=== PATIENT | female | born 1955 | race Caucasian/White ===

== ENCOUNTER 2017-11-03 22:28 | Emergency (ER) | payer MEDICARE, SELFPAY ==
[2017-11-03 22:29] VITALS: BP 131/87; PULSE 96; RESP 16; TEMP 37.2; O2SAT 95; BMI 30.9
--- NOTE | 2017-11-03 22:44 | ED.VISSUMM ---
- ER Visit Summary Date of Service: 11/03/17 Chief Complaint: [] Vomiting with possible stomach flu History of Present Illness: The patient is a 62 F presents with vomiting that started at 7 AM today. She has had 10 episodes of emesis and 10 episodes of watery diarrhea. No bad food exposures or recent antibiotics. She has had some sick contacts. She did get a flu shot. No respiratory symptoms. She has a gradual onset of a frontal achy headache. She has subjective chills and fever. Comes in for further evaluation. Denies any abdominal pain or other symptoms. Physical Examination: Vital signs reviewed General: Well-nourished well-developed Head: Normocephalic atraumatic Eyes: Pupils equal round and reactive to light extraocular movements intact ENT: TMs clear no hemotympanum no trauma Neck: Nontender full range of motion Cardiovascular: Regular rate rhythm no murmurs normal S1-S2 Respiratory: No distress clear to auscultation bilaterally chest nontender Abdomen: Soft nontender nondistended normal bowel sounds no masses Back: Nontender no CVA tenderness Extremities: Nontender active range of motion ?4 extremities no trauma Skin: Normal color no trauma Neuro alert oriented cranial nerves II through XII intact normal strength sensation reflexes Test Results: [] Emergency Department Course and Treatment: [] Patient appears nontoxic and well. Normal physical exam afebrile. Patient given IV fluids, Toradol and Zofran IV as well. Given oral Imodium. Much better after treatment. Discharge with Zofran home pack. At this time I think she has viral gastroenteritis. I do not feel she needs labs or imaging's. She will follow-up as an outpatient. Treatment Plan: [] Disposition: [] Impression: [] gastroenteritis This note was generated with [employer] dictation software. It may contain incorrect words, spelling, and punctuation that were not noted in review of the chart prior to signing ED Disposition - Plan for ED Patient: Disposition: Home or Assisted Living Chief Complaint: Nausea/Vomiting/Diarrhea Instructions: ED Diet Vomiting Diarrhea, ED Gastroenteritis Viral Prescriptions: Ondansetron [Zofran Odt] 8 mg PO Q8H PRN PRN #15 PRN Reason: Vomiting Referrals: Nehemias Rodas MD [COURTESY STAFF PHYSICIAN] -
[2017-11-03] MEDS: 0.9% Normal Saline 1,000 ML 1000 ML IV (22:50)
--- NOTE | 2017-11-03 22:54 | ED.DEP ---
ED Disposition - Plan for ED Patient: Disposition: Home or Assisted Living Chief Complaint: Nausea/Vomiting/Diarrhea Instructions: ED Diet Vomiting Diarrhea, ED Gastroenteritis Viral Prescriptions: Ondansetron [Zofran Odt] 8 mg PO Q8H PRN PRN #15 PRN Reason: Vomiting Referrals: Nehemias Rodas MD [Primary Care Provider] -
[2017-11-03] MEDS: Ondansetron 4 MG/2 ML Vial IV (22:56)
[2017-11-03] MEDS: Ketorolac 30 MG/ML Syringe IV (22:57)
[2017-11-03] MEDS: Loperamide 2 MG Capsule 4 MG PO (23:42)
[2017-11-04] MEDS: HYDROcodone Bitartrate/Apap 5/325 Tablet PO (00:03)
[2017-11-04] MEDS: Ondansetron ODT 4 MG Tablet PO (00:04)
[2017-11-04 00:11] VITALS: BP 136/74; PULSE 70; RESP 16; O2SAT 94
== END 2017-11-04 00:12 | disposition home or self-care (01) ==
PROVIDERS: Emergency Provider Emergency Medicine
DX: A08.4 Viral intestinal infection, unspecified (principal); R51 Headache; Z87.19 Personal history of other diseases of the digestive system; Z79.899 Other long term (current) drug therapy
CPT/HCPCS: 96361; 96374; 96375; 99284; J7030; A4216; J2405

== ENCOUNTER → 2019-11-24 09:03 | Outpatient (CLI) | payer MEDICARE, SELFPAY ==
--- NOTE | 2019-11-24 09:08 | RAD_ITS ---
STUDY: X-RAY - LUMBAR SPINE REASON FOR EXAM: Female, 64 years old. THORACIC BACK PAIN. L/S RADICULOPATHY, SPONDYLOSIS. BACK RADIATES TO RLE TECHNIQUE: 4 view(s) of the lumbar spine were obtained. COMPARISON: 01/30/2012 FINDINGS: Normal lumbar lordosis. There is no substantial scoliosis. There is a normal alignment of the vertebrae. Normal vertebral bodies and endplates. Normal disc space heights. Lower lumbar facet disease. Vascular calcifications. RAD/L/S Spine Min 4 Views IMPRESSION: Normal alignment. No compression deformity. Lower lumbar facet disease. Electronically Signed: Oc Nice MD at 10:42 EDT Tel , Service support ,
--- NOTE | 2019-11-24 09:08 | RAD_ITS ---
STUDY: X-RAY - THORACIC SPINE REASON FOR EXAM: Female, 64 years old. THORACIC BACK PAIN. L/S RADICULOPATHY, SPONDYLOSIS. BACK RADIATES TO RLE TECHNIQUE: 3 view(s) of the thoracic spine were obtained. COMPARISON: None. FINDINGS: Normal kyphosis of the thoracic spine. There is no substantial scoliosis. Diffuse spondylosis. Cholecystectomy clips. RAD/Thoracic Spine 3 Views IMPRESSION: Diffuse spondylosis with normal alignment. No compression deformities are seen. Electronically Signed: Oc Nice MD at 10:40 EDT Tel , Service support ,
== END ==
PROVIDERS: PCP Family Medicine; Referring Provider Nurse Practitioner Family; Visit Provider Nurse Practitioner Family
DX: M47.27 Other spondylosis with radiculopathy, lumbosacral region (principal); M54.6 Pain in thoracic spine
CPT/HCPCS: 72072; 72110

== ENCOUNTER → 2020-07-14 09:25 | Outpatient (CLI) | payer MEDICARE, SELFPAY | PROVIDERS: PCP Family Medicine; Referring Provider Nurse Practitioner Primary Care; Visit Provider Nurse Practitioner Primary Care | DX: Z03.818 Encounter for observation for suspected exposure to other biological agents ruled out (principal) | CPT/HCPCS: 87635; C9803; U0003 ==

== ENCOUNTER 2020-07-16 14:59 | Inpatient (IN) | payer MEDICARE, SELFPAY ==
[2020-07-16] VITALS (15 sets, daily range): BP systolic 72–129; BP diastolic 42–80; PULSE 50–80; RESP 16–20; TEMP 36.3–39.4; O2SAT 88–98; BMI 30.5; BMI 30.6
--- NOTE | 2020-07-16 15:45 | ED.DCSUM_ITS ---
- ER Visit Summary Date of Service: 07/16/20 Chief Complaint: Dizziness, fever, chills History of Present Illness: The patient is a 64 F who presents with dizziness, fever, and chills that have been constant for the past week. Patient states she was tested for COVID-19 recently. Patient states today she was notified she tested positive. Patient admits to some lightheadedness and dizziness that is worse when she sits up and stands up. Patient also admits to generalized body aching. Patient states she has been having watery diarrhea. Patient denies any melena or hematochezia. Patient denies any nausea or vomiting. Patient also admits to a headache. Physical Examination: Vital signs are stable except for low blood pressure of 80/42. Patient is afebrile. Patient is in no acute distress. Oral mucosa is pink and moist. Neck is supple. Trachea is midline. There is no JVD noted. Heart was regular rate and rhythm. Lungs are clear and equal bilaterally. Abdomen is soft. Bowel sounds are normal. There is no tenderness. There is no rebound or guarding noted. Skin is warm dry. Cranial nerves II through XII are intact. There are no focal motor or sensory deficits noted. Extremities are intact. There is no calf tenderness or edema. Test Results: CBC was obtained and was within normal limits. Comprehensive metabolic profile showed a hypokalemia of 2.7. Creatinine was slightly elevated at 1.75. This was elevated from previous result in 2013. Urinalysis does not show any evidence of urinary tract infection. Portable chest x-ray was obtained. There is no acute cardiopulmonary process. This was interpreted by the radiologist and reviewed by myself. Emergency Department Course and Treatment: Patient was given IV fluids here. Patient's blood pressure improved with this. Patient was ambulated in the room on room air. Patient's pulse oximeter dropped to 88% on room air while ambulating. Patient was given oral and IV potassium. Patient was given a dose of Decadron. Case was discussed with the hospitalist. He will admit the patient to the hospital. Patient understood and was agreeable with the plan. All questions were answered. Disposition: Admit to hospital Impression: 1. COVID-19 2. Hypoxia 3. Hypokalemia This note was generated with [employer] software. It may contain incorrect words, spelling, and punctuation that were not noted in review of the chart prior to signing ED Disposition - Plan for ED Patient: Disposition: Acute Care Hospital [facility] Diagnosis: COVID-19, Hypoxia, Hypokalemia Referrals: Fabricio Lemos MD [Primary Care Provider] -
--- NOTE | 2020-07-16 15:58 | RAD_ITS ---
STUDY: X-RAY CHEST REASON FOR EXAM: Female, 64 years old. Positive for covid. decrease appetite, diarrhea, weakness, dizziness and fever. TECHNIQUE: Frontal view COMPARISON: 07/05/2011 FINDINGS: The lungs are clear and expanded. There is no demonstrated pleural abnormality. Normal size heart. Normal mediastinum and trell. Normal visualized pulmonary arteries. Normal visualized aortic arch and descending thoracic aorta. Normal visualized thoracic spine. Normal visualized ribs, clavicles, and shoulders. There is no demonstrated abnormality of the visualized soft tissue structures of the upper abdomen. RAD/Chest 1 View (Portable) IMPRESSION: Normal x-ray examination of the chest. Electronically Signed: Eddie Rivera DO at 16:09 EDT Tel [phone], Service support ,
[2020-07-16] MEDS: 0.9% Normal Saline 1,000 ML 1000 ML IV ×2 (16:26→19:00)
[2020-07-16 16:30] LABS: Absolute Lymphocyte Count 0.67 X10^3/uL (0.83-4.51); Absolute Neutrophil Count 3.4 X10^3/uL (2.0-7.7); Hemoglobin 15.2 g/dL (12.0-15.0); Lymphocyte # 0.67 X10^3/ul (4.0); Lymphocyte % 14.6 % (19-41); Mean Corpuscular Hgb 28.8 pg (27.0-32.0); Mean Corpuscular Volume 87.1 fL (81-99); Mean Platelet Vol. 10.2 fl (6.2-12.0); Monocyte# 0.47 X10^3/uL; Monocyte% 10.2 % (0-10); NRBC Flagged by Analyzer 0 % (0-5); Neutrophil # 3.44 X10^3/uL (2.7-7.7); Platelet Count 189 K/mm3 (150-450); RBC Distribution Width CV 12.9 % (11.6-14.6); RBC Distribution Width SD 41.1 fl (35.1-43.9); Red Blood Count 5.28 M/mm3 (4.2-5.4); White Blood Count 4.6 K/mm3 (4.4-11.0)
[2020-07-16 16:31] LABS: Mucous, Urine 0 SEEN /hpf (<or=2+); Red Blood Cells-Urine 0 SEEN /hpf (0-5)
[2020-07-16 16:35] LABS: Color, Urine Yellow (Yellow); Glucose, Dipstick Normal (Normal); Ketone-Dipstick 5 mg/dl (Negative); Leukocyte Esterase-Dipstick 25 /ul (Negative); Nitrite-Dipstick Negative (Negative); Occult Blood-Urine 10 /ul (Negative); Protein-Dipstick 30 mg/dl (Negative); Urine Bilirubin Dipstick Negative (Negative); Urine Clarity Sl. Cloudy (Clear); Urine Urobilinogen Normal (Normal)
[2020-07-16 16:59] LABS: Bacteria 1+ /hpf (None Seen); Squamous Epithelial Cells - UA 5-10 SEEN /hpf (5-10); White Blood Cells 0-5 SEEN /hpf (0-5)
[2020-07-16 17:11] LABS: ALB/GLOB Ratio 0.9 RATIO (0.9-2.4); AST(SGOT) 41 U/L (15-37); Alanine Aminotransfer ALT/SGPT 35 U/L (13-56); Albumin, Serum 3.6 g/dL (3.2-5.0); Alkaline Phosphatase 80 U/L (45-117); Anion Gap 7 (5-15); BUN 24 mg/dL (7-18); BUN/Creat Ratio 13.7 RATIO (10-20); Calcium,Total 8.6 mg/dL (8.5-10.1); Chloride 99 mmol/L (98-107); Creatinine, Serum 1.75 mg/dL (0.55-1.02); EST Glomerular Filtration Rate 31 mL/min (>60); Est Glom Filt Rate - Afr Amer 37 mL/min (>60); Estimated Creatinine Clearance 27.68 ml/min; Globulin 4.1 g/dL (2.2-4.2); Glucose 121 mg/dL (74-106); Lipase 187 U/L (73-393); Potassium 2.7 mmol/L (3.5-5.1); Protein, Total 7.7 g/dL (6.4-8.2); Sodium Level 137 mmol/L (136-145)
[2020-07-16] MEDS: Potassium Chloride 10mEq/100mL 10 MEQ/100 ML IV.SOLN. 100 MEQ IV BOLUS (18:16)
[2020-07-16] MEDS: dexAMETHasone 10 MG/ML Vial IV (20:16)
--- NOTE | 2020-07-16 20:20 | PCM.HP.STD ---
Problem List (1) Respiratory insufficiency Status: Acute (2) COVID-19 Status: Acute (3) Hypokalemia Status: Acute (4) Hypoxia Status: Acute History of Present Illness Date of Admission: 07/16/20 Chief Complaint: Malaise and diarrhea The patient is a 64 year old F with a significant history of hypertension; chronic hypokalemia; and back pain who presents emergency department with a history of malaise and diarrhea. Also she has productive cough of clear sputum. She reports a temperature of 102 Fahrenheit at home. She has chills and rigors. She has anorexia. She did a Covid test 3 days ago and on the day of presentation her Covid test was reported to her as positive. She came to emergency department for further treatment. Patient was found to be orthostatic positive at emergency department. She received IV fluid boluses. Acute respiratory insufficiency SARS COVID-19 infection Review of [facility] records shows that Covid test on 07/14/2020 was positive. Chest x-ray interpreted by radiologist and actual chest x-ray image interpreted by myself: No acute cardiopulmonary process noted. Dimer was mildly elevated at 1.36. Dexamethasone 10 mg IV given at emergency department. Dexamethasone 6 mg p.o. daily ordered. Infectious disease consult and pulmonology consult. Tylenol for fever. Orthostatic hypotension See normal saline bolus at emergency department. Because of concomitant hands hypokalemia will order normal saline with 20 mEq of potassium going at 100 MLS per hour. Acute diarrhea Likely secondary to coronavirus 19 infection Supportive treatment with IV hydration as above. Imodium as needed ordered. Acute on chronic hypokalemia Acute hypokalemia likely secondary to diarrhea. Received potassium IV replacement at the emergency department. Normal saline with potassium ordered as above. On home potassium supplementation p.o., continued. Trend BMP. Check magnesium. JARRETT Her creatinine on presentation was 1.75 BUN is 24. BUN/creatinine is 13.7. Review of [facility] records shows that her creatinine on 04/09/2020 was 1.02. BUN at that time was 11. Likely prerenal secondary to dehydration from diarrhea and now entering into intrinsic renal. IV hydration. Trend CMP DVT prophylaxis Subcutaneous Lovenox per Covid protocol.. Past Medical History Medical History: Medical History (Last Reviewed 07/16/20 @ 23:[address] Richard Gaona MD) HTN (hypertension) I10 Allergies DAVID Inhibitors Allergy (Verified 07/16/20 15:04) Rash codeine Allergy (Verified 07/16/20 15:04) Vomiting walnut Allergy (Verified 07/16/20 15:04) Food Allergy Home Medications: Ambulatory Orders Medication Instructions Recorded Hydrocodone/Acetaminophen 1 tab PO TID PRN 11/03/17 [Hydrocodon-Acetaminophen 5-325] Levothyroxine [Synthroid] 25 mcg PO DAILY 11/03/17 Gabapentin [Neurontin] 400 mg PO TID 07/16/20 Hydrochlorothiazide [Hctz] 25 mg PO DAILY 07/16/20 Losartan Potassium [Cozaar] 100 mg PO DAILY 07/16/20 Omeprazole 40 mg PO BID 07/16/20 Potassium Citrate [Potassium 40 meq PO DAILY 07/16/20 Citrate ER] Surgical History: appendectomy, cholecystectomy, tonsillectomy, - - Benign lump was removed from bilateral breast. Vein stripping. Removal of heel spurs. Smoking Status: Former smoker - *Family History Maternal History Items: Cancer - Lungs Paternal History Items: Cancer - Lungs Review of Systems Constitutional: Reports: Anorexia, Chills, Fever, Malaise, Fatigue. Denies: Weight Change HEENT: Denies: Head Aches, Sinus Congestion, Sinus Drainage Cardiovascular: Denies: Chest Pain, Palpitations Respiratory: Reports: Cough, Sputum production. Denies: Shortness of breath at rest Gastrointestinal: Reports: Diarrhea. Denies: Abdominal Pain, Nausea, Vomiting Genitourinary: Denies: Dysuria Musculoskeletal: Denies: Joint Pain, Joint Tenderness Skin: Denies: Rash, Wounds Neurological: Denies: Numbness, Tingling, Focal weakness Psychiatric: Denies: Anxiety, Depression, Homicidal Ideations, Suicidal Ideations Hematologic/ Lymphatic: Denies: Easy Bruising, Easy Bleeding VTE Information - Inpt Only VTE Present on Admission: No VTE Mechan Device Prophylaxis: None VTE Pharm Prophylaxis ordered?: Yes Patient Problems: Active and Suspected Problems (Last Updated 07/16/20 @ 20:[address] Richard Gaona MD) COVID-19 (Acute) Hypoxia (Acute) Hypokalemia (Acute) Respiratory insufficiency (Acute) - Physical Exam Vitals/I&O's: Vital Signs Temp Pulse Resp BP Pulse Ox 100.9 F H 72 18 109/59 L 93 10/30/20 20:18 07/16/20 20:18 07/16/20 20:18 07/16/20 20:18 07/16/20 20:18 Oxygen Flow Rate (L/min) 2 Oxygen Delivery Method Nasal Cannula Weight: 79.379 kg Body Mass Index (BMI) 30.0 Intake and Output for Last 24 Hours 07/14/20 07/15/20 07/16/20 23:59 23:59 23:59 Intake Total 2099 Balance 2099 General: Alert, Oriented x3, Cooperative HEENT: Atraumatic, PERRLA, EOMI, Normocephalic Neck: Supple, No JVD, Negative Carotid Bruits Lungs: Clear to auscultation, Normal air movement Cardiovascular: Regular rate, No murmurs Abdomen: Bowel Sounds Present, Soft, Non Tender Extremities: No edema, Capillary Refill Less than 3 Seconds Skin: No rashes, No breakdown Musculoskeletal: No Tenderness to Palpation of Joints or Extremities Neurological: Cranial nerves II-XII grossly intact Psych/Mental Status: Normal Affect, Appropriate Laboratory Results 07/16/20 16:00: WBC 4.6, RBC 5.28, Hgb 15.2 H, Hct 46.0, MCV 87.1, MCH 28.8, MCHC 33.0, RDW Std Deviation 41.1, RDW Coeff of Brittanie 12.9, Plt Count 189, MPV 10.2, Immature Gran % (Auto) 0.200, Neut % (Auto) 75.0 H, Lymph % (Auto) 14.6 L, [place] % (Auto) 10.2 H, Eos % (Auto) 0.0, Baso % (Auto) 0.0, Absolute Neuts (auto) 3.4, Absolute Lymphs (auto) 0.67 L, Nucleated RBC % 0 07/16/20 16:00: Sodium 137, Potassium 2.7 L*, Chloride 99, Carbon Dioxide 31.0, Anion Gap 7, BUN 24 H, Creatinine 1.75 H, Estim Creat Clear Calc 27.68, Est GFR (MDRD) Af Amer 37 L, Est GFR (MDRD) Non-Af 31 L, BUN/Creatinine Ratio 13.7, Glucose 121 H, Calcium 8.6, Total Bilirubin 0.30, AST 41 H, ALT 35, Alkaline Phosphatase 80, Total Protein 7.7, Albumin 3.6, Globulin 4.1, Albumin/Globulin Ratio 0.9, Lipase 187 07/16/20 16:00: Urine Color Yellow, Urine Clarity Sl. Cloudy, Urine pH 5.0, Ur Specific [place] 1.020, Urine Protein 30 H, Urine Glucose (UA) Normal, Urine Ketones 5 H, Urine Occult Blood 10 H, Urine Nitrite Negative, Urine Bilirubin Negative, Urine Urobilinogen Normal, Ur Leukocyte Esterase 25 H, Urine RBC 0 SEEN, Urine WBC 0-5 SEEN, Ur Squamous Epith Cells 5-10 SEEN, Urine Bacteria 1+, Urine Mucus 0 SEEN 07/16/20 18:15: Lactic Acid 1.0 Assessment/Plan All Active Problems (Last Updated 07/16/20 @ 20:[address] Richard Gaona MD) COVID-19 (Acute) Hypoxia (Acute) Hypokalemia (Acute) Respiratory insufficiency (Acute) Acute respiratory insufficiency SARS COVID-19 infection Oxygen saturation of 88% on ambulation. Review of [facility] records shows that Covid test on 07/14/2020 was positive. Chest x-ray interpreted by radiologist and actual chest x-ray image interpreted by myself: No acute cardiopulmonary process noted. Dimer was mildly elevated at 1.36. Dexamethasone 10 mg IV given at emergency department. Dexamethasone 6 mg p.o. daily ordered. Infectious disease consult and pulmonology consult. Tylenol for fever. Orthostatic hypotension Hold home blood pressure medications. Received normal saline bolus at emergency department. Because of concomitant hands hypokalemia will order normal saline with 20 mEq of potassium going at 100 MLS per hour. Acute diarrhea Likely secondary to coronavirus 19 infection Supportive treatment with IV hydration as above. Imodium as needed ordered. Acute on chronic hypokalemia Acute hypokalemia likely secondary to diarrhea. Received potassium replacement at the emergency department. Normal saline with potassium ordered as above. On home potassium supplementation p.o., continued. Trend BMP. Check magnesium. JARRETT Her creatinine on presentation was 1.75 BUN is 24. BUN/creatinine is 13.7. Review of [facility] records shows that her creatinine on 04/09/2020 was 1.02. BUN at that time was 11. Likely prerenal secondary to dehydration from diarrhea and now entering into intrinsic renal. Gentle IV hydration. Avoid nephrotoxins. Home hydrochlorothiazide and losartan held. Trend CMP Chronic back pain Gabapentin and [place] continued. Hypothyroidism Synthroid continued. GERD Omeprazole continued. DVT prophylaxis Subcutaneous Lovenox per Covid protocol.. Inpatient E&M: 43775 In Hosp L3
[2020-07-16] MEDS: Acetaminophen 500 MG Tablet 1000 MG PO (21:30)
[2020-07-16 22:49] LABS: Magnesium 1.7 mg/dL (1.6-2.6)
[2020-07-16 23:16] LABS: D-Dimer Quantitative (DVT/PE) 1.36 FEU/ug/m (0.27-0.49)
[2020-07-17] VITALS (12 sets, daily range): BP systolic 83–118; BP diastolic 47–70; PULSE 41–65; RESP 18–20; TEMP 36.6–37.3; O2SAT 93–96; BMI 30.5
[2020-07-17] MEDS: Pantoprazole Sodium 40 MG Tablet PO ×3 (00:09→23:58)
[2020-07-17] MEDS: Loperamide 2 MG Capsule PO ×2 (00:09→10:05)
[2020-07-17] MEDS: HYDROcodone Bitartrate/Apap 5/325 Tablet PO ×2 (00:09→23:58)
[2020-07-17] MEDS: Gabapentin 400 MG Capsule PO ×4 (00:09→16:41)
[2020-07-17 08:04] LABS: Absolute Neutrophil Count 1.7 X10^3/uL (2.0-7.7); Hematocrit 44.4 % (37-47); Lymphocyte % 24.6 % (19-41); Mean Corp Hgb Conc 31.5 g/dL (32-36); Mean Corpuscular Hgb 28.3 pg (27.0-32.0); Mean Corpuscular Volume 89.7 fL (81-99); Mean Platelet Vol. 10.7 fl (6.2-12.0); Monocyte# 0.15 X10^3/uL; Monocyte% 6.1 % (0-10); NRBC Flagged by Analyzer 0 % (0-5); Neutrophil # 1.68 X10^3/uL (2.7-7.7); Neutrophil % 68.9 % (47-70); POSITIVE DIFFERENTIAL YES; Platelet Count 171 K/mm3 (150-450); RBC Distribution Width CV 13.1 % (11.6-14.6); RBC Distribution Width SD 43.3 fl (35.1-43.9); Red Blood Count 4.95 M/mm3 (4.2-5.4); White Blood Count 2.4 K/mm3 (4.4-11.0)
[2020-07-17 08:09] LABS: Differential Indicated SCAN CRITERIA MET
[2020-07-17 08:23] LABS: ALB/GLOB Ratio 0.8 RATIO (0.9-2.4); AST(SGOT) 34 U/L (15-37); Alanine Aminotransfer ALT/SGPT 27 U/L (13-56); Albumin, Serum 2.7 g/dL (3.2-5.0); Alkaline Phosphatase 63 U/L (45-117); Anion Gap 8 (5-15); BUN 24 mg/dL (7-18); BUN/Creat Ratio 14.8 RATIO (10-20); Calcium,Total 7.8 mg/dL (8.5-10.1); Chloride 113 mmol/L (98-107); Creatinine, Serum 1.62 mg/dL (0.55-1.02); EST Glomerular Filtration Rate 34 mL/min (>60); Est Glom Filt Rate - Afr Amer 41 mL/min (>60); Globulin 3.6 g/dL (2.2-4.2); Glucose 159 mg/dL (74-106); Potassium 3.7 mmol/L (3.5-5.1); Protein, Total 6.3 g/dL (6.4-8.2); Sodium Level 143 mmol/L (136-145)
[2020-07-17 09:07] LABS: Magnesium 1.9 mg/dL (1.6-2.6)
[2020-07-17] MEDS: Enoxaparin 30 MG/0.3 ML Syringe SC (10:03)
[2020-07-17] MEDS: dexAMETHasone 4 MG Tablet 6 MG PO (10:04)
[2020-07-17] MEDS: Levothyroxine 25 MCG TABLET PO (10:05)
[2020-07-17] MEDS: Acetaminophen 325 MG Tablet 650 MG PO ×2 (10:07→23:25)
[2020-07-17 10:16] LABS: Differential Comment SCANNED
--- NOTE | 2020-07-17 10:45 | CASEMGMT ---
RN CM called patient in room for initial transition planning/care coordination assessment. RN CM introduced self and role at [facility]. Patient alert and oriented. Patient willing to participate in assessment and is able to answer all questions appropriately. Care providers, pharmacy, and demographics verified. Patient wishes to discharge home, denies need for home health at this time. Patient states she has no further needs or concerns at this time. CM to follow for discharge planning needs that may arise. PCP: Aminta Specialists: kenroy Hoffmann Preferred Pharmacy: [facility] Retail Insurance: [facility] Prescription Benefit: yes Living Will/HPOA: none LNOK: Living Arrangements: Patient lives with in a mobile home with 4 steps and railing at home. Patient states she is independent at home. Patient and are able to self isolate at home and have family bring them groceries and supplies. Transportation: self, DME/HHC: Patient denies DME or previous HHC. Patient provided list of DME and [facility] is preferred. Will monitor for need for home oxygen. Disposition Plan: Patient to discharge home with family support and follow-up plans in place. Carlie BERNAL, RN, CM
--- NOTE | 2020-07-17 11:47 | NT.THERAPY_ITS ---
Nutrition Therapy Report - History Current diet / nutrition support order:: regular diet, 120mL Ensure Clear TID - Anthropometric Measurements Height:: 5 ft 4 in Weight:: 80.739 kg Body Mass Index (BMI):: 30.5 - Relevant Labs Relevant Labs:: WBC 2.4 K/mm3 (4.4-11.0) L 07/17/20 07:00 Hgb 15.2 g/dL (12.0-15.0) H 07/16/20 16:00 MCHC 31.5 g/dL (32-36) L 07/17/20 07:00 Neut % (Auto) 75.0 % (47-70) H 07/16/20 16:00 Lymph % (Auto) 14.6 % (19-41) L 07/16/20 16:00 [place] % (Auto) 10.2 % (0-10) H 07/16/20 16:00 Absolute Neuts (auto) 1.7 X10^3/uL (2.0-7.7) L 07/17/20 07:00 Absolute Lymphs (auto) 0.60 X10^3/uL (0.83-4.51) L 07/17/20 07:00 D-Dimer Quant (PE/DVT) 1.36 FEU/ug/m (0.27-0.49) H* 07/16/20 22:53 Potassium 2.7 mmol/L (3.5-5.1) L* 07/16/20 16:00 Chloride 113 mmol/L (98-107) H 07/17/20 07:00 BUN 24 mg/dL (7-18) H 07/17/20 07:00 Creatinine 1.62 mg/dL (0.55-1.02) H 07/17/20 07:00 Est GFR (MDRD) Af Amer 41 mL/min (>60) L 07/17/20 07:00 Est GFR (MDRD) Non-Af 34 mL/min (>60) L 07/17/20 07:00 Glucose 159 mg/dL (74-106) H 07/17/20 07:00 Calcium 7.8 mg/dL (8.5-10.1) L 07/17/20 07:00 AST 41 U/L (15-37) H 07/16/20 16:00 Total Protein 6.3 g/dL (6.4-8.2) L 07/17/20 07:00 Albumin 2.7 g/dL (3.2-5.0) L 07/17/20 07:00 Albumin/Globulin Ratio 0.8 RATIO (0.9-2.4) L 07/17/20 07:00 - Assessment Food / Nutrition-Related History:: Pt currently in isolation d/t COVID-19. Spoke w/ pt via room phone. Pt reports very poor PO intake w/ descreased appetite for ~1 week [employer]ULANCE [employer]. States she ate better at breakfast this AM, says cream of wheat actually tasted good. UBW 183# and CBW 178#-5#/2.7% wt loss x 1 week, significant for acute malnutrition. Pt complains of diarrhea currently and [employer]BULANCE [employer]. - Nutrition Diagnosis Problem / Etiology / Signs & Symptoms (PES):: Pt w/ moderate, acute malnutrition r/t inadequate energy intake w/ COVID-19 infection as evidenced by 5#/2.7% wt loss x 1 week and estimated PO intake meeting less than 75% of pt's estimated PO needs for 1 week [employer]BULANCE [employer]. Evidence of Malnutrition Exists:: Yes Moderate PCM:: Acute Illness - Nutrition Intervention Nutrition Prescription:: [id number] calories, 70-80 g protein - Food / Nutrient Delivery Interventions Summary of nutrition intervention:: Discussed ONS w/ pt- agreeable to trying Ensure Enlive w/ meals for increased calories/protein if consumed. Will d/c from MAR and add to diet order. Nutrition support ordered as / adjusted to:: continue regular diet; will d/c ensure clear from MAR and add ensure enlive to diet order - MNT Monitoring Further MNT monitoring and evaluation required?: Yes MNT Follow-up in:: 3-5 days
--- NOTE | 2020-07-17 15:21 | PCM.CONS.PUL ---
Problem List (1) COVID-19 Status: Acute (2) Hypoxia Status: Acute (3) Hypokalemia Status: Acute (4) Respiratory insufficiency Status: Acute Reason for Consult Date of Consultation: 07/17/20 Reason for Consultation: Hypoxia, COVID-19 History of Present Illness: The patient is a 64 year old F with past medical history listed below, who presented [facility] on 07/16/2020 secondary to dizziness, fever and chills for over the last week. Patient reportedly has been tested positive for COVID-19 as an outpatient. Patient states that lightheadedness and dizziness was worse with sitting and standing up. Patient had also reported generalized body aches and having some watery diarrhea. Patient denied any melena, hematochezia, nausea or vomiting. Patient does have a headache. Patient has not had an issue with low blood pressures previously. On presentation to the emergency department, patient was notable to have hypotension at 80/42. Patient was afebrile. Laboratory work-up showed hypokalemia 2.7 with an elevated creatinine at 1.75. Patient did receive fluid boluses in the ER and was admitted to the floor for further evaluation. Since being in the hospital, patient has required 3 to 4 L nasal cannula to maintain saturations. Patient blood pressures continue to be marginal and she continues to be bradycardic. Patient states that both of these are new problems for her. Patient does report that she has had a history of kidney disease, but is unaware of the exact function. Patient does report a history of smoking. Patient states that she quit smoking when she was told that she was developing COPD. Patient does not follow with a clinical documentation specialist at baseline. Review of systems otherwise negative from a constitutional, HEENT, respiratory, cardiovascular, GI, genitourinary, musculoskeletal, skin, neurologic, psychiatric and hematologic system unless stated above. Past Medical History Medical History: Medical History (Last Reviewed 07/16/20 @ 23:[address] Richard Gaona MD) HTN (hypertension) I10 Allergies DAVID Inhibitors Allergy (Verified 07/16/20 15:04) Rash codeine Allergy (Verified 07/16/20 15:04) Vomiting walnut Allergy (Verified 07/16/20 15:04) Food Allergy Home Medications: Ambulatory Orders Medication Instructions Recorded Hydrocodone/Acetaminophen 1 tab PO TID PRN 11/03/17 [Hydrocodon-Acetaminophen 5-325] Levothyroxine [Synthroid] 25 mcg PO DAILY 11/03/17 Gabapentin [Neurontin] 400 mg PO TID 07/16/20 Hydrochlorothiazide [Hctz] 25 mg PO DAILY 07/16/20 Losartan Potassium [Cozaar] 100 mg PO DAILY 07/16/20 Omeprazole 40 mg PO BID 07/16/20 Potassium Citrate [Potassium 40 meq PO DAILY 07/16/20 Citrate ER] Surgical History: appendectomy, cholecystectomy, tonsillectomy, - - Benign lump was removed from bilateral breast. Vein stripping. Removal of heel spurs. Smoking Status: Former smoker Tobacco Use: Cigarettes - *Family History Maternal History Items: Cancer - Lungs Paternal History Items: Cancer - Lungs Review of Systems Comment: See HPI Patient Problems: Active and Suspected Problems (Last Reviewed 07/16/20 @ 23:[address] Richard Gaona MD) COVID-19 (Acute) Hypoxia (Acute) Hypokalemia (Acute) Respiratory insufficiency (Acute) Objective: X-ray was personally reviewed and appears to be relatively unremarkable. Patient does not have a history of an echocardiogram or pulmonary function tests available for review in the computer. - Physical Exam Vitals/I&O's: Vital Signs Temp Pulse Resp BP Pulse Ox 36.8 C 44 L 18 98/54 L 94 07/17/20 15:00 07/17/20 15:00 07/17/20 15:00 07/17/20 15:00 07/17/20 15:00 Oxygen Flow Rate (L/min) 4 Oxygen Delivery Method Nasal Cannula Weight: 80.739 kg Body Mass Index (BMI) 30.5 Intake and Output for Last 24 Hours 07/15/20 07/16/20 07/17/20 23:59 23:59 23:59 Intake Total 2340 / 2340 1440 / 1440 Balance 2340 / 2340 1440 / 1440 General: Alert, Oriented x3, Cooperative, No apparent distress, - - Speaking in full sentences. HEENT: Atraumatic, PERRLA, EOMI, Normocephalic, - - No scleral icterus or injection noted Oral: Moist Mucosa, No Gingival or Mucosal Lesions/ Ulcerations Neck: Supple, No JVD, No Nodes, Trachea Midline Lungs: Clear to auscultation, Normal air movement, No rhonchi, No wheeze, No rales, - - Symmetric expansion. No dullness to percussion. Cardiovascular: Normal S1, Normal S2, No murmurs, Bradycardic, No rub noted, No Gallop Abdomen: Bowel Sounds Present, Soft, Non Tender, Distended - Slightly Extremities: No clubbing, No cyanosis, No edema, Capillary Refill Less than 3 Seconds Skin: No rashes, No breakdown Musculoskeletal: No Tenderness to Palpation of Joints or Extremities Lymphatic: No Cervical, Supraclavicular, or Inguinal Adenopathy Neurological: Cranial nerves II-XII grossly intact, Neuro grossly intact, Motor Exam 5/5 strength throughout Psych/Mental Status: Alert and oriented to time, place, person, mood and affect Laboratory Results 07/16/20 16:00: WBC 4.6, RBC 5.28, Hgb 15.2 H, Hct 46.0, MCV 87.1, MCH 28.8, MCHC 33.0, RDW Std Deviation 41.1, RDW Coeff of Brittanie 12.9, Plt Count 189, MPV 10.2, Immature Gran % (Auto) 0.200, Neut % (Auto) 75.0 H, Lymph % (Auto) 14.6 L, [place] % (Auto) 10.2 H, Eos % (Auto) 0.0, Baso % (Auto) 0.0, Absolute Neuts (auto) 3.4, Absolute Lymphs (auto) 0.67 L, Nucleated RBC % 0 07/16/20 16:00: Sodium 137, Potassium 2.7 L*, Chloride 99, Carbon Dioxide 31.0, Anion Gap 7, BUN 24 H, Creatinine 1.75 H, Estim Creat Clear Calc 27.68, Est GFR (MDRD) Af Amer 37 L, Est GFR (MDRD) Non-Af 31 L, BUN/Creatinine Ratio 13.7, Glucose 121 H, Calcium 8.6, Total Bilirubin 0.30, AST 41 H, ALT 35, Alkaline Phosphatase 80, Total Protein 7.7, Albumin 3.6, Globulin 4.1, Albumin/Globulin Ratio 0.9, Lipase 187 07/16/20 16:00: Urine Color Yellow, Urine Clarity Sl. Cloudy, Urine pH 5.0, Ur Specific [place] 1.020, Urine Protein 30 H, Urine Glucose (UA) Normal, Urine Ketones 5 H, Urine Occult Blood 10 H, Urine Nitrite Negative, Urine Bilirubin Negative, Urine Urobilinogen Normal, Ur Leukocyte Esterase 25 H, Urine RBC 0 SEEN, Urine WBC 0-5 SEEN, Ur Squamous Epith Cells 5-10 SEEN, Urine Bacteria 1+, Urine Mucus 0 SEEN 07/16/20 16:00: Magnesium 1.7 07/16/20 18:15: Lactic Acid 1.0 07/16/20 22:53: D-Dimer Quant (PE/DVT) 1.36 H* 07/17/20 07:00: WBC 2.4 L, RBC 4.95, Hgb 14.0, Hct 44.4, MCV 89.7, MCH 28.3, MCHC 31.5 L, RDW Std Deviation 43.3, RDW Coeff of [place]anie 13.1, Plt Count 171, MPV 10.7, Immature Gran % (Auto) 0.400, Neut % (Auto) 68.9, Lymph % (Auto) 24.6, [place] % (Auto) 6.1, Eos % (Auto) 0.0, Baso % (Auto) 0.0, Absolute Neuts (auto) 1.7 L, Absolute Lymphs (auto) 0.60 L, Nucleated RBC % 0, Differential Comment SCANNED 07/17/20 07:00: Sodium 143, Potassium 3.7, Chloride 113 H, Carbon Dioxide 22.0, Anion Gap 8, BUN 24 H, Creatinine 1.62 H, Estim Creat Clear Calc 29.90, Est GFR (MDRD) Af Amer 41 L, Est GFR (MDRD) Non-Af 34 L, BUN/Creatinine Ratio 14.8, Glucose 159 H, Calcium 7.8 L, Total Bilirubin 0.20, AST 34, ALT 27, Alkaline Phosphatase 63, Total Protein 6.3 L, Albumin 2.7 L, Globulin 3.6, Albumin/Globulin Ratio 0.8 L 07/17/20 07:00: Magnesium 1.9 Current Medications Acetaminophen (Acetaminophen 325 Mg Tablet) 650 mg PO Q6H PRN PRN PRN Reason: Pain Score 1-10/Temp > 100.7 F Last Admin: 07/17/20 10:07 Dose: 650 mg Documented by: Hydrocodone Bitart/Acetaminophen (Hydrocodone Bitartrate/Apap 5/325 Tablet) 1 tablet PO TID PRN PRN PRN Reason: Pain Score 1-10 Last Admin: 07/17/20 00:09 Dose: 1 tablet Documented by: Dexamethasone (Dexamethasone 4 Mg Tablet) 6 mg PO DAILY@0800 [facility] Last Admin: 07/17/20 10:04 Dose: 6 mg Documented by: Enoxaparin Sodium (Enoxaparin 30 Mg/0.3 Ml Syringe) 30 mg SC BID [facility] Last Admin: 07/17/20 10:03 Dose: 30 mg Documented by: Gabapentin (Gabapentin 400 Mg Capsule) 400 mg PO TIDCM [facility] Last Admin: 07/17/20 12:09 Dose: 400 mg Documented by: Potassium Chloride/Sodium Chloride () 1,000 mls @ 125 mls/hr IV .Q8H [facility] Last Infusion: 07/17/20 12:10 Dose: 125 mls/hr Documented by: Levothyroxine Sodium (Levothyroxine 25 Mcg Tablet) 25 mcg PO DAILY [facility] Last Admin: 07/17/20 10:05 Dose: 25 mcg Documented by: Loperamide HCl (Loperamide 2 Mg Capsule) 2 mg PO Q4H PRN PRN PRN Reason: DIARRHEA/LOOSE STOOLS Last Admin: 07/17/20 10:05 Dose: 2 mg Documented by: Melatonin (Melatonin 3 Mg Tablet) 3 mg PO QHS PRN PRN PRN Reason: INSOMNIA Ondansetron HCl (Ondansetron 4 Mg/2 Ml Vial) 4 mg IV Q8H PRN PRN PRN Reason: NAUSEA/VOMITING Pantoprazole Sodium (Pantoprazole Sodium 40 Mg Tablet) 40 mg PO BID [facility] Last Admin: 07/17/20 10:05 Dose: 40 mg Documented by: Potassium Chloride (Potassium Chloride 20 Meq Tablet) 40 meq PO DAILYCM [facility] Last Admin: 07/17/20 10:05 Dose: 40 meq Documented by: Sodium Chloride (0.9% Saline Lock 10 Ml Syringe) 10 - 40 ml IV UD PRN PRN Reason: SALINE FLUSH Clinical Impression(s) from Imaging Studies Chest X-Ray 07/16/20 15:58 IMPRESSION: Normal x-ray examination of the chest. Electronically Signed: Eddie Rivera DO at 16:09 EDT Tel [phone], Service support , Assessment/Plan All Active Problems (Last Reviewed 07/16/20 @ 23:[address] Richard Gaona MD) COVID-19 (Acute) Hypoxia (Acute) Hypokalemia (Acute) Respiratory insufficiency (Acute) RECOMMENDATIONS: 1. Initiate empiric antibiotics pending culture data 2. No Remdesivir given renal function 3. Continue Decadron and Lovenox 4. Gentle volume resuscitation 5. Walking oximetry prior to discharge IMPRESSIONS: 1. Acute hypoxic respiratory insufficiency secondary to COVID-19 Clear patient has a baseline of COPD. No PFTs are available for review. Chest x-ray was relatively unimpressive. Patient reportedly is on day 7-10 of symptoms. Patient does appear to have predominantly GI manifestations at this time. Continue Decadron therapy. Given patient's renal function, will hold off on remdesivir for now. 2. Hypotension Unclear etiology. Patient may have sepsis leading to current presentation. Patient did have diarrhea, but otherwise has no etiology of volume loss. Patient did receive 2 L, but remains bradycardic, not tachycardic as well would be expected with hypovolemic hypotension. Will place patient on empiric antibiotics pending culture data. Patient may require an echocardiogram for evaluation of cardiomyopathy, but defer to primary service. Baseline antihypertensives on hold. Another possible etiology would include retention of drug secondary to renal function. 3. Hypokalemia/acute kidney injury/advanced age Kids care, management, recovery and prognosis. Patient responded well to supplementation of potassium. Baseline creatinine appears to be 1.02 and did improve with fluid resuscitation. Okay to continue with IV fluids from my perspective. Inpatient E&M: 27879 Init Hosp L3
--- NOTE | 2020-07-17 16:15 | PN_ITS ---
Patient Problems: Active and Suspected Problems (Last Reviewed 07/16/20 @ 23:[address] Richard Gaona MD) COVID-19 (Acute) Hypoxia (Acute) Hypokalemia (Acute) Respiratory insufficiency (Acute) Reason for Visit: Follow-up up on hypoxia/COVID-19 infection Subjective: Patient was seen and examined. She stated that she feels improved. She has been having frequent stools. Her blood pressure has been relatively low. She is on IV fluids. Heart rate has also been low. She is not on any beta-lashay or calcium channel lashay. Vitals/I&O's: Vital Signs Temp Pulse Resp BP Pulse Ox 98.2 F 46 L 18 98/54 L 94 07/17/20 15:00 07/17/20 15:24 07/17/20 15:00 07/17/20 15:00 07/17/20 15:00 Oxygen Flow Rate (L/min) 4 Oxygen Delivery Method Nasal Cannula Weight: 80.739 kg Body Mass Index (BMI) 30.5 Intake and Output for Last 24 Hours 07/15/20 07/16/20 07/17/20 23:59 23:59 23:59 Intake Total 2340 / 2340 1440 / 1440 Balance 2340 / 2340 1440 / 1440 General: Alert, Oriented x3, Cooperative, No apparent distress, - - on 4L oxygen HEENT: Atraumatic, PERRLA, EOMI, Normocephalic Oral: Moist Mucosa Neck: Supple Lungs: Diminished Cardiovascular: Regular rate, Regular Rhythm, Normal S1, Normal S2, No murmurs Abdomen: Bowel Sounds Present, Soft, Non Tender, Non-Distended, No Hepato- splenomegaly Extremities: No edema Skin: No rashes Musculoskeletal: No Tenderness to Palpation of Joints or Extremities Lymphatic: No Cervical, Supraclavicular, or Inguinal Adenopathy Neurological: Cranial nerves II-XII grossly intact, Neuro grossly intact Psych/Mental Status: Normal Affect, Appropriate Laboratory Results 07/16/20 16:00: WBC 4.6, RBC 5.28, Hgb 15.2 H, Hct 46.0, MCV 87.1, MCH 28.8, MCHC 33.0, RDW Std Deviation 41.1, RDW Coeff of Brittanie 12.9, Plt Count 189, MPV 10.2, Immature Gran % (Auto) 0.200, Neut % (Auto) 75.0 H, Lymph % (Auto) 14.6 L, [place] % (Auto) 10.2 H, Eos % (Auto) 0.0, Baso % (Auto) 0.0, Absolute Neuts (auto) 3.4, Absolute Lymphs (auto) 0.67 L, Nucleated RBC % 0 07/16/20 16:00: Sodium 137, Potassium 2.7 L*, Chloride 99, Carbon Dioxide 31.0, Anion Gap 7, BUN 24 H, Creatinine 1.75 H, Estim Creat Clear Calc 27.68, Est GFR (MDRD) Af Amer 37 L, Est GFR (MDRD) Non-Af 31 L, BUN/Creatinine Ratio 13.7, Glucose 121 H, Calcium 8.6, Total Bilirubin 0.30, AST 41 H, ALT 35, Alkaline Phosphatase 80, Total Protein 7.7, Albumin 3.6, Globulin 4.1, Albumin/Globulin Ratio 0.9, Lipase 187 07/16/20 16:00: Urine Color Yellow, Urine Clarity Sl. Cloudy, Urine pH 5.0, Ur Specific [place] 1.020, Urine Protein 30 H, Urine Glucose (UA) Normal, Urine Ketones 5 H, Urine Occult Blood 10 H, Urine Nitrite Negative, Urine Bilirubin Negative, Urine Urobilinogen Normal, Ur Leukocyte Esterase 25 H, Urine RBC 0 SEEN, Urine WBC 0-5 SEEN, Ur Squamous Epith Cells 5-10 SEEN, Urine Bacteria 1+, Urine Mucus 0 SEEN 07/16/20 16:00: Magnesium 1.7 07/16/20 18:15: Lactic Acid 1.0 07/16/20 22:53: D-Dimer Quant (PE/DVT) 1.36 H* 07/17/20 07:00: WBC 2.4 L, RBC 4.95, Hgb 14.0, Hct 44.4, MCV 89.7, MCH 28.3, MCHC 31.5 L, RDW Std Deviation 43.3, RDW Coeff of Brittanie 13.1, Plt Count 171, MPV 10.7, Immature Gran % (Auto) 0.400, Neut % (Auto) 68.9, Lymph % (Auto) 24.6, [place] % (Auto) 6.1, Eos % (Auto) 0.0, Baso % (Auto) 0.0, Absolute Neuts (auto) 1.7 L, Absolute Lymphs (auto) 0.60 L, Nucleated RBC % 0, Differential Comment SCANNED 07/17/20 07:00: Sodium 143, Potassium 3.7, Chloride 113 H, Carbon Dioxide 22.0, Anion Gap 8, BUN 24 H, Creatinine 1.62 H, Estim Creat Clear Calc 29.90, Est GFR (MDRD) Af Amer 41 L, Est GFR (MDRD) Non-Af 34 L, BUN/Creatinine Ratio 14.8, Glucose 159 H, Calcium 7.8 L, Total Bilirubin 0.20, AST 34, ALT 27, Alkaline Phosphatase 63, Total Protein 6.3 L, Albumin 2.7 L, Globulin 3.6, Albumin/Globulin Ratio 0.8 L 07/17/20 07:00: Magnesium 1.9 Current Medications Acetaminophen (Acetaminophen 325 Mg Tablet) 650 mg PO Q6H PRN PRN PRN Reason: Pain Score 1-10/Temp > 100.7 F Last Admin: 07/17/20 10:07 Dose: 650 mg Documented by: Hydrocodone Bitart/Acetaminophen (Hydrocodone Bitartrate/Apap 5/325 Tablet) 1 tablet PO TID PRN PRN PRN Reason: Pain Score 1-10 Last Admin: 07/17/20 00:09 Dose: 1 tablet Documented by: Albuterol Sulfate (Albuterol Sulfate 8 Gm Inhaler (60 Puffs)) 2 puff INHALATION Q4H PRN PRN PRN Reason: SOB &/OR WHEEZING Azithromycin (Azithromycin 250 Mg Tablet) 500 mg PO Q24 [facility] Stop: 07/19/20 10:01 Dexamethasone (Dexamethasone 4 Mg Tablet) 6 mg PO DAILY@0800 [facility] Last Admin: 07/17/20 10:04 Dose: 6 mg Documented by: Enoxaparin Sodium (Enoxaparin 80 Mg/0.8 Ml Syringe) 80 mg SC DAILY [facility] Gabapentin (Gabapentin 400 Mg Capsule) 400 mg PO TIDCM [facility] Last Admin: 07/17/20 12:09 Dose: 400 mg Documented by: Potassium Chloride/Sodium Chloride () 1,000 mls @ 125 mls/hr IV .Q8H [facility] Last Infusion: 07/17/20 12:10 Dose: 125 mls/hr Documented by: Ceftriaxone Sodium (Rocephin) 1 gm in 50 mls @ 100 mls/hr IV Q24 [facility] Levothyroxine Sodium (Levothyroxine 25 Mcg Tablet) 25 mcg PO DAILY [facility] Last Admin: 07/17/20 10:05 Dose: 25 mcg Documented by: Loperamide HCl (Loperamide 2 Mg Capsule) 2 mg PO Q4H PRN PRN PRN Reason: DIARRHEA/LOOSE STOOLS Last Admin: 07/17/20 10:05 Dose: 2 mg Documented by: Melatonin (Melatonin 3 Mg Tablet) 3 mg PO QHS PRN PRN PRN Reason: INSOMNIA Ondansetron HCl (Ondansetron 4 Mg/2 Ml Vial) 4 mg IV Q8H PRN PRN PRN Reason: NAUSEA/VOMITING Pantoprazole Sodium (Pantoprazole Sodium 40 Mg Tablet) 40 mg PO BID [facility] Last Admin: 07/17/20 10:05 Dose: 40 mg Documented by: Potassium Chloride (Potassium Ch[facility]ide 20 Meq [facility]t) [facility] Last Admin: 07/17/20 10:05 Dose: 40 meq Documented by: Sodium Chloride (0.9% Saline Lock 10 Ml Syringe) 10 - 40 ml IV UD PRN PRN Reason: SALINE FLUSH STROKE Vital Signs/Narrative: Vital Signs Temp Pulse Resp BP Pulse Ox 07/17/20 15:24 46 L 07/17/20 15:00 98.2 F 44 L 18 98/54 L 94 07/17/20 13:04 98 F 48 L 18 94/50 L 94 Medical Necessity - Tobacco Use Smoking Status: Former smoker Tobacco Use: Cigarettes Assessment/Plan All Active Problems (Last Reviewed 07/16/20 @ 23:[address] Richard Gaona MD) COVID-19 (Acute) Hypoxia (Acute) Hypokalemia (Acute) Respiratory insufficiency (Acute) 1. Acute hypoxic respiratory insufficiency secondary to acute COVID-19 infection Patient is currently on 4 L of oxygen Continue with breathing treatments, po steroids, encourage use of incentive spirometer. Wean off oxygen for SPO2 more than 94% 2. Hypotension, unclear etiology, possibly secondary to dehydration from diarrhea Patient on IV fluids, would also check troponins Continue to monitor on IV fluids If hypotension is persistent, will consult cardiology and get 2D echo 3. Bradycardia, unclear etiology. Patient is not on beta-blockers or calcium channel blockers She is asymptomatic. Will check TSH 4. Acute COVID-19 infection, with hypoxia Chest x-ray showed no acute cardiopulmonary process D-dimer elevated; unable to do CTA and account of acute kidney injury We will continue on therapeutic Lovenox, Decadron, remdesivir ordered 5. Acute diarrhea likely secondary to COVID-19 infection Would also check enteric panel 6. Hypokalemia/hypomagnesemia secondary to diarrhea, replace, recheck in a.m. 7. JARRETT on CKD stage III, prerenal secondary to dehydration, improving Will trend BMP in a.m. 8. Hypertension, now hypotensive, home losartan on hold Continue to monitor 9. Hypothyroidism, continue on synthroid 10. DVT PPx- on therapeutic Lovenox [place] Inpatient E&M: 81731 Subs Hosp L3
[2020-07-17] MEDS: Ceftriaxone 1 GM/50 ML BAG IV (16:35)
[2020-07-17] MEDS: Enoxaparin 80 MG/0.8 ML Syringe SC (16:41)
[2020-07-17] MEDS: Azithromycin 250 MG Tablet 500 MG PO (16:42)
--- NOTE | 2020-07-17 16:49 | EKG12_ITS ---
Test Reason : RHYTHM Blood Pressure : / mmHG Vent. Rate : 042 BPM Atrial Rate : 042 BPM P-R Int : 244 ms QRS Dur : 074 ms QT Int : 484 ms P-R-T Axes : 053 -01 037 degrees QTc Int : 404 ms Marked sinus bradycardia with 1st degree A-V block Low voltage QRS Abnormal ECG Confirmed by IJEOMA ERNANDEZ, BARBARA ([id number]), newspaper copy editor KRISTEN VALENTIN ([id number]) on 07/21/2020 10:58:14 AM Referred By: ZARIA Confirmed By:BARBARA RAPHAEL MD
[2020-07-17 17:58] LABS: BNP,B-Type NATRIURETIC PEPTIDE 157.1 pg/mL (0-100)
[2020-07-17 19:39] LABS: Alkaline Phosphatase 63 U/L (45-117)
[2020-07-18] VITALS (18 sets, daily range): BP systolic 90–128; BP diastolic 42–65; PULSE 40–68; RESP 14–20; TEMP 36.9–39.6; O2SAT 85–96
[2020-07-18] MEDS: Azithromycin 250 MG Tablet 500 MG PO (08:36)
[2020-07-18] MEDS: Enoxaparin 80 MG/0.8 ML Syringe SC (08:36)
[2020-07-18] MEDS: Levothyroxine 25 MCG TABLET PO (08:37)
[2020-07-18] MEDS: dexAMETHasone 4 MG Tablet 6 MG PO (08:37)
[2020-07-18] MEDS: Pantoprazole Sodium 40 MG Tablet PO ×2 (08:37→21:25)
[2020-07-18] MEDS: Gabapentin 400 MG Capsule PO ×3 (08:37→17:47)
[2020-07-18] MEDS: Ceftriaxone 1 GM/50 ML BAG IV (08:38)
[2020-07-18] MEDS: Loperamide 2 MG Capsule PO (08:41)
[2020-07-18] MEDS: Acetaminophen 325 MG Tablet 650 MG PO (08:41)
[2020-07-18] MEDS: HYDROcodone Bitartrate/Apap 5/325 Tablet PO ×2 (08:41→17:50)
[2020-07-18 08:48] LABS: Hematocrit 40.1 % (37-47); Hemoglobin 13.1 g/dL (12.0-15.0); Mean Corp Hgb Conc 32.7 g/dL (32-36); Mean Corpuscular Hgb 28.5 pg (27.0-32.0); Mean Corpuscular Volume 87.4 fL (81-99); Mean Platelet Vol. 10.4 fl (6.2-12.0); Platelet Count 193 K/mm3 (150-450); RBC Distribution Width CV 13.5 % (11.6-14.6); RBC Distribution Width SD 43.4 fl (35.1-43.9); Red Blood Count 4.59 M/mm3 (4.2-5.4); White Blood Count 7.3 K/mm3 (4.4-11.0)
[2020-07-18] MEDS: Ondansetron 4 MG/2 ML Vial IV (08:56)
[2020-07-18 09:20] LABS: ALB/GLOB Ratio 0.7 RATIO (0.9-2.4); AST(SGOT) 40 U/L (15-37); Alanine Aminotransfer ALT/SGPT 24 U/L (13-56); Albumin, Serum 2.6 g/dL (3.2-5.0); Alkaline Phosphatase 60 U/L (45-117); Anion Gap 4 (5-15); BUN 24 mg/dL (7-18); Chloride 116 mmol/L (98-107); EST Glomerular Filtration Rate 34 mL/min (>60); Est Glom Filt Rate - Afr Amer 42 mL/min (>60); Estimated Creatinine Clearance 30.27 ml/min; Globulin 3.5 g/dL (2.2-4.2); Glucose 100 mg/dL (74-106); Potassium 3.8 mmol/L (3.5-5.1); Protein, Total 6.1 g/dL (6.4-8.2); Sodium Level 145 mmol/L (136-145)
--- NOTE | 2020-07-18 11:26 | PN_ITS ---
Patient Problems: Active and Suspected Problems (Last Reviewed 07/16/20 @ 23:[address] Richard Gaona MD) COVID-19 (Acute) Hypoxia (Acute) Hypokalemia (Acute) Respiratory insufficiency (Acute) Subjective: Patient subjectively feels much worse compared to yesterday. Patient states that she has had significant diarrhea with 4-5 bouts of diarrhea so far this morning. Patient denies any muscle cramping and feels her respiratory status is grossly unchanged. - Physical Exam Vitals/I&O's: Vital Signs Temp Pulse Resp BP Pulse Ox 39.1 C H 65 16 94/42 L 91 07/18/20 11:11 07/18/20 11:11 07/18/20 11:11 07/18/20 11:11 07/18/20 11:11 Oxygen Flow Rate (L/min) 5 Oxygen Delivery Method Nasal Cannula Weight: 80.739 kg Body Mass Index (BMI) 30.5 Intake and Output for Last 24 Hours 07/16/20 07/17/20 07/18/20 23:59 23:59 22:59 Intake Total 2340 / 2340 2775 / 3255 2715.83 / 2715.83 Output Total 800 / 800 Balance 2340 / 2340 2775 / 3255 1915.83 / 1915.83 General: Alert, Oriented x3, Cooperative, - - Appears ill HEENT: Atraumatic, PERRLA, EOMI, Normocephalic, - - Scleral injection without icterus Oral: No Gingival or Mucosal Lesions/ Ulcerations, Dry Mucosa Neck: Supple, No JVD, No Nodes, Trachea Midline Lungs: No rhonchi, No wheeze, No rales, Diminished, - - Symmetric expansion. No dullness to percussion. Cardiovascular: Regular rate, Regular Rhythm, Normal S1, Normal S2, No murmurs, No rub noted, No Gallop Abdomen: Bowel Sounds Present, Soft, Distended - Slightly, Tender - No guarding or rebound noted Extremities: No clubbing, No cyanosis, No edema, Capillary Refill Less than 3 Seconds Skin: No rashes, No breakdown Musculoskeletal: No Tenderness to Palpation of Joints or Extremities Lymphatic: No Cervical, Supraclavicular, or Inguinal Adenopathy Neurological: Cranial nerves II-XII grossly intact, Neuro grossly intact, Motor Exam 5/5 strength throughout Psych/Mental Status: Alert and oriented to time, place, person, mood and affect Laboratory Results 07/17/20 07:00: Alkaline Phosphatase 63, Troponin I < 0.015, TSH 0.40 07/17/20 07:00: B-Natriuretic Peptide 157.1 H 07/18/20 08:20: WBC 7.3, RBC 4.59, Hgb 13.1, Hct 40.1, MCV 87.4, MCH 28.5, MCHC 32.7, RDW Std Deviation 43.4, RDW Coeff of Brittanie 13.5, Plt Count 193, MPV 10.4 07/18/20 08:20: Sodium 145, Potassium 3.8, Chloride 116 H, Carbon Dioxide 25.0, Anion Gap 4 L, BUN 24 H, Creatinine 1.60 H, Estim Creat Clear Calc 30.27, Est GFR (MDRD) Af Amer 42 L, Est GFR (MDRD) Non-Af 34 L, BUN/Creatinine Ratio 15.0, Glucose 100, Calcium 8.0 L, Total Bilirubin 0.20, AST 40 H, ALT 24, Alkaline Phosphatase 60, Total Protein 6.1 L, Albumin 2.6 L, Globulin 3.5, Albumin/Globulin Ratio 0.7 L Current Medications Acetaminophen (Acetaminophen 325 Mg Tablet) 650 mg PO Q6H PRN PRN PRN Reason: Pain Score 1-10/Temp > 100.7 F Last Admin: 07/18/20 08:41 Dose: 325 mg Documented by: Hydrocodone Bitart/Acetaminophen (Hydrocodone Bitartrate/Apap 5/325 Tablet) 1 tablet PO TID PRN PRN PRN Reason: Pain Score 1-10 Last Admin: 07/18/20 08:41 Dose: 1 tablet Documented by: Albuterol Sulfate (Albuterol Sulfate 8 Gm Inhaler (60 Puffs)) 2 puff INHALATION Q4H PRN PRN PRN Reason: SOB &/OR WHEEZING Azithromycin (Azithromycin 250 Mg Tablet) 500 mg PO Q24 COUNT INCLUDES THE [facility] Stop: 07/19/20 10:01 Last Admin: 07/18/20 08:36 Dose: 500 mg Documented by: Calamine/Phenol (Menthol/Lanolin/Calamine/Znox 113 Gm Tube) 1 applic TOPICAL TID COUNT INCLUDES THE [facility]; Protocol Dexamethasone (Dexamethasone 4 Mg Tablet) 6 mg PO DAILY@0800 COUNT INCLUDES THE [facility] Last Admin: 07/18/20 08:37 Dose: 6 mg Documented by: Enoxaparin Sodium (Enoxaparin 80 Mg/0.8 Ml Syringe) 80 mg SC DAILY COUNT INCLUDES THE [facility] Last Admin: 07/18/20 08:36 Dose: 80 mg Documented by: Gabapentin (Gabapentin 400 Mg Capsule) 400 mg PO TIDCM COUNT INCLUDES THE [facility] Last Admin: 07/18/20 08:37 Dose: 400 mg Documented by: Potassium Chloride/Sodium Chloride () 1,000 mls @ 125 mls/hr IV .Q8H COUNT INCLUDES THE [facility] Last Admin: 07/18/20 11:24 Dose: 125 mls/hr Documented by: Ceftriaxone Sodium (Rocephin) 1 gm in 50 mls @ 100 mls/hr IV Q24 COUNT INCLUDES THE [facility] Last Infusion: 07/18/20 09:13 Dose: Infused Documented by: Remdesivir 100 mg/ Sodium (Chloride) 250 mls @ 125 mls/hr IV DAILY COUNT INCLUDES THE [facility]; Protocol Stop: 07/21/20 11:59 Last Admin: 07/18/20 11:19 Dose: 125 mls/hr Documented by: Levothyroxine Sodium (Levothyroxine 25 Mcg Tablet) 25 mcg PO DAILY COUNT INCLUDES THE [facility] Last Admin: 07/18/20 08:37 Dose: 25 mcg Documented by: Loperamide HCl (Loperamide 2 Mg Capsule) 2 mg PO Q4H PRN PRN PRN Reason: DIARRHEA/LOOSE STOOLS Last Admin: 07/18/20 08:41 Dose: 2 mg Documented by: Melatonin (Melatonin 3 Mg Tablet) 3 mg PO QHS PRN PRN PRN Reason: INSOMNIA Ondansetron HCl (Ondansetron 4 Mg/2 Ml Vial) 4 mg IV Q8H PRN PRN PRN Reason: NAUSEA/VOMITING Last Admin: 07/18/20 08:56 Dose: 4 mg Documented by: Pantoprazole Sodium (Pantoprazole Sodium 40 Mg Tablet) 40 mg PO BID COUNT INCLUDES THE [facility] Last Admin: 07/18/20 08:37 Dose: 40 mg Documented by: Potassium Chloride (Potassium Ch[facility]ide 20 Meq Tablet) [facility] Last Admin: 07/18/20 08:37 Dose: 40 meq Documented by: Sodium Chloride (0.9% Saline Lock 10 Ml Syringe) 10 - 40 ml IV UD PRN PRN Reason: SALINE FLUSH Medical Necessity - Tobacco Use Smoking Status: Former smoker Tobacco Use: Cigarettes Assessment/Plan All Active Problems (Last Reviewed 07/16/20 @ 23:[address] Richard Gaona MD) COVID-19 (Acute) Hypoxia (Acute) Hypokalemia (Acute) Respiratory insufficiency (Acute) RECOMMENDATIONS: 1. Initiate empiric antibiotics pending culture data 2. Continue with remdesivir, Decadron and Lovenox 3. May require IV hydration to compensate for diarrhea 4. Aggressive electrolyte repletion 5. Walking oximetry prior to discharge IMPRESSIONS: 1. Acute hypoxic respiratory insufficiency secondary to COVID-19 Clear patient has a baseline of COPD. No PFTs are available for review. Chest x-ray was relatively unimpressive. Patient reportedly is on day 7-10 of symptoms. Patient does appear to have predominantly GI manifestations at this time. Continue Decadron and remdesivir therapy. Patient's hypoxia does not appear to be extreme, but may need to compensate for bowel losses with electrolytes and fluids. 2. Hypotension Unclear etiology. Patient may have sepsis leading to current presentation. Patient did have diarrhea, but otherwise has no etiology of volume loss. Patient did receive 2 L, but remains bradycardic, not tachycardic as well would be expected with hypovolemic hypotension. Placed patient on empiric antibiotics pending culture data. Patient may require an echocardiogram for evaluation of cardiomyopathy, but defer to primary service. Baseline antihypertensives on hold. 3. Hypokalemia/acute kidney injury/advanced age Complicates care, management, recovery and prognosis. Patient responded well to supplementation of potassium. Baseline creatinine appears to be 1.02 and did improve with fluid resuscitation. Okay to continue with IV fluids from my perspective despite slightly elevated BNP. Inpatient E&M: 23428 Subs Hosp L3
[2020-07-18] MEDS: Menthol/Lanolin/Calamine/Znox 113 GM Tube 1 APPLIC TOPICAL ×2 (12:43→21:34)
--- NOTE | 2020-07-18 17:16 | PCM.PN.HOSP ---
Patient Problems: Active and Suspected Problems (Last Reviewed 07/16/20 @ 23:[address] Richard Gaona MD) COVID-19 (Acute) Hypoxia (Acute) Hypokalemia (Acute) Respiratory insufficiency (Acute) Reason for Visit: Follow-up up on hypoxia/COVID-19 infection Subjective: Patient was seen and examined. She has been spiking fevers. T-Max is 103.2. Blood cultures from admission are pending. Denied any dizziness or palpitations. Blood pressures relatedly low. Objective: Physical exam: General: Alert, Oriented x3, Cooperative, No apparent distress, - - on 6L oxygen HEENT: Atraumatic, PERRLA, EOMI, Normocephalic Oral: Moist Mucosa Neck: Supple Lungs: Diminished Cardiovascular: Regular rate, Regular Rhythm, Normal S1, Normal S2, No murmurs Abdomen: Bowel Sounds Present, Soft, Non Tender, Non-Distended, No Hepato-splenomegaly Extremities: No edema Skin: No rashes Musculoskeletal: No Tenderness to Palpation of Joints or Extremities Lymphatic: No Cervical, Supraclavicular, or Inguinal Adenopathy Neurological: Cranial nerves II-XII grossly intact, Neuro grossly intact Psych/Mental Status: Normal Affect, Appropriate Vitals/I&O's: Vital Signs Temp Pulse Resp BP Pulse Ox 99.1 F 52 L 14 108/51 L 93 07/18/20 15:58 07/18/20 15:58 07/18/20 15:58 07/18/20 15:58 07/18/20 15:58 Oxygen Flow Rate (L/min) 6 Oxygen Delivery Method Nasal Cannula Weight: 80.739 kg Body Mass Index (BMI) 30.5 Intake and Output for Last 24 Hours 07/16/20 07/17/20 07/18/20 23:59 23:59 22:59 Intake Total 2340 / 2340 2775 / 3255 3086.66 / 3086.66 Output Total 1100 / 1100 Balance 2340 / 2340 2775 / 3255 1985.66 / 1986.66 Laboratory Results 07/17/20 07:00: Alkaline Phosphatase 63, Troponin I < 0.015, TSH 0.40 07/18/20 08:20: WBC 7.3, RBC 4.59, Hgb 13.1, Hct 40.1, MCV 87.4, MCH 28.5, MCHC 32.7, RDW Std Deviation 43.4, RDW Coeff of Brittanie 13.5, Plt Count 193, MPV 10.4 07/18/20 08:20: Sodium 145, Potassium 3.8, Chloride 116 H, Carbon Dioxide 25.0, Anion Gap 4 L, BUN 24 H, Creatinine 1.60 H, Estim Creat Clear Calc 30.27, Est GFR (MDRD) Af Amer 42 L, Est GFR (MDRD) Non-Af 34 L, BUN/Creatinine Ratio 15.0, Glucose 100, Calcium 8.0 L, Total Bilirubin 0.20, AST 40 H, ALT 24, Alkaline Phosphatase 60, Total Protein 6.1 L, Albumin 2.6 L, Globulin 3.5, Albumin/Globulin Ratio 0.7 L Current Medications Acetaminophen (Acetaminophen 325 Mg Tablet) 650 mg PO Q6H PRN PRN PRN Reason: Pain Score 1-10/Temp > 100.7 F Last Admin: 07/18/20 08:41 Dose: 325 mg Documented by: Hydrocodone Bitart/Acetaminophen (Hydrocodone Bitartrate/Apap 5/325 Tablet) 1 tablet PO TID PRN PRN PRN Reason: Pain Score 1-10 Last Admin: 07/18/20 08:41 Dose: 1 tablet Documented by: Albuterol Sulfate (Albuterol Sulfate 8 Gm Inhaler (60 Puffs)) 2 puff INHALATION Q4H PRN PRN PRN Reason: SOB &/OR WHEEZING Azithromycin (Azithromycin 250 Mg Tablet) 500 mg PO Q24 [facility] Stop: 07/19/20 10:01 Last Admin: 07/18/20 08:36 Dose: 500 mg Documented by: Calamine/Phenol (Menthol/Lanolin/Calamine/Znox 113 Gm Tube) 1 applic TOPICAL TID [facility]; Protocol Last Admin: 07/18/20 12:43 Dose: 1 applicatio Documented by: Dexamethasone (Dexamethasone 4 Mg Tablet) 6 mg PO DAILY@0800 [facility] Last Admin: 07/18/20 08:37 Dose: 6 mg Documented by: Enoxaparin Sodium (Enoxaparin 80 Mg/0.8 Ml Syringe) 80 mg SC DAILY [facility] Last Admin: 07/18/20 08:36 Dose: 80 mg Documented by: Gabapentin (Gabapentin 400 Mg Capsule) 400 mg PO TIDCM [facility] Last Admin: 07/18/20 12:43 Dose: 400 mg Documented by: Potassium Chloride/Sodium Chloride () 1,000 mls @ 125 mls/hr IV .Q8H [facility] Last Infusion: 07/18/20 13:17 Dose: 125 mls/hr Documented by: Ceftriaxone Sodium (Rocephin) 1 gm in 50 mls @ 100 mls/hr IV Q24 [facility] Last Infusion: 07/18/20 09:13 Dose: Infused Documented by: Remdesivir 100 mg/ Sodium (Chloride) 250 mls @ 125 mls/hr IV DAILY [facility]; Protocol Stop: 07/21/20 11:59 Last Infusion: 07/18/20 13:17 Dose: Infused Documented by: Levothyroxine Sodium (Levothyroxine 25 Mcg Tablet) 25 mcg PO DAILY [facility] Last Admin: 07/18/20 08:37 Dose: 25 mcg Documented by: Loperamide HCl (Loperamide 2 Mg Capsule) 2 mg PO Q4H PRN PRN PRN Reason: DIARRHEA/LOOSE STOOLS Last Admin: 07/18/20 08:41 Dose: 2 mg Documented by: Melatonin (Melatonin 3 Mg Tablet) 3 mg PO QHS PRN PRN PRN Reason: INSOMNIA Ondansetron HCl (Ondansetron 4 Mg/2 Ml Vial) 4 mg IV Q8H PRN PRN PRN Reason: NAUSEA/VOMITING Last Admin: 07/18/20 08:56 Dose: 4 mg Documented by: Pantoprazole Sodium (Pantoprazole Sodium 40 Mg Tablet) 40 mg PO BID [facility] Last Admin: 07/18/20 08:37 Dose: 40 mg Documented by: Potassium Chloride (Potassium Chloride 20 Meq Tablet) 40 meq PO DAILYCM [facility] Last Admin: 07/18/20 08:37 Dose: 40 meq Documented by: Sodium Chloride (0.9% Saline Lock 10 Ml Syringe) 10 - 40 ml IV UD PRN PRN Reason: SALINE FLUSH STROKE Vital Signs/Narrative: Vital Signs Temp Pulse Resp BP Pulse Ox 07/18/20 15:58 99.1 F 52 L 14 108/51 L 93 07/18/20 15:00 40 L 07/18/20 14:01 99.4 F H 52 L 16 93/52 L 93 Medical Necessity - Tobacco Use Smoking Status: Former smoker Tobacco Use: Cigarettes Assessment/Plan All Active Problems (Last Reviewed 07/16/20 @ 23:[address] Richard Gaona MD) COVID-19 (Acute) Hypoxia (Acute) Hypokalemia (Acute) Respiratory insufficiency (Acute) 1. Acute hypoxic respiratory insufficiency secondary to acute COVID-19 infection, worsening Patient is currently on 6 L of oxygen Continue with breathing treatments, po steroids, encourage use of incentive spirometer. Wean off oxygen for SPO2 more than 94% 2. Hypotension, unclear etiology, possibly secondary to dehydration from diarrhea Patient on IV fluids, troponin negative. EKG without no acute ST-T changes. Continue to monitor on IV fluids If hypotension is persistent, will consult cardiology and get 2D echo 3. Bradycardia, unclear etiology. Patient is not on beta-blockers or calcium channel blockers She is asymptomatic. TSH is 0.40 4. Acute COVID-19 infection, with hypoxia Chest x-ray showed no acute cardiopulmonary process D-dimer elevated; unable to do CTA and account of acute kidney injury On therapeutic Lovenox, Decadron, remdesivir ordered 5. Acute diarrhea likely secondary to COVID-19 infection, persistent Enteric panel is pending 6. Hypokalemia/hypomagnesemia secondary to diarrhea, replace, recheck in a.m. 7. JARRETT on CKD stage III, prerenal secondary to dehydration, improving Will trend BMP in a.m. 8. Hypertension, now hypotensive, home losartan on hold Continue to monitor 9. Hypothyroidism, continue on synthroid 10. DVT PPx- on therapeutic Lovenox SC Inpatient E&M: 38786 Subs Hosp L2
[2020-07-19] VITALS (23 sets, daily range): BP systolic 104–133; BP diastolic 56–76; PULSE 40–143; RESP 12–32; TEMP 36.7–37.4; O2SAT 84–95
[2020-07-19] MEDS: HYDROcodone Bitartrate/Apap 5/325 Tablet PO ×3 (04:06→20:48)
[2020-07-19] MEDS: Menthol/Lanolin/Calamine/Znox 113 GM Tube 1 APPLIC TOPICAL ×2 (05:38→20:46)
--- NOTE | 2020-07-19 07:00 | CPS ---
Patient is currently on 15L high flow, without needing help of bipap
[2020-07-19 07:29] LABS: Absolute Lymphocyte Count 0.86 X10^3/uL (0.83-4.51); Absolute Neutrophil Count 5.2 X10^3/uL (2.0-7.7); Basophil# 0.01 X10^3/uL; Basophil% 0.2 % (0-1); Hematocrit 37.2 % (37-47); Lymphocyte # 0.86 X10^3/ul (4.0); Mean Corp Hgb Conc 32.3 g/dL (32-36); Mean Corpuscular Hgb 28.8 pg (27.0-32.0); Mean Corpuscular Volume 89.2 fL (81-99); Mean Platelet Vol. 10.7 fl (6.2-12.0); Monocyte# 0.54 X10^3/uL; Monocyte% 8.1 % (0-10); NRBC Flagged by Analyzer 0 % (0-5); Neutrophil # 5.19 X10^3/uL (2.7-7.7); Neutrophil % 78.2 % (47-70); Platelet Count 178 K/mm3 (150-450); RBC Distribution Width CV 14.3 % (11.6-14.6); RBC Distribution Width SD 46.2 fl (35.1-43.9); Red Blood Count 4.17 M/mm3 (4.2-5.4); White Blood Count 6.6 K/mm3 (4.4-11.0)
[2020-07-19 08:07] LABS: ALB/GLOB Ratio 0.7 RATIO (0.9-2.4); AST(SGOT) 34 U/L (15-37); Alanine Aminotransfer ALT/SGPT 20 U/L (13-56); Albumin, Serum 2.2 g/dL (3.2-5.0); Alkaline Phosphatase 50 U/L (45-117); Anion Gap 8 (5-15); BUN 22 mg/dL (7-18); BUN/Creat Ratio 19.1 RATIO (10-20); Calcium,Total 7.6 mg/dL (8.5-10.1); Chloride 115 mmol/L (98-107); Creatinine, Serum 1.15 mg/dL (0.55-1.02); EST Glomerular Filtration Rate 50 mL/min (>60); Est Glom Filt Rate - Afr Amer 61 mL/min (>60); Estimated Creatinine Clearance 42.12 ml/min; Globulin 3.1 g/dL (2.2-4.2); Glucose 112 mg/dL (74-106); Potassium 3.8 mmol/L (3.5-5.1); Protein, Total 5.3 g/dL (6.4-8.2); Sodium Level 143 mmol/L (136-145)
[2020-07-19] MEDS: dexAMETHasone 4 MG Tablet 6 MG PO (08:50)
[2020-07-19] MEDS: Gabapentin 400 MG Capsule PO ×3 (08:51→17:41)
[2020-07-19] MEDS: Enoxaparin 80 MG/0.8 ML Syringe SC (08:51)
[2020-07-19] MEDS: Pantoprazole Sodium 40 MG Tablet PO ×2 (08:52→20:46)
[2020-07-19] MEDS: Loperamide 2 MG Capsule PO ×2 (08:52→13:19)
[2020-07-19] MEDS: Azithromycin 250 MG Tablet 500 MG PO (09:50)
[2020-07-19] MEDS: Ceftriaxone 1 GM/50 ML BAG IV (09:50)
[2020-07-19] MEDS: Levothyroxine 25 MCG TABLET PO (11:09)
[2020-07-19] MEDS: Ondansetron 4 MG/2 ML Vial IV (13:19)
--- NOTE | 2020-07-19 15:32 | PCM.PN.PUL ---
Patient Problems: Active and Suspected Problems (Last Reviewed 07/16/20 @ 23:[address] Richard Gaona MD) COVID-19 (Acute) Hypoxia (Acute) Hypokalemia (Acute) Respiratory insufficiency (Acute) Subjective: The patient was seen and examined at the bedside this morning. Events from the last 24 hours have been reviewed. The patient is currently afebrile, hemodynamically stable and maintaining appropriate oxygen saturations on 15 L/min via nasal cannula. Objective: The patient's most recent lab work, culture data and imaging studies have all been personally reviewed. Coronavirus PCR was positive on July 14. Blood cultures are pending. - Physical Exam Vitals/I&O's: Vital Signs Temp Pulse Resp BP Pulse Ox 98.9 F 49 L 32 H 106/62 89 07/19/20 14:00 07/19/20 14:00 07/19/20 14:00 07/19/20 14:00 07/19/20 14:00 Oxygen Flow Rate (L/min) 15 Oxygen Delivery Method Nasal Cannula Weight: 177 lb 15.984 oz Body Mass Index (BMI) 30.5 Intake and Output for Last 24 Hours 07/18/20 07/18/20 07/19/20 00:59 23:59 23:59 Intake Total 2328.0 / 2328.0 Output Total 1350 / 1350 Balance 978.0 / 978.0 General: Alert, Cooperative HEENT: Atraumatic, Normocephalic Oral: No Gingival or Mucosal Lesions/ Ulcerations Neck: Supple, No Nodes, Trachea Midline Lungs: Diminished Cardiovascular: Regular rate, Regular Rhythm Abdomen: Bowel Sounds Present, Soft, Non Tender Extremities: No clubbing, No cyanosis Skin: No breakdown Musculoskeletal: No Tenderness to Palpation of Joints or Extremities Lymphatic: No Cervical, Supraclavicular, or Inguinal Adenopathy Neurological: Cranial nerves II-XII grossly intact, Neuro grossly intact Psych/Mental Status: Normal Affect, Appropriate Labs (Last 48 Hours) 07/17/20 07/17/20 07/18/20 07:00 07:00 08:20 WBC 7.3 RBC 4.59 Hgb 13.1 Hct 40.1 MCV 87.4 MCH 28.5 MCHC 32.7 RDW Std Deviation 43.4 RDW Coeff of Brittanie 13.5 Plt Count 193 MPV 10.4 Immature Gran % (Auto) Neut % (Auto) Lymph % (Auto) [place] % (Auto) Eos % (Auto) Baso % (Auto) Absolute Neuts (auto) Absolute Lymphs (auto) Nucleated RBC % Sodium Potassium Chloride Carbon Dioxide Anion Gap BUN Creatinine Estim Creat Clear Calc Est GFR (MDRD) Af Amer Est GFR (MDRD) Non-Af BUN/Creatinine Ratio Glucose Calcium Total Bilirubin AST ALT Alkaline Phosphatase 63 Troponin I < 0.015 B-Natriuretic Peptide 157.1 H Total Protein Albumin Globulin Albumin/Globulin Ratio TSH 0.40 Blood Type 07/18/20 07/19/20 07/19/20 08:20 07:18 07:18 WBC 6.6 RBC 4.17 L Hgb 12.0 Hct 37.2 MCV 89.2 MCH 28.8 MCHC 32.3 RDW Std Deviation 46.2 H RDW Coeff of Brittanie 14.3 Plt Count 178 MPV 10.7 Immature Gran % (Auto) 0.500 Neut % (Auto) 78.2 H Lymph % (Auto) 13.0 L [place] % (Auto) 8.1 Eos % (Auto) 0.0 Baso % (Auto) 0.2 Absolute Neuts (auto) 5.2 Absolute Lymphs (auto) 0.86 Nucleated RBC % 0 Sodium 145 143 Potassium 3.8 3.8 Chloride 116 H 115 H Carbon Dioxide 25.0 20.0 L Anion Gap 4 L 8 BUN 24 H 22 H Creatinine 1.60 H 1.15 H Estim Creat Clear Calc 30.27 42.12 Est GFR (MDRD) Af Amer 42 L 61 Est GFR (MDRD) Non-Af 34 L 50 L BUN/Creatinine Ratio 15.0 19.1 Glucose 100 112 H Calcium 8.0 L 7.6 L Total Bilirubin 0.20 0.20 AST 40 H 34 ALT 24 20 Alkaline Phosphatase 60 50 Troponin I B-Natriuretic Peptide Total Protein 6.1 L 5.3 L Albumin 2.6 L 2.2 L Globulin 3.5 3.1 Albumin/Globulin Ratio 0.7 L 0.7 L TSH Blood Type 07/19/20 14:40 WBC RBC Hgb Hct MCV MCH MCHC RDW Std Deviation RDW Coeff of Brittanie Plt Count MPV Immature Gran % (Auto) Neut % (Auto) Lymph % (Auto) [place] % (Auto) Eos % (Auto) Baso % (Auto) Absolute Neuts (auto) Absolute Lymphs (auto) Nucleated RBC % Sodium Potassium Chloride Carbon Dioxide Anion Gap BUN Creatinine Estim Creat Clear Calc Est GFR (MDRD) Af Amer Est GFR (MDRD) Non-Af BUN/Creatinine Ratio Glucose Calcium Total Bilirubin AST ALT Alkaline Phosphatase Troponin I B-Natriuretic Peptide Total Protein Albumin Globulin Albumin/Globulin Ratio TSH Blood Type Pending Microbiology 07/19/20 Unknown Stool Enteric Bacteriology - Final Clinical Impression(s) from Imaging Studies Chest X-Ray 07/16/20 15:58 IMPRESSION: Normal x-ray examination of the chest. Electronically Signed: Eddie Rivera DO at 16:09 EDT Tel [phone], Service support , Current Medications Acetaminophen (Acetaminophen 325 Mg Tablet) 650 mg PO Q6H PRN PRN PRN Reason: Pain Score 1-10/Temp > 100.7 F Last Admin: 07/18/20 08:41 Dose: 325 mg Documented by: Hydrocodone Bitart/Acetaminophen (Hydrocodone Bitartrate/Apap 5/325 Tablet) 1 tablet PO TID PRN PRN PRN Reason: Pain Score 1-10 Last Admin: 07/19/20 11:09 Dose: 1 tablet Documented by: Albuterol Sulfate (Albuterol Sulfate 8 Gm Inhaler (60 Puffs)) 2 puff INHALATION Q4H PRN PRN PRN Reason: SOB &/OR WHEEZING Calamine/Phenol (Menthol/Lanolin/Calamine/Znox 113 Gm Tube) 1 applic TOPICAL TID [facility]; Protocol Last Admin: 07/19/20 13:46 Dose: Not Given Documented by: Dexamethasone (Dexamethasone 4 Mg Tablet) 6 mg PO DAILY@0800 [facility] Last Admin: 07/19/20 08:50 Dose: 6 mg Documented by: Enoxaparin Sodium (Enoxaparin 80 Mg/0.8 Ml Syringe) 80 mg SC DAILY [facility] Last Admin: 07/19/20 08:51 Dose: 80 mg Documented by: Gabapentin (Gabapentin 400 Mg Capsule) 400 mg PO TIDCM [facility] Last Admin: 07/19/20 11:10 Dose: 400 mg Documented by: Remdesivir 100 mg/ Sodium (Chloride) 250 mls @ 125 mls/hr IV DAILY [facility]; Protocol Stop: 07/21/20 11:59 Last Infusion: 07/19/20 14:12 Dose: Infused Documented by: Potassium Chloride/Sodium Chloride () 1,000 mls @ 60 mls/hr IV .[id number] [facility] Last Admin: 07/19/20 11:38 Dose: 60 mls/hr Documented by: Levothyroxine Sodium (Levothyroxine 25 Mcg Tablet) 25 mcg PO DAILY [facility] Last Admin: 07/19/20 11:09 Dose: 25 mcg Documented by: Loperamide HCl (Loperamide 2 Mg Capsule) 2 mg PO Q4H PRN PRN PRN Reason: DIARRHEA/LOOSE STOOLS Last Admin: 07/19/20 13:19 Dose: 2 mg Documented by: Melatonin (Melatonin 3 Mg Tablet) 3 mg PO QHS PRN PRN PRN Reason: INSOMNIA Ondansetron HCl (Ondansetron 4 Mg/2 Ml Vial) 4 mg IV Q8H PRN PRN PRN Reason: NAUSEA/VOMITING Last Admin: 07/19/20 13:19 Dose: 4 mg Documented by: Pantoprazole Sodium (Pantoprazole Sodium 40 Mg Tablet) 40 mg PO BID [facility] Last Admin: 07/19/20 08:52 Dose: 40 mg Documented by: Potassium Chloride (Potassium Chloride 20 Meq Tablet) 40 meq PO DAILYCM [facility] Last Admin: 07/19/20 08:51 Dose: 40 meq Documented by: Sodium Chloride (0.9% Saline Lock 10 Ml Syringe) 10 - 40 ml IV UD PRN PRN Reason: SALINE FLUSH Medical Necessity - Tobacco Use Smoking Status: Former smoker Tobacco Use: Cigarettes Assessment/Plan All Active Problems (Last Reviewed 07/16/20 @ 23:[address] Richard Gaona MD) COVID-19 (Acute) Hypoxia (Acute) Hypokalemia (Acute) Respiratory insufficiency (Acute) RECOMMENDATIONS: 1. Wean supplemental oxygen to maintain saturations at or above 90%. 2. Continue Lovenox, Decadron and remdesivir. 3. Consider attempts at gentle diuresis. 4. Encourage incentive spirometer use and mobilize patient as tolerated. IMPRESSIONS: 1. Acute hypoxemic respiratory failure secondary to COVID-19 pneumonia The patient continues to be quite tenuous from a respiratory perspective with high supplemental oxygen requirement. Plan to continue Decadron and therapeutic Lovenox as ordered. Continue remdesivir as well. Wean supplemental oxygen to maintain saturations at or above 90%. Encourage incentive spirometer use and mobilize patient as tolerated. The patient may benefit from gentle diuresis as well. 2. Acute kidney injury/advanced age Complicates care, management, recovery and prognosis. Continue current supportive measures. This note was generated with [employer] dictation software. It may contain incorrect words, spelling, and punctuation that were not noted in checking the note before signing. Inpatient E&M: 14715 Subs Hosp L3
--- NOTE | 2020-07-19 15:53 | PCM.PN.HOSP ---
Patient Problems: Active and Suspected Problems (Last Reviewed 07/16/20 @ 23:[address] Richard Gaona MD) COVID-19 (Acute) Hypoxia (Acute) Hypokalemia (Acute) Respiratory insufficiency (Acute) Subjective: Patient seen and examined. She complains of feeling lethargic and short of breath. Review of systems otherwise negative. Vitals/I&O's: Vital Signs Temp Pulse Resp BP Pulse Ox 98.9 F 49 L 32 H 106/62 89 07/19/20 14:00 07/19/20 14:00 07/19/20 14:00 07/19/20 14:00 07/19/20 14:00 Oxygen Flow Rate (L/min) 15 Oxygen Delivery Method Nasal Cannula Weight: 177 lb 15.984 oz Body Mass Index (BMI) 30.5 Intake and Output for Last 24 Hours 07/18/20 07/18/20 07/19/20 00:59 23:59 23:59 Intake Total 2328.0 / 2328.0 Output Total 1350 / 1350 Balance 978.0 / 978.0 General: Alert, Oriented x3, Cooperative, Lethargic HEENT: Atraumatic, PERRLA, EOMI, Normocephalic Oral: Dry Mucosa Neck: Supple, No JVD, Negative Carotid Bruits Lungs: - - diminished breath sounds Cardiovascular: Normal S1, Normal S2, No murmurs, Bradycardic Abdomen: Bowel Sounds Present, Soft, Non Tender Extremities: No clubbing, No cyanosis, No edema, Capillary Refill Less than 3 Seconds Skin: No rashes, No breakdown Musculoskeletal: No Tenderness to Palpation of Joints or Extremities Lymphatic: No Cervical, Supraclavicular, or Inguinal Adenopathy Neurological: Cranial nerves II-XII grossly intact, Neuro grossly intact, Motor Exam 5/5 strength throughout Psych/Mental Status: Normal Affect, Appropriate, Alert and oriented to time, place, person, mood and affect Microbiology Past 72 Hours 07/16/20 18:25 Blood Culture (Wb) - Anticubital Left Blood Culture - Preliminary No growth in 48 hours. 07/16/20 18:15 Blood Culture (Wb) - Left Forearm Blood Culture - Preliminary No growth in 48 hours. 07/19/20 Unknown Stool Enteric Bacteriology - Final Laboratory Results 07/19/20 07:18: WBC 6.6, RBC 4.17 L, Hgb 12.0, Hct 37.2, MCV 89.2, MCH 28.8, MCHC 32.3, RDW Std Deviation 46.2 H, RDW Coeff of Brittanie 14.3, Plt Count 178, MPV 10.7, Immature Gran % (Auto) 0.500, Neut % (Auto) 78.2 H, Lymph % (Auto) 13.0 L, [place] % (Auto) 8.1, Eos % (Auto) 0.0, Baso % (Auto) 0.2, Absolute Neuts (auto) 5.2, Absolute Lymphs (auto) 0.86, Nucleated RBC % 0 07/19/20 07:18: Sodium 143, Potassium 3.8, Chloride 115 H, Carbon Dioxide 20.0 L, Anion Gap 8, BUN 22 H, Creatinine 1.15 H, Estim Creat Clear Calc 42.12, Est GFR (MDRD) Af Amer 61, Est GFR (MDRD) Non-Af 50 L, BUN/Creatinine Ratio 19.1, Glucose 112 H, Calcium 7.6 L, Total Bilirubin 0.20, AST 34, ALT 20, Alkaline Phosphatase 50, Total Protein 5.3 L, Albumin 2.2 L, Globulin 3.1, Albumin/Globulin Ratio 0.7 L 07/19/20 14:40: Blood Type Pending Diagnostic Data Chest X-Ray 07/16/20 15:58 IMPRESSION: Normal x-ray examination of the chest. Electronically Signed: Eddie Rivera DO at 16:09 EDT Tel [phone], Service support , Current Medications Acetaminophen (Acetaminophen 325 Mg Tablet) 650 mg PO Q6H PRN PRN PRN Reason: Pain Score 1-10/Temp > 100.7 F Last Admin: 07/18/20 08:41 Dose: 325 mg Documented by: Hydrocodone Bitart/Acetaminophen (Hydrocodone Bitartrate/Apap 5/325 Tablet) 1 tablet PO TID PRN PRN PRN Reason: Pain Score 1-10 Last Admin: 07/19/20 11:09 Dose: 1 tablet Documented by: Albuterol Sulfate (Albuterol Sulfate 8 Gm Inhaler (60 Puffs)) 2 puff INHALATION Q4H PRN PRN PRN Reason: SOB &/OR WHEEZING Calamine/Phenol (Menthol/Lanolin/Calamine/Znox 113 Gm Tube) 1 applic TOPICAL TID [facility]; Protocol Last Admin: 07/19/20 13:46 Dose: Not Given Documented by: Dexamethasone (Dexamethasone 4 Mg Tablet) 6 mg PO DAILY@0800 [facility] Last Admin: 07/19/20 08:50 Dose: 6 mg Documented by: Enoxaparin Sodium (Enoxaparin 80 Mg/0.8 Ml Syringe) 80 mg SC DAILY [facility] Last Admin: 07/19/20 08:51 Dose: 80 mg Documented by: Gabapentin (Gabapentin 400 Mg Capsule) 400 mg PO TIDCM [facility] Last Admin: 07/19/20 11:10 Dose: 400 mg Documented by: Remdesivir 100 mg/ Sodium (Chloride) 250 mls @ 125 mls/hr IV DAILY [facility]; Protocol Stop: 07/21/20 11:59 Last Infusion: 07/19/20 14:12 Dose: Infused Documented by: Potassium Chloride/Sodium Chloride () 1,000 mls @ 60 mls/hr IV .[id number] [facility] Last Admin: 07/19/20 11:38 Dose: 60 mls/hr Documented by: Levothyroxine Sodium (Levothyroxine 25 Mcg Tablet) 25 mcg PO DAILY [facility] Last Admin: 07/19/20 11:09 Dose: 25 mcg Documented by: Loperamide HCl (Loperamide 2 Mg Capsule) 2 mg PO Q4H PRN PRN PRN Reason: DIARRHEA/LOOSE STOOLS Last Admin: 07/19/20 13:19 Dose: 2 mg Documented by: Melatonin (Melatonin 3 Mg Tablet) 3 mg PO QHS PRN PRN PRN Reason: INSOMNIA Ondansetron HCl (Ondansetron 4 Mg/2 Ml Vial) 4 mg IV Q8H PRN PRN PRN Reason: NAUSEA/VOMITING Last Admin: 07/19/20 13:19 Dose: 4 mg Documented by: Pantoprazole Sodium (Pantoprazole Sodium 40 Mg Tablet) 40 mg PO BID [facility] Last Admin: 07/19/20 08:52 Dose: 40 mg Documented by: Potassium Chloride (Potassium Chloride 20 Meq Tablet) 40 meq PO DAILYCM [facility] Last Admin: 07/19/20 08:51 Dose: 40 meq Documented by: Sodium Chloride (0.9% Saline Lock 10 Ml Syringe) 10 - 40 ml IV UD PRN PRN Reason: SALINE FLUSH STROKE Vital Signs/Narrative: Vital Signs Temp Pulse Resp BP Pulse Ox 07/19/20 14:00 98.9 F 49 L 32 H 106/62 89 07/19/20 12:00 47 L Medical Necessity - Tobacco Use Smoking Status: Former smoker Tobacco Use: Cigarettes Assessment/Plan All Active Problems (Last Reviewed 07/16/20 @ 23:[address] Richard Gaona MD) COVID-19 (Acute) Hypoxia (Acute) Hypokalemia (Acute) Respiratory insufficiency (Acute) #Acute hypoxic respiratory failure due to COVID-19 pneumonia Now on 15 L of oxygen. IV dexamethasone. On breathing treatments with bronchodilators. On remdesivir. Encourage incentive spirometry use. Consult infectious disease. Pulmonology on board. Low threshold to transfer to ICU if shortness of breath worsens. #Bradycardia: TSH was 0.4. She is asymptomatic. Will get x-ray to further evaluate. #Acute COVID-19 infection: As under management for respiratory failure #Hypomagnesemia and hypokalemia: Resolved. #JARRETT on CKD stage III: Resolved creatinine is down to 1.15. #Hypertension: Losartan held on admission due to hypotension. Continue holding and monitor. #Hypothyroidism: On Synthroid DVT prophylaxis: Lovenox Inpatient E&M: 12256 [facility] Hosp L3
--- NOTE | 2020-07-19 18:46 | NURSING ---
cps called d/t pt getting fatigued and pox maintaining 82% on 15l.will come and start bipap. pt up to bsc again to void. moist cough obs. some scant blood noted to tissue.
--- NOTE | 2020-07-19 20:10 | PCM.HP.ID ---
Problem List (1) COVID-19 Status: Acute Reason for Consult: covid Consulted by: Dr. Mehta History of Present Illness: The patient is a 64 year old F presented with sx starting 07/10, c/o severe diarrhea, aches, headache, nausea, and mild cough/dyspnea. Came to ED, fever to 102.9, admitted on ceftriaxone and dex. Remdesivir started. at home not sick, has not been tested. Has been consistent with masking. Full ROS performed and neg except as noted above. - Medical History Surgical History: reviewed Allergies/Adverse Reactions: Allergies DAVID Inhibitors Allergy (Verified 07/16/20 15:04) Rash codeine Allergy (Verified 07/16/20 15:04) Vomiting walnut Allergy (Verified 07/16/20 15:04) Food Allergy Home Medications: Ambulatory Orders Medication Instructions Recorded Hydrocodone/Acetaminophen 1 tab PO TID PRN 11/03/17 [Hydrocodon-Acetaminophen 5-325] Levothyroxine [Synthroid] 25 mcg PO DAILY 11/03/17 Gabapentin [Neurontin] 400 mg PO TID 07/16/20 Hydrochlorothiazide [Hctz] 25 mg PO DAILY 07/16/20 Losartan Potassium [Cozaar] 100 mg PO DAILY 07/16/20 Omeprazole 40 mg PO BID 07/16/20 Potassium Citrate [Potassium 40 meq PO DAILY 07/16/20 Citrate ER] - Social History SMOKING STATUS:: Former smoker Vital Signs Temp Pulse Resp BP Pulse Ox 99.3 F H 47 L 31 H 118/68 95 07/19/20 18:00 07/19/20 19:19 07/19/20 19:19 07/19/20 18:00 07/19/20 19:19 Oxygen Flow Rate (L/min) 15 Oxygen Delivery Method Nasal Cannula Weight: 80.739 kg Body Mass Index (BMI) 30.5 Microbiology Past 72 Hours 07/16/20 18:25 Blood Culture - Preliminary Blood Culture (Wb) - Anticubital Left No growth in 48 hours. 07/16/20 18:15 Blood Culture - Preliminary Blood Culture (Wb) - Left Forearm No growth in 48 hours. 07/19/20 Unknown Enteric Bacteriology - Final Stool Laboratory Tests Past 24 Hrs 07/19/20 07/19/20 07/19/20 07:18 07:18 14:40 WBC 6.6 RBC 4.17 L Hgb 12.0 Hct 37.2 MCV 89.2 MCH 28.8 MCHC 32.3 RDW Std Deviation 46.2 H RDW Coeff of Brittanie 14.3 Plt Count 178 MPV 10.7 Immature Gran % (Auto) 0.500 Neut % (Auto) 78.2 H Lymph % (Auto) 13.0 L [place] % (Auto) 8.1 Eos % (Auto) 0.0 Baso % (Auto) 0.2 Absolute Neuts (auto) 5.2 Absolute Lymphs (auto) 0.86 Nucleated RBC % 0 Sodium 143 Potassium 3.8 Chloride 115 H Carbon Dioxide 20.0 L Anion Gap 8 BUN 22 H Creatinine 1.15 H Estim Creat Clear Calc 42.12 Est GFR (MDRD) Af Amer 61 Est GFR (MDRD) Non-Af 50 L BUN/Creatinine Ratio 19.1 Glucose 112 H Calcium 7.6 L Total Bilirubin 0.20 AST 34 ALT 20 Alkaline Phosphatase 50 Total Protein 5.3 L Albumin 2.2 L Globulin 3.1 Albumin/Globulin Ratio 0.7 L Blood Type O POSITIVE - Other Studies Radiology: [] reviewed Other Studies: [] Route of nutrition/ use of supplements: [] Nutritional Intake: [] IV Site: [] Gr Catheter: [] - Physical Exam General: Alert, Oriented x3, Cooperative HEENT: Atraumatic, PERRLA, EOMI Neck: Supple, No Nodes Lungs: Diminished Cardiovascular: Regular rate, Regular Rhythm Abdomen: Soft, Non Tender, Non-Distended Extremities: No edema Skin: No rashes IV Site: Peripheral, without redness Musculoskeletal: No Tenderness to Palpation of Joints or Extremities Neurological: Cranial nerves II-XII grossly intact - Assessment/Plan Antibiotics: [] Assessment/Plan: [] Active and Suspected Problems (Last Reviewed 07/16/20 @ 23:[address] Richard Gaona MD) COVID-19 (Acute) Hypoxia (Acute) Hypokalemia (Acute) Respiratory insufficiency (Acute) On dex, will stop ceftriaxone. On remdesivir. Reviewed EUA, discussed risks/benefits of plasma, she agrees, will order. On 15L. Will follow, thank you
[2020-07-19] MEDS: LORazepam 0.5 MG Tablet PO (23:03)
[2020-07-19] MEDS: 0.9% Saline Lock 10 ML Syringe IV (23:04)
[2020-07-20] VITALS (24 sets, daily range): BP systolic 115–149; BP diastolic 50–74; PULSE 36–55; RESP 12–34; TEMP 36.4–37.2; O2SAT 88–96
[2020-07-20] MEDS: 0.9% Saline Lock 10 ML Syringe IV ×2 (05:39→17:10)
[2020-07-20 07:41] LABS: Absolute Lymphocyte Count 0.71 X10^3/uL (0.83-4.51); Absolute Neutrophil Count 6.4 X10^3/uL (2.0-7.7); Basophil# 0.02 X10^3/uL; Basophil% 0.3 % (0-1); Hematocrit 38.1 % (37-47); Hemoglobin 12.2 g/dL (12.0-15.0); Lymphocyte # 0.71 X10^3/ul (4.0); Mean Corpuscular Hgb 28.7 pg (27.0-32.0); Mean Corpuscular Volume 89.6 fL (81-99); Mean Platelet Vol. 11.4 fl (6.2-12.0); Monocyte% 8.9 % (0-10); NRBC Flagged by Analyzer 0 % (0-5); Neutrophil # 6.39 X10^3/uL (2.7-7.7); Neutrophil % 81.2 % (47-70); Platelet Count 183 K/mm3 (150-450); RBC Distribution Width CV 14.2 % (11.6-14.6); RBC Distribution Width SD 46.3 fl (35.1-43.9); Red Blood Count 4.25 M/mm3 (4.2-5.4); White Blood Count 7.9 K/mm3 (4.4-11.0)
[2020-07-20 08:07] LABS: Anion Gap 8 (5-15); BUN 20 mg/dL (7-18); BUN/Creat Ratio 21.4 RATIO (10-20); Calcium,Total 7.8 mg/dL (8.5-10.1); Chloride 113 mmol/L (98-107); Creatinine, Serum 0.93 mg/dL (0.55-1.02); EST Glomerular Filtration Rate 64 mL/min (>60); Est Glom Filt Rate - Afr Amer 77 mL/min (>60); Estimated Creatinine Clearance 52.08 ml/min; Glucose 106 mg/dL (74-106); Sodium Level 143 mmol/L (136-145)
[2020-07-20] MEDS: HYDROcodone Bitartrate/Apap 5/325 Tablet PO ×2 (08:46→17:17)
[2020-07-20] MEDS: Gabapentin 400 MG Capsule PO ×3 (08:46→17:10)
[2020-07-20] MEDS: Levothyroxine 25 MCG TABLET PO (08:47)
[2020-07-20] MEDS: Pantoprazole Sodium 40 MG Tablet PO ×2 (08:47→21:06)
[2020-07-20] MEDS: dexAMETHasone 4 MG Tablet 6 MG PO (08:47)
[2020-07-20] MEDS: Enoxaparin 80 MG/0.8 ML Syringe SC (08:53)
[2020-07-20 10:33] LABS: AST(SGOT) 35 U/L (15-37); Alanine Aminotransfer ALT/SGPT 25 U/L (13-56); Albumin, Serum 2.3 g/dL (3.2-5.0); Alkaline Phosphatase 62 U/L (45-117); Bilirubin, Direct 0.07 mg/dL (0.00-0.30); Globulin 3.4 g/dL (2.2-4.2); Protein, Total 5.7 g/dL (6.4-8.2)
--- NOTE | 2020-07-20 11:08 | PN.ID_ITS ---
Patient Problems: Active and Suspected Problems (Last Reviewed 07/16/20 @ 23:[address] Richard Gaona MD) COVID-19 (Acute) Hypoxia (Acute) Hypokalemia (Acute) Respiratory insufficiency (Acute) Subjective: Not feeling much better, no nausea, no fever - Physical Exam Vitals/I&O's: Vital Signs Temp Pulse Resp BP Pulse Ox 98.9 F 54 L 22 H 136/61 H 94 07/20/20 09:00 07/20/20 09:00 07/20/20 09:00 07/20/20 09:00 07/20/20 09:00 Oxygen Flow Rate (L/min) 15 Oxygen Delivery Method Airvo Weight: 80.739 kg Body Mass Index (BMI) 30.5 Intake and Output for Last 24 Hours 07/18/20 07/19/20 07/20/20 23:59 23:59 23:59 Intake Total 3349.0 / 3409.0 553 / 553 Output Total 1750 / 1950 500 / 500 Balance 1599.0 / 1459.0 53 / 53 General: Cooperative, No apparent distress Lungs: Diminished Cardiovascular: Regular rate, Regular Rhythm Abdomen: Soft, Non Tender, Non-Distended Skin: No rashes Microbiology Past 72 Hours 07/16/20 18:25 Blood Culture (Wb) - Anticubital Left Blood Culture - Preliminary No growth in 48 hours. 07/16/20 18:15 Blood Culture (Wb) - Left Forearm Blood Culture - Preliminary No growth in 48 hours. 07/19/20 Unknown Stool Enteric Bacteriology - Final Laboratory Results 07/19/20 14:40: Blood Type O POSITIVE 07/20/20 06:55: WBC 7.9, RBC 4.25, Hgb 12.2, Hct 38.1, MCV 89.6, MCH 28.7, MCHC 32.0, RDW Std Deviation 46.3 H, RDW Coeff of Brittanie 14.2, Plt Count 183, MPV 11.4, Immature Gran % (Auto) 0.600, Neut % (Auto) 81.2 H, Lymph % (Auto) 9.0 L, [place] % (Auto) 8.9, Eos % (Auto) 0.0, Baso % (Auto) 0.3, Absolute Neuts (auto) 6.4, Absolute Lymphs (auto) 0.71 L, Nucleated RBC % 0 07/20/20 06:55: Sodium 143, Potassium 4.0, Chloride 113 H, Carbon Dioxide 22.0, Anion Gap 8, BUN 20 H, Creatinine 0.93, Estim Creat Clear Calc 52.08, Est GFR (MDRD) Af Amer 77, Est GFR (MDRD) Non-Af 64, BUN/Creatinine Ratio 21.4 H, Glucose 106, Calcium 7.8 L 07/20/20 06:55: Total Bilirubin 0.30, Direct Bilirubin 0.07, AST 35, ALT 25, Alkaline Phosphatase 62, Total Protein 5.7 L, Albumin 2.3 L, Globulin 3.4 Current Medications Acetaminophen (Acetaminophen 325 Mg Tablet) 650 mg PO Q6H PRN PRN PRN Reason: Pain Score 1-10/Temp > 100.7 F Last Admin: 07/18/20 08:41 Dose: 325 mg Documented by: Hydrocodone Bitart/Acetaminophen (Hydrocodone Bitartrate/Apap 5/325 Tablet) 1 tablet PO TID PRN PRN PRN Reason: Pain Score 1-10 Last Admin: 07/20/20 08:46 Dose: 1 tablet Documented by: Albuterol Sulfate (Albuterol Sulfate 8 Gm Inhaler (60 Puffs)) 2 puff INHALATION Q4H PRN PRN PRN Reason: SOB &/OR WHEEZING Calamine/Phenol (Menthol/Lanolin/Calamine/Znox 113 Gm Tube) 1 applic TOPICAL TID [facility]; Protocol Last Admin: 07/20/20 04:56 Dose: Not Given Documented by: Dexamethasone (Dexamethasone 4 Mg Tablet) 6 mg PO DAILY@0800 [facility] Last Admin: 07/20/20 08:47 Dose: 6 mg Documented by: Enoxaparin Sodium (Enoxaparin 80 Mg/0.8 Ml Syringe) 80 mg SC DAILY [facility] Last Admin: 07/20/20 08:53 Dose: 80 mg Documented by: Gabapentin (Gabapentin 400 Mg Capsule) 400 mg PO TIDCM [facility] Last Admin: 07/20/20 08:46 Dose: 400 mg Documented by: Remdesivir 100 mg/ Sodium (Chloride) 250 mls @ 125 mls/hr IV DAILY [facility]; Protocol Stop: 07/21/20 11:59 Last Admin: 07/20/20 10:40 Dose: 125 mls/hr Documented by: Potassium Chloride/Sodium Chloride () 1,000 mls @ 60 mls/hr IV .[id number] [facility] Last Infusion: 07/20/20 10:51 Dose: 0 mls/hr Documented by: Levothyroxine Sodium (Levothyroxine 25 Mcg Tablet) 25 mcg PO DAILY [facility] Last Admin: 07/20/20 08:47 Dose: 25 mcg Documented by: Loperamide HCl (Loperamide 2 Mg Capsule) 2 mg PO Q4H PRN PRN PRN Reason: DIARRHEA/LOOSE STOOLS Last Admin: 07/19/20 13:19 Dose: 2 mg Documented by: Melatonin (Melatonin 3 Mg Tablet) 3 mg PO QHS PRN PRN PRN Reason: INSOMNIA Ondansetron HCl (Ondansetron 4 Mg/2 Ml Vial) 4 mg IV Q8H PRN PRN PRN Reason: NAUSEA/VOMITING Last Admin: 07/19/20 13:19 Dose: 4 mg Documented by: Pantoprazole Sodium (Pantoprazole Sodium 40 Mg Tablet) 40 mg PO BID [facility] Last Admin: 07/20/20 08:47 Dose: 40 mg Documented by: Potassium Chloride (Potassium Chloride 20 Meq Tablet) 40 meq PO DAILYCM [facility] Last Admin: 07/20/20 08:46 Dose: 40 meq Documented by: Sodium Chloride (0.9% Saline Lock 10 Ml Syringe) 10 - 40 ml IV UD PRN PRN Reason: SALINE FLUSH Last Admin: 07/20/20 05:39 Dose: 10 ml Documented by: Medical Necessity - Tobacco Use Smoking Status: Former smoker Tobacco Use: Cigarettes Route of nutrition/ use of supplements: [] Nutritional Intake: [] IV Site: [] Gr Catheter: [] - Assessment/Plan Antibiotics: [] Assessment/Plan: [] Active and Suspected Problems (Last Reviewed 07/16/20 @ 23:[address] Richard Gaona MD) COVID-19 (Acute) Hypoxia (Acute) Hypokalemia (Acute) Respiratory insufficiency (Acute) On dex, remdesivir. Got plasma 07/19. On 75% O2 this AM. Will follow
--- NOTE | 2020-07-20 11:17 | PCM.PN.HOSP ---
Patient Problems: Active and Suspected Problems (Last Reviewed 07/16/20 @ 23:[address] Richard Gaona MD) COVID-19 (Acute) Hypoxia (Acute) Hypokalemia (Acute) Respiratory insufficiency (Acute) Subjective: Patient seen and examined. She still says she feels weak and tired. She is now on airVo. Review of systems otherwise negative. She has remained hemodynamically stable though she has been bradycardic with heart rate being 54 today. Vitals/I&O's: Vital Signs Temp Pulse Resp BP Pulse Ox 98.9 F 54 L 22 H 136/61 H 94 07/20/20 09:00 07/20/20 09:00 07/20/20 09:00 07/20/20 09:00 07/20/20 09:00 Oxygen Flow Rate (L/min) 15 Oxygen Delivery Method Airvo Weight: 177 lb 15.984 oz Body Mass Index (BMI) 30.5 Intake and Output for Last 24 Hours 07/18/20 07/19/20 07/20/20 23:59 23:59 23:59 Intake Total 3349.0 / 3409.0 553 / 553 Output Total 1750 / 1950 500 / 500 Balance 1599.0 / 1459.0 53 / 53 General: Alert, Oriented x3, Cooperative, Lethargic HEENT: Atraumatic, PERRLA, EOMI, Normocephalic Oral: Dry Mucosa Neck: Supple, No JVD, Negative Carotid Bruits Lungs: - - diminished breath sounds, on AirVO Cardiovascular: Normal S1, Normal S2, No murmurs, Bradycardic Abdomen: Bowel Sounds Present, Soft, Non Tender Extremities: No clubbing, No cyanosis, No edema, Capillary Refill Less than 3 Seconds Skin: No rashes, No breakdown Musculoskeletal: No Tenderness to Palpation of Joints or Extremities Lymphatic: No Cervical, Supraclavicular, or Inguinal Adenopathy Neurological: Cranial nerves II-XII grossly intact, Neuro grossly intact, Motor Exam 5/5 strength throughout Psych/Mental Status: Normal Affect, Appropriate, Alert and oriented to time, place, person, mood and affect Microbiology Past 72 Hours 07/16/20 18:25 Blood Culture (Wb) - Anticubital Left Blood Culture - Preliminary No growth in 48 hours. 07/16/20 18:15 Blood Culture (Wb) - Left Forearm Blood Culture - Preliminary No growth in 48 hours. 07/19/20 Unknown Stool Enteric Bacteriology - Final Laboratory Results 07/19/20 14:40: Blood Type O POSITIVE 07/20/20 06:55: WBC 7.9, RBC 4.25, Hgb 12.2, Hct 38.1, MCV 89.6, MCH 28.7, MCHC 32.0, RDW Std Deviation 46.3 H, RDW Coeff of Brittanie 14.2, Plt Count 183, MPV 11.4, Immature Gran % (Auto) 0.600, Neut % (Auto) 81.2 H, Lymph % (Auto) 9.0 L, [place] % (Auto) 8.9, Eos % (Auto) 0.0, Baso % (Auto) 0.3, Absolute Neuts (auto) 6.4, Absolute Lymphs (auto) 0.71 L, Nucleated RBC % 0 07/20/20 06:55: Sodium 143, Potassium 4.0, Chloride 113 H, Carbon Dioxide 22.0, Anion Gap 8, BUN 20 H, Creatinine 0.93, Estim Creat Clear Calc 52.08, Est GFR (MDRD) Af Amer 77, Est GFR (MDRD) Non-Af 64, BUN/Creatinine Ratio 21.4 H, Glucose 106, Calcium 7.8 L 07/20/20 06:55: Total Bilirubin 0.30, Direct Bilirubin 0.07, AST 35, ALT 25, Alkaline Phosphatase 62, Total Protein 5.7 L, Albumin 2.3 L, Globulin 3.4 Diagnostic Data Chest X-Ray 07/16/20 15:58 IMPRESSION: Normal x-ray examination of the chest. Electronically Signed: Eddie Rivera DO at 16:09 EDT Tel [phone], Service support , Current Medications Acetaminophen (Acetaminophen 325 Mg Tablet) 650 mg PO Q6H PRN PRN PRN Reason: Pain Score 1-10/Temp > 100.7 F Last Admin: 07/18/20 08:41 Dose: 325 mg Documented by: Hydrocodone Bitart/Acetaminophen (Hydrocodone Bitartrate/Apap 5/325 Tablet) 1 tablet PO TID PRN PRN PRN Reason: Pain Score 1-10 Last Admin: 07/20/20 08:46 Dose: 1 tablet Documented by: Albuterol Sulfate (Albuterol Sulfate 8 Gm Inhaler (60 Puffs)) 2 puff INHALATION Q4H PRN PRN PRN Reason: SOB &/OR WHEEZING Calamine/Phenol (Menthol/Lanolin/Calamine/Znox 113 Gm Tube) 1 applic TOPICAL TID [facility]; Protocol Last Admin: 07/20/20 04:56 Dose: Not Given Documented by: Dexamethasone (Dexamethasone 4 Mg Tablet) 6 mg PO DAILY@0800 [facility] Last Admin: 07/20/20 08:47 Dose: 6 mg Documented by: Enoxaparin Sodium (Enoxaparin 80 Mg/0.8 Ml Syringe) 80 mg SC DAILY [facility] Last Admin: 07/20/20 08:53 Dose: 80 mg Documented by: Gabapentin (Gabapentin 400 Mg Capsule) 400 mg PO TIDCM [facility] Last Admin: 07/20/20 08:46 Dose: 400 mg Documented by: Remdesivir 100 mg/ Sodium (Chloride) 250 mls @ 125 mls/hr IV DAILY [facility]; Protocol Stop: 07/21/20 11:59 Last Admin: 07/20/20 10:40 Dose: 125 mls/hr Documented by: Potassium Chloride/Sodium Chloride () 1,000 mls @ 60 mls/hr IV .[id number] [facility] Last Infusion: 07/20/20 10:51 Dose: 0 mls/hr Documented by: Levothyroxine Sodium (Levothyroxine 25 Mcg Tablet) 25 mcg PO DAILY [facility] Last Admin: 07/20/20 08:47 Dose: 25 mcg Documented by: Loperamide HCl (Loperamide 2 Mg Capsule) 2 mg PO Q4H PRN PRN PRN Reason: DIARRHEA/LOOSE STOOLS Last Admin: 07/19/20 13:19 Dose: 2 mg Documented by: Melatonin (Melatonin 3 Mg Tablet) 3 mg PO QHS PRN PRN PRN Reason: INSOMNIA Ondansetron HCl (Ondansetron 4 Mg/2 Ml Vial) 4 mg IV Q8H PRN PRN PRN Reason: NAUSEA/VOMITING Last Admin: 07/19/20 13:19 Dose: 4 mg Documented by: Pantoprazole Sodium (Pantoprazole Sodium 40 Mg Tablet) 40 mg PO BID [facility] Last Admin: 07/20/20 08:47 Dose: 40 mg Documented by: Potassium Chloride (Potassium Chloride 20 Meq Tablet) 40 meq PO DAILYCM [facility] Last Admin: 07/20/20 08:46 Dose: 40 meq Documented by: Sodium Chloride (0.9% Saline Lock 10 Ml Syringe) 10 - 40 ml IV UD PRN PRN Reason: SALINE FLUSH Last Admin: 07/20/20 05:39 Dose: 10 ml Documented by: STROKE Vital Signs/Narrative: Vital Signs Temp Pulse Resp BP Pulse Ox 07/20/20 09:00 98.9 F 54 L 22 H 136/61 H 94 07/20/20 08:00 99 F 48 L 24 H 145/70 H 91 07/20/20 07:30 50 L 22 H 90 Medical Necessity - Tobacco Use Smoking Status: Former smoker Tobacco Use: Cigarettes Assessment/Plan All Active Problems (Last Reviewed 07/16/20 @ 23:[address] Richard Gaona MD) COVID-19 (Acute) Hypoxia (Acute) Hypokalemia (Acute) Respiratory insufficiency (Acute) #Acute hypoxic respiratory failure due to COVID-19 pneumonia now on AirVO IV dexamethasone. On breathing treatments with bronchodilators. On remdesivir. Encourage incentive spirometry use. received convalescent plasma yesterday Consult infectious disease. Pulmonology on board. tittrate oxygen to maintain sats >90% #Bradycardia: TSH was 0.4. She is asymptomatic. #Acute COVID-19 infection: As under management for respiratory failure #Hypomagnesemia and hypokalemia: Resolved. #JARRETT on CKD stage III: Resolved #Hypertension: Losartan held on admission due to hypotension. Continue holding and monitor. #Hypothyroidism: On Synthroid DVT prophylaxis: Lovenox Inpatient E&M: 07974 [facility] Hosp L3
--- NOTE | 2020-07-20 13:43 | PN_ITS ---
Patient Problems: Active and Suspected Problems (Last Reviewed 07/16/20 @ 23:[address] Richard Gaona MD) COVID-19 (Acute) Hypoxia (Acute) Hypokalemia (Acute) Respiratory insufficiency (Acute) Subjective: The patient was seen and examined at the bedside this morning. Events from the last 24 hours have been reviewed. The patient is currently afebrile, hemodynamically stable and maintaining appropriate oxygen saturations on Airvo with an FiO2 requirement of 75%. The patient remains on remdesivir, Lovenox and Decadron. She is currently documented to be overall net +9 L for the hospital admission. Objective: The patient's most recent lab work, culture data and imaging studies have all been personally reviewed. Coronavirus PCR was positive on July 14. Blood cultures are pending. - Physical Exam Vitals/I&O's: Vital Signs Temp Pulse Resp BP Pulse Ox 98.8 F 55 L 20 H 115/50 L 95 07/20/20 12:00 07/20/20 12:26 07/20/20 12:26 07/20/20 12:00 07/20/20 12:26 Oxygen Flow Rate (L/min) 15 Oxygen Delivery Method Airvo Weight: 177 lb 15.984 oz Body Mass Index (BMI) 30.5 Intake and Output for Last 24 Hours 07/18/20 07/19/20 07/20/20 23:59 23:59 23:59 Intake Total 3349.0 / 3409.0 793 / 793 Output Total 1750 / 1950 800 / 800 Balance 1599.0 / 1459.0 -7 / -7 General: Alert, Cooperative, - - Fatigued in appearance HEENT: Atraumatic, Normocephalic Oral: No Gingival or Mucosal Lesions/ Ulcerations Neck: Supple, No Nodes, Trachea Midline Lungs: Diminished, Rales Cardiovascular: Normal S1, Normal S2, Bradycardic Abdomen: Bowel Sounds Present, Soft, Non Tender, Obese Extremities: No clubbing, No cyanosis Skin: No breakdown Musculoskeletal: No Tenderness to Palpation of Joints or Extremities Lymphatic: No Cervical, Supraclavicular, or Inguinal Adenopathy Neurological: Neuro grossly intact Psych/Mental Status: Normal Affect, Appropriate Labs (Last 48 Hours) 11/02/20 11/02/20 11/02/20 07:18 07:18 14:40 WBC 6.6 RBC 4.17 L Hgb 12.0 Hct 37.2 MCV 89.2 MCH 28.8 MCHC 32.3 RDW Std Deviation 46.2 H RDW Coeff of Brittanie 14.3 Plt Count 178 MPV 10.7 Immature Gran % (Auto) 0.500 Neut % (Auto) 78.2 H Lymph % (Auto) 13.0 L [place] % (Auto) 8.1 Eos % (Auto) 0.0 Baso % (Auto) 0.2 Absolute Neuts (auto) 5.2 Absolute Lymphs (auto) 0.86 Nucleated RBC % 0 Sodium 143 Potassium 3.8 Chloride 115 H Carbon Dioxide 20.0 L Anion Gap 8 BUN 22 H Creatinine 1.15 H Estim Creat Clear Calc 42.12 Est GFR (MDRD) Af Amer 61 Est GFR (MDRD) Non-Af 50 L BUN/Creatinine Ratio 19.1 Glucose 112 H Calcium 7.6 L Total Bilirubin 0.20 Direct Bilirubin AST 34 ALT 20 Alkaline Phosphatase 50 Total Protein 5.3 L Albumin 2.2 L Globulin 3.1 Albumin/Globulin Ratio 0.7 L Blood Type O POSITIVE 07/20/20 07/20/20 07/20/20 06:55 06:55 06:55 WBC 7.9 RBC 4.25 Hgb 12.2 Hct 38.1 MCV 89.6 MCH 28.7 MCHC 32.0 RDW Std Deviation 46.3 H RDW Coeff of Brittanie 14.2 Plt Count 183 MPV 11.4 Immature Gran % (Auto) 0.600 Neut % (Auto) 81.2 H Lymph % (Auto) 9.0 L [place] % (Auto) 8.9 Eos % (Auto) 0.0 Baso % (Auto) 0.3 Absolute Neuts (auto) 6.4 Absolute Lymphs (auto) 0.71 L Nucleated RBC % 0 Sodium 143 Potassium 4.0 Chloride 113 H Carbon Dioxide 22.0 Anion Gap 8 BUN 20 H Creatinine 0.93 Estim Creat Clear Calc 52.08 Est GFR (MDRD) Af Amer 77 Est GFR (MDRD) Non-Af 64 BUN/Creatinine Ratio 21.4 H Glucose 106 Calcium 7.8 L Total Bilirubin 0.30 Direct Bilirubin 0.07 AST 35 ALT 25 Alkaline Phosphatase 62 Total Protein 5.7 L Albumin 2.3 L Globulin 3.4 Albumin/Globulin Ratio Blood Type Microbiology 07/16/20 18:25 Blood Culture (Wb) - Anticubital Left Blood Culture - Preliminary No growth in 48 hours. 07/16/20 18:15 Blood Culture (Wb) - Left Forearm Blood Culture - Preliminary No growth in 48 hours. 07/19/20 Unknown Stool Enteric Bacteriology - Final Clinical Impression(s) from Imaging Studies Chest X-Ray 07/16/20 15:58 IMPRESSION: Normal x-ray examination of the chest. Electronically Signed: Eddie Rivera DO at 16:09 EDT Tel [phone], Service support , Current Medications Acetaminophen (Acetaminophen 325 Mg Tablet) 650 mg PO Q6H PRN PRN PRN Reason: Pain Score 1-10/Temp > 100.7 F Last Admin: 07/18/20 08:41 Dose: 325 mg Documented by: Hydrocodone Bitart/Acetaminophen (Hydrocodone Bitartrate/Apap 5/325 Tablet) 1 tablet PO TID PRN PRN PRN Reason: Pain Score 1-10 Last Admin: 07/20/20 08:46 Dose: 1 tablet Documented by: Albuterol Sulfate (Albuterol Sulfate 8 Gm Inhaler (60 Puffs)) 2 puff INHALATION Q4H PRN PRN PRN Reason: SOB &/OR WHEEZING Calamine/Phenol (Menthol/Lanolin/Calamine/Znox 113 Gm Tube) 1 applic TOPICAL TID [facility]; Protocol Last Admin: 07/20/20 04:56 Dose: Not Given Documented by: Dexamethasone (Dexamethasone 4 Mg Tablet) 6 mg PO DAILY@0800 [facility] Last Admin: 07/20/20 08:47 Dose: 6 mg Documented by: Enoxaparin Sodium (Enoxaparin 80 Mg/0.8 Ml Syringe) 80 mg SC DAILY [facility] Last Admin: 07/20/20 08:53 Dose: 80 mg Documented by: Gabapentin (Gabapentin 400 Mg Capsule) 400 mg PO TIDCM [facility] Last Admin: 07/20/20 11:30 Dose: 400 mg Documented by: Remdesivir 100 mg/ Sodium (Chloride) 250 mls @ 125 mls/hr IV DAILY [facility]; Protocol Stop: 07/21/20 11:59 Last Admin: 07/20/20 10:40 Dose: 125 mls/hr Documented by: Potassium Chloride/Sodium Chloride () 1,000 mls @ 60 mls/hr IV .[id number] [facility] Last Infusion: 07/20/20 10:51 Dose: 0 mls/hr Documented by: Levothyroxine Sodium (Levothyroxine 25 Mcg Tablet) 25 mcg PO DAILY [facility] Last Admin: 07/20/20 08:47 Dose: 25 mcg Documented by: Loperamide HCl (Loperamide 2 Mg Capsule) 2 mg PO Q4H PRN PRN PRN Reason: DIARRHEA/LOOSE STOOLS Last Admin: 07/19/20 13:19 Dose: 2 mg Documented by: Melatonin (Melatonin 3 Mg Tablet) 3 mg PO QHS PRN PRN PRN Reason: INSOMNIA Ondansetron HCl (Ondansetron 4 Mg/2 Ml Vial) 4 mg IV Q8H PRN PRN PRN Reason: NAUSEA/VOMITING Last Admin: 07/19/20 13:19 Dose: 4 mg Documented by: Pantoprazole Sodium (Pantoprazole Sodium 40 Mg Tablet) 40 mg PO BID [facility] Last Admin: 07/20/20 08:47 Dose: 40 mg Documented by: Potassium Chloride (Potassium Chloride 20 Meq Tablet) 40 meq PO DAILYCM [facility] Last Admin: 07/20/20 08:46 Dose: 40 meq Documented by: Sodium Chloride (0.9% Saline Lock 10 Ml Syringe) 10 - 40 ml IV UD PRN PRN Reason: SALINE FLUSH Last Admin: 07/20/20 05:39 Dose: 10 ml Documented by: Medical Necessity - Tobacco Use Smoking Status: Former smoker Tobacco Use: Cigarettes Assessment/Plan All Active Problems (Last Reviewed 07/16/20 @ 23:[address] Richard Gaona MD) COVID-19 (Acute) Hypoxia (Acute) Hypokalemia (Acute) Respiratory insufficiency (Acute) RECOMMENDATIONS: 1. Wean supplemental oxygen to maintain saturations at or above 90%. 2. Continue Lovenox, Decadron and remdesivir. 3. Start IV Lasix today. 4. Encourage incentive spirometer use and mobilize patient as tolerated. IMPRESSIONS: 1. Acute hypoxemic respiratory failure secondary to COVID-19 pneumonia The patient continues to be quite tenuous from a respiratory perspective with high supplemental oxygen requirement. Plan to continue Decadron and therapeutic Lovenox as ordered. Continue remdesivir as well. Wean supplemental oxygen to maintain saturations at or above 90%. Encourage incentive spirometer use and mobilize patient as tolerated. We will start the patient on IV Lasix today in hopes of gentle diuresis. 2. Acute kidney injury/advanced age Complicates care, management, recovery and prognosis. Continue current supportive measures. This note was generated with [employer] dictation software. It may contain incorrect words, spelling, and punctuation that were not noted in checking the note before signing. Inpatient E&M: 80191 Subs Hosp L3
[2020-07-20] MEDS: Furosemide 40 MG/4 ML Vial IV (17:10)
--- NOTE | 2020-07-20 21:00 | CPS ---
changed water bottle on airvo
[2020-07-20] MEDS: Menthol/Lanolin/Calamine/Znox 113 GM Tube 1 APPLIC TOPICAL (21:07)
[2020-07-21] VITALS (18 sets, daily range): BP systolic 123–142; BP diastolic 58–76; PULSE 37–60; RESP 16–22; TEMP 36.7–36.8; O2SAT 91–95
[2020-07-21] MEDS: HYDROcodone Bitartrate/Apap 5/325 Tablet PO ×3 (02:26→20:00)
[2020-07-21 07:25] LABS: Absolute Lymphocyte Count 0.74 X10^3/uL (0.83-4.51); Absolute Neutrophil Count 5.7 X10^3/uL (2.0-7.7); Basophil# 0.01 X10^3/uL; Basophil% 0.1 % (0-1); Hematocrit 39.4 % (37-47); Hemoglobin 13.2 g/dL (12.0-15.0); Lymphocyte # 0.74 X10^3/ul (4.0); Lymphocyte % 10.1 % (19-41); Mean Corp Hgb Conc 33.5 g/dL (32-36); Mean Corpuscular Volume 86.6 fL (81-99); Mean Platelet Vol. 10.9 fl (6.2-12.0); Monocyte# 0.86 X10^3/uL; Monocyte% 11.7 % (0-10); NRBC Flagged by Analyzer 0 % (0-5); Neutrophil # 5.68 X10^3/uL (2.7-7.7); Neutrophil % 77.3 % (47-70); Platelet Count 256 K/mm3 (150-450); RBC Distribution Width CV 13.5 % (11.6-14.6); RBC Distribution Width SD 43.1 fl (35.1-43.9); Red Blood Count 4.55 M/mm3 (4.2-5.4); White Blood Count 7.4 K/mm3 (4.4-11.0)
[2020-07-21 08:00] LABS: AST(SGOT) 36 U/L (15-37); Alanine Aminotransfer ALT/SGPT 31 U/L (13-56); Albumin, Serum 2.4 g/dL (3.2-5.0); Alkaline Phosphatase 80 U/L (45-117); Anion Gap 9 (5-15); BUN 24 mg/dL (7-18); BUN/Creat Ratio 26.2 RATIO (10-20); Bilirubin, Direct 0.14 mg/dL (0.00-0.30); Chloride 110 mmol/L (98-107); Creatinine, Serum 0.92 mg/dL (0.55-1.02); EST Glomerular Filtration Rate 65 mL/min (>60); Est Glom Filt Rate - Afr Amer 79 mL/min (>60); Estimated Creatinine Clearance 52.64 ml/min; Globulin 3.6 g/dL (2.2-4.2); Glucose 108 mg/dL (74-106); Potassium 3.6 mmol/L (3.5-5.1); Sodium Level 144 mmol/L (136-145)
[2020-07-21] MEDS: dexAMETHasone 4 MG Tablet 6 MG PO (08:40)
[2020-07-21] MEDS: Furosemide 40 MG/4 ML Vial IV ×2 (08:40→17:56)
[2020-07-21] MEDS: Enoxaparin 80 MG/0.8 ML Syringe SC (08:40)
[2020-07-21] MEDS: Levothyroxine 25 MCG TABLET PO (08:41)
[2020-07-21] MEDS: 0.9% Saline Lock 10 ML Syringe IV ×2 (08:41→17:56)
[2020-07-21] MEDS: Pantoprazole Sodium 40 MG Tablet PO ×2 (08:41→20:00)
[2020-07-21] MEDS: Gabapentin 400 MG Capsule PO ×2 (08:41→12:31)
--- NOTE | 2020-07-21 11:24 | PN_ITS ---
Patient Problems: Active and Suspected Problems (Last Reviewed 07/16/20 @ 23:[address] Richard Gaona MD) COVID-19 (Acute) Hypoxia (Acute) Hypokalemia (Acute) Respiratory insufficiency (Acute) Subjective: Patient seen and examined. She is feeling better though she remains on 15 L of oxygen. She has otherwise remained hemodynamically stable. Vitals/I&O's: Vital Signs Temp Pulse Resp BP Pulse Ox 98.3 F 60 19 H 142/76 H 92 07/21/20 08:52 07/21/20 08:52 07/21/20 08:52 07/21/20 08:52 07/21/20 08:52 Oxygen Flow Rate (L/min) 15 Oxygen Delivery Method Airvo Weight: 177 lb 15.984 oz Body Mass Index (BMI) 30.5 Intake and Output for Last 24 Hours 07/19/20 07/20/20 07/21/20 23:59 23:59 23:59 Intake Total 3349.0 / 3409.0 1283 / 1583 1784 / 1784 Output Total 1750 / 1950 3100 / 3400 700 / 700 Balance 1599.0 / 1459.0 -1817 / -1817 1084 / 1084 General: Alert, Oriented x3, Cooperative, HEENT: Atraumatic, PERRLA, EOMI, Normocephalic Oral: Dry Mucosa Neck: Supple, No JVD, Negative Carotid Bruits Lungs: - - diminished breath sounds, on 15L of oxygen by nasal canula Cardiovascular: Normal S1, Normal S2, No murmurs, Bradycardic Abdomen: Bowel Sounds Present, Soft, Non Tender Extremities: No clubbing, No cyanosis, No edema, Capillary Refill Less than 3 Seconds Skin: No rashes, No breakdown Musculoskeletal: No Tenderness to Palpation of Joints or Extremities Lymphatic: No Cervical, Supraclavicular, or Inguinal Adenopathy Neurological: Cranial nerves II-XII grossly intact, Neuro grossly intact, Motor Exam 5/5 strength throughout Psych/Mental Status: Normal Affect, Appropriate, Alert and oriented to time, place, person, mood and affect Microbiology Past 72 Hours 07/16/20 18:25 Blood Culture (Wb) - Anticubital Left Blood Culture - Preliminary No growth in 48 hours. 07/16/20 18:15 Blood Culture (Wb) - Left Forearm Blood Culture - Preliminary No growth in 48 hours. 07/19/20 Unknown Stool Enteric Bacteriology - Final Laboratory Results 07/21/20 06:40: WBC 7.4, RBC 4.55, Hgb 13.2, Hct 39.4, MCV 86.6, MCH 29.0, MCHC 33.5, RDW Std Deviation 43.1, RDW Coeff of Brittanie 13.5, Plt Count 256, MPV 10.9, Immature Gran % (Auto) 0.800, Neut % (Auto) 77.3 H, Lymph % (Auto) 10.1 L, [place] % (Auto) 11.7 H, Eos % (Auto) 0.0, Baso % (Auto) 0.1, Absolute Neuts (auto) 5.7, Absolute Lymphs (auto) 0.74 L, Nucleated RBC % 0 07/21/20 06:40: Sodium 144, Potassium 3.6, Chloride 110 H, Carbon Dioxide 25.0, Anion Gap 9, BUN 24 H, Creatinine 0.92, Estim Creat Clear Calc 52.64, Est GFR (MDRD) Af Amer 79, Est GFR (MDRD) Non-Af 65, BUN/Creatinine Ratio 26.2 H, Glucose 108 H, Calcium 8.0 L, Total Bilirubin 0.50, Direct Bilirubin 0.14, AST 36, ALT 31, Alkaline Phosphatase 80, Total Protein 6.0 L, Albumin 2.4 L, Glob ulin 3.6 Diagnostic Data Chest X-Ray 07/16/20 15:58 IMPRESSION: Normal x-ray examination of the chest. Electronically Signed: Eddie Rivera DO at 16:09 EDT Tel [phone], Service support , Current Medications Acetaminophen (Acetaminophen 325 Mg Tablet) 650 mg PO Q6H PRN PRN PRN Reason: Pain Score 1-10/Temp > 100.7 F Last Admin: 07/18/20 08:41 Dose: 325 mg Documented by: Hydrocodone Bitart/Acetaminophen (Hydrocodone Bitartrate/Apap 5/325 Tablet) 1 tablet PO TID PRN PRN PRN Reason: Pain Score 1-10 Last Admin: 07/21/20 10:26 Dose: 1 tablet Documented by: Albuterol Sulfate (Albuterol Sulfate 8 Gm Inhaler (60 Puffs)) 2 puff INHALATION Q4H PRN PRN PRN Reason: SOB &/OR WHEEZING Calamine/Phenol (Menthol/Lanolin/Calamine/Znox 113 Gm Tube) 1 applic TOPICAL TID [facility]; Protocol Last Admin: 07/21/20 06:28 Dose: Not Given Documented by: Dexamethasone (Dexamethasone 4 Mg Tablet) 6 mg PO DAILY@0800 [facility] Last Admin: 07/21/20 08:40 Dose: 6 mg Documented by: Enoxaparin Sodium (Enoxaparin 80 Mg/0.8 Ml Syringe) 80 mg SC DAILY [facility] Last Admin: 07/21/20 08:40 Dose: 80 mg Documented by: Furosemide (Furosemide 40 Mg/4 Ml Vial) 40 mg IV BID@1000,1800 [facility] Last Admin: 07/21/20 08:40 Dose: 40 mg Documented by: Gabapentin (Gabapentin 400 Mg Capsule) 400 mg PO TIDCM [facility] Last Admin: 07/21/20 08:41 Dose: 400 mg Documented by: Remdesivir 100 mg/ Sodium (Chloride) 250 mls @ 125 mls/hr IV DAILY [facility]; Protocol Stop: 07/21/20 11:59 Last Admin: 07/21/20 10:26 Dose: 125 mls/hr Documented by: Potassium Chloride/Sodium Chloride () 1,000 mls @ 60 mls/hr IV .[id number] [facility] Last Infusion: 07/21/20 09:37 Dose: 0 mls/hr Documented by: Levothyroxine Sodium (Levothyroxine 25 Mcg Tablet) 25 mcg PO DAILY [facility] Last Admin: 07/21/20 08:41 Dose: 25 mcg Documented by: Loperamide HCl (Loperamide 2 Mg Capsule) 2 mg PO Q4H PRN PRN PRN Reason: DIARRHEA/LOOSE STOOLS Last Admin: 07/19/20 13:19 Dose: 2 mg Documented by: Melatonin (Melatonin 3 Mg Tablet) 3 mg PO QHS PRN PRN PRN Reason: INSOMNIA Ondansetron HCl (Ondansetron 4 Mg/2 Ml Vial) 4 mg IV Q8H PRN PRN PRN Reason: NAUSEA/VOMITING Last Admin: 07/19/20 13:19 Dose: 4 mg Documented by: Pantoprazole Sodium (Pantoprazole Sodium 40 Mg Tablet) 40 mg PO BID [facility] Last Admin: 07/21/20 08:41 Dose: 40 mg Documented by: Potassium Chloride (Potassium Chloride 20 Meq Tablet) 40 meq PO DAILYCM [facility] Last Admin: 07/21/20 08:41 Dose: 40 meq Documented by: Sodium Chloride (0.9% Saline Lock 10 Ml Syringe) 10 - 40 ml IV UD PRN PRN Reason: SALINE FLUSH Last Admin: 07/21/20 08:41 Dose: 10 ml Documented by: STROKE Vital Signs/Narrative: Vital Signs Temp Pulse Resp BP Pulse Ox 07/21/20 08:52 98.3 F 60 19 H 142/76 H 92 07/21/20 08:32 54 L 16 92 Medical Necessity - Tobacco Use Smoking Status: Former smoker Tobacco Use: Cigarettes Assessment/Plan All Active Problems (Last Reviewed 07/16/20 @ 23:[address] Richard Gaona MD) COVID-19 (Acute) Hypoxia (Acute) Hypokalemia (Acute) Respiratory insufficiency (Acute) #Acute hypoxic respiratory failure due to COVID-19 pneumonia * back on 15L of oxygen. * IV dexamethasone. On breathing treatments with bronchodilators. * On remdesivir. * Encourage incentive spirometry use. * received convalescent plasma * Consult infectious disease. Pulmonology on board. * in cumulative positive balance by 8L * started on IV lasix. * titrate oxygen to maintain sats >90% * #Bradycardia: * HR is now 60. EKG showed first degree AV block. * Discussed patient's bradycardia with pipe organ tuner and repairer on-call, Dr. Angeles. Per discussion, patient's bradycardia may be related to her Covid infection as well. We will hold off on any active intervention for now and patient follow- up with cardiology on outpatient basis once Covid infection resolves. * #Acute COVID-19 infection: As under management for respiratory failure #Hypomagnesemia and hypokalemia: Resolved. #JARRETT on CKD stage III: Resolved #Hypertension: Losartan held on admission due to hypotension. Continue holding and monitor. #Hypothyroidism: On Synthroid DVT prophylaxis: Lovenox Inpatient E&M: 77137 [facility] Hosp L3
--- NOTE | 2020-07-21 12:25 | PN_ITS ---
Patient Problems: Active and Suspected Problems (Last Reviewed 07/16/20 @ 23:[address] Richard Gaona MD) COVID-19 (Acute) Hypoxia (Acute) Hypokalemia (Acute) Respiratory insufficiency (Acute) Subjective: The patient was seen and examined at the bedside this morning. Events from the last 24 hours have been reviewed. The patient is currently afebrile, hemodynamically stable and maintaining appropriate oxygen saturations on Airvo with an FiO2 requirement of 77%. The patient has already received convalescent plasma and remains on Decadron, Lovenox, and Lasix. She has completed her treatment course of remdesivir. The patient is currently documented to be overall net +8.3 L for the hospital admission. Creatinine is stable. Objective: The patient's most recent lab work, culture data and imaging studies have all been personally reviewed. Coronavirus PCR was positive on July 14. Cultures have shown no growth to date. - Physical Exam Vitals/I&O's: Vital Signs Temp Pulse Resp BP Pulse Ox 98.3 F 60 19 H 142/76 H 92 07/21/20 08:52 07/21/20 08:52 07/21/20 08:52 07/21/20 08:52 07/21/20 08:52 Oxygen Flow Rate (L/min) 15 Oxygen Delivery Method Airvo Weight: 177 lb 15.984 oz Body Mass Index (BMI) 30.5 Intake and Output for Last 24 Hours 07/19/20 07/20/20 07/21/20 23:59 23:59 23:59 Intake Total 3349.0 / 3409.0 1283 / 1583 1784 / 1784 Output Total 1750 / 1950 3100 / 3400 700 / 700 Balance 1599.0 / 1459.0 -1817 / -1817 1084 / 1084 General: Alert, Cooperative HEENT: Atraumatic, Normocephalic Oral: No Gingival or Mucosal Lesions/ Ulcerations Neck: Supple, No Nodes, Trachea Midline Lungs: Diminished Cardiovascular: Regular rate, Regular Rhythm Abdomen: Bowel Sounds Present, Soft, Non Tender, Obese Extremities: No clubbing, No cyanosis, No edema Skin: No breakdown Musculoskeletal: No Muscle Wasting Lymphatic: No Cervical, Supraclavicular, or Inguinal Adenopathy Neurological: Neuro grossly intact Psych/Mental Status: Normal Affect, Appropriate Labs (Last 48 Hours) 07/19/20 07/20/20 07/20/20 14:40 06:55 06:55 WBC 7.9 RBC 4.25 Hgb 12.2 Hct 38.1 MCV 89.6 MCH 28.7 MCHC 32.0 RDW Std Deviation 46.3 H RDW Coeff of Brittanie 14.2 Plt Count 183 MPV 11.4 Immature Gran % (Auto) 0.600 Neut % (Auto) 81.2 H Lymph % (Auto) 9.0 L [place] % (Auto) 8.9 Eos % (Auto) 0.0 Baso % (Auto) 0.3 Absolute Neuts (auto) 6.4 Absolute Lymphs (auto) 0.71 L Nucleated RBC % 0 Sodium 143 Potassium 4.0 Chloride 113 H Carbon Dioxide 22.0 Anion Gap 8 BUN 20 H Creatinine 0.93 Estim Creat Clear Calc 52.08 Est GFR (MDRD) Af Amer 77 Est GFR (MDRD) Non-Af 64 BUN/Creatinine Ratio 21.4 H Glucose 106 Calcium 7.8 L Total Bilirubin Direct Bilirubin AST ALT Alkaline Phosphatase Total Protein Albumin Globulin Blood Type O POSITIVE 07/20/20 07/21/20 07/21/20 06:55 06:40 06:40 WBC 7.4 RBC 4.55 Hgb 13.2 Hct 39.4 MCV 86.6 MCH 29.0 MCHC 33.5 RDW Std Deviation 43.1 RDW Coeff of Brittanie 13.5 Plt Count 256 MPV 10.9 Immature Gran % (Auto) 0.800 Neut % (Auto) 77.3 H Lymph % (Auto) 10.1 L [place] % (Auto) 11.7 H Eos % (Auto) 0.0 Baso % (Auto) 0.1 Absolute Neuts (auto) 5.7 Absolute Lymphs (auto) 0.74 L Nucleated RBC % 0 Sodium 144 Potassium 3.6 Chloride 110 H Carbon Dioxide 25.0 Anion Gap 9 BUN 24 H Creatinine 0.92 Estim Creat Clear Calc 52.64 Est GFR (MDRD) Af Amer 79 Est GFR (MDRD) Non-Af 65 BUN/Creatinine Ratio 26.2 H Glucose 108 H Calcium 8.0 L Total Bilirubin 0.30 0.50 Direct Bilirubin 0.07 0.14 AST 35 36 ALT 25 31 Alkaline Phosphatase 62 80 Total Protein 5.7 L 6.0 L Albumin 2.3 L 2.4 L Globulin 3.4 3.6 Blood Type Microbiology 07/16/20 18:25 Blood Culture (Wb) - Anticubital Left Blood Culture - Prelim inary No growth in 48 hours. 07/16/20 18:15 Blood Culture (Wb) - Left Forearm Blood Culture - Preliminary No growth in 48 hours. 07/19/20 Unknown Stool Enteric Bacteriology - Final Clinical Impression(s) from Imaging Studies Chest X-Ray 07/16/20 15:58 IMPRESSION: Normal x-ray examination of the chest. Electronically Signed: Eddie Rivera DO at 16:09 EDT Tel [phone], Service support , Current Medications Acetaminophen (Acetaminophen 325 Mg Tablet) 650 mg PO Q6H PRN PRN PRN Reason: Pain Score 1-10/Temp > 100.7 F Last Admin: 07/18/20 08:41 Dose: 325 mg Documented by: Hydrocodone Bitart/Acetaminophen (Hydrocodone Bitartrate/Apap 5/325 Tablet) 1 tablet PO TID PRN PRN PRN Reason: Pain Score 1-10 Last Admin: 07/21/20 10:26 Dose: 1 tablet Documented by: Albuterol Sulfate (Albuterol Sulfate 8 Gm Inhaler (60 Puffs)) 2 puff INHALATION Q4H PRN PRN PRN Reason: SOB &/OR WHEEZING Calamine/Phenol (Menthol/Lanolin/Calamine/Znox 113 Gm Tube) 1 applic TOPICAL TID [facility]; Protocol Last Admin: 07/21/20 06:28 Dose: Not Given Documented by: Dexamethasone (Dexamethasone 4 Mg Tablet) 6 mg PO DAILY@0800 [facility] Last Admin: 07/21/20 08:40 Dose: 6 mg Documented by: Enoxaparin Sodium (Enoxaparin 80 Mg/0.8 Ml Syringe) 80 mg SC DAILY [facility] Last Admin: 07/21/20 08:40 Dose: 80 mg Documented by: Furosemide (Furosemide 40 Mg/4 Ml Vial) 40 mg IV BID@1000,1800 [facility] Last Admin: 07/21/20 08:40 Dose: 40 mg Documented by: Gabapentin (Gabapentin 400 Mg Capsule) 400 mg PO TIDCM [facility] Last Admin: 07/21/20 08:41 Dose: 400 mg Documented by: Potassium Chloride/Sodium Chloride () 1,000 mls @ 60 mls/hr IV .[id number] [facility] Last Infusion: 07/21/20 09:37 Dose: 0 mls/hr Documented by: Levothyroxine Sodium (Levothyroxine 25 Mcg Tablet) 25 mcg PO DAILY [facility] Last Admin: 07/21/20 08:41 Dose: 25 mcg Documented by: Loperamide HCl (Loperamide 2 Mg Capsule) 2 mg PO Q4H PRN PRN PRN Reason: DIARRHEA/LOOSE STOOLS Last Admin: 07/19/20 13:19 Dose: 2 mg Documented by: Melatonin (Melatonin 3 Mg Tablet) 3 mg PO QHS PRN PRN PRN Reason: INSOMNIA Ondansetron HCl (Ondansetron 4 Mg/2 Ml Vial) 4 mg IV Q8H PRN PRN PRN Reason: NAUSEA/VOMITING Last Admin: 07/19/20 13:19 Dose: 4 mg Documented by: Pantoprazole Sodium (Pantoprazole Sodium 40 Mg Tablet) 40 mg PO BID [facility] Last Admin: 07/21/20 08:41 Dose: 40 mg Documented by: Potassium Chloride (Potassium Chloride 20 Meq Tablet) 40 meq PO DAILYCM [facility] Last Admin: 07/21/20 08:41 Dose: 40 meq Documented by: Sodium Chloride (0.9% Saline Lock 10 Ml Syringe) 10 - 40 ml IV UD PRN PRN Reason: SALINE FLUSH Last Admin: 07/21/20 08:41 Dose: 10 ml Documented by: Medical Necessity - Tobacco Use Smoking Status: Former smoker Tobacco Use: Cigarettes Assessment/Plan All Active Problems (Last Reviewed 07/16/20 @ 23:[address] Richard Gaona MD) COVID-19 (Acute) Hypoxia (Acute) Hypokalemia (Acute) Respiratory insufficiency (Acute) RECOMMENDATIONS: 1. Wean supplemental oxygen to maintain saturations at or above 90%. 2. Continue Lovenox and Decadron with plans to complete a 10-day treatment co urse. Remdesivir and plasma have completed. 3. Continue diuretic therapy as tolerated by hemodynamics and renal function. 4. Encourage incentive spirometer use and mobilize patient as tolerated. IMPRESSIONS: 1. Acute hypoxemic respiratory failure secondary to COVID-19 pneumonia The patient continues to be quite tenuous from a respiratory perspective with high supplemental oxygen requirement. Plan to continue Decadron and therapeutic Lovenox as ordered. The patient has already received convalescent plasma and completed a treatment course of remdesivir. Wean supplemental oxygen to maintain saturations at or above 90%. Encourage incentive spirometer use and mobilize patient as tolerated. The patient will be continued on gentle diuretic therapy as tolerated by hemodynamics and renal function. 2. Acute kidney injury/advanced age Complicates care, management, recovery and prognosis. Continue current sup portive measures. This note was generated with [email or web address] dictation software. It may contain incorrect words, spelling, and punctuation that were not noted in checking the note before signing. Inpatient E&M: 77638 Subs Hosp L3
--- NOTE | 2020-07-21 17:32 | PN.ID_ITS ---
Patient Problems: Active and Suspected Problems (Last Reviewed 07/16/20 @ 23:[address] Richard Gaona MD) COVID-19 (Acute) Hypoxia (Acute) Hypokalemia (Acute) Respiratory insufficiency (Acute) Subjective: Feeling better, mild nausea, no fever - Physical Exam Vitals/I&O's: Vital Signs Temp Pulse Resp BP Pulse Ox 98.3 F 48 L 19 H 123/66 H 94 07/21/20 16:18 07/21/20 16:18 07/21/20 16:18 07/21/20 16:18 07/21/20 16:18 Oxygen Flow Rate (L/min) 15 Oxygen Delivery Method Airvo Weight: 80.739 kg Body Mass Index (BMI) 30.5 Intake and Output for Last 24 Hours 07/19/20 07/20/20 07/21/20 23:59 23:59 23:59 Intake Total 3349.0 / 3409.0 1283 / 1583 2534 / 2534 Output Total 1750 / 1950 3100 / 3400 3500 / 3500 Balance 1599.0 / 1459.0 -1817 / -1817 -966 / -966 General: Alert, Cooperative, No apparent distress Lungs: Diminished Cardiovascular: Regular rate, Regular Rhythm Abdomen: Soft, Non Tender, Non-Distended Skin: No rashes Microbiology Past 72 Hours 07/16/20 18:25 Blood Culture (Wb) - Anticubital Left Blood Culture - Preliminary No growth in 48 hours. 07/16/20 18:15 Blood Culture (Wb) - Left Forearm Blood Culture - Preliminary No growth in 48 hours. 07/19/20 Unknown Stool Enteric Bacteriology - Final Laboratory Results 07/21/20 06:40: WBC 7.4, RBC 4.55, Hgb 13.2, Hct 39.4, MCV 86.6, MCH 29.0, MCHC 33.5, RDW Std Deviation 43.1, RDW Coeff of Brittanie 13.5, Plt Count 256, MPV 10.9, Immature Gran % (Auto) 0.800, Neut % (Auto) 77.3 H, Lymph % (Auto) 10.1 L, [place] % (Auto) 11.7 H, Eos % (Auto) 0.0, Baso % (Auto) 0.1, Absolute Neuts (auto) 5.7, Absolute Lymphs (auto) 0.74 L, Nucleated RBC % 0 07/21/20 06:40: Sodium 144, Potassium 3.6, Chloride 110 H, Carbon Dioxide 25.0, Anion Gap 9, BUN 24 H, Creatinine 0.92, Estim Creat Clear Calc 52.64, Est GFR (MDRD) Af Amer 79, Est GFR (MDRD) Non-Af 65, BUN/Creatinine Ratio 26.2 H, Glucose 108 H, Calcium 8.0 L, Total Bilirubin 0.50, Direct Bilirubin 0.14, AST 36, ALT 31, Alkaline Phosphatase 80, Total Protein 6.0 L, Albumin 2.4 L, Globulin 3.6 Current Medications Acetaminophen (Acetaminophen 325 Mg Tablet) 650 mg PO Q6H PRN PRN PRN Reason: Pain Score 1-10/Temp > 100.7 F Last Admin: 07/18/20 08:41 Dose: 325 mg Documented by: Hydrocodone Bitart/Acetaminophen (Hydrocodone Bitartrate/Apap 5/325 Tablet) 1 tablet PO TID PRN PRN PRN Reason: Pain Score 1-10 Last Admin: 07/21/20 10:26 Dose: 1 tablet Documented by: Albuterol Sulfate (Albuterol Sulfate 8 Gm Inhaler (60 Puffs)) 2 puff INHALATION Q4H PRN PRN PRN Reason: SOB &/OR WHEEZING Calamine/Phenol (Menthol/Lanolin/Calamine/Znox 113 Gm Tube) 1 applic TOPICAL TID [facility]; Protocol Last Admin: 07/21/20 12:33 Dose: Not Given Documented by: Dexamethasone (Dexamethasone 4 Mg Tablet) 6 mg PO DAILY@0800 [facility] Last Admin: 07/21/20 08:40 Dose: 6 mg Documented by: Enoxaparin Sodium (Enoxaparin 80 Mg/0.8 Ml Syringe) 80 mg SC DAILY [facility] Last Admin: 07/21/20 08:40 Dose: 80 mg Documented by: Furosemide (Furosemide 40 Mg/4 Ml Vial) 40 mg IV BID@1000,1800 [facility] Last Admin: 07/21/20 08:40 Dose: 40 mg Documented by: Gabapentin (Gabapentin 100 Mg Capsule) 200 mg PO TIDCM [facility] Potassium Chloride/Sodium Chloride () 1,000 mls @ 60 mls/hr IV .[id number] [facility] Last Infusion: 07/21/20 14:00 Dose: 60 mls/hr Documented by: Levothyroxine Sodium (Levothyroxine 25 Mcg Tablet) 25 mcg PO DAILY [facility] Last Admin: 07/21/20 08:41 Dose: 25 mcg Documented by: Loperamide HCl (Loperamide 2 Mg Capsule) 2 mg PO Q4H PRN PRN PRN Reason: DIARRHEA/LOOSE STOOLS Last Admin: 07/19/20 13:19 Dose: 2 mg Documented by: Melatonin (Melatonin 3 Mg Tablet) 3 mg PO QHS PRN PRN PRN Reason: INSOMNIA Ondansetron HCl (Ondansetron 4 Mg/2 Ml Vial) 4 mg IV Q8H PRN PRN PRN Reason: NAUSEA/VOMITING Last Admin: 07/19/20 13:19 Dose: 4 mg Documented by: Pantoprazole Sodium (Pantoprazole Sodium 40 Mg Tablet) 40 mg PO BID [facility] Last Admin: 07/21/20 08:41 Dose: 40 mg Documented by: Potassium Chloride (Potassium Chloride 20 Meq Tablet) 40 meq PO DAILYCM [facility] Last Admin: 07/21/20 08:41 Dose: 40 meq Documented by: Sodium Chloride (0.9% Saline Lock 10 Ml Syringe) 10 - 40 ml IV UD PRN PRN Reason: SALINE FLUSH Last Admin: 07/21/20 08:41 Dose: 10 ml Documented by: Medical Necessity - Tobacco Use Smoking Status: Former smoker Tobacco Use: Cigarettes Route of nutrition/ use of supplements: [] Nutritional Intake: [] IV Site: [] Gr Catheter: [] - Assessment/Plan Antibiotics: [] Assessment/Plan: [] Active and Suspected Problems (Last Reviewed 07/16/20 @ 23:[address] Richard Gaona MD) COVID-19 (Acute) Hypoxia (Acute) Hypokalemia (Acute) Respiratory insufficiency (Acute) On dex, remdesivir. Got plasma 07/19. On 15L airvo. Feeling better, O2 improved. Will follow
[2020-07-21] MEDS: Gabapentin 100 MG Capsule 200 MG PO (17:51)
[2020-07-21] MEDS: Menthol/Lanolin/Calamine/Znox 113 GM Tube 1 APPLIC TOPICAL (20:01)
[2020-07-22] VITALS (16 sets, daily range): BP systolic 107–164; BP diastolic 56–79; PULSE 36–65; RESP 16–28; TEMP 36.1–37.1; O2SAT 90–93
[2020-07-22] MEDS: Loperamide 2 MG Capsule PO ×2 (03:19→19:53)
[2020-07-22] MEDS: HYDROcodone Bitartrate/Apap 5/325 Tablet PO ×4 (03:21→20:45)
[2020-07-22 06:33] LABS: Absolute Lymphocyte Count 0.96 X10^3/uL (0.83-4.51); Absolute Neutrophil Count 7.6 X10^3/uL (2.0-7.7); Basophil# 0.02 X10^3/uL; Basophil% 0.2 % (0-1); Hematocrit 39.4 % (37-47); Hemoglobin 13.1 g/dL (12.0-15.0); Lymphocyte # 0.96 X10^3/ul (4.0); Lymphocyte % 9.8 % (19-41); Mean Corp Hgb Conc 33.2 g/dL (32-36); Mean Corpuscular Hgb 28.5 pg (27.0-32.0); Mean Corpuscular Volume 85.8 fL (81-99); Mean Platelet Vol. 10.9 fl (6.2-12.0); Monocyte# 1.09 X10^3/uL; Monocyte% 11.1 % (0-10); NRBC Flagged by Analyzer 0 % (0-5); Neutrophil # 7.56 X10^3/uL (2.7-7.7); Neutrophil % 77.4 % (47-70); POSITIVE MORPHOLOGY YES; Platelet Count 213 K/mm3 (150-450); RBC Distribution Width CV 13.2 % (11.6-14.6); RBC Distribution Width SD 41.4 fl (35.1-43.9); Red Blood Count 4.59 M/mm3 (4.2-5.4); White Blood Count 9.8 K/mm3 (4.4-11.0)
[2020-07-22 06:39] LABS: Differential Indicated SCAN CRITERIA MET
[2020-07-22 06:53] LABS: Atypical Lymphocyte 1+ %; Differential Comment SCANNED
[2020-07-22 06:54] LABS: Platelet Estimate ADEQUATE (ADEQ)
[2020-07-22 06:57] LABS: AST(SGOT) 40 U/L (15-37); Alanine Aminotransfer ALT/SGPT 43 U/L (13-56); Albumin, Serum 2.4 g/dL (3.2-5.0); Alkaline Phosphatase 86 U/L (45-117); Anion Gap 9 (5-15); BUN 28 mg/dL (7-18); BUN/Creat Ratio 29.3 RATIO (10-20); Calcium,Total 7.8 mg/dL (8.5-10.1); Chloride 107 mmol/L (98-107); Creatinine, Serum 0.96 mg/dL (0.55-1.02); EST Glomerular Filtration Rate 62 mL/min (>60); Est Glom Filt Rate - Afr Amer 75 mL/min (>60); Estimated Creatinine Clearance 50.45 ml/min; Globulin 3.5 g/dL (2.2-4.2); Glucose 137 mg/dL (74-106); Potassium 3.1 mmol/L (3.5-5.1); Protein, Total 5.9 g/dL (6.4-8.2); Sodium Level 143 mmol/L (136-145)
--- NOTE | 2020-07-22 07:41 | PN_ITS ---
Patient Problems: Active and Suspected Problems (Last Reviewed 07/16/20 @ 23:[address] Richard Gaona MD) COVID-19 (Acute) Hypoxia (Acute) Hypokalemia (Acute) Respiratory insufficiency (Acute) Subjective: Patient seen and examined. She remains on 15L of oxygen. She remains markedly bradycardic. REview of systems is otherwise negative. Potassium is 3.1 today. Vitals/I&O's: Vital Signs Temp Pulse Resp BP Pulse Ox 97.8 F 47 L 20 H 107/56 L 92 07/22/20 06:35 07/22/20 06:35 07/22/20 06:35 07/22/20 06:35 07/22/20 06:35 Oxygen Flow Rate (L/min) 15 Oxygen Delivery Method Airvo Weight: 177 lb 15.984 oz Body Mass Index (BMI) 30.5 Intake and Output for Last 24 Hours 07/20/20 07/21/20 07/22/20 23:59 23:59 23:59 Intake Total 1283 / 1583 3603 / 3603 420 / 420 Output Total 3100 / 3400 6500 / 6500 800 / 800 Balance -1817 / -1817 -2897 / -2897 -380 / -380 General: Alert, Oriented x3, Cooperative, HEENT: Atraumatic, PERRLA, EOMI, Normocephalic Oral: Dry Mucosa Neck: Supple, No JVD, Negative Carotid Bruits Lungs: - - diminished breath sounds, on 15L of oxygen by nasal canula Cardiovascular: Normal S1, Normal S2, No murmurs, Bradycardic Abdomen: Bowel Sounds Present, Soft, Non Tender Extremities: No clubbing, No cyanosis, No edema, Capillary Refill Less than 3 Seconds Skin: No rashes, No breakdown Musculoskeletal: No Tenderness to Palpation of Joints or Extremities Lymphatic: No Cervical, Supraclavicular, or Inguinal Adenopathy Neurological: Cranial nerves II-XII grossly intact, Neuro grossly intact, Motor Exam 5/5 strength throughout Psych/Mental Status: Normal Affect, Appropriate, Alert and oriented to time, place, person, mood and affect Microbiology Past 72 Hours 07/16/20 18:25 Blood Culture (Wb) - Anticubital Left Blood Culture - Final No growth in 5 days. 07/16/20 18:15 Blood Culture (Wb) - Left Forearm Blood Culture - Final No growth in 5 days. 07/19/20 Unknown Stool Enteric Bacteriology - Final Laboratory Results 07/21/20 06:40: Sodium 144, Potassium 3.6, Chloride 110 H, Carbon Dioxide 25.0, Anion Gap 9, BUN 24 H, Creatinine 0.92, Estim Creat Clear Calc 52.64, Est GFR (MDRD) Af Amer 79, Est GFR (MDRD) Non-Af 65, BUN/Creatinine Ratio 26.2 H, Glucose 108 H, Calcium 8.0 L, Total Bilirubin 0.50, Direct Bilirubin 0.14, AST 36, ALT 31, Alkaline Phosphatase 80, Total Protein 6.0 L, Albumin 2.4 L, Globulin 3.6 07/22/20 05:45: WBC 9.8, RBC 4.59, Hgb 13.1, Hct 39.4, MCV 85.8, MCH 28.5, MCHC 33.2, RDW Std Deviation 41.4, RDW Coeff of Brittanie 13.2, Plt Count 213, MPV 10.9, Immature Gran % (Auto) 1.500 H, Neut % (Auto) 77.4 H, Lymph % (Auto) 9.8 L, [place] % (Auto) 11.1 H, Eos % (Auto) 0.0, Baso % (Auto) 0.2, Absolute Neuts (auto) 7.6, Absolute Lymphs (auto) 0.96, Nucleated RBC % 0, Differential Comment SCANNED, Atypical Lymphocytes 1+, Platelet Estimate ADEQUATE 07/22/20 05:45: Sodium 143, Potassium 3.1 L, Chloride 107, Carbon Dioxide 27.0, Anion Gap 9, BUN 28 H, Creatinine 0.96, Estim Creat Clear Calc 50.45, Est GFR (MDRD) Af Amer 75, Est GFR (MDRD) Non-Af 62, BUN/Creatinine Ratio 29.3 H, Glucose 137 H, Calcium 7.8 L, Total Bilirubin 0.70, Direct Bilirubin 0.20, AST 40 H, ALT 43, Alkaline Phosphatase 86, Total Protein 5.9 L, Albumin 2.4 L, Globulin 3.5 Diagnostic Data Chest X-Ray 07/16/20 15:58 IMPRESSION: Normal x-ray examination of the chest. Electronically Signed: Eddie Rivera DO at 16:09 EDT Tel [phone], Service support , Current Medications Acetaminophen (Acetaminophen 325 Mg Tablet) 650 mg PO Q6H PRN PRN PRN Reason: Pain Score 1-10/Temp > 100.7 F Last Admin: 07/18/20 08:41 Dose: 325 mg Documented by: Hydrocodone Bitart/Acetaminophen (Hydrocodone Bitartrate/Apap 5/325 Tablet) 1 tablet PO TID PRN PRN PRN Reason: Pain Score 1-10 Last Admin: 07/22/20 03:21 Dose: 1 tablet Documented by: Albuterol Sulfate (Albuterol Sulfate 8 Gm Inhaler (60 Puffs)) 2 puff INHALATION Q4H PRN PRN PRN Reason: SOB &/OR WHEEZING Calamine/Phenol (Menthol/Lanolin/Calamine/Znox 113 Gm Tube) 1 applic TOPICAL 0800,1400,2200 [facility]; Protocol Dexamethasone (Dexamethasone 4 Mg Tablet) 6 mg PO DAILY@0800 [facility] Last Admin: 07/21/20 08:40 Dose: 6 mg Documented by: Enoxaparin Sodium (Enoxaparin 80 Mg/0.8 Ml Syringe) 80 mg SC DAILY [facility] Last Admin: 07/21/20 08:40 Dose: 80 mg Documented by: Furosemide (Furosemide 40 Mg/4 Ml Vial) 40 mg IV BID@1000,1800 [facility] Last Admin: 07/21/20 17:56 Dose: 40 mg Documented by: Gabapentin (Gabapentin 100 Mg Capsule) 200 mg PO TIDCM [facility] Last Admin: 07/21/20 17:51 Dose: 200 mg Documented by: Potassium Chloride/Sodium Chloride () 1,000 mls @ 60 mls/hr IV .[id number] [facility] Last Admin: 07/21/20 23:29 Dose: 60 mls/hr Documented by: Potassium Chloride 40 meq/ (Sodium Chloride) 520 mls @ 130 mls/hr IV .Q4H [facility] Stop: 07/22/20 11:59 Levothyroxine Sodium (Levothyroxine 25 Mcg Tablet) 25 mcg PO DAILY [facility] Last Admin: 07/21/20 08:41 Dose: 25 mcg Documented by: Loperamide HCl (Loperamide 2 Mg Capsule) 2 mg PO Q4H PRN PRN PRN Reason: DIARRHEA/LOOSE STOOLS Last Admin: 07/22/20 03:19 Dose: 2 mg Documented by: Melatonin (Melatonin 3 Mg Tablet) 3 mg PO QHS PRN PRN PRN Reason: INSOMNIA Ondansetron HCl (Ondansetron 4 Mg/2 Ml Vial) 4 mg IV Q8H PRN PRN PRN Reason: NAUSEA/VOMITING Last Admin: 07/19/20 13:19 Dose: 4 mg Documented by: Pantoprazole Sodium (Pantoprazole Sodium 40 Mg Tablet) 40 mg PO BID [facility] Last Admin: 07/21/20 20:00 Dose: 40 mg Documented by: Potassium Chloride (Potassium Chloride 20 Meq Tablet) 40 meq PO DAILYCM [facility] Last Admin: 07/21/20 08:41 Dose: 40 meq Documented by: Sodium Chloride (0.9% Saline Lock 10 Ml Syringe) 10 - 40 ml IV UD PRN PRN Reason: SALINE FLUSH Last Admin: 07/21/20 17:56 Dose: 10 ml Documented by: STROKE Vital Signs/Narrative: Vital Signs Temp Pulse Resp BP Pulse Ox 07/22/20 06:35 97.8 F 47 L 20 H 107/56 L 92 Medical Necessity - Tobacco Use Smoking Status: Former smoker Tobacco Use: Cigarettes Assessment/Plan All Active Problems (Last Reviewed 07/16/20 @ 23:[address] Richard Gaona MD) COVID-19 (Acute) Hypoxia (Acute) Hypokalemia (Acute) Respiratory insufficiency (Acute) #Acute hypoxic respiratory failure due to COVID-19 pneumonia * back on 15L of oxygen. * IV dexamethasone. On breathing treatments with bronchodilators. * On remdesivir. * Encourage incentive spirometry use. * received convalescent plasma * ID and pulmonology on board * in cumulative positive balance by 3.9L * on IV lasix * titrate oxygen to maintain sats >90% * #Bradycardia: * HR is now 60. EKG showed first degree AV block. * Still remains bradycardic. * Bradycardia could be related to her Covid infection. 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 Plan is to hold off on any active intervention for now until Covid infection resolves to see if heart rate will improve or she would need further intervention. * * #Acute COVID-19 infection: As under management for respiratory failure #Hypomagnesemia and hypokalemia: Resolved. #JARRETT on CKD stage III: Resolved #Hypertension: Losartan held on admission due to hypotension. Continue holding and monitor. #Hypothyroidism: On Synthroid DVT prophylaxis: Lovenox Inpatient E&M: [id number] [facility] Hosp L3
--- NOTE | 2020-07-22 07:41 | EKG12_ITS ---
Test Reason : ARRYTHMIA Blood Pressure : / mmHG Vent. Rate : 040 BPM Atrial Rate : 040 BPM P-R Int : 216 ms QRS Dur : 068 ms QT Int : 530 ms P-R-T Axes : 052 000 014 degrees QTc Int : 431 ms Marked sinus bradycardia with 1st degree A-V block Low voltage QRS Abnormal ECG Confirmed by IJEOMA ERNANDEZ, BARBARA ([id number]), television news video editor KRISTEN VALENTIN ([id number]) on 07/26/2020 2:35:28 PM Referred By: MANPREET Confirmed By:BARBARA RAPHAEL MD
[2020-07-22] MEDS: Enoxaparin 80 MG/0.8 ML Syringe SC (08:27)
[2020-07-22] MEDS: Gabapentin 100 MG Capsule 200 MG PO ×3 (08:28→16:29)
[2020-07-22] MEDS: Pantoprazole Sodium 40 MG Tablet PO ×2 (08:28→19:38)
[2020-07-22] MEDS: Furosemide 40 MG/4 ML Vial IV ×2 (08:29→16:29)
[2020-07-22] MEDS: dexAMETHasone 4 MG Tablet 6 MG PO (08:29)
[2020-07-22] MEDS: Levothyroxine 25 MCG TABLET PO (08:36)
[2020-07-22] MEDS: Menthol/Lanolin/Calamine/Znox 113 GM Tube 1 APPLIC TOPICAL ×2 (08:36→19:41)
--- NOTE | 2020-07-22 12:02 | PN.ID_ITS ---
Patient Problems: Active and Suspected Problems (Last Reviewed 07/16/20 @ 23:[address] Richard Gaona MD) COVID-19 (Acute) Hypoxia (Acute) Hypokalemia (Acute) Respiratory insufficiency (Acute) Subjective: Not feeling much better, no fever, still some dyspnea - Physical Exam Vitals/I&O's: Vital Signs Temp Pulse Resp BP Pulse Ox 97.8 F 55 L 22 H 157/70 H 93 07/22/20 10:39 07/22/20 10:39 07/22/20 10:39 07/22/20 10:39 07/22/20 10:39 Oxygen Flow Rate (L/min) 15 Oxygen Delivery Method Airvo Weight: 80.739 kg Body Mass Index (BMI) 30.5 Intake and Output for Last 24 Hours 07/20/20 07/21/20 07/22/20 23:59 23:59 23:59 Intake Total 1283 / 1583 3603 / 3603 1077.83 / 1077.83 Output Total 3100 / 3400 6500 / 6500 800 / 800 Balance -1817 / -1817 -2897 / -2897 277.83 / 277.83 General: Alert, Cooperative, No apparent distress Lungs: Diminished Cardiovascular: Regular rate, Regular Rhythm Abdomen: Soft, Non Tender, Non-Distended Skin: No rashes Microbiology Past 72 Hours 07/16/20 18:25 Blood Culture (Wb) - Anticubital Left Blood Culture - Final No growth in 5 days. 07/16/20 18:15 Blood Culture (Wb) - Left Forearm Blood Culture - Final No growth in 5 days. 07/19/20 Unknown Stool Enteric Bacteriology - Final Laboratory Results 07/22/20 05:45: WBC 9.8, RBC 4.59, Hgb 13.1, Hct 39.4, MCV 85.8, MCH 28.5, MCHC 33.2, RDW Std Deviation 41.4, RDW Coeff of Brittanie 13.2, Plt Count 213, MPV 10.9, Immature Gran % (Auto) 1.500 H, Neut % (Auto) 77.4 H, Lymph % (Auto) 9.8 L, [place] % (Auto) 11.1 H, Eos % (Auto) 0.0, Baso % (Auto) 0.2, Absolute Neuts (auto) 7.6, Absolute Lymphs (auto) 0.96, Nucleated RBC % 0, Differential Comment SCANNED, Atypical Lymphocytes 1+, Platelet Estimate ADEQUATE 07/22/20 05:45: Sodium 143, Potassium 3.1 L, Chloride 107, Carbon Dioxide 27.0, Anion Gap 9, BUN 28 H, Creatinine 0.96, Estim Creat Clear Calc 50.45, Est GFR (MDRD) Af Amer 75, Est GFR (MDRD) Non-Af 62, BUN/Creatinine Ratio 29.3 H, Glucose 137 H, Calcium 7.8 L, Total Bilirubin 0.70, Direct Bilirubin 0.20, AST 40 H, ALT 43, Alkaline Phosphatase 86, Total Protein 5.9 L, Albumin 2.4 L, Globulin 3.5 Current Medications Acetaminophen (Acetaminophen 325 Mg Tablet) 650 mg PO Q6H PRN PRN PRN Reason: Pain Score 1-10/Temp > 100.7 F Last Admin: 07/18/20 08:41 Dose: 325 mg Documented by: Hydrocodone Bitart/Acetaminophen (Hydrocodone Bitartrate/Apap 5/325 Tablet) 1 tablet PO TID PRN PRN PRN Reason: Pain Score 1-10 Last Admin: 07/22/20 03:21 Dose: 1 tablet Documented by: Albuterol Sulfate (Albuterol Sulfate 8 Gm Inhaler (60 Puffs)) 2 puff INHALATION Q4H PRN PRN PRN Reason: SOB &/OR WHEEZING Calamine/Phenol (Menthol/Lanolin/Calamine/Znox 113 Gm Tube) 1 applic TOPICAL 0800,1400,2200 [facility]; Protocol Last Admin: 07/22/20 08:36 Dose: 1 applicatio Documented by: Dexamethasone (Dexamethasone 4 Mg Tablet) 6 mg PO DAILY [facility] Last Admin: 07/22/20 08:29 Dose: 6 mg Documented by: Enoxaparin Sodium (Enoxaparin 80 Mg/0.8 Ml Syringe) 80 mg SC DAILY [facility] Last Admin: 07/22/20 08:27 Dose: 80 mg Documented by: Furosemide (Furosemide 40 Mg/4 Ml Vial) 40 mg IV BID@1000,1800 [facility] Last Admin: 07/22/20 08:29 Dose: 40 mg Documented by: Gabapentin (Gabapentin 100 Mg Capsule) 200 mg PO TIDCM [facility] Last Admin: 07/22/20 08:28 Dose: 200 mg Documented by: Potassium Chloride/Sodium Chloride () 1,000 mls @ 60 mls/hr IV .[id number] [facility] Last Infusion: 07/22/20 09:24 Dose: 60 mls/hr Documented by: Levothyroxine Sodium (Levothyroxine 25 Mcg Tablet) 25 mcg PO DAILY [facility] Last Admin: 07/22/20 08:36 Dose: 25 mcg Documented by: Loperamide HCl (Loperamide 2 Mg Capsule) 2 mg PO Q4H PRN PRN PRN Reason: DIARRHEA/LOOSE STOOLS Last Admin: 07/22/20 03:19 Dose: 2 mg Documented by: Melatonin (Melatonin 3 Mg Tablet) 3 mg PO QHS PRN PRN PRN Reason: INSOMNIA Ondansetron HCl (Ondansetron 4 Mg/2 Ml Vial) 4 mg IV Q8H PRN PRN PRN Reason: NAUSEA/VOMITING Last Admin: 07/19/20 13:19 Dose: 4 mg Documented by: Pantoprazole Sodium (Pantoprazole Sodium 40 Mg Tablet) 40 mg PO BID [facility] Last Admin: 07/22/20 08:28 Dose: 40 mg Documented by: Potassium Chloride (Potassium Chloride 20 Meq Tablet) 40 meq PO DAILY [facility] Last Admin: 07/22/20 08:28 Dose: 40 meq Documented by: Sodium Chloride (0.9% Saline Lock 10 Ml Syringe) 10 - 40 ml IV UD PRN PRN Reason: SALINE FLUSH Last Admin: 07/21/20 17:56 Dose: 10 ml Documented by: Medical Necessity - Tobacco Use Smoking Status: Former smoker Tobacco Use: Cigarettes Route of nutrition/ use of supplements: [] Nutritional Intake: [] IV Site: [] Gr Catheter: [] - Assessment/Plan Antibiotics: [] Assessment/Plan: [] Active and Suspected Problems (Last Reviewed 07/16/20 @ 23:[address] Richard Gaona MD) COVID-19 (Acute) Hypoxia (Acute) Hypokalemia (Acute) Respiratory insufficiency (Acute) On dex, remdesivir. Got plasma 07/19. Feeling about the same, still high O2 reqs Will follow
--- NOTE | 2020-07-22 13:03 | CON.PCM_ITS ---
Reason for Consult Date of Consultation: 07/22/20 Reason for Consultation: Slow heart rate History of Present Illness: The patient is a 64 year old F with a history of hypertension, chronic hypokalemia and back discomfort who presented to the emergency room on 07/16/2020 with malaise diarrhea and a productive cough of clear sputum. She was noted to be febrile and also had chills and rigors. She did test positive for COVID-19 and has been on admission. She received intravenous Decadron. She apparently has been doing fairly well. She has been noted to be bradycardic but denies any dizziness or diaphoresis near syncope or syncope. She has not had any syncopal spells. She does have a history of thyroid disease. Cardiology was asked to see her because of her persistent bradycardia. [] Past Medical History Allergies/Adverse Reactions: Allergies DAVID Inhibitors Allergy (Verified 07/16/20 15:04) Rash codeine Allergy (Verified 07/16/20 15:04) Vomiting walnut Allergy (Verified 07/16/20 15:04) Food Allergy Home Medications: Ambulatory Orders Medication Instructions Recorded Hydrocodone/Acetaminophen 1 tab PO TID PRN 11/03/17 [Hydrocodon-Acetaminophen 5-325] Levothyroxine [Synthroid] 25 mcg PO DAILY 11/03/17 Gabapentin [Neurontin] 400 mg PO TID 07/16/20 Hydrochlorothiazide [Hctz] 25 mg PO DAILY 07/16/20 Losartan Potassium [Cozaar] 100 mg PO DAILY 07/16/20 Omeprazole 40 mg PO BID 07/16/20 Potassium Citrate [Potassium 40 meq PO DAILY 07/16/20 Citrate ER] Surgical History: appendectomy, cholecystectomy, tonsillectomy, - - Benign lump was removed from bilateral breast. Vein stripping. Removal of heel spurs. - *Family History Maternal History Items: Cancer - Lungs Paternal History Items: Cancer - Lungs Smoking Status: Former smoker Tobacco Use: Cigarettes Alcohol: None Drugs: None Review of Systems - Review of Systems General: Reports: Fever, Fatigue, Malaise. Denies: Night Sweats Cardiovascular: Denies: Chest Discomfort, Shortness of Breath, Orthopnea, PND, Peripheral Edema, Palpitations, Lightheadedness, Dizziness, Near Syncope, Synco pe Respiratory: Reports: Cough, Non Productive Cough. Denies: Sputum Production, Hemoptysis Gastrointestinal: Denies: Hematemesis, Hematochezia, Melena Genitourinary: Denies: Dysuria, Hematuria Muscoloskeletal: Reports: Myalgias Skin: Denies: Rash Psychiatric: Denies: Anxiety Endocrine: Denies: Heat Intolerance Objective: Vital Signs Temp Pulse Resp BP Pulse Ox 97.8 F 44 L 20 H 162/79 H 92 07/22/20 12:10 07/22/20 12:38 07/22/20 12:10 07/22/20 12:10 07/22/20 12:10 Oxygen Flow Rate (L/min) 15 Oxygen Delivery Method Airvo Weight: 177 lb 15.984 oz Body Mass Index (BMI) 30.5 Intake and Output for Last 24 Hours 07/20/20 07/21/20 07/22/20 23:59 23:59 23:59 Intake Total 1283 / 1583 3603 / 3603 1684.50 / 1684.50 Output Total 3100 / 3400 6500 / 6500 1100 / 1100 Balance -1817 / -1817 -2897 / -2897 584.50 / 584.50 07/22/20 05:45: WBC 9.8, RBC 4.59, Hgb 13.1, Hct 39.4, MCV 85.8, MCH 28.5, MCHC 33.2, Plt Count 213, MPV 10.9, Immature Gran % (Auto) 1.500 H, Neut % (Auto) 77.4 H, Lymph % (Auto) 9.8 L, [place] % (Auto) 11.1 H, Eos % (Auto) 0.0, Baso % (Auto) 0.2, Absolute Neuts (auto) 7.6, Nucleated RBC % 0 07/22/20 05:45: Sodium 143, Potassium 3.1 L, Chloride 107, Carbon Dioxide 27.0, Anion Gap 9, BUN 28 H, Creatinine 0.96, Est GFR (MDRD) Af Amer 75, Est GFR (MDRD) Non-Af 62, BUN/Creatinine Ratio 29.3 H, Glucose 137 H, Calcium 7.8 L, Total Bilirubin 0.70, Direct Bilirubin 0.20 Rhythm: Sinus bradycardia with no pauses noted. Occasional aberrantly conducted beats noted EKG: Sinus bradycardia present ECHO: Stress Test: Cardiac Cath: PCI: CT Surgery: Holter monitor: EPS: PPM: CXR: Chest CT Scan: Assessment/Plan 1. Asymptomatic sinus bradycardia. * Patient has a history of thyroid issues and presents with COVID-19 and asymptomatic sinus bradycardia. She has had no pauses and at this time I do not think that this needs to be treated or intervened upon. I did ask her to reduce the dose of her Neurontin after discussion with the hospitalist. * I would recommend that we obtain a TSH as this has not been checked. Depending on the findings further recommendations will be made. * I did discuss with the patient that the current findings will be treated conservatively and expectantly. She expressed understanding. * * Thank you kindly for allowing me to participate in the care of your patient. Please don't hesitate to call if any issues arise.
--- NOTE | 2020-07-22 13:59 | PN_ITS ---
Patient Problems: Active and Suspected Problems (Last Reviewed 07/16/20 @ 23:[address] Richard Gaona MD) COVID-19 (Acute) Hypoxia (Acute) Hypokalemia (Acute) Respiratory insufficiency (Acute) Subjective: The patient was seen and examined at the bedside this morning. Events from the last 24 hours have been reviewed. The patient is currently afebrile, hemodynamically stable and maintaining appropriate oxygen saturations on Airvo heated high flow with an FiO2 requirement of 90%. The patient still reports feeling ill and fatigued. Potassium was low this morning at 3.1. The patient is currently documented to be overall net +5 L for the hospital admission. The patient has already received convalescent plasma and remains on Decadron, Lovenox, and Lasix. She has completed her treatment course of remdesivir. Objective: The patient's most recent lab work, culture data and imaging studies have all been personally reviewed. Coronavirus PCR was positive on July 14. Cultures have shown no growth to date. - Physical Exam Vitals/I&O's: Vital Signs Temp Pulse Resp BP Pulse Ox 97.8 F 44 L 20 H 162/79 H 92 07/22/20 12:10 07/22/20 12:38 07/22/20 12:10 07/22/20 12:10 07/22/20 12:10 Oxygen Flow Rate (L/min) 15 Oxygen Delivery Method Airvo Weight: 177 lb 15.984 oz Body Mass Index (BMI) 30.5 Intake and Output for Last 24 Hours 07/20/20 07/21/20 07/22/20 23:59 23:59 23:59 Intake Total 1283 / 1583 3603 / 3603 1684.50 / 1684.50 Output Total 3100 / 3400 6500 / 6500 1100 / 1100 Balance -1817 / -1817 -2897 / -2897 584.50 / 584.50 General: Alert, Cooperative HEENT: Atraumatic, PERRLA, Normocephalic Oral: No Gingival or Mucosal Lesions/ Ulcerations Neck: Supple, No Nodes, Trachea Midline Lungs: Diminished Cardiovascular: Normal S1, Normal S2, Bradycardic Abdomen: Bowel Sounds Present, Soft, Non Tender Extremities: No clubbing, No cyanosis, No edema Skin: No breakdown Musculoskeletal: No Tenderness to Palpation of Joints or Extremities, No Muscle Wasting Lymphatic: No Cervical, Supraclavicular, or Inguinal Adenopathy Neurological: Neuro grossly intact Psych/Mental Status: Flat Affect Labs (Last 48 Hours) 07/21/20 07/21/20 07/22/20 06:40 06:40 05:45 WBC 7.4 9.8 RBC 4.55 4.59 Hgb 13.2 13.1 Hct 39.4 39.4 MCV 86.6 85.8 MCH 29.0 28.5 MCHC 33.5 33.2 RDW Std Deviation 43.1 41.4 RDW Coeff of Brittanie 13.5 13.2 Plt Count 256 213 MPV 10.9 10.9 Immature Gran % (Auto) 0.800 1.500 H Neut % (Auto) 77.3 H 77.4 H Lymph % (Auto) 10.1 L 9.8 L Harlan % (Auto) 11.7 H 11.1 H Eos % (Auto) 0.0 0.0 Baso % (Auto) 0.1 0.2 Absolute Neuts (auto) 5.7 7.6 Absolute Lymphs (auto) 0.74 L 0.96 Nucleated RBC % 0 0 Differential Comment SCANNED Atypical Lymphocytes 1+ Platelet Estimate ADEQUATE Sodium 144 Potassium 3.6 Chloride 110 H Carbon Dioxide 25.0 Anion Gap 9 BUN 24 H Creatinine 0.92 Estim Creat Clear Calc 52.64 Est GFR (MDRD) Af Amer 79 Est GFR (MDRD) Non-Af 65 BUN/Creatinine Ratio 26.2 H Glucose 108 H Calcium 8.0 L Total Bilirubin 0.50 Direct Bilirubin 0.14 AST 36 ALT 31 Alkaline Phosphatase 80 Total Protein 6.0 L Albumin 2.4 L Globulin 3.6 TSH 07/22/20 07/22/20 05:45 05:45 WBC RBC Hgb Hct MCV MCH MCHC RDW Std Deviation RDW Coeff of Brittanie Plt Count MPV Immature Gran % (Auto) Neut % (Auto) Lymph % (Auto) Harlan % (Auto) Eos % (Auto) Baso % (Auto) Absolute Neuts (auto) Absolute Lymphs (auto) Nucleated RBC % Differential Comment Atypical Lymphocytes Platelet Estimate Sodium 143 Potassium 3.1 L Chloride 107 Carbon Dioxide 27.0 Anion Gap 9 BUN 28 H Creatinine 0.96 Estim Creat Clear Calc 50.45 Est GFR (MDRD) Af Amer 75 Est GFR (MDRD) Non-Af 62 BUN/Creatinine Ratio 29.3 H Glucose 137 H Calcium 7.8 L Total Bilirubin 0.70 Direct Bilirubin 0.20 AST 40 H ALT 43 Alkaline Phosphatase 86 Total Protein 5.9 L Albumin 2.4 L Globulin 3.5 TSH 0.40 Microbiology 07/16/20 18:25 Blood Culture (Wb) - Anticubital Left Blood Culture - Final No growth in 5 days. 07/16/20 18:15 Blood Culture (Wb) - Left Forearm Blood Culture - Final No growth in 5 days. Clinical Impression(s) from Imaging Studies Chest X-Ray 07/16/20 15:58 IMPRESSION: Normal x-ray examination of the chest. Electronically Signed: Eddie Rivera DO at 16:09 EDT Tel [phone], Service support , Current Medications Acetaminophen (Acetaminophen 325 Mg Tablet) 650 mg PO Q6H PRN PRN PRN Reason: Pain Score 1-10/Temp > 100.7 F Last Admin: 07/18/20 08:41 Dose: 325 mg Documented by: Hydrocodone Bitart/Acetaminophen (Hydrocodone Bitartrate/Apap 5/325 Tablet) 1 tablet PO TID PRN PRN PRN Reason: Pain Score 1-10 Last Admin: 07/22/20 12:21 Dose: 1 tablet Documented by: Albuterol Sulfate (Albuterol Sulfate 8 Gm Inhaler (60 Puffs)) 2 puff INHALATION Q4H PRN PRN PRN Reason: SOB &/OR WHEEZING Calamine/Phenol (Menthol/Lanolin/Calamine/Znox 113 Gm Tube) 1 applic TOPICAL 0800,1400,2200 [facility]; Protocol Last Admin: 07/22/20 08:36 Dose: 1 applicatio Documented by: Dexamethasone (Dexamethasone 4 Mg Tablet) 6 mg PO DAILY [facility] Last Admin: 07/22/20 08:29 Dose: 6 mg Documented by: Enoxaparin Sodium (Enoxaparin 80 Mg/0.8 Ml Syringe) 80 mg SC DAILY [facility] Last Admin: 07/22/20 08:27 Dose: 80 mg Documented by: Furosemide (Furosemide 40 Mg/4 Ml Vial) 40 mg IV BID@1000,1800 [facility] Last Admin: 07/22/20 08:29 Dose: 40 mg Documented by: Gabapentin (Gabapentin 100 Mg Capsule) 200 mg PO TIDCM [facility] Last Admin: 07/22/20 12:09 Dose: 200 mg Documented by: Potassium Chloride/Sodium Chloride () 1,000 mls @ 60 mls/hr IV .[id number] [facility] Last Infusion: 07/22/20 09:24 Dose: 60 mls/hr Documented by: Levothyroxine Sodium (Levothyroxine 25 Mcg Tablet) 25 mcg PO DAILY [facility] Last Admin: 07/22/20 08:36 Dose: 25 mcg Documented by: Loperamide HCl (Loperamide 2 Mg Capsule) 2 mg PO Q4H PRN PRN PRN Reason: DIARRHEA/LOOSE STOOLS Last Admin: 07/22/20 03:19 Dose: 2 mg Documented by: Melatonin (Melatonin 3 Mg Tablet) 3 mg PO QHS PRN PRN PRN Reason: INSOMNIA Ondansetron HCl (Ondansetron 4 Mg/2 Ml Vial) 4 mg IV Q8H PRN PRN PRN Reason: NAUSEA/VOMITING Last Admin: 07/19/20 13:19 Dose: 4 mg Documented by: Pantoprazole Sodium (Pantoprazole Sodium 40 Mg Tablet) 40 mg PO BID [facility] Last Admin: 07/22/20 08:28 Dose: 40 mg Documented by: Potassium Chloride (Potassium Chloride 20 Meq Tablet) 40 meq PO DAILY [facility] Last Admin: 07/22/20 08:28 Dose: 40 meq Documented by: Sodium Chloride (0.9% Saline Lock 10 Ml Syringe) 10 - 40 ml IV UD PRN PRN Reason: SALINE FLUSH Last Admin: 07/21/20 17:56 Dose: 10 ml Documented by: Medical Necessity - Tobacco Use Smoking Status: Former smoker Tobacco Use: Cigarettes Assessment/Plan All Active Problems (Last Reviewed 07/16/20 @ 23:[address] Richard Gaona MD) COVID-19 (Acute) Hypoxia (Acute) Hypokalemia (Acute) Respiratory insufficiency (Acute) RECOMMENDATIONS: 1. Wean supplemental oxygen to maintain saturations at or above 90%. 2. Continue Lovenox and Decadron with plans to complete a 10-day treatment course. Remdesivir and plasma have completed. 3. Continue diuretic therapy as tolerated by hemodynamics and renal function. 4. Encourage incentive spirometer use and mobilize patient as tolerated. IMPRESSIONS: 1. Acute hypoxemic respiratory failure secondary to COVID-19 pneumonia The patient continues to be quite tenuous from a respiratory perspective with high supplemental oxygen requirement. Plan to continue Decadron and therapeutic Lovenox as ordered. The patient has already received convalescent plasma and completed a treatment course of remdesivir. Wean supplemental oxygen to maintain saturations at or above 90%. Encourage incentive spirometer use and mobilize patient as tolerated. The patient will be continued on gentle diuretic therapy as tolerated by hemodynamics and renal function. 2. Acute kidney injury/advanced age Complicates care, management, recovery and prognosis. Continue current supportive measures. This note was generated with [employer] dictation software. It may contain incorrect words, spelling, and punctuation that were not noted in checking the note before signing. Inpatient E&M: [id number] [facility] Hosp L3
[2020-07-22] MEDS: 0.9% Saline Lock 10 ML Syringe IV (16:29)
[2020-07-22] MEDS: MELATONIN 3 MG TABLET PO (20:49)
[2020-07-23] VITALS (19 sets, daily range): BP systolic 102–129; BP diastolic 57–73; PULSE 40–72; RESP 16–20; TEMP 35.8–37; O2SAT 89–94
--- NOTE | 2020-07-23 07:53 | PN_ITS ---
Patient Problems: Active and Suspected Problems (Last Reviewed 07/16/20 @ 23:[address] Richard Gaona MD) COVID-19 (Acute) Hypoxia (Acute) Hypokalemia (Acute) Respiratory insufficiency (Acute) Subjective: Patient seen and examined. She remains on airflow at 73%. She still bradycardic though she is asymptomatic. Review symptoms otherwise negative. Vitals/I&O's: Vital Signs Temp Pulse Resp BP Pulse Ox 98.6 F 48 L 20 H 129/73 H 91 07/23/20 05:53 07/23/20 05:53 07/23/20 05:53 07/23/20 05:53 07/23/20 05:53 Oxygen Flow Rate (L/min) 15 Oxygen Delivery Method Airvo Weight: 177 lb 15.984 oz Body Mass Index (BMI) 30.5 Intake and Output for Last 24 Hours 07/21/20 07/22/20 07/23/20 23:59 23:59 23:59 Intake Total 3603 / 3603 2582.00 / 2582.00 360 / 360 Output Total 6500 / 6500 1700 / 1700 350 / 350 Balance -2897 / -2897 882.00 / 882.00 General: Alert, Oriented x3, Cooperative, HEENT: Atraumatic, PERRLA, EOMI, Normocephalic Oral: Dry Mucosa Neck: Supple, No JVD, Negative Carotid Bruits Lungs: - - diminished breath sounds, on airvo Cardiovascular: Normal S1, Normal S2, No murmurs, Bradycardic Abdomen: Bowel Sounds Present, Soft, Non Tender Extremities: No clubbing, No cyanosis, No edema, Capillary Refill Less than 3 Seconds Skin: No rashes, No breakdown Musculoskeletal: No Tenderness to Palpation of Joints or Extremities Lymphatic: No Cervical, Supraclavicular, or Inguinal Adenopathy Neurological: Cranial nerves II-XII grossly intact, Neuro grossly intact, Motor Exam 5/5 strength throughout Psych/Mental Status: Normal Affect, Appropriate, Alert and oriented to time, place, person, mood and affect Microbiology Past 72 Hours 07/16/20 18:25 Blood Culture (Wb) - Anticubital Left Blood Culture - Final No growth in 5 days. 07/16/20 18:15 Blood Culture (Wb) - Left Forearm Blood Culture - Final No growth in 5 days. Laboratory Results 07/22/20 05:45: TSH 0.40 Current Medications Acetaminophen (Acetaminophen 325 Mg Tablet) 650 mg PO Q6H PRN PRN PRN Reason: Pain Score 1-10/Temp > 100.7 F Last Admin: 07/18/20 08:41 Dose: 325 mg Documented by: Hydrocodone Bitart/Acetaminophen (Hydrocodone Bitartrate/Apap 5/325 Tablet) 2 tablet PO Q4H PRN PRN PRN Reason: pain 4-10 Last Admin: 07/22/20 20:45 Dose: 1 tablet Documented by: Albuterol Sulfate (Albuterol Sulfate 8 Gm Inhaler (60 Puffs)) 2 puff INHALATION Q4H PRN PRN PRN Reason: SOB &/OR WHEEZING Calamine/Phenol (Menthol/Lanolin/Calamine/Znox 113 Gm Tube) 1 applic TOPICAL 0800,1400,2200 [facility]; Protocol Last Admin: 07/22/20 19:41 Dose: 1 applicatio Documented by: Dexamethasone (Dexamethasone 4 Mg Tablet) 6 mg PO DAILY [facility] Last Admin: 07/22/20 08:29 Dose: 6 mg Documented by: Enoxaparin Sodium (Enoxaparin 80 Mg/0.8 Ml Syringe) 80 mg SC DAILY [facility] Last Admin: 07/22/20 08:27 Dose: 80 mg Documented by: Furosemide (Furosemide 40 Mg/4 Ml Vial) 40 mg IV BID@1000,1800 [facility] Last Admin: 07/22/20 16:29 Dose: 40 mg Documented by: Gabapentin (Gabapentin 100 Mg Capsule) 200 mg PO TIDCM [facility] Last Admin: 07/22/20 16:29 Dose: 200 mg Documented by: Levothyroxine Sodium (Levothyroxine 25 Mcg Tablet) 25 mcg PO DAILY [facility] Last Admin: 07/22/20 08:36 Dose: 25 mcg Documented by: Loperamide HCl (Loperamide 2 Mg Capsule) 2 mg PO Q4H PRN PRN PRN Reason: DIARRHEA/LOOSE STOOLS Last Admin: 07/22/20 19:53 Dose: 2 mg Documented by: Melatonin (Melatonin 3 Mg Tablet) 3 mg PO QHS PRN PRN PRN Reason: INSOMNIA Last Admin: 07/22/20 20:49 Dose: 3 mg Documented by: Ondansetron HCl (Ondansetron 4 Mg/2 Ml Vial) 4 mg IV Q6H PRN PRN PRN Reason: NAUSEA/VOMITING Pantoprazole Sodium (Pantoprazole Sodium 40 Mg Tablet) 40 mg PO BID [facility] Last Admin: 07/22/20 19:38 Dose: 40 mg Documented by: Potassium Chloride (Potassium Chloride 20 Meq Tablet) 40 meq PO DAILY [facility] Last Admin: 07/22/20 08:28 Dose: 40 meq Documented by: Sodium Chloride (0.9% Saline Lock 10 Ml Syringe) 10 - 40 ml IV UD PRN PRN Reason: SALINE FLUSH Last Admin: 07/22/20 16:29 Dose: 20 ml Documented by: STROKE Vital Signs/Narrative: Vital Signs Temp Pulse Resp BP Pulse Ox 07/23/20 05:53 98.6 F 48 L 20 H 129/73 H 91 Medical Necessity - Tobacco Use Smoking Status: Former smoker Tobacco Use: Cigarettes Assessment/Plan All Active Problems (Last Reviewed 07/16/20 @ 23:[address] Richard Gaona MD) COVID-19 (Acute) Hypoxia (Acute) Hypokalemia (Acute) Respiratory insufficiency (Acute) #Acute hypoxic respiratory failure due to COVID-19 pneumonia * on Airvo * IV dexamethasone. On breathing treatments with bronchodilators. * On remdesivir. * Encourage incentive spirometry use. * received convalescent plasma * ID and pulmonology on board * in cumulative positive balance by 5.25L * on IV lasix 40mg bid * titrate oxygen to maintain sats >90% * #Bradycardia: * Still remains bradycardic. TSH WNL at 0.4 * Bradycardia could be related to her Covid infection. Discussed with back tender fourdrinier on-call. Plan is to hold off on any active intervention for now until Covid infection resolves to see if heart rate will improve or she would need further intervention. * gabapentin dose reduced to 200mg tid, per discussion with cardiology, to see if it would help with her bradycardia. * will continue to monitor * #Acute COVID-19 infection: As under management for respiratory failure #Hypomagnesemia and hypokalemia: Resolved. #JARRETT on CKD stage III: Resolved #Hypertension: Losartan held on admission due to hypotension. Continue holding and monitor. #Hypothyroidism: On Synthroid DVT prophylaxis: Lovenox Inpatient E&M: [id number] [facility] Hosp L3
[2020-07-23] MEDS: Furosemide 40 MG/4 ML Vial IV (08:42)
[2020-07-23] MEDS: dexAMETHasone 4 MG Tablet 6 MG PO (08:43)
[2020-07-23] MEDS: Pantoprazole Sodium 40 MG Tablet PO ×2 (08:43→22:15)
[2020-07-23] MEDS: Gabapentin 100 MG Capsule 200 MG PO ×3 (08:44→18:25)
[2020-07-23] MEDS: HYDROcodone Bitartrate/Apap 5/325 Tablet PO ×4 (08:44→22:15)
[2020-07-23] MEDS: Levothyroxine 25 MCG TABLET PO (08:44)
[2020-07-23] MEDS: Enoxaparin 80 MG/0.8 ML Syringe SC ×2 (08:46→22:15)
[2020-07-23 09:31] LABS: Anion Gap 9 (5-15); BUN 34 mg/dL (7-18); BUN/Creat Ratio 29.8 RATIO (10-20); Calcium,Total 8.1 mg/dL (8.5-10.1); Chloride 106 mmol/L (98-107); Creatinine, Serum 1.14 mg/dL (0.55-1.02); EST Glomerular Filtration Rate 51 mL/min (>60); Est Glom Filt Rate - Afr Amer 61 mL/min (>60); Estimated Creatinine Clearance 42.48 ml/min; Glucose 130 mg/dL (74-106); Potassium 2.9 mmol/L (3.5-5.1); Sodium Level 144 mmol/L (136-145)
--- NOTE | 2020-07-23 12:34 | PN.CARD_ITS ---
Subjectve: Patient evaluated. Appears to be doing better. Still asymptomatic. Objective: Vital Signs Temp Pulse Resp BP Pulse Ox 98.1 F 72 16 106/64 94 07/23/20 08:52 07/23/20 11:30 07/23/20 08:52 07/23/20 08:52 07/23/20 08:52 Oxygen Flow Rate (L/min) 60 Oxygen Delivery Method Airvo Weight: 177 lb 15.984 oz Body Mass Index (BMI) 30.5 Intake and Output for Last 24 Hours 07/21/20 07/22/20 07/23/20 23:59 23:59 23:59 Intake Total 3603 / 3603 2582.00 / 2582.00 360 / 360 Output Total 6500 / 6500 1700 / 1700 350 / 350 Balance -2897 / -2897 882.00 / 882.00 07/23/20 08:40: Sodium 144, Potassium 2.9 L, Chloride 106, Carbon Dioxide 29.0, Anion Gap 9, BUN 34 H, Creatinine 1.14 H, Est GFR (MDRD) Af Amer 61, Est GFR (MDRD) Non-Af 51 L, BUN/Creatinine Ratio 29.8 H, Glucose 130 H, Calcium 8.1 L Rhythm: EKG: ECHO: Stress Test: Cardiac Cath: PCI: CT Surgery: Holter monitor: EPS: PPM: CXR: Chest CT Scan: Medical Necessity - Tobacco Use Smoking Status: Former smoker Tobacco Use: Cigarettes Assessment/Plan 1. Asymptomatic sinus bradycardia. * Patient continues to do well. Has not had any symptoms. Heart rate appears to have improved. Patient is still hypokalemic and will recommend potassium replacement aggressively.Discussed with patient that at this time no intervention is needed. * Thank you kindly for allowing me to participate in the care of your patient. Please don't hesitate to call if any issues arise. Would sign of at this particular time.
--- NOTE | 2020-07-23 13:21 | PN_ITS ---
Patient Problems: Active and Suspected Problems (Last Reviewed 07/16/20 @ 23:[address] Richard Gaona MD) COVID-19 (Acute) Hypoxia (Acute) Hypokalemia (Acute) Respiratory insufficiency (Acute) Subjective: The patient was seen and examined at the bedside this morning. Events from the last 24 hours have been reviewed. The patient is currently afebrile, hemodynamically stable and maintaining appropriate oxygen saturations on Airvo heated high flow oxygen with an FiO2 requirement of 75%. Potassium is low this morning at 2.9. The patient is documented to be overall net +5.2 L for the hospital admission. The patient has already received convalescent plasma and remains on Decadron, Lovenox, and Lasix. She has completed her treatment course of remdesivir. Objective: The patient's most recent lab work, culture data and imaging studies have all been personally reviewed. Coronavirus PCR was positive on July 14. Cultures have shown no growth to date. - Physical Exam Vitals/I&O's: Vital Signs Temp Pulse Resp BP Pulse Ox 97.8 F 53 L 16 102/66 93 07/23/20 12:37 07/23/20 12:37 07/23/20 12:37 07/23/20 12:37 07/23/20 12:37 Oxygen Flow Rate (L/min) 60 Oxygen Delivery Method Airvo Weight: 177 lb 15.984 oz Body Mass Index (BMI) 30.5 Intake and Output for Last 24 Hours 07/21/20 07/22/20 07/23/20 23:59 23:59 23:59 Intake Total 3603 / 3603 2582.00 / 2582.00 360 / 360 Output Total 6500 / 6500 1700 / 1700 350 / 350 Balance -2897 / -2897 882.00 / 882.00 General: Alert, Cooperative HEENT: Atraumatic, Normocephalic Oral: No Gingival or Mucosal Lesions/ Ulcerations Neck: Supple, No Nodes, Trachea Midline Lungs: No rhonchi, No wheeze, No rales, Diminished Cardiovascular: Normal S1, Normal S2, No murmurs, Bradycardic Abdomen: Bowel Sounds Present, Soft, Non Tender Extremities: No clubbing, No cyanosis, No edema Skin: No breakdown Musculoskeletal: No Tenderness to Palpation of Joints or Extremities Lymphatic: No Cervical, Supraclavicular, or Inguinal Adenopathy Neurological: Cranial nerves II-XII grossly intact, Neuro grossly intact Psych/Mental Status: Normal Affect Labs (Last 48 Hours) 07/22/20 07/22/20 07/22/20 05:45 05:45 05:45 WBC 9.8 RBC 4.59 Hgb 13.1 Hct 39.4 MCV 85.8 MCH 28.5 MCHC 33.2 RDW Std Deviation 41.4 RDW Coeff of Brittanie 13.2 Plt Count 213 MPV 10.9 Immature Gran % (Auto) 1.500 H Neut % (Auto) 77.4 H Lymph % (Auto) 9.8 L Baldwin % (Auto) 11.1 H Eos % (Auto) 0.0 Baso % (Auto) 0.2 Absolute Neuts (auto) 7.6 Absolute Lymphs (auto) 0.96 Nucleated RBC % 0 Differential Comment SCANNED Atypical Lymphocytes 1+ Platelet Estimate ADEQUATE Sodium 143 Potassium 3.1 L Chloride 107 Carbon Dioxide 27.0 Anion Gap 9 BUN 28 H Creatinine 0.96 Estim Creat Clear Calc 50.45 Est GFR (MDRD) Af Amer 75 Est GFR (MDRD) Non-Af 62 BUN/Creatinine Ratio 29.3 H Glucose 137 H Calcium 7.8 L Total Bilirubin 0.70 Direct Bilirubin 0.20 AST 40 H ALT 43 Alkaline Phosphatase 86 Total Protein 5.9 L Albumin 2.4 L Globulin 3.5 TSH 0.40 07/23/20 08:40 WBC RBC Hgb Hct MCV MCH MCHC RDW Std Deviation RDW Coeff of Brittanie Plt Count MPV Immature Gran % (Auto) Neut % (Auto) Lymph % (Auto) Baldwin % (Auto) Eos % (Auto) Baso % (Auto) Absolute Neuts (auto) Absolute Lymphs (auto) Nucleated RBC % Differential Comment Atypical Lymphocytes Platelet Estimate Sodium 144 Potassium 2.9 L Chloride 106 Carbon Dioxide 29.0 Anion Gap 9 BUN 34 H Creatinine 1.14 H Estim Creat Clear Calc 42.48 Est GFR (MDRD) Af Amer 61 Est GFR (MDRD) Non-Af 51 L BUN/Creatinine Ratio 29.8 H Glucose 130 H Calcium 8.1 L Total Bilirubin Direct Bilirubin AST ALT Alkaline Phosphatase Total Protein Albumin Globulin TSH Microbiology 07/16/20 18:25 Blood Culture (Wb) - Anticubital Left Blood Culture - Final No growth in 5 days. 07/16/20 18:15 Blood Culture (Wb) - Left Forearm Blood Culture - Final No growth in 5 days. Clinical Impression(s) from Imaging Studies Chest X-Ray 07/16/20 15:58 IMPRESSION: Normal x-ray examination of the chest. Electronically Signed: Eddie DO Miguel at 16:09 EDT Tel [phone], Service support , Current Medications Acetaminophen (Acetaminophen 325 Mg Tablet) 650 mg PO Q6H PRN PRN PRN Reason: Pain Score 1-10/Temp > 100.7 F Last Admin: 07/18/20 08:41 Dose: 325 mg Documented by: Hydrocodone Bitart/Acetaminophen (Hydrocodone Bitartrate/Apap 5/325 Tablet) 2 tablet PO Q4H PRN PRN PRN Reason: pain 4-10 Last Admin: 07/23/20 12:35 Dose: 2 tablet Documented by: Albuterol Sulfate (Albuterol Sulfate 8 Gm Inhaler (60 Puffs)) 2 puff INHALATION Q4H PRN PRN PRN Reason: SOB &/OR WHEEZING Calamine/Phenol (Menthol/Lanolin/Calamine/Znox 113 Gm Tube) 1 applic TOPICAL 0800,1400,2200 [facility]; Protocol Last Admin: 07/23/20 08:47 Dose: Not Given Documented by: Dexamethasone (Dexamethasone 4 Mg Tablet) 6 mg PO DAILY [facility] Last Admin: 07/23/20 08:43 Dose: 6 mg Documented by: Enoxaparin Sodium (Enoxaparin 80 Mg/0.8 Ml Syringe) 80 mg SC DAILY [facility] Last Admin: 07/23/20 08:46 Dose: 80 mg Documented by: Furosemide (Furosemide 40 Mg/4 Ml Vial) 40 mg IV BID@1000,1800 [facility] Last Admin: 07/23/20 08:42 Dose: 40 mg Documented by: Gabapentin (Gabapentin 100 Mg Capsule) 200 mg PO TIDCM [facility] Last Admin: 07/23/20 12:34 Dose: 200 mg Documented by: Levothyroxine Sodium (Levothyroxine 25 Mcg Tablet) 25 mcg PO DAILY [facility] Last Admin: 07/23/20 08:44 Dose: 25 mcg Documented by: Loperamide HCl (Loperamide 2 Mg Capsule) 2 mg PO Q4H PRN PRN PRN Reason: DIARRHEA/LOOSE STOOLS Last Admin: 07/22/20 19:53 Dose: 2 mg Documented by: Melatonin (Melatonin 3 Mg Tablet) 3 mg PO QHS PRN PRN PRN Reason: INSOMNIA Last Admin: 07/22/20 20:49 Dose: 3 mg Documented by: Ondansetron HCl (Ondansetron 4 Mg/2 Ml Vial) 4 mg IV Q6H PRN PRN PRN Reason: NAUSEA/VOMITING Pantoprazole Sodium (Pantoprazole Sodium 40 Mg Tablet) 40 mg PO BID [facility] Last Admin: 07/23/20 08:43 Dose: 40 mg Documented by: Potassium Chloride (Potassium Chloride 20 Meq Tablet) [facility] Sodium Chloride (0.9% Saline Lock 10 Ml Syringe) 10 - 40 ml IV UD PRN PRN Reason: SALINE FLUSH Last Admin: 07/22/20 16:29 Dose: 20 ml Documented by: Medical Necessity - Tobacco Use Smoking Status: Former smoker Tobacco Use: Cigarettes Assessment/Plan All Active Problems (Last Reviewed 07/16/20 @ 23:[address] Richard Gaona MD) COVID-19 (Acute) Hypoxia (Acute) Hypokalemia (Acute) Respiratory insufficiency (Acute) RECOMMENDATIONS: 1. Wean supplemental oxygen to maintain saturations at or above 90%. 2. Continue Lovenox and Decadron with plans to complete a 10-day treatment course. Remdesivir and plasma have completed. 3. Continue diuretic therapy as tolerated by hemodynamics and renal function. Will decrease Lasix to once daily. 4. Encourage incentive spirometer use and mobilize patient as tolerated. 5. Potassium repletion as ordered. IMPRESSIONS: 1. Acute hypoxemic respiratory failure secondary to COVID-19 pneumonia The patient continues to be quite tenuous from a respiratory perspective with high supplemental oxygen requirement. Plan to continue Decadron and therapeutic Lovenox as ordered. The patient has already received convalescent plasma and completed a treatment course of remdesivir. Wean supplemental oxygen to maintain saturations at or above 90%. Encourage incentive spirometer use and mobilize patient as tolerated. The patient will be continued on gentle diuretic therapy as tolerated by hemodynamics and renal function. 2. Hypokalemia Aggressive electrolyte repletion. Recheck levels in the morning. 3. Acute kidney injury/advanced age Complicates care, management, recovery and prognosis. Continue current supportive measures. This note was generated with [employer] dictation software. It may contain incorrect words, spelling, and punctuation that were not noted in checking the note before signing. Inpatient E&M: [id number] [facility] H[facility] L3
--- NOTE | 2020-07-23 16:20 | PCM.PN.ID ---
Patient Problems: Active and Suspected Problems (Last Reviewed 07/16/20 @ 23:[address] Richard Gaona MD) COVID-19 (Acute) Hypoxia (Acute) Hypokalemia (Acute) Respiratory insufficiency (Acute) Subjective: Starting to feel better today. No fever, aches, or n/v/d - Physical Exam Vitals/I&O's: Vital Signs Temp Pulse Resp BP Pulse Ox 98 F 55 L 16 110/70 92 07/23/20 15:09 07/23/20 15:09 07/23/20 15:09 07/23/20 15:09 07/23/20 15:09 Oxygen Flow Rate (L/min) 60 Oxygen Delivery Method Airvo Weight: 80.739 kg Body Mass Index (BMI) 30.5 Intake and Output for Last 24 Hours 07/21/20 07/22/20 07/23/20 23:59 23:59 23:59 Intake Total 3603 / 3603 2582.00 / 2582.00 840 / 840 Output Total 6500 / 6500 1700 / 1700 350 / 350 Balance -2897 / -2897 882.00 / 882.00 490 / 490 General: Alert, Cooperative, No apparent distress Lungs: Clear to auscultation, Diminished Cardiovascular: Regular rate, Regular Rhythm Abdomen: Soft, Non Tender, Non-Distended Skin: No rashes Microbiology Past 72 Hours 07/16/20 18:25 Blood Culture (Wb) - Anticubital Left Blood Culture - Final No growth in 5 days. 07/16/20 18:15 Blood Culture (Wb) - Left Forearm Blood Culture - Final No growth in 5 days. Laboratory Results 07/23/20 08:40: Sodium 144, Potassium 2.9 L, Chloride 106, Carbon Dioxide 29.0, Anion Gap 9, BUN 34 H, Creatinine 1.14 H, Estim Creat Clear Calc 42.48, Est GFR (MDRD) Af Amer 61, Est GFR (MDRD) Non-Af 51 L, BUN/Creatinine Ratio 29.8 H, Glucose 130 H, Calcium 8.1 L Current Medications Acetaminophen (Acetaminophen 325 Mg Tablet) 650 mg PO Q6H PRN PRN PRN Reason: Pain Score 1-10/Temp > 100.7 F Last Admin: 07/18/20 08:41 Dose: 325 mg Documented by: Hydrocodone Bitart/Acetaminophen (Hydrocodone Bitartrate/Apap 5/325 Tablet) 2 tablet PO Q4H PRN PRN PRN Reason: pain 4-10 Last Admin: 07/23/20 12:35 Dose: 2 tablet Documented by: Albuterol Sulfate (Albuterol Sulfate 8 Gm Inhaler (60 Puffs)) 2 puff INHALATION Q4H PRN PRN PRN Reason: SOB &/OR WHEEZING Calamine/Phenol (Menthol/Lanolin/Calamine/Znox 113 Gm Tube) 1 applic TOPICAL 0800,1400,2200 [facility]; Protocol Last Admin: 07/23/20 14:11 Dose: Not Given Documented by: Dexamethasone (Dexamethasone 4 Mg Tablet) 6 mg PO DAILY [facility] Last Admin: 07/23/20 08:43 Dose: 6 mg Documented by: Enoxaparin Sodium (Enoxaparin 80 Mg/0.8 Ml Syringe) 80 mg SC BID [facility] Furosemide (Furosemide 40 Mg/4 Ml Vial) 40 mg IV DAILY [facility] Gabapentin (Gabapentin 100 Mg Capsule) 200 mg PO TIDCM [facility] Last Admin: 07/23/20 12:34 Dose: 200 mg Documented by: Levothyroxine Sodium (Levothyroxine 25 Mcg Tablet) 25 mcg PO DAILY [facility] Last Admin: 07/23/20 08:44 Dose: 25 mcg Documented by: Loperamide HCl (Loperamide 2 Mg Capsule) 2 mg PO Q4H PRN PRN PRN Reason: DIARRHEA/LOOSE STOOLS Last Admin: 07/22/20 19:53 Dose: 2 mg Documented by: Melatonin (Melatonin 3 Mg Tablet) 3 mg PO QHS PRN PRN PRN Reason: INSOMNIA Last Admin: 07/22/20 20:49 Dose: 3 mg Documented by: Ondansetron HCl (Ondansetron 4 Mg/2 Ml Vial) 4 mg IV Q6H PRN PRN PRN Reason: NAUSEA/VOMITING Pantoprazole Sodium (Pantoprazole Sodium 40 Mg Tablet) 40 mg PO BID [facility] Last Admin: 07/23/20 08:43 Dose: 40 mg Documented by: Potassium Chloride (Potassium [facility] 20 [facility] Sodium Chloride (0.9% Saline Lock 10 Ml Syringe) 10 - 40 ml IV UD PRN PRN Reason: SALINE FLUSH Last Admin: 07/22/20 16:29 Dose: 20 ml Documented by: Medical Necessity - Tobacco Use Smoking Status: Former smoker Tobacco Use: Cigarettes Route of nutrition/ use of supplements: [] Nutritional Intake: [] IV Site: [] Gr Catheter: [] - Assessment/Plan Antibiotics: [] Assessment/Plan: [] Active and Suspected Problems (Last Reviewed 07/16/20 @ 23:[address] Richard Gaona MD) COVID-19 (Acute) Hypoxia (Acute) Hypokalemia (Acute) Respiratory insufficiency (Acute) On dex, completed remdesivir. Got plasma 07/19. Feeling better, still high O2 reqs Will follow
[2020-07-23] MEDS: NYSTATIN 500,000 UNIT/5 ML UDC 500000 UNIT PO (22:15)
[2020-07-23] MEDS: MELATONIN 3 MG TABLET PO (22:15)
[2020-07-24] VITALS (20 sets, daily range): BP systolic 107–130; BP diastolic 64–83; PULSE 40–57; RESP 16–21; TEMP 36–37.2; O2SAT 83–94
[2020-07-24] MEDS: HYDROcodone Bitartrate/Apap 5/325 Tablet PO ×3 (06:21→19:58)
--- NOTE | 2020-07-24 07:00 | CPS ---
patient on Airvo
--- NOTE | 2020-07-24 07:57 | PN_ITS ---
Patient Problems: Active and Suspected Problems (Last Reviewed 07/16/20 @ 23:[address] Richard Gaona MD) COVID-19 (Acute) Hypoxia (Acute) Hypokalemia (Acute) Respiratory insufficiency (Acute) Subjective: Patient seen and examined. She remains on AirVo on 55 L at 82% FiO2. Still bradycardic but asymptomatic. Review of symptoms otherwise negative. Vitals/I&O's: Vital Signs Temp Pulse Resp BP Pulse Ox 96.8 F L 41 L 16 115/71 94 07/24/20 06:00 07/24/20 07:01 07/24/20 06:00 07/24/20 06:00 07/24/20 06:00 Oxygen Flow Rate (L/min) 55 Oxygen Delivery Method Airvo Weight: 177 lb 15.984 oz Body Mass Index (BMI) 30.5 Intake and Output for Last 24 Hours 07/22/20 07/23/20 07/24/20 23:59 23:59 23:59 Intake Total 2582.00 / 2582.00 1080 / 1080 240 / 240 Output Total 1700 / 1700 350 / 350 Balance 882.00 / 882.00 730 / 730 240 / 240 General: Alert, Oriented x3, Cooperative, HEENT: Atraumatic, PERRLA, EOMI, Normocephalic Oral: Dry Mucosa Neck: Supple, No JVD, Negative Carotid Bruits Lungs: - - diminished breath sounds, on airvo Cardiovascular: Normal S1, Normal S2, No murmurs, Bradycardic Abdomen: Bowel Sounds Present, Soft, Non Tender Extremities: No clubbing, No cyanosis, No edema, Capillary Refill Less than 3 Seconds Skin: No rashes, No breakdown Musculoskeletal: No Tenderness to Palpation of Joints or Extremities Lymphatic: No Cervical, Supraclavicular, or Inguinal Adenopathy Neurological: Cranial nerves II-XII grossly intact, Neuro grossly intact, Motor Exam 5/5 strength throughout Psych/Mental Status: Normal Affect, Appropriate, Alert and oriented to time, place, person, mood and affect Microbiology Past 72 Hours 07/16/20 18:25 Blood Culture (Wb) - Anticubital Left Blood Culture - Final No growth in 5 days. 07/16/20 18:15 Blood Culture (Wb) - Left Forearm Blood Culture - Final No growth in 5 days. Laboratory Results 07/23/20 08:40: Sodium 144, Potassium 2.9 L, Chloride 106, Carbon Dioxide 29.0, Anion Gap 9, BUN 34 H, Creatinine 1.14 H, Estim Creat Clear Calc 42.48, Est GFR (MDRD) Af Amer 61, Est GFR (MDRD) Non-Af 51 L, BUN/Creatinine Ratio 29.8 H, Glucose 130 H, Calcium 8.1 L Current Medications Acetaminophen (Acetaminophen 325 Mg Tablet) 650 mg PO Q6H PRN PRN PRN Reason: Pain Score 1-10/Temp > 100.7 F Last Admin: 07/18/20 08:41 Dose: 325 mg Documented by: Hydrocodone Bitart/Acetaminophen (Hydrocodone Bitartrate/Apap 5/325 Tablet) 2 tablet PO Q4H PRN PRN PRN Reason: pain 4-10 Last Admin: 07/24/20 06:21 Dose: 2 tablet Documented by: Albuterol Sulfate (Albuterol Sulfate 8 Gm Inhaler (60 Puffs)) 2 puff INHALATION Q4H PRN PRN PRN Reason: SOB &/OR WHEEZING Calamine/Phenol (Menthol/Lanolin/Calamine/Znox 113 Gm Tube) 1 applic TOPICAL 0800,1400,2200 [facility]; Protocol Last Admin: 07/23/20 22:15 Dose: Not Given Documented by: Dexamethasone (Dexamethasone 4 Mg Tablet) 6 mg PO DAILY [facility] Last Admin: 07/23/20 08:43 Dose: 6 mg Documented by: Enoxaparin Sodium (Enoxaparin 80 Mg/0.8 Ml Syringe) 80 mg SC BID [facility] Last Admin: 07/23/20 22:15 Dose: 80 mg Documented by: Furosemide (Furosemide 40 Mg/4 Ml Vial) 40 mg IV DAILY [facility] Gabapentin (Gabapentin 100 Mg Capsule) 200 mg PO TIDCM [facility] Last Admin: 07/23/20 18:25 Dose: 200 mg Documented by: Levothyroxine Sodium (Levothyroxine 25 Mcg Tablet) 25 mcg PO DAILY [facility] Last Admin: 07/23/20 08:44 Dose: 25 mcg Documented by: Loperamide HCl (Loperamide 2 Mg Capsule) 2 mg PO Q4H PRN PRN PRN Reason: DIARRHEA/LOOSE STOOLS Last Admin: 07/22/20 19:53 Dose: 2 mg Documented by: Melatonin (Melatonin 3 Mg Tablet) 3 mg PO QHS PRN PRN PRN Reason: INSOMNIA Last Admin: 07/23/20 22:15 Dose: 3 mg Documented by: Nystatin (Nystatin 500,000 Unit/5 Ml Udc) 500,000 unit PO 4X/DAY [facility] Last Admin: 07/23/20 22:15 Dose: 500,000 unit Documented by: Ondansetron HCl (Ondansetron 4 Mg/2 Ml Vial) 4 mg IV Q6H PRN PRN PRN Reason: NAUSEA/VOMITING Pantoprazole Sodium (Pantoprazole Sodium 40 Mg Tablet) 40 mg PO BID [facility] Last Admin: 07/23/20 22:15 Dose: 40 mg Documented by: Potassium Chloride (Potassium Chloride 20 Meq Tablet) 40 meq PO BIDCM [facility] Last Admin: 07/23/20 18:24 Dose: 40 meq Documented by: Sodium Chloride (0.9% Saline Lock 10 Ml Syringe) 10 - 40 ml IV UD PRN PRN Reason: SALINE FLUSH Last Admin: 07/22/20 16:29 Dose: 20 ml Documented by: STROKE Vital Signs/Narrative: Vital Signs Temp Pulse Resp BP Pulse Ox 07/24/20 07:01 41 L 07/24/20 06:00 96.8 F L 51 L 16 115/71 94 Medical Necessity - Tobacco Use Smoking Status: Former smoker Tobacco Use: Cigarettes Assessment/Plan All Active Problems (Last Reviewed 07/16/20 @ 23:[address] Richard Gaona MD) COVID-19 (Acute) Hypoxia (Acute) Hypokalemia (Acute) Respiratory insufficiency (Acute) #Acute hypoxic respiratory failure due to COVID-19 pneumonia * on Airvo * IV dexamethasone. On breathing treatments with bronchodilators. * On remdesivir. * Encourage incentive spirometry use. * received convalescent plasma * ID and pulmonology on board * in cumulative positive balance by 6.21L * on IV lasix 40mg bid * titrate oxygen to maintain sats >90% * #Bradycardia: * Still remains bradycardic. TSH WNL at 0.4 * Bradycardia could be related to her Covid infection. * gabapentin dose reduced to 200mg tid, per discussion with cardiology, to see if it would help with her bradycardia. * will continue to monitor. cardiology on board; advocate conservative management now * #Acute COVID-19 infection: As under management for respiratory failure #Hypomagnesemia and hypokalemia: K is pending today. Was 2.9 yesterday and was replaced aggressively #JARRETT on CKD stage III: Resolved #Hypertension: Losartan held on admission due to hypotension. Continue holding and monitor. #Hypothyroidism: On Synthroid DVT prophylaxis: Lovenox Inpatient E&M: 94115 [facility] Hosp L3
[2020-07-24 09:14] LABS: Absolute Lymphocyte Count 1.47 X10^3/uL (0.83-4.51); Absolute Neutrophil Count 8.1 X10^3/uL (2.0-7.7); Basophil# 0.02 X10^3/uL; Basophil% 0.2 % (0-1); Eosinophil# 0.01 X10^3/uL; Eosinophils% 0.1 % (0-5); Hematocrit 40.5 % (37-47); Hemoglobin 13.5 g/dL (12.0-15.0); Lymphocyte # 1.47 X10^3/ul (4.0); Lymphocyte % 13.5 % (19-41); Mean Corp Hgb Conc 33.3 g/dL (32-36); Mean Corpuscular Hgb 28.4 pg (27.0-32.0); Mean Corpuscular Volume 85.1 fL (81-99); Mean Platelet Vol. 10.9 fl (6.2-12.0); Monocyte# 0.83 X10^3/uL; Monocyte% 7.6 % (0-10); NRBC Flagged by Analyzer 0 % (0-5); Neutrophil # 8.09 X10^3/uL (2.7-7.7); Neutrophil % 74.2 % (47-70); POSITIVE MORPHOLOGY YES; Platelet Count 204 K/mm3 (150-450); RBC Distribution Width CV 13.2 % (11.6-14.6); RBC Distribution Width SD 41.7 fl (35.1-43.9); Red Blood Count 4.76 M/mm3 (4.2-5.4); White Blood Count 10.9 K/mm3 (4.4-11.0)
[2020-07-24 09:27] LABS: Differential Indicated SCAN CRITERIA MET
[2020-07-24 09:36] LABS: Anion Gap 6 (5-15); BUN 34 mg/dL (7-18); BUN/Creat Ratio 33.3 RATIO (10-20); Calcium,Total 8.3 mg/dL (8.5-10.1); Chloride 109 mmol/L (98-107); Creatinine, Serum 1.02 mg/dL (0.55-1.02); EST Glomerular Filtration Rate 58 mL/min (>60); Est Glom Filt Rate - Afr Amer 70 mL/min (>60); Estimated Creatinine Clearance 47.48 ml/min; Glucose 121 mg/dL (74-106); Magnesium 1.6 mg/dL (1.6-2.6); Potassium 3.5 mmol/L (3.5-5.1); Sodium Level 143 mmol/L (136-145)
[2020-07-24] MEDS: Furosemide 40 MG/4 ML Vial IV (09:38)
[2020-07-24] MEDS: Enoxaparin 80 MG/0.8 ML Syringe SC ×2 (09:38→19:58)
[2020-07-24] MEDS: 0.9% Saline Lock 10 ML Syringe IV (09:38)
[2020-07-24] MEDS: Levothyroxine 25 MCG TABLET PO (09:39)
[2020-07-24] MEDS: Pantoprazole Sodium 40 MG Tablet PO ×2 (09:39→19:58)
[2020-07-24] MEDS: Gabapentin 100 MG Capsule 200 MG PO ×3 (09:39→17:04)
[2020-07-24] MEDS: NYSTATIN 500,000 UNIT/5 ML UDC 500000 UNIT PO ×4 (09:39→19:58)
[2020-07-24] MEDS: dexAMETHasone 4 MG Tablet 6 MG PO (09:39)
[2020-07-24 10:07] LABS: Platelet Estimate ADEQUATE (ADEQ); Red Cell Morphology NORM C+C NORMAL (NORM C&C)
--- NOTE | 2020-07-24 13:52 | CPS ---
patient on Airvo
--- NOTE | 2020-07-24 16:23 | CPS ---
water changed on airvo
[2020-07-24] MEDS: MELATONIN 3 MG TABLET PO (19:58)
[2020-07-25] VITALS (18 sets, daily range): BP systolic 104–142; BP diastolic 55–75; PULSE 37–60; RESP 17–28; TEMP 36.3–37.1; O2SAT 90–95
[2020-07-25] MEDS: HYDROcodone Bitartrate/Apap 5/325 Tablet PO ×4 (00:04→23:17)
[2020-07-25] MEDS: 0.9% Saline Lock 10 ML Syringe IV ×2 (04:24→08:55)
[2020-07-25] MEDS: Furosemide 40 MG/4 ML Vial IV ×2 (04:24→08:54)
[2020-07-25 06:19] LABS: Absolute Lymphocyte Count 1.16 X10^3/uL (0.83-4.51); Absolute Neutrophil Count 8.7 X10^3/uL (2.0-7.7); Basophil# 0.03 X10^3/uL; Basophil% 0.3 % (0-1); Eosinophil# 0.02 X10^3/uL; Eosinophils% 0.2 % (0-5); Hematocrit 47.2 % (37-47); Hemoglobin 15.3 g/dL (12.0-15.0); Lymphocyte # 1.16 X10^3/ul (4.0); Lymphocyte % 10.6 % (19-41); Mean Corp Hgb Conc 32.4 g/dL (32-36); Mean Corpuscular Hgb 27.9 pg (27.0-32.0); Mean Corpuscular Volume 86.1 fL (81-99); Mean Platelet Vol. 11.2 fl (6.2-12.0); Monocyte# 0.54 X10^3/uL; Monocyte% 4.9 % (0-10); NRBC Flagged by Analyzer 0 % (0-5); Neutrophil # 8.71 X10^3/uL (2.7-7.7); Neutrophil % 79.8 % (47-70); Platelet Count 262 K/mm3 (150-450); RBC Distribution Width CV 13.3 % (11.6-14.6); RBC Distribution Width SD 41.7 fl (35.1-43.9); Red Blood Count 5.48 M/mm3 (4.2-5.4); White Blood Count 10.9 K/mm3 (4.4-11.0)
[2020-07-25 06:48] LABS: Anion Gap 7 (5-15); BUN 30 mg/dL (7-18); BUN/Creat Ratio 29.4 RATIO (10-20); Calcium,Total 8.9 mg/dL (8.5-10.1); Chloride 106 mmol/L (98-107); Creatinine, Serum 1.02 mg/dL (0.55-1.02); EST Glomerular Filtration Rate 58 mL/min (>60); Est Glom Filt Rate - Afr Amer 70 mL/min (>60); Estimated Creatinine Clearance 47.48 ml/min; Glucose 110 mg/dL (74-106); Sodium Level 139 mmol/L (136-145)
--- NOTE | 2020-07-25 07:17 | PCM.PN.PUL ---
Patient Problems: Active and Suspected Problems (Last Reviewed 07/16/20 @ 23:[address] Richard Gaona MD) COVID-19 (Acute) Hypoxia (Acute) Hypokalemia (Acute) Respiratory insufficiency (Acute) Subjective: The patient was seen and examined at the bedside this morning. Events from the last 24 hours have been reviewed. The patient is currently afebrile, hemodynamically stable and maintaining appropriate oxygen saturations on Airvo heated high flow with an FiO2 requirement of 86% and flow rate of 55 L/min. The patient has already received convalescent plasma and remains on Decadron, Lovenox, and Lasix. She has completed her treatment course of remdesivir. The patient is currently documented to be overall net +5.4 L for the hospital admission. Objective: The patient's most recent lab work, culture data and imaging studies have all been personally reviewed. Coronavirus PCR was positive on July 14. Cultures have shown no growth to date. - Physical Exam Vitals/I&O's: Vital Signs Temp Pulse Resp BP Pulse Ox 98.7 F 51 L 18 118/71 93 07/25/20 05:56 07/25/20 05:56 07/25/20 05:56 07/25/20 05:56 07/25/20 05:56 Oxygen Flow Rate (L/min) 55 Oxygen Delivery Method Airvo Weight: 177 lb 15.984 oz Body Mass Index (BMI) 30.5 Intake and Output for Last 24 Hours 07/23/20 07/24/20 07/25/20 23:59 23:59 23:59 Intake Total 1080 / 1080 920 / 1400 540 / 540 Output Total 350 / 350 1050 / 1050 950 / 950 Balance 730 / 730 -130 / 350 -410 / -410 General: Alert, Cooperative, No apparent distress HEENT: Atraumatic, Normocephalic Oral: No Gingival or Mucosal Lesions/ Ulcerations Neck: Supple, No Nodes, Trachea Midline Lungs: No rhonchi, No wheeze, No rales, Diminished Cardiovascular: Normal S1, Normal S2, Bradycardic Abdomen: Bowel Sounds Present, Soft, Non Tender Extremities: No clubbing, No cyanosis, No edema Skin: No breakdown Musculoskeletal: No Tenderness to Palpation of Joints or Extremities Lymphatic: No Cervical, Supraclavicular, or Inguinal Adenopathy Neurological: Cranial nerves II-XII grossly intact, Neuro grossly intact Psych/Mental Status: Normal Affect, Appropriate Labs (Last 48 Hours) 07/23/20 07/24/20 07/24/20 08:40 08:37 08:37 WBC 10.9 RBC 4.76 Hgb 13.5 Hct 40.5 MCV 85.1 MCH 28.4 MCHC 33.3 RDW Std Deviation 41.7 RDW Coeff of Brittanie 13.2 Plt Count 204 MPV 10.9 Immature Gran % (Auto) 4.400 H Neut % (Auto) 74.2 H Lymph % (Auto) 13.5 L Bremer % (Auto) 7.6 Eos % (Auto) 0.1 Baso % (Auto) 0.2 Absolute Neuts (auto) 8.1 H Absolute Lymphs (auto) 1.47 Nucleated RBC % 0 Platelet Estimate ADEQUATE RBC Morphology NORM C+C Sodium 144 143 Potassium 2.9 L 3.5 Chloride 106 109 H Carbon Dioxide 29.0 28.0 Anion Gap 9 6 BUN 34 H 34 H Creatinine 1.14 H 1.02 Estim Creat Clear Calc 42.48 47.48 Est GFR (MDRD) Af Amer 61 70 Est GFR (MDRD) Non-Af 51 L 58 L BUN/Creatinine Ratio 29.8 H 33.3 H Glucose 130 H 121 H Calcium 8.1 L 8.3 L Magnesium 1.6 07/25/20 07/25/20 05:42 05:42 WBC 10.9 RBC 5.48 H Hgb 15.3 H Hct 47.2 H MCV 86.1 MCH 27.9 MCHC 32.4 RDW Std Deviation 41.7 RDW Coeff of Brittanie 13.3 Plt Count 262 MPV 11.2 Immature Gran % (Auto) 4.200 H Neut % (Auto) 79.8 H Lymph % (Auto) 10.6 L Bremer % (Auto) 4.9 Eos % (Auto) 0.2 Baso % (Auto) 0.3 Absolute Neuts (auto) 8.7 H Absolute Lymphs (auto) 1.16 Nucleated RBC % 0 Platelet Estimate RBC Morphology Sodium 139 Potassium 4.0 Chloride 106 Carbon Dioxide 26.0 Anion Gap 7 BUN 30 H Creatinine 1.02 Estim Creat Clear Calc 47.48 Est GFR (MDRD) Af Amer 70 Est GFR (MDRD) Non-Af 58 L BUN/Creatinine Ratio 29.4 H Glucose 110 H Calcium 8.9 Magnesium Clinical Impression(s) from Imaging Studies Chest X-Ray 07/16/20 15:58 IMPRESSION: Normal x-ray examination of the chest. Electronically Signed: Eddie Rivera DO at 16:09 EDT Tel [phone], Service support , Current Medications Acetaminophen (Acetaminophen 325 Mg Tablet) 650 mg PO Q6H PRN PRN PRN Reason: Pain Score 1-10/Temp > 100.7 F Last Admin: 07/18/20 08:41 Dose: 325 mg Documented by: Hydrocodone Bitart/Acetaminophen (Hydrocodone Bitartrate/Apap 5/325 Tablet) 2 tablet PO Q4H PRN PRN PRN Reason: pain 4-10 Last Admin: 07/25/20 00:04 Dose: 2 tablet Documented by: Albuterol Sulfate (Albuterol Sulfate 8 Gm Inhaler (60 Puffs)) 2 puff INHALATION Q4H PRN PRN PRN Reason: SOB &/OR WHEEZING Dexamethasone (Dexamethasone 4 Mg Tablet) 6 mg PO DAILY [facility] Last Admin: 07/24/20 09:39 Dose: 6 mg Documented by: Enoxaparin Sodium (Enoxaparin 80 Mg/0.8 Ml Syringe) 80 mg SC BID [facility] Last Admin: 07/24/20 19:58 Dose: 80 mg Documented by: Furosemide (Furosemide 40 Mg/4 Ml Vial) 40 mg IV DAILY [facility] Last Admin: 07/24/20 09:38 Dose: 40 mg Documented by: Gabapentin (Gabapentin 100 Mg Capsule) 200 mg PO TIDCM [facility] Last Admin: 07/24/20 17:04 Dose: 200 mg Documented by: Levothyroxine Sodium (Levothyroxine 25 Mcg Tablet) 25 mcg PO DAILY [facility] Last Admin: 07/24/20 09:39 Dose: 25 mcg Documented by: Loperamide HCl (Loperamide 2 Mg Capsule) 2 mg PO Q4H PRN PRN PRN Reason: DIARRHEA/LOOSE STOOLS Last Admin: 07/22/20 19:53 Dose: 2 mg Documented by: Lorazepam (Lorazepam 2 Mg/Ml Syringe) 1 mg IV Q4H PRN PRN PRN Reason: agitation/anxiety with BIPAP Melatonin (Melatonin 3 Mg Tablet) 3 mg PO QHS PRN PRN PRN Reason: INSOMNIA Last Admin: 07/24/20 19:58 Dose: 3 mg Documented by: Nystatin (Nystatin 500,000 Unit/5 Ml Udc) 500,000 unit PO 4X/DAY [facility] Last Admin: 07/24/20 19:58 Dose: 500,000 unit Documented by: Ondansetron HCl (Ondansetron 4 Mg/2 Ml Vial) 4 mg IV Q6H PRN PRN PRN Reason: NAUSEA/VOMITING Pantoprazole Sodium (Pantoprazole Sodium 40 Mg Tablet) 40 mg PO BID [facility] Last Admin: 07/24/20 19:58 Dose: 40 mg Documented by: Potassium Chloride (Potassium Chloride 20 Meq Tablet) 40 meq PO BIDCM [facility] Last Admin: 07/24/20 17:04 Dose: 40 meq Documented by: Sodium Chloride (0.9% Saline Lock 10 Ml Syringe) 10 - 40 ml IV UD PRN PRN Reason: SALINE FLUSH Last Admin: 07/25/20 04:24 Dose: 10 ml Documented by: Medical Necessity - Tobacco Use Smoking Status: Former smoker Tobacco Use: Cigarettes Assessment/Plan All Active Problems (Last Reviewed 07/16/20 @ 23:[address] Richard Gaona MD) COVID-19 (Acute) Hypoxia (Acute) Hypokalemia (Acute) Respiratory insufficiency (Acute) RECOMMENDATIONS: 1. Wean supplemental oxygen to maintain saturations at or above 90%. 2. Continue Lovenox and Decadron with plans to complete a 10-day treatment course. Remdesivir and plasma have completed. 3. Continue diuretic therapy as tolerated by hemodynamics and renal function. 4. Encourage incentive spirometer use and mobilize patient as tolerated. IMPRESSIONS: 1. Acute hypoxemic respiratory failure secondary to COVID-19 pneumonia The patient continues to be quite tenuous from a respiratory perspective with high supplemental oxygen requirement. Plan to continue Decadron and therapeutic Lovenox as ordered. The patient has already received convalescent plasma and completed a treatment course of remdesivir. Wean supplemental oxygen to maintain saturations at or above 90%. Encourage incentive spirometer use and mobilize patient as tolerated. The patient will be continued on gentle diuretic therapy as tolerated by hemodynamics and renal function. 2. Acute kidney injury/advanced age Complicates care, management, recovery and prognosis. Continue current supportive measures. This note was generated with [employer] software. It may contain incorrect words, spelling, and punctuation that were not noted in checking the note before signing. Inpatient E&M: 50223 Subs Hosp L3
--- NOTE | 2020-07-25 07:50 | PN_ITS ---
Patient Problems: Active and Suspected Problems (Last Reviewed 07/16/20 @ 23:[address] Richard Gaona MD) COVID-19 (Acute) Hypoxia (Acute) Hypokalemia (Acute) Respiratory insufficiency (Acute) Subjective: Patient seen and examined. She has no complaints and think she is feeling better. She remains on 55 L of oxygen by high flow nasal cannula AirVo. Review of symptoms otherwise negative. She is in cumulative positive balance by 5.4 L. Vitals/I&O's: Vital Signs Temp Pulse Resp BP Pulse Ox 98.7 F 42 L 18 118/71 93 07/25/20 05:56 07/25/20 07:06 07/25/20 05:56 07/25/20 05:56 07/25/20 05:56 Oxygen Flow Rate (L/min) 55 Oxygen Delivery Method Airvo Weight: 177 lb 15.984 oz Body Mass Index (BMI) 30.5 Intake and Output for Last 24 Hours 07/23/20 07/24/20 07/25/20 23:59 23:59 23:59 Intake Total 1080 / 1080 920 / 1400 540 / 540 Output Total 350 / 350 1050 / 1050 950 / 950 Balance 730 / 730 -130 / 350 -410 / -410 General: Alert, Oriented x3, Cooperative, HEENT: Atraumatic, PERRLA, EOMI, Normocephalic Oral: Dry Mucosa Neck: Supple, No JVD, Negative Carotid Bruits Lungs: - - diminished breath sounds, on airvo Cardiovascular: Normal S1, Normal S2, No murmurs, Bradycardic Abdomen: Bowel Sounds Present, Soft, Non Tender Extremities: No clubbing, No cyanosis, No edema, Capillary Refill Less than 3 Seconds Skin: No rashes, No breakdown Musculoskeletal: No Tenderness to Palpation of Joints or Extremities Lymphatic: No Cervical, Supraclavicular, or Inguinal Adenopathy Neurological: Cranial nerves II-XII grossly intact, Neuro grossly intact, Motor Exam 5/5 strength throughout Psych/Mental Status: Normal Affect, Appropriate, Alert and oriented to time, place, person, mood and affect Microbiology Past 72 Hours 07/16/20 18:25 Blood Culture (Wb) - Anticubital Left Blood Culture - Final No growth in 5 days. 07/16/20 18:15 Blood Culture (Wb) - Left Forearm Blood Culture - Final No growth in 5 days. Laboratory Results 07/24/20 08:37: Sodium 143, Potassium 3.5, Chloride 109 H, Carbon Dioxide 28.0, Anion Gap 6, BUN 34 H, Creatinine 1.02, Estim Creat Clear Calc 47.48, Est GFR (MDRD) Af Amer 70, Est GFR (MDRD) Non-Af 58 L, BUN/Creatinine Ratio 33.3 H, Glucose 121 H, Calcium 8.3 L, Magnesium 1.6 07/24/20 08:37: WBC 10.9, RBC 4.76, Hgb 13.5, Hct 40.5, MCV 85.1, MCH 28.4, MCHC 33.3, RDW Std Deviation 41.7, RDW Coeff of Brittanie 13.2, Plt Count 204, MPV 10.9, Immature Gran % (Auto) 4.400 H, Neut % (Auto) 74.2 H, Lymph % (Auto) 13.5 L, [place] % (Auto) 7.6, Eos % (Auto) 0.1, Baso % (Auto) 0.2, Absolute Neuts (auto) 8.1 H, Absolute Lymphs (auto) 1.47, Nucleated RBC % 0, Platelet Estimate ADEQUATE, RBC Morphology NORM C+C 07/25/20 05:42: Sodium 139, Potassium 4.0, Chloride 106, Carbon Dioxide 26.0, Anion Gap 7, BUN 30 H, Creatinine 1.02, Estim Creat Clear Calc 47.48, Est GFR (MDRD) Af Amer 70, Est GFR (MDRD) Non-Af 58 L, BUN/Creatinine Ratio 29.4 H, Glucose 110 H, Calcium 8.9 07/25/20 05:42: WBC 10.9, RBC 5.48 H, Hgb 15.3 H, Hct 47.2 H, MCV 86.1, MCH 27.9, MCHC 32.4, RDW Std Deviation 41.7, RDW Coeff of Brittanie 13.3, Plt Count 262, MPV 11.2, Immature Gran % (Auto) 4.200 H, Neut % (Auto) 79.8 H, Lymph % (Auto) 10.6 L, [place] % (Auto) 4.9, Eos % (Auto) 0.2, Baso % (Auto) 0.3, Absolute Neuts (auto) 8.7 H, Absolute Lymphs (auto) 1.16, Nucleated RBC % 0 Current Medications Acetaminophen (Acetaminophen 325 Mg Tablet) 650 mg PO Q6H PRN PRN PRN Reason: Pain Score 1-10/Temp > 100.7 F Last Admin: 07/18/20 08:41 Dose: 325 mg Documented by: Hydrocodone Bitart/Acetaminophen (Hydrocodone Bitartrate/Apap 5/325 Tablet) 2 tablet PO Q4H PRN PRN PRN Reason: pain 4-10 Last Admin: 07/25/20 00:04 Dose: 2 tablet Documented by: Albuterol Sulfate (Albuterol Sulfate 8 Gm Inhaler (60 Puffs)) 2 puff INHALATION Q4H PRN PRN PRN Reason: SOB &/OR WHEEZING Dexamethasone (Dexamethasone 4 Mg Tablet) 6 mg PO DAILY [facility] Last Admin: 07/24/20 09:39 Dose: 6 mg Documented by: Enoxaparin Sodium (Enoxaparin 80 Mg/0.8 Ml Syringe) 80 mg SC BID [facility] Last Admin: 07/24/20 19:58 Dose: 80 mg Documented by: Furosemide (Furosemide 40 Mg/4 Ml Vial) 40 mg IV DAILY [facility] Last Admin: 07/24/20 09:38 Dose: 40 mg Documented by: Gabapentin (Gabapentin 100 Mg Capsule) 200 mg PO TIDCM [facility] Last Admin: 07/24/20 17:04 Dose: 200 mg Documented by: Levothyroxine Sodium (Levothyroxine 25 Mcg Tablet) 25 mcg PO DAILY [facility] Last Admin: 07/24/20 09:39 Dose: 25 mcg Documented by: Loperamide HCl (Loperamide 2 Mg Capsule) 2 mg PO Q4H PRN PRN PRN Reason: DIARRHEA/LOOSE STOOLS Last Admin: 07/22/20 19:53 Dose: 2 mg Documented by: Lorazepam (Lorazepam 2 Mg/Ml Syringe) 1 mg IV Q4H PRN PRN PRN Reason: agitation/anxiety with BIPAP Melatonin (Melatonin 3 Mg Tablet) 3 mg PO QHS PRN PRN PRN Reason: INSOMNIA Last Admin: 07/24/20 19:58 Dose: 3 mg Documented by: Nystatin (Nystatin 500,000 Unit/5 Ml Udc) 500,000 unit PO 4X/DAY [facility] Last Admin: 07/24/20 19:58 Dose: 500,000 unit Documented by: Ondansetron HCl (Ondansetron 4 Mg/2 Ml Vial) 4 mg IV Q6H PRN PRN PRN Reason: NAUSEA/VOMITING Pantoprazole Sodium (Pantoprazole Sodium 40 Mg Tablet) 40 mg PO BID [facility] Last Admin: 07/24/20 19:58 Dose: 40 mg Documented by: Potassium Chloride ([facility] 20 [facility]) [facility] Last Admin: 07/24/20 17:04 Dose: 40 meq Documented by: Sodium Chloride (0.9% Saline Lock 10 Ml Syringe) 10 - 40 ml IV UD PRN PRN Reason: SALINE FLUSH Last Admin: 07/25/20 04:24 Dose: 10 ml Documented by: STROKE Vital Signs/Narrative: Vital Signs Temp Pulse Resp BP Pulse Ox 07/25/20 07:06 42 L 07/25/20 05:56 98.7 F 51 L 18 118/71 93 07/25/20 04:23 98.2 F 45 L 17 142/75 H 95 Medical Necessity - Tobacco Use Smoking Status: Former smoker Tobacco Use: Cigarettes Assessment/Plan All Active Problems (Last Reviewed 07/16/20 @ 23:[address] Richard Gaona MD) COVID-19 (Acute) Hypoxia (Acute) Hypokalemia (Acute) Respiratory insufficiency (Acute) #Acute hypoxic respiratory failure due to COVID-19 pneumonia * on Airvo * IV dexamethasone. On breathing treatments with bronchodilators. * On remdesivir. * Encourage incentive spirometry use. * received convalescent plasma * ID and pulmonology on board * in cumulative positive balance by 6.21L * on IV lasix 40mg bid * titrate oxygen to maintain sats >90% * #Bradycardia: * Still remains bradycardic. TSH WNL at 0.4 * Bradycardia could be related to her Covid infection. * gabapentin dose reduced to 200mg tid, per discussion with cardiology, * will continue to monitor. cardiology on board; advocate conservative management now * * #Acute COVID-19 infection: As under management for respiratory failure #Hypomagnesemia and hypokalemia: Resolved. #JARRETT on CKD stage III: Resolved #Hypertension: Losartan held on admission due to hypotension. Continue holding and monitor. #Hypothyroidism: On Synthroid DVT prophylaxis: Lovenox Inpatient E&M: 70400 Subs Hosp L2
--- NOTE | 2020-07-25 08:21 | CPS ---
patient on AIRVO
[2020-07-25] MEDS: Gabapentin 100 MG Capsule 200 MG PO ×3 (08:52→18:20)
[2020-07-25] MEDS: dexAMETHasone 4 MG Tablet 6 MG PO (08:52)
[2020-07-25] MEDS: Enoxaparin 80 MG/0.8 ML Syringe SC ×2 (08:54→21:45)
[2020-07-25] MEDS: Pantoprazole Sodium 40 MG Tablet PO ×2 (08:55→21:45)
[2020-07-25] MEDS: Levothyroxine 25 MCG TABLET PO (08:55)
[2020-07-25] MEDS: NYSTATIN 500,000 UNIT/5 ML UDC 500000 UNIT PO ×4 (08:55→21:45)
--- NOTE | 2020-07-25 16:34 | CPS ---
AIRVO water changed at 12:30
[2020-07-25] MEDS: MELATONIN 3 MG TABLET PO (21:45)
[2020-07-26] VITALS (12 sets, daily range): BP systolic 94–128; BP diastolic 59–64; PULSE 40–62; RESP 17–22; TEMP 36.3–37.2; O2SAT 92–95
[2020-07-26 05:38] LABS: Absolute Lymphocyte Count 1.03 X10^3/uL (0.83-4.51); Absolute Neutrophil Count 8.6 X10^3/uL (2.0-7.7); Basophil# 0.02 X10^3/uL; Basophil% 0.2 % (0-1); Eosinophil# 0.05 X10^3/uL; Eosinophils% 0.5 % (0-5); Hematocrit 41.9 % (37-47); Hemoglobin 13.6 g/dL (12.0-15.0); Lymphocyte # 1.03 X10^3/ul (4.0); Lymphocyte % 9.8 % (19-41); Mean Corp Hgb Conc 32.5 g/dL (32-36); Mean Corpuscular Hgb 28.2 pg (27.0-32.0); Mean Corpuscular Volume 86.9 fL (81-99); Mean Platelet Vol. 10.9 fl (6.2-12.0); Monocyte# 0.59 X10^3/uL; Monocyte% 5.6 % (0-10); NRBC Flagged by Analyzer 0 % (0-5); Neutrophil # 8.59 X10^3/uL (2.7-7.7); Neutrophil % 81.3 % (47-70); Platelet Count 231 K/mm3 (150-450); RBC Distribution Width CV 13.3 % (11.6-14.6); RBC Distribution Width SD 42.3 fl (35.1-43.9); Red Blood Count 4.82 M/mm3 (4.2-5.4); White Blood Count 10.6 K/mm3 (4.4-11.0)
[2020-07-26 06:07] LABS: Anion Gap 8 (5-15); BUN 36 mg/dL (7-18); BUN/Creat Ratio 36.8 RATIO (10-20); Calcium,Total 8.5 mg/dL (8.5-10.1); Chloride 106 mmol/L (98-107); Creatinine, Serum 0.98 mg/dL (0.55-1.02); EST Glomerular Filtration Rate 61 mL/min (>60); Est Glom Filt Rate - Afr Amer 73 mL/min (>60); Estimated Creatinine Clearance 49.42 ml/min; Glucose 117 mg/dL (74-106); Sodium Level 139 mmol/L (136-145)
[2020-07-26] MEDS: dexAMETHasone 4 MG Tablet 6 MG PO (08:51)
[2020-07-26] MEDS: Furosemide 40 MG/4 ML Vial IV (08:51)
[2020-07-26] MEDS: Levothyroxine 25 MCG TABLET PO (08:51)
[2020-07-26] MEDS: Pantoprazole Sodium 40 MG Tablet PO ×2 (08:51→21:18)
[2020-07-26] MEDS: Enoxaparin 80 MG/0.8 ML Syringe SC ×2 (08:52→21:19)
[2020-07-26] MEDS: Loperamide 2 MG Capsule PO (09:09)
[2020-07-26] MEDS: HYDROcodone Bitartrate/Apap 5/325 Tablet PO ×3 (09:09→21:32)
[2020-07-26] MEDS: Gabapentin 100 MG Capsule 200 MG PO ×3 (09:09→16:11)
[2020-07-26] MEDS: 0.9% Saline Lock 10 ML Syringe IV (09:11)
[2020-07-26] MEDS: NYSTATIN 500,000 UNIT/5 ML UDC 500000 UNIT PO ×4 (11:10→21:19)
--- NOTE | 2020-07-26 12:49 | PN_ITS ---
Patient Problems: Active and Suspected Problems (Last Reviewed 07/16/20 @ 23:[address] Richard Gaona MD) COVID-19 (Acute) Hypoxia (Acute) Hypokalemia (Acute) Respiratory insufficiency (Acute) Reason for Visit: Follow-up on respiratory failure/acute COVID-19 pneumonia Subjective: Patient was seen and examined. Remains high flow oxygen via Airvo. No other acute events. Objective: Physical exam: Vitals/I&O's: Vital Signs Temp Pulse Resp BP Pulse Ox 97.3 F L 59 L 20 H 108/61 95 07/26/20 08:45 07/26/20 08:45 07/26/20 08:45 07/26/20 08:45 07/26/20 08:45 Oxygen Flow Rate (L/min) 55 Oxygen Delivery Method Airvo Weight: 80.739 kg Body Mass Index (BMI) 30.5 Intake and Output for Last 24 Hours 07/24/20 07/25/20 07/26/20 23:59 23:59 23:59 Intake Total 920 / 1400 1940 / 1940 1360 / 1360 Output Total 1050 / 1050 950 / 950 Balance -130 / 350 990 / 990 1360 / 1360 General: Alert, Oriented x3, Cooperative, - - Mild respiratory distress, on 55L oxygen HEENT: Atraumatic, PERRLA, EOMI, Normocephalic Neck: Supple, No JVD, Negative Carotid Bruits Lungs: Clear to auscultation, Normal air movement Cardiovascular: Regular rate, No murmurs Abdomen: Bowel Sounds Present, Soft, Non Tender Extremities: No edema, Capillary Refill Less than 3 Seconds Skin: No rashes, No breakdown Musculoskeletal: No Tenderness to Palpation of Joints or Extremities Neurological: Cranial nerves II-XII grossly intact Psych/Mental Status: Normal Affect, Appropriate Laboratory Results 07/26/20 05:06: Sodium 139, Potassium 4.0, Chloride 106, Carbon Dioxide 25.0, Anion Gap 8, BUN 36 H, Creatinine 0.98, Estim Creat Clear Calc 49.42, Est GFR (MDRD) Af Amer 73, Est GFR (MDRD) Non-Af 61, BUN/Creatinine Ratio 36.8 H, Glucose 117 H, Calcium 8.5 07/26/20 05:06: WBC 10.6, RBC 4.82, Hgb 13.6, Hct 41.9, MCV 86.9, MCH 28.2, MCHC 32.5, RDW Std Deviation 42.3, RDW Coeff of Brittanie 13.3, Plt Count 231, MPV 10.9, Immature Gran % (Auto) 2.600 H, Neut % (Auto) 81.3 H, Lymph % (Auto) 9.8 L, [place] % (Auto) 5.6, Eos % (Auto) 0.5, Baso % (Auto) 0.2, Absolute Neuts (auto) 8.6 H, Absolute Lymphs (auto) 1.03, Nucleated RBC % 0 Current Medications Acetaminophen (Acetaminophen 325 Mg Tablet) 650 mg PO Q6H PRN PRN PRN Reason: Pain Score 1-10/Temp > 100.7 F Last Admin: 07/18/20 08:41 Dose: 325 mg Documented by: Hydrocodone Bitart/Acetaminophen (Hydrocodone Bitartrate/Apap 5/325 Tablet) 2 tablet PO Q4H PRN PRN PRN Reason: pain 4-10 Last Admin: 07/26/20 09:09 Dose: 2 tablet Documented by: Albuterol Sulfate (Albuterol Sulfate 8 Gm Inhaler (60 Puffs)) 2 puff INHALATION Q4H PRN PRN PRN Reason: SOB &/OR WHEEZING Dexamethasone (Dexamethasone 4 Mg Tablet) 6 mg PO DAILY [facility] Last Admin: 07/26/20 08:51 Dose: 6 mg Documented by: Enoxaparin Sodium (Enoxaparin 80 Mg/0.8 Ml Syringe) 80 mg SC BID [facility] Last Admin: 07/26/20 08:52 Dose: 80 mg Documented by: Furosemide (Furosemide 40 Mg/4 Ml Vial) 40 mg IV DAILY [facility] Last Admin: 07/26/20 08:51 Dose: 40 mg Documented by: Gabapentin (Gabapentin 100 Mg Capsule) 200 mg PO TIDCM [facility] Last Admin: 07/26/20 11:10 Dose: 200 mg Documented by: Levothyroxine Sodium (Levothyroxine 25 Mcg Tablet) 25 mcg PO DAILY [facility] Last Admin: 07/26/20 08:51 Dose: 25 mcg Documented by: Loperamide HCl (Loperamide 2 Mg Capsule) 2 mg PO Q4H PRN PRN PRN Reason: DIARRHEA/LOOSE STOOLS Last Admin: 07/26/20 09:09 Dose: 2 mg Documented by: Lorazepam (Lorazepam 2 Mg/Ml Syringe) 1 mg IV Q4H PRN PRN PRN Reason: agitation/anxiety with BIPAP Melatonin (Melatonin 3 Mg Tablet) 3 mg PO QHS PRN PRN PRN Reason: INSOMNIA Last Admin: 07/25/20 21:45 Dose: 3 mg Documented by: Nystatin (Nystatin 500,000 Unit/5 Ml Udc) 500,000 unit PO 4X/DAY [facility] Last Admin: 07/26/20 11:10 Dose: 500,000 unit Documented by: Ondansetron HCl (Ondansetron 4 Mg/2 Ml Vial) 4 mg IV Q6H PRN PRN PRN Reason: NAUSEA/VOMITING Pantoprazole Sodium (Pantoprazole Sodium 40 Mg Tablet) 40 mg PO BID [facility] Last Admin: 07/26/20 08:51 Dose: 40 mg Documented by: Potassium Chloride (Potassium Chloride 20 Meq Tablet) 40 meq PO BIDCM [facility] Last Admin: 07/26/20 08:50 Dose: 40 meq Documented by: Sodium Chloride (0.9% Saline Lock 10 Ml Syringe) 10 - 40 ml IV UD PRN PRN Reason: SALINE FLUSH Last Admin: 07/26/20 09:11 Dose: 10 ml Documented by: Medical Necessity - Tobacco Use Smoking Status: Former smoker Tobacco Use: Cigarettes Assessment/Plan All Active Problems (Last Reviewed 07/16/20 @ 23:[address] Richard Gaona MD) COVID-19 (Acute) Hypoxia (Acute) Hypokalemia (Acute) Respiratory insufficiency (Acute) 1. Acute hypoxic respiratory failure secondary to acute COVID-19 infection, worsening Patient is currently on Airvo, 55L Continue with breathing treatments, po steroids, encourage use of incentive spirometer. Wean off oxygen for SPO2 more than 94% 2. Acute COVID-19 infection, with hypoxia Continue on therapeutic Lovenox, Decadron, remdesivir ordered 3. Bradycardia, unclear etiology, improved Not on beta-blockers or calcium channel blockers TSH is 0.40 Continue to monitor 4. Acute diarrhea likely secondary to COVID-19 infection, persistent Enteric panel is negative, on Imodium prn 5. Hypokalemia/hypomagnesemia secondary to diarrhea, resolved, recheck in a.m. 6. JARRETT on CKD stage III, prerenal secondary to dehydration, resolved Will trend BMP in a.m. 7. Hypertension, relatively hypotensive, home losartan on hold Continue to monitor 8. Hypothyroidism, continue on synthroid 9. DVT PPx- on therapeutic Lovenox SC Inpatient E&M: 45077 Subs Hosp L2
--- NOTE | 2020-07-26 17:15 | PN.ID_ITS ---
Patient Problems: Active and Suspected Problems (Last Reviewed 07/16/20 @ 23:[address] Richard Gaona MD) COVID-19 (Acute) Hypoxia (Acute) Hypokalemia (Acute) Respiratory insufficiency (Acute) Subjective: Feeling better, no fever - Physical Exam Vitals/I&O's: Vital Signs Temp Pulse Resp BP Pulse Ox 97.9 F 62 18 123/64 H 94 07/26/20 16:13 07/26/20 16:13 07/26/20 16:13 07/26/20 16:13 07/26/20 16:13 Oxygen Flow Rate (L/min) 55 Oxygen Delivery Method Airvo Weight: 80.739 kg Body Mass Index (BMI) 30.5 Intake and Output for Last 24 Hours 07/24/20 07/25/20 07/26/20 23:59 23:59 23:59 Intake Total 920 / 1400 1940 / 1940 1360 / 1360 Output Total 1050 / 1050 950 / 950 Balance -130 / 350 990 / 990 1360 / 1360 General: Alert, Cooperative, No apparent distress Lungs: Clear to auscultation, Diminished Cardiovascular: Regular rate, Regular Rhythm Abdomen: Soft, Non Tender, Non-Distended Skin: No rashes Laboratory Results 07/26/20 05:06: Sodium 139, Potassium 4.0, Chloride 106, Carbon Dioxide 25.0, Anion Gap 8, BUN 36 H, Creatinine 0.98, Estim Creat Clear Calc 49.42, Est GFR (MDRD) Af Amer 73, Est GFR (MDRD) Non-Af 61, BUN/Creatinine Ratio 36.8 H, Glucose 117 H, Calcium 8.5 07/26/20 05:06: WBC 10.6, RBC 4.82, Hgb 13.6, Hct 41.9, MCV 86.9, MCH 28.2, MCHC 32.5, RDW Std Deviation 42.3, RDW Coeff of Brittanie 13.3, Plt Count 231, MPV 10.9, Immature Gran % (Auto) 2.600 H, Neut % (Auto) 81.3 H, Lymph % (Auto) 9.8 L, [place] % (Auto) 5.6, Eos % (Auto) 0.5, Baso % (Auto) 0.2, Absolute Neuts (auto) 8.6 H, Absolute Lymphs (auto) 1.03, Nucleated RBC % 0 Current Medications Acetaminophen (Acetaminophen 325 Mg Tablet) 650 mg PO Q6H PRN PRN PRN Reason: Pain Score 1-10/Temp > 100.7 F Last Admin: 07/18/20 08:41 Dose: 325 mg Documented by: Hydrocodone Bitart/Acetaminophen (Hydrocodone Bitartrate/Apap 5/325 Tablet) 2 tablet PO Q4H PRN PRN PRN Reason: pain 4-10 Last Admin: 07/26/20 14:34 Dose: 2 tablet Documented by: Albuterol Sulfate (Albuterol Sulfate 8 Gm Inhaler (60 Puffs)) 2 puff INHALATION Q4H PRN PRN PRN Reason: SOB &/OR WHEEZING Dexamethasone (Dexamethasone 4 Mg Tablet) 6 mg PO DAILY [facility] Last Admin: 07/26/20 08:51 Dose: 6 mg Documented by: Enoxaparin Sodium (Enoxaparin 80 Mg/0.8 Ml Syringe) 80 mg SC BID [facility] Last Admin: 07/26/20 08:52 Dose: 80 mg Documented by: Furosemide (Furosemide 40 Mg/4 Ml Vial) 40 mg IV DAILY [facility] Last Admin: 07/26/20 08:51 Dose: 40 mg Documented by: Gabapentin (Gabapentin 100 Mg Capsule) 200 mg PO TIDCM [facility] Last Admin: 07/26/20 16:11 Dose: 200 mg Documented by: Levothyroxine Sodium (Levothyroxine 25 Mcg Tablet) 25 mcg PO DAILY [facility] Last Admin: 07/26/20 08:51 Dose: 25 mcg Documented by: Loperamide HCl (Loperamide 2 Mg Capsule) 2 mg PO Q4H PRN PRN PRN Reason: DIARRHEA/LOOSE STOOLS Last Admin: 07/26/20 09:09 Dose: 2 mg Documented by: Lorazepam (Lorazepam 2 Mg/Ml Syringe) 1 mg IV Q4H PRN PRN PRN Reason: agitation/anxiety with BIPAP Melatonin (Melatonin 3 Mg Tablet) 3 mg PO QHS PRN PRN PRN Reason: INSOMNIA Last Admin: 07/25/20 21:45 Dose: 3 mg Documented by: Nystatin (Nystatin 500,000 Unit/5 Ml Udc) 500,000 unit PO 4X/DAY [facility] Last Admin: 07/26/20 15:10 Dose: 500,000 unit Documented by: Ondansetron HCl (Ondansetron 4 Mg/2 Ml Vial) 4 mg IV Q6H PRN PRN PRN Reason: NAUSEA/VOMITING Pantoprazole Sodium (Pantoprazole Sodium 40 Mg Tablet) 40 mg PO BID [facility] Last Admin: 07/26/20 08:51 Dose: 40 mg Documented by: Potassium Chloride (Potassium Chloride 20 Meq Tablet) [facility] Last Admin: 07/26/20 16:11 Dose: 40 meq Documented by: Sodium Chloride (0.9% Saline Lock 10 Ml Syringe) 10 - 40 ml IV UD PRN PRN Reason: SALINE FLUSH Last Admin: 07/26/20 09:11 Dose: 10 ml Documented by: Medical Necessity - Tobacco Use Smoking Status: Former smoker Tobacco Use: Cigarettes Route of nutrition/ use of supplements: [] Nutritional Intake: [] IV Site: [] Gr Catheter: [] - Assessment/Plan Antibiotics: [] Assessment/Plan: [] Active and Suspected Problems (Last Reviewed 07/16/20 @ 23:[address] Richard Gaona MD) COVID-19 (Acute) Hypoxia (Acute) Hypokalemia (Acute) Respiratory insufficiency (Acute) On dex, completed remdesivir. Got plasma 07/19. Feeling much better, still high O2 reqs Will follow
--- NOTE | 2020-07-26 18:25 | PCM.PN.PUL ---
Patient Problems: Active and Suspected Problems (Last Reviewed 07/16/20 @ 23:[address] Richard Gaona MD) COVID-19 (Acute) Hypoxia (Acute) Hypokalemia (Acute) Respiratory insufficiency (Acute) Subjective: Patient did well overnight. Patient states he feels more energy today compared to yesterday. Patient has been able to make some improvements on supplemental oxygen requirements over the last 24 hours. No chest pain, abdominal pain, nausea or vomiting is been reported. Patient reports getting approximately 750 cc on incentive spirometer - Physical Exam Vitals/I&O's: Vital Signs Temp Pulse Resp BP Pulse Ox 36.6 C 62 18 123/64 H 94 07/26/20 16:13 07/26/20 16:13 07/26/20 16:13 07/26/20 16:13 07/26/20 16:13 Oxygen Flow Rate (L/min) 55 Oxygen Delivery Method Airvo Weight: 80.739 kg Body Mass Index (BMI) 30.5 Intake and Output for Last 24 Hours 07/24/20 07/25/20 07/26/20 23:59 23:59 23:59 Intake Total 920 / 1400 1940 / 1940 188 / 1880 Output Total 1050 / 1050 950 / 950 Balance -130 / 350 990 / 990 1879 / 1879 General: Alert, Oriented x3, Cooperative, No apparent distress, Well developed, Well nourished, - - Speaking in full sentences. Obese. HEENT: Atraumatic, PERRLA, EOMI, Normocephalic, - - Slight scleral injection Oral: Moist Mucosa, No Gingival or Mucosal Lesions/ Ulcerations Neck: Supple, No JVD, No Nodes, Trachea Midline Lungs: No rhonchi, No wheeze, No rales, Diminished, - - Symmetric expansion Cardiovascular: Regular rate, Regular Rhythm, No murmurs, Bradycardic, No rub noted, No Gallop Abdomen: Bowel Sounds Present, Soft, Non Tender, Non-Distended Extremities: No clubbing, No cyanosis, No edema, Capillary Refill Less than 3 Seconds Skin: No rashes, No breakdown Musculoskeletal: No Tenderness to Palpation of Joints or Extremities Lymphatic: No Cervical, Supraclavicular, or Inguinal Adenopathy Neurological: Cranial nerves II-XII grossly intact, Neuro grossly intact Psych/Mental Status: Normal Affect, Appropriate Laboratory Results 07/26/20 05:06: Sodium 139, Potassium 4.0, Chloride 106, Carbon Dioxide 25.0, Anion Gap 8, BUN 36 H, Creatinine 0.98, Estim Creat Clear Calc 49.42, Est GFR (MDRD) Af Amer 73, Est GFR (MDRD) Non-Af 61, BUN/Creatinine Ratio 36.8 H, Glucose 117 H, Calcium 8.5 07/26/20 05:06: WBC 10.6, RBC 4.82, Hgb 13.6, Hct 41.9, MCV 86.9, MCH 28.2, MCHC 32.5, RDW Std Deviation 42.3, RDW Coeff of Brittanie 13.3, Plt Count 231, MPV 10.9, Immature Gran % (Auto) 2.600 H, Neut % (Auto) 81.3 H, Lymph % (Auto) 9.8 L, [place] % (Auto) 5.6, Eos % (Auto) 0.5, Baso % (Auto) 0.2, Absolute Neuts (auto) 8.6 H, Absolute Lymphs (auto) 1.03, Nucleated RBC % 0 Current Medications Acetaminophen (Acetaminophen 325 Mg Tablet) 650 mg PO Q6H PRN PRN PRN Reason: Pain Score 1-10/Temp > 100.7 F Last Admin: 07/18/20 08:41 Dose: 325 mg Documented by: Hydrocodone Bitart/Acetaminophen (Hydrocodone Bitartrate/Apap 5/325 Tablet) 2 tablet PO Q4H PRN PRN PRN Reason: pain 4-10 Last Admin: 07/26/20 14:34 Dose: 2 tablet Documented by: Albuterol Sulfate (Albuterol Sulfate 8 Gm Inhaler (60 Puffs)) 2 puff INHALATION Q4H PRN PRN PRN Reason: SOB &/OR WHEEZING Dexamethasone (Dexamethasone 4 Mg Tablet) 6 mg PO DAILY [facility] Last Admin: 07/26/20 08:51 Dose: 6 mg Documented by: Enoxaparin Sodium (Enoxaparin 80 Mg/0.8 Ml Syringe) 80 mg SC BID [facility] Last Admin: 07/26/20 08:52 Dose: 80 mg Documented by: Furosemide (Furosemide 40 Mg/4 Ml Vial) 40 mg IV DAILY [facility] Last Admin: 07/26/20 08:51 Dose: 40 mg Documented by: Gabapentin (Gabapentin 100 Mg Capsule) 200 mg PO TIDCM [facility] Last Admin: 07/26/20 16:11 Dose: 200 mg Documented by: Levothyroxine Sodium (Levothyroxine 25 Mcg Tablet) 25 mcg PO DAILY [facility] Last Admin: 07/26/20 08:51 Dose: 25 mcg Documented by: Loperamide HCl (Loperamide 2 Mg Capsule) 2 mg PO Q4H PRN PRN PRN Reason: DIARRHEA/LOOSE STOOLS Last Admin: 07/26/20 09:09 Dose: 2 mg Documented by: Lorazepam (Lorazepam 2 Mg/Ml Syringe) 1 mg IV Q4H PRN PRN PRN Reason: agitation/anxiety with BIPAP Melatonin (Melatonin 3 Mg Tablet) 3 mg PO QHS PRN PRN PRN Reason: INSOMNIA Last Admin: 07/25/20 21:45 Dose: 3 mg Documented by: Nystatin (Nystatin 500,000 Unit/5 Ml Udc) 500,000 unit PO 4X/DAY [facility] Last Admin: 07/26/20 17:52 Dose: 500,000 unit Documented by: Ondansetron HCl (Ondansetron 4 Mg/2 Ml Vial) 4 mg IV Q6H PRN PRN PRN Reason: NAUSEA/VOMITING Pantoprazole Sodium (Pantoprazole Sodium 40 Mg Tablet) 40 mg PO BID [facility] Last Admin: 07/26/20 08:51 Dose: 40 mg Documented by: Potassium Chloride (Potassium Chloride 20 Meq Tablet) 40 meq PO BIDCM [facility] Last Admin: 07/26/20 16:11 Dose: 40 meq Documented by: Sodium Chloride (0.9% Saline Lock 10 Ml Syringe) 10 - 40 ml IV UD PRN PRN Reason: SALINE FLUSH Last Admin: 07/26/20 09:11 Dose: 10 ml Documented by: Medical Necessity - Tobacco Use Smoking Status: Former smoker Tobacco Use: Cigarettes Assessment/Plan All Active Problems (Last Reviewed 07/16/20 @ 23:[address] Richard Gaona MD) COVID-19 (Acute) Hypoxia (Acute) Hypokalemia (Acute) Respiratory insufficiency (Acute) RECOMMENDATIONS: 1. Wean supplemental oxygen to maintain saturations at or above 90%. 2. Continue Lovenox and Decadron with plans to complete a 10-day treatment course. Remdesivir and plasma have completed. 3. Continue diuretic therapy as tolerated by hemodynamics and renal function. 4. Encourage incentive spirometer use and mobilize patient as tolerated. IMPRESSIONS: 1. Acute hypoxemic respiratory failure secondary to COVID-19 pneumonia The patient continues to be quite tenuous from a respiratory perspective with high supplemental oxygen requirement, but may be starting to improve. Plan to continue Decadron and therapeutic Lovenox as ordered. The patient has already received convalescent plasma and completed a treatment course of remdesivir. Wean supplemental oxygen to maintain saturations at or above 90%. Encourage incentive spirometer use and mobilize patient as tolerated. Volume optimization will be olmos to recovery. 2. Acute kidney injury/advanced age Complicates care, management, recovery and prognosis. Continue current supportive measures. Inpatient E&M: 30715 [facility] Hosp L3
[2020-07-26] MEDS: MELATONIN 3 MG TABLET PO (21:32)
[2020-07-27] VITALS (14 sets, daily range): BP systolic 101–120; BP diastolic 55–70; PULSE 42–73; RESP 18–24; TEMP 36.4–37.1; O2SAT 88–95
[2020-07-27] MEDS: HYDROcodone Bitartrate/Apap 5/325 Tablet PO ×4 (03:33→21:46)
[2020-07-27] MEDS: Loperamide 2 MG Capsule PO ×2 (03:33→08:56)
[2020-07-27 06:05] LABS: Absolute Lymphocyte Count 0.86 X10^3/uL (0.83-4.51); Absolute Neutrophil Count 9.7 X10^3/uL (2.0-7.7); Basophil# 0.03 X10^3/uL; Basophil% 0.3 % (0-1); Eosinophil# 0.04 X10^3/uL; Eosinophils% 0.4 % (0-5); Hematocrit 42.2 % (37-47); Hemoglobin 13.3 g/dL (12.0-15.0); Lymphocyte # 0.86 X10^3/ul (4.0); Lymphocyte % 7.6 % (19-41); Mean Corp Hgb Conc 31.5 g/dL (32-36); Mean Corpuscular Hgb 29.1 pg (27.0-32.0); Mean Corpuscular Volume 92.3 fL (81-99); Mean Platelet Vol. 11.4 fl (6.2-12.0); Monocyte# 0.53 X10^3/uL; Monocyte% 4.7 % (0-10); NRBC Flagged by Analyzer 0 % (0-5); Neutrophil # 9.69 X10^3/uL (2.7-7.7); Neutrophil % 84.9 % (47-70); Platelet Count 208 K/mm3 (150-450); RBC Distribution Width CV 13.4 % (11.6-14.6); RBC Distribution Width SD 44.9 fl (35.1-43.9); Red Blood Count 4.57 M/mm3 (4.2-5.4); White Blood Count 11.4 K/mm3 (4.4-11.0)
[2020-07-27 06:34] LABS: ALB/GLOB Ratio 0.6 RATIO (0.9-2.4); AST(SGOT) 24 U/L (15-37); Alanine Aminotransfer ALT/SGPT 48 U/L (13-56); Albumin, Serum 2.4 g/dL (3.2-5.0); Alkaline Phosphatase 79 U/L (45-117); Anion Gap 7 (5-15); BUN 33 mg/dL (7-18); BUN/Creat Ratio 36.1 RATIO (10-20); Calcium,Total 8.4 mg/dL (8.5-10.1); Chloride 105 mmol/L (98-107); Creatinine, Serum 0.91 mg/dL (0.55-1.02); EST Glomerular Filtration Rate 66 mL/min (>60); Est Glom Filt Rate - Afr Amer 79 mL/min (>60); Estimated Creatinine Clearance 53.22 ml/min; Globulin 3.7 g/dL (2.2-4.2); Glucose 129 mg/dL (74-106); Magnesium 1.7 mg/dL (1.6-2.6); Protein, Total 6.1 g/dL (6.4-8.2); Sodium Level 135 mmol/L (136-145)
[2020-07-27] MEDS: Gabapentin 100 MG Capsule 200 MG PO ×3 (08:43→17:13)
[2020-07-27] MEDS: Acetaminophen 325 MG Tablet 650 MG PO (08:56)
[2020-07-27] MEDS: dexAMETHasone 4 MG Tablet 6 MG PO (09:03)
[2020-07-27] MEDS: NYSTATIN 500,000 UNIT/5 ML UDC 500000 UNIT PO ×4 (09:03→21:46)
[2020-07-27] MEDS: Enoxaparin 80 MG/0.8 ML Syringe SC ×2 (09:03→21:47)
[2020-07-27] MEDS: Pantoprazole Sodium 40 MG Tablet PO ×2 (09:03→21:46)
[2020-07-27] MEDS: Levothyroxine 25 MCG TABLET PO (09:03)
[2020-07-27] MEDS: Furosemide 40 MG/4 ML Vial IV ×2 (09:03→17:13)
[2020-07-27] MEDS: 0.9% Saline Lock 10 ML Syringe IV ×3 (09:04→17:16)
--- NOTE | 2020-07-27 10:24 | PN_ITS ---
Patient Problems: Active and Suspected Problems (Last Reviewed 07/16/20 @ 23:[address] Richard Gaona MD) COVID-19 (Acute) Hypoxia (Acute) Hypokalemia (Acute) Respiratory insufficiency (Acute) Subjective: Patient did okay overnight. Patient does report that she woke up at approximately 3 AM and was unable to get back to sleep. Patient states that she feels relatively unchanged compared to yesterday. Patient does report that she is tired. Patient was able to make it to 1250 cc on her incentive spirometer yesterday and oxygen was able to be weaned. Unfortunately, patient is back up to 75% FiO2 this morning. - Physical Exam Vitals/I&O's: Vital Signs Temp Pulse Resp BP Pulse Ox 36.4 C L 57 L 20 H 101/55 L 95 07/27/20 09:10 07/27/20 09:10 07/27/20 09:10 07/27/20 09:10 07/27/20 09:10 Oxygen Flow Rate (L/min) 55 Oxygen Delivery Method Airvo Weight: 80.739 kg Body Mass Index (BMI) 30.5 Intake and Output for Last 24 Hours 07/25/20 07/26/20 07/27/20 23:59 23:59 23:59 Intake Total 1940 / 1940 1979 / 1979 100 / 100 Output Total 950 / 950 400 / 400 150 / 150 Balance 990 / 990 1580 / 1580 -50 / -50 General: Alert, Oriented x3, Cooperative, No apparent distress, - - Mild conversational dyspnea. Obese. HEENT: Atraumatic, PERRLA, EOMI, Normocephalic, - - No scleral icterus or injection noted Oral: Moist Mucosa, No Gingival or Mucosal Lesions/ Ulcerations Neck: Supple, No JVD, No Nodes, Trachea Midline Lungs: No rhonchi, No wheeze, No rales, Diminished, - - Symmetric expansion. No dullness to percussion. Cardiovascular: Normal S1, Normal S2, No murmurs, Bradycardic, No rub noted, No Gallop Abdomen: Bowel Sounds Present, Soft, Non Tender, Non-Distended Extremities: No clubbing, No cyanosis Skin: No rashes, No breakdown Musculoskeletal: No Tenderness to Palpation of Joints or Extremities Lymphatic: No Cervical, Supraclavicular, or Inguinal Adenopathy Neurological: Cranial nerves II-XII grossly intact, Neuro grossly intact, Motor Exam 5/5 strength throughout Psych/Mental Status: Alert and oriented to time, place, person, mood and affect Laboratory Results 07/27/20 05:50: WBC 11.4 H, RBC 4.57, Hgb 13.3, Hct 42.2, MCV 92.3 D, MCH 29.1, MCHC 31.5 L, RDW Std Deviation 44.9 H, RDW Coeff of Brittanie 13.4, Plt Count 208, MPV 11.4, Immature Gran % (Auto) 2.100 H, Neut % (Auto) 84.9 H, Lymph % (Auto) 7.6 L , [place] % (Auto) 4.7, Eos % (Auto) 0.4, Baso % (Auto) 0.3, Absolute Neuts (auto) 9.7 H, Absolute Lymphs (auto) 0.86, Nucleated RBC % 0 07/27/20 05:50: Sodium 135 L, Potassium 4.0, Chloride 105, Carbon Dioxide 23.0, Anion Gap 7, BUN 33 H, Creatinine 0.91, Estim Creat Clear Calc 53.22, Est GFR (MDRD) Af Amer 79, Est GFR (MDRD) Non-Af 66, BUN/Creatinine Ratio 36.1 H, Glucose 129 H, Calcium 8.4 L, Magnesium 1.7, Total Bilirubin 0.40, AST 24, ALT 48, Alkaline Phosphatase 79, Total Protein 6.1 L, Albumin 2.4 L, Globulin 3.7, Albumin/Globulin Ratio 0.6 L Current Medications Acetaminophen (Acetaminophen 325 Mg Tablet) 650 mg PO Q6H PRN PRN PRN Reason: Pain Score 1-10/Temp > 100.7 F Last Admin: 07/27/20 08:56 Dose: 650 mg Documented by: Hydrocodone Bitart/Acetaminophen (Hydrocodone Bitartrate/Apap 5/325 Tablet) 2 tablet PO Q4H PRN PRN PRN Reason: pain 4-10 Last Admin: 07/27/20 08:56 Dose: 2 tablet Documented by: Albuterol Sulfate (Albuterol Sulfate 8 Gm Inhaler (60 Puffs)) 2 puff INHALATION Q4H PRN PRN PRN Reason: SOB &/OR WHEEZING Dexamethasone (Dexamethasone 4 Mg Tablet) 6 mg PO DAILY [facility] Last Admin: 07/27/20 09:03 Dose: 6 mg Documented by: Enoxaparin Sodium (Enoxaparin 80 Mg/0.8 Ml Syringe) 80 mg SC BID [facility] Last Admin: 07/27/20 09:03 Dose: 80 mg Documented by: Furosemide (Furosemide 40 Mg/4 Ml Vial) 40 mg IV DAILY [facility] Last Admin: 07/27/20 09:03 Dose: 40 mg Documented by: Gabapentin (Gabapentin 100 Mg Capsule) 200 mg PO TIDCM [facility] Last Admin: 07/27/20 08:43 Dose: 200 mg Documented by: Levothyroxine Sodium (Levothyroxine 25 Mcg Tablet) 25 mcg PO DAILY [facility] Last Admin: 07/27/20 09:03 Dose: 25 mcg Documented by: Loperamide HCl (Loperamide 2 Mg Capsule) 2 mg PO Q4H PRN PRN PRN Reason: DIARRHEA/LOOSE STOOLS Last Admin: 07/27/20 08:56 Dose: 2 mg Documented by: Lorazepam (Lorazepam 2 Mg/Ml Syringe) 1 mg IV Q4H PRN PRN PRN Reason: agitation/anxiety with BIPAP Melatonin (Melatonin 3 Mg Tablet) 3 mg PO QHS PRN PRN PRN Reason: INSOMNIA Last Admin: 07/26/20 21:32 Dose: 3 mg Documented by: Nystatin (Nystatin 500,000 Unit/5 Ml Udc) 500,000 unit PO 4X/DAY [facility] Last Admin: 07/27/20 09:03 Dose: 500,000 unit Documented by: Ondansetron HCl (Ondansetron 4 Mg/2 Ml Vial) 4 mg IV Q6H PRN PRN PRN Reason: NAUSEA/VOMITING Pantoprazole Sodium (Pantoprazole Sodium 40 Mg Tablet) 40 mg PO BID [facility] Last Admin: 07/27/20 09:03 Dose: 40 mg Documented by: Potassium Chloride (Potassium Chloride 20 Meq Tablet) 40 meq PO BIDCM [facility] Last Admin: 07/27/20 08:43 Dose: 40 meq Documented by: Sodium Chloride (0.9% Saline Lock 10 Ml Syringe) 10 - 40 ml IV UD PRN PRN Reason: SALINE FLUSH Last Admin: 07/27/20 09:04 Dose: 10 ml Documented by: Medical Necessity - Tobacco Use Smoking Status: Former smoker Tobacco Use: Cigarettes Assessment/Plan All Active Problems (Last Reviewed 07/16/20 @ 23:[address] Richard Gaona MD) COVID-19 (Acute) Hypoxia (Acute) Hypokalemia (Acute) Respiratory insufficiency (Acute) RECOMMENDATIONS: 1. Wean supplemental oxygen to maintain saturations at or above 90%. 2. Continue Lovenox and Decadron with plans to complete a 10-day treatment course. Remdesivir and plasma have completed. 3. Continue diuretic therapy as tolerated by hemodynamics and renal function. Attempt additional dose of Lasix this evening 4. Encourage incentive spirometer use and mobilize patient as tolerated. IMPRESSIONS: 1. Acute hypoxemic respiratory failure secondary to COVID-19 pneumonia The patient continues to be quite tenuous from a respiratory perspective with high supplemental oxygen requirement, but may be starting to improve. Plan to continue Decadron and therapeutic Lovenox as ordered. The patient has already received convalescent plasma and completed a treatment course of remdesivir. Wean supplemental oxygen to maintain saturations at or above 90%. Encourage incentive spirometer use and mobilize patient as tolerated. Patient's renal function appears to be doing okay at this point. Will attempt to challenge with an additional dose of Lasix this evening hoping for -500 to a liter fluid balance. 2. Acute kidney injury/advanced age Complicates care, management, recovery and prognosis. Continue current supportive measures. Inpatient E&M: 29731 [facility] Hosp L3
--- NOTE | 2020-07-27 15:05 | PCM.PN.HOSP ---
Patient Problems: Active and Suspected Problems (Last Reviewed 07/16/20 @ 23:[address] Richard Gaona MD) COVID-19 (Acute) Hypoxia (Acute) Hypokalemia (Acute) Respiratory insufficiency (Acute) Reason for Visit: Follow-up on respiratory failure/acute COVID-19 pneumonia Subjective: Patient was seen and examined. Remains high flow oxygen via Airvo. No other acute events. Feels slightly depressed. We had a talk about discharge planning and possibly being discharged to an LTAC. Patient is receptive. Discussed with case management and social work. Objective: Physical exam: General: Alert, Oriented x3, Cooperative, - - Mild respiratory distress, on 55L oxygen HEENT: Atraumatic, PERRLA, EOMI, Normocephalic Neck: Supple, No JVD, Negative Carotid Bruits Lungs: Clear to auscultation, Normal air movement Cardiovascular: Regular rate, No murmurs Abdomen: Bowel Sounds Present, Soft, Non Tender Extremities: No edema, Capillary Refill Less than 3 Seconds Skin: No rashes, No breakdown Musculoskeletal: No Tenderness to Palpation of Joints or Extremities Neurological: Cranial nerves II-XII grossly intact Psych/Mental Status: Normal Affect, Appropriate Vitals/I&O's: Vital Signs Temp Pulse Resp BP Pulse Ox 97.5 F L 57 L 20 H 101/55 L 95 07/27/20 09:10 07/27/20 09:10 07/27/20 09:10 07/27/20 09:10 07/27/20 09:10 Oxygen Flow Rate (L/min) 55 Oxygen Delivery Method Airvo Weight: 80.739 kg Body Mass Index (BMI) 30.5 Intake and Output for Last 24 Hours 07/25/20 07/26/20 07/27/20 23:59 23:59 23:59 Intake Total 1940 / 1940 1979 / 1979 100 / 100 Output Total 950 / 950 400 / 400 150 / 150 Balance 990 / 990 1580 / 1580 -50 / -50 Laboratory Results 07/27/20 05:50: WBC 11.4 H, RBC 4.57, Hgb 13.3, Hct 42.2, MCV 92.3 D, MCH 29.1, MCHC 31.5 L, RDW Std Deviation 44.9 H, RDW Coeff of Brittanie 13.4, Plt Count 208, MPV 11.4, Immature Gran % (Auto) 2.100 H, Neut % (Auto) 84.9 H, Lymph % (Auto) 7.6 L, [place] % (Auto) 4.7, Eos % (Auto) 0.4, Baso % (Auto) 0.3, Absolute Neuts (auto) 9.7 H, Absolute Lymphs (auto) 0.86, Nucleated RBC % 0 07/27/20 05:50: Sodium 135 L, Potassium 4.0, Chloride 105, Carbon Dioxide 23.0, Anion Gap 7, BUN 33 H, Creatinine 0.91, Estim Creat Clear Calc 53.22, Est GFR (MDRD) Af Amer 79, Est GFR (MDRD) Non-Af 66, BUN/Creatinine Ratio 36.1 H, Glucose 129 H, Calcium 8.4 L, Magnesium 1.7, Total Bilirubin 0.40, AST 24, ALT 48, Alkaline Phosphatase 79, Total Protein 6.1 L, Albumin 2.4 L, Globulin 3.7, Albumin/Globulin Ratio 0.6 L Current Medications Acetaminophen (Acetaminophen 325 Mg Tablet) 650 mg PO Q6H PRN PRN PRN Reason: Pain Score 1-10/Temp > 100.7 F Last Admin: 07/27/20 08:56 Dose: 650 mg Documented by: Hydrocodone Bitart/Acetaminophen (Hydrocodone Bitartrate/Apap 5/325 Tablet) 2 tablet PO Q4H PRN PRN PRN Reason: pain 4-10 Last Admin: 07/27/20 08:56 Dose: 2 tablet Documented by: Albuterol Sulfate (Albuterol Sulfate 8 Gm Inhaler (60 Puffs)) 2 puff INHALATION Q4H PRN PRN PRN Reason: SOB &/OR WHEEZING Dexamethasone (Dexamethasone 4 Mg Tablet) 6 mg PO DAILY [facility] Last Admin: 07/27/20 09:03 Dose: 6 mg Documented by: Enoxaparin Sodium (Enoxaparin 80 Mg/0.8 Ml Syringe) 80 mg SC BID [facility] Last Admin: 07/27/20 09:03 Dose: 80 mg Documented by: Furosemide (Furosemide 40 Mg/4 Ml Vial) 40 mg IV DAILY [facility] Last Admin: 07/27/20 09:03 Dose: 40 mg Documented by: Furosemide (Furosemide 40 Mg/4 Ml Vial) 40 mg IV X1 ONE Stop: 07/27/20 17:01 Gabapentin (Gabapentin 100 Mg Capsule) 200 mg PO TIDCM [facility] Last Admin: 07/27/20 12:47 Dose: 200 mg Documented by: Magnesium Sulfate 2 gm/ Sodium (Chloride) 104 mls @ 52 mls/hr IV X1 ONE Stop: 07/27/20 16:29 Levothyroxine Sodium (Levothyroxine 25 Mcg Tablet) 25 mcg PO DAILY [facility] Last Admin: 07/27/20 09:03 Dose: 25 mcg Documented by: Loperamide HCl (Loperamide 2 Mg Capsule) 2 mg PO Q4H PRN PRN PRN Reason: DIARRHEA/LOOSE STOOLS Last Admin: 07/27/20 08:56 Dose: 2 mg Documented by: Lorazepam (Lorazepam 2 Mg/Ml Syringe) 1 mg IV Q4H PRN PRN PRN Reason: agitation/anxiety with BIPAP Melatonin (Melatonin 3 Mg Tablet) 3 mg PO QHS PRN PRN PRN Reason: INSOMNIA Last Admin: 07/26/20 21:32 Dose: 3 mg Documented by: Nystatin (Nystatin 500,000 Unit/5 Ml Udc) 500,000 unit PO 4X/DAY [facility] Last Admin: 07/27/20 09:03 Dose: 500,000 unit Documented by: Ondansetron HCl (Ondansetron 4 Mg/2 Ml Vial) 4 mg IV Q6H PRN PRN PRN Reason: NAUSEA/VOMITING Pantoprazole Sodium (Pantoprazole Sodium 40 Mg Tablet) 40 mg PO BID [facility] Last Admin: 07/27/20 09:03 Dose: 40 mg Documented by: Potassium Chloride (Potassium Chloride 20 Meq Tablet) 40 meq PO BIDCM [facility] Last Admin: 07/27/20 08:43 Dose: 40 meq Documented by: Sodium Chloride (0.9% Saline Lock 10 Ml Syringe) 10 - 40 ml IV UD PRN PRN Reason: SALINE FLUSH Last Admin: 07/27/20 09:04 Dose: 10 ml Documented by: Medical Necessity - Tobacco Use Smoking Status: Former smoker Tobacco Use: Cigarettes Assessment/Plan All Active Problems (Last Reviewed 07/16/20 @ 23:[address] Richard Gaona MD) COVID-19 (Acute) Hypoxia (Acute) Hypokalemia (Acute) Respiratory insufficiency (Acute) 1. Acute hypoxic respiratory failure secondary to acute COVID-19 infection, worsening Patient is currently on Airvo, 55L Continue with breathing treatments, po steroids, encourage use of incentive spirometer. Wean off oxygen for SPO2 more than 94% 2. Acute COVID-19 infection, with hypoxia Continue on therapeutic Lovenox, Decadron Completed Remdesivir. 3. Bradycardia, unclear etiology, improved Not on beta-blockers or calcium channel blockers TSH is 0.40 Continue to monitor 4. Acute diarrhea likely secondary to COVID-19 infection, persistent Enteric panel is negative, on Imodium prn 5. Hypokalemia/hypomagnesemia secondary to diarrhea, resolved, recheck in a.m. 6. JARRETT on CKD stage III, prerenal secondary to dehydration, resolved Will trend BMP in a.m. 7. Hypertension, relatively hypotensive, home losartan on hold Continue to monitor 8. Hypothyroidism, continue on synthroid 9. DVT PPx- on therapeutic Lovenox SC Inpatient E&M: 01343 Subs Hosp L2
--- NOTE | 2020-07-27 15:56 | CASEMGMT ---
Per Dr. Mackenzie, pt agrees to LTACH referral at this time as she is still on airvo. [facility] is in-network and pt is agreeable to referral at this time. Pt states her brother lives in [place] so she is fine going to [facility] but is aware that there is a no visitor policy at this time. This RN CM calls pt back to notify that referral faxed and pt states her daughter, Yenifer Barrow, would like to speak with someone regarding LTACH and that her daughter is DON at [facility] in [place]. Dr. Mackenzie aware and willing to call daughter at this time. Per Dr. Mackenzie, daughter misunderstood that we were looking at LTACH for pt and is agreeable at this time. Daughter states that if LTACH not approved, she may be able to take her at her facility on the airvo. Referral faxed to [facility] and per Katy, pt meets their criteria at this time. [facility] requires a pre auth to the precert that [facility] would start so this ROSANA CM faxed all to [facility] and notified of need for pre-auth. Call back from [facility] and she states that they will have an answer tomorrow on the pre auth to start the precert at LTACH. [place] ROSANA HE
[2020-07-28] VITALS (12 sets, daily range): BP systolic 101–109; BP diastolic 51–67; PULSE 42–60; RESP 17–21; TEMP 36.7–37.1; O2SAT 92–95
[2020-07-28 06:01] LABS: Absolute Neutrophil Count 10.5 X10^3/uL (2.0-7.7); Basophil# 0.02 X10^3/uL; Basophil% 0.2 % (0-1); Eosinophil# 0.03 X10^3/uL; Eosinophils% 0.2 % (0-5); Hematocrit 41.2 % (37-47); Hemoglobin 13.6 g/dL (12.0-15.0); Lymphocyte % 8.2 % (19-41); Mean Corpuscular Hgb 28.6 pg (27.0-32.0); Mean Corpuscular Volume 86.7 fL (81-99); Mean Platelet Vol. 10.9 fl (6.2-12.0); Monocyte# 0.53 X10^3/uL; Monocyte% 4.3 % (0-10); NRBC Flagged by Analyzer 0 % (0-5); Neutrophil # 10.49 X10^3/uL (2.7-7.7); Neutrophil % 85.6 % (47-70); Platelet Count 256 K/mm3 (150-450); RBC Distribution Width CV 13.5 % (11.6-14.6); RBC Distribution Width SD 42.5 fl (35.1-43.9); Red Blood Count 4.75 M/mm3 (4.2-5.4); White Blood Count 12.3 K/mm3 (4.4-11.0)
[2020-07-28 06:27] LABS: ALB/GLOB Ratio 0.6 RATIO (0.9-2.4); AST(SGOT) 21 U/L (15-37); Alanine Aminotransfer ALT/SGPT 52 U/L (13-56); Albumin, Serum 2.5 g/dL (3.2-5.0); Alkaline Phosphatase 81 U/L (45-117); Anion Gap 8 (5-15); BUN 37 mg/dL (7-18); BUN/Creat Ratio 35.9 RATIO (10-20); Calcium,Total 8.8 mg/dL (8.5-10.1); Chloride 104 mmol/L (98-107); Creatinine, Serum 1.03 mg/dL (0.55-1.02); EST Glomerular Filtration Rate 57 mL/min (>60); Est Glom Filt Rate - Afr Amer 69 mL/min (>60); Estimated Creatinine Clearance 47.02 ml/min; Globulin 4.1 g/dL (2.2-4.2); Glucose 128 mg/dL (74-106); Potassium 4.2 mmol/L (3.5-5.1); Protein, Total 6.6 g/dL (6.4-8.2); Sodium Level 138 mmol/L (136-145)
--- NOTE | 2020-07-28 07:49 | PN_ITS ---
Patient Problems: Active and Suspected Problems (Last Reviewed 07/16/20 @ 23:[address] Richard Gaona MD) COVID-19 (Acute) Hypoxia (Acute) Hypokalemia (Acute) Respiratory insufficiency (Acute) Reason for Visit: Follow-up on respiratory failure/acute COVID-19 pneumonia Subjective: Patient was seen and examined. No change from yesterday. Remains high flow oxygen via Airvo. Objective: Physical exam: General: Alert, Oriented x3, Cooperative, - - Mild respiratory distress, on 55L FiO2 76% oxygen HEENT: Atraumatic, PERRLA, EOMI, Normocephalic Neck: Supple, No JVD, Negative Carotid Bruits Lungs: Clear to auscultation, Normal air movement Cardiovascular: Regular rate, No murmurs Abdomen: Bowel Sounds Present, Soft, Non Tender Extremities: No edema, Capillary Refill Less than 3 Seconds Skin: No rashes, No breakdown Musculoskeletal: No Tenderness to Palpation of Joints or Extremities Neurological: Cranial nerves II-XII grossly intact Psych/Mental Status: Normal Affect, Appropriate Vitals/I&O's: Vital Signs Temp Pulse Resp BP Pulse Ox 98.8 F 59 L 20 H 109/63 93 07/28/20 03:45 07/28/20 07:25 07/28/20 07:25 07/28/20 03:45 07/28/20 07:25 Oxygen Flow Rate (L/min) 55 Oxygen Delivery Method Airvo Weight: 80.739 kg Body Mass Index (BMI) 30.5 Intake and Output for Last 24 Hours 07/26/20 07/27/20 07/28/20 23:59 23:59 23:59 Intake Total 1979 / 1979 974 / 974 125 / 125 Output Total 400 / 400 350 / 350 Balance 1580 / 1580 624 / 624 125 / 125 Laboratory Results 07/28/20 05:40: WBC 12.3 H, RBC 4.75, Hgb 13.6, Hct 41.2, MCV 86.7 D, MCH 28.6, MCHC 33.0, RDW Std Deviation 42.5, RDW Coeff of Brittanie 13.5, Plt Count 256, MPV 10.9, Immature Gran % (Auto) 1.500 H, Neut % (Auto) 85.6 H, Lymph % (Auto) 8.2 L , [place] % (Auto) 4.3, Eos % (Auto) 0.2, Baso % (Auto) 0.2, Absolute Neuts (auto) 10.5 H, Absolute Lymphs (auto) 1.00, Nucleated RBC % 0 07/28/20 05:40: Sodium 138, Potassium 4.2, Chloride 104, Carbon Dioxide 26.0, Anion Gap 8, BUN 37 H, Creatinine 1.03 H, Estim Creat Clear Calc 47.02, Est GFR (MDRD) Af Amer 69, Est GFR (MDRD) Non-Af 57 L, BUN/Creatinine Ratio 35.9 H, Glucose 128 H, Calcium 8.8, Total Bilirubin 0.30, AST 21, ALT 52, Alkaline Phosphatase 81, Total Protein 6.6, Albumin 2.5 L, Globulin 4.1, Albumin/Globulin Ratio 0.6 L Current Medications Acetaminophen (Acetaminophen 325 Mg Tablet) 650 mg PO Q6H PRN PRN PRN Reason: Pain Score 1-10/Temp > 100.7 F Last Admin: 07/27/20 08:56 Dose: 650 mg Documented by: Hydrocodone Bitart/Acetaminophen (Hydrocodone Bitartrate/Apap 5/325 Tablet) 2 tablet PO Q4H PRN PRN PRN Reason: pain 4-10 Last Admin: 07/27/20 21:46 Dose: 2 tablet Documented by: Albuterol Sulfate (Albuterol Sulfate 8 Gm Inhaler (60 Puffs)) 2 puff INHALATION Q4H PRN PRN PRN Reason: SOB &/OR WHEEZING Dexamethasone (Dexamethasone 4 Mg Tablet) 6 mg PO DAILY [facility] Last Admin: 07/27/20 09:03 Dose: 6 mg Documented by: Enoxaparin Sodium (Enoxaparin 80 Mg/0.8 Ml Syringe) 80 mg SC BID [facility] Last Admin: 07/27/20 21:47 Dose: 80 mg Documented by: Gabapentin (Gabapentin 100 Mg Capsule) 200 mg PO TIDCM [facility] Last Admin: 07/27/20 17:13 Dose: 200 mg Documented by: Levothyroxine Sodium (Levothyroxine 25 Mcg Tablet) 25 mcg PO DAILY [facility] Last Admin: 07/27/20 09:03 Dose: 25 mcg Documented by: Loperamide HCl (Loperamide 2 Mg Capsule) 2 mg PO Q4H PRN PRN PRN Reason: DIARRHEA/LOOSE STOOLS Last Admin: 07/27/20 08:56 Dose: 2 mg Documented by: Lorazepam (Lorazepam 2 Mg/Ml Syringe) 1 mg IV Q4H PRN PRN PRN Reason: agitation/anxiety with BIPAP Melatonin (Melatonin 3 Mg Tablet) 3 mg PO QHS PRN PRN PRN Reason: INSOMNIA Last Admin: 07/26/20 21:32 Dose: 3 mg Documented by: Nystatin (Nystatin 500,000 Unit/5 Ml Udc) 500,000 unit PO 4X/DAY [facility] Last Admin: 07/27/20 21:46 Dose: 500,000 unit Documented by: Ondansetron HCl (Ondansetron 4 Mg/2 Ml Vial) 4 mg IV Q6H PRN PRN PRN Reason: NAUSEA/VOMITING Pantoprazole Sodium (Pantoprazole Sodium 40 Mg Tablet) 40 mg PO BID [facility] Last Admin: 07/27/20 21:46 Dose: 40 mg Documented by: Potassium Chloride (Potassium Chloride 20 Meq Tablet) 40 meq PO BIDCM [facility] Last Admin: 07/27/20 17:33 Dose: 40 meq Documented by: Sodium Chloride (0.9% Saline Lock 10 Ml Syringe) 10 - 40 ml IV UD PRN PRN Reason: SALINE FLUSH Last Admin: 07/27/20 17:16 Dose: 10 ml Documented by: STROKE Vital Signs/Narrative: Vital Signs Pulse Resp Pulse Ox 07/28/20 07:25 59 L 20 H 93 Medical Necessity - Tobacco Use Smoking Status: Former smoker Tobacco Use: Cigarettes Assessment/Plan All Active Problems (Last Reviewed 07/16/20 @ 23:[address] Richard Gaona MD) COVID-19 (Acute) Hypoxia (Acute) Hypokalemia (Acute) Respiratory insufficiency (Acute) 1. Acute hypoxic respiratory failure secondary to acute COVID-19 infection, worsening Patient is currently on Airvo, 55L, FiO2 76% Continue with breathing treatments, po steroids, encourage use of incentive spirometer. Wean off oxygen for SPO2 more than 94% 2. Acute COVID-19 infection, with hypoxia Continue on therapeutic Lovenox, Decadron Completed Remdesivir. 3. Bradycardia, unclear etiology, improved Not on beta-blockers or calcium channel blockers TSH is 0.40. Continue to monitor 4. Acute diarrhea likely secondary to COVID-19 infection, persistent Enteric panel is negative, on Imodium prn 5. Hypokalemia/hypomagnesemia secondary to diarrhea, resolved, recheck in a.m. 6. JARRETT on CKD stage III, prerenal secondary to dehydration, resolved Will trend BMP in a.m. 7. Hypertension, relatively hypotensive, home losartan on hold Continue to monitor 8. Hypothyroidism, continue on synthroid 9. DVT PPx- on therapeutic Lovenox SC Inpatient E&M: [id number] Subs Hosp L2
[2020-07-28] MEDS: Pantoprazole Sodium 40 MG Tablet PO ×2 (08:56→22:17)
[2020-07-28] MEDS: Gabapentin 100 MG Capsule 200 MG PO ×3 (08:56→16:34)
[2020-07-28] MEDS: dexAMETHasone 4 MG Tablet 6 MG PO (08:56)
[2020-07-28] MEDS: Levothyroxine 25 MCG TABLET PO (08:56)
[2020-07-28] MEDS: NYSTATIN 500,000 UNIT/5 ML UDC 500000 UNIT PO ×4 (08:57→22:19)
[2020-07-28] MEDS: Enoxaparin 80 MG/0.8 ML Syringe SC ×2 (08:57→22:17)
[2020-07-28] MEDS: HYDROcodone Bitartrate/Apap 5/325 Tablet PO ×2 (10:39→22:18)
--- NOTE | 2020-07-28 11:31 | CASEMGMT ---
Call from Katy at [facility] pre-auth line and she states the physician has denied the request for pt to go to LTACH at this time. She is aware that therapy notes were sent this am but states she does not feel that will change anything. Dr. Mackenzie is updated at this time and is willing to do a P2P. Call to set up the P2P and they state the next available appt is 07/30/2020 at 1230. Case #[id number]. Contact number option 1 then [address] Mackenzie and pt are updated at this time, voice understanding. Pt's daughter, Yenifer Barrow, states that they should be able to take pt at [facility] in [place] where she is the DON, if LTACH is denied. Katy at [facility] updated at this time as well, voices understanding. Pt voices no further questions/concerns/needs at this time. Nanci WAYNE CM
--- NOTE | 2020-07-28 12:39 | CASEMGMT ---
[facility] does not agree with LTACH. Physician would like to do a peer to peer. Physician said patient's daughter, Yenifer is the data engineer at [facility]. She told physician she could take patient and get an airvo for patient. SW called Yenifer and let her know that insurance is denying the LTACH, but the physician is doing a peer to peer which cannot be done until Sunday. JUN asked Yenifer if they are taking COVID patients and can she get an airvo machine. She said they are looking at referrals for COVID patient's that are 10 days out from the onset of their symptoms. She said she could get an airvo machine. SW told her SW will fax the referral and will keep her informed. Delmis PRICE MSW
--- NOTE | 2020-07-28 18:26 | PN_ITS ---
Patient Problems: Active and Suspected Problems (Last Reviewed 07/16/20 @ 23:[address] Richard Gaona MD) COVID-19 (Acute) Hypoxia (Acute) Hypokalemia (Acute) Respiratory insufficiency (Acute) Subjective: Patient did well overnight. Patient continues to require high flow nasal cannula to maintain saturations. Patient denies any current chest pain and states her appetite is improving. - Physical Exam Vitals/I&O's: Vital Signs Temp Pulse Resp BP Pulse Ox 37.1 C 53 L 18 101/51 L 95 07/28/20 14:34 07/28/20 15:00 07/28/20 14:34 07/28/20 14:34 07/28/20 14:34 Oxygen Flow Rate (L/min) 55 Oxygen Delivery Method Airvo Weight: 80.739 kg Body Mass Index (BMI) 30.5 Intake and Output for Last 24 Hours 07/26/20 07/27/20 07/28/20 23:59 23:59 23:59 Intake Total 1979 / 1979 974 / 974 1060 / 1060 Output Total 400 / 400 350 / 350 625 / 625 Balance 1580 / 1580 624 / 624 435 / 435 General: Alert, Oriented x3, Cooperative, - - Mild to moderate conversational dyspnea. HEENT: Atraumatic, PERRLA, EOMI, Normocephalic, - - No scleral icterus or injection noted Oral: Moist Mucosa, No Gingival or Mucosal Lesions/ Ulcerations Neck: Supple, No JVD, No Nodes, Trachea Midline Lungs: No rhonchi, No wheeze, No rales, Diminished, - - Symmetric expansion Cardiovascular: Normal S1, Normal S2, No murmurs, Bradycardic, No rub noted, No Gallop Abdomen: Bowel Sounds Present, Soft, Non Tender, Non-Distended Extremities: No clubbing, No cyanosis, No edema Skin: No rashes, No breakdown Musculoskeletal: No Tenderness to Palpation of Joints or Extremities Lymphatic: No Cervical, Supraclavicular, or Inguinal Adenopathy Neurological: Cranial nerves II-XII grossly intact, Neuro grossly intact, Motor Exam 5/5 strength throughout Psych/Mental Status: Alert and oriented to time, place, person, mood and affect Laboratory Results 07/28/20 05:40: WBC 12.3 H, RBC 4.75, Hgb 13.6, Hct 41.2, MCV 86.7 D, MCH 28.6, MCHC 33.0, RDW Std Deviation 42.5, RDW Coeff of Brittanie 13.5, Plt Count 256, MPV 10.9, Immature Gran % (Auto) 1.500 H, Neut % (Auto) 85.6 H, Lymph % (Auto) 8.2 L , [place] % (Auto) 4.3, Eos % (Auto) 0.2, Baso % (Auto) 0.2, Absolute Neuts (auto) 10.5 H, Absolute Lymphs (auto) 1.00, Nucleated RBC % 0 07/28/20 05:40: Sodium 138, Potassium 4.2, Chloride 104, Carbon Dioxide 26.0, Anion Gap 8, BUN 37 H, Creatinine 1.03 H, Estim Creat Clear Calc 47.02, Est GFR (MDRD) Af Amer 69, Est GFR (MDRD) Non-Af 57 L, BUN/Creatinine Ratio 35.9 H, Gl ucose 128 H, Calcium 8.8, Total Bilirubin 0.30, AST 21, ALT 52, Alkaline Phosphatase 81, Total Protein 6.6, Albumin 2.5 L, Globulin 4.1, Albumin/Globulin Ratio 0.6 L Current Medications Acetaminophen (Acetaminophen 325 Mg Tablet) 650 mg PO Q6H PRN PRN PRN Reason: Pain Score 1-10/Temp > 100.7 F Last Admin: 07/27/20 08:56 Dose: 650 mg Documented by: Hydrocodone Bitart/Acetaminophen (Hydrocodone Bitartrate/Apap 5/325 Tablet) 2 tablet PO Q4H PRN PRN PRN Reason: pain 4-10 Last Admin: 07/28/20 10:39 Dose: 2 tablet Documented by: Albuterol Sulfate (Albuterol Sulfate 8 Gm Inhaler (60 Puffs)) 2 puff INHALATION Q4H PRN PRN PRN Reason: SOB &/OR WHEEZING Enoxaparin Sodium (Enoxaparin 80 Mg/0.8 Ml Syringe) 80 mg SC BID [facility] Last Admin: 07/28/20 08:57 Dose: 80 mg Documented by: Gabapentin (Gabapentin 100 Mg Capsule) 200 mg PO TIDCM [facility] Last Admin: 07/28/20 16:34 Dose: 200 mg Documented by: Levothyroxine Sodium (Levothyroxine 25 Mcg Tablet) 25 mcg PO DAILY [facility] Last Admin: 07/28/20 08:56 Dose: 25 mcg Documented by: Loperamide HCl (Loperamide 2 Mg Capsule) 2 mg PO Q4H PRN PRN PRN Reason: DIARRHEA/LOOSE STOOLS Last Admin: 07/27/20 08:56 Dose: 2 mg Documented by: Lorazepam (Lorazepam 2 Mg/Ml Syringe) 1 mg IV Q4H PRN PRN PRN Reason: agitation/anxiety with BIPAP Melatonin (Melatonin 3 Mg Tablet) 3 mg PO QHS PRN PRN PRN Reason: INSOMNIA Last Admin: 07/26/20 21:32 Dose: 3 mg Documented by: Nystatin (Nystatin 500,000 Unit/5 Ml Udc) 500,000 unit PO 4X/DAY [facility] Last Admin: 07/28/20 16:33 Dose: 500,000 unit Documented by: Ondansetron HCl (Ondansetron 4 Mg/2 Ml Vial) 4 mg IV Q6H PRN PRN PRN Reason: NAUSEA/VOMITING Pantoprazole Sodium (Pantoprazole Sodium 40 Mg Tablet) 40 mg PO BID [facility] Last Admin: 07/28/20 08:56 Dose: 40 mg Documented by: Potassium Chloride (Potassium Chloride 20 Meq Tablet) 40 meq PO BIDCM [facility] Last Admin: 07/28/20 16:33 Dose: 40 meq Documented by: Sodium Chloride (0.9% Saline Lock 10 Ml Syringe) 10 - 40 ml IV UD PRN PRN Reason: SALINE FLUSH Last Admin: 07/27/20 17:16 Dose: 10 ml Documented by: Medical Necessity - Tobacco Use Smoking Status: Former smoker Tobacco Use: Cigarettes Assessment/Plan All Active Problems (Last Reviewed 07/16/20 @ 23:[address] Richard Gaona MD) COVID-19 (Acute) Hypoxia (Acute) Hypokalemia (Acute) Respiratory insufficiency (Acute) RECOMMENDATIONS: 1. Wean supplemental oxygen to maintain saturations at or above 90%. 2. Continue Lovenox and completed Decadron 10-day treatment course. Remdesivir and plasma have completed. 3. Continue diuretic therapy as tolerated by hemodynamics and renal function. Attempt additional dose of Lasix this evening 4. Encourage incentive spirometer use and mobilize patient as tolerated. IMPRESSIONS: 1. Acute hypoxemic respiratory failure secondary to COVID-19 pneumonia The patient continues to be quite tenuous from a respiratory perspective with high supplemental oxygen requirement, but may be starting to improve. Plan to continue Decadron and therapeutic Lovenox as ordered. The patient has already received convalescent plasma and completed a treatment course of remdesivir. Wean supplemental oxygen to maintain saturations at or above 90%. Encourage incentive spirometer use and mobilize patient as tolerated. Patient's renal function appears to be doing okay at this point. We will continue to monitor renal function on a daily basis. Hold on Lasix for today given increase in creatinine 2. Acute kidney injury/advanced age Complicates care, management, recovery and prognosis. Continue current supportive measures. Inpatient E&M: [id number] [facility] Hosp L3
[2020-07-28] MEDS: MELATONIN 3 MG TABLET PO (22:17)
[2020-07-29] VITALS (16 sets, daily range): BP systolic 95–120; BP diastolic 53–69; PULSE 40–76; RESP 16–20; TEMP 36.2–37.6; O2SAT 88–95
[2020-07-29 06:49] LABS: Absolute Lymphocyte Count 1.13 X10^3/uL (0.83-4.51); Absolute Neutrophil Count 9.1 X10^3/uL (2.0-7.7); Basophil# 0.02 X10^3/uL; Basophil% 0.2 % (0-1); Eosinophil# 0.06 X10^3/uL; Eosinophils% 0.5 % (0-5); Hematocrit 39.1 % (37-47); Hemoglobin 12.8 g/dL (12.0-15.0); Lymphocyte # 1.13 X10^3/ul (4.0); Lymphocyte % 10.1 % (19-41); Mean Corp Hgb Conc 32.7 g/dL (32-36); Mean Corpuscular Volume 88.5 fL (81-99); Mean Platelet Vol. 11.5 fl (6.2-12.0); Monocyte# 0.69 X10^3/uL; Monocyte% 6.2 % (0-10); NRBC Flagged by Analyzer 0 % (0-5); Neutrophil # 9.09 X10^3/uL (2.7-7.7); Neutrophil % 81.3 % (47-70); Platelet Count 272 K/mm3 (150-450); RBC Distribution Width CV 13.7 % (11.6-14.6); RBC Distribution Width SD 43.9 fl (35.1-43.9); Red Blood Count 4.42 M/mm3 (4.2-5.4); White Blood Count 11.2 K/mm3 (4.4-11.0)
[2020-07-29 07:29] LABS: ALB/GLOB Ratio 0.6 RATIO (0.9-2.4); AST(SGOT) 27 U/L (15-37); Alanine Aminotransfer ALT/SGPT 62 U/L (13-56); Albumin, Serum 2.3 g/dL (3.2-5.0); Alkaline Phosphatase 79 U/L (45-117); Anion Gap 5 (5-15); BUN 35 mg/dL (7-18); BUN/Creat Ratio 44.4 RATIO (10-20); Chloride 108 mmol/L (98-107); Creatinine, Serum 0.79 mg/dL (0.55-1.02); EST Glomerular Filtration Rate 78 mL/min (>60); Est Glom Filt Rate - Afr Amer 94 mL/min (>60); Estimated Creatinine Clearance 61.31 ml/min; Globulin 3.7 g/dL (2.2-4.2); Glucose 100 mg/dL (74-106); Potassium 4.5 mmol/L (3.5-5.1); Sodium Level 139 mmol/L (136-145)
--- NOTE | 2020-07-29 07:59 | PCM.PN.HOSP ---
Patient Problems: Active and Suspected Problems (Last Reviewed 07/16/20 @ 23:[address] Richard Gaona MD) COVID-19 (Acute) Hypoxia (Acute) Hypokalemia (Acute) Respiratory insufficiency (Acute) Reason for Visit: Follow-up on respiratory failure/acute COVID-19 pneumonia Subjective: Patient was seen and examined. Not much change from yesterday. Remains high flow oxygen via Airvo. Objective: Physical exam: General: Alert, Oriented x3, Cooperative, - - Mild respiratory distress, on 55L FiO2 60% oxygen HEENT: Atraumatic, PERRLA, EOMI, Normocephalic Neck: Supple, No JVD, Negative Carotid Bruits Lungs: Clear to auscultation, Normal air movement Cardiovascular: Regular rate, No murmurs Abdomen: Bowel Sounds Present, Soft, Non Tender Extremities: No edema, Capillary Refill Less than 3 Seconds Skin: No rashes, No breakdown Musculoskeletal: No Tenderness to Palpation of Joints or Extremities Neurological: Cranial nerves II-XII grossly intact Psych/Mental Status: Normal Affect, Appropriate Vitals/I&O's: Vital Signs Temp Pulse Resp BP Pulse Ox 97.1 F L 43 L 18 120/69 93 07/29/20 03:45 07/29/20 07:04 07/29/20 07:04 07/29/20 03:45 07/29/20 07:04 Oxygen Flow Rate (L/min) 55 Oxygen Delivery Method Airvo Weight: 80.739 kg Body Mass Index (BMI) 30.5 Intake and Output for Last 24 Hours 07/27/20 07/28/20 07/29/20 23:59 23:59 23:59 Intake Total 974 / 974 1300 / 1300 220 / 220 Output Total 350 / 350 625 / 625 Balance 624 / 624 675 / 675 220 / 220 Laboratory Results 07/29/20 05:50: WBC 11.2 H, RBC 4.42, Hgb 12.8, Hct 39.1, MCV 88.5, MCH 29.0, MCHC 32.7, RDW Std Deviation 43.9, RDW Coeff of Brittanie 13.7, Plt Count 272, MPV 11.5, Immature Gran % (Auto) 1.700 H, Neut % (Auto) 81.3 H, Lymph % (Auto) 10.1 L, [place] % (Auto) 6.2, Eos % (Auto) 0.5, Baso % (Auto) 0.2, Absolute Neuts (auto) 9.1 H, Absolute Lymphs (auto) 1.13, Nucleated RBC % 0 07/29/20 05:50: Sodium 139, Potassium 4.5, Chloride 108 H, Carbon Dioxide 26.0, Anion Gap 5, BUN 35 H, Creatinine 0.79, Estim Creat Clear Calc 61.31, Est GFR (MDRD) Af Amer 94, Est GFR (MDRD) Non-Af 78, BUN/Creatinine Ratio 44.4 H, Glucose 100, Calcium 9.0, Total Bilirubin 0.30, AST 27, ALT 62 H, Alkaline Phosphatase 79, Total Protein 6.0 L, Albumin 2.3 L, Globulin 3.7, Albumin/Globulin Ratio 0.6 L Current Medications Acetaminophen (Acetaminophen 325 Mg Tablet) 650 mg PO Q6H PRN PRN PRN Reason: Pain Score 1-10/Temp > 100.7 F Last Admin: 07/27/20 08:56 Dose: 650 mg Documented by: Hydrocodone Bitart/Acetaminophen (Hydrocodone Bitartrate/Apap 5/325 Tablet) 2 tablet PO Q4H PRN PRN PRN Reason: pain 4-10 Last Admin: 07/28/20 22:18 Dose: 2 tablet Documented by: Albuterol Sulfate (Albuterol Sulfate 8 Gm Inhaler (60 Puffs)) 2 puff INHALATION Q4H PRN PRN PRN Reason: SOB &/OR WHEEZING Enoxaparin Sodium (Enoxaparin 80 Mg/0.8 Ml Syringe) 80 mg SC BID [facility] Last Admin: 07/28/20 22:17 Dose: 80 mg Documented by: Gabapentin (Gabapentin 100 Mg Capsule) 200 mg PO TIDCM [facility] [place] Last Admin: 07/28/20 16:34 Dose: 200 mg Documented by: Levothyroxine Sodium (Levothyroxine 25 Mcg Tablet) 25 mcg PO DAILY [facility] [place] Last Admin: 07/28/20 08:56 Dose: 25 mcg Documented by: Loperamide HCl (Loperamide 2 Mg Capsule) 2 mg PO Q4H PRN PRN PRN Reason: DIARRHEA/LOOSE STOOLS Last Admin: 07/27/20 08:56 Dose: 2 mg Documented by: Lorazepam (Lorazepam 2 Mg/Ml Syringe) 1 mg IV Q4H PRN PRN PRN Reason: agitation/anxiety with BIPAP Melatonin (Melatonin 3 Mg Tablet) 3 mg PO QHS PRN PRN PRN Reason: INSOMNIA Last Admin: 07/28/20 22:17 Dose: 3 mg Documented by: Nystatin (Nystatin 500,000 Unit/5 Ml Udc) 500,000 unit PO 4X/DAY [facility] [place] Last Admin: 07/28/20 22:19 Dose: 500,000 unit Documented by: Ondansetron HCl (Ondansetron 4 Mg/2 Ml Vial) 4 mg IV Q6H PRN PRN PRN Reason: NAUSEA/VOMITING Pantoprazole Sodium (Pantoprazole Sodium 40 Mg Tablet) 40 mg PO BID [facility] [place] Last Admin: 07/28/20 22:17 Dose: 40 mg Documented by: Potassium Chloride (Potassium Chloride 20 Meq Tablet) 40 meq PO BIDCM [facility] [place] Last Admin: 07/28/20 16:33 Dose: 40 meq Documented by: Sodium Chloride (0.9% Saline Lock 10 Ml Syringe) 10 - 40 ml IV UD PRN PRN Reason: SALINE FLUSH Last Admin: 07/27/20 17:16 Dose: 10 ml Documented by: STROKE Vital Signs/Narrative: Vital Signs Pulse Resp Pulse Ox 07/29/20 07:04 43 L 18 92 07/29/20 07:00 42 L Medical Necessity - Tobacco Use Smoking Status: Former smoker Tobacco Use: Cigarettes Assessment/Plan All Active Problems (Last Reviewed 07/16/20 @ 23:[address] Richard Gaona MD) COVID-19 (Acute) Hypoxia (Acute) Hypokalemia (Acute) Respiratory insufficiency (Acute) 1. Acute hypoxic respiratory failure secondary to acute COVID-19 infection, minimally improved Patient is currently on Airvo, 55L, FiO2 60% Continue with breathing treatments, po steroids, encourage use of incentive spirometer. Wean off oxygen for SPO2 more than 94% 2. Acute COVID-19 infection, with hypoxia Continue on therapeutic Lovenox, Decadron Completed Remdesivir. 3. Bradycardia, unclear etiology, improved Not on beta-blockers or calcium channel blockers TSH is 0.40. Continue to monitor 4. Acute diarrhea likely secondary to COVID-19 infection, persistent Enteric panel is negative, on Imodium prn 5. Hypokalemia/hypomagnesemia secondary to diarrhea, resolved, recheck in a.m. 6. JARRETT on CKD stage III, prerenal secondary to dehydration, resolved Will trend BMP in a.m. 7. Hypertension, relatively hypotensive, home losartan on hold Continue to monitor 8. Hypothyroidism, continue on synthroid 9. DVT PPx- on therapeutic Lovenox SC Inpatient E&M: [id number] Subs Hosp L2
[2020-07-29] MEDS: Levothyroxine 25 MCG TABLET PO (08:37)
[2020-07-29] MEDS: Pantoprazole Sodium 40 MG Tablet PO ×2 (08:37→20:19)
[2020-07-29] MEDS: NYSTATIN 500,000 UNIT/5 ML UDC 500000 UNIT PO ×4 (08:38→20:19)
[2020-07-29] MEDS: Enoxaparin 80 MG/0.8 ML Syringe SC ×2 (08:38→20:19)
[2020-07-29] MEDS: Gabapentin 100 MG Capsule 200 MG PO ×3 (08:38→18:05)
[2020-07-29] MEDS: HYDROcodone Bitartrate/Apap 5/325 Tablet PO ×3 (08:39→20:20)
--- NOTE | 2020-07-29 17:06 | PCM.PN.PUL ---
Patient Problems: Active and Suspected Problems (Last Reviewed 07/16/20 @ 23:[address] Richard Gaona MD) COVID-19 (Acute) Hypoxia (Acute) Hypokalemia (Acute) Respiratory insufficiency (Acute) Subjective: Patient did okay overnight. Patient was able to work with therapy, but feels extremely fatigued and tired today. Patient thinks this is secondary to working with therapy and states that she did not sleep very well overnight. Patient denies any current chest pain. Patient's diet is slightly improved. Objective: Patient has been able to be weaned to 65% FiO2, but is still requiring Airvo per respiratory. - Physical Exam Vitals/I&O's: Vital Signs Temp Pulse Resp BP Pulse Ox 36.8 C 59 L 16 95/60 93 07/29/20 16:50 07/29/20 16:50 07/29/20 16:50 07/29/20 16:50 07/29/20 16:50 Oxygen Flow Rate (L/min) 55 Oxygen Delivery Method Airvo Weight: 80.739 kg Body Mass Index (BMI) 30.5 Intake and Output for Last 24 Hours 07/27/20 07/28/20 07/29/20 23:59 23:59 23:59 Intake Total 974 / 974 1300 / 1300 220 / 220 Output Total 350 / 350 625 / 625 Balance 624 / 624 675 / 675 220 / 220 General: Alert, Oriented x3, Cooperative, - - Mild conversational dyspnea. Appears tired. HEENT: Atraumatic, PERRLA, EOMI, Normocephalic, - - Slight scleral injection without icterus Oral: Moist Mucosa, No Gingival or Mucosal Lesions/ Ulcerations Neck: Supple, No JVD, No Nodes, Trachea Midline Lungs: No rhonchi, No wheeze, No rales, Diminished Cardiovascular: Regular rate, Regular Rhythm, Normal S1, Normal S2, No murmurs, No rub noted, No Gallop Abdomen: Bowel Sounds Present, Soft, Non Tender, Non-Distended Extremities: No clubbing, No cyanosis, No edema, Capillary Refill Less than 3 Seconds Skin: No rashes, No breakdown Musculoskeletal: No Tenderness to Palpation of Joints or Extremities Lymphatic: No Cervical, Supraclavicular, or Inguinal Adenopathy Neurological: Cranial nerves II-XII grossly intact, Neuro grossly intact, Motor Exam 5/5 strength throughout Psych/Mental Status: Alert and oriented to time, place, person, mood and affect Laboratory Results 07/29/20 05:50: WBC 11.2 H, RBC 4.42, Hgb 12.8, Hct 39.1, MCV 88.5, MCH 29.0, MCHC 32.7, RDW Std Deviation 43.9, RDW Coeff of Brittanie 13.7, Plt Count 272, MPV 11.5, Immature Gran % (Auto) 1.700 H, Neut % (Auto) 81.3 H, Lymph % (Auto) 10.1 L, [place] % (Auto) 6.2, Eos % (Auto) 0.5, Baso % (Auto) 0.2, Absolute Neuts (auto) 9.1 H, Absolute Lymphs (auto) 1.13, Nucleated RBC % 0 07/29/20 05:50: Sodium 139, Potassium 4.5, Chloride 108 H, Carbon Dioxide 26.0, Anion Gap 5, BUN 35 H, Creatinine 0.79, Estim Creat Clear Calc 61.31, Est GFR (MDRD) Af Amer 94, Est GFR (MDRD) Non-Af 78, BUN/Creatinine Ratio 44.4 H, Glucose 100, Calcium 9.0, Total Bilirubin 0.30, AST 27, ALT 62 H, Alkaline Phosphatase 79, Total Protein 6.0 L, Albumin 2.3 L, Globulin 3.7, Albumin/Globulin Ratio 0.6 L Current Medications Acetaminophen (Acetaminophen 325 Mg Tablet) 650 mg PO Q6H PRN PRN PRN Reason: Pain Score 1-10/Temp > 100.7 F Last Admin: 07/27/20 08:56 Dose: 650 mg Documented by: Hydrocodone Bitart/Acetaminophen (Hydrocodone Bitartrate/Apap 5/325 Tablet) 2 tablet PO Q4H PRN PRN PRN Reason: pain 4-10 Last Admin: 07/29/20 12:39 Dose: 2 tablet Documented by: Albuterol Sulfate (Albuterol Sulfate 8 Gm Inhaler (60 Puffs)) 2 puff INHALATION Q4H PRN PRN PRN Reason: SOB &/OR WHEEZING Enoxaparin Sodium (Enoxaparin 80 Mg/0.8 Ml Syringe) 80 mg SC BID [facility] Last Admin: 07/29/20 08:38 Dose: 80 mg Documented by: Gabapentin (Gabapentin 100 Mg Capsule) 200 mg PO TIDCM [facility] Last Admin: 07/29/20 12:36 Dose: 200 mg Documented by: Levothyroxine Sodium (Levothyroxine 25 Mcg Tablet) 25 mcg PO DAILY [facility] Last Admin: 07/29/20 08:37 Dose: 25 mcg Documented by: Loperamide HCl (Loperamide 2 Mg Capsule) 2 mg PO Q4H PRN PRN PRN Reason: DIARRHEA/LOOSE STOOLS Last Admin: 07/27/20 08:56 Dose: 2 mg Documented by: Lorazepam (Lorazepam 2 Mg/Ml Syringe) 1 mg IV Q4H PRN PRN PRN Reason: agitation/anxiety with BIPAP Melatonin (Melatonin 3 Mg Tablet) 3 mg PO QHS PRN PRN PRN Reason: INSOMNIA Last Admin: 07/28/20 22:17 Dose: 3 mg Documented by: Nystatin (Nystatin 500,000 Unit/5 Ml Udc) 500,000 unit PO 4X/DAY [facility] Last Admin: 07/29/20 15:13 Dose: 500,000 unit Documented by: Ondansetron HCl (Ondansetron 4 Mg/2 Ml Vial) 4 mg IV Q6H PRN PRN PRN Reason: NAUSEA/VOMITING Pantoprazole Sodium (Pantoprazole Sodium 40 Mg Tablet) 40 mg PO BID [facility] Last Admin: 07/29/20 08:37 Dose: 40 mg Documented by: Potassium Chloride (Potassium Chloride 20 Meq Tablet) 40 meq PO BIDCM [facility] Last Admin: 07/29/20 08:37 Dose: 40 meq Documented by: Sodium Chloride (0.9% Saline Lock 10 Ml Syringe) 10 - 40 ml IV UD PRN PRN Reason: SALINE FLUSH Last Admin: 07/27/20 17:16 Dose: 10 ml Documented by: Medical Necessity - Tobacco Use Smoking Status: Former smoker Tobacco Use: Cigarettes Assessment/Plan All Active Problems (Last Reviewed 07/16/20 @ 23:[address] Richard Gaona MD) COVID-19 (Acute) Hypoxia (Acute) Hypokalemia (Acute) Respiratory insufficiency (Acute) RECOMMENDATIONS: 1. Wean supplemental oxygen to maintain saturations at or above 90%. Attempt transition to low flow nasal cannula once on 60% Airvo 2. Continue Lovenox. Completed Decadron 10-day treatment course, Remdesivir and plasma. 3. Continue diuretic therapy as tolerated by hemodynamics and renal function. Attempt additional dose of Lasix as tolerated 4. Encourage incentive spirometer use and mobilize patient as tolerated. IMPRESSIONS: 1. Acute hypoxemic respiratory failure secondary to COVID-19 pneumonia The patient continues to be quite tenuous from a respiratory perspective with high supplemental oxygen requirement, but may be starting to improve. Plan to continue Decadron and therapeutic Lovenox as ordered. The patient has already received convalescent plasma and completed a treatment course of remdesivir. Wean supplemental oxygen to maintain saturations at or above 90%. Encourage incentive spirometer use and mobilize patient as tolerated. Patient's renal function appears to be doing okay at this point. We will continue to monitor renal function on a daily basis. Possibly dose with Lasix tomorrow. 2. Acute kidney injury/advanced age Complicates care, management, recovery and prognosis. Continue current supportive measures. Inpatient E&M: [id number] [facility] Hosp L3
[2020-07-29] MEDS: MELATONIN 3 MG TABLET PO (20:19)
[2020-07-30] VITALS (15 sets, daily range): BP systolic 91–105; BP diastolic 50–64; PULSE 53–83; RESP 18–24; TEMP 36.6–38; O2SAT 91–95
[2020-07-30] MEDS: HYDROcodone Bitartrate/Apap 5/325 Tablet PO ×2 (06:10→21:28)
--- NOTE | 2020-07-30 07:37 | PN_ITS ---
Patient Problems: Active and Suspected Problems (Last Reviewed 07/16/20 @ 23:[address] Richard Gaona MD) COVID-19 (Acute) Hypoxia (Acute) Hypokalemia (Acute) Respiratory insufficiency (Acute) Reason for Visit: Follow-up on respiratory failure/acute COVID-19 pneumonia Subjective: Patient was seen and examined. She feels slightly unwell. Denies fever or chills. Her oxygen requirements have not improved. She has started to have low grade fever. Objective: Physical exam: General: Alert, Oriented x3, Cooperative, - - Mild respiratory distress, on 55L FiO2 70% oxygen HEENT: Atraumatic, PERRLA, EOMI, Normocephalic Neck: Supple, No JVD, Negative Carotid Bruits Lungs: Clear to auscultation, Normal air movement Cardiovascular: Regular rate, No murmurs Abdomen: Bowel Sounds Present, Soft, Non Tender Extremities: No edema, Capillary Refill Less than 3 Seconds Skin: No rashes, No breakdown Musculoskeletal: No Tenderness to Palpation of Joints or Extremities Neurological: Cranial nerves II-XII grossly intact Psych/Mental Status: Normal Affect, Appropriate Vitals/I&O's: Vital Signs Temp Pulse Resp BP Pulse Ox 100.4 F H 63 20 H 99/50 L 91 07/30/20 05:45 07/30/20 05:45 07/30/20 05:45 07/30/20 05:45 07/30/20 05:45 Oxygen Flow Rate (L/min) 55 Oxygen Delivery Method Airvo Weight: 78.3 kg Body Mass Index (BMI) 30.5 Intake and Output for Last 24 Hours 07/28/20 07/29/20 07/30/20 23:59 23:59 23:59 Intake Total 1300 / 1300 220 / 440 620 / 620 Output Total 625 / 625 600 / 600 Balance 675 / 675 220 / 440 Current Medications Acetaminophen (Acetaminophen 325 Mg Tablet) 650 mg PO Q6H PRN PRN PRN Reason: Pain Score 1-10/Temp > 100.7 F Last Admin: 07/27/20 08:56 Dose: 650 mg Documented by: Hydrocodone Bitart/Acetaminophen (Hydrocodone Bitartrate/Apap 5/325 Tablet) 2 tablet PO Q4H PRN PRN PRN Reason: pain 4-10 Last Admin: 07/30/20 06:10 Dose: 2 tablet Documented by: Albuterol Sulfate (Albuterol Sulfate 8 Gm Inhaler (60 Puffs)) 2 puff INHALATION Q4H PRN PRN PRN Reason: SOB &/OR WHEEZING Enoxaparin Sodium (Enoxaparin 80 Mg/0.8 Ml Syringe) 80 mg SC BID [facility]PLACED [facility] Last Admin: 07/29/20 20:19 Dose: 80 mg Documented by: Gabapentin (Gabapentin 100 Mg Capsule) 200 mg PO TIDCM REPLACED BY [facility] Last Admin: 07/29/20 18:05 Dose: 200 mg Documented by: Levothyroxine Sodium (Levothyroxine 25 Mcg Tablet) 25 mcg PO DAILY [facility]PLACED [facility] Last Admin: 07/29/20 08:37 Dose: 25 mcg Documented by: Loperamide HCl (Loperamide 2 Mg Capsule) 2 mg PO Q4H PRN PRN PRN Reason: DIARRHEA/LOOSE STOOLS Last Admin: 07/27/20 08:56 Dose: 2 mg Documented by: Lorazepam (Lorazepam 2 Mg/Ml Syringe) 1 mg IV Q4H PRN PRN PRN Reason: agitation/anxiety with BIPAP Melatonin (Melatonin 3 Mg Tablet) 3 mg PO QHS PRN PRN PRN Reason: INSOMNIA Last Admin: 07/29/20 20:19 Dose: 3 mg Documented by: Nystatin (Nystatin 500,000 Unit/5 Ml Udc) 500,000 unit PO 4X/DAY REPLACED BY [facility] Last Admin: 07/29/20 20:19 Dose: 500,000 unit Documented by: Ondansetron HCl (Ondansetron 4 Mg/2 Ml Vial) 4 mg IV Q6H PRN PRN PRN Reason: NAUSEA/VOMITING Pantoprazole Sodium (Pantoprazole Sodium 40 Mg Tablet) 40 mg PO BID REPLACED BY [facility] Last Admin: 07/29/20 20:19 Dose: 40 mg Documented by: Potassium Chloride (Potassium Chloride 20 Meq Tablet) 40 meq PO BIDCM REPLACED BY [facility] Last Admin: 07/29/20 18:05 Dose: 40 meq Documented by: Sodium Chloride (0.9% Saline Lock 10 Ml Syringe) 10 - 40 ml IV UD PRN PRN Reason: SALINE FLUSH Last Admin: 07/27/20 17:16 Dose: 10 ml Documented by: STROKE Vital Signs/Narrative: Vital Signs Temp Pulse Resp BP Pulse Ox 07/30/20 05:45 100.4 F H 63 20 H 99/50 L 91 Medical Necessity - Tobacco Use Smoking Status: Former smoker Tobacco Use: Cigarettes Assessment/Plan All Active Problems (Last Reviewed 07/16/20 @ 23:[address] Richard Gaona MD) COVID-19 (Acute) Hypoxia (Acute) Hypokalemia (Acute) Respiratory insufficiency (Acute) 1. Acute hypoxic respiratory failure secondary to acute COVID-19 infection, minimally improved Patient is currently on Airvo, 55L, FiO2 60% Continue with breathing treatments, po steroids, encourage use of incentive spirometer. Wean off oxygen for SPO2 more than 94% 2. Acute COVID-19 infection, with hypoxia Continue on therapeutic Lovenox. Completed Remdesivir and decadron. 3. Bradycardia, unclear etiology, improved Not on beta-blockers or calcium channel blockers. TSH is 0.40. Continue to monitor 4. Acute diarrhea likely secondary to COVID-19 infection, persistent Enteric panel is negative, on Imodium prn 5. Hypokalemia/hypomagnesemia secondary to diarrhea, resolved, recheck in a.m. 6. JARRETT on CKD stage III, prerenal secondary to dehydration, resolved Will trend BMP in a.m. 7. Hypertension, relatively hypotensive, home losartan on hold Continue to monitor 8. Hypothyroidism, continue on Synthroid 9. DVT PPx- on therapeutic Lovenox SC Inpatient E&M: 39843 Subs Hosp L2
[2020-07-30] MEDS: Levothyroxine 25 MCG TABLET PO (08:53)
[2020-07-30] MEDS: Gabapentin 100 MG Capsule 200 MG PO ×3 (08:53→16:43)
[2020-07-30] MEDS: Pantoprazole Sodium 40 MG Tablet PO ×2 (08:53→21:28)
[2020-07-30] MEDS: Enoxaparin 80 MG/0.8 ML Syringe SC ×2 (08:54→21:28)
[2020-07-30] MEDS: NYSTATIN 500,000 UNIT/5 ML UDC 500000 UNIT PO ×4 (08:54→21:28)
--- NOTE | 2020-07-30 09:45 | CASEMGMT ---
Yenifer from [facility] called to inquire about pt. SW called her back, explained that the physician is doing a peer to peer review for pt with insurance to see if the LTACH denial can be overturned. JUN asked Yenifer if they can manage the airvo. She explained that they can order it, and they have a respiratory therapist who can train the nurses and is marketing operations associate. Yenifer states they spoke w/the oxygen company and they feel they can manage this. She is also this pt's step-daughter, and she states if the physician would prefer she go elsewhere, family is open to this. It is this SW's understanding that none of the nursing homes taking COVID patients will take patients on anything other than oxygen via NC. SW will await the appeal with the physician at 12:30pm and then follow up accordingly, depending on the result of the appeal. AMARI Selby
--- NOTE | 2020-07-30 13:14 | CASEMGMT ---
Physician did peer to peer with physician from insurance. They asked for updated information, but at this time it seems the denial is upheld, wants to review updates. As of now the LTACH is denied. As per physician, pt is not ready for discharge to a skilled nursing level of care, and will be here through the weekend. SW called step daughter Yenifer, let her know the above. JUN explained we will call around to see if any other facilities will take pt w/COVID on air, who already have the training. JUN will continue to follow. AMARI Selby
--- NOTE | 2020-07-30 13:16 | CASEMGMT ---
Addendum entered by Carlie Archer 07/30/20 15:10: Call back from Katy at [facility] stating that an appeal can be completed. Advised Katy that we will wait will sunday to reassess, d/t fever and pending CT scan at this time, voices understanding. Katy states she will call this RN CM back on sunday. Nanci WAYNE CM Addendum entered by Carlie Archer 07/30/20 14:31: Katy at [facility] pre-auth [phone]. Nanci WAYNE CM Addendum entered by Carlie Archer 07/30/20 13:42: Updated therapy notes and vitals faxed to [facility] pre-auth number at this time. Nanci WAYNE CM Original Note: Pt updated on LTACH P2P result at this time, voices understanding. Pt was febrile overnight so Dr. Mackenzie would like to keep pt over weekend anyways at this time and pt is aware, voices understanding. Pt to also have CT chest d/t increased WBC/febrile, inability to wean off airvo. Pt aware to ask RN for CM for any further questions/concerns/needs at this time. Nanci WAYNE CM
--- NOTE | 2020-07-30 13:25 | RAD_ITS ---
STUDY: X-RAY CHEST REASON FOR EXAM: Female, 64 years old. HYPOXIA, POSITIVE COVID 19. TECHNIQUE: Single AP portable view of the chest. COMPARISON: Comparison is made with prior study dated 07/16/2020. FINDINGS: EKG electrode are seen. There now is evidence of a diffuse bilateral pulmonary infiltrates worse in the left lower lobe. These infiltrates have a peripheral distribution suggestive of Covid infection. There is no demonstrated pleural abnormality. Normal size heart. Normal mediastinum and trell. Normal visualized pulmonary arteries. There is atherosclerotic calcification of the aortic arch with tortuosity. There are degenerative changes of the visualized thoracic spine. Normal visualized ribs, clavicles, and shoulders. There is no demonstrated abnormality of the visualized soft tissue structures of the upper abdomen. RAD/Chest 1 View (Portable) IMPRESSION: New bilateral pulmonary infiltrates worse in the left lower lobe with a peripheral distribution. Follow-up is recommended. Electronically Signed: Jesus Solitario, at 14:00 EST , Service support ,
--- NOTE | 2020-07-30 13:37 | CT_ITS ---
STUDY: CTA CHEST REASON FOR EXAM: Female, 64 years old. PE? + COVID, HYPOXIA RADIATION DOSAGE (If Supplied By Facility): CTDIvol = ( 20.38 ) mGy, DLP = ( 578.86 ) mGycm TECHNIQUE: The examination was performed with the intravenous administration of IV 100ML ISOVUE 300. Post-processing of the angiographic images was performed, with multiplanar reformation and 3D reconstruction. Individualized dose optimization techniques were used for this CT. COMPARISON: None. FINDINGS: Small nonocclusive intraluminal filling defects are seen in the branches of the upper lobe pulmonary arteries slightly more prominent on the left side. Normal thoracic aorta and visualized great vessels. There is no demonstrated aortic dissection. Normal heart and pericardium. Normal mediastinum. Normal hilar regions. Normal visualized trachea and bronchi. The lungs are well expanded. Diffuse bilateral increased interstitial markings with areas of confluence worse in the lower lobes. This is suggestive of superimposed bilateral pneumonic infiltrates on possible vascular congestion. This was not seen on prior chest radiograph dated 07/16/2020. Calcified granuloma in the posterior segment of the right lower lobe. Normal chest wall structures. There are degenerative changes of thoracic spine. Normal visualized upper abdomen. CT/CTA Chest W/WO Contrast IMPRESSION: Nonocclusive pulmonary emboli in the upper lobe pulmonary artery. Diffuse increased interstitial markings involving both lungs worse in the lower lobes with areas of confluence. Follow-up is recommended. Electronically Signed: Jesus Solitario, at 14:28 EST , Service support ,
[2020-07-30 13:55] LABS: Absolute Lymphocyte Count 0.74 X10^3/uL (0.83-4.51); Absolute Neutrophil Count 7.2 X10^3/uL (2.0-7.7); Basophil# 0.01 X10^3/uL; Basophil% 0.1 % (0-1); Eosinophil# 0.02 X10^3/uL; Eosinophils% 0.2 % (0-5); Hematocrit 39.1 % (37-47); Lymphocyte # 0.74 X10^3/ul (4.0); Lymphocyte % 8.6 % (19-41); Mean Corp Hgb Conc 33.2 g/dL (32-36); Mean Corpuscular Hgb 29.3 pg (27.0-32.0); Mean Corpuscular Volume 88.3 fL (81-99); Mean Platelet Vol. 10.8 fl (6.2-12.0); Monocyte# 0.46 X10^3/uL; Monocyte% 5.4 % (0-10); NRBC Flagged by Analyzer 0 % (0-5); Neutrophil # 7.17 X10^3/uL (2.7-7.7); Neutrophil % 83.8 % (47-70); Platelet Count 258 K/mm3 (150-450); RBC Distribution Width SD 44.5 fl (35.1-43.9); Red Blood Count 4.43 M/mm3 (4.2-5.4); White Blood Count 8.6 K/mm3 (4.4-11.0)
--- NOTE | 2020-07-30 14:14 | PCM.PN.PUL ---
Patient Problems: Active and Suspected Problems (Last Reviewed 07/16/20 @ 23:[address] Richard Gaona MD) COVID-19 (Acute) Hypoxia (Acute) Hypokalemia (Acute) Respiratory insufficiency (Acute) Subjective: Patient sitting at the chair during my evaluation with accessory muscle use. Patient states she had just moved from the bed and was feeling more short of breath. Patient was frustrated that she continues to require Airvo to maintain saturations. Objective: Chest x-ray was obtained showing increasing bilateral infiltrates. CT scan of the chest was subsequently ordered and formal interpretation is currently pending. Patient appears to have no PE, but has extensive interstitial infiltrates bilaterally suggestive of fibrotic transformation of ARDS. Patient does have some alveolar infiltrate of the lower lobes and some associated adenopathy. - Physical Exam Vitals/I&O's: Vital Signs Temp Pulse Resp BP Pulse Ox 36.6 C 69 20 H 97/57 L 95 07/30/20 08:49 07/30/20 08:49 07/30/20 08:49 07/30/20 08:49 07/30/20 12:26 Oxygen Flow Rate (L/min) 55 Oxygen Delivery Method Airvo Weight: 78.3 kg Body Mass Index (BMI) 30.5 Intake and Output for Last 24 Hours 07/28/20 07/29/20 07/30/20 23:59 23:59 23:59 Intake Total 1300 / 1300 220 / 440 860 / 860 Output Total 625 / 625 600 / 600 Balance 675 / 675 220 / 440 260 / 260 General: Alert, Oriented x3, Cooperative, - - Moderate conversational dyspnea. HEENT: Atraumatic, PERRLA, EOMI, Normocephalic, - - No scleral icterus or injection noted Oral: Moist Mucosa, No Gingival or Mucosal Lesions/ Ulcerations Neck: Supple, No JVD, No Nodes, Trachea Midline Lungs: No rhonchi, No wheeze, No rales, Diminished, - - Symmetric expansion. Cardiovascular: Normal S1, Normal S2, No murmurs, Bradycardic, No rub noted, No Gallop Abdomen: Bowel Sounds Present, Soft, Non Tender, Non-Distended Extremities: No clubbing, No cyanosis, No edema Skin: No rashes, No breakdown Musculoskeletal: No Tenderness to Palpation of Joints or Extremities Lymphatic: No Cervical, Supraclavicular, or Inguinal Adenopathy Neurological: Cranial nerves II-XII grossly intact, Neuro grossly intact, Motor Exam 5/5 strength throughout Psych/Mental Status: Anxious, Restless Laboratory Results 07/30/20 13:40: WBC 8.6, RBC 4.43, Hgb 13.0, Hct 39.1, MCV 88.3, MCH 29.3, MCHC 33.2, RDW Std Deviation 44.5 H, RDW Coeff of Brittanie 14.0, Plt Count 258, MPV 10.8, Immature Gran % (Auto) 1.900 H, Neut % (Auto) 83.8 H, Lymph % (Auto) 8.6 L, Barnwell % (Auto) 5.4, Eos % (Auto) 0.2, Baso % (Auto) 0.1, Absolute Neuts (auto) 7.2, Absolute Lymphs (auto) 0.74 L, Nucleated RBC % 0 Current Medications Acetaminophen (Acetaminophen 325 Mg Tablet) 650 mg PO Q6H PRN PRN PRN Reason: Pain Score 1-10/Temp > 100.7 F Last Admin: 07/27/20 08:56 Dose: 650 mg Documented by: Hydrocodone Bitart/Acetaminophen (Hydrocodone Bitartrate/Apap 5/325 Tablet) 2 tablet PO Q4H PRN PRN PRN Reason: pain 4-10 Last Admin: 07/30/20 06:10 Dose: 2 tablet Documented by: Albuterol Sulfate (Albuterol Sulfate 8 Gm Inhaler (60 Puffs)) 2 puff INHALATION Q4H PRN PRN PRN Reason: SOB &/OR WHEEZING Enoxaparin Sodium (Enoxaparin 80 Mg/0.8 Ml Syringe) 80 mg SC BID [facility] Last Admin: 07/30/20 08:54 Dose: 80 mg Documented by: Gabapentin (Gabapentin 100 Mg Capsule) 200 mg PO TIDCM [facility] Last Admin: 07/30/20 12:49 Dose: 200 mg Documented by: Vancomycin IV Pharmacy to Dose (1 ea/ Sodium Chloride) 500 mls @ 250 mls/hr IV X1 PRN; Protocol PRN Reason: Rx to Dose Sodium Chloride () 1,000 mls @ 75 mls/hr IV .[id number] [facility] Piperacillin Sod/Tazobactam (Sod 3.375 gm/ Sodium Chloride) 50 mls @ 12.5 mls/hr IV Q8 DIAZ Vancomycin HCl 1,250 mg/ (Sodium Chloride) 275 mls @ 167 mls/hr IV X1 ONE Stop: 07/30/20 14:38 Levothyroxine Sodium (Levothyroxine 25 Mcg Tablet) 25 mcg PO DAILY [facility] Last Admin: 07/30/20 08:53 Dose: 25 mcg Documented by: Loperamide HCl (Loperamide 2 Mg Capsule) 2 mg PO Q4H PRN PRN PRN Reason: DIARRHEA/LOOSE STOOLS Last Admin: 07/27/20 08:56 Dose: 2 mg Documented by: Lorazepam (Lorazepam 2 Mg/Ml Syringe) 1 mg IV Q4H PRN PRN PRN Reason: agitation/anxiety with BIPAP Melatonin (Melatonin 3 Mg Tablet) 3 mg PO QHS PRN PRN PRN Reason: INSOMNIA Last Admin: 07/29/20 20:19 Dose: 3 mg Documented by: Nystatin (Nystatin 500,000 Unit/5 Ml Udc) 500,000 unit PO 4X/DAY [facility] Last Admin: 07/30/20 12:49 Dose: 500,000 unit Documented by: Ondansetron HCl (Ondansetron 4 Mg/2 Ml Vial) 4 mg IV Q6H PRN PRN PRN Reason: NAUSEA/VOMITING Pantoprazole Sodium (Pantoprazole Sodium 40 Mg Tablet) 40 mg PO BID [facility] Last Admin: 07/30/20 08:53 Dose: 40 mg Documented by: Potassium Chloride (Potassium Chloride 20 Meq Tablet) 40 meq PO BIDCM [facility] Last Admin: 07/30/20 08:52 Dose: 40 meq Documented by: Sodium Chloride (0.9% Saline Lock 10 Ml Syringe) 10 - 40 ml IV UD PRN PRN Reason: SALINE FLUSH Last Admin: 07/27/20 17:16 Dose: 10 ml Documented by: Clinical Impression(s) from Imaging Studies Chest X-Ray 07/30/20 13:25 IMPRESSION: New bilateral pulmonary infiltrates worse in the left lower lobe with a peripheral distribution. Follow-up is recommended. Electronically Signed: Jesus Solitario, at 14:00 EST , Service support , Medical Necessity - Tobacco Use Smoking Status: Former smoker Tobacco Use: Cigarettes Assessment/Plan All Active Problems (Last Reviewed 07/16/20 @ 23:[address] Richard Gaona MD) COVID-19 (Acute) Hypoxia (Acute) Hypokalemia (Acute) Respiratory insufficiency (Acute) RECOMMENDATIONS: 1. Wean supplemental oxygen to maintain saturations at or above 90%. 2. Continue Lovenox. Completed Decadron 10-day treatment course, Remdesivir and plasma. 3. Continue diuretic therapy as tolerated by hemodynamics and renal function. Attempt additional dose of Lasix as tolerated 4. Encourage incentive spirometer use and mobilize patient as tolerated. 5. Reinitiate antibiotics per infectious disease IMPRESSIONS: 1. Acute hypoxemic respiratory failure secondary to COVID-19 pneumonia The patient continues to be quite tenuous from a respiratory perspective with high supplemental oxygen requirement, but may be starting to improve. Plan to continue Decadron and therapeutic Lovenox as ordered. The patient has completed a complete course for COVID-19 per the newest recommendations but fails to improve on oxygenation despite multiple diuretic challenges. Chest x-ray showed progressive bilateral infiltrates and the patient did have a small fever overnight. Recommend having repeat evaluation by infectious disease. CT scan of the chest is concerning for fibrotic changes as a result of ARDS secondary to COVID-19. Anticipate protracted recovery with high oxygen requirements. Patient is a full code and wants aggressive measures completed. Patient is willing to do rehab if I have enough oxygen. Patient has been stable for the last 5 days and would be a good candidate for an LTAC in my opinion. Patient is requiring too much oxygen to be managed in extended-care facility. 2. Acute kidney injury/advanced age Complicates care, management, recovery and prognosis. Continue current supportive measures. Inpatient E&M: [id number] [facility] L[facility]
[2020-07-30] MEDS: 0.9% Normal Saline 1,000 ML 75 ML IV (14:33)
[2020-07-30 14:55] LABS: Procalcitonin 0.13 ng/mL (0.00-0.09)
--- NOTE | 2020-07-30 15:35 | PCM.RX.CS ---
Consult Pharmacy has been consulted to manage selected antiobiotic: Vancomycin Type of Consult: New start Suspected Infection: Pneumonia Prior Doses of Antibiotics Received/Current Regimen: 1 INITIAL DOSE OF 1250MG 07/30/20 AT 1433 Labs: Sodium 139 mmol/L (136-145) 07/29/20 05:50 Potassium 4.5 mmol/L (3.5-5.1) 07/29/20 05:50 Chloride 108 mmol/L (98-107) H 07/29/20 05:50 Carbon Dioxide 26.0 mmol/L (21.0-32.0) 07/29/20 05:50 Anion Gap 5 (5-15) 07/29/20 05:50 BUN 35 mg/dL (7-18) H 07/29/20 05:50 Creatinine 0.79 mg/dL (0.55-1.02) 07/29/20 05:50 Est GFR (MDRD) Af Amer 94 mL/min (>60) 07/29/20 05:50 Est GFR (MDRD) Non-Af 78 mL/min (>60) 07/29/20 05:50 BUN/Creatinine Ratio 44.4 RATIO (10-20) H 07/29/20 05:50 Glucose 100 mg/dL (74-106) 07/29/20 05:50 Microbiology: Microbiology 07/16/20 18:25 Blood Culture (Wb) - Anticubital Left Blood Culture - Final No growth in 5 days. 07/16/20 18:15 Blood Culture (Wb) - Left Forearm Blood Culture - Final No growth in 5 days. 07/19/20 Unknown Stool Enteric Bacteriology - Final Weight used for dosin.3 kg Estimated Creatinine Clearance: 61 Goal Trough: 10-15 mcg/mL Pharmacy Plan for Drug Dosing: Pharmacy Service will continue to monitor and adjust dosing as required. VANCOMYCIN IV 750MG Q12H, TROUGH LEVEL ORDERED PRIOR TO 4TH DOSE = 08/01/20 AT 0200 Follow-Up Labs: Trough Vancomycin - 08/01/20 0200 Labs to be done on [date and time ordered]: TROUGH LEVEL ORDERED FOR 08/01/20 AT 0200
--- NOTE | 2020-07-30 16:01 | PN.ID_ITS ---
Patient Problems: Active and Suspected Problems (Last Reviewed 07/16/20 @ 23:[address] Richard Gaona MD) COVID-19 (Acute) Hypoxia (Acute) Hypokalemia (Acute) Respiratory insufficiency (Acute) Subjective: Parsons worse overnight with new fever, chills. Breathing about the same. No abd pain, no diarrhea. - Physical Exam Vitals/I&O's: Vital Signs Temp Pulse Resp BP Pulse Ox 98.4 F 66 18 105/64 94 07/30/20 14:39 07/30/20 14:39 07/30/20 14:39 07/30/20 14:39 07/30/20 14:39 Oxygen Flow Rate (L/min) 55 Oxygen Delivery Method Airvo Weight: 78.3 kg Body Mass Index (BMI) 30.5 Intake and Output for Last 24 Hours 07/28/20 07/29/20 07/30/20 23:59 23:59 23:59 Intake Total 1300 / 1300 220 / 440 860 / 860 Output Total 625 / 625 600 / 600 Balance 675 / 675 220 / 440 260 / 260 General: Alert, Cooperative Lungs: Diminished Cardiovascular: Regular rate, Regular Rhythm Abdomen: Soft, Non Tender, Non-Distended Skin: No rashes Laboratory Results 07/30/20 13:40: WBC 8.6, RBC 4.43, Hgb 13.0, Hct 39.1, MCV 88.3, MCH 29.3, MCHC 33.2, RDW Std Deviation 44.5 H, RDW Coeff of Brittanie 14.0, Plt Count 258, MPV 10.8, Immature Gran % (Auto) 1.900 H, Neut % (Auto) 83.8 H, Lymph % (Auto) 8.6 L, Mckenzie % (Auto) 5.4, Eos % (Auto) 0.2, Baso % (Auto) 0.1, Absolute Neuts (auto) 7.2, Absolute Lymphs (auto) 0.74 L, Nucleated RBC % 0 07/30/20 13:40: Procalcitonin 0.13 H Current Medications Acetaminophen (Acetaminophen 325 Mg Tablet) 650 mg PO Q6H PRN PRN PRN Reason: Pain Score 1-10/Temp > 100.7 F Last Admin: 07/27/20 08:56 Dose: 650 mg Documented by: Hydrocodone Bitart/Acetaminophen (Hydrocodone Bitartrate/Apap 5/325 Tablet) 2 tablet PO Q4H PRN PRN PRN Reason: pain 4-10 Last Admin: 07/30/20 06:10 Dose: 2 tablet Documented by: Albuterol Sulfate (Albuterol Sulfate 8 Gm Inhaler (60 Puffs)) 2 puff INHALATION Q4H PRN PRN PRN Reason: SOB &/OR WHEEZING Enoxaparin Sodium (Enoxaparin 80 Mg/0.8 Ml Syringe) 80 mg SC BID [facility] Last Admin: 07/30/20 08:54 Dose: 80 mg Documented by: Gabapentin (Gabapentin 100 Mg Capsule) 200 mg PO TIDCM [facility] Last Admin: 07/30/20 12:49 Dose: 200 mg Documented by: Vancomycin IV Pharmacy to Dose (1 ea/ Sodium Chloride) 500 mls @ 250 mls/hr IV X1 PRN; Protocol PRN Reason: RX TO DOSE Sodium Chloride () 1,000 mls @ 75 mls/hr IV .[id number] [facility] Last Admin: 07/30/20 14:33 Dose: 75 mls/hr Documented by: Piperacillin Sod/Tazobactam (Sod 3.375 gm/ Sodium Chloride) 50 mls @ 12.5 mls/hr IV Q8 [facility] Vancomycin HCl 750 mg/ Sodium (Chloride) 265 mls @ 250 mls/hr IV Q12H [facility] Levothyroxine Sodium (Levothyroxine 25 Mcg Tablet) 25 mcg PO DAILY [facility] Last Admin: 07/30/20 08:53 Dose: 25 mcg Documented by: Loperamide HCl (Loperamide 2 Mg Capsule) 2 mg PO Q4H PRN PRN PRN Reason: DIARRHEA/LOOSE STOOLS Last Admin: 07/27/20 08:56 Dose: 2 mg Documented by: Lorazepam (Lorazepam 2 Mg/Ml Syringe) 1 mg IV Q4H PRN PRN PRN Reason: agitation/anxiety with BIPAP Melatonin (Melatonin 3 Mg Tablet) 3 mg PO QHS PRN PRN PRN Reason: INSOMNIA Last Admin: 07/29/20 20:19 Dose: 3 mg Documented by: Nystatin (Nystatin 500,000 Unit/5 Ml Udc) 500,000 unit PO 4X/DAY [facility] Last Admin: 07/30/20 12:49 Dose: 500,000 unit Documented by: Ondansetron HCl (Ondansetron 4 Mg/2 Ml Vial) 4 mg IV Q6H PRN PRN PRN Reason: NAUSEA/VOMITING Pantoprazole Sodium (Pantoprazole Sodium 40 Mg Tablet) 40 mg PO BID [facility] Last Admin: 07/30/20 08:53 Dose: 40 mg Documented by: Potassium Chloride ([facility] 20 [facility]t) [facility] Last Admin: 07/30/20 08:52 Dose: 40 meq Documented by: Sodium Chloride (0.9% Saline Lock 10 Ml Syringe) 10 - 40 ml IV UD PRN PRN Reason: SALINE FLUSH Last Admin: 07/27/20 17:16 Dose: 10 ml Documented by: Medical Necessity - Tobacco Use Smoking Status: Former smoker Tobacco Use: Cigarettes Route of nutrition/ use of supplements: [] Nutritional Intake: [] IV Site: [] Gr Catheter: [] - Assessment/Plan Antibiotics: [] Assessment/Plan: [] Active and Suspected Problems (Last Reviewed 07/16/20 @ 23:[address] Richard Gaona MD) COVID-19 (Acute) Hypoxia (Acute) Hypokalemia (Acute) Respiratory insufficiency (Acute) On dex, completed remdesivir. Got plasma 07/19. Feeling worse today with fever overnight, still high O2 reqs. No sputum. Will check bcx x2 and PCT. Vanc/zosyn ordered by primary team. CXR with increased diffuse infiltrates. Checking BNP in AM. Will follow, d/w Dr. Mackenzie
--- NOTE | 2020-07-30 16:21 | CASEMGMT ---
The following SNF's were contacted regarding their ability to take this patient with a COVID + status requiring AIRVO tx and with MMO insurance coverage: [facility]: will take COVID positive but cannot provide AIRVO. [facility]: will take COVID positive, were not familiar with AIRVO and had not taken it prior. They are currently at capacity with an expected 7 day wait for a bed to be available. [facility] [place]: will take COVID positive but would require O2 flow to be less than 8L/min per NC. They cannot provide AIRVO. [facility]: will NOT take COVID positive [facility]: will NOT take COVID positive [facility]: will NOT take COVID positive [facility]: Had not been taking COVID positive patients but may consider in the future pending bed availability. Currently with limited space. They are able to provide AIRVO and are in network with MMO. Voicemail was left with [facility] in [place] and no answer was received at the [facility]. Charlene Minor RN CM
[2020-07-30] MEDS: Acetaminophen 325 MG Tablet 650 MG PO (16:43)
[2020-07-30] MEDS: MELATONIN 3 MG TABLET PO (22:48)
[2020-07-31] VITALS (20 sets, daily range): BP systolic 98–127; BP diastolic 54–69; PULSE 55–94; RESP 12–32; TEMP 37.1–38.1; O2SAT 90–96
--- NOTE | 2020-07-31 07:02 | NURSING ---
up to bs this am. de sat to 65%. pt very sob with activity.
--- NOTE | 2020-07-31 07:04 | NURSING ---
RT at bedside. airvo settings increased to 83/55
--- NOTE | 2020-07-31 07:11 | CPS ---
called to pt's room for desaturation. Upon entering room pt was 85% on airvo at 70%. Pt was increased to 80%. Pt saturation came up to 90% 91% .Pt stated she did feel much better. Per pt's nurse pt had been up on bedside camode when desaturation took place.
[2020-07-31] MEDS: Enoxaparin 80 MG/0.8 ML Syringe SC ×2 (08:27→21:38)
[2020-07-31] MEDS: Gabapentin 100 MG Capsule 200 MG PO ×3 (08:27→17:09)
[2020-07-31] MEDS: NYSTATIN 500,000 UNIT/5 ML UDC 500000 UNIT PO ×4 (08:28→21:26)
[2020-07-31] MEDS: Pantoprazole Sodium 40 MG Tablet PO ×2 (08:28→21:37)
[2020-07-31] MEDS: HYDROcodone Bitartrate/Apap 5/325 Tablet PO ×3 (08:29→21:25)
[2020-07-31] MEDS: Levothyroxine 25 MCG TABLET PO (08:29)
[2020-07-31 08:55] LABS: Absolute Lymphocyte Count 0.77 X10^3/uL (0.83-4.51); Basophil# 0.02 X10^3/uL; Basophil% 0.2 % (0-1); Eosinophil# 0.05 X10^3/uL; Eosinophils% 0.6 % (0-5); Hematocrit 37.4 % (37-47); Hemoglobin 12.3 g/dL (12.0-15.0); Lymphocyte # 0.77 X10^3/ul (4.0); Mean Corp Hgb Conc 32.9 g/dL (32-36); Mean Corpuscular Hgb 29.1 pg (27.0-32.0); Mean Corpuscular Volume 88.6 fL (81-99); Mean Platelet Vol. 10.6 fl (6.2-12.0); Monocyte# 0.57 X10^3/uL; Monocyte% 6.6 % (0-10); NRBC Flagged by Analyzer 0 % (0-5); Neutrophil # 7.03 X10^3/uL (2.7-7.7); Platelet Count 243 K/mm3 (150-450); RBC Distribution Width CV 14.2 % (11.6-14.6); RBC Distribution Width SD 45.2 fl (35.1-43.9); Red Blood Count 4.22 M/mm3 (4.2-5.4); White Blood Count 8.6 K/mm3 (4.4-11.0)
[2020-07-31 09:09] LABS: BNP,B-Type NATRIURETIC PEPTIDE 47.9 pg/mL (0-100)
[2020-07-31 09:20] LABS: ALB/GLOB Ratio 0.5 RATIO (0.9-2.4); AST(SGOT) 22 U/L (15-37); Alanine Aminotransfer ALT/SGPT 50 U/L (13-56); Albumin, Serum 1.9 g/dL (3.2-5.0); Alkaline Phosphatase 73 U/L (45-117); Anion Gap 5 (5-15); BUN 21 mg/dL (7-18); BUN/Creat Ratio 23.2 RATIO (10-20); Calcium,Total 8.5 mg/dL (8.5-10.1); Chloride 109 mmol/L (98-107); EST Glomerular Filtration Rate 66 mL/min (>60); Est Glom Filt Rate - Afr Amer 80 mL/min (>60); Estimated Creatinine Clearance 53.81 ml/min; Globulin 3.8 g/dL (2.2-4.2); Glucose 90 mg/dL (74-106); Protein, Total 5.7 g/dL (6.4-8.2); Sodium Level 140 mmol/L (136-145)
--- NOTE | 2020-07-31 09:54 | CPS ---
0938....pt was placed on Bipap for decreased saturations and increased work of breathing. Pt nabeel Bipap well and was encouraged to wear throughout day. Pt's nurse aware of Bipap placement
--- NOTE | 2020-07-31 10:14 | NURSING ---
0915-dr. garcia in on rounds and aware of pt desating with activity and talked with pt at length to try bipap. pt agreeing and cps called to place. pt up in chair and nabeel fairly well. prn ativan to be given if pt requests. sats went from 82% to 94% rt after placement.
--- NOTE | 2020-07-31 11:02 | PCM.PN.PUL ---
Patient Problems: Active and Suspected Problems (Last Reviewed 07/16/20 @ 23:[address] Richard Gaona MD) COVID-19 (Acute) Hypoxia (Acute) Hypokalemia (Acute) Respiratory insufficiency (Acute) Subjective: Patient reports worsening dyspnea overnight with poor sleep. Patient also is having difficulty getting to the bedside commode. No bleeding complications have been reported. Patient did refuse BiPAP overnight, but states it was not as bad as I thought going to that test yesterday. - Physical Exam Vitals/I&O's: Vital Signs Temp Pulse Resp BP Pulse Ox 37.1 C 80 32 H 113/65 95 07/31/20 08:30 07/31/20 09:38 07/31/20 09:38 07/31/20 08:30 07/31/20 09:38 Oxygen Flow Rate (L/min) 55 Oxygen Delivery Method Airvo Weight: 79.2 kg Body Mass Index (BMI) 30.5 Intake and Output for Last 24 Hours 07/29/20 07/30/20 07/31/20 23:59 23:59 23:59 Intake Total 220 / 440 1425 / 1875 987 / 987 Output Total 600 / 600 Balance 220 / 440 825 / 1275 987 / 987 General: Alert, Oriented x3, Cooperative, - - Moderate distress. Very anxious HEENT: Atraumatic, PERRLA, EOMI, Normocephalic, - - Scleral injection without icterus Oral: Moist Mucosa, No Gingival or Mucosal Lesions/ Ulcerations Neck: Supple, No JVD, No Nodes, Trachea Midline Lungs: No wheeze, No rales, Diminished, Rhonchi - Left base, - - Symmetric expansion Cardiovascular: Regular rate, Regular Rhythm, Normal S1, Normal S2, No murmurs, No rub noted, No Gallop Abdomen: Bowel Sounds Present, Soft, Non Tender, Non-Distended, Obese Extremities: No clubbing, No cyanosis, No edema Skin: No rashes, No breakdown Musculoskeletal: No Tenderness to Palpation of Joints or Extremities Lymphatic: No Cervical, Supraclavicular, or Inguinal Adenopathy Neurological: Cranial nerves II-XII grossly intact, Neuro grossly intact, Motor Exam 5/5 strength throughout Psych/Mental Status: Anxious, Restless Laboratory Results 07/30/20 13:40: WBC 8.6, RBC 4.43, Hgb 13.0, Hct 39.1, MCV 88.3, MCH 29.3, MCHC 33.2, RDW Std Deviation 44.5 H, RDW Coeff of Brittanie 14.0, Plt Count 258, MPV 10.8, Immature Gran % (Auto) 1.900 H, Neut % (Auto) 83.8 H, Lymph % (Auto) 8.6 L, [place] % (Auto) 5.4, Eos % (Auto) 0.2, Baso % (Auto) 0.1, Absolute Neuts (auto) 7.2, Absolute Lymphs (auto) 0.74 L, Nucleated RBC % 0 07/30/20 13:40: Procalcitonin 0.13 H 07/31/20 08:14: WBC 8.6, RBC 4.22, Hgb 12.3, Hct 37.4, MCV 88.6, MCH 29.1, MCHC 32.9, RDW Std Deviation 45.2 H, RDW Coeff of Brittanie 14.2, Plt Count 243, MPV 10.6, Immature Gran % (Auto) 1.600 H, Neut % (Auto) 82.0 H, Lymph % (Auto) 9.0 L, [place] % (Auto) 6.6, Eos % (Auto) 0.6, Baso % (Auto) 0.2, Absolute Neuts (auto) 7.0, Absolute Lymphs (auto) 0.77 L, Nucleated RBC % 0 07/31/20 08:14: Sodium 140, Potassium 4.0, Chloride 109 H, Carbon Dioxide 26.0, Anion Gap 5, BUN 21 H, Creatinine 0.90, Estim Creat Clear Calc 53.81, Est GFR (MDRD) Af Amer 80, Est GFR (MDRD) Non-Af 66, BUN/Creatinine Ratio 23.2 H, Glucose 90, Calcium 8.5, Total Bilirubin 0.50, AST 22, ALT 50, Alkaline Phosphatase 73, Total Protein 5.7 L, Albumin 1.9 L, Globulin 3.8, Albumin/Globulin Ratio 0.5 L 07/31/20 08:14: B-Natriuretic Peptide 47.9 Current Medications Acetaminophen (Acetaminophen 325 Mg Tablet) 650 mg PO Q6H PRN PRN PRN Reason: Pain Score 1-10/Temp > 100.7 F Last Admin: 07/30/20 16:43 Dose: 650 mg Documented by: Hydrocodone Bitart/Acetaminophen (Hydrocodone Bitartrate/Apap 5/325 Tablet) 2 tablet PO Q4H PRN PRN PRN Reason: pain 4-10 Last Admin: 07/31/20 08:29 Dose: 2 tablet Documented by: Albuterol Sulfate (Albuterol Sulfate 8 Gm Inhaler (60 Puffs)) 2 puff INHALATION Q4H PRN PRN PRN Reason: SOB &/OR WHEEZING Enoxaparin Sodium (Enoxaparin 80 Mg/0.8 Ml Syringe) 80 mg SC BID [facility] Last Admin: 07/31/20 08:27 Dose: 80 mg Documented by: Gabapentin (Gabapentin 100 Mg Capsule) 200 mg PO TIDCM [facility] Last Admin: 07/31/20 08:27 Dose: 200 mg Documented by: Vancomycin IV Pharmacy to Dose (1 ea/ Sodium Chloride) 500 mls @ 250 mls/hr IV X1 PRN; Protocol PRN Reason: RX TO DOSE Sodium Chloride () 1,000 mls @ 75 mls/hr IV .[id number] [facility] Last Admin: 07/30/20 14:33 Dose: 75 mls/hr Documented by: Piperacillin Sod/Tazobactam (Sod 3.375 gm/ Sodium Chloride) 50 mls @ 12.5 mls/hr IV Q8 [facility] Last Admin: 07/31/20 06:45 Dose: 12.5 mls/hr Documented by: Vancomycin HCl 750 mg/ Sodium (Chloride) 265 mls @ 250 mls/hr IV Q12H [facility] Last Infusion: 07/31/20 03:30 Dose: Infused Documented by: Levothyroxine Sodium (Levothyroxine 25 Mcg Tablet) 25 mcg PO DAILY [facility] Last Admin: 07/31/20 08:29 Dose: 25 mcg Documented by: Loperamide HCl (Loperamide 2 Mg Capsule) 2 mg PO Q4H PRN PRN PRN Reason: DIARRHEA/LOOSE STOOLS Last Admin: 07/27/20 08:56 Dose: 2 mg Documented by: Lorazepam (Lorazepam 2 Mg/Ml Syringe) 1 mg IV Q4H PRN PRN PRN Reason: agitation/anxiety with BIPAP Melatonin (Melatonin 3 Mg Tablet) 3 mg PO QHS PRN PRN PRN Reason: INSOMNIA Last Admin: 07/30/20 22:48 Dose: 3 mg Documented by: Nystatin (Nystatin 500,000 Unit/5 Ml Udc) 500,000 unit PO 4X/DAY [facility] Last Admin: 07/31/20 08:28 Dose: 500,000 unit Documented by: Ondansetron HCl (Ondansetron 4 Mg/2 Ml Vial) 4 mg IV Q6H PRN PRN PRN Reason: NAUSEA/VOMITING Pantoprazole Sodium (Pantoprazole Sodium 40 Mg Tablet) 40 mg PO BID [facility] Last Admin: 07/31/20 08:28 Dose: 40 mg Documented by: Potassium Chloride (Potassium Chloride 20 Meq Tablet) 40 meq PO BIDCM [facility] Last Admin: 07/31/20 08:27 Dose: 40 meq Documented by: Sodium Chloride (0.9% Saline Lock 10 Ml Syringe) 10 - 40 ml IV UD PRN PRN Reason: SALINE FLUSH Last Admin: 07/27/20 17:16 Dose: 10 ml Documented by: Clinical Impression(s) from Imaging Studies Chest X-Ray 07/30/20 13:25 IMPRESSION: New bilateral pulmonary infiltrates worse in the left lower lobe with a peripheral distribution. Follow-up is recommended. Electronically Signed: Jesus Solitario, at 14:00 EST , Service support , Chest CTA 07/30/20 13:37 IMPRESSION: Nonocclusive pulmonary emboli in the upper lobe pulmonary artery. Diffuse increased interstitial markings involving both lungs worse in the lower lobes with areas of confluence. Follow-up is recommended. Electronically Signed: Jesus Solitario, at 14:28 EST , Service support , Medical Necessity - Tobacco Use Smoking Status: Former smoker Tobacco Use: Cigarettes Assessment/Plan All Active Problems (Last Reviewed 07/16/20 @ 23:[address] Richard Gaona MD) COVID-19 (Acute) Hypoxia (Acute) Hypokalemia (Acute) Respiratory insufficiency (Acute) RECOMMENDATIONS: 1. Wean supplemental oxygen to maintain saturations at or above 90%. 2. Continue therapeutic Lovenox. Completed Decadron 10-day treatment course, Remdesivir and plasma. 3. Hold on diuretic therapy today given dye load yesterday 4. Encourage incentive spirometer use and mobilize patient as tolerated. 5. Reinitiate antibiotics per infectious disease IMPRESSIONS: 1. Acute hypoxemic respiratory failure secondary to COVID-19 pneumonia The patient continues to be quite tenuous from a respiratory perspective with high supplemental oxygen requirement, but may be starting to improve. Plan to continue Decadron and therapeutic Lovenox as ordered. The patient has completed a complete course for COVID-19 per the newest recommendations but fails to improve on oxygenation despite multiple diuretic challenges. Chest x-ray showed progressive bilateral infiltrates and the patient did have a small fever overnight. Recommend having repeat evaluation by infectious disease. Patient with pulmonary emboli noted on CT scan yesterday. This may be the etiology for cessation of improvement. Patient was placed on antibiotics by infectious disease, but pro calcitonin was relatively low. This could potentially could be stopped if cultures negative at 48 hours. Stressed to the patient the role of BiPAP for respiratory rescue and to avoid respiratory muscle fatigue. 2. Acute kidney injury/advanced age Complicates care, management, recovery and prognosis. Continue current supportive measures. Inpatient E&M: 42[address] [facility] Hosp L3
[2020-07-31] MEDS: LORazepam 2 MG/ML Syringe 1 MG IV ×2 (12:37→21:25)
--- NOTE | 2020-07-31 15:03 | PCM.PN.HOSP ---
Patient Problems: Active and Suspected Problems (Last Reviewed 07/16/20 @ 23:[address] Richard Gaona MD) COVID-19 (Acute) Hypoxia (Acute) Hypokalemia (Acute) Respiratory insufficiency (Acute) Reason for Visit: Follow-up on respiratory failure/acute COVID-19 pneumonia Subjective: Patient was seen and examined. She was transitioned from Airvo to BiPAP. She tolerated it only for couple of hours. She complains of feeling cold; seems to have improved. She is very fatigued, and dropped her oxygen saturation very easily with ambulation or the least effort out of bed. Objective: Physical exam: General: Alert, Oriented x3, Cooperative, - - Mild respiratory distress, on 55L FiO2 70% oxygen/Bipap HEENT: Atraumatic, PERRLA, EOMI, Normocephalic Neck: Supple, No JVD, Negative Carotid Bruits Lungs: Clear to auscultation, Normal air movement Cardiovascular: Regular rate, No murmurs Abdomen: Bowel Sounds Present, Soft, Non Tender Extremities: No edema, Capillary Refill Less than 3 Seconds Skin: No rashes, No breakdown Musculoskeletal: No Tenderness to Palpation of Joints or Extremities Neurological: Cranial nerves II-XII grossly intact Psych/Mental Status: Normal Affect, Appropriate Vitals/I&O's: Vital Signs Temp Pulse Resp BP Pulse Ox 98.7 F 72 29 H 113/65 96 07/31/20 08:30 07/31/20 13:42 07/31/20 13:42 07/31/20 08:30 07/31/20 13:42 Oxygen Flow Rate (L/min) 55 Oxygen Delivery Method Airvo Weight: 79.2 kg Body Mass Index (BMI) 30.5 Intake and Output for Last 24 Hours 07/29/20 07/30/20 07/31/20 23:59 23:59 23:59 Intake Total 220 / 440 1425 / 1875 1037 / 1037 Output Total 600 / 600 Balance 220 / 440 825 / 1275 1037 / 1037 Laboratory Results 07/31/20 08:14: WBC 8.6, RBC 4.22, Hgb 12.3, Hct 37.4, MCV 88.6, MCH 29.1, MCHC 32.9, RDW Std Deviation 45.2 H, RDW Coeff of Brittanie 14.2, Plt Count 243, MPV 10.6, Immature Gran % (Auto) 1.600 H, Neut % (Auto) 82.0 H, Lymph % (Auto) 9.0 L, [place] % (Auto) 6.6, Eos % (Auto) 0.6, Baso % (Auto) 0.2, Absolute Neuts (auto) 7.0, Absolute Lymphs (auto) 0.77 L, Nucleated RBC % 0 07/31/20 08:14: Sodium 140, Potassium 4.0, Chloride 109 H, Carbon Dioxide 26.0, Anion Gap 5, BUN 21 H, Creatinine 0.90, Estim Creat Clear Calc 53.81, Est GFR (MDRD) Af Amer 80, Est GFR (MDRD) Non-Af 66, BUN/Creatinine Ratio 23.2 H, Glucose 90, Calcium 8.5, Total Bilirubin 0.50, AST 22, ALT 50, Alkaline Phosphatase 73, Total Protein 5.7 L, Albumin 1.9 L, Globulin 3.8, Albumin/Globulin Ratio 0.5 L 07/31/20 08:14: B-Natriuretic Peptide 47.9 Current Medications Acetaminophen (Acetaminophen 325 Mg Tablet) 650 mg PO Q6H PRN PRN PRN Reason: Pain Score 1-10/Temp > 100.7 F Last Admin: 07/30/20 16:43 Dose: 650 mg Documented by: Hydrocodone Bitart/Acetaminophen (Hydrocodone Bitartrate/Apap 5/325 Tablet) 2 tablet PO Q4H PRN PRN PRN Reason: pain 4-10 Last Admin: 07/31/20 08:29 Dose: 2 tablet Documented by: Albuterol Sulfate (Albuterol Sulfate 8 Gm Inhaler (60 Puffs)) 2 puff INHALATION Q4H PRN PRN PRN Reason: SOB &/OR WHEEZING Enoxaparin Sodium (Enoxaparin 80 Mg/0.8 Ml Syringe) 80 mg SC BID [facility] Last Admin: 07/31/20 08:27 Dose: 80 mg Documented by: Gabapentin (Gabapentin 100 Mg Capsule) 200 mg PO TIDCM [facility] Last Admin: 07/31/20 12:37 Dose: 200 mg Documented by: Vancomycin IV Pharmacy to Dose (1 ea/ Sodium Chloride) 500 mls @ 250 mls/hr IV X1 PRN; Protocol PRN Reason: RX TO DOSE Sodium Chloride () 1,000 mls @ 75 mls/hr IV .[id number] [facility] Last Admin: 07/30/20 14:33 Dose: 75 mls/hr Documented by: Piperacillin Sod/Tazobactam (Sod 3.375 gm/ Sodium Chloride) 50 mls @ 12.5 mls/hr IV Q8 [facility] Last Infusion: 07/31/20 12:35 Dose: Infused Documented by: Vancomycin HCl 750 mg/ Sodium (Chloride) 265 mls @ 250 mls/hr IV Q12H [facility] Last Infusion: 07/31/20 03:30 Dose: Infused Documented by: Levothyroxine Sodium (Levothyroxine 25 Mcg Tablet) 25 mcg PO DAILY [facility] Last Admin: 07/31/20 08:29 Dose: 25 mcg Documented by: Loperamide HCl (Loperamide 2 Mg Capsule) 2 mg PO Q4H PRN PRN PRN Reason: DIARRHEA/LOOSE STOOLS Last Admin: 07/27/20 08:56 Dose: 2 mg Documented by: Lorazepam (Lorazepam 2 Mg/Ml Syringe) 1 mg IV Q4H PRN PRN PRN Reason: agitation/anxiety with BIPAP Last Admin: 07/31/20 12:37 Dose: 1 mg Documented by: Melatonin (Melatonin 3 Mg Tablet) 3 mg PO QHS PRN PRN PRN Reason: INSOMNIA Last Admin: 07/30/20 22:48 Dose: 3 mg Documented by: Nystatin (Nystatin 500,000 Unit/5 Ml Udc) 500,000 unit PO 4X/DAY [facility] Last Admin: 07/31/20 08:28 Dose: 500,000 unit Documented by: Ondansetron HCl (Ondansetron 4 Mg/2 Ml Vial) 4 mg IV Q6H PRN PRN PRN Reason: NAUSEA/VOMITING Pantoprazole Sodium (Pantoprazole Sodium 40 Mg Tablet) 40 mg PO BID [facility] Last Admin: 07/31/20 08:28 Dose: 40 mg Documented by: Potassium [facility]loride ([facility] Last Admin: 07/31/20 08:27 Dose: 40 meq Documented by: Sodium Chloride (0.9% Saline Lock 10 Ml Syringe) 10 - 40 ml IV UD PRN PRN Reason: SALINE FLUSH Last Admin: 07/27/20 17:16 Dose: 10 ml Documented by: STROKE Vital Signs/Narrative: Vital Signs Pulse Resp Pulse Ox 07/31/20 13:42 72 29 H 96 Medical Necessity - Tobacco Use Smoking Status: Former smoker Tobacco Use: Cigarettes Assessment/Plan All Active Problems (Last Reviewed 07/16/20 @ 23:[address] Richard Gaona MD) COVID-19 (Acute) Hypoxia (Acute) Hypokalemia (Acute) Respiratory insufficiency (Acute) 1. Acute hypoxic respiratory failure secondary to acute COVID-19 infection/pneumonia, change in her respiratory status, slightly worse Patient remains at significant risk for acute decompensation. Patient is currently on Airvo, 55L, FiO2 70%/Bipap Continue with breathing treatments, encourage use of incentive spirometer, Bipap and Airvo. Wean off oxygen for SPO2 more than 94% 2. Acute COVID-19 infection, with hypoxia Continue on therapeutic Lovenox. Completed Remdesivir and decadron. 3. Acute PE secondary to COVID-19 infection, continue on Lovenox Patient will need to be transitioned to oral anticoagulant at discharge 4. Bradycardia, unclear etiology, improved Not on beta-blockers or calcium channel blockers. TSH is 0.40. Continue to monitor 5. Acute diarrhea likely secondary to COVID-19 infection, persistent Enteric panel is negative, on Imodium prn 6. Hypokalemia/hypomagnesemia secondary to diarrhea, resolved, Recheck in a.m. 7. JARRETT on CKD stage III, prerenal secondary to dehydration, resolved Will trend BMP in a.m. 8. Hypertension, relatively hypotensive, home losartan on hold Continue to monitor 9. Hypothyroidism, continue on Synthroid 10. DVT PPx- on therapeutic Lovenox [place] Inpatient E&M: 78907 Subs Hosp L3
--- NOTE | 2020-07-31 15:32 | CPS ---
Per phone conversation with pt's nurse...Pt is on the Airvo at this time and nabeel well. Pt's saturation is 95% and the pt remains on 55lpm and 80%. Nurse was asked if this therapist was needed in room to assess pt or Airvo. Nurse stated there was no need for this therapist. Nurse was informed to call this therapist if anything changes.
--- NOTE | 2020-07-31 17:35 | NURSING ---
1700-went into room and pt with aerovo outside of nares on cheek. pt blowing nose freq and didnt put back in properly. pt sats 68% on ra and lips dusky slightly. aerovo placed back in nares and took 30min to get back up to 90%. temp 100.5 c/o back pain so vicodin given and will recheck temp. more air movement noted to upper and mid lobes.
[2020-07-31] MEDS: 0.9% Normal Saline 1,000 ML 75 ML IV (21:08)
[2020-07-31] MEDS: MELATONIN 3 MG TABLET PO (21:25)
[2020-08-01] VITALS (21 sets, daily range): BP systolic 91–118; BP diastolic 53–68; PULSE 57–95; RESP 12–36; TEMP 36.5–38.1; O2SAT 86–97
[2020-08-01 03:05] LABS: Absolute Lymphocyte Count 0.84 X10^3/uL (0.83-4.51); Absolute Neutrophil Count 7.2 X10^3/uL (2.0-7.7); Basophil# 0.01 X10^3/uL; Basophil% 0.1 % (0-1); Eosinophil# 0.06 X10^3/uL; Eosinophils% 0.7 % (0-5); Hematocrit 35.1 % (37-47); Hemoglobin 11.1 g/dL (12.0-15.0); Lymphocyte # 0.84 X10^3/ul (4.0); Lymphocyte % 9.5 % (19-41); Mean Corp Hgb Conc 31.6 g/dL (32-36); Mean Corpuscular Hgb 28.6 pg (27.0-32.0); Mean Corpuscular Volume 90.5 fL (81-99); Mean Platelet Vol. 10.7 fl (6.2-12.0); Monocyte# 0.62 X10^3/uL; NRBC Flagged by Analyzer 0 % (0-5); Neutrophil # 7.17 X10^3/uL (2.7-7.7); Neutrophil % 81.3 % (47-70); Platelet Count 230 K/mm3 (150-450); RBC Distribution Width CV 14.3 % (11.6-14.6); RBC Distribution Width SD 46.7 fl (35.1-43.9); Red Blood Count 3.88 M/mm3 (4.2-5.4); White Blood Count 8.8 K/mm3 (4.4-11.0)
[2020-08-01 03:23] LABS: ALB/GLOB Ratio 0.5 RATIO (0.9-2.4); AST(SGOT) 21 U/L (15-37); Alanine Aminotransfer ALT/SGPT 53 U/L (13-56); Albumin, Serum 1.8 g/dL (3.2-5.0); Alkaline Phosphatase 80 U/L (45-117); Anion Gap 4 (5-15); BUN 20 mg/dL (7-18); BUN/Creat Ratio 19.6 RATIO (10-20); Calcium,Total 8.2 mg/dL (8.5-10.1); Chloride 107 mmol/L (98-107); Creatinine, Serum 1.02 mg/dL (0.55-1.02); EST Glomerular Filtration Rate 58 mL/min (>60); Est Glom Filt Rate - Afr Amer 70 mL/min (>60); Estimated Creatinine Clearance 47.48 ml/min; Globulin 3.9 g/dL (2.2-4.2); Glucose 112 mg/dL (74-106); Protein, Total 5.7 g/dL (6.4-8.2); Sodium Level 138 mmol/L (136-145)
[2020-08-01] MEDS: 0.9% Normal Saline 1,000 ML 75 ML IV (03:48)
[2020-08-01 03:56] LABS: Vancomycin, Trough Level 8.8 ug/mL (5.0-15.0)
--- NOTE | 2020-08-01 04:16 | PCM.RX.CS ---
Consult Pharmacy has been consulted to manage selected antiobiotic: Vancomycin Type of Consult: Follow-up Suspected Infection: Pneumonia Prior Doses of Antibiotics Received/Current Regimen: Medications Vancomycin HCl (Vancomycin) 1,000 mg in 200 mls @ 200 mls/hr IV Q12H [facility] Discontinued Medications Vancomycin HCl 750 mg/ Sodium (Chloride) 265 mls @ 250 mls/hr IV Q12H [facility] Last Admin: 08/01/20 03:48 Dose: Infused Labs: Sodium 138 mmol/L (136-145) 08/01/20 02:19 Potassium 4.0 mmol/L (3.5-5.1) 08/01/20 02:19 Chloride 107 mmol/L (98-107) 08/01/20 02:19 Carbon Dioxide 27.0 mmol/L (21.0-32.0) 08/01/20 02:19 Anion Gap 4 (5-15) L 08/01/20 02:19 BUN 20 mg/dL (7-18) H 08/01/20 02:19 Creatinine 1.02 mg/dL (0.55-1.02) 08/01/20 02:19 Est GFR (MDRD) Af Amer 70 mL/min (>60) 08/01/20 02:19 Est GFR (MDRD) Non-Af 58 mL/min (>60) L 08/01/20 02:19 BUN/Creatinine Ratio 19.6 RATIO (10-20) 08/01/20 02:19 Glucose 112 mg/dL (74-106) H 08/01/20 02:19 Vancomycin Trough 8.8 ug/mL (5.0-15.0) 08/01/20 02:19 Microbiology: Microbiology 07/16/20 18:25 Blood Culture (Wb) - Anticubital Left Blood Culture - Final No growth in 5 days. 07/16/20 18:15 Blood Culture (Wb) - Left Forearm Blood Culture - Final No growth in 5 days. 07/19/20 Unknown Stool Enteric Bacteriology - Final Weight used for dosin.2 kg Estimated Creatinine Clearance: 47.5 Goal Trough: 10-15 mcg/mL Pharmacy Plan for Drug Dosing: Vancomycin trough level was low at 8.8. Target range is 10-15. Despite decrease in CrCl, will increase to 1000mg q12h to attempt to get level into range. Will re-draw a trough prior to 4th dose of new regimen. Pharmacy Service will continue to monitor and adjust dosing as required. Follow-Up Labs: Trough Vancomycin Labs to be done on [date and time ordered]: 08/03/20 @0200
[2020-08-01] MEDS: HYDROcodone Bitartrate/Apap 5/325 Tablet PO ×3 (07:02→16:30)
--- NOTE | 2020-08-01 07:23 | CPS ---
FIO2 was decreased back down to 70%. Saturation 96% on the 70%. Pt was offered to be placed back on the Bipap but refused. Pt stated she l like where she was at now and doesn't want to change that.
--- NOTE | 2020-08-01 07:38 | PN_ITS ---
Patient Problems: Active and Suspected Problems (Last Reviewed 07/16/20 @ 23:[address] Richard Gaona MD) COVID-19 (Acute) Hypoxia (Acute) Hypokalemia (Acute) Respiratory insufficiency (Acute) Reason for Visit: Follow-up on respiratory failure/acute COVID-19 pneumonia Subjective: Patient was seen and examined. She remains unchanged with regards to oxygen. Running low grade fever. Patient was confused earlier in the morning. Started on Haldol prn Objective: Physical exam: General: Alert, Oriented x3, Cooperative, - - Mild respiratory distress, on 55L FiO2 70% oxygen/Bipap HEENT: Atraumatic, PERRLA, EOMI, Normocephalic Neck: Supple, No JVD, Negative Carotid Bruits Lungs: Clear to auscultation, Normal air movement Cardiovascular: Regular rate, No murmurs Abdomen: Bowel Sounds Present, Soft, Non Tender Extremities: No edema, Capillary Refill Less than 3 Seconds Skin: No rashes, No breakdown Musculoskeletal: No Tenderness to Palpation of Joints or Extremities Neurological: Cranial nerves II-XII grossly intact Psych/Mental Status: Normal Affect, Appropriate Vitals/I&O's: Vital Signs Temp Pulse Resp BP Pulse Ox 100.5 F H 84 20 H 118/68 97 08/01/20 05:00 08/01/20 07:22 08/01/20 07:22 08/01/20 05:00 08/01/20 07:22 Oxygen Flow Rate (L/min) 55 Oxygen Delivery Method Bi-pap Weight: 79.8 kg Body Mass Index (BMI) 30.5 Intake and Output for Last 24 Hours 07/30/20 07/31/20 08/01/20 23:59 23:59 23:59 Intake Total 1425 / 1875 3132 / 3132 1048.75 / 1048.75 Output Total 600 / 600 600 / 600 400 / 400 Balance 825 / 1275 2532 / 2532 648.75 / 648.75 Laboratory Results 07/31/20 08:14: WBC 8.6, RBC 4.22, Hgb 12.3, Hct 37.4, MCV 88.6, MCH 29.1, MCHC 32.9, RDW Std Deviation 45.2 H, RDW Coeff of Brittanie 14.2, Plt Count 243, MPV 10.6, Immature Gran % (Auto) 1.600 H, Neut % (Auto) 82.0 H, Lymph % (Auto) 9.0 L, [place] % (Auto) 6.6, Eos % (Auto) 0.6, Baso % (Auto) 0.2, Absolute Neuts (auto) 7.0, Absolute Lymphs (auto) 0.77 L, Nucleated RBC % 0 07/31/20 08:14: Sodium 140, Potassium 4.0, Chloride 109 H, Carbon Dioxide 26.0, Anion Gap 5, BUN 21 H, Creatinine 0.90, Estim Creat Clear Calc 53.81, Est GFR (MDRD) Af Amer 80, Est GFR (MDRD) Non-Af 66, BUN/Creatinine Ratio 23.2 H, Glucose 90, Calcium 8.5, Total Bilirubin 0.50, AST 22, ALT 50, Alkaline Phosphatase 73, Total Protein 5.7 L, Albumin 1.9 L, Globulin 3.8, Albumin/Globulin Ratio 0.5 L 07/31/20 08:14: B-Natriuretic Peptide 47.9 08/01/20 02:19: WBC 8.8, RBC 3.88 L, Hgb 11.1 L, Hct 35.1 L, MCV 90.5, MCH 28.6, MCHC 31.6 L, RDW Std Deviation 46.7 H, RDW Coeff of Brittanie 14.3, Plt Count 230, MPV 10.7, Immature Gran % (Auto) 1.400 H, Neut % (Auto) 81.3 H, Lymph % (Auto) 9.5 L , [place] % (Auto) 7.0, Eos % (Auto) 0.7, Baso % (Auto) 0.1, Absolute Neuts (auto) 7.2, Absolute Lymphs (auto) 0.84, Nucleated RBC % 0 08/01/20 02:19: Sodium 138, Potassium 4.0, Chloride 107, Carbon Dioxide 27.0, Anion Gap 4 L, BUN 20 H, Creatinine 1.02, Estim Creat Clear Calc 47.48, Est GFR (MDRD) Af Amer 70, Est GFR (MDRD) Non-Af 58 L, BUN/Creatinine Ratio 19.6, Glucose 112 H, Calcium 8.2 L, Total Bilirubin 0.40, AST 21, ALT 53, Alkaline Phosphatase 80, Total Protein 5.7 L, Albumin 1.8 L, Globulin 3.9, Albumin/Globulin Ratio 0.5 L 08/01/20 02:19: Vancomycin Trough 8.8 Current Medications Acetaminophen (Acetaminophen 325 Mg Tablet) 650 mg PO Q6H PRN PRN PRN Reason: Pain Score 1-10/Temp > 100.7 F Last Admin: 07/30/20 16:43 Dose: 650 mg Documented by: Hydrocodone Bitart/Acetaminophen (Hydrocodone Bitartrate/Apap 5/325 Tablet) 2 tablet PO Q4H PRN PRN PRN Reason: pain 4-10 Last Admin: 08/01/20 07:02 Dose: 2 tablet Documented by: Albuterol Sulfate (Albuterol Sulfate 8 Gm Inhaler (60 Puffs)) 2 puff INHALATION Q4H PRN PRN PRN Reason: SOB &/OR WHEEZING Enoxaparin Sodium (Enoxaparin 80 Mg/0.8 Ml Syringe) 80 mg SC BID [facility] Last Admin: 07/31/20 21:38 Dose: 80 mg Documented by: Gabapentin (Gabapentin 100 Mg Capsule) 200 mg PO TIDCM [facility] Last Admin: 07/31/20 17:09 Dose: 200 mg Documented by: Vancomycin IV Pharmacy to Dose (1 ea/ Sodium Chloride) 500 mls @ 250 mls/hr IV X1 PRN; Protocol PRN Reason: RX TO DOSE Sodium Chloride () 1,000 mls @ 75 mls/hr IV .[id number] [facility] Last Infusion: 08/01/20 05:27 Dose: 0 mls/hr Documented by: Piperacillin Sod/Tazobactam (Sod 3.375 gm/ Sodium Chloride) 50 mls @ 12.5 mls/hr IV Q8 [facility] Last Admin: 08/01/20 05:27 Dose: 12.5 mls/hr Documented by: Vancomycin HCl (Vancomycin) 1,000 mg in 200 mls @ 200 mls/hr IV Q12H [facility] Levothyroxine Sodium (Levothyroxine 25 Mcg Tablet) 25 mcg PO DAILY [facility] Last Admin: 07/31/20 08:29 Dose: 25 mcg Documented by: Loperamide HCl (Loperamide 2 Mg Capsule) 2 mg PO Q4H PRN PRN PRN Reason: DIARRHEA/LOOSE STOOLS Last Admin: 07/27/20 08:56 Dose: 2 mg Documented by: Lorazepam (Lorazepam 2 Mg/Ml Syringe) 1 mg IV Q4H PRN PRN PRN Reason: agitation/anxiety with BIPAP Last Admin: 07/31/20 21:25 Dose: 1 mg Documented by: Melatonin (Melatonin 3 Mg Tablet) 3 mg PO QHS PRN PRN PRN Reason: INSOMNIA Last Admin: 07/31/20 21:25 Dose: 3 mg Documented by: Nystatin (Nystatin 500,000 Unit/5 Ml Udc) 500,000 unit PO 4X/DAY [facility] Last Admin: 07/31/20 21:26 Dose: 500,000 unit Documented by: Ondansetron HCl (Ondansetron 4 Mg/2 Ml Vial) 4 mg IV Q6H PRN PRN PRN Reason: NAUSEA/VOMITING Pantoprazole Sodium (Pantoprazole Sodium 40 Mg Tablet) 40 mg PO BID [facility] Last Admin: 07/31/20 21:37 Dose: 40 mg Documented by: Potassium Chloride (Potassium Chloride 20 Meq Tablet) 40 meq PO BIDCM [facility] Last Admin: 07/31/20 17:09 Dose: 40 meq Documented by: Sodium Chloride (0.9% Saline Lock 10 Ml Syringe) 10 - 40 ml IV UD PRN PRN Reason: SALINE FLUSH Last Admin: 07/27/20 17:16 Dose: 10 ml Documented by: STROKE Vital Signs/Narrative: Vital Signs Temp Pulse Resp BP Pulse Ox 08/01/20 07:22 84 20 H 97 08/01/20 07:00 87 08/01/20 05:00 100.5 F H 86 28 H 118/68 94 Medical Necessity - Tobacco Use Smoking Status: Former smoker Tobacco Use: Cigarettes Assessment/Plan All Active Problems (Last Reviewed 07/16/20 @ 23:[address] Richard Gaona MD) COVID-19 (Acute) Hypoxia (Acute) Hypokalemia (Acute) Respiratory insufficiency (Acute) 1. Acute hypoxic respiratory failure secondary to acute COVID-19 infection/pneumonia, change in her respiratory status, slightly worse Patient remains at significant risk for acute decompensation. Patient is currently on Airvo, 55L, FiO2 70%/Bipap Continue with breathing treatments, encourage use of incentive spirometer, Bipap and Airvo. Wean off oxygen for SPO2 more than 94% 2. Acute COVID-19 infection, with hypoxia Continue on therapeutic Lovenox. Completed Remdesivir and decadron. 3. Acute PE secondary to COVID-19 infection, continue on Lovenox Patient will need to be transitioned to oral anticoagulant at discharge 4. Bradycardia, unclear etiology, improved Not on beta-blockers or calcium channel blockers. TSH is 0.40. Continue to monitor 5. Acute diarrhea likely secondary to COVID-19 infection, persistent Enteric panel is negative, on Imodium prn 6. Hypokalemia/hypomagnesemia secondary to diarrhea, resolved, Recheck in a.m. 7. JARRETT on CKD stage III, prerenal secondary to dehydration, resolved Will trend BMP in a.m. 8. Hypertension, relatively hypotensive, home losartan on hold Continue to monitor 9. Hypothyroidism, continue on Synthroid 10. DVT PPx- on therapeutic Lovenox SC Peer to peer for discharge to LTAC was done on Sunday. Repeat Peer-peer will need to be repeated. Inpatient E&M: 04505 Subs Hosp L3
--- NOTE | 2020-08-01 08:24 | CPS ---
0722...nurse made aware of decrease in FIO2 on Airvo
[2020-08-01] MEDS: Pantoprazole Sodium 40 MG Tablet PO ×2 (09:02→23:36)
[2020-08-01] MEDS: Levothyroxine 25 MCG TABLET PO (09:02)
[2020-08-01] MEDS: Gabapentin 100 MG Capsule 200 MG PO ×2 (09:02→17:44)
[2020-08-01] MEDS: NYSTATIN 500,000 UNIT/5 ML UDC 500000 UNIT PO ×3 (09:02→23:36)
[2020-08-01] MEDS: Enoxaparin 80 MG/0.8 ML Syringe SC ×2 (09:02→23:36)
--- NOTE | 2020-08-01 10:44 | PCM.PN.PUL ---
Patient Problems: Active and Suspected Problems (Last Reviewed 07/16/20 @ 23:[address] Richard Gaona MD) COVID-19 (Acute) Hypoxia (Acute) Hypokalemia (Acute) Respiratory insufficiency (Acute) Subjective: Patient did okay overnight. Patient appears much more anxious and confused today compared to previous. Patient did spike a fever overnight. And oxygen status is grossly unchanged compared to previous. Patient has not tolerated BiPAP normally for rescue for very long. No bleeding complications have been reported - Physical Exam Vitals/I&O's: Vital Signs Temp Pulse Resp BP Pulse Ox 36.6 C 73 20 H 91/53 L 92 08/01/20 09:00 08/01/20 09:00 08/01/20 09:00 08/01/20 09:00 08/01/20 09:00 Oxygen Flow Rate (L/min) 55 Oxygen Delivery Method Airvo Weight: 79.8 kg Body Mass Index (BMI) 30.5 Intake and Output for Last 24 Hours 07/30/20 07/31/20 08/01/20 23:59 23:59 23:59 Intake Total 1425 / 1875 3132 / 3132 1098.75 / 1098.75 Output Total 600 / 600 600 / 600 400 / 400 Balance 825 / 1275 2532 / 2532 698.75 / 698.75 General: Alert, Confused, Disoriented, - - Anxious. HEENT: Atraumatic, PERRLA, EOMI, Normocephalic, - - Scleral injection noted Oral: Moist Mucosa, No Gingival or Mucosal Lesions/ Ulcerations Neck: Supple, No JVD, No Nodes, Trachea Midline Lungs: No rhonchi, No wheeze, No rales, Diminished Cardiovascular: Regular rate, Regular Rhythm, Normal S1, Normal S2, No murmurs, No rub noted, No Gallop Abdomen: Bowel Sounds Present, Soft, Non Tender, Non-Distended Extremities: No clubbing, No cyanosis, No edema Skin: No rashes, No breakdown Musculoskeletal: No Tenderness to Palpation of Joints or Extremities Lymphatic: No Cervical, Supraclavicular, or Inguinal Adenopathy Neurological: Cranial nerves II-XII grossly intact, Neuro grossly intact, Motor Exam 5/5 strength throughout Psych/Mental Status: Anxious, Impulsive, Restless Laboratory Results 08/01/20 02:19: WBC 8.8, RBC 3.88 L, Hgb 11.1 L, Hct 35.1 L, MCV 90.5, MCH 28.6, MCHC 31.6 L, RDW Std Deviation 46.7 H, RDW Coeff of Brittanie 14.3, Plt Count 230, MPV 10.7, Immature Gran % (Auto) 1.400 H, Neut % (Auto) 81.3 H, Lymph % (Auto) 9.5 L, [place] % (Auto) 7.0, Eos % (Auto) 0.7, Baso % (Auto) 0.1, Absolute Neuts (auto) 7.2, Absolute Lymphs (auto) 0.84, Nucleated RBC % 0 08/01/20 02:19: Sodium 138, Potassium 4.0, Chloride 107, Carbon Dioxide 27.0, Anion Gap 4 L, BUN 20 H, Creatinine 1.02, Estim Creat Clear Calc 47.48, Est GFR (MDRD) Af Amer 70, Est GFR (MDRD) Non-Af 58 L, BUN/Creatinine Ratio 19.6, Glucose 112 H, Calcium 8.2 L, Total Bilirubin 0.40, AST 21, ALT 53, Alkaline Phosphatase 80, Total Protein 5.7 L, Albumin 1.8 L, Globulin 3.9, Albumin/Globulin Ratio 0.5 L 08/01/20 02:19: Vancomycin Trough 8.8 Current Medications Acetaminophen (Acetaminophen 325 Mg Tablet) 650 mg PO Q6H PRN PRN PRN Reason: Pain Score 1-10/Temp > 100.7 F Last Admin: 07/30/20 16:43 Dose: 650 mg Documented by: Hydrocodone Bitart/Acetaminophen (Hydrocodone Bitartrate/Apap 5/325 Tablet) 2 tablet PO Q4H PRN PRN PRN Reason: pain 4-10 Last Admin: 08/01/20 07:02 Dose: 2 tablet Documented by: Albuterol Sulfate (Albuterol Sulfate 8 Gm Inhaler (60 Puffs)) 2 puff INHALATION Q4H PRN PRN PRN Reason: SOB &/OR WHEEZING Enoxaparin Sodium (Enoxaparin 80 Mg/0.8 Ml Syringe) 80 mg SC BID [facility] Last Admin: 08/01/20 09:02 Dose: 80 mg Documented by: Gabapentin (Gabapentin 100 Mg Capsule) 200 mg PO TIDCM [facility] Last Admin: 08/01/20 09:02 Dose: 200 mg Documented by: Haloperidol Lactate (Haloperidol Lactate 5 Mg/Ml Vial) 3 mg IV Q6H PRN PRN PRN Reason: AGITATION Sodium Chloride () 1,000 mls @ 75 mls/hr IV .[id number] [facility] Last Infusion: 08/01/20 09:27 Dose: 75 mls/hr Documented by: Piperacillin Sod/Tazobactam (Sod 3.375 gm/ Sodium Chloride) 50 mls @ 12.5 mls/hr IV Q8 [facility] Last Infusion: 08/01/20 10:22 Dose: Infused Documented by: Levothyroxine Sodium (Levothyroxine 25 Mcg Tablet) 25 mcg PO DAILY [facility] Last Admin: 08/01/20 09:02 Dose: 25 mcg Documented by: Loperamide HCl (Loperamide 2 Mg Capsule) 2 mg PO Q4H PRN PRN PRN Reason: DIARRHEA/LOOSE STOOLS Last Admin: 07/27/20 08:56 Dose: 2 mg Documented by: Lorazepam (Lorazepam 2 Mg/Ml Syringe) 1 mg IV Q4H PRN PRN PRN Reason: agitation/anxiety with BIPAP Last Admin: 07/31/20 21:25 Dose: 1 mg Documented by: Melatonin (Melatonin 3 Mg Tablet) 3 mg PO QHS PRN PRN PRN Reason: INSOMNIA Last Admin: 07/31/20 21:25 Dose: 3 mg Documented by: Nystatin (Nystatin 500,000 Unit/5 Ml Udc) 500,000 unit PO 4X/DAY [facility] Last Admin: 08/01/20 09:02 Dose: 500,000 unit Documented by: Ondansetron HCl (Ondansetron 4 Mg/2 Ml Vial) 4 mg IV Q6H PRN PRN PRN Reason: NAUSEA/VOMITING Pantoprazole Sodium (Pantoprazole Sodium 40 Mg Tablet) 40 mg PO BID [facility] Last Admin: 08/01/20 09:02 Dose: 40 mg Documented by: Potassium Chloride (Potassium Chloride 20 Meq Tablet) 40 meq PO BIDCM [facility] Last Admin: 08/01/20 09:01 Dose: 40 meq Documented by: Sodium Chloride (0.9% Saline Lock 10 Ml Syringe) 10 - 40 ml IV UD PRN PRN Reason: SALINE FLUSH Last Admin: 07/27/20 17:16 Dose: 10 ml Documented by: Medical Necessity - Tobacco Use Smoking Status: Former smoker Tobacco Use: Cigarettes Assessment/Plan All Active Problems (Last Reviewed 07/16/20 @ 23:[address] Richard Gaona MD) COVID-19 (Acute) Hypoxia (Acute) Hypokalemia (Acute) Respiratory insufficiency (Acute) RECOMMENDATIONS: 1. Wean supplemental oxygen to maintain saturations at or above 90%. 2. Continue therapeutic Lovenox. Completed Decadron 10-day treatment course, Remdesivir and plasma. 3. Dose with diuretics 4. Encourage incentive spirometer use and mobilize patient as tolerated. 5. Reinitiate antibiotics per infectious disease 6. Add Seroquel and Haldol to help with BiPAP synchrony and agitation IMPRESSIONS: 1. Acute hypoxemic respiratory failure secondary to COVID-19 pneumonia The patient continues to be quite tenuous from a respiratory perspective with high supplemental oxygen requirement, but may be starting to improve. Plan to continue Decadron and therapeutic Lovenox as ordered. The patient has completed a complete course for COVID-19 per the newest recommendations but fails to improve on oxygenation despite multiple diuretic challenges. Chest x-ray showed progressive bilateral infiltrates and the patient did have a small fever overnight. Recommend having repeat evaluation by infectious disease. Patient with pulmonary emboli noted on recent CT scan. This may be the etiology for cessation of improvement. Patient was placed on antibiotics by infectious disease, but pro calcitonin was relatively low. This could potentially could be stopped if cultures negative at 48 hours. Stressed to the patient the role of BiPAP for respiratory rescue and to avoid respiratory muscle fatigue. Will add Seroquel and Haldol to help with BiPAP synchrony and improved respiratory mechanics. 2. Acute kidney injury/advanced age Complicates care, management, recovery and prognosis. Continue current supportive measures. Inpatient E&M: [id number] [facility] Hosp L3
[2020-08-01] MEDS: Furosemide 20 MG/2 ML VIAL IV (11:13)
[2020-08-01] MEDS: Furosemide 40 MG/4 ML Vial 20 MG IV (14:48)
--- NOTE | 2020-08-01 16:43 | NURSING ---
Dr Mackenzie and this RN into room to see pt. Pt observed shaking with chills and stating I'm freezing and hurt everywhere. Vs obtained. during this time, pt desat to 83-85% on airvo 70%/55L. Advised pt to take slow deep breaths. Pt cont to desat to 78%. Placed on bipap. O2 sats up to 93% on bipap within roughly 10 minutes. RT to room to check pt and bipap. Will encourage pt to stay on bipap as long as possible to help breathing and oxygenation.
[2020-08-01] MEDS: 0.9% Normal Saline 1,000 ML 50 ML IV (16:51)
--- NOTE | 2020-08-01 16:55 | CPS ---
called to pt's room for desaturation. Upon entering room nurse stated pt had a desaturation on Airvo to 78%. Nurse had placed pt on Bipap prior to this therapists arrival. Pt's saturation on the Bipap is 91 -93%.
[2020-08-01] MEDS: QUEtiapine 25 MG Tablet 50 MG PO (23:36)
[2020-08-02] VITALS (43 sets, daily range): BP systolic 82–131; BP diastolic 48–86; PULSE 74–139; RESP 12–34; TEMP 36.1–37.4; O2SAT 91–98
[2020-08-02 00:31] LABS: Allen Test Positive; Base Excess 1 mmol/L (-2 to +2); Bicarbonate 24.3 mmol/L (22-26); Blood Gas Specimen Type ART; FI02 90; O2 Delivery Device BiPAP; PEEP 10; PO2 60 mmHG (75-100); PS 16; RR 12; SITE L Radial; SO2 93 % (95-99); Total Carbon Dioxide 25 mmol/L; pCO2 31.9 mmHg (35-45); pH 7.49 (7.35-7.45)
[2020-08-02] MEDS: Haloperidol Lactate 5 MG/ML Vial 3 MG IV (01:10)
--- NOTE | 2020-08-02 01:29 | NURSING ---
This RN entered the room to assess this pt around 2330. Obtained VS, BP 105/67, HR 86, RR 33, SpO2 84% on airvo, and temp 99.3 orally. Pt very lethargic and drowsy, awakes to voice and is A&Ox3. Assessment otherwise negative besides tachypnea and hypoxia. Pt placed on bipap, FiO2 70%. Pt still 85% at 70% bipap even after several minutes of recovery. Respiratory called and advised to increase FiO2 to 90%. Pt still satting 91-92%, placed on stepdown monitor for closer monitoring. Dr. Gaona called and notified of concern for pt's condition. advised to transfer to ICU. Report called to Alanna Epperson RN. Pt transported up to ICU on stepdown monitor w/ sales enablement analyst and respiratory therapist. ROSANA Anthony.
--- NOTE | 2020-08-02 02:07 | NURSING ---
Administered PRN order for 3mg of IV Haldol d/t agitation and rescue bipap synchrony at 0110. Pt. resting comfortably upon reassessment.
[2020-08-02 04:06] LABS: Absolute Lymphocyte Count 0.81 X10^3/uL (0.83-4.51); Absolute Neutrophil Count 8.9 X10^3/uL (2.0-7.7); Basophil# 0.01 X10^3/uL; Basophil% 0.1 % (0-1); Eosinophil# 0.05 X10^3/uL; Eosinophils% 0.5 % (0-5); Hematocrit 35.4 % (37-47); Hemoglobin 11.8 g/dL (12.0-15.0); Lymphocyte # 0.81 X10^3/ul (4.0); Lymphocyte % 7.6 % (19-41); Mean Corp Hgb Conc 33.3 g/dL (32-36); Mean Corpuscular Hgb 29.4 pg (27.0-32.0); Mean Corpuscular Volume 88.1 fL (81-99); Mean Platelet Vol. 10.3 fl (6.2-12.0); Monocyte# 0.82 X10^3/uL; Monocyte% 7.7 % (0-10); NRBC Flagged by Analyzer 0 % (0-5); Neutrophil # 8.92 X10^3/uL (2.7-7.7); Neutrophil % 83.2 % (47-70); Platelet Count 245 K/mm3 (150-450); RBC Distribution Width CV 14.3 % (11.6-14.6); RBC Distribution Width SD 45.3 fl (35.1-43.9); Red Blood Count 4.02 M/mm3 (4.2-5.4); White Blood Count 10.7 K/mm3 (4.4-11.0)
[2020-08-02 04:29] LABS: ALB/GLOB Ratio 0.4 RATIO (0.9-2.4); AST(SGOT) 29 U/L (15-37); Alanine Aminotransfer ALT/SGPT 51 U/L (13-56); Albumin, Serum 1.9 g/dL (3.2-5.0); Alkaline Phosphatase 102 U/L (45-117); Anion Gap 7 (5-15); BUN 17 mg/dL (7-18); BUN/Creat Ratio 17.4 RATIO (10-20); Calcium,Total 8.3 mg/dL (8.5-10.1); Chloride 107 mmol/L (98-107); Creatinine, Serum 0.98 mg/dL (0.55-1.02); EST Glomerular Filtration Rate 61 mL/min (>60); Est Glom Filt Rate - Afr Amer 73 mL/min (>60); Estimated Creatinine Clearance 49.42 ml/min; Globulin 4.4 g/dL (2.2-4.2); Glucose 113 mg/dL (74-106); Potassium 4.1 mmol/L (3.5-5.1); Protein, Total 6.3 g/dL (6.4-8.2); Sodium Level 140 mmol/L (136-145)
--- NOTE | 2020-08-02 05:56 | PCM.PN.INT ---
Subjective: The patient was seen and examined at the bedside this morning. Events from the last 24 hours have been reviewed. The patient is currently afebrile, hemodynamically stable and maintaining appropriate oxygen saturations on BiPAP with an FiO2 requirement of 90%. The patient was transferred from the progressive care unit last evening with worsening in her overall respiratory failure. She did receive a one-time dose of IV Haldol early this morning which appeared to help with her agitation. She is quite anxious this morning and does report the continued presence of dyspnea. The patient is currently documented to be overall net +13.7 L for the hospital admission. Objective: The patient's most recent lab work, culture data and imaging studies have all been personally reviewed. Coronavirus PCR was positive on July 14. CTA chest completed on July 30 did reveal small left upper lobe PE. General: Alert, Cooperative HEENT: Atraumatic, PERRLA, Normocephalic Oral: No Gingival or Mucosal Lesions/ Ulcerations Neck: Supple, No Nodes, Trachea Midline Lungs: Diminished Cardiovascular: Regular rate, Regular Rhythm Abdomen: Bowel Sounds Present, Soft, Non Tender Extremities: No clubbing, No cyanosis, No edema Skin: No breakdown Musculoskeletal: No Tenderness to Palpation of Joints or Extremities Lymphatic: No Cervical, Supraclavicular, or Inguinal Adenopathy Neurological: Neuro grossly intact Psych/Mental Status: Anxious Vital Signs Temp Pulse Resp BP Pulse Ox 98.5 F 110 H 27 H 124/75 H 94 08/02/20 04:00 08/02/20 05:00 08/02/20 05:00 08/02/20 05:00 08/02/20 05:00 Oxygen Flow Rate (L/min) 55 Oxygen Delivery Method Bi-pap Weight: 171 lb 4.787 oz Body Mass Index (BMI) 30.5 Intake and Output for Last 24 Hours 07/31/20 08/01/20 08/02/20 23:59 23:59 23:59 Intake Total 3132 / 3132 2000.00 / 2120.00 170 / 170 Output Total 600 / 600 1400 / 1400 0 / 0 Balance 2532 / 2532 600.00 / 720.00 170 / 170 Labs (Last 48 Hours) 07/31/20 07/31/20 07/31/20 08:14 08:14 08:14 WBC 8.6 RBC 4.22 Hgb 12.3 Hct 37.4 MCV 88.6 MCH 29.1 MCHC 32.9 RDW Std Deviation 45.2 H RDW Coeff of Brittanie 14.2 Plt Count 243 MPV 10.6 Immature Gran % (Auto) 1.600 H Neut % (Auto) 82.0 H Lymph % (Auto) 9.0 L Treasure % (Auto) 6.6 Eos % (Auto) 0.6 Baso % (Auto) 0.2 Absolute Neuts (auto) 7.0 Absolute Lymphs (auto) 0.77 L Nucleated RBC % 0 Specimen Type Sample Site pH Bicarbonate Actual Total CO2 Base Excess O2 Saturation O2 % ABG pCO2 ABG pO2 Kwan Test Respiration Rate O2 Delivery Device POC PEEP POC Pressure Suppt Sodium 140 Potassium 4.0 Chloride 109 H Carbon Dioxide 26.0 Anion Gap 5 BUN 21 H Creatinine 0.90 Estim Creat Clear Calc 53.81 Est GFR (MDRD) Af Amer 80 Est GFR (MDRD) Non-Af 66 BUN/Creatinine Ratio 23.2 H Glucose 90 Calcium 8.5 Total Bilirubin 0.50 AST 22 ALT 50 Alkaline Phosphatase 73 B-Natriuretic Peptide 47.9 Total Protein 5.7 L Albumin 1.9 L Globulin 3.8 Albumin/Globulin Ratio 0.5 L Vancomycin Trough 08/01/20 08/01/20 08/01/20 02:19 02:19 02:19 WBC 8.8 RBC 3.88 L Hgb 11.1 L Hct 35.1 L MCV 90.5 MCH 28.6 MCHC 31.6 L RDW Std Deviation 46.7 H RDW Coeff of Brittanie 14.3 Plt Count 230 MPV 10.7 Immature Gran % (Auto) 1.400 H Neut % (Auto) 81.3 H Lymph % (Auto) 9.5 L [place] % (Auto) 7.0 Eos % (Auto) 0.7 Baso % (Auto) 0.1 Absolute Neuts (auto) 7.2 Absolute Lymphs (auto) 0.84 Nucleated RBC % 0 Specimen Type Sample Site pH Bicarbonate Actual Total CO2 Base Excess O2 Saturation O2 % ABG pCO2 ABG pO2 Kwan Test Respiration Rate O2 Delivery Device POC PEEP POC Pressure Suppt Sodium 138 Potassium 4.0 Chloride 107 Carbon Dioxide 27.0 Anion Gap 4 L BUN 20 H Creatinine 1.02 Estim Creat Clear Calc 47.48 Est GFR (MDRD) Af Amer 70 Est GFR (MDRD) Non-Af 58 L BUN/Creatinine Ratio 19.6 Glucose 112 H Calcium 8.2 L Total Bilirubin 0.40 AST 21 ALT 53 Alkaline Phosphatase 80 B-Natriuretic Peptide Total Protein 5.7 L Albumin 1.8 L Globulin 3.9 Albumin/Globulin Ratio 0.5 L Vancomycin Trough 8.8 08/02/20 08/02/20 08/02/20 00:23 04:00 04:00 WBC 10.7 RBC 4.02 L Hgb 11.8 L Hct 35.4 L MCV 88.1 MCH 29.4 MCHC 33.3 D RDW Std Deviation 45.3 H RDW Coeff of Brittanie 14.3 Plt Count 245 MPV 10.3 Immature Gran % (Auto) 0.900 Neut % (Auto) 83.2 H Lymph % (Auto) 7.6 L Treasure % (Auto) 7.7 Eos % (Auto) 0.5 Baso % (Auto) 0.1 Absolute Neuts (auto) 8.9 H Absolute Lymphs (auto) 0.81 L Nucleated RBC % 0 Specimen Type ART Sample Site L Radial pH 7.49 H Bicarbonate Actual 24.3 Total CO2 25 Base Excess 1 O2 Saturation 93 L O2 % 90 ABG pCO2 31.9 L ABG pO2 60 L Kwan Test Positive Respiration Rate 12 O2 Delivery Device BiPAP POC PEEP 10 POC Pressure Suppt 16 Sodium 140 Potassium 4.1 Chloride 107 Carbon Dioxide 26.0 Anion Gap 7 BUN 17 Creatinine 0.98 Estim Creat Clear Calc 49.42 Est GFR (MDRD) Af Amer 73 Est GFR (MDRD) Non-Af 61 BUN/Creatinine Ratio 17.4 Glucose 113 H Calcium 8.3 L Total Bilirubin 0.80 AST 29 ALT 51 Alkaline Phosphatase 102 B-Natriuretic Peptide Total Protein 6.3 L Albumin 1.9 L Globulin 4.4 H Albumin/Globulin Ratio 0.4 L Vancomycin Trough Clinical Impression(s) from Imaging Studies Chest X-Ray 07/16/20 15:58 IMPRESSION: Normal x-ray examination of the chest. Electronically Signed: Eddie Rivera DO at 16:09 EDT Tel [phone], Service support , Chest X-Ray 07/30/20 13:25 IMPRESSION: New bilateral pulmonary infiltrates worse in the left lower lobe with a peripheral distribution. Follow-up is recommended. Electronically Signed: Jesus Solitario, at 14:00 EST , Service support , Chest CTA 07/30/20 13:37 IMPRESSION: Nonocclusive pulmonary emboli in the upper lobe pulmonary artery. Diffuse increased interstitial markings involving both lungs worse in the lower lobes with areas of confluence. Follow-up is recommended. Electronically Signed: Jesus Solitario, at 14:28 EST , Service support , Medical Necessity - Tobacco Use Smoking Status: Former smoker Tobacco Use: Cigarettes Assessment/Plan All Active Problems (Last Reviewed 07/16/20 @ 23:[address] Richard Gaona MD) COVID-19 (Acute) Hypoxia (Acute) Hypokalemia (Acute) Respiratory insufficiency (Acute) RECOMMENDATIONS: 1. Continue combination of BiPAP and Airvo heated high flow to maintain saturations at or above 90%. 2. Continue treatment dose Lovenox twice daily. 3. Administer IV Lasix today. 4. Start scheduled BuSpar twice daily. 5. Continue Seroquel nightly. 6. Stop fluids. 7. Continue antimicrobials. IMPRESSIONS: 1. Acute hypoxemic respiratory failure secondary to COVID-19 pneumonia/pulmonary emboli The patient continues to be quite tenuous from a respiratory perspective with high oxygen requirement. The patient has already completed a treatment course of remdesivir and Decadron. She also received convalescent plasma. CTA chest obtained during this hospitalization did reveal small upper lobe pulmonary emboli. The patient remains on therapeutic Lovenox. Continue BiPAP and airvo heated high flow to maintain saturations at or above 90%. Continue attempts at diuresis as tolerated by hemodynamics and renal function. 2. Acute kidney injury/advanced age/anxiety Complicates care, management, recovery and prognosis. Continue current supportive measures. The patient will be started on scheduled BuSpar today in hopes of helping to alleviate some of her anxiety. This note was generated with [employer]zaicoation software. It may contain incorrect words, spelling, and punctuation that were not noted in checking the note before signing. Inpatient E&M: [id number] Subs Hosp L3
--- NOTE | 2020-08-02 07:31 | PN_ITS ---
Patient Problems: Active and Suspected Problems (Last Reviewed 07/16/20 @ 23:[address] Richard Gaona MD) COVID-19 (Acute) Hypoxia (Acute) Hypokalemia (Acute) Respiratory insufficiency (Acute) Reason for Visit: Acute hypoxic respiratory failure secondary to COVID-19 pneumonia Subjective: Patient is a 64-year-old lady who has been on admission for total of 17 days admitted with acute hypoxic respiratory failure secondary to COVID-19 pneumonia Objective: GENERAL: cooperative but appears dyspneic at rest HEENT: Atraumatic; EYES; Anicteric, Normal Conjunctiva NECK; supple, normal thyroid, RESPIRATORY: Diminished to auscultation CARDIOVASCULAR: Regular S1 S2, GI: soft, normoactive bowel sounds, : No Renal angle tenderness; EXTREMITIES: No edema, no clubbing, MUSCULOSKELETAL: no muscle waisting NEURO: Awake; no lateralizing signs. SKIN: No Rash PSYCH; Flat affect Vitals/I&O's: Vital Signs Temp Pulse Resp BP Pulse Ox 98.5 F 91 23 H 124/73 H 97 08/02/20 04:00 08/02/20 06:00 08/02/20 06:00 08/02/20 06:00 08/02/20 06:00 Oxygen Flow Rate (L/min) 55 Oxygen Delivery Method Bi-pap Weight: 77.7 kg Body Mass Index (BMI) 30.5 Intake and Output for Last 24 Hours 07/31/20 08/01/20 08/02/20 23:59 23:59 23:59 Intake Total 3132 / 3132 2000.00 / 2120.00 170 / 170 Output Total 600 / 600 1400 / 1400 350 / 350 Balance 2532 / 2532 600.00 / 720.00 -180 / -180 Laboratory Results 08/02/20 00:23: Specimen Type ART, Sample Site L Radial, pH 7.49 H, Bicarbonate Actual 24.3, Total CO2 25, Base Excess 1, O2 Saturation 93 L, O2 % 90, ABG pCO2 31.9 L, ABG pO2 60 L, Kwan Test Positive, Respiration Rate 12, O2 Delivery Device BiPAP, POC PEEP 10, POC Pressure Suppt 16 08/02/20 04:00: WBC 10.7, RBC 4.02 L, Hgb 11.8 L, Hct 35.4 L, MCV 88.1, MCH 29.4, MCHC 33.3 D, RDW Std Deviation 45.3 H, RDW Coeff of Brittanie 14.3, Plt Count 245, MPV 10.3, Immature Gran % (Auto) 0.900, Neut % (Auto) 83.2 H, Lymph % (Auto) 7.6 L, [place] % (Auto) 7.7, Eos % (Auto) 0.5, Baso % (Auto) 0.1, Absolute Neuts (auto) 8.9 H, Absolute Lymphs (auto) 0.81 L, Nucleated RBC % 0 08/02/20 04:00: Sodium 140, Potassium 4.1, Chloride 107, Carbon Dioxide 26.0, Anion Gap 7, BUN 17, Creatinine 0.98, Estim Creat Clear Calc 49.42, Est GFR (MDRD) Af Amer 73, Est GFR (MDRD) Non-Af 61, BUN/Creatinine Ratio 17.4, Glucose 113 H, Calcium 8.3 L, Total Bilirubin 0.80, AST 29, ALT 51, Alkaline Phosphatase 102, Total Protein 6.3 L, Albumin 1.9 L, Globulin 4.4 H, Albumin/Globulin Ratio 0.4 L Current Medications Acetaminophen (Acetaminophen 325 Mg Tablet) 650 mg PO Q6H PRN PRN PRN Reason: Pain Score 1-10/Temp > 100.7 F Last Admin: 07/30/20 16:43 Dose: 650 mg Documented by: Hydrocodone Bitart/Acetaminophen (Hydrocodone Bitartrate/Apap 5/325 Tablet) 2 tablet PO Q4H PRN PRN PRN Reason: pain 4-10 Last Admin: 08/01/20 16:30 Dose: 2 tablet Documented by: Albuterol Sulfate (Albuterol Sulfate 8 Gm Inhaler (60 Puffs)) 2 puff INHALATION Q4H PRN PRN PRN Reason: SOB &/OR WHEEZING Buspirone HCl (Buspirone 5 Mg Tablet) 10 mg PO BID [facility] Enoxaparin Sodium (Enoxaparin 80 Mg/0.8 Ml Syringe) 80 mg SC BID [facility] Last Admin: 08/01/20 23:36 Dose: 80 mg Documented by: Furosemide (Furosemide 40 Mg/4 Ml Vial) 40 mg IV X1 ONE Stop: 08/02/20 07:19 Gabapentin (Gabapentin 100 Mg Capsule) 200 mg PO TIDCM [facility] Last Admin: 08/01/20 17:44 Dose: 200 mg Documented by: Piperacillin Sod/Tazobactam (Sod 3.375 gm/ Sodium Chloride) 50 mls @ 12.5 mls /hr IV Q8 [facility] Last Admin: 08/02/20 05:46 Dose: 12.5 mls/hr Documented by: Levothyroxine Sodium (Levothyroxine 25 Mcg Tablet) 25 mcg PO DAILY [facility] Last Admin: 08/01/20 09:02 Dose: 25 mcg Documented by: Loperamide HCl (Loperamide 2 Mg Capsule) 2 mg PO Q4H PRN PRN PRN Reason: DIARRHEA/LOOSE STOOLS Last Admin: 07/27/20 08:56 Dose: 2 mg Documented by: Melatonin (Melatonin 3 Mg Tablet) 3 mg PO QHS PRN PRN PRN Reason: INSOMNIA Last Admin: 07/31/20 21:25 Dose: 3 mg Documented by: Nystatin (Nystatin 500,000 Unit/5 Ml Udc) 500,000 unit PO 4X/DAY [facility] Last Admin: 08/01/20 23:36 Dose: 500,000 unit Documented by: Ondansetron HCl (Ondansetron 4 Mg/2 Ml Vial) 4 mg IV Q6H PRN PRN PRN Reason: NAUSEA/VOMITING Pantoprazole Sodium (Pantoprazole Sodium 40 Mg Tablet) 40 mg PO BID [facility] Last Admin: 08/01/20 23:36 Dose: 40 mg Documented by: Potassium Chloride (Potassium Chloride 20 Meq Tablet) 40 meq PO BIDCM [facility] Last Admin: 08/01/20 16:30 Dose: 40 meq Documented by: Quetiapine Fumarate (Quetiapine 25 Mg Tablet) 50 mg PO QHS [facility] Last Admin: 08/01/20 23:36 Dose: 50 mg Documented by: Sodium Chloride (0.9% Saline Lock 10 Ml Syringe) 10 - 40 ml IV UD PRN PRN Reason: SALINE FLUSH Last Admin: 07/27/20 17:16 Dose: 10 ml Documented by: STROKE Vital Signs/Narrative: Vital Signs Temp Pulse Resp BP Pulse Ox 08/02/20 06:00 91 23 H 124/73 H 97 08/02/20 05:00 110 H 27 H 124/75 H 94 08/02/20 04:22 105 H 26 H 95 08/02/20 04:00 98.5 F 105 H 25 H 113/54 L 95 Medical Necessity - Tobacco Use Smoking Status: Former smoker Tobacco Use: Cigarettes Assessment/Plan All Active Problems (Last Reviewed 07/16/20 @ 23:[address] Richard Gaona MD) COVID-19 (Acute) Hypoxia (Acute) Hypokalemia (Acute) Respiratory insufficiency (Acute) Patient is a 64-year-old lady who has been on admission for total of 17 days admitted with acute hypoxic respiratory failure secondary to COVID-19 pneumonia 1. Acute hypoxic respiratory failure secondary to acute COVID-19 infe ction/pneumonia Patient was transferred to the intensive care unit placed on noninvasive ventilation BiPAP with FiO2 of 90% which has since been weaned down to Airvo -Patient has already completed therapy with remdesivir and Decadron. On therapeutic Lovenox 2. Acute pulmonary embolism ?Secondary to COVID-19 infection patient is on therapeutic Lovenox 3. Acute viral gastroenteritis ?Secondary to COVID-19 infection treated symptomatically 4. Acute kidney injury ?Superimposed on chronic kidney disease stage III managed with IV fluid; resolved 5. Hypothyroidism - Patient is on levothyroxine home dose continued 6. Hypokalemia ?Corrected per protocol 7. Hypomagnesemia ?Corrected per protocol 7. Essential hypertension ?Patient antihypertensives on hold 8. Physical deconditioning - Requested for PT OT eval and social media job titles to assist with discharge planning Inpatient E&M: [id number] Subs Hosp L2
[2020-08-02] MEDS: Levothyroxine 25 MCG TABLET PO (08:14)
[2020-08-02] MEDS: Furosemide 40 MG/4 ML Vial IV (08:14)
[2020-08-02] MEDS: Gabapentin 100 MG Capsule 200 MG PO ×3 (08:14→17:06)
[2020-08-02] MEDS: Pantoprazole Sodium 40 MG Tablet PO ×2 (08:14→20:10)
[2020-08-02] MEDS: Enoxaparin 80 MG/0.8 ML Syringe SC ×2 (08:14→20:11)
[2020-08-02] MEDS: NYSTATIN 500,000 UNIT/5 ML UDC 500000 UNIT PO ×4 (08:14→20:10)
[2020-08-02] MEDS: busPIRone 5 MG Tablet 10 MG PO ×2 (08:20→20:11)
[2020-08-02] MEDS: Loperamide 2 MG Capsule PO (10:18)
[2020-08-02] MEDS: HYDROcodone Bitartrate/Apap 5/325 Tablet PO ×2 (10:18→20:09)
--- NOTE | 2020-08-02 11:12 | CASEMGMT ---
Addendum entered by Deb Pagan 08/02/20 13:59: [facility] returned call, though they can take COVID+ patients they cannot take pts on AIRVO. AMARI Selby Original Note: This SW called additional facilities to see if they can take pts with COVID and on AirVo, this is a list of all places called who cannot take pt: The following facilities take ventilated patients and may be able to do AirVo, but are not taking COVID+ patients: [facility] in [facility] The following facilities take patients with COVID+, but do NOT take patients on AirVo: [facility] in [facility] in [facility] in [facility] in [facility] AMARI Selby
--- NOTE | 2020-08-02 12:52 | PN.ID_ITS ---
Patient Problems: Active and Suspected Problems (Last Reviewed 07/16/20 @ 23:[address] Richard Gaona MD) COVID-19 (Acute) Hypoxia (Acute) Hypokalemia (Acute) Respiratory insufficiency (Acute) Subjective: Feeling a little better today, no fever, some cough. No n/v/d. - Physical Exam Vitals/I&O's: Vital Signs Temp Pulse Resp BP Pulse Ox 98.5 F 79 29 H 85/55 L 91 08/02/20 04:00 08/02/20 11:55 08/02/20 11:00 08/02/20 11:00 08/02/20 11:00 Oxygen Flow Rate (L/min) 55 Oxygen Delivery Method Airvo Weight: 77.7 kg Body Mass Index (BMI) 30.5 Intake and Output for Last 24 Hours 07/31/20 08/01/20 08/02/20 23:59 23:59 23:59 Intake Total 3132 / 3132 2000.00 / 2120.00 570 / 570 Output Total 600 / 600 1400 / 1400 700 / 700 Balance 2532 / 2532 600.00 / 720.00 -130 / -130 General: Alert, Cooperative, No apparent distress Lungs: Diminished Cardiovascular: Regular rate, Regular Rhythm Abdomen: Soft, Non Tender, Non-Distended Skin: No rashes Microbiology Past 72 Hours 07/30/20 17:07 Blood Culture (Wb) - Anticubital Right Blood Culture - Preliminary No growth in 48 hours. 07/30/20 17:15 Blood Culture (Wb) - Right Hand Blood Culture - Preliminary No growth in 48 hours. Laboratory Results 08/02/20 00:23: Specimen Type ART, Sample Site L Radial, pH 7.49 H, Bicarbonate Actual 24.3, Total CO2 25, Base Excess 1, O2 Saturation 93 L, O2 % 90, ABG pCO2 31.9 L, ABG pO2 60 L, Kwan Test Positive, Respiration Rate 12, O2 Delivery Device BiPAP, POC PEEP 10, POC Pressure Suppt 16 08/02/20 04:00: WBC 10.7, RBC 4.02 L, Hgb 11.8 L, Hct 35.4 L, MCV 88.1, MCH 29.4, MCHC 33.3 D, RDW Std Deviation 45.3 H, RDW Coeff of Brittanie 14.3, Plt Count 245, MPV 10.3, Immature Gran % (Auto) 0.900, Neut % (Auto) 83.2 H, Lymph % (Auto) 7.6 L, [place] % (Auto) 7.7, Eos % (Auto) 0.5, Baso % (Auto) 0.1, Absolute Neuts (auto) 8.9 H, Absolute Lymphs (auto) 0.81 L, Nucleated RBC % 0 08/02/20 04:00: Sodium 140, Potassium 4.1, Chloride 107, Carbon Dioxide 26.0, Anion Gap 7, BUN 17, Creatinine 0.98, Estim Creat Clear Calc 49.42, Est GFR (MDRD) Af Amer 73, Est GFR (MDRD) Non-Af 61, BUN/Creatinine Ratio 17.4, Glucose 113 H, Calcium 8.3 L, Total Bilirubin 0.80, AST 29, ALT 51, Alkaline Phosphatase 102, Total Protein 6.3 L, Albumin 1.9 L, Globulin 4.4 H, Albumin/Globulin Ratio 0.4 L Current Medications Acetaminophen (Acetaminophen 325 Mg Tablet) 650 mg PO Q6H PRN PRN PRN Reason: Pain Score 1-10/Temp > 100.7 F Last Admin: 07/30/20 16:43 Dose: 650 mg Documented by: Hydrocodone Bitart/Acetaminophen (Hydrocodone Bitartrate/Apap 5/325 Tablet) 2 tablet PO Q4H PRN PRN PRN Reason: pain 4-10 Last Admin: 08/02/20 10:18 Dose: 2 tablet Documented by: Albuterol Sulfate (Albuterol Sulfate 8 Gm Inhaler (60 Puffs)) 2 puff INHALATION Q4H PRN PRN PRN Reason: SOB &/OR WHEEZING Buspirone HCl (Buspirone 5 Mg Tablet) 10 mg PO BID [facility] Last Admin: 08/02/20 08:20 Dose: 10 mg Documented by: Enoxaparin Sodium (Enoxaparin 80 Mg/0.8 Ml Syringe) 80 mg SC BID [facility] Last Admin: 08/02/20 08:14 Dose: 80 mg Documented by: Gabapentin (Gabapentin 100 Mg Capsule) 200 mg PO TIDCM [facility] Last Admin: 08/02/20 12:40 Dose: 200 mg Documented by: Levothyroxine Sodium (Levothyroxine 25 Mcg Tablet) 25 mcg PO DAILY [facility] Last Admin: 08/02/20 08:14 Dose: 25 mcg Documented by: Loperamide HCl (Loperamide 2 Mg Capsule) 2 mg PO Q4H PRN PRN PRN Reason: DIARRHEA/LOOSE STOOLS Last Admin: 08/02/20 10:18 Dose: 2 mg Documented by: Melatonin (Melatonin 3 Mg Tablet) 3 mg PO QHS PRN PRN PRN Reason: INSOMNIA Last Admin: 07/31/20 21:25 Dose: 3 mg Documented by: Nystatin (Nystatin 500,000 Unit/5 Ml Udc) 500,000 unit PO 4X/DAY [facility] Last Admin: 08/02/20 12:40 Dose: 500,000 unit Documented by: Ondansetron HCl (Ondansetron 4 Mg/2 Ml Vial) 4 mg IV Q6H PRN PRN PRN Reason: NAUSEA/VOMITING Pantoprazole Sodium (Pantoprazole Sodium 40 Mg Tablet) 40 mg PO BID [facility] Last Admin: 08/02/20 08:14 Dose: 40 mg Documented by: Potassium Chloride (Potassium Chloride 20 Meq Tablet) 40 meq PO BIDCM [facility] Last Admin: 08/02/20 08:14 Dose: 40 meq Documented by: Quetiapine Fumarate (Quetiapine 25 Mg Tablet) 50 mg PO QHS [facility] Last Admin: 08/01/20 23:36 Dose: 50 mg Documented by: Sodium Chloride (0.9% Saline Lock 10 Ml Syringe) 10 - 40 ml IV UD PRN PRN Reason: SALINE FLUSH Last Admin: 07/27/20 17:16 Dose: 10 ml Documented by: Medical Necessity - Tobacco Use Smoking Status: Former smoker Tobacco Use: Cigarettes Route of nutrition/ use of supplements: [] Nutritional Intake: [] IV Site: [] Gr Catheter: [] - Assessment/Plan Antibiotics: [] Assessment/Plan: [] Active and Suspected Problems (Last Reviewed 07/16/20 @ 23:[address] Richard Gaona MD) COVID-19 (Acute) Hypoxia (Acute) Hypokalemia (Acute) Respiratory insufficiency (Acute) On dex, completed remdesivir. Got plasma 07/19. 07/30 felt worse with fever overnight, still high O2 reqs. Started on empiric vanc/zosyn. Cxs neg, CT showed PE, and PCT was less than 0.2. Stopped vanc 08/01, will stop zosyn today. Will follow
--- NOTE | 2020-08-02 13:04 | CASEMGMT ---
Addendum entered by Neal Bolanos 08/02/20 13:11: Katy CHAVIRA nurse . Original Note: RN YING Note: Call received from CAIT Burns nurse to discuss case. Peer to Peer was denied by [facility]. RN YING gave updated information re: patient returning to ICU, continuing on airvo without significant weaning, and [facility] recommendation for LTACH level of care on discharge. Also let nurse know that 11 SNF's in the area have denied referral for this patient due to covid + or inability to safely care for patient with airvo, high oxygen needs. -Per CAIT Burns- appeal is recommended and she will fax information on how to initiate appeal which may take a few days. Jessica MANNN RN ACM
[2020-08-02] MEDS: QUEtiapine 25 MG Tablet 50 MG PO (20:10)
[2020-08-02] MEDS: 0.9% Saline Lock 10 ML Syringe IV (20:14)
--- NOTE | 2020-08-02 21:10 | CPS ---
changed water on AirVo and Decreased FIO2 to 80%
[2020-08-03] VITALS (35 sets, daily range): BP systolic 82–116; BP diastolic 37–65; PULSE 70–101; RESP 17–36; TEMP 36.4–38.8; O2SAT 77–98
[2020-08-03] MEDS: HYDROcodone Bitartrate/Apap 5/325 Tablet PO ×2 (02:32→10:26)
--- NOTE | 2020-08-03 02:40 | NURSING ---
pt c/o back pain. po down to 77 % on airvo 55l/ 80 fio2. Pt said she did not want to wear the bipap. resp paged to increase airvo
--- NOTE | 2020-08-03 02:56 | NURSING ---
po came up to 91% with airvo 55%
[2020-08-03 04:18] LABS: Absolute Lymphocyte Count 0.96 X10^3/uL (0.83-4.51); Absolute Neutrophil Count 6.5 X10^3/uL (2.0-7.7); Basophil# 0.02 X10^3/uL; Basophil% 0.2 % (0-1); Eosinophil# 0.15 X10^3/uL; Eosinophils% 1.8 % (0-5); Hematocrit 32.4 % (37-47); Hemoglobin 10.6 g/dL (12.0-15.0); Lymphocyte # 0.96 X10^3/ul (4.0); Lymphocyte % 11.3 % (19-41); Mean Corp Hgb Conc 32.7 g/dL (32-36); Mean Corpuscular Hgb 29.3 pg (27.0-32.0); Mean Corpuscular Volume 89.5 fL (81-99); Mean Platelet Vol. 10.4 fl (6.2-12.0); Monocyte# 0.76 X10^3/uL; NRBC Flagged by Analyzer 0 % (0-5); Neutrophil % 76.9 % (47-70); Platelet Count 213 K/mm3 (150-450); RBC Distribution Width CV 14.5 % (11.6-14.6); RBC Distribution Width SD 46.6 fl (35.1-43.9); Red Blood Count 3.62 M/mm3 (4.2-5.4); White Blood Count 8.5 K/mm3 (4.4-11.0)
[2020-08-03 04:30] LABS: ALB/GLOB Ratio 0.4 RATIO (0.9-2.4); AST(SGOT) 24 U/L (15-37); Alanine Aminotransfer ALT/SGPT 48 U/L (13-56); Albumin, Serum 1.7 g/dL (3.2-5.0); Alkaline Phosphatase 98 U/L (45-117); Anion Gap 6 (5-15); BUN 18 mg/dL (7-18); BUN/Creat Ratio 17.5 RATIO (10-20); Calcium,Total 8.4 mg/dL (8.5-10.1); Chloride 108 mmol/L (98-107); Creatinine, Serum 1.03 mg/dL (0.55-1.02); EST Glomerular Filtration Rate 57 mL/min (>60); Est Glom Filt Rate - Afr Amer 69 mL/min (>60); Estimated Creatinine Clearance 47.02 ml/min; Globulin 4.5 g/dL (2.2-4.2); Glucose 116 mg/dL (74-106); Magnesium 1.8 mg/dL (1.6-2.6); Potassium 3.8 mmol/L (3.5-5.1); Protein, Total 6.2 g/dL (6.4-8.2); Sodium Level 140 mmol/L (136-145)
--- NOTE | 2020-08-03 06:09 | PCM.PN.INT ---
Subjective: The patient was seen and examined at the bedside this morning. Events from the last 24 hours have been reviewed. The patient is currently afebrile, hemodynamically stable and maintaining appropriate oxygen saturations on Airvo with an FiO2 requirement of 80% and flow rate of 55 L/min. Creatinine increased somewhat in light of attempts at diuresis. Despite all of this, the patient believes that she is improving. Nevertheless, the patient does report getting short of breath with even minimal amounts of exertion. Objective: The patient's most recent lab work, culture data and imaging studies have all been personally reviewed. Coronavirus PCR was positive on July 14. CTA chest completed on July 30 did reveal small left upper lobe PE. General: Alert, Cooperative, No apparent distress, - - Quite fatigued in appearance. HEENT: Atraumatic, Normocephalic Oral: No Gingival or Mucosal Lesions/ Ulcerations Neck: Supple, No Nodes, Trachea Midline Lungs: No rhonchi, No wheeze, No rales, Diminished, Tachypneic Cardiovascular: Regular rate, Regular Rhythm, Normal S1, Normal S2, No murmurs Abdomen: Bowel Sounds Present, Soft, Non Tender Extremities: No clubbing, No cyanosis, No edema Skin: No breakdown Musculoskeletal: No Tenderness to Palpation of Joints or Extremities Lymphatic: No Cervical, Supraclavicular, or Inguinal Adenopathy Neurological: Cranial nerves II-XII grossly intact, Neuro grossly intact Psych/Mental Status: Flat Affect Vital Signs Temp Pulse Resp BP Pulse Ox 97.9 F 70 21 H 90/58 L 93 08/03/20 04:00 08/03/20 05:00 08/03/20 05:00 08/03/20 05:00 08/03/20 05:00 Oxygen Flow Rate (L/min) 55 Oxygen Delivery Method Airvo Weight: 171 lb 4.787 oz Body Mass Index (BMI) 30.5 Intake and Output for Last 24 Hours 08/01/20 08/02/20 08/03/20 23:59 23:59 23:59 Intake Total 1999.00 / 2120.00 1770 / 1770 Output Total 1400 / 1400 850 / 950 100 / 100 Balance 600.00 / 720.00 920 / 820 -100 / -100 Labs (Last 48 Hours) 08/02/20 08/02/20 08/02/20 00:23 04:00 04:00 WBC 10.7 RBC 4.02 L Hgb 11.8 L Hct 35.4 L MCV 88.1 MCH 29.4 MCHC 33.3 D RDW Std Deviation 45.3 H RDW Coeff of Brittanie 14.3 Plt Count 245 MPV 10.3 Immature Gran % (Auto) 0.900 Neut % (Auto) 83.2 H Lymph % (Auto) 7.6 L [place] % (Auto) 7.7 Eos % (Auto) 0.5 Baso % (Auto) 0.1 Absolute Neuts (auto) 8.9 H Absolute Lymphs (auto) 0.81 L Nucleated RBC % 0 Specimen Type ART Sample Site L Radial pH 7.49 H Bicarbonate Actual 24.3 Total CO2 25 Base Excess 1 O2 Saturation 93 L O2 % 90 ABG pCO2 31.9 L ABG pO2 60 L Kwan Test Positive Respiration Rate 12 O2 Delivery Device BiPAP POC PEEP 10 POC Pressure Suppt 16 Sodium 140 Potassium 4.1 Chloride 107 Carbon Dioxide 26.0 Anion Gap 7 BUN 17 Creatinine 0.98 Estim Creat Clear Calc 49.42 Est GFR (MDRD) Af Amer 73 Est GFR (MDRD) Non-Af 61 BUN/Creatinine Ratio 17.4 Glucose 113 H Calcium 8.3 L Magnesium Total Bilirubin 0.80 AST 29 ALT 51 Alkaline Phosphatase 102 Total Protein 6.3 L Albumin 1.9 L Globulin 4.4 H Albumin/Globulin Ratio 0.4 L 08/03/20 08/03/20 04:05 04:05 WBC 8.5 RBC 3.62 L Hgb 10.6 L Hct 32.4 L MCV 89.5 MCH 29.3 MCHC 32.7 RDW Std Deviation 46.6 H RDW Coeff of Brittanie 14.5 Plt Count 213 MPV 10.4 Immature Gran % (Auto) 0.800 Neut % (Auto) 76.9 H Lymph % (Auto) 11.3 L [place] % (Auto) 9.0 Eos % (Auto) 1.8 Baso % (Auto) 0.2 Absolute Neuts (auto) 6.5 Absolute Lymphs (auto) 0.96 Nucleated RBC % 0 Specimen Type Sample Site pH Bicarbonate Actual Total CO2 Base Excess O2 Saturation O2 % ABG pCO2 ABG pO2 Kwan Test Respiration Rate O2 Delivery Device POC PEEP POC Pressure Suppt Sodium 140 Potassium 3.8 Chloride 108 H Carbon Dioxide 26.0 Anion Gap 6 BUN 18 Creatinine 1.03 H Estim Creat Clear Calc 47.02 Est GFR (MDRD) Af Amer 69 Est GFR (MDRD) Non-Af 57 L BUN/Creatinine Ratio 17.5 Glucose 116 H Calcium 8.4 L Magnesium 1.8 Total Bilirubin 0.50 AST 24 ALT 48 Alkaline Phosphatase 98 Total Protein 6.2 L Albumin 1.7 L Globulin 4.5 H Albumin/Globulin Ratio 0.4 L Microbiology 07/30/20 17:07 Blood Culture (Wb) - Anticubital Right Blood Culture - Preliminary No growth in 48 hours. 07/30/20 17:15 Blood Culture (Wb) - Right Hand Blood Culture - Preliminary No growth in 48 hours. Clinical Impression(s) from Imaging Studies Chest X-Ray 07/16/20 15:58 IMPRESSION: Normal x-ray examination of the chest. Electronically Signed: Eddie Rivera DO at 16:09 EDT Tel [phone], Service support , Chest X-Ray 07/30/20 13:25 IMPRESSION: New bilateral pulmonary infiltrates worse in the left lower lobe with a peripheral distribution. Follow-up is recommended. Electronically Signed: Jesus Solitario, at 14:00 EST , Service support , Chest CTA 07/30/20 13:37 IMPRESSION: Nonocclusive pulmonary emboli in the upper lobe pulmonary artery. Diffuse increased interstitial markings involving both lungs worse in the lower lobes with areas of confluence. Follow-up is recommended. Electronically Signed: Jesus Solitario, at 14:28 EST , Service support , Medical Necessity - Tobacco Use Smoking Status: Former smoker Tobacco Use: Cigarettes Assessment/Plan All Active Problems (Last Reviewed 07/16/20 @ 23:[address] Richard Gaona MD) COVID-19 (Acute) Hypoxia (Acute) Hypokalemia (Acute) Respiratory insufficiency (Acute) RECOMMENDATIONS: 1. Continue combination of BiPAP and Airvo heated high flow to maintain saturations at or above 90%. 2. Continue treatment dose Lovenox twice daily. 3. Continue scheduled BuSpar twice daily. Stop scheduled Seroquel. 4. Provide with incentive spirometer and encourage use. 5. Physical therapy to work with the patient. IMPRESSIONS: 1. Acute hypoxemic respiratory failure secondary to COVID-19 pneumonia/pulmonary emboli The patient continues to be quite tenuous from a respiratory perspective with high oxygen requirement. The patient has already completed a treatment course of remdesivir and Decadron. She also received convalescent plasma. CTA chest obtained during this hospitalization did reveal small upper lobe pulmonary emboli. The patient remains on therapeutic Lovenox. Continue BiPAP and airvo heated high flow to maintain saturations at or above 90%. Encourage aggressive incentive spirometer use and mobilize patient as tolerated. 2. Acute kidney injury/advanced age/anxiety Complicates care, management, recovery and prognosis. Continue current supportive measures. Continue scheduled BuSpar as ordered. Okay to discontinue Seroquel from my perspective. This note was generated with [employer] dictation software. It may contain incorrect words, spelling, and punctuation that were not noted in checking the note before signing. Inpatient E&M: [id number] [facility] L3
--- NOTE | 2020-08-03 07:18 | PCM.PN.HOSP ---
Patient Problems: Active and Suspected Problems (Last Reviewed 07/16/20 @ 23:[address] Richard Gaona MD) COVID-19 (Acute) Hypoxia (Acute) Hypokalemia (Acute) Respiratory insufficiency (Acute) Reason for Visit: Acute hypoxic respiratory failure secondary to COVID-19 pneumonia Subjective: Patient is a 64-year-old lady who has been on admission for total of 17 days admitted with acute hypoxic respiratory failure secondary to COVID-19 pneumonia -08/03/2020 patient remains in ICU still on high flow oxygen. Patient complains of pain in her oral cavity started on nystatin and lidocaine Objective: GENERAL: cooperative but appears dyspneic at rest HEENT: Atraumatic; EYES; Anicteric, Normal Conjunctiva NECK; supple, normal thyroid, RESPIRATORY: Diminished to auscultation CARDIOVASCULAR: Regular S1 S2, GI: soft, normoactive bowel sounds, : No Renal angle tenderness; EXTREMITIES: No edema, no clubbing, MUSCULOSKELETAL: no muscle waisting NEURO: Awake; no lateralizing signs. SKIN: No Rash PSYCH; Flat affect Vitals/I&O's: Vital Signs Temp Pulse Resp BP Pulse Ox 97.9 F 76 24 H 91/61 93 08/03/20 04:00 08/03/20 07:00 08/03/20 07:00 08/03/20 07:00 08/03/20 07:00 Oxygen Flow Rate (L/min) 55 Oxygen Delivery Method Airvo Weight: 76.6 kg Body Mass Index (BMI) 30.5 Intake and Output for Last 24 Hours 08/01/20 08/02/20 08/03/20 23:59 23:59 23:59 Intake Total 2000.00 / 2120.00 1770 / 1770 120 / 120 Output Total 1400 / 1400 850 / 950 300 / 300 Balance 600.00 / 720.00 920 / 820 -180 / -180 Microbiology Past 72 Hours 07/30/20 17:07 Blood Culture (Wb) - Anticubital Right Blood Culture - Preliminary No growth in 48 hours. 07/30/20 17:15 Blood Culture (Wb) - Right Hand Blood Culture - Preliminary No growth in 48 hours. Laboratory Results 08/03/20 04:05: WBC 8.5, RBC 3.62 L, Hgb 10.6 L, Hct 32.4 L, MCV 89.5, MCH 29.3, MCHC 32.7, RDW Std Deviation 46.6 H, RDW Coeff of Brittanie 14.5, Plt Count 213, MPV 10.4, Immature Gran % (Auto) 0.800, Neut % (Auto) 76.9 H, Lymph % (Auto) 11.3 L, [place] % (Auto) 9.0, Eos % (Auto) 1.8, Baso % (Auto) 0.2, Absolute Neuts (auto) 6.5, Absolute Lymphs (auto) 0.96, Nucleated RBC % 0 08/03/20 04:05: Sodium 140, Potassium 3.8, Chloride 108 H, Carbon Dioxide 26.0, Anion Gap 6, BUN 18, Creatinine 1.03 H, Estim Creat Clear Calc 47.02, Est GFR (MDRD) Af Amer 69, Est GFR (MDRD) Non-Af 57 L, BUN/Creatinine Ratio 17.5, Glucose 116 H, Calcium 8.4 L, Magnesium 1.8, Total Bilirubin 0.50, AST 24, ALT 48, Alkaline Phosphatase 98, Total Protein 6.2 L, Albumin 1.7 L, Globulin 4.5 H, Albumin/Globulin Ratio 0.4 L Current Medications Acetaminophen (Acetaminophen 325 Mg Tablet) 650 mg PO Q6H PRN PRN PRN Reason: Pain Score 1-10/Temp > 100.7 F Last Admin: 07/30/20 16:43 Dose: 650 mg Documented by: Hydrocodone Bitart/Acetaminophen (Hydrocodone Bitartrate/Apap 5/325 Tablet) 2 tablet PO Q4H PRN PRN PRN Reason: pain 4-10 Last Admin: 08/03/20 02:32 Dose: 2 tablet Documented by: Albuterol Sulfate (Albuterol Sulfate 8 Gm Inhaler (60 Puffs)) 2 puff INHALATION Q4H PRN PRN PRN Reason: SOB &/OR WHEEZING Buspirone HCl (Buspirone 5 Mg Tablet) 10 mg PO BID COUNTS INCLUDE 234 BEDS AT THE [facility] Last Admin: 08/02/20 20:11 Dose: 10 mg Documented by: Enoxaparin Sodium (Enoxaparin 80 Mg/0.8 Ml Syringe) 80 mg SC BID COUNTS INCLUDE 234 BEDS AT THE [facility] Last Admin: 08/02/20 20:11 Dose: 80 mg Documented by: Gabapentin (Gabapentin 100 Mg Capsule) 200 mg PO TIDCM COUNTS INCLUDE 234 BEDS AT THE [facility] Last Admin: 08/02/20 17:06 Dose: 200 mg Documented by: Levothyroxine Sodium (Levothyroxine 25 Mcg Tablet) 25 mcg PO DAILY COUNTS INCLUDE 234 BEDS AT THE [facility] Last Admin: 08/02/20 08:14 Dose: 25 mcg Documented by: Loperamide HCl (Loperamide 2 Mg Capsule) 2 mg PO Q4H PRN PRN PRN Reason: DIARRHEA/LOOSE STOOLS Last Admin: 08/02/20 10:18 Dose: 2 mg Documented by: Melatonin (Melatonin 3 Mg Tablet) 3 mg PO QHS PRN PRN PRN Reason: INSOMNIA Last Admin: 07/31/20 21:25 Dose: 3 mg Documented by: Nystatin (Nystatin 500,000 Unit/5 Ml Udc) 500,000 unit PO 4X/DAY COUNTS INCLUDE 234 BEDS AT THE [facility] Last Admin: 08/02/20 20:10 Dose: 500,000 unit Documented by: Ondansetron HCl (Ondansetron 4 Mg/2 Ml Vial) 4 mg IV Q6H PRN PRN PRN Reason: NAUSEA/VOMITING Pantoprazole Sodium (Pantoprazole Sodium 40 Mg Tablet) 40 mg PO BID COUNTS INCLUDE 234 BEDS AT THE [facility] Last Admin: 08/02/20 20:10 Dose: 40 mg Documented by: Potassium Chloride (Potassium Chloride 20 Meq Tablet) 40 meq PO BIDCM COUNTS INCLUDE 234 BEDS AT THE [facility] Last Admin: 08/02/20 17:06 Dose: 40 meq Documented by: Quetiapine Fumarate (Quetiapine 25 Mg Tablet) 50 mg PO QHS COUNTS INCLUDE 234 BEDS AT THE [facility] Last Admin: 08/02/20 20:10 Dose: 50 mg Documented by: Sodium Chloride (0.9% Saline Lock 10 Ml Syringe) 10 - 40 ml IV UD PRN PRN Reason: SALINE FLUSH Last Admin: 08/02/20 20:14 Dose: 20 ml Documented by: STROKE Vital Signs/Narrative: Vital Signs Temp Pulse Resp BP Pulse Ox 08/03/20 07:00 76 24 H 91/61 93 08/03/20 06:00 82 22 H 85/55 L 92 08/03/20 05:00 70 21 H 90/58 L 93 08/03/20 04:00 97.9 F 76 19 H 82/59 L 92 08/03/20 03:33 73 Medical Necessity - Tobacco Use Smoking Status: Former smoker Tobacco Use: Cigarettes Assessment/Plan All Active Problems (Last Reviewed 07/16/20 @ 23:[address] Richard Gaona MD) COVID-19 (Acute) Hypoxia (Acute) Hypokalemia (Acute) Respiratory insufficiency (Acute) Patient is a 64-year-old lady who has been on admission for total of 17 days admitted with acute hypoxic respiratory failure secondary to COVID-19 pneumonia 1. Acute hypoxic respiratory failure secondary to acute COVID-19 infection/pneumonia Patient was transferred to the intensive care unit placed on noninvasive ventilation BiPAP with FiO2 of 90% which has since been weaned down to Airvo -Patient has already completed therapy with remdesivir and Decadron. On therapeutic Lovenox ?08/03/2020: Remains on Airvo with an FiO2 in the ICU 2. Acute pulmonary embolism ?Secondary to COVID-19 infection patient is on therapeutic Lovenox 3. Acute viral gastroenteritis ?Secondary to COVID-19 infection treated symptomatically 4. Acute kidney injury ?Superimposed on chronic kidney disease stage III managed with IV fluid; resolved 5. Hypothyroidism - Patient is on levothyroxine home dose continued 6. Hypokalemia ?Corrected per protocol 7. Hypomagnesemia ?Corrected per protocol 7. Essential hypertension ?Patient antihypertensives on hold 8. Physical deconditioning - Requested for PT OT eval and psychologist social to assist with discharge planning 9. Oral candidiasis ?Patient started on oral nystatin Inpatient E&M: [id number] [facility] H[facility] L2
--- NOTE | 2020-08-03 08:23 | CPS ---
Changed water bottle on AIRVO.
[2020-08-03] MEDS: Pantoprazole Sodium 40 MG Tablet PO ×2 (08:30→20:48)
[2020-08-03] MEDS: Enoxaparin 80 MG/0.8 ML Syringe SC ×2 (08:30→20:48)
[2020-08-03] MEDS: Gabapentin 100 MG Capsule 200 MG PO ×3 (08:30→17:05)
[2020-08-03] MEDS: busPIRone 5 MG Tablet 10 MG PO ×2 (08:31→20:48)
[2020-08-03] MEDS: NYSTATIN 500,000 UNIT/5 ML UDC 500000 UNIT PO ×4 (08:31→20:51)
[2020-08-03] MEDS: Levothyroxine 25 MCG TABLET PO (08:31)
--- NOTE | 2020-08-03 08:44 | CASEMGMT ---
ROSANA CM Note: Appeal information received via fax. Called to Fast Appeal # , message left with call back information to begin a Fast Appeal for LTAC placement. Jessica BERNAL RN ACM
[2020-08-03] MEDS: BMX LIQUID 180 ML PO ×4 (10:21→20:52)
--- NOTE | 2020-08-03 13:45 | CASEMGMT ---
Addendum entered by Neal Bolanos 08/03/20 14:27: Call back received from Carlota Colindres. Appeal process requires a letter of appeal being requested by physician and clinical documentation to be faxed. ROSANA HE will continue process. Jessica PEREA Original Note: Call back from Case Management department. ROSANA HE requested Fast Appeal Process. Request was forwarded to Carlota Colindres who will call this CM back. Jessica PEREA
[2020-08-03] MEDS: Acetaminophen 325 MG Tablet 650 MG PO (17:07)
[2020-08-04] VITALS (37 sets, daily range): BP systolic 88–140; BP diastolic 45–82; PULSE 62–105; RESP 12–42; TEMP 36.1–37.2; O2SAT 77–96
[2020-08-04] MEDS: HYDROcodone Bitartrate/Apap 5/325 Tablet PO ×3 (01:18→19:41)
[2020-08-04 04:43] LABS: Absolute Lymphocyte Count 0.74 X10^3/uL (0.83-4.51); Absolute Neutrophil Count 7.9 X10^3/uL (2.0-7.7); Basophil# 0.02 X10^3/uL; Basophil% 0.2 % (0-1); Eosinophil# 0.19 X10^3/uL; Hematocrit 32.4 % (37-47); Hemoglobin 10.7 g/dL (12.0-15.0); Lymphocyte # 0.74 X10^3/ul (4.0); Lymphocyte % 7.7 % (19-41); Mean Corpuscular Hgb 29.6 pg (27.0-32.0); Mean Corpuscular Volume 89.5 fL (81-99); Mean Platelet Vol. 10.8 fl (6.2-12.0); Monocyte# 0.79 X10^3/uL; Monocyte% 8.2 % (0-10); NRBC Flagged by Analyzer 0 % (0-5); Neutrophil # 7.88 X10^3/uL (2.7-7.7); Neutrophil % 81.4 % (47-70); Platelet Count 237 K/mm3 (150-450); RBC Distribution Width CV 14.3 % (11.6-14.6); RBC Distribution Width SD 46.2 fl (35.1-43.9); Red Blood Count 3.62 M/mm3 (4.2-5.4); White Blood Count 9.7 K/mm3 (4.4-11.0)
[2020-08-04] MEDS: BMX LIQUID 180 ML PO (04:43)
[2020-08-04] MEDS: 0.9% Saline Lock 10 ML Syringe IV ×4 (04:43→23:33)
[2020-08-04 05:02] LABS: ALB/GLOB Ratio 0.4 RATIO (0.9-2.4); AST(SGOT) 32 U/L (15-37); Alanine Aminotransfer ALT/SGPT 51 U/L (13-56); Albumin, Serum 1.7 g/dL (3.2-5.0); Alkaline Phosphatase 105 U/L (45-117); Anion Gap 5 (5-15); BUN 15 mg/dL (7-18); BUN/Creat Ratio 15.5 RATIO (10-20); Chloride 108 mmol/L (98-107); Creatinine, Serum 0.97 mg/dL (0.55-1.02); EST Glomerular Filtration Rate 61 mL/min (>60); Est Glom Filt Rate - Afr Amer 74 mL/min (>60); Estimated Creatinine Clearance 49.93 ml/min; Globulin 4.8 g/dL (2.2-4.2); Glucose 117 mg/dL (74-106); Potassium 4.4 mmol/L (3.5-5.1); Protein, Total 6.5 g/dL (6.4-8.2); Sodium Level 139 mmol/L (136-145)
--- NOTE | 2020-08-04 06:53 | PCM.PN.INT ---
Subjective: The patient was seen and examined at the bedside this morning. Events from the last 24 hours have been reviewed. The patient is currently afebrile, hemodynamically stable and maintaining appropriate oxygen saturations on Airvo heated high flow with an FiO2 requirement of 90% and flow rate of 60 L/min. The patient continues to desaturate with even minimal amounts of exertion. She only wore BiPAP last night for approximately 1.5 hours. Objective: The patient's most recent lab work, culture data and imaging studies have all been personally reviewed. Coronavirus PCR was positive on July 14. CTA chest completed on July 30 did reveal small left upper lobe PE. General: Alert, Cooperative HEENT: Atraumatic, Normocephalic Oral: Dry Mucosa Neck: Supple, No Nodes, Trachea Midline Lungs: No rhonchi, No wheeze, No rales, Diminished, Tachypneic Cardiovascular: Regular rate, Regular Rhythm Abdomen: Bowel Sounds Present, Soft, Non Tender Extremities: No clubbing, No cyanosis, No edema Skin: No breakdown Musculoskeletal: No Tenderness to Palpation of Joints or Extremities Lymphatic: No Cervical, Supraclavicular, or Inguinal Adenopathy Neurological: Cranial nerves II-XII grossly intact, Neuro grossly intact Psych/Mental Status: Flat Affect Vital Signs Temp Pulse Resp BP Pulse Ox 98.0 F 72 24 H 88/51 L 93 08/04/20 05:00 08/04/20 06:00 08/04/20 06:00 08/04/20 06:00 08/04/20 06:00 Oxygen Flow Rate (L/min) 60 Oxygen Delivery Method Airvo Weight: 167 lb 8.821 oz Body Mass Index (BMI) 30.5 Intake and Output for Last 24 Hours 08/02/20 08/03/20 08/04/20 23:59 23:59 23:59 Intake Total 1770 / 1770 580 / 580 120 / 120 Output Total 850 / 950 600 / 600 Balance 920 / 820 - 120 / 120 Labs (Last 48 Hours) 08/03/20 08/03/20 08/04/20 04:05 04:05 04:35 WBC 8.5 9.7 RBC 3.62 L 3.62 L Hgb 10.6 L 10.7 L Hct 32.4 L 32.4 L MCV 89.5 89.5 MCH 29.3 29.6 MCHC 32.7 33.0 RDW Std Deviation 46.6 H 46.2 H RDW Coeff of Brittanie 14.5 14.3 Plt Count 213 237 MPV 10.4 10.8 Immature Gran % (Auto) 0.800 0.500 Neut % (Auto) 76.9 H 81.4 H Lymph % (Auto) 11.3 L 7.7 L [place] % (Auto) 9.0 8.2 Eos % (Auto) 1.8 2.0 Baso % (Auto) 0.2 0.2 Absolute Neuts (auto) 6.5 7.9 H Absolute Lymphs (auto) 0.96 0.74 L Nucleated RBC % 0 0 Sodium 140 Potassium 3.8 Chloride 108 H Carbon Dioxide 26.0 Anion Gap 6 BUN 18 Creatinine 1.03 H Estim Creat Clear Calc 47.02 Est GFR (MDRD) Af Amer 69 Est GFR (MDRD) Non-Af 57 L BUN/Creatinine Ratio 17.5 Glucose 116 H Calcium 8.4 L Magnesium 1.8 Total Bilirubin 0.50 AST 24 ALT 48 Alkaline Phosphatase 98 Total Protein 6.2 L Albumin 1.7 L Globulin 4.5 H Albumin/Globulin Ratio 0.4 L 08/04/20 04:35 WBC RBC Hgb Hct MCV MCH MCHC RDW Std Deviation RDW Coeff of Brittanie Plt Count MPV Immature Gran % (Auto) Neut % (Auto) Lymph % (Auto) [place] % (Auto) Eos % (Auto) Baso % (Auto) Absolute Neuts (auto) Absolute Lymphs (auto) Nucleated RBC % Sodium 139 Potassium 4.4 Chloride 108 H Carbon Dioxide 26.0 Anion Gap 5 BUN 15 Creatinine 0.97 Estim Creat Clear Calc 49.93 Est GFR (MDRD) Af Amer 74 Est GFR (MDRD) Non-Af 61 BUN/Creatinine Ratio 15.5 Glucose 117 H Calcium 9.0 Magnesium Total Bilirubin 0.50 AST 32 ALT 51 Alkaline Phosphatase 105 Total Protein 6.5 Albumin 1.7 L Globulin 4.8 H Albumin/Globulin Ratio 0.4 L Microbiology 07/30/20 17:07 Blood Culture (Wb) - Anticubital Right Blood Culture - Preliminary No growth in 48 hours. 07/30/20 17:15 Blood Culture (Wb) - Right Hand Blood Culture - Preliminary No growth in 48 hours. Clinical Impression(s) from Imaging Studies Chest X-Ray 10/30/20 15:58 IMPRESSION: Normal x-ray examination of the chest. Electronically Signed: Eddie Rivera DO at 16:09 EDT Tel [phone], Service support , Chest X-Ray 07/30/20 13:25 IMPRESSION: New bilateral pulmonary infiltrates worse in the left lower lobe with a peripheral distribution. Follow-up is recommended. Electronically Signed: Jesus Solitario, at 14:00 EST , Service support , Chest CTA 07/30/20 13:37 IMPRESSION: Nonocclusive pulmonary emboli in the upper lobe pulmonary artery. Diffuse increased interstitial markings involving both lungs worse in the lower lobes with areas of confluence. Follow-up is recommended. Electronically Signed: Jesus Solitario, at 14:28 EST , Service support , Medical Necessity - Tobacco Use Smoking Status: Former smoker Tobacco Use: Cigarettes Assessment/Plan All Active Problems (Last Reviewed 07/16/20 @ 23:[address] Richard Gaona MD) COVID-19 (Acute) Hypoxia (Acute) Hypokalemia (Acute) Respiratory insufficiency (Acute) RECOMMENDATIONS: 1. Continue combination of BiPAP and Airvo heated high flow to maintain saturations at or above 90%. 2. Continue treatment dose Lovenox twice daily. 3. Continue scheduled BuSpar twice daily. 4. Provide with incentive spirometer and encourage use. 5. Physical therapy to work with the patient. 6. Attempt gentle diuresis as tolerated by hemodynamics and renal function. 7. Obtain repeat chest x-ray this morning. IMPRESSIONS: 1. Acute hypoxemic respiratory failure secondary to COVID-19 pneumonia/pulmonary emboli The patient continues to be quite tenuous from a respiratory perspective with high oxygen requirement. The patient has already completed a treatment course of remdesivir and Decadron. She also received convalescent plasma. CTA chest obtained during this hospitalization did reveal small upper lobe pulmonary emboli. The patient remains on therapeutic Lovenox. Continue BiPAP and airvo heated high flow to maintain saturations at or above 90%. Encourage aggressive incentive spirometer use and mobilize patient as tolerated. Gentle diuresis will be continued as tolerated by hemodynamics and renal function. 2. Acute kidney injury/advanced age/anxiety Complicates care, management, recovery and prognosis. Continue current supportive measures. Continue scheduled BuSpar as ordered. UPDATE: The patient's respiratory status remains quite tenuous, despite noninvasive positive pressure ventilatory support with high pressure settings and FiO2 requirement. Her chest x-ray from this morning was reviewed and did reveal interval worsening. I did call and speak with infectious diseases and we will plan to restart empiric antimicrobials. The patient is at high risk for intubation in the next 24 hours. TIME: 38 minutes of critical care time, independent of procedures, was spent addressing the patient's acute hypoxemic respiratory failure, COVID-19 pneumonia, pulmonary emboli, acute kidney injury, review of all data and collaboration with the care team. [id number]) [phone] [id number] Critical care first hour
--- NOTE | 2020-08-04 07:33 | PN_ITS ---
Patient Problems: Active and Suspected Problems (Last Reviewed 07/16/20 @ 23:[address] Richard Gaona MD) COVID-19 (Acute) Hypoxia (Acute) Hypokalemia (Acute) Respiratory insufficiency (Acute) Reason for Visit: Acute hypoxic respiratory failure secondary to COVID-19 pneumonia Subjective: Patient is a 64-year-old lady who has been on admission for total of 17 days admitted with acute hypoxic respiratory failure secondary to COVID-19 pneumonia 08/04/2020: Patient patient seen still remains extremely anxious. Patient desaturated resulting in patient having to be placed back on BiPAP Objective: GENERAL: cooperative but appears dyspneic at rest HEENT: Atraumatic; EYES; Anicteric, Normal Conjunctiva NECK; supple, normal thyroid, RESPIRATORY: Diminished to auscultation CARDIOVASCULAR: Regular S1 S2, GI: soft, normoactive bowel sounds, : No Renal angle tenderness; EXTREMITIES: No edema, no clubbing, MUSCULOSKELETAL: no muscle waisting NEURO: Awake; no lateralizing signs. SKIN: No Rash PSYCH; Flat affect Vitals/I&O's: Vital Signs Temp Pulse Resp BP Pulse Ox 98.0 F 73 24 H 115/60 93 08/04/20 05:00 08/04/20 07:00 08/04/20 07:00 08/04/20 07:00 08/04/20 07:00 Oxygen Flow Rate (L/min) 60 Oxygen Delivery Method Airvo Weight: 76 kg Body Mass Index (BMI) 30.5 Intake and Output for Last 24 Hours 08/02/20 08/03/20 08/04/20 23:59 23:59 23:59 Intake Total 1770 / 1770 580 / 580 120 / 120 Output Total 850 / 950 600 / 600 Balance 920 / 820 - 120 / 120 Microbiology Past 72 Hours 08/01/20 17:52 Blood Culture (Wb) - Right Hand Blood Culture - Preliminary No growth in 48 hours. 08/01/20 17:45 Blood Culture (Wb) - Arm Right Blood Culture - Preliminary No growth in 48 hours. 07/30/20 17:07 Blood Culture (Wb) - Anticubital Right Blood Culture - Preliminary No growth in 48 hours. 07/30/20 17:15 Blood Culture (Wb) - Right Hand Blood Culture - Preliminary No growth in 48 hours. Laboratory Results 08/04/20 04:35: WBC 9.7, RBC 3.62 L, Hgb 10.7 L, Hct 32.4 L, MCV 89.5, MCH 29.6, MCHC 33.0, RDW Std Deviation 46.2 H, RDW Coeff of Brittanie 14.3, Plt Count 237, MPV 10.8, Immature Gran % (Auto) 0.500, Neut % (Auto) 81.4 H, Lymph % (Auto) 7.7 L, [place] % (Auto) 8.2, Eos % (Auto) 2.0, Baso % (Auto) 0.2, Absolute Neuts (auto) 7.9 H, Absolute Lymphs (auto) 0.74 L, Nucleated RBC % 0 08/04/20 04:35: Sodium 139, Potassium 4.4, Chloride 108 H, Carbon Dioxide 26.0, Anion Gap 5, BUN 15, Creatinine 0.97, Estim Creat Clear Calc 49.93, Est GFR (MDRD) Af Amer 74, Est GFR (MDRD) Non-Af 61, BUN/Creatinine Ratio 15.5, Glucose 117 H, Calcium 9.0, Total Bilirubin 0.50, AST 32, ALT 51, Alkaline Phosphatase 105, Total Protein 6.5, Albumin 1.7 L, Globulin 4.8 H, Albumin/Globulin Ratio 0.4 L Current Medications Acetaminophen (Acetaminophen 325 Mg Tablet) 650 mg PO Q6H PRN PRN PRN Reason: Pain Score 1-10/Temp > 100.7 F Last Admin: 08/03/20 17:07 Dose: 650 mg Documented by: Hydrocodone Bitart/Acetaminophen (Hydrocodone Bitartrate/Apap 5/325 Tablet) 1 tablet PO Q4H PRN PRN PRN Reason: Pain Score 6-10 Last Admin: 08/04/20 01:18 Dose: 1 tablet Documented by: Albuterol Sulfate (Albuterol Sulfate 8 Gm Inhaler (60 Puffs)) 2 puff INHALATION Q4H PRN PRN PRN Reason: SOB &/OR WHEEZING Buspirone HCl (Buspirone 5 Mg Tablet) 10 mg PO BID [facility] Last Admin: 08/03/20 20:48 Dose: 10 mg Documented by: Enoxaparin Sodium (Enoxaparin 80 Mg/0.8 Ml Syringe) 80 mg SC BID [facility] Last Admin: 08/03/20 20:48 Dose: 80 mg Documented by: Gabapentin (Gabapentin 100 Mg Capsule) 200 mg PO TIDCM [facility] Last Admin: 08/03/20 17:05 Dose: 200 mg Documented by: Levothyroxine Sodium (Levothyroxine 25 Mcg Tablet) 25 mcg PO DAILY [facility] Last Admin: 08/03/20 08:31 Dose: 25 mcg Documented by: Lidocaine/Diphenhydr/Alum/Mg/Simeth (Bmx Liquid 180 Ml) 5 ml PO Q3H PRN PRN PRN Reason: MOUTH IRRITATION Last Admin: 08/04/20 04:43 Dose: 5 ml Documented by: Loperamide HCl (Loperamide 2 Mg Capsule) 2 mg PO Q4H PRN PRN PRN Reason: DIARRHEA/LOOSE STOOLS Last Admin: 08/02/20 10:18 Dose: 2 mg Documented by: Melatonin (Melatonin 3 Mg Tablet) 3 mg PO QHS PRN PRN PRN Reason: INSOMNIA Last Admin: 07/31/20 21:25 Dose: 3 mg Documented by: Nystatin (Nystatin 500,000 Unit/5 Ml Udc) 500,000 unit PO 4X/DAY [facility] Last Admin: 08/03/20 20:51 Dose: 500,000 unit Documented by: Ondansetron HCl (Ondansetron 4 Mg/2 Ml Vial) 4 mg IV Q6H PRN PRN PRN Reason: NAUSEA/VOMITING Pantoprazole Sodium (Pantoprazole Sodium 40 Mg Tablet) 40 mg PO BID [facility] Last Admin: 08/03/20 20:48 Dose: 40 mg Documented by: Potassium Chloride (Potassium Chloride 20 Meq Tablet) 40 meq PO BIDCM [facility] Last Admin: 08/03/20 17:04 Dose: 40 meq Documented by: Sodium Chloride (0.9% Saline Lock 10 Ml Syringe) 10 - 40 ml IV UD PRN PRN Reason: SALINE FLUSH Last Admin: 08/04/20 04:43 Dose: 20 ml Documented by: STROKE Vital Signs/Narrative: Vital Signs Temp Pulse Resp BP Pulse Ox 08/04/20 07:00 73 24 H 115/60 93 08/04/20 06:00 72 24 H 88/51 L 93 08/04/20 05:00 98.0 F 70 28 H 93/52 L 93 08/04/20 04:03 74 08/04/20 04:00 74 26 H 98/60 94 08/04/20 03:50 74 23 H 93 Medical Necessity - Tobacco Use Smoking Status: Former smoker Tobacco Use: Cigarettes Assessment/Plan All Active Problems (Last Reviewed 07/16/20 @ 23:[address] Richard Gaona MD) COVID-19 (Acute) Hypoxia (Acute) Hypokalemia (Acute) Respiratory insufficiency (Acute) Patient is a 64-year-old lady who has been on admission for total of 17 days admitted with acute hypoxic respiratory failure secondary to COVID-19 pneumonia 1. Acute hypoxic respiratory failure secondary to acute COVID-19 infection/pneumonia Patient was transferred to the intensive care unit placed on noninvasive ventilation BiPAP with FiO2 of 90% which has since been weaned down to Airvo -Patient has already completed therapy with remdesivir and Decadron. On therapeutic Lovenox ?08/03/2020: Patient patient seen still remains extremely anxious. Patient desaturated resulting in patient having to be placed back on BiPAP 2. Acute pulmonary embolism ?Secondary to COVID-19 infection patient is on therapeutic Lovenox 3. Acute viral gastroenteritis ?Secondary to COVID-19 infection treated symptomatically 4. Acute kidney injury ?Superimposed on chronic kidney disease stage III managed with IV fluid; resolved 5. Hypothyroidism - Patient is on levothyroxine home dose continued 6. Hypokalemia ?Corrected per protocol 7. Hypomagnesemia ?Corrected per protocol 7. Essential hypertension ?Patient antihypertensives on hold 8. Physical deconditioning - Requested for PT OT eval and nursing home social worker to assist with discharge planning 9. Oral candidiasis ?Patient started on oral nystatin Inpatient E&M: [id number] [facility] L3
--- NOTE | 2020-08-04 08:02 | RAD_ITS ---
STUDY: X-RAY CHEST REASON FOR EXAM: Female, 64 years old. RESPIRATORY FAILURE. COVID + TECHNIQUE: Single AP portable view of the chest. COMPARISON: Comparison is made with prior study dated 07/30/2020. FINDINGS: EKG electrodes are seen. Since prior study, there has been progressive pulmonary infiltrates in both lungs worse in the left midlung and left lower lobe. Elevation of the right hemidiaphragm. There is no demonstrated pleural abnormality. Normal size heart. Normal mediastinum and trell. Normal visualized pulmonary arteries. Normal visualized aortic arch and descending thoracic aorta. There are degenerative changes of the visualized thoracic spine. Normal visualized ribs, clavicles, and shoulders. There is no demonstrated abnormality of the visualized soft tissue structures of the upper abdomen. RAD/Chest 1 View (Portable) IMPRESSION: Since prior study, there has been progressive pulmonary infiltrates worse in the left lung. Electronically Signed: Jesus Solitario, at 10:34 EST , Service support ,
--- NOTE | 2020-08-04 09:15 | CASEMGMT ---
ROSANA HE Note: Call to Poonam @ [facility] to discuss patient's high level of oxygen. Per her discussion with mgr, [facility] can take patient's with airvo and higher O2 settings if stable, however insurance may not consider 90-100% oxygen appropriate for dc. ROSANA HE will speak with Dr. Noe re: patient's status. Jessica BERNAL RN ACM
[2020-08-04] MEDS: Furosemide 40 MG/4 ML Vial IV (09:57)
--- NOTE | 2020-08-04 10:30 | CASEMGMT ---
RN CM Note: participate in ICU interdisciplinary rounds. The patient requiring Bipap 100% and is tachypneic. Failed mobility, and PT/OT on hold. Diet on hold due to respiratory status. Chest Xray worsened per physician, and patient is not medically ready for transfer to LTACH consideration. Appeal to insurance on hold for now. Physician will discuss code status with patient who is currently full code. DC PLAN: on hold currently. Jessica BERNAL RN ACM
[2020-08-04] MEDS: Gabapentin 100 MG Capsule 200 MG PO ×2 (12:42→19:41)
[2020-08-04] MEDS: busPIRone 5 MG Tablet 10 MG PO ×2 (12:44→19:41)
[2020-08-04] MEDS: NYSTATIN 500,000 UNIT/5 ML UDC 500000 UNIT PO ×4 (12:45→23:33)
[2020-08-04] MEDS: Enoxaparin 80 MG/0.8 ML Syringe SC ×2 (12:45→19:42)
[2020-08-04] MEDS: Levothyroxine 25 MCG TABLET PO (12:47)
[2020-08-04] MEDS: Pantoprazole Sodium 40 MG Tablet PO ×2 (12:47→19:41)
--- NOTE | 2020-08-04 15:04 | PN.ID_ITS ---
Patient Problems: Active and Suspected Problems (Last Reviewed 07/16/20 @ 23:[address] Richard Gaona MD) COVID-19 (Acute) Hypoxia (Acute) Hypokalemia (Acute) Respiratory insufficiency (Acute) Subjective: Fever last night, more dyspnea, some cough and sputum - Physical Exam Vitals/I&O's: Vital Signs Temp Pulse Resp BP Pulse Ox 98.0 F 105 H 35 H 140/82 H 93 08/04/20 12:00 08/04/20 12:30 08/04/20 12:30 08/04/20 12:00 08/04/20 12:30 Oxygen Flow Rate (L/min) 60 Oxygen Delivery Method Bi-pap Weight: 76 kg Body Mass Index (BMI) 30.5 Intake and Output for Last 24 Hours 08/02/20 08/03/20 08/04/20 23:59 23:59 23:59 Intake Total 1770 / 1770 580 / 580 120 / 120 Output Total 850 / 950 600 / 600 1050 / 1050 Balance 920 / 820 -20 / -20 -930 / -930 General: Alert, Cooperative Lungs: Diminished Cardiovascular: Regular rate, Regular Rhythm Abdomen: Soft, Non Tender, Non-Distended Skin: No rashes Microbiology Past 72 Hours 08/01/20 17:52 Blood Culture (Wb) - Right Hand Blood Culture - Preliminary No growth in 48 hours. 08/01/20 17:45 Blood Culture (Wb) - Arm Right Blood Culture - Preliminary No growth in 48 hours. 07/30/20 17:07 Blood Culture (Wb) - Anticubital Right Blood Culture - Preliminary No growth in 48 hours. 07/30/20 17:15 Blood Culture (Wb) - Right Hand Blood Culture - Preliminary No growth in 48 hours. Laboratory Results 08/04/20 04:35: WBC 9.7, RBC 3.62 L, Hgb 10.7 L, Hct 32.4 L, MCV 89.5, MCH 29.6, MCHC 33.0, RDW Std Deviation 46.2 H, RDW Coeff of Brittanie 14.3, Plt Count 237, MPV 10.8, Immature Gran % (Auto) 0.500, Neut % (Auto) 81.4 H, Lymph % (Auto) 7.7 L, [place] % (Auto) 8.2, Eos % (Auto) 2.0, Baso % (Auto) 0.2, Absolute Neuts (auto) 7.9 H, Absolute Lymphs (auto) 0.74 L, Nucleated RBC % 0 08/04/20 04:35: Sodium 139, Potassium 4.4, Chloride 108 H, Carbon Dioxide 26.0, Anion Gap 5, BUN 15, Creatinine 0.97, Estim Creat Clear Calc 49.93, Est GFR (MDRD) Af Amer 74, Est GFR (MDRD) Non-Af 61, BUN/Creatinine Ratio 15.5, Glucose 117 H, Calcium 9.0, Total Bilirubin 0.50, AST 32, ALT 51, Alkaline Phosphatase 105, Total Protein 6.5, Albumin 1.7 L, Globulin 4.8 H, Albumin/Globulin Ratio 0.4 L Current Medications Acetaminophen (Acetaminophen 325 Mg Tablet) 650 mg PO Q6H PRN PRN PRN Reason: Pain Score 1-10/Temp > 100.7 F Last Admin: 08/03/20 17:07 Dose: 650 mg Documented by: Hydrocodone Bitart/Acetaminophen (Hydrocodone Bitartrate/Apap 5/325 Tablet) 1 tablet PO Q4H PRN PRN PRN Reason: Pain Score 6-10 Last Admin: 08/04/20 12:41 Dose: 1 tablet Documented by: Albuterol Sulfate (Albuterol Sulfate 8 Gm Inhaler (60 Puffs)) 2 puff INHALATION Q4H PRN PRN PRN Reason: SOB &/OR WHEEZING Buspirone HCl (Buspirone 5 Mg Tablet) 10 mg PO BID [facility] Last Admin: 08/04/20 12:44 Dose: 10 mg Documented by: Dexamethasone (Dexamethasone 2 Mg Tablet) 6 mg PO DAILY [facility] Stop: 08/13/20 10:01 Enoxaparin Sodium (Enoxaparin 80 Mg/0.8 Ml Syringe) 80 mg SC BID [facility] Last Admin: 08/04/20 12:45 Dose: 80 mg Documented by: Gabapentin (Gabapentin 100 Mg Capsule) 200 mg PO TIDCM [facility] Last Admin: 08/04/20 12:42 Dose: 200 mg Documented by: Piperacillin Sod/Tazobactam (Sod 3.375 gm/ Sodium Chloride) 50 mls @ 12.5 mls/hr IV Q8 [facility] Last Admin: 11/18/20 12:58 Dose: 12.5 mls/hr Documented by: Levothyroxine Sodium (Levothyroxine 25 Mcg Tablet) 25 mcg PO DAILY [facility] Last Admin: 08/04/20 12:47 Dose: 25 mcg Documented by: Lidocaine/Diphenhydr/Alum/Mg/Simeth (Bmx Liquid 180 Ml) 5 ml PO Q3H PRN PRN PRN Reason: MOUTH IRRITATION Last Admin: 08/04/20 04:43 Dose: 5 ml Documented by: Loperamide HCl (Loperamide 2 Mg Capsule) 2 mg PO Q4H PRN PRN PRN Reason: DIARRHEA/LOOSE STOOLS Last Admin: 08/02/20 10:18 Dose: 2 mg Documented by: Melatonin (Melatonin 3 Mg Tablet) 3 mg PO QHS PRN PRN PRN Reason: INSOMNIA Last Admin: 07/31/20 21:25 Dose: 3 mg Documented by: Nystatin (Nystatin 500,000 Unit/5 Ml Udc) 500,000 unit PO 4X/DAY [facility] Last Admin: 08/04/20 12:45 Dose: 500,000 unit Documented by: Ondansetron HCl (Ondansetron 4 Mg/2 Ml Vial) 4 mg IV Q6H PRN PRN PRN Reason: NAUSEA/VOMITING Pantoprazole Sodium (Pantoprazole Sodium 40 Mg Tablet) 40 mg PO BID [facility] Last Admin: 08/04/20 12:47 Dose: 40 mg Documented by: Potassium Chloride (Potassium Chloride 20 Meq Tablet) 40 meq PO DAILYCM [facility] Last Admin: 08/04/20 12:46 Dose: 40 meq Documented by: Sodium Chloride (0.9% Saline Lock 10 Ml Syringe) 10 - 40 ml IV UD PRN PRN Reason: SALINE FLUSH Last Admin: 08/04/20 12:58 Dose: 20 ml Documented by: Medical Necessity - Tobacco Use Smoking Status: Former smoker Tobacco Use: Cigarettes Route of nutrition/ use of supplements: [] Nutritional Intake: [] IV Site: [] Gr Catheter: [] - Assessment/Plan Antibiotics: [] Assessment/Plan: [] Active and Suspected Problems (Last Reviewed 07/16/20 @ 23:[address] Richard Gaona MD) COVID-19 (Acute) Hypoxia (Acute) Hypokalemia (Acute) Respiratory insufficiency (Acute) Completed dex, completed remdesivir. Got plasma 07/19. 07/30 felt worse with fever overnight, still high O2 reqs. Started on empiric vanc/zosyn. Cxs neg, CT showed PE, and PCT was less than 0.2. Stopped vanc 08/01, stopped zosyn 08/02. O2 has been steadily worsening over past few days while on abx and off abx. Will get sputum cx, restart dex, will do empiric meropenem since she was just on zosyn. Will follow, d/w Dr. Noe
[2020-08-04] MEDS: dexAMETHasone 2 MG TABLET 6 MG PO (15:51)
[2020-08-04] MEDS: Ondansetron 4 MG/2 ML Vial IV (17:35)
[2020-08-05] VITALS (81 sets, daily range): BP systolic 86–164; BP diastolic 53–84; PULSE 58–97; RESP 12–35; TEMP 36.3–37.2; O2SAT 78–97
[2020-08-05] MEDS: Etomidate 20 MG/10 ML Vial IV (04:21)
[2020-08-05] MEDS: Midazolam 2 MG/2 ML Syringe IV ×2 (04:22)
[2020-08-05] MEDS: Propofol 10MG/Ml 1,000 MG/100 ML Bottle 4.6 MG CONT INF (04:30)
--- NOTE | 2020-08-05 04:30 | RAD_ITS ---
STUDY: X-RAY CHEST REASON FOR EXAM: Female, 64 years old. ET AND OG TUBE PLACEMENTS TECHNIQUE: AP COMPARISON: 08/04/2020. FINDINGS: There is an endotracheal tube with tip 4 cm from the hunter. Gastric tube tracks into the stomach. There are diffuse patchy pulmonary airspace opacities. There is no demonstrated abnormality of the visualized soft tissue structures of the upper abdomen. RAD/Chest 1 View (Portable) IMPRESSION: Interval intubation and gastric tube placement. Persistent patchy bilateral airspace opacities. Electronically Signed: Nik Wakefield, at 5:11 EST Tel , Service support ,
--- NOTE | 2020-08-05 04:33 | PCM.HOSP.N ---
Hospitalist Note Intubation Note: Patient with evidence of respiratory and/or impending distress with maximized settings on BIPAP with ongoing hypoxia. Patient and family amenable to intubation given worsening status. Medications administered: Etomidate 20 mg, Versed 4 mg ETT size: 7.5 Patient intubated in standard fashion with visualization of the vocal cords and passage of the ETT. Positioning verified with auscultation. Post-intubation CXR requested. Will maintain patient on AC, elevated PEEP given current status pending Dr. Noe re-evaluation. Will continue sedation w/ fentanyl and propofol. Procedures: [id number] Insert Emergency Airway
--- NOTE | 2020-08-05 04:38 | NURSING ---
Dr Caraballo at the bedside preparing for intubation. Etomidate given @04:21 Versed given @04:22 ETT placed at 04:25 7.5 23@Lip OG placed at 04:27 X-ray order placed @04:24
[2020-08-05 05:01] LABS: Absolute Lymphocyte Count 0.53 X10^3/uL (0.83-4.51); Absolute Neutrophil Count 7.4 X10^3/uL (2.0-7.7); Basophil# 0.01 X10^3/uL; Basophil% 0.1 % (0-1); Hematocrit 35.7 % (37-47); Hemoglobin 11.6 g/dL (12.0-15.0); Lymphocyte # 0.53 X10^3/ul (4.0); Lymphocyte % 6.5 % (19-41); Mean Corp Hgb Conc 32.5 g/dL (32-36); Mean Corpuscular Hgb 29.6 pg (27.0-32.0); Mean Corpuscular Volume 91.1 fL (81-99); Monocyte# 0.19 X10^3/uL; Monocyte% 2.3 % (0-10); NRBC Flagged by Analyzer 0 % (0-5); Neutrophil # 7.35 X10^3/uL (2.7-7.7); Neutrophil % 90.4 % (47-70); POSITIVE DIFFERENTIAL YES; Platelet Count 264 K/mm3 (150-450); RBC Distribution Width CV 14.5 % (11.6-14.6); RBC Distribution Width SD 47.9 fl (35.1-43.9); Red Blood Count 3.92 M/mm3 (4.2-5.4); White Blood Count 8.1 K/mm3 (4.4-11.0)
[2020-08-05 05:03] LABS: Differential Indicated SCAN CRITERIA MET
[2020-08-05] MEDS: 0.9% Saline Lock 10 ML Syringe IV ×3 (05:11→21:17)
[2020-08-05 05:20] LABS: ALB/GLOB Ratio 0.4 RATIO (0.9-2.4); AST(SGOT) 33 U/L (15-37); Alanine Aminotransfer ALT/SGPT 61 U/L (13-56); Alkaline Phosphatase 170 U/L (45-117); Anion Gap 8 (5-15); BUN 26 mg/dL (7-18); BUN/Creat Ratio 18.7 RATIO (10-20); Calcium,Total 9.7 mg/dL (8.5-10.1); Chloride 107 mmol/L (98-107); Creatinine, Serum 1.39 mg/dL (0.55-1.02); EST Glomerular Filtration Rate 40 mL/min (>60); Est Glom Filt Rate - Afr Amer 49 mL/min (>60); Estimated Creatinine Clearance 34.84 ml/min; Globulin 5.6 g/dL (2.2-4.2); Glucose 148 mg/dL (74-106); Potassium 4.2 mmol/L (3.5-5.1); Protein, Total 7.6 g/dL (6.4-8.2); Sodium Level 140 mmol/L (136-145)
[2020-08-05 05:26] LABS: CPK Total, Creatine Kinase 20 U/L (26-192); Triglycerides 139 mg/dL
[2020-08-05] MEDS: TITRATION PARAMETER CHANGE 1 EACH IV ×2 (05:26→10:01)
[2020-08-05 05:27] LABS: Differential Comment SCANNED
--- NOTE | 2020-08-05 06:10 | PCM.PN.INT ---
Subjective: The patient was seen and examined at the bedside this morning. Events from the last 24 hours have been reviewed. Over the last day, the patient has continued to decompensate from a clinical perspective with ever increasing oxygen requirements. Therefore, yesterday afternoon, the patient was restarted on antimicrobials and Decadron. She continued to remain tenuous from a respiratory perspective and did require intubation early this morning. Following intubation, the patient was placed on assist control mode of mechanical ventilation with suboptimal oxygenation. She was then transitioned to APRV, but remained hypoxemic. I personally met with the patient's family this morning and updated them on her overall clinical state. They have elected to transition her to DNR CCA at this time. Given the patient's suboptimal oxygenation status on APRV, the decision was made to increase her sedation and place her on a continuous Nimbex infusion. She was then transitioned back to assist control mode of mechanical ventilation with ventilator parameters optimized. Once the patient was adequately sedated and paralyzed, her oxygen saturations improved to the 90s. Unfortunately, due to the amount of sedation required, the patient became hypotensive and also had to be started on Levophed to maintain hemodynamic stability. Her creatinine has increased to 1.39 this morning. Objective: The patient's most recent lab work, culture data and imaging studies have all been personally reviewed. Coronavirus PCR was positive on July 14. CTA chest completed on July 30 did reveal small left upper lobe PE. General: - - The patient is now intubated, sedated and mechanically ventilated. Ventilator to synchrony improved with optimization of ventilator parameters and initiation of Nimbex. HEENT: Atraumatic, PERRLA, Normocephalic Oral: No Gingival or Mucosal Lesions/ Ulcerations, - - Endotracheal and OG tubes in place Neck: Supple, No Nodes, Trachea Midline Lungs: Diminished, - - Coarse mechanical breath sounds Cardiovascular: Regular rate, Regular Rhythm Abdomen: Bowel Sounds Present, Soft, Non Tender Extremities: No clubbing, No cyanosis, No edema Skin: No breakdown Musculoskeletal: No Muscle Wasting Lymphatic: No Cervical, Supraclavicular, or Inguinal Adenopathy Neurological: - - No focal deficits. The patient is currently heavily sedated and chemically paralyzed on the ventilator. Vital Signs Temp Pulse Resp BP Pulse Ox 97.8 F 84 35 H 101/66 80 08/05/20 00:00 08/05/20 04:20 08/05/20 04:20 08/05/20 03:00 08/05/20 04:20 Oxygen Flow Rate (L/min) 60 Oxygen Delivery Method Bi-pap Weight: 161 lb 9.581 oz Body Mass Index (BMI) 30.5 Intake and Output for Last 24 Hours 08/03/20 08/04/20 08/05/20 23:59 23:59 23:59 Intake Total 580 / 580 890 / 890 127.82 / 127.82 Output Total 600 / 600 1450 / 1450 100 / 100 Balance -20 / -20 -560 / -560 27.82 / 27.82 Labs (Last 48 Hours) 08/04/20 08/04/20 08/05/20 04:35 04:35 04:15 WBC 9.7 Cancelled Corrected WBC Cancelled RBC 3.62 L Cancelled Hgb 10.7 L Cancelled Hct 32.4 L Cancelled MCV 89.5 Cancelled MCH 29.6 Cancelled MCHC 33.0 Cancelled RDW Std Deviation 46.2 H Cancelled RDW Coeff of Brittanie 14.3 Cancelled Plt Count 237 Cancelled MPV 10.8 Cancelled Immature Gran % (Auto) 0.500 Cancelled Neut % (Auto) 81.4 H Cancelled Lymph % (Auto) 7.7 L Cancelled [place] % (Auto) 8.2 Cancelled Eos % (Auto) 2.0 Cancelled Baso % (Auto) 0.2 Cancelled Absolute Neuts (auto) 7.9 H Cancelled Absolute Lymphs (auto) 0.74 L Cancelled Total Counted Cancelled Neutrophils % (Manual) Cancelled Band Neutrophils % Cancelled Lymphocytes % (Manual) Cancelled Monocytes % (Manual) Cancelled Eosinophils % (Manual) Cancelled Basophils % (Manual) Cancelled Metamyelocytes % Cancelled Myelocytes % Cancelled Promyelocytes % Cancelled Blast Cells % Cancelled Plasma Cell % (Manual) Cancelled Other Cells % Cancelled Nucleated RBC % 0 Cancelled Nucleated RBCs/100 WBC Cancelled Differential Comment Cancelled Diff Path Review Cancelled Hypersegmented Neuts Cancelled Atypical Lymphocytes Cancelled Reactive Lymphocytes Cancelled Smudge Cells Cancelled Toxic Granulation Cancelled Toxic Vacuolation Cancelled Dohle Bodies Cancelled Boyd Rods Cancelled Platelet Estimate Cancelled Plt Morphology Comment Cancelled RBC Morphology Cancelled Polychromasia Cancelled Hypochromasia Cancelled Poikilocytosis Cancelled Basophilic Stippling Cancelled Anisocytosis Cancelled Microcytosis Cancelled Macrocytosis Cancelled Spherocytes Cancelled Sickle Cells Cancelled Target Cells Cancelled Tear Drop Cells Cancelled Ovalocytes Cancelled Stomatocytes Cancelled Nguyen-[place] Bodies Cancelled Cleo Cells Cancelled Bite Cells Cancelled Crenated Cell Cancelled Acanthocytes (Spur) Cancelled Rouleaux Cancelled Schistocytes Cancelled Sodium 139 Potassium 4.4 Chloride 108 H Carbon Dioxide 26.0 Anion Gap 5 BUN 15 Creatinine 0.97 Estim Creat Clear Calc 49.93 Est GFR (MDRD) Af Amer 74 Est GFR (MDRD) Non-Af 61 BUN/Creatinine Ratio 15.5 Glucose 117 H Calcium 9.0 Total Bilirubin 0.50 AST 32 ALT 51 Alkaline Phosphatase 105 Total Creatine Kinase Total Protein 6.5 Albumin 1.7 L Globulin 4.8 H Albumin/Globulin Ratio 0.4 L Triglycerides 08/05/20 08/05/20 08/05/20 04:15 04:55 04:55 WBC 8.1 Corrected WBC RBC 3.92 L Hgb 11.6 L Hct 35.7 L MCV 91.1 MCH 29.6 MCHC 32.5 RDW Std Deviation 47.9 H RDW Coeff of Brittanie 14.5 Plt Count 264 MPV 11.0 Immature Gran % (Auto) 0.700 Neut % (Auto) 90.4 H Lymph % (Auto) 6.5 L [place] % (Auto) 2.3 Eos % (Auto) 0.0 Baso % (Auto) 0.1 Absolute Neuts (auto) 7.4 Absolute Lymphs (auto) 0.53 L Total Counted Neutrophils % (Manual) Band Neutrophils % Lymphocytes % (Manual) Monocytes % (Manual) Eosinophils % (Manual) Basophils % (Manual) Metamyelocytes % Myelocytes % Promyelocytes % Blast Cells % Plasma Cell % (Manual) Other Cells % Nucleated RBC % 0 Nucleated RBCs/100 WBC Differential Comment SCANNED Diff Path Review Hypersegmented Neuts Atypical Lymphocytes Reactive Lymphocytes Smudge Cells Toxic Granulation Toxic Vacuolation Dohle Bodies Boyd Rods Platelet Estimate Plt Morphology Comment RBC Morphology Polychromasia Hypochromasia Poikilocytosis Basophilic Stippling Anisocytosis Microcytosis Macrocytosis Spherocytes Sickle Cells Target Cells Tear Drop Cells Ovalocytes Stomatocytes Nguyen-[place] Bodies Cleo Cells Bite Cells Crenated Cell Acanthocytes (Spur) Rouleaux Schistocytes Sodium Cancelled 140 Potassium Cancelled 4.2 Chloride Cancelled 107 Carbon Dioxide Cancelled 25.0 Anion Gap Cancelled 8 BUN Cancelled 26 H Creatinine Cancelled 1.39 H Estim Creat Clear Calc Cancelled 34.84 Est GFR (MDRD) Af Amer Cancelled 49 L Est GFR (MDRD) Non-Af Cancelled 40 L BUN/Creatinine Ratio Cancelled 18.7 Glucose Cancelled 148 H Calcium Cancelled 9.7 Total Bilirubin Cancelled 0.40 AST Cancelled 33 ALT Cancelled 61 H Alkaline Phosphatase Cancelled 170 H Total Creatine Kinase Total Protein Cancelled 7.6 Albumin Cancelled 2.0 L Globulin Cancelled 5.6 H Albumin/Globulin Ratio Cancelled 0.4 L Triglycerides 08/05/20 04:55 WBC Corrected WBC RBC Hgb Hct MCV MCH MCHC RDW Std Deviation RDW Coeff of Brittanie Plt Count MPV Immature Gran % (Auto) Neut % (Auto) Lymph % (Auto) [place] % (Auto) Eos % (Auto) Baso % (Auto) Absolute Neuts (auto) Absolute Lymphs (auto) Total Counted Neutrophils % (Manual) Band Neutrophils % Lymphocytes % (Manual) Monocytes % (Manual) Eosinophils % (Manual) Basophils % (Manual) Metamyelocytes % Myelocytes % Promyelocytes % Blast Cells % Plasma Cell % (Manual) Other Cells % Nucleated RBC % Nucleated RBCs/100 WBC Differential Comment Diff Path Review Hypersegmented Neuts Atypical Lymphocytes Reactive Lymphocytes Smudge Cells Toxic Granulation Toxic Vacuolation Dohle Bodies Boyd Rods Platelet Estimate Plt Morphology Comment RBC Morphology Polychromasia Hypochromasia Poikilocytosis Basophilic Stippling Anisocytosis Microcytosis Macrocytosis Spherocytes Sickle Cells Target Cells Tear Drop Cells Ovalocytes Stomatocytes Nguyen-[place] Bodies Cleo Cells Bite Cells Crenated Cell Acanthocytes (Spur) Rouleaux Schistocytes Sodium Potassium Chloride Carbon Dioxide Anion Gap BUN Creatinine Estim Creat Clear Calc Est GFR (MDRD) Af Amer Est GFR (MDRD) Non-Af BUN/Creatinine Ratio Glucose Calcium Total Bilirubin AST ALT Alkaline Phosphatase Total Creatine Kinase 20 L Total Protein Albumin Globulin Albumin/Globulin Ratio Triglycerides 139 Microbiology 08/01/20 17:52 Blood Culture (Wb) - Right Hand Blood Culture - Preliminary No growth in 48 hours. 08/01/20 17:45 Blood Culture (Wb) - Arm Right Blood Culture - Preliminary No growth in 48 hours. Clinical Impression(s) from Imaging Studies Chest X-Ray 07/16/20 15:58 IMPRESSION: Normal x-ray examination of the chest. Electronically Signed: Eddie Rivera DO at 16:09 EDT Tel [phone], Service support , Chest X-Ray 07/30/20 13:25 IMPRESSION: New bilateral pulmonary infiltrates worse in the left lower lobe with a peripheral distribution. Follow-up is recommended. Electronically Signed: Jesus Solitario, at 14:00 EST , Service support , Chest CTA 07/30/20 13:37 IMPRESSION: Nonocclusive pulmonary emboli in the upper lobe pulmonary artery. Diffuse increased interstitial markings involving both lungs worse in the lower lobes with areas of confluence. Follow-up is recommended. Electronically Signed: Jesus Solitario, at 14:28 EST , Service support , Chest X-Ray 08/04/20 08:02 IMPRESSION: Since prior study, there has been progressive pulmonary infiltrates worse in the left lung. Electronically Signed: Jesus Solitario, at 10:34 EST , Service support , Chest X-Ray 08/05/20 04:30 IMPRESSION: Interval intubation and gastric tube placement. Persistent patchy bilateral airspace opacities. Electronically Signed: Nik Wakefield, at 5:11 EST Tel , Service support , Medical Necessity - Tobacco Use Smoking Status: Former smoker Tobacco Use: Cigarettes Assessment/Plan All Active Problems (Last Reviewed 07/16/20 @ 23:[address] Richard Gaona MD) COVID-19 (Acute) Hypoxia (Acute) Hypokalemia (Acute) Respiratory insufficiency (Acute) RECOMMENDATIONS: 1. Continue current supportive measures with invasive mechanical ventilatory support. 2. Continue patient on assist control mode of mechanical ventilation and wean FiO2 and PEEP as tolerated. 3. Continue current sedation regimen and chemical paralysis with Nimbex. 4. Obtain arterial blood gas in 1 hour. 5. Okay to start tube feeds. 6. Continue Levophed and wean to maintain a mean arterial pressure at or above 65 mmHg. 7. Continue empiric antimicrobials and Decadron. 8. CODE STATUS updated to DNR CCA per discussions with family. IMPRESSIONS: 1. Acute hypoxemic respiratory failure secondary to COVID-19 pneumonia/pulmonary emboli The patient continues to be quite tenuous from a respiratory perspective with high oxygen requirement. The patient has already completed a treatment course of remdesivir and Decadron. She also received convalescent plasma. CTA chest obtained during this hospitalization did reveal small upper lobe pulmonary emboli. The patient remains on therapeutic Lovenox. Unfortunately, the patient did decompensate from a respiratory perspective and did require intubation. Nevertheless, her respiratory status remains quite tenuous. She will be transition from APRV back to assist control mode of mechanical ventilation with plans to increase sedation and provide chemical paralysis. Will obtain arterial blood gas in 1 hour. 2. Distributive shock The patient did develop hemodynamic instability as a consequence of sedative medication use, requiring vasopressor initiation. Plan to continue Levophed to maintain a mean arterial pressure at or above 65 mmHg. 3. Acute kidney injury Suspect likely secondary to ischemic ATN in the setting of #1 and 2. Plan to continue current supportive measures, including vasopressor support to maintain hemodynamic stability. Continue to monitor urine output. No current indication for renal replacement therapy. 4. Advanced age/anxiety/hypothyroidism/hypertension/GERD Complicates care, management, recovery and prognosis. Continue current supportive measures. CODE status: Discussed CODE status at length including difference between FULL code, DNR-CCA and DNR-CC status. Following discussions about the differences in these status, patient's family requested DNR CCA CODE STATUS. TIME: 80 minutes of critical care time, independent of procedures, was spent addressing the patient's acute hypoxemic respiratory failure, COVID-19 pneumonia, pulmonary emboli, acute kidney injury, distributive shock, review of all data and collaboration with the care team. ([id number]) Procedures: 48073 Critial Care Addl 30 Min 9xxxx: [id number] Critical care first hour
--- NOTE | 2020-08-05 07:22 | PCM.PN.HOSP ---
Patient Problems: Active and Suspected Problems (Last Reviewed 07/16/20 @ 23:[address] Richard Gaona MD) COVID-19 (Acute) Hypoxia (Acute) Hypokalemia (Acute) Respiratory insufficiency (Acute) Reason for Visit: Acute hypoxic respiratory failure secondary to COVID-19 pneumonia Subjective: Patient is a 64-year-old lady who has been on admission for total of 17 days admitted with acute hypoxic respiratory failure secondary to COVID-19 pneumonia 08/04/2020: Patient patient seen still remains extremely anxious. Patient desaturated resulting in patient having to be placed back on BiPAP 08/05/2020: Patient condition deteriorated with worsening hypoxia with did not respond to noninvasive ventilation resulting in patient having to be intubated and placed on the vent and paralytics. Objective: GENERAL: Sedated on the vent HEENT: Atraumatic; EYES; Anicteric, Normal Conjunctiva NECK; supple, normal thyroid, RESPIRATORY: Diminished to auscultation CARDIOVASCULAR: Regular S1 S2, GI: soft, normoactive bowel sounds, : No Renal angle tenderness; EXTREMITIES: No edema, no clubbing, MUSCULOSKELETAL: no muscle waisting NEURO: Sedated on the vent SKIN: No Rash Vitals/I&O's: Vital Signs Temp Pulse Resp BP Pulse Ox 97.8 F 83 22 H 113/76 84 08/05/20 00:00 08/05/20 06:00 08/05/20 06:00 08/05/20 06:00 08/05/20 06:00 Oxygen Flow Rate (L/min) 60 Oxygen Delivery Method Mechanical Ventilator Weight: 73.3 kg Body Mass Index (BMI) 30.5 Intake and Output for Last 24 Hours 08/03/20 08/04/20 08/05/20 23:59 23:59 23:59 Intake Total 580 / 580 890 / 890 200.49 / 200.49 Output Total 600 / 600 1450 / 1450 100 / 100 Balance -20 / -20 -560 / -560 100.49 / 100.49 Microbiology Past 72 Hours 08/01/20 17:52 Blood Culture (Wb) - Right Hand Blood Culture - Preliminary No growth in 48 hours. 08/01/20 17:45 Blood Culture (Wb) - Arm Right Blood Culture - Preliminary No growth in 48 hours. 07/30/20 17:07 Blood Culture (Wb) - Anticubital Right Blood Culture - Preliminary No growth in 48 hours. 07/30/20 17:15 Blood Culture (Wb) - Right Hand Blood Culture - Preliminary No growth in 48 hours. Laboratory Results 08/05/20 04:15: WBC Cancelled, Corrected WBC Cancelled, RBC Cancelled, Hgb Cancelled, Hct Cancelled, MCV Cancelled, MCH Cancelled, MCHC Cancelled, RDW Std Deviation Cancelled, RDW Coeff of Brittanie Cancelled, Plt Count Cancelled, MPV Cancelled, Immature Gran % (Auto) Cancelled, Neut % (Auto) Cancelled, Lymph % (Auto) Cancelled, [place] % (Auto) Cancelled, Eos % (Auto) Cancelled, Baso % (Auto) Cancelled, Absolute Neuts (auto) Cancelled, Absolute Lymphs (auto) Cancelled, Total Counted Cancelled, Neutrophils % (Manual) Cancelled, Band Neutrophils % Cancelled, Lymphocytes % (Manual) Cancelled, Monocytes % (Manual) Cancelled, Eosinophils % (Manual) Cancelled, Basophils % (Manual) Cancelled, Metamyelocytes % Cancelled, Myelocytes % Cancelled, Promyelocytes % Cancelled, Blast Cells % Cancelled, Plasma Cell % (Manual) Cancelled, Other Cells % Cancelled, Nucleated RBC % Cancelled, Nucleated RBCs/100 WBC Cancelled, Differential Comment Cancelled, Diff Path Review Cancelled, Hypersegmented Neuts Cancelled, Atypical Lymphocytes Cancelled, Reactive Lymphocytes Cancelled, Smudge Cells Cancelled, Toxic Granulation Cancelled, Toxic Vacuolation Cancelled, Dohle Bodies Cancelled, Boyd Rods Cancelled, Platelet Estimate Cancelled, Plt Morphology Comment Cancelled, RBC Morphology Cancelled, Polychromasia Cancelled, Hypochromasia Cancelled, Poikilocytosis Cancelled, Basophilic Stippling Cancelled, Anisocytosis Cancelled, Microcytosis Cancelled, Macrocytosis Cancelled, Spherocytes Cancelled, Sickle Cells Cancelled, Target Cells Cancelled, Tear Drop Cells Cancelled, Ovalocytes Cancelled, Stomatocytes Cancelled, Nguyen-[place] Bodies Cancelled, Cleo Cells Cancelled, Bite Cells Cancelled, Crenated Cell Cancelled, Acanthocytes (Spur) Cancelled, Rouleaux Cancelled, Schistocytes Cancelled 08/05/20 04:15: Sodium Cancelled, Potassium Cancelled, Chloride Cancelled, Carbon Dioxide Cancelled, Anion Gap Cancelled, BUN Cancelled, Creatinine Cancelled, Estim Creat Clear Calc Cancelled, Est GFR (MDRD) Af Amer Cancelled, Est GFR (MDRD) Non-Af Cancelled, BUN/Creatinine Ratio Cancelled, Glucose Cancelled, Calcium Cancelled, Total Bilirubin Cancelled, AST Cancelled, ALT Cancelled, Alkaline Phosphatase Cancelled, Total Protein Cancelled, Albumin Cancelled, Globulin Cancelled, Albumin/Globulin Ratio Cancelled 08/05/20 04:55: Sodium 140, Potassium 4.2, Chloride 107, Carbon Dioxide 25.0, Anion Gap 8, BUN 26 H, Creatinine 1.39 H, Estim Creat Clear Calc 34.84, Est GFR (MDRD) Af Amer 49 L, Est GFR (MDRD) Non-Af 40 L, BUN/Creatinine Ratio 18.7, Glucose 148 H, Calcium 9.7, Total Bilirubin 0.40, AST 33, ALT 61 H, Alkaline Phosphatase 170 H, Total Protein 7.6, Albumin 2.0 L, Globulin 5.6 H, Albumin/Globulin Ratio 0.4 L 08/05/20 04:55: WBC 8.1, RBC 3.92 L, Hgb 11.6 L, Hct 35.7 L, MCV 91.1, MCH 29.6, MCHC 32.5, RDW Std Deviation 47.9 H, RDW Coeff of Brittanie 14.5, Plt Count 264, MPV 11.0, Immature Gran % (Auto) 0.700, Neut % (Auto) 90.4 H, Lymph % (Auto) 6.5 L, [place] % (Auto) 2.3, Eos % (Auto) 0.0, Baso % (Auto) 0.1, Absolute Neuts (auto) 7.4, Absolute Lymphs (auto) 0.53 L, Nucleated RBC % 0, Differential Comment SCANNED 08/05/20 04:55: Total Creatine Kinase 20 L, Triglycerides 139 Current Medications Acetaminophen (Acetaminophen 325 Mg Tablet) 650 mg PO Q6H PRN PRN PRN Reason: Pain Score 1-10/Temp > 100.7 F Last Admin: 08/03/20 17:07 Dose: 650 mg Documented by: Albuterol Sulfate (Albuterol 2.5 Mg/3 Ml Vial.Neb.) 2.5 mg INHALATION Q2H PRN PRN PRN Reason: Dyspnea, wheezing Chlorhexidine Gluconate (Chlorhexidine 15 Ml) 15 ml PO BID [facility] Dexamethasone (Dexamethasone 2 Mg Tablet) 6 mg PO DAILY [facility] Stop: 08/13/20 10:01 Last Admin: 08/04/20 15:51 Dose: 6 mg Documented by: Enoxaparin Sodium (Enoxaparin 80 Mg/0.8 Ml Syringe) 80 mg SC BID [facility] Last Admin: 08/04/20 19:42 Dose: 80 mg Documented by: Meropenem 1 gm/ Sodium (Chloride) 120 mls @ 33 mls/hr IV Q8 [facility] Last Infusion: 08/05/20 07:05 Dose: 0 mls/hr Documented by: Fentanyl Citrate 1,000 mcg/ (Sodium Chloride) 100 mls @ 5 mls/hr CONT INF .Q20H [facility]; Protocol Last Titration: 08/05/20 06:30 Dose: 150 mcg/hr, 15 mls/hr Documented by: Propofol (Diprivan) 1,000 mg in 100 mls @ 4.398 mls/hr CONT INF .Q12H [facility]; Protocol Last Titration: 08/05/20 06:45 Dose: 25 mcg/kg/min, 11 mls/hr Documented by: Famotidine 20 mg/ Sodium (Chloride) 10 mls @ 300 mls/hr IV Q12 [facility] Norepinephrine Bitartrate 8 mg (/ Sodium Chloride) 250 mls @ 9.375 mls/hr CONT INF .[id number] [facility]; Protocol Cisatracurium Besylate 100 mg/ (Sodium Chloride) 250 mls @ 21.99 mls/hr CONT INF .[id number] [facility]; Protocol Last Admin: 08/05/20 07:09 Dose: 2 mcg/kg/min, 22 mls/hr Documented by: Levothyroxine Sodium (Levothyroxine 25 Mcg Tablet) 25 mcg PO DAILY [facility] Last Admin: 08/04/20 12:47 Dose: 25 mcg Documented by: Nystatin (Nystatin 500,000 Unit/5 Ml Udc) 500,000 unit PO 4X/DAY [facility] Last Admin: 08/04/20 23:33 Dose: 500,000 unit Documented by: Ondansetron HCl (Ondansetron 4 Mg/2 Ml Vial) 4 mg IV Q6H PRN PRN PRN Reason: NAUSEA/VOMITING Last Admin: 08/04/20 17:35 Dose: 4 mg Documented by: Sodium Chloride (0.9% Saline Lock 10 Ml Syringe) 10 - 40 ml IV UD PRN PRN Reason: SALINE FLUSH Last Admin: 08/05/20 05:11 Dose: 40 ml Documented by: STROKE Vital Signs/Narrative: Vital Signs Pulse Resp BP Pulse Ox 08/05/20 06:00 83 22 H 113/76 84 08/05/20 05:00 88 27 H 113/84 H 82 08/05/20 04:46 87 24 H 89/62 L 78 08/05/20 04:30 97 24 H 164/81 H 84 08/05/20 04:22 91 19 H 116/71 80 08/05/20 04:20 84 35 H 80 08/05/20 04:04 81 27 H 83 08/05/20 04:00 79 30 H 121/69 H 83 08/05/20 03:40 63 Medical Necessity - Tobacco Use Smoking Status: Former smoker Tobacco Use: Cigarettes Assessment/Plan All Active Problems (Last Reviewed 07/16/20 @ 23:[address] Rihcard Gaona MD) COVID-19 (Acute) Hypoxia (Acute) Hypokalemia (Acute) Respiratory insufficiency (Acute) Patient is a 64-year-old lady who has been on admission for total of 17 days admitted with acute hypoxic respiratory failure secondary to COVID-19 pneumonia 1. Acute hypoxic respiratory failure secondary to acute COVID-19 infection/pneumonia Patient was transferred to the intensive care unit placed on noninvasive ventilation BiPAP with FiO2 of 90% which has since been weaned down to Airvo -Patient has already completed therapy with remdesivir and Decadron. On therapeutic Lovenox ?08/03/2020: Patient patient seen still remains extremely anxious. Patient desaturated resulting in patient having to be placed back on BiPAP -08/05/2020: Patient condition deteriorated with worsening hypoxia with did not respond to noninvasive ventilation resulting in patient having to be intubated and placed on the vent and paralytics. 2. Acute pulmonary embolism (hypercoagulable state secondary to COVID-19) ?Secondary to COVID-19 infection patient is on therapeutic Lovenox 3. Acute viral gastroenteritis ?Secondary to COVID-19 infection treated symptomatically 4. Acute kidney injury ?Superimposed on chronic kidney disease stage III managed with IV fluid; resolved -Patient creatinine bumped up from 0.97 on 08/04/2022 1.39 on 08/05/2020. 5. Hypothyroidism - Patient is on levothyroxine home dose continued 6. Hypokalemia ?Corrected per protocol 7. Hypomagnesemia ?Corrected per protocol 7. Essential hypertension ?Patient antihypertensives on hold 8. Physical deconditioning - Requested for PT OT eval and medical social consultant to assist with discharge planning Inpatient E&M: [id number] [facility] Hosp L3
--- NOTE | 2020-08-05 08:01 | NURSING ---
07 Dr. Noe present in pt room, per order fentanyl increased to 200mcq/hr, propofol increased to 35mc/kg/min, nimbex started at 2mcq/kg/min 719 nimbex increased to 3mcq/kg/min, Dr Noe remains present 724 levophed started per order
[2020-08-05 09:16] LABS: Allen Test Positive; Base Excess 1 mmol/L (-2 to +2); Bicarbonate 27.9 mmol/L (22-26); Blood Gas Specimen Type ART; FI02 100; Mode AC; O2 Delivery Device Adult Vent; PEEP 15; PO2 64 mmHG (75-100); RR 16; SITE L Radial; SO2 88 % (95-99); Total Carbon Dioxide 30 mmol/L; Vt 400; pCO2 60.1 mmHg (35-45); pH 7.27 (7.35-7.45)
[2020-08-05] MEDS: Propofol 10MG/Ml 1,000 MG/100 ML Bottle 15.4 MG CONT INF ×4 (09:33→20:55)
[2020-08-05] MEDS: Chlorhexidine 15 ML PO ×2 (10:03→21:04)
[2020-08-05 10:13] LABS: International Normalized Ratio 1.3; Prothrombin Time (Protime)PT. 15.6 SECONDS (11.7-14.9)
--- NOTE | 2020-08-05 11:10 | PN.ID_ITS ---
Patient Problems: Active and Suspected Problems (Last Reviewed 07/16/20 @ 23:[address] Richard Gaona MD) COVID-19 (Acute) Hypoxia (Acute) Hypokalemia (Acute) Respiratory insufficiency (Acute) Subjective: On vent, paralyzed - Physical Exam Vitals/I&O's: Vital Signs Temp Pulse Resp BP Pulse Ox 97.9 F 72 16 103/57 L 90 08/05/20 09:45 08/05/20 09:46 08/05/20 09:46 08/05/20 10:00 08/05/20 09:46 Oxygen Flow Rate (L/min) 60 Oxygen Delivery Method Mechanical Ventilator Weight: 73.3 kg Body Mass Index (BMI) 30.5 Intake and Output for Last 24 Hours 08/03/20 08/04/20 08/05/20 23:59 23:59 23:59 Intake Total 580 / 580 890 / 890 459.51 / 459.51 Output Total 600 / 600 1450 / 1450 225 / 225 Balance -20 / -20 -560 / -560 234.51 / 234.51 General: Non-Cooperative Lungs: Diminished Cardiovascular: Regular rate, Regular Rhythm Abdomen: Soft, Non Tender, Non-Distended Skin: No rashes Microbiology Past 72 Hours 07/30/20 17:07 Blood Culture (Wb) - Anticubital Right Blood Culture - Final No growth in 5 days. 07/30/20 17:15 Blood Culture (Wb) - Right Hand Blood Culture - Final No growth in 5 days. 08/01/20 17:52 Blood Culture (Wb) - Right Hand Blood Culture - Preliminary No growth in 48 hours. 08/01/20 17:45 Blood Culture (Wb) - Arm Right Blood Culture - Preliminary No growth in 48 hours. Laboratory Results 08/05/20 04:15: WBC Cancelled, Corrected WBC Cancelled, RBC Cancelled, Hgb Cancelled, Hct Cancelled, MCV Cancelled, MCH Cancelled, MCHC Cancelled, RDW Std Deviation Cancelled, RDW Coeff of Brittanie Cancelled, Plt Count Cancelled, MPV Cancelled, Immature Gran % (Auto) Cancelled, Neut % (Auto) Cancelled, Lymph % (Auto) Cancelled, [place] % (Auto) Cancelled, Eos % (Auto) Cancelled, Baso % (Auto) Cancelled, Absolute Neuts (auto) Cancelled, Absolute Lymphs (auto) Cancelled, Total Counted Cancelled, Neutrophils % (Manual) Cancelled, Band Neutrophils % Cancelled, Lymphocytes % (Manual) Cancelled, Monocytes % (Manual) Cancelled, Eosinophils % (Manual) Cancelled, Basophils % (Manual) Cancelled, Metamyelocytes % Cancelled, Myelocytes % Cancelled, Promyelocytes % Cancelled, Blast Cells % Cancelled, Plasma Cell % (Manual) Cancelled, Other Cells % Cancelled, Nucleated RBC % Cancelled, Nucleated RBCs/100 WBC Cancelled, Differential Comment Cancelled, Diff Path Review Cancelled, Hypersegmented Neuts Cancelled, Atypical Lymphocytes Cancelled, Reactive Lymphocytes Cancelled, Smudge Cells Cancelled, Toxic Granulation Cancelled, Toxic Vacuolation Cancelled, Dohle Bodies Cancelled, Boyd Rods Cancelled, Platelet Estimate Cancelled, Plt Morphology Comment Cancelled, RBC Morphology Cancelled, Polychromasia Cancelled, Hypochromasia Cancelled, Poikilocytosis Cancelled, Basophilic Stippling Cancelled, Anisocytosis Cancelled, Microcytosis Cancelled, Macrocytosis Cancelled, Spherocytes Cancelled, Sickle Cells Cancelled, Target Cells Cancelled, Tear Drop Cells Cancelled, Ovalocytes Cancelled, Stomatocytes Cancelled, Nguyen-Leoma Bodies Cancelled, [place] Cells Cancelled, Bite Cells Cancelled, Crenated Cell Cancelled, Acanthocytes (Spur) Cancelled, Rouleaux Cancelled, Schistocytes Cancelled 08/05/20 04:15: Sodium Cancelled, Potassium Cancelled, Chloride Cancelled, Carbon Dioxide Cancelled, Anion Gap Cancelled, BUN Cancelled, Creatinine Cancelled, Estim Creat Clear Calc Cancelled, Est GFR (MDRD) Af Amer Cancelled, Est GFR (MDRD) Non-Af Cancelled, BUN/Creatinine Ratio Cancelled, Glucose Cancelled, Calcium Cancelled, Total Bilirubin Cancelled, AST Cancelled, ALT Cancelled, Alkaline Phosphatase Cancelled, Total Protein Cancelled, Albumin Cancelled, Globulin Cancelled, Albumin/Globulin Ratio Cancelled 08/05/20 04:55: Sodium 140, Potassium 4.2, Chloride 107, Carbon Dioxide 25.0, Anion Gap 8, BUN 26 H, Creatinine 1.39 H, Estim Creat Clear Calc 34.84, Est GFR (MDRD) Af Amer 49 L, Est GFR (MDRD) Non-Af 40 L, BUN/Creatinine Ratio 18.7, Glucose 148 H, Calcium 9.7, Total Bilirubin 0.40, AST 33, ALT 61 H, Alkaline Phosphatase 170 H, Total Protein 7.6, Albumin 2.0 L, Globulin 5.6 H, Albumin/Globulin Ratio 0.4 L 08/05/20 04:55: WBC 8.1, RBC 3.92 L, Hgb 11.6 L, Hct 35.7 L, MCV 91.1, MCH 29.6, MCHC 32.5, RDW Std Deviation 47.9 H, RDW Coeff of Brittanie 14.5, Plt Count 264, MPV 11.0, Immature Gran % (Auto) 0.700, Neut % (Auto) 90.4 H, Lymph % (Auto) 6.5 L, [place] % (Auto) 2.3, Eos % (Auto) 0.0, Baso % (Auto) 0.1, Absolute Neuts (auto) 7.4, Absolute Lymphs (auto) 0.53 L, Nucleated RBC % 0, Differential Comment SCANNED 08/05/20 04:55: Total Creatine Kinase 20 L, Triglycerides 139 08/05/20 09:12: Specimen Type ART, Sample Site L Radial, pH 7.27 L, Bicarbonate Actual 27.9 H, Total CO2 30, Base Excess 1, O2 Saturation 88 L, O2 % 100, ABG pCO2 60.1 H, ABG pO2 64 L, Kwan Test Positive, Respiration Rate 16, O2 Delivery Device Adult Vent, Vent Mode AC, Tidal Volume 400, POC PEEP 15 08/05/20 10:00: PT 15.6 H, INR 1.3 Current Medications Acetaminophen (Acetaminophen 325 Mg Tablet) 650 mg PO Q6H PRN PRN PRN Reason: Pain Score 1-10/Temp > 100.7 F Last Admin: 08/03/20 17:07 Dose: 650 mg Documented by: Albuterol Sulfate (Albuterol 2.5 Mg/3 Ml Vial.Neb.) 2.5 mg INHALATION Q2H PRN PRN PRN Reason: Dyspnea, wheezing Chlorhexidine Gluconate (Chlorhexidine 15 Ml) 15 ml PO BID DIAZ Last Admin: 08/05/20 10:03 Dose: 15 ml Documented by: Dexamethasone (Dexamethasone 2 Mg Tablet) 6 mg PO DAILY [facility] Stop: 08/13/20 10:01 Last Admin: 08/04/20 15:51 Dose: 6 mg Documented by: Enoxaparin Sodium (Enoxaparin 80 Mg/0.8 Ml Syringe) 80 mg SC BID [facility] Last Admin: 08/04/20 19:42 Dose: 80 mg Documented by: Meropenem 1 gm/ Sodium (Chloride) 120 mls @ 33 mls/hr IV Q8 [facility] Last Infusion: 08/05/20 07:05 Dose: 0 mls/hr Documented by: Fentanyl Citrate 1,000 mcg/ (Sodium Chloride) 100 mls @ 20 mls/hr CONT INF .Q5H [facility]; Protocol Last Titration: 08/05/20 10:00 Dose: 200 mcg/hr, 20 mls/hr Documented by: Propofol (Diprivan) 1,000 mg in 100 mls @ 15.393 mls/hr CONT INF .Q6H30M [facility]; Protocol Last Titration: 08/05/20 10:00 Dose: 35 mcg/kg/min, 15.4 mls/hr Documented by: Famotidine 20 mg/ Sodium (Chloride) 10 mls @ 300 mls/hr IV Q12 [facility] Norepinephrine Bitartrate 8 mg (/ Sodium Chloride) 250 mls @ 9.375 mls/hr CONT INF .[id number] [facility]; Protocol Last Titration: 08/05/20 10:00 Dose: 5 mcg/min, 9.4 mls/hr Documented by: Cisatracurium Besylate 100 mg/ (Sodium Chloride) 250 mls @ 21.99 mls/hr CONT INF .[id number] [facility]; Protocol Last Titration: 08/05/20 10:00 Dose: 4 mcg/kg/min, 44 mls/hr Documented by: Levothyroxine Sodium (Levothyroxine 25 Mcg Tablet) 25 mcg PO DAILY [facility] Last Admin: 08/04/20 12:47 Dose: 25 mcg Documented by: Nystatin (Nystatin 500,000 Unit/5 Ml Udc) 500,000 unit PO 4X/DAY [facility] Last Admin: 08/04/20 23:33 Dose: 500,000 unit Documented by: Ondansetron HCl (Ondansetron 4 Mg/2 Ml Vial) 4 mg IV Q6H PRN PRN PRN Reason: NAUSEA/VOMITING Last Admin: 08/04/20 17:35 Dose: 4 mg Documented by: Sodium Chloride (0.9% Saline Lock 10 Ml Syringe) 10 - 40 ml IV UD PRN PRN Reason: SALINE FLUSH Last Admin: 08/05/20 05:11 Dose: 40 ml Documented by: Medical Necessity - Tobacco Use Smoking Status: Former smoker Tobacco Use: Cigarettes Route of nutrition/ use of supplements: [] Nutritional Intake: [] IV Site: [] Gr Catheter: [] - Assessment/Plan Antibiotics: [] Assessment/Plan: [] Active and Suspected Problems (Last Reviewed 07/16/20 @ 23:[address] Richard Gaona MD) COVID-19 (Acute) Hypoxia (Acute) Hypokalemia (Acute) Respiratory insufficiency (Acute) On dex, completed remdesivir. Got plasma 07/19. 07/30 felt worse with fever overnight, still high O2 reqs. Started on empiric vanc/zosyn. Cxs neg, CT showed PE, and PCT was less than 0.2. Stopped vanc 08/01, stopped zosyn 08/02. Now on vent, empiric gisella started 08/04, paralyzed, pressor. Will follow, d/w Dr. Noe
--- NOTE | 2020-08-05 12:15 | NURSING ---
1215 [place] HICKS present in pt room, set up for line placement 1220 HR 73 R 16 BP 107/70 SpO2 97 1225 HR 68 R 16 BP 108/62 SpO2 95 1230 HR 67 R 16 BP 110/64 SpO2 94 begin placement, Dr. Noe present in pt room, cont POC. update given 1235 HR 66 R 16 BP 113/60 SpO2 94 RIJ TL placed
--- NOTE | 2020-08-05 12:35 | RAD_ITS ---
STUDY: X-RAY CHEST REASON FOR EXAM: Female, 64 years old. Right IJ TL placement TECHNIQUE: Right internal jugular venous catheter placement. COMPARISON: Comparison is made with prior study dated 08/05/2020 at 4:30 AM. FINDINGS: A right-sided internal jugular venous catheter has been placed. The tip is at the junction of the superior vena cava and right atrium. An endotracheal tube is in situ with the tip at 3.1 cm proximal to the hunter. An orogastric tube is seen with the tip below the left hemidiaphragm. Stable bilateral infiltrates worse in the lower lobe. There is no demonstrated pleural abnormality. Normal size heart. Normal mediastinum and trell. Normal visualized pulmonary arteries. Normal visualized aortic arch and descending thoracic aorta. Normal visualized thoracic spine. Normal visualized ribs, clavicles, and shoulders. There is no demonstrated abnormality of the visualized soft tissue structures of the upper abdomen. RAD/CXR for Line Placement IMPRESSION: A right-sided internal jugular venous catheter has been placed. The tip is at the junction of the superior vena cava and right atrium. The remainder of the examination is unchanged. Electronically Signed: Jesus Solitario, at 12:56 EST , Service support ,
--- NOTE | 2020-08-05 12:49 | PCM.OPRPT ---
Report of Operation Date of Procedure: 08/05/20 Surgery/Procedure Performed:: Triple-lumen catheter insertion Description of Surgical Findings:: Central line placement procedure note Indication: IV access/hemodynamic instability/vasoactive medications Procedure: A time-out was completed to verify correct patient, indication, medication allergies, procedure, coagulation studies, informed consent signed, and equipment needed. The patient was placed in the supine position for a central line placement to the rt IJ vein. The patients rt neck was prepped using chlorhexidine and a full body sterile drape was applied. 1% lidocaine was used to anesthetize the surrounding skin. A 7fr 16 cm blue guard triple lumen catheter introduced into the internal jugular vein using the modified Seldinger technique with the assistance of ultrasound. The catheter was threaded smoothly over the guidewire, the guidewire was removed easily, nonpulsatile blood returned. All ports were aspirated of air and flushed with sterile saline. The catheter was sutured in place and covered with an occlusive dressing impregnated with chlorhexidine. Post-procedure: The patient tolerated the procedure well. Vital signs remained stable. EBL 3 cc. No complications. Chest X Ray ordered to confirm tip placement and the absence of pneumothorax. Procedures: [id number] Insert Non-tunnel CV Cath
[2020-08-05] MEDS: Famotidine 200 MG/20 ML MDV 20 MG in 0.9% Normal Saline (Pres. free 8 ML 300 MG IV ×2 (15:24→21:05)
[2020-08-05] MEDS: dexAMETHasone 2 MG TABLET 6 MG GT (15:26)
[2020-08-05] MEDS: Enoxaparin 80 MG/0.8 ML Syringe SC ×2 (15:26→21:04)
[2020-08-05] MEDS: NYSTATIN 500,000 UNIT/5 ML UDC 500000 UNIT PO ×3 (15:26→21:04)
[2020-08-05] MEDS: Levothyroxine 25 MCG TABLET GT (15:27)
[2020-08-05] MEDS: Glycerin/Hypromellose/PEG400 15 ml Bottle 1 DRP EACH EYE (23:17)
[2020-08-06] VITALS (45 sets, daily range): BP systolic 96–118; BP diastolic 51–69; PULSE 16–74; RESP 16; TEMP 12.2–37.4; O2SAT 55–99; BMI 28.9
[2020-08-06] MEDS: TITRATION PARAMETER CHANGE 1 EACH IV ×2 (01:36→03:13)
[2020-08-06] MEDS: Propofol 10MG/Ml 1,000 MG/100 ML Bottle 15.4 MG CONT INF (02:15)
--- NOTE | 2020-08-06 06:06 | PN_ITS ---
Subjective: The patient was seen and examined at the bedside this morning. Events from the last 24 hours have been reviewed. The patient is currently afebrile, hemodynamically stable and maintaining appropriate oxygen saturations on assist control mode of mechanical ventilation with an FiO2 requirement of 60% and PEEP of 15. Her oxygenation status has improved over the last 24 hours. However, she remains heavily sedated and pharmacologically paralyzed. The patient has been continued on therapeutic Lovenox, Decadron and broad-spectrum antimicrobials as well. She is currently documented to be overall net +15.6 L for the hospital admission. She remains on low-dose Levophed to maintain hemodynamic stability. Objective: The patient's most recent lab work, culture data and imaging studies have all been personally reviewed. Coronavirus PCR was positive on July 14. CTA chest completed on July 30 did reveal small left upper lobe PE. General: - - Intubated, sedated and mechanically ventilated. HEENT: Atraumatic, Normocephalic Oral: No Gingival or Mucosal Lesions/ Ulcerations, - - Endotracheal and OG tubes remain in place. Neck: Supple, No Nodes, Trachea Midline, - - Stable central venous catheter. Lungs: Diminished Cardiovascular: Normal S1, Normal S2, No murmurs, Bradycardic Abdomen: Bowel Sounds Present, Soft, Non Tender Extremities: No clubbing, No cyanosis, No edema Skin: No breakdown Musculoskeletal: No Tenderness to Palpation of Joints or Extremities Lymphatic: No Cervical, Supraclavicular, or Inguinal Adenopathy Neurological: - - Unable to assess neurological status as the patient is currently sedated and pharmacologically paralyzed. Vital Signs Temp Pulse Resp BP Pulse Ox 98.6 F 55 L 16 113/62 93 08/06/20 03:00 08/06/20 05:00 08/06/20 05:00 08/06/20 05:00 08/06/20 05:00 Oxygen Flow Rate (L/min) 60 Oxygen Delivery Method Mechanical Ventilator Weight: 168 lb 10.458 oz Body Mass Index (BMI) 30.5 Intake and Output for Last 24 Hours 08/04/20 08/05/20 08/06/20 23:59 23:59 23:59 Intake Total 890 / 890 2057.96 / 2135.76 532.86 / 532.86 Output Total 1450 / 1450 875 / 875 270 / 270 Balance -560 / -560 1182.96 / 1260.76 262.86 / 262.86 Labs (Last 48 Hours) 08/05/20 08/05/20 08/05/20 04:15 04:15 04:55 WBC Cancelled Corrected WBC Cancelled RBC Cancelled Hgb Cancelled Hct Cancelled MCV Cancelled MCH Cancelled MCHC Cancelled RDW Std Deviation Cancelled RDW Coeff of Brittanie Cancelled Plt Count Cancelled MPV Cancelled Immature Gran % (Auto) Cancelled Neut % (Auto) Cancelled Lymph % (Auto) Cancelled Brewster % (Auto) Cancelled Eos % (Auto) Cancelled Baso % (Auto) Cancelled Absolute Neuts (auto) Cancelled Absolute Lymphs (auto) Cancelled Total Counted Cancelled Neutrophils % (Manual) Cancelled Band Neutrophils % Cancelled Lymphocytes % (Manual) Cancelled Monocytes % (Manual) Cancelled Eosinophils % (Manual) Cancelled Basophils % (Manual) Cancelled Metamyelocytes % Cancelled Myelocytes % Cancelled Promyelocytes % Cancelled Blast Cells % Cancelled Plasma Cell % (Manual) Cancelled Other Cells % Cancelled Nucleated RBC % Cancelled Nucleated RBCs/100 WBC Cancelled Differential Comment Cancelled Diff Path Review Cancelled Hypersegmented Neuts Cancelled Atypical Lymphocytes Cancelled Reactive Lymphocytes Cancelled Smudge Cells Cancelled Toxic Granulation Cancelled Toxic Vacuolation Cancelled Dohle Bodies Cancelled Boyd Rods Cancelled Platelet Estimate Cancelled Plt Morphology Comment Cancelled RBC Morphology Cancelled Polychromasia Cancelled Hypochromasia Cancelled Poikilocytosis Cancelled Basophilic Stippling Cancelled Anisocytosis Cancelled Microcytosis Cancelled Macrocytosis Cancelled Spherocytes Cancelled Sickle Cells Cancelled Target Cells Cancelled Tear Drop Cells Cancelled Ovalocytes Cancelled Stomatocytes Cancelled [place] Bodies Cancelled Cleo Cells Cancelled Bite Cells Cancelled Crenated Cell Cancelled Acanthocytes (Spur) Cancelled Rouleaux Cancelled Schistocytes Cancelled PT INR Specimen Type Sample Site pH Bicarbonate Actual Total CO2 Base Excess O2 Saturation O2 % ABG pCO2 ABG pO2 Kwan Test Respiration Rate O2 Delivery Device Vent Mode Tidal Volume POC PEEP Sodium Cancelled 140 Potassium Cancelled 4.2 Chloride Cancelled 107 Carbon Dioxide Cancelled 25.0 Anion Gap Cancelled 8 BUN Cancelled 26 H Creatinine Cancelled 1.39 H Estim Creat Clear Calc Cancelled 34.84 Est GFR (MDRD) Af Amer Cancelled 49 L Est GFR (MDRD) Non-Af Cancelled 40 L BUN/Creatinine Ratio Cancelled 18.7 Glucose Cancelled 148 H Calcium Cancelled 9.7 Total Bilirubin Cancelled 0.40 AST Cancelled 33 ALT Cancelled 61 H Alkaline Phosphatase Cancelled 170 H Total Creatine Kinase Total Protein Cancelled 7.6 Albumin Cancelled 2.0 L Globulin Cancelled 5.6 H Albumin/Globulin Ratio Cancelled 0.4 L Triglycerides 08/05/20 08/05/20 08/05/20 04:55 04:55 09:12 WBC 8.1 Corrected WBC RBC 3.92 L Hgb 11.6 L Hct 35.7 L MCV 91.1 MCH 29.6 MCHC 32.5 RDW Std Deviation 47.9 H RDW Coeff of Brittanie 14.5 Plt Count 264 MPV 11.0 Immature Gran % (Auto) 0.700 Neut % (Auto) 90.4 H Lymph % (Auto) 6.5 L Brewster % (Auto) 2.3 Eos % (Auto) 0.0 Baso % (Auto) 0.1 Absolute Neuts (auto) 7.4 Absolute Lymphs (auto) 0.53 L Total Counted Neutrophils % (Manual) Band Neutrophils % Lymphocytes % (Manual) Monocytes % (Manual) Eosinophils % (Manual) Basophils % (Manual) Metamyelocytes % Myelocytes % Promyelocytes % Blast Cells % Plasma Cell % (Manual) Other Cells % Nucleated RBC % 0 Nucleated RBCs/100 WBC Differential Comment SCANNED Diff Path Review Hypersegmented Neuts Atypical Lymphocytes Reactive Lymphocytes Smudge Cells Toxic Granulation Toxic Vacuolation Dohle Bodies Boyd Rods Platelet Estimate Plt Morphology Comment RBC Morphology Polychromasia Hypochromasia Poikilocytosis Basophilic Stippling Anisocytosis Microcytosis Macrocytosis Spherocytes Sickle Cells Target Cells Tear Drop Cells Ovalocytes Stomatocytes [place] Bodies Cleo Cells Bite Cells Crenated Cell Acanthocytes (Spur) Rouleaux Schistocytes PT INR Specimen Type ART Sample Site L Radial pH 7.27 L Bicarbonate Actual 27.9 H Total CO2 30 Base Excess 1 O2 Saturation 88 L O2 % 100 ABG pCO2 60.1 H ABG pO2 64 L Kwan Test Positive Respiration Rate 16 O2 Delivery Device Adult Vent Vent Mode AC Tidal Volume 400 POC PEEP 15 Sodium Potassium Chloride Carbon Dioxide Anion Gap BUN Creatinine Estim Creat Clear Calc Est GFR (MDRD) Af Amer Est GFR (MDRD) Non-Af BUN/Creatinine Ratio Glucose Calcium Total Bilirubin AST ALT Alkaline Phosphatase Total Creatine Kinase 20 L Total Protein Albumin Globulin Albumin/Globulin Ratio Triglycerides 139 08/05/20 10:00 WBC Corrected WBC RBC Hgb Hct MCV MCH MCHC RDW Std Deviation RDW Coeff of Brittanie Plt Count MPV Immature Gran % (Auto) Neut % (Auto) Lymph % (Auto) Brewster % (Auto) Eos % (Auto) Baso % (Auto) Absolute Neuts (auto) Absolute Lymphs (auto) Total Counted Neutrophils % (Manual) Band Neutrophils % Lymphocytes % (Manual) Monocytes % (Manual) Eosinophils % (Manual) Basophils % (Manual) Metamyelocytes % Myelocytes % Promyelocytes % Blast Cells % Plasma Cell % (Manual) Other Cells % Nucleated RBC % Nucleated RBCs/100 WBC Differential Comment Diff Path Review Hypersegmented Neuts Atypical Lymphocytes Reactive Lymphocytes Smudge Cells Toxic Granulation Toxic Vacuolation Dohle Bodies Boyd Rods Platelet Estimate Plt Morphology Comment RBC Morphology Polychromasia Hypochromasia Poikilocytosis Basophilic Stippling Anisocytosis Microcytosis Macrocytosis Spherocytes Sickle Cells Target Cells Tear Drop Cells Ovalocytes Stomatocytes Nguyen-[place] Bodies Cleo Cells Bite Cells Crenated Cell Acanthocytes (Spur) Rouleaux Schistocytes PT 15.6 H INR 1.3 Specimen Type Sample Site pH Bicarbonate Actual Total CO2 Base Excess O2 Saturation O2 % ABG pCO2 ABG pO2 Kwan Test Respiration Rate O2 Delivery Device Vent Mode Tidal Volume POC PEEP Sodium Potassium Chloride Carbon Dioxide Anion Gap BUN Creatinine Estim Creat Clear Calc Est GFR (MDRD) Af Amer Est GFR (MDRD) Non-Af BUN/Creatinine Ratio Glucose Calcium Total Bilirubin AST ALT Alkaline Phosphatase Total Creatine Kinase Total Protein Albumin Globulin Albumin/Globulin Ratio Triglycerides Microbiology 08/05/20 07:38 Sputum, Induced/Lukens Gram Stain - Final 07/30/20 17:07 Blood Culture (Wb) - Anticubital Right Blood Culture - Final No growth in 5 days. 07/30/20 17:15 Blood Culture (Wb) - Right Hand Blood Culture - Final No growth in 5 days. 08/01/20 17:52 Blood Culture (Wb) - Right Hand Blood Culture - Preliminary No growth in 48 hours. 08/01/20 17:45 Blood Culture (Wb) - Arm Right Blood Culture - Preliminary No growth in 48 hours. Clinical Impression(s) from Imaging Studies Chest X-Ray 07/16/20 15:58 IMPRESSION: Normal x-ray examination of the chest. Electronically Signed: Eddie Rivera DO at 16:09 EDT Tel [phone], Service support , Chest X-Ray 07/30/20 13:25 IMPRESSION: New bilateral pulmonary infiltrates worse in the left lower lobe with a peripheral distribution. Follow-up is recommended. Electronically Signed: Jesus Solitario, at 14:00 EST , Service support , Chest CTA 07/30/20 13:37 IMPRESSION: Nonocclusive pulmonary emboli in the upper lobe pulmonary artery. Diffuse increased interstitial markings involving both lungs worse in the lower lobes with areas of confluence. Follow-up is recommended. Electronically Signed: Jesus Solitario, at 14:28 EST , Service support , Chest X-Ray 08/04/20 08:02 IMPRESSION: Since prior study, there has been progressive pulmonary infiltrates worse in the left lung. Electronically Signed: Jesus Solitario, at 10:34 EST , Service support , Chest X-Ray 08/05/20 04:30 IMPRESSION: Interval intubation and gastric tube placement. Persistent patchy bilateral airspace opacities. Electronically Signed: Nik Wakefield, at 5:11 EST Tel , Service support , Chest X-Ray 08/05/20 12:35 IMPRESSION: A right-sided internal jugular venous catheter has been placed. The tip is at the junction of the superior vena cava and right atrium. The remainder of the examination is unchanged. Electronically Signed: Jesus Solitario, at 12:56 EST , Service support , Medical Necessity - Tobacco Use Smoking Status: Former smoker Tobacco Use: Cigarettes Assessment/Plan All Active Problems (Last Reviewed 07/16/20 @ 23:[address] Richard Gaona MD) COVID-19 (Acute) Hypoxia (Acute) Hypokalemia (Acute) Respiratory insufficiency (Acute) RECOMMENDATIONS: 1. Continue current supportive measures with invasive mechanical ventilatory support. 2. Continue patient on assist control mode of mechanical ventilation and wean FiO2 and PEEP as tolerated. 3. Continue current sedation regimen and chemical paralysis with Nimbex. Goal to begin to lift paralytic tomorrow. 4. Obtain repeat arterial blood gas. 5. Administer IV Lasix today. 6. Continue Levophed and wean to maintain a mean arterial pressure at or above 65 mmHg. 7. Continue empiric antimicrobials and Decadron. 8. Okay to start tube feeds. IMPRESSIONS: 1. Acute hypoxemic respiratory failure secondary to COVID-19 pneumonia/pulmonary emboli The patient continues to be quite tenuous from a respiratory perspective with high oxygen requirement. The patient has already completed a treatment course of remdesivir and Decadron. She also received convalescent plasma. CTA chest obtained during this hospitalization did reveal small upper lobe pulmonary emboli. The patient remains on therapeutic Lovenox. Unfortunately, the patient did decompensate from a respiratory perspective and did require intubation. The patient remains on high sedation and pharmacologic paralysis. FiO2 has improved some over the last 24 hours. Plan to continue the aforementioned interventions, with plans to lift paralytics sometime tomorrow. Attempt to wean PEEP can be entertained once the patient's FiO2 requirement has been decreased to 50%. We will give Lasix today as well. 2. Distributive shock The patient did develop hemodynamic instability as a consequence of sedative medication use, requiring vasopressor initiation. Plan to continue Levophed to maintain a mean arterial pressure at or above 65 mmHg. 3. Acute kidney injury Improved. Suspect likely secondary to ischemic ATN in the setting of #1 and 2. Plan to continue current supportive measures, including vasopressor support to maintain hemodynamic stability. Continue to monitor urine output. No current indication for renal replacement therapy. 4. Advanced age/anxiety/hypothyroidism/hypertension/GERD Complicates care, management, recovery and prognosis. Continue current supportive measures. CODE status: Discussed CODE status at length including difference between FULL code, DNR-CCA and DNR-CC status. Following discussions about the differences in these status, patient's family requested DNR CCA CODE STATUS. TIME: 38 minutes of critical care time, independent of procedures, was spent addressing the patient's acute hypoxemic respiratory failure, COVID-19 pneumonia, pulmonary emboli, acute kidney injury, distributive shock, review of all data and collaboration with the care team. ([id number]) [phone]: [id number] Critical care first hour
[2020-08-06 06:48] LABS: Anion Gap 6 (5-15); BUN 30 mg/dL (7-18); BUN/Creat Ratio 26.8 RATIO (10-20); Calcium,Total 9.3 mg/dL (8.5-10.1); Chloride 111 mmol/L (98-107); Creatinine, Serum 1.12 mg/dL (0.55-1.02); EST Glomerular Filtration Rate 52 mL/min (>60); Est Glom Filt Rate - Afr Amer 63 mL/min (>60); Estimated Creatinine Clearance 43.24 ml/min; Glucose 148 mg/dL (74-106); Potassium 4.6 mmol/L (3.5-5.1); Sodium Level 143 mmol/L (136-145)
[2020-08-06] MEDS: Furosemide 40 MG/4 ML Vial IV (07:08)
[2020-08-06] MEDS: Propofol 10MG/Ml 1,000 MG/100 ML Bottle 16.2 MG CONT INF ×3 (09:00→20:40)
[2020-08-06] MEDS: NYSTATIN 500,000 UNIT/5 ML UDC 500000 UNIT PO ×4 (09:17→22:08)
[2020-08-06] MEDS: Chlorhexidine 15 ML PO ×2 (09:17→22:08)
[2020-08-06] MEDS: Enoxaparin 80 MG/0.8 ML Syringe SC ×2 (09:18→22:07)
[2020-08-06] MEDS: Levothyroxine 25 MCG TABLET GT (09:18)
[2020-08-06] MEDS: dexAMETHasone 2 MG TABLET 6 MG GT (09:18)
[2020-08-06] MEDS: 0.9% Saline Lock 10 ML Syringe IV ×2 (09:19→09:21)
--- NOTE | 2020-08-06 10:06 | PCM.NTREPORT ---
Nutrition Therapy Report - History Nutrition Services has been consulted to:: Manage enteral nutrition Current diet / nutrition support order:: NPO - Anthropometric Measurements Height:: 5 ft 4 in Weight:: 76.5 kg Body Mass Index (BMI):: 28.9 - Relevant Labs Relevant Labs:: WBC 11.2 K/mm3 (4.4-11.0) H 07/29/20 05:50 RBC 3.92 M/mm3 (4.2-5.4) L 08/05/20 04:55 Hgb 11.6 g/dL (12.0-15.0) L 08/05/20 04:55 Hct 35.7 % (37-47) L 08/05/20 04:55 MCHC 31.6 g/dL (32-36) L 08/01/20 02:19 RDW Std Deviation 47.9 fl (35.1-43.9) H 08/05/20 04:55 Immature Gran % (Auto) 1.400 % (0.0-0.9) H 08/01/20 02:19 Neut % (Auto) 90.4 % (47-70) H 08/05/20 04:55 Lymph % (Auto) 6.5 % (19-41) L 08/05/20 04:55 Burleigh % (Auto) 11.1 % (0-10) H 07/22/20 05:45 Absolute Neuts (auto) 7.9 X10^3/uL (2.0-7.7) H 08/04/20 04:35 Absolute Lymphs (auto) 0.53 X10^3/uL (0.83-4.51) L 08/05/20 04:55 PT 15.6 SECONDS (11.7-14.9) H 08/05/20 10:00 D-Dimer Quant (PE/DVT) 1.36 FEU/ug/m (0.27-0.49) H* 07/16/20 22:53 Sodium 135 mmol/L (136-145) L 07/27/20 05:50 Potassium 2.9 mmol/L (3.5-5.1) L 07/23/20 08:40 Chloride 111 mmol/L (98-107) H 08/06/20 04:25 Carbon Dioxide 20.0 mmol/L (21.0-32.0) L 07/19/20 07:18 Anion Gap 4 (5-15) L 08/01/20 02:19 BUN 30 mg/dL (7-18) H 08/06/20 04:25 Creatinine 1.12 mg/dL (0.55-1.02) H 08/06/20 04:25 Est GFR (MDRD) Af Amer 49 mL/min (>60) L 08/05/20 04:55 Est GFR (MDRD) Non-Af 52 mL/min (>60) L 08/06/20 04:25 BUN/Creatinine Ratio 26.8 RATIO (10-20) H 08/06/20 04:25 Glucose 148 mg/dL (74-106) H 08/06/20 04:25 Calcium 8.4 mg/dL (8.5-10.1) L 08/03/20 04:05 AST 40 U/L (15-37) H 07/22/20 05:45 ALT 61 U/L (13-56) H 08/05/20 04:55 Alkaline Phosphatase 170 U/L (45-117) H 08/05/20 04:55 Total Creatine Kinase 20 U/L (26-192) L 08/05/20 04:55 B-Natriuretic Peptide 157.1 pg/mL (0-100) H 07/17/20 07:00 Total Protein 6.2 g/dL (6.4-8.2) L 08/03/20 04:05 Albumin 2.0 g/dL (3.2-5.0) L 08/05/20 04:55 Globulin 5.6 g/dL (2.2-4.2) H 08/05/20 04:55 Albumin/Globulin Ratio 0.4 RATIO (0.9-2.4) L 08/05/20 04:55 Procalcitonin 0.13 ng/mL (0.00-0.09) H 07/30/20 13:40 - Assessment Food / Nutrition-Related History:: Pt remains intubated - sedated and on vent. Per Dr. Noe at ICU rounds, to start tf today - see rec below. WT increase of 3.2 kg since last review - plans for diuretic tx d/t fluid overload. OG to intermittent low wall suction. Last BM 08/04. [ End ] - Nutrition Diagnosis Problem / Etiology / Signs & Symptoms (PES):: Pt w/ severe acute malnutrition r/t inadequate energy intake w/ COVID-19 infection as evidenced by 7.4kg/9.2% wt loss x< 1 month and estimated PO intake meeting less than 50% of pt's estimated PO needs for greater than 1 week. [ End ] Evidence of Malnutrition Exists:: Yes Severe PCM:: Acute Illness - Nutrition Intervention Nutrition Prescription:: [id number] jaci / 87-110 gm pro / day - Food / Nutrient Delivery Interventions Nutrition support ordered as / adjusted to:: Enteral nutrition support via OGT- Vital AF 1.2 at goal rate of 60mL/hour w/ 100mL H2O flush q4 hours to provide 1728 calories, 108 g protein, and 1767mL total fluid/day. Enteral nutrition support will be administered via gravity feed bag. Total formula to be administered in 24 hours: 1440 ml. Will order 120 ml for first 4 hours (approx 10 drops/min, 3 drops per 15 sec); increase to 180 ml for next 4 hrs as tolerated (approx 15 drops/min, 4 drops per 15 sec). Goal rate is 240 ml per 4 hours (approx 20 drops/min, 5 drops per 15 sec). Flush w/ 100 ml H2O every 4 hours. Nutrition education provided?: No - MNT Monitoring Further MNT monitoring and evaluation required?: Yes MNT Follow-up in:: 1-2 days - if questions, please call RD/LD at [phone]
--- NOTE | 2020-08-06 10:07 | CASEMGMT ---
RN YING Note: participated in ICU interdisciplinary rounds. Patient remains intubated on ventilator, 55% O2, Peep 15. Fentanyl, Levophed. Plan is continued care through weekend, and may need family conversation re: plan of care if no improvement. -call to jacqueline Levin w/[facility] to update patient is not ready for dc, is intubated and dc planning is on hold. DC PLANNING: on hold. CM/SW is available for family support. Jessica MANNN RN ACM
[2020-08-06] MEDS: Famotidine 200 MG/20 ML MDV 20 MG in 0.9% Normal Saline (Pres. free 8 ML 300 MG IV ×2 (11:53→22:08)
--- NOTE | 2020-08-06 12:37 | PN_ITS ---
Patient Problems: Active and Suspected Problems (Last Reviewed 07/16/20 @ 23:[address] Richard Gaona MD) COVID-19 (Acute) Hypoxia (Acute) Hypokalemia (Acute) Respiratory insufficiency (Acute) Subjective: Intubated and sedated, no issues overnight Vitals/I&O's: Vital Signs Temp Pulse Resp BP Pulse Ox 99 F 53 L 16 110/64 92 08/06/20 10:30 08/06/20 10:30 08/06/20 10:30 08/06/20 10:30 08/06/20 10:30 Oxygen Flow Rate (L/min) 60 Oxygen Delivery Method Mechanical Ventilator Weight: 168 lb 10.458 oz Body Mass Index (BMI) 28.9 Intake and Output for Last 24 Hours 08/04/20 08/05/20 08/06/20 23:59 23:59 23:59 Intake Total 890 / 890 2057.96 / 2135.76 1232.45 / 1232.45 Output Total 1450 / 1450 875 / 875 395 / 395 Balance -560 / -560 1182.96 / 1260.76 837.45 / 837.45 General: - - Intubated and sedated HEENT: Atraumatic, PERRLA, Normocephalic Oral: Moist Mucosa Neck: Supple, No JVD Lungs: No rhonchi, No wheeze, No rales, Diminished Cardiovascular: Regular Rhythm, Normal S1, Normal S2, No murmurs, Bradycardic Abdomen: Soft, Non Tender, Non-Distended, No Hepato-splenomegaly Extremities: No edema Skin: No rashes, No breakdown Neurological: - - Intubated and sedated and paralyzed Psych/Mental Status: - - Intubated and sedated Microbiology Past 72 Hours 08/05/20 07:38 Sputum, Induced/Lukens Gram Stain - Final 08/05/20 07:38 Sputum, Induced/Lukens Respiratory Culture - Preliminary Appears to be normal respiratory olivia. Further studies to follow. 07/30/20 17:07 Blood Culture (Wb) - Anticubital Right Blood Culture - Final No growth in 5 days. 07/30/20 17:15 Blood Culture (Wb) - Right Hand Blood Culture - Final No growth in 5 days. 08/01/20 17:52 Blood Culture (Wb) - Right Hand Blood Culture - Preliminary No growth in 48 hours. 08/01/20 17:45 Blood Culture (Wb) - Arm Right Blood Culture - Preliminary No growth in 48 hours. Laboratory Results 08/06/20 04:25: Sodium 143, Potassium 4.6, Chloride 111 H, Carbon Dioxide 26.0, Anion Gap 6, BUN 30 H, Creatinine 1.12 H, Estim Creat Clear Calc 43.24, Est GFR (MDRD) Af Amer 63, Est GFR (MDRD) Non-Af 52 L, BUN/Creatinine Ratio 26.8 H, Glucose 148 H, Calcium 9.3 Current Medications Acetaminophen (Acetaminophen 650 Mg/20 Ml Udc) 650 mg GT Q6H PRN PRN PRN Reason: Pain Score 1-10/Temp > 100.7 F Albuterol Sulfate (Albuterol 2.5 Mg/3 Ml Vial.Neb.) 2.5 mg INHALATION Q2H PRN PRN PRN Reason: Dyspnea, wheezing Chlorhexidine Gluconate (Chlorhexidine 15 Ml) 15 ml PO BID [facility] Last Admin: 08/06/20 09:17 Dose: 15 ml Documented by: Dexamethasone (Dexamethasone 2 Mg Tablet) 6 mg GT DAILY [facility] Stop: 08/14/20 10:01 Last Admin: 08/06/20 09:18 Dose: 6 mg Documented by: Enoxaparin Sodium (Enoxaparin 80 Mg/0.8 Ml Syringe) 80 mg SC BID [facility] Last Admin: 08/06/20 09:18 Dose: 80 mg Documented by: Meropenem 1 gm/ Sodium (Chloride) 120 mls @ 33 mls/hr IV Q8 [facility] Last Admin: 08/06/20 07:08 Dose: 33 mls/hr Documented by: Fentanyl Citrate 1,000 mcg/ (Sodium Chloride) 100 mls @ 20 mls/hr CONT INF .Q5H [facility]; Protocol Last Admin: 08/06/20 11:56 Dose: Not Given Documented by: Propofol (Diprivan) 1,000 mg in 100 mls @ 16.17 mls/hr CONT INF .Q6H12M [facility]; Protocol Last Titration: 08/06/20 10:00 Dose: 35 mcg/kg/min, 16.2 mls/hr Documented by: Famotidine 20 mg/ Sodium (Chloride) 10 mls @ 300 mls/hr IV Q12 [facility] Last Admin: 08/06/20 11:53 Dose: 300 mls/hr Documented by: Norepinephrine Bitartrate 8 mg (/ Sodium Chloride) 250 mls @ 9.375 mls/hr CONT INF .[id number] [facility]; Protocol Last Titration: 08/06/20 10:30 Dose: 3 mcg/min, 5.6 mls/hr Documented by: Cisatracurium Besylate 100 mg/ (Sodium Chloride) 250 mls @ 21.99 mls/hr CONT INF .[id number] [facility]; Protocol Last Titration: 08/06/20 10:30 Dose: 4 mcg/kg/min, 44 mls/hr Documented by: Levothyroxine Sodium (Levothyroxine 25 Mcg Tablet) 25 mcg GT DAILY [facility] Last Admin: 08/06/20 09:18 Dose: 25 mcg Documented by: Nystatin (Nystatin 500,000 Unit/5 Ml Udc) 500,000 unit PO 4X/DAY [facility] Last Admin: 08/06/20 09:17 Dose: 500,000 unit Documented by: Ondansetron HCl (Ondansetron 4 Mg/2 Ml Vial) 4 mg IV Q6H PRN PRN PRN Reason: NAUSEA/VOMITING Last Admin: 08/04/20 17:35 Dose: 4 mg Documented by: Sodium Chloride (0.9% Saline Lock 10 Ml Syringe) 10 - 40 ml IV UD PRN PRN Reason: SALINE FLUSH Last Admin: 08/06/20 09:21 Dose: 30 ml Documented by: STROKE Vital Signs/Narrative: Vital Signs Temp Pulse Resp BP Pulse Ox 08/06/20 10:30 99 F 53 L 16 110/64 92 08/06/20 10:15 99 F 55 L 16 103/60 92 08/06/20 10:11 55 L 16 91 08/06/20 10:00 99.1 F 58 L 16 102/61 92 08/06/20 09:45 59 L 16 107/63 91 Medical Necessity - Tobacco Use Smoking Status: Former smoker Tobacco Use: Cigarettes Assessment/Plan All Active Problems (Last Reviewed 07/16/20 @ 23:[address] Richard Gaona MD) COVID-19 (Acute) Hypoxia (Acute) Hypokalemia (Acute) Respiratory insufficiency (Acute) 1. Acute hypoxic respiratory failure secondary to COVID-19 pneumonia/PE/viral gastroenteritis/distributive shock/JARRETT -She is currently intubated, sedated, and paralyzed -Initially she did have blood pressures that necessitated Levophed which she is still on however she also be given a dose of Lasix given her fluid overload given that she is 16 L positive -We will continue with therapeutic Lovenox -She has completed remdesivir as well as Decadron -Creatinine is stable at around 1 2. HTN -Her blood pressure medications are on hold given the need for vasopressors 3. Hypothyroidism -Stable -Continue with Synthroid 4. GERD -Stable -Continue with PPI DVT: Therapeutic Lovenox Inpatient E&M: [id number] [facility] L2
--- NOTE | 2020-08-06 13:56 | NURSING ---
called and gave permission for daughter to fruit picker patients purse.
--- NOTE | 2020-08-06 16:17 | PN.ID_ITS ---
Patient Problems: Active and Suspected Problems (Last Reviewed 07/16/20 @ 23:[address] Richard Gaona MD) COVID-19 (Acute) Hypoxia (Acute) Hypokalemia (Acute) Respiratory insufficiency (Acute) Subjective: On vent, O2 better, no fever - Physical Exam Vitals/I&O's: Vital Signs Temp Pulse Resp BP Pulse Ox 99.1 F 48 L 16 96/53 L 91 08/06/20 13:00 08/06/20 15:00 08/06/20 15:00 08/06/20 15:00 08/06/20 15:00 Oxygen Flow Rate (L/min) 60 Oxygen Delivery Method Mechanical Ventilator Weight: 76.5 kg Body Mass Index (BMI) 28.9 Intake and Output for Last 24 Hours 08/04/20 08/05/20 08/06/20 23:59 23:59 23:59 Intake Total 890 / 890 2057.96 / 2135.76 1675.68 / 1675.68 Output Total 1450 / 1450 875 / 875 575 / 575 Balance -560 / -560 1182.96 / 1260.76 1100.68 / 1100.68 General: No apparent distress Lungs: Diminished Cardiovascular: Regular rate, Regular Rhythm Abdomen: Soft, Non Tender, Non-Distended Skin: No rashes Microbiology Past 72 Hours 08/05/20 07:38 Sputum, Induced/Lukens Gram Stain - Final 08/05/20 07:38 Sputum, Induced/Lukens Respiratory Culture - Preliminary Appears to be normal respiratory olivia. Further studies to follow. 07/30/20 17:07 Blood Culture (Wb) - Anticubital Right Blood Culture - Final No growth in 5 days. 07/30/20 17:15 Blood Culture (Wb) - Right Hand Blood Culture - Final No growth in 5 days. 08/01/20 17:52 Blood Culture (Wb) - Right Hand Blood Culture - Preliminary No growth in 48 hours. 08/01/20 17:45 Blood Culture (Wb) - Arm Right Blood Culture - Preliminary No growth in 48 hours. Laboratory Results 08/06/20 04:25: Sodium 143, Potassium 4.6, Chloride 111 H, Carbon Dioxide 26.0, Anion Gap 6, BUN 30 H, Creatinine 1.12 H, Estim Creat Clear Calc 43.24, Est GFR (MDRD) Af Amer 63, Est GFR (MDRD) Non-Af 52 L, BUN/Creatinine Ratio 26.8 H, Glucose 148 H, Calcium 9.3 Current Medications Acetaminophen (Acetaminophen 650 Mg/20 Ml Udc) 650 mg GT Q6H PRN PRN PRN Reason: Pain Score 1-10/Temp > 100.7 F Albuterol Sulfate (Albuterol 2.5 Mg/3 Ml Vial.Neb.) 2.5 mg INHALATION Q2H PRN PRN PRN Reason: Dyspnea, wheezing Chlorhexidine Gluconate (Chlorhexidine 15 Ml) 15 ml PO BID [facility] Last Admin: 08/06/20 09:17 Dose: 15 ml Documented by: Dexamethasone (Dexamethasone 2 Mg Tablet) 6 mg GT DAILY [facility] Stop: 08/14/20 10:01 Last Admin: 08/06/20 09:18 Dose: 6 mg Documented by: Enoxaparin Sodium (Enoxaparin 80 Mg/0.8 Ml Syringe) 80 mg SC BID [facility] Last Admin: 08/06/20 09:18 Dose: 80 mg Documented by: Meropenem 1 gm/ Sodium (Chloride) 120 mls @ 33 mls/hr IV Q8 [facility] Last Admin: 08/06/20 14:33 Dose: 33 mls/hr Documented by: Fentanyl Citrate 1,000 mcg/ (Sodium Chloride) 100 mls @ 20 mls/hr CONT INF .Q5H [facility]; Protocol Last Titration: 08/06/20 15:00 Dose: 200 mcg/hr, 20 mls/hr Documented by: Propofol (Diprivan) 1,000 mg in 100 mls @ 16.17 mls/hr CONT INF .Q6H12M [facility]; Protocol Last Titration: 08/06/20 15:00 Dose: 35 mcg/kg/min, 16.2 mls/hr Documented by: Famotidine 20 mg/ Sodium (Chloride) 10 mls @ 300 mls/hr IV Q12 [facility] Last Infusion: 08/06/20 11:55 Dose: Infused Documented by: Norepinephrine Bitartrate 8 mg (/ Sodium Chloride) 250 mls @ 9.375 mls/hr CONT INF .[id number] [facility]; Protocol Last Titration: 08/06/20 15:12 Dose: 2 mcg/min, 3.8 mls/hr Documented by: Cisatracurium Besylate 100 mg/ (Sodium Chloride) 250 mls @ 21.99 mls/hr CONT INF .[id number] [facility]; Protocol Last Titration: 08/06/20 15:01 Dose: 3 mcg/kg/min, 33 mls/hr Documented by: Enteral Nutritional Formula (Vital Af 1.2 Edwardo Liquid) 1,000 mls @ 60 mls/hr GT .[id number] [facility] Levothyroxine Sodium (Levothyroxine 25 Mcg Tablet) 25 mcg GT DAILY [facility] Last Admin: 08/06/20 09:18 Dose: 25 mcg Documented by: Nystatin (Nystatin 500,000 Unit/5 Ml Udc) 500,000 unit PO 4X/DAY [facility] Last Admin: 08/06/20 14:33 Dose: 500,000 unit Documented by: Ondansetron HCl (Ondansetron 4 Mg/2 Ml Vial) 4 mg IV Q6H PRN PRN PRN Reason: NAUSEA/VOMITING Last Admin: 08/04/20 17:35 Dose: 4 mg Documented by: Sodium Chloride (0.9% Saline Lock 10 Ml Syringe) 10 - 40 ml IV UD PRN PRN Reason: SALINE FLUSH Last Admin: 08/06/20 09:21 Dose: 30 ml Documented by: Medical Necessity - Tobacco Use Smoking Status: Former smoker Tobacco Use: Cigarettes Route of nutrition/ use of supplements: [] Nutritional Intake: [] IV Site: [] Gr Catheter: [] - Assessment/Plan Antibiotics: [] Assessment/Plan: [] Active and Suspected Problems (Last Reviewed 07/16/20 @ 23:[address] Richard Gaona MD) COVID-19 (Acute) Hypoxia (Acute) Hypokalemia (Acute) Respiratory insufficiency (Acute) On dex, completed remdesivir. Got plasma 07/19. 07/30 felt worse with fever overnight, still high O2 reqs. Started on empiric vanc/zosyn. Cxs neg, CT showed PE, and PCT was less than 0.2. Stopped vanc 08/01, stopped zosyn 08/02. Now on vent, empiric gisella started 08/04, paralyzed, pressor. O2 better. Will follow
[2020-08-06] MEDS: Vital AF 1.2 Cal Liquid 1,000 ML 60 ML GT (20:50)
[2020-08-07] VITALS (44 sets, daily range): BP systolic 85–131; BP diastolic 49–70; PULSE 46–88; RESP 14–19; TEMP 37.1–37.9; O2SAT 88–97
[2020-08-07] MEDS: Vital AF 1.2 Cal Liquid 1,000 ML 60 ML GT ×3 (00:03→11:06)
[2020-08-07] MEDS: Propofol 10MG/Ml 1,000 MG/100 ML Bottle 16.2 MG CONT INF ×2 (02:15→05:50)
[2020-08-07] MEDS: TITRATION PARAMETER CHANGE 1 EACH IV (05:44)
--- NOTE | 2020-08-07 05:54 | PN_ITS ---
Subjective: The patient was seen and examined at the bedside this morning. Events from the last 24 hours have been reviewed. The patient is currently afebrile, hemodynamically stable and maintaining appropriate oxygen saturations on assist control mode of mechanical ventilation with an FiO2 requirement of 50%. PEEP remains at 15 cm of water. Levophed has been weaned down to 1 mcg/min as of this morning. The patient remains on high doses of propofol and fentanyl and remains pharmacologically paralyzed on Nimbex. She is currently tolerating tube feeds. She is currently documented to be overall net +17.6 L for the hospital admission. Objective: The patient's most recent lab work, culture data and imaging studies have all been personally reviewed. Coronavirus PCR was positive on July 14. CTA chest completed on July 30 did reveal small left upper lobe PE. General: - - Remains intubated, sedated and mechanically ventilated. HEENT: Atraumatic, Normocephalic Oral: No Gingival or Mucosal Lesions/ Ulcerations, - - Stable endotracheal and OG tubes. Neck: Supple, No Nodes, Trachea Midline, - - Central venous catheter remains in place. Lungs: No rhonchi, No wheeze, No rales, Diminished Cardiovascular: Normal S1, Normal S2, No murmurs, Bradycardic Abdomen: Bowel Sounds Present, Soft, Non Tender Extremities: No clubbing, No cyanosis, No edema Skin: No breakdown Neurological: - - Unable to assess neurological status as the patient is currently sedated and pharmacologically paralyzed. Vital Signs Temp Pulse Resp BP Pulse Ox 98.7 F 57 L 16 110/58 L 93 08/07/20 05:00 08/07/20 05:18 08/07/20 05:18 08/07/20 05:00 08/07/20 05:18 Oxygen Flow Rate (L/min) 60 Oxygen Delivery Method Mechanical Ventilator Weight: 171 lb 15.369 oz Body Mass Index (BMI) 28.9 Intake and Output for Last 24 Hours 08/05/20 08/06/20 08/07/20 23:59 23:59 23:59 Intake Total 2057.96 / 2135.76 2446.68 / 2619.68 757.75 / 757.75 Output Total 875 / 875 865 / 895 80 / 80 Balance 1182.96 / 1260.76 1581.68 / 1724.68 677.75 / 677.75 Labs (Last 48 Hours) 08/05/20 08/05/20 08/06/20 09:12 10:00 04:25 PT 15.6 H INR 1.3 Specimen Type ART Sample Site L Radial pH 7.27 L Bicarbonate Actual 27.9 H Total CO2 30 Base Excess 1 O2 Saturation 88 L O2 % 100 ABG pCO2 60.1 H ABG pO2 64 L Kwan Test Positive Respiration Rate 16 O2 Delivery Device Adult Vent Vent Mode AC Tidal Volume 400 POC PEEP 15 Sodium 143 Potassium 4.6 Chloride 111 H Carbon Dioxide 26.0 Anion Gap 6 BUN 30 H Creatinine 1.12 H Estim Creat Clear Calc 43.24 Est GFR (MDRD) Af Amer 63 Est GFR (MDRD) Non-Af 52 L BUN/Creatinine Ratio 26.8 H Glucose 148 H Calcium 9.3 Microbiology 08/05/20 07:38 Sputum, Induced/Lukens Gram Stain - Final 08/05/20 07:38 Sputum, Induced/Lukens Respiratory Culture - Preliminary Appears to be normal respiratory olivia. Further studies to follow. 07/30/20 17:07 Blood Culture (Wb) - Anticubital Right Blood Culture - Final No growth in 5 days. 07/30/20 17:15 Blood Culture (Wb) - Right Hand Blood Culture - Final No growth in 5 days. Clinical Impression(s) from Imaging Studies Chest X-Ray 07/16/20 15:58 IMPRESSION: Normal x-ray examination of the chest. Electronically Signed: Eddie Rivera DO at 16:09 EDT Tel [phone], Service support , Chest X-Ray 07/30/20 13:25 IMPRESSION: New bilateral pulmonary infiltrates worse in the left lower lobe with a peripheral distribution. Follow-up is recommended. Electronically Signed: Jesus Solitario, at 14:00 EST , Service support , Chest CTA 07/30/20 13:37 IMPRESSION: Nonocclusive pulmonary emboli in the upper lobe pulmonary artery. Diffuse increased interstitial markings involving both lungs worse in the lower lobes with areas of confluence. Follow-up is recommended. Electronically Signed: Jesus Solitario, at 14:28 EST , Service support , Chest X-Ray 08/04/20 08:02 IMPRESSION: Since prior study, there has been progressive pulmonary infiltrates worse in the left lung. Electronically Signed: Jesus Fernándezmorgandayana, at 10:34 EST , Service support , Chest X-Ray 08/05/20 04:30 IMPRESSION: Interval intubation and gastric tube placement. Persistent patchy bilateral airspace opacities. Electronically Signed: Nik Wakefield, at 5:11 EST Tel , Service support , Chest X-Ray 08/05/20 12:35 IMPRESSION: A right-sided internal jugular venous catheter has been placed. The tip is at the junction of the superior vena cava and right atrium. The remainder of the examination is unchanged. Electronically Signed: Jesus Solitario, at 12:56 EST , Service support , Medical Necessity - Tobacco Use Smoking Status: Former smoker Tobacco Use: Cigarettes Assessment/Plan All Active Problems (Last Reviewed 07/16/20 @ 23:[address] Richard Gaona MD) COVID-19 (Acute) Hypoxia (Acute) Hypokalemia (Acute) Respiratory insufficiency (Acute) RECOMMENDATIONS: 1. Continue current supportive measures with invasive mechanical ventilatory support. 2. Continue patient on assist control mode of mechanical ventilation and wean FiO2 and PEEP as tolerated. 3. Continue current sedation regimen and wean from Nimbex today. 4. Continue Levophed and wean to maintain a mean arterial pressure at or above 65 mmHg. 5. Continue empiric antimicrobials and Decadron. 6. Continue tube feeds as ordered. 7. Continue Lovenox twice daily. 8. Continue appropriate GI prophylaxis. 9. Start scheduled IV Lasix twice daily. IMPRESSIONS: 1. Acute hypoxemic respiratory failure secondary to COVID-19 pneumonia/pulmonary emboli The patient continues to be quite tenuous from a respiratory perspective with high oxygen requirement. The patient has already completed a treatment course of remdesivir and Decadron. She also received convalescent plasma. CTA chest obtained during this hospitalization did reveal small upper lobe pulmonary emboli. The patient remains on therapeutic Lovenox. Unfortunately, the patient did decompensate from a respiratory perspective and did require intubation. The patient remains on high sedation and pharmacologic paralysis. FiO2 has improved. Plan to continue the aforementioned interventions, with plans to discontinue paralytics today. Given that the patient is maintaining appropriate oxygen saturations with an FiO2 requirement of 50%, will now attempt to wean PEEP cautiously. The patient will also be placed on twice daily scheduled IV L asix. 2. Distributive shock Improving. The patient did develop hemodynamic instability as a consequence of sedative medication use, requiring vasopressor initiation. Plan to continue Levophed to maintain a mean arterial pressure at or above 65 mmHg. 3. Acute kidney injury Improved. Suspect likely secondary to ischemic ATN in the setting of #1 and 2. Plan to continue current supportive measures, including vasopressor support to maintain hemodynamic stability. Continue to monitor urine output. No current indication for renal replacement therapy. 4. Advanced age/anxiety/hypothyroidism/hypertension/GERD Complicates care, management, recovery and prognosis. Continue current supportive measures. CODE status: Discussed CODE status at length including difference between FULL code, DNR-CCA and DNR-CC status. Following discussions about the differences in these status, patient's family requested DNR CCA CODE STATUS. TIME: 36 minutes of critical care time, independent of procedures, was spent addressing the patient's acute hypoxemic respiratory failure, COVID-19 pneumonia, pulmonary emboli, acute kidney injury, distributive shock, review of all data and collaboration with the care team. ([id number]) [phone]: [id number] Critical care first hour
[2020-08-07 06:47] LABS: Absolute Lymphocyte Count 1.03 X10^3/uL (0.83-4.51); Absolute Neutrophil Count 6.3 X10^3/uL (2.0-7.7); Basophil# 0.03 X10^3/uL; Basophil% 0.4 % (0-1); Eosinophil# 0.07 X10^3/uL; Eosinophils% 0.8 % (0-5); Hematocrit 33.9 % (37-47); Hemoglobin 10.6 g/dL (12.0-15.0); Lymphocyte # 1.03 X10^3/ul (4.0); Lymphocyte % 12.2 % (19-41); Mean Corp Hgb Conc 31.3 g/dL (32-36); Mean Corpuscular Hgb 29.8 pg (27.0-32.0); Mean Corpuscular Volume 95.2 fL (81-99); Mean Platelet Vol. 11.4 fl (6.2-12.0); Monocyte# 0.77 X10^3/uL; Monocyte% 9.1 % (0-10); NRBC Flagged by Analyzer 0 % (0-5); Neutrophil % 74.9 % (47-70); Platelet Count 348 K/mm3 (150-450); RBC Distribution Width CV 14.3 % (11.6-14.6); RBC Distribution Width SD 49.9 fl (35.1-43.9); Red Blood Count 3.56 M/mm3 (4.2-5.4); White Blood Count 8.4 K/mm3 (4.4-11.0)
[2020-08-07 06:59] LABS: Anion Gap 4 (5-15); BUN 41 mg/dL (7-18); BUN/Creat Ratio 40.2 RATIO (10-20); Calcium,Total 9.2 mg/dL (8.5-10.1); Chloride 109 mmol/L (98-107); Creatinine, Serum 1.02 mg/dL (0.55-1.02); EST Glomerular Filtration Rate 58 mL/min (>60); Est Glom Filt Rate - Afr Amer 70 mL/min (>60); Estimated Creatinine Clearance 47.48 ml/min; Glucose 137 mg/dL (74-106); Potassium 3.9 mmol/L (3.5-5.1); Sodium Level 144 mmol/L (136-145)
--- NOTE | 2020-08-07 09:46 | CM.UR ---
Participated in interdisciplinary rounds. Patient in on vent. Started on lasix bid. holding physical therapy at this time d/t failed mobility test. Poor prognosis. Plan is LTACH if improves. Evette Corral RN, CCM.
--- NOTE | 2020-08-07 11:00 | PCM.PN.HOSP ---
Patient Problems: Active and Suspected Problems (Last Reviewed 07/16/20 @ 23:[address] Richard Gaona MD) COVID-19 (Acute) Hypoxia (Acute) Hypokalemia (Acute) Respiratory insufficiency (Acute) Subjective: Intubated and sedated, her vasopressor has improved and PEEP has remained at 15. Vitals/I&O's: Vital Signs Temp Pulse Resp BP Pulse Ox 99.3 F H 52 L 16 95/54 L 96 08/07/20 08:00 08/07/20 08:00 08/07/20 08:00 08/07/20 08:00 08/07/20 08:00 Oxygen Flow Rate (L/min) 60 Oxygen Delivery Method Mechanical Ventilator Weight: 171 lb 15.369 oz Body Mass Index (BMI) 28.9 Intake and Output for Last 24 Hours 08/05/20 08/06/20 08/07/20 23:59 23:59 23:59 Intake Total 2057.96 / 2135.76 2446.68 / 2619.68 1081.99 / 1081.99 Output Total 875 / 875 865 / 895 105 / 105 Balance 1182.96 / 1260.76 1581.68 / 1724.68 976.99 / 976.99 General: - - Intubated and sedated HEENT: Atraumatic, PERRLA, Normocephalic Oral: Moist Mucosa Neck: Supple, No JVD Lungs: No rhonchi, No wheeze, No rales, Diminished Cardiovascular: Regular Rhythm, Normal S1, Normal S2, No murmurs, Bradycardic Abdomen: Soft, Non Tender, Non-Distended, No Hepato-splenomegaly Extremities: No edema Skin: No rashes, No breakdown Neurological: - - Intubated and sedated and paralyzed Psych/Mental Status: - - Intubated and sedated Microbiology Past 72 Hours 08/05/20 07:38 Sputum, Induced/Lukens Gram Stain - Final 08/05/20 07:38 Sputum, Induced/Lukens Respiratory Culture - Final Mixed normal respiratory olivia. No Streptococcus pneumoniae, beta-hemolytic Streptococcus or Staphylococcus aureus isolated. 08/01/20 17:52 Blood Culture (Wb) - Right Hand Blood Culture - Final No growth in 5 days. 08/01/20 17:45 Blood Culture (Wb) - Arm Right Blood Culture - Final No growth in 5 days. 07/30/20 17:07 Blood Culture (Wb) - Anticubital Right Blood Culture - Final No growth in 5 days. 07/30/20 17:15 Blood Culture (Wb) - Right Hand Blood Culture - Final No growth in 5 days. Laboratory Results 08/07/20 04:20: WBC 8.4, RBC 3.56 L, Hgb 10.6 L, Hct 33.9 L, MCV 95.2, MCH 29.8, MCHC 31.3 L, RDW Std Deviation 49.9 H, RDW Coeff of Brittanie 14.3, Plt Count 348, MPV 11.4, Immature Gran % (Auto) 2.600 H, Neut % (Auto) 74.9 H, Lymph % (Auto) 12.2 L, [place] % (Auto) 9.1, Eos % (Auto) 0.8, Baso % (Auto) 0.4, Absolute Neuts (auto) 6.3, Absolute Lymphs (auto) 1.03, Nucleated RBC % 0 08/07/20 04:20: Sodium 144, Potassium 3.9, Chloride 109 H, Carbon Dioxide 31.0, Anion Gap 4 L, BUN 41 H, Creatinine 1.02, Estim Creat Clear Calc 47.48, Est GFR (MDRD) Af Amer 70, Est GFR (MDRD) Non-Af 58 L, BUN/Creatinine Ratio 40.2 H, Glucose 137 H, Calcium 9.2 Current Medications Acetaminophen (Acetaminophen 650 Mg/20 Ml Udc) 650 mg GT Q6H PRN PRN PRN Reason: Pain Score 1-10/Temp > 100.7 F Albuterol Sulfate (Albuterol 2.5 Mg/3 Ml Vial.Neb.) 2.5 mg INHALATION Q2H PRN PRN PRN Reason: Dyspnea, wheezing Chlorhexidine Gluconate (Chlorhexidine 15 Ml) 15 ml PO BID [facility] Last Admin: 08/06/20 22:08 Dose: 15 ml Documented by: Dexamethasone (Dexamethasone 2 Mg Tablet) 6 mg GT DAILY [facility] Stop: 08/14/20 10:01 Last Admin: 08/06/20 09:18 Dose: 6 mg Documented by: Enoxaparin Sodium (Enoxaparin 80 Mg/0.8 Ml Syringe) 80 mg SC BID [facility] Last Admin: 08/06/20 22:07 Dose: 80 mg Documented by: Furosemide (Furosemide 40 Mg/4 Ml Vial) 40 mg IV BID@1000,1800 [facility] Meropenem 1 gm/ Sodium (Chloride) 120 mls @ 33 mls/hr IV Q8 [facility] Last Infusion: 08/07/20 10:44 Dose: Infused Documented by: Fentanyl Citrate 1,000 mcg/ (Sodium Chloride) 100 mls @ 20 mls/hr CONT INF .Q5H [facility]; Protocol Last Titration: 08/07/20 08:00 Dose: 200 mcg/hr, 20 mls/hr Documented by: Propofol (Diprivan) 1,000 mg in 100 mls @ 16.38 mls/hr CONT INF .Q6H7M [facility]; Protocol Last Titration: 08/07/20 08:00 Dose: 35 mcg/kg/min, 16.4 mls/hr Documented by: Famotidine 20 mg/ Sodium (Chloride) 10 mls @ 300 mls/hr IV Q12 [facility] Last Infusion: 08/06/20 22:10 Dose: Infused Documented by: Norepinephrine Bitartrate 8 mg (/ Sodium Chloride) 250 mls @ 9.375 mls/hr CONT INF .[id number] [facility]; Protocol Last Titration: 08/07/20 08:00 Dose: 1 mcg/min, 1.9 mls/hr Documented by: Cisatracurium Besylate 100 mg/ (Sodium Chloride) 250 mls @ 23.4 mls/hr CONT INF .[id number] [facility]; Protocol Last Titration: 08/07/20 08:45 Dose: 0 mcg/kg/min, 0 mls/hr Documented by: Enteral Nutritional Formula (Vital Af 1.2 Edwardo Liquid) 1,000 mls @ 60 mls/hr GT .[id number] [facility] Last Admin: 08/07/20 04:10 Dose: 60 mls/hr Documented by: Levothyroxine Sodium (Levothyroxine 25 Mcg Tablet) 25 mcg GT DAILY [facility] Last Admin: 08/06/20 09:18 Dose: 25 mcg Documented by: Nystatin (Nystatin 500,000 Unit/5 Ml Udc) 500,000 unit PO 4X/DAY [facility] Last Admin: 08/06/20 22:08 Dose: 500,000 unit Documented by: Ondansetron HCl (Ondansetron 4 Mg/2 Ml Vial) 4 mg IV Q6H PRN PRN PRN Reason: NAUSEA/VOMITING Last Admin: 08/04/20 17:35 Dose: 4 mg Documented by: Sodium Chloride (0.9% Saline Lock 10 Ml Syringe) 10 - 40 ml IV UD PRN PRN Reason: SALINE FLUSH Last Admin: 08/06/20 09:21 Dose: 30 ml Documented by: STROKE Vital Signs/Narrative: Vital Signs Temp Pulse Resp BP Pulse Ox 08/07/20 08:00 99.3 F H 52 L 16 95/54 L 96 Medical Necessity - Tobacco Use Smoking Status: Former smoker Tobacco Use: Cigarettes Assessment/Plan All Active Problems (Last Reviewed 07/16/20 @ 23:[address] Richard Gaona MD) COVID-19 (Acute) Hypoxia (Acute) Hypokalemia (Acute) Respiratory insufficiency (Acute) 1. Acute hypoxic respiratory failure secondary to COVID-19 pneumonia/PE/viral gastroenteritis/distributive shock/JARRETT -She is currently intubated, sedated, and paralyzed -Initially she did have blood pressures that necessitated Levophed which she is still on however she also be given a dose of Lasix given her fluid overload given that she is 18 L positive -We will continue with therapeutic Lovenox -She has completed remdesivir as well as Decadron -Creatinine is stable at around 1 2. HTN -Her blood pressure medications are on hold given the need for vasopressors 3. Hypothyroidism -Stable -Continue with Synthroid 4. GERD -Stable -Continue with PPI DVT: Therapeutic Lovenox Inpatient E&M: [id number] [facility] L2
[2020-08-07] MEDS: Enoxaparin 80 MG/0.8 ML Syringe SC ×2 (11:05→20:28)
[2020-08-07] MEDS: NYSTATIN 500,000 UNIT/5 ML UDC 500000 UNIT PO ×4 (11:05→20:29)
[2020-08-07] MEDS: Furosemide 40 MG/4 ML Vial IV ×2 (11:05→17:12)
[2020-08-07] MEDS: dexAMETHasone 2 MG TABLET 6 MG GT (11:06)
[2020-08-07] MEDS: Levothyroxine 25 MCG TABLET GT (11:06)
[2020-08-07] MEDS: 0.9% Saline Lock 10 ML Syringe IV ×2 (11:07→20:56)
[2020-08-07] MEDS: Chlorhexidine 15 ML PO ×2 (11:07→20:29)
[2020-08-07] MEDS: Famotidine 200 MG/20 ML MDV 20 MG in 0.9% Normal Saline (Pres. free 8 ML 300 MG IV ×2 (11:21→22:34)
[2020-08-07] MEDS: Propofol 10MG/Ml 1,000 MG/100 ML Bottle 23.4 MG CONT INF ×2 (12:01→15:01)
[2020-08-07] MEDS: Propofol 10MG/Ml 1,000 MG/100 ML Bottle 21.1 MG CONT INF (19:16)
[2020-08-08] VITALS (43 sets, daily range): BP systolic 89–129; BP diastolic 46–82; PULSE 41–87; RESP 14–20; TEMP 36.7–37.2; O2SAT 86–98
[2020-08-08] MEDS: Propofol 10MG/Ml 1,000 MG/100 ML Bottle 21.1 MG CONT INF (00:09)
[2020-08-08] MEDS: Vital AF 1.2 Cal Liquid 1,000 ML 60 ML GT ×4 (03:43→20:00)
[2020-08-08] MEDS: Propofol 10MG/Ml 1,000 MG/100 ML Bottle 18.7 MG CONT INF ×4 (05:00→23:30)
--- NOTE | 2020-08-08 05:53 | PCM.PN.INT ---
Subjective: The patient was seen and examined at the bedside this morning. Events from the last 24 hours have been reviewed. The patient is currently afebrile, hemodynamically stable and maintaining appropriate oxygen saturations on assist control mode of mechanical ventilation with an FiO2 requirement of 50% and PEEP of 12. The patient's paralytic was discontinued yesterday. She remains sedated on both propofol and fentanyl. She is currently documented to be overall net +19.7 L for the hospital admission. The patient was being maintained on a diuretic regimen, which had to be discontinued this morning due to worsening renal insufficiency. Objective: The patient's most recent lab work, culture data and imaging studies have all been personally reviewed. Coronavirus PCR was positive on July 14. Sputum culture dated August 05 appears to be normal respiratory olivia. CTA chest completed on July 30 did reveal small left upper lobe PE. General: - - Remains intubated, sedated and mechanically ventilated. No ventilator to synchrony noted. HEENT: Atraumatic, Normocephalic Oral: No Gingival or Mucosal Lesions/ Ulcerations, - - Stable endotracheal and OG tubes Neck: Supple, No Nodes, Trachea Midline, - - Central venous catheter remains in place Lungs: No rhonchi, No wheeze, No rales, Diminished Cardiovascular: Normal S1, Normal S2, No murmurs, Bradycardic Abdomen: Bowel Sounds Present, Soft, Non Tender Extremities: No clubbing, No cyanosis, No edema Skin: No breakdown Musculoskeletal: No Tenderness to Palpation of Joints or Extremities Lymphatic: No Cervical, Supraclavicular, or Inguinal Adenopathy Neurological: - - No focal neurological deficits. Currently sedated on the ventilator. Vital Signs Temp Pulse Resp BP Pulse Ox 98.1 F 45 L 16 93/56 L 95 08/08/20 04:00 08/08/20 04:00 08/08/20 04:00 08/08/20 04:00 08/08/20 04:00 Oxygen Flow Rate (L/min) 60 Oxygen Delivery Method Mechanical Ventilator Weight: 171 lb 15.369 oz Body Mass Index (BMI) 28.9 Intake and Output for Last 24 Hours 08/06/20 08/07/20 08/08/20 23:59 23:59 23:59 Intake Total 2446.68 / 2619.68 2347.09 / 2828.34 1211.63 / 1211.63 Output Total 865 / 895 785 / 795 Balance 1581.68 / 1724.68 1562.09 / 2033.34 1181.63 / 1181.63 Labs (Last 48 Hours) 08/06/20 08/07/20 08/07/20 04:25 04:20 04:20 WBC 8.4 RBC 3.56 L Hgb 10.6 L Hct 33.9 L MCV 95.2 MCH 29.8 MCHC 31.3 L RDW Std Deviation 49.9 H RDW Coeff of Brittanie 14.3 Plt Count 348 MPV 11.4 Immature Gran % (Auto) 2.600 H Neut % (Auto) 74.9 H Lymph % (Auto) 12.2 L [place] % (Auto) 9.1 Eos % (Auto) 0.8 Baso % (Auto) 0.4 Absolute Neuts (auto) 6.3 Absolute Lymphs (auto) 1.03 Nucleated RBC % 0 Sodium 143 144 Potassium 4.6 3.9 Chloride 111 H 109 H Carbon Dioxide 26.0 31.0 Anion Gap 6 4 L BUN 30 H 41 H Creatinine 1.12 H 1.02 Estim Creat Clear Calc 43.24 47.48 Est GFR (MDRD) Af Amer 63 70 Est GFR (MDRD) Non-Af 52 L 58 L BUN/Creatinine Ratio 26.8 H 40.2 H Glucose 148 H 137 H Calcium 9.3 9.2 Microbiology 08/05/20 07:38 Sputum, Induced/Lukens Gram Stain - Final 08/05/20 07:38 Sputum, Induced/Lukens Respiratory Culture - Final Mixed normal respiratory olivia. No Streptococcus pneumoniae, beta-hemolytic Streptococcus or Staphylococcus aureus isolated. 08/01/20 17:52 Blood Culture (Wb) - Right Hand Blood Culture - Final No growth in 5 days. 08/01/20 17:45 Blood Culture (Wb) - Arm Right Blood Culture - Final No growth in 5 days. Clinical Impression(s) from Imaging Studies Chest X-Ray 07/16/20 15:58 IMPRESSION: Normal x-ray examination of the chest. Electronically Signed: Eddie Rivera DO at 16:09 EDT Tel [phone], Service support , Chest X-Ray 07/30/20 13:25 IMPRESSION: New bilateral pulmonary infiltrates worse in the left lower lobe with a peripheral distribution. Follow-up is recommended. Electronically Signed: Jesus Kassi, at 14:00 EST , Service support , Chest CTA 07/30/20 13:37 IMPRESSION: Nonocclusive pulmonary emboli in the upper lobe pulmonary artery. Diffuse increased interstitial markings involving both lungs worse in the lower lobes with areas of confluence. Follow-up is recommended. Electronically Signed: Jesus Kassi, at 14:28 EST , Service support , Chest X-Ray 08/04/20 08:02 IMPRESSION: Since prior study, there has been progressive pulmonary infiltrates worse in the left lung. Electronically Signed: Jesus Solitario, at 10:34 EST , Service support , Chest X-Ray 08/05/20 04:30 IMPRESSION: Interval intubation and gastric tube placement. Persistent patchy bilateral airspace opacities. Electronically Signed: Nik Wakefield, at 5:11 EST Tel , Service support , Chest X-Ray 08/05/20 12:35 IMPRESSION: A right-sided internal jugular venous catheter has been placed. The tip is at the junction of the superior vena cava and right atrium. The remainder of the examination is unchanged. Electronically Signed: Jesus Solitario, at 12:56 EST , Service support , Medical Necessity - Tobacco Use Smoking Status: Former smoker Tobacco Use: Cigarettes Assessment/Plan All Active Problems (Last Reviewed 07/16/20 @ 23:[address] Richard Gaona MD) COVID-19 (Acute) Hypoxia (Acute) Hypokalemia (Acute) Respiratory insufficiency (Acute) RECOMMENDATIONS: 1. Continue current supportive measures with invasive mechanical ventilatory support. 2. Continue patient on assist control mode of mechanical ventilation and wean FiO2 and PEEP as tolerated. 3. Continue Levophed and wean to maintain a mean arterial pressure at or above 65 mmHg. 4. Continue empiric antimicrobials and Decadron. 5. Continue tube feeds as ordered. 6. Continue Lovenox twice daily. 7. Continue appropriate GI prophylaxis. 8. Stop Lasix given worsening renal insufficiency. IMPRESSIONS: 1. Acute hypoxemic respiratory failure secondary to COVID-19 pneumonia/pulmonary emboli The patient continues to be quite tenuous from a respiratory perspective with high oxygen requirement. The patient has already completed a treatment course of remdesivir and Decadron. She also received convalescent plasma. CTA chest obtained during this hospitalization did reveal small upper lobe pulmonary emboli. The patient remains on therapeutic Lovenox. Unfortunately, the patient did decompensate from a respiratory perspective and did require intubation. The patient was subsequently paralyzed for approximately 48 hours. Her paralytic has been discontinued and her sedation will be weaned over the course of today. Oxygenation status has improved over the last 48 hours. Plan to continue to wean FiO2 and PEEP as tolerated. 2. Distributive shock Improving. The patient did develop hemodynamic instability as a consequence of sedative medication use, requiring vasopressor initiation. Plan to continue Levophed to maintain a mean arterial pressure at or above 65 mmHg. 3. Acute kidney injury Suspect likely secondary to ischemic ATN in the setting of #1 and 2. Plan to continue current supportive measures, including vasopressor support to maintain hemodynamic stability. Continue to monitor urine output. No current indication for renal replacement therapy. Will discontinue IV diuretic regimen, given increasing creatinine noted this morning. 4. Advanced age/anxiety/hypothyroidism/hypertension/GERD Complicates care, management, recovery and prognosis. Continue current supportive measures. CODE status: Discussed CODE status at length including difference between FULL code, DNR-CCA and DNR-CC status. Following discussions about the differences in these status, patient's family requested DNR CCA CODE STATUS. TIME: 35 minutes of critical care time, independent of procedures, was spent addressing the patient's acute hypoxemic respiratory failure, COVID-19 pneumonia, pulmonary emboli, acute kidney injury, distributive shock, review of all data and collaboration with the care team. ([id number]) [id number]: [id number] Critical care first hour
[2020-08-08 06:42] LABS: Absolute Lymphocyte Count 1.12 X10^3/uL (0.83-4.51); Absolute Neutrophil Count 7.3 X10^3/uL (2.0-7.7); Basophil# 0.03 X10^3/uL; Basophil% 0.3 % (0-1); Eosinophil# 0.17 X10^3/uL; Eosinophils% 1.7 % (0-5); Hemoglobin 8.2 g/dL (12.0-15.0); Lymphocyte # 1.12 X10^3/ul (4.0); Lymphocyte % 11.3 % (19-41); Mean Corp Hgb Conc 30.4 g/dL (32-36); Mean Corpuscular Hgb 29.1 pg (27.0-32.0); Mean Corpuscular Volume 95.7 fL (81-99); Mean Platelet Vol. 11.5 fl (6.2-12.0); Monocyte% 10.1 % (0-10); NRBC Flagged by Analyzer 0.3 % (0-5); Neutrophil # 7.28 X10^3/uL (2.7-7.7); Neutrophil % 73.3 % (47-70); Platelet Count 390 K/mm3 (150-450); RBC Distribution Width CV 14.5 % (11.6-14.6); RBC Distribution Width SD 50.6 fl (35.1-43.9); Red Blood Count 2.82 M/mm3 (4.2-5.4); White Blood Count 9.9 K/mm3 (4.4-11.0)
[2020-08-08 06:51] LABS: Anion Gap 6 (5-15); BUN 63 mg/dL (7-18); BUN/Creat Ratio 29.3 RATIO (10-20); Calcium,Total 8.8 mg/dL (8.5-10.1); Chloride 110 mmol/L (98-107); Creatinine, Serum 2.15 mg/dL (0.55-1.02); EST Glomerular Filtration Rate 24 mL/min (>60); Est Glom Filt Rate - Afr Amer 30 mL/min (>60); Estimated Creatinine Clearance 22.53 ml/min; Glucose 101 mg/dL (74-106); Sodium Level 144 mmol/L (136-145)
--- NOTE | 2020-08-08 10:00 | PCM.PN.HOSP ---
Patient Problems: Active and Suspected Problems (Last Reviewed 07/16/20 @ 23:[address] Richard Gaona MD) COVID-19 (Acute) Hypoxia (Acute) Hypokalemia (Acute) Respiratory insufficiency (Acute) Subjective: No changes overnight. Her FiO2 is still at around 50% with a PEEP of 12 Vitals/I&O's: Vital Signs Temp Pulse Resp BP Pulse Ox 98.5 F 47 L 16 124/64 H 92 08/08/20 09:00 08/08/20 09:00 08/08/20 09:00 08/08/20 09:00 08/08/20 09:00 Oxygen Flow Rate (L/min) 60 Oxygen Delivery Method Mechanical Ventilator Weight: 175 lb 14.862 oz Body Mass Index (BMI) 28.9 Intake and Output for Last 24 Hours 08/06/20 08/07/20 08/08/20 23:59 23:59 23:59 Intake Total 2446.68 / 2619.68 2347.09 / 2828.34 1402.23 / 1402.23 Output Total 865 / 895 785 / 795 45 / 45 Balance 1581.68 / 1724.68 1562.09 / 2033.34 1357.23 / 1357.23 General: - - Intubated and sedated HEENT: Atraumatic, PERRLA, Normocephalic Oral: Moist Mucosa Neck: Supple, No JVD Lungs: No rhonchi, No wheeze, No rales, Diminished Cardiovascular: Regular Rhythm, Normal S1, Normal S2, No murmurs, Bradycardic Abdomen: Soft, Non Tender, Non-Distended, No Hepato-splenomegaly Extremities: No edema Skin: No rashes, No breakdown Neurological: - - Intubated and sedated and paralyzed Psych/Mental Status: - - Intubated and sedated Microbiology Past 72 Hours 08/05/20 07:38 Sputum, Induced/Lukens Gram Stain - Final 08/05/20 07:38 Sputum, Induced/Lukens Respiratory Culture - Final Mixed normal respiratory olivia. No Streptococcus pneumoniae, beta-hemolytic Streptococcus or Staphylococcus aureus isolated. 08/01/20 17:52 Blood Culture (Wb) - Right Hand Blood Culture - Final No growth in 5 days. 08/01/20 17:45 Blood Culture (Wb) - Arm Right Blood Culture - Final No growth in 5 days. 07/30/20 17:07 Blood Culture (Wb) - Anticubital Right Blood Culture - Final No growth in 5 days. 07/30/20 17:15 Blood Culture (Wb) - Right Hand Blood Culture - Final No growth in 5 days. Laboratory Results 08/08/20 03:30: WBC 9.9, RBC 2.82 L, Hgb 8.2 L, Hct 27.0 L, MCV 95.7, MCH 29.1, MCHC 30.4 L, RDW Std Deviation 50.6 H, RDW Coeff of Brittanie 14.5, Plt Count 390, MPV 11.5, Immature Gran % (Auto) 3.300 H, Neut % (Auto) 73.3 H, Lymph % (Auto) 11.3 L, [place] % (Auto) 10.1 H, Eos % (Auto) 1.7, Baso % (Auto) 0.3, Absolute Neuts (auto) 7.3, Absolute Lymphs (auto) 1.12, Nucleated RBC % 0.3 08/08/20 03:30: Sodium 144, Potassium 4.0, Chloride 110 H, Carbon Dioxide 28.0, Anion Gap 6, BUN 63 H, Creatinine 2.15 H, Estim Creat Clear Calc 22.53, Est GFR (MDRD) Af Amer 30 L, Est GFR (MDRD) Non-Af 24 L, BUN/Creatinine Ratio 29.3 H, Glucose 101, Calcium 8.8 Current Medications Acetaminophen (Acetaminophen 650 Mg/20 Ml Udc) 650 mg GT Q6H PRN PRN PRN Reason: Pain Score 1-10/Temp > 100.7 F Albuterol Sulfate (Albuterol 2.5 Mg/3 Ml Vial.Neb.) 2.5 mg INHALATION Q2H PRN PRN PRN Reason: Dyspnea, wheezing Chlorhexidine Gluconate (Chlorhexidine 15 Ml) 15 ml PO BID [facility] Last Admin: 08/07/20 20:29 Dose: 15 ml Documented by: Dexamethasone (Dexamethasone 2 Mg Tablet) 6 mg GT DAILY [facility] Stop: 08/14/20 10:01 Last Admin: 08/07/20 11:06 Dose: 6 mg Documented by: Enoxaparin Sodium (Enoxaparin 80 Mg/0.8 Ml Syringe) 80 mg SC BID [facility] Last Admin: 08/07/20 20:28 Dose: 80 mg Documented by: Meropenem 1 gm/ Sodium (Chloride) 120 mls @ 33 mls/hr IV Q8 [facility] Last Infusion: 08/08/20 07:00 Dose: 33 mls/hr Documented by: Fentanyl Citrate 1,000 mcg/ (Sodium Chloride) 100 mls @ 20 mls/hr CONT INF .Q5H [facility]; Protocol Last Admin: 08/08/20 09:02 Dose: 200 mcg/hr, 20 mls/hr Documented by: Propofol (Diprivan) 1,000 mg in 100 mls @ 16.38 mls/hr CONT INF .Q6H7M [facility]; Protocol Last Titration: 08/08/20 09:15 Dose: 30 mcg/kg/min, 14 mls/hr Documented by: Famotidine 20 mg/ Sodium (Chloride) 10 mls @ 300 mls/hr IV Q12 [facility] Last Infusion: 08/07/20 22:36 Dose: Infused Documented by: Norepinephrine Bitartrate 8 mg (/ Sodium Chloride) 250 mls @ 9.375 mls/hr CONT INF .[id number] [facility]; Protocol Last Titration: 08/08/20 09:00 Dose: 1 mcg/min, 1.9 mls/hr Documented by: Cisatracurium Besylate 100 mg/ (Sodium Chloride) 250 mls @ 23.4 mls/hr CONT INF .[id number] [facility]; Protocol Last Titration: 08/08/20 08:26 Dose: Infused Documented by: Enteral Nutritional Formula (Vital Af 1.2 Edwardo Liquid) 1,000 mls @ 60 mls/hr GT .[id number] [facility] Last Admin: 08/08/20 03:43 Dose: 60 mls/hr Documented by: Levothyroxine Sodium (Levothyroxine 25 Mcg Tablet) 25 mcg GT DAILY [facility] Last Admin: 08/07/20 11:06 Dose: 25 mcg Documented by: Nystatin (Nystatin 500,000 Unit/5 Ml Udc) 500,000 unit PO 4X/DAY [facility] Last Admin: 08/07/20 20:29 Dose: 500,000 unit Documented by: Ondansetron HCl (Ondansetron 4 Mg/2 Ml Vial) 4 mg IV Q6H PRN PRN PRN Reason: NAUSEA/VOMITING Last Admin: 08/04/20 17:35 Dose: 4 mg Documented by: Sodium Chloride (0.9% Saline Lock 10 Ml Syringe) 10 - 40 ml IV UD PRN PRN Reason: SALINE FLUSH Last Admin: 08/07/20 20:56 Dose: 10 ml Documented by: STROKE Vital Signs/Narrative: Vital Signs Temp Pulse Resp BP Pulse Ox 08/08/20 09:00 98.5 F 47 L 16 124/64 H 92 08/08/20 08:00 98.5 F 46 L 16 94/53 L 95 08/08/20 07:21 47 L 18 96 08/08/20 07:00 98.3 F 45 L 16 92/53 L 94 Medical Necessity - Tobacco Use Smoking Status: Former smoker Tobacco Use: Cigarettes Assessment/Plan All Active Problems (Last Reviewed 07/16/20 @ 23:[address] Richard Gaona MD) COVID-19 (Acute) Hypoxia (Acute) Hypokalemia (Acute) Respiratory insufficiency (Acute) 1. Acute hypoxic respiratory failure secondary to COVID-19 pneumonia/PE/viral gastroenteritis/distributive shock/JARRETT -She is currently intubated, sedated, but off paralysis -Initially she did have blood pressures that necessitated Levophed which she is still on she is 19 L positive, however her creatinine is rising and therefore her Lasix had to be discontinued -We will continue with therapeutic Lovenox -She has completed remdesivir as well as Decadron -Creatinine greg to 2.15 2. HTN -Her blood pressure medications are on hold given the need for vasopressors 3. Hypothyroidism -Stable -Continue with Synthroid 4. GERD -Stable -Continue with PPI DVT: Therapeutic Lovenox Inpatient E&M: [id number] [facility] Hosp L2
[2020-08-08] MEDS: Propofol 10MG/Ml 1,000 MG/100 ML Bottle 14 MG CONT INF (10:12)
[2020-08-08] MEDS: dexAMETHasone 2 MG TABLET 6 MG GT (11:02)
[2020-08-08] MEDS: Chlorhexidine 15 ML PO ×2 (11:02→20:17)
[2020-08-08] MEDS: Famotidine 200 MG/20 ML MDV 20 MG in 0.9% Normal Saline (Pres. free 8 ML 300 MG IV ×2 (11:03→20:22)
[2020-08-08] MEDS: Levothyroxine 25 MCG TABLET GT (11:03)
[2020-08-08] MEDS: Enoxaparin 80 MG/0.8 ML Syringe SC ×2 (11:04→20:16)
[2020-08-08] MEDS: NYSTATIN 500,000 UNIT/5 ML UDC 500000 UNIT PO ×4 (11:04→20:18)
[2020-08-08] MEDS: 0.9% Saline Lock 10 ML Syringe IV (20:16)
[2020-08-09] VITALS (57 sets, daily range): BP systolic 83–154; BP diastolic 45–86; PULSE 46–106; RESP 13–21; TEMP 36.4–37.8; O2SAT 88–98
[2020-08-09 03:59] LABS: Absolute Lymphocyte Count 1.01 X10^3/uL (0.83-4.51); Absolute Neutrophil Count 6.5 X10^3/uL (2.0-7.7); Basophil# 0.05 X10^3/uL; Basophil% 0.6 % (0-1); Eosinophil# 0.44 X10^3/uL; Eosinophils% 4.9 % (0-5); Hematocrit 30.6 % (37-47); Hemoglobin 9.7 g/dL (12.0-15.0); Lymphocyte # 1.01 X10^3/ul (4.0); Lymphocyte % 11.3 % (19-41); Mean Corp Hgb Conc 31.7 g/dL (32-36); Mean Corpuscular Hgb 29.4 pg (27.0-32.0); Mean Corpuscular Volume 92.7 fL (81-99); Mean Platelet Vol. 12.1 fl (6.2-12.0); Monocyte# 0.62 X10^3/uL; Monocyte% 6.9 % (0-10); NRBC Flagged by Analyzer 0.2 % (0-5); Neutrophil # 6.46 X10^3/uL (2.7-7.7); Platelet Count 431 K/mm3 (150-450); RBC Distribution Width CV 14.7 % (11.6-14.6); RBC Distribution Width SD 49.1 fl (35.1-43.9)
[2020-08-09] MEDS: Propofol 10MG/Ml 1,000 MG/100 ML Bottle 18.7 MG CONT INF ×3 (05:11→12:00)
[2020-08-09 05:15] LABS: Anion Gap 4 (5-15); BUN 47 mg/dL (7-18); BUN/Creat Ratio 47.1 RATIO (10-20); Calcium,Total 8.4 mg/dL (8.5-10.1); Chloride 112 mmol/L (98-107); EST Glomerular Filtration Rate 59 mL/min (>60); Est Glom Filt Rate - Afr Amer 72 mL/min (>60); Estimated Creatinine Clearance 48.43 ml/min; Glucose 128 mg/dL (74-106); Potassium 3.5 mmol/L (3.5-5.1); Sodium Level 146 mmol/L (136-145)
[2020-08-09] MEDS: TITRATION PARAMETER CHANGE 1 EACH IV (07:38)
[2020-08-09] MEDS: dexAMETHasone 2 MG TABLET 6 MG GT (08:33)
[2020-08-09] MEDS: Famotidine 200 MG/20 ML MDV 20 MG in 0.9% Normal Saline (Pres. free 8 ML 300 MG IV ×2 (08:33→20:02)
[2020-08-09] MEDS: Chlorhexidine 15 ML PO ×2 (08:33→20:01)
[2020-08-09] MEDS: NYSTATIN 500,000 UNIT/5 ML UDC 500000 UNIT PO ×4 (08:33→20:03)
[2020-08-09] MEDS: Levothyroxine 25 MCG TABLET GT (08:33)
[2020-08-09] MEDS: 0.9% Saline Lock 10 ML Syringe IV ×3 (08:37→20:02)
--- NOTE | 2020-08-09 10:04 | PN_ITS ---
Subjective: Patient did okay overnight. Patient continues to require Levophed to maintain blood pressures. Patient was found to have an obstructed Gr and this was replaced. Patient also has been tolerating tube feeds. Respiratory reports more double triggering with lightening of sedation, but PEEP has been able to be lowered. Did discuss with daughter during ICU rounds about patient's condition. General: - - Intubated and sedated. RASS -2. Appears older than stated age. HEENT: Atraumatic, PERRLA, EOMI, Normocephalic, - - Slight scleral injection without icterus Oral: Moist Mucosa, No Gingival or Mucosal Lesions/ Ulcerations Neck: Supple, No JVD, No Nodes, Trachea Midline, - - Central line is clean, dry and intact Lungs: No rhonchi, No wheeze, No rales, Diminished Cardiovascular: Normal S1, Normal S2, No murmurs, Bradycardic, No rub noted, No Gallop Abdomen: Bowel Sounds Present, Soft, Non Tender, Non-Distended Extremities: No clubbing, No cyanosis, Edema Skin: No rashes, No breakdown Musculoskeletal: No Tenderness to Palpation of Joints or Extremities Lymphatic: No Cervical, Supraclavicular, or Inguinal Adenopathy Neurological: Cranial nerves II-XII grossly intact - No focal neurologic deficits. Very little spontaneous movement. Psych/Mental Status: Flat Affect Vital Signs Temp Pulse Resp BP Pulse Ox 37.3 C H 72 21 H 87/58 L 92 08/09/20 07:00 08/09/20 07:31 08/09/20 07:31 08/09/20 07:00 08/09/20 07:31 Oxygen Flow Rate (L/min) 60 Oxygen Delivery Method Mechanical Ventilator Weight: 78.7 kg Body Mass Index (BMI) 28.9 Intake and Output for Last 24 Hours 08/07/20 08/08/20 08/09/20 23:59 23:59 23:59 Intake Total 2347.09 / 2828.34 2814.55 / 2951.40 956.01 / 956.01 Output Total 785 / 795 2335 / 2335 1075 / 1075 Balance 1562.09 / 2033.34 479.55 / 616.40 -118.99 / -118.99 Labs (Last 48 Hours) 08/08/20 08/08/20 08/09/20 03:30 03:30 03:15 WBC 9.9 9.0 RBC 2.82 L 3.30 L Hgb 8.2 L 9.7 L Hct 27.0 L 30.6 L MCV 95.7 92.7 MCH 29.1 29.4 MCHC 30.4 L 31.7 L RDW Std Deviation 50.6 H 49.1 H RDW Coeff of Brittanie 14.5 14.7 H Plt Count 390 431 MPV 11.5 12.1 H Immature Gran % (Auto) 3.300 H 4.300 H Neut % (Auto) 73.3 H 72.0 H Lymph % (Auto) 11.3 L 11.3 L [place] % (Auto) 10.1 H 6.9 Eos % (Auto) 1.7 4.9 Baso % (Auto) 0.3 0.6 Absolute Neuts (auto) 7.3 6.5 Absolute Lymphs (auto) 1.12 1.01 Nucleated RBC % 0.3 0.2 Sodium 144 Potassium 4.0 Chloride 110 H Carbon Dioxide 28.0 Anion Gap 6 BUN 63 H Creatinine 2.15 H Estim Creat Clear Calc 22.53 Est GFR (MDRD) Af Amer 30 L Est GFR (MDRD) Non-Af 24 L BUN/Creatinine Ratio 29.3 H Glucose 101 Calcium 8.8 08/09/20 08/09/20 03:15 04:00 WBC RBC Hgb Hct MCV MCH MCHC RDW Std Deviation RDW Coeff of Brittanie Plt Count MPV Immature Gran % (Auto) Neut % (Auto) Lymph % (Auto) [place] % (Auto) Eos % (Auto) Baso % (Auto) Absolute Neuts (auto) Absolute Lymphs (auto) Nucleated RBC % Sodium Cancelled 146 H Potassium Cancelled 3.5 Chloride Cancelled 112 H Carbon Dioxide Cancelled 30.0 Anion Gap Cancelled 4 L BUN Cancelled 47 H Creatinine Cancelled 1.00 Estim Creat Clear Calc Cancelled 48.43 Est GFR (MDRD) Af Amer Cancelled 72 Est GFR (MDRD) Non-Af Cancelled 59 L BUN/Creatinine Ratio Cancelled 47.1 H Glucose Cancelled 128 H Calcium Cancelled 8.4 L Microbiology 08/05/20 07:38 Sputum, Induced/Lukens Gram Stain - Final 08/05/20 07:38 Sputum, Induced/Lukens Respiratory Culture - Final Mixed normal respiratory olivia. No Streptococcus pneumoniae, beta-hemolytic Streptococcus or Staphylococcus aureus isolated. 08/01/20 17:52 Blood Culture (Wb) - Right Hand Blood Culture - Final No growth in 5 days. 08/01/20 17:45 Blood Culture (Wb) - Arm Right Blood Culture - Final No growth in 5 days. Medical Necessity - Tobacco Use Smoking Status: Former smoker Tobacco Use: Cigarettes Assessment/Plan All Active Problems (Last Reviewed 07/16/20 @ 23:[address] Richard Gaona MD) COVID-19 (Acute) Hypoxia (Acute) Hypokalemia (Acute) Respiratory insufficiency (Acute) RECOMMENDATIONS: 1. Continue current supportive measures with invasive mechanical ventilatory support. 2. Continue patient on assist control mode of mechanical ventilation and wean FiO2 and PEEP as tolerated. 3. Continue Levophed and wean to maintain a mean arterial pressure at or above 65 mmHg. 4. Continue empiric antimicrobials and Decadron. 5. Attempt to lighten sedation 6. Continue therapeutic Lovenox twice daily. 7. Continue appropriate GI prophylaxis. 8. Stop Lasix given worsening renal insufficiency. IMPRESSIONS: 1. Acute hypoxemic respiratory failure secondary to COVID-19 pneumonia/pulmonary emboli The patient continues to be quite tenuous from a respiratory perspective with high oxygen requirement. The patient has already completed a treatment course of remdesivir and Decadron. She also received convalescent plasma. CTA chest obtained during this hospitalization did reveal small upper lobe pulmonary emboli. The patient remains on therapeutic Lovenox. Unfortunately, the patient did decompensate from a respiratory perspective and did require intubation. The patient was subsequently paralyzed for approximately 48 hours. Her paralytic has been discontinued and her sedation will be weaned over the course of today. We will continue to attempt to decrease sedation. Transition to Precedex therapy is limited by bradycardia. 2. Distributive shock Improving. The patient did develop hemodynamic instability as a consequence of sedative medication use, requiring vasopressor initiation. Plan to continue Levophed to maintain a mean arterial pressure at or above 65 mmHg. Hopefully this will improve as propofol requirements are decreased. 3. Acute kidney injury Suspect likely secondary to ischemic ATN in the setting of #1, 2 and possible postobstructive pathology given clogged Gr. Plan to continue current supportive measures, including vasopressor support to maintain hemodynamic stability. Continue to monitor urine output. No current indication for renal replacement therapy. Will challenge with low-dose Lasix now that Gr is patent 4. Advanced age/anxiety/hypothyroidism/hypertension/GERD Complicates care, management, recovery and prognosis. Continue current supportive measures. CODE status: Discussed CODE status at length including difference between FULL code, DNR-CCA and DNR-CC status. Following discussions about the differences in these status, patient's family requested DNR CCA CODE STATUS. TIME: 40 minutes of critical care time, independent of procedures, was spent addressing the patient's acute hypoxemic respiratory failure, COVID-19 pneumonia, pulmonary emboli, acute kidney injury, distributive shock, review of all data and collaboration with the care team. (7 AM to 8 AM) [id number]: [id number] Critical care first hour
[2020-08-09] MEDS: Furosemide 20 MG/2 ML VIAL IV (11:48)
[2020-08-09] MEDS: Enoxaparin 80 MG/0.8 ML Syringe SC ×2 (11:48→20:02)
[2020-08-09] MEDS: Vital AF 1.2 Cal Liquid 1,000 ML 60 ML GT ×2 (11:50→18:16)
[2020-08-09 12:30] LABS: Bedside Glucose 127 mg/dL (70-110)
--- NOTE | 2020-08-09 16:41 | PCM.PN.HOSP ---
Patient Problems: Active and Suspected Problems (Last Reviewed 07/16/20 @ 23:[address] Richard Gaona MD) COVID-19 (Acute) Hypoxia (Acute) Hypokalemia (Acute) Respiratory insufficiency (Acute) Reason for Visit: COVID 19 Subjective: Still on vent. Vitals/I&O's: Vital Signs Temp Pulse Resp BP Pulse Ox 37.7 C H 57 L 15 124/68 H 96 08/09/20 16:00 08/09/20 16:00 08/09/20 16:00 08/09/20 16:30 08/09/20 16:00 Oxygen Flow Rate (L/min) 60 Oxygen Delivery Method Mechanical Ventilator Weight: 78.7 kg Body Mass Index (BMI) 28.9 Intake and Output for Last 24 Hours 08/07/20 08/08/20 08/09/20 23:59 23:59 23:59 Intake Total 2347.09 / 2828.34 2814.55 / 2951.40 1764.27 / 1764.27 Output Total 785 / 795 2335 / 2335 3400 / 3400 Balance 1562.09 / 2033.34 479.55 / 616.40 -1635.73 / -1635.73 General: - - intubated and sedated. HEENT: Atraumatic, Normocephalic Oral: Moist Mucosa Neck: No Nodes, Thyroid Normal Size and Texture Lungs: - - coarse breath sounds bilaterally. Cardiovascular: Regular rate, Regular Rhythm, Normal S1, Normal S2, No murmurs Abdomen: Bowel Sounds Present, Soft, Non Tender, Non-Distended, No Hepato-splenomegaly Extremities: No edema, No Calf Tenderness Skin: No rashes, No breakdown Psych/Mental Status: Normal Affect, Appropriate Microbiology Past 72 Hours 08/05/20 07:38 Sputum, Induced/Lukens Gram Stain - Final 08/05/20 07:38 Sputum, Induced/Lukens Respiratory Culture - Final Mixed normal respiratory olivia. No Streptococcus pneumoniae, beta-hemolytic Streptococcus or Staphylococcus aureus isolated. 08/01/20 17:52 Blood Culture (Wb) - Right Hand Blood Culture - Final No growth in 5 days. 08/01/20 17:45 Blood Culture (Wb) - Arm Right Blood Culture - Final No growth in 5 days. Laboratory Results 08/09/20 03:15: WBC 9.0, RBC 3.30 L, Hgb 9.7 L, Hct 30.6 L, MCV 92.7, MCH 29.4, MCHC 31.7 L, RDW Std Deviation 49.1 H, RDW Coeff of Brittanie 14.7 H, Plt Count 431, MPV 12.1 H, Immature Gran % (Auto) 4.300 H, Neut % (Auto) 72.0 H, Lymph % (Auto) 11.3 L, [place] % (Auto) 6.9, Eos % (Auto) 4.9, Baso % (Auto) 0.6, Absolute Neuts (auto) 6.5, Absolute Lymphs (auto) 1.01, Nucleated RBC % 0.2 08/09/20 03:15: Sodium Cancelled, Potassium Cancelled, Chloride Cancelled, Carbon Dioxide Cancelled, Anion Gap Cancelled, BUN Cancelled, Creatinine Cancelled, Estim Creat Clear Calc Cancelled, Est GFR (MDRD) Af Amer Cancelled, Est GFR (MDRD) Non-Af Cancelled, BUN/Creatinine Ratio Cancelled, Glucose Cancelled, Calcium Cancelled 08/09/20 04:00: Sodium 146 H, Potassium 3.5, Chloride 112 H, Carbon Dioxide 30.0, Anion Gap 4 L, BUN 47 H, Creatinine 1.00, Estim Creat Clear Calc 48.43, Est GFR (MDRD) Af Amer 72, Est GFR (MDRD) Non-Af 59 L, BUN/Creatinine Ratio 47.1 H, Glucose 128 H, Calcium 8.4 L 08/09/20 11:35: POC Glucose 127 H Current Medications Acetaminophen (Acetaminophen 650 Mg/20 Ml [facility]) 650 mg GT Q6H PRN PRN PRN Reason: Pain Score 1-10/Temp > 100.7 F Albuterol Sulfate (Albuterol 2.5 Mg/3 Ml Vial.Neb.) 2.5 mg INHALATION Q2H PRN PRN PRN Reason: Dyspnea, wheezing Chlorhexidine Gluconate (Chlorhexidine 15 Ml) 15 ml PO BID [facility] Last Admin: 08/09/20 08:33 Dose: 15 ml Documented by: Dexamethasone (Dexamethasone 2 Mg Tablet) 6 mg GT DAILY [facility] Stop: 08/14/20 10:01 Last Admin: 08/09/20 08:33 Dose: 6 mg Documented by: Enoxaparin Sodium (Enoxaparin 80 Mg/0.8 Ml Syringe) 80 mg SC BID [facility] Last Admin: 08/09/20 11:48 Dose: 80 mg Documented by: Meropenem 1 gm/ Sodium (Chloride) 120 mls @ 33 mls/hr IV Q8 [facility] Last Admin: 08/09/20 15:56 Dose: 33 mls/hr Documented by: Fentanyl Citrate 1,000 mcg/ (Sodium Chloride) 100 mls @ 20 mls/hr CONT INF .Q5H [facility]; Protocol Last Admin: 08/09/20 15:05 Dose: 175 mcg/hr, 17.5 mls/hr Documented by: Propofol (Diprivan) 1,000 mg in 100 mls @ 16.38 mls/hr CONT INF .Q6H7M [facility]; Protocol Last Titration: 08/09/20 16:30 Dose: 20 mcg/kg/min, 9.4 mls/hr Documented by: Famotidine 20 mg/ Sodium (Chloride) 10 mls @ 300 mls/hr IV Q12 [facility] Last Infusion: 08/09/20 08:35 Dose: Infused Documented by: Norepinephrine Bitartrate 8 mg (/ Sodium Chloride) 250 mls @ 9.375 mls/hr CONT INF .[id number] [facility]; Protocol Last Titration: 08/09/20 16:30 Dose: 3 mcg/min, 5.6 mls/hr Documented by: Enteral Nutritional Formula (Vital Af 1.2 Edwardo Liquid) 1,000 mls @ 60 mls/hr GT .[id number] [facility] Last Admin: 08/09/20 11:50 Dose: 60 mls/hr Documented by: Levothyroxine Sodium (Levothyroxine 25 Mcg Tablet) 25 mcg GT DAILY [facility] Last Admin: 08/09/20 08:33 Dose: 25 mcg Documented by: Nystatin (Nystatin 500,000 Unit/5 Ml Udc) 500,000 unit PO 4X/DAY [facility] Last Admin: 08/09/20 15:57 Dose: 500,000 unit Documented by: Ondansetron HCl (Ondansetron 4 Mg/2 Ml Vial) 4 mg IV Q6H PRN PRN PRN Reason: NAUSEA/VOMITING Last Admin: 08/04/20 17:35 Dose: 4 mg Documented by: Sodium Chloride (0.9% Saline Lock 10 Ml Syringe) 10 - 40 ml IV UD PRN PRN Reason: SALINE FLUSH Last Admin: 08/09/20 11:50 Dose: 20 ml Documented by: STROKE Vital Signs/Narrative: Vital Signs Temp Pulse Resp BP Pulse Ox 08/09/20 16:30 124/68 H 08/09/20 16:15 125/66 H 08/09/20 16:00 37.7 C H 57 L 15 115/65 96 08/09/20 15:45 111/66 08/09/20 15:30 120/76 08/09/20 15:15 102/65 08/09/20 15:00 37.8 C H 70 14 103/59 L 96 08/09/20 14:45 115/60 08/09/20 14:30 102/57 L 08/09/20 14:15 104/59 L 08/09/20 14:00 37.8 C H 81 13 106/57 L 96 08/09/20 13:45 110/65 08/09/20 13:30 89/45 L 08/09/20 13:15 95/50 L 08/09/20 13:00 37.8 C H 59 L 14 92/52 L 95 08/09/20 12:45 83/49 L Medical Necessity - Tobacco Use Smoking Status: Former smoker Tobacco Use: Cigarettes Assessment/Plan All Active Problems (Last Reviewed 07/16/20 @ 23:[address] Richard Gaona MD) COVID-19 (Acute) Hypoxia (Acute) Hypokalemia (Acute) Respiratory insufficiency (Acute) 1. COVID 19 Positive on 07/14/2020 Completed dexamethasone, remdesivir, and convalescent plasma back on Dexamethasone 2. Acute hypoxic respiratory failure 2/2 COVID, PE, ALI, PNA Off paralytics on 50% Fio2 on Meropenem 3. JARRETT resolved 2/2 obstructed catheter 4. Septic shock on norepinephrine 5. PE enoxaparin 6. Prognosis: guarded DNRCCA anticipate continue prolonged recovery, though may not have much physiologic reserve to endure another medical insult. Inpatient E&M: [id number] Subs Hosp L2
[2020-08-09] MEDS: Propofol 10MG/Ml 1,000 MG/100 ML Bottle 4.7 MG CONT INF (18:30)
[2020-08-09 18:51] LABS: Bedside Glucose 146 mg/dL (70-110)
--- NOTE | 2020-08-09 20:08 | PN.ID_ITS ---
Patient Problems: Active and Suspected Problems (Last Reviewed 07/16/20 @ 23:[address] Richard Gaona MD) COVID-19 (Acute) Hypoxia (Acute) Hypokalemia (Acute) Respiratory insufficiency (Acute) Subjective: Off paralytics, PEEP and sats much improved, no fever - Physical Exam Vitals/I&O's: Vital Signs Temp Pulse Resp BP Pulse Ox 99.6 F H 87 16 117/83 H 91 08/09/20 19:00 08/09/20 19:00 08/09/20 19:00 08/09/20 19:00 08/09/20 19:00 Oxygen Flow Rate (L/min) 60 Oxygen Delivery Method Mechanical Ventilator Weight: 78.7 kg Body Mass Index (BMI) 28.9 Intake and Output for Last 24 Hours 08/07/20 08/08/20 08/09/20 23:59 23:59 23:59 Intake Total 2347.09 / 2828.34 2814.55 / 2951.40 2121.31 / 2121.31 Output Total 785 / 795 2335 / 2335 3750 / 3750 Balance 1562.09 / 2033.34 479.55 / 616.40 -1628.69 / -1628.69 General: No apparent distress Lungs: Diminished Cardiovascular: Regular rate, Regular Rhythm Abdomen: Soft, Non Tender, Non-Distended Skin: No rashes Microbiology Past 72 Hours 08/05/20 07:38 Sputum, Induced/Lukens Gram Stain - Final 08/05/20 07:38 Sputum, Induced/Lukens Respiratory Culture - Final Mixed normal respiratory olivia. No Streptococcus pneumoniae, beta-hemolytic Streptococcus or Staphylococcus aureus isolated. 08/01/20 17:52 Blood Culture (Wb) - Right Hand Blood Culture - Final No growth in 5 days. 08/01/20 17:45 Blood Culture (Wb) - Arm Right Blood Culture - Final No growth in 5 days. Laboratory Results 08/09/20 03:15: WBC 9.0, RBC 3.30 L, Hgb 9.7 L, Hct 30.6 L, MCV 92.7, MCH 29.4, MCHC 31.7 L, RDW Std Deviation 49.1 H, RDW Coeff of Brittanie 14.7 H, Plt Count 431, MPV 12.1 H, Immature Gran % (Auto) 4.300 H, Neut % (Auto) 72.0 H, Lymph % (Auto) 11.3 L, [place] % (Auto) 6.9, Eos % (Auto) 4.9, Baso % (Auto) 0.6, Absolute Neuts (auto) 6.5, Absolute Lymphs (auto) 1.01, Nucleated RBC % 0.2 08/09/20 03:15: Sodium Cancelled, Potassium Cancelled, Chloride Cancelled, Carbon Dioxide Cancelled, Anion Gap Cancelled, BUN Cancelled, Creatinine Cancelled, Estim Creat Clear Calc Cancelled, Est GFR (MDRD) Af Amer Cancelled, Est GFR (MDRD) Non-Af Cancelled, BUN/Creatinine Ratio Cancelled, Glucose Cancelled, Calcium Cancelled 08/09/20 04:00: Sodium 146 H, Potassium 3.5, Chloride 112 H, Carbon Dioxide 30.0, Anion Gap 4 L, BUN 47 H, Creatinine 1.00, Estim Creat Clear Calc 48.43, Est GFR (MDRD) Af Amer 72, Est GFR (MDRD) Non-Af 59 L, BUN/Creatinine Ratio 47.1 H, Glucose 128 H, Calcium 8.4 L 08/09/20 11:35: POC Glucose 127 H 08/09/20 18:13: POC Glucose 146 H Current Medications Acetaminophen (Acetaminophen 650 Mg/20 Ml Udc) 650 mg GT Q6H PRN PRN PRN Reason: Pain Score 1-10/Temp > 100.7 F Albuterol Sulfate (Albuterol 2.5 Mg/3 Ml Vial.Neb.) 2.5 mg INHALATION Q2H PRN PRN PRN Reason: Dyspnea, wheezing Chlorhexidine Gluconate (Chlorhexidine 15 Ml) 15 ml PO BID [facility] Last Admin: 08/09/20 20:01 Dose: 15 ml Documented by: Dexamethasone (Dexamethasone 2 Mg Tablet) 6 mg GT DAILY [facility] Stop: 08/14/20 10:01 Last Admin: 08/09/20 08:33 Dose: 6 mg Documented by: Enoxaparin Sodium (Enoxaparin 80 Mg/0.8 Ml Syringe) 80 mg SC BID [facility] Last Admin: 08/09/20 20:02 Dose: 80 mg Documented by: Meropenem 1 gm/ Sodium (Chloride) 120 mls @ 33 mls/hr IV Q8 [facility] Last Infusion: 08/09/20 20:03 Dose: Infused Documented by: Fentanyl Citrate 1,000 mcg/ (Sodium Chloride) 100 mls @ 20 mls/hr CONT INF .Q5H [facility]; Protocol Last Titration: 08/09/20 19:00 Dose: 150 mcg/hr, 15 mls/hr Documented by: Propofol (Diprivan) 1,000 mg in 100 mls @ 16.527 mls/hr CONT INF .Q6H4M [facility]; Protocol Last Titration: 08/09/20 19:00 Dose: 10 mcg/kg/min, 4.7 mls/hr Documented by: Famotidine 20 mg/ Sodium (Chloride) 10 mls @ 300 mls/hr IV Q12 [facility] Last Admin: 08/09/20 20:02 Dose: 300 mls/hr Documented by: Norepinephrine Bitartrate 8 mg (/ Sodium Chloride) 250 mls @ 9.375 mls/hr CONT INF .[id number] [facility]; Protocol Last Titration: 08/09/20 19:00 Dose: 0 mcg/min, 0 mls/hr Documented by: Enteral Nutritional Formula (Vital Af 1.2 Edwardo Liquid) 1,000 mls @ 60 mls/hr GT .[id number] [facility] Last Admin: 08/09/20 18:16 Dose: 60 mls/hr Documented by: Levothyroxine Sodium (Levothyroxine 25 Mcg Tablet) 25 mcg GT DAILY [facility] Last Admin: 08/09/20 08:33 Dose: 25 mcg Documented by: Nystatin (Nystatin 500,000 Unit/5 Ml Udc) 500,000 unit PO 4X/DAY [facility] Last Admin: 08/09/20 20:03 Dose: 500,000 unit Documented by: Ondansetron HCl (Ondansetron 4 Mg/2 Ml Vial) 4 mg IV Q6H PRN PRN PRN Reason: NAUSEA/VOMITING Last Admin: 08/04/20 17:35 Dose: 4 mg Documented by: Sodium Chloride (0.9% Saline Lock 10 Ml Syringe) 10 - 40 ml IV UD PRN PRN Reason: SALINE FLUSH Last Admin: 08/09/20 20:02 Dose: 10 ml Documented by: Medical Necessity - Tobacco Use Smoking Status: Former smoker Tobacco Use: Cigarettes Route of nutrition/ use of supplements: [] Nutritional Intake: [] IV Site: [] Gr Catheter: [] - Assessment/Plan Antibiotics: [] Assessment/Plan: [] Active and Suspected Problems (Last Reviewed 07/16/20 @ 23:[address] Richard Gaona MD) COVID-19 (Acute) Hypoxia (Acute) Hypokalemia (Acute) Respiratory insufficiency (Acute) On dex, completed remdesivir. Got plasma 07/19. 07/30 felt worse with fever overnight, high O2 reqs. Started on empiric vanc/zosyn. Cxs neg, CT showed PE, and PCT was less than 0.2. Stopped vanc 08/01, stopped zosyn 08/02. Now on vent, empiric gisella started 08/04, paralyzed, pressor. O2 and PEEP much better. Off paralytics. Will follow
--- NOTE | 2020-08-09 21:05 | NURSING ---
Pt noted to be moving upper body, attempting to sit up higher in bed; pt does not follow commands but is moving all extremities;HR 120s and SBP 170s. ETT sxd for lg amt manzo mucus and oral sxn for copious cream secretions. Propofol increased to 15mcg.
[2020-08-10] VITALS (31 sets, daily range): BP systolic 128–163; BP diastolic 72–91; PULSE 69–107; RESP 14–29; TEMP 36.7–37.8; O2SAT 88–97
[2020-08-10] MEDS: Propofol 10MG/Ml 1,000 MG/100 ML Bottle 7.1 MG CONT INF (00:34)
[2020-08-10 05:21] LABS: Hematocrit 32.1 % (37-47); Hemoglobin 10.4 g/dL (12.0-15.0); Mean Corp Hgb Conc 32.4 g/dL (32-36); Mean Corpuscular Hgb 29.1 pg (27.0-32.0); Mean Corpuscular Volume 89.7 fL (81-99); Mean Platelet Vol. 10.9 fl (6.2-12.0); POSITIVE COUNT YES; POSITIVE MORPHOLOGY YES; Platelet Count 472 K/mm3 (150-450); RBC Distribution Width CV 14.5 % (11.6-14.6); RBC Distribution Width SD 46.3 fl (35.1-43.9); Red Blood Count 3.58 M/mm3 (4.2-5.4); White Blood Count 8.5 K/mm3 (4.4-11.0)
[2020-08-10 05:33] LABS: Differential Indicated MANUAL DIFF
[2020-08-10 05:34] LABS: Anion Gap 4 (5-15); BUN 36 mg/dL (7-18); BUN/Creat Ratio 46.8 RATIO (10-20); Calcium,Total 8.6 mg/dL (8.5-10.1); Chloride 109 mmol/L (98-107); Creatinine, Serum 0.77 mg/dL (0.55-1.02); EST Glomerular Filtration Rate 80 mL/min (>60); Est Glom Filt Rate - Afr Amer 97 mL/min (>60); Glucose 135 mg/dL (74-106); Potassium 3.2 mmol/L (3.5-5.1); Sodium Level 145 mmol/L (136-145)
[2020-08-10] MEDS: Vital AF 1.2 Cal Liquid 1,000 ML 60 ML GT ×2 (06:32→12:11)
[2020-08-10 06:40] LABS: Absolute Neutrophil Count 6.9 X10^3/uL (2.0-7.7); Lymphocyte 11 % (19-41); Metamyelocyte 4 % (0-1); Monocyte 4 % (0-10); Neutrophil-Band 4 % (0-5); Neutrophil-Segmented 77 % (47-70); Scan Smear per Review Criteria MANUAL DIFF; Total Cells Counted 100 (MANUAL DIFF)
[2020-08-10 06:41] LABS: Absolute Lymphocyte Count 0.94 X10^3/uL (0.83-4.51); Platelet Estimate A (ADEQ); Red Cell Morphology NORM C+C NORMAL (NORM C&C)
[2020-08-10] MEDS: TITRATION PARAMETER CHANGE 1 EACH IV (06:49)
[2020-08-10] MEDS: Propofol 10MG/Ml 1,000 MG/100 ML Bottle 7 MG CONT INF (07:00)
[2020-08-10] MEDS: Famotidine 200 MG/20 ML MDV 20 MG in 0.9% Normal Saline (Pres. free 8 ML 300 MG IV (08:39)
[2020-08-10] MEDS: dexAMETHasone 2 MG TABLET 6 MG GT (08:40)
[2020-08-10] MEDS: Enoxaparin 80 MG/0.8 ML Syringe SC (08:40)
[2020-08-10] MEDS: Levothyroxine 25 MCG TABLET GT (08:40)
[2020-08-10] MEDS: 0.9% Saline Lock 10 ML Syringe IV ×3 (08:44→17:48)
--- NOTE | 2020-08-10 10:13 | CASEMGMT ---
RN CM Note. participated in ICU interdisciplinary rounds. Patient remains intubated and on ventilator with 50% oxygen. Passed mobility, PT/OT to see today. Tube feed via NG, and remains on Fentanyl and Diprivan. DC Planning is on hold. Will re-evaluate once patient has been extubated for level of care on discharge. Jessica BERNAL RN ACM
--- NOTE | 2020-08-10 10:15 | PCM.PN.INT ---
Subjective: Patient did okay overnight. Patient's oxygenation status has improved and she was able to be taken off of Levophed. However, patient did not have a spontaneous breathing trial this morning secondary to muscular concerns. Patient did have good diuresis with Lasix yesterday. She does track with her eyes, but makes very little effort to move extremities. General: Alert, No apparent distress, - - Good vent synchrony. HEENT: Atraumatic, PERRLA, EOMI, Normocephalic, - - Slight scleral injection without icterus Oral: Moist Mucosa, No Gingival or Mucosal Lesions/ Ulcerations Neck: Supple, No Nodes, Trachea Midline, JVD, Right Lungs: No rhonchi, No wheeze, No rales, Diminished, - - Symmetric expansion Cardiovascular: Normal S1, Normal S2, No murmurs, No rub noted, No Gallop, Tachycardic Abdomen: Bowel Sounds Present, Soft, Non Tender, Non-Distended, - - 4 cm hematoma noted at Lovenox injection site Extremities: No clubbing, No cyanosis, Edema Skin: - - Hematoma noted. Otherwise unchanged. Musculoskeletal: No Tenderness to Palpation of Joints or Extremities Lymphatic: No Cervical, Supraclavicular, or Inguinal Adenopathy Neurological: - - Extremely weak with muscle strength 2 out of 5. Psych/Mental Status: Flat Affect Vital Signs Temp Pulse Resp BP Pulse Ox 37.5 C H 94 19 H 152/86 H 92 08/10/20 06:00 08/10/20 07:15 08/10/20 07:15 08/10/20 06:00 08/10/20 07:15 Oxygen Flow Rate (L/min) 60 Oxygen Delivery Method Mechanical Ventilator Weight: 77.5 kg Body Mass Index (BMI) 28.9 Intake and Output for Last 24 Hours 08/08/20 08/09/20 08/10/20 23:59 23:59 23:59 Intake Total 2814.55 / 2951.40 2524.89 / 2856.99 898.95 / 898.95 Output Total 2335 / 2335 4700 / 4900 800 / 800 Balance 479.55 / 616.40 -2175.11 / -2043.01 98.95 / 98.95 Labs (Last 48 Hours) 11/23/20 11/23/20 11/23/20 03:15 03:15 04:00 WBC 9.0 RBC 3.30 L Hgb 9.7 L Hct 30.6 L MCV 92.7 MCH 29.4 MCHC 31.7 L RDW Std Deviation 49.1 H RDW Coeff of Brittanie 14.7 H Plt Count 431 MPV 12.1 H Immature Gran % (Auto) 4.300 H Neut % (Auto) 72.0 H Lymph % (Auto) 11.3 L [place] % (Auto) 6.9 Eos % (Auto) 4.9 Baso % (Auto) 0.6 Absolute Neuts (auto) 6.5 Absolute Lymphs (auto) 1.01 Total Counted Neutrophils % (Manual) Band Neutrophils % Lymphocytes % (Manual) Monocytes % (Manual) Metamyelocytes % Nucleated RBC % 0.2 Diff Path Review Platelet Estimate RBC Morphology Sodium Cancelled 146 H Potassium Cancelled 3.5 Chloride Cancelled 112 H Carbon Dioxide Cancelled 30.0 Anion Gap Cancelled 4 L BUN Cancelled 47 H Creatinine Cancelled 1.00 Estim Creat Clear Calc Cancelled 48.43 Est GFR (MDRD) Af Amer Cancelled 72 Est GFR (MDRD) Non-Af Cancelled 59 L BUN/Creatinine Ratio Cancelled 47.1 H Glucose Cancelled 128 H Calcium Cancelled 8.4 L POC Glucose 08/09/20 08/09/20 08/10/20 11:35 18:13 05:00 WBC 8.5 RBC 3.58 L Hgb 10.4 L Hct 32.1 L MCV 89.7 MCH 29.1 MCHC 32.4 RDW Std Deviation 46.3 H RDW Coeff of Brittanie 14.5 Plt Count 472 H MPV 10.9 Immature Gran % (Auto) BAND BIAS MACHINE OPERATOR Neut % (Auto) BAND BIAS MACHINE OPERATOR Lymph % (Auto) BAND BIAS MACHINE OPERATOR Luce % (Auto) BAND BIAS MACHINE OPERATOR Eos % (Auto) BAND BIAS MACHINE OPERATOR Baso % (Auto) BAND BIAS MACHINE OPERATOR Absolute Neuts (auto) 6.9 Absolute Lymphs (auto) 0.94 Total Counted 100 Neutrophils % (Manual) 77 H Band Neutrophils % 4 Lymphocytes % (Manual) 11 L Monocytes % (Manual) 4 Metamyelocytes % 4 H Nucleated RBC % BAND BIAS MACHINE OPERATOR Diff Path Review May foll Platelet Estimate A RBC Morphology NORM C+C Sodium Potassium Chloride Carbon Dioxide Anion Gap BUN Creatinine Estim Creat Clear Calc Est GFR (MDRD) Af Amer Est GFR (MDRD) Non-Af BUN/Creatinine Ratio Glucose Calcium POC Glucose 127 H 146 H 08/10/20 05:00 WBC RBC Hgb Hct MCV MCH MCHC RDW Std Deviation RDW Coeff of Brittanie Plt Count MPV Immature Gran % (Auto) Neut % (Auto) Lymph % (Auto) Luce % (Auto) Eos % (Auto) Baso % (Auto) Absolute Neuts (auto) Absolute Lymphs (auto) Total Counted Neutrophils % (Manual) Band Neutrophils % Lymphocytes % (Manual) Monocytes % (Manual) Metamyelocytes % Nucleated RBC % Diff Path Review Platelet Estimate RBC Morphology Sodium 145 Potassium 3.2 L Chloride 109 H Carbon Dioxide 32.0 Anion Gap 4 L BUN 36 H Creatinine 0.77 Estim Creat Clear Calc 62.90 Est GFR (MDRD) Af Amer 97 Est GFR (MDRD) Non-Af 80 BUN/Creatinine Ratio 46.8 H Glucose 135 H Calcium 8.6 POC Glucose Medical Necessity - Tobacco Use Smoking Status: Former smoker Tobacco Use: Cigarettes Assessment/Plan All Active Problems (Last Reviewed 07/16/20 @ 23:[address] Richard Gaona MD) COVID-19 (Acute) Hypoxia (Acute) Hypokalemia (Acute) Respiratory insufficiency (Acute) RECOMMENDATIONS: 1. Continue current supportive measures with invasive mechanical ventilatory support. 2. Continue patient on assist control mode of mechanical ventilation and wean FiO2 and PEEP as tolerated. 3. Continue Levophed and wean to maintain a mean arterial pressure at or above 65 mmHg. 4. Continue empiric antimicrobials and Decadron. 5. Send sputum for culture. Add Diflucan 6. Transition to Eliquis through the G-tube 7. Continue appropriate GI prophylaxis. 8. Continue Lasix. Possibly recheck potassium if significant output IMPRESSIONS: 1. Acute hypoxemic respiratory failure secondary to COVID-19 pneumonia/pulmonary emboli The patient continues to be quite tenuous from a respiratory perspective with high oxygen requirement. The patient has already completed a treatment course of remdesivir and Decadron. She also received convalescent plasma. CTA chest obtained during this hospitalization did reveal small upper lobe pulmonary emboli. We will transition from Lovenox to Eliquis given hematoma. Unfortunately, the patient did decompensate from a respiratory perspective and did require intubation. The patient was subsequently paralyzed for approximately 48 hours. Patient's hemodynamics have improved with decrease sedation. Possible transition to Precedex therapy to facilitate spontaneous breathing trial if has dyssynchrony following cessation of sedation. 2. Distributive shock Resolved. The patient did develop hemodynamic instability as a consequence of sedative medication use, requiring vasopressor initiation. Continue to monitor blood pressure closely. 3. Acute kidney injury Suspect likely secondary to ischemic ATN in the setting of #1, 2 and possible postobstructive pathology given clogged Gr. Plan to continue current supportive measures, including vasopressor support to maintain hemodynamic stability. Continue to monitor urine output. No current indication for renal replacement therapy. Will challenge with low-dose Lasix now that Gr is patent. Patient will require potassium supplementation 4. Advanced age/anxiety/hypothyroidism/hypertension/GERD Complicates care, management, recovery and prognosis. Continue current supportive measures. CODE status: Discussed CODE status at length including difference between FULL code, DNR-CCA and DNR-CC status. Following discussions about the differences in these status, patient's family requested DNR CCA CODE STATUS. TIME: 35 minutes of critical care time, independent of procedures, was spent addressing the patient's acute hypoxemic respiratory failure, COVID-19 pneumonia, pulmonary emboli, acute kidney injury, distributive shock, review of all data and collaboration with the care team. (9 AM to 10 AM) [id number] Critical care first hour
--- NOTE | 2020-08-10 11:14 | PCM.PN.HOSP ---
Patient Problems: Active and Suspected Problems (Last Reviewed 07/16/20 @ 23:[address] Richard Gaona MD) COVID-19 (Acute) Hypoxia (Acute) Hypokalemia (Acute) Respiratory insufficiency (Acute) Reason for Visit: COVID 19 Subjective: on vent. Vitals/I&O's: Vital Signs Temp Pulse Resp BP Pulse Ox 37.5 C H 94 19 H 152/86 H 92 08/10/20 06:00 08/10/20 07:15 08/10/20 07:15 08/10/20 06:00 08/10/20 07:15 Oxygen Flow Rate (L/min) 60 Oxygen Delivery Method Mechanical Ventilator Weight: 77.5 kg Body Mass Index (BMI) 28.9 Intake and Output for Last 24 Hours 08/08/20 08/09/20 08/10/20 23:59 23:59 23:59 Intake Total 2814.55 / 2951.40 2524.89 / 2856.99 1018.95 / 1018.95 Output Total 2335 / 2335 4700 / 4900 800 / 800 Balance 479.55 / 616.40 -2175.11 / -2043.01 218.95 / 218.95 General: No apparent distress, Confused, - - follows some commands. HEENT: Atraumatic, Normocephalic Oral: Moist Mucosa, No Gingival or Mucosal Lesions/ Ulcerations Neck: No Nodes, Thyroid Normal Size and Texture Lungs: Clear to auscultation, Normal air movement, No rhonchi, No wheeze, No rales Cardiovascular: Regular rate, Regular Rhythm, Normal S1, Normal S2, No murmurs Abdomen: Bowel Sounds Present, Soft, Non Tender, Non-Distended, No Hepato-splenomegaly Extremities: No edema, No Calf Tenderness Psych/Mental Status: Normal Affect, Appropriate Microbiology Past 72 Hours 08/05/20 07:38 Sputum, Induced/Lukens Gram Stain - Final 08/05/20 07:38 Sputum, Induced/Lukens Respiratory Culture - Final Mixed normal respiratory olivia. No Streptococcus pneumoniae, beta-hemolytic Streptococcus or Staphylococcus aureus isolated. 08/01/20 17:52 Blood Culture (Wb) - Right Hand Blood Culture - Final No growth in 5 days. 08/01/20 17:45 Blood Culture (Wb) - Arm Right Blood Culture - Final No growth in 5 days. Laboratory Results 08/09/20 11:35: POC Glucose 127 H 08/09/20 18:13: POC Glucose 146 H 08/10/20 05:00: WBC 8.5, RBC 3.58 L, Hgb 10.4 L, Hct 32.1 L, MCV 89.7, MCH 29.1, MCHC 32.4, RDW Std Deviation 46.3 H, RDW Coeff of Brittanie 14.5, Plt Count 472 H, MPV 10.9, Immature Gran % (Auto) TECHNICIAN HELPER INSTRUMENT, Neut % (Auto) TECHNICIAN HELPER INSTRUMENT, Lymph % (Auto) TECHNICIAN HELPER INSTRUMENT, [place] % (Auto) TECHNICIAN HELPER INSTRUMENT, Eos % (Auto) TECHNICIAN HELPER INSTRUMENT, Baso % (Auto) TECHNICIAN HELPER INSTRUMENT, Absolute Neuts (auto) 6.9, Absolute Lymphs (auto) 0.94, Total Counted 100, Neutrophils % (Manual) 77 H, Band Neutrophils % 4, Lymphocytes % (Manual) 11 L, Monocytes % (Manual) 4, Metamyelocytes % 4 H, Nucleated RBC % TECHNICIAN HELPER INSTRUMENT, Diff Path Review January, Platelet Estimate A, RBC Morphology NORM C+C 08/10/20 05:00: Sodium 145, Potassium 3.2 L, Chloride 109 H, Carbon Dioxide 32.0, Anion Gap 4 L, BUN 36 H, Creatinine 0.77, Estim Creat Clear Calc 62.90, Est GFR (MDRD) Af Amer 97, Est GFR (MDRD) Non-Af 80, BUN/Creatinine Ratio 46.8 H, Glucose 135 H, Calcium 8.6 Current Medications Acetaminophen (Acetaminophen 650 Mg/20 Ml Udc) 650 mg GT Q6H PRN PRN PRN Reason: Pain Score 1-10/Temp > 100.7 F Albuterol Sulfate (Albuterol 2.5 Mg/3 Ml Vial.Neb.) 2.5 mg INHALATION Q2H PRN PRN PRN Reason: Dyspnea, wheezing Apixaban (Apixaban 5 Mg Tablet) 5 mg PO BID [facility] Chlorhexidine Gluconate (Chlorhexidine 15 Ml) 15 ml PO BID [facility] Last Admin: 08/09/20 20:01 Dose: 15 ml Documented by: Dexamethasone (Dexamethasone 2 Mg Tablet) 6 mg GT DAILY [facility] Stop: 08/14/20 10:01 Last Admin: 08/10/20 08:40 Dose: 6 mg Documented by: Famotidine (Famotidine 20 Mg Tablet) 20 mg GT BID [facility] Meropenem 1 gm/ Sodium (Chloride) 120 mls @ 33 mls/hr IV Q8 [facility] Last Infusion: 08/10/20 10:28 Dose: Infused Documented by: Fentanyl Citrate 1,000 mcg/ (Sodium Chloride) 100 mls @ 20 mls/hr CONT INF .Q5H [facility]; Protocol Last Admin: 08/10/20 10:34 Dose: Not Given Documented by: Propofol (Diprivan) 1,000 mg in 100 mls @ 16.38 mls/hr CONT INF .Q6H7M [facility]; Protocol Last Admin: 08/10/20 07:00 Dose: 15 mcg/kg/min, 7 mls/hr Documented by: Enteral Nutritional Formula (Vital Af 1.2 Edwardo Liquid) 1,000 mls @ 60 mls/hr GT .[id number] [facility] Last Admin: 08/10/20 06:32 Dose: 60 mls/hr Documented by: Levothyroxine Sodium (Levothyroxine 25 Mcg Tablet) 25 mcg GT DAILY [facility] Last Admin: 08/10/20 08:40 Dose: 25 mcg Documented by: Ondansetron HCl (Ondansetron 4 Mg/2 Ml Vial) 4 mg IV Q6H PRN PRN PRN Reason: NAUSEA/VOMITING Last Admin: 08/04/20 17:35 Dose: 4 mg Documented by: Potassium Chloride (Potassium Chl Soln 20 Meq/15 Ml Udc) 40 meq PO BID [facility] Stop: 08/10/20 22:01 Last Admin: 08/10/20 08:40 Dose: 40 meq Documented by: Sodium Chloride (0.9% Saline Lock 10 Ml Syringe) 10 - 40 ml IV UD PRN PRN Reason: SALINE FLUSH Last Admin: 08/10/20 08:44 Dose: 30 ml Documented by: STROKE Vital Signs/Narrative: Vital Signs Pulse Resp Pulse Ox 08/10/20 07:15 94 19 H 92 Medical Necessity - Tobacco Use Smoking Status: Former smoker Tobacco Use: Cigarettes Assessment/Plan All Active Problems (Last Reviewed 07/16/20 @ 23:[address] Richard Gaona MD) COVID-19 (Acute) Hypoxia (Acute) Hypokalemia (Acute) Respiratory insufficiency (Acute) 1. COVID 19 Positive on 07/14/2020 Completed dexamethasone, remdesivir, and convalescent plasma back on Dexamethasone through the 28th ID following 2. Acute hypoxic respiratory failure 2/2 COVID, PE, ALI, PNA Off paralytics on 50% Fio2 on Meropenem CCM following 3. JARRETT resolved 2/2 obstructed catheter 4. Septic shock on norepinephrine 5. PE changed to apixaban 6. Prognosis: guarded DNRCCA anticipate continue prolonged recovery, though may not have much physiologic reserve to endure another medical insult. May need to consider LTAC Inpatient E&M: [id number] Subs Hosp L2
--- NOTE | 2020-08-10 11:21 | CASEMGMT ---
SW participated in ICU rounds, pt will remain in ICU at this time, is on a ventilator at this time. SW called step daughter Yenifer, support offered. She confirms that is agreeable that she is the spokesperson for pt, SW explained will call pt's just to confirm and add her information to the computer. SW called sola Goyo Landon. SW offered support to . acknowledges that this is difficult, he does want to see if he can call in tomorrow to speak w/pt. He is aware she cannot speak to him however. SW explained will let ICU staff know. SW asked if Yenifer is the spokesperson for family at present. SW explained that he is the next of kin. He does confirm that she is the spokesperson as she understands everything better than he does(she is a nurse). He is agreeable to have SW add her information to the computer. SW let know we are available for support as needed. SW will add daughter's demographic information to [employer]. SW let RN know the above. She will follow up w/ as time allows to arrange a call so can speak w/pt. AMARI Selby
[2020-08-10] MEDS: Furosemide 20 MG/2 ML VIAL IV (12:12)
[2020-08-10] MEDS: Fluconazole Suspension 40 MG/ML 35 ML Bottle 150 MG PO (12:12)
[2020-08-10] MEDS: Chlorhexidine 15 ML PO (12:12)
[2020-08-10] MEDS: Propofol 10MG/Ml 1,000 MG/100 ML Bottle 2.3 MG CONT INF (14:02)
[2020-08-10 14:57] LABS: Pathologist Review Reviewed
[2020-08-10 17:57] LABS: Potassium 3.8 mmol/L (3.5-5.1)
[2020-08-10 18:05] LABS: Bedside Glucose 199 mg/dL (70-110)
--- NOTE | 2020-08-10 20:21 | EKG12_ITS ---
Test Reason : ARRTHYMIA Blood Pressure : / mmHG Vent. Rate : 075 BPM Atrial Rate : 075 BPM P-R Int : 166 ms QRS Dur : 078 ms QT Int : 404 ms P-R-T Axes : 053 014 018 degrees QTc Int : 451 ms Normal sinus rhythm Nonspecific T wave abnormality Abnormal ECG No previous ECGs available Confirmed by UMBERTO ERNANDEZ, KIRT ([id number]), newspaper managing editor MELODY WHITE ([id number]) on 08/17/2020 2:09:55 PM Referred By: ANTONIO Confirmed By:KIRT SHIPMAN MD
[2020-08-10 20:51] LABS: Bedside Glucose 169 mg/dL (70-110)
[2020-08-10] MEDS: Ondansetron 4 MG/2 ML Vial IV (21:00)
--- NOTE | 2020-08-10 21:34 | RAD_ITS ---
HISTORY: aspiration during tube feed ADDITIONAL HISTORY: None provided. EXAMINATION/TECHNIQUE: XR Chest 1 View AP/PA Number of images including paperwork: 1 COMPARISON: 08/05/2020 FINDINGS: LUNGS AND PLEURA: Low lung volumes. Peripheral and basilar predominant interstitial infiltrates again seen with mild apparent decrease. No dense consolidation. No sizable pleural effusion. No pneumothorax. CARDIAC SILHOUETTE: Unremarkable. MEDIASTINUM AND NEELA: Unremarkable. UPPER ABDOMEN: Unremarkable. SKELETON AND SOFT TISSUES: No acute skeletal findings. OTHER DEVICES AND HARDWARE: Endotracheal tube tip in the mid thoracic trachea. Gastric tube extends into the stomach, tip of the temporal margin of the film. Right-sided vascular catheter tip near the cavoatrial junction. RAD/Chest 1 View (Portable) IMPRESSION: Mild decrease in bilateral infiltrates. at 2220 Reported and signed by: Terri Blackman MD Electronically Signed: Terri Blackman MD at 22:19 EST Tel , Service support ,
[2020-08-10] MEDS: APIXABAN 5 MG TABLET PO (22:35)
[2020-08-11] VITALS (39 sets, daily range): BP systolic 129–162; BP diastolic 68–92; PULSE 62–93; RESP 12–22; TEMP 37–38.2; O2SAT 91–96
[2020-08-11 06:15] LABS: Hematocrit 32.9 % (37-47); Hemoglobin 10.2 g/dL (12.0-15.0); Mean Corpuscular Hgb 28.6 pg (27.0-32.0); Mean Corpuscular Volume 92.2 fL (81-99); Mean Platelet Vol. 10.5 fl (6.2-12.0); POSITIVE COUNT YES; POSITIVE MORPHOLOGY YES; Platelet Count 536 K/mm3 (150-450); RBC Distribution Width CV 14.7 % (11.6-14.6); RBC Distribution Width SD 48.7 fl (35.1-43.9); Red Blood Count 3.57 M/mm3 (4.2-5.4); White Blood Count 7.9 K/mm3 (4.4-11.0)
[2020-08-11 06:16] LABS: Differential Indicated MANUAL DIFF
[2020-08-11 06:25] LABS: Anion Gap 1 (5-15); BUN 34 mg/dL (7-18); BUN/Creat Ratio 47.4 RATIO (10-20); Chloride 111 mmol/L (98-107); Creatinine, Serum 0.72 mg/dL (0.55-1.02); EST Glomerular Filtration Rate 87 mL/min (>60); Est Glom Filt Rate - Afr Amer 105 mL/min (>60); Estimated Creatinine Clearance 67.27 ml/min; Glucose 113 mg/dL (74-106); Potassium 4.2 mmol/L (3.5-5.1); Sodium Level 147 mmol/L (136-145)
[2020-08-11 06:33] LABS: Metamyelocyte 1 % (0-1); Neutrophil-Band 2 % (0-5); Neutrophil-Segmented 73 % (47-70); Total Cells Counted 100 (MANUAL DIFF)
[2020-08-11 06:34] LABS: Absolute Neutrophil Count 5.9 X10^3/uL (2.0-7.7); Lymphocyte 19 % (19-41); Monocyte 5 % (0-10); Platelet Estimate ADEQUATE (ADEQ); Red Cell Morphology NORM C+C NORMAL (NORM C&C)
[2020-08-11 07:41] LABS: Allen Test Positive; Base Excess 9 mmol/L (-2 to +2); Bicarbonate 32.9 mmol/L (22-26); Blood Gas Specimen Type ART; FI02 45; Mode CPAP/PS; O2 Delivery Device Adult Vent; PEEP 5; PO2 56 mmHG (75-100); PS 5; SITE R Radial; SO2 89 % (95-99); Total Carbon Dioxide 34 mmol/L; pCO2 47.1 mmHg (35-45); pH 7.45 (7.35-7.45)
--- NOTE | 2020-08-11 08:12 | PN_ITS ---
Subjective: Patient did okay overnight. Patient did have an episode of emesis with concern for aspiration. Follow-up chest x-ray did not show a significant infiltrate. Patient was able to have a spontaneous breathing trial and lasted an hour. Patient NIF was noted at being 50. However, patient's oxygenation remained marginal at the end of 1 hour, so sedation and fentanyl was reinitiated. Patient was following commands during sedation holiday. Objective: Patient is able to sit up somewhat, but is not using arms or legs consistently. Patient does squeeze fingers with good strength. General: Alert, Cooperative - As able, No apparent distress HEENT: Atraumatic, PERRLA, EOMI, Normocephalic, - - Slight scleral injection without icterus Oral: Moist Mucosa, No Gingival or Mucosal Lesions/ Ulcerations Neck: Supple, No JVD, No Nodes, Trachea Midline Lungs: No wheeze, No rales, Diminished, Rhonchi - Right base, - - Symmetric expansion Cardiovascular: Regular rate, Regular Rhythm, Normal S1, Normal S2, No murmurs, No rub noted, No Gallop Abdomen: Bowel Sounds Present, Soft, Non Tender, Distended - Slightly Extremities: No clubbing, No cyanosis, Edema Skin: - - No change compared to previous Musculoskeletal: No Tenderness to Palpation of Joints or Extremities Lymphatic: No Cervical, Supraclavicular, or Inguinal Adenopathy Neurological: Cranial nerves II-XII grossly intact, - - Decreased muscle strength at 3/5 Psych/Mental Status: Flat Affect Vital Signs Temp Pulse Resp BP Pulse Ox 37.8 C H 93 16 157/79 H 92 08/11/20 07:00 08/11/20 07:00 08/11/20 07:00 08/11/20 07:00 08/11/20 07:00 Oxygen Flow Rate (L/min) 60 Oxygen Delivery Method CPAP Weight: 75.3 kg Body Mass Index (BMI) 28.9 Intake and Output for Last 24 Hours 08/09/20 08/10/20 08/11/20 23:59 23:59 23:59 Intake Total 2524.89 / 2856.99 2334.79 / 2334.79 203.75 / 203.75 Output Total 4700 / 4900 3315 / 3385 610 / 610 Balance -2175.11 / -2043.01 -980.21 / -1050.21 -406.25 / -406.25 Labs (Last 48 Hours) 08/09/20 08/09/20 08/10/20 11:35 18:13 05:00 WBC 8.5 RBC 3.58 L Hgb 10.4 L Hct 32.1 L MCV 89.7 MCH 29.1 MCHC 32.4 RDW Std Deviation 46.3 H RDW Coeff of Brittanie 14.5 Plt Count 472 H MPV 10.9 Immature Gran % (Auto) CONTINUOUS LINTER DRIER OPERATOR Neut % (Auto) CONTINUOUS LINTER DRIER OPERATOR Lymph % (Auto) CONTINUOUS LINTER DRIER OPERATOR [place] % (Auto) CONTINUOUS LINTER DRIER OPERATOR Eos % (Auto) CONTINUOUS LINTER DRIER OPERATOR Baso % (Auto) CONTINUOUS LINTER DRIER OPERATOR Absolute Neuts (auto) 6.9 Absolute Lymphs (auto) 0.94 Total Counted 100 Neutrophils % (Manual) 77 H Band Neutrophils % 4 Lymphocytes % (Manual) 11 L Monocytes % (Manual) 4 Metamyelocytes % 4 H Nucleated RBC % CONTINUOUS LINTER DRIER OPERATOR Diff Path Review Reviewed Platelet Estimate A RBC Morphology NORM C+C Specimen Type Sample Site pH Bicarbonate Actual Total CO2 Base Excess O2 Saturation O2 % ABG pCO2 ABG pO2 Kwan Test O2 Delivery Device Vent Mode POC PEEP POC Pressure Suppt Sodium Potassium Chloride Carbon Dioxide Anion Gap BUN Creatinine Estim Creat Clear Calc Est GFR (MDRD) Af Amer Est GFR (MDRD) Non-Af BUN/Creatinine Ratio Glucose Calcium POC Glucose 127 H 146 H 08/10/20 08/10/20 08/10/20 05:00 11:58 17:19 WBC RBC Hgb Hct MCV MCH MCHC RDW Std Deviation RDW Coeff of Brittanie Plt Count MPV Immature Gran % (Auto) Neut % (Auto) Lymph % (Auto) [place] % (Auto) Eos % (Auto) Baso % (Auto) Absolute Neuts (auto) Absolute Lymphs (auto) Total Counted Neutrophils % (Manual) Band Neutrophils % Lymphocytes % (Manual) Monocytes % (Manual) Metamyelocytes % Nucleated RBC % Diff Path Review Platelet Estimate RBC Morphology Specimen Type Sample Site pH Bicarbonate Actual Total CO2 Base Excess O2 Saturation O2 % ABG pCO2 ABG pO2 Kwan Test O2 Delivery Device Vent Mode POC PEEP POC Pressure Suppt Sodium 145 Potassium 3.2 L Chloride 109 H Carbon Dioxide 32.0 Anion Gap 4 L BUN 36 H Creatinine 0.77 Estim Creat Clear Calc 62.90 Est GFR (MDRD) Af Amer 97 Est GFR (MDRD) Non-Af 80 BUN/Creatinine Ratio 46.8 H Glucose 135 H Calcium 8.6 POC Glucose 169 H 199 H 08/10/20 08/11/20 08/11/20 17:40 05:45 05:45 WBC 7.9 RBC 3.57 L Hgb 10.2 L Hct 32.9 L MCV 92.2 MCH 28.6 MCHC 31.0 L RDW Std Deviation 48.7 H RDW Coeff of Brittanie 14.7 H Plt Count 536 H MPV 10.5 Immature Gran % (Auto) Neut % (Auto) Not Reportable Lymph % (Auto) [place] % (Auto) Eos % (Auto) Baso % (Auto) Absolute Neuts (auto) 5.9 Absolute Lymphs (auto) 1.50 Total Counted 100 Neutrophils % (Manual) 73 H Band Neutrophils % 2 Lymphocytes % (Manual) 19 Monocytes % (Manual) 5 Metamyelocytes % 1 Nucleated RBC % Diff Path Review May foll Platelet Estimate ADEQUATE RBC Morphology NORM C+C Specimen Type Sample Site pH Bicarbonate Actual Total CO2 Base Excess O2 Saturation O2 % ABG pCO2 ABG pO2 Kwan Test O2 Delivery Device Vent Mode POC PEEP POC Pressure Suppt Sodium 147 H Potassium 3.8 4.2 Chloride 111 H Carbon Dioxide 35.0 H Anion Gap 1 L BUN 34 H Creatinine 0.72 Estim Creat Clear Calc 67.27 Est GFR (MDRD) Af Amer 105 Est GFR (MDRD) Non-Af 87 BUN/Creatinine Ratio 47.4 H Glucose 113 H Calcium 9.0 POC Glucose 08/11/20 07:34 WBC RBC Hgb Hct MCV MCH MCHC RDW Std Deviation RDW Coeff of Brittanie Plt Count MPV Immature Gran % (Auto) Neut % (Auto) Lymph % (Auto) [place] % (Auto) Eos % (Auto) Baso % (Auto) Absolute Neuts (auto) Absolute Lymphs (auto) Total Counted Neutrophils % (Manual) Band Neutrophils % Lymphocytes % (Manual) Monocytes % (Manual) Metamyelocytes % Nucleated RBC % Diff Path Review Platelet Estimate RBC Morphology Specimen Type ART Sample Site R Radial pH 7.45 Bicarbonate Actual 32.9 H Total CO2 34 Base Excess 9 H O2 Saturation 89 L O2 % 45 ABG pCO2 47.1 H ABG pO2 56 L Kwan Test Positive O2 Delivery Device Adult Vent Vent Mode CPAP/PS POC PEEP 5 POC Pressure Suppt 5 Sodium Potassium Chloride Carbon Dioxide Anion Gap BUN Creatinine Estim Creat Clear Calc Est GFR (MDRD) Af Amer Est GFR (MDRD) Non-Af BUN/Creatinine Ratio Glucose Calcium POC Glucose Microbiology 08/10/20 12:30 Sputum, Induced/Lukens Gram Stain - Final Clinical Impression(s) from Imaging Studies Chest X-Ray 08/10/20 21:34 IMPRESSION: Mild decrease in bilateral infiltrates. at 2220 Reported and signed by: Terri Blackman MD Electronically Signed: Terri Blackman MD at 22:19 EST Tel , Service support , Medical Necessity - Tobacco Use Smoking Status: Former smoker Tobacco Use: Cigarettes Assessment/Plan All Active Problems (Last Reviewed 07/16/20 @ 23:[address] Richard Gaona MD) COVID-19 (Acute) Hypoxia (Acute) Hypokalemia (Acute) Respiratory insufficiency (Acute) RECOMMENDATIONS: 1. Continue current supportive measures with invasive mechanical ventilatory support. 2. Spontaneous breathing and awakening trials per protocol 3. Diuretic challenge 4. Continue empiric antimicrobials and Decadron per infectious disease. 5. Send sputum for culture. 6. Transition to Eliquis through the G-tube 7. Continue appropriate GI prophylaxis. 8. Continue Lasix. Possibly recheck potassium if significant output IMPRESSIONS: 1. Acute hypoxemic respiratory failure secondary to COVID-19 p neumonia/pulmonary emboli The patient continues to be quite tenuous from a respiratory perspective with high oxygen requirement. The patient has already completed a treatment course of remdesivir and Decadron. She also received convalescent plasma. CTA chest obtained during this hospitalization did reveal small upper lobe pulmonary emboli. Patient appears to be significantly improved compared to previous. Patient was able to tolerate a spontaneous breathing trial, but with marginal oxygenation and concern for muscle strength, patient was continued on mechanical ventilation. Patient does not appear to have sequelae of aspiration. We will give patient a diuretic challenge today given improvement in blood pressure. 2. Distributive shock Resolved. The patient did develop hemodynamic instability as a consequence of sedative medication use, requiring vasopressor initiation. Continue to monitor blood pressure closely. 3. Acute kidney injury Resolved. Suspect likely secondary to ischemic ATN in the setting of #1, 2 and possible postobstructive pathology given clogged Gr. Plan to continue current supportive measures, including vasopressor support to maintain hemodynamic stability. Continue to monitor urine output. No current indication for renal replacement therapy. Continue diuretic challenges as patient tolerates. 4. Advanced age/anxiety/hypothyroidism/hypertension/GERD Complicates care, management, recovery and prognosis. Continue current supportive measures. TIME: 38 minutes of critical care time, independent of procedures, was spent addressing the patient's acute hypoxemic respiratory failure, COVID-19 pneumo dylan, pulmonary emboli, acute kidney injury, distributive shock, review of all data and collaboration with the care team. (7:20 AM to 8:20 AM) 9xxxx: [id number] Critical care first hour
[2020-08-11] MEDS: Chlorhexidine 15 ML PO ×2 (08:38→22:00)
[2020-08-11] MEDS: Famotidine 20 MG Tablet GT ×2 (08:38→20:09)
[2020-08-11] MEDS: Vital AF 1.2 Cal Liquid 1,000 ML 10 ML GT (08:38)
[2020-08-11] MEDS: Levothyroxine 25 MCG TABLET GT (08:38)
[2020-08-11] MEDS: APIXABAN 5 MG TABLET PO ×2 (08:38→20:09)
[2020-08-11] MEDS: dexAMETHasone 2 MG TABLET 6 MG GT (08:38)
[2020-08-11] MEDS: 0.9% Saline Lock 10 ML Syringe IV ×2 (08:45→20:09)
--- NOTE | 2020-08-11 09:34 | NURSING ---
Pt's family member, Yenifer, called for rounds.
--- NOTE | 2020-08-11 11:04 | CASEMGMT ---
RN CM Note: participated in ICU interdisciplinary rounds. Patient's daughter participated in rounds via phone. Pt remains on vent, 45% oxygen. Pt tolerated spontaneous breathing trial but with marginal oxygenation and concern for muscle strength per physician. Remains on Propofol and Fentanyl gtt. TF restarted @ 10 ml/hr today. Passed mobility- PT/OT to see patient today. CM to re-evaluate pt's progress on Sunday for dc planning. DC Planning: To be determined. On hold currently.
[2020-08-11 12:13] LABS: Pathologist Review Reviewed
--- NOTE | 2020-08-11 12:50 | PCM.PN.HOSP ---
Patient Problems: Active and Suspected Problems (Last Reviewed 07/16/20 @ 23:[address] Richard Gaona MD) COVID-19 (Acute) Hypoxia (Acute) Hypokalemia (Acute) Respiratory insufficiency (Acute) Reason for Visit: COVID-19 Subjective: Tolerated 1h SBT. Emesis with aspiration. Vitals/I&O's: Vital Signs Temp Pulse Resp BP Pulse Ox 38.0 C H 72 16 162/75 H 93 08/11/20 12:00 08/11/20 12:00 08/11/20 12:00 08/11/20 12:00 08/11/20 12:00 Oxygen Flow Rate (L/min) 60 Oxygen Delivery Method Mechanical Ventilator Weight: 75.3 kg Body Mass Index (BMI) 28.9 Intake and Output for Last 24 Hours 08/09/20 08/10/20 08/11/20 23:59 23:59 23:59 Intake Total 2524.89 / 2856.99 2334.79 / 2334.79 423.75 / 423.75 Output Total 4700 / 4900 3315 / 3385 835 / 835 Balance -2175.11 / -2043.01 -980.21 / -1050.21 -411.25 / -411.25 General: No apparent distress, - - intubated and sedated. follow some commands HEENT: Atraumatic, Normocephalic Oral: Moist Mucosa, No Gingival or Mucosal Lesions/ Ulcerations Neck: No Nodes, Thyroid Normal Size and Texture Lungs: Clear to auscultation, Normal air movement, No rhonchi, No wheeze, No rales Cardiovascular: Regular rate, Regular Rhythm, Normal S1, Normal S2, No murmurs Abdomen: Bowel Sounds Present, Soft, Non Tender, Non-Distended, No Hepato-splenomegaly Extremities: No edema, No Calf Tenderness Psych/Mental Status: Normal Affect, Appropriate Microbiology Past 72 Hours 08/10/20 12:30 Sputum, Induced/Lukens Gram Stain - Final 08/10/20 12:30 Sputum, Induced/Lukens Respiratory Culture - Preliminary Appears to be normal respiratory olivia. Further studies to follow. Laboratory Results 08/10/20 05:00: Diff Path Review Reviewed 08/10/20 11:58: POC Glucose 169 H 08/10/20 17:19: POC Glucose 199 H 08/10/20 17:40: Potassium 3.8 08/11/20 05:45: WBC 7.9, RBC 3.57 L, Hgb 10.2 L, Hct 32.9 L, MCV 92.2, MCH 28.6, MCHC 31.0 L, RDW Std Deviation 48.7 H, RDW Coeff of Brittanie 14.7 H, Plt Count 536 H, MPV 10.5, Neut % (Auto) Not Reportable, Absolute Neuts (auto) 5.9, Absolute Lymphs (auto) 1.50, Total Counted 100, Neutrophils % (Manual) 73 H, Band Neutrophils % 2, Lymphocytes % (Manual) 19, Monocytes % (Manual) 5, Metamyelocytes % 1, Diff Path Review Reviewed, Platelet Estimate ADEQUATE, RBC Morphology NORM C+C 08/11/20 05:45: Sodium 147 H, Potassium 4.2, Chloride 111 H, Carbon Dioxide 35.0 H, Anion Gap 1 L, BUN 34 H, Creatinine 0.72, Estim Creat Clear Calc 67.27, Est GFR (MDRD) Af Amer 105, Est GFR (MDRD) Non-Af 87, BUN/Creatinine Ratio 47.4 H, Glucose 113 H, Calcium 9.0 08/11/20 07:34: Specimen Type ART, Sample Site R Radial, pH 7.45, Bicarbonate Actual 32.9 H, Total CO2 34, Base Excess 9 H, O2 Saturation 89 L, O2 % 45, ABG pCO2 47.1 H, ABG pO2 56 L, Kwan Test Positive, O2 Delivery Device Adult Vent, Vent Mode CPAP/PS, POC PEEP 5, POC Pressure Suppt 5 Current Medications Acetaminophen (Acetaminophen 650 Mg/20 Ml Udc) 650 mg GT Q6H PRN PRN PRN Reason: Pain Score 1-10/Temp > 100.7 F Albuterol Sulfate (Albuterol 2.5 Mg/3 Ml Vial.Neb.) 2.5 mg INHALATION Q2H PRN PRN PRN Reason: Dyspnea, wheezing Apixaban (Apixaban 5 Mg Tablet) 5 mg PO BID [facility] Last Admin: 08/11/20 08:38 Dose: 5 mg Documented by: Chlorhexidine Gluconate (Chlorhexidine 15 Ml) 15 ml PO BID [facility] Last Admin: 08/11/20 08:38 Dose: 15 ml Documented by: Dexamethasone (Dexamethasone 2 Mg Tablet) 6 mg GT DAILY [facility] Stop: 08/14/20 10:01 Last Admin: 08/11/20 08:38 Dose: 6 mg Documented by: Famotidine (Famotidine 20 Mg Tablet) 20 mg GT BID [facility] Last Admin: 08/11/20 08:38 Dose: 20 mg Documented by: Meropenem 1 gm/ Sodium (Chloride) 120 mls @ 33 mls/hr IV Q8 [facility] Last Infusion: 08/11/20 12:14 Dose: Infused Documented by: Fentanyl Citrate 1,000 mcg/ (Sodium Chloride) 100 mls @ 20 mls/hr CONT INF .Q5H [facility]; Protocol Last Admin: 08/11/20 12:19 Dose: Not Given Documented by: Propofol (Diprivan) 1,000 mg in 100 mls @ 16.38 mls/hr CONT INF .Q6H7M [facility]; Protocol Last Admin: 08/11/20 12:23 Dose: Not Given Documented by: Enteral Nutritional Formula (Vital Af 1.2 Edwardo Liquid) 1,000 mls @ 60 mls/hr GT .[id number] [facility] Last Admin: 08/11/20 12:21 Dose: Not Given Documented by: Levothyroxine Sodium (Levothyroxine 25 Mcg Tablet) 25 mcg GT DAILY [facility] Last Admin: 08/11/20 08:38 Dose: 25 mcg Documented by: Metoclopramide HCl (Metoclopramide 5 Mg Tablet) 5 mg PO BIDAC [facility] Ondansetron HCl (Ondansetron 4 Mg/2 Ml Vial) 4 mg IV Q6H PRN PRN PRN Reason: NAUSEA/VOMITING Last Admin: 08/10/20 21:00 Dose: 4 mg Documented by: Sodium Chloride (0.9% Saline Lock 10 Ml Syringe) 10 - 40 ml IV UD PRN PRN Reason: SALINE FLUSH Last Admin: 08/11/20 08:45 Dose: 10 ml Documented by: STROKE Vital Signs/Narrative: Vital Signs Temp Pulse Resp BP BP Pulse Ox 08/11/20 12:00 38.0 C H 72 16 162/75 H 93 08/11/20 11:02 67 08/11/20 10:00 37.9 C H 68 16 132/68 H 94 08/11/20 09:22 69 16 92 08/11/20 09:00 74 16 146/92 H 93 Medical Necessity - Tobacco Use Smoking Status: Former smoker Tobacco Use: Cigarettes Assessment/Plan All Active Problems (Last Reviewed 07/16/20 @ 23:[address] Richard Gaona MD) COVID-19 (Acute) Hypoxia (Acute) Hypokalemia (Acute) Respiratory insufficiency (Acute) 1. COVID 19 Positive on 07/14/2020 Completed dexamethasone, remdesivir, and convalescent plasma back on Dexamethasone through the ID following 2. Acute hypoxic respiratory failure 2/2 COVID, PE, ALI, PNA Off paralytics on 45% Fio2 on Meropenem CCM following 3. JARRETT resolved 2/2 obstructed catheter 4. Septic shock resolved 2/2 COVID-19 and pneumonia off pressors 5. PE changed to apixaban 6. Prognosis: guarded DNRCCA anticipate continue prolonged recovery, though may not have much physiologic reserve to endure another medical insult. May need to consider LTAC Inpatient E&M: [id number] Subs Hosp L2
[2020-08-11] MEDS: Ondansetron 4 MG/2 ML Vial IV ×2 (13:00→20:09)
--- NOTE | 2020-08-11 15:11 | PCM.PN.ID ---
Patient Problems: Active and Suspected Problems (Last Reviewed 07/16/20 @ 23:[address] Richard Gaona MD) COVID-19 (Acute) Hypoxia (Acute) Hypokalemia (Acute) Respiratory insufficiency (Acute) Subjective: On vent, no fever - Physical Exam Vitals/I&O's: Vital Signs Temp Pulse Resp BP Pulse Ox 100.5 F H 66 16 129/74 H 93 08/11/20 14:00 08/11/20 15:00 08/11/20 15:00 08/11/20 15:00 08/11/20 15:00 Oxygen Flow Rate (L/min) 60 Oxygen Delivery Method Mechanical Ventilator Weight: 75.3 kg Body Mass Index (BMI) 28.9 Intake and Output for Last 24 Hours 08/09/20 08/10/20 08/11/20 23:59 23:59 23:59 Intake Total 2524.89 / 2856.99 2334.79 / 2334.79 423.75 / 423.75 Output Total 4700 / 4900 3315 / 3385 1235 / 1235 Balance -2175.11 / -2043.01 -980.21 / -1050.21 -811.25 / -811.25 General: No apparent distress Lungs: Diminished Cardiovascular: Regular rate, Regular Rhythm Abdomen: Soft, Non Tender, Non-Distended Skin: No rashes Microbiology Past 72 Hours 08/10/20 12:30 Sputum, Induced/Lukens Gram Stain - Final 08/10/20 12:30 Sputum, Induced/Lukens Respiratory Culture - Preliminary Appears to be normal respiratory olivia. Further studies to follow. Laboratory Results 08/10/20 11:58: POC Glucose 169 H 08/10/20 17:19: POC Glucose 199 H 08/10/20 17:40: Potassium 3.8 08/11/20 05:45: WBC 7.9, RBC 3.57 L, Hgb 10.2 L, Hct 32.9 L, MCV 92.2, MCH 28.6, MCHC 31.0 L, RDW Std Deviation 48.7 H, RDW Coeff of Brittanie 14.7 H, Plt Count 536 H, MPV 10.5, Neut % (Auto) Not Reportable, Absolute Neuts (auto) 5.9, Absolute Lymphs (auto) 1.50, Total Counted 100, Neutrophils % (Manual) 73 H, Band Neutrophils % 2, Lymphocytes % (Manual) 19, Monocytes % (Manual) 5, Metamyelocytes % 1, Diff Path Review Reviewed, Platelet Estimate ADEQUATE, RBC Morphology NORM C+C 08/11/20 05:45: Sodium 147 H, Potassium 4.2, Chloride 111 H, Carbon Dioxide 35.0 H, Anion Gap 1 L, BUN 34 H, Creatinine 0.72, Estim Creat Clear Calc 67.27, Est GFR (MDRD) Af Amer 105, Est GFR (MDRD) Non-Af 87, BUN/Creatinine Ratio 47.4 H, Glucose 113 H, Calcium 9.0 08/11/20 07:34: Specimen Type ART, Sample Site R Radial, pH 7.45, Bicarbonate Actual 32.9 H, Total CO2 34, Base Excess 9 H, O2 Saturation 89 L, O2 % 45, ABG pCO2 47.1 H, ABG pO2 56 L, Kwan Test Positive, O2 Delivery Device Adult Vent, Vent Mode CPAP/PS, POC PEEP 5, POC Pressure Suppt 5 Current Medications Acetaminophen (Acetaminophen 650 Mg/20 Ml Udc) 650 mg GT Q6H PRN PRN PRN Reason: Pain Score 1-10/Temp > 100.7 F Albuterol Sulfate (Albuterol 2.5 Mg/3 Ml Vial.Neb.) 2.5 mg INHALATION Q2H PRN PRN PRN Reason: Dyspnea, wheezing Apixaban (Apixaban 5 Mg Tablet) 5 mg PO BID [facility] Last Admin: 08/11/20 08:38 Dose: 5 mg Documented by: Chlorhexidine Gluconate (Chlorhexidine 15 Ml) 15 ml PO BID [facility] Last Admin: 08/11/20 08:38 Dose: 15 ml Documented by: Dexamethasone (Dexamethasone 2 Mg Tablet) 6 mg GT DAILY [facility] Stop: 08/14/20 10:01 Last Admin: 08/11/20 08:38 Dose: 6 mg Documented by: Famotidine (Famotidine 20 Mg Tablet) 20 mg GT BID [facility] Last Admin: 08/11/20 08:38 Dose: 20 mg Documented by: Meropenem 1 gm/ Sodium (Chloride) 120 mls @ 33 mls/hr IV Q8 [facility] Last Admin: 08/11/20 13:39 Dose: 33 mls/hr Documented by: Fentanyl Citrate 1,000 mcg/ (Sodium Chloride) 100 mls @ 20 mls/hr CONT INF .Q5H [facility]; Protocol Last Admin: 08/11/20 12:19 Dose: Not Given Documented by: Propofol (Diprivan) 1,000 mg in 100 mls @ 16.38 mls/hr CONT INF .Q6H7M [facility]; Protocol Last Admin: 08/11/20 12:23 Dose: Not Given Documented by: Enteral Nutritional Formula (Vital Af 1.2 Edwardo Liquid) 1,000 mls @ 60 mls/hr GT .[id number] [facility] Last Admin: 08/11/20 12:21 Dose: Not Given Documented by: Levothyroxine Sodium (Levothyroxine 25 Mcg Tablet) 25 mcg GT DAILY [facility] Last Admin: 08/11/20 08:38 Dose: 25 mcg Documented by: Metoclopramide HCl (Metoclopramide 5 Mg Tablet) 5 mg PO BIDAC [facility] Ondansetron HCl (Ondansetron 4 Mg/2 Ml Vial) 4 mg IV Q6H PRN PRN PRN Reason: NAUSEA/VOMITING Last Admin: 08/11/20 13:00 Dose: 4 mg Documented by: Sodium Chloride (0.9% Saline Lock 10 Ml Syringe) 10 - 40 ml IV UD PRN PRN Reason: SALINE FLUSH Last Admin: 08/11/20 08:45 Dose: 10 ml Documented by: Medical Necessity - Tobacco Use Smoking Status: Former smoker Tobacco Use: Cigarettes Route of nutrition/ use of supplements: [] Nutritional Intake: [] IV Site: [] Gr Catheter: [] - Assessment/Plan Antibiotics: [] Assessment/Plan: [] Active and Suspected Problems (Last Reviewed 07/16/20 @ 23:[address] Richard Gaona MD) COVID-19 (Acute) Hypoxia (Acute) Hypokalemia (Acute) Respiratory insufficiency (Acute) On dex, completed remdesivir. Got plasma 07/19. 07/30 felt worse with fever overnight, high O2 reqs. Started on empiric vanc/zosyn. Cxs neg, CT showed PE, and PCT was less than 0.2. Stopped vanc 08/01, stopped zosyn 08/02. Now on vent, empiric gisella started 08/04, paralyzed, pressor. O2 and PEEP much better. Off paralytics. Repeat sputum cx neg. CVC in since 08/05, consider changing to picc. Will follow
[2020-08-11] MEDS: Acetaminophen 650 MG/20 ML UDC GT (16:26)
[2020-08-11] MEDS: Metoclopramide 5 MG TABLET PO (16:26)
[2020-08-11] MEDS: Vital AF 1.2 Cal Liquid 1,000 ML 20 ML GT (20:30)
[2020-08-12] VITALS (34 sets, daily range): BP systolic 128–160; BP diastolic 66–93; PULSE 59–92; RESP 9–25; TEMP 37.1–38.3; O2SAT 90–100
[2020-08-12] MEDS: Vital AF 1.2 Cal Liquid 1,000 ML 30 ML GT (04:00)
[2020-08-12] MEDS: Furosemide 20 MG/2 ML VIAL IV ×2 (06:11→16:20)
[2020-08-12 07:18] LABS: Hematocrit 34.5 % (37-47); Hemoglobin 10.7 g/dL (12.0-15.0); Mean Corpuscular Volume 93.5 fL (81-99); POSITIVE COUNT YES; POSITIVE MORPHOLOGY YES; Platelet Count 609 K/mm3 (150-450); RBC Distribution Width CV 14.6 % (11.6-14.6); Red Blood Count 3.69 M/mm3 (4.2-5.4); White Blood Count 7.4 K/mm3 (4.4-11.0)
[2020-08-12 07:19] LABS: Differential Indicated MANUAL DIFF
[2020-08-12 07:31] LABS: ALB/GLOB Ratio 0.5 RATIO (0.9-2.4); AST(SGOT) 81 U/L (15-37); Alanine Aminotransfer ALT/SGPT 162 U/L (13-56); Alkaline Phosphatase 87 U/L (45-117); Anion Gap 2 (5-15); BUN 36 mg/dL (7-18); BUN/Creat Ratio 48.2 RATIO (10-20); Calcium,Total 9.4 mg/dL (8.5-10.1); Chloride 110 mmol/L (98-107); Creatinine, Serum 0.75 mg/dL (0.55-1.02); EST Glomerular Filtration Rate 83 mL/min (>60); Est Glom Filt Rate - Afr Amer 100 mL/min (>60); Estimated Creatinine Clearance 64.58 ml/min; Globulin 4.3 g/dL (2.2-4.2); Glucose 132 mg/dL (74-106); Protein, Total 6.3 g/dL (6.4-8.2); Sodium Level 146 mmol/L (136-145)
[2020-08-12 07:43] LABS: CPK Total, Creatine Kinase 22 U/L (26-192); Triglycerides 126 mg/dL
[2020-08-12 07:53] LABS: Hypochromasia 1+; Lymphocyte 18 % (19-41); Metamyelocyte 1 % (0-1); Monocyte 12 % (0-10); Myelocyte 4 (0-0); Neutrophil-Band 1 % (0-5); Neutrophil-Segmented 64 % (47-70); Polychromasia RARE; Total Cells Counted 100 (MANUAL DIFF); Toxic Granulation RARE
[2020-08-12 07:54] LABS: Platelet Estimate MOD INC (ADEQ)
[2020-08-12 07:55] LABS: Absolute Lymphocyte Count 1.32 X10^3/uL (0.83-4.51); Absolute Neutrophil Count 4.8 X10^3/uL (2.0-7.7)
[2020-08-12] MEDS: APIXABAN 5 MG TABLET PO ×2 (08:31→21:38)
[2020-08-12] MEDS: Levothyroxine 25 MCG TABLET GT (08:31)
[2020-08-12] MEDS: dexAMETHasone 2 MG TABLET 6 MG GT (08:31)
[2020-08-12] MEDS: Metoclopramide 5 MG TABLET PO ×2 (08:31→16:24)
[2020-08-12] MEDS: Famotidine 20 MG Tablet GT (08:32)
[2020-08-12] MEDS: 0.9% Saline Lock 10 ML Syringe IV ×2 (08:32→16:21)
[2020-08-12 09:36] LABS: Base Excess 10 mmol/L (-2 to +2); Bicarbonate 33.5 mmol/L (22-26); Blood Gas Specimen Type ART; FI02 45; Mode CPAP/PS; PEEP 5; PO2 60 mmHG (75-100); PS 5; SO2 92 % (95-99); Total Carbon Dioxide 35 mmol/L; pCO2 45.9 mmHg (35-45); pH 7.47 (7.35-7.45)
--- NOTE | 2020-08-12 10:04 | PCM.PN.INT ---
Subjective: Patient did well overnight. No acute issues were reported. Patient was delayed in getting a spontaneous breathing trial this morning secondary to sedation holiday, but when on sedation holiday denied any dyspnea or pain. Patient was able to pass a 1 hour trial and was successfully extubated to Airvo. General: Alert, Cooperative, No apparent distress, - - More interactive compared to previous. Actively shaking her head to answer HEENT: Atraumatic, PERRLA, EOMI, Normocephalic, - - Slight scleral injection without icterus Oral: Moist Mucosa, No Gingival or Mucosal Lesions/ Ulcerations Neck: Supple, No JVD, No Nodes, Trachea Midline Lungs: No rhonchi, No wheeze, No rales, Diminished, - - Symmetric expansion. No dullness to percussion. Cardiovascular: Regular rate, Regular Rhythm, Normal S1, Normal S2, No murmurs, No rub noted, No Gallop Abdomen: Bowel Sounds Present, Soft, Non Tender, Non-Distended Extremities: No clubbing, No cyanosis, Edema Skin: - - No change compared to previous Musculoskeletal: No Tenderness to Palpation of Joints or Extremities Lymphatic: No Cervical, Supraclavicular, or Inguinal Adenopathy Neurological: Cranial nerves II-XII grossly intact, Neuro grossly intact, Motor Exam 5/5 strength throughout Psych/Mental Status: Appropriate, Flat Affect Vital Signs Temp Pulse Resp BP Pulse Ox 37.1 C 89 12 157/74 H 93 08/12/20 06:00 08/12/20 07:28 08/12/20 07:28 08/12/20 07:00 08/12/20 07:28 Oxygen Flow Rate (L/min) 60 Oxygen Delivery Method Mechanical Ventilator Weight: 75.2 kg Body Mass Index (BMI) 28.9 Intake and Output for Last 24 Hours 08/10/20 08/11/20 08/12/20 23:59 23:59 23:59 Intake Total 2334.79 / 2334.79 635.25 / 642.75 265.0 / 265.0 Output Total 3315 / 3385 1845 / 1920 1695 / 1695 Balance -980.21 / -1050.21 -1209.75 / -1277.25 -1430.0 / -1430.0 Labs (Last 48 Hours) 08/10/20 08/10/20 08/10/20 05:00 11:58 17:19 WBC RBC Hgb Hct MCV MCH MCHC RDW Std Deviation RDW Coeff of Brittanie Plt Count MPV Neut % (Auto) Absolute Neuts (auto) Absolute Lymphs (auto) Total Counted Neutrophils % (Manual) Band Neutrophils % Lymphocytes % (Manual) Monocytes % (Manual) Metamyelocytes % Myelocytes % Diff Path Review Reviewed Toxic Granulation Platelet Estimate RBC Morphology Polychromasia Hypochromasia Specimen Type Sample Site pH Bicarbonate Actual Total CO2 Base Excess O2 Saturation O2 % ABG pCO2 ABG pO2 Kwan Test O2 Delivery Device Vent Mode POC PEEP POC Pressure Suppt Sodium Potassium Chloride Carbon Dioxide Anion Gap BUN Creatinine Estim Creat Clear Calc Est GFR (MDRD) Af Amer Est GFR (MDRD) Non-Af BUN/Creatinine Ratio Glucose Calcium Total Bilirubin AST ALT Alkaline Phosphatase Total Creatine Kinase Total Protein Albumin Globulin Albumin/Globulin Ratio Triglycerides POC Glucose 169 H 199 H 08/10/20 08/11/20 08/11/20 17:40 05:45 05:45 WBC 7.9 RBC 3.57 L Hgb 10.2 L Hct 32.9 L MCV 92.2 MCH 28.6 MCHC 31.0 L RDW Std Deviation 48.7 H RDW Coeff of Brittanie 14.7 H Plt Count 536 H MPV 10.5 Neut % (Auto) Not Reportable Absolute Neuts (auto) 5.9 Absolute Lymphs (auto) 1.50 Total Counted 100 Neutrophils % (Manual) 73 H Band Neutrophils % 2 Lymphocytes % (Manual) 19 Monocytes % (Manual) 5 Metamyelocytes % 1 Myelocytes % Diff Path Review Reviewed Toxic Granulation Platelet Estimate ADEQUATE RBC Morphology NORM C+C Polychromasia Hypochromasia Specimen Type Sample Site pH Bicarbonate Actual Total CO2 Base Excess O2 Saturation O2 % ABG pCO2 ABG pO2 Kwan Test O2 Delivery Device Vent Mode POC PEEP POC Pressure Suppt Sodium 147 H Potassium 3.8 4.2 Chloride 111 H Carbon Dioxide 35.0 H Anion Gap 1 L BUN 34 H Creatinine 0.72 Estim Creat Clear Calc 67.27 Est GFR (MDRD) Af Amer 105 Est GFR (MDRD) Non-Af 87 BUN/Creatinine Ratio 47.4 H Glucose 113 H Calcium 9.0 Total Bilirubin AST ALT Alkaline Phosphatase Total Creatine Kinase Total Protein Albumin Globulin Albumin/Globulin Ratio Triglycerides POC Glucose 08/11/20 08/12/20 08/12/20 07:34 05:15 05:15 WBC 7.4 RBC 3.69 L Hgb 10.7 L Hct 34.5 L MCV 93.5 MCH 29.0 MCHC 31.0 L RDW Std Deviation 49.0 H RDW Coeff of Brittanie 14.6 Plt Count 609 H MPV 11.0 Neut % (Auto) Not Reportable Absolute Neuts (auto) 4.8 Absolute Lymphs (auto) 1.32 Total Counted 100 Neutrophils % (Manual) 64 Band Neutrophils % 1 Lymphocytes % (Manual) 18 L Monocytes % (Manual) 12 H Metamyelocytes % 1 Myelocytes % 4 H Diff Path Review May foll Toxic Granulation RARE Platelet Estimate MOD INC RBC Morphology Polychromasia RARE Hypochromasia 1+ Specimen Type ART Sample Site R Radial pH 7.45 Bicarbonate Actual 32.9 H Total CO2 34 Base Excess 9 H O2 Saturation 89 L O2 % 45 ABG pCO2 47.1 H ABG pO2 56 L Kwan Test Positive O2 Delivery Device Adult Vent Vent Mode CPAP/PS POC PEEP 5 POC Pressure Suppt 5 Sodium Potassium Chloride Carbon Dioxide Anion Gap BUN Creatinine Estim Creat Clear Calc Est GFR (MDRD) Af Amer Est GFR (MDRD) Non-Af BUN/Creatinine Ratio Glucose Calcium Total Bilirubin AST ALT Alkaline Phosphatase Total Creatine Kinase 22 L Total Protein Albumin Globulin Albumin/Globulin Ratio Triglycerides 126 POC Glucose 08/12/20 08/12/20 05:15 09:29 WBC RBC Hgb Hct MCV MCH MCHC RDW Std Deviation RDW Coeff of Brittanie Plt Count MPV Neut % (Auto) Absolute Neuts (auto) Absolute Lymphs (auto) Total Counted Neutrophils % (Manual) Band Neutrophils % Lymphocytes % (Manual) Monocytes % (Manual) Metamyelocytes % Myelocytes % Diff Path Review Toxic Granulation Platelet Estimate RBC Morphology Polychromasia Hypochromasia Specimen Type ART Sample Site pH 7.47 H Bicarbonate Actual 33.5 H Total CO2 35 Base Excess 10 H O2 Saturation 92 L O2 % 45 ABG pCO2 45.9 H ABG pO2 60 L Kwan Test O2 Delivery Device Vent Mode CPAP/PS POC PEEP 5 POC Pressure Suppt 5 Sodium 146 H Potassium 4.0 Chloride 110 H Carbon Dioxide 34.0 H Anion Gap 2 L BUN 36 H Creatinine 0.75 Estim Creat Clear Calc 64.58 Est GFR (MDRD) Af Amer 100 Est GFR (MDRD) Non-Af 83 BUN/Creatinine Ratio 48.2 H Glucose 132 H Calcium 9.4 Total Bilirubin 0.30 AST 81 H ALT 162 H Alkaline Phosphatase 87 Total Creatine Kinase Total Protein 6.3 L Albumin 2.0 L Globulin 4.3 H Albumin/Globulin Ratio 0.5 L Triglycerides POC Glucose Microbiology 08/10/20 12:30 Sputum, Induced/Lukens Gram Stain - Final 08/10/20 12:30 Sputum, Induced/Lukens Respiratory Culture - Preliminary Appears to be normal respiratory olivia. Further studies to follow. Medical Necessity - Tobacco Use Smoking Status: Former smoker Tobacco Use: Cigarettes Assessment/Plan All Active Problems (Last Reviewed 07/16/20 @ 23:[address] Richard Gaona MD) COVID-19 (Acute) Hypoxia (Acute) Hypokalemia (Acute) Respiratory insufficiency (Acute) RECOMMENDATIONS: 1. Extubate patient to Airvo 2. Wean oxygen as tolerated 3. Diuretic challenge 4. Continue empiric antimicrobials and Decadron per infectious disease. 5. Continue Eliquis for anticoagulation 6. Increase activity as tolerated 7. Continue appropriate GI prophylaxis. IMPRESSIONS: 1. Acute hypoxemic respiratory failure secondary to COVID-19 pneumonia/pulmonary emboli The patient continues to be quite tenuous from a respiratory perspective with high oxygen requirement. The patient has already completed a treatment course of remdesivir and Decadron. She also received convalescent plasma. CTA chest obtained during this hospitalization did reveal small upper lobe pulmonary emboli. Patient appears to be significantly improved compared to previous. Patient was able to tolerate a spontaneous breathing trial and was extubated to Airvo. We will need to continue to have aggressive pulmonary toileting 2. Distributive shock Resolved. The patient did develop hemodynamic instability as a consequence of sedative medication use, requiring vasopressor initiation initially. Continue to monitor blood pressure closely. 3. Acute kidney injury Resolved. Suspect likely secondary to ischemic ATN in the setting of #1, 2 and possible postobstructive pathology given clogged Gr. Plan to continue current supportive measures, including vasopressor support to maintain hemodynamic stability. Continue to monitor urine output. No current indication for renal replacement therapy. Continue diuretic challenges as patient tolerates. 4. Advanced age/anxiety/hypothyroidism/hypertension/GERD Complicates care, management, recovery and prognosis. Continue current supportive measures. TIME: 33 minutes of critical care time, independent of procedures, was spent addressing the patient's acute hypoxemic respiratory failure, COVID-19 pneumonia, pulmonary emboli, acute kidney injury, distributive shock, review of all data and collaboration with the care team. (8 AM to 10 AM) [id number]: [id number] Critical care first hour
--- NOTE | 2020-08-12 10:52 | PCM.PN.HOSP ---
Patient Problems: Active and Suspected Problems (Last Reviewed 07/16/20 @ 23:[address] Richard Gaona MD) COVID-19 (Acute) Hypoxia (Acute) Hypokalemia (Acute) Respiratory insufficiency (Acute) Reason for Visit: COVID-19 Subjective: Extubated this AM. Currently she feels great. Vitals/I&O's: Vital Signs Temp Pulse Resp BP Pulse Ox 37.1 C 89 12 157/74 H 93 08/12/20 06:00 08/12/20 07:28 08/12/20 07:28 08/12/20 07:00 08/12/20 07:28 Oxygen Flow Rate (L/min) 60 Oxygen Delivery Method Mechanical Ventilator Weight: 75.2 kg Body Mass Index (BMI) 28.9 Intake and Output for Last 24 Hours 08/10/20 08/11/20 08/12/20 23:59 23:59 23:59 Intake Total 2334.79 / 2334.79 635.25 / 642.75 265.0 / 265.0 Output Total 3315 / 3385 1845 / 1920 1695 / 1695 Balance -980.21 / -1050.21 -1209.75 / -1277.25 -1430.0 / -1430.0 General: Alert, No apparent distress, - - on AirVo Neck: No Nodes, Thyroid Normal Size and Texture Lungs: Diminished, - - coarse breath sounds bilaterally Cardiovascular: Regular rate, Regular Rhythm, Normal S1, Normal S2, No murmurs Abdomen: Bowel Sounds Present, Soft, Non Tender, Non-Distended, No Hepato-splenomegaly Extremities: No edema, No Calf Tenderness Skin: No rashes, No breakdown Musculoskeletal: No Tenderness to Palpation of Joints or Extremities, No Muscle Wasting Psych/Mental Status: Normal Affect, Appropriate Microbiology Past 72 Hours 08/10/20 12:30 Sputum, Induced/Lukens Gram Stain - Final 08/10/20 12:30 Sputum, Induced/Lukens Respiratory Culture - Preliminary Appears to be normal respiratory olivia. Further studies to follow. Laboratory Results 08/11/20 05:45: Diff Path Review Reviewed 08/12/20 05:15: Total Creatine Kinase 22 L, Triglycerides 126 08/12/20 05:15: WBC 7.4, RBC 3.69 L, Hgb 10.7 L, Hct 34.5 L, MCV 93.5, MCH 29.0, MCHC 31.0 L, RDW Std Deviation 49.0 H, RDW Coeff of Brittanie 14.6, Plt Count 609 H, MPV 11.0, Neut % (Auto) Not Reportable, Absolute Neuts (auto) 4.8, Absolute Lymphs (auto) 1.32, Total Counted 100, Neutrophils % (Manual) 64, Band Neutrophils % 1, Lymphocytes % (Manual) 18 L, Monocytes % (Manual) 12 H, Metamyelocytes % 1, Myelocytes % 4 H, Diff Path Review May foll, Toxic Granulation RARE, Platelet Estimate MOD INC, Polychromasia RARE, Hypochromasia 1+ 08/12/20 05:15: Sodium 146 H, Potassium 4.0, Chloride 110 H, Carbon Dioxide 34.0 H, Anion Gap 2 L, BUN 36 H, Creatinine 0.75, Estim Creat Clear Calc 64.58, Est GFR (MDRD) Af Amer 100, Est GFR (MDRD) Non-Af 83, BUN/Creatinine Ratio 48.2 H, Glucose 132 H, Calcium 9.4, Total Bilirubin 0.30, AST 81 H, ALT 162 H, Alkaline Phosphatase 87, Total Protein 6.3 L, Albumin 2.0 L, Globulin 4.3 H, Albumin/Globulin Ratio 0.5 L 08/12/20 09:29: Specimen Type ART, pH 7.47 H, Bicarbonate Actual 33.5 H, Total CO2 35, Base Excess 10 H, O2 Saturation 92 L, O2 % 45, ABG pCO2 45.9 H, ABG pO2 60 L, Vent Mode CPAP/PS, POC PEEP 5, POC Pressure Suppt 5 Current Medications Acetaminophen (Acetaminophen 650 Mg/20 Ml Udc) 650 mg GT Q6H PRN PRN PRN Reason: Pain Score 1-10/Temp > 100.7 F Last Admin: 08/11/20 16:26 Dose: 650 mg Documented by: Albuterol Sulfate (Albuterol 2.5 Mg/3 Ml Vial.Neb.) 2.5 mg INHALATION Q2H PRN PRN PRN Reason: Dyspnea, wheezing Apixaban (Apixaban 5 Mg Tablet) 5 mg PO BID [facility] Last Admin: 08/12/20 08:31 Dose: 5 mg Documented by: Chlorhexidine Gluconate (Chlorhexidine 15 Ml) 15 ml PO BID [facility] Last Admin: 08/11/20 22:00 Dose: 15 ml Documented by: Dexamethasone (Dexamethasone 2 Mg Tablet) 6 mg GT DAILY [facility] Stop: 08/14/20 10:01 Last Admin: 08/12/20 08:31 Dose: 6 mg Documented by: Famotidine (Famotidine 20 Mg Tablet) 20 mg GT BID [facility] Last Admin: 08/12/20 08:32 Dose: 20 mg Documented by: Furosemide (Furosemide 20 Mg/2 Ml Vial) 20 mg IV BID@1000,1700 [facility] Last Admin: 08/12/20 06:11 Dose: 20 mg Documented by: Meropenem 1 gm/ Sodium (Chloride) 120 mls @ 33 mls/hr IV Q8 [facility] Last Admin: 08/12/20 08:45 Dose: 33 mls/hr Documented by: Fentanyl Citrate 1,000 mcg/ (Sodium Chloride) 100 mls @ 20 mls/hr CONT INF .Q5H [facility]; Protocol Last Admin: 08/12/20 08:07 Dose: Not Given Documented by: Propofol (Diprivan) 1,000 mg in 100 mls @ 16.38 mls/hr CONT INF .Q6H7M [facility]; Protocol Last Admin: 08/12/20 08:08 Dose: Not Given Documented by: Enteral Nutritional Formula (Vital Af 1.2 Edwardo Liquid) 1,000 mls @ 60 mls/hr GT .[id number] [facility] Last Admin: 08/12/20 04:00 Dose: 30 mls/hr Documented by: Levothyroxine Sodium (Levothyroxine 25 Mcg Tablet) 25 mcg GT DAILY [facility] Last Admin: 08/12/20 08:31 Dose: 25 mcg Documented by: Metoclopramide HCl (Metoclopramide 5 Mg Tablet) 5 mg PO BIDAC [facility] Last Admin: 08/12/20 08:31 Dose: 5 mg Documented by: Ondansetron HCl (Ondansetron 4 Mg/2 Ml Vial) 4 mg IV Q6H PRN PRN PRN Reason: NAUSEA/VOMITING Last Admin: 08/11/20 20:09 Dose: 4 mg Documented by: Sodium Chloride (0.9% Saline Lock 10 Ml Syringe) 10 - 40 ml IV UD PRN PRN Reason: SALINE FLUSH Last Admin: 11/26/20 08:32 Dose: 40 ml Documented by: STROKE Vital Signs/Narrative: Vital Signs Pulse Resp BP Pulse Ox 08/12/20 07:28 89 12 93 08/12/20 07:00 65 16 157/74 H 91 Medical Necessity - Tobacco Use Smoking Status: Former smoker Tobacco Use: Cigarettes Assessment/Plan All Active Problems (Last Reviewed 07/16/20 @ 23:[address] Richard Gaona MD) COVID-19 (Acute) Hypoxia (Acute) Hypokalemia (Acute) Respiratory insufficiency (Acute) 1. COVID 19 Positive on 07/14/2020 Completed dexamethasone, remdesivir, and convalescent plasma back on Dexamethasone through the ID following 2. Acute hypoxic respiratory failure Extubated 08/12 2/2 COVID, PE, ALI, PNA on Meropenem CCM following 3. JARRETT resolved 2/2 obstructed catheter 4. Septic shock resolved 2/2 COVID-19 and pneumonia off pressors 5. PE changed to apixaban, treat for 6 months 6. Prognosis: guarded [id number] anticipate continue prolonged recovery, though may not have much physiologic reserve to endure another significant medical insult. May need to consider LTAC Inpatient E&M: 77023 Subs Hosp L2
[2020-08-12] MEDS: HYDROcodone Bitartrate/Apap 5/325 Tablet PO ×2 (14:18→19:39)
[2020-08-12] MEDS: Menthol/Lanolin/Calamine/Znox 113 GM Tube 1 APPLIC TOPICAL ×2 (16:17→21:38)
[2020-08-12] MEDS: Famotidine 20 MG Tablet PO (21:38)
[2020-08-13] VITALS (32 sets, daily range): BP systolic 103–149; BP diastolic 65–105; PULSE 52–98; RESP 10–18; TEMP 36.4–37.6; O2SAT 80–99
[2020-08-13] MEDS: HYDROcodone Bitartrate/Apap 5/325 Tablet PO ×4 (01:53→22:06)
[2020-08-13] MEDS: Menthol/Lanolin/Calamine/Znox 113 GM Tube 1 APPLIC TOPICAL ×3 (05:00→20:41)
[2020-08-13 05:50] LABS: Absolute Lymphocyte Count 1.16 X10^3/uL (0.83-4.51); Absolute Neutrophil Count 6.1 X10^3/uL (2.0-7.7); Basophil# 0.02 X10^3/uL; Basophil% 0.2 % (0-1); Eosinophil# 0.01 X10^3/uL; Eosinophils% 0.1 % (0-5); Hematocrit 33.4 % (37-47); Hemoglobin 10.6 g/dL (12.0-15.0); Lymphocyte # 1.16 X10^3/ul (4.0); Lymphocyte % 13.1 % (19-41); Mean Corp Hgb Conc 31.7 g/dL (32-36); Mean Corpuscular Hgb 29.3 pg (27.0-32.0); Mean Corpuscular Volume 92.3 fL (81-99); Mean Platelet Vol. 10.8 fl (6.2-12.0); Monocyte# 1.11 X10^3/uL; Monocyte% 12.5 % (0-10); NRBC Flagged by Analyzer 0.8 % (0-5); Neutrophil # 6.14 X10^3/uL (2.7-7.7); Neutrophil % 69.4 % (47-70); Platelet Count 614 K/mm3 (150-450); RBC Distribution Width CV 14.3 % (11.6-14.6); RBC Distribution Width SD 47.9 fl (35.1-43.9); Red Blood Count 3.62 M/mm3 (4.2-5.4); White Blood Count 8.9 K/mm3 (4.4-11.0)
[2020-08-13 06:00] LABS: ALB/GLOB Ratio 0.5 RATIO (0.9-2.4); AST(SGOT) 119 U/L (15-37); Alanine Aminotransfer ALT/SGPT 248 U/L (13-56); Alkaline Phosphatase 82 U/L (45-117); Anion Gap 4 (5-15); BUN 36 mg/dL (7-18); BUN/Creat Ratio 51.9 RATIO (10-20); Calcium,Total 9.1 mg/dL (8.5-10.1); Chloride 102 mmol/L (98-107); Creatinine, Serum 0.69 mg/dL (0.55-1.02); EST Glomerular Filtration Rate 90 mL/min (>60); Est Glom Filt Rate - Afr Amer 109 mL/min (>60); Estimated Creatinine Clearance 70.19 ml/min; Globulin 4.1 g/dL (2.2-4.2); Glucose 101 mg/dL (74-106); Potassium 3.3 mmol/L (3.5-5.1); Protein, Total 6.1 g/dL (6.4-8.2); Sodium Level 143 mmol/L (136-145)
--- NOTE | 2020-08-13 07:32 | PN_ITS ---
Subjective: Patient did well overnight. Patient remains intermittently confused, but oxygenation has improved. Patient denies any current chest pain, but does have her chronic back pain. Patient denies any paresthesia and feels her strength is improving. Patient does report she is thirsty. General: Alert, Cooperative, No apparent distress, Disoriented, - - No conversational dyspnea HEENT: Atraumatic, PERRLA, EOMI, Normocephalic, - - Slight scleral injection without icterus Oral: Moist Mucosa, No Gingival or Mucosal Lesions/ Ulcerations Neck: Supple, No JVD, No Nodes, Trachea Midline Lungs: No rhonchi, No wheeze, No rales, Diminished, - - Fair effort Cardiovascular: Regular rate, Regular Rhythm, Normal S1, Normal S2, No murmurs, No rub noted, No Gallop Abdomen: Bowel Sounds Present, Soft, Non Tender, Non-Distended Extremities: No clubbing, No cyanosis, Edema Skin: - - No change from previous Musculoskeletal: No Tenderness to Palpation of Joints or Extremities Lymphatic: No Cervical, Supraclavicular, or Inguinal Adenopathy Neurological: Cranial nerves II-XII grossly intact, Neuro grossly intact, - - Moves all extremities. Some weakness appreciated. Psych/Mental Status: Impulsive, Restless Vital Signs Temp Pulse Resp BP Pulse Ox 36.4 C L 63 13 142/80 H 90 08/13/20 06:00 08/13/20 06:00 08/13/20 06:00 08/13/20 06:00 08/13/20 06:00 Oxygen Flow Rate (L/min) 54 Oxygen Delivery Method Airvo Weight: 74.7 kg Body Mass Index (BMI) 28.9 Intake and Output for Last 24 Hours 08/11/20 08/12/20 08/13/20 23:59 23:59 23:59 Intake Total 635.25 / 642.75 1220.0 / 1220.0 220 / 220 Output Total 1845 / 1920 3370 / 3370 425 / 425 Balance -1209.75 / -1277.25 -2150.0 / -2150.0 -205 / -205 Labs (Last 48 Hours) 08/11/20 08/11/20 08/12/20 05:45 07:34 05:15 WBC RBC Hgb Hct MCV MCH MCHC RDW Std Deviation RDW Coeff of Brittanie Plt Count MPV Immature Gran % (Auto) Neut % (Auto) Lymph % (Auto) [place] % (Auto) Eos % (Auto) Baso % (Auto) Absolute Neuts (auto) Absolute Lymphs (auto) Total Counted Neutrophils % (Manual) Band Neutrophils % Lymphocytes % (Manual) Monocytes % (Manual) Metamyelocytes % Myelocytes % Nucleated RBC % Diff Path Review Reviewed Toxic Granulation Platelet Estimate Polychromasia Hypochromasia Specimen Type ART Sample Site R Radial pH 7.45 Bicarbonate Actual 32.9 H Total CO2 34 Base Excess 9 H O2 Saturation 89 L O2 % 45 ABG pCO2 47.1 H ABG pO2 56 L Kwan Test Positive O2 Delivery Device Adult Vent Vent Mode CPAP/PS POC PEEP 5 POC Pressure Suppt 5 Sodium Potassium Chloride Carbon Dioxide Anion Gap BUN Creatinine Estim Creat Clear Calc Est GFR (MDRD) Af Amer Est GFR (MDRD) Non-Af BUN/Creatinine Ratio Glucose Calcium Total Bilirubin AST ALT Alkaline Phosphatase Total Creatine Kinase 22 L Total Protein Albumin Globulin Albumin/Globulin Ratio Triglycerides 126 08/12/20 08/12/20 08/12/20 05:15 05:15 09:29 WBC 7.4 RBC 3.69 L Hgb 10.7 L Hct 34.5 L MCV 93.5 MCH 29.0 MCHC 31.0 L RDW Std Deviation 49.0 H RDW Coeff of Brittanie 14.6 Plt Count 609 H MPV 11.0 Immature Gran % (Auto) Neut % (Auto) Not Reportable Lymph % (Auto) [place] % (Auto) Eos % (Auto) Baso % (Auto) Absolute Neuts (auto) 4.8 Absolute Lymphs (auto) 1.32 Total Counted 100 Neutrophils % (Manual) 64 Band Neutrophils % 1 Lymphocytes % (Manual) 18 L Monocytes % (Manual) 12 H Metamyelocytes % 1 Myelocytes % 4 H Nucleated RBC % Diff Path Review May foll Toxic Granulation RARE Platelet Estimate MOD INC Polychromasia RARE Hypochromasia 1+ Specimen Type ART Sample Site pH 7.47 H Bicarbonate Actual 33.5 H Total CO2 35 Base Excess 10 H O2 Saturation 92 L O2 % 45 ABG pCO2 45.9 H ABG pO2 60 L Kwan Test O2 Delivery Device Vent Mode CPAP/PS POC PEEP 5 POC Pressure Suppt 5 Sodium 146 H Potassium 4.0 Chloride 110 H Carbon Dioxide 34.0 H Anion Gap 2 L BUN 36 H Creatinine 0.75 Estim Creat Clear Calc 64.58 Est GFR (MDRD) Af Amer 100 Est GFR (MDRD) Non-Af 83 BUN/Creatinine Ratio 48.2 H Glucose 132 H Calcium 9.4 Total Bilirubin 0.30 AST 81 H ALT 162 H Alkaline Phosphatase 87 Total Creatine Kinase Total Protein 6.3 L Albumin 2.0 L Globulin 4.3 H Albumin/Globulin Ratio 0.5 L Triglycerides 08/13/20 08/13/20 04:00 04:00 WBC 8.9 RBC 3.62 L Hgb 10.6 L Hct 33.4 L MCV 92.3 MCH 29.3 MCHC 31.7 L RDW Std Deviation 47.9 H RDW Coeff of Brittanie 14.3 Plt Count 614 H MPV 10.8 Immature Gran % (Auto) 4.700 H Neut % (Auto) 69.4 Lymph % (Auto) 13.1 L [place] % (Auto) 12.5 H Eos % (Auto) 0.1 Baso % (Auto) 0.2 Absolute Neuts (auto) 6.1 Absolute Lymphs (auto) 1.16 Total Counted Neutrophils % (Manual) Band Neutrophils % Lymphocytes % (Manual) Monocytes % (Manual) Metamyelocytes % Myelocytes % Nucleated RBC % 0.8 Diff Path Review Toxic Granulation Platelet Estimate Polychromasia Hypochromasia Specimen Type Sample Site pH Bicarbonate Actual Total CO2 Base Excess O2 Saturation O2 % ABG pCO2 ABG pO2 Kwan Test O2 Delivery Device Vent Mode POC PEEP POC Pressure Suppt Sodium 143 Potassium 3.3 L Chloride 102 Carbon Dioxide 37.0 H Anion Gap 4 L BUN 36 H Creatinine 0.69 Estim Creat Clear Calc 70.19 Est GFR (MDRD) Af Amer 109 Est GFR (MDRD) Non-Af 90 BUN/Creatinine Ratio 51.9 H Glucose 101 Calcium 9.1 Total Bilirubin 0.30 AST 119 H ALT 248 H Alkaline Phosphatase 82 Total Creatine Kinase Total Protein 6.1 L Albumin 2.0 L Globulin 4.1 Albumin/Globulin Ratio 0.5 L Triglycerides Microbiology 08/12/20 17:30 Stool C. difficile DNA Amplification - Final 08/10/20 12:30 Sputum, Induced/Lukens Gram Stain - Final 08/10/20 12:30 Sputum, Induced/Lukens Respiratory Culture - Final Presumptive C albicans Medical Necessity - Tobacco Use Smoking Status: Former smoker Tobacco Use: Cigarettes Assessment/Plan All Active Problems (Last Reviewed 07/16/20 @ 23:[address] Richard Gaona MD) COVID-19 (Acute) Hypoxia (Acute) Hypokalemia (Acute) Respiratory insufficiency (Acute) RECOMMENDATIONS: 1. Attempt nasal cannula oxygen later today 2. Wean oxygen as tolerated 3. Continue diuretics 4. Continue empiric antimicrobials and Decadron per infectious disease. 5. Continue Eliquis for anticoagulation 6. Increase activity as tolerated 7. Possible transfer out of the intensive care unit IMPRESSIONS: 1. Acute hypoxemic respiratory failure secondary to COVID-19 pneumonia/pulmonary emboli Patient has significantly improved from a respiratory standpoint. The patient has already completed a treatment course of remdesivir and Decadron. She also received convalescent plasma. CTA chest obtained during this hospitalization did reveal small upper lobe pulmonary emboli. Patient currently on Airvo and tolerating well. Will attempt nasal cannula oxygen later today. Continue with aggressive pulmonary toileting. Antibiotic course per infectious disease. 2. Distributive shock Resolved. The patient did develop hemodynamic instability as a consequence of sedative medication use, requiring vasopressor initiation initially. Continue to monitor blood pressure closely. 3. Acute kidney injury Resolved. Suspect likely secondary to ischemic ATN in the setting of #1, 2 and possible postobstructive pathology given clogged Gr. Plan to continue current supportive measures, including vasopressor support to maintain hemodynamic stability. Continue to monitor urine output. No current indication for renal replacement therapy. Continue diuretic challenges as patient tolerates. 4. Advanced age/anxiety/hypothyroidism/hypertension/GERD/metabolic encephalopathy Complicates care, management, recovery and prognosis. Continue current supportive measures. Continue delirium measures. Patient may improve after discontinuation of Decadron. Continue to treat chronic back pain Inpatient E&M: [id number] [facility] L3
[2020-08-13] MEDS: Furosemide 20 MG/2 ML VIAL IV ×2 (08:14→17:04)
[2020-08-13] MEDS: 0.9% Saline Lock 10 ML Syringe IV (08:22)
[2020-08-13] MEDS: dexAMETHasone 2 MG TABLET 6 MG PO (08:23)
[2020-08-13] MEDS: Metoclopramide 5 MG TABLET PO ×2 (08:24→17:04)
[2020-08-13] MEDS: APIXABAN 5 MG TABLET PO ×2 (08:24→20:29)
[2020-08-13] MEDS: Famotidine 20 MG Tablet PO ×2 (08:24→20:28)
[2020-08-13] MEDS: Levothyroxine 25 MCG TABLET PO (08:24)
--- NOTE | 2020-08-13 12:13 | PN_ITS ---
Patient Problems: Active and Suspected Problems (Last Reviewed 07/16/20 @ 23:[address] Richard Gaona MD) COVID-19 (Acute) Hypoxia (Acute) Hypokalemia (Acute) Respiratory insufficiency (Acute) Reason for Visit: COVID-19 Subjective: Breathing well on Airvo. Vitals/I&O's: Vital Signs Temp Pulse Resp BP Pulse Ox 36.8 C 88 10 L 132/80 H 94 08/13/20 08:00 08/13/20 10:00 08/13/20 10:00 08/13/20 10:00 08/13/20 10:00 Oxygen Flow Rate (L/min) 60 Oxygen Delivery Method Airvo Weight: 74.7 kg Body Mass Index (BMI) 28.9 Intake and Output for Last 24 Hours 08/11/20 08/12/20 08/13/20 23:59 23:59 23:59 Intake Total 635.25 / 642.75 1220.0 / 1220.0 460 / 460 Output Total 1845 / 1920 3370 / 3370 1175 / 1175 Balance -1209.75 / -1277.25 -2150.0 / -2150.0 -715 / -715 General: Alert, No apparent distress HEENT: Atraumatic, Normocephalic Oral: Moist Mucosa, No Gingival or Mucosal Lesions/ Ulcerations Neck: No Nodes, Thyroid Normal Size and Texture Lungs: Clear to auscultation, Normal air movement, No rhonchi, No wheeze, No rales Cardiovascular: Regular rate, Regular Rhythm, Normal S1, Normal S2, No murmurs Abdomen: Bowel Sounds Present, Soft, Non Tender, Non-Distended, No Hepato- splenomegaly Extremities: No edema, No Calf Tenderness Psych/Mental Status: Normal Affect, Appropriate Microbiology Past 72 Hours 08/12/20 17:30 Stool C. difficile DNA Amplification - Final 08/10/20 12:30 Sputum, Induced/Lukens Gram Stain - Final 08/10/20 12:30 Sputum, Induced/Lukens Respiratory Culture - Final Presumptive C albicans Laboratory Results 08/13/20 04:00: WBC 8.9, RBC 3.62 L, Hgb 10.6 L, Hct 33.4 L, MCV 92.3, MCH 29.3, MCHC 31.7 L, RDW Std Deviation 47.9 H, RDW Coeff of Brittanie 14.3, Plt Count 614 H, MPV 10.8, Immature Gran % (Auto) 4.700 H, Neut % (Auto) 69.4, Lymph % (Auto) 13.1 L, [place] % (Auto) 12.5 H, Eos % (Auto) 0.1, Baso % (Auto) 0.2, Absolute Neuts (auto) 6.1, Absolute Lymphs (auto) 1.16, Nucleated RBC % 0.8 08/13/20 04:00: Sodium 143, Potassium 3.3 L, Chloride 102, Carbon Dioxide 37.0 H , Anion Gap 4 L, BUN 36 H, Creatinine 0.69, Estim Creat Clear Calc 70.19, Est GFR (MDRD) Af Amer 109, Est GFR (MDRD) Non-Af 90, BUN/Creatinine Ratio 51.9 H, Glucose 101, Calcium 9.1, Total Bilirubin 0.30, AST 119 H, ALT 248 H, Alkaline Phosphatase 82, Total Protein 6.1 L, Albumin 2.0 L, Globulin 4.1, Albumin/Globulin Ratio 0.5 L Current Medications Acetaminophen (Acetaminophen 325 Mg Tablet) 650 mg PO Q6H PRN PRN PRN Reason: Pain Score 1-10/Temp > 100.7 F Hydrocodone Bitart/Acetaminophen (Hydrocodone Bitartrate/Apap 5/325 Tablet) 1 tablet PO Q4H PRN PRN PRN Reason: Pain Score 6-10 Last Admin: 08/13/20 11:35 Dose: 1 tablet Documented by: Albuterol Sulfate (Albuterol 2.5 Mg/3 Ml Vial.Neb.) 2.5 mg INHALATION Q2H PRN PRN PRN Reason: Dyspnea, wheezing Apixaban (Apixaban 5 Mg Tablet) 5 mg PO BID [facility] Last Admin: 08/13/20 08:24 Dose: 5 mg Documented by: Calamine/Phenol (Menthol/Lanolin/Calamine/Znox 113 Gm Tube) 1 applic TOPICAL TID [facility]; Protocol Last Admin: 08/13/20 05:00 Dose: 1 applicatio Documented by: Famotidine (Famotidine 20 Mg Tablet) 20 mg PO BID [facility] Last Admin: 08/13/20 08:24 Dose: 20 mg Documented by: Furosemide (Furosemide 20 Mg/2 Ml Vial) 20 mg IV BID@1000,1700 [facility] Last Admin: 08/13/20 08:14 Dose: 20 mg Documented by: Meropenem 1 gm/ Sodium (Chloride) 120 mls @ 33 mls/hr IV Q8 [facility] Last Infusion: 08/13/20 09:17 Dose: Infused Documented by: Levothyroxine Sodium (Levothyroxine 25 Mcg Tablet) 25 mcg PO DAILY [facility] Last Admin: 08/13/20 08:24 Dose: 25 mcg Documented by: Metoclopramide HCl (Metoclopramide 5 Mg Tablet) 5 mg PO BIDAC [facility] Last Admin: 08/13/20 08:24 Dose: 5 mg Documented by: Ondansetron HCl (Ondansetron 4 Mg/2 Ml Vial) 4 mg IV Q6H PRN PRN PRN Reason: NAUSEA/VOMITING Last Admin: 08/11/20 20:09 Dose: 4 mg Documented by: Sodium Chloride (0.9% Saline Lock 10 Ml Syringe) 10 - 40 ml IV UD PRN PRN Reason: SALINE FLUSH Last Admin: 08/13/20 08:22 Dose: 40 ml Documented by: STROKE Vital Signs/Narrative: Vital Signs Pulse Resp BP Pulse Ox 08/13/20 10:00 88 10 L 132/80 H 94 08/13/20 09:00 91 18 141/105 H 87 Medical Necessity - Tobacco Use Smoking Status: Former smoker Tobacco Use: Cigarettes Assessment/Plan All Active Problems (Last Reviewed 07/16/20 @ 23:[address] Richard Gaona MD) COVID-19 (Acute) Hypoxia (Acute) Hypokalemia (Acute) Respiratory insufficiency (Acute) 1. COVID 19 Positive on 07/14/2020 Completed dexamethasone x 2, remdesivir, and convalescent plasma ID following, defer to ID about discontinuation of isolation 2. Acute hypoxic respiratory failure improving tolerating Airvo Extubated 08/12 2/2 COVID, PE, ALI, PNA on Meropenem CCM following 3. JARRETT resolved 2/2 obstructed catheter 4. Septic shock resolved 2/2 COVID-19 and pneumonia off pressors 5. PE changed to apixaban, treat for 6 months 6. Prognosis: guarded DNRCCA anticipate continue prolonged recovery, though may not have much physiologic reserve to endure another significant medical insult. May need to consider LTAC 7. Dysphagia continue modified diet speech therapy Inpatient E&M: [id number] Subs Hosp L2
--- NOTE | 2020-08-13 14:27 | PCM.PN.ID ---
Patient Problems: Active and Suspected Problems (Last Reviewed 07/16/20 @ 23:[address] Richard Gaona MD) COVID-19 (Acute) Hypoxia (Acute) Hypokalemia (Acute) Respiratory insufficiency (Acute) Subjective: Feeling better, off vent, no fever, bringing up some sputum. - Physical Exam Vitals/I&O's: Vital Signs Temp Pulse Resp BP Pulse Ox 98.2 F 88 10 L 132/80 H 94 08/13/20 08:00 08/13/20 10:00 08/13/20 10:00 08/13/20 10:00 08/13/20 10:00 Oxygen Flow Rate (L/min) 60 Oxygen Delivery Method Airvo Weight: 74.7 kg Body Mass Index (BMI) 28.9 Intake and Output for Last 24 Hours 08/11/20 08/12/20 08/13/20 23:59 23:59 23:59 Intake Total 635.25 / 642.75 1220.0 / 1220.0 460 / 460 Output Total 1845 / 1920 3370 / 3370 1375 / 1375 Balance -1209.75 / -1277.25 -2150.0 / -2150.0 -915 / -915 General: Alert, Cooperative, No apparent distress Lungs: Diminished Cardiovascular: Regular rate, Regular Rhythm Abdomen: Soft, Non Tender, Non-Distended Skin: No rashes Microbiology Past 72 Hours 08/12/20 17:30 Stool C. difficile DNA Amplification - Final 08/10/20 12:30 Sputum, Induced/Lukens Gram Stain - Final 08/10/20 12:30 Sputum, Induced/Lukens Respiratory Culture - Final Presumptive C albicans Laboratory Results 08/13/20 04:00: WBC 8.9, RBC 3.62 L, Hgb 10.6 L, Hct 33.4 L, MCV 92.3, MCH 29.3, MCHC 31.7 L, RDW Std Deviation 47.9 H, RDW Coeff of Brittanie 14.3, Plt Count 614 H, MPV 10.8, Immature Gran % (Auto) 4.700 H, Neut % (Auto) 69.4, Lymph % (Auto) 13.1 L, [place] % (Auto) 12.5 H, Eos % (Auto) 0.1, Baso % (Auto) 0.2, Absolute Neuts (auto) 6.1, Absolute Lymphs (auto) 1.16, Nucleated RBC % 0.8 08/13/20 04:00: Sodium 143, Potassium 3.3 L, Chloride 102, Carbon Dioxide 37.0 H, Anion Gap 4 L, BUN 36 H, Creatinine 0.69, Estim Creat Clear Calc 70.19, Est GFR (MDRD) Af Amer 109, Est GFR (MDRD) Non-Af 90, BUN/Creatinine Ratio 51.9 H, Glucose 101, Calcium 9.1, Total Bilirubin 0.30, AST 119 H, ALT 248 H, Alkaline Phosphatase 82, Total Protein 6.1 L, Albumin 2.0 L, Globulin 4.1, Albumin/Globulin Ratio 0.5 L Current Medications Acetaminophen (Acetaminophen 325 Mg Tablet) 650 mg PO Q6H PRN PRN PRN Reason: Pain Score 1-10/Temp > 100.7 F Hydrocodone Bitart/Acetaminophen (Hydrocodone Bitartrate/Apap 5/325 Tablet) 1 tablet PO Q4H PRN PRN PRN Reason: Pain Score 6-10 Last Admin: 08/13/20 11:35 Dose: 1 tablet Documented by: Albuterol Sulfate (Albuterol 2.5 Mg/3 Ml Vial.Neb.) 2.5 mg INHALATION Q2H PRN PRN PRN Reason: Dyspnea, wheezing Apixaban (Apixaban 5 Mg Tablet) 5 mg PO BID [facility] Last Admin: 08/13/20 08:24 Dose: 5 mg Documented by: Calamine/Phenol (Menthol/Lanolin/Calamine/Znox 113 Gm Tube) 1 applic TOPICAL TID [facility]; Protocol Last Admin: 08/13/20 05:00 Dose: 1 applicatio Documented by: Famotidine (Famotidine 20 Mg Tablet) 20 mg PO BID [facility] Last Admin: 08/13/20 08:24 Dose: 20 mg Documented by: Furosemide (Furosemide 20 Mg/2 Ml Vial) 20 mg IV BID@1000,1700 [facility] Last Admin: 08/13/20 08:14 Dose: 20 mg Documented by: Sodium Chloride () 250 mls @ 15 mls/hr IV .[id number] PRN PRN Reason: Saline Flush Sodium Chloride () 250 mls @ 15 mls/hr IV .[id number] PRN PRN Reason: Additional IVPB Infusion Levothyroxine Sodium (Levothyroxine 25 Mcg Tablet) 25 mcg PO DAILY [facility] Last Admin: 08/13/20 08:24 Dose: 25 mcg Documented by: Metoclopramide HCl (Metoclopramide 5 Mg Tablet) 5 mg PO BIDAC [facility] Last Admin: 08/13/20 08:24 Dose: 5 mg Documented by: Ondansetron HCl (Ondansetron 4 Mg/2 Ml Vial) 4 mg IV Q6H PRN PRN PRN Reason: NAUSEA/VOMITING Last Admin: 08/11/20 20:09 Dose: 4 mg Documented by: Sodium Chloride (0.9% Saline Lock 10 Ml Syringe) 10 - 40 ml IV UD PRN PRN Reason: SALINE FLUSH Last Admin: 08/13/20 08:22 Dose: 40 ml Documented by: Medical Necessity - Tobacco Use Smoking Status: Former smoker Tobacco Use: Cigarettes Route of nutrition/ use of supplements: [] Nutritional Intake: [] IV Site: [] Gr Catheter: [] - Assessment/Plan Antibiotics: [] Assessment/Plan: [] Active and Suspected Problems (Last Reviewed 07/16/20 @ 23:[address] Richard Gaona MD) COVID-19 (Acute) Hypoxia (Acute) Hypokalemia (Acute) Respiratory insufficiency (Acute) On dex, completed remdesivir. Got plasma 07/19. 07/30 felt worse with fever overnight, high O2 reqs. Started on empiric vanc/zosyn. Cxs neg, CT showed PE, and PCT was less than 0.2. Stopped vanc 08/01, stopped zosyn 08/02. Required intubation, empiric gisella started 08/04, paralyzed, pressor. O2 and PEEP much better. Off paralytics. Repeat sputum cx neg. CVC in since 08/05, consider changing to picc. Now off vent, on airvo, will stop meropenem today. Will follow
[2020-08-13 14:29] LABS: Pathologist Review Reviewed
--- NOTE | 2020-08-13 14:29 | CPS ---
patient had episode of sob, and desaturations. increased fio2 to 90% and liter flow to 60
--- NOTE | 2020-08-13 20:15 | NURSING ---
Explained to pt nrsg rounds q2hr, pt asked that if she thinks of any needs in between nrsg rounds that she please wait for the next visit. Pt able to restate information and agreed to careplan. Pt assisted w/drinking nectar thickened water and rosalba genaro, denies other needs at this time.
--- NOTE | 2020-08-13 22:05 | NURSING ---
Pt assisted w/mouthcare, sergey and cath care completed. Pt medicated for back pain and denied other needs.
[2020-08-14] VITALS (26 sets, daily range): BP systolic 98–139; BP diastolic 66–96; PULSE 59–785; RESP 12–24; TEMP 36.3–37.2; O2SAT 90–97
--- NOTE | 2020-08-14 00:18 | NURSING ---
Pt states appreciation and that knowing my nurse is actually coming back when she says helps me feel better. Pt noted to be resting comfortably w/eyes closed in between room visits. Pt denies discomfort and distress.
[2020-08-14] MEDS: HYDROcodone Bitartrate/Apap 5/325 Tablet PO ×5 (01:51→22:50)
[2020-08-14] MEDS: 0.9% Saline Lock 10 ML Syringe IV ×2 (05:13→08:19)
[2020-08-14] MEDS: Menthol/Lanolin/Calamine/Znox 113 GM Tube 1 APPLIC TOPICAL ×3 (05:13→20:25)
[2020-08-14 05:48] LABS: Absolute Lymphocyte Count 1.87 X10^3/uL (0.83-4.51); Basophil# 0.04 X10^3/uL; Basophil% 0.4 % (0-1); Eosinophil# 0.03 X10^3/uL; Eosinophils% 0.3 % (0-5); Hematocrit 38.3 % (37-47); Hemoglobin 12.4 g/dL (12.0-15.0); Lymphocyte # 1.87 X10^3/ul (4.0); Lymphocyte % 16.4 % (19-41); Mean Corp Hgb Conc 32.4 g/dL (32-36); Mean Corpuscular Hgb 29.2 pg (27.0-32.0); Mean Corpuscular Volume 90.3 fL (81-99); Mean Platelet Vol. 10.6 fl (6.2-12.0); Monocyte# 1.14 X10^3/uL; NRBC Flagged by Analyzer 0.6 % (0-5); Neutrophil # 7.97 X10^3/uL (2.7-7.7); Neutrophil % 69.7 % (47-70); POSITIVE COUNT YES; RBC Distribution Width CV 14.5 % (11.6-14.6); RBC Distribution Width SD 45.8 fl (35.1-43.9); Red Blood Count 4.24 M/mm3 (4.2-5.4); White Blood Count 11.4 K/mm3 (4.4-11.0)
[2020-08-14 05:55] LABS: Anion Gap 5 (5-15); BUN 36 mg/dL (7-18); BUN/Creat Ratio 45.7 RATIO (10-20); Calcium,Total 9.6 mg/dL (8.5-10.1); Chloride 100 mmol/L (98-107); Creatinine, Serum 0.79 mg/dL (0.55-1.02); EST Glomerular Filtration Rate 78 mL/min (>60); Est Glom Filt Rate - Afr Amer 94 mL/min (>60); Estimated Creatinine Clearance 61.31 ml/min; Glucose 89 mg/dL (74-106); Phosphorus 2.4 mg/dL (2.5-4.9); Potassium 3.4 mmol/L (3.5-5.1); Sodium Level 140 mmol/L (136-145)
[2020-08-14 05:58] LABS: Differential Comment SCANNED; Differential Indicated SCAN CRITERIA MET; Platelet Count 757 K/mm3 (150-450)
[2020-08-14 06:15] LABS: Platelet Estimate MKD INC (ADEQ)
--- NOTE | 2020-08-14 07:13 | PN_ITS ---
Subjective: Patient did well overnight. Oxygenation status had improved until patient had some physical activity this morning. This did lead to an increase in FiO2 to 65%, but this is improving. Patient denies any chest pain, abdominal pain, nausea or vomiting. Patient does report that she is thirsty. General: Alert, Oriented x3, Cooperative, No apparent distress, - - Mild conversational dyspnea. HEENT: Atraumatic, PERRLA, EOMI, Normocephalic, - - No scleral icterus or injection noted Oral: No Gingival or Mucosal Lesions/ Ulcerations, Dry Mucosa Neck: Supple, No JVD, No Nodes, No Nuchal Rigidity Lungs: No rhonchi, No wheeze, No rales, Diminished, - - Symmetric expansion Cardiovascular: Regular rate, Regular Rhythm, Normal S1, Normal S2, No murmurs, No rub noted, No Gallop Abdomen: Bowel Sounds Present, Soft, Non Tender, Non-Distended Extremities: No clubbing, No cyanosis, No edema Skin: - - No change compared to previous Musculoskeletal: No Tenderness to Palpation of Joints or Extremities Lymphatic: No Cervical, Supraclavicular, or Inguinal Adenopathy Neurological: Cranial nerves II-XII grossly intact, Neuro grossly intact, - - Still with some weakness of the upper extremities, but this appears to be improving Psych/Mental Status: Appropriate, Flat Affect Vital Signs Temp Pulse Resp BP Pulse Ox 37.0 C 74 21 H 130/80 H 95 08/14/20 06:00 08/14/20 06:00 08/14/20 06:00 08/14/20 06:00 08/14/20 06:00 Oxygen Flow Rate (L/min) 45 Oxygen Delivery Method Airvo Weight: 71.8 kg Body Mass Index (BMI) 28.9 Intake and Output for Last 24 Hours 08/12/20 08/13/20 08/14/20 23:59 23:59 23:59 Intake Total 1220.0 / 1220.0 726 / 826 260 / 260 Output Total 3370 / 3370 2275 / 2350 285 / 285 Balance -2150.0 / -2150.0 -1549 / -1524 -25 / -25 Labs (Last 48 Hours) 08/12/20 08/12/20 08/12/20 05:15 05:15 05:15 WBC 7.4 RBC 3.69 L Hgb 10.7 L Hct 34.5 L MCV 93.5 MCH 29.0 MCHC 31.0 L RDW Std Deviation 49.0 H RDW Coeff of Brittanie 14.6 Plt Count 609 H MPV 11.0 Immature Gran % (Auto) Neut % (Auto) Not Reportable Lymph % (Auto) [place] % (Auto) Eos % (Auto) Baso % (Auto) Absolute Neuts (auto) 4.8 Absolute Lymphs (auto) 1.32 Total Counted 100 Neutrophils % (Manual) 64 Band Neutrophils % 1 Lymphocytes % (Manual) 18 L Monocytes % (Manual) 12 H Metamyelocytes % 1 Myelocytes % 4 H Nucleated RBC % Differential Comment Diff Path Review Reviewed Toxic Granulation RARE Platelet Estimate MOD INC Polychromasia RARE Hypochromasia 1+ Specimen Type pH Bicarbonate Actual Total CO2 Base Excess O2 Saturation O2 % ABG pCO2 ABG pO2 Vent Mode POC PEEP POC Pressure Suppt Sodium 146 H Potassium 4.0 Chloride 110 H Carbon Dioxide 34.0 H Anion Gap 2 L BUN 36 H Creatinine 0.75 Estim Creat Clear Calc 64.58 Est GFR (MDRD) Af Amer 100 Est GFR (MDRD) Non-Af 83 BUN/Creatinine Ratio 48.2 H Glucose 132 H Calcium 9.4 Phosphorus Magnesium Total Bilirubin 0.30 AST 81 H ALT 162 H Alkaline Phosphatase 87 Total Creatine Kinase 22 L Total Protein 6.3 L Albumin 2.0 L Globulin 4.3 H Albumin/Globulin Ratio 0.5 L Triglycerides 126 08/12/20 08/13/20 08/13/20 09:29 04:00 04:00 WBC 8.9 RBC 3.62 L Hgb 10.6 L Hct 33.4 L MCV 92.3 MCH 29.3 MCHC 31.7 L RDW Std Deviation 47.9 H RDW Coeff of Brittanie 14.3 Plt Count 614 H MPV 10.8 Immature Gran % (Auto) 4.700 H Neut % (Auto) 69.4 Lymph % (Auto) 13.1 L [place] % (Auto) 12.5 H Eos % (Auto) 0.1 Baso % (Auto) 0.2 Absolute Neuts (auto) 6.1 Absolute Lymphs (auto) 1.16 Total Counted Neutrophils % (Manual) Band Neutrophils % Lymphocytes % (Manual) Monocytes % (Manual) Metamyelocytes % Myelocytes % Nucleated RBC % 0.8 Differential Comment Diff Path Review Toxic Granulation Platelet Estimate Polychromasia Hypochromasia Specimen Type ART pH 7.47 H Bicarbonate Actual 33.5 H Total CO2 35 Base Excess 10 H O2 Saturation 92 L O2 % 45 ABG pCO2 45.9 H ABG pO2 60 L Vent Mode CPAP/PS POC PEEP 5 POC Pressure Suppt 5 Sodium 143 Potassium 3.3 L Chloride 102 Carbon Dioxide 37.0 H Anion Gap 4 L BUN 36 H Creatinine 0.69 Estim Creat Clear Calc 70.19 Est GFR (MDRD) Af Amer 109 Est GFR (MDRD) Non-Af 90 BUN/Creatinine Ratio 51.9 H Glucose 101 Calcium 9.1 Phosphorus Magnesium Total Bilirubin 0.30 AST 119 H ALT 248 H Alkaline Phosphatase 82 Total Creatine Kinase Total Protein 6.1 L Albumin 2.0 L Globulin 4.1 Albumin/Globulin Ratio 0.5 L Triglycerides 08/14/20 08/14/20 05:00 05:00 WBC 11.4 H RBC 4.24 Hgb 12.4 Hct 38.3 MCV 90.3 MCH 29.2 MCHC 32.4 RDW Std Deviation 45.8 H RDW Coeff of Brittanie 14.5 Plt Count 757 H* MPV 10.6 Immature Gran % (Auto) 3.200 H Neut % (Auto) 69.7 Lymph % (Auto) 16.4 L [place] % (Auto) 10.0 Eos % (Auto) 0.3 Baso % (Auto) 0.4 Absolute Neuts (auto) 8.0 H Absolute Lymphs (auto) 1.87 Total Counted Neutrophils % (Manual) Band Neutrophils % Lymphocytes % (Manual) Monocytes % (Manual) Metamyelocytes % Myelocytes % Nucleated RBC % 0.6 Differential Comment SCANNED Diff Path Review May foll Toxic Granulation Platelet Estimate MKD INC Polychromasia Hypochromasia Specimen Type pH Bicarbonate Actual Total CO2 Base Excess O2 Saturation O2 % ABG pCO2 ABG pO2 Vent Mode POC PEEP POC Pressure Suppt Sodium 140 Potassium 3.4 L Chloride 100 Carbon Dioxide 35.0 H Anion Gap 5 BUN 36 H Creatinine 0.79 Estim Creat Clear Calc 61.31 Est GFR (MDRD) Af Amer 94 Est GFR (MDRD) Non-Af 78 BUN/Creatinine Ratio 45.7 H Glucose 89 Calcium 9.6 Phosphorus 2.4 L Magnesium 2.0 Total Bilirubin AST ALT Alkaline Phosphatase Total Creatine Kinase Total Protein Albumin Globulin Albumin/Globulin Ratio Triglycerides Microbiology 08/12/20 17:30 Stool C. difficile DNA Amplification - Final 08/10/20 12:30 Sputum, Induced/Lukens Gram Stain - Final 08/10/20 12:30 Sputum, Induced/Lukens Respiratory Culture - Final Presumptive C albicans Medical Necessity - Tobacco Use Smoking Status: Former smoker Tobacco Use: Cigarettes Assessment/Plan All Active Problems (Last Reviewed 07/16/20 @ 23:[address] Richard Gaona MD) COVID-19 (Acute) Hypoxia (Acute) Hypokalemia (Acute) Respiratory insufficiency (Acute) RECOMMENDATIONS: 1. Attempt nasal cannula oxygen later today 2. Wean oxygen as tolerated 3. Continue diuretics as renal function allows 4. Completed meropenem and Decadron dosing 5. Continue Eliquis for anticoagulation 6. Increase activity as tolerated 7. Possible transfer out of the intensive care unit IMPRESSIONS: 1. Acute hypoxemic respiratory failure secondary to COVID-19 pneumonia/pulmonary emboli Patient has significantly improved from a respiratory standpoint. The patient has already completed a treatment course of remdesivir and Decadron. She also received convalescent plasma. CTA chest obtained during this hospitalization did reveal small upper lobe pulmonary emboli. Patient currently on Airvo and tolerating well. Will attempt nasal cannula oxygen later today. Continue with aggressive pulmonary toileting. Completed second course of antibiotics and appears to be tolerating well. Continue to be aggressive with activity. Possible LTAC versus ECF placement at discharge pending oxygen status 2. Distributive shock Resolved. The patient did develop hemodynamic instability as a consequence of sedative medication use, requiring vasopressor initiation initially. Continue to monitor blood pressure closely. 3. Acute kidney injury Resolved. Suspect likely secondary to ischemic ATN in the setting of #1, 2 and possible postobstructive pathology given clogged Gr. Plan to continue current supportive measures, including vasopressor support to maintain hemodynamic stability. Continue to monitor urine output. No current indication for renal replacement therapy. Continue diuretic challenges as patient tolerates. 4. Advanced age/anxiety/hypothyroidism/hypertension/GERD/metabolic encephalopathy Complicates care, management, recovery and prognosis. Continue current supportive measures. Continue delirium measures. Patient may improve after discontinuation of Decadron. Continue to treat chronic back pain Inpatient E&M: [id number] [place] [id number]
[2020-08-14] MEDS: Famotidine 20 MG Tablet PO ×2 (08:18→20:24)
[2020-08-14] MEDS: Metoclopramide 5 MG TABLET PO ×2 (08:18→16:38)
[2020-08-14] MEDS: Levothyroxine 25 MCG TABLET PO (08:18)
[2020-08-14] MEDS: APIXABAN 5 MG TABLET PO ×2 (08:18→20:24)
[2020-08-14] MEDS: Furosemide 20 MG/2 ML VIAL IV ×2 (08:24→16:38)
--- NOTE | 2020-08-14 11:13 | PCM.PN.HOSP ---
Patient Problems: Active and Suspected Problems (Last Reviewed 07/16/20 @ 23:[address] Richard Gaona MD) COVID-19 (Acute) Hypoxia (Acute) Hypokalemia (Acute) Respiratory insufficiency (Acute) Reason for Visit: COVID Subjective: Breathing well. Vitals/I&O's: Vital Signs Temp Pulse Resp BP Pulse Ox 36.7 C 85 24 H 125/76 H 90 08/14/20 08:00 08/14/20 08:00 08/14/20 08:00 08/14/20 08:00 08/14/20 08:00 Oxygen Flow Rate (L/min) 45 Oxygen Delivery Method Airvo Weight: 71.8 kg Body Mass Index (BMI) 28.9 Intake and Output for Last 24 Hours 08/12/20 08/13/20 08/14/20 23:59 23:59 23:59 Intake Total 1220.0 / 1220.0 726 / 826 260 / 260 Output Total 3370 / 3370 2275 / 2350 285 / 285 Balance -2150.0 / -2150.0 -1549 / -1524 -25 / -25 General: - - Just moved to chair from bed while on Airvo, sats have ranged from HEENT: Atraumatic, Normocephalic Oral: Moist Mucosa, No Gingival or Mucosal Lesions/ Ulcerations Neck: No Nodes, Thyroid Normal Size and Texture Lungs: Clear to auscultation, Normal air movement, No rhonchi, No wheeze Cardiovascular: Regular rate, Regular Rhythm, Normal S1, Normal S2, No murmurs Abdomen: Bowel Sounds Present, Soft, Non Tender, Non-Distended, No Hepato-splenomegaly Extremities: No edema, No Calf Tenderness Microbiology Past 72 Hours 08/12/20 17:30 Stool C. difficile DNA Amplification - Final 08/10/20 12:30 Sputum, Induced/Lukens Gram Stain - Final 08/10/20 12:30 Sputum, Induced/Lukens Respiratory Culture - Final Presumptive C albicans Laboratory Results 08/12/20 05:15: Diff Path Review Reviewed 08/14/20 05:00: WBC 11.4 H, RBC 4.24, Hgb 12.4, Hct 38.3, MCV 90.3, MCH 29.2, MCHC 32.4, RDW Std Deviation 45.8 H, RDW Coeff of Brittanie 14.5, Plt Count 757 H*, MPV 10.6, Immature Gran % (Auto) 3.200 H, Neut % (Auto) 69.7, Lymph % (Auto) 16.4 L, Ward % (Auto) 10.0, Eos % (Auto) 0.3, Baso % (Auto) 0.4, Absolute Neuts (auto) 8.0 H, Absolute Lymphs (auto) 1.87, Nucleated RBC % 0.6, Differential Comment SCANNED, Diff Path Review January anastasia, Platelet Estimate MKD INC 08/14/20 05:00: Sodium 140, Potassium 3.4 L, Chloride 100, Carbon Dioxide 35.0 H, Anion Gap 5, BUN 36 H, Creatinine 0.79, Estim Creat Clear Calc 61.31, Est GFR (MDRD) Af Amer 94, Est GFR (MDRD) Non-Af 78, BUN/Creatinine Ratio 45.7 H, Glucose 89, Calcium 9.6, Phosphorus 2.4 L, Magnesium 2.0 Current Medications Acetaminophen (Acetaminophen 325 Mg Tablet) 650 mg PO Q6H PRN PRN PRN Reason: Pain Score 1-10/Temp > 100.7 F Hydrocodone Bitart/Acetaminophen (Hydrocodone Bitartrate/Apap 5/325 Tablet) 1 tablet PO Q4H PRN PRN PRN Reason: Pain Score 6-10 Last Admin: 08/14/20 10:23 Dose: 1 tablet Documented by: Albuterol Sulfate (Albuterol 2.5 Mg/3 Ml Vial.Neb.) 2.5 mg INHALATION Q2H PRN PRN PRN Reason: Dyspnea, wheezing Apixaban (Apixaban 5 Mg Tablet) 5 mg PO BID [facility] Last Admin: 08/14/20 08:18 Dose: 5 mg Documented by: Calamine/Phenol (Menthol/Lanolin/Calamine/Znox 113 Gm Tube) 1 applic TOPICAL TID [facility]; Protocol Last Admin: 08/14/20 05:13 Dose: 1 applicatio Documented by: Famotidine (Famotidine 20 Mg Tablet) 20 mg PO BID [facility] Last Admin: 08/14/20 08:18 Dose: 20 mg Documented by: Furosemide (Furosemide 20 Mg/2 Ml Vial) 20 mg IV BID@1000,1700 [facility] Last Admin: 08/14/20 08:24 Dose: 20 mg Documented by: Sodium Chloride () 250 mls @ 15 mls/hr IV .[id number] PRN PRN Reason: Saline Flush Last Admin: 08/13/20 18:17 Dose: 15 mls/hr Documented by: Sodium Chloride () 250 mls @ 15 mls/hr IV .[id number] PRN PRN Reason: Additional IVPB Infusion Levothyroxine Sodium (Levothyroxine 25 Mcg Tablet) 25 mcg PO DAILY [facility] Last Admin: 08/14/20 08:18 Dose: 25 mcg Documented by: Metoclopramide HCl (Metoclopramide 5 Mg Tablet) 5 mg PO BIDAC [facility] Last Admin: 08/14/20 08:18 Dose: 5 mg Documented by: Ondansetron HCl (Ondansetron 4 Mg/2 Ml Vial) 4 mg IV Q6H PRN PRN PRN Reason: NAUSEA/VOMITING Last Admin: 08/11/20 20:09 Dose: 4 mg Documented by: Sodium Chloride (0.9% Saline Lock 10 Ml Syringe) 10 - 40 ml IV UD PRN PRN Reason: SALINE FLUSH Last Admin: 08/14/20 08:19 Dose: 10 ml Documented by: STROKE Vital Signs/Narrative: Vital Signs Temp Pulse Resp BP Pulse Ox 08/14/20 08:00 36.7 C 85 24 H 125/76 H 90 08/14/20 07:19 82 22 H 92 Medical Necessity - Tobacco Use Smoking Status: Former smoker Tobacco Use: Cigarettes Assessment/Plan All Active Problems (Last Reviewed 07/16/20 @ 23:[address] Richard Gaona MD) COVID-19 (Acute) Hypoxia (Acute) Hypokalemia (Acute) Respiratory insufficiency (Acute) 1. COVID 19 Positive on 07/14/2020 Completed dexamethasone x 2, remdesivir, and convalescent plasma ID following, defer to ID about discontinuation of isolation 2. Acute hypoxic respiratory failure improving tolerating Airvo Extubated 08/12 2/2 COVID, PE, ALI, PNA on Meropenem CCM following 3. JARRETT resolved 2/2 obstructed catheter 4. Septic shock resolved 2/2 COVID-19 and pneumonia off pressors 5. PE apixaban, treat for 6 months 6. Prognosis: guarded DNRCCA anticipate continue prolonged recovery, though may not have much physiologic reserve to endure another significant medical insult. May need LTAC 7. Dysphagia continue modified diet speech therapy Notified by nursing of recommendations of [facility] physician that patient could be transferred to [facility], however, I will hold off doing so at this time given hypoxia. This certainly this may be related to patient just being moved to a chair and this little bit of exertion with her underlying lung disease may have prolonged recovery. Will continue ICU level of care for now until patient continues to demonstrate stability with pulse ox. Inpatient E&M: [id number] Subs Hosp L2
[2020-08-15] VITALS (7 sets, daily range): BP systolic 111–134; BP diastolic 70–78; PULSE 76–85; RESP 18; TEMP 36.5–36.8; O2SAT 91–97
[2020-08-15] MEDS: HYDROcodone Bitartrate/Apap 5/325 Tablet PO ×4 (03:35→23:31)
[2020-08-15 07:08] LABS: Absolute Lymphocyte Count 1.69 X10^3/uL (0.83-4.51); Absolute Neutrophil Count 5.4 X10^3/uL (2.0-7.7); Basophil# 0.03 X10^3/uL; Basophil% 0.4 % (0-1); Eosinophil# 0.19 X10^3/uL; Eosinophils% 2.2 % (0-5); Hematocrit 37.3 % (37-47); Hemoglobin 11.7 g/dL (12.0-15.0); Lymphocyte # 1.69 X10^3/ul (4.0); Lymphocyte % 19.8 % (19-41); Mean Corp Hgb Conc 31.4 g/dL (32-36); Mean Corpuscular Hgb 28.5 pg (27.0-32.0); Mean Platelet Vol. 10.5 fl (6.2-12.0); Monocyte# 0.94 X10^3/uL; NRBC Flagged by Analyzer 0 % (0-5); Neutrophil # 5.39 X10^3/uL (2.7-7.7); Neutrophil % 63.2 % (47-70); Platelet Count 594 K/mm3 (150-450); RBC Distribution Width CV 14.6 % (11.6-14.6); White Blood Count 8.5 K/mm3 (4.4-11.0)
[2020-08-15 07:25] LABS: Anion Gap 7 (5-15); BUN 28 mg/dL (7-18); BUN/Creat Ratio 33.7 RATIO (10-20); Calcium,Total 9.1 mg/dL (8.5-10.1); Chloride 102 mmol/L (98-107); Creatinine, Serum 0.83 mg/dL (0.55-1.02); EST Glomerular Filtration Rate 73 mL/min (>60); Est Glom Filt Rate - Afr Amer 88 mL/min (>60); Estimated Creatinine Clearance 58.35 ml/min; Glucose 97 mg/dL (74-106); Magnesium 1.8 mg/dL (1.6-2.6); Phosphorus 2.7 mg/dL (2.5-4.9); Potassium 2.9 mmol/L (3.5-5.1); Sodium Level 139 mmol/L (136-145)
--- NOTE | 2020-08-15 09:24 | PCM.PN.HOSP ---
Patient Problems: Active and Suspected Problems (Last Reviewed 07/16/20 @ 23:[address] Richard Gaona MD) COVID-19 (Acute) Hypoxia (Acute) Hypokalemia (Acute) Respiratory insufficiency (Acute) Reason for Visit: COVID-19 Subjective: Feeling great. Had some low pulse ox last night while she was sleeping. Weaned down to high-flow oxygen. Vitals/I&O's: Vital Signs Temp Pulse Resp BP Pulse Ox 36.8 C 76 18 127/77 H 95 08/15/20 06:07 08/15/20 06:07 08/15/20 06:07 08/15/20 06:07 08/15/20 07:40 Oxygen Flow Rate (L/min) 12 Oxygen Delivery Method Nasal Cannula Weight: 71.9 kg Body Mass Index (BMI) 28.9 Intake and Output for Last 24 Hours 08/13/20 08/14/20 08/15/20 23:59 23:59 23:59 Intake Total 726 / 826 1620 / 1860 600 / 600 Output Total 2275 / 2350 735 / 1035 700 / 700 Balance -1549 / -1524 885 / 825 -100 / -100 General: Alert, No apparent distress HEENT: Atraumatic, Normocephalic Oral: Moist Mucosa, No Gingival or Mucosal Lesions/ Ulcerations Neck: No Nodes, Thyroid Normal Size and Texture Lungs: Normal air movement, - - bibasilar crackles. Cardiovascular: Regular rate, Regular Rhythm, Normal S1, Normal S2, No murmurs Abdomen: Bowel Sounds Present, Soft, Non Tender, Non-Distended, No Hepato-splenomegaly Extremities: No edema, No Calf Tenderness Skin: No rashes, No breakdown Psych/Mental Status: Normal Affect, Appropriate Microbiology Past 72 Hours 08/12/20 17:30 Stool C. difficile DNA Amplification - Final 08/10/20 12:30 Sputum, Induced/Lukens Gram Stain - Final 08/10/20 12:30 Sputum, Induced/Lukens Respiratory Culture - Final Presumptive C albicans Laboratory Results 08/15/20 06:24: WBC 8.5, RBC 4.10 L, Hgb 11.7 L, Hct 37.3, MCV 91.0, MCH 28.5, MCHC 31.4 L, RDW Std Deviation 47.0 H, RDW Coeff of Brittanie 14.6, Plt Count 594 H, MPV 10.5, Immature Gran % (Auto) 3.400 H, Neut % (Auto) 63.2, Lymph % (Auto) 19.8, Garza % (Auto) 11.0 H, Eos % (Auto) 2.2, Baso % (Auto) 0.4, Absolute Neuts (auto) 5.4, Absolute Lymphs (auto) 1.69, Nucleated RBC % 0 08/15/20 06:24: Sodium 139, Potassium 2.9 L, Chloride 102, Carbon Dioxide 30.0, Anion Gap 7, BUN 28 H, Creatinine 0.83, Estim Creat Clear Calc 58.35, Est GFR (MDRD) Af Amer 88, Est GFR (MDRD) Non-Af 73, BUN/Creatinine Ratio 33.7 H, Glucose 97, Calcium 9.1, Phosphorus 2.7, Magnesium 1.8 Current Medications Acetaminophen (Acetaminophen 325 Mg Tablet) 650 mg PO Q6H PRN PRN PRN Reason: Pain Score 1-10/Temp > 100.7 F Hydrocodone Bitart/Acetaminophen (Hydrocodone Bitartrate/Apap 5/325 Tablet) 1 tablet PO Q4H PRN PRN PRN Reason: Pain Score 6-10 Last Admin: 08/15/20 03:35 Dose: 1 tablet Documented by: Albuterol Sulfate (Albuterol 2.5 Mg/3 Ml Vial.Neb.) 2.5 mg INHALATION Q2H PRN PRN PRN Reason: Dyspnea, wheezing Apixaban (Apixaban 5 Mg Tablet) 5 mg PO BID [facility] Last Admin: 08/14/20 20:24 Dose: 5 mg Documented by: Calamine/Phenol (Menthol/Lanolin/Calamine/Znox 113 Gm Tube) 1 applic TOPICAL TID@1000,1700,2200 [facility]; Protocol Famotidine (Famotidine 20 Mg Tablet) 20 mg PO BID [facility] Last Admin: 08/14/20 20:24 Dose: 20 mg Documented by: Furosemide (Furosemide 20 Mg/2 Ml Vial) 20 mg IV BID@1000,1700 [facility] Last Admin: 08/14/20 16:38 Dose: 20 mg Documented by: Sodium Chloride () 250 mls @ 15 mls/hr IV .[id number] PRN PRN Reason: Saline Flush Last Infusion: 08/14/20 19:20 Dose: Infused Documented by: Sodium Chloride () 250 mls @ 15 mls/hr IV .[id number] PRN PRN Reason: Additional IVPB Infusion Levothyroxine Sodium (Levothyroxine 25 Mcg Tablet) 25 mcg PO DAILY [facility] Last Admin: 08/14/20 08:18 Dose: 25 mcg Documented by: Metoclopramide HCl (Metoclopramide 5 Mg Tablet) 5 mg PO BIDAC [facility] Last Admin: 08/14/20 16:38 Dose: 5 mg Documented by: Ondansetron HCl (Ondansetron 4 Mg/2 Ml Vial) 4 mg IV Q6H PRN PRN PRN Reason: NAUSEA/VOMITING Last Admin: 08/11/20 20:09 Dose: 4 mg Documented by: Sodium Chloride (0.9% Saline Lock 10 Ml Syringe) 10 - 40 ml IV UD PRN PRN Reason: SALINE FLUSH Last Admin: 08/14/20 08:19 Dose: 10 ml Documented by: STROKE Vital Signs/Narrative: Vital Signs Temp Pulse Resp BP Pulse Ox 08/15/20 07:40 95 08/15/20 06:07 36.8 C 76 18 127/77 H 97 Medical Necessity - Tobacco Use Smoking Status: Former smoker Tobacco Use: Cigarettes Assessment/Plan All Active Problems (Last Reviewed 07/16/20 @ 23:[address] Richard Gaona MD) COVID-19 (Acute) Hypoxia (Acute) Hypokalemia (Acute) Respiratory insufficiency (Acute) 1. COVID 19 Positive on 07/14/2020 Completed dexamethasone x 2, remdesivir, and convalescent plasma ID following, defer to ID about timing to discontinue isolation 2. Acute hypoxic respiratory failure improving tolerating high-flow oxygen Extubated 08/12 2/2 COVID, PE, ALI, PNA completed Meropenem CCM following SCx w C albicans likely contaminant. 3. JARRETT resolved 2/2 obstructed catheter 4. Septic shock resolved 2/2 COVID-19 and pneumonia off pressors 5. PE apixaban, treat for 6 months 6. Prognosis: guarded, though improving. DNRCCA anticipate continue prolonged recovery, though may not have much physiologic reserve to endure another significant medical insult. May need LTAC 7. Dysphagia continue modified diet speech therapy 8. Disposition: Pending. LTAC v SNF. Case mgmt to follow up on 08/16. Inpatient E&M: [id number] Subs Hosp L2
[2020-08-15] MEDS: Menthol/Lanolin/Calamine/Znox 113 GM Tube 1 APPLIC TOPICAL ×3 (10:16→19:53)
[2020-08-15] MEDS: APIXABAN 5 MG TABLET PO ×2 (10:17→19:54)
[2020-08-15] MEDS: Levothyroxine 25 MCG TABLET PO (10:17)
[2020-08-15] MEDS: Metoclopramide 5 MG TABLET PO ×2 (10:17→16:05)
[2020-08-15] MEDS: Furosemide 20 MG/2 ML VIAL IV ×2 (10:17→17:54)
[2020-08-15] MEDS: Famotidine 20 MG Tablet PO ×2 (10:17→19:54)
[2020-08-15] MEDS: 0.9% Saline Lock 10 ML Syringe IV ×5 (10:31→19:56)
--- NOTE | 2020-08-15 11:26 | PCM.PN.PUL ---
Patient Problems: Active and Suspected Problems (Last Reviewed 07/16/20 @ 23:[address] Richard Gaona MD) COVID-19 (Acute) Hypoxia (Acute) Hypokalemia (Acute) Respiratory insufficiency (Acute) Subjective: Patient did well overnight. Patient reports she feels stronger compared to yesterday. Patient is reporting irritation that she attributes to the Gr. Patient reports she has had significant weakness with getting out of bed. - Physical Exam Vitals/I&O's: Vital Signs Temp Pulse Resp BP Pulse Ox 36.6 C 84 18 134/78 H 96 08/15/20 10:00 08/15/20 10:00 08/15/20 10:00 08/15/20 10:00 08/15/20 10:00 Oxygen Flow Rate (L/min) 12 Oxygen Delivery Method Nasal Cannula Weight: 71.9 kg Body Mass Index (BMI) 28.9 Intake and Output for Last 24 Hours 08/13/20 08/14/20 08/15/20 23:59 23:59 23:59 Intake Total 726 / 826 1620 / 1860 600 / 600 Output Total 2275 / 2350 735 / 1035 700 / 700 Balance -1549 / -1524 885 / 825 -100 / -100 General: Alert, Oriented x3, Cooperative, No apparent distress, - - Much more interactive today HEENT: Atraumatic, PERRLA, EOMI, Normocephalic, - - Scleral injection without icterus Oral: Moist Mucosa, No Gingival or Mucosal Lesions/ Ulcerations Neck: Supple, No JVD, No Nodes, Trachea Midline Lungs: No rhonchi, No wheeze, No rales, Diminished Cardiovascular: Regular rate, Regular Rhythm, Normal S1, Normal S2, No murmurs, No rub noted, No Gallop Abdomen: Bowel Sounds Present, Soft, Non Tender, Non-Distended Extremities: No clubbing, No cyanosis, Edema Skin: - - No change from previous Musculoskeletal: No Tenderness to Palpation of Joints or Extremities Lymphatic: No Cervical, Supraclavicular, or Inguinal Adenopathy Neurological: Cranial nerves II-XII grossly intact, Neuro grossly intact, Motor Exam 5/5 strength throughout Psych/Mental Status: Alert and oriented to time, place, person, mood and affect Microbiology Past 72 Hours 08/12/20 17:30 Stool C. difficile DNA Amplification - Final 08/10/20 12:30 Sputum, Induced/[place]ukens Gram Stain - Final 08/10/20 12:30 Sputum, Induced/[place]ens Respiratory Culture - Final Presumptive C albicans Laboratory Results 08/15/20 06:24: WBC 8.5, RBC 4.10 L, Hgb 11.7 L, Hct 37.3, MCV 91.0, MCH 28.5, MCHC 31.4 L, RDW Std Deviation 47.0 H, RDW Coeff of Brittanie 14.6, Plt Count 594 H, MPV 10.5, Immature Gran % (Auto) 3.400 H, Neut % (Auto) 63.2, Lymph % (Auto) 19.8, [place] % (Auto) 11.0 H, Eos % (Auto) 2.2, Baso % (Auto) 0.4, Absolute Neuts (auto) 5.4, Absolute Lymphs (auto) 1.69, Nucleated RBC % 0 08/15/20 06:24: Sodium 139, Potassium 2.9 L, Chloride 102, Carbon Dioxide 30.0, Anion Gap 7, BUN 28 H, Creatinine 0.83, Estim Creat Clear Calc 58.35, Est GFR (MDRD) Af Amer 88, Est GFR (MDRD) Non-Af 73, BUN/Creatinine Ratio 33.7 H, Glucose 97, Calcium 9.1, Phosphorus 2.7, Magnesium 1.8 Current Medications Acetaminophen (Acetaminophen 325 Mg Tablet) 650 mg PO Q6H PRN PRN PRN Reason: Pain Score 1-10/Temp > 100.7 F Hydrocodone Bitart/Acetaminophen (Hydrocodone Bitartrate/Apap 5/325 Tablet) 1 tablet PO Q4H PRN PRN PRN Reason: Pain Score 6-10 Last Admin: 08/15/20 10:15 Dose: 1 tablet Documented by: Albuterol Sulfate (Albuterol 2.5 Mg/3 Ml Vial.Neb.) 2.5 mg INHALATION Q2H PRN PRN PRN Reason: Dyspnea, wheezing Apixaban (Apixaban 5 Mg Tablet) 5 mg PO BID [facility] Last Admin: 08/15/20 10:17 Dose: 5 mg Documented by: Calamine/Phenol (Menthol/Lanolin/Calamine/Znox 113 Gm Tube) 1 applic TOPICAL TID@1000,1700,2200 [facility]; Protocol Last Admin: 08/15/20 10:16 Dose: 1 applicatio Documented by: Famotidine (Famotidine 20 Mg Tablet) 20 mg PO BID [facility] Last Admin: 08/15/20 10:17 Dose: 20 mg Documented by: Furosemide (Furosemide 20 Mg/2 Ml Vial) 20 mg IV BID@1000,1700 [facility] Last Admin: 08/15/20 10:17 Dose: 20 mg Documented by: Sodium Chloride () 250 mls @ 15 mls/hr IV .[id number] PRN PRN Reason: Saline Flush Last Infusion: 08/14/20 19:20 Dose: Infused Documented by: Sodium Chloride () 250 mls @ 15 mls/hr IV .[id number] PRN PRN Reason: Additional IVPB Infusion Potassium Chloride 40 meq/ (Sodium Chloride) 120 mls @ 100 mls/hr IV BOLUS X1 ONE Stop: 08/15/20 11:41 Last Admin: 08/15/20 10:49 Dose: 100 mls/hr Documented by: Magnesium Sulfate 2 gm/ Sodium (Chloride) 104 mls @ 52 mls/hr IV X1 ONE Stop: 08/15/20 12:29 Last Admin: 08/15/20 10:33 Dose: 52 mls/hr Documented by: Potassium Chloride 40 meq/ (Sodium Chloride) 120 mls @ 100 mls/hr IV BOLUS X1 ONE Stop: 08/15/20 19:11 Levothyroxine Sodium (Levothyroxine 25 Mcg Tablet) 25 mcg PO DAILY [facility] Last Admin: 08/15/20 10:17 Dose: 25 mcg Documented by: Metoclopramide HCl (Metoclopramide 5 Mg Tablet) 5 mg PO BIDAC [facility] Last Admin: 08/15/20 10:17 Dose: 5 mg Documented by: Ondansetron HCl (Ondansetron 4 Mg/2 Ml Vial) 4 mg IV Q6H PRN PRN PRN Reason: NAUSEA/VOMITING Last Admin: 08/11/20 20:09 Dose: 4 mg Documented by: Sodium Chloride (0.9% Saline Lock 10 Ml Syringe) 10 - 40 ml IV UD PRN PRN Reason: SALINE FLUSH Last Admin: 08/15/20 10:51 Dose: 10 ml Documented by: Sodium Chloride (Sodium Chloride 0.65% 1 [place].Btl) 1 spray NASAL 4X/DAY PRN PRN PRN Reason: NASAL DRYNESS Medical Necessity - Tobacco Use Smoking Status: Former smoker Tobacco Use: Cigarettes Assessment/Plan All Active Problems (Last Reviewed 07/16/20 @ 23:[address] Richard Gaona MD) COVID-19 (Acute) Hypoxia (Acute) Hypokalemia (Acute) Respiratory insufficiency (Acute) RECOMMENDATIONS: 1. Advance diet per speech recommendations 2. Nasal cannula oxygen as needed. Add nasal saline. Wean oxygen as tolerated 3. Continue diuretics as renal function allows 4. Completed meropenem and Decadron dosing 5. Continue Eliquis for anticoagulation 6. Increase activity as tolerated IMPRESSIONS: 1. Acute hypoxemic respiratory failure secondary to COVID-19 pneumonia/pulmonary emboli Patient has significantly improved from a respiratory standpoint. The patient has already completed a treatment course of remdesivir and Decadron. She also received convalescent plasma. CTA chest obtained during this hospitalization did reveal small upper lobe pulmonary emboli. Patient currently on Airvo and tolerating well. Will attempt nasal cannula oxygen later today. Continue with aggressive pulmonary toileting. Completed second course of antibiotics and appears to be tolerating well. Continue to be aggressive with activity. Possible LTAC versus ECF placement at discharge pending oxygen status. Patient much more appropriate today and appears to be gaining in strength. Defer diet consistency to speech therapy. Okay to use nasal saline to help with nasal irritation 2. Distributive shock Resolved. The patient did develop hemodynamic instability as a consequence of sedative medication use, requiring vasopressor initiation initially. Continue to monitor blood pressure closely. 3. Acute kidney injury Resolved. Suspect likely secondary to ischemic ATN in the setting of #1, 2 and possible postobstructive pathology given clogged Gr. Plan to continue current supportive measures, including vasopressor support to maintain hemodynamic stability. Continue to monitor urine output. No current indication for renal replacement therapy. Continue diuretic challenges as patient tolerates. 4. Advanced age/anxiety/hypothyroidism/hypertension/GERD/metabolic encephalopathy Complicates care, management, recovery and prognosis. Continue current supportive measures. Continue delirium measures. Patient may improve after discontinuation of Decadron. Continue to treat chronic back pain Inpatient E&M: [id number] [facility] Hosp L3
[2020-08-15] MEDS: Sodium Chloride 0.65% 1 SPRAY SPRAY.BTL NASAL ×2 (12:47→17:53)
[2020-08-16 01:05] VITALS: BP 111/66; PULSE 77; RESP 18; TEMP 36.9; O2SAT 95
[2020-08-16 05:36] LABS: Absolute Lymphocyte Count 1.29 X10^3/uL (0.83-4.51); Absolute Neutrophil Count 5.2 X10^3/uL (2.0-7.7); Basophil# 0.03 X10^3/uL; Basophil% 0.4 % (0-1); Eosinophil# 0.17 X10^3/uL; Eosinophils% 2.2 % (0-5); Hematocrit 36.9 % (37-47); Hemoglobin 11.7 g/dL (12.0-15.0); Lymphocyte # 1.29 X10^3/ul (4.0); Lymphocyte % 16.5 % (19-41); Mean Corp Hgb Conc 31.7 g/dL (32-36); Mean Corpuscular Hgb 28.5 pg (27.0-32.0); Mean Corpuscular Volume 89.8 fL (81-99); Mean Platelet Vol. 10.4 fl (6.2-12.0); Monocyte# 0.89 X10^3/uL; Monocyte% 11.4 % (0-10); NRBC Flagged by Analyzer 0 % (0-5); Neutrophil # 5.18 X10^3/uL (2.7-7.7); Neutrophil % 66.4 % (47-70); Platelet Count 546 K/mm3 (150-450); RBC Distribution Width CV 14.7 % (11.6-14.6); RBC Distribution Width SD 47.6 fl (35.1-43.9); Red Blood Count 4.11 M/mm3 (4.2-5.4); White Blood Count 7.8 K/mm3 (4.4-11.0)
[2020-08-16 06:00] LABS: ALB/GLOB Ratio 0.7 RATIO (0.9-2.4); AST(SGOT) 44 U/L (15-37); Alanine Aminotransfer ALT/SGPT 227 U/L (13-56); Albumin, Serum 2.3 g/dL (3.2-5.0); Alkaline Phosphatase 96 U/L (45-117); Anion Gap 6 (5-15); BUN 22 mg/dL (7-18); BUN/Creat Ratio 30.9 RATIO (10-20); Calcium,Total 8.8 mg/dL (8.5-10.1); Chloride 104 mmol/L (98-107); Creatinine, Serum 0.71 mg/dL (0.55-1.02); EST Glomerular Filtration Rate 87 mL/min (>60); Est Glom Filt Rate - Afr Amer 106 mL/min (>60); Estimated Creatinine Clearance 68.21 ml/min; Globulin 3.1 g/dL (2.2-4.2); Glucose 96 mg/dL (74-106); Magnesium 2.1 mg/dL (1.6-2.6); Potassium 4.1 mmol/L (3.5-5.1); Protein, Total 5.4 g/dL (6.4-8.2); Sodium Level 137 mmol/L (136-145)
--- NOTE | 2020-08-16 07:35 | PN_ITS ---
Patient Problems: Active and Suspected Problems (Last Reviewed 07/16/20 @ 23:[address] Richard Gaona MD) COVID-19 (Acute) Hypoxia (Acute) Hypokalemia (Acute) Respiratory insufficiency (Acute) Subjective: Patient did well overnight. Patient was found off of supplemental oxygen saturating 82%. Patient was placed back on 8 L nasal cannula with improvement in saturations to 95%. Patient states she felt subjectively improved compared to previous. - Physical Exam Vitals/I&O's: Vital Signs Temp Pulse Resp BP Pulse Ox 36.9 C 77 18 111/66 95 08/16/20 01:05 08/16/20 01:05 08/16/20 01:05 08/16/20 01:05 08/16/20 01:05 Oxygen Flow Rate (L/min) 9 Oxygen Delivery Method Nasal Cannula Weight: 72.6 kg Body Mass Index (BMI) 28.9 Intake and Output for Last 24 Hours 08/14/20 08/15/20 08/16/20 23:59 23:59 23:59 Intake Total 1620 / 1860 1424 / 1664 240 / 240 Output Total 735 / 1035 1950 / 2500 775 / 775 Balance 885 / 825 -526 / -836 -535 / -535 General: Alert, Oriented x3, Cooperative, - - Mild respiratory distress that resolved with supplemental oxygen HEENT: Atraumatic, PERRLA, EOMI, Normocephalic, - - Slight scleral injection Oral: Moist Mucosa, No Gingival or Mucosal Lesions/ Ulcerations Neck: Supple, No JVD, No Nodes, Trachea Midline Lungs: No rhonchi, No wheeze, No rales, Diminished, - - Symmetric expansion. No dullness to percussion. Cardiovascular: Regular rate, Regular Rhythm, Normal S1, Normal S2, No murmurs, No rub noted, No Gallop Abdomen: Bowel Sounds Present, Soft, Non Tender, Non-Distended Extremities: No clubbing, No cyanosis, Edema Skin: - - No change compared to previous Musculoskeletal: No Tenderness to Palpation of Joints or Extremities Lymphatic: No Cervical, Supraclavicular, or Inguinal Adenopathy Neurological: Cranial nerves II-XII grossly intact, Neuro grossly intact, Motor Exam 5/5 strength throughout Psych/Mental Status: Appropriate, Flat Affect Laboratory Results 08/16/20 04:42: WBC 7.8, RBC 4.11 L, Hgb 11.7 L, Hct 36.9 L, MCV 89.8, MCH 28.5, MCHC 31.7 L, RDW Std Deviation 47.6 H, RDW Coeff of Brittanie 14.7 H, Plt Count 546 H, MPV 10.4, Immature Gran % (Auto) 3.100 H, Neut % (Auto) 66.4, Lymph % (Auto) 16.5 L, [place] % (Auto) 11.4 H, Eos % (Auto) 2.2, Baso % (Auto) 0.4, Absolute Neuts (auto) 5.2, Absolute Lymphs (auto) 1.29, Nucleated RBC % 0 08/16/20 04:42: Sodium 137, Potassium 4.1, Chloride 104, Carbon Dioxide 27.0, Anion Gap 6, BUN 22 H, Creatinine 0.71, Estim Creat Clear Calc 68.21, Est GFR (MDRD) Af Amer 106, Est GFR (MDRD) Non-Af 87, BUN/Creatinine Ratio 30.9 H, Glucose 96, Calcium 8.8, Magnesium 2.1, Total Bilirubin 0.50, AST 44 H, ALT 227 H, Alkaline Phosphatase 96, Total Protein 5.4 L, Albumin 2.3 L, Globulin 3.1, Albumin/Globulin Ratio 0.7 L Current Medications Acetaminophen (Acetaminophen 325 Mg Tablet) 650 mg PO Q6H PRN PRN PRN Reason: Pain Score 1-10/Temp > 100.7 F Hydrocodone Bitart/Acetaminophen (Hydrocodone Bitartrate/Apap 5/325 Tablet) 1 tablet PO Q4H PRN PRN PRN Reason: Pain Score 6-10 Last Admin: 08/15/20 23:31 Dose: 1 tablet Documented by: Albuterol Sulfate (Albuterol 2.5 Mg/3 Ml Vial.Neb.) 2.5 mg INHALATION Q2H PRN PRN PRN Reason: Dyspnea, wheezing Apixaban (Apixaban 5 Mg Tablet) 5 mg PO BID [facility] Last Admin: 08/15/20 19:54 Dose: 5 mg Documented by: Calamine/Phenol (Menthol/Lanolin/Calamine/Znox 113 Gm Tube) 1 applic TOPICAL TID@1000,1700,2200 [facility]; Protocol Last Admin: 08/15/20 19:53 Dose: 1 applicatio Documented by: Famotidine (Famotidine 20 Mg Tablet) 20 mg PO BID [facility] Last Admin: 08/15/20 19:54 Dose: 20 mg Documented by: Furosemide (Furosemide 20 Mg/2 Ml Vial) 20 mg IV BID@1000,1700 [facility] Last Admin: 08/15/20 17:54 Dose: 20 mg Documented by: Sodium Chloride () 250 mls @ 15 mls/hr IV .[id number] PRN PRN Reason: Saline Flush Last Infusion: 08/14/20 19:20 Dose: Infused Documented by: Sodium Chloride () 250 mls @ 15 mls/hr IV .[id number] PRN PRN Reason: Additional IVPB Infusion Levothyroxine Sodium (Levothyroxine 25 Mcg Tablet) 25 mcg PO DAILY [facility] Last Admin: 08/15/20 10:17 Dose: 25 mcg Documented by: Metoclopramide HCl (Metoclopramide 5 Mg Tablet) 5 mg PO BIDAC [facility] Last Admin: 08/15/20 16:05 Dose: 5 mg Documented by: Ondansetron HCl (Ondansetron 4 Mg/2 Ml Vial) 4 mg IV Q6H PRN PRN PRN Reason: NAUSEA/VOMITING Last Admin: 08/11/20 20:09 Dose: 4 mg Documented by: Sodium Chloride (0.9% Saline Lock 10 Ml Syringe) 10 - 40 ml IV UD PRN PRN Reason: SALINE FLUSH Last Admin: 08/15/20 19:56 Dose: 10 ml Documented by: Sodium Chloride (Sodium Chloride 0.65% 1 [place].Btl) 1 spray NASAL 4X/DAY PRN PRN PRN Reason: NASAL DRYNESS Last Admin: 08/15/20 17:53 Dose: 1 spray Documented by: Medical Necessity - Tobacco Use Smoking Status: Former smoker Tobacco Use: Cigarettes Assessment/Plan All Active Problems (Last Reviewed 07/16/20 @ 23:[address] Richard Gaona MD) COVID-19 (Acute) Hypoxia (Acute) Hypokalemia (Acute) Respiratory insufficiency (Acute) RECOMMENDATIONS: 1. Advance diet per speech recommendations 2. Nasal cannula oxygen as needed. Add nasal saline. Wean oxygen as tolerated 3. Continue diuretics as renal function allows 4. Completed meropenem and Decadron dosing 5. Continue Eliquis for anticoagulation 6. Increase activity as tolerated IMPRESSIONS: 1. Acute hypoxemic respiratory failure secondary to COVID-19 pneumonia/pulmonary emboli Patient has significantly improved from a respiratory standpoint. The patient has already completed a treatment course of remdesivir and Decadron. She also received convalescent plasma. CTA chest obtained during this hospitalization did reveal small upper lobe pulmonary emboli. Patient has been weaned to nasal cannula oxygen and tolerating well. Likely okay to evaluate for senior care facility for discharge planning. Continue to encourage i ncentive spirometer and diuresis as renal function tolerates. 2. Distributive shock Resolved. The patient did develop hemodynamic instability as a consequence of sedative medication use, requiring vasopressor initiation initially. Continue to monitor blood pressure closely. 3. Acute kidney injury Resolved. Suspect likely secondary to ischemic ATN in the setting of #1, 2 and possible postobstructive pathology given clogged Gr. Plan to continue current supportive measures, including vasopressor support to maintain hemodynamic stability. Continue to monitor urine output. No current indication for renal replacement therapy. Continue diuretic challenges as patient tolerates. 4. Advanced age/anxiety/hypothyroidism/hypertension/GERD/metabolic encephalopathy Complicates care, management, recovery and prognosis. Continue current supportive measures. Continue delirium measures. Patient may improve after discontinuation of Decadron. Continue to treat chronic back pain Inpatient E&M: [id number] [facility] Hosp L2
--- NOTE | 2020-08-16 07:42 | PN_ITS ---
Patient Problems: Active and Suspected Problems (Last Reviewed 07/16/20 @ 23:[address] Richard Gaona MD) COVID-19 (Acute) Hypoxia (Acute) Hypokalemia (Acute) Respiratory insufficiency (Acute) Reason for Visit: Follow-up for COVID-19 pneumonia Objective: No fever or chills. Patient on 6 L of oxygen. Improved from 9 L of oxygen yesterday. Physical exam General: Alert, Oriented x3, Cooperative HEENT: Atraumatic, PERRLA, EOMI, Normocephalic Oral: No Gingival or Mucosal Lesions/ Ulcerations Neck: Supple, No JVD, Negative Carotid Bruits Lungs: Air entry diminished in bilateral lung bases. No crepitation/rhonchi Cardiovascular: Regular rate, Regular Rhythm, Normal S1, Normal S2, No murmurs Abdomen: Bowel Sounds Present, Soft, Non Tender, Non-Distended : No renal angle tenderness. No suprapubic tenderness. Extremities: No edema, Capillary Refill Less than 3 Seconds Skin: No rashes, No breakdown Musculoskeletal: No Tenderness to Palpation of Joints or Extremities. Mild muscle atrophy of extremities Neurological: Cranial nerves II-XII grossly intact, Deep Tendon Reflexes 2+/4 and Symmetrical, Neuro grossly intact Psych/Mental Status: Normal Affect, Appropriate. Vitals/I&O's: Vital Signs Temp Pulse Resp BP Pulse Ox 98.4 F 77 18 111/66 95 08/16/20 01:05 08/16/20 01:05 08/16/20 01:05 08/16/20 01:05 08/16/20 01:05 Oxygen Flow Rate (L/min) 9 Oxygen Delivery Method Nasal Cannula Weight: 160 lb 0.889 oz Body Mass Index (BMI) 28.9 Intake and Output for Last 24 Hours 08/14/20 08/15/20 08/16/20 23:59 23:59 23:59 Intake Total 1620 / 1860 1424 / 1664 240 / 240 Output Total 735 / 1035 1950 / 2500 775 / 775 Balance 885 / 825 -526 / -836 -535 / -535 Laboratory Results 08/16/20 04:42: WBC 7.8, RBC 4.11 L, Hgb 11.7 L, Hct 36.9 L, MCV 89.8, MCH 28.5, MCHC 31.7 L, RDW Std Deviation 47.6 H, RDW Coeff of Brittanie 14.7 H, Plt Count 546 H, MPV 10.4, Immature Gran % (Auto) 3.100 H, Neut % (Auto) 66.4, Lymph % (Auto) 16.5 L, [place] % (Auto) 11.4 H, Eos % (Auto) 2.2, Baso % (Auto) 0.4, Absolute Neuts (auto) 5.2, Absolute Lymphs (auto) 1.29, Nucleated RBC % 0 08/16/20 04:42: Sodium 137, Potassium 4.1, Chloride 104, Carbon Dioxide 27.0, Anion Gap 6, BUN 22 H, Creatinine 0.71, Estim Creat Clear Calc 68.21, Est GFR (MDRD) Af Amer 106, Est GFR (MDRD) Non-Af 87, BUN/Creatinine Ratio 30.9 H, Glucose 96, Calcium 8.8, Magnesium 2.1, Total Bilirubin 0.50, AST 44 H, ALT 227 H, Alkaline Phosphatase 96, Total Protein 5.4 L, Albumin 2.3 L, Globulin 3.1, Albumin/Globulin Ratio 0.7 L Current Medications Acetaminophen (Acetaminophen 325 Mg Tablet) 650 mg PO Q6H PRN PRN PRN Reason: Pain Score 1-10/Temp > 100.7 F Hydrocodone Bitart/Acetaminophen (Hydrocodone Bitartrate/Apap 5/325 Tablet) 1 tablet PO Q4H PRN PRN PRN Reason: Pain Score 6-10 Last Admin: 08/15/20 23:31 Dose: 1 tablet Documented by: Albuterol Sulfate (Albuterol 2.5 Mg/3 Ml Vial.Neb.) 2.5 mg INHALATION Q2H PRN PRN PRN Reason: Dyspnea, wheezing Apixaban (Apixaban 5 Mg Tablet) 5 mg PO BID [facility] Last Admin: 08/15/20 19:54 Dose: 5 mg Documented by: Calamine/Phenol (Menthol/Lanolin/Calamine/Znox 113 Gm Tube) 1 applic TOPICAL TID@1000,1700,2200 [facility]; Protocol Last Admin: 08/15/20 19:53 Dose: 1 applicatio Documented by: Famotidine (Famotidine 20 Mg Tablet) 20 mg PO BID [facility] Last Admin: 08/15/20 19:54 Dose: 20 mg Documented by: Furosemide (Furosemide 20 Mg/2 Ml Vial) 20 mg IV BID@1000,1700 [facility] Last Admin: 08/15/20 17:54 Dose: 20 mg Documented by: Sodium Chloride () 250 mls @ 15 mls/hr IV .[id number] PRN PRN Reason: Saline Flush Last Infusion: 08/14/20 19:20 Dose: Infused Documented by: Sodium Chloride () 250 mls @ 15 mls/hr IV .[id number] PRN PRN Reason: Additional IVPB Infusion Levothyroxine Sodium (Levothyroxine 25 Mcg Tablet) 25 mcg PO DAILY [facility] Last Admin: 08/15/20 10:17 Dose: 25 mcg Documented by: Metoclopramide HCl (Metoclopramide 5 Mg Tablet) 5 mg PO BIDAC [facility] Last Admin: 08/15/20 16:05 Dose: 5 mg Documented by: Ondansetron HCl (Ondansetron 4 Mg/2 Ml Vial) 4 mg IV Q6H PRN PRN PRN Reason: NAUSEA/VOMITING Last Admin: 08/11/20 20:09 Dose: 4 mg Documented by: Sodium Chloride (0.9% Saline Lock 10 Ml Syringe) 10 - 40 ml IV UD PRN PRN Reason: SALINE FLUSH Last Admin: 08/15/20 19:56 Dose: 10 ml Documented by: Sodium Chloride (Sodium Chloride 0.65% 1 [place].Btl) 1 spray NASAL 4X/DAY PRN PRN PRN Reason: NASAL DRYNESS Last Admin: 08/15/20 17:53 Dose: 1 spray Documented by: Medical Necessity - Tobacco Use Smoking Status: Former smoker Tobacco Use: Cigarettes Assessment/Plan All Active Problems (Last Reviewed 07/16/20 @ 23:[address] Richard Gaona MD) COVID-19 (Acute) Hypoxia (Acute) Hypokalemia (Acute) Respiratory insufficiency (Acute) This 64-year-old female was admitted with productive cough of clear sputum, diarrhea, and malaise and high fever 102 Fahrenheit and Covid test came positive. Chest CTA shows nonocclusive pulmonary emboli in the upper lobe. Diffuse increased interstitial markings involving both lobes worse on the lower lobes. 1. COVID 19 bilateral pneumonia: Repeat chest x-ray shows decreasing bilateral infiltrates. Positive on 07/14/2020 Completed dexamethasone x 2, remdesivir, and convalescent plasma ID following, defer to ID about timing to discontinue isolation 2. Acute hypoxic respiratory failure due to COVID-19 pneumonia, bilateral nonocclusive PE, and acute lung injury Gradually improving. Still on 6 to 8 L of oxygen. Patient completed meropenem. Incentive spirometry and chest physiotherapy. Sputum culture Karie albicans consistent with contamination. Extubated 08/12 3. JARRETT resolved 2/2 obstructed catheter 4. Septic shock resolved 2/2 COVID-19 and pneumonia off pressors 5. PE apixaban, treat for 6 months 6. Prognosis: guarded, though improving. DNRCCA anticipate continue prolonged recovery, though may not have much physiologic reserve to endure another significant medical insult. May need LTAC 7. Dysphagia continue modified diet speech therapy 8. Disposition: LTAC v SNF. Case mgmt to follow up Inpatient E&M: [id number] [facility] Hosp L2
[2020-08-16] MEDS: HYDROcodone Bitartrate/Apap 5/325 Tablet PO ×3 (09:30→21:16)
[2020-08-16] MEDS: Menthol/Lanolin/Calamine/Znox 113 GM Tube 1 APPLIC TOPICAL ×3 (09:31→21:21)
[2020-08-16] MEDS: Metoclopramide 5 MG TABLET PO ×2 (09:31→18:07)
[2020-08-16] MEDS: Furosemide 20 MG/2 ML VIAL IV ×2 (09:32→18:08)
[2020-08-16] MEDS: 0.9% Saline Lock 10 ML Syringe IV ×3 (09:32→21:19)
[2020-08-16] MEDS: Levothyroxine 25 MCG TABLET PO (09:32)
[2020-08-16] MEDS: Famotidine 20 MG Tablet PO ×2 (09:32→21:17)
[2020-08-16 09:45] VITALS: BP 113/72; PULSE 91; RESP 18; TEMP 36.7; O2SAT 95
[2020-08-16 13:03] LABS: Pathologist Review Reviewed
--- NOTE | 2020-08-16 13:06 | CASEMGMT ---
Addendum entered by Deb Pagan 08/16/20 14:38: SW spoke w/step daughter Yenifer about the discharge plan. She is in agreement with a referral being sent to [facility]. 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 SW explained will see how pt does with therapy in regard to her oxygen levels, and then make a decision from there. Pt did get up with therapy and was on 15L O2, dropped to 82%. SW called step daughter Yenifer back, let her know this information. She is not sure that [facility] will be able to manage her oxygen needs based on this information, and is okay w/JUN sending referral to [facility]. SW explained if [facility] cannot take pt, we may need to reconsider LTACH, as there are not any other nursing homes in the area that can handle the oxygen levels for this pt. Daughter states understanding. SW faxed referral to [facility], will continue to follow. AMARI Selby Addendum entered by Deb Pagan 08/16/20 13:13: SW called [facility], spoke w/Rosario in admissions, they may consider pt, and would look at the referral. [facility] has higher capabilities for respiratory support, so may be an option for this pt. As documented in prior notes, no other SNF in the area that can assist with higher level respiratory units will take pts with COVID. SW explained is waiting for daughter to return call to see if she would like a referral sent to [facility]. SW will continue to follow. AMARI Selby Original Note: Pt now on MS2, discharge plan continues to be SNF vs LTACH depending on pt's oxygen needs. JUN called jerry Yenifer, message left. JUN/YING will continue to follow. AMARI Selby
--- NOTE | 2020-08-16 13:34 | PCM.PN.ID ---
Patient Problems: Active and Suspected Problems (Last Reviewed 07/16/20 @ 23:[address] Richard Gaona MD) COVID-19 (Acute) Hypoxia (Acute) Hypokalemia (Acute) Respiratory insufficiency (Acute) Subjective: Feeling better, breathing improved, out of icu. - Physical Exam Vitals/I&O's: Vital Signs Temp Pulse Resp BP Pulse Ox 98.0 F 91 18 113/72 95 08/16/20 09:45 08/16/20 09:45 08/16/20 09:45 08/16/20 09:45 08/16/20 09:45 Oxygen Flow Rate (L/min) 6 Oxygen Delivery Method Nasal Cannula Weight: 72.6 kg Body Mass Index (BMI) 28.9 Intake and Output for Last 24 Hours 08/14/20 08/15/20 08/16/20 23:59 23:59 23:59 Intake Total 1620 / 1860 1424 / 1664 240 / 240 Output Total 735 / 1035 1950 / 2500 1375 / 1375 Balance 885 / 825 -526 / -836 -1135 / -1135 General: Alert, Cooperative, No apparent distress Lungs: Clear to auscultation, Diminished Cardiovascular: Regular rate, Regular Rhythm Abdomen: Soft, Non Tender, Non-Distended Skin: No rashes Laboratory Results 08/14/20 05:00: Diff Path Review Reviewed 08/16/20 04:42: WBC 7.8, RBC 4.11 L, Hgb 11.7 L, Hct 36.9 L, MCV 89.8, MCH 28.5, MCHC 31.7 L, RDW Std Deviation 47.6 H, RDW Coeff of Brittanie 14.7 H, Plt Count 546 H, MPV 10.4, Immature Gran % (Auto) 3.100 H, Neut % (Auto) 66.4, Lymph % (Auto) 16.5 L, [place] % (Auto) 11.4 H, Eos % (Auto) 2.2, Baso % (Auto) 0.4, Absolute Neuts (auto) 5.2, Absolute Lymphs (auto) 1.29, Nucleated RBC % 0 08/16/20 04:42: Sodium 137, Potassium 4.1, Chloride 104, Carbon Dioxide 27.0, Anion Gap 6, BUN 22 H, Creatinine 0.71, Estim Creat Clear Calc 68.21, Est GFR (MDRD) Af Amer 106, Est GFR (MDRD) Non-Af 87, BUN/Creatinine Ratio 30.9 H, Glucose 96, Calcium 8.8, Magnesium 2.1, Total Bilirubin 0.50, AST 44 H, ALT 227 H, Alkaline Phosphatase 96, Total Protein 5.4 L, Albumin 2.3 L, Globulin 3.1, Albumin/Globulin Ratio 0.7 L Current Medications Acetaminophen (Acetaminophen 325 Mg Tablet) 650 mg PO Q6H PRN PRN PRN Reason: Pain Score 1-10/Temp > 100.7 F Hydrocodone Bitart/Acetaminophen (Hydrocodone Bitartrate/Apap 5/325 Tablet) 1 tablet PO Q4H PRN PRN PRN Reason: Pain Score 6-10 Last Admin: 08/16/20 09:30 Dose: 1 tablet Documented by: Albuterol Sulfate (Albuterol 2.5 Mg/3 Ml Vial.Neb.) 2.5 mg INHALATION Q2H PRN PRN PRN Reason: Dyspnea, wheezing Apixaban (Apixaban 5 Mg Tablet) 5 mg PO BID [facility] Last Admin: 08/15/20 19:54 Dose: 5 mg Documented by: Calamine/Phenol (Menthol/Lanolin/Calamine/Znox 113 Gm Tube) 1 applic TOPICAL TID@1000,1700,2200 [facility]; Protocol Last Admin: 08/16/20 09:31 Dose: 1 applicatio Documented by: Famotidine (Famotidine 20 Mg Tablet) 20 mg PO BID [facility] Last Admin: 08/16/20 09:32 Dose: 20 mg Documented by: Furosemide (Furosemide 20 Mg/2 Ml Vial) 20 mg IV BID@1000,1700 [facility] Last Admin: 08/16/20 09:32 Dose: 20 mg Documented by: Sodium Chloride () 250 mls @ 15 mls/hr IV .[id number] PRN PRN Reason: Saline Flush Last Infusion: 08/14/20 19:20 Dose: Infused Documented by: Sodium Chloride () 250 mls @ 15 mls/hr IV .[id number] PRN PRN Reason: Additional IVPB Infusion Levothyroxine Sodium (Levothyroxine 25 Mcg Tablet) 25 mcg PO DAILY [facility] Last Admin: 08/16/20 09:32 Dose: 25 mcg Documented by: Metoclopramide HCl (Metoclopramide 5 Mg Tablet) 5 mg PO BIDAC DIAZ Last Admin: 08/16/20 09:31 Dose: 5 mg Documented by: Ondansetron HCl (Ondansetron 4 Mg/2 Ml Vial) 4 mg IV Q6H PRN PRN PRN Reason: NAUSEA/VOMITING Last Admin: 08/11/20 20:09 Dose: 4 mg Documented by: Sodium Chloride (0.9% Saline Lock 10 Ml Syringe) 10 - 40 ml IV UD PRN PRN Reason: SALINE FLUSH Last Admin: 08/16/20 09:32 Dose: 10 ml Documented by: Sodium Chloride (Sodium Chloride 0.65% 1 [place].Btl) 1 spray NASAL 4X/DAY PRN PRN PRN Reason: NASAL DRYNESS Last Admin: 08/15/20 17:53 Dose: 1 spray Documented by: Medical Necessity - Tobacco Use Smoking Status: Former smoker Tobacco Use: Cigarettes Route of nutrition/ use of supplements: [] Nutritional Intake: [] IV Site: [] Gr Catheter: [] - Assessment/Plan Antibiotics: [] Assessment/Plan: [] Active and Suspected Problems (Last Reviewed 07/16/20 @ 23:[address] Richard Gaona MD) COVID-19 (Acute) Hypoxia (Acute) Hypokalemia (Acute) Respiratory insufficiency (Acute) Sx started 07/10/20. On dex, completed remdesivir. Got plasma 07/19. 07/30 felt worse with fever overnight, high O2 reqs. Started on empiric vanc/zosyn. Cxs neg, CT showed PE, and PCT was less than 0.2. Stopped vanc 08/01, stopped zosyn 08/02. Required intubation, empiric gisella started 08/04, paralyzed, pressor. Now off vent, on nasal cannula, out of icu, off gisella since 08/13. Much improved. Recommend removal of R neck temp cvc once peripheral iv can be placed. She is over 5 weeks into this infection, improving O2, ok to d/c isolation. Will follow, d/w nursing
[2020-08-16 13:42] VITALS: O2SAT 79
[2020-08-16 17:28] VITALS: BP 112/60; PULSE 80; RESP 16; TEMP 36.9; O2SAT 94
[2020-08-16] MEDS: APIXABAN 5 MG TABLET PO ×2 (18:06→21:17)
[2020-08-16 21:05] VITALS: BP 98/59; PULSE 90; RESP 18; TEMP 36.8; O2SAT 96
[2020-08-16 21:22] VITALS: RESP 20
[2020-08-17 02:47] VITALS: BP 101/70; PULSE 88; RESP 20; TEMP 36.4; O2SAT 94
[2020-08-17] MEDS: HYDROcodone Bitartrate/Apap 5/325 Tablet PO ×2 (02:48→08:08)
[2020-08-17 02:51] VITALS: RESP 20
[2020-08-17 07:58] LABS: Anion Gap 8 (5-15); BUN 23 mg/dL (7-18); BUN/Creat Ratio 27.6 RATIO (10-20); Chloride 104 mmol/L (98-107); Creatinine, Serum 0.83 mg/dL (0.55-1.02); EST Glomerular Filtration Rate 73 mL/min (>60); Est Glom Filt Rate - Afr Amer 88 mL/min (>60); Estimated Creatinine Clearance 58.35 ml/min; Glucose 121 mg/dL (74-106); Potassium 3.3 mmol/L (3.5-5.1); Sodium Level 139 mmol/L (136-145)
[2020-08-17] MEDS: Metoclopramide 5 MG TABLET PO (08:08)
[2020-08-17 09:27] VITALS: BP 109/66; PULSE 96; RESP 18; TEMP 36.4; O2SAT 94
--- NOTE | 2020-08-17 09:30 | CASEMGMT ---
Addendum entered by Carlie Mendoza 08/17/20 11:26: JUN received message from Katy at [facility] stating due to COVID they are not requiring pre-certs for SNF as long as SNF is in network and pt is appropriate for SNF. Katy aware that pt has been at [facility] for a while now. Katy states that the SNF will just need to submit information within 24 hours of pt's admission to SNF. JUN placed a call to Rosario at [facility] and updated her on message from Katy at [facility]. Rosario states she is able to accept pt today. SW updated physician. Addendum entered by Carlie Mendoza 08/17/20 10:16: JUN received call from Rosario at [facility] stating she is able to accept pt. JUN updated Rosario that this worker will send referral to [facility] to get the initial approval and then will call Rosario to then submit for pre-cert. Rosario states understanding. SW faxed referral to [facility]. JUN placed a call to [facility] and left message regarding referral. Plan: [facility] pending pre-cert LORNA Henning Original Note: Social Work Note JUN placed a call to Rosario in admissions at [facility] and left message regarding referral. JUN waiting for call back. Carlie URIBE, LACE TEARING SUPERVISOR
[2020-08-17] MEDS: Menthol/Lanolin/Calamine/Znox 113 GM Tube 1 APPLIC TOPICAL (09:51)
[2020-08-17] MEDS: Famotidine 20 MG Tablet PO (09:52)
[2020-08-17] MEDS: Levothyroxine 25 MCG TABLET PO (09:52)
[2020-08-17] MEDS: Furosemide 20 MG/2 ML VIAL IV (09:52)
[2020-08-17] MEDS: APIXABAN 5 MG TABLET PO (09:52)
[2020-08-17] MEDS: 0.9% Saline Lock 10 ML Syringe IV (09:53)
--- NOTE | 2020-08-17 11:30 | PCM.TXEXTCAR ---
- Diet 08/12/20 12:06 Diet: Regular - General Food consistency:: Pureed Liquid Consistency:: Regular/Thin Is pt able to select menu?: Yes Diet Comments: ensure pudding w/ breakfast; magic cup L/D - Routine Orders/Code Status Suppository Type: Dulcolax 10mg Suppository Frequency: Daily PRN Routine Lab Work: BMP - Weekly while the patient is on Lasix Code Status: DNRCC-A - With intubation - Wound(s) tongue Wound Type: Thrush - Therapies Weight Bearing: Weight bearing as tolerated Extremity Affected:: Bilateral Lower Physical Therapy: Eval and Treat Occupational Therapy: Eval and Treat Speech Therapy: Eval and Treat - Allergies/Procedures Done in Hospital Allergies/Adverse Reactions: Allergies DAVID Inhibitors Allergy (Verified 07/16/20 15:04) Rash codeine Allergy (Verified 07/16/20 15:04) Vomiting walnut Allergy (Verified 07/16/20 15:04) Food Allergy - Type of Care/Length of Stay Estimated LOS: Convalescent Care Less Than 30 days Type of Care Needed: Skilled Rehab Potential: Good Prognosis: Good - Additional Orders/Day of Discharge Day of Discharge: 08/17/20 - Dietary and Speech Recommendations Dietitian Recommendations/Changes: Will continue ensure pudding w/ breakfast; magic cup L/D for additional calories/protein if consumed. - Follow Up Care Primary Care Physician: Fabricio Lemos MD [Primary Care Provider] - Please follow up with your Primary Care Physician in: In 2 weeks Please Follow Up With: Tobias Gonsalves MD When: covid 19 with acute hypoxic resp failure in 2 weeks
--- NOTE | 2020-08-17 12:16 | PCM.DC.SUM ---
Discharge Date and Diagnosis - Problem List Patient Problems: Active and Suspected Problems (Last Reviewed 07/16/20 @ 23:[address] Richard Gaona MD) COVID-19 (Acute) Hypoxia (Acute) Hypokalemia (Acute) Respiratory insufficiency (Acute) Date of Admission: 07/16/20 Date of Discharge: 08/17/20 - Primary Discharge Diagnosis Acute Problems: Active Problems (Last Reviewed 07/16/20 @ 23:[address] Richard Gaona MD) COVID-19 (Acute) Hypoxia (Acute) Hypokalemia (Acute) Respiratory insufficiency (Acute) Bilateral upper lobe pulmonary embolism Acute hypoxic respiratory failure secondary to bilateral COVID-19 pneumonia Hospital Course and Treatment Summary of Care Provided: [] This 64-year-old female was admitted with productive cough of clear sputum, diarrhea, and malaise and high fever 102 Fahrenheit, symptoms started on 07/10 2020 and Covid test came positive. Chest CTA shows nonocclusive pulmonary emboli in the upper lobe. Diffuse increased interstitial markings involving both lobes worse on the lower lobes. 1. COVID 19 bilateral pneumonia: Repeat chest x-ray shows decreasing bilateral infiltrates. Positive on 07/14/2020 Completed dexamethasone x 2, remdesivir, and convalescent plasma on 07/19. Patient is over 5 weeks into the infection with improving oxygen saturation. ID recommended to discontinue isolation. 2. Acute hypoxic respiratory failure due to COVID-19 pneumonia, bilateral nonocclusive PE, and acute lung injury Gradually improving. Initially patient was started on empiric antibiotic vancomycin and Zosyn. Cultures negative. Procalcitonin was less than 0.13. Vancomycin was stopped 08/01. Zosyn stopped on 08/02. Patient required intubation and empiric meropenem was started 08/04, paralytic medication. Patient was extubated on 08/12. Patient completed meropenem. Incentive spirometry and chest physiotherapy. Sputum culture Karie albicans consistent with contamination. 3. JARRETT resolved 2/2 obstructed catheter 4. Septic shock resolved 2/2 COVID-19 and pneumonia off pressors 5. PE apixaban, treat for 6 months 6. Prognosis: guarded, though improving. DNRCCA with intubation. 7. Dysphagia: On pur?ed consistency diet with regular/thin liquid. Discharge medication reconciliation done. Discharge follow-up instructions completed. Discharge process discussed with the patient and all questions were answered to patient's satisfaction. Discharged to SNF for continued PT, OT and speech/swallow therapy. Total time spent, exact 35 minutes on discharge meds reconciliation, examination, coordination of care with nurses and ancillary staff, review of imaging and blood test and discussion with the patient on follow-up instructions Patient Problems: Active and Suspected Problems (Last Reviewed 07/16/20 @ 23:[address] Richard Gaona MD) COVID-19 (Acute) Hypoxia (Acute) Hypokalemia (Acute) Respiratory insufficiency (Acute) Objective: No fever or chills. Patient on 6 L of oxygen. Patient does not have cough but feels generalized weakness being in the ICU on ventilator for long time Physical exam General: Alert, Oriented x3, Cooperative HEENT: Atraumatic, PERRLA, EOMI, Normocephalic Oral: No Gingival or Mucosal Lesions/ Ulcerations Neck: Supple, No JVD, Negative Carotid Bruits Lungs: Air entry diminished in bilateral lung bases. No crepitation/rhonchi Cardiovascular: Regular rate, Regular Rhythm, Normal S1, Normal S2, No murmurs Abdomen: Bowel Sounds Present, Soft, Non Tender, Non-Distended : No renal angle tenderness. No suprapubic tenderness. Extremities: No edema, Capillary Refill Less than 3 Seconds Skin: No rashes, No breakdown Musculoskeletal: No Tenderness to Palpation of Joints or Extremities. Mild muscle atrophy of extremities Neurological: Cranial nerves II-XII grossly intact, Deep Tendon Reflexes 2+/4 and Symmetrical, Neuro grossly intact Psych/Mental Status: Normal Affect, Appropriate. - Physical Exam Vitals/I&O's: Vital Signs Temp Pulse Resp BP Pulse Ox 97.6 F L 96 18 109/66 94 08/17/20 09:27 08/17/20 09:27 08/17/20 09:27 08/17/20 09:27 08/17/20 09:27 Oxygen Flow Rate (L/min) 6 Oxygen Delivery Method Nasal Cannula Weight: 159 lb 9.835 oz Body Mass Index (BMI) 28.9 Intake and Output for Last 24 Hours 08/15/20 08/16/20 08/17/20 23:59 23:59 23:59 Intake Total 1424 / 1664 240 / 240 Output Total 1950 / 2500 1775 / 2775 1100 / 1100 Balance -526 / -836 -1535 / -2535 -1100 / -1100 Laboratory Results 08/14/20 05:00: Diff Path Review Reviewed 08/17/20 07:12: Sodium 139, Potassium 3.3 L, Chloride 104, Carbon Dioxide 27.0, Anion Gap 8, BUN 23 H, Creatinine 0.83, Estim Creat Clear Calc 58.35, Est GFR (MDRD) Af Amer 88, Est GFR (MDRD) Non-Af 73, BUN/Creatinine Ratio 27.6 H, Glucose 121 H, Calcium 9.0 Current Medications Acetaminophen (Acetaminophen 325 Mg Tablet) 650 mg PO Q6H PRN PRN PRN Reason: Pain Score 1-10/Temp > 100.7 F Hydrocodone Bitart/Acetaminophen (Hydrocodone Bitartrate/Apap 5/325 Tablet) 1 tablet PO Q4H PRN PRN PRN Reason: Pain Score 6-10 Last Admin: 08/17/20 08:08 Dose: 1 tablet Documented by: Albuterol Sulfate (Albuterol 2.5 Mg/3 Ml Vial.Neb.) 2.5 mg INHALATION Q2H PRN PRN PRN Reason: Dyspnea, wheezing Apixaban (Apixaban 5 Mg Tablet) 5 mg PO BID [facility] Last Admin: 08/17/20 09:52 Dose: 5 mg Documented by: Calamine/Phenol (Menthol/Lanolin/Calamine/Znox 113 Gm Tube) 1 applic TOPICAL TID@1000,1700,2200 [facility]; Protocol Last Admin: 08/17/20 09:51 Dose: 1 applicatio Documented by: Famotidine (Famotidine 20 Mg Tablet) 20 mg PO BID [facility] Last Admin: 08/17/20 09:52 Dose: 20 mg Documented by: Furosemide (Furosemide 20 Mg/2 Ml Vial) 20 mg IV BID@1000,1700 [facility] Last Admin: 08/17/20 09:52 Dose: 20 mg Documented by: Sodium Chloride () 250 mls @ 15 mls/hr IV .[id number] PRN PRN Reason: Saline Flush Last Infusion: 08/14/20 19:20 Dose: Infused Documented by: Sodium Chloride () 250 mls @ 15 mls/hr IV .[id number] PRN PRN Reason: Additional IVPB Infusion Levothyroxine Sodium (Levothyroxine 25 Mcg Tablet) 25 mcg PO DAILY [facility] Last Admin: 08/17/20 09:52 Dose: 25 mcg Documented by: Metoclopramide HCl (Metoclopramide 5 Mg Tablet) 5 mg PO BIDAC [facility] Last Admin: 08/17/20 08:08 Dose: 5 mg Documented by: Ondansetron HCl (Ondansetron 4 Mg/2 Ml Vial) 4 mg IV Q6H PRN PRN PRN Reason: NAUSEA/VOMITING Last Admin: 08/11/20 20:09 Dose: 4 mg Documented by: Potassium Chloride (Potassium Chloride 20 Meq Tablet) 40 meq PO DAILYCM [facility] Stop: 08/19/20 08:09 Last Admin: 08/17/20 09:24 Dose: 40 meq Documented by: Sodium Chloride (0.9% Saline Lock 10 Ml Syringe) 10 - 40 ml IV UD PRN PRN Reason: SALINE FLUSH Last Admin: 08/17/20 09:53 Dose: 10 ml Documented by: Sodium Chloride (Sodium Chloride 0.65% 1 [place].Btl) 1 spray NASAL 4X/DAY PRN PRN PRN Reason: NASAL DRYNESS Last Admin: 08/15/20 17:53 Dose: 1 spray Documented by: Home Medications: Medications to take at Discharge Levothyroxine [Synthroid] 25 mcg PO DAILY 11/03/17 Gabapentin [Neurontin] 400 mg PO TID 07/16/20 Potassium Citrate [Potassium Citrate ER] 40 meq PO DAILY 07/16/20 Apixaban [Eliquis] 5 mg PO BID #60 tab 08/17/20 Furosemide [Lasix] 20 mg PO BID #20 tab 08/17/20 Hydrochlorothiazide [Hctz] 25 mg PO DAILY #0 08/17/20 Losartan Potassium [Cozaar] 25 mg PO DAILY #0 08/17/20 Omeprazole 40 mg PO DAILY #0 08/17/20 Following Prescriptions Were Given to Patient: Apixaban [Eliquis] 5 mg PO BID #60 tab Transmission Status: Received by [facility] Furosemide [Lasix] 20 mg PO BID #20 tab Transmission Status: Received by [facility] Primary Care Physician: Fabricio Lemos MD [Primary Care Provider] - Please follow up with your Primary Care Physician in: In 2 weeks Please Follow Up With: Tobias Gonsalves MD When: covid 19 with acute hypoxic resp failure in 2 weeks Medical Necessity - Tobacco Use Smoking Status: Former smoker Tobacco Use: Cigarettes Meaningful Use Info Meaningful Use Diagnoses (Choose all that apply): None applicable Inpatient E&M: 29357 [facility]
--- NOTE | 2020-08-17 12:56 | PN_ITS ---
Patient Problems: Active and Suspected Problems (Last Reviewed 07/16/20 @ 23:[address] Richard Gaona MD) COVID-19 (Acute) Hypoxia (Acute) Hypokalemia (Acute) Respiratory insufficiency (Acute) Subjective: Patient was doing well this morning. Patient has been able to be weaned to 6 L nasal cannula. Patient is not reporting any chest pain, abdominal pain, nausea or vomiting. - Physical Exam Vitals/I&O's: Vital Signs Temp Pulse Resp BP Pulse Ox 36.4 C L 96 18 109/66 94 08/17/20 09:27 08/17/20 09:27 08/17/20 09:27 08/17/20 09:27 08/17/20 09:27 Oxygen Flow Rate (L/min) 6 Oxygen Delivery Method Nasal Cannula Weight: 72.4 kg Body Mass Index (BMI) 28.9 Intake and Output for Last 24 Hours 08/15/20 08/16/20 08/17/20 23:59 23:59 23:59 Intake Total 1424 / 1664 240 / 240 Output Total 1950 / 2500 1775 / 2775 1200 / 1200 Balance -526 / -836 -1535 / -2535 -1200 / -1200 General: Alert, Oriented x3, Cooperative, No apparent distress, - - No conversational dyspnea HEENT: Atraumatic, PERRLA, EOMI, Normocephalic Oral: Moist Mucosa, No Gingival or Mucosal Lesions/ Ulcerations Neck: Supple, No JVD, No Nodes, Trachea Midline Lungs: No rhonchi, No wheeze, No rales, Diminished Cardiovascular: Regular rate, Regular Rhythm, Normal S1, Normal S2, No murmurs, No rub noted, No Gallop Abdomen: Bowel Sounds Present, Soft, Non Tender, Non-Distended Extremities: No clubbing, No cyanosis, Edema Skin: No rashes, No breakdown Musculoskeletal: No Tenderness to Palpation of Joints or Extremities Lymphatic: No Cervical, Supraclavicular, or Inguinal Adenopathy Neurological: Cranial nerves II-XII grossly intact, Neuro grossly intact, Motor Exam 5/5 strength throughout Psych/Mental Status: Alert and oriented to time, place, person, mood and affect Laboratory Results 08/14/20 05:00: Diff Path Review Reviewed 08/17/20 07:12: Sodium 139, Potassium 3.3 L, Chloride 104, Carbon Dioxide 27.0, Anion Gap 8, BUN 23 H, Creatinine 0.83, Estim Creat Clear Calc 58.35, Est GFR (MDRD) Af Amer 88, Est GFR (MDRD) Non-Af 73, BUN/Creatinine Ratio 27.6 H, Glucose 121 H, Calcium 9.0 Current Medications Acetaminophen (Acetaminophen 325 Mg Tablet) 650 mg PO Q6H PRN PRN PRN Reason: Pain Score 1-10/Temp > 100.7 F Hydrocodone Bitart/Acetaminophen (Hydrocodone Bitartrate/Apap 5/325 Tablet) 1 tablet PO Q4H PRN PRN PRN Reason: Pain Score 6-10 Last Admin: 08/17/20 08:08 Dose: 1 tablet Documented by: Albuterol Sulfate (Albuterol 2.5 Mg/3 Ml Vial.Neb.) 2.5 mg INHALATION Q2H PRN PRN PRN Reason: Dyspnea, wheezing Apixaban (Apixaban 5 Mg Tablet) 5 mg PO BID [facility] Last Admin: 08/17/20 09:52 Dose: 5 mg Documented by: Calamine/Phenol (Menthol/Lanolin/Calamine/Znox 113 Gm Tube) 1 applic TOPICAL TID@1000,1700,2200 [facility]; Protocol Last Admin: 08/17/20 09:51 Dose: 1 applicatio Documented by: Famotidine (Famotidine 20 Mg Tablet) 20 mg PO BID [facility] Last Admin: 08/17/20 09:52 Dose: 20 mg Documented by: Furosemide (Furosemide 20 Mg/2 Ml Vial) 20 mg IV BID@1000,1700 [facility] Last Admin: 08/17/20 09:52 Dose: 20 mg Documented by: Sodium Chloride () 250 mls @ 15 mls/hr IV .[id number] PRN PRN Reason: Saline Flush Last Infusion: 08/14/20 19:20 Dose: Infused Documented by: Sodium Chloride () 250 mls @ 15 mls/hr IV .[id number] PRN PRN Reason: Additional IVPB Infusion Levothyroxine Sodium (Levothyroxine 25 Mcg Tablet) 25 mcg PO DAILY [facility] Last Admin: 08/17/20 09:52 Dose: 25 mcg Documented by: Metoclopramide HCl (Metoclopramide 5 Mg Tablet) 5 mg PO BIDAC [facility] Last Admin: 08/17/20 08:08 Dose: 5 mg Documented by: Ondansetron HCl (Ondansetron 4 Mg/2 Ml Vial) 4 mg IV Q6H PRN PRN PRN Reason: NAUSEA/VOMITING Last Admin: 08/11/20 20:09 Dose: 4 mg Documented by: Potassium Chloride (Potassium Chloride 20 Meq Tablet) 40 meq PO DAILYCM [facility] Stop: 08/19/20 08:09 Last Admin: 08/17/20 09:24 Dose: 40 meq Documented by: Sodium Chloride (0.9% Saline Lock 10 Ml Syringe) 10 - 40 ml IV UD PRN PRN Reason: SALINE FLUSH Last Admin: 08/17/20 09:53 Dose: 10 ml Documented by: Sodium Chloride (Sodium Chloride 0.65% 1 [place].Btl) 1 spray NASAL 4X/DAY PRN PRN PRN Reason: NASAL DRYNESS Last Admin: 08/15/20 17:53 Dose: 1 spray Documented by: Medical Necessity - Tobacco Use Smoking Status: Former smoker Tobacco Use: Cigarettes Assessment/Plan All Active Problems (Last Reviewed 07/16/20 @ 23:[address] Richard Gaona MD) COVID-19 (Acute) Hypoxia (Acute) Hypokalemia (Acute) Respiratory insufficiency (Acute) RECOMMENDATIONS: 1. Advance diet per speech recommendations 2. Continue nasal cannula oxygen. Wean oxygen as tolerated 3. Continue diuretics as renal function allows 4. Completed meropenem and Decadron dosing 5. Continue Eliquis for anticoagulation 6. Follow-up in pulmonary office 4 to 6 weeks after discharge IMPRESSIONS: 1. Acute hypoxemic respiratory failure secondary to COVID-19 pneumonia/pulmonary emboli Patient has significantly improved from a respiratory standpoint. The patient has already completed a treatment course of remdesivir and Decadron. She also received convalescent plasma. CTA chest obtained during this hospitalization did reveal small upper lobe pulmonary emboli. Patient has been weaned to nasal cannula oxygen and tolerating well. Likely okay to evaluate for snf facility for discharge planning. Continue to encourage incentiv e spirometer and diuresis as renal function tolerates. Anticipate 3 to 6 months of anticoagulation 2. Distributive shock Resolved. The patient did develop hemodynamic instability as a consequence of sedative medication use, requiring vasopressor initiation initially. Continue to monitor blood pressure closely. 3. Acute kidney injury Resolved. Suspect likely secondary to ischemic ATN in the setting of #1, 2 and possible postobstructive pathology given clogged Gr. Plan to continue current supportive measures, including vasopressor support to maintain hemodynamic stability. Continue to monitor urine output. No current indication for renal replacement therapy. Continue diuretic challenges as patient tolerates. 4. Advanced age/anxiety/hypothyroidism/hypertension/GERD/metabolic encephalopathy Complicates care, management, recovery and prognosis. Continue current supportive measures. Continue delirium measures. Patient may improve after discontinuation of Decadron. Continue to treat chronic back pain Inpatient E&M: 12677 Subs Hosp L2
--- NOTE | 2020-08-17 13:18 | CASEMGMT ---
Social Work Note Pt is discharging to [facility] today. JUN faxed completed discharge paperwork to [facility] including transfer to extended care facility, signed medication list, any scripts, COVID screening tool, HENS. Original in SNF folder and copy on pt's chart. JUN completed convalescent 7000 in HENS. Original in SNF folder and copy on pt's chart. JUN spoke with RN regarding transportation, pt is able to sit up but unable to regulate own oxygen. JUN accessed trip assistance and arranged transportation via cot for 2:00pm. Transportation form completed and placed on SNF folder and copy on pt's chart. JUN placed a call to pt's room and updated pt that she will be discharged to [facility] today. Pt states understanding, agreeable to discharge to [facility]. SW asked TUBULAR RIVETER to update pt on discharge time, TUBULAR RIVETER states will do so. RN updated on transportation time. JUN placed a call to pt's daughter Yenifer and updated her on discharge and transportation time to [facility]. Yenifer states understanding. JUN placed a call to Yenifer at [facility] and updated her on transportation time. Plan: Discharge to [facility] skilled today with [facility] transporting pt via cot at 2:00pm Carlie URIBE, LABOR OPERATOR
[2020-08-17 13:28] VITALS: BP 127/81; PULSE 61; RESP 18; TEMP 36.6; O2SAT 96
--- NOTE | 2020-08-17 13:57 | NURSING ---
per spoke with pt step daughter Yenifer regarding pt insistant her purse is here- Yenifer states a family member has her purse and gave it to pt spouse.
== END 2020-08-17 14:35 | disposition skilled nursing facility (03) | DRG 207 ==
LOC: ED 20:14 → PCU 07-17 00:16 → ICU 08-02 01:10 → MS2 08-14 19:12
PROVIDERS: Family Medicine; Internal Medicine; Internal Medicine Cardiovascular Disease; Internal Medicine Critical Care Medicine; Internal Medicine Infectious Disease; Student in an Organized Health Care Education/Training Program; Admitting Provider Hospitalist; Emergency Provider Emergency Medicine; PCP Family Medicine; Visit Provider Internal Medicine
DX: U07.1 COVID-19 (principal); J12.89 Other viral pneumonia; J96.01 Acute respiratory failure with hypoxia; I26.99 Other pulmonary embolism without acute cor pulmonale; A41.89 Other specified sepsis; R65.21 Severe sepsis with septic shock; G93.41 Metabolic encephalopathy; R57.8 Other shock; N17.9 Acute kidney failure, unspecified; J44.0 Chronic obstructive pulmonary disease with (acute) lower respiratory infection; E44.1 Mild protein-calorie malnutrition; B37.0 Candidal stomatitis; I12.9 Hypertensive chronic kidney disease with stage 1 through stage 4 chronic kidney disease, or unspecified chronic kidney disease; N18.30 Chronic kidney disease, stage 3 unspecified; I44.0 Atrioventricular block, first degree; E87.6 Hypokalemia; Z66 Do not resuscitate; R13.10 Dysphagia, unspecified; I95.1 Orthostatic hypotension; E86.0 Dehydration; E03.9 Hypothyroidism, unspecified; E83.42 Hypomagnesemia; R00.1 Bradycardia, unspecified; A08.4 Viral intestinal infection, unspecified; E87.70 Fluid overload, unspecified; F41.9 Anxiety disorder, unspecified; M54.9 Dorsalgia, unspecified; G89.29 Other chronic pain; T83.091A Other mechanical complication of indwelling urethral catheter, initial encounter; Y73.8 Miscellaneous gastroenterology and urology devices associated with adverse incidents, not elsewhere classified; Z79.01 Long term (current) use of anticoagulants; Z79.890 Hormone replacement therapy; Z79.899 Other long term (current) drug therapy; Z87.891 Personal history of nicotine dependence; Z23 Encounter for immunization
CPT/HCPCS: 31720; 36415; 36600; 71045; 71275; 80048; 80053; 80076; 80202; 81001; 82550; 82803; 82962; 83605; 83690; 83735; 83880; 84075; 84100; 84132; 84145; 84443; 84478; 84484; 85025; 85027; 85379; 85610; 86900; 86901; 87040; 87070; 87205; 87493; 87506; 87635; 92526; 92610; 93005; 94002; 94003; 94660; 94762; 97110; 97116; 97162; 97166; 97530; 97535; 97802; 97803; 99285; C9803; G0008; J2185; J7030; J7040; J7050; Q9967; 90686; A4216; C1751; J1940; J2405; J3010; J3490; U0003

== ENCOUNTER → 2020-11-08 10:18 | Outpatient (CLI) | payer MEDICARE, SELFPAY ==
[2020-08-06 10:10] VITALS: BMI 28.9
--- NOTE | 2020-11-08 13:28 | PFT ---
INTRODUCTION: The patient is a 65-year-old female that presents for pulmonary function studies secondary to a diagnosis of COVID-19. Respiratory therapy reports good patient effort. Bronchodilators were used during testing. INTERPRETATION: Forced expiration spirometry demonstrates no evidence of a large airways obstructive ventilatory defect. There was no significant response to aerosolized bronchodilators. Spirograms are of good quality and plateau normally. Body plethysmography was performed and reveals a decreased TLC to 3.65 L, 75% of predicted, indicative of a mild restrictive ventilatory impairment. Diffusing capacity by single breath CO is disproportionately reduced at 39% of predicted. IMPRESSION: Mild restrictive ventilatory impairment with disproportionate reduction in diffusing capacity.
== END ==
PROVIDERS: PCP Family Medicine; Referring Provider Nurse Practitioner Acute Care; Visit Provider Nurse Practitioner Acute Care
DX: U07.1 COVID-19 (principal)
CPT/HCPCS: 94060; 94726; 94729

== ENCOUNTER → 2020-11-11 12:16 | Outpatient (CLI) | payer MEDICARE, SELFPAY ==
[2020-08-06 10:10] VITALS: BMI 28.9
[2020-11-11 12:47] VITALS: PULSE 73; PULSE 75; PULSE 79; PULSE 80; PULSE 81; PULSE 85; O2SAT 86; O2SAT 88; O2SAT 89; O2SAT 90; O2SAT 91; O2SAT 93; O2SAT 94
--- NOTE | 2020-11-12 10:31 | WT_ITS ---
PSN 6 Minute Walk Test - 6 Minute Walk Test 6 Minute Walk Test: 6 Minute Walk Test PSN:6-Minute Walk Test Start: 11/11/20 12:46 Freq: Status: Active Protocol: [id number] Document 11/11/20 12:47 [facility] (Rec: 11/11/20 12:56 [facility] [id number]) 6 Minute Walk Test Date Performed 11/11/20 Time Performed 12:30 Height 5 ft 4 in Weight: 172 lb Weight in Pounds 172.[address]: Roxann Gomez [employer] Assistive device used: None Pre-test Oxygen Delivery Method Room Air Pulse Ox (%) 93 Pulse Rate (60-100 beats/min) 75 Dyspnea Seamus Scale (0-10) 0 1st minute Oxygen Delivery Method Room Air Pulse Ox (%) 88 Pulse Rate (60-100 beats/min) 79 Dyspnea Seamus Scale (0-10) 0 Number of Rests Taken 0 2nd minute Oxygen Delivery Method Room Air Pulse Ox (%) 86 Pulse Rate (60-100 beats/min) 80 Dyspnea Seamus Scale (0-10) 0 Number of Rests Taken 1 3rd minute Oxygen Flow Rate (L/min) (L/min) 2 Oxygen Delivery Method Nasal Cannula Pulse Ox (%) 89 Pulse Rate (60-100 beats/min) 81 Dyspnea Seamus Scale (0-10) 0 Number of Rests Taken 0 4th minute Oxygen Flow Rate (L/min) (L/min) 2 Oxygen Delivery Method Nasal Cannula Pulse Ox (%) 93 Pulse Rate (60-100 beats/min) 79 Dyspnea Seamus Scale (0-10) 0 Number of Rests Taken 0 5th minute Oxygen Flow Rate (L/min) (L/min) 2 Oxygen Delivery Method Nasal Cannula Pulse Ox (%) 90 Pulse Rate (60-100 beats/min) 80 Dyspnea Seamus Scale (0-10) 0 Number of Rests Taken 0 6th minute Oxygen Flow Rate (L/min) (L/min) 2 Oxygen Delivery Method Nasal Cannula Pulse Ox (%) 91 Pulse Rate (60-100 beats/min) 85 Dyspnea Seamus Scale (0-10) 0 Number of Rests Taken 0 Post-test Oxygen Flow Rate (L/min) (L/min) 2 Oxygen Delivery Method Nasal Cannula Pulse Ox (%) 94 Pulse Rate (60-100 beats/min) 73 Dyspnea Seamus Scale (0-10) 0 Full Laps Walked 7 Partial Lap, Number of Tiles Walked 43 Total Distance Walked (ft) 456 - Interpretation Interpretation: The patient ambulated 456 feet over the course of 6 minutes beginning on room air without assistive devices or breaks. Pretesting oxygen saturation was noted to be 93% on room air. With ambulation, the patient desaturated to 86%. 2 L/min of supplemental oxygen was applied, and the patient was able to complete the remainder of the test while maintaining appropriate oxygen saturations. - Recommendations Recommendations: 2 L/min of supplemental oxygen should be utilized with exertion.
== END ==
PROVIDERS: PCP Family Medicine; Referring Provider Nurse Practitioner Acute Care; Visit Provider Nurse Practitioner Acute Care
DX: U07.1 COVID-19 (principal)
CPT/HCPCS: 94618

== ENCOUNTER → 2021-02-07 12:51 | Outpatient (CLI) | payer MEDICARE, SELFPAY ==
[2021-01-31 06:55] VITALS: BMI 32.2
--- NOTE | 2021-02-07 12:53 | ECHOD_ITS ---
Reason For Study: SOB Procedure This was a 2D Doppler, Color Flow transthoracic echocardiogram. Exam performed in department. Left Ventricle Normal LV size. Left ventricular systolic function is normal. The estimated ejection fraction is 60 %. Stage 1 diastolic dysfunction. No regional wall motion abnormalities noted. Mitral Valve Normal mitral valve. Trivial mitral valve insufficiency. Tricuspid Valve Normal tricuspid valve. Mild (1+) tricuspid valve insufficiency. Pulmonary artery systolic pressure is 30 mmHg. Aortic Valve Normal aortic valve. Trisinus/trileaflet aortic valve. Pulmonic Valve Normal pulmonic valve. Great Vessels Normal aortic root. The pulmonary artery is normal size. Normal inferior vena cava. Pericardium/Pleural No pericardial effusion. Medication 22 gauge I.V. with prn adaptor inserted into right arm. Performed a rapid injection of agitated mix of 9 cc saline and 1cc air to assess for atrial septal defect. MMode/2D Measurements & Calculations LVIDd: 3.9 cm IVSd: 1.2 cm Ao root diam: 3.2 cm LVIDs: 2.2 cm LVPWd: 0.92 cm RVDd: 3.4 cm FS: 43.0 % LAV(MOD-bp): 44.5 ml LVAd ap4: 31.8 cm2 LVAd ap2: 27.1 cm2 LAV(MOD-bp) Indexed: 24.0 ml/m2 LVLd ap4: 8.0 cm LVLd ap2: 7.9 cm LAV(MOD-sp2): 51.4 ml EDV(MOD-sp4): 102.9 ml EDV(MOD-sp2): 80.0 ml LAV(MOD-sp4): 35.7 ml EDV(sp4-el): 107.5 ml EDV(sp2-el): 78.6 ml LVAs ap4: 14.5 cm2 LVAs ap2: 14.0 cm2 LVLs ap4: 6.2 cm LVLs ap2: 6.2 cm ESV(MOD-sp4): 29.5 ml ESV(MOD-sp2): 26.8 ml ESV(sp4-el): 28.8 ml ESV(sp2-el): 26.9 ml EF(MOD-sp4): 71.3 % EF(MOD-sp2): 66.5 % EF(sp4-el): 73.2 % SV(MOD-sp4): 73.4 ml SV(MOD-sp2): 53.2 ml SV(sp4-el): 78.7 ml LA dimension(2D): 3.4 cm LA A4 area: 14.4 cm2 RA A4 area: 10.6 cm2 Doppler Measurements & Calculations MV E max can: 98.2 cm/sec Lat Peak E' Can: 9.9 cm/sec Med Peak E' Can: 7.7 cm/sec MV A max can: 148.9 cm/sec E/E' lat: 9.9 E/E' med: 12.8 MV E/A: 0.66 Ao V2 max: 175.2 cm/sec LV V1 max: 144.5 cm/sec PA V2 max: 140.4 cm/sec Ao max P.3 mmHg LV V1 max P.4 mmHg TR max can: 253.1 cm/sec TR max P.6 mmHg ECHO/Echo Complete Interpretation Summary Normal LV size. Left ventricular systolic function is normal. The estimated ejection fraction is 60 %. Stage 1 diastolic dysfunction. Pulmonary artery systolic pressure is 30 mmHg. Ordering Physician: Tobias Gonsalves Referring Physician: Nik Lemos Performed By: Tania Michael RDCS
--- NOTE | 2021-02-07 13:51 | CT_ITS ---
STUDY: CT CHEST WITHOUT CONTRAST REASON FOR EXAM: Female, 65 years old. Hypoxia following covid. Concern for fibrosis, -- HRCT images please RADIATION DOSAGE (If Supplied By Facility): CTDIvol = ( 15.69 ) mGy, DLP = ( 479.14 ) mGycm TECHNIQUE: Transaxial imaging was performed without the administration of intravenous contrast material. Multiplanar coronal and sagittal images were reformatted. Individualized dose optimization techniques were used for this CT. COMPARISON: None. FINDINGS: Hyperinflation. Increased interstitial markings throughout both lungs worse in the bases. This evidence of bronchiectasis in the anterior aspects of both right and left upper lobes. Findings are in keeping with the diffuse interstitial fibrosis. There is no demonstrated pleural abnormality. There are calcifications of the coronary arteries. Normal mediastinum. Normal hilar regions. Normal unenhanced pulmonary arteries. There is atherosclerotic calcification of the aortic arch with tortuosity and elongation of the aortic arch and descending thoracic aorta. There are multi-level degenerative changes of the thoracic spine. There is no demonstrated abnormality of the visualized upper abdomen. CT/Chest without Contrast IMPRESSION: Hyperinflation. Findings in keeping with interstitial fibrosis with subpleural blebs in the upper lobes. Electronically Signed: Jesus Solitario MD at 14:59 EDT , Service support ,
== END ==
PROVIDERS: PCP Family Medicine; Referring Provider Internal Medicine Critical Care Medicine; Visit Provider Internal Medicine Critical Care Medicine
DX: R06.02 Shortness of breath (principal); R09.02 Hypoxemia
CPT/HCPCS: 71250; 93306; J3490

== ENCOUNTER → 2021-05-26 20:00 | Outpatient (CLI) | payer MEDICARE, SELFPAY | PROVIDERS: PCP Family Medicine; Visit Provider Nurse Practitioner Acute Care | DX: G47.33 Obstructive sleep apnea (adult) (pediatric) (principal) | CPT/HCPCS: 95811 ==

== ENCOUNTER → 2021-06-15 11:39 | Outpatient (CLI) | payer MEDICARE, SELFPAY | PROVIDERS: PCP Family Medicine; Visit Provider Nurse Practitioner Acute Care | DX: Z46.89 Encounter for fitting and adjustment of other specified devices (principal) ==

== ENCOUNTER → 2021-08-15 10:33 | Outpatient (CLI) | payer MEDICARE, SELFPAY ==
--- NOTE | 2021-08-15 16:51 | PFTCOMP ---
COMPLETE PULMONARY FUNCTION TEST INTERPRETATION Brief HPI: Patient is a 65 year old female, currently under the care of Roxann Gomez, who presents to [facility] for complete pulmonary function tests secondary to diagnosis of dyspnea. Respiratory therapist reports good effort and reproducible results. Interpretation: Forced expiration spirometry shows no large airways obstructive ventilatory defect with an FEV1 of 96% predicted. There is no significant bronchodilator response by strict ATS criteria. Spirograms are of good quality and plateau normally. The respiratory flow volume loop shows a normal pattern. Lung volumes by body plethysmography show a slightly decreased total lung capacity at 3.92 L, 81% predicted. All other lung volumes are within normal limits. Diffusion capacity by carbon monoxide is decreased at 60% predicted. The airway resistance is slightly elevated. Compared to previous pulmonary function tests from 11/08/2020, there is been a significant improvement in FVC, FEV1 and DLCO by 31%, 26% and 60% respectively. Impression: Irreversible mild restrictive ventilatory defect with a disproportionate reduction in diffusion capacity, but some improvement compared to previous testing
== END ==
PROVIDERS: PCP Family Medicine; Referring Provider Nurse Practitioner Acute Care; Visit Provider Nurse Practitioner Acute Care
DX: R06.02 Shortness of breath (principal)
CPT/HCPCS: 94060; 94726; 94729

== ENCOUNTER 2021-10-06 11:00 | Outpatient (CLI) | payer MEDICARE, SELFPAY | END 2021-10-06 23:59 | disposition short-term general hospital (02) | LOC: SL 12:01 | PROVIDERS: PCP Family Medicine; Visit Provider Internal Medicine Critical Care Medicine | DX: G47.33 Obstructive sleep apnea (adult) (pediatric) (principal) | CPT/HCPCS: 98960; G0463 ==

== ENCOUNTER 2021-11-12 17:38 | Emergency (ER) | payer MEDICARE, SELFPAY ==
[2021-11-12 17:39] VITALS: BP 163/92; PULSE 89; RESP 16; TEMP 37.7; O2SAT 89; BMI 32.8
--- NOTE | 2021-11-12 18:16 | EKG12_ITS ---
Test Reason : DYSRHYTHMIA Blood Pressure : / mmHG Vent. Rate : 079 BPM Atrial Rate : 079 BPM P-R Int : 192 ms QRS Dur : 086 ms QT Int : 372 ms P-R-T Axes : 048 -16 018 degrees QTc Int : 426 ms Normal sinus rhythm Nonspecific ST abnormality Abnormal ECG Confirmed by UMBERTO ERNANDEZ, KIRT ([id number]), newspaper copy editor KRISTEN VALENTIN ([id number]) on 11/14/2021 12:24:33 PM Referred By: ELPIDIO Confirmed By:KIRT SHIPMAN MD
--- NOTE | 2021-11-12 18:18 | EDS_ITS ---
HPI History of Present Illness Chief Complaint: Shortness of Breath Informant: patient Onset/Context/Timing Onset: Days Context: gradual Current Severity: Mild Maximum Severity: Mild Worsened by: Coughing Relieved by: Oxygen Associated Symptoms cough, fever, subjective and green sputum Chest Pain: Positive for None Narrative Narrative: 36-year-old female history of Covid, hypertension and pulmonary fibrosis. She had COVID in June 2020 was on a ventilator has been on oxygen since that time. She is also had prior DVT and PEs. At the pulmonary emboli when she had COVID. States she has had a fever and cough the last several days worse since last night also diarrhea. States her cough is productive of dark phlegm. She denies any chest pain or hemoptysis. PE Risk Factors: Positive for Prior DVT or PE; Negative for Cancer, OCP + Smoking + > 35, Recent immobilization, Recent surgery and Recent travel Prior similar symptoms: Yes Recent Illness/Hospitalization: No PFSH PFSH Medical History Bronchiectasis Chronic respiratory failure with hypoxia COVID-19 History of staph infection HTN (hypertension) Hypoxia ARMANDO (obstructive sleep apnea) Pulmonary hypertension Smoking greater than 40 pack years Home Medications levothyroxine 25 mcg PO DAILY 11/03/17 [History Last Taken 07/16/20 06:00] gabapentin 400 mg PO TID 07/16/20 [History Last Taken 07/16/20 14:30] potassium citrate 40 meq PO DAILY 07/16/20 [History Last Taken 07/09/20] losartan 25 mg PO DAILY #0 08/17/20 [Rx Last Taken 07/16/20 10:00] omeprazole 40 mg PO DAILY #0 08/17/20 [Rx Last Taken 07/16/20 18:00] Disability Placard #1 ea 09/15/20 [Rx Last Taken Unknown] albuterol sulfate 2.5 mg INHALATION Q4H PRN #180 ml 09/15/20 [Rx Last Taken Unknown] oxycodone-acetaminophen 5 mg-325 mg tablet 1 tab PO Q8H PRN 09/15/20 [History Last Taken Unknown] cholecalciferol (vitamin D3) 125 mcg (5,000 unit) capsule 125 mcg PO DAILY 05/17/21 [History Last Taken Unknown] Allergy/AdvReac Type Severity Reaction Status Date / Time DAVID Inhibitors Allergy Rash Verified 11/12/21 17:38 codeine Allergy Vomiting Verified 11/12/21 17:38 walnut Allergy Food Verified 11/12/21 17:38 Allergy prednisone AdvReac Other Verified 11/12/21 17:38 [id number] Reductase AdvReac cramps Verified 11/12/21 17:38 Inhibitor [[id number]-[id number]-Mqb Reductase Inhibitor] Family History Mother Cancer Hx Lung CA. Father Cancer Hx Lung CA. Surgical History History of appendectomy History of back surgery History of breast biopsy History of History of cholecystectomy History of eye surgery History of tonsillectomy History of tubal ligation Social History household members: spouse Smoking Status: Former smoker quit date: 08/17/16 Tobacco: How many years used: 45 ROS ROS ED ROS Narrative Cough, subjective fever and diarrhea. Review of Systems ROS Unobtainable: Denies due to encephalopathy Constitutional Constitutional ED: Reports fever(s) Eyes Eyes: Denies change in vision ENT ENT ED: Denies ear pain Cardiovascular Cardiovascular: Denies chest pain Respiratory/Chest Respiratory/Chest: Reports cough, dyspnea and sputum Gastrointestinal Gastrointestinal: Reports diarrhea; Denies abdominal pain, nausea or vomiting Genitourinary Genitourinary ED: Denies dysuria Musculoskeletal Musculoskeletal: Denies myalgias Integumentary Denies rash Neurologic Neurologic: Denies headache(s) Psychiatric Psychiatric: Denies depression Endocrine Endocrinology: Denies polyuria Hematologic/Lymphatic Hematologic/Lymphatic: Denies easy bruising Allergic/Immunologic Allergic/Immunologic ED: Denies urticaria EXAM Physical Exam Narrative Exam Narrative: Six 6-year-old female no acute distress. Wearing portable oxygen. Vital signs stable temperature 99.9. Pulse ox 89% on 1 L. She is mildly hypoxic on oxygen. HEENT exam unremarkable. Moist remembers. Neck nontender. No JVD. No lymphadenopathy. Lungs few scattered respiratory wheezes. No rales or rhonchi. Heart regular rhythm rate about 90 no murmur. Abdomen soft nontender normal bowel sounds no peritoneal signs. Moving all 4 extremities. Calves nontender no edema nor cords. Neurologically she is awake alert Const Vital Signs: 11/12/21 17:39 11/12/21 18:33 11/12/21 18:54 Temperature 99.9 F H Temperature Source Oral Pulse Rate 89 92 83 Respiratory Rate 16 16 18 Respiratory Effort Respiratory Pattern Normal Blood Pressure 163/92 H 147/77 H Blood Pressure Mean 115 100 Pulse Ox 89 94 Oxygen Delivery Method Nasal Cannula Room Air Oxygen Flow Rate (L/min) 1 11/12/21 18:55 Temperature Temperature Source Pulse Rate Respiratory Rate Respiratory Effort Short of Breath Respiratory Pattern Blood Pressure Blood Pressure Mean Pulse Ox Oxygen Delivery Method Room Air Oxygen Flow Rate (L/min) Positive well nourished, well developed and obese; Negative for cachectic, contractures or unkempt General Appearance ED: well developed and NAD; Negative for unkempt, cachectic, contractures or pallor Nutritional Appearance: obese; Negative for cachectic HEENT Reports moist mucous membranes atraumatic; Negative for trauma or tenderness Eyes PERRL and EOMs intact bilaterally Neck no lymphadenopathy, supple, no meningeal signs and no JVD General: Negative for tenderness Resp normal respiratory effort and No clear to auscultation bilaterally Auscultation: wheezes; Negative for rales or rhonchi Cardio regular rate, regular rhythm, S1 normal heart sound, S2 normal heart sound and no murmurs GI non-tender, non-distended and no masses Auscultation: normoactive bowel sounds Palpation: soft; Negative for tender, guarding or rebound tenderness present Back/Spine no CVA tenderness and normal to inspection General Back: Negative for CVA tenderness or tenderness Extremity normal to inspection General Extremety ED: Negative for edema or tenderness General Extremity: Negative for edema Neuro oriented x3 Sensorium / Orientation: alert, oriented to person and oriented to place; Negative for oriented to time, orientation impaired, confused or lethargic Motor Exam: strength 5/5 throughout Psych mental status grossly normal Appearance: Negative for unkempt Thought Process: normal thought process Skin no wounds General Skin Exam: Negative for jaundice or pallor Lesions: no lesions Rashes: no rashes MDM MDM MDM Narrative Medical decision making narrative: 66-year-old female complaining of shortness of breath and cough. She has a history of bronchiectasis prior smoker and chronically on oxygen after having Covid in 2020. Should be worked up from both a cardiac and respiratory status. She will be given p.o. prednisone and a DuoNeb aerosol for her wheezing. Repeat exam patient is doing well at 7:35 PM. Her wheezing is resolved after the aerosol treatment. I discussed with the patient steroid treatment at home she had an issue with prednisone in the past and would prefer not to. 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 She will be discharged home. Follow-up with her primary care provider. Lab Data Attestation: I reviewed the patient's lab results. Lab results narrative: CBC shows a white count of 6.5. H&H of 14 and 42. Electrolytes show a gap of 8 a normal BUN and creatinine of 1401. Glucose of 135. Labs: Laboratory Results - last 24 hr 11/12/21 11/12/21 18:45 18:45 WBC 6.5 RBC 4.93 Hgb 14.6 Hct 42.4 MCV 86.0 MCH 29.6 MCHC 34.4 RDW Std Deviation 42.1 RDW Coeff of Brittanie 13.4 Plt Count 264 MPV 10.2 Immature Gran % (Auto) 0.300 Neut % (Auto) 74.4 H Lymph % (Auto) 8.8 L Mills % (Auto) 15.4 H Eos % (Auto) 0.5 Baso % (Auto) 0.6 Absolute Neuts (auto) 4.8 Absolute Lymphs (auto) 0.57 L Nucleated RBC % 0 Sodium 140 Potassium 3.7 Chloride 108 H Carbon Dioxide 24.0 Anion Gap 8 BUN 14 Creatinine 1.05 H Estim Creat Clear Calc 43.01 Est GFR (MDRD) Af Amer 67 Est GFR (MDRD) Non-Af 56 L BUN/Creatinine Ratio 13.3 Glucose 135 H Calcium 9.5 Radiography Chest X-Ray - ED: 1 View, Read by ED Physician, Heart, Lungs, Mediastinum, Bony Structures, No Acute Disease and Chronic Changes Diagnostic Testing: Clinical Impression(s) from Imaging Studies Chest X-Ray 11/12/21 19:00 IMPRESSION: No airspace consolidation or pleural effusion. Residual scattered parenchymal fibrosis. Electronically Signed: Jorje Aggarwal MD ([place]) at 19:30 EST , Chest x-ray, portable, single view interpreted myself shows no acute abnormality. Chronic changes. Radiologist interpreted film also and agrees. Rhythm Strip Rhythm Strip: Sinus Rhythm Rate: 79 EKG Initial EKG: Attestation: I personally reviewed and interpreted this EKG as follows: Interpretation: Sinus Rhythm and No Acute Injury Pattern Comments: Normal sinus rhythm rate of 79 no acute signs of VA or ischemia. Discharge Plan Triage Chief Complaint: Shortness of Breath ED Provider: Alex Mercado Dx/Rx/DC Orders Clinical Impression: Bronchitis Instructions: ED Bronchitis with Wheezing (Adult), Pulmonary Fibrosis Prescriptions: No Action oxycodone-acetaminophen 5-325 mg tablet 1 tab PO Q8H PRNRF: 0 (DME) Disability Placard See Rx Instructions .Route .MEDSUPPLY Qty: 1 RF: 0 albuterol sulfate 2.5 mg /3 mL (0.083 %) solution for nebulization 2.5 mg INHALATION Q4H PRN (Reason: Sob &/Or Wheezing) Qty: 180 RF: 3 cholecalciferol (vitamin D3) 125 mcg (5,000 unit) capsule 125 mcg PO DAILY RF: 0 levothyroxine 25 MCG tablet 25 mcg PO DAILY RF: 0 potassium citrate 10 MEQ tablet extended release 40 meq PO DAILY RF: 0 gabapentin 400 MG capsule 400 mg PO TID RF: 0 omeprazole 40 MG capsule,delayed release(DR/EC) 40 mg PO DAILY Qty: 0 RF: 0 losartan 100 MG tablet 25 mg PO DAILY Qty: 0 RF: 0 Primary Care Provider: Fabricio Lemos Referrals: Fabricio Lemos MD [Primary Care Provider] - 1 Week if not improving Activity Restrictions/Additional Instructions: Plenty of fluids and rest. Tylenol for fever. Follow-up with your doctor if not improving. Return if feeling a lot worse. Disposition Disposition: Home, Self Care
[2021-11-12 18:33] VITALS: PULSE 92; RESP 16
[2021-11-12] MEDS: Ipratropium/Albuterol Sulfate 3 ML AMPUL.NEB INHALATION (18:33)
[2021-11-12 18:51] LABS: Absolute Lymphocyte Count 0.57 X10^3/uL (0.83-4.51); Absolute Neutrophil Count 4.8 X10^3/uL (2.0-7.7); Basophil# 0.04 X10^3/uL; Basophil% 0.6 % (0-1); Eosinophil# 0.03 X10^3/uL; Eosinophils% 0.5 % (0-5); Hematocrit 42.4 % (37-47); Hemoglobin 14.6 g/dL (12.0-15.0); Lymphocyte # 0.57 X10^3/ul (0.83-4.51); Lymphocyte % 8.8 % (19-41); Mean Corp Hgb Conc 34.4 g/dL (32-36); Mean Corpuscular Hgb 29.6 pg (27.0-32.0); Mean Platelet Vol. 10.2 fl (6.2-12.0); Monocyte% 15.4 % (0-10); NRBC Flagged by Analyzer 0 % (0-5); Neutrophil # 4.83 X10^3/uL (2.7-7.7); Neutrophil % 74.4 % (47-70); POSITIVE DIFFERENTIAL YES; Platelet Count 264 K/mm3 (150-450); RBC Distribution Width CV 13.4 % (11.6-14.6); RBC Distribution Width SD 42.1 fl (35.1-43.9); Red Blood Count 4.93 M/mm3 (4.2-5.4); White Blood Count 6.5 K/mm3 (4.4-11.0)
[2021-11-12 18:52] LABS: Differential Indicated SCAN CRITERIA MET
[2021-11-12 18:54] VITALS: BP 147/77; PULSE 83; RESP 18; O2SAT 94; O2SAT 96
[2021-11-12 18:55] VITALS: O2SAT 94
--- NOTE | 2021-11-12 19:00 | RAD_ITS ---
STUDY: X-RAY CHEST REASON FOR EXAM: Female, 66 years old. chest pain TECHNIQUE: AP COMPARISON: 08/10/2020 FINDINGS: EKG leads project over the chest. There are interstitial fibrotic changes of the lungs. There is no demonstrated pleural abnormality. Normal size heart. Normal mediastinum and trell. Normal visualized pulmonary arteries. Normal visualized aortic arch and descending thoracic aorta. No acute bony process. There is no demonstrated abnormality of the visualized soft tissue structures of the upper abdomen. RAD/Chest 1 View (Portable) IMPRESSION: No airspace consolidation or pleural effusion. Residual scattered parenchymal fibrosis. Electronically Signed: Jorje Aggarwal MD ([place]) at 19:30 EST ,
[2021-11-12 19:04] LABS: Anion Gap 8 (5-15); BUN 14 mg/dL (7-18); BUN/Creat Ratio 13.3 RATIO (10-20); Calcium,Total 9.5 mg/dL (8.5-10.1); Chloride 108 mmol/L (98-107); Creatinine, Serum 1.05 mg/dL (0.55-1.02); EST Glomerular Filtration Rate 56 mL/min (>60); Est Glom Filt Rate - Afr Amer 67 mL/min (>60); Estimated Creatinine Clearance 43.01 ml/min; Glucose 135 mg/dL (74-106); Potassium 3.7 mmol/L (3.5-5.1); Sodium Level 140 mmol/L (136-145)
[2021-11-12] MEDS: HYDROcodone Bitartrate/Apap 5/325 Tablet PO (19:36)
[2021-11-12] MEDS: Ondansetron ODT 4 MG Tablet PO (19:36)
[2021-11-12 19:38] LABS: Platelet Estimate ADEQUATE (ADEQ); Red Cell Morphology NORM C+C NORMAL (NORM C&C)
[2021-11-12 20:00] VITALS: BP 144/77; PULSE 76; RESP 18; O2SAT 93
== END 2021-11-12 20:03 | disposition home or self-care (01) ==
PROVIDERS: Emergency Provider Emergency Medicine; PCP Family Medicine; Visit Provider Emergency Medicine
DX: J40 Bronchitis, not specified as acute or chronic (principal); J96.11 Chronic respiratory failure with hypoxia; I10 Essential (primary) hypertension; Z99.81 Dependence on supplemental oxygen; Z79.899 Other long term (current) drug therapy; Z86.16 Personal history of COVID-19; Z86.711 Personal history of pulmonary embolism; Z86.718 Personal history of other venous thrombosis and embolism; Z87.891 Personal history of nicotine dependence
CPT/HCPCS: 71045; 80048; 85025; 87426; 93005; 94640; 99284; A4216

== ENCOUNTER 2021-11-17 10:17 | Emergency (ER) | payer MEDICARE, SELFPAY ==
[2021-11-17 10:18] VITALS: BP 109/95; PULSE 63; RESP 20; TEMP 36.1; O2SAT 93; BMI 31.8
--- NOTE | 2021-11-17 10:45 | RAD_ITS ---
STUDY: X-RAY CHEST REASON FOR EXAM: Female, 66 years old. Cough TECHNIQUE: PA and lateral views of the chest. COMPARISON: Comparison is made with prior study dated 11/12/2021. FINDINGS: EKG electrodes are seen. Stable increased interstitial markings in both lungs more prominent in the right hemithorax suggesting scarring. I suspect superimposed infiltrate in the right lower lobe. There is no demonstrated pleural abnormality. Normal size heart. Normal mediastinum and trell. There is prominence of the pulmonary hilar arteries without peripheral pulmonary vascular congestion, suggesting pulmonary hypertension. Normal visualized aortic arch and descending thoracic aorta. There are degenerative changes of the visualized thoracic spine. Normal visualized ribs, clavicles, and shoulders. There is no demonstrated abnormality of the visualized soft tissue structures of the upper abdomen. RAD/Chest PA and Lateral IMPRESSION: I suspect new focal infiltrate in the right lower lobe superimposed on chronic interstitial scarring. Prominence of the central pulmonary arteries. Electronically Signed: Jesus Solitario MD at 12:45 EST ,
[2021-11-17 11:06] VITALS: PULSE 65; RESP 20
[2021-11-17] MEDS: Albuterol 2.5 MG/3 ML VIAL.NEB. INHALATION (11:06)
[2021-11-17 11:21] VITALS: BP 117/64; PULSE 64; RESP 15; O2SAT 94
[2021-11-17 11:58] VITALS: O2SAT 96
[2021-11-17 11:59] LABS: Absolute Lymphocyte Count 0.65 X10^3/uL (0.83-4.51); Basophil# 0.01 X10^3/uL; Basophil% 0.2 % (0-1); Eosinophil# 0.01 X10^3/uL; Eosinophils% 0.2 % (0-5); Hematocrit 40.5 % (37-47); Hemoglobin 13.5 g/dL (12.0-15.0); Lymphocyte # 0.65 X10^3/ul (0.83-4.51); Lymphocyte % 9.8 % (19-41); Mean Corp Hgb Conc 33.3 g/dL (32-36); Mean Corpuscular Hgb 28.7 pg (27.0-32.0); Mean Corpuscular Volume 86.2 fL (81-99); Mean Platelet Vol. 10.9 fl (6.2-12.0); Monocyte% 13.5 % (0-10); NRBC Flagged by Analyzer 0 % (0-5); Neutrophil # 5.02 X10^3/uL (2.7-7.7); Neutrophil % 75.4 % (47-70); Platelet Count 228 K/mm3 (150-450); RBC Distribution Width CV 13.4 % (11.6-14.6); RBC Distribution Width SD 42.7 fl (35.1-43.9); White Blood Count 6.7 K/mm3 (4.4-11.0)
[2021-11-17 12:04] LABS: Anion Gap 5 (5-15); BUN 18 mg/dL (7-18); BUN/Creat Ratio 17.5 RATIO (10-20); Calcium,Total 9.1 mg/dL (8.5-10.1); Chloride 103 mmol/L (98-107); Creatinine, Serum 1.03 mg/dL (0.55-1.02); EST Glomerular Filtration Rate 57 mL/min (>60); Est Glom Filt Rate - Afr Amer 69 mL/min (>60); Estimated Creatinine Clearance 43.84 ml/min; Glucose 98 mg/dL (74-106); Potassium 3.5 mmol/L (3.5-5.1); Sodium Level 135 mmol/L (136-145)
[2021-11-17 12:40] VITALS: BP 139/75; PULSE 82; RESP 14; O2SAT 96
--- NOTE | 2021-11-17 13:07 | EDS_ITS ---
HPI History of Present Illness Chief Complaint: Shortness of Breath Narrative Narrative: 66-year-old female presents with cough and shortness of breath that started on 11/13. She is also had fevers, myalgias, and diarrhea. She was seen here the next day and had blood work and a chest x-ray which were normal. Her Covid test was negative. After she went home she followed up with her primary care doctor and tested positive for influenza. She feels more short of breath which prompted her to come in. She does wear 1 L of O2 as needed and CPAP at night. PFSH PFSH Medical History Bronchiectasis Chronic respiratory failure with hypoxia COVID-19 History of staph infection HTN (hypertension) Hypoxia ARMANDO (obstructive sleep apnea) Pulmonary hypertension Smoking greater than 40 pack years Home Medications levothyroxine 25 mcg PO DAILY 11/03/17 [History Last Taken 07/16/20 06:00] gabapentin 400 mg PO TID 07/16/20 [History Last Taken 07/16/20 14:30] potassium citrate 40 meq PO DAILY 07/16/20 [History Last Taken 07/09/20] losartan 25 mg PO DAILY #0 08/17/20 [Rx Last Taken 07/16/20 10:00] omeprazole 40 mg PO DAILY #0 08/17/20 [Rx Last Taken 07/16/20 18:00] Disability Placard #1 ea 09/15/20 [Rx Last Taken Unknown] albuterol sulfate 2.5 mg INHALATION Q4H PRN #180 ml 09/15/20 [Rx Last Taken Unknown] oxycodone-acetaminophen 5 mg-325 mg tablet 1 tab PO Q8H PRN 09/15/20 [History Last Taken Unknown] cholecalciferol (vitamin D3) 125 mcg (5,000 unit) capsule 125 mcg PO DAILY 05/17/21 [History Last Taken Unknown] amoxicillin-pot clavulanate 875 mg PO Q12H 7 Days #14 tablet 11/17/21 [Rx Last Taken Unknown] doxycycline hyclate 100 mg PO BID 10 Days #20 tab 11/17/21 [Rx Last Taken Unknown] Allergy/AdvReac Type Severity Reaction Status Date / Time DAVID Inhibitors Allergy Rash Verified 11/17/21 10:18 codeine Allergy Vomiting Verified 11/17/21 10:18 walnut Allergy Food Verified 11/17/21 10:18 Allergy prednisone AdvReac Other Verified 11/17/21 10:18 Purwxww-QOO-TuS Reductase AdvReac cramps Verified 11/17/21 10:18 Inhibitor [Didvbhy-Kwp-Pfj Reductase Inhibitor] Family History Mother Cancer Hx Lung CA. Father Cancer Hx Lung CA. Surgical History History of appendectomy History of back surgery History of breast biopsy History of History of cholecystectomy History of eye surgery History of tonsillectomy History of tubal ligation Social History household members: spouse Smoking Status: Former smoker quit date: 08/17/16 Tobacco: How many years used: 45 ROS ROS ED ROS Narrative Constitutional: Positive for fever, chills, malaise. Eyes: Negative for visual change. ENT: Negative for sore throat, ear pain, rhinorrhea. CVS: Negative for palpitations, chest pain, syncope. Respiratory: Positive for shortness of breath, cough. Negative for orthopnea. GI: Positive for diarrhea. Negative for abdominal pain, nausea, vomiting, constipation, melena, hematochezia. : Negative for dysuria, hematuria or frequency. Neuro: Negative for headache, motor/sensory dysfunction. Skin: Negative for rash, abscess, or wound. Musc: Negative for joint pain, swelling, trauma. Heme: Negative for easy bruising, bleeding, lymphadenopathy. EXAM Physical Exam Narrative Exam Narrative: CONST: Patient sitting in no acute distress. EYES: Normal inspection. ENT: Normal inspection, moist mucous membranes. NECK: Normal inspection. RESP: No respiratory distress, diffuse mild expiratory wheeze and bibasilar crackles CVS: Regular rate and rhythm, no murmur, no gallop. ABD: Soft and nontender, no guarding or rebound, nondistended, no hepatosplenomegaly. Back: Normal inspection. SKIN: Color normal, no rash, warm, dry, intact. EXTREMITIES: Normal appearance, no pedal edema. NEURO: Oriented x4. PSYCH: Normal affect. Const Vital Signs: 11/17/21 10:18 11/17/21 11:06 11/17/21 11:21 Temperature 96.9 F L Temperature Source Temporal Pulse Rate 63 65 64 Respiratory Rate 20 H 20 H 15 Respiratory Effort Short of Breath Respiratory Depth Normal Respiratory Pattern Tachypnea Normal Blood Pressure 109/95 H 117/64 Blood Pressure Mean 99 81 Pulse Ox 93 94 Oxygen Delivery Method Nasal Cannula Nasal Cannula Oxygen Flow Rate (L/min) 2 1 11/17/21 12:40 11/17/21 13:35 Temperature Temperature Source Pulse Rate 82 73 Respiratory Rate 14 18 Respiratory Effort Respiratory Depth Respiratory Pattern Blood Pressure 139/75 H 138/78 H Blood Pressure Mean 96 Pulse Ox 96 94 Oxygen Delivery Method Nasal Cannula Oxygen Flow Rate (L/min) 1 MDM MDM MDM Narrative Medical decision making narrative: Patient recently tested positive for influenza and presents with cough and shortness of breath. She appears ill but nontoxic. Afebrile and vital signs within normal limits. 94% on 1 L which is her baseline. On exam her heart is regular rate and rhythm, lungs have mild wheezing and crackles, abdomen soft and nontender. There is no lower extremity edema. Labs are unremarkable. Chest x-ray shows possible new right lower lobe infiltrate. Her ambulatory pulse ox on 1 L was normal and she is stable to go home. With new infiltrates she will be placed on antibiotics. I called her pharmacy and she is already taking Augmentin x5 days. I added two additional days and also prescribe doxycycline x10 days. She was counseled to return for new or worsening symptoms. Diagnoses 1. Influenza 2. Pneumonia, possible superimposed CAP Lab Data Labs: Laboratory Results - last 24 hr 11/17/21 11/17/21 11:10 11:10 WBC 6.7 RBC 4.70 Hgb 13.5 Hct 40.5 MCV 86.2 MCH 28.7 MCHC 33.3 RDW Std Deviation 42.7 RDW Coeff of Brittanie 13.4 Plt Count 228 MPV 10.9 Immature Gran % (Auto) 0.900 Neut % (Auto) 75.4 H Lymph % (Auto) 9.8 L [place] % (Auto) 13.5 H Eos % (Auto) 0.2 Baso % (Auto) 0.2 Absolute Neuts (auto) 5.0 Absolute Lymphs (auto) 0.65 L Nucleated RBC % 0 Sodium 135 L Potassium 3.5 Chloride 103 Carbon Dioxide 27.0 Anion Gap 5 BUN 18 Creatinine 1.03 H Estim Creat Clear Calc 43.84 Est GFR (MDRD) Af Amer 69 Est GFR (MDRD) Non-Af 57 L BUN/Creatinine Ratio 17.5 Glucose 98 Calcium 9.1 Radiography Diagnostic Testing: Clinical Impression(s) from Imaging Studies Chest X-Ray 11/17/21 10:45 IMPRESSION: I suspect new focal infiltrate in the right lower lobe superimposed on chronic interstitial scarring. Prominence of the central pulmonary arteries. Electronically Signed: Jesus Solitario MD at 12:45 EST , Discharge Plan Triage Chief Complaint: Shortness of Breath ED Provider: Yenifer Patten Dx/Rx/DC Orders Clinical Impression: Influenza, Pneumonia Instructions: ED Influenza (Adult), ED Pneumonia (Adult) Prescriptions: New doxycycline hyclate 100 mg tablet 100 mg PO BID 10 Days Qty: 20 RF: 0 amoxicillin-pot clavulanate [amoxicillin-pot clavulanate] 875 MG tablet 875 mg PO Q12H 7 Days Qty: 14 RF: 0 No Action oxycodone-acetaminophen 5-325 mg tablet 1 tab PO Q8H PRNRF: 0 (DME) Disability Placard See Rx Instructions .Route .MEDSUPPLY Qty: 1 RF: 0 albuterol sulfate 2.5 mg /3 mL (0.083 %) solution for nebulization 2.5 mg INHALATION Q4H PRN (Reason: Sob &/Or Wheezing) Qty: 180 RF: 3 cholecalciferol (vitamin D3) 125 mcg (5,000 unit) capsule 125 mcg PO DAILY RF: 0 levothyroxine 25 MCG tablet 25 mcg PO DAILY RF: 0 potassium citrate 10 MEQ tablet extended release 40 meq PO DAILY RF: 0 gabapentin 400 MG capsule 400 mg PO TID RF: 0 omeprazole 40 MG capsule,delayed release(DR/EC) 40 mg PO DAILY Qty: 0 RF: 0 losartan 100 MG tablet 25 mg PO DAILY Qty: 0 RF: 0 Primary Care Provider: Fabricio Lemos Referrals: Fabricio Lemos MD [Primary Care Provider] - Activity Restrictions/Additional Instructions: You have the flu. Your chest x-ray shows you also may be developing pneumonia so I prescribed 2 antibiotics, doxycycline and Augmentin. Please continue to rest, drink fluids, and take Tylenol as needed every 6 hours. Return to the ER for new or worsening symptoms. Disposition Disposition: Home, Self Care Discharge Date/Time: 11/17/21 13:57
[2021-11-17] MEDS: Ketorolac 15 MG/ML Vial IV (13:16)
[2021-11-17 13:35] VITALS: BP 138/78; PULSE 73; RESP 18; O2SAT 94
== END 2021-11-17 13:57 | disposition home or self-care (01) ==
PROVIDERS: Emergency Provider Physician Assistant; PCP Family Medicine; Visit Provider Physician Assistant
DX: J11.1 Influenza due to unidentified influenza virus with other respiratory manifestations (principal); J96.11 Chronic respiratory failure with hypoxia; J18.9 Pneumonia, unspecified organism; I10 Essential (primary) hypertension; G47.33 Obstructive sleep apnea (adult) (pediatric); Z79.899 Other long term (current) drug therapy; Z86.16 Personal history of COVID-19; Z87.891 Personal history of nicotine dependence; Z80.1 Family history of malignant neoplasm of trachea, bronchus and lung
CPT/HCPCS: 71046; 80048; 85025; 94640; 96361; 96374; 99282; J7030; A4216

== ENCOUNTER → 2022-01-18 | Outpatient (CLI) | payer MEDICARE, SELFPAY ==
--- NOTE | 2022-01-18 13:16 | CT_ITS ---
STUDY: LOW DOSE CT LUNG CANCER SCREENING REASON FOR EXAM: Female, 66 years old. Smoker and gt; 40 pack years quit 2014 RADIATION DOSAGE (If Supplied By Facility): CTDIvol = ( 3.02 ) mGy, DLP = ( 97.79 ) mGycm TECHNIQUE: No contrast was administered. Low dose technique was utilized (average mAS-38 and kVp 120). 1.25 mm axial source images with a slice interval of 1.25-mm were reconstructed in lung windows. 2.5 mm axial source images with a slice interval of 2.5-mm were reconstructed in lung windows. 5.0 mm axial source images with a slice interval of 5.0-mm were reconstructed in soft tissue windows. COMPARISON: Comparison is made with prior study dated 02/07/2021. NODULES: No suspicious nodules are seen. Emphysema: 16 again, there is diffuse increased interstitial markings with areas of confluence involving both lungs and both upper and lower lobes. This is in keeping with diffuse interstitial pulmonary fibrosis. There is also evidence of a honeycombing and subpleural blebs. Endobronchial lesion: None Aorta: Atherosclerotic calcific plaques. CORONARY ARTERIES: Coronary artery calcification Heart: Unremarkable Pulmonary artery: Unremarkable Mediastinal nodes: Unremarkable Other chest and abdominal findings: CT/Low Dose CT Lung Screening IMPRESSION: Lung-RADS category 2 - Continue annual screening with LDCT in 12 months. IMPORTANT NOTES FOR USE: ACR Lung-RADS Version 1.1 Assessment Categories Release Date: 2018 Category: Coded 0-4 bases on nodule(s) with highest degree of suspicion. Negative screen is defined as categories 1 and 2; a positive screen is defined as categories 3 and 4. Category 3 and 4A nodules that are unchanged on interval CT should be coded as category 2, and individuals returned to screening in 12 months. Category 4X: Category 3 or 4 nodules with additional imaging findings that increase the suspicion of lung cancer, such as spiculation, GGN that doubles in size in 1 year, enlarged lymph notes, etc. Category Modifiers: S (significant finding unrelated to lung cancer) Electronically Signed: Jesus Solitario MD at 15:41 EDT ,
== END | disposition home or self-care (01) ==
LOC: CT 13:15
PROVIDERS: PCP Family Medicine; Referring Provider Nurse Practitioner Acute Care; Visit Provider Nurse Practitioner Acute Care
DX: Z12.2 Encounter for screening for malignant neoplasm of respiratory organs (principal); F17.210 Nicotine dependence, cigarettes, uncomplicated
CPT/HCPCS: 71271

== ENCOUNTER 2022-09-13 06:46 | Emergency (ER) | payer MEDICARE, SELFPAY ==
[2022-09-13 06:47] VITALS: BP 152/83; PULSE 74; RESP 16; TEMP 36.5; O2SAT 97; BMI 32.2
--- NOTE | 2022-09-13 07:13 | EX.ED.DYSGE1 ---
HPI History of Present Illness Chief Complaint: General Illness Informant: patient Onset/Context/Timing Onset: Weeks (2) Context: Gradual Onset Timing: Continuous Quality: cough, sob/wheezing Current Severity: Moderate Maximum Severity: Moderate Worsened by: nothing Relieved by: nothing, on Abx Associated Symptoms Associated Symptoms: severe diarrhea x 3d Narrative Narrative: Patient has been sick for about 2 weeks with respiratory illness, cough, initially sore throat and fevers, but those have been gone for over a week. Still coughing and short of breath wheezing. She was doing nebulizer treatments but since they stopped working she has not done any in days. She sees pulmonology ever since she had COVID and was diagnosed with long COVID another lung problems that she is unaware, bronchiectasis in the EMR and a CT this past year that showed some fibrosis. She saw Dr. Gonsalves her admitting manager during this illness, she has had no testing done but was put on antibiotics and states it is not helping her respiratory symptoms, and now she has diarrhea despite taking her probiotic and Imodium which are not helping, diarrhea is watery, nonbloody nonmelanotic more than 10 times per day, she presents at 7 AM and is already gone 4 times this morning she states. She has had no syncope or near syncope. No more fevers. Some nausea but no vomiting. Some periumbilical abdominal pain that feels like when I had an ulcer when asked about the quality of the pain. She states she is not eating that she does not know if it hurts to eat or not. PFSH PFSH Medical History Bronchiectasis Chronic respiratory failure with hypoxia COVID-19 History of staph infection HTN (hypertension) Hypoxia ARMANDO (obstructive sleep apnea) Pulmonary hypertension Smoking greater than 40 pack years Home Medications levothyroxine 25 mcg tablet 25 mcg PO DAILY thyroid 11/03/17 [History Last Taken 07/16/20 06:00] gabapentin 400 mg capsule 400 mg PO TID nerve pain 07/16/20 [History Last Taken 07/16/20 14:30] losartan 100 mg tablet 25 mg PO DAILY bp ##0 08/17/20 [Rx Last Taken 07/16/20 10:00] omeprazole 40 mg capsule,delayed release 40 mg PO DAILY gerd ##0 08/17/20 [Rx Last Taken 07/16/20 18:00] Disability Placard #1 ea 09/15/20 [Rx Last Taken Unknown] oxycodone-acetaminophen 5 mg-325 mg tablet 1 tab PO Q8H PRN Pain 09/15/20 [History Last Taken Unknown] cholecalciferol (vitamin D3) 125 mcg (5,000 unit) capsule 125 mcg PO DAILY 05/17/21 [History Last Taken Unknown] potassium citrate 10 mEq (1,080 mg) tablet,extended release 20 meq PO DAILY potassium 01/26/22 [History Last Taken Unknown] red yeast rice 600 mg tablet 600 mg PO DAILY 01/26/22 [History Last Taken Unknown] ipratropium 0.5 mg-albuterol 3 mg (2.5 mg base)/3 mL nebulization soln 3 ml inhalation Q4H PRN shortness of breath or wheezing #180 mL 05/09/22 [Rx Last Taken Unknown] Allergy/AdvReac Type Severity Reaction Status Date / Time DAVID Inhibitors Allergy Rash Verified 09/13/22 06:52 codeine Allergy Vomiting Verified 09/13/22 06:52 walnut Allergy Food Verified 09/13/22 06:52 Allergy prednisone AdvReac Other Verified 09/13/22 06:52 Qembnxn-HDX-FcC Reductase AdvReac cramps Verified 09/13/22 06:52 Inhibitor [Hkdpoqg-Rmm-Mgz Reductase Inhibitor] Family History (Reviewed 09/04/22 @ 13:03 by Roxann Gomez SURFACING MACHINE OPERATOR, SURFACING MACHINE OPERATOR-C) Mother Cancer Hx Lung CA. Father Cancer Hx Lung CA. Surgical History History of appendectomy History of back surgery History of breast biopsy History of History of cholecystectomy History of eye surgery History of tonsillectomy History of tubal ligation Social History household members: spouse Smoking Status: Former smoker quit date: 08/17/16 Tobacco: How many years used: 45 ROS ROS ED Constitutional Constitutional ED: Reports malaise; Denies chills or fever(s) Eyes Eyes: Denies change in vision or diplopia ENT ENT ED: Reports sore throat; Denies ear pain or rhinorrhea Cardiovascular Cardiovascular: Denies chest pain, orthopnea or palpitations Respiratory/Chest Respiratory/Chest: Reports cough and dyspnea; Denies orthopnea Gastrointestinal Gastrointestinal: Reports abdominal pain, diarrhea and nausea; Denies hematochezia, melena or vomiting Genitourinary Genitourinary ED: Denies dysuria or hematuria Musculoskeletal Musculoskeletal: Denies back pain or neck pain Integumentary Denies abscess or rash Neurologic Neurologic: Denies headache(s), paresthesias or weakness Psychiatric Psychiatric: Denies anxiety or suicidal thoughts EXAM Physical Exam Const Vital Signs: 09/13/22 06:47 09/13/22 06:54 09/13/22 07:20 Temperature 97.7 F L Temperature Source Oral Pulse Rate 74 56 L Respiratory Rate 16 16 Respiratory Effort Non-Labored Respiratory Pattern Normal Normal Blood Pressure 152/83 H Blood Pressure Mean 106 Pulse Ox 97 Oxygen Delivery Method 09/13/22 07:20 09/13/22 07:39 09/13/22 08:00 Temperature 97.7 F L 97.9 F Temperature Source Temporal Temporal Pulse Rate 65 58 L Respiratory Rate 18 17 Respiratory Effort Normal Respiratory Pattern Blood Pressure 153/76 H 126/73 H Blood Pressure Mean 101 90 Pulse Ox 93 93 Oxygen Delivery Method Room Air Room Air 09/13/22 08:47 09/13/22 10:00 Temperature Temperature Source Pulse Rate 66 58 L Respiratory Rate 12 12 Respiratory Effort Respiratory Pattern Blood Pressure 126/73 H 118/75 Blood Pressure Mean 90 89 Pulse Ox 97 94 Oxygen Delivery Method Room Air Room Air Positive well nourished and well developed Constitutional Narrative: well-appearing General Appearance ED: well developed and NAD HEENT Reports moist mucous membranes normocephalic and atraumatic Eyes PERRL and EOMs intact bilaterally Neck full ROM, no lymphadenopathy, supple and no JVD Resp normal respiratory effort Resp Narrative: Mild bibasal inspiratory wheezes and few rhonchi, no expiratory adventitious sounds. Effort and Inspection: able to speak in complete sentences Cardio regular rate, regular rhythm and no murmurs GI non-tender and non-distended Auscultation: normoactive bowel sounds Palpation: soft Back/Spine no CVA tenderness General Back: other FROM Extremity normal to inspection General Extremety ED: Negative for edema, pulses abnormal or tenderness General Extremity: Negative for edema or pulses abnormal Neuro oriented x3, CN's II-XII intact bilaterally and no sensory deficits noted Sensorium / Orientation: awake and alert Motor Exam: strength 5/5 throughout Skin no rashes or lesions noted and no wounds MDM MDM MDM Narrative Medical decision making narrative: Patient was hydrated with IV fluids here in the emergency department and given some Zofran while labs were obtained. The labs are normal. She has chronic AST and ALT elevations, and they are lower than usual. She has no leukocytosis. Also we did a two-view chest x-ray which on my interpretation is negative for any acute but showing chronic abnormalities consistent with bronchiectasis, radiology was in agreement. There is a small risk of this being a C. difficile, however she just finished taking the Levaquin yesterday and I doubt she would develop at that quickly having never had it before. However she wanted to stay until she could have diarrhea because she was having so much of it, so we observed her for several hours. She had no more diarrhea at all while in the emergency department for about 4 hours. She feels better. I will give her a kit to collect diarrhea with as well as a prescription for the C. difficile test we are not able to run just in case the diarrhea does continue, in the meantime supportive care advised, and continuing hydrate her self and she is comfortable with that plan and following up as needed. Of note, she said she did recently finish steroids as well, they did not seem to really help so I do not think we need to repeat any of that. She was also told that the antibiotic that she just finished yesterday will probably stay in her system at therapeutic levels for the next 4 to 5 days and she should continue with the yogurt and probiotic she is taking. Lab Data Attestation: I reviewed the patient's lab results. Labs: Laboratory Results - last 24 hr 09/13/22 09/13/22 07:37 07:37 WBC 7.1 RBC 5.37 Hgb 15.8 H Hct 47.5 H MCV 88.5 MCH 29.4 MCHC 33.3 RDW Std Deviation 42.7 RDW Coeff of Brittanie 13.1 Plt Count 336 MPV 9.7 Immature Gran % (Auto) 0.800 Neut % (Auto) 62.2 Lymph % (Auto) 22.2 [place] % (Auto) 12.4 H Eos % (Auto) 1.8 Baso % (Auto) 0.6 Absolute Neuts (auto) 4.4 Absolute Lymphs (auto) 1.57 Nucleated RBC % 0 Sodium 141 Potassium 4.9 Chloride 107 Carbon Dioxide 27.0 Anion Gap 7 BUN 19 H Creatinine 1.08 H Estim Creat Clear Calc 41.81 Est GFR (MDRD) Af Amer 65 Est GFR (MDRD) Non-Af 54 L BUN/Creatinine Ratio 17.6 Glucose 102 Calcium 9.3 Total Bilirubin 0.50 AST 53 H ALT 69 H Alkaline Phosphatase 100 Total Protein 7.2 Albumin 3.3 Globulin 3.9 Albumin/Globulin Ratio 0.8 L Radiography Diagnostic Testing: Clinical Impression(s) from Imaging Studies Chest X-Ray 09/13/22 08:00 IMPRESSION: Chronic interstitial changes without a superimposed acute pulmonary process or significant change since the previous study Electronically Signed: Sanket Bosch MD at 8:15 EST Reading Location ID and State: [facility] / [place] , Service support , Discharge Plan Triage Chief Complaint: General Illness ED Provider: Josue Arellano Dx/Rx/DC Orders Clinical Impression: Acute diarrhea, Mild dehydration, Acute lower respiratory tract infection, Bronchiectasis Prescriptions: No Action oxycodone-acetaminophen 5-325 mg tablet 1 tab PO Q8H PRN (Reason: Pain) (DME) Disability Placard See Rx Instructions .Route .MEDSUPPLY Qty: 1 0RF Rx Instructions: Expires 09/09/2025 cholecalciferol (vitamin D3) 125 mcg (5,000 unit) capsule 125 mcg PO DAILY ipratropium-albuterol 0.5 mg-3 mg(2.5 mg base)/3 mL solution for nebulization 3 ml inhalation Q4H PRN (Reason: shortness of breath or wheezing) Qty: 180 0RF red yeast rice 600 mg tablet 600 mg PO DAILY Rx Instructions: give with meal/snack levothyroxine 25 MCG tablet 25 mcg PO DAILY gabapentin 400 MG capsule 400 mg PO TID omeprazole 40 MG capsule,delayed release(DR/EC) 40 mg PO DAILY Qty: 0 0RF losartan 100 MG tablet 25 mg PO DAILY Qty: 0 0RF Rx Instructions: Start after 3 days. Hold for SBP less than 120 mmHg potassium citrate 10 mEq (1,080 mg) tablet extended release 20 meq PO DAILY Primary Care Provider: Fabricio Lemos Referrals: Tobias Gonsalves MD [Med Staff - Active Staff] - 1 Week if not improving (with regards to your cough/breathing) Fabricio Lemos MD [Primary Care Provider] - 3-5 Days if not improving (with regards to diarrhea) Disposition Disposition: Home, Self Care
[2022-09-13] MEDS: Ipratropium/Albuterol Sulfate 3 ML AMPUL.NEB INHALATION (07:17)
[2022-09-13 07:20] VITALS: PULSE 56; RESP 16
[2022-09-13] MEDS: Ondansetron 4 MG/2 ML Vial IV (07:23)
[2022-09-13] MEDS: 0.9% Normal Saline 1,000 ML 999 ML IV (07:23)
[2022-09-13 07:39] VITALS: BP 153/76; PULSE 65; RESP 18; TEMP 36.5; O2SAT 93
[2022-09-13 07:48] LABS: Absolute Lymphocyte Count 1.57 X10^3/uL (0.83-4.51); Absolute Neutrophil Count 4.4 X10^3/uL (2.0-7.7); Basophil# 0.04 X10^3/uL; Basophil% 0.6 % (0-1); Eosinophil# 0.13 X10^3/uL; Eosinophils% 1.8 % (0-5); Hematocrit 47.5 % (37-47); Hemoglobin 15.8 g/dL (12.0-15.0); Lymphocyte # 1.57 X10^3/ul (0.83-4.51); Lymphocyte % 22.2 % (19-41); Mean Corp Hgb Conc 33.3 g/dL (32-36); Mean Corpuscular Hgb 29.4 pg (27.0-32.0); Mean Corpuscular Volume 88.5 fL (81-99); Mean Platelet Vol. 9.7 fl (6.2-12.0); Monocyte# 0.88 X10^3/uL; Monocyte% 12.4 % (0-10); NRBC Flagged by Analyzer 0 % (0-5); Neutrophil % 62.2 % (47-70); Platelet Count 336 K/mm3 (150-450); RBC Distribution Width CV 13.1 % (11.6-14.6); RBC Distribution Width SD 42.7 fl (35.1-43.9); Red Blood Count 5.37 M/mm3 (4.2-5.4); White Blood Count 7.1 K/mm3 (4.4-11.0)
[2022-09-13 08:00] VITALS: BP 126/73; PULSE 58; RESP 17; TEMP 36.6; O2SAT 93
--- NOTE | 2022-09-13 08:00 | RAD_ITS ---
INDICATION: cough sob EXAMINATION/TECHNIQUE: X-RAY - XR Chest 2 Views COMPARISON: 11/17/2021 FINDINGS: LINES/DEVICES: EKG leads overlie the chest LUNGS: Lungs are expanded with chronic interstitial changes, no acute pulmonary process or significant interval change MEDIASTINUM AND CARDIOVASCULAR STRUCTURES: Cardiac silhouette not enlarged. Central airways and mediastinal contour are unremarkable. BONES AND SOFT TISSUES: Unremarkable. RAD/Chest PA and Lateral IMPRESSION: Chronic interstitial changes without a superimposed acute pulmonary process or significant change since the previous study Electronically Signed: Sanket Bosch MD at 8:15 EST ,
[2022-09-13 08:07] LABS: ALB/GLOB Ratio 0.8 RATIO (0.9-2.4); AST(SGOT) 53 U/L (15-37); Alanine Aminotransfer ALT/SGPT 69 U/L (13-56); Albumin, Serum 3.3 g/dL (3.2-5.0); Alkaline Phosphatase 100 U/L (45-117); Anion Gap 7 (5-15); BUN 19 mg/dL (7-18); BUN/Creat Ratio 17.6 RATIO (10-20); Calcium,Total 9.3 mg/dL (8.5-10.1); Chloride 107 mmol/L (98-107); Creatinine, Serum 1.08 mg/dL (0.55-1.02); EST Glomerular Filtration Rate 54 mL/min (>60); Est Glom Filt Rate - Afr Amer 65 mL/min (>60); Estimated Creatinine Clearance 41.81 ml/min; Globulin 3.9 g/dL (2.2-4.2); Glucose 102 mg/dL (74-106); Potassium 4.9 mmol/L (3.5-5.1); Protein, Total 7.2 g/dL (6.4-8.2); Sodium Level 141 mmol/L (136-145)
[2022-09-13 08:47] VITALS: BP 126/73; PULSE 66; RESP 12; O2SAT 97
[2022-09-13 10:00] VITALS: BP 118/75; PULSE 58; RESP 12; O2SAT 94
== END 2022-09-13 11:49 | disposition home or self-care (01) ==
PROVIDERS: Emergency Provider Emergency Medicine; PCP Family Medicine; Visit Provider Emergency Medicine
DX: R19.7 Diarrhea, unspecified (principal); J47.0 Bronchiectasis with acute lower respiratory infection; E86.0 Dehydration; G47.33 Obstructive sleep apnea (adult) (pediatric); I10 Essential (primary) hypertension; Z86.16 Personal history of COVID-19; Z79.899 Other long term (current) drug therapy; Z87.891 Personal history of nicotine dependence
CPT/HCPCS: 71046; 80053; 85025; 96361; 96374; 99251; 99282; J7030; A4216; G0463; J2405

== ENCOUNTER → 2023-01-18 | Outpatient (CLI) | payer MEDICARE, SELFPAY ==
--- NOTE | 2023-01-18 19:35 | CT_ITS ---
STUDY: LOW DOSE CT LUNG CANCER SCREENING REASON FOR EXAM: Female, 67 years old. smoker and gt; 40 pack years quit 2014 RADIATION DOSAGE (If Supplied By Facility): CTDIvol = ( 3.02 ) mGy, DLP = ( 94.02 ) mGycm TECHNIQUE: No contrast was administered. Low dose technique was utilized (average mAS-38 and kVp 120). 1.25 mm axial source images with a slice interval of 1.25-mm were reconstructed in lung windows. 2.5 mm axial source images with a slice interval of 2.5-mm were reconstructed in lung windows. 5.0 mm axial source images with a slice interval of 5.0-mm were reconstructed in soft tissue windows. COMPARISON: Comparison is made with prior study of January 18, 2022. NODULES: No suspicious nodules are seen. Emphysema: Hyperinflation. Once again, there is evidence of diffuse increased interstitial markings with areas of confluence involving both lungs as well as the both lower and upper lobes. Findings are included with diffuse interstitial pulmonary fibrosis. There is also evidence of honeycombing with subpleural bleb formation. Endobronchial lesion: Unremarkable. Aorta: Calcified atherosclerotic plaques. CORONARY ARTERIES: Coronary artery calcification is seen. Heart: Unremarkable Pulmonary artery: Unremarkable Mediastinal nodes: Unremarkable Other chest and abdominal findings: CT/Low Dose CT Lung Screening IMPRESSION: Lung-RADS category 2 - Continue annual screening with LDCT in 12 months. IMPORTANT NOTES FOR USE: ACR Lung-RADS Version 1.1 Assessment Categories Release Date: 2018 Category: Coded 0-4 bases on nodule(s) with highest degree of suspicion. Negative screen is defined as categories 1 and 2; a positive screen is defined as categories 3 and 4. Category 3 and 4A nodules that are unchanged on interval CT should be coded as category 2, and individuals returned to screening in 12 months. Category 4X: Category 3 or 4 nodules with additional imaging findings that increase the suspicion of lung cancer, such as spiculation, GGN that doubles in size in 1 year, enlarged lymph notes, etc. Category Modifiers: S (significant finding unrelated to lung cancer) Electronically Signed: Jesus Solitario MD at 12:34 EDT ,
== END | disposition home or self-care (01) ==
LOC: CT 19:31
PROVIDERS: PCP Family Medicine; Referring Provider Nurse Practitioner Acute Care; Visit Provider Nurse Practitioner Acute Care
DX: Z12.2 Encounter for screening for malignant neoplasm of respiratory organs (principal); Z87.891 Personal history of nicotine dependence
CPT/HCPCS: 71271

== ENCOUNTER → 2023-05-01 | Outpatient (CLI) | payer MEDICARE, SELFPAY ==
--- NOTE | 2023-05-02 08:13 | PFT ---
INTRODUCTION: The patient is a 67-year-old female who presents for pulmonary function studies secondary to a diagnosis of bronchiectasis. Respiratory therapy reported good patient effort. Bronchodilators were used during testing. INTERPRETATION: Forced expiration spirometry demonstrates no evidence of a large airways obstructive ventilatory defect. There was no significant response to aerosolized bronchodilators. Spirograms are of good quality and plateau normally. Body plethysmography was performed and revealed lung volumes to be within normal limits. Diffusing capacity by single breath CO was mildly reduced at 74% of predicted. IMPRESSION: Isolated mild reduction in diffusing capacity.
== END | disposition home or self-care (01) ==
LOC: PSN 09:07
PROVIDERS: PCP Family Medicine; Referring Provider Internal Medicine Critical Care Medicine; Visit Provider Internal Medicine Critical Care Medicine
DX: J47.9 Bronchiectasis, uncomplicated (principal)
CPT/HCPCS: 94060; 94726; 94729

== ENCOUNTER → 2023-05-03 | Outpatient (CLI) | payer MEDICARE, SELFPAY ==
[2023-05-03 08:18] VITALS: PULSE 66; PULSE 67; PULSE 74; PULSE 77; PULSE 80; PULSE 81; PULSE 82; PULSE 98; O2SAT 94; O2SAT 96; O2SAT 97; O2SAT 98
--- NOTE | 2023-05-07 08:10 | WT_ITS ---
PSN 6 Minute Walk Test 6 Minute Walk Test 6 Minute Walk Test: 6 Minute Walk Test PSN:6-Minute Walk Test Start: 05/03/23 08:18 Freq: Status: Active Protocol: [id number].6MINW Document 05/03/23 08:18 [facility] (Rec: 05/03/23 08:21 [facility] [id number]) 6 Minute Walk Test Date Performed 05/03/23 Time Performed 08:00 Height 5 ft 3 in Weight: 177 lb Weight in Pounds 177.[address]: Dr Gonsalves Assistive device used: None Pre-test Oxygen Delivery Method Room Air Pulse Ox 98 Pulse Rate (60-100) 67 Dyspnea Seamus Scale (0-10) 0 Exertion Seamus Scale (6-20) 6 1st minute Oxygen Delivery Method Room Air Pulse Ox 98 Pulse Rate (60-100) 74 2nd minute Oxygen Delivery Method Room Air Pulse Ox 98 Pulse Rate (60-100) 80 3rd minute Oxygen Delivery Method Room Air Pulse Ox 96 Pulse Rate (60-100) 77 4th minute Oxygen Delivery Method Room Air Pulse Rate (60-100) 98 Dyspnea Seamus Scale (0-10) 78 5th minute Oxygen Delivery Method Room Air Pulse Ox 97 Pulse Rate (60-100) 81 6th minute Oxygen Delivery Method Room Air Pulse Ox 94 Pulse Rate (60-100) 82 Dyspnea Seamus Scale (0-10) 2 Exertion Seamus Scale (6-20) 11 Reported Symptoms Increased Work of Breathing Post-test Oxygen Delivery Method Room Air Pulse Ox 97 Pulse Rate (60-100) 66 Full Laps Walked 17 Partial Lap, Number of Tiles Walked 0 Total Distance Walked (ft) 1003 Interpretation Interpretation: The patient ambulated 1003 feet over the course of 6 minutes beginning on room air without assistive devices. Pretesting oxygen saturation was noted to be 98% on room air. With ambulation, the melisa oxygen saturation was 94%. There was no significant exertional oxygen desaturation. Recommendations Recommendations: There is no indication for the use of supplemental oxygen at this time.
== END | disposition home or self-care (01) ==
LOC: PSN 07:54
PROVIDERS: PCP Family Medicine; Referring Provider Internal Medicine Critical Care Medicine; Visit Provider Internal Medicine Critical Care Medicine
DX: J47.9 Bronchiectasis, uncomplicated (principal)
CPT/HCPCS: 94618

== ENCOUNTER → 2023-06-19 | Outpatient (CLI) | payer MEDICARE, SELFPAY | END | disposition home or self-care (01) | LOC: SL 12:17 | PROVIDERS: PCP Family Medicine; Referring Provider Nurse Practitioner Acute Care; Visit Provider Nurse Practitioner Acute Care | DX: G47.33 Obstructive sleep apnea (adult) (pediatric) (principal) | CPT/HCPCS: 98960; G0463 ==

== ENCOUNTER → 2024-01-21 | Outpatient (CLI) | payer MEDICARE, SELFPAY ==
--- NOTE | 2024-01-21 07:19 | CT_ITS ---
EXAM: CT CHEST, LUNG CANCER SCREENING WITHOUT INTRAVENOUS CONTRAST CLINICAL INDICATION: smoker, quit 2016 TECHNIQUE: Helically acquired images were obtained of the chest without intravenous contrast using low dose (LDCT) lung cancer screening protocol. This CT exam was performed using one or more of the following dose reduction techniques: automated exposure control, adjustment of the mA and/or kV according to patient size, and/or use of iterative reconstruction technique. COMPARISON: CT Lung Cancer Screening dated 01/18/2023 FINDINGS: LUNGS AND PLEURAL SPACES: Normal. No pleural effusion or thickening. No pneumothorax. No interval change in the bilateral pulmonary scarring and emphysema. No evidence of a lung mass or acute consolidation of the lungs. HEART: Stable normal heart size. Moderate coronary artery calcification. No pericardial effusion. MEDIASTINUM: Normal. No mediastinal or hilar adenopathy. Esophagus is unremarkable. No hiatal hernia. THYROID: Normal. No thyroid nodules or calcification. BONES/JOINTS: No suspicious lytic or blastic abnormality. VASCULATURE: No aortic aneurysm. LYMPH NODES: Normal. No enlarged lymph nodes. CT/Low Dose CT Lung Screening IMPRESSION: 1. Stable pulmonary scarring and emphysema. 2. No evidence of a lung mass or suspicious pulmonary nodule. Lung-RADS score: 1S - Negative. Additional clinically significant or potentially clinically significant findings are described. Recommend continued annual screening with a low-dose CT (LDCT) in 12 months. Electronically Signed: Marvin Reis MD at 10:30 EDT ,
== END | disposition home or self-care (01) ==
LOC: CT 07:19
PROVIDERS: PCP Family Medicine; Referring Provider Nurse Practitioner Acute Care; Visit Provider Nurse Practitioner Acute Care
DX: Z12.2 Encounter for screening for malignant neoplasm of respiratory organs (principal); Z87.891 Personal history of nicotine dependence
CPT/HCPCS: 71271

== ENCOUNTER → 2024-04-01 | Outpatient (CLI) | payer MEDICARE, SELFPAY ==
--- NOTE | 2024-04-01 13:35 | ECHOCS_ITS ---
Reason For Study: Dyspnea/SOB Procedure This was a 2D Doppler, Color Flow transthoracic echocardiogram. The study was technically difficult. Contrast injection was performed. Exam performed in department. Left Ventricle Normal LV size. The estimated ejection fraction is 65 %. No evidence for diastolic dysfunction. No regional wall motion abnormalities noted. Right Ventricle Normal RV size. Normal systolic function. Atria Normal left atrium. Normal right atrium. No doppler evidence for ASD. Bubble contrast study negative for right to left interatrial shunt. Mitral Valve There is no mitral valve stenosis. No mitral valve insufficiency. Tricuspid Valve There is no tricuspid stenosis. Unable to estimate RV systolic pressure due to inadequate jet, pulmonary artery pressure probably normal. Aortic Valve Trisinus/trileaflet aortic valve. There is no aortic stenosis. No aortic valve insufficiency. Pulmonic Valve There is no pulmonic valvular stenosis. No pulmonic valve insufficiency. Great Vessels Normal aortic root. Pericardium/Pleural No pericardial effusion. Medication 22 gauge I.V. with prn adaptor inserted into right arm. Diluted definity 3.5ml given slow IV push to enhance endocardial definition. Performed a rapid injection of agitated mix of 9 cc saline and 1cc air to assess for atrial septal defect. MMode/2D Measurements & Calculations LVIDd: 4.6 cm IVSd: 0.91 cm Ao root diam: 2.7 cm LVIDs: 3.2 cm LVPWd: 0.96 cm FS: 29.6 % LAV(MOD-bp): 59.8 ml LVAd ap4: 31.1 cm2 SV(MOD-sp4): 59.8 ml LAV(MOD-bp) Indexed: 32.7 ml/m2 LVLd ap4: 7.7 cm LAV(MOD-sp2): 47.8 ml EDV(MOD-sp4): 102.1 ml LAV(MOD-sp4): 50.0 ml EDV(sp4-el): 106.4 ml LVAs ap4: 17.1 cm2 LVLs ap4: 5.7 cm ESV(MOD-sp4): 42.3 ml ESV(sp4-el): 44.0 ml EF(MOD-sp4): 58.6 % EF(sp4-el): 58.7 % SV(sp4-el): 62.4 ml LA A4 area: 18.3 cm2 RA A4 area: 14.9 cm2 TAPSE: 1.7 cm Time Measurements MV dec time: 0.26 sec Doppler Measurements & Calculations MV E max can: 90.8 cm/sec Lat Peak E' Can: 10.3 cm/sec Med Peak E' Can: 8.9 cm/sec MV A max can: 119.4 cm/sec E/E' lat: 8.8 E/E' med: 10.2 MV E/A: 0.76 MV V2 max: 152.0 cm/sec MV P1/2t max can: 114.3 cm/sec Ao V2 max: 162.0 cm/sec MV max P.2 mmHg MV P1/2t: 96.8 msec Ao max P.5 mmHg MV V2 mean: 74.2 cm/sec Ao V2 mean: 110.3 cm/sec MV mean P.7 mmHg MV dec slope: 345.8 cm/sec2 Ao mean P.6 mmHg MV V2 VTI: 51.2 cm MVA(P1/2t): 2.3 cm2 Ao V2 VTI: 40.1 cm AV (velocity ratio): 0.65 LV V1 max: 111.2 cm/sec TR max can: 220.9 cm/sec LV V1 max P.9 mmHg TR max P.5 mmHg LV V1 mean P.9 mmHg LV V1 mean: 81.2 cm/sec LV V1 VTI: 26.1 cm ECHO/Echo Complete W/ Contrast Interpretation Summary The estimated ejection fraction is 65 %. No evidence for diastolic dysfunction. Ordering Physician: Roxann Gomez Referring Physician: Roxann Gomez Performed By: Sesar Ferrera RCS
== END | disposition home or self-care (01) ==
LOC: CVS 13:35
PROVIDERS: PCP Family Medicine; Referring Provider Nurse Practitioner Acute Care; Visit Provider Nurse Practitioner Acute Care
DX: R06.02 Shortness of breath (principal)
CPT/HCPCS: 93306; Q9957; A4216; C8929

== ENCOUNTER → 2024-04-08 | Outpatient (CLI) | payer MEDICARE, SELFPAY | END | disposition home or self-care (01) | LOC: SL 19:51 | PROVIDERS: PCP Family Medicine; Referring Provider Nurse Practitioner Acute Care; Visit Provider Nurse Practitioner Acute Care | DX: G47.33 Obstructive sleep apnea (adult) (pediatric) (principal) | CPT/HCPCS: 95811 ==

== ENCOUNTER 2024-06-02 08:45 | Day surgery (SDC) | payer MEDICARE, SELFPAY ==
--- NOTE | 2024-06-02 09:30 | RAD_ITS ---
PROCEDURE: Caudal epidural steroid injection. DATE OF EXAMINATION: June 02, 2024. INDICATION: Female, 68 years old. Chronic back pain. FLUOROSCOPY TIME (if supplied): (4 seconds) minutes/seconds. 3.16 mGy. One image was submitted. RAD/Fluor Guidance for Spine Inj IMPRESSION: Intraoperative fluoroscopic services provided for caudal epidural steroid injection. Electronically Signed: Jesus Solitario MD at 14:31 EDT ,
[2024-06-02 09:40] VITALS: BP 186/83; PULSE 64; RESP 18; TEMP 36.4; O2SAT 99; BMI 30.1
[2024-06-02] MEDS: Lactated Ringers 1,000 ML 15 ML IV (09:43)
--- NOTE | 2024-06-02 10:26 | PCM.PRE.AN2 ---
ASA Classification* ASA Classification ASA Classification: 3 Assessment & Plan Anesthesia* Anesthesia Assessment Anesthesia Assessment: Discussed sedation and/or anesthesia options, risks, benefits, and alternatives with patient/parents/legal guardian/POA. Questions invited. The patient/parents/legal guardian/POA seems to understand and agrees to proceed with anesthesia plan. Reviewed the physical assessment, medical history, allergy history and patient home medications list prior to surgery/procedure/anesthetic and documented any changes. Performed airway and anesthesia risk assessments. Anesthesia Type Anesthesia Type: MAC History Source History Obtained from:: Patient and Chart Anesthesia Focused Assessment* Temperature: 97.5 F Pulse Rate: 64 Blood Pressure: 186/83 Respiratory Rate: 18 Pulse Ox: 99 Oxygen Delivery Method: Room Air Airway Assessment Mouth opens: >3 cm Mallampati Score: I Teeth Condition: Full (Full top denture is tight.) Neck Range of motion (ROM): Limited ROM (Somewhat decreased extension) Focused Labs Anesthesia Preop lab: CBC WBC 7.1 K/mm3 (4.4-11.0) 09/13/22 07:37 RBC 5.37 M/mm3 (4.2-5.4) 09/13/22 07:37 Hgb 15.8 g/dL (12.0-15.0) H 09/13/22 07:37 Hct 47.5 % (37-47) H 09/13/22 07:37 Plt Count 336 K/mm3 (150-450) 09/13/22 07:37 CHEMISTRY Potassium 4.9 mmol/L (3.5-5.1) 09/13/22 07:37 Sodium 141 mmol/L (136-145) 09/13/22 07:37 Magnesium 2.1 mg/dL (1.6-2.6) 08/16/20 04:42 Phosphorus 2.7 mg/dL (2.5-4.9) 08/15/20 06:24 BUN 19 mg/dL (7-18) H 09/13/22 07:37 Creatinine 1.08 mg/dL (0.55-1.02) H 09/13/22 07:37 Glucose 102 mg/dL (74-106) 09/13/22 07:37 POC Glucose 199 mg/dL (70-110) H 08/10/20 17:19 TSH 0.40 uIU/mL (0.358-3.74) 07/22/20 05:45 COAG PT 15.6 SECONDS (11.7-14.9) H 08/05/20 10:00 Pre-Assessment Diagnosis/Proposed Procedure Planned Operative Procedure(s): CAUDAL EPIDURAL STEROID INJECTION Anesthesia History Anesthesia History - door tender: Anesthesia History - door tender Hx Hospitalization No 05/28/24 11:58 Any Problems With Anesthesia No 05/28/24 11:58 Cholinesterase deficiency No 05/28/24 11:58 You/Your Family Experience No 05/28/24 11:58 fever (hyperthermia) with Relationship Recent Exposure to Contagious No 06/02/24 09:40 Disease Does patient have nerve No 05/28/24 11:58 stimulator Patient instructed to have device shut off --Does patient have Pacemaker No 06/02/24 09:40 or ICD? When Was Last Pacemaker Check QUESTION #4 FULL TEXT: You/Your Family Experience fever (hyperthermia) with Anesthesia Last Oral Intake Last Oral intake: Last Oral Intake NPO since 07:00 06/02/24 09:40 Meds taken in AM with sips of Yes 06/02/24 09:40 water? Meds patient instructed to see medlist 06/02/24 09:40 take am of surgery PONV PONV - door tender: PONV - door tender Female Yes 05/28/24 11:58 HX of Motion Sickness No 05/28/24 11:58 HX of N/V After Surgery No 05/28/24 11:58 Non-Smoker Yes 05/28/24 11:58 Duration of Surgery greater No 05/28/24 11:58 than 60 minutes Number of Risk Factors 2 05/28/24 11:58 PONV Score Moderate Risk 05/28/24 11:58 Height & Weight Height & Weight: Anesthesia: Height & Weight Height 5 ft 4 in 06/02/24 09:40 Weight: 79.7 kg 06/02/24 09:40 Body Mass Index (BMI) 30.1 06/02/24 09:40 Respiratory Assessment Respiratory Assessment - door tender: Respiratory Tract Infection Hx - door tender Hx Respiratory Tract Infection No 05/28/24 11:58 STOP Sleep Apnea STOP Sleep Apnea - door tender: STOP Sleep Apnea - door tender Hx Hypertension Yes: CONTROLLED WITH MED 05/28/24 11:58 Hx Sleep Apnea Yes 05/28/24 11:58 CPAP Yes: NONCOMPLIANT 05/28/24 11:58 BIPAP No 05/28/24 11:58 Do you snore loudly (louder than talking or can be heard Do you often feel tired/ fatigued/ sleepy during daytime? Has anyone observed you stop breathing during sleep? STOP Results Positive 05/28/24 11:58 QUESTION #5 FULL TEXT : Do you snore loudly (louder than talking or can be heard through closed doors)? Tobacco Use History Tobacco Use History - door tender: Tobacco Use History - door tender Tobacco Use Smoking Status Former smoker 05/28/24 11:58 Hx Tobacco Use No 05/28/24 11:58 Years Smoking Packs Smoked per Day Smoking Cessation Date was Yes - quit smoking within 15 05/28/24 11:58 within the last 15 years years Hx Smoking Cessation Date 09/17/15 05/28/24 11:58 Hx Smoking Cessation No 05/28/24 11:58 Counseling Hematologic Medial History Hematologic Hx - door tender: Hematologic Medical Hx - drop forge hand Hx of Blood Transfusion No 05/28/24 11:58 Hx of Transfusion in last 3 No 05/28/24 11:58 Months Date of Last Transfusion (if within last 3 months) Ever experience any problems No 05/28/24 11:58 with transfusion(s)? Specify any problems Hx of Preganancy in last 3 No 05/28/24 11:58 Months Nurse Filling Out Transfusion DSCHRIBER 05/28/24 11:58 & Questions: Date: 05/28/24 05/28/24 11:58 Time: 12:00 05/28/24 11:58 Patient unable to answer at this time (ie. confused, unrespo /Reproduction History /Reproductive History - door tender: /Reproductive Hx- door tender Hx Now No 05/28/24 11:58 Gestational Age (in weeks): EDC: Hx Hx Para Hx Section SAB No 05/28/24 11:58 Active Medications Active Medications: Current Medications Generic Name Dose Route Start Last Admin Trade Name Freq PRN Reason Stop Dose Admin Lactated Ringer's 1,000 mls @ 15 mls/hr 06/02/24 09:30 06/02/24 09:43 IV 15 mls/hr .Q48H DIAZ Administration PFSH Medical History Loss of hearing Wears glasses Wears dentures Post-menopausal Thyroid disease Arthritis High cholesterol DVT (deep venous thrombosis) Injury of back Migraine headache Syncope Difficulty chewing History of hiatal hernia History of ulceration History of diverticulitis Gastric reflux Former smoker Asthma CPAP (continuous positive airway pressure) dependence Leg cramps Shortness of breath on exertion History of pain when walking Hypertension Heart murmur History of echocardiogram History of stress test Cardiology follow-up encounter Bradycardia Chronic respiratory failure with hypoxia Smoking greater than 40 pack years ARMANDO (obstructive sleep apnea) Pulmonary hypertension Bronchiectasis History of staph infection HTN (hypertension) Hypoxia COVID-19 Home Medications ?Medication ?Instructions ?Recorded ?Last Taken ?Type levothyroxine 25 mcg tablet 25 mcg PO DAILY thyroid 11/03/17 06/02/24 History gabapentin 400 mg capsule 400 mg PO TID nerve pain 07/16/20 06/02/24 History omeprazole 40 mg capsule,delayed 40 mg PO DAILY gerd ##0 08/17/20 06/02/24 Rx release Disability Placard #1 ea 09/15/20 Unknown Rx cholecalciferol (vitamin D3) 125 125 mcg PO DAILY 05/17/21 Unknown History mcg (5,000 unit) capsule potassium citrate 10 mEq (1,080 20 meq PO DAILY potassium 01/26/22 Unknown History mg) tablet,extended release ipratropium 0.5 mg-albuterol 3 mg 3 ml inhalation Q4H PRN shortness 05/09/22 Unknown Rx (2.5 mg base)/3 mL nebulization of breath or wheezing #180 mL soln albuterol sulfate 90 mcg/actuation 2 puff inhalation Q4H PRN 06/13/23 Unknown History aerosol inhaler shortness of breath or wheezing bempedoic acid 180 mg tablet 180 mg PO DAILY 06/13/23 Unknown History (Nexletol) calcium 600 mg capsule 600 mg PO DAILY 05/28/24 Unknown History fluticasone propionate 50 1 spray intranasal DAILY PRN nasal 05/28/24 Unknown History mcg/actuation nasal congestion spray,suspension (Flonase Allergy Relief) hydrocodone-acetaminophen 5-325mg 1 - 1.5 tab PO TID pain 05/28/24 06/01/24 History 5mg-325mg losartan 25 mg tablet 25 mg PO DAILY 05/28/24 06/02/24 History Allergy/AdvReac Type Severity Reaction Status Date / Time DAVID Inhibitors Allergy Rash Verified 06/02/24 09:39 codeine Allergy Vomiting Verified 06/02/24 09:39 walnut Allergy Food Verified 06/02/24 09:39 Allergy prednisone AdvReac Other Verified 06/02/24 09:39 Memomon-FCZ-GnH Reductase AdvReac cramps Verified 06/02/24 09:39 Inhibitor (Qvoosvl-Sbg-Ktz Reductase Inhibitor) Family History Mother Cancer Hx Lung CA. Father Cancer Hx Lung CA. Surgical History Hx of right cataract extraction Hx of left cataract extraction Hx of breast reconstruction Hx of foot surgery Hx of surgical amputation of finger Hx of elbow surgery History of carpal tunnel surgery Hx of vein stripping History of cholecystectomy History of back surgery History of eye surgery History of breast biopsy History of tubal ligation History of History of appendectomy History of tonsillectomy Social History household members: spouse Smoking Status: Former smoker quit date: 08/17/16 Tobacco: How many years used: 45 Review of Systems (Anesthesia) ROS Narrative System reviewed and no additional complaints, except as documented.
[2024-06-02 10:31] VITALS: BP 186/83; PULSE 64; RESP 18; TEMP 36.4; O2SAT 99
[2024-06-02] MEDS: 0.9% Normal Saline (Pres. free 10 ML Vial (10:48)
[2024-06-02] MEDS: Lidocaine 1% (5 ml sdv) 5 ML Vial (10:48)
[2024-06-02] MEDS: MethylPREDNISolone Acetate 80 MG/ML Vial INTERVERTE (10:48)
--- NOTE | 2024-06-02 10:50 | OP.PCM_ITS ---
Report of Operation Date of Procedure: 06/02/24 Pre-Operative Diagnosis: Lumbosacral radiculopathy, lumbosacral degenerative di sc disease, lumbosacral spinal stenosis Post-Operative Diagnosis: Lumbosacral radiculopathy, lumbosacral degenerative disc disease, lumbosacral spinal stenosis Surgery/Procedure Performed:: Diagnostic/therapeutic caudal epidural steroid injection under fluoroscopic guidance Type of Anesthesia: MAC Estimated Blood Loss (mL): Minimal Description of Procedure: DESCRIPTION OF PROCEDURE: History and physical of today was reviewed. Risks and benefits of the procedure were explained. The patient understood and agreed to proceed. Informed consent was obtained. IV inserted per routine protocol. The patient was taken to the operating room and placed in the prone position with a pillow positioned underneath the abdomen. The lower back and tailbone area was prepped and draped in a sterile fashion using iodine x3. Under fluoroscopy guidance on a lateral view, the caudal space was identified. The skin and subcutaneous tissue was anesthetized with approximately 3 mL of 1% lidocaine using a 25-gauge regular needle. Under direct visualization with fluoroscopy, using a 22-gauge 3-1/2-inch spinal needle, the needle was advanced via the skin through the sacral hiatus. The tip of the needle was passed through the sacrococcygeal ligament and advanced to approximately S4 area. After negative aspiration of blood or CSF, a total of 3 mL of contrast was injected to confirm correct placement of the needle as well as cephalad spread. The spread was followed to approximately L5 area. After confirmation on AP as well as lateral view and repeated negative aspiration, a total of 15 mL of preservative-free 0.125% Marcaine with 80 mg of Depo-Medrol was injected easily. The needle was then removed intact. The patient experienced no sign or symptoms of intrathecal or intravascular injection. The patient experienced no paresthesia. The procedure was completed without any apparent difficulty or any complications. The patient appeared to tolerate it well. ASSESSMENT AND PLAN: This is a 68-year-old female with lumbosacral radiculopathy, lumbosacral degenerative disc disease, lumbosacral spinal stenosis status post diagnostic/therapeutic caudal epidural steroid injection, patient will continue her current medications, patient will follow in approximately 2 weeks for reevaluation. Complications None
--- NOTE | 2024-06-02 10:55 | PCM.POST.ANE ---
Anesthesia: Postop Eval I Current Vital Signs Temperature: 97 F Pulse Rate: 50 Blood Pressure: 136/77 Respiratory Rate: 16 Pulse Ox: 93 Oxygen Delivery Method: Room Air Assessment Airway patent: Yes Spontaneous unlabored respirations: Yes Mental status: Awake and Calm nausea: No Vomiting: No Anesthesia Complication: No Fluid Hydration Crystalloid volume administer (ml): 200 Total IV fluid infused: 200 Progress Note Anesthesia document: Postop Eval 1 completed: Yes
[2024-06-02 10:56] VITALS: BP 136/77; BP 186/63; PULSE 50; RESP 16; TEMP 36.1; O2SAT 92; O2SAT 93
[2024-06-02 11:00] VITALS: BP 145/62; BP 186/63; PULSE 49; RESP 16; O2SAT 93
[2024-06-02 11:06] VITALS: BP 155/71; BP 164/63; BP 186/63; PULSE 47; PULSE 49; RESP 16; O2SAT 94; O2SAT 96
--- NOTE | 2024-06-02 11:19 | POSTOPAN2_ITS ---
Anesthesia Postop Eval I Sum Postop Eval Completion status Anesthesia document: Postop Eval 1 completed: Yes Anesthesia Postop Eval I Summary Anesthesia Postop Eval I Summary: Anesthesia Postop Eval I: Assessment Summary Airway patent Yes 06/02/24 10:56 AMBULATORY SERVICE REPRESENTATIVE.[email or web address] Spontaneous unlabored Yes 06/02/24 10:56 AMBULATORY SERVICE REPRESENTATIVE.LANA respirations Mental status Awake,Calm 06/02/24 10:56 AMBULATORY SERVICE REPRESENTATIVE.LANA nausea No 06/02/24 10:56 AMBULATORY SERVICE REPRESENTATIVE.LANA Vomiting No 06/02/24 10:56 AMBULATORY SERVICE REPRESENTATIVEJOSELIN Anesthesia Postop Eval I: Fluid Summary Crystalloid volume administer 200 06/02/24 10:56 AMBULATORY SERVICE REPRESENTATIVE.LANA (ml) Colloids volume administered ( ml) Blood Product volume administered (ml) Total IV fluid infused 200 06/02/24 10:56 AMBULATORY SERVICE REPRESENTATIVEJOSELIN Anesthesia Postop Eval I: Summary Notes Anesthesia Complication No 06/02/24 10:56 SUNITA Anesthesia Complication Comment: Post-operative progress note Anesthesia: Postop Eval II Evaluation Mental status: Awake Pain Level: 0 nausea: No Vomiting: No
--- NOTE | 2024-06-02 11:19 | PCM.POSTANE2 ---
Anesthesia Postop Eval I Sum Postop Eval Completion status Anesthesia document: Postop Eval 1 completed: Yes Anesthesia Postop Eval I Summary Anesthesia Postop Eval I Summary: Anesthesia Postop Eval I: Assessment Summary Airway patent Yes 06/02/24 10:56 BIOLOGICAL SCIENTIST.[email or web address] Spontaneous unlabored Yes 06/02/24 10:56 BIOLOGICAL SCIENTIST.LANA respirations Mental status Awake,Calm 06/02/24 10:56 BIOLOGICAL SCIENTIST.LANA nausea No 06/02/24 10:56 BIOLOGICAL SCIENTIST.LANA Vomiting No 06/02/24 10:56 BIOLOGICAL SCIENTISTJOSELIN Anesthesia Postop Eval I: Fluid Summary Crystalloid volume administer 200 06/02/24 10:56 BIOLOGICAL SCIENTIST.LANA (ml) Colloids volume administered ( ml) Blood Product volume administered (ml) Total IV fluid infused 200 06/02/24 10:56 BIOLOGICAL SCIENTISTJOSELIN Anesthesia Postop Eval I: Summary Notes Anesthesia Complication No 06/02/24 10:56 SUNITA Anesthesia Complication Comment: Post-operative progress note Anesthesia: Postop Eval II Evaluation Mental status: Awake Pain Level: 0 nausea: No Vomiting: No
[2024-06-02 11:20] VITALS: BP 186/63
== END 2024-06-02 11:25 | disposition home or self-care (01) ==
LOC: SDC 08:47 → AC 09:14
PROVIDERS: PCP Family Medicine; Referring Provider Anesthesiology Pain Medicine; Visit Provider Anesthesiology Pain Medicine
PROC: 3E0S3BZ Introduction of Anesthetic Agent into Epidural Space, Percutaneous Approach (ICD-10-PCS; CPT 62282; principal; 2024-06-02 10:25)
DX: M51.17 Intervertebral disc disorders with radiculopathy, lumbosacral region (principal); M48.07 Spinal stenosis, lumbosacral region; I10 Essential (primary) hypertension; E78.00 Pure hypercholesterolemia, unspecified; E07.9 Disorder of thyroid, unspecified; Z79.890 Hormone replacement therapy; Z79.899 Other long term (current) drug therapy; Z86.16 Personal history of COVID-19; Z87.891 Personal history of nicotine dependence
CPT/HCPCS: 62323; 01992; 64483; 77003; J7120; J3490

== ENCOUNTER → 2024-11-11 | Outpatient (CLI) | payer MEDICARE, SELFPAY ==
--- NOTE | 2024-11-11 10:00 | PET_ITS ---
EXAM: PET/CT Study PROCEDURE: Following the intravenous administration of radionucleotide, image acquisition on a dedicated PET/CT unit was performed at one hour post injection. A preliminary CT study encompassing the Skull base, neck, chest, abdomen, pelvis, and proximal thighs was performed for purposes of attenuation correction and anatomic localization. The proximal thighs were also included. The patient's blood glucose level was 88 mg/dL (allowable range: 50-180 mg/dL). RADIOPHARMACEUTICAL: 12 mCi 18F-FDG (Fluorodeoxyglucose F18) IV was injected into he patient. CLINICAL HISTORY: 69-year-old female, left upper lobe perihilar mass, mediastinal and left hilar lymphadenopathy, multiple hepatic lesions. COMPARISON: None. TECHNIQUE: Approximately 60 minutes following the intravenous administration of 12 mCi of [id number], CT scan of the body was performed, without intravenous contrast medium, from the base of the skull down to the middle of the thighs followed by PET scan in same sequence. The CT scan was used for anatomic localization and photon attenuation correction of the PET scan. Utilizing a [employer] workstation, images were reconstructed and viewed in the axial, sagittal and coronal planes. Fused axial CT/SPECT images were also obtained. The blood glucose level was 88 mg/dl. Average liver SUV: 3.2. FINDINGS: Physiologic uptake: There may be expected metabolic uptake within the brain, tongue and floor of the mouth and larynx/vocal cords, heart, trell (many normal individuals have hilar uptake in less than 3 nodes with mildly avid hilar nodes less than 2.7 SUV), liver and spleen, system, and GI tract and symmetric muscle uptake. FDG AVID AND NON-AVID LESIONS. Reported avid SUV values (g/mL*) are maximum SUV. HEAD/NECK: No hypermetabolic lesion. CHEST: Hypermetabolic prevascular (3A) and left upper paratracheal (2L) lymphadenopathy. The prevascular lymph node measures 1.9 cm in short axis diameter, with a maximum SUV of 9.7. The left upper paratracheal lymph node measures 1.5 cm in short axis diameter, with a maximum SUV of 8.8. There is a spiculated, left upper lobe pulmonary nodule which abuts the anterior segmental bronchus of the left lung, and measures 2.4 x 2.0 cm, with a maximum SUV of 6.5. Additional left hilar lymphadenopathy, demonstrating a maximum SUV of 11.6. ABDOMEN: Hepatomegaly without obvious hypermetabolic lesion. Scattered hypodense lesions throughout the liver parenchyma. PELVIS: No intrapelvic hypermetabolic lesion. BONES/SOFT TISSUES: Numerous axial and appendicular hypermetabolic osseous lesions, within the left inferior scapula, left lateral 5th rib, T6, T12, L2 and L5 vertebral bodies, L4 spinous process, left femoral head, throughout the bilateral iliac crests, and bilateral acetabula. Noncontrast CT: Severe pulmonary emphysema. Coronary artery, thoracic aortic and aortoiliac calcifications. Hepatomegaly. Prior cholecystectomy. PET/PET/CT Tumor Base -Thigh Init IMPRESSION: 1. Hypermetabolic left upper lobe pulmonary nodule with FDG avid mediastinal an d left hilar lymphadenopathy, most compatible with primary lung cancer with regional lymph node involvement. 2. Hepatomegaly without obvious hypermetabolic lesion, however visualization of known hepatic metastases is limited by FDG technique. Visualization of hepatic metastases are much better visualized on r ecent CT abdomen pelvis. 3. Numerous axial and appendicular hypermetabolic osseous lesions, compatible w ith osseous metastatic disease. Please note the low-dose CT scan was performed to facilitate PET image reconstr uction and anatomic localization and does not replace a diagnostic CT. Any diagnostic CT requested and performed at the time of the PET will be reported separately. Reading Location: [facility]
== END | disposition home or self-care (01) ==
PROVIDERS: PCP Family Medicine; Referring Provider Nurse Practitioner Acute Care; Visit Provider Nurse Practitioner Acute Care
DX: R91.8 Other nonspecific abnormal finding of lung field (principal); J98.59 Other diseases of mediastinum, not elsewhere classified
CPT/HCPCS: 78815; A9552

== ENCOUNTER 2024-11-12 09:18 | Observation (INO) | payer MEDICARE, SELFPAY ==
[2024-11-12] VITALS (7 sets, daily range): BP systolic 126–140; BP diastolic 65–80; PULSE 84–92; RESP 16–18; TEMP 36–37.1; O2SAT 91–98; BMI 26.8
--- NOTE | 2024-11-12 09:49 | EX.ED.DYSGE1 ---
HPI History of Present Illness Chief Complaint: Abd Pain Narrative Narrative: 69-year-old female presents with generalized weakness, lightheadedness and dizziness/near syncope that she has had for quite some time. She has recently been worked up and found to have liver and lung masses. She has 10 out of 10 abdominal pain today associated with nausea. She states that she had a PET scan done yesterday and does not have the results. She states that she has 4-5 episodes of diarrhea and has had this for the last few months. Additionally, she had rectal bleeding today where she intermittently does from internal hemorrhoids. She presents because of the abdominal pain, and the generalized weakness with lightheadedness. [facility] Medical History Loss of hearing Wears glasses Wears dentures Post-menopausal Thyroid disease Arthritis High cholesterol DVT (deep venous thrombosis) Injury of back Migraine headache Syncope Difficulty chewing History of hiatal hernia History of ulceration History of diverticulitis Gastric reflux Former smoker Asthma CPAP (continuous positive airway pressure) dependence Leg cramps Shortness of breath on exertion History of pain when walking Hypertension Heart murmur History of echocardiogram History of stress test Cardiology follow-up encounter Bradycardia Chronic respiratory failure with hypoxia Smoking greater than 40 pack years ARMANDO (obstructive sleep apnea) Pulmonary hypertension Bronchiectasis History of staph infection HTN (hypertension) Hypoxia COVID-19 Home Medications ?Medication ?Instructions ?Recorded ?Last Taken ?Type levothyroxine 25 mcg tablet 25 mcg PO DAILY thyroid 11/03/17 06/02/24 History gabapentin 400 mg capsule 400 mg PO TID nerve pain 07/16/20 06/02/24 History omeprazole 40 mg capsule,delayed 40 mg PO DAILY gerd ##0 08/17/20 06/02/24 Rx release Disability Placard #1 ea 09/15/20 Unknown Rx cholecalciferol (vitamin D3) 125 125 mcg PO DAILY 05/17/21 Unknown History mcg (5,000 unit) capsule potassium citrate 10 mEq (1,080 20 meq PO DAILY potassium 01/26/22 Unknown History mg) tablet,extended release ipratropium 0.5 mg-albuterol 3 mg 3 ml inhalation Q4H PRN shortness 05/09/22 Unknown Rx (2.5 mg base)/3 mL nebulization of breath or wheezing #180 mL soln albuterol sulfate 90 mcg/actuation 2 puff inhalation Q4H PRN 06/13/23 Unknown History aerosol inhaler shortness of breath or wheezing calcium 600 mg capsule 600 mg PO DAILY 05/28/24 Unknown History fluticasone propionate 50 1 spray intranasal DAILY PRN nasal 05/28/24 Unknown History mcg/actuation nasal congestion spray,suspension (Flonase Allergy Relief) hydrocodone-acetaminophen 5-325mg 1 - 1.5 tab PO TID pain 05/28/24 06/01/24 History 5mg-325mg losartan 50 mg tablet 50 mg PO QDAY 11/03/24 Unknown History Allergy/AdvReac Type Severity Reaction Status Date / Time DAVID Inhibitors Allergy Rash Verified 11/12/24 09:18 codeine Allergy Vomiting Verified 11/12/24 09:18 walnut Allergy Food Verified 11/12/24 09:18 Allergy prednisone AdvReac Other Verified 11/12/24 09:18 [id number]-DRP-MeW Reductase AdvReac cramps Verified 11/12/24 09:18 Inhibitor (Pelcicv-Wer-Ddg Reductase Inhibitor) Family History Mother Cancer Hx Lung CA. Father Cancer Hx Lung CA. Surgical History Hx of right cataract extraction Hx of left cataract extraction Hx of breast reconstruction Hx of foot surgery Hx of surgical amputation of finger Hx of elbow surgery History of carpal tunnel surgery Hx of vein stripping History of cholecystectomy History of back surgery History of eye surgery History of breast biopsy History of tubal ligation History of History of appendectomy History of tonsillectomy Social History household members: spouse Smoking Status: Former smoker quit date: 08/17/16 Tobacco: How many years used: 45 ROS ROS ED ROS Narrative Constitutional: No fever, no chills. Generalized weakness. HEENT: No sore throat. No neck pain. Cardiovascular: No chest pain. No palpitations. No pedal edema. Respiratory: No cough, no shortness of breath. Abdominal: Positive abdominal pain. Positive nausea. Rare, occasional vomiting. 4-5 episodes of diarrhea daily. Positive rectal bleeding today as she has had intermittently for weeks. Genitourinary: No dysuria. No hematuria. Musculoskeletal: No myalgias. No arthralgias. Neurologic: No headaches. Positive dizziness and lightheadedness. Skin: No rash. No change in color. EXAM Physical Exam Narrative Exam Narrative: Afebrile. Vital signs noted. Nontoxic-appearing. No pallor. PERRL, EOMI. Moist mucous membranes to tacky. Cardiovascular examination reveals a regular rate and rhythm. Lungs are clear to auscultation bilaterally. Abdomen is soft with diffuse tenderness to palpation without guarding or rebound. Positive bowel sounds. Neurological examination nonfocal and nonlateralizing. Const Vital Signs: 11/12/24 09:19 11/12/24 11:25 Temperature 98.7 F Temperature Source Oral Pulse Rate 90 85 Respiratory Rate 18 16 Blood Pressure 131/72 H 140/80 H Blood Pressure Mean 91 100 Pulse Ox 98 91 Oxygen Delivery Method Room Air Room Air MDM MDM MDM Narrative Medical decision making narrative: I reviewed the patient's prior outpatient records and imaging that have been faxed. On a radiology report she has numerous bilobar hepatic masses suspicious for metastatic disease from unknown primary she also has mildly enlarged periportal lymph nodes. They suggested CT of the chest as well. On the review of the outpatient CT scan performed on 10/30/2024 there is an irregular left upper lobe perihilar mass which could represent primary lung malignancy or metastatic lesion. She has mediastinal and left hilar lymphadenopathy as well. Patient had been sent in by Dr. Lemos for failure of outpatient treatment as she is being worked up for the lung and liver masses. Differential diagnosis does include bowel obstruction versus pancreatitis versus metastatic pain. She was bolused normal saline 1 L intravenously as she may be dehydrated from her diarrhea or have another electrolyte imbalance. Comprehensive workup was pursued. Given her abdominal pain she was administered morphine and ondansetron and I do feel that CT imaging is indicated again. I reviewed her laboratory work and she has normal white count of 7.7 with hemoglobin normal at 13.8, hematocrit 41.0, platelet count normal at 326. Coagulation studies are negative. No profound dehydration with a normal sodium of 137 and potassium 4.4, glucose appropriately elevated at 102 with a normal anion gap of 14. LFTs are elevated with an AST of 529 and ALT of 142 and alk phos 494 consistent with her liver metastases. Lipase is elevated at 154 but I do not think that she has a full-blown pancreatitis secondary to it not being triple the upper end of normal. She did require an additional dose of morphine. Urinalysis obtained and is negative for infection. I do not feel that antibiotics are indicated. I reviewed the radiology report of the CT of the abdomen and pelvis with IV contrast and there is no obstruction. There is hepatomegaly with multiple metastases. No stranding or inflammation of the pancreas and was read as unremarkable. Given her continued pain, she will be given a p.o. challenge, but I do feel that at her request she would like to be observed for her intractable epigastric pain. She may have more of a gastritis as well or it may be pain coming from her metastases and enlarged liver. Patient was discussed with Dr. Horton. She was assigned observation on the general medical floor. Patient is in stable condition. History & Record Review Discussion w/independent historian: Patient Additional record(s) reviewed:: Prior outpatient record Lab Data Attestation: I reviewed the patient's lab results. Labs: Laboratory Results - last 24 hr 11/12/24 11/12/24 10:03 11:24 WBC 7.7 RBC 4.69 Hgb 13.8 Hct 41.0 MCV 87.4 MCH 29.4 MCHC 33.7 RDW Std Deviation 48.1 H RDW Coeff of Brittanie 15.1 H Plt Count 326 MPV 11.6 Immature Gran % (Auto) 0.400 Neut % (Auto) 75.7 H Lymph % (Auto) 10.5 L Bacon % (Auto) 12.3 H Eos % (Auto) 0.3 Baso % (Auto) 0.8 Absolute Neuts (auto) 5.9 Absolute Lymphs (auto) 0.81 L Nucleated RBC % 0 PT 14.2 INR 1.1 APTT 26.4 Sodium 137 Potassium 4.4 Chloride Direct 102 Carbon Dioxide 21.8 L Anion Gap 14 BUN 18 Creatinine 0.9 Estim Creat Clear Calc 54.07 Est GFR (MDRD) Non-Af 68 BUN/Creatinine Ratio 19.5 Glucose 102 H Calcium 10.5 Total Bilirubin 0.97 AST 529 H ALT 142 H Alkaline Phosphatase 494 H Total Protein 7.0 Albumin 3.9 Globulin 3.1 Albumin/Globulin Ratio 1.3 Lipase 154 H Urine Color Yellow Urine Clarity Clear Urine pH 6.0 Ur Specific [place] 1.015 Urine Protein 30 H Urine Glucose (UA) Normal Urine Ketones 5 H Urine Occult Blood Negative Urine Nitrite Negative Urine Bilirubin 1 H Urine Urobilinogen 1 H Ur Leukocyte Esterase Negative Urine RBC 0 SEEN Urine WBC 0-5 SEEN Ur Squamous Epith Cells 0-5 SEEN Urine Bacteria RARE Urine Mucus 0 SEEN Radiography Diagnostic Testing: Clinical Impression(s) from Imaging Studies Abdomen/Pelvis CT 11/12/24 10:56 IMPRESSION: Hepatomegaly. Diffuse hepatic metastasis. One or more dose reduction techniques were used (e.g., Automated exposure control, adjustment of the mA and/or kV according to patient size, use of iterative reconstruction technique). Reading Location: [id number] Discharge Plan Dx/Rx/DC Orders Clinical Impression: Epigastric pain, Elevated LFTs, Elevated lipase, Metastasis to liver Disposition Disposition: Acute Care [facility]
[2024-11-12] MEDS: 0.9% Normal Saline (1000mL) 1,000 ML 1000 ML IV (10:06)
[2024-11-12] MEDS: Ondansetron 4 MG/2 ML Vial IV (10:07)
[2024-11-12] MEDS: Morphine 4 MG/ML Syringe IV ×2 (10:08→12:01)
[2024-11-12 10:13] LABS: Absolute Lymphocyte Count 0.81 X10^3/uL (0.83-4.51); Absolute Neutrophil Count 5.9 X10^3/uL (2.0-7.7); Basophil# 0.06 X10^3/uL; Basophil% 0.8 % (0-1); Eosinophil# 0.02 X10^3/uL; Eosinophils% 0.3 % (0-5); Hemoglobin 13.8 g/dL (12.0-15.0); Lymphocyte # 0.81 X10^3/ul (0.83-4.51); Lymphocyte % 10.5 % (19-41); Mean Corp Hgb Conc 33.7 g/dL (32-36); Mean Corpuscular Hgb 29.4 pg (27.0-32.0); Mean Corpuscular Volume 87.4 fL (81-99); Mean Platelet Vol. 11.6 fl (6.2-12.0); Monocyte# 0.95 X10^3/uL; Monocyte% 12.3 % (0-10); NRBC Flagged by Analyzer 0 % (0-5); Neutrophil # 5.86 X10^3/uL (2.7-7.7); Neutrophil % 75.7 % (47-70); Platelet Count 326 K/mm3 (150-450); RBC Distribution Width CV 15.1 % (11.6-14.6); RBC Distribution Width SD 48.1 fl (35.1-43.9); Red Blood Count 4.69 M/mm3 (4.2-5.4); White Blood Count 7.7 K/mm3 (4.4-11.0)
[2024-11-12 10:25] LABS: Partial Thromboplast Time 26.4 Seconds (24.1-36.2)
[2024-11-12 10:28] LABS: International Normalized Ratio 1.1; Prothrombin Time (Protime)PT. 14.2 SECONDS (11.7-14.9)
[2024-11-12 10:41] LABS: ALB/GLOB Ratio 1.3 RATIO (0.9-2.4); AST(SGOT) 529 U/L (<=31); Alanine Aminotransfer ALT/SGPT 142 U/L (<=34); Albumin, Serum 3.9 g/dL (3.4-4.8); Alkaline Phosphatase 494 U/L (35-104); Anion Gap 14 (5-15); BUN 18 mg/dL (4-19); BUN/Creat Ratio 19.5 RATIO (10-20); Calcium 10.5 mg/dL (7.6-11.0); Carbon Dioxide 21.8 mmol/L (22.0-29.0); Chloride 102 mmol/L (96-108); Creatinine, Serum 0.9 mg/dL (0.6-1.0); EST Glomerular Filtration Rate 68 (>60); Estimated Creatinine Clearance 54.07 ml/min; Globulin 3.1 g/dL (2.2-4.2); Glucose 102 mg/dL (70-99); Lipase 154 U/L (13-75); Potassium 4.4 mmol/L (3.3-5.1); Sodium Level 137 mmol/L (133-145); Total Bilirubin 0.97 mg/dL (0.00-1.30)
--- NOTE | 2024-11-12 10:56 | CT_ITS ---
PROCEDURE: ABDOMEN/PELVIS W IV CONT ONLY REASON FOR EXAM: Several month history of nausea vomiting and diarrhea. TECHNIQUE: Abdomen and pelvis CT with intravenous contrast. No oral contrast. IV CONTRAST: 100 cc of Isovue-300. COMPARISON: None. FINDINGS: Coronary artery calcification. Lung bases: Increased interstitial markings at the lung bases suggestive of basilar scarring. Liver: Multiple hypodense nodules are seen throughout both lobes of the liver suggestive of diffuse metastatic disease. Hepatomegaly. Gallbladder: Surgically absent. Spleen: Unremarkable. Pancreas: Unremarkable. Adrenals: Unremarkable. Kidneys: Unremarkable. Bladder: Unremarkable. Reproductive Organs: Unremarkable. Bowel: Colonic diverticulosis without diverticulitis. Appendix: Normal. Lymph nodes: No suspicious lymph node enlargement. Vasculature: Mild diffuse atherosclerotic calcifications are noted. Peritoneum / Retroperitoneum: No ascites. No free air. Bones: Degenerative changes of the spine. CT/Abdomen/Pelvis W IV Cont ONLY IMPRESSION: Hepatomegaly. Diffuse hepatic metastasis. One or more dose reduction techniques were used (e.g., Automated exposure contr ol, adjustment of the mA and/or kV according to patient size, use of iterative reconstruction technique). Reading Location: [id number]
[2024-11-12 11:36] LABS: Mucous, Urine 0 SEEN /hpf (<or=2+)
[2024-11-12 11:40] LABS: Color, Urine Yellow (Yellow); Glucose, Dipstick Normal (Normal); Ketone-Dipstick 5 mg/dl (Negative); Leukocyte Esterase-Dipstick Negative /ul (Negative); Nitrite-Dipstick Negative (Negative); Occult Blood-Urine Negative /ul (Negative); Protein-Dipstick 30 mg/dl (Negative); Specific Gravity, Urine 1.015 (1.002-1.030); Urine Clarity Clear (Clear); Urine Urobilinogen 1 mg/dl (Normal)
[2024-11-12 11:42] LABS: Urine Bilirubin Dipstick 1 mg/dL (Negative)
[2024-11-12 11:55] LABS: Bacteria RARE /hpf (None Seen); Red Blood Cells-Urine 0 SEEN /hpf (0-5); Squamous Epithelial Cells - UA 0-5 SEEN /hpf (5-10); White Blood Cells 0-5 SEEN /hpf (0-5)
--- NOTE | 2024-11-12 13:06 | HP.PCM.HOS_ITS ---
HPI - General General Date of Admission: 11/12/24 Date of Service: 11/12/24 Chief Complaint: Abdominal pain HPI Narrative BUSHRA RODRIGEZ, is a 69 F who presented to the emergency department at [facility] on 11/12/2024 with a chief complaint of abdominal pain. The patient has had generalized weakness, lightheadedness and near syncope for about a month or more. She was recently diagnosed with a lung mass and is undergoing workup. A PET scan was performed yesterday. She reported she was having worsening right upper quadrant to epigastric pain today. She has had some nausea with no vomiting. She also had some rectal bleeding which she has intermittently from internal hemorrhoids however she states that it has been a little bit more than typical for her. She is unaware of her PET results at the time of admission. She does have a history of tobacco abuse and quit in 2016. She had significant secondhand exposure as well. Vital signs on presentation showed temperature of 98.7, heart rate 90, respiratory 18, blood pressure is 131/72 and pulse ox is 90% on room air. Her CBC is unremarkable. Coags were normal. Chemistry panel shows normal electrolytes with a slightly reduced serum bicarb of 21.8, normal serum creatinine but elevated LFTs with an AST of 529, ALT of 142, alk phos of 494. Her lipase is elevated at 154. Her UA is unremarkable for infection but is consistent with some mild dehydration and has ketones. CT of the abdomen/pelvis with IV contrast was performed in the emergency department shows hepatomegaly with diffuse hepatic metastasis. PET scan from yesterday was reviewed and shows hypermetabolic left upper lobe pulmonary nodule with FDG avid mediastinal and left hilar lymphadenopathy suggestive of primary lung cancer with regional lymph node involvement, hepatomegaly was noted without hypermetabolic lesions however visualization of known hepatic metastasis is noted to be limited by FDG and numerous axial and appendicular hypermetabolic osseous lesions compatible with osseous metastatic disease were noted as well. Given her intractable pain nausea she was admitted to the medical floor. I did discuss the case with her avid editor and we will go ahead and proceed getting a liver biopsy as I suspect her metastatic disease is likely the etiology of her pain and elevated LFTs. [facility] Medical History Loss of hearing Wears glasses Wears dentures Post-menopausal Thyroid disease Arthritis High cholesterol DVT (deep venous thrombosis) Injury of back Migraine headache Syncope Difficulty chewing History of hiatal hernia History of ulceration History of diverticulitis Gastric reflux Former smoker Asthma CPAP (continuous positive airway pressure) dependence Leg cramps Shortness of breath on exertion History of pain when walking Hypertension Heart murmur History of echocardiogram History of stress test Cardiology follow-up encounter Bradycardia Chronic respiratory failure with hypoxia Smoking greater than 40 pack years ARMANDO (obstructive sleep apnea) Pulmonary hypertension Bronchiectasis History of staph infection HTN (hypertension) Hypoxia COVID-19 Home Medications ?Medication ?Instructions ?Recorded ?Last Taken ?Type levothyroxine 25 mcg tablet 25 mcg PO DAILY thyroid 06/02/24 History gabapentin 400 mg capsule 400 mg PO TID nerve pain 06/02/24 History omeprazole 40 mg capsule,delayed 40 mg PO DAILY gerd # #0 08/17/20 06/02/24 Rx release Disability Placard #1 ea 09/15/20 Unknown Rx potassium citrate 10 mEq (1,080 20 meq PO DAILY potass ium 01/26/22 Unknown History mg) tablet,extended release albuterol sulfate 90 mcg/actuation 2 puff inhalation Q 4H PRN 06/13/23 Unknown History aerosol inhaler shortness of breath or wheez ing calcium 600 mg capsule 600 mg PO DAILY 05/28/24 Unk nown History fluticasone propionate 50 1 spray intranasal DAILY PRN nasal 05/28/24 Unknown History mcg/actuation nasal congestion spray,suspension (Flonase Allergy Relief) hydrocodone-acetaminophen 5-325mg 1 - 1.5 tab PO TID p ain 05/28/24 06/01/24 History 5mg-325mg cholecalciferol (vitamin D3) 25 25 mcg PO DAILY Unknown History mcg (1,000 unit) capsule (Vitamin D3) losartan 25 mg tablet 25 mg PO DAILY 11/12/24 Unkn own History Allergy/AdvReac Type Severity Reaction Status Date / Time DAVID Inhibitors Allergy Rash Verified 11/12/24 09:18 codeine Allergy Vomiting Verified 11/12/24 09:18 walnut Allergy Food Verified 11/12/24 09:18 Allergy prednisone AdvReac Other Verified 11/12/24 09:18 Ymhyawb-EDS-RdF Reductase AdvReac cramps Verified 11/12/24 09:18 Inhibitor (Yrezodj-Gik-Pnz Reductase Inhibitor) Family History Mother Cancer Hx Lung CA. Father Cancer Hx Lung CA. Surgical History Hx of right cataract extraction Hx of left cataract extraction Hx of breast reconstruction Hx of foot surgery Hx of surgical amputation of finger Hx of elbow surgery History of carpal tunnel surgery Hx of vein stripping History of cholecystectomy History of back surgery History of eye surgery History of breast biopsy History of tubal ligation History of History of appendectomy History of tonsillectomy Social History household members: spouse Smoking Status: Former smoker quit date: 08/17/16 Tobacco: How many years used: 45 ROS Constitutional Constitutional: Reports change in weight, fatigue, malaise and weakness; Denies anorexia, chills, fever(s), night sweats or other Eyes Eyes: Denies blurry vision, change in eye color, change in vision, discharge from eye(s), double vision, erythema, eye pain, loss of vision or other ENT HEENT: Denies abnormal hearing, dysphagia, ear pain, epistaxis, headache(s), hearing loss, nasal congestion, nasal discharge, post nasal drip, sinus pressure, sore throat or other Cardiovascular Cardiovascular: Denies chest pain, claudication, dyspnea on exertion, edema, lightheadedness, orthopnea, palpitations, paroxysmal nocturnal dyspnea, rapid heart rate, syncope or other Respiratory/Chest Respiratory/Chest: Denies cough, dyspnea, excessive phlegm production, hemoptysis, productive cough, shortness of breath at rest, shortness of breath with exertion, wheezing or other Gastrointestinal Gastrointestinal: Reports abdominal pain, hematochezia, loose stools and nausea; Denies coffee ground emesis, constipation, diarrhea, dyspepsia, hematemesis, melena, vomiting or other Genitourinary Genitourinary: Denies burning urination, difficulty urinating, dysuria, hematuria, nocturia, urinary frequency, urinary hesitancy, urinary incontinence, urinary urgency or other Musculoskeletal Musculoskeletal: Denies arthralgias, back pain, joint pain, joint stiffness, joint swelling, myalgias, neck pain or other Neurologic Neurologic: Denies abnormal gait, abnormal speech, confusion, disequilibrium, dizziness, focal weakness, headache(s), numbness, paresthesias, seizure-like activity, seizures, syncope, tingling, tremor(s) or other Psychiatric Psychiatric: Denies anxiety, depression, homicidal ideation, suicidal ideation or other Endocrine Endocrinology: Denies change in body appearance, cold intolerance, excessive sweating, heat intolerance, polydipsia, polyuria or other Hematologic/Lymphatic Hematologic/Lymphatic: Denies anemia, easy bleeding, easy bruising, lymphadenopathy or other Allergic/Immunologic Allergic/Immunologic: Denies rhinitis, hives, eczemia, asthma or other Vital Signs Vital Signs Vital Signs: 11/12/24 09:19 11/12/24 11:25 Temperature 98.7 F Temperature Source Oral Pulse Rate 90 85 Respiratory Rate 18 16 Blood Pressure 131/72 H 140/80 H Blood Pressure Mean 91 100 Pulse Ox 98 91 Oxygen Delivery Method Room Air Room Air Weight Weight: 68.629 kg Body Mass Index (BMI) 26.8 Physical Exam Const alert, oriented x3 and average body habitus; Negative for healthy appearing Constitutional Narrative: Older, white female, appears mildly uncomfortable, sitting up in bed, does not appear toxic, very pleasant General Appearance: cooperative HEENT normocephalic, head/scalp atraumatic, hearing grossly normal bilaterally and moist oral mucous membranes HEENT Narrative: Mallampati 2, no thrush Eyes EOMs intact bilaterally and conjunctivae normal Eyes Narrative: No scleral icterus Neck supple Neck Narrative: Trachea midline, no thyroid enlargement Resp normal respiratory effort, no retractions, no use of accessory muscles and clear to auscultation bilaterally Resp Narrative: Diffusely diminished but clear Auscultation: Negative for rales, rhonchi or wheezes Cardio regular rate, regular rhythm, S1 normal heart sound, S2 normal heart sound, no murmurs, no rub, no gallops and no clicks GI GI Narrative: Hepatomegaly noted, very tender right upper quadrant and epigastrium, less tenderness elsewhere, bowel sounds are normoactive to hyperactive, abdomen is soft Extremity no clubbing, cyanosis or edema Extremity Narrative: Pedal pulses are 2+ Skin skin turgor normal, no jaundice, no petechiae and no mottling Neuro oriented x3, moves all extremities and no focal motor deficits Neuro Narrative: Generalized weakness with no focal deficits noted Speech: speech normal Psych affect normal Psych Narrative: Very pleasant, interacts appropriately Results Lab / Micro Data 11/12/24 10:03 11/12/24 10:03 Labs: Laboratory Results - last 24 hr 11/12/24 10:03: WBC 7.7, RBC 4.69, Hgb 13.8, Hct 41.0, MCV 87.4, MCH 29.4, MCHC 33.7, RDW Std Deviation 48.1 H, RDW Coeff of Brittanie 15.1 H, Plt Count 326, MPV 11.6, Immature Gran % (Auto) 0.400, Neut % (Auto) 75.7 H, Lymph % (Auto) 10.5 L, [place] % (Auto) 12.3 H, Eos % (Auto) 0.3, Baso % (Auto) 0.8, Absolute Neuts (auto) 5.9, Absolute Lymphs (auto) 0.81 L, Nucleated RBC % 0, PT 14.2, INR 1.1, APTT 26.4, Sodium 137, Potassium 4.4, Chloride Direct 102, Carbon Dioxide 21.8 L, Anion Gap 14, BUN 18, Creatinine 0.9, Estim Creat Clear Calc 54.07, Est GFR (MDRD) Non-Af 68, BUN/Creatinine Ratio 19.5, Glucose 102 H, Calcium 10.5, Total Bilirubin 0.97, AST 529 H, ALT 142 H, Alkaline Phosphatase 494 H, Total Protein 7.0, Albumin 3.9, Globulin 3.1, Albumin/Globulin Ratio 1.3, Lipase 154 H 11/12/24 11:24: Urine Color Yellow, Urine Clarity Clear, Urine pH 6.0, Ur Specific [place] 1.015, Urine Protein 30 H, Urine Glucose (UA) Normal, Urine Ketones 5 H, Urine Occult Blood Negative, Urine Nitrite Negative, Urine Bilirubin 1 H, Urine Urobilinogen 1 H, Ur Leukocyte Esterase Negative, Urine RBC 0 SEEN, Urine WBC 0-5 SEEN, Ur Squamous Epith Cells 0-5 SEEN, Urine Bacteria RARE, Urine Mucus 0 SEEN Imaging Radiology Impression Abdomen/Pelvis CT 11/12/24 10:56 IMPRESSION: Hepatomegaly. Diffuse hepatic metastasis. One or more dose reduction techniques were used (e.g., Automated exposure control, adjustment of the mA and/or kV according to patient size, use of iterative reconstruction technique). Reading Location: [id number] Assessment & Plan Assessment/Plan (1) Elevated LFTs: (2) Epigastric pain: (3) Intractable abdominal pain: (4) Metastasis to liver: (5) Elevated lipase: PLAN: Plan Intractable abdominal pain and nausea -Will start clear liquid diet--> if tolerates will consider transition tomorrow -Highly suspect related to hepatomegaly and metastatic disease noted on CT of the abdomen and pelvis -Will utilize as needed Toradol -3 L IV fluid -As needed Dilaudid -As needed oral oxycodone with intent to transition to all oral medication in the next 24 hours -As needed antiemetics Diarrhea with hematochezia -Check enteric panel and C. difficile Elevated lipase -Etiology is unclear -No signs of pancreatitis and exam is not consistent with pancreatitis Transaminitis -Highly suspect related to metastatic disease noted throughout liver -Repeat lab in a.m. -Coags are normal Lung mass -Suspect primary lung malignancy with metastatic disease to the liver and skeleton -PET scan shows multiple osseous metastatic lesions -CT of the abdomen pelvis shows numerous hepatic lesions -Liver biopsy planned for tomorrow -Will need to follow-up with oncology and pulmonary medicine as an outpatient Severe malnutrition -Dietitian consulted -40 pound weight loss -supplements added COPD -No signs of acute exacerbation -Continue home inhalers Neuropathy -Continue home gabapentin Hypertension -Continue losartan GERD -Continue home PPI Hypothyroidism -Continue home levothyroxine DVT prophylaxis -Subcu enoxaparin daily CODE STATUS -Full code is verified Charges/Coding Visit Charges Inpatient E&M: 80316 Init Hosp L2
[2024-11-12] MEDS: Gabapentin 400 MG Capsule PO ×2 (15:56→21:19)
[2024-11-12] MEDS: Lactated Ringers 1,000 ML 100 ML IV (15:56)
[2024-11-12] MEDS: Lidocaine 2% Viscous15 ML UDC 15 ML PO (15:57)
[2024-11-12] MEDS: Mag Hydrox/Al Hydrox/Simeth 30 ML UDC PO (15:57)
[2024-11-12] MEDS: Pantoprazole Sodium 40 MG in 0.9% Normal Saline (100mL MB+) 100 ML 330 MG IV ×2 (15:57→21:19)
--- NOTE | 2024-11-12 20:27 | CPS ---
pt asked if wants our cpap for tonight-pt declined said family was bringing hers in tomorrow and will be fine with out one tonight
[2024-11-12] MEDS: HYDROmorphone 0.5 MG/0.5 ML SYRINGE IV (21:25)
[2024-11-13] MEDS: Lactated Ringers 1,000 ML 100 ML IV ×2 (01:04→12:12)
[2024-11-13] MEDS: HYDROmorphone 0.5 MG/0.5 ML SYRINGE IV ×4 (01:09→17:09)
[2024-11-13 04:34] LABS: Absolute Lymphocyte Count 1.02 X10^3/uL (0.83-4.51); Absolute Neutrophil Count 4.2 X10^3/uL (2.0-7.7); Basophil# 0.05 X10^3/uL; Basophil% 0.8 % (0-1); Eosinophil# 0.04 X10^3/uL; Eosinophils% 0.6 % (0-5); Hematocrit 35.9 % (37-47); Hemoglobin 11.7 g/dL (12.0-15.0); Lymphocyte # 1.02 X10^3/ul (0.83-4.51); Lymphocyte % 16.3 % (19-41); Mean Corp Hgb Conc 32.6 g/dL (32-36); Mean Corpuscular Hgb 28.9 pg (27.0-32.0); Mean Corpuscular Volume 88.6 fL (81-99); Mean Platelet Vol. 11.2 fl (6.2-12.0); Monocyte# 0.92 X10^3/uL; Monocyte% 14.7 % (0-10); NRBC Flagged by Analyzer 0 % (0-5); Neutrophil % 67.3 % (47-70); Platelet Count 249 K/mm3 (150-450); RBC Distribution Width CV 15.3 % (11.6-14.6); RBC Distribution Width SD 49.1 fl (35.1-43.9); Red Blood Count 4.05 M/mm3 (4.2-5.4); White Blood Count 6.3 K/mm3 (4.4-11.0)
[2024-11-13] MEDS: Levothyroxine 25 MCG TABLET PO (05:44)
[2024-11-13] MEDS: Gabapentin 400 MG Capsule PO ×3 (05:44→22:01)
[2024-11-13 05:45] VITALS: BP 117/58; PULSE 77; RESP 18; TEMP 36.2; O2SAT 94
[2024-11-13 05:51] VITALS: BMI 27.9
--- NOTE | 2024-11-13 05:55 | EKG12_ITS ---
Test Reason : AM Blood Pressure : */* mmHG Vent. Rate : 71 BPM Atrial Rate : 71 BPM P-R Int : 204 ms QRS Dur : 74 ms QT Int : 390 ms P-R-T Axes : 47 -15 25 degrees QTcB Int : 423 ms Normal sinus rhythm Normal ECG When compared with ECG of 12-Nov-2021 18:29, No significant change was found Confirmed by Giovanny Frazier ([id number]), deputy editor in chief HOMERO FLOWERS ([id number]) on 11/13/2024 9:23:24 AM Referred By: Confirmed By: Giovanny Frazier
[2024-11-13 06:04] LABS: ALB/GLOB Ratio 1.7 RATIO (0.9-2.4); AST(SGOT) 462 U/L (<=31); Alanine Aminotransfer ALT/SGPT 133 U/L (<=34); Albumin, Serum 3.5 g/dL (3.4-4.8); Alkaline Phosphatase 422 U/L (35-104); Anion Gap 12 (5-15); BUN 10 mg/dL (4-19); BUN/Creat Ratio 12.3 RATIO (10-20); Calcium 9.9 mg/dL (7.6-11.0); Carbon Dioxide 21.4 mmol/L (22.0-29.0); Chloride 105 mmol/L (96-108); Creatinine, Serum 0.8 mg/dL (0.6-1.0); EST Glomerular Filtration Rate 74 (>60); Estimated Creatinine Clearance 62.02 ml/min; Glucose 90 mg/dL (70-99); Magnesium 1.7 mg/dL (1.5-2.2); Phosphorus 2.9 mg/dL (2.7-4.5); Potassium 4.3 mmol/L (3.3-5.1); Protein, Total 5.5 g/dL (5.9-8.4); Sodium Level 138 mmol/L (133-145); Total Bilirubin 0.84 mg/dL (0.00-1.30)
[2024-11-13 10:19] VITALS: BP 125/71; PULSE 74; RESP 16; TEMP 36.8; O2SAT 93
[2024-11-13] MEDS: Pantoprazole Sodium 40 MG in 0.9% Normal Saline (100mL MB+) 100 ML 330 MG IV ×2 (10:33→22:44)
[2024-11-13] MEDS: Losartan Potassium 50 MG Tablet PO (10:33)
[2024-11-13] MEDS: Ensure Plus High Protein 120 ML LIQUID PO (14:30)
--- NOTE | 2024-11-13 15:57 | CHAPLAIN ---
Type of Pastoral Visit _x__ Initial Visit ___ Follow-up Visit ___ On-call Visit ___ General Patient Visit ___ Spiritual Assessment ___ Family Conference ___ Bereavement ___ Rapid Response ___ Code Blue ___ Other (describe below) Pastoral Care Referral From _x__ Patient ___ Family ___ Nurse ___ Physician ___ Payloader Machine Operator ___ Curriculum Coordinator ___ Other (describe below) Sacrament/Intervention _x__ Active listening ___ Anointing ___ Jew ___ Bereavement ___ Communion _x__ Thi exploration ___ ___ Life review _x__ Prayer ___ Reconciliation ___ Sacrament of Sick _x__ Supportive presence ___ Wedding ___ Other (describe below) Pastoral Comments patient and son are in a darkened room where call light was on; response to call light was made; pt indicates that she has cancer in several locations and is waiting for a biopsy to be done tomorrow; pt says that her thi and her stubborn determination are strong; pt says that she survived a welsh with COVID and will be hopeful in this 'difficult diagnosis'; pt welcomes prayer and supportive presence
[2024-11-13 16:03] VITALS: BP 132/77; PULSE 81; RESP 16; TEMP 36.2; O2SAT 98
[2024-11-13] MEDS: Ondansetron 4 MG/2 ML Vial IV (16:12)
--- NOTE | 2024-11-13 18:39 | PCM.PN.HOSP ---
Reason for Visit Reason for Visit: Abdominal pain Subjective Subjective Unfortunately, liver biopsy was canceled and will be tomorrow. We did discuss transitioning Dilaudid to oral medications in preparation for possible discharge tomorrow. Patient was amenable to this. She does follow with pain management so I advised her to follow-up but also to tell them she would be following with palliative care. Will give one-time dose of Imodium for her stool. Objective Data Objective Data Vital Signs: Vital Signs Temp Pulse Resp BP Pulse Ox O2 Del Method 97.1 F L 81 16 132/77 H 98 Room Air 11/13/24 16:03 11/13/24 16:03 11/13/24 16:03 11/13/24 16:03 11/13/24 16:03 11/13/24 16:03 Oxygen Delivery Method Room Air Weight: 71.5 kg Body Mass Index (BMI) 27.9 Intake & Output: Intake and Output for Last 24 Hours 11/11/24 11/12/24 11/13/24 23:59 23:59 23:59 Intake Total 1894 Balance 1894 Medical Nutrition Assessment Dietitian: Malnutrition Criteria Met Start: 11/13/24 15:20 Freq: Status: Active Protocol: Document 11/13/24 15:45 LO (Rec: 11/13/24 15:45 LO [id number]) Nutrition Malnutrition Evidence of Yes Malnutrition Exists Malnutrition (severe Chronic ): Evidenced By Suboptimal Energy Intake (Severe),Weight Loss (Severe) Intake Problem Inadequate Oral Intake Status Inactive Problem Clinical Problem Chronic Disease or Condition Related Malnutrition Etiology severe related to suboptimal appetite Signs/Symptoms as evidenced by 10.3% weight loss in ~2.5 months and PO intakes meeting <75% of estimated nutrition needs x2.5 months Status Active Problem Unintended Weight Loss Status Inactive Problem Recommendation Dietitian Continue Regular diet to optimize oral intakes. Recommendations/ Continue 120mL Ensure plus high protein 4x daily with Changes medpass to provide supplemental energy. Will discontinue 120mL Ensure Clear TID with medpass. Lab / Micro Data 11/13/24 04:15 11/13/24 04:15 Labs: Laboratory Results - last 24 hr 11/13/24 04:15: WBC 6.3, RBC 4.05 L, Hgb 11.7 L, Hct 35.9 L, MCV 88.6, MCH 28.9, MCHC 32.6, RDW Std Deviation 49.1 H, RDW Coeff of Brittanie 15.3 H, Plt Count 249, MPV 11.2, Immature Gran % (Auto) 0.300, Neut % (Auto) 67.3, Lymph % (Auto) 16.3 L, [place] % (Auto) 14.7 H, Eos % (Auto) 0.6, Baso % (Auto) 0.8, Absolute Neuts (auto) 4.2, Absolute Lymphs (auto) 1.02, Nucleated RBC % 0, Sodium 138, Potassium 4.3, Chloride Direct 105, Carbon Dioxide 21.4 L, Anion Gap 12, BUN 10, Creatinine 0.8, Estim Creat Clear Calc 62.02, Est GFR (MDRD) Non-Af 74, BUN/Creatinine Ratio 12.3, Glucose 90, Calcium 9.9, Phosphorus 2.9, Magnesium 1.7, Total Bilirubin 0.84, AST 462 H, ALT 133 H, Alkaline Phosphatase 422 H, Total Protein 5.5 L, Albumin 3.5, Globulin 2.0 L, Albumin/Globulin Ratio 1.7, TSH 3.530 Micro: Microbiology 11/12/24 18:37 Stool Enteric Bacteriology - Final 11/12/24 18:37 Stool Stool Occult Blood (MAXWELL) - Final Occult Blood Positive Physical Exam Const alert, oriented x3, no apparent distress and average body habitus; Negative for healthy appearing Constitutional Narrative: Older, white female, appears mildly uncomfortable, sitting up in bed, does not appear toxic, very pleasant, daughter at bedside General Appearance: cooperative HEENT normocephalic, head/scalp atraumatic and moist oral mucous membranes Resp normal respiratory effort, no retractions, no use of accessory muscles and clear to auscultation bilaterally Resp Narrative: Diffusely diminished but clear Auscultation: Negative for rales, rhonchi or wheezes Cardio regular rate, regular rhythm, S1 normal heart sound, S2 normal heart sound, no murmurs, no rub, no gallops and no clicks GI GI Narrative: Hepatomegaly noted, tar distillation supervisor right upper quadrant and less so in epigastrium, bowel sounds are normal, abdomen is soft, nondistended Extremity no clubbing, cyanosis or edema Extremity Narrative: Pedal pulses are 2+ Neuro oriented x3, moves all extremities and no focal motor deficits Neuro Narrative: Minimal generalized weakness with no focal deficits noted Speech: speech normal Psych affect normal Psych Narrative: Very pleasant, interacts appropriately Assessment & Plan Assessment/Plan (1) Elevated LFTs: (2) Epigastric pain: (3) Intractable abdominal pain: (4) Metastasis to liver: (5) Elevated lipase: PLAN: Plan Intractable abdominal pain and nausea -Abdominal pain better will start regular diet -Highly suspect related to hepatomegaly and metastatic disease noted on CT of the abdomen and pelvis -Will utilize as needed Toradol -3 L IV fluid to be completed tonight -Discontinue Dilaudid -Start oxycodone 5 mg every 4 hours as needed -Start controlled release Oxy 10 mg p.o. twice daily -Complete Toradol -As needed antiemetics -Palliative care consultation at discharge Diarrhea with hematochezia -Enteric panel and C. difficile are negative -Guaiac was performed which she knew and she had bright red blood from hemorrhoids -Hemoglobin is relatively stable with appropriate drop for IV fluids -Repeat lab in a.m. -One-time dose of Imodium however do not want to give too much as she is on narcotics and will likely end up constipated Elevated lipase -Etiology is unclear -No signs of pancreatitis and exam is not consistent with pancreatitis Transaminitis -Highly suspect related to metastatic disease noted throughout liver -Labs remained stable -Coags were normal on admission Lung mass -Suspect primary lung malignancy with metastatic disease to the liver and skeleton -PET scan shows multiple osseous metastatic lesions -CT of the abdomen pelvis shows numerous hepatic lesions -Liver biopsy was planned for today but canceled and will be rescheduled for tomorrow 11/14/2024 -Will need to follow-up with oncology and pulmonary medicine as an outpatient Severe malnutrition -Dietitian following -40 pound weight loss -supplements added COPD -No signs of acute exacerbation -Continue home inhalers Neuropathy -Continue home gabapentin Hypertension -Continue losartan GERD -Continue home PPI Hypothyroidism -Continue home levothyroxine DVT prophylaxis -Subcu enoxaparin daily CODE STATUS -Full code is verified Charges/Coding Visit Charges Inpatient E&M: 72948 Subs Hosp L2
[2024-11-13] MEDS: Loperamide 2 MG Capsule PO (19:01)
[2024-11-13 22:00] VITALS: BP 120/77; PULSE 84; RESP 16; TEMP 36.7; O2SAT 92
[2024-11-13] MEDS: oxyCODONE HCl Cr 10 MG Tablet PO (22:01)
[2024-11-14] VITALS (19 sets, daily range): BP systolic 105–143; BP diastolic 57–82; PULSE 64–86; RESP 12–20; TEMP 36.4–37.2; O2SAT 90–98; BMI 28.3
--- NOTE | 2024-11-14 | ASPIGT_PTH ---
PATIENT: BUSHRA RODRIGEZ LOC: [facility] U#:[id number] AGE/SX: 69/F ROOM: [facility] RE11/12/[address]: Dr. Mae Horton DO : 1955 BED: 1 DIS: 11/15/2024 SPEC #: [id number] RECD: 11/14/24 10:52 STATUS: MAGDALENA STEPHENS #: [id number] CLAIRE: 11/14/24 00:[address]: Mae Horton DEPT: SURGICAL PATHOLOGY RECD BY: Jenny Bonner ENTERED: 11/14/24 10:53 SP TYPE: ASP RAD OTHR DR: Dr. Fabricio Lemos MD Tissues: Liver, NOS Procedures: FNA Specimen Adequacy Immunohistochemical Stains Special Stain Group II Surgery Specimen Level IV Surgery Specimen Level V Imprint (control) IHC Stain ADDITIONAL HEADER OPERATION: CT guided liver biopsy PRE-OP DIAGNOSIS: Liver masses TISSUE SUBMITTED: 18 gauge x 5 cores, 1 RPMI, flow cytometry MICROSCOPIC DIAGNOSIS Liver lesion, CT guided core biopsy: * Metastatic high-grade neuroendocrine carcinoma - see note. * No evidence of a B-cell or T-cell lymphoma by flow cytometry (performed by [facility]) - see comment. * Note: Review by a specialist thoracic pathologist at [facility] (intradepartmental consultation) is PENDING and an addendum will follow. * The history of a new lung/mediastinal mass is noted. The findings are compatible with pulmonary origin, however determination of a primary site requires correlation with clinical and imaging findings. Mr 11/17/2024 COMMENT The specimen is evaluated at the time of biopsy by Dr. Madden. Immediate Evaluation = Numerous lymphocytes mixed with large atypical cells noted. 1 core is submitted for flow cytometry. The specimen is sent to [facility] for flow cytometry, reviewed by Dr. Horton and the above diagnosis is rendered. The complete report is viewable in the patient's EMR. MICROSCOPIC DESCRIPTION Slides are reviewed. There are aggregates of neuroendocrine cells with modest cytoplasm demonstrating foci of necrosis in a background of fibrosis. There are 5 mitoses per high power field with a Ki67 proliferative index of 95% (as determined by manual immunohistochemistry). The IHC results support the diagnosis. Immunostains (IHC) utilized in the evaluation: CK7+ Chromogranin + Synaptophysin + Ki67q 95% (as determined by manual immunohistochemistry) CK20 neg CK5/6 neg P40 neg TTF-1 neg Napsin A neg ER neg DAWSON-3 neg PAX8 neg All stains matched controls reacted appropriately. GROSS DESCRIPTION Received in fixative is one container labeled with the patient's name and designated Liver lesion. The specimen consists of multiple fragments of manzo soft tissue that in aggregate measure 2 x 0.2 x 0.1cm. The specimen is totally submitted in one cassette. Two touch imprints are prepared at the time of core biopsy. One core is submitted for flow cytometry studies. 11/14/2024 TC:5 CPT:[id number]
--- NOTE | 2024-11-14 | ASPIGT_PTH ---
PATIENT: BUSHRA RODRIGEZ LOC: [facility] U#:[id number] AGE/SX: 69/F ROOM: [facility] RE11/12/[address]: Dr. Mae Horton DO : 1955 BED: 1 DIS: 11/15/2024 SPEC #: [id number] RECD: 11/14/24 10:52 STATUS: MAGDALENA STEPHENS #: [id number] CLAIRE: 11/14/24 00:[address]: Mae Horton DEPT: SURGICAL PATHOLOGY RECD BY: Jenny Bonner ENTERED: 11/14/24 10:53 SP TYPE: ASP RAD OTHR DR: Dr. Fabricio Lemos MD Tissues: Liver, NOS Procedures: FNA Specimen Adequacy Immunohistochemical Stains Special Stain Group II Surgery Specimen Level IV Surgery Specimen Level V Imprint (control) IHC Stain ADDITIONAL HEADER OPERATION: CT guided liver biopsy PRE-OP DIAGNOSIS: Liver masses TISSUE SUBMITTED: 18 gauge x 5 cores, 1 RPMI, flow cytometry MICROSCOPIC DIAGNOSIS Liver lesion, CT guided core biopsy: * Metastatic high-grade LARGE CELL neuroendocrine carcinoma - see note. * No evidence of a B-cell or T-cell lymphoma by flow cytometry (performed by [facility]) - see comment. * Note: Reviewed by a specialist thoracic pathologist at [facility] (intradepartmental consultation), Dr Demar Benitez, who agrees with the amended diagnosis of LARGE CELL NEUROENDOCINE CARCINOMA. * The history of a new lung/mediastinal mass is noted. The findings are compatible with pulmonary origin, however determination of a primary site requires correlation with clinical and imaging findings * Dr Marta Fernandez was informed of the amended diagnosis (phone cell) at 2:21 pm, 11/25/2024.. Mr 11/17/2024 COMMENT The specimen is evaluated at the time of biopsy by Dr. Madden. Immediate Evaluation = Numerous lymphocytes mixed with large atypical cells noted. 1 core is submitted for flow cytometry. The specimen is sent to [facility] for flow cytometry, reviewed by Dr. Horton and the above diagnosis is rendered. The complete report is viewable in the patient's EMR. MICROSCOPIC DESCRIPTION Slides are reviewed. There are aggregates of neuroendocrine cells with modest cytoplasm demonstrating foci of necrosis in a background of fibrosis. There are 5 mitoses per high power field with a Ki67 proliferative index of 95% (as determined by manual immunohistochemistry). The IHC results support the diagnosis. Immunostains (IHC) utilized in the evaluation: CK7+ Chromogranin + Synaptophysin + Ki67q 95% (as determined by manual immunohistochemistry) CK20 neg CK5/6 neg P40 neg TTF-1 neg Napsin A neg ER neg DAWSON-3 neg PAX8 neg All stains matched controls reacted appropriately. These tests were developed and their performance characteristics determined by [facility]. They may not have been cleared or approved by the U.S. Food and Drug Administration. The FDA has determined that such clearance or approval is not necessary. The above immunohistochemical/dualISH markers are ordered and reviewed by the Pathologist. GROSS DESCRIPTION Received in fixative is one container labeled with the patient's name and designated Liver lesion. The specimen consists of multiple fragments of manzo soft tissue that in aggregate measure 2 x 0.2 x 0.1cm. The specimen is totally submitted in one cassette. Two touch imprints are prepared at the time of core biopsy. One core is submitted for flow cytometry studies. 11/14/2024 TC:5 CPT:00541,86347,98142,88740d41
[2024-11-14] MEDS: Ketorolac 30 MG/ML Syringe IV ×3 (04:17→16:56)
[2024-11-14 05:33] LABS: Hematocrit 37.1 % (37-47); Mean Corp Hgb Conc 32.3 g/dL (32-36); Mean Corpuscular Hgb 28.8 pg (27.0-32.0); Platelet Count 275 K/mm3 (150-450); RBC Distribution Width CV 15.8 % (11.6-14.6); RBC Distribution Width SD 50.9 fl (35.1-43.9); Red Blood Count 4.17 M/mm3 (4.2-5.4); White Blood Count 7.2 K/mm3 (4.4-11.0)
[2024-11-14 05:56] LABS: Anion Gap 13 (5-15); BUN 10 mg/dL (4-19); BUN/Creat Ratio 10.6 RATIO (10-20); Calcium 10.1 mg/dL (7.6-11.0); Carbon Dioxide 20.3 mmol/L (22.0-29.0); Chloride 105 mmol/L (96-108); Creatinine, Serum 0.91 mg/dL (0.70-1.20); EST Glomerular Filtration Rate 68 (>60); Estimated Creatinine Clearance 54.89 ml/min; Glucose 95 mg/dL (70-99); Potassium 4.2 mmol/L (3.3-5.1); Sodium Level 139 mmol/L (133-145)
[2024-11-14] MEDS: oxyCODONE 5 MG Tablet PO ×4 (08:33→22:09)
[2024-11-14] MEDS: Pantoprazole Sodium 40 MG in 0.9% Normal Saline (100mL MB+) 100 ML 330 MG IV ×2 (08:45→21:15)
--- NOTE | 2024-11-14 08:46 | CASEMGMT ---
Met with patient to complete JACKSON form. JACKSON form explained to patient who voiced understanding and signed form. Original form placed in pt?s chart and copy provided to patient. Rosario Mercado, Discharge Planning Asst
--- NOTE | 2024-11-14 09:00 | CT_ITS ---
EXAM: CT-GUIDED LIVER BIOPSY CLINICAL HISTORY: HEPATIC METASTATIC DISEASE. RECENT PET SHOWS HYPERMETABOLIC OSSEOUS LESIONS COMPATIBLE WITH METASTATIC DISEASE. COMPARISON: CT abdomen pelvis dated 11/12/2024. CT PET dated 11/11/2024. TECHNIQUE: The patient's history and physical were reviewed. Informed consent was obtained and the patient was given the opportunity to ask questions concerning the procedure. The patient was then placed on the gantry table in the CT suite. Axial scans of 2.5 mm slice thicknesses were obtained through the liver with the localization grid in place. The site of biopsy was documented on the patient's skin with an indelible marker. Conscious sedation was administered with 1 mg of Versed and 25 mcg of Fentanyl. Procedural monitoring was performed by the radiology nurse. Sterile preparation of the skin was performed in the usual fashion. Local anesthesia was accomplished with 15 mL of Lidocaine 1%. Coaxial technique was utilized. The 18 gauge, 4.5 inch guiding needle was advanced into the liver and scanning was performed to document the position. Core biopsy was then performed with a CorVocet, 19 gauge core biopsy needle. Five (5) specimens were obtained and evaluated by the pathologist Dr. Madden who was present in the CT suite. Adequate specimens were obtained. The biopsy needles were removed with hemostasis occurring following direct manual pressure to the biopsy site. Sterile dressing was applied. Post biopsy imaging shows no focal hemorrhage at the site of biopsy or other new abnormalities. Procedure start time 1006 hours. Procedure end time 1036 hours. FINDINGS: Adequate specimens for pathologic evaluation. CT/Biopsy/Inj or Needle Placement IMPRESSION: 1. Successful biopsy of liver lesion in the right hepatic lobe under CT [place]. 2. Final pathology results are pending. 3. Thank you for this referral. Reading Location: [place] [address]
[2024-11-14] MEDS: oxyCODONE HCl Cr 10 MG Tablet PO ×2 (09:06→21:14)
[2024-11-14] MEDS: Midazolam 2 MG/2 ML Syringe IV (10:06)
[2024-11-14] MEDS: fentaNYL 100 MCG/2 ML Ampul IV (10:09)
[2024-11-14] MEDS: 0.9% Saline Lock 10 ML Syringe IV ×2 (10:11→10:50)
[2024-11-14] MEDS: Lidocaine 2% (20 ml mdv) 20 ML Vial INFILT (10:25)
--- NOTE | 2024-11-14 13:30 | CASEMGMT ---
ROSANA HE noted hospitalist note that pt is wanting palliative care. ROSANA HE into pt room, pt states she would like to have a referral made for palliative care. Pt screened with [facility] palliative care screening tool. Pt met criteria, order received. Emailed palliative referral.
[2024-11-14] MEDS: Gabapentin 400 MG Capsule PO ×2 (14:01→21:15)
--- NOTE | 2024-11-14 16:39 | DS.PCM_ITS ---
Providers Date of Admission: 11/12/24 Date of Discharge: 11/14/24 Primary Care Physician: Dr. Fabricio Lemos MD Reason For Visit: INTRACTABLE ABDOMINAL PAIN Diagnosis Discharge Diagnosis (1) Elevated LFTs: Status: Acute Code(s): R79.89 - Other specified abnormal findings of blood chemistry (2) Epigastric pain: Status: Acute Code(s): R10.13 - Epigastric pain (3) Intractable abdominal pain: Status: Acute Code(s): R10.9 - Unspecified abdominal pain (4) Metastasis to liver: Status: Acute Code(s): C78.7 - Secondary malignant neoplasm of liver and intrahepatic bile duct (5) Elevated lipase: Status: Acute Code(s): R74.8 - Abnormal levels of other serum enzymes Medications at Discharge Home Medications levothyroxine 25 mcg tablet 25 mcg PO DAILY thyroid 11/03/17 gabapentin 400 mg capsule 400 mg PO TID nerve pain 07/16/20 omeprazole 40 mg capsule,delayed release 40 mg PO DAILY gerd ##0 08/17/20 Disability Placard #1 ea 09/15/20 potassium citrate 10 mEq (1,080 mg) tablet,extended release 20 meq PO DAILY potassium 01/26/22 albuterol sulfate 90 mcg/actuation aerosol inhaler 2 puff inhalation Q4H PRN shortness of breath or wheezing 06/13/23 calcium 600 mg capsule 600 mg PO DAILY 05/28/24 fluticasone propionate 50 mcg/actuation nasal spray,suspension (Flonase Allergy Relief) 1 spray intranasal DAILY PRN nasal congestion 05/28/24 hydrocodone-acetaminophen 5-325mg 5mg-325mg 1 - 1.5 tab PO TID pain 05/28/24 cholecalciferol (vitamin D3) 25 mcg (1,000 unit) capsule (Vitamin D3) 25 mcg PO DAILY 11/12/24 losartan 25 mg tablet 25 mg PO DAILY 11/12/24 docusate sodium 100 mg capsule 100 mg PO BID #60 caps 11/14/24 oxycodone 10 mg tablet,crush resistant,extended release 12 hr (OxyContin) 10 mg PO BID 30 days #60 tabs 11/14/24 oxycodone 5 mg tablet 5 mg PO Q4H PRN PRN Pain Score 4-10 30 days #180 tabs 11/14/24 Hospital Course Procedures - (CT Abdomen and Pelvis/CT biopsy) Summary of Care Provided Minutes Spent on Discharge: 38 Hospital Course: BUSHRA RODRIGEZ, is a 69 F who presented to the emergency department at [facility] on 11/12/2024 with a chief complaint of abdominal pain. The patient has had generalized weakness, lightheadedness and near syncope for about a month or more. She was recently diagnosed with a lung mass and is undergoing workup. A PET scan was performed yesterday. She reported she was having worsening right upper quadrant to epigastric pain today. She has had some nausea with no vomiting. She also had some rectal bleeding which she has intermittently from internal hemorrhoids however she states that it has been a little bit more than typical for her. She is unaware of her PET results at the time of admission. She does have a history of tobacco abuse and quit in 2016. She had significant secondhand exposure as well. Vital signs on presentation showed temperature of 98.7, heart rate 90, respiratory 18, blood pressure is 131/72 and pulse ox is 90% on room air. Her CBC is unremarkable. Coags were normal. Chemistry panel shows normal electrolytes with a slightly reduced serum bicarb of 21.8, normal serum creatinine but elevated LFTs with an AST of 529, ALT of 142, alk phos of 494. Her lipase is elevated at 154. Her UA is unremarkable for infection but is consistent with some mild dehydration and has ketones. CT of the abdomen/pelvis with IV contrast was performed in the emergency department shows hepatomegaly with diffuse hepatic metastasis. PET scan from yesterday was reviewed and shows hypermetabolic left upper lobe pulmonary nodule with FDG avid mediastinal and left hilar lymphadenopathy suggestive of primary lung cancer with regional lymph node involvement, hepatomegaly was noted without hypermetabolic lesions however visualization of known hepatic metastasis is noted to be limited by FDG and numerous axial and appendicular hypermetabolic osseous lesions compatible with osseous metastatic disease were noted as well. She was admitted to the floor and placed on pain medication to improve pain control and biopsies were able to be obtained of her liver on 11/14/2024. We have extensive discussion with her overall plan of care and she was amenable to palliative care. She is currently enrolled in pain management and I did not ask her to make sure she discusses with Dr. Johnson that she was placed on scheduled narcotics by us for her abdominal pain and she has follow-up with palliative care. With ongoing narcotic use and discharge we have advised her to take MiraLAX as needed. She was having loose stool on presentation however she has not had any last 24 hours and I suspect this is probably related to her narcotic use. She has follow-up on November 19, 2024 with oncology and hopefully at that time biopsies will be resulted in plan of care for treatment of her malignancy can be pursued. She was able to be discharged home with prescriptions for pain on 11/14/2024. Discharge diagnoses: Intractable abdominal pain and nausea secondary to metastatic liver lesions Diarrhea-resolved Hematochezia-resolved Elevated lipase Transaminitis Lung mass with osseous and liver metastatic disease -Highly suspect lung primary Severe malnutrition COPD Neuropathy Hypertension GERD Hypothyroidism History of tobacco abuse Physical Exam Const alert, oriented x3, no apparent distress and average body habitus; Negative for healthy appearing or well nourished Constitutional Narrative: Older, white female, appears comfortable at this time, sitting up in bed, does not appear toxic, very pleasant General Appearance: cooperative, comfortable, well kempt and well developed Exam Limitations: no limitations HEENT normocephalic, head/scalp atraumatic, hearing grossly normal bilaterally and moist oral mucous membranes HEENT Narrative: Mallampati 2, no thrush Eyes EOMs intact bilaterally and conjunctivae normal Eyes Narrative: No scleral icterus Neck supple Neck Narrative: Trachea midline, no thyroid enlargement Resp normal respiratory effort, no retractions, no use of accessory muscles and clear to auscultation bilaterally Resp Narrative: Diffusely diminished but clear Auscultation: Negative for rales, rhonchi or wheezes Cardio regular rate, regular rhythm, S1 normal heart sound, S2 normal heart sound, no murmurs, no rub, no gallops and no clicks GI GI Narrative: Hepatomegaly noted, mixing machine tender right upper quadrant and less so in epigastrium, bowel sounds are normal, abdomen is soft, nondistended Extremity no clubbing, cyanosis or edema Extremity Narrative: Pedal pulses are 2+ Skin skin turgor normal, no jaundice, no petechiae and no mottling Neuro oriented x3, moves all extremities and no focal motor deficits Neuro Narrative: Minimal generalized weakness with no focal deficits noted Speech: speech normal Psych affect normal Psych Narrative: Very pleasant, interacts appropriately Medical Records Data Medical Nutrition Assessment Dietitian: Malnutrition Criteria Met Start: 11/13/24 15:20 Freq: Status: Active Protocol: Document 11/13/24 15:45 LO (Rec: 11/13/24 15:45 LO [id number]) Nutrition Malnutrition Evidence of Yes Malnutrition Exists Malnutrition (severe Chronic ): Evidenced By Suboptimal Energy Intake (Severe),Weight Loss (Severe) Intake Problem Inadequate Oral Intake Status Inactive Problem Clinical Problem Chronic Disease or Condition Related Malnutrition Etiology severe related to suboptimal appetite Signs/Symptoms as evidenced by 10.3% weight loss in ~2.5 months and PO intakes meeting <75% of estimated nutrition needs x2.5 months Status Active Problem Unintended Weight Loss Status Inactive Problem Recommendation Dietitian Continue Regular diet to optimize oral intakes. Recommendations/ Continue 120mL Ensure plus high protein 4x daily with Changes medpass to provide supplemental energy. Will discontinue 120mL Ensure Clear TID with medpass. Weight / BMI Weight Weight: 72.5 kg Body Mass Index (BMI) 28.3 ABG / Lab / Microbiology Data 11/14/24 04:27 11/14/24 04:27 Laboratory: Laboratory Results - last 24 hr 11/14/24 04:27: WBC 7.2, RBC 4.17 L, Hgb 12.0, Hct 37.1, MCV 89.0, MCH 28.8, MCHC 32.3, RDW Std Deviation 50.9 H, RDW Coeff of Brittanie 15.8 H, Plt Count 275, MPV 12.0, Sodium 139, Potassium 4.2, Chloride Direct 105, Carbon Dioxide 20.3 L, Anion Gap 13, BUN 10, Creatinine 0.91, Estim Creat Clear Calc 54.89, Est GFR (MDRD) Non-Af 68, BUN/Creatinine Ratio 10.6, Glucose 95, Calcium 10.1 Microbiology: Microbiology 11/12/24 18:37 Stool Enteric Bacteriology - Final 11/12/24 18:37 Stool Stool Occult Blood ([facility]WELL) - Final Occult Blood Positive Radiography Diagnostic Testing: Radiology Impression Biopsy CT 11/14/24 09:00 IMPRESSION: 1. Successful biopsy of liver lesion in the right hepatic lobe under CT guidance. 2. Final pathology results are pending. 3. Thank you for this referral. Reading Location: [place] [address] D/C Instructions Discharge Diet: No restrictions Discharge Activity: May Not Shower (Do not get biopsy site wet for 3 to 5 days okay to bathe and keep the area dry or sponge bath) DC O2, CPAP, BIPAP Needs Home O2 Discharge instructions: No Meaningful Use Info Meaningful Use Meaningful Use Diagnoses (Choose all that apply): None applicable Ischemic Stroke Statin Dosing Therapy Reference: STATIN DOSE THERAPY REFERENCE: * Patients > 75 years receive moderate or high dose statin therapy. * Patients 75 years or YOUNGER should receive HIGH intensity statin dose unless contraindicated. You will be required to document reason for non-treatment if statin daily dose does not meet guidelines. HIGH DOSE STATIN THERAPY DAILY Atorvastatin > than or = to 40 mg Rosuvastatin > than or = to 20 mg Amlodipine + Atorvastatin > than or = to 2.5/40 mg Ezetimibe + Simvastatin 10/80 mg Simvastatin 80mg Discharge Plan Admission Admit Date/Time: 11/12/24 12:58 Primary Reason for Your Visit: Abdominal pain Attending Provider: Mae Horton Primary Care Provider: Fabricio Lemos Instructions Patient Instructions: PAM WAYNE Biopsy Liver Ajay, PAM RN Procedural Sedation Discharge Orders/Prescriptions Prescriptions: New docusate sodium 100 mg Capsule 100 mg PO BID Qty: 60 0RF Rx Instructions: Hold for diarrhea oxycodone 5 mg Tablet 5 mg PO Q4H PRN PRN (Reason: Pain Score 4-10) 30 Days Qty: 180 0RF oxycodone [OxyContin] 10 mg Tablet,Oral Only,Ext.Rel.12 Hr 10 mg PO BID 30 Days Qty: 60 0RF Continued (DME) Disability Placard See Rx Instructions .Route .MEDSUPPLY Qty: 1 0RF Rx Instructions: Expires 09/09/2025 albuterol sulfate 90 mcg/actuation HFA aerosol inhaler 2 puff inhalation Q4H PRN (Reason: shortness of breath or wheezing) levothyroxine 25 MCG tablet 25 mcg PO DAILY gabapentin 400 MG capsule 400 mg PO TID omeprazole 40 MG capsule,delayed release(DR/EC) 40 mg PO DAILY Qty: 0 0RF potassium citrate 10 mEq (1,080 mg) tablet extended release 20 meq PO DAILY calcium 600 mg capsule 600 mg PO DAILY fluticasone propionate [Flonase Allergy Relief] 50 mcg/actuation spray,suspension 1 spray intranasal DAILY PRN (Reason: nasal congestion) Rx Instructions: administer into each nostril hydrocodone-acetaminophen 5-325 mg tablet 1 - 1.5 tab PO TID cholecalciferol (vitamin D3) [Vitamin D3] 25 mcg (1,000 unit) capsule 25 mcg PO DAILY losartan 25 mg tablet 25 mg PO DAILY Referrals / Follow Up: [facility] [Other] Fabricio Lemos MD [Primary Care Provider] - In 1 Week Sherice Fernandez MD [Med Staff - Active Staff] - 11/19/24 Disposition Disposition (needs filled in before D/C Order can be placed): Home, Self Care Charges/Coding Visit Charges Inpatient E&M: 78536 Disch Hosp
--- NOTE | 2024-11-14 18:42 | PCM.HOSP.N ---
Hospitalist Note Oxy long-acting was $400 for patient to fill and pharmacy could not give us any other options. Will have to wait for discharge tomorrow until can get for assistance from case management. Patient was medically ready for discharge.
[2024-11-15] MEDS: Ketorolac 30 MG/ML Syringe IV ×2 (01:52→08:18)
[2024-11-15] MEDS: 0.9% Saline Lock 10 ML Syringe IV ×2 (01:53→08:18)
[2024-11-15 02:00] VITALS: BP 139/79; PULSE 86; RESP 18; TEMP 36.9; O2SAT 92
[2024-11-15] MEDS: oxyCODONE 5 MG Tablet PO ×2 (05:04→12:24)
[2024-11-15] MEDS: Gabapentin 400 MG Capsule PO (05:04)
[2024-11-15] MEDS: Levothyroxine 25 MCG TABLET PO (05:05)
[2024-11-15 05:07] VITALS: BMI 30.2
[2024-11-15 08:00] VITALS: BP 150/84; PULSE 81; RESP 18; TEMP 36.6; O2SAT 96
--- NOTE | 2024-11-15 08:43 | CASEMGMT ---
Addendum entered by Segundo Lindquist 11/15/24 11:05: Dr Horton sent Rx's to [facility]. Call placed to Magdalena, pharmacist @ [facility]. She states the Oxycontin went through insurance and also her MP3 plan. There will be no cost to the patient. Dr Horton made aware. RNEstella, made aware and will let pt know. Original Note: ROSANA HE NOTE: ROSANA HE notified by Dr Horton that she placed discharge order yesterday, Rx had been sent to [facility] pharmacy for Oxycontin ER 10 mg BID, cost for pt ~$400. Discharge was cancelled. Call placed to [facility] Rx help line. This medication requires a PA. ROSANA HE was tx'd to PA line. PA obtained. , kenroy from 10/16/24-11/15/25. Call placed to [facility] to notify them PA has been obtained. They do not have Oxycontin ER 10 mg in stock. Call placed to [facility] pharmacy and spoke w/Josephine. They also do not have this in stock. Call placed to [facility] pharmacy. They do have this in stock. ROSANA HE spoke w/pt who is agreeable to getting this @ [facility]. Dr Horton made aware and states will send Rx to [facility]. Elisabeth BERNAL RN, CM
[2024-11-15] MEDS: oxyCODONE HCl Cr 10 MG Tablet PO (10:39)
[2024-11-15] MEDS: Pantoprazole Sodium 40 MG in 0.9% Normal Saline (100mL MB+) 100 ML 330 MG IV (10:40)
[2024-11-15] MEDS: Losartan Potassium 50 MG Tablet PO (10:40)
--- NOTE | 2024-11-15 12:05 | PCM.DC.SUM ---
Providers Date of Admission: 11/12/24 Date of Discharge: 11/15/24 Primary Care Physician: Dr. Fabricio Lemos MD Reason For Visit: INTRACTABLE ABDOMINAL PAIN Diagnosis Discharge Diagnosis (1) Elevated LFTs: Status: Acute Code(s): R79.89 - Other specified abnormal findings of blood chemistry (2) Epigastric pain: Status: Acute Code(s): R10.13 - Epigastric pain (3) Intractable abdominal pain: Status: Acute Code(s): R10.9 - Unspecified abdominal pain (4) Metastasis to liver: Status: Acute Code(s): C78.7 - Secondary malignant neoplasm of liver and intrahepatic bile duct (5) Elevated lipase: Status: Acute Code(s): R74.8 - Abnormal levels of other serum enzymes Medications at Discharge Home Medications levothyroxine 25 mcg tablet 25 mcg PO DAILY thyroid 11/03/17 gabapentin 400 mg capsule 400 mg PO TID nerve pain 07/16/20 omeprazole 40 mg capsule,delayed release 40 mg PO DAILY gerd ##0 08/17/20 Disability Placard #1 ea 09/15/20 potassium citrate 10 mEq (1,080 mg) tablet,extended release 20 meq PO DAILY potassium 01/26/22 albuterol sulfate 90 mcg/actuation aerosol inhaler 2 puff inhalation Q4H PRN shortness of breath or wheezing 06/13/23 calcium 600 mg capsule 600 mg PO DAILY supplement 05/28/24 fluticasone propionate 50 mcg/actuation nasal spray,suspension (Flonase Allergy Relief) 1 spray intranasal DAILY PRN nasal congestion 05/28/24 hydrocodone-acetaminophen 5-325mg 5mg-325mg 1 - 1.5 tab PO TID pain 05/28/24 cholecalciferol (vitamin D3) 25 mcg (1,000 unit) capsule (Vitamin D3) 25 mcg PO DAILY vitamin 11/12/24 losartan 25 mg tablet 25 mg PO DAILY blood pressure 11/12/24 docusate sodium 100 mg capsule 100 mg PO BID #60 caps 11/14/24 oxycodone 10 mg tablet,crush resistant,extended release 12 hr (OxyContin) 10 mg PO BID 30 days #60 tabs 11/15/24 oxycodone 5 mg tablet 5 mg PO Q4H PRN pain 30 days #120 tabs 03/01/25 Hospital Course Operations None Procedures - (CT abdomen pelvis/CT guided biopsy of the liver) Summary of Care Provided Minutes Spent on Discharge: 36 Hospital Course: BUSHRA RODRIGEZ, is a 69 F who presented to the emergency department at [facility] on 11/12/2024 with a chief complaint of abdominal pain. The patient has had generalized weakness, lightheadedness and near syncope for about a month or more. She was recently diagnosed with a lung mass and is undergoing workup. A PET scan was performed yesterday. She reported she was having worsening right upper quadrant to epigastric pain today. She has had some nausea with no vomiting. She also had some rectal bleeding which she has intermittently from internal hemorrhoids however she states that it has been a little bit more than typical for her. She is unaware of her PET results at the time of admission. She does have a history of tobacco abuse and quit in 2016. She had significant secondhand exposure as well. Vital signs on presentation showed temperature of 98.7, heart rate 90, respiratory 18, blood pressure is 131/72 and pulse ox is 90% on room air. Her CBC is unremarkable. Coags were normal. Chemistry panel shows normal electrolytes with a slightly reduced serum bicarb of 21.8, normal serum creatinine but elevated LFTs with an AST of 529, ALT of 142, alk phos of 494. Her lipase is elevated at 154. Her UA is unremarkable for infection but is consistent with some mild dehydration and has ketones. CT of the abdomen/pelvis with IV contrast was performed in the emergency department shows hepatomegaly with diffuse hepatic metastasis. PET scan from yesterday was reviewed and shows hypermetabolic left upper lobe pulmonary nodule with FDG avid mediastinal and left hilar lymphadenopathy suggestive of primary lung cancer with regional lymph node involvement, hepatomegaly was noted without hypermetabolic lesions however visualization of known hepatic metastasis is noted to be limited by FDG and numerous axial and appendicular hypermetabolic osseous lesions compatible with osseous metastatic disease were noted as well. She was admitted to the floor and placed on pain medication to improve pain control and biopsies were able to be obtained of her liver on 11/14/2024. We have extensive discussion with her overall plan of care and she was amenable to palliative care. She is currently enrolled in pain management and I did not ask her to make sure she discusses with Dr. Johnson that she was placed on scheduled narcotics by us for her abdominal pain and she has follow-up with palliative care. With ongoing narcotic use and discharge we have advised her to take MiraLAX as needed. She was having loose stool on presentation however she has not had any last 24 hours and I suspect this is probably related to her narcotic use. She has follow-up on November 19, 2024 with oncology and hopefully at that time biopsies will be resulted in plan of care for treatment of her malignancy can be pursued. Patient was initially discharged on 11/14/2024 to home as she was stable however her pharmacy was unable to fill the OxyContin due to the requirement of her precertification. I discussed with case management on the a.m. of 11/15/2024 and we were able to get her medication filled without difficulty after pre-CERT was obtained. She was able to be discharged now on 11/16/2023 to home. Discharge diagnoses: Intractable abdominal pain and nausea secondary to metastatic liver lesions Diarrhea-resolved Hematochezia-resolved Elevated lipase Transaminitis Lung mass with osseous and liver metastatic disease -Highly suspect lung primary Severe malnutrition COPD Neuropathy Hypertension GERD Hypothyroidism History of tobacco abuse Physical Exam Const alert, oriented x3, no apparent distress and average body habitus; Negative for healthy appearing or well nourished Constitutional Narrative: Older, white female, appears comfortable at this time, sitting up in bed, does not appear toxic, very pleasant General Appearance: cooperative, comfortable, well kempt and well developed Exam Limitations: no limitations HEENT normocephalic, head/scalp atraumatic, hearing grossly normal bilaterally and moist oral mucous membranes Eyes EOMs intact bilaterally and conjunctivae normal Eyes Narrative: No scleral icterus Neck supple Neck Narrative: Trachea midline, no thyroid enlargement Resp normal respiratory effort, no retractions, no use of accessory muscles and clear to auscultation bilaterally Resp Narrative: Diffusely diminished but clear Auscultation: Negative for rales, rhonchi or wheezes Cardio regular rate, regular rhythm, S1 normal heart sound, S2 normal heart sound, no murmurs, no rub, no gallops and no clicks GI GI Narrative: Hepatomegaly noted, utility tender carding right upper quadrant and less so in epigastrium, bowel sounds are normal, abdomen is soft, nondistended Extremity no clubbing, cyanosis or edema Extremity Narrative: Pedal pulses are 2+ Skin skin turgor normal, no jaundice, no petechiae and no mottling Neuro oriented x3, moves all extremities and no focal motor deficits Neuro Narrative: Minimal generalized weakness with no focal deficits noted Speech: speech normal Psych affect normal Psych Narrative: Very pleasant, interacts appropriately Medical Records Data Medical Nutrition Assessment Dietitian: Malnutrition Criteria Met Start: 11/13/24 15:20 Freq: Status: Active Protocol: Document 11/13/24 15:45 LO (Rec: 11/13/24 15:45 [id number]) Nutrition Malnutrition Evidence of Yes Malnutrition Exists Malnutrition (severe Chronic ): Evidenced By Suboptimal Energy Intake (Severe),Weight Loss (Severe) Intake Problem Inadequate Oral Intake Status Inactive Problem Clinical Problem Chronic Disease or Condition Related Malnutrition Etiology severe related to suboptimal appetite Signs/Symptoms as evidenced by 10.3% weight loss in ~2.5 months and PO intakes meeting <75% of estimated nutrition needs x2.5 months Status Active Problem Unintended Weight Loss Status Inactive Problem Recommendation Dietitian Continue Regular diet to optimize oral intakes. Recommendations/ Continue 120mL Ensure plus high protein 4x daily with Changes medpass to provide supplemental energy. Will discontinue 120mL Ensure Clear TID with medpass. Weight / BMI Weight Weight: 77.3 kg Body Mass Index (BMI) 30.2 ABG / Lab / Microbiology Data 11/14/24 04:27 11/14/24 04:27 Microbiology: Microbiology 11/12/24 18:37 Stool Enteric Bacteriology - Final 11/12/24 18:37 Stool Stool Occult Blood ([facility]) - Final Occult Blood Positive D/C Instructions Discharge Diet: No restrictions DC O2, CPAP, BIPAP Needs Home O2 Discharge instructions: No Meaningful Use Info Meaningful Use Meaningful Use Diagnoses (Choose all that apply): None applicable Ischemic Stroke Statin Dosing Therapy Reference: STATIN DOSE THERAPY REFERENCE: * Patients > 75 years receive moderate or high dose statin therapy. * Patients 75 years or YOUNGER should receive HIGH intensity statin dose unless contraindicated. You will be required to document reason for non-treatment if statin daily dose does not meet guidelines. HIGH DOSE STATIN THERAPY DAILY Atorvastatin > than or = to 40 mg Rosuvastatin > than or = to 20 mg Amlodipine + Atorvastatin > than or = to 2.5/40 mg Ezetimibe + Simvastatin 10/80 mg Simvastatin 80mg Discharge Plan Admission Admit Date/Time: 11/12/24 12:58 Primary Reason for Your Visit: Abdominal pain Attending Provider: Mae Horton Primary Care Provider: Fabricio Lemos Instructions Patient Instructions: PAM RN Biopsy Liver Dc, PAM WAYNE Procedural Sedation Additional Instructions / Restrictions: 1. Okay to take Tylenol 1000 mg 3 times daily scheduled but do not exceed this dose 2. Okay to take as needed ibuprofen 800 mg every 8 hours but please take after eating and try to avoid this on a regular basis 3. Please follow-up with pain management as previously scheduled and be sure to let Dr. Johnson know that palliative care will be involved in your care as well 4. Palliative care should be in contact with you Discharge Orders/Prescriptions Prescriptions: New docusate sodium 100 mg Capsule 100 mg PO BID Qty: 60 0RF Rx Instructions: Hold for diarrhea oxycodone [OxyContin] 10 mg tablet,oral only,ext.rel.12 hr 10 mg PO BID 30 Days Qty: 60 0RF oxycodone 5 mg tablet 5 mg PO Q4H PRN (Reason: pain) 30 Days Qty: 120 0RF Continued (DME) Disability Placard See Rx Instructions .Route .MEDSUPPLY Qty: 1 0RF Rx Instructions: Expires 09/09/2025 albuterol sulfate 90 mcg/actuation HFA aerosol inhaler 2 puff inhalation Q4H PRN (Reason: shortness of breath or wheezing) levothyroxine 25 MCG tablet 25 mcg PO DAILY gabapentin 400 MG capsule 400 mg PO TID omeprazole 40 MG capsule,delayed release(DR/EC) 40 mg PO DAILY Qty: 0 0RF potassium citrate 10 mEq (1,080 mg) tablet extended release 20 meq PO DAILY calcium 600 mg capsule 600 mg PO DAILY fluticasone propionate [Flonase Allergy Relief] 50 mcg/actuation spray,suspension 1 spray intranasal DAILY PRN (Reason: nasal congestion) Rx Instructions: administer into each nostril hydrocodone-acetaminophen 5-325 mg tablet 1 - 1.5 tab PO TID cholecalciferol (vitamin D3) [Vitamin D3] 25 mcg (1,000 unit) capsule 25 mcg PO DAILY losartan 25 mg tablet 25 mg PO DAILY Referrals / Follow Up: [facility] [Other] Fabricio Lemos MD [Primary Care Provider] - In 1 Week Sherice Fernandez MD [Med Staff - Active Staff] - 11/19/24 Disposition Disposition (needs filled in before D/C Order can be placed): Home, Self Care Charges/Coding Visit Charges Inpatient E&M: 86158 Disch Hosp >30min
[2024-11-15 12:29] VITALS: BP 144/78; PULSE 70; RESP 18; TEMP 37.1; O2SAT 98
== END 2024-11-15 12:44 | disposition home or self-care (01) ==
LOC: ED 13:00 → PCU 13:16
PROVIDERS: Admitting Provider Internal Medicine; Emergency Provider Emergency Medicine; PCP Family Medicine; Visit Provider Internal Medicine
DX: G89.3 Neoplasm related pain (acute) (chronic) (principal); C78.7 Secondary malignant neoplasm of liver and intrahepatic bile duct; J44.9 Chronic obstructive pulmonary disease, unspecified; R79.89 Other specified abnormal findings of blood chemistry; R74.01 Elevation of levels of liver transaminase levels; Z87.891 Personal history of nicotine dependence; K64.8 Other hemorrhoids; R91.1 Solitary pulmonary nodule; E78.00 Pure hypercholesterolemia, unspecified; R59.0 Localized enlarged lymph nodes; I10 Essential (primary) hypertension; Z86.16 Personal history of COVID-19; G62.9 Polyneuropathy, unspecified; E43 Unspecified severe protein-calorie malnutrition; K21.9 Gastro-esophageal reflux disease without esophagitis; Z51.5 Encounter for palliative care; E03.9 Hypothyroidism, unspecified; Z68.28 Body mass index [BMI] 28.0-28.9, adult; Z79.899 Other long term (current) drug therapy; Z79.890 Hormone replacement therapy
CPT/HCPCS: 47000; 36415; 74177; 77012; 80048; 80053; 81001; 82274; 83690; 83735; 84100; 84443; 85025; 85027; 85610; 85730; 87506; 88172; 88305; 88307; 88313; 88341; 88342; 93005; 94668; 96361; 96365; 96366; 96374; 96375; 96376; 97802; 99156; 99157; 99221; 99284; Q9967; A4216; G0378; J2405

== ENCOUNTER 2024-11-23 15:39 | Emergency (ER) | payer MEDICARE, SELFPAY ==
[2024-11-23 15:39] VITALS: BP 160/85; PULSE 96; RESP 17; TEMP 36.4; O2SAT 93
--- NOTE | 2024-11-23 16:15 | EX.ED.DYSGE1 ---
HPI <SABRINA Abel - Last Filed: 11/23/24 18:17> History of Present Illness Chief Complaint: Weakness Narrative Narrative: 69-year-old female was recently found to have lung and liver masses. During a recent admission for intractable abdominal pain she had PET scan findings suggestive of primary lung cancer with hepatic and osseous metastasis. She was discharged on 11/15 with palliative care. She is taking OxyContin 10 mg twice a day and has oxycodone 5 mg to take every 4 hours as needed and she has been taking it every 4 hours. She still has ongoing abdominal pain and nausea despite using Zofran. She occasionally vomits. She keeps down sips of fluid and a few bites of food. She is taking a stool softener and reports daily bowel movements. No hematemesis. No melena or hematochezia. PFS <SABRINA Abel - Last Filed: 11/23/24 18:17> [facility] Medical History Loss of hearing Wears glasses Wears dentures Post-menopausal Thyroid disease Arthritis High cholesterol DVT (deep venous thrombosis) Injury of back Migraine headache Syncope Difficulty chewing History of hiatal hernia History of ulceration History of diverticulitis Gastric reflux Former smoker Asthma CPAP (continuous positive airway pressure) dependence Leg cramps Shortness of breath on exertion History of pain when walking Hypertension Heart murmur History of echocardiogram History of stress test Cardiology follow-up encounter Bradycardia Chronic respiratory failure with hypoxia Smoking greater than 40 pack years ARMANDO (obstructive sleep apnea) Pulmonary hypertension Bronchiectasis History of staph infection HTN (hypertension) Hypoxia COVID-19 Home Medications ?Medication ?Instructions ?Recorded ?Last Taken ?Type levothyroxine 25 mcg tablet 25 mcg PO DAILY thyroid 11/03/17 06/02/24 History gabapentin 400 mg capsule 400 mg PO TID nerve pain 07/16/20 06/02/24 History omeprazole 40 mg capsule,delayed 40 mg PO DAILY gerd ##0 08/17/20 06/02/24 Rx release Disability Placard #1 ea 09/15/20 Unknown Rx potassium citrate 10 mEq (1,080 20 meq PO DAILY potassium 01/26/22 Unknown History mg) tablet,extended release albuterol sulfate 90 mcg/actuation 2 puff inhalation Q4H PRN 06/13/23 Unknown History aerosol inhaler shortness of breath or wheezing calcium 600 mg capsule 600 mg PO DAILY supplement 05/28/24 Unknown History fluticasone propionate 50 1 spray intranasal DAILY PRN nasal 05/28/24 Unknown History mcg/actuation nasal congestion spray,suspension (Flonase Allergy Relief) hydrocodone-acetaminophen 5-325mg 1 - 1.5 tab PO TID pain 05/28/24 06/01/24 History 5mg-325mg cholecalciferol (vitamin D3) 25 25 mcg PO DAILY vitamin 11/12/24 Unknown History mcg (1,000 unit) capsule (Vitamin D3) losartan 25 mg tablet 25 mg PO DAILY blood pressure 11/12/24 Unknown History docusate sodium 100 mg capsule 100 mg PO BID #60 caps 11/14/24 Unknown Rx oxycodone 10 mg tablet,crush 10 mg PO BID 30 days #60 tabs 11/15/24 Unknown Rx resistant,extended release 12 hr (OxyContin) oxycodone 5 mg tablet 5 mg PO Q4H PRN pain 30 days #120 11/15/24 Unknown Rx tabs Allergy/AdvReac Type Severity Reaction Status Date / Time DAVID Inhibitors Allergy Rash Verified 11/23/24 15:41 codeine Allergy Vomiting Verified 11/23/24 15:41 walnut Allergy Food Verified 11/23/24 15:41 Allergy prednisone AdvReac Other Verified 11/23/24 15:41 Wwmmicb-HSC-NzY Reductase AdvReac cramps Verified 11/23/24 15:41 Inhibitor (Pfonraw-Fhz-Ocb Reductase Inhibitor) Family History Mother Cancer Hx Lung CA. Father Cancer Hx Lung CA. Surgical History Hx of right cataract extraction Hx of left cataract extraction Hx of breast reconstruction Hx of foot surgery Hx of surgical amputation of finger Hx of elbow surgery History of carpal tunnel surgery Hx of vein stripping History of cholecystectomy History of back surgery History of eye surgery History of breast biopsy History of tubal ligation History of History of appendectomy History of tonsillectomy Social History household members: spouse Smoking Status: Former smoker quit date: 08/17/16 Tobacco: How many years used: 45 ROS <SABRINA Abel - Last Filed: 11/23/24 18:17> ROS ED ROS Narrative Constitutional: Negative for fever, chills, malaise. CVS: Negative for chest pain. Respiratory: Negative for shortness of breath. GI: Positive for abdominal pain, nausea, vomiting. Negative for melena, hematochezia. : Negative for dysuria, frequency. EXAM <SABRINA Abel - Last Filed: 11/23/24 18:17> Physical Exam Narrative Exam Narrative: CONST: Patient sitting in no acute distress. EYES: Normal inspection. ENT: Normal inspection, dry mucous membranes. NECK: Normal inspection. RESP: No respiratory distress, CTAB. CVS: Regular rate and rhythm, no murmur, no gallop. ABD: Soft with upper abdominal and periumbilical tenderness, no guarding or rebound, nondistended, normal bowel sounds x 4. SKIN: Color normal, no rash, warm, dry, intact. EXTREMITIES: Normal appearance, no pedal edema. NEURO: Alert and answering questions appropriately. PSYCH: Normal affect. Const Vital Signs: 11/23/24 15:39 11/23/24 16:39 11/23/24 17:39 Temperature 97.5 F L Temperature Source Temporal Pulse Rate 96 70 Respiratory Rate 17 18 Respiratory Effort Normal Non-Labored Respiratory Pattern Normal Blood Pressure 160/85 H 123/73 H Blood Pressure Mean 110 89 Pulse Ox 93 98 Oxygen Delivery Method Room Air Room Air <Dr. Alex Mercado MD - Last Filed: 11/23/24 17:42> Physical Exam Const Vital Signs: 11/23/24 15:39 11/23/24 16:39 11/23/24 17:39 Temperature 97.5 F L Temperature Source Temporal Pulse Rate 96 70 Respiratory Rate 17 18 Respiratory Effort Normal Non-Labored Respiratory Pattern Normal Blood Pressure 160/85 H 123/73 H Blood Pressure Mean 110 89 Pulse Ox 93 98 Oxygen Delivery Method Room Air Room Air MDM <SABRINA Abel - Last Filed: 11/23/24 18:17> MDM MDM Narrative Medical decision making narrative: History gathered from: Patient and family members Differential includes but not limited to electrolyte derangement, JARRETT, pancreatitis 69-year-old female was recently diagnosed with primary lung cancer with liver and bony metastasis. She has been started on a pain control regimen and is scheduled to see oncology for the first time tomorrow. She presents due to ongoing nausea and abdominal pain. She appears well and nontoxic. Vital signs are stable. She has dry mucous membranes. She has upper abdominal tenderness but her abdomen is soft and nondistended. She has been tolerating p.o. intake and having daily bowel movements and clinically is not obstructed. I ordered IV fluids, morphine, and Zofran and blood work. CBC is within normal limits. BMP shows BUN of 22, creatinine 1.22. Prior creatinine 0.91. Sodium and potassium are normal. CO2 is 19.7, anion gap 18. She has elevated liver enzymes and lipase similar to previous. She was given a second dose of IV morphine and Zofran. She is tolerating p.o. intake at the bedside and is able to ambulate down the elias to the restroom. She has her first appointment with oncology tomorrow. She has Zofran, OxyContin, and oxycodone at home. She does not have any reason for admission and should follow-up for outpatient evaluation. She was comfortable with this plan discharged in stable condition. I have personally performed a face to face assessment of the patient and have reviewed the KENDALL Note. I performed a substantive portion of the visit including all aspects of the following. My olmos findings include: History is 69-year-old female complaining of generalized weakness. Recent hospitalization diagnosed with lung cancer with bony and liver mets. States she just feels generally weak. Denies fever. No dysuria. She is on pain medication at home for her cancer diagnosis. She is seeing oncology on Sunday. Exam is [69-year-old female vital signs are stable afebrile. She does not look septic or toxic. She does look dehydrated. H EENT exam pupils round reactive light. Neck nontender no JVD. Dry mucous membranes. Lungs clear to auscultation bilaterally. Heart regular rhythm 4/6 systolic ejection murmur. Abdomen is soft and nontender. Moving all 4 extremities. Nontender no edema. Normal strength. Neurologically she is awake and alert. Answering questions and following commands.] Medical Decision Making [69-year-old female recent history of lung cancer with metastases. Comes in for generalized weakness. Screening labs to be obtained. IV fluids for dehydration.] Other additions or changes: [None] Lab Data Labs: Laboratory Results - last 24 hr 11/23/24 16:27 WBC 9.6 RBC 4.80 Hgb 14.3 Hct 41.5 MCV 86.5 MCH 29.8 MCHC 34.5 RDW Std Deviation 53.6 H RDW Coeff of Brittanie 17.4 H Plt Count 348 MPV 11.5 Immature Gran % (Auto) 0.700 Neut % (Auto) 78.6 H Lymph % (Auto) 7.2 L Hanson % (Auto) 13.0 H Eos % (Auto) 0.1 Baso % (Auto) 0.4 Absolute Neuts (auto) 7.5 Absolute Lymphs (auto) 0.69 L Nucleated RBC % 0.3 Sodium 139 Potassium 4.3 Chloride 101 Carbon Dioxide 19.7 L Anion Gap 18 H BUN 22 H Creatinine 1.22 H Estim Creat Clear Calc 40.43 L Est GFR (MDRD) Non-Af 48 L BUN/Creatinine Ratio 18.3 Glucose 118 H Calcium 11.8 H Total Bilirubin 3.04 H AST 683 H ALT 159 H Alkaline Phosphatase 603 H Total Protein 6.8 Albumin 3.5 Globulin 3.2 Albumin/Globulin Ratio 1.1 Lipase 267 H <Dr. Alex Mercado MD - Last Filed: 11/23/24 17:42> MDM MDM Narrative Medical decision making narrative: I have personally performed a face to face assessment of the patient and have reviewed the KENDALL Note. I performed a substantive portion of the visit including all aspects of the following. My olmos findings include: History is 69-year-old female complaining of generalized weakness. Recent hospitalization diagnosed with lung cancer with bony and liver mets. States she just feels generally weak. Denies fever. No dysuria. She is on pain medication at home for her cancer diagnosis. She is seeing oncology on Sunday. Exam is [69-year-old female vital signs are stable afebrile. She does not look septic or toxic. She does look dehydrated. H EENT exam pupils round reactive light. Neck nontender no JVD. Dry mucous membranes. Lungs clear to auscultation bilaterally. Heart regular rhythm 4/6 systolic ejection murmur. Abdomen is soft and nontender. Moving all 4 extremities. Nontender no edema. Normal strength. Neurologically she is awake and alert. Answering questions and following commands.] Medical Decision Making [69-year-old female recent history of lung cancer with metastases. Comes in for generalized weakness. Screening labs to be obtained. IV fluids for dehydration.] Other additions or changes: [None] History & Record Review Discussion w/independent historian: Patient and Family Additional record(s) reviewed:: Prior inpatient record, Prior outpatient record, Prior ED visit and Prior labs Lab Data Attestation: I reviewed the patient's lab results. Lab results narrative: CBC normal white count of 9 H&H 14 and 41. Platelets 348. Electrolytes show a gap of 18. BUN and creatinine 22 and 1.2 consistent with dehydration. Liver enzymes are elevated they have been elevated in the past. Lipase is mildly elevated to 67. Labs: Laboratory Results - last 24 hr 11/23/24 16:27 WBC 9.6 RBC 4.80 Hgb 14.3 Hct 41.5 MCV 86.5 MCH 29.8 MCHC 34.5 RDW Std Deviation 53.6 H RDW Coeff of Brittanie 17.4 H Plt Count 348 MPV 11.5 Immature Gran % (Auto) 0.700 Neut % (Auto) 78.6 H Lymph % (Auto) 7.2 L Hanson % (Auto) 13.0 H Eos % (Auto) 0.1 Baso % (Auto) 0.4 Absolute Neuts (auto) 7.5 Absolute Lymphs (auto) 0.69 L Nucleated RBC % 0.3 Sodium 139 Potassium 4.3 Chloride 101 Carbon Dioxide 19.7 L Anion Gap 18 H BUN 22 H Creatinine 1.22 H Estim Creat Clear Calc 40.43 L Est GFR (MDRD) Non-Af 48 L BUN/Creatinine Ratio 18.3 Glucose 118 H Calcium 11.8 H Total Bilirubin 3.04 H AST 683 H ALT 159 H Alkaline Phosphatase 603 H Total Protein 6.8 Albumin 3.5 Globulin 3.2 Albumin/Globulin Ratio 1.1 Lipase 267 H Discharge Plan Triage Chief Complaint: Weakness ED Midlevel Provider: Yenifer Patten ED Provider: Alex Mercado Dx/Rx/DC Orders Clinical Impression: Dehydration, Nausea and vomiting, Metastatic cancer, Transaminitis, Elevated lipase Instructions: Cancer Tx Control Nausea Vomiting Prescriptions: No Action (DME) Disability Placard See Rx Instructions .Route .MEDSUPPLY Qty: 1 0RF Rx Instructions: Expires 09/09/2025 albuterol sulfate 90 mcg/actuation HFA aerosol inhaler 2 puff inhalation Q4H PRN (Reason: shortness of breath or wheezing) levothyroxine 25 MCG tablet 25 mcg PO DAILY gabapentin 400 MG capsule 400 mg PO TID omeprazole 40 MG capsule,delayed release(DR/EC) 40 mg PO DAILY Qty: 0 0RF potassium citrate 10 mEq (1,080 mg) tablet extended release 20 meq PO DAILY calcium 600 mg capsule 600 mg PO DAILY fluticasone propionate [Flonase Allergy Relief] 50 mcg/actuation spray,suspension 1 spray intranasal DAILY PRN (Reason: nasal congestion) Rx Instructions: administer into each nostril hydrocodone-acetaminophen 5-325 mg tablet 1 - 1.5 tab PO TID cholecalciferol (vitamin D3) [Vitamin D3] 25 mcg (1,000 unit) capsule 25 mcg PO DAILY losartan 25 mg tablet 25 mg PO DAILY docusate sodium 100 mg Capsule 100 mg PO BID Qty: 60 0RF Rx Instructions: Hold for diarrhea oxycodone [OxyContin] 10 mg tablet,oral only,ext.rel.12 hr 10 mg PO BID 30 Days Qty: 60 0RF oxycodone 5 mg tablet 5 mg PO Q4H PRN (Reason: pain) 30 Days Qty: 120 0RF Primary Care Provider: Fabricio Lemos Referrals: Fabricio Lemos MD [Primary Care Provider] - Activity Restrictions/Additional Instructions: You were given IV fluids for dehydration. Continue taking your home nausea and pain medications. Follow-up with the oncologist at your appointment tomorrow. Print Language: Sierra Leonean Disposition Disposition: Home, Self Care
[2024-11-23] MEDS: Morphine 4 MG/ML Syringe IV ×2 (16:23→17:35)
[2024-11-23] MEDS: 0.9% Normal Saline (1000mL) 1,000 ML 999 ML IV (16:24)
[2024-11-23] MEDS: Ondansetron 4 MG/2 ML Vial IV ×2 (16:24→17:35)
[2024-11-23 16:25] VITALS: BMI 27.6
[2024-11-23 16:46] LABS: Absolute Lymphocyte Count 0.69 X10^3/uL (0.83-4.51); Absolute Neutrophil Count 7.5 X10^3/uL (2.0-7.7); Basophil# 0.04 X10^3/uL; Basophil% 0.4 % (0-1); Eosinophil# 0.01 X10^3/uL; Eosinophils% 0.1 % (0-5); Hematocrit 41.5 % (37-47); Hemoglobin 14.3 g/dL (12.0-15.0); Lymphocyte # 0.69 X10^3/ul (0.83-4.51); Lymphocyte % 7.2 % (19-41); Mean Corp Hgb Conc 34.5 g/dL (32-36); Mean Corpuscular Hgb 29.8 pg (27.0-32.0); Mean Corpuscular Volume 86.5 fL (81-99); Mean Platelet Vol. 11.5 fl (6.2-12.0); Monocyte# 1.24 X10^3/uL; NRBC Flagged by Analyzer 0.3 % (0-5); Neutrophil # 7.51 X10^3/uL (2.7-7.7); Neutrophil % 78.6 % (47-70); Platelet Count 348 K/mm3 (150-450); RBC Distribution Width CV 17.4 % (11.6-14.6); RBC Distribution Width SD 53.6 fl (35.1-43.9); White Blood Count 9.6 K/mm3 (4.4-11.0)
[2024-11-23 17:26] LABS: ALB/GLOB Ratio 1.1 RATIO (0.9-2.4); AST(SGOT) 683 U/L (<=31); Alanine Aminotransfer ALT/SGPT 159 U/L (<=34); Albumin, Serum 3.5 g/dL (3.4-4.8); Alkaline Phosphatase 603 U/L (35-104); Anion Gap 18 (5-15); BUN 22 mg/dL (4-19); BUN/Creat Ratio 18.3 RATIO (10-20); Calcium,Total 11.8 mg/dL (7.6-11.0); Carbon Dioxide 19.7 mmol/L (21.0-32.0); Chloride 101 mmol/L (98-108); Creatinine, Serum 1.22 mg/dL (0.70-1.20); EST Glomerular Filtration Rate 48 (>60); Estimated Creatinine Clearance 40.43 ml/min (50-250); Globulin 3.2 g/dL (2.2-4.2); Glucose 118 mg/dL (70-99); Lipase 267 U/L (13-75); Potassium 4.3 mmol/L (3.3-5.1); Protein, Total 6.8 g/dL (5.9-8.4); Sodium Level 139 mmol/L (133-145); Total Bilirubin 3.04 mg/dL (0.00-1.30)
[2024-11-23 17:39] VITALS: BP 123/73; PULSE 70; RESP 18; O2SAT 98
== END 2024-11-23 18:10 | disposition home or self-care (01) ==
PROVIDERS: Physician Assistant; Emergency Provider Emergency Medicine; PCP Family Medicine; Visit Provider Emergency Medicine
DX: R53.1 Weakness (principal); C78.7 Secondary malignant neoplasm of liver and intrahepatic bile duct; C34.90 Malignant neoplasm of unspecified part of unspecified bronchus or lung; I10 Essential (primary) hypertension; Z79.891 Long term (current) use of opiate analgesic; Z87.891 Personal history of nicotine dependence; E86.0 Dehydration; R74.8 Abnormal levels of other serum enzymes; R74.01 Elevation of levels of liver transaminase levels; E78.00 Pure hypercholesterolemia, unspecified; G47.33 Obstructive sleep apnea (adult) (pediatric); Z99.89 Dependence on other enabling machines and devices; K21.9 Gastro-esophageal reflux disease without esophagitis; Z79.899 Other long term (current) drug therapy; Z79.51 Long term (current) use of inhaled steroids; Z98.41 Cataract extraction status, right eye; Z98.42 Cataract extraction status, left eye; Z90.49 Acquired absence of other specified parts of digestive tract; Z98.51 Tubal ligation status
CPT/HCPCS: 80053; 83690; 85025; 96361; 96374; 96375; 96376; 99283; A4216; J2405

== ENCOUNTER → 2024-12-03 | Outpatient (CLI) | payer MEDICARE, SELFPAY ==
--- NOTE | 2024-12-03 13:58 | MRI_ITS ---
PROCEDURE: BRAIN W/WO CONTRAST (MRIBRWW), 12/03/2024 REASON FOR EXAM: STAGING SCLC COMPARISON: None. TECHNIQUE: Multisequence multiplanar MRI brain was performed with and without intravenous contrast. Contrast: 14 mL Clariscan. FINDINGS: Cerebrum: No acute infarct, appreciable intracranial hemorrhage, or mass. Minimal supratentorial presumed chronic microvascular ischemic white matter changes. Cerebellum: Unremarkable. Brainstem: Unremarkable. Ventricles/extra-axial spaces: Unremarkable. Major flow voids: Grossly unremarkable within limits of nondedicated technique. Paranasal sinuses: Mild mucosal thickening of the RIGHT maxillary sinus with suspected air-fluid level. Scalp/calvarium: 1.3 cm enhancing lesion in the RIGHT parietal calvarium. The region was probably above the field of view on PET/CT 11/11/2024. Orbits: Bilateral cataract surgery. Other: No other abnormal enhancement. MRI/Brain W/WO Contrast IMPRESSION: 1. 1.3 cm enhancing lesion in the RIGHT parietal calvarium is nonspecific but s uspicious for possible osseous metastatic disease. This was unfortunately likely above the field of view on recent PET/CT. Recomm end clinical/oncologic follow-up. Dedicated PET/CT of the head/calvarium could be considered. 2. Mild RIGHT maxillary paranasal sinus disease including evidence of possible mild acute sinusitis. 3. Additional description as above. Reading Location: [id number]
== END | disposition home or self-care (01) ==
LOC: MRI 13:57
PROVIDERS: PCP Family Medicine; Referring Provider Internal Medicine Hematology & Oncology; Visit Provider Internal Medicine Hematology & Oncology
DX: C34.12 Malignant neoplasm of upper lobe, left bronchus or lung (principal); C78.7 Secondary malignant neoplasm of liver and intrahepatic bile duct; C79.51 Secondary malignant neoplasm of bone; C77.9 Secondary and unspecified malignant neoplasm of lymph node, unspecified
CPT/HCPCS: 70553; A9575

== ENCOUNTER 2024-12-12 10:25 | Day surgery (SDC) | payer MEDICARE, SELFPAY ==
--- NOTE | 2024-12-11 11:14 | PAT.ANESEVAL ---
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 When Was Last Pacemaker Check QUESTION #4 FULL TEXT: You/Your Family Experience fever (hyperthermia) with Anesthesia Last Oral Intake Last Oral intake: Last Oral Intake NPO since Meds taken in AM with sips of water? 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 - solar mechanical engineer: PONV - solar mechanical engineer Female Yes 12/11/24 08:45 HX of Motion Sickness No 12/11/24 08:45 HX of N/V After Surgery No 12/11/24 08:45 Non-Smoker Yes 12/11/24 08:45 Duration of Surgery greater No 12/11/24 08:45 than 60 minutes Number of Risk Factors 2 12/11/24 08:45 PONV Score Moderate Risk 12/11/24 08:45 Height & Weight Height & Weight: Anesthesia: Height & Weight Height 5 ft 3 in 12/09/24 11:48 Respiratory Assessment Respiratory Assessment - solar mechanical engineer: Respiratory Tract Infection Hx - solar mechanical engineer Hx Respiratory Tract Infection No 12/11/24 08:45 STOP Sleep Apnea STOP Sleep Apnea - solar mechanical engineer: STOP Sleep Apnea - solar mechanical engineer Hx Hypertension Yes: MED 12/11/24 08:45 Hx Sleep Apnea Yes 12/11/24 08:45 CPAP Yes: NON COMPLIANT 12/11/24 08:45 BIPAP No 12/11/24 08:45 Do you snore loudly (louder than talking or can be heard Do you often feel tired/ fatigued/ sleepy during daytime? Has anyone observed you stop breathing during sleep? STOP Results Positive 12/11/24 08:45 QUESTION #5 FULL TEXT : Do you snore loudly (louder than talking or can be heard through closed doors)? 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 Specify any problems Hx of Preganancy in last 3 No 12/11/24 08:45 Months Nurse Filling Out Transfusion JZOLLINGE 12/11/24 08:45 & Questions: Date: 12/11/24 12/11/24 08:45 Time: 08:48 12/11/24 08:45 Patient unable to answer at this time (ie. confused, unrespo /Reproduction History /Reproductive History - solar mechanical engineer: /Reproductive Hx- solar mechanical engineer Hx Now No 12/11/24 08:45 Gestational Age (in weeks): EDC: Hx Hx Para Hx Section SAB No 12/11/24 08:45 Active Medications Active Medications: Current Medications Generic Name Dose Route Start Last Admin Trade Name Freq PRN Reason Stop Dose Admin Cefazolin Sodium 2 gm/ N/A 20 mls @ 400 mls/hr 12/12/24 12:30 IV 12/12/24 12:32 PREOP [facility] Medical History (Updated 12/11/24 @ 09:30 by Jeanette Hand) Current use of steroid medication Ambulates with cane Back pain Heartburn On home oxygen therapy Bilateral lower extremity edema High grade neuroendocrine carcinoma of lung Jaundice Regional lymph node metastasis present Metastasis to bone Small cell lung cancer Loss of hearing Wears glasses Wears dentures Post-menopausal Thyroid disease Arthritis High cholesterol DVT (deep venous thrombosis) Injury of back Migraine headache Syncope Difficulty chewing History of hiatal hernia History of ulceration History of diverticulitis Gastric reflux Former smoker Asthma CPAP (continuous positive airway pressure) dependence Leg cramps Shortness of breath on exertion History of pain when walking Hypertension Heart murmur History of echocardiogram History of stress test Cardiology follow-up encounter Bradycardia Chronic respiratory failure with hypoxia Smoking greater than 40 pack years ARMANDO (obstructive sleep apnea) Pulmonary hypertension Bronchiectasis History of staph infection HTN (hypertension) Hypoxia COVID-19 Home Medications ?Medication ?Instructions ?Recorded ?Last Taken ?Type levothyroxine 25 mcg tablet 25 mcg PO DAILY thyroid 11/03/17 06/02/24 History gabapentin 400 mg capsule 400 mg PO TID nerve pain 07/16/20 06/02/24 History Disability Placard #1 ea 09/15/20 Unknown Rx potassium citrate 10 mEq (1,080 20 meq PO DAILY potassium 01/26/22 Unknown History mg) tablet,extended release albuterol sulfate 90 mcg/actuation 2 puff inhalation Q4H PRN 06/13/23 Unknown History aerosol inhaler shortness of breath or wheezing calcium 600 mg capsule 600 mg PO DAILY supplement 05/28/24 Unknown History fluticasone propionate 50 1 spray intranasal DAILY PRN nasal 05/28/24 Unknown History mcg/actuation nasal congestion spray,suspension (Flonase Allergy Relief) cholecalciferol (vitamin D3) 25 25 mcg PO DAILY vitamin 11/12/24 Unknown History mcg (1,000 unit) capsule (Vitamin D3) losartan 25 mg tablet 25 mg PO DAILY blood pressure 11/12/24 Unknown History ondansetron HCl 8 mg tablet 8 mg PO Q8H PRN nausea and vomiting 11/24/24 Unknown History oxycodone 5 mg tablet 10 mg PO Q4H PRN pain 12/02/24 Unknown History dexamethasone 1 mg tablet 1 mg PO .Q AM 12/11/24 Unknown History docusate sodium 100 mg capsule 100 mg PO BID PRN constipation 12/11/24 Unknown History omeprazole 40 mg capsule,delayed 40 mg PO BID gerd 12/11/24 Unknown History release Allergy/AdvReac Type Severity Reaction Status Date / Time DAIVD Inhibitors Allergy Rash Verified 12/11/24 08:17 codeine Allergy Vomiting Verified 12/11/24 08:17 walnut Allergy Food Verified 12/11/24 08:17 Allergy prednisone AdvReac Other Verified 12/11/24 08:17 Encipor-RMM-MrF Reductase AdvReac cramps Verified 12/11/24 08:17 Inhibitor (Pmlcyjh-Dzm-Khh Reductase Inhibitor) Family History Mother Cancer Hx Lung CA. Father Cancer Hx Lung CA. Surgical History Hx of right cataract extraction Hx of left cataract extraction Hx of breast reconstruction Hx of foot surgery Hx of surgical amputation of finger Hx of elbow surgery History of carpal tunnel surgery Hx of vein stripping History of cholecystectomy History of back surgery History of eye surgery History of breast biopsy History of tubal ligation History of History of appendectomy History of tonsillectomy Social History household members: spouse Smoking Status: Former smoker quit date: 08/17/16 Tobacco: How many years used: 45 alcohol intake: never Audit: Pertinent Findings Pertinent Findings EKG Perinent findings: November 13, 2024. Normal sinus rhythm. Stress test pertinent findings: March 2023. Negative stress test. Echo (EF%) pertinent findings: April 01, 2024. Ejection fraction 65%. No aortic stenosis noted. Consult pertinent findings: December 10, 2023. 1. Dyspnea-with negative stress test and normal ejection fraction. Patient is stable no further workup necessary. 2. Hypertension Recommendation Anesthesia Recommendation Anesthesia recommendation: OPTIMIZED for anesthesia
[2024-12-12] VITALS (8 sets, daily range): BP systolic 109–130; BP diastolic 58–70; PULSE 80–82; RESP 16–20; TEMP 36.8–37.2; O2SAT 91–96; BMI 26.2
[2024-12-12] MEDS: 0.9% Normal Saline (1000mL) 1,000 ML 15 ML IV (10:57)
--- NOTE | 2024-12-12 11:13 | PCM.PRE.AN2 ---
ASA Classification* ASA Classification ASA Classification: 3 Assessment & Plan Anesthesia* Anesthesia Assessment Anesthesia Assessment: Discussed sedation and/or anesthesia options, risks, benefits, and alternatives with patient/parents/legal guardian/POA. Questions invited. The patient/parents/legal guardian/POA seems to understand and agrees to proceed with anesthesia plan. Reviewed the physical assessment, medical history, allergy history and patient home medications list prior to surgery/procedure/anesthetic and documented any changes. Performed airway and anesthesia risk assessments. Anesthesia Type Anesthesia Type: MAC Anesthesia Focused Assessment* Temperature: 98.4 F Pulse Rate: 80 Blood Pressure: 130/64 Respiratory Rate: 20 Pulse Ox: 96 Airway Assessment Mouth opens: >3 cm Mallampati Score: II Focused Labs Anesthesia Preop lab: CBC WBC 9.2 K/mm3 (4.4-11.0) 12/09/24 09:57 12/09/24 RBC 3.89 M/mm3 (4.2-5.4) L 12/09/24 09:57 12/09/24 Hgb 11.4 g/dL (12.0-15.0) L 12/09/24 09:57 12/09/24 Hct 34.2 % (37-47) L 12/09/24 09:57 12/09/24 Plt Count 87 K/mm3 (150-450) L 12/09/24 09:57 12/09/24 CHEMISTRY Potassium 4.4 mmol/L (3.3-5.1) 12/09/24 09:57 12/09/24 Sodium 138 mmol/L (133-145) 12/09/24 09:57 12/09/24 Magnesium 1.4 mg/dL (1.5-2.2) L 12/09/24 09:57 12/09/24 Phosphorus 3.0 mg/dL (2.7-4.5) 12/09/24 09:57 12/09/24 BUN 7 mg/dL (4-19) 12/09/24 09:57 12/09/24 Creatinine 0.84 mg/dL (0.70-1.20) 12/09/24 09:57 12/09/24 Glucose 134 mg/dL (70-99) H 12/09/24 09:57 12/09/24 POC Glucose 199 mg/dL (70-110) H 08/10/20 17:19 08/10/20 TSH 3.530 uIU/mL (0.300-4.200) 11/13/24 04:15 11/13/24 COAG PT 14.2 SECONDS (11.7-14.9) 11/12/24 10:03 11/12/24 Pre-Assessment Diagnosis/Proposed Procedure Planned Operative Procedure(s): (R) Insertion, Vascular Port right poss left Anesthesia History 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 When Was Last Pacemaker Check QUESTION #4 FULL TEXT: You/Your Family Experience fever (hyperthermia) with Anesthesia Last Oral Intake Last Oral intake: Last Oral Intake NPO since 00:00 12/12/24 10:51 Meds taken in AM with sips of Yes 12/12/24 10:51 water? 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 - blueprinting and photocopy supervisor: PONV - blueprinting and photocopy supervisor Female Yes 12/11/24 08:45 HX of Motion Sickness No 12/11/24 08:45 HX of N/V After Surgery No 12/11/24 08:45 Non-Smoker Yes 12/11/24 08:45 Duration of Surgery greater No 12/11/24 08:45 than 60 minutes Number of Risk Factors 2 12/11/24 08:45 PONV Score Moderate Risk 12/11/24 08:45 Height & Weight Height & Weight: Anesthesia: Height & Weight Height 5 ft 3 in 12/12/24 10:51 Weight: 67 kg 12/12/24 10:51 Body Mass Index (BMI) 26.2 12/12/24 10:51 Respiratory Assessment Respiratory Assessment - blueprinting and photocopy supervisor: Respiratory Tract Infection Hx - blueprinting and photocopy supervisor Hx Respiratory Tract Infection No 12/11/24 08:45 STOP Sleep Apnea STOP Sleep Apnea - blueprinting and photocopy supervisor: STOP Sleep Apnea - blueprinting and photocopy supervisor Hx Hypertension Yes: MED 12/11/24 08:45 Hx Sleep Apnea Yes 12/11/24 08:45 CPAP Yes: NON COMPLIANT 12/11/24 08:45 BIPAP No 12/11/24 08:45 Do you snore loudly (louder than talking or can be heard Do you often feel tired/ fatigued/ sleepy during daytime? Has anyone observed you stop breathing during sleep? STOP Results Positive 12/11/24 08:45 QUESTION #5 FULL TEXT : Do you snore loudly (louder than talking or can be heard through closed doors)? 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 Specify any problems Hx of Preganancy in last 3 No 12/11/24 08:45 Months Nurse Filling Out Transfusion JZOLLINGE 12/11/24 08:45 & Questions: Date: 12/11/24 12/11/24 08:45 Time: 08:48 12/11/24 08:45 Patient unable to answer at this time (ie. confused, unrespo /Reproduction History /Reproductive History - blueprinting and photocopy supervisor: /Reproductive Hx- blueprinting and photocopy supervisor Hx Now No 12/11/24 08:45 Gestational Age (in weeks): EDC: Hx Hx Para Hx Section SAB No 12/11/24 08:45 Active Medications Active Medications: Current Medications Generic Name Dose Route Start Last Admin Trade Name Freq PRN Reason Stop Dose Admin Cefazolin Sodium 2 gm/ N/A 20 mls @ 400 mls/hr 12/12/24 12:30 IV 12/12/24 12:32 PREOP ONE Sodium Chloride 1,000 mls @ 15 mls/hr 12/12/24 11:00 12/12/24 10:57 IV 15 mls/hr .Q48H DIAZ Administration PFSH Medical History Current use of steroid medication Ambulates with cane Back pain Heartburn On home oxygen therapy Bilateral lower extremity edema High grade neuroendocrine carcinoma of lung Jaundice Regional lymph node metastasis present Metastasis to bone Small cell lung cancer Loss of hearing Wears glasses Wears dentures Post-menopausal Thyroid disease Arthritis High cholesterol DVT (deep venous thrombosis) Injury of back Migraine headache Syncope Difficulty chewing History of hiatal hernia History of ulceration History of diverticulitis Gastric reflux Former smoker Asthma CPAP (continuous positive airway pressure) dependence Leg cramps Shortness of breath on exertion History of pain when walking Hypertension Heart murmur History of echocardiogram History of stress test Cardiology follow-up encounter Bradycardia Chronic respiratory failure with hypoxia Smoking greater than 40 pack years RAMANDO (obstructive sleep apnea) Pulmonary hypertension Bronchiectasis History of staph infection HTN (hypertension) Hypoxia COVID-19 Home Medications ?Medication ?Instructions ?Recorded ?Last Taken ?Type levothyroxine 25 mcg tablet 25 mcg PO DAILY thyroid 11/03/17 12/12/24 History gabapentin 400 mg capsule 400 mg PO TID nerve pain 07/16/20 12/12/24 History Disability Placard #1 ea 09/15/20 Unknown Rx potassium citrate 10 mEq (1,080 20 meq PO DAILY potassium 01/26/22 12/11/24 History mg) tablet,extended release albuterol sulfate 90 mcg/actuation 2 puff inhalation Q4H PRN 06/13/23 Unknown History aerosol inhaler shortness of breath or wheezing calcium 600 mg capsule 600 mg PO DAILY supplement 05/28/24 12/11/24 History fluticasone propionate 50 1 spray intranasal DAILY PRN nasal 05/28/24 Unknown History mcg/actuation nasal congestion spray,suspension (Flonase Allergy Relief) cholecalciferol (vitamin D3) 25 25 mcg PO DAILY vitamin 11/12/24 12/11/24 History mcg (1,000 unit) capsule (Vitamin D3) losartan 25 mg tablet 25 mg PO DAILY blood pressure 11/12/24 12/12/24 History ondansetron HCl 8 mg tablet 8 mg PO Q8H PRN nausea and vomiting 11/24/24 Unknown History oxycodone 5 mg tablet 10 mg PO Q4H PRN pain 12/02/24 12/11/24 History docusate sodium 100 mg capsule 100 mg PO BID PRN constipation 12/11/24 Unknown History omeprazole 40 mg capsule,delayed 40 mg PO BID gerd 12/11/24 12/12/24 History release Allergy/AdvReac Type Severity Reaction Status Date / Time DAVID Inhibitors Allergy Rash Verified 12/12/24 10:47 codeine Allergy Vomiting Verified 12/12/24 10:47 walnut Allergy Food Verified 12/12/24 10:47 Allergy prednisone AdvReac Other Verified 12/12/24 10:47 Cenuffx-QUT-NyN Reductase AdvReac cramps Verified 12/12/24 10:47 Inhibitor (Erztwmu-Daw-Aci Reductase Inhibitor) Family History Mother Cancer Hx Lung CA. Father Cancer Hx Lung CA. Surgical History Hx of right cataract extraction Hx of left cataract extraction Hx of breast reconstruction Hx of foot surgery Hx of surgical amputation of finger Hx of elbow surgery History of carpal tunnel surgery Hx of vein stripping History of cholecystectomy History of back surgery History of eye surgery History of breast biopsy History of tubal ligation History of History of appendectomy History of tonsillectomy Social History household members: spouse Smoking Status: Former smoker quit date: 08/17/16 Tobacco: How many years used: 45 alcohol intake: never Review of Systems (Anesthesia) ROS Narrative System reviewed and no additional complaints, except as documented.
--- NOTE | 2024-12-12 11:38 | PCM.HP.BLA ---
History and Physical Date of Admission: 12/12/24 Date of Service: 12/10/24 MR#: [id number] Acct: [id number] Name: BUSHRA RODRIGEZ Rep #: [id number] : 1955 Provider: Dr. Yeimi Sorto MD Age/Sex: 69/F Location: [facility] Status: Signed Intake Vital Signs 12/09/2509:45 12/09/2510:48 12/11/2511:46 Height 5 ft 3 in 5 ft 3 in 5 ft 3 in Weight: 151 lb 2 oz 151 lb BMI 26.7 26.7 BP 125/73 H 135/71 H Blood Pressure Location Lt brachial Rt brachial Position Sitting Sitting Respiration 16 17 Pulse 77 81 Pulse Source Monitor Monitor Temp 97.8 F Pulse Oximetry (%) 93 93 Oxygen Delivery Method room air room air Intake Visit Reasons: PORT PLACEMENT Chief Complaint: port placement Is patient in pain?: Yes (chronic pain in back and due to cancer) Allergies DAVID Inhibitors Allergy (Verified 12/11/24 08:17) Rashcodeine Allergy (Verified 12/11/24 08:17) Vomitingwalnut Allergy (Verified 12/11/24 08:17) Food Allergyprednisone Adverse Reaction (Verified 12/11/24 08:17) PvqkkPnbfikr-OOS-VoR Reductase Inhibitor (Lodedxq-Htj-Lce Reductase Inhibitor) Adverse Reaction (Verified 12/11/24 08:17) cramps Medications ?Medication ?Instructions ?Recorded ?Confirmed ?Type levothyroxine 25 mcg tablet 25 mcg PO DAILY thyroid 11/03/17 12/11/24 History gabapentin 400 mg capsule 400 mg PO TID nerve pain 07/16/20 12/11/24 History Disability Placard #1 ea 09/15/20 12/10/24 Rx potassium citrate 10 mEq (1,080 20 meq PO DAILY potassium 01/26/22 12/11/24 History mg) tablet,extended release albuterol sulfate 90 mcg/actuation 2 puff inhalation Q4H PRN 06/13/23 12/11/24 History aerosol inhaler shortness of breath or wheezing calcium 600 mg capsule 600 mg PO DAILY supplement 05/28/24 12/11/24 History fluticasone propionate 50 1 spray intranasal DAILY PRN nasal 05/28/24 12/11/24 History mcg/actuation nasal congestion spray,suspension (Flonase Allergy Relief) cholecalciferol (vitamin D3) 25 25 mcg PO DAILY vitamin 11/12/24 12/11/24 History mcg (1,000 unit) capsule (Vitamin D3) losartan 25 mg tablet 25 mg PO DAILY blood pressure 11/12/24 12/11/24 History ondansetron HCl 8 mg tablet 8 mg PO Q8H PRN nausea and vomiting 11/24/24 12/11/24 History oxycodone 5 mg tablet 10 mg PO Q4H PRN pain 12/02/24 12/11/24 History dexamethasone 1 mg tablet 1 mg PO .Q AM 12/11/24 12/11/24 History docusate sodium 100 mg capsule 100 mg PO BID PRN constipation 12/11/24 12/11/24 History omeprazole 40 mg capsule,delayed 40 mg PO BID gerd 12/11/24 12/11/24 History release Have you fallen in the past year?: No PFSH Medical History (Updated 12/11/24 @ 09:30 by Jeanette Hand) Current use of steroid medication Ambulates with cane Back pain Heartburn On home oxygen therapy Bilateral lower extremity edema High grade neuroendocrine carcinoma of lung Jaundice Regional lymph node metastasis present Metastasis to bone Small cell lung cancer Loss of hearing Wears glasses Wears dentures Post-menopausal Thyroid disease Arthritis High cholesterol DVT (deep venous thrombosis) Injury of back Migraine headache Syncope Difficulty chewing History of hiatal hernia History of ulceration History of diverticulitis Gastric reflux Former smoker Asthma CPAP (continuous positive airway pressure) dependence Leg cramps Shortness of breath on exertion History of pain when walking Hypertension Heart murmur History of echocardiogram History of stress test Cardiology follow-up encounter Bradycardia Chronic respiratory failure with hypoxia Smoking greater than 40 pack years ARMANDO (obstructive sleep apnea) Pulmonary hypertension Bronchiectasis History of staph infection HTN (hypertension) Hypoxia COVID-19 Surgical History Hx of right cataract extraction Hx of left cataract extraction Hx of breast reconstruction Hx of foot surgery Hx of surgical amputation of finger Hx of elbow surgery History of carpal tunnel surgery Hx of vein stripping History of cholecystectomy History of back surgery History of eye surgery History of breast biopsy History of tubal ligation History of History of appendectomy History of tonsillectomy Family History Mother Cancer Hx Lung CA.Father Cancer Hx Lung CA. Social History household members: spouse Smoking Status: Former smoker quit date: 08/17/16 Tobacco: How many years used: 45 alcohol intake: never HPI HPI HPI: 69-year-old female presents for port placement due to neuroendocrine carcinoma of the lung. Patient has been getting treatments currently and her next treatment is planned for next week Sunday. ROS General General: Yes weight change and fatigue; No appetite, colon cancer or breast cancer HEENT HEENT: Yes difficulty swallowing and eye surgery; No eye injury, swollen glands or hoarseness Endo Endocrine: Yes thyroid disease; No diabetes mellitus, thyroid cancer, Hair loss, heat intolerance or cold intolerance Skin Skin: No rash or changing moles Musc Musculoskeletal: Yes back problems and arthritis; No rheumatoid arthritis, gout or joint pain Cardio Cardiovascular: Yes murmur and high blood pressure; No pacemaker, heart disease, atrial fibrillation, heart attack, heart stent, palpitations, shortness of breath with exertion or chest pain Psych Psychiatric: No depression, anxiety or hearing voices Resp Respiratory: Yes shortness of breath, Yes sleep apnea, No cough, No COPD, No asthma, No emphysema and No wheezing Gastro Gastrointestinal: Yes abdominal pain, Yes nausea or vomiting, No diarrhea, No constipation, No blood in stool, Yes acid reflux, Yes hemorrhoids, No ulcers, No gallbladder problem and No black,tarry stools Fidel Hematologic: No blood thinners, No blood disorders, No bleeding, No anemia and Yes blood clots Additional Details: 20 years ago, legs Neuro Neurologic: No numbness and No tingling Exam Const General: cooperative, healthy appearing, comfortable and no acute distress [facility] Head: normocephalic and atraumatic Neck Neck: supple Chest Other: Palpation of bilateral upper chest normal Resp Effort & Inspection: normal respiratory effort Cardio Rate: regular rate GI Inspection: non-distended Palpation: soft Skin General: no rashes or lesions noted Neuro General: CN's II-XI intact bilaterally Extrem General: normal to inspection Psych Mental Status: mental status grossly normal Attitude: cooperative Assessment and Plan Assessment and Plan (1) Encounter for insertion of venous access port: Status: Acute (2) High grade neuroendocrine carcinoma of lung: Status: Acute Plan I have discussed above with the patient- Port-a-Cath placement. Right possible left IJ Patient has been counseled as to the risks/benefits of the procedure. I have explained the risks of the surgery, including but not limited to: infection, bleeding, injury to any blood vessels/nerves, injury to lungs (such as pneumothorax or hemothorax and need for chest tube), not having any access, nonfunctioning of port due to thrombosis, infection of port, etc. the patient understands and agrees to proceed. I have answered all the patient's questions to the patient?s satisfaction and the patient has no further questions. Yeimi Sorto M.D. Pager: [phone] [facility] [address] [place] [address], [facility], [address] [place] [address] Office: [phone] Coding Level of Care Code Off vis,new,level 3 Diagnoses Encounter for insertion of venous access port Z45.2 High grade neuroendocrine carcinoma of lung C7A.1 Clinical Quality Measures Falls Risk Screening/Assistive Devices Have you fallen in the past year?: No 12/11/24 1816 <Electronically signed by Yeimi Sorto MD> Date Yeimi Sorto MD
[2024-12-12] MEDS: Cefazolin 2 GM in Syringe IV (11:40)
[2024-12-12] MEDS: Lidocaine 1% /Epi 1:100 (20ml) 20 ML Vial (12:09)
[2024-12-12] MEDS: Bupivacaine Mpf 0.5% 30 ML VIAL (12:10)
--- NOTE | 2024-12-12 12:19 | PCM.OPRPT ---
Operative Report (Standard) Operative Information Date of Procedure: 12/12/24 Pre-Operative Diagnosis: z45.2, lung cancer Post-Operative Diagnosis: Same Surgery/Procedure Performed: 1. Placement of right IJ Port-A-Cath 2. Use of fluoroscopy 3. Use of ultrasound social and political studies professor: No Type of Anesthesia: MAC/Supplemental RN Documented Start/Stop Times: Operation Date: 12/12/24 12:30 Case Time Into Pre-Op 12/12/24 10:50 Anesthesia Start 12/12/24 11:40 Into Room 12/12/24 11:40 Procedure Start 12/12/24 11:55 Procedure End 12/12/24 12:17 Anesthesia End 12/12/24 12:21 Out of Room 12/12/24 12:21 Procedure Start Time: 11:55 Procedure Stop Time: 12:17 Select all DRAINS/GRAFTS/IMPLANTS that apply: Implanted device Implanted device details: Bard PowerPort isp M.R.I. 6Fr Lot [id number] Special Medications: Ancef 2 g IV x 1 Estimated Blood Loss: < 10 cc Specimen collected: No Description of surgery: After informed consent was given, the patient was brought to the operating room and placed in the supine position. Appropriate time out protocol was followed. Patient was then given IV conscious sedation for anesthesia. The patient's right upper chest and neck were then prepped with a surgical skin preparation and sterile surgical drapes were placed. After proper landmarks were ascertained, the skin at the upper right chest area was then infiltrated with 1:1 mixture of 1% lidocaine with epinephrine and 0.5% marcaine. A needle trocar was then inserted into the right internal jugular vein with ultrasound guidance-multiple vessels were viewed with u/s and the right IJ was chosen-- and there was good aspiration of venous blood. A wire was then threaded into the needle trocar and this was visualized under fluoroscopy to ensure that the wire was in the superior vena cava. Once this was done, then the needle trocar was removed. A small skin sonya was made with an 11 blade knife at the wire entrance site. The dilator with the introducer sheath attached was then placed over the wire into the right internal jugular vein via the Seldinger technique and this was visualized under fluoroscopy. The dilator and sheath were in proper position as visualized by fluoroscopy. A subcutaneous pocket was then created caudad to the catheter insertion site. A transverse skin incision was made after the skin and subcutaneous tissues were infiltrated with local anesthetic. Blunt dissection was then used to create a space large enough for placement of the subcutaneous port. The catheter was then tunneled into the subcutaneous pocket. The wire and dilator were then removed. The catheter was then threaded into the introducer sheath and was positioned with its tip at the junction of the superior vena cava and the right atrium as visualized under fluoroscopy. The excess catheter was transected. The catheter was then attached to the subcutaneous port using manufacturers guidelines. The catheter was flushed with a heparin saline mixture prior to placement. Hemostasis was carefully controlled with electrocautery. The port was sutured to the subcutaneous fascia using 2-0 Vicryl suture at two sites. The port was then placed in the subcutaneous pocket. The incision were reapproximated with interrupted subdermal 3-0 vicryl sutures. The skin was reapproximated with 3-0 nylon suture in a interrupted fashion. Steristrips were used for reinforcement of the skin closure at IJ insertion site and a sterile opsite dressings were applied. The patient tolerated the procedure well. Surgical Findings: See op report Complications Complications: No
--- NOTE | 2024-12-12 12:22 | DCINST_ITS ---
Discharge Instructions Procedure Port-A-Cath Diet Discharge Diet: Light diet - advance as tolerated Activity May shower in (days): 5 (Keep port site clean and dry x5 days. Neck incision okay to get wet after 1 day. Okay to lower shower and upper sponge bath. OR okay to taper off port site with a Ziploc bag to shower) Lifting Restrictions: No lifting > 15 pounds for 3 days with the arm on the side of the port Dressing / Incision Call your doctor if your incision/area has: Continuous Slow Oozing, Sudden Increased Bleeding, Increased Pain/ Swelling, Increased Redness, Foul Smelling Discharge and Swelling at the incision site Call your doctor if you observe: Fever of 101 or Higher Change Dressing in: 2 days (2-3 days- port site; ok to remove neck opsite in 1 day) Follow Up Care Please Follow Up With: Yeimi Sorto MD When: In 10 days for permanent suture removal?call office for appointment Test Results: Test results from this visit will be discussed in further detail at your follow- up appointment, if applicable. Discharge Plan Admission Attending Provider: Yeimi Sorto Primary Care Provider: Fabricio Lemos Instructions Print Language: Stateless Discharge Orders/Prescriptions Prescriptions: Continued (DME) Disability Placard See Rx Instructions .Route .MEDSUPPLY Qty: 1 0RF Rx Instructions: Expires 09/09/2025 albuterol sulfate 90 mcg/actuation HFA aerosol inhaler 2 puff inhalation Q4H PRN (Reason: shortness of breath or wheezing) ondansetron HCl 8 mg tablet 8 mg PO Q8H PRN (Reason: nausea and vomiting) oxycodone 5 mg tablet 10 mg PO Q4H PRN (Reason: pain) levothyroxine 25 MCG tablet 25 mcg PO DAILY gabapentin 400 MG capsule 400 mg PO TID potassium citrate 10 mEq (1,080 mg) tablet extended release 20 meq PO DAILY calcium 600 mg capsule 600 mg PO DAILY fluticasone propionate [Flonase Allergy Relief] 50 mcg/actuation spray,suspension 1 spray intranasal DAILY PRN (Reason: nasal congestion) Rx Instructions: administer into each nostril cholecalciferol (vitamin D3) [Vitamin D3] 25 mcg (1,000 unit) capsule 25 mcg PO DAILY losartan 25 mg tablet 25 mg PO DAILY omeprazole 40 MG capsule,delayed release(DR/EC) 40 mg PO BID docusate sodium 100 mg Capsule 100 mg PO BID PRN (Reason: constipation) Rx Instructions: Hold for diarrhea Referrals / Follow Up: Fabricio Lemos MD [Primary Care Provider] - Disposition Disposition (needs filled in before D/C Order can be placed): Home, Self Care
--- NOTE | 2024-12-12 12:30 | RAD_ITS ---
EXAM: XR Chest, 1 View CLINICAL INDICATION: PORT TECHNIQUE: Frontal view of the chest. COMPARISON: No relevant prior studies available. FINDINGS: LUNGS AND PLEURAL SPACES: Pulmonary congestion and edema. Pneumonia cannot be excluded. HEART: Unremarkable. No cardiomegaly. MEDIASTINUM: Unremarkable. Normal mediastinal contour. BONES/JOINTS: Unremarkable. No acute fracture. TUBES, LINES AND DEVICES: Right-sided Mediport with the distal tip in the SVC. No pneumothorax. RAD/Chest 1 View (Portable) IMPRESSION: Pulmonary congestion and edema. Pneumonia cannot be excluded. Reading Location: [facility]
--- NOTE | 2024-12-12 12:30 | PCM.POST.ANE ---
Anesthesia: Postop Eval I Current Vital Signs Temperature: 99.0 F Pulse Rate: 82 Blood Pressure: 109/58 Respiratory Rate: 20 Pulse Ox: 91 Assessment Airway patent: Yes Spontaneous unlabored respirations: No nausea: No Vomiting: No Anesthesia Complication: No Fluid Hydration Crystalloid volume administer (ml): 500 Total IV fluid infused: 500 Progress Note Anesthesia document: Postop Eval 1 completed: Yes
--- NOTE | 2024-12-12 12:33 | POSTOPAN2_ITS ---
Anesthesia Postop Eval I Sum Postop Eval Completion status Anesthesia document: Postop Eval 1 completed: Yes Anesthesia Postop Eval I Summary Anesthesia Postop Eval I Summary: Anesthesia Postop Eval I: Assessment Summary Airway patent Yes 12/12/24 12:31 [email or web address] [email or web address] Spontaneous unlabored No 12/12/24 12:31 [email or web address] [email or web address] respirations Mental status nausea No 12/12/24 12:31 [email or web address] [email or web address] Vomiting No 12/12/24 12:31 [email or web address] Anesthesia Postop Eval I: Fluid Summary Crystalloid volume administer 500 12/12/24 12:31 [email or web address] (ml) Colloids volume administered ( ml) Blood Product volume administered (ml) Total IV fluid infused 500 12/12/24 12:31 [email or web address] Anesthesia Postop Eval I: Summary Notes Anesthesia Complication No 12/12/24 12:31 [email or web address] Anesthesia Complication Comment: Post-operative progress note Anesthesia: Postop Eval II Evaluation Mental status: Awake Pain Level: 0 nausea: No Vomiting: No
--- NOTE | 2024-12-12 12:33 | PCM.POSTANE2 ---
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 Spontaneous unlabored No 12/12/24 12:31 HEAVY MOBI[employer] EQUIPMENT [email or web address] respirations Mental status nausea No 12/12/24 12:31 HEAVY MOBILE EQUIPMENT [email or web address] Vomiting No 12/12/24 12:31 HEAVY MOBILE EQUIPMENT [email or web address] Anesthesia Postop Eval I: Fluid Summary Crystalloid volume administer 500 12/12/24 12:31 HEAVY MOBILE EQUIPMENT [email or web address] (ml) Colloids volume administered ( ml) Blood Product volume administered (ml) Total IV fluid infused 500 12/12/24 12:31 HEAVY MOBILE EQUIPMENT [email or web address] Anesthesia Postop Eval I: Summary Notes Anesthesia Complication No 12/12/24 12:31 HEAVY MOBILE EQUIPMENT [email or web address] Anesthesia Complication Comment: Post-operative progress note Anesthesia: Postop Eval II Evaluation Mental status: Awake Pain Level: 0 nausea: No Vomiting: No
== END 2024-12-12 13:25 | disposition home or self-care (01) ==
LOC: SDC 10:26 → AC 10:28
PROVIDERS: PCP Family Medicine; Referring Provider Surgery; Visit Provider Surgery
PROC: (CPT 36561; principal; 2024-12-12 12:15)
DX: Z45.2 Encounter for adjustment and management of vascular access device (principal); C7A.1 Malignant poorly differentiated neuroendocrine tumors; I10 Essential (primary) hypertension; E78.00 Pure hypercholesterolemia, unspecified; Z79.899 Other long term (current) drug therapy; Z86.16 Personal history of COVID-19; Z87.891 Personal history of nicotine dependence
CPT/HCPCS: 36561; 00532; 71045; 77001

== ENCOUNTER 2025-01-09 15:35 | Observation (INO) | payer MEDICARE, SELFPAY ==
[2025-01-09] VITALS (23 sets, daily range): BP systolic 103–131; BP diastolic 49–82; PULSE 69–99; RESP 10–25; TEMP 36.9–37.3; O2SAT 88–97; BMI 27.1; BMI 25.6
--- NOTE | 2025-01-09 15:44 | ED.VIS.CHEST ---
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 She and her son state that this is her third round of chemotherapy infusion. She usually gets that once every 3 weeks. This was the third dose of her white blood cell booster as she calls it. She had not had a reaction to the first 2, but they state that approximately 15 minutes after administration, on the way home she experienced 10 to 15 minutes of chest pain and pressure. She states she had nausea with it but no vomiting. She felt short of breath as well. No recent fevers or chills, no cough. She states her symptoms have resolved. She is unsure if she had a reaction to her white blood cell booster. 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 Loss of hearing Wears glasses Wears dentures Post-menopausal Thyroid disease Arthritis High cholesterol DVT (deep venous thrombosis) Injury of back Migraine headache Syncope Difficulty chewing History of hiatal hernia History of ulceration History of diverticulitis Gastric reflux Former smoker Asthma CPAP (continuous positive airway pressure) dependence Leg cramps Shortness of breath on exertion History of pain when walking Hypertension Heart murmur History of echocardiogram History of stress test Cardiology follow-up encounter Bradycardia Chronic respiratory failure with hypoxia Smoking greater than 40 pack years ARMANDO (obstructive sleep apnea) Pulmonary hypertension Bronchiectasis History of staph infection HTN (hypertension) Hypoxia COVID-19 Home Medications ?Medication ?Instructions ?Recorded ?Last Taken ?Type levothyroxine 25 mcg tablet 25 mcg PO DAILY thyroid 11/03/17 01/09/25 History gabapentin 400 mg capsule 400 mg PO TID nerve pain 07/16/20 01/09/25 History Disability Placard #1 ea 09/15/20 Unknown Rx potassium citrate 10 mEq (1,080 20 meq PO DAILY potassium 01/26/22 12/11/24 History mg) tablet,extended release albuterol sulfate 90 mcg/actuation 2 puff inhalation Q4H PRN 06/13/23 Unknown History aerosol inhaler shortness of breath or wheezing fluticasone propionate 50 1 spray intranasal DAILY PRN nasal 05/28/24 Unknown History mcg/actuation nasal congestion spray,suspension (Flonase Allergy Relief) cholecalciferol (vitamin D3) 25 25 mcg PO DAILY vitamin 11/12/24 01/09/25 History mcg (1,000 unit) capsule (Vitamin D3) losartan 25 mg tablet 25 mg PO DAILY blood pressure 11/12/24 01/09/25 History ondansetron HCl 8 mg tablet 8 mg PO Q8H PRN nausea and vomiting 11/24/24 01/09/25 History docusate sodium 100 mg capsule 100 mg PO BID PRN constipation 12/11/24 Unknown History omeprazole 40 mg capsule,delayed 40 mg PO BID gerd 12/11/24 01/09/25 History release lidocaine-prilocaine 2.5 %-2.5 % 1 applic topical ONCE PRN port 12/15/24 Unknown Rx topical cream access 30 days #30 grams prochlorperazine maleate 10 mg 10 mg PO Q6H PRN nausea and 12/15/24 01/07/25 Rx tablet vomiting #30 tabs mirtazapine 15 mg tablet 15 mg PO QHS #30 tabs 12/29/24 01/08/25 Rx calcium carbonate (Calcium 600) 600 mg PO DAILY 01/09/25 01/09/25 History oxycodone 10 mg tablet 10 mg PO Q4H PRN pain 01/09/25 01/09/25 History Allergy/AdvReac Type Severity Reaction Status Date / Time DAVID Inhibitors Allergy Rash Verified 01/09/25 15:36 codeine Allergy Vomiting Verified 01/09/25 15:36 walnut Allergy Food Verified 01/09/25 15:36 Allergy prednisone AdvReac Other Verified 01/09/25 15:36 [id number] Reductase AdvReac cramps Verified 01/09/25 15:36 Inhibitor (Jbpbmdz-Mak-Wee Reductase Inhibitor) Family History Mother Cancer Hx Lung CA. Father Cancer Hx Lung CA. Surgical History Hx of right cataract extraction Hx of left cataract extraction Hx of breast reconstruction Hx of foot surgery Hx of surgical amputation of finger Hx of elbow surgery History of carpal tunnel surgery Hx of vein stripping History of cholecystectomy History of back surgery History of eye surgery History of breast biopsy History of tubal ligation History of History of appendectomy History of tonsillectomy Social History household members: spouse Smoking Status: Former smoker quit date: 08/17/16 Tobacco: How many years used: 45 alcohol intake: never ROS ROS ED ROS Narrative Review of systems positive for midsternal chest pressure and discomfort associated with nausea and shortness of breath. No diaphoresis. No vomiting. No exacerbating or alleviating factors. Pain and pressure/discomfort lasted approximately 15 minutes but has since resolved. EXAM Physical Exam Narrative Exam Narrative: Afebrile. Vital signs noted. Nontoxic-appearing. Cardiovascular examination of is a regular rate and rhythm, no murmurs rubs or gallops appreciated. Lungs are clear to auscultation bilaterally. The abdomen is soft and nontender. Positive bowel sounds. No guarding or rebound. Neurological examination is nonfocal and nonlateralizing. No pedal edema. Const Vital Signs: 01/09/25 15:36 01/09/25 15:36 01/09/25 15:53 Temperature 98.5 F Temperature Source Oral Pulse Rate 90 87 Respiratory Rate 14 17 Respiratory Effort Blood Pressure 131/82 H 131/82 H Blood Pressure Mean 98 98 Pulse Ox 92 96 Oxygen Delivery Method Room Air Room Air Room Air Oxygen Flow Rate (L/min) 01/09/25 15:53 01/09/25 15:57 01/09/25 16:03 Temperature Temperature Source Pulse Rate 77 99 Respiratory Rate 19 H 18 Respiratory Effort Normal Non-Labored Blood Pressure Blood Pressure Mean Pulse Ox 94 90 Oxygen Delivery Method Oxygen Flow Rate (L/min) 01/09/25 16:05 01/09/25 16:15 01/09/25 16:30 Temperature 98.9 F Temperature Source Oral Pulse Rate 96 73 80 Respiratory Rate 12 18 23 H Respiratory Effort Blood Pressure 131/82 H 120/67 Blood Pressure Mean 98 82 Pulse Ox 93 96 96 Oxygen Delivery Method Room Air Oxygen Flow Rate (L/min) 01/09/25 16:45 01/09/25 16:58 01/09/25 17:00 Temperature 98.9 F Temperature Source Oral Pulse Rate 81 96 78 Respiratory Rate 25 H 24 H 21 H Respiratory Effort Blood Pressure 120/67 131/68 H Blood Pressure Mean 84 83 Pulse Ox 94 96 96 Oxygen Delivery Method Room Air Oxygen Flow Rate (L/min) 01/09/25 17:15 01/09/25 17:30 01/09/25 17:45 Temperature Temperature Source Pulse Rate 72 69 69 Respiratory Rate 15 22 H 22 H Respiratory Effort Blood Pressure 103/57 L Blood Pressure Mean 71 Pulse Ox 95 93 93 Oxygen Delivery Method Oxygen Flow Rate (L/min) 01/09/25 18:00 01/09/25 18:00 01/09/25 18:04 Temperature 99.1 F Temperature Source Oral Pulse Rate 69 Respiratory Rate 18 Respiratory Effort Blood Pressure 106/54 L 103/53 L Blood Pressure Mean 70 69 Pulse Ox 91 95 Oxygen Delivery Method Nasal Cannula Oxygen Flow Rate (L/min) 2 01/09/25 18:15 01/09/25 18:16 01/09/25 18:17 Temperature Temperature Source Pulse Rate 70 Respiratory Rate 23 H Respiratory Effort Blood Pressure Blood Pressure Mean Pulse Ox 88 88 94 Oxygen Delivery Method Room Air Nasal Cannula Oxygen Flow Rate (L/min) 2 01/09/25 18:30 01/09/25 18:45 01/09/25 19:00 Temperature Temperature Source Pulse Rate 71 74 76 Respiratory Rate 22 H 14 11 L Respiratory Effort Blood Pressure 112/49 L 118/65 Blood Pressure Mean 68 82 Pulse Ox 97 97 96 Oxygen Delivery Method Oxygen Flow Rate (L/min) 01/09/25 19:07 01/09/25 19:09 Temperature 98.8 F 98.8 F Temperature Source Oral Pulse Rate 76 76 Respiratory Rate 10 L 10 L Respiratory Effort Blood Pressure 112/49 L 112/49 L Blood Pressure Mean 70 70 Pulse Ox 96 96 Oxygen Delivery Method Nasal Cannula Oxygen Flow Rate (L/min) 2 MDM MDM MDM Narrative Medical decision making narrative: The differential diagnosis includes but not limited to medication side effect versus allergic reaction versus anaphylaxis versus chest pain of other etiology including ACS. I have very low suspicion for pulmonary embolism. Pulse ox 96% on room air without evidence of hypoxia. Her symptoms have resolved as well. Chest pain workup was pursued. Chest x-ray obtained and interpreted by myself independently in 1 view shows mild congestion, but no pneumothorax or discrete infiltrate. I do not feel antibiotics are indicated. EKG was obtained and interpreted by myself independently as normal sinus rhythm at 76 bpm without ectopy or acute ST changes. No STEMI. In review of her laboratory work she does have a leukocytosis of 18.3 with hemoglobin 11.5, hematocrit 34.6, platelet count 442. Sodium normal at 141 with potassium 3.6, BUN of 17 and creatinine 0.67. High-sensitivity troponin initially is 12 with repeat being 19. According to the guidelines, the delta troponin greater than 6 indicates the need for observation/rule in for ACS. I discussed patient with Dr. Fernandez with oncology who agrees with observation/admission. I then discussed the patient with Dr. Estrella Cabezas for observation on PCU given her elevated troponins and chest pain. She would like a BNP added to look for fluid overload. Additionally, patient has oxygen at home which she wears on occasion and she required it here as she had a pulse ox of 88% on room air. Currently she is pain-free. Disposition is assigned observation. Patient is in stable condition. History & Record Review Discussion w/independent historian: Patient and Family Lab Data Attestation: I reviewed the patient's lab results. Labs: Laboratory Results - last 24 hr 01/09/25 01/09/25 15:50 17:58 WBC 18.3 H RBC 3.83 L Hgb 11.5 L Hct 34.6 L MCV 90.3 MCH 30.0 MCHC 33.2 RDW Std Deviation 60.6 H RDW Coeff of Brittanie 18.8 H Plt Count 442 MPV 9.9 Immature Gran % (Auto) 1.800 H Neut % (Auto) 93.2 H Lymph % (Auto) 4.7 L Tillman % (Auto) 0.2 Eos % (Auto) 0.0 Baso % (Auto) 0.1 Absolute Neuts (auto) 17.1 H Absolute Lymphs (auto) 0.86 Nucleated RBC % 0 Platelet Estimate SLT INC Sodium 141 Potassium 3.6 Chloride 107 Carbon Dioxide 20.1 L Anion Gap 14 BUN 17 Creatinine 0.67 L Estim Creat Clear Calc 61.24 Est GFR (MDRD) Non-Af 94 BUN/Creatinine Ratio 25.5 H Glucose 64 L Calcium 8.8 Troponin T High Sens 12 Troponin T Hi Sens 2 Hr 19 H NT pro BNP II 3119 H Radiography Chest X-Ray - ED: 1 View, Read by ED Physician, Read by Radiologist and CHF Diagnostic Testing: Clinical Impression(s) from Imaging Studies Chest X-Ray 01/09/25 16:09 IMPRESSION: Interstitial and patchy airspace disease, may relate to congestion and edema. Reading Location: [facility] Discharge Plan Dx/Rx/DC Orders Clinical Impression: Chest pain, Shortness of breath, Small cell lung cancer, Elevated troponin Disposition Disposition: Acute Care Hospital [facility] Discharge Date/Time: 01/09/25 20:00
[2025-01-09 15:59] LABS: Absolute Lymphocyte Count 0.86 X10^3/uL (0.83-4.51); Absolute Neutrophil Count 17.1 X10^3/uL (2.0-7.7); Basophil# 0.01 X10^3/uL; Basophil% 0.1 % (0-1); Hematocrit 34.6 % (37-47); Hemoglobin 11.5 g/dL (12.0-15.0); Lymphocyte # 0.86 X10^3/ul (0.83-4.51); Lymphocyte % 4.7 % (19-41); Mean Corp Hgb Conc 33.2 g/dL (32-36); Mean Corpuscular Volume 90.3 fL (81-99); Mean Platelet Vol. 9.9 fl (6.2-12.0); Monocyte# 0.03 X10^3/uL; Monocyte% 0.2 % (0-10); NRBC Flagged by Analyzer 0 % (0-5); Neutrophil # 17.05 X10^3/uL (2.7-7.7); Neutrophil % 93.2 % (47-70); POSITIVE MORPHOLOGY YES; Platelet Count 442 K/mm3 (150-450); RBC Distribution Width CV 18.8 % (11.6-14.6); RBC Distribution Width SD 60.6 fl (35.1-43.9); Red Blood Count 3.83 M/mm3 (4.2-5.4); White Blood Count 18.3 K/mm3 (4.4-11.0)
[2025-01-09 16:03] LABS: Differential Indicated SCAN CRITERIA MET
--- NOTE | 2025-01-09 16:09 | RAD_ITS ---
EXAM: XR Chest, 1 View CLINICAL INDICATION: CHEST PAIN TECHNIQUE: Frontal view of the chest. COMPARISON: No relevant prior studies available. FINDINGS: LUNGS AND PLEURAL SPACES: Interstitial and patchy airspace disease, may relate to congestion and edema. HEART: Unremarkable. No cardiomegaly. MEDIASTINUM: Unremarkable. Normal mediastinal contour. BONES/JOINTS: Unremarkable. No acute fracture. TUBES, LINES AND DEVICES: Right-sided Mediport with the distal tip in the SVC. No pneumothorax. RAD/Chest 1 View (Portable) IMPRESSION: Interstitial and patchy airspace disease, may relate to congestion and edema. Reading Location: [id number]
[2025-01-09 16:18] LABS: Troponin T High Sensitivity 12 ng/L (<=14)
[2025-01-09 16:27] LABS: Anion Gap 14 (5-15); BUN 17 mg/dL (4-19); BUN/Creat Ratio 25.5 RATIO (10-20); Calcium,Total 8.8 mg/dL (7.6-11.0); Carbon Dioxide 20.1 mmol/L (21.0-32.0); Chloride 107 mmol/L (98-108); Creatinine, Serum 0.67 mg/dL (0.70-1.20); EST Glomerular Filtration Rate 94 (>60); Estimated Creatinine Clearance 61.24 ml/min (50-250); Glucose 64 mg/dL (70-99); Potassium 3.6 mmol/L (3.3-5.1); Sodium Level 141 mmol/L (133-145)
[2025-01-09 16:41] LABS: Platelet Estimate SLT INC (ADEQ)
[2025-01-09 18:35] LABS: Troponin T High Sens 2 HR 19 ng/L (<=14)
--- NOTE | 2025-01-09 19:31 | PCM.HP.STD ---
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 Patient underwent chemotherapy today and had her third dose of Neupogen, 15 minutes later she experienced 10 to 15 minutes of a feeling of chest heaviness, nausea, little bit of shortness of breath. Symptoms almost completely resolved at the time of ED physician evaluation. In the ED patient afebrile, heart rate 78 with a blood pressure 131/68, respiratory rate 21 and pulse ox 96%, did decrease to 88% on room air and patient was placed on 2 L with recovery to mid to high 90s. CBC showed white blood cell count of 18.3 though patient is receiving Neupogen so unclear significance, BMP with kidney function at baseline but did reveal glucose of 64. X-ray showed interstitial and patchy airspace disease that required congestion and edema. Initial troponin of 12 with a repeat of 19, given this hospitalist contacted for admission. Patient evaluated with family member at bedside, she reports history as above with the episode of chest heaviness that started 10 to 15 minutes after her Neupogen, that feeling resolved but she still feels like she is not quite back to normal, reports a little bit of shortness of breath, had a little bit of nausea earlier this resolved. Has had some swelling in her lower extremities bilaterally that she has attributed to chemo. Denies any fever or cough, no bowel or bladder changes. [facility] Medical History (Updated 01/09/25 @ 19:35 by Christina Muñiz) Ambulates with cane Arthritis Asthma Back pain Bilateral lower extremity edema Bradycardia Bronchiectasis Cardiology follow-up encounter Chest pain Chronic respiratory failure with hypoxia COVID-19 CPAP (continuous positive airway pressure) dependence Current use of steroid medication Difficulty chewing DVT (deep venous thrombosis) Encounter for chemotherapy management Former smoker Gastric reflux GERD (gastroesophageal reflux disease) Heart murmur Heartburn High cholesterol High grade neuroendocrine carcinoma of lung History of diverticulitis History of echocardiogram History of hiatal hernia History of pain when walking History of staph infection History of stress test History of ulceration HTN (hypertension) Hypertension Hypothyroidism Hypoxia Injury of back Internal hemorrhoids Jaundice Leg cramps Loss of hearing Metastasis to bone Migraine headache On home oxygen therapy ARMANDO (obstructive sleep apnea) Post-menopausal Pulmonary hypertension Regional lymph node metastasis present Shortness of breath on exertion Sleep apnea Sleep disturbance Small cell lung cancer Smoking greater than 40 pack years Syncope Thyroid disease Wears dentures Wears glasses Home Medications ?Medication ?Instructions ?Recorded ?Last Taken ?Type levothyroxine 25 mcg tablet 25 mcg PO DAILY thyroid 11/03/17 01/09/25 History gabapentin 400 mg capsule 400 mg PO TID nerve pain 07/16/20 01/09/25 History Disability Placard #1 ea 09/15/20 Unknown Rx potassium citrate 10 mEq (1,080 20 meq PO DAILY potassium 01/26/22 12/11/24 History mg) tablet,extended release albuterol sulfate 90 mcg/actuation 2 puff inhalation Q4H PRN 06/13/23 Unknown History aerosol inhaler shortness of breath or wheezing fluticasone propionate 50 1 spray intranasal DAILY PRN nasal 05/28/24 Unknown History mcg/actuation nasal congestion spray,suspension (Flonase Allergy Relief) cholecalciferol (vitamin D3) 25 25 mcg PO DAILY vitamin 11/12/24 01/09/25 History mcg (1,000 unit) capsule (Vitamin D3) losartan 25 mg tablet 25 mg PO DAILY blood pressure 11/12/24 01/09/25 History ondansetron HCl 8 mg tablet 8 mg PO Q8H PRN nausea and vomiting 11/24/24 01/09/25 History docusate sodium 100 mg capsule 100 mg PO BID PRN constipation 12/11/24 Unknown History omeprazole 40 mg capsule,delayed 40 mg PO BID gerd 12/11/24 01/09/25 History release lidocaine-prilocaine 2.5 %-2.5 % 1 applic topical ONCE PRN port 12/15/24 Unknown Rx topical cream access 30 days #30 grams prochlorperazine maleate 10 mg 10 mg PO Q6H PRN nausea and 12/15/24 01/07/25 Rx tablet vomiting #30 tabs mirtazapine 15 mg tablet 15 mg PO QHS #30 tabs 12/29/24 01/08/25 Rx calcium carbonate (Calcium 600) 600 mg PO DAILY 01/09/25 01/09/25 History oxycodone 10 mg tablet 10 mg PO Q4H PRN pain 01/09/25 01/09/25 History Allergy/AdvReac Type Severity Reaction Status Date / Time DAVID Inhibitors Allergy Rash Verified 01/09/25 15:36 codeine Allergy Vomiting Verified 01/09/25 15:36 walnut Allergy Food Verified 01/09/25 15:36 Allergy prednisone AdvReac Other Verified 01/09/25 15:36 Xzrtqaf-NCH-QbP Reductase AdvReac cramps Verified 01/09/25 15:36 Inhibitor (Pxrlrqg-Dmt-Srd Reductase Inhibitor) Family History Mother Cancer Hx Lung CA. Father Cancer Hx Lung CA. Surgical History History of appendectomy History of back surgery History of breast biopsy History of History of carpal tunnel surgery History of cholecystectomy History of eye surgery History of tonsillectomy History of tubal ligation Hx of breast reconstruction Hx of elbow surgery Hx of foot surgery Hx of left cataract extraction Hx of right cataract extraction Hx of surgical amputation of finger Hx of vein stripping Social History household members: spouse Smoking Status: Former smoker quit date: 08/17/16 Tobacco: How many years used: 45 alcohol intake: never ROS ROS Narrative General: Denies fever/chills HENT: Does have a bit of headache, denies stuffy nose, denies sore throat EYES: Denies changes in vision Resp: Denies cough, little bit of shortness of breath Cardiac: Had the episode of chest heaviness in the center of her chest that is improved now but reports she feels still not quite back to normal GI: Denies abdominal pain, denies changes in bowel, denies nausea/vomiting at this time : Denies changes in urination Extremity: Reports a lot of swelling in her feet that she has been attributing to chemo MSK: Denies focal weakness Neuro: Denies any numbness/tingling Heme: Denies any bleeding or bruising Skin: Denies rashes Psychiatric: No complaints voiced Vital Signs Vital Signs Vital Signs: 01/09/25 15:36 01/09/25 15:36 01/09/25 15:53 Temperature 98.5 F Temperature Source Oral Pulse Rate 90 87 Respiratory Rate 14 17 Respiratory Effort Blood Pressure 131/82 H 131/82 H Blood Pressure Mean 98 98 Pulse Ox 92 96 Oxygen Delivery Method Room Air Room Air Room Air Oxygen Flow Rate (L/min) 01/09/25 15:53 01/09/25 15:57 01/09/25 16:03 Temperature Temperature Source Pulse Rate 77 99 Respiratory Rate 19 H 18 Respiratory Effort Normal Non-Labored Blood Pressure Blood Pressure Mean Pulse Ox 94 90 Oxygen Delivery Method Oxygen Flow Rate (L/min) 01/09/25 16:05 01/09/25 16:15 01/09/25 16:30 Temperature 98.9 F Temperature Source Oral Pulse Rate 96 73 80 Respiratory Rate 12 18 23 H Respiratory Effort Blood Pressure 131/82 H 120/67 Blood Pressure Mean 98 82 Pulse Ox 93 96 96 Oxygen Delivery Method Room Air Oxygen Flow Rate (L/min) 01/09/25 16:45 01/09/25 16:58 01/09/25 17:00 Temperature 98.9 F Temperature Source Oral Pulse Rate 81 96 78 Respiratory Rate 25 H 24 H 21 H Respiratory Effort Blood Pressure 120/67 131/68 H Blood Pressure Mean 84 83 Pulse Ox 94 96 96 Oxygen Delivery Method Room Air Oxygen Flow Rate (L/min) 01/09/25 17:15 01/09/25 17:30 01/09/25 17:45 Temperature Temperature Source Pulse Rate 72 69 69 Respiratory Rate 15 22 H 22 H Respiratory Effort Blood Pressure 103/57 L Blood Pressure Mean 71 Pulse Ox 95 93 93 Oxygen Delivery Method Oxygen Flow Rate (L/min) 01/09/25 18:00 01/09/25 18:00 01/09/25 18:04 Temperature 99.1 F Temperature Source Oral Pulse Rate 69 Respiratory Rate 18 Respiratory Effort Blood Pressure 106/54 L 103/53 L Blood Pressure Mean 70 69 Pulse Ox 91 95 Oxygen Delivery Method Nasal Cannula Oxygen Flow Rate (L/min) 2 01/09/25 18:15 01/09/25 18:16 01/09/25 18:17 Temperature Temperature Source Pulse Rate 70 Respiratory Rate 23 H Respiratory Effort Blood Pressure Blood Pressure Mean Pulse Ox 88 88 94 Oxygen Delivery Method Room Air Nasal Cannula Oxygen Flow Rate (L/min) 2 01/09/25 18:30 01/09/25 18:45 01/09/25 19:00 Temperature Temperature Source Pulse Rate 71 74 76 Respiratory Rate 22 H 14 11 L Respiratory Effort Blood Pressure 112/49 L 118/65 Blood Pressure Mean 68 82 Pulse Ox 97 97 96 Oxygen Delivery Method Oxygen Flow Rate (L/min) 01/09/25 19:07 01/09/25 19:09 Temperature 98.8 F 98.8 F Temperature Source Oral Pulse Rate 76 76 Respiratory Rate 10 L 10 L Respiratory Effort Blood Pressure 112/49 L 112/49 L Blood Pressure Mean 70 70 Pulse Ox 96 96 Oxygen Delivery Method Nasal Cannula Oxygen Flow Rate (L/min) 2 Weight Weight: 69.6 kg Body Mass Index (BMI) 27.1 Physical Exam Narrative General: Alert, oriented, no apparent distress HEENT: Atraumatic, normocephalic Eyes: Anicteric, normal conjunctiva, extraocular movements grossly intact Neck: Supple Respiratory: No overt wheezes, crackles, rhonchi appreciated on auscultation, normal respiratory effort Cardiovascular: Regular rate and rhythm GI: Soft, nontender, nondistended Extremities: Does have trace to 1+ lower extremity bilateral edema equal on both sides Musculoskeletal: Moving all extremities Neuro: No overt focal neurological deficits Skin: No rashes appreciated Psych: Cooperative Results Lab / Micro Data 01/09/25 15:50 01/09/25 15:50 Labs: Laboratory Results - last 24 hr 01/09/25 15:50: WBC 18.3 H, RBC 3.83 L, Hgb 11.5 L, Hct 34.6 L, MCV 90.3, MCH 30.0, MCHC 33.2, RDW Std Deviation 60.6 H, RDW Coeff of Brittanie 18.8 H, Plt Count 442, MPV 9.9, Immature Gran % (Auto) 1.800 H, Neut % (Auto) 93.2 H, Lymph % (Auto) 4.7 L, Early % (Auto) 0.2, Eos % (Auto) 0.0, Baso % (Auto) 0.1, Absolute Neuts (auto) 17.1 H, Absolute Lymphs (auto) 0.86, Nucleated RBC % 0, Platelet Estimate SLT INC, Sodium 141, Potassium 3.6, Chloride 107, Carbon Dioxide 20.1 L, Anion Gap 14, BUN 17, Creatinine 0.67 L, Estim Creat Clear Calc 61.24, Est GFR (MDRD) Non-Af 94, BUN/Creatinine Ratio 25.5 H, Glucose 64 L, Calcium 8.8, Troponin T High Sens 12 01/09/25 17:58: Troponin T Hi Sens 2 Hr 19 H Imaging Radiology Impression Chest X-Ray 01/09/25 16:09 IMPRESSION: Interstitial and patchy airspace disease, may relate to congestion and edema. Reading Location: [facility] Assessment & Plan Assessment/Plan (1) Chest pain: PLAN: Plan # Chest pain - Initial troponin 12 with a repeat of 19, unclear significance - Chest x-ray did query congestion and edema - Checking proBNP -continue to trend troponin - Admit to telemetry - Will obtain echocardiogram -Unclear if patient has mild amount of fluid overload and this caused the chest discomfort, saturation of 88% and bump in troponin or if other etiology, workup as above # Low blood glucose - Patient's BMP glucose only 64 - Will check glucoses to monitor hypoglycemia so can be noted and intervened upon if patient is having hypoglycemic episodes # Hypoxia -Patient has a history of using oxygen as needed, did drop to 88% -Appears to have some mild lower extremity swelling bilaterally and chest x-ray appears congested -Awaiting proBNP -If elevated can give dose of Lasix -Will check viral panels -Echocardiogram -If workup otherwise not revealing may need to consider CTA, but based on modified Wells criteria PE is unlikely (<4) given a score of 2.5 for malignancy and documentation reveals patient had a DVT in the 90s #leukocytosis -Spoke with Dr. Fernandez regarding patient's elevated white blood cell count as one would not expect Neupogen to cause an increase is early, he concurred but did note that she gets steroids on the day she gets chemo, patient afebrile and vitally stable, suspect this is due to demargination with steroids, it was concurred that empiric antibiotics without concern for source or infection would not be indicated. Continue to monitor, if patient were to develop any fever could consider cultures and empiric antibiotics while awaiting cultures # Suspected lung cancer with metastasis -Follows Dr. Fernandez on outpatient basis -Her oncologist was contacted by ED physician -Will need to continue to follow-up on outpatient basis #GERD -Continue PPI #Hypertension - Blood pressure 112/49 in the ED, will hold losartan to avoid hypotension but if blood pressure remains stable can resume #ARMANDO -Continue home CPAP #Hypothyroidism -Continue Synthroid #DVT ppx: Lovenox subcu Estrella Cabezas MD Charges/Coding Visit Charges Inpatient E&M: 71810 Init Hosp L2
[2025-01-09] MEDS: oxyCODONE 5 MG Tablet 10 MG PO (19:37)
[2025-01-09 20:05] LABS: Pro- Brain NATRIURETIC PEPTIDE 3119 pg/mL (<=900)
--- NOTE | 2025-01-09 20:16 | PCM.HOSP.N ---
Hospitalist Note BNP elevated, will give dose of Lasix
--- NOTE | 2025-01-09 20:22 | ECHOD_ITS ---
Reason For Study Reason For Study: Chest Pain Procedure This was a 2D Doppler, Color Flow transthoracic echocardiogram. Myocardial strain analysis was performed in this exam to aid in the assessment of cardiac function. Exam performed portable in patient room. Left Ventricle Normal size and thickness. The global longitudinal strain = -24.6 % (normal). The LV systolic function is normal. EF is 65 %. Normal diastology for age. Right Ventricle Normal right ventricle. Atria The left and right atria are normal. Mitral Valve Trivial mitral valve insufficiency. Tricuspid Valve Trivial tricuspid valve insufficiency. Unable to estimate RV systolic pressure due to insufficient tricuspid regurgitant envelope. Aortic Valve Trisinus/trileaflet aortic valve. Pulmonic Valve The pulmonic valve is not well visualized. Great Vessels Normal sized aortic root. Pericardium/Pleural No pericardial effusion. MMode/2D Measurements & Calculations LVIDd: 5.1 cm IVSd: 0.82 cm Ao root diam: 3.0 cm LVIDs: 3.4 cm LVPWd: 0.74 cm RVDd: 3.1 cm FS: 33.0 % LAV(MOD-bp): 49.3 ml LVAd ap4: 31.3 cm2 SV(MOD-sp4): 71.7 ml LAV(MOD-bp) Indexed: 29.2 ml/m2 LVLd ap4: 8.0 cm SI(MOD-sp4): 42.5 ml/m2 LAV(MOD-sp2): 49.8 ml EDV(MOD-sp4): 102.6 ml LAV(MOD-sp4): 45.0 ml EDV(sp4-el): 103.6 ml LVAs ap4: 15.3 cm2 LVLs ap4: 6.2 cm ESV(MOD-sp4): 30.9 ml ESV(sp4-el): 32.1 ml EF(MOD-sp4): 69.9 % EF(sp4-el): 69.0 % SV(sp4-): 71.5 ml LA A4 area: 16.7 cm2 LA dimension(2D): 4.0 cm RA A4 area: 10.7 cm2 TAPSE: 1.6 cm Time Measurements MV dec time: 0.39 sec Doppler Measurements & Calculations MV E max can: 87.3 cm/sec Lat Peak E' Can: 10.5 cm/sec Med Peak E' Can: 7.5 cm/sec MV A max can: 123.4 cm/sec E/E' lat: 8.3 E/E' med: 11.6 MV E/A: 0.71 MV V2 max: 165.0 cm/sec MV P1/2t max can: 94.1 cm/sec Ao V2 max: 129.5 cm/sec MV max P.9 mmHg MV P1/2t: 122.5 msec Ao max P.7 mmHg MV V2 mean: 72.9 cm/sec MV mean P.6 mmHg MV dec slope: 225.1 cm/sec2 MV V2 VTI: 41.9 cm MVA(P1/2t): 1.8 cm2 LV V1 max: 124.7 cm/sec LV V1 max P.2 mmHg LV V1 mean P.6 mmHg LV V1 mean: 89.7 cm/sec LV V1 VTI: 26.9 cm ECHO/Echo Complete Interpretation Summary The LV systolic function is normal. EF is 65 %. The global longitudinal strain = -24.6 % (normal). Ordering Physician: Estrella Cabezas Referring Physician: Estrella Cabezas Performed By: Sesar Ferrera RCS
[2025-01-09 20:23] LABS: Troponin T High Sens 4 HR 13 ng/L (<=14)
[2025-01-09] MEDS: Furosemide 20 MG/2 ML VIAL IV (20:51)
[2025-01-09] MEDS: Pantoprazole Sodium 40 MG Tablet PO (21:38)
[2025-01-09] MEDS: Mirtazapine 15 MG Tablet PO (21:38)
[2025-01-09] MEDS: Gabapentin 400 MG Capsule PO (21:38)
--- NOTE | 2025-01-09 21:42 | CPS ---
Patient refused PAP therapy for night time use
--- NOTE | 2025-01-09 22:03 | EKG12_ITS ---
Test Reason : CP ADMIT Blood Pressure : */* mmHG Vent. Rate : 69 BPM Atrial Rate : 69 BPM P-R Int : 178 ms QRS Dur : 76 ms QT Int : 408 ms P-R-T Axes : 50 -9 31 degrees QTcB Int : 437 ms Normal sinus rhythm Low voltage QRS Borderline ECG When compared with ECG of 09-Jan-2025 15:54, MANUAL COMPARISON REQUIRED DATA IS UNCONFIRMED Confirmed by UMBERTO ERNANDEZ, KIRT ([id number]), videotape editor KRISTEN VALENTIN ([id number]) on 01/15/2025 1:36:44 PM Referred By: Estrella Cabezas Confirmed By: KIRT SHIPMAN MD
[2025-01-10] MEDS: MELATONIN 3 MG TABLET 10 MG PO (01:29)
[2025-01-10 01:42] LABS: Bedside Glucose 116 mg/dL (74-106)
[2025-01-10 02:00] VITALS: BP 128/56; PULSE 67; RESP 14; TEMP 37.3; O2SAT 95
[2025-01-10 03:07] VITALS: BMI 25.7
[2025-01-10] MEDS: Gabapentin 400 MG Capsule PO ×2 (05:15→14:21)
[2025-01-10] MEDS: Levothyroxine 25 MCG TABLET PO (05:15)
[2025-01-10 05:35] LABS: Hematocrit 30.9 % (37-47); Hemoglobin 10.4 g/dL (12.0-15.0); Mean Corp Hgb Conc 33.7 g/dL (32-36); Mean Platelet Vol. 9.8 fl (6.2-12.0); POSITIVE COUNT YES; POSITIVE DIFFERENTIAL YES; POSITIVE MORPHOLOGY YES; Platelet Count 419 K/mm3 (150-450); RBC Distribution Width CV 18.6 % (11.6-14.6); RBC Distribution Width SD 59.4 fl (35.1-43.9); Red Blood Count 3.47 M/mm3 (4.2-5.4)
[2025-01-10 05:41] LABS: Bedside Glucose 75 mg/dL (74-106)
[2025-01-10 05:49] LABS: Differential Indicated MANUAL DIFF; White Blood Count 46.9 K/mm3 (4.4-11.0)
[2025-01-10 06:19] LABS: Anion Gap 11 (5-15); BUN 19 mg/dL (4-19); BUN/Creat Ratio 21.6 RATIO (10-20); Calcium,Total 8.5 mg/dL (7.6-11.0); Carbon Dioxide 26.7 mmol/L (21.0-32.0); Chloride 104 mmol/L (98-108); Creatinine, Serum 0.87 mg/dL (0.70-1.20); EST Glomerular Filtration Rate 72 (>60); Glucose 77 mg/dL (70-99); Potassium 3.9 mmol/L (3.3-5.1); Sodium Level 142 mmol/L (133-145)
[2025-01-10 07:24] LABS: Lymphocyte 4 % (19-41); Neutrophil-Band 1 % (0-5); Total Cells Counted 100 (MANUAL DIFF)
[2025-01-10 07:31] LABS: Metamyelocyte 2 % (0-1); Monocyte 1 % (0-10); Neutrophil-Segmented 92 % (47-70)
[2025-01-10 07:33] LABS: Platelet Estimate A (ADEQ)
[2025-01-10 07:34] LABS: Absolute Neutrophil Count 43.6 X10^3/uL (2.0-7.7)
[2025-01-10 07:35] LABS: Absolute Lymphocyte Count 1.88 X10^3/uL (0.83-4.51); Pathologist Review May foll
--- NOTE | 2025-01-10 08:25 | PN.HOSP_ITS ---
Reason for Visit Reason for Visit: Diagnoses Chest pain, unspecified (01/09/25) Objective Data Objective Data Vital Signs: Vital Signs Temp Pulse Resp BP Pulse Ox O2 Del Method O2 Flow Rate 99.1 F 67 14 128/56 H 95 Nasal Cannula 2 01/10/25 02:00 01/10/25 02:00 01/10/25 02:00 01/10/25 02:00 01/10/25 02:00 01/10/25 03:00 01/10/25 03:00 Oxygen Flow Rate (L/min) 2 Oxygen Delivery Method Nasal Cannula Weight: 145 lb 4.554 oz Body Mass Index (BMI) 25.7 Lab / Micro Data 01/10/25 05:20 01/10/25 05:20 Labs: Laboratory Results - last 24 hr 01/09/25 15:50: WBC 18.3 H, RBC 3.83 L, Hgb 11.5 L, Hct 34.6 L, MCV 90.3, MCH 30.0, MCHC 33.2, RDW Std Deviation 60.6 H, RDW Coeff of Brittanie 18.8 H, Plt Count 442, MPV 9.9, Immature Gran % (Auto) 1.800 H, Neut % (Auto) 93.2 H, Lymph % (Auto) 4.7 L, Cherry % (Auto) 0.2, Eos % (Auto) 0.0, Baso % (Auto) 0.1, Absolute Neuts (auto) 17.1 H, Absolute Lymphs (auto) 0.86, Nucleated RBC % 0, Platelet Estimate SLT INC, Sodium 141, Potassium 3.6, Chloride 107, Carbon Dioxide 20.1 L, Anion Gap 14, BUN 17, Creatinine 0.67 L, Estim Creat Clear Calc 61.24, Est GFR (MDRD) Non-Af 94, BUN/Creatinine Ratio 25.5 H, Glucose 64 L, Calcium 8.8, Troponin T High Sens 12 01/09/25 17:58: Troponin T Hi Sens 2 Hr 19 H, NT pro BNP II 3119 H 01/09/25 19:55: Troponin T Hi Sens 4Hr 13 01/10/25 01:21: POC Glucose 116 H 01/10/25 05:20: WBC 46.9 H*, RBC 3.47 L, Hgb 10.4 L, Hct 30.9 L, MCV 89.0, MCH 30.0, MCHC 33.7, RDW Std Deviation 59.4 H, RDW Coeff of Brittanie 18.6 H, Plt Count 419, MPV 9.8, Neut % (Auto) Not Reportable, Absolute Neuts (auto) 43.6 H, Absolute Lymphs (auto) 1.88, Total Counted 100, Neutrophils % (Manual) 92 H, Band Neutrophils % 1, Lymphocytes % (Manual) 4 L, Monocytes % (Manual) 1, M etamyelocytes % 2 H, Diff Path Review January foll, Platelet Estimate A, Sodium 142, Potassium 3.9, Chloride 104, Carbon Dioxide 26.7, Anion Gap 11, BUN 19, Creatinine 0.87, Estim Creat Clear Calc 54.90, Est GFR (MDRD) Non-Af 72, B UN/Creatinine Ratio 21.6 H, Glucose 77, Calcium 8.5, POC Glucose 75 Micro: Microbiology 01/09/25 05:20 Nasal Secretion SARS-CoV-2 Antigen (Rapid) - Final 01/09/25 20:30 Mucosa - Nasopharyngeal Respiratory Panel (PCR) - Final Radiography Diagnostic Testing: Radiology Impression Chest X-Ray 01/09/25 16:09 IMPRESSION: Interstitial and patchy airspace disease, may relate to congestion and edema. Reading Location: [facility] Assessment & Plan Assessment/Plan (1) Chest pain: PLAN: Plan 69-year-old female was admitted with sternal chest pain started while driving. History of lung cancer, received chemotherapy yesterday and Neupogen patient states chest pain is now gone. Complain of nausea and shortness of breath. On 2 L of home oxygen as needed # Chest pain: Patient is being admitted in PCU. Chest x-ray image is reviewed and shows hilar enlarged, interstitial and patchy airspace disease - Initial troponin 12 with a repeat of 19, unclear significance - Chest x-ray did query congestion and edema - Checking proBNP -continue to trend troponin - Admit to telemetry - Will obtain echocardiogram 2D echo in March 2020 shows EF 65% with no evidence of diastolic dysfunction. No RWMA. No Doppler evidence for ASD. # Low blood glucose - Patient's BMP glucose only 64 - Will check glucoses to monitor hypoglycemia so can be noted and intervened upon if patient is having hypoglycemic episodes # Hypoxia -Patient has a history of using oxygen as needed, did drop to 88% -Appears to have some mild lower extremity swelling bilaterally and chest x-ray appears congested -Awaiting proBNP -If elevated can give dose of Lasix -Will check viral panels -Echocardiogram -If workup otherwise not revealing may need to consider CTA, but based on modified Wells criteria PE is unlikely (<4) given a score of 2.5 for malignancy and documentation reveals patient had a DVT in the 90s #leukocytosis -Spoke with Dr. Fernandez regarding patient's elevated white blood cell count as one would not expect Neupogen to cause an increase is early, he concurred but did note that she gets steroids on the day she gets chemo, patient afebrile and vitally stable, suspect this is due to demargination with steroids, it was concurred that empiric antibiotics without concern for source or infection would not be indicated. Continue to monitor, if patient were to develop any fever could consider cultures and empiric antibiotics while awaiting cultures # Suspected lung cancer with metastasis -Follows Dr. Fernandez on outpatient basis -Her oncologist was contacted by ED physician -Will need to continue to follow-up on outpatient basis #GERD -Continue PPI #Hypertension - Blood pressure 112/49 in the ED, will hold losartan to avoid hypotension but if blood pressure remains stable can resume #ARMANDO -Continue home CPAP #Hypothyroidism -Continue Synthroid #DVT ppx: Lovenox subcu
[2025-01-10 09:16] VITALS: BP 138/68; PULSE 76; RESP 14; TEMP 37.1; O2SAT 94
[2025-01-10] MEDS: Enoxaparin 40 MG/0.4 ML Syringe SC (09:27)
[2025-01-10] MEDS: Pantoprazole Sodium 40 MG Tablet PO (09:27)
[2025-01-10] MEDS: oxyCODONE 5 MG Tablet 10 MG PO ×2 (09:27→14:21)
--- NOTE | 2025-01-10 14:25 | DCINST_ITS ---
Discharge Instructions Diet Discharge Diet: No restrictions DC O2, CPAP, BIPAP needs Home O2 Discharge instructions: No Dressing / Incision Discharge Activity: Return to Normal Activity Weight Bearing Status: Weight bearing as tolerated Dressing / Incision Call your doctor if you observe: Fever of 101 or Higher, Coldness, Increased Pain, Numbness or Tingling, Change in Color, Inability to urinate, Inability to have a bowel movement, Shortness of breath, Dizziness, Fainting spells, Swelling in the ankles, Chest pain, Prolonged hiccupping, Increased palpitations (irregular heartbeat) and Calf discomfort Follow Up Care When: IN 2 WEEKS Test Results: Test results from this visit will be discussed in further detail at your follow- up appointment, if applicable. Discharge Plan Admission Admit Date/Time: 01/09/25 19:31 Primary Reason for Your Visit: Atypical chest pain, ACS ruled out. Probably musculoskeletal Attending Provider: Jassi Borden Primary Care Provider: Fabricio Lemos Consulting Providers: Estrella Cabezas Instructions Additional Instructions / Restrictions: Recommended CBC with differential after 1 week to see normalization of leukocytosis. Discharge Orders/Prescriptions Prescriptions: Continued (DME) Disability Placard See Rx Instructions .Route .MEDSUPPLY Qty: 1 0RF Rx Instructions: Expires 09/09/2025 albuterol sulfate 90 mcg/actuation HFA aerosol inhaler 2 puff inhalation Q4H PRN (Reason: shortness of breath or wheezing) ondansetron HCl 8 mg tablet 8 mg PO Q8H PRN (Reason: nausea and vomiting) mirtazapine 15 mg tablet 15 mg PO QHS Qty: 30 3RF levothyroxine 25 MCG tablet 25 mcg PO DAILY gabapentin 400 MG capsule 400 mg PO TID potassium citrate 10 mEq (1,080 mg) tablet extended release 20 meq PO DAILY Patient Comments: pt unsure if she takes this medication fluticasone propionate [Flonase Allergy Relief] 50 mcg/actuation spray,suspension 1 spray intranasal DAILY PRN (Reason: nasal congestion) Rx Instructions: administer into each nostril cholecalciferol (vitamin D3) [Vitamin D3] 25 mcg (1,000 unit) capsule 25 mcg PO DAILY losartan 25 mg tablet 25 mg PO DAILY omeprazole 40 MG capsule,delayed release(DR/EC) 40 mg PO BID docusate sodium 100 mg Capsule 100 mg PO BID PRN (Reason: constipation) Rx Instructions: Hold for diarrhea oxycodone 10 mg tablet 10 mg PO Q4H PRN (Reason: pain) calcium carbonate [Calcium 600] 600 mg calcium (1,500 mg) tablet 600 mg PO DAILY lidocaine-prilocaine 2.5-2.5 % cream 1 applic topical ONCE PRN (Reason: port access) 30 Days Qty: 30 2RF prochlorperazine maleate 10 mg tablet 10 mg PO Q6H PRN (Reason: nausea and vomiting) Qty: 30 2RF Referrals / Follow Up: Fabricio Lemos MD [Primary Care Provider] - Sherice Fernandez MD [Med Staff - Active Staff] - Within 1 Month Disposition Disposition (needs filled in before D/C Order can be placed): Home, Self Care
--- NOTE | 2025-01-10 14:28 | PCM.DC.SUM ---
Providers Date of Admission: 01/09/25 Date of Discharge: 01/10/25 Primary Care Physician: Dr. Fabricio Lemos MD Reason For Visit: EPISODE OF CHEST PAIN Diagnosis Discharge Diagnosis (1) Chest pain: Status: Acute Code(s): R07.9 - Chest pain, unspecified Plan 69-year-old female was admitted with sternal chest pain started while driving. History of lung cancer, received chemotherapy yesterday and Neupogen patient states chest pain is now gone. Complain of nausea and shortness of breath. On 2 L of home oxygen as needed # Atypical chest pain, exact etiology unclear: Patient is being admitted in PCU. Chest x-ray image is reviewed and shows hilar enlarged, interstitial and patchy airspace disease - Initial troponin 12 with a repeat of 19 and third on 13. proBNP 3119. ACS ruled out - Chest x-ray did query congestion and edema - Lasix was given and patient currently euvolemic. 2D echo was done on 01/11/2020 Interpretation Summary The LV systolic function is normal. EF is 65 %. The global longitudinal strain = -24.6 % (normal). Currently patient is euvolemic. Prescription for furosemide 20 mg daily as needed for leg swelling/SOB/dyspnea given. Follow-up with PCP 2D echo in March 2020 shows EF 65% with no evidence of diastolic dysfunction. No RWMA. No Doppler evidence for ASD. # mild hyperglycemia - Patient's BMP glucose only 64. Repleted with 116, 75. Resolved # MildProbably due to hypoxia mild pulmonary edema due to acute on chronic HFpEF -Patient has a history of using oxygen as needed, did drop to 88% #leukocytosis: Admitting physician discussed with Dr. Fernandez regarding patient's elevated white blood cell count. Most likely due to steroid which causes demargination. Patient had Neupogen but usually continues leukocytosis after 3 to 4 days # Suspected lung cancer with metastasis -Follows Dr. Fernandez on outpatient basis -Her oncologist was contacted by ED physician Follow-up Dr. Fernandez #GERD -Continue PPI #Hypertension - Blood pressure 112/49 in the ED. On low-dose losartan #ARMANDO -Continue home CPAP #Hypothyroidism -Continue Synthroid #DVT ppx: Lovenox subcu Discharge medication reconciliation done. Discharge follow-up instructions completed. Discharge process discussed with the patient and all questions were answered to patient's satisfaction. Follow with PCP in 1 to 2 weeks Total time spent, exact 35 minutes on discharge meds reconciliation, examination, coordination of care with nurses and ancillary staff, review of imaging and blood test and discussion with the patient on follow-up instructions. Medications at Discharge Home Medications levothyroxine 25 mcg tablet 25 mcg PO DAILY thyroid 11/03/17 gabapentin 400 mg capsule 400 mg PO TID nerve pain 07/16/20 Disability Placard #1 ea 09/15/20 potassium citrate 10 mEq (1,080 mg) tablet,extended release 20 meq PO DAILY potassium 01/26/22 albuterol sulfate 90 mcg/actuation aerosol inhaler 2 puff inhalation Q4H PRN shortness of breath or wheezing 06/13/23 fluticasone propionate 50 mcg/actuation nasal spray,suspension (Flonase Allergy Relief) 1 spray intranasal DAILY PRN nasal congestion 05/28/24 cholecalciferol (vitamin D3) 25 mcg (1,000 unit) capsule (Vitamin D3) 25 mcg PO DAILY vitamin 11/12/24 losartan 25 mg tablet 25 mg PO DAILY blood pressure 11/12/24 ondansetron HCl 8 mg tablet 8 mg PO Q8H PRN nausea and vomiting 11/24/24 docusate sodium 100 mg capsule 100 mg PO BID PRN constipation 12/11/24 omeprazole 40 mg capsule,delayed release 40 mg PO BID gerd 12/11/24 lidocaine-prilocaine 2.5 %-2.5 % topical cream 1 applic topical ONCE PRN port access 30 days #30 grams 12/15/24 prochlorperazine maleate 10 mg tablet 10 mg PO Q6H PRN nausea and vomiting #30 tabs 12/15/24 mirtazapine 15 mg tablet 15 mg PO QHS sleep #30 tabs 12/29/24 calcium carbonate (Calcium 600) 600 mg PO DAILY suppliment 01/09/25 oxycodone 10 mg tablet 10 mg PO Q4H PRN pain 01/09/25 furosemide 20 mg tablet 20 mg PO DAILY PRN leg swelling/SOB #30 tabs 01/10/25 Physical Exam Narrative Seen and examined. The chest pain lasted for about 5 minutes and has resolved. No acute issues after that. Physical exam Physical exam: General: Alert, Oriented x3, Cooperative HEENT: Atraumatic, PERRLA, EOMI, Normocephalic Oral: Oral mucosa moist no Gingival or Mucosal Lesions/ Ulcerations Neck: Supple, No JVD, Negative Carotid Bruits Chest wall/Lungs: Air entry diminished in bilateral lung bases. No crepitation/rhonchi Cardiovascular: Regular rate, Regular Rhythm, Normal S1, Normal S2, systolic murmur lungs Abdomen: Bowel Sounds Present, Soft, Non Tender, Non-Distended : No dysuria. No renal angle tenderness. No suprapubic tenderness. Extremities: No edema, Capillary Refill Less than 3 Seconds Skin: No rashes, No breakdown Musculoskeletal: No Tenderness to Palpation of Joints or Extremities Neurological: Cranial nerves II-XII grossly intact, DTR 2+/4. No acute focal neurological deficit. Psych/Mental Status: Normal Affect, Appropriate. Medical Records Data Medical Nutrition Assessment Dietitian: Malnutrition Criteria Met Start: 01/10/25 14:09 Freq: Status: Active Protocol: Document 01/10/25 14:09 RMA (Rec: 01/10/25 14:09 RMA [id number]) Nutrition Malnutrition Evidence of Yes Malnutrition Exists Malnutrition (severe Chronic ): Evidenced By Suboptimal Energy Intake (Severe),Weight Loss (Severe) Clinical Problem Chronic Disease or Condition Related Malnutrition Etiology severe protein-calorie malnutrition in the context of chronic disease related to inadequate energy intake and increased energy expenditure Signs/Symptoms as evidenced by ~7% unintentional weight loss x 2 months and PO meeting less than 75% estimated nutrition needs x 2 months Status Active Problem Recommendation Dietitian Will liberalize diet to Regular to help optimize oral Recommendations/ intake given signs/symptoms of malnutrition. Changes Will add 120mL ensure plus HP 4 times per day w/ medpass. Weight / BMI Weight Weight: 145 lb 4.554 oz Body Mass Index (BMI) 25.7 ABG / Lab / Microbiology Data 01/10/25 05:20 01/10/25 05:20 Laboratory: Laboratory Results - last 24 hr 01/09/25 15:50: WBC 18.3 H, RBC 3.83 L, Hgb 11.5 L, Hct 34.6 L, MCV 90.3, MCH 30.0, MCHC 33.2, RDW Std Deviation 60.6 H, RDW Coeff of Brittanie 18.8 H, Plt Count 442, MPV 9.9, Immature Gran % (Auto) 1.800 H, Neut % (Auto) 93.2 H, Lymph % (Auto) 4.7 L, Platte % (Auto) 0.2, Eos % (Auto) 0.0, Baso % (Auto) 0.1, Absolute Neuts (auto) 17.1 H, Absolute Lymphs (auto) 0.86, Nucleated RBC % 0, Platelet Estimate SLT INC, Sodium 141, Potassium 3.6, Chloride 107, Carbon Dioxide 20.1 L, Anion Gap 14, BUN 17, Creatinine 0.67 L, Estim Creat Clear Calc 61.24, Est GFR (MDRD) Non-Af 94, BUN/Creatinine Ratio 25.5 H, Glucose 64 L, Calcium 8.8, Troponin T High Sens 12 01/09/25 17:58: Troponin T Hi Sens 2 Hr 19 H, NT pro BNP II 3119 H 01/09/25 19:55: Troponin T Hi Sens 4Hr 13 01/10/25 01:21: POC Glucose 116 H 01/10/25 05:20: WBC 46.9 H*, RBC 3.47 L, Hgb 10.4 L, Hct 30.9 L, MCV 89.0, MCH 30.0, MCHC 33.7, RDW Std Deviation 59.4 H, RDW Coeff of Brittanie 18.6 H, Plt Count 419, MPV 9.8, Neut % (Auto) Not Reportable, Absolute Neuts (auto) 43.6 H, Absolute Lymphs (auto) 1.88, Total Counted 100, Neutrophils % (Manual) 92 H, Band Neutrophils % 1, Lymphocytes % (Manual) 4 L, Monocytes % (Manual) 1, Metamyelocytes % 2 H, Diff Path Review January, Platelet Estimate A, Sodium 142, Potassium 3.9, Chloride 104, Carbon Dioxide 26.7, Anion Gap 11, BUN 19, Creatinine 0.87, Estim Creat Clear Calc 54.90, Est GFR (MDRD) Non-Af 72, BUN/Creatinine Ratio 21.6 H, Glucose 77, Calcium 8.5, POC Glucose 75 Microbiology: Microbiology 01/09/25 05:20 Nasal Secretion SARS-CoV-2 Antigen (Rapid) - Final 01/09/25 20:30 Mucosa - Nasopharyngeal Respiratory Panel (PCR) - Final Radiography Diagnostic Testing: Radiology Impression Chest X-Ray 01/09/25 16:09 IMPRESSION: Interstitial and patchy airspace disease, may relate to congestion and edema. Reading Location: [facility] Echocardiogram 01/09/25 20:22 Interpretation Summary The LV systolic function is normal. EF is 65 %. The global longitudinal strain = -24.6 % (normal). Ordering Physician: Estrella Cabezas Referring Physician: Estrella Cabezas Performed By: Sesar Ferrera RCS D/C Instructions Discharge Diet: No restrictions Weight Bearing Status: Weight bearing as tolerated Call your doctor if you observe: Fever of 101 or Higher, Coldness, Increased Pain, Numbness or Tingling, Change in Color, Inability to urinate, Inability to have a bowel movement, Shortness of breath, Dizziness, Fainting spells, Swelling in the ankles, Chest pain, Prolonged hiccupping, Increased palpitations (irregular heartbeat) and Calf discomfort DC O2, CPAP, BIPAP Needs Home O2 Discharge instructions: No When: IN 2 WEEKS Meaningful Use Info Meaningful Use Meaningful Use Diagnoses (Choose all that apply): CHF CHF DAVID/ARB ordered at discharge?: Yes Documented LVEF (%): 55 Ischemic Stroke Statin Dosing Therapy Reference: STATIN DOSE THERAPY REFERENCE: * Patients > 75 years receive moderate or high dose statin therapy. * Patients 75 years or YOUNGER should receive HIGH intensity statin dose unless contraindicated. You will be required to document reason for non-treatment if statin daily dose does not meet guidelines. HIGH DOSE STATIN THERAPY DAILY Atorvastatin > than or = to 40 mg Rosuvastatin > than or = to 20 mg Amlodipine + Atorvastatin > than or = to 2.5/40 mg Ezetimibe + Simvastatin 10/80 mg Simvastatin 80mg Discharge Plan Admission Admit Date/Time: 01/09/25 19:31 Primary Reason for Your Visit: Atypical chest pain, ACS ruled out. Probably musculoskeletal Attending Provider: Jassi Borden Primary Care Provider: Fabricio Lemos Consulting Providers: Estrella Cabezas Instructions Additional Instructions / Restrictions: Recommended CBC with differential after 1 week to see normalization of leukocytosis. Discharge Orders/Prescriptions Prescriptions: New furosemide 20 mg tablet 20 mg PO DAILY PRN (Reason: leg swelling/SOB) Qty: 30 0RF Continued (DME) Disability Placard See Rx Instructions .Route .MEDSUPPLY Qty: 1 0RF Rx Instructions: Expires 09/09/2025 albuterol sulfate 90 mcg/actuation HFA aerosol inhaler 2 puff inhalation Q4H PRN (Reason: shortness of breath or wheezing) ondansetron HCl 8 mg tablet 8 mg PO Q8H PRN (Reason: nausea and vomiting) mirtazapine 15 mg tablet 15 mg PO QHS Qty: 30 3RF levothyroxine 25 MCG tablet 25 mcg PO DAILY gabapentin 400 MG capsule 400 mg PO TID potassium citrate 10 mEq (1,080 mg) tablet extended release 20 meq PO DAILY Patient Comments: pt unsure if she takes this medication fluticasone propionate [Flonase Allergy Relief] 50 mcg/actuation spray,suspension 1 spray intranasal DAILY PRN (Reason: nasal congestion) Rx Instructions: administer into each nostril cholecalciferol (vitamin D3) [Vitamin D3] 25 mcg (1,000 unit) capsule 25 mcg PO DAILY losartan 25 mg tablet 25 mg PO DAILY omeprazole 40 MG capsule,delayed release(DR/EC) 40 mg PO BID docusate sodium 100 mg Capsule 100 mg PO BID PRN (Reason: constipation) Rx Instructions: Hold for diarrhea oxycodone 10 mg tablet 10 mg PO Q4H PRN (Reason: pain) calcium carbonate [Calcium 600] 600 mg calcium (1,500 mg) tablet 600 mg PO DAILY lidocaine-prilocaine 2.5-2.5 % cream 1 applic topical ONCE PRN (Reason: port access) 30 Days Qty: 30 2RF prochlorperazine maleate 10 mg tablet 10 mg PO Q6H PRN (Reason: nausea and vomiting) Qty: 30 2RF Referrals / Follow Up: Fabricio Lemos MD [Primary Care Provider] - Sherice Fernandez MD [Med Staff - Active Staff] - Within 1 Month Disposition Disposition (needs filled in before D/C Order can be placed): Home, Self Care Charges/Coding Visit Charges Inpatient E&M: 30854 Disch Hosp >30min
[2025-01-10 14:35] VITALS: BP 118/65; PULSE 72; RESP 14; TEMP 36.9; O2SAT 94
[2025-01-10] MEDS: 0.9 % NaCl (Sterile) Posiflush 10 mL IV (14:42)
[2025-01-10 14:47] VITALS: O2SAT 92; O2SAT 95
== END 2025-01-10 14:28 | disposition home or self-care (01) ==
LOC: ED 19:14 → PCU 19:26
PROVIDERS: Admitting Provider Internal Medicine; Emergency Provider Emergency Medicine; PCP Family Medicine; Referring Provider Internal Medicine; Visit Provider Internal Medicine
DX: R07.89 Other chest pain (principal); C78.7 Secondary malignant neoplasm of liver and intrahepatic bile duct; C79.51 Secondary malignant neoplasm of bone; C79.89 Secondary malignant neoplasm of other specified sites; C34.90 Malignant neoplasm of unspecified part of unspecified bronchus or lung; I11.0 Hypertensive heart disease with heart failure; I50.33 Acute on chronic diastolic (congestive) heart failure; Z87.891 Personal history of nicotine dependence; K21.9 Gastro-esophageal reflux disease without esophagitis; E44.0 Moderate protein-calorie malnutrition; R79.89 Other specified abnormal findings of blood chemistry; E78.00 Pure hypercholesterolemia, unspecified; Z86.718 Personal history of other venous thrombosis and embolism; R06.02 Shortness of breath; R11.0 Nausea; E03.9 Hypothyroidism, unspecified; Z99.81 Dependence on supplemental oxygen; Z79.899 Other long term (current) drug therapy; Z79.890 Hormone replacement therapy; G47.33 Obstructive sleep apnea (adult) (pediatric); J45.909 Unspecified asthma, uncomplicated; E16.2 Hypoglycemia, unspecified; R73.9 Hyperglycemia, unspecified; J81.1 Chronic pulmonary edema; Z68.25 Body mass index [BMI] 25.0-25.9, adult
CPT/HCPCS: 36591; 71045; 80048; 82962; 83880; 84484; 85025; 87426; 87633; 93005; 93306; 94668; 96372; 96374; 97802; 99221; 99285; A4216; G0378; J1940

== ENCOUNTER 2025-02-16 06:59 | Day surgery (SDC) | payer MEDICARE, SELFPAY ==
--- NOTE | 2025-02-11 20:20 | PAT.ANESEVAL ---
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 When Was Last Pacemaker Check QUESTION #4 FULL TEXT: You/Your Family Experience fever (hyperthermia) with Anesthesia Last Oral Intake Last Oral intake: Last Oral Intake NPO since Meds taken in AM with sips of water? 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 - custom home installer: PONV - custom home installer Female Yes 02/11/25 15:02 HX of Motion Sickness No 02/11/25 15:02 HX of N/V After Surgery No 02/11/25 15:02 Non-Smoker Yes 02/11/25 15:02 Duration of Surgery greater No 02/11/25 15:02 than 60 minutes Number of Risk Factors 2 02/11/25 15:02 PONV Score Moderate Risk 02/11/25 15:02 Height & Weight Height & Weight: Anesthesia: Height & Weight Height 5 ft 3 in 02/05/25 12:48 Respiratory Assessment Respiratory Assessment - custom home installer: Respiratory Tract Infection Hx - custom home installer Hx Respiratory Tract Infection No 02/11/25 15:02 STOP Sleep Apnea STOP Sleep Apnea - custom home installer: STOP Sleep Apnea - custom home installer Hx Hypertension Yes: CONTROLLED WITH MED 02/11/25 15:02 Hx Sleep Apnea Yes 02/11/25 15:02 CPAP Yes: NONCOMPLIANT 02/11/25 15:02 BIPAP No 02/11/25 15:02 Do you snore loudly (louder than talking or can be heard Do you often feel tired/ fatigued/ sleepy during daytime? Has anyone observed you stop breathing during sleep? STOP Results Positive 02/11/25 15:02 QUESTION #5 FULL TEXT : Do you snore loudly (louder than talking or can be heard through closed doors)? 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 Specify any problems Hx of Preganancy in last 3 No 02/11/25 15:02 Months Nurse Filling Out Transfusion DSCHRIBER 02/11/25 15:02 & Questions: Date: 02/11/25 02/11/25 15:02 Time: 15:07 02/11/25 15:02 Patient unable to answer at this time (ie. 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 Loss of hearing Wears glasses Wears dentures Post-menopausal Thyroid disease Arthritis High cholesterol DVT (deep venous thrombosis) Injury of back Migraine headache Syncope History of hiatal hernia History of ulceration History of diverticulitis Former smoker Asthma CPAP (continuous positive airway pressure) dependence Leg cramps Shortness of breath on exertion History of pain when walking Hypertension Heart murmur History of echocardiogram History of stress test Cardiology follow-up encounter Bradycardia Chronic respiratory failure with hypoxia Smoking greater than 40 pack years Pulmonary hypertension Bronchiectasis History of staph infection Hypoxia Home Medications ?Medication ?Instructions ?Recorded ?Last Taken ?Type levothyroxine 25 mcg tablet 25 mcg PO DAILY thyroid 11/03/17 01/09/25 History gabapentin 400 mg capsule 400 mg PO TID nerve pain 07/16/20 01/09/25 History Disability Placard #1 ea 09/15/20 Unknown Rx potassium citrate 10 mEq (1,080 20 meq PO DAILY potassium 01/26/22 12/11/24 History mg) tablet,extended release albuterol sulfate 90 mcg/actuation 2 puff inhalation Q4H PRN 06/13/23 Unknown History aerosol inhaler shortness of breath or wheezing fluticasone propionate 50 1 spray intranasal DAILY PRN nasal 05/28/24 Unknown History mcg/actuation nasal congestion spray,suspension (Flonase Allergy Relief) losartan 25 mg tablet 25 mg PO DAILY blood pressure 11/12/24 01/09/25 History ondansetron HCl 8 mg tablet 8 mg PO Q8H PRN nausea and vomiting 11/24/24 01/09/25 History docusate sodium 100 mg capsule 100 mg PO BID PRN constipation 12/11/24 Unknown History omeprazole 40 mg capsule,delayed 40 mg PO BID gerd 12/11/24 01/09/25 History release lidocaine-prilocaine 2.5 %-2.5 % 1 applic topical ONCE PRN port 12/15/24 Unknown Rx topical cream access 30 days #30 grams prochlorperazine maleate 10 mg 10 mg PO Q6H PRN nausea and 12/15/24 01/07/25 Rx tablet vomiting #30 tabs mirtazapine 15 mg tablet 15 mg PO QHS sleep #30 tabs 12/29/24 01/08/25 Rx oxycodone 10 mg tablet 10 mg PO Q4H PRN pain 01/09/25 01/09/25 History furosemide 20 mg tablet 20 mg PO DAILY PRN leg 01/10/25 Unknown Rx swelling/SOB #30 tabs Allergy/AdvReac Type Severity Reaction Status Date / Time DAVID Inhibitors Allergy Rash Verified 02/11/25 14:58 codeine Allergy Vomiting Verified 02/11/25 14:58 walnut Allergy Food Verified 02/11/25 14:58 Allergy prednisone AdvReac Other Verified 02/11/25 14:58 Sdautmv-YJN-UrS Reductase AdvReac cramps Verified 02/11/25 14:58 Inhibitor (Vygcswa-Fgo-Yuv Reductase Inhibitor) Family History Mother Cancer Hx Lung CA. Father Cancer Hx Lung CA. Surgical History (Updated 02/11/25 @ 15:14 by Pricila Pleitez) History of vascular access device Hx of right cataract extraction Hx of left cataract extraction Hx of breast reconstruction Hx of foot surgery Hx of surgical amputation of finger Hx of elbow surgery History of carpal tunnel surgery Hx of vein stripping History of cholecystectomy History of back surgery History of eye surgery History of breast biopsy History of tubal ligation History of History of appendectomy History of tonsillectomy Social History household members: spouse Smoking Status: Former smoker quit date: 08/17/16 Tobacco: How many years used: 45 alcohol intake: never Audit: Pertinent Findings Pertinent Findings EKG Perinent findings: 01/09/2025. Normal sinus rhythm. Low voltage QRS. Stress test pertinent findings: March 2023. Negative stress test. Echo (EF%) pertinent findings: 01/10/2025. EF of 65%. No aortic stenosis noted. Consult pertinent findings: December 10, 2023. 1. Dyspnea-negative stress test and normal ejection fraction, patient is stable?no further workup necessary. 2. Hypertension Additional pertinent findings: Patient had MAC anesthesia on 12/12/2024. She tolerated the procedure well. Recommendation Anesthesia Recommendation Anesthesia recommendation: OPTIMIZED for anesthesia
[2025-02-16] MEDS: MethylPREDNISolone Acetate 80 MG/ML Vial (06:59)
[2025-02-16 07:38] VITALS: BP 126/68; PULSE 80; RESP 18; TEMP 37; O2SAT 96; BMI 25.7
[2025-02-16] MEDS: Lactated Ringers 1,000 ML 15 ML IV (07:42)
--- NOTE | 2025-02-16 08:09 | PCM.PRE.AN2 ---
ASA Classification* ASA Classification ASA Classification: 3 Assessment & Plan Anesthesia* Anesthesia Assessment Anesthesia Assessment: Discussed sedation and/or anesthesia options, risks, benefits, and alternatives with patient/parents/legal guardian/POA. Questions invited. The patient/parents/legal guardian/POA seems to understand and agrees to proceed with anesthesia plan. Reviewed the physical assessment, medical history, allergy history and patient home medications list prior to surgery/procedure/anesthetic and documented any changes. Performed airway and anesthesia risk assessments. Anesthesia Type Anesthesia Type: MAC History Source History Obtained from:: Patient and Chart Anesthesia Focused Assessment* Temperature: 98.6 F Pulse Rate: 80 Blood Pressure: 126/68 Respiratory Rate: 18 Pulse Ox: 96 Oxygen Delivery Method: Room Air Airway Assessment Mouth opens: >3 cm Mallampati Score: II Teeth Condition: Intact, Dentures, Lower (original), Missing (bottom) and Upper (detures) Neck Range of motion (ROM): Full ROM Focused Labs Anesthesia Preop lab: CBC WBC 5.7 K/mm3 (4.4-11.0) 02/03/25 08:05 02/03/25 RBC 3.54 M/mm3 (4.2-5.4) L 02/03/25 08:05 02/03/25 Hgb 10.7 g/dL (12.0-15.0) L 02/03/25 08:05 02/03/25 Hct 32.6 % (37-47) L 02/03/25 08:05 02/03/25 Plt Count 356 K/mm3 (150-450) 02/03/25 08:05 02/03/25 CHEMISTRY Potassium 4.0 mmol/L (3.3-5.1) 02/03/25 08:05 02/03/25 Sodium 141 mmol/L (133-145) 02/03/25 08:05 02/03/25 Magnesium 1.5 mg/dL (1.5-2.2) 02/03/25 08:05 02/03/25 Phosphorus 4.0 mg/dL (2.7-4.5) 02/03/25 08:05 02/03/25 BUN 7 mg/dL (4-19) 02/03/25 08:05 02/03/25 Creatinine 0.82 mg/dL (0.70-1.20) 02/03/25 08:05 02/03/25 Glucose 108 mg/dL (70-99) H 02/03/25 08:05 02/03/25 POC Glucose 75 mg/dL (74-106) 01/10/25 05:20 01/10/25 TSH 3.490 uIU/mL (0.300-4.200) 02/03/25 08:05 02/03/25 COAG PT 14.2 SECONDS (11.7-14.9) 11/12/24 10:03 11/12/24 Pre-Assessment Diagnosis/Proposed Procedure Planned Operative Procedure(s): LEFT LUMBAR TRANSFORAMINAL EPIDURAL L4-5 S1 UNDER FLUOROSCOPY Anesthesia History Anesthesia History - supervisor contact lens: Anesthesia History - supervisor contact lens Hx Hospitalization Yes: 12/2024 DUE TO REACTION 02/11/25 15:02 TO CHEMO MED Any Problems With Anesthesia No 02/11/25 15:02 Cholinesterase deficiency No 02/11/25 15:02 You/Your Family Experience No 02/11/25 15:02 fever (hyperthermia) with Relationship Recent Exposure to Contagious No 02/16/25 07:38 Disease Does patient have nerve No 02/11/25 15:02 stimulator Patient instructed to have device shut off --Does patient have Pacemaker No 02/16/25 07:38 or ICD? When Was Last Pacemaker Check QUESTION #4 FULL TEXT: You/Your Family Experience fever (hyperthermia) with Anesthesia Last Oral Intake Last Oral intake: Last Oral Intake NPO since 21:00 02/16/25 07:38 Meds taken in AM with sips of water? 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 - supervisor contact lens: PONV - supervisor contact lens Female Yes 02/11/25 15:02 HX of Motion Sickness No 02/11/25 15:02 HX of N/V After Surgery No 02/11/25 15:02 Non-Smoker Yes 02/11/25 15:02 Duration of Surgery greater No 02/11/25 15:02 than 60 minutes Number of Risk Factors 2 02/11/25 15:02 PONV Score Moderate Risk 02/11/25 15:02 Height & Weight Height & Weight: Anesthesia: Height & Weight Height 5 ft 3 in 02/16/25 07:38 Weight: 66 kg 02/16/25 07:38 Body Mass Index (BMI) 25.7 02/16/25 07:38 Respiratory Assessment Respiratory Assessment - supervisor contact lens: Respiratory Tract Infection Hx - supervisor contact lens Hx Respiratory Tract Infection No 02/11/25 15:02 STOP Sleep Apnea STOP Sleep Apnea - supervisor contact lens: STOP Sleep Apnea - supervisor contact lens Hx Hypertension Yes: CONTROLLED WITH MED 02/11/25 15:02 Hx Sleep Apnea Yes 02/11/25 15:02 CPAP Yes: NONCOMPLIANT 02/11/25 15:02 BIPAP No 02/11/25 15:02 Do you snore loudly (louder than talking or can be heard Do you often feel tired/ fatigued/ sleepy during daytime? Has anyone observed you stop breathing during sleep? STOP Results Positive 02/11/25 15:02 QUESTION #5 FULL TEXT : Do you snore loudly (louder than talking or can be heard through closed doors)? 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 Specify any problems Hx of Preganancy in last 3 No 02/11/25 15:02 Months Nurse Filling Out Transfusion DSCHRIBER 02/11/25 15:02 & Questions: Date: 02/11/25 02/11/25 15:02 Time: 15:07 02/11/25 15:02 Patient unable to answer at this time (ie. confused, unrespo /Reproduction History /Reproductive History - supervisor contact lens: /Reproductive Hx- supervisor contact lens Hx Now No 02/11/25 15:02 Gestational Age (in weeks): EDC: Hx Hx Para Hx Section SAB No 02/11/25 15:02 Active Medications Active Medications: Current Medications Generic Name Dose Route Start Last Admin Trade Name Freq PRN Reason Stop Dose Admin Lactated Ringer's 1,000 mls @ 15 mls/hr 02/16/25 07:15 02/16/25 07:42 IV 15 mls/hr .Q48H DIAZ Administration PFSH Medical History (Updated 02/11/25 @ 15:16 by Pricila Pleitez) Cancer Difficulty swallowing Hypothyroidism GERD (gastroesophageal reflux disease) Chest pain Encounter for chemotherapy management Internal hemorrhoids Current use of steroid medication Ambulates with cane Back pain On home oxygen therapy High grade neuroendocrine carcinoma of lung Jaundice Regional lymph node metastasis present Metastasis to bone Small cell lung cancer Loss of hearing Wears glasses Wears dentures Post-menopausal Thyroid disease Arthritis High cholesterol DVT (deep venous thrombosis) Injury of back Migraine headache Syncope History of hiatal hernia History of ulceration History of diverticulitis Former smoker Asthma CPAP (continuous positive airway pressure) dependence Leg cramps Shortness of breath on exertion History of pain when walking Hypertension Heart murmur History of echocardiogram History of stress test Cardiology follow-up encounter Bradycardia Chronic respiratory failure with hypoxia Smoking greater than 40 pack years Pulmonary hypertension Bronchiectasis History of staph infection Hypoxia Home Medications ?Medication ?Instructions ?Recorded ?Last Taken ?Type levothyroxine 25 mcg tablet 25 mcg PO DAILY thyroid 11/03/17 02/16/25 05:30 History gabapentin 400 mg capsule 400 mg PO TID nerve pain 07/16/20 02/16/25 05:30 History Disability Placard #1 ea 09/15/20 Unknown Rx potassium citrate 10 mEq (1,080 20 meq PO DAILY potassium 01/26/22 12/11/24 History mg) tablet,extended release albuterol sulfate 90 mcg/actuation 2 puff inhalation Q4H PRN 06/13/23 Unknown History aerosol inhaler shortness of breath or wheezing fluticasone propionate 50 1 spray intranasal DAILY PRN nasal 05/28/24 Unknown History mcg/actuation nasal congestion spray,suspension (Flonase Allergy Relief) losartan 25 mg tablet 25 mg PO DAILY blood pressure 11/12/24 02/16/25 05:30 History ondansetron HCl 8 mg tablet 8 mg PO Q8H PRN nausea and vomiting 11/24/24 01/09/25 History docusate sodium 100 mg capsule 100 mg PO BID PRN constipation 12/11/24 Unknown History omeprazole 40 mg capsule,delayed 40 mg PO BID gerd 12/11/24 02/16/25 05:30 History release lidocaine-prilocaine 2.5 %-2.5 % 1 applic topical ONCE PRN port 12/15/24 Unknown Rx topical cream access 30 days #30 grams prochlorperazine maleate 10 mg 10 mg PO Q6H PRN nausea and 12/15/24 01/07/25 Rx tablet vomiting #30 tabs mirtazapine 15 mg tablet 15 mg PO QHS sleep #30 tabs 12/29/24 01/08/25 Rx oxycodone 10 mg tablet 10 mg PO Q4H PRN pain 01/09/25 02/16/25 05:30 History furosemide 20 mg tablet 20 mg PO DAILY PRN leg 01/10/25 Unknown Rx swelling/SOB #30 tabs Allergy/AdvReac Type Severity Reaction Status Date / Time DAVID Inhibitors Allergy Rash Verified 02/16/25 07:36 codeine Allergy Vomiting Verified 02/16/25 07:36 walnut Allergy Food Verified 02/16/25 07:36 Allergy prednisone AdvReac Other Verified 02/16/25 07:36 Cmrmctd-BGD-YfF Reductase AdvReac cramps Verified 02/16/25 07:36 Inhibitor (Ovpuhfh-Fnc-Urg Reductase Inhibitor) Family History Mother Cancer Hx Lung CA. Father Cancer Hx Lung CA. Surgical History (Updated 02/11/25 @ 15:14 by Pricila Pleitez) History of vascular access device Hx of right cataract extraction Hx of left cataract extraction Hx of breast reconstruction Hx of foot surgery Hx of surgical amputation of finger Hx of elbow surgery History of carpal tunnel surgery Hx of vein stripping History of cholecystectomy History of back surgery History of eye surgery History of breast biopsy History of tubal ligation History of History of appendectomy History of tonsillectomy Social History household members: spouse Smoking Status: Former smoker quit date: 08/17/16 Tobacco: How many years used: 45 alcohol intake: never Review of Systems (Anesthesia) ROS Narrative System reviewed and no additional complaints, except as documented. Physical Exam Const alert, oriented x3 and average body habitus Resp normal respiratory effort, normal air movement and clear to auscultation bilaterally Cardio regular rate, regular rhythm, no murmurs and diaphoretic
[2025-02-16 08:11] VITALS: BP 126/68; PULSE 80; RESP 18; TEMP 37; O2SAT 96
--- NOTE | 2025-02-16 08:35 | RAD_ITS ---
EXAM: XR Lumbosacral Spine, 2 or 3 Views CLINICAL INDICATION: LUMBAR TRANSFORAMINAL EPIDURAL AT TECHNIQUE: Frontal views of the lumbar spine and sacrum. COMPARISON: No relevant prior studies available. FINDINGS: VERTEBRAE: Unremarkable. No acute fracture. Normal alignment. SACRUM/COCCYX: Unremarkable as visualized. No acute fracture. DISC SPACES: No acute findings. No significant narrowing. SOFT TISSUES: Unremarkable. OTHER FINDINGS: Fluoroscopic guidance was used intraoperatively. Total fluoroscopy time 13.8 seconds. Total radiation dose 2.35 mGy. Total images 2. RAD/Lumbar Spine 2 or 3 Views IMPRESSION: Fluoroscopic guidance was used intraoperatively. Please refer to the operative note for further details. Reading Location: [facility]
[2025-02-16] MEDS: Lidocaine 1% (5 ml sdv) 5 ML Vial (08:43)
[2025-02-16] MEDS: Bupivacaine 0.25% 30 ML Vial (08:44)
[2025-02-16 08:50] VITALS: BP 100/55; BP 126/68; PULSE 72; RESP 16; TEMP 37.3; O2SAT 94
--- NOTE | 2025-02-16 08:51 | OP.PCM_ITS ---
Operative Report (Standard) Operative Information Date of Procedure: 02/16/25 Pre-Operative Diagnosis: Lumbosacral radiculopathy, lumbosacral degenerative disc disease, lumbosacral spinal stenosis Post-Operative Diagnosis: Lumbosacral radiculopathy, lumbosacral degenerative disc disease, lumbosacral spinal stenosis Surgery/Procedure Performed: Left-sided lumbar transforaminal epidural steroid injection L4-5, L5-S1 under fluoroscopic guidance kindergarten assistant: No Type of Anesthesia: Local MAC RN Documented Start/Stop Times: Operation Date: 02/16/25 08:45 Case Time Into Pre-Op 02/16/25 07:11 Anesthesia Start 02/16/25 08:38 Into Room 02/16/25 08:38 Procedure Start 02/16/25 08:43 Procedure End 02/16/25 08:46 Anesthesia End 02/16/25 08:49 Out of Room 02/16/25 08:49 Procedure Start Time: 08:52 Procedure Stop Time: 08:52 Select all DRAINS/GRAFTS/IMPLANTS that apply: None Estimated Blood Loss: 1 Specimen collected: No Description of surgery: DESCRIPTION OF PROCEDURE: History and physical of today was reviewed. Risks and benefits of the procedure were explained. The patient understood and agreed to proceed. Informed consent was obtained. IV inserted per routine protocol. The patient was taken to the operating room and placed in the prone position with a pillow positioned underneath the abdomen. The left side of the lower back was prepped and draped in a sterile fashion using iodine x3. Under fluoroscopy guidance on oblique view, the L4 through S1 vertebral bodies were visualized. The skin and subcutaneous tissue was anesthetized with approximately 5 mL of 1% lidocaine using a 25-gauge regular needle. Under direct visualization with fluoroscopy at approximately 35-degree angle, starting on the left L4, ending on the left L5, using a 22-gauge 5-inch spinal needle, the needle was advanced via the skin. The tip of the needle was maneuvered and directed towards the inferior and medial gutter of the transverse process at the superiormost aspect of the neural foramen. Once the tip of the needle was at the vicinity of the foramen, after negative aspiration for blood or CSF, a total of 1 mL of contrast was injected in divided doses between both levels to confirm correct placement of the needle as well as medial spread. The confirmation was obtained on AP as well as lateral view. After repeated negative aspiration and confirmation on AP as well as lateral view, a total of 6 mL of preservative-free 0.25% Marcaine with 80 mg of Depo-Medrol was injected in divided doses between both levels. The needles were then removed intact. The patient experienced no sign or symptoms of intrathecal or intravascular injection. The patient experienced no paresthesia. The procedure was completed without any apparent difficulty or any complications. The patient appeared to tolerate it well. Assessment and plan: This is a 69-year-old female with lumbosacral radiculopathy, lumbosacral degenerative disc disease, lumbosacral spinal stenosis, status post left-sided lumbar transforaminal epidural steroid injection L4-5, L5-S1 under fluoroscopic guidance, patient will continue her current medications, patient will follow-up in approximately 2 weeks for reevaluation. Surgical Findings: 0 Complications Complications: No Admit VTE Documentation VTE Present on Admission: No VTE Mechan Device Prophylaxis: None VTE Pharm Prophylaxis ordered?: No
--- NOTE | 2025-02-16 08:54 | PCM.POST.ANE ---
Anesthesia: Postop Eval I Current Vital Signs Temperature: 97.2 F Pulse Rate: 70 Blood Pressure: 100/55 Respiratory Rate: 16 Pulse Ox: 96 Oxygen Delivery Method: Room Air Assessment Airway patent: Yes Spontaneous unlabored respirations: Yes Mental status: Awake and Calm nausea: No Vomiting: No Anesthesia Complication: No Fluid Hydration Crystalloid volume administer (ml): 200 Total IV fluid infused: 200 Progress Note Anesthesia document: Postop Eval 1 completed: Yes
[2025-02-16 08:55] VITALS: BP 100/55; PULSE 70; RESP 16; TEMP 36.2; O2SAT 96
[2025-02-16 09:00] VITALS: BP 105/58; BP 126/68; PULSE 70; RESP 16; TEMP 36.8; O2SAT 91; O2SAT 94
--- NOTE | 2025-02-16 09:01 | PCM.POSTANE2 ---
Anesthesia Postop Eval I Sum Postop Eval Completion status Anesthesia document: Postop Eval 1 completed: Yes Anesthesia Postop Eval I Summary Anesthesia Postop Eval I Summary: Anesthesia Postop Eval I: Assessment Summary Airway patent Yes 02/16/25 08:55 [email or web address] Spontaneous unlabored Yes 02/16/25 08:55 [email or web address] respirations Mental status Awake,Calm 02/16/25 08:55 [email or web address] nausea No 02/16/25 08:55 [email or web address] Vomiting No 02/16/25 08:55 [email or web address] Anesthesia Postop Eval I: Fluid Summary Crystalloid volume administer 200 02/16/25 08:55 [email or web address] (ml) Colloids volume administered ( ml) Blood Product volume administered (ml) Total IV fluid infused 200 02/16/25 08:55 [email or web address] Anesthesia Postop Eval I: Summary Notes Anesthesia Complication No 02/16/25 08:55 [email or web address] Anesthesia Complication Comment: Post-operative progress note Anesthesia: Postop Eval II Evaluation Mental status: Awake Pain Level: 0 nausea: No Vomiting: No Complications Anesthesia Complication: No
[2025-02-16 09:24] VITALS: BP 126/68
== END 2025-02-16 09:34 | disposition home or self-care (01) ==
LOC: SDC 07:01 → AC 07:01
PROVIDERS: PCP Family Medicine; Referring Provider Anesthesiology Pain Medicine; Visit Provider Anesthesiology Pain Medicine
PROC: 3E0S3BZ Introduction of Anesthetic Agent into Epidural Space, Percutaneous Approach (ICD-10-PCS; CPT 64484; principal; 2025-02-16 08:40)
DX: M51.17 Intervertebral disc disorders with radiculopathy, lumbosacral region (principal); M48.07 Spinal stenosis, lumbosacral region; I10 Essential (primary) hypertension; Z79.899 Other long term (current) drug therapy; Z87.891 Personal history of nicotine dependence
CPT/HCPCS: 64484; 64483; 72100; A4216

== ENCOUNTER → 2025-02-17 | Outpatient (CLI) | payer MEDICARE, SELFPAY ==
--- OUTSIDE RECORDS SUMMARY | 2025-02-17 07:02 | XMS RPT_ITS | CCD ---
Author Organization [facility] Care Team Providers Care Caddymaster Name Role Phone MARCAEE, TONI TEREAZZAM Attending Unav ailable TAVALLAEE, TONI MONAZZAM Attending Unav ailable TAVALLAEE, TONI MONAZZAM Attending Unav ailable TAVALLAEE, TONI MONANGELINEZAM Attending Unav ailable TAVALLLAURAE, TONI MARGARITO Attending Unav ailable Dr. Fabricio Lemos Primary Care Provider Dr. Fabricio Lemos Referring Provider Patricia EPIDEMIOLOGY INVESTIGATOR, EPIDEMIOLOGY INVESTIGATOR-Ansley Hackett Attending Provider Girish Lemos MD Primary Care Provider Girish Lemos MD Primary Care Provider Girish Lemos MD Primary Care Provider Dr. Fabricio Lemos Primary Care Provider [phone] Dr. Fabricio Lemos Referring Provider Patricia EPIDEMIOLOGY INVESTIGATOR, EPIDEMIOLOGY INVESTIGATOR-Ansley Hackett Attending Provider Dr. Fabricio Lemos Primary Care Provider Dr. Fabricio Lemos Referring Provider Patricia DICKEY EPIDEMIOLOGY INVESTIGATOR-Ansley Hackett Attending Provider Dr. Fabricio Lemos Primary Care Provider Dr. Fabricio Lemos Referring Provider [phone] Dr. Tobias Gonsalves Attending Provider [phone] Tobias Gonsalves Referring Provider [phone] Tobias Gonsalves Other Provider Dr. Sarmad Noe Attending Provider Girish Lemos MD Primary Care Provider XUAN GARCIA MD Attending Unavailabl e DUMANDAN, XUAN ERNANDEZ Primary Care Unavailabl e GIRISH LEMOS Consulting Unavailab le JERRIANDAJoo, XUAN ERNANDEZ Admitting Unavailabl e PROVIDER, UNKNOWN Consulting Unavailable JERRIANDAJoo, XUAN ERNANDEZ Attending Unavailabl e DUMANDAN, XUAN ERNANDEZ Primary Care Unavailabl e GIRISH LEMOS Consulting Unavailab le JERRIANDAJoo, XUAN ERNANDEZ Admitting Unavailabl e PROVIDER, UNKNOWN Consulting Unavailable JERRIANDAJoo, XUAN ERNANDEZ Primary Care Unavailabl e DUMANDAN, XUAN ERNANDEZ Admitting Unavailabl e OLIVEIRA, AURE A Consulting Unavailable JERRIANDAJoo, XUAN ERNANDEZ Attending Unavailabl e PROVIDER, UNKNOWN Consulting Unavailable PROVIDER, UNKNOWN Consulting Unavailable PROVIDER, UNKNOWN Consulting Unavailable Podlogar TURNAROUND PLANNER.DIA, Jeanette Unavailable Roxann Gomez Unavailable Silas Robbins MD Unavailable Dr. Fabricio Lemos MD Primary Care Provider Dr. Fabricio Lemos MD Referring Provider Patricia EPIDEMIOLOGY INVESTIGATOR-CRoxann Attending Provider Patricia EPIDEMIOLOGY INVESTIGATOR-CRoxann Referring Provider Austin Mack MD Emergency Provider [phone] Mae Horton DO Admit Provider Dr. Mae Horton DO Attending Provider Dr. Mae Horton DO Other Provider Dr. Alex Mercado MD Emergency Provider Dr. Alex Mercado MD Attending Provider [phone] Dr. Sherice Fernandez MD Attending Provider Audie EPIDEMIOLOGY INVESTIGATOR-C, Sharda Attending Provider Dr. Sherice Fernandez MD Referring Provider Macario ERNANDEZ Dr. Jalloh Attending Provider Macario ERNANDEZ, Dr. Jalloh Referring Provider Macario ERNANDEZ, Dr. Jalloh Other Provider Knoble 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, Oleg Unavailable Knoble 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, Oleg Unavailable Rachael Mattson PA-C Attending Provider Raulito ERNANDEZ, Dr. De La Rosa Admit Provider Raulito ERNANDEZ, Dr. De La Rosa Referring Provider Raulito ERNANDEZ, Dr. De La Rosa Other Provider Michi ERNANDEZ, Dr. Keene Attending Provider Vickey ERNANDEZ, Dr. Hancock Attending Provider Michi ERNANDEZ, Dr. Keene Other Provider GIRISH LEMOS Primary Care Unavailab le KNOBLE, OLEG Referring Unavailable GIRISH LEMOS Primary Care Unavailab le KNOBLE, OLEG Referring Unavailable PODLOGAR, JEANETTE Attending Unavailable GIRISH LEMOS Primary Care Unavailab le GIRISH LEMOS Attending Unavailab le GIRISH LEMOS Primary Care Unavailab le GIRISH LEMOS Primary Care Unavailab le KNOBLE, OLEG Referring Unavailable GIRISH LEMOS Primary Care Unavailab le GIRISH LEMOS Referring Unavailab le GIRISH LEMOS Primary Care Unavailab le GIRISH LEMOS Referring Unavailab le ABRAMSILAS CHIN Attending Unavailable GIRISH LEMOS Primary Care Unavailab le GIRISH LEMOS Attending Unavailab le GIRISH LEMOS Attending Unavailab le GIRISH LEMOS Primary Care Unavailab victor hugo ABRAMSILAS CHIN Referring Unavailable GIRISH LEMOS Attending Unavailab le GIRISH LEMOS Primary Care Unavailab le PODLOGARJEANETTE Attending Unavailable GIRISH LEMOS Primary Care Unavailab le PODLOGARJEANETTE Referring Unavailable IGRISH LEMOS Primary Care Unavailab le BURSLEY, CHRISTOPHER B Referring Unavailab le BURSLEY, CHRISTOPHER B Primary Care Unavailab le MOLLYLEY, CHRISTOPHER B Primary Care Unavailab le OLEG FIELDS Attending Unavailable BURSLEY, CHRISTOPHER B Primary Care Unavailab le OLEG FIELDS Referring Unavailable BURSLEY, CHRISTOPHER B Primary Care Unavailab le BURSLEY, CHRISTJESSER B Attending Unavailab victor hugo Polo MD, Dr. Conway Attending Provider Aminta ERNANDEZ, Dr. Regalado Primary Care Provider Aminta ERNANDEZ, Dr. Regalado Referring Provider [phone] Patricia EPIDEMIOLOGY INVESTIGATOR-C, Roxann Attending Provider Patricia EPIDEMIOLOGY INVESTIGATOR-C, Roxann Referring Provider Frederick ERNANDEZ, Austin Emergency Provider Clifford EM, Dr. Wall Admit Provider Dr. Mae Horton DO Attending Provider Dr. Mea Horton DO Other Provider Rogelio ERNANDEZ, Dr. Johnson Attending Provider Dr. Alex Mercado MD Emergency Provider Dr. Sherice Fernandez MD Attending Provider Audie EPIDEMIOLOGY INVESTIGATOR-C, Sharda Attending Provider Dr. Sherice Fernandez MD Referring Provider Dr. Yeimi Sorto MD Attending Provider Dr. Yeimi Sorto MD Referring Provider Dr. Yeimi Sorto MD Other Provider Twila BENNETT-Ansley, Rachael Attending Provider Raulito ERNANDEZ, Dr. De La Rosa Admit Provider Raulito ERNANDEZ, Dr. De La Rosa Referring Provider Dr. Estrella Cabezas MD Other Provider Michi ERNANDEZ, Dr. Keene Attending Provider Dr. Man Polo MD Attending Provider Vickey ERNANDEZ, Dr. Hancock Attending Provider Michi ERNANDEZ, Dr. Keene Other Provider [phone] Shun ERNANDEZ, Dr. Bernardo Attending Provider Shun ERNANDEZ, Dr. Bernardo Referring Provider Bursley, Fabricio Primary Care Unavailable Az Hoffmann Attending Unavailable Az Hoffmann Referring Unavailable Clifford Mae Admitting Unavailable Mae Horton Attending Unavailable Bursley, Fabricio Primary Care Unavailable Gomez EPIDEMIOLOGY INVESTIGATOR, Roxann Referring Unavailable Gomez EPIDEMIOLOGY INVESTIGATOR, Roxann Attending Unavailable Bursley, Fabricio Primary Care Unavailable Gomez EPIDEMIOLOGY INVESTIGATOR, Roxann Attending Unavailable Bursley, Fabricio Primary Care Unavailable Bursley, Fabricio Referring Unavailable Bursley, Fabricio Primary Care Unavailable Santi Hurd Attending Unavailable Man Polo Attending Unavailable Cabezas, Estrella Referring Unavailable Bursley, Fabricio Primary Care Unavailable Gomez EPIDEMIOLOGY INVESTIGATOR, Roxann Referring Unavailable Gomez EPIDEMIOLOGY INVESTIGATOR, Roxann Attending Unavailable Bursley, Fabricio Primary Care Unavailable Alex Mercado Attending Unavailable Bursley, Fabricio Primary Care Unavailable Gomez EPIDEMIOLOGY INVESTIGATOR, Roxann Referring Unavailable Gomez EPIDEMIOLOGY INVESTIGATOR, Roxann Attending Unavailable Bursley, Fabricio Primary Care Unavailable Gomez EPIDEMIOLOGY INVESTIGATOR, Roxann Attending Unavailable Gomez EPIDEMIOLOGY INVESTIGATOR, Roxann Referring Unavailable Bursley, Fabricio Primary Care Unavailable Mae Horton Attending Unavailable Clifford, Mae Consulting Unavailable Clifford, Mae Admitting Unavailable Bursley, Fabricio Primary Care Unavailable Jassi Borden Attending Unavailable Cabezas, Estrella Referring Unavailable Cabezas, Estrella Consulting Unavailable Cabezas, Estrella Admitting Unavailable Bursley, Fabricio Primary Care Unavailable Jassi Borden Consulting Unavailable Gomez EPIDEMIOLOGY INVESTIGATOR, Roxann Attending Unavailable Bursley, Fabricio Referring Unavailable Bursley, Fabricio Primary Care Unavailable Cabezas Estrella Attending Unavailable Robotham, Yeimi Referring Unavailable Robotham, Yeimi Attending Unavailable Bursley, Fabricio Primary Care Unavailable Bursley, Fabricio Primary Care Unavailable SarahkarusSherice Attending Unavailable Isckarus, Mansour Referring Unavailable Gomez EPIDEMIOLOGY INVESTIGATOR, Roxann Attending Unavailable Bursley, Fabricio Referring Unavailable Bursley, Fabricio Primary Care Unavailable Gomez EPIDEMIOLOGY INVESTIGATOR, Roxann Referring Unavailable Isckarus, Mansour Attending Unavailable Bursley, Fabricio Primary Care Unavailable Bursley, Fabricio Primary Care Unavailable Isckarus, Mansour Attending Unavailable Isckarus, Mansour Referring Unavailable Bursley, Fabricio Primary Care Unavailable Jassi Borden Attending Unavailable Estrella Cabezas Consulting Unavailable Estrella Cabezas Admitting Unavailable Estrella Cabezas Referring Unavailable Bursley, Fabricio Primary Care Unavailable Az Hoffmann Attending Unavailable Az Hoffmann Referring Unavailable Matthew Garza Attending Unavailabl e Bursley, Fabricio Primary Care Unavailable Isckarus, Mansour Attending Unavailable Isckarus, Mansour Referring Unavailable Bursley, Farbicio Primary Care Unavailable Bursley, Fabricio Primary Care Unavailable Audie EPIDEMIOLOGY INVESTIGATOR, Sharda Attending Unavailable Bursley, Fabricio Referring Unavailable Bursley, Fabricio Primary Care Unavailable Bursley, Fabricio Referring Unavailable Isckarus, Mansour Attending Unavailable Bursley, Fabricio Primary Care Unavailable Bursley, Fabricio Referring Unavailable Audie EPIDEMIOLOGY INVESTIGATOR, Sharda Attending Unavailable Bursley, Fabricio Primary Care Unavailable Bursley, Fabricio Referring Unavailable Rachael Charles Attending Unavailable Bursley, Fabricio Primary Care Unavailable Bursley, Fabricio Referring Unavailable Audie EPIDEMIOLOGY INVESTIGATOR, Sharda Attending Unavailable Bursley, Fabricio Referring Unavailable Isckarus, Mansour Attending Unavailable Bursley, Fabricio Primary Care Unavailable Audie EPIDEMIOLOGY INVESTIGATOR, Sharda Attending Unavailable Bursley, Fabricio Primary Care Unavailable Bursley, Fabricio Referring Unavailable Robotham, Yeimi Attending Unavailable Bursley, Fabricio Primary Care Unavailable Bursley, Fabricio Referring Unavailable Bursley, Fabricio Primary Care Unavailable Robotham, Yeimi Consulting Unavailable Robotham, Yeimi Referring Unavailable Robotham, Yeimi Attending Unavailable Allergies Allergy Classification Reported Allergen(s) Allergy Type Date of Onset Reaction(s) Facility (20 sources) Angiotensin Converting Enzyme (Meagan) Inhibitors; Translations: [MEAGAN INHIBITORS] Allergy to substance [address] [facility] Work Phone: (20 sources) Codeine; Translations: [CODEINE] Drug Allergy 8 Vomiting, Other: See Comments [facility] Work Phone: (11 sources) predniSONE Drug Allergy 2 Other [facility] Comment on above: patient does not rec all the reaction, just states she can't take prednisone. (20 sources) walnut allergenic extract; Translations: [WALNUT] Drug Allergy [address] [facility] (12 sources) Ukbntkx-Jeh-Jvf Reductase Inhibitor; Translations: [Gihcuiz-Yom-Wo a Reductase Inhibitor] Propensity to adverse reactions 2 cramps [facility] (20 sources) ezetimibe; Translations: [EZETIMIBE] Drug Allergy [address] [facility] Work Phone: (2 sources) HMG-CoA reductase inhibitor; Translations: [MEHXNQO-OJX-FK A REDUCTASE INHIBITORS] Drug Intolerance [address] [facility] Work Phone: (20 sources) Mirtazapine; Translations: [MIRTAZAPINE] Drug Allergy 1 Other: See Comments [facility] Work Phone: (20 sources) HMG-CoA reductase inhibitor Drug Intolerance [address] [facility] Work Phone: (1 source) Codeine Drug Allergy [facility] Repository (1 source) Codeine Drug Allergy 5 [facility] Repository (1 source) predniSONE Drug Allergy 5 [facility] Repository (1 source) walnut Drug allergy (disorder) 5 [facility] Repository Medications Current Medications Medication Drug Class(es) Dates Sig (Normalized) Sig (Original) [id number] 200 actuat albuterol 0.09 mg/actuat metered dose inhaler (20 sources) beta2-Adrenergic Agonist Start: 06-13-2023 Start: 06-13-2023 Albuterol Sulf ate 90 mcg/actuation HFA aerosol inhaler Active 2 NMA INHALATION Q4H as needed for shortness of breath or wheezing June 13, 2023 12:00am Start: 06-13-2023 take 1 puff(s) by in halation every four hours Albuterol Sulfate Active 2 PUFF INHALATION Q4H June 13, 2023 12:00am Start: 10-06-2020 take 2.5 mg by inhal ation every four hours as needed albuterol (PROVENTIL) 2.5 mg /3 mL (0.083 %) nebulizer solution Use 3 mL via nebulizer every 4 hours as needed for Wheezing/Shortness of Breath. Use over 5-15minutes. 10/06/2020 Active Start: 09-15-2020 End: 05-09-2022 Start: 09-15-2020 End: 05-09-2022 take 2.5 mg by inhalation every four hours as needed for wheezing Albuterol Sulfate 2.5 mg /3 mL (0.083 %) solution for nebulization Discontinued 2.5 mg INHALATION Q4H as needed for Sob &/Or Wheezing 180 September 15, 2020 1:00am May 09, 2022 10:15am Comment on above: Use 3 mL via nebuliz er every 4 hours as needed for Wheezing/Shortness of Breath. Use over 5-15minutes. benzonatate 100 mg oral capsule (4 sources) Non-narcotic Antitussive Start: 01-27-20 End: 02-06-20 take 1 capsule by mouth three times daily as needed benzonatate (TESSALON PERLE) 100 mg capsule Indications: Viral URI with cough Take 1 capsule by mouth three times a day as needed for up to 10 days. 30 capsule 01/26/2025 02/05/2025 Active Disability Placard (10 sources) Start: 09-15-20 Disability Placard Active 0 .Route .MEDSUPPLY September 15, 2020 2:55pm Expires 09/09/2025 Start: 09-15-2020 Disability Yvette card Active 0 .Route .MEDSUPPLY September 15, 2020 1:00am September 09, 2025 1:00am Expires 09/09/2025 Start: 09-15-2020 Disability Yvette card Active 0 .Route .MEDSUPPLY September 15, 2020 1:00am Expires 09/09/2025 Start: 09-15-2020 Disability Yvette card Active 0 .Route .MEDSUPPLY September 15, 2020 12:00am Expires 09/09/2025 docusate sodium 100 mg oral capsule (11 sources) Start: 11-14-2024 End: 12-11-2024 enteric contrast (will be provided with radiology test) (4 sources) Start: 10-16-2024 End: 10-17-2024 enteric contrast (will be provided with radiology test) Indications: Generalized abdominal pain For CT ABD/PEL W IVCON Routine order Administer, As Directed One Time Only, via Oral, Rectal, both Oral and Rectal, Enteric Tube, Stoma or Indwelling Catheter, Enteric Contrast as designated per enteric contrast guidelines 1 Each 10/16/2024 10/17/2024 Active fluticasone propionate 0.05 mg/actuat metered dose nasal spray (20 sources) Corticosteroid Start: 05-28-2024 Start: 03-23-2022 End: 07-15-2024 take 2 spray(s) by mouth once daily fluticasone (FLONASE) 50 mcg/actuation nasal spray Indications: Non-seasonal allergic rhinitis, unspecified trigger Use 2 Sprays in each nostril once daily. Rinse mouth after use. 1 Each 5 07/15/2024 Active Comment on above: Use 2 Sprays in each nostril once daily. Rinse mouth after use. furosemide 20 mg oral tablet (14 sources) Loop Diuretic Start: 01-10-2025 Start: 08-17-2020 End: 05-17-2021 Start: 08-17-2020 End: 05-17-2021 take 1 tablet by mouth twice daily Furosemide 20 MG tablet Discontinued 20 mg PO TWICE A DAY August 17, 2020 1:00am May 17, 2021 11:18am gabapentin 400 mg oral capsu le (20 sources) Anti-epileptic Agent Start: 07-16-2020 take 1 capsule by mouth twice da ottoniel gabapentin (NEURONTIN) 400 mg capsule Take 400 mg by mouth two times a day. Active Comment on above: Take 400 mg by mouth three times daily. Take 400 mg by mouth two times a day. iv contrast (will be provided with radiology test) (5 sources) Start: 10-17-2024 End: 10-18-2024 iv contrast (will be provided with radiology test) Indications: Liver masses CT Chest W -Inject, intravenously, once for 1 dose.No IV access, insert saline lock prior to the beginning of sedation, infusion, injection of imaging exam. Discontinue saline lock post exam. If Pt. has a central line or IVAD, may access for administration according to line specific nursing protocol. Once exam is complete flush line and de-access according to line specific nursing protocol in the CT contrast administration guidelines link. 1 Each 10/17/2024 10/18/2024 Active Start: 10-16-2024 End: 10-17-2024 iv contrast (will be provide d with radiology test) Indications: Generalized abdominal pain CT ABD/PEL -Inject, intravenously, once for 1 dose.No IV access, insert saline lock prior to the beginning of sedation, infusion, injection of imaging exam. Discontinue saline lock post exam. If Pt. has a central line or IVAD, may access for administration according to line specific nursing protocol. Once exam is complete flush line and de-access according to line specific nursing protocol in the CT contrast administration guidelines link. 1 Each 10/16/2024 10/17/2024 Active levothyroxine sodium 0.025 m g oral tablet (20 sources) l-Thyroxine Start: 11-03-2017 End: 02-11-2025 Comment on above: Take 1 tablet by trina th once daily. lidocaine 25 mg/ml / priloca ine 25 mg/ml topical cream (3 sources) Antiarrhythmic, Amide Local Anesthetic Start: 12-15-2024 Start: 12-15-2024 Lidocaine-Pril ocaine 2.5-2.5 % cream Active 1 NMA TOPICAL ONCE as needed for port access December 15, 2024 12:00am losartan potassium 50 mg oral tablet (20 sources) Angiotensin 2 Receptor Juany Start: 01-13-2025 End: 07-12-2025 take 0.5 tablet by mouth once daily losartan (COZAAR) 50 mg tablet Indications: Essential hypertension Take 0.5 tablets by mouth once daily. 90 tablet 1 01/13/2025 07/12/2025 Active Start: 11-12-2024 Start: 08-19-2024 End: 02-15-2025 take 1 tablet by mouth once daily Losartan 50 mg tablet Discontinued 50 mg PO daily November 03, 2024 1:00am November 12, 2024 2:12pm Start: 08-23-2021 End: 11-03-2024 Start: 08-17-2020 End: 05-28-2024 Start: 07-16-2020 End: 05-28-2024 Losartan 100 MG tablet Disco ntinued 25 mg PO DAILY 0 August 17, 2020 1:10pm May 28, 2024 11:54am Start after 3 days. Hold for SBP less than 120 mmHg Start: 07-16-2020 End: 08-17-2020 take 1 tablet by mouth once daily Losartan 100 MG tablet Discontinued 100 mg PO DAILY July 16, 2020 12:00am August 17, 2020 1:10pm Comment on above: Take 1 tablet by trina th once daily. minoxidil 20 mg/ml topical solution (20 sources) Arteriolar Vasodilator Start: 11-17-2020 Minoxidil 2 % external solution Indications: Thinning hair Apply 1 mL to affected area twice daily. 120 mL 1 11/17/2020 Active Comment on above: Apply 1 mL to affect ed area twice daily. mirtazapine 15 mg oral tablet (3 sources) Start: 12-29-2024 Start: 12-29-2024 take 1 tablet by trina th at bedtime Mirtazapine 15 mg tablet Active 15 mg PO AT BEDTIME December 29, 2024 12:00am mv,jaci,iron,mn/folic acid/ch ol (WMCM-CILZ-QGIOI, PABA, ORAL) (20 sources) take 1 tablet by mouth once daily mv,jaci,iron,mn/folic acid/chol (VDXW-GEGE-LDLRT, PABA, ORAL) Take 1 tablet by mouth once daily. Active take 1 tablet by mouth once nica y mv,jaci,iron,mn/folic acid/chol (IEYK-JVFQ-RQMEZ, PABA, ORAL) Take 1 tablet by mouth once daily. 0 Active Comment on above: Take 1 tablet by trina th once daily. oxyCODONE hydrochloride 10 m g oral tablet (20 sources) Opioid Agonist Start: 01-09-2025 Start: 11-15-2024 End: 12-22-2024 Start: 11-15-2024 End: 12-02-2024 Start: 11-15-2024 End: 12-02-2024 take 1 tablet by mouth every four hours as needed for pain Oxycodone 5 mg tablet Discontinued 5 mg PO Q4H as needed for pain 120 November 15, 2024 December 02, 2024 1:20pm take 1 tablet by trina th every six hours as needed oxyCODONE IR (ROXICODONE) 10 mg tab Take 10 mg by mouth four times a day as needed for pain. 0 Active Pnv No.945-Uk-Yu8-Dha-Epa-Fi sh ( Gummies) 400 mcg-35 mg- 25 mg-5 mg tablet,chewable (10 sources) Start: 01-05-2022 take 2 tablets by mouth once daily Pnv No.682-Mx-Va3-Ijk-Dla-Pmem ( Gummies) 400 mcg-35 mg- 25 mg-5 mg tablet,chewable Active 2 TABLET PO DAILY January 05, 2022 1:15pm Start: 01-05-2022 End: 09-04-2022 Pnv No.547-Wy-Qo3-Dha-Epa-Fi sh ( Gummies) 400 mcg-35 mg- 25 mg-5 mg tablet,chewable Discontinued 2 {tbl} PO DAILY January 05, 2022 12:00am September 04, 2022 1:49pm Start: 01-05-2022 End: 09-04-2022 take 2 tablets by mouth once daily Pnv No.632-Cw-Kc1-Dcw-Xxb-Lgqg ( Gummies) 400 mcg-35 mg- 25 mg-5 mg tablet,chewable Discontinued 2 TABLET PO DAILY January 05, 2022 12:00am September 04, 2022 1:49pm Start: 01-05-2022 End: 09-04-2022 take 2 tablets by mouth once daily Pnv No.470-Gn-Oe7-Qzz-Nxm-Dnmq ( Gummies) 400 mcg-35 mg- 25 mg-5 mg tablet,chewable Discontinued 2 TABLET PO DAILY January 04, 2022 11:00pm September 04, 2022 12:49pm potassium chloride 10 meq extended release oral tablet (20 sources) Start: 09-06-2021 End: 12-15-2024 potassium chloride (K-TAB) 10 mEq tablet Take two tablets daily 180 tablet 1 12/15/2024 Active Comment on above: Take two tablets ariella ly potassium citrate 10 meq extended release oral tablet (20 sources) Start: 07-16-2020 End: 01-26-2022 Start: 07-16-2020 End: 01-26-2022 take 4 tablets by mouth once daily Potassium Citrate 10 MEQ tablet extended release Discontinued 40 meq PO DAILY July 16, 2020 12:00am January 26, 2022 1:19pm Start: 07-16-2020 End: 01-26-2022 take 40 mEq by mouth once daily Potassium Citrate Disc ontinued 40 MEQ PO DAILY July 16, 2020 12:00am January 26, 2022 1:19pm prochlorperazine 10 mg oral tablet (3 sources) Phenothiazine Start: 12-15-2024 Rlqnclb-Htsl-Dzgui-Oreg- Capryl (4 sources) Start: 01-05-2022 take 2 capsules by mouth once daily Tumeric-Ging- Yhvsj-Rkjc-Rw pryl Active 2 CAP PO DAILY January 05, 2022 1:15pm Start: 01-05-2022 End: 05-09-2022 take 2 capsules by mouth once daily Ufytixo-Imbf-Addxr-Oreg-Capryl Discontin ued 2 CAP PO DAILY January 05, 2022 12:00am May 09, 2022 10:07am Start: 01-05-2022 End: 05-09-2022 take 2 capsules by mouth once daily Yvbndfw-Hnih-Lfkos-Oreg-Capryl Discontin ued 2 CAP PO DAILY January 04, 2022 11:00pm May 09, 2022 9:07am Vitamin B Complex (B Complex-Vitamin B12) tablet (10 sources) Start: 01-05-2022 take 1 tablet by mouth once daily Vitamin B Complex (B Complex-Vitamin B12) tablet Active 1 TABLET PO DAILY January 05, 2022 1:13pm Start: 01-05-2022 End: 09-04-2022 Vitamin B Complex (B Complex -Vitamin B12) tablet Discontinued 1 {tbl} PO DAILY January 05, 2022 12:00am September 04, 2022 1:48pm Start: 01-05-2022 End: 09-04-2022 take 1 tablet by mouth once daily Vitamin B Complex (B Complex-Vitamin B12) tablet Discontinued 1 TABLET PO DAILY January 05, 2022 12:00am September 04, 2022 1:48pm Start: 01-05-2022 End: 09-04-2022 take 1 tablet by mouth once daily Vitamin B Complex (B Complex-Vitamin B12) tablet Discontinued 1 TABLET PO DAILY January 04, 2022 11:00pm September 04, 2022 12:48pm Completed/Discontinued Medications Medication Drug Class(es) Dates Sig (Normalized) Sig (Original) acetaminophen 325 mg / HYDROcodone bitartrate 5 mg oral tablet (20 sources) Opioid Agonist Start: 05-28-2024 End: 11-24-2024 Start: 05-28-2024 End: 11-24-2024 Hydrocodone-Acetaminophen 5- 325 mg tablet Discontinued 1 - 1.5 {tbl} PO THREE TIMES A DAY May 28, 2024 12:00am November 24, 2024 3:29pm Start: 11-03-2017 End: 08-17-2020 Start: 11-03-2017 End: 08-17-2020 Hydrocodone-Acetaminophen 1 EACH tablet Discontinued 1 {tbl} PO THREE TIMES A DAY as needed for Pain Score 1-10 November 03, 2017 1:00am August 17, 2020 1:05pm Start: 11-03-2017 End: 08-17-2020 take 1 tablet by mouth three times daily Hydrocodone-Acetaminophen Discontinued 1 TABLET PO THREE TIMES A DAY November 03, 2017 1:00am August 17, 2020 1:05pm End: 08-22-2022 take 1 tablet by mouth every eight hours as needed HYDROcodone-acetaminophen (NORCO) 5-325 mg per tablet Take 1 tablet by mouth every 8 hours as needed for pain. Active Comment on above: Take 1 tablet by trina th every 8 hours as needed. Take 1 tablet by trina th every 8 hours as needed for pain. acetaminophen 325 mg / oxyCO DONE hydrochloride 5 mg oral tablet (11 sources) Opioid Agonist Start: 09-15-2020 End: 05-28-2024 Start: 09-15-2020 End: 05-28-2024 Oxycodone-Acetaminophen 5-32 5 mg tablet Discontinued 1 {tbl} PO Q8H as needed for Pain September 15, 2020 1:00am May 28, 2024 11:57am Start: 09-15-2020 take 1 tablet by trina th every eight hours Oxycodone-Acetaminophen Active 1 TABLET PO Q8H September 15, 2020 1:00am albuterol 0.833 mg/ml / ipratropium bromide 0.167 mg/ml inhalation solution (10 sources) Anticholinergic, beta2-Adrenergic Agonist Start: 05-09-2022 End: 11-12-2024 Start: 05-09-2022 End: 11-12-2024 take 1 mL by inhalation every four hours as needed for wheezing Ipratropium-Albuterol 0.5 mg-3 mg(2.5 mg base)/3 mL solution for nebulization Discontinued 3 mL INHALATION Q4H as needed for shortness of breath or wheezing 180 May 09, 2022 12:00am November 12, 2024 2:13pm Start: 05-09-2022 take 1 mL by inhalat ion every four hours Ipratropium-Albuterol Active 3 ML INHALATION Q4H 180 May 09, 2022 12:00am allopurinol 300 mg oral tablet (5 sources) Xanthine Oxidase Inhibitor Start: 11-24-2024 End: 12-11-2024 amoxicillin 875 mg / clavulanate 125 mg oral tablet (11 sources) Penicillin-class Antibacterial Start: 11-17-2021 End: 05-09-2022 apixaban 5 mg oral tablet (20 sources) Factor Xa Inhibitor Start: 08-17-2020 End: 05-17-2021 azithromycin 250 mg oral tablet (6 sources) Macrolide Antimicrobial Start: 09-02-2024 End: 11-03-2024 bempedoic acid 180 mg oral tablet (20 sources) Start: 05-15-2023 End: 11-03-2024 Comment on above: once daily. Calcium (5 sources) Phosphate Binder, Calcium Start: 05-28-2024 End: 01-09-2025 take 1 capsule by mouth once daily Calcium 600 mg capsule Discontinued 600 mg PO DAILY May 28, 2024 12:00am January 09, 2025 7:05pm Start: 05-28-2024 take 1 capsule by mo [facility] once daily Calcium 600 mg capsule Active 600 mg PO DAILY May 28, 2024 12:00am calcium carbonate 1500 mg or al tablet (20 sources) Start: 01-09-2025 End: 02-11-2025 take 1000 mg by mouth once daily calcium carbonate (CALCIUM 500 ORAL) Take 1,000 mg by mouth once daily. Active Comment on above: Take 1,000 mg by trina once daily. cholecalciferol 0.025 mg ora l capsule (17 sources) Vitamin D Start: 11-12-2024 End: 02-11-2025 Start: 05-17-2021 End: 11-12-2024 clotrimazole 10 mg/ml topical cream (7 sources) Azole Antifungal Start: 08-22-2022 End: 10-08-2022 clotrimazole (LOTRIMIN, CLOTRIM) 1 % cream Indications: Ringworm of body Apply to affected area twice daily. 24 g 0 09/08/2022 10/08/2022 Comment on above: Apply to affected ar ea twice daily. dexamethasone 1 mg oral tablet (8 sources) Corticosteroid Start: 12-29-2024 End: 12-29-2024 Start: 12-11-2024 End: 12-12-2024 doxycycline hyclate 100 mg oral tablet (11 sources) Tetracycline-class Drug Start: 11-17-2021 End: 05-09-2022 Fluad Quad (65yr up)(PF) 60 mcg (15 mcg x 4)/0.5mL IM syringe (flu vac (1 source) Start: 06-28-2021 End: 06-28-2021 Fluad Quad (65yr up)(PF) 60 mcg (15 mcg x 4)/0.5mL IM syringe (flu vac Discontinued 60 MCG IM ONCE 0.5 June 28, 2021 9:36am June 28, 2021 10:15am hydroCHLOROthiazide 25 mg oral tablet (20 sources) Thiazide Diuretic Start: 07-16-2020 End: 05-17-2021 INV VITAMIN D3 5000 UNITS CAPSULE (IRB 19-1548) (20 sources) Start: 05-17-2021 End: 01-08-2024 take 1 capsule by mouth once daily, then take 1 capsule by mouth once daily INV VITAMIN D3 5000 UNITS CAPSULE (IRB 19-1548) Take 1 capsule by mouth once daily. For Investigational Drug Use Only. PI: Krystin Rodrigues, PhD. Take one capsule by mouth daily for 3 months prior to surgery and 3 months after surgery. 90 capsule 3 05/17/2021 01/08/2024 Discontinued (Course of therapy completed) Start: 05-17-2021 take 1 capsule by [facility] [place] once daily, then take 1 capsule by mouth once daily INV VITAMIN D3 5000 UNITS CAPSULE (IRB 19-1548) Take 1 capsule by mouth once daily. For Investigational Drug Use Only. PI: Krystin Rodrigues, PhD. Take one capsule by mouth daily for 3 months prior to surgery and 3 months after surgery. 90 capsule 3 05/17/2021 Active Comment on above: Take 1 capsule by mo [facility] once daily. For Investigational Drug Use Only. PI: Krystin Rodrigues, PhD. Take one capsule by mouth daily for 3 months prior to surgery and 3 months after surgery. levoFLOXacin 750 mg oral tablet (10 sources) Quinolone Antimicrobial Start: 09-04-20 End: 09-11-20 mv,calcium,min/iron/ folic/vitK (ONE-A-DAY WOMEN'S COMPLETE ORAL) (9 sources) End: 08-22-20 take 2 capsules by mouth once daily mv,calcium,min/iron /folic/vitK (ONE-A-DAY WOMEN'S COMPLETE ORAL) Take 2 capsules by mouth once daily. 08/22/2022 Discontinued (Course of therapy completed) End: 08-22-2022 take 2 capsules by mouth once daily mv,calcium,min/iron/folic/vitK (ONE-A-DA Y WOMEN'S COMPLETE ORAL) Take 2 capsules by mouth once daily. 0 08/22/2022 Discontinued (Course of therapy completed) take 2 capsules by mouth once daily mv,calcium,min/iron/folic/vitK (ONE-A-DA Y WOMEN'S COMPLETE ORAL) Take 2 capsules by mouth once daily. 0 Active Comment on above: Take 2 capsules by m [facility] once daily. nystatin [id number] unt/ml oral suspension (5 sources) Polyene Antifungal Start: 11-24-2024 End: 12-11-2024 Start: 11-24-2024 End: 12-11-2024 take 1 mL by mouth four times daily Nystatin 100,000 unit/mL suspension Discontinued 10 mL PO .QID 250 7 November 24, 2024 12:00am December 11, 2024 8:26am swish and swallow nystatin 100 unt/mg / triamcinolone acetonide 0.001 mg/mg topical ointment (5 sources) Polyene Antifungal, Corticosteroid Start: 07-24-2022 End: 08-22-2022 nystatin-triamcinolone (MYCOLOG) ointment Apply sparingly to perineum twice daily for irritation/infection. 30 g 0 07/24/2022 08/22/2022 Discontinued (Course of therapy completed) Comment on above: Apply sparingly to p erineum twice daily for irritation/infection. omeprazole 40 mg delayed release oral capsule (20 sources) Proton Pump Inhibitor Start: 07-16-2020 End: 12-11-2024 Start: 07-02-2019 End: 08-17-2020 take 1 capsule by mouth twice daily Omeprazole 40 MG capsule,delayed release(DR/EC) Active 40 mg PO TWICE A DAY December 11, 2024 12:00am Comment on above: Take 1 capsule by mo [facility] twice daily. ondansetron 8 mg oral tablet (20 sources) Serotonin-3 Receptor Antagonist Start: 11-24-2024 End: 12-29-2024 Start: 10-17-2024 take 1 tablet by trina th every six hours as needed for nausea ondansetron orally disintegrating (ZOFRAN ODT) 4 mg disintegrating tablet Indications: Nausea and vomiting, unspecified vomiting type Take 1 tablet by mouth every 6 hours as needed for nausea/vomiting. 60 tablet 10/17/2024 Active Start: 04-20-2021 End: 08-22-2022 take 1 tablet by mouth every six hours as needed ondansetron orally disintegrating (ZOFRAN ODT) 4 mg disintegrating tablet Take 1 tablet by mouth every 6 hours as needed for nausea/vomiting. 30 tablet 04/20/2021 08/22/2022 Discontinued (Course of therapy completed) Comment on above: Take 1 tablet by trina th every 6 hours as needed for nausea/vomiting. red yeast rice 600 mg oral tablet (20 sources) Start: 01-26-2022 End: 05-28-2024 End: 01-08-2024 take 2 tablets by mouth once daily red yeast rice 600 mg tab Take 2 tablets by mouth once daily. 01/08/2024 Discontinued (Course of therapy completed) Comment on above: Take 2 tablets by mo [facility] once daily. sertraline 50 mg oral tablet (9 sources) Serotonin Reuptake Inhibitor Start: End: 2 take 1 tablet by mouth once daily sertraline (ZOLOFT) 50 mg tablet Indications: Anxiety with depression Take 1 tablet by mouth once daily. 30 tablet 2 04/20/2021 08/22/2022 Discontinued (Other) Comment on above: Take 1 tablet by trina once daily. traZODone hydrochloride 50 mg oral tablet (3 sources) Serotonin Reuptake Inhibitor Start: End: Start: 12-29-2024 End: 12-29-2024 take 1 tablet by mouth at bedtime Trazodone 50 mg tablet Discontinued 50 mg PO AT BEDTIME December 29, 2024 12:00am December 29, 2024 2:50pm Jttsqafd-Zqme-Zxjtl-Oreg-Cap ry (1 source) Start: 01-05-2022 End: 05-09-2022 take 2 capsules by mouth once daily Tqpexccp-Esvd-Kkkyv-Oreg-Capry Discontinued 2 CAP PO DAILY January 05, 2022 12:00am May 09, 2022 10:07am Eczxyrph-Jzim-Hzcvm-Oreg-Cap ry 100 mg-150 mg- 50 mg-150 mg capsule (5 sources) Start: 01-05-2022 End: 05-09-2022 take 1 capsule by mouth once daily Mkiulrbr-Wuzc-Zapnl-Oreg-Capry 100 mg-150 mg- 50 mg-150 mg capsule Discontinued 2 NMA PO DAILY January 05, 2022 12:00am May 09, 2022 10:07am (6 sources) Start: 11-03-2024 End: 11-12-2024 Start: 05-28-2024 End: 01-09-2025 Start: 01-05-2022 End: 09-04-2022 Start: 01-05-2022 End: 09-04-2022 Start: 01-05-2022 End: 05-09-2022 Start: 09-15-2020 Problems Active Problems Problem Classification Problem Date Documented Da te Episodic/Chronic Abdominal pain (20 sources) Generalized abdominal pain; Translations: [Generalized abdominal pain] Onset: 5 10-16-2024 Episodic Acquired foot deformities (1 source) Hammer toe; Translations: [Other hammer toe(s) (acquired), left foot] Chronic Anxiety disorders (20 sources) Mixed anxiety and depressive disorder; Translations: [Other specified anxiety disorders] Onset: 1 04-20-2021 Chronic Asthma (5 sources) Asthma; Translations: [Unspecified asthma, uncomplicated] 11-24-2024 Chronic Comment on above: PRN INHALER Cancer of bronchus; lung (20 sources) Small cell carcinoma of lung; Translations: [Malignant neoplasm of unspecified part of unspecified bronchus or lung] Onset: 5 11-24-2024 Chronic Cardiac dysrhythmias (2 sources) Bradycardia; Translations: [Bradycardia, unspecified] Episodic Chronic kidney disease (20 sources) Chronic kidney disease stage 3; Translations: [Stage 3 chronic kidney disease, unspecified whether stage 3a or 3b CKD (HCC)] Onset: 3 Chronic Chronic kidney disease (1 source) Chronic kidney disease; Translations: [Stage 3 chronic kidney disease, unspecified whether stage 3a or 3b CKD (HCC)] Onset: 3 Chronic obstructive pulmonary disease and bronchiectasis (20 sources) Bronchiectasis; Translations: [Bronchiectasis, uncomplicated] 09-25-2022 Chronic Comment on above: CT of the chest from February 07, 2021 documents evidence of bronchiectasis in the anterior aspects of both right and left upper lobes. Chronic obstructive pulmonary disease and bronchiectasis (11 sources) Bronchitis; Translations: [Bronchitis, not specified as acute or chronic] 11-20-2021 Episodic Conduction disorders (4 sources) First degree atrioventricular block; Translations: [Atrioventricular block, first degree] Onset: 4 Chronic Disorders of lipid metabolism (20 sources) Hyperlipidemia; Translations: [Hyperlipidemia, unspecified] Onset: 8 11-14-2017 Chronic Comment on above: ON MED Esophageal disorders (20 sources) Gastroesophageal reflux disease; Translations: [Gastro-esophageal reflux disease without esophagitis] 11-14-2017 Chronic Comment on above: CONTROLLED WITH MED Essential hypertension (20 sources) Hypertensive disorder; Translations: [Essential (primary) hypertension] Onset: 8 11-14-2017 Chronic Comment on above: CONTROLLED WITH MED Fever of unknown origin (1 source) Fever; Translations: [Fever, unspecified] 11-15-2021 Episodic Fluid and electrolyte disorders (20 sources) Hypokalemia; Translations: [Hypokalemia] 09-21-2022 Episodic Gastrointestinal hemorrhage (1 source) Gastrointestinal hemorrhage; Translations: [Hemorrhage of anus and rectum] 11-12-2024 Episodic Genitourinary symptoms and ill-defined conditions (1 source) Bebeto hematuria; Translations: [Gross hematuria] Episodic Heart valve disorders (5 sources) Heart murmur; Translations: [Cardiac murmur, unspecified] 11-24-2024 Episodic Hemorrhoids (9 sources) Internal hemorrhoids; Translations: [Other hemorrhoids] 12-16-2024 Episodic Immunity disorders (2 sources) Patient immunocompromised; Translations: [Immunodeficiency, unspecified] Onset: 5 01-26-2025 Chronic Inflammatory diseases of female pelvic organs (1 source) Acute vaginitis; Translations: [Acute vaginitis] Episodic Influenza (20 sources) Influenza; Translations: [Influenza due to unidentified influenza virus with other respiratory manifestations] Episodic Maintenance chemotherapy; radiotherapy (6 sources) Patient encounter status; Translations: [Encounter for antineoplastic chemotherapy] 12-16-2024 Chronic Malaise and fatigue (1 source) Weakness; Translations: [Weakness] Onset: 5 Episodic Malignant neoplasm without specification of site (19 sources) Carcinoma of lung; 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] Onset: 5 11-25-2024 Chronic Menopausal disorders (1 source) Postmenopausal bleeding; Translations: [Postmenopausal bleeding] Chronic Mycoses (2 sources) Dermatophytosis; Translations: [Tinea corporis] Episodic Nausea and vomiting (12 sources) Nausea; Translations: [Nausea] Onset: 5 11-15-2021 Episodic Nonspecific chest pain (10 sources) Chest pain; Translations: [Chest pain, unspecified] Onset: 5 01-09-2025 Episodic Osteoarthritis (5 sources) Arthritis; Translations: [Unspecified osteoarthritis, unspecified site] 11-24-2024 Chronic Other aftercare (1 source) Encounter for adjustment and management of vascular access device; Translations: [Encounter for adjustment and management of vascular access device] Onset: 5 Episodic Other circulatory disease (6 sources) Device in situ; Translations: [Presence of other vascular implants and grafts] 12-22-2024 Chronic Other connective tissue disease (1 source) Pain of toe of left foot; Translations: [Pain in left toe(s)] Episodic Other connective tissue disease (1 source) Cramp; Translations: [Cramp and spasm] 01-08-2024 Episodic Other ear and sense organ disorders (5 sources) Hearing loss; Translations: [Unspecified hearing loss, unspecified ear] 11-24-2024 Chronic Other female genital disorders (1 source) Pain in female genitalia on intercourse; Translations: [Unspecified dyspareunia] Chronic Other female genital disorders (1 source) Vulval irritation; Translations: [Other specified noninflammatory disorders of vulva and perineum] Episodic Other gastrointestinal disorders (10 sources) Acute diarrhea; Translations: [Diarrhea, unspecified] 09-21-2022 Episodic Other gastrointestinal disorders (5 sources) Diarrhea; Translations: [Diarrhea, unspecified] 11-15-2021 Episodic Other liver diseases (5 sources) Liver mass; Translations: [Hepatomegaly, not elsewhere classified] 10-17-2024 Episodic Other liver diseases (6 sources) Enzyme level - finding; Translations: [Elevated transaminase measurement] 11-23-2024 Episodic Other liver diseases (13 sources) High lipase level in serum; Translations: [Abnormal levels of other serum enzymes] 11-12-2024 Episodic Other liver diseases (20 sources) Jaundice; Translations: [Unspecified jaundice] 11-24-2024 Episodic Other liver diseases (1 source) Unspecified jaundice; Translations: [Unspecified jaundice] Onset: Episodic Other lower respiratory disease (8 sources) Fibrosis of lung; Translations: [Pulmonary fibrosis, unspecified] 03-13-2023 Chronic Other lower respiratory disease (1 source) Pulmonary fibrosis, unspecified; Translations: [Postinflammatory pulmonary fibrosis] 03-13-2023 Chronic Other lower respiratory disease (11 sources) Respiratory insufficiency; Translations: [Other abnormalities of breathing] 11-12-2021 Episodic Other lower respiratory disease (17 sources) Hypoxia; Translations: [Hypoxemia] 09-15-2020 Episodic Other lower respiratory disease (1 source) Other abnormalities of breathing; Translations: [Other respiratory abnormalities] Episodic Other lower respiratory disease (10 sources) Acute lower respiratory tract infection; Translations: [Unspecified acute lower respiratory infection] 09-21-2022 Episodic Other lower respiratory disease (1 source) Cough; Translations: [Cough] 11-15-2021 Episodic Other lower respiratory disease (1 source) Lung mass; Translations: [Other nonspecific abnormal finding of lung field] 11-12-2024 Episodic Other lower respiratory disease (9 sources) Dyspnea; Translations: [Shortness of breath] 03-13-2024 Episodic Other nutritional; endocrine; and metabolic disorders (20 sources) Obese class I; Translations: [Obesity, unspecified] 05-16-2018 Chronic Other nutritional; endocrine; and metabolic disorders (1 source) Weight loss; Translations: [Abnormal weight loss] 11-12-2024 Episodic Other nutritional; endocrine; and metabolic disorders (1 source) Weight decreased; Translations: [Abnormal weight loss] 01-13-2025 Episodic Other nutritional; endocrine; and metabolic disorders (1 source) Abnormal weight loss; Translations: [Weight loss] Onset: 5 Episodic Other skin disorders (1 source) Skin tag; Translations: [Other hypertrophic disorders of the skin] Episodic Other skin disorders (1 source) Eruption; Translations: [Rash and other nonspecific skin eruption] Episodic Other upper respiratory disease (3 sources) Allergic rhinitis; Translations: [Other allergic rhinitis] Chronic Other upper respiratory disease (1 source) Other allergic rhinitis; Translations: [Non-seasonal allergic rhinitis, unspecified trigger] Onset: 4 Chronic Other upper respiratory disease (7 sources) Mediastinal mass; Translations: [Other diseases of mediastinum, not elsewhere classified] 11-03-2024 Episodic Other upper respiratory disease (2 sources) Other diseases of mediastinum, not elsewhere classified; Translations: [Other diseases of mediastinum, not elsewhere classified] Onset: 5 Episodic Other upper respiratory infections (3 sources) Viral upper respiratory tract infection; Translations: [Acute upper respiratory infection, unspecified] Onset: 5 01-26-2025 Episodic Pneumonia (except that caused by tuberculosis or sexually transmitted disease) (12 sources) Pneumonia; Translations: [Pneumonia, unspecified organism] 11-25-2021 Episodic Pulmonary heart disease (20 sources) Pulmonary hypertension; Translations: [Pulmonary hypertension, unspecified] Onset: 3 05-09-2022 Chronic Comment on above: Echocardiogram from February 07, 2021 estimated PASP of 30 mmHg and stage I diastolic dysfunction Residual codes; unclassified (13 sources) Obstructive sleep apnea syndrome; Translations: [Obstructive sleep apnea (adult) (pediatric)] 06-13-2023 Chronic Comment on above: Reducing to CPAP 11 cmH2O Residual codes; unclassified (1 source) Obstructive sleep apnea (adult) (pediatric); Translations: [Obstructive sleep apnea (adult) (pediatric)] Onset: Chronic Residual codes; unclassified (1 source) Past history of procedure; Translations: [Other specified postprocedural states] Episodic Residual codes; unclassified (1 source) Pain; Translations: [Pain, unspecified] 01-24-2023 Episodic Residual codes; unclassified (20 sources) Bilateral lower limb edema; Translations: [Localized edema] 12-02-2024 Episodic Residual codes; unclassified (3 sources) Disturbance in sleep behavior; Translations: [Sleep disorder, unspecified] 12-29-2024 Episodic Residual codes; unclassified (1 source) Sleep disorder, unspecified; Translations: [Sleep disorder, unspecified] Onset: Episodic Residual codes; unclassified (1 source) Localized edema; Translations: [Localized edema] Onset: Episodic Respiratory failure; insufficiency; arrest (adult) (5 sources) Chronic hypoxemic respiratory failure; Translations: [Chronic respiratory failure with hypoxia] 11-24-2024 Chronic Secondary malignancies (20 sources) Secondary malignant neoplasm of liver; 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] 11-12-2024 Chronic Secondary malignancies (6 sources) Secondary malignant neoplastic disease; Translations: [Secondary malignant neoplasm of unspecified site] 11-23-2024 Chronic Secondary malignancies (20 sources) Regional lymph node metastasis present ; Translations: [Secondary and unspecified malignant neoplasm of lymph node, unspecified] Chronic Secondary malignancies (20 sources) Secondary malignant neoplasm of bone; Translations: [Secondary malignant neoplasm of bone] 11-24-2024 Chronic Secondary malignancies (7 sources) Secondary malignant neoplasm of lymph node; Translations: [Secondary and unspecified malignant neoplasm of lymph node, unspecified] 01-13-2025 Chronic Secondary malignancies (3 sources) Secondary malignant neoplasm of bone; Translations: [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)] Onset: Chronic Secondary malignancies (3 sources) Secondary malignant neoplasm of liver and intrahepatic bile duct; Translations: [Metastasis to liver (HCC)] Onset: Chronic Secondary malignancies (3 sources) Secondary and unspecified malignant neoplasm of lymph node, unspecified; Translations: [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)] Onset: Chronic Spondylosis; intervertebral disc disorders; other back problems (20 sources) Degeneration of lumbar intervertebral disc; Translations: [Other intervertebral disc degeneration, lumbar region] 05-16-2018 Chronic Substance-related disorders (20 sources) Cigarette smoker ; Translations: [Nicotine dependence, cigarettes, uncomplicated] Onset: Chronic Comment on above: smoker 1 ppd for 45 yearsquit 2015, due in January 2025 and previously ordered Thyroid disorders (20 sources) Hypothyroidism; Translations: [Hypothyroidism, unspecified] Onset: 11-14-2017 Chronic Thyroid disorders (5 sources) Disorder of thyroid gland; Translations: [Disorder of thyroid, unspecified] 11-24-2024 Episodic Comment on above: ON MED Unclassified (6 sources) High grade neuroendocrine carcinoma of lung; Translations: [C7A.1 - Malignant poorly differentiated neuroendocrine tumors] Unclassified (2 sources) Malignant neoplasm metastatic to bone Unclassified (2 sources) 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 Unclassified (4 sources) C34.12 - Malignant neoplasm of upper lobe, left bronchus or lung,C79.51 - Secondary malignant neoplasm of bone,C77.9 - Secondary and unspecified malignant neoplasm of lymph node, unspecified,C78.7 - Secondary malignant neoplasm of liver and intrahepatic bile duct Unclassified (4 sources) C7A.1 - Malignant poorly differentiated neuroendocrine tumors,C79.51 - Secondary malignant neoplasm of bone,C77.9 - Secondary and unspecified malignant neoplasm of lymph node, unspecified Unclassified (2 sources) C34.12 - Malignant neoplasm of upper lobe, left bronchus or lung,C79.51 - Secondary malignant neoplasm of bone,C7A.1 - Malignant poorly differentiated neuroendocrine tumors,C77.9 - Secondary and unspecified malignant neoplasm of lymph node, unspecified,C78.7 - Secondary malignant neoplasm of liver and intrahepatic bile duct Viral infection (12 sources) Disease caused by 2018-nCoV; Translations: [COVID-19] 09-15-2020 Episodic Past or Other Problems Problem Classification Problem Date Documented Da te Episodic/Chronic Diabetes mellitus without complication (5 sources) Prediabetes; Translations: [Prediabetes] Onset: 07-15-2024 Episodic Immunizations and screening for infectious disease (5 sources) Suspected disease caused by 2019-nCoV; Translations: [Suspected COVID-19 virus infection] Onset: 07-15-2024 Episodic Other gastrointestinal disorders (1 source) Diarrhea, unspecified; Translations: [Diarrhea, unspecified type] Onset: 10-16-2024 Episodic Other liver diseases (1 source) Hepatomegaly, not elsewhere classified; Translations: [Liver masses] Onset: 10-17-2024 Episodic Other liver diseases (1 source) Abnormal levels of other serum enzymes; Translations: [Abnormal levels of other serum enzymes] Onset: 11-15-2024 Episodic Other lower respiratory disease (1 source) Other nonspecific abnormal finding of lung field; Translations: [Other nonspecific abnormal finding of lung field] Onset: 11-15-2024 Episodic Other lower respiratory disease (1 source) Shortness of breath; Translations: [Shortness of breath] Onset: 04-17-2024 Episodic Other screening for suspected conditions (not mental disorders or infectious disease) (20 sources) Patient encounter status; Translations: [Encounter for screening mammogram for malignant neoplasm of breast] Onset: 10-17-2024 Episodic Pulmonary heart disease (20 sources) Acute pulmonary embolism; Translations: [Other pulmonary embolism without acute cor pulmonale] Onset: 01-24-2023 Episodic Spondylosis; intervertebral disc disorders; other back problems (20 sources) Chronic back pain ; Translations: [Dorsalgia, unspecified] Onset: 06-25-2024 05-16-2018 Episodic Results Test Name Value Interpretation Reference Range Facility Lumbar Spine 2 or 3 Viewson 02-16-2025 Lumbar Spine 2 or 3 Views Normal [facility] MR/POSTOP.ANEon 02-16-2025 MR/POSTOP.ANE Normal [facility] MR/HIOVQAGD3oo 02-16-2025 MR/POSTOPAN2 Normal [facility] Operative Reporton Operative Report Normal [facility] MR/PAT.ANEon 02-11-2025 MR/PAT.ANE Normal [facility] CBC W/Diff, Automatedon 01-16 PATH REV Reviewed Normal [facility] Comment on above: Result Comment: SEE REPORT IN PATIENT'S EMR AMENDED REPORT 02/05/25 [id number] PATH REV previously reported as: May Performed By: #### L 500.2500, L100.0100 ####[facility] [address] [place], [address] Absolute lymphocyte countOrd ered By: Sherice Jim on 02-03-2025 Lymphocytes Auto (Unsp spec) [#/Vol] 1.14 10*3/uL 0.83-4.51 [facility] Absolute neutrophil countOrd ered By: [facility] on 02-03-2025 Neutrophils (Bld) [#/Vol] 3.1 10*3/uL 2.0-7.7 [facility] Anion gap in Serum or Plasma Ordered By: Carmellaadrian Fenrandez on 02-03-2025 Anion gap [Moles/Vol] 11 mmol/L - [facility] Automated lymphocyte count a s percentage of total leukocytesOrdered By: Carmellaadrian Fernandez on 02-03-2025 Lymphocytes/100 WBC Auto (Unsp spec) 19.9 % - [facility] BUN/creatinine ratioOrdered By: Carmellaadrian Fernandez on 02-03-2025 Urea nitrogen/Creatinine [Mass ratio] 8.6 mg/mg Low - [facility] Basophil percentageOrdered B y: Carmellaadrian Fernandez on 02-03-2025 Basophils/100 WBC (Bld) 1.9 % High 0-1 [facility] Bilirubin, totalOrdered By: Sherice Fernandez on 02-03-2025 Bilirubin [Mass/Vol] 0.41 mg/dL 0.00-1.30 [facility] CBC W/Diff, Automatedon 01-16 Anisocytosis Ql (Bld) 1+ Normal [facility] Comment on above: Performed By: #### L 501.5200, L100.0100, L500.4050, L506.0400, L501.9520, L501.2300 ####[facility] [address] [place], [address] Carbon dioxide, total [Moles /volume] in Central venous bloodOrdered By: Sherice Fernandez on 02-03-2025 CO2 [Moles/Vol] 24.1 mmol/L 21.0-32.0 [facility] Chloride assayOrdered By: Melva Fernandez on 02-03-2025 Chloride [Moles/Vol] 106 mmol/L 98-108 [facility] Comprehensive Metabolic Prof ilon 02-03-2025 Albumin [Mass/Vol] 3.4 g/dL Normal 3.4-4.8 [facility] Comment on above: Performed By: #### L 501.5200, L100.0100, L500.4050, L506.0400, L501.9520, L501.2300 ####[facility] [address] [place], [address] Albumin/Globulin [Mass ratio] 1.0 {ratio} Normal 0.9-2.4 [facility] Comment on above: Performed By: #### L 501.5200, L100.0100, L500.4050, L506.0400, L501.9520, L501.2300 ####[facility] [address] [place], [address] ALK PHOS 162 U/L High 35-104 [facility] Comment on above: Performed By: #### L 501.5200, L100.0100, L500.4050, L506.0400, L501.9520, L501.2300 ####[facility] [address] [place], [address] ALT [Catalytic activity/Vol] 10 U/L Normal <=34 [facility] Comment on above: Performed By: #### L 501.5200, L100.0100, L500.4050, L506.0400, L501.9520, L501.2300 ####[facility] [address] [place], [address] AST [Catalytic activity/Vol] 39 U/L High <=31 [facility] Comment on above: Performed By: #### L 501.5200, L100.0100, L500.4050, L506.0400, L501.9520, L501.2300 ####[facility] [address] [place], [address] Bilirubin [Mass/Vol] 0.41 mg/dL Normal 0.00-1.30 [facility] Comment on above: Performed By: #### L 501.5200, L100.0100, L500.4050, L506.0400, L501.9520, L501.2300 ####[facility] [address] [place], [address] BUN/CRE 8.6 RATIO Low 10-20 [facility] Comment on above: Performed By: #### L 501.5200, L100.0100, L500.4050, L506.0400, L501.9520, L501.2300 ####[facility] [address] [place], [address] Calcium [Mass/Vol] 9.4 mg/dL Normal 7.6-11.0 [facility] Comment on above: Performed By: #### L 501.5200, L100.0100, L500.4050, L506.0400, L501.9520, L501.2300 ####[facility] [address] [place], [address] Chloride [Moles/Vol] 106 mmol/L Normal 98-108 [facility] Comment on above: Performed By: #### L 501.5200, L100.0100, L500.4050, L506.0400, L501.9520, L501.2300 ####[facility] [address] [place], [address] CO2 [Moles/Vol] 24.1 mmol/L Normal 21.0-32.0 [facility] Comment on above: Performed By: #### L 501.5200, L100.0100, L500.4050, L506.0400, L501.9520, L501.2300 ####[facility] [address] [place], [address] Creatinine [Mass/Vol] 0.82 mg/dL Normal 0.70-1.20 [facility] Comment on above: Performed By: #### L 501.5200, L100.0100, L500.4050, L506.0400, L501.9520, L501.2300 ####[facility] [address] [place], [address] ECRCL 52.81 ml/min Normal 50-250 [facility] Comment on above: Performed By: #### L 501.5200, L100.0100, L500.4050, L506.0400, L501.9520, L501.2300 ####[facility] [address] [place], [address] GAP 11 Normal 5-15 [facility] Comment on above: Performed By: #### L 501.5200, L100.0100, L500.4050, L506.0400, L501.9520, L501.2300 ####[facility] [address] [place], [address] GFR/1.73 sq M.predicted among non-blacks MDRD (S/P/Bld) [Vol rate/Area] 77 mL/min/{1.73_m2} Normal >60 [facility] Comment on above: Result Comment: mL/m in/1.73m2 CKD-EPI Creatinine Equation (2020) Performed By: #### L 501.5200, L100.0100, L500.4050, L506.0400, L501.9520, L501.2300 ####[facility] [address] [place], [address] Globulin (S) [Mass/Vol] 3.3 g/dL Normal 2.2-4.2 [facility] Comment on above: Performed By: #### L 501.5200, L100.0100, L500.4050, L506.0400, L501.9520, L501.2300 ####[facility] [address] [place], [address] Glucose [Mass/Vol] 108 mg/dL High 70-99 [facility] Comment on above: Performed By: #### L 501.5200, L100.0100, L500.4050, L506.0400, L501.9520, L501.2300 ####[facility] [address] [place], [address] Potassium [Moles/Vol] 4.0 mmol/L Normal 3.3-5.1 [facility] Comment on above: Performed By: #### L 501.5200, L100.0100, L500.4050, L506.0400, L501.9520, L501.2300 ####[facility] [address] [place], [address] Sodium [Moles/Vol] 141 mmol/L Normal 133-145 [facility] Comment on above: Performed By: #### L 501.5200, L100.0100, L500.4050, L506.0400, L501.9520, L501.2300 ####[facility] [address] [place], [address] T PROT 6.6 g/dL Normal 5.9-8.4 [facility] Comment on above: Performed By: #### L 501.5200, L100.0100, L500.4050, L506.0400, L501.9520, L501.2300 ####[facility] [address] [place], [address] Urea nitrogen [Mass/Vol] 7 mg/dL Normal 4-19 [facility] Comment on above: Performed By: #### L 501.5200, L100.0100, L500.4050, L506.0400, L501.9520, L501.2300 ####[facility] [address] [place], [place], [address] Eosinophil percentageOrdered By: Sherice Fernandez on 02-03-2025 Eosinophils/100 WBC (Bld) 0.9 % 0-5 [facility] Erythrocyte distribution wid th ratioOrdered By: [facility] Fern[facility] on 02-03-2025 Erythrocyte distribution width (RBC) [Ratio] 19.5 % High 11.6-14.6 [facility] Erythrocyte distribution wid th standard deviationOrdered By: [facility] Fern[facility] on 02-03-2025 Erythrocyte distribution width (RBC) [Ratio] 65.8 fl High 35.1-43.9 [facility] Glomerular filtration rate ( GFR) estimation/1.73 sq m using serum, plasma, or whole bOrdered By: [facility] Fern[facility] on 02-03-2025 GFR/1.73 sq M.predicted among non-blacks MDRD (S/P/Bld) [Vol rate/Area] 77 mL/min/{1.73_m2} >60 [facility] Comment on above: mL/min/1.73m2 CKD-EP I Creatinine Equation (2020) Hematocrit Auto (Bld) [Volum e fraction]Ordered By: Sherice Fernandez on 02-03-2025 Hematocrit (Bld) [Volume fraction] 32.6 % Low 37-47 [facility] Hemoglobin measurementOrdere d By: Sherice Fernandez on 02-03-2025 Hemoglobin (Bld) [Mass/Vol] 10.7 g/dL Low 12.0-15.0 [facility] Immature granulocytes/100 WB C Auto (Bld)Ordered By: Sherice Fernandez on 02-03-2025 Immature granulocytes/100 WBC (Bld) 0.300 % 0.0-0.9 [facility] Comment on above: IG% - Immature Granu locytes (promyelocytes, myelocytes and metamyelocytes) > 1% indicates that a LEFT SHIFT is Present. Laboratory - Chemistry and C hemistry - challengeOrdered By: Sherice Fernandez on 02-03-2025 AST [Catalytic activity/Vol] 39 U/L High <32 [facility] Laboratory - Hematology and Cell countsOrdered By: Sherice Fernandez on 02-03-2025 Anisocytosis Ql (Bld) 1+ [facility] MCV (mean corpuscular volume ) determinationOrdered By: Sherice Fernandez on 02-03-2025 MCV (RBC) [Entitic vol] 92.1 fL 81-99 [facility] Magnesiumon 02-03-2025 Magnesium [Mass/Vol] 1.5 mg/dL Normal 1.5-2.2 [facility] Comment on above: Performed By: #### L 501.5200, L100.0100, L500.4050, L506.0400, L501.9520, L501.2300 ####[facility] [address] [place], [place], [address] Magnesium measurement (mass/ volume)Ordered By: Sherice Fernandez on 02-03-2025 Magnesium (Unsp spec) [Mass/Vol] 1.5 mg/dL 1.5-2.2 [facility] Mean corpuscular hemoglobin (MCH) determinationOrdered By: [facility] Fern[facility] on 02-03-2025 MCH (RBC) [Entitic mass] 30.2 pg 27.0-32.0 [facility] Mean corpuscular hemoglobin concentration (MCHC) determinationOrdered By: Sherice Fernandez on 02-03-2025 MCHC (RBC) [Mass/Vol] 32.8 g/dL 32-36 [facility] Mean platelet volume determi nationOrdered By: Sherice Fernandez on 02-03-2025 Platelet mean volume (Bld) [Entitic vol] 9.6 fL 6.2-12.0 [facility] Monocyte percentageOrdered B y: Sherice Fernandez on 02-03-2025 Monocytes/100 WBC (Bld) 22.7 % High 0-10 [facility] Neutrophil percentageOrdered By: Sherice Fernandez on 02-03-2025 Neutrophils/100 WBC (Bld) 54.3 % 47-70 [facility] No Panel InformationOrdered By: Sherice Fernandez on 02-03-2025 1+ [facility] 39 U/L High <32 [facility] Nucleated red blood cell per centageOrdered By: Sherice Fernandez on 02-03-2025 Nucleated RBC/100 WBC (Bld) [Ratio] 0 % 0-5 [facility] Oncology Visit Reporton 01-16 Oncology Visit Report Normal [facility] Phosphoruson 02-03-2025 Phosphate [Mass/Vol] 4.0 mg/dL Normal 2.7-4.5 [facility] Comment on above: Performed By: #### L 501.5200, L100.0100, L500.4050, L506.0400, L501.9520, L501.2300 ####[facility] [address] [place], [address] Platelet countOrdered By: Melva Fernandez on 02-03-2025 Platelets (Bld) [#/Vol] 356 10*3/uL 150-450 [facility] Potassium measurement (mass/ volume)Ordered By: Sherice Fernandez on 02-03-2025 Potassium (Unsp spec) [Mass/Vol] 4.0 mmol/L 3.3-5.1 [facility] RBC Auto (Bld) [#/Vol]Ordere d By: Sherice Fernandez on 02-03-2025 RBC (Bld) [#/Vol] 3.54 10*6/uL Low 4.2-5.4 [facility] Serum creatinine measurement (mass/volume)Ordered By: Sherice Fernandez on 02-03-2025 Creatinine [Mass/Vol] 0.82 mg/dL 0.70-1.20 [facility] Serum globulin measurementOr dered By: Sherice Fernandez on 02-03-2025 Globulin (S) [Mass/Vol] 3.3 g/dL 2.2-4.2 [facility] Serum glucose measurement (m ass/volume)Ordered By: Sherice Fernandez on 02-03-2025 Glucose [Mass/Vol] 108 mg/dL High 70-99 [facility] Serum or plasma alanine encarnacion otransferase (ALT) measurementOrdered By: Sherice Fernandez on 02-03-2025 ALT [Catalytic activity/Vol] 10 U/L <35 [facility] Serum or plasma albumin jayro urement (mass/volume)Ordered By: Sherice Fernandez on 02-03-2025 Albumin [Mass/Vol] 3.4 g/dL 3.4-4.8 [facility] Serum or plasma albumin/glob ulin mass ratioOrdered By: Sherice Fernandez on 02-03-2025 Albumin/Globulin [Mass ratio] 1.0 {ratio} 0.9-2.4 [facility] Serum or plasma alkaline lukas sphatase measurementOrdered By: Sherice Fernandez on 02-03-2025 ALP [Catalytic activity/Vol] 162 U/L High 35-104 [facility] Serum or plasma calcium jayro urement (mass/volume)Ordered By: Sherice Fernandez on 02-03-2025 Calcium [Mass/Vol] 9.4 mg/dL 7.6-11.0 [facility] Serum or plasma urea nitroge n measurement (mass/volume)Ordered By: Sherice Fernandez on 02-03-2025 Urea nitrogen [Mass/Vol] 7 mg/dL 4-19 [facility] Sodium levelOrdered By: Carmella Fernandez on 02-03-2025 Sodium [Moles/Vol] 141 mmol/L 133-145 [facility] T4 Free Directon 02-03-2025 T4 FREE DIRECT 0.90 ng/dL Normal 0.76-1.46 [facility] Comment on above: Performed By: #### L 501.5200, L100.0100, L500.4050, L506.0400, L501.9520, L501.2300 ####[facility] [address] [place], [address] T4 freeOrdered By: Sherice burciaga on 02-03-2025 Free T4 [Mass/Vol] 0.90 ng/dL 0.76-1.46 [facility] TSH DL <= 0.005 mIU/L QnOrde red By: Sherice Fernandez on 02-03-2025 TSH Qn 3.490 uIU/mL 0.300-4.200 [facility] Thyroid Stim Hormone (TSH)on 02-03-2025 TSH 3.490 uIU/mL Normal 0.300-4.200 [facility] Comment on above: Performed By: #### L 501.5200, L100.0100, L500.4050, L506.0400, L501.9520, L501.2300 ####[facility] [address] [place], [place], [address] Total proteinOrdered By: Nain canseco Jim on 02-03-2025 Protein [Mass/Vol] 6.6 g/dL 5.9-8.4 [facility] White blood cell (WBC) count Ordered By: Sherice Jim on 02-03-2025 WBC (Bld) [#/Vol] 5.7 10*3/uL 4.4-11.0 [facility] CNOVon 01-26-2025 CNOV Office Visit (FAMPWS) BETSY RODRIGEZ ([id number]) 1955 F Date Time Provider Department 01/26/25 1:20 PM GIRIHS LEMOSKANIKA During your visit today, we recorded the following information about you: Temperature Pulse Respiration Blood pressure 99.3 degrees 80/minute 16/minute 116/66 Weight 64 kg Girish Lemos MD 01/26/2025 1:43 PM Signed Chief Complaint Patient presents with: Cough: Non-productive Throat Problem: Hoarse and sore sinus congestion with occasional green mucus Perspiration Recording using Infinite [employer] software for draft documentation of the visit was discussed with the patient/authorized home furnishings 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 Patient/authorized home furnishings sales representative agreed to proceed HPI Betsy Rodrigez is a 69 year old female who presents here today for Above Complaints.. Upper Respiratory Symptoms: - Acute onset of cough, rhinorrhea, and dysphonia began this morning. - Rhinorrhea varies in color from green to clear yellow. - Cough is non-productive; denies dyspnea, wheezing, chest pain, or chest congestion. - Slight headache and mild sore throat; denies ear pain or fullness. - Denies myalgias, but reports feeling more fatigued and run down. - Denies anosmia, ageusia, nausea, emesis, diarrhea, urinary symptoms, arthralgias, or rash. - No known exposure to COVID-19, influenza, or RSV. - Sister had a sinus infection approximately 2 weeks ago. - Has not taken any OTC medications for symptoms. - Chemotherapy was canceled this week due to illness; rescheduled for next Sunday. Past medical history, appointments, medications, allergies reviewed. Previous Medical History PAST MEDICAL HISTORY Diagnosis Date Anxiety with depression Chronic back pain Chronic kidney disease (CKD), stage III (moderate) (HCC) Colon polyp tubular adenoma [address] 07/16 to 08/17 DDD (degenerative disc disease), lumbar seeing Dr. Johnson Dysphagia Dr. 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 Fernandez Previous Surgical History PAST SURGICAL HISTORY Procedure Laterality Date APPENDECTOMY 1967 BREAST LUMPECTOMY HX Bilateral BREAST RECONSTRUCTION Right SECTION HX 1974, 1975 CHOLECYSTECTOMY 2016 COLONOSCOPY 2016 repeat in 3 years, Dr. Stiles COLONOSCOPY 03/28/2018 LYSIS OF ADHESIONS 1979 PAST SURGICAL HISTORY OF 1981 tubal reconstruction PAST SURGICAL HISTORY OF 2013 back surgery, microdiscectomy? PAST SURGICAL HISTORY OF Bilateral vericose vein stripping PAST SURGICAL HISTORY OF Bilateral heel spurs PAST SURGICAL HISTORY OF Bilateral surgery for epicondylitis PAST SURGICAL HISTORY OF cyst removal from eyelids TONSILLECTOMY HX 1957 Family History FAMILY HISTORY Problem Relation Age of Onset Cancer Mother lung Hypertension Mother Cancer Father lung No Known Problems Sister Cancer Brother lung No Known Problems Brother No Known Problems Brother Stroke Maternal Grandmother or [place], patient unsure Coronary Artery Disease Maternal Grandfather Alcohol abuse Paternal Grandfather Patient Allergies ALLERGIES Allergen Reactions Meagan Inhibitors Rash Codeine Vomiting, Other: See Comments Headache Remeron [Mirtazapin* Other: See Comments Fatigue Cbcvluu-Vcs-Xgs Red* Myalgia Michie Unknown Zetia [Ezetimibe] Myalgia Current Medications Current Outpatient Medications on File Prior to Visit Medication Sig oxyCODONE IR (ROXICODONE) 10 mg tab Take 10 mg by mouth four times a day as needed for pain. losartan (COZAAR) 50 mg tablet Take 0.5 tablets by mouth once daily. potassium chloride (K-TAB) 10 mEq tablet Take two tablets daily ondansetron orally disintegrating (ZOFRAN ODT) 4 mg disintegrating tablet Take 1 tablet by mouth every 6 hours as needed for nausea/vomiting. fluticasone (FLONASE) 50 mcg/actuation nasal spray Use 2 Sprays in each nostril once daily. Rinse mouth after use. levothyroxine (SYNTHROID) 25 mcg tablet Take 1 tablet by mouth once daily. NEXLETOL 180 mg tablet once daily. calcium carbonate (CALCIUM 500 ORAL) Take 1,000 mg by mouth once daily. HYDROcodone-acetamin ophen (NORCO) 5-325 mg per tablet Take 1 tablet by mouth every 8 hours as needed for pain. mv,jaci,iron,mn/folic acid/chol (ZBOZ-GTJI-NAWXB, PABA, ORAL) Take 1 tablet by mouth once daily. Minoxidil 2 % external solution Apply 1 mL to affected area twice daily. albuterol (PROVENTIL) 2.5 mg /3 mL (more content not included)... Normal [facility] XR CHEST 2V FRONTAL/LATon XR CHEST 2V FRONTAL/LAT * * *Final Repor t* * * DATE OF EXAM: Jan 26 2025 1:53PM WOX [id number] - XR CHEST 2V FRONTAL/LAT / PROCEDURE REASON: Viral URI with cough * * * * Physician Interpretation * * * * EXAMINATION: CHEST RADIOGRAPH (2 VIEW FRONTAL and LATERAL) CLINICAL HISTORY: Viral URI with cough MQ: [id number]_6 EXAM DATE/TIME: 01/26/2025 1:53 PM COMPARISON: CT chest dated 10/30/2024 RESULT: Lines, tubes, and devices: Right chest port with tip projecting over the superior cavoatrial junction. Lungs and pleura: Stable coarsening and reticulation of the interstitial markings in a peripheral predominance with stable mild scarring in the bilateral mid to lower lung zones. Approximately 2 cm left perihilar mass again identified. Cardiomediastinal silhouette: Stable cardiomediastinal silhouette. Bones and soft tissues: Degenerative changes are present within the thoracic spine. Surgical clips in the upper abdomen. IMPRESSION: 1. Stable findings of underlying interstitial lung disease. 2. Redemonstration of an approximately 2 cm left perihilar mass Hot Box Operator: [facility] Transcribe Date/Time: Jan 26 2025 1:53P Dictated by : RAJIV DONOVAN MD This examination was interpreted and the report reviewed and electronically signed by: RAJIV DONOVAN MD on Jan 26 2025 1:58PM EST [id number] Normal [facility] XR Chest PA and Lateralon IMPRESSION: 1. Stable findings of underlying interstitial lung disease. 2. Redemonstration of an approximately 2 cm left perihilar mass Hot Box Operator: [facility] Transcribe Date/Time: Jan 26 2025 1:53P Dictated by : RAJIV DONOVAN MD This examination was interpreted and the report reviewed and electronically signed by: RAJIV DONOVAN MD on Jan 26 2025 1:58PM [facility] DIVISION OF RADIOLOGY * * *Final Report* * * DATE OF EXAM: Jan 26 2025 1:53PM WOX [id number] - XR CHEST 2V FRONTAL/LAT / PROCEDURE REASON: Viral URI with cough * * * * Physician Interpretation * * * * EXAMINATION: CHEST RADIOGRAPH (2 VIEW FRONTAL & LATERAL) CLINICAL HISTORY: Viral URI with cough MQ: [id number]_6 EXAM DATE/TIME: 01/26/2025 1:53 PM COMPARISON: CT chest dated 10/30/2024 RESULT: Lines, tubes, and devices: Right chest port with tip projecting over the superior cavoatrial junction. Lungs and pleura: Stable coarsening and reticulation of the interstitial markings in a peripheral predominance with stable mild scarring in the bilateral mid to lower lung zones. Approximately 2 cm left perihilar mass again identified. Cardiomediastinal silhouette: Stable cardiomediastinal silhouette. Bones and soft tissues: Degenerative changes are present within the thoracic spine. Surgical clips in the upper abdomen. DIVISION OF RADIOLOGY Provider, [facility] [place] - 01/26/2025 * * *Final Report* * * DATE OF EXAM: Jan 26 2025 1:53PM WOX [id number] - XR CHEST 2V FRONTAL/LAT / PROCEDURE REASON: Viral URI with cough * * * * Physician Interpretation * * * * EXAMINATION: CHEST RADIOGRAPH (2 VIEW FRONTAL & LATERAL) CLINICAL HISTORY: Viral URI with cough MQ: [id number] EXAM DATE/TIME: 01/26/2025 1:53 PM COMPARISON: CT chest dated 10/30/2024 RESULT: Lines, tubes, and devices: Right chest port with tip projecting over the superior cavoatrial junction. Lungs and pleura: Stable coarsening and reticulation of the interstitial markings in a peripheral predominance with stable mild scarring in the bilateral mid to lower lung zones. Approximately 2 cm left perihilar mass again identified. Cardiomediastinal silhouette: Stable cardiomediastinal silhouette. Bones and soft tissues: Degenerative changes are present within the thoracic spine. Surgical clips in the upper abdomen. IMPRESSION IMPRESSION: 1. Stable findings of underlying interstitial lung disease. 2. Redemonstration of an approximately 2 cm left perihilar mass Hot Box Operator: PSCB Transcribe Date/Time: Jan 26 2025 1:53P Dictated by : RAJIV DONOVAN MD This examination was interpreted and the report reviewed and electronically signed by: RAJIV DONOVAN MD on Jan 26 2025 1:58PM EST [facility] Radiology Study observation (narrative) Anant schneider [facility] XR Chest PA and LateralOrder ed By: Ccf Provider on 01-26-[address] [facility] CNOVon 01-13-2025 CNOV Office Visit (FAMPWS) BETSY RODRIGEZ ([id number]) 1955 F Date Time Provider Department 01/13/25 9:20 AM GIRISH LEMOS During your visit today, we recorded the following information about you: Pulse Respiration Blood pressure Weight 72/minute 16/minute 104/60 62.1 kg Girish Lemos MD 01/13/2025 10:35 AM Signed Chief Complaint Patient presents with: Hospital F/U [facility] Betsy Rodrigez is a 69 year old female who presents here today for Hospital discharge follow up. Patient admitted to [facility] from 01/09 to 01/10 for complaint of sternal chest pain which started while driving. Workup for ACS in the hospital was negative, normal echo, and was diagnosed with musculoskeletal etiology. Did find some congestion and edema on CXR and was started on Lasix 20 mg daily PRN leg swelling/dyspnea on discharge. Also noted some leukocytosis likely 2/2 steroid use and Neupogen for history of lung cancer with mets to liver. Since discharge, patient has not had any recurrent chest pain. On gabapentin and oxycodone for pain for her small cell lung cancer with mets to liver and bone. Has not needed lasix yet and has not picked up from pharmacy. Denies fever/chills, chest pain, SOB, LE edema, orthopnea. Eating small meals throughout the day due to lack of appetite. Taking Zofran PRN for nausea. Denies vomiting or diarrhea. Weight down almost 40 lbs in the last 6 months. Patient has follow up with oncology in about 2 weeks and thinks she will be getting her last dose of this round of chemo. Plans to get CT chest and abdomen after completed. Patient denies feeling depressed or anxious with this new diagnosis. Does not want referral to counseling at this time. BP borderline low today on 50 mg losartan daily. Gets lightheaded for a few seconds if she stands up quickly. Not checking BP at home. Would like to try lower dosage. Past medical history, appointments, medications, allergies reviewed. Previous Medical History PAST MEDICAL HISTORY Diagnosis Date Anxiety with depression Chronic back pain Chronic kidney disease (CKD), stage III (moderate) (HCC) Colon polyp tubular adenoma [facility] 07/16 to 08/17 DDD (degenerative disc disease), lumbar seeing Dr. Johnson Dysphagia Dr. 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 Fernandez Previous Surgical History PAST SURGICAL HISTORY Procedure Laterality Date APPENDECTOMY 1967 BREAST LUMPECTOMY HX Bilateral BREAST RECONSTRUCTION Right SECTION HX 1974, 1976 CHOLECYSTECTOMY 2016 COLONOSCOPY 2016 repeat in 3 years, Dr. Stiles COLONOSCOPY 03/28/2018 LYSIS OF ADHESIONS 1979 PAST SURGICAL HISTORY OF 1981 tubal reconstruction PAST SURGICAL HISTORY OF 2013 back surgery, microdiscectomy? PAST SURGICAL HISTORY OF Bilateral vericose vein stripping PAST SURGICAL HISTORY OF Bilateral heel spurs PAST SURGICAL HISTORY OF Bilateral surgery for epicondylitis PAST SURGICAL HISTORY OF cyst removal from eyelids TONSILLECTOMY HX 1957 Family History FAMILY HISTORY Problem Relation Age of Onset Cancer Mother lung Hypertension Mother Cancer Father lung No Known Problems Sister Cancer Brother lung No Known Problems Brother No Known Problems Brother Stroke Maternal Grandmother or [place], patient unsure Coronary Artery Disease Maternal Grandfather Alcohol abuse Paternal Grandfather Patient Allergies ALLERGIES Allergen Reactions Meagan Inhibitors Rash Codeine Vomiting, Other: See Comments Headache Remeron [Mirtazapin* Other: See Comments Fatigue Modszyn-Qjr-Snc Red* Myalgia Michie Unknown Zetia [Ezetimibe] Myalgia Current Medications Current Outpatient Medications on File Prior to Visit Medication Sig potassium chloride (K-TAB) 10 mEq tablet Take two tablets daily ondansetron orally disintegrating (ZOFRAN ODT) 4 mg disintegrating tablet Take 1 tablet by mouth every 6 hours as needed for nausea/vomiting. losartan (COZAAR) 50 mg tablet Take 1 tablet by mouth once daily. fluticasone (FLONASE) 50 mcg/actuation nasal spray Use 2 Sprays in each nostril once daily. Rinse mouth after use. levothyroxine (SYNTHROID) 25 mcg tablet Take 1 tablet by mouth once daily. NEXLETOL 180 mg tablet once daily. (Patient not taking: Reported on 11/05/2024) calcium carbonate (CALCIUM 500 ORAL) Take 1,000 mg by mouth once daily. HYDROcodone-acetamin ophen (NORCO) 5-325 mg per tablet Take 1 tablet by trina (more content not included)... Normal [facility] Absolute lymphocyte countOrd ered By: Estrella Cabezas on 01-10-2025 Lymphocytes Auto (Unsp spec) [#/Vol] 1.88 10*3/uL 0.83-4.51 [facility] Absolute neutrophil countOrd ered By: Estrella Cabezas on 01-10-2025 Neutrophils (Bld) [#/Vol] 43.6 10*3/uL High 2.0-7.7 [facility] Anion gap in Serum or Plasma Ordered By: Estrella Cabezas on 01-10-2025 Anion gap [Moles/Vol] 11 mmol/L 5-15 [facility] BUN/creatinine ratioOrdered By: Estrella Cabezas on 01-10-2025 Urea nitrogen/Creatinine [Mass ratio] 21.6 mg/mg High 10- [facility] Basic Metabolic Profile (BMP )on 01-10-2025 BUN/CRE 21.6 RATIO High - [facility] Comment on above: Performed By: #### L 500.2500, L100.0100 ####[facility] [address] [place], [address] Calcium [Mass/Vol] 8.5 mg/dL Normal 7.6-11.0 [facility] Comment on above: Performed By: #### L 500.2500, L100.0100 ####[facility] [address] [place], [address] Chloride [Moles/Vol] 104 mmol/L Normal 98-108 [facility] Comment on above: Performed By: #### L 500.2500, L100.0100 ####[facility] [address] [place], [address] CO2 [Moles/Vol] 26.7 mmol/L Normal 21.0-32.0 [facility] Comment on above: Performed By: #### L 500.2500, L100.0100 ####[facility] [address] [place], [address] Creatinine [Mass/Vol] 0.87 mg/dL Normal 0.70-1.20 [facility] Comment on above: Performed By: #### L 500.2500, L100.0100 ####[facility] [address] [place], [address] ECRCL 54.90 ml/min Normal 50-250 [facility] Comment on above: Performed By: #### L 500.2500, L100.0100 ####[facility] [address] [place], [address] GAP 11 Normal 5-15 [facility] Comment on above: Performed By: #### L 500.2500, L100.0100 ####[facility] [address] [place], [address] GFR/1.73 sq M.predicted among non-blacks MDRD (S/P/Bld) [Vol rate/Area] 72 mL/min/{1.73_m2} Normal >60 [facility] Comment on above: Result Comment: mL/m in/1.73m2 CKD-EPI Creatinine Equation (2020) Performed By: #### L 500.2500, L100.0100 ####[facility] [address] [place], [address] Glucose [Mass/Vol] 77 mg/dL Normal 70-99 [facility] Comment on above: Performed By: #### L 500.2500, L100.0100 ####[facility] [address] [place], [address] Potassium [Moles/Vol] 3.9 mmol/L Normal 3.3-5.1 [facility] Comment on above: Performed By: #### L 500.2500, L100.0100 ####[facility] [address] [place], [address] Sodium [Moles/Vol] 142 mmol/L Normal 133-145 [facility] Comment on above: Performed By: #### L 500.2500, L100.0100 ####[facility] [address] [place], [address] Urea nitrogen [Mass/Vol] 19 mg/dL Normal 4-19 [facility] Comment on above: Performed By: #### L 500.2500, L100.0100 ####[facility] [address] [place], [address] Bedside Glucoseon 01-10-2025 FINGERSTICK GLU 75 mg/dL Normal 74-106 [facility] Comment on above: Result Comment: FABRIZIO GEMENT OF PATIENT CARE PER NURSING PROTOCOL Performed By: #### L 501.080 ####[facility] [address] [place], [address] FINGERSTICK GLU 116 mg/dL High 74-106 [facility] Comment on above: Result Comment: FABRIZIO GEMENT OF PATIENT CARE PER NURSING PROTOCOL Performed By: #### L 501.080 ####[facility] [address] [place], [address] Blood band neutrophil count as percentage of total leukocytesOrdered By: Estrella Cabezas on 01-10-2025 Band form neutrophils/100 WBC (Bld) 1 % 0-5 [facility] Blood lymphocytes/100 leukoc ytesOrdered By: Estrella Cabezas on 01-10-2025 Lymphocytes/100 WBC (Bld) 4 % Low 19-41 [facility] Blood metamyelocytes/100 isa kocytesOrdered By: Estrlela Cabezas on 01-10-2025 Metamyelocytes/100 WBC (Bld) 2 % High 0-1 [facility] Blood monocytes/100 leukocyt esOrdered By: Estrella Cabezas on 01-10-2025 Monocytes/100 WBC (Bld) 1 % 0-10 [facility] Blood segmented neutrophils/ 100 leukocytesOrdered By: Estrella Cabezas on 01-10-2025 Segmented neutrophils/100 WBC (Bld) 92 % High 47-70 [facility] COVID 19 AG RAPID (RN PARAS T)on 01-10-2025 SARS-CoV-2 (COVID-19) RNA DEBBY+probe Ql (Unsp spec) Normal [facility] Comment on above: Performed By: #### M 100.505 ####[facility] [address] [place], [address] Carbon dioxide, total [Moles /volume] in Central venous bloodOrdered By: Estrella Cabezas on 01-10-2025 CO2 [Moles/Vol] 26.7 mmol/L 21.0-32.0 [facility] Cells counted Molgen (Bld/Ti ss) [#]Ordered By: Estrella Cabezas on 01-10-2025 Differential Total Cells Counted 100 MANUAL DIFF [facility] Chloride assayOrdered By: David Cabezas on 01-10-2025 Chloride [Moles/Vol] 104 mmol/L 98-108 [facility] Discharge Instructionon 12-17 Discharge Instruction Normal [facility] Echocardiogram study reportO rdered By: Santi Hurd on 01-10-2025 Study report [facility] [address] [place] [address] Echo Complete 01/10/25 0851 MR#: [id number] Acct: [id number] Name: BETSY RODRIGEZ Rep #:[id number] : 1955 69 From: Santi Hudr MD Attending Dr: Dr. Jassi Borden MD Status: ADM FARIBA Ordering Dr: Estrella Cabezas MD Date: Location: PCU Sex: F C Admitted: 01/09/25 Reason For Study Reason For Study: Chest Pain Procedure This was a 2D Doppler, Color Flow transthoracic echocardiogram. Myocardial strain analysis was performed in this exam to aid in the assessment of cardiac function. Exam performed portable in patient room. Left Ventricle Normal size and thickness. The global longitudinal strain = -24.6 % (normal). The LV systolic function is normal. EF is 65 %. Normal diastology for age. Right Ventricle Normal right ventricle. Atria The left and right atria are normal. Mitral Valve Trivial mitral valve insufficiency. Tricuspid Valve Trivial tricuspid valve insufficiency. Unable to estimate RV systolic pressure due to insufficient tricuspid regurgitant envelope. Aortic Valve Trisinus/trileaflet aortic valve. Pulmonic Valve The pulmonic valve is not well visualized. Great Vessels Normal sized aortic root. Pericardium/Pleural No pericardial effusion. MMode/2D Measurements & Calculations LVIDd: 5.1 cm IVSd: 0.82 cm Ao root diam: 3.0 cm LVIDs: 3.4 cm LVPWd: 0.74 cm RVDd: 3.1 cm FS: 33.0 % LAV(MOD-bp): 49.3 ml LVAd ap4: 31.3 cm2 SV(MOD-sp4): 71.7 ml LAV(MOD-bp) Indexed: 29.2 ml/m2 LVLd ap4: 8.0 cm SI(MOD-sp4): 42.5 ml/m2 LAV(MOD-sp2): 49.8 ml EDV(MOD-sp4): 102.6 ml LAV(MOD-sp4): 45.0 ml EDV(sp4-el): 103.6 ml LVAs ap4: 15.3 cm2 LVLs ap4: 6.2 cm ESV(MOD-sp4): 30.9 ml ESV(sp4-el): 32.1 ml EF(MOD-sp4): 69.9 % EF(sp4-el): 69.0 % SV(sp4-el): 71.5 ml LA A4 area: 16.7 cm2 LA dimension(2D): 4.0 cm RA A4 area: 10.7 cm2 TAPSE: 1.6 cm Time Measurements MV dec time: 0.39 sec Doppler Measurements & Calculations MV E max levi: 87.3 cm/sec Lat Peak E' Levi: 10.5 cm/sec Med Peak E' Levi: 7.5 cm/sec MV A max levi: 123.4 cm/sec E/E' lat: 8.3 E/E' med: 11.6 MV E/A: 0.71 MV V2 max: 165.0 cm/sec MV P1/2t max levi: 94.1 cm/sec Ao V2 max: 129.5 cm/sec MV max P.9 mmHg MV P1/2t: 122.5 msec Ao max P.7 mmHg MV V2 mean: 72.9 cm/sec MV mean P.6 mmHg MV dec slope: 225.1 cm/sec2 MV V2 VTI: 41.9 cm MVA(P1/2t): 1.8 cm2 LV V1 max: 124.7 cm/sec LV V1 max P.2 mmHg LV V1 mean P.6 mmHg LV V1 mean: 89.7 cm/sec LV V1 VTI: 26.9 cm ECHO/Echo Complete Interpretation Summary The LV systolic function is normal. EF is 65 %. The global longitudinal strain = -24.6 % (normal). Ordering Physician: Estrella Cabezas Referring Physician: Estrella Cabezas Performed By: Sesar Ferrera RCS 01/10/25 1130 Date _ Santi Hurd MD CC: Dr. Fabricio Lemos MD; Dr. Estrella Cabezas MD; Dr. Jassi Borden MD ~ Date Dictated: 01/10/2551 Date Transcribed: 01/10/251129 Hot Box Operator: Signed [facility] Work Phone: Erythrocyte distribution wid th (RBC) [Ratio]Ordered By: Estrella Cabezas on 01-10-2025 Erythrocyte distribution width (RBC) [Entitic vol] 59.4 fL High 35.1-43.9 [facility] Erythrocyte distribution wid th ratioOrdered By: Estrella Cabezas on 01-10-2025 Erythrocyte distribution width (RBC) [Ratio] 18.6 % High 11.6-14.6 [facility] Erythrocyte distribution wid th standard deviationOrdered By: Estrella Cabezas on 01-10-2025 Erythrocyte distribution width (RBC) [Ratio] 59.4 fl High 35.1-43.9 [facility] Estimation of creatinine lubna aranceOrdered By: Estrella Cabezas on 01-10-2025 Estimated Creatinine Clearance Calc 54.90 ml/min 50-250 [facility] GFR/1.73 sq M.predicted mary g non-blacks MDRD (S/P/Bld) [Vol rate/Area]Ordered By: Estrella Cabezas on 01-10-2025 Estimated GFR (MDRD) Non-Af Amer 72 >60 [facility] Comment on above: mL/min/1.73m2 CKD-EP I Creatinine Equation (2020) Glomerular filtration rate ( GFR) estimation/1.73 sq m using serum, plasma, or whole bOrdered By: Estrella Cabezas on 01-10-2025 GFR/1.73 sq M.predicted among non-blacks MDRD (S/P/Bld) [Vol rate/Area] 72 mL/min/{1.73_m2} >60 [facility] Comment on above: mL/min/1.73m2 CKD-EP I Creatinine Equation (2020) [facility] deOrdered By: Estrella Cabezas on 01-10-2025 Bedside Glucose (Misc Panel) 75 mg/dL 74-106 [facility] Comment on above: MANAGEMENT OF PATIEN T CARE PER NURSING PROTOCOL Glucose [Mass/Vol] 75 mg/dL 74-106 [facility] Comment on above: MANAGEMENT OF PATIEN T CARE PER NURSING PROTOCOL Hematocrit Auto (Bld) [Volum e fraction]Ordered By: Estrella Cabezas on 01-10-2025 Hematocrit (Bld) [Volume fraction] 30.9 % Low 37-47 [facility] Hemoglobin measurementOrdere d By: Estrella Cabezas on 01-10-2025 Hemoglobin (Bld) [Mass/Vol] 10.4 g/dL Low 12.0-15.0 [facility] Lymphocytes Auto (Unsp spec) [#/Vol]Ordered By: Estrella Cabezas on 01-10-2025 Lymphocytes (Bld) [#/Vol] 1.88 10*3/uL 0.83-4.51 [facility] MCV (mean corpuscular volume ) determinationOrdered By: Estrella Cabezas on 01-10-2025 MCV (RBC) [Entitic vol] 89.0 fL 81-99 [facility] Mean corpuscular hemoglobin (MCH) determinationOrdered By: Estrella Cabezas on 01-10-2025 MCH (RBC) [Entitic mass] 30.0 pg 27.0-32.0 [facility] Mean corpuscular hemoglobin concentration (MCHC) determinationOrdered By: Estrella Cabezas on 01-10-2025 MCHC (RBC) [Mass/Vol] 33.7 g/dL 32-36 [facility] Mean platelet volume determi nationOrdered By: Estrella Cabezas on 01-10-2025 Platelet mean volume (Bld) [Entitic vol] 9.8 fL 6.2-12.0 [facility] Neutrophil percentageOrdered By: Estrella Cabezas on 01-10-2025 Neutrophils (%) (Auto) Not Reportable [facility] Pathologist review Scott (Unsp spec) [Interp]Ordered By: Estrella Cabezas on 01-10-2025 Differential Pathologist's Review January [facility] Platelet countOrdered By: David Cabezas on 01-10-2025 Platelets (Bld) [#/Vol] 419 10*3/uL 150-450 [facility] Platelet estimateOrdered By: Estrella Cabezas on 01-10-2025 Platelets LM Ql (Bld) A ADEQ [facility] Platelets LM Ql (Bld)Ordered By: Estrella aCbezas on 01-10-2025 Platelet Estimate A [facility] Potassium (Unsp spec) [Mass/ Vol]Ordered By: Estrella Cabezas on 01-10-2025 Potassium [Moles/Vol] 3.9 mmol/L 3.3-5.1 [facility] Potassium measurement (mass/ volume)Ordered By: Estrella Cabezas on 01-10-2025 Potassium (Unsp spec) [Mass/Vol] 3.9 mmol/L 3.3-5.1 [facility] RBC Auto (Bld) [#/Vol]Ordere d By: Estrella Cabezas on 01-10-2025 RBC (Bld) [#/Vol] 3.47 10*6/uL Low 4.2-5.4 [facility] Review by pathologistOrdered By: Estrella Cabezas on 01-10-2025 Pathologist review Scott (Unsp spec) [Interp] January [facility] Pathologist review Scott (Unsp spec) [Interp] Reviewed [facility] Segmented neutrophils/100 WB C (Bld)Ordered By: Estrella Cabezas on 01-10-2025 Neutrophils/100 WBC (Bld) 92 % High 47-70 [facility] Serum creatinine measurement (mass/volume)Ordered By: Estrella Cabezas on 01-10-2025 Creatinine [Mass/Vol] 0.87 mg/dL 0.70-1.20 [facility] Serum glucose measurement (m ass/volume)Ordered By: Estrella Cabezas on 01-10-2025 Glucose [Mass/Vol] 77 mg/dL 70-99 [facility] Serum or plasma calcium jayro urement (mass/volume)Ordered By: Estrella Cabezas on 01-10-2025 Calcium [Mass/Vol] 8.5 mg/dL 7.6-11.0 [facility] Serum or plasma urea nitroge n measurement (mass/volume)Ordered By: Estrella Cabezas on 01-10-2025 Urea nitrogen [Mass/Vol] 19 mg/dL 4-19 [facility] Sodium levelOrdered By: Kenia Cabezas on 01-10-2025 Sodium [Moles/Vol] 142 mmol/L 133-145 [facility] Total cell countOrdered By: Estrella Cabezas on 01-10-2025 Cells counted Molgen (Bld/Tiss) [#] 100 MANUAL DIFF [facility] White blood cell (WBC) count Ordered By: Estrella Cabezas on 01-10-2025 WBC (Bld) [#/Vol] 46.9 10*3/uL High 4.4-11.0 [facility] Comment on above: CRITICAL VALUE MAIN D TO [id number]/26/25 0548 Tobi Yousif.RESULTS READ BACK BY SAME. 12 Lead EKGon 01-09-2025 12 Lead EKG Normal [facility] Automated lymphocyte count a s percentage of total leukocytesOrdered By: Austin Mack on 01-09-2025 Lymphocytes/100 WBC Auto (Unsp spec) 4.7 % Low 19-41 [facility] Basic Metabolic Profile (BMP )on 01-09-2025 BUN/CRE 25.5 RATIO High 10-20 [facility] Comment on above: Performed By: #### L 100.0100, L500.2500, L501.4021 ####[facility] [address] [place], [address] Calcium [Mass/Vol] 8.8 mg/dL Normal 7.6-11.0 [facility] Comment on above: Performed By: #### L 100.0100, L500.2500, L501.4021 ####[facility] [address] [place], [id number] Chloride [Moles/Vol] 107 mmol/L Normal 98-108 [facility] Comment on above: Performed By: #### L 100.0100, L500.2500, L501.4021 ####[facility] [address] [place], [address] CO2 [Moles/Vol] 20.1 mmol/L Low 21.0-32.0 [facility] Comment on above: Performed By: #### L 100.0100, L500.2500, L501.4021 ####[facility] [address] [place], [address] Creatinine [Mass/Vol] 0.67 mg/dL Low 0.70-1.20 [facility] Comment on above: Performed By: #### L 100.0100, L500.2500, L501.4021 ####[facility] [address] [place], [address] ECRCL 61.24 ml/min Normal 50-250 [facility] Comment on above: Performed By: #### L 100.0100, L500.2500, L501.4021 ####[facility] [address] [place], [address] GAP 14 Normal 5-15 [facility] Comment on above: Performed By: #### L 100.0100, L500.2500, L501.4021 ####[facility] [address] [place], [address] GFR/1.73 sq M.predicted among non-blacks MDRD (S/P/Bld) [Vol rate/Area] 94 mL/min/{1.73_m2} Normal >60 [facility] Comment on above: Result Comment: mL/m in/1.73m2 CKD-EPI Creatinine Equation (2020) Performed By: #### L 100.0100, L500.2500, L501.4021 ####[facility] [address] [place], [address] Glucose [Mass/Vol] 64 mg/dL Low 70-99 [facility] Comment on above: Performed By: #### L 100.0100, L500.2500, L501.4021 ####[facility] [address] [place], [address] Potassium [Moles/Vol] 3.6 mmol/L Normal 3.3-5.1 [facility] Comment on above: Performed By: #### L 100.0100, L500.2500, L501.4021 ####[facility] [address] [place], [address] Sodium [Moles/Vol] 141 mmol/L Normal 133-145 [facility] Comment on above: Performed By: #### L 100.0100, L500.2500, L501.4021 ####[facility] [address] [place], [address] Urea nitrogen [Mass/Vol] 17 mg/dL Normal 4-19 [facility] Comment on above: Performed By: #### L 100.0100, L500.2500, L501.4021 ####[facility] [address] [place], [address] Basophil percentageOrdered B y: Austin Harrisasael on 01-09-2025 Basophils/100 WBC (Bld) 0.1 % 0-1 [facility] CBC W/Diff, Automatedon 04-2 PLT EST SLT INC Normal ADEQ [facility] Comment on above: Performed By: #### L 100.0100, L500.2500, L501.4021 ####[facility] [address] [place], [place], [id number] COVID-19 virus antigen assay Ordered By: Estrella Cabezas on 01-09-2025 SARS-CoV-2 (COVID-19) Ag IA.rapid Ql (Resp) [facility] Chest 1 View (Portable)on Chest 1 View (Portable) Normal [facility] Echo Completeon 01-09-2025 Echo Complete Normal [facility] Emergency Department Summary on 01-09-2025 Emergency Department Summary Normal [facility] Eosinophil percentageOrdered By: Austin Mack on 01-09-2025 Eosinophils/100 WBC (Bld) 0.0 % 0-5 [facility] H AND P Exam - Hospitaliston 01-09-2025 H&P Exam - Hospitalist Normal [facility] Immature granulocytes/100 WB C Auto (Bld)Ordered By: Austin Mack on 01-09-2025 Immature granulocytes/100 WBC (Bld) 1.800 % High 0.0-0.9 [facility] Comment on above: IG% - Immature Granu locytes (promyelocytes, myelocytes and metamyelocytes) > 1% indicates that a LEFT SHIFT is Present. L499.0042on 01-09-2025 Trop T High Sen 19 ng/L High <=14 [facility] Comment on above: Performed By: #### L 499.0042 ####[facility] [address] [place], [place], [address] L499.0043on 01-09-2025 Trop T High Sen 13 ng/L Normal <=14 [facility] Comment on above: Performed By: #### L 499.0043 ####[facility] [address] [place], [address] L501.4021on 01-09-2025 Trop T High Sen 12 ng/L Normal <=14 [facility] Comment on above: Performed By: #### L 100.0100, L500.2500, L501.4021 ####[facility] [address] [place], [address] L503.7505on 01-09-2025 Natriuretic peptide B (Bld) [Mass/Vol] 3119 pg/mL High <=900 [facility] Comment on above: Result Comment: Hear t Failure Unlikely: < 300 pg/mLHeart Failure Likely< 50 Years: > 450 pg/mL50-75 Years: > 900 pg/mL>75 Years: > 1800 pg/mL Performed By: #### L 503.7505 ####[facility] [address] [place], [address] Lymphocytes/100 WBC Auto (Un sp spec)Ordered By: Austin Mack on 01-09-2025 Lymphocytes/100 WBC (Bld) 4.7 % Low 19-41 [facility] Monocyte percentageOrdered B y: Austin Mack on 01-09-2025 Monocytes/100 WBC (Bld) 0.2 % 0-10 [facility] Natriuretic peptide.B prohor milan N-Terminal [Mass/Vol]Ordered By: Austin Mack on 01-09-2025 Natriuretic peptide B (Bld) [Mass/Vol] 3119 pg/mL High <900 [facility] Comment on above: Heart Failure Unlike ly: < 300 pg/mLHeart Failure Likely< 50 Years: > 450 pg/mL50-75 Years: > 900 pg/mL>75 Years: > 1800 pg/mL Natriuretic peptide.B prohor milan N-Terminal [Mass/volume] in Serum or PlasmaOrdered By: Austin Mack on 01-09-2025 Natriuretic peptide.B prohormone N-Terminal [Mass/Vol] 3119 pg/mL High <900 [facility] Comment on above: Heart Failure Unlike ly: < 300 pg/mLHeart Failure Likely< 50 Years: > 450 pg/mL50-75 Years: > 900 pg/mL>75 Years: > 1800 pg/mL Nucleated red blood cell per centageOrdered By: Austin Mack on 01-09-2025 Nucleated RBC/100 WBC (Bld) [Ratio] 0 % 0-5 [facility] RESPIRATORY PANEL MOLECULARo n 01-09-2025 RP PANEL Normal [facility] Comment on above: Performed By: #### M [id number] ####[facility] [address] [place], [address] Respiratory pathogens DNA an d RNA panel DEBBY+probe (Resp)Ordered By: Estrella Cabezas on 01-09-2025 Respiratory Panel (PCR) [facility] Respiratory pathogens detect ion panel by molecular detection methodOrdered By: Estrella Cabezas on 01-09-2025 Respiratory pathogens DNA and RNA panel DEBBY+probe (Resp) [facility] SARS-CoV-2 (COVID-19) Ag IA. rapid Ql (Resp)Ordered By: Estrella Cabezas on 01-09-2025 SARS-CoV-2 Antigen (Rapid) [facility] Troponin T.cardiac High sens itivity method [Mass/Vol]Ordered By: Austin Mack on 01-09-2025 Troponin T High Sensitivity 4 Hour 13 ng/L <14 [facility] Troponin T High Sensitivity 2 Hour 19 ng/L High <14 [facility] Troponin T High Sensitivity 12 ng/L <14 [facility] Troponin T.cardiac [Mass/vol ume] in Serum or Plasma by High sensitivity methodOrdered By: Austin Mack on 01-09-2025 Troponin T.cardiac High sensitivity method [Mass/Vol] 13 ng/L <14 [facility] Troponin T.cardiac High sensitivity method [Mass/Vol] 19 ng/L High <14 [facility] Troponin T.cardiac High sensitivity method [Mass/Vol] 12 ng/L <14 [facility] Absolute neutrophil countOrd ered By: Sherice Fernandez on 01-06-2025 Neutrophils (Bld) [#/Vol] 5.9 10*3/uL 2.0-7.7 [facility] Anion gap in Serum or Plasma Ordered By: Sherice Fernandez on 01-06-2025 Anion gap [Moles/Vol] 13 mmol/L 5-15 [facility] BUN/creatinine ratioOrdered By: Sherice Fernandez on 01-06-2025 Urea nitrogen/Creatinine [Mass ratio] 7.9 mg/mg Low 10-20 [facility] Basophil percentageOrdered B y: Sherice Fernandez on 01-06-2025 Basophils/100 WBC (Bld) 0.7 % 0-1 [facility] Bilirubin, totalOrdered By: Sherice Fernandez on 01-06-2025 Bilirubin [Mass/Vol] 0.62 mg/dL 0.00-1.30 [facility] Blood manual differential co mment interpretation (narrative result)Ordered By: Sherice Fernandez on 01-06-2025 Manual differential comment Scott (Bld) [Interp] SCANNED [facility] Comment on above: MONOCYTOSIS NOTED CBC W/Diff, Automatedon 12-17 PATH REV Reviewed Normal [facility] Comment on above: Result Comment: SEE REPORT IN PATIENT'S EMR AMENDED REPORT 01/06/25 1328 PATH REV previously reported as: January Performed By: #### L 500.2500, L100.0100, L501.2300, L501.5200 ####[facility] [address] [place], [address] Absolute Lymph 1.05 X10 3/uL Normal 0.83-4.51 [facility] Comment on above: Performed By: #### L 506.0400, L100.0100, L501.9520, L501.5200, L501.2300, L500.4050 ####[facility] [address] [place], [address] Absolute Neut 5.9 X10 3/uL Normal 2.0-7.7 [facility] Comment on above: Performed By: #### L 506.0400, L100.0100, L501.9520, L501.5200, L501.2300, L500.4050 ####[facility] [address] [place], [address] Basophils/100 WBC (Bld) 0.7 % Normal 0-1 [facility] Comment on above: Performed By: #### L 506.0400, L100.0100, L501.9520, L501.5200, L501.2300, L500.4050 ####[facility] [address] [place], [address] Eosinophils/100 WBC (Bld) 0.3 % Normal 0-5 [facility] Comment on above: Performed By: #### L 506.0400, L100.0100, L501.9520, L501.5200, L501.2300, L500.4050 ####[facility] [address] [place], [address] Erythrocyte distribution width (RBC) [Ratio] 18.2 % High 11.6-14.6 [facility] Comment on above: Performed By: #### L 506.0400, L100.0100, L501.9520, L501.5200, L501.2300, L500.4050 ####[facility] [address] [place], [address] Hematocrit (Bld) [Volume fraction] 33.1 % Low 37-47 [facility] Comment on above: Performed By: #### L 506.0400, L100.0100, L501.9520, L501.5200, L501.2300, L500.4050 ####[facility] [address] [place], [address] Hemoglobin (Bld) [Mass/Vol] 10.8 g/dL Low 12.0-15.0 [facility] Comment on above: Performed By: #### L 506.0400, L100.0100, L501.9520, L501.5200, L501.2300, L500.4050 ####[facility] [address] [place], [address] IG% 1.100 High 0.0-0.9 [facility] Comment on above: Result Comment: IG% - Immature Granulocytes (promyelocytes, myelocytes andmetamyelocytes) > 1% indicates that a LEFT SHIFT is Present. Performed By: #### L 506.0400, L100.0100, L501.9520, L501.5200, L501.2300, L500.4050 ####[facility] [address] [place], [address] Lymphocytes/100 WBC (Bld) 11.7 % Low 19-41 [facility] Comment on above: Performed By: #### L 506.0400, L100.0100, L501.9520, L501.5200, L501.2300, L500.4050 ####[facility] [address] [place], [address] MCH (RBC) [Entitic mass] 29.3 pg Normal 27.0-32.0 [facility] Comment on above: Performed By: #### L 506.0400, L100.0100, L501.9520, L501.5200, L501.2300, L500.4050 ####[facility] [address] [place], [address] MCHC (RBC) [Mass/Vol] 32.6 g/dL Normal 32-36 [facility] Comment on above: Performed By: #### L 506.0400, L100.0100, L501.9520, L501.5200, L501.2300, L500.4050 ####[facility] [address] [place], [address] MCV (RBC) [Entitic vol] 89.9 fL Normal 81-99 [facility] Comment on above: Performed By: #### L 506.0400, L100.0100, L501.9520, L501.5200, L501.2300, L500.4050 ####[facility] [address] [place], [address] Monocytes/100 WBC (Bld) 20.0 % High 0-10 [facility] Comment on above: Performed By: #### L 506.0400, L100.0100, L501.9520, L501.5200, L501.2300, L500.4050 ####[facility] [address] [place], [address] Neutrophils/100 WBC (Bld) 66.2 % Normal 47-70 [facility] Comment on above: Performed By: #### L 506.0400, L100.0100, L501.9520, L501.5200, L501.2300, L500.4050 ####[facility] [address] [place], [address] Nucleated RBC (Bld) [#/Vol] 0 10*3/uL Normal 0-5 [facility] Comment on above: Performed By: #### L 506.0400, L100.0100, L501.9520, L501.5200, L501.2300, L500.4050 ####[facility] [address] [place], [address] Platelet mean volume (Bld) [Entitic vol] 9.9 fL Normal 6.2-12.0 [facility] Comment on above: Performed By: #### L 506.0400, L100.0100, L501.9520, L501.5200, L501.2300, L500.4050 ####[facility] [address] [place], [address] Platelets (Bld) [#/Vol] 483 10*3/uL High 150-450 [facility] Comment on above: Performed By: #### L 506.0400, L100.0100, L501.9520, L501.5200, L501.2300, L500.4050 ####[facility] [address] [place], [address] RBC (Bld) [#/Vol] 3.68 10*6/uL Low 4.2-5.4 [facility] Comment on above: Performed By: #### L 506.0400, L100.0100, L501.9520, L501.5200, L501.2300, L500.4050 ####[facility] [address] [place], [address] RDW SD 59.6 fl High 35.1-43.9 [facility] Comment on above: Performed By: #### L 506.0400, L100.0100, L501.9520, L501.5200, L501.2300, L500.4050 ####[facility] [address] [place], [address] WBC (Bld) [#/Vol] 9.0 10*3/uL Normal 4.4-11.0 [facility] Comment on above: Performed By: #### L 506.0400, L100.0100, L501.9520, L501.5200, L501.2300, L500.4050 ####[facility] [address] [place], [address] Carbon dioxide, total [Moles /volume] in Central venous bloodOrdered By: Sherice Fernandez on 01-06-2025 CO2 [Moles/Vol] 24.3 mmol/L 21.0-32.0 [facility] Chloride assayOrdered By: Melva Fernandez on 01-06-2025 Chloride [Moles/Vol] 105 mmol/L 98-108 [facility] Comprehensive Metabolic Prof ilon 01-06-2025 Albumin [Mass/Vol] 3.2 g/dL Low 3.4-4.8 [facility] Comment on above: Performed By: #### L 506.0400, L100.0100, L501.9520, L501.5200, L501.2300, L500.4050 ####[facility] [address] [place], [address] Albumin/Globulin [Mass ratio] 0.8 {ratio} Low 0.9-2.4 [facility] Comment on above: Performed By: #### L 506.0400, L100.0100, L501.9520, L501.5200, L501.2300, L500.4050 ####[facility] [address] [place], [address] ALK PHOS 269 U/L High 35-104 [facility] Comment on above: Performed By: #### L 506.0400, L100.0100, L501.9520, L501.5200, L501.2300, L500.4050 ####[facility] [address] [place], [address] ALT [Catalytic activity/Vol] 28 U/L Normal <=34 [facility] Comment on above: Performed By: #### L 506.0400, L100.0100, L501.9520, L501.5200, L501.2300, L500.4050 ####[facility] [address] [place], [address] AST [Catalytic activity/Vol] 77 U/L High <=31 [facility] Comment on above: Performed By: #### L 506.0400, L100.0100, L501.9520, L501.5200, L501.2300, L500.4050 ####[facility] [address] [place], [address] Bilirubin [Mass/Vol] 0.62 mg/dL Normal 0.00-1.30 [facility] Comment on above: Performed By: #### L 506.0400, L100.0100, L501.9520, L501.5200, L501.2300, L500.4050 ####[facility] [address] [place], [address] BUN/CRE 7.9 RATIO Low 10-20 [facility] Comment on above: Performed By: #### L 506.0400, L100.0100, L501.9520, L501.5200, L501.2300, L500.4050 ####[facility] [address] [place], [address] Calcium [Mass/Vol] 8.8 mg/dL Normal 7.6-11.0 [facility] Comment on above: Performed By: #### L 506.0400, L100.0100, L501.9520, L501.5200, L501.2300, L500.4050 ####[facility] [address] [place], [address] Chloride [Moles/Vol] 105 mmol/L Normal 98-108 [facility] Comment on above: Performed By: #### L 506.0400, L100.0100, L501.9520, L501.5200, L501.2300, L500.4050 ####[facility] [address] [place], [address] CO2 [Moles/Vol] 24.3 mmol/L Normal 21.0-32.0 [facility] Comment on above: Performed By: #### L 506.0400, L100.0100, L501.9520, L501.5200, L501.2300, L500.4050 ####[facility] [address] [place], [address] Creatinine [Mass/Vol] 0.77 mg/dL Normal 0.70-1.20 [facility] Comment on above: Performed By: #### L 506.0400, L100.0100, L501.9520, L501.5200, L501.2300, L500.4050 ####[facility] [address] [place], [address] ECRCL 54.13 ml/min Normal 50-250 [facility] Comment on above: Performed By: #### L 506.0400, L100.0100, L501.9520, L501.5200, L501.2300, L500.4050 ####[facility] [address] [place], [address] GAP 13 Normal 5-15 [facility] Comment on above: Performed By: #### L 506.0400, L100.0100, L501.9520, L501.5200, L501.2300, L500.4050 ####[facility] [address] [place], [address] GFR/1.73 sq M.predicted among non-blacks MDRD (S/P/Bld) [Vol rate/Area] 83 mL/min/{1.73_m2} Normal >60 [facility] Comment on above: Result Comment: mL/m in/1.73m2 CKD-EPI Creatinine Equation (2020) Performed By: #### L 506.0400, L100.0100, L501.9520, L501.5200, L501.2300, L500.4050 ####[facility] [address] [place], [address] Globulin (S) [Mass/Vol] 4.0 g/dL Normal 2.2-4.2 [facility] Comment on above: Performed By: #### L 506.0400, L100.0100, L501.9520, L501.5200, L501.2300, L500.4050 ####[facility] [address] [place], [address] Glucose [Mass/Vol] 126 mg/dL High 70-99 [facility] Comment on above: Performed By: #### L 506.0400, L100.0100, L501.9520, L501.5200, L501.2300, L500.4050 ####[facility] [address] [place], [address] Potassium [Moles/Vol] 4.4 mmol/L Normal 3.3-5.1 [facility] Comment on above: Performed By: #### L 506.0400, L100.0100, L501.9520, L501.5200, L501.2300, L500.4050 ####[facility] [address] [place], [address] Sodium [Moles/Vol] 142 mmol/L Normal 133-145 [facility] Comment on above: Performed By: #### L 506.0400, L100.0100, L501.9520, L501.5200, L501.2300, L500.4050 ####[facility] [address] [place], [address] T PROT 7.2 g/dL Normal 5.9-8.4 [facility] Comment on above: Performed By: #### L 506.0400, L100.0100, L501.9520, L501.5200, L501.2300, L500.4050 ####[facility] [address] [place], [address] Urea nitrogen [Mass/Vol] 6 mg/dL Normal 4-19 [facility] Comment on above: Performed By: #### L 506.0400, L100.0100, L501.9520, L501.5200, L501.2300, L500.4050 ####[facility] [address] [place], [address] Eosinophil percentageOrdered By: Sherice Fernandez on 01-06-2025 Eosinophils/100 WBC (Bld) 0.3 % 0-5 [facility] Erythrocyte distribution wid th (RBC) [Ratio]Ordered By: Sherice Fernandez on 01-06-2025 Erythrocyte distribution width (RBC) [Entitic vol] 59.6 fL High 35.1-43.9 [facility] Erythrocyte distribution wid th ratioOrdered By: Sherice Fernandez on 01-06-2025 Erythrocyte distribution width (RBC) [Ratio] 18.2 % High 11.6-14.6 [facility] Estimation of creatinine lubna aranceOrdered By: Sherice Fernandez on 01-06-2025 Estimated Creatinine Clearance Calc 54.13 ml/min 50-250 [facility] GFR/1.73 sq M.predicted mary g non-blacks MDRD (S/P/Bld) [Vol rate/Area]Ordered By: Sherice Fernandez on 01-06-2025 Estimated GFR (MDRD) Non-Af Amer 83 >60 [facility] Comment on above: mL/min/1.73m2 CKD-EP I Creatinine Equation (2020) Hematocrit Auto (Bld) [Volum e fraction]Ordered By: Sherice Fernandez on 01-06-2025 Hematocrit (Bld) [Volume fraction] 33.1 % Low 37-47 [facility] Hemoglobin measurementOrdere d By: Sherice Fernandez on 01-06-2025 Hemoglobin (Bld) [Mass/Vol] 10.8 g/dL Low 12.0-15.0 [facility] Immature granulocytes/100 WB C Auto (Bld)Ordered By: Sherice Fernandez on 01-06-2025 Immature granulocytes/100 WBC (Bld) 1.100 % High 0.0-0.9 [facility] Comment on above: IG% - Immature Granu locytes (promyelocytes, myelocytes and metamyelocytes) > 1% indicates that a LEFT SHIFT is Present. Laboratory - Chemistry and C hemistry - challengeOrdered By: Sherice Fernandez on 01-06-2025 AST [Catalytic activity/Vol] 77 U/L High <32 [facility] Lymphocytes Auto (Unsp spec) [#/Vol]Ordered By: [facility] on 01-06-2025 Lymphocytes (Bld) [#/Vol] 1.05 10*3/uL 0.83-4.51 [facility] Lymphocytes/100 WBC Auto (Un sp spec)Ordered By: Sherice Fernandez on 01-06-2025 Lymphocytes/100 WBC (Bld) 11.7 % Low 19-41 [facility] MCV (mean corpuscular volume ) determinationOrdered By: Sherice Fernandez on 01-06-2025 MCV (RBC) [Entitic vol] 89.9 fL 81-99 [facility] Magnesiumon 01-06-2025 Magnesium [Mass/Vol] 1.5 mg/dL Normal 1.5-2.2 [facility] Comment on above: Performed By: #### L 506.0400, L100.0100, L501.9520, L501.5200, L501.2300, L500.4050 ####[facility] [address] [place], [place], [address] Magnesium (Unsp spec) [Mass/ Vol]Ordered By: Sherice Fernandez on 01-06-2025 Magnesium [Mass/Vol] 1.5 mg/dL 1.5-2.2 [facility] Manual differential comment Scott (Bld) [Interp]Ordered By: Sherice Fernandez on 01-06-2025 Differential Comment SCANNED [facility] Comment on above: MONOCYTOSIS NOTED Mean corpuscular hemoglobin (MCH) determinationOrdered By: Sherice Fernandez on 01-06-2025 MCH (RBC) [Entitic mass] 29.3 pg 27.0-32.0 [facility] Mean corpuscular hemoglobin concentration (MCHC) determinationOrdered By: Sherice Fernandez on 01-06-2025 MCHC (RBC) [Mass/Vol] 32.6 g/dL 32-36 [facility] Mean platelet volume determi nationOrdered By: Sherice Fernandez on 01-06-2025 Platelet mean volume (Bld) [Entitic vol] 9.9 fL 6.2-12.0 [facility] Monocyte percentageOrdered B y: Sherice Fernandez on 01-06-2025 Monocytes/100 WBC (Bld) 20.0 % High 0-10 [facility] Neutrophil percentageOrdered By: Sherice Fernandez on 01-06-2025 Neutrophils/100 WBC (Bld) 66.2 % 47-70 [facility] Nucleated red blood cell per centageOrdered By: Sherice Fernandez on 01-06-2025 Nucleated RBC/100 WBC (Bld) [Ratio] 0 % 0-5 [facility] Oncology Visit Reporton 12-17 Oncology Visit Report Normal [facility] Phosphoruson 01-06-2025 Phosphate [Mass/Vol] 3.9 mg/dL Normal 2.7-4.5 [facility] Comment on above: Performed By: #### L 506.0400, L100.0100, L501.9520, L501.5200, L501.2300, L500.4050 ####[facility] [address] [place], [address] Platelet countOrdered By: Melva Fernandez on 01-06-2025 Platelets (Bld) [#/Vol] 483 10*3/uL High 150-450 [facility] [facility] Potassium (Unsp spec) [Mass/ Vol]Ordered By: Sherice Fernandez on 01-06-2025 Potassium [Moles/Vol] 4.4 mmol/L 3.3-5.1 [facility] RBC Auto (Bld) [#/Vol]Ordere d By: Sherice Fernandez on 01-06-2025 RBC (Bld) [#/Vol] 3.68 10*6/uL Low 4.2-5.4 [facility] Serum creatinine measurement (mass/volume)Ordered By: Sherice Fernandez on 01-06-2025 Creatinine [Mass/Vol] 0.77 mg/dL 0.70-1.20 [facility] Serum globulin measurementOr dered By: Sherice Fernandez on 01-06-2025 Globulin (S) [Mass/Vol] 4.0 g/dL 2.2-4.2 [facility] Serum glucose measurement (m ass/volume)Ordered By: Sherice Fernandez on 01-06-2025 Glucose [Mass/Vol] 126 mg/dL High 70-99 [facility] Serum or plasma alanine encarnacion otransferase (ALT) measurementOrdered By: Sherice Fernandez on 01-06-2025 ALT [Catalytic activity/Vol] 28 U/L <35 [facility] Serum or plasma albumin jayro urement (mass/volume)Ordered By: Sherice Fernandez on 01-06-2025 Albumin [Mass/Vol] 3.2 g/dL Low 3.4-4.8 [facility] Serum or plasma albumin/glob ulin mass ratioOrdered By: Sherice Fernandez on 01-06-2025 Albumin/Globulin [Mass ratio] 0.8 {ratio} Low 0.9-2.4 [facility] Serum or plasma alkaline lukas sphatase measurementOrdered By: Sherice Fernandez on 01-06-2025 ALP [Catalytic activity/Vol] 269 U/L High 35-104 [facility] Serum or plasma calcium jayro urement (mass/volume)Ordered By: Sherice Fernandez on 01-06-2025 Calcium [Mass/Vol] 8.8 mg/dL 7.6-11.0 [facility] Serum or plasma urea nitroge n measurement (mass/volume)Ordered By: Sherice Fernandez on 01-06-2025 Urea nitrogen [Mass/Vol] 6 mg/dL 4-19 [facility] Serum phosphorus measurement Ordered By: Sherice Fernandez on 01-06-2025 Phosphorus Level 3.9 mg/dL 2.7-4.5 [facility] Sodium levelOrdered By: Carmella Fernandez on 01-06-2025 Sodium [Moles/Vol] 142 mmol/L 133-145 [facility] T4 Free Directon 01-06-2025 T4 FREE DIRECT 1.20 ng/dL Normal 0.76-1.46 [facility] Comment on above: Performed By: #### L 506.0400, L100.0100, L501.9520, L501.5200, L501.2300, L500.4050 ####[facility] [address] [place], [address] T4 freeOrdered By: Sherice burciaga on 01-06-2025 Free T4 [Mass/Vol] 1.20 ng/dL 0.76-1.46 [facility] TSH DL <= 0.005 mIU/L QnOrde red By: Sherice Fernandez on 01-06-2025 Thyroid Stimulating Hormone (TSH) 1.820 uIU/mL 0.300-4.200 [facility] Thyroid Stim Hormone (TSH)on 01-06-2025 TSH 1.820 uIU/mL Normal 0.300-4.200 [facility] Comment on above: Performed By: #### L 506.0400, L100.0100, L501.9520, L501.5200, L501.2300, L500.4050 ####[facility] [address] [place], [address] Total proteinOrdered By: Nain canseco Jim on 01-06-2025 Protein [Mass/Vol] 7.2 g/dL 5.9-8.4 [facility] White blood cell (WBC) count Ordered By: Sherice Jim on 01-06-2025 WBC (Bld) [#/Vol] 9.0 10*3/uL 4.4-11.0 [facility] CBC W/Diff, Automatedon 12-16 PATH REV N/A Normal [facility] Comment on above: Result Comment: AMENDED REPORT 12/30/24 1406 PATH REV previously reported as: January anastasia Performed By: #### L 500.4050, L100.0100 ####[facility] [address] [place], [place], [id number] Blood band neutrophil count as percentage of total leukocytesOrdered By: Sharda Bronson on 12-29-2024 Band form neutrophils/100 WBC (Bld) 11 % High 0-5 [facility] Blood lymphocytes/100 leukoc ytesOrdered By: Sharda Audie on 12-29-2024 Lymphocytes/100 WBC (Bld) 12 % Low 19-41 [facility] Blood metamyelocytes/100 isa kocytesOrdered By: Sharda Audie on 12-29-2024 Metamyelocytes/100 WBC (Bld) 3 % High 0-1 [facility] Blood monocytes/100 leukocyt esOrdered By: Sharda Audie on 12-29-2024 Monocytes/100 WBC (Bld) 16 % High 0-10 [facility] Blood segmented neutrophils/ 100 leukocytesOrdered By: Sharda Audie on 12-29-2024 Segmented neutrophils/100 WBC (Bld) 57 % 47-70 [facility] Cells counted Molgen (Bld/Ti ss) [#]Ordered By: Sharda Bronson on 12-29-2024 Differential Total Cells Counted 100 MANUAL DIFF [facility] Comprehensive Metabolic Prof ilon 12-29-2024 Albumin [Mass/Vol] 3.3 g/dL Low 3.4-4.8 [facility] Comment on above: Performed By: #### L 500.4050, L100.0100 ####[facility] [address] [place], [address] Albumin/Globulin [Mass ratio] 1.0 {ratio} Normal 0.9-2.4 [facility] Comment on above: Performed By: #### L 500.4050, L100.0100 ####[facility] [address] [place], [address] ALK PHOS 418 U/L High 35-104 [facility] Comment on above: Performed By: #### L 500.4050, L100.0100 ####[facility] [address] [place], [address] ALT [Catalytic activity/Vol] 44 U/L High <=34 [facility] Comment on above: Performed By: #### L 500.4050, L100.0100 ####[facility] [address] [place], [address] AST [Catalytic activity/Vol] 98 U/L High <=31 [facility] Comment on above: Performed By: #### L 500.4050, L100.0100 ####[facility] [address] [place], [address] Bilirubin [Mass/Vol] 0.65 mg/dL Normal 0.00-1.30 [facility] Comment on above: Performed By: #### L 500.4050, L100.0100 ####[facility] [address] [place], [address] BUN/CRE 11.3 RATIO Normal 10-20 [facility] Comment on above: Performed By: #### L 500.4050, L100.0100 ####[facility] [address] [place], [address] Calcium [Mass/Vol] 8.9 mg/dL Normal 7.6-11.0 [facility] Comment on above: Performed By: #### L 500.4050, L100.0100 ####[facility] [address] [place], [address] Chloride [Moles/Vol] 101 mmol/L Normal 98-108 [facility] Comment on above: Performed By: #### L 500.4050, L100.0100 ####[facility] [address] [place], [address] CO2 [Moles/Vol] 24.3 mmol/L Normal 21.0-32.0 [facility] Comment on above: Performed By: #### L 500.4050, L100.0100 ####[facility] [address] [place], [address] Creatinine [Mass/Vol] 0.75 mg/dL Normal 0.70-1.20 [facility] Comment on above: Performed By: #### L 500.4050, L100.0100 ####[facility] [address] [place], [address] ECRCL 59.65 ml/min Normal 50-250 [facility] Comment on above: Performed By: #### L 500.4050, L100.0100 ####[facility] [address] [place], [address] GAP 12 Normal 5-15 [facility] Comment on above: Performed By: #### L 500.4050, L100.0100 ####[facility] [address] [place], [address] GFR/1.73 sq M.predicted among non-blacks MDRD (S/P/Bld) [Vol rate/Area] 86 mL/min/{1.73_m2} Normal >60 [facility] Comment on above: Result Comment: mL/m in/1.73m2 CKD-EPI Creatinine Equation (2020) Performed By: #### L 500.4050, L100.0100 ####[facility] [address] [place], [address] Globulin (S) [Mass/Vol] 3.2 g/dL Normal 2.2-4.2 [facility] Comment on above: Performed By: #### L 500.4050, L100.0100 ####[facility] [address] [place], [address] Glucose [Mass/Vol] 168 mg/dL High 70-99 [facility] Comment on above: Performed By: #### L 500.4050, L100.0100 ####[facility] [address] [place], [address] Potassium [Moles/Vol] 4.2 mmol/L Normal 3.3-5.1 [facility] Comment on above: Performed By: #### L 500.4050, L100.0100 ####[facility] [address] [place], [address] Sodium [Moles/Vol] 137 mmol/L Normal 133-145 [facility] Comment on above: Performed By: #### L 500.4050, L100.0100 ####[facility] [address] [place], [address] T PROT 6.5 g/dL Normal 5.9-8.4 [facility] Comment on above: Performed By: #### L 500.4050, L100.0100 ####[facility] [address] [place], [address] Urea nitrogen [Mass/Vol] 8 mg/dL Normal - [facility] Comment on above: Performed By: #### L 500.4050, L100.0100 ####[facility] [address] [place], [place], [address] Myelocyte %Ordered By: Sharda Bronson on 12-29-2024 Myelocytes/100 WBC (Bld) 1 % High 0-0 [facility] Oncology Visit Reporton 12-16 Oncology Visit Report Normal [facility] Pathologist review Scott (Unsp spec) [Interp]Ordered By: Sharda Bronson on 12-29-2024 Differential Pathologist's Review N/A [facility] Comment on above: Previous reported re sult: Marah oconnor Edited by: HARDIK on 12/30/24:1406 AMENDED REPORT 12/30/24 140 PATH REV previously reported as: Marah oconnor Platelet estimateOrdered By: Sharda Bronson on 12-29-2024 Platelets LM Ql (Bld) [facility] Platelets LM Ql (Bld)Ordered By: Sharda Bronson on 12-29-2024 Platelet Estimate MOD AUG [facility] Review by pathologistOrdered By: Sharda Bronson on 12-29-2024 Pathologist review Scott (Unsp spec) [Interp] N/A [facility] Comment on above: Previous reported re sult: Marah oconnor Edited by: HARDIK on 12/30/24:1406 AMENDED REPORT 12/30/24 1406 PATH REV previously reported as: Marah oconnor Segmented neutrophils/100 WB C (Bld)Ordered By: Sharda Bronson on 12-29-2024 Neutrophils/100 WBC (Bld) 57 % 47-70 [facility] Total cell countOrdered By: Sharda Bronson on 12-29-2024 Cells counted Molgen (Bld/Tiss) [#] 100 MANUAL DIFF [facility] Surgery Visit Reporton 12-22 Surgery Visit Report Normal [facility] CBC W/Diff, Automatedon PATH REV N/A Normal [facility] Comment on above: Result Comment: AMENDED REPORT 12/21/24 1428 PATH REV previously reported as: January Performed By: #### L 501.2300, L500.4050, L501.9520, L501.5200, L506.0400, L100.0100 ####[facility] [address] [place], [address] CBC W/Diff, Automatedon 04-0 Absolute Neut Normal 2.0-7.7 [facility] Comment on above: Result Comment: NO S PECIMENS COLLECTED. Performed By: #### L 500.4050, L100.0100 ####[facility] [address] [place], [address] HCT Normal 37-47 [facility] Comment on above: Result Comment: NO S PECIMENS COLLECTED. Performed By: #### L 500.4050, L100.0100 ####[facility] [address] [place], [address] HGB Normal 12.0-15.0 [facility] Comment on above: Result Comment: NO S PECIMENS COLLECTED. Performed By: #### L 500.4050, L100.0100 ####[facility] [address] [place], [address] MCH Normal 27.0-32.0 [facility] Comment on above: Result Comment: NO S PECIMENS COLLECTED. Performed By: #### L 500.4050, L100.0100 ####[facility] [address] [place], [address] MCHC Normal 32-36 [facility] Comment on above: Result Comment: NO S PECIMENS COLLECTED. Performed By: #### L 500.4050, L100.0100 ####[facility] [address] [place], [address] MCV Normal 81-99 [facility] Comment on above: Result Comment: NO S PECIMENS COLLECTED. Performed By: #### L 500.4050, L100.0100 ####[facility] [address] [place], [address] NEUT% Normal 47-70 [facility] Comment on above: Result Comment: NO S PECIMENS COLLECTED. Performed By: #### L 500.4050, L100.0100 ####[facility] [address] [place], [address] PLT Normal 150-450 [facility] Comment on above: Result Comment: NO S PECIMENS COLLECTED. Performed By: #### L 500.4050, L100.0100 ####[facility] [address] [place], [address] RBC Normal 4.2-5.4 [facility] Comment on above: Result Comment: NO S PECIMENS COLLECTED. Performed By: #### L 500.4050, L100.0100 ####[facility] [address] [place], [address] RDW CV Normal 11.6-14.6 [facility] Comment on above: Result Comment: NO S PECIMENS COLLECTED. Performed By: #### L 500.4050, L100.0100 ####[facility] [address] [place], [address] RDW SD Normal 35.1-43.9 [facility] Comment on above: Result Comment: NO S PECIMENS COLLECTED. Performed By: #### L 500.4050, L100.0100 ####[facility] [address] [place], [address] WBC Normal 4.4-11.0 [facility] Comment on above: Result Comment: NO S PECIMENS COLLECTED. Performed By: #### L 500.4050, L100.0100 ####[facility] [address] [place], [address] Comprehensive Metabolic Prof ilon 12-17-2024 ALB Normal 3.4-4.8 [facility] Comment on above: Result Comment: NO S PECIMENS COLLECTED Performed By: #### L 500.4050, L100.0100 ####[facility] [address] [place], [address] ALK PHOS Normal 35-104 [facility] Comment on above: Result Comment: NO S PECIMENS COLLECTED Performed By: #### L 500.4050, L100.0100 ####[facility] [address] [place], [address] ALT Normal <=34 [facility] Comment on above: Result Comment: NO S PECIMENS COLLECTED Performed By: #### L 500.4050, L100.0100 ####[facility] [address] [place], [address] AST Normal <=31 [facility] Comment on above: Result Comment: NO S PECIMENS COLLECTED Performed By: #### L 500.4050, L100.0100 ####[facility] [address] [place], [address] BUN Normal 4-19 [facility] Comment on above: Result Comment: NO S PECIMENS COLLECTED Performed By: #### L 500.4050, L100.0100 ####[facility] [address] [place], [address] BUN/CRE Normal 10-20 [facility] Comment on above: Result Comment: NO S PECIMENS COLLECTED Performed By: #### L 500.4050, L100.0100 ####[facility] [address] [place], [address] Calcium Normal 7.6-11.0 [facility] Comment on above: Result Comment: NO S PECIMENS COLLECTED Performed By: #### L 500.4050, L100.0100 ####[facility] [address] [place], [address] CL Normal 98-108 [facility] Comment on above: Result Comment: NO S PECIMENS COLLECTED Performed By: #### L 500.4050, L100.0100 ####[facility] [address] [place], [address] CO2 Normal 21.0-32.0 [facility] Comment on above: Result Comment: NO S PECIMENS COLLECTED Performed By: #### L 500.4050, L100.0100 ####[facility] [address] [place], [address] CREAT,SERUM Normal 0.70-1.20 [facility] Comment on above: Result Comment: NO S PECIMENS COLLECTED Performed By: #### L 500.4050, L100.0100 ####[facility] [address] [place], [address] eGFR Normal >60 [facility] Comment on above: Result Comment: NO S PECIMENS COLLECTED Performed By: #### L 500.4050, L100.0100 ####[facility] [address] [place], [address] GAP Normal 5-15 [facility] Comment on above: Result Comment: NO S PECIMENS COLLECTED Performed By: #### L 500.4050, L100.0100 ####[facility] [address] [place], [address] GLU Normal 70-99 [facility] Comment on above: Result Comment: NO S PECIMENS COLLECTED Performed By: #### L 500.4050, L100.0100 ####[facility] [address] [place], [address] Potassium Normal 3.3-5.1 [facility] Comment on above: Result Comment: NO S PECIMENS COLLECTED Performed By: #### L 500.4050, L100.0100 ####[facility] [address] [place], [address] T BILI Normal 0.00-1.30 [facility] Comment on above: Result Comment: NO S PECIMENS COLLECTED Performed By: #### L 500.4050, L100.0100 ####[facility] [address] [place], [address] T PROT Normal 5.9-8.4 [facility] Comment on above: Result Comment: NO S PECIMENS COLLECTED Performed By: #### L 500.4050, L100.0100 ####[facility] [address] [place], [address] Comprehensive Metabolic Profil Normal 133-145 [facility] Comment on above: Result Comment: NO S PECIMENS COLLECTED Performed By: #### L 500.4050, L100.0100 ####[facility] [address] [place], [address] Comprehensive Metabolic Prof ilon 12-16-2024 Albumin [Mass/Vol] 3.2 g/dL Low 3.4-4.8 [facility] Comment on above: Performed By: #### L 501.2300, L500.4050, L501.9520, L501.5200, L506.0400, L100.0100 ####[facility] [address] [place], [address] Albumin/Globulin [Mass ratio] 1.0 {ratio} Normal 0.9-2.4 [facility] Comment on above: Performed By: #### L 501.2300, L500.4050, L501.9520, L501.5200, L506.0400, L100.0100 ####[facility] [address] [place], [address] ALK PHOS 590 U/L High 35-104 [facility] Comment on above: Performed By: #### L 501.2300, L500.4050, L501.9520, L501.5200, L506.0400, L100.0100 ####[facility] [address] [place], [address] ALT [Catalytic activity/Vol] 47 U/L High <=34 [facility] Comment on above: Performed By: #### L 501.2300, L500.4050, L501.9520, L501.5200, L506.0400, L100.0100 ####[facility] [address] [place], [address] AST [Catalytic activity/Vol] 210 U/L High <=31 [facility] Comment on above: Performed By: #### L 501.2300, L500.4050, L501.9520, L501.5200, L506.0400, L100.0100 ####[facility] [address] [place], [address] Bilirubin [Mass/Vol] 1.24 mg/dL Normal 0.00-1.30 [facility] Comment on above: Performed By: #### L 501.2300, L500.4050, L501.9520, L501.5200, L506.0400, L100.0100 ####[facility] [address] [place], [address] BUN/CRE 7.8 RATIO Low 10-20 [facility] Comment on above: Performed By: #### L 501.2300, L500.4050, L501.9520, L501.5200, L506.0400, L100.0100 ####[facility] [address] [place], [address] Calcium [Mass/Vol] 8.8 mg/dL Normal 7.6-11.0 [facility] Comment on above: Performed By: #### L 501.2300, L500.4050, L501.9520, L501.5200, L506.0400, L100.0100 ####[facility] [address] [place], [address] Chloride [Moles/Vol] 104 mmol/L Normal 98-108 [facility] Comment on above: Performed By: #### L 501.2300, L500.4050, L501.9520, L501.5200, L506.0400, L100.0100 ####[facility] [address] [place], [address] CO2 [Moles/Vol] 21.3 mmol/L Normal 21.0-32.0 [facility] Comment on above: Performed By: #### L 501.2300, L500.4050, L501.9520, L501.5200, L506.0400, L100.0100 ####[facility] [address] [place], [address] Creatinine [Mass/Vol] 0.79 mg/dL Normal 0.70-1.20 [facility] Comment on above: Performed By: #### L 501.2300, L500.4050, L501.9520, L501.5200, L506.0400, L100.0100 ####[facility] [address] [place], [address] ECRCL 60.80 ml/min Normal 50-250 [facility] Comment on above: Performed By: #### L 501.2300, L500.4050, L501.9520, L501.5200, L506.0400, L100.0100 ####[facility] [address] [place], [address] GAP 14 Normal 5-15 [facility] Comment on above: Performed By: #### L 501.2300, L500.4050, L501.9520, L501.5200, L506.0400, L100.0100 ####[facility] [address] [place], [address] GFR/1.73 sq M.predicted among non-blacks MDRD (S/P/Bld) [Vol rate/Area] 81 mL/min/{1.73_m2} Normal >60 [facility] Comment on above: Result Comment: mL/m in/1.73m2 CKD-EPI Creatinine Equation (2020) Performed By: #### L 501.2300, L500.4050, L501.9520, L501.5200, L506.0400, L100.0100 ####[facility] [address] [place], [address] Globulin (S) [Mass/Vol] 3.2 g/dL Normal 2.2-4.2 [facility] Comment on above: Performed By: #### L 501.2300, L500.4050, L501.9520, L501.5200, L506.0400, L100.0100 ####[facility] [address] [place], [address] Glucose [Mass/Vol] 162 mg/dL High 70-99 [facility] Comment on above: Performed By: #### L 501.2300, L500.4050, L501.9520, L501.5200, L506.0400, L100.0100 ####[facility] [address] [place], [address] Potassium [Moles/Vol] 3.9 mmol/L Normal 3.3-5.1 [facility] Comment on above: Performed By: #### L 501.2300, L500.4050, L501.9520, L501.5200, L506.0400, L100.0100 ####[facility] [address] [place], [address] Sodium [Moles/Vol] 139 mmol/L Normal 133-145 [facility] Comment on above: Performed By: #### L 501.2300, L500.4050, L501.9520, L501.5200, L506.0400, L100.0100 ####[facility] [address] [place], [address] T PROT 6.4 g/dL Normal 5.9-8.4 [facility] Comment on above: Performed By: #### L 501.2300, L500.4050, L501.9520, L501.5200, L506.0400, L100.0100 ####[facility] [address] [place], [address] Urea nitrogen [Mass/Vol] 6 mg/dL Normal 4-19 [facility] Comment on above: Performed By: #### L 501.2300, L500.4050, L501.9520, L501.5200, L506.0400, L100.0100 ####[facility] [address] [place], [address] Magnesiumon 12-16-2024 Magnesium [Mass/Vol] 1.5 mg/dL Normal 1.5-2.2 [facility] Comment on above: Performed By: #### L 501.2300, L500.4050, L501.9520, L501.5200, L506.0400, L100.0100 ####[facility] [address] [place], [address] Oncology Visit Reporton 0 Oncology Visit Report Normal [facility] Phosphoruson 12-16-2024 Phosphate [Mass/Vol] 3.1 mg/dL Normal 2.7-4.5 [facility] Comment on above: Performed By: #### L 501.2300, L500.4050, L501.9520, L501.5200, L506.0400, L100.0100 ####[facility] [address] [place], [address] T4 Free Directon 12-16-2024 T4 FREE DIRECT 1.40 ng/dL Normal 0.76-1.46 [facility] Comment on above: Performed By: #### L 501.2300, L500.4050, L501.9520, L501.5200, L506.0400, L100.0100 ####[facility] [address] [place], [address] Thyroid Stim Hormone (TSH)on 12-16-2024 TSH 5.070 uIU/mL High 0.300-4.200 [facility] Comment on above: Performed By: #### L 501.2300, L500.4050, L501.9520, L501.5200, L506.0400, L100.0100 ####[facility] [address] [place], [address] Chest 1 View (Portable)on Chest 1 View (Portable) Normal [facility] Discharge Instructionon 11-16 Discharge Instruction Normal [facility] MR/POSTOP.ANEon 12-12-2024 MR/POSTOP.ANE Normal [facility] MR/[id number] 12-12-2024 MR/POSTOPAN2 Normal [facility] Operative Reporton Operative Report Normal [facility] MR/PAT.ANEon 12-11-2024 MR/PAT.ANE Normal [facility] Surgery Visit Reporton 12-10 Surgery Visit Report Normal [facility] Absolute neutrophil countOrd ered By: Sherice Fernandez on 12-09-2024 Neutrophils (Bld) [#/Vol] 6.7 10*3/uL 2.0-7.7 [facility] Anion gap in Serum or Plasma Ordered By: Sherice Fernandez on 12-09-2024 Anion gap [Moles/Vol] 14 mmol/L 5-15 [facility] BUN/creatinine ratioOrdered By: Sherice Fernandez on 12-09-2024 Urea nitrogen/Creatinine [Mass ratio] 7.9 mg/mg Low 10-20 [facility] Basophil percentageOrdered B y: Sherice Smithpiper on 12-09-2024 Basophils/100 WBC (Bld) 0.9 % 0-1 [facility] Bilirubin, totalOrdered By: Sherice Jim on 12-09-2024 Bilirubin [Mass/Vol] 1.84 mg/dL High 0.00-1.30 [facility] CBC W/Diff, Automatedon 11-16 PLT EST MOD DEC Normal ADEQ [facility] Comment on above: Performed By: #### L 501.2300, L100.0100, L501.5200 ####[facility] [address] [place], [address] SMEAR COMMENT SCANNED Normal [facility] Comment on above: Performed By: #### L 501.2300, L100.0100, L501.5200 ####[facility] [address] [place], [address] Carbon dioxide, total [Moles /volume] in Central venous bloodOrdered By: Sherice Jim on 12-09-2024 CO2 [Moles/Vol] 22.3 mmol/L 21.0-32.0 [facility] Chloride assayOrdered By: Melva parsons Jim on 12-09-2024 Chloride [Moles/Vol] 102 mmol/L 98-108 [facility] Comprehensive Metabolic Prof ilon 12-09-2024 Albumin [Mass/Vol] 3.3 g/dL Low 3.4-4.8 [facility] Comment on above: Performed By: #### L 500.4050 ####[facility] [address] [place], [address] Albumin/Globulin [Mass ratio] 1.2 {ratio} Normal 0.9-2.4 [facility] Comment on above: Performed By: #### L 500.4050 ####[facility] [address] [place], [address] ALK PHOS 685 U/L High 35-104 [facility] Comment on above: Performed By: #### L 500.4050 ####[facility] [address] [place], [address] ALT [Catalytic activity/Vol] 88 U/L High <=34 [facility] Comment on above: Performed By: #### L 500.4050 ####[facility] [address] [place], [address] AST [Catalytic activity/Vol] 248 U/L High <=31 [facility] Comment on above: Performed By: #### L 500.4050 ####[facility] [address] [place], [address] Bilirubin [Mass/Vol] 1.84 mg/dL High 0.00-1.30 [facility] Comment on above: Performed By: #### L 500.4050 ####[facility] [address] [place], [address] BUN/CRE 7.9 RATIO Low 10-20 [facility] Comment on above: Performed By: #### L 500.4050 ####[facility] [address] [place], [address] Calcium [Mass/Vol] 8.9 mg/dL Normal 7.6-11.0 [facility] Comment on above: Performed By: #### L 500.4050 ####[facility] [address] [place], [address] Chloride [Moles/Vol] 102 mmol/L Normal 98-108 [facility] Comment on above: Performed By: #### L 500.4050 ####[facility] [address] [place], [address] CO2 [Moles/Vol] 22.3 mmol/L Normal 21.0-32.0 [facility] Comment on above: Performed By: #### L 500.4050 ####[facility] [address] [place], [address] Creatinine [Mass/Vol] 0.84 mg/dL Normal 0.70-1.20 [facility] Comment on above: Performed By: #### L 500.4050 ####[facility] [address] [place], [address] ECRCL 57.91 ml/min Normal 50-250 [facility] Comment on above: Performed By: #### L 500.4050 ####[facility] [address] [place], [address] GAP 14 Normal 5-15 [facility] Comment on above: Performed By: #### L 500.4050 ####[facility] [address] [place], [address] GFR/1.73 sq M.predicted among non-blacks MDRD (S/P/Bld) [Vol rate/Area] 75 mL/min/{1.73_m2} Normal >60 [facility] Comment on above: Result Comment: mL/m in/1.73m2 CKD-EPI Creatinine Equation (2020) Performed By: #### L 500.4050 ####[facility] [address] [place], [address] Globulin (S) [Mass/Vol] 2.9 g/dL Normal 2.2-4.2 [facility] Comment on above: Performed By: #### L 500.4050 ####[facility] [address] [place], [address] Glucose [Mass/Vol] 134 mg/dL High 70-99 [facility] Comment on above: Performed By: #### L 500.4050 ####[facility] [address] [place], [address] Potassium [Moles/Vol] 4.4 mmol/L Normal 3.3-5.1 [facility] Comment on above: Performed By: #### L 500.4050 ####[facility] [address] [place], [address] Sodium [Moles/Vol] 138 mmol/L Normal 133-145 [facility] Comment on above: Performed By: #### L 500.4050 ####[facility] [address] [place], [address] T PROT 6.2 g/dL Normal 5.9-8.4 [facility] Comment on above: Performed By: #### L 500.4050 ####[facility] [address] [place], [address] Urea nitrogen [Mass/Vol] 7 mg/dL Normal 4-19 [facility] Comment on above: Performed By: #### L 500.4050 ####[facility] [address] [place], [address] Eosinophil percentageOrdered By: Sherice Fernandez on 12-09-2024 Eosinophils/100 WBC (Bld) 0.1 % 0-5 [facility] Erythrocyte distribution wid th ratioOrdered By: [facility] on 12-09-2024 Erythrocyte distribution width (RBC) [Ratio] 19.4 % High 11.6-14.6 [facility] Erythrocyte distribution wid th standard deviationOrdered By: [facility] Fern[facility] on 12-09-2024 Erythrocyte distribution width (RBC) [Entitic vol] 59.1 fL High 35.1-43.9 [facility] Estimation of creatinine lubna aranceOrdered By: Sherice Fernandez on 12-09-2024 Estimated Creatinine Clearance Calc 57.91 ml/min 50-250 [facility] GFR/1.73 sq M.predicted mary g non-blacks MDRD (S/P/Bld) [Vol rate/Area]Ordered By: Sherice Fernandez on 12-09-2024 Estimated GFR (MDRD) Non-Af Amer 75 >60 [facility] Comment on above: mL/min/1.73m2 CKD-EP I Creatinine Equation (2020) Hematocrit Auto (Bld) [Volum e fraction]Ordered By: Sherice Fernandez on 12-09-2024 Hematocrit (Bld) [Volume fraction] 34.2 % Low 37-47 [facility] Hemoglobin measurementOrdere d By: [facility] on 12-09-2024 Hemoglobin (Bld) [Mass/Vol] 11.4 g/dL Low 12.0-15.0 [facility] Immature granulocytes/100 WB C Auto (Bld)Ordered By: [facility] on 12-09-2024 Immature granulocytes/100 WBC (Bld) 3.400 % High 0.0-0.9 [facility] Comment on above: IG% - Immature Granu locytes (promyelocytes, myelocytes and metamyelocytes) > 1% indicates that a LEFT SHIFT is Present. Laboratory - Chemistry and C hemistry - challengeOrdered By: Sherice Fernandez on 12-09-2024 AST [Catalytic activity/Vol] 248 U/L High <32 [facility] Lymphocytes Auto (Unsp spec) [#/Vol]Ordered By: [facility] 12-09-2024 Lymphocytes (Bld) [#/Vol] 1.01 10*3/uL 0.83-4.51 [facility] Lymphocytes/100 WBC Auto (Un sp spec)Ordered By: [facility] Fern[facility] on 12-09-2024 Lymphocytes/100 WBC (Bld) 11.0 % Low 19-41 [facility] MCV (mean corpuscular volume ) determinationOrdered By: [facility] on 12-09-2024 MCV (RBC) [Entitic vol] 87.9 fL 81-99 [facility] Magnesiumon 12-09-2024 Magnesium [Mass/Vol] 1.4 mg/dL Low 1.5-2.2 [facility] Comment on above: Performed By: #### L 501.2300, L100.0100, L501.5200 ####[facility] [address] [place], [address] Magnesium (Unsp spec) [Mass/ Vol]Ordered By: Sherice Fernandez on 12-09-2024 Magnesium [Mass/Vol] 1.4 mg/dL Low 1.5-2.2 [facility] Manual differential comment Scott (Bld) [Interp]Ordered By: Sherice Fernandez on 12-09-2024 Differential Comment SCANNED [facility] Mean corpuscular hemoglobin (MCH) determinationOrdered By: Sherice Fernandez on 12-09-2024 MCH (RBC) [Entitic mass] 29.3 pg 27.0-32.0 [facility] Mean corpuscular hemoglobin concentration (MCHC) determinationOrdered By: Sherice Fernandez on 12-09-2024 MCHC (RBC) [Mass/Vol] 33.3 g/dL 32-36 [facility] Mean platelet volume determi nationOrdered By: Sherice Fernandez on 12-09-2024 Platelet mean volume (Bld) [Entitic vol] 11.8 fL 6.2-12.0 [facility] Monocyte percentageOrdered B y: Sherice Fernnadez on 12-09-2024 Monocytes/100 WBC (Bld) 12.3 % High 0-10 [facility] Neutrophil percentageOrdered By: Sherice Fernandez on 12-09-2024 Neutrophils/100 WBC (Bld) 72.3 % High 47-70 [facility] Nucleated red blood cell per centageOrdered By: Sherice Fernandez on 12-09-2024 Nucleated RBC/100 WBC (Bld) [Ratio] 0.2 % 0-5 [facility] Oncology Visit Reporton 11-16 Oncology Visit Report Normal [facility] Phosphoruson 12-09-2024 Phosphate [Mass/Vol] 3.0 mg/dL Normal 2.7-4.5 [facility] Comment on above: Performed By: #### L 501.2300, L100.0100, L501.5200 ####[facility] [address] [place], [address] Platelet countOrdered By: Melva Fernandez on 12-09-2024 Platelets (Bld) [#/Vol] 87 10*3/uL Low 150-450 [facility] Platelets LM Ql (Bld)Ordered By: Sherice Fernandez on 12-09-2024 Platelet Estimate MOD DEC ADEQ [facility] Potassium (Unsp spec) [Mass/ Vol]Ordered By: Sherice Fernandez on 12-09-2024 Potassium [Moles/Vol] 4.4 mmol/L 3.3-5.1 [facility] RBC Auto (Bld) [#/Vol]Ordere d By: Sherice Fernandez on 12-09-2024 RBC (Bld) [#/Vol] 3.89 10*6/uL Low 4.2-5.4 [facility] Serum creatinine measurement (mass/volume)Ordered By: Sherice Fernandez on 12-09-2024 Creatinine [Mass/Vol] 0.84 mg/dL 0.70-1.20 [facility] Serum globulin measurementOr dered By: Sherice Fernandez on 12-09-2024 Globulin (S) [Mass/Vol] 2.9 g/dL 2.2-4.2 [facility] Serum glucose measurement (m ass/volume)Ordered By: Sherice Fernandez on 12-09-2024 Glucose [Mass/Vol] 134 mg/dL High 70-99 [facility] Serum or plasma alanine encarnacion otransferase (ALT) measurementOrdered By: Sherice Fernandez on 12-09-2024 ALT [Catalytic activity/Vol] 88 U/L High <35 [facility] Serum or plasma albumin jayro urement (mass/volume)Ordered By: Sherice Fernandez on 12-09-2024 Albumin [Mass/Vol] 3.3 g/dL Low 3.4-4.8 [facility] Serum or plasma albumin/glob ulin mass ratioOrdered By: Sherice Fernandez on 12-09-2024 Albumin/Globulin [Mass ratio] 1.2 {ratio} 0.9-2.4 [facility] Serum or plasma alkaline lukas sphatase measurementOrdered By: Sherice Fernandez on 12-09-2024 ALP [Catalytic activity/Vol] 685 U/L High 35-104 [facility] Serum or plasma calcium jayro urement (mass/volume)Ordered By: Sherice Fernandez on 12-09-2024 Calcium [Mass/Vol] 8.9 mg/dL 7.6-11.0 [facility] Serum or plasma urea nitroge n measurement (mass/volume)Ordered By: Sherice Fernandez on 12-09-2024 Urea nitrogen [Mass/Vol] 7 mg/dL 4-19 [facility] Serum phosphorus measurement Ordered By: Sherice Fernandez on 12-09-2024 Phosphorus Level 3.0 mg/dL 2.7-4.5 [facility] Sodium levelOrdered By: Carmella Fernandez on 12-09-2024 Sodium [Moles/Vol] 138 mmol/L 133-145 [facility] Total proteinOrdered By: Nain Fernandez on 12-09-2024 Protein [Mass/Vol] 6.2 g/dL 5.9-8.4 [facility] White blood cell (WBC) count Ordered By: Sherice Fernandez on 12-09-2024 WBC (Bld) [#/Vol] 9.2 10*3/uL 4.4-11.0 [facility] Brain W/WO Contraston 2024 Brain W/WO Contrast Normal [facility] Magnetic resonance imaging r eportOrdered By: Dillon Mullen on 12-03-2024 Study report [facility] Imaging Services [address] [place] [address] Brain W/WO Contrast MR#: [id number] Acct: [id number] Name: BETSY RODRIGEZ Rep #: [id number] : 1955 F 69 From: Tasha Mullen MD PCP: Dr. Fabricio Lemos MD Status: REG CLI Study:Brain W/WO Contrast Date of Exam: 12/03/24 Exam# [id number] Ordering Dr: Sherice Fernandez MD PROCEDURE: BRAIN W/WO CONTRAST (MRIBRWW), 12/03/2024 REASON FOR EXAM: STAGING SCLC COMPARISON: None. TECHNIQUE: Multisequence multiplanar MRI brain was performed with and without intravenous contrast. Contrast: 14 mL Clariscan. FINDINGS: Cerebrum: No acute infarct, appreciable intracranial hemorrhage, or mass. Minimal supratentorial presumed chronic microvascular ischemic white matter changes. Cerebellum: Unremarkable. Brainstem: Unremarkable. Ventricles/extra-axi al spaces: Unremarkable. Major flow voids: Grossly unremarkable within limits of nondedicated technique. Paranasal sinuses: Mild mucosal thickening of the RIGHT maxillary sinus with suspected air-fluid level. Scalp/calvarium: 1.3 cm enhancing lesion in the RIGHT parietal calvarium. The region was probably above the field of view on PET/CT 11/11/2024. Orbits: Bilateral cataract surgery. Other: No other abnormal enhancement. MRI/Brain W/WO Contrast IMPRESSION: 1. 1.3 cm enhancing lesion in the RIGHT parietal calvarium is nonspecific but suspicious for possible osseous metastatic disease. This was unfortunately likely above the field of view on recent PET/CT. Recommend clinical/oncologic follow-up. Dedicated PET/CT of the head/calvarium could be considered. 2. Mild RIGHT maxillary paranasal sinus disease including evidence of possible mild acute sinusitis. 3. Additional description as above. Reading Location: [id number] CC: Dr. Fabricio Lemos MD; Dr. Sherice Fernandez MD ~ Hot Box Operator: Signed [facility] Basic Metabolic Profile (BMP )on 12-02-2024 BUN/CRE 20.6 RATIO High 10-20 [facility] Comment on above: Performed By: #### L 500.2500, L100.0100, L501.2300, L501.5200 ####[facility] [address] [place], [address] Calcium [Mass/Vol] 10.0 mg/dL Normal 7.6-11.0 [facility] Comment on above: Performed By: #### L 500.2500, L100.0100, L501.2300, L501.5200 ####[facility] [address] [place], [address] Chloride [Moles/Vol] 102 mmol/L Normal 98-108 [facility] Comment on above: Performed By: #### L 500.2500, L100.0100, L501.2300, L501.5200 ####[facility] [address] [place], [address] CO2 [Moles/Vol] 22.1 mmol/L Normal 21.0-32.0 [facility] Comment on above: Performed By: #### L 500.2500, L100.0100, L501.2300, L501.5200 ####[facility] [address] [place], [address] Creatinine [Mass/Vol] 0.95 mg/dL Normal 0.70-1.20 [facility] Comment on above: Performed By: #### L 500.2500, L100.0100, L501.2300, L501.5200 ####[facility] [address] [place], [address] ECRCL 52.76 ml/min Normal 50-250 [facility] Comment on above: Performed By: #### L 500.2500, L100.0100, L501.2300, L501.5200 ####[facility] [address] [place], [address] GAP 14 Normal 5-15 [facility] Comment on above: Performed By: #### L 500.2500, L100.0100, L501.2300, L501.5200 ####[facility] [address] [place], [address] GFR/1.73 sq M.predicted among non-blacks MDRD (S/P/Bld) [Vol rate/Area] 64 mL/min/{1.73_m2} Normal >60 [facility] Comment on above: Result Comment: mL/m in/1.73m2 CKD-EPI Creatinine Equation (2020) Performed By: #### L 500.2500, L100.0100, L501.2300, L501.5200 ####[facility] [address] [place], [address] Glucose [Mass/Vol] 167 mg/dL High 70-99 [facility] Comment on above: Performed By: #### L 500.2500, L100.0100, L501.2300, L501.5200 ####[facility] [address] [place], [address] Potassium [Moles/Vol] 4.3 mmol/L Normal 3.3-5.1 [facility] Comment on above: Performed By: #### L 500.2500, L100.0100, L501.2300, L501.5200 ####[facility] [address] [place], [address] Sodium [Moles/Vol] 138 mmol/L Normal 133-145 [facility] Comment on above: Performed By: #### L 500.2500, L100.0100, L501.2300, L501.5200 ####[facility] [address] [place], [address] Urea nitrogen [Mass/Vol] 20 mg/dL High 4-19 [facility] Comment on above: Performed By: #### L 500.2500, L100.0100, L501.2300, L501.5200 ####[facility] [address] [place], [address] Bilirubin directOrdered By: Sharda Bronson on 12-02-2024 Bilirubin.direct [Mass/Vol] 3.44 mg/dL High 0.00-0.30 [facility] Blood band neutrophil count as percentage of total leukocytesOrdered By: Sherice Fernandez on 12-02-2024 Band form neutrophils/100 WBC (Bld) 7 % High 0-5 [facility] Blood lymphocytes/100 leukoc ytesOrdered By: Sherice Fernandez on 12-02-2024 Lymphocytes/100 WBC (Bld) 10 % Low 19-41 [facility] Blood metamyelocytes/100 isa kocytesOrdered By: Sherice Fernandez on 12-02-2024 Metamyelocytes/100 WBC (Bld) 1 % 0-1 [facility] Blood monocytes/100 leukocyt esOrdered By: Sherice Jim on 12-02-2024 Monocytes/100 WBC (Bld) 3 % 0-10 [facility] Cells counted Molgen (Bld/Ti ss) [#]Ordered By: Sherice Jim on 12-02-2024 Differential Total Cells Counted 100 MANUAL DIFF [facility] Erythrocyte morphology asses smentOrdered By: Carmelaladrian Fernandez on 12-02-2024 RBC morphology finding Nom (Bld) NORM C+C NORMAL NORM C&C [facility] Liver Profileon 12-02-2024 Albumin [Mass/Vol] 3.5 g/dL Normal 3.4-4.8 [facility] Comment on above: Order Comment: ADD O N TG4 5 J Performed By: #### L 500.3400 ####[facility] [address] [place], [address] ALK PHOS 648 U/L High 35-104 [facility] Comment on above: Order Comment: ADD O N TG4 5 J Performed By: #### L 500.3400 ####[facility] [address] [place], [address] ALT [Catalytic activity/Vol] 157 U/L High <=34 [facility] Comment on above: Order Comment: ADD O N TG4 5 J Performed By: #### L 500.3400 ####[facility] [address] [place], [address] AST [Catalytic activity/Vol] 408 U/L High <=31 [facility] Comment on above: Order Comment: ADD O N TG4 5 J Performed By: #### L 500.3400 ####[facility] [address] [place], [address] Bilirubin [Mass/Vol] 4.41 mg/dL High 0.00-1.30 [facility] Comment on above: Order Comment: ADD O N TG4 5 J Performed By: #### L 500.3400 ####[facility] [address] [place], [address] Bilirubin.direct [Mass/Vol] 3.44 mg/dL High 0.00-0.30 [facility] Comment on above: Order Comment: ADD O N TG4 5 J Performed By: #### L 500.3400 ####[facility] [address] [place], [address] Globulin (S) [Mass/Vol] 3.0 g/dL Normal 2.2-4.2 [facility] Comment on above: Order Comment: ADD N TG4 5 J Performed By: #### L 500.3400 ####[facility] [address] [place], [address] T PROT 6.5 g/dL Normal 5.9-8.4 [facility] Comment on above: Order Comment: ADD O N TG4 5 J Performed By: #### L 500.3400 ####[facility] [address] [place], [address] Magnesiumon 12-02-2024 Magnesium [Mass/Vol] 1.4 mg/dL Low 1.5-2.2 [facility] Comment on above: Performed By: #### L 500.2500, L100.0100, L501.2300, L501.5200 ####[facility] [address] [place], [address] Oncology Visit Reporton 11-15 Oncology Visit Report Normal [facility] Pathologist review Scott (Unsp spec) [Interp]Ordered By: Sherice Fernandez on 12-02-2024 Differential Pathologist's Review May anastasia [facility] Phosphoruson 12-02-2024 Phosphate [Mass/Vol] 3.0 mg/dL Normal 2.7-4.5 [facility] Comment on above: Performed By: #### L 500.2500, L100.0100, L501.2300, L501.5200 ####[facility] [address] [place], [address] RBC morphology finding Nom ( Bld)Ordered By: Sherice Fernandez on 12-02-2024 Red Blood Cell Morphology NORM C+C NORMAL NORM C&C [facility] Segmented neutrophils/100 WB C (Bld)Ordered By: Sherice Fernandez on 12-02-2024 Neutrophils/100 WBC (Bld) 79 % High 47-70 [facility] CBC W/Diff, Automatedon 11-15 Absolute Neut Normal 2.0-7.7 [facility] Comment on above: Result Comment: PER JESSE NURSE CBCD NOT NEEDED Performed By: #### L 100.0100, L500.4050 ####[facility] [address] [place], [address] HCT Normal 37-47 [facility] Comment on above: Result Comment: PER JESSE NURSE CBCD NOT NEEDED Performed By: #### L 100.0100, L500.4050 ####[facility] [address] [place], [address] HGB Normal 12.0-15.0 [facility] Comment on above: Result Comment: PER JESSE NURSE CBCD NOT NEEDED Performed By: #### L 100.0100, L500.4050 ####[facility] [address] [place], [address] MCH Normal 27.0-32.0 [facility] Comment on above: Result Comment: PER JESSE NURSE CBCD NOT NEEDED Performed By: #### L 100.0100, L500.4050 ####[facility] [address] [place], [address] MCHC Normal 32-36 [facility] Comment on above: Result Comment: PER JESSE NURSE CBCD NOT NEEDED Performed By: #### L 100.0100, L500.4050 ####[facility] [address] [place], [address] MCV Normal 81-99 [facility] Comment on above: Result Comment: PER JESSE NURSE CBCD NOT NEEDED Performed By: #### L 100.0100, L500.4050 ####[facility] [address] [place], [address] NEUT% Normal 47-70 [facility] Comment on above: Result Comment: PER JESSE NURSE CBCD NOT NEEDED Performed By: #### L 100.0100, L500.4050 ####[facility] [address] [place], [address] PLT Normal 150-450 [facility] Comment on above: Result Comment: PER JESSE NURSE CBCD NOT NEEDED Performed By: #### L 100.0100, L500.4050 ####[facility] [address] [place], [address] RBC Normal 4.2-5.4 [facility] Comment on above: Result Comment: PER JESSE NURSE CBCD NOT NEEDED Performed By: #### L 100.0100, L500.4050 ####[facility] [address] [place], [address] RDW CV Normal 11.6-14.6 [facility] Comment on above: Result Comment: PER JESSE NURSE CBCD NOT NEEDED Performed By: #### L 100.0100, L500.4050 ####[facility] [address] [place], [address] RDW SD Normal 35.1-43.9 [facility] Comment on above: Result Comment: PER JESSE NURSE CBCD NOT NEEDED Performed By: #### L 100.0100, L500.4050 ####[facility] [address] [place], [address] WBC Normal 4.4-11.0 [facility] Comment on above: Result Comment: PER JESSE NURSE CBCD NOT NEEDED Performed By: #### L 100.0100, L500.4050 ####[facility] [address] [place], [address] Comprehensive Metabolic Prof ilon 11-25-2024 Albumin [Mass/Vol] 3.5 g/dL Normal 3.4-4.8 [facility] Comment on above: Performed By: #### L 100.0100, L500.4050 ####[facility] [address] [place], [address] Albumin/Globulin [Mass ratio] 1.1 {ratio} Normal 0.9-2.4 [facility] Comment on above: Performed By: #### L 100.0100, L500.4050 ####[facility] [address] [place], [address] ALK PHOS 582 U/L High 35-104 [facility] Comment on above: Performed By: #### L 100.0100, L500.4050 ####[facility] [address] [place], [address] ALT [Catalytic activity/Vol] 159 U/L High <=34 [facility] Comment on above: Performed By: #### L 100.0100, L500.4050 ####[facility] [address] [place], [address] AST [Catalytic activity/Vol] 698 U/L High <=31 [facility] Comment on above: Performed By: #### L 100.0100, L500.4050 ####[facility] [address] [place], [address] Bilirubin [Mass/Vol] 3.65 mg/dL High 0.00-1.30 [facility] Comment on above: Performed By: #### L 100.0100, L500.4050 ####[facility] [address] [place], [address] BUN/CRE 15.4 RATIO Normal 10-20 [facility] Comment on above: Performed By: #### L 100.0100, L500.4050 ####[facility] [address] [place], [address] Calcium [Mass/Vol] 11.4 mg/dL High 7.6-11.0 [facility] Comment on above: Performed By: #### L 100.0100, L500.4050 ####[facility] [address] [place], [address] Chloride [Moles/Vol] 101 mmol/L Normal 98-108 [facility] Comment on above: Performed By: #### L 100.0100, L500.4050 ####[facility] [address] [place], [address] CO2 [Moles/Vol] 18.1 mmol/L Low 21.0-32.0 [facility] Comment on above: Performed By: #### L 100.0100, L500.4050 ####[facility] [address] [place], [address] Creatinine [Mass/Vol] 1.09 mg/dL Normal 0.70-1.20 [facility] Comment on above: Performed By: #### L 100.0100, L500.4050 ####[facility] [address] [place], [address] ECRCL 45.19 ml/min Low 50-250 [facility] Comment on above: Performed By: #### L 100.0100, L500.4050 ####[facility] [address] [place], [address] GAP 18 High 5-15 [facility] Comment on above: Performed By: #### L 100.0100, L500.4050 ####[facility] [address] [place], [address] GFR/1.73 sq M.predicted among non-blacks MDRD (S/P/Bld) [Vol rate/Area] 55 mL/min/{1.73_m2} Low >60 [facility] Comment on above: Result Comment: mL/m in/1.73m2 CKD-EPI Creatinine Equation (2020) Performed By: #### L 100.0100, L500.4050 ####[facility] [address] [place], [address] Globulin (S) [Mass/Vol] 3.1 g/dL Normal 2.2-4.2 [facility] Comment on above: Performed By: #### L 100.0100, L500.4050 ####[facility] [address] [place], [address] Glucose [Mass/Vol] 111 mg/dL High 70-99 [facility] Comment on above: Performed By: #### L 100.0100, L500.4050 ####[facility] [address] [place], [address] Potassium [Moles/Vol] 3.8 mmol/L Normal 3.3-5.1 [facility] Comment on above: Performed By: #### L 100.0100, L500.4050 ####[facility] [address] [place], [address] Sodium [Moles/Vol] 138 mmol/L Normal 133-145 [facility] Comment on above: Performed By: #### L 100.0100, L500.4050 ####[facility] [address] [place], [address] T PROT 6.5 g/dL Normal 5.9-8.4 [facility] Comment on above: Performed By: #### L 100.0100, L500.4050 ####[facility] [address] [place], [address] Urea nitrogen [Mass/Vol] 17 mg/dL Normal 4-19 [facility] Comment on above: Performed By: #### L 100.0100, L500.4050 ####[facility] [address] [place], [id number] ALB Normal 3.4-4.8 [facility] Comment on above: Result Comment: THER E WAS TX PLAN DUPLICATED NEEDS Performed By: #### L 500.4050 ####[facility] [address] [place], [address] ALK PHOS Normal 35-104 [facility] Comment on above: Result Comment: THER E WAS TX PLAN DUPLICATED NEEDS Performed By: #### L 500.4050 ####[facility] [address] [place], [address] ALT Normal <=34 [facility] Comment on above: Result Comment: THER E WAS TX PLAN DUPLICATED NEEDS Performed By: #### L 500.4050 ####[facility] [address] [place], [address] AST Normal <=31 [facility] Comment on above: Result Comment: THER E WAS TX PLAN DUPLICATED NEEDS Performed By: #### L 500.4050 ####[facility] [address] [place], [address] BUN Normal 4-19 [facility] Comment on above: Result Comment: THER E WAS TX PLAN DUPLICATED NEEDS Performed By: #### L 500.4050 ####[facility] [address] [place], [address] BUN/CRE Normal 10-20 [facility] Comment on above: Result Comment: THER E WAS TX PLAN DUPLICATED NEEDS Performed By: #### L 500.4050 ####[facility] [address] [place], [address] Calcium Normal 7.6-11.0 [facility] Comment on above: Result Comment: THER E WAS TX PLAN DUPLICATED NEEDS Performed By: #### L 500.4050 ####[facility] [address] [place], [address] CL Normal 98-108 [facility] Comment on above: Result Comment: THER E WAS TX PLAN DUPLICATED NEEDS Performed By: #### L 500.4050 ####[facility] [address] [place], [address] CO2 Normal 21.0-32.0 [facility] Comment on above: Result Comment: THER E WAS TX PLAN DUPLICATED NEEDS Performed By: #### L 500.4050 ####[facility] [address] [place], [address] CREAT,SERUM Normal 0.70-1.20 [facility] Comment on above: Result Comment: THER E WAS TX PLAN DUPLICATED NEEDS Performed By: #### L 500.4050 ####[facility] [address] [place], [address] eGFR Normal >60 [facility] Comment on above: Result Comment: THER E WAS TX PLAN DUPLICATED NEEDS Performed By: #### L 500.4050 ####[facility] [address] [place], [address] GAP Normal 5-15 [facility] Comment on above: Result Comment: THER E WAS TX PLAN DUPLICATED NEEDS Performed By: #### L 500.4050 ####[facility] [address] [place], [address] GLU Normal 70-99 [facility] Comment on above: Result Comment: THER E WAS TX PLAN DUPLICATED NEEDS Performed By: #### L 500.4050 ####[facility] [address] [place], [address] Potassium Normal 3.3-5.1 [facility] Comment on above: Result Comment: THER E WAS TX PLAN DUPLICATED NEEDS Performed By: #### L 500.4050 ####[facility] [address] [place], [address] T BILI Normal 0.00-1.30 [facility] Comment on above: Result Comment: THER E WAS TX PLAN DUPLICATED NEEDS Performed By: #### L 500.4050 ####[facility] [address] [place], [address] T PROT Normal 5.9-8.4 [facility] Comment on above: Result Comment: THER E WAS TX PLAN DUPLICATED NEEDS Performed By: #### L 500.4050 ####[facility] [address] [place], [address] Comprehensive Metabolic Profil Normal 133-145 [facility] Comment on above: Result Comment: THER E WAS TX PLAN DUPLICATED NEEDS Performed By: #### L 500.4050 ####[facility] [address] [place], [address] CBC W/Diff, Automatedon 03-1 0-2025 Absolute Lymph 0.81 X10 3/uL Low 0.83-4.51 [facility] Comment on above: Performed By: #### L 100.0100, L500.4050 ####[facility] [address] [place], [address] Absolute Neut 6.9 X10 3/uL Normal 2.0-7.7 [facility] Comment on above: Performed By: #### L 100.0100, L500.4050 ####[facility] [address] [place], [address] Basophils/100 WBC (Bld) 0.4 % Normal 0-1 [facility] Comment on above: Performed By: #### L 100.0100, L500.4050 ####[facility] [address] [place], [address] Eosinophils/100 WBC (Bld) 0.1 % Normal 0-5 [facility] Comment on above: Performed By: #### L 100.0100, L500.4050 ####[facility] [address] [place], [address] Erythrocyte distribution width (RBC) [Ratio] 18.2 % High 11.6-14.6 [facility] Comment on above: Performed By: #### L 100.0100, L500.4050 ####[facility] [address] [place], [address] Hematocrit (Bld) [Volume fraction] 41.0 % Normal 37-47 [facility] Comment on above: Performed By: #### L 100.0100, L500.4050 ####[facility] [address] [place], [address] Hemoglobin (Bld) [Mass/Vol] 13.4 g/dL Normal 12.0-15.0 [facility] Comment on above: Performed By: #### L 100.0100, L500.4050 ####[facility] [address] [place], [address] IG% 0.700 Normal 0.0-0.9 [facility] Comment on above: Result Comment: IG% - Immature Granulocytes (promyelocytes, myelocytes andmetamyelocytes) > 1% indicates that a LEFT SHIFT is Present. Performed By: #### L 100.0100, L500.4050 ####[facility] [address] [place], [address] Lymphocytes/100 WBC (Bld) 9.0 % Low 19-41 [facility] Comment on above: Performed By: #### L 100.0100, L500.4050 ####[facility] [address] [place], [id number] MCH (RBC) [Entitic mass] 28.6 pg Normal 27.0-32.0 [facility] Comment on above: Performed By: #### L 100.0100, L500.4050 ####[facility] [address] [place], [address] MCHC (RBC) [Mass/Vol] 32.7 g/dL Normal 32-36 [facility] Comment on above: Performed By: #### L 100.0100, L500.4050 ####[facility] [address] [place], [address] MCV (RBC) [Entitic vol] 87.4 fL Normal 81-99 [facility] Comment on above: Performed By: #### L 100.0100, L500.4050 ####[facility] [address] [place], [address] Monocytes/100 WBC (Bld) 13.4 % High 0-10 [facility] Comment on above: Performed By: #### L 100.0100, L500.4050 ####[facility] [address] [place], [address] Neutrophils/100 WBC (Bld) 76.4 % High 47-70 [facility] Comment on above: Performed By: #### L 100.0100, L500.4050 ####[facility] [address] [place], [address] Nucleated RBC (Bld) [#/Vol] 0.2 10*3/uL Normal 0-5 [facility] Comment on above: Performed By: #### L 100.0100, L500.4050 ####[facility] [address] [place], [address] Platelet mean volume (Bld) [Entitic vol] 11.3 fL Normal 6.2-12.0 [facility] Comment on above: Performed By: #### L 100.0100, L500.4050 ####[facility] [address] [place], [address] Platelets (Bld) [#/Vol] 340 10*3/uL Normal 150-450 [facility] Comment on above: Performed By: #### L 100.0100, L500.4050 ####[facility] [address] [place], [address] RBC (Bld) [#/Vol] 4.69 10*6/uL Normal 4.2-5.4 [facility] Comment on above: Performed By: #### L 100.0100, L500.4050 ####[facility] [address] [place], [id number] RDW SD 56.8 fl High 35.1-43.9 [facility] Comment on above: Performed By: #### L 100.0100, L500.4050 ####[facility] [address] [place], [id number] WBC (Bld) [#/Vol] 9.0 10*3/uL Normal 4.4-11.0 [facility] Comment on above: Performed By: #### L 100.0100, L500.4050 ####[facility] [address] [place], [address] Comprehensive Metabolic Prof ilon 11-24-2024 Albumin [Mass/Vol] 3.6 g/dL Normal 3.4-4.8 [facility] Comment on above: Performed By: #### L 100.0100, L500.4050 ####[facility] [address] [place], [id number] Albumin/Globulin [Mass ratio] 1.1 {ratio} Normal 0.9-2.4 [facility] Comment on above: Performed By: #### L 100.0100, L500.4050 ####[facility] [address] [place], [id number] ALK PHOS 606 U/L High 35-104 [facility] Comment on above: Performed By: #### L 100.0100, L500.4050 ####[facility] [address] [place], [address] ALT [Catalytic activity/Vol] 164 U/L High <=34 [facility] Comment on above: Performed By: #### L 100.0100, L500.4050 ####[facility] [address] [place], [address] AST [Catalytic activity/Vol] 675 U/L High <=31 [facility] Comment on above: Performed By: #### L 100.0100, L500.4050 ####[facility] [address] [place], [address] Bilirubin [Mass/Vol] 3.14 mg/dL High 0.00-1.30 [facility] Comment on above: Performed By: #### L 100.0100, L500.4050 ####[facility] [address] [place], [address] BUN/CRE 17.6 RATIO Normal 10-20 [facility] Comment on above: Performed By: #### L 100.0100, L500.4050 ####[facility] [address] [place], [address] Calcium [Mass/Vol] 11.8 mg/dL High 7.6-11.0 [facility] Comment on above: Performed By: #### L 100.0100, L500.4050 ####[facility] [address] [place], [address] Chloride [Moles/Vol] 100 mmol/L Normal 98-108 [facility] Comment on above: Performed By: #### L 100.0100, L500.4050 ####[facility] [address] [place], [address] CO2 [Moles/Vol] 21.0 mmol/L Normal 21.0-32.0 [facility] Comment on above: Performed By: #### L 100.0100, L500.4050 ####[facility] [address] [place], [id number] Creatinine [Mass/Vol] 1.29 mg/dL High 0.70-1.20 [facility] Comment on above: Performed By: #### L 100.0100, L500.4050 ####[facility] [address] [place], [id number] ECRCL 38.19 ml/min Low 50-250 [facility] Comment on above: Performed By: #### L 100.0100, L500.4050 ####[facility] [address] [place], [id number] GAP 17 High 5-15 [facility] Comment on above: Performed By: #### L 100.0100, L500.4050 ####[facility] [address] [place], [id number] GFR/1.73 sq M.predicted among non-blacks MDRD (S/P/Bld) [Vol rate/Area] 45 mL/min/{1.73_m2} Low >60 [facility] Comment on above: Result Comment: mL/m in/1.73m2 CKD-EPI Creatinine Equation (2020) Performed By: #### L 100.0100, L500.4050 ####[facility] [address] [place], [id number] Globulin (S) [Mass/Vol] 3.2 g/dL Normal 2.2-4.2 [facility] Comment on above: Performed By: #### L 100.0100, L500.4050 ####[facility] [facility] [address] [place], [id number] Glucose [Mass/Vol] 97 mg/dL Normal 70-99 [facility] Comment on above: Performed By: #### L 100.0100, L500.4050 ####[facility] [address] [place], [address] Potassium [Moles/Vol] 4.2 mmol/L Normal 3.3-5.1 [facility] Comment on above: Performed By: #### L 100.0100, L500.4050 ####[facility] [address] [place], [address] Sodium [Moles/Vol] 138 mmol/L Normal 133-145 [facility] Comment on above: Performed By: #### L 100.0100, L500.4050 ####[facility] [address] [place], [address] T PROT 6.8 g/dL Normal 5.9-8.4 [facility] Comment on above: Performed By: #### L 100.0100, L500.4050 ####[facility] [address] [place], [address] Urea nitrogen [Mass/Vol] 23 mg/dL High 4-19 [facility] Comment on above: Performed By: #### L 100.0100, L500.4050 ####[facility] [address] [place], [address] Oncology Visit Reporton 11-15 Oncology Visit Report Normal [facility] Absolute lymphocyte countOrd ered By: Yenifer Patten on 11-23-2024 Lymphocytes Auto (Unsp spec) [#/Vol] 0.69 10*3/uL Low 0.83-4.51 [facility] Absolute neutrophil countOrd ered By: Yenifer Patten on 11-23-2024 Neutrophils (Bld) [#/Vol] 7.5 10*3/uL 2.0-7.7 [facility] Anion gap in Serum or Plasma Ordered By: Yenifer Patten on 11-23-2024 Anion gap [Moles/Vol] 18 mmol/L High 5-15 [facility] Automated lymphocyte count a s percentage of total leukocytesOrdered By: Yenifer Patten on 11-23-2024 Lymphocytes/100 WBC Auto (Unsp spec) 7.2 % Low 19-41 [facility] BUN/creatinine ratioOrdered By: Yenifer Patten on 11-23-2024 Urea nitrogen/Creatinine [Mass ratio] 18.3 mg/mg 10-20 [facility] Basophil percentageOrdered B y: Yenifer Patten on 11-23-2024 Basophils/100 WBC (Bld) 0.4 % 0-1 [facility] Bilirubin, totalOrdered By: Yenifer Patten on 11-23-2024 Bilirubin [Mass/Vol] 3.04 mg/dL High 0.00-1.30 [facility] CBC W/Diff, Automatedon Absolute Lymph 0.69 X10 3/uL Low 0.83-4.51 [facility] Comment on above: Performed By: #### L 100.0100, L500.4050, L501.2450 ####[facility] [address] [place], [address] Absolute Neut 7.5 X10 3/uL Normal 2.0-7.7 [facility] Comment on above: Performed By: #### L 100.0100, L500.4050, L501.2450 ####[facility] [address] [place], [address] Basophils/100 WBC (Bld) 0.4 % Normal 0-1 [facility] Comment on above: Performed By: #### L 100.0100, L500.4050, L501.2450 ####[facility] [address] [place], [address] Eosinophils/100 WBC (Bld) 0.1 % Normal 0-5 [facility] Comment on above: Performed By: #### L 100.0100, L500.4050, L501.2450 ####[facility] [address] [place], [address] Erythrocyte distribution width (RBC) [Ratio] 17.4 % High 11.6-14.6 [facility] Comment on above: Performed By: #### L 100.0100, L500.4050, L501.2450 ####[facility] [address] [place], [address] Hematocrit (Bld) [Volume fraction] 41.5 % Normal 37-47 [facility] Comment on above: Performed By: #### L 100.0100, L500.4050, L501.2450 ####[facility] [address] [place], [address] Hemoglobin (Bld) [Mass/Vol] 14.3 g/dL Normal 12.0-15.0 [facility] Comment on above: Performed By: #### L 100.0100, L500.4050, L501.2450 ####[facility] [address] [place], [address] IG% 0.700 Normal 0.0-0.9 [facility] Comment on above: Result Comment: IG% - Immature Granulocytes (promyelocytes, myelocytes andmetamyelocytes) > 1% indicates that a LEFT SHIFT is Present. Performed By: #### L 100.0100, L500.4050, L501.2450 ####[facility] [address] [place], [address] Lymphocytes/100 WBC (Bld) 7.2 % Low 19-41 [facility] Comment on above: Performed By: #### L 100.0100, L500.4050, L501.2450 ####[facility] [address] [place], [address] MCH (RBC) [Entitic mass] 29.8 pg Normal 27.0-32.0 [facility] Comment on above: Performed By: #### L 100.0100, L500.4050, L501.2450 ####[facility] [address] [place], [address] MCHC (RBC) [Mass/Vol] 34.5 g/dL Normal 32-36 [facility] Comment on above: Performed By: #### L 100.0100, L500.4050, L501.2450 ####[facility] [address] [place], [address] MCV (RBC) [Entitic vol] 86.5 fL Normal 81-99 [facility] Comment on above: Performed By: #### L 100.0100, L500.4050, L501.2450 ####[facility] [address] [place], [address] Monocytes/100 WBC (Bld) 13.0 % High 0-10 [facility] Comment on above: Performed By: #### L 100.0100, L500.4050, L501.2450 ####[facility] [address] [place], [address] Neutrophils/100 WBC (Bld) 78.6 % High 47-70 [facility] Comment on above: Performed By: #### L 100.0100, L500.4050, L501.2450 ####[facility] [address] [place], [address] Nucleated RBC (Bld) [#/Vol] 0.3 10*3/uL Normal 0-5 [facility] Comment on above: Performed By: #### L 100.0100, L500.4050, L501.2450 ####[facility] [address] [place], [address] Platelet mean volume (Bld) [Entitic vol] 11.5 fL Normal 6.2-12.0 [facility] Comment on above: Performed By: #### L 100.0100, L500.4050, L501.2450 ####[facility] [address] [place], [address] Platelets (Bld) [#/Vol] 348 10*3/uL Normal 150-450 [facility] Comment on above: Performed By: #### L 100.0100, L500.4050, L501.2450 ####[facility] [address] [place], [address] RBC (Bld) [#/Vol] 4.80 10*6/uL Normal 4.2-5.4 [facility] Comment on above: Performed By: #### L 100.0100, L500.4050, L501.2450 ####[facility] [address] [place], [address] RDW SD 53.6 fl High 35.1-43.9 [facility] Comment on above: Performed By: #### L 100.0100, L500.4050, L501.2450 ####[facility] [address] [place], [address] WBC (Bld) [#/Vol] 9.6 10*3/uL Normal 4.4-11.0 [facility] Comment on above: Performed By: #### L 100.0100, L500.4050, L501.2450 ####[facility] [address] [place], [address] Carbon dioxide, total [Moles /volume] in Central venous bloodOrdered By: Yenifer Patten on 11-23-2024 CO2 [Moles/Vol] 19.7 mmol/L Low 21.0-32.0 [facility] Chloride assayOrdered By: Kristin Patten on 11-23-2024 Chloride [Moles/Vol] 101 mmol/L 98-108 [facility] Comprehensive Metabolic Prof ilon 11-23-2024 Albumin [Mass/Vol] 3.5 g/dL Normal 3.4-4.8 [facility] Comment on above: Performed By: #### L 100.0100, L500.4050, L501.2450 ####[facility] [address] [place], [address] Albumin/Globulin [Mass ratio] 1.1 {ratio} Normal 0.9-2.4 [facility] Comment on above: Performed By: #### L 100.0100, L500.4050, L501.2450 ####[facility] [address] [place], [address] ALK PHOS 603 U/L High 35-104 [facility] Comment on above: Performed By: #### L 100.0100, L500.4050, L501.2450 ####[facility] [address] [place], [address] ALT [Catalytic activity/Vol] 159 U/L High <=34 [facility] Comment on above: Performed By: #### L 100.0100, L500.4050, L501.2450 ####[facility] [address] [place], [address] AST [Catalytic activity/Vol] 683 U/L High <=31 [facility] Comment on above: Performed By: #### L 100.0100, L500.4050, L501.2450 ####[facility] [address] [place], [address] Bilirubin [Mass/Vol] 3.04 mg/dL High 0.00-1.30 [facility] Comment on above: Performed By: #### L 100.0100, L500.4050, L501.2450 ####[facility] [address] [place], [address] BUN/CRE 18.3 RATIO Normal 10-20 [facility] Comment on above: Performed By: #### L 100.0100, L500.4050, L501.2450 ####[facility] [address] [place], [address] Calcium [Mass/Vol] 11.8 mg/dL High 7.6-11.0 [facility] Comment on above: Performed By: #### L 100.0100, L500.4050, L501.2450 ####[facility] [address] [place], [address] Chloride [Moles/Vol] 101 mmol/L Normal 98-108 [facility] Comment on above: Performed By: #### L 100.0100, L500.4050, L501.2450 ####[facility] [address] [place], [address] CO2 [Moles/Vol] 19.7 mmol/L Low 21.0-32.0 [facility] Comment on above: Performed By: #### L 100.0100, L500.4050, L501.2450 ####[facility] [address] [place], [address] Creatinine [Mass/Vol] 1.22 mg/dL High 0.70-1.20 [facility] Comment on above: Performed By: #### L 100.0100, L500.4050, L501.2450 ####[facility] [address] [place], [address] ECRCL 40.43 ml/min Low 50-250 [facility] Comment on above: Performed By: #### L 100.0100, L500.4050, L501.2450 ####[facility] [address] [place], [address] GAP 18 High 5-15 [facility] Comment on above: Performed By: #### L 100.0100, L500.4050, L501.2450 ####[facility] [address] [place], [address] GFR/1.73 sq M.predicted among non-blacks MDRD (S/P/Bld) [Vol rate/Area] 48 mL/min/{1.73_m2} Low >60 [facility] Comment on above: Result Comment: mL/m in/1.73m2 CKD-EPI Creatinine Equation (2020) Performed By: #### L 100.0100, L500.4050, L501.2450 ####[facility] [address] [place], [address] Globulin (S) [Mass/Vol] 3.2 g/dL Normal 2.2-4.2 [facility] Comment on above: Performed By: #### L 100.0100, L500.4050, L501.2450 ####[facility] [address] [place], [address] Glucose [Mass/Vol] 118 mg/dL High 70-99 [facility] Comment on above: Performed By: #### L 100.0100, L500.4050, L501.2450 ####[facility] [address] [place], [address] Potassium [Moles/Vol] 4.3 mmol/L Normal 3.3-5.1 [facility] Comment on above: Performed By: #### L 100.0100, L500.4050, L501.2450 ####[facility] [address] [place], [address] Sodium [Moles/Vol] 139 mmol/L Normal 133-145 [facility] Comment on above: Performed By: #### L 100.0100, L500.4050, L501.2450 ####[facility] [address] [place], [address] T PROT 6.8 g/dL Normal 5.9-8.4 [facility] Comment on above: Performed By: #### L 100.0100, L500.4050, L501.2450 ####[facility] [address] [place], [address] Urea nitrogen [Mass/Vol] 22 mg/dL High 4-19 [facility] Comment on above: Performed By: #### L 100.0100, L500.4050, L501.2450 ####[facility] [address] [place], [address] Emergency Department Summary on 11-23-2024 Emergency Department Summary Normal [facility] Eosinophil percentageOrdered By: Yenifer Patten on 11-23-2024 Eosinophils/100 WBC (Bld) 0.1 % 0-5 [facility] Erythrocyte distribution wid th ratioOrdered By: Yenifer Patten on 11-23-2024 Erythrocyte distribution width (RBC) [Ratio] 17.4 % High 11.6-14.6 [facility] Erythrocyte distribution wid th standard deviationOrdered By: Yenifer Patten on 11-23-2024 Erythrocyte distribution width (RBC) [Entitic vol] 53.6 fL High 35.1-43.9 [facility] Erythrocyte distribution width (RBC) [Ratio] 53.6 fl High 35.1-43.9 [facility] Estimation of creatinine lubna aranceOrdered By: Yenifer Patten on 11-23-2024 Estimated Creatinine Clearance Calc 40.43 ml/min Low 50-250 [facility] GFR/1.73 sq M.predicted mary g non-blacks MDRD (S/P/Bld) [Vol rate/Area]Ordered By: Yenifer Patten on 11-23-2024 Estimated GFR (MDRD) Non-Af Amer 48 Low >60 [facility] Comment on above: mL/min/1.73m2 CKD-EP I Creatinine Equation (2020) Glomerular filtration rate ( GFR) estimation/1.73 sq m using serum, plasma, or whole bOrdered By: Yenifer Patten on 11-23-2024 GFR/1.73 sq M.predicted among non-blacks MDRD (S/P/Bld) [Vol rate/Area] 48 mL/min/{1.73_m2} Low >60 [facility] Comment on above: mL/min/1.73m2 CKD-EP I Creatinine Equation (2020) Hematocrit Auto (Bld) [Volum e fraction]Ordered By: Yenifer Patten on 11-23-2024 Hematocrit (Bld) [Volume fraction] 41.5 % 37-47 [facility] Hemoglobin measurementOrdere d By: Yenifer Patten on 11-23-2024 Hemoglobin (Bld) [Mass/Vol] 14.3 g/dL 12.0-15.0 [facility] Immature granulocytes/100 WB C Auto (Bld)Ordered By: Yenifer Patten on 11-23-2024 Immature granulocytes/100 WBC (Bld) 0.700 % 0.0-0.9 [facility] Comment on above: IG% - Immature Granu locytes (promyelocytes, myelocytes and metamyelocytes) > 1% indicates that a LEFT SHIFT is Present. Laboratory - Chemistry and C hemistry - challengeOrdered By: Yenifer Patten on 11-23-2024 AST [Catalytic activity/Vol] 683 U/L High <32 [facility] Lipaseon 11-23-2024 Lipase [Catalytic activity/Vol] 267 U/L High 13-75 [facility] Comment on above: Result Comment: Elise brunson note:LIPASE revised reference range effective 22.New Lipase methodology. Expected to produce lower valuesthan the previous assay method.NEW Reference Range: 13 - 75 U/L Performed By: #### L 100.0100, L500.4050, L501.2450 ####[facility] [address] [place], [place], [address] Lipase measurementOrdered By : Yenifer Patten on 11-23-2024 Lipase [Catalytic activity/Vol] 267 U/L High 13-75 [facility] Comment on above: Please note:LIPASE r evised reference range effective 22. New Lipase methodology. Expected to produce lower values than the previous assay method. NEW Reference Range: 13 - 75 U/L Lymphocytes Auto (Unsp spec) [#/Vol]Ordered By: Yenifer Patten on 11-23-2024 Lymphocytes (Bld) [#/Vol] 0.69 10*3/uL Low 0.83-4.51 [facility] Lymphocytes/100 WBC Auto (Un sp spec)Ordered By: Yenifer Patten on 11-23-2024 Lymphocytes/100 WBC (Bld) 7.2 % Low 19-41 [facility] MCV (mean corpuscular volume ) determinationOrdered By: Yenifer Patten on 11-23-2024 MCV (RBC) [Entitic vol] 86.5 fL 81-99 [facility] Mean corpuscular hemoglobin (MCH) determinationOrdered By: Yenifer Patten on 11-23-2024 MCH (RBC) [Entitic mass] 29.8 pg 27.0-32.0 [facility] Mean corpuscular hemoglobin concentration (MCHC) determinationOrdered By: Yenifer Patten on 11-23-2024 MCHC (RBC) [Mass/Vol] 34.5 g/dL 32-36 [facility] Mean platelet volume determi nationOrdered By: Yenifer Patten on 11-23-2024 Platelet mean volume (Bld) [Entitic vol] 11.5 fL 6.2-12.0 [facility] Monocyte percentageOrdered B y: Yenifer Patten on 11-23-2024 Monocytes/100 WBC (Bld) 13.0 % High 0-10 [facility] Neutrophil percentageOrdered By: Yenifer Patten on 11-23-2024 Neutrophils/100 WBC (Bld) 78.6 % High 47-70 [facility] No Panel InformationOrdered By: Yenifer Patten on 11-23-2024 683 U/L High <32 [facility] Nucleated red blood cell per centageOrdered By: Yenifer Patten on 11-23-2024 Nucleated RBC/100 WBC (Bld) [Ratio] 0.3 % 0-5 [facility] Platelet countOrdered By: Kristin Patten on 11-23-2024 Platelets (Bld) [#/Vol] 348 10*3/uL 150-450 [facility] Potassium (Unsp spec) [Mass/ Vol]Ordered By: Yenifer Patten on 11-23-2024 Potassium [Moles/Vol] 4.3 mmol/L 3.3-5.1 [facility] Potassium measurement (mass/ volume)Ordered By: Yenifer Patten on 11-23-2024 Potassium (Unsp spec) [Mass/Vol] 4.3 mmol/L 3.3-5.1 [facility] RBC Auto (Bld) [#/Vol]Ordere d By: Yenifer Patten on 11-23-2024 RBC (Bld) [#/Vol] 4.80 10*6/uL 4.2-5.4 [facility] Serum creatinine measurement (mass/volume)Ordered By: Yenifer Patten on 11-23-2024 Creatinine [Mass/Vol] 1.22 mg/dL High 0.70-1.20 [facility] Serum globulin measurementOr dered By: Yenifer Patten on 11-23-2024 Globulin (S) [Mass/Vol] 3.2 g/dL 2.2-4.2 [facility] Serum glucose measurement (m ass/volume)Ordered By: Yenifer Patten on 11-23-2024 Glucose [Mass/Vol] 118 mg/dL High 70-99 [facility] Serum or plasma alanine encarnacion otransferase (ALT) measurementOrdered By: Yenifer Patten on 11-23-2024 ALT [Catalytic activity/Vol] 159 U/L High <35 [facility] Serum or plasma albumin jayro urement (mass/volume)Ordered By: Yenifer Patten on 11-23-2024 Albumin [Mass/Vol] 3.5 g/dL 3.4-4.8 [facility] Serum or plasma albumin/glob ulin mass ratioOrdered By: Yenifer Patten on 11-23-2024 Albumin/Globulin [Mass ratio] 1.1 {ratio} 0.9-2.4 [facility] Serum or plasma alkaline lukas sphatase measurementOrdered By: Yenifer Patten on 11-23-2024 ALP [Catalytic activity/Vol] 603 U/L High 35-104 [facility] Serum or plasma calcium jayro urement (mass/volume)Ordered By: Yenifer Patten on 11-23-2024 Calcium [Mass/Vol] 11.8 mg/dL High 7.6-11.0 [facility] Serum or plasma urea nitroge n measurement (mass/volume)Ordered By: Yenifer Patten on 11-23-2024 Urea nitrogen [Mass/Vol] 22 mg/dL High 4-19 [facility] Sodium levelOrdered By: Yenifer Patten on 11-23-2024 Sodium [Moles/Vol] 139 mmol/L 133-145 [facility] Total proteinOrdered By: Laura Patten on 11-23-2024 Protein [Mass/Vol] 6.8 g/dL 5.9-8.4 [facility] White blood cell (WBC) count Ordered By: Yenifer Patten on 11-23-2024 WBC (Bld) [#/Vol] 9.6 10*3/uL 4.4-11.0 [facility] BUN/creatinine ratioOrdered By: Mae Horton on 11-14-2024 Urea nitrogen/Creatinine [Mass ratio] 10.6 mg/mg 10-20 [facility] Basic Metabolic Profile (BMP )on 11-14-2024 Anion gap [Moles/Vol] 13 mmol/L Normal 5-15 [facility] Comment on above: Performed By: #### L 500.2500, L100.0500 ####[facility] [address] [facility] [place], [address] BUN/CRE 10.6 RATIO Normal 10- [facility] Comment on above: Performed By: #### L 500.2500, L100.0500 ####[facility] [address] [place], [address] Calcium [Mass/Vol] 10.1 mg/dL Normal 7.6-11.0 [facility] Comment on above: Performed By: #### L 500.2500, L100.0500 ####[facility] [address] [place], [address] Chloride [Moles/Vol] 105 mmol/L Normal 96-108 [facility] Comment on above: Performed By: #### L 500.2500, L100.0500 ####[facility] [address] [place], [address] CO2 [Moles/Vol] 20.3 mmol/L Low 22.0-29.0 [facility] Comment on above: Performed By: #### L 500.2500, L100.0500 ####[facility] [address] [place], [address] Creatinine [Mass/Vol] 0.91 mg/dL Normal 0.70-1.20 [facility] Comment on above: Performed By: #### L 500.2500, L100.0500 ####[facility] [address] [place], [address] ECRCL 54.89 ml/min Normal [facility] Comment on above: Performed By: #### L 500.2500, L100.0500 ####[facility] [address] [place], [address] GFR/1.73 sq M.predicted among non-blacks MDRD (S/P/Bld) [Vol rate/Area] 68 mL/min/{1.73_m2} Normal >60 [facility] Comment on above: Result Comment: mL/m in/1.73m2 CKD-EPI Creatinine Equation (2020) Performed By: #### L 500.2500, L100.0500 ####[facility] [address] [place], [address] Glucose [Mass/Vol] 95 mg/dL Normal 70-99 [facility] Comment on above: Performed By: #### L 500.2500, L100.0500 ####[facility] [address] [place], [address] Potassium [Moles/Vol] 4.2 mmol/L Normal 3.3-5.1 [facility] Comment on above: Performed By: #### L 500.2500, L100.0500 ####[facility] [address] [place], [address] Sodium [Moles/Vol] 139 mmol/L Normal 133-145 [facility] Comment on above: Performed By: #### L 500.2500, L100.0500 ####[facility] [address] [place], [address] Urea nitrogen [Mass/Vol] 10 mg/dL Normal 4-19 [facility] Comment on above: Performed By: #### L 500.2500, L100.0500 ####[facility] [address] [place], [address] Biopsy/Inj or Needle Placeme nton 11-14-2024 Biopsy/Inj or Needle Placement Normal [facility] [facility] CBC-Complete Blood Cnt No Di ffon 11-14-2024 Erythrocyte distribution width (RBC) [Ratio] 15.8 % High 11.6-14.6 [facility] Comment on above: Performed By: #### L 500.2500, L100.0500 ####[facility] [address] [place], [address] Hematocrit (Bld) [Volume fraction] 37.1 % Normal 37-47 [facility] Comment on above: Performed By: #### L 500.2500, L100.0500 ####[facility] [address] [place], [address] Hemoglobin (Bld) [Mass/Vol] 12.0 g/dL Normal 12.0-15.0 [facility] Comment on above: Performed By: #### L 500.2500, L100.0500 ####[facility] [address] [place], [address] MCH (RBC) [Entitic mass] 28.8 pg Normal 27.0-32.0 [facility] Comment on above: Performed By: #### L 500.2500, L100.0500 ####[facility] [address] [place], [id number] MCHC (RBC) [Mass/Vol] 32.3 g/dL Normal 32-36 [facility] Comment on above: Performed By: #### L 500.2500, L100.0500 ####[facility] [address] [place], [id number] MCV (RBC) [Entitic vol] 89.0 fL Normal 81-99 [facility] Comment on above: Performed By: #### L 500.2500, L100.0500 ####[facility] [address] [place], [address] Platelet mean volume (Bld) [Entitic vol] 12.0 fL Normal 6.2-12.0 [facility] Comment on above: Performed By: #### L 500.2500, L100.0500 ####[facility] [address] [place], [address] Platelets (Bld) [#/Vol] 275 10*3/uL Normal 150-450 [facility] Comment on above: Performed By: #### L 500.2500, L100.0500 ####[facility] [address] [place], [address] RBC (Bld) [#/Vol] 4.17 10*6/uL Low 4.2-5.4 [facility] Comment on above: Performed By: #### L 500.2500, L100.0500 ####[facility] [address] [place], [address] RDW SD 50.9 fl High 35.1-43.9 [facility] Comment on above: Performed By: #### L 500.2500, L100.0500 ####[facility] [address] [place], [address] WBC (Bld) [#/Vol] 7.2 10*3/uL Normal 4.4-11.0 [facility] Comment on above: Performed By: #### L 500.2500, L100.0500 ####[facility] [address] [place], [address] Carbon dioxide measurementOr dered By: Mae Horton on 11-14-2024 CO2 [Moles/Vol] 20.3 mmol/L Low 22.0-29.0 [facility] Chloride measurementOrdered By: Mae Horton on 11-14-2024 Chloride [Moles/Vol] 105 mmol/L 96-108 [facility] Erythrocyte distribution wid th ratioOrdered By: Mae Horton on 11-14-2024 Erythrocyte distribution width (RBC) [Ratio] 15.8 % High 11.6-14.6 [facility] Erythrocyte distribution wid th standard deviationOrdered By: Mae Horton on 11-14-2024 Erythrocyte distribution width (RBC) [Entitic vol] 50.9 fL High 35.1-43.9 [facility] Erythrocyte distribution width (RBC) [Ratio] 50.9 fl High 35.1-43.9 [facility] Estimation of creatinine lubna aranceOrdered By: Mae Horton on 11-14-2024 Estimated Creatinine Clearance Calc 54.89 ml/min [facility] GFR/1.73 sq M.predicted mary g non-blacks MDRD (S/P/Bld) [Vol rate/Area]Ordered By: Mae Horton on 11-14-2024 Estimated GFR (MDRD) Non-Af Amer 68 >60 [facility] Comment on above: mL/min/1.73m2 CKD-EP I Creatinine Equation (2020) Glomerular filtration rate ( GFR) estimation/1.73 sq m using serum, plasma, or whole bOrdered By: Mae Horton on 11-14-2024 GFR/1.73 sq M.predicted among non-blacks MDRD (S/P/Bld) [Vol rate/Area] 68 mL/min/{1.73_m2} >60 [facility] Comment on above: mL/min/1.73m2 CKD-EP I Creatinine Equation (2020) Hematocrit Auto (Bld) [Volum e fraction]Ordered By: Mae Horton on 11-14-2024 Hematocrit (Bld) [Volume fraction] 37.1 % 37-47 [facility] Hemoglobin measurementOrdere d By: Mae Horton on 11-14-2024 Hemoglobin (Bld) [Mass/Vol] 12.0 g/dL 12.0-15.0 [facility] Immunohistochemical Stainson 11-14-2024 Immunohistochemical Stains Normal [facility] Comment on above: Performed By: #### P IMHI ####[facility] [address] [place], [address] MCV (mean corpuscular volume ) determinationOrdered By: Mae Horton on 11-14-2024 MCV (RBC) [Entitic vol] 89.0 fL 81-99 [facility] Mean corpuscular hemoglobin (MCH) determinationOrdered By: Mae Horton on 11-14-2024 MCH (RBC) [Entitic mass] 28.8 pg 27.0-32.0 [facility] Mean corpuscular hemoglobin concentration (MCHC) determinationOrdered By: Mae Horton on 11-14-2024 MCHC (RBC) [Mass/Vol] 32.3 g/dL 32-36 [facility] Mean platelet volume determi nationOrdered By: Mae Horton on 11-14-2024 Platelet mean volume (Bld) [Entitic vol] 12.0 fL 6.2-12.0 [facility] Platelet countOrdered By: Kassie Horton on 11-14-2024 Platelets (Bld) [#/Vol] 275 10*3/uL 150-450 [facility] RBC Auto (Bld) [#/Vol]Ordere d By: Mae Horton on 11-14-2024 RBC (Bld) [#/Vol] 4.17 10*6/uL Low 4.2-5.4 [facility] Serum creatinine measurement (mass/volume)Ordered By: Mae Horton on 11-14-2024 Creatinine [Mass/Vol] 0.91 mg/dL 0.70-1.20 [facility] Serum glucose measurement (m ass/volume)Ordered By: Mae Horton on 11-14-2024 Glucose [Mass/Vol] 95 mg/dL 70-99 [facility] Serum or plasma anion gap de termination (moles/volume)Ordered By: Mae Horton on 11-14-2024 Anion gap [Moles/Vol] 13 mmol/L 5-15 [facility] Serum or plasma calcium jayro urement (mass/volume)Ordered By: Mae Horton on 11-14-2024 Calcium [Mass/Vol] 10.1 mg/dL 7.6-11.0 [facility] Serum or plasma potassium me asurementOrdered By: Mae Horton on 11-14-2024 Potassium [Moles/Vol] 4.2 mmol/L 3.3-5.1 [facility] Serum or plasma sodium measu rement (moles/volume)Ordered By: Mae Horton on 11-14-2024 Sodium [Moles/Vol] 139 mmol/L 133-145 [facility] Serum or plasma urea nitroge n measurement (mass/volume)Ordered By: Mae Horton on 11-14-2024 Urea nitrogen [Mass/Vol] 10 mg/dL 4-19 [facility] White blood cell (WBC) count Ordered By: Mae Horton on 11-14-2024 WBC (Bld) [#/Vol] 7.2 10*3/uL 4.4-11.0 [facility] 12 Lead EKGon 11-13-2024 12 Lead EKG Normal [facility] Absolute lymphocyte countOrd ered By: Mae Horton on 11-13-2024 Lymphocytes Auto (Unsp spec) [#/Vol] 1.02 10*3/uL 0.83-4.51 [facility] Absolute neutrophil countOrd ered By: Mae Horton on 11-13-2024 Neutrophils (Bld) [#/Vol] 4.2 10*3/uL 2.0-7.7 [facility] Automated lymphocyte count a s percentage of total leukocytesOrdered By: Mae Horton on 11-13-2024 Lymphocytes/100 WBC Auto (Unsp spec) 16.3 % Low 19-41 [facility] Basophil percentageOrdered B y: Mae Horton on 11-13-2024 Basophils/100 WBC (Bld) 0.8 % 0-1 [facility] Bilirubin, totalOrdered By: Mae Horton on 11-13-2024 Bilirubin [Mass/Vol] 0.84 mg/dL 0.00-1.30 [facility] CBC W/Diff, Automatedon 10-19 Absolute Lymph 1.02 X10 3/uL Normal 0.83-4.51 [facility] Comment on above: Performed By: #### L 501.9520, L501.5200, L501.2300, L100.0100, L500.4050 ####[facility] [address] [place], [address] Absolute Neut 4.2 X10 3/uL Normal 2.0-7.7 [facility] Comment on above: Performed By: #### L 501.9520, L501.5200, L501.2300, L100.0100, L500.4050 ####[facility] [address] [place], [address] Basophils/100 WBC (Bld) 0.8 % Normal 0-1 [facility] Comment on above: Performed By: #### L 501.9520, L501.5200, L501.2300, L100.0100, L500.4050 ####[facility] [address] [place], [address] Eosinophils/100 WBC (Bld) 0.6 % Normal 0-5 [facility] Comment on above: Performed By: #### L 501.9520, L501.5200, L501.2300, L100.0100, L500.4050 ####[facility] [address] [place], [address] Erythrocyte distribution width (RBC) [Ratio] 15.3 % High 11.6-14.6 [facility] Comment on above: Performed By: #### L 501.9520, L501.5200, L501.2300, L100.0100, L500.4050 ####[facility] [address] [place], [address] Hematocrit (Bld) [Volume fraction] 35.9 % Low 37-47 [facility] Comment on above: Performed By: #### L 501.9520, L501.5200, L501.2300, L100.0100, L500.4050 ####[facility] [address] [place], [address] Hemoglobin (Bld) [Mass/Vol] 11.7 g/dL Low 12.0-15.0 [facility] Comment on above: Performed By: #### L 501.9520, L501.5200, L501.2300, L100.0100, L500.4050 ####[facility] [address] [place], [address] IG% 0.300 Normal 0.0-0.9 [facility] Comment on above: Result Comment: IG% - Immature Granulocytes (promyelocytes, myelocytes andmetamyelocytes) > 1% indicates that a LEFT SHIFT is Present. Performed By: #### L 501.9520, L501.5200, L501.2300, L100.0100, L500.4050 ####[facility] [address] [place], [address] Lymphocytes/100 WBC (Bld) 16.3 % Low 19-41 [facility] Comment on above: Performed By: #### L 501.9520, L501.5200, L501.2300, L100.0100, L500.4050 ####[facility] [address] [place], [address] MCH (RBC) [Entitic mass] 28.9 pg Normal 27.0-32.0 [facility] Comment on above: Performed By: #### L 501.9520, L501.5200, L501.2300, L100.0100, L500.4050 ####[facility] [address] [place], [address] MCHC (RBC) [Mass/Vol] 32.6 g/dL Normal 32-36 [facility] Comment on above: Performed By: #### L 501.9520, L501.5200, L501.2300, L100.0100, L500.4050 ####[facility] [address] [place], [address] MCV (RBC) [Entitic vol] 88.6 fL Normal 81-99 [facility] Comment on above: Performed By: #### L 501.9520, L501.5200, L501.2300, L100.0100, L500.4050 ####[facility] [address] [place], [address] Monocytes/100 WBC (Bld) 14.7 % High 0-10 [facility] Comment on above: Performed By: #### L 501.9520, L501.5200, L501.2300, L100.0100, L500.4050 ####[facility] [address] [place], [address] Neutrophils/100 WBC (Bld) 67.3 % Normal 47-70 [facility] Comment on above: Performed By: #### L 501.9520, L501.5200, L501.2300, L100.0100, L500.4050 ####[facility] [address] [place], [address] Nucleated RBC (Bld) [#/Vol] 0 10*3/uL Normal 0-5 [facility] Comment on above: Performed By: #### L 501.9520, L501.5200, L501.2300, L100.0100, L500.4050 ####[facility] [address] [place], [address] Platelet mean volume (Bld) [Entitic vol] 11.2 fL Normal 6.2-12.0 [facility] Comment on above: Performed By: #### L 501.9520, L501.5200, L501.2300, L100.0100, L500.4050 ####[facility] [address] [place], [address] Platelets (Bld) [#/Vol] 249 10*3/uL Normal 150-450 [facility] Comment on above: Performed By: #### L 501.9520, L501.5200, L501.2300, L100.0100, L500.4050 ####[facility] [address] [place], [address] RBC (Bld) [#/Vol] 4.05 10*6/uL Low 4.2-5.4 [facility] Comment on above: Performed By: #### L 501.9520, L501.5200, L501.2300, L100.0100, L500.4050 ####[facility] [address] [place], [address] RDW SD 49.1 fl High 35.1-43.9 [facility] Comment on above: Performed By: #### L 501.9520, L501.5200, L501.2300, L100.0100, L500.4050 ####[facility] [address] [place], [address] WBC (Bld) [#/Vol] 6.3 10*3/uL Normal 4.4-11.0 [facility] Comment on above: Performed By: #### L 501.9520, L501.5200, L501.2300, L100.0100, L500.4050 ####[facility] [address] [place], [address] Comprehensive Metabolic [facility] 11-13-2024 Albumin [Mass/Vol] 3.5 g/dL Normal 3.4-4.8 [facility] Comment on above: Performed By: #### L 501.9520, L501.5200, L501.2300, L100.0100, L500.4050 ####[facility] [address] [place], [address] Albumin/Globulin [Mass ratio] 1.7 {ratio} Normal 0.9-2.4 [facility] Comment on above: Performed By: #### L 501.9520, L501.5200, L501.2300, L100.0100, L500.4050 ####[facility] [address] [place], [address] ALK PHOS 422 U/L High 35-104 [facility] Comment on above: Performed By: #### L 501.9520, L501.5200, L501.2300, L100.0100, L500.4050 ####[facility] [address] [place], [address] ALT [Catalytic activity/Vol] 133 U/L High <=34 [facility] Comment on above: Performed By: #### L 501.9520, L501.5200, L501.2300, L100.0100, L500.4050 ####[facility] [address] [place], [address] Anion gap [Moles/Vol] 12 mmol/L Normal 5-15 [facility] Comment on above: Performed By: #### L 501.9520, L501.5200, L501.2300, L100.0100, L500.4050 ####[facility] [address] [place], [address] AST [Catalytic activity/Vol] 462 U/L High <=31 [facility] Comment on above: Performed By: #### L 501.9520, L501.5200, L501.2300, L100.0100, L500.4050 ####[facility] [address] [place], [address] Bilirubin [Mass/Vol] 0.84 mg/dL Normal 0.00-1.30 [facility] Comment on above: Performed By: #### L 501.9520, L501.5200, L501.2300, L100.0100, L500.4050 ####[facility] [address] [place], [address] BUN/CRE 12.3 RATIO Normal 10-20 [facility] Comment on above: Performed By: #### L 501.9520, L501.5200, L501.2300, L100.0100, L500.4050 ####[facility] [address] [place], [address] Calcium [Mass/Vol] 9.9 mg/dL Normal 7.6-11.0 [facility] Comment on above: Performed By: #### L 501.9520, L501.5200, L501.2300, L100.0100, L500.4050 ####[facility] [address] [place], [address] Chloride [Moles/Vol] 105 mmol/L Normal 96-108 [facility] Comment on above: Performed By: #### L 501.9520, L501.5200, L501.2300, L100.0100, L500.4050 ####[facility] [address] [place], [address] CO2 [Moles/Vol] 21.4 mmol/L Low 22.0-29.0 [facility] Comment on above: Performed By: #### L 501.9520, L501.5200, L501.2300, L100.0100, L500.4050 ####[facility] [address] [place], [address] Creatinine [Mass/Vol] 0.8 mg/dL Normal 0.6-1.0 [facility] Comment on above: Performed By: #### L 501.9520, L501.5200, L501.2300, L100.0100, L500.4050 ####[facility] [address] [place], [address] ECRCL 62.02 ml/min Normal [facility] Comment on above: Performed By: #### L 501.9520, L501.5200, L501.2300, L100.0100, L500.4050 ####[facility] [address] [place], [address] GFR/1.73 sq M.predicted among non-blacks MDRD (S/P/Bld) [Vol rate/Area] 74 mL/min/{1.73_m2} Normal >60 [facility] Comment on above: Result Comment: mL/m in/1.73m2 CKD-EPI Creatinine Equation (2020) Performed By: #### L 501.9520, L501.5200, L501.2300, L100.0100, L500.4050 ####[facility] [address] [place], [address] Globulin (S) [Mass/Vol] 2.0 g/dL Low 2.2-4.2 [facility] Comment on above: Performed By: #### L 501.9520, L501.5200, L501.2300, L100.0100, L500.4050 ####[facility] [address] [place], [address] Glucose [Mass/Vol] 90 mg/dL Normal 70-99 [facility] Comment on above: Performed By: #### L 501.9520, L501.5200, L501.2300, L100.0100, L500.4050 ####[facility] [address] [place], [address] Potassium [Moles/Vol] 4.3 mmol/L Normal 3.3-5.1 [facility] Comment on above: Performed By: #### L 501.9520, L501.5200, L501.2300, L100.0100, L500.4050 ####[facility] [address] [place], [address] Sodium [Moles/Vol] 138 mmol/L Normal 133-145 [facility] Comment on above: Performed By: #### L 501.9520, L501.5200, L501.2300, L100.0100, L500.4050 ####[facility] [address] [place], [address] T PROT 5.5 g/dL Low 5.9-8.4 [facility] Comment on above: Performed By: #### L 501.9520, L501.5200, L501.2300, L100.0100, L500.4050 ####[facility] [address] [place], [address] Urea nitrogen [Mass/Vol] 10 mg/dL Normal 4-19 [facility] Comment on above: Performed By: #### L 501.9520, L501.5200, L501.2300, L100.0100, L500.4050 ####[facility] [address] [place], [address] ENTERIC PATHOGEN PANEL STOOL on 11-13-2024 EP PANEL Normal [facility] Comment on above: Performed By: #### M 100.7900, M100.637 ####[facility] [address] [place], [address] Eosinophil percentageOrdered By: Mae Horton on 11-13-2024 Eosinophils/100 WBC (Bld) 0.6 % 0-5 [facility] Immature granulocytes/100 WB C Auto (Bld)Ordered By: Mae Horton on 11-13-2024 Immature granulocytes/100 WBC (Bld) 0.300 % 0.0-0.9 [facility] Comment on above: IG% - Immature Granu locytes (promyelocytes, myelocytes and metamyelocytes) > 1% indicates that a LEFT SHIFT is Present. Laboratory - Chemistry and C hemistry - challengeOrdered By: Mae Horton on 11-13-2024 AST [Catalytic activity/Vol] 462 U/L High <32 [facility] Lymphocytes Auto (Unsp spec) [#/Vol]Ordered By: Mae Horton on 11-13-2024 Lymphocytes (Bld) [#/Vol] 1.02 10*3/uL 0.83-4.51 [facility] Lymphocytes/100 WBC Auto (Un sp spec)Ordered By: Mae Horton on 11-13-2024 Lymphocytes/100 WBC (Bld) 16.3 % Low 19-41 [facility] Magnesiumon 11-13-2024 Magnesium [Mass/Vol] 1.7 mg/dL Normal 1.5-2.2 [facility] Comment on above: Performed By: #### L 501.9520, L501.5200, L501.2300, L100.0100, L500.4050 ####[facility] [address] [facility] [place], [address] Magnesium (Unsp spec) [Mass/ Vol]Ordered By: Mae Horton on 11-13-2024 Magnesium [Mass/Vol] 1.7 mg/dL 1.5-2.2 [facility] Magnesium measurement (mass/ volume)Ordered By: Mae Horton on 11-13-2024 Magnesium (Unsp spec) [Mass/Vol] 1.7 mg/dL 1.5-2.2 [facility] Monocyte percentageOrdered B y: Mae Horton on 11-13-2024 Monocytes/100 WBC (Bld) 14.7 % High 0-10 [facility] Neutrophil percentageOrdered By: Mae Horton on 11-13-2024 Neutrophils/100 WBC (Bld) 67.3 % 47-70 [facility] No Panel InformationOrdered By: Mae Horton on 11-13-2024 462 U/L High <32 [facility] Nucleated red blood cell per centageOrdered By: Mae Horton on 11-13-2024 Nucleated RBC/100 WBC (Bld) [Ratio] 0 % 0-5 [facility] Phosphoruson 11-13-2024 Phosphate [Mass/Vol] 2.9 mg/dL Normal 2.7-4.5 [facility] Comment on above: Performed By: #### L 501.9520, L501.5200, L501.2300, L100.0100, L500.4050 ####[facility] [address] [place], [place], [address] Serum globulin measurementOr dered By: Mae Horton on 11-13-2024 Globulin (S) [Mass/Vol] 2.0 g/dL Low 2.2-4.2 [facility] Serum or plasma alanine encarnacion otransferase (ALT) measurementOrdered By: Mae Horton on 11-13-2024 ALT [Catalytic activity/Vol] 133 U/L High <35 [facility] Serum or plasma albumin jayro urement (mass/volume)Ordered By: Mae Horton on 11-13-2024 Albumin [Mass/Vol] 3.5 g/dL 3.4-4.8 [facility] Serum or plasma albumin/glob ulin mass ratioOrdered By: Mae Horton on 11-13-2024 Albumin/Globulin [Mass ratio] 1.7 {ratio} 0.9-2.4 [facility] Serum or plasma alkaline lukas sphatase measurementOrdered By: Mae Horton on 11-13-2024 ALP [Catalytic activity/Vol] 422 U/L High 35-104 [facility] Serum phosphorus measurement Ordered By: Mae Horton on 11-13-2024 Phosphorus Level 2.9 mg/dL 2.7-4.5 [facility] TSH DL <= 0.005 mIU/L QnOrde red By: Mae Horton on 11-13-2024 Thyroid Stimulating Hormone (TSH) 3.530 uIU/mL 0.300-4.200 [facility] TSH Qn 3.530 uIU/mL 0.300-4.200 [facility] Thyroid Stim Hormone (TSH)on 11-13-2024 TSH 3.530 uIU/mL Normal 0.300-4.200 [facility] Comment on above: Performed By: #### L 501.9520, L501.5200, L501.2300, L100.0100, L500.4050 ####[facility] [address] [place], [place], [id number] Total proteinOrdered By: Yamel Horton on 11-13-2024 Protein [Mass/Vol] 5.5 g/dL Low 5.9-8.4 [facility] Abdomen/Pelvis W IV Cont ONL Yon 11-12-2024 Abdomen/Pelvis W IV Cont ONLY Normal [facility] Activated partial thrombopla stin time (aPTT) in platelet poor plasma by coagulation aOrdered By: Austin Mack on 11-12-2024 aPTT Coag (PPP) [Time] 26.4 s 24.1-36.2 [facility] Bacteria LM.HPF (Urine sed) [#/Area]Ordered By: Austin Mack on 11-12-2024 Urine Bacteria RARE /hpf None Seen [facility] Bilirubin Test strip Ql (U)O rdered By: Austin Mack on 11-12-2024 Bilirubin Ql (U) 1 mg/dL High Negative [facility] Comment on above: COLOR OF URINE MAY A FFECT DIPSTICK RESULTS. CBC W/Diff, Automatedon 10-19 Absolute Lymph 0.81 X10 3/uL Low 0.83-4.51 [facility] Comment on above: Performed By: #### L 300.3900, L500.4050, L300.4310, L100.0100, L501.2450 ####[facility] [address] [place], [place], [id number] Absolute Neut 5.9 X10 3/uL Normal 2.0-7.7 [facility] Comment on above: Performed By: #### L 300.3900, L500.4050, L300.4310, L100.0100, L501.2450 ####[facility] [address] [place], [address] Basophils/100 WBC (Bld) 0.8 % Normal 0-1 [facility] Comment on above: Performed By: #### L 300.3900, L500.4050, L300.4310, L100.0100, L501.2450 ####[facility] [address] [place], [address] Eosinophils/100 WBC (Bld) 0.3 % Normal 0-5 [facility] Comment on above: Performed By: #### L 300.3900, L500.4050, L300.4310, L100.0100, L501.2450 ####[facility] [address] [place], [address] Erythrocyte distribution width (RBC) [Ratio] 15.1 % High 11.6-14.6 [facility] Comment on above: Performed By: #### L 300.3900, L500.4050, L300.4310, L100.0100, L501.2450 ####[facility] [address] [place], [address] Hematocrit (Bld) [Volume fraction] 41.0 % Normal 37-47 [facility] Comment on above: Performed By: #### L 300.3900, L500.4050, L300.4310, L100.0100, L501.2450 ####[facility] [address] [place], [address] Hemoglobin (Bld) [Mass/Vol] 13.8 g/dL Normal 12.0-15.0 [facility] Comment on above: Performed By: #### L 300.3900, L500.4050, L300.4310, L100.0100, L501.2450 ####[facility] [address] [place], [address] IG% 0.400 Normal 0.0-0.9 [facility] Comment on above: Result Comment: IG% - Immature Granulocytes (promyelocytes, myelocytes andmetamyelocytes) > 1% indicates that a LEFT SHIFT is Present. Performed By: #### L 300.3900, L500.4050, L300.4310, L100.0100, L501.2450 ####[facility] [address] [place], [address] Lymphocytes/100 WBC (Bld) 10.5 % Low 19-41 [facility] Comment on above: Performed By: #### L 300.3900, L500.4050, L300.4310, L100.0100, L501.2450 ####[facility] [address] [place], [address] MCH (RBC) [Entitic mass] 29.4 pg Normal 27.0-32.0 [facility] Comment on above: Performed By: #### L 300.3900, L500.4050, L300.4310, L100.0100, L501.2450 ####[facility] [address] [place], [address] MCHC (RBC) [Mass/Vol] 33.7 g/dL Normal 32-36 [facility] Comment on above: Performed By: #### L 300.3900, L500.4050, L300.4310, L100.0100, L501.2450 ####[facility] [address] [place], [address] MCV (RBC) [Entitic vol] 87.4 fL Normal 81-99 [facility] Comment on above: Performed By: #### L 300.3900, L500.4050, L300.4310, L100.0100, L501.2450 ####[facility] [address] [place], [address] Monocytes/100 WBC (Bld) 12.3 % High 0-10 [facility] Comment on above: Performed By: #### L 300.3900, L500.4050, L300.4310, L100.0100, L501.2450 ####[facility] [address] [place], [address] Neutrophils/100 WBC (Bld) 75.7 % High 47-70 [facility] Comment on above: Performed By: #### L 300.3900, L500.4050, L300.4310, L100.0100, L501.2450 ####[facility] [address] [place], [address] Nucleated RBC (Bld) [#/Vol] 0 10*3/uL Normal 0-5 [facility] Comment on above: Performed By: #### L 300.3900, L500.4050, L300.4310, L100.0100, L501.2450 ####[facility] [address] [place], [address] Platelet mean volume (Bld) [Entitic vol] 11.6 fL Normal 6.2-12.0 [facility] Comment on above: Performed By: #### L 300.3900, L500.4050, L300.4310, L100.0100, L501.2450 ####[facility] [address] [place], [address] Platelets (Bld) [#/Vol] 326 10*3/uL Normal 150-450 [facility] Comment on above: Performed By: #### L 300.3900, L500.4050, L300.4310, L100.0100, L501.2450 ####[facility] [address] [place], [address] RBC (Bld) [#/Vol] 4.69 10*6/uL Normal 4.2-5.4 [facility] Comment on above: Performed By: #### L 300.3900, L500.4050, L300.4310, L100.0100, L501.2450 ####[facility] [address] [place], [address] RDW SD 48.1 fl High 35.1-43.9 [facility] Comment on above: Performed By: #### L 300.3900, L500.4050, L300.4310, L100.0100, L501.2450 ####[facility] [address] [place], [address] WBC (Bld) [#/Vol] 7.7 10*3/uL Normal 4.4-11.0 [facility] Comment on above: Performed By: #### L 300.3900, L500.4050, L300.4310, L100.0100, L501.2450 ####[facility] [address] [place], [address] CNOVon 11-12-2024 CNOV Office Visit (FAMPWS) BETSY RODRIGEZ ([id number]) 1955 F Date Time Provider Department 11/12/24 8:40 AM GIRISH LEMOSPWS During your visit today, we recorded the following information about you: Temperature Pulse Respiration Blood pressure 98.3 degrees 83/minute 16/minute 104/64 Weight 70 kg Girish Lemos MD 11/12/2024 9:17 AM Signed Chief Complaint Patient presents with: Follow Up: 4 week follow up Diarrhea Weight Problem: Weight loss down approx 7 lbs in 1 week Fatigue: weakness Sleep Problem Abdominal Pain: Continues- PET scan completed yesterday HPI Betsy Rodrigez is a 69 year old female who presents here today for Above Complaints. Accompanied today by her . Daughter Yenifer on the phone. Patient recently found to have hepatic masses and left upper lobe mass on CT scans. Has been evaluated by pulmonology Roxann Gomez who recommended PET scan which was completed yesterday. Results not available. Also saw Dr. Robbins on 11/05 who recommended liver biopsy after discussing with IR, but patient did not want to schedule at that time. Today, states that she continues to have bilateral upper abdominal pain up to /, nausea, loss of appetite, watery/loose diarrhea with 4-6 episodes per day, BRBRP with blood on TP, 4 lb weight loss in last week. States she feels warmer today than normal. Eating only 1 small meal per day. Taking zofran for nausea and imodium for diarrhea which is not helping. Has Har[place] for her back which she has been taking for her abdominal pain without much improvement. Needing to take Har[place] more than prescribed. Past medical history, appointments, medications, allergies reviewed. Previous Medical History PAST MEDICAL HISTORY Diagnosis Date Anxiety with depression Chronic back pain Chronic kidney disease (CKD), stage III (moderate) (HCC) Colon polyp tubular adenoma [address] 07/16 to 08/17 DDD (degenerative disc disease), lumbar seeing Dr. Johnson Dysphagia Dr. Stiles Ectopic 1991 GERD (gastroesophageal reflux disease) History of prediabetes Hyperlipidemia Hypertension Hypothyroidism Obesity (BMI 30.0-34.9) Other pulmonary embolism without acute cor pulmonale (HCC) Pneumonia due to [facility] virus Requiring intubation Previous Surgical History PAST SURGICAL HISTORY Procedure Laterality Date APPENDECTOMY 1966 BREAST LUMPECTOMY HX Bilateral BREAST RECONSTRUCTION Right SECTION HX 1973, 1975 CHOLECYSTECTOMY 2016 COLONOSCOPY 2016 repeat in 3 years, Dr. Stiles LYSIS OF ADHESIONS 1978 PAST SURGICAL HISTORY OF 1981 tubal reconstruction PAST SURGICAL HISTORY OF 2013 back surgery, microdiscectomy? PAST SURGICAL HISTORY OF Bilateral vericose vein stripping PAST SURGICAL HISTORY OF Bilateral heel spurs PAST SURGICAL HISTORY OF Bilateral surgery for epicondylitis PAST SURGICAL HISTORY OF cyst removal from eyelids TONSILLECTOMY HX 1957 Family History FAMILY HISTORY Problem Relation Age of Onset Cancer Mother lung Hypertension Mother Cancer Father lung No Known Problems Sister Cancer Brother lung No Known Problems Brother No Known Problems Brother Stroke Maternal Grandmother or [place], patient unsure Coronary Artery Disease Maternal Grandfather Alcohol abuse Paternal Grandfather Patient Allergies ALLERGIES Allergen Reactions Meagan Inhibitors Rash Codeine Vomiting, Other: See Comments Headache Remeron [Mirtazapin* Other: See Comments Fatigue Rgvusha-Hmy-Nmr Red* Myalgia Michie Unknown Zetia [Ezetimibe] Myalgia Current Medications Current Outpatient Medications on File Prior to Visit Medication Sig ondansetron orally disintegrating (ZOFRAN ODT) 4 mg disintegrating tablet Take 1 tablet by mouth every 6 hours as needed for nausea/vomiting. losartan (COZAAR) 50 mg tablet Take 1 tablet by mouth once daily. fluticasone (FLONASE) 50 mcg/actuation nasal spray Use 2 Sprays in each nostril once daily. Rinse mouth after use. levothyroxine (SYNTHROID) 25 mcg tablet Take 1 tablet by mouth once daily. potassium chloride (K-TAB) 10 mEq tablet Take two tablets daily calcium carbonate (CALCIUM 500 ORAL) Take 1,000 mg by mouth once daily. HYDROcodone-acetamin ophen (NORCO) 5-325 mg per tablet Take 1 tablet by mouth every 8 hours as needed for pain. albuterol (PROVENTIL) 2.5 mg /3 mL (0.083 %) nebulizer solution Use 3 mL via nebulizer every 4 hours as needed for Wheezing/Shortness of Breath. Use over 5-15minutes. Omeprazole 40 mg capsule Take 1 capsule by mouth twice daily. gabapentin (NEURONTIN) 400 mg capsule Take 400 mg by mouth three times a day. NEXLETOL 180 mg tablet once daily. (Patient not taking: Reported on 11/05/2024) mv,jaci,iron,mn/folic acid/chol (UUZF-OFVU-LMVKD, PABA, ORAL) Take 1 tablet by mouth once daily. (Patien (more content not included)... Normal [facility] Metabolic Prof florencia 11-12-2024 Albumin [Mass/Vol] 3.9 g/dL Normal 3.4-4.8 [facility] Comment on above: Performed By: #### L 300.3900, L500.4050, L300.4310, L100.0100, L501.2450 ####[facility] [address] [place], [address] Albumin/Globulin [Mass ratio] 1.3 {ratio} Normal 0.9-2.4 [facility] Comment on above: Performed By: #### L 300.3900, L500.4050, L300.4310, L100.0100, L501.2450 ####[facility] [address] [place], [address] ALK PHOS 494 U/L High 35-104 [facility] Comment on above: Performed By: #### L 300.3900, L500.4050, L300.4310, L100.0100, L501.2450 ####[facility] [address] [place], [address] ALT [Catalytic activity/Vol] 142 U/L High <=34 [facility] Comment on above: Performed By: #### L 300.3900, L500.4050, L300.4310, L100.0100, L501.2450 ####[facility] [address] [place], [address] Anion gap [Moles/Vol] 14 mmol/L Normal 5-15 [facility] Comment on above: Performed By: #### L 300.3900, L500.4050, L300.4310, L100.0100, L501.2450 ####[facility] [address] [place], [address] AST [Catalytic activity/Vol] 529 U/L High <=31 [facility] Comment on above: Performed By: #### L 300.3900, L500.4050, L300.4310, L100.0100, L501.2450 ####[facility] [address] [place], [address] Bilirubin [Mass/Vol] 0.97 mg/dL Normal 0.00-1.30 [facility] Comment on above: Performed By: #### L 300.3900, L500.4050, L300.4310, L100.0100, L501.2450 ####[facility] [address] [place], [address] BUN/CRE 19.5 RATIO Normal 10-20 [facility] Comment on above: Performed By: #### L 300.3900, L500.4050, L300.4310, L100.0100, L501.2450 ####[facility] [address] [place], [address] Calcium [Mass/Vol] 10.5 mg/dL Normal 7.6-11.0 [facility] Comment on above: Performed By: #### L 300.3900, L500.4050, L300.4310, L100.0100, L501.2450 ####[facility] [address] [place], [address] Chloride [Moles/Vol] 102 mmol/L Normal 96-108 [facility] Comment on above: Performed By: #### L 300.3900, L500.4050, L300.4310, L100.0100, L501.2450 ####[facility] [address] [place], [address] CO2 [Moles/Vol] 21.8 mmol/L Low 22.0-29.0 [facility] Comment on above: Performed By: #### L 300.3900, L500.4050, L300.4310, L100.0100, L501.2450 ####[facility] [address] [place], [address] Creatinine [Mass/Vol] 0.9 mg/dL Normal 0.6-1.0 [facility] Comment on above: Performed By: #### L 300.3900, L500.4050, L300.4310, L100.0100, L501.2450 ####[facility] [address] [place], [address] ECRCL 54.07 ml/min Normal [facility] Comment on above: Performed By: #### L 300.3900, L500.4050, L300.4310, L100.0100, L501.2450 ####[facility] [address] [place], [address] GFR/1.73 sq M.predicted among non-blacks MDRD (S/P/Bld) [Vol rate/Area] 68 mL/min/{1.73_m2} Normal >60 [facility] Comment on above: Result Comment: mL/m in/1.73m2 CKD-EPI Creatinine Equation (2020) Performed By: #### L 300.3900, L500.4050, L300.4310, L100.0100, L501.2450 ####[facility] [address] [place], [address] Globulin (S) [Mass/Vol] 3.1 g/dL Normal 2.2-4.2 [facility] Comment on above: Performed By: #### L 300.3900, L500.4050, L300.4310, L100.0100, L501.2450 ####[facility] [address] [place], [address] Glucose [Mass/Vol] 102 mg/dL High 70-99 [facility] Comment on above: Performed By: #### L 300.3900, L500.4050, L300.4310, L100.0100, L501.2450 ####[facility] [address] [place], [address] Potassium [Moles/Vol] 4.4 mmol/L Normal 3.3-5.1 [facility] Comment on above: Performed By: #### L 300.3900, L500.4050, L300.4310, L100.0100, L501.2450 ####[facility] [address] [place], [address] Sodium [Moles/Vol] 137 mmol/L Normal 133-145 [facility] Comment on above: Performed By: #### L 300.3900, L500.4050, L300.4310, L100.0100, L501.2450 ####[facility] [address] [place], [address] T PROT 7.0 g/dL Normal 5.9-8.4 [facility] Comment on above: Performed By: #### L 300.3900, L500.4050, L300.4310, L100.0100, L501.2450 ####[facility] [address] [place], [place], [address] Urea nitrogen [Mass/Vol] 18 mg/dL Normal 4-19 [facility] Comment on above: Performed By: #### L 300.3900, L500.4050, L300.4310, L100.0100, L501.2450 ####[facility] [address] [place], [address] Emergency Department Summary on 11-12-2024 Emergency Department Summary Normal [facility] Epithelial cells.squamous LM Ql (Urine sed)Ordered By: Austin Mack on 11-12-2024 Epithelial cells.squamous LM.HPF (Urine sed) [#/Area] 0 /[HPF] 5-10 [facility] Glucose Ql (U)Ordered By: Kelton Mack on 11-12-2024 Urine Glucose (UA) Normal mg/dl Normal [facility] H AND P Exam - Hospitaliston 11-12-2024 H&P Exam - Hospitalist Normal [facility] normalized rat io (INR) calculationOrdered By: Austin Mack on 11-12-2024 INR Coag (Bld) [Relative time] 1.1 {INR} [facility] Ketones Test strip Ql (U)Ord ered By: Austin Mack on 11-12-2024 Ketones Ql (U) 5 mg/dl High Negative [facility] Lipaseon 11-12-2024 Lipase [Catalytic activity/Vol] 154 U/L High 13-75 [facility] Comment on above: Result Comment: Elise brunson note:LIPASE revised reference range effective 22.New Lipase methodology. Expected to produce lower valuesthan the previous assay method.NEW Reference Range: 13 - 75 U/L Performed By: #### L 300.3900, L500.4050, L300.4310, L100.0100, L501.2450 ####[facility] [address] [place], [address] Lipase measurementOrdered By : Austin Mack on 11-12-2024 Lipase [Catalytic activity/Vol] 154 U/L High 13-75 [facility] Comment on above: Please note:LIPASE r evised reference range effective 22. New Lipase methodology. Expected to produce lower values than the previous assay method. NEW Reference Range: 13 - 75 U/L Lower GI hemoglobin IA Ql (S tl)Ordered By: Mae Horton on 11-12-2024 Stool Occult Blood (MAXWELL) Positive Abnormal [facility] Microscopic analysis of urin e for red blood cells (RBC)Ordered By: Austin Mack on 11-12-2024 Microscopic analysis of urine for red blood cells (RBC) 0 SEEN /hpf 0-5 [facility] Urine RBC 0 SEEN /hpf 0-5 [facility] Mucus LM Ql (Urine sed)Order ed By: Austin Mack on 11-12-2024 Mucus Ql (Urine sed) 0 SEEN /hpf [facility] Nitrite Test strip Ql (U)Ord ered By: Austin Mack on 11-12-2024 Nitrite Ql (U) Negative Negative [facility] Partial Thromboplast Timeon 11-12-2024 aPTT Coag (Bld) [Time] 26.4 s Normal 24.1-36.2 [facility] Comment on above: Performed By: #### L 300.3900, L500.4050, L300.4310, L100.0100, L501.2450 ####[facility] [address] [place], [address] Protein Test strip Ql (U)Ord ered By: Austin Mack on 11-12-2024 Protein Ql (U) 30 mg/dl High Negative [facility] Prothrombin Time w/INRon INR Coag (PPP) [Relative time] 1.1 {INR} Normal [facility] Comment on above: Performed By: #### L 300.3900, L500.4050, L300.4310, L100.0100, L501.2450 ####[facility] [address] [place], [address] PT Coag (PPP) [Time] 14.2 s Normal 11.7-14.9 [facility] Comment on above: Performed By: #### L 300.3900, L500.4050, L300.4310, L100.0100, L501.2450 ####[facility] [address] [place], [address] Prothrombin timeOrdered By: Austin Mack on 11-12-2024 PT Coag (PPP) [Time] 14.2 s 11.7-14.9 [facility] Squamous epithelial cells de tection in urine sediment by light microscopyOrdered By: Austin Mack on 11-12-2024 Epithelial cells.squamous LM Ql (Urine sed) 0-5 SEEN /hpf 5-10 [facility] Stool Occult Blood iFOBon STOB Positive Normal [facility] Comment on above: Performed By: #### M 100.7900, M100.637 ####[facility] [address] [place], [phone] Stool enteric pathogen panel by probe and target amplification methodOrdered By: Mae Horton on 11-12-2024 Enteric Bacteriology [facility] Stool gastrointestinal hemog lobin detection by immunologic methodOrdered By: Mae Horton on 11-12-2024 Lower GI hemoglobin IA Ql (Stl) Positive Abnormal [facility] Urinalysis, Completeon 11-12 BACTERIA RARE Normal None Seen [facility] Comment on above: Order Comment: CLEAN CATCH Performed By: #### L 400.0001 ####[facility] [address] [place], [address] EPI,SQUAMOUS 0-5 SEEN Normal 5-10 [facility] Comment on above: Order Comment: CLEAN CATCH Performed By: #### L 400.0001 ####[facility] [address] [place], [address] RBC 0 SEEN Normal 0-5 [facility] Comment on above: Order Comment: CLEAN CATCH Performed By: #### L 400.0001 ####[facility] [address] [place], [address] WBC 0-5 SEEN Normal 0-5 [facility] Comment on above: Order Comment: CLEAN CATCH Performed By: #### L 400.0001 ####[facility] [address] [place], [address] Mucus Ql (Urine sed) 0 SEEN Normal [facility] Comment on above: Order Comment: CLEAN CATCH Performed By: #### L 400.0001 ####[facility] [address] [place], [address] Urine blood detectionOrdered By: Austin Mack on 11-12-2024 Urine Occult Blood Negative Negative [facility] Urine clarityOrdered By: Stephanie Mack on 11-12-2024 Clarity (U) Clear Clear [facility] Urine color determinationOrd ered By: Austin Mack on 11-12-2024 Color (U) Yellow Yellow [facility] Urine glucose detectionOrder ed By: Austin Mack on 11-12-2024 Glucose Ql (U) Normal mg/dl Normal [facility] Urine leukocyte esterase det ection by dipstickOrdered By: Austin Mack on 11-12-2024 Leukocyte esterase Test strip Ql (U) Negative Negative [facility] Urine pHOrdered By: Austin palumbo on 11-12-2024 pH (U) 6.0 [pH] 5.0 - 8.0 [facility] Urine sediment bacteria coun t by microscopy (number/high power field)Ordered By: Austin Mack on 11-12-2024 Bacteria LM.HPF (Urine sed) [#/Area] RARE /hpf None Seen [facility] Urine specific gravity measu rementOrdered By: Austin Mack on 11-12-2024 Specific gravity (U) [Rel density] 1.015 1.002-1.030 [facility] Urine urobilinogen measureme ntOrdered By: Austin Mack on 11-12-2024 Urobilinogen Ql (U) 1 mg/dl High Normal [facility] Urobilinogen Ql (U)Ordered B y: Austin Mack on 11-12-2024 Urobilinogen (U) [Mass/Vol] 1 mg/dL High Normal [facility] [facility] blood cell countOrdere d By: Austin Mack on 11-12-2024 Urine WBC 0-5 SEEN /hpf 0-5 [facility] White blood cell count 0-5 SEEN /hpf 0-5 [facility] aPTT Coag (PPP) [Time]Ordere d By: Austin Mack on 11-12-2024 aPTT Coag (Bld) [Time] 26.4 s 24.1-36.2 [facility] PET/CT Tumor Base -Thigh Ini ton 11-11-2024 PET/CT Tumor Base -Thigh Init Normal [facility] CNOVSPon 11-05-2024 CNOVSP Visit (SP) Office (PJ) BETSY RODRIGEZ ([id number]) 1955 F Date Time Provider Department 11/05/24 9:00 AM SILAS ROBBINS During your visit today, we recorded the following information about you: Temperature Pulse Blood pressure Weight 98.1 degrees 69/minute 138/78 71.9 kg Height 1.61 m Silas Robbins MD 11/05/2024 9:19 AM Signed HISTORY OF PRESENT ILLNESS: Betsy Rodrigez is a 69 year old female right side pain, not eating as well, weight down about 20 pounds since June [address]24. [address] abdomen shows multiple liver masses Ct chest shows left lung mass We discussed need for biopsy. I reviewed the CT scan with IR, liver lesions are amenable to biopsy CLINICAL IMPRESSION: Lung and liver masses RECOMMENDATION/PLAN: 1. Recommend biopsy of liver. Patient wants to think about it, she' ll call or MyChart if she decides to proceed as recommended Written and verbal health teaching given to patient, patient verbalizes understanding and agrees with treatment plan. PAST MEDICAL HISTORY Diagnosis Date Anxiety with depression Chronic back pain Chronic kidney disease (CKD), stage III (moderate) (HCC) Colon polyp tubular adenoma [address] 07/16 to 08/17 DDD (degenerative disc disease), lumbar seeing Dr. Johnson Dysphagia Dr. Stiles Ectopic 1991 GERD (gastroesophageal reflux disease) History of prediabetes Hyperlipidemia Hypertension Hypothyroidism Obesity (BMI 30.0-34.9) Other pulmonary embolism without acute cor pulmonale (HCC) Pneumonia due to [facility] virus Requiring intubation PAST SURGICAL HISTORY Procedure Laterality Date APPENDECTOMY 1966 BREAST LUMPECTOMY HX Bilateral BREAST RECONSTRUCTION Right SECTION HX 1974, 1975 CHOLECYSTECTOMY 2016 COLONOSCOPY 2016 repeat in 3 years, Dr. Stiles LYSIS OF ADHESIONS 1978 PAST SURGICAL HISTORY OF 1981 tubal reconstruction PAST SURGICAL HISTORY OF 2013 back surgery, microdiscectomy? PAST SURGICAL HISTORY OF Bilateral vericose vein stripping PAST SURGICAL HISTORY OF Bilateral heel spurs PAST SURGICAL HISTORY OF Bilateral surgery for epicondylitis PAST SURGICAL HISTORY OF cyst removal from eyelids TONSILLECTOMY HX 195 FAMILY HISTORY Problem Relation Age of Onset Cancer Mother lung Hypertension Mother Cancer Father lung No Known Problems Sister Cancer Brother lung No Known Problems Brother No Known Problems Brother Stroke Maternal Grandmother or [place], patient unsure Coronary Artery Disease Maternal Grandfather Alcohol abuse Paternal Grandfather Social History Tobacco Use Smoking status: Former Current packs/day: 0.00 Average packs/day: 1 pack/day for 49.0 years (49.0 ttl pk-yrs) Types: Cigarettes Start date: 08/14/1967 Quit date: 08/14/2016 Years since quittin.2 Smokeless tobacco: Never Vaping Use Vaping status: Never Used Substance Use Topics Alcohol use: No Drug use: No ALLERGIES: ALLERGIES Allergen Reactions Meagan Inhibitors Rash Codeine Vomiting, Other: See Comments Headache Remeron [Mirtazapin* Other: See Comments Fatigue Vmcmyhm-Djj-Egp Red* Myalgia Michie Unknown Zetia [Ezetimibe] Myalgia CURRENT OUTPATIENT MEDICATIONS: ondansetron orally disintegrating (ZOFRAN ODT) 4 mg disintegrating tablet Take 1 tablet by mouth every 6 hours as needed for nausea/vomiting. losartan (COZAAR) 50 mg tablet Take 1 tablet by mouth once daily. fluticasone (FLONASE) 50 mcg/actuation nasal spray Use 2 Sprays in each nostril once daily. Rinse mouth after use. levothyroxine (SYNTHROID) 25 mcg tablet Take 1 tablet by mouth once daily. potassium chloride (K-TAB) 10 mEq tablet Take two tablets daily calcium carbonate (CALCIUM 500 ORAL) Take 1,000 mg by mouth once daily. HYDROcodone-acetamin ophen (NORCO) 5-325 mg per tablet Take 1 tablet by mouth every 8 hours as needed for pain. Minoxidil 2 % external solution Apply 1 mL to affected area twice daily. albuterol (PROVENTIL) 2.5 mg /3 mL (0.083 %) nebulizer solution Use 3 mL via nebulizer every 4 hours as needed for Wheezing/Shortness of Breath. Use over 5-15minutes. Omeprazole 40 mg capsule Take 1 capsule by mouth twice daily. gabapentin (NEURONTIN) 400 mg capsule Take 400 mg by mouth three times a day. NEXLETOL 180 mg tablet once daily. (Patient not taking: Reported on 11/05/2024) mv,jaci,iron,mn/folic acid/chol (JONV-TYMC-BJANM, PABA, ORAL) Take 1 tablet by mouth once daily. (Patient not taking: Reported on 08/22/2022) REVIEW OF SYSTEMS: GENERAL: No fever, night sweats, weight loss or malaise. All other reviewed and negative other than HPI. PHYSICAL EXAMINATION: VITAL SIGNS: BP 138/78 Pulse 69 Temp (Src) 98.1 (Temporal) Ht 5' 3.386 (1.61m) Wt 158 lb 8 oz (71.9kg) SpO2 95% BMI 27.74 kg/(m2). GENERAL APPEARANCE: Well appearing, in no acute distress, a (more content not included)... Normal [facility] CNPNon 11-05-2024 CNPN Telephone (OCHOAAWS) BETSY RODRIGEZ ([id number]) 1955 F Date Time Provider Department 11/05/24 SILAS ROBBINS During your visit today, we recorded the following information about you: Jen Briggs 11/05/2024 1:57 PM Signed RECOMMENDATION/PLAN: 1. Recommend biopsy of liver. Patient wants to think about it, she' ll call or MyChart if she decides to proceed as recommended Allergies As of Date: 11/05/2024 Noted Allergy Reaction MEAGAN INHIBITORS 10/06/2017 2 - Rash CODEINE 10/06/2017 11 - Vomiting 14 - Other: See Comments Comments: Headache REMERON (MIRTAZAPINE) 01/17/2021 14 - Other: See Comments Comments: Fatigue NMDZLAF-PTX-JXF REDUCTASE INHIBIT*11/14/2017 17 - Myalgia WALNUT 10/06/2017 16 - Unknown ZETIA (EZETIMIBE) 01/17/2021 17 - Myalgia Date Reviewed: 11/05/2024 Reviewed by: Inder Paiz MA - Fully Assessed Prescriptions as of 11/13/2024 - ondansetron orally disintegrating (ZOFRAN ODT) 4 mg disintegrating tablet Take 1 tablet by mouth every 6 hours as needed for nausea/vomiting. - losartan (COZAAR) 50 mg tablet Take 1 tablet by mouth once daily. - fluticasone (FLONASE) 50 mcg/actuation nasal spray Use 2 Sprays in each nostril once daily. Rinse mouth after use. - levothyroxine (SYNTHROID) 25 mcg tablet Take 1 tablet by mouth once daily. - potassium chloride (K-TAB) 10 mEq tablet Take two tablets daily - NEXLETOL 180 mg tablet once daily. - calcium carbonate (CALCIUM 500 ORAL) Take 1,000 mg by mouth once daily. - HYDROcodone-acetamin ophen (NORCO) 5-325 mg per tablet Take 1 tablet by mouth every 8 hours as needed for pain. - mv,jaci,iron,mn/folic acid/chol (YHAZ-PCKF-MOKBJ, PABA, ORAL) Take 1 tablet by mouth once daily. - Minoxidil 2 % external solution Apply 1 mL to affected area twice daily. - albuterol (PROVENTIL) 2.5 mg /3 mL (0.083 %) nebulizer solution Use 3 mL via nebulizer every 4 hours as needed for Wheezing/Shortness of Breath. Use over 5-15minutes. - Omeprazole 40 mg capsule Take 1 capsule by mouth twice daily. - gabapentin (NEURONTIN) 400 mg capsule Take 400 mg by mouth three times a day. Problem List As Of Date 11/05/2024 Noted Resolved Hypertension [I10] Hypothyroidism [E03.9] GERD (gastroesophageal reflux disease) [K21.9] Hyperlipidemia [E78.5] DDD (degenerative disc disease), lumbar [M51.36* Chronic back pain [M54.9, G89.29] Obesity (BMI 30.0-34.9) [E66.811] Anxiety with depression [F41.8] Other acute pulmonary embolism, unspecified whe*01/24/2023 Stage 3 chronic kidney disease (HCC) [N18.30] 02/20/2023 Pulmonary hypertension (HCC) [I27.20] 06/22/2023 Encounter Status:Closed by JEN BRIGGS on 11/13/24 [facility] 11-04-2024 [facility] ELIA,BETSY Lozano ([id number]) 1955 F Date Time Provider Department 11/04/24 GIRISH LEMOS During your visit today, we recorded the following information about you: Terri Dowell RN 11/04/2024 12:18 PM Signed Roxann Gomez CNP [facility] calls and is requesting PCP to call her back about patient. ROSANA Condon Christopher B, MD 11/04/2024 12:26 PM Signed Call is going to directly voicemail. Will call back after seeing next patient. Girish Lemos MD 11/04/2024 12:58 PM Signed Called and spoke with Roxann Gomez who saw patient in office yesterday and they are recommending PET scan for further evaluation and to determine which mass to biopsy. PET scheduled for next week. They will fax records to our office when complete. Discussed she has appointment with oncology tomorrow. I will forward this to Dr. Robbins to review as RAO. Krystin Zimmerman LPN 11/04/2024 5:02 PM Signed Scan on 11/04/2024 1:33 PM by Provider, External, PA-C: Consultation - Pulmonary Allergies As of Date: 11/04/2024 Noted Allergy Reaction MEAGAN INHIBITORS 10/06/2017 2 - Rash CODEINE 10/06/2017 11 - Vomiting 14 - Other: See Comments Comments: Headache REMERON (MIRTAZAPINE) 01/17/2021 14 - Other: See Comments Comments: Fatigue QTVZMRW-SVU-XKW REDUCTASE INHIBIT*11/14/2017 17 - Myalgia WALNUT 10/06/2017 16 - Unknown ZETIA (EZETIMIBE) 01/17/2021 17 - Myalgia Date Reviewed: 10/30/2024 Reviewed by: Viridiana Torres, RT(R) - Fully Assessed Reason for Visit: Return Call Request [[id number]] Prescriptions as of 11/12/2024 - ondansetron orally disintegrating (ZOFRAN ODT) 4 mg disintegrating tablet Take 1 tablet by mouth every 6 hours as needed for nausea/vomiting. - losartan (COZAAR) 50 mg tablet Take 1 tablet by mouth once daily. - fluticasone (FLONASE) 50 mcg/actuation nasal spray Use 2 Sprays in each nostril once daily. Rinse mouth after use. - levothyroxine (SYNTHROID) 25 mcg tablet Take 1 tablet by mouth once daily. - potassium chloride (K-TAB) 10 mEq tablet Take two tablets daily - NEXLETOL 180 mg tablet once daily. - calcium carbonate (CALCIUM 500 ORAL) Take 1,000 mg by mouth once daily. - HYDROcodone-acetamin ophen (NORCO) 5-325 mg per tablet Take 1 tablet by mouth every 8 hours as needed for pain. - mv,jaci,iron,mn/folic acid/chol (UTZL-KCJL-FHHBA, PABA, ORAL) Take 1 tablet by mouth once daily. - Minoxidil 2 % external solution Apply 1 mL to affected area twice daily. - albuterol (PROVENTIL) 2.5 mg /3 mL (0.083 %) nebulizer solution Use 3 mL via nebulizer every 4 hours as needed for Wheezing/Shortness of Breath. Use over 5-15minutes. - Omeprazole 40 mg capsule Take 1 capsule by mouth twice daily. - gabapentin (NEURONTIN) 400 mg capsule Take 400 mg by mouth three times a day. Problem List As Of Date 11/04/2024 Noted Resolved Hypertension [I10] Hypothyroidism [E03.9] GERD (gastroesophageal reflux disease) [K21.9] Hyperlipidemia [E78.5] DDD (degenerative disc disease), lumbar [M51.36* Chronic back pain [M54.9, G89.29] Obesity (BMI 30.0-34.9) [E66.811] Anxiety with depression [F41.8] Other acute pulmonary embolism, unspecified whe*01/24/2023 Stage 3 chronic kidney disease (HCC) [N18.30] 02/20/2023 Pulmonary hypertension (HCC) [I27.20] 06/22/2023 Encounter Status:Closed by TERRI DOWELL on 11/12/24 [facility] 11-03-2024 TAQUERIA Telephone ([employer]) ELIABETSY Lozano ([id number]) 1955 F Date Time Provider Department 11/03/24 SILAS ROBBINS During your visit today, we recorded the following information about you: Jen Briggs 11/03/2024 1:45 PM Signed Patient called earlier today stating she received a call stating not all results are in and she should cancel new patient appt on 11/05. I confirmed with triage that it was not our office that contacted her and to keep office visit as scheduled. Patient just called back stating to cancel new patient appointment. Her daughter wants to reschedule after patient has pet scan at [facility]. Daughter states wait until results from Pet scan and then patient will reschedule. Joyce Cisneros LPN 11/03/2024 2:40 PM Addendum After speaking to Dr. Lee regarding this patient's records, I spoke with the patient and she decided to keep the appointment as scheduled with Dr. Robbins as to not delay her care. Joyce Cisneros LPN Allergies As of Date: 11/03/2024 Noted Allergy Reaction MEAGAN INHIBITORS 10/06/2017 2 - Rash CODEINE 10/06/2017 11 - Vomiting 14 - Other: See Comments Comments: Headache REMERON (MIRTAZAPINE) 01/17/2021 14 - Other: See Comments Comments: Fatigue IOPELIF-XUP-SLI REDUCTASE INHIBIT*11/14/2017 17 - Myalgia WALNUT 10/06/2017 16 - Unknown ZETIA (EZETIMIBE) 01/17/2021 17 - Myalgia Date Reviewed: 10/30/2024 Reviewed by: Viridiana Torres, RT(R) - Fully Assessed Prescriptions as of 11/03/2024 - ondansetron orally disintegrating (ZOFRAN ODT) 4 mg disintegrating tablet Take 1 tablet by mouth every 6 hours as needed for nausea/vomiting. - losartan (COZAAR) 50 mg tablet Take 1 tablet by mouth once daily. - fluticasone (FLONASE) 50 mcg/actuation nasal spray Use 2 Sprays in each nostril once daily. Rinse mouth after use. - levothyroxine (SYNTHROID) 25 mcg tablet Take 1 tablet by mouth once daily. - potassium chloride (K-TAB) 10 mEq tablet Take two tablets daily - NEXLETOL 180 mg tablet once daily. - calcium carbonate (CALCIUM 500 ORAL) Take 1,000 mg by mouth once daily. - HYDROcodone-acetamin ophen (NORCO) 5-325 mg per tablet Take 1 tablet by mouth every 8 hours as needed for pain. - mv,jaci,iron,mn/folic acid/chol (LJHC-CASI-UKPGE, PABA, ORAL) Take 1 tablet by mouth once daily. - Minoxidil 2 % external solution Apply 1 mL to affected area twice daily. - albuterol (PROVENTIL) 2.5 mg /3 mL (0.083 %) nebulizer solution Use 3 mL via nebulizer every 4 hours as needed for Wheezing/Shortness of Breath. Use over 5-15minutes. - Omeprazole 40 mg capsule Take 1 capsule by mouth twice daily. - gabapentin (NEURONTIN) 400 mg capsule Take 400 mg by mouth two times a day. Problem List As Of Date 11/03/2024 Noted Resolved Hypertension [I10] Hypothyroidism [E03.9] GERD (gastroesophageal reflux disease) [K21.9] Hyperlipidemia [E78.5] DDD (degenerative disc disease), lumbar [M51.36* Chronic back pain [M54.9, G89.29] Obesity (BMI 30.0-34.9) [E66.811] Anxiety with depression [F41.8] Other acute pulmonary embolism, unspecified whe*01/24/2023 Stage 3 chronic kidney disease (HCC) [N18.30] 02/20/2023 Pulmonary hypertension (HCC) [I27.20] 06/22/2023 Encounter Status:Closed by JOYCE CISNEROS on 11/03/24 Normal [facility] Pulmonary Visit Reporton Pulmonary Visit Report Normal [facility] 10-31-2024 [facility] Telephone (FAMPWS) ELIABETSY Marta ([id number]) 1955 F Date Time Provider Department 10/31/24 GIRISH LEMOS During your visit today, we recorded the following information about you: Chacho Ambriz LPN 10/31/2024 12:13 PM Signed Pt called to request a copy of the disk for the CT of chest pt had done 10/30/24. Pt has an apt on 11-21-24 at [facility] with Pulmonology. Pt is trying to get this moved up. Please advise pt when the disk is done. 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 [facility] Pt is aware Allergies As of Date: 10/31/2024 Noted Allergy Reaction MEAGAN INHIBITORS 10/06/2017 2 - Rash CODEINE 10/06/2017 11 - Vomiting 14 - Other: See Comments Comments: Headache REMERON (MIRTAZAPINE) 01/17/2021 14 - Other: See Comments Comments: Fatigue HKIHBOU-KEJ-TCT REDUCTASE INHIBIT*11/14/2017 17 - Myalgia WALNUT 10/06/2017 16 - Unknown ZETIA (EZETIMIBE) 01/17/2021 17 - Myalgia Date Reviewed: 10/30/2024 Reviewed by: Viridiana Torres, RT(R) - Fully Assessed Reason for Visit: requesting disk [Other] Prescriptions as of 11/03/2024 - ondansetron orally disintegrating (ZOFRAN ODT) 4 mg disintegrating tablet Take 1 tablet by mouth every 6 hours as needed for nausea/vomiting. - losartan (COZAAR) 50 mg tablet Take 1 tablet by mouth once daily. - fluticasone (FLONASE) 50 mcg/actuation nasal spray Use 2 Sprays in each nostril once daily. Rinse mouth after use. - levothyroxine (SYNTHROID) 25 mcg tablet Take 1 tablet by mouth once daily. - potassium chloride (K-TAB) 10 mEq tablet Take two tablets daily - NEXLETOL 180 mg tablet once daily. - calcium carbonate (CALCIUM 500 ORAL) Take 1,000 mg by mouth once daily. - HYDROcodone-acetamin ophen (NORCO) 5-325 mg per tablet Take 1 tablet by mouth every 8 hours as needed for pain. - mv,jaci,iron,mn/folic acid/chol (VHNQ-QPOS-QPDOO, PABA, ORAL) Take 1 tablet by mouth once daily. - Minoxidil 2 % external solution Apply 1 mL to affected area twice daily. - albuterol (PROVENTIL) 2.5 mg /3 mL (0.083 %) nebulizer solution Use 3 mL via nebulizer every 4 hours as needed for Wheezing/Shortness of Breath. Use over 5-15minutes. - Omeprazole 40 mg capsule Take 1 capsule by mouth twice daily. - gabapentin (NEURONTIN) 400 mg capsule Take 400 mg by mouth two times a day. Problem List As Of Date 10/31/2024 Noted Resolved Hypertension [I10] Hypothyroidism [E03.9] GERD (gastroesophageal reflux disease) [K21.9] Hyperlipidemia [E78.5] DDD (degenerative disc disease), lumbar [M51.36* Chronic back pain [M54.9, G89.29] Obesity (BMI 30.0-34.9) [E66.811] Anxiety with depression [F41.8] Other acute pulmonary embolism, unspecified whe*01/24/2023 Stage 3 chronic kidney disease (HCC) [N18.30] 02/20/2023 Pulmonary hypertension (HCC) [I27.20] 06/22/2023 Encounter Status:Closed by CHACHO AMBRIZ on 11/03/24 [facility] BETSY RODRIGEZ ([id number]) 1955 F Date Time Provider Department 10/30/24 [facility] During your visit today, we recorded the following information about you: Poonam Denise RN 10/30/2024 9:48 AM Signed Patient calling in. States she completed her Chest CT this morning and would like advised as to what she should do next. Informed pt that results will be sent to Dr. Lemos for review, once results are received, and she would be advised then. Patient aware that she will need to see Oncology once CT results received and PCP advises. Poonam Denise RN Allergies As of Date: 10/30/2024 Noted Allergy Reaction MEAGAN INHIBITORS 10/06/2017 2 - Rash CODEINE 10/06/2017 11 - Vomiting 14 - Other: See Comments Comments: Headache REMERON (MIRTAZAPINE) 01/17/2021 14 - Other: See Comments Comments: Fatigue TZCTUHO-REK-OJS REDUCTASE INHIBIT*11/14/2017 17 - Myalgia WALNUT 10/06/2017 16 - Unknown ZETIA (EZETIMIBE) 01/17/2021 17 - Myalgia Date Reviewed: 10/30/2024 Reviewed by: Viridiana Torres, RT(R) - Fully Assessed Reason for Visit: Patient Request [[id number]] Prescriptions as of 10/30/2024 - ondansetron orally disintegrating (ZOFRAN ODT) 4 mg disintegrating tablet Take 1 tablet by mouth every 6 hours as needed for nausea/vomiting. - losartan (COZAAR) 50 mg tablet Take 1 tablet by mouth once daily. - fluticasone (FLONASE) 50 mcg/actuation nasal spray Use 2 Sprays in each nostril once daily. Rinse mouth after use. - levothyroxine (SYNTHROID) 25 mcg tablet Take 1 tablet by mouth once daily. - potassium chloride (K-TAB) 10 mEq tablet Take two tablets daily - NEXLETOL 180 mg tablet once daily. - calcium carbonate (CALCIUM 500 ORAL) Take 1,000 mg by mouth once daily. - HYDROcodone-acetamin ophen (NORCO) 5-325 mg per tablet Take 1 tablet by mouth every 8 hours as needed for pain. - mv,jaci,iron,mn/folic acid/chol (MCYT-ZDMI-OAUJJ, PABA, ORAL) Take 1 tablet by mouth once daily. - Minoxidil 2 % external solution Apply 1 mL to affected area twice daily. - albuterol (PROVENTIL) 2.5 mg /3 mL (0.083 %) nebulizer solution Use 3 mL via nebulizer every 4 hours as needed for Wheezing/Shortness of Breath. Use over 5-15minutes. - Omeprazole 40 mg capsule Take 1 capsule by mouth twice daily. - gabapentin (NEURONTIN) 400 mg capsule Take 400 mg by mouth two times a day. Problem List As Of Date 10/30/2024 Noted Resolved Hypertension [I10] Hypothyroidism [E03.9] GERD (gastroesophageal reflux disease) [K21.9] Hyperlipidemia [E78.5] DDD (degenerative disc disease), lumbar [M51.36* Chronic back pain [M54.9, G89.29] Obesity (BMI 30.0-34.9) [E66.811] Anxiety with depression [F41.8] Other acute pulmonary embolism, unspecified whe*01/24/2023 Stage 3 chronic kidney disease (HCC) [N18.30] 02/20/2023 Pulmonary hypertension (HCC) [I27.20] 06/22/2023 Encounter Status:Closed by POONAM DENISE on 10/30/24 Normal [facility] CT CHEST W IVCONon CT CHEST W IVCON * * *Final Report* * * DATE OF EXAM: Oct 30 2024 8:41AM [facility] 0539 - CT CHEST W IVCON / PROCEDURE REASON: Liver masses * * * * Physician Interpretation * * * * EXAMINATION: CHEST CT WITH CONTRAST CLINICAL HISTORY: New liver masses Technique: Spiral CT acquisition of the chest from the thoracic inlet to the upper abdomen following IV contrast. MQ: [id number]_6 Contrast: 50 mL Omnipaque [address] Radiation dose: Integrated Dose-length product (DLP) for this visit = 217 mGy*cm CT Dose Reduction Employed: Automated exposure control(AEC) and iterative recon Comparison: CT abdomen and pelvis 10/16/2024 RESULT: Limitations: None. Lines, tubes, and devices: None. Lung parenchyma and airways: 2.3 x 1.8 cm irregular perihilar mass in the left upper lobe (7:74). Bilateral coarse reticular opacities. No consolidation. Central airways are patent. Pleural space: No pleural effusion. No pleural thickening. Lower neck, lymph nodes, and mediastinum: The imaged thyroid gland is normal. Enlarged mediastinal and left hilar lymph nodes. Measurements of the largest lymph nodes in the short axis dimension are as follows: *1.7 cm left periaortic lymph node (5:60) *2 cm AP window lymph node (5:60) *1.4 cm left hilar lymph node (5:73) Heart, pericardium, and thoracic vessels: The thoracic aorta and main pulmonary artery are normal in caliber. The cardiac chambers are normal in size. Coronary artery atherosclerotic calcifications are noted, although the study is not optimized for coronary assessment. No pericardial effusion or thickening. Bones and soft tissues: No destructive bone lesion. Degenerative disease of the thoracic spine. Chest wall is unremarkable. Upper abdomen: Again noted are multiple hepatic metastases Localizer images: No additional findings. IMPRESSION: 1. Irregular left upper lobe perihilar mass which could represent a primary lung malignancy or metastatic lesion 2. Mediastinal and left hilar lymphadenopathy Hot Box Operator: [facility] Transcribe Date/Time: Oct 30 2024 9:39A Dictated by : MADHU CORNELL MD This examination was interpreted and the report reviewed and electronically signed by: MADHU CORNELL MD on Oct 30 2024 9:52AM EST [id number] Normal [facility] CT Chest W contrast Rosalino IMPRESSION: 1. Irregular left upper lobe perihilar mass which could represent a primary lung malignancy or metastatic lesion 2. Mediastinal and left hilar lymphadenopathy Hot Box Operator: [facility] Transcribe Date/Time: Oct 30 2024 9:39A Dictated by : MADHU CORNELL MD This examination was interpreted and the report reviewed and electronically signed by: MADHU CORNELL MD on Oct 30 2024 9:52AM EST DIVISION OF RADIOLOGY * * *Final Report* * * DATE OF EXAM: Oct 30 2024 8:41AM [facility] 0539 - CT CHEST W IVCON / PROCEDURE REASON: Liver masses * * * * Physician Interpretation * * * * EXAMINATION: CHEST CT WITH CONTRAST CLINICAL HISTORY: New liver masses Technique: Spiral CT acquisition of the chest from the thoracic inlet to the upper abdomen following IV contrast. MQ: CTCW_6 Contrast: 50 mL Omnipaque [address] Radiation dose: Integrated Dose-length product (DLP) for this visit = 217 mGy*cm CT Dose Reduction Employed: Automated exposure control(AEC) and iterative recon Comparison: CT abdomen and pelvis 10/16/2024 RESULT: Limitations: None. Lines, tubes, and devices: None. Lung parenchyma and airways: 2.3 x 1.8 cm irregular perihilar mass in the left upper lobe (7:74). Bilateral coarse reticular opacities. No consolidation. Central airways are patent. Pleural space: No pleural effusion. No pleural thickening. Lower neck, lymph nodes, and mediastinum: The imaged thyroid gland is normal. Enlarged mediastinal and left hilar lymph nodes. Measurements of the largest lymph nodes in the short axis dimension are as follows: *1.7 cm left periaortic lymph node (5:60) *2 cm AP window lymph node (5:60) *1.4 cm left hilar lymph node (5:73) Heart, pericardium, and thoracic vessels: The thoracic aorta and main pulmonary artery are normal in caliber. The cardiac chambers are normal in size. Coronary artery atherosclerotic calcifications are noted, although the study is not optimized for coronary assessment. No pericardial effusion or thickening. Bones and soft tissues: No destructive bone lesion. Degenerative disease of the thoracic spine. Chest wall is unremarkable. Upper abdomen: Again noted are multiple hepatic metastases Localizer images: No additional findings. DIVISION OF RADIOLOGY Provider, [facility] [place] - 10/30/2024 * * *Final Report* * * DATE OF EXAM: Oct 30 2024 8:41AM [facility] 0539 - CT CHEST W IVCON / PROCEDURE REASON: Liver masses * * * * Physician Interpretation * * * * EXAMINATION: CHEST CT WITH CONTRAST CLINICAL HISTORY: New liver masses Technique: Spiral CT acquisition of the chest from the thoracic inlet to the upper abdomen following IV contrast. MQ: CTCW_6 Contrast: 50 mL Omnipaque [address] Radiation dose: Integrated Dose-length product (DLP) for this visit = 217 mGy*cm CT Dose Reduction Employed: Automated exposure control(AEC) and iterative recon Comparison: CT abdomen and pelvis 10/16/2024 RESULT: Limitations: None. Lines, tubes, and devices: None. Lung parenchyma and airways: 2.3 x 1.8 cm irregular perihilar mass in the left upper lobe (7:74). Bilateral coarse reticular opacities. No consolidation. Central airways are patent. Pleural space: No pleural effusion. No pleural thickening. Lower neck, lymph nodes, and mediastinum: The imaged thyroid gland is normal. Enlarged mediastinal and left hilar lymph nodes. Measurements of the largest lymph nodes in the short axis dimension are as follows: *1.7 cm left periaortic lymph node (5:60) *2 cm AP window lymph node (5:60) *1.4 cm left hilar lymph node (5:73) Heart, pericardium, and thoracic vessels: The thoracic aorta and main pulmonary artery are normal in caliber. The cardiac chambers are normal in size. Coronary artery atherosclerotic calcifications are noted, although the study is not optimized for coronary assessment. No pericardial effusion or thickening. Bones and soft tissues: No destructive bone lesion. Degenerative disease of the thoracic spine. Chest wall is unremarkable. Upper abdomen: Again noted are multiple hepatic metastases Localizer images: No additional findings. IMPRESSION IMPRESSION: 1. Irregular left upper lobe perihilar mass which could represent a primary lung malignancy or metastatic lesion 2. Mediastinal and left hilar lymphadenopathy Hot Box Operator: PSCB Transcribe Date/Time: Oct 30 2024 9:39A Dictated by : MADHU CORNELL MD This examination was interpreted and the report reviewed and electronically signed by: MADHU CORNELL MD on Oct 30 2024 9:52AM EST [facility] Radiology Study [facility] (narrative) [facility] IVOrdere d By: [facility] Provider on 10-30-[address] [facility] BETSY RODRIGEZ ([id number]) 1955 F Date Time Provider Department 10/22/24 GIRISH LEMOS During your visit today, we recorded the following information about you: Phylicia Heredia RN 10/22/2024 3:37 PM Signed Patient calls upset that the CT scan of her chest order has been cancelled four times. Patient requests order be sent to [facility] to see if they can see her any sooner that [facility]. Faxed per request to [phone]. Submitted PA to [employer] and Lori. Phylicia Heredia RN Allergies As of Date: 10/22/2024 Noted Allergy Reaction MEAGAN INHIBITORS 10/06/2017 2 - Rash CODEINE 10/06/2017 11 - Vomiting 14 - Other: See Comments Comments: Headache REMERON (MIRTAZAPINE) 01/17/2021 14 - Other: See Comments Comments: Fatigue WFARPTE-FFV-FAI REDUCTASE INHIBIT*11/14/2017 17 - Myalgia WALNUT 10/06/2017 16 - Unknown ZETIA (EZETIMIBE) 01/17/2021 17 - Myalgia Date Reviewed: 10/17/2024 Reviewed by: Carlota Harkins LPN - Fully Assessed Reason for Visit: Orders [681] Prescriptions as of 10/22/2024 - ondansetron orally disintegrating (ZOFRAN ODT) 4 mg disintegrating tablet Take 1 tablet by mouth every 6 hours as needed for nausea/vomiting. - losartan (COZAAR) 50 mg tablet Take 1 tablet by mouth once daily. - fluticasone (FLONASE) 50 mcg/actuation nasal spray Use 2 Sprays in each nostril once daily. Rinse mouth after use. - levothyroxine (SYNTHROID) 25 mcg tablet Take 1 tablet by mouth once daily. - potassium chloride (K-TAB) 10 mEq tablet Take two tablets daily - NEXLETOL 180 mg tablet once daily. - calcium carbonate (CALCIUM 500 ORAL) Take 1,000 mg by mouth once daily. - HYDROcodone-acetamin ophen (NORCO) 5-325 mg per tablet Take 1 tablet by mouth every 8 hours as needed for pain. - mv,jaci,iron,mn/folic acid/chol (WVFW-CHRC-IJWNC, PABA, ORAL) Take 1 tablet by mouth once daily. - Minoxidil 2 % external solution Apply 1 mL to affected area twice daily. - albuterol (PROVENTIL) 2.5 mg /3 mL (0.083 %) nebulizer solution Use 3 mL via nebulizer every 4 hours as needed for Wheezing/Shortness of Breath. Use over 5-15minutes. - Omeprazole 40 mg capsule Take 1 capsule by mouth twice daily. - gabapentin (NEURONTIN) 400 mg capsule Take 400 mg by mouth two times a day. Problem List As Of Date 10/22/2024 Noted Resolved Hypertension [I10] Hypothyroidism [E03.9] GERD (gastroesophageal reflux disease) [K21.9] Hyperlipidemia [E78.5] DDD (degenerative disc disease), lumbar [M51.36* Chronic back pain [M54.9, G89.29] Obesity (BMI 30.0-34.9) [E66.811] Anxiety with depression [F41.8] Other acute pulmonary embolism, unspecified whe*01/24/2023 Stage 3 chronic kidney disease (HCC) [N18.30] 02/20/2023 Pulmonary hypertension (HCC) [I27.20] 06/22/2023 Encounter Status:Closed by PHYLICIA HEREDIA on 10/22/24 Normal [facility] CNPSandra 10-20-2024 CNPN Telephone (FAMPWS) BETSY RODRIGEZ ([id number]) 1955 F Date Time Provider Department 10/20/24 [facility] During your visit today, we recorded the following information about you: Mae Wong MA 10/20/2024 10:10 AM Signed ----- Message from Girish Lemos MD sent at 10/19/2024 2:20 PM EST ----- Normal alpha fetoprotein level. Follow up with CT chest and referrals as discussed in office. Mae Wong MA 10/20/2024 10:11 AM Signed Pt notified of results via [employer]. Mae Wong Ma Allergies As of Date: 10/20/2024 Noted Allergy Reaction MEAGAN INHIBITORS 10/06/2017 2 - Rash CODEINE 10/06/2017 11 - Vomiting 14 - Other: See Comments Comments: Headache REMERON (MIRTAZAPINE) 01/17/2021 14 - Other: See Comments Comments: Fatigue UPIKKKW-CLM-BWN REDUCTASE INHIBIT*11/14/2017 17 - Myalgia WALNUT 10/06/2017 16 - Unknown ZETIA (EZETIMIBE) 01/17/2021 17 - Myalgia Date Reviewed: 10/17/2024 Reviewed by: Carlota Harkins LPN - Fully Assessed Reason for Visit: Results [95] Prescriptions as of 10/20/2024 - ondansetron orally disintegrating (ZOFRAN ODT) 4 mg disintegrating tablet Take 1 tablet by mouth every 6 hours as needed for nausea/vomiting. - losartan (COZAAR) 50 mg tablet Take 1 tablet by mouth once daily. - fluticasone (FLONASE) 50 mcg/actuation nasal spray Use 2 Sprays in each nostril once daily. Rinse mouth after use. - levothyroxine (SYNTHROID) 25 mcg tablet Take 1 tablet by mouth once daily. - potassium chloride (K-TAB) 10 mEq tablet Take two tablets daily - NEXLETOL 180 mg tablet once daily. - calcium carbonate (CALCIUM 500 ORAL) Take 1,000 mg by mouth once daily. - HYDROcodone-acetamin ophen (NORCO) 5-325 mg per tablet Take 1 tablet by mouth every 8 hours as needed for pain. - mv,jaci,iron,mn/folic acid/chol (AWRU-TGSU-GTGDS, PABA, ORAL) Take 1 tablet by mouth once daily. - Minoxidil 2 % external solution Apply 1 mL to affected area twice daily. - albuterol (PROVENTIL) 2.5 mg /3 mL (0.083 %) nebulizer solution Use 3 mL via nebulizer every 4 hours as needed for Wheezing/Shortness of Breath. Use over 5-15minutes. - Omeprazole 40 mg capsule Take 1 capsule by mouth twice daily. - gabapentin (NEURONTIN) 400 mg capsule Take 400 mg by mouth two times a day. Problem List As Of Date 10/20/2024 Noted Resolved Hypertension [I10] Hypothyroidism [E03.9] GERD (gastroesophageal reflux disease) [K21.9] Hyperlipidemia [E78.5] DDD (degenerative disc disease), lumbar [M51.36* Chronic back pain [M54.9, G89.29] Obesity (BMI 30.0-34.9) [E66.811] Anxiety with depression [F41.8] Other acute pulmonary embolism, unspecified whe*01/24/2023 Stage 3 chronic kidney disease (HCC) [N18.30] 02/20/2023 Pulmonary hypertension (HCC) [I27.20] 06/22/2023 Encounter Status:Closed by MAE WONG on 10/20/24 Normal [facility] Telephone (HEMAWS) BETSY RODRIGEZ ([id number]) 1955 F Date Time Provider Department 10/20/24 BARBARA LEE During your visit today, we recorded the following information about you: Jyotsna Bender 10/20/2024 8:30 AM Signed Patient has consult to Oncology that needs to be scheduled. DX: Liver Masses Insurance: [employer] Medicare Advantage O Referred by: Girish Lemos MD Please review and advise. Joyce Cisneros LPN 10/20/2024 8:35 AM Signed Scheduled for CT chest today to find primary. Will need biopsy. BETTYE Santos Melanie, LPN 10/22/2024 10:31 AM Signed D/T CT machine being down, CT chest rescheduled to 10/22/2024. BETTEY Santos Melanie, LPN 10/27/2024 9:[address] chest scheduled for 10/30/2024. BETTYE Santos Melanie, LPN 10/30/2024 4:[address] chest results from 10/30/2024- IMPRESSION: 1. Irregular left upper lobe perihilar mass which could represent a primary lung malignancy or metastatic lesion 2. Mediastinal and left hilar lymphadenopathy CT abd/pel from 10/16/2024- Numerous bilobar hepatic masses Being referred by Dr. Lemos. No biopsy yet. BETTYE Santos Melanie, LPN 10/31/2024 8:56 AM Signed Left message for patient to contact office. PSS- please offer her a new patient appointment TODAY with Dr. Hansen @ 10:30 or 1:00. BETTYE Santos Melanie, LPN 10/31/2024 2:14 PM Signed PSS- please schedule patient with Dr. Robbins on 11/05/2024 @ 9:00. Patient knows to arrive at 8:30. She is aware of the appointment. BETTYE Santos Melissa 10/31/2024 2:37 PM Signed Appointment scheduled. Allergies As of Date: 10/20/2024 Noted Allergy Reaction MEAGAN INHIBITORS 10/06/2017 2 - Rash CODEINE 10/06/2017 11 - Vomiting 14 - Other: See Comments Comments: Headache REMERON (MIRTAZAPINE) 01/17/2021 14 - Other: See Comments Comments: Fatigue NUWKAHO-FLW-NNP REDUCTASE INHIBIT*11/14/2017 17 - Myalgia WALNUT 10/06/2017 16 - Unknown ZETIA (EZETIMIBE) 01/17/2021 17 - Myalgia Date Reviewed: 10/17/2024 Reviewed by: Carlota Harkins LPN - Fully Assessed Reason for Visit: New Patient [172] Prescriptions as of 10/31/2024 - ondansetron orally disintegrating (ZOFRAN ODT) 4 mg disintegrating tablet Take 1 tablet by mouth every 6 hours as needed for nausea/vomiting. - losartan (COZAAR) 50 mg tablet Take 1 tablet by mouth once daily. - fluticasone (FLONASE) 50 mcg/actuation nasal spray Use 2 Sprays in each nostril once daily. Rinse mouth after use. - levothyroxine (SYNTHROID) 25 mcg tablet Take 1 tablet by mouth once daily. - potassium chloride (K-TAB) 10 mEq tablet Take two tablets daily - NEXLETOL 180 mg tablet once daily. - calcium carbonate (CALCIUM 500 ORAL) Take 1,000 mg by mouth once daily. - HYDROcodone-acetamin ophen (NORCO) 5-325 mg per tablet Take 1 tablet by mouth every 8 hours as needed for pain. - mv,jaci,iron,mn/folic acid/chol (BKOG-BDKP-ENAJH, PABA, ORAL) Take 1 tablet by mouth once daily. - Minoxidil 2 % external solution Apply 1 mL to affected area twice daily. - albuterol (PROVENTIL) 2.5 mg /3 mL (0.083 %) nebulizer solution Use 3 mL via nebulizer every 4 hours as needed for Wheezing/Shortness of Breath. Use over 5-15minutes. - Omeprazole 40 mg capsule Take 1 capsule by mouth twice daily. - gabapentin (NEURONTIN) 400 mg capsule Take 400 mg by mouth two times a day. Problem List As Of Date 10/20/2024 Noted Resolved Hypertension [I10] Hypothyroidism [E03.9] GERD (gastroesophageal reflux disease) [K21.9] Hyperlipidemia [E78.5] DDD (degenerative disc disease), lumbar [M51.36* Chronic back pain [M54.9, G89.29] Obesity (BMI 30.0-34.9) [E66.811] Anxiety with depression [F41.8] Other acute pulmonary embolism, unspecified whe*01/24/2023 Stage 3 chronic kidney disease (HCC) [N18.30] 02/20/2023 Pulmonary hypertension (HCC) [I27.20] 06/22/2023 Encounter Status:Closed by JOYCE CISNEROS on 10/31/24 Normal [facility] AFP SerPl-ncon 10-17-2024 AFP [Mass/Vol] 6.52 ng/mL Normal <9.00 [facility] Comment on above: Order Comment: Speci men Type: BLOOD SPECIMENOrdering Facility: [facility] Address: [address] [place] [address] Result Comment: The Alpha-Fetoprotein test was performed using the [employer] DxI immunoenzymatic assay. Results obtained with different assay methods or kits cannot be used interchangeably. Performed By: #### 1 834-1 ####[facility] [id number] [facility] [id number] [place] CNOVon 10-17-2024 CNOV Office Visit (FAMPWS) BETSY RODRIGEZ ([id number]) 1955 F Date Time Provider Department 10/17/24 1:00 PM [facility] During your visit today, we recorded the following information about you: Temperature Pulse Respiration Blood pressure 97.8 degrees 67/minute 12/minute 118/70 Weight Height 73.5 kg 1.6 m Girish Lemos MD 10/17/2024 3:26 PM Signed Chief Complaint Patient presents with: Follow Up: discuss lab results and care plan, diarrhea x 3 days HPI Betsy Rodrigez is a 68 year old female who presents here today for Above Complaints. Patient here today to discuss lab and imaging results. Evaluated by Oleg Fields yesterday with following HPI: Patient presents for abdominal pain x1 month. Patient reports pain is generalized and aching. Also has sensation of a stitch in her right side/RUQ. Reports loose stools x2 days and nausea intermittently but typically worse after eating. Denies vomiting, urinary complaints. Labs reviewable below. CT scan obtained which showed the following: CT ABD/PEL W IV CON: IMPRESSION: 1. Numerous bilobar hepatic masses as described above, highly suspicious for metastatic disease from unknown primary. Additionally, Limited evaluation of the lower chest demonstrates partial visualization of thoracic adenopathy. Would advise further evaluation with a CT of the chest with intravenous contrast at this time. If the site of a primary malignancy is not detected on the chest CT, then percutaneous biopsy could be performed of the liver masses. 2. Mildly enlarged periportal lymph node as described above. The possibility of metastatic adenopathy cannot be excluded. Discussed findings with patient and need for further workup with CT chest with IV contrast and referrals for further workup. States that she is still having RUQ pain, currently 01/24. Treating at home with [place] which Dr. Johnson prescribes for her back without much improvement. Not interested in higher dose pain medicine today, but may reach out to their office. Using zofran for nausea which is not helping. Would like refill. Tolerating small amounts of food, but is pushing PO fluids. Loose stools persist, but improve with imodium. Past medical history, appointments, medications, allergies reviewed. Previous Medical History PAST MEDICAL HISTORY Diagnosis Date Anxiety with depression Chronic back pain Chronic kidney disease (CKD), stage III (moderate) (HCC) Colon polyp tubular adenoma [address] 07/16 to 08/17 DDD (degenerative disc disease), lumbar seeing Dr. Johnson Dysphagia Dr. Stiles Ectopic 1991 GERD (gastroesophageal reflux disease) History of prediabetes Hyperlipidemia Hypertension Hypothyroidism Obesity (BMI 30.0-34.9) Other pulmonary embolism without acute cor pulmonale (HCC) Pneumonia due to [place] [address] virus Requiring intubation Previous Surgical History PAST SURGICAL HISTORY Procedure Laterality Date APPENDECTOMY 1966 BREAST LUMPECTOMY HX Bilateral BREAST RECONSTRUCTION Right SECTION HX 1973, 1975 CHOLECYSTECTOMY 2016 COLONOSCOPY 2016 repeat in 3 years, Dr. Stiles LYSIS OF ADHESIONS 1978 PAST SURGICAL HISTORY OF 1981 tubal reconstruction PAST SURGICAL HISTORY OF 2013 back surgery, microdiscectomy? PAST SURGICAL HISTORY OF Bilateral vericose vein stripping PAST SURGICAL HISTORY OF Bilateral heel spurs PAST SURGICAL HISTORY OF Bilateral surgery for epicondylitis PAST SURGICAL HISTORY OF cyst removal from eyelids TONSILLECTOMY HX 1957 Family History FAMILY HISTORY Problem Relation Age of Onset Cancer Mother lung Hypertension Mother Cancer Father lung Cancer Brother lung Stroke Maternal Grandmother or [place], patient unsure Coronary Artery Disease Maternal Grandfather No Known Problems Sister Patient Allergies ALLERGIES Allergen Reactions Meagan Inhibitors Rash Codeine Vomiting, Other: See Comments Headache Remeron [Mirtazapin* Other: See Comments Fatigue Utelvpg-Amf-Gql Red* Myalgia Michie Unknown Zetia [Ezetimibe] Myalgia Current Medications Current Outpatient Medications on File Prior to Visit Medication Sig losartan (COZAAR) 50 mg tablet Take 1 tablet by mouth once daily. fluticasone (FLONASE) 50 mcg/actuation nasal spray Use 2 Sprays in each nostril once daily. Rinse mouth after use. levothyroxine (SYNTHROID) 25 mcg tablet Take 1 tablet by mouth once daily. potassium chloride (K-TAB) 10 mEq tablet Take two tablets daily NEXLETOL 180 mg tablet once daily. calcium carbonate (CALCIUM 500 ORAL) Take 1,000 mg by mouth once daily. HYDROcodone-acetamin ophen (NORCO) 5-325 mg per tablet Take 1 tablet by mouth every 8 hours as needed for pain. albuterol (PROVENTIL) 2.5 mg /3 mL (0.083 %) nebulizer solution Use 3 mL via nebulizer every (more content not included)... [facility] (DEEPTIWST) BETSY RODRIGEZ ([id number]) 1955 F Date Time Provider Department 10/17/24 LENNOX BELLAMY During your visit today, we recorded the following information about you: Lennox Bellamy MSW 10/17/2024 3:56 PM Signed Sage spoke with patient regarding transportation needs. Patient reports that she does live in [facility]. Her spouse takes her to doctor appts, he is just not able to drive early in the morning or late at night, due to vision issues. Patient reports I do think that my Medicare Advantage plan has transportation. Patient will give her insurance a call to discuss transportation and see if she has that as a benefit. Patient and Sage also discussed [employer] [facility]. Sage provided patient with the number for [employer]. [employer] coordinates local churches in [facility] to address needs of residents. Patient notes that she will check with [employer] if insurance is unable to provide transportation assistance. Sage also provided patient with direct number and discussed other needs ie home care, home delivered meals, financial assistance needs that Sw could help with linking to resources. Patient thanked SW for call and will let Sw know if she has any further needs. Girish Lemos MD 10/19/2024 1:52 PM Signed Thank you. Allergies As of Date: 10/17/2024 Noted Allergy Reaction MEAGAN INHIBITORS 10/06/2017 2 - Rash CODEINE 10/06/2017 11 - Vomiting 14 - Other: See Comments Comments: Headache REMERON (MIRTAZAPINE) 01/17/2021 14 - Other: See Comments Comments: Fatigue JPMSDMN-WET-QGZ REDUCTASE INHIBIT*11/14/2017 17 - Myalgia WALNUT 10/06/2017 16 - Unknown ZETIA (EZETIMIBE) 01/17/2021 17 - Myalgia Date Reviewed: 10/17/2024 Reviewed by: Carlota Harkins LPN - Fully Assessed Prescriptions as of 10/20/2024 - ondansetron orally disintegrating (ZOFRAN ODT) 4 mg disintegrating tablet Take 1 tablet by mouth every 6 hours as needed for nausea/vomiting. - losartan (COZAAR) 50 mg tablet Take 1 tablet by mouth once daily. - fluticasone (FLONASE) 50 mcg/actuation nasal spray Use 2 Sprays in each nostril once daily. Rinse mouth after use. - levothyroxine (SYNTHROID) 25 mcg tablet Take 1 tablet by mouth once daily. - potassium chloride (K-TAB) 10 mEq tablet Take two tablets daily - NEXLETOL 180 mg tablet once daily. - calcium carbonate (CALCIUM 500 ORAL) Take 1,000 mg by mouth once daily. - HYDROcodone-acetamin ophen (NORCO) 5-325 mg per tablet Take 1 tablet by mouth every 8 hours as needed for pain. - mv,jaci,iron,mn/folic acid/chol (QTPQ-PXXE-YEZGZ, PABA, ORAL) Take 1 tablet by mouth once daily. - Minoxidil 2 % external solution Apply 1 mL to affected area twice daily. - albuterol (PROVENTIL) 2.5 mg /3 mL (0.083 %) nebulizer solution Use 3 mL via nebulizer every 4 hours as needed for Wheezing/Shortness of Breath. Use over 5-15minutes. - Omeprazole 40 mg capsule Take 1 capsule by mouth twice daily. - gabapentin (NEURONTIN) 400 mg capsule Take 400 mg by mouth two times a day. Problem List As Of Date 10/17/2024 Noted Resolved Hypertension [I10] Hypothyroidism [E03.9] GERD (gastroesophageal reflux disease) [K21.9] Hyperlipidemia [E78.5] DDD (degenerative disc disease), lumbar [M51.36* Chronic back pain [M54.9, G89.29] Obesity (BMI 30.0-34.9) [E66.811] Anxiety with depression [F41.8] Other acute pulmonary embolism, unspecified whe*01/24/2023 Stage 3 chronic kidney disease (HCC) [N18.30] 02/20/2023 Pulmonary hypertension (HCC) [I27.20] 06/22/2023 Encounter Status:Closed by LENNOX BELLAMY on 10/20/24 Normal [facility] HAV IgM Ser Qlon 10-17-2024 HAV IgM Ql (S) Negative Normal Negative [facility] Comment on above: Order Comment: Speci tana Type: BLOOD SPECIMEN Ordering Facility: [facility] Address: [address] [place] [address] Result Comment: No e vidence of recent infection with Hepatitis A virus. Performed By: #### 2 2314-9, 83515-3, 5194-11 #### [facility] CLIA [id number] [address] [place] [address] [place] HBV core IgM Ser Qlon 2024 HBV core IgM Ql (S) Negative Normal Negative [facility] Comment on above: Order Comment: Pati fajardo Type: BLOOD SPECIMEN Ordering Facility: [facility] Address: [address] [place] [address] Result Comment: No e vidence of recent infection with Hepatitis B virus. Should recent infection be suspected, repeat testing may be considered 3-4 weeks after this draw. Performed By: #### 2 2314-9, 59637-6, 5194-11 #### [facility] CLIA [id number] [address] [place] [address] [place] HBV surface Ag Ser Qlon 09-19 HBV surface Ag Ql (S) Negative Normal Negative [facility] Comment on above: Order Comment: Pati fajardo Type: BLOOD SPECIMEN Ordering Facility: [facility] Address: [address] [place] [address] Performed By: #### 2 2314-9, 21382-6, 5194-11 #### [facility] CLIA [id number] [facility] [place] [address] [place] HCV Ab Ser Qlon 10-17-2024 HCV Ab Ql (S) Negative Normal Negative [facility] Comment on above: Order Comment: Speci men Type: BLOOD SPECIMENOrdering Facility: [facility] Address: [address] [place] [address] Result Comment: The result suggests no evidence of active infection with Hepatitis C virus. Should recent infection be suspected, repeat testing may be considered 4-6 weeks after this draw. Performed By: #### 1 6128-1 ####[facility]IA [id number] [place] [address] [place] Amylase SerPl-cCncon 025 Amylase [Catalytic activity/Vol] 77 U/L Normal 30-104 [facility] Comment on above: Order Comment: Speci men Type: BLOOD SPECIMENOrdering Facility: [facility] Address: [address] [place] [address] Performed By: #### 2 4323-8 ####[facility] [id number] [place] [address] [place]#### 1798-8, 3040-3 ####[facility] [place] LABCLIA [id number] [place] [address] [place] CBC W Auto Differential pane l (Bld)on 10-16-2024 Basophils (Bld) [#/Vol] 0.07 10*3/uL [facility] Basophils/100 WBC (Bld) 1.5 % [facility] Differential cell count method Nom (Bld) Auto [facility] Eosinophils (Bld) [#/Vol] 0.08 10*3/uL [facility] Eosinophils/100 WBC (Bld) 1.7 % [facility] Erythrocyte distribution width (RBC) [Ratio] 13.2 % 11.5 - 15.0 % [facility] Hematocrit (Bld) [Volume fraction] 42.8 % 36.0 - 46.0 % [facility] Hemoglobin (Bld) [Mass/Vol] 14.3 g/dL 11.5 - 15.5 g/dL [facility] Immature granulocytes (Bld) [#/Vol] NINF [facility] Immature granulocytes/100 WBC (Bld) 0.2 % [facility] Lymphocytes (Bld) [#/Vol] 1.31 10*3/uL [facility] Lymphocytes/100 WBC (Bld) 27.6 % [facility] MCH (RBC) [Entitic mass] 29.1 pg 26. 0 - 34.[address] [facility] MCHC (RBC) [Mass/Vol] 33.4 g/dL 30.5 - 36.0 g/dL [facility] MCV (RBC) [Entitic vol] 87.2 fL 80.0 - 100.[address] [facility] Monocytes (Bld) [#/Vol] 0.66 10*3/uL [facility] Monocytes/100 WBC (Bld) 13.9 % [facility] Neutrophils (Bld) [#/Vol] 2.61 10*3/uL [facility] Neutrophils/100 WBC (Bld) 55.1 % [facility] Nucleated RBC (Bld) [#/Vol] NINF [facility] Nucleated RBC/100 WBC (Bld) [Ratio] 0.0 % /[address] [facility] Platelet mean volume (Bld) [Entitic vol] 11.5 fL 9.0 - 12.[address] [facility] Platelets (Bld) [#/Vol] 318 10*3/uL [facility] RBC (Bld) [#/Vol] 4.91 10*6/uL 3.90 - 5.2 0 m/uL [facility] WBC (Bld) [#/Vol] 4.74 10*3/uL [facility] Basophils (Bld) [#/Vol] 0.07 10*3/uL Normal <0.11 [facility] Comment on above: Order Comment: Speci men Type: BLOOD SPECIMENOrdering Facility: [facility] Address: [address] [place] [address] Performed By: #### 5 7021-8 ####[facility] [place] [id number] [place] [address] [place] Basophils/100 WBC (Bld) 1.5 % Normal [facility] Comment on above: Order Comment: Speci men Type: BLOOD SPECIMENOrdering Facility: [facility] Address: [address] [place] [address] Performed By: #### 5 7021-8 ####[facility] [id number] [place] [address] [place] Differential cell count method Nom (Bld) Auto Normal [facility] Comment on above: Order Comment: Speci men Type: BLOOD SPECIMENOrdering Facility: [facility] Address: [address] [place] [address] Performed By: #### 5 7021-8 ####[facility] [id number] [place] [address] [place] Eosinophils (Bld) [#/Vol] 0.08 10*3/uL Normal <0.46 [facility] Comment on above: Order Comment: Speci men Type: BLOOD SPECIMENOrdering Facility: [facility] Address: [address] [place] [address] Performed By: #### 5 7021-8 ####[facility] [id number] [place] [address] [place] Eosinophils/100 WBC (Bld) 1.7 % Normal [facility] Comment on above: Order Comment: Speci men Type: BLOOD SPECIMENOrdering Facility: [facility] Address: [address] [place] [address] Performed By: #### 5 7021-8 ####[facility] [id number] [place] [address] [place] Erythrocyte distribution width (RBC) [Ratio] 13.2 % Normal 11.5-15.0 [facility] Comment on above: Order Comment: Speci men Type: BLOOD SPECIMENOrdering Facility: [facility] Address: [address] [place] [address] Performed By: #### 5 7021-8 ####[facility] TONNY [id number] [place] [address] [place] Hematocrit (Bld) [Volume fraction] 42.8 % Normal 36.0-46.0 [facility] Comment on above: Order Comment: Speci men Type: BLOOD SPECIMENOrdering Facility: [facility] Address: [address] [place] [address] Performed By: #### 5 7021-8 ####[facility] [id number] [place] [address] [place] Hemoglobin (Bld) [Mass/Vol] 14.3 g/dL Normal 11.5-15.5 [facility] Comment on above: Order Comment: Speci men Type: BLOOD SPECIMENOrdering Facility: [facility] Address: [address] [place] [address] Performed By: #### 5 7021-8 ####[facility] [id number] [place] [address] [place] Immature granulocytes (Bld) [#/Vol] 10*3/uL Normal <0.10 [facility] Comment on above: Order Comment: Speci men Type: BLOOD SPECIMENOrdering Facility: [facility] Address: [address] [place] [address] Performed By: #### 5 7021-8 ####[facility] [id number] [place] [address] [place] Immature granulocytes/100 WBC (Bld) 0.2 % Normal [facility] Comment on above: Order Comment: Speci men Type: BLOOD SPECIMENOrdering Facility: [facility] Address: [address] [place] [address] Performed By: #### 5 7021-8 ####[facility] MILLWNCLIA [id number] [place] [address] [place] Lymphocytes (Bld) [#/Vol] 1.31 10*3/uL Normal 1.00-4.00 [facility] Comment on above: Order Comment: Speci men Type: BLOOD SPECIMENOrdering Facility: [facility] Address: [address] [place] [address] Performed By: #### 5 7021-8 ####[facility] [id number] [place] [address] [place] Lymphocytes/100 WBC (Bld) 27.6 % Normal [facility] Comment on above: Order Comment: Speci men Type: BLOOD SPECIMENOrdering Facility: [facility] Address: [address] [place] [address] Performed By: #### 5 7021-8 ####[facility] [id number] [place] [address] [place] MCH (RBC) [Entitic mass] 29.1 pg Normal 26.0-34.0 [facility] Comment on above: Order Comment: Speci men Type: BLOOD SPECIMENOrdering Facility: [facility] Address: [address] [place] [address] Performed By: #### 5 7021-8 ####[facility] [id number] [place] [address] [place] MCHC (RBC) [Mass/Vol] 33.4 g/dL Normal 30.5-36.0 [facility] Comment on above: Order Comment: Speci men Type: BLOOD SPECIMENOrdering Facility: [facility] Address: [address] [place] [address] Performed By: #### 5 7021-8 ####[facility] [id number] [place] [address] [place] MCV (RBC) [Entitic vol] 87.2 fL Normal 80.0-100.0 C [facility] Comment on above: Order Comment: Speci men Type: BLOOD SPECIMENOrdering Facility: [facility] Address: [address] [place] [address] Performed By: #### 5 7021-8 ####[facility] [id number] [place] [address] [place] Monocytes (Bld) [#/Vol] 0.66 10*3/uL Normal <0.87 [facility] Comment on above: Order Comment: Speci men Type: BLOOD SPECIMENOrdering Facility: [facility] Address: [address] [place] [address] Performed By: #### 5 7021-8 ####[facility] [id number] [place] [address] [place] Monocytes/100 WBC (Bld) 13.9 % Normal C [facility] Comment on above: Order Comment: Speci men Type: BLOOD SPECIMENOrdering Facility: [facility] Address: [address] [place] [address] Performed By: #### 5 7021-8 ####[facility] [id number] [place] [address] [place] Neutrophils (Bld) [#/Vol] 2.61 10*3/uL Normal 1.45-7.50 [facility] Comment on above: Order Comment: Speci men Type: BLOOD SPECIMENOrdering Facility: [facility] Address: [address] [place] [address] Performed By: #### 5 7021-8 ####[facility] [id number] [place] [address] [place] Neutrophils/100 WBC (Bld) 55.1 % Normal [facility] Comment on above: Order Comment: Speci men Type: BLOOD SPECIMENOrdering Facility: [facility] Address: [address] [place] [address] Performed By: #### 5 7021-8 ####[facility] [id number] [place] [address] [place] Nucleated RBC (Bld) [#/Vol] 10*3/uL Normal <0.01 [facility] Comment on above: Order Comment: Speci men Type: BLOOD SPECIMENOrdering Facility: [facility] Address: [address] [place] [address] Performed By: #### 5 7021-8 ####[facility] [id number] [place] [address] [place] Nucleated RBC/100 WBC (Bld) [Ratio] 0.0 /100 WBC Normal [facility] Comment on above: Order Comment: Speci men Type: BLOOD SPECIMENOrdering Facility: [facility] Address: [address] [place] [address] Performed By: #### 5 7021-8 ####[facility] [id number] [place] [address] [place] Platelet mean volume (Bld) [Entitic vol] 11.5 fL Normal 9.0-12.7 [facility] Comment on above: Order Comment: Speci men Type: BLOOD SPECIMENOrdering Facility: [facility] Address: [address] [place] [address] Performed By: #### 5 7021-8 ####[facility] [id number] [place] [address] [place] Platelets (Bld) [#/Vol] 318 10*3/uL Normal 150-400 [facility] Comment on above: Order Comment: Speci men Type: BLOOD SPECIMENOrdering Facility: [facility] Address: [address] [place] [address] Performed By: #### 5 7021-8 ####[facility] SAMMYTOWNCLIA [id number] [place] [address] [place] RBC (Bld) [#/Vol] 4.91 10*6/uL Normal 3.90-5.20 [facility] Comment on above: Order Comment: Speci men Type: BLOOD SPECIMENOrdering Facility: [facility] Address: [address] [place] [address] Performed By: #### 5 7021-8 ####[facility] [id number] [place] [address] [place] WBC (Bld) [#/Vol] 4.74 10*3/uL Normal 3.70-11.00 [facility] Comment on above: Order Comment: Speci men Type: BLOOD SPECIMENOrdering Facility: [facility] Address: [address] [place] [address] Performed By: #### 5 7021-8 ####[facility] [id number] [address] OF [facility] CNOVon 10-16-2024 CNOV Office Visit (SHIELAWS) BETSY RODRIGEZ ([id number]) 1955 F Date Time Provider Department 10/16/24 8:40 AM OLEG FIELDS During your visit today, we recorded the following information about you: Pulse Respiration Blood pressure Weight 74/minute 14/minute 144/80 73.9 kg Oleg Fields APRN.RADIATION ENGINEER 10/16/2024 8:53 AM Signed Chief Complaint Patient presents with: Abdominal Pain: X 1 month HPI Betsy Rodrigez is a 68 year old female who presents here today for Above Complaints.. Patient presents for abdominal pain x1 month. Patient reports pain is generalized and aching. Also has sensation of a stitch in her right side/RUQ. Reports loose stools x2 days and nausea intermittently but typically worse after eating. Denies vomiting, urinary complaints. Past medical history, appointments, medications, allergies reviewed. Previous Medical History PAST MEDICAL HISTORY Diagnosis Date Anxiety with depression Chronic back pain Chronic kidney disease (CKD), stage III (moderate) (HCC) Colon polyp tubular adenoma [address] 07/16 to 08/17 DDD (degenerative disc disease), lumbar seeing Dr. Johnson Dysphagia Dr. Stiles Ectopic 1991 GERD (gastroesophageal reflux disease) History of prediabetes Hyperlipidemia Hypertension Hypothyroidism Obesity (BMI 30.0-34.9) Other pulmonary embolism without acute cor pulmonale (HCC) Pneumonia due to [place] [address] virus Requiring intubation Previous Surgical History PAST SURGICAL HISTORY Procedure Laterality Date APPENDECTOMY 1966 BREAST LUMPECTOMY HX Bilateral BREAST RECONSTRUCTION Right SECTION HX 1973, 1975 CHOLECYSTECTOMY 2016 COLONOSCOPY 2016 repeat in 3 years, Dr. Stiles LYSIS OF ADHESIONS 1978 PAST SURGICAL HISTORY OF 1981 tubal reconstruction PAST SURGICAL HISTORY OF 2013 back surgery, microdiscectomy? PAST SURGICAL HISTORY OF Bilateral vericose vein stripping PAST SURGICAL HISTORY OF Bilateral heel spurs PAST SURGICAL HISTORY OF Bilateral surgery for epicondylitis PAST SURGICAL HISTORY OF cyst removal from eyelids TONSILLECTOMY HX 1957 Family History FAMILY HISTORY Problem Relation Age of Onset Cancer Mother lung Hypertension Mother Cancer Father lung Cancer Brother lung Stroke Maternal Grandmother or [place], patient unsure Coronary Artery Disease Maternal Grandfather No Known Problems Sister Patient Allergies ALLERGIES Allergen Reactions Meagan Inhibitors Rash Codeine Vomiting, Other: See Comments Headache Remeron [Mirtazapin* Other: See Comments Fatigue Dtzkrdr-Kuu-Mml Red* Myalgia Michie Unknown Zetia [Ezetimibe] Myalgia Current Medications Current Outpatient Medications on File Prior to Visit Medication Sig losartan (COZAAR) 50 mg tablet Take 1 tablet by mouth once daily. fluticasone (FLONASE) 50 mcg/actuation nasal spray Use 2 Sprays in each nostril once daily. Rinse mouth after use. levothyroxine (SYNTHROID) 25 mcg tablet Take 1 tablet by mouth once daily. potassium chloride (K-TAB) 10 mEq tablet Take two tablets daily NEXLETOL 180 mg tablet once daily. calcium carbonate (CALCIUM 500 ORAL) Take 1,000 mg by mouth once daily. HYDROcodone-acetamin ophen (NORCO) 5-325 mg per tablet Take 1 tablet by mouth every 8 hours as needed for pain. mv,jaci,iron,mn/folic acid/chol (BVMH-QEDM-VMMGQ, PABA, ORAL) Take 1 tablet by mouth once daily. (Patient not taking: Reported on 08/22/2022) Minoxidil 2 % external solution Apply 1 mL to affected area twice daily. albuterol (PROVENTIL) 2.5 mg /3 mL (0.083 %) nebulizer solution Use 3 mL via nebulizer every 4 hours as needed for Wheezing/Shortness of Breath. Use over 5-15minutes. Omeprazole 40 mg capsule Take 1 capsule by mouth twice daily. gabapentin (NEURONTIN) 400 mg capsule Take 400 mg by mouth two times a day. No current facility-administere d medications on file prior to visit. Social History Social History Tobacco Use Smoking status: Former Current packs/day: 0.00 Average packs/day: 1 pack/day for 49.0 years (49.0 ttl pk-yrs) Types: Cigarettes Start date: 08/14/1967 Quit date: 08/14/2016 Years since quittin.1 Smokeless tobacco: Never Substance Use Topics Alcohol use: No Drug use: No Review of Symptoms REVIEW OF SYSTEMS SEE HPI EXAM: BP 144/80 Pulse 74 Resp 14 Wt 73.9 kg (163 lb) BMI 28.87 kg/m? General Appearance: Well appearing, alert, in no acute distress, well-hydrated, well nourished. Abdomen: Negative findings: umbilicus normal, symmetric, no masses palpable, and bowel sounds normal, Positive findings: distended, tenderness moderate epigastric, RLQ, LLQ, and mild generalized. Health Maintenance List Mammogram Screening due on 07/16/2020 Colorectal Cancer Screening due on 03/28/2023 Covid-19 Vaccine( season) due on 05/18/2024 Advance (more content not included)... Normal [facility] Alexandrea 10-16-2024 DIA Telephone (FAMPWS) BETSY RODRIGEZ ([id number]) 1955 F Date Time Provider Department 10/16/24 OLEG FIELDS During your visit today, we recorded the following information about you: Oleg Fields APRN.RADIATION ENGINEER 10/16/2024 1:38 PM Signed Please call patient and schedule follow up with Dr. Lemos for tomorrow to discuss results and care plan. Also let patient know I have ordered follow up labs. Arin Muñoz MA 10/16/2024 3:00 PM Signed Pt notified and scheduled for a follow up tomorrow MELVA Mcfarlane Danielle, APRN.RADIATION ENGINEER 10/20/2024 10:20 AM Signed Please let patient know her hepatitis panel is negative. Mae Wong MA 10/20/2024 10:40 AM Signed Pt notified of results via [employer]. Mae Wong Ma Allergies As of Date: 10/16/2024 Noted Allergy Reaction MEAGAN INHIBITORS 10/06/2017 2 - Rash CODEINE 10/06/2017 11 - Vomiting 14 - Other: See Comments Comments: Headache REMERON (MIRTAZAPINE) 01/17/2021 14 - Other: See Comments Comments: Fatigue PRUBILA-XFP-EHY REDUCTASE INHIBIT*11/14/2017 17 - Myalgia WALNUT 10/06/2017 16 - Unknown ZETIA (EZETIMIBE) 01/17/2021 17 - Myalgia Date Reviewed: 10/16/2024 Reviewed by: Viridiana Torres, RT(R) - Fully Assessed Reason for Visit: Results [95] Primary Visit Diagnosis:Abnormal MRI, liver [R93.2] Order(s):CONSULT TO HEPATOLOGY [[id number]] Order #: [id number]: 1 FUTURE IR INTERVENTIONAL RADIOLOGY CONSULT [[id number]] Order #: [id number] HEP ACUTE PANEL BL [SQHACUTP] Order #: [id number] FUTURE Prescriptions as of 10/20/2024 - ondansetron orally disintegrating (ZOFRAN ODT) 4 mg disintegrating tablet Take 1 tablet by mouth every 6 hours as needed for nausea/vomiting. - losartan (COZAAR) 50 mg tablet Take 1 tablet by mouth once daily. - fluticasone (FLONASE) 50 mcg/actuation nasal spray Use 2 Sprays in each nostril once daily. Rinse mouth after use. - levothyroxine (SYNTHROID) 25 mcg tablet Take 1 tablet by mouth once daily. - potassium chloride (K-TAB) 10 mEq tablet Take two tablets daily - NEXLETOL 180 mg tablet once daily. - calcium carbonate (CALCIUM 500 ORAL) Take 1,000 mg by mouth once daily. - HYDROcodone-acetamin ophen (NORCO) 5-325 mg per tablet Take 1 tablet by mouth every 8 hours as needed for pain. - mv,jaci,iron,mn/folic acid/chol (OSAV-TCYF-FUUWK, PABA, ORAL) Take 1 tablet by mouth once daily. - Minoxidil 2 % external solution Apply 1 mL to affected area twice daily. - albuterol (PROVENTIL) 2.5 mg /3 mL (0.083 %) nebulizer solution Use 3 mL via nebulizer every 4 hours as needed for Wheezing/Shortness of Breath. Use over 5-15minutes. - Omeprazole 40 mg capsule Take 1 capsule by mouth twice daily. - gabapentin (NEURONTIN) 400 mg capsule Take 400 mg by mouth two times a day. Problem List As Of Date 10/16/2024 Noted Resolved Hypertension [I10] Hypothyroidism [E03.9] GERD (gastroesophageal reflux disease) [K21.9] Hyperlipidemia [E78.5] DDD (degenerative disc disease), lumbar [M51.36* Chronic back pain [M54.9, G89.29] Obesity (BMI 30.0-34.9) [E66.811] Anxiety with depression [F41.8] Other acute pulmonary embolism, unspecified whe*01/24/2023 Stage 3 chronic kidney disease (HCC) [N18.30] 02/20/2023 Pulmonary hypertension (HCC) [I27.20] 06/22/2023 Encounter Status:Closed by MAE WONG on 10/20/24 Normal [facility] CT ABD/PEL W IVCONon 025 CT ABD/PEL W IVCON * * *Final Report* * * DATE OF EXAM: Oct 16 2024 11:11AM [facility] 0530 - CT ABD/PEL W IVCON / PROCEDURE REASON: multiple diagnoses * * * * Physician Interpretation * * * * EXAMINATION: CT ABDOMEN AND PELVIS WITH IV CONTRAST CLINICAL HISTORY: Generalized abdominal pain and diarrhea. TECHNIQUE: CT of the abdomen and pelvis was performed using standard technique, scanning from just above the dome of the diaphragm to the symphysis pubis. MQ: CTAP_3 Contrast: IV: 100 ml of Omnipaque 350 Oral: 10 ml of Omni 240 10-25ml diluted with water CT Radiation dose: Integrated Dose-length product (DLP) for this visit = 562 mGy*cm. CT Dose Reduction Employed: Automated exposure control(AEC) and iterative recon COMPARISON: CT of the abdomen and pelvis without contrast from 06/14/2018. RESULT: Liver: Numerous bilobar hepatic masses are present on series 5, suspicious for metastatic disease. For example, -2.2 x 1.9 cm mass in segment 8 on slice 24. -1.7 x 1.0 cm mass in segment 3 on slice 56. -3.3 x 2.3 cm mass in segment 5 on slice 48. -3.1 x 2.4 center mass in segment 6 on slice 48. Numerous additional bilobar hepatic masses. Biliary: No bile duct dilation. Cholecystectomy. Spleen: Subcentimeter hypervascular lesion in the medial spleen which is nonspecific but could represent a hemangioma. No splenomegaly. Pancreas: No mass or duct dilation. Adrenals: 0.9 x 0.8 cm left adrenal nodule. Although not adequately evaluated on single phase postcontrast imaging, this is stable dating back to 2018. Therefore, this likely represents an adrenal adenoma. Kidneys: Mild bilateral renal cortical atrophy. Subcentimeter hypodense lesion along the medial lower pole of the left kidney which is too small to characterize but likely represents a cyst. 2 mm nonobstructing stone in the midpole of the left kidney. 2 mm nonobstructing stone in the midpole of the right kidney. GI tract: No dilation or wall thickening. Lymph nodes: Nonspecific mildly enlarged periportal lymph node measuring 1.3 x 1.2 cm on slice 46 of series 5. Mesentery/Peritoneum : No ascites or mass. Retroperitoneum: No mass. Vasculature: Moderate to marked calcification of the abdominal aorta and common iliac arteries. Pelvis: No mass, ascites or fluid collection. Bones/Soft Tissues: Degenerative changes. Lower thorax: Limited evaluation of the lower chest demonstrates partial visualization of mildly enlarged hilar/peribronchial lymph nodes and partial visualization of a mildly enlarged subcarinal lymph node. Moderate to marked emphysematous change throughout the lung bases. Moderate coronary artery calcification. Localizer images: No additional findings. IMPRESSION: 1. Numerous bilobar hepatic masses as described above, highly suspicious for metastatic disease from unknown primary. Additionally, Limited evaluation of the lower chest demonstrates partial visualization of thoracic adenopathy. Would advise further evaluation with a CT of the chest with intravenous contrast at this time. If the site of a primary malignancy is not detected on the chest CT, then percutaneous biopsy could be performed of the liver masses. 2. Mildly enlarged periportal lymph node as described above. The possibility of metastatic adenopathy cannot be excluded. ACTIONABLE RESULT: FOLLOW-UP Acuity: Actionable Findings: Thoracic-Other Routing Code: CT_1 Recommendation: CT Chest W IVCON Time Frame: as soon as possible, when the patient's clinical state allows. COMMUNICATION: Results will be communicated with the ordering provider via [employer] staff message or phone message by Imaging Support Services within 2 business days of report finalization. --END OF FINDING-- Algorithms for management of incidental imaging findings can be found on the [facility] Intranet Sharepoint site at: [email or web address] [email or web address] [email or web address] Hot Box Operator: CHRISTY Transcribe Date/Time: Oct 16 2024 11:46A Dictated by : GRAHAM BUSTILLO MD This examination was interpreted and the report reviewed and electronically signed by: GRAHAM BUSTILLO MD on Oct 16 2024 11:58AM EST [id number] CN ACTIONABLE Invalid Interpretation Code [facility] CT Abdomen and Pelvis W cont rast IVOrdered By: [facility] Provider on 10-16-2024 Radiology Result ACTIONABLE Abnormal [facility] Comment on above: This report contains an incidental or actionable finding. This finding may be a new finding separate from the reason your provider ordered the imaging test or it may be an already known finding that needs additional or continued follow-up. Because of this incidental or actionable finding, you may need another test (imaging or a different type of test). Please contact your provider for the next steps. [facility] CT Abdomen and Pelvis W cont rast Rosalino 10-16-2024 IMPRESSION: 1. Numerous bilobar hepatic masses as described above, highly suspicious for metastatic disease from unknown primary. Additionally, Limited evaluation of the lower chest demonstrates partial visualization of thoracic adenopathy. Would advise further evaluation with a CT of the chest with intravenous contrast at this time. If the site of a primary malignancy is not detected on the chest CT, then percutaneous biopsy could be performed of the liver masses. 2. Mildly enlarged periportal lymph node as described above. The possibility of metastatic adenopathy cannot be excluded. ACTIONABLE RESULT: FOLLOW-UP Acuity: Actionable Findings: Thoracic-Other Routing Code: CT_1 Recommendation: CT Chest W IVCON Time Frame: as soon as possible, when the patient's clinical state allows. COMMUNICATION: Results will be communicated with the ordering provider via SimpleRegistry staff message or phone message by [facility] [employer] [facility] within 2 business days of report finalization. --END OF FINDING-- Algorithms for management of incidental imaging findings can be found on the [facility] Intranet Sharepoint site at: [email or web address] idental%20Findi ngs%20at%20Imaging/F orms/[email or web address] Hot Box Operator: CHRISTY Transcribe Date/Time: Oct 16 2024 11:46A Dictated by : GRAHAM BUSTILLO MD This examination was interpreted and the report reviewed and electronically signed by: GRAHAM BUSTILLO MD on Oct 16 2024 11:58AM [facility] DIVISION OF RADIOLOGY * * *Final Report* * * DATE OF EXAM: Oct 16 2024 11:11AM [facility] 0530 - CT ABD/PEL W IVCON / PROCEDURE REASON: multiple diagnoses * * * * Physician Interpretation * * * * EXAMINATION: CT ABDOMEN AND PELVIS WITH IV CONTRAST CLINICAL HISTORY: Generalized abdominal pain and diarrhea. TECHNIQUE: CT of the abdomen and pelvis was performed using standard technique, scanning from just above the dome of the diaphragm to the symphysis pubis. MQ: CTAP_3 Contrast: IV: 100 ml of Omnipaque 350 Oral: 10 ml of Omni 240 10-25ml diluted with water CT Radiation dose: Integrated Dose-length product (DLP) for this visit = 562 mGy*cm. CT Dose Reduction Employed: Automated exposure control(AEC) and iterative recon COMPARISON: CT of the abdomen and pelvis without contrast from 06/14/2018. RESULT: Liver: Numerous bilobar hepatic masses are present on series 5, suspicious for metastatic disease. For example, -2.2 x 1.9 cm mass in segment 8 on slice 24. -1.7 x 1.0 cm mass in segment 3 on slice 56. -3.3 x 2.3 cm mass in segment 5 on slice 48. -3.1 x 2.4 center mass in segment 6 on slice 48. Numerous additional bilobar hepatic masses. Biliary: No bile duct dilation. Cholecystectomy. Spleen: Subcentimeter hypervascular lesion in the medial spleen which is nonspecific but could represent a hemangioma. No splenomegaly. Pancreas: No mass or duct dilation. Adrenals: 0.9 x 0.8 cm left adrenal nodule. Although not adequately evaluated on single phase postcontrast imaging, this is stable dating back to 2018. Therefore, this likely represents an adrenal adenoma. Kidneys: Mild bilateral renal cortical atrophy. Subcentimeter hypodense lesion along the medial lower pole of the left kidney which is too small to characterize but likely represents a cyst. 2 mm nonobstructing stone in the midpole of the left kidney. 2 mm nonobstructing stone in the midpole of the right kidney. GI tract: No dilation or wall thickening. Lymph nodes: Nonspecific mildly enlarged periportal lymph node measuring 1.3 x 1.2 cm on slice 46 of series 5. Mesentery/Peritoneum : No ascites or mass. Retroperitoneum: No mass. Vasculature: Moderate to marked calcification of the abdominal aorta and common iliac arteries. Pelvis: No mass, ascites or fluid collection. Bones/Soft Tissues: Degenerative changes. Lower thorax: Limited evaluation of the lower chest demonstrates partial visualization of mildly enlarged hilar/peribronchial lymph nodes and partial visualization of a mildly enlarged subcarinal lymph node. Moderate to marked emphysematous change throughout the lung bases. Moderate coronary artery calcification. Localizer images: No additional findings. DIVISION OF RADIOLOGY Provider, [facility] [employer] [place] - 10/16/2024 * * *Final Report* * * DATE OF EXAM: Oct 16 2024 11:11AM [facility] 0530 - CT ABD/PEL W IVCON / PROCEDURE REASON: multiple diagnoses * * * * Physician Interpretation * * * * EXAMINATION: CT ABDOMEN AND PELVIS WITH IV CONTRAST CLINICAL HISTORY: Generalized abdominal pain and diarrhea. TECHNIQUE: CT of the abdomen and pelvis was performed using standard technique, scanning from just above the dome of the diaphragm to the symphysis pubis. MQ: CTAP_3 Contrast: IV: 100 ml of Omnipaque 350 Oral: 10 ml of Omni 240 10-25ml diluted with water CT Radiation dose: Integrated Dose-length product (DLP) for this visit = 562 mGy*cm. CT Dose Reduction Employed: Automated exposure control(AEC) and iterative recon COMPARISON: CT of the abdomen and pelvis without contrast from 06/14/2018. RESULT: Liver: Numerous bilobar hepatic masses are present on series 5, suspicious for metastatic disease. For example, -2.2 x 1.9 cm mass in segment 8 on slice 24. -1.7 x 1.0 cm mass in segment 3 on slice 56. -3.3 x 2.3 cm mass in segment 5 on slice 48. -3.1 x 2.4 center mass in segment 6 on slice 48. Numerous additional bilobar hepatic masses. Biliary: No bile duct dilation. Cholecystectomy. Spleen: Subcentimeter hypervascular lesion in the medial spleen which is nonspecific but could represent a hemangioma. No splenomegaly. Pancreas: No mass or duct dilation. Adrenals: 0.9 x 0.8 cm left adrenal nodule. Although not adequately evaluated on single phase postcontrast imaging, this is stable dating back to 2018. Therefore, this likely represents an adrenal adenoma. Kidneys: Mild bilateral renal cortical atrophy. Subcentimeter hypodense lesion along the medial lower pole of the left kidney which is too small to characterize but likely represents a cyst. 2 mm nonobstructing stone in the midpole of the left kidney. 2 mm nonobstructing stone in the midpole of the right kidney. GI tract: No dilation or wall thickening. Lymph nodes: Nonspecific mildly enlarged periportal lymph node measuring 1.3 x 1.2 cm on slice 46 of series 5. Mesentery/Peritoneum : No ascites or mass. Retroperitoneum: No mass. Vasculature: Moderate to marked calcification of the abdominal aorta and common iliac arteries. Pelvis: No mass, ascites or fluid collection. Bones/Soft Tissues: Degenerative changes. Lower thorax: Limited evaluation of the lower chest demonstrates partial visualization of mildly enlarged hilar/peribronchial lymph nodes and partial visualization of a mildly enlarged subcarinal lymph node. Moderate to marked emphysematous change throughout the lung bases. Moderate coronary artery calcification. Localizer images: No additional findings. IMPRESSION IMPRESSION: 1. Numerous bilobar hepatic masses as described above, highly suspicious for metastatic disease from unknown primary. Additionally, Limited evaluation of the lower chest demonstrates partial visualization of thoracic adenopathy. Would advise further evaluation with a CT of the chest with intravenous contrast at this time. If the site of a primary malignancy is not detected on the chest CT, then percutaneous biopsy could be performed of the liver masses. 2. Mildly enlarged periportal lymph node as described above. The possibility of metastatic adenopathy cannot be excluded. ACTIONABLE RESULT: FOLLOW-UP Acuity: Actionable Findings: Thoracic-Other Routing Code: CT_1 Recommendation: CT Chest W IVCON Time Frame: as soon as possible, when the patient's clinical state allows. COMMUNICATION: Results will be communicated with the ordering provider via SimpleRegistry staff message or phone message by [facility] Support Services within 2 business days of report finalization. --END OF FINDING-- Algorithms for management of incidental imaging findings can be found on the [facility] Intranet Sharepoint site at: [email or web address] [email or web address] ngs%20at%20Imaging/F [email or web address] Hot Box Operator: CHRISTY Transcribe Date/Time: Oct 16 2024 11:46A Dictated by : GRAHAM BUSTILLO MD This examination was interpreted and the report reviewed and electronically signed by: GRAHAM BUSTILLO MD on Oct 16 2024 11:58AM EST [facility] Radiology Study observation (narrative) [facility] Comprehensive metabolic 2000 panelOrdered By: Jeanette Streeter on 10-16-2024 Albumin [Mass/Vol] 4.3 g/dL 3.9 - 4.9 g/dL [facility] ALP [Catalytic activity/Vol] 128 U/L High 34 - 123 U/L [facility] ALT [Catalytic activity/Vol] 43 U/L High 7 - 38 U/L [facility] Anion gap [Moles/Vol] 7 mmol/L Low 8 - 15 mmol/L [facility] AST [Catalytic activity/Vol] 117 U/L High 13 - 35 U/L [facility] Bilirubin [Mass/Vol] 0.4 mg/dL 0.2 - 1 .3 mg/dL [facility] Calcium [Mass/Vol] 10.6 mg/dL High 8.5 - 10. 2 mg/dL [facility] Chloride [Moles/Vol] 106 mmol/L 98 - 10 7 mmol/L [facility] CO2 [Moles/Vol] 27 mmol/L 22 - 30 mmol/L [facility] Creatinine [Mass/Vol] 0.86 mg/dL 0.58 - 0.96 mg/dL [facility] GFR/1.73 sq M.predicted among non-blacks MDRD (S/P/Bld) [Vol rate/Area] 73 mL/min/{1.73_m2} - PINF [facility] Comment on above: Estimated Glomerular Filtration Rate (eGFR) is calculated using the 2020 CKD-EPI creatinine equation. This equation utilizes serum creatinine, sex, and age as parameters. The creatinine assay has traceable calibration to isotope dilution-mass spectrometry. Refer to KDIGO guidelines for clinical interpretation. In patients with unstable renal function, e.g. those with acute kidney injury, the eGFR may not accurately reflect actual GFR. Glucose [Mass/Vol] 108 mg/dL High 74 - 99 mg/dL [facility] Comment on above: The [place] Diabete s Association (ADA) provides guidance for cutoff values for fasting glucose and random glucose. The ADA defines fasting as no caloric intake for at least 8 hours. Fasting plasma glucose results between 100 to 125 mg/dL indicate increased risk for diabetes (prediabetes). Fasting plasma glucose results greater than or equal to 126 mg/dL meet the criteria for diagnosis of diabetes. In the absence of unequivocal hyperglycemia, results should be confirmed by repeat testing. In a patient with classic symptoms of hyperglycemia or hyperglycemic crisis, random plasma glucose results greater than or equal to 200 mg/dL meet the criteria for diagnosis of diabetes. Reference: Standards of Medical Care in Diabetes 2016, [place] [employer] Association. Diabetes Care. 2016.39(Suppl 1). Potassium [Moles/Vol] 4.3 mmol/L 3.7 - 5.1 mmol/L [facility] Protein [Mass/Vol] 7.3 g/dL 6.3 - 8.0 g/dL [facility] Sodium [Moles/Vol] 140 mmol/L 136 - 144 mmol/L [facility] Urea nitrogen [Mass/Vol] 16 mg/dL 7 - 21 mg/d L [facility] Comprehensive metabolic 2000 panelon 10-16-2024 Albumin [Mass/Vol] 4.3 g/dL Normal 3.9-4.9 [facility] Comment on above: Order Comment: Pati fajardo Type: BLOOD SPECIMENOrdering Facility: [facility] Address: [address] [place] [address] Performed By: #### 2 4323-8 ####[facility] [id number] [place] [address] [place]#### 1798-8, 3040-3 ####[facility] [id number] [place] [address] [place] ALP [Catalytic activity/Vol] 128 U/L High 34-123 [facility] Comment on above: Order Comment: Pati fajardo Type: BLOOD SPECIMENOrdering Facility: [facility] Address: [address] [place] [address] Performed By: #### 2 4323-8 ####[facility] [id number] [place] [address] [place]#### 1798-8, 3040-3 ####[facility] [facility] [id number] [address] [address] [place] ALT [Catalytic activity/Vol] 43 U/L High 7-38 [facility] Comment on above: Order Comment: Speci men Type: BLOOD SPECIMENOrdering Facility: [facility] Address: [address] [place] [address] Performed By: #### 2 4323-8 ####[facility] MILLTOWNCLIA [id number] [place] [address] [place]#### 1798-8, 0-3 ####[facility] [id number] [place] [address] [place] Anion gap [Moles/Vol] 7 mmol/L Low 8-15 [facility] Comment on above: Order Comment: Speci men Type: BLOOD SPECIMENOrdering Facility: [facility] Address: [address] [place] [address] Performed By: #### 2 4323-8 ####[facility] MILLTOWNCLIA [id number] [place] [address] [place]#### 1798-8, 3040-3 ####[facility] [id number] [place] [address] [place] AST [Catalytic activity/Vol] 117 U/L High 13-35 [facility] Comment on above: Order Comment: Speci men Type: BLOOD SPECIMENOrdering Facility: [facility] Address: [address] [place] [id number] Performed By: #### 2 4323-8 ####[facility] MILLTOWNCLIA [id number] [place] [address] [place]#### 1798-8, 3040-3 ####[facility] [id number] [place] [address] [place] Bilirubin [Mass/Vol] 0.4 mg/dL Normal 0.2-1.3 [facility] Comment on above: Order Comment: Speci men Type: BLOOD SPECIMENOrdering Facility: [facility] Address: [address] [place] [address] Performed By: #### 2 4323-8 ####[facility] MILLTOWNCLIA [id number] [place] [address] [place]#### 1798-8, 3040-3 ####[facility] [id number] [place] [address] [place] Calcium [Mass/Vol] 10.6 mg/dL High 8.5-10.2 [facility] Comment on above: Order Comment: Speci men Type: BLOOD SPECIMENOrdering Facility: [facility] Address: [address] [place] [address] Performed By: #### 2 4323-8 ####[facility] MILLWNCLIA [id number] [place] [address] [place]#### 1798-8, 3040-3 ####[facility] [id number] [place] [address] [place] Chloride [Moles/Vol] 106 mmol/L Normal 98-107 [facility] Comment on above: Order Comment: Speci men Type: BLOOD SPECIMENOrdering Facility: [facility] Address: [address] [place] [id number] Performed By: #### 2 4323-8 ####[facility] MILLTOWNCLIA [id number] [place] [address] [place]#### 1798-8, 3040-3 ####[facility] [id number] [place] [address] [place] CO2 [Moles/Vol] 27 mmol/L Normal 22-30 [facility] Comment on above: Order Comment: Speci men Type: BLOOD SPECIMENOrdering Facility: [facility] Address: [address] [place] [address] Performed By: #### 2 4323-8 ####[facility] [id number] [place] [address] [place]#### 1798-8, 3040-3 ####[facility] [id number] [place] [address] [place] Creatinine [Mass/Vol] 0.86 mg/dL Normal 0.58-0.96 [facility] Comment on above: Order Comment: Speci men Type: BLOOD SPECIMENOrdering Facility: [facility] Address: [address] [place] [address] Performed By: #### 2 4323-8 ####[facility] [id number] [place] [address] [place]#### 1798-8, 3040-3 ####[facility] [id number] [place] [address] [place] Creatinine and Glomerular filtration rate.predicted panel (S/P/Bld) 73 mL/min/1.73m??? Normal >=60 [facility] Comment on above: Order Comment: Speci men Type: BLOOD SPECIMENOrdering Facility: [facility] Address: [address] [place] [address] Result Comment: Jazlyn mated Glomerular Filtration Rate (eGFR) is calculated using the 2020 CKD-EPI creatinine equation. This equation utilizes serum creatinine, sex, and age as parameters. The creatinine assay has traceable calibration to isotope dilution-mass spectrometry. Refer to KDIGO guidelines for clinical interpretation. In patients with unstable renal function, e.g. those with acute kidney injury, the eGFR may not accurately reflect actual GFR. Performed By: #### 2 4323-8 ####[facility] [id number] [place] [address] [place]#### 1798-8, 0-3 ####[facility] [id number] [address] [address] [place] Glucose [Mass/Vol] 108 mg/dL High 74-99 [facility] Comment on above: Order Comment: Speci men Type: BLOOD SPECIMENOrdering Facility: [facility] Address: [address] [place] [address] Result Comment: The [place] Diabetes Association (ADA) provides guidance for cutoff values for fasting glucose and random glucose. The ADA defines fasting as no caloric intake for at least 8 hours. Fasting plasma glucose results between 100 to 125 mg/dL indicate increased risk for diabetes (prediabetes). Fasting plasma glucose results greater than or equal to 126 mg/dL meet the criteria for diagnosis of diabetes. In the absence of unequivocal hyperglycemia, results should be confirmed by repeat testing. In a patient with classic symptoms of hyperglycemia or hyperglycemic crisis, random plasma glucose results greater than or equal to 200 mg/dL meet the criteria for diagnosis of diabetes. Reference: Standards of Medical Care in Diabetes 2016, [place] Diabetes Association. Diabetes Care. 2016.39(Suppl 1). Performed By: #### 2 4323-8 ####[facility] [id number] [place] [address] [place]#### 1798-8, 0-3 ####[facility] [facility] [id number] [address] [address] [place] Potassium [Moles/Vol] 4.3 mmol/L Normal 3.7-5.1 [facility] Comment on above: Order Comment: Speci men Type: BLOOD SPECIMENOrdering Facility: [facility] Address: [address] [place] [id number] Performed By: #### 2 4323-8 ####[facility] MILLTOWNCLIA [id number] [place] [address] [place]#### 1798-8, 3040-3 ####[facility] [facility] [id number] [address] [address] [place] Protein [Mass/Vol] 7.3 g/dL Normal 6.3-8.0 [facility] Comment on above: Order Comment: Speci men Type: BLOOD SPECIMENOrdering Facility: [facility] Address: [address] [place] [address] Performed By: #### 2 4323-8 ####[facility] MILLTOWNCLIA [id number] [place] [address] [place]#### 1798-8, 0-3 ####[facility] [id number] [place] [address] [place] Sodium [Moles/Vol] 140 mmol/L Normal 136-144 [facility] Comment on above: Order Comment: Speci men Type: BLOOD SPECIMENOrdering Facility: [facility] Address: [address] [place] [address] Performed By: #### 2 4323-8 ####[facility] MILLTOWNCLIA [id number] [place] [address] [place]#### 1798-8, 3040-3 ####[facility] [id number] [place] [id number] [place] Urea nitrogen [Mass/Vol] 16 mg/dL Normal 7-21 [facility] Comment on above: Order Comment: Speci men Type: BLOOD SPECIMENOrdering Facility: [facility] Address: [address] [place], [place] [address] Performed By: #### 2 4323-8 ####[facility] MILLTOWNCLIA [id number] [place] [address] [place]#### 1798-8, 3040-3 ####[facility] [id number] [place] [address] [place] Lipase SerPl-cCncon 10-16-19 25 Lipase [Catalytic activity/Vol] 77 U/L High 16-61 [facility] Comment on above: Order Comment: Speci men Type: BLOOD SPECIMENOrdering Facility: [facility] Address: [address] [place] [address] Performed By: #### 2 4323-8 ####[facility] [id number] [place] [address] [place]#### 1798-8, 3040-3 ####[facility] [id number] [place] [address] [place] No Panel InformationOrdered By: Cc Provider on 10-16-2024 Interpretation and review of laboratory results Abnormal [facility] CNOVon 09-19-2024 CNOV Office Visit (FAMPWS) BETSY RODRIGEZ ([id number]) 1955 F Date Time Provider Department 09/19/24 9:40 AM GIRISH LEMOS During your visit today, we recorded the following information about you: Pulse Respiration Blood pressure Weight 73/minute 18/minute 124/68 74.9 kg Girish Lemos MD 09/19/2024 1:08 PM Signed Chief Complaint Patient presents with: Blood Pressure: Recheck-losartan increased to 50mg.No note of call back from [facility] [place] around 09/03/24 as requested with readings. Patient reports am readings higher but was advised by visiting nurse to take prior to medication. HPI Betsy Rodrigez is a 68 year old female who presents here today for Above Complaints. HTN: Ms. Rodrigez indicates that she is feeling well and denies any symptoms referable to elevated blood pressure. Patient's losartan increased to 50 mg daily at last OV. Specifically denies chest pain, palpitations, dyspnea, and peripheral edema. Admits to occasional headaches. Patient denies any side effects of her medication(s) and is compliant with their regimen. She does check BP's away from this office with average BP's in the 130/70's range. Betsy denies regular aerobic exercise. She watches her diet for sodium, low fat and low cholesterol some of the time. Last 3 Encounter BP Readings: Date: BP: 09/19/2024 124/68 08/19/2024 164/82[ROSALVA BP[ 07/15/2024 157/80[ROSALVA BP[ Past medical history, appointments, medications, allergies reviewed. Previous Medical History PAST MEDICAL HISTORY Diagnosis Date Anxiety with depression Chronic back pain Chronic kidney disease (CKD), stage III (moderate) (HCC) Colon polyp tubular adenoma [address] 07/16 to 08/17 DDD (degenerative disc disease), lumbar seeing Dr. Johnson Dysphagia Dr. Stiles Ectopic 1991 GERD (gastroesophageal reflux disease) History of prediabetes Hyperlipidemia Hypertension Hypothyroidism Obesity (BMI 30.0-34.9) Other pulmonary embolism without acute cor pulmonale (HCC) Pneumonia due to [facility] virus Requiring intubation Previous Surgical History PAST SURGICAL HISTORY Procedure Laterality Date APPENDECTOMY 1966 BREAST LUMPECTOMY HX Bilateral BREAST RECONSTRUCTION Right SECTION HX 1974, 1976 CHOLECYSTECTOMY 2016 COLONOSCOPY 2016 repeat in 3 years, Dr. Stiles LYSIS OF ADHESIONS 1978 PAST SURGICAL HISTORY OF 1981 tubal reconstruction PAST SURGICAL HISTORY OF 2013 back surgery, microdiscectomy? PAST SURGICAL HISTORY OF Bilateral vericose vein stripping PAST SURGICAL HISTORY OF Bilateral heel spurs PAST SURGICAL HISTORY OF Bilateral surgery for epicondylitis PAST SURGICAL HISTORY OF cyst removal from eyelids TONSILLECTOMY HX 1957 Family History FAMILY HISTORY Problem Relation Age of Onset Cancer Mother lung Hypertension Mother Cancer Father lung Cancer Brother lung Stroke Maternal Grandmother or [place], patient unsure Coronary Artery Disease Maternal Grandfather No Known Problems Sister Patient Allergies ALLERGIES Allergen Reactions Meagan Inhibitors Rash Codeine Vomiting, Other: See Comments Headache Remeron [Mirtazapin* Other: See Comments Fatigue Jjrfyhr-Bnc-Ktd Red* Myalgia Michie Unknown Zetia [Ezetimibe] Myalgia Current Medications Current Outpatient Medications on File Prior to Visit Medication Sig losartan (COZAAR) 50 mg tablet Take 1 tablet by mouth once daily. fluticasone (FLONASE) 50 mcg/actuation nasal spray Use 2 Sprays in each nostril once daily. Rinse mouth after use. levothyroxine (SYNTHROID) 25 mcg tablet Take 1 tablet by mouth once daily. potassium chloride (K-TAB) 10 mEq tablet Take two tablets daily NEXLETOL 180 mg tablet once daily. calcium carbonate (CALCIUM 500 ORAL) Take 1,000 mg by mouth once daily. HYDROcodone-acetamin ophen (NORCO) 5-325 mg per tablet Take 1 tablet by mouth every 8 hours as needed for pain. albuterol (PROVENTIL) 2.5 mg /3 mL (0.083 %) nebulizer solution Use 3 mL via nebulizer every 4 hours as needed for Wheezing/Shortness of Breath. Use over 5-15minutes. Omeprazole 40 mg capsule Take 1 capsule by mouth twice daily. gabapentin (NEURONTIN) 400 mg capsule Take 400 mg by mouth two times a day. mv,jaci,iron,mn/folic acid/chol (ZFDH-CXXM-ZSHXZ, PABA, ORAL) Take 1 tablet by mouth once daily. (Patient not taking: Reported on 08/22/2022) Minoxidil 2 % external solution Apply 1 mL to affected area twice daily. No current facility-administere d medications on file prior to visit. Social History Social History Tobacco Use Smoking status: Former Current packs/day: 0.00 Average packs/day: 1 pack/day for 49.0 years (49.0 ttl pk-yrs) Types: Cigarettes Start date: 08/14/1967 Quit date: 08/14/2016 Years since quittin.1 Smokeless tobacco: Never Substance Use Topic (more content not included)... Normal [facility] Alexandrea 08-27-2024 [facility] Telephone (FAMPWS) BETSY RODRIGEZ ([id number]) 1955 F Date Time Provider Department 08/27/24 GIRISH LEMOS During your visit today, we recorded the following information about you: Marta Meadows RN 08/27/2024 9:44 AM Signed Jeanne- Visiting Nurse [facility]- reports she received a referral from patient's insurance company, once patient's losartan was increased, for their 3 mth monitoring program. [facility] monitors quality of life, checks VS's, monitor's BP's, POX, weight, educates on salt intake, all with goal of keeping patient out of the hospital. Insurance usually sends a letter to pcp to let pcp know they have enrolled patient in the monitoring program. Pt's losartan was increased from 25 mg to 50 mg on 08-19-24. Jeanne noted BP readings are higher in the mornings (before medication), and lower in the afternoons: on 08-25 BP at 8 am: 168/88, at 4 pm: 148/85, on 08-26 BP at 8 am: 173/89, at 4 pm: 153/89. HR is running 55-62, POX is stable, weight is stable. Jeanne will fax VS readings to pcp after seeing patient for 3 weeks. Given fax number. Girish Lemos MD 08/27/2024 10:17 AM Signed BP still high on this dosage after about 1 week. Please send updated BP in 1 week. If still high then, will increase to 100 mg daily. Rachael Baker RN 08/27/2024 10:51 AM Signed Jeanne- [facility] [place] called and is notified of providers message and instructions. She voices understanding and will send updated Bps in one week. Rachael Baker RN Allergies As of Date: 08/27/2024 Noted Allergy Reaction MEAGAN INHIBITORS 10/06/2017 2 - Rash CODEINE 10/06/2017 11 - Vomiting 14 - Other: See Comments Comments: Headache REMERON (MIRTAZAPINE) 01/17/2021 14 - Other: See Comments Comments: Fatigue UCILXVS-BPD-QON REDUCTASE INHIBIT*11/14/2017 17 - Myalgia WALNUT 10/06/2017 16 - Unknown ZETIA (EZETIMIBE) 01/17/2021 17 - Myalgia Date Reviewed: 08/19/2024 Reviewed by: Krystin Zimmerman LPN - Fully Assessed Reason for Visit: Patient Update [1234] Prescriptions as of 08/27/2024 - losartan (COZAAR) 50 mg tablet Take 1 tablet by mouth once daily. - fluticasone (FLONASE) 50 mcg/actuation nasal spray Use 2 Sprays in each nostril once daily. Rinse mouth after use. - levothyroxine (SYNTHROID) 25 mcg tablet Take 1 tablet by mouth once daily. - potassium chloride (K-TAB) 10 mEq tablet Take two tablets daily - NEXLETOL 180 mg tablet once daily. - calcium carbonate (CALCIUM 500 ORAL) Take 1,000 mg by mouth once daily. - HYDROcodone-acetamin ophen (NORCO) 5-325 mg per tablet Take 1 tablet by mouth every 8 hours as needed for pain. - mv,jaci,iron,mn/folic acid/chol (WDZD-UHNP-UTXZN, PABA, ORAL) Take 1 tablet by mouth once daily. - Minoxidil 2 % external solution Apply 1 mL to affected area twice daily. - albuterol (PROVENTIL) 2.5 mg /3 mL (0.083 %) nebulizer solution Use 3 mL via nebulizer every 4 hours as needed for Wheezing/Shortness of Breath. Use over 5-15minutes. - Omeprazole 40 mg capsule Take 1 capsule by mouth twice daily. - gabapentin (NEURONTIN) 400 mg capsule Take 400 mg by mouth two times a day. Problem List As Of Date 08/27/2024 Noted Resolved Hypertension [I10] Hypothyroidism [E03.9] GERD (gastroesophageal reflux disease) [K21.9] Hyperlipidemia [E78.5] DDD (degenerative disc disease), lumbar [M51.36* Chronic back pain [M54.9, G89.29] Obesity (BMI 30.0-34.9) [E66.811] Anxiety with depression [F41.8] Other acute pulmonary embolism, unspecified whe*01/24/2023 Stage 3 chronic kidney disease (HCC) [N18.30] 02/20/2023 Pulmonary hypertension (HCC) [I27.20] 06/22/2023 Encounter Status:Closed by RACHAEL BAKER on 08/27/24 [facility] CNOVon 08-19-2024 CNOV Office Visit (FAMPWS) BETSY RODRIGEZ ([id number]) 1955 F Date Time Provider Department 08/19/24 10:20 AM JEANETTE BERRIOS During your visit today, we recorded the following information about you: Pulse Respiration Blood pressure Weight 58/minute 18/minute 164/82 77.2 kg Jeanette Berrios APRN.CNP 08/19/2024 12:04 PM Signed 08/19/2024 Patient presents with: BP Check SUBJECTIVE: This is a 68 year old that is here today for Above Complaints. BP elevated at last office appointment. No medication changes made at that time. Not checking BP at home. Denies visual changes, headaches, dizziness, lightheadedness, slurred speech, facial drooping, extremity numbness, tingling or weakness PAST MEDICAL HISTORY Diagnosis Date Anxiety with depression Chronic back pain Chronic kidney disease (CKD), stage III (moderate) (HCC) Colon polyp tubular adenoma [address] 07/16 to 08/17 DDD (degenerative disc disease), lumbar seeing Dr. Johnson Dysphagia Dr. Stiles Ectopic 1991 GERD (gastroesophageal reflux disease) History of prediabetes Hyperlipidemia Hypertension Hypothyroidism Obesity (BMI 30.0-34.9) Other pulmonary embolism without acute cor pulmonale (HCC) Pneumonia due to [place] [address] virus Requiring intubation ALLERGIES Meagan Inhibitors, Codeine, Remeron [Mirtazapine], Tnisgif-Dvo-Vfv Reductase Inhibitors, Michie, and Zetia [Ezetimibe] MEDICATIONS Current Outpatient Medications Medication Sig fluticasone (FLONASE) 50 mcg/actuation nasal spray Use 2 Sprays in each nostril once daily. Rinse mouth after use. levothyroxine (SYNTHROID) 25 mcg tablet Take 1 tablet by mouth once daily. potassium chloride (K-TAB) 10 mEq tablet Take two tablets daily losartan (COZAAR) 25 mg tablet Take 1 tablet by mouth once daily. NEXLETOL 180 mg tablet once daily. (Patient not taking: Reported on 01/08/2024) calcium carbonate (CALCIUM 500 ORAL) Take 1,000 mg by mouth once daily. HYDROcodone-acetamin ophen (NORCO) 5-325 mg per tablet Take 1 tablet by mouth every 8 hours as needed for pain. mv,jaci,iron,mn/folic acid/chol ([id number]-PUTS-WJTKJ, PABA, ORAL) Take 1 tablet by mouth once daily. (Patient not taking: Reported on 08/22/2022) Minoxidil 2 % external solution Apply 1 mL to affected area twice daily. albuterol (PROVENTIL) 2.5 mg /3 mL (0.083 %) nebulizer solution Use 3 mL via nebulizer every 4 hours as needed for Wheezing/Shortness of Breath. Use over 5-15minutes. Omeprazole 40 mg capsule Take 1 capsule by mouth twice daily. gabapentin (NEURONTIN) 400 mg capsule Take 400 mg by mouth two times a day. No current facility-administere d medications for this visit. Medications and allergies reviewed by this provider. SOCIAL HISTORY Social History Tobacco Use Smoking status: Former Current packs/day: 0.00 Average packs/day: 1 pack/day for 49.0 years (49.0 ttl pk-yrs) Types: Cigarettes Start date: 08/14/1967 Quit date: 08/14/2016 Years since quittin.0 Smokeless tobacco: Never Substance Use Topics Alcohol use: No Drug use: No REVIEW OF SYSTEMS All other reviewed and negative other than HPI. OBJECTIVE: BP 162/84 Pulse (!) 58 Resp 18 Wt 77.2 kg (170 lb 3.1 oz) SpO2 98% BMI 30.15 kg/m? . Vital signs reviewed by this provider. APPEARANCE Well appearing, alert, in no acute distress, well-hydrated, well nourished. Mammogram Screening due on 07/16/2020 Colorectal Cancer Screening due on 03/28/2023 Advance Directive Discussion Never done Covid-19 Vaccine(2023- season) due on 05/18/2024 BP Controlled (<130/80) due on 06/22/2024 Lung Cancer Screening due on 01/20/2025 Serum Creatinine due on 07/15/2025 Annual PCP Team Chronic Disease Visit due on 08/19/2025 Diabetes Screening due on 07/15/2027 Lipid Screening due on 02/21/2028 RSV Vaccine(1 - 1-dose 75+ series) due on 2029 Bone Density Screening Completed Influenza Vaccine Completed Hepatitis C Screening Completed Pneumococcal Vaccine: 65+ Completed DTaP,Tdap,Td Vaccine Discontinued Shingrix Vaccine Discontinued ASSESSMENT/PLAN: 1. Essential hypertension - ICD9: 401.9, ICD10: I10 - Uncontrolled - Increase losartan - Recommend home blood pressure monitoring, to bring results to next visit - Encouraged sodium restriction, DASH or Mediterranean diet - Recommend regular aerobic exercise - Discussed need for and benefit of weight loss. BMI 30.15 kg/(m2) - Follow up in 6 months for hypertension visit - LOSARTAN 50 MG TABLET Jeanette Berrios APRN.CNP Prescription instructions reviewed with patient as applicable. Patient advised if symptoms do not improve or if symptoms worsen sooner, to contact their primary care physician. Potential red flag symptoms discussed with the patient. Reviewed appropriate action plan to take if red flag symptoms occur. Patient agreeable to treatmen (more content not included)... Normal [facility] CNOVon 07-15-2024 CNOV Office Visit (FAMPWS) BETSY RODRIGEZ ([id number]) 1955 F Date Time Provider Department 07/15/24 9:00 AM JEANETTE BERRIOS During your visit today, we recorded the following information about you: Pulse Respiration Blood pressure Weight 50/minute 18/minute 157/80 79.4 kg Jeanette Berrios APRN.CNP 07/15/2024 10:23 AM Signed 07/15/2024 Patient presents with: F/U 6 months SUBJECTIVE: This is a 68 year old that is here today for Above Complaints. Since last office visit has been in good health without ER visits or hospitalizations. HTN: Patient is compliant with meds Yes Monitors bp at home: No. Denies side effects: Yes. Chest pain: No. Dyspnea: No. Edema: No. Palpitations: No. Syncope: No. Headache: No. Dizziness: No. ASTHMA/Pulmonary HTN:/ARMANDO: Follows with Dr. Gonsalves, bag repairer. Last visit in May. CPAP settings decreased and is to follow-up in 3 months. HYPOTHYROIDISM: taking synthroid as prescribed without side effects. PREDIABETES: tries to eat lower carbohydrate diet and stay active. Denies visual changes, polyuria or polydipsia. Reports did just get back from cruise and ate a lot of ice cream cones. CKD: eats low salt diet and avoids NSAID products Follows with [facility] with last appointment on 12/10/2023. Restarted Bempedoic Acid a few weeks ago. Next follow-up in November. PAST MEDICAL HISTORY Diagnosis Date Anxiety with depression Chronic back pain Chronic kidney disease (CKD), stage III (moderate) (HCC) Colon polyp tubular adenoma [address] 07/16 to 08/17 DDD (degenerative disc disease), lumbar seeing Dr. Johnson Dysphagia Dr. Stiles Ectopic 1991 GERD (gastroesophageal reflux disease) History of prediabetes Hyperlipidemia Hypertension Hypothyroidism Obesity (BMI 30.0-34.9) Other pulmonary embolism without acute cor pulmonale (HCC) Pneumonia due to [facility] virus Requiring intubation ALLERGIES Meagan Inhibitors, Codeine, Remeron [Mirtazapine], Mtyazky-Kly-Imf Reductase Inhibitors, Michie, and Zetia [Ezetimibe] MEDICATIONS Current Outpatient Medications Medication Sig levothyroxine (SYNTHROID) 25 mcg tablet Take 1 tablet by mouth once daily. potassium chloride (K-TAB) 10 mEq tablet Take two tablets daily losartan (COZAAR) 25 mg tablet Take 1 tablet by mouth once daily. fluticasone (FLONASE) 50 mcg/actuation nasal spray Use 2 Sprays in each nostril once daily. Rinse mouth after use. NEXLETOL 180 mg tablet once daily. (Patient not taking: Reported on 01/08/2024) calcium carbonate (CALCIUM 500 ORAL) Take 1,000 mg by mouth once daily. HYDROcodone-acetamin ophen (NORCO) 5-325 mg per tablet Take 1 tablet by mouth every 8 hours as needed for pain. mv,jaci,iron,mn/folic acid/chol (NRTN-BUAE-CRSVO, PABA, ORAL) Take 1 tablet by mouth once daily. (Patient not taking: Reported on 08/22/2022) Minoxidil 2 % external solution Apply 1 mL to affected area twice daily. albuterol (PROVENTIL) 2.5 mg /3 mL (0.083 %) nebulizer solution Use 3 mL via nebulizer every 4 hours as needed for Wheezing/Shortness of Breath. Use over 5-15minutes. Omeprazole 40 mg capsule Take 1 capsule by mouth twice daily. gabapentin (NEURONTIN) 400 mg capsule Take 400 mg by mouth two times a day. No current facility-administere d medications for this visit. Medications and allergies reviewed by this provider. SOCIAL HISTORY Social History Tobacco Use Smoking status: Former Current packs/day: 0.00 Average packs/day: 1 pack/day for 49.0 years (49.0 ttl pk-yrs) Types: Cigarettes Start date: 08/14/1967 Quit date: 08/14/2016 Years since quittin.9 Smokeless tobacco: Never Substance Use Topics Alcohol use: No Drug use: No REVIEW OF SYSTEMS All other reviewed and negative other than HPI. OBJECTIVE: BP 142/80 Pulse (!) 56 Resp 18 Wt 79.4 kg (175 lb 0.7 oz) SpO2 97% BMI 31.01 kg/m? . Vital signs reviewed by this provider. APPEARANCE Well appearing, alert, in no acute distress, well-hydrated, well nourished. EYES conjunctiva and sclera normal. EARS External ears normal, canals clear NECK Supple, no adenopathy; thyroid symmetric, normal size, no bruits HEART RRR with normal S1 and S2, no murmurs, no gallops, no JVD appreciated LUNG clear to auscultation. No wheezes, rhonchi or rales EXTREMITIES Extremities normal, No deformities, No skin discoloration, and No edema SKIN Skin color, texture, turgor normal, no suspicious rashes or lesions to exposed skin Latest Ref Rng 01/18/2024 WBC 3.70 - 11.00 k/uL 4.22 RBC 3.90 - 5.20 m/uL 4.81 Hemoglobin 11.5 - 15.5 g/dL 13.8 Hematocrit 36.0 - 46.0 % 41.8 MCV 80.0 - 100.0 fL 86.9 MCH 26.0 - 34.0 pg 28.7 MCHC 30.5 - 36.0 g/dL 33.0 RDW-CV 11.5 - 15.0 % 13.0 Platelet Count 150 - 400 k/uL 332 MPV 9.0 - 12.7 fL 10.7 Neut% % 49.8 Abs Neut (ANC) 1.45 - 7 (more content not included)... Normal [facility] Comprehensive metabolic 2000 panelon 07-15-2024 Albumin [Mass/Vol] 4.5 g/dL Normal 3.9-4.9 [facility] Comment on above: Order Comment: Speci men Type: BLOOD SPECIMEN Ordering Facility: [facility] Address: [address] [place] [address] Performed By: #### 2 2314-9, 13369-2, 5194-11 #### [facility] CLIA [id number] [address] [place] [address] [place] ALP [Catalytic activity/Vol] 86 U/L Normal 34-123 [facility] Comment on above: Order Comment: Speci men Type: BLOOD SPECIMEN Ordering Facility: [facility] Address: [address] [place] [address] Performed By: #### 2 2314-9, 07037-9, 3 #### [facility] CLIA [id number] [address] [place] [address] [place] ALT [Catalytic activity/Vol] 20 U/L Normal 7-38 [facility] Comment on above: Order Comment: Speci men Type: BLOOD SPECIMEN Ordering Facility: [facility] Address: [address] [place] [address] Performed By: #### 2 2314-9, 31551-7, 5194-11 #### [facility] CLIA [id number] [address] [place] [address] [place] Anion gap [Moles/Vol] 11 mmol/L Normal 8-15 [facility] Comment on above: Order Comment: Speci men Type: BLOOD SPECIMEN Ordering Facility: [facility] Address: [address] [place] [address] Performed By: #### 2 2314-9, 28109-9, 5194-3 #### [facility] CLIA [id number] [address] [place] [address] [place] AST [Catalytic activity/Vol] 27 U/L Normal 13-35 [facility] Comment on above: Order Comment: Speci men Type: BLOOD SPECIMEN Ordering Facility: [facility] Address: [address] [place] [address] Performed By: #### 2 2314-9, 58248-5, 5194-3 #### [facility] CLIA [id number] [address] [place] [address] [place] Bilirubin [Mass/Vol] 0.3 mg/dL Normal 0.2-1.3 [facility] Comment on above: Order Comment: Speci men Type: BLOOD SPECIMEN Ordering Facility: [facility] Address: [address] [place] [address] Performed By: #### 2 2314-9, 14479-9, 5194-3 #### [facility] CLIA [id number] [address] [place] [address] [place] Calcium [Mass/Vol] 9.7 mg/dL Normal 8.5-10.2 [facility] Comment on above: Order Comment: Speci men Type: BLOOD SPECIMEN Ordering Facility: [facility] Address: [address] [place] [address] Performed By: #### 2 2314-9, 39260-3, 5194-3 #### [facility] CLIA [id number] [address] [place] [address] [place] Chloride [Moles/Vol] 108 mmol/L High 98-107 [facility] Comment on above: Order Comment: Speci men Type: BLOOD SPECIMEN Ordering Facility: [facility] Address: [address] [place] [address] Performed By: #### 2 2314-9, 28409-2, 5195-3 #### [facility] CLIA [id number] [address] [place] [address] [place] CO2 [Moles/Vol] 25 mmol/L Normal 22-30 [facility] Comment on above: Order Comment: Speci men Type: BLOOD SPECIMEN Ordering Facility: [facility] Address: [address] [place] [address] Performed By: #### 2 2314-9, 79887-3, 5195-3 #### [facility] CLIA [id number] [address] [place] [address] [place] Creatinine [Mass/Vol] 0.90 mg/dL Normal 0.58-0.96 [facility] Comment on above: Order Comment: Speci men Type: BLOOD SPECIMEN Ordering Facility: [facility] Address: [address] [place] [address] Performed By: #### 2 2314-9, 06497-3, 5195-3 #### [facility] CLIA [id number] [address] [place] [address] [place] Creatinine and Glomerular filtration rate.predicted panel (S/P/Bld) 69 mL/min/1.73m??? Normal >=60 [facility] Comment on above: Order Comment: Speci men Type: BLOOD SPECIMEN Ordering Facility: [facility] Address: [address] [place] [address] Result Comment: Jazlyn mated Glomerular Filtration Rate (eGFR) is calculated using the 2020 CKD-EPI creatinine equation. This equation utilizes serum creatinine, sex, and age as parameters. The creatinine assay has traceable calibration to isotope dilution-mass spectrometry. Refer to KDIGO guidelines for clinical interpretation. In patients with unstable renal function, e.g. those with acute kidney injury, the eGFR may not accurately reflect actual GFR. Performed By: #### 2 2314-9, 23725-6, 5194-11 #### [facility] CLIA [id number] [address] [address] [place] Glucose [Mass/Vol] 81 mg/dL Normal 74-99 [facility] Comment on above: Order Comment: Pati fajardo Type: BLOOD SPECIMEN Ordering Facility: [facility] Address: [address] [place] [address] Result Comment: The [place] Diabetes Association (ADA) provides guidance for cutoff values for fasting glucose and random glucose. The ADA defines fasting as no caloric intake for at least 8 hours. Fasting plasma glucose results between 100 to 125 mg/dL indicate increased risk for diabetes (prediabetes). Fasting plasma glucose results greater than or equal to 126 mg/dL meet the criteria for diagnosis of diabetes. In the absence of unequivocal hyperglycemia, results should be confirmed by repeat testing. In a patient with classic symptoms of hyperglycemia or hyperglycemic crisis, random plasma glucose results greater than or equal to 200 mg/dL meet the criteria for diagnosis of diabetes. Reference: Standards of Medical Care in Diabetes 2016, [place] Diabetes Association. Diabetes Care. 2016.39(Suppl 1). Performed By: #### 2 2314-9, 19483-2, 5194-11 #### [facility] CLIA [id number] [address] [place], [place] [id number] [place] Potassium [Moles/Vol] 3.8 mmol/L Normal 3.7-5.1 [facility] Comment on above: Order Comment: Pati fajardo Type: BLOOD SPECIMEN Ordering Facility: [facility] Address: [address] [place] [address] Performed By: #### 2 2314-9, 86131-7, 5194-11 #### [facility] CLIA [id number] [address] [address] [place] Protein [Mass/Vol] 6.9 g/dL Normal 6.3-8.0 [facility] Comment on above: Order Comment: Speci men Type: BLOOD SPECIMEN Ordering Facility: [facility] Address: [address] [place] [address] Performed By: #### 2 2314-9, 14608-0, 3 #### [facility] CLIA [id number] [address] [place] [address] [place] Sodium [Moles/Vol] 144 mmol/L Normal 136-144 [facility] Comment on above: Order Comment: Speci men Type: BLOOD SPECIMEN Ordering Facility: [facility] Address: [address] [place] [address] Performed By: #### 2 2314-9, 11733-2, 5194-11 #### [facility] CLIA [id number] [address] [place] [address] [place] Urea nitrogen [Mass/Vol] 15 mg/dL Normal 7-21 [facility] Comment on above: Order Comment: Speci men Type: BLOOD SPECIMEN Ordering Facility: [facility] Address: [address] [place] [address] Performed By: #### 2 2314-9, 94377-8, 5194-11 #### [facility] CLIA [id number] [address] [place] [address] [place] HbA1c (Bld)on 07-15-2024 Average glucose Estimated from glycated hemoglobin (Bld) [Mass/Vol] 120 mg/dL Normal [facility] Comment on above: Order Comment: Speci men Type: BLOOD SPECIMEN Ordering Facility: [facility] Address: [address] [place] [address] Result Comment: eAG: (Estimated average glucose) is a calculated value from HgbA1c and is home furnishings sales representative of the average blood glucose level in the last 2-3 month period. Performed By: #### 5 5454-3 #### [facility] CLIA [id number] [address] [place] [address] [place] HbA1c (Bld) [Mass fraction] 5.8 % High 4.3-5.6 [facility] Comment on above: Order Comment: Speci men Type: BLOOD SPECIMEN Ordering Facility: [facility] Address: [address] [place] [address] Result Comment: [place] Diabetes Association guidelines indicate that patients with HgbA1c in the range 5.7-6.4% are at increased risk for development of diabetes, and intervention by lifestyle modification may be beneficial. HgbA1c greater or equal to 6.5% is considered diagnostic of diabetes. Performed By: #### 5 5454-3 #### [facility] CLIA [id number] [address] [place] [address] [place] [facility] Pulmonary Visit Reporton Pulmonary Visit Report Normal [facility] CV ARTERIAL U OR L SINGLE [place] [address] Patient: BETSY RODRIGEZ Phone#: : 1955 Age: 68 Gender: F Pt. Type: Out Account: [id number] Location: [facility] Ordering: XUAN GARCIA Exam Date: 06/13/2024/7:48 Family Phys: GIRISH LEMOS Charge Code: [id number] Physician: [place] Order #: [id number] Dose#: PROCEDURE: ARTERIAL BILAT U OR L SINGLE PHYSIOLOGY COMPARISON: None. INDICATIONS: PAD TECHNIQUE: Resting continuous-wave Doppler recordings were obtained from the femoral, popliteal, tibial and dorsalis pedis arteries. Resting volume pulse recordings and segmental limb pressures were obtained at the upper thigh, lower thigh, upper calf and ankle levels. CONTINUOUS-WAVE DOPPLER RIGHT LEFT Posterior Tibial Artery Triphasic Triphasic Dorsalis Pedis Triphasic Biphasic SEGMENTAL SYSTOLIC LIMB PRESSURES RIGHT (mmHg) LEFT (mmHg) Brachial: 181 184 Ankle (DPA): 190 186 Ankle (SOCIAL SCIENCE RESEARCH ASSISTANT): [phone] ANKLE BRACHIAL INDEX RIGHT LEFT 1.14 1.05 Conveyor Belt Repairer: KP FINDINGS: Right Lower Extremity: The right lower extremity demonstrates normal triphasic Doppler signals at the posterior tibial, and dorsalis pedis arteries. Volume pulse recordings are normal throughout the extremity demonstrating a sharp systolic peak and prominent dicrotic notch. Left Lower Extremity: Continued Report - Page 2 of 2 Patient: BETSY RODRIGEZ Phone#: : 1955 Age: 68 Gender: F Pt. Type: Out Account: [id number] Location: [facility] Ordering: XUAN GARCIA Exam Date: 06/13/2024/7:48 Family Phys: GIRISH LEMOS Charge Code: [id number] Physician: [place] Order #: [id number] Dose#: The left lower extremity demonstrates normal triphasic Doppler signals at the posterior tibial artery. Biphasic Doppler signal is present at the dorsalis pedis artery. Volume pulse recordings are normal throughout the extremity demonstrating a sharp systolic peak and prominent dicrotic notch. CONCLUSION: 1. Right DARIUS is 1.14. 2. Left DARIUS is 1.05. Dictated by: Seema Bonner MD on 06/13/2024 at 13:10 Approved by: Seema Bonner MD on 06/13/2024 at 13:12 Normal [facility] Fluor Guidance for Spine Inj on 06-02-2024 Fluor Guidance for Spine Inj Normal [facility] MR/POSTOP.ANEon 06-02-2024 MR/POSTOP.ANE Normal [facility] MR/[id number] 06-02-2024 MR/POSTOPAN2 Normal [facility] Operative Reporton Operative Report Normal [facility] Echo Complete W/ Contraston 04-01-2024 Echo Complete W/ Contrast Normal [facility] Pulmonary Visit Reporton Pulmonary Visit Report Normal [facility] LIPID PROFILEon 03-06-2024 Cholesterol [Mass/Vol] 231 mg/dL Normal 0 - 240 [facility] Comment on above: Performed By: #### 2 [id number] #### [facility],[address] [place] [address] Cholesterol in HDL [Mass/Vol] 66 mg/dL High 40 - 60 [facility] Comment on above: Performed By: #### 2 [id number] #### [facility],[address] [place] [address] Cholesterol in LDL [Mass/Vol] 151 mg/dL High 0 - 129 [facility] Comment on above: Performed By: #### 2 [id number] #### [facility],[address] [place] [address] Cholesterol.total/Choles terol in HDL [Mass ratio] 3.5 {ratio} Normal 0.0 - 5.0 [facility] Comment on above: Performed By: #### 2 [id number] #### [facility],[address] [place] [address] Lipid 1996 panel Normal [facility] Comment on above: Result Comment: LIPI D PROFILE Performed By: #### 2 [id number] #### [facility],[address] [place] [address] Triglyceride [Mass/Vol] 71 mg/dL Normal 0 - 150 [facility] Comment on above: Performed By: #### 2 [id number] #### [facility],[address] [place] [address] LIPID PROFILEon 06-21-2023 Cholesterol [Mass/Vol] 159 mg/dL Normal 0 - 240 [facility] Comment on above: Performed By: #### 2 [id number] #### [facility],[address] [place] [address] Cholesterol in HDL [Mass/Vol] 62 mg/dL High 40 - 60 [facility] Comment on above: Performed By: #### 2 [id number] #### [facility],[address] [place] [address] 36609 Cholesterol in LDL [Mass/Vol] 86 mg/dL Normal 0 - 129 [facility] Comment on above: Performed By: #### 2 [id number] #### [facility],[address] [place] [address] 21436 Cholesterol.total/Choles terol in HDL [Mass ratio] 2.6 {ratio} Normal 0.0 - 5.0 [facility] Comment on above: Performed By: #### 2 [id number] #### [facility],[address] [place] [address] Lipid 1996 panel Normal [facility] Comment on above: Result Comment: LIPI D PROFILE Performed By: #### 2 72612 #### [facility],[address] [place] [address] Triglyceride [Mass/Vol] 57 mg/dL Normal 0 - 150 [facility] Comment on above: Performed By: #### 2 [id number] #### [facility],[address] [place] [address] CBC W Auto Differential pane l (Bld)on 02-20-2023 Basophils (Bld) [#/Vol] 0.05 10*3/uL <0.11 k/uL [facility] Basophils/100 WBC (Bld) 0.9 % [facility] Differential cell count method Nom (Bld) Auto [facility] Eosinophils (Bld) [#/Vol] 0.15 10*3/uL <0.46 k/uL [facility] Eosinophils/100 WBC (Bld) 2.8 % [facility] Erythrocyte distribution width (RBC) [Ratio] 13.0 % 11.5 - 15.0 % [facility] Hematocrit (Bld) [Volume fraction] 46.0 % 36.0 - 46.0 % [facility] Hemoglobin (Bld) [Mass/Vol] 14.9 g/dL 11.5 - 15.5 g/dL [facility] Immature granulocytes (Bld) [#/Vol] <0.10 k/uL [facility] Immature granulocytes/100 WBC (Bld) 0.4 % [facility] Lymphocytes (Bld) [#/Vol] 1.41 10*3/uL 1.00 - 4.00 k/uL [facility] Lymphocytes/100 WBC (Bld) 26.2 % [facility] MCH (RBC) [Entitic mass] 28.8 pg 26. 0 - 34.[address] [facility] MCHC (RBC) [Mass/Vol] 32.4 g/dL 30.5 - 36.0 g/dL [facility] MCV (RBC) [Entitic vol] 88.8 fL 80.0 - 100.[address] [facility] Monocytes (Bld) [#/Vol] 0.66 10*3/uL <0.87 k/uL [facility] Monocytes/100 WBC (Bld) 12.2 % [facility] Neutrophils (Bld) [#/Vol] 3.10 10*3/uL 1.45 - 7.50 k/uL [facility] Neutrophils/100 WBC (Bld) 57.5 % [facility] Nucleated RBC (Bld) [#/Vol] <0.01 k/uL [facility] Nucleated RBC/100 WBC (Bld) [Ratio] 0.0 /[address] [facility] Platelet mean volume (Bld) [Entitic vol] 10.9 fL 9.0 - 12.[address] [facility] Platelets (Bld) [#/Vol] 308 10*3/uL 150 - 400 k/uL [facility] RBC (Bld) [#/Vol] 5.18 10*6/uL 3.90 - 5.2 0 m/uL [facility] WBC (Bld) [#/Vol] 5.39 10*3/uL 3.70 - 11. 00 k/uL [facility] XR FOOT GENERAL 3V AP/LAT/OB L LEFTon 01-24-[address] [facility] DXA-AXIAL SKELETONon 023 LOWEST T-SCORE -0.[address] [facility] Absolute lymphocyte counton 09-13-2022 Lymphocytes Auto (Unsp spec) [#/Vol] 1.57 10*3/uL 0.83-4.51 [facility] Work Phone: Basophil percentageon 2021 Basophils/100 WBC (Bld) 0.6 % 0-1 [facility] Work Phone: Bilirubin [Mass/Vol] 0.50 mg/dL 0.20-1.00 [facility] Work Phone: Comment on above: For patients on eltr ombopag therapy, use of Dimension Comins TBIL is not recommended. Chloride [Moles/Vol] 107 mmol/L 98-107 [facility] Work Phone: Eosinophils/100 WBC (Bld) 1.8 % 0-5 [facility] Work Phone: Glucose [Mass/Vol] 102 mg/dL 74-106 [facility] Work Phone: Comment on above: Fasting Glucose resu lt from 100 to 125 mg/dL suggests IMPAIRED HOMEOSTASIS per A.D.A. criteria. Neutrophils (Bld) [#/Vol] 4.4 10*3/uL 2.0-7.7 [facility] Work Phone: Neutrophils/100 WBC (Bld) 62.2 % 47-70 [facility] Work Phone: Potassium [Moles/Vol] 4.9 mmol/L 3.5-5.1 [facility] Work Phone: Comment on above: Moderate Hemolysis, Result may be falsely increased. Protein [Mass/Vol] 7.2 g/dL 6.4-8.2 [facility] Work Phone: Sodium [Moles/Vol] 141 mmol/L 136-145 [facility] Work Phone: WBC (Bld) [#/Vol] 7.1 10*3/uL 4.4-11.0 [facility] Work Phone: Blood erythrocytes count (nu mber/volume)on 09-13-2022 RBC (Bld) [#/Vol] 5.37 10*6/uL 4.2-5.4 [facility] Work Phone: Blood hemoglobin measurement (mass/volume)on 09-13-2022 Hemoglobin (Bld) [Mass/Vol] 15.8 g/dL 12.0-15.0 [facility] Work Phone: Blood lymphocytes/100 leukoc yteson 09-13-2022 Lymphocytes/100 WBC (Bld) 22.2 % 19-41 [facility] Work Phone: Blood monocytes/100 leukocyt eson 09-13-2022 Monocytes/100 WBC (Bld) 12.4 % 0-10 [facility] Work Phone: [phone] Blood platelet mean volumeon 09-13-2022 Platelet mean volume (Bld) [Entitic vol] 9.7 fL 6.2-12.0 [facility] Work Phone: [phone] Determination of erythrocyte mean corpuscular volume (MCV)on 09-13-2022 MCV (RBC) [Entitic vol] 88.5 fL 81-99 [facility] Work Phone: [phone] Hematocrit Auto (Bld) [Volum e fraction]on 09-13-2022 Hematocrit (Bld) [Volume fraction] 47.5 % 37-47 [facility] Work Phone: [phone] Laboratory - Chemistry and C hemistry - challengeon 09-13-2022 ALP [Catalytic activity/Vol] 100 U/L 45-117 [facility] Work Phone: [phone] ALT [Catalytic activity/Vol] 69 U/L 13-56 [facility] Work Phone: [phone] CO2 [Moles/Vol] 27.0 mmol/L 21.0-32.0 [facility] Work Phone: [phone] Globulin (S) [Mass/Vol] 3.9 g/dL 2.2-4.2 [facility] Work Phone: [phone] Urea nitrogen/Creatinine [Mass ratio] 17.6 mg/mg 10-20 [facility] Work Phone: [phone] Laboratory - Hematology and Cell countson 09-13-2022 Erythrocyte distribution width (RBC) [Entitic vol] 42.7 fL 35.1-43.9 [facility] Work Phone: [phone] Erythrocyte distribution width (RBC) [Ratio] 13.1 % 11.6-14.6 [facility] Work Phone: [phone] Immature granulocytes/100 WBC (Bld) 0.800 % 0.0-0.9 [facility] Work Phone: [phone] Comment on above: IG% - Immature Granu locytes (promyelocytes, myelocytes and metamyelocytes) > 1% indicates that a LEFT SHIFT is Present. MCH (RBC) [Entitic mass] 29.4 pg 27.0-32.0 [facility] Work Phone: [phone] Nucleated RBC/100 WBC (Bld) [Ratio] 0 % 0-5 [facility] Work Phone: [phone] MCHC Auto (RBC) [Mass/Vol]on 09-13-2022 MCHC (RBC) [Mass/Vol] 33.3 g/dL 32-36 [facility] Work Phone: [phone] Panel Informationon 09-13 Estimated Creatinine Clearance Calc 41.81 ml/min [facility] Work Phone: [phone] Estimated GFR (MDRD) Amer 65 mL/min >60 [facility] Work Phone: [phone] Comment on above: GFR Calc Estimated GFR (MDRD) Non-Af Amer 54 mL/min >60 [facility] Work Phone: [phone] Comment on above: Non- GFR Calc Platelets bldon 09-13-2022 Platelets (Bld) [#/Vol] 336 10*3/uL 150-450 [facility] Work Phone: [phone] Serum or plasma albumin jayro urement (mass/volume)on 09-13-2022 Albumin [Mass/Vol] 3.3 g/dL 3.2-5.0 [facility] Work Phone: [phone] Serum or plasma albumin/glob ulin mass ratioon 09-13-2022 Albumin/Globulin [Mass ratio] 0.8 {ratio} 0.9-2.4 [facility] Work Phone: [phone] Serum or plasma calcium jayro urement (mass/volume)on 09-13-2022 Calcium [Mass/Vol] 9.3 mg/dL 8.5-10.1 [facility] Work Phone: [phone] Serum or plasma creatinine m easurement (mass/volume)on 09-13-2022 Creatinine [Mass/Vol] 1.08 mg/dL 0.55-1.02 [facility] Work Phone: Comment on above: The validity of the calculated GFR & GFRAA in patients over 70 years has not been determined. Clinical correlation is essential. Serum or plasma urea nitroge n measurement (mass/volume)on 09-13-2022 Urea nitrogen [Mass/Vol] 19 mg/dL 7-18 [facility] Work Phone: Thin prep Papanicolaou smear with manual screeningon 09-13-2022 Thin prep Papanicolaou smear with manual screening 53 U/L 15-37 [facility] Work Phone: Comment on above: Moderate Hemolysis, Result may be falsely increased. Thin prep Papanicolaou smear with manual screening 7 5-15 [facility] Work Phone: UA DIP, URINE (POC)on 2021 BILIRUBIN UA (POCT) Negative Negative [facility] CLARITY UA (POCT) Slightly Cloudy [facility] COLOR UA (POCT) Dark yellow [facility] GLUCOSE UA (POCT) Negative Negative mg/dL [facility] HEMOGLOBIN/BLOOD UA (POCT) Large Abnormal Negative [facility] KETONE UA (POCT) Negative Negative mg/dL [facility] LEUKOCYTES UA (POCT) Negative Negative [facility] NITRITE UA (POCT) Negative Negative [facility] PH UA (POCT) 5.5 4.5 - 8.[address] [facility] Protein Ql (U) 30 mg/dL Abnormal Negative mg/dL [facility] SPECIFIC GRAVITY UA (POCT) 1.025 1.005 - 1.[address] [facility] UROBILINOGEN UA (POCT) 0.2 E.U./dL Mellissa l E.U./dL [facility] 2019 CORONAVIRUSon 2 SARS-CoV-2 (COVID-19) RNA DEBBY+probe Ql (Resp) SARS-CoV-2 (Agent of COVID-19) Not Detected by RT-PCR or equivalent method. Not Detected [facility] XR Chest PA and Lateralon IMPRESSION: Stable chest. No acute cardiopulmonary process. Hot Box Operator: CHRISTY Transcribe Date/Time: Nov 25 2021 1:45P Dictated by : ADRIANA KUMAR MD This examination was interpreted and the report reviewed and electronically signed by: ADRIANA KUMAR MD on Nov 25 2021 1:48PM [facility] DIVISION OF RADIOLOGY * * *Final Report* * * DATE OF EXAM: Nov 25 2021 11:25AM WOX 5291 - XR CHEST 2V FRONTAL/LAT / PROCEDURE REASON: Pneumonia due to infectious organism, unspecified laterality, unspecified part o * * * * Physician Interpretation * * * * EXAMINATION: CHEST RADIOGRAPH (2 VIEW FRONTAL & LATERAL) CLINICAL HISTORY: Pneumonia due to infectious organism, unspecified laterality, unspecified part of lung MQ: XC2_6 EXAM DATE/TIME: 11/25/2021 11:25 AM COMPARISON: Comparison is made to prior chest radiograph dated 11/15/2021 RESULT: Lines, tubes, and devices: None. Lungs and pleura: Extensive bilateral chronic interstitial lung changes are grossly stable. There is no focal consolidation or acute pleural process/fluid. There is no vascular redistribution to suggest pulmonary edema. Cardiomediastinal silhouette: The cardiac, mediastinal and hilar shadows are unchanged. Other: The bony structures are intact DIVISION OF RADIOLOGY Provider, [facility] [place] - 11/25/2021 * * *Final Report* * * DATE OF EXAM: Nov 25 2021 11:25AM WOX 5291 - XR CHEST 2V FRONTAL/LAT / PROCEDURE REASON: Pneumonia due to infectious organism, unspecified laterality, unspecified part o * * * * Physician Interpretation * * * * EXAMINATION: CHEST RADIOGRAPH (2 VIEW FRONTAL & LATERAL) CLINICAL HISTORY: Pneumonia due to infectious organism, unspecified laterality, unspecified part of lung MQ: XC2_6 EXAM DATE/TIME: 11/25/2021 11:25 AM COMPARISON: Comparison is made to prior chest radiograph dated 11/15/2021 RESULT: Lines, tubes, and devices: None. Lungs and pleura: Extensive bilateral chronic interstitial lung changes are grossly stable. There is no focal consolidation or acute pleural process/fluid. There is no vascular redistribution to suggest pulmonary edema. Cardiomediastinal silhouette: The cardiac, mediastinal and hilar shadows are unchanged. Other: The bony structures are intact IMPRESSION IMPRESSION: Stable chest. No acute cardiopulmonary process. Hot Box Operator: CHRISTY Transcribe Date/Time: Nov 25 2021 1:45P Dictated by : ADRIANA KUMAR MD This examination was interpreted and the report reviewed and electronically signed by: ADRIANA KUMAR MD on Nov 25 2021 1:48PM EST [facility] Radiology Study observation (narrative) Anant schneider [facility] XR Chest PA and LateralOrder ed By: [facility] Provider on 11-25-[address] [facility] Absolute lymphocyte counton 11-17-2021 Lymphocytes Auto (Unsp spec) [#/Vol] 0.65 10*3/uL 0.83-4.51 [facility] Work Phone: Basophil percentageon 2021 Basophils/100 WBC (Bld) 0.2 % 0-1 [facility] Work Phone: Chloride [Moles/Vol] 103 mmol/L 98-107 [facility] Work Phone: Eosinophils/100 WBC (Bld) 0.2 % 0-5 [facility] Work Phone: Glucose [Mass/Vol] 98 mg/dL 74-106 [facility] Work Phone: Neutrophils (Bld) [#/Vol] 5.0 10*3/uL 2.0-7.7 [facility] Work Phone: Neutrophils/100 WBC (Bld) 75.4 % 47-70 [facility] Work Phone: Potassium [Moles/Vol] 3.5 mmol/L 3.5-5.1 [facility] Work Phone: Sodium [Moles/Vol] 135 mmol/L 136-145 [facility] Work Phone: WBC (Bld) [#/Vol] 6.7 10*3/uL 4.4-11.0 [facility] Work Phone: Blood erythrocytes count (nu mber/volume)on 11-17-2021 RBC (Bld) [#/Vol] 4.70 10*6/uL 4.2-5.4 [facility] Work Phone: Blood hemoglobin measurement (mass/volume)on 11-17-2021 Hemoglobin (Bld) [Mass/Vol] 13.5 g/dL 12.0-15.0 [facility] Work Phone: Blood lymphocytes/100 leukoc yteson 11-17-2021 Lymphocytes/100 WBC (Bld) 9.8 % 19-41 [facility] Work Phone: [phone] Blood monocytes/100 leukocyt eson 11-17-2021 Monocytes/100 WBC (Bld) 13.5 % 0-10 [facility] Work Phone: Blood platelet mean volumeon 11-17-2021 Platelet mean volume (Bld) [Entitic vol] 10.9 fL 6.2-12.0 [facility] Work Phone: [phone] Determination of erythrocyte mean corpuscular volume (MCV)on 11-17-2021 MCV (RBC) [Entitic vol] 86.2 fL 81-99 [facility] Work Phone: Hematocrit Auto (Bld) [Volum e fraction]on 11-17-2021 Hematocrit (Bld) [Volume fraction] 40.5 % 37-47 [facility] Work Phone: Laboratory - Chemistry and C hemistry - challengeon 11-17-2021 CO2 [Moles/Vol] 27.0 mmol/L 21.0-32.0 [facility] Work Phone: [phone] Urea nitrogen/Creatinine [Mass ratio] 17.5 mg/mg 10-20 [facility] Work Phone: [phone] Laboratory - Hematology and Cell countson 11-17-2021 Erythrocyte distribution width (RBC) [Entitic vol] 42.7 fL 35.1-43.9 [facility] Work Phone: [phone] Erythrocyte distribution width (RBC) [Ratio] 13.4 % 11.6-14.6 [facility] Work Phone: [phone] Immature granulocytes/100 WBC (Bld) 0.900 % 0.0-0.9 [facility] Work Phone: [phone] Comment on above: IG% - Immature Granu locytes (promyelocytes, myelocytes and metamyelocytes) > 1% indicates that a LEFT SHIFT is Present. MCH (RBC) [Entitic mass] 28.7 pg 27.0-32.0 [facility] Work Phone: [phone] Nucleated RBC/100 WBC (Bld) [Ratio] 0 % 0-5 [facility] Work Phone: MCHC Auto (RBC) [Mass/Vol]on 11-17-2021 MCHC (RBC) [Mass/Vol] 33.3 g/dL 32-36 [facility] Work Phone: No Panel Informationon 11-17 Estimated Creatinine Clearance Calc 43.84 ml/min [facility] Work Phone: Estimated GFR (MDRD) Amer 69 mL/min >60 [facility] Work Phone: Comment on above: GFR Calc Estimated GFR (MDRD) Non-Af Amer 57 mL/min >60 [facility] Work Phone: Comment on above: Non- GFR Calc Platelets bldon 11-17-2021 Platelets (Bld) [#/Vol] 228 10*3/uL 150-450 [facility] Work Phone: [phone] Serum or plasma calcium jayro urement (mass/volume)on 11-17-2021 Calcium [Mass/Vol] 9.1 mg/dL 8.5-10.1 [facility] Work Phone: [phone] Serum or plasma creatinine m easurement (mass/volume)on 11-17-2021 Creatinine [Mass/Vol] 1.03 mg/dL 0.55-1.02 [facility] Work Phone: Comment on above: The validity of the calculated GFR & GFRAA in patients over 70 years has not been determined. Clinical correlation is essential. Serum or plasma urea nitroge n measurement (mass/volume)on 11-17-2021 Urea nitrogen [Mass/Vol] 18 mg/dL 7-18 [facility] Work Phone: [phone] Thin prep Papanicolaou smear with manual screeningon 11-17-2021 Thin prep Papanicolaou smear with manual screening 5 5-15 [facility] Work Phone: XR Chest PA and Lateralon IMPRESSION: Bilateral patchy peripheral dominant airspace opacities with associated reticulation of the lung markings in a mid to lower lung zone predominance, findings which may reflect the sequela of an infectious/inflammat ory process such as viral pneumonia. Underlying developing fibrosis not excluded. Mild prominence of the trell which could be related to pulmonary artery hypertension or hilar lymphadenopathy. Hot Box Operator: CHRISTY Transcribe Date/Time: Nov 15 2021 3:09P Dictated by : RAJIV DONOVAN MD This examination was interpreted and the report reviewed and electronically signed by: RAJIV DONOVAN MD on Nov 15 2021 3:43PM [facility] DIVISION OF RADIOLOGY * * *Final Report* * * DATE OF EXAM: Nov 15 2021 3:05PM WOX 5291 - XR CHEST 2V FRONTAL/LAT / PROCEDURE REASON: multiple diagnoses * * * * Physician Interpretation * * * * EXAMINATION: CHEST RADIOGRAPH (2 VIEW FRONTAL & LATERAL) CLINICAL HISTORY: Fever and diarrhea. MQ: XC2_6 EXAM DATE/TIME: 11/15/2021 3:05 PM COMPARISON: No relevant prior studies available. RESULT: Lines, tubes, and devices: None. Lungs and pleura: There are bilateral patchy peripheral dominant airspace opacities with associated reticulation of the lung markings in a mid to lower lung zone predominance. Cardiomediastinal silhouette: Heart normal in size. Mild prominence of the trell which could be related to pulmonary artery hypertension or hilar lymphadenopathy. Bones and soft tissues: Degenerative changes in the spine. Surgical clips in the upper abdomen. A single surgical clip in the right chest wall. DIVISION OF RADIOLOGY Provider, [facility] [place] - 11/15/2021 * * *Final Report* * * DATE OF EXAM: Nov 15 2021 3:05PM WOX [id number] - XR CHEST 2V FRONTAL/LAT / PROCEDURE REASON: multiple diagnoses * * * * Physician Interpretation * * * * EXAMINATION: CHEST RADIOGRAPH (2 VIEW FRONTAL & LATERAL) CLINICAL HISTORY: Fever and diarrhea. MQ: [id number]_6 EXAM DATE/TIME: 11/15/2021 3:05 PM COMPARISON: No relevant prior studies available. RESULT: Lines, tubes, and devices: None. Lungs and pleura: There are bilateral patchy peripheral dominant airspace opacities with associated reticulation of the lung markings in a mid to lower lung zone predominance. Cardiomediastinal silhouette: Heart normal in size. Mild prominence of the trell which could be related to pulmonary artery hypertension or hilar lymphadenopathy. Bones and soft tissues: Degenerative changes in the spine. Surgical clips in the upper abdomen. A single surgical clip in the right chest wall. IMPRESSION IMPRESSION: Bilateral patchy peripheral dominant airspace opacities with associated reticulation of the lung markings in a mid to lower lung zone predominance, findings which may reflect the sequela of an infectious/inflammat ory process such as viral pneumonia. Underlying developing fibrosis not excluded. Mild prominence of the trell which could be related to pulmonary artery hypertension or hilar lymphadenopathy. Hot Box Operator: CHRISTY Transcribe Date/Time: Nov 15 2021 3:09P Dictated by : RAJIV DONOVAN MD This examination was interpreted and the report reviewed and electronically signed by: RAJIV DONOVAN MD on Nov 15 2021 3:43PM EST [facility] Radiology Study observation (narrative) [facility] XR Chest PA and LateralOrder ed By: [facility] Provider on 11-15-[address] [facility] Absolute lymphocyte counton 11-12-2021 Lymphocytes Auto (Unsp spec) [#/Vol] 0.57 10*3/uL 0.83-4.51 [facility] Work Phone: Basophil percentageon 2021 Basophils/100 WBC (Bld) 0.6 % 0-1 [facility] Work Phone: Chloride [Moles/Vol] 108 mmol/L 98-107 [facility] Work Phone: Eosinophils/100 WBC (Bld) 0.5 % 0-5 [facility] Work Phone: Glucose [Mass/Vol] 135 mg/dL 74-106 [facility] Work Phone: Comment on above: Fasting Glucose resu lt greater than or equal to 126 mg/dL suggests DIABETES MELLITUS per A.D.A. criteria. Neutrophils (Bld) [#/Vol] 4.8 10*3/uL 2.0-7.7 [facility] Work Phone: Neutrophils/100 WBC (Bld) 74.4 % 47-70 [facility] Work Phone: Potassium [Moles/Vol] 3.7 mmol/L 3.5-5.1 [facility] Work Phone: [phone] Sodium [Moles/Vol] 140 mmol/L 136-145 [facility] Work Phone: WBC (Bld) [#/Vol] 6.5 10*3/uL 4.4-11.0 [facility] Work Phone: [phone] Blood erythrocytes count (nu mber/volume)on 11-12-2021 RBC (Bld) [#/Vol] 4.93 10*6/uL 4.2-5.4 [facility] Work Phone: Blood hemoglobin measurement (mass/volume)on 11-12-2021 Hemoglobin (Bld) [Mass/Vol] 14.6 g/dL 12.0-15.0 [facility] Work Phone: Blood lymphocytes/100 leukoc yteson 11-12-2021 Lymphocytes/100 WBC (Bld) 8.8 % 19-41 [facility] Work Phone: Blood manual differential co mment interpretation (narrative result)on 11-12-2021 Manual differential comment Scott (Bld) [Interp] See comment [facility] Work Phone: Comment on above: LYMPHOPENIA NOTED Blood monocytes/100 leukocyt eson 11-12-2021 Monocytes/100 WBC (Bld) 15.4 % 0-10 [facility] Work Phone: Blood platelet adequacy dete ction by light microscopyon 11-12-2021 Platelets LM Ql (Bld) ADEQUATE ADEQ [facility] Work Phone: Blood platelet mean volumeon 11-12-2021 Platelet mean volume (Bld) [Entitic vol] 10.2 fL 6.2-12.0 [facility] Work Phone: [phone] Determination of erythrocyte mean corpuscular volume (MCV)on 11-12-2021 MCV (RBC) [Entitic vol] 86.0 fL 81-99 [facility] Work Phone: [phone] Hematocrit Auto (Bld) [Volum e fraction]on 11-12-2021 Hematocrit (Bld) [Volume fraction] 42.4 % 37-47 [facility] Work Phone: [phone] Laboratory - Chemistry and C hemistry - challengeon 11-12-2021 CO2 [Moles/Vol] 24.0 mmol/L 21.0-32.0 [facility] Work Phone: [phone] Urea nitrogen/Creatinine [Mass ratio] 13.3 mg/mg 10-20 [facility] Work Phone: [phone] Laboratory - Hematology and Cell countson 11-12-2021 Erythrocyte distribution width (RBC) [Entitic vol] 42.1 fL 35.1-43.9 [facility] Work Phone: [phone] Erythrocyte distribution width (RBC) [Ratio] 13.4 % 11.6-14.6 [facility] Work Phone: [phone] Immature granulocytes/100 WBC (Bld) 0.300 % 0.0-0.9 [facility] Work Phone: [phone] Comment on above: IG% - Immature Granu locytes (promyelocytes, myelocytes and metamyelocytes) > 1% indicates that a LEFT SHIFT is Present. MCH (RBC) [Entitic mass] 29.6 pg 27.0-32.0 [facility] Work Phone: [phone] Nucleated RBC/100 WBC (Bld) [Ratio] 0 % 0-5 [facility] Work Phone: [phone] MCHC Auto (RBC) [Mass/Vol]on 11-12-2021 MCHC (RBC) [Mass/Vol] 34.4 g/dL 32-36 [facility] Work Phone: [phone] No Panel Informationon 11-12 Estimated Creatinine Clearance Calc 43.01 ml/min [facility] Work Phone: Estimated GFR (MDRD) Amer 67 mL/min >60 [facility] Work Phone: Comment on above: GFR Calc Estimated GFR (MDRD) Non-Af Amer 56 mL/min >60 [facility] Work Phone: Comment on above: Non- GFR Calc SARS-CoV-2 Antigen (Rapid) [facility] Work Phone: Platelets bldon 11-12-2021 Platelets (Bld) [#/Vol] 264 10*3/uL 150-450 [facility] Work Phone: RBC morphologyon 11-12-2021 RBC morphology finding Nom (Bld) NORM C+C NORMAL NORM C&C [facility] Work Phone: Serum or plasma calcium jayro urement (mass/volume)on 11-12-2021 Calcium [Mass/Vol] 9.5 mg/dL 8.5-10.1 [facility] Work Phone: Serum or plasma creatinine m easurement (mass/volume)on 11-12-2021 Creatinine [Mass/Vol] 1.05 mg/dL 0.55-1.02 [facility] Work Phone: Comment on above: The validity of the calculated GFR & GFRAA in patients over 70 years has not been determined. Clinical correlation is essential. Serum or plasma urea nitroge n measurement (mass/volume)on 11-12-2021 Urea nitrogen [Mass/Vol] 14 mg/dL 7-18 [facility] Work Phone: Thin prep Papanicolaou smear with manual screeningon 11-12-2021 Thin prep Papanicolaou smear with manual screening 8 5-15 [facility] Work Phone: Vital Signs Date Time Vital Sign Value Performing Clinician Facility 02-16-2025 09:00-0400 Body temperature 98.2 [degF] Dr. Fabricio Lemos MD Work Phone: 7(597)345-889111 [address] 02-16-2025 09:00-0400 Diastolic blood pressure 58 mm[Hg] Dr. Fabricio Lemos MD Work Phone: 2(647)682-761423 [place] [address] 02-16-2025 09:00-0400 Heart rate 70 /min Dr. Fabricio Lemos MD Work Phone: 9(008)122-944123 [place] [address] 02-16-2025 09:00-0400 Respiratory rate 16 /min Dr. Fabricio Lemos MD Work Phone: 0(136)396-178523 [place] [address] 02-16-2025 09:00-0400 SaO2% (BldA) [Mass fraction] 94 % Dr. Fabricio Lemos MD Work Phone: 0(147)475-807623 [place] [address] 02-16-2025 09:00-0400 Systolic blood pressure 105 mm[Hg] Dr. Fabricio Lemos MD Work Phone: 2(796)761-399223 [place] [address] 02-16-2025 07:38-0400 Body height 160.[address] Fabricio Lemos MD Work Phone: 9(931)018-169323 [place] [address] 02-16-2025 07:38-0400 Body mass index (BMI) [Ratio] 25.7 kg/m2 Dr. Fabricio Lemos MD Work Phone: 6(522)369-218123 [place] [address] 02-16-2025 07:38-0400 Body weight [address] Fabricio Lemos MD Work Phone: 1(009)842-858623 [place] [address] 02-06-2025 12:18-0400 Body temperature 97.2 [degF] Dr. Fabricio Lemos MD Work Phone: 6(937)193-003323 [place] [address] 02-06-2025 12:18-0400 Diastolic blood pressure 82 mm[Hg] Dr. Fabricio Lemos MD Work Phone: 6(343)448-165823 [place] [address] 02-06-2025 12:18-0400 Heart rate 57 /min Dr. Fabricio Lemos MD Work Phone: 4(186)651-385523 [place] [address] 02-06-2025 12:18-0400 Respiratory rate 16 /min Dr. Fabricio Lemos MD Work Phone: 2(406)982-906423 [place] [address] 02-06-2025 12:18-0400 SaO2% (BldA) [Mass fraction] 97 % Dr. Fabricio Lemos MD Work Phone: 2(892)851-364823 [place] [address] 02-06-2025 12:18-0400 Systolic blood pressure 156 mm[Hg] Dr. Fabricio Lemos MD Work Phone: 1(411)256-426323 [place] [address] 02-05-2025 12:48-0400 Body mass index (BMI) [Ratio] 26.1 kg/m2 Dr. Fabricio Lemos MD Work Phone: 5(620)154-906323 [place] [address] 02-05-2025 12:48-0400 Body weight 66.[address] Fabricio Lemos MD Work Phone: 0(845)828-511523 [place] [address] 02-03-2025 09:31-0400 Body height 160.[address] Fabricio Lemos MD Work Phone: 6(074)237-015523 [place] [address] 02-03-2025 09:31-0400 Body weight 64.[address] Fabricio Lemos MD Work Phone: 6(717)740-158023 [place] [address] 02-03-2025 09:01-0400 Body mass index (BMI) [Ratio] 25 kg/m2 Dr. Fabricio Lemos MD Work Phone: 5(914)688-035123 [place] [address] 02-03-2025 09:01-0400 Body temperature 97.4 [degF] Dr. Fabricio Lemos MD Work Phone: 5(236)512-646123 [place] [address] 02-03-2025 09:01-0400 Body weight 64.[address] Fabricio Lemos MD Work Phone: 4(450)571-925623 [place] [address] 02-03-2025 09:01-0400 Diastolic blood pressure 81 mm[Hg] Dr. Fabricio Lemos MD Work Phone: 4(398)496-043623 [place] [address] 02-03-2025 09:01-0400 Heart rate 76 /min Dr. Fabricio Lemos MD Work Phone: 8(130)478-109723 [place] [address] 02-03-2025 09:01-0400 Respiratory rate 16 /min Dr. Fabricio Lemos MD Work Phone: [facility] 02-03-2025 09:01-0400 SaO2% (BldA) [Mass fraction] 92 % Dr. Fabricio Lemos MD Work Phone: [facility] 02-03-2025 09:01-0400 Systolic blood pressure 134 mm[Hg] Dr. Fabricio Lemos MD Work Phone: [facility] 01-26-2025 13:02-0400 Body mass index (BMI) [Ratio] 24.71 kg/m2 Girish Lemos MD Work Phone: [facility] 01-26-2025 13:02-0400 Body temperature 99.3 [degF] Girish Lemos MD Work Phone: [facility] 01-26-2025 13:02-0400 Body weight 64.05 kg Girish Lemos MD Work Phone: [facility] 01-26-2025 13:02-0400 Diastolic blood pressure 66 mm[Hg] Girish Lemos MD Work Phone: [facility] 01-26-2025 13:02-0400 Heart rate 80 /min Girish Lemos MD Work Phone: [facility] 01-26-2025 13:02-0400 Respiratory rate 16 /min Girish Lemos MD Work Phone: [facility] 01-26-2025 13:02-0400 SaO2% (BldA) [Mass fraction] 95 % Girish Lemos MD Work Phone: [facility] 01-26-2025 13:02-0400 Systolic blood pressure 116 mm[Hg] Girish Lemos MD Work Phone: [facility] 01-13-2025 09:27-0400 Body mass index (BMI) [Ratio] 23.97 kg/m2 Girish Lemos MD Work Phone: [facility] 01-13-2025 09:27-0400 Body weight 62.14 kg Girish Lemos MD Work Phone: [facility] 01-13-2025 09:27-0400 Diastolic blood pressure 60 mm[Hg] Girish Lemos MD Work Phone: [facility] 01-13-2025 09:27-0400 Heart rate 72 /min Girish Lemos MD Work Phone: [facility] 01-13-2025 09:27-0400 Respiratory rate 16 /min Girish Lemos MD Work Phone: [facility] 01-13-2025 09:27-0400 SaO2% (BldA) [Mass fraction] 98 % Girish Lemos MD Work Phone: [facility] 01-13-2025 09:27-0400 Systolic blood pressure 104 mm[Hg] Girish Lemos MD Work Phone: [facility] 01-10-2025 14:35-0400 Body temperature 98.4 [degF] Dr. Fabricio Lemos MD Work Phone: [facility] 01-10-2025 14:35-0400 Diastolic blood pressure 65 mm[Hg] Dr. Fabricio Lemos MD Work Phone: [facility] 01-10-2025 14:35-0400 Heart rate 72 /min Dr. Fabricio Lemos MD Work Phone: [facility] 01-10-2025 14:35-0400 Respiratory rate 14 /min Dr. Fabricio Lemos MD Work Phone: [facility] 01-10-2025 14:35-0400 SaO2% (BldA) [Mass fraction] 94 % Dr. Fabricio Lemos MD Work Phone: [facility] 01-10-2025 14:35-0400 Systolic blood pressure 118 mm[Hg] Dr. Fabricio Lemos MD Work Phone: [facility] 01-10-2025 13:49-0400 Body height 160.[address] Fabricio Lemos MD Work Phone: 9(435)538-594423 [place] [address] 01-10-2025 13:49-0400 Body weight 65.[address] Fabricio Lemos MD Work Phone: 0(803)781-716723 [place] [address] 01-10-2025 08:31-0400 Inhaled oxygen flow rate 2 L/min Dr. Fabricio Lemos MD Work Phone: 3(956)627-426423 [place] [address] 01-10-2025 03:07-0400 Body mass index (BMI) [Ratio] 25.7 kg/m2 Dr. Fabricio Lemos MD Work Phone: 0(520)626-984223 [place] [address] 01-08-2025 14:51-0400 Diastolic blood pressure 74 mm[Hg] Dr. Fabricio Lemos MD Work Phone: 7(902)629-377623 [place] [address] 01-08-2025 14:51-0400 Heart rate 57 /min Dr. Fabricio Lemos MD Work Phone: 7(830)781-237223 [place] [address] 01-08-2025 14:51-0400 Respiratory rate 16 /min Dr. Fabricio Lemos MD Work Phone: 8(105)076-220823 [place] [address] 01-08-2025 14:51-0400 Systolic blood pressure 156 mm[Hg] Dr. Fabricio Lemos MD Work Phone: 9(205)049-533223 [place] [address] 01-08-2025 12:54-0400 Body temperature 97.1 [degF] Dr. Fabricio Lemos MD Work Phone: 4(915)779-699723 [place] [address] 01-08-2025 12:54-0400 SaO2% (BldA) [Mass fraction] 97 % Dr. Fabricio Lemos MD Work Phone: 9(001)970-200023 [place] [address] 01-06-2025 08:55-0400 Body mass index (BMI) [Ratio] 24.4 kg/m2 Dr. Fabricio Lemos MD Work Phone: 4(377)727-000723 [place] [address] 01-06-2025 08:55-0400 Body temperature 97 [degF] Dr. Fabricio Lemos MD Work Phone: 4(473)893-917723 [place] [address] 01-06-2025 08:55-0400 Body weight 62.[address] Fabricio Lemos MD Work Phone: 1(449)937-136223 [place] [address] 01-06-2025 08:55-0400 Diastolic blood pressure 80 mm[Hg] Dr. Fabricio Lemos MD Work Phone: 8(405)790-022223 [place] [address] 01-06-2025 08:55-0400 Heart rate 71 /min Dr. Fabricio Lemos MD Work Phone: 7(472)853-886023 [place] [address] 01-06-2025 08:55-0400 Respiratory rate 16 /min Dr. Fabricio Lemos MD Work Phone: 8(080)314-883223 [place] [address] 01-06-2025 08:55-0400 SaO2% (BldA) [Mass fraction] 95 % Dr. Fabricio Lemos MD Work Phone: 7(349)601-626823 [place] [address] 01-06-2025 08:55-0400 Systolic blood pressure 127 mm[Hg] Dr. Fabricio Lemos MD Work Phone: 2(665)060-306523 [place] [address] 12-29-2024 13:46-0400 Body mass index (BMI) [Ratio] 24.4 kg/m2 Dr. Fabricio Lemos MD Work Phone: 7(279)747-190123 [place] [address] 12-29-2024 13:46-0400 Body temperature 98.2 [degF] Dr. Fabricio Lemos MD Work Phone: 6(436)467-661223 [place] [address] 12-29-2024 13:46-0400 Body weight 62.[address] Fabricio Lemos MD Work Phone: 4(979)014-651823 [place] [address] 12-29-2024 13:46-0400 Diastolic blood pressure 74 mm[Hg] Dr. Fabricio Lemos MD Work Phone: 9(230)843-132723 [place] [address] 12-29-2024 13:46-0400 Heart rate 69 /min Dr. Fabricio Lemos MD Work Phone: 1(046)966-462923 [place] [address] 12-29-2024 13:46-0400 Respiratory rate 16 /min Dr. Fabricio Lemos MD Work Phone: 7(821)106-003323 [place] [address] 12-29-2024 13:46-0400 SaO2% (BldA) [Mass fraction] 93 % Dr. Fabricio Lemos MD Work Phone: 9(026)589-361023 [place] [address] 12-29-2024 13:46-0400 Systolic blood pressure 121 mm[Hg] Dr. Fabricio Lemos MD Work Phone: 7(119)632-915423 [place] [address] 12-16-2024 08:51-0400 Body mass index (BMI) [Ratio] 25.7 kg/m2 Dr. Fabricio Lemos MD Work Phone: 5(205)073-893423 [place] [address] 12-16-2024 08:51-0400 Body temperature 98.4 [degF] Dr. Fabricio Lemos MD Work Phone: 7(838)853-184423 [place] [address] 12-16-2024 08:51-0400 Body weight 65.[address] Fabricio Lemos MD Work Phone: 6(138)883-895323 [place] [address] 12-16-2024 08:51-0400 Diastolic blood pressure 79 mm[Hg] Dr. Fabricio Lemos MD Work Phone: 2(170)323-911223 [place] [address] 12-16-2024 08:51-0400 Heart rate 71 /min Dr. Fabricio Lemos MD Work Phone: 3(739)465-384123 [place] [address] 12-16-2024 08:51-0400 Respiratory rate 14 /min Dr. Fabricio Lemos MD Work Phone: 1(592)038-906523 [place] [address] 12-16-2024 08:51-0400 SaO2% (BldA) [Mass fraction] 93 % Dr. Fabricio Lemos MD Work Phone: 2(014)174-090923 [place] [address] 12-16-2024 08:51-0400 Systolic blood pressure 144 mm[Hg] Dr. Fabricio Lemos MD Work Phone: 8(515)445-662823 [place] [address] 12-12-2024 12:35-0400 Body temperature 98.2 [degF] Dr. Fabricio Lemos MD Work Phone: 1(071)703-222023 [place] [address] 12-12-2024 12:35-0400 Diastolic blood pressure 67 mm[Hg] Dr. Fabricio Lemos MD Work Phone: 7(647)443-579823 [place] [address] 12-12-2024 12:35-0400 Heart rate 80 /min Dr. Fabricio Lemos MD Work Phone: 4(244)226-515823 [place] [address] 12-12-2024 12:35-0400 Inhaled oxygen flow rate 2 L/min Dr. Fabricio Lemos MD Work Phone: 0(191)723-917823 [place] [address] 12-12-2024 12:35-0400 Respiratory rate 18 /min Dr. Fabricio Lemos MD Work Phone: 2(408)651-560623 [place] [address] 12-12-2024 12:35-0400 SaO2% (BldA) [Mass fraction] 95 % Dr. Fabricio Lemos MD Work Phone: 2(603)758-289723 [place] [address] 12-12-2024 12:35-0400 Systolic blood pressure 121 mm[Hg] Dr. Fabricio Lemos MD Work Phone: 6(946)654-037823 [place] [address] 12-12-2024 10:51-0400 Body height 160.[address] Fabricio Lemos MD Work Phone: 6(290)333-327323 [place] [address] 12-12-2024 10:51-0400 Body mass index (BMI) [Ratio] 26.2 kg/m2 Dr. Fabricio Lemos MD Work Phone: 7(997)360-149223 [place] [address] 12-12-2024 10:51-0400 Body weight [address] Fabricio Lemos MD Work Phone: 0(859)224-210223 [place] [address] 12-10-2024 12:46-0400 Body height 160.[address] Fabricio Lemos MD Work Phone: 9(178)284-319323 [place] [address] 12-10-2024 12:46-0400 Body mass index (BMI) [Ratio] 26.7 kg/m2 Dr. Fabricio Lemos MD Work Phone: 0(073)888-550523 [place] [address] 12-10-2024 12:46-0400 Body weight 68.[address] Fabricio Lemos MD Work Phone: 0(115)349-892723 [place] [address] 12-10-2024 12:46-0400 Diastolic blood pressure 71 mm[Hg] Dr. Fabricio Lemos MD Work Phone: 8(331)876-278423 [place] [address] 12-10-2024 12:46-0400 Heart rate 81 /min Dr. Fabricio Lemos MD Work Phone: 2(239)796-327723 [place] [address] 12-10-2024 12:46-0400 Respiratory rate 17 /min Dr. Fabricio Lemos MD Work Phone: 2(470)751-787323 [place] [address] 12-10-2024 12:46-0400 SaO2% (BldA) [Mass fraction] 93 % Dr. Fabriico Lemos MD Work Phone: 2(683)281-178023 [place] [address] 12-10-2024 12:46-0400 Systolic blood pressure 135 mm[Hg] Dr. Fabricio Lemos MD Work Phone: 8(764)438-280523 [place] [address] 12-09-2024 10:45-0400 Body mass index (BMI) [Ratio] 26.7 kg/m2 Dr. Fabricio Lemos MD Work Phone: 2(194)730-587223 [place] [address] 12-09-2024 10:45-0400 Body temperature 97.8 [degF] Dr. Fabricio Lemos MD Work Phone: 1(443)874-322023 [place] [address] 12-09-2024 10:45-0400 Body weight 68.[address] Fabricio Lemos MD Work Phone: 8(657)967-460623 [place] [address] 12-09-2024 10:45-0400 Diastolic blood pressure 73 mm[Hg] Dr. Fabricio Lemos MD Work Phone: 5(135)899-156523 [place] [address] 12-09-2024 10:45-0400 Heart rate 77 /min Dr. Fabricio Lemos MD Work Phone: 8(365)760-720423 [place] [address] 12-09-2024 10:45-0400 Respiratory rate 16 /min Dr. Fabricio Lemos MD Work Phone: 9(435)072-701523 [place] [address] 12-09-2024 10:45-0400 SaO2% (BldA) [Mass fraction] 93 % Dr. Fabricio Lemos MD Work Phone: 1(444)883-962823 [place] [address] 12-09-2024 10:45-0400 Systolic blood pressure 125 mm[Hg] Dr. Fabricio Lemos MD Work Phone: 3(561)299-729323 [place] [address] 12-02-2024 13:20-0400 Body mass index (BMI) [Ratio] 28 kg/m2 Dr. Fabricio Lemos MD Work Phone: 3(478)705-230323 [place] [address] 12-02-2024 13:20-0400 Body temperature 97.8 [degF] Dr. Fabricio Lemos MD Work Phone: 1(722)521-980723 [place] [address] 12-02-2024 13:20-0400 Body weight 71.[address] Fabricio Lemos MD Work Phone: 1(611)766-425323 [place] [address] 12-02-2024 13:20-0400 Diastolic blood pressure 77 mm[Hg] Dr. Fabricio Lemos MD Work Phone: 7(936)387-543123 [place] [address] 12-02-2024 13:20-0400 Heart rate 78 /min Dr. Fabricio Lemos MD Work Phone: 1(505)066-189623 [place] [address] 12-02-2024 13:20-0400 Respiratory rate 16 /min Dr. Fabricio Lemos MD Work Phone: 2(027)735-066223 [place] [address] 12-02-2024 13:20-0400 SaO2% (BldA) [Mass fraction] 94 % Dr. Fabricio Lemos MD Work Phone: 9(339)419-710223 [place] [address] 12-02-2024 13:20-0400 Systolic blood pressure 128 mm[Hg] Dr. Fabricio Lemos MD Work Phone: 4(869)000-708023 [place] [address] 11-28-2024 08:45-0400 Body temperature 96.2 [degF] Dr. Fabricio Lemos MD Work Phone: 5(246)865-303323 [place] [address] 11-28-2024 08:45-0400 Diastolic blood pressure 69 mm[Hg] Dr. Fabricio Lemos MD Work Phone: 8(858)161-918323 [place] [address] 11-28-2024 08:45-0400 Heart rate 82 /min Dr. Fabricio Lemos MD Work Phone: 4(907)690-678023 [place] [address] 11-28-2024 08:45-0400 Respiratory rate 16 /min Dr. Fabricio Lemos MD Work Phone: 5(559)515-576223 [place] [address] 11-28-2024 08:45-0400 SaO2% (BldA) [Mass fraction] 94 % Dr. Fabricio Lemos MD Work Phone: 0(007)725-119323 [place] [address] 11-28-2024 08:45-0400 Systolic blood pressure 120 mm[Hg] Dr. Fabricio Lemos MD Work Phone: 0(378)693-481423 [place] [address] 11-26-2024 08:22-0400 Inhaled oxygen flow rate 2 L/min Dr. Fabricio Lemos MD Work Phone: 3(786)584-056923 [place] [address] 11-26-2024 08:21-0400 Body mass index (BMI) [Ratio] 28.5 kg/m2 Dr. Fabricio Lemos MD Work Phone: 1(959)860-058523 [place] [address] 11-24-2024 16:29-0400 Body weight 70.[address] Fabricio Lemos MD Work Phone: 6(844)467-368123 [place] [address] 11-24-2024 15:32-0400 Body mass index (BMI) [Ratio] 27.5 kg/m2 Dr. Fabricio Lemos MD Work Phone: [phone] [place] [address] 11-24-2024 15:32-0400 Body temperature 97.5 [degF] Dr. Fabricio Lemos MD Work Phone: [phone] [place] [address] 11-24-2024 15:32-0400 Diastolic blood pressure 74 mm[Hg] Dr. Fabricio Lemos MD Work Phone: 2(183)[phone] [place] [address] 11-24-2024 15:32-0400 Heart rate 86 /min Dr. Fabricio Lemos MD Work Phone: 7(743)552-972823 [place] [address] 11-24-2024 15:32-0400 Respiratory rate 16 /min Dr. Fabricio Lemos MD Work Phone: 0(720)938-089123 [place] [address] 11-24-2024 15:32-0400 SaO2% (BldA) [Mass fraction] 90 % Dr. Fabricio Lemos MD Work Phone: 9(825)949-645923 [place] [address] 11-24-2024 15:32-0400 Systolic blood pressure 126 mm[Hg] Dr. Fabricio Lemos MD Work Phone: 7(832)620-085323 [place] [address] 11-23-2024 17:39-0400 Diastolic blood pressure 73 mm[Hg] Dr. Fabricio Lemos MD Work Phone: 2(661)531-176123 [place] [address] 11-23-2024 17:39-0400 Heart rate 70 /min Dr. Fabricio Lemos MD Work Phone: 0(859)598-536523 [place] [address] 11-23-2024 17:39-0400 Respiratory rate 18 /min Dr. Fabricio Lemos MD Work Phone: 8(082)012-558223 [place] [address] 11-23-2024 17:39-0400 SaO2% (BldA) [Mass fraction] 98 % Dr. Fabricio Lemos MD Work Phone: 2(043)160-135223 [place] [address] 11-23-2024 17:39-0400 Systolic blood pressure 123 mm[Hg] Dr. Fabricio Lemos MD Work Phone: 7(032)795-989323 [place] [address] 11-23-2024 16:25-0400 Body mass index (BMI) [Ratio] 27.6 kg/m2 Dr. Fabricio Lemos MD Work Phone: 5(265)820-188423 [place] [address] 11-23-2024 16:25-0400 Body weight 70.[address] Fabricio Lemos MD Work Phone: 3(851)584-633323 [place] [address] 11-23-2024 15:39-0400 Body height 160.[address] Fabricio Lemos MD Work Phone: 3(917)578-303423 [place] [address] 11-23-2024 15:39-0400 Body temperature 97.5 [degF] Dr. Fabricio Lemos MD Work Phone: 1(459)966-963723 [place] [address] 11-15-2024 12:29-0500 Body temperature 98.8 [degF] Dr. Fabricio Lemos MD Work Phone: 8(487)144-376523 [place] [address] 11-15-2024 12:29-0500 Diastolic blood pressure 78 mm[Hg] Dr. Fabricio Lemos MD Work Phone: 3(293)091-315923 [place] [address] 11-15-2024 12:29-0500 Heart rate 70 /min Dr. Fabricio Lemos MD Work Phone: 3(419)612-845423 [place] [address] 11-15-2024 12:29-0500 Respiratory rate 18 /min Dr. Fabricio Lemos MD Work Phone: 0(634)019-004523 [place] [address] 11-15-2024 12:29-0500 SaO2% (BldA) [Mass fraction] 98 % Dr. Fabricio Lemos MD Work Phone: 1(418)666-278123 [place] [address] 11-15-2024 12:29-0500 Systolic blood pressure 144 mm[Hg] Dr. Fabricio Lemos MD Work Phone: 0(124)864-516723 [place] [address] 11-15-2024 05:07-0500 Body mass index (BMI) [Ratio] 30.2 kg/m2 Dr. Fabricio Lemos MD Work Phone: 8(982)922-536023 [place] [address] 11-15-2024 05:07-0500 Body weight 77.[address] Fabricio Lemos MD Work Phone: 0(564)539-793723 [place] [address] 11-14-2024 14:28-0500 Inhaled oxygen flow rate 2 L/min Dr. Fabricio Lemos MD Work Phone: 2(197)318-997723 [place] [address] 11-12-2024 08:28-0500 Body mass index (BMI) [Ratio] 27.02 kg/m2 Girish Lemos MD Work Phone: 7(056)396-900684 [place] [address] 11-12-2024 08:28-0500 Body temperature 98.29 [degF] Girish Lemos MD Work Phone: [facility] 11-12-2024 08:28-0500 Body weight 70.03 kg Girish Lemos MD Work Phone: [facility] 11-12-2024 08:28-0500 Diastolic blood pressure 64 mm[Hg] Girish Lemos MD Work Phone: [facility] 11-12-2024 08:28-0500 Heart rate 83 /min Girish Lemos MD Work Phone: [facility] 11-12-2024 08:28-0500 Respiratory rate 16 /min Girish Lemos MD Work Phone: [facility] 11-12-2024 08:28-0500 SaO2% (BldA) [Mass fraction] 93 % Girish Lemos MD Work Phone: [facility] 11-12-2024 08:28-0500 Systolic blood pressure 104 mm[Hg] Girish Lemos MD Work Phone: [facility] 11-05-2024 08:48-0500 Body height 161 cm Silas Robbins MD Work Phone: [facility] 11-05-2024 08:48-0500 Body mass index (BMI) [Ratio] 27.74 kg/m2 Silas Robbins MD Work Phone: [facility] 11-05-2024 08:48-0500 Body temperature 98.1 [degF] Silas Robbins MD Work Phone: [facility] 11-05-2024 08:48-0500 Body weight 71.89 kg Silas Robbins MD Work Phone: [facility] 11-05-2024 08:48-0500 Diastolic blood pressure 78 mm[Hg] Silas Robbins MD Work Phone: [facility] 11-05-2024 08:48-0500 Heart rate 69 /min Silas Robbins MD Work Phone: [facility] 11-05-2024 08:48-0500 SaO2% (BldA) [Mass fraction] 95 % Silas Robbins MD Work Phone: [facility] 11-05-2024 08:48-0500 Systolic blood pressure 138 mm[Hg] Silas Robbins MD Work Phone: [facility] 11-03-2024 07:46-0500 Body mass index (BMI) [Ratio] 27.4 kg/m2 Dr. Fabricio Lemos MD Work Phone: 1(877)129-048986 [place] [address] 11-03-2024 07:46-0500 Body temperature 97.3 [degF] Dr. Fabricio Lemos MD Work Phone: 9(703)162-302523 [place] [address] 11-03-2024 07:46-0500 Body weight 72.[address] Fabricio Lemos MD Work Phone: 7(965)495-846623 [place] [address] 11-03-2024 07:46-0500 Diastolic blood pressure 72 mm[Hg] Dr. Fabricio Lemos MD Work Phone: 5(943)494-383186 [place] [address] 11-03-2024 07:46-0500 Heart rate 69 /min Dr. Fabricio Lemos MD Work Phone: 1(986)606-914623 [place] [address] 11-03-2024 07:46-0500 Respiratory rate 18 /min Dr. Fabricio Lemos MD Work Phone: 6(401)719-272823 [place] [address] 11-03-2024 07:46-0500 SaO2% (BldA) [Mass fraction] 94 % Dr. Fabricio Lemos MD Work Phone: 5(630)284-874586 [place] [address] 11-03-2024 07:46-0500 Systolic blood pressure 118 mm[Hg] Dr. Fabricio Lemos MD Work Phone: 1(864)095-241023 [place] [address] 10-17-2024 12:52-0500 Body height 160 cm Girish Lemos MD Work Phone: [facility] 10-17-2024 12:52-0500 Body mass index (BMI) [Ratio] 28.7 kg/m2 Girish Lemos MD Work Phone: [facility] 10-17-2024 12:52-0500 Body temperature 97.81 [degF] Girish Lemos MD Work Phone: [facility] 10-17-2024 12:52-0500 Body weight 73.48 kg Girish Lemos MD Work Phone: [facility] 10-17-2024 12:52-0500 Diastolic blood pressure 70 mm[Hg] Girish Lemos MD Work Phone: [facility] 10-17-2024 12:52-0500 Heart rate 67 /min Girish Lemos MD Work Phone: [facility] 10-17-2024 12:52-0500 Respiratory rate 12 /min Girish Lemos MD Work Phone: [facility] 10-17-2024 12:52-0500 SaO2% (BldA) [Mass fraction] 94 % Girish Lemos MD Work Phone: [facility] 10-17-2024 12:52-0500 Systolic blood pressure 118 mm[Hg] Girish Lemos MD Work Phone: [facility] 10-16-2024 08:22-0500 Body mass index (BMI) [Ratio] 28.87 kg/m2 Oleg Fields APRN.RADIATION ENGINEER Work Phone: [facility] 10-16-2024 08:22-0500 Body weight 73.94 kg Oleg Fields APRN.RADIATION ENGINEER Work Phone: [facility] 10-16-2024 08:22-0500 Diastolic blood pressure 80 mm[Hg] Oleg Fields APRN.RADIATION ENGINEER Work Phone: [facility] 10-16-2024 08:22-0500 Heart rate 74 /min Oleg Fields APRN.RADIATION ENGINEER Work Phone: [facility] 10-16-2024 08:22-0500 Respiratory rate 14 /min Oleg Fields APRN.RADIATION ENGINEER Work Phone: [facility] 10-16-2024 08:22-0500 Systolic blood pressure 144 mm[Hg] Oleg Fields 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 Work Phone: [facility] 09-19-2024 09:38-0500 Body mass index (BMI) [Ratio] 29.26 kg/m2 Girish Lemos MD Work Phone: [facility] 09-19-2024 09:38-0500 Body weight 74.93 kg Girish Lemos MD Work Phone: [facility] 09-19-2024 09:38-0500 Diastolic blood pressure 68 mm[Hg] Girish Lemos MD Work Phone: [facility] 09-19-2024 09:38-0500 Heart rate 73 /min Girish Lemos MD Work Phone: [facility] 09-19-2024 09:38-0500 Respiratory rate 18 /min Girish Lemos MD Work Phone: [facility] 09-19-2024 09:38-0500 SaO2% (BldA) [Mass fraction] 98 % Girish Lemos MD Work Phone: [facility] 09-19-2024 09:38-0500 Systolic blood pressure 124 mm[Hg] Girish Lemos MD Work Phone: [facility] 08-19-2024 10:40-0500 Diastolic blood pressure 82 mm[Hg] Jeanette Schaefferlogshai 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 Work Phone: [facility] Comment on above: ROSAL[facility] BP 08-19-2024 10:40-0500 Systolic blood pressure 164 mm[Hg] Jeanette Podlogar 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 Work Phone: [facility] Comment on above: [facility] BP 08-19-2024 10:16-0500 Body mass index (BMI) [Ratio] 30.15 kg/m2 Jeanette Schaefferlogshai 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 Work Phone: [facility] 08-19-2024 10:16-0500 Body weight 77.2 kg Jeanette Schaefferlogshai 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 Work Phone: [facility] 08-19-2024 10:16-0500 Heart rate 58 /min Jeanette Podlogar 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 Work Phone: [facility] 08-19-2024 10:16-0500 Respiratory rate 18 /min Jeanette Podlogar 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 Work Phone: [facility] 08-19-2024 10:16-0500 SaO2% (BldA) [Mass fraction] 98 % Jeanette Podlogar 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 Work Phone: [facility] 07-15-2024 10:22-0400 Diastolic blood pressure 80 mm[Hg] Jeanette Podlogar 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 Work Phone: [facility] Comment on above: ROSALVA BP 07-15-2024 10:22-0400 Heart rate 50 /min Jeanette Podlogar 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 Work Phone: [facility] 07-15-2024 10:22-0400 Systolic blood pressure 157 mm[Hg] Jeanette Podlogar 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 Work Phone: [facility] Comment on above: [facility] BP 07-15-2024 08:53-0400 Body mass index (BMI) [Ratio] 31.01 kg/m2 Jeanette Podlogar 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 Work Phone: [facility] 07-15-2024 08:53-0400 Body weight 79.4 kg Jeanette Podlogar 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 Work Phone: [facility] 07-15-2024 08:53-0400 Respiratory rate 18 /min Jeanette Podlogar 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 Work Phone: [facility] 07-15-2024 08:53-0400 SaO2% (BldA) [Mass fraction] 97 % Jeanette Podlogar 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 Work Phone: [facility] 01-08-2024 09:14-0400 Body mass index (BMI) [Ratio] 31.74 kg/m2 Jeanette Podlogar 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 Work Phone: [facility] 01-08-2024 09:14-0400 Body weight 81.28 kg Jeanette Podlogar 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 Work Phone: [facility] 01-08-2024 09:14-0400 Diastolic blood pressure 84 mm[Hg] Jeanette Podlogar 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 Work Phone: [facility] 01-08-2024 09:14-0400 Heart rate 55 /min Jeanette Podlogar 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 Work Phone: [facility] 01-08-2024 09:14-0400 Respiratory rate 18 /min Jeanette Podlogar 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 Work Phone: [facility] 01-08-2024 09:14-0400 SaO2% (BldA) [Mass fraction] 96 % Jeanette Podlogar 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 Work Phone: [facility] 01-08-2024 09:14-0400 Systolic blood pressure 136 mm[Hg] Jeanette Podlogar 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 Work Phone: [facility] 06-22-2023 08:55-0400 Body weight 80.47 kg Jeanette Podlogar 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 Work Phone: [facility] 06-22-2023 08:55-0400 Diastolic blood pressure 80 mm[Hg] Jeanette Podlogar 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 Work Phone: [facility] 06-22-2023 08:55-0400 Heart rate 60 /min Jeanette Podlogar 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 Work Phone: [facility] 06-22-2023 08:55-0400 Respiratory rate 16 /min Jeanette Podlogar 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 Work Phone: [facility] 06-22-2023 08:55-0400 SaO2% (BldA) [Mass fraction] 94 % Jeanette Podlogar 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 Work Phone: [facility] 06-22-2023 08:55-0400 Systolic blood pressure 132 mm[Hg] Jeanette Podlogar 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 Work Phone: [facility] 05-03-2023 08:18-0400 Body height 160.[address] Fabricio Lemos Work Phone: [facility] 05-03-2023 08:18-0400 Body weight 80.[address] Fabricio Lemos Work Phone: [facility] 05-03-2023 08:18-0400 Heart rate 67 /min Dr. Fabricio Lemos Work Phone: [facility] 05-03-2023 08:18-0400 SaO2% (BldA) [Mass fraction] 98 % Dr. Fabricio Lemos Work Phone: [facility] 03-21-2023 09:09-0400 Body weight 83.64 kg Jeanette Podlogar 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 Work Phone: [facility] 03-21-2023 09:09-0400 Diastolic blood pressure 82 mm[Hg] Jeanette Podlogar 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 Work Phone: [facility] 03-21-2023 09:09-0400 Heart rate 58 /min Jeanette Podlogar 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 Work Phone: [facility] 03-21-2023 09:09-0400 Respiratory rate 16 /min Jeanette Podlogar 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 Work Phone: [facility] 03-21-2023 09:09-0400 SaO2% (BldA) [Mass fraction] 96 % Jeanette Podlogar 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 Work Phone: [facility] 03-21-2023 09:09-0400 Systolic blood pressure 140 mm[Hg] Jeanette Podlogar 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 Work Phone: [facility] 03-13-2023 05:49-0400 Body mass index (BMI) [Ratio] 32.2 kg/m2 Dr. Fabricio Lemos Work Phone: [facility] 03-13-2023 05:49-0400 Body temperature 98.1 [degF] Dr. Fabricio Lemos Work Phone: [facility] 03-13-2023 05:49-0400 Body weight 82.[address] Fabricio Lemos Work Phone: [facility] 03-13-2023 05:49-0400 Diastolic blood pressure 85 mm[Hg] Dr. Fabricio Lemos Work Phone: [facility] 03-13-2023 05:49-0400 Heart rate 66 /min Dr. Fabricio Lemos Work Phone: [facility] 03-13-2023 05:49-0400 Respiratory rate 18 /min Dr. Fabricio Lemos Work Phone: [facility] 03-13-2023 05:49-0400 SaO2% (BldA) [Mass fraction] 93 % Dr. Fabricio Lemos Work Phone: [facility] 03-13-2023 05:49-0400 Systolic blood pressure 160 mm[Hg] Dr. Fabricio Lemos Work Phone: [facility] 02-20-2023 08:40-0400 Body weight 83.64 kg Jeanette Podlogar 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 Work Phone: [facility] 02-20-2023 08:40-0400 Diastolic blood pressure 78 mm[Hg] Jeanette Podlogar 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 Work Phone: [facility] 02-20-2023 08:40-0400 Heart rate 48 /min Jeanette Podlogar 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 Work Phone: [facility] 02-20-2023 08:40-0400 Respiratory rate 18 /min Jeanette Podlogar 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 Work Phone: [facility] 02-20-2023 08:40-0400 SaO2% (BldA) [Mass fraction] 95 % Jeanette Podlogar 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 Work Phone: [facility] 06-06-2023 08:40-0400 Systolic blood pressure 148 mm[Hg] Jeanette Berrios APRN.CNP Work Phone: 1(530)639-702979 [place] [address] 09-25-2022 07:58-0500 Body height 160.[address] Fabricio Lemos Work Phone: [facility] 09-25-2022 07:58-0500 Body mass index (BMI) [Ratio] 32.8 kg/m2 Dr. Fabricio Lemos Work Phone: 0(973)855-708523 [place] [address] 09-25-2022 07:58-0500 Body temperature 97.3 [degF] Dr. Fabricio Lemos Work Phone: 3(557)960-457823 [place] [address] 09-25-2022 07:58-0500 Body weight 83.[address] Fabricio Lemos Work Phone: 5(552)297-776423 [place] [address] 09-25-2022 07:58-0500 Diastolic blood pressure 79 mm[Hg] Dr. Fabricio Lemos Work Phone: 0(619)100-731423 [place] [address] 09-25-2022 07:58-0500 Heart rate 49 /min Dr. Fabricio Lemos Work Phone: 8(718)542-771923 [place] [address] 09-25-2022 07:58-0500 Respiratory rate 18 /min Dr. Fabricio Lemos Work Phone: 9(263)584-097423 [place] [address] 09-25-2022 07:58-0500 SaO2% (BldA) [Mass fraction] 94 % Dr. Fabricio Lemos Work Phone: 2(031)015-589586 [place] [address] 09-25-2022 07:58-0500 Systolic blood pressure 181 mm[Hg] Dr. Fabricio Lemos Work Phone: 3(405)898-003823 [place] [address] 09-19-2022 09:11-0500 Diastolic blood pressure 70 mm[Hg] Girish Lemos MD Work Phone: [facility] 09-19-2022 09:11-0500 Heart rate 56 /min Girish Lemos MD Work Phone: [facility] 09-19-2022 09:11-0500 Respiratory rate 16 /min Girish Lemos MD Work Phone: [facility] 09-19-2022 09:11-0500 SaO2% (BldA) [Mass fraction] 96 % Girish Lemos MD Work Phone: [facility] 09-19-2022 09:11-0500 Systolic blood pressure 122 mm[Hg] Girish Lemos MD Work Phone: [facility] 09-13-2022 10:00-0500 Diastolic blood pressure 75 mm[Hg] Dr. Fabricio Lemos Work Phone: [facility] Work Phone: 09-13-2022 10:00-0500 Heart rate 58 /min Dr. Fabricio Lemos Work Phone: [facility] Work Phone: 09-13-2022 10:00-0500 Respiratory rate 12 /min Dr. Fabricio Lemos Work Phone: [facility] Work Phone: 09-13-2022 10:00-0500 SaO2% (BldA) [Mass fraction] 94 % Dr. Fabricio Lemos Work Phone: [facility] Work Phone: 09-13-2022 10:00-0500 Systolic blood pressure 118 mm[Hg] Dr. Fabricio Lemos Work Phone: [facility] Work Phone: 09-13-2022 08:00-0500 Body temperature 97.9 [degF] Dr. Fabricio Lemos Work Phone: [facility] Work Phone: 09-13-2022 06:47-0500 Body height 160.[address] Fabricio Lemos Work Phone: [facility] Work Phone: 09-13-2022 06:47-0500 Body mass index (BMI) [Ratio] 32.2 kg/m2 Dr. Fabricio Lemos Work Phone: [facility] Work Phone: 09-13-2022 06:47-0500 Body weight 82.[address] Fabricio Lemos Work Phone: [facility] Work Phone: 09-04-2022 12:45-0500 Body mass index (BMI) [Ratio] 32.5 kg/m2 Dr. Fabricio Lemos Work Phone: [facility] Work Phone: 09-04-2022 12:45-0500 Body temperature 100.4 [degF] Dr. Fabricio Lemos Work Phone: [facility] Work Phone: 09-04-2022 12:45-0500 Body weight 86.[address] Fabricio Lemos Work Phone: [facility] Work Phone: 09-04-2022 12:45-0500 Diastolic blood pressure 81 mm[Hg] Dr. Fabricio Lemos Work Phone: [facility] Work Phone: 09-04-2022 12:45-0500 Heart rate 75 /min Dr. Fabricio Lemos Work Phone: [facility] Work Phone: 09-04-2022 12:45-0500 Respiratory rate 18 /min Dr. Fabricio Lemos Work Phone: [facility] Work Phone: 09-04-2022 12:45-0500 SaO2% (BldA) [Mass fraction] 94 % Dr. Fabricio Lemos Work Phone: [facility] Work Phone: 09-04-2022 12:45-0500 Systolic blood pressure 130 mm[Hg] Dr. Fabricio Lemos Work Phone: [facility] Work Phone: 08-22-2022 09:44-0500 Body height 160 cm Jeanette Podlogar 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 Work Phone: [facility] 08-22-2022 09:44-0500 Body weight 82.56 kg Jeanette Podlogar 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 Work Phone: [facility] 08-22-2022 09:44-0500 Diastolic blood pressure 78 mm[Hg] Jeanette Podlogar 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 Work Phone: [facility] 08-22-2022 09:44-0500 Heart rate 58 /min Jeanette Podlogar 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 Work Phone: [facility] 08-22-2022 09:44-0500 SaO2% (BldA) [Mass fraction] 95 % Jeanette Podlogar 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 Work Phone: [facility] 08-22-2022 09:44-0500 Systolic blood pressure 138 mm[Hg] Jeanette Podlogar 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 Work Phone: [facility] 07-24-2022 17:34-0500 Body temperature 97.7 [degF] Jamaica Kira 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 Work Phone: [facility] 07-24-2022 17:34-0500 Body weight 85.28 kg Jamaica Kira 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 Work Phone: [facility] 07-24-2022 17:34-0500 Diastolic blood pressure 68 mm[Hg] Jamaica Kira 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 Work Phone: [facility] 07-24-2022 17:34-0500 Heart rate 70 /min Jamaica Kira 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 Work Phone: [facility] 07-24-2022 17:34-0500 Respiratory rate 16 /min Jamaica Kira 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 Work Phone: [facility] 07-24-2022 17:34-0500 SaO2% (BldA) [Mass fraction] 97 % [place] Kira 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 Work Phone: [facility] 07-24-2022 17:34-0500 Systolic blood pressure 110 mm[Hg] [place] Malone APRN.RADIATION ENGINEER Work Phone: [facility] 03-23-2022 10:50-0400 Body temperature 98.71 [degF] Girish Lemos MD Work Phone: [facility] 03-23-2022 10:50-0400 Body weight 83.83 kg Girish Lemos MD Work Phone: [facility] 03-23-2022 10:50-0400 Diastolic blood pressure 84 mm[Hg] Girish Lemos MD Work Phone: [facility] 03-23-2022 10:50-0400 Heart rate 69 /min Girish Lemos MD Work Phone: [facility] 03-23-2022 10:50-0400 Respiratory rate 18 /min Girish Lemos MD Work Phone: [facility] 03-23-2022 10:50-0400 SaO2% (BldA) [Mass fraction] 95 % Girish Lemos MD Work Phone: [facility] 03-23-2022 10:50-0400 Systolic blood pressure 122 mm[Hg] Girish Lemos MD Work Phone: [facility] 01-05-2022 13:12-0400 Body height 162.[address] Fabricio Lemos Work Phone: [facility] Work Phone: 01-05-2022 13:12-0400 Body mass index (BMI) [Ratio] 33 kg/m2 Dr. Fabricio Lemos Work Phone: [facility] Work Phone: 01-05-2022 13:12-0400 Body temperature 97.2 [degF] Dr. Fabricio Lemos Work Phone: [facility] Work Phone: 01-05-2022 13:12-0400 Body weight 87.[address] Fabricio Lemos Work Phone: [facility] Work Phone: 01-05-2022 13:12-0400 Diastolic blood pressure 82 mm[Hg] Dr. Fabricio Lemos Work Phone: [facility] Work Phone: 01-05-2022 13:12-0400 Heart rate 64 /min Dr. Fabricio Lemos Work Phone: [facility] Work Phone: 01-05-2022 13:12-0400 Respiratory rate 16 /min Dr. Fabricio Lemos Work Phone: [facility] Work Phone: 01-05-2022 13:12-0400 SaO2% (BldA) [Mass fraction] 96 % Dr. Fabricio Lemos Work Phone: [facility] Work Phone: 01-05-2022 13:12-0400 Systolic blood pressure 131 mm[Hg] Dr. Fabricio Lemos Work Phone: [facility] Work Phone: 11-17-2021 12:35-0500 Diastolic blood pressure 78 mm[Hg] Dr. Fabricio Lemos Work Phone: [facility] Work Phone: 11-17-2021 12:35-0500 Heart rate 73 /min Dr. Fabricio Lemos Work Phone: [facility] Work Phone: 11-17-2021 12:35-0500 Respiratory rate 18 /min Dr. Fabricio Lemos Work Phone: [facility] Work Phone: 11-17-2021 12:35-0500 SaO2% (BldA) [Mass fraction] 94 % Dr. Fabricio Lemos Work Phone: [facility] Work Phone: 11-17-2021 12:35-0500 Systolic blood pressure 138 mm[Hg] Dr. Fabricio Lemos Work Phone: [facility] Work Phone: 11-17-2021 09:18-0500 Body mass index (BMI) [Ratio] 31.8 kg/m2 Dr. Fabricio Lemos Work Phone: [facility] Work Phone: 11-17-2021 09:18-0500 Body temperature 96.9 [degF] Dr. Fabricio Lemos Work Phone: [facility] Work Phone: 11-17-2021 09:18-0500 Body weight 81.[address] Fabricio Lemos Work Phone: [facility] Work Phone: 11-12-2021 19:00-0500 Diastolic blood pressure 77 mm[Hg] Dr. Fabricio Lemos Work Phone: [facility] Work Phone: 11-12-2021 19:00-0500 Heart rate 76 /min Dr. Fabricio Lemos Work Phone: [facility] Work Phone: 11-12-2021 19:00-0500 Respiratory rate 18 /min Dr. Fabricio Lemos Work Phone: [facility] Work Phone: 11-12-2021 19:00-0500 SaO2% (BldA) [Mass fraction] 93 % Dr. Fabricio Lemos Work Phone: [facility] Work Phone: 11-12-2021 19:00-0500 Systolic blood pressure 144 mm[Hg] Dr. Fabricio Lemos Work Phone: [facility] Work Phone: 11-12-2021 16:39-0500 Body mass index (BMI) [Ratio] 32.8 kg/m2 Dr. Fabricio Lemos Work Phone: [facility] Work Phone: 11-12-2021 16:39-0500 Body temperature 99.9 [degF] Dr. Fabricio Lemos Work Phone: [facility] Work Phone: 11-12-2021 16:39-0500 Body weight 83.[address] Fabricio Lemos Work Phone: [facility] Work Phone: Encounters Encounter Date Encounter Type Care Provider Facility Start: 02-17-2025 ambulatory Sherice Tovar ty:[facility] Start: 02-16-2025 End: 02-16-2025 Dr. Az Hoffmann MD -[facility] Start: 02-16-2025 End: 02-16-[address] Fabricio Lemos MD Work Phone: [facility] Work Phone: Start: 02-11-2025 End: 02-11-2025 Refill Girish Lemos MD Work Phone: [facility] Comment on above: Refill Request Start: 02-06-2025 ambulatory Fabricio Blackwell lity:[facility] Start: 02-06-2025 Dr. Sherice hernandez MD -[facility] Start: 02-03-[address] Rubi Fernandez MD -[facility] Start: 02-03-2025 End: 02-03-[address] Sherice Fernandez MD -[facility] Work Phone: Start: 02-03-2025 End: 02-03-2025 Dr. Sherice Fernandez MD -[facility] Work Phone: Start: 02-03-2025 End: 02-03-[address] Fabricio Lemos MD Work Phone: [facility] Work Phone: Start: 01-27-2025 End: 01-27-2025 Follow-up encounter Girish Lemos MD Work Phone: [facility] Start: 01-26-2025 End: 01-26-2025 Follow-up encounter Girish Lemos MD Work Phone: [facility] Comment on above: Results (Chest Xray) Start: 01-26-2025 End: 01-26-2025 Subsequent hospital visit by physician Xr [facility] [place] Work Phone: Radiology Comment on above: Viral URI with cough [J06.9] Start: 01-26-2025 End: 01-26-2025 Patient encounter procedure Girish Lemos MD Work Phone: [facility] Comment on above: Viral URI with cough (Primary Dx); Immunocompromised state (HCC) Start: 01-26-2025 End: 01-26-2025 ambulatory SILAS ROBBINS Facility:[facility] [place] Start: 01-13-2025 End: 01-13-2025 Patient encounter procedure Girish Lemos MD Work Phone: [facility] Comment on above: Chest pain, unspecif ied type (Primary Dx); Small cell carcinoma of lung, unspecified laterality, unspecified part of lung (HCC); 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); Metastasis to liver (HCC); 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 Jassi Borden MD -[facility] Work Phone: Start: 01-10-2025 Dr. Jassi Borden MD -[facility] Work Phone: Start: 01-10-2025 ambulatory Fabricio Lemos Faci lity:[facility] Start: 01-10-2025 Non-patient / Non-visit Dr. Santi valdez MD -[facility] Start: 01-10-2025 Dr. Santi Hurd MD -[facility] Start: 01-09-2025 End: 01-09-2025 Non-patient / Non-visit Dr. Man Polo MD -[facility] Work Phone: Start: 01-09-2025 End: 01-10-2025 ambulatory [facility] Facility:[facility] Start: 01-09-2025 End: 01-10-2025 Evaluation and management of inpatient Dr. Jassi Borden MD -Progressive Care Unit Work Phone: Start: 01-09-2025 End: 01-10-[address] Fabricio Lemos MD Work Phone: [facility] Work Phone: Start: 01-09-2025 End: 01-10-2025 Dr. Jassi Borden MD -[facility] Work Phone: Start: 01-09-[address] Rubi Fernandez MD -[facility] Start: 01-06-2025 End: 01-06-[address] Sherice Fernandez MD -[facility] Work Phone: Start: 01-06-2025 End: 01-06-2025 Dr. Sherice Fernandez MD -[facility] Work Phone: Start: 01-06-2025 End: 01-06-2025 ambulatory [facility] Start: 12-29-2024 End: 12-29-2024 Patient encounter procedure Sharda ARCHER [facility] Work Phone: Start: 12-29-2024 End: 12-29-[address] [facility] Work Phone: Start: 12-29-2024 End: 12-29-2024 ambulatory [facility] Facility:[facility] Start: 12-22-2024 End: 12-22-2024 Patient encounter procedure Rachael Mattson PA-C -[facility] Work Phone: Start: 12-22-2024 End: 12-22-2024 Rachael Mattson PA-C -[facility] Work Phone: Start: 12-22-2024 End: 12-22-2024 ambulatory Fabricio Lemos Facility:[facility] Start: 12-16-2024 End: 12-16-2024 Patient encounter procedure Sharda Bronson NP-C -[facility] Work Phone: Start: 12-16-2024 End: 12-16-2024 Sharda Bronson NP-[place] -[facility] Work Phone: Start: 12-16-2024 End: 12-16-2024 ambulatory Fabrciio Lemos [facility] Start: 12-15-2024 End: 12-15-2024 Refill Girish Lemos MD Work Phone: [facility] Comment on above: Encounter not needed Refill Request Start: 12-12-2024 [facility] Start: 12-12-2024 Non-patient / Non-visit Dr. Stefan Sorto MD -[facility] Start: 12-12-2024 Dr. Yeimi ramos MD -[facility] Start: 12-12-2024 End: 12-12-2024 Admission to same day surgery center Dr. Yeimi Sorto MD -[facility] Start: 12-12-2024 End: 12-12-2024 Dr. Yeimi Sorto MD -[facility] Start: 12-12-2024 End: 12-12-[address] Fabricio Lemos MD Work Phone: [facility] Work Phone: Start: 12-10-2024 End: 12-10-[address] Yeimi Sorto MD -[facility] Work Phone: Start: 12-10-2024 End: 12-10-2024 Dr. Yeimi Sorto MD -[facility] Work Phone: Start: 12-10-2024 End: 12-10-2024 ambulatory Yeimi Sorto [facility] Start: 12-09-[address] Rubi Fernandez MD -[facility] Start: 12-09-2024 End: 12-09-2024 Patient encounter procedure Sharda Audie EPIDEMIOLOGY INVESTIGATOR-C -[facility] Work Phone: Start: 12-09-2024 End: 12-09-2024 Sharda Audie EPIDEMIOLOGY INVESTIGATOR-C -[facility] Work Phone: Start: 12-09-2024 End: 12-09-2024 ambulatory Sharda Audie EPIDEMIOLOGY INVESTIGATOR Facility[place] Start: 12-03-2024 End: 12-03-[address] Fabricio Lemos MD Work Phone: [facility] Work Phone: Start: 12-03-2024 End: 12-03-[address] Sherice Fernandez MD -[facility] Work Phone: Start: 12-03-2024 End: 12-03-2024 Dr. Sherice Fernandez MD -[facility] Work Phone: Start: 12-02-2024 End: 12-02-2024 Patient encounter procedure Sharda Audie EPIDEMIOLOGY INVESTIGATOR-C -[facility] Work Phone: Start: 12-02-2024 End: 12-02-2024 Sharda Audie EPIDEMIOLOGY INVESTIGATOR-C -[facility] Work Phone: Start: 12-02-2024 End: 12-03-2024 ambulatory Fabricio Lemos Facility:[facility] Start: 11-24-2024 End: 11-24-[address] Sherice Fernandez MD -[facility] Work Phone: Start: 11-24-2024 End: 11-24-2024 Dr. Sherice Fernandez MD -[facility] Work Phone: Start: 11-24-2024 End: 11-24-2024 ambulatory Roxann Gomez NP Facility[place] Start: 11-23-2024 End: 11-23-2024 Dr. Alex Mercado MD -Emergency [facility] Work Phone: Start: 11-23-2024 End: 11-23-2024 Emergency department patient visit Dr. Fabricio Lemos MD Work Phone: -Emergency Department Work Phone: Start: 11-15-2024 Non-patient / Non-visit Dr. Mae Horton DO [facility] Work Phone: Start: 11-15-2024 Dr. Mae Horton DO [facility] Work Phone: Start: 11-14-2024 Non-patient / Non-visit Dr. Mae Horton DO [facility] Work Phone: Start: 11-14-2024 Dr. Mae Horton [facility] Work Phone: Start: 11-13-2024 Non-patient / Non-visit Dr. Mae Horton DO [facility] Work Phone: Start: 11-13-2024 Dr. Mae Horton DO [facility] Work Phone: Start: 11-12-2024 Non-patient / Non-visit Dr. Mae Horton DO [facility] Work Phone: Start: 11-12-2024 End: 11-15-2024 ambulatory Mae Horton Facility:[facility] Start: 11-12-2024 End: 11-15-2024 Evaluation and management of inpatient Dr. Mae Horton DO -Progressive Care Unit Work Phone: Start: 11-12-2024 End: 11-15-2024 Dr. Mae Horton DO -[facility] Work Phone: Start: 11-12-2024 End: 11-12-2024 ambulatory GIRISH LEMOS Facility:[facility] [place] Start: 11-12-2024 End: 11-12-2024 Patient encounter procedure Girish Lemos MD Work Phone: [facility] Comment on above: Generalized abdomina l pain (Primary Dx); Weight loss; Liver masses; Lung mass; Abnormal MRI, liver; Nausea and vomiting, unspecified vomiting type; Diarrhea, unspecified type; Dehydration; BRBPR (bright red blood per rectum) Start: 11-11-2024 End: 11-11-2024 Patient encounter procedure Roxann Gomez EPIDEMIOLOGY INVESTIGATOR-C -[facility] Start: 11-11-2024 End: 11-11-2024 Roxann Gomez EPIDEMIOLOGY INVESTIGATOR-C -[facility] Start: 11-11-2024 End: 11-11-2024 ambulatory Roxann Gomez NP Facility:[facility] Start: 11-05-2024 End: 11-13-2024 Telephone encounter Silas Robbins MD Work Phone: Hematology/Oncology Start: 11-05-2024 End: 11-05-2024 ambulatory Silas Robbins MD Work Phone: Hematology/Oncology Comment on above: Liver masses Start: 11-05-2024 End: 11-05-2024 Patient encounter procedure Silas Robbins MD Work Phone: Hematology/Oncology Start: 11-04-2024 End: 11-12-2024 Telephone encounter Girish Lemos MD Work Phone: [facility] Comment on above: Return Call Request Start: 11-03-2024 End: 11-03-2024 Telephone encounter Silas Robbins MD Work Phone: Hematology/Oncology Start: 11-03-2024 End: 11-03-2024 Patient encounter procedure Roxann Gomez NP-C -[facility] Work Phone: Start: 11-03-2024 End: 11-03-2024 Roxann Gomez NP-C -[facility] Work Phone: Start: 11-03-2024 End: 11-03-2024 ambulatory Roxann Gomez EPIDEMIOLOGY INVESTIGATOR Facility[place] Start: 10-31-2024 End: 11-03-2024 Telephone encounter Girish Lemos MD Work Phone: [facility] Comment on above: requesting disk Start: 10-30-2024 End: 12-30-2024 Follow-up encounter Girish Lemos MD Work Phone: [facility] Comment on above: Results Start: 10-30-2024 End: 10-30-2024 Telephone encounter Girish Lemos MD Work Phone: [facility] Comment on above: Patient Request Start: 10-30-2024 End: 10-30-2024 ambulatory GIRISH LEMOS Facility:[facility] [place] Start: 10-30-2024 End: 10-30-2024 Subsequent hospital visit by physician Maxine [facility] ([facility]) Work Phone: Cat Scan Comment on above: Liver masses [R16.0] Start: 10-22-2024 End: 10-22-2024 Telephone encounter Girish Lemos MD Work Phone: [facility] Comment on above: Orders Start: 10-20-2024 End: 10-31-2024 Telephone encounter Girish Lemos MD Work Phone: [facility] Comment on above: Results New Patient Start: 10-17-2024 End: 10-20-2024 Telephone encounter Lennox URIBE Navigation Start: 10-17-2024 End: 10-17-2024 ambulatory GIRISH LEMOS Facility:[facility] [place] Start: 10-17-2024 End: 10-17-2024 Patient encounter procedure Girish Lemos MD Work Phone: [facility] Comment on above: Liver masses (Primar y Dx); RUQ abdominal pain; Nausea and vomiting, unspecified vomiting type; Diarrhea, unspecified type Start: 10-16-2024 End: 10-20-2024 Telephone encounter Oleg Fields APRN.CNP Work Phone: [facility] Comment on above: Results Start: 10-16-2024 End: 10-16-2024 ambulatory GIRISH LEMOS Facility:[facility] [place] Start: 10-16-2024 End: 10-16-2024 Subsequent hospital visit by physician Maxine [facility] ([facility] Work Phone: Cat Scan Comment on above: Generalized abdomina l pain [R10.84] Start: 10-16-2024 End: 10-16-2024 Office outpatient visit 15 minutes Oleg Fields APRN.RADIATION ENGINEER Work Phone: [facility] Comment on above: Generalized abdomina l pain (Primary Dx); Diarrhea, unspecified type; Nausea Start: 10-16-2024 End: 10-16-2024 ambulatory GIRISH LEMOS Facility:[facility] [place] Start: 10-15-2024 End: 10-15-2024 ambulatory Girish Lemos MD Work Phone: [facility] [place] Comment on above: Abdominal Pain Start: 09-19-2024 End: 09-19-2024 Patient encounter procedure Girish Lemos MD Work Phone: [facility] [place] Comment on above: Primary hypertension (Primary Dx) Start: 09-19-2024 End: 09-19-2024 ambulatory GIRISH LEMOS Facility:[facility] [place] Start: 08-27-2024 End: 08-27-2024 Telephone encounter Girish Lemos MD Work Phone: [facility] [place] Comment on above: Patient Update Start: 08-19-2024 End: 08-19-2024 Patient encounter procedure Jeanette Podlogar 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 Work Phone: [facility] [place] Comment on above: Essential hypertensi on Start: 08-19-2024 End: 08-19-2024 ambulatory JEANETTE PODLOGAR Facility:[facility] [place] Start: 07-15-2024 End: 07-15-2024 ambulatory JEANETTE PODLOGAR Facility:[facility] [place] Start: 07-15-2024 End: 07-15-2024 Patient encounter procedure Jeanette Podlogar 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 Work Phone: [facility] Comment on above: Essential hypertensi on (Primary Dx); Non-seasonal allergic rhinitis, unspecified trigger; Encounter for immunization; Hyperlipidemia, unspecified hyperlipidemia type; Prediabetes; Stage 3 chronic kidney disease, unspecified whether stage 3a or 3b CKD (HCC); Pulmonary hypertension (HCC); First degree AV block; Acquired hypothyroidism Start: 07-15-2024 End: 07-15-2024 ambulatory JEANETTE BERRIOS Facility:[facility] [place] Start: 07-11-2024 End: 07-11-2024 Refill Girish Lemos MD Work Phone: [facility] Comment on above: Refill Request Start: 06-25-2024 End: 06-30-2024 ambulatory Girish Lemos MD Work Phone: Internal Medicine [place] [id number] Start: 06-16-2024 End: 06-16-2024 ambulatory Roxann Gomez EPIDEMIOLOGY INVESTIGATOR [place] Start: 06-13-2024 End: 06-13-2024 ambulatory XUAN ERNANDEZ [facility] Start: 06-02-2024 End: 06-02-2024 ambulatory Fabricio Lemos Facility:[facility] Start: 04-28-2024 Refill Girish Lemos MD Work Phone: [facility] Comment on above: Refill Request Start: 04-08-2024 End: 04-08-2024 ambulatory Roxann Gomez EPIDEMIOLOGY INVESTIGATOR Facility:[facility] Start: 04-01-2024 ambulatory Matthew Beard cility:[facility] Start: 04-01-2024 End: 04-01-2024 ambulatory Roxann Gomez EPIDEMIOLOGY INVESTIGATOR Facility:[facility] Start: 03-13-2024 End: 03-13-2024 ambulatory Roxann Gomez EPIDEMIOLOGY INVESTIGATOR [facility] Start: 03-06-2024 End: 03-06-2024 ambulatory XUAN ERNANDEZ [facility] Start: 01-21-2024 Telephone encounter Jeanette kirkland APRN.CNP Work Phone: [facility] Comment on above: Results Start: 01-21-2024 End: 01-21-2024 ambulatory [facility] Work Phone: Start: 01-21-2024 End: 01-21-2024 [facility] Work Phone: Start: 01-08-2024 End: 01-08-2024 Patient encounter procedure Jeanette Berrios 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 Work Phone: [facility] Comment on above: Essential hypertensi on (Primary Dx); Non-seasonal allergic rhinitis, unspecified trigger; Acquired hypothyroidism; Hyperlipidemia, unspecified hyperlipidemia type; Stage 3 chronic kidney disease, unspecified whether stage 3a or 3b CKD (HCC); Pulmonary hypertension (HCC); Muscle cramps Start: 10-23-2023 Refill Girish Lemos MD Work Phone: [facility] Comment on above: Refill Request Start: 07-25-2023 ambulatory Girish Lemos MD Work Phone: Internal Medicine [facility] Start: 06-22-2023 End: 06-22-2023 Patient encounter procedure Jeanette Berrios 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 Work Phone: [facility] Comment on above: Essential hypertensi on (Primary Dx); Encounter for immunization; Prediabetes; Acquired hypothyroidism; Stage 3 chronic kidney disease, unspecified whether stage 3a or 3b CKD (HCC); First degree AV block Start: 06-21-2023 End: 06-21-2023 ambulatory XUAN ERNANDEZ [facility] Start: 05-07-2023 Telephone encounter Fabricio Lemos MD Work Phone: [facility] Comment on above: Consult Start: 05-07-2023 Non-patient / Non-visit Dr. Johnny Lemos Work Phone: [facility] Start: 05-03-2023 End: 05-03-[address] Fabricio Lemos Work Phone: [facility] Work Phone: Start: 05-03-2023 End: 05-03-[address] [facility]ric[facility] Lem[facility] Work Phone: Start: 05-02-2023 Non-patient / Non-visit Dr. Johnny Lemos Work Phone: [facility] Start: 05-01-2023 End: 05-01-[address] Fabricio Lemos [facility] Work Phone: Start: 04-13-2023 Refill Girish Lemos MD Work Phone: [facility] Comment on above: Refill Request Start: 03-21-2023 End: 03-21-2023 Patient encounter procedure Jeanette Berrios APRN.RADIATION ENGINEER Work Phone: [facility] Comment on above: Primary hypertension (Primary Dx); Bradycardia; Skin eruption Start: 03-19-2023 Telephone encounter Fabricio Lemos MD Work Phone: [facility] Comment on above: Request Outside [facility] Records Start: 03-13-2023 End: 03-13-[address] [facility]io Leoms [facility] Work Phone: Start: 02-21-2023 Telephone encounter Jeanette kirkland 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 Work Phone: [facility] Comment on above: Results Start: 02-20-2023 End: 02-20-2023 Patient encounter procedure Jeanette Berrios 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 Work Phone: [facility] Comment on above: Essential hypertensi on (Primary Dx); Prediabetes; Acquired hypothyroidism; Hyperlipidemia, unspecified hyperlipidemia type; Bradycardia; First degree AV block; Stage 3 chronic kidney disease, unspecified whether stage 3a or 3b CKD (HCC) Start: 01-24-2023 End: 01-24-2023 Patient encounter procedure Talat Merida Work Phone: Podiatry Comment on above: Hammertoe of left fo ot (Primary Dx); Pain in toe of left foot; Other acute pulmonary embolism, unspecified whether acute cor pulmonale present (HCC) Start: 01-24-2023 End: 01-24-2023 Subsequent hospital visit by physician Xr [facility] Work Phone: Radiology Comment on above: Pain [R52] Start: 01-18-2023 End: 01-18-[address] Fabricio Lemos Work Phone: [facility] Work Phone: Start: 01-18-2023 End: 01-18-[address] Fabricio Lemos Work Phone: [facility]-Cat Scan, [facility] Start: 09-25-2022 End: 09-25-[address] Fabricio Lemos Work Phone: [facility]-Pulmonary Medicine [facility] Start: 09-22-2022 Telephone encounter Jeanette kirkland APRN.CNP Work Phone: [facility] Comment on above: Results Start: 09-20-2022 End: 09-20-2022 Subsequent hospital visit by physician Bone Density [facility] Work Phone: Radiology Comment on above: Screening for osteop orosis [Z13.820] Start: 09-19-2022 End: 09-19-2022 Patient encounter procedure Girish Lemos MD Work Phone: [facility] Comment on above: Skin tag (Primary Dx ); S/P cryotherapy of skin lesion Start: 09-13-2022 End: 09-13-2022 Emergency department patient visit Dr. Fabricio Lemos Work Phone: [facility]-Emergency Department Start: 09-08-2022 Telephone encounter Fabricio Lemos MD Work Phone: [facility] Comment on above: Medication Request Start: 09-04-2022 End: 09-04-[address] Fabricio Lemos Work Phone: [facility] Start: 08-23-2022 Telephone encounter Jeanette kirkland APRN.RADIATION ENGINEER Work Phone: [facility] Comment on above: Results Start: 08-22-2022 End: 08-22-2022 Patient encounter procedure Jeanette Berrios APRN.RADIATION ENGINEER Work Phone: [facility] Comment on above: Essential hypertensi on (Primary Dx); Encounter for immunization; Prediabetes; Hyperlipidemia, unspecified hyperlipidemia type; Acquired hypothyroidism; Ringworm of body; Screening for osteoporosis; Gastroesophageal reflux disease without esophagitis; Dyspareunia in female; Abnormal vaginal bleeding in postmenopausal patient Start: 08-17-2022 ambulatory Girish Lemos MD Work Phone: Internal Medicine [facility] Start: 08-04-2022 Refill Girish Lemos MD Work Phone: [facility] Comment on above: Refill Request Start: 07-26-2022 Telephone encounter Rosie Mcintosh APRN.RADIATION ENGINEER Work Phone: [facility] Comment on above: Results Start: 07-24-2022 End: 07-24-2022 Patient encounter procedure Jamaica Whippleyesi LIU.RADIATION ENGINEER Work Phone: [facility] Comment on above: Gross hematuria ([place] ching Dx); Acute vaginitis; Vulvar irritation Start: 07-24-2022 ambulatory Girish Lemos MD Work Phone: [facility] Comment on above: urinary symptoms Start: 03-23-2022 ambulatory Girish Lemos MD Work Phone: [facility] Comment on above: Cough Start: 03-23-2022 End: 03-23-2022 Patient encounter procedure Girish Lemos MD Work Phone: [facility] Comment on above: Suspected COVID-19 v irus infection (Primary Dx); Non-seasonal allergic rhinitis, unspecified trigger Start: 02-22-2022 Refill Girish Lemos MD Work Phone: [facility] [place] Comment on above: Refill Request Start: 01-18-2022 End: 01-18-[address] Fabricio Lemos Work Phone: [facility], [facility] Start: 01-05-2022 End: 01-05-[address] Fabricio Lemos Work Phone: [facility]-Pulmonary Medicine [facility] Start: 11-25-2021 End: 11-25-2021 Subsequent hospital visit by physician [facility] Work Phone: Radiology Comment on above: Pneumonia due to inf ectious organism, unspecified laterality, unspecified part of lung [J18.9] Start: 11-17-2021 End: 11-17-2021 Emergency department patient visit Dr. Fabricio Lemos Work Phone: [facility]-Emergency Department Start: 11-15-2021 End: 11-15-2021 Subsequent hospital visit by physician [facility] Work Phone: Radiology Comment on above: Fever, unspecified f ever cause [R50.9] Start: 11-12-2021 End: 11-12-2021 Emergency department patient visit Dr. Fabricio Lemos Work Phone: [facility]-Emergency Department Start: 10-06-2021 End: 10-06-[address] Fabricio Lemos Work Phone: [facility]-Sleep Lab Start: 09-08-2020 End: 09-08-2020 Patient encounter procedure [facility] Start: 09-06-2020 End: 09-06-2020 Patient encounter procedure [facility] Start: 09-01-2020 End: 09-01-2020 Patient encounter procedure [facility] Start: 08-25-2020 End: 08-25-2020 Patient encounter procedure [facility] Start: 08-18-2020 End: 08-18-2020 [facility] Procedures Date Procedure Procedure Detail Performing Clinician Start: 02-16-[address] Fabricio Lemos MD Work Phone: Start: 02-03-2025 Blood count smear mc rscp w/mnl difrntl wbc count Dr. Fabricio Lemos MD Work Phone: Start: 02-03-[address] Fabricio Lemos MD Work Phone: Start: 02-03-2025 Mean corpuscular hem oglobin concentration determination Dr. Fabricio Lemos MD Work Phone: Start: 02-03-2025 Nucleated red blood cell count procedure Dr. Fabricio Lemos MD Work Phone: Start: 02-03-2025 Platelet mean volume determination Dr. Fabricio Lemos MD Work Phone: Start: 02-03-2025 Serum inorganic phos phate measurement Dr. Fabricio Lemos MD Work Phone: Start: 01-26-2025 Radiologic exam ches t 2 views Girish Lemos MD Work Phone: Start: 01-10-2025 Blood count smear mc rscp w/mnl difrntl wbc count Dr. Fabricio Lemos MD Work Phone: Start: 01-10-[address] Fabricio Lemos MD Work Phone: Start: 01-10-2025 Flow cytometry cell surf marker techl only 1st Dr. Fabricio Lemos MD Work Phone: Start: 01-10-2025 Mean corpuscular hem oglobin concentration determination Dr. Fabricio Lemos MD Work Phone: Start: 01-10-2025 Platelet mean volume determination Dr. Fabricio Lemos MD Work Phone: Start: 01-09-2025 Plain chest X-ray Dr. Ansley Lemos MD Work Phone: Start: 01-09-2025 Nucleated red blood cell count procedure Dr. Fabricio Lemos MD Work Phone: Start: 01-09-[address] Fabricio Lemos MD Work Phone: Start: 01-09-[address] Fabricio Lemos MD Work Phone: Start: 12-29-2024 Myelocyte percent differential count Dr. Fabricio Lemos MD Work Phone: Start: 12-12-2024 Implantation to cardiovascular system Dr. Fabricio Lemos MD Work Phone: Start: 12-12-2024 Plain chest X-ray Dr. Ansley Lemos MD Work Phone: Start: 12-12-2024 Fluoroscopic guidance Wyatt Lemos MD Work Phone: Start: 12-03-2024 MRI of brain with contrast Dr. Fabricio Lemos MD Work Phone: Start: 11-23-2024 Blood count smear mc rscp w/mnl difrntl wbc count Dr. Fabricio Lemos MD Work Phone: Start: 11-23-[address] Fabricio Lemos MD Work Phone: Start: 11-23-2024 Mean corpuscular hem oglobin concentration determination Dr. Fabricio Lemos MD Work Phone: Start: 11-23-2024 Nucleated red blood cell count procedure Dr. Fabricio Lemos MD Work Phone: Start: 11-23-2024 Platelet mean volume determination Dr. Fabricio Lemos MD Work Phone: Start: 11-23-2024 Tri[address] lipa se measurement Dr. Fabricio Lemos MD Work Phone: Start: 11-14-2024 Biopsy/Inj or Needle Placement Dr. Fabricio Lemos MD Work Phone: Start: 11-14-2024 Dr. Fili Lemos MD Work Phone: Start: 11-14-[address] Fabricio Lemos MD Work Phone: Start: 11-14-2024 Mean corpuscular hem oglobin concentration determination Dr. Fabricio Lemos MD Work Phone: Start: 11-14-2024 Platelet mean volume determination Dr. Fabricio Lemos MD Work Phone: Start: 11-13-2024 Blood count smear mc rscp w/mnl difrntl wbc count Dr. Fabricio Lemos MD Work Phone: Start: 11-13-2024 Nucleated red blood cell count procedure Dr. Fabricio Lemos MD Work Phone: Start: 11-13-2024 Serum inorganic phos phate measurement Dr. Fabricio Lemos MD Work Phone: Start: 11-12-2024 Iadna-dna/rna gi pth gn multiplex probe tq 6-11 Dr. Fabricio Lemos MD Work Phone: Start: 11-12-2024 Measurement of occul t blood in stool specimen using immunoassay Dr. Fabricio Lemos MD Work Phone: Start: 11-12-[address] Fabricio Lemos MD Work Phone: Start: 11-12-2024 Urine microscopy: red cells Dr. Fabricio Lemos MD Work Phone: Start: 11-12-2024 Urnls dip stick/tabl et reagent auto microscopy Dr. Fabricio Lemos MD Work Phone: Start: 11-12-2024 Computed tomography of abdomen and pelvis with intravenous contrast Dr. Fabricio Lemos MD Work Phone: Start: 11-12-2024 Calculation of inter national normalized ratio Dr. Fabricio Lemos MD Work Phone: Start: 11-12-[address] se measurement Dr. Fabricio Lemos MD Work Phone: Start: 11-11-2024 Positron emission to mography with computed tomography Dr. Fabricio Lemos MD Work Phone: Start: 10-30-2024 Ct thorax w/contrast material Girish Lemos MD Work Phone: Start: 10-16-2024 Ct abdomen & pelvis w/contrast material Oleg Fields 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 Work Phone: Start: 01-21-2024 CT of chest Start: 06-22-2023 INFLUENZA VACCINE, P RSV FREE, AGE 65+ YR, HIGH DOSE, QUADRIVALENT (FLUZONE HIGH-DOSE) Jeanette Podlogar 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 Work Phone: Start: 02-20-2023 Ecg routine ecg w/le ast 12 lds i&r only [facility] Provider Start: 02-20-2023 Lipid 1996 panel - S anahi or Plasma Jeanette Podlogar 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 Work Phone: Start: 01-24-2023 Radex foot complete minimum 3 views Talat Merida Work Phone: Start: 01-18-[address] Fili Lemos Work Phone: Start: 09-20-2022 Dxa bone density tripp dy 1/> sites axial skel Jeanette Podlogar 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 Work Phone: Start: 09-13-2022 Plain chest X-ray Dr. Ansley Lemos Work Phone: Start: 08-22-2022 INFLUENZA SEASONAL QUADRIVALENT HIGH DOSE AGE 65+ Jeanette Podlogar 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 Work Phone: Start: 07-24-2022 Urnls dip stick/tabl et rgnt auto w/o microscopy Jamaica Malone 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 Work Phone: Start: 03-23-2022 2019 CORONAVIRUS Fili Lemos MD Work Phone: Start: 01-18-[address] Fili Lemos Work Phone: Start: 11-25-2021 Radiologic exam ches t 2 views Girish Lemos MD Work Phone: Start: 11-17-2021 Plain chest X-ray Dr. Ansley Lemos Work Phone: Start: 11-15-2021 Radiologic exam ches t 2 views Jeanette Podlogar 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 Work Phone: Start: 11-12-2021 Plain chest X-ray Dr. Ansley Lemos Work Phone: Start: 11-12-2021 SARS-CoV-2 Antigen (Rapid) Dr. Fabricio Lemos Work Phone: Start: 07-16-2019 Mammography Fabricio Lemos MD Work Phone: Start: 03-28-2018 Colonoscopy Fabricio Lemos MD Work Phone: Plan of Treatment Date Care Activity Detail Author Start: 2029 RSV Vaccine (1 - 1-dose 75+ series) RSV Vaccine (1 - 1-dose 75+ series) [facility] Start: 02-21-2028 Lipid 1996 panel - Serum or Plasma Lipid Screening [facility] Start: 02-21-2028 Lipid panel Lipid Screening [facility] Start: 02-21-2028 LIPID SCREEN LIPID SCREEN [facility] Start: 10-16-2027 Diabetes Screening Diabetes Screening [facility] Start: 08-22-2027 LIPID SCREEN LIPID SCREEN [facility] Start: 07-15-2027 Diabetes Screening Diabetes Screening [facility] Start: 01-17-2027 Diabetes Screening Diabetes Screening [facility] Start: 02-20-2026 DIABETES SCREEN DIABETES SCREEN [facility] Start: 02-20-2026 Diabetes Screening Diabetes Screening [facility] Start: 01-26-2026 Annual PCP Team Chronic Disease Visit Annual PCP Team Chronic Disease Visit [facility] Start: 01-26-2026 BP Controlled (<130/80) BP Controlled (<130/80) [facility] Start: 04-29-2026 Annual PCP Team Chronic Disease Visit Annual PCP Team Chronic Disease Visit [facility] Start: 01-13-2026 BP Controlled (<130/80) BP Controlled (<130/80) [facility] Start: 11-17-2025 LIPID SCREEN LIPID SCREEN [facility] Start: 11-12-2025 Annual PCP Team Chronic Disease Visit Annual PCP Team Chronic Disease Visit [facility] Start: 11-12-2025 BP Controlled (<130/80) BP Controlled (<130/80) [facility] Start: 10-30-2025 Screening for malignant neoplasm of lung Lung Cancer Screening [facility] Start: 10-17-2025 Annual PCP Team Chronic Disease Visit Annual PCP Team Chronic Disease Visit [facility] Start: 10-17-2025 BP Controlled (<130/80) BP Controlled (<130/80) [facility] Start: 10-16-2025 Annual PCP Team Chronic Disease Visit Annual PCP Team Chronic Disease Visit [facility] Start: 10-16-2025 Creatinine measurement Serum Creatinine [facility] Start: 09-19-2025 Annual PCP Team Chronic Disease Visit Annual PCP Team Chronic Disease Visit [facility] Start: 09-19-2025 BP Controlled (<130/80) BP Controlled (<130/80) [facility] Start: 08-22-2025 DIABETES SCREEN DIABETES SCREEN [facility] Start: 08-19-2025 Annual PCP Team Chronic Disease Visit Annual PCP Team Chronic Disease Visit [facility] Start: 07-15-2025 Annual PCP Team Chronic Disease Visit Annual PCP Team Chronic Disease Visit [facility] Start: 07-15-2025 Creatinine measurement Serum Creatinine [facility] Start: 04-14-2025 End: 04-14-2025 Patient encounter procedure 04/14/2025 9:40 AM EDT Office Visit [facility] [place] [address] [place] [address] Girish Lemos MD [address] [address] 3 month follow up [facility] [place] Comment on above: 3 month follow up Start: 02-16-2025 Injection of spinal epidural space [facility] Start: 02-16-2025 X-ray of lumbar spine, two or three views [facility] Start: 02-16-2025 Patient discharge [facility] Start: 02-05-2025 Vital signs measurements [facility] Start: 02-04-2025 Vital signs measurements [facility] Start: 02-03-2025 [facility] Start: 02-03-2025 Vital signs measurements [facility] Start: 01-20-2025 Screening for malignant neoplasm of lung Lung Cancer Screening [facility] Start: 01-17-2025 Creatinine measurement Serum Creatinine [facility] Start: 01-13-2025 End: 01-13-2025 Patient encounter procedure 01/13/2025 9:20 AM EDT Office Visit [facility] [address] [place] [address] Girish Lemos MD [address] [place] [address] 6 month follow up [facility] Comment on above: 6 month follow up Start: 01-10-2025 Patient discharge [facility] Start: 01-09-2025 Continuous positive airway pressure ventilation treatment [facility] Start: 01-09-2025 Chemotherapy care management [facility] Start: 01-09-2025 Venous catheter care management [facility] Start: 01-09-2025 Assessment of risk of venous thromboembolism [facility] Start: 01-09-2025 Care regimes management [facility] Start: 01-09-2025 Incentive spirometry [facility] Start: 01-09-2025 Insertion of catheter into peripheral vein [facility] Start: 01-09-2025 Measuring intake and output [facility] Start: 01-09-2025 Notification of physician [facility] Start: 01-09-2025 Oxygen therapy [facility] Start: 01-09-2025 Providing care according to standard [facility] Start: 01-09-2025 Provision of activity privileges [facility] Start: 01-09-2025 Referral to service [facility] Start: 01-09-2025 End: 01-09-2025 [facility] Start: 01-09-2025 Admission procedure [facility] Start: 01-09-2025 [facility] Start: 01-09-2025 Chemotherapy care management [facility] Start: 01-09-2025 Inhalation therapy procedure [facility] Start: 01-09-2025 Patient referral to dietitian [facility] Start: 01-08-2025 Vital signs measurements [facility] Start: 01-07-2025 Annual PCP Team Chronic Disease Visit Annual PCP Team Chronic Disease Visit [facility] Start: 01-07-2025 Vital signs measurements [facility] Start: 01-06-2025 Patient referral [facility] Work Phone: Start: 01-06-2025 Vital signs measurements [facility] Start: 12-26-2024 End: 12-26-2024 Patient encounter procedure 12/26/2024 10:30 AM EDT Office Visit [facility]astro[facility] [address] [place] [id number] Rachael Sheikh APRN.RADIATION ENGINEER [address] [place] [address] Abnormal MRI, liver [R93.2] [facility] Comment on above: Abnormal MRI, liver [R93.2] Start: 12-18-2024 Vital signs measurements [facility] Start: 12-17-2024 Vital signs measurements [facility] Start: 12-16-2024 Patient referral [facility] Work Phone: Start: 12-16-2024 Venous catheter care management [facility] Start: 12-16-2024 Vital signs measurements [facility] Start: 12-12-2024 Anesthesia access central venous circulation [facility] Start: 12-12-2024 Insj tunneled ctr vad w/subq port age 4 yr/> [facility] Start: 12-12-2024 [facility] Start: 12-12-2024 Patient discharge [facility] Start: 12-09-2024 Patient referral [facility] Work Phone: Start: 11-24-2024 Patient referral [facility] Work Phone: Start: 11-23-2024 [facility] Start: 11-15-2024 DIABETES SCREEN DIABETES SCREEN [facility] Start: 11-15-2024 Provision of activity privileges [facility] Start: 11-15-2024 Patient discharge [facility] Start: 11-14-2024 [facility] Start: 11-14-2024 Following clinical pathway protocol [facility] Start: 11-14-2024 Referral to service [facility] Start: 11-14-2024 End: 11-14-2024 Patient encounter procedure 11/14/2024 8:40 AM EST Office [facility] [address] [place] [address] Girish Lemos MD [address] [place] [address] 4 week follow up [facility] Comment on above: 4 week follow up Start: 11-14-2024 Catheterization of vein [facility] Start: 11-14-2024 Vital signs measurements [facility] Start: 11-13-2024 Provision of activity privileges [facility] Start: 11-12-2024 Biopsy liver needle percutaneous [facility] Start: 11-12-2024 Assessment of risk of venous thromboembolism [facility] Start: 11-12-2024 Inhalation therapy procedure [facility] Start: 11-12-2024 Insertion of catheter into peripheral vein [facility] Start: 11-12-2024 Measuring intake and output [facility] Start: 11-12-2024 Patient referral to dietitian [facility] Start: 11-12-2024 Providing care according to standard [facility] Start: 11-12-2024 Provision of activity privileges [facility] Start: 11-12-2024 Referral to occupational therapist [facility] Start: 11-12-2024 Referral to service [facility] Start: 11-12-2024 End: 11-12-2024 [facility] Start: 11-12-2024 Admission procedure [facility] Start: 11-05-2024 End: 11-05-2024 ambulatory 11/05/2024 9:00 AM EST Visit (SP) Office Hematology/Oncology [address] [place] [address] [place] [address] [place] [address] EPIDEMIOLOGY INVESTIGATOR/LIVER MASSES/REF PROV DR LEMOS* Hematology/Oncology Comment on above: EPIDEMIOLOGY INVESTIGATOR/LIVER MASSES/REF PROV DR LEMOS* Start: 10-30-2024 End: 10-30-2024 Patient encounter procedure 10/30/2024 8:00 AM EST Appointment Cat Scan [address] [place] [address] Liver masses [R16.0] Cat Scan Comment on above: Liver masses [R16.0] Start: 10-22-2024 End: 10-22-2024 Patient encounter procedure 10/22/2024 3:40 PM EST Appointment Cat Scan [address] [place] [address] Liver masses [R16.0] Cat Scan Comment on above: Liver masses [R16.0] Start: 10-21-2024 End: 10-21-2024 Patient encounter procedure 10/21/2024 8:20 AM EST Appointment Cat Scan [address] [place] [address] Liver masses [R16.0] Cat Scan Comment on above: Liver masses [R16.0] Start: 10-20-2024 End: 10-20-2024 Patient encounter procedure 10/20/2024 11:20 AM EST Appointment Cat Scan [address] [place] [address] Liver masses [R16.0] Cat Scan Comment on above: Liver masses [R16.0] Start: 10-17-2024 End: 01-16-2025 [id number] [Mass/volume] in Serum or Plasma [facility] Comment on above: Expected: 10/17/2024, Expires: Start: 10-17-2024 End: 10-17-2024 Patient encounter procedure 10/17/2024 1:00 PM EST Office Visit [facility] [place] [address] [facility] [place] [address] Girish Lemos MD [address] [facility] [place] [address] follow up to discuss resutls [facility] Comment on above: follow up to discuss resutls Start: 10-16-2024 End: 01-15-2025 Amylase [Enzymatic activity/volume] in Serum or Plasma [facility] Comment on above: Expected: 10/16/2024, Expires: Start: 10-16-2024 End: 01-15-2025 Lipase [Enzymatic activity/volume] in Serum or Plasma [facility] Work Phone: Comment on above: Expected: 10/16/2024, Expires: Start: 10-16-2024 End: 10-16-2024 Patient encounter procedure 10/16/2024 8:40 AM EST Office Visit [facility] [address] [place], [place] [id number] Oleg Fields APRN.RADIATION ENGINEER [address] [place] [address] Abdominal Pain. See triage 10/15/2024. [facility] Comment on above: Abdominal Pain. See triage 10/15/2024. Start: 09-19-2024 End: 09-19-2024 Patient encounter procedure 09/19/2024 9:40 AM EST Office Visit [facility] [address] [place] [address] Girish Lemos MD [address] [place] [address] 1 month follow up [facility] Comment on above: 1 month follow up Start: 09-17-2024 Advance Directive Discussion Advance Directive Discussion [facility] Start: 08-19-2024 End: 08-19-2024 Patient encounter procedure 08/19/2024 10:20 AM EST Office Visit [facility] [address] [place] [address] Jeanette Berrios APRN.RADIATION ENGINEER [address] [place], [place] [id number] BP check [facility] [place] Comment on above: BP check Start: 07-15-2024 End: 10-14-2024 Comprehensive metabolic 2000 panel - Serum or Plasma [facility] Work Phone: Comment on above: Expected: 07/15/2024, Expires: Start: 07-15-2024 End: 10-14-2024 Hemoglobin A1c in Blood [facility] Comment on above: Expected: 07/15/2024, Expires: Start: 07-15-2024 End: 07-15-2024 Patient encounter procedure 07/15/2024 9:00 AM EDT Office Visit [facility] [place] [address] [facility] [place] [address] PodJeanette tobar APRN.RADIATION ENGINEER [address] [place] [address] 6 month follow up [facility] [place] Comment on above: 6 month follow up Start: 07-09-2024 End: 07-09-2024 Patient encounter procedure 07/09/2024 9:40 AM EDT Office Visit [facility] [place] [address] [place] [address] Jeanette Berrios APRN.RADIATION ENGINEER [address] [place] [address] 6 month follow up [facility] [place] Comment on above: 6 month follow up Start: 06-22-2024 Annual PCP Team Chronic Disease Visit Annual PCP Team Chronic Disease Visit [facility] Start: 06-22-2024 BP Controlled (<130/80) BP Controlled (<130/80) [facility] Start: 05-18-2024 Covid-19 Vaccine ( season) Covid-19 Vaccine () [facility] Start: 05-18-2024 Influenza vaccination [facility]) [facility] Start: 03-21-2024 ANNUAL PCP TEAM CHRONIC DISEASE VISIT ANNUAL PCP TEAM CHRONIC DISEASE VISIT [facility] Start: 02-21-2024 ANNUAL PCP TEAM CHRONIC DISEASE VISIT ANNUAL PCP TEAM CHRONIC DISEASE VISIT [facility] Start: 02-21-2024 Creatinine measurement Serum Creatinine [facility] Start: 02-21-2024 SERUM CREATININE SERUM CREATININE [facility] Start: 01-19-2024 Influenza vaccination LUNG CANCER SCREENING [facility] Start: 01-19-2024 Screening for malignant neoplasm of lung Lung Cancer Screening [facility] Start: 01-08-2024 End: 04-08-2024 25-hydroxyvitamin D3 [Mass/volume] in Serum or Plasma VITAMIN D 25 HYDROXY Lab Routine Muscle cramps Expected: 01/08/2024, Expires: 04/08/2024 [facility] Work Phone: Comment on above: Expected: 01/08/2024, Expires: Start: 01-08-2024 End: 04-08-2024 CBC W Auto Differential panel - Blood COMPLETE BLOOD COUNT AND DIFFERENTIAL Lab Routine Muscle cramps Expected: 01/08/2024, Expires: 04/08/[address] [facility] Comment on above: Expected: 01/08/2024, Expires: 4 Start: 01-08-2024 End: 04-08-2024 Comprehensive metabolic 2000 panel - Serum or Plasma COMPREHENSIVE METABOLIC PANEL Lab Routine Essential hypertension Hyperlipidemia, unspecified hyperlipidemia type Expected: 01/08/2024, Expires: 04/08/[address] [facility] Comment on above: Expected: 01/08/2024, Expires: 4 Start: 01-08-2024 End: 04-08-2024 Thyrotropin [Units/volume] in Serum or Plasma THYROID STIMULATING HORMONE Lab Routine Muscle cramps Expected: 01/08/2024, Expires: 04/08/[address] [facility] Comment on above: Expected: 01/08/2024, Expires: 4 Start: 09-19-2023 ANNUAL PCP TEAM CHRONIC DISEASE VISIT ANNUAL PCP TEAM CHRONIC DISEASE VISIT [facility] Start: 09-19-2023 BP CONTROLLED (<130/80) BP CONTROLLED (<130/80) [facility] Start: 09-17-2023 Advance Directive Discussion Advance Directive Discussion [facility] Start: 08-22-2023 ANNUAL PCP TEAM CHRONIC DISEASE VISIT ANNUAL PCP TEAM CHRONIC DISEASE VISIT [facility] Start: 08-22-2023 End: 10-22-2023 Comprehensive metabolic 2000 panel - Serum or Plasma COMP METABOLIC PANEL Lab Routine Essential hypertension Expected: 08/22/2023, Expires: 10/22/2023 [facility] Work Phone: Comment on above: Expected: 08/22/2023, Expires: 4 Start: 08-22-2023 End: 10-22-2023 Hemoglobin A1c in Blood HGB A1C Lab Routine Prediabetes Expected: 08/22/2023, Expires: 10/22/2023 [facility] Work Phone: Comment on above: Expected: 08/22/2023, Expires: 4 Start: 08-22-2023 SERUM CREATININE SERUM CREATININE [facility] Start: 07-24-2023 BP CONTROLLED (<130/80) BP CONTROLLED (<130/80) [facility] Start: 05-18-2023 Covid-19 Vaccine () Covid-19 Vaccine () [facility] Start: 05-18-2023 Influenza vaccination INFLUENZA (#1) [facility] Start: 03-28-2023 Colonoscopy COLONOSCOPY [facility] Start: 03-28-2023 COLORECTAL CANCER SCREENING COLORECTAL CANCER SCREENING [facility] Start: 03-28-2023 Screening for malignant neoplasm of colon [facility] Start: 03-23-2023 ANNUAL PCP TEAM CHRONIC DISEASE VISIT ANNUAL PCP TEAM CHRONIC DISEASE VISIT [facility] Start: 02-20-2023 End: 04-22-2023 Comprehensive metabolic 2000 panel - Serum or Plasma [facility] Work Phone: Comment on above: Expected: 02/20/2023, Expires: 3 Start: 02-20-2023 End: 04-22-2023 Hemoglobin A1c in Blood [facility] Work Phone: Comment on above: Expected: 02/20/2023, Expires: 3 Start: 02-20-2023 End: 04-22-2023 Lipid 1996 panel - Serum or Plasma [facility] Work Phone: Comment on above: Expected: 02/20/2023, Expires: 3 Start: 02-20-2023 End: 04-22-2023 Magnesium [Mass/volume] in Serum or Plasma [facility] Work Phone: Comment on above: Expected: 02/20/2023, Expires: 3 Start: 02-20-2023 End: 04-22-2023 Thyrotropin [Units/volume] in Serum or Plasma [facility] Work Phone: Comment on above: Expected: 02/20/2023, Expires: 3 Start: 01-18-2023 Influenza vaccination LUNG CANCER SCREENING [facility] Start: 11-25-2022 ANNUAL PCP TEAM CHRONIC DISEASE VISIT ANNUAL PCP TEAM CHRONIC DISEASE VISIT [facility] Start: 11-25-2022 BP CONTROLLED (<130/80) BP CONTROLLED (<130/80) [facility] Start: 09-17-2022 ADVANCE DIRECTIVE DISCUSSION ADVANCE DIRECTIVE DISCUSSION [facility] Start: 09-13-2022 [facility] Work Phone: Start: 08-22-2022 End: 10-22-2022 Comprehensive metabolic 2000 panel - Serum or Plasma [facility] Work Phone: Comment on above: Expected: 08/22/2022, Expires: 3 Start: 08-22-2022 End: 10-22-2022 Hemoglobin A1c in Blood [facility] Work Phone: Comment on above: Expected: 08/22/2022, Expires: 3 Start: 08-22-2022 End: 10-22-2022 Lipid 1996 panel - Serum or Plasma [facility] Work Phone: Comment on above: Expected: 08/22/2022, Expires: 3 Start: 08-22-2022 End: 10-22-2022 Thyrotropin [Units/volume] in Serum or Plasma [facility] Work Phone: Comment on above: Expected: 08/22/2022, Expires: 3 Start: 07-24-2022 End: 09-23-2022 BACTERIAL VAGINOSIS AMPLIFICATION BACTERIAL VAGINOSIS AMPLIFICATION Lab Routine Acute vaginitis Expected: 07/24/2022, Expires: 09/23/2022 [facility] Work Phone: Comment on above: Expected: 07/24/2022, Expires: 3 Start: 05-18-2022 Influenza vaccination [facility] Start: 11-17-2021 BP CONTROLLED (<130/80) BP CONTROLLED (<130/80) [facility] Start: 09-17-2021 ADVANCE DIRECTIVE DISCUSSION ADVANCE DIRECTIVE DISCUSSION [facility] Start: 04-26-2021 COVID-19 VACCINE (3 - Booster for Moderna series) COVID-19 VACCINE (3 - Booster for Moderna series) [facility] Start: 04-09-2021 PNEUMOCOCCAL: 65+ (2 - PCV) PNEUMOCOCCAL: 65+ (2 - PCV) [facility] Start: 01-19-2021 COVID-19 VACCINE (3 - Booster for Moderna series) COVID-19 VACCINE (3 - Booster for Moderna series) [facility] Start: 01-19-2021 COVID-19 VACCINE (3 - Moderna series) COVID-19 VACCINE (3 - Moderna series) [facility] Start: 07-16-[address] [facility] Start: 07-16-2020 Screening for malignant neoplasm of breast Mammogram Screening [facility] Start: 2019 BONE DENSITY BONE DENSITY [facility] Start: 07-03-2018 Urine microalbumin profile DTAP,TDAP,TD (1 - Tdap) [facility] Start: 2014 RSV Vaccine (1 - 1-dose 60+ series) RSV Vaccine (1 - 1-dose 60+ series) [facility] Start: 2004 Influenza vaccination LUNG CANCER SCREENING [facility] Start: 2004 SHINGRIX VACCINE (1 of 2) SHINGRIX VACCINE (1 of 2) [facility] Start: 1999 COLOGUARD (FIT-DNA) COLOGUARD (FIT-DNA) [facility] Start: [address] COLONOGRAPHY [facility] Start: 1999 FECAL OCCULT BLOOD FECAL OCCULT BLOOD [facility] Start: 1999 Screening for malignant neoplasm of colon [facility] Start: 1999 SIGMOIDOSCOPY SIGMOIDOSCOPY [facility] Bacteria identified in Urine by Culture URINE CULTURE Microbiology Routine Gross hematuria Ordered: 07/24/2022 [facility] Work Phone: Comment on above: Ordered: 07/24/2022 SUNI / TRICHOMONA S AMPLIFICATION SUNI / TRICHOMONAS AMPLIFICATION Microbiology Routine Acute vaginitis Ordered: 07/24/2022 [facility] Work Phone: Comment on above: Ordered: 07/24/2022 COVID & INFLUENZA A/ B & RSV PCR, ROUTINE COVID & INFLUENZA A/B & RSV PCR, ROUTINE Microbiology Routine Viral URI with cough 01/26/2025 1:45 PM EDT [facility] Work Phone: CT Chest and Abdomen W contrast IV [facility] CT Chest and Abdomen W contrast IV [facility] End: 11-16-2025 CT Chest W contrast IV CT CHEST W IVCON Radiology STAT Liver masses 1 Occurrences starting 10/17/2024 until 11/16/2025 [facility] Work Phone: Comment on above: 1 Occurrences starting 10/17/2024 until 11/16/2025 End: 07-25-2025 DBT Breast - bilateral screening LYN SCREENING W ANT Radiology Routine Encounter for screening mammogram for breast cancer 1 Occurrences starting 06/25/2024 until 07/25/2025 [facility] Work Phone: Comment on above: 1 Occurrences starting 06/25/2024 until 07/25/2025 End: 09-21-2023 DXA-AXIAL SKELETON DXA-AXIAL SKELETON Radiology Routine Screening for osteoporosis 1 Occurrences starting 08/22/2022 until 09/21/2023 [facility] Work Phone: Comment on above: 1 Occurrences starting 08/22/2022 until 09/21/2023 End: 02-21-2024 ECG COMPLETE ECG COMPLETE ECG Routine Bradycardia 1 Occurrences starting 02/20/2023 until 02/21/2024 [facility] Work Phone: Comment on above: 1 Occurrences starting 02/20/2023 until 02/21/2024 ECG COMPLETE ECG COMPLETE ECG 02/20/2023 9:30 AM EDT [facility] End: 02-21-2024 EXERCISE STRESS ECG (WITHOUT IMAGING) EXERCISE STRESS ECG (WITHOUT IMAGING) Cardiology Routine Bradycardia First degree AV block 1 Occurrences starting 02/20/2023 until 02/21/2024 [facility] Work Phone: Comment on above: 1 Occurrences starting 02/20/2023 until 02/21/2024 Interventional radiology Consult note IR INTERVENTIONAL RADIOLOGY CONSULT Radiology Routine Abnormal MRI, liver Ordered: 10/16/2024 [facility] Work Phone: Comment on above: Ordered: 10/16/2024 End: 09-16-2023 LYN SCREENING LYN SCREENING Radiology Routine Encounter for screening mammogram for breast cancer 1 Occurrences starting 08/17/2022 until 09/16/2023 [facility] Work Phone: Comment on above: 1 Occurrences starting 08/17/2022 until 09/16/2023 End: 08-23-2024 LYN SCREENING LYN SCREENING Radiology Routine Encounter for screening mammogram for breast cancer 1 Occurrences starting 07/25/2023 until 08/23/2024 [facility] Work Phone: Comment on above: 1 Occurrences starting 07/25/2023 until 08/23/2024 Patient Education [facility] Work Phone: Patient referral [facility] Work Phone: Positron emission tomography with computed tomography [facility] Removal skn tags central 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 06-22-2023 influenza (HD-IIV4) vaccine, age 65+ yr, high dose, quadrivalent, PF (FLUZONE HIGH-DOSE) Jeanette Podlogar 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 Work Phone: [facility] 06-22-2023 influenza virus vaccine, unspecified formulation Girish Lemos MD Work Phone: [facility] 08-22-2022 influenza, high-dose , quadrivalent vaccine (FLUZONE HIGH DOSE QUADRIVALENT) Jeanette Podlogar 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 Work Phone: [facility] 08-22-2022 pneumococcal (PCV20) vaccine, 20 valent (PREVNAR 20) Jeanette Podlogar 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 Work Phone: [facility] 08-22-2022 pneumococcal Conjuga te, unspecified formulation Jeanette Podlogar 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 Work Phone: [facility] Work Phone: 11-24-2020 COVID-19 vaccine, fu ll dose (MODERNA) Girish Lemos MD Work Phone: [facility] 10-27-2020 COVID-19 vaccine, fu ll dose (MODERNA) Girish Lemos MD Work Phone: [facility] 07-17-2020 influenza, injectabl e, quadrivalent, preservative free [facility] 07-17-2020 influenza, seasonal, injectable Dr. Fabricio Lemos Work Phone: [facility] 07-17-2020 influenza, seasonal, injectable, preservative free Girish Lemos MD Work Phone: [facility] Work Phone: 04-09-2020 pneumococcal polysaccharide vaccine, 23 valent Girish Lemos MD Work Phone: [facility] 07-02-2019 influenza, injectabl e, quadrivalent, contains preservative Girish Lemos MD Work Phone: [facility] 07-02-2018 influenza, injectabl e, quadrivalent, contains preservative Girish Lemos MD Work Phone: [facility] 07-02-2018 tetanus and diphther ia toxoids, adsorbed, preservative free, for adult use (5 Lf of tetanus toxoid and 2 Lf of diphtheria toxoid) Girish Lemos MD Work Phone: [facility] 06-15-2017 influenza, injectabl e, quadrivalent, contains preservative Girish Lemos MD Work Phone: [facility] Work Phone: 07-24-2016 influenza, injectabl e, quadrivalent, contains preservative Girish Lemos MD Work Phone: [facility] Work Phone: 08-16-2015 influenza, seasonal, injectable Girish Lemos MD Work Phone: [facility] Work Phone: 06-17-2014 influenza, injectabl e, quadrivalent, preservative free Girish Lemos MD Work Phone: [facility] Work Phone: 05-18-2014 influenza, seasonal, injectable Girish Lemos MD Work Phone: [facility] Work Phone: 09-17-2012 influenza, seasonal, injectable Girish Lemos MD Work Phone: [facility] Work Phone: 09-17-2010 pneumococcal polysaccharide vaccine, 23 valent Girish Lemos MD Work Phone: [facility] Work Phone: 09-17-1992 tetanus and diphther ia toxoids, adsorbed, preservative free, for adult use (5 Lf of tetanus toxoid and 2 Lf of diphtheria toxoid) Girish Lemos MD Work Phone: [facility] Work Phone: Payers Date Payer Category Payer Self-pay [id number] 2022 Medicare (Managed Care) [facility] [id number] 2020 Medicare [id number] 2018 Medicare MMO MEDICARE MMO MEDADVANTAGE PPO [id number] 2018-Present [phone] [address] [place] [address] O [id number] 2018 Medicare [id number]. [id number] 2013 Unknown [id number] 1955 Unknown [id number] 2.16.840.1.399822.3.579.2. 903 1954 Unknown [id number] 2.16.840.1.856671.3.579.2. 903 1954 Unknown [id number] 2.16.840.1.605457.3.579.2. 903 1954 Unknown [id number] 2.16.840.1.879230.3.579.2. 651 1954 Unknown [id number] 2.16.840.1.457162.3.579.2. 651 1954 Unknown [id number] 2.16.840.1.192710.3.579.2. 651 Medicare [id number] Unknown [id number] 2.16.840.1.323971.3.579.2. 462 Unknown [id number] 2.16.840.1.487348.3.579.2. 462 Unknown [id number] 2.16.840.1.821617.3.579.2. 462 Unknown [id number] 2.16.840.1.235051.3.579.2. 462 Unknown [id number] 2.16.840.1.490368.3.579.2. 462 Unknown [id number] 2..840.1.582672.3.579.2. 462 Unknown [id number] 2..840.1.981341.3.579.2. 462 Unknown [id number] 2..840.1.779069.3.579.2. 462 Unknown [id number] 2..840.1.546169.3.579.2. 462 Unknown [id number] 2..840.1.205032.3.579.2. 462 Unknown [id number] 2..840.1.364239.3.579.2. 462 Unknown [id number] 2..840.1.015040.3.579.2. 462 Unknown [id number] 2..840.1.936568.3.579.2. 462 Unknown [id number] 2.16.840.1.260388.3.579.2. 462 Unknown [id number] 2.16.840.1.821155.3.579.2. 462 Unknown [id number] 2.16.840.1.819982.3.579.2. 462 Unknown [id number] 2.16.840.1.968651.3.579.2. 462 Unknown [id number] 2.16.840.1.647131.3.579.2. 462 Unknown [id number] 2.16.840.1.692497.3.579.2. 462 Unknown [id number] 2.16.840.1.606419.3.579.2. 462 Unknown [id number] 2.16.840.1.153592.3.579.2. 462 Unknown [id number] 2.16.840.1.183041.3.579.2. 462 Unknown [id number] 2.16.840.1.976031.3.579.2. 462 Unknown [id number] 2.16.840.1.431766.3.579.2. 462 Unknown [id number] 2.16.840.1.294762.3.579.2. 462 Unknown [id number] 2.16.840.1.486113.3.579.2. 462 Unknown [id number] 2.16.840.1.298181.3.579.2. 462 Unknown [id number] 2.16.840.1.628663.3.579.2. 462 Unknown [id number] 2.16.840.1.048813.3.579.2. 462 Unknown [id number] 2.16.840.1.601530.3.579.2. 462 Unknown [id number] 2.16.840.1.601043.3.579.2. 462 Unknown [id number] 2.16.840.1.157117.3.579.2. 462 Unknown [id number] 2.16.840.1.734489.3.579.2. 462 Unknown [id number] 2.16.840.1.166737.3.579.2. 462 Unknown [id number] 2.16.840.1.105220.3.579.2. 462 Social History Date Type Detail Facility Start: 01-05-2022 End: 06-13-2023 Tobacco smoking status NDIS Unknown if ever smoked [facility] Start: 07-22-2020 None [facility] Start: 07-16-2020 Cigarettes [facility] Start: 1955 Sex Assigned At Female W [facility] Start: 11-14-2017 End: 02-11-2025 Tobacco smoking status NHIS Ex-smoker [facility] Start: 08-14-1967 End: 08-14-2016 History of tobacco use Current smoker [facility] Start: 08-14-1967 End: 08-14-2016 History of tobacco use Cigarette Smoker [facility] Start: 11-14-2017 End: 01-24-2023 Cigarettes smoked current (pack per day) - Reported [address] [facility] Work Phone: Start: 11-14-2017 End: 07-15-2024 Tobacco use and exposure Smokeless tobacco non-user [facility] Start: 11-25-2021 End: 01-13-2025 Alcohol intake Current non-drinker of alcohol (finding) [facility] Start: 1955 Sex Assigned At Not on file [facility] Start: 10-16-2021 End: 03-23-2022 Exposure to SARS-CoV-2 (event) Not sure [facility] Start: 01-24-2023 End: 03-21-2023 Tobacco use panel [facility] Work Phone: National Score (1-100), lower number is lower risk [address] [facility] Work Phone: Start: 11-23-2024 End: 01-10-2025 Sex Female (finding) [facility] NEGATED: Highlighted row Not [facility] Medical Equipment Procedure Code Equipment Code Equipment Origin al Text Equipment Identifier Dates Insertion, vascular access port ([id number]) [id number] FDA Start: 12-12-2024 Goals Date Patient Goal Desired Activity /State Functional Status Date Assessment Result Facility 01-10-2025 Functional status Ambulates [facility] Work Phone: 11-15-2024 Functional status Ambulates;Up ad joselito [facility] Work Phone: Mental Status Date Assessment Result Facility 02-16-2025 Cognitive function Voice/Name [facility] Work Phone: 01-10-2025 Cognitive function Voice/Name [facility] Work Phone: 12-12-2024 Cognitive function Awake;Alert [facility] Work Phone: 12-12-2024 Cognitive function Voice/Name [facility] Work Phone: 11-24-2024 Cognitive function Voice/Name [facility] Work Phone: 11-23-2024 Cognitive function Awake;Alert;A ppropriate;Follow s Commands [facility] Work Phone: 11-15-2024 Cognitive function Voice/Name [facility] Work Phone: 09-13-2022 Cognitive function Level Of Cons ciousness Awake;Alert;Appropriate;Follow s Commands [facility] Work Phone: Clinical Notes 11-25-2021 to 02-16-2025 Telephone Encounter - Lindsey Up - 02/11/2025 8:39 AM EDTTelephone Encounter - Lindsey Up - 02/11/2025 8:39 AM EDT Note Date & Type Note Facility 02-16-2025 Procedure note [facility] 02-11-2025 Telephone encount er Note Prescription Refill Information The patient has been identified by name and date of : Yes Caregiver verified no other encounters exist for this prescription request: Yes Caregiver confirmed with patient/requestor that no other refills are due, in the near future, with this provider at this time: Yes The last office visit in the department: 01-26-25 Does the patient have a future office visit with this provider/department: Yes Requested Prescriptions Pending Prescriptions Disp Refills levothyroxine (SYNTHROID) 25 mcg tablet 90 tablet 1 Sig: Take 1 tablet by mouth once daily. levothyroxine (SYNTHROID) 25 mcg tablet 14 tablet 0 Sig: Take 1 tablet by mouth once daily. Lindsey Royal February 11, 2025 8:[address] [facility] 02-11-2025 Miscellaneous Notes Formattin g of this note is different from the original. Prescription Refill Information The patient has been identified by name and date of : Yes Caregiver verified no other encounters exist for this prescription request: Yes Caregiver confirmed with patient/requestor that no other refills are due, in the near future, with this provider at this time: Yes The last office visit in the department: 01-26-25 Does the patient have a future office visit with this provider/department: Yes Requested Prescriptions Pending Prescriptions Disp Refills levothyroxine (SYNTHROID) 25 mcg tablet 90 tablet 1 Sig: Take 1 tablet by mouth once daily. levothyroxine (SYNTHROID) 25 mcg tablet 14 tablet 0 Sig: Take 1 tablet by mouth once daily. Lindsey Royal February 11, 2025 8:40 AM documented in this encounter [facility] 02-03-2025 Progress note [facility] 02-03-2025 Progress note Note Date/Time February 03, 2025 9:29am [address] [address] OFFICE VISIT Date of Service: 02/03/25 0856 MR#: [id number] Acct: [id number] Name: BETSY RODRIGEZ Rep #: [id number] : 1955 From: Sherice ramirez MD Age/Sex: 69/F Location: [facility] [place] Status: Signed HPI Subjective Date of Service 02/03/25 Chief Complaint Metastatic lung cancer History of Present Illness 69-year-old female ex-smoker who presented with rapid progression of right upperquadrant pain, anorexia, and weight loss. October 31, 2024 CT scan of the chest ([facility]): Left upper lobe perihilar mass with mediastinal and left hilar adenopathy. November 11, 2024 PET/CT: IMPRESSION: 1. Hypermetabolic left upper lobe pulmonary nodule with FDG avid mediastinal andleft hilar lymphadenopathy, most compatible with primary lung cancer with regional lymph node involvement. 2. Hepatomegaly without obvious hypermetabolic lesion, however visualization of known hepatic metastases is limited by FDG technique. Visualization of hepatic metastases are much better visualized on recent CT abdomen pelvis. 3. Numerous axial and appendicular hypermetabolic osseous lesions, compatible with osseous metastatic disease. November 12, [address]: IMPRESSION: Hepatomegaly. Diffuse hepatic metastasis. November 14, 2024 Liver lesion, CT guided core biopsy: - Metastatic high-grade neuroendocrine carcinoma December 03, 2024 brain MRI: IMPRESSION: 1. 1.3 cm enhancing lesion in the RIGHT parietal calvarium is nonspecific but suspicious for possible osseous metastatic disease. This was unfortunately likely above the field of view on recent PET/CT. Recommend clinical/oncologic follow-up. Dedicated PET/CT of the head/calvarium could be considered. 2. Mild RIGHT maxillary paranasal sinus disease including evidence of possible mild acute sinusitis. Treatment Summary: Carboplatin/etoposide/atezolizumab (added with cycle 2) November 25, 2024- Interval History Had an episode of atypical retrosternal chest pain in January 09, 2025 within minutes following receiving growth factor, lasted for minutes then resolved. A cardiac event was ruled out. No recurrence PFSH Medical History Hypothyroidism GERD (gastroesophageal reflux disease) Sleep apnea Elevated troponin Chest pain Sleep disturbance Encounter for chemotherapy management Internal hemorrhoids Current use of steroid medication Ambulates with cane Back pain Heartburn On home oxygen therapy Bilateral lower extremity edema High grade neuroendocrine carcinoma of lung Jaundice Regional lymph node metastasis present Metastasis to bone Small cell lung cancer Loss of hearing Wears glasses Wears dentures Post-menopausal Thyroid disease Arthritis High cholesterol DVT (deep venous thrombosis) Injury of back Migraine headache Syncope Difficulty chewing History of hiatal hernia History of ulceration History of diverticulitis Gastric reflux Former smoker Asthma CPAP (continuous positive airway pressure) dependence Leg cramps Shortness of breath on exertion History of pain when walking Hypertension Heart murmur History of echocardiogram History of stress test Cardiology follow-up encounter Bradycardia Chronic respiratory failure with hypoxia Smoking greater than 40 pack years ARMANDO (obstructive sleep apnea) Pulmonary hypertension Bronchiectasis History of staph infection HTN (hypertension) Hypoxia COVID-19 Surgical History Hx of right cataract extraction Hx of left cataract extraction Hx of breast reconstruction Hx of foot surgery Hx of surgical amputation of finger Hx of elbow surgery History of carpal tunnel surgery Hx of vein stripping History of cholecystectomy History of back surgery History of eye surgery History of breast biopsy History of tubal ligation History of History of appendectomy History of tonsillectomy Family History Mother Cancer Hx Lung CA. Father Cancer Hx Lung CA. Social History household members: spouse Smoking Status: Former smoker quit date: 08/17/16 Tobacco: How many years used: 45 alcohol intake: never ROS ROS Narrative Overall I feel a lot better Constitutional Constitutional: Reports systems reviewed and no addt'l complaints, except as documented and fatigue; Denies anorexia, fever(s) or weight loss Eyes Eyes: Reports systems reviewed and no addt'l complaints, except as documented ENT HEENT: Reports systems reviewed and no addt'l complaints, except as documented, headache(s), nasal discharge and sinus pressure; Denies mouth lesions Cardiovascular Cardiovascular: Reports systems reviewed and no addt'l complaints, except as documented; Denies chest pain with activity or edema Respiratory/Chest Respiratory/Chest: Reports systems reviewed and no addt'l complaints, except as documented; Denies dyspnea or hemoptysis Gastrointestinal Gastrointestinal: Reports systems reviewed and no addt'l complaints, except as documented, anorexia and heartburn; Denies abdominal pain, change in bowel habits, dysphagia, nausea or vomiting Genitourinary Genitourinary: Reports systems reviewed and no addt'l complaints, except as documented; Denies dysuria Musculoskeletal Musculoskeletal: Reports systems reviewed and no addt'l complaints, except as documented and back pain Integumentary Integumentary: Reports systems reviewed and no addt'l complaints, except as documented; Denies new lesions Neurologic Neurologic: Reports systems reviewed and no addt'l complaints, except as documented and weakness; Denies focal weakness, frequent falls or paresthesias Psychiatric Psychiatric: Reports systems reviewed and no addt'l complaints, except as documented Endocrine Endocrinology: Reports systems reviewed and no addt'l complaints, except as documented Hematologic/Lymphatic Hematologic/Lymphatic: Reports systems reviewed and no addt'l complaints, exceptas documented Allergic/Immunologic Allergic/Immunologic: Reports systems reviewed and no addt'l complaints, except as documented Intake Vital Signs 01/06/25 08:55 02/03/25 08:57 02/03/25 09:01 Height 5 ft 3 in 5 ft 3 in 5 ft 3 in Weight: 64.183 kg BMI 25.0 BP 134/81 H Blood Pressure Location Lt brachial Position Sitting Respiration 16 Pulse 76 Pulse Source Monitor Temp 97.4 F L Temperature Source Temporal Artery Pulse Oximetry (%) 92 Oxygen Delivery Method room air Intake Is patient in pain?: Yes (neck pain ) Pain scale (1-10): 6 Allergies MEAGAN Inhibitors Allergy (Verified 02/03/25 09:01) Rash codeine Allergy (Verified 02/03/25 09:01) Vomiting walnut Allergy (Verified 02/03/25 09:) Food Allergy prednisone Adverse Reaction (Verified 02/03/25 09:) Other Llfteal-BZQ-DoZ Reductase Inhibitor (Apqbkfw-Dvf-Rzq Reductase Inhibitor) Adverse Reaction (Verified 02/03/25 09:01) cramps Medications ?Medication ?Instructions ?Recorded ?Confirmed ?Type levothyroxine 25 mcg tablet 25 mcg PO DAILY thyroid 02/03/25 History gabapentin 400 mg capsule 400 mg PO TID nerve pain 02/03/25 History Disability Placard #1 ea 09/15/20 02/03/25 Rx potassium citrate 10 mEq (1,080 20 meq PO DAILY potass ium 01/26/22 02/03/25 History mg) tablet,extended release albuterol sulfate 90 mcg/actuation 2 puff inhalation Q 4H PRN 06/13/23 02/03/25 History aerosol inhaler shortness of breath or wheez ing fluticasone propionate 50 1 spray intranasal DAILY PRN nasal 05/28/24 02/03/25 History mcg/actuation nasal congestion spray,suspension (Flonase Allergy Relief) cholecalciferol (vitamin D3) 25 25 mcg PO DAILY vitami n 11/12/24 02/03/25 History mcg (1,000 unit) capsule (Vitamin D3) losartan 25 mg tablet 25 mg PO DAILY blood pressur e 11/12/24 02/03/25 History ondansetron HCl 8 mg tablet 8 mg PO Q8H PRN nausea and vomiting 11/24/24 02/03/25 History docusate sodium 100 mg capsule 100 mg PO BID PRN const ipation 12/11/24 02/03/25 History omeprazole 40 mg capsule,delayed 40 mg PO BID gerd 02/03/25 History release lidocaine-prilocaine 2.5 %-2.5 % 1 applic topical ONCE PRN port 12/15/24 02/03/25 Rx topical cream access 30 days #30 grams prochlorperazine maleate 10 mg 10 mg PO Q6H PRN nausea and 12/15/24 02/03/25 Rx tablet vomiting #30 tabs mirtazapine 15 mg tablet 15 mg PO QHS sleep #30 tabs 12/29/24 02/03/25 Rx calcium carbonate (Calcium 600) 600 mg PO DAILY suppli ment 01/09/25 02/03/25 History oxycodone 10 mg tablet 10 mg PO Q4H PRN pain 02/03/25 History furosemide 20 mg tablet 20 mg PO DAILY PRN leg 01/1002/03/25 Rx swelling/SOB #30 tabs Have you fallen in the past year?: No Central Venous Access Central Venous Access: Yes Port/PICC: Port CBC, CMP February 03, 2025 reviewed in EMR Exam Physical Exam Narrative ECOG 1-2 Const General Appearance: cooperative and frail HEENT Face and Sinus: normal facial exam Mouth: dry mucous membranes and No thrush Eyes General Eye: normal appearance of both eyes Neck no JVD Lymph Lymphatic: no lymphadenopathy noted Chest Chest: vascular access Resp Auscultation: diminished lung sounds bilateral and diffuse Cardio regular rate and regular rhythm Jugular Venous Distention: Negative for JVD GI soft to palpation and non-tender Back/Spine no thoracic nor lumbar tenderness Extremity General Extremity: edema bilateral lower extremity Details: trace; Negative for clubbing or cyanosis Skin no rashes or lesions noted Neuro CN's II-XII intact bilaterally, moves all extremities and no focal motor deficits Coordination / Balance: twpaaw-ko-pfcf test normal Speech: speech normal Gait (Neuro): normal gait Psych cooperative Coding Level of Care Code Off vis,est,level 4 Exam Problem Focused Diagnoses Regional lymph node metastasis present C77.9 Metastasis to bone C79.51 Metastasis to liver C78.7 Jaundice R17 High grade neuroendocrine carcinoma of lung C7A.1 Assessment and Plan Assessment and Plan (1) Regional lymph node metastasis present: Status: Acute (2) Metastasis to bone: Status: Acute (3) Metastasis to liver: Status: Acute (4) Jaundice: Status: Resolved (5) High grade neuroendocrine carcinoma of lung: Status: Acute Plan 69-year-old female with extensive stage IV high-grade neuroendocrine tumor of the lung cancer of the left upper lobe with metastasis to hilar and mediastinal lymph nodes, bones and extensive liver metastases. She presented with right upper quadrant pain from metastatic liver disease, rapidly evolving jaundice and JARRETT. She started systemic therapy with cycle 1 carboplatin etoposide urgently November 26, 2019 and as she improved and jaundice resolved atezolizumab was added as of cycle 2 Chronic comorbid conditions: Hypertension, dyslipidemia, GERD, Plan: 1. Continue systemic chemotherapy with carboplatin etoposide atezolizumab combination for 4-6 cycles to be followed by atezolizumab maintenance. 2. Continue growth factor support for primary prophylaxis being high risk for febrile neutropenic sepsis. 3. Elective imaging with CT scan of the chest and abdomen after cycle 4 and prior to going on maintenance immunotherapy. 4. Pain management as per consult. 5. To obtain dental clearance, if any dental work is needed to schedule 1 monthafter cycle of combination chemoimmunotherapy and then can start on supportive therapy with zoledronic acid. Patient was seen with her family, impression and plan discussed. Sherice Fernandez MD Financial Planning Adviser, [facility] Divisions of Medical Oncology & Hematology Department of Internal Medicine [place] [phone] This note was generated using a voice recognition system software. Although itwas reviewed by the author prior to finalization, it may still contain incorrectwords, spelling, and punctuation that were not noted when reviewing prior to saving. If a clinically significant typo or inaccurately typed phrase is noted, please notify the author. Clinical Quality Measures Falls Risk Screening/Assistive Devices Have you fallen in the past year?: No 02/03/25 0929 <Electronically signed by Sherice delgadillo MD> Date _ Sherice Fernandez MD Cosigner Signature: Date (if applicable) CC: ~ [employer] Work Phone: [phone] Telephone encounter Note* Telephone Encounter - Rosario Haddad LPN - 01/27/2025 12:28 PM EDT Phoned patient and reviewed results with her. She voiced understanding. Rosario Haddad LPN [facility]05-13-2025 Miscellaneous Notes* Telephone Encounter - Rosario Haddad LPN - 01/27/2025 12:28 PM EDT Phoned patient and reviewed results with her. She voiced understanding. Rosario Haddad LPN * Telephone Encounter - Rosario Haddad LPN - 01/27/2025 12:27 PM EDT ----- Message from Girish Lemos MD sent at 01/27/2025 7:13 AM EDT ----- Negative for COVID/flu/RSV. Continue supportive care as discussed in office and call with worseningsymptoms. [facility] Telephone encounter Note * Telephone Encounter - Rosario Haddad LPN - 01/27/2025 12:27 PM EDT ----- Message from Girish Lemos MD sent at 01/27/2025 7:13 AM EDT ----- Negative for COVID/flu/RSV. Continue supportive care as discussed in office and call with worseningsymptoms. [facility]05-12-2025 Telephone encounter Note* Telephone Encounter - Rosario Haddad LPN - 01/26/2025 3:06 PM EDT Phoned patient and updated her with results. Patient voiced understanding. Rosario Haddad LPN [facility]05-12-2025 Miscellaneous Notes* Telephone Encounter - Rosario Haddad LPN - 01/26/2025 3:06 PM EDT Phoned patient and updated her with results. Patient voiced understanding. Rosario Haddad LPN * Telephone Encounter - Rosario Haddad LPN - 01/26/2025 3:05 PM EDT ----- Message from Girish Lemos MD sent at 01/26/2025 2:40 PM EDT ----- Patient's CXR is negative for pneumonia. Otherwise, stable xray. Continue treatment as discussed. [facility] Telephone encounter Note * Telephone Encounter - Rosario Haddad LPN - 01/26/2025 3:05 PM EDT ----- Message from Girish Lemos MD sent at 01/26/2025 2:40 PM EDT ----- Patient's CXR is negative for pneumonia. Otherwise, stable xray. Continue treatment as discussed. [facility]05-12-2025 History of Present illness Narrative* Antonia Simms RT(R) - 01/26/2025 1:50 PM EDT Radiology Service Progress Note PATIENT NAME: Betsy Rodrigez DATE OF SERVICE: January 26, 2025 TIME: 1:47 PM PATIENT IDENTITY VERIFICATION COMPLETED USING TWO (2) IDENTIFIERS: Name and Date of confirmedby patient verbally. FALL SCREENING: Has the patient had 2 falls in the last year or 1 fall with injury or currently using an Ambulatory Assistive Device (Walker, Cane, Wheelchair, Crutches, etc.)? No PATIENT GENDER DATA: Assigned female at . status: : No status:NO. PATIENT RELEVANT IMPLANT DATA REVIEWED: Not Applicable PATIENT PRESENTS WITH AN IMPLANTABLE OR ATTACHED SHADOWGRAPH OPERATOR: No RADIOLOGY DEPARTMENT: General X-ray: Exam(s) Completed: Chest X-Ray PERIPHERAL IV DATA: Not applicable SIGNED BY: RT Dameon(Coy) January 26, 2025 1:47 PM documented in this encounterMer[facility]25 NoteHNO ID: [id number] Author: ANTONIA SIMMS RT (R) Service: Radiology Author Type: Technologist Type: Progress Notes Filed: 01/26/2025 13:53 Note Text: Radiology Service Progress Note PATIENT NAME: Betsy Rodrigez DATE OF SERVICE: January 26, 2025 TIME: 1:47 PM PATIENT IDENTITY VERIFICATION COMPLETED USING TWO (2) IDENTIFIERS: Name and Date of confirmed by patient verbally. FALL SCREENING: Has the patient had 2 falls in the last year or 1 fall with injury or currently using an Ambulatory Assistive Device (Walker, Cane, Wheelchair, Crutches, etc.)? No PATIENT GENDER DATA: Assigned female at . status: : No status: NO. PATIENT RELEVANT IMPLANT DATA REVIEWED: Not Applicable PATIENT PRESENTS WITH AN IMPLANTABLE OR ATTACHED SHADOWGRAPH OPERATOR: No RADIOLOGY DEPARTMENT: General X-ray: Exam(s) Completed: Chest X-Ray PERIPHERAL IV DATA: Not applicable SIGNED BY: RT Dameon(Coy) January 26, 2025 1:47 [facility]05-12-2025 FhieXNHF-BUQ-4 (AGENT OF COVID-19) RNA: Not detected INFLUENZA A RNA: Not detected INFLUENZA B RNA: Not detected RESPIRATORY SYNCYTIAL VIRUS (RSV) RNA: Not detectedUc West Chester HospitalComment on above:Performed By: #### [id number] ####[facility] LABCLIA [id number] [address]05-12-2025 Instructions* Patient Instructions* Girish Lemos MD - 01/26/2025 1:38 PM EDT Take the prescribed Tessalon Perles as needed for your cough (the order was sent to [facility] in [place]). For additional cough relief, you may use vkte-ivj-qwyzeto cough drops or Delsym if desired. For your sore throat, try drinking tea with honey, gargling warm salt water, and using yyxd-wow-euympgn chloraseptic sprays or lozenges. Drink plenty of fluids, rest, and continue to wear your mask and wash your hands. A COVID/Flu/RSV swab and a chest x-ray were done today; we will review these results and adjust treatment if needed. Given your higher risk of infection due to cancer treatment, monitor your symptoms closely. Call immediately if you develop a high fever that does not come down with medication, a worsening cough with shortness of breath or wheezing, severe headache, nausea, vomiting, diarrhea, or confusion. If your symptoms do not show noticeable improvement in about one week, please return for further evaluation. documented in this encounterMer[facility]05-12-2025 NoteHNO ID: [id number] Author: GIRISH LEMOS MD Service: ? Author Type: Physician Type: Progress Notes Filed: 01/26/2025 13:43 Note Text: Chief Complaint Patient presents with: Cough: Non-productive Throat Problem: Hoarse and sore sinus congestion with occasional green mucus Perspiration Recording using ambient Identropy software for draft documentation of the visit was discussed with the patient/authorized home furnishings 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 Patient/authorized home furnishings sales representative agreed to proceed HPI Betsy Rodrigez is a 69 year old female who presents here today for Above Complaints.. Upper Respiratory Symptoms: - Acute onset of cough, rhinorrhea, and dysphonia began this morning. - Rhinorrhea varies in color from green to clear yellow. - Cough is non-productive; denies dyspnea, wheezing, chest pain, or chest congestion. - Slight headache and mild sore throat; denies ear pain or fullness. - Denies myalgias, but reports feeling more fatigued and run down. - Denies anosmia, ageusia, nausea, emesis, diarrhea, urinary symptoms, arthralgias, or rash. - No known exposure to COVID-19, influenza, or RSV. - Sister had a sinus infection approximately 2 weeks ago. - Has not taken any OTC medications for symptoms. - Chemotherapy was canceled this week due to illness; rescheduled for next Sunday. Past medical history, appointments, medications, allergies reviewed. Previous Medical History PAST MEDICAL HISTORY Diagnosis Date Anxiety with depression Chronic back pain Chronic kidney disease (CKD), stage III (moderate) (HCC) Colon polyp tubular adenoma [address] 07/16 to 08/17 DDD (degenerative disc disease), lumbar seeing Dr. Johnson Dysphagia Dr. 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 Fernandez Previous Surgical History PAST SURGICAL HISTORY Procedure Laterality Date APPENDECTOMY 1966 BREAST LUMPECTOMY HX Bilateral BREAST RECONSTRUCTION Right SECTION HX 1974, 1976 CHOLECYSTECTOMY 2016 COLONOSCOPY 2016 repeat in 3 years, Dr. Stiles COLONOSCOPY 03/28/2018 LYSIS OF ADHESIONS 1979 PAST SURGICAL HISTORY OF 1981 tubal reconstruction PAST SURGICAL HISTORY OF 2013 back surgery, microdiscectomy? PAST SURGICAL HISTORY OF Bilateral vericose vein stripping PAST SURGICAL HISTORY OF Bilateral heel spurs PAST SURGICAL HISTORY OF Bilateral surgery for epicondylitis PAST SURGICAL HISTORY OF cyst removal from eyelids TONSILLECTOMY HX 1958 Family History FAMILY HISTORY Problem Relation Age of Onset Cancer Mother lung Hypertension Mother Cancer Father lung No Known Problems Sister Cancer Brother lung No Known Problems Brother No Known Problems Brother Stroke Maternal Grandmother or [place], patient unsure Coronary Artery Disease Maternal Grandfather Alcohol abuse Paternal Grandfather Patient Allergies ALLERGIES Allergen Reactions Meagan Inhibitors Rash Codeine Vomiting, Other: See Comments Headache Remeron [Mirtazapin* Other: See Comments Fatigue Jishqlu-Ytl-Avr Red* Myalgia Michie Unknown Zetia [Ezetimibe] Myalgia Current Medications Current Outpatient Medications on File Prior to Visit Medication Sig oxyCODONE IR (ROXICODONE) 10 mg tab Take 10 mg by mouth four times a day as needed for pain. losartan (COZAAR) 50 mg tablet Take 0.5 tablets by mouth once daily. potassium chloride (K-TAB) 10 mEq tablet Take two tablets daily ondansetron orally disintegrating (ZOFRAN ODT) 4 mg disintegrating tablet Take 1 tablet by mouth every 6 hours as needed for nausea/vomiting. fluticasone (FLONASE) 50 mcg/actuation nasal spray Use 2 Sprays in each nostril once daily. Rinse mouth after use. levothyroxine (SYNTHROID) 25 mcg tablet Take 1 tablet by mouth once daily. NEXLETOL 180 mg tablet once daily. calcium carbonate (CALCIUM 500 ORAL) Take 1,000 mg by mouth once daily. HYDROcodone-acetaminophen (NORCO) 5-325 mg per tablet Take 1 tablet by mouth every 8 hours as needed for pain. mv,jaci,iron,mn/folic acid/chol (KCYL-QGJH-CSPHV, PABA, ORAL) Take 1 tablet by mouth once daily. Minoxidil 2 % external solution Apply 1 mL to affected area twice daily. albuterol (PROVENTIL) 2.5 mg /3 mL (0.083 %) nebulizer solution Use 3 mL via nebulizer every 4 hours as needed for Wheezing/Shortness of Breath. Use over 5-15minutes. Omeprazole 40 mg capsule Take 1 capsule by mouth twice daily. gabapentin (NEURONTIN) 400 mg capsule Take 400 mg by mouth three times a day. No current facility-administe (more content not included)...[facility]05-12-2025 History of Present illness Narrative* Girish Lemos MD - 01/26/2025 1:06 PM EDT Chief Complaint Patient presents with: Cough: Non-productive Throat Problem: Hoarse and sore sinus congestion with occasional green mucus Perspiration Recording using Infinite Z software for draft documentation of the visit was discussed with the patient/authorized home furnishings 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 Patient/authorized home furnishings sales representative agreed to proceed HPI Betsy Rodrigez is a 69 year old female who presents here today for Above Complaints.. Upper Respiratory Symptoms: - Acute onset of cough, rhinorrhea, and dysphonia began this morning. - Rhinorrhea varies in color from green to clear yellow. - Cough is non-productive; denies dyspnea, wheezing, chest pain, or chest congestion. - Slight headache and mild sore throat; denies ear pain or fullness. - Denies myalgias, but reports feeling more fatigued and run down. - Denies anosmia, ageusia, nausea, emesis, diarrhea, urinary symptoms, arthralgias, or rash. - No known exposure to COVID-19, influenza, or RSV. - Sister had a sinus infection approximately 2 weeks ago. - Has not taken any OTC medications for symptoms. - Chemotherapy was canceled this week due to illness; rescheduled for next Sunday. Past medical history, appointments, medications, allergies reviewed. Previous Medical History PAST MEDICAL HISTORY Diagnosis Date Anxiety with depression Chronic back pain Chronic kidney disease (CKD), stage III (moderate) (HCC) Colon polyp tubular adenoma [address] 07/16 to 08/17 DDD (degenerative disc disease), lumbar seeing Dr. Johnson Dysphagia Dr. 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 Fernandez Previous Surgical History PAST SURGICAL HISTORY Procedure Laterality Date APPENDECTOMY 1967 BREAST LUMPECTOMY HX Bilateral BREAST RECONSTRUCTION Right SECTION HX 1974, 1976 CHOLECYSTECTOMY 2016 COLONOSCOPY 2016 repeat in 3 years, Dr. Stiles COLONOSCOPY 03/28/2018 LYSIS OF ADHESIONS 1979 PAST SURGICAL HISTORY OF 1982 tubal reconstruction PAST SURGICAL HISTORY OF 2014 back surgery, microdiscectomy? PAST SURGICAL HISTORY OF Bilateral vericose vein stripping PAST SURGICAL HISTORY OF Bilateral heel spurs PAST SURGICAL HISTORY OF Bilateral surgery for epicondylitis PAST SURGICAL HISTORY OF cyst removal from eyelids TONSILLECTOMY HX 1958 Family History FAMILY HISTORY Problem Relation Age of Onset Cancer Mother lung Hypertension Mother Cancer Father lung No Known Problems Sister Cancer Brother lung No Known Problems Brother No Known Problems Brother Stroke Maternal Grandmother or [place], patient unsure Coronary Artery Disease Maternal Grandfather Alcohol abuse Paternal Grandfather Patient Allergies ALLERGIES Allergen Reactions Meagan Inhibitors Rash Codeine Vomiting, Other: See Comments Headache Remeron [Mirtazapin* Other: See Comments Fatigue Uvfyjbk-Xiw-Rjx Red* Myalgia Michie Unknown Zetia [Ezetimibe] Myalgia Current Medications Current Outpatient Medications on File Prior to Visit Medication Sig oxyCODONE IR (ROXICODONE) 10 mg tab Take 10 mg by mouth four times a day as needed for pain. losartan (COZAAR) 50 mg tablet Take 0.5 tablets by mouth once daily. potassium chloride (K-TAB) 10 mEq tablet Take two tablets daily ondansetron orally disintegrating (ZOFRAN ODT) 4 mg disintegrating tablet Take 1 tablet by mouth every 6 hours as needed for nausea/vomiting. fluticasone (FLONASE) 50 mcg/actuation nasal spray Use 2 Sprays in each nostril once daily. Rinse mouth after use. levothyroxine (SYNTHROID) 25 mcg tablet Take 1 tablet by mouth once daily. NEXLETOL 180 mg tablet once daily. calcium carbonate (CALCIUM 500 ORAL) Take 1,000 mg by mouth once daily. HYDROcodone-acetaminophen (NORCO) 5-325 mg per tablet Take 1 tablet by mouth every 8 hours as needed for pain. mv,jaci,iron,mn/folic acid/chol (YYLK-AVJF-HFNES, PABA, ORAL) Take 1 tablet by mouth once daily. Minoxidil 2 % external solution Apply 1 mL to affected area twice daily. albuterol (PROVENTIL) 2.5 mg /3 mL (0.083 %) nebulizer solution Use 3 mL via nebulizer every 4 hours as needed for Wheezing/Shortness of Breath. Use over 5-15minutes. Omeprazole 40 mg capsule Take 1 capsule by mouth twice daily. gabapentin (NEURONTIN) 400 mg capsule Take 400 mg by mouth three times a day. No current facility-administered medications on file prior to visit. Social History Social History Tobacco Use Smoking status: Former Current packs/day: 0.00 Average packs/day: 1 pack/day for 49.0 years (49.0 ttl pk-yrs) Types: Cigarettes Start date: 08/14/1967 Quit date: 08/14/2016 Years since quittin.4 Smokeless tobacco: Never Vaping Use Vaping status: Never Used Substance Use Topics Alcohol use: No Drug use: No Review of Symptoms REVIEW OF SYSTEMS See HPI EXAM: BP 116/66 Pulse 80 Temp 37.4 C (99.3 F) Resp 16 Wt 64 kg (141 lb 3.2 oz) SpO2 95% BMI 24.71 kg/m General Appearance: Well appearing, alert, in no acute distress, well-hydrated, well nourished.. Skin: Skin color, texture, turgor normal, no suspicious rashes or lesions. Head: Normocephalic, no masses, lesions, tenderness or abnormalities. Eyes: Anicteric sclera. Pupils are equally round and reactive to light. Extraocular movements are intact. . Ears: External ears normal, canals clear. Nose/Sinuses: Nares normal, septum midline, mucosa normal, no drainage or sinus tenderness. Oropharynx: Lips, mucosa, and tongue normal, teeth and gums normal, oropharynx normal. Neck: Supple, no adenopathy; thyroid symmetric, normal size, no bruits. Lungs: Lungs clear to auscultation. No wheezing, rhonchi, rales.. Heart: RRR without murmur, gallop, or rubs. No ectopy. Abdomen: Normal abdominal exam, Abdomen soft, non-tender. Bowel sounds normal. No masses, organomegaly. Health Maintenance List Mammogram Screening due on 07/16/2020 Colorectal Cancer Screening due on 03/28/2023 Covid-19 Vaccine() due on 05/18/2024 Advance Directive Discussion Never done Serum Creatinine due on 10/16/2025 Annual PCP Team Chronic Disease Visit due on 01/13/2026 BP Controlled (<130/80) due on 01/13/2026 Diabetes Screening due on 10/16/2027 Lipid Screening due on 02/21/2028 RSV Vaccine(1 - 1-dose 75+ series) due on 2029 Bone Density Screening Completed Influenza Vaccine Completed Hepatitis C Screening Completed Pneumococcal Vaccine: 50+ Completed DTaP,Tdap,Td Vaccine Discontinued Shingrix Vaccine Discontinued 1. Viral URI with cough (J06.9) - Symptoms include cough, nasal congestion, rhinorrhea with variable discharge, mild headache, slight sore throat, and night sweats. No significant sinus tenderness, no chest pain, chest congestion, or dyspnea. Lungs auscultated clear bilaterally. - Differential diagnosis includes COVID-19, influenza, and RSV. - Ordered COVID-19, influenza, and RSV swabs. - Ordered chest X-ray to rule out early pneumonia. - Prescribed Tessalon Perles for cough management; advised use of uruk-wfj-epuqtlf cough drops or Delsym. - Recommended tea with honey, warm salt water gargles, and jzky-dad-hyxwleq Chloraseptic sprays or lozenges for sore throat. - Advised increased fluid intake, rest, continued mask-wearing, and hand hygiene. - Instructed to monitor for worsening symptoms such as high fever, severe cough, or increased sinuspressure and to report immediately if these occur. - If COVID-19 test is positive, will initiate treatment with Lagevrio. - Follow-up as needed; return if symptoms do not improve within a week. 2. Immunocompromised state (HCC) (D84.9) - Patient is currently undergoing chemotherapy, which was postponed due to current illness. - Patient is at higher risk for infections; emphasized the importance of monitoring for severe symptoms and seeking immediate medical attention if necessary. - Coordinated care with the cancer center; informed them of the current evaluation and pending testresults. - Next chemotherapy session rescheduled for next Sunday, contingent on recovery from current illness. [facility] NoteHNO ID: [id number] Author: GIRISH LEMOS MD Service: ? Author Type: Physician Type: Progress Notes Filed: 01/13/2025 10:35 Note Text: Chief Complaint Patient presents with: Hospital F/U [facility] Betsy Rodrigez is a 69 year old female who presents here today for Hospital discharge follow up. Patient admitted to [facility] from 01/09 to 01/10 for complaint of sternal chest pain which started while driving. Workup for ACS in the hospital was negative, normal echo, and was diagnosed with musculoskeletal etiology. Did find some congestion and edema on CXR and was started on Lasix 20 mg daily PRN leg swelling/dyspnea on discharge. Also noted some leukocytosis likely 2/2 steroid use and Neupogen for history of lung cancer with mets to liver. Since discharge, patient has not had any recurrent chest pain. On gabapentin and oxycodone for pain for her small cell lung cancer with mets to liver and bone. Has not needed lasix yet and has not picked up from pharmacy. Denies fever/chills, chest pain, SOB, LE edema, orthopnea. Eating small meals throughout the day due to lack of appetite. Taking Zofran PRN for nausea. Denies vomiting or diarrhea. Weight down almost 40 lbs in the last 6 months. Patient has follow up with oncology in about 2 weeks and thinks she will be getting her last dose of this round of chemo. Plans to get CT chest and abdomen after completed. Patient denies feeling depressed or anxious with this new diagnosis. Does not want referral to counseling at this time. BP borderline low today on 50 mg losartan daily. Gets lightheaded for a few seconds if she stands up quickly. Not checking BP at home. Would like to try lower dosage. Past medical history, appointments, medications, allergies reviewed. Previous Medical History PAST MEDICAL HISTORY Diagnosis Date Anxiety with depression Chronic back pain Chronic kidney disease (CKD), stage III (moderate) (HCC) Colon polyp tubular adenoma [address] 07/16 to 08/17 DDD (degenerative disc disease), lumbar seeing Dr. Johnson Dysphagia Dr. 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 Fernandez Previous Surgical History PAST SURGICAL HISTORY Procedure Laterality Date APPENDECTOMY 1966 BREAST LUMPECTOMY HX Bilateral BREAST RECONSTRUCTION Right SECTION HX 1973, 1975 CHOLECYSTECTOMY 2016 COLONOSCOPY 2016 repeat in 3 years, Dr. Stiles COLONOSCOPY 03/28/2018 LYSIS OF ADHESIONS 1978 PAST SURGICAL HISTORY OF 1981 tubal reconstruction PAST SURGICAL HISTORY OF 2013 back surgery, microdiscectomy? PAST SURGICAL HISTORY OF Bilateral vericose vein stripping PAST SURGICAL HISTORY OF Bilateral heel spurs PAST SURGICAL HISTORY OF Bilateral surgery for epicondylitis PAST SURGICAL HISTORY OF cyst removal from eyelids TONSILLECTOMY HX 1958 Family History FAMILY HISTORY Problem Relation Age of Onset Cancer Mother lung Hypertension Mother Cancer Father lung No Known Problems Sister Cancer Brother lung No Known Problems Brother No Known Problems Brother Stroke Maternal Grandmother or [place], patient unsure Coronary Artery Disease Maternal Grandfather Alcohol abuse Paternal Grandfather Patient Allergies ALLERGIES Allergen Reactions Meagan Inhibitors Rash Codeine Vomiting, Other: See Comments Headache Remeron [Mirtazapin* Other: See Comments Fatigue Xjvvgyf-Ljr-Mgg Red* Myalgia Michie Unknown Zetia [Ezetimibe] Myalgia Current Medications Current Outpatient Medications on File Prior to Visit Medication Sig potassium chloride (K-TAB) 10 mEq tablet Take two tablets daily ondansetron orally disintegrating (ZOFRAN ODT) 4 mg disintegrating tablet Take 1 tablet by mouth every 6 hours as needed for nausea/vomiting. losartan (COZAAR) 50 mg tablet Take 1 tablet by mouth once daily. fluticasone (FLONASE) 50 mcg/actuation nasal spray Use 2 Sprays in each nostril once daily. Rinse mouth after use. levothyroxine (SYNTHROID) 25 mcg tablet Take 1 tablet by mouth once daily. NEXLETOL 180 mg tablet once daily. (Patient not taking: Reported on 11/05/2024) calcium carbonate (CALCIUM 500 ORAL) Take 1,000 mg by mouth once daily. HYDROcodone-acetaminophen (NORCO) 5-325 mg per tablet Take 1 tablet by mouth every 8 hours as needed for pain. mv,jaci,iron,mn/folic acid/chol (QISB-SGHJ-CPTBH, PABA, ORAL) Take 1 tablet by mouth once daily. (Patient not taking: Reported on 08/22/2022) Minoxidil 2 % external solution Apply 1 mL to affected area twice daily. albuterol (PROVENTIL) 2.5 (more content not included)...[facility]04-29-[facility]25 History of Present illness Narrative* Girish Lemos MD - 01/13/2025 9:08 AM EDT Chief Complaint Patient presents with: Hospital F/U [facility] Betsy Rodrigez is a 69 year old female who presents here today for Hospital discharge follow up. Patient admitted to [facility] from 01/09 to 01/10 for complaint of sternal chest pain which started while driving. Workup for ACS in the hospital was negative, normal echo, and was diagnosed with musculoskeletal etiology. Did find some congestion and edema on CXR and was started on Lasix 20 mg daily PRN leg swelling/dyspnea on discharge. Also noted some leukocytosis likely 2/2 steroid use and Neupogen for history of lung cancer with mets to liver. Since discharge, patient has not had any recurrent chest pain. On gabapentin and oxycodone for painfor her small cell lung cancer with mets to liver and bone. Has not needed lasix yet and has not picked up from pharmacy. Denies fever/chills, chest pain, SOB, LE edema, orthopnea. Eating small meals throughout the day due to lack of appetite. Taking Zofran PRN for nausea. Deniesvomiting or diarrhea. Weight down almost 40 lbs in the last 6 months. Patient has follow up with oncology in about 2 weeks and thinks she will be getting her last dose of this round of chemo. Plans to get CT chest and abdomen after completed. Patient denies feeling depressed or anxious with this new diagnosis. Does not want referral to counseling at this time. BP borderline low today on 50 mg losartan daily. Gets lightheaded for a few seconds if she stands up quickly. Not checking BP at home. Would like to try lower dosage. Past medical history, appointments, medications, allergies reviewed. Previous Medical History PAST MEDICAL HISTORY Diagnosis Date Anxiety with depression Chronic back pain Chronic kidney disease (CKD), stage III (moderate) (HCC) Colon polyp tubular adenoma [address] 07/16 to 08/17 DDD (degenerative disc disease), lumbar seeing Dr. Johnson Dysphagia Dr. 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 Fernandez Previous Surgical History PAST SURGICAL HISTORY Procedure Laterality Date APPENDECTOMY 1966 BREAST LUMPECTOMY HX Bilateral BREAST RECONSTRUCTION Right SECTION HX 1973, 1975 CHOLECYSTECTOMY 2016 COLONOSCOPY 2016 repeat in 3 years, Dr. Stiles COLONOSCOPY 03/28/2018 LYSIS OF ADHESIONS 1979 PAST SURGICAL HISTORY OF 1981 tubal reconstruction PAST SURGICAL HISTORY OF 2013 back surgery, microdiscectomy? PAST SURGICAL HISTORY OF Bilateral vericose vein stripping PAST SURGICAL HISTORY OF Bilateral heel spurs PAST SURGICAL HISTORY OF Bilateral surgery for epicondylitis PAST SURGICAL HISTORY OF cyst removal from eyelids TONSILLECTOMY HX 1957 Family History FAMILY HISTORY Problem Relation Age of Onset Cancer Mother lung Hypertension Mother Cancer Father lung No Known Problems Sister Cancer Brother lung No Known Problems Brother No Known Problems Brother Stroke Maternal Grandmother or [place], patient unsure Coronary Artery Disease Maternal Grandfather Alcohol abuse Paternal Grandfather Patient Allergies ALLERGIES Allergen Reactions Meagan Inhibitors Rash Codeine Vomiting, Other: See Comments Headache Remeron [Mirtazapin* Other: See Comments Fatigue Ijardvx-Slm-Ihw Red* Myalgia Michie Unknown Zetia [Ezetimibe] Myalgia Current Medications Current Outpatient Medications on File Prior to Visit Medication Sig potassium chloride (K-TAB) 10 mEq tablet Take two tablets daily ondansetron orally disintegrating (ZOFRAN ODT) 4 mg disintegrating tablet Take 1 tablet by mouth every 6 hours as needed for nausea/vomiting. losartan (COZAAR) 50 mg tablet Take 1 tablet by mouth once daily. fluticasone (FLONASE) 50 mcg/actuation nasal spray Use 2 Sprays in each nostril once daily. Rinse mouth after use. levothyroxine (SYNTHROID) 25 mcg tablet Take 1 tablet by mouth once daily. NEXLETOL 180 mg tablet once daily. (Patient not taking: Reported on 11/05/2024) calcium carbonate (CALCIUM 500 ORAL) Take 1,000 mg by mouth once daily. HYDROcodone-acetaminophen (NORCO) 5-325 mg per tablet Take 1 tablet by mouth every 8 hours as needed for pain. mv,jaci,iron,mn/folic acid/chol (CMNE-RVAI-EBGLT, PABA, ORAL) Take 1 tablet by mouth once daily. (Patient not taking: Reported on 08/22/2022) Minoxidil 2 % external solution Apply 1 mL to affected area twice daily. albuterol (PROVENTIL) 2.5 mg /3 mL (0.083 %) nebulizer solution Use 3 mL via nebulizer every 4 hours as needed for Wheezing/Shortness of Breath. Use over 5-15minutes. Omeprazole 40 mg capsule Take 1 capsule by mouth twice daily. gabapentin (NEURONTIN) 400 mg capsule Take 400 mg by mouth three times a day. No current facility-administered medications on file prior to visit. Social History Social History Tobacco Use Smoking status: Former Current packs/day: 0.00 Average packs/day: 1 pack/day for 49.0 years (49.0 ttl pk-yrs) Types: Cigarettes Start date: 08/14/1967 Quit date: 08/14/2016 Years since quittin.4 Smokeless tobacco: Never Vaping Use Vaping status: Never Used Substance Use Topics Alcohol use: No Drug use: No Review of Symptoms REVIEW OF SYSTEMS See HPI EXAM: BP 104/60 Pulse 72 Resp 16 Wt 62.1 kg (137 lb) SpO2 98% BMI 23.97 kg/m General Appearance: Thin appearing, alert, in no acute distress. Skin: Skin color, texture, turgor normal, no suspicious rashes or lesions. Lungs: Lungs clear to auscultation. No wheezing, rhonchi, rales.. Heart: RRR without murmur, gallop, or rubs. No ectopy. Extremities: No deformities, edema, skin discoloration, clubbing or cyanosis. Good capillary refill. Health Maintenance List Mammogram Screening due on 07/16/2020 Colorectal Cancer Screening due on 03/28/2023 Covid-19 Vaccine( season) due on 05/18/2024 Advance Directive Discussion Never done Serum Creatinine due on 10/16/2025 Lung Cancer Screening due on 10/30/2025 Annual PCP Team Chronic Disease Visit due on 11/12/2025 BP Controlled (<130/80) due on 11/12/2025 Diabetes Screening due on 10/16/2027 Lipid Screening due on 02/21/2028 RSV Vaccine(1 - 1-dose 75+ series) due on 2029 Bone Density Screening Completed Influenza Vaccine Completed Hepatitis C Screening Completed Pneumococcal Vaccine: 50+ Completed DTaP,Tdap,Td Vaccine Discontinued Shingrix Vaccine Discontinued ASSESSMENT/PLAN: 1. Chest pain, unspecified type - ICD9: 786.50, ICD10: R07.9 (primary diagnosis) Likely musculoskeletal chest pain which has resolved. Workup for cardiac etiology was negative. Patient is on gabapentin and oxycodone for pain related to her lung cancer with mets. No sign of fluid overload today. Can take lasix PRN for SOB or leg swelling and should call the office once she starts taking it so we can monitor her progress. Keep f/u with oncology in next 2-3 weeks. Will f/u progress of her chemotherapy. 2. Small cell carcinoma of lung, unspecified laterality, unspecified part of lung (HCC) - ICD9: 162.9, ICD10: C34.[address] Fernandez' office. Will f/u recommendations and progress. Advised to call if she needs anything from our office. Continue with palliative for pain control. 3. 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) - ICD9: 198.5, ICD10: C79.51 See above 4. Metastasis to liver (HCC) - ICD9: 197.7, ICD10: C78.7 See above 5. 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 6. Essential hypertension - ICD9: 401.9, ICD10: I10 BP low today. - Decrease losartan - Recommend home blood pressure monitoring, to bring results to next visit - Encouraged sodium restriction, DASH or Mediterranean diet - Recommend regular aerobic exercise - Recheck BP at f/u with oncology as scheduled. - LOSARTAN 50 MG TABLET 7. Anxiety with depression - ICD9: 300.4, ICD10: F41.8 Denies symptoms without medication or counseling. Will monitor. 8. Weight loss - ICD9: 783.21, ICD10: R63.4 2/2 cancer. Continue zofran PRN for nausea. Encouraged regular meals. F/u with palliative. I spent a total of 40 minutes on the date of the service which included preparing to see the patient, [id number] patient care, completing clinical documentation, obtaining and/or reviewing separately obtained history, performing a medically appropriate examination, counseling and educating the pat ient/family/caregiver, and ordering medications, tests, or procedures. Girish Lemos MD documented in [facility] Discharge summary [facility] Medical Records Department [address] [place] [address] Discharge Summary 01/10/25 1428 MR#: [id number] Acct: [id number] Name: BETSY RODRIGEZ Rep #:[id number] 31 : 1955 69 From: Jassi Schneider PCP: Dr. Fabricio Lemos MD Status :ADM FARIBA Location: [facility]U [place] [address] Providers Date of Admission: 01/09/25 Date of Discharge: 01/10/25 Primary Care Physician: Dr. Fabricio Lemos MD Reason For Visit: EPISODE OF CHEST PAIN Diagnosis Discharge Diagnosis (1) Chest pain: Status: Acute Code(s): R07.9 - Chest pain, unspecified Plan 69-year-old female was admitted with sternal chest pain started while driving. History of lung cancer, received chemotherapy yesterday and Neupogen patient states chest pain is now gone. Complain of nausea and shortness of breath. On 2 L of home oxygen as needed # Atypical chest pain, exact etiology unclear: Patient is being admitted in PCU. Chest x-ray image is reviewed and shows hilar enlarged, interstitial and patchyairspace disease - Initial troponin 12 with a repeat of 19 and third on 13. proBNP 3119. ACS ruled out - Chest x-ray did query congestion and edema - Lasix was given and patient currently euvolemic. 2D echo was done on 01/11/2020 Interpretation Summary The LV systolic function is normal. EF is 65 %. The global longitudinal strain = -24.6 % (normal). Currently patient is euvolemic. Prescription for furosemide 20 mg daily as needed for leg swelling/SOB/dyspnea given. Follow-up with PCP 2D echo in March 2020 shows EF 65% with no evidence of diastolic dysfunction. NoRWMA. No Doppler evidence for ASD. # mild hyperglycemia - Patient's BMP glucose only 64. Repleted with 116, 75. Resolved # MildProbably due to hypoxia mild pulmonary edema due to acute on chronic HFpEF -Patient has a history of using oxygen as needed, did drop to 88% #leukocytosis: Admitting physician discussed with Dr. Fernandez regarding patient's elevated white blood cell count. Most likely due to steroid which causes demargination. Patient had Neupogen but usually continues leukocytosis after 3 to 4 days # Suspected lung cancer with metastasis -Follows Dr. Fernandez on outpatient basis -Her oncologist was contacted by ED physician Follow-up Dr. Fernandez #GERD -Continue PPI #Hypertension - Blood pressure 112/49 in the ED. On low-dose losartan #ARMANDO -Continue home CPAP #Hypothyroidism -Continue Synthroid #DVT ppx: Lovenox subcu Discharge medication reconciliation done. Discharge follow-up instructions completed. Discharge process discussed with the patient and all questions wereanswered to patient's satisfaction. Follow with PCP in 1 to 2 weeks Total time spent, exact 35 minutes on discharge meds reconciliation, examination, coordination of care with nurses and ancillary staff, review of imaging and blood test and discussion with the patient on follow-up instructions. Medications at Discharge Home Medications levothyroxine 25 mcg tablet 25 mcg PO DAILY thyroid 11/03/17 gabapentin 400 mg capsule 400 mg PO TID nerve pain 07/16/20 Disability Placard #1 ea 09/15/20 potassium citrate 10 mEq (1,080 mg) tablet,extended release 20 meq PO DAILY potassium 01/26/22 albuterol sulfate 90 mcg/actuation aerosol inhaler 2 puff inhalation Q4H PRN shortness of breath orwheezing 06/13/23 fluticasone propionate 50 mcg/actuation nasal spray,suspension (Flonase Allergy Relief) 1 spray intranasal DAILY PRN nasal congestion 05/28/24 cholecalciferol (vitamin D3) 25 mcg (1,000 unit) capsule (Vitamin D3) 25 mcg PO DAILY vitamin 11/12/24 losartan 25 mg tablet 25 mg PO DAILY blood pressure 11/12/24 ondansetron HCl 8 mg tablet 8 mg PO Q8H PRN nausea and vomiting 11/24/24 docusate sodium 100 mg capsule 100 mg PO BID PRN constipation 12/11/24 omeprazole 40 mg capsule,delayed release 40 mg PO BID gerd 12/11/24 lidocaine-prilocaine 2.5 %-2.5 % topical cream 1 applic topical ONCE PRN port access 30 days #30 grams 12/15/24 prochlorperazine maleate 10 mg tablet 10 mg PO Q6H PRN nausea and vomiting #30 tabs 12/15/24 mirtazapine 15 mg tablet 15 mg PO QHS sleep #30 tabs 12/29/24 calcium carbonate (Calcium 600) 600 mg PO DAILY suppliment 01/09/25 oxycodone 10 mg tablet 10 mg PO Q4H PRN pain 01/09/25 furosemide 20 mg tablet 20 mg PO DAILY PRN leg swelling/SOB #30 tabs 01/10/25 Physical Exam Narrative Seen and examined. The chest pain lasted for about 5 minutes and has resolved. No acute issues after that. Physical exam Physical exam: General: Alert, Oriented x3, Cooperative HEENT: Atraumatic, PERRLA, EOMI, Normocephalic Oral: Oral mucosa moist no Gingival or Mucosal Lesions/ Ulcerations Neck: Supple, No JVD, Negative Carotid Bruits Chest wall/Lungs: Air entry diminished in bilateral lung bases. No crepitation/rhonchi Cardiovascular: Regular rate, Regular Rhythm, Normal S1, Normal S2, systolic murmur lungs Abdomen: Bowel Sounds Present, Soft, Non Tender, Non-Distended : No dysuria. No renal angle tenderness. No suprapubic tenderness. Extremities: No edema, Capillary Refill Less than 3 Seconds Skin: No rashes, No breakdown Musculoskeletal: No Tenderness to Palpation of Joints or Extremities Neurological: Cranial nerves II-XII grossly intact, DTR 2+/4. No acute focal neurological deficit. Psych/Mental Status: Normal Affect, Appropriate. Medical Records Data Medical Nutrition Assessment Dietitian: Malnutrition Criteria Met Start: 01/10/25 14:09 Freq: Status: Active Protocol: Document 01/10/25 14:09 RMA (Rec: 01/10/25 14:09 RMA [id number]) Nutrition Malnutrition Evidence of Yes Malnutrition Exists Malnutrition (severe Chronic ): Evidenced By Suboptimal Energy Intake (Severe),Weight Loss (Severe) Clinical Problem Chronic Disease or Condition Related Malnutrition Etiology severe protein-calorie malnutrition in the context of chronic disease related to inadequate energy intakeand increased energy expenditure Signs/Symptoms as evidenced by ~7% unintentional weight loss x 2 months and PO meeting less than 75% estimated nutrition needs x 2 months Status Active Problem Recommendation Dietitian Will liberalize diet to Regular to help optimize oral Recommendations/ intake given signs/symptoms of malnutrition. Changes Will add 120mL ensure plus HP 4 times per day w/ medpass. Weight / BMI Weight Weight: 145 lb 4.554 oz Body Mass Index (BMI) 25.7 ABG / Lab / Microbiology Data 01/10/25 05:20 01/10/25 05:20 Laboratory: Laboratory Results - last 24 hr 01/09/25 15:50: WBC 18.3 H, RBC 3.83 L, Hgb 11.5 L, Hct 34.6 L, MCV 90.3, MCH 30.0, MCHC 33.2, RDW Std Deviation 60.6 H, RDW Coeff of Brittanie 18.8 H, Plt Count 442, MPV 9.9, Immature Gran % (Auto) 1.800 H, Neut % (Auto) 93.2 H, Lymph % (Auto) 4.7 L, Roosevelt % (Auto) 0.2, Eos % (Auto) 0.0, Baso % (Auto) 0.1, Absolute Neuts (auto) 17.1 H, Absolute Lymphs (auto) 0.86, Nucleated RBC % 0, Platelet Estimate SLT INC, Sodium 141, Potassium 3.6, Chloride 107, Carbon Dioxide 20.1 L, Anion Gap 14, BUN 17, Creatinine 0.67 L, Estim Creat Clear Calc 61.24, Est GFR(MDRD) Non-Af 94, BUN/Creatinine Ratio 25.5 H, Glucose 64 L, Calcium 8.8, Troponin T High Sens 12 01/09/25 17:58: Troponin T Hi Sens 2 Hr 19 H, NT pro BNP II 3119 H 01/09/25 19:55: Troponin T Hi Sens 4Hr 13 01/10/25 01:21: POC Glucose 116 H 01/10/25 05:20: WBC 46.9 H*, RBC 3.47 L, Hgb 10.4 L, Hct 30.9 L, MCV 89.0, MCH 30.0, MCHC 33.7, RDWStd Deviation 59.4 H, RDW Coeff of Brittanie 18.6 H, Plt Count 419, MPV 9.8, Neut % (Auto) Not Reportable, Absolute Neuts (auto) 43.6 H, Absolute Lymphs (auto) 1.88, Total Counted 100, Neutrophils % (Manual) 92 H, Band Neutrophils % 1, Lymphocytes % (Manual) 4 L, Monocytes % (Manual) 1, Metamyelocytes % 2 H, Diff Path Review May foll, Platelet Estimate A, Sodium 142,Potassium 3.9, Chloride 104, Carbon Dioxide 26.7, Anion Gap 11, BUN 19, Creatinine 0.87, Estim Creat Clear Calc 54.90, Est GFR (MDRD) Non-Af 72, BUN/Creatinine Ratio 21.6 H, Glucose 77, Calcium 8.5, POC Glucose 75 Microbiology: Microbiology 01/09/25 05:20 Nasal Secretion SARS-CoV-2 Antigen (Rapid) - Final 01/09/25 20:30 Mucosa - Nasopharyngeal Respiratory Panel (PCR) - Final Radiography Diagnostic Testing: Radiology Impression Chest X-Ray 01/09/25 16:09 IMPRESSION: Interstitial and patchy airspace disease, may relate to congestion and edema. Reading Location: [facility] Echocardiogram 01/09/25 20:22 Interpretation Summary The LV systolic function is normal. EF is 65 %. The global longitudinal strain = -24.6 % (normal). Ordering Physician: Estrella Cabezas Referring Physician: Estrella Cabezas Performed By: Sesar Ferrera [facility] D/C Instructions Discharge Diet: No restrictions Weight Bearing Status: Weight bearing as tolerated Call your doctor if you observe: Fever of 101 or Higher, Coldness, Increased Pain, Numbness or Tingling, Change in Color, Inability to urinate, Inability to have a bowel movement, Shortness of breath, Dizziness, Fainting spells, Swellingin the ankles, Chest pain, Prolonged hiccupping, Increased palpitations (irregular heartbeat) and Calf discomfort DC O2, CPAP, BIPAP Needs Home O2 Discharge instructions: No When: IN 2 WEEKS Meaningful Use Info Meaningful Use Meaningful Use Diagnoses (Choose all that apply): CHF CHF MEAGAN/ARB ordered at discharge?: Yes Documented LVEF (%): 55 Ischemic Stroke Statin Dosing Therapy Reference: STATIN DOSE THERAPY REFERENCE: * Patients > 75 years receive moderate or high dose statin therapy. * Patients 75 years or YOUNGER should receive HIGH intensity statin dose unless contraindicated. You will be required to document reason for non-treatment if statin daily dose does not meet guidelines. HIGH DOSE STATIN THERAPY DAILY Atorvastatin > than or = to 40 mg Rosuvastatin > than or = to 20 mg Amlodipine + Atorvastatin > than or = to 2.5/40 mg Ezetimibe + Simvastatin 10/80 mg Simvastatin 80mg Discharge Plan Admission Admit Date/Time: 01/09/25 19:31 Primary Reason for Your Visit: Atypical chest pain, ACS ruled out. Probably musculoskeletal Attending Provider: Jassi Borden Primary Care Provider: Fabricio Lemos Consulting Providers: Estrella Cabezas Instructions Additional Instructions / Restrictions: Recommended CBC with differential after 1 week to see normalization of leukocytosis. Discharge Orders/Prescriptions Prescriptions: New furosemide 20 mg tablet 20 mg PO DAILY PRN (Reason: leg swelling/SOB) Qty: 30 0RF Continued (DME) Disability Placard See Rx Instructions .Route .MEDSUPPLY Qty: 1 0RF Rx Instructions: Expires 09/09/2025 albuterol sulfate 90 mcg/actuation HFA aerosol inhaler 2 puff inhalation Q4H PRN (Reason: shortness of breath or wheezing) ondansetron HCl 8 mg tablet 8 mg PO Q8H PRN (Reason: nausea and vomiting) mirtazapine 15 mg tablet 15 mg PO QHS Qty: 30 3RF levothyroxine 25 MCG tablet 25 mcg PO DAILY gabapentin 400 MG capsule 400 mg PO TID potassium citrate 10 mEq (1,080 mg) tablet extended release 20 meq PO DAILY Patient Comments: pt unsure if she takes this medication fluticasone propionate [Flonase Allergy Relief] 50 mcg/actuation spray,suspension 1 spray intranasal DAILY PRN (Reason: nasal congestion) Rx Instructions: administer into each nostril cholecalciferol (vitamin D3) [Vitamin D3] 25 mcg (1,000 unit) capsule 25 mcg PO DAILY losartan 25 mg tablet 25 mg PO DAILY omeprazole 40 MG capsule,delayed release(DR/EC) 40 mg PO BID docusate sodium 100 mg Capsule 100 mg PO BID PRN (Reason: constipation) Rx Instructions: Hold for diarrhea oxycodone 10 mg tablet 10 mg PO Q4H PRN (Reason: pain) calcium carbonate [Calcium 600] 600 mg calcium (1,500 mg) tablet 600 mg PO DAILY lidocaine-prilocaine 2.5-2.5 % cream 1 applic topical ONCE PRN (Reason: port access) 30 Days Qty: 30 2RF prochlorperazine maleate 10 mg tablet 10 mg PO Q6H PRN (Reason: nausea and vomiting) Qty: 30 2RF Referrals / Follow Up: Fabricio Lemos MD [Primary Care Provider] - Sherice Fernandez MD [Med Staff - Active Staff] - Within 1 Month Disposition Disposition (needs filled in before D/C Order can be placed): Home, Self Care Charges/Coding Visit Charges Inpatient E&M: 60645 Disch Hosp >30min 01/10/25 1439 Cosigner Signature (if applicable): CC: Dr. Fabricio Lemos MD; Dr. Jassi Borden MD~ Signed [facility]04-26-2025 Discharge summary [facility] Medical Records Department [address] [place] [address] Instructions for Home/Discharge Instructions 01/10/25 1425 MR#: [id number] Acct: [id number] Name: BETSY RODRIGEZ Rep #:[id number] : 1955 69 From: Jassi Schneider PCP: Dr. Fabricio Lemos MD Status :ADM FARIBA Discharge Instructions Diet Discharge Diet: No restrictions DC O2, CPAP, BIPAP needs Home O2 Discharge instructions: No Dressing / Incision Discharge Activity: Return to Normal Activity Weight Bearing Status: Weight bearing as tolerated Dressing / Incision Call your doctor if you observe: Fever of 101 or Higher, Coldness, Increased Pain, Numbness or Tingling, Change in Color, Inability to urinate, Inability to have a bowel movement, Shortness of breath, Dizziness, Fainting spells, Swellingin the ankles, Chest pain, Prolonged hiccupping, Increased palpitations (irregular heartbeat) and Calf discomfort Follow Up Care When: IN 2 WEEKS Test Results: Test results from this visit will be discussed in further detail at your follow- up appointment, if applicable. Discharge Plan Admission Admit Date/Time: 01/09/25 19:31 Primary Reason for Your Visit: Atypical chest pain, ACS ruled out. Probably musculoskeletal Attending Provider: Jassi Borden Primary Care Provider: Fabricio Lemos Consulting Providers: Estrella Cabezas Instructions Additional Instructions / Restrictions: Recommended CBC with differential after 1 week to see normalization of leukocytosis. Discharge Orders/Prescriptions Prescriptions: Continued (DME) Disability Placard See Rx Instructions .Route .MEDSUPPLY Qty: 1 0RF Rx Instructions: Expires 09/09/2025 albuterol sulfate 90 mcg/actuation HFA aerosol inhaler 2 puff inhalation Q4H PRN (Reason: shortness of breath or wheezing) ondansetron HCl 8 mg tablet 8 mg PO Q8H PRN (Reason: nausea and vomiting) mirtazapine 15 mg tablet 15 mg PO QHS Qty: 30 3RF levothyroxine 25 MCG tablet 25 mcg PO DAILY gabapentin 400 MG capsule 400 mg PO TID potassium citrate 10 mEq (1,080 mg) tablet extended release 20 meq PO DAILY Patient Comments: pt unsure if she takes this medication fluticasone propionate [Flonase Allergy Relief] 50 mcg/actuation spray,suspension 1 spray intranasal DAILY PRN (Reason: nasal congestion) Rx Instructions: administer into each nostril cholecalciferol (vitamin D3) [Vitamin D3] 25 mcg (1,000 unit) capsule 25 mcg PO DAILY losartan 25 mg tablet 25 mg PO DAILY omeprazole 40 MG capsule,delayed release(DR/EC) 40 mg PO BID docusate sodium 100 mg Capsule 100 mg PO BID PRN (Reason: constipation) Rx Instructions: Hold for diarrhea oxycodone 10 mg tablet 10 mg PO Q4H PRN (Reason: pain) calcium carbonate [Calcium 600] 600 mg calcium (1,500 mg) tablet 600 mg PO DAILY lidocaine-prilocaine 2.5-2.5 % cream 1 applic topical ONCE PRN (Reason: port access) 30 Days Qty: 30 2RF prochlorperazine maleate 10 mg tablet 10 mg PO Q6H PRN (Reason: nausea and vomiting) Qty: 30 2RF Referrals / Follow Up: Fabricio Lemos MD [Primary Care Provider] - Sherice Fernandez MD [Med Staff - Active Staff] - Within 1 Month Disposition Disposition (needs filled in before D/C Order can be placed): Home, Self Care 01/10/25 1428Jassi Borden MD CC: Dr. Fabricio Lemos MD; Dr. Estrella Cabezas MD ~ Signed [facility]04-26-[address] [facility]04-26-2025 Discharge summary Author Austin Mack [facility] Note Date/Time January 09, 2025 11: 20pm [facility] Medical Records Department [address] [place] [address] Emergency Department Summary 01/09/25 MR#: [id number] Acct: [id number] Name: BETSY RODRIGEZ Rep #:[id number] : 1955 69 From: Austin Mack MD PCP: Dr. Fabricio Lemos MD Status :ADM FARIBA Location: [address] History of Present Illness Chief Complaint: Chest Pain Narrative Narrative: 69-year-old female past medical history of what they suspect is lung carcinoma with metastasis to liver and bone presents with chest pain after her chemotherapy infusion and Neupogen injection. She and her son state that this is her third round of chemotherapy infusion. She usually gets that once every 3weeks. This was the third dose of her white blood cell booster as she calls it. She had not had a reaction to the first 2, but they state that approximately 15minutes after administration, on the way home she experienced 10 to 15 minutes of chest pain and pressure. She states she had nausea with it but no vomiting. She felt short of breath as well. No recent fevers or chills, no cough. She states her symptoms have resolved. She is unsure if she had a reaction to her white blood cell booster. 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 Small cell lung cancer Loss of hearing Wears glasses Wears dentures Post-menopausal Thyroid disease Arthritis High cholesterol DVT (deep venous thrombosis) Injury of back Migraine headache Syncope Difficulty chewing History of hiatal hernia History of ulceration History of diverticulitis Gastric reflux Former smoker Asthma CPAP (continuous positive airway pressure) dependence Leg cramps Shortness of breath on exertion History of pain when walking Hypertension Heart murmur History of echocardiogram History of stress test Cardiology follow-up encounter Bradycardia Chronic respiratory failure with hypoxia Smoking greater than 40 pack years ARMANDO (obstructive sleep apnea) Pulmonary hypertension Bronchiectasis History of staph infection HTN (hypertension) Hypoxia COVID-19 Home Medications ?Medication ?Instructions ?Recorded ?Last Taken ?Type levothyroxine 25 mcg tablet 25 mcg PO DAILY thyroid 01/09/25 History gabapentin 400 mg capsule 400 mg PO TID nerve pain 01/09/25 History Disability Placard #1 ea 09/15/20 Unknown Rx potassium citrate 10 mEq (1,080 20 meq PO DAILY potass ium 01/26/22 12/11/24 History mg) tablet,extended release albuterol sulfate 90 mcg/actuation 2 puff inhalation Q 4H PRN 06/13/23 Unknown History aerosol inhaler shortness of breath or wheez ing fluticasone propionate 50 1 spray intranasal DAILY PRN nasal 05/28/24 Unknown History mcg/actuation nasal congestion spray,suspension (Flonase Allergy Relief) cholecalciferol (vitamin D3) 25 25 mcg PO DAILY vitami n 11/12/24 01/09/25 His tory mcg (1,000 unit) capsule (Vitamin D3) losartan 25 mg tablet 25 mg PO DAILY blood pressur e 11/12/24 01/09/25 History ondansetron HCl 8 mg tablet 8 mg PO Q8H PRN nausea and vomiting 11/24/24 01/09/25 History docusate sodium 100 mg capsule 100 mg PO BID PRN const ipation 12/11/24 Unknown History omeprazole 40 mg capsule,delayed 40 mg PO BID gerd 01/09/25 History release lidocaine-prilocaine 2.5 %-2.5 % 1 applic topical ONCE PRN port 12/15/24 Unknown Rx topical cream access 30 days #30 grams prochlorperazine maleate 10 mg 10 mg PO Q6H PRN nausea and 12/15/24 01/07/25 Rx tablet vomiting #30 tabs mirtazapine 15 mg tablet 15 mg PO QHS #30 tabs 01/08/25 Rx calcium carbonate (Calcium 600) 600 mg PO DAILY 01/09/25 History oxycodone 10 mg tablet 10 mg PO Q4H PRN pain 01/09/25 History Allergy/AdvReac Type Severity Reaction Status Date / Time MEAGAN Inhibitors Allergy Rash Verified 01/09/25 15:36 codeine Allergy Vomiting Verified 01/09/25 15:36 walnut Allergy Food Verified 01/09/25 15:36 Allergy prednisone AdvReac Other Verified 01/09/25 15:36 [id number]-OmP Reductase AdvReac cramps Verified 01/09/25 15:36 Inhibitor (Sqfszus-Usn-Snz Reductase Inhibitor) Family History Mother Cancer Hx Lung CA. Father Cancer Hx Lung CA. Surgical History Hx of right cataract extraction Hx of left cataract extraction Hx of breast reconstruction Hx of foot surgery Hx of surgical amputation of finger Hx of elbow surgery History of carpal tunnel surgery Hx of vein stripping History of cholecystectomy History of back surgery History of eye surgery History of breast biopsy History of tubal ligation History of History of appendectomy History of tonsillectomy Social History household members: spouse Smoking Status: Former smoker quit date: 08/17/16 Tobacco: How many years used: 45 alcohol intake: never ROS ROS ED ROS Narrative Review of systems positive for midsternal chest pressure and discomfort associated with nausea and shortness of breath. No diaphoresis. No vomiting. No exacerbating or alleviating factors. Pain and pressure/discomfort lasted approximately 15 minutes but has since resolved. EXAM Physical Exam Narrative Exam Narrative: Afebrile. Vital signs noted. Nontoxic-appearing. Cardiovascular examination of is a regular rate and rhythm, no murmurs rubs or gallops appreciated. Lungs are clear to auscultation bilaterally. The abdomen is soft and nontender. Positive bowel sounds. No guarding or rebound. Neurological examination is nonfocal and nonlateralizing. No pedal edema. Const Vital Signs: 01/09/25 15:36 01/09/25 15:36 01/09/25 15:53 Temperature 98.5 F Temperature Source Oral Pulse Rate 90 87 Respiratory Rate 14 17 Respiratory Effort Blood Pressure 131/82 H 131/82 H Blood Pressure Mean 98 98 Pulse Ox 92 96 Oxygen Delivery Method Room Air Room Air Room Air Oxygen Flow Rate (L/min) 01/09/25 15:53 01/09/25 15:57 01/09/25 16:03 Temperature Temperature Source Pulse Rate 77 99 Respiratory Rate 19 H 18 Respiratory Effort Normal Non-Labored Blood Pressure Blood Pressure Mean Pulse Ox 94 90 Oxygen Delivery Method Oxygen Flow Rate (L/min) 01/09/25 16:05 01/09/25 16:15 01/09/25 16:30 Temperature 98.9 F Temperature Source Oral Pulse Rate 96 73 80 Respiratory Rate 12 18 23 H Respiratory Effort Blood Pressure 131/82 H 120/67 Blood Pressure Mean 98 82 Pulse Ox 93 96 96 Oxygen Delivery Method Room Air Oxygen Flow Rate (L/min) 01/09/25 16:45 01/09/25 16:58 01/09/25 17:00 Temperature 98.9 F Temperature Source Oral Pulse Rate 81 96 78 Respiratory Rate 25 H 24 H 21 H Respiratory Effort Blood Pressure 120/67 131/68 H Blood Pressure Mean 84 83 Pulse Ox 94 96 96 Oxygen Delivery Method Room Air Oxygen Flow Rate (L/min) 01/09/25 17:15 01/09/25 17:30 01/09/25 17:45 Temperature Temperature Source Pulse Rate 72 69 69 Respiratory Rate 15 22 H 22 H Respiratory Effort Blood Pressure 103/57 L Blood Pressure Mean 71 Pulse Ox 95 93 93 Oxygen Delivery Method Oxygen Flow Rate (L/min) 01/09/25 18:00 01/09/25 18:00 01/09/25 18:04 Temperature 99.1 F Temperature Source Oral Pulse Rate 69 Respiratory Rate 18 Respiratory Effort Blood Pressure 106/54 L 103/53 L Blood Pressure Mean 70 69 Pulse Ox 91 95 Oxygen Delivery Method Nasal Cannula Oxygen Flow Rate (L/min) 01/09/25 18:15 01/09/25 18:16 01/09/25 18:17 Temperature Temperature Source Pulse Rate 70 Respiratory Rate 23 H Respiratory Effort Blood Pressure Blood Pressure Mean Pulse Ox 88 88 94 Oxygen Delivery Method Room Air Nasal Cannula Oxygen Flow Rate (L/min) 2 01/09/25 18:30 01/09/25 18:45 01/09/25 19:00 Temperature Temperature Source Pulse Rate 71 74 76 Respiratory Rate 22 H 14 11 L Respiratory Effort Blood Pressure 112/49 L 118/65 Blood Pressure Mean 68 82 Pulse Ox 97 97 96 Oxygen Delivery Method Oxygen Flow Rate (L/min) 01/09/25 19:07 01/09/25 19:09 Temperature 98.8 F 98.8 F Temperature Source Oral Pulse Rate 76 76 Respiratory Rate 10 L 10 L Respiratory Effort Blood Pressure 112/49 L 112/49 L Blood Pressure Mean 70 70 Pulse Ox 96 96 Oxygen Delivery Method Nasal Cannula Oxygen Flow Rate (L/min) 2 MDM MDM MDM Narrative Medical decision making narrative: The differential diagnosis includes but not limited to medication side effect versus allergic reaction versus anaphylaxis versus chest pain of other etiology including ACS. I have very low suspicion for pulmonary embolism. Pulse ox 96% on room air without evidence of hypoxia. Her symptoms have resolved as well. Chest pain workup was pursued. Chest x-ray obtained and interpreted by myself independently in 1 view shows mild congestion, but no pneumothorax or discrete infiltrate. I do not feel antibiotics are indicated. EKG was obtained and interpreted by myself independently as normal sinus rhythm at 76 bpm without ectopy or acute ST changes. No STEMI. In review of her laboratory work she does have a leukocytosis of 18.3 with hemoglobin 11.5, hematocrit 34.6, platelet count 442. Sodium normal at 141 with potassium 3.6, BUN of 17 and creatinine 0.67. High-sensitivity troponin initially is 12 with repeat being 19. According to the guidelines, the delta troponin greater than 6indicates the need for observation/rule in for ACS. I discussed patient with Dr. Fernandez with oncology who agrees with observation/admission. I then discussed the patient with Dr. Estrella Cabezas for observation on PCU given her elevated troponins and chest pain. She would like a BNP added to look for fluidoverload. Additionally, patient has oxygen at home which she wears on occasion and she required it here as she had a pulse ox of 88% on room air. Currently she is pain-free. Disposition is assigned observation. Patient is in stable condition. History & Record Review Discussion w/independent historian: Patient and Family Lab Data Attestation: I reviewed the patient's lab results. Labs: Laboratory Results - last 24 hr 01/09/25 01/09/25 15:50 17:58 WBC 18.3 H RBC 3.83 L Hgb 11.5 L Hct 34.6 L MCV 90.3 MCH 30.0 MCHC 33.2 RDW Std Deviation 60.6 H RDW Coeff of Brittanie 18.8 H Plt Count 442 MPV 9.9 Immature Gran % (Auto) 1.800 H Neut % (Auto) 93.2 H Lymph % (Auto) 4.7 L Roosevelt % (Auto) 0.2 Eos % (Auto) 0.0 Baso % (Auto) 0.1 Absolute Neuts (auto) 17.1 H Absolute Lymphs (auto) 0.86 Nucleated RBC % 0 Platelet Estimate SLT INC Sodium 141 Potassium 3.6 Chloride 107 Carbon Dioxide 20.1 L Anion Gap 14 BUN 17 Creatinine 0.67 L Estim Creat Clear Calc 61.24 Est GFR (MDRD) Non-Af 94 BUN/Creatinine Ratio 25.5 H Glucose 64 L Calcium 8.8 Troponin T High Sens 12 Troponin T Hi Sens 2 Hr 19 H NT pro BNP II 3119 H Radiography Chest X-Ray - ED: 1 View, Read by ED Physician, Read by Radiologist and CHF Diagnostic Testing: Clinical Impression(s) from Imaging Studies Chest X-Ray 01/09/25 16:09 IMPRESSION: Interstitial and patchy airspace disease, may relate to congestion and edema. Reading Location: [facility] Discharge Plan Dx/Rx/DC Orders Clinical Impression: Chest pain, Shortness of breath, Small cell lung cancer, Elevated troponin Disposition Disposition: Acute Care Hospital [facility] Discharge Date/Time: 01/09/25 20:00 What to do if you have Problems For any increased pain, shortness of breath, bleeding, nausea or vomiting, chestpain, or any unexpected problems, contact your Primary Care Provider. Call [facility] ([phone]) or report to the closest Emergency Room. Call 911 if necessary. 01/09/252319 <Electronically signed by Austin Mack MD> Cosigner Signature (if applicable): CC: Dr. Fabricio Lemos MD ~ Signed [facility] Work Phone: [phone] Discharge summary [facility] Medical Records Department [address] [place] [address] Emergency Department Summary 01/09/25 MR#: [id number] Acct: [id number] Name: BETSY RODRIGEZ Rep #:[id number] : 1955 69 From: Austin Mack MD PCP: Dr. 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 She and her son state that this is her third round of chemotherapy infusion. She usually gets that once every 3weeks. This was the third dose of her white blood cell booster as she calls it. She had not had a reaction to the first 2, but they state that approximately 15minutes after administration, on the way home she experienced 10 to 15 minutes of chest pain and pressure. She states she had nausea with it but no vomiting. She felt short of breath as well. No recent fevers or chills, no cough. She st ates her symptoms have resolved. She is unsure if she had a reaction to her white blood cell booster. 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 Small cell lung cancer Loss of hearing Wears glasses Wears dentures Post-menopausal Thyroid disease Arthritis High cholesterol DVT (deep venous thrombosis) Injury of back Migraine headache Syncope Difficulty chewing History of hiatal hernia History of ulceration History of diverticulitis Gastric reflux Former smoker Asthma CPAP (continuous positive airway pressure) dependence Leg cramps Shortness of breath on exertion History of pain when walking Hypertension Heart murmur History of echocardiogram History of stress test Cardiology follow-up encounter Bradycardia Chronic respiratory failure with hypoxia Smoking greater than 40 pack years ARMANDO (obstructive sleep apnea) Pulmonary hypertension Bronchiectasis History of staph infection HTN (hypertension) Hypoxia COVID-19 Home Medications ?Medication ?Instructions ?Recorded ?Last Taken ?Type levothyroxine 25 mcg tablet 25 mcg PO DAILY thyroid 01/09/25 History gabapentin 400 mg capsule 400 mg PO TID nerve pain 01/09/25 History Disability Placard #1 ea 09/15/20 Unknown Rx potassium citrate 10 mEq (1,080 20 meq PO DAILY potass ium 01/26/22 12/11/24 History mg) tablet,extended release albuterol sulfate 90 mcg/actuation 2 puff inhalation Q 4H PRN 06/13/23 Unknown History aerosol inhaler shortness of breath or wheez ing fluticasone propionate 50 1 spray intranasal DAILY PRN nasal 05/28/24 Unknown History mcg/actuation nasal congestion spray,suspension (Flonase Allergy Relief) cholecalciferol (vitamin D3) 25 25 mcg PO DAILY vitami n 11/12/24 01/09/25 His tory mcg (1,000 unit) capsule (Vitamin D3) losartan 25 mg tablet 25 mg PO DAILY blood pressur e 11/12/24 01/09/25 History ondansetron HCl 8 mg tablet 8 mg PO Q8H PRN nausea and vomiting 11/24/24 01/09/25 History docusate sodium 100 mg capsule 100 mg PO BID PRN const ipation 12/11/24 Unknown History omeprazole 40 mg capsule,delayed 40 mg PO BID gerd 01/09/25 History release lidocaine-prilocaine 2.5 %-2.5 % 1 applic topical ONCE PRN port 12/15/24 Unknown Rx topical cream access 30 days #30 grams prochlorperazine maleate 10 mg 10 mg PO Q6H PRN nausea and 12/15/24 01/07/25 Rx tablet vomiting #30 tabs mirtazapine 15 mg tablet 15 mg PO QHS #30 tabs 01/08/25 Rx calcium carbonate (Calcium 600) 600 mg PO DAILY 01/09/25 History oxycodone 10 mg tablet 10 mg PO Q4H PRN pain 01/09/25 History Allergy/AdvReac Type Severity Reaction Status Date / Time MEAGAN Inhibitors Allergy Rash Verified 01/09/25 15:36 codeine Allergy Vomiting Verified 01/09/25 15:36 walnut Allergy Food Verified 01/09/25 15:36 Allergy prednisone AdvReac Other Verified 01/09/25 15:36 Wrhaexd-EZG-HtW Reductase AdvReac cramps Verified 01/09/25 15:36 Inhibitor (Yzkdcuc-Wfy-Gyz Reductase Inhibitor) Family History Mother Cancer Hx Lung CA. Father Cancer Hx Lung CA. Surgical History Hx of right cataract extraction Hx of left cataract extraction Hx of breast reconstruction Hx of foot surgery Hx of surgical amputation of finger Hx of elbow surgery History of carpal tunnel surgery Hx of vein stripping History of cholecystectomy History of back surgery History of eye surgery History of breast biopsy History of tubal ligation History of History of appendectomy History of tonsillectomy Social History household members: spouse Smoking Status: Former smoker quit date: 08/17/16 Tobacco: How many years used: 45 alcohol intake: never ROS ROS ED ROS Narrative Review of systems positive for midsternal chest pressure and discomfort associated with nausea and shortness of breath. No diaphoresis. No vomiting. No exacerbating or alleviating factors. Pain and pressure/discomfort lasted approximately 15 minutes but has since resolved. EXAM Physical Exam Narrative Exam Narrative: Afebrile. Vital signs noted. Nontoxic-appearing. Cardiovascular examination of is a regular rate and rhythm, no murmurs rubs or gallops appreciated. Lungs are clear to auscultation bilaterally. The abdomen is soft and nontender. Positive bowel sounds. No guarding or rebound. Neurological examination is nonfocal and nonlateralizing. No pedal edema. Const Vital Signs: 01/09/25 15:36 01/09/25 15:36 01/09/25 15:53 Temperature 98.5 F Temperature Source Oral Pulse Rate 90 87 Respiratory Rate 14 17 Respiratory Effort Blood Pressure 131/82 H 131/82 H Blood Pressure Mean 98 98 Pulse Ox 92 96 Oxygen Delivery Method Room Air Room Air Room Air Oxygen Flow Rate (L/min) 01/09/25 15:53 01/09/25 15:57 01/09/25 16:03 Temperature Temperature Source Pulse Rate 77 99 Respiratory Rate 19 H 18 Respiratory Effort Normal Non-Labored Blood Pressure Blood Pressure Mean Pulse Ox 94 90 Oxygen Delivery Method Oxygen Flow Rate (L/min) 01/09/25 16:05 01/09/25 16:15 01/09/25 16:30 Temperature 98.9 F Temperature Source Oral Pulse Rate 96 73 80 Respiratory Rate 12 18 23 H Respiratory Effort Blood Pressure 131/82 H 120/67 Blood Pressure Mean 98 82 Pulse Ox 93 96 96 Oxygen Delivery Method Room Air Oxygen Flow Rate (L/min) 01/09/25 16:45 01/09/25 16:58 01/09/25 17:00 Temperature 98.9 F Temperature Source Oral Pulse Rate 81 96 78 Respiratory Rate 25 H 24 H 21 H Respiratory Effort Blood Pressure 120/67 131/68 H Blood Pressure Mean 84 83 Pulse Ox 94 96 96 Oxygen Delivery Method Room Air Oxygen Flow Rate (L/min) 01/09/25 17:15 01/09/25 17:30 01/09/25 17:45 Temperature Temperature Source Pulse Rate 72 69 69 Respiratory Rate 15 22 H 22 H Respiratory Effort Blood Pressure 103/57 L Blood Pressure Mean 71 Pulse Ox 95 93 93 Oxygen Delivery Method Oxygen Flow Rate (L/min) 01/09/25 18:00 01/09/25 18:00 01/09/25 18:04 Temperature 99.1 F Temperature Source Oral Pulse Rate 69 Respiratory Rate 18 Respiratory Effort Blood Pressure 106/54 L 103/53 L Blood Pressure Mean 70 69 Pulse Ox 91 95 Oxygen Delivery Method Nasal Cannula Oxygen Flow Rate (L/min) 2 01/09/25 18:15 01/09/25 18:16 01/09/25 18:17 Temperature Temperature Source Pulse Rate 70 Respiratory Rate 23 H Respiratory Effort Blood Pressure Blood Pressure Mean Pulse Ox 88 88 94 Oxygen Delivery Method Room Air Nasal Cannula Oxygen Flow Rate (L/min) 2 01/09/25 18:30 01/09/25 18:45 01/09/25 19:00 Temperature Temperature Source Pulse Rate 71 74 76 Respiratory Rate 22 H 14 11 L Respiratory Effort Blood Pressure 112/49 L 118/65 Blood Pressure Mean 68 82 Pulse Ox 97 97 96 Oxygen Delivery Method Oxygen Flow Rate (L/min) 01/09/25 19:07 01/09/25 19:09 Temperature 98.8 F 98.8 F Temperature Source Oral Pulse Rate 76 76 Respiratory Rate 10 L 10 L Respiratory Effort Blood Pressure 112/49 L 112/49 L Blood Pressure Mean 70 70 Pulse Ox 96 96 Oxygen Delivery Method Nasal Cannula Oxygen Flow Rate (L/min) 2 MDM MDM MDM Narrative Medical decision making narrative: The differential diagnosis includes but not limited to medication side effect versus allergic reaction versus anaphylaxis versus chest pain of other etiology including ACS. I have very low suspicion for pulmonary embolism. Pulse ox 96% on room air without evidence of hypoxia. Her symptoms have resolved as well. Chest pain workup was pursued. Chest x-ray obtained and interpreted by myself independently in 1 view shows mild congestion, but no pneumothorax or discrete infiltrate. I do not feel antibiotics are indicated. EKG was obtained and interpreted by myself independently as normal sinus rhythm at 76 bpm without ectopy or acute ST changes. No STEMI. In review of her laboratory work she does have a leukocytosis of 18.3 with hemoglobin 11.5, hematocrit 34.6, platelet count 442. Sodium normal at 141 with potassium 3.6, BUN of 17 and creatinine 0.67. High-sensitivity troponin initially is 12 with repeat being 19. According to the guidelines, the delta troponin greater than 6indicates the need for observation/rule in for ACS. I discussed patient with Dr. Fernandez with oncology who agrees with observation/admission. I then discussed the patient with Dr. Estrella Cabezas for observation on PCU given her elevated troponins and chest pain. She would like a BNP added to look for fluidoverload. Additionally, patient has oxygen at home which she wears on occasion and she required it here as she had a pulse ox of 88% on room air. Currently she is pain-free. Disposition is assigned observation. Patient is in stable condition. History & Record Review Discussion w/independent historian: Patient and Family Lab Data Attestation: I reviewed the patient's lab results. Labs: Laboratory Results - last 24 hr 01/09/25 01/09/25 15:50 17:58 WBC 18.3 H RBC 3.83 L Hgb 11.5 L Hct 34.6 L MCV 90.3 MCH 30.0 MCHC 33.2 RDW Std Deviation 60.6 H RDW Coeff of Brittanie 18.8 H Plt Count 442 MPV 9.9 Immature Gran % (Auto) 1.800 H Neut % (Auto) 93.2 H Lymph % (Auto) 4.7 L Roosevelt % (Auto) 0.2 Eos % (Auto) 0.0 Baso % (Auto) 0.1 Absolute Neuts (auto) 17.1 H Absolute Lymphs (auto) 0.86 Nucleated RBC % 0 Platelet Estimate SLT INC Sodium 141 Potassium 3.6 Chloride 107 Carbon Dioxide 20.1 L Anion Gap 14 BUN 17 Creatinine 0.67 L Estim Creat Clear Calc 61.24 Est GFR (MDRD) Non-Af 94 BUN/Creatinine Ratio 25.5 H Glucose 64 L Calcium 8.8 Troponin T High Sens 12 Troponin T Hi Sens 2 Hr 19 H NT pro BNP II 3119 H Radiography Chest X-Ray - ED: 1 View, Read by ED Physician, Read by Radiologist and CHF Diagnostic Testing: Clinical Impression(s) from Imaging Studies Chest X-Ray 01/09/25 16:09 IMPRESSION: Interstitial and patchy airspace disease, may relate to congestion and edema. Reading Location: [facility] Discharge Plan Dx/Rx/DC Orders Clinical Impression: Chest pain, Shortness of breath, Small cell lung cancer, Elevated troponin Disposition Disposition: Acute Care Hospital [facility] Discharge Date/Time: 01/09/25 20:00 What to do if you have Problems For any increased pain, shortness of breath, bleeding, nausea or vomiting, chestpain, or any unexpected problems, contact your Primary Care Provider. Call [facility] ([phone]) or report tothe closest Emergency Room. Call 911 if necessary. 01/09/25 2320 Cosigner Signature (if applicable): CC: Dr. Fabricio Lemos MD ~ Signed [facility]04-25-2025 Progress note Author sEtrella Cabezas [facility] Note Date/Time January 09, 2025 8:1 7pm [facility] Medical Records Department [address] [place] [address] Progress Note - Hospitalist 01/09/252015 MR#: [id number] Acct: [id number] Name: BETSY RODRIGEZ Rep #:[id number] : 1955 69 From: Estrella Cabezas MD PCP: Dr. Fabricio Lemos MD Status :ADM FARIBA Location: [place] [address] Hospitalist Note BNP elevated, will give dose of Lasix 01/09/252016 <Electronically signed by Estrella Cabezas MD> Cosigner Signature (if applicable): CC: ~ Signed [facility] Work Phone: 1(153) 661-393104-25-2025 History and physical note Author Estrella Cabezas [facility] Note Date/Time January 09, 2025 8:0 5pm [facility] Medical Records Department [address] [place] [address] H&P Exam - Hospitalist 01/09/25 193 MR#: [id number] Acct: [id number] Name: BETSY RODRIGEZ Rep #:[id number] : 1955 69 From: Estrella Cabezas MD PCP: Dr. Fabricio Lemos MD Status :ADM FARIBA Location: [place] [address] HPI - General General Date of Admission: 01/09/25 Date of Service: 01/09/25 Chief Complaint: episode of chest pain HPI Narrative BETSY RODRIGEZ, is a 69 F with a history of suspected lung carcinoma with metastasis to liver and bone, GERD, ARMANDO, hypothyroidism, hypertension, and chronic pain pain related to her cancer who presented to [facility] ED 01/09/2025 due to an episode of chest pain and shortness of breath. Patient underwent chemotherapy today and had her third dose of Neupogen, 15 minutes later she experienced 10 to 15 minutes of a feeling of chest heaviness, nausea, little bit of shortness of breath. Symptoms almost completely resolved at the time of ED physician evaluation. In the ED patient afebrile, heart rate 78 with a blood pressure 131/68, respiratory rate 21 and pulse ox 96%, did decrease to 88% on room air and patient was placed on 2 L with recovery to mid to high 90s. CBC showed white blood cell count of 18.3 though patient is receiving Neupogen so unclear significance, BMP with kidney function at baselinebut did reveal glucose of 64. X-ray showed interstitial and patchy airspace disease that required congestion and edema. Initial troponin of 12 with a repeat of 19, given this hospitalist contacted for admission. Patient evaluatedwith family member at bedside, she reports history as above with the episode of chest heaviness that started 10 to 15 minutes after her Neupogen, that feeling resolved but she still feels like she is not quite back to normal, reports a little bit of shortness of breath, had a little bit of nausea earlier this resolved. Has had some swelling in her lower extremities bilaterally that she has attributed to chemo. Denies any fever or cough, no bowel or bladder changes. [facility] Medical History (Updated 01/09/25 @ 19:35 by Christina Muñiz) Ambulates with cane Arthritis Asthma Back pain Bilateral lower extremity edema Bradycardia Bronchiectasis Cardiology follow-up encounter Chest pain Chronic respiratory failure with hypoxia COVID-19 CPAP (continuous positive airway pressure) dependence Current use of steroid medication Difficulty chewing DVT (deep venous thrombosis) Encounter for chemotherapy management Former smoker Gastric reflux GERD (gastroesophageal reflux disease) Heart murmur Heartburn High cholesterol High grade neuroendocrine carcinoma of lung History of diverticulitis History of echocardiogram History of hiatal hernia History of pain when walking History of staph infection History of stress test History of ulceration HTN (hypertension) Hypertension Hypothyroidism Hypoxia Injury of back Internal hemorrhoids Jaundice Leg cramps Loss of hearing Metastasis to bone Migraine headache On home oxygen therapy ARMANDO (obstructive sleep apnea) Post-menopausal Pulmonary hypertension Regional lymph node metastasis present Shortness of breath on exertion Sleep apnea Sleep disturbance Small cell lung cancer Smoking greater than 40 pack years Syncope Thyroid disease Wears dentures Wears glasses Home Medications ?Medication ?Instructions ?Recorded ?Last Taken ?Type levothyroxine 25 mcg tablet 25 mcg PO DAILY thyroid 01/09/25 History gabapentin 400 mg capsule 400 mg PO TID nerve pain 01/09/25 History Disability Placard #1 ea 09/15/20 Unknown Rx potassium citrate 10 mEq (1,080 20 meq PO DAILY potass ium 01/26/22 12/11/24 History mg) tablet,extended release albuterol sulfate 90 mcg/actuation 2 puff inhalation Q 4H PRN 06/13/23 Unknown History aerosol inhaler shortness of breath or wheez ing fluticasone propionate 50 1 spray intranasal DAILY PRN nasal 05/28/24 Unknown History mcg/actuation nasal congestion spray,suspension (Flonase Allergy Relief) cholecalciferol (vitamin D3) 25 25 mcg PO DAILY vitami n 11/12/24 01/09/25 History mcg (1,000 unit) capsule (Vitamin D3) losartan 25 mg tablet 25 mg PO DAILY blood pressur e 11/12/24 01/09/25 History ondansetron HCl 8 mg tablet 8 mg PO Q8H PRN nausea and vomiting 11/24/24 01/09/25 History docusate sodium 100 mg capsule 100 mg PO BID PRN const ipation 12/11/24 Unknown History omeprazole 40 mg capsule,delayed 40 mg PO BID gerd 01/09/25 History release lidocaine-prilocaine 2.5 %-2.5 % 1 applic topical ONCE PRN port 12/15/24 Unknown Rx topical cream access 30 days #30 grams prochlorperazine maleate 10 mg 10 mg PO Q6H PRN nausea and 12/15/24 01/07/25 Rx tablet vomiting #30 tabs mirtazapine 15 mg tablet 15 mg PO QHS #30 tabs 01/08/25 Rx calcium carbonate (Calcium 600) 600 mg PO DAILY 01/09/25 History oxycodone 10 mg tablet 10 mg PO Q4H PRN pain 01/09/25 History Allergy/AdvReac Type Severity Reaction Status Date / Time MEAGAN Inhibitors Allergy Rash Verified 01/09/25 15:36 codeine Allergy Vomiting Verified 01/09/25 15:36 walnut Allergy Food Verified 01/09/25 15:36 Allergy prednisone AdvReac Other Verified 01/09/25 15:36 Ilzxokn-TCF-HnU Reductase AdvReac cramps Verified 01/09/25 15:36 Inhibitor (Ekibrol-Mhx-Fmh Reductase Inhibitor) Family History Mother Cancer Hx Lung CA. Father Cancer Hx Lung CA. Surgical History History of appendectomy History of back surgery History of breast biopsy History of History of carpal tunnel surgery History of cholecystectomy History of eye surgery History of tonsillectomy History of tubal ligation Hx of breast reconstruction Hx of elbow surgery Hx of foot surgery Hx of left cataract extraction Hx of right cataract extraction Hx of surgical amputation of finger Hx of vein stripping Social History household members: spouse Smoking Status: Former smoker quit date: 08/17/16 Tobacco: How many years used: 45 alcohol intake: never ROS ROS Narrative General: Denies fever/chills HENT: Does have a bit of headache, denies stuffy nose, denies sore throat EYES: Denies changes in vision Resp: Denies cough, little bit of shortness of breath Cardiac: Had the episode of chest heaviness in the center of her chest that is improved now but reports she feels still not quite back to normal GI: Denies abdominal pain, denies changes in bowel, denies nausea/vomiting at this time : Denies changes in urination Extremity: Reports a lot of swelling in her feet that she has been attributing to chemo MSK: Denies focal weakness Neuro: Denies any numbness/tingling Heme: Denies any bleeding or bruising Skin: Denies rashes Psychiatric: No complaints voiced Vital Signs Vital Signs Vital Signs: 01/09/25 15:36 01/09/25 15:36 01/09/25 15:53 Temperature 98.5 F Temperature Source Oral Pulse Rate 90 87 Respiratory Rate 14 17 Respiratory Effort Blood Pressure 131/82 H 131/82 H Blood Pressure Mean 98 98 Pulse Ox 92 96 Oxygen Delivery Method Room Air Room Air Room Air Oxygen Flow Rate (L/min) 01/09/25 15:53 01/09/25 15:57 01/09/25 16:03 Temperature Temperature Source Pulse Rate 77 99 Respiratory Rate 19 H 18 Respiratory Effort Normal Non-Labored Blood Pressure Blood Pressure Mean Pulse Ox 94 90 Oxygen Delivery Method Oxygen Flow Rate (L/min) 01/09/25 16:05 01/09/25 16:15 01/09/25 16:30 Temperature 98.9 F Temperature Source Oral Pulse Rate 96 73 80 Respiratory Rate 12 18 23 H Respiratory Effort Blood Pressure 131/82 H 120/67 Blood Pressure Mean 98 82 Pulse Ox 93 96 96 Oxygen Delivery Method Room Air Oxygen Flow Rate (L/min) 01/09/25 16:45 01/09/25 16:58 01/09/25 17:00 Temperature 98.9 F Temperature Source Oral Pulse Rate 81 96 78 Respiratory Rate 25 H 24 H 21 H Respiratory Effort Blood Pressure 120/67 131/68 H Blood Pressure Mean 84 83 Pulse Ox 94 96 96 Oxygen Delivery Method Room Air Oxygen Flow Rate (L/min) 01/09/25 17:15 01/09/25 17:30 01/09/25 17:45 Temperature Temperature Source Pulse Rate 72 69 69 Respiratory Rate 15 22 H 22 H Respiratory Effort Blood Pressure 103/57 L Blood Pressure Mean 71 Pulse Ox 95 93 93 Oxygen Delivery Method Oxygen Flow Rate (L/min) 01/09/25 18:00 01/09/25 18:00 01/09/25 18:04 Temperature 99.1 F Temperature Source Oral Pulse Rate 69 Respiratory Rate 18 Respiratory Effort Blood Pressure 106/54 L 103/53 L Blood Pressure Mean 70 69 Pulse Ox 91 95 Oxygen Delivery Method Nasal Cannula Oxygen Flow Rate (L/min) 2 01/09/25 18:15 01/09/25 18:16 01/09/25 18:17 Temperature Temperature Source Pulse Rate 70 Respiratory Rate 23 H Respiratory Effort Blood Pressure Blood Pressure Mean Pulse Ox 88 88 94 Oxygen Delivery Method Room Air Nasal Cannula Oxygen Flow Rate (L/min) 2 01/09/25 18:30 01/09/25 18:45 01/09/25 19:00 Temperature Temperature Source Pulse Rate 71 74 76 Respiratory Rate 22 H 14 11 L Respiratory Effort Blood Pressure 112/49 L 118/65 Blood Pressure Mean 68 82 Pulse Ox 97 97 96 Oxygen Delivery Method Oxygen Flow Rate (L/min) 01/09/25 19:07 01/09/25 19:09 Temperature 98.8 F 98.8 F Temperature Source Oral Pulse Rate 76 76 Respiratory Rate 10 L 10 L Respiratory Effort Blood Pressure 112/49 L 112/49 L Blood Pressure Mean 70 70 Pulse Ox 96 96 Oxygen Delivery Method Nasal Cannula Oxygen Flow Rate (L/min) 2 Weight Weight: 69.6 kg Body Mass Index (BMI) 27.1 Physical Exam Narrative General: Alert, oriented, no apparent distress HEENT: Atraumatic, normocephalic Eyes: Anicteric, normal conjunctiva, extraocular movements grossly intact Neck: Supple Respiratory: No overt wheezes, crackles, rhonchi appreciated on auscultation, normal respiratory effort Cardiovascular: Regular rate and rhythm GI: Soft, nontender, nondistended Extremities: Does have trace to 1+ lower extremity bilateral edema equal on bothsides Musculoskeletal: Moving all extremities Neuro: No overt focal neurological deficits Skin: No rashes appreciated Psych: Cooperative Results Lab / Micro Data 01/09/25 15:50 01/09/25 15:50 Labs: Laboratory Results - last 24 hr 01/09/25 15:50: WBC 18.3 H, RBC 3.83 L, Hgb 11.5 L, Hct 34.6 L, MCV 90.3, MCH 30.0, MCHC 33.2, RDW Std Deviation 60.6 H, RDW Coeff of Brittanie 18.8 H, Plt Count 442, MPV 9.9, Immature Gran % (Auto) 1.800 H, Neut % (Auto) 93.2 H, Lymph % (Auto) 4.7 L, Roosevelt % (Auto) 0.2, Eos % (Auto) 0.0, Baso % (Auto) 0.1, Absolute Neuts (auto) 17.1 H, Absolute Lymphs (auto) 0.86, Nucleated RBC % 0, Platelet Estimate SLT INC, Sodium 141, Potassium 3.6, Chloride 107, Carbon Dioxide 20.1 L, Anion Gap 14, BUN 17, Creatinine 0.67 L, Estim Creat Clear Calc 61.24, Est GFR(MDRD) Non-Af 94, BUN/Creatinine Ratio 25.5 H, Glucose 64 L, Calcium 8.8, Troponin T High Sens 12 01/09/25 17:58: Troponin T Hi Sens 2 Hr 19 H Imaging Radiology Impression Chest X-Ray 01/09/25 16:09 IMPRESSION: Interstitial and patchy airspace disease, may relate to congestion and edema. Reading Location: [facility] Assessment & Plan Assessment/Plan (1) Chest pain: PLAN: Plan # Chest pain - Initial troponin 12 with a repeat of 19, unclear significance - Chest x-ray did query congestion and edema - Checking proBNP -continue to trend troponin - Admit to telemetry - Will obtain echocardiogram -Unclear if patient has mild amount of fluid overload and this caused the chest discomfort, saturation of 88% and bump in troponin or if other etiology, workup as above # Low blood glucose - Patient's BMP glucose only 64 - Will check glucoses to monitor hypoglycemia so can be noted and intervened upon if patient is having hypoglycemic episodes # Hypoxia -Patient has a history of using oxygen as needed, did drop to 88% -Appears to have some mild lower extremity swelling bilaterally and chest x-ray appears congested -Awaiting proBNP -If elevated can give dose of Lasix -Will check viral panels -Echocardiogram -If workup otherwise not revealing may need to consider CTA, but based on modified Wells criteria PE is unlikely (<4) given a score of 2.5 for malignancy and documentation reveals patient had a DVT in the 90s #leukocytosis -Spoke with Dr. Fernandez regarding patient's elevated white blood cell count as one would not expect Neupogen to cause an increase is early, he concurred but did note that she gets steroids on the day she gets chemo, patient afebrile and vitally stable, suspect this is due to demargination with steroids, it was concurred that empiric antibiotics without concern for source or infection wouldnot be indicated. Continue to monitor, if patient were to develop any fever could consider cultures and empiric antibiotics while awaiting cultures # Suspected lung cancer with metastasis -Follows Dr. Fernandez on outpatient basis -Her oncologist was contacted by ED physician -Will need to continue to follow-up on outpatient basis #GERD -Continue PPI #Hypertension - Blood pressure 112/49 in the ED, will hold losartan to avoid hypotension but if blood pressure remains stable can resume #ARMANDO -Continue home CPAP #Hypothyroidism -Continue Synthroid #DVT ppx: Lovenox subcu Estrella Cabezas MD Charges/Coding Visit Charges Inpatient E&M: 69527 Init Hosp L2 01/09/252004 <Electronically signed by Estrella Cabezas MD> Cosigner Signature (if applicable): CC: Dr. Fabricio Lemos MD; Dr. Estrella Cabezas MD~ Signed [facility] Work Phone: 1(390) 543-796004-25-2025 Progress note [facility] Medical Records Department [address] [place] [address] Progress Note - Hospitalist 01/09/252015 MR#: [id number] Acct: [id number] Name: BETSY RODRIGEZ Rep #:[id number] : 1955 69 From: Estrella Cabezas MD PCP: Dr. Fabricio Lemos MD Status :ADM FARIBA Location: [place] [address] Hospitalist Note BNP elevated, will give dose of Lasix 01/09/252016 Cosigner Signature (if applicable): CC: ~ Signed [facility]04-25-2025 History and physical note [facility] Medical Records Department [address] [facility] [place] [address] H&P Exam - Hospitalist 01/09/251930 MR#: [id number] Acct: [id number] Name: BETSY RODRIGEZ Rep #:[id number] : 1955 69 From: Estrella Cabezas MD PCP: Dr. 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 Patient underwent chemotherapy today and had her third dose of Neupogen, 15 minutes later she experienced 10 to 15 minutes of a feeling of chest heaviness, nausea, little bit of shortness of breath. Symptoms almost completely resolved at the time of ED physician evaluation. In the ED patient afebrile, heart rate 78 with a blood pressure 131/68, respiratory rate 21 and pulse ox 96%, did decrease to 88% on room air and patient was placed on 2 L with recovery to mid to high 90s. CBC showed white blood cell count of 18.3 though patient is receiving Neupogen so unclear significance, BMP with kidney function at baselinebut did reveal glucose of 64. X-ray showed interstitial and patchy airspace disease that required congestion and edema. Initial troponin of 12 with a repeat of 19, given this hospitalist contacted for admission. Patient evaluatedwith family member at bedside, she reports history as above with the episode of chest heaviness that started 10 to 15 minutes after her Neupogen, that feeling resolved but she still feels like she is not quite back to normal, reports a little bit of shortness of breath, had a little bit of nausea earlier this resolved. Has had some swelling in her lower extremities bilaterally that she has attributed to chemo. Denies any fever or cough, no bowel or bladder changes. [facility] Medical History (Updated 01/09/25 @ 19:35 by Christina Muñiz) Ambulates with cane Arthritis Asthma Back pain Bilateral lower extremity edema Bradycardia Bronchiectasis Cardiology follow-up encounter Chest pain Chronic respiratory failure with hypoxia COVID-19 CPAP (continuous positive airway pressure) dependence Current use of steroid medication Difficulty chewing DVT (deep venous thrombosis) Encounter for chemotherapy management Former smoker Gastric reflux GERD (gastroesophageal reflux disease) Heart murmur Heartburn High cholesterol High grade neuroendocrine carcinoma of lung History of diverticulitis History of echocardiogram History of hiatal hernia History of pain when walking History of staph infection History of stress test History of ulceration HTN (hypertension) Hypertension Hypothyroidism Hypoxia Injury of back Internal hemorrhoids Jaundice Leg cramps Loss of hearing Metastasis to bone Migraine headache On home oxygen therapy ARMANDO (obstructive sleep apnea) Post-menopausal Pulmonary hypertension Regional lymph node metastasis present Shortness of breath on exertion Sleep apnea Sleep disturbance Small cell lung cancer Smoking greater than 40 pack years Syncope Thyroid disease Wears dentures Wears glasses Home Medications ?Medication ?Instructions ?Recorded ?Last Taken ?Type levothyroxine 25 mcg tablet 25 mcg PO DAILY thyroid 01/09/25 History gabapentin 400 mg capsule 400 mg PO TID nerve pain 01/09/25 History Disability Placard #1 ea 09/15/20 Unknown Rx potassium citrate 10 mEq (1,080 20 meq PO DAILY potass ium 01/26/22 12/11/24 History mg) tablet,extended release albuterol sulfate 90 mcg/actuation 2 puff inhalation Q 4H PRN 06/13/23 Unknown History aerosol inhaler shortness of breath or wheez ing fluticasone propionate 50 1 spray intranasal DAILY PRN nasal 05/28/24 Unknown History mcg/actuation nasal congestion spray,suspension (Flonase Allergy Relief) cholecalciferol (vitamin D3) 25 25 mcg PO DAILY vitami n 11/12/24 01/09/25 History mcg (1,000 unit) capsule (Vitamin D3) losartan 25 mg tablet 25 mg PO DAILY blood pressur e 11/12/24 01/09/25 History ondansetron HCl 8 mg tablet 8 mg PO Q8H PRN nausea and vomiting 11/24/24 01/09/25 History docusate sodium 100 mg capsule 100 mg PO BID PRN const ipation 12/11/24 Unknown History omeprazole 40 mg capsule,delayed 40 mg PO BID gerd 01/09/25 History release lidocaine-prilocaine 2.5 %-2.5 % 1 applic topical ONCE PRN port 12/15/24 Unknown Rx topical cream access 30 days #30 grams prochlorperazine maleate 10 mg 10 mg PO Q6H PRN nausea and 12/15/24 01/07/25 Rx tablet vomiting #30 tabs mirtazapine 15 mg tablet 15 mg PO QHS #30 tabs 01/08/25 Rx calcium carbonate (Calcium 600) 600 mg PO DAILY 01/09/25 History oxycodone 10 mg tablet 10 mg PO Q4H PRN pain 01/09/25 History Allergy/AdvReac Type Severity Reaction Status Date / Time MEAGAN Inhibitors Allergy Rash Verified 01/09/25 15:36 codeine Allergy Vomiting Verified 01/09/25 15:36 walnut Allergy Food Verified 01/09/25 15:36 Allergy prednisone AdvReac Other Verified 01/09/25 15:36 Isxltfm-CKC-TnK Reductase AdvReac cramps Verified 01/09/25 15:36 Inhibitor (Yyaxmyo-Ybx-Diq Reductase Inhibitor) Family History Mother Cancer Hx Lung CA. Father Cancer Hx Lung CA. Surgical History History of appendectomy History of back surgery History of breast biopsy History of History of carpal tunnel surgery History of cholecystectomy History of eye surgery History of tonsillectomy History of tubal ligation Hx of breast reconstruction Hx of elbow surgery Hx of foot surgery Hx of left cataract extraction Hx of right cataract extraction Hx of surgical amputation of finger Hx of vein stripping Social History household members: spouse Smoking Status: Former smoker quit date: 08/17/16 Tobacco: How many years used: 45 alcohol intake: never ROS ROS Narrative General: Denies fever/chills HENT: Does have a bit of headache, denies stuffy nose, denies sore throat EYES: Denies changes in vision Resp: Denies cough, little bit of shortness of breath Cardiac: Had the episode of chest heaviness in the center of her chest that is improved now but reports she feels still not quite back to normal GI: Denies abdominal pain, denies changes in bowel, denies nausea/vomiting at this time : Denies changes in urination Extremity: Reports a lot of swelling in her feet that she has been attributing to chemo MSK: Denies focal weakness Neuro: Denies any numbness/tingling Heme: Denies any bleeding or bruising Skin: Denies rashes Psychiatric: No complaints voiced Vital Signs Vital Signs Vital Signs: 01/09/25 15:36 01/09/25 15:36 01/09/25 15:53 Temperature 98.5 F Temperature Source Oral Pulse Rate 90 87 Respiratory Rate 14 17 Respiratory Effort Blood Pressure 131/82 H 131/82 H Blood Pressure Mean 98 98 Pulse Ox 92 96 Oxygen Delivery Method Room Air Room Air Room Air Oxygen Flow Rate (L/min) 01/09/25 15:53 01/09/25 15:57 01/09/25 16:03 Temperature Temperature Source Pulse Rate 77 99 Respiratory Rate 19 H 18 Respiratory Effort Normal Non-Labored Blood Pressure Blood Pressure Mean Pulse Ox 94 90 Oxygen Delivery Method Oxygen Flow Rate (L/min) 01/09/25 16:05 01/09/25 16:15 01/09/25 16:30 Temperature 98.9 F Temperature Source Oral Pulse Rate 96 73 80 Respiratory Rate 12 18 23 H Respiratory Effort Blood Pressure 131/82 H 120/67 Blood Pressure Mean 98 82 Pulse Ox 93 96 96 Oxygen Delivery Method Room Air Oxygen Flow Rate (L/min) 01/09/25 16:45 01/09/25 16:58 01/09/25 17:00 Temperature 98.9 F Temperature Source Oral Pulse Rate 81 96 78 Respiratory Rate 25 H 24 H 21 H Respiratory Effort Blood Pressure 120/67 131/68 H Blood Pressure Mean 84 83 Pulse Ox 94 96 96 Oxygen Delivery Method Room Air Oxygen Flow Rate (L/min) 01/09/25 17:15 01/09/25 17:30 01/09/25 17:45 Temperature Temperature Source Pulse Rate 72 69 69 Respiratory Rate 15 22 H 22 H Respiratory Effort Blood Pressure 103/57 L Blood Pressure Mean 71 Pulse Ox 95 93 93 Oxygen Delivery Method Oxygen Flow Rate (L/min) 01/09/25 18:00 01/09/25 18:00 01/09/25 18:04 Temperature 99.1 F Temperature Source Oral Pulse Rate 69 Respiratory Rate 18 Respiratory Effort Blood Pressure 106/54 L 103/53 L Blood Pressure Mean 70 69 Pulse Ox 91 95 Oxygen Delivery Method Nasal Cannula Oxygen Flow Rate (L/min) 2 01/09/25 18:15 01/09/25 18:16 01/09/25 18:17 Temperature Temperature Source Pulse Rate 70 Respiratory Rate 23 H Respiratory Effort Blood Pressure Blood Pressure Mean Pulse Ox 88 88 94 Oxygen Delivery Method Room Air Nasal Cannula Oxygen Flow Rate (L/min) 2 01/09/25 18:30 01/09/25 18:45 01/09/25 19:00 Temperature Temperature Source Pulse Rate 71 74 76 Respiratory Rate 22 H 14 11 L Respiratory Effort Blood Pressure 112/49 L 118/65 Blood Pressure Mean 68 82 Pulse Ox 97 97 96 Oxygen Delivery Method Oxygen Flow Rate (L/min) 01/09/25 19:07 01/09/25 19:09 Temperature 98.8 F 98.8 F Temperature Source Oral Pulse Rate 76 76 Respiratory Rate 10 L 10 L Respiratory Effort Blood Pressure 112/49 L 112/49 L Blood Pressure Mean 70 70 Pulse Ox 96 96 Oxygen Delivery Method Nasal Cannula Oxygen Flow Rate (L/min) 2 Weight Weight: 69.6 kg Body Mass Index (BMI) 27.1 Physical Exam Narrative General: Alert, oriented, no apparent distress HEENT: Atraumatic, normocephalic Eyes: Anicteric, normal conjunctiva, extraocular movements grossly intact Neck: Supple Respiratory: No overt wheezes, crackles, rhonchi appreciated on auscultation, normal respiratory effort Cardiovascular: Regular rate and rhythm GI: Soft, nontender, nondistended Extremities: Does have trace to 1+ lower extremity bilateral edema equal on bothsides Musculoskeletal: Moving all extremities Neuro: No overt focal neurological deficits Skin: No rashes appreciated Psych: Cooperative Results Lab / Micro Data 01/09/25 15:50 01/09/25 15:50 Labs: Laboratory Results - last 24 hr 01/09/25 15:50: WBC 18.3 H, RBC 3.83 L, Hgb 11.5 L, Hct 34.6 L, MCV 90.3, MCH 30.0, MCHC 33.2, RDW Std Deviation 60.6 H, RDW Coeff of Brittanie 18.8 H, Plt Count 442, MPV 9.9, Immature Gran % (Auto) 1.800 H, Neut % (Auto) 93.2 H, Lymph % (Auto) 4.7 L, Roosevelt % (Auto) 0.2, Eos % (Auto) 0.0, Baso % (Auto) 0.1, Absolute Neuts (auto) 17.1 H, Absolute Lymphs (auto) 0.86, Nucleated RBC % 0, Platelet Estimate SLT INC, Sodium 141, Potassium 3.6, Chloride 107, Carbon Dioxide 20.1 L, Anion Gap 14, BUN 17, Creatinine 0.67 L, Estim Creat Clear Calc 61.24, Est GFR(MDRD) Non-Af 94, BUN/Creatinine Ratio 25.5 H, Glucose 64 L, Calcium 8.8, Troponin T High Sens 12 01/09/25 17:58: Troponin T Hi Sens 2 Hr 19 H Imaging Radiology Impression Chest X-Ray 01/09/25 16:09 IMPRESSION: Interstitial and patchy airspace disease, may relate to congestion and edema. Reading Location: [facility] Assessment & Plan Assessment/Plan (1) Chest pain: PLAN: Plan # Chest pain - Initial troponin 12 with a repeat of 19, unclear significance - Chest x-ray did query congestion and edema - Checking proBNP -continue to trend troponin - Admit to telemetry - Will obtain echocardiogram -Unclear if patient has mild amount of fluid overload and this caused the chest discomfort, saturation of 88% and bump in troponin or if other etiology, workup as above # Low blood glucose - Patient's BMP glucose only 64 - Will check glucoses to monitor hypoglycemia so can be noted and intervened upon if patient is having hypoglycemic episodes # Hypoxia -Patient has a history of using oxygen as needed, did drop to 88% -Appears to have some mild lower extremity swelling bilaterally and chest x-ray appears congested -Awaiting proBNP -If elevated can give dose of Lasix -Will check viral panels -Echocardiogram -If workup otherwise not revealing may need to consider CTA, but based on modified Wells criteria PE is unlikely (<4) given a score of 2.5 for malignancy and documentation reveals patient had a DVT in the 90s #leukocytosis -Spoke with Dr. Fernandez regarding patient's elevated white blood cell count as one would not expect Neupogen to cause an increase is early, he concurred but did note that she gets steroids on the day she gets chemo, patient afebrile and vitally stable, suspect this is due to demargination with steroids, it was concurred that empiric antibiotics without concern for source or infection wouldnot beindicated. Continue to monitor, if patient were to develop any fever could consider cultures and empiric antibiotics while awaiting cultures # Suspected lung cancer with metastasis -Follows Dr. Fernandez on outpatient basis -Her oncologist was contacted by ED physician -Will need to continue to follow-up on outpatient basis #GERD -Continue PPI #Hypertension - Blood pressure 112/49 in the ED, will hold losartan to avoid hypotension but if blood pressure remains stable can resume #ARMANDO -Continue home CPAP #Hypothyroidism -Continue Synthroid #DVT ppx: Lovenox subcu Estrella Cabezas MD Charges/Coding Visit Charges Inpatient E&M: 03649 Init Hosp L2 01/09/252004 Cosigner Signature (if applicable): CC: Dr. Fabricio Lemos MD; Dr. Estrella Cabezas MD~ Signed [facility]04-25-2025 Radiology Diagnostic study note [facility] Imaging Services [address] [place], [place] [address] Chest 1 View (Portable) MR#: [id number] Acct: [id number] Name: BETSY RODRIGEZ Rep #: [id number] : 1955 F 69 From: Tasha Fajardo MD PCP: Dr. Fabricio Lemos MD Status: REG ER Study:Chest 1 View (Portable) Date of Exam: 01/09/25 Exam# [id number] Ordering Dr: Austin Mack MD EXAM: XR Chest, 1 View CLINICAL INDICATION: CHEST PAIN TECHNIQUE: Frontal view of the chest. COMPARISON: No relevant prior studies available. FINDINGS: LUNGS AND PLEURAL SPACES: Interstitial and patchy airspace disease, may relate to congestion and edema. HEART: Unremarkable. No cardiomegaly. MEDIASTINUM: Unremarkable. Normal mediastinal contour. BONES/JOINTS: Unremarkable. No acute fracture. TUBES, LINES AND DEVICES: Right-sided Mediport with the distal tip in the SVC. No pneumothorax. RAD/Chest 1 View (Portable) IMPRESSION: Interstitial and patchy airspace disease, may relate to congestion and edema. Reading Location: [facility] CC: Dr. Austin Mack MD; Dr. Fabricio Lemos MD ~ Hot Box Operator: Signed [facility]03-31-2025 Telephone encounter Note* Telephone Encounter - Marta Meadows RN - 12/15/2024 9:13 AM EDT The patient has been identified by name and date of : Yes Caregiver verified no other encounters exist for this prescription request: Yes Caregiver confirmed with patient/requestor that no other refills are due, in the near future, with this provider at this time: Yes The last office visit in the department: 11/12/2024 Does the patient have a future office visit with this provider/department: Yes 01/13/2025 Requested Prescriptions Pending Prescriptions Disp Refills potassium chloride (K-TAB) 10 mEq tablet 180 tablet 1 Sig: Take two tablets daily Marta Meadows RN December 15, 2024 9:[address] [facility]03-31-2025 Miscellaneous Notes* Telephone Encounter - Marta Meadows RN - 12/15/2024 9:13 AM EDT The patient has been identified by name and date of : Yes Caregiver verified no other encounters exist for this prescription request: Yes Caregiver confirmed with patient/requestor that no other refills are due, in the near future, with this provider at this time: Yes The last office visit in the department: 11/12/2024 Does the patient have a future office visit with this provider/department: Yes 01/13/2025 Requested Prescriptions Pending Prescriptions Disp Refills potassium chloride (K-TAB) 10 mEq tablet 180 tablet 1 Sig: Take two tablets daily Marta Meadows RN December 15, 2024 9:14 AM [facility] Consult note Author Lennox Schaefer [facility] Note Date/Time December 12, 2024 12: 33pm [facility] Medical Records Department [address] [place] [address] Anesthesia Postop Eval II 12/12/24 1233 MR#: [id number] Acct: [id number] Name: BETSY RODRIGEZ Rep #:[id number] : 1955 69 From: Lennox Schaefer MD PCP: Dr. 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 Anesthesia Postop Eval I: Fluid Summary Crystalloid volume administer 500 12/12/24 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 (ml) Colloids volume administered ( ml) Blood Product volume administered (ml) Total IV fluid infused 500 12/12/24 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 Anesthesia Postop Eval I: Summary Notes Anesthesia Complication No 12/12/24 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 Anesthesia Complication Comment: Post-operative progress note Anesthesia: Postop Eval II Evaluation Mental status: Awake Pain Level: 0 nausea: No Vomiting: No 12/12/24 1233 <Electronically signed by Lennox Schaefer MD > Date _ [facility] Schaefer [facility]: Date CC: ~ Signed [facility] Work Phone: 1(465) 424-280503-28-2025 Consult note Author Nohemi Andres [facility] Note Date/Time December 12, 2024 12: 31pm [facility] Medical Records Department [address] [place] [address] Anesthesia Postop Eval I 12/12/24 1230 MR#: [id number] Acct: [id number] Name: BETSY RODRIGEZ Rep #:[id number] : 1955 69 From: Nohemi khan CRNA PCP: Dr. Fabricio Lemos MD Status :REG [facility] Y Race: C Location: [place] [address] Anesthesia: Postop Eval I Current Vital Signs Temperature: 99.0 F Pulse Rate: 82 Blood Pressure: 109/58 Respiratory Rate: 20 Pulse Ox: 91 Assessment Airway patent: Yes Spontaneous unlabored respirations: No nausea: No Vomiting: No Anesthesia Complication: No Fluid Hydration Crystalloid volume administer (ml): 500 Total IV fluid infused: 500 Progress Note Anesthesia document: Postop Eval 1 completed: Yes 12/12/24 1231 <Electronically signed by Nohemi Perez ace, CRNA> Date _ Nohemi Andres CRNA Cosigner Signature: Date CC: ~ Signed [facility] Work Phone: 1(511) 687-280003-28-2025 Discharge summary Author Yeimi Sorto [facility] Note Date/Time December 12, 2024 12: 24pm [facility] Medical Records Department [address] [place] [address] Instructions for Home/Discharge Instructions 12/12/24 1222 MR#: [id number] Acct: [id number] Name: BETSY RODRIGEZ Rep #:[id number] : 1955 69 From: Yeimi Sorto MD PCP: Dr. Fabricio Lemos MD Status :REG [facility] Discharge Instructions Procedure Port-A-Cath Diet Discharge Diet: Light diet - advance as tolerated Activity May shower in (days): 5 (Keep port site clean and dry x5 days. Neck incision okay to get wet after 1 day. Okay to lower shower and upper sponge bath. OR okay to taper off port site with a Ziploc bag to shower) Lifting Restrictions: No lifting > 15 pounds for 3 days with the arm on the sideof the port Dressing / Incision Call your doctor if your incision/area has: Continuous Slow Oozing, Sudden Increased Bleeding, Increased Pain/ Swelling, Increased Redness, Foul Smelling Discharge and Swelling at the incision site Call your doctor if you observe: Fever of 101 or Higher Change Dressing in: 2 days (2-3 days- port site; ok to remove neck opsite in 1 day) Follow Up Care Please Follow Up With: Yeimi Sorto MD When: In 10 days for permanent suture removal?call office for appointment Test Results: Test results from this visit will be discussed in further detail at your follow- up appointment, if applicable. Discharge Plan Admission Attending Provider: Yeimi Sorto Primary Care Provider: Fabricio Lemos Instructions Print Language: Monegasque Discharge Orders/Prescriptions Prescriptions: Continued (DME) Disability Placard See Rx Instructions .Route .MEDSUPPLY Qty: 1 0RF Rx Instructions: Expires 09/09/2025 albuterol sulfate 90 mcg/actuation HFA aerosol inhaler 2 puff inhalation Q4H PRN (Reason: shortness of breath or wheezing) ondansetron HCl 8 mg tablet 8 mg PO Q8H PRN (Reason: nausea and vomiting) oxycodone 5 mg tablet 10 mg PO Q4H PRN (Reason: pain) levothyroxine 25 MCG tablet 25 mcg PO DAILY gabapentin 400 MG capsule 400 mg PO TID potassium citrate 10 mEq (1,080 mg) tablet extended release 20 meq PO DAILY calcium 600 mg capsule 600 mg PO DAILY fluticasone propionate [Flonase Allergy Relief] 50 mcg/actuation spray,suspension 1 spray intranasal DAILY PRN (Reason: nasal congestion) Rx Instructions: administer into each nostril cholecalciferol (vitamin D3) [Vitamin D3] 25 mcg (1,000 unit) capsule 25 mcg PO DAILY losartan 25 mg tablet 25 mg PO DAILY omeprazole 40 MG capsule,delayed release(DR/EC) 40 mg PO BID docusate sodium 100 mg Capsule 100 mg PO BID PRN (Reason: constipation) Rx Instructions: Hold for diarrhea Referrals / Follow Up: Fabricio Lemos MD [Primary Care Provider] - Disposition Disposition (needs filled in before D/C Order can be placed): Home, Self Care 12/12/24 1224<Electronically signed by Yeimi Sorto MD>Yeimi Sorto MD CC: Dr. Fabricio Lemos MD ~ Signed [facility] Work Phone: 1(435) 222-239103-28-2025 History and physical note Author Yeimi Sorto [facility] Note Date/Time December 12, 2024 11: 40am [facility] Medical Records Department [address] [place] [address] History & Physical Exam 12/12/24 1138 MR#: [id number] Acct: [id number] Name: BETSY RODRIGEZ Rep #:[id number] : 1955 69 From: Yeimi Sorto MD PCP: Dr. Fabricio Lemos MD Status :[facility] Location: [place] [address] History and Physical Date of Admission: 12/12/24 Date of Service: 12/10/24 MR#: [id number] Acct: [id number] Name: BETSY RODRIGEZ Rep #: [id number] : 1955 Provider: Dr. Yeimi Sorto MD Age/Sex: 69/F Location: [facility] Status: Signed Intake Vital Signs 12/09/2509:45 12/09/2510:48 12/11/2511:46 Height 5 ft 3 in 5 ft 3 in 5 ft 3 in Weight: 151 lb 2 oz 151 lb BMI 26.7 26.7 BP 125/73 H 135/71 H Blood Pressure Location Lt brachial Rt brachial Position Sitting Sitting Respiration 16 17 Pulse 77 81 Pulse Source Monitor Monitor Temp 97.8 F Pulse Oximetry (%) 93 93 Oxygen Delivery Method room air room air Intake Visit Reasons: PORT PLACEMENT Chief Complaint: port placement Is patient in pain?: Yes (chronic pain in back and due to cancer) Allergies MEAGAN Inhibitors Allergy (Verified 12/11/24 08:17) Rashcodeine Allergy (Verified 12/11/24 08:17) Vomitingwalnut Allergy (Verified 12/11/24 08:17) Food Allergyprednisone Adverse Reaction (Verified 12/11/24 08:17) LtktdKhcwtqm-AZS-BkK Reductase Inhibitor (Ldfcnoz-Msn-Akf Reductase Inhibitor) Adverse Reaction (Verified 12/11/24 08:17) cramps Medications ?Medication ?Instructions ?Recorded ?Confirmed ?Type levothyroxine 25 mcg tablet 25 mcg PO DAILY thyroid 11/03/17 5 History gabapentin 400 mg capsule 400 mg PO TID nerve pain 07/16/20 History Disability Placard #1 ea 09/15/20 12/10/24 Rx potassium citrate 10 mEq (1,080 20 meq PO DAILY potassium 01/26/2212/11 History mg) tablet,extended release albuterol sulfate 90 mcg/actuation 2 puff inhalation Q4H PRN 06/13/2312/11 History aerosol inhaler shortness of breath or wheezing calcium 600 mg capsule 600 mg PO DAILY supplement 05/28/2411/16 History fluticasone propionate 50 1 spray intranasal DAILY PRN nasal 05/2812/11/24 History mcg/actuation nasal congestion spray,suspension (Flonase Allergy Relief) cholecalciferol (vitamin D3) 25 25 mcg PO DAILY vitamin 11/12/24 5 History mcg (1,000 unit) capsule (Vitamin D3) losartan 25 mg tablet 25 mg PO DAILY blood pressure 11/12/24 0 12/11/24 History ondansetron HCl 8 mg tablet 8 mg PO Q8H PRN nausea and vomiting 11/1512/11/24 History oxycodone 5 mg tablet 10 mg PO Q4H PRN pain 12/02/24 12/11/24 History dexamethasone 1 mg tablet 1 mg PO .Q AM 12/11/24 12/11/24 History docusate sodium 100 mg capsule 100 mg PO BID PRN constipation 12/11/24 12/11/24 History omeprazole 40 mg capsule,delayed 40 mg PO BID gerd 12/11/24 12/11/24 Hist ory release Have you fallen in the past year?: No PFS Medical History (Updated 12/11/24 @ 09:30 by Jeanette Hand) Current use of steroid medication Ambulates with cane Back pain Heartburn On home oxygen therapy Bilateral lower extremity edema High grade neuroendocrine carcinoma of lung Jaundice Regional lymph node metastasis present Metastasis to bone Small cell lung cancer Loss of hearing Wears glasses Wears dentures Post-menopausal Thyroid disease Arthritis High cholesterol DVT (deep venous thrombosis) Injury of back Migraine headache Syncope Difficulty chewing History of hiatal hernia History of ulceration History of diverticulitis Gastric reflux Former smoker Asthma CPAP (continuous positive airway pressure) dependence Leg cramps Shortness of breath on exertion History of pain when walking Hypertension Heart murmur History of echocardiogram History of stress test Cardiology follow-up encounter Bradycardia Chronic respiratory failure with hypoxia Smoking greater than 40 pack years ARMANDO (obstructive sleep apnea) Pulmonary hypertension Bronchiectasis History of staph infection HTN (hypertension) Hypoxia COVID-19 Surgical History Hx of right cataract extraction Hx of left cataract extraction Hx of breast reconstruction Hx of foot surgery Hx of surgical amputation of finger Hx of elbow surgery History of carpal tunnel surgery Hx of vein stripping History of cholecystectomy History of back surgery History of eye surgery History of breast biopsy History of tubal ligation History of History of appendectomy History of tonsillectomy Family History Mother Cancer Hx Lung CA.Father Cancer Hx Lung CA. Social History household members: spouse Smoking Status: Former smoker quit date: 08/17/16 Tobacco: How many years used: 45 alcohol intake: never HPI HPI HPI: 69-year-old female presents for port placement due to neuroendocrine carcinoma of the lung. Patient has been getting treatments currently and her next treatment is planned for next week Sunday. ROS General General: Yes weight change and fatigue; No appetite, colon cancer or breast cancer HEENT HEENT: Yes difficulty swallowing and eye surgery; No eye injury, swollen glands or hoarseness Endo Endocrine: Yes thyroid disease; No diabetes mellitus, thyroid cancer, Hair loss, heat intolerance or cold intolerance Skin Skin: No rash or changing moles Musc Musculoskeletal: Yes back problems and arthritis; No rheumatoid arthritis, gout or joint pain Cardio Cardiovascular: Yes murmur and high blood pressure; No pacemaker, heart disease, atrial fibrillation, heart attack, heart stent, palpitations, shortness of breath with exertion or chest pain Psych Psychiatric: No depression, anxiety or hearing voices Resp Respiratory: Yes shortness of breath, Yes sleep apnea, No cough, No COPD, No asthma, No emphysema and No wheezing Gastro Gastrointestinal: Yes abdominal pain, Yes nausea or vomiting, No diarrhea, No constipation, No blood in stool, Yes acid reflux, Yes hemorrhoids, No ulcers, Nogallbladder problem and No black,tarry stools Fidel Hematologic: No blood thinners, No blood disorders, No bleeding, No anemia and Yes blood clots Additional Details: 20 years ago, legs Neuro Neurologic: No numbness and No tingling Exam Const General: cooperative, healthy appearing, comfortable and no acute distress [facility] Head: normocephalic and atraumatic Neck Neck: supple Chest Other: Palpation of bilateral upper chest normal Resp Effort & Inspection: normal respiratory effort Cardio Rate: regular rate GI Inspection: non-distended Palpation: soft Skin General: no rashes or lesions noted Neuro General: CN's II-XI intact bilaterally Extrem General: normal to inspection Psych Mental Status: mental status grossly normal Attitude: cooperative Assessment and Plan Assessment and Plan (1) Encounter for insertion of venous access port: Status: Acute (2) High grade neuroendocrine carcinoma of lung: Status: Acute Plan I have discussed above with the patient- Port-a-Cath placement. Right possible left IJ Patient has been counseled as to the risks/benefits of the procedure. I have explained the risks of the surgery, including but not limited to: infection, bleeding, injury to any blood vessels/nerves, injury to lungs (such as pneumothorax or hemothorax and need for chest tube), not having any access, nonfunctioning of port due to thrombosis, infection of port, etc. the patient understands and agrees to proceed. I have answered all the patient's questions to the patient?s satisfaction and the patient has no further questions. Yeimi Sorto M.D. Pager: [phone] [facility] [address] [place] [address], [facility], [address] [place] [address] Office: [phone] Coding Level of Care Code Off vis,new,level 3 Diagnoses Encounter for insertion of venous access port Z45.2 High grade neuroendocrine carcinoma of lung C7A.1 Clinical Quality Measures Falls Risk Screening/Assistive Devices Have you fallen in the past year?: No 12/11/24 9806 <Electronically signed by Yeimi Sorto MD> Date Yeimi Sorto MD 12/12/24 1139 <Electronically signed by Yeimi Sorto MD> Cosigner Signature (if applicable): CC: Dr. Fabricio Lemos MD; Dr. Yeimi Sorto MD~ Signed ADDENDUM by Dr. Yeimi Sorto MD on 12/12/24 at 1140 Addendum I have examined the patient and the H&P has been reviewed. There are no clinicalchanges since date of exam. 12/12/24 1140<Electronically signed by eYimi Sorto MD> Cosigner Signature (if applicable): cc: Dr. Fabricio Lemos MD; Dr. Yeimi Sorto MD ~* Signed [facility] Work Phone: [phone]) 469-875103-28-2025 Consult note Author Lennox monika [facility] Note Date/Time December 12, 2024 11: 14[facility] Medical Records Department [address] [place] [id number] Pre-Anesthesia Evaluation 12/12/24 1113 MR#: [id number] Acct: [id number] Name: BETSY RODRIGEZ Rep #:[id number] : 1955 69 From: Lennox Schaefer MD PCP: Dr. Fabricio Lemos MD Status :REG [facility] Y Race: C Location: [place] [address] ASA Classification* ASA Classification ASA Classification: 3 Assessment & Plan Anesthesia* Anesthesia Assessment Anesthesia Assessment: Discussed sedation and/or anesthesia options, risks, benefits, and alternatives with patient/parents/legal guardian/POA. Questions invited. The patient/parents/legal guardian/POA seems to understand and agrees to proceedwith anesthesia plan. Reviewed the physical assessment, medical history, allergy history and patient home medications list prior to surgery/procedure/anesthetic and documented any changes. Performed airway and anesthesia risk assessments. Anesthesia Type Anesthesia Type: MAC Anesthesia Focused Assessment* Temperature: 98.4 F Pulse Rate: 80 Blood Pressure: 130/64 Respiratory Rate: 20 Pulse Ox: 96 Airway Assessment Mouth opens: >3 cm Mallampati Score: II Focused Labs Anesthesia Preop lab: CBC WBC 9.2 K/mm3 (4.4-11.0) 12/09/24 09:57 12/09/24 RBC 3.89 M/mm3 (4.2-5.4) L 12/09/24 09:57 12/09/24 Hgb 11.4 g/dL (12.0-15.0) L 12/09/24 09:57 5 Hct 34.2 % (37-47) L 12/09/24 09:57 12/09/24 Plt Count 87 K/mm3 (150-450) L 12/09/24 09:57 12/09/24 CHEMISTRY Potassium 4.4 mmol/L (3.3-5.1) 12/09/24 09:57 12/09/24 Sodium 138 mmol/L (133-145) 12/09/24 09:57 12/09/24 Magnesium 1.4 mg/dL (1.5-2.2) L 12/09/24 09:57 12/09/24 Phosphorus 3.0 mg/dL (2.7-4.5) 12/09/24 09:57 12/09/24 BUN 7 mg/dL (4-19) 12/09/24 09:57 12/09/24 Creatinine 0.84 mg/dL (0.70-1.20) 12/09/24 09:57 12/09/24 Glucose 134 mg/dL (70-99) H 12/09/24 09:57 12/09/24 POC Glucose 199 mg/dL (70-110) H 08/10/20 17:19 08/10/20 TSH 3.530 uIU/mL (0.300-4.200) 11/13/24 04:15 02/04/10 COAG PT 14.2 SECONDS (11.7-14.9) 11/12/24 10:03 Pre-Assessment Diagnosis/Proposed Procedure Planned Operative Procedure(s): (R) Insertion, Vascular Port right poss left Anesthesia History 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 When Was Last Pacemaker Check QUESTION #4 FULL TEXT: You/Your Family Experience fever (hyperthermia) with Anesthesia Last Oral Intake Last Oral intake: Last Oral Intake NPO since 00:00 12/12/24 10:51 Meds taken in AM with sips of Yes 12/12/24 10:51 water? 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 Female Yes 12/11/24 08:45 HX of Motion Sickness No 12/11/24 08:45 HX of N/V After Surgery No 12/11/24 08:45 Non-Smoker Yes 12/11/24 08:45 Duration of Surgery greater No 12/11/24 08:45 than 60 minutes Number of Risk Factors 2 12/11/24 08:45 PONV Score Moderate Risk 12/11/24 08:45 Height & Weight Height & Weight: Anesthesia: Height & Weight Height 5 ft 3 in 12/12/24 10:51 Weight: 67 kg 12/12/24 10:51 Body Mass Index (BMI) 26.2 12/12/24 10:51 Respiratory Assessment Respiratory Assessment - grounds worker: Respiratory Tract Infection Hx - grounds worker Hx Respiratory Tract Infection No 12/11/24 08:45 STOP Sleep Apnea STOP Sleep Apnea - grounds worker: STOP Sleep Apnea - grounds worker Hx Hypertension Yes: MED 12/11/24 08:45 Hx Sleep Apnea Yes 12/11/24 08:45 CPAP Yes: NON COMPLIANT 12/11/24 08:45 BIPAP No 12/11/24 08:45 Do you snore loudly (louder than talking or can be heard Do you often feel tired/ fatigued/ sleepy during daytime? Has anyone observed you stop breathing during sleep? STOP Results Positive 12/11/24 08:45 QUESTION #5 FULL TEXT : Do you snore loudly (louder than talking or can be heard through closed doors)? 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 Specify any problems Hx of Preganancy in last 3 No 12/11/24 08:45 Months Nurse Filling Out Transfusion JZOLLINGE 12/11/24 08:45 & Questions: Date: 12/11/24 12/11/24 08:45 Time: 08:48 12/11/24 08:45 Patient unable to answer at this time (ie. confused, unrespo /Reproduction History /Reproductive History - grounds worker: /Reproductive Hx- grounds worker Hx Now No 12/11/24 08:45 Gestational Age (in weeks): EDC: Hx Hx Para Hx Section SAB No 12/11/24 08:45 Active Medications Active Medications: Current Medications Generic Name Dose Route Start Last Admin Trade Name Freq PRN Reason Stop Dose Admin Cefazolin Sodium 2 gm/ N/A 20 mls @ 400 mls/hr 12/12/24 12:30 IV 12/12/24 12:32 PREOP ONE Sodium Chloride 1,000 mls @ 15 mls/hr 12/12/24 11:00 12/12/24 10:57 IV 15 mls/hr .Q48H DIAZ Administration PFSH Medical History Current use of steroid medication Ambulates with cane Back pain Heartburn On home oxygen therapy Bilateral lower extremity edema High grade neuroendocrine carcinoma of lung Jaundice Regional lymph node metastasis present Metastasis to bone Small cell lung cancer Loss of hearing Wears glasses Wears dentures Post-menopausal Thyroid disease Arthritis High cholesterol DVT (deep venous thrombosis) Injury of back Migraine headache Syncope Difficulty chewing History of hiatal hernia History of ulceration History of diverticulitis Gastric reflux Former smoker Asthma CPAP (continuous positive airway pressure) dependence Leg cramps Shortness of breath on exertion History of pain when walking Hypertension Heart murmur History of echocardiogram History of stress test Cardiology follow-up encounter Bradycardia Chronic respiratory failure with hypoxia Smoking greater than 40 pack years ARMANDO (obstructive sleep apnea) Pulmonary hypertension Bronchiectasis History of staph infection HTN (hypertension) Hypoxia COVID-19 Home Medications ?Medication ?Instructions ?Recorded ?Last Taken ?Type levothyroxine 25 mcg tablet 25 mcg PO DAILY thyroid 12/12/24 History gabapentin 400 mg capsule 400 mg PO TID nerve pain 12/12/24 History Disability Placard #1 ea 09/15/20 Unknown Rx potassium citrate 10 mEq (1,080 20 meq PO DAILY potass ium 01/26/22 12/11/24 History mg) tablet,extended release albuterol sulfate 90 mcg/actuation 2 puff inhalation Q 4H PRN 06/13/23 Unknown History aerosol inhaler shortness of breath or wheez ing calcium 600 mg capsule 600 mg PO DAILY supplement 0 05/28/24 12/11/24 History fluticasone propionate 50 1 spray intranasal DAILY PRN nasal 05/28/24 Unknown History mcg/actuation nasal congestion spray,suspension (Flonase Allergy Relief) cholecalciferol (vitamin D3) 25 25 mcg PO DAILY vitami n 11/12/24 12/11/24 History mcg (1,000 unit) capsule (Vitamin D3) losartan 25 mg tablet 25 mg PO DAILY blood pressur e 11/12/24 12/12/24 History ondansetron HCl 8 mg tablet 8 mg PO Q8H PRN nausea and vomiting 11/24/24 Unknown History oxycodone 5 mg tablet 10 mg PO Q4H PRN pain 12/11/24 History docusate sodium 100 mg capsule 100 mg PO BID PRN const ipation 12/11/24 Unknown History omeprazole 40 mg capsule,delayed 40 mg PO BID gerd 12/12/24 History release Allergy/AdvReac Type Severity Reaction Status Date / Time MEAGAN Inhibitors Allergy Rash Verified 12/12/24 10:47 codeine Allergy Vomiting Verified 12/12/24 10:47 walnut Allergy Food Verified 12/12/24 10:47 Allergy prednisone AdvReac Other Verified 12/12/24 10:47 Qysccmg-VBQ-JdV Reductase AdvReac cramps Verified 12/12/24 10:47 Inhibitor (Ydsxstb-Pbr-Idn Reductase Inhibitor) Family History Mother Cancer Hx Lung CA. Father Cancer Hx Lung CA. Surgical History Hx of right cataract extraction Hx of left cataract extraction Hx of breast reconstruction Hx of foot surgery Hx of surgical amputation of finger Hx of elbow surgery History of carpal tunnel surgery Hx of vein stripping History of cholecystectomy History of back surgery History of eye surgery History of breast biopsy History of tubal ligation History of History of appendectomy History of tonsillectomy Social History household members: spouse Smoking Status: Former smoker quit date: 08/17/16 Tobacco: How many years used: 45 alcohol intake: never Review of Systems (Anesthesia) ROS Narrative System reviewed and no additional complaints, except as documented. 12/12/24 1114 <Electronically signed by Lennox Schaefer MD > Date _ Lennox Schaefer MD Cosigner Signature: Date CC: ~ Signed [facility] Work Phone: 1(804) 199-697603-28-2025 Radiology Diagnostic study note [facility] Imaging Services [address] [place] [address] Chest 1 View (Portable) MR#: [id number] Acct: [id number] Name: BETSY RODRIGEZ Rep #: [id number] : 1955 F 69 From: Tasha Fajardo MD PCP: Dr. Fabricio Lemos MD Status: REG [facility] Study:Chest 1 View (Portable) Date of Exam: 12/12/24 Exam# [id number] Ordering Dr: Yeimi Sorto MD EXAM: XR Chest, 1 View CLINICAL INDICATION: PORT TECHNIQUE: Frontal view of the chest. COMPARISON: No relevant prior studies available. FINDINGS: LUNGS AND PLEURAL SPACES: Pulmonary congestion and edema. Pneumonia cannot be excluded. HEART: Unremarkable. No cardiomegaly. MEDIASTINUM: Unremarkable. Normal mediastinal contour. BONES/JOINTS: Unremarkable. No acute fracture. TUBES, LINES AND DEVICES: Right-sided Mediport with the distal tip in the SVC. No pneumothorax. RAD/Chest 1 View (Portable) IMPRESSION: Pulmonary congestion and edema. Pneumonia cannot be excluded. Reading Location: [facility] CC: Dr. Fabricio Lemos MD; Dr. Yeimi Sorto MD ~ Hot Box Operator: Signed [facility]03-28-2025 Procedure note [facility] Medical Records Department [address] [place] [address] Operative Report 12/12/24 1219 MR#: [id number] Acct: [id number] Name: BETSY RODRIGEZ Rep #:[id number] : 1955 69 From: Yeimi Sorto MD PCP: Dr. Fabricio Leoms MD Status :[facility] Location: [place] [address] Operative Report (Standard) Operative Information Date of Procedure: 12/12/24 Pre-Operative Diagnosis: z45.2, lung cancer Post-Operative Diagnosis: Same Surgery/Procedure Performed: 1. Placement of right IJ Port-A-Cath 2. Use of fluoroscopy 3. Use of ultrasound imaging technologist: No Type of Anesthesia: MAC/Supplemental RN Documented Start/Stop Times: Operation Date: 12/12/24 12:30 Case Time Into Pre-Op 12/12/24 10:50 Anesthesia Start 12/12/24 11:40 Into Room 12/12/24 11:40 Procedure Start 12/12/24 11:55 Procedure End 12/12/24 12:17 Anesthesia End 12/12/24 12:21 Out of Room 12/12/24 12:21 Procedure Start Time: 11:55 Procedure Stop Time: 12:17 Select all DRAINS/GRAFTS/IMPLANTS that apply: Implanted device Implanted device details: Bard PowerPort isp M.R.I. 6Fr Lot [id number] Special Medications: Ancef 2 g IV x 1 Estimated Blood Loss: < 10 cc Specimen collected: No Description of surgery: After informed consent was given, the patient was brought to the operating room and placed in the supine position. Appropriate time out protocol was followed. Patient was then given IV conscious sedation for anesthesia. The patient's right upper chest and neck were then prepped with a surgical skinpreparation and sterile surgical drapes were placed. After proper landmarks were ascertained, the skin at the upper right chest area was then infiltrated with 1:1 mixture of 1% lidocaine with epinephrine and 0.5% marcaine. A needle trocar was then inserted into the right internal jugular vein with ultrasound guidance-multiple vessels were viewed with u/s and the right IJ was chosen-- and there was good aspiration of venous blood. A wire was then threaded into the needle trocar and this was visualized under fluoroscopy to ensure that the wire was in the superior vena cava. Once this was done, then the needle trocar was removed. A small skin edwin was made with an 11 blade knife at the wire entrance site. The dilator with the introducer sheath attached was then placed over the wire into the right internal jugular vein viathe Seldinger technique and this was visualized under fluoroscopy. The dilator and sheath were in proper position as visualized by fluoroscopy. A subcutaneous pocket was then created caudad to the catheter insertion site. Atransverse skin incision was made after the skin and subcutaneous tissues were infiltrated with local anesthetic. Blunt dissection was then used to create a space large enough for placement of the subcutaneous port. The catheter was thentunneled into the subcutaneous pocket. The wire and dilator were then removed. The catheter was then threaded into theintroducer sheath and was positioned with its tip at the junction of the superior vena cava and the right atrium as visualized under fluoroscopy. The excess catheter was transected. The catheter was then attached to the s ubcutaneous port using manufacturers guidelines. The catheter was flushed with a heparin saline mixture prior to placement. Hemostasis was carefully controlled with electrocautery. The port was sutured to the subcutaneous fasciausing 2-0 Vicryl suture at two sites. The port was then placed in the subcutaneous pocket. The incision were reapproximated with interrupted subdermal 3-0 vicryl sutures. The skin was reapproximated with 3-0 nylon suture in a interrupted fashion. Steristrips were used for reinforcement of the skin closure at IJ insertion siteand a sterile opsite dressings were applied. The patient tolerated the procedurewell. Surgical Findings: See op report Complications Complications: No 12/12/24 1255 Cosigner Signature (if applicable): CC: Dr. Fabricio Lemos MD; Dr. Yeimi Sorto MD~ Signed [facility]03-28-2025 Consult note [facility] Medical Records Department [address] [place] [address] Anesthesia Postop Eval II 12/12/24 1233 MR#: [id number] Acct: [id number] Name: BETSY RODRIGEZ Rep #:[id number] : 1955 69 From: Lennox Schaefer MD PCP: Dr. 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 Anesthesia Postop Eval I: Fluid Summary Crystalloid volume administer 500 12/12/24 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 (ml) Colloids volume administered ( ml) Blood Product volume administered (ml) Total IV fluid infused 500 12/12/24 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 Anesthesia Postop Eval I: Summary Notes Anesthesia Complication No 12/12/24 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 Fabricio Lemos MD Status :[facility] Y Race: C Location: [place] [address] Anesthesia: Postop Eval I Current Vital Signs Temperature: 99.0 F Pulse Rate: 82 Blood Pressure: 109/58 Respiratory Rate: 20 Pulse Ox: 91 Assessment Airway patent: Yes Spontaneous unlabored respirations: No nausea: No Vomiting: No Anesthesia Complication: No Fluid Hydration Crystalloid volume administer (ml): 500 Total IV fluid infused: 500 Progress Note Anesthesia document: Postop Eval 1 completed: Yes 12/12/24 1231 meagan SKIVING MACHINE OPERATOR> Date _ Nohemi Andres CRNA Cosigner Signature: Date CC: ~ Signed [facility]03-28-2025 Discharge summary [facility] Medical Records Department [address] [place] [address] Instructions for Home/Discharge Instructions 12/12/24 1222 MR#: [id number] Acct: [id number] Name: BETSY RODRIGEZ Rep #:[id number] : 1955 69 From: Yeimi Sorto MD PCP: Dr. Fabricio Lemos MD Status :REG [facility] Discharge Instructions Procedure Port-A-Cath Diet Discharge Diet: Light diet - advance as tolerated Activity May shower in (days): 5 (Keep port site clean and dry x5 days. Neck incision okay to get wet after 1 day. Okay to lower shower and upper sponge bath. OR okay to taper off port site with a Ziploc bag to shower) Lifting Restrictions: No lifting > 15 pounds for 3 days with the arm on the sideof the port Dressing / Incision Call your doctor if your incision/area has: Continuous Slow Oozing, Sudden Increased Bleeding, Increased Pain/ Swelling, Increased Redness, Foul Smelling Discharge and Swelling at the incision site Call your doctor if you observe: Fever of 101 or Higher Change Dressing in: 2 days (2-3 days- port site; ok to remove neck opsite in 1 day) Follow Up Care Please Follow Up With: Yeimi Sorto MD When: In 10 days for permanent suture removal?call office for appointment Test Results: Test results from this visit will be discussed in further detail at your follow- up appointment, if applicable. Discharge Plan Admission Attending Provider: Yeimi Sorto Primary Care Provider: Fabricio Lemos Instructions Print Language: Monegasque Discharge Orders/Prescriptions Prescriptions: Continued (DME) Disability Placard See Rx Instructions .Route .MEDSUPPLY Qty: 1 0RF Rx Instructions: Expires 09/09/2025 albuterol sulfate 90 mcg/actuation HFA aerosol inhaler 2 puff inhalation Q4H PRN (Reason: shortness of breath or wheezing) ondansetron HCl 8 mg tablet 8 mg PO Q8H PRN (Reason: nausea and vomiting) oxycodone 5 mg tablet 10 mg PO Q4H PRN (Reason: pain) levothyroxine 25 MCG tablet 25 mcg PO DAILY gabapentin 400 MG capsule 400 mg PO TID potassium citrate 10 mEq (1,080 mg) tablet extended release 20 meq PO DAILY calcium 600 mg capsule 600 mg PO DAILY fluticasone propionate [Flonase Allergy Relief] 50 mcg/actuation spray,suspension 1 spray intranasal DAILY PRN (Reason: nasal congestion) Rx Instructions: administer into each nostril cholecalciferol (vitamin D3) [Vitamin D3] 25 mcg (1,000 unit) capsule 25 mcg PO DAILY losartan 25 mg tablet 25 mg PO DAILY omeprazole 40 MG capsule,delayed release(DR/EC) 40 mg PO BID docusate sodium 100 mg Capsule 100 mg PO BID PRN (Reason: constipation) Rx Instructions: Hold for diarrhea Referrals / Follow Up: Fabricio Lemos MD [Primary Care Provider] - Disposition Disposition (needs filled in before D/C Order can be placed): Home, Self Care 12/12/24 1224Yeimi Sorto MD CC: Dr. Fabricio Lemos MD ~ Signed [facility]03-28-2025 History and physical note [facility] Medical Records Department [address] [place] [address] History & Physical Exam 12/12/24 1138 MR#: [id number] Acct: [id number] Name: BETSY RODRIGEZ Rep #:[id number] : 1955 69 From: Yeimi Sorto MD PCP: Dr. Fabricio Lemos MD Status :[facility] Location: [place] [address] History and Physical Date of Admission: 12/12/24 Date of Service: 12/10/24 MR#: [id number] Acct: [id number] Name: BETSY RODRIGEZ Rep #: [id number] : 1955 Provider: Dr. Yeimi Sorto MD Age/Sex: 69/F Location: [facility] Status: Signed Intake Vital Signs 12/09/2509:45 12/09/2510:48 12/11/2511:46 Height 5 ft 3 in 5 ft 3 in 5 ft 3 in Weight: 151 lb 2 oz 151 lb BMI 26.7 26.7 BP 125/73 H 135/71 H Blood Pressure Location Lt brachial Rt brachial Position Sitting Sitting Respiration 16 17 Pulse 77 81 Pulse Source Monitor Monitor Temp 97.8 F Pulse Oximetry (%) 93 93 Oxygen Delivery Method room air room air Intake Visit Reasons: PORT PLACEMENT Chief Complaint: port placement Is patient in pain?: Yes (chronic pain in back and due to cancer) Allergies MEAGAN Inhibitors Allergy (Verified 12/11/24 08:17) Rashcodeine Allergy (Verified 12/11/24 08:17) Vomitingwalnut Allergy (Verified 12/11/24 08:17) Food Allergyprednisone Adverse Reaction (Verified 12/11/24 08:17) MeytgDopsipp-SAO-LuO Reductase Inhibitor (Vsdwlfx-Vvv-Zrm Reductase Inhibitor) Adverse Reaction (Verified 12/11/24 08:17) cramps Medications ?Medication ?Instructions ?Recorded ?Confirmed ?Type levothyroxine 25 mcg tablet 25 mcg PO DAILY thyroid 11/03/17 5 History gabapentin 400 mg capsule 400 mg PO TID nerve pain 07/16/20 History Disability Placard #1 ea 09/15/20 12/10/24 Rx potassium citrate 10 mEq (1,080 20 meq PO DAILY potassium 01/26/2212/11 History mg) tablet,extended release albuterol sulfate 90 mcg/actuation 2 puff inhalation Q4H PRN 06/13/2312/11 History aerosol inhaler shortness of breath or wheezing calcium 600 mg capsule 600 mg PO DAILY supplement 05/28/2411/16 History fluticasone propionate 50 1 spray intranasal DAILY PRN nasal 05/2812/11/24 History mcg/actuation nasal congestion spray,suspension (Flonase Allergy Relief) cholecalciferol (vitamin D3) 25 25 mcg PO DAILY vitamin 11/12/24 5 History mcg (1,000 unit) capsule (Vitamin D3) losartan 25 mg tablet 25 mg PO DAILY blood pressure 11/12/24 0 12/11/24 History ondansetron HCl 8 mg tablet 8 mg PO Q8H PRN nausea and vomiting 11/1512/11/24 History oxycodone 5 mg tablet 10 mg PO Q4H PRN pain 12/02/24 12/11/24 History dexamethasone 1 mg tablet 1 mg PO .Q AM 12/11/24 12/11/24 History docusate sodium 100 mg capsule 100 mg PO BID PRN constipation 12/11/24 12/11/24 History omeprazole 40 mg capsule,delayed 40 mg PO BID gerd 12/11/24 12/11/24 Hist ory release Have you fallen in the past year?: No PFSH Medical History (Updated 12/11/24 @ 09:30 by Jeanette Yazan) Current use of steroid medication Ambulates with cane Back pain Heartburn On home oxygen therapy Bilateral lower extremity edema High grade neuroendocrine carcinoma of lung Jaundice Regional lymph node metastasis present Metastasis to bone Small cell lung cancer Loss of hearing Wears glasses Wears dentures Post-menopausal Thyroid disease Arthritis High cholesterol DVT (deep venous thrombosis) Injury of back Migraine headache Syncope Difficulty chewing History of hiatal hernia History of ulceration History of diverticulitis Gastric reflux Former smoker Asthma CPAP (continuous positive airway pressure) dependence Leg cramps Shortness of breath on exertion History of pain when walking Hypertension Heart murmur History of echocardiogram History of stress test Cardiology follow-up encounter Bradycardia Chronic respiratory failure with hypoxia Smoking greater than 40 pack years ARMANDO (obstructive sleep apnea) Pulmonary hypertension Bronchiectasis History of staph infection HTN (hypertension) Hypoxia COVID-19 Surgical History Hx of right cataract extraction Hx of left cataract extraction Hx of breast reconstruction Hx of foot surgery Hx of surgical amputation of finger Hx of elbow surgery History of carpal tunnel surgery Hx of vein stripping History of cholecystectomy History of back surgery History of eye surgery History of breast biopsy History of tubal ligation History of History of appendectomy History of tonsillectomy Family History Mother Cancer Hx Lung CA.Father Cancer Hx Lung CA. Social History household members: spouse Smoking Status: Former smoker quit date: 08/17/16 Tobacco: How many years used: 45 alcohol intake: never HPI HPI HPI: 69-year-old female presents for port placement due to neuroendocrine carcinoma of the lung. Patienthas been getting treatments currently and her next treatment is planned for next week Sunday. ROS General General: Yes weight change and fatigue; No appetite, colon cancer or breast cancer HEENT HEENT: Yes difficulty swallowing and eye surgery; No eye injury, swollen glands or hoarseness Endo Endocrine: Yes thyroid disease; No diabetes mellitus, thyroid cancer, Hair loss, heat intolerance or cold intolerance Skin Skin: No rash or changing moles Musc Musculoskeletal: Yes back problems and arthritis; No rheumatoid arthritis, gout or joint pain Cardio Cardiovascular: Yes murmur and high blood pressure; No pacemaker, heart disease, atrial fibrillation, heart attack, heart stent, palpitations, shortness of breath with exertion or chest pain Psych Psychiatric: No depression, anxiety or hearing voices Resp Respiratory: Yes shortness of breath, Yes sleep apnea, No cough, No COPD, No asthma, No emphysema and No wheezing Gastro Gastrointestinal: Yes abdominal pain, Yes nausea or vomiting, No diarrhea, No constipation, No blood in stool, Yes acid reflux, Yes hemorrhoids, No ulcers, Nogallbladder problem and No black,tarry stools Fidel Hematologic: No blood thinners, No blood disorders, No bleeding, No anemia and Yes blood clots Additional Details: 20 years ago, legs Neuro Neurologic: No numbness and No tingling Exam Const General: cooperative, healthy appearing, comfortable and no acute distress HENMT Head: normocephalic and atraumatic Neck Neck: supple Chest Other: Palpation of bilateral upper chest normal Resp Effort & Inspection: normal respiratory effort Cardio Rate: regular rate GI Inspection: non-distended Palpation: soft Skin General: no rashes or lesions noted Neuro General: CN's II-XI intact bilaterally Extrem General: normal to inspection Psych Mental Status: mental status grossly normal Attitude: cooperative Assessment and Plan Assessment and Plan (1) Encounter for insertion of venous access port: Status: Acute (2) High grade neuroendocrine carcinoma of lung: Status: Acute Plan I have discussed above with the patient- Port-a-Cath placement. Right possible left IJ Patient has been counseled as to the risks/benefits of the procedure. I have explained the risks ofthe surgery, including but not limited to: infection, bleeding, injury to any blood vessels/nerves,injury to lungs (such as pneumothorax or hemothorax and need for chest tube), not having any access, nonfunctioning of port due to thrombosis, infection of port, etc. the patient understands and agrees to proceed. I have answered all the patient's questions to the patient?s satisfaction and the patient has no further questions. Yeimi Sorto M.D. Pager: [phone] [facility] [address] [place] [address], [address] [place] [address] Office: [phone] Coding Level of Care Code Off vis,new,level 3 Diagnoses Encounter for insertion of venous access port Z45.2 High grade neuroendocrine carcinoma of lung C7A.1 Clinical Quality Measures Falls Risk Screening/Assistive Devices Have you fallen in the past year?: No 12/11/24 1816 Date Yeimi Sorto MD 12/12/24 1139 Cosigner Signature (if applicable): CC: Dr. Fabricio Lemos MD; Dr. Yeimi Sorto MD~ Signed ADDENDUM by Dr. Yeimi Sorto MD on 12/12/24 at 1140 Addendum I have examined the patient and the H&P has been reviewed. There are no clinicalchanges since date of exam. 12/12/24 1140 Cosigner Signature (if applicable): cc: Dr. Fabricio Lemos MD; Dr. Yeimi Sorto MD ~* Signed [facility]03-28-[address] [facility]03-28-2025 Consult note [facility] Medical Records Department [address] [place] [id number] Pre-Anesthesia Evaluation 12/12/24 1113 MR#: [id number] Acct: [id number] Name: BETSY RODRIGEZ Rep #:[id number] : 1955 69 From: Lennox Schaefer MD PCP: Dr. Fabricio Lemos MD Status :REG SDC Y Race: C Location: [place] [address] ASA Classification* ASA Classification ASA Classification: 3 Assessment & Plan Anesthesia* Anesthesia Assessment Anesthesia Assessment: Discussed sedation and/or anesthesia options, risks, benefits, and alternatives with patient/parents/legal guardian/POA. Questions invited. The patient/parents/legal guardian/POA seems to understand and agrees to proceedwith anesthesia plan. Reviewed the physical assessment, medical history, allergy history and patient home medications list prior to surgery/procedure/anesthetic and documented any changes. Performed airway and anesthesia risk assessments. Anesthesia Type Anesthesia Type: MAC Anesthesia Focused Assessment* Temperature: 98.4 F Pulse Rate: 80 Blood Pressure: 130/64 Respiratory Rate: 20 Pulse Ox: 96 Airway Assessment Mouth opens: >3 cm Mallampati Score: II Focused Labs Anesthesia Preop lab: CBC WBC 9.2 K/mm3 (4.4-11.0) 12/09/24 09:57 12/09/24 RBC 3.89 M/mm3 (4.2-5.4) L 12/09/24 09:57 12/09/24 Hgb 11.4 g/dL (12.0-15.0) L 12/09/24 09:57 5 Hct 34.2 % (37-47) L 12/09/24 09:57 12/09/24 Plt Count 87 K/mm3 (150-450) L 12/09/24 09:57 12/09/24 CHEMISTRY Potassium 4.4 mmol/L (3.3-5.1) 12/09/24 09:57 12/09/24 Sodium 138 mmol/L (133-145) 12/09/24 09:57 12/09/24 Magnesium 1.4 mg/dL (1.5-2.2) L 12/09/24 09:57 12/09/24 Phosphorus 3.0 mg/dL (2.7-4.5) 12/09/24 09:57 12/09/24 BUN 7 mg/dL (4-19) 12/09/24 09:57 12/09/24 Creatinine 0.84 mg/dL (0.70-1.20) 12/09/24 09:57 12/09/24 Glucose 134 mg/dL (70-99) H 12/09/24 09:57 12/09/24 POC Glucose 199 mg/dL (70-110) H 08/10/20 17:19 08/10/20 TSH 3.530 uIU/mL (0.300-4.200) 11/13/24 04:15 10/19 04/10 COAG PT 14.2 SECONDS (11.7-14.9) 11/12/24 10:03 Pre-Assessment Diagnosis/Proposed Procedure Planned Operative Procedure(s): (R) Insertion, Vascular Port right poss left Anesthesia History 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 When Was Last Pacemaker Check QUESTION #4 FULL TEXT: You/Your Family Experience fever (hyperthermia) with Anesthesia Last Oral Intake Last Oral intake: Last Oral Intake NPO since 00:00 12/12/24 10:51 Meds taken in AM with sips of Yes 12/12/24 10:51 water? 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 Female Yes 12/11/24 08:45 HX of Motion Sickness No 12/11/24 08:45 HX of N/V After Surgery No 12/11/24 08:45 Non-Smoker Yes 12/11/24 08:45 Duration of Surgery greater No 12/11/24 08:45 than 60 minutes Number of Risk Factors 2 12/11/24 08:45 PONV Score Moderate Risk 12/11/24 08:45 Height & Weight Height & Weight: Anesthesia: Height & Weight Height 5 ft 3 in 12/12/24 10:51 Weight: 67 kg 12/12/24 10:51 Body Mass Index (BMI) 26.2 12/12/24 10:51 Respiratory Assessment Respiratory Assessment - grounds worker: Respiratory Tract Infection Hx - grounds worker Hx Respiratory Tract Infection No 12/11/24 08:45 STOP Sleep Apnea STOP Sleep Apnea - grounds worker: STOP Sleep Apnea - grounds worker Hx Hypertension Yes: MED 12/11/24 08:45 Hx Sleep Apnea Yes 12/11/24 08:45 CPAP Yes: NON COMPLIANT 12/11/24 08:45 BIPAP No 12/11/24 08:45 Do you snore loudly (louder than talking or can be heard Do you often feel tired/ fatigued/ sleepy during daytime? Has anyone observed you stop breathing during sleep? STOP Results Positive 12/11/24 08:45 QUESTION #5 FULL TEXT : Do you snore loudly (louder than talking or can be heard through closeddoors)? 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 Specify any problems Hx of Preganancy in last 3 No 12/11/24 08:45 Months Nurse Filling Out Transfusion JZOLLINGE 12/11/24 08:45 & Questions: Date: 12/11/24 12/11/24 08:45 Time: 08:48 12/11/24 08:45 Patient unable to answer at this time (ie. confused, unrespo /Reproduction History /Reproductive History - grounds worker: /Reproductive Hx- grounds worker Hx Now No 12/11/24 08:45 Gestational Age (in weeks): EDC: Hx Hx Para Hx Section SAB No 12/11/24 08:45 Active Medications Active Medications: Current Medications Generic Name Dose Route Start Last Admin Trade Name Freq PRN Reason Stop Dose Admin Cefazolin Sodium 2 gm/ N/A 20 mls @ 400 mls/hr 12/12/24 12:30 IV 12/12/24 12:32 PREOP ONE Sodium Chloride 1,000 mls @ 15 mls/hr 12/12/24 11:00 12/12/24 10:57 IV 15 mls/hr .Q48H DIAZ Administration PFSH Medical History Current use of steroid medication Ambulates with cane Back pain Heartburn On home oxygen therapy Bilateral lower extremity edema High grade neuroendocrine carcinoma of lung Jaundice Regional lymph node metastasis present Metastasis to bone Small cell lung cancer Loss of hearing Wears glasses Wears dentures Post-menopausal Thyroid disease Arthritis High cholesterol DVT (deep venous thrombosis) Injury of back Migraine headache Syncope Difficulty chewing History of hiatal hernia History of ulceration History of diverticulitis Gastric reflux Former smoker Asthma CPAP (continuous positive airway pressure) dependence Leg cramps Shortness of breath on exertion History of pain when walking Hypertension Heart murmur History of echocardiogram History of stress test Cardiology follow-up encounter Bradycardia Chronic respiratory failure with hypoxia Smoking greater than 40 pack years ARMANDO (obstructive sleep apnea) Pulmonary hypertension Bronchiectasis History of staph infection HTN (hypertension) Hypoxia COVID-19 Home Medications ?Medication ?Instructions ?Recorded ?Last Taken ?Type levothyroxine 25 mcg tablet 25 mcg PO DAILY thyroid 12/12/24 History gabapentin 400 mg capsule 400 mg PO TID nerve pain 12/12/24 History Disability Placard #1 ea 09/15/20 Unknown Rx potassium citrate 10 mEq (1,080 20 meq PO DAILY potass ium 01/26/22 12/11/24 History mg) tablet,extended release albuterol sulfate 90 mcg/actuation 2 puff inhalation Q 4H PRN 06/13/23 Unknown History aerosol inhaler shortness of breath or wheez ing calcium 600 mg capsule 600 mg PO DAILY supplement 0 05/28/24 12/11/24 History fluticasone propionate 50 1 spray intranasal DAILY PRN nasal 05/28/24 Unknown History mcg/actuation nasal congestion spray,suspension (Flonase Allergy Relief) cholecalciferol (vitamin D3) 25 25 mcg PO DAILY vitami n 11/12/24 12/11/24 History mcg (1,000 unit) capsule (Vitamin D3) losartan 25 mg tablet 25 mg PO DAILY blood pressur e 11/12/24 12/12/24 History ondansetron HCl 8 mg tablet 8 mg PO Q8H PRN nausea and vomiting 11/24/24 Unknown History oxycodone 5 mg tablet 10 mg PO Q4H PRN pain 12/11/24 History docusate sodium 100 mg capsule 100 mg PO BID PRN const ipation 12/11/24 Unknown History omeprazole 40 mg capsule,delayed 40 mg PO BID gerd 12/12/24 History release Allergy/AdvReac Type Severity Reaction Status Date / Time MEAGAN Inhibitors Allergy Rash Verified 12/12/24 10:47 codeine Allergy Vomiting Verified 12/12/24 10:47 walnut Allergy Food Verified 12/12/24 10:47 Allergy prednisone AdvReac Other Verified 12/12/24 10:47 Agyiwpt-GKJ-DwJ Reductase AdvReac cramps Verified 12/12/24 10:47 Inhibitor (Wqbsnel-Mcz-Pxz Reductase Inhibitor) Family History Mother Cancer Hx Lung CA. Father Cancer Hx Lung CA. Surgical History Hx of right cataract extraction Hx of left cataract extraction Hx of breast reconstruction Hx of foot surgery Hx of surgical amputation of finger Hx of elbow surgery History of carpal tunnel surgery Hx of vein stripping History of cholecystectomy History of back surgery History of eye surgery History of breast biopsy History of tubal ligation History of History of appendectomy History of tonsillectomy Social History household members: spouse Smoking Status: Former smoker quit date: 08/17/16 Tobacco: How many years used: 45 alcohol intake: never Review of Systems (Anesthesia) ROS Narrative System reviewed and no additional complaints, except as documented. 12/12/24 1114 > Date _ Lennox Schaefer MD Cosigner Signature: Date CC: ~ Signed [facility]03-01-[address] [facility]02-28-[address] [facility]02-26-2025 NoteHNO ID: [id number] Author: GIRISH LEMOS MD Service: ? Author Type: Physician Type: Progress Notes Filed: 11/12/2024 09:17 Note Text: Chief Complaint Patient presents with: Follow Up: 4 week follow up Diarrhea Weight Problem: Weight loss down approx 7 lbs in 1 week Fatigue: weakness Sleep Problem Abdominal Pain: Continues- PET scan completed yesterday HPI Betsy Rodrigez is a 69 year old female who presents here today for Above Complaints. Accompanied today by her . Daughter Yenifer on the phone. Patient recently found to have hepatic masses and left upper lobe mass on CT scans. Has been evaluated by pulmonology Roxann Gomez who recommended PET scan which was completed yesterday. Results not available. Also saw Dr. Robbins on 11/05 who recommended liver biopsy after discussing with IR, but patient did not want to schedule at that time. Today, states that she continues to have bilateral upper abdominal pain up to 06/26, nausea, loss of appetite, watery/loose diarrhea with 4-6 episodes per day, BRBRP with blood on TP, 4 lb weight loss in last week. States she feels warmer today than normal. Eating only 1 small meal per day. Taking zofran for nausea and imodium for diarrhea which is not helping. Has [place] for her back which she has been taking for her abdominal pain without much improvement. Needing to take [place] more than prescribed. Past medical history, appointments, medications, allergies reviewed. Previous Medical History PAST MEDICAL HISTORY Diagnosis Date Anxiety with depression Chronic back pain Chronic kidney disease (CKD), stage III (moderate) (HCC) Colon polyp tubular adenoma [address] 07/16 to 08/17 DDD (degenerative disc disease), lumbar seeing Dr. Johnson Dysphagia Dr. Stiles Ectopic 1991 GERD (gastroesophageal reflux disease) History of prediabetes Hyperlipidemia Hypertension Hypothyroidism Obesity (BMI 30.0-34.9) Other pulmonary embolism without acute cor pulmonale (HCC) Pneumonia due to [facility] virus Requiring intubation Previous Surgical History PAST SURGICAL HISTORY Procedure Laterality Date APPENDECTOMY 1966 BREAST LUMPECTOMY HX Bilateral BREAST RECONSTRUCTION Right SECTION HX 1973, 1975 CHOLECYSTECTOMY 2016 COLONOSCOPY 2016 repeat in 3 years, Dr. Stiles LYSIS OF ADHESIONS 1978 PAST SURGICAL HISTORY OF 1981 tubal reconstruction PAST SURGICAL HISTORY OF 2013 back surgery, microdiscectomy? PAST SURGICAL HISTORY OF Bilateral vericose vein stripping PAST SURGICAL HISTORY OF Bilateral heel spurs PAST SURGICAL HISTORY OF Bilateral surgery for epicondylitis PAST SURGICAL HISTORY OF cyst removal from eyelids TONSILLECTOMY HX 1957 Family History FAMILY HISTORY Problem Relation Age of Onset Cancer Mother lung Hypertension Mother Cancer Father lung No Known Problems Sister Cancer Brother lung No Known Problems Brother No Known Problems Brother Stroke Maternal Grandmother or [place], patient unsure Coronary Artery Disease Maternal Grandfather Alcohol abuse Paternal Grandfather Patient Allergies ALLERGIES Allergen Reactions Meagan Inhibitors Rash Codeine Vomiting, Other: See Comments Headache Remeron [Mirtazapin* Other: See Comments Fatigue Jsebnvh-Kjm-Mkg Red* Myalgia Michie Unknown Zetia [Ezetimibe] Myalgia Current Medications Current Outpatient Medications on File Prior to Visit Medication Sig ondansetron orally disintegrating (ZOFRAN ODT) 4 mg disintegrating tablet Take 1 tablet by mouth every 6 hours as needed for nausea/vomiting. losartan (COZAAR) 50 mg tablet Take 1 tablet by mouth once daily. fluticasone (FLONASE) 50 mcg/actuation nasal spray Use 2 Sprays in each nostril once daily. Rinse mouth after use. levothyroxine (SYNTHROID) 25 mcg tablet Take 1 tablet by mouth once daily. potassium chloride (K-TAB) 10 mEq tablet Take two tablets daily calcium carbonate (CALCIUM 500 ORAL) Take 1,000 mg by mouth once daily. HYDROcodone-acetaminophen (NORCO) 5-325 mg per tablet Take 1 tablet by mouth every 8 hours as needed for pain. albuterol (PROVENTIL) 2.5 mg /3 mL (0.083 %) nebulizer solution Use 3 mL via nebulizer every 4 hours as needed for Wheezing/Shortness of Breath. Use over 5-15minutes. Omeprazole 40 mg capsule Take 1 capsule by mouth twice daily. gabapentin (NEURONTIN) 400 mg capsule Take 400 mg by mouth three times a day. NEXLETOL 180 mg tablet once daily. (Patient not taking: Reported on 11/05/2024) mv,jaci,iron,mn/folic acid/chol (OLMC-WEDM-PDJOV, PABA, ORAL) Take 1 tablet by mouth once daily. (Patient not taking: Reported on 08/22/2022) Minoxidil 2 % external solution Apply 1 mL to affected area twice daily. No current facility-administered medications on file prior to visit. Social History Social History Tobacco Use Smoking status: Former Current packs/day: 0.00 Average packs/day: 1 pack/d (more content not included)...[facility] [facility]02-26-2025 History of Present illness Narrative* Girish Lemos MD - 11/12/2024 8:31 AM EST Chief Complaint Patient presents with: Follow Up: 4 week follow up Diarrhea Weight Problem: Weight loss down approx 7 lbs in 1 week Fatigue: weakness Sleep Problem Abdominal Pain: Continues- PET scan completed yesterday HPI Betsy Rodrigez is a 69 year old female who presents here today for Above Complaints. Accompanied today by her . Daughter Yenifer on the phone. Patient recently found to have hepatic masses and left upper lobe mass on CT scans. Has been evaluated by pulmonology Roxann Gomez who recommended PET scan which was completed yesterday. Results not available. Also saw Dr. Robbins on 11/05 who recommended liver biopsy after discussing with IR, but patient did not want to schedule at that time. Today, states that she continues to have bilateral upper abdominal pain up to /, nausea, loss of appetite, watery/loose diarrhea with 4-6 episodes per day, BRBRP with blood on TP, 4 lb weight loss in last week. States she feels warmer today than normal. Eating only 1 small meal per day. Taking zofran for nausea and imodium for diarrhea which is not helping. Has Harleton for her back which she has been taking for her abdominal pain without much improvement. Needing to take Harleton more than prescribed. Past medical history, appointments, medications, allergies reviewed. Previous Medical History PAST MEDICAL HISTORY Diagnosis Date Anxiety with depression Chronic back pain Chronic kidney disease (CKD), stage III (moderate) (HCC) Colon polyp tubular adenoma [address] 07/16 to 08/17 DDD (degenerative disc disease), lumbar seeing Dr. Johnson Dysphagia Dr. Stiles Ectopic 1991 GERD (gastroesophageal reflux disease) History of prediabetes Hyperlipidemia Hypertension Hypothyroidism Obesity (BMI 30.0-34.9) Other pulmonary embolism without acute cor pulmonale (HCC) Pneumonia due to [facility] virus Requiring intubation Previous Surgical History PAST SURGICAL HISTORY Procedure Laterality Date APPENDECTOMY 1966 BREAST LUMPECTOMY HX Bilateral BREAST RECONSTRUCTION Right SECTION HX 1974, 1975 CHOLECYSTECTOMY 2016 COLONOSCOPY 2016 repeat in 3 years, Dr. Stiles LYSIS OF ADHESIONS 1978 PAST SURGICAL HISTORY OF 1981 tubal reconstruction PAST SURGICAL HISTORY OF 2013 back surgery, microdiscectomy? PAST SURGICAL HISTORY OF Bilateral vericose vein stripping PAST SURGICAL HISTORY OF Bilateral heel spurs PAST SURGICAL HISTORY OF Bilateral surgery for epicondylitis PAST SURGICAL HISTORY OF cyst removal from eyelids TONSILLECTOMY HX 1957 Family History FAMILY HISTORY Problem Relation Age of Onset Cancer Mother lung Hypertension Mother Cancer Father lung No Known Problems Sister Cancer Brother lung No Known Problems Brother No Known Problems Brother Stroke Maternal Grandmother or [place], patient unsure Coronary Artery Disease Maternal Grandfather Alcohol abuse Paternal Grandfather Patient Allergies ALLERGIES Allergen Reactions Meagan Inhibitors Rash Codeine Vomiting, Other: See Comments Headache Remeron [Mirtazapin* Other: See Comments Fatigue Zfxudpn-Ekg-Fgk Red* Myalgia Michie Unknown Zetia [Ezetimibe] Myalgia Current Medications Current Outpatient Medications on File Prior to Visit Medication Sig ondansetron orally disintegrating (ZOFRAN ODT) 4 mg disintegrating tablet Take 1 tablet by mouth every 6 hours as needed for nausea/vomiting. losartan (COZAAR) 50 mg tablet Take 1 tablet by mouth once daily. fluticasone (FLONASE) 50 mcg/actuation nasal spray Use 2 Sprays in each nostril once daily. Rinse mouth after use. levothyroxine (SYNTHROID) 25 mcg tablet Take 1 tablet by mouth once daily. potassium chloride (K-TAB) 10 mEq tablet Take two tablets daily calcium carbonate (CALCIUM 500 ORAL) Take 1,000 mg by mouth once daily. HYDROcodone-acetaminophen (NORCO) 5-325 mg per tablet Take 1 tablet by mouth every 8 hours as needed for pain. albuterol (PROVENTIL) 2.5 mg /3 mL (0.083 %) nebulizer solution Use 3 mL via nebulizer every 4 hours as needed for Wheezing/Shortness of Breath. Use over 5-15minutes. Omeprazole 40 mg capsule Take 1 capsule by mouth twice daily. gabapentin (NEURONTIN) 400 mg capsule Take 400 mg by mouth three times a day. NEXLETOL 180 mg tablet once daily. (Patient not taking: Reported on 11/05/2024) mv,jaci,iron,mn/folic acid/chol (YHYB-LOCA-XRKVI, PABA, ORAL) Take 1 tablet by mouth once daily. (Patient not taking: Reported on 08/22/2022) Minoxidil 2 % external solution Apply 1 mL to affected area twice daily. No current facility-administered medications on file prior to visit. Social History Social History Tobacco Use Smoking status: Former Current packs/day: 0.00 Average packs/day: 1 pack/day for 49.0 years (49.0 ttl pk-yrs) Types: Cigarettes Start date: 08/14/1967 Quit date: 08/14/2016 Years since quittin.2 Smokeless tobacco: Never Vaping Use Vaping status: Never Used Substance Use Topics Alcohol use: No Drug use: No Review of Symptoms REVIEW OF SYSTEMS See HPI EXAM: BP 104/64 Pulse 83 Resp 16 Wt 70 kg (154 lb 6.4 oz) SpO2 93% BMI 27.02 kg/m General Appearance: Ill appearing, fatigued, . Skin: Skin color, texture, turgor normal, no suspicious rashes or lesions. Oropharynx: mucous membranes tacky. Lungs: Lungs clear to auscultation. No wheezing, rhonchi, rales.. Heart: RRR without murmur, gallop, or rubs. No ectopy. Abdomen: Positive findings: Marked TTP over upper abdomen bilaterally with guarding. +BS. ND. Extremities: No deformities, edema, skin discoloration, clubbing or cyanosis. Good capillary refill. Health Maintenance List Mammogram Screening due on 07/16/2020 Colorectal Cancer Screening due on 03/28/2023 Covid-19 Vaccine( season) due on 05/18/2024 BP Controlled (<130/80) due on 06/22/2024 Advance Directive Discussion Never done Serum Creatinine due on 10/16/2025 Annual PCP Team Chronic Disease Visit due on 10/17/2025 Lung Cancer Screening due on 10/30/2025 Diabetes Screening due on 10/16/2027 Lipid Screening due on 02/21/2028 RSV Vaccine(1 - 1-dose 75+ series) due on 2029 Bone Density Screening Completed Influenza Vaccine Completed Hepatitis C Screening Completed Pneumococcal Vaccine: 50+ Completed DTaP,Tdap,Td Vaccine Discontinued Shingrix Vaccine Discontinued ASSESSMENT/PLAN: 1. Generalized abdominal pain - ICD9: 789.07, ICD10: R10.84 (primary diagnosis) Patient with worsening abdominal pain despite Harleton, diarrhea uncontrolled with OTC meds, nausea uncontrolled with zofran. Appears dehydrated. Losing weight. All likely 2/2 cancer of unknown origin. Discussed evaluation through ER with admission to help control pain, give her IV fluids, and ideallyget biopsies to determine cause for her cancer. Agreeable to ER evaluation through [facility]. Called and gave report to ER physician. Advised if they discharge her home without admission, would recommend CC or kam. Records sent with patient. to drive her to ER. 2. Weight loss - ICD9: 783.21, ICD10: R63.4 See above. 3. Liver masses - ICD9: 573.8, ICD10: R16.0 See above. 4. Lung mass - ICD9: 786.6, ICD10: R91.8 See above. 5. Abnormal MRI, liver - ICD9: 793.3, ICD10: R93.2 See above. 6. Nausea and vomiting, unspecified vomiting type - ICD9: 787.01, ICD10: R11.2 See above. 7. Diarrhea, unspecified type - ICD9: 787.91, ICD10: R19.7 See above 8. Dehydration - ICD9: 276.51, ICD10: E86.0 See above 9. BRBPR (bright red blood per rectum) - ICD9: 569.3, ICD10: K62.5 See above. I spent a total of 40 minutes on the date of the service which included preparing to see the patient, [id number] patient care, completing clinical documentation, obtaining and/or reviewing separately obtained history, performing a medically appropriate examination, counseling and educating the pat ient/family/caregiver, and ordering medications, tests, or procedures. Girish Lemos MD documented [facility] Telephone encounter Note * Telephone Encounter - Jen Briggs - 11/05/2024 1:56 PM EST RECOMMENDATION/PLAN: 1. Recommend biopsy of liver. Patient wants to think about it, she' ll call or MyChart if she decides to proceed as recommended [facility] Work Phone: 1(397) 279-642302-19-2025 Miscellaneous Notes* Telephone Encounter - Jen Briggs - 11/05/2024 1:56 PM EST RECOMMENDATION/PLAN: 1. Recommend biopsy of liver. Patient wants to think about it, she' ll call or MyChart if she decides to proceed as recommended documented in this [facility]25 NoteHNO ID: [id number] Author: SILAS ROBBINS MD Service: ? Author Type: Physician Type: Progress Notes Filed: 11/05/2024 09:19 Note Text: HISTORY OF PRESENT ILLNESS: Betsy Rodrigez is a 69 year old female right side pain, not eating as well, weight down about 20 pounds since June [address]24. CT abdomen shows multiple liver masses Ct chest shows left lung mass We discussed need for biopsy. I reviewed the CT scan with IR, liver lesions are amenable to biopsy CLINICAL IMPRESSION: Lung and liver masses RECOMMENDATION/PLAN: 1. Recommend biopsy of liver. Patient wants to think about it, she' ll call or MyChart if she decides to proceed as recommended Written and verbal health teaching given to patient, patient verbalizes understanding and agrees with treatment plan. PAST MEDICAL HISTORY Diagnosis Date Anxiety with depression Chronic back pain Chronic kidney disease (CKD), stage III (moderate) (HCC) Colon polyp tubular adenoma [address] 07/16 to 08/17 DDD (degenerative disc disease), lumbar seeing Dr. Johnson Dysphagia Dr. Stiles Ectopic 1991 GERD (gastroesophageal reflux disease) History of prediabetes Hyperlipidemia Hypertension Hypothyroidism Obesity (BMI 30.0-34.9) Other pulmonary embolism without acute cor pulmonale (HCC) Pneumonia due to [facility] virus Requiring intubation PAST SURGICAL HISTORY Procedure Laterality Date APPENDECTOMY 1966 BREAST LUMPECTOMY HX Bilateral BREAST RECONSTRUCTION Right SECTION HX 1974, 1976 CHOLECYSTECTOMY 2016 COLONOSCOPY 2016 repeat in 3 years, Dr. Stiles LYSIS OF ADHESIONS 1978 PAST SURGICAL HISTORY OF 1981 tubal reconstruction PAST SURGICAL HISTORY OF 2013 back surgery, microdiscectomy? PAST SURGICAL HISTORY OF Bilateral vericose vein stripping PAST SURGICAL HISTORY OF Bilateral heel spurs PAST SURGICAL HISTORY OF Bilateral surgery for epicondylitis PAST SURGICAL HISTORY OF cyst removal from eyelids TONSILLECTOMY HX 89 FAMILY HISTORY Problem Relation Age of Onset Cancer Mother lung Hypertension Mother Cancer Father lung No Known Problems Sister Cancer Brother lung No Known Problems Brother No Known Problems Brother Stroke Maternal Grandmother or [place], patient unsure Coronary Artery Disease Maternal Grandfather Alcohol abuse Paternal Grandfather Social History Tobacco Use Smoking status: Former Current packs/day: 0.00 Average packs/day: 1 pack/day for 49.0 years (49.0 ttl pk-yrs) Types: Cigarettes Start date: 08/14/1967 Quit date: 08/14/2016 Years since quittin.2 Smokeless tobacco: Never Vaping Use Vaping status: Never Used Substance Use Topics Alcohol use: No Drug use: No ALLERGIES: ALLERGIES Allergen Reactions Meagan Inhibitors Rash Codeine Vomiting, Other: See Comments Headache Remeron [Mirtazapin* Other: See Comments Fatigue Twymqem-Idi-Jpr Red* Myalgia Michie Unknown Zetia [Ezetimibe] Myalgia CURRENT OUTPATIENT MEDICATIONS: ondansetron orally disintegrating (ZOFRAN ODT) 4 mg disintegrating tablet Take 1 tablet by mouth every 6 hours as needed for nausea/vomiting. losartan (COZAAR) 50 mg tablet Take 1 tablet by mouth once daily. fluticasone (FLONASE) 50 mcg/actuation nasal spray Use 2 Sprays in each nostril once daily. Rinse mouth after use. levothyroxine (SYNTHROID) 25 mcg tablet Take 1 tablet by mouth once daily. potassium chloride (K-TAB) 10 mEq tablet Take two tablets daily calcium carbonate (CALCIUM 500 ORAL) Take 1,000 mg by mouth once daily. HYDROcodone-acetaminophen (NORCO) 5-325 mg per tablet Take 1 tablet by mouth every 8 hours as needed for pain. Minoxidil 2 % external solution Apply 1 mL to affected area twice daily. albuterol (PROVENTIL) 2.5 mg /3 mL (0.083 %) nebulizer solution Use 3 mL via nebulizer every 4 hours as needed for Wheezing/Shortness of Breath. Use over 5-15minutes. Omeprazole 40 mg capsule Take 1 capsule by mouth twice daily. gabapentin (NEURONTIN) 400 mg capsule Take 400 mg by mouth three times a day. NEXLETOL 180 mg tablet once daily. (Patient not taking: Reported on 11/05/2024) mv,jaci,iron,mn/folic acid/chol (ETFP-YNUP-WANWW, PABA, ORAL) Take 1 tablet by mouth once daily. (Patient not taking: Reported on 08/22/2022) REVIEW OF SYSTEMS: GENERAL: No fever, night sweats, weight loss or malaise. All other reviewed and negative other than HPI. PHYSICAL EXAMINATION: VITAL SIGNS: BP 138/78 Pulse 69 Temp (Src) 98.1 (Temporal) Ht 5' 3.386 (1.61m) Wt 158 lb 8 oz (71.9kg) SpO2 95% BMI 27.74 kg/(m2). GENERAL APPEARANCE: Well appearing, in no acute distress, alert and oriented x3, well-hydrated, well nourished. I spent a total of 60 minutes on the date of the service which included preparing to see the patient, [id number] patient care, completing clinical documentation, obtaining and/or reviewing separately obtained history, counseling and educ (more content not included)...[facility] 11-05-2024 History of Present illness Narrative* Silas Robbins MD - 11/05/2024 8:52 AM EST HISTORY OF PRESENT ILLNESS: Betsy Rodrigez is a 69 year old female right side pain, not eating as well, weight down about 20 pounds since June [address]24. CT abdomen shows multiple liver masses Ct chest shows left lung mass We discussed need for biopsy. I reviewed the CT scan with IR, liver lesions are amenable to biopsy CLINICAL IMPRESSION: Lung and liver masses RECOMMENDATION/PLAN: 1. Recommend biopsy of liver. Patient wants to think about it, she' ll call or MyChart if she decides to proceed as recommended Written and verbal health teaching given to patient, patient verbalizes understanding and agrees with treatment plan. PAST MEDICAL HISTORY Diagnosis Date Anxiety with depression Chronic back pain Chronic kidney disease (CKD), stage III (moderate) (HCC) Colon polyp tubular adenoma [address] 07/16 to 08/17 DDD (degenerative disc disease), lumbar seeing Dr. Johnson Dysphagia Dr. Stiles Ectopic 1991 GERD (gastroesophageal reflux disease) History of prediabetes Hyperlipidemia Hypertension Hypothyroidism Obesity (BMI 30.0-34.9) Other pulmonary embolism without acute cor pulmonale (HCC) Pneumonia due to [facility] virus Requiring intubation PAST SURGICAL HISTORY Procedure Laterality Date APPENDECTOMY 1966 BREAST LUMPECTOMY HX Bilateral BREAST RECONSTRUCTION Right SECTION HX 1974, 1976 CHOLECYSTECTOMY 2016 COLONOSCOPY 2016 repeat in 3 years, Dr. Stiles LYSIS OF ADHESIONS 1978 PAST SURGICAL HISTORY OF 1981 tubal reconstruction PAST SURGICAL HISTORY OF 2014 back surgery, microdiscectomy? PAST SURGICAL HISTORY OF Bilateral vericose vein stripping PAST SURGICAL HISTORY OF Bilateral heel spurs PAST SURGICAL HISTORY OF Bilateral surgery for epicondylitis PAST SURGICAL HISTORY OF cyst removal from eyelids TONSILLECTOMY HX 89 FAMILY HISTORY Problem Relation Age of Onset Cancer Mother lung Hypertension Mother Cancer Father lung No Known Problems Sister Cancer Brother lung No Known Problems Brother No Known Problems Brother Stroke Maternal Grandmother or [place], patient unsure Coronary Artery Disease Maternal Grandfather Alcohol abuse Paternal Grandfather Social History Tobacco Use Smoking status: Former Current packs/day: 0.00 Average packs/day: 1 pack/day for 49.0 years (49.0 ttl pk-yrs) Types: Cigarettes Start date: 08/14/1967 Quit date: 08/14/2016 Years since quittin.2 Smokeless tobacco: Never Vaping Use Vaping status: Never Used Substance Use Topics Alcohol use: No Drug use: No ALLERGIES: ALLERGIES Allergen Reactions Meagan Inhibitors Rash Codeine Vomiting, Other: See Comments Headache Remeron [Mirtazapin* Other: See Comments Fatigue Mvplqmn-Scu-Xhy Red* Myalgia Michie Unknown Zetia [Ezetimibe] Myalgia CURRENT OUTPATIENT MEDICATIONS: ondansetron orally disintegrating (ZOFRAN ODT) 4 mg disintegrating tablet Take 1 tablet by mouth every 6 hours as needed for nausea/vomiting. losartan (COZAAR) 50 mg tablet Take 1 tablet by mouth once daily. fluticasone (FLONASE) 50 mcg/actuation nasal spray Use 2 Sprays in each nostril once daily. Rinse mouth after use. levothyroxine (SYNTHROID) 25 mcg tablet Take 1 tablet by mouth once daily. potassium chloride (K-TAB) 10 mEq tablet Take two tablets daily calcium carbonate (CALCIUM 500 ORAL) Take 1,000 mg by mouth once daily. HYDROcodone-acetaminophen (NORCO) 5-325 mg per tablet Take 1 tablet by mouth every 8 hours as needed for pain. Minoxidil 2 % external solution Apply 1 mL to affected area twice daily. albuterol (PROVENTIL) 2.5 mg /3 mL (0.083 %) nebulizer solution Use 3 mL via nebulizer every 4 hours as needed for Wheezing/Shortness of Breath. Use over 5-15minutes. Omeprazole 40 mg capsule Take 1 capsule by mouth twice daily. gabapentin (NEURONTIN) 400 mg capsule Take 400 mg by mouth three times a day. NEXLETOL 180 mg tablet once daily. (Patient not taking: Reported on 11/05/2024) mv,jaci,iron,mn/folic acid/chol (FILZ-UNNA-MMIQY, PABA, ORAL) Take 1 tablet by mouth once daily. (Patient not taking: Reported on 08/22/2022) REVIEW OF SYSTEMS: GENERAL: No fever, night sweats, weight loss or malaise. All other reviewed and negative other than HPI. PHYSICAL EXAMINATION: VITAL SIGNS: BP 138/78 Pulse 69 Temp (Src) 98.1 (Temporal) Ht 5' 3.386 (1.61m) Wt 158 lb 8oz (71.9kg) SpO2 95% BMI 27.74 kg/(m^2). GENERAL APPEARANCE: Well appearing, in no acute distress, alert and oriented x3, well-hydrated, well nourished. I spent a total of 60 minutes on the date of the service which included preparing to see the patient, eqmf-om-sfep patient care, completing clinical documentation, obtaining and/or reviewing separately obtained history, counseling and educating the patient/family/caregiver, communicating with other HCPs (not separately reported), independently interpreting results (not separately reported), and communicating results to the patient/family/caregiver. Reviewed images. Electronically Signed: Silas Robbins MD November 05, 2024 8:52 AM documented in this encounterMer[facility]02-18-2025 Telephone encounter Note * Telephone Encounter - Krystin Zimmerman LPN - 11/04/2024 5:02 PM EST Scan on 11/04/2024 1:33 PM by Provider, External, PAShanikaC: Consultation - Pulmonary [facility]02-18-2025 Miscellaneous Notes* Telephone Encounter - Krystin Zimmerman LPN - 11/04/2024 5:02 PM EST Scan on 11/04/2024 1:33 PM by Provider, MU Shankar: Consultation - Pulmonary * Telephone Encounter - Girish Lemos MD - 11/04/2024 12:54 PM EST Called and spoke with Roxann Gomez who saw patient in office yesterday and they are recommending PET scan for further evaluation and to determine which mass to biopsy. PET scheduled for next week. They will fax records to our office when complete. Discussed she has appointment with oncology tomorrow. I will forward this to Dr. Robbins to review as FYI. * Telephone Encounter - Girish Lemos MD - 11/04/2024 12:26 PM EST Call is going to directly voicemail. Will call back after seeing next patient. * Telephone Encounter - Terri Dowell RN - 11/04/2024 12:16 PM EST Roxann Gomez CNP [facility] calls and is requesting PCP to call her back about patient. Terri Dwoell RN documented in this encounterMer[facility]02-18-2025 Telephone encounter Note * Telephone Encounter - Girish Lemos MD - 11/04/2024 12:54 PM EST Called and spoke with Roxann Gomez who saw patient in office yesterday and they are recommending PET scan for further evaluation and to determine which mass to biopsy. PET scheduled for next week. They will fax records to our office when complete. Discussed she has appointment with oncology tomorrow. I will forward this to Dr. Robbins to review as FYI. [facility]02-18-2025 Telephone encounter Note* Telephone Encounter - Girish Lemos MD - 11/04/2024 12:26 PM EST Call is going to directly voicemail. Will call back after seeing next patient. [facility]02-18-2025 Telephone encounter Note* Telephone Encounter - Terri Dowell RN - 11/04/2024 12:16 PM EST Roxann Gomez [facility] calls and is requesting PCP to call her back about patient. Terri Dowell RN [facility]02-17-2025 Telephone encounter Note* Telephone Encounter - Joyce Cisneros LPN - 11/03/2024 2:38 PM EST After speaking to Dr. Lee regarding this patient's records, I spoke with the patient and she decided to keep the appointment as scheduled with Dr. Robbins as to not delay her care. Joyce Cisneros LPN [facility]02-17-2025 Miscellaneous Notes* Telephone Encounter - Joyce Cisneros LPN - 11/03/2024 2:38 PM EST After speaking to Dr. Lee regarding this patient's records, I spoke with the patient and she decided to keep the appointment as scheduled with Dr. Robbins as to not delay her care. Joyce Cisneros LPN * Telephone Encounter - Jen Briggs - 11/03/2024 1:43 PM EST Patient called earlier today stating she received a call stating not all results are in and she should cancel new patient appt on 11/05. I confirmed with triage that it was not our office that contacted her and to keep office visit as scheduled. Patient just called back stating to cancel new patient appointment. Her daughter wants to reschedule after patient has pet scan at [facility]. Daughter states wait until results from Pet scan and then patient will reschedule. documented in this encounterMer[facility]02-17-2025 Telephone encounter Note * Telephone Encounter - Jen Briggs - 11/03/2024 1:43 PM EST Patient called earlier today stating she received a call stating not all results are in and she should cancel new patient appt on 11/05. I confirmed with triage that it was not our office that contacted her and to keep office visit as scheduled. Patient just called back stating to cancel new patient appointment. Her daughter wants to reschedule after patient has pet scan at [facility]. Daughter states wait until results from Pet scan and then patient will reschedule. [facility] Work Phone: 1(268) 584-174802-17-2025 Evaluation note* Diagnosis Onset Date Resolution Status Admit Date Mediastinal mass acute November 03, 2024 11:20am Hypoxia chronic November 03, 2024 11:20am ARMANDO (obstructive sleep apnea) chroni c November 03, 2024 11:20am Pulmonary hypertension chronic Fe bruary 2024 11:20am Smoking greater than 40 pack years chronic November 03, 11:20am Elevated LFTs acute November 122024 12:58pm Elevated lipase acute November 12, 2024 12:58pm Epigastric pain acute November 12, 2024 12:58pm Intractable abdominal pain acute November 12, 2024 12:58pm Metastasis to liver acute Febru [email or web address] 12:58pm [facility] Work Phone: 1(857) 902-797502-17-2025 Evaluation note* Diagnosis Onset Date Resolution Status Admit Date Hypoxia chronic November 03, 2024 11:20am ARMANDO (obstructive sleep apnea) chroni c November 03, 2024 11:20am Pulmonary hypertension chronic Fe bruary 2024 11:20am Smoking greater than 40 pack years chronic November 03, 025 11:20am Mediastinal mass deleted November 03, 2024 11:20am Epigastric pain acute November 12, 2024 12:58pm Intractable abdominal pain acute November 12, 2024 12:58pm Metastasis to liver acute Febru [email or web address] 12:58pm Elevated LFTs deleted November 122024 12:58pm Elevated lipase deleted November 12, 2024 12:58pm 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 November 24 2:38pm Jaundice acute November 24 2:38pm Metastasis to bone acute November 24, 2024 2:38pm Metastasis to liver acute November 24, 2024 2:38pm Regional lymph node metastas is present acute November 24, 2024 2:38pm Small cell lung cancer acute [facility] 2024 2:38pm Bilateral lower extremity edema acut e December 02, 2024 12:19pm Jaundice acute December 02 12:19pm Metastasis to bone acute December 02, 2024 12:19pm Metastasis to liver acute December 02, 2024 12:19pm Regional lymph node metastas is present acute December 02, 2024 12:19pm Small cell lung cancer acute [facility] 2024 12:19pm Bilateral lower extremity edema acut e December 09, 2024 9:51am Metastasis to bone acute December 09, 2024 9:51am Metastasis to liver acute December 09, 2024 9:51am Regional lymph node metastas is present acute December 09, 2024 9:51am Small cell lung cancer acute [facility] 2024 9:51am Encounter for insertion of venous access port acute December 10, 025 12:33pm 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 December 10 12:33pm [facility] Work Phone: 1(228) 189-881202-17-2025 Evaluation note* Diagnosis Onset Date Resolution Status Admit Date Hypoxia chronic November 03, 2024 11:20am ARMANDO (obstructive sleep apnea) chroni c November 03, 2024 11:20am Pulmonary hypertension chronic Fe bruary 2024 11:20am Smoking greater than 40 pack years chronic November 03 025 11:20am Mediastinal mass deleted November 03, 2024 11:20am Epigastric pain acute November 12, 2024 12:58pm Intractable abdominal pain acute November 12, 2024 12:58pm Metastasis to liver acute Febru dacia 2024 12:58pm Elevated LFTs deleted November 122024 12:58pm Elevated lipase deleted November 12, 2024 12:58pm 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 November 24 2:38pm Metastasis to bone acute November 24, 2024 2:38pm Metastasis to liver acute November 24, 2024 2:38pm Regional lymph node metastas is present acute November 24, 2024 2:38pm Small cell lung cancer acute [facility] 2024 2:38pm Jaundice resolved November 24 2:38pm Bilateral lower extremity edema acute December 02, 2024 12:19pm Metastasis to bone acute December 02, 2024 12:19pm Metastasis to liver acute December 02, 2024 12:19pm Regional lymph node metastas is present acute December 02, 2024 12:19pm Small cell lung cancer acute [facility] 2024 12:19pm Jaundice resolved December 02 12:19pm Bilateral lower extremity edema acute December 09, 2024 9:51am Metastasis to bone acute December 09, 2024 9:51am Metastasis to liver acute December 09, 2024 9:51am Regional lymph node metastas is present acute December 09, 2024 9:51am Small cell lung cancer acute [facility] 2024 9:51am Encounter for insertion of venous access port acute December 10 025 12:33pm 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 December 10 12:33pm Bilateral lower extremity edema acute December 16, 2024 7:48am Encounter for chemotherapy management acute December 16, 2024 7:48am Internal hemorrhoids acute Apr2024 7:48am Metastasis to bone acute December 16, 2024 7:48am Metastasis to liver acute December 16, 2024 7:48am Regional lymph node metastas is present acute December 16, 2024 7:48am Small cell lung cancer acute [facility] 2024 7:48am Port-A-Cath in place acute [facility] 2024 1:00pm Bilateral lower extremity edema acute December 29, 2024 12:42pm Internal hemorrhoids acute [facility] 2024 12:42pm Metastasis to bone acute December 29, 2024 12:42pm Metastasis to liver acute December 29, 2024 12:42pm Regional lymph node metastas is present acute December 29, 2024 12:42pm Small cell lung cancer acute [facility] 2024 12:42pm Metastasis to bone acute January 06, 2025 7:58am Metastasis to liver acute January 06, 2025 7:58am Regional lymph node metastas is present acute January 06, 2025 7:58am Small cell lung cancer acute [facility] 2024 7:58am Jaundice resolved January 06 7:58am Chest pain acute January 09 7:31pm Elevated troponin acute December 172024 7:31pm Shortness of breath acute January 09, 2025 7:31pm Small cell lung cancer acute [facility] 2024 7:31pm [facility] Work Phone: 1(275) 126-585102-17-2025 Evaluation note* Diagnosis Onset Date Resolution Status Admit Date Hypoxia chronic November 03, 2024 11:20am ARMANDO (obstructive sleep apnea) chroni c November 03, 2024 11:20am Pulmonary hypertension chronic Fe bruary 2024 11:20am Smoking greater than 40 pack years chronic November 03, 2 025 11:20am Mediastinal mass deleted November 03, 2024 11:20am Epigastric pain acute November 12, 2024 12:58pm Intractable abdominal pain acute November 12, 2024 12:58pm Metastasis to liver acute Febru dacia 2024 12:58pm Elevated LFTs deleted November 122024 12:58pm Elevated lipase deleted November 12, 2024 12:58pm 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 November 24 2:38pm Metastasis to bone acute November 24, 2024 2:38pm Metastasis to liver acute November 24, 2024 2:38pm Regional lymph node metastas is present acute November 24, 2024 2:38pm Small cell lung cancer acute [facility] 2024 2:38pm Jaundice resolved November 24 2:38pm Bilateral lower extremity edema acute December 02, 2024 12:19pm Metastasis to bone acute December 02, 2024 12:19pm Metastasis to liver acute December 02, 2024 12:19pm Regional lymph node metastas is present acute December 02, 2024 12:19pm Small cell lung cancer acute [facility] 2024 12:19pm Jaundice resolved December 02 12:19pm Bilateral lower extremity edema acute December 09, 2024 9:51am Metastasis to bone acute December 09, 2024 9:51am Metastasis to liver acute December 09, 2024 9:51am Regional lymph node metastas is present acute December 09, 2024 9:51am Small cell lung cancer acute [facility] 2024 9:51am Encounter for insertion of venous access port acute December 10, 025 12:33pm 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 December 10 12:33pm Bilateral lower extremity edema acute December 16, 2024 7:48am Encounter for chemotherapy management acute December 16, 2024 7:48am Internal hemorrhoids acute [facility] 2024 7:48am Metastasis to bone acute December 16, 2024 7:48am Metastasis to liver acute December 16, 2024 7:48am Regional lymph node metastas is present acute December 16, 2024 7:48am Small cell lung cancer acute [facility] 2024 7:48am Port-A-Cath in place acute Apri l 2024 1:00pm Bilateral lower extremity edema acute December 29, 2024 12:42pm Internal hemorrhoids acute [facility] 2024 12:42pm Metastasis to bone acute December 29, 2024 12:42pm Metastasis to liver acute December 29, 2024 12:42pm Regional lymph node metastas is present acute December 29, 2024 12:42pm Small cell lung cancer acute [facility] 2024 12:42pm Metastasis to bone acute January 06, 2025 7:58am Metastasis to liver acute January 06, 2025 7:58am Regional lymph node metastas is present acute January 06, 2025 7:58am Small cell lung cancer acute [facility] 2024 7:58am Jaundice resolved January 06 7:58am Shortness of breath acute January 09, 2025 7:31pm Small cell lung cancer acute [facility] 2024 7:31pm Chest pain resolved January 09 7:31pm Elevated troponin inactive December 172024 7:31pm 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 February 03, 2025 7:56am Metastasis to bone acute February 032024 7:56am Metastasis to liver acute January 162024 7:56am Regional lymph node metastas is present acute February 03, 2025 7 :56am Jaundice resolved February 03, 2025 7:56am [facility] [employer] Work Phone: 1(524) 222-8985263758-63-7901 Telephone encounter Note* Telephone Encounter - Delmis Park PSS - 10/31/2024 4:04 PM EST CD READY FOR MANUFACTURING STOREPERSON [place] [facility] Pt is aware [facility]02-14-2025 Miscellaneous Notes* Telephone Encounter - Delmis Park PSS - 10/31/2024 4:04 PM EST CD READY FOR MANUFACTURING STOREPERSON AT [facility] Pt is aware * Telephone Encounter - Chacho Ambriz LPN - 10/31/2024 12:10 PM EST Pt called to request a copy of the disk for the CT of chest pt had done 10/30/24. Pt has an apt on 11-21-24 at [facility] with Pulmonology. Pt is trying to get this moved up. Please advise pt when the disk is done. Chacho Ambriz LPN documented in this encounter[facility] Telephone encounter Note * Telephone Encounter - Jen Briggs - 10/31/2024 2:36 PM EST Appointment scheduled. [facility] Work Phone: 1(495) 356-494502-14-2025 Miscellaneous Notes* Telephone Encounter - Jen Briggs - 10/31/2024 2:36 PM EST Appointment scheduled. * Telephone Encounter - Joyce Cisneros LPN - 10/31/2024 2:13 PM EST PSS- please schedule patient with Dr. Robbins on 11/05/2024 @ 9:00. Patient knows to arrive at 8:30. She is aware of the appointment. Joyce Cisneros LPN * Telephone Encounter - Joyce Cisneros LPN - 10/31/2024 8:55 AM EST Left message for patient to contact office. PSS- please offer her a new patient appointment TODAY with Dr. Hansen @ 10:30 or 1:00. Joyce Cisneros LPN * Telephone Encounter - Joyce Cisneros LPN - 10/30/2024 4:[address] chest results from 10/30/2024- IMPRESSION: 1. Irregular left upper lobe perihilar mass which could represent a primary lung malignancy or metastatic lesion 2. Mediastinal and left hilar lymphadenopathy CT abd/pel from 10/16/2024- Numerous bilobar hepatic masses Being referred by Dr. Lemos. No biopsy yet. Joyce Cisneros LPN * Telephone Encounter - Joyce Cisneros LPN - 10/27/2024 9:[address] chest scheduled for 10/30/2024. Joyce Cisneros LPN * Telephone Encounter - Joyce Cisneros LPN - 10/22/2024 10:31 AM EST D/T CT machine being down, CT chest rescheduled to 10/22/2024. Joyce Cisneros LPN * Telephone Encounter - Joyce Cisneros LPN - 10/20/2024 8:34 AM EST Scheduled for CT chest today to find primary. Will need biopsy. Joyce Cisneros LPN * Telephone Encounter - Jyotsna Bender - 10/20/2024 8:29 AM EST Patient has consult to Oncology that needs to be scheduled. DX: Liver Masses Insurance: [employer] Medicare Advantage HMO Referred by: Girish Lemos MD Please review and advise. documented in this encounterMer[facility] Telephone encounter Note * Telephone Encounter - Joyce Cisneros LPN - 10/31/2024 2:13 PM EST PSS- please schedule patient with Dr. Robbins on 11/05/2024 @ 9:00. Patient knows to arrive at 8:30. She is aware of the appointment. Joyce Cisneros LPN [facility]02-14-2025 Telephone encounter Note* Telephone Encounter - Chacho Ambriz LPN - 10/31/2024 12:10 PM EST Pt called to request a copy of the disk for the CT of chest pt had done 10/30/24. Pt has an apt on 11-21-24 at [facility] with Pulmonology. Pt is trying to get this moved up. Please advise pt when the disk is done. Chacho Ambriz LPN [facility]02-14-2025 Telephone encounter Note* Telephone Encounter - Lizzy Watson - 10/31/2024 9:19 AM EST Patient scheduled consultation with hepatology on 12/26/24 and has been added to wait list. Patient declined to schedule with provider's that had sooner availability due to distance to facilities. Routing message to [facility]/Onc to assist patient with scheduling oncology referral. [facility]02-14-2025 Miscellaneous Notes* Telephone Encounter - Lizzy Watson - 10/31/2024 9:19 AM EST Patient scheduled consultation with hepatology on 12/26/24 and has been added to wait list. Patient declined to schedule with provider's that had sooner availability due to distance to facilities. Routing message to [facility] to assist patient with scheduling oncology referral. * Telephone Encounter - Marta Meadows RN - 10/31/2024 9:12 AM EST Patient returned call and given provider's message regarding CT scan results. Patient agreeable to schedule with radio electronics technician. 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 Faxed CT results and demographics to [facility] pulmonology per patient request. documented in this encounterMer[facility]25 Telephone encounter Note * Telephone Encounter - Marta Meadows RN - 10/31/2024 9:12 AM EST Patient returned call and given provider's message regarding CT scan results. Patient agreeable to schedule with radio electronics technician. 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 Faxed CT results and demographics to [facility] pulmonology per patient request. [facility]02-14-2025 Telephone encounter Note* Telephone Encounter - Joyce Cisneros LPN - 10/31/2024 8:55 AM EST Left message for patient to contact office. PSS- please offer her a new patient appointment TODAY with Dr. Hansen @ 10:30 or 1:00. Joyce Cisneros LPN [facility]02-13-2025 Telephone encounter Note* Telephone Encounter - Joyce Cisneros LPN - 10/30/2024 4:[address] chest results from 10/30/2024- IMPRESSION: 1. Irregular left upper lobe perihilar mass which could represent a primary lung malignancy or metastatic lesion 2. Mediastinal and left hilar lymphadenopathy CT abd/pel from 10/16/2024- Numerous bilobar hepatic masses Being referred by Dr. Lemos. No biopsy yet. Joyce Cisneros LPN [facility]02-13-2025 Telephone encounter Note* Telephone Encounter - Poonam Denise RN - 10/30/2024 9:36 AM EST Patient calling in. States she completed her Chest CT this morning and would like advised as to what she should do next. Informed pt that results will be sent to Dr. Lemos for review, once results are received, and she would be advised then. Patient aware that she will need to see Oncology once CT results received and PCP advises. Poonam Denise RN [facility]02-13-2025 Miscellaneous Notes* Telephone Encounter - Poonam Denise RN - 10/30/2024 9:36 AM EST Patient calling in. States she completed her Chest CT this morning and would like advised as to what she should do next. Informed pt that results will be sent to Dr. Lemos for review, once results are received, and she would be advised then. Patient aware that she will need to see Oncology once CT results received and PCP advises. Poonam Denise RN documented in this encounterMer[facility]02-[facility]-2025 History of Present illness Narrative* Viridiana Torres, RT(R) - 10/30/2024 8:00 AM EST Radiology Service Progress Note DATE OF SERVICE: October 30, 2024 TIME: 12:42 PM PATIENT IDENTITY VERIFICATION COMPLETED USING TWO (2) STANDARD IDENTIFIERS: Name and Date of confirmed by patient verbally. FALL SCREENING: Has the patient had 2 falls in the last year or 1 fall with injury or currently using an Ambulatory Assistive Device (Walker, Cane, Wheelchair, Crutches, etc.)? No PATIENT GENDER DATA: Assigned female at . status: : No status:NO. PATIENT RELEVANT IMPLANT DATA REVIEWED: Yes PATIENT PRESENTS WITH AN IMPLANTABLE OR ATTACHED SHADOWGRAPH OPERATOR: No ALLERGIES: Reviewed and unchanged CONTRAST ALLERGY: NO. EXAM: CT -CONTRAST INDUCED NEPHROPATHY RISK FACTORS: Patient age > 60 years CREATININE: Creatinine Date Value Ref Range Status 10/16/2024 0.86 0.58 - 0.96 mg/dL Final 07/15/2024 0.90 0.58 - 0.96 mg/dL Final 01/18/2024 0.90 0.58 - 0.96 mg/dL Final Estimated Glomerular Filtration Rate Date Value Ref Range Status 10/16/2024 73 >=60 mL/min/1.73m Final Comment: Estimated Glomerular Filtration Rate (eGFR) is calculated using the 2020 CKD-EPI creatinine equation. This equation utilizes serum creatinine, sex, and age as parameters. The creatinine assay has traceable calibration to isotope dilution- mass spectrometry. Refer to KDIGO guidelines for clinical interpretation. In patients with unstable renal function, e.g. those with acute kidney injury, the eGFRmay not accurately reflect actual GFR. eGFR- Date Value Ref Range Status 04/20/2021 >60 Final P.O.C.T. RESULTS: N/A October 30, 2024 TREATMENT: N/A PERIPHERAL IV DATA: Ambulatory: A peripheral IV was started in the Left antecubital site with a Angio cath: 22 gauge. RADIOLOGY DEPARTMENT: CT; Exam(s) Completed: Chest SIGNATURE: GM Cristobal) PATIENT NAME: Betsy Rodrigez DATE: October 30, 2024 TIME: 12:42 PM documented in this encounterMercy Health St. [facility]02-13-2025 NoteHNO ID: [id number] Author: VIRIDIANA TORRES RT (R) Service: ? Author Type: [employer] Tender Type: Progress Notes Filed: 10/30/2024 12:42 Note Text: Radiology Service Progress Note DATE OF SERVICE: October 30, 2024 TIME: 12:42 PM PATIENT IDENTITY VERIFICATION COMPLETED USING TWO (2) STANDARD IDENTIFIERS: Name and Date of confirmed by patient verbally. FALL SCREENING: Has the patient had 2 falls in the last year or 1 fall with injury or currently using an Ambulatory Assistive Device (Walker, Cane, Wheelchair, Crutches, etc.)? No PATIENT GENDER DATA: Assigned female at . status: : No status: NO. PATIENT RELEVANT IMPLANT DATA REVIEWED: Yes PATIENT PRESENTS WITH AN IMPLANTABLE OR ATTACHED SHADOWGRAPH OPERATOR: No ALLERGIES: Reviewed and unchanged CONTRAST ALLERGY: NO. EXAM: CT -CONTRAST INDUCED NEPHROPATHY RISK FACTORS: Patient age > 60 years CREATININE: Creatinine Date Value Ref Range Status 10/16/2024 0.86 0.58 - 0.96 mg/dL Final 07/15/2024 0.90 0.58 - 0.96 mg/dL Final 01/18/2024 0.90 0.58 - 0.96 mg/dL Final Estimated Glomerular Filtration Rate Date Value Ref Range Status 10/16/2024 73 >=60 mL/min/1.73m? Final Comment: Estimated Glomerular Filtration Rate (eGFR) is calculated using the 2020 CKD-EPI creatinine equation. This equation utilizes serum creatinine, sex, and age as parameters. The creatinine assay has traceable calibration to isotope dilution-mass spectrometry. Refer to KDIGO guidelines for clinical interpretation. In patients with unstable renal function, e.g. those with acute kidney injury, the eGFR may not accurately reflect actual GFR. eGFR- Date Value Ref Range Status 04/20/2021 >60 Final P.O.C.T. RESULTS: N/A October 30, 2024 TREATMENT: N/A PERIPHERAL IV DATA: Ambulatory: A peripheral IV was started in the Left antecubital site with a Angio cath: 22 gauge. RADIOLOGY DEPARTMENT: CT; Exam(s) Completed: Chest SIGNATURE: RT Levra(R) PATIENT NAME: Betsy Rodrigez DATE: October 30, 2024 TIME: 12:42 [facility]02-10-2025 Telephone encounter Note* Telephone Encounter - Joyce Cisneros LPN - 10/27/2024 9:[address] chest scheduled for 10/30/2024. Joyce Cisneros LPN [facility]02-05-2025 Telephone encounter Note* Telephone Encounter - Phylicia Heredia RN - 10/22/2024 3:19 PM EST Patient calls upset that the CT scan of her chest order has been cancelled four times. Patient requests order be sent to [facility] to see if they can see her any sooner that [facility]. Faxed per request to [phone]. Submitted PA to [employer] and [employer]ori. Phylicia Heredia RN [facility]02-05-2025 Miscellaneous Notes* Telephone Encounter - Phylicia Heredia RN - 10/22/2024 3:19 PM EST Patient calls upset that the CT scan of her chest order has been cancelled four times. Patient requests order be sent to [facility] to see if they can see her any sooner that [facility]. Faxed per request to [phone]. Submitted PA to [employer] and [employer]ori. Phylicia Heredia RN documented in this encounterMercy Health St. [facility]02-05-2025 Telephone encounter Note * Telephone Encounter - Joyce Cisneros LPN - 10/22/2024 10:31 AM EST D/T CT machine being down, CT chest rescheduled to 10/22/2024. Joyce Cisneros LPN [facility]02-03-2025 Telephone encounter Note* Telephone Encounter - Mae Wong MA - 10/20/2024 10:40 AM EST Pt notified of results via [employer]. Mae Wong Ma [facility]02-03-2025 Miscellaneous Notes* Telephone Encounter - Mae Wong MA - 10/20/2024 10:40 AM EST Pt notified of results via [employer]. Mae Wong Ma * Telephone Encounter - Oleg Fields APRN.DIA - 10/20/2024 10:20 AM EST Please let patient know her hepatitis panel is negative. * Telephone Encounter - Arin Muñoz MA - 10/16/2024 3:00 PM EST Pt notified and scheduled for a follow up tomorrow Arin Muñoz MA * Telephone Encounter - Oleg Fields APRN.CNP - 10/16/2024 1:33 PM EST Please call patient and schedule follow up with Dr. Lemos for tomorrow to discuss results and care plan. Also let patient know I have ordered follow up labs. documented in this encounterMer[facility]02-[facility]-2025 Telephone encounter Note * Telephone Encounter - Oleg Fields APRN.CNP - 10/20/2024 10:20 AM EST Please let patient know her hepatitis panel is negative. [facility]02-03-2025 Telephone encounter Note* Telephone Encounter - Mae Wong MA - 10/20/2024 10:11 AM EST Pt notified of results via [employer]. Mae Wong Ma [facility]02-03-2025 Miscellaneous Notes* Telephone Encounter - Mae Wong MA - 10/20/2024 10:11 AM EST Pt notified of results via [employer]. Mae Wong Ma * Telephone Encounter - Mae Wong MA - 10/20/2024 10:10 AM EST ----- Message from Girish Lemos MD sent at 10/19/2024 2:20 PM EST ----- Normal alpha fetoprotein level. Follow up with CT chest and referrals as discussed in office. documented in this encounterMer[facility]02-[facility]-2025 Telephone encounter Note * Telephone Encounter - Mae Wong MA - 10/20/2024 10:10 AM EST ----- Message from Girish Lemos MD sent at 10/19/2024 2:20 PM EST ----- Normal alpha fetoprotein level. Follow up with CT chest and referrals as discussed in office. [facility]02-03-2025 Telephone encounter Note* Telephone Encounter - Joyce Cisneros LPN - 10/20/2024 8:34 AM EST Scheduled for CT chest today to find primary. Will need biopsy. Joyce Cisneros LPN [facility]02-03-2025 Telephone encounter Note* Telephone Encounter - Jyotsna Bender - 10/20/2024 8:29 AM EST Patient has consult to Oncology that needs to be scheduled. DX: Liver Masses Insurance: O Medicare Advantage O Referred by: Girish Lemos MD Please review and advise. [facility]02-02-2025 Telephone encounter Note* Telephone Encounter - Girish Lemos MD - 10/19/2024 1:52 PM EST Thank you. [facility]02-02-2025 Miscellaneous Notes* Telephone Encounter - Girish Lemos MD - 10/19/2024 1:52 PM EST Thank you. * Telephone Encounter - Lennox Bellamy MSW - 10/17/2024 3:50 PM EST Sw spoke with patient regarding transportation needs. Patient reports that she does live in [place]. Her spouse takes her to doctor appts, he is just not able to drive early in the morning or late at night, due to vision issues. Patient reports I do think that my Medicare Advantage plan has transportation. Patient will giveher insurance a call to discuss transportation and see if she has that as a benefit. Patient and Sw also discussed [employer] [place]. Sw provided patient with the number for [employer]. [employer] coordinates local [employer] [place] in [place] [place] to address needs of residents. Patient notes that she will check with [employer] if insurance is unable to provide transportation assistance. Sw also provided patient with Sw direct number and discussed other needs ie home care, home delivered meals, financial assistance needs that Sw could help with linking to resources. Patient thanked SW for call and will let Sw know if she has any further needs. documented in this encounterMercy Health [facility]. [facility]01-31-2025 Telephone encounter Note * Telephone Encounter - Lennox Bellamy MSW - 10/17/2024 3:50 PM EST Sw spoke with patient regarding transportation needs. Patient reports that she does live in [place]. Her spouse takes her to doctor appts, he is just not able to drive early in the morning or late at night, due to vision issues. Patient reports I do think that my Medicare Advantage plan has transportation. Patient will giveher insurance a call to discuss transportation and see if she has that as a benefit. Patient and Sw also discussed [employer] [facility]. Sw provided patient with the number for [employer]. [employer] coordinates local [employer] [place] in [place] [facility] to address needs of residents. Patient notes that she will check with [employer] if insurance is unable to provide transportation assistance. Sw also provided patient with Sw direct number and discussed other needs ie home care, home delivered meals, financial assistance needs that Sw could help with linking to resources. Patient thanked SW for call and will let Sw know if she has any further needs. [facility]01-31-2025 NoteHNO ID: [id number] Author: GIRISH LEMOS MD Service: ? Author Type: Physician Type: Progress Notes Filed: 10/17/2024 15:26 Note Text: Chief Complaint Patient presents with: Follow Up: discuss lab results and care plan, diarrhea x 3 days HPI Betsy Rodrigez is a 68 year old female who presents here today for Above Complaints. Patient here today to discuss lab and imaging results. Evaluated by Oleg Fields yesterday with following HPI: Patient presents for abdominal pain x1 month. Patient reports pain is generalized and aching. Also has sensation of a stitch in her right side/RUQ. Reports loose stools x2 days and nausea intermittently but typically worse after eating. Denies vomiting, urinary complaints. Labs reviewable below. CT scan obtained which showed the following: CT ABD/PEL W IV CON: IMPRESSION: 1. Numerous bilobar hepatic masses as described above, highly suspicious for metastatic disease from unknown primary. Additionally, Limited evaluation of the lower chest demonstrates partial visualization of thoracic adenopathy. Would advise further evaluation with a CT of the chest with intravenous contrast at this time. If the site of a primary malignancy is not detected on the chest CT, then percutaneous biopsy could be performed of the liver masses. 2. Mildly enlarged periportal lymph node as described above. The possibility of metastatic adenopathy cannot be excluded. Discussed findings with patient and need for further workup with CT chest with IV contrast and referrals for further workup. States that she is still having RUQ pain, currently 5/10. Treating at home with [place] which Dr. Johnson prescribes for her back without much improvement. Not interested in higher dose pain medicine today, but may reach out to their office. Using zofran for nausea which is not helping. Would like refill. Tolerating small amounts of food, but is pushing PO fluids. Loose stools persist, but improve with imodium. Past medical history, appointments, medications, allergies reviewed. Previous Medical History PAST MEDICAL HISTORY Diagnosis Date Anxiety with depression Chronic back pain Chronic kidney disease (CKD), stage III (moderate) (HCC) Colon polyp tubular adenoma [address] 07/16 to 08/17 DDD (degenerative disc disease), lumbar seeing Dr. Johnson Dysphagia Dr. Stiles Ectopic 1991 GERD (gastroesophageal reflux disease) History of prediabetes Hyperlipidemia Hypertension Hypothyroidism Obesity (BMI 30.0-34.9) Other pulmonary embolism without acute cor pulmonale (HCC) Pneumonia due [place] [facility] Requiring intubation Previous Surgical History PAST SURGICAL HISTORY Procedure Laterality Date APPENDECTOMY 1966 BREAST LUMPECTOMY HX Bilateral BREAST RECONSTRUCTION Right SECTION HX 1973, 1975 CHOLECYSTECTOMY 2016 COLONOSCOPY 2016 repeat in 3 years, Dr. Stiles LYSIS OF ADHESIONS 1978 PAST SURGICAL HISTORY OF 1981 tubal reconstruction PAST SURGICAL HISTORY OF 2013 back surgery, microdiscectomy? PAST SURGICAL HISTORY OF Bilateral vericose vein stripping PAST SURGICAL HISTORY OF Bilateral heel spurs PAST SURGICAL HISTORY OF Bilateral surgery for epicondylitis PAST SURGICAL HISTORY OF cyst removal from eyelids TONSILLECTOMY HX 1957 Family History FAMILY HISTORY Problem Relation Age of Onset Cancer Mother lung Hypertension Mother Cancer Father lung Cancer Brother lung Stroke Maternal Grandmother or [place], patient unsure Coronary Artery Disease Maternal Grandfather No Known Problems Sister Patient Allergies ALLERGIES Allergen Reactions Meagan Inhibitors Rash Codeine Vomiting, Other: See Comments Headache Remeron [Mirtazapin* Other: See Comments Fatigue Plhgnpt-Opj-Cyv Red* Myalgia Michie Unknown Zetia [Ezetimibe] Myalgia Current Medications Current Outpatient Medications on File Prior to Visit Medication Sig losartan (COZAAR) 50 mg tablet Take 1 tablet by mouth once daily. fluticasone (FLONASE) 50 mcg/actuation nasal spray Use 2 Sprays in each nostril once daily. Rinse mouth after use. levothyroxine (SYNTHROID) 25 mcg tablet Take 1 tablet by mouth once daily. potassium chloride (K-TAB) 10 mEq tablet Take two tablets daily NEXLETOL 180 mg tablet once daily. calcium carbonate (CALCIUM 500 ORAL) Take 1,000 mg by mouth once daily. HYDROcodone-acetaminophen (NORCO) 5-325 mg per tablet Take 1 tablet by mouth every 8 hours as needed for pain. albuterol (PROVENTIL) 2.5 mg /3 mL (0.083 %) nebulizer solution Use 3 mL via nebulizer every 4 hours as needed for Wheezing/Shortness of Breath. Use over 5-15minutes. Omeprazole 40 mg capsule Take 1 capsule by mouth twice daily. gabapentin (NEURONTIN) 400 mg capsule Take 400 mg by mouth two times a day. iv contrast (will be provided with radiology test) CT ABD/PEL -Inject, intravenously, once for 1 dose.N (more content not included)...[facility]01-31-2025 History of Present illness Narrative* Girish Lemos MD - 10/17/2024 1:10 PM EST Chief Complaint Patient presents with: Follow Up: discuss lab results and care plan, diarrhea x 3 days HPI Betsy Rodrigez is a 68 year old female who presents here today for Above Complaints. Patient here today to discuss lab and imaging results. Evaluated by Oleg Fields yesterday with following HPI: Patient presents for abdominal pain x1 month. Patient reports pain is generalized and aching. Also has sensation of a stitch in her right side/RUQ. Reports loose stools x2 days and nausea intermittently but typically worse after eating. Denies vomiting, urinary complaints. Labs reviewable below. CT scan obtained which showed the following: CT ABD/PEL W IV CON: IMPRESSION: 1. Numerous bilobar hepatic masses as described above, highly suspicious for metastatic disease from unknown primary. Additionally, Limited evaluation of the lower chest demonstrates partial visualization of thoracic adenopathy. Would advise further evaluation with a CT of the chest with intravenous contrast at this time. If the site of a primary malignancy is not detected on the chest CT, then percutaneous biopsy could be performed of the liver masses. 2. Mildly enlarged periportal lymph node as described above. The possibility of metastatic adenopathy cannot be excluded. Discussed findings with patient and need for further workup with CT chest with IV contrast and referrals for further workup. States that she is still having RUQ pain, currently 5/10. Treating at homewith [place] which Dr. Johnson prescribes for her back without much improvement. Not interested in higher dose pain medicine today, but may reach out to their office. Using zofran for nausea which is not helping. Would like refill. Tolerating small amounts of food, but is pushing PO fluids. Loose stools persist, but improve with imodium. Past medical history, appointments, medications, allergies reviewed. Previous Medical History PAST MEDICAL HISTORY Diagnosis Date Anxiety with depression Chronic back pain Chronic kidney disease (CKD), stage III (moderate) (HCC) Colon polyp tubular adenoma [address] 07/16 to 08/17 DDD (degenerative disc disease), lumbar seeing Dr. Johnson Dysphagia Dr. Stiles Ectopic 1991 GERD (gastroesophageal reflux disease) History of prediabetes Hyperlipidemia Hypertension Hypothyroidism Obesity (BMI 30.0-34.9) Other pulmonary embolism without acute cor pulmonale (HCC) Pneumonia due [place] [facility] Requiring intubation Previous Surgical History PAST SURGICAL HISTORY Procedure Laterality Date APPENDECTOMY 1966 BREAST LUMPECTOMY HX Bilateral BREAST RECONSTRUCTION Right SECTION HX 1973, 1975 CHOLECYSTECTOMY 2016 COLONOSCOPY 2016 repeat in 3 years, Dr. Stiles LYSIS OF ADHESIONS 1978 PAST SURGICAL HISTORY OF 1981 tubal reconstruction PAST SURGICAL HISTORY OF 2013 back surgery, microdiscectomy? PAST SURGICAL HISTORY OF Bilateral vericose vein stripping PAST SURGICAL HISTORY OF Bilateral heel spurs PAST SURGICAL HISTORY OF Bilateral surgery for epicondylitis PAST SURGICAL HISTORY OF cyst removal from eyelids TONSILLECTOMY HX 1957 Family History FAMILY HISTORY Problem Relation Age of Onset Cancer Mother lung Hypertension Mother Cancer Father lung Cancer Brother lung Stroke Maternal Grandmother or [place], patient unsure Coronary Artery Disease Maternal Grandfather No Known Problems Sister Patient Allergies ALLERGIES Allergen Reactions Meagan Inhibitors Rash Codeine Vomiting, Other: See Comments Headache Remeron [Mirtazapin* Other: See Comments Fatigue Etpfyzn-Cow-Fmg Red* Myalgia Michie Unknown Zetia [Ezetimibe] Myalgia Current Medications Current Outpatient Medications on File Prior to Visit Medication Sig losartan (COZAAR) 50 mg tablet Take 1 tablet by mouth once daily. fluticasone (FLONASE) 50 mcg/actuation nasal spray Use 2 Sprays in each nostril once daily. Rinse mouth after use. levothyroxine (SYNTHROID) 25 mcg tablet Take 1 tablet by mouth once daily. potassium chloride (K-TAB) 10 mEq tablet Take two tablets daily NEXLETOL 180 mg tablet once daily. calcium carbonate (CALCIUM 500 ORAL) Take 1,000 mg by mouth once daily. HYDROcodone-acetaminophen (NORCO) 5-325 mg per tablet Take 1 tablet by mouth every 8 hours as needed for pain. albuterol (PROVENTIL) 2.5 mg /3 mL (0.083 %) nebulizer solution Use 3 mL via nebulizer every 4 hours as needed for Wheezing/Shortness of Breath. Use over 5-15minutes. Omeprazole 40 mg capsule Take 1 capsule by mouth twice daily. gabapentin (NEURONTIN) 400 mg capsule Take 400 mg by mouth two times a day. iv contrast (will be provided with radiology test) CT ABD/PEL -Inject, intravenously, once for 1 dose.No IV access, insert saline lock prior to the beginning of sedation, infusion, injection of imaging exam. Discontinue saline lock post exam. If Pt. has a central line or IVAD, may access for administration according to line specific nursing protocol. Once exam is complete flush line and de-accessaccording to line specific nursing protocol in the CT contrast administration guidelines link. enteric contrast (will be provided with radiology test) For CT ABD/PEL W IVCON Routine order Administer, As Directed One Time Only, via Oral, Rectal, both Oral and Rectal, Enteric Tube, Stoma or Indwelling Catheter, Enteric Contrast as designated per enteric contrast guidelines mv,jaci,iron,mn/folic acid/chol (PNCP-PBUY-UKZHR, PABA, ORAL) Take 1 tablet by mouth once daily. (Patient not taking: Reported on 08/22/2022) Minoxidil 2 % external solution Apply 1 mL to affected area twice daily. No current facility-administered medications on file prior to visit. Social History Social History Tobacco Use Smoking status: Former Current packs/day: 0.00 Average packs/day: 1 pack/day for 49.0 years (49.0 ttl pk-yrs) Types: Cigarettes Start date: 08/14/1967 Quit date: 08/14/2016 Years since quittin.1 Smokeless tobacco: Never Substance Use Topics Alcohol use: No Drug use: No Review of Symptoms REVIEW OF SYSTEMS See HPI EXAM: BP 118/70 (BP Site: Left Arm, BP Position: Sitting, BP Cuff Size: Large Adult) Pulse 67 Temp 36.6 C (97.8 F) Resp 12 Ht 160 cm (5' 3) Wt 73.5 kg (162 lb) SpO2 94% BMI 28.70 kg/m General Appearance: Ill appearing, alert, in no acute distress, well-hydrated. Health Maintenance List Mammogram Screening due on 07/16/2020 Colorectal Cancer Screening due on 03/28/2023 Covid-19 Vaccine( season) due on 05/18/2024 BP Controlled (<130/80) due on 06/22/2024 Advance Directive Discussion Never done Lung Cancer Screening due on 01/20/2025 Annual PCP Team Chronic Disease Visit due on 10/16/2025 Serum Creatinine due on 10/16/2025 Diabetes Screening due on 10/16/2027 Lipid Screening due on 02/21/2028 RSV Vaccine(1 - 1-dose 75+ series) due on 2029 Bone Density Screening Completed Influenza Vaccine Completed Hepatitis C Screening Completed Pneumococcal Vaccine: 50+ Completed DTaP,Tdap,Td Vaccine Discontinued Shingrix Vaccine Discontinued Data reviewed Latest Ref Rng 02/20/2023 01/18/2024 07/15/2024 10/16/2024 WBC 3.70 - 11.00 k/uL 4.74 RBC 3.90 - 5.20 m/uL 4.91 Hemoglobin 11.5 - 15.5 g/dL 14.3 Hematocrit 36.0 - 46.0 % 42.8 MCV 80.0 - 100.0 fL 87.2 MCH 26.0 - 34.0 pg 29.1 MCHC 30.5 - 36.0 g/dL 33.4 RDW-CV 11.5 - 15.0 % 13.2 Platelet Count 150 - 400 k/uL 318 MPV 9.0 - 12.7 fL 11.5 Neut% % 55.1 Abs Neut (ANC) 1.45 - 7.50 k/uL 2.61 Lymph% % 27.6 Abs Lymph 1.00 - 4.00 k/uL 1.31 Roosevelt% % 13.9 Abs Roosevelt <0.87 k/uL 0.66 Eosin% % 1.7 Abs Eosin <0.46 k/uL 0.08 Baso% % 1.5 Abs Baso <0.11 k/uL 0.07 Immature Gran % % 0.2 IMMATURE GRANS (ABS) <0.10 k/uL <0.03 NRBC /100 WBC 0.0 Absolute nRBC <0.01 k/uL <0.01 DTYPE Auto Protein, Total 6.3 - 8.0 g/dL 7.2 6.7 6.9 7.3 Albumin 3.9 - 4.9 g/dL 4.3 4.1 4.5 4.3 Calcium 8.5 - 10.2 mg/dL 10.4 (H) 10.0 9.7 10.6 (H) Bilirubin, Total 0.2 - 1.3 mg/dL 0.3 0.3 0.3 0.4 Alkaline Phosphatase 34 - 123 U/L 99 86 86 128 (H) AST 13 - 35 U/L 20 21 27 117 (H) ALT 7 - 38 U/L 13 16 20 43 (H) Glucose 74 - 99 mg/dL 98 92 81 108 (H) BUN 7 - 21 mg/dL 15 12 15 16 Creatinine 0.58 - 0.96 mg/dL 1.00 (H) 0.90 0.90 0.86 Sodium 136 - 144 mmol/L 143 142 144 140 Potassium 3.7 - 5.1 mmol/L 4.7 3.9 3.8 4.3 Chloride 98 - 107 mmol/L 107 (H) 106 (H) 108 (H) 106 CO2 22 - 30 mmol/L 24 23 25 27 Anion Gap 8 - 15 mmol/L 12 13 11 7 (L) eGFR >=60 mL/min/1.73m 61 69 69 73 Lipase 16 - 61 U/L 77 (H) Legend: (H) High (L) Low ASSESSMENT/PLAN: 1. Liver masses - ICD9: 573.8, ICD10: R16.0 (primary diagnosis) Symptoms are likely 2/2 liver masses and will need further workup for malignancy. Obtain labs as ordered today. Referral to hepatology for liver biopsy depending on CT chest results. Referral order to oncology placed, but patient notified she would not see them likely until after additional resultsand biopsies come back. Given referral to social work to assist with transportation needs. Will notify her pain management physician of new findings and that she may need more aggressive pain control. Discussed bland diet and will refill zofran for nausea. Push PO fluids. Red flags for re-assessment reviewed with patient in detail. - CT CHEST W IVCON - IV CONTRAST (RADIOLOGY PROCEDURE) - NOT ON MAR - CONSULT TO ONCOLOGY - PRIMARY CARE SOCIAL WORK CONSULT - ALPHA FETOPROTEIN 2. RUQ abdominal pain - ICD9: 789.01, ICD10: R10.11 See above 3. Nausea and vomiting, unspecified vomiting type - ICD9: 787.01, ICD10: R11.2 See above - ONDANSETRON 4 MG DISINTEGRATING TABLET 4. Diarrhea, unspecified type - ICD9: 787.91, ICD10: R19.7 See above. I spent a total of 30 minutes on the date of the service which included preparing to see the patient, [id number] patient care, completing clinical documentation, obtaining and/or reviewing separately obtained history, performing a medically appropriate examination, counseling and educating the pat ient/family/caregiver, and ordering medications, tests, or procedures. Girish Lemos MD [facility] Telephone encounter Note * Telephone Encounter - Arin Muñoz MA - 10/16/2024 3:00 PM EST Pt notified and scheduled for a follow up tomorrow Arin Muñoz MA [facility]01-30-2025 Telephone encounter Note* Telephone Encounter - Oleg Fields APRN.CNP - 10/16/2024 1:33 PM EST Please call patient and schedule follow up with Dr. Lemos for tomorrow to discuss results and care plan. Also let patient know I have ordered follow up labs. [facility]01-30-2025 NoteHNO ID: [id number] Author: OLEG FIELDS APRN.CNP Service: ? Author Type: Nurse Practitioner Type: Progress Notes Filed: 10/16/2024 08:53 Note Text: Chief Complaint Patient presents with: Abdominal Pain: X 1 month HPI Betsy Rodrigez is a 68 year old female who presents here today for Above Complaints.. Patient presents for abdominal pain x1 month. Patient reports pain is generalized and aching. Also has sensation of a stitch in her right side/RUQ. Reports loose stools x2 days and nausea intermittently but typically worse after eating. Denies vomiting, urinary complaints. Past medical history, appointments, medications, allergies reviewed. Previous Medical History PAST MEDICAL HISTORY Diagnosis Date Anxiety with depression Chronic back pain Chronic kidney disease (CKD), stage III (moderate) (HCC) Colon polyp tubular adenoma [address] 07/16 to 08/17 DDD (degenerative disc disease), lumbar seeing Dr. Johnson Dysphagia Dr. Stiles Ectopic 1991 GERD (gastroesophageal reflux disease) History of prediabetes Hyperlipidemia Hypertension Hypothyroidism Obesity (BMI 30.0-34.9) Other pulmonary embolism without acute cor pulmonale (HCC) Pneumonia due to [place]- virus Requiring intubation Previous Surgical History PAST SURGICAL HISTORY Procedure Laterality Date APPENDECTOMY 1966 BREAST LUMPECTOMY HX Bilateral BREAST RECONSTRUCTION Right SECTION HX 1973, 1975 CHOLECYSTECTOMY 2016 COLONOSCOPY 2016 repeat in 3 years, Dr. Stiles LYSIS OF ADHESIONS 1978 PAST SURGICAL HISTORY OF 1981 tubal reconstruction PAST SURGICAL HISTORY OF 2013 back surgery, microdiscectomy? PAST SURGICAL HISTORY OF Bilateral vericose vein stripping PAST SURGICAL HISTORY OF Bilateral heel spurs PAST SURGICAL HISTORY OF Bilateral surgery for epicondylitis PAST SURGICAL HISTORY OF cyst removal from eyelids TONSILLECTOMY HX 1957 Family History FAMILY HISTORY Problem Relation Age of Onset Cancer Mother lung Hypertension Mother Cancer Father lung Cancer Brother lung Stroke Maternal Grandmother or [place], patient unsure Coronary Artery Disease Maternal Grandfather No Known Problems Sister Patient Allergies ALLERGIES Allergen Reactions Meagan Inhibitors Rash Codeine Vomiting, Other: See Comments Headache Remeron [Mirtazapin* Other: See Comments Fatigue Wfjxytn-Btu-Iso Red* Myalgia Michie Unknown Zetia [Ezetimibe] Myalgia Current Medications Current Outpatient Medications on File Prior to Visit Medication Sig losartan (COZAAR) 50 mg tablet Take 1 tablet by mouth once daily. fluticasone (FLONASE) 50 mcg/actuation nasal spray Use 2 Sprays in each nostril once daily. Rinse mouth after use. levothyroxine (SYNTHROID) 25 mcg tablet Take 1 tablet by mouth once daily. potassium chloride (K-TAB) 10 mEq tablet Take two tablets daily NEXLETOL 180 mg tablet once daily. calcium carbonate (CALCIUM 500 ORAL) Take 1,000 mg by mouth once daily. HYDROcodone-acetaminophen (NORCO) 5-325 mg per tablet Take 1 tablet by mouth every 8 hours as needed for pain. mv,jaci,iron,mn/folic acid/chol (FDXZ-NUJO-LEUEO, PABA, ORAL) Take 1 tablet by mouth once daily. (Patient not taking: Reported on 08/22/2022) Minoxidil 2 % external solution Apply 1 mL to affected area twice daily. albuterol (PROVENTIL) 2.5 mg /3 mL (0.083 %) nebulizer solution Use 3 mL via nebulizer every 4 hours as needed for Wheezing/Shortness of Breath. Use over 5-15minutes. Omeprazole 40 mg capsule Take 1 capsule by mouth twice daily. gabapentin (NEURONTIN) 400 mg capsule Take 400 mg by mouth two times a day. No current facility-administered medications on file prior to visit. Social History Social History Tobacco Use Smoking status: Former Current packs/day: 0.00 Average packs/day: 1 pack/day for 49.0 years (49.0 ttl pk-yrs) Types: Cigarettes Start date: 08/14/1967 Quit date: 08/14/2016 Years since quittin.1 Smokeless tobacco: Never Substance Use Topics Alcohol use: No Drug use: No Review of Symptoms REVIEW OF SYSTEMS SEE HPI EXAM: BP 144/80 Pulse 74 Resp 14 Wt 73.9 kg (163 lb) BMI 28.87 kg/m? General Appearance: Well appearing, alert, in no acute distress, well-hydrated, well nourished. Abdomen: Negative findings: umbilicus normal, symmetric, no masses palpable, and bowel sounds normal, Positive findings: distended, tenderness moderate epigastric, RLQ, LLQ, and mild generalized. Health Maintenance List Mammogram Screening due on 07/16/2020 Colorectal Cancer Screening due on 03/28/2023 Covid-19 Vaccine( season) due on 05/18/2024 Advance Directive Discussion Never done Lung Cancer Screening due on 01/20/2025 Serum Creatinine due on 07/15/2025 Annual PCP Team Chronic Disease Visit due on 09/19/2025 BP Controlled (<130/80) due on 09/19/2025 Diabetes Screening due on 07/15/2027 Lipid Screeni (more content not included)...[facility]01-30-2025 History of Present illness Narrative* Oleg Fields APRN.RADIATION ENGINEER - 10/16/2024 8:38 AM EST Chief Complaint Patient presents with: Abdominal Pain: X 1 month HPI Betsy Rodrigez is a 68 year old female who presents here today for Above Complaints.. Patient presents for abdominal pain x1 month. Patient reports pain is generalized and aching. Also has sensation of a stitch in her right side/RUQ. Reports loose stools x2 days and nausea intermittently but typically worse after eating. Denies vomiting, urinary complaints. Past medical history, appointments, medications, allergies reviewed. Previous Medical History PAST MEDICAL HISTORY Diagnosis Date Anxiety with depression Chronic back pain Chronic kidney disease (CKD), stage III (moderate) (HCC) Colon polyp tubular adenoma [address] 07/16 to 08/17 DDD (degenerative disc disease), lumbar seeing Dr. Johnson Dysphagia Dr. Stiles Ectopic 1991 GERD (gastroesophageal reflux disease) History of prediabetes Hyperlipidemia Hypertension Hypothyroidism Obesity (BMI 30.0-34.9) Other pulmonary embolism without acute cor pulmonale (HCC) Pneumonia due to [place] [address] virus Requiring intubation Previous Surgical History PAST SURGICAL HISTORY Procedure Laterality Date APPENDECTOMY 1966 BREAST LUMPECTOMY HX Bilateral BREAST RECONSTRUCTION Right SECTION HX 1973, 1975 CHOLECYSTECTOMY 2016 COLONOSCOPY 2016 repeat in 3 years, Dr. Stiles LYSIS OF ADHESIONS 1978 PAST SURGICAL HISTORY OF 1981 tubal reconstruction PAST SURGICAL HISTORY OF 2013 back surgery, microdiscectomy? PAST SURGICAL HISTORY OF Bilateral vericose vein stripping PAST SURGICAL HISTORY OF Bilateral heel spurs PAST SURGICAL HISTORY OF Bilateral surgery for epicondylitis PAST SURGICAL HISTORY OF cyst removal from eyelids TONSILLECTOMY HX 1957 Family History FAMILY HISTORY Problem Relation Age of Onset Cancer Mother lung Hypertension Mother Cancer Father lung Cancer Brother lung Stroke Maternal Grandmother or [place], patient unsure Coronary Artery Disease Maternal Grandfather No Known Problems Sister Patient Allergies ALLERGIES Allergen Reactions Meagan Inhibitors Rash Codeine Vomiting, Other: See Comments Headache Remeron [Mirtazapin* Other: See Comments Fatigue Ytaxiwq-Ujy-Znn Red* Myalgia Michie Unknown Zetia [Ezetimibe] Myalgia Current Medications Current Outpatient Medications on File Prior to Visit Medication Sig losartan (COZAAR) 50 mg tablet Take 1 tablet by mouth once daily. fluticasone (FLONASE) 50 mcg/actuation nasal spray Use 2 Sprays in each nostril once daily. Rinse mouth after use. levothyroxine (SYNTHROID) 25 mcg tablet Take 1 tablet by mouth once daily. potassium chloride (K-TAB) 10 mEq tablet Take two tablets daily NEXLETOL 180 mg tablet once daily. calcium carbonate (CALCIUM 500 ORAL) Take 1,000 mg by mouth once daily. HYDROcodone-acetaminophen (NORCO) 5-325 mg per tablet Take 1 tablet by mouth every 8 hours as needed for pain. mv,jaci,iron,mn/folic acid/chol (NGNH-[id number]-KDHSI, PABA, ORAL) Take 1 tablet by mouth once daily. (Patient not taking: Reported on 08/22/2022) Minoxidil 2 % external solution Apply 1 mL to affected area twice daily. albuterol (PROVENTIL) 2.5 mg /3 mL (0.083 %) nebulizer solution Use 3 mL via nebulizer every 4 hours as needed for Wheezing/Shortness of Breath. Use over 5-15minutes. Omeprazole 40 mg capsule Take 1 capsule by mouth twice daily. gabapentin (NEURONTIN) 400 mg capsule Take 400 mg by mouth two times a day. No current facility-administered medications on file prior to visit. Social History Social History Tobacco Use Smoking status: Former Current packs/day: 0.00 Average packs/day: 1 pack/day for 49.0 years (49.0 ttl pk-yrs) Types: Cigarettes Start date: 08/14/1967 Quit date: 08/14/2016 Years since quittin.1 Smokeless tobacco: Never Substance Use Topics Alcohol use: No Drug use: No Review of Symptoms REVIEW OF SYSTEMS SEE HPI EXAM: BP 144/80 Pulse 74 Resp 14 Wt 73.9 kg (163 lb) BMI 28.87 kg/m General Appearance: Well appearing, alert, in no acute distress, well-hydrated, well nourished. Abdomen: Negative findings: umbilicus normal, symmetric, no masses palpable, and bowel sounds normal, Positive findings: distended, tenderness moderate epigastric, RLQ, LLQ, and mild generalized. Health Maintenance List Mammogram Screening due on 07/16/2020 Colorectal Cancer Screening due on 03/28/2023 Covid-19 Vaccine() due on 05/18/2024 Advance Directive Discussion Never done Lung Cancer Screening due on 01/20/2025 Serum Creatinine due on 07/15/2025 Annual PCP Team Chronic Disease Visit due on 09/19/2025 BP Controlled (<130/80) due on 09/19/2025 Diabetes Screening due on 07/15/2027 Lipid Screening due on 02/21/2028 RSV Vaccine(1 - 1-dose 75+ series) due on 2029 Bone Density Screening Completed Influenza Vaccine Completed Hepatitis C Screening Completed Pneumococcal Vaccine: 50+ Completed DTaP,Tdap,Td Vaccine Discontinued Shingrix Vaccine Discontinued ASSESSMENT/PLAN: 1. Generalized abdominal pain - ICD9: 789.07, ICD10: R10.84 (primary diagnosis) - Labs of CBC with Diff, CMP, Amylase, and Lipase - Work up with CT Abdomen/Pelvis - COMPLETE BLOOD COUNT AND DIFFERENTIAL - COMPREHENSIVE METABOLIC PANEL - LIPASE - AMYLASE - CT ABD/PEL W IVCON - IV CONTRAST (RADIOLOGY PROCEDURE) - NOT ON MAR - ENTERIC CONTRAST (RADIOLOGY PROCEDURE) - NOT ON NOV 2. Diarrhea, unspecified type - ICD9: 787.91, ICD10: R19.7 - CT ABD/PEL W IVCON 3. Nausea - ICD9: 787.02, ICD10: R11.0 - CT ABD/PEL W IVCON Oleg Fields APRN.RADIATION ENGINEER documented in [facility] Telephone encounter Note * Telephone Encounter - Phylicia Heredia RN - 10/15/2024 8:27 AM EST Patient calls for stomach discomfort. Nurse triage completed. Protocol recommends see provider within 24 hours. Patient not able to come in for appt with PCP dyad. Patient able to come in with [facility] provider at a different time. Appt scheduled. Care advice reviewed. Patient verbalizes understanding. Reason for Disposition [1] MODERATE pain (e.g., interferes with normal activities) AND [2] pain comes and goes (cramps) AND [3] present > 24 hours (Exception: Pain with Vomiting or Diarrhea - see that Guideline.) Answer Assessment - Initial Assessment Questions 1. LOCATION: Patient reports mid abdomen around the umbilicus. 2. RADIATION: No radiation 3. ONSET: Over a month ago. 4. SUDDEN: Patient not really sure. She reports she had Covid and noticed afterwards that it didn'tget any better. 5. PATTERN: Feels like it is always there but fluctuates in intensity. Mild to moderate. 6. SEVERITY: - MODERATE (4-7): Interferes with normal activities or awakens from sleep, abdomen tender to touch. 7. RECURRENT SYMPTOM: Patient reports history of indigestion and GERD. 8. CAUSE: Patient not certain. 9. RELIEVING/AGGRAVATING FACTORS: No relieving or worsening factors. Patient takes omeprazole and Pepto bismol and hasn't noticed a difference. 10. OTHER SYMPTOMS: No back pain, diarrhea, fever, urination pain, vomiting Protocols used: Abdominal Pain - Theerz-FUTEO-LK [facility]01-29-[facility] Miscellaneous Notes* Telephone Encounter - Phylicia Heredia RN - 10/15/2024 8:27 AM EST Patient calls for stomach discomfort. Nurse triage completed. Protocol recommends see provider within 24 hours. Patient not able to come in for appt with PCP dyad. [facility] Appt scheduled. Care advice reviewed. Patient verbalizes understanding. Reason for Disposition [1] MODERATE pain (e.g., interferes with normal activities) AND [2] pain comes and goes (cramps) AND [3] present > 24 hours (Exception: Pain with Vomiting or Diarrhea - see that Guideline.) Answer Assessment - Initial Assessment Questions 1. LOCATION: Patient reports mid abdomen around the umbilicus. 2. RADIATION: No radiation 3. ONSET: Over a month ago. 4. SUDDEN: Patient not really sure. She reports she had Covid and noticed afterwards that it didn'tget any better. 5. PATTERN: Feels like it is always there but fluctuates in intensity. Mild to moderate. 6. SEVERITY: - MODERATE (4-7): Interferes with normal activities or awakens from sleep, abdomen tender to touch. 7. RECURRENT SYMPTOM: Patient reports history of indigestion and GERD. 8. CAUSE: Patient not certain. 9. RELIEVING/AGGRAVATING FACTORS: No relieving or worsening factors. Patient takes omeprazole and Pepto bismol and hasn't noticed a difference. 10. OTHER SYMPTOMS: No back pain, diarrhea, fever, urination pain, vomiting Protocols used: Abdominal Pain - [id number] documented in this encounterMer[facility]. [facility]01-[facility]25 NoteHNO ID: [id number] Author: GIRISH LEMOS MD Service: ? Author Type: Physician Type: Progress Notes Filed: 09/19/2024 13:08 Note Text: Chief Complaint Patient presents with: Blood Pressure: Recheck-losartan increased to 50mg.No note of call back from [facility] [place] around 09/03/24 as requested with readings. Patient reports am readings higher but was advised by visiting nurse to take prior to medication. HPI Betsy Rodrigez is a 68 year old female who presents here today for Above Complaints. HTN: Ms. Rodrigez indicates that she is feeling well and denies any symptoms referable to elevated blood pressure. Patient's losartan increased to 50 mg daily at last OV. Specifically denies chest pain, palpitations, dyspnea, and peripheral edema. Admits to occasional headaches. Patient denies any side effects of her medication(s) and is compliant with their regimen. She does check BP's away from this office with average BP's in the 130/70's range. Betsy denies regular aerobic exercise. She watches her diet for sodium, low fat and low cholesterol some of the time. Last 3 Encounter BP Readings: Date: BP: 09/19/2024 124/68 08/19/2024 164/82[ROSALVA BP[ 07/15/2024 157/80[ROSALVA BP[ Past medical history, appointments, medications, allergies reviewed. Previous Medical History PAST MEDICAL HISTORY Diagnosis Date Anxiety with depression Chronic back pain Chronic kidney disease (CKD), stage III (moderate) (HCC) Colon polyp tubular adenoma [address] 07/16 to 08/17 DDD (degenerative disc disease), lumbar seeing Dr. Johnson Dysphagia Dr. Stiles Ectopic 1991 GERD (gastroesophageal reflux disease) History of prediabetes Hyperlipidemia Hypertension Hypothyroidism Obesity (BMI 30.0-34.9) Other pulmonary embolism without acute cor pulmonale (HCC) Pneumonia due to [place] [address] virus Requiring intubation Previous Surgical History PAST SURGICAL HISTORY Procedure Laterality Date APPENDECTOMY 1967 BREAST LUMPECTOMY HX Bilateral BREAST RECONSTRUCTION Right SECTION HX 1974, 1975 CHOLECYSTECTOMY 2016 COLONOSCOPY 2016 repeat in 3 years, Dr. Stiles LYSIS OF ADHESIONS 1978 PAST SURGICAL HISTORY OF 1981 tubal reconstruction PAST SURGICAL HISTORY OF 2013 back surgery, microdiscectomy? PAST SURGICAL HISTORY OF Bilateral vericose vein stripping PAST SURGICAL HISTORY OF Bilateral heel spurs PAST SURGICAL HISTORY OF Bilateral surgery for epicondylitis PAST SURGICAL HISTORY OF cyst removal from eyelids TONSILLECTOMY HX 1957 Family History FAMILY HISTORY Problem Relation Age of Onset Cancer Mother lung Hypertension Mother Cancer Father lung Cancer Brother lung Stroke Maternal Grandmother or [place], patient unsure Coronary Artery Disease Maternal Grandfather No Known Problems Sister Patient Allergies ALLERGIES Allergen Reactions Meagan Inhibitors Rash Codeine Vomiting, Other: See Comments Headache Remeron [Mirtazapin* Other: See Comments Fatigue [facility]-Xfr-Cbi Red* Myalgia Michie Unknown Zetia [Ezetimibe] Myalgia Current Medications Current Outpatient Medications on File Prior to Visit Medication Sig losartan (COZAAR) 50 mg tablet Take 1 tablet by mouth once daily. fluticasone (FLONASE) 50 mcg/actuation nasal spray Use 2 Sprays in each nostril once daily. Rinse mouth after use. levothyroxine (SYNTHROID) 25 mcg tablet Take 1 tablet by mouth once daily. potassium chloride (K-TAB) 10 mEq tablet Take two tablets daily NEXLETOL 180 mg tablet once daily. calcium carbonate (CALCIUM 500 ORAL) Take 1,000 mg by mouth once daily. HYDROcodone-acetaminophen (NORCO) 5-325 mg per tablet Take 1 tablet by mouth every 8 hours as needed for pain. albuterol (PROVENTIL) 2.5 mg /3 mL (0.083 %) nebulizer solution Use 3 mL via nebulizer every 4 hours as needed for Wheezing/Shortness of Breath. Use over 5-15minutes. Omeprazole 40 mg capsule Take 1 capsule by mouth twice daily. gabapentin (NEURONTIN) 400 mg capsule Take 400 mg by mouth two times a day. mv,jaci,iron,mn/folic acid/chol ([id number]-HMVO-QYEAD, PABA, ORAL) Take 1 tablet by mouth once daily. (Patient not taking: Reported on 08/22/2022) Minoxidil 2 % external solution Apply 1 mL to affected area twice daily. No current facility-administered medications on file prior to visit. Social History Social History Tobacco Use Smoking status: Former Current packs/day: 0.00 Average packs/day: 1 pack/day for 49.0 years (49.0 ttl pk-yrs) Types: Cigarettes Start date: 08/14/1967 Quit date: 08/14/2016 Years since quittin.1 Smokeless tobacco: Never Substance Use Topics Alcohol use: No Drug use: No Review of Symptoms REVIEW OF SYSTEMS See HPI EXAM: BP 124/68 Pulse 73 Resp 18 Wt 74.9 kg (165 lb 3.2 oz) SpO2 98% BMI 29.26 kg/m? General Appearance: Well appearing, alert, in no acute distress, well-hydrated, well nouris (more content not included)...[facility]01-03-2025 History of Present illness Narrative* Girish Lemos MD - 09/19/2024 9:57 AM EST Chief Complaint Patient presents with: Blood Pressure: Recheck-losartan increased to 50mg.No note of call back from [facility] 09/03/24 as requested with readings. Patient reports am readings higher but was advised by visiting nurse to take prior to medication. HPI Betsy Rodrigez is a 68 year old female who presents here today for Above Complaints. HTN: Ms. Rodrigez indicates that she is feeling well and denies any symptoms referable to elevated blood pressure. Patient's losartan increased to 50 mg daily at last OV. Specifically denies chest pain, palpitations, dyspnea, and peripheral edema. Admits to occasional headaches. Patient denies any side effects of her medication(s) and is compliant with their regimen. She does check BP's away from this office with average BP's in the 130/70's range. Betsy denies regular aerobic exercise. She watches her diet for sodium, low fat and low cholesterol some of the time. Last 3 Encounter BP Readings: Date: BP: 09/19/2024 124/68 08/19/2024 164/82[ROSALVA BP[ 07/15/2024 157/80[ROSALVA BP[ Past medical history, appointments, medications, allergies reviewed. Previous Medical History PAST MEDICAL HISTORY Diagnosis Date Anxiety with depression Chronic back pain Chronic kidney disease (CKD), stage III (moderate) (HCC) Colon polyp tubular adenoma [address] 07/16 to 08/17 DDD (degenerative disc disease), lumbar seeing Dr. Johnson Dysphagia Dr. Stiles Ectopic 1991 GERD (gastroesophageal reflux disease) History of prediabetes Hyperlipidemia Hypertension Hypothyroidism Obesity (BMI 30.0-34.9) Other pulmonary embolism without acute cor pulmonale (HCC) Pneumonia due to COVID-19 virus Requiring intubation Previous Surgical History PAST SURGICAL HISTORY Procedure Laterality Date APPENDECTOMY 1966 BREAST LUMPECTOMY HX Bilateral BREAST RECONSTRUCTION Right SECTION HX 1974, 1976 CHOLECYSTECTOMY 2016 COLONOSCOPY 2016 repeat in 3 years, Dr. Stiles LYSIS OF ADHESIONS 1978 PAST SURGICAL HISTORY OF 1981 tubal reconstruction PAST SURGICAL HISTORY OF 2013 back surgery, microdiscectomy? PAST SURGICAL HISTORY OF Bilateral vericose vein stripping PAST SURGICAL HISTORY OF Bilateral heel spurs PAST SURGICAL HISTORY OF Bilateral surgery for epicondylitis PAST SURGICAL HISTORY OF cyst removal from eyelids TONSILLECTOMY HX 1957 Family History FAMILY HISTORY Problem Relation Age of Onset Cancer Mother lung Hypertension Mother Cancer Father lung Cancer Brother lung Stroke Maternal Grandmother or [place], patient unsure Coronary Artery Disease Maternal Grandfather No Known Problems Sister Patient Allergies ALLERGIES Allergen Reactions Meagan Inhibitors Rash Codeine Vomiting, Other: See Comments Headache Remeron [Mirtazapin* Other: See Comments Fatigue Xsrrknw-Vke-Uwc Red* Myalgia Michie Unknown Zetia [Ezetimibe] Myalgia Current Medications Current Outpatient Medications on File Prior to Visit Medication Sig losartan (COZAAR) 50 mg tablet Take 1 tablet by mouth once daily. fluticasone (FLONASE) 50 mcg/actuation nasal spray Use 2 Sprays in each nostril once daily. Rinse mouth after use. levothyroxine (SYNTHROID) 25 mcg tablet Take 1 tablet by mouth once daily. potassium chloride (K-TAB) 10 mEq tablet Take two tablets daily NEXLETOL 180 mg tablet once daily. calcium carbonate (CALCIUM 500 ORAL) Take 1,000 mg by mouth once daily. HYDROcodone-acetaminophen (NORCO) 5-325 mg per tablet Take 1 tablet by mouth every 8 hours as needed for pain. albuterol (PROVENTIL) 2.5 mg /3 mL (0.083 %) nebulizer solution Use 3 mL via nebulizer every 4 hours as needed for Wheezing/Shortness of Breath. Use over 5-15minutes. Omeprazole 40 mg capsule Take 1 capsule by mouth twice daily. gabapentin (NEURONTIN) 400 mg capsule Take 400 mg by mouth two times a day. mv,jaci,iron,mn/folic acid/chol (FZOV-LMSF-NDNOB, PABA, ORAL) Take 1 tablet by mouth once daily. (Patient not taking: Reported on 08/22/2022) Minoxidil 2 % external solution Apply 1 mL to affected area twice daily. No current facility-administered medications on file prior to visit. Social History Social History Tobacco Use Smoking status: Former Current packs/day: 0.00 Average packs/day: 1 pack/day for 49.0 years (49.0 ttl pk-yrs) Types: Cigarettes Start date: 08/14/1967 Quit date: 08/14/2016 Years since quittin.1 Smokeless tobacco: Never Substance Use Topics Alcohol use: No Drug use: No Review of Symptoms REVIEW OF SYSTEMS See HPI EXAM: BP 124/68 Pulse 73 Resp 18 Wt 74.9 kg (165 lb 3.2 oz) SpO2 98% BMI 29.26 kg/m General Appearance: Well appearing, alert, in no acute distress, well-hydrated, well nourished.. Skin: Skin color, texture, turgor normal, no suspicious rashes or lesions. Lungs: Lungs clear to auscultation. No wheezing, rhonchi, rales.. Heart: RRR without murmur, gallop, or rubs. No ectopy. Abdomen: Normal abdominal exam, Abdomen soft, non-tender. Bowel sounds normal. No masses, organomegaly. Extremities: No deformities, edema, skin discoloration, clubbing or cyanosis. Good capillary refill. . Health Maintenance List Mammogram Screening due on 07/16/2020 Colorectal Cancer Screening due on 03/28/2023 Covid-19 Vaccine( season) due on 05/18/2024 BP Controlled (<130/80) due on 06/22/2024 Advance Directive Discussion Never done Lung Cancer Screening due on 01/20/2025 Serum Creatinine due on 07/15/2025 Annual PCP Team Chronic Disease Visit due on 08/19/2025 Diabetes Screening due on 07/15/2027 Lipid Screening due on 02/21/2028 RSV Vaccine(1 - 1-dose 75+ series) due on 2029 Bone Density Screening Completed Influenza Vaccine Completed Hepatitis C Screening Completed Pneumococcal Vaccine: 50+ Completed DTaP,Tdap,Td Vaccine Discontinued Shingrix Vaccine Discontinued ASSESSMENT/PLAN: 1. Primary hypertension - ICD9: 401.9, ICD10: I10 - Controlled - Continue current medications - Recommend home blood pressure monitoring, to bring results to next visit - Encouraged sodium restriction, DASH or Mediterranean diet - Recommend regular aerobic exercise Girish Lemos MD documented in this encounter[facility]12[facility] Telephone encounter Note * Telephone Encounter - Rachael Baker RN - 08/27/2024 10:50 AM EST Jeanne- [facility] [place] called and is notified of providers message and instructions. She voices understanding and will send updated Bps in one week. Rachael Baker RN [facility]12-11-2024 Miscellaneous Notes* Telephone Encounter - Rachael Baker RN - 08/27/2024 10:50 AM EST Jeanne- [facility] [place] called and is notified of providers message and instructions. She voices understanding and will send updated Bps in one week. Rachael Baker RN * Telephone Encounter - Girish Lemos MD - 08/27/2024 10:15 AM EST BP still high on this dosage after about 1 week. Please send updated BP in 1 week. If still high then, will increase to 100 mg daily. * Telephone Encounter - Marta Meadows RN - 08/27/2024 9:33 AM EST Jeanne- [facility] [place]- reports she received a referral from patient's insurance company, once patient's losartan was increased, for their 3 mth monitoring program. [facility] monitors quality of life, checks VS's, monitor's BP's, POX, weight, educates on salt intake, all with goal of keeping patient out of the hospital. Insurance usually sends a letter to pcp to let pcp know they have enrolled patient in the monitoring program. Pt's losartan was increased from 25 mg to 50 mg on 08-19-24. Jeanne noted BP readings are higher in the mornings (before medication), and lower in the afternoons: on 08-25 BP at 8 am: 168/88, at 4 pm: 148/85, on 08-26 BP at 8 am: 173/89, at 4 pm: 153/89. HR isrunning 55-62, POX is stable, weight is stable. Jeanne will fax VS readings to pcp after seeing patient for 3 weeks. Given fax number. documented in [facility]12-[facility]24 Telephone encounter Note * Telephone Encounter - Girish Lemos MD - 08/27/2024 10:15 AM EST BP still high on this dosage after about 1 week. Please send updated BP in 1 week. If still high then, will increase to 100 mg daily. [facility]12-11-[facility]24 Telephone encounter Note* Telephone Encounter - Marta Meadows RN - 08/27/2024 9:33 AM EST Jeanne- [facility] [place]- reports she received a referral from patient's insurance company, once patient's losartan was increased, for their 3 mth monitoring program. [facility] monitors quality of life, checks VS's, monitor's BP's, POX, weight, educates on salt intake, all with goal of keeping patient out of the hospital. Insurance usually sends a letter to pcp to let pcp know they have enrolled patient in the monitoring program. Pt's losartan was increased from 25 mg to 50 mg on 08-19-24. Jeanne noted BP readings are higher in the mornings (before medication), and lower in the afternoons: on 08-25 BP at 8 am: 168/88, at 4 pm: 148/85, on 08-26 BP at 8 am: 173/89, at 4 pm: 153/89. HR isrunning 55-62, POX is stable, weight is stable. Jeanne will fax VS readings to pcp after seeing patient for 3 weeks. Given fax number. [facility]12-03-[facility] History of Present illness Narrative* MaksimlogarJeanette APRN.RADIATION ENGINEER - 08/19/2024 10:20 AM EST 08/19/2024 Patient presents with: BP Check SUBJECTIVE: This is a 68 year old that is here today for Above Complaints. BP elevated at last office appointment. No medication changes made at that time. Not checking BP athome. Denies visual changes, headaches, dizziness, lightheadedness, slurred speech, facial drooping, extremity numbness, tingling or weakness PAST MEDICAL HISTORY Diagnosis Date Anxiety with depression Chronic back pain Chronic kidney disease (CKD), stage III (moderate) (HCC) Colon polyp tubular adenoma [address] 07/16 to 08/17 DDD (degenerative disc disease), lumbar seeing Dr. Johnson Dysphagia Dr. Stiles Ectopic 1991 GERD (gastroesophageal reflux disease) History of prediabetes Hyperlipidemia Hypertension Hypothyroidism Obesity (BMI 30.0-34.9) Other pulmonary embolism without acute cor pulmonale (HCC) Pneumonia due to [place] [address] virus Requiring intubation ALLERGIES Meagan Inhibitors, Codeine, Remeron [Mirtazapine], Rtnxodi-Flz-Uoa Reductase Inhibitors, Michie, and Zetia [Ezetimibe] MEDICATIONS Current Outpatient Medications Medication Sig fluticasone (FLONASE) 50 mcg/actuation nasal spray Use 2 Sprays in each nostril once daily. Rinse mouth after use. levothyroxine (SYNTHROID) 25 mcg tablet Take 1 tablet by mouth once daily. potassium chloride (K-TAB) 10 mEq tablet Take two tablets daily losartan (COZAAR) 25 mg tablet Take 1 tablet by mouth once daily. NEXLETOL 180 mg tablet once daily. (Patient not taking: Reported on 01/08/2024) calcium carbonate (CALCIUM 500 ORAL) Take 1,000 mg by mouth once daily. HYDROcodone-acetaminophen (NORCO) 5-325 mg per tablet Take 1 tablet by mouth every 8 hours as needed for pain. mv,jaci,iron,mn/folic acid/chol (UMXD-WAEM-OJDKB, PABA, ORAL) Take 1 tablet by mouth once daily. (Patient not taking: Reported on 08/22/2022) Minoxidil 2 % external solution Apply 1 mL to affected area twice daily. albuterol (PROVENTIL) 2.5 mg /3 mL (0.083 %) nebulizer solution Use 3 mL via nebulizer every 4 hours as needed for Wheezing/Shortness of Breath. Use over 5-15minutes. Omeprazole 40 mg capsule Take 1 capsule by mouth twice daily. gabapentin (NEURONTIN) 400 mg capsule Take 400 mg by mouth two times a day. No current facility-administered medications for this visit. Medications and allergies reviewed by this provider. SOCIAL HISTORY Social History Tobacco Use Smoking status: Former Current packs/day: 0.00 Average packs/day: 1 pack/day for 49.0 years (49.0 ttl pk-yrs) Types: Cigarettes Start date: 08/14/1967 Quit date: 08/14/2016 Years since quittin.0 Smokeless tobacco: Never Substance Use Topics Alcohol use: No Drug use: No REVIEW OF SYSTEMS All other reviewed and negative other than HPI. OBJECTIVE: BP 162/84 Pulse (!) 58 Resp 18 Wt 77.2 kg (170 lb 3.1 oz) SpO2 98% BMI 30.15 kg/m . Vitalsigns reviewed by this provider. APPEARANCE Well appearing, alert, in no acute distress, well-hydrated, well nourished. Mammogram Screening due on 07/16/2020 Colorectal Cancer Screening due on 03/28/2023 Advance Directive Discussion Never done Covid-19 Vaccine() due on 05/18/2024 BP Controlled (<130/80) due on 06/22/2024 Lung Cancer Screening due on 01/20/2025 Serum Creatinine due on 07/15/2025 Annual PCP Team Chronic Disease Visit due on 08/19/2025 Diabetes Screening due on 07/15/2027 Lipid Screening due on 02/21/2028 RSV Vaccine(1 - 1-dose 75+ series) due on 2029 Bone Density Screening Completed Influenza Vaccine Completed Hepatitis C Screening Completed Pneumococcal Vaccine: 65+ Completed DTaP,Tdap,Td Vaccine Discontinued Shingrix Vaccine Discontinued ASSESSMENT/PLAN: 1. Essential hypertension - ICD9: 401.9, ICD10: I10 - Uncontrolled - Increase losartan - Recommend home blood pressure monitoring, to bring results to next visit - Encouraged sodium restriction, DASH or Mediterranean diet - Recommend regular aerobic exercise - Discussed need for and benefit of weight loss. BMI 30.15 kg/(m^2) - Follow up in 6 months for hypertension visit - LOSARTAN 50 MG TABLET Jeanette Berrios APRN.RADIATION ENGINEER Prescription instructions reviewed with patient as applicable. Patient advised if symptoms do not improve or if symptoms worsen sooner, to contact their primary care physician. Potential red flag symptoms discussed with the patient. Reviewed appropriate action plan to take if red flag symptoms occur. Patient agreeable to treatment plan. Medical Decision Making: Problems: Moderate: 1+ chronic illnesses with change Risk: Moderate: Drug management and Moderate risk from testing/treatment Medical Decision Making Level: 4 - Moderate documented in this encounterMer[facility]12-[facility]24 NoteHNO ID: [id number] Author: JEANETTE BERRIOS APRN.RADIATION ENGINEER Service: ? Author Type: Nurse Practitioner Type: Progress Notes Filed: 08/19/2024 12:04 Note Text: 08/19/2024 Patient presents with: BP Check SUBJECTIVE: This is a 68 year old that is here today for Above Complaints. BP elevated at last office appointment. No medication changes made at that time. Not checking BP at home. Denies visual changes, headaches, dizziness, lightheadedness, slurred speech, facial drooping, extremity numbness, tingling or weakness PAST MEDICAL HISTORY Diagnosis Date Anxiety with depression Chronic back pain Chronic kidney disease (CKD), stage III (moderate) (HCC) Colon polyp tubular adenoma [address] 07/16 to 08/17 DDD (degenerative disc disease), lumbar seeing Dr. Johnson Dysphagia Dr. Stiles Ectopic 1991 GERD (gastroesophageal reflux disease) History of prediabetes Hyperlipidemia Hypertension Hypothyroidism Obesity (BMI 30.0-34.9) Other pulmonary embolism without acute cor pulmonale (HCC) Pneumonia due to [facility] virus Requiring intubation ALLERGIES Meagan Inhibitors, Codeine, Remeron [Mirtazapine], Vnuliga-Nkr-Uhl Reductase Inhibitors, Michie, and Zetia [Ezetimibe] MEDICATIONS Current Outpatient Medications Medication Sig fluticasone (FLONASE) 50 mcg/actuation nasal spray Use 2 Sprays in each nostril once daily. Rinse mouth after use. levothyroxine (SYNTHROID) 25 mcg tablet Take 1 tablet by mouth once daily. potassium chloride (K-TAB) 10 mEq tablet Take two tablets daily losartan (COZAAR) 25 mg tablet Take 1 tablet by mouth once daily. NEXLETOL 180 mg tablet once daily. (Patient not taking: Reported on 01/08/2024) calcium carbonate (CALCIUM 500 ORAL) Take 1,000 mg by mouth once daily. HYDROcodone-acetaminophen (NORCO) 5-325 mg per tablet Take 1 tablet by mouth every 8 hours as needed for pain. mv,jaci,iron,mn/folic acid/chol (JLZU-JHFO-GIAZU, PABA, ORAL) Take 1 tablet by mouth once daily. (Patient not taking: Reported on 08/22/2022) Minoxidil 2 % external solution Apply 1 mL to affected area twice daily. albuterol (PROVENTIL) 2.5 mg /3 mL (0.083 %) nebulizer solution Use 3 mL via nebulizer every 4 hours as needed for Wheezing/Shortness of Breath. Use over 5-15minutes. Omeprazole 40 mg capsule Take 1 capsule by mouth twice daily. gabapentin (NEURONTIN) 400 mg capsule Take 400 mg by mouth two times a day. No current facility-administered medications for this visit. Medications and allergies reviewed by this provider. SOCIAL HISTORY Social History Tobacco Use Smoking status: Former Current packs/day: 0.00 Average packs/day: 1 pack/day for 49.0 years (49.0 ttl pk-yrs) Types: Cigarettes Start date: 08/14/1967 Quit date: 08/14/2016 Years since quittin.0 Smokeless tobacco: Never Substance Use Topics Alcohol use: No Drug use: No REVIEW OF SYSTEMS All other reviewed and negative other than HPI. OBJECTIVE: BP 162/84 Pulse (!) 58 Resp 18 Wt 77.2 kg (170 lb 3.1 oz) SpO2 98% BMI 30.15 kg/m? . Vital signs reviewed by this provider. APPEARANCE Well appearing, alert, in no acute distress, well-hydrated, well nourished. Mammogram Screening due on 07/16/2020 Colorectal Cancer Screening due on 03/28/2023 Advance Directive Discussion Never done Covid-19 Vaccine() due on 05/18/2024 BP Controlled (<130/80) due on 06/22/2024 Lung Cancer Screening due on 01/20/2025 Serum Creatinine due on 07/15/2025 Annual PCP Team Chronic Disease Visit due on 08/19/2025 Diabetes Screening due on 07/15/2027 Lipid Screening due on 02/21/2028 RSV Vaccine(1 - 1-dose 75+ series) due on 2029 Bone Density Screening Completed Influenza Vaccine Completed Hepatitis C Screening Completed Pneumococcal Vaccine: 65+ Completed DTaP,Tdap,Td Vaccine Discontinued Shingrix Vaccine Discontinued ASSESSMENT/PLAN: 1. Essential hypertension - ICD9: 401.9, ICD10: I10 - Uncontrolled - Increase losartan - Recommend home blood pressure monitoring, to bring results to next visit - Encouraged sodium restriction, DASH or Mediterranean diet - Recommend regular aerobic exercise - Discussed need for and benefit of weight loss. BMI 30.15 kg/(m2) - Follow up in 6 months for hypertension visit - LOSARTAN 50 MG TABLET Jeanette Berrios APRN.RADIATION ENGINEER Prescription instructions reviewed with patient as applicable. Patient advised if symptoms do not improve or if symptoms worsen sooner, to contact their primary care physician. Potential red flag symptoms discussed with the patient. Reviewed appropriate action plan to take if red flag symptoms occur. Patient agreeable to treatment plan. Medical Decision Making: Problems: Moderate: 1+ chronic illnesses with change Risk: Moderate: Drug management and Moderate risk from testing/treatment Medical Decision Making [facility]: [facility] NoteHNO ID: [id number] Author: JEANETTE BERRIOS APRN.RADIATION ENGINEER Service: ? Author Type: Nurse Practitioner Type: Progress Notes Filed: 07/15/2024 10:23 Note Text: 07/15/2024 Patient presents with: F/U 6 months SUBJECTIVE: This is a 68 year old that is here today for Above Complaints. Since last office visit has been in good health without ER visits or hospitalizations. HTN: Patient is compliant with meds Yes Monitors bp at home: No. Denies side effects: Yes. Chest pain: No. Dyspnea: No. Edema: No. Palpitations: No. Syncope: No. Headache: No. Dizziness: No. ASTHMA/Pulmonary HTN:/ARMANDO: Follows with Dr. Gonsalves, bag repairer. Last visit in May. CPAP settings decreased and is to follow-up in 3 months. HYPOTHYROIDISM: taking synthroid as prescribed without side effects. PREDIABETES: tries to eat lower carbohydrate diet and stay active. Denies visual changes, polyuria or polydipsia. Reports did just get back from cruise and ate a lot of ice cream cones. CKD: eats low salt diet and avoids NSAID products Follows with [facility] with last appointment on 12/10/2023. Restarted Bempedoic Acid a few weeks ago. Next follow-up in November. PAST MEDICAL HISTORY Diagnosis Date Anxiety with depression Chronic back pain Chronic kidney disease (CKD), stage III (moderate) (HCC) Colon polyp tubular adenoma [address] 07/16 to 08/17 DDD (degenerative disc disease), lumbar seeing Dr. Johnson Dysphagia Dr. Stiles Ectopic 1991 GERD (gastroesophageal reflux disease) History of prediabetes Hyperlipidemia Hypertension Hypothyroidism Obesity (BMI 30.0-34.9) Other pulmonary embolism without acute cor pulmonale (HCC) Pneumonia due to COVID-19 virus Requiring intubation ALLERGIES Meagan Inhibitors, Codeine, Remeron [Mirtazapine], Xcyimnb-Vic-Zbe Reductase Inhibitors, Michie, and Zetia [Ezetimibe] MEDICATIONS Current Outpatient Medications Medication Sig levothyroxine (SYNTHROID) 25 mcg tablet Take 1 tablet by mouth once daily. potassium chloride (K-TAB) 10 mEq tablet Take two tablets daily losartan (COZAAR) 25 mg tablet Take 1 tablet by mouth once daily. fluticasone (FLONASE) 50 mcg/actuation nasal spray Use 2 Sprays in each nostril once daily. Rinse mouth after use. NEXLETOL 180 mg tablet once daily. (Patient not taking: Reported on 01/08/2024) calcium carbonate (CALCIUM 500 ORAL) Take 1,000 mg by mouth once daily. HYDROcodone-acetaminophen (NORCO) 5-325 mg per tablet Take 1 tablet by mouth every 8 hours as needed for pain. mv,jaci,iron,mn/folic acid/chol (DNTZ-WOLY-SUHNI, PABA, ORAL) Take 1 tablet by mouth once daily. (Patient not taking: Reported on 08/22/2022) Minoxidil 2 % external solution Apply 1 mL to affected area twice daily. albuterol (PROVENTIL) 2.5 mg /3 mL (0.083 %) nebulizer solution Use 3 mL via nebulizer every 4 hours as needed for Wheezing/Shortness of Breath. Use over 5-15minutes. Omeprazole 40 mg capsule Take 1 capsule by mouth twice daily. gabapentin (NEURONTIN) 400 mg capsule Take 400 mg by mouth two times a day. No current facility-administered medications for this visit. Medications and allergies reviewed by this provider. SOCIAL HISTORY Social History Tobacco Use Smoking status: Former Current packs/day: 0.00 Average packs/day: 1 pack/day for 49.0 years (49.0 ttl pk-yrs) Types: Cigarettes Start date: 08/14/1967 Quit date: 08/14/2016 Years since quittin.9 Smokeless tobacco: Never Substance Use Topics Alcohol use: No Drug use: No REVIEW OF SYSTEMS All other reviewed and negative other than HPI. OBJECTIVE: BP 142/80 Pulse (!) 56 Resp 18 Wt 79.4 kg (175 lb 0.7 oz) SpO2 97% BMI 31.01 kg/m? . Vital signs reviewed by this provider. APPEARANCE Well appearing, alert, in no acute distress, well-hydrated, well nourished. EYES conjunctiva and sclera normal. EARS External ears normal, canals clear NECK Supple, no adenopathy; thyroid symmetric, normal size, no bruits HEART RRR with normal S1 and S2, no murmurs, no gallops, no JVD appreciated LUNG clear to auscultation. No wheezes, rhonchi or rales EXTREMITIES Extremities normal, No deformities, No skin discoloration, and No edema SKIN Skin color, texture, turgor normal, no suspicious rashes or lesions to exposed skin Latest Ref Rng 01/18/2024 WBC 3.70 - 11.00 k/uL 4.22 RBC 3.90 - 5.20 m/uL 4.81 Hemoglobin 11.5 - 15.5 g/dL 13.8 Hematocrit 36.0 - 46.0 % 41.8 MCV 80.0 - 100.0 fL 86.9 MCH 26.0 - 34.0 pg 28.7 MCHC 30.5 - 36.0 g/dL 33.0 RDW-CV 11.5 - 15.0 % 13.0 Platelet Count 150 - 400 k/uL 332 MPV 9.0 - 12.7 fL 10.7 Neut% % 49.8 Abs Neut (ANC) 1.45 - 7.50 k/uL 2.10 Lymph% % 32.2 Abs Lymph 1.00 - 4.00 k/uL 1.36 Roosevelt% % 13.7 Abs Roosevelt <0.87 k/uL 0.58 Eosin% % 2.4 Abs Eosin <0.46 k/uL 0.10 Baso% % 1.4 Abs Baso <0.11 k/uL 0.06 Immature Gran % % 0.5 IMMATURE GRANS (ABS) <0.10 k/uL <0.03 NRBC /100 WBC 0 (more content not included)...[facility] History of Present illness Narrative* Jeanette Berrios APRN.RADIATION ENGINEER - 07/15/2024 8:56 AM EDT 07/15/2024 Patient presents with: F/U 6 months SUBJECTIVE: This is a 68 year old that is here today for Above Complaints. Since last office visit has been in good health without ER visits or hospitalizations. HTN: Patient is compliant with meds Yes Monitors bp at home: No. Denies side effects: Yes. Chest pain: No. Dyspnea: No. Edema: No. Palpitations: No. Syncope: No. Headache: No. Dizziness: No. ASTHMA/Pulmonary HTN:/ARMANDO: Follows with Dr. Gonsalves, bag repairer. Last visit in May. CPAP settings decreased and is to follow-up in 3 months. HYPOTHYROIDISM: taking synthroid as prescribed without side effects. PREDIABETES: tries to eat lower carbohydrate diet and stay active. Denies visual changes, polyuria or polydipsia. Reports did just get back from cruise and ate a lot of ice cream cones. CKD: eats low salt diet and avoids NSAID products Follows with [facility] with last appointment on 12/10/2023. Restarted Bempedoic Acid a few weeks ago. Next follow-up in November. PAST MEDICAL HISTORY Diagnosis Date Anxiety with depression Chronic back pain Chronic kidney disease (CKD), stage III (moderate) (HCC) Colon polyp tubular adenoma [address] 07/16 to 08/17 DDD (degenerative disc disease), lumbar seeing Dr. Johnson Dysphagia Dr. Stiles Ectopic 1991 GERD (gastroesophageal reflux disease) History of prediabetes Hyperlipidemia Hypertension Hypothyroidism Obesity (BMI 30.0-34.9) Other pulmonary embolism without acute cor pulmonale (HCC) Pneumonia due to [place]- virus Requiring intubation ALLERGIES Meagan Inhibitors, Codeine, Remeron [Mirtazapine], Zrqgqnl-Zvj-Wep Reductase Inhibitors, Michie, and Zetia [Ezetimibe] MEDICATIONS Current Outpatient Medications Medication Sig levothyroxine (SYNTHROID) 25 mcg tablet Take 1 tablet by mouth once daily. potassium chloride (K-TAB) 10 mEq tablet Take two tablets daily losartan (COZAAR) 25 mg tablet Take 1 tablet by mouth once daily. fluticasone (FLONASE) 50 mcg/actuation nasal spray Use 2 Sprays in each nostril once daily. Rinse mouth after use. NEXLETOL 180 mg tablet once daily. (Patient not taking: Reported on 01/08/2024) calcium carbonate (CALCIUM 500 ORAL) Take 1,000 mg by mouth once daily. HYDROcodone-acetaminophen (NORCO) 5-325 mg per tablet Take 1 tablet by mouth every 8 hours as needed for pain. mv,jaci,iron,mn/folic acid/chol (DTIN-AGNK-VBHCT, PABA, ORAL) Take 1 tablet by mouth once daily. (Patient not taking: Reported on 08/22/2022) Minoxidil 2 % external solution Apply 1 mL to affected area twice daily. albuterol (PROVENTIL) 2.5 mg /3 mL (0.083 %) nebulizer solution Use 3 mL via nebulizer every 4 hours as needed for Wheezing/Shortness of Breath. Use over 5-15minutes. Omeprazole 40 mg capsule Take 1 capsule by mouth twice daily. gabapentin (NEURONTIN) 400 mg capsule Take 400 mg by mouth two times a day. No current facility-administered medications for this visit. Medications and allergies reviewed by this provider. SOCIAL HISTORY Social History Tobacco Use Smoking status: Former Current packs/day: 0.00 Average packs/day: 1 pack/day for 49.0 years (49.0 ttl pk-yrs) Types: Cigarettes Start date: 08/14/1967 Quit date: 08/14/2016 Years since quittin.9 Smokeless tobacco: Never Substance Use Topics Alcohol use: No Drug use: No REVIEW OF SYSTEMS All other reviewed and negative other than HPI. OBJECTIVE: BP 142/80 Pulse (!) 56 Resp 18 Wt 79.4 kg (175 lb 0.7 oz) SpO2 97% BMI 31.01 kg/m . Vitalsigns reviewed by this provider. APPEARANCE Well appearing, alert, in no acute distress, well-hydrated, well nourished. EYES conjunctiva and sclera normal. EARS External ears normal, canals clear NECK Supple, no adenopathy; thyroid symmetric, normal size, no bruits HEART RRR with normal S1 and S2, no murmurs, no gallops, no JVD appreciated LUNG clear to auscultation. No wheezes, rhonchi or rales EXTREMITIES Extremities normal, No deformities, No skin discoloration, and No edema SKIN Skin color, texture, turgor normal, no suspicious rashes or lesions to exposed skin Latest Ref [facility] 01/18/2024 WBC 3.70 - 11.00 k/uL 4.22 RBC 3.90 - 5.20 m/uL 4.81 Hemoglobin 11.5 - 15.5 g/dL 13.8 Hematocrit 36.0 - 46.0 % 41.8 MCV 80.0 - 100.0 fL 86.9 MCH 26.0 - 34.0 pg 28.7 MCHC 30.5 - 36.0 g/dL 33.0 RDW-CV 11.5 - 15.0 % 13.0 Platelet Count 150 - 400 k/uL 332 MPV 9.0 - 12.7 fL 10.7 Neut% % 49.8 Abs Neut (ANC) 1.45 - 7.50 k/uL 2.10 Lymph% % 32.2 Abs Lymph 1.00 - 4.00 k/uL 1.36 Roosevelt% % 13.7 Abs Roosevelt <0.87 k/uL 0.58 Eosin% % 2.4 Abs Eosin <0.46 k/uL 0.10 Baso% % 1.4 Abs Baso <0.11 k/uL 0.06 Immature Gran % % 0.5 IMMATURE GRANS (ABS) <0.10 k/uL <0.03 NRBC /100 WBC 0.0 Absolute nRBC <0.01 k/uL <0.01 DTYPE Auto Protein, Total 6.3 - 8.0 g/dL 6.7 Albumin 3.9 - 4.9 g/dL 4.1 Calcium 8.5 - 10.2 mg/dL 10.0 Bilirubin, Total 0.2 - 1.3 mg/dL 0.3 Alkaline Phosphatase 34 - 123 U/L 86 AST 13 - 35 U/L 21 ALT 7 - 38 U/L 16 Glucose 74 - 99 mg/dL 92 BUN 7 - 21 mg/dL 12 Creatinine 0.58 - 0.96 mg/dL 0.90 Sodium 136 - 144 mmol/L 142 Potassium 3.7 - 5.1 mmol/L 3.9 Chloride 97 - 105 mmol/L 106 (H) CO2 22 - 30 mmol/L 23 Anion Gap 9 - 18 mmol/L 13 eGFR >=60 mL/min/1.73m 69 Vitamin D 25 Hydroxy 31.0 - 80.0 ng/mL 27.9 (L) TSH 0.270 - 4.200 mIU/L 2.110 Legend: (H) High (L) Low Mammogram Screening due on 07/16/2020 Colorectal Cancer Screening due on 03/28/2023 Advance Directive Discussion Never done Influenza Vaccine(1) due on 05/18/2024 Covid-19 Vaccine(2023- season) due on 05/18/2024 BP Controlled (<130/80) due on 06/22/2024 Annual PCP Team Chronic Disease Visit due on 01/07/2025 Serum Creatinine due on 01/17/2025 Lung Cancer Screening due on 01/20/2025 Diabetes Screening due on 01/17/2027 Lipid Screening due on 02/21/2028 RSV Vaccine(1 - 1-dose 75+ series) due on 2029 Bone Density Screening Completed Hepatitis C Screening Completed Pneumococcal Vaccine: 65+ Completed DTaP,Tdap,Td Vaccine Discontinued Shingrix Vaccine Discontinued ASSESSMENT/PLAN: 1. Essential hypertension - ICD9: 401.9, ICD10: I10 (primary diagnosis) - Uncontrolled - Continue current medications - Recommend home blood pressure monitoring, to bring results to next visit - Encouraged sodium restriction, DASH or Mediterranean diet - Recommend regular aerobic exercise - Discussed need for and benefit of weight loss. BMI 31.01 kg/(m^2) - Follow up in 4 weeks for hypertension visit - COMPREHENSIVE METABOLIC PANEL 2. Non-seasonal allergic rhinitis, unspecified trigger - ICD9: 477.8, ICD10: J30.89 - FLUTICASONE PROPIONATE 50 MCG/ACTUATION NASAL SPRAY,SUSPENSION 3. Encounter for immunization - ICD9: V03.89, ICD10: Z23 - INFLUENZA VACCINE, PRSV FREE, AGE 65+ YR, HIGH DOSE, TRIVALENT (FLUZONE HIGH-DOSE) 4. Hyperlipidemia, unspecified hyperlipidemia type - ICD9: 272.4, ICD10: E78.5 - continue current medication - Counseled on healthy diet and regular exercise - Discussed need for and benefit of weight loss. BMI 31.01 kg/(m^2) - Follow up in 6 months, sooner should any other issues arise. 5. Prediabetes - ICD9: 790.29, ICD10: R73.03 - HEMOGLOBIN A1C 6. Stage 3 chronic kidney disease, unspecified whether stage 3a or 3b CKD (HCC) - ICD9: 585.3, ICD10: N18.30 - eGFR: 69 Due for labs - Counseled on avoiding NSAIDs, adequate hydration - Counseled on low sodium diet - ACEi/ARB prescribed: Yes - follow-up in 6 months sooner if needed 7. Pulmonary hypertension (HCC) - ICD9: 416.8, ICD10: I27.20 - follow-up with palynology as scheduled 8. First degree AV block - ICD9: 426.11, ICD10: I44.0 - follow-up with cardiology as scheduled 9. Acquired hypothyroidism - ICD9: 244.9, ICD10: E03.9 - Instructed patient on importance of taking on an empty stomach either first thing in the morning or at bedtime. - continue current dose of Synthroid 0.025 mg - Follow up in 6 months Jeanette Berrios, 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 Prescription instructions reviewed with patient as applicable. Patient advised if symptoms do not improve or if symptoms worsen sooner, to contact their primary care physician. Potential red flag symptoms discussed with the patient. Reviewed appropriate action plan to take if red flag symptoms occur. Patient agreeable to treatment plan. Medical Decision Making: Problems: Moderate: 2+ stable chronic illnesses Data: Unique test(s) ordered: 2 Risk: Moderate: Moderate risk from testing/treatment and Drug management Medical Decision Making Level: 4 - Moderate documented [facility] Telephone encounter Note * Telephone Encounter - Briseyda Kong - 07/11/2024 8:48 AM EDT Prescription Refill Information The patient has been identified by name and date of : Yes Caregiver verified no other encounters exist for this prescription request: Yes Caregiver confirmed with patient/requestor that no other refills are due, in the near future, with this provider at this time: Yes The last office visit in the department: 01/08/24 Does the patient have a future office visit with this provider/department: Yes Requested Prescriptions Pending Prescriptions Disp Refills levothyroxine (SYNTHROID) 25 mcg tablet 90 tablet 1 Sig: Take 1 tablet by mouth once daily. Briseyda Kong July 11, 2024 8:[address] [facility]10-25-2024 Miscellaneous Notes* Telephone Encounter - Briseyda Kong - 07/11/2024 8:48 AM EDT Prescription Refill Information The patient has been identified by name and date of : Yes Caregiver verified no other encounters exist for this prescription request: Yes Caregiver confirmed with patient/requestor that no other refills are due, in the near future, with this provider at this time: Yes The last office visit in the department: 01/08/24 Does the patient have a future office visit with this provider/department: Yes Requested Prescriptions Pending Prescriptions Disp Refills levothyroxine (SYNTHROID) 25 mcg tablet 90 tablet 1 Sig: Take 1 tablet by mouth once daily. Briseyda Kong July 11, 2024 8:49 AM documented in this encounterMer[facility] NotePatient Outreach (INTMMN) BETSY RODRIGEZ ([id number]) 1955 F Date Time Provider Department 06/25/24 GIRISH LEMOS During your visit today, we recorded the following information about you: Allergies As of Date: 06/25/2024 Noted Allergy Reaction MEAGAN INHIBITORS 10/06/2017 2 - Rash CODEINE 10/06/2017 11 - Vomiting 14 - Other: See Comments Comments: Headache REMERON (MIRTAZAPINE) 01/17/2021 14 - Other: See Comments Comments: Fatigue NKIVUMJ-PHB-SMJ REDUCTASE INHIBIT*11/14/2017 17 - Myalgia WALNUT 10/06/2017 16 - Unknown ZETIA (EZETIMIBE) 01/17/2021 17 - Myalgia Date Reviewed: 01/08/2024 Reviewed by: Krystin Zimmerman LPN - Fully Assessed Visit Diagnosis:Encounter for screening mammogram for breast cancer [Z12.31] Order(s):[facility] SCREENING W ANT [[id number]] Order #: [id number] FUTURE Prescriptions as of 06/30/2024 - potassium chloride (K-TAB) 10 mEq tablet Take two tablets daily - losartan (COZAAR) 25 mg tablet Take 1 tablet by mouth once daily. - fluticasone (FLONASE) 50 mcg/actuation nasal spray Use 2 Sprays in each nostril once daily. Rinse mouth after use. - levothyroxine (SYNTHROID) 25 mcg tablet Take 1 tablet by mouth once daily. - NEXLETOL 180 mg tablet once daily. - calcium carbonate (CALCIUM 500 ORAL) Take 1,000 mg by mouth once daily. - HYDROcodone-acetaminophen (NORCO) 5-325 mg per tablet Take 1 tablet by mouth every 8 hours as needed for pain. - mv,jaci,iron,mn/folic acid/chol (HBAP-PRPR-OPGMV, PABA, ORAL) Take 1 tablet by mouth once daily. - Minoxidil 2 % external solution Apply 1 mL to affected area twice daily. - albuterol (PROVENTIL) 2.5 mg /3 mL (0.083 %) nebulizer solution Use 3 mL via nebulizer every 4 hours as needed for Wheezing/Shortness of Breath. Use over 5-15minutes. - Omeprazole 40 mg capsule Take 1 capsule by mouth twice daily. - gabapentin (NEURONTIN) 400 mg capsule Take 400 mg by mouth two times a day. Problem List As Of Date 06/25/2024 Noted Resolved Hypertension [I10] Hypothyroidism [E03.9] GERD (gastroesophageal reflux disease) [K21.9] Hyperlipidemia [E78.5] DDD (degenerative disc disease), lumbar [M51.36* Chronic back pain [M54.9, G89.29] Obesity (BMI 30.0-34.9) [E66.811] Anxiety with depression [F41.8] Other acute pulmonary embolism, unspecified whe*01/24/2023 Stage 3 chronic kidney disease (HCC) [N18.30] 02/20/2023 Pulmonary hypertension (HCC) [I27.20] 06/22/2023 Encounter Status:Closed by Bharat MatrimonyELLIOTT on 06/30/24[facility] 04-28-[facility] Telephone encounter Note* Telephone Encounter - [place] Beverley Royal - 04/28/2024 2:01 PM EDT Prescription Refill Information The patient has been identified by name and date of : Yes Caregiver verified no other encounters exist for this prescription request: Yes Caregiver confirmed with patient/requestor that no other refills are due, in the near future, with this provider at this time: Yes The last office visit in the department: 01/08/24 Does the patient have a future office visit with this provider/department: Yes 07/09/24 Requested Prescriptions Pending Prescriptions Disp Refills potassium chloride (K-TAB) 10 mEq tablet 180 tablet 3 Sig: Take two tablets daily losartan (COZAAR) 25 mg tablet 90 tablet 3 Sig: Take 1 tablet by mouth once daily. Please send to [facility] today if possible. Beverley Royal April 28, 2024 2:[address] [facility]08-12-2024 Miscellaneous Notes* Telephone Encounter - [place] Beverley Royal - 04/28/2024 2:01 PM EDT Prescription Refill Information The patient has been identified by name and date of : Yes Caregiver verified no other encounters exist for this prescription request: Yes Caregiver confirmed with patient/requestor that no other refills are due, in the near future, with this provider at this time: Yes The last office visit in the department: 01/08/24 Does the patient have a future office visit with this provider/department: Yes 07/09/24 Requested Prescriptions Pending Prescriptions Disp Refills potassium chloride (K-TAB) 10 mEq tablet 180 tablet 3 Sig: Take two tablets daily losartan (COZAAR) 25 mg tablet 90 tablet 3 Sig: Take 1 tablet by mouth once daily. Please send to [facility] today if possible. Beverley Royal April 28, 2024 2:02 PM documented in this encounterMer[facility]05-[facility] Telephone encounter Note * Telephone Encounter - Mae Wong MA - 01/21/2024 10:45 AM EDT Pt notified and voiced understanding. Mae Wong MA [facility]05-06-2024 Miscellaneous Notes* Telephone Encounter - Mae Wong MA - 01/21/2024 10:45 AM EDT Pt notified and voiced understanding. Mae Wong MA * Telephone Encounter - Mae Wong MA - 01/21/2024 10:44 AM EDT ----- Message from Jeanette Berrios APRN.RADIATION ENGINEER sent at 01/21/2024 6:40 AM EDT ----- Vitamin D mildly low- if not already should take 2000 units daily- may get this over the counter. The rest of her blood work is normal. Jeanette Berrios APRN.CNP documented in this encounterMer[facility]05-06-2024 Telephone encounter Note * Telephone Encounter - Mae Wong MA - 01/21/2024 10:44 AM EDT ----- Message from Jeanette Berrios APRN.CNP sent at 01/21/2024 6:40 AM EDT ----- Vitamin D mildly low- if not already should take 2000 units daily- may get this over the counter. The rest of her blood work is normal. Jeanette Berrios APRN.CNP [facility]04-23-2024 History of Present illness Narrative* Jeanette Berrios APRN.CNP - 01/08/2024 9:20 AM EDT 01/07/2024 Patient presents with: F/U 6 months: Increase in muscle cramps SUBJECTIVE: This is a 68 year old that is here today for Above Complaints. Since last office visit has been in good health without ER visits or hospitalizations. HTN: Patient is compliant with meds Yes Monitors bp at home: No. Denies side effects: No. Chest pain: No. Dyspnea: No. Edema: No. Palpitations: No. Syncope: No. Headache: at times. Dizziness: No. ASTHMA/Pulmonary HTN: Follows with Dr. Gonsalves, bag repairer. Has follow-up with pulmonology next week. HYPOTHYROIDISM: taking synthroid as prescribed without side effects. PREDIABETES: tries to eat lower carbohydrate diet and stay active. Denies visual changes, polyuria or polydipsia CKD: eats low salt diet and avoids NSAID products Follows with [facility] or SOB and chest pain with last appointment on 12/10/2023. No medication changes at that time. Negative Stress test in February,. ECHO showed EF of 55-60%. Stopped Bempedoic acid injection due to cost. Unable to tolerate statins. Muscle cramps for the last couple of months. Cramping in calves at night. Has to get up and move around. Not so much during the days PAST MEDICAL HISTORY Diagnosis Date Anxiety with depression Chronic back pain Chronic kidney disease (CKD), stage III (moderate) (HCC) Colon polyp tubular adenoma [address] 07/16 to 08/17 DDD (degenerative disc disease), lumbar seeing Dr. Johnson Dysphagia Dr. Stiles Ectopic 1991 GERD (gastroesophageal reflux disease) History of prediabetes Hyperlipidemia Hypertension Hypothyroidism Obesity (BMI 30.0-34.9) Other pulmonary embolism without acute cor pulmonale (HCC) Pneumonia due to [place] [id number] virus Requiring intubation ALLERGIES Maegan Inhibitors, Codeine, Remeron [Mirtazapine], Paeldrm-Flk-Uqf Reductase Inhibitors, Michie, and Zetia [Ezetimibe] MEDICATIONS Current Outpatient Medications Medication Sig levothyroxine (SYNTHROID) 25 mcg tablet Take 1 tablet by mouth once daily. losartan (COZAAR) 25 mg tablet Take 1 tablet by mouth once daily. potassium chloride (K-TAB) 10 mEq tablet Take two tablets daily NEXLETOL 180 mg tablet once daily. calcium carbonate (CALCIUM 500 ORAL) Take 1,000 mg by mouth once daily. HYDROcodone-acetaminophen (NORCO) 5-325 mg per tablet Take 1 tablet by mouth every 8 hours as needed for pain. fluticasone (FLONASE) 50 mcg/actuation nasal spray Use 2 Sprays in each nostril once daily. Rinse mouth after use. INV VITAMIN D3 5000 UNITS CAPSULE (IRB 19-1548) Take 1 capsule by mouth once daily. For Investigational Drug Use Only. PI: Krystin Rodrigues, PhD. Take one capsule by mouth daily for 3 months prior to surgery and 3 months after surgery. red yeast rice 600 mg tab Take 2 tablets by mouth once daily. (Patient not taking: Reported on 06/22/2023) mv,jaci,iron,mn/folic acid/chol (PFBC-PAOR-NJHYS, PABA, ORAL) Take 1 tablet by mouth once daily. (Patient not taking: Reported on 08/22/2022) Minoxidil 2 % external solution Apply 1 mL to affected area twice daily. albuterol (PROVENTIL) 2.5 mg /3 mL (0.083 %) nebulizer solution Use 3 mL via nebulizer every 4 hours as needed for Wheezing/Shortness of Breath. Use over 5-15minutes. Omeprazole 40 mg capsule Take 1 capsule by mouth twice daily. gabapentin (NEURONTIN) 400 mg capsule Take 400 mg by mouth two times a day. No current facility-administered medications for this visit. Medications and allergies reviewed by this provider. SOCIAL HISTORY Social History Tobacco Use Smoking status: Former Packs/day: 1.00 Years: 49.00 Additional pack years: 0.00 Total pack years: 49.00 Types: Cigarettes Quit date: 08/14/2016 Years since quittin.4 Smokeless tobacco: Never Substance Use Topics Alcohol use: No Drug use: No REVIEW OF SYSTEMS All other reviewed and negative other than HPI. OBJECTIVE: BP 136/84 Pulse (!) 55 Resp 18 Wt 81.3 kg (179 lb 3.2 oz) SpO2 96% BMI 31.74 kg/m . Vitalsigns reviewed by this provider. APPEARANCE Well appearing, alert, in no acute distress, well-hydrated, well nourished. EYES conjunctiva and sclera normal. EARS External ears normal, canals clear HEART RRR with normal S1 and S2, no murmurs, no gallops, no JVD appreciated LUNG clear to auscultation. No wheezes, rhonchi or rales EXTREMITIES Extremities normal, No deformities, No skin discoloration, and No edema SKIN Skin color, texture, turgor normal, no suspicious rashes or lesions to exposed skin RSV Vaccine(1 - 1-dose 60+ series) Never done Mammogram Screening due on 07/16/2020 Colorectal Cancer Screening due on 03/28/2023 Covid-19 Vaccine( season) due on 05/18/2023 Advance Directive Discussion Never done Lung Cancer Screening due on 01/19/2024 Serum Creatinine due on 02/21/2024 BP Controlled (<130/80) due on 06/22/2024 Annual PCP Team Chronic Disease Visit due on 01/07/2025 Diabetes Screening due on 02/20/2026 Lipid Screening due on 02/21/2028 Bone Density Screening Completed Influenza Vaccine Completed Hepatitis C Screening Completed Pneumococcal Vaccine: 65+ Completed DTaP,Tdap,Td Vaccine Discontinued Shingrix Vaccine Discontinued ASSESSMENT/PLAN: 1. Essential hypertension - ICD9: 401.9, ICD10: I10 (primary diagnosis) - Controlled - Continue current medications - Recommend home blood pressure monitoring, to bring results to next visit - Encouraged sodium restriction, DASH or Mediterranean diet - Recommend regular aerobic exercise - Discussed need for and benefit of weight loss. BMI 31.74 kg/(m^2) - Follow up in 6 months for hypertension visit - COMPREHENSIVE METABOLIC PANEL 2. Non-seasonal allergic rhinitis, unspecified trigger - ICD9: 477.8, ICD10: J30.89 - FLUTICASONE PROPIONATE 50 MCG/ACTUATION NASAL SPRAY,SUSPENSION 3. Acquired hypothyroidism - ICD9: 244.9, ICD10: E03.9 - Instructed patient on importance of taking on an empty stomach either first thing in the morning or at bedtime. - continue current dose of Synthroid 0.025 mg - Follow up in 6 months 4. Hyperlipidemia, unspecified hyperlipidemia type - ICD9: 272.4, ICD10: E78.5 - Control undetermined, due for labs - Counseled on healthy diet and regular exercise - Discussed need for and benefit of weight loss. BMI 31.74 kg/(m^2) - Follow up in 6 months, sooner should any other issues arise. - COMPREHENSIVE METABOLIC PANEL 5. Stage 3 chronic kidney disease, unspecified whether stage 3a or 3b CKD (HCC) - ICD9: 585.3, ICD10: N18.30 - eGFR: 61 Stable - Counseled on avoiding NSAIDs, adequate hydration - Counseled on low sodium diet - ACEi/ARB prescribed: Yes 6. Pulmonary hypertension (HCC) - ICD9: 416.8, ICD10: I27.20 - follow-up with pulmonology as scheduled 9. Muscle cramps - ICD9: 729.82, ICD10: R25.2 - discussed leg stretches prior to bed - VITAMIN D 25 HYDROXY - THYROID STIMULATING HORMONE - COMPLETE BLOOD COUNT AND DIFFERENTIAL Jeanette Berrios APRN.CNP Prescription instructions reviewed with patient as applicable. Patient advised if symptoms do not improve or if symptoms worsen sooner, to contact their primary care physician. Potential red flag symptoms discussed with the patient. Reviewed appropriate action plan to take if red flag symptoms occur. Patient agreeable to treatment plan. Medical Decision Making: Problems: Moderate: 2+ stable chronic illnesses and New problem with uncertain prognosis Data: Unique test(s) ordered: 3+ Risk: Moderate: Drug management Medical Decision Making Level: 4 - Moderate documented in [facility]24 Miscellaneous Notes* Telephone Encounter - Adriana Landry LPN - 10/23/2023 10:46 AM EST Patient has been identified by name and date of : Pharmacy phones for refill(s): Requested Prescriptions Pending Prescriptions Disp Refills levothyroxine (SYNTHROID) 25 mcg tablet 90 tablet 1 Sig: Take 1 tablet by mouth once daily. losartan (COZAAR) 25 mg tablet 90 tablet 1 Sig: Take 1 tablet by mouth once daily. potassium chloride (K-TAB) 10 mEq tablet 180 tablet 1 Sig: Take two tablets daily Date of last office visit in primary care: 06/22/2023 Date of next office visit in primary care: 12/24/2023 Please advise. Thank you. Adriana Landry LPN. documented in this [facility]10-[facility]-2023 Instructions* Patient Instructions* Jeanette Berrios APRN.CNP - 06/22/2023 9:17 AM EDT Check labs in August, follow-up in 6 months for routine visit Use debrox for ear documented in this encounterMer[facility]10-06-2023 History of Present illness Narrative* Jeanette Berrios APRN.CNP - 06/22/2023 8:53 AM EDT 06/22/2023 Patient presents with: F/U 3 Month SUBJECTIVE: This is a 67 year old that is here today for Above Complaints. Since last office visit has been in good health without ER visits or hospitalizations. HTN: Patient is compliant with meds Yes Monitors bp at home: No. Denies side effects: Yes. Chest pain: No. Dyspnea: No. Edema: No. Palpitations: No. Syncope: No. Headache: No. Dizziness: occasionaly when bedning over. ASTHMA: Follows with Dr. James, [facility] bag repairer with last visit on 03/13/2023. Completed PFT and walking test. Patient reports was told looks like she is improving some Patient reports spoke with sleep medicine over at [facility] and was told she has horrible insomnia. Will be following up with sleep medicine. Has CPAP she uses sometimes HYPOTHYROIDISM: taking synthroid as prescribed without side effects PREDIABETES: tries to eat lower carbohydrate diet and stay active. Denies visual changes, polyuria or polydipsia Followed up with manager pet in [place] and she reports she was told she has a hole in heart. Reports was told no need for surgery. Placed on Nexletol for her cholesterol. Completed ECHO and stress test- no results available at this time as she had them completed at outside facility. Denies SOB, dyspnea, chest pain, palpitations or leg edema CKD: eats low salt diet and avoids NSAID products PAST MEDICAL HISTORY Diagnosis Date Anxiety with depression Chronic back pain Chronic kidney disease (CKD), stage III (moderate) (HCC) Colon polyp tubular adenoma [address] 07/16 to 08/17 DDD (degenerative disc disease), lumbar seeing Dr. Johnson Dysphagia Dr. Stiles Ectopic 1991 GERD (gastroesophageal reflux disease) History of prediabetes Hyperlipidemia Hypertension Hypothyroidism Obesity (BMI 30.0-34.9) Other pulmonary embolism without acute cor pulmonale (HCC) Pneumonia due to [place]- virus Requiring intubation ALLERGIES Meagan Inhibitors, Codeine, Remeron [Mirtazapine], Jqpokpw-Gos-Wtl Reductase Inhibitors, Michie, and Zetia [Ezetimibe] MEDICATIONS Current Outpatient Medications Medication Sig levothyroxine (SYNTHROID) 25 mcg tablet Take 1 tablet by mouth once daily. losartan (COZAAR) 25 mg tablet Take 1 tablet by mouth once daily. potassium chloride (K-TAB) 10 mEq tablet Take two tablets daily calcium carbonate (CALCIUM 500 ORAL) Take 1,000 mg by mouth once daily. HYDROcodone-acetaminophen (NORCO) 5-325 mg per tablet Take 1 tablet by mouth every 8 hours as needed for pain. fluticasone (FLONASE) 50 mcg/actuation nasal spray Use 2 Sprays in each nostril once daily. Rinse mouth after use. INV VITAMIN D3 5000 UNITS CAPSULE (IRB 19-1548) Take 1 capsule by mouth once daily. For Investigational Drug Use Only. PI: Krystin Rodrigues, PhD. Take one capsule by mouth daily for 3 months prior to surgery and 3 months after surgery. red yeast rice 600 mg tab Take 2 tablets by mouth once daily. mv,jaci,iron,mn/folic acid/chol (JZQO-ZIIF-EHRRE, PABA, ORAL) Take 1 tablet by mouth once daily. (Patient not taking: Reported on 08/22/2022) Minoxidil 2 % external solution Apply 1 mL to affected area twice daily. albuterol (PROVENTIL) 2.5 mg /3 mL (0.083 %) nebulizer solution Use 3 mL via nebulizer every 4 hours as needed for Wheezing/Shortness of Breath. Use over 5-15minutes. Omeprazole 40 mg capsule Take 1 capsule by mouth twice daily. gabapentin (NEURONTIN) 400 mg capsule Take 400 mg by mouth three times daily. No current facility-administered medications for this visit. Medications and allergies reviewed by this provider. SOCIAL HISTORY Social History Tobacco Use Smoking status: Former Packs/day: 1.00 Years: 49.00 Additional pack years: 0.00 Total pack years: 49.00 Types: Cigarettes Quit date: 08/14/2016 Years since quittin.8 Smokeless tobacco: Never Substance Use Topics Alcohol use: No Drug use: No REVIEW OF SYSTEMS All other reviewed and negative other than HPI. OBJECTIVE: BP 132/80 Pulse 60 Resp 16 Wt 80.5 kg (177 lb 6.4 oz) SpO2 94% BMI 31.42 kg/m . Vital signs reviewed by this provider. APPEARANCE Well appearing, alert, in no acute distress, well-hydrated, well nourished. EYES conjunctiva and sclera normal. HEART RRR with normal S1 and S2, no murmurs, no gallops, no JVD appreciated LUNG clear to auscultation. No wheezes, rhonchi or rales EXTREMITIES Extremities normal, No deformities, No skin discoloration, and No edema SKIN Skin color, texture, turgor normal, no suspicious rashes or lesions to exposed skin Component Latest Ref Rng & Units 02/20/2023 WBC 3.70 - 11.00 k/uL 5.39 RBC 3.90 - 5.20 m/uL 5.18 Hemoglobin 11.5 - 15.5 g/dL 14.9 Hematocrit 36.0 - 46.0 % 46.0 MCV 80.0 - 100.0 fL 88.8 MCH 26.0 - 34.0 pg 28.8 MCHC 30.5 - 36.0 g/dL 32.4 RDW-CV 11.5 - 15.0 % 13.0 Platelet Count 150 - 400 k/uL 308 MPV 9.0 - 12.7 fL 10.9 Neut% % 57.5 Abs Neut (ANC) 1.45 - 7.50 k/uL 3.10 Lymph% % 26.2 Abs Lymph 1.00 - 4.00 k/uL 1.41 Roosevelt% % 12.2 Abs Roosevelt <0.87 k/uL 0.66 Eosin% % 2.8 Abs Eosin <0.46 k/uL 0.15 Baso% % 0.9 Abs Baso <0.11 k/uL 0.05 Immature Gran % % 0.4 IMMATURE GRANS (ABS) <0.10 k/uL <0.03 NRBC /100 WBC 0.0 Absolute nRBC <0.01 k/uL <0.01 DTYPE Auto Protein, Total 6.3 - 8.0 g/dL 7.2 Albumin 3.9 - 4.9 g/dL 4.3 Calcium 8.5 - 10.2 mg/dL 10.4 (H) Bilirubin, Total 0.2 - 1.3 mg/dL 0.3 Alkaline Phosphatase 34 - 123 U/L 99 AST 13 - 35 U/L 20 ALT 7 - 38 U/L 13 Glucose 74 - 99 mg/dL 98 BUN 7 - 21 mg/dL 15 Creatinine 0.58 - 0.96 mg/dL 1.00 (H) Sodium 136 - 144 mmol/L 143 Potassium 3.7 - 5.1 mmol/L 4.7 Chloride 97 - 105 mmol/L 107 (H) CO2 22 - 30 mmol/L 24 Anion Gap 9 - 18 mmol/L 12 eGFR >=60 mL/min/1.73m 61 Cholesterol, Total <200 mg/dL 226 (H) Triglyceride <150 mg/dL 63 HDL Cholesterol >39 mg/dL 63 Non HDL Cholesterol <130 mg/dL 163 (H) Fasting Time hrs 14 VLDL Cholesterol <30 mg/dL 13 TC:HDL Ratio <5.10 3.59 LDL Cholesterol <100 mg/dL 150 (H) LDL:HDL Ratio <2.54 2.38 Hemoglobin A1C 4.3 - 5.6 % 6.0 (H) Estimated Average Glucose mg/dL 126 TSH 0.270 - 4.200 mIU/L 1.800 Magnesium 1.7 - 2.3 mg/dL 2.0 Mammogram Screening due on 07/16/2020 Covid-19 Vaccine(3 - Moderna series) due on 01/19/2021 BP Controlled (<130/80) due on 11/17/2021 Advance Directive Discussion Never done Colorectal Cancer Screening due on 03/28/2023 Influenza Vaccine(1) due on 05/18/2023 Lung Cancer Screening due on 01/19/2024 Serum Creatinine due on 02/21/2024 Annual PCP Team Chronic Disease Visit due on 03/21/2024 Diabetes Screening due on 02/20/2026 Lipid Screening due on 02/21/2028 Bone Density Screening Completed Hepatitis C Screening Completed Pneumococcal Vaccine: 65+ Completed DTaP,Tdap,Td Vaccine Discontinued Shingrix Vaccine Discontinued ASSESSMENT/PLAN: 1. Essential hypertension - ICD9: 401.9, ICD10: I10 (primary diagnosis) - Controlled - Continue current medications - Recommend home blood pressure monitoring, to bring results to next visit - Encouraged sodium restriction, DASH or Mediterranean diet - Recommend regular aerobic exercise - Follow up in 6 months for hypertension visit - COMP METABOLIC PANEL 2. Encounter for immunization - ICD9: V03.89, ICD10: Z23 - INFLUENZA VACCINE, PRSV FREE, AGE 65+ YR, HIGH DOSE, QUADRIVALENT (FLUZONE HIGH-DOSE) 3. Prediabetes - ICD9: 790.29, ICD10: R73.03 - continue low carbohydrate diet and aim for at least 150 minutes per week - HGB A1C 4. Acquired hypothyroidism - ICD9: 244.9, ICD10: E03.9 - Instructed patient on importance of taking on an empty stomach either first thing in the morning or at bedtime. - Increase Synthroid dose to 0.025 mg - Follow up in 6 months 5. Stage 3 chronic kidney disease, unspecified whether stage 3a or 3b CKD (HCC) - ICD9: 585.3, ICD10: N18.30 - eGFR: 61 Stable - Counseled on avoiding NSAIDs, adequate hydration 6. First degree AV block - ICD9: 426.11, ICD10: I44.0 - follow-up wi cardiology as recommended Jeanette Podlogar, 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 Prescription instructions reviewed with patient as applicable. Patient advised if symptoms do not improve or if symptoms worsen sooner, to contact their primary care physician. Potential red flag symptoms discussed with the patient. Reviewed appropriate action plan to take if red flag symptoms occur. Patient agreeable to treatment plan. I spent a total of 25 minutes on the date of the service which included preparing to see the patient, [id number] patient care, completing clinical documentation, obtaining and/or reviewing separately obtained history, performing a medically appropriate examination, counseling and educating the pat ient/family/caregiver, and ordering medications, tests, or procedures. documented in this encounterMer[facility]08-21-2023 Miscellaneous Notes* Telephone Encounter - Rosario Haddad LPN - 05/07/2023 12:37 PM EDT Referral forwarded as requested. * Telephone Encounter - Girish Lemos MD - 05/07/2023 11:58 AM EDT Referral order placed. Please fax to Dr. Stiles's office as requested. * Telephone Encounter - Phylicia Heredia RN - 05/07/2023 11:33 AM EDT Patient calls to request referral be sent to Dr. Stiles's office for colonoscopy. Patient reports Dr. Stiles's office notified her that it was time. Referral is needed by her insurance. Pended. Needs diagnosis. Fax to [phone]. Phylicia Heredia RN documented in this encounterMercy Health St. [facility]08-21-2023 Procedure [facility]07-28-2023 Miscellaneous Notes* Telephone Encounter - Phylicia Heredia RN - 04/13/2023 9:53 AM EDT Patient has been identified by name and date of : Yes, Phylicia Heredia RN Date 04/13/2023 Time 9:54 am Patient phones for refill(s): Requested Prescriptions Pending Prescriptions Disp Refills levothyroxine (SYNTHROID) 25 mcg tablet 90 tablet 1 Sig: Take 1 tablet by mouth once daily. losartan (COZAAR) 25 mg tablet 90 tablet 1 Sig: Take 1 tablet by mouth once daily. potassium chloride (K-TAB) 10 mEq tablet 180 tablet 1 Sig: Take two tablets daily Date of last office visit with pcp:03/21/2023 Future appt: 06/22/2023 Last 2 Encounter Wt Readings: Date: Wt: 03/21/2023 83.6 kg (184 lb 6.4 oz) 02/20/2023 83.6 kg (184 lb 6.4 oz) Previous labs/tests for medication: Thyroid: TSH Date Value 02/20/2023 1.800 mIU/L 04/20/2021 3.310 uU/mL Blood Pressure: BUN (mg/dL) Date Value 02/20/2023 15 04/20/2021 16 Sodium (mmol/L) Date Value 02/20/2023 143 04/20/2021 142 Last 1 Encounter BP Readings: Date: BP: 03/21/2023 140/82 Blood Counts: WBC (k/uL) Date Value 02/20/2023 5.39 04/20/2021 4.59 RBC (m/uL) Date Value 02/20/2023 5.18 04/20/2021 5.09 Hematocrit (%) Date Value 02/20/2023 46.0 04/20/2021 44.4 Hemoglobin (g/dL) Date Value 02/20/2023 14.9 04/20/2021 14.5 Platelet Count (k/uL) Date Value 02/20/2023 308 04/20/2021 277 Potassium: 4.7 on 02.20.2023 Please advise. Thank you. Phylicia Heredia RN documented in this encounterMercy Health St. [facility]07-05-2023 Instructions* Patient Instructions* Jeanette Berrios APRN.CNP - 03/21/2023 9:29 AM EDT Make appointment with Dr. Stiles to discuss colonoscopy documented in this encounterMercy Health St. [facility]07-05-2023 History of Present illness Narrative* Jeanette Berrios APRN.CNP - 03/21/2023 9:11 AM EDT 03/21/2023 Patient presents with: Recheck: Low heart rate SUBJECTIVE: This is a 67 year old that is here today for Above Complaints. BP elevated at last office visit. No medication changes made at that time. Not checking BP at home.Admits to chronic intermittent [place] [facility] Denies visual changes, headaches, slurred speech, facial drooping, extremity numbness, tingling, weakness, presyncope, syncope, worsening SOB from her baseline, dyspnea, wheezing, coughing, orthopnea, chest pain or palpitations. Has appointment with [facility] manager pet in March for her bradycardia Spot to left lower lateral leg treated for ring worm in August. Area had resolved but noticed it returned about 1.5 months ago. Using lotrimin and has noted improvement Due for colonoscopy. Follows with Dr. Horner PAST MEDICAL HISTORY Diagnosis Date Anxiety with depression Chronic back pain Chronic kidney disease (CKD), stage III (moderate) (HCC) Colon polyp tubular adenoma [address] 07/16 to 08/17 DDD (degenerative disc disease), lumbar seeing Dr. Johnson Dysphagia Dr. Stiles Ectopic 1991 GERD (gastroesophageal reflux disease) History of prediabetes Hyperlipidemia Hypertension Hypothyroidism Obesity (BMI 30.0-34.9) Other pulmonary embolism without acute cor pulmonale (HCC) [facility] [place] [facility] Requiring intubation ALLERGIES Meagan Inhibitors, Codeine, Remeron [Mirtazapine], Lemngyh-Kci-Ezt Reductase Inhibitors, Michie, and Zetia [Ezetimibe] MEDICATIONS Current Outpatient Medications Medication Sig calcium carbonate (CALCIUM 500 ORAL) Take 1,000 mg by mouth once daily. HYDROcodone-acetaminophen (NORCO) 5-325 mg per tablet Take 1 tablet by mouth every 8 hours as needed for pain. levothyroxine (SYNTHROID) 25 mcg tablet Take 1 tablet by mouth once daily. losartan (COZAAR) 25 mg tablet Take 1 tablet by mouth once daily. potassium chloride (K-TAB) 10 mEq tablet Take two tablets daily fluticasone (FLONASE) 50 mcg/actuation nasal spray Use 2 Sprays in each nostril once daily. Rinse mouth after use. INV VITAMIN D3 5000 UNITS CAPSULE (IRB 19-1548) Take 1 capsule by mouth once daily. For Investigational Drug Use Only. PI: Krystin Rodrigues, PhD. Take one capsule by mouth daily for 3 months prior to surgery and 3 months after surgery. red yeast rice 600 mg tab Take 2 tablets by mouth once daily. mv,jaci,iron,mn/folic acid/chol (NGOR-UEBR-XUGVD, PABA, ORAL) Take 1 tablet by mouth once daily. (Patient not taking: Reported on 08/22/2022) Minoxidil 2 % external solution Apply 1 mL to affected area twice daily. albuterol (PROVENTIL) 2.5 mg /3 mL (0.083 %) nebulizer solution Use 3 mL via nebulizer every 4 hours as needed for Wheezing/Shortness of Breath. Use over 5-15minutes. Omeprazole 40 mg capsule Take 1 capsule by mouth twice daily. gabapentin (NEURONTIN) 400 mg capsule Take 400 mg by mouth three times daily. No current facility-administered medications for this visit. Medications and allergies reviewed by this provider. SOCIAL HISTORY Social History Tobacco Use Smoking status: Former Packs/day: 1.00 Years: 49.00 Pack years: 49.00 Types: Cigarettes Quit date: 08/14/2016 Years since quittin.6 Smokeless tobacco: Never Substance Use Topics Alcohol use: No Drug use: No REVIEW OF SYSTEMS All other reviewed and negative other than HPI. OBJECTIVE: BP 140/82 Pulse (!) 58 Resp 16 Wt 83.6 kg (184 lb 6.4 oz) SpO2 96% BMI 32.66 kg/m . Vitalsigns reviewed by this provider. APPEARANCE Well appearing, alert, in no acute distress, well-hydrated, well nourished. HEART bradycardic with normal S1 and S2, no murmurs, no gallops, no JVD appreciated LUNG clear to auscultation. No wheezes, rhonchi or rales EXTREMITIES Extremities normal, No deformities, No skin discoloration, and No edema SKIN approximately dime sized light pink in color macule with some dry skin surrounding. No excessive warmth, red streaking or surrounding erythema, otherwise exposed skin WNL MAMMOGRAM due on 07/16/2020 COVID-19 VACCINE(3 - Booster for Moderna series) due on 01/19/2021 BP CONTROLLED (<130/80) due on 11/17/2021 ADVANCE DIRECTIVE DISCUSSION Never done COLORECTAL CANCER SCREENING due on 03/28/2023 INFLUENZA(1) due on 05/18/2023 LUNG CANCER SCREENING due on 01/19/2024 SERUM CREATININE due on 02/21/2024 ANNUAL PCP TEAM CHRONIC DISEASE VISIT due on 03/21/2024 DIABETES SCREEN due on 02/20/2026 LIPID SCREEN due on 02/21/2028 BONE DENSITY Completed HEPATITIS C SCREENING Completed PNEUMOCOCCAL: 65+ Completed DTAP,TDAP,TD Discontinued SHINGRIX VACCINE Discontinued ASSESSMENT/PLAN: 1. Primary hypertension - ICD9: 401.9, ICD10: I10 (primary diagnosis) - Controlled - Continue current medications - Recommend home blood pressure monitoring, to bring results to next visit - Encouraged sodium restriction, DASH or Mediterranean diet - Recommend regular aerobic exercise - Discussed need for and benefit of weight loss. BMI 32.66 kg/(m^2) - Follow up in 6 months for hypertension visit 2. Bradycardia - ICD9: 427.89, ICD10: R00.1 - follow-up with cardiology as scheduled 3. Skin eruption - ICD9: 782.1, ICD10: R21 - follow-up if not resolving Jeanette Berrios, ALEXA.RADIATION ENGINEER Prescription instructions reviewed with patient as applicable. Patient advised if symptoms do not improve or if symptoms worsen sooner, to contact their primary care physician. Potential red flag symptoms discussed with the patient. Reviewed appropriate action plan to take if red flag symptoms occur. Patient agreeable to treatment plan. I spent a total of 25 minutes on the date of the service which included preparing to see the patient, isti-dw-eunr patient care, completing clinical documentation, obtaining and/or reviewing separately obtained history, performing a medically appropriate examination, counseling and educating the pat ient/family/caregiver, and ordering medications, tests, or procedures. documented in this encounterMer[facility]07-03-2023 Miscellaneous Notes* Telephone Encounter - Priti Heck LPN - 03/19/2023 2:49 PM EDT Thi from [facility] asking that last office visit and EKg be faxed to Dr. Xuan Castillo. These were faxed to [phone]. documented in this encounterMercy Health St. [facility]06-07-2023 Miscellaneous Notes* Telephone Encounter - Adriana Landry LPN - 02/21/2023 10:59 AM EDT Patient returned call and went over results, notes from Jeanette Berrios EPIDEMIOLOGY INVESTIGATOR with understanding. Patient said she can not take statins, she is trying to eat better, she went back to work and does not eat meal in the evening, eats popcorn. Advised may want to research mediterranean diet, avoid fast foods, processed foods. * Telephone Encounter - Krystin Zimmerman LPN - 02/21/2023 10:42 AM EDT Message left for patient to call office back for update. Krystin Zimmerman LPN * Telephone Encounter - Krystin Zimmerman LPN - 02/21/2023 10:41 AM EDT ----- Message from Jeanette Berrios APRN.RADIATION ENGINEER sent at 02/21/2023 7:45 AM EDT ----- Cholesterol levels about the same as last check. Continue to eat lower saturated fat diet and aim for at least 150 minutes of exercise per week. A1c remains the same in prediabetic range- continue lower carbohydrate diet and exercise as mentioned abo ve. The rest of her blood work is within acceptable ranges. Jeanette Berrios APRN.RADIATION ENGINEER documented in this encounterMercy Health St. [facility]06-06-2023 Nurse Note* Krystin Zimmerman LPN - 02/20/2023 9:25 AM EDT ROSALVA BP: BP 163/84 P 47 #1 BP 167/90 P 47 #2 BP 166/80 P 50 #3 BP 164/89 P 47 #4 BP 164/90 P 46 #5 BP 153/84 P 46 #6 BP 166/81 P 47 Krystin Zimmerman LPN documented in this encounterMercy Health St. [facility]06-06-2023 History of Present illness Narrative* Jeanette Berrios APRN.RADIATION ENGINEER - 02/20/2023 8:46 AM EDT 02/20/2023 Patient presents with: F/U 6 Month SUBJECTIVE: This is a 67 year old that is here today for Above Complaints. Since last office visit has bee in good health without ER visits or hospitalizations. HTN: Patient is compliant with meds Yes Monitors bp at home: No. Denies side effects: Yes. Chest pain: No. Dyspnea: No. Edema: No. Palpitations: No. Syncope: No. Headache: No. Dizziness: No. Has noted swelling to left lower leg at the end of the day. Swelling gone in the morning. Denies leg pain or redness. No recent surgeries, being bedridden or injury to leg Folows with pulmnologist every three months for hx of asthma. Has upcoming appointment. No medication changes HYPOTHYROIDISM: taking synthroid as prescribed without side effects Heart rate low on exam. Admits to occasional dizziness. Denies new prescribed medications, pre syncope, syncope, SOB, dyspnea, orthopnea, chest pain or palpitations. PAST MEDICAL HISTORY Diagnosis Date Anxiety with depression Chronic back pain Chronic kidney disease (CKD), stage III (moderate) (HCC) Colon polyp tubular adenoma [address] 07/16 to 08/17 DDD (degenerative disc disease), lumbar seeing Dr. Johnson Dysphagia Dr. Stiles Ectopic 1991 GERD (gastroesophageal reflux disease) History of prediabetes Hyperlipidemia Hypertension Hypothyroidism Obesity (BMI 30.0-34.9) Other pulmonary embolism without acute cor pulmonale (HCC) Pneumonia due to COVID-19 virus Requiring intubation ALLERGIES Meagan Inhibitors, Codeine, Remeron [Mirtazapine], Mpqycpi-Cjq-Zfz Reductase Inhibitors, Michie, and Zetia [Ezetimibe] MEDICATIONS Current Outpatient Medications Medication Sig calcium carbonate (CALCIUM 500 ORAL) Take 1,000 mg by mouth once daily. HYDROcodone-acetaminophen (NORCO) 5-325 mg per tablet Take 1 tablet by mouth every 8 hours as needed for pain. levothyroxine (SYNTHROID) 25 mcg tablet Take 1 tablet by mouth once daily. losartan (COZAAR) 25 mg tablet Take 1 tablet by mouth once daily. potassium chloride (K-TAB) 10 mEq tablet Take two tablets daily fluticasone (FLONASE) 50 mcg/actuation nasal spray Use 2 Sprays in each nostril once daily. Rinse mouth after use. INV VITAMIN D3 5000 UNITS CAPSULE (IRB 19-1548) Take 1 capsule by mouth once daily. For Investigational Drug Use Only. PI: Krystin Rodrigues, PhD. Take one capsule by mouth daily for 3 months prior to surgery and 3 months after surgery. red yeast rice 600 mg tab Take 2 tablets by mouth once daily. albuterol (PROVENTIL) 2.5 mg /3 mL (0.083 %) nebulizer solution Use 3 mL via nebulizer every 4 hours as needed for Wheezing/Shortness of Breath. Use over 5-15minutes. Omeprazole 40 mg capsule Take 1 capsule by mouth twice daily. gabapentin (NEURONTIN) 400 mg capsule Take 400 mg by mouth three times daily. mv,jaci,iron,mn/folic acid/chol (SVWQ-EABD-KRPEJ, PABA, ORAL) Take 1 tablet by mouth once daily. (Patient not taking: Reported on 08/22/2022) Minoxidil 2 % external solution Apply 1 mL to affected area twice daily. No current facility-administered medications for this visit. Medications and allergies reviewed by this provider. SOCIAL HISTORY Social History Tobacco Use Smoking status: Former Packs/day: 1.00 Years: 49.00 Pack years: 49.00 Types: Cigarettes Quit date: 08/14/2016 Years since quittin.5 Smokeless tobacco: Never Substance Use Topics Alcohol use: No Drug use: No REVIEW OF SYSTEMS All other reviewed and negative other than HPI. OBJECTIVE: BP 148/78 Pulse (!) 48 Resp 18 Wt 83.6 kg (184 lb 6.4 oz) SpO2 95% BMI 32.66 kg/m . Vitalsigns reviewed by this provider. APPEARANCE Well appearing, alert, in no acute distress, well-hydrated, well nourished. EYES PERRLA, conjunctiva and sclera normal. HEART Regular rhythm, bradycardiac rate with normal S1 and S2, no murmurs, no gallops, no JVD appreciated LUNG clear to auscultation. No wheezes, rhonchi or rales EXTREMITIES Extremities normal, No deformities, No skin discoloration, and No edema SKIN Skin color, texture, turgor normal, no suspicious rashes or lesions to exposed skin Component Latest Ref Rng & Units 08/22/2022 Protein, Total 6.3 - 8.0 g/dL 7.1 Albumin 3.9 - 4.9 g/dL 4.3 Calcium 8.5 - 10.2 mg/dL 9.7 Bilirubin, Total 0.2 - 1.3 mg/dL 0.4 Alkaline Phosphatase 34 - 123 U/L 96 AST 13 - 35 U/L 21 ALT 7 - 38 U/L 20 Glucose 74 - 99 mg/dL 94 BUN 7 - 21 mg/dL 17 Creatinine 0.58 - 0.96 mg/dL 1.03 (H) Sodium 136 - 144 mmol/L 144 Potassium 3.7 - 5.1 mmol/L 4.5 Chloride 97 - 105 mmol/L 106 (H) CO2 22 - 30 mmol/L 27 Anion Gap 9 - 18 mmol/L 11 eGFR >=60 mL/min/1.73m 60 Cholesterol, Total <200 mg/dL 225 (H) Triglyceride <150 mg/dL 54 HDL Cholesterol >39 mg/dL 63 Non HDL Cholesterol <130 mg/dL 162 (H) Fasting Time hrs 14 VLDL Cholesterol <30 mg/dL 11 TC:HDL Ratio <5.10 3.57 LDL Cholesterol <100 mg/dL 151 (H) LDL:HDL Ratio <2.54 2.40 Hemoglobin A1C 4.3 - 5.6 % 6.0 (H) Estimated Average Glucose mg/dL 126 TSH 0.270 - 4.200 mIU/L 1.620 MAMMOGRAM due on 07/16/2020 COVID-19 VACCINE(3 - Booster for Moderna series) due on 01/19/2021 ADVANCE DIRECTIVE DISCUSSION Never done LUNG CANCER SCREENING due on 01/18/2023 COLORECTAL CANCER SCREENING due on 03/28/2023 ANNUAL PCP TEAM CHRONIC DISEASE VISIT due on 09/19/2023 BP CONTROLLED (<130/80) due on 09/19/2023 DIABETES SCREEN due on 08/22/2025 LIPID SCREEN due on 08/22/2027 BONE DENSITY Completed INFLUENZA Completed HEPATITIS C SCREENING Completed PNEUMOCOCCAL: 65+ Completed DTAP,TDAP,TD Discontinued SHINGRIX VACCINE Discontinued ASSESSMENT/PLAN: 1. Essential hypertension - ICD9: 401.9, ICD10: I10 (primary diagnosis) - Worsening control - Continue current medications - Recommend home blood pressure monitoring, to bring results to next visit - Encouraged sodium restriction, DASH or Mediterranean diet - Recommend regular aerobic exercise - Discussed need for and benefit of weight loss. BMI 32.66 kg/(m^2) - Reviewed risks of hypertension and principles of treatment - Follow up in 4 weeks for hypertension visit 2. Prediabetes - ICD9: 790.29, ICD10: R73.03 - HGB A1C 3. Acquired hypothyroidism - ICD9: 244.9, ICD10: E03.9 - Instructed patient on importance of taking on an empty stomach either first thing in the morning or at bedtime. - check TSH today - Follow up in 6 months - TSH BLD 4. Hyperlipidemia, unspecified hyperlipidemia type - ICD9: 272.4, ICD10: E78.5 - control to be determined - statin intolerant - Counseled on healthy diet and regular exercise - Discussed need for and benefit of weight loss. BMI 32.66 kg/(m^2) - Follow up in 6 months, sooner should any other issues arise. - COMP METABOLIC PANEL - LIPID PANEL BASIC 5. Bradycardia - ICD9: 427.89, ICD10: R00.1 - no red flag symptoms or exam findings - red flag symptoms discussed, verbalizes understanding - CBC + DIFF - TSH BLD - COMP METABOLIC PANEL - MAGNESIUM BLD - CONSULT TO CARDIOLOGY - EXERCISE STRESS ECG (WITHOUT IMAGING) - ECG COMPLETE EKG Interpretation: RHYTHM: Sinus bradycardia at 44 beats per minute AXIS: Normal axis INTERVALS: 1st degree AV block QRS COMPLEX: Normal ST SEGMENT: Normal ST-T segments QT INTERVAL: Normal COMPARED WITH PRIOR: changed new first degree block and bradycardia - follow-up pending testing to ER with red flag symptoms 6. First degree AV block - ICD9: 426.11, ICD10: I44.0 - plan as in #5 - CONSULT TO CARDIOLOGY - EXERCISE STRESS ECG (WITHOUT IMAGING) 7. Stage 3 chronic kidney disease, unspecified whether stage 3a or 3b CKD (HCC) - ICD9: 585.3, ICD10: N18.30 - stable - Counseled on avoiding NSAIDs, adequate hydration - ACEi/ARB prescribed: losartan - follow-up pending blood work Jeanette Berrios APRN.RADIATION ENGINEER Prescription instructions reviewed with patient as applicable. Patient advised if symptoms do not improve or if symptoms worsen sooner, to contact their primary care physician. Potential red flag symptoms discussed with the patient. Reviewed appropriate action plan to take if red flag symptoms occur. Patient agreeable to treatment plan. I spent a total of 30 minutes on the date of the service which included preparing to see the patient, keup-yu-zqia patient care, completing clinical documentation, obtaining and/or reviewing separately obtained history, performing a medically appropriate examination, counseling and educating the pat ient/family/caregiver, and ordering medications, tests, or procedures. documented in this encounterMercy Health St. [facility]05-10-2023 History of Present illness Narrative* Barbara Salinas LPN - 01/24/2023 10:09 AM EDT Per Betsy nAdre was provided with powerstep original, size 8, and instructed/educated in its application, wear, and care. All questions were answered, and patient was able to demonstrate competence with the necessary skills to utilize the above equipment. Per Betsy Andre was provided with gel toe cap, size S, and instructed/educated in its application, wear, and care. All questions were answered, and patient was able to demonstrate competence with the necessary skills to utilize the above equipment. Barbara Salinas LPN * Talat Merida - 01/24/2023 9:56 AM EDT Images from the original note were not included. Chief Complaint: This 67 year old female who presents with chief complaint:left 5th toe pain HPI Patient presents to clinic for evaluation of left 5th toe. For the past 6 months, she has pain to the lateral aspect of left 5th toe. She states the pain is present mostly whenevr she is on her foot but there is still pain and throbbing when she is sitting. She has purchased wider shoes to help with the pain. Patient has used powerstep inserts and these have helped PAIN EVALUATION 01/24/2023 0915 Pain Level: 10 Pain Location: Toe 5th toe Description: Sore;Throbbing Duration Amount of Time: 7 Duration Units: Months Frequency: Intermittent Intervention/Comfort measure: Reposition;Relaxation;Medication Hemoglobin A1C (%) Date Value 08/22/2022 6.0 10/06/2020 5.4 04/09/2020 6.4 07/02/2019 6.3 12/26/2018 6.3 PCP: Girish Lemos MD PAST MEDICAL HISTORY Diagnosis Date Anxiety with depression Chronic back pain Chronic kidney disease (CKD), stage III (moderate) (HCC) Colon polyp tubular adenoma [address] 07/16 to 08/17 DDD (degenerative disc disease), lumbar seeing Dr. Johnson Dysphagia Dr. Stiles Ectopic 1991 GERD (gastroesophageal reflux disease) History of prediabetes Hyperlipidemia Hypertension Hypothyroidism Obesity (BMI 30.0-34.9) Other pulmonary embolism without acute cor pulmonale (HCC) Pneumonia due to [place] [address] virus Requiring intubation Current Outpatient Medications Medication Sig HYDROcodone-acetaminophen (NORCO) 5-325 mg per tablet Take 1 tablet by mouth every 8 hours as needed for pain. levothyroxine (SYNTHROID) 25 mcg tablet Take 1 tablet by mouth once daily. losartan (COZAAR) 25 mg tablet Take 1 tablet by mouth once daily. potassium chloride (K-TAB) 10 mEq tablet Take two tablets daily fluticasone (FLONASE) 50 mcg/actuation nasal spray Use 2 Sprays in each nostril once daily. Rinse mouth after use. INV VITAMIN D3 5000 UNITS CAPSULE (IRB 19-1548) Take 1 capsule by mouth once daily. For Investigational Drug Use Only. PI: Krystin Rodrigues, PhD. Take one capsule by mouth daily for 3 months prior to surgery and 3 months after surgery. red yeast rice 600 mg tab Take 2 tablets by mouth once daily. mv,jaci,iron,mn/folic acid/chol (HCOT-KINO-XOBDW, PABA, ORAL) Take 1 tablet by mouth once daily. (Patient not taking: Reported on 08/22/2022) Minoxidil 2 % external solution Apply 1 mL to affected area twice daily. albuterol (PROVENTIL) 2.5 mg /3 mL (0.083 %) nebulizer solution Use 3 mL via nebulizer every 4 hours as needed for Wheezing/Shortness of Breath. Use over 5-15minutes. Omeprazole 40 mg capsule Take 1 capsule by mouth twice daily. gabapentin (NEURONTIN) 400 mg capsule Take 400 mg by mouth three times daily. No current facility-administered medications for this visit. ALLERGIES Allergen Reactions Meagan Inhibitors Rash Codeine Vomiting, Other: See Comments Headache Remeron [Mirtazapin* Other: See Comments Fatigue Mdlhltu-Wvc-Nho Red* Myalgia Michie Unknown Zetia [Ezetimibe] Myalgia PAST SURGICAL HISTORY Procedure Laterality Date APPENDECTOMY 1966 BREAST LUMPECTOMY HX Bilateral BREAST RECONSTRUCTION Right SECTION HX 1973, 1975 CHOLECYSTECTOMY 2016 COLONOSCOPY 2016 repeat in 3 years, Dr. Stiles LYSIS OF ADHESIONS 1978 PAST SURGICAL HISTORY OF 1981 tubal reconstruction PAST SURGICAL HISTORY OF 2013 back surgery, microdiscectomy? PAST SURGICAL HISTORY OF Bilateral vericose vein stripping PAST SURGICAL HISTORY OF Bilateral heel spurs PAST SURGICAL HISTORY OF Bilateral surgery for epicondylitis PAST SURGICAL HISTORY OF cyst removal from eyelids TONSILLECTOMY HX 1957 FAMILY HISTORY Problem Relation Age of Onset Cancer Mother lung Hypertension Mother Cancer Father lung Cancer Brother lung Stroke Maternal Grandmother or [place], patient unsure Coronary Artery Disease Maternal Grandfather No Known Problems Sister Social History Tobacco Use Smoking status: Former Packs/day: 1.00 Years: 49.00 Pack years: 49.00 Types: Cigarettes Quit date: 08/14/2016 Years since quittin.4 Smokeless tobacco: Never Substance Use Topics Alcohol use: No Drug use: No REVIEW OF SYSTEMS GENERAL: Negative for Malaise, significant weight loss, fever RESPIRATORY: Negative for cough, wheezing and shortness of breath CARDIOVASCULAR: Negative for chest pain, leg swelling and palpitations GI: Negative for abdominal discomfort, blood in stools or black stools and change in bowel habits : Negative for dysuria, frequency and incontinence MUSCULOSKELETAL: Negative for joint pain or swelling, back pain, and muscle pain. SKIN: Negative for lesions, rash, and itching. HEMATOLOGY/LYMPHOLOGY Negative for prolonged bleeding, bruising easily, and swollen nodes. ENDOCRINE: Negative for cold or heat intolerance, polyuria, polydipsia and goiter. NEURO: negative Physical Exam: Constitutional: Pt is a well developed 67 year old female who is alert, oriented and cooperative Eyes: Following during examination. No redness or drainage. Respiratory: RR normal and nonlabored. Even breathing. No evidence of distress or shortness of breath. Psychology: Patient is engaged during conversation. Normal affect and mood. Does not appear depressed or anxious during encounter. Vascular: Dorsalis pedis and posterior tibial pulses palpable as b/l Capillary Fill time < 5 seconds to digits 1-5 b/l Skin temperature warm to warm proximal to distal b/l Hair growth present to digits Neurological: intact light touch/epicritic sensation b/l intact protective sensation no significant neurological deficits Dermatological: Nails 1-5 b/l appear normal. Webspaces clean and dry 1-4 b/l. Skin appears well hydrated and supple. good color, texture, turgor. No open lesions present. No callosities present. Musculoskeletal/Orthopaedic: Patient has pain to palpation of left lateral 5th toe With patient standing, she does have varus appearance of left 5th toe but the toe is rectus Foot type is neutral structurally AJ ROM is full with knee extended and flexed 1st MPJ is decreased when loaded and no pain or crepitus are noted with ROM. MTJ, STJ are full and free of pain and crepitus. +5/5 muscle strength dorsiflexion, plantarflexion, inversion, eversion b/l Radiographs: 3 views left foot ordered January 24, 2023: I have personally reviewed and interpreted these XR myself: varus rotation of left 5th toe ASSESSMENT: (M20.42) Hammertoe of left foot (primary encounter diagnosis) (M79.675) Pain in toe of left foot PLAN: 1. History and physical examination performed. 2. XR reviewed with patient and interpreted today 3. Discussed pain in left 5th toe. She has varus deformity of left 5th toe, deformity that is placing more pressure on lateral left 5th toe. The toe itself is pretty rectus so any derotational arthroplasty would likely lead to overcorrction of toe. I am going to suggest she try using a gel pad. This will ikely help. She could opt for exostectomy but I am not confident this would do much. I would try to treat with wider shoes, padding and isnerts 4. Powerstep inserts was dispensed. Talat Merida DPM Podiatry [address] [facility] [address] Dept: [phone] Dept * Barbara Salinas LPN - 01/24/2023 9:14 AM EDT AMB ROOMING INTAKE FLOWSHEET DATA Pain Pain Level: 10 Pain Location: Toe (5th toe) Description: Sore, Throbbing Duration Amount of Time: 7 Duration Units: Months Frequency: Intermittent Intervention/Comfort measure: Reposition, Relaxation, Medication Patient presents with: Left 5th Toe - Established Patient, Pain, Swelling Patient present to office with left 5th toe pain, swelling, and redness. Patient states she has hadno known injury to 5th toe. Barbara Salinas LPN documented in this encounterMercy Health [facility]. [facility]05-10-2023 Instructions* Patient Instructions* Talat Merida - 01/24/2023 10:02 AM EDT Recommend gel pad while walking to help cushion the left 5th toe Powerstep Original Full length. Can purchase at [facility] [employer] here in [place], [employer] in [place] or [place]. Also can find in [place] in [facility]. Powersteps can also be purchased online, starting around $25.00 If you have a metatarsal or dancer pad for your feet apply the pad directly to the insole so you can interchange between your shoes. Find a shoe with a removable insole and take this out and replace with your powerstep insole. Always bring powersteps with you when shopping for shoes so that you can make sure that everything fits well together documented in this encounterMercy Health St. [facility]05-10-2023 History of Present illness Narrative* Antonia Simms RT(R) - 01/24/2023 9:00 AM EDT Radiology Service Progress Note PATIENT NAME: Betsy Rodrigez DATE OF SERVICE: January 24, 2023 TIME: 8:50 AM PATIENT IDENTITY VERIFICATION COMPLETED USING TWO (2) IDENTIFIERS: Name and Date of confirmedby patient verbally. FALL SCREENING: Has the patient had 2 falls in the last year or 1 fall with injury or currently using an Ambulatory Assistive Device (Walker, Cane, Wheelchair, Crutches, etc.)? No PATIENT GENDER DATA: Female. status: : No status: NO. PATIENT RELEVANT IMPLANT DATA REVIEWED: Not Applicable RADIOLOGY DEPARTMENT: General X-ray: Exam(s) Completed: Lower Extremity X- Ray(s): Foot, Left and Wt. Bearing PERIPHERAL IV DATA: Not applicable SIGNED BY: RT Dameon(R) January 24, 2023 8:50 AM documented in this encounterMercy Health St. [facility]01-06-2023 Miscellaneous Notes* Telephone Encounter - Rachael Baker RN - 09/22/2022 11:48 AM EST Pt called and is notified of providers results and instructions. Pt voices understanding. Rachael Baker RN * Telephone Encounter - Jeanette Berrios APRN.CNP - 09/22/2022 11:23 AM EST Please let patient know her bone density testing was normal. For her age it is recommend to take 1200 mg of calcium and 2000 units of vitamin D. Stay active with weight bearing activities which include walking and light weight lifting. Jeanette Berrios APRN.CNP documented in this encounterMercy Health St. [facility]01-04-2023 History of Present illness Narrative* Dayo Cardoso RT(R) - 09/20/2022 10:00 AM EST Radiology Service Progress Note PATIENT NAME: Betsy Rodrigez DATE OF SERVICE: September 20, 2022 TIME: 9:58 AM PATIENT IDENTITY VERIFICATION COMPLETED USING TWO (2) IDENTIFIERS: Name and Date of confirmedby patient verbally. FALL SCREENING: Has the patient had 2 falls in the last year or 1 fall with injury or currently using an Ambulatory Assistive Device (Walker, Cane, Wheelchair, Crutches, etc.)? Yes, Patient High Riskfor Falls What interventions were put in place to prevent falls during this visit? Increased Observations by Caregivers PATIENT GENDER DATA: Female. status: : No status: NO. PATIENT RELEVANT IMPLANT DATA REVIEWED: Not Applicable RADIOLOGY DEPARTMENT: Bone Density PERIPHERAL IV DATA: Not applicable SIGNED BY: RT Farhan(R) September 20, 2022 9:58 AM documented in this encounterMercy Health St. [facility]01-03-2023 Procedure note* Girish Lemos MD - 09/19/2022 9:48 AM EST After the risks and options of alternative treatments were reviewed, the lesion(s) located on Rightaxilla were treated with cryosurgery after prepping area with alcohol. A total of 3 lesion(s) were treated. Girish Lemos MD documented in this [facility]01-03-2023 Instructions* Patient Instructions* Girish Lemos MD - 09/19/2022 9:42 AM EST SKIN CARE AFTER CRYOSURGERY The SKIN'S response to cryosurgery (freezing) can be mild to more severe, depending on the depth ofthe freeze and the location of the area treated. You may have only mild redness and swelling with alittle discomfort of significant discoloration and blistering with considerable discomfort. A burning sensation in the skin may last from several minutes to several hours after the procedure. Follow these instructions when caring for an area treated by cryosurgery: MINOR RESPONSE: 1. The area may sing or burn for a short time after treatment. 2. The treated area will be red in color at first then turn brown and flakey as it heals and the upper layer of skin sloughs off. 3. Gently cleanse the area with anti-bacterial soap and water. Pat dry and apply a thin film of antibiotic ointment. Do this at least once a day to prevent infection. MAJOR RESPONSE: 1. Follow instructions as stated for minor response. 2. The area may sting and burn for several hours after treatment. 3. To relieve throbbing and pain, elevate the treatment area. 4. If instructed by your physician, you may take qdhd-hqj-guutrgn pain medications as needed for discomfort. 5. A blister will form in the area of freezing. It may be filled with clear fluid or blood. This response is not unusual. 6. Do not break the blister unless it becomes uncomfortable. You may prick the blister with a sterile needle or pin to remove the fluid. Leave the skin intact. 7. All treated areas usually heal within 3 to 4 weeks. If you have problems or questions, please call the office at . documented in this encounter[facility] History of Present illness Narrative* Girish Lemos MD - 09/19/2022 9:31 AM EST Chief Complaint Patient presents with: Derm Problem: In for removal of skin tags HPI Betsy Rodrigez is a 66 year old female who presents here today for Above Complaints. Patient requesting skin tag removal from right axilla. Irritating and bothers her when she tries toshave. No erythema, infection, drainage. Risks and benefits discussed. Past medical history, appointments, medications, allergies reviewed. Previous Medical History PAST MEDICAL HISTORY Diagnosis Date Anxiety with depression Chronic back pain Chronic kidney disease (CKD), stage III (moderate) (HCC) Colon polyp tubular adenoma [address] 07/16 to 08/17 DDD (degenerative disc disease), lumbar seeing Dr. Johnson Dysphagia Dr. Stiles Ectopic 1991 GERD (gastroesophageal reflux disease) History of prediabetes Hyperlipidemia Hypertension Hypothyroidism Obesity (BMI 30.0-34.9) Other pulmonary embolism without acute cor pulmonale (HCC) Pneumonia due to COVID-19 virus Requiring intubation Previous Surgical History PAST SURGICAL HISTORY Procedure Laterality Date APPENDECTOMY 1966 BREAST LUMPECTOMY HX Bilateral BREAST RECONSTRUCTION Right SECTION HX 1974, 1975 CHOLECYSTECTOMY 2016 COLONOSCOPY 2016 repeat in 3 years, Dr. Stiles LYSIS OF ADHESIONS 1978 PAST SURGICAL HISTORY OF 1981 tubal reconstruction PAST SURGICAL HISTORY OF 2013 back surgery, microdiscectomy? PAST SURGICAL HISTORY OF Bilateral vericose vein stripping PAST SURGICAL HISTORY OF Bilateral heel spurs PAST SURGICAL HISTORY OF Bilateral surgery for epicondylitis PAST SURGICAL HISTORY OF cyst removal from eyelids TONSILLECTOMY HX 1957 Family History FAMILY HISTORY Problem Relation Age of Onset Cancer Mother lung Hypertension Mother Cancer Father lung Cancer Brother lung Stroke Maternal Grandmother or [place], patient unsure Coronary Artery Disease Maternal Grandfather No Known Problems Sister Patient Allergies ALLERGIES Allergen Reactions Meagan Inhibitors Rash Codeine Vomiting, Other: See Comments Headache Remeron [Mirtazapin* Other: See Comments Fatigue Wnpssvl-Rim-Iaf Red* Myalgia Michie Unknown Zetia [Ezetimibe] Myalgia Current Medications Current Outpatient Medications on File Prior to Visit Medication Sig HYDROcodone-acetaminophen (NORCO) 5-325 mg per tablet Take 1 tablet by mouth every 8 hours as needed for pain. clotrimazole (LOTRIMIN, CLOTRIM) 1 % cream Apply to affected area twice daily. levothyroxine (SYNTHROID) 25 mcg tablet Take 1 tablet by mouth once daily. losartan (COZAAR) 25 mg tablet Take 1 tablet by mouth once daily. potassium chloride (K-TAB) 10 mEq tablet Take two tablets daily fluticasone (FLONASE) 50 mcg/actuation nasal spray Use 2 Sprays in each nostril once daily. Rinse mouth after use. red yeast rice 600 mg tab Take 2 tablets by mouth once daily. albuterol (PROVENTIL) 2.5 mg /3 mL (0.083 %) nebulizer solution Use 3 mL via nebulizer every 4 hours as needed for Wheezing/Shortness of Breath. Use over 5-15minutes. Omeprazole 40 mg capsule Take 1 capsule by mouth twice daily. gabapentin (NEURONTIN) 400 mg capsule Take 400 mg by mouth three times daily. INV VITAMIN D3 5000 UNITS CAPSULE (IRB 19-1548) Take 1 capsule by mouth once daily. For Investigational Drug Use Only. PI: Krystin Rodrigues, PhD. Take one capsule by mouth daily for 3 months prior to surgery and 3 months after surgery. mv,jaci,iron,mn/folic acid/chol (KVZN-GAHU-UBNWB, PABA, ORAL) Take 1 tablet by mouth once daily. (Patient not taking: Reported on 08/22/2022) Minoxidil 2 % external solution Apply 1 mL to affected area twice daily. No current facility-administered medications on file prior to visit. Social History Social History Tobacco Use Smoking status: Former Packs/day: 1.00 Years: 49.00 Pack years: 49.00 Types: Cigarettes Quit date: 08/14/2016 Years since quittin.1 Smokeless tobacco: Never Substance Use Topics Alcohol use: No Drug use: No Review of Symptoms REVIEW OF SYSTEMS GENERAL: No weight loss, malaise or fevers EXAM: BP 122/70 Pulse (!) 56 Resp 16 SpO2 96% General Appearance: Well appearing, alert, in no acute distress, well-hydrated, well nourished.. Skin: 3 small skin tags in right axilla, one pedunculated. No cellulitis. Health Maintenance List BONE DENSITY Never done MAMMOGRAM due on 07/16/2020 COVID-19 VACCINE(3 - Booster for Moderna series) due on 01/19/2021 BP CONTROLLED (<130/80) due on 11/17/2021 ADVANCE DIRECTIVE DISCUSSION Never done LUNG CANCER SCREENING due on 01/18/2023 COLORECTAL CANCER SCREENING due on 03/28/2023 ANNUAL PCP TEAM CHRONIC DISEASE VISIT due on 08/22/2023 DIABETES SCREEN due on 08/22/2025 LIPID SCREEN due on 08/22/2027 INFLUENZA Completed HEPATITIS C SCREENING Completed PNEUMOCOCCAL: 65+ Completed DTAP,TDAP,TD Discontinued SHINGRIX VACCINE Discontinued ASSESSMENT/PLAN: 1. Skin tag - ICD9: 701.9, ICD10: L91.8 (primary diagnosis) See procedure note. Discussed home going instructions. Red flags for re- assessment reviewed with patient in detail. - REMOVAL OF SKIN TAGS 1-15 2. S/P cryotherapy of skin lesion - ICD9: V45.89, ICD10: Z98.890 - REMOVAL OF SKIN TAGS 1-15 Girish Lemos MD documented in this encounterMer[facility]12-23-2022 Miscellaneous Notes* Telephone Encounter - Jeanette Berrios APRN.CNP - 09/08/2022 9:38 AM EST Medications resent to [facility]. Jeanette Berrios APRN.CNP * Telephone Encounter - Poonam Denise RN - 09/08/2022 9:26 AM EST Patient calling and states her 4 recent scripts for lotrimin, levothyroxine, losartan, and potassium chloride were sent to incorrect pharmacy on 08/22/22. Patient asking if scripts can be sent to [facility] instead. Thank you. documented in this encounterMer[facility]12-07-2022 Miscellaneous Notes* Telephone Encounter - Rosario Tejada LPN - 08/23/2022 2:08 PM EST Pt notified of results & all advice provided, pt voiced understanding. Rosario Tejada LPN * Telephone Encounter - Jeanette Berrios APRN.CNP - 08/23/2022 12:32 PM EST Please call patient and let her know her cholesterol is similar to last check- recommend weight loss through at least 150 minutes of exercise per week and low fat diet. A1c up some from last check. Is in prediabetic range- eat lower carbs and work on weight loss to help. Kidney function improved from last check. TSH in normal range. Continue current medications. Jeanette Berrios APRN.CNP documented in this encounterMer[facility]12-06-2022 Instructions* Patient Instructions* Jeanette Berrios APRN.CNP - 08/22/2022 10:05 AM EST BONE MINERAL DENSITY PATIENT INSTRUCTIONS Bone mineral density testing measures the amount of calcium in certain parts of your bones. This information determines how strong your bones are. The test is used to detect osteoporosis, a disease in which the bone's mineral content and density are low, increasing a person's risk of fractures. Thelumbar spine (lower back) and the hip are the skeletal sites usually examined. For the test, remember that: 1. You cannot take this test if you are . 2. Eat a normal diet on the day of the test. 3. Take your medications as you normally would. 4. DO NOT take calcium supplements (such as Tums) for 24 hours before the test. 5. On the day of the test, leave valuables (jewelry or credit cards) at home. 6. The test should be performed prior to oral, rectal or IV contrast studies, or at least 7 days after any of these studies. For the test, you may be asked to wear a hospital gown. You will lie on your back, on a padded table, in a comfortable position. Generally, you can resume your usual activities immediately. documented in this encounterMercy [facility] St. [facility]12-06-2022 History of Present illness Narrative* Jeanette Berrios APRN.CNP - 08/22/2022 9:44 AM EST 08/22/2022 Patient presents with: Physical SUBJECTIVE: This is a 66 year old that is here today for Above Complaints. Since last office visit has been in good health without ER visits or hospitalizations. HYPOTHYROIDISM: taking synthroid as prescribed. GERD: taking omeprazole as prescribed. Works well to control symptoms HTN: Patient is compliant with meds Yes Monitors bp at home: No. Denies side effects: Yes. Chest pain: No. Dyspnea: No. Edema: No. Palpitations: No. Syncope: No. Headache: No. Dizziness: No. HYPERLIPIDEMIA: Patient is taking medications: Yes. Patient is watching diet: Yes. Patient denies myalgias: Yes. Patient denies gi upset: Yes CHRONIC BACK PAIN: seeing you Dr. Johnson for pain management. Sees him every two months. Taking gabapentin as prescribed. Has area on her left cuevas that has for about one month. Does not bother her. Thinks maybe ring wormor age spot. Has not put anything on area Had incident of bleeding with intercourse and some pain. Reports she does not think her wasfull erect and this is why. PAST MEDICAL HISTORY Diagnosis Date Anxiety with depression Chronic back pain Chronic kidney disease (CKD), stage III (moderate) (HCC) Colon polyp tubular adenoma [address] 07/16 to 08/17 DDD (degenerative disc disease), lumbar seeing Dr. Johnson Dysphagia Dr. Stiles Ectopic 1991 GERD (gastroesophageal reflux disease) History of prediabetes Hyperlipidemia Hypertension Hypothyroidism Obesity (BMI 30.0-34.9) Other pulmonary embolism without acute cor pulmonale (HCC) Pneumonia due to [place] [address] virus Requiring intubation ALLERGIES Meagan Inhibitors, Codeine, Remeron [Mirtazapine], Ygoqrbt-Aag-Slt Reductase Inhibitors, Michie, and Zetia [Ezetimibe] MEDICATIONS Current Outpatient Medications Medication Sig levothyroxine (SYNTHROID) 25 mcg tablet Take 1 tablet by mouth once daily. losartan (COZAAR) 25 mg tablet Take 1 tablet by mouth once daily. potassium chloride (K-TAB) 10 mEq tablet Take two tablets daily fluticasone (FLONASE) 50 mcg/actuation nasal spray Use 2 Sprays in each nostril once daily. Rinse mouth after use. INV VITAMIN D3 5000 UNITS CAPSULE (IRB 19-1548) Take 1 capsule by mouth once daily. For Investigational Drug Use Only. PI: Krystin Rodrigues, PhD. Take one capsule by mouth daily for 3 months prior to surgery and 3 months after surgery. ondansetron orally disintegrating (ZOFRAN ODT) 4 mg disintegrating tablet Take 1 tablet by mouth every 6 hours as needed for nausea/vomiting. red yeast rice 600 mg tab Take 2 tablets by mouth once daily. HYDROcodone-acetaminophen (NORCO) 5-325 mg per tablet Take 1 tablet by mouth every 8 hours as needed. albuterol (PROVENTIL) 2.5 mg /3 mL (0.083 %) nebulizer solution Use 3 mL via nebulizer every 4 hours as needed for Wheezing/Shortness of Breath. Use over 5-15minutes. Omeprazole 40 mg capsule Take 1 capsule by mouth twice daily. gabapentin (NEURONTIN) 400 mg capsule Take 400 mg by mouth three times daily. nystatin-triamcinolone (MYCOLOG) ointment Apply sparingly to perineum twice daily for irritation/infection. (Patient not taking: Reported on 08/22/2022) sertraline (ZOLOFT) 50 mg tablet Take 1 tablet by mouth once daily. (Patient not taking: No sig reported) mv,calcium,min/iron/folic/vitK (ONE-A-DAY WOMEN'S COMPLETE ORAL) Take 2 capsules by mouth once daily. (Patient not taking: Reported on 08/22/2022) mv,jaci,iron,mn/folic acid/chol (HBKR-TRKY-NBNWS, PABA, ORAL) Take 1 tablet by mouth once daily. (Patient not taking: Reported on 08/22/2022) Minoxidil 2 % external solution Apply 1 mL to affected area twice daily. No current facility-administered medications for this visit. Medications and allergies reviewed by this provider. SOCIAL HISTORY Social History Tobacco Use Smoking status: Former Packs/day: 1.00 Years: 49.00 Pack years: 49.00 Types: Cigarettes Quit date: 08/14/2016 Years since quittin.0 Smokeless tobacco: Never Substance Use Topics Alcohol use: No Drug use: No REVIEW OF SYSTEMS GENERAL: No weight loss, malaise or fevers HEENT: No changes in hearing or vision, no nose bleeds or other nasal problems NECK: Negative for lumps, goiter, pain and significant neck swelling RESPIRATORY: Negative for cough, hemoptysis, wheezing, COPD, dyspnea or shortness of breath CARDIOVASCULAR: Negative for chest pain, leg swelling, hypertension, CHF or palpitations GI: No nausea, vomiting, or diarrhea : No history of dysuria, frequency or incontinence MUSCULOSKELETAL: Negative for joint pain or swelling, back pain or muscle pain and back pain SKIN: See HPI PSYCH: Negative for sleep disturbance, mood disorder and recent psychosocial stressors HEMATOLOGY/LYMPHOLOGY: Negative for prolonged bleeding, bruising easily or swollen nodes ENDOCRINE: Negative for cold or heat intolerance, polyuria, polydipsia and goiter NEURO: No history of headaches, syncope, paralysis, seizures or tremors All other reviewed and negative other than HPI. OBJECTIVE: BP 138/78 Pulse (!) 58 Ht 160 cm (5' 3) Wt 82.6 kg (182 lb) SpO2 95% BMI 32.24 kg/m . Vital signs reviewed by this provider. APPEARANCE Well appearing, alert, in no acute distress, well-hydrated, well nourished. EYES PERRLA, conjunctiva and sclera normal. EARS External ears normal, canals clear HEART RRR with normal S1 and S2, no murmurs, no gallops, no JVD appreciated LUNG clear to auscultation ABDOMEN bowel sounds normoactive, no bruits, soft, non-tender, non-distended EXTREMITIES Extremities normal, No deformities, No skin discoloration, and No edema SKIN approx dime sized circular area with central clearing and scaling otherwise skin color, texture, turgor normal, no suspicious rashes or lesions Component Latest Ref Rng & Units 11/15/2021 WBC 3.70 - 11.00 k/uL 15.19 (H) RBC 3.90 - 5.20 m/uL 4.80 Hemoglobin 11.5 - 15.5 g/dL 13.8 Hematocrit 36.0 - 46.0 % 42.5 MCV 80.0 - 100.0 fL 88.5 MCH 26.0 - 34.0 pg 28.8 MCHC 30.5 - 36.0 g/dL 32.5 RDW-CV 11.5 - 15.0 % 13.5 Platelet Count 150 - 400 k/uL 233 MPV 9.0 - 12.7 fL 10.7 NRBC /100 WBC 0.0 Absolute nRBC <0.01 k/uL <0.01 Neut% % 77.0 Abs Neut (ANC) 1.45 - 7.50 k/uL 11.70 (H) Lymph% % 9.0 Abs Lymph 1.00 - 4.00 k/uL 1.37 [place]% % 11.0 Abs [place] <0.87 k/uL 1.67 (H) Eosin% % 0.0 Abs Eosin <0.46 k/uL 0.00 Baso% % 0.0 Abs Baso <0.11 k/uL 0.00 [place]% % 2.0 Myelo% % 1.0 Left Shift Present Platelet Estimate Adequate Red Cell Morph Reviewed Polychromasia Slight Ovalocytes Few DTYPE Manual Protein, Total 6.3 - 8.0 g/dL 7.2 Albumin 3.9 - 4.9 g/dL 4.0 Calcium 8.5 - 10.2 mg/dL 9.5 Bilirubin, Total 0.2 - 1.3 mg/dL 0.3 Alkaline Phosphatase 34 - 123 U/L 68 AST 13 - 35 U/L 25 ALT 7 - 38 U/L 19 Glucose 74 - 99 mg/dL 123 (H) BUN 7 - 21 mg/dL 17 Creatinine 0.58 - 0.96 mg/dL 1.27 (H) Sodium 136 - 144 mmol/L 137 Potassium 3.7 - 5.1 mmol/L 3.8 Chloride 97 - 105 mmol/L 99 CO2 22 - 30 mmol/L 26 Anion Gap 9 - 18 mmol/L 12 eGFR >=60 mL/min/1.73m 46 (L) BONE DENSITY Never done MAMMOGRAM due on 07/16/2020 COVID-19 VACCINE(3 - Booster for Moderna series) due on 01/19/2021 ADVANCE DIRECTIVE DISCUSSION Never done LUNG CANCER SCREENING due on 01/18/2023 ANNUAL PCP TEAM CHRONIC DISEASE VISIT due on 03/23/2023 COLORECTAL CANCER SCREENING due on 03/28/2023 BP CONTROLLED (<130/80) due on 07/24/2023 DIABETES SCREEN due on 11/15/2024 LIPID SCREEN due on 11/17/2025 INFLUENZA Completed HEPATITIS C SCREENING Completed PNEUMOCOCCAL: 65+ Completed DTAP,TDAP,TD Discontinued SHINGRIX VACCINE Discontinued ASSESSMENT/PLAN: 1. Essential hypertension - ICD9: 401.9, ICD10: I10 (primary diagnosis) - good control - Continue current medication(s) - Encouraged dietary sodium restriction/DASH diet - Recommended regular aerobic exercise. - Recommend home blood pressure monitoring, to bring results in on next visit - Discussed need and benefit for weight loss. - Recheck in 6 months, sooner should new symptoms or problems arise. - Goal of BP <140/90 - Recommended no refined sugar, low refined starch, healthy oil intake (olive oil), healthy protein(fish) along the lines of the Mediterranean diet. - COMP METABOLIC PANEL - LOSARTAN 25 MG TABLET 2. Encounter for immunization - ICD9: V03.89, ICD10: Z23 - INFLUENZA SEASONAL QUADRIVALENT HIGH DOSE AGE 65+ - PNEUMOCOCCAL VACCINE (PREVNAR 20) 3. Prediabetes - ICD9: 790.29, ICD10: R73.03 - HGB A1C 4. Hyperlipidemia, unspecified hyperlipidemia type - ICD9: 272.4, ICD10: E78.5 - to be determined upon return of lab results - Encouraged following a low fat, low cholesterol diet. - Discussed the benefits of regular aerobic exercise and weight loss. - Check fasting lipid panel - Follow up in 6 months. - Encouraged following a low carbohydrate, healthy oil intake diet. - LIPID PANEL BASIC - COMP METABOLIC PANEL 5. Acquired hypothyroidism - ICD9: 244.9, ICD10: E03.9 - Instructed patient on importance of taking on an empty stomach either first thing in the morning or at bedtime. - check TSH today - continue current dose of Synthroid 0.025 mg - Follow up in 6 months - TSH BLD - LEVOTHYROXINE 25 MCG TABLET 6. Ringworm of body - ICD9: 110.5, ICD10: B35.4 - Treat with clotrimazole twice a day until rash resolves and then another week - Keep area of concern very dry. Ok to use OTC antifungal powder if area is moist - Follow up with PCP if symptoms persist or do not improved after 4-6 weeks of treatment. - CLOTRIMAZOLE 1 % TOPICAL CREAM 7. Screening for osteoporosis - ICD9: V82.81, ICD10: Z13.820 - DXA-AXIAL SKELETON 8. Gastroesophageal reflux disease without esophagitis - ICD9: 530.81, ICD10: K21.9 - controlled on current regime - follow-up as needed 9. Dyspareunia in female - ICD9: 625.0, ICD10: N94.10 - recommend she follow-up with [facility] 10. Abnormal vaginal bleeding in postmenopausal patient - ICD9: 627.1, ICD10: N95.0 - follow-up with [facility] Jeanette Berrios, ALEXA.RADIATION ENGINEER Prescription instructions reviewed with patient as applicable. Patient advised if symptoms do not improve or if symptoms worsen sooner, to contact their primary care physician. Potential red flag symptoms discussed with the patient. Reviewed appropriate action plan to take if red flag symptoms occur. Patient agreeable to treatment plan. I spent a total of 35 minutes on the date of the service which included preparing to see the patient, lnss-dh-urmu patient care, completing clinical documentation, obtaining and/or reviewing separately obtained history, performing a medically appropriate examination, counseling and educating the pat ient/family/caregiver, and ordering medications, tests, or procedures. documented in this encounterMer[facility]11-18-2022 Miscellaneous Notes* Telephone Encounter - Jen Pinedaamberly Pss - 08/04/2022 2:25 PM EST Patient has been identified by name and date of : Yes Last office visit in this department: 03/23/2022 Labs-11/15/21 NOV-none RX INSTRUCTIONS: Patient aware RX escripted to mail away pharmacy. No need to notify patient. Patient phones requesting refills as follows: Requested Prescriptions Pending Prescriptions Disp Refills levothyroxine (SYNTHROID) 25 mcg tablet 90 tablet 3 Sig: Take 1 tablet by mouth once daily. losartan (COZAAR) 25 mg tablet 90 tablet 3 Sig: Take 1 tablet by mouth once daily. potassium chloride (K-TAB) 10 mEq tablet 180 tablet 1 Sig: Take two tablets daily Please review and advise. Jen Patiño Pss documented in this encounterMer[facility]11-09-2022 Miscellaneous Notes* Telephone Encounter - Rosie Mcintosh APRN.CNP - 07/26/2022 10:20 AM EST Patient says her symptoms are gone at this time. Patient was instructed if symptoms return that sheshould come back and have another urine sample done. documented in this [facility]11-07-[facility] Instructions* Patient Instructions* Jamaica Malone APRN.CNP - 07/24/2022 5:50 PM EST Use mycolog cream as needed for irritation Will send cultures and call with results and treatment needed documented in this encounterMercy [facility]. [facility]11-07-2022 History of Present illness Narrative* Jamaica Malone APRN.CNP - 07/24/2022 5:37 PM EST Images from the original note were not included. Subjective The history is provided by the patient. No language tutor was used. HPI Betsy Rodrigez is a 66 year old female who presents today for CC of noticed blood with urination, vulvar itching and burning and redness of the skin in past 24 hours. She has not used any medications or treatment. She has not been sexually active for several years, attempted intercourse in the past week and was very painful. BP 110/68 Pulse 70 Temp 36.5 C (97.7 F) Resp 16 Wt 85.3 kg (188 lb) SpO2 97% BMI 32.52 kg/m Social History Tobacco Use Smoking status: Former Packs/day: 1.00 Years: 49.00 Pack years: 49.00 Types: Cigarettes Quit date: 08/14/2016 Years since quittin.9 Smokeless tobacco: Never Substance Use Topics Alcohol use: No Drug use: No PAST MEDICAL HISTORY Diagnosis Date Anxiety with depression Chronic back pain Chronic kidney disease (CKD), stage III (moderate) (HCC) Colon polyp tubular adenoma [address] 07/16 to 08/17 DDD (degenerative disc disease), lumbar seeing Dr. Johnson Dysphagia Dr. Stiles Ectopic 1991 GERD (gastroesophageal reflux disease) History of prediabetes Hyperlipidemia Hypertension Hypothyroidism Obesity (BMI 30.0-34.9) Other pulmonary embolism without acute cor pulmonale (HCC) Pneumonia due to COVID-19 virus Requiring intubation I have confirmed and edited as necessary, the [facility] Review of Systems Constitutional: Negative for chills, fever and malaise/fatigue. Gastrointestinal: Negative for abdominal pain. Genitourinary: Positive for hematuria. Negative for dysuria, flank pain, frequency and urgency. Objective Physical Exam Vitals and nursing note reviewed. Exam conducted with a shared services representative present. Constitutional: Appearance: Normal appearance. HENT: Mouth/Throat: Pharynx: Uvula midline. Pulmonary: Effort: Pulmonary effort is normal. Breath sounds: Normal breath sounds. Abdominal: General: Bowel sounds are normal. There is no abdominal bruit. Palpations: Abdomen is not rigid. There is no mass or pulsatile mass. Tenderness: There is no abdominal tenderness. There is no guarding or rebound. Negative signs include Chávez's sign and McBurney's sign. Genitourinary: Labia: Right: Tenderness present. Left: Tenderness present. Comments: Vaginal cultures done Neurological: Mental Status: She is alert and oriented to person, place, and time. Psychiatric: Mood and Affect: Affect normal. ASSESSMENT/PLAN: 1. Gross hematuria - ICD9: 599.71, ICD10: R31.0 (primary diagnosis) Appears to be from vulvar irritation Will send culture and call if treatment needed - UA DIP, URINE (POC) - URINE CULTURE 2. Acute vaginitis - ICD9: 616.10, ICD10: N76.0 Given mycolog for external irritation, will treat furter for positive culture. - BACTERIAL VAGINOSIS AMPLIFICATION - SUNI / TRICHOMONAS AMPLIFICATION Diagnosis and treatment plan were discussed and questions were answered to the patient's satisfaction. Pt acknowledged understanding of concepts and follow up plan. Specific signs and symptoms that would indicate the need for higher level of care were discussed indetail warranting prompt ER evaluation. [place] Malone APRN.CNP documented in this encounterMer[facility]22 Miscellaneous Notes* Telephone Encounter - Jeanette Berrios APRN.CNP - 07/24/2022 4:27 PM EST Reviewed. Jeanette Berrios APRN.CNP * Telephone Encounter - Phylicia Heredia RN - 07/24/2022 4:18 PM EST Patient calls for urinary symptoms(urgency, painful urination, and blood in urine). Nurse triage completed. Protocol recommends see provider within 24 hours. Appointment offered. Patient decided to go to [facility] for evaluation and treatment. Reason for Disposition [1] Pain or burning with passing urine (urination) AND [2] female Blood in urine (red, pink, or tea-colored) Answer Assessment - Initial Assessment Questions 1. SYMPTOM: Painful urination, blood in the urine, urgency. 2. ONSET: Yesterday 3. PAIN: Moderate 4. CAUSE: Patient believes a UTI. 5. OTHER SYMPTOMS: No fever. Chronic lower back pain unchanged. Blood in urine. Pain with urination. Answer Assessment - Initial Assessment Questions 1. SEVERITY: - MODERATE (4-7): interferes with normal activities - SEVERE (8-10): excruciating, unwilling or unable to urinate because of the pain 2. FREQUENCY: Each time 3. PATTERN: with each urination 4. ONSET: Yesterday 5. FEVER: No 6. PAST UTI: Previously and treated with antibiotic with positive results. 7. CAUSE: UTI 8. OTHER SYMPTOMS: Urgency. Blood in urine. Chronic flank pain. No vaginal discharge or genital sores. Protocols used: Urinary Eozttosb-GBVQX-KU, Urination Pain - Uhyfxv-JNYSE-UX documented in this encounterMercy Health St. [facility]07-07-2022 History of Present illness Narrative* Girish Lemos MD - 03/23/2022 10:53 AM EDT Chief Complaint Patient presents with: URI: x 1 week HPI Betsy Rodrigez is a 66 year old female who presents here today for Above Complaints. Patient states that since she was in [place] about 1 week ago when she developed itchy/watery eyes,rhinorrhea, productive cough with yellow/green sputum, sneezing, right ear pain/fullness, sore throat, fatigue. Denies fever/chills, SOB, wheezing, new loss of taste/smell, myalgias, nausea, vomiting, diarrhea. Treating with nyquil and OTC allergy medication which has not helped with symptoms. Symptoms worsening gradually. No recent sick contacts. No known COVID exposure in the last 2 weeks. Negative COVID rapid test this morning. Past medical history, appointments, medications, allergies reviewed. Previous Medical History PAST MEDICAL HISTORY Diagnosis Date Anxiety with depression Chronic back pain Chronic kidney disease (CKD), stage III (moderate) ([facility]) Colon polyp tubular adenoma [address] 07/16 to 08/17 DDD (degenerative disc disease), lumbar seeing Dr. Johnson Dysphagia Dr. Stiles Ectopic 1991 GERD (gastroesophageal reflux disease) History of prediabetes Hyperlipidemia Hypertension Hypothyroidism Obesity (BMI 30.0-34.9) Other pulmonary embolism without acute cor pulmonale (HCC) Pneumonia due to COVID-19 virus Requiring intubation Previous Surgical History PAST SURGICAL HISTORY Procedure Laterality Date APPENDECTOMY 1966 BREAST LUMPECTOMY HX Bilateral BREAST RECONSTRUCTION Right SECTION HX 1974, 1975 CHOLECYSTECTOMY 2016 COLONOSCOPY 2016 repeat in 3 years, Dr. Stiles LYSIS OF ADHESIONS 1978 PAST SURGICAL HISTORY OF 1981 tubal reconstruction PAST SURGICAL HISTORY OF 2013 back surgery, microdiscectomy? PAST SURGICAL HISTORY OF Bilateral vericose vein stripping PAST SURGICAL HISTORY OF Bilateral heel spurs PAST SURGICAL HISTORY OF Bilateral surgery for epicondylitis PAST SURGICAL HISTORY OF cyst removal from eyelids TONSILLECTOMY HX 1957 Family History FAMILY HISTORY Problem Relation Age of Onset Cancer Mother lung Hypertension Mother Cancer Father lung Cancer Brother lung Stroke Maternal Grandmother or [place], patient unsure Coronary Artery Disease Maternal Grandfather No Known Problems Sister Patient Allergies ALLERGIES Allergen Reactions Meagan Inhibitors Rash Codeine Vomiting, Other: See Comments Headache Remeron [Mirtazapin* Other: See Comments Fatigue Qczspui-Ulr-Xcn Red* Myalgia Michie Unknown Zetia [Ezetimibe] Myalgia Current Medications Current Outpatient Medications on File Prior to Visit Medication Sig potassium chloride (K-TAB) 10 mEq tablet Take two tablets daily levothyroxine (SYNTHROID) 25 mcg tablet Take 1 tablet by mouth once daily. losartan (COZAAR) 25 mg tablet Take 1 tablet by mouth once daily. ondansetron orally disintegrating (ZOFRAN ODT) 4 mg disintegrating tablet Take 1 tablet by mouth every 6 hours as needed for nausea/vomiting. red yeast rice 600 mg tab Take 2 tablets by mouth once daily. mv,calcium,min/iron/folic/vitK (ONE-A-DAY WOMEN'S COMPLETE ORAL) Take 2 capsules by mouth once daily. mv,jaci,iron,mn/folic acid/chol (ZWVS-YJDU-OVQYL, PABA, ORAL) Take 1 tablet by mouth once daily. HYDROcodone-acetaminophen (NORCO) 5-325 mg per tablet Take 1 tablet by mouth every 8 hours as needed. albuterol (PROVENTIL) 2.5 mg /3 mL (0.083 %) nebulizer solution Use 3 mL via nebulizer every 4 hours as needed for Wheezing/Shortness of Breath. Use over 5-15minutes. Omeprazole 40 mg capsule Take 1 capsule by mouth twice daily. gabapentin (NEURONTIN) 400 mg capsule Take 400 mg by mouth three times daily. INV VITAMIN D3 5000 UNITS CAPSULE (IRB 19-1548) Take 1 capsule by mouth once daily. For Investigational Drug Use Only. PI: Krystin Rodrigues, PhD. Take one capsule by mouth daily for 3 months prior to surgery and 3 months after surgery. sertraline (ZOLOFT) 50 mg tablet Take 1 tablet by mouth once daily. (Patient not taking: Reported on 11/25/2021 ) Minoxidil 2 % external solution Apply 1 mL to affected area twice daily. No current facility-administered medications on file prior to visit. Social History Social History Tobacco Use Smoking status: Former Smoker Packs/day: 1.00 Years: 49.00 Pack years: 49.00 Types: Cigarettes Quit date: 08/14/2016 Years since quittin.6 Smokeless tobacco: Never Used Substance Use Topics Alcohol use: No Drug use: No Review of Symptoms REVIEW OF SYSTEMS See HPI EXAM: BP 122/84 Pulse 69 Temp 37.1 C (98.7 F) (Right Tympanic) Resp 18 Wt 83.8 kg (184 lb 12.8 oz) SpO2 95% BMI 31.97 kg/m General Appearance: Well appearing, alert, in no acute distress, well-hydrated, well nourished.. Skin: Skin color, texture, turgor normal, no suspicious rashes or lesions. Head: Normocephalic, no masses, lesions, tenderness or abnormalities. Eyes: injected sclera with watery discharge. No crusting. EOMI, PERRLA. Ears: External ears normal, canals clear. Neck: Supple, no adenopathy; thyroid symmetric, normal size, no bruits. Lungs: Lungs clear to auscultation. No wheezing, rhonchi, rales.. Heart: RRR without murmur, gallop, or rubs. No ectopy. Health Maintenance List LUNG CANCER SCREENING Never done SHINGRIX VACCINE(1 of 2) Never done DTAP,TDAP,TD(1 - Tdap) due on 07/03/2018 BONE DENSITY Never done MAMMOGRAM due on 07/16/2020 PNEUMOCOCCAL: 65+(2 - PCV) due on 04/09/2021 COVID-19 VACCINE(3 - Booster for Moderna series) due on 04/26/2021 ADVANCE DIRECTIVE DISCUSSION Never done INFLUENZA(1) due on 05/18/2022 ANNUAL PCP TEAM CHRONIC DISEASE VISIT due on 11/25/2022 BP CONTROLLED (<130/80) due on 11/25/2022 COLORECTAL CANCER SCREENING due on 03/28/2023 DIABETES SCREEN due on 11/15/2024 LIPID SCREEN due on 11/17/2025 HEPATITIS C SCREENING Completed ASSESSMENT/PLAN: 1. Suspected COVID-19 virus infection - ICD9: V01.79, ICD10: Z20.822 (primary diagnosis) Recommend rest, supportive care, and should isolate until: At least 5 days have passed since symptoms first appeared and At least 24 hours have passed since last fever without the use of fever-reducing medications and Symptoms (e.g., cough, shortness of breath) have improved. Should wear mask for at least 5 days after he ends isolation to prevent spread to others. Red flags for re-assessment reviewed with patient in detail. - 2019 CORONAVIRUS 2. Non-seasonal allergic rhinitis, unspecified trigger - ICD9: 477.8, ICD10: J30.89 Start flonase. Discussed OTC allergic eye drops and antihistamines. - FLUTICASONE PROPIONATE 50 MCG/ACTUATION NASAL SPRAY,SUSPENSION Girish Lemos MD documented in this encounterMercy [facility]07-07-2022 Miscellaneous Notes* Telephone Encounter - Girish Lemos MD - 03/23/2022 9:12 AM EDT Agree. * Telephone Encounter - Rachael Baker RN - 03/23/2022 9:01 AM EDT Protocol recommends see provider in 24 hours. Pt [address] with [address] Lemos today at 1120 am. Pt taking home Covid test right now will call in to change from in person if Covid test is positive. Care plan reviewed with patient. Patient voices understanding. Advised patient that if symptoms get worseto be evaluated in Urgent Care or ER. Reason for Disposition [1] Fever returns after gone for over 24 hours AND [2] symptoms worse or not improved Answer Assessment - Initial Assessment Questions 1. ONSET: Cough began Sunday. 2. SEVERITY: The cough is moderate today, it is worse in the morning and at night evens out throughthe day. 3. SPUTUM: The color of the sputum is yellow/green thick moderate amount. 4. HEMOPTYSIS: Denies. 5. DIFFICULTY BREATHING: - MILD: No SOB at rest, mild SOB with walking, speaks normally in sentences, can lay down, no retractions, pulse < 100. - MODERATE: SOB at rest, SOB with minimal exertion and prefers to sit, cannot lie down flat, speaksin phrases, mild retractions, audible wheezing, pulse 100-120. - SEVERE: Very SOB at rest, speaks in single words, struggling to breathe, sitting hunched forward,retractions, pulse > 120 Pt denies, states she is used to being a little SOB since she had Covid in Jun 2020. 6. FEVER: Fever /. Reports her forehead feels warm, but she doesn't think she has a fever but hasn't checked today. 7. CARDIAC HISTORY: Pt denies any history of heart disease like heart attack, congestive heart failure. Pt reports having high blood pressure. 8. LUNG HISTORY: Pt reports history of lung disease. Pt reports she had pulmonary embolus when she had Covid. Pt denies asthma or emphysema. 9. PE RISK FACTORS: Pt has history of blood clots when she had Covid she had a pulmonary embolus. Pt denies recent major surgery or bedridden . Pt was recently on prolonged travel down to [place]. 10. OTHER SYMPTOMS: Pt reports runny nose, slight fever, nausea, diarrhea, eyes watering/red/blood shot/with pus, fatigue, weak, O2 93% on 1.5 L, slight headache. Pt denies wheezing, chest pain. 11. : Postmenopausal. 12. TRAVEL: Just came back from [place] on Sunday, states no one tested positive down there. Protocols used: COUGH - ACUTE [id number] documented in this encounterMercy Health St. [facility]06-08-2022 Miscellaneous Notes* Telephone Encounter - Chacho Ambriz LPN - 02/22/2022 11:33 AM EDT Spoke with pt and information listed below given. Pt verbalizes understanding. Chacho Ambriz LPN * Telephone Encounter - Jeanette Berrios APRN.CNP - 02/22/2022 8:54 AM EDT She will need to check with her insurance company as see what is covered. Jeanette Berrios APRN.DIA * Telephone Encounter - Bailee Zacarias Pss - 02/22/2022 8:46 AM EDT Patient has been identified by name and date of : Yes Pending Prescriptions Disp Refills POTASSIUM CHLORIDE ER 10 MEQ TABLET,EXTENDED RELEASE 180 tablet 1 Sig: Take two tablets daily ADALGISA: No JOSR-11/25/21 Labs-11/15/21 NOV-none med filled 09/06/21 RX INSTRUCTIONS: Patient would like to know if there is a different type or potassium chloride she could get that wouldn't cost her $10 each time she gets [facility] from [facility]. Patient aware RX escripted to mail away pharmacy. No need to notify patient. Bailee Zacarias Pss documented in this encounterMercy Health St. [facility]03-11-2022 History of Present illness Narrative* Antonia Simms, RT(R) - 11/25/2021 10:50 AM EST Radiology Service Progress Note PATIENT NAME: Betsy Rodrigez DATE OF SERVICE: November 25, 2021 TIME: 11:18 AM PATIENT IDENTITY VERIFICATION COMPLETED USING TWO (2) IDENTIFIERS: Name and Date of confirmedby patient verbally. FALL SCREENING: Has the patient had 2 falls in the last year or 1 fall with injury or currently using an Ambulatory Assistive Device (Walker, Cane, Wheelchair, Crutches, etc.)? No PATIENT GENDER DATA: Female. status: : No status: NO. PATIENT RELEVANT IMPLANT DATA REVIEWED: Not Applicable RADIOLOGY DEPARTMENT: General X-ray: Exam(s) Completed: Chest X-Ray PERIPHERAL IV DATA: Not applicable SIGNED BY: RT Dameon(R) November 25, 2021 11:18 AM documented in [facility] note Author Huan Billy [facility] Note Date/Time February 16, 2025 8:12a [facility] Medical Records Department [address] [place] [address] Pre-Anesthesia Evaluation 02/16/25 0809 MR#: [id number] Acct: [id number] Name: BETSY RODRIGEZ Rep #:[id number] : 1955 69 From: Huan Billy MD PCP: Dr. Fabricio Lemos MD Status :REG SDC Y Race: C Location: [place] [address] ASA Classification* ASA Classification ASA Classification: 3 Assessment & Plan Anesthesia* Anesthesia Assessment Anesthesia Assessment: Discussed sedation and/or anesthesia options, risks, benefits, and alternatives with patient/parents/legal guardian/POA. Questions invited. The patient/parents/legal guardian/POA seems to understand and agrees to proceedwith anesthesia plan. Reviewed the physical assessment, medical history, allergy history and patient home medications list prior to surgery/procedure/anesthetic and documented any changes. Performed airway and anesthesia risk assessments. Anesthesia Type Anesthesia Type: MAC History Source History Obtained from:: Patient and Chart Anesthesia Focused Assessment* Temperature: 98.6 F Pulse Rate: 80 Blood Pressure: 126/68 Respiratory Rate: 18 Pulse Ox: 96 Oxygen Delivery Method: Room Air Airway Assessment Mouth opens: >3 cm Mallampati Score: II Teeth Condition: Intact, Dentures, Lower (original), Missing (bottom) and Upper (detures) Neck Range of motion (ROM): Full ROM Focused Labs Anesthesia Preop lab: CBC WBC 5.7 K/mm3 (4.4-11.0) 02/03/25 08:05 02/03/25 RBC 3.54 M/mm3 (4.2-5.4) L 02/03/25 08:05 02/03/25 Hgb 10.7 g/dL (12.0-15.0) L 02/03/25 08:05 5 Hct 32.6 % (37-47) L 02/03/25 08:05 02/03/25 Plt Count 356 K/mm3 (150-450) 02/03/25 08:05 02/03/25 CHEMISTRY Potassium 4.0 mmol/L (3.3-5.1) 02/03/25 08:05 02/03/25 Sodium 141 mmol/L (133-145) 02/03/25 08:05 02/03/25 Magnesium 1.5 mg/dL (1.5-2.2) 02/03/25 08:05 02/03/25 Phosphorus 4.0 mg/dL (2.7-4.5) 02/03/25 08:05 02/03/25 BUN 7 mg/dL (4-19) 02/03/25 08:05 02/03/25 Creatinine 0.82 mg/dL (0.70-1.20) 02/03/25 08:05 02/03/25 Glucose 108 mg/dL (70-99) H 02/03/25 08:05 02/03/25 POC Glucose 75 mg/dL (74-106) 01/10/25 05:20 01/10/25 TSH 3.490 uIU/mL (0.300-4.200) 02/03/25 08:05 01/16 COAG PT 14.2 SECONDS (11.7-14.9) 11/12/24 10:03 Pre-Assessment Diagnosis/Proposed Procedure Planned Operative Procedure(s): LEFT LUMBAR TRANSFORAMINAL EPIDURAL L4-5 S1 UNDER FLUOROSCOPY Anesthesia History 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 When Was Last Pacemaker Check QUESTION #4 FULL TEXT: You/Your Family Experience fever (hyperthermia) with Anesthesia Last Oral Intake Last Oral intake: Last Oral Intake NPO since 21:00 02/16/25 07:38 Meds taken in AM with sips of water? 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 Female Yes 02/11/25 15:02 HX of Motion Sickness No 02/11/25 15:02 HX of N/V After Surgery No 02/11/25 15:02 Non-Smoker Yes 02/11/25 15:02 Duration of Surgery greater No 02/11/25 15:02 than 60 minutes Number of Risk Factors 2 02/11/25 15:02 PONV Score Moderate Risk 02/11/25 15:02 Height & Weight Height & Weight: Anesthesia: Height & Weight Height 5 ft 3 in 02/16/25 07:38 Weight: 66 kg 02/16/25 07:38 Body Mass Index (BMI) 25.7 02/16/25 07:38 Respiratory Assessment Respiratory Assessment - grounds worker: Respiratory Tract Infection Hx - grounds worker Hx Respiratory Tract Infection No 02/11/25 15:02 STOP Sleep Apnea STOP Sleep Apnea - grounds worker: STOP Sleep Apnea - grounds worker Hx Hypertension Yes: CONTROLLED WITH MED 02/11/25 15:02 Hx Sleep Apnea Yes 02/11/25 15:02 CPAP Yes: NONCOMPLIANT 02/11/25 15:02 BIPAP No 02/11/25 15:02 Do you snore loudly (louder than talking or can be heard Do you often feel tired/ fatigued/ sleepy during daytime? Has anyone observed you stop breathing during sleep? STOP Results Positive 02/11/25 15:02 QUESTION #5 FULL TEXT : Do you snore loudly (louder than talking or can be heard through closed doors)? 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 Specify any problems Hx of Preganancy in last 3 No 02/11/25 15:02 Months Nurse Filling Out Transfusion DSCHRIBER 02/11/25 15:02 & Questions: Date: 02/11/25 02/11/25 15:02 Time: 15:07 02/11/25 15:02 Patient unable to answer at this time (ie. confused, unrespo /Reproduction History /Reproductive History - grounds worker: /Reproductive Hx- grounds worker Hx Now No 02/11/25 15:02 Gestational Age (in weeks): EDC: Hx Hx Para Hx Section SAB No 02/11/25 15:02 Active Medications Active Medications: Current Medications Generic Name Dose Route Start Last Admin Trade Name Freq PRN Reason Stop Dose Admin Lactated Ringer's 1,000 mls @ 15 mls/hr 02/16/25 07:15 02/16/25 07:42 IV 15 mls/hr .Q48H DIAZ Administration PFSH Medical History (Updated 02/11/25 @ 15:16 by Pricila Pleitez) Cancer Difficulty swallowing Hypothyroidism GERD (gastroesophageal reflux disease) Chest pain Encounter for chemotherapy management Internal hemorrhoids Current use of steroid medication Ambulates with cane Back pain On home oxygen therapy High grade neuroendocrine carcinoma of lung Jaundice Regional lymph node metastasis present Metastasis to bone Small cell lung cancer Loss of hearing Wears glasses Wears dentures Post-menopausal Thyroid disease Arthritis High cholesterol DVT (deep venous thrombosis) Injury of back Migraine headache Syncope History of hiatal hernia History of ulceration History of diverticulitis Former smoker Asthma CPAP (continuous positive airway pressure) dependence Leg cramps Shortness of breath on exertion History of pain when walking Hypertension Heart murmur History of echocardiogram History of stress test Cardiology follow-up encounter Bradycardia Chronic respiratory failure with hypoxia Smoking greater than 40 pack years Pulmonary hypertension Bronchiectasis History of staph infection Hypoxia Home Medications ?Medication ?Instructions ?Recorded ?Last Taken ?Type levothyroxine 25 mcg tablet 25 mcg PO DAILY thyroid 02/16/25 05:30 History gabapentin 400 mg capsule 400 mg PO TID nerve pain 02/16/25 05:30 History Disability Placard #1 ea 09/15/20 Unknown Rx potassium citrate 10 mEq (1,080 20 meq PO DAILY potass ium 01/26/22 12/11/24 History mg) tablet,extended release albuterol sulfate 90 mcg/actuation 2 puff inhalation Q 4H PRN 06/13/23 Unknown History aerosol inhaler shortness of breath or wheez ing fluticasone propionate 50 1 spray intranasal DAILY PRN nasal 05/28/24 Unknown History mcg/actuation nasal congestion spray,suspension (Flonase Allergy Relief) losartan 25 mg tablet 25 mg PO DAILY blood pressur e 11/12/24 02/16/25 05:30 History ondansetron HCl 8 mg tablet 8 mg PO Q8H PRN nausea and vomiting 11/24/24 01/09/25 History docusate sodium 100 mg capsule 100 mg PO BID PRN const ipation 12/11/24 Unknown History omeprazole 40 mg capsule,delayed 40 mg PO BID gerd 02/16/25 05:30 History release lidocaine-prilocaine 2.5 %-2.5 % 1 applic topical ONCE PRN port 12/15/24 Unknown Rx topical cream access 30 days #30 grams prochlorperazine maleate 10 mg 10 mg PO Q6H PRN nausea and 12/15/24 01/07/25 Rx tablet vomiting #30 tabs mirtazapine 15 mg tablet 15 mg PO QHS sleep #30 tabs 12/29/24 01/08/25 Rx oxycodone 10 mg tablet 10 mg PO Q4H PRN pain 02/16/25 05:30 History furosemide 20 mg tablet 20 mg PO DAILY PRN leg 01/10 Unknown Rx swelling/SOB #30 tabs Allergy/AdvReac Type Severity Reaction Status Date / Time MEAGAN Inhibitors Allergy Rash Verified 02/16/25 07:36 codeine Allergy Vomiting Verified 02/16/25 07:36 walnut Allergy Food Verified 02/16/25 07:36 Allergy prednisone AdvReac Other Verified 02/16/25 07:36 Yumcygi-AVL-ZrJ Reductase AdvReac cramps Verified 02/16/25 07:36 Inhibitor (Nxofhfv-Cwd-Cvy Reductase Inhibitor) Family History Mother Cancer Hx Lung CA. Father Cancer Hx Lung CA. Surgical History (Updated 02/11/25 @ 15:14 by Pricila Pleitez) History of vascular access device Hx of right cataract extraction Hx of left cataract extraction Hx of breast reconstruction Hx of foot surgery Hx of surgical amputation of finger Hx of elbow surgery History of carpal tunnel surgery Hx of vein stripping History of cholecystectomy History of back surgery History of eye surgery History of breast biopsy History of tubal ligation History of History of appendectomy History of tonsillectomy Social History household members: spouse Smoking Status: Former smoker quit date: 08/17/16 Tobacco: How many years used: 45 alcohol intake: never Review of Systems (Anesthesia) ROS Narrative System reviewed and no additional complaints, except as documented. Physical Exam Const alert, oriented x3 and average body habitus Resp normal respiratory effort, normal air movement and clear to auscultation bilaterally Cardio regular rate, regular rhythm, no murmurs and diaphoretic 02/16/25 0812 <Electronically signed by Huan Billy MD> Date _ Huan Billy MD Cosigner Signature: Date CC: ~ Signed [facility] Work Phone: Consult note Author Daniel Sevilla [facility] Note Date/Time February 16, 2025 8:55a [facility] Medical Records Department [address] [place] [address] Anesthesia Postop Eval I 02/16/25 0854 MR#: [id number] Acct: [id number] Name: BETSY RODRIGEZ Rep #:[id number] : 1955 69 From: Daniel Sevilla PCP: Dr. Fabricio Lemos MD Status :REG SD Y Race: C Location: [place] [address] Anesthesia: Postop Eval I Current Vital Signs Temperature: 97.2 F Pulse Rate: 70 Blood Pressure: 100/55 Respiratory Rate: 16 Pulse Ox: 96 Oxygen Delivery Method: Room Air Assessment Airway patent: Yes Spontaneous unlabored respirations: Yes Mental status: Awake and Calm nausea: No Vomiting: No Anesthesia Complication: No Fluid Hydration Crystalloid volume administer (ml): 200 Total IV fluid infused: 200 Progress Note Anesthesia document: Postop Eval 1 completed: Yes 02/16/25854 <Electronically signed by Daniel Sevilla > Date _ Daniel Mendoza Signature: Date CC: ~ Signed [facility] Work Phone: Consult note Author Huan Billy [facility] Note Date/Time February 16, 2025 9:34a [facility] Medical Records Department [address] [place] [address] Anesthesia Postop Eval II 02/16/25 0901 MR#: [id number] Acct: [id number] Name: BETSY RODRIGEZ Rep #:[id number] 00 : 1955 69 From: Huan Billy MD PCP: Dr. Fabricio Lemos MD Status :REG SDC Y Race: C Location: [place] [id number] Anesthesia Postop Eval I Sum Postop Eval Completion status Anesthesia document: Postop Eval 1 completed: Yes Anesthesia Postop Eval I Summary Anesthesia Postop Eval I Summary: Anesthesia Postop Eval I: Assessment Summary Airway patent Yes 02/16/25 08:55 [email or web address] Spontaneous unlabored Yes 02/16/25 08:55 [email or web address] respirations Mental status Awake,Calm 02/16/25 08:55 [email or web address] nausea No 02/16/25 08:55 [email or web address] Vomiting No 02/16/25 08:55 [email or web address] Anesthesia Postop Eval I: Fluid Summary Crystalloid volume administer 200 02/16/25 08:55 [email or web address] (ml) Colloids volume administered ( ml) Blood Product volume administered (ml) Total IV fluid infused 200 02/16/25 08:55 [email or web address] Anesthesia Postop Eval I: Summary Notes Anesthesia Complication No 02/16/25 08:55 [email or web address] Anesthesia Complication Comment: Post-operative progress note Anesthesia: Postop Eval II Evaluation Mental status: Awake Pain Level: 0 nausea: No Vomiting: No Complications Anesthesia Complication: No 02/16/25 0901 <Electronically signed by Huan Billy MD> Date _ Huan Billy MD Cosigner Signature: Date CC: ~ Signed [facility] Work Phone: Discharge summary Author Jassi Borden [facility] Note Date/Time January 10, 2025 2:2 8pm [facility] Medical Records Department [address] [place] [address] Instructions for Home/Discharge Instructions 01/10/25 1425 MR#: [id number] Acct: [id number] Name: BETSY RODRIGEZ Rep #:[id number] : 1955 69 From: Jassi Schneider PCP: Dr. Fabricio Lemos MD Status :ADM FARIBA Discharge Instructions Diet Discharge Diet: No restrictions DC O2, CPAP, BIPAP needs Home O2 Discharge instructions: No Dressing / Incision Discharge Activity: Return to Normal Activity Weight Bearing Status: Weight bearing as tolerated Dressing / Incision Call your doctor if you observe: Fever of 101 or Higher, Coldness, Increased Pain, Numbness or Tingling, Change in Color, Inability to urinate, Inability to have a bowel movement, Shortness of breath, Dizziness, Fainting spells, Swellingin the ankles, Chest pain, Prolonged hiccupping, Increased palpitations (irregular heartbeat) and Calf discomfort Follow Up Care When: IN 2 WEEKS Test Results: Test results from this visit will be discussed in further detail at your follow- up appointment, if applicable. Discharge Plan Admission Admit Date/Time: 01/09/25 19:31 Primary Reason for Your Visit: Atypical chest pain, ACS ruled out. Probably musculoskeletal Attending Provider: Jassi Borden Primary Care Provider: Fabricio Lemos Consulting Providers: Estrella Cabezas Instructions Additional Instructions / Restrictions: Recommended CBC with differential after 1 week to see normalization of leukocytosis. Discharge Orders/Prescriptions Prescriptions: Continued (DME) Disability Placard See Rx Instructions .Route .MEDSUPPLY Qty: 1 0RF Rx Instructions: Expires 09/09/2025 albuterol sulfate 90 mcg/actuation HFA aerosol inhaler 2 puff inhalation Q4H PRN (Reason: shortness of breath or wheezing) ondansetron HCl 8 mg tablet 8 mg PO Q8H PRN (Reason: nausea and vomiting) mirtazapine 15 mg tablet 15 mg PO QHS Qty: 30 3RF levothyroxine 25 MCG tablet 25 mcg PO DAILY gabapentin 400 MG capsule 400 mg PO TID potassium citrate 10 mEq (1,080 mg) tablet extended release 20 meq PO DAILY Patient Comments: pt unsure if she takes this medication fluticasone propionate [Flonase Allergy Relief] 50 mcg/actuation spray,suspension 1 spray intranasal DAILY PRN (Reason: nasal congestion) Rx Instructions: administer into each nostril cholecalciferol (vitamin D3) [Vitamin D3] 25 mcg (1,000 unit) capsule 25 mcg PO DAILY losartan 25 mg tablet 25 mg PO DAILY omeprazole 40 MG capsule,delayed release(DR/EC) 40 mg PO BID docusate sodium 100 mg Capsule 100 mg PO BID PRN (Reason: constipation) Rx Instructions: Hold for diarrhea oxycodone 10 mg tablet 10 mg PO Q4H PRN (Reason: pain) calcium carbonate [Calcium 600] 600 mg calcium (1,500 mg) tablet 600 mg PO DAILY lidocaine-prilocaine 2.5-2.5 % cream 1 applic topical ONCE PRN (Reason: port access) 30 Days Qty: 30 2RF prochlorperazine maleate 10 mg tablet 10 mg PO Q6H PRN (Reason: nausea and vomiting) Qty: 30 2RF Referrals / Follow Up: Fabricio Lemos MD [Primary Care Provider] - Sherice Fernandez MD [Med Staff - Active Staff] - Within 1 Month Disposition Disposition (needs filled in before D/C Order can be placed): Home, Self Care 01/10/251427<Electronically signed by Jassi Borden MD>Jassi Borden MD CC: Dr. Fabricio Lemos MD; Dr. Estrella Cabezas MD ~ Signed [facility] Work Phone: Discharge summary Author Jassi Borden [facility] Note Date/Time January 10, 2025 2:3 9pm [facility] Medical Records Department [address] [place] [address] Discharge Summary 01/10/251427 MR#: [id number] Acct: [id number] Name: BTESY RODRIGEZ Marta Rep #:[id number] 31 : 1955 69 From: Jassi Schneider PCP: Dr. Fabricio Lemos MD Status :ADM FARIBA Location: [place] [address] Providers Date of Admission: 01/09/25 Date of Discharge: 01/10/25 Primary Care Physician: Dr. Fabricio Lemos MD Reason For Visit: EPISODE OF CHEST PAIN Diagnosis Discharge Diagnosis (1) Chest pain: Status: Acute Code(s): R07.9 - Chest pain, unspecified Plan 69-year-old female was admitted with sternal chest pain started while driving. History of lung cancer, received chemotherapy yesterday and Neupogen patient states chest pain is now gone. Complain of nausea and shortness of breath. On 2 L of home oxygen as needed # Atypical chest pain, exact etiology unclear: Patient is being admitted in PCU. Chest x-ray image is reviewed and shows hilar enlarged, interstitial and patchyairspace disease - Initial troponin 12 with a repeat of 19 and third on 13. proBNP 3119. ACS ruled out - Chest x-ray did query congestion and edema - Lasix was given and patient currently euvolemic. 2D echo was done on 01/11/2020 Interpretation Summary The LV systolic function is normal. EF is 65 %. The global longitudinal strain = -24.6 % (normal). Currently patient is euvolemic. Prescription for furosemide 20 mg daily as needed for leg swelling/SOB/dyspnea given. Follow-up with PCP 2D echo in March 2020 shows EF 65% with no evidence of diastolic dysfunction. NoRWMA. No Doppler evidence for ASD. # mild hyperglycemia - Patient's BMP glucose only 64. Repleted with 116, 75. Resolved # MildProbably due to hypoxia mild pulmonary edema due to acute on chronic HFpEF -Patient has a history of using oxygen as needed, did drop to 88% #leukocytosis: Admitting physician discussed with Dr. Fernandez regarding patient's elevated white blood cell count. Most likely due to steroid which causes demargination. Patient had Neupogen but usually continues leukocytosis after 3 to 4 days # Suspected lung cancer with metastasis -Follows Dr. Fernandez on outpatient basis -Her oncologist was contacted by ED physician Follow-up Dr. Fernandez #GERD -Continue PPI #Hypertension - Blood pressure 112/49 in the ED. On low-dose losartan #ARMANDO -Continue home CPAP #Hypothyroidism -Continue Synthroid #DVT ppx: Lovenox subcu Discharge medication reconciliation done. Discharge follow-up instructions completed. Discharge process discussed with the patient and all questions wereanswered to patient's satisfaction. Follow with PCP in 1 to 2 weeks Total time spent, exact 35 minutes on discharge meds reconciliation, examination, coordination of care with nurses and ancillary staff, review of imaging and blood test and discussion with the patient on follow-up instructions. Medications at Discharge Home Medications levothyroxine 25 mcg tablet 25 mcg PO DAILY thyroid 11/03/17 gabapentin 400 mg capsule 400 mg PO TID nerve pain 07/16/20 Disability Placard #1 ea 09/15/20 potassium citrate 10 mEq (1,080 mg) tablet,extended release 20 meq PO DAILY potassium 01/26/22 albuterol sulfate 90 mcg/actuation aerosol inhaler 2 puff inhalation Q4H PRN shortness of breath or wheezing 06/13/23 fluticasone propionate 50 mcg/actuation nasal spray,suspension (Flonase Allergy Relief) 1 spray intranasal DAILY PRN nasal congestion 05/28/24 cholecalciferol (vitamin D3) 25 mcg (1,000 unit) capsule (Vitamin D3) 25 mcg PO DAILY vitamin 11/12/24 losartan 25 mg tablet 25 mg PO DAILY blood pressure 11/12/24 ondansetron HCl 8 mg tablet 8 mg PO Q8H PRN nausea and vomiting 11/24/24 docusate sodium 100 mg capsule 100 mg PO BID PRN constipation 12/11/24 omeprazole 40 mg capsule,delayed release 40 mg PO BID gerd 12/11/24 lidocaine-prilocaine 2.5 %-2.5 % topical cream 1 applic topical ONCE PRN port access 30 days #30 grams 12/15/24 prochlorperazine maleate 10 mg tablet 10 mg PO Q6H PRN nausea and vomiting #30 tabs 12/15/24 mirtazapine 15 mg tablet 15 mg PO QHS sleep #30 tabs 12/29/24 calcium carbonate (Calcium 600) 600 mg PO DAILY suppliment 01/09/25 oxycodone 10 mg tablet 10 mg PO Q4H PRN pain 01/09/25 furosemide 20 mg tablet 20 mg PO DAILY PRN leg swelling/SOB #30 tabs 01/10/25 Physical Exam Narrative Seen and examined. The chest pain lasted for about 5 minutes and has resolved. No acute issues after that. Physical exam Physical exam: General: Alert, Oriented x3, Cooperative HEENT: Atraumatic, PERRLA, EOMI, Normocephalic Oral: Oral mucosa moist no Gingival or Mucosal Lesions/ Ulcerations Neck: Supple, No JVD, Negative Carotid Bruits Chest wall/Lungs: Air entry diminished in bilateral lung bases. No crepitation/rhonchi Cardiovascular: Regular rate, Regular Rhythm, Normal S1, Normal S2, systolic murmur lungs Abdomen: Bowel Sounds Present, Soft, Non Tender, Non-Distended : No dysuria. No renal angle tenderness. No suprapubic tenderness. Extremities: No edema, Capillary Refill Less than 3 Seconds Skin: No rashes, No breakdown Musculoskeletal: No Tenderness to Palpation of Joints or Extremities Neurological: Cranial nerves II-XII grossly intact, DTR 2+/4. No acute focal neurological deficit. Psych/Mental Status: Normal Affect, Appropriate. Medical Records Data Medical Nutrition Assessment Dietitian: Malnutrition Criteria Met Start: 01/10/25 14:09 Freq: Status: Active Protocol: Document 01/10/25 14:09 RMA (Rec: 01/10/25 14:09 RMA [id number]) Nutrition Malnutrition Evidence of Yes Malnutrition Exists Malnutrition (severe Chronic ): Evidenced By Suboptimal Energy Intake (Severe),Weight Loss (Severe) Clinical Problem Chronic Disease or Condition Related Malnutrition Etiology severe protein-calorie malnutrition in the context of chronic disease related to inadequate energy intakeand increased energy expenditure Signs/Symptoms as evidenced by ~7% unintentional weight loss x 2 months and PO meeting less than 75% estimated nutrition needs x 2 months Status Active Problem Recommendation Dietitian Will liberalize diet to Regular to help optimize oral Recommendations/ intake given signs/symptoms of malnutrition. Changes Will add 120mL ensure plus HP 4 times per day w/ medpass. Weight / BMI Weight Weight: 145 lb 4.554 oz Body Mass Index (BMI) 25.7 ABG / Lab / Microbiology Data 01/10/25 05:20 01/10/25 05:20 Laboratory: Laboratory Results - last 24 hr 01/09/25 15:50: WBC 18.3 H, RBC 3.83 L, Hgb 11.5 L, Hct 34.6 L, MCV 90.3, MCH 30.0, MCHC 33.2, RDW Std Deviation 60.6 H, RDW Coeff of Brittanie 18.8 H, Plt Count 442, MPV 9.9, Immature Gran % (Auto) 1.800 H, Neut % (Auto) 93.2 H, Lymph % (Auto) 4.7 L, Roosevelt % (Auto) 0.2, Eos % (Auto) 0.0, Baso % (Auto) 0.1, Absolute Neuts (auto) 17.1 H, Absolute Lymphs (auto) 0.86, Nucleated RBC % 0, Platelet Estimate SLT INC, Sodium 141, Potassium 3.6, Chloride 107, Carbon Dioxide 20.1 L, Anion Gap 14, BUN 17, Creatinine 0.67 L, Estim Creat Clear Calc 61.24, Est GFR(MDRD) Non-Af 94, BUN/Creatinine Ratio 25.5 H, Glucose 64 L, Calcium 8.8, Troponin T High Sens 12 01/09/25 17:58: Troponin T Hi Sens 2 Hr 19 H, NT pro BNP II 3119 H 01/09/25 19:55: Troponin T Hi Sens 4Hr 13 01/10/25 01:21: POC Glucose 116 H 01/10/25 05:20: WBC 46.9 H*, RBC 3.47 L, Hgb 10.4 L, Hct 30.9 L, MCV 89.0, MCH 30.0, MCHC 33.7, RDW Std Deviation 59.4 H, RDW Coeff of Brittanie 18.6 H, Plt Count 419, MPV 9.8, Neut % (Auto) Not Reportable, Absolute Neuts (auto) 43.6 H, Absolute Lymphs (auto) 1.88, Total Counted 100, Neutrophils % (Manual) 92 H, Band Neutrophils % 1, Lymphocytes % (Manual) 4 L, Monocytes % (Manual) 1, Metamyelocytes % 2 H, Diff Path Review May foll, Platelet Estimate A, Sodium 142,Potassium 3.9, Chloride 104, Carbon Dioxide 26.7, Anion Gap 11, BUN 19, Creatinine 0.87, Estim Creat Clear Calc 54.90, Est GFR (MDRD) Non-Af 72, BUN/Creatinine Ratio 21.6 H, Glucose 77, Calcium 8.5, POC Glucose 75 Microbiology: Microbiology 01/09/25 05:20 Nasal Secretion SARS-CoV-2 Antigen (Rapid) - Final 01/09/25 20:30 Mucosa - Nasopharyngeal Respiratory Panel (PCR) - Final Radiography Diagnostic Testing: Radiology Impression Chest X-Ray 01/09/25 16:09 IMPRESSION: Interstitial and patchy airspace disease, may relate to congestion and edema. Reading Location: [id number] Echocardiogram 01/09/25 20:22 Interpretation Summary The LV systolic function is normal. EF is 65 %. The global longitudinal strain = -24.6 % (normal). Ordering Physician: Estrella Cabezas Referring Physician: Estrella Cabezas Performed By: Sesar Ferrera RCS D/C Instructions Discharge Diet: No restrictions Weight Bearing Status: Weight bearing as tolerated Call your doctor if you observe: Fever of 101 or Higher, Coldness, Increased Pain, Numbness or Tingling, Change in Color, Inability to urinate, Inability to have a bowel movement, Shortness of breath, Dizziness, Fainting spells, Swellingin the ankles, Chest pain, Prolonged hiccupping, Increased palpitations (irregular heartbeat) and Calf discomfort DC O2, CPAP, BIPAP Needs Home O2 Discharge instructions: No When: IN 2 WEEKS Meaningful Use Info Meaningful Use Meaningful Use Diagnoses (Choose all that apply): CHF CHF MEAGAN/ARB ordered at discharge?: Yes Documented LVEF (%): 55 Ischemic Stroke Statin Dosing Therapy Reference: STATIN DOSE THERAPY REFERENCE: * Patients > 75 years receive moderate or high dose statin therapy. * Patients 75 years or YOUNGER should receive HIGH intensity statin dose unless contraindicated. You will be required to document reason for non-treatment if statin daily dose does not meet guidelines. HIGH DOSE STATIN THERAPY DAILY Atorvastatin > than or = to 40 mg Rosuvastatin > than or = to 20 mg Amlodipine + Atorvastatin > than or = to 2.5/40 mg Ezetimibe + Simvastatin 10/80 mg Simvastatin 80mg Discharge Plan Admission Admit Date/Time: 01/09/25 19:31 Primary Reason for Your Visit: Atypical chest pain, ACS ruled out. Probably musculoskeletal Attending Provider: Jassi Borden Primary Care Provider: Fabricio Lemos Consulting Providers: Estrella Cabezas Instructions Additional Instructions / Restrictions: Recommended CBC with differential after 1 week to see normalization of leukocytosis. Discharge Orders/Prescriptions Prescriptions: New furosemide 20 mg tablet 20 mg PO DAILY PRN (Reason: leg swelling/SOB) Qty: 30 0RF Continued (DME) Disability Placard See Rx Instructions .Route .MEDSUPPLY Qty: 1 0RF Rx Instructions: Expires 09/09/2025 albuterol sulfate 90 mcg/actuation HFA aerosol inhaler 2 puff inhalation Q4H PRN (Reason: shortness of breath or wheezing) ondansetron HCl 8 mg tablet 8 mg PO Q8H PRN (Reason: nausea and vomiting) mirtazapine 15 mg tablet 15 mg PO QHS Qty: 30 3RF levothyroxine 25 MCG tablet 25 mcg PO DAILY gabapentin 400 MG capsule 400 mg PO TID potassium citrate 10 mEq (1,080 mg) tablet extended release 20 meq PO DAILY Patient Comments: pt unsure if she takes this medication fluticasone propionate [Flonase Allergy Relief] 50 mcg/actuation spray,suspension 1 spray intranasal DAILY PRN (Reason: nasal congestion) Rx Instructions: administer into each nostril cholecalciferol (vitamin D3) [Vitamin D3] 25 mcg (1,000 unit) capsule 25 mcg PO DAILY losartan 25 mg tablet 25 mg PO DAILY omeprazole 40 MG capsule,delayed release(DR/EC) 40 mg PO BID docusate sodium 100 mg Capsule 100 mg PO BID PRN (Reason: constipation) Rx Instructions: Hold for diarrhea oxycodone 10 mg tablet 10 mg PO Q4H PRN (Reason: pain) calcium carbonate [Calcium 600] 600 mg calcium (1,500 mg) tablet 600 mg PO DAILY lidocaine-prilocaine 2.5-2.5 % cream 1 applic topical ONCE PRN (Reason: port access) 30 Days Qty: 30 2RF prochlorperazine maleate 10 mg tablet 10 mg PO Q6H PRN (Reason: nausea and vomiting) Qty: 30 2RF Referrals / Follow Up: Fabricio Lemos MD [Primary Care Provider] - Sherice Fernandez MD [Med Staff - Active Staff] - Within 1 Month Disposition Disposition (needs filled in before D/C Order can be placed): Home, Self Care Charges/Coding Visit Charges Inpatient E&M: 10549 Disch Hosp >30min 01/10/25 1431 <Electronically signed by Jassi Borden MD> Cosigner Signature (if applicable): CC: Dr. Fabricio Lemos MD; Dr. Jassi Borden MD~ Signed [facility] Work Phone: Evaluation note* Diagnosis Onset Date Resolution Status Respiratory insufficiency ac natalie Smoking greater than 40 pack years [facility] Work Phone: evaluation note* Diagnosis Suspected COVID-19 virus infection- Primary Non-seasonal allergic rhinitis, unspecified trigger documented in this encounter [facility] note* Diagnosis Gross hematuria- Primary Acute vaginitis Vaginitis and vulvovaginitis, unspecified Vulvar irritation Other specified noninflammatory disorder of vulva and perineum documented in this encounter [facility] note* Diagnosis Acquired hypothyroidism Unspecified hypothyroidism Essential hypertension Unspecified essential hypertension documented in this encounter [facility] note* Diagnosis Encounter for screening mammogram for breast cancer documented in this encounter [facility] note* Diagnosis Essential hypertension- Primary Unspecified essential hypertension Encounter for immunization Need for other specified prophylactic vaccination against single bacterial disease Prediabetes Other abnormal glucose Hyperlipidemia, unspecified hyperlipidemia type Acquired hypothyroidism Unspecified hypothyroidism Ringworm of body Dermatophytosis of the body Screening for osteoporosis Special screening for osteoporosis Gastroesophageal reflux disease without esophagitis Esophageal reflux Dyspareunia in female Abnormal vaginal bleeding in postmenopausal patient documented in this encounter [facility] note* Diagnosis Ringworm of body Dermatophytosis of the body Acquired hypothyroidism Unspecified hypothyroidism Essential hypertension Unspecified essential hypertension documented in this encounter [facility] note* Diagnosis Onset Date Resolution Status Influenza acute [facility] Work Phone: Evaluation note* Diagnosis Skin tag- Primary Unspecified hypertrophic and atrophic condition of skin S/P cryotherapy of skin lesion documented in this encounter [facility] note* Diagnosis Onset Date Resolution Status Bronchiectasis acute Smoking greater than 40 pack years [facility] Work Phone: Evaluation note* Diagnosis Hammertoe of left foot- Primary Pain in toe of left foot Pain in limb Other acute pulmonary embolism, unspecified whether acute cor pulmonale present (HCC) documented in this encounter [facility] note* Diagnosis Essential hypertension- Primary Unspecified essential hypertension Prediabetes Other abnormal glucose Acquired hypothyroidism Unspecified hypothyroidism Hyperlipidemia, unspecified hyperlipidemia type Bradycardia Other specified cardiac dysrhythmias First degree AV block First degree atrioventricular block Stage 3 chronic kidney disease, unspecified whether stage 3a or 3b CKD (HCC) documented in this encounter [facility] note* Diagnosis Primary hypertension- Primary Unspecified essential hypertension Bradycardia Other specified cardiac dysrhythmias Skin eruption Rash and other nonspecific skin eruption documented in this encounter [facility] note* Diagnosis Acquired hypothyroidism Unspecified hypothyroidism Essential hypertension Unspecified essential hypertension documented in this encounter [facility] note* Diagnosis Screening for colon cancer- Primary Special screening for malignant neoplasms, colon documented in this encounter [facility] note* Diagnosis Onset Date Resolution Status Bronchiectasis acute COVID-19 acute Pulmonary fibrosis acute Pulmonary hypertension acute Smoking greater than 40 pack years [facility] Work Phone: Evaluation note* Diagnosis Essential hypertension- Primary Unspecified essential hypertension Encounter for immunization Need for other specified prophylactic vaccination against single bacterial disease Prediabetes Other abnormal glucose Acquired hypothyroidism Unspecified hypothyroidism Stage 3 chronic kidney disease, unspecified whether stage 3a or 3b CKD (HCC) First degree AV block First degree atrioventricular block documented in this encounter [facility] note* Diagnosis Pain Generalized pain documented in this encounter [facility] note* Diagnosis Screening for osteoporosis Special screening for osteoporosis documented in this encounter [facility] note* Diagnosis Encounter for screening mammogram for breast cancer documented in this encounter [facility] note* Diagnosis Acquired hypothyroidism Unspecified hypothyroidism Essential hypertension Unspecified essential hypertension documented in this encounter [facility] note* Diagnosis Essential hypertension- Primary Unspecified essential hypertension Non-seasonal allergic rhinitis, unspecified trigger Acquired hypothyroidism Unspecified hypothyroidism Hyperlipidemia, unspecified hyperlipidemia type Stage 3 chronic kidney disease, unspecified whether stage 3a or 3b CKD (HCC) Pulmonary hypertension (HCC) Other chronic pulmonary heart diseases Muscle cramps Cramp of limb documented in this encounter [facility] noteNo assessment information availableWAult[facility] Work Phone: Evaluation note* Diagnosis Essential hypertension Unspecified essential hypertension documented in this encounter [facility] note* Diagnosis Fever, unspecified fever cause Diarrhea, unspecified type Nausea Nausea alone Cough documented in this encounter [facility] note* Diagnosis Pneumonia due to infectious organism, unspecified laterality, unspecified part of lung documented in this encounter [facility] note* Diagnosis Encounter for screening mammogram for breast cancer documented in this encounter [facility] note* Diagnosis Acquired hypothyroidism Unspecified hypothyroidism documented in this encounter [facility] note* Diagnosis Essential hypertension- Primary Unspecified essential hypertension Non-seasonal allergic rhinitis, unspecified trigger Encounter for immunization Need for other specified prophylactic vaccination against single bacterial disease Hyperlipidemia, unspecified hyperlipidemia type Prediabetes Other abnormal glucose Stage 3 chronic kidney disease, unspecified whether stage 3a or 3b CKD (HCC) Pulmonary hypertension (HCC) Other chronic pulmonary heart diseases First degree AV block First degree atrioventricular block Acquired hypothyroidism Unspecified hypothyroidism documented in this encounter [facility] note* Diagnosis Essential hypertension Unspecified essential hypertension documented in this encounter [facility] note* Diagnosis Primary hypertension- Primary Unspecified essential hypertension documented in this encounter [facility] note* Diagnosis Generalized abdominal pain- Primary Abdominal pain, generalized Diarrhea, unspecified type Nausea Nausea alone Generalized abdominal pain Abdominal pain, generalized Diarrhea, unspecified type Nausea Nausea alone documented in this encounter [facility] note* Diagnosis Generalized abdominal pain Abdominal pain, generalized Diarrhea, unspecified type Nausea Nausea alone documented in this encounter [facility] note* Diagnosis Liver masses- Primary Unspecified disorder of liver RUQ abdominal pain Abdominal pain, right upper quadrant Nausea and vomiting, unspecified vomiting type Diarrhea, unspecified type documented in this encounter [facility] note* Diagnosis Abnormal MRI, liver- Primary Nonspecific (abnormal) findings on radiological and other examination of biliary tract documented in this encounter [facility] note* Diagnosis Liver masses Unspecified disorder of liver documented in this encounter [facility] Diagnosis Liver masses Unspecified disorder of liver documented in this encounter [facility] note* Diagnosis Generalized abdominal pain- Primary Abdominal pain, generalized Weight loss Loss of weight Liver masses Unspecified disorder of liver Lung mass Swelling, mass, or lump in chest Abnormal MRI, liver Nonspecific (abnormal) findings on radiological and other examination of biliary tract Nausea and vomiting, unspecified vomiting type Diarrhea, unspecified type Dehydration BRBPR (bright red blood per rectum) Hemorrhage of rectum and anus documented in this encounter [facility] note* Diagnosis Chest pain, unspecified type- Primary Small cell carcinoma of lung, unspecified laterality, unspecified part of lung (HCC) 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 Diagnosis Viral URI with cough- Primary Acute upper respiratory infections of unspecified site Immunocompromised state (HCC) Unspecified immunity deficiency Viral URI with cough Acute upper respiratory infections of unspecified site documented in this encounter [facility] note* Diagnosis Viral URI with cough Acute upper respiratory infections of unspecified site [facility] Diagnosis Acquired hypothyroidism Unspecified hypothyroidism [facility] Additional Instructions You were given IV fluids for dehydration. Continue taking your home nausea and pain medications. Follow-up with the oncologist at your appointment tomorrow.[facility] Work Phone: Reason for referral (narrative)* Diagnostic Procedure Only (Routine) - Pending Review Specialty Diagnoses / Procedures Referred By Zaida ayers Referred To Contact BR IMAGING Diagnoses Encounter for screening mammogram for breast cancer Procedures LYN SCREENING SCREENING MAMMOGRAPHY BI 2-VIEW BREAST INC CAD Girish Lemos MD [address] [place] [address] [facility] [address] [place] [id number] Referral ID Status Reason Start Date Expiration Date Visits Requested Visits Authorized [id number] Pending Review Auto-Generat ed Referral 08/17/2022 09/16/2023 1 1 [facility] for referral (narrative)* Outpatient Procedure (Routine) - Closed Specialty Diagnoses / Procedures Referred By Zaida ayers Referred To [facility] Diagnoses Bradycardia Procedures ECG COMPLETE ECG ROUTINE ECG W/LEAST 12 LDS W/I&R Jeanette Berrios APRN.CNP [address] [place] [address] [facility] [place] [address] [place] [id number] Referral ID Status Reason Start Date Expiration Date V isits Requested Visits Authorized [id number] Closed Auto-Generate d Referral 02/20/2023 02/20/2024 1 1 * Consult, Test, Treat (Routine) - Authorized Specialty Diagnoses / Procedures Referred By Zaida t Referred To Contact Cardiology Diagnoses Bradycardia First degree AV block Procedures CONSULT TO CARDIOLOGY OFFICE/OUTPATIENT [facility]3] 60-74 MINUTES MaksimlogJeanette gibbons APRN.CNP [address] [place] [address] Referral ID Status Reason Start Date Expiration Date Visits Requested Visits Authorized [id number] Authorized PCP Requested Referral 02/20/2023 02/20/2024 1 1 [facility] for referral (narrative)* Diagnostic Procedure Only (Routine) - Closed Specialty Diagnoses / Procedures Referred By Zaida ayers Referred To Contact XR IMAGING Diagnoses Pain Procedures XR FOOT GENERAL 3V AP/LAT/OBL LEFT RADEX FOOT COMPLETE MINIMUM 3 VIEWS Talat Merida [address] [place] [address] [place] [address] Referral ID Status Reason Start Date Expiration Date V isits Requested Visits Authorized [id number] Closed Auto-Generate d Referral 01/04/2023 02/03/2024 1 1 [facility] for referral (narrative)* Diagnostic Procedure Only (Routine) - Pending Review Specialty Diagnoses / Procedures Referred By Zaida ayers Referred To Contact [facility] Diagnoses Encounter for screening mammogram for breast cancer Procedures LYN SCREENING SCREENING MAMMOGRAPHY BI 2-VIEW BREAST INC CAD Girish Lemos MD [address] [place] [address] [facility] [address] [place] [address] Referral ID Status Reason Start Date Expiration Date Visits Requested Visits Authorized [id number] Pending Review Auto-Generat ed Referral 07/25/2023 08/23/2024 1 1 [facility] for referral (narrative)* Diagnostic Procedure Only (Routine) - New Request Specialty Diagnoses / Procedures Referred By Zaida ayers Referred To Contact [facility] Diagnoses Encounter for screening mammogram for breast cancer Procedures LYN SCREENING W ANT SCREENING DIGITAL BREAST TOMOSYNTHESIS BI SCREENING MAMMOGRAPHY BI 2-VIEW BREAST INC CAD Girish Lemos MD [address] [place] [address] [facility] [address] [place] [address] Referral ID Status Reason Start Date Expiration Date Visits Requested Visits Authorized [id number] New Request Auto-Generat ed Referral 06/25/2024 07/25/2025 1 1 [facility] for referral (narrative)No reason for referral information [facility] Work Phone: Reason for visit Narrative* Diagnostic Procedure Only (Routine) - Closed Specialty Diagnoses / Procedures Referred By Zaida ayers Referred To Contact XR IMAGING Diagnoses Pain Procedures XR FOOT GENERAL 3V AP/LAT/OBL LEFT RADEX FOOT COMPLETE MINIMUM 3 VIEWS Talat Meriad [address] [place] [address] [place] [id number] Referral ID Status Reason Start Date Expiration Date V isits Requested Visits Authorized [id number] Closed Auto-Generate d Referral 01/04/2023 02/03/2024 [address] [facility] Summary Purpose Family History No Family History Records Found Relationship Condition Age at Onset Recorded Date/T chris mother Malignant neoplasm Unknown father Malignant neoplasm Unknown Advance Directives No Advanced Directives Records Found Advance Directive Response Recorded Date/ Time Advance Directives No October 11:59pm Living Will No November 17, 2021 12:21pm Power of Laundry Routeman No November 17 12:21pm Advance Directive Response Recorded Date/ Time Advance Directives No October 10:59pm Living Will No September 13, 2 022 6:53am Power of Laundry Routeman No September 13, 2022 6:53am Advance Directive Response Recorded Date/ Time Advance Directives No October 11:59pm Living Will No September 13 7:53am Power of Laundry Routeman No September 13, 2022 7:53am Advance Directive Response Recorded Date/ Time Living Will No May 28, 2024 11:58am Power of Laundry Routeman No May 11:58am Living Will No November 12 2:53pm Power of Laundry Routeman No November 12, 2024 2:53pm Living Will No November 23, 2024 4:39pm Power of Laundry Routeman No November 23 4:39pm Advance Directives No October 11:59pm Advance Directive Response Recorded Date/ Time Living Will No May 28, 2024 11:58am Do you have a Healthcare Power of Laundry Routeman? No May 28, 2024 11:58am Advance Directives No December 09 11:48am Living Will No November 12 2:53pm Do you have a Healthcare Power of Laundry Routeman? No November 12, 2024 2:53pm Living Will No November 28, 2024 8:45am Do you have a Healthcare Power of Laundry Routeman? No November 28, 2024 8:45am Living Will No November 23, 2024 4:39pm Do you have a Healthcare Power of Laundry Routeman? No November 23, 2024 4:39pm Advance Directive Response Recorded Date/ Time Living Will No May 28, 2024 11:58am Do you have a Healthcare Pow er of Laundry Routeman? No May 28, 2024 11:58am Advance Directives No December 09 11:48am Living Will No November 12 2:53pm Do you have a Healthcare Pow er of Laundry Routeman? No November 12, 2024 2:53pm Living Will No November 28, 2024 8:45am Do you have a Healthcare Pow er of Laundry Routeman? No November 28, 2024 8:45am Living Will No November 23, 2024 4:39pm Do you have a Healthcare Pow er of Laundry Routeman? No November 23, 2024 4:39pm Living Will Yes December 11, 2024 8:45am Do you have a Healthcare Pow er of Laundry Routeman? Yes December 11, 2024 8:45am Name of Medical Power of Laundry Routeman SON AND DAUGHT ER December 11, 2024 8:45am Advance Directive Response Recorded Date/ Time Living Will No May 28, 2024 11:58am Do you have a Healthcare Pow er of Laundry Routeman? No May 28, 2024 11:58am Living Will No November 12 025 2:53pm Do you have a Healthcare Pow er of Laundry Routeman? No November 12, 2024 2:53pm Living Will No January 09, 2025 2:14pm Do you have a Healthcare Pow er of Laundry Routeman? No January 09, 2025 2:14pm Advance Directives No January 09 025 2:14pm Living Will No November 23, 2024 4:39pm Do you have a Healthcare Pow er of Laundry Routeman? No November 23, 2024 4:39pm Living Will Yes December 11, 2024 8:45am Do you have a Healthcare Pow er of Laundry Routeman? Yes December 11, 2024 8:45am Name of Medical Power of Laundry Routeman SON AND DAUGHT ER December 11, 2024 8:45am Do you have a Healthcare Pow er of Laundry Routeman? Yes January 09, 2025 8:02pm Name of Medical Power of Laundry Routeman Goyo Malloy viki January 09, 2025 4:01pm Advance Directive Response Recorded Date/ Time Living Will No May 28, 2024 11:58am Do you have a Healthcare Pow er of Laundry Routeman? No May 28, 2024 11:58am Living Will No November 12 025 2:53pm Do you have a Healthcare Pow er of Laundry Routeman? No November 12, 2024 2:53pm Living Will No February 06, 2025 1 2:18pm Do you have a Healthcare Pow er of Laundry Routeman? No February 06, 2025 12:18pm Advance Directives No February 06 12:18pm Do you have a Healthcare Pow er of Laundry Routeman? Yes February 11, 2025 3:02pm Living Will No November 23, 2024 4:39pm Do you have a Healthcare Pow er of Laundry Routeman? No November 23, 2024 4:39pm Living Will Yes December 11, 2024 8:45am Do you have a Healthcare Pow er of Laundry Routeman? Yes December 11, 2024 8:45am Name of Medical Power of Laundry Routeman SON AND DAUGHT ER December 11, 2024 8:45am Do you have a Healthcare Pow er of Laundry Routeman? Yes January 09, 2025 8:02pm Name of Medical Power of Laundry Routeman Goyo laguerre January 09, 2025 4:01pm Chief Complaint and Reason for Visit Chief Complaint ARMANDO sob, cough SOB 4 M FU NICOTINE DEPENDENCE Reason for Visit Respiratory insuffic iency Smoking greater than 40 pack years Chief Complaint sick GENERAL ILLNESS Reason for Visit Influenza Chief Complaint 2-3 week follow up NICOTINE DEPENDENCE Reason for Visit Bronchiectasis Smoking greater than 40 pack years Chief Complaint NICOTINE DEPENDENCE 4-6 month fu BRONCHIECTASIS BRONCHIECTASIS BRONCHIECTASIS BRONCHIECTASIS Reason for Visit Bronchiectasis COVID-19 Pulmonary fibrosis Pulmonary hypertension Smoking greater than 40 pack years Chief Complaint NICOTINE DEPENDENCE Chief Complaint Admit Date 3 M FU/discuss CT results November 03, 2024 11:20am LUNG November 11, 2024 8:23am INTRACTABLE ABDOMINAL PAIN October 12:58pm INTRACTABLE ABDOMINAL PAIN October 1:06pm INTRACTABLE ABDOMINAL PAIN October 6:39pm INTRACTABLE ABDOMINAL PAIN October 4:39pm INTRACTABLE ABDOMINAL PAIN November 15 12:05pm WEAKNESS November 23, 2024 3:39 pm Reason for Visit Admit Date Mediastinal mass November 03, 2024 11:20am Hypoxia November 03, 2024 11:20am ARMANDO (obstructive sleep apnea) October 182024 11:20am Pulmonary hypertension November 03 11:20am Smoking greater than 40 pack years Febru dacia 2024 11:20am Elevated LFTs November 12, 2024 12:58pm Elevated lipase November 12, 2024 12:58pm Epigastric pain November 12, 2024 12:58pm Intractable abdominal pain October 12:58pm Metastasis to liver November 12, 2024 12:58pm Chief Complaint Admit Date 3 M FU/discuss CT results November 03, 2024 11:20am LUNG November 11, 2024 8:23am INTRACTABLE ABDOMINAL PAIN October 12:58pm INTRACTABLE ABDOMINAL PAIN October 1:06pm INTRACTABLE ABDOMINAL PAIN October 6:39pm INTRACTABLE ABDOMINAL PAIN October 4:39pm INTRACTABLE ABDOMINAL PAIN November 15 12:05pm WEAKNESS November 23, 2024 3:39 pm LUNG CA-PENDING PATHOLOGY November 24 2:38pm TOX CHECK - LABS December 02, 2024 12: 19pm CANCER SCREEN December 03, 2024 1:5 3pm TOX CHECK - LABS December 09, 2024 9:5 1am LABS December 09, 2024 10: 15am PORT PLACEMENT December 10, 2024 12: 33pm Reason for Visit Admit Date Hypoxia November 03, 2024 11:20am ARMANDO (obstructive sleep apnea) October 182024 11:20am Pulmonary hypertension November 03 11:20am Smoking greater than 40 pack years Febru dacia 2024 11:20am Mediastinal mass November 03, 2024 11:20am Epigastric pain November 12, 2024 12:58pm Intractable abdominal pain October 12:58pm Metastasis to liver November 12, 2024 12:58pm Elevated LFTs November 12, 2024 12:58pm Elevated lipase November 12, 2024 12:58pm 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 November 24, 2024 2:38pm Jaundice November 24, 2024 2:3 8pm Metastasis to bone November 24, 2024 2:3 8pm Metastasis to liver November 24, 2024 2:3 8pm Regional lymph node metastasis present M arch 2024 2:38pm 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 24, 2024 2:38pm Bilateral lower extremity edema December 022024 12:19pm Jaundice December 02, 2024 12: 19pm Metastasis to bone December 02, 2024 12: 19pm Metastasis to liver December 02, 2024 12: 19pm Regional lymph node metastasis present M arch 2024 12:19pm Small cell lung cancer December 02, 2024 12:19pm Bilateral lower extremity edema December 092024 9:51am Metastasis to bone December 09, 2024 9:5 1am Metastasis to liver December 09, 2024 9:5 1am Regional lymph node metastasis present M arch 2024 9:51am Small cell lung cancer December 09, 2024 9:51am Encounter for insertion of venous access port December 10, 2024 12:33pm 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 December 10, 2024 12:33pm Chief Complaint Admit Date 3 M FU/discuss CT results November 03, 2024 11:20am LUNG November 11, 2024 8:23am INTRACTABLE ABDOMINAL PAIN October 12:58pm INTRACTABLE ABDOMINAL PAIN October 1:06pm INTRACTABLE ABDOMINAL PAIN October 6:39pm INTRACTABLE ABDOMINAL PAIN October 4:39pm INTRACTABLE ABDOMINAL PAIN November 15 12:05pm WEAKNESS November 23, 2024 3:39 pm LUNG CA-PENDING PATHOLOGY November 24 2:38pm TOX CHECK - LABS December 02, 2024 12: 19pm CANCER SCREEN December 03, 2024 1:5 3pm TOX CHECK - LABS December 09, 2024 9:5 1am LABS December 09, 2024 10: 15am PORT PLACEMENT December 10, 2024 12: 33pm Insertion, Vascular Port right poss left December 12, 2024 10:25am Insertion, Vascular Port right poss left December 12, 2024 11:38am Chief Complaint Admit Date 3 M FU/discuss CT results November 03, 2024 11:20am LUNG November 11, 2024 8:23am INTRACTABLE ABDOMINAL PAIN October 12:58pm INTRACTABLE ABDOMINAL PAIN October 1:06pm INTRACTABLE ABDOMINAL PAIN October 6:39pm INTRACTABLE ABDOMINAL PAIN October 4:39pm INTRACTABLE ABDOMINAL PAIN November 15 12:05pm WEAKNESS November 23, 2024 3:39 pm LUNG CA-PENDING PATHOLOGY November 24 2:38pm TOX CHECK - LABS December 02, 2024 12: 19pm CANCER SCREEN December 03, 2024 1:5 3pm TOX CHECK - LABS December 09, 2024 9:5 1am PORT PLACEMENT December 10, 2024 12: 33pm Insertion, Vascular Port right poss left December 12, 2024 10:25am Insertion, Vascular Port right poss left December 12, 2024 11:38am 3 WKS - LABS - CARBO/ETOP December 16 7:48am SUTURE REMOVAL December 22, 2024 1:00 pm TOX CHECK - LABS December 29, 2024 12: 42pm 3 WKS - LABS - ATEZO/CARBO/ETOP January 062024 7:58am LABS January 09, 2025 2:3 0pm EPISODE OF CHEST PAIN January 09, 2025 7 :31pm EPISODE OF CHEST PAIN January 10, 2025 2 :28pm Reason for Visit Admit Date Hypoxia November 03, 2024 11:20am ARMANDO (obstructive sleep apnea) October 182024 11:20am Pulmonary hypertension November 03 11:20am Smoking greater than 40 pack years Febru dacia 2024 11:20am Mediastinal mass November 03, 2024 11:20am Epigastric pain November 12, 2024 12:58pm Intractable abdominal pain October 12:58pm Metastasis to liver November 12, 2024 12:58pm Elevated LFTs November 12, 2024 12:58pm Elevated lipase November 12, 2024 12:58pm 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 November 24, 2024 2:38pm Metastasis to bone November 24, 2024 2:3 8pm Metastasis to liver November 24, 2024 2:3 8pm Regional lymph node metastasis present M arch 2024 2:38pm 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 24, 2024 2:38pm Jaundice November 24, 2024 2:3 8pm Bilateral lower extremity edema December 022024 12:19pm Metastasis to bone December 02, 2024 12: 19pm Metastasis to liver December 02, 2024 12: 19pm Regional lymph node metastasis present M arch 2024 12:19pm Small cell lung cancer December 02, 2024 12:19pm Jaundice December 02, 2024 12: 19pm Bilateral lower extremity edema December 092024 9:51am Metastasis to bone December 09, 2024 9:5 1am Metastasis to liver December 09, 2024 9:5 1am Regional lymph node metastasis present M arch 2024 9:51am Small cell lung cancer December 09, 2024 9:51am Encounter for insertion of venous access port December 10, 2024 12:33pm 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 December 10, 2024 12:33pm Bilateral lower extremity edema December 7:48am Encounter for chemotherapy management Ap 2024 7:48am Internal hemorrhoids December 16, 2024 7:4 8am Metastasis to bone December 16, 2024 7:48 am Metastasis to liver December 16, 2024 7:48 am Regional lymph node metastasis present A pril 2024 7:48am Small cell lung cancer December 16, 2024 7 :48am Port-A-Cath in place December 22, 2024 1:0 0pm Bilateral lower extremity edema December 292024 12:42pm Internal hemorrhoids December 29, 2024 12 :42pm Metastasis to bone December 29, 2024 12: 42pm Metastasis to liver December 29, 2024 12: 42pm Regional lymph node metastasis present A pril 2024 12:42pm Small cell lung cancer December 29, 2024 12:42pm Metastasis to bone January 06, 2025 7:5 8am Metastasis to liver January 06, 2025 7:5 8am Regional lymph node metastasis present A pril 2024 7:58am Small cell lung cancer January 06, 2025 7:58am Jaundice January 06, 2025 7:5 8am Chest pain January 09, 2025 7:3 1pm Elevated troponin January 09, 2025 7:3 1pm Shortness of breath January 09, 2025 7:3 1pm Small cell lung cancer January 09, 2025 7:31pm Chief Complaint Admit Date 3 M FU/discuss CT results November 03, 2024 11:20am LUNG November 11, 2024 8:23am INTRACTABLE ABDOMINAL PAIN October 12:58pm INTRACTABLE ABDOMINAL PAIN October 1:06pm INTRACTABLE ABDOMINAL PAIN October 6:39pm INTRACTABLE ABDOMINAL PAIN October 4:39pm INTRACTABLE ABDOMINAL PAIN November 15 12:05pm WEAKNESS November 23, 2024 3:39 pm LUNG CA-PENDING PATHOLOGY November 24 2:38pm TOX CHECK - LABS December 02, 2024 12: 19pm CANCER SCREEN December 03, 2024 1:5 3pm TOX CHECK - LABS December 09, 2024 9:5 1am PORT PLACEMENT December 10, 2024 12: 33pm Insertion, Vascular Port right poss left December 12, 2024 10:25am Insertion, Vascular Port right poss left December 12, 2024 11:38am 3 WKS - LABS - CARBO/ETOP December 16 7:48am SUTURE REMOVAL December 22, 2024 1:00 pm TOX CHECK - LABS December 29, 2024 12: 42pm 3 WKS - LABS - ATEZO/CARBO/ETOP January 062024 7:58am EPISODE OF CHEST PAIN January 09, 2025 7 :31pm cp admit January 09, 2025 8:2 2pm EPISODE OF CHEST PAIN January 10, 2025 2 :28pm 3 WKS - LABS - CARBO/ETOP/ATEZO January 7:56am LABS February 03, 2025 8:15a m Reason for Visit Admit Date Hypoxia November 03, 2024 11:20am ARMANDO (obstructive sleep apnea) October 182024 11:20am Pulmonary hypertension November 03 11:20am Smoking greater than 40 pack years Febru dacia 2024 11:20am Mediastinal mass November 03, 2024 11:20am Epigastric pain November 12, 2024 12:58pm Intractable abdominal pain October 12:58pm Metastasis to liver November 12, 2024 12:58pm Elevated LFTs November 12, 2024 12:58pm Elevated lipase November 12, 2024 12:58pm 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 November 24, 2024 2:38pm Metastasis to bone November 24, 2024 2:3 8pm Metastasis to liver November 24, 2024 2:3 8pm Regional lymph node metastasis present [facility] 2024 2:38pm 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 24, 2024 2:38pm Jaundice November 24, 2024 2:3 8pm Bilateral lower extremity edema December 022024 12:19pm Metastasis to bone December 02, 2024 12: 19pm Metastasis to liver December 02, 2024 12: 19pm Regional lymph node metastasis present [facility] 2024 12:19pm Small cell lung cancer December 02, 2024 12:19pm Jaundice December 02, 2024 12: 19pm Bilateral lower extremity edema December 092024 9:51am Metastasis to bone December 09, 2024 9:5 1am Metastasis to liver December 09, 2024 9:5 1am Regional lymph node metastasis present M 2024 9:51am Small cell lung cancer December 09, 2024 9:51am Encounter for insertion of venous access port December 10, 2024 12:33pm 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 December 10, 2024 12:33pm Bilateral lower extremity edema December 7:48am Encounter for chemotherapy management Ap ril 2024 7:48am Internal hemorrhoids December 16, 2024 7:4 8am Metastasis to bone December 16, 2024 7:48 am Metastasis to liver December 16, 2024 7:48 am Regional lymph node metastasis present A pril 2024 7:48am Small cell lung cancer December 16, 2024 7 :48am Port-A-Cath in place December 22, 2024 1:0 0pm Bilateral lower extremity edema December 292024 12:42pm Internal hemorrhoids December 29, 2024 12 :42pm Metastasis to bone December 29, 2024 12: 42pm Metastasis to liver December 29, 2024 12: 42pm Regional lymph node metastasis present A pril 2024 12:42pm Small cell lung cancer December 29, 2024 12:42pm Metastasis to bone January 06, 2025 7:5 8am Metastasis to liver January 06, 2025 7:5 8am Regional lymph node metastasis present A pril 2024 7:58am Small cell lung cancer January 06, 2025 7:58am Jaundice January 06, 2025 7:5 8am Shortness of breath January 09, 2025 7:3 1pm Small cell lung cancer January 09, 2025 7:31pm Chest pain January 09, 2025 7:3 1pm Elevated troponin January 09, 2025 7:3 1pm 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 February 03, 2025 7:56am Metastasis to bone February 03, 2025 7:56a m Metastasis to liver February 03, 2025 7:56a m Regional lymph node metastasis present M 2024 7:56am Jaundice February 03, 2025 7:56a m Chief Complaint Admit Date 3 M FU/discuss CT results November 03, 2024 11:20am LUNG November 11, 2024 8:23am INTRACTABLE ABDOMINAL PAIN October 12:58pm INTRACTABLE ABDOMINAL PAIN October 1:06pm INTRACTABLE ABDOMINAL PAIN October 6:39pm INTRACTABLE ABDOMINAL PAIN October 4:39pm INTRACTABLE ABDOMINAL PAIN November 15 12:05pm WEAKNESS November 23, 2024 3:39 pm LUNG CA-PENDING PATHOLOGY November 24 2:38pm TOX CHECK - LABS December 02, 2024 12: 19pm CANCER SCREEN December 03, 2024 1:5 3pm TOX CHECK - LABS December 09, 2024 9:5 1am PORT PLACEMENT December 10, 2024 12: 33pm Insertion, Vascular Port right poss left December 12, 2024 10:25am Insertion, Vascular Port right poss left December 12, 2024 11:38am 3 WKS - LABS - CARBO/ETOP December 16 7:48am SUTURE REMOVAL December 22, 2024 1:00 pm TOX CHECK - LABS December 29, 2024 12: 42pm 3 WKS - LABS - ATEZO/CARBO/ETOP January 062024 7:58am EPISODE OF CHEST PAIN January 09, 2025 7 :31pm cp admit January 09, 2025 8:2 2pm EPISODE OF CHEST PAIN January 10, 2025 2 :28pm 3 WKS - LABS - CARBO/ETOP/ATEZO January 7:56am LABS February 06, 2025 12:30 pm Block, Lumbar,Epidural TRANSFORAMINAL EP IDURAL AT February 16, 2025 6:59am Reason for Referral Specialty Diagnoses / Procedures Referred By Contac t Referred To Contact Gastroenterology Diagnoses Screening for colon cancer Procedures CONSULT TO GASTROENTEROLOGY OFFICE/OUTPATIENT [facility]3] 60-74 MINUTES Girish Lemos MD [address] [place] [address] Referral ID Status Reason Start Date Expiration Date Visits Requested Visits Authorized [id number] Authorized PCP Requested Referral 05/07/2023 05/06/2024 1 1 Specialty Diagnoses / Procedures Referred By Contac t Referred To Contact CT IMAGING Diagnoses Generalized abdominal pain Diarrhea, unspecified type Nausea Procedures CT ABD/PEL W IVCON CT ABD & PELVIS W/CONTRAST 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, 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 [address] [place] [address] [place] [id number] Referral ID Status Reason Start Date Expiration Date V isits Requested Visits Authorized [id number] Closed Auto-Generate d Referral 10/16/2024 11/15/2025 1 1 Specialty Diagnoses / Procedures Referred By Contac t Referred To Contact Oncology Diagnoses Liver masses Procedures CONSULT TO ONCOLOGY OFFICE/OUTPATIENT [facility])[3] 60 MINUTES Girish Lemos MD [address] [place], [place] [phone] Referral ID Status Reason Start Date Expiration Date Visits Requested Visits Authorized [id number] Authorized PCP Requested Referral 10/17/2024 10/17/2025 1 1 Specialty Diagnoses / Procedures Referred By Contac t Referred To Contact Diagnoses Nausea and vomiting, unspecified vomiting type Girish Lemos MD [address] [place], [place] [phone] Referral ID Status Reason Start Date Expiration Date Visits Re quested Visits Authorized [id number] Closed 1 1 Specialty Diagnoses / Procedures Referred By Contac t Referred To Contact CT IMAGING Diagnoses Liver masses Procedures CT CHEST W IVCON DIAGNOSTIC COMPUTED TOMOGRAPHY THORAX W/CONTRAST Girish Lemos MD [address] [place], [place] [phone] Ct Imaging [id number] Referral ID Status Reason Start Date Expiration Date Visits Requested Visits Authorized [id number] Authorized Auto-Generat ed Referral 10/17/2024 11/16/2025 1 1 Specialty Diagnoses / Procedures Referred By Contac t Referred To Contact Diagnoses Abnormal MRI, liver Procedures CONSULT TO HEPATOLOGY OFFICE/OUTPATIENT [facility])[3] 60 MINUTES 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 Fields 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.[facility] [address] [place] [id number] Referral ID Status Reason Start Date Expiration Date Visits Requested Visits Authorized [id number] Authorized PCP Requested Referral 10/16/2024 10/16/2025 1 1 Additional Source Comments INFORMATION SOURCE (unrecogn ized section and content) DATE CREATED AUTHOR 09/10/2020 [facility] DATE CREATED AUTHOR AUTHOR'S ORGANIZ ATION 06/14/2024 [facility] DATE CREATED AUTHOR AUTHOR'S ORGANIZ ATION 01/31/2025 [facility] DATE CREATED AUTHOR AUTHOR'S ORGANIZ ATION 02/16/2025 [facility] Goals (unrecognized section and content) Goals may be documented in a n alternate sectionGoals may be documented in an alternate sectionGoals may be documented in an alternate sectionGoals may be documented in an alternate sectionGoals may be documented in an alternate section Source Comments (unrecognize d section and content) In the event this informatio n is protected by the Federal Confidentiality of Alcohol and Drug Abuse Patient Records regulations: The Federal rules restrict any use of the information to criminally investigate or prosecute any alcohol or drug abuse patient.[facility] Hospital[facility] the event this information is protected by the Federal Confidentiality of Alcohol and Drug Abuse Patient Records regulations: The Federal rules restrict any use of the information to criminally investigate or prosecute any alcohol or drug abuse patient.[facility] HospitalIn the event this information is protected by the Federal Confidentiality of Alcohol and Drug Abuse Patient Records regulations: The Federal rules restrict any use of the information to criminally investigate or prosecute any alcohol or drug abuse patient.[facility] HospitalIn the event this information is protected by the Federal Confidentiality of Alcohol and Drug Abuse Patient Records regulations: The Federal rules restrict any use of the information to criminally investigate or prosecute any alcohol or drug abuse patient.[facility] the event this information is protected by the Federal Confidentiality of Alcohol and Drug Abuse Patient Records regulations: The Federal rules restrict any use of the information to criminally investigate or prosecute any alcohol or drug abuse patient.[facility] HospitalIn the event this information is protected by the Federal Confidentiality of Alcohol and Drug Abuse Patient Records regulations: The Federal rules restrict any use of the information to criminally investigate or prosecute any alcohol or drug abuse patient.[facility] HospitalIn the event this information is protected by the Federal Confidentiality of Alcohol and Drug Abuse Patient Records regulations: The Federal rules restrict any use of the information to criminally investigate or prosecute any alcohol or drug abuse patient.[facility] HospitalIn the event this information is protected by the Federal Confidentiality of Alcohol and Drug Abuse Patient Records regulations: The Federal rules restrict any use of the information to criminally investigate or prosecute any alcohol or drug abuse patient.[facility] HospitalIn the event this information is protected by the Federal Confidentiality of Alcohol and Drug Abuse Patient Records regulations: The Federal rules restrict any use of the information to criminally investigate or prosecute any alcohol or drug abuse patient.[facility] HospitalIn the event this information is protected by the Federal Confidentiality of Alcohol and Drug Abuse Patient Records regulations: The Federal rules restrict any use of the information to criminally investigate or prosecute any alcohol or drug abuse patient.[facility] HospitalIn the event this information is protected by the Federal Confidentiality of Alcohol and Drug Abuse Patient Records regulations: The Federal rules restrict any use of the information to criminally investigate or prosecute any alcohol or drug abuse patient.[facility] HospitalIn the event this information is protected by the Federal Confidentiality of Alcohol and Drug Abuse Patient Records regulations: The Federal rules restrict any use of the information to criminally investigate or prosecute any alcohol or drug abuse patient.[facility] HospitalIn the event this information is protected by the Federal Confidentiality of Alcohol and Drug Abuse Patient Records regulations: The Federal rules restrict any use of the information to criminally investigate or prosecute any alcohol or drug abuse patient.[facility] HospitalIn the event this information is protected by the Federal Confidentiality of Alcohol and Drug Abuse Patient Records regulations: The Federal rules restrict any use of the information to criminally investigate or prosecute any alcohol or drug abuse patient.[facility] HospitalIn the event this information is protected by the Federal Confidentiality of Alcohol and Drug Abuse Patient Records regulations: The Federal rules restrict any use of the information to criminally investigate or prosecute any alcohol or drug abuse patient.[facility] HospitalIn the event this information is protected by the Federal Confidentiality of Alcohol and Drug Abuse Patient Records regulations: The Federal rules restrict any use of the information to criminally investigate or prosecute any alcohol or drug abuse patient.[facility] HospitalIn the event this information is protected by the Federal Confidentiality of Alcohol and Drug Abuse Patient Records regulations: The Federal rules restrict any use of the information to criminally investigate or prosecute any alcohol or drug abuse patient.[facility] HospitalIn the event this information is protected by the Federal Confidentiality of Alcohol and Drug Abuse Patient Records regulations: The Federal rules restrict any use of the information to criminally investigate or prosecute any alcohol or drug abuse patient.[facility] HospitalIn the event this information is protected by the Federal Confidentiality of Alcohol and Drug Abuse Patient Records regulations: The Federal rules restrict any use of the information to criminally investigate or prosecute any alcohol or drug abuse patient.[facility] HospitalIn the event this information is protected by the Federal Confidentiality of Alcohol and Drug Abuse Patient Records regulations: The Federal rules restrict any use of the information to criminally investigate or prosecute any alcohol or drug abuse patient.[facility] HospitalIn the event this information is protected by the Federal Confidentiality of Alcohol and Drug Abuse Patient Records regulations: The Federal rules restrict any use of the information to criminally investigate or prosecute any alcohol or drug abuse patient.[facility] HospitalIn the event this information is protected by the Federal Confidentiality of Alcohol and Drug Abuse Patient Records regulations: The Federal rules restrict any use of the information to criminally investigate or prosecute any alcohol or drug abuse patient.[facility] HospitalIn the event this information is protected by the Federal Confidentiality of Alcohol and Drug Abuse Patient Records regulations: The Federal rules restrict any use of the information to criminally investigate or prosecute any alcohol or drug abuse patient.[facility] HospitalIn the event this information is protected by the Federal Confidentiality of Alcohol and Drug Abuse Patient Records regulations: The Federal rules restrict any use of the information to criminally investigate or prosecute any alcohol or drug abuse patient.[facility] HospitalIn the event this information is protected by the Federal Confidentiality of Alcohol and Drug Abuse Patient Records regulations: The Federal rules restrict any use of the information to criminally investigate or prosecute any alcohol or drug abuse patient.[facility] HospitalIn the event this information is protected by the Federal Confidentiality of Alcohol and Drug Abuse Patient Records regulations: The Federal rules restrict any use of the information to criminally investigate or prosecute any alcohol or drug abuse patient.[facility] HospitalIn the event this information is protected by the Federal Confidentiality of Alcohol and Drug Abuse Patient Records regulations: The Federal rules restrict any use of the information to criminally investigate or prosecute any alcohol or drug abuse patient.[facility] HospitalIn the event this information is protected by the Federal Confidentiality of Alcohol and Drug Abuse Patient Records regulations: The Federal rules restrict any use of the information to criminally investigate or prosecute any alcohol or drug abuse patient.[facility] HospitalIn the event this information is protected by the Federal Confidentiality of Alcohol and Drug Abuse Patient Records regulations: The Federal rules restrict any use of the information to criminally investigate or prosecute any alcohol or drug abuse patient.[facility] HospitalIn the event this information is protected by the Federal Confidentiality of Alcohol and Drug Abuse Patient Records regulations: The Federal rules restrict any use of the information to criminally investigate or prosecute any alcohol or drug abuse patient.[facility] HospitalIn the event this information is protected by the Federal Confidentiality of Alcohol and Drug Abuse Patient Records regulations: The Federal rules restrict any use of the information to criminally investigate or prosecute any alcohol or drug abuse patient.[facility] HospitalIn the event this information is protected by the Federal Confidentiality of Alcohol and Drug Abuse Patient Records regulations: The Federal rules restrict any use of the information to criminally investigate or prosecute any alcohol or drug abuse patient.[facility] HospitalIn the event this information is protected by the Federal Confidentiality of Alcohol and Drug Abuse Patient Records regulations: The Federal rules restrict any use of the information to criminally investigate or prosecute any alcohol or drug abuse patient.[facility] HospitalIn the event this information is protected by the Federal Confidentiality of Alcohol and Drug Abuse Patient Records regulations: The Federal rules restrict any use of the information to criminally investigate or prosecute any alcohol or drug abuse patient.[facility] HospitalIn the event this information is protected by the Federal Confidentiality of Alcohol and Drug Abuse Patient Records regulations: The Federal rules restrict any use of the information to criminally investigate or prosecute any alcohol or drug abuse patient.[facility] HospitalIn the event this information is protected by the Federal Confidentiality of Alcohol and Drug Abuse Patient Records regulations: The Federal rules restrict any use of the information to criminally investigate or prosecute any alcohol or drug abuse patient.[facility] HospitalIn the event this information is protected by the Federal Confidentiality of Alcohol and Drug Abuse Patient Records regulations: The Federal rules restrict any use of the information to criminally investigate or prosecute any alcohol or drug abuse patient.[facility] HospitalIn the event this information is protected by the Federal Confidentiality of Alcohol and Drug Abuse Patient Records regulations: The Federal rules restrict any use of the information to criminally investigate or prosecute any alcohol or drug abuse patient.[facility] HospitalIn the event this information is protected by the Federal Confidentiality of Alcohol and Drug Abuse Patient Records regulations: The Federal rules restrict any use of the information to criminally investigate or prosecute any alcohol or drug abuse patient.[facility] HospitalIn the event this information is protected by the Federal Confidentiality of Alcohol and Drug Abuse Patient Records regulations: The Federal rules restrict any use of the information to criminally investigate or prosecute any alcohol or drug abuse patient.[facility] HospitalIn the event this information is protected by the Federal Confidentiality of Alcohol and Drug Abuse Patient Records regulations: The Federal rules restrict any use of the information to criminally investigate or prosecute any alcohol or drug abuse patient.[facility] HospitalIn the event this information is protected by the Federal Confidentiality of Alcohol and Drug Abuse Patient Records regulations: The Federal rules restrict any use of the information to criminally investigate or prosecute any alcohol or drug abuse patient.[facility] HospitalIn the event this information is protected by the Federal Confidentiality of Alcohol and Drug Abuse Patient Records regulations: The Federal rules restrict any use of the information to criminally investigate or prosecute any alcohol or drug abuse patient.[facility] HospitalIn the event this information is protected by the Federal Confidentiality of Alcohol and Drug Abuse Patient Records regulations: The Federal rules restrict any use of the information to criminally investigate or prosecute any alcohol or drug abuse patient.[facility] HospitalIn the event this information is protected by the Federal Confidentiality of Alcohol and Drug Abuse Patient Records regulations: The Federal rules restrict any use of the information to criminally investigate or prosecute any alcohol or drug abuse patient.[facility] HospitalIn the event this information is protected by the Federal Confidentiality of Alcohol and Drug Abuse Patient Records regulations: The Federal rules restrict any use of the information to criminally investigate or prosecute any alcohol or drug abuse patient.[facility] HospitalIn the event this information is protected by the Federal Confidentiality of Alcohol and Drug Abuse Patient Records regulations: The Federal rules restrict any use of the information to criminally investigate or prosecute any alcohol or drug abuse patient.[facility] HospitalIn the event this information is protected by the Federal Confidentiality of Alcohol and Drug Abuse Patient Records regulations: The Federal rules restrict any use of the information to criminally investigate or prosecute any alcohol or drug abuse patient.[facility] HospitalIn the event this information is protected by the Federal Confidentiality of Alcohol and Drug Abuse Patient Records regulations: The Federal rules restrict any use of the information to criminally investigate or prosecute any alcohol or drug abuse patient.[facility] HospitalIn the event this information is protected by the Federal Confidentiality of Alcohol and Drug Abuse Patient Records regulations: The Federal rules restrict any use of the information to criminally investigate or prosecute any alcohol or drug abuse patient.[facility] HospitalIn the event this information is protected by the Federal Confidentiality of Alcohol and Drug Abuse Patient Records regulations: The Federal rules restrict any use of the information to criminally investigate or prosecute any alcohol or drug abuse patient.[facility] HospitalIn the event this information is protected by the Federal Confidentiality of Alcohol and Drug Abuse Patient Records regulations: The Federal rules restrict any use of the information to criminally investigate or prosecute any alcohol or drug abuse patient.[facility] HospitalIn the event this information is protected by the Federal Confidentiality of Alcohol and Drug Abuse Patient Records regulations: The Federal rules restrict any use of the information to criminally investigate or prosecute any alcohol or drug abuse patient.[facility] HospitalIn the event this information is protected by the Federal Confidentiality of Alcohol and Drug Abuse Patient Records regulations: The Federal rules restrict any use of the information to criminally investigate or prosecute any alcohol or drug abuse patient.[facility] the event this information is protected by the Federal Confidentiality of Alcohol and Drug Abuse Patient Records regulations: The Federal rules restrict any use of the information to criminally investigate or prosecute any alcohol or drug abuse patient.[facility] HospitalIn the event this information is protected by the Federal Confidentiality of Alcohol and Drug Abuse Patient Records regulations: The Federal rules restrict any use of the information to criminally investigate or prosecute any alcohol or drug abuse patient.[facility] HospitalIn the event this information is protected by the Federal Confidentiality of Alcohol and Drug Abuse Patient Records regulations: The Federal rules restrict any use of the information to criminally investigate or prosecute any alcohol or drug abuse patient.[facility] HospitalIn the event this information is protected by the Federal Confidentiality of Alcohol and Drug Abuse Patient Records regulations: The Federal rules restrict any use of the information to criminally investigate or prosecute any alcohol or drug abuse patient.[facility] HospitalIn the event this information is protected by the Federal Confidentiality of Alcohol and Drug Abuse Patient Records regulations: The Federal rules restrict any use of the information to criminally investigate or prosecute any alcohol or drug abuse patient.[facility] HospitalIn the event this information is protected by the Federal Confidentiality of Alcohol and Drug Abuse Patient Records regulations: The Federal rules restrict any use of the information to criminally investigate or prosecute any alcohol or drug abuse patient.[facility] HospitalIn the event this information is protected by the Federal Confidentiality of Alcohol and Drug Abuse Patient Records regulations: The Federal rules restrict any use of the information to criminally investigate or prosecute any alcohol or drug abuse patient.[facility] HospitalIn the event this information is protected by the Federal Confidentiality of Alcohol and Drug Abuse Patient Records regulations: The Federal rules restrict any use of the information to criminally investigate or prosecute any alcohol or drug abuse patient.[facility] HospitalIn the event this information is protected by the Federal Confidentiality of Alcohol and Drug Abuse Patient Records regulations: The Federal rules restrict any use of the information to criminally investigate or prosecute any alcohol or drug abuse patient.[facility] Reason for Visit (unrecogniz ed section and content) Reason Comments New Patient Specialty Diagnoses / Procedures Referred By Zaida ayers Referred To Contact Oncology Diagnoses Liver masses Procedures CONSULT TO ONCOLOGY OFFICE/OUTPATIENT [facility]3] 60 MINUTES Girish Lemos MD [address] [place] [address] Phone: tel: fax: Referral ID Status Reason Start Date Expiration Date V isits Requested Visits Authorized [id number] Closed PCP Requested Referral 10/17/2024 10/17/2025 1 1 Reason Onset Date Comments Refill Request 02/22/2022 Reason Comments URI x 1 week Reason Comments urinary symptoms Reason Comments Hematuria vaginal itching x th is am Reason Comments Results Reason Onset Date Comments Refill Request 08/04/2022 Reason Comments Physical Reason Comments Medication Request Reason Comments Cough Reason Comments Derm Problem In for removal of sk in tags Reason Comments Established Patient Pain Swelling Reason Comments F/U 6 Month Reason Comments Request Outside Medical Records Reason Comments Recheck Low heart rate Reason Onset Date Comments Refill Request 04/13/2023 Reason Comments Consult Reason Comments F/U 3 Month Reason Onset Date Comments Refill Request 10/23/2023 Reason Comments F/U 6 months Increase in muscle c ramps Reason Onset Date Comments Refill Request 04/28/2024 Reason Onset Date Comments Refill Request 07/11/2024 Reason Comments F/U 6 months Reason Comments BP Check Reason Comments Patient Update Reason Comments Blood Pressure Recheck-losartan inc reased to 50mg.No note of call back from [facility] [place] around 09/03/24 as requested with readings. Patient reports am readings higher but was advised by visiting nurse to take prior to medication. 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 [id number] [place] [address] Referral ID Status Reason Start Date Expiration Date V isits Requested Visits Authorized [id number] Closed Auto-Generate d Referral 10/16/2024 11/15/2025 1 1 Reason Comments Follow Up discuss lab results and care plan, diarrhea x 3 days Reason Comments Results Reason Comments Orders Reason Comments Patient Request Reason Comments Radiology CT Specialty Diagnoses / Procedures Referred By Contac t Referred To Contact CT IMAGING Diagnoses Liver masses Procedures CT CHEST W IVCON DIAGNOSTIC COMPUTED TOMOGRAPHY THORAX W/CONTRAST Girish Lemos MD [address] [id number] Phone: tel: fax: CT IMAGING [place] [address] Referral ID Status Reason Start Date Expiration Date V isits Requested Visits Authorized [id number] Closed Auto-Generate d Referral 10/17/2024 11/16/2025 1 1 Reason Comments requesting disk Reason Comments Return Call Request Reason Comments Follow Up 4 week follow up Diarrhea Weight Problem Weight loss down sue darell 7 lbs in 1 week Fatigue weakness Sleep Problem Abdominal Pain Continues- PET scan completed yesterday Reason Onset Date Comments Encounter not needed 12/15/2024 Reason Onset Date Comments Refill Request 12/15/2024 Reason Onset Date Comments Results 10/30/2024 Reason Comments Hospital F/U Reason Comments Cough Non-productive Throat Problem Hoarse and sore sinus congestion with occasional green m ucus Perspiration Reason Onset Date Comments Results 01/26/2025 Chest Xray Reason Onset Date Comments Refill Request 02/11/2025 Care Teams (unrecognized sec tion and content) Caddymaster Relationship Specialty Start Date End Date Girish Lemos MD [address] [place] [address] PCP - General Family Practice 11/14/17 Caddymaster Relationship Specialty Start Date End Date Girish Lemos MD [address] [place] [address] PCP - General Family Practice 11/14/17 Caddymaster Relationship Specialty Start Date End Date Girish Lemos MD [address] [place] [address] PCP - General Family Medicine 11/14/17 Caddymaster Relationship Specialty Start Date End Date Girish Lemos MD [address] [place] [address] PCP - General Family Medicine 11/14/17 Caddymaster Relationship Specialty Start Date End Date Girish Lemos MD [address] [place] [address] PCP - General Family Medicine 11/14/17 Caddymaster Relationship Specialty Start Date End Date Girish Lemos MD [address] [place] [address] PCP - General Family Medicine 11/14/17 Caddymaster Relationship Specialty Start Date End Date Girish Lemos MD [address] [place] [address] PCP - General Family Medicine 11/14/17 Caddymaster Relationship Specialty Start Date End Date Girish Lemos MD [address] [place] [address] PCP - General Family Medicine 11/14/17 Caddymaster Relationship Specialty Start Date End Date Girish Lemos MD [address] [place] [address] PCP - General Family Medicine 11/14/17 Caddymaster Relationship Specialty Start Date End Date Girish Lemos MD [address] [place] [address] PCP - General Family Medicine 11/14/17 Caddymaster Relationship Specialty Start Date End Date Girish Lemos MD [address] [place] [address] PCP - General Family Medicine 11/14/17 Team Status: Active Member Role Status Dates DEFINED NOT Family Provider Active Dr. Fabricio Lemos MD Primary Care Provider Acti ve Team Status: Inactive Member Role Status Dates Dr. Fabricio Lemos MD Primary Care Provider, Ref erring Provider Active Roxann Gomez EPIDEMIOLOGY INVESTIGATOR, EPIDEMIOLOGY INVESTIGATOR-C Attending Provider Active Team Status: Inactive Member Role Status Dates Dr. Fabricio Lemos MD Primary Care Provider Acti ve Roxann Gomez EPIDEMIOLOGY INVESTIGATOR, EPIDEMIOLOGY INVESTIGATOR-C Attending Provider, [facility] Active Caddymaster Relationship Specialty Start Date End Date Girish Lemos MD [address] [place] [address] PCP - General Family Medicine 11/14/17 Caddymaster Relationship Specialty Start Date End Date Girish Lemos MD [address] [place] [address] PCP - General Family Medicine 11/14/17 Caddymaster Relationship Specialty Start Date End Date Girish Lemos MD [address] [place] [address] PCP - General Family Medicine 11/14/17 Caddymaster Relationship Specialty Start Date End Date Girish Lemos MD [address] [place] [address] PCP - General Family Medicine 11/14/17 Caddymaster Relationship Specialty Start Date End Date Girish Lemos MD [address] [place] [address] PCP - General Family Medicine 11/14/17 Team Status: Inactive Member Role Status Dates Dr. Fabricio Lemos MD Primary Care Provider, Ref erring Provider Active Dr. Tobias Gonsalves MD Attending Provider Active Team Status: Active Member Role Status Dates Dr. Fabricio Lemos MD Primary Care Provider Acti ve Dr. Tobias Gonsalves MD Referring Provider, Other Provid er Active Dr. Sarmad Noe DO Attending Provider Active Team Status: Inactive Member Role Status Dates Dr. Fabricio Lemos MD Primary Care Provider Acti ve Dr. Tobias Gonsalves MD Attending Provider, Referring Pr ovider Active Caddymaster Relationship Specialty Start Date End Date Girish Lemos MD [address] [place] [address] PCP - General Family Medicine 11/14/17 Caddymaster Relationship Specialty Start Date End Date Girish Lemos MD [address] [place] [address] PCP - General Family Medicine 11/14/17 Caddymaster Relationship Specialty Start Date End Date Girish Lemos MD [address] [place], [place] [address] PCP - General Family Medicine 11/14/17 Caddymaster Relationship Specialty Start Date End Date Girish Lemos MD [address] [place] [address] PCP - General Family Medicine 11/14/17 Caddymaster Relationship Specialty Start Date End Date Girish Lemos MD [address] [place] [address] PCP - General Family Medicine 11/14/17 Caddymaster Relationship Specialty Start Date End Date Girish Lemos MD [address] [place] [address] PCP - General Family Medicine 11/14/17 Caddymaster Relationship Specialty Start Date End Date Girish Lemos MD [address] [place] [address] PCP - General Family Medicine 11/14/17 Caddymaster Relationship Specialty Start Date End Date Girish Lemos MD [address] [place] [address] PCP - General Family Medicine 11/14/17 Caddymaster Relationship Specialty Start Date End Date Girish Lemos MD [address] [place] [address] PCP - General Family Medicine 11/14/17 Caddymaster Relationship Specialty Start Date End Date Girish Lemos MD [address] [place] [address] PCP - General Family Medicine 11/14/17 Caddymaster Relationship Specialty Start Date End Date Girish Lemos MD [address] [place] [address] PCP - General Family Medicine 11/14/17 Caddymaster Relationship Specialty Start Date End Date Girish Lemos MD [address] [place] [address] PCP - General Family Medicine 11/14/17 Caddymaster Relationship Specialty Start Date End Date Girish Lemos MD [address] [facility] [place] [id number] PCP - General Family Medicine 11/14/17 Podlogar, WILFRED ReidN.RADIATION ENGINEER [address] [facility] [place] [id number] Transportation Clerk Family Medicine 08/23/24 Caddymaster Relationship Specialty Start Date End Date Girish Lemos MD [address] [facility] [place] [address] PCP - General Family Medicine 11/14/17 Podlogar, ALEXA Reid.RADIATION ENGINEER [address] [facility] [place] [address] Transportation Clerk Family Medicine 08/23/24 Caddymaster Relationship Specialty Start Date End Date Girish Lemos MD [address] [facility] [place] [place] [address] PCP - General Family Medicine 11/14/17 Podlogar, WILFRED ReidN.RADIATION ENGINEER [address] [facility] [place] [place] [address] [facility] Caddymaster Relationship Specialty Start Date End Date Girish Lemos MD [address] [facility] [place] [place] [address] PCP - General Family Medicine 11/14/17 Podlogar, Jeanette, 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 [address] [place] [address] [facility] 08/23/24 Caddymaster Relationship Specialty Start Date End Date Girish Lemos MD [address] [place] [address] PCP - General Family Medicine 11/14/17 Podlogar, WILFRED ReidN.RADIATION ENGINEER [address] [place] [address] [facility] 08/23/24 Caddymaster Relationship Specialty Start Date End Date Girish Lemos MD [address] [place] [address] PCP - General Family Medicine 11/14/17 Podlogar, ALEXA Reid.RADIATION ENGINEER [address] [place] [address] [facility] 08/23/24 Caddymaster Relationship Specialty Start Date End Date Girish Lemos MD [address] [place] [address] PCP - General Family Medicine 11/14/17 Podlogar, Jeanette 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 [address] [place] [address] [facility] 08/23/24 Caddymaster Relationship Specialty Start Date End Date Girish Lemos MD [address] [place] [address] PCP - General Family Medicine 11/14/17 Podlogar, Jeanette, 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 [address] [place] [address] [facility] 08/23/24 Caddymaster Relationship Specialty Start Date End Date Girish Lemos MD [address] [place] [address] PCP - General Family Medicine 11/14/17 Podlogar, WILFRED ReidN.RADIATION ENGINEER [address] [place] [address] [facility] 08/23/24 Caddymaster Relationship Specialty Start Date End Date Girish Lemos MD [address] [place] [address] PCP - General Family Medicine 11/14/17 Podlogar, ALEXA Reid.RADIATION ENGINEER [address] [place] [address] [facility] 08/23/24 Caddymaster Relationship Specialty Start Date End Date Girish Lemos MD [address] [place] [address] PCP - General Family Medicine 11/14/17 Podlogar, WILFRED ReidN.RADIATION ENGINEER [address] [place] [address] [facility] 08/23/24 Caddymaster Relationship Specialty Start Date End Date Girish Lemos MD [address] [place] [address] PCP - General Family Medicine 11/14/17 Podlogar, Jeanette 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 [address] [place] [address] [facility] 08/23/24 Caddymaster Relationship Specialty Start Date End Date Girish Lemos MD [address] [facility] [place] [address] PCP - General Family Medicine 11/14/17 Podlogar, WILFRED ReidN.RADIATION ENGINEER [address] [facility] [place] [address] [facility] 08/23/24 Caddymaster Relationship Specialty Start Date End Date Girish Lemos MD [address] [facility] [place] [place] [address] PCP - General Family Medicine 11/14/17 Podlogar, Jeanette 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 [address] [facility] [place] [address] [facility] 08/23/24 Roxann Gomez [address] [place] [address] Vascular Medicine 11/05/24 Caddymaster Relationship Specialty Start Date End Date Girish Lemos MD [address] [facility] [place] [address] PCP - General Family Medicine 11/14/17 Podlogar, Jeanette 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 [address] [facility] [place] [address] [facility] 08/23/24 Roxann Gomez [address] [place] [address] Vascular Medicine 11/05/24 Silas Robbins MD [address] [place] [address] Hematology/Oncology 11/10/24 Caddymaster Relationship Specialty Start Date End Date Giirsh Lemos MD [address] [place] [address] PCP - General Family Medicine 11/14/17 PodlogarJeanette APRN.RADIATION ENGINEER [address] [place] [address] Transportation Clerk Family Medicine 08/23/24 Roxann Gomez [address] [place] [address] Vascular Medicine 11/05/24 Silas Robbins MD [address] [place] [address] Hematology/Oncology 11/10/24 Caddymaster Relationship Specialty Start Date End Date Girish Lemos MD [address] [place] [address] PCP - General Family Medicine 11/14/17 PodlogarJeanette APRN.RADIATION ENGINEER [address] [place] [address] Transportation Clerk Family Medicine 08/23/24 Roxann Gomez [address] [place] [address] Vascular Medicine 11/05/24 Silas Robbins MD [address] [place], [place] [address] Hematology/Oncology 11/10/24 Team Status: Active Member Role Status Dates Dr. Fabricio Lemos MD Primary Care Provider Acti ve Team Status: Inactive Member Role Status Dates Dr. Fabricio Lemos MD Primary Care Provider Acti ve Start: November 03, 2024 End: November 03, 2024 Dr. Fabricio Lemos MD Referring Provider Active Start: November 03, 2024 End: November 03, 2024 Roxann Gomez EPIDEMIOLOGY INVESTIGATOR, EPIDEMIOLOGY INVESTIGATOR-C Attending Provider Active Start: November 03, 2024 End: November 03, 2024 Team Status: Inactive Member Role Status Dates Dr. Fabricio Lemos MD Primary Care Provider Acti ve Start: November 11, 2024 End: November 11, 2024 Roxann Gomez EPIDEMIOLOGY INVESTIGATOR, EPIDEMIOLOGY INVESTIGATOR-C Attending Provider Active Start: November 11, 2024 End: November 11, 2024 Roxann Gomez EPIDEMIOLOGY INVESTIGATOR, EPIDEMIOLOGY INVESTIGATOR-C Referring Provider Active Start: November 11, 2024 End: November 11, 2024 Team Status: Inactive Member Role Status Dates Dr. Fabricio Lemos MD Primary Care Provider Acti ve Start: November 12, 2024 End: November 15, 2024 Austin Mack MD Emergency Provider Active Star t: November 12, 2024 End: November 15, 2024 Dr. Mae Horton , Admit Provider Active Start : November 12, 2024 End: November 15, 2024 Dr. Mae Horton DO Attending Provider Active S tart: November 12, 2024 End: November 15, 2024 Team Status: Active Member Role Status Dates Dr. Fabricio Lemos MD Primary Care Provider Acti ve Start: November 12, 2024 Austin Mack MD Emergency Provider Active Star t: November 12, 2024 Dr. Mae Horton DO Admit Provider Active Start : November 12, 2024 Dr. Mae Horton DO Attending Provider Active S tart: November 12, 2024 Dr. Mae Horton DO Other Provider Active Start : November 12, 2024 Team Status: Active Member Role Status Dates Dr. Fabricio Lemos MD Primary Care Provider Acti ve Start: November 13, 2024 Austin Mack MD Emergency Provider Active Star t: November 13, 2024 Dr. Mae Horton DO Admit Provider Active Start : November 13, 2024 Dr. Mae Horton DO Attending Provider Active S tart: November 13, 2024 Dr. Mae Horton DO Other Provider Active Start : November 13, 2024 Team Status: Active Member Role Status Dates Dr. Fabricio Lemos MD Primary Care Provider Acti ve Start: November 14, 2024 Austin Mack MD Emergency Provider Active Star t: November 14, 2024 Dr. Mae Horton DO Admit Provider Active Start : November 14, 2024 Dr. Mae Horton DO Attending Provider Active S tart: November 14, 2024 Dr. Mae Horton DO Other Provider Active Start : November 14, 2024 Team Status: Active Member Role Status Dates Dr. Fabricio Lemos MD Primary Care Provider Acti ve Start: November 15, 2024 Austin Mack MD Emergency Provider Active Star t: November 15, 2024 Dr. Mae Horton DO Admit Provider Active Start : November 15, 2024 Dr. Mae Horton DO Attending Provider Active S tart: November 15, 2024 Dr. Mae Horton DO Other Provider Active Start : November 15, 2024 Team Status: Inactive Member Role Status Dates Dr. Fabricio Lemos MD Primary Care Provider Acti ve Start: November 23, 2024 End: November 23, 2024 Dr. Alex Mercado MD Emergency Provider Active S tart: November 23, 2024 End: November 23, 2024 Team Status: Inactive Member Role Status Dates Dr. Fabricio Lemos MD Primary Care Provider Acti ve Start: November 23, 2024 End: November 23, 2024 Dr. Alex Mercado MD Attending Provider Active S tart: November 23, 2024 End: November 23, 2024 Dr. Alex Mercado MD Emergency Provider Active S tart: November 23, 2024 End: November 23, 2024 Team Status: Inactive Member Role Status Dates Dr. Fabricio Lemos MD Primary Care Provider Acti ve Start: November 24, 2024 End: November 24, 2024 Roxann Gomez EPIDEMIOLOGY INVESTIGATOR, EPIDEMIOLOGY INVESTIGATOR-C Referring Provider Active Start: November 24, 2024 End: November 24, 2024 Dr. Sherice Fernandez MD Attending Provider Active Start: November 24, 2024 End: November 24, 2024 Team Status: Inactive Member Role Status Dates Dr. Fabricio Lemos MD Primary Care Provider Acti ve Start: December 02, 2024 End: December 02, 2024 Dr. Fabricio Lemos MD Referring Provider Active Start: December 02, 2024 End: December 02, 2024 Sharda Bronson EPIDEMIOLOGY INVESTIGATOR, EPIDEMIOLOGY INVESTIGATOR-C Attending Provider Active Start: December 02, 2024 End: December 02, 2024 Team Status: Inactive Member Role Status Dates Dr. Fabricio Lemos MD Primary Care Provider Acti ve Start: December 03, 2024 End: December 03, 2024 Dr. Sherice Fernandez MD Attending Provider Active Start: December 03, 2024 End: December 03, 2024 Dr. Sherice Fernandez MD Referring Provider Active Start: December 03, 2024 End: December 03, 2024 Team Status: Inactive Member Role Status Dates Dr. Fabricio Lemos MD Primary Care Provider Acti ve Start: December 09, 2024 End: December 09, 2024 Dr. Fabricio Lemos MD Referring Provider Active Start: December 09, 2024 End: December 09, 2024 Sharda Bronson EPIDEMIOLOGY INVESTIGATOR, EPIDEMIOLOGY INVESTIGATOR-C Attending Provider Active Start: December 09, 2024 End: December 09, 2024 Team Status: Active Member Role Status Dates Dr. Fabricio Lemos MD Primary Care Provider Acti ve Start: December 09, 2024 Dr. Sherice Fernandez MD Attending Provider Active Start: December 09, 2024 Dr. Sherice Fernandez MD Referring Provider Active Start: December 09, 2024 Team Status: Inactive Member Role Status Dates Dr. Fabricio Lemos MD Primary Care Provider Acti ve Start: December 10, 2024 End: December 10, 2024 Dr. Fabricio Lemos MD Referring Provider Active Start: December 10, 2024 End: December 10, 2024 Dr. Yeimi Sorto MD Attending Provider Active Start: December 10, 2024 End: December 10, 2024 Team Status: Inactive Member Role Status Dates Dr. Fabricio Lemos MD Primary Care Provider Acti ve Start: December 12, 2024 End: December 12, 2024 Dr. Yeimi Sorto MD Attending Provider Active Start: December 12, 2024 End: December 12, 2024 Dr. Yeimi Sorto MD Referring Provider Active Start: December 12, 2024 End: December 12, 2024 Team Status: Active Member Role Status Dates Dr. Fabricio Lemos MD Primary Care Provider Acti ve Start: December 12, 2024 Dr. Yeimi Sorto MD Attending Provider Active Start: December 12, 2024 Dr. Yeimi Sorto MD Referring Provider Active Start: December 12, 2024 Dr. Yeimi Sorto MD Other Provider Active S tart: December 12, 2024 Caddymaster Relationship Specialty Start Date End Date Girish Lemos MD [address] [place], [place] [address] PCP - General Family Medicine 11/14/17 PodlucasarJeanette APRN.RADIATION ENGINEER [address] [place], [place] [address] Transportation Clerk Family Medicine 08/23/24 Roxann Gomez [address] [place] [address] Vascular Medicine 11/05/24 Silas Robbins MD [address] [place], [place] [id number] Hematology/Oncology 11/10/24 Oleg Fields APRN.RADIATION ENGINEER [address] [place], [place] [id number] Transportation Clerk Family Medicine 12/08/24 Caddymaster Relationship Specialty Start Date End Date Girish Lemos MD [address] [place], [place] [id number] PCP - General Family Medicine 11/14/17 Podlogar, ALEXA Reid.RADIATION ENGINEER [address] [facility] [place] [address] [facility] 08/[facility]/24 Roxann Gomez [address] [place] [address] Vascular Medicine 11/05/24 Silas Robbins MD [address] [place] [address] Hematology/Oncology 11/10/24 Oleg Fields APRN.RADIATION ENGINEER [address] [place] [address] [facility] 12/08/24 Caddymaster Relationship Specialty Start Date End Date Girish Lemos MD [address] [facility] [place] [address] PCP - General Family Medicine 11/14/17 Podlogar, ALEXA Reid.RADIATION ENGINEER [address] [facility] [place] [address] [facility] 08/23/24 Roxann Gomez [address] [place] [address] Vascular Medicine 11/05/24 Silas Robbins MD [address] [place] [address] Hematology/Oncology 11/10/24 Oleg Fields APRN.RADIATION ENGINEER [address] [place] [address] Transportation Clerk Family [facility] 11/28/24 12/07/24 Oleg Fields APRN.CNP [address] [place] [address] Transportation Clerk Family [facility] 12/08/24 Team Status: Inactive Member Role Status Dates Dr. Fabricio Lemos MD Primary Care Provider Acti ve Start: December 16, 2024 End: December 16, 2024 Dr. Fabricio Lemos MD Referring Provider Active Start: December 16, 2024 End: December 16, 2024 Sharda Bronson EPIDEMIOLOGY INVESTIGATOR, EPIDEMIOLOGY INVESTIGATOR-C Attending Provider Active Start: December 16, 2024 End: December 16, 2024 Team Status: Inactive Member Role Status Dates Dr. Fabricio Lemos MD Primary Care Provider Acti ve Start: December 22, 2024 End: December 22, 2024 Dr. Fabricio Lemos MD Referring Provider Active Start: December 22, 2024 End: December 22, 2024 Rachael BENNETT PA-C Attending Provider Active Start: December 22, 2024 End: December 22, 2024 Team Status: Inactive Member Role Status Dates Dr. Fabricio Lemos MD Primary Care Provider Acti ve Start: December 29, 2024 End: December 29, 2024 Dr. Fabricio Lemos MD Referring Provider Active Start: December 29, 2024 End: December 29, 2024 Sharda Bronson NP EPIDEMIOLOGY INVESTIGATOR-C Attending Provider Active Start: December 29, 2024 End: December 29, 2024 Team Status: Inactive Member Role Status Dates Dr. Fabricio Lemos MD Primary Care Provider Acti ve Start: January 06, 2025 End: January 06, 2025 Dr. Fabricio Lemos MD Referring Provider Active Start: January 06, 2025 End: January 06, 2025 Dr. Sherice Fernandez MD Attending Provider Active Start: January 06, 2025 End: January 06, 2025 Team Status: Active Member Role Status Dates Dr. Fabricio Lemos MD Primary Care Provider Acti ve Start: January 09, 2025 Dr. Sherice Fernandez MD Attending Provider Active Start: January 09, 2025 Dr. Sherice Fernandez MD Referring Provider Active Start: January 09, 2025 Team Status: Inactive Member Role Status Dates Dr. Fabricio Lemos MD Primary Care Provider Acti ve Start: January 09, 2025 End: January 10, 2025 Austin Mack MD Emergency Provider Active Star t: January 09, 2025 End: January 10, 2025 Dr. Estrella Cabezas MD Admit Provider Active Star t: January 09, 2025 End: January 10, 2025 Dr. Estrella Cabezas MD Referring Provider Active Start: January 09, 2025 End: January 10, 2025 Dr. Estrella Cabezas MD Other Provider Active Star t: January 09, 2025 End: January 10, 2025 Dr. Jassi Borden MD Attending Provider Active Start: January 09, 2025 End: January 10, 2025 Team Status: Active Member Role Status Dates Dr. Fabricio Lemos MD Primary Care Provider Acti ve Start: January 10, 2025 Dr. Santi Hurd MD Attending Provider Active Start: January 10, 2025 Team Status: Active Member Role Status Dates Dr. Fabricio Lemos MD Primary Care Provider Acti ve Start: January 10, 2025 Austin Mack MD Emergency Provider Active Star t: January 10, 2025 Dr. Estrella Cabezas MD Admit Provider Active Star t: January 10, 2025 Dr. Estrella Cabezas MD Referring Provider Active Start: January 10, 2025 Dr. Estrella Cabezas MD Other Provider Active Star t: January 10, 2025 Dr. Jassi Borden MD Attending Provider Active Start: January 10, 2025 Dr. Jassi Borden MD Other Provider Active Sta rt: January 10, 2025 Caddymaster Relationship Specialty Start Date End Date Girish Lemos MD [address] [place], [place] [address] PCP - General Family Medicine 11/14/17 MaksimlogarJeanette APRN.CNP [address] [place], [place] [id number] [facility] 08/23/24 Roxann Gomez [address] [place] [address] Vascular Medicine 11/05/24 Silas Robbins MD [address] [place] [address] Hematology/Oncology 11/10/24 Oleg Fields 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 [address] [facility] [place] [address] [facility] 12/08/24 Caddymaster Relationship Specialty Start Date End Date Girish Lemos MD [address] [place] [address] PCP - General Family Medicine 11/14/17 PodlogarJeanette APRN.RADIATION ENGINEER [address] [place] [address] [facility] 08/23/24 Roxann Gomez [address] [place] [address] Vascular Medicine 11/05/24 Silas Robbins MD [address] [place] [address] Hematology/Oncology 11/10/24 Oleg Fields, 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 [address] [facility] [place] [address] [facility] 12/08/24 Caddymaster Relationship Specialty Start Date End Date Girish Lemos MD [address] [place] [address] PCP - General Family Medicine 11/14/17 PodlogarJeanette APRN.RADIATION ENGINEER [address] [place] [address] Transportation Clerk Family Medicine 08/23/24 Roxann Gomez [address] [place] [address] Vascular Medicine 11/05/24 Silas Robbins MD [address] [place] [address] Hematology/Oncology 11/10/24 Oleg Fields APRN.RADIATION ENGINEER [address] [facility] [place] [address] [facility] 12/08/24 Caddymaster Relationship Specialty Start Date End Date Girish Lemos MD [address] [place] [address] PCP - General Family Medicine 11/14/17 PodlogarJeanette APRN.RADIATION ENGINEER [address] [place] [address] Transportation Clerk Family [facility] 08/23/24 Roxann Gomez [address] [place] [address] Vascular Medicine 11/05/24 Silas Robbins MD [address] [place] [address] Hematology/Oncology 11/10/24 Oleg Fields, 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 [address] [place], [place] [id number] [facility] 12/08/24 Caddymaster Relationship Specialty Start Date End Date Girish Lemos MD [address] [place], [place] [id number] PCP - General Family Medicine 11/14/17 PodlogarJeanette APRN.RADIATION ENGINEER [address] [place], [place] [id number] [facility] 08/23/24 Roxann Gomez [address] [place] [id number] Vascular Medicine 11/05/24 Silas Robbins MD [address] [place], [place] [address] Hematology/Oncology 11/10/24 Oleg Fields, 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 [address] [place], [place] [phone] [facility] 12/08/24 Team Status: Active Member Role Status Dates Dr. Fabricio Lemos MD Primary Care Provider Acti ve Start: January 09, 2025 End: January 09, 2025 Dr. Man Polo MD Attending Provider Active S tart: January 09, 2025 End: January 09, 2025 Dr. Estrella Cabezas MD Referring Provider Active Start: January 09, 2025 End: January 09, 2025 Team Status: Active Member Role Status Dates Dr. Fabricio Lemos MD Primary Care Provider Acti ve Start: January 10, 2025 Austin Mack MD Emergency Provider Active Star t: January 10, 2025 Dr. Estrella Cabezas MD Admit Provider Active Star t: January 10, 2025 Dr. Estrella Cabezas MD Other Provider Active Star t: January 10, 2025 Dr. Jassi Borden MD Attending Provider Active Start: January 10, 2025 Dr. Jassi Borden MD Other Provider Active Sta rt: January 10, 2025 Team Status: Inactive Member Role Status Dates Dr. Fabricio Lemos MD Primary Care Provider Acti ve Start: February 03, 2025 End: February 03, 2025 Dr. Fabricio Lemos MD Referring Provider Active Start: February 03, 2025 End: February 03, 2025 Dr. Sherice Fernandez MD Attending Provider Active Start: February 03, 2025 End: February 03, 2025 Team Status: Active Member Role Status Dates Dr. Fabricio Lemos MD Primary Care Provider Acti ve Start: February 03, 2025 Dr. Sherice Fernandez MD Attending Provider Active Start: February 03, 2025 Dr. Sherice Fernandez MD Referring Provider Active Start: February 03, 2025 Caddymaster Relationship Specialty Start Date End Date Girish Lemos MD [address] [place], [place] [id number] PCP - General Family Medicine 11/14/17 MaksimlogarJeanette APRN.CNP [address] [place], [place] [id number] Transportation Clerk Family Medicine 08/23/24 Roxann Gomez [address] [facility] [place] [id number] Vascular Medicine 11/05/24 Silas Robbins MD [address] [place], [place] [id number] Hematology/Oncology 11/10/24 Team Status: Active Member Role Status Dates Dr. Fabricio Lemos MD Primary Care Provider Acti ve Start: February 06, 2025 Dr. Sherice Fernandez MD Attending Provider Active Start: February 06, 2025 Dr. Sherice Fernandez MD Referring Provider Active Start: February 06, 2025 Team Status: Inactive Member Role Status Dates Dr. Fabricio Lemos MD Primary Care Provider Acti ve Start: February 16, 2025 End: February 16, 2025 Dr. Az Hoffmann MD Attending Provider Active Start: February 16, 2025 End: February 16, 2025 Dr. Az Hoffmann MD Referring Provider Active Start: February 16, 2025 End: February 16, 2025 FOR RECORDS PERTAINING TO PATIENTS WHO ARE OR HAVE BEEN ENROLLED IN A CHEMICAL DEPENDENCY/SUBSTANCEABUSE PROGRAM, SOME INFORMATION MAY BE OMITTED. This clinical summary was aggregated from multiple sources. Caution should be exercised in using it in the provision of clinical care. This summary normalizes information from multiple sources, and as a consequence, information in this document may materially change the coding, format and clinical context of patient data. In addition, data may be omitted in some cases. CLINICAL DECISIONS SHOULD BE BASED ON THE PRIMARY CLINICAL RECORDS. [email or web address] [facility]. provides no warranty or guarantee of the accuracy or completeness of information in this document.
--- NOTE | 2025-02-17 07:05 | CT_ITS ---
PROCEDURE: CT CHEST AND ABD W/ CONTRAST 02/17/2025 REASON FOR EXAM: F/U LUNG CANCER IV CONTRAST ONLY TECHNIQUE: Chest and abdomen CT with intravenous contrast. Coronal and Sagittal reconstruction series were provided. One or more dose reduction techniques were used (e.g., Automated exposure control, adjustment of the mA and/or kV according to patient size, use of iterative reconstruction technique. COMPARISON: 10/30/2024, 11/12/2024 FINDINGS: CT CHEST: Heart size is within normal limits. No significant pericardial effusion. Mild LAD coronary artery calcifications. Calcified nonaneurysmal thoracic aorta without dissection. Normal caliber pulmonary arteries without central filling defects. No pathologically enlarged lymph nodes. A couple of mildly prominent left hilar and subcarinal lymph nodes, similar to prior. Superficial soft tissues are within normal limits. Central airways are patent. Interval decreased size of the spiculated nodule in the perihilar region of the left upper lobe measuring approximately 11 x 14 x 17 mm (previously 18 x 26 x 22 mm) with adjacent linear scarring. Similar-appearing scattered bilateral pulmonary fibrotic changes, scarring and emphysema, mostly subpleural. No new concerning nodule or mass. No acute or suspicious osseous abnormality. Multiple new subtle sclerotic lesions scattered throughout the thoracic spine consistent with osseous metastatic disease. CT ABDOMEN: Similar-appearing innumerable scattered hypodense lesions throughout the liver. Spleen, pancreas and adrenal glands are intact. Gallbladder is surgically absent. No significant biliary ductal dilation. Kidneys enhance symmetrically. No suspicious renal mass, calculi or hydronephrosis. No bowel obstruction, focal bowel wall thickening or significant perienteric inflammation. Mild multifocal ectasia of the abdominal aorta which is severely calcified. No bulky adenopathy. Superficial soft tissues are within normal limits. No acute osseous abnormality. Scattered sclerotic lesions throughout the lumbar spine consistent with metastatic disease. No pathologic fracture. CT/CT Chest AND Abd W/ Contrast IMPRESSION: 1. Interval decreased size of the left perihilar nodule with comparative measur ements above and mild adjacent scarring likely related to posttreatment change. 2. Similar-appearing diffuse hepatic metastatic disease. 3. Interval improvement of the previous mediastinal and left hilar lymphadenopa thy. No new concerning adenopathy. 4. New scattered osseous metastatic disease throughout the thoracolumbar spine. No pathologic fracture. Reading Location: [facility]
[2025-02-17] MEDS: 0.9% Saline Lock 10 ML Syringe IV (07:42)
== END | disposition home or self-care (01) ==
LOC: CT 06:56
PROVIDERS: PCP Family Medicine; Referring Provider Internal Medicine Hematology & Oncology; Visit Provider Internal Medicine Hematology & Oncology
DX: C34.12 Malignant neoplasm of upper lobe, left bronchus or lung (principal); C78.7 Secondary malignant neoplasm of liver and intrahepatic bile duct; C79.51 Secondary malignant neoplasm of bone; C77.9 Secondary and unspecified malignant neoplasm of lymph node, unspecified; C7A.1 Malignant poorly differentiated neuroendocrine tumors
CPT/HCPCS: 71260; 74160; Q9967

== ENCOUNTER 2025-04-05 19:37 | Emergency (ER) | payer MEDICARE, SELFPAY ==
[2025-04-05 19:38] VITALS: BP 156/80; PULSE 91; RESP 18; TEMP 36.1; O2SAT 92
--- NOTE | 2025-04-05 19:55 | CT_ITS ---
PROCEDURE: SPINE LUMBAR WITH CONTRAST 04/05/2025 REASON FOR EXAM: BACK PAIN WITH LEFT RADICULOPATHY, HX OF BONE METS TECHNIQUE: SPINE LUMBAR WITH CONTRAST One or more dose reduction techniques were used (e.g., Automated exposure control, adjustment of the mA and/or kV according to patient size, use of iterative reconstruction technique). RADIATION DOSE SUMMARY: CTDlvol: 14.5 mGy DLP: 540 mGycm COMPARISON: CT abdomen and pelvis 02/17/2025 FINDINGS: There are 5 [id number] lumbar-type vertebral bodies. Lumbar vertebral body heights and alignment are maintained. Heterogeneous sclerotic marrow throughout, most pronounced at L2, similar to CT on 02/17/2025. The L4 spinous process is slightly indistinct. Mild multilevel disc height loss, endplate osteophyte formation, and facet arthrosis. There is mild osseous neural foraminal narrowing bilaterally at L4-5 and L5-S1. No significant osseous spinal canal narrowing at any level. Numerous hypodensities throughout the liver, similar to prior. Aortic atherosclerosis with fusiform ectasia measuring up to 2.3 cm, also unchanged. CT/Spine Lumbar WITH Contrast IMPRESSION: 1. Heterogeneous and sclerotic appearance of the lumbar spine bone marrow, sim ilar to prior and in keeping with known osseous metastatic disease. 2. Indistinct appearance of the L4 spinous process may represent early destruc tive changes, likely also related to osseous metastatic disease. 3. Mild multilevel degenerative changes of the lumbar spine at worst at L4-5 a nd L5-S1 where there is mild osseous neural foraminal narrowing bilaterally. No significant osseous spinal canal narrowing at any level. Reading Location: [id number]
--- NOTE | 2025-04-05 19:57 | EX.ED.DYSGE1 ---
HPI History of Present Illness Chief Complaint: Lower Extremity Injury Detail of Chief Complaint: Back pain and left leg pain Informant: patient Narrative Narrative: Patient presents the emergency department complaint of left low back pain that radiates to her left leg to just above the knee. She has had pain for 2 months or so but just not as severe. She had an injection in her back by pain management at the end of January. Recently worsening pain over the last 2 weeks. She took oxycodone at home and was not helping her pain. At times she feels like her left leg wants to give out. 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 Patient scheduled to start immunotherapy tomorrow. She tells me she is in remission. She denies any falls or injuries to her back. She denies loss of bowel or bladder function. She denies significant weakness in the extremity. [facility] Medical History Cancer Difficulty swallowing Hypothyroidism GERD (gastroesophageal reflux disease) Chest pain Encounter for chemotherapy management Internal hemorrhoids Current use of steroid medication Ambulates with cane Back pain On home oxygen therapy High grade neuroendocrine carcinoma of lung Jaundice Regional lymph node metastasis present Metastasis to bone Small cell lung cancer Loss of hearing Wears glasses Wears dentures Post-menopausal Thyroid disease Arthritis High cholesterol DVT (deep venous thrombosis) Injury of back Migraine headache Syncope History of hiatal hernia History of ulceration History of diverticulitis Former smoker Asthma CPAP (continuous positive airway pressure) dependence Leg cramps Shortness of breath on exertion History of pain when walking Hypertension Heart murmur History of echocardiogram History of stress test Cardiology follow-up encounter Bradycardia Chronic respiratory failure with hypoxia Smoking greater than 40 pack years Pulmonary hypertension Bronchiectasis History of staph infection Hypoxia Home Medications ?Medication ?Instructions ?Recorded ?Last Taken ?Type levothyroxine 25 mcg tablet 25 mcg PO DAILY thyroid 11/03/17 02/16/25 05:30 History gabapentin 400 mg capsule 400 mg PO TID nerve pain 07/16/20 02/16/25 05:30 History Disability Placard #1 ea 09/15/20 Unknown Rx potassium citrate 10 mEq (1,080 20 meq PO DAILY potassium 01/26/22 12/11/24 History mg) tablet,extended release albuterol sulfate 90 mcg/actuation 2 puff inhalation Q4H PRN 06/13/23 Unknown History aerosol inhaler shortness of breath or wheezing fluticasone propionate 50 1 spray intranasal DAILY PRN nasal 05/28/24 Unknown History mcg/actuation nasal congestion spray,suspension (Flonase Allergy Relief) losartan 25 mg tablet 25 mg PO DAILY blood pressure 11/12/24 02/16/25 05:30 History ondansetron HCl 8 mg tablet 8 mg PO Q8H PRN nausea and vomiting 11/24/24 01/09/25 History docusate sodium 100 mg capsule 100 mg PO BID PRN constipation 12/11/24 Unknown History omeprazole 40 mg capsule,delayed 40 mg PO BID gerd 12/11/24 02/16/25 05:30 History release lidocaine-prilocaine 2.5 %-2.5 % 1 applic topical ONCE PRN port 12/15/24 Unknown Rx topical cream access 30 days #30 grams prochlorperazine maleate 10 mg 10 mg PO Q6H PRN nausea and 12/15/24 01/07/25 Rx tablet vomiting #30 tabs mirtazapine 15 mg tablet 15 mg PO QHS sleep #30 tabs 12/29/24 01/08/25 Rx oxycodone 10 mg tablet 10 mg PO Q4H PRN pain 01/09/25 02/16/25 05:30 History furosemide 20 mg tablet 20 mg PO DAILY PRN leg 01/10/25 Unknown Rx swelling/SOB #30 tabs Allergy/AdvReac Type Severity Reaction Status Date / Time DAVID Inhibitors Allergy Rash Verified 04/05/25 19:38 codeine Allergy Vomiting Verified 04/05/25 19:38 walnut Allergy Food Verified 04/05/25 19:38 Allergy prednisone AdvReac Other Verified 04/05/25 19:38 Bidxmgs-UDF-TfI Reductase AdvReac cramps Verified 04/05/25 19:38 Inhibitor (Jrxonvr-Nsd-Fgf Reductase Inhibitor) Family History Mother Cancer Hx Lung CA. Father Cancer Hx Lung CA. Surgical History History of vascular access device Hx of right cataract extraction Hx of left cataract extraction Hx of breast reconstruction Hx of foot surgery Hx of surgical amputation of finger Hx of elbow surgery History of carpal tunnel surgery Hx of vein stripping History of cholecystectomy History of back surgery History of eye surgery History of breast biopsy History of tubal ligation History of History of appendectomy History of tonsillectomy Social History household members: spouse Smoking Status: Former smoker quit date: 08/17/16 Tobacco: How many years used: 45 alcohol intake: never ROS ROS ED Review of Systems ROS Unobtainable: other Constitutional Constitutional ED: Reports lethargy; Denies chills, fever(s), sweats or weight loss Eyes Eyes: Denies blurry vision, change in vision or diplopia ENT ENT ED: Denies rhinorrhea or sore throat Cardiovascular Cardiovascular: Denies chest pain, orthopnea or racing heartbeat Respiratory/Chest Respiratory/Chest: Denies cough, dyspnea, dyspnea on exertion, orthopnea or sputum Gastrointestinal Gastrointestinal: Denies abdominal pain, diarrhea, nausea or vomiting Genitourinary Genitourinary ED: Denies dysuria, hematuria or urinary frequency Musculoskeletal Musculoskeletal: Reports back pain and other Details: Left leg pain ; Denies arthralgias, myalgias or neck pain Integumentary Denies abscess, Abrasions or rash Neurologic Neurologic: Denies headache(s) or weakness Psychiatric Psychiatric: Denies anxiety, depression or suicidal thoughts Endocrine Endocrinology: Denies polydipsia, polyphagia or polyuria Hematologic/Lymphatic Hematologic/Lymphatic: Denies easy bleeding, easy bruising or lymphadenopathy Allergic/Immunologic Allergic/Immunologic ED: Denies mouth swelling, tongue swelling or urticaria EXAM Physical Exam Const Vital Signs: 04/05/25 19:38 04/05/25 21:36 Temperature 97 F L Temperature Source Temporal Pulse Rate 91 75 Respiratory Rate 18 14 Blood Pressure 156/80 H 147/74 H Blood Pressure Mean 105 98 Pulse Ox 92 99 Oxygen Delivery Method Room Air Room Air Positive well nourished and well developed General Appearance ED: well developed and NAD HEENT Reports TM's clear and moist mucous membranes normocephalic and atraumatic; Negative for trauma or tenderness Tympanic Membrane ED: Yes TM's clear Eyes PERRL and EOMs intact bilaterally General Eye ED: Negative for pale conjunctiva or scleral icterus Neck no lymphadenopathy, supple and no JVD General: Negative for tenderness Chest Wall inspection of chest normal and palpation of chest normal Chest: Negative for tenderness Resp normal respiratory effort and clear to auscultation bilaterally Effort and Inspection: Negative for respiratory distress or pain with movement Auscultation: Negative for rhonchi, wheezes or diminished lung sounds Cardio regular rate, regular rhythm, S1 normal heart sound, S2 normal heart sound and no murmurs Peripheral Pulses: pulses 2+ throughout GI normal to inspection, nondistended, normoactive bowel sounds, soft to palpation, non-tender, non-distended and no masses Back/Spine no CVA tenderness and no thoracic nor lumbar tenderness Back/Spine Narrative: Old scar to lumbar spine from prior microdiscectomy. No erythema or warmth noted to the back. Negative straight leg raise on the right. Positive straight leg raise on the left while seated at about 45 degrees. Deep tendon reflexes plus 2 out of 4 bilaterally at the patella and Achilles. Patient has normal without extension bilaterally. Extremity normal to inspection General Extremety ED: Negative for edema General Extremity: Negative for edema Neuro oriented x3, CN's II-XII intact bilaterally, no sensory deficits noted and gait normal Sensorium / Orientation: awake, alert, oriented to person, oriented to place and oriented to time Motor Exam: strength 5/5 throughout and strength abnormal Psych mental status grossly normal Skin no rashes or lesions noted and no wounds MDM MDM MDM Narrative Medical decision making narrative: Patient presents with couple months worth of back pain. Has small cell cancer with mets to the liver bone and brain. Complaining of pain in her left low back that radiates to her left leg to about the knee. Clinically looks well. IV line established. She was medicated with Dilaudid and Zofran. CBC with differential showed a white count of 5.8 with hemoglobin 8.6 and platelet count of 134. Chemistries unremarkable. I did obtain a CT scan of the lumbar spine with IV contrast that showed heterogenous sclerotic marrow throughout most pronounced at L2 similar to CT on 02/17/2025. L4 spinous process is slightly indistinct. There is mild multilevel disc height loss endplate osteophyte formation and facet arthrosis. There is mild osseous neuroforaminal narrowing bilaterally at L4-5 and L5-S1. No significant osseous spinal canal narrowing at any level. There is numerous hypodensities throughout the liver similar to prior. There was aortic atherosclerosis with fusiform ectasia measuring up to 2.3 cm also unchanged. I discussed results with patient and her son. Shared medical decision making. She required a second dose of Dilaudid to help manage her pain and had good pain relief with that. Offered admission for pain control and further imaging such as MRI to rule out acute disc bulge versus nerve impingement related to metastatic disease potentially. Patient tells me she has an appointment tomorrow morning to get her first infusion of immunotherapy and does not want to miss that. She is feeling markedly improved after treatment in the emergency department. She understands that I feel that the next imaging study to do would be an MRI which could potentially be done as an outpatient or if her pain persist or worsen she is to return to the emergency department for admission. At this time there are no signs or symptoms of cauda equina. Patient would prefer to go home to make her immunotherapy appointment and will return for worsening pain. Lab Data Attestation: I reviewed the patient's lab results. Labs: Laboratory Results - last 24 hr 04/05/25 20:11 WBC 5.8 RBC 2.60 L Hgb 8.6 L Hct 25.5 L MCV 98.1 MCH 33.1 H MCHC 33.7 RDW Std Deviation 59.0 H RDW Coeff of Brittanie 16.9 H Plt Count 134 L MPV 11.2 Immature Gran % (Auto) 0.700 Neut % (Auto) 68.9 Lymph % (Auto) 11.0 L Dane % (Auto) 18.4 H Eos % (Auto) 0.5 Baso % (Auto) 0.5 Absolute Neuts (auto) 4.0 Absolute Lymphs (auto) 0.63 L Nucleated RBC % 0 Sodium 140 Potassium 3.3 Chloride 103 Carbon Dioxide 23.7 Anion Gap 14 BUN 6 Creatinine 0.91 Estim Creat Clear Calc 51.80 Est GFR (MDRD) Non-Af 68 BUN/Creatinine Ratio 6.2 L Glucose 127 H Calcium 9.8 Radiography Diagnostic Testing: Clinical Impression(s) from Imaging Studies Lumbar Spine CT 04/05/25 19:55 IMPRESSION: 1. Heterogeneous and sclerotic appearance of the lumbar spine bone marrow, similar to prior and in keeping with known osseous metastatic disease. 2. Indistinct appearance of the L4 spinous process may represent early destructive changes, likely also related to osseous metastatic disease. 3. Mild multilevel degenerative changes of the lumbar spine at worst at L4-5 and L5-S1 where there is mild osseous neural foraminal narrowing bilaterally. No significant osseous spinal canal narrowing at any level. Reading Location: [facility] Discharge Plan Triage Chief Complaint: Lower Extremity Injury ED Provider: Juan Lynch Dx/Rx/DC Orders Clinical Impression: Back pain, Acute lumbar radiculopathy Instructions: ED Back Pain (Acute or Chronic), ED Sciatica Prescriptions: No Action (DME) Disability Placard See Rx Instructions .Route .MEDSUPPLY Qty: 1 0RF Rx Instructions: Expires 09/09/2025 albuterol sulfate 90 mcg/actuation HFA aerosol inhaler 2 puff inhalation Q4H PRN (Reason: shortness of breath or wheezing) ondansetron HCl 8 mg tablet 8 mg PO Q8H PRN (Reason: nausea and vomiting) mirtazapine 15 mg tablet 15 mg PO QHS Qty: 30 3RF levothyroxine 25 MCG tablet 25 mcg PO DAILY gabapentin 400 MG capsule 400 mg PO TID potassium citrate 10 mEq (1,080 mg) tablet extended release 20 meq PO DAILY Patient Comments: pt unsure if she takes this medication fluticasone propionate [Flonase Allergy Relief] 50 mcg/actuation spray,suspension 1 spray intranasal DAILY PRN (Reason: nasal congestion) Rx Instructions: administer into each nostril losartan 25 mg tablet 25 mg PO DAILY omeprazole 40 MG capsule,delayed release(DR/EC) 40 mg PO BID docusate sodium 100 mg Capsule 100 mg PO BID PRN (Reason: constipation) Rx Instructions: Hold for diarrhea oxycodone 10 mg tablet 10 mg PO Q4H PRN (Reason: pain) furosemide 20 mg tablet 20 mg PO DAILY PRN (Reason: leg swelling/SOB) Qty: 30 0RF lidocaine-prilocaine 2.5-2.5 % cream 1 applic topical ONCE PRN (Reason: port access) 30 Days Qty: 30 2RF prochlorperazine maleate 10 mg tablet 10 mg PO Q6H PRN (Reason: nausea and vomiting) Qty: 30 2RF Primary Care Provider: Fabricio Lemos Referrals: Fabricio Lemos MD [Primary Care Provider] - 3-5 Days Activity Restrictions/Additional Instructions: Recommend you follow-up with your primary care physician to order outpatient MRI of lumbar spine. Return to the ER for worsening pain, weakness in extremities, loss of bowel or bladder function, or condition worsen anyway. Print Language: Irish Disposition Disposition: Home, Self Care
--- OUTSIDE RECORDS SUMMARY | 2025-04-05 20:04 | XMS RPT_ITS | CCD ---
Author Organization [facility] Care Team Providers Care Civil Celebrant Name Role Phone TAVALLAEE, TONI MONAZZAM Attending Unav ailable TAVALLAEE, TONI MONAZZAM Attending Unav ailable TAVALLAEE, TONI MONAZZAM Attending Unav ailable TAVALLAEE, TONI MONAZZAM Attending Unav ailable TAVALLAEE, TONI MONAZZAM Attending Unav ailable Dr. Fabricio Lemos Primary Care Provider Dr. Fabricio Lemos Referring Provider [phone] Patricia DICKEY, BLANKET WASHER-C Roxann Attending Provider [phone] Girish Lemos MD Primary Care Provider Girish Lemos MD Primary Care Provider Girish Lemos MD Primary Care Provider Dr. Fabricio Lemos Primary Care Provider Dr. Fabricio Lemos Referring Provider Patricia BLANKET WASHER, BLANKET WASHER-C Roxann Attending Provider Dr. Fabricio Lemos Primary Care Provider [phone] Dr. Fabricio Lemos Referring Provider Patricia DICKEY BLANKET WASHER-C Roxann Attending Provider Dr. Fabricio Lemso Primary Care Provider Dr. Fabricio Lemos Referring Provider [phone] Dr. Tobias Gonsalves Attending Provider Dr. Tobias Gonsalves Referring Provider Dr. Tobias Gonsalves Other Provider Dr. Sarmad Noe Attending Provider Girish Lemos MD Primary Care Provider XUAN GARCIA MD Attending Unavailabl e DUMANDAN, XUAN ERNANDEZ Primary Care Unavailabl e GIRISH LEMOS Consulting Unavailab le RADHA, XUAN ERNANDEZ Admitting Unavailabl e PROVIDER, UNKNOWN Consulting Unavailable JERRIANDAJoo, XUAN ERNANDEZ Attending Unavailabl e DUMANDAN, XUAN ERNANDEZ Primary Care Unavailabl e AMINTA, GIRISH Arnold Consulting Unavailab le DUMANDAJoo, XUAN ERNANDEZ Admitting Unavailabl e PROVIDER, UNKNOWN Consulting Unavailable DUMANDAN, XUAN ERNANDEZ Primary Care Unavailabl e DUMANDAN, XUAN ERNANDEZ Admitting Unavailabl e OLIVEIRA, AURE A Consulting Unavailable DUMANDAN, XUAN ERNANDEZ Attending Unavailabl e PROVIDER, UNKNOWN Consulting Unavailable PROVIDER, UNKNOWN Consulting Unavailable PROVIDER, UNKNOWN Consulting Unavailable Podlogar BRANCH OPERATION EVALUATION MANAGER.DIE POLISHER, Jeanette Unavailable Roxann Gomez Unavailable Silas Robbins MD Unavailable Dr. Fabricio Lemos MD Primary Care Provider Dr. Fabricio Lemos MD Referring Provider [phone] Patricia BLANKET WASHER-CRoxann Attending Provider Patricia BLANKET WASHER-CRoxann Referring Provider Austin Mack MD Emergency Provider [phone] Mae Horton DO Admit Provider Dr. Mae Horton DO Attending Provider Dr. Mae Horton DO Other Provider Dr. Alex Mercado MD Emergency Provider Dr. Alex Mercado MD Attending Provider Dr. Sherice Fernandez MD Attending Provider Audie BLANKET WASHER-C, Sharda Attending Provider Dr. Sherice Fernandez MD Referring Provider Macario ERNANDEZ, Dr. Jalloh Attending Provider Macario ERNANDEZ, Dr. Jalloh Referring Provider Macario ERNANDEZ, Dr. Jalloh Other Provider Knoble BRANCH OPERATION EVALUATION MANAGER.DIE POLISHER, Oleg Unavailable Knoble BRANCH OPERATION EVALUATION MANAGER.DIE POLISHER, Oleg Unavailable Rachael Mattson PA-C Attending Provider Raulito ERNANDEZ, Dr. De La Rosa Admit Provider Raulito ERNANDEZ, Dr. De La Rosa Referring Provider Raulito ERNANDEZ, Dr. De La Rosa Other Provider Michi ERNANDEZ, Dr. Keene Attending Provider Vickey ERNANDEZ, Dr. Hancock Attending Provider Michi ERNANDEZ, Dr. Keene Other Provider GIRIHS LEMOS Primary Care Unavailab le KNOBLE, OLEG Referring Unavailable GIRISH LEMOS Primary Care Unavailab le KNOBLEOLEG Referring Unavailable PODLOGJEANETTE GIBBONS Attending Unavailable GIRISH LEMOS Primary Care Unavailab le GIRISH LEMOS Attending Unavailab le GIRISH LEMOS Primary Care Unavailab le GIRISH LEMOS Primary Care Unavailab le BRIANOBLEOLEG Referring Unavailable GIRISH LEMOS Primary Care Unavailab GIRISH Levi Referring Unavailab le GIRISH LEMOS Primary Care Unavailab le GIRISH LEMOS Referring Unavailab le ABRAMSILAS CHIN Attending Unavailable GIRISH LEMOS Primary Care Unavailab le GIRISH LEMOS Attending Unavailab le GIRISH LEMOS Attending Unavailab le GIRISH LEMOS Primary Care Unavailab le ABRAMSILAS CHIN Referring Unavailable GIRISH LEMOS Attending Unavailab le GIRISH LEMOS Primary Care Unavailab le PODLOGJEANETTE GIBBONS Attending Unavailable GIRISH LEMOS Primary Care Unavailab le PODLOGARJEANETTE Referring Unavailable BURSLEY, CHRISTOPHER B Primary Care Unavailab le BURSLEY, CHRISTOPHER B Referring Unavailab le BURSLEY, CHRISTOPHER B Primary Care Unavailab le BURSLEY, CHRISTOPHER B Primary Care Unavailab le DIAMOND, OLEG Attending Unavailable BURSLEY, CHRISTOPHER B Primary Care Unavailab le KNOBLE, OLEG Referring Unavailable BURSLEY, CHRISTOPHER B Primary Care Unavailab le BURSLEY, CHRISTOPHER B Attending Unavailab victor hugo Polo MD, Dr. Conawy Attending Provider Aminta ERNANDEZ, Dr. Regalado Primary Care Provider Aminta ERNANDEZ, Dr. Regalado Referring Provider Patricia BLANKET WASHER-C, Roxann Attending Provider Patricia BLANKET WASHER-C, Roxann Referring Provider Austin Mack MD Emergency Provider Clifford EM, Dr. Wall Admit Provider Dr. Mae Horton DO Attending Provider Dr. Mae Horton DO Other Provider Rogelio ERNANDEZ, Dr. Johnson Attending Provider Rogelio ERNANDEZ, Dr. Johnson Emergency Provider Jim ERNANDEZ, Dr. Smiley Attending Provider Audie BLANKET WASHER-C, Sharda Attending Provider Dr. Sherice Fernandez MD Referring Provider Dr. Yeimi Sorto MD Attending Provider Dr. Yeimi Sorto MD Referring Provider Dr. Yeimi Sorto MD Other Provider Twila DOBBINS, Rachael Attending Provider Raulito ERNANDEZ, Dr. De La Rosa Admit Provider Raulito ERNANDEZ, Dr. De La Rosa Referring Provider Raulito ERNANDEZ, Dr. De La Rosa Other Provider Dr. Jassi Borden MD Attending Provider Dr. Man Polo MD Attending Provider Vickey ERNANDEZ, Dr. Hancock Attending Provider Michi ERNANDEZ, Dr. Keene Other Provider Shun ERNANDEZ, Dr. Bernardo Attending Provider Shun ERNANDEZ, Dr. Bernardo Referring Provider [phone] Aminta ERNANDEZ, Dr. Regalado Primary Care Provider Patricia BLANKET WASHER-C, Roxann Referring Provider Aminta ERNANDEZ, Dr. Regalado Referring Provider [phone] Twila DOBBINS, Rachael Attending Provider Frederick ERNANDEZ, Austin Emergency Provider Shun ERNANDEZ, Dr. Bernardo Attending Provider [phone] Shun ERNANDEZ, Dr. Bernardo Referring Provider Mae Horton Attending Unavailable Mae Horton Admitting Unavailable Bursley, Fabricio Primary Care Unavailable Az Hoffmann Referring Unavailable Az Hoffmann Attending Unavailable Bursley, Fabricio Primary Care Unavailable Gomez BLANKET WASHER, Roxann Referring Unavailable Gomez BLANKET WASHER, Roxann Attending Unavailable Bursley, Fabricio Primary Care Unavailable Mae Horton Attending Unavailable Mae Horton Admitting Unavailable Clifford Mae Consulting Unavailable Bursley, Fabricio Primary Care Unavailable Cabezas, Estrella Consulting Unavailable Jassi Borden Attending Unavailable Bursley, Fabricio Primary Care Unavailable Cabezas, Estrella Referring Unavailable Cabezas, Estrella Admitting Unavailable Michi Jassi Consulting Unavailable Audie BLANKET WASHER, Sharda Attending Unavailable Bursley, Fabricio Primary Care Unavailable Bursley, Fabricio Referring Unavailable Gomez BLANKET WASHER, Roxann Attending Unavailable Gomez BLANKET WASHER, Roxann Referring Unavailable Bursley, Fabricio Primary Care Unavailable Bursley, Fabricio Primary Care Unavailable Robotham, Yeimi Consulting Unavailable Robotham, Yeimi Attending Unavailable Robotham, Yeimi Referring Unavailable Isckarus, Mansour Attending Unavailable Isckarus, Mansour Referring Unavailable Bursley, Fabricio Primary Care Unavailable Gomez BLANKET WASHER, Roxann Attending Unavailable Gomez BLANKET WASHER, Roxann Referring Unavailable Bursley, Fabricio Primary Care Unavailable Estrella Cabezas Attending Unavailable Man Polo Attending Unavailable Bursley, Fabricio Primary Care Unavailable Estrella Cabezas Referring Unavailable Bursley, Fabricio Primary Care Unavailable Santi Hurd Attending Unavailable Matthew Garza Attending Unavailabl e Bursley, Fabricio Primary Care Unavailable Bursley, Fabricio Referring Unavailable Isckarus, Mansour Attending Unavailable Bursley, Fabricio Primary Care Unavailable Audie BLANKET WASHER, Sharda Attending Unavailable Bursley, Fabricio Primary Care Unavailable Bursley, Fabricio Referring Unavailable Bursley, Fabricio Primary Care Unavailable Robotham, Yeimi Attending Unavailable Robotham, Yeimi Referring Unavailable Isckarus, Mansour Attending Unavailable Isckarus, Mansour Referring Unavailable Bursley, Fabricio Primary Care Unavailable Bursley, Fabricio Referring Unavailable Isckarus, Mansour Attending Unavailable Bursley, Fabricio Primary Care Unavailable Gomez BLANKET WASHER, Roxann Referring Unavailable Gomez BLANKET WASHER, Roxann Attending Unavailable Bursley, Fabricio Primary Care Unavailable Alex Mercado Attending Unavailable Bursley, Fabricio Primary Care Unavailable Estrella Cabezas Admitting Unavailable Bursley, Fabricio Primary Care Unavailable Jassi Borden Attending Unavailable Estrella Cabezas Consulting Unavailable Estrella Cabezas Referring Unavailable Az Hoffmann Referring Unavailable Az Hoffmann Attending Unavailable Bursley, Fabricio Primary Care Unavailable Isckarus, Mansour Referring Unavailable Isckarus, Mansour Attending Unavailable Bursley, Fabricio Primary Care Unavailable Bursley, Fabricio Primary Care Unavailable Robotham, Yeimi Attending Unavailable Bursley, Fabricio Referring Unavailable Bursley, Fabricio Referring Unavailable Bursley, Fabricio Primary Care Unavailable Isckarus, Carmellaour Attending Unavailable Audie BLANKET WASHER, Sharda Attending Unavailable Bursley, Fabricio Referring Unavailable Bursley, Fabricio Primary Care Unavailable Bursley, Fabricio Referring Unavailable Bursley, Fabricoi Primary Care Unavailable Rachael Charles Attending Unavailable Bursley, Fabricio Referring Unavailable Isckarus, Mansour Attending Unavailable Bursley, Fabricio Primary Care Unavailable Audie BLANKET WASHER, Sharda Attending Unavailable Bursley, Fabricio Primary Care Unavailable Bursley, Fabricio Referring Unavailable Gomez BLANKET WASHER, Roxann Referring Unavailable Isckarus, Mansour Attending Unavailable Bursley, Fabricio Primary Care Unavailable Gomez BLANKET WASHER, Roxann Attending Unavailable Bursley, Fabricio Referring Unavailable Bursley, Fabricio Primary Care Unavailable Patricia BLANKET WASHER, Roxann Attending Unavailable Fabricio Lemos Referring Unavailable Fabricio Lemos Primary Care Unavailable Diamond BAI, Oleg Unavailable Allergies Allergy Classification Reported Allergen(s) Allergy Type Date of Onset Reaction(s) Facility (20 sources) Angiotensin Converting Enzyme (Meagan) Inhibitors; Translations: [MEAGAN INHIBITORS] Allergy to substance 8 Rash [facility] Work Phone: (20 sources) Codeine; Translations: [CODEINE] Drug Allergy 8 Vomiting, Other: See Comments [facility] Work Phone: (14 sources) predniSONE Drug Allergy 2 Other [facility] Comment on above: patient does not rec all the reaction, just states she can't take prednisone. (20 sources) walnut allergenic extract; Translations: [WALNUT] Drug Allergy 8 Unknown [facility] (15 sources) Ggwwyvo-Efz-Cvz Reductase Inhibitor; Translations: [Wjurwln-Hod-Ia a Reductase Inhibitor] Propensity to adverse reactions 2 [facility] (20 sources) ezetimibe; Translations: [EZETIMIBE] Drug Allergy 1 Myalgia [facility] Work Phone: (2 sources) HMG-CoA reductase inhibitor; Translations: [GDIQXSD-JVR-ML A REDUCTASE INHIBITORS] Drug Intolerance 8 Myalgia [facility] Work Phone: (20 sources) Mirtazapine; Translations: [MIRTAZAPINE] Drug Allergy 1 Other: See Comments [facility] Work Phone: (20 sources) HMG-CoA reductase inhibitor Drug Intolerance 8 Myalgia [facility] Work Phone: (1 source) Codeine Drug Allergy [facility]ository (1 source) Codeine Drug Allergy 5 [facility] (1 source) predniSONE Drug Allergy 5 [facility] (1 source) walnut Drug allergy (disorder) 5 [facility] Medications Current Medications Medication Drug Class(es) Dates Sig (Normalized) Sig (Original) [id number] 200 actuat albuterol 0.09 mg/actuat metered dose inhaler (20 sources) beta2-Adrenergic Agonist Start: 06-13-2023 Albuterol Sulfate 90 mcg/actuation HFA aerosol inhaler Active 2 NMA INHALATION Q4H as needed for shortness of breath or wheezing June 13, 2023 12:00am Start: 06-13-2023 Start: 06-13-2023 take 1 puff(s) by in [...] 5-15minutes. 10/06/2020 Active Start: 09-15-2020 End: 05-09-2022 take 2.5 mg by inhalation every four hours as needed for wheezing Albuterol Sulfate 2.5 mg /3 mL (0.083 %) solution for nebulization Discontinued 2.5 mg INHALATION Q4H as needed for Sob &/Or Wheezing 180 3 September 15, 2020 1:00am May 09, 2022 10:15am Start: 09-15-2020 End: 05-09-2022 Comment on above: Use 3 mL via nebuliz er every 4 hours as needed for Wheezing/Shortness of Breath. Use over 5-15minutes. bempedoic acid 180 mg oral tablet (20 sources) Start: 05-15-20 End: 11-03-19 NEXLETOL 180 mg tablet once daily. 05/15/2023 Active Comment on above: once daily. benzonatate 100 mg oral capsule (4 sources) Non-narcotic Antitussive Start: 01-27-20 End: 02-06-20 take 1 capsule by mouth three times daily as needed benzonatate (TESSALON PERLE) 100 mg capsule Indications: Viral URI with cough Take 1 capsule by mouth three times a day as needed for up to 10 days. 30 capsule 01/26/2025 02/05/2025 Active Disability Placard (11 sources) Start: 09-15-20 Disability Placard Active 0 .Route .MEDSUPPLY 1 September 15, 2020 2:55pm Expires 09/09/2025 Start: 09-15-2020 Disability Yvette card Active 0 .Route .MEDSUPPLY 1 0 September 15, 2020 1:00am September 09, 2025 1:00am chronic respiratory distress J96.10 Expires 09/09/2025 Start: 09-15-2020 Disability Yvette card Active 0 .Route .MEDSUPPLY 1 September 15, 2020 1:00am September 09, 2025 1:00am Expires 09/09/2025 Start: 09-15-2020 Disability Yvette card Active 0 .Route .MEDSUPPLY 1 September 15, 2020 1:00am Expires 09/09/2025 Start: 09-15-2020 Disability Yvette card Active 0 .Route .MEDSUPPLY September 15, 2020 12:00am Expires 09/09/2025 docusate sodium 100 mg oral capsule (17 sources) Start: 11-14-2024 End: 12-11-2024 take 1 capsule by mouth twice daily as needed for constipation Docusate Sodium 100 mg Capsule Active 100 mg PO TWICE A DAY as needed for constipation December 11, 2024 12:00am Hold for diarrhea enteric contrast (will be provided with radiology [...] nasal spray (20 sources) Corticosteroid Start: 05-28-2024 take 50 ug nasal route once daily as needed Fluticasone Propionate (Flonase Allergy Relief) 50 mcg/actuation spray,suspension Active 1 NMA INTRANASAL DAILY as needed for nasal congestion May 28, 2024 12:00am administer into each nostril Start: 03-23-2022 End: 07-15-2024 take 2 spray(s) by mouth once daily fluticasone (FLONASE) 50 mcg/actuation nasal spray Indications: Non-seasonal allergic rhinitis, unspecified trigger Use 2 Sprays in each nostril once daily. Rinse mouth after use. 1 Each 5 07/15/2024 Active Comment on above: Use 2 Sprays in each nostril once daily. Rinse mouth after use. furosemide 20 mg oral tablet (20 sources) Loop Diuretic Start: 01-10-2025 take 1 tablet by mouth once daily as needed Furosemide 20 mg tablet Active 20 mg PO DAILY as needed for leg swelling/SOB 30 January 10, 2025 2:32pm Start: 08-17-2020 End: 05-17-2021 take 1 tablet by mouth twice daily Furosemide 20 MG tablet Discontinued 20 mg PO TWICE A DAY 20 August 17, 2020 1:00am May 17, 2021 11:18am Start: 08-17-2020 End: 05-17-2021 gabapentin 400 mg oral capsule (20 sources) Anti-epileptic Agent Start: 07-16-2020 take 1 capsule by mouth three times daily Gabapentin 400 MG capsule Active 400 mg PO THREE TIMES A DAY July 16, 2020 12:00am nerve pain take 1 capsule by mouth twice da [...] Each 10/16/2024 10/17/2024 Active levothyroxine sodium 0.025 mg oral tablet (20 sources) l-Thyroxine Start: 11-03-2017 End: 02-11-2025 take 1 tablet by mouth once daily levothyroxine (SYNTHROID) 25 mcg tablet Indications: Acquired hypothyroidism Take 1 tablet by mouth once daily. 14 tablet 02/11/2025 Active Comment on above: Take 1 tablet by trina th once daily. 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 45 tablet 1 03/31/2025 09/27/2025 Active Start: 11-12-2024 take 1 tablet by trina th once daily Losartan 25 mg tablet Active 25 mg PO DAILY November 12, 2024 1:00am blood pressure Start: 08-19-2024 End: 02-15-2025 take 1 tablet by mouth once daily Losartan 50 mg tablet Discontinued 50 mg PO daily November 03, 2024 1:00am November 12, 2024 2:12pm Start: 08-23-2021 End: 11-03-2024 take 1 tablet by mouth once daily Losartan 25 mg tablet Discontinued 25 mg PO DAILY May 28, 2024 12:00am November 03, 2024 12:18pm Start: 07-16-2020 End: 08-17-2020 take 1 tablet by mouth once daily Losartan 100 MG tablet Discontinued 100 mg PO DAILY July 16, 2020 12:00am August 17, 2020 1:10pm bp Start: 07-16-2020 End: 05-28-2024 Losartan 100 MG tablet Disco ntinued 25 mg PO DAILY 0 0 August 17, 2020 1:10pm May 28, 2024 11:54am bp Start after 3 days. Hold for SBP less than 120 mmHg Start: 07-16-2020 End: 05-28-2024 Comment on above: Take 1 tablet by trina th once daily. minoxidil 20 mg/ml topical solution (20 sources) Arteriolar Vasodilator Start: 1 Minoxidil 2 % external solution Indications: Thinning hair Apply 1 mL to affected area twice daily. 120 mL 1 11/17/2020 Active Comment on above: Apply 1 mL to affect ed area twice daily. mirtazapine 15 mg oral tablet (6 sources) Start: 5 take 1 tablet by mouth at bedtime Mirtazapine 15 mg tablet Active 15 mg PO AT BEDTIME 30 December 29, 2024 12:00am Disturbance in sleep behavior Sleep disorder, unspecified sleep Start: 12-29-2024 mv,jaci,iron,mn/folic acid/ch ol (PZXU-JCBL-CWJGN, PABA, ORAL) (20 sources) take 1 tablet by mouth once daily mv,jaci,iron,mn/folic acid/chol (MGBJ-UNIP-XOKLM, PABA, ORAL) Take 1 tablet by mouth once daily. Active take 1 tablet by mouth once nica y mv,jaci,iron,mn/folic acid/chol (XXDA-DONR-ODMQH, PABA, ORAL) Take 1 tablet by mouth once daily. 0 Active Comment on above: Take 1 tablet by trina th once daily. omeprazole 40 mg delayed release oral capsule (20 sources) Proton Pump Inhibitor Start: 0 End: 5 take 1 capsule by mouth once daily Omeprazole 40 MG capsule,delayed release(DR/EC) Discontinued 40 mg PO DAILY 0 0 August 17, 2020 1:10pm December 11, 2024 8:31am gerd Start: 07-02-2019 End: 08-17-2020 take 1 capsule by mouth twice daily Omeprazole 40 MG capsule,delayed release(DR/EC) Active 40 mg PO TWICE A DAY December 11, 2024 12:00am gerd Comment on above: Take 1 capsule by mo uth twice daily. 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 Other diseases of mediastinum, not elsewhere classified Start: 11-15-2024 End: 12-02-2024 take 1 tablet by mouth every four hours as needed for pain Oxycodone 5 mg tablet Discontinued 5 mg PO Q4H as needed for pain 120 30 0 November 15, 2024 December 02, 2024 1:20pm 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 Other diseases of mediastinum, not elsewhere classified Start: 11-15-2024 End: 12-02-2024 take 1 tablet by mouth twice daily, then take 1 tablet by mouth every hour Oxycodone (Oxycontin) 10 mg tablet,oral only,ext.rel.12 hr Discontinued 10 mg PO TWICE A DAY 60 30 0 November 15, 2024 December 02, 2024 1:20pm 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 0 Active Pnv No.313-Mz-Bh5-Dha-Epa-Fi sh ( Gummies) 400 mcg-35 mg- 25 mg-5 mg tablet,chewable (11 sources) Start: 01-05-2022 take 2 tablets by mouth once daily Pnv No.666-Gp-Ub1-Fye-Lka-Mgtt ( Gummies) 400 mcg-35 mg- 25 mg-5 mg tablet,chewable Active 2 TABLET PO DAILY January 05, 2022 1:15pm Start: 01-05-2022 End: 09-04-2022 Pnv No.070-Rj-Fy0-Dha-Epa-Fi sh ( Gummies) 400 mcg-35 mg- 25 mg-5 mg tablet,chewable Discontinued 2 {tbl} PO DAILY January 05, 2022 12:00am September 04, 2022 1:49pm Start: 01-05-2022 End: 09-04-2022 take 2 tablets by mouth once daily Pnv No.039-Ez-Kw0-Bdd-Zwn-Rcke ( Gummies) 400 mcg-35 mg- 25 mg-5 mg tablet,chewable Discontinued 2 TABLET PO DAILY January 05, 2022 12:00am September 04, 2022 1:49pm Start: 01-05-2022 End: 09-04-2022 take 2 tablets by mouth once daily Pnv No.913-Vh-Da2-Gnc-Tvs-Xkaa ( Gummies) 400 mcg-35 mg- 25 mg-5 [...] tablet (20 sources) Start: 07-16-2020 End: 01-26-2022 take 1 tablet by mouth once daily Potassium Citrate 10 mEq (1,080 mg) tablet extended release Active 20 meq PO DAILY January 26, 2022 1:17pm potassium Start: 07-16-2020 End: 01-26-2022 take 4 tablets by mouth once daily Potassium Citrate 10 MEQ tablet extended release Discontinued 40 meq PO DAILY July 16, 2020 12:00am January 26, 2022 1:19pm potassium Start: 07-16-2020 End: 01-26-2022 take 40 mEq by mouth once daily Potassium Citrate Disc ontinued 40 MEQ PO DAILY July 16, 2020 12:00am January 26, 2022 1:19pm prochlorperazine 10 mg oral tablet (6 sources) Phenothiazine Start: 12-15-2024 take 1 tablet by mouth every six hours as needed for nausea and vomiting Prochlorperazine Maleate 10 mg tablet Active 10 mg PO EVERY 6 HOURS as needed for nausea and vomiting December 15, 2024 12:00am Chemotherapy-induced nausea and vomiting Nausea with vomiting, unspecified Adverse effect of antineoplastic and immunosuppressive drugs, initial encounter Jylrgfx-Nqcb-Paeqf-Or eg-Capryl (4 sources) Start: 01-05-2022 take 2 capsules by mouth once daily Csgdobd-Jtbj-Wydae-Oreg- Capryl Active 2 CAP PO DAILY January 05, 2022 1:15pm Start: 01-05-2022 End: 05-09-2022 take 2 capsules by mouth once daily Nnfsjnr-Uqin-Biglh-Oreg-Capryl Discontin ued 2 CAP PO DAILY January 05, 2022 12:00am May 09, 2022 10:07am Start: 01-05-2022 End: 05-09-2022 take 2 capsules by mouth once daily Jeamdaf-Vgdg-Gwwez-Oreg-Capryl Discontin ued 2 CAP PO DAILY January 04, 2022 11:00pm May 09, 2022 9:07am Vitamin B Complex (B Complex-Vitamin B12) tablet (11 sources) Start: 01-05-2022 take 1 tablet by [...] sources) Opioid Agonist Start: 05-28-2024 End: 11-24-2024 Hydrocodone-Acetami nophen 5-325 mg tablet Discontinued 1 - 1.5 {tbl} PO THREE TIMES A DAY May 28, 2024 12:00am November 24, 2024 3:29pm pain Start: 05-28-2024 End: 11-24-2024 Start: 11-03-2017 End: 08-17-2020 Hydrocodone-Acetaminophen 1 EACH tablet Discontinued 1 {tbl} PO THREE TIMES A DAY as needed for Pain Score 1-10 November 03, 2017 1:00am August 17, 2020 1:05pm Start: 11-03-2017 End: 08-17-2020 Start: 11-03-2017 End: 08-17-2020 take 1 tablet [...] needed for pain. acetaminophen 325 mg / oxyCODONE hydrochloride 5 mg oral tablet (14 sources) Opioid Agonist Start: 09-15-2020 End: 05-28-2024 Oxycodone-Acetaminophen 5-325 mg tablet Discontinued 1 {tbl} PO Q8H as needed for Pain 0 September 15, 2020 1:00am May 28, 2024 11:57am Start: 09-15-2020 End: 05-28-2024 Start: 09-15-2020 take 1 tablet by trina th every eight hours Oxycodone-Acetaminophen Active 1 TABLET PO Q8H September 15, 2020 1:00am albuterol 0.833 mg/ml / ipratropium bromide 0.167 mg/ml inhalation solution (13 sources) Anticholinergic, beta2-Adrenergic Agonist Start: 05-09-2022 End: 11-12-2024 take 1 mL by inhalation every four hours as needed for wheezing Ipratropium-Albuterol 0.5 mg-3 mg(2.5 mg base)/3 mL solution for nebulization Discontinued 3 mL INHALATION Q4H as needed for shortness of breath or wheezing 180 0 May 09, 2022 12:00am November 12, 2024 2:13pm Start: 05-09-2022 End: 11-12-2024 Start: 05-09-2022 take 1 mL by inhalat ion every four hours Ipratropium-Albuterol Active 3 ML INHALATION Q4H 180 May 09, 2022 12:00am allopurinol 300 mg oral tablet (8 sources) Xanthine Oxidase Inhibitor Start: 11-24-2024 End: 12-11-2024 take 1 tablet by mouth once daily Allopurinol 300 mg tablet Discontinued 300 mg PO daily 7 0 November 24, 2024 12:00am December 11, 2024 8:20am amoxicillin 875 mg / clavulanate 125 mg oral tablet (14 sources) Penicillin-class Antibacterial Start: 11-17-2021 End: 05-09-2022 take 1 tablet by mouth every twelve hours Amoxicillin-Pot Clavulanate 875 MG tablet Discontinued 875 mg PO Q12H 14 7 0 November 17, 2021 1:00am May 09, 2022 10:05am apixaban 5 mg oral tablet (20 sources) Factor Xa Inhibitor Start: 08-17-2020 End: 05-17-2021 take 1 tablet by mouth twice daily Apixaban 5 mg tablet Discontinued 5 mg PO TWICE A DAY 60 4 September 15, 2020 3:08pm May 17, 2021 11:18am COVID-19 azithromycin 250 mg oral tablet (9 sources) Macrolide Antimicrobial Start: 09-02-2024 End: 11-03-2024 take 2-5 tablets by mouth once daily Azithromycin 250 mg tablet Discontinued 0 PO .COMPLEX 6 0 September 02, 2024 1:00am November 03, 2024 12:18pm take 500 mg today (day 1), then 250 mg for 4 days (days 2-5) PO Calcium (6 sources) Phosphate Binder, Calcium Start: 05-28-2024 End: 01-09-2025 take 1 capsule by mouth once daily Calcium 600 mg capsule Discontinued 600 mg PO DAILY May 28, 2024 12:00am January 09, 2025 7:05pm supplement Start: 05-28-2024 End: 01-09-2025 take 1 capsule by mouth once daily Calcium 600 mg capsule Discontinued 600 mg PO DAILY May 28, 2024 12:00am January 09, 2025 7:05pm Start: 05-28-2024 take 1 capsule by mo [facility] once daily Calcium 600 mg capsule Active 600 mg PO DAILY May 28, 2024 12:00am calcium carbonate 1500 mg oral tablet (20 sources) Start: 01-09-2025 End: 02-11-2025 take 1 tablet by mouth once daily Calcium Carbonate (Calcium 600) 600 mg calcium (1,500 mg) tablet Discontinued 600 mg PO DAILY January 09, 2025 12:00am February 11, 2025 2:58pm suppliment take 1000 mg by mouth once daily calcium carbonate (CALCIUM 500 ORAL) Take 1,000 mg by mouth once daily. Active Comment on above: [facility] cholecalciferol 0.025 mg oral capsule (20 sources) Vitamin D Start: 11-12-19 End: 02-12-20 take 1 capsule by mouth once daily Cholecalciferol (Vitamin D3) (Vitamin D3) 25 mcg (1,000 unit) capsule Discontinued 25 ug PO DAILY November 12, 2024 1:00am February 11, 2025 2:58pm vitamin Start: 05-17-2021 End: 11-12-2024 take 1 capsule by mouth once daily Cholecalciferol (Vitamin D3) 125 mcg (5,000 unit) capsule Discontinued 125 ug PO DAILY May 17, 2021 12:00am November 12, 2024 2:12pm clotrimazole 10 mg/ml topical cream (7 sources) Azole Antifungal Start: 08-22-2022 End: 10-08-2022 clotrimazole (LOTRIMIN, CLOTRIM) 1 % cream Indications: Ringworm of body Apply to affected area twice daily. 24 g 0 09/08/2022 10/08/2022 Comment on above: Apply to affected ar ea twice daily. dexamethasone 1 mg oral tablet (14 sources) Corticosteroid Start: 12-29-2024 End: 12-29-2024 take 1 tablet by mouth once daily Dexamethasone 1 mg tablet Discontinued 1 mg PO daily December 29, 2024 12:00am December 29, 2024 2:22pm Start: 12-11-2024 End: 12-12-2024 take 1 tablet by mouth once in the morning Dexamethasone 1 mg tablet Discontinued 1 mg PO .Q AM December 11, 2024 12:00am December 12, 2024 10:48am doxycycline hyclate 100 mg oral tablet (14 sources) Tetracycline-class Drug Start: 11-17-2021 End: 05-09-2022 take 1 tablet by mouth twice daily Doxycycline Hyclate 100 mg tablet Discontinued 100 mg PO TWICE A DAY 20 10 0 November 17, 2021 1:00am May 09, 2022 10:05am Fluad Quad (65yr up)(PF) 60 mcg (15 mcg x 4)/0.5mL IM syringe (flu vac (1 source) Start: 06-28-2021 End: 06-28-2021 Fluad Quad (65yr up)(PF) 60 mcg (15 mcg x 4)/0.5mL IM syringe (flu vac Discontinued 60 MCG IM ONCE 0.5 June 28, 2021 9:36am June 28, 2021 10:15am hydroCHLOROthiazide 25 mg oral tablet (20 sources) Thiazide Diuretic Start: 07-16-2020 End: 05-17-2021 take 1 tablet by mouth once daily Hydrochlorothiazide 25 MG tablet Discontinued 25 mg PO DAILY 0 0 August 17, 2020 1:10pm May 17, 2021 11:17am bp Hold HCTZ while the patient is on Lasix INV VITAMIN D3 5000 UNITS CAPSULE (IRB [...] completed) Start: 05-17-2021 take 1 capsule by mo [facility] once daily, then take 1 capsule by mouth once daily INV VITAMIN D3 5000 UNITS CAPSULE (IRB 19-1548) Take 1 capsule by mouth once daily. For Investigational Drug Use Only. PI: Krystin Rodrigues, PhD. Take one capsule by mouth daily for 3 months prior to surgery and 3 months after surgery. 90 capsule 3 05/17/2021 Active Comment on above: Take 1 capsule by [facility] once daily. For Investigational Drug Use Only. PI: Krystin Rodrigues, PhD. Take one capsule by mouth daily for 3 months prior to surgery and 3 months after surgery. levoFLOXacin 750 mg oral tablet (13 sources) Quinolone Antimicrobial Start: 09-04-20 End: 09-11-20 take 1 tablet by mouth every twenty-four hours Levofloxacin 750 mg tablet Discontinued 750 mg PO Q24H 7 7 0 September 04, 2022 1:00am September 10, 2022 1:00am September 11, 2022 1:04am mv,calcium,min/iron/ folic/vitK (ONE-A-DAY WOMEN'S COMPLETE ORAL) (9 [...] on above: Take 2 capsules by m [facility] once daily. nystatin 700599 unt/ml oral suspension (8 sources) Polyene Antifungal Start: 11-24-2024 End: 12-11-2024 take 1 mL by mouth four times daily Nystatin 100,000 unit/mL suspension Discontinued 10 mL PO .QID 250 7 1 November 24, 2024 12:00am December 11, 2024 8:26am swish and swallow Start: 11-24-2024 End: 12-11-2024 nystatin 100 unt/mg / triamcinolone acetonide 0.001 mg/mg topical ointment (5 sources) Polyene Antifungal, Corticosteroid Start: 07-24-2022 End: 08-22-2022 nystatin-triamcinolone (MYCOLOG) ointment Apply sparingly to perineum twice daily for irritation/infection. 30 g 0 07/24/2022 08/22/2022 Discontinued (Course of therapy completed) Comment on above: Apply sparingly to p erineum twice daily for irritation/infection. 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 red yeast rice 600 mg oral tablet (20 sources) Start: 2 End: take 1 tablet by mouth once daily Red Yeast Rice 600 mg tablet Discontinued 600 mg PO DAILY January 26, 2022 12:00am May 28, 2024 11:55am give with meal/snack End: 01-08-2024 take 2 tablets by mouth once daily red yeast rice 600 mg tab Take 2 tablets by mouth once daily. 01/08/2024 Discontinued (Course of therapy completed) Comment on above: Take 2 tablets by mo [facility] once daily. sertraline 50 mg oral tablet (9 sources) Serotonin Reuptake Inhibitor Start: 1 End: 2 take 1 tablet by mouth once daily sertraline (ZOLOFT) 50 mg tablet Indications: Anxiety with depression Take 1 tablet by mouth once daily. 30 tablet 2 04/20/2021 08/22/2022 Discontinued (Other) Comment on above: Take 1 tablet by trina once daily. traZODone hydrochloride 50 mg oral tablet (6 sources) Serotonin Reuptake Inhibitor Start: 5 End: 5 take 1 tablet by mouth at bedtime Trazodone 50 mg tablet Discontinued 50 mg PO AT BEDTIME December 29, 2024 12:00am December 29, 2024 2:50pm Start: 12-29-2024 End: 12-29-2024 Kaxplfpk-Wobv-Arskt-Oreg-Cap ry (1 source) Start: 01-05-2022 End: 05-09-2022 take 2 capsules by mouth once daily Rphxznas-Vlhg-Libvz-Oreg-Capry Discontinued 2 CAP PO DAILY January 05, 2022 12:00am May 09, 2022 10:07am Bzskryxz-Ijlg-Bahmt-Oreg-Cap ry 100 mg-150 mg- 50 mg-150 mg capsule (6 sources) Start: 01-05-2022 End: 05-09-2022 take 1 capsule by mouth once daily Uyutqjmj-Nfoo-Bovac-Oreg-Capry 100 mg-150 mg- 50 mg-150 mg capsule Discontinued 2 NMA PO DAILY January 05, 2022 12:00am May 09, 2022 10:07am (18 sources) Start: 11-03-2024 End: 11-12-2024 Start: 05-28-2024 End: 01-09-2025 Start: 01-05-2022 End: 09-04-2022 Start: 01-05-2022 End: 09-04-2022 Start: 01-05-2022 End: 05-09-2022 Start: 09-15-2020 Problems Active Problems Problem Classification Problem Date Documented Da te Episodic/Chronic Acquired foot deformities (1 source) Hammer toe; Translations: [Other hammer toe(s) (acquired), left foot] Chronic Anxiety disorders (20 sources) Mixed anxiety and depressive disorder; Translations: [Other specified anxiety disorders] Onset: 1 04-20-2021 Chronic Asthma (8 sources) Asthma; Translations: [Unspecified asthma, uncomplicated] 11-24-2024 [...] lobes. Chronic obstructive pulmonary disease and bronchiectasis (14 sources) Bronchitis; Translations: [Bronchitis, not specified as [...] Translations: [Gross hematuria] Episodic Heart valve disorders (8 sources) Heart murmur; Translations: [Cardiac murmur, unspecified] 11-24-2024 Episodic Hemorrhoids (18 sources) Internal hemorrhoids; Translations: [Other hemorrhoids] 12-16-2024 Episodic Immunity disorders (2 sources) Patient immunocompromised; Translations: [Immunodeficiency, unspecified] Onset: 5 01-26-2025 Chronic Inflammatory diseases of female pelvic organs (1 source) Acute vaginitis; Translations: [Acute vaginitis] Episodic Influenza (20 sources) Influenza; Translations: [Influenza due to unidentified influenza virus with other respiratory manifestations] Episodic Maintenance chemotherapy; radiotherapy (12 sources) Patient encounter status; Translations: [Encounter for antineoplastic chemotherapy] 12-16-2024 Chronic Malignant neoplasm without specification of site (20 sources) Carcinoma of lung; 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] Onset: 5 11-25-2024 Chronic Menopausal disorders (1 source) Postmenopausal bleeding; Translations: [Postmenopausal bleeding] Chronic Mycoses (2 sources) Dermatophytosis; Translations: [Tinea corporis] Episodic Nausea and vomiting (15 sources) Nausea; Translations: [Nausea] Onset: 5 11-15-2021 Episodic Nonspecific chest pain (16 sources) Chest pain; Translations: [Chest pain, unspecified] Onset: 5 01-09-2025 Episodic Osteoarthritis (8 sources) Arthritis; Translations: [Unspecified osteoarthritis, unspecified site] 11-24-2024 Chronic Other circulatory disease (12 sources) Device in situ; Translations: [Presence of other vascular implants and grafts] 12-22-2024 Chronic Other connective tissue disease (1 source) Pain of toe of left foot; Translations: [Pain in left toe(s)] Episodic Other connective tissue disease (1 source) Cramp; Translations: [Cramp and spasm] 01-08-2024 Episodic Other ear and sense organ disorders (8 sources) Hearing loss; Translations: [Unspecified hearing loss, unspecified ear] 11-24-2024 Chronic Other female genital disorders (1 source) Pain in female genitalia on intercourse; Translations: [Unspecified dyspareunia] Chronic Other female genital disorders (1 source) Vulval irritation; Translations: [Other specified noninflammatory disorders of vulva and perineum] Episodic Other gastrointestinal disorders (13 sources) Acute diarrhea; Translations: [Diarrhea, unspecified] 09-21-2022 Episodic Other gastrointestinal disorders (5 sources) Diarrhea; Translations: [Diarrhea, unspecified] 11-15-2021 Episodic Other liver diseases (5 sources) Liver mass; Translations: [Hepatomegaly, not elsewhere classified] 10-17-2024 Episodic Other liver diseases (9 sources) Enzyme level - finding; Translations: [Elevated transaminase measurement] 11-23-2024 Episodic Other liver diseases (18 sources) High lipase level in serum; Translations: [Abnormal levels of other serum enzymes] 11-12-2024 Episodic Other liver diseases (20 sources) Jaundice; Translations: [Unspecified jaundice] 11-24-2024 Episodic Other liver diseases (1 source) Unspecified jaundice; Translations: [Unspecified jaundice] Onset: Episodic Other lower respiratory disease (11 sources) Fibrosis of lung; Translations: [Pulmonary fibrosis, unspecified] 03-13-2023 Chronic Other lower respiratory disease (1 source) Pulmonary fibrosis, unspecified; Translations: [Postinflammatory pulmonary fibrosis] 03-13-2023 Chronic Other lower respiratory disease (14 sources) Respiratory insufficiency; Translations: [Other abnormalities of breathing] 11-12-2021 Episodic Other lower respiratory disease (20 sources) Hypoxia; Translations: [Hypoxemia] 09-15-2020 Episodic Other lower respiratory disease (1 source) Other abnormalities of breathing; Translations: [Other respiratory abnormalities] Episodic Other lower respiratory disease (13 sources) Acute lower respiratory tract infection; Translations: [Unspecified acute lower respiratory infection] 09-21-2022 Episodic Other lower respiratory disease (1 source) Cough; Translations: [Cough] 11-15-2021 Episodic Other lower respiratory disease (1 source) Lung mass; Translations: [Other nonspecific abnormal finding of lung field] 11-12-2024 Episodic Other lower respiratory disease (15 sources) Dyspnea; Translations: [Shortness of breath] 03-13-2024 [...] Abnormal weight loss; Translations: [Weight loss] Onset: Episodic Other skin disorders (1 source) Skin [...] Onset: 4 Chronic Other upper respiratory disease (9 sources) Mediastinal mass; Translations: [Other diseases of mediastinum, not elsewhere classified] 11-03-2024 Episodic Other upper respiratory infections (3 sources) Viral upper respiratory tract infection; Translations: [Acute upper respiratory infection, unspecified] Onset: 5 01-26-2025 Episodic Pneumonia (except that caused by tuberculosis or sexually transmitted disease) (15 sources) Pneumonia; Translations: [Pneumonia, unspecified organism] 11-25-2021 Episodic Pulmonary heart disease (20 sources) Pulmonary hypertension; Translations: [Pulmonary hypertension, unspecified] Onset: 3 05-09-2022 Chronic Comment on above: Echocardiogram from February 07, 2021 estimated PASP of 30 mmHg and stage I diastolic dysfunction Residual codes; unclassified (18 sources) Obstructive sleep apnea syndrome; Translations: [Obstructive [...] [Localized edema] 12-02-2024 Episodic Residual codes; unclassified (6 sources) Disturbance in sleep behavior; Translations: [Sleep disorder, unspecified] 12-29-2024 Episodic Residual codes; unclassified (1 source) Sleep disorder, unspecified; Translations: [Sleep disorder, unspecified] Onset: Episodic Respiratory failure; insufficiency; arrest (adult) (8 sources) Chronic hypoxemic respiratory failure; Translations: [Chronic respiratory failure with hypoxia] 11-24-2024 Chronic Secondary malignancies (20 sources) Secondary malignant neoplasm of liver; 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] 11-12-2024 Chronic Secondary malignancies (9 sources) Secondary malignant neoplastic disease; Translations: [Secondary malignant neoplasm of unspecified site] 11-23-2024 Chronic Secondary malignancies (20 sources) Regional lymph node metastasis present ; Translations: [Secondary and unspecified malignant neoplasm of lymph node, unspecified] Chronic Secondary malignancies (20 sources) Secondary malignant neoplasm of bone; Translations: [Secondary malignant neoplasm of bone] 11-24-2024 Chronic Secondary malignancies (8 sources) Secondary malignant neoplasm of lymph node; Translations: [Secondary and unspecified malignant neoplasm of lymph node, unspecified] 01-13-2025 Chronic Secondary malignancies (3 sources) Secondary malignant neoplasm of bone; Translations: [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)] Onset: Chronic Secondary malignancies (3 sources) Secondary malignant neoplasm of liver and intrahepatic bile duct; Translations: [Metastasis to liver (HCC)] Onset: 5 Chronic Secondary malignancies (3 sources) Secondary and unspecified malignant neoplasm of lymph node, unspecified; Translations: [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)] Onset: Chronic Spondylosis; intervertebral disc disorders; other back problems (20 sources) Degeneration of lumbar intervertebral disc; Translations: [Other intervertebral disc degeneration, lumbar region] 05-16-2018 Chronic Spondylosis; intervertebral disc disorders; other back problems (20 sources) Chronic back pain ; Translations: [Dorsalgia, unspecified] Onset: 05-16-2018 Episodic Substance-related disorders (20 sources) Cigarette smoker ; Translations: [Nicotine dependence, cigarettes, uncomplicated] Chronic Comment on above: smoker 1 ppd for 45 yearsquit 2015, due in January 2025 and previously ordered Thyroid disorders (20 sources) Hypothyroidism; Translations: [Hypothyroidism, unspecified] Onset: 8 11-14-2017 Chronic Thyroid disorders (8 sources) Disorder of thyroid gland; Translations: [Disorder of thyroid, unspecified] 11-24-2024 Episodic Comment on above: ON MED Unclassified (9 sources) High grade neuroendocrine carcinoma of lung; Translations: [C7A.1 - Malignant poorly differentiated neuroendocrine tumors] Unclassified (4 sources) Malignant neoplasm metastatic to bone Unclassified (3 sources) 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 Unclassified (5 sources) C34.12 - Malignant neoplasm of upper lobe, left bronchus or lung,C79.51 - Secondary malignant neoplasm of bone,C77.9 - Secondary and unspecified malignant neoplasm of lymph node, unspecified,C78.7 - Secondary malignant neoplasm of liver and intrahepatic bile duct Unclassified (5 sources) C7A.1 - Malignant poorly differentiated neuroendocrine tumors,C79.51 - Secondary malignant neoplasm of bone,C77.9 - Secondary and unspecified malignant neoplasm of lymph node, unspecified Unclassified (3 sources) C34.12 - Malignant neoplasm of upper lobe, left bronchus or lung,C79.51 - Secondary malignant neoplasm of bone,C7A.1 - Malignant poorly differentiated neuroendocrine tumors,C77.9 - Secondary and unspecified malignant neoplasm of lymph node, unspecified,C78.7 - Secondary malignant neoplasm of liver and intrahepatic bile duct Viral infection (15 sources) Disease caused by 2019-nCoV; Translations: [COVID-19] 09-15-2020 Episodic Past or Other Problems Problem Classification Problem Date Documented Da te Episodic/Chronic Abdominal pain (20 sources) Generalized abdominal pain; Translations: [Generalized abdominal pain] Onset: 10-16-2024 10-16-2024 Episodic Diabetes mellitus without complication (5 sources) Prediabetes; Translations: [Prediabetes] Onset: 07-15-2024 Episodic Immunizations and screening for infectious disease (5 sources) Suspected disease caused by 2019-nCoV; Translations: [Suspected COVID-19 virus infection] Onset: 07-15-2024 Episodic Malaise and fatigue (1 source) Weakness; Translations: [Weakness] Onset: 12-04-2024 Episodic Other aftercare (1 source) Encounter for adjustment and management of vascular access device; Translations: [Encounter for adjustment and management of vascular access device] Onset: 12-16-2024 Episodic Other gastrointestinal disorders (1 source) Diarrhea, [...] malignant neoplasm of breast] Onset: 10-17-2024 Episodic Other upper respiratory disease (2 sources) Other diseases of mediastinum, not elsewhere classified; Translations: [Other diseases of mediastinum, not elsewhere classified] Onset: 11-15-2024 Episodic Pulmonary heart disease (20 sources) Acute pulmonary embolism; Translations: [Other pulmonary embolism without acute cor pulmonale] Onset: 01-24-2023 Episodic Residual codes; unclassified (1 source) Localized edema; Translations: [Localized edema] Onset: 12-10-2024 Episodic Results Test Name Value Interpretation Reference Range Facility Absolute lymphocyte countOrd ered By: Sherice Fernandez on 03-16-2025 Lymphocytes Auto (Unsp spec) [#/Vol] 1.00 10*3/uL 0.83-4.51 [facility]red [facility] Neutrophils (Bld) [#/Vol] 3.2 10*3/uL 2.0-7.7 [facility] Anion gap in Serum or Plasma Ordered By: Sherice Fernandez on 03-16-2025 Anion gap [Moles/Vol] 12 mmol/L 5-15 [facility] Automated lymphocyte count a s percentage of total leukocytesOrdered By: Sherice Fernandez on 03-16-2025 Lymphocytes/100 WBC Auto (Unsp spec) 18.6 % Low 19-41 [facility] BUN/creatinine ratioOrdered By: [facility] Jim on 03-16-2025 Urea nitrogen/Creatinine [Mass ratio] 8.4 mg/mg Low 10-20 [facility] Basophil percentageOrdered B y: Sherice Fernandez on 03-16-2025 Basophils/100 WBC (Bld) 0.6 % 0-1 [facility] Bilirubin, totalOrdered By: Sherice Fernandez on 03-16-2025 Bilirubin [Mass/Vol] 0.31 mg/dL 0.00-1.30 [facility] CBC W/Diff, Automatedon 02-17 Absolute Lymph 1.00 X10 3/uL Normal 0.83-4.51 [facility] Comment on above: Performed By: #### L 501.2300, L501.5200, L100.0100, L501.9520, L506.0400, L500.4050 ####[facility] [address] [place], [address] Absolute Neut 3.2 X10 3/uL Normal 2.0-7.7 [facility] Comment on above: Performed By: #### L 501.2300, L501.5200, L100.0100, L501.9520, L506.0400, L500.4050 ####[facility] [address] [place], [address] Basophils/100 WBC (Bld) 0.6 % Normal 0-1 [facility] Comment on above: Performed By: #### L 501.2300, L501.5200, L100.0100, L501.9520, L506.0400, L500.4050 ####[facility] [address] [place], [address] Eosinophils/100 WBC (Bld) 0.9 % Normal 0-5 [facility] Comment on above: Performed By: #### L 501.2300, L501.5200, L100.0100, L501.9520, L506.0400, L500.4050 ####[facility] [address] [place], [address] Erythrocyte distribution width (RBC) [Ratio] 17.6 % High 11.6-14.6 [facility] Comment on above: Performed By: #### L 501.2300, L501.5200, L100.0100, L501.9520, L506.0400, L500.4050 ####[facility] [address] [place], [address] Hematocrit (Bld) [Volume fraction] 28.4 % Low 37-47 [facility] Comment on above: Performed By: #### L 501.2300, [id number], L100.0100, L501.9520, L506.0400, L500.4050 ####[facility] [address] [place], [address] Hemoglobin (Bld) [Mass/Vol] 9.5 g/dL Low 12.0-15.0 [facility] Comment on above: Performed By: #### L 501.2300, [id number], L100.0100, L501.9520, L506.0400, L500.4050 ####[facility] [address] [place], [address] IG% 0.700 Normal 0.0-0.9 [facility] Comment on above: Result Comment: IG% - Immature Granulocytes (promyelocytes, myelocytes andmetamyelocytes) > 1% indicates that a LEFT SHIFT is Present. Performed By: #### L 501.2300, L501.5200, L100.0100, L501.9520, L506.0400, L500.4050 ####[facility] [address] [place], [address] Lymphocytes/100 WBC (Bld) 18.6 % Low 19-41 [facility] Comment on above: Performed By: #### L 501.2300, [id number], L100.0100, L501.9520, L506.0400, L500.4050 ####[facility] [address] [place], [address] MCH (RBC) [Entitic mass] 33.0 pg High 27.0-32.0 [facility] Comment on above: Performed By: #### L 501.2300, [id number], L100.0100, L501.9520, L506.0400, L500.4050 ####[facility] [address] [place], [address] MCHC (RBC) [Mass/Vol] 33.5 g/dL Normal 32-36 [facility] Comment on above: Performed By: #### L 501.2300, [id number], L100.0100, L501.9520, L506.0400, L500.4050 ####[facility] [address] [place], [address] MCV (RBC) [Entitic vol] 98.6 fL Normal 81-99 [facility] Comment on above: Performed By: #### L 501.2300, L501.5200, L100.0100, L501.9520, L506.0400, L500.4050 ####[facility] [address] [place], [address] Monocytes/100 WBC (Bld) 19.9 % High 0-10 [facility] Comment on above: Performed By: #### L 501.2300, L501.5200, L100.0100, L501.9520, L506.0400, L500.4050 ####[facility] [address] [place], [address] Neutrophils/100 WBC (Bld) 59.3 % Normal 47-70 [facility] Comment on above: Performed By: #### L 501.2300, L501.5200, L100.0100, L501.9520, L506.0400, L500.4050 ####[facility] [address] [place], [address] Nucleated RBC (Bld) [#/Vol] 0 10*3/uL Normal 0-5 [facility] Comment on above: Performed By: #### L 501.2300, L501.5200, L100.0100, L501.9520, L506.0400, L500.4050 ####[facility] [address] [place], [address] Platelet mean volume (Bld) [Entitic vol] 10.5 fL Normal 6.2-12.0 [facility] Comment on above: Performed By: #### L 501.2300, L501.5200, L100.0100, L501.9520, L506.0400, L500.4050 ####[facility] [address] [place], [address] Platelets (Bld) [#/Vol] 192 10*3/uL Normal 150-450 [facility] Comment on above: Performed By: #### L 501.2300, L501.5200, L100.0100, L501.9520, L506.0400, L500.4050 ####[facility] [address] [place], [address] RBC (Bld) [#/Vol] 2.88 10*6/uL Low 4.2-5.4 [facility] Comment on above: Performed By: #### L 501.2300, L501.5200, L100.0100, L501.9520, L506.0400, L500.4050 ####[facility] [address] [place], [address] RDW SD 64.3 fl High 35.1-43.9 [facility] Comment on above: Performed By: #### L 501.2300, L501.5200, L100.0100, L501.9520, L506.0400, L500.4050 ####[facility] [address] [place], [address] WBC (Bld) [#/Vol] 5.4 10*3/uL Normal 4.4-11.0 [facility] Comment on above: Performed By: #### L 501.2300, L501.5200, L100.0100, L501.9520, L506.0400, L500.4050 ####[facility] [address] [place], [address] Carbon dioxide, total [Moles /volume] in Central venous bloodOrdered By: Sherice Fernandez on 03-16-2025 CO2 [Moles/Vol] 22.1 mmol/L 21.0-32.0 [facility] Chloride assayOrdered By: Melva Fernandez on 03-16-2025 Chloride [Moles/Vol] 105 mmol/L 98-108 [facility] Comprehensive Metabolic Prof ilon 03-16-2025 Albumin [Mass/Vol] 3.8 g/dL Normal 3.4-4.8 [facility] Comment on above: Performed By: #### L 501.2300, L501.5200, L100.0100, L501.9520, L506.0400, L500.4050 ####[facility] [address] [place], [address] Albumin/Globulin [Mass ratio] 1.3 {ratio} Normal 0.9-2.4 [facility] Comment on above: Performed By: #### L 501.2300, L501.5200, L100.0100, L501.9520, L506.0400, L500.4050 ####[facility] [address] [place], [address] ALK PHOS 158 U/L High 35-104 [facility] Comment on above: Performed By: #### L 501.2300, L501.5200, L100.0100, L501.9520, L506.0400, L500.4050 ####[facility] [address] [place], [address] ALT [Catalytic activity/Vol] 19 U/L Normal <=34 [facility] Comment on above: Performed By: #### L 501.2300, L501.5200, L100.0100, L501.9520, L506.0400, L500.4050 ####[facility] [address] [place], [address] AST [Catalytic activity/Vol] 73 U/L High <=31 [facility] Comment on above: Performed By: #### L 501.2300, L501.5200, L100.0100, L501.9520, L506.0400, L500.4050 ####[facility] [address] [place], [address] Bilirubin [Mass/Vol] 0.31 mg/dL Normal 0.00-1.30 [facility] Comment on above: Performed By: #### L 501.2300, L501.5200, L100.0100, L501.9520, L506.0400, L500.4050 ####[facility] [address] [place], [address] BUN/CRE 8.4 RATIO Low 10-20 [facility] Comment on above: Performed By: #### L 501.2300, L501.5200, L100.0100, L501.9520, L506.0400, L500.4050 ####[facility] [address] [place], [address] Calcium [Mass/Vol] 9.8 mg/dL Normal 7.6-11.0 [facility] Comment on above: Performed By: #### L 501.2300, L501.5200, L100.0100, L501.9520, L506.0400, L500.4050 ####[facility] [address] [place], [address] Chloride [Moles/Vol] 105 mmol/L Normal 98-108 [facility] Comment on above: Performed By: #### L 501.2300, L501.5200, L100.0100, L501.9520, L506.0400, L500.4050 ####[facility] [address] [place], [address] CO2 [Moles/Vol] 22.1 mmol/L Normal 21.0-32.0 [facility] Comment on above: Performed By: #### L 501.2300, L501.5200, L100.0100, L501.9520, L506.0400, L500.4050 ####[facility] [address] [place], [address] Creatinine [Mass/Vol] 0.85 mg/dL Normal 0.70-1.20 [facility] Comment on above: Performed By: #### L 501.2300, L501.5200, L100.0100, L501.9520, L506.0400, L500.4050 ####[facility] [address] [place], [address] ECRCL 56.03 ml/min Normal 50-250 [facility] Comment on above: Performed By: #### L 501.2300, L501.5200, L100.0100, L501.9520, L506.0400, L500.4050 ####[facility] [address] [place], [address] GAP 12 Normal 5-15 [facility] Comment on above: Performed By: #### L 501.2300, L501.5200, L100.0100, L501.9520, L506.0400, L500.4050 ####[facility] [address] [place], [address] GFR/1.73 sq M.predicted among non-blacks MDRD (S/P/Bld) [Vol rate/Area] 74 mL/min/{1.73_m2} Normal >60 [facility] Comment on above: Result Comment: mL/m in/1.73m2 CKD-EPI Creatinine Equation (2020) Performed By: #### L 501.2300, L501.5200, L100.0100, L501.9520, L506.0400, L500.4050 ####[facility] [address] [place], [address] Globulin (S) [Mass/Vol] 3.0 g/dL Normal 2.2-4.2 [facility] Comment on above: Performed By: #### L 501.2300, L501.5200, L100.0100, L501.9520, L506.0400, L500.4050 ####[facility] [address] [place], [address] Glucose [Mass/Vol] 158 mg/dL High 70-99 [facility] Comment on above: Performed By: #### L 501.2300, L501.5200, L100.0100, L501.9520, L506.0400, L500.4050 ####[facility] [address] [place], [address] Potassium [Moles/Vol] 3.8 mmol/L Normal 3.3-5.1 [facility] Comment on above: Performed By: #### L 501.2300, L501.5200, L100.0100, L501.9520, L506.0400, L500.4050 ####[facility] [address] [place], [address] Sodium [Moles/Vol] 140 mmol/L Normal 133-145 [facility] Comment on above: Performed By: #### L 501.2300, L501.5200, L100.0100, L501.9520, L506.0400, L500.4050 ####[facility] [address] [place], [address] T PROT 6.7 g/dL Normal 5.9-8.4 [facility] Comment on above: Performed By: #### L 501.2300, L501.5200, L100.0100, L501.9520, L506.0400, L500.4050 ####[facility] [address] [place], [address] Urea nitrogen [Mass/Vol] 7 mg/dL Normal 4-19 [facility] Comment on above: Performed By: #### L 501.2300, L501.5200, L100.0100, L501.9520, L506.0400, L500.4050 ####[facility] [address] [place], [address] Eosinophil percentageOrdered By: Sherice Fernandez on 03-16-2025 Eosinophils/100 WBC (Bld) 0.9 % 0-5 [facility] Erythrocyte distribution wid th ratioOrdered By: Sherice Fernandez on 03-16-2025 Erythrocyte distribution width (RBC) [Ratio] 17.6 % High 11.6-14.6 [facility] Erythrocyte distribution wid th standard deviationOrdered By: Sherice Fernandez on 03-16-2025 Erythrocyte distribution width (RBC) [Ratio] 64.3 fl High 35.1-43.9 [facility] Glomerular filtration rate ( GFR) estimation/1.73 sq m using serum, plasma, or whole bOrdered By: Sherice Fernandez on 03-16-2025 GFR/1.73 sq M.predicted among non-blacks MDRD (S/P/Bld) [Vol rate/Area] 74 mL/min/{1.73_m2} >60 [facility] Comment on above: mL/min/1.73m2 CKD-EP I Creatinine Equation (2020) Hematocrit Auto (Bld) [Volum e fraction]Ordered By: Sherice Fernandez on 03-16-2025 Hematocrit (Bld) [Volume fraction] 28.4 % Low 37-47 [facility] Hemoglobin measurementOrdere d By: Sherice Fernandez on 03-16-2025 Hemoglobin (Bld) [Mass/Vol] 9.5 g/dL Low 12.0-15.0 [facility] Immature granulocytes/100 WB C Auto (Bld)Ordered [facility] Immature granulocytes/100 WBC (Bld) 0.700 % 0.0-0.9 [facility] Comment on above: IG% - Immature Granu locytes (promyelocytes, myelocytes and metamyelocytes) > 1% indicates that a LEFT SHIFT is Present. L509.6001on 03-16-2025 CORTISOL 9.88 ug/dL Normal 6.02-18.40 [facility] Comment on above: Performed By: #### L 509.6001 ####[facility] [address] [place], [address] Laboratory - Chemistry and C hemistry - challengeOrdered By: Sherice Fernandez on 03-16-2025 AST [Catalytic activity/Vol] 73 U/L High <32 [facility] MCV (mean corpuscular volume ) determinationOrdered By: Sherice Fernandez on 03-16-2025 MCV (RBC) [Entitic vol] 98.6 fL 81-99 [facility] Magnesiumon 03-16-2025 Magnesium [Mass/Vol] 1.5 mg/dL Normal 1.5-2.2 [facility] Comment on above: Performed By: #### L 501.2300, L501.5200, L100.0100, L501.9520, L506.0400, L500.4050 ####[facility] [address] [place], [address] Magnesium measurement (mass/ volume)Ordered By: Sherice Fernandez on 03-16-2025 Magnesium (Unsp spec) [Mass/Vol] 1.5 mg/dL 1.5-2.2 [facility] Mean corpuscular hemoglobin (MCH) determinationOrdered By: Sherice Fernandez on 03-16-2025 MCH (RBC) [Entitic mass] 33.0 pg High 27.0-32.0 [facility] Mean corpuscular hemoglobin concentration (MCHC) determinationOrdered By: Sherice Fernandez on 03-16-2025 MCHC (RBC) [Mass/Vol] 33.5 g/dL 32-36 [facility] Mean platelet volume determi nationOrdered By: Sherice Fernandez on 03-16-2025 Platelet mean volume (Bld) [Entitic vol] 10.5 fL 6.2-12.0 [facility] Monocyte percentageOrdered B y: Sherice Fernandez on 03-16-2025 Monocytes/100 WBC (Bld) 19.9 % High 0-10 [facility] Neutrophil percentageOrdered By: [facility] on 03-16-2025 Neutrophils/100 WBC (Bld) 59.3 % 47-70 [facility] Nucleated red blood cell per centageOrdered By: Sherice Fernandez on 03-16-2025 Nucleated RBC/100 WBC (Bld) [Ratio] 0 % 0-5 [facility] Oncology Visit Reporton 02-17 Oncology Visit Report Normal [facility] Phosphoruson 03-16-2025 Phosphate [Mass/Vol] 3.4 mg/dL Normal 2.7-4.5 [facility] Comment on above: Performed By: #### L 501.2300, L501.5200, L100.0100, L501.9520, L506.0400, L500.4050 ####[facility] [address] [place], [address] Platelet countOrdered By: Melva Fernandez on 03-16-2025 Platelets (Bld) [#/Vol] 192 10*3/uL 150-450 [facility] Potassium measurement (mass/ volume)Ordered By: Sherice Fernandez on 03-16-2025 Potassium (Unsp spec) [Mass/Vol] 3.8 mmol/L 3.3-5.1 [facility] RBC Auto (Bld) [#/Vol]Ordere d By: Sherice Fernandez on 03-16-2025 RBC (Bld) [#/Vol] 2.88 10*6/uL Low 4.2-5.4 [facility] Serum creatinine measurement (mass/volume)Ordered By: Sherice Fernandez on 03-16-2025 Creatinine [Mass/Vol] 0.85 mg/dL 0.70-1.20 [facility] Serum globulin measurementOr dered By: Sherice Fernandez on 03-16-2025 Globulin (S) [Mass/Vol] 3.0 g/dL 2.2-4.2 [facility] Serum glucose measurement (m ass/volume)Ordered By: Sherice Fernandez on 03-16-2025 Glucose [Mass/Vol] 158 mg/dL High 70-99 [facility] Serum or plasma alanine encarnacion otransferase (ALT) measurementOrdered By: Sherice Fernandez on 03-16-2025 ALT [Catalytic activity/Vol] 19 U/L <35 [facility] Serum or plasma albumin jayro urement (mass/volume)Ordered By: Sherice Fernandez on 03-16-2025 Albumin [Mass/Vol] 3.8 g/dL 3.4-4.8 [facility] Serum or plasma albumin/glob ulin mass ratioOrdered By: Sherice Fernandez on 03-16-2025 Albumin/Globulin [Mass ratio] 1.3 {ratio} 0.9-2.4 [facility] Serum or plasma alkaline lukas sphatase measurementOrdered By: Sherice Fernandez on 03-16-2025 ALP [Catalytic activity/Vol] 158 U/L High 35-104 [facility] Serum or plasma calcium jayro urement (mass/volume)Ordered By: Sherice Fernandez on 03-16-2025 Calcium [Mass/Vol] 9.8 mg/dL 7.6-11.0 [facility] Serum or plasma cortisol caesar surement (mass/volume)Ordered By: Sherice Fernandez on 03-16-2025 Cortisol [Mass/Vol] 9.88 ug/dL 6.02-18.40 [facility] Serum or plasma urea nitroge n measurement (mass/volume)Ordered By: Sherice Fernandez on 03-16-2025 Urea nitrogen [Mass/Vol] 7 mg/dL 4-19 [facility] Sodium levelOrdered By: Carmella Fernandez on 03-16-2025 Sodium [Moles/Vol] 140 mmol/L 133-145 [facility] T4 Free Directon 03-16-2025 T4 FREE DIRECT 1.10 ng/dL Normal 0.76-1.46 [facility] Comment on above: Performed By: #### L 501.2300, L501.5200, L100.0100, L501.9520, L506.0400, L500.4050 ####[facility] [address] [place], [address] T4 freeOrdered By: Sherice burciaga on 03-16-2025 Free T4 [Mass/Vol] 1.10 ng/dL 0.76-1.46 [facility] TSH DL <= 0.005 mIU/L QnOrde red By: Sherice Fernandez on 03-16-2025 TSH Qn 2.960 uIU/mL 0.300-4.200 [facility] Thyroid Stim Hormone (TSH)on 03-16-2025 TSH 2.960 uIU/mL Normal 0.300-4.200 [facility] Comment on above: Performed By: #### L 501.2300, L501.5200, L100.0100, L501.9520, L506.0400, L500.4050 ####[facility] [address] [place], [place], [address] Total proteinOrdered By: Nain Smithestefany on 03-16-2025 Protein [Mass/Vol] 6.7 g/dL 5.9-8.4 [facility] White blood cell (WBC) count Ordered By: Sherice Smithestefany on 03-16-2025 WBC (Bld) [#/Vol] 5.4 10*3/uL 4.4-11.0 [facility] Absolute lymphocyte countOrd ered By: Sherice Smithestefany on 02-24-2025 Lymphocytes Auto (Unsp spec) [#/Vol] 1.24 10*3/uL 0.83-4.51 [facility] Anion gap in Serum or Plasma Ordered By: Sherice Jim on 02-24-2025 Anion gap [Moles/Vol] 11 mmol/L 5-15 [facility] Automated lymphocyte count a s percentage of total leukocytesOrdered By: Sherice Smithestefany on 02-24-2025 Lymphocytes/100 WBC Auto (Unsp spec) 18.7 % Low 19-41 [facility] BUN/creatinine ratioOrdered By: Sherice Smithestefany on 02-24-2025 Urea nitrogen/Creatinine [Mass ratio] 15.8 mg/mg 10-20 [facility] Basophil percentageOrdered B y: Sherice Smithestefany on 02-24-2025 Basophils/100 WBC (Bld) 0.6 % 0-1 [facility] Bilirubin, totalOrdered By: Sherice Smithestefany on 02-24-2025 Bilirubin [Mass/Vol] 0.24 mg/dL Normal 0.00-1.30 [facility] Comment on above: Performed By: #### L 100.0100, L506.0400, L501.9520, L500.4050, L501.5200, L501.2300 ####[facility] [address] [place], [place], [address] CBC W/Diff, AutomatedOrdered By: Sherice Jim on 02-24-2025 Anisocytosis Ql (Bld) 13 Normal [facility] Comment on above: Performed By: #### L 100.0100, L506.0400, L501.9520, L500.4050, L501.5200, L501.2300 ####[facility] [address] [place], [address] CBC W/Diff, Automatedon 06- PLT EST A Normal ADEQ [facility] Comment on above: Performed By: #### L 100.0100, L506.0400, L501.9520, L500.4050, L501.5200, L501.2300 ####[facility] [address] [place], [address] RED CELL MORPH NORM C+C Normal NORM C C [facility] Comment on above: Performed By: #### L 100.0100, L506.0400, L501.9520, L500.4050, L501.5200, L501.2300 ####[facility] [address] [place], [place], [address] Carbon dioxide, total [Moles /volume] in Central venous bloodOrdered By: Sherice Fernandez on 02-24-2025 CO2 [Moles/Vol] 24.1 mmol/L Normal 21.0-32.0 [facility] Comment on above: Performed By: #### L 100.0100, L506.0400, L501.9520, L500.4050, L501.5200, L501.2300 ####[facility] [address] [place], [place], [address] Chloride assayOrdered By: Melva Fernandez on 02-24-2025 Chloride [Moles/Vol] 104 mmol/L Normal 98-108 [facility] Comment on above: Performed By: #### L 100.0100, L506.0400, L501.9520, L500.4050, L501.5200, L501.2300 ####[facility] [address] [place], [address] Comprehensive Metabolic Prof ilon 02-24-2025 ALK PHOS 155 U/L High 35-104 [facility] Comment on above: Performed By: #### L 100.0100, L506.0400, L501.9520, L500.4050, L501.5200, L501.2300 ####[facility] [address] [place], [address] AST [Catalytic activity/Vol] 43 U/L High <=31 [facility] Comment on above: Performed By: #### L 100.0100, L506.0400, L501.9520, L500.4050, L501.5200, L501.2300 ####[facility] [address] [place], [address] BUN/CRE 15.8 RATIO Normal 10-20 [facility] Comment on above: Performed By: #### L 100.0100, L506.0400, L501.9520, L500.4050, L501.5200, L501.2300 ####[facility] [address] [place], [address] ECRCL 59.36 ml/min Normal 50-250 [facility] Comment on above: Performed By: #### L 100.0100, L506.0400, L501.9520, L500.4050, L501.5200, L501.2300 ####[facility] [address] [place], [address] GAP 11 Normal 5-15 [facility] Comment on above: Performed By: #### L 100.0100, L506.0400, L501.9520, L500.4050, L501.5200, L501.2300 ####[facility] [address] [place], [address] Potassium [Moles/Vol] 3.9 mmol/L Normal 3.3-5.1 [facility] Comment on above: Performed By: #### L 100.0100, L506.0400, L501.9520, L500.4050, L501.5200, L501.2300 ####[facility] [address] [place], [place], [address] T PROT 6.6 g/dL Normal 5.9-8.4 [facility] Comment on above: Performed By: #### L 100.0100, L506.0400, L501.9520, L500.4050, L501.5200, L501.2300 ####[facility] [address] [place], [place], [address] Eosinophil percentageOrdered By: Sherice Fernandez on 02-24-2025 Eosinophils/100 WBC (Bld) 0.6 % 0-5 [facility] Erythrocyte distribution wid th ratioOrdered By: Sherice Fernandez on 02-24-2025 Erythrocyte distribution width (RBC) [Ratio] 20.3 % High 11.6-14.6 [facility] Erythrocyte distribution wid th standard deviationOrdered By: [facility] on 02-24-2025 Erythrocyte distribution width (RBC) [Ratio] 74.4 fl High 35.1-43.9 [facility] Erythrocyte morphology asses smentOrdered By: Sherice Fernandez on 02-24-2025 RBC morphology finding Nom (Bld) NORM C+C NORMAL NORM C&C [facility] Glomerular filtration rate ( GFR) estimation/1.73 sq m using serum, plasma, or whole bOrdered By: Sherice Fernandez on 02-24-2025 GFR/1.73 sq M.predicted among non-blacks MDRD (S/P/Bld) [Vol rate/Area] 78 mL/min/{1.73_m2} Normal >60 [facility] Comment on above: Result Comment: mL/m in/1.73m2 CKD-EPI Creatinine Equation (2020) Performed By: #### L 100.0100, L506.0400, L501.9520, L500.4050, L501.5200, L501.2300 ####[facility] [address] [place], [address] Hematocrit Auto (Bld) [Volum e fraction]Ordered By: Sherice Fernandez on 02-24-2025 Hematocrit (Bld) [Volume fraction] 31.1 % Low 37-47 [facility] Hemoglobin measurementOrdere d By: Sherice Fernandez on 02-24-2025 Hemoglobin (Bld) [Mass/Vol] 10.1 g/dL Low 12.0-15.0 [facility] Immature granulocytes/100 WB C Auto (Bld)Ordered By: [facility] on 02-24-2025 Immature granulocytes/100 WBC (Bld) 1.200 % High 0.0-0.9 [facility] MCV (mean corpuscular volume ) determinationOrdered By: Sherice Fernandez on 02-24-2025 MCV (RBC) [Entitic vol] 97.8 fL 81-99 [facility] Magnesiumon 02-24-2025 Magnesium [Mass/Vol] 1.6 mg/dL Normal 1.5-2.2 [facility] Comment on above: Performed By: #### L 100.0100, L506.0400, L501.9520, L500.4050, L501.5200, L501.2300 ####[facility] [address] [place], [place], [address] Magnesium measurement (mass/ volume)Ordered By: [facility] on 02-24-2025 Magnesium (Unsp spec) [Mass/Vol] 1.6 mg/dL 1.5-2.2 [facility] Mean corpuscular hemoglobin (MCH) determinationOrdered By: Sherice Fernandez on 02-24-2025 MCH (RBC) [Entitic mass] 31.8 pg 27.0-32.0 [facility] Monocyte percentageOrdered B y: Sherice Fernandez on 02-24-2025 Monocytes/100 WBC (Bld) 18.1 % High 0-10 [facility] Neutrophil percentageOrdered By: Sherice Fernandez on 02-24-2025 Neutrophils/100 WBC (Bld) 60.8 % 47-70 [facility] No Panel InformationOrdered By: Sherice Fernandez on 02-24-2025 13 [facility] 43 U/L High <32 [facility] Oncology Visit Reporton 02-15 Oncology Visit Report Normal [facility] Phosphoruson 02-24-2025 Phosphate [Mass/Vol] 3.4 mg/dL Normal 2.7-4.5 [facility] Comment on above: Performed By: #### L 100.0100, L506.0400, L501.9520, L500.4050, L501.5200, L501.2300 ####[facility] [address] [place], [place], [address] Platelet countOrdered By: Melva Fernandez on 02-24-2025 Platelets (Bld) [#/Vol] 317 10*3/uL 150-450 [facility] Platelet estimateOrdered By: Sherice Fernandez on 02-24-2025 Platelets LM Ql (Bld) A ADEQ [facility] Potassium measurement (mass/ volume)Ordered By: Sherice Fernandez on 02-24-2025 Potassium (Unsp spec) [Mass/Vol] 3.9 mmol/L 3.3-5.1 [facility] RBC Auto (Bld) [#/Vol]Ordere d By: Sherice Fernandez on 02-24-2025 RBC (Bld) [#/Vol] 3.18 10*6/uL Low 4.2-5.4 [facility] Serum creatinine measurement (mass/volume)Ordered By: Sherice Fernandez on 02-24-2025 Creatinine [Mass/Vol] 0.81 mg/dL Normal 0.70-1.20 [facility] Comment on above: Performed By: #### L 100.0100, L506.0400, L501.9520, L500.4050, L501.5200, L501.2300 ####[facility] [address] [place], [place], [address] Serum globulin measurementOr dered By: Sherice Fernandez on 02-24-2025 Globulin (S) [Mass/Vol] 2.7 g/dL Normal 2.2-4.2 [facility] Comment on above: Performed By: #### L 100.0100, L506.0400, L501.9520, L500.4050, L501.5200, L501.2300 ####[facility] [address] [place], [place], [id number] Serum glucose measurement (m ass/volume)Ordered By: Sherice Fernandez on 02-24-2025 Glucose [Mass/Vol] 123 mg/dL High 70-99 [facility] Comment on above: Performed By: #### L 100.0100, L506.0400, L501.9520, L500.4050, L501.5200, L501.2300 ####[facility] [id number] [place], [place], [id number] Serum or plasma alanine encarnacion otransferase (ALT) measurementOrdered By: Sherice Fernandez on 02-24-2025 ALT [Catalytic activity/Vol] 17 U/L Normal <=34 [facility] Comment on above: Performed By: #### L 100.0100, L506.0400, L501.9520, L500.4050, L501.5200, L501.2300 ####[facility] [id number] [place], [place], [id number] Serum or plasma albumin jayro urement (mass/volume)Ordered By: Sherice Fernandez on 02-24-2025 Albumin [Mass/Vol] 3.9 g/dL Normal 3.4-4.8 [facility] Comment on above: Performed By: #### L 100.0100, L506.0400, L501.9520, L500.4050, L501.5200, L501.2300 ####[facility] [id number] [facility] [address] [place], [place], [id number] Serum or plasma albumin/glob ulin mass ratioOrdered By: Sherice Fernandez on 02-24-2025 Albumin/Globulin [Mass ratio] 1.4 {ratio} Normal 0.9-2.4 [facility] Comment on above: Performed By: #### L 100.0100, L506.0400, L501.9520, L500.4050, L501.5200, L501.2300 ####[facility] [id number] [place], [address] Serum or plasma alkaline lukas sphatase measurementOrdered By: Sherice Fernandez on 02-24-2025 ALP [Catalytic activity/Vol] 155 U/L High 35-104 [facility] Serum or plasma calcium jayro urement (mass/volume)Ordered By: Sherice Fernandez on 02-24-2025 Calcium [Mass/Vol] 9.4 mg/dL Normal 7.6-11.0 [facility] Comment on above: Performed By: #### L 100.0100, L506.0400, L501.9520, L500.4050, L501.5200, L501.2300 ####[facility] [address] [place], [place], [id number] Serum or plasma urea nitroge n measurement (mass/volume)Ordered By: Sherice Fernandez on 02-24-2025 Urea nitrogen [Mass/Vol] 13 mg/dL Normal 4-19 [facility] Comment on above: Performed By: #### L 100.0100, L506.0400, L501.9520, L500.4050, L501.5200, L501.2300 ####[facility] [address] [place], [address] Sodium levelOrdered By: Carmella Fernandez on 02-24-2025 Sodium [Moles/Vol] 139 mmol/L Normal 133-145 [facility] Comment on above: Performed By: #### L 100.0100, L506.0400, L501.9520, L500.4050, L501.5200, L501.2300 ####[facility] [address] [place], [place], [id number] T4 Free Directon 02-24-2025 T4 FREE DIRECT 0.80 ng/dL Normal 0.76-1.46 [facility] Comment on above: Performed By: #### L 100.0100, L506.0400, L501.9520, L500.4050, L501.5200, L501.2300 ####[facility] [address] [place], [place], [address] T4 freeOrdered By: Sherice burciaga on 02-24-2025 Free T4 [Mass/Vol] 0.80 ng/dL 0.76-1.46 [facility] TSH DL <= 0.005 mIU/L QnOrde red By: Sherice Fernandez on 02-24-2025 TSH Qn 3.640 uIU/mL 0.300-4.200 [facility] Thyroid Stim Hormone (TSH)on 02-24-2025 TSH 3.640 uIU/mL Normal 0.300-4.200 [facility] Comment on above: Performed By: #### L 100.0100, L506.0400, L501.9520, L500.4050, L501.5200, L501.2300 ####[facility] [address] [place], [place], [address] Total proteinOrdered By: Nain Fernandez on 02-24-2025 Protein [Mass/Vol] 6.6 g/dL 5.9-8.4 [facility] White blood cell (WBC) count Ordered By: Sherice Fernandez on 02-24-2025 WBC (Bld) [#/Vol] 6.6 10*3/uL 4.4-11.[address] [facility] CT Chest AND Abd W/ Contrast on 02-17-2025 CT Chest AND Abd W/ Contrast Normal [facility] Lumbar Spine 2 or 3 Viewson 02-16-2025 Lumbar Spine 2 or 3 Views Normal [facility] MR/POSTOP.ANEon 02-16-2025 MR/POSTOP.ANE Normal [facility] MR/UQLOLMRG4ts 02-16-2025 MR/POSTOPAN2 Normal [facility] Operative Reporton Operative Report Normal [facility] MR/PAT.ANEon 02-11-2025 MR/PAT.ANE Normal [facility] CBC W/Diff, Automatedon 01-16 PATH REV Reviewed Normal [facility] Comment on above: Result Comment: SEE REPORT IN PATIENT'S EMR AMENDED REPORT 02/05/25 3314 PATH REV previously reported as: January anastasia Performed By: #### L 500.2500, L100.0100 ####[facility] [address] [place], [address] Absolute lymphocyte countOrd ered By: [facility] 02-[facility]-2025 Lymphocytes Auto (Unsp spec) [#/Vol] 1.14 10*3/uL 0.83-4.51 [facility] Absolute neutrophil countOrd ered By: [facility] on 02-03-2025 Neutrophils (Bld) [#/Vol] 3.1 10*3/uL 2.0-7.7 [facility] Anion gap in Serum or Plasma Ordered By: Sherice Fernandez on 02-03-2025 Anion gap [Moles/Vol] 11 mmol/L 5-15 [facility] Automated lymphocyte count a s percentage of total leukocytesOrdered By: Sherice Fernandez on 02-03-2025 Lymphocytes/100 WBC Auto (Unsp spec) 19.9 % 19- [facility] BUN/creatinine ratioOrdered By: Sherice Fernandez on 02-03-2025 Urea nitrogen/Creatinine [Mass ratio] 8.6 mg/mg Low 10- [facility] Basophil percentageOrdered B y: Sherice Fernandez on 02-03-2025 Basophils/100 WBC (Bld) 1.9 % High 0-1 [facility] Bilirubin, totalOrdered By: Sherice Fernandez on 02-03-2025 Bilirubin [Mass/Vol] 0.41 mg/dL 0.00-1.30 [facility] CBC W/Diff, Automatedon 05-2 Anisocytosis Ql (Bld) 1+ Normal [facility] Comment on above: Performed By: #### L 100.0100, L501.5200, L500.4050, L506.0400, L501.9520, L501.2300 ####[facility] [address] [place], [address] Carbon dioxide, total [Moles /volume] in Central venous bloodOrdered By: Sherice Fernandez on 02-03-2025 CO2 [Moles/Vol] 24.1 mmol/L 21.0-32.0 [facility] Chloride assayOrdered By: Melva Fernandez on 02-03-2025 Chloride [Moles/Vol] 106 mmol/L 98-108 [facility] Comprehensive Metabolic Prof ilon 02-03-2025 Albumin [Mass/Vol] 3.4 g/dL Normal 3.4-4.8 [facility] Comment on above: Performed By: #### L 100.0100, L501.5200, L500.4050, L506.0400, L501.9520, L501.2300 ####[facility] [address] [place], [address] Albumin/Globulin [Mass ratio] 1.0 {ratio} Normal 0.9-2.4 [facility] Comment on above: Performed By: #### L 100.0100, L501.5200, L500.4050, L506.0400, L501.9520, L501.2300 ####[facility] [address] [place], [address] ALK PHOS 162 U/L High 35-104 [facility] Comment on above: Performed By: #### L 100.0100, L501.5200, L500.4050, L506.0400, L501.9520, L501.2300 ####[facility] [address] [place], [address] ALT [Catalytic activity/Vol] 10 U/L Normal <=34 [facility] Comment on above: Performed By: #### L 100.0100, L501.5200, L500.4050, L506.0400, L501.9520, L501.2300 ####[facility] [address] [place], [address] AST [Catalytic activity/Vol] 39 U/L High <=31 [facility] Comment on above: Performed By: #### L 100.0100, L501.5200, L500.4050, L506.0400, L501.9520, L501.2300 ####[facility] [address] [place], [address] Bilirubin [Mass/Vol] 0.41 mg/dL Normal 0.00-1.30 [facility] Comment on above: Performed By: #### L 100.0100, L501.5200, L500.4050, L506.0400, L501.9520, L501.2300 ####[facility] [address] [place], [address] BUN/CRE 8.6 RATIO Low 10-20 [facility] Comment on above: Performed By: #### L 100.0100, L501.5200, L500.4050, L506.0400, L501.9520, L501.2300 ####[facility] [address] [place], [address] Calcium [Mass/Vol] 9.4 mg/dL Normal 7.6-11.0 [facility] Comment on above: Performed By: #### L 100.0100, L501.5200, L500.4050, L506.0400, L501.9520, L501.2300 ####[facility] [address] [place], [address] Chloride [Moles/Vol] 106 mmol/L Normal 98-108 [facility] Comment on above: Performed By: #### L 100.0100, L501.5200, L500.4050, L506.0400, L501.9520, L501.2300 ####[facility] [address] [place], [address] CO2 [Moles/Vol] 24.1 mmol/L Normal 21.0-32.0 [facility] Comment on above: Performed By: #### L 100.0100, L501.5200, L500.4050, L506.0400, L501.9520, L501.2300 ####[facility] [address] [place], [address] Creatinine [Mass/Vol] 0.82 mg/dL Normal 0.70-1.20 [facility] Comment on above: Performed By: #### L 100.0100, L501.5200, L500.4050, L506.0400, L501.9520, L501.2300 ####[facility] [address] [place], [address] ECRCL 52.81 ml/min Normal 50-250 [facility] Comment on above: Performed By: #### L 100.0100, L501.5200, L500.4050, L506.0400, L501.9520, L501.2300 ####[facility] [address] [place], [address] GAP 11 Normal 5-15 [facility] Comment on above: Performed By: #### L 100.0100, L501.5200, L500.4050, L506.0400, L501.9520, L501.2300 ####[facility] [address] [place], [address] GFR/1.73 sq M.predicted among non-blacks MDRD (S/P/Bld) [Vol rate/Area] 77 mL/min/{1.73_m2} Normal >60 [facility] Comment on above: Result Comment: mL/m in/1.73m2 CKD-EPI Creatinine Equation (2020) Performed By: #### L 100.0100, L501.5200, L500.4050, L506.0400, L501.9520, L501.2300 ####[facility] [address] [place], [address] Globulin (S) [Mass/Vol] 3.3 g/dL Normal 2.2-4.2 [facility] Comment on above: Performed By: #### L 100.0100, L501.5200, L500.4050, L506.0400, L501.9520, L501.2300 ####[facility] [address] [place], [address] Glucose [Mass/Vol] 108 mg/dL High 70-99 [facility] Comment on above: Performed By: #### L 100.0100, L501.5200, L500.4050, L506.0400, L501.9520, L501.2300 ####[facility] [address] [place], [address] Potassium [Moles/Vol] 4.0 mmol/L Normal 3.3-5.1 [facility] Comment on above: Performed By: #### L 100.0100, L501.5200, L500.4050, L506.0400, L501.9520, L501.2300 ####[facility] [address] [place], [address] Sodium [Moles/Vol] 141 mmol/L Normal 133-145 [facility] Comment on above: Performed By: #### L 100.0100, L501.5200, L500.4050, L506.0400, L501.9520, L501.2300 ####[facility] [address] [place], [address] T PROT 6.6 g/dL Normal 5.9-8.4 [facility] Comment on above: Performed By: #### L 100.0100, L501.5200, L500.4050, L506.0400, L501.9520, L501.2300 ####[facility] [address] [place], [address] Urea nitrogen [Mass/Vol] 7 mg/dL Normal 4-19 [facility] Comment on above: Performed By: #### L 100.0100, L501.5200, L500.4050, L506.0400, L501.9520, L501.2300 ####[facility] [address] [place], [address] Eosinophil percentageOrdered By: Sherice Fernandez on 02-03-2025 Eosinophils/100 WBC (Bld) 0.9 % 0-5 [facility] Erythrocyte distribution wid th ratioOrdered By: [facility] on 02-03-2025 Erythrocyte distribution width (RBC) [Ratio] 19.5 % High 11.6-14.6 [facility] Erythrocyte distribution wid th standard deviationOrdered By: [facility] on 02-03-2025 Erythrocyte distribution width (RBC) [Ratio] 65.8 fl High 35.1-43.9 [facility] Glomerular filtration rate ( GFR) estimation/1.73 sq m using serum, plasma, or whole bOrdered By: Sherice Fernandez on 02-03-2025 GFR/1.73 sq M.predicted among non-blacks MDRD (S/P/Bld) [Vol rate/Area] 77 mL/min/{1.73_m2} >60 [facility] Comment on above: mL/min/1.73m2 CKD-EP I Creatinine Equation (2020) Hematocrit Auto (Bld) [Volum e fraction]Ordered By: Sherice Fernandez on 02-03-2025 Hematocrit (Bld) [Volume fraction] 32.6 % Low 37-47 [facility] Hemoglobin measurementOrdere d By: Sherice Fernandez on 02-03-2025 Hemoglobin (Bld) [Mass/Vol] 10.7 g/dL Low 12.0-15.0 [facility] Immature granulocytes/100 WB C Auto (Bld)Ordered By: Sherice Fernandez on 02-03-2025 Immature granulocytes/100 WBC (Bld) 0.300 % 0.0-0.9 [facility] Comment on above: IG% - Immature Granu locytes (promyelocytes, myelocytes and metamyelocytes) > 1% indicates that a LEFT SHIFT is Present. Laboratory - Chemistry and C hemistry - challengeOrdered By: [facility] on 02-03-2025 AST [Catalytic activity/Vol] 39 U/L High <32 [facility] Laboratory - Hematology and Cell countsOrdered By: [facility] on 02-03-2025 Anisocytosis Ql (Bld) 1+ [facility] MCV (mean corpuscular volume ) determinationOrdered By: Sherice Fernandez on 02-03-2025 MCV (RBC) [Entitic vol] 92.1 fL 81-99 [facility] Magnesiumon 02-03-2025 Magnesium [Mass/Vol] 1.5 mg/dL Normal 1.5-2.2 [facility] Comment on above: Performed By: #### L 100.0100, L501.5200, L500.4050, L506.0400, L501.9520, L501.2300 ####[facility] [address], [place], [id number] Magnesium measurement (mass/ volume)Ordered By: [facility] on 02-03-2025 Magnesium (Unsp spec) [Mass/Vol] 1.5 mg/dL 1.5-2.2 [facility] Mean corpuscular hemoglobin (MCH) determinationOrdered By: [facility] on 02-03-2025 MCH (RBC) [Entitic mass] 30.2 pg 27.0-32.0 [facility] Mean corpuscular hemoglobin concentration (MCHC) determinationOrdered By: [facility] on 02-03-2025 MCHC (RBC) [Mass/Vol] 32.8 g/dL 32-36 [facility] Mean platelet volume determi nationOrdered By: Sherice Fernandez on 02-03-2025 Platelet mean volume (Bld) [Entitic vol] 9.6 fL 6.2-12.0 [facility] Monocyte percentageOrdered B y: Sherice Fernandez on 02-03-2025 Monocytes/100 WBC (Bld) 22.7 % High 0-10 [facility] Neutrophil percentageOrdered By: Sherice Fernandez on 02-03-2025 Neutrophils/100 WBC (Bld) 54.3 % 47-70 [facility] No Panel InformationOrdered By: Sherice Fernandez on 02-03-2025 1+ [facility] 39 U/L High <32 [facility] Nucleated red blood cell per centageOrdered By: Sherice Fernandez on 02-03-2025 Nucleated RBC/100 WBC (Bld) [Ratio] 0 % 0-5 [facility] Oncology Visit Reporton 01-16 Oncology Visit Report Normal [facility] Phosphoruson 02-03-2025 Phosphate [Mass/Vol] 4.0 mg/dL Normal 2.7-4.5 [facility] Comment on above: Performed By: #### L 100.0100, L501.5200, L500.4050, L506.0400, L501.9520, L501.2300 ####[facility] [address] [place], [address] Platelet countOrdered By: Melva Fernandez on 02-03-2025 Platelets (Bld) [#/Vol] 356 10*3/uL 150-450 [facility] Potassium measurement (mass/ volume)Ordered By: Sherice Fernandez on 02-03-2025 Potassium (Unsp spec) [Mass/Vol] 4.0 mmol/L 3.3-5.1 [facility] RBC Auto (Bld) [#/Vol]Ordere d By: Sherice Fernandez on 02-03-2025 RBC (Bld) [#/Vol] 3.54 10*6/uL Low 4.2-5.4 [facility] Serum creatinine measurement (mass/volume)Ordered By: Sherice Fernandez on 02-03-2025 Creatinine [Mass/Vol] 0.82 mg/dL 0.70-1.20 [facility] Serum globulin measurementOr dered By: Sherice Fernandez on 02-03-2025 Globulin (S) [Mass/Vol] 3.3 g/dL 2.2-4.2 [facility] Serum glucose measurement (m ass/volume)Ordered By: Sherice Fernandez on 02-03-2025 Glucose [Mass/Vol] 108 mg/dL High 70-99 [facility] Serum or plasma alanine encarnacion otransferase (ALT) measurementOrdered By: Sherice Fernandez on 02-03-2025 ALT [Catalytic activity/Vol] 10 U/L <35 [facility] Serum or plasma albumin jayro urement (mass/volume)Ordered By: Sherice Fernandez on 02-03-2025 Albumin [Mass/Vol] 3.4 g/dL 3.4-4.8 [facility] Serum or plasma albumin/glob ulin mass ratioOrdered By: Sherice Fernandez on 02-03-2025 Albumin/Globulin [Mass ratio] 1.0 {ratio} 0.9-2.4 [facility] Serum or plasma alkaline lukas sphatase measurementOrdered By: Sherice Fernandez on 02-03-2025 ALP [Catalytic activity/Vol] 162 U/L High 35-104 [facility] Serum or plasma calcium jayro urement (mass/volume)Ordered By: Sherice Fernandez on 02-03-2025 Calcium [Mass/Vol] 9.4 mg/dL 7.6-11.0 [facility] Serum or plasma urea nitroge n measurement (mass/volume)Ordered By: Sherice Fernandez on 02-03-2025 Urea nitrogen [Mass/Vol] 7 mg/dL 4-19 [facility] Sodium levelOrdered By: Carmella Fernandez on 02-03-2025 Sodium [Moles/Vol] 141 mmol/L 133-145 [facility] T4 Free Directon 02-03-2025 T4 FREE DIRECT 0.90 ng/dL Normal 0.76-1.46 [facility] Comment on above: Performed By: #### L 100.0100, L501.5200, L500.4050, L506.0400, L501.9520, L501.2300 ####[facility] [address] [place], [place], [id number] T4 freeOrdered By: Sherice burciaga on 02-03-2025 Free T4 [Mass/Vol] 0.90 ng/dL 0.76-1.46 [facility] TSH DL <= 0.005 mIU/L QnOrde red By: Sherice Fernandez on 02-03-2025 TSH Qn 3.490 uIU/mL 0.300-4.200 [facility] Thyroid Stim Hormone (TSH)on 02-03-2025 TSH 3.490 uIU/mL Normal 0.300-4.200 [facility] Comment on above: Performed By: #### L 100.0100, L501.5200, L500.4050, L506.0400, L501.9520, L501.2300 ####[facility] [address] [place], [address] Total proteinOrdered By: Nain Fernandez on 02-03-2025 Protein [Mass/Vol] 6.6 g/dL 5.9-8.4 [facility] White blood cell (WBC) count Ordered By: Sherice Fernandez on 02-03-2025 WBC (Bld) [#/Vol] 5.7 10*3/uL 4.4-11.0 [facility] CNOVon 01-26-2025 CNOV Office Visit (FAMPWS) BETSY RODRIGEZ ([id number]) 1955 F Date Time Provider Department 01/26/25 1:20 PM GIRISH LMEOS During your visit today, we recorded the following information about you: Temperature Pulse Respiration Blood pressure 99.3 degrees 80/minute 16/minute 116/66 Weight 64 kg Girish Lemos MD 01/26/2025 1:43 PM Signed Chief Complaint Patient presents with: Cough: Non-productive Throat Problem: Hoarse and sore sinus congestion with occasional green mucus Perspiration Recording using ambient [employer] software for draft documentation of the visit was discussed with the patient/authorized claim service representative; all questions welcomed and answered. 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 Isckarus Previous Surgical History PAST SURGICAL HISTORY Procedure [...] Known Problems Brother Stroke Maternal Grandmother or SC, patient unsure Coronary Artery Disease Maternal Grandfather Alcohol abuse Paternal Grandfather Patient Allergies ALLERGIES Allergen Reactions Meagan Inhibitors Rash Codeine Vomiting, Other: See Comments Headache Remeron [Mirtazapin* Other: See Comments Fatigue Cgljbyt-Ntc-Jsg Red* Myalgia [place] Unknown Zetia [Ezetimibe] Myalgia Current Medications Current [...] hours as needed for pain. mv,jaci,iron,mn/folic acid/chol (KZHA-BYUS-WCZTO, PABA, ORAL) Take 1 tablet by mouth once daily. Minoxidil 2 % external solution Apply 1 mL to affected area twice daily. albuterol (PROVENTIL) 2.5 mg /3 mL (more content not included)... Normal [facility] XR CHEST 2V FRONTAL/LATon XR CHEST [...] an approximately 2 cm left perihilar mass [employer] Spot Picker: [email or web address] Transcribe Date/Time: Jan 26 2025 1:53P Dictated by : RAJIV DONOVAN MD This examination was interpreted and the report reviewed and electronically signed by: RAJIV DONOVAN MD on Jan 26 2025 1:58PM EST [id number] CN Normal [facility] XR Chest PA and Lateralon IMPRESSION: 1. Stable findings of underlying interstitial lung disease. 2. Redemonstration of an approximately 2 cm left perihilar mass [employer] Spot Picker: [email or web address] Transcribe Date/Time: Jan 26 2025 1:53P Dictated by : RAJIV DONOVAN MD This examination was interpreted and the report reviewed and electronically signed by: RAJIV DONOVAN MD on Jan 26 2025 1:58PM EST DIVISION OF RADIOLOGY * * *Final [...] the upper abdomen. DIVISION OF RADIOLOGY Provider, [facility] - 01/26/2025 * * *Final Report* * [...] an approximately 2 cm left perihilar mass [employer] Spot Picker: [email or web address] Transcribe Date/Time: Jan 26 2025 1:53P Dictated by : RAJIV DONOVAN MD This examination was interpreted and the report reviewed and electronically signed by: RAJIV DONOVAN MD on Jan 26 2025 1:58PM EST [facility] Radiology Study observation (narrative) Anant schneider [facility] XR Chest PA and LateralOrder ed By: [facility] Provider on 01-26-2025 [facility] CNOVon 01-13-2025 CNOV Office Visit (FAMPWS) BETSY RODRIGEZ ([id number]) 1955 F Date Time Provider Department 01/13/25 9:20 AM GIRISH LEMOS FAMPWS During your visit today, we recorded the following information about you: Pulse Respiration Blood pressure Weight 72/minute 16/minute 104/60 62.1 kg Girish Lemos MD 01/13/2025 10:35 AM Signed Chief Complaint Patient presents with: Hospital F/U HPI Betsy Rodrigez is a 69 year old female who presents here today for Hospital discharge follow up. 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 Johnson Dysphagia Dr. 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) Obesity (BMI 30.0-34.9) Other pulmonary embolism without acute cor pulmonale (HCC) Pneumonia due to [place] [address] virus Requiring intubation Small cell lung cancer [...] cyst removal from eyelids TONSILLECTOMY HX 195 Family History FAMILY HISTORY Problem Relation Age of Onset Cancer Mother lung Hypertension Mother Cancer Father lung No Known Problems Sister Cancer Brother lung No Known Problems Brother No Known Problems Brother Stroke Maternal Grandmother or SC, patient unsure Coronary Artery Disease Maternal Grandfather Alcohol abuse Paternal Grandfather Patient Allergies ALLERGIES Allergen Reactions Meagan Inhibitors Rash Codeine Vomiting, Other: See Comments Headache Remeron [Mirtazapin* Other: See Comments Fatigue Ckvktjb-Izq-Qdz Red* Myalgia [place] Unknown Zetia [Ezetimibe] Myalgia Current Medications Current [...] by trina (more content not included)... Normal [facility] Absolute lymphocyte countOrd ered By: Estrella Cabezas on 01-10-2025 Lymphocytes Auto (Unsp spec) [#/Vol] 1.88 10*3/uL 0.83-4.51 [facility] Absolute neutrophil countOrd ered By: Estrella Cabezas on 01-10-2025 Neutrophils (Bld) [#/Vol] 43.6 10*3/uL High 2.0-7.7 [facility] Anion gap in Serum or Plasma Ordered By: Estrella Cabezas on 01-10-2025 Anion gap [Moles/Vol] 11 mmol/L 5-15 [facility] BUN/creatinine ratioOrdered By: Estrella Cabezas on 01-10-2025 Urea nitrogen/Creatinine [Mass ratio] 21.6 mg/mg High 10-20 [facility] Basic Metabolic Profile (BMP )on 01-10-2025 BUN/CRE 21.6 RATIO High - [facility] Comment on above: Performed By: #### L 500.2500, L100.0100 ####[facility] [address] [place], [place], [id number] Calcium [Mass/Vol] 8.5 mg/dL Normal 7.6-11.0 [facility] Comment on above: Performed By: #### L 500.2500, L100.0100 ####[facility] [address] [place], [address] Chloride [Moles/Vol] 104 mmol/L Normal 98-108 [facility] Comment on above: Performed By: #### L 500.2500, L100.0100 ####[facility] [address] [place], [address] CO2 [Moles/Vol] 26.7 mmol/L Normal 21.0-32.0 [facility] Comment on above: Performed By: #### L 500.2500, L100.0100 ####[facility] [address] [place], [address] Creatinine [Mass/Vol] 0.87 mg/dL Normal 0.70-1.20 [facility] Comment on above: Performed By: #### L 500.2500, L100.0100 ####[facility] [address] [place], [address] ECRCL 54.90 ml/min Normal 50-250 [facility] Comment on above: Performed By: #### L 500.2500, L100.0100 ####[facility] [address] [place], [address] GAP 11 Normal 5-15 [facility] Comment on above: Performed By: #### L 500.2500, L100.0100 ####[facility] [address] [place], [address] GFR/1.73 sq M.predicted among non-blacks MDRD (S/P/Bld) [Vol rate/Area] 72 mL/min/{1.73_m2} Normal >60 [facility] Comment on above: Result Comment: mL/m in/1.73m2 CKD-EPI Creatinine Equation (2020) Performed By: #### L 500.2500, L100.0100 ####[facility] [address] [place], [address] Glucose [Mass/Vol] 77 mg/dL Normal 70-99 [facility] Comment on above: Performed By: #### L 500.2500, L100.0100 ####[facility] [address] [place], [address] Potassium [Moles/Vol] 3.9 mmol/L Normal 3.3-5.1 [facility] Comment on above: Performed By: #### L 500.2500, L100.0100 ####[facility] [address] [place], [address] Sodium [Moles/Vol] 142 mmol/L Normal 133-145 [facility] Comment on above: Performed By: #### L 500.2500, L100.0100 ####[facility] [address] [place], [address] Urea nitrogen [Mass/Vol] 19 mg/dL Normal 4-19 [facility] Comment on above: Performed By: #### L 500.2500, L100.0100 ####[facility] [address] [place], [address] Bedside Glucoseon 01-10-2025 FINGERSTICK GLU 75 mg/dL Normal 74-106 [facility] Comment on above: Result Comment: FABRIZIO GEMENT OF PATIENT CARE PER NURSING PROTOCOL Performed By: #### L 501.080 ####[facility] [address] [place], [address] FINGERSTICK GLU 116 mg/dL High 74-106 [facility] Comment on above: Result Comment: FABRIZIO GEMENT OF PATIENT CARE PER NURSING PROTOCOL Performed By: #### L 501.080 ####[facility] [address] [place], [address] Blood band neutrophil count as percentage of total leukocytesOrdered By: Estrella Cabezas on 01-10-2025 Band form neutrophils/100 WBC (Bld) 1 % 0-5 [facility] Blood lymphocytes/100 leukoc ytesOrdered By: Estrella Cabezas on 01-10-2025 Lymphocytes/100 WBC (Bld) 4 % Low 19-41 [facility] Blood metamyelocytes/100 isa kocytesOrdered By: Estrella Cabezas on 01-10-2025 Metamyelocytes/100 WBC (Bld) 2 % High 0-1 [facility] Blood monocytes/100 leukocyt esOrdered By: Estrella Cabezas on 01-10-2025 Monocytes/100 WBC (Bld) 1 % 0-10 [facility] Blood segmented neutrophils/ 100 leukocytesOrdered By: Estrella Cabezas on 01-10-2025 Segmented neutrophils/100 WBC (Bld) 92 % High 47-70 [facility] COVID 19 AG RAPID (RN PARAS Ayers)on 01-10-2025 SARS-CoV-2 (COVID-19) RNA DEBBY+probe Ql (Unsp spec) Normal [facility] Comment on above: Performed By: #### M 100.505 ####[facility] [address] [place], [address] Carbon dioxide, total [Moles /volume] in Central venous bloodOrdered By: Estrella Cabezas on 01-10-2025 CO2 [Moles/Vol] 26.7 mmol/L 21.0-32.0 [facility] Cells counted Molgen (Bld/Ti ss) [#]Ordered By: Estrella Cabezas on 01-10-2025 Differential Total Cells Counted 100 MANUAL DIFF [facility] Chloride assayOrdered By: David Cabezas on 01-10-2025 Chloride [Moles/Vol] 104 mmol/L 98-108 [facility] Discharge Instructionon 12-17 Discharge Instruction Normal [facility] Echocardiogram study reportO rdered By: Santi Hurd on 01-10-2025 Study report [facility] [address] [place] [address] Echo Complete 01/10/25 0851 MR#: [id number] Acct: [id number] Name: BETSY RODRIGEZ Rep #:[id number] 04 : 1955 69 From: Santi Hurd MD Attending Dr: Dr. Jassi Michi, MD Status: ADM FARIBA Ordering Dr: Estrella Cabezas MD Date: Location: [facility] Sex: F C Admitted: 01/09/25 Reason For [...] Dr. Jassi Borden MD ~ Date Dictated: 01/10/25 0851 Date Transcribed: 01/10/25 1130 [employer] Spot Picker: Signed [facility] Work Phone: [phone] Erythrocyte distribution wid th (RBC) [Ratio]Ordered By: Estrella Cabezas on 01-10-2025 Erythrocyte distribution width (RBC) [Entitic vol] 59.4 fL High 35.1-43.9 [facility] Erythrocyte distribution wid th ratioOrdered By: Estrella Cabezas on 01-10-2025 Erythrocyte distribution width (RBC) [Ratio] 18.6 % High 11.6-14.6 [facility] Erythrocyte distribution wid th standard deviationOrdered By: Estrella Cabezas on 01-10-2025 Erythrocyte distribution width (RBC) [Ratio] 59.4 fl High 35.1-43.9 [facility] Estimation of creatinine lubna aranceOrdered By: Estrella Cabezas on 01-10-2025 Estimated Creatinine Clearance Calc 54.90 ml/min 50-250 [facility] GFR/1.73 sq M.predicted mary g non-blacks MDRD (S/P/Bld) [Vol rate/Area]Ordered By: Estrella Cabezas on 01-10-2025 Estimated GFR (MDRD) Non-Af Amer 72 >60 [facility] Comment on above: mL/min/1.73m2 CKD-EP I Creatinine Equation (2020) Glomerular filtration rate ( GFR) estimation/1.73 sq m using serum, plasma, or whole bOrdered By: Estrella Cabezas on 01-10-2025 GFR/1.73 sq M.predicted among non-blacks MDRD (S/P/Bld) [Vol rate/Area] 72 mL/min/{1.73_m2} >60 [facility] Comment on above: mL/min/1.73m2 CKD-EP I Creatinine Equation (2020) [facility] deOrdered By: Estrella Cabezas on 01-10-2025 Bedside Glucose (Misc Panel) 75 mg/dL 74-106 [facility] Comment on above: MANAGEMENT OF PATIEN T CARE PER NURSING PROTOCOL Glucose [Mass/Vol] 75 mg/dL 74-106 [facility] Comment on above: MANAGEMENT OF PATIEN T CARE PER NURSING PROTOCOL Hematocrit Auto (Bld) [Volum e fraction]Ordered By: Estrella Cabezas on 01-10-2025 Hematocrit (Bld) [Volume fraction] 30.9 % Low 37-47 [facility] Hemoglobin measurementOrdere d By: Estrella Cabezas on 01-10-2025 Hemoglobin (Bld) [Mass/Vol] 10.4 g/dL Low 12.0-15.0 [facility] Lymphocytes Auto (Unsp spec) [#/Vol]Ordered By: Estrella Cabezas on 01-10-2025 Lymphocytes (Bld) [#/Vol] 1.88 10*3/uL 0.83-4.51 [facility] MCV (mean corpuscular volume ) determinationOrdered By: Estrella Cabezas on 01-10-2025 MCV (RBC) [Entitic vol] 89.0 fL 81-99 [facility] Mean corpuscular hemoglobin (MCH) determinationOrdered By: Estrella Cabezas on 01-10-2025 MCH (RBC) [Entitic mass] 30.0 pg 27.0-32.0 [facility] Mean corpuscular hemoglobin concentration (MCHC) determinationOrdered By: Estrella Cabezas on 01-10-2025 MCHC (RBC) [Mass/Vol] 33.7 g/dL 32-36 [facility] Mean platelet volume determi nationOrdered By: Estrella Cabezas on 01-10-2025 Platelet mean volume (Bld) [Entitic vol] 9.8 fL 6.2-12.0 [facility] Neutrophil percentageOrdered By: Estrella Cabezas on 01-10-2025 Neutrophils (%) (Auto) Not Reportable [facility] Pathologist review Scott (Unsp spec) [Interp]Ordered By: Estrella Cabezas on 01-10-2025 Differential Pathologist's Review May anastasia [facility] Platelet countOrdered By: David Cabezas on 01-10-2025 Platelets (Bld) [#/Vol] 419 10*3/uL 150-450 [facility] Platelet estimateOrdered By: Estrella Cabezas on 01-10-2025 Platelets LM Ql (Bld) A ADEQ [facility] Platelets LM Ql (Bld)Ordered By: Estrella Cabezas on 01-10-2025 Platelet Estimate A [facility] Potassium (Unsp spec) [Mass/ Vol]Ordered By: Estrella Cabezas on 01-10-2025 Potassium [Moles/Vol] 3.9 mmol/L 3.3-5.1 [facility] Potassium measurement (mass/ volume)Ordered By: Estrella Cabezas on 01-10-2025 Potassium (Unsp spec) [Mass/Vol] 3.9 mmol/L 3.3-5.1 [facility] RBC Auto (Bld) [#/Vol]Ordere d By: Estrella Cabezas on 01-10-2025 RBC (Bld) [#/Vol] 3.47 10*6/uL Low 4.2-5.4 [facility] Review by pathologistOrdered By: Estrella Cabezas on 01-10-2025 Pathologist review Scott (Unsp spec) [Interp] Marah oconnor [facility] Pathologist review Scott (Unsp spec) [Interp] Reviewed [facility] Comment on above: Previous reported re sult: Marah oconnor Edited by: ELGIN on 02/05/25:1614SEE REPORT IN PATIENT'S EMR AMENDED REPORT 02/05/25 1614 PATH REV previously reported as: Marah oconnor Segmented neutrophils/100 WB C (Bld)Ordered By: Estrella Cabezas on 01-10-2025 Neutrophils/100 WBC (Bld) 92 % High 47-70 [facility] Serum creatinine measurement (mass/volume)Ordered By: Estrella Cabezas on 01-10-2025 Creatinine [Mass/Vol] 0.87 mg/dL 0.70-1.20 [facility] Serum glucose measurement (m ass/volume)Ordered By: Estrella Cabezas on 01-10-2025 Glucose [Mass/Vol] 77 mg/dL 70-99 [facility] Serum or plasma calcium jayro urement (mass/volume)Ordered By: Estrella Cabezas on 01-10-2025 Calcium [Mass/Vol] 8.5 mg/dL 7.6-11.0 [facility] Serum or plasma urea nitroge n measurement (mass/volume)Ordered By: Estrella Cabezas on 01-10-2025 Urea nitrogen [Mass/Vol] 19 mg/dL 4-19 [facility] Sodium levelOrdered By: Kenia Cabezas on 01-10-2025 Sodium [Moles/Vol] 142 mmol/L 133-145 [facility] Total cell countOrdered By: Estrella Cabezas on 01-10-2025 Cells counted Molgen (Bld/Tiss) [#] 100 MANUAL DIFF [facility] White blood cell (WBC) count Ordered By: Estrella Cabezas on 01-10-2025 WBC (Bld) [#/Vol] 46.9 10*3/uL High 4.4-11.0 [facility] Comment on above: CRITICAL VALUE MAIN D TO [id number]/26/25 0548 Tobi Yousif.RESULTS READ BACK BY SAME. 12 Lead EKGon 01-09-2025 12 Lead EKG Normal [facility] Automated lymphocyte count a s percentage of total leukocytesOrdered By: Austin Mack on 01-09-2025 Lymphocytes/100 WBC Auto (Unsp spec) 4.7 % Low 19-41 [facility] Basic Metabolic Profile (BMP )on 01-09-2025 BUN/CRE 25.5 RATIO High 10-20 [facility] Comment on above: Performed By: #### L 100.0100, L500.2500, L501.4021 ####[facility] [address] [place], [address] Calcium [Mass/Vol] 8.8 mg/dL Normal 7.6-11.0 [facility] Comment on above: Performed By: #### L 100.0100, L500.2500, L501.4021 ####[facility] [address] [place], [address] Chloride [Moles/Vol] 107 mmol/L Normal 98-108 [facility] Comment on above: Performed By: #### L 100.0100, L500.2500, L501.4021 ####[facility] [address] [place], [address] CO2 [Moles/Vol] 20.1 mmol/L Low 21.0-32.0 [facility] Comment on above: Performed By: #### L 100.0100, L500.2500, L501.4021 ####[facility] [address] [place], [address] Creatinine [Mass/Vol] 0.67 mg/dL Low 0.70-1.20 [facility] Comment on above: Performed By: #### L 100.0100, L500.2500, L501.4021 ####[facility] [address] [place], [address] ECRCL 61.24 ml/min Normal 50-250 [facility] Comment on above: Performed By: #### L 100.0100, L500.2500, L501.4021 ####[facility] [address] [place], [address] GAP 14 Normal 5-15 [facility] Comment on above: Performed By: #### L 100.0100, L500.2500, L501.4021 ####[facility] [address] [place], [address] GFR/1.73 sq M.predicted among non-blacks MDRD (S/P/Bld) [Vol rate/Area] 94 mL/min/{1.73_m2} Normal >60 [facility] Comment on above: Result Comment: mL/m in/1.73m2 CKD-EPI Creatinine Equation (2020) Performed By: #### L 100.0100, L500.2500, L501.4021 ####[facility] [address] [place], [address] Glucose [Mass/Vol] 64 mg/dL Low 70-99 [facility] Comment on above: Performed By: #### L 100.0100, L500.2500, L501.4021 ####[facility] [address] [place], [address] Potassium [Moles/Vol] 3.6 mmol/L Normal 3.3-5.1 [facility] Comment on above: Performed By: #### L 100.0100, L500.2500, L501.4021 ####[facility] [address] [place], [address] Sodium [Moles/Vol] 141 mmol/L Normal 133-145 [facility] Comment on above: Performed By: #### L 100.0100, L500.2500, L501.4021 ####[facility] [address] [place], [address] Urea nitrogen [Mass/Vol] 17 mg/dL Normal 4-19 [facility] Comment on above: Performed By: #### L 100.0100, L500.2500, L501.4021 ####[facility] [address] [place], [address] Basophil percentageOrdered B y: Austin Mack on 01-09-2025 Basophils/100 WBC (Bld) 0.1 % 0-1 [facility] CBC W/Diff, Automatedon 12-17 PLT EST SLT INC Normal ADEQ [facility] Comment on above: Performed By: #### L 100.0100, L500.2500, L501.4021 ####[facility] [address] [place], [place], [address] COVID-19 virus antigen assay Ordered By: Estrella Cabezas on 01-09-2025 SARS-CoV-2 (COVID-19) Ag IA.rapid Ql (Resp) [facility] Chest 1 View (Portable)on Chest 1 View (Portable) Normal [facility] Echo Completeon 01-09-2025 Echo Complete Normal [facility] Emergency Department Summary on 01-09-2025 Emergency Department Summary Normal [facility] Eosinophil percentageOrdered By: Austin Mack on 01-09-2025 Eosinophils/100 WBC (Bld) 0.0 % 0-5 [facility] H AND P Exam - Hospitaliston 01-09-2025 H&P Exam - Hospitalist Normal [facility] Immature granulocytes/100 WB C Auto (Bld)Ordered By: Austin Mack on 01-09-2025 Immature granulocytes/100 WBC (Bld) 1.800 % High 0.0-0.9 [facility] Comment on above: IG% - Immature Granu locytes (promyelocytes, myelocytes and metamyelocytes) > 1% indicates that a LEFT SHIFT is Present. L499.0042on 01-09-2025 Trop T High Sen 19 ng/L High <=14 [facility] Comment on above: Performed By: #### L 499.0042 ####[facility] [address] [place], [address] L499.0043on 01-09-2025 Trop T High Sen 13 ng/L Normal <=14 [facility] Comment on above: Performed By: #### L 499.0043 ####[facility] [address] [place], [address] L501.4021on 01-09-2025 Trop T High Sen 12 ng/L Normal <=14 [facility] Comment on above: Performed By: #### L 100.0100, L500.2500, L501.4021 ####[facility] [address] [place], [address] L503.7505on 01-09-2025 Natriuretic peptide B (Bld) [Mass/Vol] 3119 pg/mL High <=900 [facility] Comment on above: Result Comment: Hear t Failure Unlikely: < 300 pg/mLHeart Failure Likely< 50 Years: > 450 pg/mL50-75 Years: > 900 pg/mL>75 Years: > 1800 pg/mL Performed By: #### L 503.7505 ####[facility] [address] [place], [address] Lymphocytes/100 WBC Auto (Un sp spec)Ordered By: Austin Mack on 01-09-2025 Lymphocytes/100 WBC (Bld) 4.7 % Low 19-41 [facility] Monocyte percentageOrdered B y: Austin Mack on 01-09-2025 Monocytes/100 WBC (Bld) 0.2 % 0-10 [facility] Natriuretic peptide.B promaria hartmanne N-Terminal [Mass/Vol]Ordered By: Austin Mack on 01-09-2025 Natriuretic peptide B (Bld) [Mass/Vol] 3119 pg/mL High <900 [facility] Comment on above: Heart Failure Unlike ly: < 300 pg/mLHeart Failure Likely< 50 Years: > 450 pg/mL50-75 Years: > 900 pg/mL>75 Years: > 1800 pg/mL Natriuretic peptide.B prohor milan N-Terminal [Mass/volume] in Serum or PlasmaOrdered By: Austin Mack on 01-09-2025 Natriuretic peptide.B prohormone N-Terminal [Mass/Vol] 3119 pg/mL High <900 [facility] Comment on above: Heart Failure Unlike ly: < 300 pg/mLHeart Failure Likely< 50 Years: > 450 pg/mL50-75 Years: > 900 pg/mL>75 Years: > 1800 pg/mL Nucleated red blood cell per centageOrdered By: Austin Mack on 01-09-2025 Nucleated RBC/100 WBC (Bld) [Ratio] 0 % 0-5 [facility] RESPIRATORY PANEL MOLECULARo n 01-09-2025 RP PANEL Normal [facility] Comment on above: Performed By: #### M 100.638 ####[facility] [address] [place], [place], [address] Respiratory pathogens DNA an d RNA panel DEBBY+probe (Resp)Ordered By: Estrella Cabezas on 01-09-2025 Respiratory Panel (PCR) [facility] Respiratory pathogens detect ion panel by molecular detection methodOrdered By: Estrella Cabezas on 01-09-2025 Respiratory pathogens DNA and RNA panel DEBBY+probe (Resp) [facility] SARS-CoV-2 (COVID-19) Ag IA. rapid Ql (Resp)Ordered By: Estrella Cabezas on 01-09-2025 SARS-CoV-2 Antigen (Rapid) [facility] Troponin T.cardiac High sens itivity method [Mass/Vol]Ordered By: Austin Mack on 01-09-2025 Troponin T High Sensitivity 4 Hour 13 ng/L <14 [facility] Troponin T High Sensitivity 2 Hour 19 ng/L High <14 [facility] Troponin T High Sensitivity 12 ng/L <14 [facility] Troponin T.cardiac [Mass/vol ume] in Serum or Plasma by High sensitivity methodOrdered By: Austin Mack on 01-09-2025 Troponin T.cardiac High sensitivity method [Mass/Vol] 13 ng/L <14 [facility] Troponin T.cardiac High sensitivity method [Mass/Vol] 19 ng/L High <14 [facility] Troponin T.cardiac High sensitivity method [Mass/Vol] 12 ng/L <14 [facility] Absolute neutrophil countOrd ered By: Sherice Fernandez on 01-06-2025 Neutrophils (Bld) [#/Vol] 5.9 10*3/uL 2.0-7.7 [facility] Anion gap in Serum or Plasma Ordered By: Sherice Fernandez on 01-06-2025 Anion gap [Moles/Vol] 13 mmol/L 5-15 [facility] BUN/creatinine ratioOrdered By: Sherice Fernandez on 01-06-2025 Urea nitrogen/Creatinine [Mass ratio] 7.9 mg/mg Low 10-20 [facility] Basophil percentageOrdered B y: Sherice Fernandez on 01-06-2025 Basophils/100 WBC (Bld) 0.7 % 0-1 [facility] Bilirubin, totalOrdered By: Sherice Fernandez on 01-06-2025 Bilirubin [Mass/Vol] 0.62 mg/dL 0.00-1.30 [facility] Blood manual differential co mment interpretation (narrative result)Ordered By: Sherice Fernandez on 01-06-2025 Manual differential comment Scott (Bld) [Interp] SCANNED [facility] Comment on above: MONOCYTOSIS NOTED CBC W/Diff, Automatedon 12-17 PATH REV Reviewed Normal [facility] Comment on above: Result Comment: SEE REPORT IN PATIENT'S EMR AMENDED REPORT 01/06/25 1328 PATH REV previously reported as: January Performed By: #### L 501.5200, L500.2500, L100.0100, L501.2300 ####[facility] [address] [place], [place], [id number] Absolute Lymph 1.05 X10 3/uL Normal 0.83-4.51 [facility] Comment on above: Performed By: #### L 506.0400, L100.0100, L501.9520, L501.5200, L501.2300, L500.4050 ####[facility] [address] [place], [address] Absolute Neut 5.9 X10 3/uL Normal 2.0-7.7 [facility] Comment on above: Performed By: #### L 506.0400, L100.0100, L501.9520, L501.5200, L501.2300, L500.4050 ####[facility] [address] [place], [address] Basophils/100 WBC (Bld) 0.7 % Normal 0-1 [facility] Comment on above: Performed By: #### L 506.0400, L100.0100, L501.9520, L501.5200, L501.2300, L500.4050 ####[facility] [address] [place], [address] Eosinophils/100 WBC (Bld) 0.3 % Normal 0-5 [facility] Comment on above: Performed By: #### L 506.0400, L100.0100, L501.9520, L501.5200, L501.2300, L500.4050 ####[facility] [address] [place], [address] Erythrocyte distribution width (RBC) [Ratio] 18.2 % High 11.6-14.6 [facility] Comment on above: Performed By: #### L 506.0400, L100.0100, L501.9520, L501.5200, L501.2300, L500.4050 ####[facility] [address] [place], [address] Hematocrit (Bld) [Volume fraction] 33.1 % Low 37-47 [facility] Comment on above: Performed By: #### L 506.0400, L100.0100, L501.9520, L501.5200, L501.2300, L500.4050 ####[facility] [address] [place], [address] Hemoglobin (Bld) [Mass/Vol] 10.8 g/dL Low 12.0-15.0 [facility] Comment on above: Performed By: #### L 506.0400, L100.0100, L501.9520, L501.5200, L501.2300, L500.4050 ####[facility] [address] [place], [address] IG% 1.100 High 0.0-0.9 [facility] Comment on above: Result Comment: IG% - Immature Granulocytes (promyelocytes, myelocytes andmetamyelocytes) > 1% indicates that a LEFT SHIFT is Present. Performed By: #### L 506.0400, L100.0100, L501.9520, L501.5200, L501.2300, L500.4050 ####[facility] [address] [place], [address] Lymphocytes/100 WBC (Bld) 11.7 % Low 19-41 [facility] Comment on above: Performed By: #### L 506.0400, L100.0100, L501.9520, L501.5200, L501.2300, L500.4050 ####[facility] [address] [place], [address] MCH (RBC) [Entitic mass] 29.3 pg Normal 27.0-32.0 [facility] Comment on above: Performed By: #### L 506.0400, L100.0100, L501.9520, L501.5200, L501.2300, L500.4050 ####[facility] [address] [place], [address] MCHC (RBC) [Mass/Vol] 32.6 g/dL Normal 32-36 [facility] Comment on above: Performed By: #### L 506.0400, L100.0100, L501.9520, L501.5200, L501.2300, L500.4050 ####[facility] [address] [place], [address] MCV (RBC) [Entitic vol] 89.9 fL Normal 81-99 [facility] Comment on above: Performed By: #### L 506.0400, L100.0100, L501.9520, L501.5200, L501.2300, L500.4050 ####[facility] [address] [place], [address] Monocytes/100 WBC (Bld) 20.0 % High 0-10 [facility] Comment on above: Performed By: #### L 506.0400, L100.0100, L501.9520, L501.5200, L501.2300, L500.4050 ####[facility] [address] [place], [address] Neutrophils/100 WBC (Bld) 66.2 % Normal 47-70 [facility] Comment on above: Performed By: #### L 506.0400, L100.0100, L501.9520, L501.5200, L501.2300, L500.4050 ####[facility] [address] [place], [address] Nucleated RBC (Bld) [#/Vol] 0 10*3/uL Normal 0-5 [facility] Comment on above: Performed By: #### L 506.0400, L100.0100, L501.9520, L501.5200, L501.2300, L500.4050 ####[facility] [address] [place], [address] Platelet mean volume (Bld) [Entitic vol] 9.9 fL Normal 6.2-12.0 [facility] Comment on above: Performed By: #### L 506.0400, L100.0100, L501.9520, L501.5200, L501.2300, L500.4050 ####[facility] [address] [place], [address] Platelets (Bld) [#/Vol] 483 10*3/uL High 150-450 [facility] Comment on above: Performed By: #### L 506.0400, L100.0100, L501.9520, L501.5200, L501.2300, L500.4050 ####[facility] [address] [place], [address] RBC (Bld) [#/Vol] 3.68 10*6/uL Low 4.2-5.4 [facility] Comment on above: Performed By: #### L 506.0400, L100.0100, L501.9520, L501.5200, L501.2300, L500.4050 ####[facility] [address] [place], [address] RDW SD 59.6 fl High 35.1-43.9 [facility] Comment on above: Performed By: #### L 506.0400, L100.0100, L501.9520, L501.5200, L501.2300, L500.4050 ####[facility] [address] [place], [address] WBC (Bld) [#/Vol] 9.0 10*3/uL Normal 4.4-11.0 [facility] Comment on above: Performed By: #### L 506.0400, L100.0100, L501.9520, L501.5200, L501.2300, L500.4050 ####[facility] [address] [place], [address] Carbon dioxide, total [Moles /volume] in Central venous bloodOrdered By: Sherice Fernandez on 01-06-2025 CO2 [Moles/Vol] 24.3 mmol/L 21.0-32.0 [facility] Chloride assayOrdered By: Melva Fernandez on 01-06-2025 Chloride [Moles/Vol] 105 mmol/L 98-108 [facility] Comprehensive Metabolic Prof ilon 01-06-2025 Albumin [Mass/Vol] 3.2 g/dL Low 3.4-4.8 [facility] Comment on above: Performed By: #### L 506.0400, L100.0100, L501.9520, L501.5200, L501.2300, L500.4050 ####[facility] [address] [place], [address] Albumin/Globulin [Mass ratio] 0.8 {ratio} Low 0.9-2.4 [facility] Comment on above: Performed By: #### L 506.0400, L100.0100, L501.9520, L501.5200, L501.2300, L500.4050 ####[facility] [address] [place], [address] ALK PHOS 269 U/L High 35-104 [facility] Comment on above: Performed By: #### L 506.0400, L100.0100, L501.9520, L501.5200, L501.2300, L500.4050 ####[facility] [address] [place], [address] ALT [Catalytic activity/Vol] 28 U/L Normal <=34 [facility] Comment on above: Performed By: #### L 506.0400, L100.0100, L501.9520, L501.5200, L501.2300, L500.4050 ####[facility] [address] [place], [address] AST [Catalytic activity/Vol] 77 U/L High <=31 [facility] Comment on above: Performed By: #### L 506.0400, L100.0100, L501.9520, L501.5200, L501.2300, L500.4050 ####[facility] [address] [place], [address] Bilirubin [Mass/Vol] 0.62 mg/dL Normal 0.00-1.30 [facility] Comment on above: Performed By: #### L 506.0400, L100.0100, L501.9520, L501.5200, L501.2300, L500.4050 ####[facility] [address] [place], [address] BUN/CRE 7.9 RATIO Low 10-20 [facility] Comment on above: Performed By: #### L 506.0400, L100.0100, L501.9520, L501.5200, L501.2300, L500.4050 ####[facility] [address] [place], [address] Calcium [Mass/Vol] 8.8 mg/dL Normal 7.6-11.0 [facility] Comment on above: Performed By: #### L 506.0400, L100.0100, L501.9520, L501.5200, L501.2300, L500.4050 ####[facility] [address] [place], [address] Chloride [Moles/Vol] 105 mmol/L Normal 98-108 [facility] Comment on above: Performed By: #### L 506.0400, L100.0100, L501.9520, L501.5200, L501.2300, L500.4050 ####[facility] [address] [place], [address] CO2 [Moles/Vol] 24.3 mmol/L Normal 21.0-32.0 [facility] Comment on above: Performed By: #### L 506.0400, L100.0100, L501.9520, L501.5200, L501.2300, L500.4050 ####[facility] [address] [place], [address] Creatinine [Mass/Vol] 0.77 mg/dL Normal 0.70-1.20 [facility] [place] Comment on above: Performed By: #### L 506.0400, L100.0100, L501.9520, L501.5200, L501.2300, L500.4050 ####[facility] [address] [place], [address] ECRCL 54.13 ml/min Normal 50-250 [facility] Comment on above: Performed By: #### L 506.0400, L100.0100, L501.9520, L501.5200, L501.2300, L500.4050 ####[facility] [address] [place], [address] GAP 13 Normal 5-15 [facility] Comment on above: Performed By: #### L 506.0400, L100.0100, L501.9520, L501.5200, L501.2300, L500.4050 ####[facility] [address] [place], [address] GFR/1.73 sq M.predicted among non-blacks MDRD (S/P/Bld) [Vol rate/Area] 83 mL/min/{1.73_m2} Normal >60 [facility] Comment on above: Result Comment: mL/m in/1.73m2 CKD-EPI Creatinine Equation (2020) Performed By: #### L 506.0400, L100.0100, L501.9520, L501.5200, L501.2300, L500.4050 ####[facility] [address] [place], [address] Globulin (S) [Mass/Vol] 4.0 g/dL Normal 2.2-4.2 [facility] Comment on above: Performed By: #### L 506.0400, L100.0100, L501.9520, L501.5200, L501.2300, L500.4050 ####[facility] [address] [place], [address] Glucose [Mass/Vol] 126 mg/dL High 70-99 [facility] Comment on above: Performed By: #### L 506.0400, L100.0100, L501.9520, L501.5200, L501.2300, L500.4050 ####[facility] [address] [place], [address] Potassium [Moles/Vol] 4.4 mmol/L Normal 3.3-5.1 [facility] [place] Comment on above: Performed By: #### L 506.0400, L100.0100, L501.9520, L501.5200, L501.2300, L500.4050 ####[facility] [address] [place], [address] Sodium [Moles/Vol] 142 mmol/L Normal 133-145 [facility] Comment on above: Performed By: #### L 506.0400, L100.0100, L501.9520, L501.5200, L501.2300, L500.4050 ####[facility] [address] [place], [address] T PROT 7.2 g/dL Normal 5.9-8.4 [facility] Comment on above: Performed By: #### L 506.0400, L100.0100, L501.9520, L501.5200, L501.2300, L500.4050 ####[facility] [address] [place], [address] Urea nitrogen [Mass/Vol] 6 mg/dL Normal 4-19 [facility] Comment on above: Performed By: #### L 506.0400, L100.0100, L501.9520, L501.5200, L501.2300, L500.4050 ####[facility] [address] [place], [address] Eosinophil percentageOrdered By: Sherice Fernandez on 01-06-2025 Eosinophils/100 WBC (Bld) 0.3 % 0-5 [facility] Erythrocyte distribution wid th (RBC) [Ratio][facility]25 Erythrocyte distribution width (RBC) [Entitic vol] 59.6 fL High 35.1-43.9 [facility] Erythrocyte distribution wid th ratioOrdered By: [facility] on 01-06-2025 Erythrocyte distribution width (RBC) [Ratio] 18.2 % High 11.6-14.6 [facility] Estimation of creatinine lubna aranceOrdered By: Sherice Fernandez on 01-06-2025 Estimated Creatinine Clearance Calc 54.13 ml/min 50-250 [facility] GFR/1.73 sq M.predicted mary g non-blacks MDRD (S/P/Bld) [Vol rate/Area]Ordered By: Sherice Fernandez on 01-06-2025 Estimated GFR (MDRD) Non-Af Amer 83 >60 [facility] Comment on above: mL/min/1.73m2 CKD-EP I Creatinine Equation (2020) Hematocrit Auto (Bld) [Volum e fraction]Ordered By: Sherice Fernandez on 01-06-2025 Hematocrit (Bld) [Volume fraction] 33.1 % Low 37-47 [facility] Hemoglobin measurementOrdere d By: Sherice Fernandez on 01-06-2025 Hemoglobin (Bld) [Mass/Vol] 10.8 g/dL Low 12.0-15.0 [facility] Immature granulocytes/100 WB C Auto (Bld)Ordered By: Sherice Fernandez on 01-06-2025 Immature granulocytes/100 WBC (Bld) 1.100 % High 0.0-0.9 [facility] Comment on above: IG% - Immature Granu locytes (promyelocytes, myelocytes and metamyelocytes) > 1% indicates that a LEFT SHIFT is Present. Laboratory - Chemistry and C hemistry - challengeOrdered By: Sherice Fernandez on 01-06-2025 AST [Catalytic activity/Vol] 77 U/L High <32 [facility] Lymphocytes Auto (Unsp spec) [#/Vol]Ordered By: Sherice Fernandez on 01-06-2025 Lymphocytes (Bld) [#/Vol] 1.05 10*3/uL 0.83-4.51 [facility] Lymphocytes/100 WBC Auto (Un sp spec)Ordered By: Sherice Fernandez on 01-06-2025 Lymphocytes/100 WBC (Bld) 11.7 % Low 19-41 [facility] MCV (mean corpuscular volume ) determinationOrdered By: Sherice Fernandez on 01-06-2025 MCV (RBC) [Entitic vol] 89.9 fL 81-99 [facility] Magnesiumon 01-06-2025 Magnesium [Mass/Vol] 1.5 mg/dL Normal 1.5-2.2 [facility] Comment on above: Performed By: #### L 506.0400, L100.0100, L501.9520, L501.5200, L501.2300, L500.4050 ####[facility] [address] [place], [address] Magnesium (Unsp spec) [Mass/ Vol]Ordered By: Sherice Fernandez on 01-06-2025 Magnesium [Mass/Vol] 1.5 mg/dL 1.5-2.2 [facility] Manual differential comment Scott (Bld) [Interp]Ordered By: Sherice Fernandez on 01-06-2025 Differential Comment SCANNED [facility] Comment on above: MONOCYTOSIS NOTED Mean corpuscular hemoglobin (MCH) determinationOrdered By: Sherice Fernandez on 01-06-2025 MCH (RBC) [Entitic mass] 29.3 pg 27.0-32.0 [facility] Mean corpuscular hemoglobin concentration (MCHC) determinationOrdered By: Sherice Fernandez on 01-06-2025 MCHC (RBC) [Mass/Vol] 32.6 g/dL 32-36 [facility] Mean platelet volume determi nationOrdered By: Sherice Fernandez on 01-06-2025 Platelet mean volume (Bld) [Entitic vol] 9.9 fL 6.2-12.0 [facility] Monocyte percentageOrdered B y: Sherice Fernandez on 01-06-2025 Monocytes/100 WBC (Bld) 20.0 % High 0-10 [facility] Neutrophil percentageOrdered By: Sherice Fernandez on 01-06-2025 Neutrophils/100 WBC (Bld) 66.2 % 47-70 [facility] Nucleated red blood cell per centageOrdered By: Sherice Fernandez on 01-06-2025 Nucleated RBC/100 WBC (Bld) [Ratio] 0 % 0-5 [facility] Oncology Visit Reporton 12-17 Oncology Visit Report Normal [facility] Phosphoruson 01-06-2025 Phosphate [Mass/Vol] 3.9 mg/dL Normal 2.7-4.5 [facility] Comment on above: Performed By: #### L 506.0400, L100.0100, L501.9520, L501.5200, L501.2300, L500.4050 ####[facility] [address] [place], [address] Platelet countOrdered By: Melva Fernandez on 01-06-2025 Platelets (Bld) [#/Vol] 483 10*3/uL High 150-450 [facility] Potassium (Unsp spec) [Mass/ Vol]Ordered By: Sherice Fernandez on 01-06-2025 Potassium [Moles/Vol] 4.4 mmol/L 3.3-5.1 [facility] RBC Auto (Bld) [#/Vol]Ordere d By: Sherice Fernandez on 01-06-2025 RBC (Bld) [#/Vol] 3.68 10*6/uL Low 4.2-5.4 [facility] Serum creatinine measurement (mass/volume)Ordered By: Sherice Fernandez on 01-06-2025 Creatinine [Mass/Vol] 0.77 mg/dL 0.70-1.20 [facility] Serum globulin measurementOr dered By: Sherice Fernandez on 01-06-2025 Globulin (S) [Mass/Vol] 4.0 g/dL 2.2-4.2 [facility] Serum glucose measurement (m ass/volume)Ordered By: Sherice Fernandez on 01-06-2025 Glucose [Mass/Vol] 126 mg/dL High 70-99 [facility] Serum or plasma alanine encarnacion otransferase (ALT) measurementOrdered By: Sherice Fernandez on 01-06-2025 ALT [Catalytic activity/Vol] 28 U/L <35 [facility] Serum or plasma albumin jayro urement (mass/volume)Ordered By: Sherice Fernandez on 01-06-2025 Albumin [Mass/Vol] 3.2 g/dL Low 3.4-4.8 [facility] Serum or plasma albumin/glob ulin mass ratioOrdered By: Sherice Fernandez on 01-06-2025 Albumin/Globulin [Mass ratio] 0.8 {ratio} Low 0.9-2.4 [facility] Serum or plasma alkaline lukas sphatase measurementOrdered By: Sherice Fernandez on 01-06-2025 ALP [Catalytic activity/Vol] 269 U/L High 35-104 [facility] Serum or plasma calcium jayro urement (mass/volume)Ordered By: Sherice Fernandez on 01-06-2025 Calcium [Mass/Vol] 8.8 mg/dL 7.6-11.0 [facility] Serum or plasma urea nitroge n measurement (mass/volume)Ordered By: Sherice Fernandez on 01-06-2025 Urea nitrogen [Mass/Vol] 6 mg/dL 4-19 [facility] Serum phosphorus measurement Ordered By: Sherice Fernandez on 01-06-2025 Phosphorus Level 3.9 mg/dL 2.7-4.5 [facility] Sodium levelOrdered By: Carmella Fernandez on 01-06-2025 Sodium [Moles/Vol] 142 mmol/L 133-145 [facility] T4 Free Directon 01-06-2025 T4 FREE DIRECT 1.20 ng/dL Normal 0.76-1.46 [facility] Comment on above: Performed By: #### L 506.0400, L100.0100, L501.9520, L501.5200, L501.2300, L500.4050 ####[facility] [address] [place], [place], [id number] T4 freeOrdered By: Sherice burciaga on 01-06-2025 Free T4 [Mass/Vol] 1.20 ng/dL 0.76-1.46 [facility] TSH DL <= 0.005 mIU/L QnOrde red By: Sherice Fernandez on 01-06-2025 Thyroid Stimulating Hormone (TSH) 1.820 uIU/mL 0.300-4.200 [facility] Thyroid Stim Hormone (TSH)on 01-06-2025 TSH 1.820 uIU/mL Normal 0.300-4.200 [facility] Comment on above: Performed By: #### L 506.0400, L100.0100, L501.9520, L501.5200, L501.2300, L500.4050 ####[facility] [address] [place], [place], [address] Total proteinOrdered By: Nain Fernandez on 01-06-2025 Protein [Mass/Vol] 7.2 g/dL 5.9-8.4 [facility] White blood cell (WBC) count Ordered By: Sherice Fernandez on 01-06-2025 WBC (Bld) [#/Vol] 9.0 10*3/uL 4.4-11.0 [facility] CBC W/Diff, Automatedon 12-16 PATH REV N/A Normal [facility] Comment on above: Result Comment: AMENDED REPORT 12/30/24 1406 PATH REV previously reported as: January foll Performed By: #### L 500.4050, L100.0100 ####[facility] [address] [place], [place], [address] Blood band neutrophil count as percentage of total leukocytesOrdered By: Sharda Audie on 12-29-2024 Band form neutrophils/100 WBC (Bld) 11 % High 0-5 [facility] Blood lymphocytes/100 leukoc ytesOrdered By: Sharda Audie on 12-29-2024 Lymphocytes/100 WBC (Bld) 12 % Low 19-41 [facility] Blood metamyelocytes/100 isa kocytesOrdered By: Sharda Audie on 12-29-2024 Metamyelocytes/100 WBC (Bld) 3 % High 0-1 [facility] Blood monocytes/100 leukocyt esOrdered By: Sharda Audie on 12-29-2024 Monocytes/100 WBC (Bld) 16 % High 0-10 [facility] Blood segmented neutrophils/ 100 leukocytesOrdered By: Sharda Audie on 12-29-2024 Segmented neutrophils/100 WBC (Bld) 57 % 47-70 [facility] Cells counted Molgen (Bld/Ti ss) [#]Ordered By: Sharda Audie on 12-29-2024 Differential Total Cells Counted 100 MANUAL DIFF [facility] Comprehensive Metabolic Prof ilon 12-29-2024 Albumin [Mass/Vol] 3.3 g/dL Low 3.4-4.8 [facility] Comment on above: Performed By: #### L 500.4050, L100.0100 ####[facility] [address] [place], [place], [address] Albumin/Globulin [Mass ratio] 1.0 {ratio} Normal 0.9-2.4 [facility] Comment on above: Performed By: #### L 500.4050, L100.0100 ####[facility] [address] [place], [place], [address] ALK PHOS 418 U/L High 35-104 [facility] Comment on above: Performed By: #### L 500.4050, L100.0100 ####[facility] [address] [place], [address] ALT [Catalytic activity/Vol] 44 U/L High <=34 [facility] Comment on above: Performed By: #### L 500.4050, L100.0100 ####[facility] [address] [place], [address] AST [Catalytic activity/Vol] 98 U/L High <=31 [facility] Comment on above: Performed By: #### L 500.4050, L100.0100 ####[facility] [address] [place], [address] Bilirubin [Mass/Vol] 0.65 mg/dL Normal 0.00-1.30 [facility] Comment on above: Performed By: #### L 500.4050, L100.0100 ####[facility] [address] [place], [address] BUN/CRE 11.3 RATIO Normal 10-20 [facility] Comment on above: Performed By: #### L 500.4050, L100.0100 ####[facility] [address] [place], [address] Calcium [Mass/Vol] 8.9 mg/dL Normal 7.6-11.0 [facility] Comment on above: Performed By: #### L 500.4050, L100.0100 ####[facility] [address] [place], [address] Chloride [Moles/Vol] 101 mmol/L Normal 98-108 [facility] Comment on above: Performed By: #### L 500.4050, L100.0100 ####[facility] [address] [place], [address] CO2 [Moles/Vol] 24.3 mmol/L Normal 21.0-32.0 [facility] Comment on above: Performed By: #### L 500.4050, L100.0100 ####[facility] [address] [place], [address] Creatinine [Mass/Vol] 0.75 mg/dL Normal 0.70-1.20 [facility] Comment on above: Performed By: #### L 500.4050, L100.0100 ####[facility] [address] [place], [address] ECRCL 59.65 ml/min Normal 50-250 [facility] Comment on above: Performed By: #### L 500.4050, L100.0100 ####[facility] [address] [place], [address] GAP 12 Normal 5-15 [facility] Comment on above: Performed By: #### L 500.4050, L100.0100 ####[facility] [address] [place], [address] GFR/1.73 sq M.predicted among non-blacks MDRD (S/P/Bld) [Vol rate/Area] 86 mL/min/{1.73_m2} Normal >60 [facility] Comment on above: Result Comment: mL/m in/1.73m2 CKD-EPI Creatinine Equation (2020) Performed By: #### L 500.4050, L100.0100 ####[facility] [address] [place], [address] Globulin (S) [Mass/Vol] 3.2 g/dL Normal 2.2-4.2 [facility] Comment on above: Performed By: #### L 500.4050, L100.0100 ####[facility] [address] [place], [address] Glucose [Mass/Vol] 168 mg/dL High 70-99 [facility] Comment on above: Performed By: #### L 500.4050, L100.0100 ####[facility] [address] [place], [address] Potassium [Moles/Vol] 4.2 mmol/L Normal 3.3-5.1 [facility] Comment on above: Performed By: #### L 500.4050, L100.0100 ####[facility] [address] [place], [address] Sodium [Moles/Vol] 137 mmol/L Normal 133-145 [facility] Comment on above: Performed By: #### L 500.4050, L100.0100 ####[facility] [address] [place], [address] T PROT 6.5 g/dL Normal 5.9-8.4 [facility] Comment on above: Performed By: #### L 500.4050, L100.0100 ####[facility] [address] [place], [address] Urea nitrogen [Mass/Vol] 8 mg/dL Normal 4-19 [facility] Comment on above: Performed By: #### L 500.4050, L100.0100 ####[facility] [address] [place], [address] Myelocyte %Ordered By: Sharda Bronson on 12-29-2024 Myelocytes/100 WBC (Bld) 1 % High 0-0 [facility] Oncology Visit Reporton 12-16 Oncology Visit Report Normal [facility] Pathologist review Scott (Unsp spec) [Interp]Ordered By: Sharda Bronson on 12-29-2024 Differential Pathologist's Review N/A [facility] Comment on above: Previous reported re sult: Marah oconnor Edited by: HARDIK on 12/30/24:1406 AMENDED REPORT 12/30/24 1406 PATH REV previously reported as: Marah oconnor Platelet estimateOrdered By: Sharda Bronson on 12-29-2024 Platelets LM Ql (Bld) MOD DEC ADEQ [facility] Platelets LM Ql (Bld)Ordered By: Sharda Bronson on 12-29-2024 Platelet Estimate MOD DEC ADEQ [facility] Review by pathologistOrdered By: Sharda Bronson on 12-29-2024 Pathologist review Scott (Unsp spec) [Interp] N/A [facility] Comment on above: Previous reported re sult: Marah oconnor Edited by: HARDIK on 12/30/24:1406 AMENDED REPORT 12/30/24 1406 PATH REV previously reported as: Marah oconnor Segmented neutrophils/100 WB C (Bld)Ordered By: Sharda Bronson on 12-29-2024 Neutrophils/100 WBC (Bld) 57 % 47-70 [facility] Total cell countOrdered By: Sharda Bronson on 12-29-2024 Cells counted Molgen (Bld/Tiss) [#] 100 MANUAL DIFF [facility] Surgery Visit Reporton 12-22 Surgery Visit Report Normal [facility] CBC W/Diff, Automatedon PATH REV N/A Normal [facility] Comment on above: Result Comment: AMENDED REPORT 12/21/24 1428 PATH REV previously reported as: Marah oconnor Performed By: #### L 501.2300, L500.4050, L501.9520, L501.5200, L506.0400, L100.0100 ####[facility] [address] [place], [address] CBC W/Diff, Automatedon Absolute Neut Normal 2.0-7.7 [facility] Comment on above: Result Comment: NO S PECIMENS COLLECTED. Performed By: #### L 500.4050, L100.0100 ####[facility] [address] [place], [address] HCT Normal 37-47 [facility] Comment on above: Result Comment: NO S PECIMENS COLLECTED. Performed By: #### L 500.4050, L100.0100 ####[facility] [address] [place], [address] HGB Normal 12.0-15.0 [facility] Comment on above: Result Comment: NO S PECIMENS COLLECTED. Performed By: #### L 500.4050, L100.0100 ####[facility] [address] [place], [address] MCH Normal 27.0-32.0 [facility] Comment on above: Result Comment: NO S PECIMENS COLLECTED. Performed By: #### L 500.4050, L100.0100 ####[facility] [address] [place], [address] MCHC Normal 32-36 [facility] Comment on above: Result Comment: NO S PECIMENS COLLECTED. Performed By: #### L 500.4050, L100.0100 ####[facility] [address] [place], [address] MCV Normal 81-99 [facility] Comment on above: Result Comment: NO S PECIMENS COLLECTED. Performed By: #### L 500.4050, L100.0100 ####[facility] [address] [place], [address] NEUT% Normal 47-70 [facility] Comment on above: Result Comment: NO S PECIMENS COLLECTED. Performed By: #### L 500.4050, L100.0100 ####[facility] [address] [place], [address] PLT Normal 150-450 [facility] Comment on above: Result Comment: NO S PECIMENS COLLECTED. Performed By: #### L 500.4050, L100.0100 ####[facility] [address] [place], [address] RBC Normal 4.2-5.4 [facility] Comment on above: Result Comment: NO S PECIMENS COLLECTED. Performed By: #### L 500.4050, L100.0100 ####[facility] [address] [place], [address] RDW CV Normal 11.6-14.6 [facility] Comment on above: Result Comment: NO S PECIMENS COLLECTED. Performed By: #### L 500.4050, L100.0100 ####[facility] [address] [place], [address] RDW SD Normal 35.1-43.9 [facility] Comment on above: Result Comment: NO S PECIMENS COLLECTED. Performed By: #### L 500.4050, L100.0100 ####[facility] [address] [place], [address] WBC Normal 4.4-11.0 [facility] Comment on above: Result Comment: NO S PECIMENS COLLECTED. Performed By: #### L 500.4050, L100.0100 ####[facility] [address] [place], [address] Comprehensive Metabolic Prof ilon 12-17-2024 ALB Normal 3.4-4.8 [facility] Comment on above: Result Comment: NO S PECIMENS COLLECTED Performed By: #### L 500.4050, L100.0100 ####[facility] [address] [place], [address] ALK PHOS Normal 35-104 [facility] Comment on above: Result Comment: NO S PECIMENS COLLECTED Performed By: #### L 500.4050, L100.0100 ####[facility] [address] [place], [address] ALT Normal <=34 [facility] Comment on above: Result Comment: NO S PECIMENS COLLECTED Performed By: #### L 500.4050, L100.0100 ####[facility] [address] [place], [address] AST Normal <=31 [facility] Comment on above: Result Comment: NO S PECIMENS COLLECTED Performed By: #### L 500.4050, L100.0100 ####[facility] [address] [place], [address] BUN Normal 4-19 [facility] Comment on above: Result Comment: NO S PECIMENS COLLECTED Performed By: #### L 500.4050, L100.0100 ####[facility] [address] [place], [address] BUN/CRE Normal 10-20 [facility] Comment on above: Result Comment: NO S PECIMENS COLLECTED Performed By: #### L 500.4050, L100.0100 ####[facility] [address] [place], [address] Calcium Normal 7.6-11.0 [facility] Comment on above: Result Comment: NO S PECIMENS COLLECTED Performed By: #### L 500.4050, L100.0100 ####[facility] [address] [place], [address] CL Normal 98-108 [facility] Comment on above: Result Comment: NO S PECIMENS COLLECTED Performed By: #### L 500.4050, L100.0100 ####[facility] [address] [place], [address] CO2 Normal 21.0-32.0 [facility] Comment on above: Result Comment: NO S PECIMENS COLLECTED Performed By: #### L 500.4050, L100.0100 ####[facility] [address] [place], [address] CREAT,SERUM Normal 0.70-1.20 [facility] Comment on above: Result Comment: NO S PECIMENS COLLECTED Performed By: #### L 500.4050, L100.0100 ####[facility] [address] [place], [address] eGFR Normal >60 [facility] Comment on above: Result Comment: NO S PECIMENS COLLECTED Performed By: #### L 500.4050, L100.0100 ####[facility] [address] [place], [address] GAP Normal 5-15 [facility] Comment on above: Result Comment: NO S PECIMENS COLLECTED Performed By: #### L 500.4050, L100.0100 ####[facility] [address] [place], [address] GLU Normal 70-99 [facility] Comment on above: Result Comment: NO S PECIMENS COLLECTED Performed By: #### L 500.4050, L100.0100 ####[facility] [address] [place], [address] Potassium Normal 3.3-5.1 [facility] Comment on above: Result Comment: NO S PECIMENS COLLECTED Performed By: #### L 500.4050, L100.0100 ####[facility] [address] [place], [address] T BILI Normal 0.00-1.30 [facility] Comment on above: Result Comment: NO S PECIMENS COLLECTED Performed By: #### L 500.4050, L100.0100 ####[facility] [address] [place], [address] T PROT Normal 5.9-8.4 [facility] Comment on above: Result Comment: NO S PECIMENS COLLECTED Performed By: #### L 500.4050, L100.0100 ####[facility] [address] [place], [address] Comprehensive Metabolic Profil Normal 133-145 [facility] Comment on above: Result Comment: NO S PECIMENS COLLECTED Performed By: #### L 500.4050, L100.0100 ####[facility] [address] [place], [address] Comprehensive Metabolic Prof ilon 12-16-2024 Albumin [Mass/Vol] 3.2 g/dL Low 3.4-4.8 [facility] Comment on above: Performed By: #### L 501.2300, L500.4050, L501.9520, L501.5200, L506.0400, L100.0100 ####[facility] [address] [place], [address] Albumin/Globulin [Mass ratio] 1.0 {ratio} Normal 0.9-2.4 [facility] Comment on above: Performed By: #### L 501.2300, L500.4050, L501.9520, L501.5200, L506.0400, L100.0100 ####[facility] [address] [place], [address] ALK PHOS 590 U/L High 35-104 [facility] Comment on above: Performed By: #### L 501.2300, L500.4050, L501.9520, L501.5200, L506.0400, L100.0100 ####[facility] [address] [place], [address] ALT [Catalytic activity/Vol] 47 U/L High <=34 [facility] Comment on above: Performed By: #### L 501.2300, L500.4050, L501.9520, L501.5200, L506.0400, L100.0100 ####[facility] [address] [place], [address] AST [Catalytic activity/Vol] 210 U/L High <=31 [facility] Comment on above: Performed By: #### L 501.2300, L500.4050, L501.9520, L501.5200, L506.0400, L100.0100 ####[facility] [address] [place], [address] Bilirubin [Mass/Vol] 1.24 mg/dL Normal 0.00-1.30 [facility] Comment on above: Performed By: #### L 501.2300, L500.4050, L501.9520, L501.5200, L506.0400, L100.0100 ####[facility] [address] [place], [address] BUN/CRE 7.8 RATIO Low 10-20 [facility] Comment on above: Performed By: #### L 501.2300, L500.4050, L501.9520, L501.5200, L506.0400, L100.0100 ####[facility] [address] [place], [address] Calcium [Mass/Vol] 8.8 mg/dL Normal 7.6-11.0 [facility] Comment on above: Performed By: #### L 501.2300, L500.4050, L501.9520, L501.5200, L506.0400, L100.0100 ####[facility] [address] [place], [address] Chloride [Moles/Vol] 104 mmol/L Normal 98-108 [facility] Comment on above: Performed By: #### L 501.2300, L500.4050, L501.9520, L501.5200, L506.0400, L100.0100 ####[facility] [address] [place], [address] CO2 [Moles/Vol] 21.3 mmol/L Normal 21.0-32.0 [facility] Comment on above: Performed By: #### L 501.2300, L500.4050, L501.9520, L501.5200, L506.0400, L100.0100 ####[facility] [address] [place], [place], [id number] Creatinine [Mass/Vol] 0.79 mg/dL Normal 0.70-1.20 [facility] [place] Comment on above: Performed By: #### L 501.2300, L500.4050, L501.9520, L501.5200, L506.0400, L100.0100 ####[facility] [address] [place], [place], [phone](922) ECRCL 60.80 ml/min Normal 50-250 [facility] Comment on above: Performed By: #### L 501.2300, L500.4050, L501.9520, L501.5200, L506.0400, L100.0100 ####[facility] [address] [place], [address] GAP 14 Normal 5-15 [facility] Comment on above: Performed By: #### L 501.2300, L500.4050, L501.9520, L501.5200, L506.0400, L100.0100 ####[facility] [address] [place], [place], [phone](997) GFR/1.73 sq M.predicted among non-blacks MDRD (S/P/Bld) [Vol rate/Area] 81 mL/min/{1.73_m2} Normal >60 [facility] Comment on above: Result Comment: mL/m in/1.73m2 CKD-EPI Creatinine Equation (2020) Performed By: #### L 501.2300, L500.4050, L501.9520, L501.5200, L506.0400, L100.0100 ####[facility] [address] [place], [address] Globulin (S) [Mass/Vol] 3.2 g/dL Normal 2.2-4.2 [facility] Comment on above: Performed By: #### L 501.2300, L500.4050, L501.9520, L501.5200, L506.0400, L100.0100 ####[facility] [address] [place], [address] Glucose [Mass/Vol] 162 mg/dL High 70-99 [facility] Comment on above: Performed By: #### L 501.2300, L500.4050, L501.9520, L501.5200, L506.0400, L100.0100 ####[facility] [address] [place], [address] Potassium [Moles/Vol] 3.9 mmol/L Normal 3.3-5.1 [facility] Comment on above: Performed By: #### L 501.2300, L500.4050, L501.9520, L501.5200, L506.0400, L100.0100 ####[facility] [address] [place], [address] Sodium [Moles/Vol] 139 mmol/L Normal 133-145 [facility] Comment on above: Performed By: #### L 501.2300, L500.4050, L501.9520, L501.5200, L506.0400, L100.0100 ####[facility] [address] [place], [address] T PROT 6.4 g/dL Normal 5.9-8.4 [facility] Comment on above: Performed By: #### L 501.2300, L500.4050, L501.9520, L501.5200, L506.0400, L100.0100 ####[facility] [address] [place], [address] Urea nitrogen [Mass/Vol] 6 mg/dL Normal 4-19 [facility] Comment on above: Performed By: #### L 501.2300, L500.4050, L501.9520, L501.5200, L506.0400, L100.0100 ####[facility] [address] [place], [address] Magnesiumon 12-16-2024 Magnesium [Mass/Vol] 1.5 mg/dL Normal 1.5-2.2 [facility] Comment on above: Performed By: #### L 501.2300, L500.4050, L501.9520, L501.5200, L506.0400, L100.0100 ####[facility] [address] [place], [address] Oncology Visit Reporton Oncology Visit Report Normal [facility] Phosphoruson 12-16-2024 Phosphate [Mass/Vol] 3.1 mg/dL Normal 2.7-4.5 [facility] Comment on above: Performed By: #### L 501.2300, L500.4050, L501.9520, L501.5200, L506.0400, L100.0100 ####[facility] [address] [place], [address] T4 Free Directon 12-16-2024 T4 FREE DIRECT 1.40 ng/dL Normal 0.76-1.46 [facility] Comment on above: Performed By: #### L 501.2300, L500.4050, L501.9520, L501.5200, L506.0400, L100.0100 ####[facility] [address] [place], [address] Thyroid Stim Hormone (TSH)on 12-16-2024 TSH 5.070 uIU/mL High 0.300-4.200 [facility] Comment on above: Performed By: #### L 501.2300, L500.4050, L501.9520, L501.5200, L506.0400, L100.0100 ####[facility] [address] [place], [address] Chest 1 View (Portable)on Chest 1 View (Portable) Normal [facility] Discharge Instructionon 11-16 Discharge Instruction Normal [facility] MR/POSTOP.ANEon 12-12-2024 MR/POSTOP.ANE Normal [facility] MR/QQICLTYW0hs 12-12-2024 MR/POSTOPAN2 Normal [facility] Operative Reporton Operative Report Normal [facility] MR/PAT.ANEon 12-11-2024 MR/PAT.ANE Normal [facility] Surgery Visit Reporton 12-10 Surgery Visit Report Normal [facility] Absolute neutrophil countOrd ered By: Sherice Fernandez on 12-09-2024 Neutrophils (Bld) [#/Vol] 6.7 10*3/uL 2.0-7.7 [facility] Anion gap in Serum or Plasma Ordered By: Sherice Fernandez on 12-09-2024 Anion gap [Moles/Vol] 14 mmol/L 5-15 [facility] BUN/creatinine ratioOrdered By: Sherice Fernandez on 12-09-2024 Urea nitrogen/Creatinine [Mass ratio] 7.9 mg/mg Low 10-20 [facility] Basophil percentageOrdered B y: Sherice Fernandez on 12-09-2024 Basophils/100 WBC (Bld) 0.9 % 0-1 [facility] Bilirubin, totalOrdered By: Sherice Fernandez on 12-09-2024 Bilirubin [Mass/Vol] 1.84 mg/dL High 0.00-1.30 [facility] CBC W/Diff, Automatedon 11-16 PLT EST MOD DEC Normal ADEQ [facility] Comment on above: Performed By: #### L 501.2300, L100.0100, L501.5200 ####[facility] [address] [place], [address] SMEAR COMMENT SCANNED Normal [facility] Comment on above: Performed By: #### L 501.2300, L100.0100, L501.5200 ####[facility] [address] [place], [place], [id number] Carbon dioxide, total [Moles /volume] in Central venous bloodOrdered By: Carmellaadrian Fernandez on 12-09-2024 CO2 [Moles/Vol] 22.3 mmol/L 21.0-32.0 [facility] Chloride assayOrdered By: Melva jaqueline Jim on 12-09-2024 Chloride [Moles/Vol] 102 mmol/L 98-108 [facility] Comprehensive Metabolic Prof ilon 12-09-2024 Albumin [Mass/Vol] 3.3 g/dL Low 3.4-4.8 [facility] Comment on above: Performed By: #### L 500.4050 ####[facility] [address] [place], [place], [id number] Albumin/Globulin [Mass ratio] 1.2 {ratio} Normal 0.9-2.4 [facility] Comment on above: Performed By: #### L 500.4050 ####[facility] [address] [place], [place], [phone] ALK PHOS 685 U/L High 35-104 [facility] Comment on above: Performed By: #### L 500.4050 ####[facility] [address] [place], [address] ALT [Catalytic activity/Vol] 88 U/L High <=34 [facility] Comment on above: Performed By: #### L 500.4050 ####[facility] [address] [place], [address] AST [Catalytic activity/Vol] 248 U/L High <=31 [facility] Comment on above: Performed By: #### L 500.4050 ####[facility] [address] [place], [address] Bilirubin [Mass/Vol] 1.84 mg/dL High 0.00-1.30 [facility] Comment on above: Performed By: #### L 500.4050 ####[facility] [address] [place], [address] BUN/CRE 7.9 RATIO Low 10-20 [facility] Comment on above: Performed By: #### L 500.4050 ####[facility] [address] [place], [address] Calcium [Mass/Vol] 8.9 mg/dL Normal 7.6-11.0 [facility] Comment on above: Performed By: #### L 500.4050 ####[facility] [address] [place], [address] Chloride [Moles/Vol] 102 mmol/L Normal 98-108 [facility] Comment on above: Performed By: #### L 500.4050 ####[facility] [address] [place], [address] CO2 [Moles/Vol] 22.3 mmol/L Normal 21.0-32.0 [facility] Comment on above: Performed By: #### L 500.4050 ####[facility] [address] [place], [address] Creatinine [Mass/Vol] 0.84 mg/dL Normal 0.70-1.20 [facility] Comment on above: Performed By: #### L 500.4050 ####[facility] [address] [place], [address] ECRCL 57.91 ml/min Normal 50-250 [facility] Comment on above: Performed By: #### L 500.4050 ####[facility] [address] [place], [address] GAP 14 Normal 5-15 [facility] Comment on above: Performed By: #### L 500.4050 ####[facility] [address] [place], [address] GFR/1.73 sq M.predicted among non-blacks MDRD (S/P/Bld) [Vol rate/Area] 75 mL/min/{1.73_m2} Normal >60 [facility] Comment on above: Result Comment: mL/m in/1.73m2 CKD-EPI Creatinine Equation (2020) Performed By: #### L 500.4050 ####[facility] [address] [place], [address] Globulin (S) [Mass/Vol] 2.9 g/dL Normal 2.2-4.2 [facility] Comment on above: Performed By: #### L 500.4050 ####[facility] [address] [place], [address] Glucose [Mass/Vol] 134 mg/dL High 70-99 [facility] Comment on above: Performed By: #### L 500.4050 ####[facility] [address] [place], [address] Potassium [Moles/Vol] 4.4 mmol/L Normal 3.3-5.1 [facility] Comment on above: Performed By: #### L 500.4050 ####[facility] [address] [place], [address] Sodium [Moles/Vol] 138 mmol/L Normal 133-145 [facility] Comment on above: Performed By: #### L 500.4050 ####[facility] [address] [place], [address] T PROT 6.2 g/dL Normal 5.9-8.4 [facility] Comment on above: Performed By: #### L 500.4050 ####[facility] [address] [place], [address] Urea nitrogen [Mass/Vol] 7 mg/dL Normal 4-19 [facility] Comment on above: Performed By: #### L 500.4050 ####[facility] [address] [place], [address] Eosinophil percentageOrdered By: [facility] on 12-09-2024 Eosinophils/100 WBC (Bld) 0.1 % 0-5 [facility] Erythrocyte distribution wid th ratioOrdered By: [facility] on 12-09-2024 Erythrocyte distribution width (RBC) [Ratio] 19.4 % High 11.6-14.6 [facility] Erythrocyte distribution wid th standard deviationOrdered By: [facility] on 12-09-2024 Erythrocyte distribution width (RBC) [Entitic vol] 59.1 fL High 35.1-43.9 [facility] Estimation of creatinine lubna aranceOrdered By: Sherice Fernandez on 12-09-2024 Estimated Creatinine Clearance Calc 57.91 ml/min 50-250 [facility] GFR/1.73 sq M.predicted mary g non-blacks MDRD (S/P/Bld) [Vol rate/Area]Ordered By: Sherice Fernandez on 12-09-2024 Estimated GFR (MDRD) Non-Af Amer 75 >60 [facility] Comment on above: mL/min/1.73m2 CKD-EP I Creatinine Equation (2020) Hematocrit Auto (Bld) [Volum e fraction]Ordered By: Sherice Fernandez on 12-09-2024 Hematocrit (Bld) [Volume fraction] 34.2 % Low 37-47 [facility] Hemoglobin measurementOrdere d By: Sherice Fernandez on 12-09-2024 Hemoglobin (Bld) [Mass/Vol] 11.4 g/dL Low 12.0-15.0 [facility] Immature granulocytes/100 WB C Auto (Bld)Ordered By: Sehrice Fernandez on 12-09-2024 Immature granulocytes/100 WBC (Bld) 3.400 % High 0.0-0.9 [facility] Comment on above: IG% - Immature Granu locytes (promyelocytes, myelocytes and metamyelocytes) > 1% indicates that a LEFT SHIFT is Present. Laboratory - Chemistry and C hemistry - challengeOrdered By: Sherice eFrnandez on 12-09-2024 AST [Catalytic activity/Vol] 248 U/L High <32 [facility] Lymphocytes Auto (Unsp spec) [#/Vol]Ordered By: Sherice Fernandez on 12-09-2024 Lymphocytes (Bld) [#/Vol] 1.01 10*3/uL 0.83-4.51 [facility] Lymphocytes/100 WBC Auto (Un sp spec)Ordered By: Sherice Fernandez on 12-09-2024 Lymphocytes/100 WBC (Bld) 11.0 % Low 19-41 [facility] MCV (mean corpuscular volume ) determinationOrdered By: Sherice Fernandez on 12-09-2024 MCV (RBC) [Entitic vol] 87.9 fL 81-99 [facility] Magnesiumon 12-09-2024 Magnesium [Mass/Vol] 1.4 mg/dL Low 1.5-2.2 [facility] Comment on above: Performed By: #### L 501.2300, L100.0100, L501.5200 ####[facility] [address] [place], [address] Magnesium (Unsp spec) [Mass/ Vol]Ordered By: Sherice Fernandez on 12-09-2024 Magnesium [Mass/Vol] 1.4 mg/dL Low 1.5-2.2 [facility] Manual differential comment Scott (Bld) [Interp]Ordered By: Sherice Fernandez on 12-09-2024 Differential Comment SCANNED [facility] Mean corpuscular hemoglobin (MCH) determinationOrdered By: Sherice Fernandez on 12-09-2024 MCH (RBC) [Entitic mass] 29.3 pg 27.0-32.0 [facility] Mean corpuscular hemoglobin concentration (MCHC) determinationOrdered By: [facility] on 12-09-2024 MCHC (RBC) [Mass/Vol] 33.3 g/dL 32-36 [facility] Mean platelet volume determi nationOrdered By: Sherice Fernandez on 12-09-2024 Platelet mean volume (Bld) [Entitic vol] 11.8 fL 6.2-12.0 [facility] Monocyte percentageOrdered B y: Sherice Fernandez on 12-09-2024 Monocytes/100 WBC (Bld) 12.3 % High 0-10 [facility] Neutrophil percentageOrdered By: Sherice Fernandez on 12-09-2024 Neutrophils/100 WBC (Bld) 72.3 % High 47-70 [facility] Nucleated red blood cell per centageOrdered By: Sherice Fernandez on 12-09-2024 Nucleated RBC/100 WBC (Bld) [Ratio] 0.2 % 0-5 [facility] Oncology Visit Reporton 11-16 Oncology Visit Report Normal [facility] Phosphoruson 12-09-2024 Phosphate [Mass/Vol] 3.0 mg/dL Normal 2.7-4.5 [facility] Comment on above: Performed By: #### L 501.2300, L100.0100, L501.5200 ####[facility] [address] [place], [address] Platelet countOrdered By: Melva Fernandez on 12-09-2024 Platelets (Bld) [#/Vol] 87 10*3/uL Low 150-450 [facility] Platelets LM Ql (Bld)Ordered By: Sherice Fernandez on 12-09-2024 Platelet Estimate MOD DEC ADEQ [facility] Potassium (Unsp spec) [Mass/ Vol]Ordered By: Sherice Fernandez on 12-09-2024 Potassium [Moles/Vol] 4.4 mmol/L 3.3-5.1 [facility] RBC Auto (Bld) [#/Vol]Ordere d By: Sherice Fernandez on 12-09-2024 RBC (Bld) [#/Vol] 3.89 10*6/uL Low 4.2-5.4 [facility] Serum creatinine measurement (mass/volume)Ordered By: Sherice Fernandez on 12-09-2024 Creatinine [Mass/Vol] 0.84 mg/dL 0.70-1.20 [facility] Serum globulin measurementOr dered By: Sherice Fernandez on 12-09-2024 Globulin (S) [Mass/Vol] 2.9 g/dL 2.2-4.2 [facility] Serum glucose measurement (m ass/volume)Ordered By: Sherice Fernandez on 12-09-2024 Glucose [Mass/Vol] 134 mg/dL High 70-99 [facility] Serum or plasma alanine encarnacion otransferase (ALT) measurementOrdered By: Sherice Fernandez on 12-09-2024 ALT [Catalytic activity/Vol] 88 U/L High <35 [facility] Serum or plasma albumin jayro urement (mass/volume)Ordered By: Sherice Fernandez on 12-09-2024 Albumin [Mass/Vol] 3.3 g/dL Low 3.4-4.8 [facility] Serum or plasma albumin/glob ulin mass ratioOrdered By: Sherice Fernandez on 12-09-2024 Albumin/Globulin [Mass ratio] 1.2 {ratio} 0.9-2.4 [facility] Serum or plasma alkaline lukas sphatase measurementOrdered By: Sherice Fernandez on 12-09-2024 ALP [Catalytic activity/Vol] 685 U/L High 35-104 [facility] Serum or plasma calcium jayro urement (mass/volume)Ordered By: Sherice Fernandez on 12-09-2024 Calcium [Mass/Vol] 8.9 mg/dL 7.6-11.0 [facility] Serum or plasma urea nitroge n measurement (mass/volume)Ordered By: Sherice Fernandez on 12-09-2024 Urea nitrogen [Mass/Vol] 7 mg/dL 4-19 [facility] Serum phosphorus measurement Ordered By: Sherice Fernandez on 12-09-2024 Phosphorus Level 3.0 mg/dL 2.7-4.5 [facility] Sodium levelOrdered By: Carmella Fernandez on 12-09-2024 Sodium [Moles/Vol] 138 mmol/L 133-145 [facility] Total proteinOrdered By: Nain Fernandez on 12-09-2024 Protein [Mass/Vol] 6.2 g/dL 5.9-8.4 [facility] White blood cell (WBC) count Ordered By: Sherice Fernandez on 12-09-2024 WBC (Bld) [#/Vol] 9.2 10*3/uL 4.4-11.0 [facility] Brain W/WO Contraston 2024 Brain W/WO Contrast Normal [facility] Magnetic resonance imaging r eportOrdered By: Dillon Mullen on 12-03-2024 Study report [facility] Imaging Services [address] [place] [address] Brain W/WO Contrast MR#: [id number] Acct: [id number] Name: BETSY RODRIGEZ Rep #: [id number] : 1955 F 69 From: Tasha Mullen MD PCP: Dr. Fabricio Lemos MD Status: REG CLI Study:Brain W/WO Contrast Date of Exam: 12/03/24 Exam# [id number] Ordering Dr: Sherice Fernandez MD PROCEDURE: BRAIN [...] 3. Additional description as above. Reading Location: [facility] CC: Dr. Fabricio Lemos MD; Dr. Sherice Fernandez MD ~ [employer] Spot Picker: Signed [facility] Basic Metabolic Profile (BMP )on 12-02-2024 BUN/CRE 20.6 RATIO High 10-20 [facility] Comment on above: Performed By: #### L 501.5200, L500.2500, L100.0100, L501.2300 ####[facility] [address] [place], [address] Calcium [Mass/Vol] 10.0 mg/dL Normal 7.6-11.0 [facility] Comment on above: Performed By: #### L 501.5200, L500.2500, L100.0100, L501.2300 ####[facility] [address] [place], [address] Chloride [Moles/Vol] 102 mmol/L Normal 98-108 [facility] Comment on above: Performed By: #### L 501.5200, L500.2500, L100.0100, L501.2300 ####[facility] [address] [place], [address] CO2 [Moles/Vol] 22.1 mmol/L Normal 21.0-32.0 [facility] Comment on above: Performed By: #### L 501.5200, L500.2500, L100.0100, L501.2300 ####[facility] [address] [place], [address] Creatinine [Mass/Vol] 0.95 mg/dL Normal 0.70-1.20 [facility] Comment on above: Performed By: #### L 501.5200, L500.2500, L100.0100, L501.2300 ####[facility] [address] [place], [address] ECRCL 52.76 ml/min Normal 50-250 [facility] Comment on above: Performed By: #### L 501.5200, L500.2500, L100.0100, L501.2300 ####[facility] [address] [place], [address] GAP 14 Normal 5-15 [facility] Comment on above: Performed By: #### L 501.5200, L500.2500, L100.0100, L501.2300 ####[facility] [address] [place], [address] GFR/1.73 sq M.predicted among non-blacks MDRD (S/P/Bld) [Vol rate/Area] 64 mL/min/{1.73_m2} Normal >60 [facility] Comment on above: Result Comment: mL/m in/1.73m2 CKD-EPI Creatinine Equation (2020) Performed By: #### L 501.5200, L500.2500, L100.0100, L501.2300 ####[facility] [address] [place], [address] Glucose [Mass/Vol] 167 mg/dL High 70-99 [facility] Comment on above: Performed By: #### L 501.5200, L500.2500, L100.0100, L501.2300 ####[facility] [address] [place], [address] Potassium [Moles/Vol] 4.3 mmol/L Normal 3.3-5.1 [facility] Comment on above: Performed By: #### L 501.5200, L500.2500, L100.0100, L501.2300 ####[facility] [address] [place], [address] Sodium [Moles/Vol] 138 mmol/L Normal 133-145 [facility] Comment on above: Performed By: #### L 501.5200, L500.2500, L100.0100, L501.2300 ####[facility] [address] [place], [address] Urea nitrogen [Mass/Vol] 20 mg/dL High 4-19 [facility] Comment on above: Performed By: #### L 501.5200, L500.2500, L100.0100, L501.2300 ####[facility] [address] [place], [address] Bilirubin directOrdered By: Sharda Bronson on 12-02-2024 Bilirubin.direct [Mass/Vol] 3.44 mg/dL High 0.00-0.30 [facility] Blood band neutrophil count as percentage of total leukocytesOrdered By: Sherice Fernandez on 12-02-2024 Band form neutrophils/100 WBC (Bld) 7 % High 0-5 [facility] Blood lymphocytes/100 leukoc ytesOrdered By: Sherice Fernandez on 12-02-2024 Lymphocytes/100 WBC (Bld) 10 % Low 19-41 [facility] Blood metamyelocytes/100 isa kocytesOrdered By: Sherice Fernandez on 12-02-2024 Metamyelocytes/100 WBC (Bld) 1 % 0-1 [facility] Blood monocytes/100 leukocyt esOrdered By: [facility] on 12-02-2024 Monocytes/100 WBC (Bld) 3 % 0-10 [facility] Cells counted Molgen (Bld/Ti ss) [#]Ordered By: Sherice Fernandez on 12-02-2024 Differential Total Cells Counted 100 MANUAL DIFF [facility] Erythrocyte morphology asses smentOrdered By: Sherice Fernandez on 12-02-2024 RBC morphology finding Nom (Bld) NORM C+C NORMAL NORM C&C [facility] Liver Profileon 12-02-2024 Albumin [Mass/Vol] 3.5 g/dL Normal 3.4-4.8 [facility] Comment on above: Order Comment: ADD O N TG4 5 J Performed By: #### L 500.3400 ####[facility] [address] [place], [place], [address] ALK PHOS 648 U/L High 35-104 [facility] Comment on above: Order Comment: ADD O N TG4 5 J Performed By: #### L 500.3400 ####[facility] [address] [place], [address] ALT [Catalytic activity/Vol] 157 U/L High <=34 [facility] Comment on above: Order Comment: ADD O N TG4 5 J Performed By: #### L 500.3400 ####[facility] [address] [place], [address] AST [Catalytic activity/Vol] 408 U/L High <=31 [facility] Comment on above: Order Comment: ADD O N TG4 5 J Performed By: #### L 500.3400 ####[facility] [address] [place], [address] Bilirubin [Mass/Vol] 4.41 mg/dL High 0.00-1.30 [facility] Comment on above: Order Comment: ADD O N TG4 5 J Performed By: #### L 500.3400 ####[facility] [address] [place], [address] Bilirubin.direct [Mass/Vol] 3.44 mg/dL High 0.00-0.30 [facility] Comment on above: Order Comment: ADD O N TG4 5 J Performed By: #### L 500.3400 ####[facility] [address] [place], [address] Globulin (S) [Mass/Vol] 3.0 g/dL Normal 2.2-4.2 [facility] Comment on above: Order Comment: ADD O N TG4 5 J Performed By: #### L 500.3400 ####[facility] [address] [place], [address] T PROT 6.5 g/dL Normal 5.9-8.4 [facility] Comment on above: Order Comment: ADD O N TG4 5 J Performed By: #### L 500.3400 ####[facility] [address] [place], [address] Magnesiumon 12-02-2024 Magnesium [Mass/Vol] 1.4 mg/dL Low 1.5-2.2 [facility] Comment on above: Performed By: #### L 501.5200, L500.2500, L100.0100, L501.2300 ####[facility] [address] [place], [address] Oncology Visit Reporton 11-15 Oncology Visit Report Normal [facility] Pathologist review Scott (Unsp spec) [Interp]Ordered By: Sherice Fernandez on 12-02-2024 Differential Pathologist's Review May anastasia [facility] Phosphoruson 12-02-2024 Phosphate [Mass/Vol] 3.0 mg/dL Normal 2.7-4.5 [facility] Comment on above: Performed By: #### L 501.5200, L500.2500, L100.0100, L501.2300 ####[facility] [address] [place], [address] RBC morphology finding Nom ( Bld)Ordered By: Sherice Fernandez on 12-02-2024 Red Blood Cell Morphology NORM C+C NORMAL NORM C&C [facility] Segmented neutrophils/100 WB C (Bld)Ordered By: Sherice Fernandez on 12-02-2024 Neutrophils/100 WBC (Bld) 79 % High 47-70 [facility] CBC W/Diff, Automatedon 11-15 Absolute Neut Normal 2.0-7.7 [facility] Comment on above: Result Comment: PER JESSE NURSE CBCD NOT NEEDED Performed By: #### L 100.0100, L500.4050 ####[facility] [address] [place], [address] HCT Normal 37-47 [facility] Comment on above: Result Comment: PER JESSE NURSE CBCD NOT NEEDED Performed By: #### L 100.0100, L500.4050 ####[facility] [address] [place], [address] HGB Normal 12.0-15.0 [facility] Comment on above: Result Comment: PER JESSE NURSE CBCD NOT NEEDED Performed By: #### L 100.0100, L500.4050 ####[facility] [address] [place], [address] MCH Normal 27.0-32.0 [facility] Comment on above: Result Comment: PER JESSE NURSE CBCD NOT NEEDED Performed By: #### L 100.0100, L500.4050 ####[facility] [address] [place], [address] MCHC Normal 32-36 [facility] Comment on above: Result Comment: PER JESSE NURSE CBCD NOT NEEDED Performed By: #### L 100.0100, L500.4050 ####[facility] [address] [place], [address] MCV Normal 81-99 [facility] Comment on above: Result Comment: PER JESSE NURSE CBCD NOT NEEDED Performed By: #### L 100.0100, L500.4050 ####[facility] [address] [place], [address] NEUT% Normal 47-70 [facility] Comment on above: Result Comment: PER JESSE NURSE CBCD NOT NEEDED Performed By: #### L 100.0100, L500.4050 ####[facility] [address] [place], [address] PLT Normal 150-450 [facility] Comment on above: Result Comment: PER JESSE NURSE CBCD NOT NEEDED Performed By: #### L 100.0100, L500.4050 ####[facility] [address] [place], [address] RBC Normal 4.2-5.4 [facility] Comment on above: Result Comment: PER JESSE NURSE CBCD NOT NEEDED Performed By: #### L 100.0100, L500.4050 ####[facility] [address] [place], [address] RDW CV Normal 11.6-14.6 [facility] Comment on above: Result Comment: PER JESSE NURSE CBCD NOT NEEDED Performed By: #### L 100.0100, L500.4050 ####[facility] [address] [place], [address] RDW SD Normal 35.1-43.9 [facility] Comment on above: Result Comment: PER JESSE NURSE CBCD NOT NEEDED Performed By: #### L 100.0100, L500.4050 ####[facility] [address] [place], [address] WBC Normal 4.4-11.0 [facility] Comment on above: Result Comment: PER JESSE NURSE CBCD NOT NEEDED Performed By: #### L 100.0100, L500.4050 ####[facility] [address] [place], [address] Comprehensive Metabolic Prof vaon 11-25-2024 Albumin [Mass/Vol] 3.5 g/dL Normal 3.4-4.8 [facility] Comment on above: Performed By: #### L 100.0100, L500.4050 ####[facility] [address] [place], [address] Albumin/Globulin [Mass ratio] 1.1 {ratio} Normal 0.9-2.4 [facility] Comment on above: Performed By: #### L 100.0100, L500.4050 ####[facility] [address] [place], [address] ALK PHOS 582 U/L High 35-104 [facility] Comment on above: Performed By: #### L 100.0100, L500.4050 ####[place] [facility] [address] [place], [address] ALT [Catalytic activity/Vol] 159 U/L High <=34 [facility] Comment on above: Performed By: #### L 100.0100, L500.4050 ####[facility] [address] [place], [address] AST [Catalytic activity/Vol] 698 U/L High <=31 [facility] Comment on above: Performed By: #### L 100.0100, L500.4050 ####[facility] [address] [place], [address] Bilirubin [Mass/Vol] 3.65 mg/dL High 0.00-1.30 [facility] Comment on above: Performed By: #### L 100.0100, L500.4050 ####[facility] [address] [place], [address] BUN/CRE 15.4 RATIO Normal 10-20 [facility] Comment on above: Performed By: #### L 100.0100, L500.4050 ####[facility] [address] [place], [address] Calcium [Mass/Vol] 11.4 mg/dL High 7.6-11.0 [facility] Comment on above: Performed By: #### L 100.0100, L500.4050 ####[facility] [address] [place], [address] Chloride [Moles/Vol] 101 mmol/L Normal 98-108 [facility] Comment on above: Performed By: #### L 100.0100, L500.4050 ####[facility] [address] [place], [address] CO2 [Moles/Vol] 18.1 mmol/L Low 21.0-32.0 [facility] Comment on above: Performed By: #### L 100.0100, L500.4050 ####[facility] [address] [place], [address] Creatinine [Mass/Vol] 1.09 mg/dL Normal 0.70-1.20 [facility] Comment on above: Performed By: #### L 100.0100, L500.4050 ####[facility] [address] [place], [address] ECRCL 45.19 ml/min Low 50-250 [facility] Comment on above: Performed By: #### L 100.0100, L500.4050 ####[facility] [address] [place], [address] GAP 18 High 5-15 [facility] Comment on above: Performed By: #### L 100.0100, L500.4050 ####[facility] [address] [place], [address] GFR/1.73 sq M.predicted among non-blacks MDRD (S/P/Bld) [Vol rate/Area] 55 mL/min/{1.73_m2} Low >60 [facility] Comment on above: Result Comment: mL/m in/1.73m2 CKD-EPI Creatinine Equation (2020) Performed By: #### L 100.0100, L500.4050 ####[facility] [address] [place], [address] Globulin (S) [Mass/Vol] 3.1 g/dL Normal 2.2-4.2 [facility] Comment on above: Performed By: #### L 100.0100, L500.4050 ####[facility] [address] [place], [address] Glucose [Mass/Vol] 111 mg/dL High 70-99 [facility] Comment on above: Performed By: #### L 100.0100, L500.4050 ####[facility] [address] [place], [address] Potassium [Moles/Vol] 3.8 mmol/L Normal 3.3-5.1 [facility] Comment on above: Performed By: #### L 100.0100, L500.4050 ####[facility] [address] [place], [address] Sodium [Moles/Vol] 138 mmol/L Normal 133-145 [facility] Comment on above: Performed By: #### L 100.0100, L500.4050 ####[facility] [address] [place], [address] T PROT 6.5 g/dL Normal 5.9-8.4 [facility] Comment on above: Performed By: #### L 100.0100, L500.4050 ####[facility] [address] [place], [address] Urea nitrogen [Mass/Vol] 17 mg/dL Normal 4-19 [facility] Comment on above: Performed By: #### L 100.0100, L500.4050 ####[facility] [address] [place], [address] ALB Normal 3.4-4.8 [facility] Comment on above: Result Comment: THER E WAS TX PLAN DUPLICATED NEEDS Performed By: #### L 500.4050 ####[facility] [address] [place], [address] ALK PHOS Normal 35-104 [facility] Comment on above: Result Comment: THER E WAS TX PLAN DUPLICATED NEEDS Performed By: #### L 500.4050 ####[facility] [address] [place], [address] ALT Normal <=34 [facility] Comment on above: Result Comment: THER E WAS TX PLAN DUPLICATED NEEDS Performed By: #### L 500.4050 ####[facility] [address] [place], [address] AST Normal <=31 [facility] Comment on above: Result Comment: THER E WAS TX PLAN DUPLICATED NEEDS Performed By: #### L 500.4050 ####[facility] [address] [place], [address] BUN Normal 4-19 [facility] Comment on above: Result Comment: THER E WAS TX PLAN DUPLICATED NEEDS Performed By: #### L 500.4050 ####[facility] [address] [place], [address] BUN/CRE Normal 10-20 [facility] Comment on above: Result Comment: THER E WAS TX PLAN DUPLICATED NEEDS Performed By: #### L 500.4050 ####[facility] [address] [place], [address] Calcium Normal 7.6-11.0 [facility] Comment on above: Result Comment: THER E WAS TX PLAN DUPLICATED NEEDS Performed By: #### L 500.4050 ####[facility] [address] [place], [address] CL Normal 98-108 [facility] Comment on above: Result Comment: THER E WAS TX PLAN DUPLICATED NEEDS Performed By: #### L 500.4050 ####[facility] [address] [place], [address] CO2 Normal 21.0-32.0 [facility] Comment on above: Result Comment: THER E WAS TX PLAN DUPLICATED NEEDS Performed By: #### L 500.4050 ####[facility] [address] [place], [address] CREAT,SERUM Normal 0.70-1.20 [facility] Comment on above: Result Comment: THER E WAS TX PLAN DUPLICATED NEEDS Performed By: #### L 500.4050 ####[facility] [address] [place], [address] eGFR Normal >60 [facility] Comment on above: Result Comment: THER E WAS TX PLAN DUPLICATED NEEDS Performed By: #### L 500.4050 ####[facility] [address] [place], [address] GAP Normal 5-15 [facility] Comment on above: Result Comment: THER E WAS TX PLAN DUPLICATED NEEDS Performed By: #### L 500.4050 ####[facility] [address] [place], [address] GLU Normal 70-99 [facility] Comment on above: Result Comment: THER E WAS TX PLAN DUPLICATED NEEDS Performed By: #### L 500.4050 ####[facility] [address] [place], [address] Potassium Normal 3.3-5.1 [facility] Comment on above: Result Comment: THER E WAS TX PLAN DUPLICATED NEEDS Performed By: #### L 500.4050 ####[facility] [address] [place], [address] T BILI Normal 0.00-1.30 [facility] Comment on above: Result Comment: THER E WAS TX PLAN DUPLICATED NEEDS Performed By: #### L 500.4050 ####[facility] [address] [place], [address] T PROT Normal 5.9-8.4 [facility] Comment on above: Result Comment: THER E WAS TX PLAN DUPLICATED NEEDS Performed By: #### L 500.4050 ####[facility] [address] [place], [address] Comprehensive Metabolic Profil Normal 133-145 [facility] Comment on above: Result Comment: THER E WAS TX PLAN DUPLICATED NEEDS Performed By: #### L 500.4050 ####[facility] [address] [place], [address] CBC W/Diff, Automatedon 03-1 0-2024 Absolute Lymph 0.81 X10 3/uL Low 0.83-4.51 [facility] Comment on above: Performed By: #### L 100.0100, L500.4050 ####[facility] [address] [place], [address] Absolute Neut 6.9 X10 3/uL Normal 2.0-7.7 [facility] Comment on above: Performed By: #### L 100.0100, L500.4050 ####[facility] [address] [place], [address] Basophils/100 WBC (Bld) 0.4 % Normal 0-1 [facility] Comment on above: Performed By: #### L 100.0100, L500.4050 ####[facility] [address] [place], [address] Eosinophils/100 WBC (Bld) 0.1 % Normal 0-5 [facility] Comment on above: Performed By: #### L 100.0100, L500.4050 ####[facility] [address] [place], [address] Erythrocyte distribution width (RBC) [Ratio] 18.2 % High 11.6-14.6 [facility] Comment on above: Performed By: #### L 100.0100, L500.4050 ####[facility] [address] [place], [address] Hematocrit (Bld) [Volume fraction] 41.0 % Normal 37-47 [facility] Comment on above: Performed By: #### L 100.0100, L500.4050 ####[facility] [address] [place], [address] Hemoglobin (Bld) [Mass/Vol] 13.4 g/dL Normal 12.0-15.0 [facility] Comment on above: Performed By: #### L 100.0100, L500.4050 ####[facility] [address] [place], [address] IG% 0.700 Normal 0.0-0.9 [facility] Comment on above: Result Comment: IG% - Immature Granulocytes (promyelocytes, myelocytes andmetamyelocytes) > 1% indicates that a LEFT SHIFT is Present. Performed By: #### L 100.0100, L500.4050 ####[facility] [address] [place], [address] Lymphocytes/100 WBC (Bld) 9.0 % Low 19-41 [facility] Comment on above: Performed By: #### L 100.0100, L500.4050 ####[facility] [address] [place], [address] MCH (RBC) [Entitic mass] 28.6 pg Normal 27.0-32.0 [facility] Comment on above: Performed By: #### L 100.0100, L500.4050 ####[facility] [address] [place], [address] MCHC (RBC) [Mass/Vol] 32.7 g/dL Normal 32-36 [facility] Comment on above: Performed By: #### L 100.0100, L500.4050 ####[facility] [address] [place], [address] MCV (RBC) [Entitic vol] 87.4 fL Normal 81-99 [facility] Comment on above: Performed By: #### L 100.0100, L500.4050 ####[facility] [address] [place], [address] Monocytes/100 WBC (Bld) 13.4 % High 0-10 [facility] Comment on above: Performed By: #### L 100.0100, L500.4050 ####[facility] [address] [place], [address] Neutrophils/100 WBC (Bld) 76.4 % High 47-70 [facility] Comment on above: Performed By: #### L 100.0100, L500.4050 ####[facility] [address] [place], [address] Nucleated RBC (Bld) [#/Vol] 0.2 10*3/uL Normal 0-5 [facility] Comment on above: Performed By: #### L 100.0100, L500.4050 ####[facility] [address] [place], [address] Platelet mean volume (Bld) [Entitic vol] 11.3 fL Normal 6.2-12.0 [facility] Comment on above: Performed By: #### L 100.0100, L500.4050 ####[facility] [address] [place], [address] Platelets (Bld) [#/Vol] 340 10*3/uL Normal 150-450 [facility] Comment on above: Performed By: #### L 100.0100, L500.4050 ####[facility] [address] [place], [address] RBC (Bld) [#/Vol] 4.69 10*6/uL Normal 4.2-5.4 [facility] Comment on above: Performed By: #### L 100.0100, L500.4050 ####[facility] [address] [place], [address] RDW SD 56.8 fl High 35.1-43.9 [facility] Comment on above: Performed By: #### L 100.0100, L500.4050 ####[facility] [address] [place], [address] WBC (Bld) [#/Vol] 9.0 10*3/uL Normal 4.4-11.0 [facility] Comment on above: Performed By: #### L 100.0100, L500.4050 ####[facility] [address] [place], [address] Comprehensive Metabolic Prof ilon 11-24-2024 Albumin [Mass/Vol] 3.6 g/dL Normal 3.4-4.8 [facility] Comment on above: Performed By: #### L 100.0100, L500.4050 ####[facility] [address] [place], [address] Albumin/Globulin [Mass ratio] 1.1 {ratio} Normal 0.9-2.4 [facility] Comment on above: Performed By: #### L 100.0100, L500.4050 ####[facility] [address] [place], [address] ALK PHOS 606 U/L High 35-104 [facility] Comment on above: Performed By: #### L 100.0100, L500.4050 ####[facility] [address] [place], [address] ALT [Catalytic activity/Vol] 164 U/L High <=34 [facility] Comment on above: Performed By: #### L 100.0100, L500.4050 ####[facility] [address] [place], [address] AST [Catalytic activity/Vol] 675 U/L High <=31 [facility] Comment on above: Performed By: #### L 100.0100, L500.4050 ####[facility] [address] [place], [address] Bilirubin [Mass/Vol] 3.14 mg/dL High 0.00-1.30 [facility] Comment on above: Performed By: #### L 100.0100, L500.4050 ####[facility] [address] [place], [address] BUN/CRE 17.6 RATIO Normal 10-20 [facility] Comment on above: Performed By: #### L 100.0100, L500.4050 ####[facility] [address] [place], [address] Calcium [Mass/Vol] 11.8 mg/dL High 7.6-11.0 [facility] Comment on above: Performed By: #### L 100.0100, L500.4050 ####[facility] [address] [place], [address] Chloride [Moles/Vol] 100 mmol/L Normal 98-108 [facility] Comment on above: Performed By: #### L 100.0100, L500.4050 ####[facility] [address] [place], [address] CO2 [Moles/Vol] 21.0 mmol/L Normal 21.0-32.0 [facility] Comment on above: Performed By: #### L 100.0100, L500.4050 ####[facility] [address] [place], [address] Creatinine [Mass/Vol] 1.29 mg/dL High 0.70-1.20 [facility] Comment on above: Performed By: #### L 100.0100, L500.4050 ####[facility] [address] [place], [address] ECRCL 38.19 ml/min Low 50-250 [facility] Comment on above: Performed By: #### L 100.0100, L500.4050 ####[facility] [address] [place], [address] GAP 17 High 5-15 [facility] Comment on above: Performed By: #### L 100.0100, L500.4050 ####[facility] [address] [place], [address] GFR/1.73 sq M.predicted among non-blacks MDRD (S/P/Bld) [Vol rate/Area] 45 mL/min/{1.73_m2} Low >60 [facility] Comment on above: Result Comment: mL/m in/1.73m2 CKD-EPI Creatinine Equation (2020) Performed By: #### L 100.0100, L500.4050 ####[facility] [address] [place], [address] Globulin (S) [Mass/Vol] 3.2 g/dL Normal 2.2-4.2 [facility] Comment on above: Performed By: #### L 100.0100, L500.4050 ####[facility] [address] [place], [address] Glucose [Mass/Vol] 97 mg/dL Normal 70-99 [facility] Comment on above: Performed By: #### L 100.0100, L500.4050 ####[facility] [address] [place], [address] Potassium [Moles/Vol] 4.2 mmol/L Normal 3.3-5.1 [facility] Comment on above: Performed By: #### L 100.0100, L500.4050 ####[facility] [address] [place], [address] Sodium [Moles/Vol] 138 mmol/L Normal 133-145 [facility] Comment on above: Performed By: #### L 100.0100, L500.4050 ####[facility] [address] [place], [address] T PROT 6.8 g/dL Normal 5.9-8.4 [facility] Comment on above: Performed By: #### L 100.0100, L500.4050 ####[facility] [address] [place], [place], [address] Urea nitrogen [Mass/Vol] 23 mg/dL High 4-19 [facility] Comment on above: Performed By: #### L 100.0100, L500.4050 ####[facility] [address] [place], [place], [address] Oncology Visit Reporton 11-15 Oncology Visit Report Normal [facility] Absolute lymphocyte countOrd ered By: Yenifer Patten on 11-23-2024 Lymphocytes Auto (Unsp spec) [#/Vol] 0.69 10*3/uL Low 0.83-4.51 [facility] Absolute neutrophil countOrd ered By: Yenifer Patten on 11-23-2024 Neutrophils (Bld) [#/Vol] 7.5 10*3/uL 2.0-7.7 [facility] Anion gap in Serum or Plasma Ordered By: Yenifer Patten on 11-23-2024 Anion gap [Moles/Vol] 18 mmol/L High 5-15 [facility] Automated lymphocyte count a s percentage of total leukocytesOrdered By: Yenifer Patten on 11-23-2024 Lymphocytes/100 WBC Auto (Unsp spec) 7.2 % Low 19-41 [facility] BUN/creatinine ratioOrdered By: Yenifer Patten on 11-23-2024 Urea nitrogen/Creatinine [Mass ratio] 18.3 mg/mg 10-20 [facility] Basophil percentageOrdered B y: Yenifer Patten on 11-23-2024 Basophils/100 WBC (Bld) 0.4 % 0-1 [facility] Bilirubin, totalOrdered By: Yenifer Patten on 11-23-2024 Bilirubin [Mass/Vol] 3.04 mg/dL High 0.00-1.30 [facility] CBC W/Diff, Automatedon Absolute Lymph 0.69 X10 3/uL Low 0.83-4.51 [facility] Comment on above: Performed By: #### L 100.0100, L500.4050, L501.2450 ####[facility] [address] [place], [address] Absolute Neut 7.5 X10 3/uL Normal 2.0-7.7 [facility] Comment on above: Performed By: #### L 100.0100, L500.4050, L501.2450 ####[facility] [address] [place], [address] Basophils/100 WBC (Bld) 0.4 % Normal 0-1 [facility] Comment on above: Performed By: #### L 100.0100, L500.4050, L501.2450 ####[facility] [address] [place], [address] Eosinophils/100 WBC (Bld) 0.1 % Normal 0-5 [facility] Comment on above: Performed By: #### L 100.0100, L500.4050, L501.2450 ####[facility] [address] [place], [address] Erythrocyte distribution width (RBC) [Ratio] 17.4 % High 11.6-14.6 [facility] Comment on above: Performed By: #### L 100.0100, L500.4050, L501.2450 ####[facility] [address] [place], [address] Hematocrit (Bld) [Volume fraction] 41.5 % Normal 37-47 [facility] Comment on above: Performed By: #### L 100.0100, L500.4050, L501.2450 ####[facility] [address] [place], [address] Hemoglobin (Bld) [Mass/Vol] 14.3 g/dL Normal 12.0-15.0 [facility] Comment on above: Performed By: #### L 100.0100, L500.4050, L501.2450 ####[facility] [address] [place], [address] IG% 0.700 Normal 0.0-0.9 [facility] Comment on above: Result Comment: IG% - Immature Granulocytes (promyelocytes, myelocytes andmetamyelocytes) > 1% indicates that a LEFT SHIFT is Present. Performed By: #### L 100.0100, L500.4050, L501.2450 ####[facility] [address] [place], [address] Lymphocytes/100 WBC (Bld) 7.2 % Low 19-41 [facility] Comment on above: Performed By: #### L 100.0100, L500.4050, L501.2450 ####[facility] [address] [place], [address] MCH (RBC) [Entitic mass] 29.8 pg Normal 27.0-32.0 [facility] Comment on above: Performed By: #### L 100.0100, L500.4050, L501.2450 ####[facility] [address] [place], [address] MCHC (RBC) [Mass/Vol] 34.5 g/dL Normal 32-36 [facility] Comment on above: Performed By: #### L 100.0100, L500.4050, L501.2450 ####[facility] [address] [place], [address] MCV (RBC) [Entitic vol] 86.5 fL Normal 81-99 [facility] Comment on above: Performed By: #### L 100.0100, L500.4050, L501.2450 ####[facility] [address] [place], [address] Monocytes/100 WBC (Bld) 13.0 % High 0-10 [facility] Comment on above: Performed By: #### L 100.0100, L500.4050, L501.2450 ####[facility] [address] [place], [address] Neutrophils/100 WBC (Bld) 78.6 % High 47-70 [facility] Comment on above: Performed By: #### L 100.0100, L500.4050, L501.2450 ####[facility] [address] [place], [address] Nucleated RBC (Bld) [#/Vol] 0.3 10*3/uL Normal 0-5 [facility] Comment on above: Performed By: #### L 100.0100, L500.4050, L501.2450 ####[facility] [address] [place], [address] Platelet mean volume (Bld) [Entitic vol] 11.5 fL Normal 6.2-12.0 [facility] Comment on above: Performed By: #### L 100.0100, L500.4050, L501.2450 ####[facility] [address] [place], [address] Platelets (Bld) [#/Vol] 348 10*3/uL Normal 150-450 [facility] Comment on above: Performed By: #### L 100.0100, L500.4050, L501.2450 ####[facility] [address] [place], [address] RBC (Bld) [#/Vol] 4.80 10*6/uL Normal 4.2-5.4 [facility] Comment on above: Performed By: #### L 100.0100, L500.4050, L501.2450 ####[facility] [address] [place], [address] RDW SD 53.6 fl High 35.1-43.9 [facility] Comment on above: Performed By: #### L 100.0100, L500.4050, L501.2450 ####[facility] [address] [place], [address] WBC (Bld) [#/Vol] 9.6 10*3/uL Normal 4.4-11.0 [facility] Comment on above: Performed By: #### L 100.0100, L500.4050, L501.2450 ####[facility] [address] [place], [address] Carbon dioxide, total [Moles /volume] in Central venous bloodOrdered By: Yenifer Patten on 11-23-2024 CO2 [Moles/Vol] 19.7 mmol/L Low 21.0-32.0 [facility] Chloride assayOrdered By: Kristin Patten on 11-23-2024 Chloride [Moles/Vol] 101 mmol/L 98-108 [facility] Comprehensive Metabolic Prof ilon 11-23-2024 Albumin [Mass/Vol] 3.5 g/dL Normal 3.4-4.8 [facility] Comment on above: Performed By: #### L 100.0100, L500.4050, L501.2450 ####[facility] [address] [place], [address] Albumin/Globulin [Mass ratio] 1.1 {ratio} Normal 0.9-2.4 [facility] Comment on above: Performed By: #### L 100.0100, L500.4050, L501.2450 ####[facility] [address] [place], [address] ALK PHOS 603 U/L High 35-104 [facility] Comment on above: Performed By: #### L 100.0100, L500.4050, L501.2450 ####[facility] [address] [place], [address] ALT [Catalytic activity/Vol] 159 U/L High <=34 [facility] Comment on above: Performed By: #### L 100.0100, L500.4050, L501.2450 ####[facility] [address] [place], [address] AST [Catalytic activity/Vol] 683 U/L High <=31 [facility] Comment on above: Performed By: #### L 100.0100, L500.4050, L501.2450 ####[facility] [address] [place], [address] Bilirubin [Mass/Vol] 3.04 mg/dL High 0.00-1.30 [facility] Comment on above: Performed By: #### L 100.0100, L500.4050, L501.2450 ####[facility] [address] [place], [address] BUN/CRE 18.3 RATIO Normal 10-20 [facility] Comment on above: Performed By: #### L 100.0100, L500.4050, L501.2450 ####[facility] [address] [place], [address] Calcium [Mass/Vol] 11.8 mg/dL High 7.6-11.0 [facility] Comment on above: Performed By: #### L 100.0100, L500.4050, L501.2450 ####[facility] [address] [place], [address] Chloride [Moles/Vol] 101 mmol/L Normal 98-108 [facility] Comment on above: Performed By: #### L 100.0100, L500.4050, L501.2450 ####[facility] [address] [place], [address] CO2 [Moles/Vol] 19.7 mmol/L Low 21.0-32.0 [facility] Comment on above: Performed By: #### L 100.0100, L500.4050, L501.2450 ####[facility] [address] [place], [address] Creatinine [Mass/Vol] 1.22 mg/dL High 0.70-1.20 [facility] [place] Comment on above: Performed By: #### L 100.0100, L500.4050, L501.2450 ####[facility] [address] [place], [address] ECRCL 40.43 ml/min Low 50-250 [facility] Comment on above: Performed By: #### L 100.0100, L500.4050, L501.2450 ####[facility] [facility] [address] [place], [address] GAP 18 High 5-15 [facility] Comment on above: Performed By: #### L 100.0100, L500.4050, L501.2450 ####[facility] [address] [place], [address] GFR/1.73 sq M.predicted among non-blacks MDRD (S/P/Bld) [Vol rate/Area] 48 mL/min/{1.73_m2} Low >60 [facility] Comment on above: Result Comment: mL/m in/1.73m2 CKD-EPI Creatinine Equation (2020) Performed By: #### L 100.0100, L500.4050, L501.2450 ####[facility] [address] [place], [address] Globulin (S) [Mass/Vol] 3.2 g/dL Normal 2.2-4.2 [facility] Comment on above: Performed By: #### L 100.0100, L500.4050, L501.2450 ####[facility] [address] [place], [address] Glucose [Mass/Vol] 118 mg/dL High 70-99 [facility] Comment on above: Performed By: #### L 100.0100, L500.4050, L501.2450 ####[facility] [address] [place], [address] Potassium [Moles/Vol] 4.3 mmol/L Normal 3.3-5.1 [facility] [place] Comment on above: Performed By: #### L 100.0100, L500.4050, L501.2450 ####[facility] [address] [place], [address] Sodium [Moles/Vol] 139 mmol/L Normal 133-145 [facility] Comment on above: Performed By: #### L 100.0100, L500.4050, L501.2450 ####[facility] [address] [place], [address] T PROT 6.8 g/dL Normal 5.9-8.4 [facility] Comment on above: Performed By: #### L 100.0100, L500.4050, L501.2450 ####[facility] [address] [place], [address] Urea nitrogen [Mass/Vol] 22 mg/dL High 4-19 [facility] Comment on above: Performed By: #### L 100.0100, L500.4050, L501.2450 ####[facility] [address] [place], [address] Emergency Department Summary on 11-23-2024 Emergency Department Summary Normal [facility] Eosinophil percentageOrdered By: Yenifer Patten on 11-23-2024 Eosinophils/100 WBC (Bld) 0.1 % 0-5 [facility] Erythrocyte distribution wid th ratioOrdered By: Yenifer Patten on 11-23-2024 Erythrocyte distribution width (RBC) [Ratio] 17.4 % High 11.6-14.6 [facility] Erythrocyte distribution wid th standard deviationOrdered By: Yenifer Patten on 11-23-2024 Erythrocyte distribution width (RBC) [Entitic vol] 53.6 fL High 35.1-43.9 [facility] Erythrocyte distribution width (RBC) [Ratio] 53.6 fl High 35.1-43.9 [facility] Estimation of creatinine lubna aranceOrdered By: Yenifer Patten on 11-23-2024 Estimated Creatinine Clearance Calc 40.43 ml/min Low 50-250 [facility] GFR/1.73 sq M.predicted mary g non-blacks MDRD (S/P/Bld) [Vol rate/Area]Ordered By: Yenifer Patten on 11-23-2024 Estimated GFR (MDRD) Non-Af Amer 48 Low >60 [facility] Comment on above: mL/min/1.73m2 CKD-EP I Creatinine Equation (2020) Glomerular filtration rate ( GFR) estimation/1.73 sq m using serum, plasma, or whole bOrdered By: Yenifer Patten on 11-23-2024 GFR/1.73 sq M.predicted among non-blacks MDRD (S/P/Bld) [Vol rate/Area] 48 mL/min/{1.73_m2} Low >60 [facility] Comment on above: mL/min/1.73m2 CKD-EP I Creatinine Equation (2020) Hematocrit Auto (Bld) [Volum e fraction]Ordered By: Yenifer Patten on 11-23-2024 Hematocrit (Bld) [Volume fraction] 41.5 % 37-47 [facility] Hemoglobin measurementOrdere d By: Yenifer Patten on 11-23-2024 Hemoglobin (Bld) [Mass/Vol] 14.3 g/dL 12.0-15.0 [facility] Immature granulocytes/100 WB C Auto (Bld)Ordered By: Yenifer Patten on 11-23-2024 Immature granulocytes/100 WBC (Bld) 0.700 % 0.0-0.9 [facility] Comment on above: IG% - Immature Granu locytes (promyelocytes, myelocytes and metamyelocytes) > 1% indicates that a LEFT SHIFT is Present. Laboratory - Chemistry and C hemistry - challengeOrdered By: Yenifer Patten on 11-23-2024 AST [Catalytic activity/Vol] 683 U/L High <32 [facility] Lipaseon 11-23-2024 Lipase [Catalytic activity/Vol] 267 U/L High 13-75 [facility] Comment on above: Result Comment: Elise brunson note:LIPASE revised reference range effective 22.New Lipase methodology. Expected to produce lower valuesthan the previous assay method.NEW Reference Range: 13 - 75 U/L Performed By: #### L 100.0100, L500.4050, L501.2450 ####[facility] [address] [place], [address] Lipase measurementOrdered By : Yenifer Patten on 11-23-2024 Lipase [Catalytic activity/Vol] 267 U/L High 13-75 [facility] Comment on above: Please note:LIPASE r evised reference range effective 22. New Lipase methodology. Expected to produce lower values than the previous assay method. NEW Reference Range: 13 - 75 U/L Lymphocytes Auto (Unsp spec) [#/Vol]Ordered By: Yenifer Patten on 11-23-2024 Lymphocytes (Bld) [#/Vol] 0.69 10*3/uL Low 0.83-4.51 [facility] Lymphocytes/100 WBC Auto (Un sp spec)Ordered By: Yenifer Patten on 11-23-2024 Lymphocytes/100 WBC (Bld) 7.2 % Low 19-41 [facility] MCV (mean corpuscular volume ) determinationOrdered By: Yenifer Patten on 11-23-2024 MCV (RBC) [Entitic vol] 86.5 fL 81-99 [facility] Mean corpuscular hemoglobin (MCH) determinationOrdered By: Yenifer Patten on 11-23-2024 MCH (RBC) [Entitic mass] 29.8 pg 27.0-32.0 [facility] Mean corpuscular hemoglobin concentration (MCHC) determinationOrdered By: Yenifer Patten on 11-23-2024 MCHC (RBC) [Mass/Vol] 34.5 g/dL 32-36 [facility] Mean platelet volume determi nationOrdered By: Yenifer Patten on 11-23-2024 Platelet mean volume (Bld) [Entitic vol] 11.5 fL 6.2-12.0 [facility] Monocyte percentageOrdered B y: Yenifer Patten on 11-23-2024 Monocytes/100 WBC (Bld) 13.0 % High 0-10 [facility] Neutrophil percentageOrdered By: Yenifer Patten on 11-23-2024 Neutrophils/100 WBC (Bld) 78.6 % High 47-70 [facility] No Panel InformationOrdered By: Yenifer Patten on 11-23-2024 683 U/L High <32 [facility] Nucleated red blood cell per centageOrdered By: Yenifer Patten on 11-23-2024 Nucleated RBC/100 WBC (Bld) [Ratio] 0.3 % 0-5 [facility] Platelet countOrdered By: Kristin Patten on 11-23-2024 Platelets (Bld) [#/Vol] 348 10*3/uL 150-450 [facility] Potassium (Unsp spec) [Mass/ Vol]Ordered By: Yenifer Patten on 11-23-2024 Potassium [Moles/Vol] 4.3 mmol/L 3.3-5.1 [facility] Potassium measurement (mass/ volume)Ordered By: Yenifer Patten on 11-23-2024 Potassium (Unsp spec) [Mass/Vol] 4.3 mmol/L 3.3-5.1 [facility] RBC Auto (Bld) [#/Vol]Ordere d By: Yenifer Patten on 11-23-2024 RBC (Bld) [#/Vol] 4.80 10*6/uL 4.2-5.4 [facility] Serum creatinine measurement (mass/volume)Ordered By: Yenifer Patten on 11-23-2024 Creatinine [Mass/Vol] 1.22 mg/dL High 0.70-1.20 [facility] Serum globulin measurementOr dered By: Yenifer Patten on 11-23-2024 Globulin (S) [Mass/Vol] 3.2 g/dL 2.2-4.2 [facility] Serum glucose measurement (m ass/volume)Ordered By: Yenifer Patten on 11-23-2024 Glucose [Mass/Vol] 118 mg/dL High 70-99 [facility] Serum or plasma alanine encarnacion otransferase (ALT) measurementOrdered By: Yenifer Patten on 11-23-2024 ALT [Catalytic activity/Vol] 159 U/L High <35 [facility] Serum or plasma albumin jayro urement (mass/volume)Ordered By: Yenifer Patten on 11-23-2024 Albumin [Mass/Vol] 3.5 g/dL 3.4-4.8 [facility] Serum or plasma albumin/glob ulin mass ratioOrdered By: Yenifer Patten on 11-23-2024 Albumin/Globulin [Mass ratio] 1.1 {ratio} 0.9-2.4 [facility] Serum or plasma alkaline lukas sphatase measurementOrdered By: Yenifer Patten on 11-23-2024 ALP [Catalytic activity/Vol] 603 U/L High 35-104 [facility] Serum or plasma calcium jayro urement (mass/volume)Ordered By: Yenifer Patten on 11-23-2024 Calcium [Mass/Vol] 11.8 mg/dL High 7.6-11.0 [facility] Serum or plasma urea nitroge n measurement (mass/volume)Ordered By: Yenifer Patten on 11-23-2024 Urea nitrogen [Mass/Vol] 22 mg/dL High 4-19 [facility] Sodium levelOrdered By: Yenifer Patten on 11-23-2024 Sodium [Moles/Vol] 139 mmol/L 133-145 [facility] Total proteinOrdered By: Larua Patten on 11-23-2024 Protein [Mass/Vol] 6.8 g/dL 5.9-8.4 [facility] White blood cell (WBC) count Ordered By: Yenifer Patten on 11-23-2024 WBC (Bld) [#/Vol] 9.6 10*3/uL 4.4-11.0 [facility] BUN/creatinine ratioOrdered By: Mae Horton on 11-14-2024 Urea nitrogen/Creatinine [Mass ratio] 10.6 mg/mg 10-20 [facility] Basic Metabolic Profile (BMP )on 11-14-2024 Anion gap [Moles/Vol] 13 mmol/L Normal 5-15 [facility] [place] Comment on above: Performed By: #### L 100.0500, L500.2500 ####[facility] [address] [place], [address] BUN/CRE 10.6 RATIO Normal 10-20 [facility] Comment on above: Performed By: #### L 100.0500, L500.2500 ####[facility] [address] [place], [address] Calcium [Mass/Vol] 10.1 mg/dL Normal 7.6-11.0 [facility] Comment on above: Performed By: #### L 100.0500, L500.2500 ####[facility] [address] [place], [address] Chloride [Moles/Vol] 105 mmol/L Normal 96-108 [facility] Comment on above: Performed By: #### L 100.0500, L500.2500 ####[facility] [address] [place], [address] CO2 [Moles/Vol] 20.3 mmol/L Low 22.0-29.0 [facility] Comment on above: Performed By: #### L 100.0500, L500.2500 ####[facility] [address] [place], [address] Creatinine [Mass/Vol] 0.91 mg/dL Normal 0.70-1.20 [facility] [place] Comment on above: Performed By: #### L 100.0500, L500.2500 ####[facility] [address] [place], [address] ECRCL 54.89 ml/min Normal [facility] Comment on above: Performed By: #### L 100.0500, L500.2500 ####[facility] [address] [place], [address] GFR/1.73 sq M.predicted among non-blacks MDRD (S/P/Bld) [Vol rate/Area] 68 mL/min/{1.73_m2} Normal >60 [facility] Comment on above: Result Comment: mL/m in/1.73m2 CKD-EPI Creatinine Equation (2020) Performed By: #### L 100.0500, L500.2500 ####[facility] [address] [place], [address] Glucose [Mass/Vol] 95 mg/dL Normal 70-99 [facility] Comment on above: Performed By: #### L 100.0500, L500.2500 ####[facility] [address] [place], [address] Potassium [Moles/Vol] 4.2 mmol/L Normal 3.3-5.1 [facility] [place] Comment on above: Performed By: #### L 100.0500, L500.2500 ####[facility] [address] [place], [address] Sodium [Moles/Vol] 139 mmol/L Normal 133-145 [facility] Comment on above: Performed By: #### L 100.0500, L500.2500 ####[facility] [address] [place], [address] Urea nitrogen [Mass/Vol] 10 mg/dL Normal 4-19 [facility] Comment on above: Performed By: #### L 100.0500, L500.2500 ####[facility] [address] [place], [address] Biopsy/Inj or Needle Placeme nton 11-14-2024 Biopsy/Inj or Needle Placement Normal [facility] CBC-Complete Blood Cnt No Di ffon 11-14-2024 Erythrocyte distribution width (RBC) [Ratio] 15.8 % High 11.6-14.6 [facility] Comment on above: Performed By: #### L 100.0500, L500.2500 ####[facility] [address] [place], [address] Hematocrit (Bld) [Volume fraction] 37.1 % Normal 37-47 [facility] Comment on above: Performed By: #### L 100.0500, L500.2500 ####[facility] [address] [place], [address] Hemoglobin (Bld) [Mass/Vol] 12.0 g/dL Normal 12.0-15.0 [facility] Comment on above: Performed By: #### L 100.0500, L500.2500 ####[facility] [address] [place], [address] MCH (RBC) [Entitic mass] 28.8 pg Normal 27.0-32.0 [facility] Comment on above: Performed By: #### L 100.0500, L500.2500 ####[facility] [address] [place], [address] MCHC (RBC) [Mass/Vol] 32.3 g/dL Normal 32-36 [facility] Comment on above: Performed By: #### L 100.0500, L500.2500 ####[facility] [address] [place], [address] MCV (RBC) [Entitic vol] 89.0 fL Normal 81-99 [facility] Comment on above: Performed By: #### L 100.0500, L500.2500 ####[facility] [address] [place], [address] Platelet mean volume (Bld) [Entitic vol] 12.0 fL Normal 6.2-12.0 [facility] Comment on above: Performed By: #### L 100.0500, L500.2500 ####[facility] [address] [place], [address] Platelets (Bld) [#/Vol] 275 10*3/uL Normal 150-450 [facility] Comment on above: Performed By: #### L 100.0500, L500.2500 ####[facility] [address] [place], [address] RBC (Bld) [#/Vol] 4.17 10*6/uL Low 4.2-5.4 [facility] Comment on above: Performed By: #### L 100.0500, L500.2500 ####[facility] [address] [place], [address] RDW SD 50.9 fl High 35.1-43.9 [facility] Comment on above: Performed By: #### L 100.0500, L500.2500 ####[facility] [address] [place], [address] WBC (Bld) [#/Vol] 7.2 10*3/uL Normal 4.4-11.0 [facility] Comment on above: Performed By: #### L 100.0500, L500.2500 ####[facility] [address] [place], [address] Carbon dioxide measurementOr dered By: Mae Horton on 11-14-2024 CO2 [Moles/Vol] 20.3 mmol/L Low 22.0-29.0 [facility] Chloride measurementOrdered By: Mae Horton on 11-14-2024 Chloride [Moles/Vol] 105 mmol/L 96-108 [facility] Erythrocyte distribution wid th ratioOrdered By: Mae Horton on 11-14-2024 Erythrocyte distribution width (RBC) [Ratio] 15.8 % High 11.6-14.6 [facility] Erythrocyte distribution wid th standard deviationOrdered By: Mae Horton on 11-14-2024 Erythrocyte distribution width (RBC) [Entitic vol] 50.9 fL High 35.1-43.9 [facility] Erythrocyte distribution width (RBC) [Ratio] 50.9 fl High 35.1-43.9 [facility] Estimation of creatinine lubna aranceOrdered By: Mae Horton on 11-14-2024 Estimated Creatinine Clearance Calc 54.89 ml/min [facility] GFR/1.73 sq M.predicted mary g non-blacks MDRD (S/P/Bld) [Vol rate/Area]Ordered By: Mae Horton on 11-14-2024 Estimated GFR (MDRD) Non-Af Amer 68 >60 [facility] Comment on above: mL/min/1.73m2 CKD-EP I Creatinine Equation (2020) Glomerular filtration rate ( GFR) estimation/1.73 sq m using serum, plasma, or whole bOrdered By: Mae Horton on 11-14-2024 GFR/1.73 sq M.predicted among non-blacks MDRD (S/P/Bld) [Vol rate/Area] 68 mL/min/{1.73_m2} >60 [facility] Comment on above: mL/min/1.73m2 CKD-EP I Creatinine Equation (2020) Hematocrit Auto (Bld) [Volum e fraction]Ordered By: Mae Horton on 11-14-2024 Hematocrit (Bld) [Volume fraction] 37.1 % 37-47 [facility] Hemoglobin measurementOrdere d By: Mae Horton on 11-14-2024 Hemoglobin (Bld) [Mass/Vol] 12.0 g/dL 12.0-15.0 [facility] Immunohistochemical Stainson 11-14-2024 Immunohistochemical Stains Normal [facility] Comment on above: Performed By: #### [facility] ####[facility] [address] [place], [address] MCV (mean corpuscular volume ) determinationOrdered By: Mae Horton on 11-14-2024 MCV (RBC) [Entitic vol] 89.0 fL 81-99 [facility] Mean corpuscular hemoglobin (MCH) determinationOrdered By: Mae Horton on 11-14-2024 MCH (RBC) [Entitic mass] 28.8 pg 27.0-32.0 [facility] Mean corpuscular hemoglobin concentration (MCHC) determinationOrdered By: Mae Horton on 11-14-2024 MCHC (RBC) [Mass/Vol] 32.3 g/dL 32-36 [facility] Mean platelet volume determi nationOrdered By: Mae Horton on 11-14-2024 Platelet mean volume (Bld) [Entitic vol] 12.0 fL 6.2-12.0 [facility] Platelet countOrdered By: Kassie Horton on 11-14-2024 Platelets (Bld) [#/Vol] 275 10*3/uL 150-450 [facility] RBC Auto (Bld) [#/Vol]Ordere d By: Mae Horton on 11-14-2024 RBC (Bld) [#/Vol] 4.17 10*6/uL Low 4.2-5.4 [facility] Serum creatinine measurement (mass/volume)Ordered By: Mae Horton on 11-14-2024 Creatinine [Mass/Vol] 0.91 mg/dL 0.70-1.20 [facility] Serum glucose measurement (m ass/volume)Ordered By: Mae Horton on 11-14-2024 Glucose [Mass/Vol] 95 mg/dL 70-99 [facility] Serum or plasma anion gap de termination (moles/volume)Ordered By: Mae Horton on 11-14-2024 Anion gap [Moles/Vol] 13 mmol/L 5-15 [facility] Serum or plasma calcium jayro urement (mass/volume)Ordered By: Mae Horton on 11-14-2024 Calcium [Mass/Vol] 10.1 mg/dL 7.6-11.0 [facility] Serum or plasma potassium me asurementOrdered By: Mae Horton on 11-14-2024 Potassium [Moles/Vol] 4.2 mmol/L 3.3-5.1 [facility] Serum or plasma sodium measu rement (moles/volume)Ordered By: Mae Horton on 11-14-2024 Sodium [Moles/Vol] 139 mmol/L 133-145 [facility] Serum or plasma urea nitroge n measurement (mass/volume)Ordered By: Mae Horton on 11-14-2024 Urea nitrogen [Mass/Vol] 10 mg/dL 4-19 [facility] White blood cell (WBC) count Ordered By: Mae Horton on 11-14-2024 WBC (Bld) [#/Vol] 7.2 10*3/uL 4.4-11.0 [facility] 12 Lead EKGon 11-13-2024 12 Lead EKG Normal [facility] Absolute lymphocyte countOrd ered By: Mae Horton on 11-13-2024 Lymphocytes Auto (Unsp spec) [#/Vol] 1.02 10*3/uL 0.83-4.51 [facility] Absolute neutrophil countOrd ered By: Mae Horton on 11-13-2024 Neutrophils (Bld) [#/Vol] 4.2 10*3/uL 2.0-7.7 [facility] Automated lymphocyte count a s percentage of total leukocytesOrdered By: Mae Horton on 11-13-2024 Lymphocytes/100 WBC Auto (Unsp spec) 16.3 % Low 19-41 [facility] Basophil percentageOrdered B y: Mae Horton on 11-13-2024 Basophils/100 WBC (Bld) 0.8 % 0-1 [facility] Bilirubin, totalOrdered By: Mae Horton on 11-13-2024 Bilirubin [Mass/Vol] 0.84 mg/dL 0.00-1.30 [facility] CBC W/Diff, Automatedon 10-19 Absolute Lymph 1.02 X10 3/uL Normal 0.83-4.51 [facility] Comment on above: Performed By: #### L 501.2300, L100.0100, L501.9520, L501.5200, L500.4050 ####[facility] [address] [place], [address] Absolute Neut 4.2 X10 3/uL Normal 2.0-7.7 [facility] Comment on above: Performed By: #### L 501.2300, L100.0100, L501.9520, L501.5200, L500.4050 ####[facility] [address] [place], [address] Basophils/100 WBC (Bld) 0.8 % Normal 0-1 [facility] Comment on above: Performed By: #### L 501.2300, L100.0100, L501.9520, L501.5200, L500.4050 ####[facility] [address] [place], [address] Eosinophils/100 WBC (Bld) 0.6 % Normal 0-5 [facility] Comment on above: Performed By: #### L 501.2300, L100.0100, L501.9520, L501.5200, L500.4050 ####[facility] [address] [place], [address] Erythrocyte distribution width (RBC) [Ratio] 15.3 % High 11.6-14.6 [facility] Comment on above: Performed By: #### L 501.2300, L100.0100, L501.9520, L501.5200, L500.4050 ####[facility] [address] [place], [address] Hematocrit (Bld) [Volume fraction] 35.9 % Low 37-47 [facility] Comment on above: Performed By: #### L 501.2300, L100.0100, L501.9520, L501.5200, L500.4050 ####[facility] [address] [place], [address] Hemoglobin (Bld) [Mass/Vol] 11.7 g/dL Low 12.0-15.0 [facility] Comment on above: Performed By: #### L 501.2300, L100.0100, L501.9520, L501.5200, L500.4050 ####[facility] [address] [place], [address] IG% 0.300 Normal 0.0-0.9 [facility] Comment on above: Result Comment: IG% - Immature Granulocytes (promyelocytes, myelocytes andmetamyelocytes) > 1% indicates that a LEFT SHIFT is Present. Performed By: #### L 501.2300, L100.0100, L501.9520, L501.5200, L500.4050 ####[facility] [address] [place], [address] Lymphocytes/100 WBC (Bld) 16.3 % Low 19-41 [facility] Comment on above: Performed By: #### L 501.2300, L100.0100, L501.9520, L501.5200, L500.4050 ####[facility] [address] [place], [address] MCH (RBC) [Entitic mass] 28.9 pg Normal 27.0-32.0 [facility] Comment on above: Performed By: #### L 501.2300, L100.0100, L501.9520, L501.5200, L500.4050 ####[facility] [address] [place], [address] MCHC (RBC) [Mass/Vol] 32.6 g/dL Normal 32-36 [facility] Comment on above: Performed By: #### L 501.2300, L100.0100, L501.9520, L501.5200, L500.4050 ####[facility] [address] [place], [address] MCV (RBC) [Entitic vol] 88.6 fL Normal 81-99 [facility] Comment on above: Performed By: #### L 501.2300, L100.0100, L501.9520, L501.5200, L500.4050 ####[facility] [address] [place], [address] Monocytes/100 WBC (Bld) 14.7 % High 0-10 [facility] Comment on above: Performed By: #### L 501.2300, L100.0100, L501.9520, L501.5200, L500.4050 ####[facility] [address] [place], [address] Neutrophils/100 WBC (Bld) 67.3 % Normal 47-70 [facility] Comment on above: Performed By: #### L 501.2300, L100.0100, L501.9520, L501.5200, L500.4050 ####[facility] [address] [place], [address] Nucleated RBC (Bld) [#/Vol] 0 10*3/uL Normal 0-5 [facility] Comment on above: Performed By: #### L 501.2300, L100.0100, L501.9520, L501.5200, L500.4050 ####[facility] [address] [place], [address] Platelet mean volume (Bld) [Entitic vol] 11.2 fL Normal 6.2-12.0 [facility] Comment on above: Performed By: #### L 501.2300, L100.0100, L501.9520, L501.5200, L500.4050 ####[facility] [address] [place], [address] Platelets (Bld) [#/Vol] 249 10*3/uL Normal 150-450 [facility] Comment on above: Performed By: #### L 501.2300, L100.0100, L501.9520, L501.5200, L500.4050 ####[facility] [address] [place], [address] RBC (Bld) [#/Vol] 4.05 10*6/uL Low 4.2-5.4 [facility] Comment on above: Performed By: #### L 501.2300, L100.0100, L501.9520, L501.5200, L500.4050 ####[facility] [address] [place], [address] RDW SD 49.1 fl High 35.1-43.9 [facility] Comment on above: Performed By: #### L 501.2300, L100.0100, L501.9520, L501.5200, L500.4050 ####[facility] [address] [place], [address] WBC (Bld) [#/Vol] 6.3 10*3/uL Normal 4.4-11.0 [facility] Comment on above: Performed By: #### L 501.2300, L100.0100, L501.9520, L501.5200, L500.4050 ####[facility] [address] [place], [address] Comprehensive Metabolic Prof [facility] 11-13-2024 Albumin [Mass/Vol] 3.5 g/dL Normal 3.4-4.8 [facility] Comment on above: Performed By: #### L 501.2300, L100.0100, L501.9520, L501.5200, L500.4050 ####[facility] [address] [place], [address] Albumin/Globulin [Mass ratio] 1.7 {ratio} Normal 0.9-2.4 [facility] Comment on above: Performed By: #### L 501.2300, L100.0100, L501.9520, L501.5200, L500.4050 ####[facility] [address] [place], [address] ALK PHOS 422 U/L High 35-104 [facility] Comment on above: Performed By: #### L 501.2300, L100.0100, L501.9520, L501.5200, L500.4050 ####[facility] [address] [place], [address] ALT [Catalytic activity/Vol] 133 U/L High <=34 [facility] Comment on above: Performed By: #### L 501.2300, L100.0100, L501.9520, L501.5200, L500.4050 ####[facility] [address] [place], [address] Anion gap [Moles/Vol] 12 mmol/L Normal 5-15 [facility] [place] Comment on above: Performed By: #### L 501.2300, L100.0100, L501.9520, L501.5200, L500.4050 ####[facility] [address] [place], [address] AST [Catalytic activity/Vol] 462 U/L High <=31 [facility] Comment on above: Performed By: #### L 501.2300, L100.0100, L501.9520, L501.5200, L500.4050 ####[facility] [address] [place], [address] Bilirubin [Mass/Vol] 0.84 mg/dL Normal 0.00-1.30 [facility] Comment on above: Performed By: #### L 501.2300, L100.0100, L501.9520, L501.5200, L500.4050 ####[facility] [address] [place], [address] BUN/CRE 12.3 RATIO Normal 10-20 [facility] Comment on above: Performed By: #### L 501.2300, L100.0100, L501.9520, L501.5200, L500.4050 ####[facility] [address] [place], [address] Calcium [Mass/Vol] 9.9 mg/dL Normal 7.6-11.0 [facility] Comment on above: Performed By: #### L 501.2300, L100.0100, L501.9520, L501.5200, L500.4050 ####[facility] [address] [place], [address] Chloride [Moles/Vol] 105 mmol/L Normal 96-108 [facility] Comment on above: Performed By: #### L 501.2300, L100.0100, L501.9520, L501.5200, L500.4050 ####[facility] [address] [place], [address] CO2 [Moles/Vol] 21.4 mmol/L Low 22.0-29.0 [facility] Comment on above: Performed By: #### L 501.2300, L100.0100, L501.9520, L501.5200, L500.4050 ####[facility] [address] [place], [address] Creatinine [Mass/Vol] 0.8 mg/dL Normal 0.6-1.0 [facility] Comment on above: Performed By: #### L 501.2300, L100.0100, L501.9520, L501.5200, L500.4050 ####[facility] [address] [place], [address] ECRCL 62.02 ml/min Normal [facility] Comment on above: Performed By: #### L 501.2300, L100.0100, L501.9520, L501.5200, L500.4050 ####[facility] [address] [place], [address] GFR/1.73 sq M.predicted among non-blacks MDRD (S/P/Bld) [Vol rate/Area] 74 mL/min/{1.73_m2} Normal >60 [facility] Comment on above: Result Comment: mL/m in/1.73m2 CKD-EPI Creatinine Equation (2020) Performed By: #### L 501.2300, L100.0100, L501.9520, L501.5200, L500.4050 ####[facility] [address] [place], [address] Globulin (S) [Mass/Vol] 2.0 g/dL Low 2.2-4.2 [facility] Comment on above: Performed By: #### L 501.2300, L100.0100, L501.9520, L501.5200, L500.4050 ####[facility] [address] [place], [address] Glucose [Mass/Vol] 90 mg/dL Normal 70-99 [facility] Comment on above: Performed By: #### L 501.2300, L100.0100, L501.9520, L501.5200, L500.4050 ####[facility] [address] [place], [address] Potassium [Moles/Vol] 4.3 mmol/L Normal 3.3-5.1 [facility] Comment on above: Performed By: #### L 501.2300, L100.0100, L501.9520, L501.5200, L500.4050 ####[facility] [address] [place], [address] Sodium [Moles/Vol] 138 mmol/L Normal 133-145 [facility] Comment on above: Performed By: #### L 501.2300, L100.0100, L501.9520, L501.5200, L500.4050 ####[facility] [address] [place], [address] T PROT 5.5 g/dL Low 5.9-8.4 [facility] Comment on above: Performed By: #### L 501.2300, L100.0100, L501.9520, L501.5200, L500.4050 ####[facility] [address] [place], [address] Urea nitrogen [Mass/Vol] 10 mg/dL Normal 4-19 [facility] Comment on above: Performed By: #### L 501.2300, L100.0100, L501.9520, L501.5200, L500.4050 ####[facility] [address] [place], [address] ENTERIC PATHOGEN PANEL STOOL on 11-13-2024 EP PANEL Normal [facility] Comment on above: Performed By: #### M 100.7900, M100.637 ####[facility] [address] [facility] [place], [address] Eosinophil percentageOrdered By: Mae Horton on 11-13-2024 Eosinophils/100 WBC (Bld) 0.6 % 0-5 [facility] Immature granulocytes/100 WB C Auto (Bld)Ordered By: Mae Horton on 11-13-2024 Immature granulocytes/100 WBC (Bld) 0.300 % 0.0-0.9 [facility] Comment on above: IG% - Immature Granu locytes (promyelocytes, myelocytes and metamyelocytes) > 1% indicates that a LEFT SHIFT is Present. Laboratory - Chemistry and C hemistry - challengeOrdered By: Mae Horton on 11-13-2024 AST [Catalytic activity/Vol] 462 U/L High <32 [facility] Lymphocytes Auto (Unsp spec) [#/Vol]Ordered By: Mae Horton on 11-13-2024 Lymphocytes (Bld) [#/Vol] 1.02 10*3/uL 0.83-4.51 [facility] Lymphocytes/100 WBC Auto (Un sp spec)Ordered By: Mae Horton on 11-13-2024 Lymphocytes/100 WBC (Bld) 16.3 % Low 19-41 [facility] Magnesiumon 11-13-2024 Magnesium [Mass/Vol] 1.7 mg/dL Normal 1.5-2.2 [facility] Comment on above: Performed By: #### L 501.2300, L100.0100, L501.9520, L501.5200, L500.4050 ####[facility] [address] [place], [place], [address] Magnesium (Unsp spec) [Mass/ Vol]Ordered By: Mae Horton on 11-13-2024 Magnesium [Mass/Vol] 1.7 mg/dL 1.5-2.2 [facility] Magnesium measurement (mass/ volume)Ordered By: Mae Horton on 11-13-2024 Magnesium (Unsp spec) [Mass/Vol] 1.7 mg/dL 1.5-2.2 [facility] Monocyte percentageOrdered B y: Mae Horton on 11-13-2024 Monocytes/100 WBC (Bld) 14.7 % High 0-10 [facility] Neutrophil percentageOrdered By: Mae Horton on 11-13-2024 Neutrophils/100 WBC (Bld) 67.3 % 47-70 [facility] No Panel InformationOrdered By: Mae Horton on 11-13-2024 462 U/L High <32 [facility] Nucleated red blood cell per centageOrdered By: Mae Horton on 11-13-2024 Nucleated RBC/100 WBC (Bld) [Ratio] 0 % 0-5 [facility] Phosphoruson 11-13-2024 Phosphate [Mass/Vol] 2.9 mg/dL Normal 2.7-4.5 [facility] Comment on above: Performed By: #### L 501.2300, L100.0100, L501.9520, L501.5200, L500.4050 ####[facility] [address] [place], [address] Serum globulin measurementOr dered By: Mae Horton on 11-13-2024 Globulin (S) [Mass/Vol] 2.0 g/dL Low 2.2-4.2 [facility] Serum or plasma alanine encarnacion otransferase (ALT) measurementOrdered By: Mae Horton on 02-27-2025 ALT [Catalytic activity/Vol] 133 U/L High <35 [facility] Serum or plasma albumin jayro urement (mass/volume)Ordered By: Mae Horton on 11-13-2024 Albumin [Mass/Vol] 3.5 g/dL 3.4-4.8 [facility] Serum or plasma albumin/glob ulin mass ratioOrdered By: Mae Horton on 11-13-2024 Albumin/Globulin [Mass ratio] 1.7 {ratio} 0.9-2.4 [facility] Serum or plasma alkaline lukas sphatase measurementOrdered By: Mae Horton on 11-13-2024 ALP [Catalytic activity/Vol] 422 U/L High 35-104 [facility] Serum phosphorus measurement Ordered By: Mae Horton on 11-13-2024 Phosphorus Level 2.9 mg/dL 2.7-4.5 [facility] TSH DL <= 0.005 mIU/L QnOrde red By: Mae Horton on 11-13-2024 Thyroid Stimulating Hormone (TSH) 3.530 uIU/mL 0.300-4.200 [facility] TSH Qn 3.530 uIU/mL 0.300-4.200 [facility] Thyroid Stim Hormone (TSH)on 11-13-2024 TSH 3.530 uIU/mL Normal 0.300-4.200 [facility] Comment on above: Performed By: #### L 501.2300, L100.0100, L501.9520, L501.5200, L500.4050 ####[facility] [address] [place], [place], [address] Total proteinOrdered By: Yamel Horton on 11-13-2024 Protein [Mass/Vol] 5.5 g/dL Low 5.9-8.4 [facility] Abdomen/Pelvis W IV Cont ONL Yon 11-12-2024 Abdomen/Pelvis W IV Cont ONLY Normal [facility] Activated partial thrombopla stin time (aPTT) in platelet poor plasma by coagulation aOrdered By: Austin Mack on 11-12-2024 aPTT Coag (PPP) [Time] 26.4 s 24.1-36.2 [facility] Bacteria LM.HPF (Urine sed) [#/Area]Ordered By: Austin Mack on 11-12-2024 Urine Bacteria RARE /hpf None Seen [facility] Bilirubin Test strip Ql (U)O rdered By: Austin Mack on 11-12-2024 Bilirubin Ql (U) 1 mg/dL High Negative [facility] Comment on above: COLOR OF URINE MAY A FFECT DIPSTICK RESULTS. CBC W/Diff, Automatedon 10-19 Absolute Lymph 0.81 X10 3/uL Low 0.83-4.51 [facility] Comment on above: Performed By: #### L 300.4310, L300.3900, L500.4050, L100.0100, L501.2450 ####[facility] [address] [place], [address] Absolute Neut 5.9 X10 3/uL Normal 2.0-7.7 [facility] Comment on above: Performed By: #### L 300.4310, L300.3900, L500.4050, L100.0100, L501.2450 ####[facility] [address] [place], [address] Basophils/100 WBC (Bld) 0.8 % Normal 0-1 [facility] Comment on above: Performed By: #### L 300.4310, L300.3900, L500.4050, L100.0100, L501.2450 ####[facility] [address] [place], [address] Eosinophils/100 WBC (Bld) 0.3 % Normal 0-5 [facility] Comment on above: Performed By: #### L 300.4310, L300.3900, L500.4050, L100.0100, L501.2450 ####[facility] [address] [place], [address] Erythrocyte distribution width (RBC) [Ratio] 15.1 % High 11.6-14.6 [facility] Comment on above: Performed By: #### L 300.4310, L300.3900, L500.4050, L100.0100, L501.2450 ####[facility] [address] [place], [address] Hematocrit (Bld) [Volume fraction] 41.0 % Normal 37-47 [facility] Comment on above: Performed By: #### L 300.4310, L300.3900, L500.4050, L100.0100, L501.2450 ####[facility] [address] [place], [address] Hemoglobin (Bld) [Mass/Vol] 13.8 g/dL Normal 12.0-15.0 [facility] Comment on above: Performed By: #### L 300.4310, L300.3900, L500.4050, L100.0100, L501.2450 ####[facility] [address] [place], [address] IG% 0.400 Normal 0.0-0.9 [facility] Comment on above: Result Comment: IG% - Immature Granulocytes (promyelocytes, myelocytes andmetamyelocytes) > 1% indicates that a LEFT SHIFT is Present. Performed By: #### L 300.4310, L300.3900, L500.4050, L100.0100, L501.2450 ####[facility] [address] [place], [address] Lymphocytes/100 WBC (Bld) 10.5 % Low 19-41 [facility] Comment on above: Performed By: #### L 300.4310, L300.3900, L500.4050, L100.0100, L501.2450 ####[facility] [address] [place], [address] MCH (RBC) [Entitic mass] 29.4 pg Normal 27.0-32.0 [facility] Comment on above: Performed By: #### L 300.4310, L300.3900, L500.4050, L100.0100, L501.2450 ####[facility] [address] [place], [address] MCHC (RBC) [Mass/Vol] 33.7 g/dL Normal 32-36 [facility] Comment on above: Performed By: #### L 300.4310, L300.3900, L500.4050, L100.0100, L501.2450 ####[facility] [address] [place], [address] MCV (RBC) [Entitic vol] 87.4 fL Normal 81-99 [facility] Comment on above: Performed By: #### L 300.4310, L300.3900, L500.4050, L100.0100, L501.2450 ####[facility] [address] [place], [address] Monocytes/100 WBC (Bld) 12.3 % High 0-10 [facility] Comment on above: Performed By: #### L 300.4310, L300.3900, L500.4050, L100.0100, L501.2450 ####[facility] [address] [place], [address] Neutrophils/100 WBC (Bld) 75.7 % High 47-70 [facility] Comment on above: Performed By: #### L 300.4310, L300.3900, L500.4050, L100.0100, L501.2450 ####[facility] [address] [place], [address] Nucleated RBC (Bld) [#/Vol] 0 10*3/uL Normal 0-5 [facility] Comment on above: Performed By: #### L 300.4310, L300.3900, L500.4050, L100.0100, L501.2450 ####[facility] [address] [place], [address] Platelet mean volume (Bld) [Entitic vol] 11.6 fL Normal 6.2-12.0 [facility] Comment on above: Performed By: #### L 300.4310, L300.3900, L500.4050, L100.0100, L501.2450 ####[facility] [address] [place], [address] Platelets (Bld) [#/Vol] 326 10*3/uL Normal 150-450 [facility] Comment on above: Performed By: #### L 300.4310, L300.3900, L500.4050, L100.0100, L501.2450 ####[facility] [address] [place], [address] RBC (Bld) [#/Vol] 4.69 10*6/uL Normal 4.2-5.4 [facility] Comment on above: Performed By: #### L 300.4310, L300.3900, L500.4050, L100.0100, L501.2450 ####[facility] [address] [place], [address] RDW SD 48.1 fl High 35.1-43.9 [facility] Comment on above: Performed By: #### L 300.4310, L300.3900, L500.4050, L100.0100, L501.2450 ####[facility] [address] [place], [address] WBC (Bld) [#/Vol] 7.7 10*3/uL Normal 4.4-11.0 [facility] Comment on above: Performed By: #### L 300.4310, L300.3900, L500.4050, L100.0100, L501.2450 ####[facility] [address] [place], [address] CNOVon 11-12-2024 CNOV Office Visit (FAMPWS) BETSY RODRIGEZ ([id number]) 1955 F Date Time Provider Department 11/12/24 8:40 AM [facility] During your visit today, we recorded the [...] have bilateral upper abdominal pain up to 10/10, nausea, loss of appetite, watery/loose diarrhea with 4-6 episodes per day, BRBRP with blood on TP, 4 lb weight loss in last week. States she feels warmer today than normal. Eating only 1 small meal per day. Taking zofran for nausea and imodium for diarrhea which is not helping. Has Madison for her back which she has been taking for her abdominal pain without much improvement. Needing to take Madison more than prescribed. Past medical history, appointments, medications, allergies reviewed. Previous Medical History PAST MEDICAL HISTORY Diagnosis Date Anxiety with depression Chronic back pain Chronic kidney disease (CKD), stage 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 Johnson Dysphagia Dr. Stiles Ectopic 1991 GERD (gastroesophageal reflux disease) History of prediabetes Hyperlipidemia Hypertension Hypothyroidism Obesity (BMI 30.0-34.9) Other pulmonary embolism without acute cor pulmonale (HCC) Pneumonia [facility] Requiring intubation Previous Surgical History PAST [...] Known Problems Brother Stroke Maternal Grandmother or [place], patient unsure Coronary Artery Disease Maternal Grandfather Alcohol abuse Paternal Grandfather Patient Allergies ALLERGIES Allergen Reactions Meagan Inhibitors Rash Codeine Vomiting, Other: See Comments Headache Remeron [Mirtazapin* Other: See Comments Fatigue Fcbgazc-Orj-Nlv Red* Myalgia [place] Unknown Zetia [Ezetimibe] Myalgia Current Medications Current [...] not taking: Reported on 11/05/2024) mv,jaci,iron,mn/folic acid/chol (CBQW-GWLJ-WDJZC, PABA, ORAL) Take 1 tablet by mouth once daily. (Patien (more content not included)... Normal [facility] Metabolic Prof ilon 11-12-2024 Albumin [Mass/Vol] 3.9 g/dL Normal 3.4-4.8 [facility] Comment on above: Performed By: #### L 300.4310, L300.3900, L500.4050, L100.0100, L501.2450 ####[facility] [address] [place], [address] Albumin/Globulin [Mass ratio] 1.3 {ratio} Normal 0.9-2.4 [facility] Comment on above: Performed By: #### L 300.4310, L300.3900, L500.4050, L100.0100, L501.2450 ####[facility] [address] [place], [address] ALK PHOS 494 U/L High 35-104 [facility] Comment on above: Performed By: #### L 300.4310, L300.3900, L500.4050, L100.0100, L501.2450 ####[facility] [address] [place], [address] ALT [Catalytic activity/Vol] 142 U/L High <=34 [facility] Comment on above: Performed By: #### L 300.4310, L300.3900, L500.4050, L100.0100, L501.2450 ####[facility] [address] [place], [address] Anion gap [Moles/Vol] 14 mmol/L Normal 5-15 [facility] Comment on above: Performed By: #### L 300.4310, L300.3900, L500.4050, L100.0100, L501.2450 ####[facility] [address] [place], [address] AST [Catalytic activity/Vol] 529 U/L High <=31 [facility] Comment on above: Performed By: #### L 300.4310, L300.3900, L500.4050, L100.0100, L501.2450 ####[facility] [address] [place], [address] Bilirubin [Mass/Vol] 0.97 mg/dL Normal 0.00-1.30 [facility] Comment on above: Performed By: #### L 300.4310, L300.3900, L500.4050, L100.0100, L501.2450 ####[facility] [address] [place], [address] BUN/CRE 19.5 RATIO Normal 10-20 [facility] Comment on above: Performed By: #### L 300.4310, L300.3900, L500.4050, L100.0100, L501.2450 ####[facility] [address] [place], [address] Calcium [Mass/Vol] 10.5 mg/dL Normal 7.6-11.0 [facility] Comment on above: Performed By: #### L 300.4310, L300.3900, L500.4050, L100.0100, L501.2450 ####[facility] [address] [place], [address] Chloride [Moles/Vol] 102 mmol/L Normal 96-108 [facility] Comment on above: Performed By: #### L 300.4310, L300.3900, L500.4050, L100.0100, L501.2450 ####[facility] [address] [place], [address] CO2 [Moles/Vol] 21.8 mmol/L Low 22.0-29.0 [facility] Comment on above: Performed By: #### L 300.4310, L300.3900, L500.4050, L100.0100, L501.2450 ####[facility] [address] [place], [address] Creatinine [Mass/Vol] 0.9 mg/dL Normal 0.6-1.0 [facility] Comment on above: Performed By: #### L 300.4310, L300.3900, L500.4050, L100.0100, L501.2450 ####[facility] [address] [place], [address] ECRCL 54.07 ml/min Normal [facility] Comment on above: Performed By: #### L 300.4310, L300.3900, L500.4050, L100.0100, L501.2450 ####[facility] [address] [place], [address] GFR/1.73 sq M.predicted among non-blacks MDRD (S/P/Bld) [Vol rate/Area] 68 mL/min/{1.73_m2} Normal >60 [facility] Comment on above: Result Comment: mL/m in/1.73m2 CKD-EPI Creatinine Equation (2020) Performed By: #### L 300.4310, L300.3900, L500.4050, L100.0100, L501.2450 ####[facility] [address] [place], [address] Globulin (S) [Mass/Vol] 3.1 g/dL Normal 2.2-4.2 [facility] Comment on above: Performed By: #### L 300.4310, L300.3900, L500.4050, L100.0100, L501.2450 ####[facility] [address] [place], [address] Glucose [Mass/Vol] 102 mg/dL High 70-99 [facility] Comment on above: Performed By: #### L 300.4310, L300.3900, L500.4050, L100.0100, L501.2450 ####[facility] [address] [place], [address] Potassium [Moles/Vol] 4.4 mmol/L Normal 3.3-5.1 [facility] Comment on above: Performed By: #### L 300.4310, L300.3900, L500.4050, L100.0100, L501.2450 ####[facility] [address] [place], [address] Sodium [Moles/Vol] 137 mmol/L Normal 133-145 [facility] Comment on above: Performed By: #### L 300.4310, L300.3900, L500.4050, L100.0100, L501.2450 ####[facility] [address] [place], [address] T PROT 7.0 g/dL Normal 5.9-8.4 [facility] Comment on above: Performed By: #### L 300.4310, L300.3900, L500.4050, L100.0100, L501.2450 ####[facility] [address] [place], [address] Urea nitrogen [Mass/Vol] 18 mg/dL Normal 4-19 [facility] Comment on above: Performed By: #### L 300.4310, L300.3900, L500.4050, L100.0100, L501.2450 ####[facility] [address] [place], [address] Emergency Department Summary on 11-12-2024 Emergency Department Summary Normal [facility] Epithelial cells.squamous LM Ql (Urine sed)Ordered By: Austin Mack on 11-12-2024 Epithelial cells.squamous LM.HPF (Urine sed) [#/Area] 0 /[HPF] 5-10 [facility] Glucose Ql (U)Ordered By: Kelton Mack on 11-12-2024 Urine Glucose (UA) Normal mg/dl Normal [facility] H AND P Exam - Hospitaliston 11-12-2024 H&P Exam - Hospitalist Normal [facility] normalized rat io (INR) calculationOrdered By: Austin Mack on 11-12-2024 INR Coag (Bld) [Relative time] 1.1 {INR} [facility] Ketones Test strip Ql (U)Ord ered By: Austin Mack on 11-12-2024 Ketones Ql (U) 5 mg/dl High Negative [facility] Lipaseon 11-12-2024 Lipase [Catalytic activity/Vol] 154 U/L High 13-75 [facility] Comment on above: Result Comment: Plea note:LIPASE revised reference range effective 22.New Lipase methodology. Expected to produce lower valuesthan the previous assay method.NEW Reference Range: 13 - 75 U/L Performed By: #### L 300.4310, L300.3900, L500.4050, L100.0100, L501.2450 ####[facility] [address] [place], [place], [address] Lipase measurementOrdered By : Austin Mack on 11-12-2024 Lipase [Catalytic activity/Vol] 154 U/L High 13-75 [facility] Comment on above: Please note:LIPASE r evised reference range effective 22. New Lipase methodology. Expected to produce lower values than the previous assay method. NEW Reference Range: 13 - 75 U/L Lower GI hemoglobin IA Ql (S tl)Ordered By: Mae Horton on 11-12-2024 Stool Occult Blood (MAXWELL) Positive Abnormal [facility] Microscopic analysis of urin e for red blood cells (RBC)Ordered By: Austin Mack on 11-12-2024 Microscopic analysis of urine for red blood cells (RBC) 0 SEEN /hpf 0-5 [facility] Urine RBC 0 SEEN /hpf 0-5 [facility] Mucus LM Ql (Urine sed)Order ed By: Austin Mack on 11-12-2024 Mucus Ql (Urine sed) 0 SEEN /hpf [facility] Nitrite Test strip Ql (U)Ord ered By: Austin Mack on 11-12-2024 Nitrite Ql (U) Negative Negative [facility] Partial Thromboplast Timeon 11-12-2024 aPTT Coag (Bld) [Time] 26.4 s Normal 24.1-36.2 [facility] Comment on above: Performed By: #### L 300.4310, L300.3900, L500.4050, L100.0100, L501.2450 ####[facility] [address] [place], [place], [address] Protein Test strip Ql (U)Ord ered By: Austin Mack on 11-12-2024 Protein Ql (U) 30 mg/dl High Negative [facility] Prothrombin Time w/INRon INR Coag (PPP) [Relative time] 1.1 {INR} Normal [facility] Comment on above: Performed By: #### L 300.4310, L300.3900, L500.4050, L100.0100, L501.2450 ####[facility] [address] [place], [address] PT Coag (PPP) [Time] 14.2 s Normal 11.7-14.9 [facility] Comment on above: Performed By: #### L 300.4310, L300.3900, L500.4050, L100.0100, L501.2450 ####[facility] [address] [place], [address] Prothrombin timeOrdered By: Austin Mack on 11-12-2024 PT Coag (PPP) [Time] 14.2 s 11.7-14.9 [facility] Squamous epithelial cells de tection in urine sediment by light microscopyOrdered By: Austin Mack on 11-12-2024 Epithelial cells.squamous LM Ql (Urine sed) 0-5 SEEN /hpf 5-10 [facility] Stool Occult Blood iFOBon STOB Positive Normal [facility] Comment on above: Performed By: #### M 100.7900, M100.637 ####[facility] [address] [place], [address] Stool enteric pathogen panel by probe and target amplification methodOrdered By: Mae Horton on 11-12-2024 Enteric Bacteriology [facility] Stool gastrointestinal hemog lobin detection by immunologic methodOrdered By: Mae Horton on 11-12-2024 Lower GI hemoglobin IA Ql (Stl) Positive Abnormal [facility] Urinalysis, Completeon 11-12 BACTERIA RARE Normal None Seen [facility] Comment on above: Order Comment: CLEAN CATCH Performed By: #### L 400.0001 ####[facility] [address] [place], [address] EPI,SQUAMOUS 0-5 SEEN Normal 5-10 [facility] Comment on above: Order Comment: CLEAN CATCH Performed By: #### L 400.0001 ####[facility] [address] [place], [address] RBC 0 SEEN Normal 0-5 [facility] Comment on above: Order Comment: CLEAN CATCH Performed By: #### L 400.0001 ####[facility] [address] [place], [address] WBC 0-5 SEEN Normal 0-5 [facility] Comment on above: Order Comment: CLEAN CATCH Performed By: #### L 400.0001 ####[facility] [address] [place], [address] Mucus Ql (Urine sed) 0 SEEN Normal [facility] Comment on above: Order Comment: CLEAN CATCH Performed By: #### L [id number] ####[facility] [address] [place], [address] Urine blood detectionOrdered By: Austin Mack on 11-12-2024 Urine Occult Blood Negative Negative [facility] Urine clarityOrdered By: Stephanie Mack on 11-12-2024 Clarity (U) Clear Clear [facility] Urine color determinationOrd ered By: Austin Mack on 11-12-2024 Color (U) Yellow Yellow [facility] Urine glucose detectionOrder ed By: Austin Mack on 11-12-2024 Glucose Ql (U) Normal mg/dl Normal [facility] Urine leukocyte esterase det ection by dipstickOrdered By: Austin Mack on 11-12-2024 Leukocyte esterase Test strip Ql (U) Negative Negative [facility] Urine pHOrdered By: Austin palumbo on 11-12-2024 pH (U) 6.0 [pH] 5.0 - 8.0 [facility] Urine sediment bacteria coun t by microscopy (number/high power field)Ordered By: Austin Mack on 11-12-2024 Bacteria LM.HPF (Urine sed) [#/Area] RARE /hpf None Seen [facility] Urine specific gravity measu rementOrdered By: Austin Mack on 11-12-2024 Specific gravity (U) [Rel density] 1.015 1.002-1.030 [facility] Urine urobilinogen measureme ntOrdered By: Austin Mack on 11-12-2024 Urobilinogen Ql (U) 1 mg/dl High Normal [facility] Urobilinogen Ql (U)Ordered B y: Austin Mack on 11-12-2024 Urobilinogen (U) [Mass/Vol] 1 mg/dL High Normal [facility] White blood cell countOrdere d By: Austin Mack on 11-12-2024 Urine WBC 0-5 SEEN /hpf 0-5 [facility] White blood cell count 0-5 SEEN /hpf 0-5 [facility] aPTT Coag (PPP) [Time]Ordere d By: Austin Mack on 11-12-2024 aPTT Coag (Bld) [Time] 26.4 s 24.1-36.2 [facility] PET/CT Tumor Base -Thigh Ini ton 11-11-2024 PET/CT Tumor Base -Thigh Init Normal [facility] CNOVSPon 11-05-2024 CNOVSP Visit (SP) Office (HEMAWS) BETSY RODRIGEZ ([id number]) 1955 F Date Time Provider Department 11/05/24 [...] 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 Johnson Dysphagia Dr. Stiles Ectopic 1991 GERD (gastroesophageal reflux disease) History of prediabetes Hyperlipidemia Hypertension Hypothyroidism Obesity (BMI 30.0-34.9) Other pulmonary embolism without acute cor pulmonale (HCC) Pneumonia due to COVID-19 virus Requiring intubation PAST SURGICAL HISTORY Procedure [...] Known Problems Brother Stroke Maternal Grandmother or SC, patient unsure Coronary Artery Disease Maternal Grandfather [...] Headache Remeron [Mirtazapin* Other: See Comments Fatigue Xatxcww-Fby-Qvy Red* Myalgia [place] Unknown Zetia [Ezetimibe] Myalgia CURRENT OUTPATIENT MEDICATIONS: [...] not taking: Reported on 11/05/2024) mv,jaci,iron,mn/folic acid/chol (LCHZ-DXBL-LTXBE, PABA, ORAL) Take 1 tablet by mouth [...] distress, a (more content not included)... [facility] Telephone (PJ) BETSY RODRIGEZ ([id number]) 1955 F Date Time Provider Department 11/05/24 SILAS ROBBINS During your visit today, we recorded the following information about you: Haroon Royal Jen 11/05/2024 1:57 PM Signed RECOMMENDATION/PLAN: 1. Recommend [...] 14 - Other: See Comments Comments: Fatigue SABAXLN-LIC-TEY REDUCTASE INHIBIT*11/14/2017 17 - Myalgia WALNUT 10/06/2017 [...] as needed for pain. - mv,jaci,iron,mn/folic acid/chol (RTHB-DVMM-QYIHX, PABA, ORAL) Take 1 tablet by mouth [...] Encounter Status:Closed by JEN BRIGGS on 11/13/24 Normal [facility] DIANon 11-04-2024 CNPN Telephone (FAMPWS) BETSY RODRIGEZ ([id number]) 1955 F Date Time Provider Department 11/04/24 [facility] During your visit today, we recorded the following information about you: Terri Dowell RN 11/04/2024 12:18 PM Signed Roxann Gomez CNP [facility] calls and is requesting PCP to [...] this to Dr. Robbins to review as FYConnie. Krystin Zimmerman LPN 11/04/2024 5:02 PM Signed Scan on 11/04/2024 1:33 PM by Provider, MU Shankar: Consultation - Pulmonary Allergies As of Date: 11/04/2024 Noted Allergy Reaction MEAGAN INHIBITORS 10/06/2017 2 - Rash CODEINE 10/06/2017 11 - Vomiting 14 - Other: See Comments Comments: Headache REMERON (MIRTAZAPINE) 01/17/2021 14 - Other: See Comments Comments: Fatigue YWVBTKG-XJL-AHR REDUCTASE INHIBIT*11/14/2017 17 - Myalgia WALNUT 10/06/2017 16 - Unknown ZETIA (EZETIMIBE) 01/17/2021 17 - Myalgia Date Reviewed: 10/30/2024 Reviewed by: Viridiana Torres, (R) - Fully Assessed Reason for Visit: Return Call Request [[id number]] Prescriptions as of 11/12/2024 - ondansetron orally [...] as needed for pain. - mv,jaci,iron,mn/folic acid/chol (OMEL-STSH-OXJKR, PABA, ORAL) Take 1 tablet by mouth [...] Encounter Status:Closed by TERRI DOWELL on 11/12/24 [facility] Alexandrea 11-03-2024 CNPN Telephone (PJ) BETSY RODRIGEZ ([id number]) 1955 F Date Time Provider Department 11/03/24 [...] reschedule after patient has pet scan at [facility]. Daughter states wait until results from Pet [...] 14 - Other: See Comments Comments: Fatigue LOVRILG-ZWZ-BOE REDUCTASE INHIBIT*11/14/2017 17 - Myalgia WALNUT 10/06/2017 [...] as needed for pain. - mv,jaci,iron,mn/folic acid/chol (RWDB-QVWB-DMEPH, PABA, ORAL) Take 1 tablet by mouth [...] Status:Closed by JOYCE CISNEROS on 11/03/24 Normal [facility] Pulmonary Visit Reporton [facility] (FAMPWS) BETSY RODRIGEZ ([id number]) 1955 F Date Time Provider Department 10/31/24 [facility] During your visit today, we recorded the following information about you: Chacho Ambriz LPN 10/31/2024 12:13 PM Signed Pt called to request a copy of the disk for the CT of chest pt had done 10/30/24. Pt has an apt on 11-21-24 at [facility] with Pulmonology. Pt is trying to get this moved up. Please advise pt when the disk is done. 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 - mv,jaci,iron,mn/folic acid/chol (KRHD-AZWR-OUVQU, PABA, ORAL) Take 1 tablet by mouth [...] Encounter Status:Closed by CHACHO AMBRIZ on 11/03/24 [facility] CNPNon 10-30-2024 CNPN Telephone (FAMWS) BETSY RODRIGEZ ([id number]) 1955 F Date Time Provider Department 10/30/24 GIRISH LEMOS [facility] During your visit today, we recorded the [...] 14 - Other: See Comments Comments: Fatigue LUFEVCC-WSW-DIT REDUCTASE INHIBIT*11/14/2017 17 - Myalgia WALNUT 10/06/2017 16 - Unknown ZETIA (EZETIMIBE) 01/17/2021 17 - Myalgia Date Reviewed: 10/30/2024 Reviewed by: Viridiana Torres, RT(R) - Fully Assessed Reason for Visit: Patient Request [[id number]] Prescriptions as of 10/30/2024 - ondansetron orally [...] as needed for pain. - mv,jaci,iron,mn/folic acid/chol (GMQM-BYFU-RMMCP, PABA, ORAL) Take 1 tablet by mouth [...] 06/22/2023 Encounter Status:Closed by POONAM DENISE on 2/13/25 Normal [facility] CT CHEST W IVCONon CT CHEST W IVCON * * *Final Report* * * DATE OF EXAM: Oct 30 2024 8:41AM [facility] 0539 - CT CHEST W IVCON [...] lesion 2. Mediastinal and left hilar lymphadenopathy [employer] Spot Picker: CHRISTY Transcribe Date/Time: Oct 30 2024 9:39A Dictated by : MADHU CORNELL MD This examination was interpreted and the report reviewed and electronically signed by: MADHU CORNELL MD on Oct 30 2024 9:52AM EST [id number] CN Normal [facility] CT Chest W contrast Rosalino IMPRESSION: 1. Irregular left upper lobe perihilar mass which could represent a primary lung malignancy or metastatic lesion 2. Mediastinal and left hilar lymphadenopathy [employer] Spot Picker: CHRISTY Transcribe Date/Time: Oct 30 2024 9:39A Dictated by : MADHU CORNELL MD This examination was interpreted and the report reviewed and electronically signed by: MADHU CORNELL MD on Oct 30 2024 9:52AM EST DIVISION OF RADIOLOGY * * *Final Report* * * DATE OF EXAM: Oct 30 2024 8:41AM [facility] 0539 - CT CHEST W IVCON [...] No additional findings. DIVISION OF RADIOLOGY Provider, [facility] [place] - 10/30/2024 * * *Final Report* * * DATE OF EXAM: Oct 30 2024 8:41AM [facility] 0539 - CT CHEST W IVCON [...] lesion 2. Mediastinal and left hilar lymphadenopathy [employer] Spot Picker: CHRISTY Transcribe Date/Time: Oct 30 2024 9:39A Dictated by : MADHU CORNELL MD This examination was interpreted and the report reviewed and electronically signed by: MADHU CORNELL MD on Oct 30 2024 9:52AM EST [facility] Radiology Study observation (narrative) Anant schneider [facility] CT Chest W contrast Kandi schneider By: [facility] Provider on 10-30-2024 [facility] CNPNon 10-22-2024 CNPN Telephone (FAMPWS) BETSY RODRIGEZ ([id number]) 1955 F Date Time Provider Department 10/22/24 [facility] During your visit today, we recorded the following information about you: Phylicia Heredia RN 10/22/2024 3:37 PM Signed Patient calls upset that the CT scan of her chest order has been cancelled four times. Patient requests order be sent to [facility] to see if they can see her any sooner that [facility]. Faxed per request to [phone]. Submitted PA to [employer]. Phylicia Heredia RN Allergies As of Date: 10/22/2024 Noted Allergy Reaction MEAGAN INHIBITORS 10/06/2017 2 - Rash CODEINE 10/06/2017 11 - Vomiting 14 - Other: See Comments Comments: Headache REMERON (MIRTAZAPINE) 01/17/2021 14 - Other: See Comments Comments: Fatigue ASXKRGI-MOB-ZBV REDUCTASE INHIBIT*11/14/2017 17 - Myalgia WALNUT 10/06/2017 [...] as needed for pain. - mv,jaci,iron,mn/folic acid/chol (UWSP-WXJA-MVSXX, PABA, ORAL) Take 1 tablet by mouth [...] Encounter Status:Closed by PHYLICIA HEREDIA on 10/22/24 [facility] Alexandrea [facility] BETSY RODRIGEZ ([id number]) 1955 F Date Time Provider Department 10/20/24 GIRISH LEMOS During your visit today, we recorded the following information about you: Mae Wong MA 10/20/2024 10:10 AM Signed ----- Message from Girish Lemos MD sent at 10/19/2024 2:20 PM EST ----- Normal alpha fetoprotein level. Follow up with CT chest and referrals as discussed in office. Mae Wong MA 10/20/2024 10:11 AM Signed Pt notified of results via [employer]. Mae Wong Ma Allergies As of Date: 10/20/2024 Noted Allergy Reaction MEAGAN INHIBITORS 10/06/2017 2 - Rash CODEINE 10/06/2017 11 - Vomiting 14 - Other: See Comments Comments: Headache REMERON (MIRTAZAPINE) 01/17/2021 14 - Other: See Comments Comments: Fatigue NRVLZKO-TCY-KTL REDUCTASE INHIBIT*11/14/2017 17 - Myalgia WALNUT 10/06/2017 [...] as needed for pain. - mv,jaci,iron,mn/folic acid/chol (KKXY-MEXW-ADUXQ, PABA, ORAL) Take 1 tablet by mouth [...] Encounter Status:Closed by MAE WONG on 10/20/24 [facility]OD[facility] ([id number]) 1955 F Date Time Provider Department 10/20/24 MASCI, BARBARA A HEMAWS During your visit today, we recorded the [...] being down, CT chest rescheduled to 10/22/2024. BETTYE Santos Melanie, LPN 10/27/2024 9:13 AM Signed [...] 14 - Other: See Comments Comments: Fatigue WCZIJUB-SSS-AFH REDUCTASE INHIBIT*11/14/2017 17 - Myalgia WALNUT 10/06/2017 [...] as needed for pain. - mv,jaci,iron,mn/folic acid/chol (MYKH-YJBL-DWWDV, PABA, ORAL) Take 1 tablet by mouth [...] Status:Closed by JOYCE CISNEROS on 10/31/24 Normal [facility] AFP SerPl-mCncon 10-17-2024 AFP [Mass/Vol] 6.52 ng/mL Normal <9.00 [facility] Comment on above: Order Comment: Speci men Type: BLOOD SPECIMENOrdering Facility: [facility] Address: [address] [place] [address] Result Comment: The Alpha-Fetoprotein test was performed using the NullPointer DxI immunoenzymatic assay. Results obtained with different assay methods or kits cannot be used interchangeably. Performed By: #### 1 834-1 ####[facility] LABCLIA [id number] [facility] [id number] [place] [address] CNOVon 10-17-2024 CNOV Office Visit (FAMPWS) BETSY RODRIGEZ ([id number]) 1955 F Date Time Provider Department 10/17/24 1:00 PM GIRISH LEMOS FAMPWS During your visit today, we recorded the following information about you: Temperature Pulse Respiration Blood pressure 97.8 degrees 67/minute 12/minute 118/70 Weight Height 73.5 kg 1.6 Girish Siu MD 10/17/2024 3:26 PM Signed Chief Complaint Patient presents with: Follow Up: discuss lab results and care plan, diarrhea x 3 days HPI Betsy Lozano Elia is a 68 year old female who [...] pain, currently 5/10. Treating at home with [place] which Dr. 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 Johnson Dysphagia Dr. Stiles Ectopic 1991 GERD (gastroesophageal reflux disease) History of prediabetes Hyperlipidemia Hypertension Hypothyroidism Obesity (BMI 30.0-34.9) Other pulmonary embolism without acute cor pulmonale (HCC) Pneum[facility] Requiring intubation Previous Surgical History PAST [...] Cancer Brother lung Stroke Maternal Grandmother or SC, patient unsure Coronary Artery Disease Maternal Grandfather No Known Problems Sister Patient Allergies ALLERGIES Allergen Reactions Meagan Inhibitors Rash Codeine Vomiting, Other: See Comments Headache Remeron [Mirtazapin* Other: See Comments Fatigue Iafjnkw-Gdh-Iyl Red* Myalgia [place] Unknown Zetia [Ezetimibe] Myalgia Current Medications Current [...] nebulizer every (more content not included)... [facility] Telephone (ARLEY) BETSY RODRIGEZ ([id number]) 1955 F Date Time Provider Department 10/17/24 LENNOX BELLAMY During your visit today, we recorded the following information about you: Lennox Bellamy MSW 10/17/2024 3:56 PM Signed Sw spoke with patient regarding transportation needs. Patient reports that she does live in [place]. Her spouse takes her to doctor appts, he is just not able to drive early in the morning or late at night, due to vision issues. Patient reports I do think that my Medicare Advantage plan has transportation. Patient will give her insurance a call to discuss transportation and see if she has that as a benefit. Patient and Sw also discussed [facility] [place]. Sw provided patient with the number for [facility]. [facility] [place] to address needs of residents. Patient notes that she will check with [facility] if insurance is unable to provide transportation [...] 14 - Other: See Comments Comments: Fatigue GANASYG-UGI-KIK REDUCTASE INHIBIT*11/14/2017 17 - Myalgia WALNUT 10/06/2017 [...] as needed for pain. - mv,jaci,iron,mn/folic acid/chol (GOEU-DDFC-NRZQW, PABA, ORAL) Take 1 tablet by mouth [...] Status:Closed by LENNOX BELLAMY on 10/20/24 Normal [facility] HAV IgM Ser Qlon 10-17-2024 HAV IgM Ql (S) Negative Normal Negative [facility] Comment on above: Order Comment: Speci men Type: BLOOD SPECIMEN [facility] Address: [address] [place] [address] Result Comment: No e vidence of recent infection with Hepatitis A virus. Performed By: #### 2 2314-9, 05834-1, 5195-3 #### [facility] CLIA [id number] [address] [place] [address] [place] [address] [place] HBV core IgM Ser Qlon 2024 HBV core IgM Ql (S) Negative Normal Negative [facility] Comment on above: Order Comment: Pati husain Type: BLOOD SPECIMEN [facility] Address: [address] [place] [address] Result Comment: No e vidence of recent infection with Hepatitis B virus. Should recent infection be suspected, repeat testing may be considered 3-4 weeks after this draw. Performed By: #### 2 2314-9, 88383-9, 5195-3 #### [facility] CLIA [id number] [address] [place] [address] [place] HBV surface Ag Ser Qlon 09-19 HBV surface Ag Ql (S) Negative Normal Negative [facility] Comment on above: Order Comment: Pati husain Type: BLOOD SPECIMEN [facility] Address: [address] [place] [address] Performed By: #### 2 2314-9, 83424-9, 3 #### [facility] CLIA [id number] [address] [place] [address] [place] HCV Ab Ser Qlon 10-17-2024 HCV Ab Ql (S) Negative Normal Negative [facility] Comment on above: Order Comment: Pati husain Type: BLOOD SPECIMENOrdering Facility: [facility] Address: [address] [place] [address] Result Comment: The result suggests no evidence of active infection with Hepatitis C virus. Should recent infection be suspected, repeat testing may be considered 4-6 weeks after this draw. Performed By: #### 1 6128-1 ####[facility] LABCLIA [id number] [place] [address] [place] Amylase SerPl-cCncon 025 Amylase [Catalytic activity/Vol] 77 U/L Normal 30-104 [facility] Comment on above: Order Comment: Pati husain Type: BLOOD SPECIMENOrdering Facility: [facility] Address: [address] [place] [address] Performed By: #### 2 4323-8 ####[facility] IRAM [place] SALEMNCLIA [id number] [place] [id number] [place] [address] [place]#### 1798-8, 3040-3 ####[facility] LABCLIA [id number] [address] [place] CBC W Auto Differential pane l (Bld)on 10-16-2024 Basophils (Bld) [#/Vol] 0.07 10*3/uL [facility] Basophils/100 WBC (Bld) 1.5 % C [facility] Differential cell count method Nom (Bld) Auto [facility] Eosinophils (Bld) [#/Vol] 0.08 10*3/uL [facility] Eosinophils/100 WBC (Bld) 1.7 % [facility] Erythrocyte distribution width (RBC) [Ratio] 13.2 % 11.5 - 15.0 % [facility] Hematocrit (Bld) [Volume fraction] 42.8 % 36.0 - 46.0 % [facility] Hemoglobin (Bld) [Mass/Vol] 14.3 g/dL 11.5 - 15.5 g/dL [facility] Immature granulocytes (Bld) [#/Vol] [facility] Immature granulocytes/100 WBC (Bld) 0.2 % [facility] Lymphocytes (Bld) [#/Vol] 1.31 10*3/uL [facility] Lymphocytes/100 WBC (Bld) 27.6 % [facility] MCH (RBC) [Entitic mass] 29.1 pg 26. 0 - 34.0 pg [facility] MCHC (RBC) [Mass/Vol] 33.4 g/dL 30.5 - 36.0 g/dL [facility] MCV (RBC) [Entitic vol] 87.2 fL 80.0 - 100.0 fL [facility] Monocytes (Bld) [#/Vol] 0.66 10*3/uL [facility] Monocytes/100 WBC (Bld) 13.9 % C [facility] Neutrophils (Bld) [#/Vol] 2.61 10*3/uL [facility] Neutrophils/100 WBC (Bld) 55.1 % [facility] Nucleated RBC (Bld) [#/Vol] NINF [facility] Nucleated RBC/100 WBC (Bld) [Ratio] 0.0 % /100 WBC [facility] Platelet mean volume (Bld) [Entitic vol] 11.5 fL 9.0 - 12.7 fL [facility] Platelets (Bld) [#/Vol] 318 10*3/uL [facility] RBC (Bld) [#/Vol] 4.91 10*6/uL 3.90 - 5.2 0 m/uL [facility] WBC (Bld) [#/Vol] 4.74 10*3/uL [facility] Basophils (Bld) [#/Vol] 0.07 10*3/uL Normal <0.11 [facility] Comment on above: Order Comment: Speci men Type: BLOOD SPECIMENOrdering Facility: [facility] Address: [address] [place] [address] Performed By: #### 5 7021-8 ####[facility] [id number] [place] [address] [place] Basophils/100 WBC (Bld) 1.5 % Normal C [facility] Comment on above: Order Comment: Speci men Type: BLOOD SPECIMENOrdering Facility: [facility] Address: [address] [place] [address] Performed By: #### 5 7021-8 ####[facility] [id number] [place] [address] [place] Differential cell count method Nom (Bld) Auto Normal [facility] Comment on above: Order Comment: Speci men Type: BLOOD SPECIMENOrdering Facility: [facility] Address: [address] [place] [address] Performed By: #### 5 7021-8 ####[facility] [id number] [place] [address] [place] Eosinophils (Bld) [#/Vol] 0.08 10*3/uL Normal <0.46 [facility] Comment on above: Order Comment: Speci men Type: BLOOD SPECIMENOrdering Facility: [facility] Address: [address] [place] [address] Performed By: #### 5 7021-8 ####[facility]ITALKRISTIN [id number] [place] [address] [place] Eosinophils/100 WBC (Bld) 1.7 % Normal [facility] Comment on above: Order Comment: Speci men Type: BLOOD SPECIMENOrdering Facility: [facility] Address: [address] [place] [address] Performed By: #### 5 7021-8 ####[facility]ITALNC[facility] [id number] [place] [address] [place] Erythrocyte distribution width (RBC) [Ratio] 13.2 % Normal 11.5-15.0 [facility] Comment on above: Order Comment: Speci men Type: BLOOD SPECIMENOrdering Facility: [facility] Address: [address] [place] [address] Performed By: #### 5 7021-8 ####[facility] [id number] [place] [address] [place] Hematocrit (Bld) [Volume fraction] 42.8 % Normal 36.0-46.0 [facility] Comment on above: Order Comment: Speci men Type: BLOOD SPECIMENOrdering Facility: [facility] Address: [address] [place] [address] Performed By: #### 5 7021-8 ####[facility]ITALLIA [id number] [place] [address] [place] Hemoglobin (Bld) [Mass/Vol] 14.3 g/dL Normal 11.5-15.5 [facility] Comment on above: Order Comment: Speci men Type: BLOOD SPECIMENOrdering Facility: [facility] Address: [address] [place] [address] Performed By: #### 5 7021-8 ####[facility] MILLTOWNCLIA [id number] [place] [address] [place] Immature granulocytes (Bld) [#/Vol] 10*3/uL Normal <0.10 [facility] Comment on above: Order Comment: Speci men Type: BLOOD SPECIMENOrdering Facility: [facility] Address: [address] [place] [address] Performed By: #### 5 7021-8 ####[facility]ITALWNCLIA [id number] [place] [address] [place] Immature granulocytes/100 WBC (Bld) 0.2 % Normal [facility] Comment on above: Order Comment: Speci men Type: BLOOD SPECIMENOrdering Facility: [facility] Address: [address] [place] [address] Performed By: #### 5 7021-8 ####[facility]OSPITALLIA [id number] [place] [address] [place] Lymphocytes (Bld) [#/Vol] 1.31 10*3/uL Normal 1.00-4.00 [facility] Comment on above: Order Comment: Speci men Type: BLOOD SPECIMENOrdering Facility: [facility] Address: [address] [place] [address] Performed By: #### 5 7021-8 ####[facility] MILLWNCLIA [id number] [place] [address] [place] Lymphocytes/100 WBC (Bld) 27.6 % Normal [facility] Comment on above: Order Comment: Speci men Type: BLOOD SPECIMENOrdering Facility: [facility] Address: [address] [place] [address] Performed By: #### 5 7021-8 ####[facility]ITALNCLIA [id number] [place] [address] [place] MCH (RBC) [Entitic mass] 29.1 pg Normal 26.0-34.0 [facility] Comment on above: Order Comment: Speci men Type: BLOOD SPECIMENOrdering Facility: [facility] Address: [address] [place] [address] Performed By: #### 5 7021-8 ####[facility] HOSPITALANIYAH [id number] [place] MCHC (RBC) [Mass/Vol] 33.4 g/dL Normal 30.5-36.0 [facility] [facility] Comment on above: Order Comment: Speci men Type: BLOOD SPECIMENOrdering Facility: [facility] Address: [address] [place] [address] Performed By: #### 5 7021-8 ####[facility] HOSPITALNCMELISSA [id number] [address] [place] MCV (RBC) [Entitic vol] 87.2 fL Normal 80.0-100.0 C [facility] Comment on above: Order Comment: Speci men Type: BLOOD SPECIMENOrdering Facility: [facility] Address: [address] [place] [address] Performed By: #### 5 7021-8 ####[facility] HOSPITALANIYAH [id number] [place] [address] [place] Monocytes (Bld) [#/Vol] 0.66 10*3/uL Normal <0.87 [facility] Comment on above: Order Comment: Speci men Type: BLOOD SPECIMENOrdering Facility: [facility] Address: [address] [place] [address] Performed By: #### 5 7021-8 ####[facility] HOSPITALNCLIA [id number] [address] [place] Monocytes/100 WBC (Bld) 13.9 % Normal C [facility] Comment on above: Order Comment: Speci men Type: BLOOD SPECIMENOrdering Facility: [facility] Address: [address] [place] [address] Performed By: #### 5 7021-8 ####[facility] SAMMYWINSTON SALEMLAKESHIALIA [id number] [place] [address] [place] Neutrophils (Bld) [#/Vol] 2.61 10*3/uL Normal 1.45-7.50 [facility] Comment on above: Order Comment: Speci men Type: BLOOD SPECIMENOrdering Facility: [facility] Address: [address] [place] [address] Performed By: #### 5 7021-8 ####[facility] [id number] [place] [address] [place] Neutrophils/100 WBC (Bld) 55.1 % Normal [facility] Comment on above: Order Comment: Speci men Type: BLOOD SPECIMENOrdering Facility: [facility] Address: [address] [place] [address] Performed By: #### 5 7021-8 ####[facility] [id number] [place] [address] [place] Nucleated RBC (Bld) [#/Vol] 10*3/uL Normal <0.01 [facility] Comment on above: Order Comment: Speci men Type: BLOOD SPECIMENOrdering Facility: [facility] Address: [address] [place] [address] Performed By: #### 5 7021-8 ####[facility] [id number] [place] [address] [place] Nucleated RBC/100 WBC (Bld) [Ratio] 0.0 /100 WBC Normal [facility] Comment on above: Order Comment: Speci men Type: BLOOD SPECIMENOrdering Facility: [facility] Address: [address] [place] [address] Performed By: #### 5 7021-8 ####[facility] MILLJOLIEWNCLIA [id number] [place] [address] [place] Platelet mean volume (Bld) [Entitic vol] 11.5 fL Normal 9.0-12.7 [facility] Comment on above: Order Comment: Speci men Type: BLOOD SPECIMENOrdering Facility: [facility] Address: [address] [place] [address] Performed By: #### 5 7021-8 ####[facility] SAMMYWNCLIA [id number] [place] [address] [place] Platelets (Bld) [#/Vol] 318 10*3/uL Normal 150-400 [facility] Comment on above: Order Comment: Speci men Type: BLOOD SPECIMENOrdering Facility: [facility] Address: [address] [place] [address] Performed By: #### 5 7021-8 ####[facility] SAMMYPREETHILIA [id number] [place] [address] [place] RBC (Bld) [#/Vol] 4.91 10*6/uL Normal 3.90-5.20 [facility] Comment on above: Order Comment: Speci men Type: BLOOD SPECIMENOrdering Facility: [facility] Address: [address] [place], [place] [address] Performed By: #### 5 7021-8 ####[facility] LEONWNCLIA [id number] [place] [address] [place] WBC (Bld) [#/Vol] 4.74 10*3/uL Normal 3.70-11.00 [facility] Comment on above: Order Comment: Speci men Type: BLOOD SPECIMENOrdering Facility: [facility] Address: [address] [place] [address] Performed By: #### 5 7021-8 ####[facility] HOSPITALLAKESHIAA [id number] [place] [address] [place] CNOVon 10-16-2024 CNOV Office Visit (SHIELAWS) BETSY RODRIGEZ ([id number]) 1955 F Date Time Provider Department 10/16/24 8:40 AM OLEG FIELDS During your visit today, we recorded the following information about you: Pulse Respiration Blood pressure Weight 74/minute 14/minute 144/80 73.9 kg Oleg Fields, ALEXA.DIE POLISHER 10/16/2024 8:53 AM Signed Chief Complaint Patient [...] 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 Johnson Dysphagia Dr. Stiles Ectopic 1991 GERD (gastroesophageal reflux disease) History of prediabetes Hyperlipidemia Hypertension Hypothyroidism Obesity (BMI 30.0-34.9) Other pulmonary embolism without acute cor pulmonale (HCC) Pneumonia [facility] to [facility] virus Requiring intubation Previous Surgical History PAST [...] cyst removal from eyelids TONSILLECTOMY HX 195 Family History FAMILY HISTORY Problem Relation Age of Onset Cancer Mother lung Hypertension Mother Cancer Father lung Cancer Brother lung Stroke Maternal Grandmother or [place], patient unsure Coronary Artery Disease Maternal Grandfather No Known Problems Sister Patient Allergies ALLERGIES Allergen Reactions Meagan Inhibitors Rash Codeine Vomiting, Other: See Comments Headache Remeron [Mirtazapin* Other: See Comments Fatigue Ynqzgvt-Fjp-Bej Red* Myalgia [place] Unknown Zetia [Ezetimibe] Myalgia Current Medications Current [...] hours as needed for pain. mv,jaci,iron,mn/folic acid/chol ([id number]-IEHF-JUDYY, PABA, ORAL) Take 1 tablet by mouth [...] 03/28/2023 Covid-19 Vaccine() due on 05/18/2024 Advance (more content not included)... Normal [facility] BETSY RODRIGEZ ([id number]) 1955 F Date Time Provider Department 10/16/24 [facility] During your visit today, we recorded the following information about you: Oleg Fields APRN.DIE POLISHER 10/16/2024 1:38 PM Signed Please call patient and schedule follow up with Dr. Lemos for tomorrow to discuss results and care plan. Also let patient know I have ordered follow up labs. Arin Muñoz MA 10/16/2024 3:00 PM Signed Pt notified and scheduled for a follow up tomorrow MELVA Mcfarlane Danielle, APRN.DIE POLISHER 10/20/2024 10:20 AM Signed Please let patient know her hepatitis panel is negative. Mae Wong MA 10/20/2024 10:40 AM Signed Pt notified of results via Luristic. Mae Wong Ma Allergies As of Date: 10/16/2024 Noted Allergy Reaction MEAGAN INHIBITORS 10/06/2017 2 - Rash CODEINE 10/06/2017 11 - Vomiting 14 - Other: See Comments Comments: Headache REMERON (MIRTAZAPINE) 01/17/2021 14 - Other: See Comments Comments: Fatigue FSOHTEB-XEW-OWS REDUCTASE INHIBIT*11/14/2017 17 - Myalgia [place] 10/06/2017 16 - Unknown ZETIA (EZETIMIBE) 01/17/2021 17 - Myalgia Date Reviewed: 10/16/2024 Reviewed by: Viridiana Torres, RT(R) - Fully Assessed Reason for Visit: Results [95] Primary Visit Diagnosis:Abnormal MRI, liver [R93.2] Order(s):CONSULT TO HEPATOLOGY [[id number]] Order #: [id number]: 1 FUTURE IR INTERVENTIONAL RADIOLOGY CONSULT [[id number]] Order #: [id number] HEP ACUTE PANEL BL [SQHACUTP] Order #: [id number] FUTURE Prescriptions as of 10/20/2024 - ondansetron [...] as needed for pain. - mv,jaci,iron,mn/folic acid/chol (JPCK-BQLA-DYLYE, PABA, ORAL) Take 1 tablet by mouth [...] Status:Closed by MAE WONG on 10/20/24 Normal [facility] CT ABD/PEL W IVCONon 025 CT ABD/PEL W IVCON * * *Final Report* * * DATE OF EXAM: Oct 16 2024 11:11AM [facility] 0530 - CT ABD/PEL W IVCON [...] be communicated with the ordering provider via Index staff message or phone message by Imaging Support Services within 2 business days of report finalization. --END OF FINDING-- Algorithms for management of incidental imaging findings can be found on the [facility] Intranet Sharepoint site at: [email or web address] [email or web address]/[email or web address] links/Managing%20Inc idental%20Findi ngs%20at%20Imaging/F orms/AllItems.aspx Molded Goods Spot Picker: [email or web address] Transcribe Date/Time: Oct 16 2024 11:46A Dictated by : GRAHAM BUSTILLO MD This examination was interpreted and the report reviewed and electronically signed by: GRAHAM BUSTILLO MD on Oct 16 2024 11:58AM EST [id number] CN ACTIONABLE Invalid Interpretation Code [facility] CT Abdomen and Pelvis W cont rast IVOrdered By: [facility] Provider on 10-16-2024 Radiology Result ACTIONABLE Abnormal [facility] Comment on above: This report contains an [...] contact your provider for the next steps. [facility] CT Abdomen and Pelvis W cont [...] be communicated with the ordering provider via Index staff message or phone message by Imaging Support Services within 2 business days of report finalization. --END OF FINDING-- Algorithms for management of incidental imaging findings can be found on the [facility] Intranet Sharepoint site at: [email or web address] [email or web address]/mychart links/Managing%20Inc idental%20Findi ngs%20at%20Imaging/F orms/AllItems.aspx Molded Goods Spot Picker: [email or web address] Transcribe Date/Time: Oct 16 2024 11:46A Dictated by : GRAHAM BUSTILLO MD This examination was interpreted and the report reviewed and electronically signed by: GRAHAM BUSTILLO MD on Oct 16 2024 11:58AM [facility] DIVISION OF RADIOLOGY * * *Final Report* * * DATE OF EXAM: Oct 16 2024 11:11AM [facility] 0530 - CT ABD/PEL W IVCON [...] No additional findings. DIVISION OF RADIOLOGY Provider, [facility] - 10/16/2024 * * *Final Report* * * DATE OF EXAM: Oct 16 2024 11:11AM [facility] 0530 - CT ABD/PEL W IVCON [...] be communicated with the ordering provider via Index staff message or phone message by Imaging Support Services within 2 business days of report finalization. --END OF FINDING-- Algorithms for management of incidental imaging findings can be found on the [facility] Intranet Sharepoint site at: [email or web address] [email or web address] [email or web address]%20Inc idental%20Findi ngs%20at%20Imaging/F orms/AllItems.aspx Molded Goods Spot Picker: [email or web address] Transcribe Date/Time: Oct 16 2024 11:46A Dictated by : GRAHAM BUSTILLO MD This examination was interpreted and the report reviewed and electronically signed by: GRAHAM BUSTILLO MD on Oct 16 2024 11:58AM EST [facility] Radiology Study observation (narrative) [facility] Comprehensive metabolic 2000 panelOrdered By: Jeanette Streeter on 10-16-2024 Albumin [Mass/Vol] 4.3 g/dL 3.9 - 4.9 g/dL [facility] ALP [Catalytic activity/Vol] 128 U/L High 34 - 123 U/L [facility] ALT [Catalytic activity/Vol] 43 U/L High 7 - 38 U/L [facility] Anion gap [Moles/Vol] 7 mmol/L Low 8 - 15 mmol/L [facility] AST [Catalytic activity/Vol] 117 U/L High 13 - 35 U/L [facility] Bilirubin [Mass/Vol] 0.4 mg/dL 0.2 - 1 .3 mg/dL [facility] Calcium [Mass/Vol] 10.6 mg/dL High 8.5 - 10. 2 mg/dL [facility] Chloride [Moles/Vol] 106 mmol/L 98 - 10 7 mmol/L [facility] CO2 [Moles/Vol] 27 mmol/L 22 - 30 mmol/L [facility] Creatinine [Mass/Vol] 0.86 mg/dL 0.58 - 0.96 mg/dL [facility] GFR/1.73 sq M.predicted among non-blacks MDRD (S/P/Bld) [Vol rate/Area] 73 mL/min/{1.73_m2} - PINF [facility] Comment on above: Estimated Glomerular Filtration [...] 108 mg/dL High 74 - 99 mg/dL [facility] Comment on above: The [place] Diabete s Association (ADA) provides guidance for [...] Standards of Medical Care in Diabetes 2016, [place] Diabetes Association. Diabetes Care. 2016.39(Suppl 1). Potassium [Moles/Vol] 4.3 mmol/L 3.7 - 5.1 mmol/L [facility] Protein [Mass/Vol] 7.3 g/dL 6.3 - 8.0 g/dL [facility] Sodium [Moles/Vol] 140 mmol/L 136 - 144 mmol/L [facility] Urea nitrogen [Mass/Vol] 16 mg/dL 7 - 21 mg/d L [facility] Comprehensive metabolic 2000 panelon 10-16-2024 Albumin [Mass/Vol] 4.3 g/dL Normal 3.9-4.9 [facility] Comment on above: Order Comment: Speci men Type: BLOOD SPECIMENOrdering Facility: [facility] Address: [address] [place] [address] Performed By: #### 2 4323-8 ####[facility] HOSPITALLIA [id number] [place] [address] [place]#### 1798-8, 3040-3 ####[facility] LABCLIA [id number] [place] [address] [place] ALP [Catalytic activity/Vol] 128 U/L High 34-123 [facility] Comment on above: Order Comment: Speci men Type: BLOOD SPECIMENOrdering Facility: [facility] Address: [address] [place] [address] Performed By: #### 2 4323-8 ####[facility] HOSPITALNCA [id number] [place] [address] [place]#### 1798-8, 3040-3 ####[facility] LABCLIA [id number] [place] [address] [place] ALT [Catalytic activity/Vol] 43 U/L High 7-38 [facility] Comment on above: Order Comment: Speci men Type: BLOOD SPECIMENOrdering Facility: [facility] Address: [address] [place] [address] Performed By: #### 2 4323-8 ####[facility] HOSPITALLIA [id number] [place] [address] [place]#### 1798-8, 3040-3 ####[facility] LABCLIA [id number] [place] [address] [place] Anion gap [Moles/Vol] 7 mmol/L Low 8-15 [facility] Comment on above: Order Comment: Speci men Type: BLOOD SPECIMENOrdering Facility: [facility] Address: [address] [place], [place] [address] Performed By: #### 2 4323-8 ####[facility] MILLWNCLIA [id number] [place] [address] [place]#### 1798-8, 3040-3 ####[facility] LABCLIA [id number] [place] [address] [place] AST [Catalytic activity/Vol] 117 U/L High 13-35 [facility] Comment on above: Order Comment: Speci men Type: BLOOD SPECIMENOrdering Facility: [facility] Address: [address] [place] [address] Performed By: #### 2 4323-8 ####[facility]PITALWNCLIA [id number] [place] [address] [place]#### 1798-8, 3040-3 ####[facility] LABCLIA [id number] [place] [address] [place] Bilirubin [Mass/Vol] 0.4 mg/dL Normal 0.2-1.3 [facility] Comment on above: Order Comment: Speci men Type: BLOOD SPECIMENOrdering Facility: [facility] Address: [address] [place] [address] Performed By: #### 2 4323-8 ####[facility] MILLWNCLIA [id number] [place] [address] [place]#### 1798-8, 3040-3 ####[facility] LABCLIA [id number] [place] [address] [place] Calcium [Mass/Vol] 10.6 mg/dL High 8.5-10.2 [facility] Comment on above: Order Comment: Speci men Type: BLOOD SPECIMENOrdering Facility: [facility] Address: [address] [place] [address] Performed By: #### 2 4323-8 ####[facility] MILLTOWNCLIA [id number] [place] [address] [place]#### 1798-8, 3040-3 ####[facility] LABCLIA [id number] [address] [address] [place] Chloride [Moles/Vol] 106 mmol/L Normal 98-107 [facility] Comment on above: Order Comment: Speci men Type: BLOOD SPECIMENOrdering Facility: [facility] Address: [address] [place] [address] Performed By: #### 2 4323-8 ####[facility] HOSPITALWNCLIA [id number] [place] [address] [place]#### 1798-8, 3040-3 ####[facility] LABCLIA [id number] [place] [address] [place] CO2 [Moles/Vol] 27 mmol/L Normal 22-30 [facility] Comment on above: Order Comment: Speci men Type: BLOOD SPECIMENOrdering Facility: [facility] Address: [address] [place] [id number] Performed By: #### 2 4323-8 ####[facility] HOSPITALNCLIA [id number] [place] [address] [place]#### 1798-8, 3040-3 ####[facility] LABCLIA [id number] [place] [address] [place] Creatinine [Mass/Vol] 0.86 mg/dL Normal 0.58-0.96 [facility] Comment on above: Order Comment: Speci men Type: BLOOD SPECIMENOrdering Facility: [facility] Address: [address] [place] [id number] Performed By: #### 2 4323-8 ####[facility] HOSPITALNCLI [id number] [place] [address] [place]#### 1798-8, 3040-3 ####[facility] LABIA [id number] [place] [address] [place] Creatinine and Glomerular filtration rate.predicted panel (S/P/Bld) 73 mL/min/1.73m??? Normal >=60 [facility] Comment on above: Order Comment: Pati husain Type: BLOOD SPECIMENOrdering Facility: [facility] Address: [address] [place] [address] Result Comment: Jazlyn mated Glomerular Filtration Rate [...] actual GFR. Performed By: #### 2 4323-8 ####[facility] [id number] [place] [address] [place]#### 1798-8, 3040-3 ####[facility] LABIA [id number] [place] [address] [place] Glucose [Mass/Vol] 108 mg/dL High 74-99 [facility] Comment on above: Order Comment: Pati husain Type: BLOOD SPECIMENOrdering Facility: [facility] Address: [address] [place] [id number] Result Comment: The [place] Diabetes Association (ADA) provides guidance for cutoff [...] Standards of Medical Care in Diabetes 2016, [place] Diabetes Association. Diabetes Care. 2016.39(Suppl 1). Performed By: #### 2 4323-8 ####[facility] HOSPITALWDELIA [id number] [place] [address] [place]#### 1798-8, 3040-3 ####[facility] LABCLIA [id number] [address] [address] [place] Potassium [Moles/Vol] 4.3 mmol/L Normal 3.7-5.1 [facility] Comment on above: Order Comment: Speci men Type: BLOOD SPECIMENOrdering Facility: [facility] Address: [address] [place] [address] Performed By: #### 2 4323-8 ####[facility]OS[facility]ITALLIA [id number] [place] [address] [place]#### 1798-8, 0-3 ####[facility] LABCLIA [id number] [address] [address] [place] Protein [Mass/Vol] 7.3 g/dL Normal 6.3-8.0 [facility] Comment on above: Order Comment: Speci men Type: BLOOD SPECIMENOrdering Facility: [facility] Address: [address] [place] [address] Performed By: #### 2 4323-8 ####[facility]ITALLIA [id number] [place] [address] [place]#### 1798-8, 3040-3 ####[facility] LABCLIA [id number] [address] [address] [place] Sodium [Moles/Vol] 140 mmol/L Normal 136-144 [facility] Comment on above: Order Comment: Speci men Type: BLOOD SPECIMENOrdering Facility: [facility] Address: [facility] [place] [address] Performed By: #### 2 4323-8 ####[facility] MILLTOWNCLIA [id number] [place] [address] [place]#### 1798-8, 3040-3 ####[facility] LABCLIA [id number] [place] [address] [place] Urea nitrogen [Mass/Vol] 16 mg/dL Normal 7-21 [facility] Comment on above: Order Comment: Speci men Type: BLOOD SPECIMENOrdering Facility: [facility] Address: [address] [place] [address] Performed By: #### 2 4323-8 ####[facility] MILLWNCLIA [id number] [place] [address] [place]#### 1798-8, 3040-3 ####[facility] LABCLIA [id number] [place] [address] [place] Lipase SerPl-cCncon 10-16-19 25 Lipase [Catalytic activity/Vol] 77 U/L High 16-61 [facility] Comment on above: Order Comment: Speci men Type: BLOOD SPECIMENOrdering Facility: [facility] Address: [address] [place] [address] Performed By: #### 2 4323-8 ####[facility] MILLWNCLIA [id number] [place] [address] [place]#### 1798-8, 3040-3 ####[facility] LABCLIA [id number] [place] [address] [place] No Panel InformationOrdered By: Ccf Provider on 10-16-2024 Interpretation and review of laboratory results Abnormal [facility] CNOVon 09-19-2024 CNOV Office Visit (FAMPWS) BETSY RODRIGEZ ([id number]) 1955 F Date Time Provider Department 09/19/24 9:40 AM [facility] During your visit today, we recorded the following information about you: Pulse Respiration Blood pressure Weight 73/minute 18/minute 124/68 74.9 kg Girish Lemos MD 09/19/2024 1:08 PM Signed Chief Complaint Patient presents with: Blood Pressure: Recheck-losartan increased to 50mg.No note of call back from [facility] [place] around 09/03/24 as requested with readings. 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 Johnson Dysphagia Dr. Stiles Ectopic 1991 GERD (gastroesophageal reflux disease) History of prediabetes Hyperlipidemia Hypertension Hypothyroidism Obesity (BMI 30.0-34.9) Other pulmonary embolism without acute cor pulmonale (HCC) Pneumonia due to [facility]- virus Requiring intubation Previous Surgical History PAST [...] Cancer Brother lung Stroke Maternal Grandmother or [place], patient unsure Coronary Artery Disease Maternal Grandfather No Known Problems Sister Patient Allergies ALLERGIES Allergen Reactions Meagan Inhibitors Rash Codeine Vomiting, Other: See Comments Headache Remeron [Mirtazapin* Other: See Comments Fatigue Otoegwm-Mvf-Dmk Red* Myalgia [place] Unknown Zetia [Ezetimibe] Myalgia Current Medications Current [...] mouth two times a day. mv,jaci,iron,mn/folic acid/chol (PSZG-NYOB-SKOLJ, PABA, ORAL) Take 1 tablet by mouth [...] Use Topic (more content not included)... Normal [facility] 08-27-2024 CNPN Telephone (FAMPWS) BETSY RODRIGEZ ([id number]) 1955 F Date Time Provider Department 08/27/24 GIRISH LEMOS [facility] During your visit today, we recorded the following information about you: Marta Meadows RN 08/27/2024 9:44 AM Signed Jeanne- Bobby Sandoval [facility]- reports she received a referral from patient's insurance company, once patient's losartan was increased, for their 3 mth monitoring program. [facility] monitors quality of life, checks VS's, monitor's [...] am: 168/88, at 4 pm: 148/85, on - BP at 8 am: 173/89, at 4 [...] 10:51 AM Signed Jeanne- [facility] called and is notified of providers message and instructions. She voices understanding and will send updated Bps in one week. Rachael Baker RN Allergies As of Date: 08/27/2024 Noted Allergy Reaction MEAGAN INHIBITORS 10/06/2017 2 - Rash CODEINE 10/06/2017 11 - Vomiting 14 - Other: See Comments Comments: Headache REMERON (MIRTAZAPINE) 01/17/2021 14 - Other: See Comments Comments: Fatigue PNDFFDX-TFY-LRB REDUCTASE INHIBIT*11/14/2017 17 - Myalgia [place] 10/06/2017 [...] as needed for pain. - mv,jaci,iron,mn/folic acid/chol (ZXVY-MZVJ-PJKTZ, PABA, ORAL) Take 1 tablet by mouth [...] Encounter Status:Closed by RACHAEL BAKER on 08/27/[address] 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 Johnson Dysphagia Dr. Stiles Ectopic 1991 GERD (gastroesophageal reflux disease) History of prediabetes Hyperlipidemia Hypertension Hypothyroidism Obesity (BMI 30.0-34.9) Other pulmonary embolism without acute cor pulmonale (HCC) Pneumonia due to [place] [address] virus Requiring intubation ALLERGIES Meagan Inhibitors, Codeine, Remeron [Mirtazapine], Fzfnuoj-Edc-Rfw Reductase Inhibitors, [place], and Zetia [Ezetimibe] MEDICATIONS Current Outpatient Medications [...] hours as needed for pain. mv,jaci,iron,mn/folic acid/chol ([id number]-JMTID, PABA, ORAL) Take 1 tablet by mouth [...] visit - LOSARTAN 50 MG TABLET Jeanette Schaefferlogshai, [employer] EVALUATION MANAGER.DIE POLISHER Prescription instructions reviewed with patient as applicable. Patient advised if symptoms do not improve or if symptoms worsen sooner, to contact their primary care physician. Potential red flag symptoms discussed with the patient. Reviewed appropriate action plan to take if red flag symptoms occur. Patient agreeable to treatmen (more content not included)... Normal [facility] CNOVon 07-15-2024 CNOV Office Visit (FAMPWS) BETSY RODRIGEZ ([id number]) 1955 F Date Time Provider Department 07/15/24 9:00 AM JEANETTE BERRIOS During your visit today, we recorded the following information about you: Pulse Respiration Blood pressure Weight 50/minute 18/minute 157/80 79.4 kg Jeanette Berrios APRN.DIE POLISHER 07/15/2024 10:23 AM Signed 07/15/2024 Patient presents [...] No. 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 Last visit in May. 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 Johnson Dysphagia Dr. Stiles Ectopic 1991 GERD (gastroesophageal reflux disease) History of prediabetes Hyperlipidemia Hypertension Hypothyroidism Obesity (BMI 30.0-34.9) Other pulmonary embolism without acute cor pulmonale (HCC) Pneumonia due to [facility]- virus Requiring intubation ALLERGIES Meagan Inhibitors, Codeine, Remeron [Mirtazapine], Yfaynmp-Hsj-Fis Reductase Inhibitors, [place], and Zetia [Ezetimibe] MEDICATIONS Current Outpatient Medications [...] hours as needed for pain. mv,jaci,iron,mn/folic acid/chol (CIYH-BCVS-PCEAK, PABA, ORAL) Take 1 tablet by mouth [...] - 7 (more content not included)... Normal [facility] Comprehensive metabolic 2000 panelon 07-15-2024 Albumin [Mass/Vol] 4.5 g/dL Normal 3.9-4.9 [facility] Comment on above: Order Comment: Speci men Type: BLOOD SPECIMEN Ordering Facility: [facility] Address: [address] [place] [address] Performed By: #### 2 2314-9, 52970-6, 5194-3 #### [facility] CLIA [id number] [address] [place], [place] [id number] [place] ALP [Catalytic activity/Vol] 86 U/L Normal 34-123 [facility] Comment on above: Order Comment: Speci men Type: BLOOD SPECIMEN Ordering Facility: [facility] Address: [address] [place] [address] Performed By: #### 2 2314-9, 25990-8, 5194-3 #### [facility] CLIA [id number] [address] [place] [address] [place] ALT [Catalytic activity/Vol] 20 U/L Normal 7-38 [facility] Comment on above: Order Comment: Speci men Type: BLOOD SPECIMEN Ordering Facility: [facility] Address: [address] [place] [address] Performed By: #### 2 2314-9, 87670-3, 3 #### [facility] CLIA [id number] [address] [place] [address] [place] Anion gap [Moles/Vol] 11 mmol/L Normal 8-15 [facility] Comment on above: Order Comment: Speci men Type: BLOOD SPECIMEN Ordering Facility: [facility] Address: [address] [place] [address] Performed By: #### 2 2314-9, 54149-0, 5194-3 #### [facility] CLIA [id number] [address] [place] [address] [place] AST [Catalytic activity/Vol] 27 U/L Normal 13-35 [facility] Comment on above: Order Comment: Speci men Type: BLOOD SPECIMEN Ordering Facility: [facility] Address: [address] [place] [address] Performed By: #### 2 2314-9, 88811-8, 5194-3 #### [facility] CLIA [id number] [address] [place] [address] [place] Bilirubin [Mass/Vol] 0.3 mg/dL Normal 0.2-1.3 [facility] Comment on above: Order Comment: Speci men Type: BLOOD SPECIMEN Ordering Facility: [facility] Address: [address] [place] [address] Performed By: #### 2 2314-9, 03507-9, 5194-3 #### [facility] CLIA [id number] [address] [place] [address] [place] Calcium [Mass/Vol] 9.7 mg/dL Normal 8.5-10.2 [facility] Comment on above: Order Comment: Speci men Type: BLOOD SPECIMEN Ordering Facility: [facility] Address: [address] [place] [address] Performed By: #### 2 2314-9, 60402-1, 3 #### [facility] CLIA [id number] [address] [place] [address] [place] Chloride [Moles/Vol] 108 mmol/L High 98-107 [facility] Comment on above: Order Comment: Speci men Type: BLOOD SPECIMEN Ordering Facility: [facility] Address: [address] [place] [address] Performed By: #### 2 2314-9, 11712-1, 3 #### [facility] CLIA [id number] [address] [place] [address] [place] CO2 [Moles/Vol] 25 mmol/L Normal 22-30 [facility] Comment on above: Order Comment: Speci men Type: BLOOD SPECIMEN Ordering Facility: [facility] Address: [address] [place] [address] Performed By: #### 2 2314-9, 05079-8, 5194-3 #### [facility] CLIA [id number] [address] [place] [address] [place] Creatinine [Mass/Vol] 0.90 mg/dL Normal 0.58-0.96 [facility] Comment on above: Order Comment: Pati husain Type: BLOOD SPECIMEN Ordering Facility: [facility] Address: [address] [place] [address] Performed By: #### 2 2314-9, 48080-1, 5195-3 #### [facility] CLIA [id number] [address] [place] [address] [place] Creatinine and Glomerular filtration rate.predicted panel (S/P/Bld) 69 mL/min/1.73m??? Normal >=60 [facility] Comment on above: Order Comment: Pati husain Type: BLOOD SPECIMEN Ordering Facility: [facility] Address: [address] [place] [address] Result Comment: Jazlyn mated Glomerular Filtration Rate [...] actual GFR. Performed By: #### 2 2314-9, 89031-7, 5-3 #### [facility] CLIA [id number] [address] [place] [address] [place] Glucose [Mass/Vol] 81 mg/dL Normal 74-99 [facility] Comment on above: Order Comment: Pati husain Type: BLOOD SPECIMEN Ordering Facility: [facility] Address: [address] [place] [address] Result Comment: The [place] Diabetes Association (ADA) provides guidance for cutoff [...] Standards of Medical Care in Diabetes 2016, [place] Diabetes Association. Diabetes Care. 2016.39(Suppl 1). Performed By: #### 2 2314-9, 33253-4, 5194- #### [facility] CLIA [id number] [address] [place] [id number] [place] Potassium [Moles/Vol] 3.8 mmol/L Normal 3.7-5.1 [facility] Comment on above: Order Comment: Speci men Type: BLOOD SPECIMEN Ordering Facility: [facility] Address: [address] [place] [address] Performed By: #### 2 2314-9, 39989-0, 5194-11 #### [facility] CLIA [id number] [address] [place] [address] [place] Protein [Mass/Vol] 6.9 g/dL Normal 6.3-8.0 [facility] Comment on above: Order Comment: Speci men Type: BLOOD SPECIMEN Ordering Facility: [facility] Address: [address] [place] [address] Performed By: #### 2 2314-9, 33022-8, 5194-11 #### [facility] CLIA [id number] [address] [place], [place] [id number] [place] Sodium [Moles/Vol] 144 mmol/L Normal 136-144 [facility] Comment on above: Order Comment: Speci men Type: BLOOD SPECIMEN Ordering Facility: [facility] Address: [address] [place] [address] Performed By: #### 2 2314-9, 79972-1, 5194-11 #### [facility] CLIA [id number] [address] [place] [address] [place] Urea nitrogen [Mass/Vol] 15 mg/dL Normal 7-21 [facility] Comment on above: Order Comment: Speci men Type: BLOOD SPECIMEN Ordering Facility: [facility] Address: [address] [place] [address] Performed By: #### 2 2314-9, 65167-8, 5195-3 #### [facility] CLIA [id number] [address] [place] [address] [place] HbA1c (Bld)on 07-15-2024 Average glucose Estimated from glycated hemoglobin (Bld) [Mass/Vol] 120 mg/dL Normal [facility] Comment on above: Order Comment: Pati husain Type: BLOOD SPECIMEN Ordering Facility: [facility] Address: [address] [place] [address] Result Comment: eAG: (Estimated average glucose) is a calculated value from HgbA1c and is claim service representative of the average blood glucose level in the last 2-3 month period. Performed By: #### 5 5454-3 #### [facility] CLIA [id number] [address] [place] [address] [place] HbA1c (Bld) [Mass fraction] 5.8 % High 4.3-5.6 [facility] Comment on above: Order Comment: Pati husain Type: BLOOD SPECIMEN Ordering Facility: [facility] Address: [address] [place] [address] Result Comment: [place] Diabetes Association guidelines indicate that patients with HgbA1c in the range 5.7-6.4% are at increased risk for development of diabetes, and intervention by lifestyle modification may be beneficial. HgbA1c greater or equal to 6.5% is considered diagnostic of diabetes. Performed By: #### 5 5454-3 #### [facility] CLIA [id number] [address] [place] [address] [place] Pulmonary Visit Reporton Pulmonary Visit Report Normal [facility] CV ARTERIAL U OR L SINGLE PH YSIOLOon 06-13-2024 CV ARTERIAL U OR L SINGLE [address] [address] Patient: BETSY RODRIGEZ Phone#: : 1955 Age: 68 Gender: F Pt. Type: Out Account: [id number] Location: 052 Ordering: XUAN GARCIA Exam Date: 06/13/2024/7:48 Family Phys: GIRISH LEMOS Charge Code: 941604 Physician: Tompkins Order #: [id number] Dose#: PROCEDURE: ARTERIAL BILAT U OR L [...] 181 184 Ankle (DPA): 190 186 Ankle (RIBBON INKER): 209 193 ANKLE BRACHIAL INDEX RIGHT LEFT 1.14 1.05 Cloth Classer: RICARDO FINDINGS: Right Lower Extremity: The right lower extremity demonstrates normal triphasic Doppler signals at the posterior tibial, and dorsalis pedis arteries. Volume pulse recordings are normal throughout the extremity demonstrating a sharp systolic peak and prominent dicrotic notch. Left Lower Extremity: Continued Report - Page 2 of 2 Patient: BETSY RODRIGEZ Phone#: : 1955 Age: 68 Gender: F Pt. Type: Out Account: [id number] Location: 052 Ordering: XUAN GARCIA Exam Date: 06/13/2024/7:48 Family Phys: GIRISH LEMOS Charge Code: [id number] Physician: Tompkins Order #: [id number] Dose#: The left lower extremity demonstrates normal [...] Bonner MD on 06/13/2024 at 13:12 Normal [facility] Fluor Guidance for Spine Inj on 06-02-2024 Fluor Guidance for Spine Inj Normal [facility] MR/POSTOP.ANEon 06-02-2024 MR/POSTOP.ANE Normal [facility] MR/[id number] 06-02-2024 MR/POSTOPAN2 Normal [facility] Operative Reporton Operative Report Normal [facility] Echo Complete W/ Contraston 04-01-2024 Echo Complete W/ Contrast Normal [facility] LIPID PROFILEon 03-06-2024 Cholesterol [Mass/Vol] 231 mg/dL Normal 0 - [address] [facility] Comment on above: Performed By: #### 2 13151 #### [facility],[address] [place] [address] Cholesterol in HDL [Mass/Vol] 66 mg/dL High 40 - 60 [facility] Comment on above: Performed By: #### 2 92111 #### [facility],[address] [place] [address] Cholesterol in LDL [Mass/Vol] 151 mg/dL High 0 - 129 [facility] Comment on above: Performed By: #### 2 85428 #### [facility],[address] [place] [address] Cholesterol.total/Choles terol in HDL [Mass ratio] 3.5 {ratio} Normal 0.0 - 5.0 [facility] Comment on above: Performed By: #### 2 14641 #### [facility],[address] [place] [address] Lipid 1996 panel Normal [facility] Comment on above: Result Comment: LIPI D PROFILE Performed By: #### 2 84689 #### [facility],[address] [place] [address] Triglyceride [Mass/Vol] 71 mg/dL Normal 0 - 150 [facility] Comment on above: Performed By: #### 2 69365 #### [facility],[address] [place] [address] LIPID PROFILEon 06-21-2023 Cholesterol [Mass/Vol] 159 mg/dL Normal 0 - [address] [facility] Comment on above: Performed By: #### 2 15427 #### [facility],[address] [place] [address] Cholesterol in HDL [Mass/Vol] 62 mg/dL High 40 - 60 [facility] Comment on above: Performed By: #### 2 83743 #### [facility],[address] [place] [address] Cholesterol in LDL [Mass/Vol] 86 mg/dL Normal 0 - 129 [facility] Comment on above: Performed By: #### 2 51414 #### [facility],[address] [place] [address] Cholesterol.total/Choles terol in HDL [Mass ratio] 2.6 {ratio} Normal 0.0 - 5.0 [facility] Comment on above: Performed By: #### 2 36000 #### [facility],[address] [place] [address] Lipid 1996 panel Normal [facility] Comment on above: Result Comment: LIPI D PROFILE Performed By: #### 2 23084 #### [facility],[address] [place] [address] Triglyceride [Mass/Vol] 57 mg/dL Normal 0 - 150 [facility] Comment on above: Performed By: #### 2 02449 #### [facility],[address] [place] [address] 11427 CBC W Auto Differential pane l (Bld)on 02-20-2023 Basophils (Bld) [#/Vol] 0.05 10*3/uL <0.11 k/uL [facility] Basophils/100 WBC (Bld) 0.9 % [facility] Differential cell count method Nom (Bld) Auto [facility] Eosinophils (Bld) [#/Vol] 0.15 10*3/uL <0.46 k/uL [facility] Eosinophils/100 WBC (Bld) 2.8 % [facility] Erythrocyte distribution width (RBC) [Ratio] 13.0 % 11.5 - 15.0 % [facility] Hematocrit (Bld) [Volume fraction] 46.0 % 36.0 - 46.0 % [facility] Hemoglobin (Bld) [Mass/Vol] 14.9 g/dL 11.5 - 15.5 g/dL [facility] Immature granulocytes (Bld) [#/Vol] <0.10 k/uL [facility] Immature granulocytes/100 WBC (Bld) 0.4 % [facility] Lymphocytes (Bld) [#/Vol] 1.41 10*3/uL 1.00 - 4.00 k/uL [facility] Lymphocytes/100 WBC (Bld) 26.2 % [facility] MCH (RBC) [Entitic mass] 28.8 pg 26. 0 - 34.0 pg [facility] MCHC (RBC) [Mass/Vol] 32.4 g/dL 30.5 - 36.0 g/dL [facility] MCV (RBC) [Entitic vol] 88.8 fL 80.0 - 100.0 fL [facility] Monocytes (Bld) [#/Vol] 0.66 10*3/uL <0.87 k/uL [facility] Monocytes/100 WBC (Bld) 12.2 % [facility] Neutrophils (Bld) [#/Vol] 3.10 10*3/uL 1.45 - 7.50 k/uL [facility] Neutrophils/100 WBC (Bld) 57.5 % [facility] Nucleated RBC (Bld) [#/Vol] <0.01 k/uL [facility] Nucleated RBC/100 WBC (Bld) [Ratio] 0.0 /100 WBC [facility] Platelet mean volume (Bld) [Entitic vol] 10.9 fL 9.0 - 12.7 fL [facility] Platelets (Bld) [#/Vol] 308 10*3/uL 150 - 400 k/uL [facility] RBC (Bld) [#/Vol] 5.18 10*6/uL 3.90 - 5.2 0 m/uL [facility] WBC (Bld) [#/Vol] 5.39 10*3/uL 3.70 - 11. 00 k/uL [facility] XR FOOT GENERAL 3V AP/LAT/OB L LEFTon 01-24-2023 [facility] DXA-AXIAL SKELETONon 023 LOWEST T-SCORE -0.7 [facility] Absolute lymphocyte counton 09-13-2022 Lymphocytes Auto (Unsp spec) [#/Vol] 1.57 10*3/uL 0.83-4.51 [facility] Work Phone: Basophil percentageon 2021 Basophils/100 WBC (Bld) 0.6 % 0-1 [facility] Work Phone: Bilirubin [Mass/Vol] 0.50 mg/dL 0.20-1.00 [facility] Work Phone: Comment on above: For patients on eltr ombopag therapy, use of [facility] TBIL is not recommended. Chloride [Moles/Vol] 107 mmol/L 98-107 [facility] Work Phone: Eosinophils/100 WBC (Bld) 1.8 % 0-5 [facility] Work Phone: Glucose [Mass/Vol] 102 mg/dL 74-106 [facility] Work Phone: Comment on above: Fasting Glucose resu lt from 100 to 125 mg/dL suggests IMPAIRED HOMEOSTASIS per A.D.A. criteria. Neutrophils (Bld) [#/Vol] 4.4 10*3/uL 2.0-7.7 [facility] Work Phone: Neutrophils/100 WBC (Bld) 62.2 % 47-70 [facility] Work Phone: Potassium [Moles/Vol] 4.9 mmol/L 3.5-5.1 [facility] Work Phone: Comment on above: Moderate Hemolysis, Result may be falsely increased. Protein [Mass/Vol] 7.2 g/dL 6.4-8.2 [facility] Work Phone: Sodium [Moles/Vol] 141 mmol/L 136-145 [facility] Work Phone: WBC (Bld) [#/Vol] 7.1 10*3/uL 4.4-11.0 [facility] Work Phone: [phone] Blood erythrocytes count (nu mber/volume)on 09-13-2022 RBC (Bld) [#/Vol] 5.37 10*6/uL 4.2-5.4 [facility] Work Phone: [phone] Blood hemoglobin measurement (mass/volume)on 09-13-2022 Hemoglobin (Bld) [Mass/Vol] 15.8 g/dL 12.0-15.0 [facility] Work Phone: [phone] Blood lymphocytes/100 leukoc yteson 09-13-2022 Lymphocytes/100 WBC (Bld) 22.2 % 19-41 [facility] Work Phone: [phone] Blood monocytes/100 leukocyt eson 09-13-2022 Monocytes/100 WBC (Bld) 12.4 % 0-10 [facility] Work Phone: [phone] Blood platelet mean volumeon 09-13-2022 Platelet mean volume (Bld) [Entitic vol] 9.7 fL 6.2-12.0 [facility] Work Phone: Determination of erythrocyte mean corpuscular volume (MCV)on 09-13-2022 MCV (RBC) [Entitic vol] 88.5 fL 81-99 [facility] Work Phone: [phone] Hematocrit Auto (Bld) [Volum e fraction]on 09-13-2022 Hematocrit (Bld) [Volume fraction] 47.5 % 37-47 [facility] Work Phone: Laboratory - Chemistry and C hemistry - challengeon 09-13-2022 ALP [Catalytic activity/Vol] 100 U/L 45-117 [facility] Work Phone: ALT [Catalytic activity/Vol] 69 U/L 13-56 [facility] Work Phone: [phone] CO2 [Moles/Vol] 27.0 mmol/L 21.0-32.0 [facility] Work Phone: [phone] Globulin (S) [Mass/Vol] 3.9 g/dL 2.2-4.2 [facility] Work Phone: [phone] Urea nitrogen/Creatinine [Mass ratio] 17.6 mg/mg 10-20 [facility] Work Phone: [phone] Laboratory - Hematology and Cell countson 09-13-2022 Erythrocyte distribution width (RBC) [Entitic vol] 42.7 fL 35.1-43.9 [facility] Work Phone: [phone] Erythrocyte distribution width (RBC) [Ratio] 13.1 % 11.6-14.6 [facility] Work Phone: [phone] Immature granulocytes/100 WBC (Bld) 0.800 % 0.0-0.9 [facility] Work Phone: [phone] Comment on above: IG% - Immature Granu locytes (promyelocytes, myelocytes and metamyelocytes) > 1% indicates that a LEFT SHIFT is Present. MCH (RBC) [Entitic mass] 29.4 pg 27.0-32.0 [facility] Work Phone: [phone] Nucleated RBC/100 WBC (Bld) [Ratio] 0 % 0-5 [facility] Work Phone: [phone] MCHC Auto (RBC) [Mass/Vol]on 09-13-2022 MCHC (RBC) [Mass/Vol] 33.3 g/dL 32-36 [facility] Work Phone: [phone] No Panel Informationon 09-13 Estimated Creatinine Clearance Calc 41.81 ml/min [facility] Work Phone: [phone] Estimated GFR (MDRD) Amer 65 mL/min >60 [facility] Work Phone: [phone] Comment on above: GFR Calc Estimated GFR (MDRD) Non-Af Amer 54 mL/min >60 [facility] Work Phone: [phone] Comment on above: Non- GFR Calc Platelets bldon 09-13-2022 Platelets (Bld) [#/Vol] 336 10*3/uL 150-450 [facility] Work Phone: Serum or plasma albumin jayro urement (mass/volume)on 09-13-2022 Albumin [Mass/Vol] 3.3 g/dL 3.2-5.0 [facility] Work Phone: Serum or plasma albumin/glob ulin mass ratioon 09-13-2022 Albumin/Globulin [Mass ratio] 0.8 {ratio} 0.9-2.4 [facility] Work Phone: [phone] Serum or plasma calcium jayro urement (mass/volume)on 09-13-2022 Calcium [Mass/Vol] 9.3 mg/dL 8.5-10.1 [facility] Work Phone: Serum or plasma creatinine m easurement (mass/volume)on 09-13-2022 Creatinine [Mass/Vol] 1.08 mg/dL 0.55-1.02 [facility] Work Phone: Comment on above: The validity of the calculated GFR & GFRAA in patients over 70 years has not been determined. Clinical correlation is essential. Serum or plasma urea nitroge n measurement (mass/volume)on 09-13-2022 Urea nitrogen [Mass/Vol] 19 mg/dL 7-18 [facility] Work Phone: Thin prep Papanicolaou smear with manual screeningon 09-13-2022 Thin prep Papanicolaou smear with manual screening 53 U/L 15-37 [facility] Work Phone: Comment on above: Moderate Hemolysis, Result may be falsely increased. Thin prep Papanicolaou smear with manual screening 7 5-15 [facility] Work Phone: UA DIP, URINE (POC)on 2021 BILIRUBIN UA (POCT) Negative Negative [facility] CLARITY UA (POCT) Slightly Cloudy Cl [facility] COLOR UA (POCT) Dark yellow [facility] GLUCOSE UA (POCT) Negative Negative mg/dL [facility] HEMOGLOBIN/BLOOD UA (POCT) Large Abnormal Negative [facility] KETONE UA (POCT) Negative Negative mg/dL [facility] LEUKOCYTES UA (POCT) Negative Negative [facility] NITRITE UA (POCT) Negative Negative [facility] PH UA (POCT) 5.5 4.5 - 8.0 [facility] Protein Ql (U) 30 mg/dL Abnormal Negative mg/dL [facility] SPECIFIC GRAVITY UA (POCT) 1.025 1.005 - 1.030 [facility] UROBILINOGEN UA (POCT) 0.2 E.U./dL Mellissa l E.U./dL [facility] 2019 CORONAVIRUSon 2 SARS-CoV-2 (COVID-19) RNA DEBBY+probe Ql (Resp) SARS-CoV-2 (Agent of COVID-19) Not Detected by RT-PCR or equivalent method. Not Detected [facility] XR Chest PA and Lateralon IMPRESSION: Stable chest. No acute cardiopulmonary process. Molded Good[employer] Spot Picker: [email or web address] Transcribe Date/Time: Nov 25 2021 1:45P Dictated by : ADRIANA KUMAR MD This examination was interpreted and the report reviewed and electronically signed by: ADRIANA KUMAR MD on Nov 25 2021 1:48PM [facility] DIVISION OF RADIOLOGY * * *Final Report* [...] structures are intact DIVISION OF RADIOLOGY Provider, [facility] [place] - 11/25/2021 * * *Final Report* * [...] IMPRESSION: Stable chest. No acute cardiopulmonary process. [employer] Spot Picker: [email or web address] Transcribe Date/Time: Nov 25 2021 1:45P Dictated by : ADRIANA KUMAR MD This examination was interpreted and the report reviewed and electronically signed by: ADRIANA KUMAR MD on Nov 25 2021 1:48PM EST [facility] Radiology Study observation (narrative) Anant schneider [facility] XR Chest PA and LateralOrder ed By: [facility] Provider on 11-25-2021 [facility] Absolute lymphocyte counton 11-17-2021 Lymphocytes Auto (Unsp spec) [#/Vol] 0.65 10*3/uL 0.83-4.51 [facility] Work Phone: Basophil percentageon 2021 Basophils/100 WBC (Bld) 0.2 % 0-1 [facility] Work Phone: Chloride [Moles/Vol] 103 mmol/L 98-107 [facility]: Eosinophils/100 WBC (Bld) 0.2 % 0-5 [facility] Work Phone: Glucose [Mass/Vol] 98 mg/dL 74-106 [facility] Work Phone: Neutrophils (Bld) [#/Vol] 5.0 10*3/uL 2.0-7.7 [facility] Work Phone: Neutrophils/100 WBC (Bld) 75.4 % 47-70 [facility] Work Phone: Potassium [Moles/Vol] 3.5 mmol/L 3.5-5.1 [facility] Work Phone: Sodium [Moles/Vol] 135 mmol/L 136-145 [facility] Work Phone: WBC (Bld) [#/Vol] 6.7 10*3/uL 4.4-11.0 [facility] Work Phone: Blood erythrocytes count (nu mber/volume)on 11-17-2021 RBC (Bld) [#/Vol] 4.70 10*6/uL 4.2-5.4 [facility] Work Phone: Blood hemoglobin measurement (mass/volume)on 11-17-2021 Hemoglobin (Bld) [Mass/Vol] 13.5 g/dL 12.0-15.0 [facility] Work Phone: Blood lymphocytes/100 leukoc yteson 11-17-2021 Lymphocytes/100 WBC (Bld) 9.8 % 19-41 [facility] Work Phone: Blood monocytes/100 leukocyt eson 11-17-2021 Monocytes/100 WBC (Bld) 13.5 % 0-10 [facility] Work Phone: Blood platelet mean volumeon 11-17-2021 Platelet mean volume (Bld) [Entitic vol] 10.9 fL 6.2-12.0 [facility] Work Phone: Determination of erythrocyte mean corpuscular volume (MCV)on 11-17-2021 MCV (RBC) [Entitic vol] 86.2 fL 81-99 [facility] Work Phone: Hematocrit Auto (Bld) [Volum e fraction]on 11-17-2021 Hematocrit (Bld) [Volume fraction] 40.5 % 37-47 [facility] Work Phone: [phone] Laboratory - Chemistry and C hemistry - challengeon 11-17-2021 CO2 [Moles/Vol] 27.0 mmol/L 21.0-32.0 [facility] Work Phone: [phone] Urea nitrogen/Creatinine [Mass ratio] 17.5 mg/mg 10-20 [facility] Work Phone: [phone] Laboratory - Hematology and Cell countson 11-17-2021 Erythrocyte distribution width (RBC) [Entitic vol] 42.7 fL 35.1-43.9 [facility] Work Phone: [phone] Erythrocyte distribution width (RBC) [Ratio] 13.4 % 11.6-14.6 [facility] Work Phone: [phone] Immature granulocytes/100 WBC (Bld) 0.900 % 0.0-0.9 [facility] Work Phone: [phone] Comment on above: IG% - Immature Granu locytes (promyelocytes, myelocytes and metamyelocytes) > 1% indicates that a LEFT SHIFT is Present. MCH (RBC) [Entitic mass] 28.7 pg 27.0-32.0 [facility] Work Phone: [phone] Nucleated RBC/100 WBC (Bld) [Ratio] 0 % 0-5 [facility] Work Phone: [phone] MCHC Auto (RBC) [Mass/Vol]on 11-17-2021 MCHC (RBC) [Mass/Vol] 33.3 g/dL 32-36 [facility] Work Phone: [phone] Panel Informationon 11-17 Estimated Creatinine Clearance Calc 43.84 ml/min [facility] Work Phone: [phone] Estimated GFR (MDRD) Amer 69 mL/min >60 [facility] Work Phone: [phone] Comment on above: GFR Calc Estimated GFR (MDRD) Non-Af Amer 57 mL/min >60 [facility] Work Phone: [phone] Comment on above: Non- GFR Calc Platelets bldon 11-17-2021 Platelets (Bld) [#/Vol] 228 10*3/uL 150-450 [facility] Work Phone: Serum or plasma calcium jayro urement (mass/volume)on 11-17-2021 Calcium [Mass/Vol] 9.1 mg/dL 8.5-10.1 [facility] Work Phone: Serum or plasma creatinine m easurement (mass/volume)on 11-17-2021 Creatinine [Mass/Vol] 1.03 mg/dL 0.55-1.02 [facility] Work Phone: Comment on above: The validity of the calculated GFR & GFRAA in patients over 70 years has not been determined. Clinical correlation is essential. Serum or plasma urea nitroge n measurement (mass/volume)on 11-17-2021 Urea nitrogen [Mass/Vol] 18 mg/dL 7-18 [facility] Work Phone: Thin prep Papanicolaou smear with manual screeningon 11-17-2021 Thin prep Papanicolaou smear with manual screening 5 5-15 [facility] Work Phone: XR Chest PA and Lateralon [...] to pulmonary artery hypertension or hilar lymphadenopathy. [employer] Picker: [email or web address] Transcribe Date/Time: Nov 15 2021 3:09P Dictated by : RAJIV DONOVAN MD This examination was interpreted and the report reviewed and electronically signed by: RAJIV DONOVAN MD on Nov 15 2021 3:43PM [facility] DIVISION OF RADIOLOGY * * *Final Report* [...] right chest wall. DIVISION OF RADIOLOGY Provider, [facility] [place] - 11/15/2021 * * *Final Report* * [...] to pulmonary artery hypertension or hilar lymphadenopathy. [employer] Spot Picker: [email or web address] Transcribe Date/Time: Nov 15 2021 3:09P Dictated by : RAJIV DONOVAN MD This examination was interpreted and the report reviewed and electronically signed by: RAJIV DONOVAN MD on Nov 15 2021 3:43PM [facility] Radiology Study observation (narrative) Anant schneider [facility] XR Chest PA and LateralOrder ed By: [facility]cf Provider on 11-15-2021 [facility] Absolute lymphocyte counton 11-12-2021 Lymphocytes Auto (Unsp spec) [#/Vol] 0.57 10*3/uL 0.83-4.51 [facility] Work Phone: Basophil percentageon 2021 Basophils/100 WBC (Bld) 0.6 % 0-1 [facility] Work Phone: Chloride [Moles/Vol] 108 mmol/L 98-107 [facility] Work Phone: Eosinophils/100 WBC (Bld) 0.5 % 0-5 [facility] Work Phone: Glucose [Mass/Vol] 135 mg/dL 74-106 [facility] Work Phone: Comment on above: Fasting Glucose resu lt greater than or equal to 126 mg/dL suggests DIABETES MELLITUS per A.D.A. criteria. Neutrophils (Bld) [#/Vol] 4.8 10*3/uL 2.0-7.7 [facility] Work Phone: Neutrophils/100 WBC (Bld) 74.4 % 47-70 [facility] Work Phone: Potassium [Moles/Vol] 3.7 mmol/L 3.5-5.1 [facility] Work Phone: Sodium [Moles/Vol] 140 mmol/L 136-145 [facility] Work Phone: WBC (Bld) [#/Vol] 6.5 10*3/uL 4.4-11.0 [facility] Work Phone: Blood erythrocytes count (nu mber/volume)on 11-12-2021 RBC (Bld) [#/Vol] 4.93 10*6/uL 4.2-5.4 [facility] Work Phone: Blood hemoglobin measurement (mass/volume)on 11-12-2021 Hemoglobin (Bld) [Mass/Vol] 14.6 g/dL 12.0-15.0 [facility] Work Phone: Blood lymphocytes/100 leukoc yteson 11-12-2021 Lymphocytes/100 WBC (Bld) 8.8 % 19-41 [facility] Work Phone: [phone] Blood manual differential co mment interpretation (narrative result)on 11-12-2021 Manual differential comment Scott (Bld) [Interp] See comment [facility] Work Phone: Comment on above: LYMPHOPENIA NOTED Blood monocytes/100 leukocyt eson 11-12-2021 Monocytes/100 WBC (Bld) 15.4 % 0-10 [facility] Work Phone: Blood platelet adequacy dete ction by light microscopyon 11-12-2021 Platelets LM Ql (Bld) ADEQUATE ADEQ [facility] Work Phone: [phone] Blood platelet mean volumeon 11-12-2021 Platelet mean volume (Bld) [Entitic vol] 10.2 fL 6.2-12.0 [facility] Work Phone: Determination of erythrocyte mean corpuscular volume (MCV)on 11-12-2021 MCV (RBC) [Entitic vol] 86.0 fL 81-99 [facility] Work Phone: [phone] Hematocrit Auto (Bld) [Volum e fraction]on 11-12-2021 Hematocrit (Bld) [Volume fraction] 42.4 % 37-47 [facility] Work Phone: [phone] Laboratory - Chemistry and C hemistry - challengeon 11-12-2021 CO2 [Moles/Vol] 24.0 mmol/L 21.0-32.0 [facility] Work Phone: [phone] Urea nitrogen/Creatinine [Mass ratio] 13.3 mg/mg 10-20 [facility] Work Phone: [phone] Laboratory - Hematology and Cell countson 11-12-2021 Erythrocyte distribution width (RBC) [Entitic vol] 42.1 fL 35.1-43.9 [facility] Work Phone: [phone] Erythrocyte distribution width (RBC) [Ratio] 13.4 % 11.6-14.6 [facility] Work Phone: [phone] Immature granulocytes/100 WBC (Bld) 0.300 % 0.0-0.9 [facility] Work Phone: [phone] Comment on above: IG% - Immature Granu locytes (promyelocytes, myelocytes and metamyelocytes) > 1% indicates that a LEFT SHIFT is Present. MCH (RBC) [Entitic mass] 29.6 pg 27.0-32.0 [facility] Work Phone: [phone] Nucleated RBC/100 WBC (Bld) [Ratio] 0 % 0-5 [facility] Work Phone: [phone] MCHC Auto (RBC) [Mass/Vol]on 11-12-2021 MCHC (RBC) [Mass/Vol] 34.4 g/dL 32-36 [facility] Work Phone: No Panel Informationon 11-12 Estimated Creatinine Clearance Calc 43.01 ml/min [facility] Work Phone: [phone] Estimated GFR (MDRD) Amer 67 mL/min >60 [facility] Work Phone: Comment on above: GFR Calc Estimated GFR (MDRD) Non-Af Amer 56 mL/min >60 [facility] Work Phone: Comment on above: Non- GFR Calc SARS-CoV-2 Antigen (Rapid) [facility] Work Phone: [phone] Platelets bldon 11-12-2021 Platelets (Bld) [#/Vol] 264 10*3/uL 150-450 [facility] Work Phone: [phone] RBC morphologyon 11-12-2021 RBC morphology finding Nom (Bld) NORM C+C NORMAL NORM C&C [facility] Work Phone: [phone] Serum or plasma calcium jayro urement (mass/volume)on 11-12-2021 Calcium [Mass/Vol] 9.5 mg/dL 8.5-10.1 [facility] Work Phone: [phone] or plasma creatinine m easurement (mass/volume)on 11-12-2021 Creatinine [Mass/Vol] 1.05 mg/dL 0.55-1.02 [facility] Work Phone: Comment on above: The validity of the calculated GFR & GFRAA in patients over 70 years has not been determined. Clinical correlation is essential. Serum or plasma urea nitroge n measurement (mass/volume)on 11-12-2021 Urea nitrogen [Mass/Vol] 14 mg/dL 7-18 [facility] Work Phone: Thin prep Papanicolaou smear with manual screeningon 11-12-2021 Thin prep Papanicolaou smear with manual screening 8 5-15 [facility] Work Phone: Vital Signs Date Time Vital Sign Value Performing Clinician Facility 03-16-2025 09:15-0400 Body height 160.[address] Fabricio Lemos MD Work Phone: 1(279)644-077293 [place] [address] 03-16-2025 09:15-0400 Body mass index (BMI) [Ratio] 25.4 kg/m2 Dr. Fabricio Lemos MD Work Phone: 9(359)489-456193 [place] [address] 03-16-2025 09:15-0400 Body temperature 97.3 [degF] Dr. Fabricio Lemos MD Work Phone: 3(554)309-010683 [place] [address] 03-16-2025 09:15-0400 Body weight 65.[address] Fabricio Lemos MD Work Phone: 2(885)631-673393 [place] [address] 03-16-2025 09:15-0400 Diastolic blood pressure 76 mm[Hg] Dr. Fabricio Lemos MD Work Phone: 9(633)467-649593 [place] [address] 03-16-2025 09:15-0400 Heart rate 65 /min Dr. Fabricio Lemos MD Work Phone: 1(292)073-937583 [place] [address] 03-16-2025 09:15-0400 Respiratory rate 16 /min Dr. Fabricio Lemos MD Work Phone: 6(872)686-051593 [place] [address] 03-16-2025 09:15-0400 SaO2% (BldA) [Mass fraction] 92 % Dr. Fabricio Lemos MD Work Phone: 6(411)099-044893 [place] [address] 03-16-2025 09:15-0400 Systolic blood pressure 128 mm[Hg] Dr. Fabricio Lemos MD Work Phone: 9(327)301-769093 [place] [address] 02-27-2025 14:42-0400 Body temperature 98.1 [degF] Dr. Fabricio Lemos MD Work Phone: 5(910)059-283693 [place] [address] 02-27-2025 14:42-0400 Diastolic blood pressure 70 mm[Hg] Dr. Fabricio Lemos MD Work Phone: 9(481)832-014793 [place] [address] 02-27-2025 14:42-0400 Heart rate 64 /min Dr. Fabricio Lemos MD Work Phone: 3(139)486-165993 [place] [address] 02-27-2025 14:42-0400 Respiratory rate 16 /min Dr. Fabricio Lemos MD Work Phone: 5(535)782-821893 [place] [address] 02-27-2025 14:42-0400 SaO2% (BldA) [Mass fraction] 94 % Dr. Fabricio Lemos MD Work Phone: 8(590)869-970293 [place] [address] 02-27-2025 14:42-0400 Systolic blood pressure 138 mm[Hg] Dr. Fbaricio Lemos MD Work Phone: 1(844)751-365693 [place] [address] 02-24-2025 09:13-0400 Body height 160.[address] Fabricio Lemos MD Work Phone: 9(223)550-315393 [place] [address] 02-24-2025 09:13-0400 Body mass index (BMI) [Ratio] 25.5 kg/m2 Dr. Fabricio Lemos MD Work Phone: 1(118)119-878093 [place] [address] 02-24-2025 09:13-0400 Body temperature 98.6 [degF] Dr. Fabricio Lemos MD Work Phone: 0(141)583-047593 [place] [address] 02-24-2025 09:13-0400 Body weight 65.[address] Fabricio Lemos MD Work Phone: 9(273)980-042993 [place] [address] 02-24-2025 09:13-0400 Diastolic blood pressure 79 mm[Hg] Dr. Fabricio Lemos MD Work Phone: 9(926)933-596293 [place] [address] 02-24-2025 09:13-0400 Heart rate 63 /min Dr. Fabricio Lemos MD Work Phone: 3(405)543-027393 [place] [address] 02-24-2025 09:13-0400 Respiratory rate 16 /min Dr. Fabricio Lemos MD Work Phone: 2(936)269-021793 [place] [address] 02-24-2025 09:13-0400 SaO2% (BldA) [Mass fraction] 94 % Dr. Fabricio Lemos MD Work Phone: 8(982)575-391893 [place] [address] 02-24-2025 09:13-0400 Systolic blood pressure 136 mm[Hg] Dr. Fabricio Lemos MD Work Phone: 5(696)341-256293 [place] [address] 02-16-2025 09:00-0400 Body temperature 98.2 [degF] Dr. Fabricio Lemos MD Work Phone: 9(021)230-708993 [place] [address] 02-16-2025 09:00-0400 Diastolic blood pressure 58 mm[Hg] Dr. Fabricio Lemos MD Work Phone: 6(937)287-502293 [place] [address] 02-16-2025 09:00-0400 Heart rate 70 /min Dr. Fabricio Lemos MD Work Phone: 3(617)855-024493 [place] [address] 02-16-2025 09:00-0400 Respiratory rate 16 /min Dr. Fabricio Lemos MD Work Phone: 3(126)991-417993 [place] [address] 02-16-2025 09:00-0400 SaO2% (BldA) [Mass fraction] 94 % Dr. Fabricio Lemos MD Work Phone: 8(174)257-681393 [place] [address] 02-16-2025 09:00-0400 Systolic blood pressure 105 mm[Hg] Dr. Fabricio Lemos MD Work Phone: 6(519)346-788593 [place] [address] 02-16-2025 07:38-0400 Body height 160.[address] Fabricio Lemos MD Work Phone: 9(815)115-087793 [place] [address] 02-16-2025 07:38-0400 Body mass index (BMI) [Ratio] 25.7 kg/m2 Dr. Fabricio Lemos MD Work Phone: 8(490)031-664893 [place] [address] 02-16-2025 07:38-0400 Body weight [address] Fabricio Lemos MD Work Phone: 2(100)301-918493 [place] [address] 02-06-2025 12:18-0400 Body temperature 97.2 [degF] Dr. Fabricio Lemos MD Work Phone: 7(661)235-086293 [place] [address] 02-06-2025 12:18-0400 Diastolic blood pressure 82 mm[Hg] Dr. Fabricio Lemos MD Work Phone: 6(859)822-670193 [place] [address] 02-06-2025 12:18-0400 Heart rate 57 /min Dr. Fabricio Lemos MD Work Phone: 8(505)453-719893 [place] [address] 02-06-2025 12:18-0400 Respiratory rate 16 /min Dr. Fabricio Lemos MD Work Phone: 5(508)097-097993 [place] [address] 02-06-2025 12:18-0400 SaO2% (BldA) [Mass fraction] 97 % Dr. Fabricio Lemos MD Work Phone: 6(885)529-002393 [place] [address] 02-06-2025 12:18-0400 Systolic blood pressure 156 mm[Hg] Dr. Fabricio Lemos MD Work Phone: 5(325)464-257293 [place] [address] 02-05-2025 12:48-0400 Body mass index (BMI) [Ratio] 26.1 kg/m2 Dr. Fabricio Lemos MD Work Phone: 8(605)218-084893 [place] [address] 02-05-2025 12:48-0400 Body weight 66.[address] Fabricio Lemos MD Work Phone: 4(684)604-772393 [place] [address] 02-03-2025 09:31-0400 Body height 160.[address] Fabricio Lemos MD Work Phone: 2(500)245-513193 [place] [address] 02-03-2025 09:31-0400 Body weight 64.[address] Fabricio Lemos MD Work Phone: 7(968)745-206983 [place] [address] 02-03-2025 09:01-0400 Body mass index (BMI) [Ratio] 25 kg/m2 Dr. Fabricio Lemos MD Work Phone: 1(370)686-027683 [place] [address] 02-03-2025 09:01-0400 Body temperature 97.4 [degF] Dr. Fabricio Lemos MD Work Phone: 1(568)564-072393 [place] [address] 02-03-2025 09:01-0400 Body weight 64.[address] Fabricio Lemos MD Work Phone: 3(363)559-960993 [place] [address] 02-03-2025 09:01-0400 Diastolic blood pressure 81 mm[Hg] Dr. Fabricio Lemos MD Work Phone: 5(701)956-710393 [place] [address] 02-03-2025 09:01-0400 Heart rate 76 /min Dr. Fabricio Lemos MD Work Phone: 6(640)832-811983 [place] [address] 02-03-2025 09:01-0400 Respiratory rate 16 /min Dr. Fabricio Lemos MD Work Phone: 1(320)070-399093 [place] [address] 02-03-2025 09:01-0400 SaO2% (BldA) [Mass fraction] 92 % Dr. Fabricio Lemos MD Work Phone: 4(546)998-619283 [place] [address] 02-03-2025 09:01-0400 Systolic blood pressure 134 mm[Hg] Dr. Fabricio Lemos MD Work Phone: [facility] 01-26-2025 13:02-0400 Body mass index (BMI) [Ratio] 24.71 kg/m2 Girish Lemos MD Work Phone: [facility] 01-26-2025 13:02-0400 Body temperature 99.3 [degF] Girish Lemos MD Work Phone: [facility] 01-26-2025 13:02-0400 Body weight 64.05 kg Girish Lemos MD Work Phone: [facility] 01-26-2025 13:02-0400 Diastolic blood pressure 66 mm[Hg] Girish Lemos MD Work Phone: [facility] 01-26-2025 13:02-0400 Heart rate 80 /min Girish Lemos MD Work Phone: [facility] 01-26-2025 13:02-0400 Respiratory rate 16 /min Girish Lemos MD Work Phone: [facility] 01-26-2025 13:02-0400 SaO2% (BldA) [Mass fraction] 95 % Girish Lemos MD Work Phone: [facility] 01-26-2025 13:02-0400 Systolic blood pressure 116 mm[Hg] Girish Lemos MD Work Phone: [facility] 01-13-2025 09:27-0400 Body mass index (BMI) [Ratio] 23.97 kg/m2 Girish Lemos MD Work Phone: [facility] 01-13-2025 09:27-0400 Body weight 62.14 kg Girish Lemos MD Work Phone: [facility] 01-13-2025 09:27-0400 Diastolic blood pressure 60 mm[Hg] Girish Lemos MD Work Phone: [facility] 01-13-2025 09:27-0400 Heart rate 72 /min Girish Lemos MD Work Phone: [facility] 01-13-2025 09:27-0400 Respiratory rate 16 /min Girish Lemos MD Work Phone: [facility] 01-13-2025 09:27-0400 SaO2% (BldA) [Mass fraction] 98 % Girish Lemos MD Work Phone: [facility] 01-13-2025 09:27-0400 Systolic blood pressure 104 mm[Hg] Girish Lemos MD Work Phone: [facility] 01-10-2025 14:35-0400 Body temperature 98.4 [degF] Dr. Fabricio Lemos MD Work Phone: 9(280)312-958993 [place] [address] 01-10-2025 14:35-0400 Diastolic blood pressure 65 mm[Hg] Dr. Fabricio Lemos MD Work Phone: 7(669)315-373693 [place] [address] 01-10-2025 14:35-0400 Heart rate 72 /min Dr. Fabricio Lemos MD Work Phone: 0(441)125-622493 [place] [address] 01-10-2025 14:35-0400 Respiratory rate 14 /min Dr. Fabricio Lemos MD Work Phone: 7(200)403-625993 [place] [address] 01-10-2025 14:35-0400 SaO2% (BldA) [Mass fraction] 94 % Dr. Fabricio Lemos MD Work Phone: 1(604)891-476493 [place] [address] 01-10-2025 14:35-0400 Systolic blood pressure 118 mm[Hg] Dr. Fabricio Lemos MD Work Phone: 9(455)754-725693 [place] [address] 01-10-2025 13:49-0400 Body height 160.[address] Fabricio Lemos MD Work Phone: 9(288)731-868293 [place] [address] 01-10-2025 13:49-0400 Body weight 65.[address] Fabricio Lemos MD Work Phone: 0(782)088-256893 [place] [address] 01-10-2025 08:31-0400 Inhaled oxygen flow rate 2 L/min Dr. Fabricio Lemos MD Work Phone: 1(107)873-418593 [place] [address] 01-10-2025 03:07-0400 Body mass index (BMI) [Ratio] 25.7 kg/m2 Dr. Fabricio Lemos MD Work Phone: 3(154)548-700693 [place] [address] 01-08-2025 14:51-0400 Diastolic blood pressure 74 mm[Hg] Dr. Fabricio Lemos MD Work Phone: 7(818)620-023793 [place] [address] 01-08-2025 14:51-0400 Heart rate 57 /min Dr. Fabricio Lemos MD Work Phone: 1(356)528-344493 [place] [address] 01-08-2025 14:51-0400 Respiratory rate 16 /min Dr. Fabricio Lemos MD Work Phone: 8(786)265-509593 [place] [address] 01-08-2025 14:51-0400 Systolic blood pressure 156 mm[Hg] Dr. Fabricio Lemos MD Work Phone: 5(342)751-594293 [place] [address] 01-08-2025 12:54-0400 Body temperature 97.1 [degF] Dr. Fabricio Lemos MD Work Phone: 8(681)442-517393 [place] [address] 01-08-2025 12:54-0400 SaO2% (BldA) [Mass fraction] 97 % Dr. Fabricio Lemos MD Work Phone: 8(196)997-581993 [place] [address] 01-06-2025 08:55-0400 Body mass index (BMI) [Ratio] 24.4 kg/m2 Dr. Fabricio Lemos MD Work Phone: 3(130)990-585393 [place] [address] 01-06-2025 08:55-0400 Body temperature 97 [degF] Dr. Fabricio Lemos MD Work Phone: 6(013)705-215093 [place] [address] 01-06-2025 08:55-0400 Body weight 62.[address] Fabricio Lemos MD Work Phone: 0(647)958-083193 [place] [address] 01-06-2025 08:55-0400 Diastolic blood pressure 80 mm[Hg] Dr. Fabricio Lemos MD Work Phone: 8(857)368-625793 [place] [address] 01-06-2025 08:55-0400 Heart rate 71 /min Dr. Fabricio Lemos MD Work Phone: 7(913)820-863793 [place] [address] 01-06-2025 08:55-0400 Respiratory rate 16 /min Dr. Fabricio Lemos MD Work Phone: 4(133)463-868793 [place] [address] 01-06-2025 08:55-0400 SaO2% (BldA) [Mass fraction] 95 % Dr. Fabricio Lemos MD Work Phone: 0(284)713-030493 [place] [address] 01-06-2025 08:55-0400 Systolic blood pressure 127 mm[Hg] Dr. Fabricio Lemos MD Work Phone: 6(460)133-277793 [place] [address] 12-29-2024 13:46-0400 Body mass index (BMI) [Ratio] 24.4 kg/m2 Dr. Fabricio Lemos MD Work Phone: 9(233)468-909393 [place] [address] 12-29-2024 13:46-0400 Body temperature 98.2 [degF] Dr. Fabricio Lemos MD Work Phone: 8(632)530-475493 [place] [address] 12-29-2024 13:46-0400 Body weight 62.[address] Fabricio Lemos MD Work Phone: 8(491)809-336993 [place] [address] 12-29-2024 13:46-0400 Diastolic blood pressure 74 mm[Hg] Dr. Fabricio Lemos MD Work Phone: 8(695)761-540693 [place] [address] 12-29-2024 13:46-0400 Heart rate 69 /min Dr. Fabricio Lemos MD Work Phone: 7(259)786-350193 [place] [address] 12-29-2024 13:46-0400 Respiratory rate 16 /min Dr. Fabricio Lemos MD Work Phone: 8(832)793-560993 [place] [address] 12-29-2024 13:46-0400 SaO2% (BldA) [Mass fraction] 93 % Dr. Fabricio Lemos MD Work Phone: 0(928)477-875093 [place] [address] 12-29-2024 13:46-0400 Systolic blood pressure 121 mm[Hg] Dr. Fabricio Lemos MD Work Phone: 7(047)198-748393 [place] [address] 12-16-2024 08:51-0400 Body mass index (BMI) [Ratio] 25.7 kg/m2 Dr. Fabricio Lemos MD Work Phone: 1(957)233-839293 [place] [address] 12-16-2024 08:51-0400 Body temperature 98.4 [degF] Dr. Fabricio Lemos MD Work Phone: 9(035)755-456293 [place] [address] 12-16-2024 08:51-0400 Body weight 65.[address] Fabricio Lemos MD Work Phone: 3(981)192-220893 [place] [address] 12-16-2024 08:51-0400 Diastolic blood pressure 79 mm[Hg] Dr. Fabricio Lemos MD Work Phone: 2(386)078-117793 [place] [address] 12-16-2024 08:51-0400 Heart rate 71 /min Dr. Fabricio Lemos MD Work Phone: 9(145)[phone] [place] [address] 12-16-2024 08:51-0400 Respiratory rate 14 /min Dr. Fabricio Lemos MD Work Phone: 6([phone] [place] [address] 12-16-2024 08:51-0400 SaO2% (BldA) [Mass fraction] 93 % Dr. Fabricio Lemos MD Work Phone: [phone] [facility] [place] [address] 12-16-2024 08:51-0400 Systolic blood pressure 144 mm[Hg] Dr. Fabricio Lemos MD Work Phone: 9(573)863-225793 [place] [address] 12-12-2024 12:35-0400 Body temperature 98.2 [degF] Dr. Fabricio Lemos MD Work Phone: 1(678)594-684293 [place] [address] 12-12-2024 12:35-0400 Diastolic blood pressure 67 mm[Hg] Dr. Fabricio Lemos MD Work Phone: 6(158)742-589193 [place] [address] 12-12-2024 12:35-0400 Heart rate 80 /min Dr. Fabricio Lemos MD Work Phone: 8(782)519-211093 [place] [address] 12-12-2024 12:35-0400 Inhaled oxygen flow rate 2 L/min Dr. Fabricio Lemos MD Work Phone: 8(889)797-597293 [place] [address] 12-12-2024 12:35-0400 Respiratory rate 18 /min Dr. Fabricio Lemos MD Work Phone: 0(694)555-477993 [place] [address] 12-12-2024 12:35-0400 SaO2% (BldA) [Mass fraction] 95 % Dr. Fabricio Lemos MD Work Phone: 9(850)062-636393 [place] [address] 12-12-2024 12:35-0400 Systolic blood pressure 121 mm[Hg] Dr. Fabricio Lemos MD Work Phone: 0(819)532-799293 [place] [address] 12-12-2024 10:51-0400 Body height 160.[address] Fabricio Lemos MD Work Phone: 2(578)855-077693 [place] [address] 12-12-2024 10:51-0400 Body mass index (BMI) [Ratio] 26.2 kg/m2 Dr. Fabricio Lemos MD Work Phone: 8(423)315-562593 [place] [address] 12-12-2024 10:51-0400 Body weight [address] Fabircio Lemos MD Work Phone: 4(515)569-138493 [place] [address] 12-10-2024 12:46-0400 Body height 160.[address] Fabricio Lemos MD Work Phone: 7(496)211-060893 [place] [address] 12-10-2024 12:46-0400 Body mass index (BMI) [Ratio] 26.7 kg/m2 Dr. Fabricio Lemos MD Work Phone: 5(407)308-863993 [place] [address] 12-10-2024 12:46-0400 Body weight 68.[address] Fabricio Lemos MD Work Phone: 0(052)175-754093 [place] [address] 12-10-2024 12:46-0400 Diastolic blood pressure 71 mm[Hg] Dr. Fabricio Lemos MD Work Phone: 6(635)888-894293 [place] [address] 12-10-2024 12:46-0400 Heart rate 81 /min Dr. Fabricio Lemos MD Work Phone: 7(333)289-406293 [place] [address] 12-10-2024 12:46-0400 Respiratory rate 17 /min Dr. Fabricio Lemos MD Work Phone: 5(304)553-538893 [place] [address] 12-10-2024 12:46-0400 SaO2% (BldA) [Mass fraction] 93 % Dr. Fabricio Lemos MD Work Phone: 6(732)544-407793 [place] [address] 12-10-2024 12:46-0400 Systolic blood pressure 135 mm[Hg] Dr. Fabricio Lemos MD Work Phone: 1(686)286-118693 [place] [address] 12-09-2024 10:45-0400 Body mass index (BMI) [Ratio] 26.7 kg/m2 Dr. Fabricio Lemos MD Work Phone: 5(650)553-106193 [place] [address] 12-09-2024 10:45-0400 Body temperature 97.8 [degF] Dr. Fabricio Lemos MD Work Phone: 9(551)106-187093 [place] [address] 12-09-2024 10:45-0400 Body weight 68.[address] Fabricio Lemos MD Work Phone: 4(571)582-206393 [place] [address] 12-09-2024 10:45-0400 Diastolic blood pressure 73 mm[Hg] Dr. Fabricio Lemos MD Work Phone: 4(076)040-603293 [place] [address] 12-09-2024 10:45-0400 Heart rate 77 /min Dr. Fabricio Lemos MD Work Phone: 0(120)449-016893 [place] [address] 12-09-2024 10:45-0400 Respiratory rate 16 /min Dr. Fabricio Lmeos MD Work Phone: 8(146)222-049493 [place] [address] 12-09-2024 10:45-0400 SaO2% (BldA) [Mass fraction] 93 % Dr. Fabricio Lemos MD Work Phone: 9(280)651-167293 [place] [address] 12-09-2024 10:45-0400 Systolic blood pressure 125 mm[Hg] Dr. Fabricio Lemos MD Work Phone: 6(372)899-787693 [place] [address] 12-02-2024 13:20-0400 Body mass index (BMI) [Ratio] 28 kg/m2 Dr. Fabricio Lemos MD Work Phone: 1(512)585-364593 [place] [address] 12-02-2024 13:20-0400 Body temperature 97.8 [degF] Dr. Fabricio Lemos MD Work Phone: 7(597)245-892893 [place] [address] 12-02-2024 13:20-0400 Body weight 71.[address] Fabricio Lemos MD Work Phone: 1(786)635-764493 [place] [address] 12-02-2024 13:20-0400 Diastolic blood pressure 77 mm[Hg] Dr. Fabricio Lemos MD Work Phone: 7(535)398-458293 [place] [address] 12-02-2024 13:20-0400 Heart rate 78 /min Dr. Fabricio Lemos MD Work Phone: 9(459)441-134993 [place] [address] 12-02-2024 13:20-0400 Respiratory rate 16 /min Dr. Fabricio Lemos MD Work Phone: 5(850)284-903293 [place] [address] 12-02-2024 13:20-0400 SaO2% (BldA) [Mass fraction] 94 % Dr. Fabricio Lemos MD Work Phone: 7(206)734-488193 [place] [address] 12-02-2024 13:20-0400 Systolic blood pressure 128 mm[Hg] Dr. Fabricio Lemos MD Work Phone: 9(825)194-574393 [place] [address] 11-28-2024 08:45-0400 Body temperature 96.2 [degF] Dr. Fabricio Leoms MD Work Phone: 8(383)707-108393 [place] [address] 11-28-2024 08:45-0400 Diastolic blood pressure 69 mm[Hg] Dr. Fabricio Lemos MD Work Phone: 0(286)250-569293 [place] [address] 11-28-2024 08:45-0400 Heart rate 82 /min Dr. Fabricio Lemos MD Work Phone: 4(466)432-904193 [place] [address] 11-28-2024 08:45-0400 Respiratory rate 16 /min Dr. Fabricio Lemos MD Work Phone: 1(060)040-492093 [place] [address] 11-28-2024 08:45-0400 SaO2% (BldA) [Mass fraction] 94 % Dr. Fabricio Lemos MD Work Phone: 7(959)214-826893 [place] [address] 11-28-2024 08:45-0400 Systolic blood pressure 120 mm[Hg] Dr. Fabricio Lemos MD Work Phone: 7(692)031-450093 [place] [address] 11-26-2024 08:22-0400 Inhaled oxygen flow rate 2 L/min Dr. Fabricio Lemos MD Work Phone: 8(832)014-489093 [place] [address] 11-26-2024 08:21-0400 Body mass index (BMI) [Ratio] 28.5 kg/m2 Dr. Fabricio Lemos MD Work Phone: 2(315)969-327793 [place] [address] 11-24-2024 16:29-0400 Body weight 70.[address] Fabricio Lemos MD Work Phone: 0(111)337-977293 [place] [address] 11-24-2024 15:32-0400 Body mass index (BMI) [Ratio] 27.5 kg/m2 Dr. Fabricio Lemos MD Work Phone: 3(188)808-829593 [place] [address] 11-24-2024 15:32-0400 Body temperature 97.5 [degF] Dr. Fabricio Lemos MD Work Phone: 5(868)172-947493 [place] [address] 11-24-2024 15:32-0400 Diastolic blood pressure 74 mm[Hg] Dr. Fabricio Lemos MD Work Phone: 6(862)871-473693 [place] [address] 11-24-2024 15:32-0400 Heart rate 86 /min Dr. Fabricio Lemos MD Work Phone: 8(057)942-597293 [place] [address] 11-24-2024 15:32-0400 Respiratory rate 16 /min Dr. Fabricio Lemos MD Work Phone: 8(563)091-700393 [place] [address] 11-24-2024 15:32-0400 SaO2% (BldA) [Mass fraction] 90 % Dr. Fabricio Lemos MD Work Phone: 6(686)505-961393 [place] [address] 11-24-2024 15:32-0400 Systolic blood pressure 126 mm[Hg] Dr. Fabricio Lemos MD Work Phone: 1(325)077-760693 [place] [address] 11-23-2024 17:39-0400 Diastolic blood pressure 73 mm[Hg] Dr. Fabricio Lemos MD Work Phone: 8(017)564-097893 [place] [address] 11-23-2024 17:39-0400 Heart rate 70 /min Dr. Fabricio Lemos MD Work Phone: 9(914)686-871493 [place] [address] 11-23-2024 17:39-0400 Respiratory rate 18 /min Dr. Fabricio Lemos MD Work Phone: 7(740)134-086493 [place] [address] 11-23-2024 17:39-0400 SaO2% (BldA) [Mass fraction] 98 % Dr. Fabricio Lemos MD Work Phone: 9(455)139-497693 [place] [address] 11-23-2024 17:39-0400 Systolic blood pressure 123 mm[Hg] Dr. Fabricio Lemos MD Work Phone: 9(664)848-689593 [place] [address] 11-23-2024 16:25-0400 Body mass index (BMI) [Ratio] 27.6 kg/m2 Dr. Fabricio Lemos MD Work Phone: 1(567)060-044093 [place] [address] 11-23-2024 16:25-0400 Body weight 70.[address] Fabricio Lemso MD Work Phone: 3(819)849-772793 [place] [address] 11-23-2024 15:39-0400 Body height 160.[address] Fabricio Lemos MD Work Phone: 6(871)643-431193 [place] [address] 11-23-2024 15:39-0400 Body temperature 97.5 [degF] Dr. Fabricio Lemos MD Work Phone: 7(089)733-731693 [place] [address] 11-15-2024 12:29-0500 Body temperature 98.8 [degF] Dr. Fabricio Lemos MD Work Phone: 5(300)249-563593 [place] [address] 11-15-2024 12:29-0500 Diastolic blood pressure 78 mm[Hg] Dr. Fabricio Lemos MD Work Phone: 4(588)203-298093 [place] [address] 11-15-2024 12:29-0500 Heart rate 70 /min Dr. Fabricio Lemos MD Work Phone: 6(427)150-639493 [place] [address] 11-15-2024 12:29-0500 Respiratory rate 18 /min Dr. Fabricio Lemos MD Work Phone: 3(025)033-148193 [place] [address] 11-15-2024 12:29-0500 SaO2% (BldA) [Mass fraction] 98 % Dr. Fabricio Lemos MD Work Phone: [facility] 11-15-2024 12:29-0500 Systolic blood pressure 144 mm[Hg] Dr. Fabricio Lemos MD Work Phone: [facility] 11-15-2024 05:07-0500 Body mass index (BMI) [Ratio] 30.2 kg/m2 Dr. Fabricio Lemos MD Work Phone: [facility] 11-15-2024 05:07-0500 Body weight 77.[address] Fabricio Lemos MD Work Phone: [facility] 11-14-2024 14:28-0500 Inhaled oxygen flow rate 2 L/min Dr. Fabricio Lemos MD Work Phone: [facility] 11-12-2024 08:28-0500 Body mass index (BMI) [Ratio] 27.02 kg/m2 Girish Lemos MD Work Phone: [facility] 11-12-2024 08:28-0500 Body temperature 98.29 [degF] Girish Lemos MD Work Phone: [facility] 11-12-2024 08:28-0500 Body weight 70.03 kg Girish Lemos MD Work Phone: [facility] 11-12-2024 08:28-0500 Diastolic blood pressure 64 mm[Hg] Girish Lemos MD Work Phone: [facility] 11-12-2024 08:28-0500 Heart rate 83 /min Girish Lemos MD Work Phone: [facility] 11-12-2024 08:28-0500 Respiratory rate 16 /min Girish Lemos MD Work Phone: [facility] 11-12-2024 08:28-0500 SaO2% (BldA) [Mass fraction] 93 % Girish Lemos MD Work Phone: [facility] 11-12-2024 08:28-0500 Systolic blood pressure 104 mm[Hg] Girish Lemos MD Work Phone: [facility] 11-05-2024 08:48-0500 Body height 161 cm Silas Robbins MD Work Phone: [facility] 11-05-2024 08:48-0500 Body mass index (BMI) [Ratio] 27.74 kg/m2 Silas Robbins MD Work Phone: [facility] 11-05-2024 08:48-0500 Body temperature 98.1 [degF] Silas Robbins MD Work Phone: [facility] 11-05-2024 08:48-0500 Body weight 71.89 kg Silas Robbins MD Work Phone: [facility] 11-05-2024 08:48-0500 Diastolic blood pressure 78 mm[Hg] Silas Robbins MD Work Phone: [facility] 11-05-2024 08:48-0500 Heart rate 69 /min Silas Robbins MD Work Phone: [facility] 11-05-2024 08:48-0500 SaO2% (BldA) [Mass fraction] 95 % Silas Robbins MD Work Phone: [facility] 11-05-2024 08:48-0500 Systolic blood pressure 138 mm[Hg] Silas Robbins MD Work Phone: [facility] 11-03-2024 07:46-0500 Body mass index (BMI) [Ratio] 27.4 kg/m2 Dr. Fabricio Lemos MD Work Phone: [facility] 11-03-2024 07:46-0500 Body temperature 97.3 [degF] Dr. Fabricio Lemos MD Work Phone: [facility] 11-03-2024 07:46-0500 Body weight 72.[address] Fabricio Lemos MD Work Phone: [facility] 11-03-2024 07:46-0500 Diastolic blood pressure 72 mm[Hg] Dr. Fabricio Lemos MD Work Phone: [facility] 11-03-2024 07:46-0500 Heart rate 69 /min Dr. Fabricio Lemos MD Work Phone: 7(871)667-308383 [place] [address] 11-03-2024 07:46-0500 Respiratory rate 18 /min Dr. Fabricio Lemos MD Work Phone: 1(498)525-097993 [place] [address] 11-03-2024 07:46-0500 SaO2% (BldA) [Mass fraction] 94 % Dr. Fabricio Lemos MD Work Phone: 1(608)002-041183 [place] [address] 11-03-2024 07:46-0500 Systolic blood pressure 118 mm[Hg] Dr. Fabricio Lemos MD Work Phone: 8(053)898-274193 [place] [address] 10-17-2024 12:52-0500 Body height 160 cm Girish Lemos MD Work Phone: 4(245)841-385791 [place] [address] 10-17-2024 12:52-0500 Body mass index (BMI) [Ratio] 28.7 kg/m2 Girish Lemos MD Work Phone: 7(760)569-724391 [place] [address] 10-17-2024 12:52-0500 Body temperature 97.81 [degF] Girish Lemos MD Work Phone: [facility] 10-17-2024 12:52-0500 Body weight 73.48 kg Girish Lemos MD Work Phone: 9(920)360-342091 [place] [address] 10-17-2024 12:52-0500 Diastolic blood pressure 70 mm[Hg] Girish Lemos MD Work Phone: 7(783)379-880691 [place] [address] 10-17-2024 12:52-0500 Heart rate 67 /min Girish Lemos MD Work Phone: [facility] 10-17-2024 12:52-0500 Respiratory rate 12 /min Girish Lemos MD Work Phone: [facility] 10-17-2024 12:52-0500 SaO2% (BldA) [Mass fraction] 94 % Girihs Lemos MD Work Phone: [facility] 10-17-2024 12:52-0500 Systolic blood pressure 118 mm[Hg] Girish Lemos MD Work Phone: [facility] 10-16-2024 08:22-0500 Body mass index (BMI) [Ratio] 28.87 kg/m2 Oleg Fields [employer] EV[employer]UATION [employer]GER.[employer] Work Phone: [facility] 10-16-2024 08:22-0500 Body weight 73.94 kg Oleg Fields [employer] OPERATION EVALUATION MANAGER.[employer] Work Phone: [facility] 10-16-2024 08:22-0500 Diastolic blood pressure 80 mm[Hg] Oleg Fields [employer] OPERATION EVALUATION MANAGER.[employer] Work Phone: [facility] 10-16-2024 08:22-0500 Heart rate 74 /min Oleg Fields [employer] OPERATION EVALUATION MANAGER.[employer] Work Phone: [facility] 10-16-2024 08:22-0500 Respiratory rate 14 /min Oleg Fields [employer] OPERATION EVALUATION MANAGER.[employer] Work Phone: [facility] 10-16-2024 08:22-0500 Systolic blood pressure 144 mm[Hg] Oleg Fields [employer] OPERATION EVALUATION MANAGER.[employer] Work Phone: [facility] 09-19-2024 09:38-0500 Body mass index (BMI) [Ratio] 29.26 kg/m2 Girish Lemos MD Work Phone: [facility] 09-19-2024 09:38-0500 Body weight 74.93 kg Girish Lemos MD Work Phone: [facility] 09-19-2024 09:38-0500 Diastolic blood pressure 68 mm[Hg] Girish Lemos MD Work Phone: [facility] 09-19-2024 09:38-0500 Heart rate 73 /min Girish Lemos MD Work Phone: [facility] 09-19-2024 09:38-0500 Respiratory rate 18 /min Girish Lemos MD Work Phone: [facility] 09-19-2024 09:38-0500 SaO2% (BldA) [Mass fraction] 98 % Girish Lemos MD Work Phone: [facility] 09-19-2024 09:38-0500 Systolic blood pressure 124 mm[Hg] Girish Lemos MD Work Phone: [facility] 08-19-2024 10:40-0500 Diastolic blood pressure 82 mm[Hg] Jeanette Podlogar [employer]PERATION EVALUATION MANAGER.[employer] Work Phone: [facility] Comment on above: [facility] 08-19-2024 10:40-0500 Systolic blood pressure 164 mm[Hg] Jeanette Podlogar [employer] OPERATION EVALUATION MANAGER.[employer] Work Phone: [facility] Comment on above: [facility] 08-19-2024 10:16-0500 Body mass index (BMI) [Ratio] 30.15 kg/m2 Jeanette Podlogar [employer] OPERATION EVALUATION MANAGER.[employer] Work Phone: [facility] 08-19-2024 10:16-0500 Body weight 77.2 kg Jeanette Podlogar [employer] OPERATION EVALUATION MANAGER.[employer] Work Phone: [facility] 08-19-2024 10:16-0500 Heart rate 58 /min Jeanette Podlogar [employer] OPERATION EVALUATION MANAGER.[employer] Work Phone: [facility] 08-19-2024 10:16-0500 Respiratory rate 18 /min Jeanette Podlogar [employer] OPERATION EVALUATION MANAGER.[employer] Work Phone: [facility] 08-19-2024 10:16-0500 SaO2% (BldA) [Mass fraction] 98 % Jeanette Podlogar [employer] OPERATION EVALUATION MANAGER.[employer] Work Phone: [facility] 07-15-2024 10:22-0400 Diastolic blood pressure 80 mm[Hg] Jeanette Podlogar [employer] OPERATION EVALUATION MANAGER.[employer] Work Phone: [facility] Comment on above: [facility] 07-15-2024 10:22-0400 Heart rate 50 /min Jeanette Podlogar [employer] OPERATION EVALUATION MANAGER.[employer] Work Phone: [facility] 07-15-2024 10:22-0400 Systolic blood pressure 157 mm[Hg] Jeanette Podlogar [employer] OPERATION EVALUATION MANAGER.[employer]ER Work Phone: [facility] Comment on above: [facility] 07-15-2024 08:53-0400 Body mass index (BMI) [Ratio] 31.01 kg/m2 Jeanette Podlogar [employer] OPERATION EVALUATION MANAGER.[employer] Work Phone: [facility] 07-15-2024 08:53-0400 Body weight 79.4 kg Jeanette Podlogar [employer] OPERATION EVALUATION MANAGER.[employer] Work Phone: [facility] 07-15-2024 08:53-0400 Respiratory rate 18 /min Jeanette Podlogar [employer] OPERATION EVALUATION MANAGER.[employer]ER Work Phone: [facility] 07-15-2024 08:53-0400 SaO2% (BldA) [Mass fraction] 97 % Jeanette Podlogar [employer] OPERATION EVALUATION MANAGER.[employer] Work Phone: [facility] 01-08-2024 09:14-0400 Body mass index (BMI) [Ratio] 31.74 kg/m2 Jeanette Podlogar [employer] OPERATION EVALUATION MANAGER.[employer]ER Work Phone: [facility] 01-08-2024 09:14-0400 Body weight 81.28 kg Jeanette Podlogar [employer] OPERATION EVALUATION MANAGER.[employer]ER Work Phone: [facility] 01-08-2024 09:14-0400 Diastolic blood pressure 84 mm[Hg] Jeanette Podlogar [employer] OPERATION EVALUATION MANAGER.[employer] Work Phone: [facility] 01-08-2024 09:14-0400 Heart rate 55 /min Jeanette Podlogar [employer] OPERATION EVALUATION MANAGER.[employer]ER Work Phone: [facility] 01-08-2024 09:14-0400 Respiratory rate 18 /min Jeanette Podlogar [employer] OPERATION EVALUATION MANAGER.[employer]ER Work Phone: [facility] 01-08-2024 09:14-0400 SaO2% (BldA) [Mass fraction] 96 % Jeanette Podlogar [employer] OPERATION EVALUATION MANAGER.[employer]ER Work Phone: [facility] 01-08-2024 09:14-0400 Systolic blood pressure 136 mm[Hg] Jeanette Podlogar [employer] OPERATION EVALUATION MANAGER.[employer] Work Phone: [facility] 06-22-2023 08:55-0400 Body weight 80.47 kg Jeanette Podlogar [employer] OPERATION EVALUATION MANAGER.[employer] Work Phone: [facility] 06-22-2023 08:55-0400 Diastolic blood pressure 80 mm[Hg] Jeanette Podlogar [employer]CH OPERATION EVALUATION MANAGER.[employer]ER Work Phone: [facility] 06-22-2023 08:55-0400 Heart rate 60 /min Jeanette Podlogar [employer]CH OPERATION EVALUATION MANAGER.[employer]ER Work Phone: [facility] 06-22-2023 08:55-0400 Respiratory rate 16 /min Jeanette Podlogar BR[employer]CH OPERATION EVALUATION MANAGER.[employer]ISHER Work Phone: [facility] 06-22-2023 08:55-0400 SaO2% (BldA) [Mass fraction] 94 % Jeanette Podlogar [employer] OPERATION EVALUATION MANAGER.[employer]ER Work Phone: [facility] 06-22-2023 08:55-0400 Systolic blood pressure 132 mm[Hg] Jeanette Podlogar [employer] OPERATION EVALUATION MANAGER.[employer]ER Work Phone: [facility] 05-03-2023 08:18-0400 Body height 160.[address] Fabricio Lemos Work Phone: [facility] 05-03-2023 08:18-0400 Body weight 80.[address] Fabricio Lemos Work Phone: [facility] 05-03-2023 08:18-0400 Heart rate 67 /min Dr. Fabricio Lemos Work Phone: [facility] 05-03-2023 08:18-0400 SaO2% (BldA) [Mass fraction] 98 % Dr. Fabricio Lemos Work Phone: [facility] 03-21-2023 09:09-0400 Body weight 83.64 kg Jeanette Podlogar [employer] OPERATION EVALUATION MANAGER.[employer]ER Work Phone: [facility] 03-21-2023 09:09-0400 Diastolic blood pressure 82 mm[Hg] Jeanette Podlogar [employer]CH OPERATION EVALUATION MANAGER.[employer] Work Phone: [facility] 03-21-2023 09:09-0400 Heart rate 58 /min Jeanette Podlogar BR[employer]CH OPERATION EVALUATION MANAGER.[employer] Work Phone: [facility] 03-21-2023 09:09-0400 Respiratory rate 16 /min Jeanette Podlogar BRANCH OPERATION EVALUATION MANAGER.[employer]ER Work Phone: [facility] 03-21-2023 09:09-0400 SaO2% (BldA) [Mass fraction] 96 % Jeanette Podlogar BR[employer]CH OPERATION EVALUATION MANAGER.[employer]ER Work Phone: [facility] 03-21-2023 09:09-0400 Systolic blood pressure 140 mm[Hg] Jeanette Podlogar BRANCH OPERATION EVALUATION MANAGER.[employer]ER Work Phone: [facility] 03-13-2023 05:49-0400 Body mass index (BMI) [Ratio] 32.2 kg/m2 Dr. Fabricio Lemos Work Phone: [facility] 03-13-2023 05:49-0400 Body temperature 98.1 [degF] Dr. Fabricio Lemos Work Phone: [facility] 03-13-2023 05:49-0400 Body weight 82.[address] Fabricio Lemos Work Phone: [facility] 03-13-2023 05:49-0400 Diastolic blood pressure 85 mm[Hg] Dr. Fabricio Lemos Work Phone: [facility] 03-13-2023 05:49-0400 Heart rate 66 /min Dr. Fabricio Lemos Work Phone: [facility] 03-13-2023 05:49-0400 Respiratory rate 18 /min Dr. Fabricio Lemos Work Phone: [facility] 03-13-2023 05:49-0400 SaO2% (BldA) [Mass fraction] 93 % Dr. Fabricio Lemos Work Phone: [facility] 03-13-2023 05:49-0400 Systolic blood pressure 160 mm[Hg] Dr. Fabricio Lemos Work Phone: [facility] 02-20-2023 08:40-0400 Body weight 83.64 kg Jeanette Podlogar [employer] OPERATION EVALUATION MANAGER.[employer] Work Phone: [facility] 02-20-2023 08:40-0400 Diastolic blood pressure 78 mm[Hg] Jeanette Podlogar BR[employer] OPERATION EVALUATION MANAGER.[employer]ER Work Phone: [facility] 02-20-2023 08:40-0400 Heart rate 48 /min Jeanette Podlogar BR[employer] OPERATION EVALUATION MANAGER.[employer]ER Work Phone: [facility] 02-20-2023 08:40-0400 Respiratory rate 18 /min Jeanette Podlogar BRANCH OPERATION EVALUATION MANAGER.[employer]ER Work Phone: [facility] 02-20-2023 08:40-0400 SaO2% (BldA) [Mass fraction] 95 % Jeanette Podlogar BR[employer]CH OPERATION EVALUATION MANAGER.[employer]ER Work Phone: [facility] 02-20-2023 08:40-0400 Systolic blood pressure 148 mm[Hg] Jeanette Podlogar BRANCH OPERATION EVALUATION MANAGER.[employer]ER Work Phone: [facility] 09-25-2022 07:58-0500 Body height 160.[address] Fabricio Lemos Work Phone: [facility] 09-25-2022 07:58-0500 Body mass index (BMI) [Ratio] 32.8 kg/m2 Dr. Fabricio Lemos Work Phone: [facility] 09-25-2022 07:58-0500 Body temperature 97.3 [degF] Dr. Fabricio Lemos Work Phone: [facility] 09-25-2022 07:58-0500 Body weight 83.[address] Fabricio Lemos Work Phone: [facility] 09-25-2022 07:58-0500 Diastolic blood pressure 79 mm[Hg] Dr. Fabricio Lemos Work Phone: [facility] 09-25-2022 07:58-0500 Heart rate 49 /min Dr. Fabricio Lemos Work Phone: [facility] 09-25-2022 07:58-0500 Respiratory rate 18 /min Dr. Fabricio Lemos Work Phone: [facility] 09-25-2022 07:58-0500 SaO2% (BldA) [Mass fraction] 94 % Dr. Fabricio Lemos Work Phone: [facility] 09-25-2022 07:58-0500 Systolic blood pressure 181 mm[Hg] Dr. Fabricio Lemos Work Phone: [facility] 09-19-2022 09:11-0500 Diastolic blood pressure 70 mm[Hg] Girish Lemos MD Work Phone: [facility] 09-19-2022 09:11-0500 Heart rate 56 /min Girish Lemos MD Work Phone: [facility] 09-19-2022 09:11-0500 Respiratory rate 16 /min Girish Lemos MD Work Phone: [facility] 09-19-2022 09:11-0500 SaO2% (BldA) [Mass fraction] 96 % Girish Lemos MD Work Phone: [facility] 09-19-2022 09:11-0500 Systolic blood pressure 122 mm[Hg] Girish Lemos MD Work Phone: [facility] 09-13-2022 10:00-0500 Diastolic blood pressure 75 mm[Hg] Dr. Fabricio Lemos Work Phone: [facility] Work Phone: 09-13-2022 10:00-0500 Heart rate 58 /min Dr. Fabricio Lemos Work Phone: [facility] Work Phone: 09-13-2022 10:00-0500 Respiratory rate 12 /min Dr. Fabricio Lemos Work Phone: [facility] Work Phone: 09-13-2022 10:00-0500 SaO2% (BldA) [Mass fraction] 94 % Dr. Fabricio Lemos Work Phone: [facility] Work Phone: 09-13-2022 10:00-0500 Systolic blood pressure 118 mm[Hg] Dr. Fabricio Lemos Work Phone: [facility] Work Phone: 09-13-2022 08:00-0500 Body temperature 97.9 [degF] Dr. Fabricio Lemos Work Phone: [facility] Work Phone: 09-13-2022 06:47-0500 Body height 160.[address] Fabricio Lemos Work Phone: [facility] Work Phone: 09-13-2022 06:47-0500 Body mass index (BMI) [Ratio] 32.2 kg/m2 Dr. Fabricio Lemos Work Phone: [facility] Work Phone: 09-13-2022 06:47-0500 Body weight 82.[address] Fabricio Lemos Work Phone: [facility] Work Phone: 09-04-2022 12:45-0500 Body mass index (BMI) [Ratio] 32.5 kg/m2 Dr. Fabricio Lemos Work Phone: [facility] Work Phone: 09-04-2022 12:45-0500 Body temperature 100.4 [degF] Dr. Fabricio Lemos Work Phone: [facility] Work Phone: 09-04-2022 12:45-0500 Body weight 86.[address] Fabricio Lemos Work Phone: [facility] Work Phone: 09-04-2022 12:45-0500 Diastolic blood pressure 81 mm[Hg] Dr. Fabriico Lemos Work Phone: [facility] Work Phone: 09-04-2022 12:45-0500 Heart rate 75 /min Dr. Fabricio Lemos Work Phone: [facility] Work Phone: 09-04-2022 12:45-0500 Respiratory rate 18 /min Dr. Fabricio Lemos Work Phone: [facility] Work Phone: 09-04-2022 12:45-0500 SaO2% (BldA) [Mass fraction] 94 % Dr. Fabricio Lemos Work Phone: [facility] Work Phone: 09-04-2022 12:45-0500 Systolic blood pressure 130 mm[Hg] Dr. Fabricio Lemos Work Phone: [facility] Work Phone: 08-22-2022 09:44-0500 Body height 160 cm Jeanette Podlogar BRANCH OPERATION EVALUATION MANAGER.DIE POLISHER Work Phone: [facility] 08-22-2022 09:44-0500 Body weight 82.56 kg Jeanette Podlogar BRANCH OPERATION EVALUATION MANAGER.DIE POLISHER Work Phone: [facility] 08-22-2022 09:44-0500 Diastolic blood pressure 78 mm[Hg] Jeanette Podlogar BRANCH OPERATION EVALUATION MANAGER.DIE POLISHER Work Phone: [facility] 08-22-2022 09:44-0500 Heart rate 58 /min Jeanette Podlogar BRANCH OPERATION EVALUATION MANAGER.DIE POLISHER Work Phone: [facility] 08-22-2022 09:44-0500 SaO2% (BldA) [Mass fraction] 95 % Jeanette Podlogar BRANCH OPERATION EVALUATION MANAGER.DIE POLISHER Work Phone: [facility] 08-22-2022 09:44-0500 Systolic blood pressure 138 mm[Hg] Jeanette Berrios BRANCH OPERATION EVALUATION MANAGER.DIE POLISHER Work Phone: [facility] 07-24-2022 17:34-0500 Body temperature 97.7 [degF] [place] Kira BRANCH OPERATION EVALUATION MANAGER.DIE POLISHER Work Phone: [facility] 07-24-2022 17:34-0500 Body weight 85.28 kg Jamaica Kira BRANCH OPERATION EVALUATION MANAGER.DIE POLISHER Work Phone: [facility] 07-24-2022 17:34-0500 Diastolic blood pressure 68 mm[Hg] [place] Kira BRANCH OPERATION EVALUATION MANAGER.DIE POLISHER Work Phone: [facility] 07-24-2022 17:34-0500 Heart rate 70 /min Jamaica Kira BRANCH OPERATION EVALUATION MANAGER.DIE POLISHER Work Phone: [facility] 07-24-2022 17:34-0500 Respiratory rate 16 /min [place] Kira BRANCH OPERATION EVALUATION MANAGER.DIE POLISHER Work Phone: [facility] 07-24-2022 17:34-0500 SaO2% (BldA) [Mass fraction] 97 % [place] Kira BRANCH OPERATION EVALUATION MANAGER.DIE POLISHER Work Phone: [facility] 07-24-2022 17:34-0500 Systolic blood pressure 110 mm[Hg] [place] Kira BRANCH OPERATION EVALUATION MANAGER.DIE POLISHER Work Phone: [facility] 03-23-2022 10:50-0400 Body temperature 98.71 [degF] Girish Lemos MD Work Phone: [facility] 03-23-2022 10:50-0400 Body weight 83.83 kg Girish Lemos MD Work Phone: [facility] 03-23-2022 10:50-0400 Diastolic blood pressure 84 mm[Hg] Girish Lemos MD Work Phone: [facility] 03-23-2022 10:50-0400 Heart rate 69 /min Girish Lemos MD Work Phone: [facility] 03-23-2022 10:50-0400 Respiratory rate 18 /min Girish Lemos MD Work Phone: [facility] 03-23-2022 10:50-0400 SaO2% (BldA) [Mass fraction] 95 % Girish Lemos MD Work Phone: [facility] 03-23-2022 10:50-0400 Systolic blood pressure 122 mm[Hg] Girish Lemos MD Work Phone: [facility] 01-05-2022 13:12-0400 Body height 162.[address] Fabricio Lemos Work Phone: [facility] Work Phone: 01-05-2022 13:12-0400 Body mass index (BMI) [Ratio] 33 kg/m2 Dr. Fabricio Lemos Work Phone: [facility] Work Phone: 01-05-2022 13:12-0400 Body temperature 97.2 [degF] Dr. Fabricio Lemos Work Phone: [facility] Work Phone: 01-05-2022 13:12-0400 Body weight 87.[address] Fabricio Lemos Work Phone: [facility] Work Phone: 01-05-2022 13:12-0400 Diastolic blood pressure 82 mm[Hg] Dr. Fabricio Lemos Work Phone: [facility] Work Phone: 01-05-2022 13:12-0400 Heart rate 64 /min Dr. Fabricio eLmos Work Phone: [facility] Work Phone: 01-05-2022 13:12-0400 Respiratory rate 16 /min Dr. Fabricio Lemos Work Phone: [facility] Work Phone: 01-05-2022 13:12-0400 SaO2% (BldA) [Mass fraction] 96 % Dr. Fabricio Lemos Work Phone: [facility] Work Phone: 01-05-2022 13:12-0400 Systolic blood pressure 131 mm[Hg] Dr. Fabricio Lemos Work Phone: [facility] Work Phone: 11-17-2021 12:35-0500 Diastolic blood pressure 78 mm[Hg] Dr. Fabricio Lemos Work Phone: [facility] Work Phone: 11-17-2021 12:35-0500 Heart rate 73 /min Dr. Fabricio Lemos Work Phone: [facility] Work Phone: 11-17-2021 12:35-0500 Respiratory rate 18 /min Dr. Fabricio Lemos Work Phone: [facility] Work Phone: 11-17-2021 12:35-0500 SaO2% (BldA) [Mass fraction] 94 % Dr. Fabricio Lemos Work Phone: [facility] Work Phone: 11-17-2021 12:35-0500 Systolic blood pressure 138 mm[Hg] Dr. Fabricio Lemos Work Phone: [facility] Work Phone: 11-17-2021 09:18-0500 Body mass index (BMI) [Ratio] 31.8 kg/m2 Dr. Fabricio Lemos Work Phone: [facility] Work Phone: 11-17-2021 09:18-0500 Body temperature 96.9 [degF] Dr. Fabricio Lemos Work Phone: [facility] Work Phone: 11-17-2021 09:18-0500 Body weight 81.[address] Fabricio Lemos Work Phone: [facility] Work Phone: 11-12-2021 19:00-0500 Diastolic blood pressure 77 mm[Hg] Dr. Fabricio Lemos Work Phone: [facility] Work Phone: 11-12-2021 19:00-0500 Heart rate 76 /min Dr. Fabricio Lemos Work Phone: [facility] Work Phone: 11-12-2021 19:00-0500 Respiratory rate 18 /min Dr. Fabricio Lemos Work Phone: [facility] Work Phone: 11-12-2021 19:00-0500 SaO2% (BldA) [Mass fraction] 93 % Dr. Fabricio Lmeos Work Phone: [facility] Work Phone: 11-12-2021 19:00-0500 Systolic blood pressure 144 mm[Hg] Dr. Fabricio Lemos Work Phone: [facility] Work Phone: 11-12-2021 16:39-0500 Body mass index (BMI) [Ratio] 32.8 kg/m2 Dr. Fabricio Lemos Work Phone: [facility] Work Phone: 11-12-2021 16:39-0500 Body temperature 99.9 [degF] Dr. Fabricio Lemos Work Phone: [facility] Work Phone: 11-12-2021 16:39-0500 Body weight 83.[address] Fabricio Lemos Work Phone: [facility] Work Phone: Encounters Encounter Date Encounter Type Care Provider Facility Start: 03-31-2025 End: 03-31-2025 Refill Girish Lemos MD Work Phone: [facility] [place] Comment on above: Refill Request Start: 03-19-2025 ambulatory Sherice Tovar ty:[facility] Start: 03-16-[address] Rubi Fernandez MD -[place] [facility] Start: 03-16-2025 End: 03-16-[address] Sherice Fernandez MD -[facility] Work Phone: Start: 03-16-2025 End: 03-16-[address] Fabricio Lemos MD Work Phone: [facility] Start: 02-24-2025 End: 02-24-[address] Fabricio Lemos MD Work Phone: [facility] Work Phone: Start: 02-24-2025 End: 02-24-[address] Sherice Fernandez MD -[place] [facility] Work Phone: Start: 02-24-2025 End: 02-24-2025 Dr. Sherice Fernandez MD -[facility] Work Phone: Start: 02-17-2025 End: 02-17-[address] Fabricio Lemos MD Work Phone: [facility] Work Phone: Start: 02-17-2025 End: 02-17-[address] Sherice Fernandez MD -Cat Scan [facility] Work Phone: Start: 02-17-2025 End: 02-17-2025 Dr. Sherice Fernandez MD -Cat Scan [facility] Work Phone: Start: 02-16-2025 End: 02-16-2025 Admission to same day surgery center Dr. Az Hoffmann MD -[facility] Start: 02-16-2025 End: 02-16-2025 Dr. Az Hoffmann MD -[facility] Start: 02-16-2025 End: 02-17-[address] Fabricio Lemos MD Work Phone: [facility] Work Phone: Start: 02-11-2025 End: 02-11-2025 Refill Girish Lemos MD Work Phone: [facility] Comment on above: Refill Request Start: 02-06-2025 Dr. Sherice hernandez MD -[facility] Start: 02-03-[address] Rubi Fernandez MD -[facility] Start: 02-03-2025 End: 02-03-[address] Sherice Fernandez MD -[facility] Work Phone: Start: 02-03-2025 End: 02-03-2025 Dr. Sherice Fernandez MD -[facility] Work Phone: Start: 02-03-2025 End: 02-03-[address] Fabricio Lemos MD Work Phone: [facility] Work Phone: Start: 01-27-2025 End: 01-27-2025 Follow-up encounter [facility] Start: 01-26-2025 End: 01-26-2025 Follow-up encounter Girish Lemos MD Work Phone: [facility] Comment on above: Results (Chest Xray) Start: 01-26-2025 End: 01-26-2025 Subsequent hospital visit by physician Xr [facility] [place] Work Phone: Radiology Comment on above: Viral URI with cough [J06.9] Start: 01-26-2025 End: 01-26-2025 Patient encounter procedure Girish Lemos MD Work Phone: [facility] Comment on above: Viral URI with cough (Primary Dx); Immunocompromised state (HCC) Start: 01-26-2025 End: 01-26-2025 ambulatory SILAS ROBBINS Facility: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 Start: 01-10-2025 Non-patient / Non-visit Dr. Jassi Borden MD -[place] Work Phone: Start: 01-10-2025 Dr. Jassi Borden MD [facility] Work Phone: Start: 01-10-2025 ambulatory Fabricio Lemos Faci lity:[facility] Start: 01-10-2025 Non-patient / Non-visit Dr. Santi valdez MD -[facility] Start: 01-10-2025 Dr. Santi Hurd MD -[facility] Start: 01-09-2025 End: 01-09-2025 Non-patient / Non-visit Dr. Man Polo MD -[place] [facility] Work Phone: Start: 01-09-2025 End: 01-10-2025 ambulatory Estrella Cabezas Facility:[facility] Start: 01-09-2025 End: 01-10-2025 Evaluation and management of inpatient Dr. Jassi Borden MD -Progressive Care Unit Work Phone: Start: 01-09-2025 End: 01-10-[address] Fabricio Lemos MD Work Phone: [facility] Work Phone: Start: 01-09-2025 End: 01-10-2025 Dr. Jassi Borden MD -Progressive Care Unit Work Phone: Start: 01-09-[address] Rubi Fernandez MD -[place] [facility] Start: 01-06-2025 End: 01-06-[address] Sherice Fernandez MD -[facility] Work Phone: Start: 01-06-2025 End: 01-06-2025 Dr. Sherice Fernandez MD -[facility] Work Phone: Start: 01-06-2025 End: 01-06-2025 ambulatory Fabricio Lemos Facility:[facility] Start: 12-29-2024 End: 12-29-2024 Patient encounter procedure Sharda Audie BLANKET WASHER-C -[facility] Work Phone: Start: 12-29-2024 End: 12-29-2024 Sharda Audie BLANKET WASHER-C -[facility] Work Phone: Start: 12-29-2024 End: 12-29-2024 ambulatory Sharda Audie BLANKET WASHER Facility:[facility] Start: 12-22-2024 End: 12-22-2024 Patient encounter procedure Rachael Mattson PA-C -[facility] Work Phone: Start: 12-22-2024 End: 12-22-2024 [facility] Start: 12-22-2024 End: 12-22-2024 ambulatory Fabricio Lemos Facility:[facility] Start: 12-16-2024 End: 12-16-2024 Patient encounter procedure Sharda Audie BLANKET WASHER-C -[facility] Work Phone: Start: 12-16-2024 End: 12-16-2024 Sharda Audie BLANKET WASHER-C -[facility] Work Phone: Start: 12-16-2024 End: 12-16-2024 ambulatory Sharda Audie BLANKET WASHER Facility:[facility] Start: 12-15-2024 End: 12-15-2024 Refill Girish Lemos MD Work Phone: [facility] Comment on above: Encounter not needed Refill Request Start: 12-12-2024 ambulatory Fabricio Lemos Faci lity:[facility] Start: 12-12-2024 Non-patient / Non-visit Dr. Stefan Sorto MD -[facility] Start: 12-12-2024 Dr. Yeimi ramos MD -[facility] Start: 12-12-2024 End: 12-12-2024 Admission to same day surgery center Dr. Yeimi Sorto MD -[facility] Start: 12-12-2024 End: 12-12-2024 Dr. Yeimi Sorto MD -[facility] Start: 12-12-2024 End: 12-12-[address] Fabricio Lemos MD Work Phone: [facility] Work Phone: Start: 12-10-2024 End: 12-10-[address] Yeimi Sorto MD -[facility] Work Phone: Start: 12-10-2024 End: 12-10-2024 Dr. Yeimi Sorto MD -[facility] Work Phone: Start: 12-10-2024 End: 12-10-2024 ambulatory Fabricio Lemos Facility[facility] Start: 12-09-[address] Rubi Fernandez MD -[place] [facility] Start: 12-09-2024 End: 12-09-2024 Patient encounter procedure Sharda Audie BLANKET WASHER- -[facility] Work Phone: Start: 12-09-2024 End: 12-09-2024 Sharda Audie BLANKET WASHER-[facility] Work Phone: Start: 12-09-2024 End: 12-09-2024 ambulatory Sharda Audie BLANKET WASHER Facility:[facility] Start: 12-03-2024 End: 12-03-[address] Fabricio Lemos MD Work Phone: [facility] Work Phone: Start: 12-03-2024 End: 12-03-[address] Sherice Fernandez MD -[facility] Work Phone: Start: 12-03-2024 End: 12-03-2024 Dr. Sherice Fernandez MD -[facility] Work Phone: Start: 12-02-2024 End: 12-02-2024 Patient encounter procedure Sharda Audie BLANKET WASHER-[facility] Work Phone: Start: 12-02-2024 End: 12-02-2024 Sharda Audie BLANKET WASHER-[facility] Work Phone: Start: 12-02-2024 End: 12-03-2024 ambulatory Carmellaadrian Jim Facility:[facility] Start: 11-24-2024 End: 11-24-[address] Sherice Fernandez MD -[facility] Work Phone: Start: 11-24-2024 End: 11-24-2024 Dr. Sherice Fernandez MD -[facility] Work Phone: Start: 11-24-2024 End: 11-24-2024 ambulatory Roxann Patricia Facility:[facility] Start: 11-23-2024 End: 11-23-2024 Dr. Alex Mercado MD -Emergency Departmen t Work Phone: Start: 11-23-2024 End: 11-23-2024 Emergency department patient visit Dr. Fabricio Lemos MD Work Phone: -Emergency Department Work Phone: Start: 11-15-2024 Non-patient / [facility] Start: 11-15-2024 Dr. Mae Horton DO -[facility] Work Phone: Start: 11-14-2024 Non-patient / Non-visit [facility]. [facility] Work Phone: Start: 11-14-2024 Dr. Mae Horton DO -[facility] Work Phone: Start: 11-13-2024 Non-patient / Non-visit Dr. Mae Horton DO -[facility] Work Phone: Start: 11-13-2024 Dr. Mae Horton DO [facility] Work Phone: Start: 11-12-2024 Non-patient / Non-visit Dr. Mae Horton DO [facility] Work Phone: Start: 11-12-2024 End: 11-15-2024 ambulatory Mae Horton Facility:[facility] Start: 11-12-2024 End: 11-15-2024 Evaluation and management of inpatient Dr. Mae Horton DO -Progressive Care Unit Work Phone: Start: 11-12-2024 End: 11-15-2024 Dr. Mae Horton DO Progressive Care Unit Work Phone: Start: 11-12-2024 End: 11-12-2024 ambulatory GIRISH LEMOS Facility:[facility] Start: 11-12-2024 End: 11-12-2024 Patient encounter procedure Girish Lemos MD Work Phone: [facility] Comment on above: Generalized abdomina l pain (Primary Dx); Weight loss; Liver masses; Lung mass; Abnormal MRI, liver; Nausea and vomiting, unspecified vomiting type; Diarrhea, unspecified type; Dehydration; BRBPR (bright red blood per rectum) Start: 11-11-2024 End: 11-11-2024 Patient encounter procedure Roxann Gomez BLANKET WASHER-C -[facility] Start: 11-11-2024 End: 11-11-2024 Roxann Gomez BLANKET WASHER-C -[facility] Start: 11-11-2024 End: 11-11-2024 ambulatory Roxann Gomez NP Facility:[facility] Start: 11-05-2024 End: 11-13-2024 Telephone encounter iSlas Robbins MD Work Phone: Hematology/Oncology Start: 11-05-2024 End: 11-05-2024 ambulatory Silas Robbins MD Work Phone: Hematology/Oncology Comment on above: Liver masses Start: 11-05-2024 End: 11-05-2024 Patient encounter procedure Silas Robbins MD Work Phone: Hematology/Oncology Start: 11-04-2024 End: 11-12-2024 Telephone encounter Girish Lemos MD Work Phone: [facility] [place] Comment on above: Return Call Request Start: 11-03-2024 End: 11-03-2024 Telephone encounter Silas Robbins MD Work Phone: Hematology/Oncology Start: 11-03-2024 End: 11-03-2024 Patient encounter procedure Roxann Gomez BLANKET WASHER-C -[facility] Work Phone: Start: 11-03-2024 End: 11-03-2024 Roxann Gomez BLANKET WASHER-C -[facility] Work Phone: Start: 11-03-2024 End: 11-03-2024 ambulatory Roxann Gomez BLANKET WASHER Facility:[facility] Start: 10-31-2024 End: 11-03-2024 Telephone encounter Girish Lemos MD Work Phone: [facility] [place] Comment on above: requesting disk Start: 10-30-2024 End: 12-30-2024 Follow-up encounter Girish Lemos MD Work Phone: [facility] [place] Comment on above: Results Start: 10-30-2024 End: 10-30-2024 Telephone encounter Girish Lemos MD Work Phone: [facility] [place] Comment on above: Patient Request Start: 10-30-2024 End: 10-30-2024 ambulatory GIRISH LEMOS Facility:[facility] Start: 10-30-2024 End: 10-30-2024 Subsequent hospital visit by physician [facility] Work Phone: Cat Scan Comment on above: Liver masses [R16.0] Start: 10-22-2024 End: 10-22-2024 Telephone encounter Girish Lemos MD Work Phone: [facility] [place] Comment on above: Orders Start: 10-20-2024 End: 10-31-2024 Telephone encounter Girish Lemos MD Work Phone: [facility] [place] Comment on above: Results New Patient Start: 10-17-2024 End: 10-20-2024 Telephone encounter Lennox Bellamy REWEAVER Navigation Start: 10-17-2024 End: 10-17-2024 ambulatory GIRISH LEMOS Facility:[facility] Start: 10-17-2024 End: 10-17-2024 Patient encounter procedure Girish Lemos MD Work Phone: [facility] [place] Comment on above: Liver masses (Primar y Dx); RUQ abdominal pain; Nausea and vomiting, unspecified vomiting type; Diarrhea, unspecified type Start: 10-16-2024 End: 10-20-2024 Telephone encounter Oleg Fields APRN.CNP Work Phone: [facility] [place] Comment on above: Results Start: 10-16-2024 End: 10-16-2024 ambulatory GIRISH LEMOS Facility:[facility] Start: 10-16-2024 End: 10-16-2024 Subsequent hospital visit by physician [facility] Work Phone: Cat Scan Comment on above: Generalized abdomina l pain [R10.84] Start: 10-16-2024 End: 10-16-2024 Office outpatient visit 15 minutes Oleg Fields APRN.DIE POLISHER Work Phone: [facility] [place] Comment on above: Generalized abdomina l pain (Primary Dx); Diarrhea, unspecified type; Nausea Start: 10-16-2024 End: 10-16-2024 ambulatory GIRISH LEMOS Facility:[facility] Start: 10-15-2024 End: 10-15-2024 ambulatory Girish Lemos MD Work Phone: [facility] [place] Comment on above: Abdominal Pain Start: 09-19-2024 End: 09-19-2024 Patient encounter procedure Girish Lemos MD Work Phone: [facility] [place] Comment on above: Primary hypertension (Primary Dx) Start: 09-19-2024 End: 09-19-2024 ambulatory GIRISH LEMOS Facility:[facility] Start: 08-27-2024 End: 08-27-2024 Telephone encounter Girish Lemos MD Work Phone: [facility] [place] Comment on above: Patient Update Start: 08-19-2024 End: 08-19-2024 Patient encounter procedure Jeanette Podlogar BRANCH OPERATION EVALUATION MANAGER.DIE POLISHER Work Phone: [facility] [place] Comment on above: Essential hypertensi on Start: 08-19-2024 End: 08-19-2024 ambulatory JEANETTE PODLOGAR Facility:[facility] Start: 07-15-2024 End: 07-15-2024 ambulatory JEANETTE PODLOGAR Facility:[facility] Start: 07-15-2024 End: 07-15-2024 Patient encounter procedure Jeanette Podlogar BRANCH OPERATION EVALUATION MANAGER.DIE POLISHER Work Phone: [facility] [place] Comment on above: Essential hypertensi on (Primary Dx); Non-seasonal allergic rhinitis, unspecified trigger; Encounter for immunization; Hyperlipidemia, unspecified hyperlipidemia type; Prediabetes; Stage 3 chronic kidney disease, unspecified whether stage 3a or 3b CKD (HCC); Pulmonary hypertension (HCC); First degree AV block; Acquired hypothyroidism Start: 07-15-2024 End: 07-15-2024 ambulatory JEANETTE PODLOGAR Facility:[facility] Start: 07-11-2024 End: 07-11-2024 Refill Girish Lemos MD Work Phone: [facility] [place] Comment on above: Refill Request Start: 06-25-2024 End: 06-30-2024 ambulatory Girish Lemos MD Work Phone: [facility] [place] Start: 06-16-2024 End: 06-16-2024 ambulatory Roxann Gomez NP Facility:[facility] Start: 06-13-2024 End: 06-13-2024 ambulatory XUAN GARCIA [facility] Start: 06-02-2024 End: 06-02-2024 ambulatory Az Hoffmann Facility:[facility] Start: 04-28-2024 Refill Girish Lemos MD Work Phone: [facility] Comment on above: Refill Request Start: 04-08-2024 End: 04-08-2024 ambulatory Roxann Gomez BLANKET WASHER Facility:[facility] Start: 04-01-2024 ambulatory Matthew Garza Fa cility:[facility] Start: 04-01-2024 End: 04-01-2024 ambulatory Roxann Gomez BLANKET WASHER Facility:[facility] Start: 03-06-2024 End: 03-06-2024 ambulatory XUAN GARCIA [facility] Start: 01-21-2024 Telephone encounter Jeanette kirkland APRN.DIE POLISHER Work Phone: [facility] Comment on above: Results Start: 01-21-2024 End: 01-21-2024 ambulatory [facility] Work Phone: Start: 01-21-2024 End: 01-21-2024 Patient encounter procedure [facility] Scan, [facility] Work Phone: Start: 01-08-2024 End: 01-08-2024 Patient encounter procedure Jeanette Berrios APRN.DIE POLISHER Work Phone: [facility] Comment on above: Essential hypertensi on (Primary Dx); Non-seasonal allergic rhinitis, unspecified trigger; Acquired hypothyroidism; Hyperlipidemia, unspecified hyperlipidemia type; Stage 3 chronic kidney disease, unspecified whether stage 3a or 3b CKD (HCC); Pulmonary hypertension (HCC); Muscle cramps Start: 10-23-2023 Refill Girish Lemos MD Work Phone: [facility] Comment on above: Refill Request Start: 07-25-2023 ambulatory Girish Lemos MD Work Phone: [facility] [place] Start: 06-22-2023 End: 06-22-2023 Patient encounter procedure Jeanette Berrios APRN.DIE POLISHER Work Phone: [facility] Comment on above: Essential hypertensi on (Primary Dx); Encounter for immunization; Prediabetes; Acquired hypothyroidism; Stage 3 chronic kidney disease, unspecified whether stage 3a or 3b CKD (HCC); First degree AV block Start: 06-21-2023 End: 06-21-2023 [facility] Start: 05-07-2023 Telephone encounter Fabricio Lemos MD Work Phone: [facility] Comment on above: Consult Start: 05-07-2023 Non-patient / Non-visit Dr. Johnny Lemos Work Phone: [facility] Start: 05-03-2023 End: 05-03-[address] Fabricio Lemos Work Phone: [facility] Work Phone: Start: 05-03-2023 End: 05-03-2023 Patient encounter procedure Dr. Fabricio Lemos [facility] Phone: [facility] Work Phone: Start: 05-02-2023 Non-patient / Non-visit Dr. Johnny Lemos Work Phone: [facility] Start: 05-01-2023 End: 05-01-[address] Fabricio Lemos [facility] Phone[facility] Work Phone: Start: 04-13-2023 Refill Girish Lemos MD Work Phone: [facility] Comment on above: Refill Request Start: 03-21-2023 End: 03-21-2023 Patient encounter procedure Jeanette Berrios APRN.DIE POLISHER Work Phone: [facility] Comment on above: Primary hypertension (Primary Dx); Bradycardia; Skin eruption Start: 03-19-2023 Telephone encounter Fabricio Lemos MD Work Phone: [facility] Comment on above: Request Outside [facility] Start: 03-13-2023 End: 03-13-[address] Fabricio Lem[facility] Work Phone: Start: 02-21-2023 Telephone encounter Jeanette kirkland APRN.DIE POLISHER Work Phone: [facility] Comment on above: Results Start: 02-20-2023 End: 02-20-2023 Patient encounter procedure Jeanette Berrios APRN.DIE POLISHER Work Phone: [facility] Comment on above: Essential hypertensi on (Primary Dx); Prediabetes; Acquired hypothyroidism; Hyperlipidemia, unspecified hyperlipidemia type; Bradycardia; First degree AV block; Stage 3 chronic kidney disease, unspecified whether stage 3a or 3b CKD ([facility]) Start: 01-24-2023 End: 01-24-2023 Patient encounter procedure Talat Martinjuany Work Phone: Podiatry Comment on above: Hammertoe of left fo ot (Primary Dx); Pain in toe of left foot; Other acute pulmonary embolism, unspecified whether acute cor pulmonale present ([facility]) Start: 01-24-2023 End: 01-24-2023 Subsequent hospital visit by physician Xr [facility] Work Phone: Radiology Comment on above: Pain [R52] Start: 01-18-2023 End: 01-18-[address] Fabricio Lemos Work Phone: [facility] Work Phone: Start: 01-18-2023 End: 01-18-[address] Fabricio Lemos Work Phone: [facility]-Cat Scan, [facility] Start: 09-25-2022 End: 09-25-[address] Fabricio Lemos Work Phone: [facility]-Pulmonary Medicine [facility] Start: 09-22-2022 Telephone encounter Jeanette kirkland APRN.DIE POLISHER Work Phone: [facility] Comment on above: Results Start: 09-20-2022 End: 09-20-2022 Subsequent hospital visit by [facility] Work Phone: Rad[facility] Comment on above: Screening for osteop orosis [Z13.820] Start: 09-19-2022 End: 09-19-2022 Patient encounter procedure Girish Lemos MD Work Phone: [facility] Comment on above: Skin tag (Primary Dx ); S/P cryotherapy of skin lesion Start: 09-13-2022 End: 09-13-2022 Emergency department patient visit Dr. Fabricio Lemos Work Phone: [facility]-Emergency Department Start: 09-08-2022 Telephone encounter Fabricio Lemos MD Work Phone: [facility] Comment on above: Medication Request Start: 09-04-2022 End: 09-04-[address] Fabricio Lemos Work Phone: [facility] Medicine [facility] Start: 08-23-2022 Telephone encounter Jeanette kirkland APRN.DIE POLISHER Work Phone: [facility] Comment on above: Results Start: 08-22-2022 End: 08-22-2022 Patient encounter procedure Jeanette Berrios APRN.DIE POLISHER Work Phone: [facility] Comment on above: Essential hypertensi on (Primary Dx); Encounter for immunization; Prediabetes; Hyperlipidemia, unspecified hyperlipidemia type; Acquired hypothyroidism; Ringworm of body; Screening for osteoporosis; Gastroesophageal reflux disease without esophagitis; Dyspareunia in female; Abnormal vaginal bleeding in postmenopausal patient Start: 08-17-2022 ambulatory Girish Lemos MD Work Phone: Internal Medicine [facility] Start: 08-04-2022 Refill Girish Lemos MD Work Phone: [facility] Comment on above: Refill Request Start: 07-26-2022 Telephone encounter Rosie Mcintosh APRN.DIE POLISHER Work Phone: [facility] Comment on above: Results Start: 07-24-2022 End: 07-24-2022 Patient encounter procedure Jamaica Malone APRN.DIE POLISHER Work Phone: [facility] Comment on above: Gross hematuria ([place] Dx); Acute vaginitis; Vulvar irritation Start: 07-24-2022 ambulatory Girish Lemos MD Work Phone: [facility] Comment on above: urinary symptoms Start: 03-23-2022 ambulatory Girish Lemos MD Work Phone: [facility] Comment on above: Cough Start: 03-23-2022 End: 03-23-2022 Patient encounter procedure Girish Lemos MD Work Phone: [facility] Comment on above: Suspected COVID-19 v irus infection (Primary Dx); Non-seasonal allergic rhinitis, unspecified trigger Start: 02-22-2022 Refill Girish Lemos MD Work Phone: [facility] Comment on above: Refill Request Start: 01-18-2022 End: 01-18-[address] Fabricio Lemos Work Phone: [facility] Start: 01-05-2022 End: 01-05-[address] Fabricio Lemos [facility] Start: 11-25-2021 End: 11-25-2021 Subsequent hospital visit by physician [facility] Work Phone: Radiology Comment on above: Pneumonia due to inf ectious organism, unspecified laterality, unspecified part of lung [J18.9] Start: 11-17-2021 End: 11-17-2021 Emergency department patient visit Dr. Fabricio Lemos Work Phone: [facility]-Emergency Department Start: 11-15-2021 End: 11-15-2021 Subsequent hospital visit by physician [facility] Work Phone: Radiology Comment on above: Fever, unspecified f ever cause [R50.9] Start: 11-12-2021 End: 11-12-2021 Emergency department patient visit Dr. Fabricio Lemos Work Phone: [facility]-Emergency Department Start: 10-06-2021 End: 10-06-[address] Fabricio Lemos Work Phone: [facility]Sleep Lab Start: 09-08-2020 End: 09-08-2020 Patient encounter procedure [facility] Start: 09-06-2020 End: 09-06-2020 Patient encounter procedure [facility] Start: 09-01-2020 End: 09-01-2020 Patient encounter procedure [facility] Start: 08-25-2020 End: 08-25-2020 Patient encounter procedure [facility] Start: 08-18-2020 End: 08-18-2020 Patient encounter procedure [facility] Procedures Date Procedure Procedure Detail Performing Clinician Start: 03-16-[address] Fabricio Lemos MD Work Phone: Start: 03-16-2025 Serum inorganic phos phate measurement Dr. Fabricio Lemos MD Work Phone: Start: 02-24-2025 Blood count smear mc rscp w/mnl difrntl wbc count Dr. Fabricio Lemos MD Work Phone: Start: 02-24-[address] Fabricio Lemos MD Work Phone: Start: 02-24-2025 Mean corpuscular hem oglobin concentration determination Dr. Fabricio Lemos MD Work Phone: Start: 02-24-2025 Nucleated red blood cell count procedure Dr. Fabricio Lemos MD Work Phone: Start: 02-24-2025 Platelet mean volume determination Dr. Fabricio Lemos MD Work Phone: Start: 02-24-2025 Serum inorganic phos phate measurement Dr. Fabricio Lemos MD Work Phone: Start: 02-17-2025 CT of thorax and abd omen with contrast Dr. Fabricio Lemos MD Work Phone: Start: 02-16-[address] Fabricio Lemos MD Work Phone: Start: 02-16-2025 Injection of spinal epidural space Dr. Fabricio Lemos MD Work Phone: Start: 02-16-2025 X-ray of lumbar spin e, two or three views Dr. Fabricio Lemos MD Work Phone: Start: 02-03-2025 Blood count smear rscp w/mnl difrntl wbc count Dr. Fabricio [...] Work Phone: Start: 01-10-2025 Blood count smear rscp w/mnl difrntl wbc count Dr. Fabricio [...] Nucleated red blood cell count procedure Dr. Fabrciio Lemos MD Work Phone: Start: 11-23-2024 Platelet [...] abdomen & pelvis w/contrast material Oleg Fields BRANCH OPERATION EVALUATION MANAGER.DIE POLISHER Work Phone: Start: 01-21-2024 CT of chest Start: 06-22-2023 INFLUENZA VACCINE, P RSV FREE, AGE 65+ YR, HIGH DOSE, QUADRIVALENT (FLUZONE HIGH-DOSE) Jeanette Podlogar BRANCH OPERATION EVALUATION MANAGER.DIE POLISHER Work Phone: Start: 02-20-2023 Ecg routine ecg w/le ast 12 lds i&r only [facility] Provider Start: 02-20-2023 Lipid 1996 panel - S anahi or Plasma Jeanette Podlogar BRANCH OPERATION EVALUATION MANAGER.DIE POLISHER Work Phone: Start: 01-24-2023 Radex foot complete minimum 3 views Talat Merida Work Phone: Start: 01-18-[address] Fili Lemos Work Phone: Start: 09-20-2022 Dxa bone density tripp dy 1/> sites axial skel Jeanette Podlogar BRANCH OPERATION EVALUATION MANAGER.DIE POLISHER Work Phone: Start: 09-13-2022 Plain chest X-ray Dr. Ansley Lemos Work Phone: Start: 08-22-2022 INFLUENZA SEASONAL QUADRIVALENT HIGH DOSE AGE 65+ Jeanette Podlogar BRANCH OPERATION EVALUATION MANAGER.DIE POLISHER Work Phone: Start: 07-24-2022 Urnls dip stick/tabl et rgnt auto w/o microscopy Jamaica Maloen BRANCH OPERATION EVALUATION MANAGER.DIE POLISHER Work Phone: Start: 03-23-2022 2019 CORONAVIRUS Fili Lemos MD Work Phone: Start: 01-18-[address] Fili Lemos Work Phone: Start: 11-25-2021 Radiologic exam ches t 2 views Girish Lemos MD Work Phone: Start: 11-17-2021 Plain chest X-ray Dr. Ansley Lemos Work Phone: Start: 11-15-2021 Radiologic exam ches t 2 views Jeanette Berrios BRANCH OPERATION EVALUATION MANAGER.DIE POLISHER Work Phone: Start: 11-12-2021 Plain chest X-ray Dr. Ansley Lemos Work Phone: Start: 11-12-2021 SARS-CoV-2 Antigen (Rapid) Dr. Fabricio Lemos Work Phone: Start: 07-16-2019 Mammography Fabricio Lemos MD Work Phone: Start: 03-28-2018 Colonoscopy Fabricio Lemos MD Work Phone: Plan of Treatment Date Care Activity Detail Author Start: 2029 RSV Vaccine (1 - 1-dose 75+ series) RSV Vaccine (1 - 1-dose 75+ series) [facility] Start: 02-21-2028 Lipid 1996 panel - Serum or Plasma Lipid Screening [facility] Start: 02-21-2028 Lipid panel Lipid Screening [facility] Start: 02-21-2028 LIPID SCREEN LIPID SCREEN [facility] Start: 10-16-2027 Diabetes Screening Diabetes Screening [facility] Start: 08-22-2027 LIPID SCREEN LIPID SCREEN [facility] Start: 07-15-2027 Diabetes Screening Diabetes Screening [facility] Start: 01-17-2027 Diabetes Screening Diabetes Screening [facility] Start: 02-20-2026 DIABETES SCREEN DIABETES SCREEN [facility] Start: 02-20-2026 Diabetes Screening Diabetes Screening [facility] Start: 01-26-2026 Annual PCP Team Chronic Disease Visit Annual PCP Team Chronic Disease Visit [facility] Start: 01-26-2026 BP Controlled (<130/80) BP Controlled (<130/80) [facility] Start: 01-13-2026 Annual PCP Team Chronic Disease Visit Annual PCP Team Chronic Disease Visit [facility] Start: 01-13-2026 BP Controlled (<130/80) BP Controlled (<130/80) [facility] Start: 11-17-2025 LIPID SCREEN LIPID SCREEN [facility] Start: 11-12-2025 Annual PCP Team Chronic Disease Visit Annual PCP Team Chronic Disease Visit [facility] Start: 11-12-2025 BP Controlled (<130/80) BP Controlled (<130/80) [facility] Start: 10-30-2025 Screening for malignant neoplasm of lung Lung Cancer Screening [facility] Start: 10-17-2025 Annual PCP Team Chronic Disease Visit Annual PCP Team Chronic Disease Visit [facility] Start: 10-17-2025 BP Controlled (<130/80) BP Controlled (<130/80) [facility] Start: 10-16-2025 Annual PCP Team Chronic Disease Visit Annual PCP Team Chronic Disease Visit [facility] Start: 10-16-2025 Creatinine measurement Serum Creatinine [facility] Start: 09-19-2025 Annual PCP Team Chronic Disease Visit Annual PCP Team Chronic Disease Visit [facility] Start: 09-19-2025 BP Controlled (<130/80) BP Controlled (<130/80) [facility] Start: 08-22-2025 DIABETES SCREEN DIABETES SCREEN [facility] Start: 08-19-2025 Annual PCP Team Chronic Disease Visit Annual PCP Team Chronic Disease Visit [facility] Start: 07-15-2025 Annual PCP Team Chronic Disease Visit Annual PCP Team Chronic Disease Visit [facility] Start: 07-15-2025 Creatinine measurement Serum Creatinine [facility] Start: 05-18-2025 Influenza vaccination Influenza Vaccine (#1) [facility] Start: 04-14-2025 End: 04-14-2025 Patient encounter procedure 04/14/2025 9:40 AM EDT Office Visit [facility] [address] [place] [address] Girish Lemos MD [address] [place] [address] 3 month follow up [facility] Comment on above: 3 month follow up Start: 03-16-2025 [facility] Start: 03-16-2025 Vital signs measurements [facility] Start: 02-26-2025 Vital signs measurements [facility] Start: 02-25-2025 Vital signs measurements [facility] Start: 02-24-2025 [facility] Start: 02-24-2025 Vital signs measurements [facility] Start: 02-17-2025 Venous catheter care management [facility] Start: 02-16-2025 Anes dx/ther nerve block/injection prone pos [facility] Start: 02-16-2025 Njx anes&/strd w/img tfrml edrl lmbr/sac 1 lvl [facility] Start: 02-16-2025 Njx anes&/strd w/img tfrml edrl lmbr/sac ea lv [facility] Start: 02-16-2025 Injection of spinal epidural space [facility] Start: 02-16-2025 X-ray of lumbar spine, two or three views [facility] Start: 02-16-2025 Patient discharge [facility] Start: 02-05-2025 Vital signs measurements [facility] Start: 02-04-2025 Vital signs measurements [facility] Start: 02-03-2025 [facility] Start: 02-03-2025 Vital signs measurements [facility] Start: 01-20-2025 Screening for malignant neoplasm of lung Lung Cancer Screening [facility] Start: 01-17-2025 Creatinine measurement Serum Creatinine [facility] Start: 01-13-2025 End: 01-13-2025 Patient encounter procedure 01/13/2025 9:20 AM EDT Office Visit [facility] [place] [address] [place] [address] Girish Lemos MD [address] [place] [address] 6 month follow up Family [facility] Comment on above: 6 month follow up Start: 01-10-2025 Patient discharge [facility] Start: 01-09-2025 Continuous positive airway pressure ventilation treatment [facility] Start: 01-09-2025 Chemotherapy care management [facility] Start: 01-09-2025 Venous catheter care management [facility] Start: 01-09-2025 Assessment of risk of venous thromboembolism [facility] Start: 01-09-2025 Care regimes management [facility] Start: 01-09-2025 Incentive spirometry [facility] Start: 01-09-2025 Insertion of catheter into peripheral vein [facility] Start: 01-09-2025 Measuring intake and output [facility] Start: 01-09-2025 Notification of physician [facility] Start: 01-09-2025 Oxygen therapy [facility] Start: 01-09-2025 Providing care according to standard [facility] Start: 01-09-2025 Provision of activity privileges [facility] Start: 01-09-2025 Referral to service [facility] Start: 01-09-2025 End: 01-09-2025 [facility] Start: 01-09-2025 Admission procedure [facility] Start: 01-09-2025 [facility] Start: 01-09-2025 Chemotherapy care management [facility] Start: 01-09-2025 Inhalation therapy procedure [facility] Start: 01-09-2025 Patient referral to dietitian [facility] Start: 01-08-2025 Vital signs measurements [facility] Start: 01-07-2025 Annual PCP Team Chronic Disease Visit Annual PCP Team Chronic Disease Visit [facility] Start: 01-07-2025 Vital signs measurements [facility] Start: 01-06-2025 Patient referral [facility] Work Phone: Start: 01-06-2025 Vital signs measurements [facility] Start: 12-26-2024 End: 12-26-2024 Patient encounter procedure 12/26/2024 10:30 AM EDT Office Visit [facility] [address] [place] [address] Rachael Sheikh APRN.DIE POLISHER [address] [place], [place] [id number] Abnormal MRI, liver [R93.2] Gastroenterology [facility] Comment on above: Abnormal MRI, liver [R93.2] Start: 12-18-2024 Vital signs measurements [facility] Start: 12-17-2024 Vital signs measurements [facility] Start: 12-16-2024 Patient referral [facility] Work Phone: Start: 12-16-2024 Venous catheter care management [facility] Start: 12-16-2024 Vital signs measurements [facility] Start: 12-12-2024 Anesthesia access central venous circulation [facility] Start: 12-12-2024 Insj tunneled ctr vad w/subq port age 4 yr/> [facility] Start: 12-12-2024 [facility] Start: 12-12-2024 Patient discharge [facility] Start: 12-09-2024 Patient referral [facility] Work Phone: Start: 11-24-2024 Patient referral [facility] Work Phone: Start: 11-23-2024 [facility] Start: 11-15-2024 DIABETES SCREEN DIABETES SCREEN [facility] Start: 11-15-2024 Provision of activity privileges [facility] Start: 11-15-2024 Patient discharge [facility] Start: 11-14-2024 [facility] Start: 11-14-2024 Following clinical pathway protocol [facility] Start: 11-14-2024 Referral to service [facility] Start: 11-14-2024 End: 11-14-2024 Patient encounter procedure 11/14/2024 8:40 AM EST Office Visit [facility] [place] [address] [place] [address] Girish Lemos MD [address] [place] [address] 4 week follow up [facility] [place] Comment on above: 4 week follow up Start: 11-14-2024 Catheterization of vein [facility] Start: 11-14-2024 Vital signs measurements [facility] Start: 11-13-2024 Provision of activity privileges [facility] Start: 11-12-2024 Biopsy liver needle percutaneous [facility] Start: 11-12-2024 Assessment of risk of venous thromboembolism [facility] Start: 11-12-2024 Inhalation therapy procedure [facility] Start: 11-12-2024 Insertion of catheter into peripheral vein [facility] Start: 11-12-2024 Measuring intake and output [facility] Start: 11-12-2024 Patient referral to dietitian [facility] Start: 11-12-2024 Providing care according to standard [facility] Start: 11-12-2024 Provision of activity privileges [facility] Start: 11-12-2024 Referral to occupational therapist [facility] Start: 11-12-2024 Referral to service [facility] Start: 11-12-2024 End: 11-12-2024 [facility] Start: 11-12-2024 Admission procedure [facility] Start: 11-05-2024 End: 11-05-2024 ambulatory 11/05/2024 9:00 AM EST Visit (SP) Office Hematology/Oncology [address] [place] [address] [place] [address] [place] [address] 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* Hematology/Oncology Comment on above: 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* Start: 10-30-2024 End: 10-30-2024 Patient encounter procedure 10/30/2024 8:00 AM EST Appointment Cat Scan [address] [place] [address] Liver masses [R16.0] Cat Scan Comment on above: Liver masses [R16.0] Start: 10-22-2024 End: 10-22-2024 Patient encounter procedure 10/22/2024 3:40 PM EST Appointment Cat Scan [address] [place] [address] Liver masses [R16.0] Cat Scan Comment on above: Liver masses [R16.0] Start: 10-21-2024 End: 10-21-2024 Patient encounter procedure 10/21/2024 8:20 AM EST Appointment Cat Scan [address] [place] [address] Liver masses [R16.0] Cat Scan Comment on above: Liver masses [R16.0] Start: 10-20-2024 End: 10-20-2024 Patient encounter procedure 10/20/2024 11:20 AM EST Appointment Cat Scan [address] [place] [address] Liver masses [R16.0] Cat Scan Comment on above: Liver masses [R16.0] Start: 10-17-2024 End: 01-16-2025 Ptiac-3-Iolevqkeypu [Mass/volume] in Serum or Plasma [facility] Comment on above: Expected: 10/17/2024, Expires: Start: 10-17-2024 End: 10-17-2024 Patient encounter procedure 10/17/2024 1:00 PM EST Office Visit [facility] [address] [place] [address] Girish Lemos MD [address] [place] [address] follow up to discuss resutls [facility] Comment on above: follow up to discuss resutls Start: 10-16-2024 End: 01-15-2025 Amylase [Enzymatic activity/volume] in Serum or Plasma [facility] Comment on above: Expected: 10/16/2024, Expires: Start: 10-16-2024 End: 01-15-2025 Lipase [Enzymatic activity/volume] in Serum or Plasma [facility] Work Phone: Comment on above: Expected: 10/16/2024, Expires: Start: 10-16-2024 End: 10-16-2024 Patient encounter procedure 10/16/2024 8:40 AM EST Office Visit [facility] [address] [place], [place] [address] Oleg Fields APRN.DIE POLISHER [address] [place], [place] [id number] Abdominal Pain. See triage 10/15/2024. [facility] [place] Comment on above: Abdominal Pain. See triage 10/15/2024. Start: 09-19-2024 End: 09-19-2024 Patient encounter procedure 09/19/2024 9:40 AM EST Office Visit [facility] [place] [address] [place] [address] Girish Lemos MD [address] [place] [address] 1 month follow up [facility] Comment on above: 1 month follow up Start: 09-17-2024 Advance Directive Discussion Advance Directive Discussion [facility] Start: 09-17-2024 Medicare Advantage Annual Wellness Visit Medicare Advantage Annual Wellness Visit [facility] Start: 08-19-2024 End: 08-19-2024 Patient encounter procedure 08/19/2024 10:20 AM EST Office Visit [facility] [place] [address] [place] [address] Jeanette Berrios, BRANCH OPERATION EVALUATION MANAGER.DIE POLISHER [address] [place] [address] BP check [facility] Comment on above: BP check Start: 07-15-2024 End: 10-14-2024 Comprehensive metabolic 2000 panel - Serum or Plasma [facility] Work Phone: Comment on above: Expected: 07/15/2024, Expires: Start: 07-15-2024 End: 10-14-2024 Hemoglobin A1c in Blood [facility] Comment on above: Expected: 07/15/2024, Expires: Start: 07-15-2024 End: 07-15-2024 Patient encounter procedure 07/15/2024 9:00 AM EDT Office Visit Family [place] [address] [place] [address] Jeanette Berrios, BRANCH OPERATION EVALUATION MANAGER.DIE POLISHER [address] [place] [address] 6 month follow up Family [facility] Comment on above: 6 month follow up Start: 07-09-2024 End: 07-09-2024 Patient encounter procedure 07/09/2024 9:40 AM EDT Office Visit Family [facility] [address] [place] [address] PodlogJeanette gibbons APRN.DIE POLISHER [address] [place] [address] 6 month follow up Family [facility] Comment on above: 6 month follow up Start: 06-22-2024 Annual PCP Team Chronic Disease Visit Annual PCP Team Chronic Disease Visit [facility] Start: 06-22-2024 BP Controlled (<130/80) BP Controlled (<130/80) [facility] Start: 05-18-2024 Covid-19 Vaccine () Covid-19 Vaccine () [facility] Start: 05-18-2024 Influenza [facility] Start: 03-21-2024 ANNUAL PCP TEAM CHRONIC DISEASE VISIT ANNUAL PCP TEAM CHRONIC DISEASE VISIT [facility] Start: 02-21-2024 ANNUAL PCP TEAM CHRONIC DISEASE VISIT ANNUAL PCP TEAM CHRONIC DISEASE VISIT [facility] Start: 02-21-2024 Creatinine measurement Serum Creatinine [facility] Start: 02-21-2024 SERUM CREATININE SERUM CREATININE [facility] Start: 01-19-2024 Influenza vaccination LUNG CANCER SCREENING [facility] Start: 01-19-2024 Screening for malignant neoplasm of lung Lung Cancer Screening [facility] Start: 01-08-2024 End: 04-08-2024 25-hydroxyvitamin D3 [Mass/volume] in Serum or Plasma VITAMIN D 25 HYDROXY Lab Routine Muscle cramps Expected: 01/08/2024, Expires: 04/08/2024 [facility] Work Phone: Comment on above: Expected: 01/08/2024, Expires: Start: 01-08-2024 End: 04-08-2024 CBC W Auto Differential panel - Blood COMPLETE BLOOD COUNT AND DIFFERENTIAL Lab Routine Muscle cramps Expected: 01/08/2024, Expires: 04/08/2024 [facility] Comment on above: Expected: 01/08/2024, Expires: Start: 01-08-2024 End: 04-08-2024 Comprehensive metabolic 2000 panel - Serum or Plasma COMPREHENSIVE METABOLIC PANEL Lab Routine Essential hypertension Hyperlipidemia, unspecified hyperlipidemia type Expected: 01/08/2024, Expires: 04/08/2024 [facility] Comment on above: Expected: 01/08/2024, Expires: Start: 01-08-2024 End: 04-08-2024 Thyrotropin [Units/volume] in Serum or Plasma THYROID STIMULATING HORMONE Lab Routine Muscle cramps Expected: 01/08/2024, Expires: 04/08/2024 [facility] Comment on above: Expected: 01/08/2024, Expires: Start: 09-19-2023 ANNUAL PCP TEAM CHRONIC DISEASE VISIT ANNUAL PCP TEAM CHRONIC DISEASE VISIT [facility] Start: 09-19-2023 BP CONTROLLED (<130/80) BP CONTROLLED (<130/80) [facility] in Start: 09-17-2023 Advance Directive Discussion Advance Directive Discussion [facility] Start: 08-22-2023 ANNUAL PCP TEAM CHRONIC DISEASE VISIT ANNUAL PCP TEAM CHRONIC DISEASE VISIT [facility] Start: 08-22-2023 End: 10-22-2023 Comprehensive metabolic 2000 panel - Serum or Plasma COMP METABOLIC PANEL Lab Routine Essential hypertension Expected: 08/22/2023, Expires: 10/22/2023 [facility] Work Phone: Comment on above: Expected: 08/22/2023, Expires: 4 Start: 08-22-2023 End: 10-22-2023 Hemoglobin A1c in Blood HGB A1C Lab Routine Prediabetes Expected: 08/22/2023, Expires: 10/22/2023 [facility] Work Phone: Comment on above: Expected: 08/22/2023, Expires: Start: 08-22-2023 SERUM CREATININE SERUM CREATININE [facility] Start: 07-24-2023 BP CONTROLLED (<130/80) BP CONTROLLED (<130/80) [facility] in Start: 05-18-2023 Covid-19 Vaccine (3 - 2023-24 season) Covid-19 Vaccine () [facility] Start: 05-18-2023 Influenza vaccination INFLUENZA (#1) [facility] Start: 03-28-2023 Colonoscopy COLONOSCOPY [facility] Start: 03-28-2023 COLORECTAL CANCER SCREENING COLORECTAL CANCER SCREENING [facility] Start: 03-28-2023 Screening for malignant neoplasm of colon [facility] Start: 03-23-2023 ANNUAL PCP TEAM CHRONIC DISEASE VISIT ANNUAL PCP TEAM CHRONIC DISEASE VISIT [facility] Start: 02-20-2023 End: 04-22-2023 Comprehensive metabolic 2000 panel - Serum or Plasma [facility] Work Phone: Comment on above: Expected: 02/20/2023, Expires: 3 Start: 02-20-2023 End: 04-22-2023 Hemoglobin A1c in Blood [facility] Work Phone: Comment on above: Expected: 02/20/2023, Expires: 3 Start: 02-20-2023 End: 04-22-2023 Lipid 1996 panel - Serum or Plasma [facility] Work Phone: Comment on above: Expected: 02/20/2023, Expires: 3 Start: 02-20-2023 End: 04-22-2023 Magnesium [Mass/volume] in Serum or Plasma [facility] Work Phone: Comment on above: Expected: 02/20/2023, Expires: 3 Start: 02-20-2023 End: 04-22-2023 Thyrotropin [Units/volume] in Serum or Plasma [facility] Work Phone: Comment on above: Expected: 02/20/2023, Expires: 3 Start: 01-18-2023 Influenza vaccination LUNG CANCER SCREENING [facility] Start: 11-25-2022 ANNUAL PCP TEAM CHRONIC DISEASE VISIT ANNUAL PCP TEAM CHRONIC DISEASE VISIT [facility] Start: 11-25-2022 BP CONTROLLED (<130/80) BP CONTROLLED (<130/80) [facility] Start: 09-17-2022 ADVANCE DIRECTIVE DISCUSSION ADVANCE DIRECTIVE DISCUSSION [facility] Start: 09-13-2022 Enteric precautions [facility] Work Phone: Start: 08-22-2022 End: 10-22-2022 Comprehensive metabolic 2000 panel - Serum or Plasma [facility] Work Phone: Comment on above: Expected: 08/22/2022, Expires: 3 Start: 08-22-2022 End: 10-22-2022 Hemoglobin A1c in Blood [facility] Work Phone: Comment on above: Expected: 08/22/2022, Expires: 3 Start: 08-22-2022 End: 10-22-2022 Lipid 1996 panel - Serum or Plasma [facility] Work Phone: Comment on above: Expected: 08/22/2022, Expires: 3 Start: 08-22-2022 End: 10-22-2022 Thyrotropin [Units/volume] in Serum or Plasma [facility] Work Phone: Comment on above: Expected: 08/22/2022, Expires: 3 Start: 07-24-2022 End: 09-23-2022 BACTERIAL VAGINOSIS AMPLIFICATION BACTERIAL VAGINOSIS AMPLIFICATION Lab Routine Acute vaginitis Expected: 07/24/2022, Expires: 09/23/2022 [facility] Work Phone: Comment on above: Expected: 07/24/2022, Expires: 3 Start: 05-18-2022 Influenza vaccination [facility] Start: 11-17-2021 BP CONTROLLED (<130/80) BP CONTROLLED (<130/80) [facility] Start: 09-17-2021 ADVANCE DIRECTIVE DISCUSSION ADVANCE DIRECTIVE DISCUSSION [facility] Start: 04-26-2021 COVID-19 VACCINE (3 - Booster for Moderna series) COVID-19 VACCINE (3 - Booster for Moderna series) [facility] Start: 04-09-2021 PNEUMOCOCCAL: 65+ (2 - PCV) PNEUMOCOCCAL: 65+ (2 - PCV) [facility] Start: 01-19-2021 COVID-19 VACCINE (3 - Booster for Moderna series) COVID-19 VACCINE (3 - Booster for Moderna series) [facility] Start: 01-19-2021 COVID-19 VACCINE (3 - Moderna series) COVID-19 VACCINE (3 - Moderna series) [facility] Start: 07-16-2020 Mammography [facility] Start: 07-16-2020 Screening for malignant neoplasm of breast Mammogram Screening [facility] Start: 2019 BONE DENSITY BONE DENSITY [facility] Start: 07-03-2018 Urine microalbumin profile DTAP,TDAP,TD (1 - Tdap) [facility] Start: 2014 RSV Vaccine (1 - 1-dose 60+ series) RSV Vaccine (1 - 1-dose 60+ series) [facility] Start: 2004 Influenza vaccination LUNG CANCER SCREENING [facility] Start: 2004 SHINGRIX VACCINE (1 of 2) SHINGRIX VACCINE (1 of 2) [facility] Start: 1999 COLOGUARD (FIT-DNA) COLOGUARD (FIT-DNA) [facility] Start: [address] COLONOGRAPHY [facility] Start: 1999 FECAL OCCULT BLOOD FECAL OCCULT BLOOD [facility] Start: 1999 Screening for malignant neoplasm of colon [facility] Start: 1999 SIGMOIDOSCOPY SIGMOIDOSCOPY [facility] Bacteria identified in Urine by Culture URINE CULTURE Microbiology Routine Gross hematuria Ordered: 07/24/2022 [facility] Work Phone: Comment on above: Ordered: 07/24/2022 SUNI / TRICHOMONA S AMPLIFICATION SUNI / TRICHOMONAS AMPLIFICATION Microbiology Routine Acute vaginitis Ordered: 07/24/2022 [facility] Work Phone: Comment on above: Ordered: 07/24/2022 COVID & INFLUENZA A/ B & RSV PCR, ROUTINE COVID & INFLUENZA A/B & RSV PCR, ROUTINE Microbiology Routine Viral URI with cough 01/26/2025 1:45 PM EDT [facility] Work Phone: CT Chest and Abdomen W contrast IV [facility] CT Chest and Abdomen W contrast IV [facility] End: 11-16-2025 CT Chest W contrast IV CT CHEST W IVCON Radiology STAT Liver masses 1 Occurrences starting 10/17/2024 until 11/16/2025 [facility] Work Phone: Comment on above: 1 Occurrences starting 10/17/2024 until 11/16/2025 End: 07-25-2025 DBT Breast - bilateral screening LYN SCREENING W ANT Radiology Routine Encounter for screening mammogram for breast cancer 1 Occurrences starting 06/25/2024 until 07/25/2025 [facility] Work Phone: Comment on above: 1 Occurrences starting 06/25/2024 until 07/25/2025 End: 09-21-2023 DXA-AXIAL SKELETON DXA-AXIAL SKELETON Radiology Routine Screening for osteoporosis 1 Occurrences starting 08/22/2022 until 09/21/2023 [facility] Work Phone: Comment on above: 1 Occurrences starting 08/22/2022 until 09/21/2023 End: 02-21-2024 ECG COMPLETE ECG COMPLETE ECG Routine Bradycardia 1 Occurrences starting 02/20/2023 until 02/21/2024 [facility] Work Phone: Comment on above: 1 Occurrences starting 02/20/2023 until 02/21/2024 ECG COMPLETE ECG COMPLETE ECG 02/20/2023 9:30 AM EDT [facility] End: 02-21-2024 EXERCISE STRESS ECG (WITHOUT IMAGING) EXERCISE STRESS ECG (WITHOUT IMAGING) Cardiology Routine Bradycardia First degree AV block 1 Occurrences starting 02/20/2023 until 02/21/2024 [facility] Work Phone: Comment on above: 1 Occurrences starting 02/20/2023 until 02/21/2024 Interventional radiology Consult note IR INTERVENTIONAL RADIOLOGY CONSULT Radiology Routine Abnormal MRI, liver Ordered: 10/16/2024 [facility] Work Phone: Comment on above: Ordered: 10/16/2024 End: 09-16-2023 LYN SCREENING LYN SCREENING Radiology Routine Encounter for screening mammogram for breast cancer 1 Occurrences starting 08/17/2022 until 09/16/2023 [facility] Work Phone: Comment on above: 1 Occurrences starting 08/17/2022 until 09/16/2023 End: 08-23-2024 LYN SCREENING LYN SCREENING Radiology Routine Encounter for screening mammogram for breast cancer 1 Occurrences starting 07/25/2023 until 08/23/2024 [facility] Work Phone: Comment on above: 1 Occurrences starting 07/25/2023 until 08/23/2024 Patient Education [facility] Work Phone: Patient referral [facility] Work Phone: Positron emission tomography with computed tomography [facility] Removal skn tags surface to air weapons officer fibrq tags any area upw/15 REMOVAL OF SKIN TAGS 1-15 Procedures Routine Skin tag S/P cryotherapy of skin lesion Ordered: 09/19/2022 [facility] Work Phone: Comment on above: Ordered: 09/19/[facility]22 [facility] Immunizations Immunization Date Immunization Notes Care Provider [facility] 07-15-2024 influenza, high dose seasonal, preservative-free Jeanette Podlogar [employer]ANCH OPERATION EVALUATION MANAGER.DIE POLISHER Work Phone: [facility] 07-15-2024 influenza virus vaccine, unspecified formulation Girish Lemos MD Work Phone: [facility] 06-22-2023 influenza (HD-IIV4) vaccine, age 65+ yr, high dose, quadrivalent, PF (FLUZONE HIGH-DOSE) Jeanette Podlogar BRANCH OPERATION EVALUATION MANAGER.DIE POLISHER Work Phone: [facility] 06-22-2023 influenza virus vaccine, unspecified formulation Girish Lemos MD Work Phone: [facility] 08-22-2022 influenza, high-dose , quadrivalent vaccine (FLUZONE HIGH DOSE QUADRIVALENT) Jeanette Podlogar BRANCH OPERATION EVALUATION MANAGER.DIE POLISHER Work Phone: [facility] 08-22-2022 pneumococcal (PCV20) vaccine, 20 valent (PREVNAR 20) Jeanette Podlogar BRANCH OPERATION EVALUATION MANAGER.DIE POLISHER Work Phone: [facility] 08-22-2022 pneumococcal Conjuga te, unspecified formulation Jeanette Podlogar BRANCH OPERATION EVALUATION MANAGER.DIE POLISHER Work Phone: [facility] Work Phone: 11-24-2020 COVID-19 vaccine, fu ll dose (MODERNA) Girish Lemos MD Work Phone: [facility] 10-27-2020 COVID-19 vaccine, fu ll dose (MODERNA) Girish Lemos MD Work Phone: [facility] 07-17-2020 influenza, injectabl e, quadrivalent, preservative free [facility] 07-17-2020 influenza, seasonal, injectable Dr. Fabricio Lemos Work Phone: [facility] 07-17-2020 influenza, seasonal, injectable, preservative free Girish Lemos MD Work Phone: [facility] Work Phone: 04-09-2020 pneumococcal polysaccharide vaccine, 23 valent Girish Lemos MD Work Phone: [facility] 07-02-2019 influenza, injectabl e, quadrivalent, contains preservative Girish Lemos MD Work Phone: [facility] 07-02-2018 influenza, injectabl e, quadrivalent, contains preservative Girish Lemos MD Work Phone: [facility] 07-02-2018 tetanus and diphther ia toxoids, adsorbed, preservative free, for adult use (5 Lf of tetanus toxoid and 2 Lf of diphtheria toxoid) Girish Lemos MD Work Phone: [facility] 06-15-2017 influenza, injectabl e, quadrivalent, contains preservative Girish Lemos MD Work Phone: [facility] Work Phone: 07-24-2016 influenza, injectabl e, quadrivalent, contains preservative Girish Lemos MD Work Phone: [facility] Work Phone: 08-16-2015 influenza, seasonal, injectable Girish Lemos MD Work Phone: [facility] Work Phone: 06-17-2014 influenza, injectabl e, quadrivalent, preservative free Girish Lemos MD Work Phone: [facility] Work Phone: 05-18-2014 influenza, seasonal, injectable Girish Lemos MD Work Phone: [facility] Work Phone: 09-17-2012 influenza, seasonal, injectable Girish Lemos MD Work Phone: [facility] Work Phone: 09-17-2010 pneumococcal polysaccharide vaccine, 23 valent Girish Lemos MD Work Phone: [facility] Work Phone: 09-17-1992 tetanus and diphther ia toxoids, adsorbed, preservative free, for adult use (5 Lf of tetanus toxoid and 2 Lf of diphtheria toxoid) Girish Lemos MD Work Phone: [facility] Work Phone: Payers Date Payer Category Payer Unknown [id number] 2024 Self-pay [id number] 2022 Medicare (Managed Care) MMO MEDADVANTAGE O [id number] 2020 Medicare [id number] 2018 Medicare MMO MEDICARE MMO MEDADVANTAGE O [id number] 2018-Present [phone] [address] [place] [address] O [id number]. [id number] 2018 Medicare [id number] [id number]. [id number] 2013 Unknown [id number] 1955 Unknown [id number] 2.16.840.1.741825.3.579.2. 903 1955 Unknown [id number] 2.16.840.1.788335.3.579.2. 903 1954 Unknown [id number] 2.16840.1.023271.3.579.2. 903 1954 Unknown [id number] 2.16.840.1.383393.3.579.2. 651 1954 Unknown [id number] 2.16840.1.328643.3.579.2. 651 1954 Unknown [id number] 2.16.840.1.157443.3.579.2. 651 Medicare [id number] Unknown [id number] 2.16.840.1.727296.3.579.2. 462 Unknown [id number] 2.16.840.1.068890.3.579.2. 462 Unknown [id number] 2.16.840.1.432130.3.579.2. 462 Unknown [id number] 2.16.840.1.174885.3.579.2. 462 Unknown [id number] 2.16.840.1.377678.3.579.2. 462 Unknown [id number] 2.16.840.1.208742.3.579.2. 462 Unknown [id number] 2.16.840.1.453326.3.579.2. 462 Unknown [id number] 2.16.840.1.504855.3.579.2. 462 Unknown [id number] 2.16.840.1.324456.3.579.2. 462 Unknown [id number] 2.16.840.1.092283.3.579.2. 462 Unknown [id number] 2.16.840.1.326480.3.579.2. 462 Unknown [id number] 2.16.840.1.739405.3.579.2. 462 Unknown [id number] 2.840.1.318170.3.579.2. 462 Unknown [id number] 2.16.840.1.338781.3.579.2. 462 Unknown [id number] 2.16.840.1.729530.3.579.2. 462 Unknown [id number] 2.16.840.1.726247.3.579.2. 462 Unknown [id number] 2.16.840.1.571421.3.579.2. 462 Unknown [id number] 2.16.840.1.717125.3.579.2. 462 Unknown [id number] 2.16.840.1.658901.3.579.2. 462 Unknown [id number] 2.16.840.1.395981.3.579.2. 462 Unknown [id number] 2.16.840.1.205273.3.579.2. 462 Unknown [id number] 2.16.840.1.060327.3.579.2. 462 Unknown [id number] 2.16.840.1.822882.3.579.2. 462 Unknown [id number] 2.16.840.1.205101.3.579.2. 462 Unknown [id number] 2.16.840.1.044799.3.579.2. 462 Unknown [id number] 2.16.840.1.334052.3.579.2. 462 Unknown [id number] 2.16.840.1.642055.3.579.2. 462 Unknown [id number] 2.16.840.1.389268.3.579.2. 462 Unknown [id number] 2.16.840.1.135117.3.579.2. 462 Unknown [id number] 2.16.840.1.099325.3.579.2. 462 Unknown [id number] 2.16.840.1.348818.3.579.2. 462 Unknown [id number] 2.16.840.1.747639.3.579.2. 462 Unknown [id number] 2.16.840.1.578933.3.579.2. 462 Unknown [id number] 2.16.840.1.345042.3.579.2. 462 Unknown [id number] 2.16.840.1.510997.3.579.2. 462 Unknown [id number] 2.16.840.1.078592.3.579.2. 462 Social History Date Type Detail Facility Start: 01-05-2022 End: 06-13-2023 Tobacco smoking status [facility] Unknown if ever smoked [facility] Start: 07-22-2020 None [facility] Start: 07-16-2020 Cigarettes [facility] Start: 1955 Sex Assigned At Female [facility] Start: 11-14-2017 End: 07-15-2024 Tobacco smoking status NHIS Ex-smoker [facility] Start: 08-14-1967 End: 08-14-2016 History of tobacco use Current smoker [facility] Start: 08-14-1967 End: 08-14-2016 History of tobacco use Cigarette Smoker [facility] Start: 11-14-2017 End: 01-24-2023 Cigarettes smoked current (pack per day) - Reported 1 [facility] Work Phone: Start: 11-14-2017 End: 07-15-2024 Tobacco use and exposure Smokeless tobacco non-user [facility] Start: 11-25-2021 End: 01-13-2025 Alcohol intake Current non-drinker of alcohol (finding) [facility] Start: 1955 Sex Assigned At Not on file [facility] Start: 10-16-2021 End: 03-23-2022 Exposure to SARS-CoV-2 (event) Not sure [facility] Start: 01-24-2023 End: 03-21-2023 Tobacco use panel [facility] Work Phone: National Score (1-100), lower number is lower risk 72 [facility] Work Phone: Start: 11-23-2024 End: 01-10-2025 Sex Female (finding) [facility] NEGATED: Highlighted row Not [facility] Medical Equipment Procedure Code Equipment Code Equipment Origin al Text Equipment Identifier Dates Insertion, vascular access port ([id number]) [id number] FDA Start: 12-12-2024 Goals Date Patient Goal Desired Activity /State Functional Status Date Assessment Result Facility 01-10-2025 Functional status Ambulates [facility] Work Phone: 11-15-2024 Functional status Ambulates;Up ad joselito [facility] Work Phone: Mental Status Date Assessment Result Facility 02-16-2025 Cognitive function Voice/Name [facility] Work Phone: 01-10-2025 Cognitive function Voice/Name [facility] Work Phone: 12-12-2024 Cognitive function Awake;Alert [facility] Work Phone: 12-12-2024 Cognitive function Voice/Name [facility] Work Phone: 11-24-2024 Cognitive function Voice/Name [facility] Work Phone: 11-23-2024 Cognitive function Awake;Alert;A ppropriate;Follow s Commands [facility] Work Phone: 11-15-2024 Cognitive function Voice/Name [facility] Work Phone: 09-13-2022 Cognitive function Level Of Cons ciousness Awake;Alert;Appropriate;Follow s Commands [facility] Work Phone: Clinical Notes 11-25-2021 to 03-31-2025 Telephone Encounter - Ney Mitchell LPN - 03/31/2025 1:48 PM EDTTelephone Encounter - Ney Mitchell LPN - 03/31/2025 1:48 PM EDTTelephone Encounter - Lindsey Up - 03/31/2025 11:08 AM EDT Note Date & Type Note Facility 03-31-2025 Telephone encount er Note Rx on 01/13/25 was a med update. Rx pending. Please review and file. Ney Mitchell LPN [facility] 03-31-2025 Miscellaneous Notes Formattin g of this note might be different from the original. Rx on 01/13/25 was a med update. Rx pending. Please review and file. Ney Mitchell LPN Prescription is listed as being sent on 01-13-25, but there is no acknowledgement. Prescription Refill Information The patient has been [...] Yes Requested Prescriptions Pending Prescriptions Disp Refills losartan (COZAAR) 50 mg tablet 90 tablet 1 Sig: Take 0.5 tablets by mouth once daily. Lindsey Royal March 31, 2025 11:08 AM documented in this encounter [facility] 03-31-2025 Telephone encount er Note Prescription is listed as being sent on 01-13-25, but there is no acknowledgement. [facility] 03-31-2025 Telephone encount er Note Prescription Refill Information [...] Yes Requested Prescriptions Pending Prescriptions Disp Refills losartan (COZAAR) 50 mg tablet 90 tablet 1 Sig: Take 0.5 tablets by mouth once daily. Lindsey Lucas [facility] March 31, 2025 11:08 AM [facility] 02-24-2025 Progress note Note Date/Time February 24, 2025 9:40am [facility] [address] [address] OFFICE VISIT Date of Service: 02/24/25908 MR#: [id number] Acct: [id number] Name: BETSY RODRIGEZ Rep #: [id number] : 1955 From: Sherice ramirez MD Age/Sex: 69/F [place] [facility] [place]: Signed HPI Subjective Date of Service 02/24/25 Chief Complaint Metastatic lung cancer History of Present Illness 69-year-old female ex-smoker who presented with rapid progression of right upperquadrant pain, anorexia, and weight loss. October 31, 2024 CT scan of the chest ([facility]): Left upper lobe perihilar mass with [...] including evidence of possible mild acute sinusitis. February 17, 2025 CT chest abdomen: IMPRESSION: 1. Interval decreased size of the left perihilar nodule with comparative measurements above and mild adjacent scarring likely related to posttreatment change. 2. Similar-appearing diffuse hepatic metastatic disease. 3. Interval improvement of the previous mediastinal and left hilar lymphadenopathy. No new concerning adenopathy. 4. New scattered osseous metastatic disease throughout the thoracolumbar spine. No pathologic fracture.* *These are not new and were seen on PET CT of November 11, 2024 Treatment Summary: Carboplatin/etoposide/atezolizumab (added with cycle 2) November 25, 2024- Interval History PFSH Medical History Cancer Difficulty swallowing Hypothyroidism GERD (gastroesophageal reflux [...] hypertension Bronchiectasis History of staph infection Hypoxia Surgical History History of vascular access device Hx of [...] never ROS ROS Narrative Overall I feel 100% better since I started Constitutional Constitutional: Reports systems reviewed and no addt'l complaints, except as documented, fatigue and other Details: Less fatigue and improved appetite ; Denies anorexia, fever(s) or weight loss Eyes Eyes: Reports systems reviewed and no addt'l complaints, except as documented ENT HEENT: Reports systems reviewed and no addt'l complaints, except as documented; Denies headache(s) or mouth lesions Cardiovascular Cardiovascular: Reports systems reviewed [...] and no addt'l complaints, except as documented, back pain and other Details: Pain is manageable with as needed analgesia Integumentary Integumentary: Reports systems reviewed and no addt'l complaints, except as documented; Denies new lesions Neurologic Neurologic: Reports systems reviewed and no addt'l complaints, except as documented; Denies focal weakness, frequent falls or paresthesias Psychiatric Psychiatric: Reports systems reviewed and no addt'l complaints, except as documented Endocrine Endocrinology: Reports systems reviewed and no addt'l complaints, except as documented Hematologic/Lymphatic Hematologic/Lymphatic: Reports systems reviewed and no addt'l complaints, exceptas documented Allergic/Immunologic Allergic/Immunologic: Reports systems reviewed and no addt'l complaints, except as documented Intake Vital Signs 02/03/25 09:01 02/24/25 09:10 02/24/25 09:13 Height 5 ft 3 in 5 ft 3 in 5 ft 3 in Weight: 65.487 kg BMI 25.5 BP 136/79 H Blood Pressure Location Lt brachial Position Sitting Respiration 16 Pulse 63 Pulse Source Monitor Temp 98.6 F Temperature Source Temporal Artery Pulse Oximetry (%) 94 Oxygen Delivery Method room air Intake Is patient in pain?: Yes (back ) Pain scale (1-10): 3 Allergies MEAGAN Inhibitors Allergy (Verified 02/24/25 09:13) Rash codeine Allergy (Verified 02/24/25 09:13) Vomiting walnut Allergy (Verified 02/24/25 09:13) Food Allergy prednisone Adverse Reaction (Verified 02/24/25 09:13) Other [id number]-[id number] Reductase Inhibitor (Zsxbwjz-Hml-Uhz Reductase Inhibitor) Adverse Reaction (Verified 02/24/25 09:13) cramps Medications ?Medication ?Instructions ?Recorded ?Confirmed ?Type levothyroxine 25 mcg tablet 25 mcg PO DAILY thyroid 02/24/25 History gabapentin 400 mg capsule 400 mg PO TID nerve pain 02/24/25 History Disability Placard #1 ea 09/15/20 02/24/25 Rx potassium citrate 10 mEq (1,080 20 meq PO DAILY potass ium 01/26/22 02/24/25 History mg) tablet,extended release albuterol sulfate 90 mcg/actuation 2 puff inhalation Q 4H PRN 06/13/23 02/24/25 History aerosol inhaler shortness of breath or wheez ing fluticasone propionate 50 1 spray intranasal DAILY PRN nasal 05/28/24 02/24/25 History mcg/actuation nasal congestion spray,suspension (Flonase Allergy Relief) losartan 25 mg tablet 25 mg PO DAILY blood pressur e 11/12/24 02/24/25 History ondansetron HCl 8 mg tablet 8 mg PO Q8H PRN nausea and vomiting 11/24/24 02/24/25 History docusate sodium 100 mg capsule 100 mg PO BID PRN const ipation 12/11/24 02/24/25 History omeprazole 40 mg capsule,delayed 40 mg PO BID gerd 02/24/25 History release lidocaine-prilocaine 2.5 %-2.5 % 1 applic topical ONCE PRN port 12/15/24 02/24/25 Rx topical cream access 30 days #30 grams prochlorperazine maleate 10 mg 10 mg PO Q6H PRN nausea and 12/15/24 02/24/25 Rx tablet vomiting #30 tabs mirtazapine 15 mg tablet 15 mg PO QHS sleep #30 tabs 12/29/24 02/24/25 Rx oxycodone 10 mg tablet 10 mg PO Q4H PRN pain 02/24/25 History furosemide 20 mg tablet 20 mg PO DAILY PRN leg 01/1002/24/25 Rx swelling/SOB #30 tabs Have you fallen in the past year?: Yes Central Venous Access Central Venous Access: Yes Port/PICC: Port CBC, CMP show on 07/06/[address] scan images of February 2025 reviewed in EMR Exam Physical Exam Narrative ECOG 1 Const General Appearance: cooperative and frail HEENT [...] no focal motor deficits Coordination / Balance: iwpzaj-jk-qdlw test normal Speech: speech normal Gait (Neuro): normal gait Psych cooperative Coding Level of Care Code Off vis,est,level 4 Exam Problem Focused Diagnoses 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 Following 4 cycles of systemic therapy patient's disease is in partial remissionat the patient subjectively feels significantly better (100% by her own words). Chronic comorbid conditions: Hypertension, dyslipidemia, GERD, Plan: 1. Continue systemic chemotherapy with carboplatin etoposide atezolizumab combination for -6 cycles to be followed by atezolizumab maintenance. 2. Continue growth factor support for primary prophylaxis being high risk for febrile neutropenic sepsis. 3. Elective imaging with CT scan of the chest and abdomen after cycle 6 and prior to going on maintenance immunotherapy. 4. Pain management as per consult. 5. To obtain dental clearance, if any dental work is needed to schedule 1 monthafter cycle of combination chemoimmunotherapy and then can start on supportive therapy with zoledronic acid. Patient was seen with her family, impression and plan discussed. Sherice Fernandez MD [employer], [facility] Divisions of Medical Oncology & Hematology Department of Internal Medicine [place] [phone] This note was generated using a voice [...] Have you fallen in the past year?: Yes 02/24/25 0940 <Electronically signed by Sherice delgadillo MD> Date _ Sherice Fernandez MD Cosigner Signature: Date (if applicable) CC: ~ [employer] Work Phone: [phone] 217-717306-06-2025 Radiology Diagnostic study [facility]06-02-2025 Procedure [facility]05-28-2025 Telephone encounter Note* Telephone Encounter - Lindsey Up - 02/11/2025 8:39 AM EDT Prescription Refill Information The patient [...] Lindsey Royal February 11, 2025 8:40 AM [facility]05-28-2025 Miscellaneous Notes* Telephone Encounter - Lindsey Up - 02/11/2025 8:39 AM EDT Prescription Refill Information The patient [...] 11, 2025 8:40 AM [facility] [address] [address] OFFICE VISIT Date of Service: 02/03/25 0856 MR#: [id number] Acct: [id number] Name: BETSY RODRIGEZ Rep #: [id number] : 1955 From: Sherice ramirez MD Age/Sex: 69/F Location: [facility] Status: Signed HPI Subjective Date of Service 02/03/25 Chief Complaint Metastatic lung cancer History of Present Illness 69-year-old female ex-smoker who presented with rapid progression of right upperquadrant pain, anorexia, and weight loss. October 31, 2024 CT scan [facility] the chest ([facility] Left upper lobe perihilar mass with [...] and no addt'l complaints, except as documented, anorexiaand heartburn; Denies abdominal pain, change in bowel [...] 02/03/25 09:01) Vomiting walnut Allergy (Verified 02/03/25 09:01) Food Allergy prednisone Adverse Reaction (Verified 02/03/25 09:01) Other Cdliuga-PDM-PmL Reductase Inhibitor (Lhorgta-Dqa-Frt Reductase Inhibitor) Adverse Reaction (Verified 02/03/25 09:01) [...] no focal motor deficits Coordination / Balance: zpxvbk-md-egay test normal Speech: speech normal Gait (Neuro): [...] impression and plan discussed. Sherice Fernandez MD [employer], [facility] Divisions of Medical Oncology & Hematology Department of Internal Medicine [place] [address] This note was generated using a voice [...] in the past year?: No 02/03/25 0929 leona ERNANDEZ> Date _ Sherice Fernandez MD Cosigner Signature: Date (if applicable) CC: ~ [facility]05-20-2025 Progress note Author Sherice Fernandez [facility] Note Date/Time February 03, 2025 9:29a m [facility] [place] [address] OFFICE VISIT Date of Service: 02/03/25 0856 MR#: [id number] Acct: [id number] Name: BETSY RODRIGEZ Rep #: [id number] : 1955 From: Sherice ramirez MD Age/Sex: 69/F Location: [facility] Status: Signed HPI Subjective Date of Service 02/03/25 Chief Complaint Metastatic lung cancer History of Present Illness 69-year-old female ex-smoker who presented with rapid progression of right upperquadrant pain, anorexia, and weight loss. October 31, 2024 CT scan [facility] ([facility] Left upper lobe perihilar mass with [...] prednisone Adverse Reaction (Verified 02/03/25 09:) Other Yzijuhp-WTG-EeT Reductase Inhibitor (Odpjuin-Wpj-Fgi Reductase Inhibitor) Adverse Reaction (Verified 02/03/25 09:01) [...] no focal motor deficits Coordination / Balance: juveft-fd-gtui test normal Speech: speech normal Gait (Neuro): [...] impression and plan discussed. Sherice Fernandez MD [employer], [facility] Divisions of Medical Oncology & Hematology Department of Internal Medicine [place] [address] This note was generated using a voice [...] Cosigner Signature: Date (if applicable) CC: ~ [employer] Work Phone: [phone] Telephone encounter Note* Telephone Encounter - Rosario Haddad LPN - 01/27/2025 12:28 PM EDT Phoned patient and reviewed results with her. She voiced understanding. Rosario Haddad LPN [facility]05-13-2025 Miscellaneous Notes* Telephone Encounter - Rosario [...] and call with worseningsymptoms. [facility] Telephone encounter Note * Telephone Encounter - Rosario Haddad LPN - 01/27/2025 12:27 PM EDT ----- Message from Girish Lemos MD sent at 01/27/2025 7:13 AM EDT ----- Negative for COVID/flu/RSV. Continue supportive care as discussed in office and call with worseningsymptoms. [facility]05-12-2025 Telephone encounter Note* Telephone Encounter - Rosario Haddad LPN - 01/26/2025 3:06 PM EDT Phoned patient and updated her with results. Patient voiced understanding. Rosario Haddad LPN [facility]05-12-2025 Miscellaneous Notes* Telephone Encounter - Rosario [...] Continue treatment as discussed. [facility] in [facility] Telephone encounter Note * Telephone Encounter - Rosario Haddad LPN - 01/26/2025 3:05 PM EDT ----- Message from Girish Lemos MD sent at 01/26/2025 2:40 PM EDT ----- Patient's CXR is negative for pneumonia. Otherwise, stable xray. Continue treatment as discussed. [facility]05-12-2025 History of Present illness Narrative* Antonia [...] PATIENT PRESENTS WITH AN IMPLANTABLE OR ATTACHED SENIOR ASP NET DEVELOPER: No RADIOLOGY DEPARTMENT: General X-ray: Exam(s) Completed: Chest X-Ray PERIPHERAL IV DATA: Not applicable SIGNED BY: RT Dameon(R) January 26, 2025 1:47 PM documented in this encounterS[facility]05-12-2025 NoteHNO ID: [id number] Author: ANTONIA SIMMS RT(Coy) Service: Radiology Author Type: Technologist Type: Progress [...] PATIENT PRESENTS WITH AN IMPLANTABLE OR ATTACHED SENIOR ASP NET DEVELOPER: No RADIOLOGY DEPARTMENT: General X-ray: Exam(s) Completed: Chest X-Ray PERIPHERAL IV DATA: Not applicable SIGNED BY: RT Dameon(Coy) January 26, 2025 1:47 [facility]05-12-2025 QjhyBYQE-KRI-3 (AGENT OF COVID-19) RNA: Not detected INFLUENZA A RNA: Not detected INFLUENZA B RNA: Not detected RESPIRATORY SYNCYTIAL VIRUS (RSV) RNA: Not detectedEast Liverpool City HospitalComment on above:Performed By: #### [id number] ####[facility] LABCLIA [id number] [address] [id number] Instructions* Patient Instructions* Girish Lemos MD - 01/26/2025 1:38 PM EDT Take the prescribed Tessalon Perles as needed for your cough (the order was sent to [facility] in [place]). For additional cough relief, you may use facz-rtc-notibpz cough drops or Delsym if desired. For your sore throat, try drinking tea with honey, gargling warm salt water, and using bdma-wqa-xhwazvi chloraseptic sprays or lozenges. Drink plenty of [...] return for further evaluation. documented in this encounterS[facility]05-12-2025 NoteHNO ID: [id number] Author: GIRISH LEMOS MD Service: ? Author Type: Physician Type: Progress Notes Filed: 01/26/2025 13:43 Note Text: Chief Complaint Patient presents with: Cough: Non-productive Throat Problem: Hoarse and sore sinus congestion with occasional green mucus Perspiration Recording using [employer] software for draft documentation of the visit was discussed with the patient/authorized claim service representative; all questions welcomed and answered. Patient/authorized claim service representative agreed to proceed HPI Betsy Rodrigez [...] 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 Johnson Dysphagia Dr. 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) Obesity (BMI 30.0-34.9) Other pulmonary embolism without acute cor pulmonale (HCC) [facility] Requiring intubation Small cell lung cancer [...] cyst removal from eyelids TONSILLECTOMY HX 195 Family History FAMILY HISTORY Problem Relation Age of Onset Cancer Mother lung Hypertension Mother Cancer Father lung No Known Problems Sister Cancer Brother lung No Known Problems Brother No Known Problems Brother Stroke Maternal Grandmother or SC, patient unsure Coronary Artery Disease Maternal Grandfather Alcohol abuse Paternal Grandfather Patient Allergies ALLERGIES Allergen Reactions Meagan Inhibitors Rash Codeine Vomiting, Other: See Comments Headache Remeron [Mirtazapin* Other: See Comments Fatigue Xxqftcs-Cdx-Bxw Red* Myalgia [place] Unknown Zetia [Ezetimibe] Myalgia Current Medications Current [...] hours as needed for pain. mv,jaci,iron,mn/folic acid/chol (NLBX-ORJA-UWWRJ, PABA, ORAL) Take 1 tablet by mouth [...] day. No current facility-administe (more content not included)...[facility]05-12-2025 History of Present illness Narrative* Girish Lemos MD - 01/26/2025 1:06 PM EDT Chief Complaint Patient presents with: Cough: Non-productive Throat Problem: Hoarse and sore sinus congestion with occasional green mucus Perspiration Recording using [employer] software for draft documentation of the visit was discussed with the patient/authorized claim service representative; all questions welcomed and answered. Patient/authorized claim service representative agreed to proceed HPI Betsy Rodrigez [...] 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 Johnson Dysphagia Dr. 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) Obesity (BMI 30.0-34.9) Other pulmonary embolism without acute cor pulmonale (HCC) [facility] Requiring intubation Small cell lung cancer [...] OF cyst removal from eyelids TONSILLECTOMY HX 8 Family History FAMILY HISTORY Problem Relation Age of Onset Cancer Mother lung Hypertension Mother Cancer Father lung No Known Problems Sister Cancer Brother lung No Known Problems Brother No Known Problems Brother Stroke Maternal Grandmother or SC, patient unsure Coronary Artery Disease Maternal Grandfather Alcohol abuse Paternal Grandfather Patient Allergies ALLERGIES Allergen Reactions Meagan Inhibitors Rash Codeine Vomiting, Other: See Comments Headache Remeron [Mirtazapin* Other: See Comments Fatigue Nuctlmh-Gmm-Pgf Red* Myalgia [place] Unknown Zetia [Ezetimibe] Myalgia Current Medications Current [...] hours as needed for pain. mv,jaci,iron,mn/folic acid/chol (UDER-FWSZ-YYXAD, PABA, ORAL) Take 1 tablet by mouth [...] Perles for cough management; advised use of nheo-zal-ieoajfk cough drops or Delsym. - Recommended tea with honey, warm salt water gargles, and rxyq-tdx-jhjejdd Chloraseptic sprays or lozenges for sore throat. [...] recovery from current illness. documented in this encounterS[facility]04-29-2025 NoteHNO ID: [id number] Author: GIRISH LEMOS MD Service: ? Author Type: Physician Type: Progress Notes Filed: 01/13/2025 10:35 Note Text: Chief Complaint Patient presents with: Hospital F/U [facility] Betsy Rodrigez is a 69 year old female who presents here today for Hospital discharge follow up. 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 Johnson Dysphagia Dr. 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) Obesity (BMI 30.0-34.9) Other pulmonary embolism without acute cor pulmonale (HCC) Pneumonia due to [place] [address] virus Requiring intubation Small cell lung cancer [...] Known Problems Brother Stroke Maternal Grandmother or SC, patient unsure Coronary Artery Disease Maternal Grandfather Alcohol abuse Paternal Grandfather Patient Allergies ALLERGIES Allergen Reactions Meagan Inhibitors Rash Codeine Vomiting, Other: See Comments Headache Remeron [Mirtazapin* Other: See Comments Fatigue Nwfexfu-Sav-Pll Red* Myalgia [place] Unknown Zetia [Ezetimibe] Myalgia Current Medications Current [...] hours as needed for pain. mv,jaci,iron,mn/folic acid/chol (JJZK-WRMF-WLSMQ, PABA, ORAL) Take 1 tablet by mouth once daily. (Patient not taking: Reported on 08/22/2022) Minoxidil 2 % external solution Apply 1 mL to affected area twice daily. albuterol (PROVENTIL) 2.5 (more content not included)...[facility]04-29-2025 History of Present illness Narrative* Girish Lemos MD - 01/13/2025 9:08 AM EDT Chief Complaint Patient presents with: Hospital F/U [facility] Betsy Rodrigez is a 69 year old female who presents here today for Hospital discharge follow up. 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 Johnson Dysphagia Dr. 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) Obesity (BMI 30.0-34.9) Other pulmonary embolism without acute cor pulmonale (HCC) [facility] Requiring intubation Small cell lung cancer [...] cyst removal from eyelids TONSILLECTOMY HX 195 Family History FAMILY HISTORY Problem Relation Age of Onset Cancer Mother lung Hypertension Mother Cancer Father lung No Known Problems Sister Cancer Brother lung No Known Problems Brother No Known Problems Brother Stroke Maternal Grandmother or SC, patient unsure Coronary Artery Disease Maternal Grandfather Alcohol abuse Paternal Grandfather Patient Allergies ALLERGIES Allergen Reactions Meagan Inhibitors Rash Codeine Vomiting, Other: See Comments Headache Remeron [Mirtazapin* Other: See Comments Fatigue Jwbklax-Mtu-Suw Red* Myalgia [place] Unknown Zetia [Ezetimibe] Myalgia Current Medications Current [...] hours as needed for pain. mv,jaci,iron,mn/folic acid/chol (DMOC-ZCRV-XLVBP, PABA, ORAL) Take 1 tablet by mouth [...] Weight loss - ICD9: 783.21, ICD10: R63.4 2/ cancer. Continue zofran PRN for nausea. Encouraged regular meals. F/u with palliative. I spent a total of 40 minutes on the date of the service which included preparing to see the patient, mhzo-wn-cbtx patient care, completing clinical documentation, obtaining and/or reviewing separately obtained history, performing a medically appropriate examination, counseling and educating the pat ient/family/caregiver, and ordering medications, tests, or procedures. Girish Lemos MD documented in this encounterS[facility]04-26-[address] [facility] Medical Records Department [address] [place] [address] Discharge Summary 01/10/25 1428 MR#: [id number] Acct: [id number] Name: BETSY RODRIGEZ Marta Rep #:[id number] : 1955 69 From: Jassi Schneider PCP: Dr. Fabricio Lemos MD Status :ADM FARIBA Location: [place] [address] Providers Date of Admission: 01/09/25 Date of [...] mcg tablet 25 mcg PO DAILY thyroid 02/17/18 gabapentin 400 mg capsule 400 mg PO [...] 01/10/25 14:09 RMA (Rec: 01/10/25 14:09 RMA [id number]) Nutrition Malnutrition Evidence of Yes Malnutrition Exists [...] 93.2 H, Lymph % (Auto) 4.7 L, [place] % (Auto) 0.2, Eos % (Auto) 0.0, Baso % (Auto) 0.1, Absolute Neuts (auto) 17.1 H, Absolute Lymphs (auto) 0.86, Nucleated RBC % 0, Platelet Estimate T INC, Sodium 141, Potassium 3.6, Chloride 107, [...] relate to congestion and edema. Reading Location: [facility] Echocardiogram 01/09/25 20:22 Interpretation Summary The LV [...] Self Care Charges/Coding Visit Charges Inpatient E&M: 56272 Disch Hosp >30min 01/10/25 9092 Cosigner Signature (if applicable): CC: Dr. Fabricio Lemos MD; Dr. Jassi Borden MD~ Signed [facility]04-26-2025 Discharge summary [facility] Medical Records Department [address] [place] [address] Instructions for Home/Discharge Instructions 01/10/25 1425 MR#: [id number] Acct: [id number] Name: BETSY RODRIGEZ Rep #:[id number] : [...] MD; Dr. Estrella Cabezas MD ~ Signed [facility]04-26-2025 Note[facility] Discharge summary Author Austin Mack [facility] Note Date/Time January 09, 2025 11: 20pm [facility] Medical Records Department [address] [place] [address] Emergency Department Summary 01/09/25 MR#: [id number] Acct: [id number] Name: ELIABETSY M Rep #:[id number] : 1955 69 From: Austin Mack MD PCP: Dr. Fabricio Lemos MD Status :ADM FARIBA Location: [address] History of Present Illness Chief Complaint: [...] reaction to her white blood cell booster. [facility] Medical History Hypothyroidism GERD (gastroesophageal reflux disease) [...] Allergy prednisone AdvReac Other Verified 01/09/25 15:36 Rmncjur-YNZ-GxO Reductase AdvReac cramps Verified 01/09/25 15:36 Inhibitor (Gwazecn-Xdw-Bsf Reductase Inhibitor) Family History Mother Cancer Hx [...] 93.2 H Lymph % (Auto) 4.7 L [place] % (Auto) 0.2 Eos % (Auto) 0.0 [...] relate to congestion and edema. Reading Location: [facility] Discharge Plan Dx/Rx/DC Orders Clinical Impression: Chest pain, Shortness of breath, Small cell lung cancer, Elevated troponin Disposition Disposition: Acute Care Hospital [facility] Discharge Date/Time: 01/09/25 20:00 What to do if you have Problems For any increased pain, shortness of breath, bleeding, nausea or vomiting, chestpain, or any unexpected problems, contact your Primary Care Provider. Call [facility] ([phone]) or report to the closest Emergency Room. Call 911 if necessary. 01/09/252319 <Electronically signed by Austin Mack MD> Cosigner Signature (if applicable): CC: Dr. Fabricio Lemos MD ~ Signed [facility] Work Phone: 1(483) 953-659904-25-[address] [facility] Medical Records Department [address] [place] [address] Emergency Department Summary 01/09/25 MR#: [id number] Acct: [id number] Name: BETSY RODRIGEZ Rep #:[id number] : 1955 69 From: Austin Mack MD PCP: Dr. Fabricio Lemos MD Status :ADM FARIBA Location: [place] [address] HPI History of Present Illness Chief Complaint: [...] reaction to her white blood cell booster. [facility] Medical History Hypothyroidism GERD (gastroesophageal reflux disease) [...] Allergy prednisone AdvReac Other Verified 01/09/25 15:36 Xcyvhhc-WZN-TzB Reductase AdvReac cramps Verified 01/09/25 15:36 Inhibitor (Zagrykk-Nsq-Bxj Reductase Inhibitor) Family History Mother Cancer Hx [...] 93.2 H Lymph % (Auto) 4.7 L [place] % (Auto) 0.2 Eos % (Auto) 0.0 [...] relate to congestion and edema. Reading Location: [facility] Discharge Plan Dx/Rx/DC Orders Clinical Impression: Chest pain, Shortness of breath, Small cell lung cancer, Elevated troponin Disposition Disposition: Acute Care Hospital [facility] Discharge Date/Time: 01/09/25 20:00 What to do if you have Problems For any increased pain, shortness of breath, bleeding, nausea or vomiting, chestpain, or any unexpected problems, contact your Primary Care Provider. Call [facility] ([phone]) or report tothe closest Emergency Room. Call 911 if necessary. 01/09/252319 Cosigner Signature (if applicable): CC: Dr. Fabricio Lemos MD ~ Signed [facility]04-25-2025 Progress note Author [facility] Note Date/Time January 09, 2025 8:[address] [facility] Medical Records Department [address] [place] [address] Progress Note - Hospitalist 01/09/252015 MR#: [id number] Acct: [id number] Name: BETSY RODRIGEZ Rep #:[id number] : 1955 69 From: Estrella Cabezas MD PCP: Dr. Fabricio Lemos MD Status :ADM FARIBA Location: [place] [address] Hospitalist Note BNP elevated, will give dose of Lasix 01/09/252016 <Electronically signed by Estrella Cabezas MD> Cosigner Signature (if applicable): CC: ~ Signed [facility] Work Phone: 1(781) 781-278404-25-2025 History and physical note Author [facility] Note Date/Time January 09, 2025 8:[address] [facility] Medical Records Department [address] [place] [address] H&P Exam - Hospitalist 01/09/251930 MR#: [id number] Acct: [id number] Name: BETSY RODRIGEZ Rep #:[id number] : 1955 69 From: Estrella Cabezas MD PCP: Dr. 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 [facility] Medical History (Updated 01/09/25 @ 19:35 [...] Allergy prednisone AdvReac Other Verified 01/09/25 15:36 Nwpyfiz-FIY-YaK Reductase AdvReac cramps Verified 01/09/25 15:36 Inhibitor (Ldwtnkn-Ekz-Smv Reductase Inhibitor) Family History Mother Cancer Hx [...] 93.2 H, Lymph % (Auto) 4.7 L, Shawnee % (Auto) 0.2, Eos % (Auto) 0.0, [...] relate to congestion and edema. Reading Location: [facility] Assessment & Plan Assessment/Plan (1) Chest pain: [...] Cabezas MD Charges/Coding Visit Charges Inpatient E&M: 93073 Init Hosp L2 01/09/252004 <Electronically signed by Estrella Cabezas MD> Cosigner Signature (if applicable): CC: Dr. Fabricio Lemos MD; Dr. Estrella Cabezas MD~ Signed [facility] Work Phone: 1(363) 255-509604-25-[address] [facility] Medical Records Department [address] [place] [address] Progress Note - Hospitalist 01/09/252015 MR#: [id number] Acct: [id number] Name: BETSY RODRIGEZ Rep #:[id number] : 1955 69 From: Estrella Cabezas MD PCP: Dr. Fabricio Lemos MD Status :ADM FARIBA Location: [place] [address] Hospitalist Note BNP elevated, will give dose of Lasix 01/09/252016 Cosigner Signature (if applicable): CC: ~ Signed [facility]04-25-[address] [facility] Medical Records Department [address] [place] [address] H&P Exam - Hospitalist 01/09/25 193 MR#: [id number] Acct: [id number] Name: BETSY RODRIGEZ Rep #:[id number] : 1955 69 From: Estrella Cabezas MD PCP: Dr. 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 [facility] Medical History (Updated 01/09/25 @ 19:35 [...] Allergy prednisone AdvReac Other Verified 01/09/25 15:36 Ypbjsig-HMN-PdM Reductase AdvReac cramps Verified 01/09/25 15:36 Inhibitor (Dqwlamr-Vzc-Pot Reductase Inhibitor) Family History Mother Cancer Hx [...] 93.2 H, Lymph % (Auto) 4.7 L, Shaw[place] % (Auto) 0.2, Eos % (Auto) 0.0, [...] relate to congestion and edema. Reading Location: [facility] Assessment & Plan Assessment/Plan (1) Chest pain: [...] Cabezas MD Charges/Coding Visit Charges Inpatient E&M: 62160 Init Hosp L2 01/09/252004 Cosigner Signature (if applicable): CC: Dr. Fabricio Lemos MD; Dr. Estrella Cabezas MD~ Signed [facility]04-25-2025 Radiology Diagnostic study note [facility] Imaging Services [address] [place], [place] [id number] Chest 1 View (Portable) MR#: [id number] Acct: [id number] Name: BETSY RODRIGEZ Rep #: [id number] : 1955 F 69 From: Tasha Fajardo MD PCP: Dr. Fabricio Lemos MD Status: REG ER Study:Chest 1 View (Portable) Date of Exam: 01/09/25 Exam# [id number] Ordering Dr: Austin Mack MD EXAM: XR [...] relate to congestion and edema. Reading Location: [facility] CC: Dr. Austin Mack MD; Dr. Fabricio Lemos MD ~ [employer] Spot Picker: Signed [facility]03-31-2025 Telephone encounter Note* Telephone Encounter - Marta [...] Meadows RN December 15, 2024 9:14 AM [facility]03-31-2025 Miscellaneous Notes* Telephone Encounter - Marta [...] 15, 2024 9:14 AM [facility] Consult note Author Lennox Schaefer [facility] Note Date/Time December 12, 2024 12: 33pm [facility] Medical Records Department [address] [place] [address] Anesthesia Postop Eval II 12/12/24 1233 MR#: [id number] Acct: [id number] Name: BETSY RODRIGEZ Rep #:[id number] : 1955 69 From: Lennox Schaefer MD PCP: Dr. Fabricio Lemos MD Status :REG SDC Y Race: C Location: [place] [address] Anesthesia Postop Eval I Sum Postop Eval Completion status Anesthesia document: Postop Eval 1 completed: Yes Anesthesia Postop Eval I Summary Anesthesia Postop Eval I Summary: Anesthesia Postop Eval I: Assessment Summary Airway patent Yes 12/12/24 12:31 CLIP WRAPPER.TMEN Spontaneous unlabored No 12/12/24 12:31 CLIP WRAPPER.TMEN respirations Mental status nausea No 12/12/24 12:31 CLIP WRAPPER.TMEN Vomiting No 12/12/24 12:31 CLIP WRAPPER.TMEN Anesthesia Postop Eval I: Fluid Summary Crystalloid volume administer 500 12/12/24 12:31 CLIP WRAPPER.TMEN (ml) Colloids volume administered ( ml) Blood Product volume administered (ml) Total IV fluid infused 500 12/12/24 12:31 CLIP WRAPPER.TMEN Anesthesia Postop Eval I: Summary Notes Anesthesia Complication No 12/12/24 12:31 CLIP WRAPPER.TMEN Anesthesia Complication Comment: Post-operative progress note Anesthesia: Postop Eval II Evaluation Mental status: Awake Pain Level: 0 nausea: No Vomiting: No 12/12/24 1233 <Electronically signed by Lennox Schaefer MD > Date _ Lennox Schaefer MD Cosigner Signature: Date CC: ~ Signed [facility] Work Phone: 1(219) 815-479703-28-2025 Consult note Author [facility]minavid [facility] Note Date/Time December 12, 2024 [facility] [address] [place] [address] Anesthesia Postop Eval I 12/12/24 1230 MR#: [id number] Acct: [id number] Name: ELIABETSY Marta Rep #:[id number] : 1955 69 From: Nohemi khan CRNA PCP: Dr. Fabricio Lemos MD Status :REG [facility] Y Race: C Location: [place] [address] Anesthesia: Postop Eval I Current Vital Signs [...] 12/12/24 1231 <Electronically signed by Nohemi Perez ace CLIP WRAPPER> Date _ Nohemi Andres CLIP WRAPPER Cosigner Signature: Date CC: ~ Signed [facility] Work Phone: 1(309) 930-777803-28-2025 Discharge summary Author Yeimi Sorto [facility] Note Date/Time December 12, 2024 12: 24pm [facility] Medical Records Department [address] [place] [address] Instructions for Home/Discharge Instructions 12/12/24 1222 MR#: [id number] Acct: [id number] Name: BETSY RODRIGEZ Rep #:[id number] : 1955 69 From: Yeimi Sorto MD PCP: Dr. Fabricio Lemos MD Status :REG NVC Discharge Instructions Procedure Port-A-Cath Diet Discharge Diet: [...] Care Provider: Fabricio Lemos Instructions Print Language: Indian Discharge Orders/Prescriptions Prescriptions: Continued (DME) Disability Placard [...] CC: Dr. Fabricio Lemos MD ~ Signed [facility] Work Phone: 1(311) 603-368703-28-2025 History and physical note Author Yeimi [facility] Note Date/Time December 12, 2024 11: 40am [facility] Medical Records Department [address] [place] [address] History & Physical Exam 12/12/24 1138 MR#: [id number] Acct: [id number] Name: BETSY RODRIGEZ Rep #:[id number] : 1955 69 From: Yeimi Sorto MD PCP: Dr. Fabricio Lemos MD Status :[facility] Location: [place] [address] History and Physical Date of Admission: 12/12/24 Date of Service: 12/10/24 MR#: [id number] Acct: [id number] Name: BETSY RODRIGEZ Rep #: [id number] : 1955 Provider: Dr. Yeimi Sorto MD Age/Sex: 69/F Location: [facility] Status: Signed Intake Vital Signs 12/09/2509:45 12/09/2510:48 [...] Food Allergyprednisone Adverse Reaction (Verified 12/11/24 08:17) JeeklSwqxnab-MFW-EvN Reductase Inhibitor (Petlagx-Llx-Wfe Reductase Inhibitor) Adverse Reaction (Verified 12/11/24 08:17) [...] healthy appearing, comfortable and no acute distress [facility] Head: normocephalic and atraumatic Neck Neck: supple [...] no further questions. Yeimi Sorto M.D. Pager: [phone] [facility] [address] [place] [address], [facility], [address] [place] [address] Office: 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 12/12/24 1140<Electronically signed by Yeimi Sorto MD> Cosigner Signature (if applicable): cc: Dr. Fabricio Lemos MD; Dr. Yeimi Sorto MD ~* Signed [facility] Work Phone: 1(990) 605-693003-28-2025 Consult note Author Lennox Schaefer [facility] Note Date/Time December 12, 2024 11: [address] [place] [address] Medical Records Department [address] [place] [address] Pre-Anesthesia Evaluation 12/12/24 1113 MR#: [id number] Acct: [id number] Name: BETSY RODRIGEZ Rep #:[id number] : 1955 69 From: Lennox Schaefer MD PCP: Dr. Fabricio Lemos MD Status :REG SDC Y Race: C Location: [place] [address] ASA Classification* ASA Classification ASA Classification: 3 [...] 08/10/20 TSH 3.530 uIU/mL (0.300-4.200) 11/13/24 04:15 0204/10 COAG PT 14.2 SECONDS (11.7-14.9) 11/12/24 10:03 Pre-Assessment Diagnosis/Proposed Procedure Planned Operative Procedure(s): (R) Insertion, Vascular Port right poss left Anesthesia History Anesthesia History - content designer: Anesthesia History - content designer Hx Hospitalization Yes: 12-0912/11/24 08:45 Any Problems With Anesthesia No 12/11/24 [...] take am of surgery PONV PONV - content designer: PONV - content designer Female Yes 12/11/24 08:45 HX of Motion [...] 12/12/24 10:51 Respiratory Assessment Respiratory Assessment - content designer: Respiratory Tract Infection Hx - content designer Hx Respiratory Tract Infection No 12/11/24 08:45 STOP Sleep Apnea STOP Sleep Apnea - content designer: STOP Sleep Apnea - content designer Hx Hypertension Yes: MED 12/11/24 08:45 Hx [...] Tobacco Use History Tobacco Use History - content designer: Tobacco Use History - content designer Tobacco Use Smoking Status Former smoker 12/11/24 08:45 Hx Tobacco Use No 12/11/24 08:45 Years Smoking Packs Smoked per Day Smoking Cessation Date was Yes - quit smoking within 15 12/11/24 08:45 within the last 15 years years Hx Smoking Cessation Date 09/17/15 12/11/24 08:45 Hx Smoking Cessation No 12/11/24 08:45 Counseling Hematologic Medial History Hematologic Hx - content designer: 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 Hx of Blood Transfusion No 12/11/24 08:45 [...] confused, unrespo /Reproduction History /Reproductive History - content designer: /Reproductive Hx- content designer Hx Now No 12/11/24 08:45 Gestational Age [...] Allergy prednisone AdvReac Other Verified 12/12/24 10:47 Srjfbzt-VIE-RzK Reductase AdvReac cramps Verified 12/12/24 10:47 Inhibitor (Ylclbhc-Bob-Pho Reductase Inhibitor) Family History Mother Cancer Hx [...] MD Cosigner Signature: Date CC: ~ Signed [facility] Work Phone: 1(465) 372-787803-28-2025 Radiology Diagnostic study note [facility] Imaging Services [address] [place] [address] Chest 1 View (Portable) MR#: [id number] Acct: [id number] Name: BETSY RODRIGEZ Rep #: [id number] : 1955 F 69 From: Tasha Fajardo MD PCP: Dr. Fabricio Lemos MD Status: [facility] Study:Chest 1 View (Portable) Date of Exam: 12/12/24 Exam# [id number] Ordering Dr: Yeimi Sorto MD EXAM: XR [...] edema. Pneumonia cannot be excluded. Reading [facility] CC: Dr. Fabricio Lemos MD; Dr. Yeimi Sorto MD ~ Molded Goods Spot Picker: Signed [facility]03-28-[address] [facility] Medical Records Department [address] [place] [address] Operative Report 12/12/24 1219 MR#: [id number] Acct: [id number] Name: BETSY RODRIGEZ Rep #:[id number] : 1955 69 From: Yeimi Sorto MD PCP: Dr. Fabricio Lemos MD Status :[facility] Location: [place] [address] Operative Report (Standard) Operative Information Date of Procedure: 12/12/24 Pre-Operative Diagnosis: z45.2, lung cancer Post-Operative Diagnosis: Same Surgery/Procedure Performed: 1. Placement of right IJ Port-A-Cath 2. Use of fluoroscopy 3. Use of ultrasound copyright expert: No Type of Anesthesia: MAC/Supplemental RN Documented [...] details: Bard PowerPort isp M.R.I. 6Fr Lot [id number] Special Medications: Ancef 2 g IV x [...] needle trocar was removed. A small skin sonya was made with an 11 blade knife [...] Lemos MD; Dr. Yeimi Sorto MD~ Signed [facility]03-28-2025 Consult note [facility] Medical Records Department [address] [place] [address] Anesthesia Postop Eval II 12/12/24 1233 MR#: [id number] Acct: [id number] Name: BETSY RODRIGEZ Rep #:[id number] : 1955 69 From: Lennox Schaefer MD PCP: Dr. Fabricio Lemos MD Status :REG SDC Y Race: C Location: [place] [address] Anesthesia Postop Eval I Sum Postop Eval Completion status Anesthesia document: Postop Eval 1 completed: Yes Anesthesia Postop Eval I Summary Anesthesia Postop Eval I Summary: Anesthesia Postop Eval I: Assessment Summary Airway patent Yes 12/12/24 12:31 CLIP WRAPPER.TMEN Spontaneous unlabored No 12/12/24 12:31 CLIP WRAPPER.TMEN respirations Mental status nausea No 12/12/24 12:31 CLIP WRAPPER.TMEN Vomiting No 12/12/24 12:31 CLIP WRAPPER.TMEN Anesthesia Postop Eval I: Fluid Summary Crystalloid volume administer 500 12/12/24 12:31 CLIP WRAPPER.TMEN (ml) Colloids volume administered ( ml) Blood Product volume administered (ml) Total IV fluid infused 500 12/12/24 12:31 CLIP WRAPPER.TMEN Anesthesia Postop Eval I: Summary Notes Anesthesia Complication No 12/12/24 12:31 CLIP WRAPPER.TMEN Anesthesia Complication Comment: Post-operative progress note Anesthesia: Postop Eval II Evaluation Mental status: Awake Pain Level: 0 nausea: No Vomiting: No 12/12/24 1233 > Date _ Lennox Schaefer MD Cosigner Signature: Date CC: ~ Signed [facility]03-28-2025 Consult note [facility] Medical Records Department [address] [place] [address] Anesthesia Postop Eval I 12/12/24 1230 MR#: [id number] Acct: [id number] Name: ELIABETSY M Rep #:[id number] : 1955 69 From: Nohemi khan CLIP WRAPPER PCP: Dr. Fabricio Lemos MD Status :REG SDC Y Race: C Location: [place] [address] Anesthesia: Postop Eval I Current Vital Signs Temperature: 99.0 F Pulse Rate: 82 Blood Pressure: 109/58 Respiratory Rate: 20 Pulse Ox: 91 Assessment Airway patent: Yes Spontaneous unlabored respirations: No nausea: No Vomiting: No Anesthesia Complication: No Fluid Hydration Crystalloid volume administer (ml): 500 Total IV fluid infused: 500 Progress Note Anesthesia document: Postop Eval 1 completed: Yes 12/12/24 1231 meagan CLIP WRAPPER> Date _ Nohemi [place]ap[place] CLIP WRAPPER Cosigner Signature: Date CC: ~ Signed [facility]03-28-[address] [facility] Medical Records Department [address] [place] [address] Instructions for Home/Discharge Instructions 12/12/24 1222 MR#: [id number] Acct: [id number] Name: BETSY RODRIGEZ Rep #:[id number] : 1955 69 From: Yeimi Sorto MD PCP: Dr. Fabricio Lemos MD Status :REG [facility] Discharge Instructions Procedure Port-A-Cath Diet Discharge Diet: [...] Provider: Yeimi Sorto Primary Care Provider: Fabricio Lemso Instructions Print Language: Indian Discharge Orders/Prescriptions Prescriptions: Continued (DME) Disability Placard [...] CC: Dr. Fabricio Lemos MD ~ Signed [facility]03-28-[address] [facility] Medical Records Department [address] [place] [address] History & Physical Exam 12/12/24 1138 MR#: [id number] Acct: [id number] Name: BETSY RODRIGEZ Rep #:[id number] : 1955 69 From: Yeimi Sorto MD PCP: Dr. Fabricio Lemos MD Status :REG [facility] Location: [place] [address] History and Physical Date of Admission: 12/12/24 Date of Service: 12/10/24 MR#: [id number] Acct: [id number] Name: BETSY RODRIGEZ Rep #: [id number] : 1955 Provider: Dr. Yeimi Sorto MD Age/Sex: 69/F Location: [facility] Status: Signed Intake Vital Signs 12/09/2509:45 12/09/2510:48 [...] Food Allergyprednisone Adverse Reaction (Verified 12/11/24 08:17) MhzkjSnwprlz-DFH-OwH Reductase Inhibitor (Fyxsbqo-Brl-Lsu Reductase Inhibitor) Adverse Reaction (Verified 12/11/24 08:17) [...] healthy appearing, comfortable and no acute distress [facility] Head: normocephalic and atraumatic Neck Neck: supple [...] no further questions. Yeimi Sorto M.D. Pager: [phone] [facility] [address] [place] [address], [address] [place] [address] Office: [phone] Coding Level of Care Code Off vis,new,level [...] MD; Dr. Yeimi Sorto MD ~* Signed [facility]03-28-2025 [facility] Consult note [facility] Medical Records Department [address] [place], [place] [address] Pre-Anesthesia Evaluation 12/12/24 1113 MR#: [id number] Acct: [id number] Name: BETSY RODRIGEZ Rep #:[id number] : 1955 69 From: eLnnox Schaefer MD PCP: Dr. Fabricio Lemos MD Status :REG SDC Y Race: C Location: [place] [address] ASA Classification* ASA Classification ASA Classification: 3 [...] poss left Anesthesia History Anesthesia History - content designer: Anesthesia History - content designer Hx Hospitalization Yes: 12-0912/11/24 08:45 Any Problems With Anesthesia No 12/11/24 [...] take am of surgery PONV PONV - content designer: PONV - content designer Female Yes 12/11/24 08:45 HX of Motion [...] 12/12/24 10:51 Respiratory Assessment Respiratory Assessment - content designer: Respiratory Tract Infection Hx - content designer Hx Respiratory Tract Infection No 12/11/24 08:45 STOP Sleep Apnea STOP Sleep Apnea - content designer: STOP Sleep Apnea - content designer Hx Hypertension Yes: MED 12/11/24 08:45 Hx [...] Tobacco Use History Tobacco Use History - content designer: Tobacco Use History - content designer Tobacco Use Smoking Status Former smoker 12/11/24 08:45 Hx Tobacco Use No 12/11/24 08:45 Years Smoking Packs Smoked per Day Smoking Cessation Date was Yes - quit smoking within 15 12/11/24 08:45 within the last 15 years years Hx Smoking Cessation Date 09/17/15 12/11/24 08:45 Hx Smoking Cessation No 12/11/24 08:45 Counseling Hematologic Medial History Hematologic Hx - content designer: 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 Hx of Blood Transfusion No 12/11/24 08:45 [...] confused, unrespo /Reproduction History /Reproductive History - content designer: /Reproductive Hx- content designer Hx Now No 12/11/24 08:45 Gestational Age [...] Allergy prednisone AdvReac Other Verified 12/12/24 10:47 Ksydmat-SWK-VyD Reductase AdvReac cramps Verified 12/12/24 10:47 Inhibitor (Glwooir-Zfr-Kwe Reductase Inhibitor) Family History Mother Cancer Hx [...] MD Cosigner Signature: Date CC: ~ Signed [facility]03-10-2025 Evaluation note* Diagnosis Onset Date Resolution Status Admit Date 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 November 24 2:38pm Small cell lung cancer acute [facility] 2024 2:38pm 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 November 24, 2024 2:38pm 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 November 24, 2024 2:38pm 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 November 24, 2024 2:38pm Jaundice resolved November 24 2:38pm Bilateral lower extremity edema acut e December 02, 2024 12:19pm Small cell lung cancer acute [facility] 2024 12:19pm 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 December 02, 2024 12:19pm 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 December 02, 2024 12:19pm 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 December 02, 2024 12:19pm Jaundice resolved December 02 12:19pm Bilateral lower extremity edema acut e December 09, 2024 9:51am Small cell lung cancer acute [facility] 2024 9:51am 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 December 09, 2024 9:51am 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 December 09, 2024 9:51am 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 December 09, 2024 9:51am Encounter for insertion of venous access port acute December 10, 025 12:33pm 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 December 10 12:33pm Bilateral lower extremity edema acut e December 16, 2024 7:48am Encounter for chemotherapy management acute December 16, 2024 7:48am Internal hemorrhoids acute Apri l 2024 7:48am Small cell lung cancer acute Ap ril 2024 7:48am 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 December 16, 2024 7:48am 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 December 16, 2024 7:48am 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 December 16, 2024 7:48am Port-A-Cath in place acute Apri l 2024 1:00pm Bilateral lower extremity edema acut e December 29, 2024 12:42pm Internal hemorrhoids acute Apri l 2024 12:42pm Small cell lung cancer acute Ap ril 2024 12:42pm 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 December 29, 2024 12:42pm 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 December 29, 2024 12:42pm 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 December 29, 2024 12:42pm Small cell lung cancer acute Ap ril 2024 7:58am 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 January 06, 2025 7:58am 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 January 06, 2025 7:58am 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 January 06, 2025 7:58am Jaundice resolved January 06 7:58am Shortness of breath acute January 09, 2025 7:31pm Small cell lung cancer acute Ap ril 2024 7:31pm Chest pain resolved January 09 7:31pm Elevated troponin inactive December 172024 7:31pm 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 February 03, 2025 7:56am 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 February 032024 7:56am 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 January 162024 7:56am 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 February 03, 2025 7 :56am Jaundice resolved February 03, 2025 7:56am 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 February 24 7:52am 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 February 152024 7:52am 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 February 24, 2025 7:52am 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 Author [...] have bilateral upper abdominal pain up to 10/10, nausea, loss of appetite, watery/loose diarrhea with 4-6 episodes per day, BRBRP with blood on TP, 4 lb weight loss in last week. States she feels warmer today than normal. Eating only 1 small meal per day. Taking zofran for nausea and imodium for diarrhea which is not helping. Has Madison for her back which she has been taking for her abdominal pain without much improvement. Needing to take Madison more than prescribed. Past medical history, appointments, medications, allergies reviewed. Previous Medical History PAST MEDICAL HISTORY Diagnosis Date Anxiety with depression Chronic back pain Chronic kidney disease (CKD), stage III (moderate) (HCC) Colon polyp tubular adenoma [address] 07/16 to 08/17 DDD (degenerative disc [...] cyst removal from eyelids TONSILLECTOMY HX 195 Family History FAMILY HISTORY Problem Relation Age of Onset Cancer Mother lung Hypertension Mother Cancer Father lung No Known Problems Sister Cancer Brother lung No Known Problems Brother No Known Problems Brother Stroke Maternal Grandmother or [place], patient unsure Coronary Artery Disease Maternal Grandfather Alcohol abuse Paternal Grandfather Patient Allergies ALLERGIES Allergen Reactions Meagan Inhibitors Rash Codeine Vomiting, Other: See Comments Headache Remeron [Mirtazapin* Other: See Comments Fatigue Klgmyth-Awg-Ojt Red* Myalgia [place] Unknown Zetia [Ezetimibe] Myalgia Current Medications Current [...] not taking: Reported on 11/05/2024) mv,jaci,iron,mn/folic acid/chol (LAZW-AQXO-HRKVE, PABA, ORAL) Take 1 tablet by mouth once daily. (Patient not taking: Reported on 08/22/2022) Minoxidil 2 % external solution Apply 1 mL to affected area twice daily. No current facility-administered medications on file prior to visit. Social History Social History Tobacco Use Smoking status: Former Current packs/day: 0.00 Average packs/day: 1 pack/d (more content not included)...[facility]02-26-2025 History of Present illness Narrative* Girish [...] have bilateral upper abdominal pain up to 10/10, nausea, loss of appetite, watery/loose diarrhea with 4-6 episodes per day, BRBRP with blood on TP, 4 lb weight loss in last week. States she feels warmer today than normal. Eating only 1 small meal per day. Taking zofran for nausea and imodium for diarrhea which is not helping. Has Madison for her back which she has been taking for her abdominal pain without much improvement. Needing to take Madison more than prescribed. Past medical history, appointments, medications, allergies reviewed. Previous Medical History PAST MEDICAL HISTORY Diagnosis Date Anxiety with depression Chronic back pain Chronic kidney disease (CKD), stage III (moderate) (HCC) Colon polyp tubular adenoma [address] 07/16 to 08/17 DDD (degenerative disc [...] Known Problems Brother Stroke Maternal Grandmother or SC, patient unsure Coronary Artery Disease Maternal Grandfather Alcohol abuse Paternal Grandfather Patient Allergies ALLERGIES Allergen Reactions Meagan Inhibitors Rash Codeine Vomiting, Other: See Comments Headache Remeron [Mirtazapin* Other: See Comments Fatigue Znueubm-Zhc-Mwc Red* Myalgia [place] Unknown Zetia [Ezetimibe] Myalgia Current Medications Current [...] not taking: Reported on 11/05/2024) mv,jaci,iron,mn/folic acid/chol (OXNT-MFBP-KKSRF, PABA, ORAL) Take 1 tablet by mouth [...] diagnosis) Patient with worsening abdominal pain despite Madison, diarrhea uncontrolled with OTC meds, nausea uncontrolled with zofran. Appears dehydrated. Losing weight. All likely 2/2 cancer of unknown origin. Discussed evaluation through ER with admission to help control pain, give her IV fluids, and ideallyget biopsies to determine cause for her cancer. Agreeable to ER evaluation through [facility]. Called and gave report to ER physician. Advised if they discharge her home without admission, [facility]. Records sent with patient. to drive her [...] which included preparing to see the patient, rmyb-vv-stwd patient care, completing clinical documentation, obtaining and/or reviewing separately obtained history, performing a medically appropriate examination, counseling and educating the pat ient/family/caregiver, and ordering medications, tests, or procedures. Girish Lemos MD documented in [facility] Telephone encounter Note * Telephone Encounter - Jen Briggs - 11/05/2024 1:56 PM EST RECOMMENDATION/PLAN: 1. Recommend biopsy of liver. Patient wants to think about it, she' ll call or MyChart if she decides to proceed as recommended [facility] Work Phone: 1(825) 650-506202-19-2025 Miscellaneous Notes* Telephone Encounter - Jen Briggs - 11/05/2024 1:56 PM EST RECOMMENDATION/PLAN: 1. Recommend biopsy of liver. Patient wants to think about it, she' ll call or MyChart if she decides to proceed as recommended documented in this encounterShelby [facility] Hospital02-19-2025 NoteHNO ID: [id number] Author: SILAS ROBBINS MD Service: ? 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 Johnson Dysphagia Dr. Stiles Ectopic 1991 GERD (gastroesophageal reflux disease) History of prediabetes Hyperlipidemia Hypertension Hypothyroidism Obesity (BMI 30.0-34.9) Other pulmonary embolism without acute cor pulmonale (HCC) Pneumonia due to [place] [id number] virus Requiring intubation PAST SURGICAL HISTORY Procedure [...] Known Problems Brother Stroke Maternal Grandmother or SC, patient unsure Coronary Artery Disease Maternal Grandfather [...] Headache Remeron [Mirtazapin* Other: See Comments Fatigue Cyglzff-Maq-Vkb Red* Myalgia [place] Unknown Zetia [Ezetimibe] Myalgia CURRENT OUTPATIENT MEDICATIONS: [...] not taking: Reported on 11/05/2024) mv,jaci,iron,mn/folic acid/chol (OXYD-LJMH-GIIWV, PABA, ORAL) Take 1 tablet by mouth [...] which included preparing to see the patient, ycmd-dt-ytjg patient care, completing clinical documentation, obtaining and/or reviewing separately obtained history, counseling and educ (more content not included)...[facility] 11-05-2024 History of Present illness Narrative* [...] 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 Johnson Dysphagia Dr. Stiles Ectopic 1991 GERD (gastroesophageal reflux disease) History of prediabetes Hyperlipidemia Hypertension Hypothyroidism Obesity (BMI 30.0-34.9) Other pulmonary embolism without acute cor pulmonale (HCC) Pneumonia due to COVID-19 virus Requiring intubation PAST SURGICAL HISTORY Procedure [...] Known Problems Brother Stroke Maternal Grandmother or SC, patient unsure Coronary Artery Disease Maternal Grandfather [...] Headache Remeron [Mirtazapin* Other: See Comments Fatigue Szwsnbd-Jty-Adl Red* Myalgia [place] Unknown Zetia [Ezetimibe] Myalgia CURRENT OUTPATIENT MEDICATIONS: [...] not taking: Reported on 11/05/2024) mv,jaci,iron,mn/folic acid/chol (DZYP-BSGE-ANQPE, PABA, ORAL) Take 1 tablet by mouth [...] which included preparing to see the patient, zsjs-bf-zsne patient care, completing clinical documentation, obtaining and/or reviewing separately obtained history, counseling and educating the patient/family/caregiver, communicating with other HCPs (not separately reported), independently interpreting results (not separately reported), and communicating results to the patient/family/caregiver. Reviewed images. Electronically Signed: Silas Robbins MD November 05, 2024 8:52 AM documented in this encounterShelby [facility] Hospital02-18-2025 Telephone encounter Note * Telephone Encounter - Krystin Zimmerman LPN - 11/04/2024 5:02 PM EST Scan on 11/04/2024 1:33 PM by Provider, MU Shankar: Consultation - Pulmonary [facility]02-18-2025 Miscellaneous Notes* Telephone Encounter - Krystin Zimmerman LPN - 11/04/2024 5:02 PM EST Scan on 11/04/2024 1:33 PM by Provider, EDE ShankarC: Consultation - Pulmonary * Telephone Encounter - [...] 12:16 PM EST Roxann Gomez [facility] calls and is requesting PCP to call her back about patient. Terri Dowell RN documented in this encounterShelby [facility]02-18-2025 Telephone encounter Note * Telephone Encounter [...] to Dr. Robbins to review as RAO. [facility]02-18-2025 Telephone encounter Note* Telephone Encounter - Girish Lemos MD - 11/04/2024 12:26 PM EST Call is going to directly voicemail. Will call back after seeing next patient. [facility]02-18-2025 Telephone encounter Note* Telephone Encounter - Terri Dowell RN - 11/04/2024 12:16 PM EST Roxann Gomez, [facility] calls and is requesting PCP to call her back about patient. Terri Dowell, RN [facility]02-17-2025 Telephone encounter Note* Telephone Encounter - Joyce Cisneros LPN - 11/03/2024 2:38 PM EST After speaking to Dr. Lee regarding this patient's records, I spoke with the patient and she decided to keep the appointment as scheduled with Dr. Robbins as to not delay her care. Joyce Cisneros LPN [facility]02-17-2025 Miscellaneous Notes* Telephone Encounter - Joyce [...] reschedule after patient has pet scan at [facility]. Daughter states wait until results from Pet scan and then patient will reschedule. documented in this encounterShelby [facility]02-17-2025 Telephone encounter Note * Telephone Encounter [...] reschedule after patient has pet scan at [facility]. Daughter states wait until results from Pet scan and then patient will reschedule. [facility] Work Phone: 1(294) 761-435102-17-2025 Evaluation note* Diagnosis Onset Date Resolution Status Admit Date Mediastinal mass acute November 03, 2024 11:20am Hypoxia chronic November 03, 2024 11:20am ARMANDO (obstructive sleep apnea) chroni c November 03, 2024 11:20am Pulmonary hypertension chronic bruaustin 2024 11:20am Smoking greater than 40 pack years chronic November 03, 2 025 11:20am Elevated LFTs acute November 122024 12:58pm Elevated lipase acute November 12, 2024 12:58pm Epigastric pain acute November 12, 2024 12:58pm Intractable abdominal pain acute November 12, 2024 12:58pm Metastasis to liver acute Febru 2024 12:58pm [facility] Work Phone: 1(215) 872-137802-17-2025 Evaluation note* Diagnosis Onset Date Resolution Status Admit Date Hypoxia chronic November 03, 2024 11:20am ARMANDO (obstructive sleep apnea) chroni c November 03, 2024 11:20am Pulmonary hypertension chronic [facility] 2024 11:20am Smoking greater than 40 pack years chronic November 03 025 11:20am Mediastinal mass deleted November 03, 2024 11:20am Epigastric pain acute November 12, 2024 12:58pm Intractable abdominal pain acute November 12, 2024 12:58pm Metastasis to liver acute Febru 2024 12:58pm Elevated LFTs deleted November 122024 12:58pm Elevated lipase deleted November 12, 2024 12:58pm 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 November 24 2:38pm Jaundice acute November 24 2:38pm Metastasis to bone acute November 24, 2024 2:38pm Metastasis to liver acute November 24, 2024 2:38pm Regional lymph node metastas is present acute November 24, 2024 2:38pm Small cell lung cancer acute [facility] 2024 2:38pm Bilateral lower extremity edema acut e December 02, 2024 12:19pm Jaundice acute December 02 12:19pm Metastasis to bone acute December 02, 2024 12:19pm Metastasis to liver acute December 02, 2024 12:19pm Regional lymph node metastas is present acute December 02, 2024 12:19pm Small cell lung cancer acute [facility] 2024 12:19pm Bilateral lower extremity edema acut e December 09, 2024 9:51am Metastasis to bone acute December 09, 2024 9:51am Metastasis to liver acute December 09, 2024 9:51am Regional lymph node metastas is present acute December 09, 2024 9:51am Small cell lung cancer acute [facility] 2024 9:51am Encounter for insertion of venous access port acute December 10, 025 12:33pm 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 December 10 12:33pm [facility] Work Phone: 1(384) 565-209902-17-2025 Evaluation note* Diagnosis Onset Date Resolution Status [...] 2024 12:58pm Metastasis to liver acute Febru [email or web address] 12:58pm Elevated LFTs deleted November 122024 12:58pm Elevated lipase deleted November 12, 2024 12:58pm 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 November 24 2:38pm Metastasis to bone acute November 24, 2024 2:38pm Metastasis to liver acute November 24, 2024 2:38pm Regional lymph node metastas is present acute November 24, 2024 2:38pm Small cell lung cancer acute [facility] 2024 2:38pm Jaundice resolved November 24 2:38pm Bilateral lower extremity edema acute December 02, 2024 12:19pm Metastasis to bone acute December 02, 2024 12:19pm Metastasis to liver acute December 02, 2024 12:19pm Regional lymph node metastas is present acute December 02, 2024 12:19pm Small cell lung cancer acute [facility] 2024 12:19pm Jaundice resolved December 02 12:19pm Bilateral lower extremity edema acute December 09, 2024 9:51am Metastasis to bone acute December 09, 2024 9:51am Metastasis to liver acute December 09, 2024 9:51am Regional lymph node metastas is present acute December 09, 2024 9:51am Small cell lung cancer acute [facility] 2024 9:51am Encounter for insertion of venous access port acute December 10, 2 025 12:33pm High grade neuroendocrine carcinoma of [...] lung cancer acute Ap ril 2024 7:31pm [facility] Work Phone: 1(973) 167-467602-17-2025 Evaluation note* Diagnosis Onset Date Resolution Status [...] 2:38pm Small cell lung cancer acute [facility] 2024 2:38pm Jaundice resolved November 24 2:38pm Bilateral lower extremity edema acute December 02, 2024 12:19pm Metastasis to bone acute December 02, 2024 12:19pm Metastasis to liver acute December 02, 2024 12:19pm Regional lymph node metastas is present acute December 02, 2024 12:19pm Small cell lung cancer acute [facility] 2024 12:19pm Jaundice resolved December 02 12:19pm Bilateral lower extremity edema acute December 09, 2024 9:51am Metastasis to bone acute December 09, 2024 9:51am Metastasis to liver acute December 09, 2024 9:51am Regional lymph node metastas is present acute December 09, 2024 9:51am Small cell lung cancer acute [facility] 2024 9:51am Encounter for insertion of venous access port acute December 10, 2 025 12:33pm High grade neuroendocrine carcinoma of [...] 7:48am Small cell lung cancer acute Ap 2024 7:48am Port-A-Cath in place acute Apri [...] lung cancer acute Ap ril 2024 7:31pm Chest pain resolved January 09 7:31pm Elevated troponin inactive December 172024 7:31pm 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 February 03, 2025 7:56am Metastasis to bone acute February 032024 7:56am Metastasis to liver acute January 162024 7:56am Regional lymph node metastas is present acute February 03, 2025 7 :56am Jaundice resolved February 03, 2025 7:56am [facility] Work Phone: 1(658) 422-523102-17-2025 Evaluation note* Diagnosis Onset Date Resolution Status [...] November 12, 2024 12:58pm 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 Febru dacia 2024 12:58pm Elevated LFTs deleted November 122024 12:58pm Elevated lipase deleted November 12, 2024 12:58pm 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 November 24 2:38pm Small cell lung cancer acute [facility] 2024 2:38pm 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 November 24, 2024 2:38pm 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 November 24, 2024 2:38pm 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 November 24, 2024 2:38pm Jaundice resolved November 24 2:38pm Bilateral lower extremity edema acute December 02, 2024 12:19pm Small cell lung cancer acute [facility] 2024 12:19pm 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 December 02, 2024 12:19pm 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 December 02, 2024 12:19pm 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 December 02, 2024 12:19pm Jaundice resolved December 02 12:19pm Bilateral lower extremity edema acute December 09, 2024 9:51am Small cell lung cancer acute [facility] 2024 9:51am 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 December 09, 2024 9:51am 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 December 09, 2024 9:51am 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 December 09, 2024 9:51am Encounter for insertion of venous access port acute December 10 12:33pm 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 December 10 12:33pm Bilateral lower extremity edema acute December 16, 2024 7:48am Encounter for chemotherapy management acute December 16, 2024 7:48am Internal hemorrhoids acute Apri l 2024 7:48am Small cell lung cancer acute Ap ril 2024 7:48am 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 December 16, 2024 7:48am 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 December 16, 2024 7:48am 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 December 16, 2024 7:48am Port-A-Cath in place acute Apri l 2024 1:00pm Bilateral lower extremity edema acute December 29, 2024 12:42pm Internal hemorrhoids acute Apri l 2024 12:42pm Small cell lung cancer acute Ap ril 2024 12:42pm 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 December 29, 2024 12:42pm 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 December 29, 2024 12:42pm 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 December 29, 2024 12:42pm Small cell lung cancer acute Ap ril 2024 7:58am 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 January 06, 2025 7:58am 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 January 06, 2025 7:58am 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 January 06, 2025 7:58am Jaundice resolved January 06 7:58am Shortness of breath acute January 09, 2025 7:31pm Small cell lung cancer acute Ap 2024 7:31pm Chest pain resolved January 09 7:31pm Elevated troponin inactive December 172024 7:31pm 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 February 03, 2025 7:56am 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 February 032024 7:56am 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 January 162024 7:56am 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 February 03, 2025 7 :56am Jaundice resolved February 03, 2025 7:56am 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 February 24 7:52am 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 February 152024 7:52am 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 February 24, 2025 7:52am 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 February 24, 2025 7:52am [facility] Work Phone: 1(944) 449-101302-14-2025 Telephone encounter Note* Telephone Encounter - Delmis Park PSS - 10/31/2024 4:04 PM EST 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 Pt has an apt on 11-21-24 at [facility] with Pulmonology. Pt is trying to get this moved up. Please advise pt when the disk is done. Chacho Ambriz LPN documented in this encounterShelby [facility] Hospital02-14-2025 Telephone encounter Note * Telephone Encounter - Jen Briggs - 10/31/2024 2:36 PM EST Appointment scheduled. [facility] Work Phone: 1(162) 634-478602-14-2025 Miscellaneous Notes* Telephone Encounter - Jen Briggs [...] Please review and advise. documented in this encounterShelby [facility] Hospital02-14-2025 Telephone encounter Note * Telephone Encounter - Joyce Cisneros LPN - 10/31/2024 2:13 PM EST PSS- please schedule patient with Dr. Robbins on 11/05/2024 @ 9:00. Patient knows to arrive at 8:30. She is aware of the appointment. Joyce Cisneros LPN [facility]02-14-2025 Telephone encounter Note* Telephone Encounter - Chacho Ambriz LPN - 10/31/2024 12:10 PM EST Pt called to request a copy of the disk for the CT of chest pt had done 10/30/24. Pt has an apt on 11-21-24 at [facility] with Pulmonology. Pt is trying to get this moved up. Please advise pt when the disk is done. Chacho Ambriz LPN [facility]02-14-2025 Telephone encounter Note* Telephone Encounter - Lizzy Watson - 10/31/2024 9:19 AM EST Patient scheduled consultation with hepatology on 12/26/24 and has been added to wait list. Patient declined to schedule with provider's that had sooner availability due to distance to facilities. Routing message to CC Iram Fidel/Onc to assist patient with scheduling oncology referral. [facility]02-14-2025 Miscellaneous Notes* Telephone Encounter - Lizzy Watson - 10/31/2024 9:19 AM EST Patient scheduled consultation with hepatology on 12/26/24 and has been added to wait list. Patient declined to schedule with provider's that had sooner availability due to distance to facilities. Routing message to CC Iram Fidel/Onc to assist patient with scheduling oncology referral. * Telephone Encounter - Marta Meadows RN - 10/31/2024 9:12 AM EST Patient returned call and given provider's message regarding CT scan results. Patient agreeable to schedule with business operations analyst. 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 Faxed CT results and demographics to [facility] pulmonology per patient request. documented in this encounterShelby Memorial Hospital02-14-2025 Telephone encounter Note * Telephone Encounter - Marta Meadows RN - 10/31/2024 9:12 AM EST Patient returned call and given provider's message regarding CT scan results. Patient agreeable to schedule with business operations analyst. 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 Faxed CT results and demographics to [facility] pulmonology per patient request. [facility]02-14-2025 Telephone encounter Note* Telephone Encounter - Joyce Cisneros LPN - 10/31/2024 8:55 AM EST Left message for patient to contact office. PSS- please offer her a new patient appointment TODAY with Dr. Hansen @ 10:30 or 1:00. Joyce Cisneros LPN [facility]02-13-2025 Telephone encounter Note* Telephone Encounter - Joyce Cisneros LPN - 10/30/2024 4:[address] chest results from 10/30/2024- IMPRESSION: 1. Irregular left upper lobe perihilar mass which could represent a primary lung malignancy or metastatic lesion 2. Mediastinal and left hilar lymphadenopathy CT abd/pel from 10/16/2024- Numerous bilobar hepatic masses Being referred by Dr. Lemos. No biopsy yet. Joyce Cisneros LPN [facility]02-13-2025 Telephone encounter Note* Telephone Encounter - [...] received and PCP advises. Poonam Denise RN [facility]02-13-2025 Miscellaneous Notes* Telephone Encounter - Poonam [...] advises. Poonam Denise RN documented in this encounterShelby Memorial Hospital02-13-2025 History of Present illness Narrative* Reef Viridiana Swanson, RT(R) - 10/30/2024 8:00 AM EST Radiology [...] PATIENT PRESENTS WITH AN IMPLANTABLE OR ATTACHED SENIOR ASP NET DEVELOPER: No ALLERGIES: Reviewed and unchanged CONTRAST ALLERGY: [...] 2024 TIME: 12:42 PM documented in this encounterShelby Memorial Hospital02-13-2025 NoteHNO ID: [id number] Author: VIRIDIANA TORRES RT (R) Service: ? Author Type: Trend Investigator Type: Progress Notes Filed: 10/30/2024 12:42 Note [...] PATIENT PRESENTS WITH AN IMPLANTABLE OR ATTACHED SENIOR ASP NET DEVELOPER: No ALLERGIES: Reviewed and unchanged CONTRAST ALLERGY: [...] DEPARTMENT: CT; Exam(s) Completed: Chest SIGNATURE: RT Levar(R) PATIENT NAME: Betsy Rodrigez DATE: October 30, 2024 TIME: 12:42 [facility]02-10-2025 Telephone encounter Note* Telephone Encounter - Joyce Cisneros LPN - 10/27/2024 9:[address] chest scheduled for 10/30/2024. Joyce Cisneros LPN [facility]02-05-2025 Telephone encounter Note* Telephone Encounter - Phylicia Heredia RN - 10/22/2024 3:19 PM EST Patient calls upset that the CT scan of her chest order has been cancelled four times. Patient requests order be sent to [facility] to see if they can see her any sooner that [facility]. Faxed per request to [phone]. Submitted PA to [employer] and Lori. Phylicia Heredia RN [facility]02-05-2025 Miscellaneous Notes* Telephone Encounter - Phylicia Heredia RN - 10/22/2024 3:19 PM EST Patient calls upset that the CT scan of her chest order has been cancelled four times. Patient requests order be sent to [facility] to see if they can see her any sooner that [facility]. Faxed per request to [phone]. Submitted PA to [employer] and [facility]ori. Phylicia Heredia RN documented in this encounterShelby Memorial Hospital02-05-2025 Telephone encounter Note * Telephone Encounter - Joyce Cisneros LPN - 10/22/2024 10:31 AM EST D/T CT machine being down, CT chest rescheduled to 10/22/2024. Joyce Cisneros LPN [facility]02-03-2025 Telephone encounter Note* Telephone Encounter - Mae Wong MA - 10/20/2024 10:40 AM EST Pt notified of results via [employer]. Mae Wong Ma [facility]02-03-2025 Miscellaneous Notes* Telephone Encounter - Mae Wong MA - 10/20/2024 10:40 AM EST Pt notified of results via [employer]. Mae Wong Ma * Telephone Encounter - Oleg Fields APRN.DIE POLISHER - 10/20/2024 10:20 AM EST Please let [...] ordered follow up labs. documented in this encounterShelby [facility] Hospital02-03-2025 Telephone encounter Note * Telephone Encounter - Oleg Fields APRN.CNP - 10/20/2024 10:20 AM EST Please let patient know her hepatitis panel is negative. [facility]02-03-2025 Telephone encounter Note* Telephone Encounter - Mae Wong MA - 10/20/2024 10:11 AM EST Pt notified of results via Emberhart. Mae Wong Ma [facility]02-03-2025 Miscellaneous Notes* Telephone Encounter - Mae Wong MA - 10/20/2024 10:11 AM EST Pt notified of results via Emberhart. Mae Wong Ma * Telephone Encounter - Mae Wong MA - 10/20/2024 10:10 AM EST ----- Message from Girish Lemos MD sent at 10/19/2024 2:20 PM EST ----- Normal alpha fetoprotein level. Follow up with CT chest and referrals as discussed in office. documented in [facility] encounterS[facility] Telephone encounter Note * Telephone Encounter - Mae Wong MA - 10/20/2024 10:10 AM EST ----- Message from Girish Lemos MD sent at 10/19/2024 2:20 PM EST ----- Normal alpha fetoprotein level. Follow up with CT chest and referrals as discussed in office. [facility]02-03-2025 Telephone encounter Note* Telephone Encounter - Joyce Cisneros LPN - 10/20/2024 8:34 AM EST Scheduled for CT chest today to find primary. Will need biopsy. Joyce Cisneros LPN [facility]02-03-2025 Telephone encounter Note* Telephone Encounter - Jyotsna Bender - 10/20/2024 8:29 AM EST Patient has consult to Oncology that needs to be scheduled. DX: Liver Masses Insurance: MMO Medicare Advantage HMO Referred by: Girish Lemos MD Please review and advise. [facility]02-02-2025 Telephone encounter Note* Telephone Encounter - Girish Lemos MD - 10/19/2024 1:52 PM EST Thank you. [facility]02-02-2025 Miscellaneous Notes* Telephone Encounter - Girish Lemos MD - 10/19/2024 1:52 PM EST Thank you. * Telephone Encounter - Lennox Bellamy MSW - 10/17/2024 3:50 PM EST Sw spoke with patient regarding transportation needs. Patient reports that she does live in [place]. Her spouse takes her to doctor appts, he is just not able to drive early in the morning or late at night, due to vision issues. Patient reports I do think that my Medicare Advantage plan has transportation. Patient will giveher insurance a call to discuss transportation and see if she has that as a benefit. Patient and Sw also discussed [facility] [place]. Sw provided patient with the number for [employer]. [facility] coordinates local [facility] in [place] to address needs of residents. Patient notes that she will check with [employer] if insurance is unable to provide transportation assistance. Sw also provided patient with direct number and discussed other needs ie home care, home delivered meals, financial assistance needs that Sw could help with linking to resources. Patient thanked SW for call and will let Sw know if she has any further needs. documented in this encounterShel[facility]01[facility] Telephone encounter Note * Telephone Encounter - Lennox Bellamy MSW - 10/17/2024 3:50 PM EST Sw spoke with patient regarding transportation needs. Patient reports that she does live in [place]. Her spouse takes her to doctor appts, he is just not able to drive early in the morning or late at night, due to vision issues. Patient reports I do think that my Medicare Advantage plan has transportation. Patient will giveher insurance a call to discuss transportation and see if she has that as a benefit. Patient and Sw also discussed [facility] [place]. Sw provided patient with the number for [facility]. [facility] [place] to address needs of residents. Patient notes that she will check with [facility] if insurance is unable to provide transportation assistance. Jun also provided patient with direct number and discussed other needs ie home care, home delivered meals, financial assistance needs that Sw could help with linking to resources. Patient thanked JUN for call and will let Sw know if she has any further needs. [facility]01-31-2025 NoteHNO ID: [id number] Author: GIRISH LEMOS MD Service: ? Author [...] pain, currently 5/10. Treating at home with [place] which Dr. 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 Johnson Dysphagia Dr. Stiles Ectopic 1991 GERD (gastroesophageal reflux disease) History of prediabetes Hyperlipidemia Hypertension Hypothyroidism Obesity (BMI 30.0-34.9) Other pulmonary embolism without acute cor pulmonale (HCC) Pneumonia due to [facility] virus Requiring intubation Previous Surgical History PAST [...] Cancer Brother lung Stroke Maternal Grandmother or SC, patient unsure Coronary Artery Disease Maternal Grandfather No Known Problems Sister Patient Allergies ALLERGIES Allergen Reactions Meagan Inhibitors Rash Codeine Vomiting, Other: See Comments Headache Remeron [Mirtazapin* Other: See Comments Fatigue Suwsxwi-Ynp-Glm Red* Myalgia [place] Unknown Zetia [Ezetimibe] Myalgia Current Medications Current [...] once for 1 dose.N (more content not included)...[facility]01-31-2025 History of Present illness Narrative* Girish [...] RUQ pain, currently 5/10. Treating at homewith [place] which Dr. 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 Johnson Dysphagia Dr. Stiles Ectopic 1991 GERD (gastroesophageal reflux disease) History of prediabetes Hyperlipidemia Hypertension Hypothyroidism Obesity (BMI 30.0-34.9) Other pulmonary embolism without acute cor pulmonale (HCC) Pneumonia due to [facility]- virus Requiring intubation Previous Surgical History PAST [...] Cancer Brother lung Stroke Maternal Grandmother or SC, patient unsure Coronary Artery Disease Maternal Grandfather No Known Problems Sister Patient Allergies ALLERGIES Allergen Reactions Meagan Inhibitors Rash Codeine Vomiting, Other: See Comments Headache Remeron [Mirtazapin* Other: See Comments Fatigue Vszrlos-Wif-Xuy Red* Myalgia [place] Unknown Zetia [Ezetimibe] Myalgia Current Medications Current [...] designated per enteric contrast guidelines mv,jaci,iron,mn/folic acid/chol (SHUD-UYHT-WQLRB, PABA, ORAL) Take 1 tablet by mouth [...] Abs Lymph 1.00 - 4.00 k/uL 1.31 Shawnee% % 13.9 Abs Shawnee <0.87 k/uL 0.66 Eosin% % 1.7 Abs [...] which included preparing to see the patient, fajf-ov-rlpz patient care, completing clinical documentation, obtaining and/or reviewing separately obtained history, performing a medically appropriate examination, counseling and educating the pat ient/family/caregiver, and ordering medications, tests, or procedures. Girish Lemos MD documented in this encounterShel[facility]01[facility] Telephone encounter Note * Telephone Encounter - Arin Muñoz MA - 10/16/2024 3:00 PM EST Pt notified and scheduled for a follow up tomorrow Arin Muñoz MA [facility]01-30-2025 Telephone encounter Note* Telephone Encounter - Oleg Fields APRN.CNP - 10/16/2024 1:33 PM EST Please call patient and schedule follow up with Dr. Lemos for tomorrow to discuss results and care plan. Also let patient know I have ordered follow up labs. [facility]01-30-2025 NoteHNO ID: [id number] Author: OLEG FIELDS APRN.CNP Service: ? 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 Johnson Dysphagia Dr. Stiles Ectopic 1991 GERD (gastroesophageal reflux disease) History of prediabetes Hyperlipidemia Hypertension Hypothyroidism Obesity (BMI 30.0-34.9) Other pulmonary embolism without acute cor pulmonale (HCC) Pneumonia due to [facility]- virus Requiring intubation Previous Surgical History PAST [...] Cancer Brother lung Stroke Maternal Grandmother or SC, patient unsure Coronary Artery Disease Maternal Grandfather No Known Problems Sister Patient Allergies ALLERGIES Allergen Reactions Meagan Inhibitors Rash Codeine Vomiting, Other: See Comments Headache Remeron [Mirtazapin* Other: See Comments Fatigue Eqkkrdd-Oed-Zff Red* Myalgia [place] Unknown Zetia [Ezetimibe] Myalgia Current Medications Current [...] hours as needed for pain. 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 Johnson Dysphagia Dr. Stiles Ectopic 1991 GERD (gastroesophageal reflux disease) History of prediabetes Hyperlipidemia Hypertension Hypothyroidism Obesity (BMI 30.0-34.9) Other pulmonary embolism without acute cor pulmonale (HCC) Pneumonia due to [facility]- virus Requiring intubation Previous Surgical History PAST [...] cyst removal from eyelids TONSILLECTOMY HX 195 Family History FAMILY HISTORY Problem Relation Age of Onset Cancer Mother lung Hypertension Mother Cancer Father lung Cancer Brother lung Stroke Maternal Grandmother or SC, patient unsure Coronary Artery Disease Maternal Grandfather No Known Problems Sister Patient Allergies ALLERGIES Allergen Reactions Meagan Inhibitors Rash Codeine Vomiting, Other: See Comments Headache Remeron [Mirtazapin* Other: See Comments Fatigue Vvohsmw-Eie-Nxw Red* Myalgia [place] Unknown Zetia [Ezetimibe] Myalgia Current Medications Current [...] hours as needed for pain. mv,jaci,iron,mn/folic acid/chol (MSCT-SAUO-RVKOD, PABA, ORAL) Take 1 tablet by mouth [...] IV CONTRAST (RADIOLOGY PROCEDURE) - NOT ON NOV - ENTERIC CONTRAST (RADIOLOGY PROCEDURE) - NOT ON NOV 2. Diarrhea, unspecified type - ICD9: 787.91, ICD10: R19.7 - CT ABD/PEL W IVCON 3. Nausea - ICD9: 787.02, ICD10: R11.0 - CT ABD/PEL W IVCON Oleg Fields APRN.DIE POLISHER documented in this encounterShelby [facility] Hospital01-29-[facility]25 Telephone encounter Note * Telephone Encounter [...] pain, vomiting Protocols used: Abdominal Pain - Plqcjp-QWFDD-RR [facility]01-29-2025 Miscellaneous Notes* Telephone Encounter - Phylicia [...] pain, vomiting Protocols used: Abdominal Pain - Jftjfl-GCOFD-DG documented in this encounterShelby [facility] Hospital01-03-2025 NoteHNO ID: [id number] Author: GIRISH LEMOS MD Service: ? Author Type: Physician Type: Progress Notes Filed: 09/19/2024 13:08 Note Text: Chief Complaint Patient presents with: Blood Pressure: Recheck-losartan increased to 50mg.No note of call back from [facility] [place] around 09/03/24 as requested with readings. 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 Johnson Dysphagia Dr. Stiles Ectopic 1991 GERD (gastroesophageal reflux disease) History of prediabetes Hyperlipidemia Hypertension Hypothyroidism Obesity (BMI 30.0-34.9) Other pulmonary embolism without acute cor pulmonale (HCC) Pneumonia due to [facility] virus Requiring intubation Previous Surgical History PAST [...] cyst removal from eyelids TONSILLECTOMY HX 195 Family History FAMILY HISTORY Problem Relation Age of Onset Cancer Mother lung Hypertension Mother Cancer Father lung Cancer Brother lung Stroke Maternal Grandmother or SC, patient unsure Coronary Artery Disease Maternal Grandfather No Known Problems Sister Patient Allergies ALLERGIES Allergen Reactions Meagan Inhibitors Rash Codeine Vomiting, Other: See Comments Headache Remeron [Mirtazapin* Other: See Comments Fatigue Xtmauyv-Lrk-Rfv Red* Myalgia [place] Unknown Zetia [Ezetimibe] Myalgia Current Medications Current [...] mouth two times a day. mv,jaci,iron,mn/folic acid/chol (LOFW-CBPW-RMSJO, PABA, ORAL) Take 1 tablet by mouth [...] distress, well-hydrated, well nouris (more content not included)...[facility]01-03-2025 History of Present illness Narrative* Girish Lemos MD - 09/19/2024 9:57 AM EST Chief Complaint Patient presents with: Blood Pressure: Recheck-losartan increased to 50mg.No note of call back from [facility] 09/03/24 as requested with readings. 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 Johnson Dysphagia Dr. Stiles Ectopic 1991 GERD (gastroesophageal reflux disease) History of prediabetes Hyperlipidemia Hypertension Hypothyroidism Obesity (BMI 30.0-34.9) Other pulmonary embolism without acute cor pulmonale (HCC) Pneumonia due to [facility]- virus Requiring intubation Previous Surgical History PAST [...] Cancer Brother lung Stroke Maternal Grandmother or SC, patient unsure Coronary Artery Disease Maternal Grandfather No Known Problems Sister Patient Allergies ALLERGIES Allergen Reactions Meagan Inhibitors Rash Codeine Vomiting, Other: See Comments Headache Remeron [Mirtazapin* Other: See Comments Fatigue Bhlzjgw-Cbw-Yhd Red* Myalgia [place] Unknown Zetia [Ezetimibe] Myalgia Current Medications Current [...] mouth two times a day. mv,jaci,iron,mn/folic acid/chol (UDST-VYRS-ISFCM, PABA, ORAL) Take 1 tablet by mouth [...] on 03/28/2023 Covid-19 Vaccine() due on 05/18/2024 BP Controlled [...] exercise Girish Lemos MD documented in this encounterShelby [facility]12-[facility]24 Telephone encounter Note * Telephone Encounter - Rachael Baker RN - 08/27/2024 10:50 AM EST Jeanne- [facility] [place] called and is notified of providers message and instructions. She voices understanding and will send updated Bps in one week. Rachael Baker RN [facility]12-11-2024 Miscellaneous Notes* Telephone Encounter - Rachael Baker RN - 08/27/2024 10:50 AM EST Jeanne- [facility] [place] called and is notified of providers message [...] 9:33 AM EST Jeanne- [facility] [place]- reports she received a referral from patient's insurance company, once patient's losartan was increased, for their 3 mth monitoring program. [facility] [place] monitors quality of life, checks VS's, monitor's [...] weeks. Given fax number. documented in this encounterShelby [facility] Hospital12-11-2024 Telephone encounter Note * Telephone Encounter - Girish Lemos MD - 08/27/2024 10:15 AM EST BP still high on this dosage after about 1 week. Please send updated BP in 1 week. If still high then, will increase to 100 mg daily. [facility]12-11-2024 Telephone encounter Note* Telephone Encounter - Marta Meadows RN - 08/27/2024 9:33 AM EST Jeanne- [facility] [place] she received a referral from patient's insurance company, once patient's losartan was increased, for their 3 mth monitoring program. [facility] [place] monitors quality of life, checks VS's, monitor's [...] patient for 3 weeks. Given fax number. 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 Johnson Dysphagia Dr. tSiles Ectopic 1991 GERD (gastroesophageal reflux disease) History of prediabetes Hyperlipidemia Hypertension Hypothyroidism Obesity (BMI 30.0-34.9) Other pulmonary embolism without acute cor pulmonale (HCC) Pneumonia due to [place] [address] virus Requiring intubation ALLERGIES Meagan Inhibitors, Codeine, Remeron [Mirtazapine], Zdyokwe-Vwh-Dqn Reductase Inhibitors, [place], and Zetia [Ezetimibe] MEDICATIONS Current Outpatient Medications [...] hours as needed for pain. mv,jaci,iron,mn/folic acid/chol (CMMX-CNKY-TUKCY, PABA, ORAL) Take 1 tablet by mouth [...] 03/28/2023 Advance Directive Discussion Never done Covid-19 Vaccine( season) due on 05/18/2024 BP [...] - LOSARTAN 50 MG TABLET Jeanette Berrios APRN.DIE POLISHER Prescription instructions reviewed with patient as applicable. [...] Level: 4 - Moderate documented in this encounterShelby Memorial Hospital12-03-2024 NoteHNO ID: [id number] Author: JEANETTE BERRIOS APRN.DIE POLISHER Service: ? 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 Johnson Dysphagia Dr. Stiles Ectopic 1991 GERD (gastroesophageal reflux disease) History of prediabetes Hyperlipidemia Hypertension Hypothyroidism Obesity (BMI 30.0-34.9) Other pulmonary embolism without acute cor pulmonale (HCC) Pneumonia due to COVID-19 virus Requiring intubation ALLERGIES Meagan Inhibitors, Codeine, Remeron [Mirtazapine], Voadwzm-Kcr-Lvw Reductase Inhibitors, [place], and Zetia [Ezetimibe] MEDICATIONS Current Outpatient Medications [...] hours as needed for pain. mv,jaci,iron,mn/folic acid/chol (PRCN-UJKL-JITPS, PABA, ORAL) Take 1 tablet by mouth [...] - LOSARTAN 50 MG TABLET Jeanette Berrios APRN.DIE POLISHER Prescription instructions reviewed with patient as applicable. [...] testing/treatment Medical Decision Making Level: 4 - ModerateEast [facility] NoteHNO ID: [id number] Author: JEANETTE BERRIOS APRN.DIA Service: ? Author Type: Nurse Practitioner Type: [...] No. 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 Last visit in May. 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 Johnson Dysphagia Dr. Stiles Ectopic 1991 GERD (gastroesophageal reflux disease) History of prediabetes Hyperlipidemia Hypertension Hypothyroidism Obesity (BMI 30.0-34.9) Other pulmonary embolism without acute cor pulmonale (HCC) Pneumonia due to [place] [address] virus Requiring intubation ALLERGIES Meagan Inhibitors, Codeine, Remeron [Mirtazapine], Hxtcjcm-Tcm-Rtv Reductase Inhibitors, [place], and Zetia [Ezetimibe] MEDICATIONS Current Outpatient Medications [...] hours as needed for pain. mv,jaci,iron,mn/folic acid/chol (ORSW-MJLF-YZAAD, PABA, ORAL) Take 1 tablet by mouth [...] Abs Lymph 1.00 - 4.00 k/uL 1.36 Shawnee% % 13.7 Abs [place]nee <0.87 k/uL 0.58 Eosin% % 2.4 Abs Eosin <0.46 k/uL 0.10 Baso% % 1.4 Abs Baso <0.11 k/uL 0.06 Immature Gran % % 0.5 IMMATURE GRANS (ABS) <0.10 k/uL <0.03 NRBC /100 WBC 0 (more content not included)...[facility] 07-15-2024 History of Present illness Narrative* Jeanette Berrios APRN.DIE POLISHER - 07/15/2024 8:56 AM EDT 07/15/2024 Patient [...] No. 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 Last visit in May. 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 Johnson Dysphagia Dr. Stiles Ectopic 1991 GERD (gastroesophageal reflux disease) History of prediabetes Hyperlipidemia Hypertension Hypothyroidism Obesity (BMI 30.0-34.9) Other pulmonary embolism without acute cor pulmonale (HCC) Pneumonia due to [facility]- virus Requiring intubation ALLERGIES Meagan Inhibitors, Codeine, Remeron [Mirtazapine], Mpuknmp-Hyd-Pim Reductase Inhibitors, [place], and Zetia [Ezetimibe] MEDICATIONS Current Outpatient Medications [...] hours as needed for pain. mv,jaci,iron,mn/folic acid/chol (GIMP-XXBR-DRSYA, PABA, ORAL) Take 1 tablet by mouth [...] or lesions to exposed skin Latest Ref [facility] 01/18/2024 WBC 3.70 - 11.00 k/uL 4.22 [...] Abs Lymph 1.00 - 4.00 k/uL 1.36 [place]nee% % 13.7 Abs [place] <0.87 k/uL 0.58 Eosin% % 2.4 Abs [...] done Influenza Vaccine(1) due on 05/18/2024 Covid-19 Vaccine( season) due on 05/18/2024 BP [...] Follow up in 6 months Jeanette Berrios, [employer]UATION MANAGER.DIE POLISHER Prescription instructions reviewed with patient as applicable. [...] Level: 4 - Moderate documented in this encounterShelby [facility] Hospital10-25-2024 Telephone encounter Note * Telephone Encounter [...] Briseyda Kong July 11, 2024 8:49 AM [facility]10-25-2024 Miscellaneous Notes* Telephone Encounter - Briseyda [...] 11, 2024 8:49 AM documented in this encounterShelby [facility] Hospital10-09-2024 NotePatient Outreach (INTMMN) BETSY RODRIGEZ ([id number]) 1955 F Date Time Provider Department 06/25/24 GIRISH LEMOS INTMMN During your visit today, we recorded the following information about you: Allergies As of Date: 06/25/2024 Noted Allergy Reaction MEAGAN INHIBITORS 10/06/2017 2 - Rash CODEINE 10/06/2017 11 - Vomiting 14 - Other: See Comments Comments: Headache REMERON (MIRTAZAPINE) 01/17/2021 14 - Other: See Comments Comments: Fatigue WPMJLRH-KEG-WNF REDUCTASE INHIBIT*11/14/2017 17 - Myalgia WALNUT 10/06/2017 16 - Unknown ZETIA (EZETIMIBE) 01/17/2021 17 - Myalgia Date Reviewed: 01/08/2024 Reviewed by: Krystin Zimmerman LPN - Fully Assessed Visit Diagnosis:Encounter for screening mammogram for breast cancer [Z12.31] Order(s):[facility] SCREENING W ANT [[id number]] Order #: [id number] FUTURE Prescriptions as of 06/30/2024 - potassium [...] as needed for pain. - mv,jaci,iron,mn/folic acid/chol (TJRE-XZGB-PPNCU, PABA, ORAL) Take 1 tablet by mouth [...] hypertension (HCC) [I27.20] 06/22/2023 Encounter Status:Closed by ELLIOTT ANNA on 06/30/24[facility] 04-28-2024 Telephone encounter Note* Telephone Encounter - Beverley Colbert - 04/28/2024 2:01 PM EDT Prescription Refill [...] to [facility] today if possible. Beverley Salazar [facility] April 28, 2024 2:02 PM [facility]08-12-2024 Miscellaneous Notes* Telephone Encounter - Beverley Colbert - 04/28/2024 2:01 PM EDT Prescription Refill [...] 28, 2024 2:02 PM documented in this encounterShelby [facility] Hospital05-06-2024 Telephone encounter Note * Telephone Encounter - Mae Wong MA - 01/21/2024 10:45 AM EDT Pt notified and voiced understanding. Mae Wong MA [facility]05-06-2024 Miscellaneous Notes* Telephone Encounter - Mae Wong MA - 01/21/2024 10:45 AM EDT Pt notified and voiced understanding. Mae Wong MA * Telephone Encounter - Mae Wong MA - 01/21/2024 10:44 AM EDT ----- Message from Jeanette Berrios APRN.DIE POLISHER sent at 01/21/2024 6:40 AM EDT ----- Vitamin D mildly low- if not already should take 2000 units daily- may get this over the counter. The rest of her blood work is normal. Jeanette Berrios APRN.CNP documented in this encounterShelby Memorial Hospital05-06-2024 Telephone encounter Note * Telephone Encounter - Mae Wong MA - 01/21/2024 10:44 AM EDT ----- Message from Jeanette Berrios APRN.CNP sent at 01/21/2024 6:40 AM EDT ----- Vitamin D mildly low- if not already should take 2000 units daily- may get this over the counter. The rest of her blood work is normal. Jeanette Berrios APRN.CNP [facility]04-23-2024 History of Present illness Narrative* Jeanette [...] No. ASTHMA/Pulmonary HTN: Follows with Dr. 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 Has follow-up with pulmonology next week. 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 Johnson Dysphagia Dr. Stiles Ectopic 1991 GERD (gastroesophageal reflux disease) History of prediabetes Hyperlipidemia Hypertension Hypothyroidism Obesity (BMI 30.0-34.9) Other pulmonary embolism without acute cor pulmonale (HCC) Pneumonia due to [place] [address] virus Requiring intubation ALLERGIES Meagan Inhibitors, Codeine, Remeron [Mirtazapine], Lwajdas-Pib-Fod Reductase Inhibitors, [place], and Zetia [Ezetimibe] MEDICATIONS Current Outpatient Medications [...] not taking: Reported on 06/22/2023) mv,jaci,iron,mn/folic acid/chol (LBJZ-VJPQ-SDINQ, PABA, ORAL) Take 1 tablet by mouth [...] - COMPLETE BLOOD COUNT AND DIFFERENTIAL Jeanette Schaefferlogshia, BRANCH OPERATION EVALUATION MANAGER.DIE POLISHER Prescription instructions reviewed with patient as applicable. [...] Level: 4 - Moderate documented in this encounterShelby [facility] Hospital02-06-2024 Miscellaneous Notes* Telephone Encounter - Adriana [...] you. Adriana Landry LPN. documented in this encounterShelby Memorial Hospital10-06-2023 Instructions* Patient Instructions* Jeanette Berrios APRN.CNP - 06/22/2023 9:17 AM EDT Check labs in August, follow-up in 6 months for routine visit Use debrox for ear documented in this encounterShelby Memorial Hospital10-06-2023 History of Present illness Narrative* Jeanette [...] bedning over. ASTHMA: Follows with Dr. James, [facility] candy separator enrobing with last visit on 03/13/2023. Completed PFT and walking test. Patient reports was told looks like she is improving some Patient reports spoke with sleep medicine over at [facility] and was told she has horrible insomnia. Will be following up with sleep medicine. Has CPAP she uses sometimes HYPOTHYROIDISM: taking synthroid as prescribed without side effects PREDIABETES: tries to eat lower carbohydrate diet and stay active. 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 Johnson Dysphagia Dr. Stiles Ectopic 1991 GERD (gastroesophageal reflux disease) History of prediabetes Hyperlipidemia Hypertension Hypothyroidism Obesity (BMI 30.0-34.9) Other pulmonary embolism without acute cor pulmonale (HCC) Pneumonia due to [place] [address] virus Requiring intubation ALLERGIES Meagan Inhibitors, Codeine, Remeron [Mirtazapine], Oktdpro-Fxc-Xyl Reductase Inhibitors, [place], and Zetia [Ezetimibe] MEDICATIONS Current Outpatient Medications [...] tablets by mouth once daily. mv,jaci,iron,mn/folic acid/chol (YTRS-RLMX-BSBOT, PABA, ORAL) Take 1 tablet by mouth [...] Abs Lymph 1.00 - 4.00 k/uL 1.41 [place]% % 12.2 Abs [place] <0.87 k/uL 0.66 Eosin% % 2.8 Abs [...] - ICD9: 426.11, ICD10: I44.0 - follow-up [facility] as recommended Jeanette Berrios APRN.DIE POLISHER Prescription instructions reviewed with patient as applicable. [...] which included preparing to see the patient, vpfj-em-ddvm patient care, completing clinical documentation, obtaining and/or reviewing separately obtained history, performing a medically appropriate examination, counseling and educating the pat ient/family/caregiver, and ordering medications, tests, or procedures. documented in this encounterShelby Memorial Hospital08-21-2023 Miscellaneous Notes* Telephone Encounter - Rosario [...] her insurance. Pended. Needs diagnosis. Fax to [phone]. Phylicia Heredia RN documented in this encounterShelby Memorial Hospital08-21-2023 Procedure [facility]07-28-2023 Miscellaneous Notes* Telephone Encounter - [...] 02/20/2023 308 04/20/2021 277 Potassium: 4.7 on 6.6.2023 Please advise. Thank you. Phylicia Heredia, RN documented in this encounterShelby Memorial Hospital07-05-2023 Instructions* Patient Instructions* Jeanette Berrios APRN.CNP - 03/21/2023 9:29 AM EDT Make appointment with Dr. Stiles to discuss colonoscopy documented in this encounterShelby Memorial Hospital07-05-2023 History of Present illness Narrative* Jeanette Berrios APRN.CNP - 03/21/2023 9:11 AM EDT 03/21/2023 Patient presents with: Recheck: Low heart rate SUBJECTIVE: This is a 67 year old that is here today for Above Complaints. BP elevated at last office visit. No medication changes made at that time. Not checking BP at home.Admits to chronic intermittent dizziness since COVID-19. Denies visual changes, headaches, slurred speech, facial drooping, extremity numbness, tingling, weakness, presyncope, syncope, worsening SOB from her baseline, dyspnea, wheezing, coughing, orthopnea, chest pain or palpitations. Has appointment with non-[facility] armoured corps officer in March for her bradycardia Spot to [...] 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 Johnson Dysphagia Dr. Stiles Ectopic 1991 GERD (gastroesophageal reflux disease) History of prediabetes Hyperlipidemia Hypertension Hypothyroidism Obesity (BMI 30.0-34.9) Other pulmonary embolism without acute cor pulmonale (HCC) [facility] Requiring intubation ALLERGIES Meagan Inhibitors, Codeine, Remeron [Mirtazapine], Dzomisw-Xep-Kqk Reductase Inhibitors, [place], and Zetia [Ezetimibe] MEDICATIONS Current Outpatient Medications [...] tablets by mouth once daily. mv,jaci,iron,mn/folic acid/chol (FGNI-EIRK-JNFAP, PABA, ORAL) Take 1 tablet by mouth [...] R21 - follow-up if not resolving Jeanette Berrios APRN.DIE POLISHER Prescription instructions reviewed with patient as applicable. [...] which included preparing to see the patient, kuvg-gh-epio patient care, completing clinical documentation, obtaining and/or reviewing separately obtained history, performing a medically appropriate examination, counseling and educating the pat ient/family/caregiver, and ordering medications, tests, or procedures. documented in this encounterShelby Memorial Hospital07-03-2023 Miscellaneous Notes* Telephone Encounter - Priti Heck LPN - 03/19/2023 2:49 PM EDT Thi from [facility] [place] asking that last office visit and EKg be faxed to Dr. Xuan Castillo. These were faxed to [phone]. documented in this encounterShelby Memorial Hospital06-07-2023 Miscellaneous Notes* Telephone Encounter - Adriana Landry LPN - 02/21/2023 10:59 AM EDT Patient returned call and went over results, notes from Jeanette Berrios BLANKET WASHER with understanding. Patient said she can not [...] AM EDT ----- Message from Jeanette Berrios APRN.DIA sent at 02/21/2023 7:45 AM EDT ----- Cholesterol levels about the same as last check. Continue to eat lower saturated fat diet and aim for at least 150 minutes of exercise per week. A1c remains the same in prediabetic range- continue lower carbohydrate diet and exercise as mentioned abo ve. The rest of her blood work is within acceptable ranges. Jeanette Berrios APRN.DIE POLISHER documented in this encounterShelby Memorial Hospital06-06-2023 Nurse Note* Krystin Zimmerman LPN - 02/20/2023 9:25 AM EDT ROSALVA BP: BP 163/84 P 47 #1 BP 167/90 P 47 #2 BP 166/80 P 50 #3 BP 164/89 P 47 #4 BP 164/90 P 46 #5 BP 153/84 P 46 #6 BP 166/81 P 47 Krystin Zimmerman LPN documented in this encounterShelby Memorial Hospital06-06-2023 History of Present illness Narrative* Jeanette Berrios APRN.DIE POLISHER - 02/20/2023 8:46 AM EDT 02/20/2023 Patient [...] 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 Johnson Dysphagia Dr. Stiles Ectopic 1991 GERD (gastroesophageal reflux disease) History of prediabetes Hyperlipidemia Hypertension Hypothyroidism Obesity (BMI 30.0-34.9) Other pulmonary embolism without acute cor pulmonale (HCC) Pneumonia due to [place] [address] virus Requiring intubation ALLERGIES Meagan Inhibitors, Codeine, Remeron [Mirtazapine], Knbxsbs-Okn-Ywp Reductase Inhibitors, [place], and Zetia [Ezetimibe] MEDICATIONS Current Outpatient Medications [...] by mouth three times daily. mv,jaci,iron,mn/folic acid/chol (QOPD-CGOA-LGFJN, PABA, ORAL) Take 1 tablet by mouth [...] - follow-up pending blood work Jeanette Berrios APRN.DIA Prescription instructions reviewed with patient as applicable. [...] which included preparing to see the patient, xybz-ps-xzsf patient care, completing clinical documentation, obtaining and/or reviewing separately obtained history, performing a medically appropriate examination, counseling and educating the pat ient/family/caregiver, and ordering medications, tests, or procedures. documented in this encounterShelby Memorial Hospital05-10-2023 History of Present illness Narrative* Barbara Salinas LPN - 01/24/2023 10:[address] Merida, Betsy was provided with powerstep original, size 8, and instructed/educated in its application, wear, and care. All questions were answered, and patient was able to demonstrate competence with the necessary skills to utilize the above equipment. Per Dr. Merida, Betsy was provided with gel toe cap, size [...] 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 Johnson Dysphagia Dr. Stiles Ectopic 1991 GERD (gastroesophageal reflux disease) History of prediabetes Hyperlipidemia Hypertension Hypothyroidism Obesity (BMI 30.0-34.9) Other pulmonary embolism without acute cor pulmonale (HCC) Pneumonia due to [facility]- virus Requiring intubation Current Outpatient Medications Medication [...] tablets by mouth once daily. mv,jaci,iron,mn/folic acid/chol (QWZG-UTRJ-ZFHYI, PABA, ORAL) Take 1 tablet by mouth [...] Headache Remeron [Mirtazapin* Other: See Comments Fatigue Ucbrhtc-Umk-Hvy Red* Myalgia [place] Unknown Zetia [Ezetimibe] Myalgia PAST SURGICAL HISTORY [...] Cancer Brother lung Stroke Maternal Grandmother or SC, patient unsure Coronary Artery Disease Maternal Grandfather [...] dispensed. Talat Merida DPM Podiatry [address] [facility] [address] Dept: [phone] Dept * Barbara Salinas LPN - 01/24/2023 [...] toe. Barbara Salinas LPN documented in this encounterShelby Memorial Hospital05-10-2023 Instructions* Patient Instructions* Talat Merida - 01/24/2023 10:02 AM EDT Recommend gel pad while walking to help cushion the left 5th toe Powerstep Original Full length. Can purchase at [employer] here in [place], [employer] in [place] or [place]. Also can find in [employer] in [facility]. Powersteps can also be purchased online, starting [...] everything fits well together documented in this encounterShelby Memorial Hospital05-10-2023 History of Present illness Narrative* Antonia [...] 24, 2023 8:50 AM documented in this encounterShelby Memorial Hospital01-06-2023 Miscellaneous Notes* Telephone Encounter - Rachael [...] lifting. Jeanette Berrios APRN.CNP documented in this [facility]01-04-2023 History of Present illness Narrative* Dayo [...] 20, 2022 9:58 AM documented in this [facility]01-03-2023 Procedure note* Girish Lemos MD - 09/19/2022 9:48 AM EST After the risks and options of alternative treatments were reviewed, the lesion(s) located on Right[place]illa were treated with cryosurgery after prepping area with alcohol. A total of 3 lesion(s) were treated. Girish Lemos MD documented in this [facility]01-03-2023 Instructions* Patient Instructions* Girish Lemos MD - [...] instructed by your physician, you may take akoj-flu-aviltpx pain medications as needed for discomfort. 5. [...] the office at . documented in this encounterShelby Memorial Hospital01-03-2023 History of Present illness Narrative* Girish [...] 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 Johnson Dysphagia Dr. Stiles Ectopic 1991 GERD (gastroesophageal reflux disease) History of prediabetes Hyperlipidemia Hypertension Hypothyroidism Obesity (BMI 30.0-34.9) Other pulmonary embolism without acute cor pulmonale (HCC) Pneumonia due to [facility]- virus Requiring intubation Previous Surgical History PAST [...] Cancer Brother lung Stroke Maternal Grandmother or SC, patient unsure Coronary Artery Disease Maternal Grandfather No Known Problems Sister Patient Allergies ALLERGIES Allergen Reactions Meagan Inhibitors Rash Codeine Vomiting, Other: See Comments Headache Remeron [Mirtazapin* Other: See Comments Fatigue Hpbnkxz-Imi-Jus Red* Myalgia [place] Unknown Zetia [Ezetimibe] Myalgia Current Medications Current [...] and 3 months after surgery. mv,jaci,iron,mn/folic acid/chol (TQDN-LWLN-QOPFX, PABA, ORAL) Take 1 tablet by mouth [...] 1-15 Girish Lemos MD documented in this encounterShelby Memorial Hospital12-23-2022 Miscellaneous Notes* Telephone Encounter - Jeanette Brerios APRN.CNP - 09/08/2022 9:38 AM EST Medications [...] Scripts instead. Thank you. documented in this encounterShelby Memorial Hospital12-07-2022 Miscellaneous Notes* Telephone Encounter - Rosario [...] medications. Jeanette Berrios APRN.CNP documented in this encounterShelby Memorial Hospital12-06-2022 Instructions* Patient Instructions* Jeanette Berrios APRN.CNP [...] your usual activities immediately. documented in this encounterShelby Memorial Hospital12-06-2022 History of Present illness Narrative* Jeanette [...] 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 Johnson Dysphagia Dr. Stiles Ectopic 1991 GERD (gastroesophageal reflux disease) History of prediabetes Hyperlipidemia Hypertension Hypothyroidism Obesity (BMI 30.0-34.9) Other pulmonary embolism without acute cor pulmonale (HCC) Pneumonia due to [place] [address] virus Requiring intubation ALLERGIES Meagan Inhibitors, Codeine, Remeron [Mirtazapine], Fxddsrh-Byw-Xzz Reductase Inhibitors, [place], and Zetia [Ezetimibe] MEDICATIONS Current Outpatient Medications [...] not taking: Reported on 08/22/2022) mv,jaci,iron,mn/folic acid/chol (ORAJ-PQRH-VAALL, PABA, ORAL) Take 1 tablet by mouth [...] Abs Lymph 1.00 - 4.00 k/uL 1.37 [place]% % 11.0 Abs [place] <0.87 k/uL 1.67 (H) Eosin% % 0.0 Abs Eosin <0.46 k/uL 0.00 Baso% % 0.0 Abs Baso <0.11 k/uL 0.00 [place]% % 2.0 Myelo% % 1.0 Left Shift [...] ICD10: N94.10 - recommend she follow-up with BOOTH OPERATOR 10. Abnormal vaginal bleeding in postmenopausal patient - ICD9: 627.1, ICD10: N95.0 - follow-up with BOOTH OPERATOR Jeanette Podlogar, BRANCH OPERATION EVALUATION MANAGER.DIE POLISHER Prescription instructions reviewed with patient as applicable. [...] which included preparing to see the patient, ymew-oc-wbmo patient care, completing clinical documentation, obtaining and/or reviewing separately obtained history, performing a medically appropriate examination, counseling and educating the pat ient/family/caregiver, and ordering medications, tests, or procedures. documented in this encounterShelby Memorial Hospital11-18-2022 Miscellaneous Notes* Telephone Encounter - Jen Patiño Pss - 08/04/2022 2:25 PM EST Patient [...] advise. Jen Patiño Pss documented in this encounterShelby Memorial Hospital11-09-2022 Miscellaneous Notes* Telephone Encounter - Rosie Mcintosh APRN.CNP - 07/26/2022 10:20 AM EST Patient says her symptoms are gone at this time. Patient was instructed if symptoms return that sheshould come back and have another urine sample done. documented in this encounterShelby Memorial Hospital11-07-2022 Instructions* Patient Instructions* Jamaica Malone APRN.CNP - 07/24/2022 5:50 PM EST Use mycolog cream as needed for irritation Will send cultures and call with results and treatment needed documented in this encounterShelby Memorial Hospital11-07-2022 History of Present illness Narrative* Jamaica Malone APRN.CNP - 07/24/2022 5:37 PM EST Images from the original note were not included. Subjective The history is provided by the patient. No field artillery fire control man was used. ARMANDO Rodrigez is a 66 year old female [...] 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 Johnson Dysphagia Dr. Stiles Ectopic 1991 GERD (gastroesophageal reflux disease) History of prediabetes Hyperlipidemia Hypertension Hypothyroidism Obesity (BMI 30.0-34.9) Other pulmonary embolism without acute cor pulmonale (HCC) [facility] Requiring intubation I have confirmed and edited as necessary, the [facility] Review of Systems Constitutional: Negative for chills, fever and malaise/fatigue. Gastrointestinal: Negative for abdominal pain. Genitourinary: Positive for hematuria. Negative for dysuria, flank pain, frequency and urgency. Objective Physical Exam Vitals and nursing note reviewed. Exam conducted with a tensioning machine operator present. Constitutional: Appearance: Normal appearance. HENT: Mouth/Throat: [...] evaluation. Jamaica Malone APRN.CNP documented in this encounterShelby Memorial Hospital11-07-2022 Miscellaneous Notes* Telephone Encounter - Jeanette Berrios APRN.CNP - 07/24/2022 4:27 PM EST Reviewed. Jeanette Berrios APRN.CNP * Telephone Encounter - Phylicia Heredia RN - 07/24/2022 4:18 PM EST Patient calls for urinary symptoms(urgency, painful urination, and blood in urine). Nurse triage completed. Protocol recommends see provider within 24 hours. Appointment offered. Patient decided to go to [facility] for evaluation and treatment. Reason for Disposition [...] discharge or genital sores. Protocols used: Urinary Auamiwib-KGZML-DB, Urination Pain - Dowgde-YEKBE-HL documented in this encounterShelby Memorial Hospital07-07-2022 History of Present illness Narrative* Girish Lemos MD - 03/23/2022 10:53 AM EDT Chief Complaint Patient presents with: URI: x 1 week HPI Betsy Rodrigez is a 66 year old female who presents here today for Above Complaints. Patient states that since she was in [place] about 1 week ago when she developed [...] 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 Johnson Dysphagia Dr. Stiles Ectopic 1991 GERD (gastroesophageal reflux disease) History of prediabetes Hyperlipidemia Hypertension Hypothyroidism Obesity (BMI 30.0-34.9) Other pulmonary embolism without acute cor pulmonale (HCC) Pneumonia due to [facility]- virus Requiring intubation Previous Surgical History PAST [...] Cancer Brother lung Stroke Maternal Grandmother or SC, patient unsure Coronary Artery Disease Maternal Grandfather No Known Problems Sister Patient Allergies ALLERGIES Allergen Reactions Meagan Inhibitors Rash Codeine Vomiting, Other: See Comments Headache Remeron [Mirtazapin* Other: See Comments Fatigue Dwzerml-Bej-Ufn Red* Myalgia [place] Unknown Zetia [Ezetimibe] Myalgia Current Medications Current [...] capsules by mouth once daily. mv,jaci,iron,mn/folic acid/chol (IXIE-LOXO-OLDRA, PABA, ORAL) Take 1 tablet by mouth [...] SPRAY,SUSPENSION Girish Lemos MD documented in this encounterShelby Memorial Hospital07-07-2022 Miscellaneous Notes* Telephone Encounter - Girish [...] Covid in Jun 2020. 6. FEVER: Fever / of . Reports her forehead feels warm, but she [...] was recently on prolonged travel down to [place]. 10. OTHER SYMPTOMS: Pt reports runny nose, slight fever, nausea, diarrhea, eyes watering/red/blood shot/with pus, fatigue, weak, O2 93% on 1.5 L, slight headache. Pt denies wheezing, chest pain. 11. : Postmenopausal. 12. TRAVEL: Just came back from [place] on Sunday, states no one tested positive down there. Protocols used: COUGH - ACUTE JGIGERCEAS-VKBOR-IV documented in this encounterShelby Memorial Hospital06-08-2022 Miscellaneous Notes* Telephone Encounter - Chacho [...] patient. Bailee Zacarias Pss documented in this encounterShelby Memorial Hospital03-11-2022 History of Present illness Narrative* Antonia [...] 25, 2021 11:18 AM documented in [facility] encounterK[facility] Author Huan Billy [facility] Note Date/Time February 16, 2025 8:12a [facility] Medical Records Department [address] [place] [address] Pre-Anesthesia Evaluation 02/16/25 0809 MR#: [id number] Acct: [id number] Name: BETSY RODRIGEZ Rep #:[id number] : 1955 69 From: Huan Billy MD PCP: Dr. Fabricio Lemos MD Status :REG SD Y Race: C Location: [place] [address] ASA Classification* ASA Classification ASA Classification: 3 [...] 02/03/25 POC Glucose 75 mg/dL (74-106) 01/10/25 05:01/10/25 TSH 3.490 uIU/mL (0.300-4.200) 02/03/25 08:05 01/16 COAG PT 14.2 SECONDS (11.7-14.9) 11/12/24 10:03 Pre-Assessment Diagnosis/Proposed Procedure Planned Operative Procedure(s): LEFT LUMBAR TRANSFORAMINAL EPIDURAL L4-5 S1 UNDER FLUOROSCOPY Anesthesia History Anesthesia History - content designer: Anesthesia History - content designer Hx Hospitalization Yes: 12/2024 DUE TO REACTION [...] take am of surgery PONV PONV - content designer: PONV - content designer Female Yes 02/11/25 15:02 HX of Motion [...] 02/16/25 07:38 Respiratory Assessment Respiratory Assessment - content designer: Respiratory Tract Infection Hx - content designer Hx Respiratory Tract Infection No 02/11/25 15:02 STOP Sleep Apnea STOP Sleep Apnea - content designer: STOP Sleep Apnea - content designer Hx Hypertension Yes: CONTROLLED WITH MED 02/11/25 [...] Tobacco Use History Tobacco Use History - content designer: Tobacco Use History - content designer Tobacco Use Smoking Status Former smoker 02/11/25 15:02 Hx Tobacco Use No 02/11/25 15:02 Years Smoking Packs Smoked per Day Smoking Cessation Date was Yes - quit smoking within 15 02/11/25 15:02 within the last 15 years years Hx Smoking Cessation Date 09/17/15 02/11/25 15:02 Hx Smoking Cessation No 02/11/25 15:02 Counseling Hematologic Medial History Hematologic Hx - content designer: 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 Hx of Blood Transfusion No 02/11/25 15:02 [...] confused, unrespo /Reproduction History /Reproductive History - content designer: /Reproductive Hx- content designer Hx Now No 02/11/25 15:02 Gestational Age [...] Allergy prednisone AdvReac Other Verified 02/16/25 07:36 Idagisx-YCL-ZpI Reductase AdvReac cramps Verified 02/16/25 07:36 Inhibitor (Atdbsjw-Stj-Jxf Reductase Inhibitor) Family History Mother Cancer Hx [...] MD Cosigner Signature: Date CC: ~ Signed [facility] Work Phone: Consult note Author Daniel Sevilla [facility] Note Date/Time February 16, 2025 8:55a [facility] Medical Records Department [address] [place] [address] Anesthesia Postop Eval I 02/16/25 0854 MR#: [id number] Acct: [id number] Name: BETSY RODRIGEZ Rep #:[id number] : 1955 69 From: Daniel Sevilla PCP: Dr. Fabricio Lemos MD Status :REG SDC Y Race: C Location: [place] [address] Anesthesia: Postop Eval I Current Vital Signs [...] Daniel Mendoza Signature: Date CC: ~ Signed [facility] Work Phone: Consult note Author Huan Billy [facility] Note Date/Time February 16, 2025 9:34a [facility] Medical Records Department [address] [place] [address] Anesthesia Postop Eval II 02/16/25 0901 MR#: [id number] Acct: [id number] Name: BETSY RODRIGEZ Rep #:[id number] : 1955 69 From: Huan Billy MD PCP: Dr. Fabricio Lemos MD Status :REG SDC Y Race: C Location: [place] [address]- Anesthesia Postop Eval I Sum Postop Eval [...] MD Cosigner Signature: Date CC: ~ Signed [facility] Work Phone: Discharge summary Author Jassi Borden [facility] Note Date/Time January 10, 2025 2:2 8pm [facility] Medical Records Department [address] [place] [address] Instructions for Home/Discharge Instructions 01/10/25 1425 MR#: [id number] Acct: [id number] Name: BETSY RODRIGEZ Rep #:[id number] : [...] Lemos MD [Primary Care Provider] - Sherice Fernandze MD [Med Staff - Active Staff] - Within 1 Month Disposition Disposition (needs filled in before D/C Order can be placed): Home, Self Care 01/10/251427<Electronically signed by Jassi Borden MD>Jassi Borden MD CC: Dr. Fabricio Lemos MD; Dr. Estrella Cabezas MD ~ Signed [facility] Work Phone: Discharge summary Author Jassi Borden [facility] Note Date/Time January 10, 2025 2:3 9pm [facility] Medical Records Department [address] [place] [address] Discharge Summary 01/10/251427 MR#: [id number] Acct: [id number] Name: BETSY RODRIGEZ Marta Rep #:[id number] : 1955 69 From: Jassi Schneider PCP: Dr. Fabricio Lemos MD Status :ADM FARIBA Location: [place] [address] Providers Date of Admission: 01/09/25 Date of [...] 01/10/25 14:09 RMA (Rec: 01/10/25 14:09 RMA [id number]) Nutrition Malnutrition Evidence of Yes Malnutrition Exists [...] 93.2 H, Lymph % (Auto) 4.7 L, [place] % (Auto) 0.2, Eos % (Auto) 0.0, [...] relate to congestion and edema. Reading Location: [facility] Echocardiogram 01/09/25 20:22 Interpretation Summary The LV [...] Self Care Charges/Coding Visit Charges Inpatient E&M: 33271 Disch Hosp >30min 01/10/25 3022 <Electronically signed by Jassi Borden MD> Cosigner Signature (if applicable): CC: Dr. Fabricio Lemos MD; Dr. Jassi Borden MD~ Signed [facility] Work Phone: Evaluation note* Diagnosis Onset Date Resolution Status Respiratory insufficiency ac natalie Smoking greater than 40 pack years acute [facility] Work Phone: Evaluation note* Diagnosis Suspected COVID-19 virus infection- Primary Non-seasonal allergic rhinitis, unspecified trigger documented in this encounter [facility] note* Diagnosis Gross hematuria- Primary Acute vaginitis Vaginitis and vulvovaginitis, unspecified Vulvar irritation Other specified noninflammatory disorder of vulva and perineum documented in this encounter [facility] note* Diagnosis Acquired hypothyroidism Unspecified hypothyroidism Essential hypertension Unspecified essential hypertension documented in this encounter [facility] note* Diagnosis Encounter for screening mammogram for breast cancer [facility]* Diagnosis Essential hypertension- Primary Unspecified essential [...] in postmenopausal patient [facility]* Diagnosis Ringworm of body Dermatophytosis of the body Acquired hypothyroidism Unspecified hypothyroidism Essential hypertension Unspecified essential hypertension [facility]* Diagnosis Onset Date Resolution Status Influenza acute [facility] Work Phone: Evaluation note* Diagnosis Skin tag- Primary Unspecified hypertrophic and atrophic condition of skin S/P cryotherapy of skin lesion documented in this encounter [facility] note* Diagnosis Onset Date Resolution Status Bronchiectasis acute Smoking greater than 40 pack years [facility] Work Phone: Evaluation note* Diagnosis Hammertoe of left foot- Primary Pain in toe of left foot Pain in limb Other acute pulmonary embolism, unspecified whether acute cor pulmonale present (HCC) documented in this encounter [facility] note* Diagnosis Essential hypertension- Primary Unspecified essential hypertension Prediabetes Other abnormal glucose Acquired hypothyroidism Unspecified hypothyroidism Hyperlipidemia, unspecified hyperlipidemia type Bradycardia Other specified cardiac dysrhythmias First degree AV block First degree atrioventricular block Stage 3 chronic kidney disease, unspecified whether stage 3a or 3b CKD (HCC) [facility]* Diagnosis Primary hypertension- Primary Unspecified essential hypertension Bradycardia Other specified cardiac dysrhythmias Skin eruption Rash and other nonspecific skin eruption [facility]* Diagnosis Acquired hypothyroidism Unspecified hypothyroidism Essential hypertension Unspecified essential hypertension documented in this encounter [facility] note* Diagnosis Screening for colon cancer- Primary Special screening for malignant neoplasms, colon documented in this encounter [facility] note* Diagnosis Onset Date Resolution Status Bronchiectasis acute COVID-19 acute Pulmonary fibrosis acute Pulmonary hypertension acute Smoking greater than 40 pack years [facility] Work Phone: evaluation note* Diagnosis Essential hypertension- Primary Unspecified essential hypertension Encounter for immunization Need for other specified prophylactic vaccination against single bacterial disease Prediabetes Other abnormal glucose Acquired hypothyroidism Unspecified hypothyroidism Stage 3 chronic kidney disease, unspecified whether stage 3a or 3b CKD (HCC) First degree AV block First degree atrioventricular block documented in this encounter [facility] note* Diagnosis Pain Generalized pain [facility]* Diagnosis Screening for osteoporosis Special screening for osteoporosis documented in this encounter [facility] note* Diagnosis Encounter for screening mammogram for breast cancer [facility] Diagnosis Acquired hypothyroidism Unspecified hypothyroidism Essential hypertension Unspecified essential hypertension documented in this encounter [facility] note* Diagnosis Essential hypertension- Primary Unspecified essential hypertension Non-seasonal allergic rhinitis, unspecified trigger Acquired hypothyroidism Unspecified hypothyroidism Hyperlipidemia, unspecified hyperlipidemia type Stage 3 chronic kidney disease, unspecified whether stage 3a or 3b CKD (HCC) Pulmonary hypertension (HCC) Other chronic pulmonary heart diseases Muscle cramps Cramp of limb documented in this encounter [facility] noteNo assessment information [facility] Work Phone[facility]* Diagnosis Essential hypertension Unspecified essential hypertension documented in this encounter [facility] note* Diagnosis Fever, unspecified fever cause Diarrhea, unspecified type Nausea Nausea alone Cough documented in this encounter [facility] note* Diagnosis Pneumonia due to infectious organism, unspecified laterality, unspecified part of lung documented in this encounter [facility] note* Diagnosis Encounter for screening mammogram for breast cancer documented in this encounter [facility] note* Diagnosis Acquired hypothyroidism Unspecified hypothyroidism documented in this encounter [facility] note* Diagnosis Essential hypertension- Primary Unspecified essential [...] hypothyroidism Unspecified hypothyroidism documented in this encounter [facility] note* Diagnosis Essential hypertension Unspecified essential hypertension documented in this encounter [facility] note* Diagnosis Primary hypertension- Primary Unspecified essential hypertension documented in this encounter [facility] note* Diagnosis Generalized abdominal pain- Primary Abdominal pain, generalized Diarrhea, unspecified type Nausea Nausea alone Generalized abdominal pain Abdominal pain, generalized Diarrhea, unspecified type Nausea Nausea alone documented in this encounter [facility] note* Diagnosis Generalized abdominal pain Abdominal pain, generalized Diarrhea, unspecified type Nausea Nausea alone documented in this encounter [facility] note* Diagnosis Liver masses- Primary Unspecified disorder of liver RUQ abdominal pain Abdominal pain, right upper quadrant Nausea and vomiting, unspecified vomiting type Diarrhea, unspecified type documented in this encounter [facility] note* Diagnosis Abnormal MRI, liver- Primary Nonspecific (abnormal) findings on radiological and other examination of biliary tract documented in this encounter [facility] note* Diagnosis Liver masses Unspecified disorder of liver documented in this encounter [facility] note* Diagnosis Liver masses Unspecified disorder of liver documented in this encounter [facility] note* Diagnosis Generalized abdominal pain- Primary Abdominal [...] rectum and anus documented in this encounter [facility] note* Diagnosis Chest pain, unspecified type- Primary [...] Loss of weight [facility]* Diagnosis Viral URI with cough- Primary Acute upper respiratory infections of unspecified site Immunocompromised state (HCC) Unspecified immunity deficiency Viral URI with cough Acute upper respiratory infections of unspecified site [facility] Diagnosis Viral URI with cough Acute upper respiratory infections of unspecified site [facility] Diagnosis Acquired hypothyroidism Unspecified hypothyroidism documented in this encounter [facility] note* Diagnosis Essential hypertension Unspecified essential hypertension documented in this encounter [facility] Discharge instructions Additional Instructions You were given IV fluids for dehydration. Continue taking your home nausea and pain medications. Follow-up with the oncologist at your appointment tomorrow.[facility] Work Phone: [facility] for referral (narrative)* Diagnostic Procedure Only (Routine) - Pending Review Specialty Diagnoses / Procedures Referred By Zaida ayers Referred To Contact [facility] Diagnoses Encounter for screening mammogram for breast cancer Procedures LYN SCREENING SCREENING MAMMOGRAPHY BI 2-VIEW BREAST INC CAD Girish Lemos MD [address] [place] [address] [facility] [address] [facility] [place] [address] Referral ID Status Reason Start Date Expiration Date Visits Requested Visits Authorized [id number] Pending Review Auto-Generat ed Referral 08/17/2022 09/16/2023 1 1 [facility] for referral (narrative)* Outpatient Procedure (Routine) - Closed Specialty Diagnoses / Procedures Referred By Zaida ayers [facility] Diagnoses Bradycardia Procedures ECG COMPLETE ECG ROUTINE ECG W/LEAST 12 LDS W/I&R Jeanette Berrios APRN.CNP [address] [place] [address] [facility] [address] [place] [address] Referral ID Status Reason Start Date Expiration Date V isits Requested Visits Authorized [id number] Closed Auto-Generate d Referral 02/20/2023 02/20/2024 1 1 * Consult, Test, Treat (Routine) - Authorized Specialty Diagnoses / Procedures Referred By Contac t Referred To Contact Cardiology Diagnoses Bradycardia First degree AV block Procedures CONSULT TO CARDIOLOGY OFFICE/OUTPATIENT [facility] 60-74 MINUTES MaksimlogJeanette gibbons APRN.CNP [address] [place] [address] Referral ID Status Reason Start Date Expiration Date Visits Requested Visits Authorized [id number] Authorized PCP Requested Referral 02/20/2023 02/20/2024 1 1 [facility] for referral (narrative)* Diagnostic Procedure Only (Routine) - Closed Specialty Diagnoses / Procedures Referred By Contac t Referred To Contact XR IMAGING Diagnoses Pain Procedures XR FOOT GENERAL 3V AP/LAT/OBL LEFT RADEX FOOT COMPLETE MINIMUM 3 VIEWS Talat Merida [address] [place] [address] [place] [address] Referral ID Status Reason Start Date Expiration Date V isits Requested Visits Authorized [id number] Closed Auto-Generate d Referral 01/04/2023 02/03/2024 1 1 [facility] for referral (narrative)* Diagnostic Procedure Only (Routine) - Pending Review Specialty Diagnoses / Procedures Referred By Contac t Referred To Contact [facility] Diagnoses Encounter for screening mammogram for breast cancer Procedures LYN SCREENING SCREENING MAMMOGRAPHY BI 2-VIEW BREAST INC Girish Espinal MD [address] [place] [address] [facility] [address] [place] [address] Referral ID Status Reason Start Date Expiration Date Visits Requested Visits Authorized [id number] Pending Review Auto-Generat ed Referral 07/25/2023 08/23/2024 1 1 [facility] for referral (narrative)* Diagnostic Procedure Only (Routine) - New Request Specialty Diagnoses / Procedures Referred By Zaida ayers Referred To Contact [facility] Diagnoses Encounter for screening mammogram for breast cancer Procedures LYN SCREENING W ANT SCREENING DIGITAL BREAST TOMOSYNTHESIS BI SCREENING MAMMOGRAPHY BI 2-VIEW BREAST INC CAD Girish Lemos MD [address] [place] [address] [facility] [address] [place] [address] Referral ID Status Reason Start Date Expiration Date Visits Requested Visits Authorized [id number] New Request Auto-Generat ed Referral 06/25/2024 07/25/2025 1 1 [facility] for referral (narrative)No reason for referral information [facility]WWood [facility] Work Phone: Reason for visit Narrative* Diagnostic Procedure Only (Routine) - Closed Specialty Diagnoses / Procedures Referred By Zaida ayers Referred To Contact XR IMAGING Diagnoses Pain Procedures XR FOOT GENERAL 3V AP/LAT/OBL LEFT RADEX FOOT COMPLETE MINIMUM 3 VIEWS Talat Merida [address] [place] [address] [place] [address] Referral ID Status Reason Start Date Expiration Date V isits Requested Visits Authorized [id number] Closed Auto-Generate d Referral 01/04/2023 02/03/2024 1 1 [facility] Summary Purpose Family History Relationship Condition Age at Onset Recorded Date/T chris mother Malignant neoplasm Unknown father Malignant neoplasm Unknown Advance Directives Advance Directive Response Recorded Date/ Time Advance Directives No October 11:59pm Living Will No November 17, 2021 12:21pm Power of Quality Systems Specialist No November 17 12:21pm Advance Directive Response Recorded Date/ Time Advance Directives No October 10:59pm Living Will No September 13 022 6:53am Power of Quality Systems Specialist No September 13, 2022 6:53am Advance Directive Response Recorded Date/ Time Advance Directives No October 11:59pm Living Will No September 13 022 7:53am Power of Quality Systems Specialist No September 13, 2022 7:53am Advance Directive Response Recorded Date/ Time Living Will No May 28, 2024 11:58am Power of Quality Systems Specialist No May 11:58am Living Will No November 12 2:53pm Power of Quality Systems Specialist No November 12, 2024 2:53pm Living Will No November 23, 2024 4:39pm Power of Quality Systems Specialist No November 23 4:39pm Advance Directives No October 11:59pm Advance Directive Response Recorded Date/ Time Living Will No May 28, 2024 11:58am Do you have a Healthcare Power of Quality Systems Specialist? No May 28, 2024 11:58am Advance Directives No December 09 025 11:48am Living Will No November 12 2:53pm Do you have a Healthcare Power of Quality Systems Specialist? No November 12, 2024 2:53pm Living Will No November 28, 2024 8:45am Do you have a Healthcare Power of Quality Systems Specialist? No November 28, 2024 8:45am Living Will No November 23, 2024 4:39pm Do you have a Healthcare Power of Quality Systems Specialist? No November 23, 2024 4:39pm Advance Directive Response Recorded Date/ Time Living Will No May 28, 2024 11:58am Do you have a Healthcare Pow er of Quality Systems Specialist? No May 28, 2024 11:58am Advance Directives No December 09 025 11:48am Living Will No November 12 2:53pm Do you have a Healthcare Pow er of Quality Systems Specialist? No November 12, 2024 2:53pm Living Will No November 28, 2024 8:45am Do you have a Healthcare Pow er of Quality Systems Specialist? No November 28, 2024 8:45am Living Will No November 23, 2024 4:39pm Do you have a Healthcare Pow er of Quality Systems Specialist? No November 23, 2024 4:39pm Living Will Yes December 11, 2024 8:45am Do you have a Healthcare Pow er of Quality Systems Specialist? Yes December 11, 2024 8:45am Name of Medical Power of Quality Systems Specialist SON AND DAUGHT ER December 11, 2024 8:45am Advance Directive Response Recorded Date/ Time Living Will No May 28, 2024 11:58am Do you have a Healthcare Pow er of Quality Systems Specialist? No May 28, 2024 11:58am Living Will No November 12 025 2:53pm Do you have a Healthcare Pow er of Quality Systems Specialist? No November 12, 2024 2:53pm Living Will No January 09, 2025 2:14pm Do you have a Healthcare Pow er of Quality Systems Specialist? No January 09, 2025 2:14pm Advance Directives No January 09 025 2:14pm Living Will No November 23, 2024 4:39pm Do you have a Healthcare Pow er of Quality Systems Specialist? No November 23, 2024 4:39pm Living Will Yes December 11, 2024 8:45am Do you have a Healthcare Pow er of Quality Systems Specialist? Yes December 11, 2024 8:45am Name of Medical Power of Quality Systems Specialist SON [employer] DAUGHT ER December 11, 2024 8:45am Do you have a Healthcare Pow er of Quality Systems Specialist? Yes January 09, 2025 8:02pm Name of Medical Power of Quality Systems Specialist Goyo Malloy shade January 09, 2025 4:01pm Advance Directive Response Recorded Date/ Time Living Will No May 28, 2024 11:58am Do you have a Healthcare Pow er of Quality Systems Specialist? No May 28, 2024 11:58am Living Will No November 12 025 2:53pm Do you have a Healthcare Pow er of Quality Systems Specialist? No November 12, 2024 2:53pm Living Will No February 06, 2025 1 2:18pm Do you have a Healthcare Pow er of Quality Systems Specialist? No February 06, 2025 12:18pm Advance Directives No February 06 12:18pm Do you have a Healthcare Pow er of Quality Systems Specialist? Yes February 11, 2025 3:02pm Living Will No November 23, 2024 4:39pm Do you have a Healthcare Pow er of Quality Systems Specialist? No November 23, 2024 4:39pm Living Will Yes December 11, 2024 8:45am Do you have a Healthcare Pow er of Quality Systems Specialist? Yes December 11, 2024 8:45am Name of Medical Power of Quality Systems Specialist SON [employer] DAUGHT ER December 11, 2024 8:45am Do you have a Healthcare Pow er of Quality Systems Specialist? Yes January 09, 2025 8:02pm Name of Medical Power of Quality Systems Specialist Goyo laguerre January 09, 2025 4:01pm Advance Directive Response Recorded Date/ Time Living Will No May 28, 2024 11:58am Do you have a Healthcare Pow er of Quality Systems Specialist? No May 28, 2024 11:58am Living Will No November 12 2:53pm Do you have a Healthcare Pow er of Quality Systems Specialist? No November 12, 2024 2:53pm Living Will No February 24, 2025 8:19am Do you have a Healthcare Pow er of Quality Systems Specialist? No February 24, 2025 8:19am Advance Directives No February 24 8:19am Do you have a Healthcare Pow er of Quality Systems Specialist? Yes February 11, 2025 3:02pm Living Will No November 23, 2024 4:39pm Do you have a Healthcare Pow er of Quality Systems Specialist? No November 23, 2024 4:39pm Living Will Yes December 11, 2024 8:45am Do you have a Healthcare Pow er of Quality Systems Specialist? Yes December 11, 2024 8:45am Name of Medical Power of Quality Systems Specialist SON AND DAUGHT ER December 11, 2024 8:45am Do you have a Healthcare Pow er of Quality Systems Specialist? Yes January 09, 2025 8:02pm Name of Medical Power of Quality Systems Specialist Goyo laguerre January 09, 2025 4:01pm Advance Directive Response Recorded Date/ Time Living Will No February 27, 2025 2:42pm Do you have a Healthcare Pow er of Quality Systems Specialist? No February 27, 2025 2:42pm Advance Directives No February 27 2:42pm Do you have a Healthcare Pow er of Quality Systems Specialist? Yes February 11, 2025 3:02pm Living Will No November 23, 2024 4:39pm Do you have a Healthcare Pow er of Quality Systems Specialist? No November 23, 2024 4:39pm Living Will Yes December 11, 2024 8:45am Do you have a Healthcare Pow er of Quality Systems Specialist? Yes December 11, 2024 8:45am Name of Medical Power of Quality Systems Specialist SON AND DAUGHT ER December 11, 2024 8:45am Do you have a Healthcare Pow er of Quality Systems Specialist? Yes January 09, 2025 8:02pm Name of Medical Power of Quality Systems Specialist Goyo laguerre January 09, 2025 4:01pm Chief [...] 8pm Regional lymph node metastasis present [facility] 2024 2:38pm 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 [...] 1am Regional lymph node metastasis present [facility] 2024 9:51am Small cell lung cancer December [...] m Regional lymph node metastasis present M ay 2024 7:56am Jaundice February 03, 2025 7:56a [...] EP IDURAL AT February 16, 2025 6:59am Chief Complaint Admit Date 3 M FU/discuss [...] EP IDURAL AT February 16, 2025 6:59am F/U LUNG CANCER IV CONTRAST ONLY Feb e 2024 6:55am Chief Complaint Admit Date 3 M FU/discuss [...] WKS - LABS - CARBO/ETOP/ATEZO January 7:56am Block, Lumbar,Epidural TRANSFORAMINAL EP IDURAL AT February 16, 2025 6:59am F/U LUNG CANCER IV CONTRAST ONLY Hari e 2024 6:55am 3 WKS - LABS - CARBO/ETOP/ATEZO- REVEIW SCANS February 24, 2025 7:52am LABS February 24, 2025 8:15 am Reason for Visit Admit Date Hypoxia November [...] of l litzy November 24, 2024 2:38pm 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 24, 2024 2:38pm Metastasis to bone November 24, 2024 2:3 8pm Metastasis to liver November 24, 2024 2:3 8pm Regional lymph node metastasis present [facility] 2024 2:38pm Jaundice November 24, 2024 2:3 8pm Bilateral lower extremity edema December 022024 12:19pm Small cell lung cancer December 02, 2024 12:19pm Metastasis to bone December 02, 2024 12: 19pm Metastasis to liver December 02, 2024 12: 19pm Regional lymph node metastasis present [facility] 2024 12:19pm Jaundice December 02, 2024 12: 19pm Bilateral lower extremity edema December 092024 9:51am Small cell lung cancer December 09, 2024 9:51am Metastasis to bone December 09, 2024 9:5 1am Metastasis to liver December 09, 2024 9:5 1am Regional lymph node metastasis present M arch 2024 9:51am Encounter for insertion of venous access port December 10, 2024 12:33pm 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 December 10, 2024 12:33pm Bilateral lower extremity edema December 7:48am Encounter for chemotherapy management Ap ril 2024 7:48am Internal hemorrhoids December 16, 2024 7:4 8am Small cell lung cancer December 16, 2024 7 :48am Metastasis to bone December 16, 2024 7:48 am Metastasis to liver December 16, 2024 7:48 am Regional lymph node metastasis present A pril 2024 7:48am Port-A-Cath in place December 22, 2024 1:0 0pm Bilateral lower extremity edema December 292024 12:42pm Internal hemorrhoids December 29, 2024 12 :42pm Small cell lung cancer December 29, 2024 12:42pm Metastasis to bone December 29, 2024 12: 42pm Metastasis to liver December 29, 2024 12: 42pm Regional lymph node metastasis present A pril 2024 12:42pm Small cell lung cancer January 06, 2025 7:58am Metastasis to bone January 06, 2025 7:5 8am Metastasis to liver January 06, 2025 7:5 8am Regional lymph node metastasis present A pril 2024 7:58am Jaundice January 06, 2025 7:5 8am [...] m Regional lymph node metastasis present M ay 2024 7:56am Jaundice February 03, 2025 7:56a m 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 February 24, 2025 7:52am Metastasis to bone February 24, 2025 7:52 am Metastasis to liver February 24, 2025 7:52 am Regional lymph node metastasis present J [facility] 2024 7:52am Chief Complaint Admit Date WEAKNESS November 23, 2024 3:39 pm LUNG [...] WKS - LABS - CARBO/ETOP/ATEZO January 7:56am Block, Lumbar,Epidural TRANSFORAMINAL EP IDURAL AT February 16, 2025 6:59am F/U LUNG CANCER IV CONTRAST ONLY Feb 6:55am 3 WKS - LABS - CARBO/ETOP/ATEZO- REVEIW SCANS February 24, 2025 7:52am 3 WKS - LABS - CARBO/ETOP/ATEZO February 7:48am LABS March 16, 2025 8:15 am Reason for Visit Admit Date 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 November 24, 2024 2:38pm 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 24, 2024 2:38pm Metastasis to bone November 24, 2024 2:3 8pm Metastasis to liver November 24, 2024 2:3 8pm Regional lymph node metastasis present M [facility] 2024 2:38pm Jaundice November 24, 2024 2:3 8pm Bilateral lower extremity edema December 022024 12:19pm Small cell lung cancer December 02, 2024 12:19pm Metastasis to bone December 02, 2024 12: 19pm Metastasis to liver December 02, 2024 12: 19pm Regional lymph node metastasis present M arch 2024 12:19pm Jaundice December 02, 2024 12: 19pm Bilateral lower extremity edema December 092024 9:51am Small cell lung cancer December 09, 2024 9:51am Metastasis to bone December 09, 2024 9:5 1am Metastasis to liver December 09, 2024 9:5 1am Regional lymph node metastasis present M arch 2024 9:51am Encounter for insertion of venous access port December 10, 2024 12:33pm 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 December 10, 2024 12:33pm Bilateral lower extremity edema December 7:48am Encounter for chemotherapy management Ap 2024 7:48am Internal hemorrhoids December 16, 2024 7:4 8am Small cell lung cancer December 16, 2024 7 :48am Metastasis to bone December 16, 2024 7:48 am Metastasis to liver December 16, 2024 7:48 am Regional lymph node metastasis present A pril 2024 7:48am Port-A-Cath in place December 22, 2024 1:0 0pm Bilateral lower extremity edema December 292024 12:42pm Internal hemorrhoids December 29, 2024 12 :42pm Small cell lung cancer December 29, 2024 12:42pm Metastasis to bone December 29, 2024 12: 42pm Metastasis to liver December 29, 2024 12: 42pm Regional lymph node metastasis present A pril 2024 12:42pm Small cell lung cancer January 06, 2025 7:58am Metastasis to bone January 06, 2025 7:5 8am Metastasis to liver January 06, 2025 7:5 8am Regional lymph node metastasis present A pril 2024 7:58am Jaundice January 06, 2025 7:5 8am [...] m Regional lymph node metastasis present M ay 2024 7:56am Jaundice February 03, 2025 7:56a m 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 February 24, 2025 7:52am Metastasis to bone February 24, 2025 7:52 am Metastasis to liver February 24, 2025 7:52 am Regional lymph node metastasis present J une 2024 7:52am 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, 2025 7:48am Metastasis to bone March 16, 2025 7:48 am Metastasis to liver March 16, 2025 7:48 am Regional lymph node metastasis present J une 2024 7:48am Reason for Referral Specialty Diagnoses / Procedures Referred By Contac t Referred To Contact Gastroenterology Diagnoses Screening for colon cancer Procedures CONSULT TO GASTROENTEROLOGY OFFICE/OUTPATIENT [facility] 60-74 MINUTES Girish Lemos MD [address] [place] [id number] Referral ID Status Reason Start Date Expiration Date Visits Requested Visits Authorized [id number] Authorized PCP Requested Referral 05/07/2023 05/06/2024 1 1 Specialty Diagnoses / Procedures Referred By Contac t Referred To Contact CT IMAGING Diagnoses Generalized abdominal pain Diarrhea, unspecified type Nausea Procedures CT ABD/PEL W IVCON CT ABD & PELVIS W/CONTRAST Oleg Fields, ALEXA.[employer] [address] [place] [id number] [address] [facility] [place] [address] Referral ID Status Reason Start Date Expiration Date V isits Requested Visits Authorized [id number] Closed Auto-Generate d Referral 10/16/2024 11/15/2025 1 1 Specialty Diagnoses / Procedures Referred By Contac t Referred To Contact Oncology Diagnoses Liver masses Procedures CONSULT TO ONCOLOGY OFFICE/OUTPATIENT [facility] 60 MINUTES Girish Lemos MD [address] [place] [id number] Referral ID Status Reason Start Date Expiration Date Visits Requested Visits Authorized [id number] Authorized PCP Requested Referral 10/17/2024 10/17/2025 1 1 Specialty Diagnoses / Procedures Referred By Contac t Referred To Contact Diagnoses Nausea and vomiting, unspecified vomiting type Girish Lemos MD [address] [place] [id number] Referral ID Status Reason Start Date Expiration Date Visits Re quested Visits Authorized [id number] Closed 1 1 Specialty Diagnoses / Procedures Referred By Contac t Referred To Contact CT IMAGING Diagnoses Liver masses Procedures CT CHEST W IVCON DIAGNOSTIC COMPUTED TOMOGRAPHY THORAX W/CONTRAST Girish Lemos MD [address] [place] [address] [address] [facility] [place] [address] Referral ID Status Reason Start Date Expiration Date Visits Requested Visits Authorized [id number] Authorized Auto-Generat ed Referral 10/17/2024 11/16/2025 1 1 Specialty Diagnoses / Procedures Referred By Contac t Referred To Contact Diagnoses Abnormal MRI, liver Procedures CONSULT TO HEPATOLOGY OFFICE/OUTPATIENT [facility] 60 MINUTES Oleg Fields APRN.[employer] [address] [place] [address] Referral ID Status Reason Start Date Expiration Date Visits Requested Visits Authorized [id number] Authorized PCP Requested Referral 10/16/2024 10/16/2025 1 1 Additional Source Comments INFORMATION SOURCE (unrecogn ized section and content) DATE CREATED AUTHOR 09/10/2020 [facility] DATE CREATED AUTHOR AUTHOR'S ORGANIZ ATION 06/14/2024 [facility] DATE CREATED AUTHOR AUTHOR'S ORGANIZ ATION 01/31/2025 [facility] DATE CREATED AUTHOR AUTHOR'S ORGANIZ ATION 03/22/2025 [facility] Goals (unrecognized section and content) Goals may [...] or prosecute any alcohol or drug abuse patient.[facility] HospitalIn the event this information is protected by the Federal Confidentiality of Alcohol and Drug Abuse Patient Records regulations: The Federal rules restrict any use of the information to criminally investigate or prosecute any alcohol or drug abuse patient.[facility] HospitalIn the event this information is protected by the Federal Confidentiality of Alcohol and Drug Abuse Patient Records regulations: The Federal rules restrict any use of the information to criminally investigate or prosecute any alcohol or drug abuse patient.[facility] HospitalIn the event this information is protected by the Federal Confidentiality of Alcohol and Drug Abuse Patient Records regulations: The Federal rules restrict any use of the information to criminally investigate or prosecute any alcohol or drug abuse patient.[facility] HospitalIn the event this information is protected by the Federal Confidentiality of Alcohol and Drug Abuse Patient Records regulations: The Federal rules restrict any use of the information to criminally investigate or prosecute any alcohol or drug abuse patient.[facility] HospitalIn the event this information is protected by the Federal Confidentiality of Alcohol and Drug Abuse Patient Records regulations: The Federal rules restrict any use of the information to criminally investigate or prosecute any alcohol or drug abuse patient.[facility] HospitalIn the event this information is protected by the Federal Confidentiality of Alcohol and Drug Abuse Patient Records regulations: The Federal rules restrict any use of the information to criminally investigate or prosecute any alcohol or drug abuse patient.[facility] HospitalIn the event this information is protected by the Federal Confidentiality of Alcohol and Drug Abuse Patient Records regulations: The Federal rules restrict any use of the information to criminally investigate or prosecute any alcohol or drug abuse patient.[facility] HospitalIn the event this information is protected by the Federal Confidentiality of Alcohol and Drug Abuse Patient Records regulations: The Federal rules restrict any use of the information to criminally investigate or prosecute any alcohol or drug abuse patient.[facility] HospitalIn the event this information is protected by the Federal Confidentiality of Alcohol and Drug Abuse Patient Records regulations: The Federal rules restrict any use of the information to criminally investigate or prosecute any alcohol or drug abuse patient.[facility] HospitalIn the event this information is protected by the Federal Confidentiality of Alcohol and Drug Abuse Patient Records regulations: The Federal rules restrict any use of the information to criminally investigate or prosecute any alcohol or drug abuse patient.[facility] HospitalIn the event this information is protected by the Federal Confidentiality of Alcohol and Drug Abuse Patient Records regulations: The Federal rules restrict any use of the information to criminally investigate or prosecute any alcohol or drug abuse patient.[facility] HospitalIn the event this information is protected by the Federal Confidentiality of Alcohol and Drug Abuse Patient Records regulations: The Federal rules restrict any use of the information to criminally investigate or prosecute any alcohol or drug abuse patient.[facility] HospitalIn the event this information is protected by the Federal Confidentiality of Alcohol and Drug Abuse Patient Records regulations: The Federal rules restrict any use of the information to criminally investigate or prosecute any alcohol or drug abuse patient.[facility] HospitalIn the event this information is protected by the Federal Confidentiality of Alcohol and Drug Abuse Patient Records regulations: The Federal rules restrict any use of the information to criminally investigate or prosecute any alcohol or drug abuse patient.[facility] HospitalIn the event this information is protected by the Federal Confidentiality of Alcohol and Drug Abuse Patient Records regulations: The Federal rules restrict any use of the information to criminally investigate or prosecute any alcohol or drug abuse patient.[facility] HospitalIn the event this information is protected by the Federal Confidentiality of Alcohol and Drug Abuse Patient Records regulations: The Federal rules restrict any use of the information to criminally investigate or prosecute any alcohol or drug abuse patient.[facility] HospitalIn the event this information is protected by the Federal Confidentiality of Alcohol and Drug Abuse Patient Records regulations: The Federal rules restrict any use of the information to criminally investigate or prosecute any alcohol or drug abuse patient.[facility] HospitalIn the event this information is protected by the Federal Confidentiality of Alcohol and Drug Abuse Patient Records regulations: The Federal rules restrict any use of the information to criminally investigate or prosecute any alcohol or drug abuse patient.[facility] HospitalIn the event this information is protected by the Federal Confidentiality of Alcohol and Drug Abuse Patient Records regulations: The Federal rules restrict any use of the information to criminally investigate or prosecute any alcohol or drug abuse patient.[facility] HospitalIn the event this information is protected by the Federal Confidentiality of Alcohol and Drug Abuse Patient Records regulations: The Federal rules restrict any use of the information to criminally investigate or prosecute any alcohol or drug abuse patient.[facility] HospitalIn the event this information is protected by the Federal Confidentiality of Alcohol and Drug Abuse Patient Records regulations: The Federal rules restrict any use of the information to criminally investigate or prosecute any alcohol or drug abuse patient.[facility] HospitalIn the event this information is protected by the Federal Confidentiality of Alcohol and Drug Abuse Patient Records regulations: The Federal rules restrict any use of the information to criminally investigate or prosecute any alcohol or drug abuse patient.[facility] HospitalIn the event this information is protected by the Federal Confidentiality of Alcohol and Drug Abuse Patient Records regulations: The Federal rules restrict any use of the information to criminally investigate or prosecute any alcohol or drug abuse patient.[facility] HospitalIn the event this information is protected by the Federal Confidentiality of Alcohol and Drug Abuse Patient Records regulations: The Federal rules restrict any use of the information to criminally investigate or prosecute any alcohol or drug abuse patient.[facility] HospitalIn the event this information is protected by the Federal Confidentiality of Alcohol and Drug Abuse Patient Records regulations: The Federal rules restrict any use of the information to criminally investigate or prosecute any alcohol or drug abuse patient.[facility] HospitalIn the event this information is protected by the Federal Confidentiality of Alcohol and Drug Abuse Patient Records regulations: The Federal rules restrict any use of the information to criminally investigate or prosecute any alcohol or drug abuse patient.[facility] HospitalIn the event this information is protected by the Federal Confidentiality of Alcohol and Drug Abuse Patient Records regulations: The Federal rules restrict any use of the information to criminally investigate or prosecute any alcohol or drug abuse patient.[facility] HospitalIn the event this information is protected by the Federal Confidentiality of Alcohol and Drug Abuse Patient Records regulations: The Federal rules restrict any use of the information to criminally investigate or prosecute any alcohol or drug abuse patient.[facility] HospitalIn the event this information is protected by the Federal Confidentiality of Alcohol and Drug Abuse Patient Records regulations: The Federal rules restrict any use of the information to criminally investigate or prosecute any alcohol or drug abuse patient.[facility] HospitalIn the event this information is protected by the Federal Confidentiality of Alcohol and Drug Abuse Patient Records regulations: The Federal rules restrict any use of the information to criminally investigate or prosecute any alcohol or drug abuse patient.[facility] HospitalIn the event this information is protected by the Federal Confidentiality of Alcohol and Drug Abuse Patient Records regulations: The Federal rules restrict any use of the information to criminally investigate or prosecute any alcohol or drug abuse patient.[facility] HospitalIn the event this information is protected by the Federal Confidentiality of Alcohol and Drug Abuse Patient Records regulations: The Federal rules restrict any use of the information to criminally investigate or prosecute any alcohol or drug abuse patient.[facility] HospitalIn the event this information is protected by the Federal Confidentiality of Alcohol and Drug Abuse Patient Records regulations: The Federal rules restrict any use of the information to criminally investigate or prosecute any alcohol or drug abuse patient.[facility] HospitalIn the event this information is protected by the Federal Confidentiality of Alcohol and Drug Abuse Patient Records regulations: The Federal rules restrict any use of the information to criminally investigate or prosecute any alcohol or drug abuse patient.[facility] HospitalIn the event this information is protected by the Federal Confidentiality of Alcohol and Drug Abuse Patient Records regulations: The Federal rules restrict any use of the information to criminally investigate or prosecute any alcohol or drug abuse patient.[facility] HospitalIn the event this information is protected by the Federal Confidentiality of Alcohol and Drug Abuse Patient Records regulations: The Federal rules restrict any use of the information to criminally investigate or prosecute any alcohol or drug abuse patient.[facility] HospitalIn the event this information is protected by the Federal Confidentiality of Alcohol and Drug Abuse Patient Records regulations: The Federal rules restrict any use of the information to criminally investigate or prosecute any alcohol or drug abuse patient.[facility] HospitalIn the event this information is protected by the Federal Confidentiality of Alcohol and Drug Abuse Patient Records regulations: The Federal rules restrict any use of the information to criminally investigate or prosecute any alcohol or drug abuse patient.[facility] HospitalIn the event this information is protected by the Federal Confidentiality of Alcohol and Drug Abuse Patient Records regulations: The Federal rules restrict any use of the information to criminally investigate or prosecute any alcohol or drug abuse patient.[facility] HospitalIn the event this information is protected by the Federal Confidentiality of Alcohol and Drug Abuse Patient Records regulations: The Federal rules restrict any use of the information to criminally investigate or prosecute any alcohol or drug abuse patient.[facility] HospitalIn the event this information is protected by the Federal Confidentiality of Alcohol and Drug Abuse Patient Records regulations: The Federal rules restrict any use of the information to criminally investigate or prosecute any alcohol or drug abuse patient.[facility] HospitalIn the event this information is protected by the Federal Confidentiality of Alcohol and Drug Abuse Patient Records regulations: The Federal rules restrict any use of the information to criminally investigate or prosecute any alcohol or drug abuse patient.[facility] HospitalIn the event this information is protected by the Federal Confidentiality of Alcohol and Drug Abuse Patient Records regulations: The Federal rules restrict any use of the information to criminally investigate or prosecute any alcohol or drug abuse patient.[facility] HospitalIn the event this information is protected by the Federal Confidentiality of Alcohol and Drug Abuse Patient Records regulations: The Federal rules restrict any use of the information to criminally investigate or prosecute any alcohol or drug abuse patient.[facility] HospitalIn the event this information is protected by the Federal Confidentiality of Alcohol and Drug Abuse Patient Records regulations: The Federal rules restrict any use of the information to criminally investigate or prosecute any alcohol or drug abuse patient.[facility] HospitalIn the event this information is protected by the Federal Confidentiality of Alcohol and Drug Abuse Patient Records regulations: The Federal rules restrict any use of the information to criminally investigate or prosecute any alcohol or drug abuse patient.[facility] HospitalIn the event this information is protected by the Federal Confidentiality of Alcohol and Drug Abuse Patient Records regulations: The Federal rules restrict any use of the information to criminally investigate or prosecute any alcohol or drug abuse patient.[facility] HospitalIn the event this information is protected by the Federal Confidentiality of Alcohol and Drug Abuse Patient Records regulations: The Federal rules restrict any use of the information to criminally investigate or prosecute any alcohol or drug abuse patient.[facility] HospitalIn the event this information is protected by the Federal Confidentiality of Alcohol and Drug Abuse Patient Records regulations: The Federal rules restrict any use of the information to criminally investigate or prosecute any alcohol or drug abuse patient.[facility] HospitalIn the event this information is protected by the Federal Confidentiality of Alcohol and Drug Abuse Patient Records regulations: The Federal rules restrict any use of the information to criminally investigate or prosecute any alcohol or drug abuse patient.[facility] HospitalIn the event this information is protected by the Federal Confidentiality of Alcohol and Drug Abuse Patient Records regulations: The Federal rules restrict any use of the information to criminally investigate or prosecute any alcohol or drug abuse patient.[facility] HospitalIn the event this information is protected by the Federal Confidentiality of Alcohol and Drug Abuse Patient Records regulations: The Federal rules restrict any use of the information to criminally investigate or prosecute any alcohol or drug abuse patient.[facility] HospitalIn the event this information is protected by the Federal Confidentiality of Alcohol and Drug Abuse Patient Records regulations: The Federal rules restrict any use of the information to criminally investigate or prosecute any alcohol or drug abuse patient.[facility] HospitalIn the event this information is protected by the Federal Confidentiality of Alcohol and Drug Abuse Patient Records regulations: The Federal rules restrict any use of the information to criminally investigate or prosecute any alcohol or drug abuse patient.[facility] HospitalIn the event this information is protected by the Federal Confidentiality of Alcohol and Drug Abuse Patient Records regulations: The Federal rules restrict any use of the information to criminally investigate or prosecute any alcohol or drug abuse patient.[facility] HospitalIn the event this information is protected by the Federal Confidentiality of Alcohol and Drug Abuse Patient Records regulations: The Federal rules restrict any use of the information to criminally investigate or prosecute any alcohol or drug abuse patient.[facility] HospitalIn the event this information is protected by the Federal Confidentiality of Alcohol and Drug Abuse Patient Records regulations: The Federal rules restrict any use of the information to criminally investigate or prosecute any alcohol or drug abuse patient.[facility] HospitalIn the event this information is protected by the Federal Confidentiality of Alcohol and Drug Abuse Patient Records regulations: The Federal rules restrict any use of the information to criminally investigate or prosecute any alcohol or drug abuse patient.[facility] HospitalIn the event this information is protected by the Federal Confidentiality of Alcohol and Drug Abuse Patient Records regulations: The Federal rules restrict any use of the information to criminally investigate or prosecute any alcohol or drug abuse patient.[facility] HospitalIn the event this information is protected by the Federal Confidentiality of Alcohol and Drug Abuse Patient Records regulations: The Federal rules restrict any use of the information to criminally investigate or prosecute any alcohol or drug abuse patient.[facility] HospitalIn the event this information is protected by the Federal Confidentiality of Alcohol and Drug Abuse Patient Records regulations: The Federal rules restrict any use of the information to criminally investigate or prosecute any alcohol or drug abuse patient.[facility] HospitalIn the event this information is protected by the Federal Confidentiality of Alcohol and Drug Abuse Patient Records regulations: The Federal rules restrict any use of the information to criminally investigate or prosecute any alcohol or drug abuse patient.[facility] HospitalIn the event this information is protected by the Federal Confidentiality of Alcohol and Drug Abuse Patient Records regulations: The Federal rules restrict any use of the information to criminally investigate or prosecute any alcohol or drug abuse patient.[facility] Reason for Visit (unrecogniz ed section and content) Reason Comments New Patient Specialty Diagnoses / Procedures Referred By Contac t Referred To Contact Oncology Diagnoses Liver masses Procedures CONSULT TO ONCOLOGY OFFICE/OUTPATIENT NEW HIGH MDM 60 MINUTES Girish Lemos MD [address] [place] [address] Phone: tel: fax: Referral ID Status Reason Start Date Expiration Date V isits Requested Visits Authorized [id number] Closed PCP Requested Referral 10/17/2024 10/17/2025 1 [...] of call back from [facility] [place] around 09/03/24 as requested with readings. Patient [...] CT ABD & PELVIS W/CONTRAST Oleg Fields, ALEXA.[employer]ER [address] [place] [address] [address] [facility] [place] [address] Referral ID Status Reason Start Date Expiration Date V isits Requested Visits Authorized [id number] Closed Auto-Generate d Referral 10/16/2024 11/15/2025 1 1 Reason Comments Follow Up discuss lab results and care plan, diarrhea x 3 days Reason Comments Results Reason Comments Orders Reason Comments Patient Request Reason Comments Radiology CT Specialty Diagnoses / Procedures [facility] To Contact CT IM[facility]ING Diagnoses Liver masses Procedures CT CHEST W IVCON DIAGNOSTIC COMPUTED TOMOGRAPHY THORAX W/CONTRAST Girish Lemos MD [address] [place] [address] Phone: tel: fax: CT IMAGING [place] [address] Referral ID Status Reason Start Date Expiration Date V isits Requested Visits Authorized [id number] Closed Auto-Generate d Referral 10/17/2024 11/16/2025 1 [...] Reason Onset Date Comments Refill Request 02/11/2025 Reason Onset Date Comments Refill Request 03/31/2025 Care Teams (unrecognized sec tion and content) Civil Celebrant Relationship Specialty Start Date End Date Girish Lemos MD [address] [facility] [address] PCP - General Family Practice 11/14/17 Civil Celebrant Relationship Specialty Start Date End Date Girish Lemos MD [address] [facility] [place] [address] PCP - General Family Practice 11/14/17 Civil Celebrant Relationship Specialty Start Date End Date Girish Lemos MD [employer] [facility] [place] [address] PCP - General Family Medicine 11/14/17 Civil Celebrant Relationship Specialty Start Date End Date Girish Lemos MD [employer] [facility] [place] [address] PCP - General Family Medicine 11/14/17 Civil Celebrant Relationship Specialty Start Date End Date Girish Lemos MD [address] [facility] [place] [address] PCP - General Family Medicine 11/14/17 Civil Celebrant Relationship Specialty Start Date End Date Girish Lemos MD [employer] [facility] [place] [address] PCP - General Family Medicine 11/14/17 Civil Celebrant Relationship Specialty Start Date End Date Girish Lemos MD [employer] [facility] [place] [address] PCP - General Family Medicine 11/14/17 Civil Celebrant Relationship Specialty Start Date End Date Girish Lemos MD [employer] [facility] [place] [address] PCP - General Family Medicine 11/14/17 Civil Celebrant Relationship Specialty Start Date End Date Girish Lemos MD [address] [place] [address] PCP - General Family Medicine 11/14/17 Civil Celebrant Relationship Specialty Start Date End Date Girish Lemos MD [address] [facility] [place] [address] PCP - General Family Medicine 11/14/17 Civil Celebrant Relationship Specialty Start Date End Date Girsih Lemos MD [address] [place] [address] PCP - General Family Medicine 11/14/17 Team Status: Active Member Role Status Dates DEFINED NOT Family Provider Active Dr. Fabricio Lemos MD Primary Care Provider Acti ve Team Status: Inactive Member Role Status Dates Dr. Fabricio Lemos MD Primary Care Provider, Ref erring Provider Active Roxann Gomez BLANKET WASHER, BLANKET WASHER-C Attending Provider Active Team Status: Inactive Member Role Status Dates Dr. Fabricio Lemos MD Primary Care Provider Acti ve Roxann Gomez BLANKET WASHER, BLANKET WASHER-C Attending Provider, Ref[facility] g Provider Active Civil Celebrant Relationship Specialty Start Date End Date Girish Lemos MD [address] [facility] [place] [address] PCP - General Family Medicine 11/14/17 Civil Celebrant Relationship Specialty Start Date End Date Girish Lemos MD [address] [facility] [place] [address] PCP - General Family Medicine 11/14/17 Civil Celebrant Relationship Specialty Start Date End Date Girish Lemos MD [address] [facility] [place] [address] PCP - General Family Medicine 11/14/17 Civil Celebrant Relationship Specialty Start Date End Date Girish Lemos MD [address] [facility] [place] [address] PCP - General Family Medicine 11/14/17 Civil Celebrant Relationship Specialty Start Date End Date Girish Lemos MD [address] [place] [address] PCP - General Family Medicine 11/14/17 Team [...] MD Attending Provider, Referring Pr ovider Active Civil Celebrant Relationship Specialty Start Date End Date Girish Lemos MD [address] [place] [address] PCP - General Family Medicine 11/14/17 Civil Celebrant Relationship Specialty Start Date End Date Girish Lemos MD [address] [place] [address] PCP - General Family Medicine 11/14/17 Civil Celebrant Relationship Specialty Start Date End Date Girish Lemos MD [address] [place] [address] PCP - General Family Medicine 11/14/17 Civil Celebrant Relationship Specialty Start Date End Date Girish Lemos MD [address] [place] [address] PCP - General Family Medicine 11/14/17 Civil Celebrant Relationship Specialty Start Date End Date Girish Lemos MD [address] [facility] [place] [address] PCP - General Family Medicine 11/14/17 Civil Celebrant Relationship Specialty Start Date End Date Girish Lemos MD [address] [facility] [place] [address] PCP - General Family Medicine 11/14/17 Civil Celebrant Relationship Specialty Start Date End Date Girish Lemos MD [address] [facility] [place] [address] PCP - General Family Medicine 11/14/17 Civil Celebrant Relationship Specialty Start Date End Date Girish Lemos MD [address] [facility] [place] [address] PCP - General Family Medicine 11/14/17 Civil Celebrant Relationship Specialty Start Date End Date Girish Lemos MD [address] [facility] [place] [address] PCP - General Family Medicine 11/14/17 Civil Celebrant Relationship Specialty Start Date End Date Girish Lemos MD [address] [facility] [place] [address] PCP - General Family Medicine 11/14/17 Civil Celebrant Relationship Specialty Start Date End Date Girish Lemos MD [address] [facility] [place] [address] PCP - General Family Medicine 11/14/17 Civil Celebrant Relationship Specialty Start Date End Date Girish Lemos MD [address] [facility] [place] [address] PCP - General Family Medicine 11/14/17 Civil Celebrant Relationship Specialty Start Date End Date Girish Lemos MD [address] [place], [place] [address] [phone] PCP - General Family Medicine 11/14/17 Podlogar, WILFRED ReidN.DIE POLISHER [address] [place] [address] Canvass Manager Family Medicine 08/23/24 Civil Celebrant Relationship Specialty Start Date End Date Girish Lemos MD [address] [place] [address] PCP - General Family Medicine 11/14/17 Podlogar, ALEXA Reid.DIE POLISHER [address] [place] [address] [facility] 08/23/24 Civil Celebrant Relationship Specialty Start Date End Date Girish Lemos MD [address] [place] [address] PCP - General Family Medicine 11/14/17 Podlogar, Jeanette, BRANCH OPERATION EVALUATION MANAGER.DIE POLISHER [address] [place] [address] [facility] 08/23/24 Civil Celebrant Relationship Specialty Start Date End Date Girish Lemos MD [address] [place] [address] PCP - General Family Medicine 11/14/17 Podlogar, Jeanette, BRANCH OPERATION EVALUATION MANAGER.DIE POLISHER [address] [place] [address] Canvass Manager Family Medicine 08/23/24 Civil Celebrant Relationship Specialty Start Date End Date Girish Lemos MD [address] [place] [address] PCP - General Family Medicine 11/14/17 Podlogar, Jeanette, BRANCH OPERATION EVALUATION MANAGER.DIE POLISHER [address] [place] [address] [facility] 08/23/24 Civil Celebrant Relationship Specialty Start Date End Date Girish Lemos MD [address] [facility] [place] [address] PCP - General Family Medicine 11/14/17 Podlogar, Jeanette, BRANCH OPERATION EVALUATION MANAGER.DIE POLISHER [address] [place] [address] [facility] 08/23/24 Civil Celebrant Relationship Specialty Start Date End Date Girish Lemos MD [address] [place] [address] PCP - General Family Medicine 11/14/17 Podlogar, Jeanette, BRANCH OPERATION EVALUATION MANAGER.DIE POLISHER [address] [place] [address] [facility] 08/23/24 Civil Celebrant Relationship Specialty Start Date End Date Girish Lemos MD [address] [place] [address] PCP - General Family Medicine 11/14/17 Podlogar, Jeanette, BRANCH OPERATION EVALUATION MANAGER.DIE POLISHER [address] [facility] [place] [address] [facility] 08/23/24 Civil Celebrant Relationship Specialty Start Date End Date Girish Lemos MD [address] [facility] [place], [place] [address] [phone] PCP - General Family Medicine 11/14/17 Podlogar, Jeanette, BRANCH OPERATION EVALUATION MANAGER.DIE POLISHER [address] [facility], [place] [address] [phone] Canvass Manager Family Medicine 08/23/24 Civil Celebrant Relationship Specialty Start Date End Date Girish Lemos MD [address] [place] [address] PCP - General Family Medicine 11/14/17 Podlogar, Jeanette, BRANCH OPERATION EVALUATION MANAGER.DIE POLISHER [address] [facility] [place] [address] [facility] 08/23/24 Civil Celebrant Relationship Specialty Start Date End Date Girish Lemos MD [address] [facility] [place] [address] PCP - General Family Medicine 11/14/17 Podlogar, Jeanette, BRANCH OPERATION EVALUATION MANAGER.DIE POLISHER [address] [place] [address] Canvass Manager Family Medicine 08/23/24 Civil Celebrant Relationship Specialty Start Date End Date Girish Lemos MD [address] [facility] [place] [address] PCP - General Family Medicine 11/14/17 Podlogar, Jeanette, BRANCH OPERATION EVALUATION MANAGER.DIE POLISHER [address] [facility] [place] [address] Canvass Manager Family Medicine 08/23/24 Civil Celebrant Relationship Specialty Start Date End Date Girish Lemos MD [address] [place] [address] PCP - General Family Medicine 11/14/17 Podlogar, Jeanette, BRANCH OPERATION EVALUATION MANAGER.DIE POLISHER [address] [place] [address] Canvass Manager Family Medicine 08/23/24 Civil Celebrant Relationship Specialty Start Date End Date Girish Lemos MD [address] [place] [address] PCP - General Family Medicine 11/14/17 Podlogar, Jeanette, BRANCH OPERATION EVALUATION MANAGER.DIE POLISHER [address] [place] [address] Canvass Manager Family Medicine 08/23/24 Roxann Gomez [address] [place] [address] Vascular Medicine 11/05/24 Civil Celebrant Relationship Specialty Start Date End Date Girish Lemos MD [address] [place] [address] PCP - General Family Medicine 11/14/17 Podlogar, Jeanette, BRANCH OPERATION EVALUATION MANAGER.DIE POLISHER [address] [place] [address] Canvass Manager Family Medicine 08/23/24 Roxann Gomez [address] [place] [address] Vascular Medicine 11/05/24 Silas Robbins MD [address] [place] [address] Hematology/Oncology 11/10/24 Civil Celebrant Relationship Specialty Start Date End Date Girish Lemos MD [address] [place] [address] PCP - General Family Medicine 11/14/17 PodlogarJeanette APRN.DIE POLISHER [address] [place] [address] Canvass Manager Family Medicine 08/23/24 Roxann Gomez [address] [place] [phone] Vascular Medicine 11/05/24 Silas Robbins MD [address] [place] [address] Hematology/Oncology 11/10/24 Civil Celebrant Relationship Specialty Start Date End Date Girish Lemos MD [address] [place] [address] PCP - General Family Medicine 11/14/17 PodlogarJeanette APRN.DIE POLISHER [address] [place] [address] Canvass Manager Family Medicine 08/23/24 Roxann Gomez [address] [place] [address] Vascular Medicine 11/05/24 Silas Robbins MD [address] [place] [address] Hematology/Oncology 11/10/24 Team Status: Active Member Role Status Dates Dr. Fabricio Lemos MD Primary Care Provider Acti ve Team Status: Inactive Member Role Status Dates Dr. Fabricio Lemos MD Primary Care Provider Acti ve Start: November 03, 2024 End: November 03, 2024 Dr. Fabricio Lemos MD Referring Provider Active Start: November 03, 2024 End: November 03, 2024 Roxann Gomez BLANKET WASHER, BLANKET WASHER-C Attending Provider Active Start: November 03, 2024 End: November 03, 2024 Team Status: Inactive Member Role Status Dates Dr. Fabricio Lemos MD Primary Care Provider Acti ve Start: November 11, 2024 End: November 11, 2024 Roxann Gomez BLANKET WASHER, BLANKET WASHER-C Attending Provider Active Start: November 11, 2024 End: November 11, 2024 Roxann Gomez BLANKET WASHER, BLANKET WASHER-C Referring Provider Active Start: November 11, 2024 [...] Acti ve Start: November 15, 2024 Austin aMck MD Emergency Provider Active Star t: November [...] 2024 End: November 24, 2024 Roxann Gomez NP, BLANKET WASHER-C Referring Provider Active Start: November 24, 2024 [...] 2024 End: December 02, 2024 Sharda Bronson BLANKET WASHER, BLANKET WASHER-C Attending Provider Active Start: December 02, 2024 [...] 2024 End: December 09, 2024 Sharda Bronson BLANKET WASHER, BLANKET WASHER-C Attending Provider Active Start: December 09, 2024 [...] Provider Active S tart: December 12, 2024 Civil Celebrant Relationship Specialty Start Date End Date Girish Lemos MD [address] [place], [place] [address] PCP - General Family Medicine 11/14/17 PodJeanette tobar APRN.DIE POLISHER [address] [place], [place] [address] Canvass Manager Family Medicine 08/23/24 Roxann Gomez [address] [place] [address] Vascular Medicine 11/05/24 Silas Robbins MD [address] [place], [place] [address] Hematology/Oncology 11/10/24 Oleg Fields APRN.DIE POLISHER [address] [place], [place] [address] Canvass Manager Family Medicine 12/08/24 Civil Celebrant Relationship Specialty Start Date End Date Girish Lemos MD [address] [place], [place] [address]85[address] PCP - General Family Medicine 11/14/17 PodlogarJeanette APRN.DIE POLISHER [address] [place] [place] [address] Canvass Manager [facility] 08/23/24 Roxann Gomez [address] [place] [address] Vascular Medicine 11/05/24 Silas Robbins MD [address] [place] [address] Hematology/Oncology 11/10/24 Oleg Fields APRN.DIE POLISHER [address] [place] [address] [facility] 12/08/24 Civil Celebrant Relationship Specialty Start Date End Date Girish Lemos MD [address] [place] [address] PCP - General Family Medicine 11/14/17 Podlogar, ALEXA Reid.DIE POLISHER [address] [place] [place] [address] [facility] 08/23/24 Roxann Gomez [address] [place] [address] Vascular Medicine 11/05/24 Silas Robbins MD [address] [place] [address] Hematology/Oncology 11/10/24 Oleg Fields APRN.DIE POLISHER [address] [place] [address] [facility] 11/28/24 12/07/24 Oleg Fields APRN.DIE POLISHER [employer] [place] [address] [facility] 12/08/24 Team Status: Inactive Member Role Status Dates Dr. Fabricio Lemos MD Primary Care Provider Acti ve Start: December 16, 2024 End: December 16, 2024 Dr. Fabricio Lemos MD Referring Provider Active Start: December 16, 2024 End: December 16, 2024 Sharda Bronson BLANKET WASHER, BLANKET WASHER-C Attending Provider Active Start: December 16, 2024 [...] 2024 End: December 29, 2024 Sharda Bronson NP, BLANKET WASHER-C Attending Provider Active Start: December 29, 2024 [...] Provider Active Sta rt: January 10, 2025 Civil Celebrant Relationship Specialty Start Date End Date Girish Lemos MD [address] [place], [place] [address] PCP - General Family Medicine 11/14/17 MaksimlogJeanette gibbons APRN.CNP [address] [place], [place] [address] Canvass Manager Family Medicine 08/23/24 Roxann Gomez [address] [place] [address] Vascular Medicine 11/05/24 Silas Robbins MD [address] [place] [address] Hematology/Oncology 11/10/24 Oleg Fields APRN.DIE POLISHER [address] [place] [address] [facility] 12/08/24 Civil Celebrant Relationship Specialty Start Date End Date Girish Lemos MD [address] [facility] [place] [address] PCP - General Family Medicine 11/14/17 PodlogarJeanette APRN.DIE POLISHER [address] [facility] [place] [address] [facility] Medicine 08/23/24 Roxann Gomez [address] [place] [address] Vascular Medicine 11/05/24 Silas Robbins MD [address] [place] [address] Hematology/Oncology 11/10/24 Oleg Fields APRN.DIE POLISHER [address] [place] [address] [facility] 12/08/24 Civil Celebrant Relationship Specialty Start Date End Date Girsih Lemos MD [address] [place] [address] PCP - General Family Medicine 11/14/17 PodlogarJeanette APRN.DIE POLISHER [address] [place] [address] Canvass Manager [facility] 08/23/24 Roxann Gomez [address] [place] [address] Vascular Medicine 11/05/24 Silas Robbins MD [address] [place] [address] Hematology/Oncology 11/10/24 Oleg Fields APRN.DIE POLISHER [address] [place] [address] [facility] 12/08/24 Civil Celebrant Relationship Specialty Start Date End Date Girish Lemos MD [address] [place] [address] PCP - General Family Medicine 11/14/17 Podlogar, ALEXA Reid.DIE POLISHER [address] [place] [address] [facility] 08/23/24 Roxann Gomez [address] [place] [address] Vascular Medicine 11/05/24 Silas Robbins MD [address] [place] [address] Hematology/Oncology 11/10/24 Oleg Fields, BRANCH OPERATION EVALUATION MANAGER.DIE POLISHER [address] [place], [place] [address] [facility] 12/08/24 Civil Celebrant Relationship Specialty Start Date End Date Griish Lemos MD [address] [place], [place] [address] PCP - General Family Medicine 11/14/17 PodlogarJeanette BRANCH OPERATION EVALUATION MANAGER.DIE POLISHER [address] [place], [place] [address] [facility] 08/23/24 Roxann Gomez [address] [place] [address] Vascular Medicine 11/05/24 Silas Robbins MD [address] [place], [place] [address] Hematology/Oncology 11/10/24 Oleg Fields, BRANCH OPERATION EVALUATION MANAGER.DIE POLISHER [address] [place], [place] [address] [facility] 12/08/24 Team Status: Active Member Role Status [...] Referring Provider Active Start: February 03, 2025 Civil Celebrant Relationship Specialty Start Date End Date Girish Lemos MD [address] [facility], [place] [id number] PCP - General Family Medicine 11/14/17 Jeanette Berrios APRN.CNP [address] [facility], [place] [address] Canvass Manager Family Medicine 08/23/24 Roxann Gomez [address] [place] [address] Vascular Medicine 11/05/24 Silas Robbins MD [address] [place], [place] [address] Hematology/Oncology 11/10/24 Team Status: Active Member Role [...] February 16, 2025 End: February 16, 2025 Team Status: Inactive Member Role Status Dates Dr. Fabricio Lemos MD Primary Care Provider Acti ve Start: February 17, 2025 End: February 17, 2025 Dr. Sherice Fernandez MD Attending Provider Active Start: February 17, 2025 End: February 17, 2025 Dr. Sherice Fernandez MD Referring Provider Active Start: February 17, 2025 End: February 17, 2025 Team Status: Inactive Member Role Status Dates Dr. Fabricio Lemos MD Primary Care Provider Acti ve Start: February 24, 2025 End: February 24, 2025 Dr. Fabricio Lemos MD Referring Provider Active Start: February 24, 2025 End: February 24, 2025 Dr. Sherice Fernandez MD Attending Provider Active Start: February 24, 2025 End: February 24, 2025 Team Status: Active Member Role Status Dates Dr. Fabricio Lemos MD Primary Care Provider Acti ve Start: February 24, 2025 Dr. Sherice Fernandez MD Attending Provider Active Start: February 24, 2025 Dr. Sherice Fernandez MD Referring Provider Active Start: February 24, 2025 Team Status: Active Member Role/Relationship Status Dates Dr. Fabricio Lemos MD Primary Care Provider Acti ve Team Status: Inactive Member Role/Relationship Status Dates Dr. Fabricio Lemos MD Primary Care Provider Acti ve Start: November 23, 2024 End: November 23, 2024 Dr. Alex Mercado MD Attending Provider Active S tart: November 23, 2024 End: November 23, 2024 Dr. Alex Mercado MD Emergency Provider Active S tart: November 23, 2024 End: November 23, 2024 Team Status: Inactive Member Role/Relationship Status Dates Dr. Fabricio Lemos MD Primary Care Provider Acti ve Start: November 24, 2024 End: November 24, 2024 Roxann Gomez NP BLANKET WASHER-C Referring Provider Active Start: November 24, 2024 End: November 24, 2024 Dr. Sherice Fernandez MD Attending Provider Active Start: November 24, 2024 End: November 24, 2024 Team Status: Inactive Member Role/Relationship Status Dates Dr. Fabricio Lemos MD Primary Care Provider Acti ve Start: December 02, 2024 End: December 02, 2024 Dr. Fabricio Lemos MD Referring Provider Active Start: December 02, 2024 End: December 02, 2024 Sharda Bronson NP, BLANKET WASHER-C Attending Provider Active Start: December 02, 2024 End: December 02, 2024 Team Status: Inactive Member Role/Relationship Status Dates Dr. Fabricio Lemos MD Primary Care Provider Acti ve Start: December 03, 2024 End: December 03, 2024 Dr. Sherice Fernandez MD Attending Provider Active Start: December 03, 2024 End: December 03, 2024 Dr. Sherice Fernandez MD Referring Provider Active Start: December 03, 2024 End: December 03, 2024 Team Status: Inactive Member Role/Relationship Status Dates Dr. Fabricio Lemos MD Primary Care Provider Acti ve Start: December 09, 2024 End: December 09, 2024 Dr. Fabricio Lemos MD Referring Provider Active Start: December 09, 2024 End: December 09, 2024 Sharda Bronson NP, BLANKET WASHER-C Attending Provider Active Start: December 09, 2024 End: December 09, 2024 Team Status: Inactive Member Role/Relationship Status Dates Dr. Fabricio Lemos MD Primary Care Provider Acti ve Start: December 10, 2024 End: December 10, 2024 Dr. Fabricio Lemos MD Referring Provider Active Start: December 10, 2024 End: December 10, 2024 Dr. Yeimi Sorto MD Attending Provider Active Start: December 10, 2024 End: December 10, 2024 Team Status: Inactive Member Role/Relationship Status Dates Dr. Fabricio Lemos MD Primary Care Provider Acti ve Start: December 12, 2024 End: December 12, 2024 Dr. Yeimi Sorto MD Attending Provider Active Start: December 12, 2024 End: December 12, 2024 Dr. Yeimi Sorto MD Referring Provider Active Start: December 12, 2024 End: December 12, 2024 Team Status: Active Member Role/Relationship Status Dates Dr. Fabricio Lemos MD Primary Care Provider Acti ve Start: December 12, 2024 Dr. Yeimi Sorto MD Attending Provider Active Start: December 12, 2024 Dr. Yeimi Sorto MD Referring Provider Active Start: December 12, 2024 Dr. Yeimi Sorto MD Other Provider Active S tart: December 12, 2024 Team Status: Inactive Member Role/Relationship Status Dates Dr. Fabricio Lemos MD Primary Care Provider Acti ve Start: December 16, 2024 End: December 16, 2024 Dr. Fabricio Lemos MD Referring Provider Active Start: December 16, 2024 End: December 16, 2024 Sharda Bronson NP BLANKET WASHER-C Attending Provider Active Start: December 16, 2024 End: December 16, 2024 Team Status: Inactive Member Role/Relationship Status Dates Dr. Fabricio Lemos MD Primary Care Provider Acti ve Start: December 22, 2024 End: December 22, 2024 Dr. Fabricio Lemos MD Referring Provider Active Start: December 22, 2024 End: December 22, 2024 Rachael BENNETT PAShanikaC Attending Provider Active Start: December 22, 2024 End: December 22, 2024 Team Status: Inactive Member Role/Relationship Status Dates Dr. Fabricio Lemos MD Primary Care Provider Acti ve Start: December 29, 2024 End: December 29, 2024 Dr. Fabricio Lemos MD Referring Provider Active Start: December 29, 2024 End: December 29, 2024 Sharda Bronson NP BLANKET WASHER-C Attending Provider Active Start: December 29, 2024 End: December 29, 2024 Team Status: Inactive Member Role/Relationship Status Dates Dr. Fabricio Lemos MD Primary Care Provider Acti ve Start: January 06, 2025 End: January 06, 2025 Dr. Fabricio Lemos MD Referring Provider Active Start: January 06, 2025 End: January 06, 2025 Dr. Sherice Fernandez MD Attending Provider Active Start: January 06, 2025 End: January 06, 2025 Team Status: Inactive Member Role/Relationship Status Dates Dr. Fabricio Lemos MD Primary [...] January 10, 2025 Team Status: Active Member Role/Relationship Status Dates Dr. Fabricio Lemos MD Primary Care Provider Acti ve Start: January 09, 2025 End: January 09, 2025 Dr. Man Polo MD Attending Provider Active S tart: January 09, 2025 End: January 09, 2025 Dr. Estrella Cabezas MD Referring Provider Active Start: January 09, 2025 End: January 09, 2025 Team Status: Active Member Role/Relationship Status Dates Dr. Fabricio Lemos MD Primary Care Provider Acti ve Start: January 10, 2025 Dr. Santi Hurd MD Attending Provider Active Start: January 10, 2025 Team Status: Active Member Role/Relationship Status Dates Dr. Fabricio Lemos MD Primary [...] January 10, 2025 Team Status: Inactive Member Role/Relationship Status Dates Dr. Fabricio Lemos MD Primary Care Provider Acti ve Start: February 03, 2025 End: February 03, 2025 Dr. Fabricio Lemos MD Referring Provider Active Start: February 03, 2025 End: February 03, 2025 Dr. Sherice Fernandez MD Attending Provider Active Start: February 03, 2025 End: February 03, 2025 Team Status: Inactive Member Role/Relationship Status Dates Dr. Fabricio Lemos MD Primary Care Provider Acti ve Start: February 16, 2025 End: February 16, 2025 Dr. Az Hoffmann MD Attending Provider Active Start: February 16, 2025 End: February 16, 2025 Dr. Az Hoffmann MD Referring Provider Active Start: February 16, 2025 End: February 16, 2025 Team Status: Inactive Member Role/Relationship Status Dates Dr. Fabricio Lemos MD Primary Care Provider Acti ve Start: February 17, 2025 End: February 17, 2025 Dr. Sherice Fernandez MD Attending Provider Active Start: February 17, 2025 End: February 17, 2025 Dr. Sherice Fernandez MD Referring Provider Active Start: February 17, 2025 End: February 17, 2025 Team Status: Inactive Member Role/Relationship Status Dates Dr. Fabricio Lemos MD Primary Care Provider Acti ve Start: February 24, 2025 End: February 24, 2025 Dr. Fabricio Lemos MD Referring Provider Active Start: February 24, 2025 End: February 24, 2025 Dr. Sherice Fernandez MD Attending Provider Active Start: February 24, 2025 End: February 24, 2025 Team Status: Inactive Member Role/Relationship Status Dates Dr. Fabricio Lemos MD Primary Care Provider Acti ve Start: March 16, 2025 End: March 16, 2025 Dr. Fabricio Lemos MD Referring Provider Active Start: March 16, 2025 End: March 16, 2025 Dr. Sherice Fernandez MD Attending Provider Active Start: March 16, 2025 End: March 16, 2025 Team Status: Active Member Role/Relationship Status Dates Dr. Fabricio Lemos MD Primary Care Provider Acti ve Start: March 16, 2025 Dr. Sherice Fernandez MD Attending Provider Active Start: March 16, 2025 Dr. Sherice Fernandez MD Referring Provider Active Start: March 16, 2025 Civil Celebrant Relationship Specialty Start Date End Date Girish Lemos MD [address] [place], [place] [id number] PCP - General Family Medicine 11/14/17 Jeanette Berrios APRN.DIE [employer]ISHER [address] [place], [place] [id number] [facility] 08/23/24 Roxann Gomez [address] [place] [address] Vascular Medicine 11/05/24 Silas Robbins MD [address] [place], [place] [id number] Hematology/Oncology 11/10/24 Oleg Fields APRN.DIE [employer]ISHER [address] [place], [place] [phone] [facility] 02/26/25 FOR RECORDS PERTAINING TO PATIENTS WHO ARE [...] BE BASED ON THE PRIMARY CLINICAL RECORDS. [employer] provides no warranty or guarantee of the accuracy or completeness of information in this document.
[2025-04-05 20:20] LABS: Hematocrit 25.5 % (37-47); Hemoglobin 8.6 g/dL (12.0-15.0); Immature Granulocytes Count 0.040 X10^3/uL (0.0-0.0); Mean Corp Hgb Conc 33.7 g/dL (32-36); Mean Corpuscular Volume 98.1 fL (81-99); Mean Platelet Vol. 11.2 fl (6.2-12.0); NRBC Flagged by Analyzer 0 % (0-5); Platelet Count 134 K/mm3 (150-450); RBC Distribution Width CV 16.9 % (11.6-14.6); RBC Distribution Width SD 59.0 fl (35.1-43.9); Red Blood Count 2.60 M/mm3 (4.2-5.4); White Blood Count 5.8 K/mm3 (4.4-11.0)
[2025-04-05 20:22] VITALS: BMI 25.0
[2025-04-05 20:46] LABS: Anion Gap 14 (5-15); BUN 6 mg/dL (4-19); BUN/Creat Ratio 6.2 RATIO (10-20); Calcium,Total 9.8 mg/dL (7.6-11.0); Carbon Dioxide 23.7 mmol/L (21.0-32.0); Chloride 103 mmol/L (98-108); Estimated Creatinine Clearance 51.80 ml/min (50-250); Glucose 127 mg/dL (70-99); Potassium 3.3 mmol/L (3.3-5.1)
[2025-04-05 21:36] VITALS: BP 147/74; PULSE 75; RESP 14; O2SAT 99
[2025-04-05 22:20] VITALS: BP 145/78; PULSE 75; RESP 14; TEMP 36.6; O2SAT 99
== END 2025-04-05 22:21 | disposition home or self-care (01) ==
PROVIDERS: Emergency Provider Emergency Medicine; PCP Family Medicine; Visit Provider Emergency Medicine
DX: M51.16 Intervertebral disc disorders with radiculopathy, lumbar region (principal); Z87.891 Personal history of nicotine dependence
CPT/HCPCS: 72132; 80048; 85025; 96374; 96375; 99282; Q9967; A4216; J2405

== ENCOUNTER → 2025-04-06 | Outpatient (CLI) | payer MEDICARE, SELFPAY ==
--- NOTE | 2025-04-06 15:05 | MRI_ITS ---
PROCEDURE: SPINE LUMBAR W/WO CONTRAST 04/06/2025 REASON FOR EXAM: LEFT HIP PAIN, LLE WEAKNESS; SCLC MET TO BONE TECHNIQUE: SPINE LUMBAR W/WO CONTRAST Multiplanar and multisequence images were obtained without and with intravenous gadolinium-based contrast administration. CONTRAST: Clariscan VOLUME: 13 mL COMPARISON: Lumbar spine CT 04/05/2025. FINDINGS: 5 [id number] lumbar-type vertebrae are preserved in height, with anatomic alignment. No acute fracture or subluxation. Heterogeneous marrow signal abnormality with several T1 hypointense enhancing marrow lesions, compatible with osseous metastatic disease. Most prominent lesions are seen within the right aspect of T12 vertebral body, occupying nearly the entire vertebral body at L2, right aspect of L3, within and slightly expanding the spinous process of L4, posterior left aspect of L5, and dorsal aspect of S1. Several additional metastatic lesions are seen in the partially included sacrum and bilateral iliac bones. There appears to be subtle enhancing dorsal epidural disease extension at L4 at the midline. Otherwise, no mass lesion or pathologic enhancement is seen elsewhere within the spinal canal. No nodularity of the cauda equina nerve roots appreciated. Mild multilevel spondylotic changes with varying degrees of disc desiccation and narrowing, endplate osteophytosis, and hypertrophic facet arthropathy. L1-2: No disc bulge, spinal canal or neural foraminal narrowing. L2-3: No disc bulge, spinal canal or neural foraminal narrowing. L3-4: No significant disc bulge, spinal canal or foraminal narrowing. L4-5: Mild broad-based dorsal annular disc bulge, combined with [id number]-[id number]-[id number]-right ligamentum flavum and facet hypertrophy, results in mild spinal canal narrowing. Mild right and moderate-advanced left neural foraminal narrowing. Probable thin enhancing dorsal epidural enhancing tissue. L5-S1: No disc bulge or spinal canal narrowing. Mild bilateral foraminal narrowing. MRI/Spine Lumbar W/WO Contrast IMPRESSION: 1. Numerous osseous metastatic lesions as described. No pathologic fracture. 2. Probable thin enhancing dorsal epidural disease extension at the L4 level. 3. No substantial spinal canal narrowing. Mild spondylotic changes with modera te-advanced left neural foraminal narrowing at L4-5, more mild at the remaining levels. Reading Location: [id number]
--- OUTSIDE RECORDS SUMMARY | 2025-04-06 20:46 | XMS RPT_ITS | CCD ---
Author Organization [facility] Care Team Providers Care Contact Center Specialist Name Role Phone MARCAEE, TONI TEREAZZAM Attending Unav ailable TAVALLAEE, TONI MONAZZAM Attending Unav ailable TAVALLAEE, TONI MONAZZAM Attending Unav ailable TAVALLAEE, TONI MONANGELINEZAM Attending Unav ailable TAVALLLAURAE, TONI MARGARITO Attending Unav ailable Dr. Fabricio Lemos Primary Care Provider Dr. Fabricio Lemos Referring Provider Patricia SYSTEM CONTROLLER, SYSTEM CONTROLLER-Ansley Hackett Attending Provider Girish Lemos MD Primary Care Provider Girish Lemos MD Primary Care Provider Girish Lemos MD Primary Care Provider Dr. Fabricio Lemos Primary Care Provider Dr. Fabricio Lemos Referring Provider Patricia SYSTEM CONTROLLER, SYSTEM CONTROLLER-Ansley Hackett Attending Provider Dr. Fabricio Lemos Primary Care Provider Dr. Fabricio Lemos Referring Provider Patricia DICKEY SYSTEM CONTROLLER-Ansley Hackett Attending Provider Dr. Fabricio Lemos Primary Care Provider Dr. Fabricio Lemos Referring Provider [phone] Dr. Tobias Gonsalves Attending Provider [phone] Tobias Gonsalves Referring Provider [phone] Tobias Gonsalves Other Provider Dr. Sarmad Noe Attending Provider Girish Lemos MD Primary Care Provider RICHARD GARCIA MD Attending Unavailabl e DUMANDAN, RICHARD ERNANDEZ Primary Care Unavailabl e GIRISH LEMOS Consulting Unavailab le JERRIANDAJoo, RICHARD ERNANDEZ Admitting Unavailabl e PROVIDER, UNKNOWN Consulting Unavailable JERRIANDAJoo, RICHARD ERNANDEZ Attending Unavailabl e DUMANDAN, RICHARD ERNANDEZ Primary Care Unavailabl e GIRISH LEMOS Consulting Unavailab le JERRIANDAJoo, RICHARD ERNANDEZ Admitting Unavailabl e PROVIDER, UNKNOWN Consulting Unavailable JERRIANDAJoo, RICHARD ERNANDEZ Primary Care Unavailabl e DUMANDAN, RICHARD ERNANDEZ Admitting Unavailabl e OLIVEIRA, AURE A Consulting Unavailable JERRIANDAJoo, RICHARD ERNANDEZ Attending Unavailabl e PROVIDER, UNKNOWN Consulting Unavailable PROVIDER, UNKNOWN Consulting Unavailable PROVIDER, UNKNOWN Consulting Unavailable Podlogar POSITION CLASSIFICATION SPECIALIST.DIA, Jeanette Unavailable Roxann Gomez Unavailable Silas Robbins MD Unavailable Dr. Fabricio Lemos MD Primary Care Provider Dr. Fabricio Lemos MD Referring Provider [phone] Patricia SYSTEM CONTROLLER-CRoxann Attending Provider Patricia SYSTEM CONTROLLER-CRoxann Referring Provider Austin Mack MD Emergency Provider Dr. Mae Horton DO Admit Provider Dr. Mae Horton DO Attending Provider Dr. Mae Horton DO Other Provider Dr. Alex Mercado MD Emergency Provider Dr. Alex Mercado MD Attending Provider Dr. Sherice Fernandez MD Attending Provider Audie SYSTEM CONTROLLER-C, Sharda Attending Provider Dr. Sehrice Fernandez MD Referring Provider Macario ERNANDEZ Dr. Jalloh Attending Provider Macario ERNANDEZ, Dr. Jalloh Referring Provider Macario ERNANDEZ, Dr. Jalloh Other Provider Knoble POSITION CLASSIFICATION SPECIALIST.PRIMING POWDER PREMIX BLENDER, Oleg Unavailable Knoble POSITION CLASSIFICATION SPECIALIST.PRIMING POWDER PREMIX BLENDER, Oleg Unavailable Kristen Mattson PA-C Attending Provider Raulito ERNANDEZ, Dr. [...] Primary Care Unavailab le PODLOGARJEANETTE Referring Unavailable GIRISH LEMOS Primary Care Unavailab le BURSLEY, CHRISTOPHER [...] Aminta ERNANDEZ, Dr. Regalado Referring Provider Patricia SYSTEM CONTROLLER-C, Roxann Attending Provider Patricia SYSTEM CONTROLLER-C, Roxann Referring Provider Frederick ERNANDEZ, Austin Emergency Provider Clifford EM, Dr. Wall Admit Provider Dr. Mae Horton DO Attending Provider Dr. Mae Horton DO Other Provider Rogelio ERNANDEZ, Dr. Johnson Attending Provider Dr. Alex Mercado MD Emergency Provider Dr. Sherice Fernandez MD Attending Provider Audie SYSTEM CONTROLLER-C, Sharda Attending Provider Dr. Sherice Fernandez MD Referring Provider Dr. Yeimi Sorto MD Attending Provider Dr. Yeimi Sorto MD Referring Provider Dr. Yeimi Sorto MD Other Provider Twila BENNETT-Ansley, Kristen Attending Provider Raulito ERNANDEZ, Dr. De La Rosa Admit Provider Raulito ERNANDEZ, Dr. De La Rosa Referring Provider Dr. Estrella Cabezas MD Other Provider Michi ERNANDEZ, Dr. Keene Attending Provider Dr. Man Polo MD Attending Provider Vickey ERNANDEZ, Dr. Hancock Attending Provider Michi ERNANDEZ, Dr. Keene Other Provider Shun ERNANDEZ, Dr. Bernardo Attending Provider [phone] Shun ERNANDEZ, Dr. Bernardo Referring Provider [phone] Aminta ERNANDEZ, Dr. Regalado Primary Care Provider Patricia SYSTEM CONTROLLER-C, Roxann Referring Provider Aminta ERNANDEZ, Dr. Regalado Referring Provider [phone] Twila DOBBINS, Kristen Attending Provider Frederick ERNANDEZ, Austin Emergency Provider Shun ERNANDEZ, Dr. Bernardo Attending Provider Shun ERNANDEZ, Dr. Bernardo Referring Provider Mae Horton Attending Unavailable Mae Horton Admitting Unavailable Bursley, Fabricio Primary Care Unavailable Az Hoffmann Referring Unavailable Az Hoffmann Attending Unavailable Bursley, Fabricio Primary Care Unavailable Gomez SYSTEM CONTROLLER, Roxann Referring Unavailable Gomez SYSTEM CONTROLLER, Roxann Attending Unavailable Bursley, Fabricio Primary Care Unavailable Mae Horton Attending Unavailable Mae Horton Admitting Unavailable Mae Horton Consulting Unavailable Bursley, Fabricio Primary Care Unavailable Estrella Cabezas Consulting Unavailable Jassi Borden Attending Unavailable Bursley, Fabricio Primary Care Unavailable Estrella Cabezas Referring Unavailable Estrella Cabezas Admitting Unavailable Jassi Borden Consulting Unavailable Audie SYSTEM CONTROLLER, Sharda Attending Unavailable Bursley, Fabricio Primary Care Unavailable Bursley, Fabricio Referring Unavailable Gomez SYSTEM CONTROLLER, Roxann Attending Unavailable Gomez SYSTEM CONTROLLER, Roxann Referring Unavailable Bursley, Fabricio Primary Care Unavailable Bursley, Fabricio Primary Care Unavailable Robotham, Yeimi Consulting Unavailable Robotham, Yeimi Attending Unavailable Robotham, Yeimi Referring Unavailable Isckarus, Mansour Attending Unavailable Isckarus, Mansour Referring Unavailable Bursley, Fabricio Primary Care Unavailable Gomez SYSTEM CONTROLLER, Roxann Attending Unavailable Gomez SYSTEM CONTROLLER, Roxann Referring Unavailable Bursley, Fabricio Primary Care Unavailable Estrella Cabezas Attending Unavailable Man Polo Attending Unavailable Bursley, Fabricio Primary Care Unavailable Cabezas, Estrella Referring Unavailable Bursley, Fabricio Primary Care Unavailable Santi Hurd Attending Unavailable Matthew Garza Attending Unavailabl e Bursley, Fabricio Primary Care Unavailable Bursley, Fabricio Referring Unavailable Isckarus, Mansour Attending Unavailable Bursley, Fabricio Primary Care Unavailable Audie SYSTEM CONTROLLER, Sharda Attending Unavailable Bursley, Fabricio Primary Care Unavailable Bursley, Fabricio Referring Unavailable Bursley, Fabricio Primary Care Unavailable Robotham, Yeimi Attending Unavailable Robotham, Yeimi Referring Unavailable Isckarus, Mansour Attending Unavailable Isckarus, Mansour Referring Unavailable Bursley, Fabricio Primary Care Unavailable Bursley, Fabricio Referring Unavailable Isckarus, Mansour Attending Unavailable Bursley, Fabricio Primary Care Unavailable Gomez SYSTEM CONTROLLER, Roxann Referring Unavailable Gomez SYSTEM CONTROLLER, Roxann Attending Unavailable Bursley, Fabricio Primary Care [...] Primary Care Unavailable Isckarus, Mansour Attending Unavailable Audie SYSTEM CONTROLLER, Sharda Attending Unavailable Bursley, Fabricio Referring Unavailable Bursley, Fabricio Primary Care Unavailable Bursley, Fabricio Referring Unavailable Bursley, Fabricio Primary Care Unavailable Kristen Charles Attending Unavailable Bursley, Fabricio Referring Unavailable Isckarus, Mansour Attending Unavailable Bursley, Fabricio Primary Care Unavailable Audie SYSTEM CONTROLLER, Sharda Attending Unavailable Bursley, Fabricio Primary Care Unavailable Bursley, Fabricio Referring Unavailable Gomez SYSTEM CONTROLLER, Roxann Referring Unavailable Isckarus, Mansour Attending Unavailable Bursley, Fabricio Primary Care Unavailable Gomez SYSTEM CONTROLLER, Roxann Attending Unavailable Bursley, Fabricio Referring Unavailable Bursley, Fabricio Primary Care Unavailable Gomez SYSTEM CONTROLLER, Roxann Attending Unavailable Bursley, Fabricio Referring Unavailable Fabricio Lemos Primary Care Unavailable Lorin LIU.PRIMING POWDER PREMIX BLENDER, Oleg Unavailable Aminta ERNANDEZ, Dr. Regalado Primary Care Provider Dr. Fabricio Lemos MD Referring Provider Audie SYSTEM CONTROLLER-C, Sharda Attending Provider Dr. Sehrice Fernandez MD Attending Provider Dr. Sherice Fernandez MD Referring Provider Dr. Juan Lynch DO Emergency Provider [phone] Allergies Allergy Classification Reported Allergen(s) Allergy Type Date of Onset Reaction(s) Facility (20 sources) Angiotensin Converting Enzyme (David) Inhibitors; Translations: [DAVID INHIBITORS] Allergy to substance 8 Rash [facility] Work Phone: (20 sources) Codeine; Translations: [CODEINE] Drug Allergy 8 Vomiting, Other: See Comments [facility] Work Phone: (16 sources) predniSONE Drug Allergy 2 Other [facility] Comment on above: patient does not rec all the reaction, just states she can't take prednisone. (20 sources) walnut allergenic extract; Translations: [WALNUT] Drug Allergy 8 Unknown [facility] (17 sources) Xphsnkl-Pim-Fnh Reductase Inhibitor; Translations: [Lfyhipr-Tzk-Yf a Reductase Inhibitor] Propensity to adverse reactions 2 [facility] (20 sources) ezetimibe; Translations: [EZETIMIBE] Drug Allergy 1 Myalgia [facility] Work Phone: (2 sources) HMG-CoA reductase inhibitor; Translations: [CAFRGNO-HJF-OO A REDUCTASE INHIBITORS] Drug Intolerance 8 Myalgia [facility] Work Phone: (20 sources) Mirtazapine; Translations: [MIRTAZAPINE] Drug Allergy 1 Other: See Comments [facility] Work Phone: (20 sources) HMG-CoA reductase inhibitor Drug Intolerance 8 Myalgia [facility] Work Phone: (1 source) Codeine Drug Allergy [facility] Repository (1 source) Codeine Drug Allergy 5 [facility] Repository (1 source) predniSONE Drug Allergy 5 [facility] Repository (1 source) walnut Drug allergy (disorder) 5 [facility] Repository Medications Current Medications Medication Drug Class(es) Dates Sig (Normalized) Sig (Original) [id number] 200 actuat albuterol 0.09 mg/actuat metered dose [...] 30 capsule 01/26/2025 02/05/2025 Active Disability Placard (13 sources) Start: 09-15-20 Disability Placard Active 0 [...] 09/09/2025 docusate sodium 100 mg oral capsule (20 sources) Start: 11-14-2024 End: 12-11-2024 take 1 [...] DAILY as needed for leg swelling/SOB 30 0 January 10, 2025 2:32pm Start: 08-17-2020 End: 05-17-2021 take 1 tablet by mouth twice daily Furosemide 20 MG tablet Discontinued 20 mg PO TWICE A DAY 20 0 August 17, 2020 1:00am May 17, 2021 [...] take 1 tablet by mouth once daily Levothyroxine 25 MCG tablet Active 25 ug PO DAILY November 03, 2017 1:00am thyroid Comment on above: Take 1 tablet by [facility] th once daily. lidocaine 25 mg/ml / prilocaine 25 mg/ml topical cream (8 sources) Antiarrhythmic, Amide Local Anesthetic Start: 12-15-2024 [...] topical solution (20 sources) Arteriolar Vasodilator Start: Minoxidil 2 % external solution Indications: Thinning hair Apply 1 mL to affected area twice daily. 120 mL 1 11/17/2020 Active Comment on above: Apply 1 mL to affect ed area twice daily. mirtazapine 15 mg oral tablet (8 sources) Start: take 1 tablet by mouth at bedtime Mirtazapine 15 mg tablet Active 15 mg PO AT BEDTIME 30 December 29, 2024 12:00am Disturbance in sleep behavior Sleep disorder, unspecified sleep Start: 12-29-2024 mv,jaci,iron,mn/folic acid/ch ol (WMJW-ZSTC-QQPFZ, PABA, ORAL) (20 sources) take 1 tablet by mouth once daily mv,jaci,iron,mn/folic acid/chol (DEJL-GNHG-QJZLF, PABA, ORAL) Take 1 tablet by mouth once daily. Active take 1 tablet by mouth once nica y mv,jaci,iron,mn/folic acid/chol (AOUG-UGLF-PDVPR, PABA, ORAL) Take 1 tablet by mouth once daily. 0 Active Comment on above: Take 1 tablet by [facility] th once daily. omeprazole 40 mg delayed release oral capsule (20 sources) Proton Pump Inhibitor Start: 12-11-2024 take 1 capsule by mouth twice daily Omeprazole 40 MG capsule,delayed release(DR/EC) Active 40 mg PO TWICE A DAY December 11, 2024 12:00am gerd Start: 07-16-2020 End: 12-11-2024 take 1 capsule by mouth once daily Omeprazole 40 MG capsule,delayed release(DR/EC) Discontinued 40 mg PO DAILY 0 0 August 17, 2020 1:10pm December 11, 2024 8:31am gerd Start: 07-02-2019 End: 08-17-2020 take 1 capsule by mouth twice daily Omeprazole 40 MG capsule,delayed release(DR/EC) Discontinued 40 mg PO TWICE A DAY July 16, 2020 12:00am August 17, 2020 1:10pm gerd Comment on above: Take 1 capsule by [facility] twice daily. oxyCODONE hydrochloride 10 mg oral [...] elsewhere classified take 1 tablet by [facility] th every six hours as needed oxyCODONE IR (ROXICODONE) 10 mg tab Take 10 mg by mouth four times a day as needed for pain. 0 Active Pnv No.419-Qu-Kc9-Dha-Epa-Fi sh ( Gummies) 400 mcg-35 mg- 25 mg-5 mg tablet,chewable (13 sources) Start: 01-05-2022 take 2 tablets by mouth once daily Pnv No.468-Ag-Yw3-Qow-Qib-Gfvu ( Gummies) 400 mcg-35 mg- 25 mg-5 mg tablet,chewable Active 2 TABLET PO DAILY January 05, 2022 1:15pm Start: 01-05-2022 End: 09-04-2022 Pnv No.743-Nf-Ym9-Dha-Epa-Fi sh ( Gummies) 400 mcg-35 mg- 25 mg-5 mg tablet,chewable Discontinued 2 {tbl} PO DAILY January 05, 2022 12:00am September 04, 2022 1:49pm Start: 01-05-2022 End: 09-04-2022 take 2 tablets by mouth once daily Pnv No.708-Wt-Qi1-Mji-Ljx-Rioj ( Gummies) 400 mcg-35 mg- 25 mg-5 mg tablet,chewable Discontinued 2 TABLET PO DAILY January 05, 2022 12:00am September 04, 2022 1:49pm Start: 01-05-2022 End: 09-04-2022 take 2 tablets by mouth once daily Pnv No.207-Ub-Sa7-Owi-Maf-Tzcm ( Gummies) 400 mcg-35 mg- 25 mg-5 [...] 2022 1:19pm prochlorperazine 10 mg oral tablet (8 sources) Phenothiazine Start: 12-15-2024 take 1 tablet by mouth every six hours as needed for nausea and vomiting Prochlorperazine Maleate 10 mg tablet Active 10 mg PO EVERY 6 HOURS as needed for nausea and vomiting December 15, 2024 12:00am Chemotherapy-induced nausea and vomiting Nausea with vomiting, unspecified Adverse effect of antineoplastic and immunosuppressive drugs, initial encounter Dmicliv-Lcwh-Rnztz-Or eg-Capryl (4 sources) Start: 01-05-2022 take 2 capsules by mouth once daily Jorjjel-Thht-Qfblt-Oreg- Capryl Active 2 CAP PO DAILY January 05, 2022 1:15pm Start: 01-05-2022 End: 05-09-2022 take 2 capsules by mouth once daily Glgpgnz-Ywtv-Hqpvd-Oreg-Capryl Discontin ued 2 CAP PO DAILY January 05, 2022 12:00am May 09, 2022 10:07am Start: 01-05-2022 End: 05-09-2022 take 2 capsules by mouth once daily Fenzlqo-Ftpw-Wsbqv-Oreg-Capryl Discontin ued 2 CAP PO DAILY January 04, 2022 11:00pm May 09, 2022 9:07am Vitamin B Complex (B Complex-Vitamin B12) tablet (13 sources) Start: 01-05-2022 take 1 tablet by [...] A DAY as needed for Pain Score -November 03, 2017 1:00am August 17, 2020 1:05pm [...] / oxyCODONE hydrochloride 5 mg oral tablet (16 sources) Opioid Agonist Start: 09-15-2020 End: 05-28-2024 [...] / ipratropium bromide 0.167 mg/ml inhalation solution (15 sources) Anticholinergic, beta2-Adrenergic Agonist Start: 05-09-2022 End: [...] 2022 12:00am allopurinol 300 mg oral tablet (10 sources) Xanthine Oxidase Inhibitor Start: 11-24-2024 End: 12-11-2024 take 1 tablet by mouth once daily Allopurinol 300 mg tablet Discontinued 300 mg PO daily 7 0 November 24, 2024 12:00am December 11, 2024 8:20am amoxicillin 875 mg / clavulanate 125 mg oral tablet (16 sources) Penicillin-class Antibacterial Start: 11-17-2021 End: 05-09-2022 [...] 11:18am COVID-19 azithromycin 250 mg oral tablet (11 sources) Macrolide Antimicrobial Start: 09-02-2024 End: 11-03-2024 take 2-5 tablets by mouth once daily Azithromycin 250 mg tablet Discontinued 0 PO .COMPLEX 6 0 September 02, 2024 1:00am November 03, 2024 12:18pm take 500 mg today (day 1), then 250 mg for 4 days (days 2-5) PO bempedoic acid 180 mg oral tablet (20 sources) Start: 05-15-2023 End: 11-03-2024 take 1 tablet by mouth once daily Bempedoic Acid (Nexletol) 180 mg tablet Discontinued 180 mg PO DAILY June 13, 2023 12:00am November 03, 2024 12:19pm Comment on above: once daily. Calcium (8 sources) Phosphate Binder, Calcium Start: 05-28-2024 End: [...] Start: 05-28-2024 take 1 capsule [facility] once daily Calcium 600 mg capsule [...] by trina once daily. cholecalciferol 0.025 mg oral capsule [...] twice daily. dexamethasone 1 mg oral tablet (18 sources) Corticosteroid Start: 12-29-2024 End: 12-29-2024 take [...] 10:48am doxycycline hyclate 100 mg oral tablet (16 sources) Tetracycline-class Drug Start: 11-17-2021 End: 05-09-2022 [...] completed) Start: 05-17-2021 take 1 capsule by [facility] once daily, then take 1 capsule [...] Comment on above: Take 1 capsule by [facility] once daily. For Investigational Drug Use Only. PI: Krystin Rodrigues, PhD. Take one capsule by mouth daily for 3 months prior to surgery and 3 months after surgery. levoFLOXacin 750 mg oral tablet (15 sources) Quinolone Antimicrobial Start: 09-04-20 End: 09-11-20 [...] on above: Take 2 capsules by m outh once daily. nystatin [id number] unt/ml oral suspension (10 sources) Polyene Antifungal Start: 11-24-2024 End: 12-11-2024 [...] Start: 10-17-2024 take 1 tablet by [facility] every six hours as needed for nausea [...] oral tablet (20 sources) Start: 2 End: 4 take 1 tablet by mouth once daily [...] on above: Take 2 tablets by [facility] once daily. sertraline 50 mg oral tablet (9 sources) Serotonin Reuptake Inhibitor Start: 1 End: 2 take 1 tablet by mouth once daily sertraline (ZOLOFT) 50 mg tablet Indications: Anxiety with depression Take 1 tablet by mouth once daily. 30 tablet 2 04/20/2021 08/22/2022 Discontinued (Other) Comment on above: Take 1 tablet by trina once daily. traZODone hydrochloride 50 mg oral tablet (8 sources) Serotonin Reuptake Inhibitor Start: 5 End: 5 take 1 tablet by mouth at bedtime Trazodone 50 mg tablet Discontinued 50 mg PO AT BEDTIME December 29, 2024 12:00am December 29, 2024 2:50pm Start: 12-29-2024 End: 12-29-2024 Uxkpujko-Ehjv-Clmgh-Oreg-Cap ry (1 source) Start: 01-05-2022 End: 05-09-2022 take 2 capsules by mouth once daily Ifworrfm-Eaap-Ccump-Oreg-Capry Discontinued 2 CAP PO DAILY January 05, 2022 12:00am May 09, 2022 10:07am Grdbcdop-Arai-Xlwda-Oreg-Cap ry 100 mg-150 mg- 50 mg-150 mg capsule (8 sources) Start: 01-05-2022 End: 05-09-2022 take 1 capsule by mouth once daily Hfocejqs-Sfqt-Phjrj-Oreg-Capry 100 mg-150 mg- 50 mg-150 mg capsule [...] anxiety disorders] Onset: 1 04-20-2021 Chronic Asthma (10 sources) Asthma; Translations: [Unspecified asthma, uncomplicated] 11-24-2024 [...] lobes. Chronic obstructive pulmonary disease and bronchiectasis (16 sources) Bronchitis; Translations: [Bronchitis, not specified as acute or chronic] 11-20-2021 Episodic Conduction disorders (4 sources) First degree atrioventricular block; Translations: [Atrioventricular block, first degree] Onset: Chronic Deficiency and other anemia (2 sources) Anemia; Translations: [Anemia, unspecified] 04-06-2025 Episodic Disorders of lipid metabolism (20 sources) Hyperlipidemia; [...] Translations: [Gross hematuria] Episodic Heart valve disorders (10 sources) Heart murmur; Translations: [Cardiac murmur, unspecified] 11-24-2024 Episodic Hemorrhoids (20 sources) Internal hemorrhoids; Translations: [Other hemorrhoids] 12-16-2024 Episodic Immunity disorders (2 sources) Patient immunocompromised; Translations: [Immunodeficiency, unspecified] Onset: 5 01-26-2025 Chronic Inflammatory diseases of female pelvic organs (1 source) Acute vaginitis; Translations: [Acute vaginitis] Episodic Influenza (20 sources) Influenza; Translations: [Influenza due to unidentified influenza virus with other respiratory manifestations] Episodic Maintenance chemotherapy; radiotherapy (16 sources) Patient encounter status; Translations: [Encounter for antineoplastic chemotherapy] 12-16-2024 Chronic Malignant neoplasm without specification of site (20 sources) Carcinoma of lung; 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] Onset: 5 11-25-2024 Chronic Menopausal disorders (1 source) Postmenopausal bleeding; Translations: [Postmenopausal bleeding] Chronic Mycoses (2 sources) Dermatophytosis; Translations: [Tinea corporis] Episodic Nausea and vomiting (17 sources) Nausea; Translations: [Nausea] Onset: 5 11-15-2021 Episodic Nonspecific chest pain (20 sources) Chest pain; Translations: [Chest pain, unspecified] Onset: 5 01-09-2025 Episodic Osteoarthritis (10 sources) Arthritis; Translations: [Unspecified osteoarthritis, unspecified site] 11-24-2024 Chronic Other circulatory disease (16 sources) Device in situ; Translations: [Presence of other vascular implants and grafts] 12-22-2024 Chronic Other connective tissue disease (1 source) Pain of toe of left foot; Translations: [Pain in left toe(s)] Episodic Other connective tissue disease (1 source) Cramp; Translations: [Cramp and spasm] 01-08-2024 Episodic Other connective tissue disease (2 sources) Monoparesis - leg; Translations: [Other symptoms and signs involving the musculoskeletal system] 04-06-2025 Episodic Other ear and sense organ disorders (10 sources) Hearing loss; Translations: [Unspecified hearing loss, unspecified ear] 11-24-2024 Chronic Other female genital disorders (1 source) Pain in female genitalia on intercourse; Translations: [Unspecified dyspareunia] Chronic Other female genital disorders (1 source) Vulval irritation; Translations: [Other specified noninflammatory disorders of vulva and perineum] Episodic Other gastrointestinal disorders (15 sources) Acute diarrhea; Translations: [Diarrhea, unspecified] 09-21-2022 Episodic Other gastrointestinal disorders (5 sources) Diarrhea; Translations: [Diarrhea, unspecified] 11-15-2021 Episodic Other liver diseases (5 sources) Liver mass; Translations: [Hepatomegaly, not elsewhere classified] 10-17-2024 Episodic Other liver diseases (11 sources) Enzyme level - finding; Translations: [Elevated transaminase measurement] 11-23-2024 Episodic Other liver diseases (20 sources) High lipase level in serum; Translations: [Abnormal levels of other serum enzymes] 11-12-2024 Episodic Other liver diseases (20 sources) Jaundice; Translations: [Unspecified jaundice] 11-24-2024 Episodic Other liver diseases (1 source) Unspecified jaundice; Translations: [Unspecified jaundice] Onset: Episodic Other lower respiratory disease (13 sources) Fibrosis of lung; Translations: [Pulmonary fibrosis, unspecified] 03-13-2023 Chronic Other lower respiratory disease (1 source) Pulmonary fibrosis, unspecified; Translations: [Postinflammatory pulmonary fibrosis] 03-13-2023 Chronic Other lower respiratory disease (16 sources) Respiratory insufficiency; Translations: [Other abnormalities of breathing] 11-12-2021 Episodic Other lower respiratory disease (20 sources) Hypoxia; Translations: [Hypoxemia] 09-15-2020 Episodic Other lower respiratory disease (1 source) Other abnormalities of breathing; Translations: [Other respiratory abnormalities] Episodic Other lower respiratory disease (15 sources) Acute lower respiratory tract infection; Translations: [Unspecified acute lower respiratory infection] 09-21-2022 Episodic Other lower respiratory disease (1 source) Cough; Translations: [Cough] 11-15-2021 Episodic Other lower respiratory disease (1 source) Lung mass; Translations: [Other nonspecific abnormal finding of lung field] 11-12-2024 Episodic Other lower respiratory disease (19 sources) Dyspnea; Translations: [Shortness of breath] 03-13-2024 [...] loss; Translations: [Weight loss] Onset: Episodic Other screening for suspected conditions (not mental disorders or infectious disease) (20 sources) Patient encounter status; Translations: [Encounter for screening mammogram for malignant neoplasm of breast] Onset: 01-31-202 5 Episodic Other skin disorders (1 source) [...] caused by tuberculosis or sexually transmitted disease) (17 sources) Pneumonia; Translations: [Pneumonia, unspecified organism] 11-25-2021 Episodic Pulmonary heart disease (20 sources) Pulmonary hypertension; Translations: [Pulmonary hypertension, unspecified] Onset: 3 05-09-2022 Chronic Comment on above: Echocardiogram from February 07, 2021 estimated PASP of 30 mmHg and stage I diastolic dysfunction Residual codes; unclassified (20 sources) Obstructive sleep apnea syndrome; Translations: [Obstructive [...] [Localized edema] 12-02-2024 Episodic Residual codes; unclassified (8 sources) Disturbance in sleep behavior; Translations: [Sleep disorder, unspecified] 12-29-2024 Episodic Residual codes; unclassified (1 source) Sleep disorder, unspecified; Translations: [Sleep disorder, unspecified] Onset: Episodic Respiratory failure; insufficiency; arrest (adult) (10 sources) Chronic hypoxemic respiratory failure; Translations: [Chronic respiratory failure with hypoxia] 11-24-2024 Chronic Secondary malignancies (20 sources) Secondary malignant neoplasm of liver; 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] 11-12-2024 Chronic Secondary malignancies (11 sources) Secondary malignant neoplastic disease; Translations: [Secondary [...] bone; Translations: [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)] Onset: 5 Chronic Secondary malignancies (3 sources) Secondary malignant [...] back pain ; Translations: [Dorsalgia, unspecified] Onset: 5 05-16-2018 Episodic Substance-related disorders (20 sources) Cigarette smoker ; Translations: [Nicotine dependence, cigarettes, uncomplicated] Chronic Comment on above: smoker 1 ppd for 45 yearsquit 2015, due in January 2025 and previously ordered Thyroid disorders (20 sources) Hypothyroidism; Translations: [Hypothyroidism, unspecified] Onset: 8 11-14-2017 Chronic Thyroid disorders (10 sources) Disorder of thyroid gland; Translations: [Disorder of thyroid, unspecified] 11-24-2024 Episodic Comment on above: ON MED Unclassified (15 sources) High grade neuroendocrine carcinoma of lung; Translations: [C7A.1 - Malignant poorly differentiated neuroendocrine tumors] Unclassified (8 sources) Malignant neoplasm metastatic to bone Unclassified (5 sources) 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 Unclassified (5 sources) C34.12 - Malignant neoplasm of upper lobe, left bronchus or lung,C79.51 - Secondary malignant neoplasm of bone,C77.9 - Secondary and unspecified malignant neoplasm of lymph node, unspecified,C78.7 - Secondary malignant neoplasm of liver and intrahepatic bile duct Unclassified (7 sources) C7A.1 - Malignant poorly differentiated neuroendocrine tumors,C79.51 - Secondary malignant neoplasm of bone,C77.9 - Secondary and unspecified malignant neoplasm of lymph node, unspecified Unclassified (5 sources) C34.12 - Malignant neoplasm of upper lobe, left bronchus or lung,C79.51 - Secondary malignant neoplasm of bone,C7A.1 - Malignant poorly differentiated neuroendocrine tumors,C77.9 - Secondary and unspecified malignant neoplasm of lymph node, unspecified,C78.7 - Secondary malignant neoplasm of liver and intrahepatic bile duct Viral infection (17 sources) Disease caused by V; Translations: [COVID-19] 09-15-2020 Episodic Past or Other Problems Problem Classification Problem Date Documented Da te Episodic/Chronic Diabetes mellitus without complication (5 sources) Prediabetes; Translations: [Prediabetes] Onset: 07-15-2024 Episodic Immunizations and screening for infectious disease (5 sources) Suspected disease caused by V; Translations: [Suspected COVID-19 virus infection] Onset: 07-15-2024 [...] [Shortness of breath] Onset: 04-17-2024 Episodic Other upper respiratory disease (2 sources) [...] Range Facility Absolute lymphocyte countOrd ered [facility] Lymphocytes Auto (Unsp spec) [#/Vol] 0.44 10*3/uL Low 0.83-4.51 [facility] Absolute neutrophil countOrd ered By[facility] on 04-06-2025 Neutrophils (Bld) [#/Vol] 2.4 10*3/uL 2.0-7.7 [facility] Anion gap in Serum or Plasma Ordered By: Sherice Fernandez on 04-06-2025 Anion gap [Moles/Vol] 12 mmol/L 5-15 [facility] Automated lymphocyte count a s percentage of total leukocytesOrdered By: [facility] on 04-06-2025 Lymphocytes/100 WBC Auto (Unsp spec) 11.3 % Low 19-41 [facility] BUN/creatinine ratioOrdered By: [facility] Jim on 04-06-2025 Urea nitrogen/Creatinine [Mass ratio] 5.6 mg/mg Low 10-20 [facility] Basophil percentageOrdered B y: Sherice Fernandez on 04-06-2025 Basophils/100 WBC (Bld) 0.8 % 0-1 [facility] Bilirubin, totalOrdered By: [facility] on 04-06-2025 Bilirubin [Mass/Vol] 0.26 mg/dL 0.00-1.30 [facility] Carbon dioxide, total [Moles /volume] in Central venous bloodOrdered By: Sherice Fernandez on 04-06-2025 CO2 [Moles/Vol] 24.3 mmol/L 21.0-32.0 [facility] Chloride assayOrdered By: Melva Fernadnez on 04-06-2025 Chloride [Moles/Vol] 107 mmol/L 98-108 [facility] Eosinophil percentageOrdered By: Sherice Fernandez on 04-06-2025 Eosinophils/100 WBC (Bld) 0.5 % 0-5 [facility] Erythrocyte distribution wid th ratioOrdered By: Carmellaadrian Fernandez on 04-06-2025 Erythrocyte distribution width (RBC) [Ratio] 17.2 % High 11.6-14.6 [facility] Erythrocyte distribution wid th standard deviationOrdered By: [facility] on 04-06-2025 Erythrocyte distribution width (RBC) [Ratio] 63.7 fl High 35.1-43.9 [facility] Glomerular filtration rate ( GFR) estimation/1.73 sq m using serum, plasma, or whole bOrdered By: Sherice Fernandez on 04-06-2025 GFR/1.73 sq M.predicted among non-blacks MDRD (S/P/Bld) [Vol rate/Area] 71 mL/min/{1.73_m2} >60 [facility] Comment on above: mL/min/1.73m2 CKD-EP I Creatinine Equation (2020) Hematocrit Auto (Bld) [Volum e fraction]Ordered By: Sherice Fernandez on 04-06-2025 Hematocrit (Bld) [Volume fraction] 25.5 % Low 37-47 [facility] Hemoglobin measurementOrdere d By: Sherice Fernandez on 04-06-2025 Hemoglobin (Bld) [Mass/Vol] 8.3 g/dL Low 12.0-15.0 [facility] Immature granulocytes/100 WB C Auto (Bld)Ordered By: Sherice Fernandez on 04-06-2025 Immature granulocytes/100 WBC (Bld) 0.800 % 0.0-0.9 [facility] Comment on above: IG% - Immature Granu locytes (promyelocytes, myelocytes and metamyelocytes) > 1% indicates that a LEFT SHIFT is Present. Laboratory - Chemistry and C hemistry - challengeOrdered By: Sherice Fernandez on 04-06-2025 AST [Catalytic activity/Vol] 100 U/L High <32 [facility] MCV (mean corpuscular volume ) determinationOrdered By: Sherice Fernandez on 04-06-2025 MCV (RBC) [Entitic vol] 102.4 fL High 81-99 [facility] Magnesium measurement (mass/ volume)Ordered By: Sherice Fernandez on 04-06-2025 Magnesium (Unsp spec) [Mass/Vol] 1.3 mg/dL Low 1.5-2.2 [facility] Mean corpuscular hemoglobin (MCH) determinationOrdered By: Sherice Fernandez on 04-06-2025 MCH (RBC) [Entitic mass] 33.3 pg High 27.0-32.0 [facility] Mean corpuscular hemoglobin concentration (MCHC) determinationOrdered By: Sherice Fernandez on 04-06-2025 MCHC (RBC) [Mass/Vol] 32.5 g/dL 32-36 [facility] Mean platelet volume determi nationOrdered By: Sherice Fernandez on 04-06-2025 Platelet mean volume (Bld) [Entitic vol] 10.3 fL 6.2-12.0 [facility] Monocyte percentageOrdered B y: Sherice Fernandez on 04-06-2025 Monocytes/100 WBC (Bld) 24.2 % High 0-10 [facility] Neutrophil percentageOrdered By: Sherice Fernandez on 04-06-2025 Neutrophils/100 WBC (Bld) 62.4 % 47-70 [facility] Nucleated red blood cell per centageOrdered By: Sherice Fernandez on 04-06-2025 Nucleated RBC/100 WBC (Bld) [Ratio] 0 % 0-5 [facility] Platelet countOrdered By: Melva Fernandez on 04-06-2025 Platelets (Bld) [#/Vol] 132 10*3/uL Low 150-450 [facility] Potassium measurement (mass/ volume)Ordered By: Sherice Fernandez on 04-06-2025 Potassium (Unsp spec) [Mass/Vol] 3.3 mmol/L 3.3-5.1 [facility] RBC Auto (Bld) [#/Vol]Ordere d By: Sherice Fernandez on 04-06-2025 RBC (Bld) [#/Vol] 2.49 10*6/uL Low 4.2-5.4 [facility] Serum creatinine measurement (mass/volume)Ordered By: Sherice Fernandez on 04-06-2025 Creatinine [Mass/Vol] 0.88 mg/dL 0.70-1.20 [facility] Serum globulin measurementOr dered By: Sherice Fernandez on 04-06-2025 Globulin (S) [Mass/Vol] 2.7 g/dL 2.2-4.2 [facility] Serum glucose measurement (m ass/volume)Ordered By: Sherice Fernandez on 04-06-2025 Glucose [Mass/Vol] 135 mg/dL High 70-99 [facility] Serum or plasma alanine encarnacion otransferase (ALT) measurementOrdered By: Sherice Fernandez on 04-06-2025 ALT [Catalytic activity/Vol] 24 U/L <35 [facility] Serum or plasma albumin jayro urement (mass/volume)Ordered By: Sherice Fernandez on 04-06-2025 Albumin [Mass/Vol] 3.8 g/dL 3.4-4.8 [facility] Serum or plasma albumin/glob ulin mass ratioOrdered By: Sherice Fernandez on 04-06-2025 Albumin/Globulin [Mass ratio] 1.4 {ratio} 0.9-2.4 [facility] Serum or plasma alkaline lukas sphatase measurementOrdered By: Sherice Fernandez on 04-06-2025 ALP [Catalytic activity/Vol] 163 U/L High 35-104 [facility] Serum or plasma calcium jayro urement (mass/volume)Ordered By: Sherice Fernandez on 04-06-2025 Calcium [Mass/Vol] 9.7 mg/dL 7.6-11.0 [facility] Serum or plasma urea nitroge n measurement (mass/volume)Ordered By: Sherice Fernandez on 04-06-2025 Urea nitrogen [Mass/Vol] 5 mg/dL 4-19 [facility] Sodium levelOrdered By: Carmella Fernandez on 04-06-2025 Sodium [Moles/Vol] 143 mmol/L 133-145 [facility] Total proteinOrdered By: Nain canseco Alyssa on 04-06-2025 Protein [Mass/Vol] 6.5 g/dL 5.9-8.4 [facility] White blood cell (WBC) count Ordered By: Sherice Jim on 04-06-2025 WBC (Bld) [#/Vol] 3.9 10*3/uL Low 4.4-11.0 [facility] Absolute lymphocyte countOrd ered By: Juan Ungnathan on 04-05-2025 Lymphocytes Auto (Unsp spec) [#/Vol] 0.63 10*3/uL Low 0.83-4.51 [facility] Absolute neutrophil countOrd ered By: Remus Ungur on 04-05-2025 Neutrophils (Bld) [#/Vol] 4.0 10*3/uL 2.0-7.7 [facility] Anion gap in Serum or Plasma Ordered By: Juan Ungnathan on 04-05-2025 Anion gap [Moles/Vol] 14 mmol/L 5-15 [facility] Automated lymphocyte count a s percentage of total leukocytesOrdered By: Juan Ungnathan on 04-05-2025 Lymphocytes/100 WBC Auto (Unsp spec) 11.0 % Low 19-41 [facility] BUN/creatinine ratioOrdered By: Juan Ungnathan on 04-05-2025 Urea nitrogen/Creatinine [Mass ratio] 6.2 mg/mg Low 10-20 [facility] Basophil percentageOrdered B y: Juan Ungnathan on 04-05-2025 Basophils/100 WBC (Bld) 0.5 % 0-1 [facility] Carbon dioxide, total [Moles /volume] in Central venous bloodOrdered By: Juan Ungnathan on 04-05-2025 CO2 [Moles/Vol] 23.7 mmol/L 21.0-32.0 [facility] Chloride assayOrdered By: Kimberly Lynch on 04-05-2025 Chloride [Moles/Vol] 103 mmol/L 98-108 [facility] Eosinophil percentageOrdered By: Rem Ungur on 04-05-2025 Eosinophils/100 WBC (Bld) 0.5 % 0-5 [facility] Erythrocyte distribution wid th ratioOrdered By: Juan Lynch on 04-05-2025 Erythrocyte distribution width (RBC) [Ratio] 16.9 % High 11.6-14.6 [facility] Erythrocyte distribution wid th standard deviationOrdered By: Juan Lynch on 04-05-2025 Erythrocyte distribution width (RBC) [Ratio] 59.0 fl High 35.1-43.9 [facility] Glomerular filtration rate ( GFR) estimation/1.73 sq m using serum, plasma, or whole bOrdered By: Juan Lynch on 04-05-2025 GFR/1.73 sq M.predicted among non-blacks MDRD (S/P/Bld) [Vol rate/Area] 68 mL/min/{1.73_m2} >60 [facility] Comment on above: mL/min/1.73m2 CKD-EP I Creatinine Equation (2020) Hematocrit Auto (Bld) [Volum e fraction]Ordered By: Juan Lynch on 04-05-2025 Hematocrit (Bld) [Volume fraction] 25.5 % Low 37-47 [facility] Hemoglobin measurementOrdere d By: [facility] on 04-05-2025 Hemoglobin (Bld) [Mass/Vol] 8.6 g/dL Low 12.0-15.0 [facility] Immature granulocytes/100 WB C Auto (Bld)Ordered By: Juan Lynch on 04-05-2025 Immature granulocytes/100 WBC (Bld) 0.700 % 0.0-0.9 [facility] Comment on above: IG% - Immature Granu locytes (promyelocytes, myelocytes and metamyelocytes) > 1% indicates that a LEFT SHIFT is Present. MCV (mean corpuscular volume ) determinationOrdered By: Juan Lynch on 04-05-2025 MCV (RBC) [Entitic vol] 98.1 fL 81-99 [facility] Mean corpuscular hemoglobin (MCH) determinationOrdered By: Juan Lynch 04-05-2025 MCH (RBC) [Entitic mass] 33.1 pg High 27.0-32.0 [facility] Mean corpuscular hemoglobin concentration (MCHC) determinationOrdered By: Juan Lynch on 04-05-2025 MCHC (RBC) [Mass/Vol] 33.7 g/dL 32-36 [facility] Mean platelet volume determi nationOrdered By: Juan Lynch on 04-05-2025 Platelet mean volume (Bld) [Entitic vol] 11.2 fL 6.2-12.0 [facility] Monocyte percentageOrdered B y: Juan Lynch on 04-05-2025 Monocytes/100 WBC (Bld) 18.4 % High 0-10 [facility] Neutrophil percentageOrdered By: Juan Ungnathan on 04-05-2025 Neutrophils/100 WBC (Bld) 68.9 % 47-70 [facility] Nucleated red blood cell per centageOrdered By: Juan Lynch on 04-05-2025 Nucleated RBC/100 WBC (Bld) [Ratio] 0 % 0-5 [facility] Platelet countOrdered By: Kimberly Lynch on 04-05-2025 Platelets (Bld) [#/Vol] 134 10*3/uL Low 150-450 [facility] Potassium measurement (mass/ volume)Ordered By: Juan Lynch on 04-05-2025 Potassium (Unsp spec) [Mass/Vol] 3.3 mmol/L 3.3-5.1 [facility] RBC Auto (Bld) [#/Vol]Ordere d By: Juan Lynch on 04-05-2025 RBC (Bld) [#/Vol] 2.60 10*6/uL Low 4.2-5.4 [facility] Serum creatinine measurement (mass/volume)Ordered By: Juan Lynch on 04-05-2025 Creatinine [Mass/Vol] 0.91 mg/dL 0.70-1.20 [facility] Serum glucose measurement (m ass/volume)Ordered By: Juan Lynch on 04-05-2025 Glucose [Mass/Vol] 127 mg/dL High 70-99 [facility] Serum or plasma calcium jayro urement (mass/volume)Ordered By: Juan Lynch on 04-05-2025 Calcium [Mass/Vol] 9.8 mg/dL 7.6-11.0 [facility] Serum or plasma urea nitroge n measurement (mass/volume)Ordered By: Juan Lynch on 04-05-2025 Urea nitrogen [Mass/Vol] 6 mg/dL 4-19 [facility] Sodium levelOrdered By: Mark Lynch on 04-05-2025 Sodium [Moles/Vol] 140 mmol/L 133-145 [facility] White blood cell (WBC) count Ordered By: Juan Lynch on 04-05-2025 WBC (Bld) [#/Vol] 5.8 10*3/uL 4.4-11.0 [facility] Absolute lymphocyte countOrd ered By: Sherice Fernandez on 03-16-2025 Lymphocytes Auto (Unsp spec) [#/Vol] 1.00 10*3/uL 0.83-4.51 [facility] Absolute neutrophil countOrd ered By: Sherice Fernandez on 03-16-2025 Neutrophils (Bld) [#/Vol] 3.2 10*3/uL 2.0-7.7 [facility] Anion gap in Serum or Plasma Ordered By: Sherice Fernandez on 03-16-2025 Anion gap [Moles/Vol] 12 mmol/L 5-15 [facility] Automated lymphocyte count a s percentage of total leukocytesOrdered By: Sherice Fernandez on 03-16-2025 Lymphocytes/100 WBC Auto (Unsp spec) 18.6 % Low 19-41 [facility] BUN/creatinine ratioOrdered By: Sherice Fernandez on 03-16-2025 Urea nitrogen/Creatinine [Mass ratio] 8.4 mg/mg Low 10-20 [facility] Basophil percentageOrdered B y: Sherice Fernandez on 03-16-2025 Basophils/100 WBC (Bld) 0.6 % 0-1 [facility] Bilirubin, totalOrdered By: Sherice Fernandez on 03-16-2025 Bilirubin [Mass/Vol] 0.31 mg/dL 0.00-1.30 [facility] CBC W/Diff, Automatedon 02-17 Absolute Lymph 1.00 X10 3/uL Normal 0.83-4.51 [facility] Comment on above: Performed By: #### L 501.2300, [id number], L100.0100, L501.9520, L506.0400, L500.4050 ####[facility] [address] [place], [address] Absolute Neut 3.2 X10 3/uL Normal 2.0-7.7 [facility] Comment on above: Performed By: #### L 501.2300, [id number], L100.0100, L501.9520, L506.0400, L500.4050 ####[facility] [address] [place], [address] Basophils/100 WBC (Bld) 0.6 % Normal 0-1 [facility] Comment on above: Performed By: #### L 501.2300, [id number], L100.0100, L501.9520, L506.0400, L500.4050 ####[facility] [address] [place], [address] Eosinophils/100 WBC (Bld) 0.9 % Normal 0-5 [facility] Comment on above: Performed By: #### L 501.2300, [id number], L100.0100, L501.9520, L506.0400, L500.4050 ####[facility] [address] [place], [address] Erythrocyte distribution width (RBC) [Ratio] 17.6 % High 11.6-14.6 [facility] Comment on above: Performed By: #### L 501.2300, [id number], L100.0100, L501.9520, L506.0400, L500.4050 ####[facility] [address] [place], [address] Hematocrit (Bld) [Volume fraction] 28.4 % Low 37-47 [facility] Comment on above: Performed By: #### L 501.2300, [id number], L100.0100, L501.9520, L506.0400, L500.4050 ####[facility] [address] [place], [address] Hemoglobin (Bld) [Mass/Vol] 9.5 g/dL Low 12.0-15.0 [facility] Comment on above: Performed By: #### L 501.2300, [id number], L100.0100, L501.9520, L506.0400, L500.4050 ####[facility] [address] [place], [address] IG% 0.700 Normal 0.0-0.9 [facility] Comment on above: Result Comment: IG% - Immature Granulocytes (promyelocytes, myelocytes andmetamyelocytes) > 1% indicates that a LEFT SHIFT is Present. Performed By: #### L 501.2300, L501.5200, L100.0100, L501.9520, L506.0400, L500.4050 ####[facility] [address] [place], [address] Lymphocytes/100 WBC (Bld) 18.6 % Low 19-41 [facility] Comment on above: Performed By: #### L 501.2300, [id number], L100.0100, L501.9520, L506.0400, L500.4050 ####[facility] [address] [place], [address] MCH (RBC) [Entitic mass] 33.0 pg High 27.0-32.0 [facility] Comment on above: Performed By: #### L 501.2300, [id number], L100.0100, L501.9520, L506.0400, L500.4050 ####[facility] [address] [place], [address] MCHC (RBC) [Mass/Vol] 33.5 g/dL Normal 32-36 [facility] Comment on above: Performed By: #### L 501.2300, [id number], L100.0100, L501.9520, L506.0400, L500.4050 ####[facility] [address] [place], [address] MCV (RBC) [Entitic vol] 98.6 fL Normal 81-99 [facility] Comment on above: Performed By: #### L 501.2300, [id number], L100.0100, L501.9520, L506.0400, L500.4050 ####[facility] [address] [place], [address] Monocytes/100 WBC (Bld) 19.9 % High 0-10 [facility] Comment on above: Performed By: #### L 501.2300, [id number], L100.0100, L501.9520, L506.0400, L500.4050 ####[facility] [address] [place], [address] Neutrophils/100 WBC (Bld) 59.3 % Normal 47-70 [facility] Comment on above: Performed By: #### L 501.2300, L501.5200, L100.0100, L501.9520, L506.0400, L500.4050 ####[facility] [address] [place], [address] Nucleated RBC (Bld) [#/Vol] 0 10*3/uL Normal 0-5 [facility] Comment on above: Performed By: #### L 501.2300, L501.5200, L100.0100, L501.9520, L506.0400, L500.4050 ####[facility] [address] [place], [address] Platelet mean volume (Bld) [Entitic vol] 10.5 fL Normal 6.2-12.0 [facility] Comment on above: Performed By: #### L 501.2300, L501.5200, L100.0100, L501.9520, L506.0400, L500.4050 ####[facility] [address] [place], [address] Platelets (Bld) [#/Vol] 192 10*3/uL Normal 150-450 [facility] Comment on above: Performed By: #### L 501.2300, L501.5200, L100.0100, L501.9520, L506.0400, L500.4050 ####[facility] [address] [place], [address] RBC (Bld) [#/Vol] 2.88 10*6/uL Low 4.2-5.4 [facility] Comment on above: Performed By: #### L 501.2300, L501.5200, L100.0100, L501.9520, L506.0400, L500.4050 ####[facility] [address] [place], [address] RDW SD 64.3 fl High 35.1-43.9 [facility] Comment on above: Performed By: #### L 501.2300, L501.5200, L100.0100, L501.9520, L506.0400, L500.4050 ####[facility] [address] [place], [address] WBC (Bld) [#/Vol] 5.4 10*3/uL Normal 4.4-11.0 [facility] Comment on above: Performed By: #### L 501.2300, L501.5200, L100.0100, L501.9520, L506.0400, L500.4050 ####[facility] [address] [place], [address] Carbon dioxide, total [Moles /volume] in Central venous bloodOrdered By: Sherice Fernandez on 03-16-2025 CO2 [Moles/Vol] 22.1 mmol/L 21.0-32.0 [facility] Chloride assayOrdered By: Melva baladrian Fernandez on 03-16-2025 Chloride [Moles/Vol] 105 mmol/L 98-108 [facility] Comprehensive Metabolic Prof ilon 03-16-2025 Albumin [Mass/Vol] 3.8 g/dL Normal 3.4-4.8 [facility] Comment on above: Performed By: #### L 501.2300, L501.5200, L100.0100, L501.9520, L506.0400, L500.4050 ####[facility] [address] [place], [address] Albumin/Globulin [Mass ratio] 1.3 {ratio} Normal 0.9-2.4 [facility] Comment on above: Performed By: #### L 501.2300, L501.5200, L100.0100, L501.9520, L506.0400, L500.4050 ####[facility] [address] [place], [address] ALK PHOS 158 U/L High 35-104 [facility] Comment on above: Performed By: #### L 501.2300, L501.5200, L100.0100, L501.9520, L506.0400, L500.4050 ####[facility] [address] [place], [address] ALT [Catalytic activity/Vol] 19 U/L Normal <=34 [facility] Comment on above: Performed By: #### L 501.2300, L501.5200, L100.0100, L501.9520, L506.0400, L500.4050 ####[facility] [address] [place], [address] AST [Catalytic activity/Vol] 73 U/L High <=31 [facility] Comment on above: Performed By: #### L 501.2300, L501.5200, L100.0100, L501.9520, L506.0400, L500.4050 ####[facility] [address] [place], [address] Bilirubin [Mass/Vol] 0.31 mg/dL Normal 0.00-1.30 [facility] Comment on above: Performed By: #### L 501.2300, L501.5200, L100.0100, L501.9520, L506.0400, L500.4050 ####[facility] [address] [place], [address] BUN/CRE 8.4 RATIO Low 10-20 [facility] Comment on above: Performed By: #### L 501.2300, L501.5200, L100.0100, L501.9520, L506.0400, L500.4050 ####[facility] [address] [place], [address] Calcium [Mass/Vol] 9.8 mg/dL Normal 7.6-11.0 [facility] Comment on above: Performed By: #### L 501.2300, L501.5200, L100.0100, L501.9520, L506.0400, L500.4050 ####[facility] [address] [place], [address] Chloride [Moles/Vol] 105 mmol/L Normal 98-108 [facility] Comment on above: Performed By: #### L 501.2300, L501.5200, L100.0100, L501.9520, L506.0400, L500.4050 ####[facility] [address] [place], [address] CO2 [Moles/Vol] 22.1 mmol/L Normal 21.0-32.0 [facility] Comment on above: Performed By: #### L 501.2300, L501.5200, L100.0100, L501.9520, L506.0400, L500.4050 ####[facility] [address] [place], [address] Creatinine [Mass/Vol] 0.85 mg/dL Normal 0.70-1.20 [facility] Comment on above: Performed By: #### L 501.2300, L501.5200, L100.0100, L501.9520, L506.0400, L500.4050 ####[facility] [address] [place], [address] ECRCL 56.03 ml/min Normal 50-250 [facility] Comment on above: Performed By: #### L 501.2300, L501.5200, L100.0100, L501.9520, L506.0400, L500.4050 ####[facility] [address] [place], [address] GAP 12 Normal 5-15 [facility] Comment on above: Performed By: #### L 501.2300, L501.5200, L100.0100, L501.9520, L506.0400, L500.4050 ####[facility] [address] [place], [address] GFR/1.73 sq M.predicted among non-blacks MDRD (S/P/Bld) [Vol rate/Area] 74 mL/min/{1.73_m2} Normal >60 [facility] Comment on above: Result Comment: mL/m in/1.73m2 CKD-EPI Creatinine Equation (2020) Performed By: #### L 501.2300, L501.5200, L100.0100, L501.9520, L506.0400, L500.4050 ####[facility] [address] [place], [address] Globulin (S) [Mass/Vol] 3.0 g/dL Normal 2.2-4.2 [facility] Comment on above: Performed By: #### L 501.2300, L501.5200, L100.0100, L501.9520, L506.0400, L500.4050 ####[facility] [address] [place], [address] Glucose [Mass/Vol] 158 mg/dL High 70-99 [facility] Comment on above: Performed By: #### L 501.2300, L501.5200, L100.0100, L501.9520, L506.0400, L500.4050 ####[facility] [address] [place], [address] Potassium [Moles/Vol] 3.8 mmol/L Normal 3.3-5.1 [facility] Comment on above: Performed By: #### L 501.2300, L501.5200, L100.0100, L501.9520, L506.0400, L500.4050 ####[facility] [address] [place], [address] Sodium [Moles/Vol] 140 mmol/L Normal 133-145 [facility] Comment on above: Performed By: #### L 501.2300, L501.5200, L100.0100, L501.9520, L506.0400, L500.4050 ####[facility] [address] [place], [address] T PROT 6.7 g/dL Normal 5.9-8.4 [facility] Comment on above: Performed By: #### L 501.2300, L501.5200, L100.0100, L501.9520, L506.0400, L500.4050 ####[facility] [address] [place], [address] Urea nitrogen [Mass/Vol] 7 mg/dL Normal 4-19 [facility] Comment on above: Performed By: #### L 501.2300, L501.5200, L100.0100, L501.9520, L506.0400, L500.4050 ####[facility] [address] [place], [address] Eosinophil percentageOrdered By: [facility] on 03-16-[facility]25 Eosinophils/100 WBC (Bld) 0.9 % 0-5 [facility] Erythrocyte distribution wid th ratioOrdered By: [facility] Jim on 03-16-2025 Erythrocyte distribution width (RBC) [Ratio] 17.6 % High 11.6-14.6 [facility] Erythrocyte distribution wid th standard deviationOrdered By: [facility] Jim on 03-16-2025 Erythrocyte distribution width (RBC) [Ratio] 64.3 fl High 35.1-43.9 [facility] Glomerular filtration rate ( GFR) estimation/1.73 sq m using serum, plasma, or whole bOrdered By: [facility] Fern[facility] on 03-16-2025 GFR/1.73 sq M.predicted among non-blacks MDRD (S/P/Bld) [Vol rate/Area] 74 mL/min/{1.73_m2} >60 [facility] Comment on above: mL/min/1.73m2 CKD-EP I Creatinine Equation (2020) Hematocrit Auto (Bld) [Volum e fraction]Ordered By: [facility] on 03-16-2025 Hematocrit (Bld) [Volume fraction] 28.4 % Low 37-47 [facility] Hemoglobin measurementOrdere d By: [facility] on 03-16-2025 Hemoglobin (Bld) [Mass/Vol] 9.5 g/dL Low 12.0-15.0 [facility] Immature granulocytes/100 WB C Auto (Bld)Ordered By: [facility] on 03-16-2025 Immature granulocytes/100 WBC (Bld) 0.700 % 0.0-0.9 [facility] Comment on above: IG% - Immature Granu locytes (promyelocytes, myelocytes and metamyelocytes) > 1% indicates that a LEFT SHIFT is Present. L509.6001on 03-16-2025 CORTISOL 9.88 ug/dL Normal 6.02-18.40 [facility] Comment on above: Performed By: #### L 509.6001 ####[facility] [address] [place], [place], [address] Laboratory - Chemistry and C hemistry - challengeOrdered By: Sherice Fernandez on 03-16-2025 AST [Catalytic activity/Vol] 73 U/L High <32 [facility] MCV (mean corpuscular volume ) determinationOrdered By: Sherice Fernandez on 03-16-2025 MCV (RBC) [Entitic vol] 98.6 fL 81-99 [facility] Magnesiumon 03-16-2025 Magnesium [Mass/Vol] 1.5 mg/dL Normal 1.5-2.2 [facility] Comment on above: Performed By: #### L 501.2300, L501.5200, L100.0100, L501.9520, L506.0400, L500.4050 ####[facility] [address] [place], [place], [id number] Magnesium measurement (mass/ volume)Ordered By: Sherice Fernandez on 03-16-2025 Magnesium (Unsp spec) [Mass/Vol] 1.5 mg/dL 1.5-2.2 [facility] Mean corpuscular hemoglobin (MCH) determinationOrdered By: Sherice Fernandez on 03-16-2025 MCH (RBC) [Entitic mass] 33.0 pg High 27.0-32.0 [facility] Mean corpuscular hemoglobin concentration (MCHC) determinationOrdered By: Sherice Fernandez on 03-16-2025 MCHC (RBC) [Mass/Vol] 33.5 g/dL 32-36 [facility] Mean platelet volume determi nationOrdered By: Sherice Fernandez on 03-16-2025 Platelet mean volume (Bld) [Entitic vol] 10.5 fL 6.2-12.0 [facility] Monocyte percentageOrdered B y: Sherice Fernandez on 03-16-2025 Monocytes/100 WBC (Bld) 19.9 % High 0-10 [facility] Neutrophil percentageOrdered By: Sherice Fernandez on 03-16-2025 Neutrophils/100 WBC (Bld) 59.3 % 47-70 [facility] Nucleated red blood cell per centageOrdered By: Sherice Fernandez on 03-16-2025 Nucleated RBC/100 WBC (Bld) [Ratio] 0 % 0-5 [facility] Oncology Visit Reporton 02-17 Oncology Visit Report Normal [facility] Phosphoruson 03-16-2025 Phosphate [Mass/Vol] 3.4 mg/dL Normal 2.7-4.5 [facility] Comment on above: Performed By: #### L 501.2300, L501.5200, L100.0100, L501.9520, L506.0400, L500.4050 ####[facility] [address] [place], [address] Platelet countOrdered By: Melva Fernandez on 03-16-2025 Platelets (Bld) [#/Vol] 192 10*3/uL 150-450 [facility] Potassium measurement (mass/ volume)Ordered By: Sherice Fernandez on 03-16-2025 Potassium (Unsp spec) [Mass/Vol] 3.8 mmol/L 3.3-5.1 [facility] RBC Auto (Bld) [#/Vol]Ordere d By: Sherice Fernandez on 03-16-2025 RBC (Bld) [#/Vol] 2.88 10*6/uL Low 4.2-5.4 [facility] Serum creatinine measurement (mass/volume)Ordered By: Sherice Fernandez on 03-16-2025 Creatinine [Mass/Vol] 0.85 mg/dL 0.70-1.20 [facility] Serum globulin measurementOr dered By: Sherice Fernandez on 03-16-2025 Globulin (S) [Mass/Vol] 3.0 g/dL 2.2-4.2 [facility] Serum glucose measurement (m ass/volume)Ordered By: Sherice Fernandez on 03-16-2025 Glucose [Mass/Vol] 158 mg/dL High 70-99 [facility] Serum or plasma alanine encarnacion otransferase (ALT) measurementOrdered By: Sherice Fernandez on 03-16-2025 ALT [Catalytic activity/Vol] 19 U/L <35 [facility] Serum or plasma albumin jayro urement (mass/volume)Ordered By: [facility] on 03-16-2025 Albumin [Mass/Vol] 3.8 g/dL 3.4-4.8 [facility] Serum or plasma albumin/glob ulin mass ratioOrdered By: [facility]25 Albumin/Globulin [Mass ratio] 1.3 {ratio} 0.9-2.4 [facility] Serum or plasma alkaline lukas sphatase measurementOrdered By: [facility] on 03-16-2025 ALP [Catalytic activity/Vol] 158 U/L High 35-104 [facility] Serum or plasma calcium jayro urement (mass/volume)Ordered By: Sherice Fernandez on 03-16-2025 Calcium [Mass/Vol] 9.8 mg/dL 7.6-11.0 [facility] Serum or plasma cortisol caesar surement (mass/volume)Ordered By: [facility] on 03-16-2025 Cortisol [Mass/Vol] 9.88 ug/dL 6.02-18.40 [facility] Serum or plasma urea nitroge n measurement (mass/volume)Ordered By: [facility] on 03-16-2025 Urea nitrogen [Mass/Vol] 7 mg/dL 4-19 [facility] Sodium levelOrdered By: [facility] adrian Fernandez on 03-16-2025 Sodium [Moles/Vol] 140 mmol/L 133-145 [facility] T4 Free Directon 03-16-2025 T4 FREE DIRECT 1.10 ng/dL Normal 0.76-1.46 [facility] Comment on above: Performed By: #### L 501.2300, L501.5200, L100.0100, L501.9520, L506.0400, L500.4050 ####[facility] [address] [place], [place], [id number] T4 freeOrdered By: Carmellaadrian Connie gualberto on 03-16-2025 Free T4 [Mass/Vol] 1.10 ng/dL 0.76-1.46 [facility] TSH DL <= 0.005 mIU/L QnOrde red By: Carmellaadrian Fernandez on 03-16-2025 TSH Qn 2.960 uIU/mL 0.300-4.200 [facility] Thyroid Stim Hormone (TSH)on 03-16-2025 TSH 2.960 uIU/mL Normal 0.300-4.200 [facility] Comment on above: Performed By: #### L 501.2300, L501.5200, L100.0100, L501.9520, L506.0400, L500.4050 ####[facility] [address] [place], [address] Total proteinOrdered By: Nain canseco Jim on 03-16-2025 Protein [Mass/Vol] 6.7 g/dL 5.9-8.4 [facility] White blood cell (WBC) count Ordered By: Sherice Fernandez on 03-16-2025 WBC (Bld) [#/Vol] 5.4 10*3/uL 4.4-11.0 [facility] Absolute lymphocyte countOrd ered By: Sherice Fernandez on 02-24-2025 Lymphocytes Auto (Unsp spec) [#/Vol] 1.24 10*3/uL 0.83-4.51 [facility] Anion gap in Serum or Plasma Ordered By: Sherice Fernandez on 02-24-2025 Anion gap [Moles/Vol] 11 mmol/L 5-15 [facility] Automated lymphocyte count a s percentage of total leukocytesOrdered By: Sherice Fernandez on 02-24-2025 Lymphocytes/100 WBC Auto (Unsp spec) 18.7 % Low 19-41 [facility] BUN/creatinine ratioOrdered By: Sherice Fernandez on 02-24-2025 Urea nitrogen/Creatinine [Mass ratio] 15.8 mg/mg 10-20 [facility] Basophil percentageOrdered B y: Sherice Fernandez on 02-24-2025 Basophils/100 WBC (Bld) 0.6 % 0-1 [facility] Bilirubin, totalOrdered By: Sherice Fernandez on 02-24-2025 Bilirubin [Mass/Vol] 0.24 mg/dL Normal 0.00-1.30 [facility] Comment on above: Performed By: #### L 100.0100, L506.0400, L501.9520, L500.4050, L501.5200, L501.2300 ####[facility] [address] [place], [place], [id number] CBC W/Diff, AutomatedOrdered By: Sherice Fernandez on 02-24-2025 Anisocytosis Ql (Bld) 13 [facility] Comment on above: Performed By: #### L 100.0100, L506.0400, L501.9520, L500.4050, L501.5200, L501.2300 ####[facility] [address] [place], [place], [id number] CBC W/Diff, Automatedon 02-15 PLT EST A Normal ADEQ [facility] Comment on above: Performed By: #### L 100.0100, L506.0400, L501.9520, L500.4050, L501.5200, L501.2300 ####[facility] [address] [place], [address] RED CELL MORPH NORM C+C Normal NORM C C [facility] Comment on above: Performed By: #### L 100.0100, L506.0400, L501.9520, L500.4050, L501.5200, L501.2300 ####[facility] [address] [place], [address] Carbon dioxide, total [Moles /volume] in Central venous bloodOrdered By: Sherice Fernandez on 02-24-2025 CO2 [Moles/Vol] 24.1 mmol/L Normal 21.0-32.0 [facility] Comment on above: Performed By: #### L 100.0100, L506.0400, L501.9520, L500.4050, L501.5200, L501.2300 ####[facility] [address] [place], [address] Chloride assayOrdered By: Melva Fernandez on 02-24-2025 Chloride [Moles/Vol] 104 mmol/L Normal 98-108 [facility] Comment on above: Performed By: #### L 100.0100, L506.0400, L501.9520, L500.4050, L501.5200, L501.2300 ####[facility] [address] [place], [address] Comprehensive Metabolic Prof ilon 02-24-2025 ALK PHOS 155 U/L High 35-104 [facility] Comment on above: Performed By: #### L 100.0100, L506.0400, L501.9520, L500.4050, L501.5200, L501.2300 ####[facility] [address] [place], [address] AST [Catalytic activity/Vol] 43 U/L High <=31 [facility] Comment on above: Performed By: #### L 100.0100, L506.0400, L501.9520, L500.4050, L501.5200, L501.2300 ####[facility] [address] [place], [address] BUN/CRE 15.8 RATIO Normal 10-20 [facility] Comment on above: Performed By: #### L 100.0100, L506.0400, L501.9520, L500.4050, L501.5200, L501.2300 ####[facility] [address] [place], [address] ECRCL 59.36 ml/min Normal 50-250 [facility] Comment on above: Performed By: #### L 100.0100, L506.0400, L501.9520, L500.4050, L501.5200, L501.2300 ####[facility] [address] [place], [address] GAP 11 Normal 5-15 [facility] Comment on above: Performed By: #### L 100.0100, L506.0400, L501.9520, L500.4050, L501.5200, L501.2300 ####[facility] [address] [place], [address] Potassium [Moles/Vol] 3.9 mmol/L Normal 3.3-5.1 [facility] Comment on above: Performed By: #### L 100.0100, L506.0400, L501.9520, L500.4050, L501.5200, L501.2300 ####[facility] [address] [place], [address] T PROT 6.6 g/dL Normal 5.9-8.4 [facility] Comment on above: Performed By: #### L 100.0100, L506.0400, L501.9520, L500.4050, L501.5200, L501.2300 ####[facility] [address] [place], [address] Eosinophil percentageOrdered By: Sherice Fernandez on 02-24-2025 Eosinophils/100 WBC (Bld) 0.6 % 0-5 [facility] Erythrocyte distribution wid th ratioOrdered By: Sherice Fernandez on 02-24-2025 Erythrocyte distribution width (RBC) [Ratio] 20.3 % High 11.6-14.6 [facility] Erythrocyte distribution wid th standard deviationOrdered By: Sherice Fernandez on 02-24-2025 Erythrocyte distribution width (RBC) [Ratio] 74.4 fl High 35.1-43.9 [facility] Erythrocyte morphology asses smentOrdered By: Sherice Fernandez on 02-24-2025 RBC morphology finding Nom (Bld) NORM C+C NORMAL NORM C&C [facility] Glomerular filtration rate ( GFR) estimation/1.73 sq m using serum, plasma, or whole bOrdered By: Sherice Fernandez on 02-24-2025 GFR/1.73 sq M.predicted among non-blacks MDRD (S/P/Bld) [Vol rate/Area] 78 mL/min/{1.73_m2} Normal >60 [facility] Comment on above: Result Comment: mL/m in/1.73m2 CKD-EPI Creatinine Equation (2020) Performed By: #### L 100.0100, L506.0400, L501.9520, L500.4050, L501.5200, L501.2300 ####[facility] [address] [place], [place], [phone] Hematocrit Auto (Bld) [Volum e fraction]Ordered By: Sherice Fernandez on 02-24-2025 Hematocrit (Bld) [Volume fraction] 31.1 % Low 37-47 [facility] Hemoglobin measurementOrdere d By: Sherice Fernandez on 02-24-2025 Hemoglobin (Bld) [Mass/Vol] 10.1 g/dL Low 12.0-15.0 [facility] Immature granulocytes/100 WB C Auto (Bld)Ordered By[facility] on 02-24-2025 Immature granulocytes/100 WBC (Bld) 1.200 % High 0.0-0.9 [facility] MCV (mean corpuscular volume ) determinationOrdered By: [facility] on 02-24-2025 MCV (RBC) [Entitic vol] 97.8 fL 81-99 [facility] Magnesiumon 02-24-2025 Magnesium [Mass/Vol] 1.6 mg/dL Normal 1.5-2.2 [facility] Comment on above: Performed By: #### L 100.0100, L506.0400, L501.9520, L500.4050, L501.5200, L501.2300 ####[facility] [address] [place], [place], [phone] Magnesium measurement (mass/ volume)Ordered By: Sherice Fernandez on 02-24-2025 Magnesium (Unsp spec) [Mass/Vol] 1.6 mg/dL 1.5-2.2 [facility] Mean corpuscular hemoglobin (MCH) determinationOrdered By: Sherice Fernandez on 02-24-2025 MCH (RBC) [Entitic mass] 31.8 pg 27.0-32.0 [facility] Monocyte percentageOrdered B y: Sherice Fernandez on 02-24-2025 Monocytes/100 WBC (Bld) 18.1 % High 0-10 [facility] Neutrophil percentageOrdered By: Sherice Fernandez on 02-24-2025 Neutrophils/100 WBC (Bld) 60.8 % 47-70 [facility] No Panel InformationOrdered By: Sherice Fernandez on 02-24-2025 13 [facility] 43 U/L High <32 [facility] Oncology Visit Reporton 02-15 Oncology Visit Report Normal [facility] Phosphoruson 02-24-2025 Phosphate [Mass/Vol] 3.4 mg/dL Normal 2.7-4.5 [facility] Comment on above: Performed By: #### L 100.0100, L506.0400, L501.9520, L500.4050, L501.5200, L501.2300 ####[facility] [address] [place], [address] Platelet countOrdered By: Melva Fernandez on 02-24-2025 Platelets (Bld) [#/Vol] 317 10*3/uL 150-450 [facility] Platelet estimateOrdered By: Sherice Fernandez on 02-24-2025 Platelets LM Ql (Bld) A ADEQ [facility] Potassium measurement (mass/ volume)Ordered By: Sherice Fernandez on 02-24-2025 Potassium (Unsp spec) [Mass/Vol] 3.9 mmol/L 3.3-5.1 [facility] RBC Auto (Bld) [#/Vol]Ordere d By: Sherice Fernandez on 02-24-2025 RBC (Bld) [#/Vol] 3.18 10*6/uL Low 4.2-5.4 [facility] Serum creatinine measurement (mass/volume)Ordered By: Sherice Fernandez on 02-24-2025 Creatinine [Mass/Vol] 0.81 mg/dL Normal 0.70-1.20 [facility] Comment on above: Performed By: #### L 100.0100, L506.0400, L501.9520, L500.4050, L501.5200, L501.2300 ####[facility] [address] [place], [address] Serum globulin measurementOr dered By: Sherice Fernandez on 02-24-2025 Globulin (S) [Mass/Vol] 2.7 g/dL Normal 2.2-4.2 [facility] Comment on above: Performed By: #### L 100.0100, L506.0400, L501.9520, L500.4050, L501.5200, L501.2300 ####[facility] [address] [place], [place], [address] Serum glucose measurement (m ass/volume)Ordered By: Sherice Fernandez on 02-24-2025 Glucose [Mass/Vol] 123 mg/dL High 70-99 [facility] Comment on above: Performed By: #### L 100.0100, L506.0400, L501.9520, L500.4050, L501.5200, L501.2300 ####[facility] [address] [place], [place], [address] Serum or plasma alanine encarnacion otransferase (ALT) measurementOrdered By: Sherice Fernandez on 02-24-2025 ALT [Catalytic activity/Vol] 17 U/L Normal <=34 [facility] Comment on above: Performed By: #### L 100.0100, L506.0400, L501.9520, L500.4050, L501.5200, L501.2300 ####[facility] [address] [place], [address] Serum or plasma albumin jayro urement (mass/volume)Ordered By: Sherice Fernandez on 02-24-2025 Albumin [Mass/Vol] 3.9 g/dL Normal 3.4-4.8 [facility] Comment on above: Performed By: #### L 100.0100, L506.0400, L501.9520, L500.4050, L501.5200, L501.2300 ####[facility] [address] [place], [place], [phone]) Serum or plasma albumin/glob ulin mass ratioOrdered By: Sherice Fernandez on 02-24-2025 Albumin/Globulin [Mass ratio] 1.4 {ratio} Normal 0.9-2.4 [facility] Comment on above: Performed By: #### L 100.0100, L506.0400, L501.9520, L500.4050, L501.5200, L501.2300 ####[facility] [address] [place], [address] Serum or plasma alkaline lukas sphatase measurementOrdered By: Sherice Fernandez on 02-24-2025 ALP [Catalytic activity/Vol] 155 U/L High 35-104 [facility] Serum or plasma calcium jayro urement (mass/volume)Ordered By: Sherice Fernandez on 02-24-2025 Calcium [Mass/Vol] 9.4 mg/dL Normal 7.6-11.0 [facility] Comment on above: Performed By: #### L 100.0100, L506.0400, L501.9520, L500.4050, L501.5200, L501.2300 ####[facility] [address] [place], [address] Serum or plasma urea nitroge n measurement (mass/volume)Ordered By: Sherice Fernandez on 02-24-2025 Urea nitrogen [Mass/Vol] 13 mg/dL Normal 4-19 [facility] Comment on above: Performed By: #### L 100.0100, L506.0400, L501.9520, L500.4050, L501.5200, L501.2300 ####[facility] [address] [place], [place], [id number] Sodium levelOrdered By: Carmella Fernandez on 02-24-2025 Sodium [Moles/Vol] 139 mmol/L Normal 133-145 [facility] Comment on above: Performed By: #### L 100.0100, L506.0400, L501.9520, L500.4050, L501.5200, L501.2300 ####[facility] [address] [facility] [place], [place], [id number] T4 Free Directon 02-24-2025 T4 FREE DIRECT 0.80 ng/dL Normal 0.76-1.46 [facility] Comment on above: Performed By: #### L 100.0100, L506.0400, L501.9520, L500.4050, L501.5200, L501.2300 ####[facility] [address] [facility] [place], [place], [phone] T4 freeOrdered By: Sherice burciaga on 02-24-2025 Free T4 [Mass/Vol] 0.80 ng/dL 0.76-1.46 [facility] TSH DL <= 0.005 mIU/L QnOrde red By: Sherice Fernandez on 02-24-2025 TSH Qn 3.640 uIU/mL 0.300-4.200 [facility] Thyroid Stim Hormone (TSH)on 02-24-2025 TSH 3.640 uIU/mL Normal 0.300-4.200 [facility] Comment on above: Performed By: #### L 100.0100, L506.0400, L501.9520, L500.4050, L501.5200, L501.2300 ####[facility] [address] [place], [address] Total proteinOrdered By: Nain canseco Jim on 02-24-2025 Protein [Mass/Vol] 6.6 g/dL 5.9-8.4 [facility] White blood cell (WBC) count Ordered By: Sherice Fernandez on 02-24-2025 WBC (Bld) [#/Vol] 6.6 10*3/uL 4.4-11.0 [facility] CT Chest AND Abd W/ Contrast on 02-17-2025 CT Chest AND Abd W/ Contrast Normal [facility] Lumbar Spine 2 or 3 Viewson 02-16-2025 Lumbar Spine 2 or 3 Views Normal [facility] MR/POSTOP.ANEon 02-16-2025 MR/POSTOP.ANE Normal [facility] MR/KJSQVNSY1gy 02-16-2025 MR/POSTOPAN2 Normal [facility] Operative Reporton Operative Report Normal [facility] MR/PAT.ANEon 02-11-2025 MR/PAT.ANE Normal [facility] CBC W/Diff, Automatedon 01-16 PATH REV Reviewed Normal [facility] Comment on above: Result Comment: SEE REPORT IN PATIENT'S EMR AMENDED REPORT 02/05/25 1614 PATH REV previously reported as: January anastasia Performed By: #### L 500.2500, L100.0100 ####[facility] [address] [place], [place], [address] Absolute lymphocyte countOrd ered By: Sherice Fernandez on 02-03-2025 Lymphocytes Auto (Unsp spec) [#/Vol] 1.14 10*3/uL 0.83-4.51 [facility] Absolute neutrophil countOrd ered By: Sherice Fernandez on 02-03-2025 Neutrophils (Bld) [#/Vol] 3.1 10*3/uL 2.0-7.7 [facility] Anion gap in Serum or Plasma Ordered By: Sherice Fernandez on 02-03-2025 Anion gap [Moles/Vol] 11 mmol/L 5-15 [facility] Automated lymphocyte count a s percentage of total leukocytesOrdered By: Sherice Smithestefany on 02-03-2025 Lymphocytes/100 WBC Auto (Unsp spec) 19.9 % - [facility] BUN/creatinine ratioOrdered By: Sherice Smithestefany on 02-03-2025 Urea nitrogen/Creatinine [Mass ratio] 8.6 mg/mg Low 10- [facility] Basophil percentageOrdered B y: Sherice Jim on 02-03-2025 Basophils/100 WBC (Bld) 1.9 % High 0-1 [facility] Bilirubin, totalOrdered By: Sherice Jim on 02-03-2025 Bilirubin [Mass/Vol] 0.41 mg/dL 0.00-1.30 [facility] CBC W/Diff, Automatedon 01-16 Anisocytosis Ql (Bld) 1+ Normal [facility] Comment on above: Performed By: #### L 100.0100, L501.5200, L500.4050, L506.0400, L501.9520, L501.2300 ####[facility] [id number] [place], [address] Carbon dioxide, total [Moles /volume] in Central venous bloodOrdered By: Sherice Jim on 02-03-2025 CO2 [Moles/Vol] 24.1 mmol/L 21.0-32.0 [facility] Chloride assayOrdered By: Melva Fernandez on 02-03-2025 Chloride [Moles/Vol] 106 mmol/L 98-108 [facility] Comprehensive Metabolic Prof ilon 02-03-2025 Albumin [Mass/Vol] 3.4 g/dL Normal 3.4-4.8 [facility] Comment on above: Performed By: #### L 100.0100, L501.5200, L500.4050, L506.0400, L501.9520, L501.2300 ####[facility] [address] [place], [place], [id number] Albumin/Globulin [Mass ratio] 1.0 {ratio} Normal 0.9-2.4 [facility] Comment on above: Performed By: #### L 100.0100, L501.5200, L500.4050, L506.0400, L501.9520, L501.2300 ####[facility] [address] [place], [address] ALK PHOS 162 U/L High 35-104 [facility] Comment on above: Performed By: #### L 100.0100, L501.5200, L500.4050, L506.0400, L501.9520, L501.2300 ####[facility] [address] [place], [address] ALT [Catalytic activity/Vol] 10 U/L Normal <=34 [facility] Comment on above: Performed By: #### L 100.0100, L501.5200, L500.4050, L506.0400, L501.9520, L501.2300 ####[facility] [address] [place], [address] AST [Catalytic activity/Vol] 39 U/L High <=31 [facility] Comment on above: Performed By: #### L 100.0100, L501.5200, L500.4050, L506.0400, L501.9520, L501.2300 ####[facility] [address] [place], [address] Bilirubin [Mass/Vol] 0.41 mg/dL Normal 0.00-1.30 [facility] Comment on above: Performed By: #### L 100.0100, L501.5200, L500.4050, L506.0400, L501.9520, L501.2300 ####[facility] [address] [place], [address] BUN/CRE 8.6 RATIO Low 10-20 [facility] Comment on above: Performed By: #### L 100.0100, L501.5200, L500.4050, L506.0400, L501.9520, L501.2300 ####[facility] [address] [place], [address] Calcium [Mass/Vol] 9.4 mg/dL Normal 7.6-11.0 [facility] Comment on above: Performed By: #### L 100.0100, L501.5200, L500.4050, L506.0400, L501.9520, L501.2300 ####[facility] [address] [place], [address] Chloride [Moles/Vol] 106 mmol/L Normal 98-108 [facility] Comment on above: Performed By: #### L 100.0100, L501.5200, L500.4050, L506.0400, L501.9520, L501.2300 ####[facility] [address] [place], [address] CO2 [Moles/Vol] 24.1 mmol/L Normal 21.0-32.0 [facility] Comment on above: Performed By: #### L 100.0100, L501.5200, L500.4050, L506.0400, L501.9520, L501.2300 ####[facility] [address] [place], [address] Creatinine [Mass/Vol] 0.82 mg/dL Normal 0.70-1.20 [facility] Comment on above: Performed By: #### L 100.0100, L501.5200, L500.4050, L506.0400, L501.9520, L501.2300 ####[facility] [address] [place], [address] ECRCL 52.81 ml/min Normal 50-250 [facility] Comment on above: Performed By: #### L 100.0100, L501.5200, L500.4050, L506.0400, L501.9520, L501.2300 ####[facility] [address] [place], [address] GAP 11 Normal 5-15 [facility] Comment on above: Performed By: #### L 100.0100, L501.5200, L500.4050, L506.0400, L501.9520, L501.2300 ####[facility] [address] [place], [address] GFR/1.73 sq M.predicted among non-blacks MDRD (S/P/Bld) [Vol rate/Area] 77 mL/min/{1.73_m2} Normal >60 [facility] Comment on above: Result Comment: mL/m in/1.73m2 CKD-EPI Creatinine Equation (2020) Performed By: #### L 100.0100, L501.5200, L500.4050, L506.0400, L501.9520, L501.2300 ####[facility] [address] [place], [address] Globulin (S) [Mass/Vol] 3.3 g/dL Normal 2.2-4.2 [facility] Comment on above: Performed By: #### L 100.0100, L501.5200, L500.4050, L506.0400, L501.9520, L501.2300 ####[facility] [address] [place], [address] Glucose [Mass/Vol] 108 mg/dL High 70-99 [facility] Comment on above: Performed By: #### L 100.0100, L501.5200, L500.4050, L506.0400, L501.9520, L501.2300 ####[facility] [address] [place], [address] Potassium [Moles/Vol] 4.0 mmol/L Normal 3.3-5.1 [facility] Comment on above: Performed By: #### L 100.0100, L501.5200, L500.4050, L506.0400, L501.9520, L501.2300 ####[facility] [address] [place], [address] Sodium [Moles/Vol] 141 mmol/L Normal 133-145 [facility] Comment on above: Performed By: #### L 100.0100, L501.5200, L500.4050, L506.0400, L501.9520, L501.2300 ####[facility] [address] [place], [address] T PROT 6.6 g/dL Normal 5.9-8.4 [facility] Comment on above: Performed By: #### L 100.0100, L501.5200, L500.4050, L506.0400, L501.9520, L501.2300 ####[facility] [address] [place], [address] Urea nitrogen [Mass/Vol] 7 mg/dL Normal 4-19 [facility] Comment on above: Performed By: #### L 100.0100, L501.5200, L500.4050, L506.0400, L501.9520, L501.2300 ####[facility] [address] [place], [address] Eosinophil percentageOrdered By: Sherice Fernandez on 02-03-2025 Eosinophils/100 WBC (Bld) 0.9 % 0-5 [facility] Erythrocyte distribution wid th ratioOrdered By: Sherice Fernandez on 02-03-2025 Erythrocyte distribution width (RBC) [Ratio] 19.5 % High 11.6-14.6 [facility] Erythrocyte distribution wid th standard deviationOrdered By: Sherice Fernandez on 02-03-2025 Erythrocyte distribution width (RBC) [Ratio] 65.8 fl High 35.1-43.9 [facility] Glomerular filtration rate ( GFR) estimation/1.73 sq m using serum, plasma, or whole bOrdered By: Sherice Fernandez on 02-03-2025 GFR/1.73 sq M.predicted among non-blacks MDRD (S/P/Bld) [Vol rate/Area] 77 mL/min/{1.73_m2} >60 [facility] Comment on above: mL/min/1.73m2 CKD-EP I Creatinine Equation (2020) Hematocrit Auto (Bld) [Volum e fraction]Ordered [facility] on 02-03-2025 Hematocrit (Bld) [Volume fraction] 32.6 % Low 37-47 [facility] Hemoglobin measurementOrdere d By: Sherice Fernandez on 02-03-2025 Hemoglobin (Bld) [Mass/Vol] 10.7 g/dL Low 12.0-15.0 [facility] Immature granulocytes/100 WB C Auto (Bld)Ordered By: Sherice Fernandez on 02-03-2025 Immature granulocytes/100 WBC (Bld) 0.300 % 0.0-0.9 [facility] Comment on above: IG% - Immature Granu locytes (promyelocytes, myelocytes and metamyelocytes) > 1% indicates that a LEFT SHIFT is Present. Laboratory - Chemistry and C hemistry - challengeOrdered By: [facility] on 02-03-2025 AST [Catalytic activity/Vol] 39 U/L High <32 [facility] Laboratory - Hematology and Cell countsOrdered By: Sherice Fernandez on 02-03-2025 Anisocytosis Ql (Bld) 1+ [facility] MCV (mean corpuscular volume ) determinationOrdered By: [facility] on 02-03-2025 MCV (RBC) [Entitic vol] 92.1 fL 81-99 [facility] Magnesiumon 02-03-2025 Magnesium [Mass/Vol] 1.5 mg/dL Normal 1.5-2.2 [facility] Comment on above: Performed By: #### L 100.0100, L501.5200, L500.4050, L506.0400, L501.9520, L501.2300 ####[facility] [address] [place], [address] Magnesium measurement (mass/ volume)Ordered By: Sherice Fernandez on 02-03-2025 Magnesium (Unsp spec) [Mass/Vol] 1.5 mg/dL 1.5-2.2 [facility] Mean corpuscular hemoglobin (MCH) determinationOrdered By: Sherice Fernandez on 02-03-2025 MCH (RBC) [Entitic mass] 30.2 pg 27.0-32.0 [facility] Mean corpuscular hemoglobin concentration (MCHC) determinationOrdered By: Sherice Fernandez on 02-03-2025 MCHC (RBC) [Mass/Vol] 32.8 g/dL 32-36 [facility] Mean platelet volume determi nationOrdered By: [facility] Jim on 02-03-2025 Platelet mean volume (Bld) [Entitic vol] 9.6 fL 6.2-12.0 [facility] Monocyte percentageOrdered B y: Sherice Fernandez on 02-03-2025 Monocytes/100 WBC (Bld) 22.7 % High 0-10 [facility] Neutrophil percentageOrdered By: [facility] 02-[facility] Neutrophils/100 WBC (Bld) 54.3 % 47-70 [facility] No Panel InformationOrdered By: [facility] Jim on 02-03-2025 1+ [facility] 39 U/L High <32 [facility] Nucleated red blood cell per centageOrdered By: [facility] Jim on 02-03-2025 Nucleated RBC/100 WBC (Bld) [Ratio] 0 % 0-5 [facility] Oncology Visit Reporton 01-16 Oncology Visit Report Normal [facility] Phosphoruson 02-03-2025 Phosphate [Mass/Vol] 4.0 mg/dL Normal 2.7-4.5 [facility] Comment on above: Performed By: #### L 100.0100, L501.5200, L500.4050, L506.0400, L501.9520, L501.2300 ####[facility] [address] [place], [address] Platelet countOrdered By: Melva Fernandez on 02-03-2025 Platelets (Bld) [#/Vol] 356 10*3/uL 150-450 [facility] Potassium measurement (mass/ volume)Ordered By: Sherice Fernandez on 02-03-2025 Potassium (Unsp spec) [Mass/Vol] 4.0 mmol/L 3.3-5.1 [facility] RBC Auto (Bld) [#/Vol]Ordere d By: Sherice Fernandez on 02-03-2025 RBC (Bld) [#/Vol] 3.54 10*6/uL Low 4.2-5.4 [facility] Serum creatinine measurement (mass/volume)Ordered By: Sherice Fernandez on 02-03-2025 Creatinine [Mass/Vol] 0.82 mg/dL 0.70-1.20 [facility] Serum globulin measurementOr dered By: Sherice Fernandez on 02-03-2025 Globulin (S) [Mass/Vol] 3.3 g/dL 2.2-4.2 [facility] Serum glucose measurement (m ass/volume)Ordered By: Sherice Fernandez on 02-03-2025 Glucose [Mass/Vol] 108 mg/dL High 70-99 [facility] Serum or plasma alanine encarnacion otransferase (ALT) measurementOrdered By: Sherice Fernandez on 02-03-2025 ALT [Catalytic activity/Vol] 10 U/L <35 [facility] Serum or plasma albumin jayro urement (mass/volume)Ordered By: Sherice Fernandez on 02-03-2025 Albumin [Mass/Vol] 3.4 g/dL 3.4-4.8 [facility] Serum or plasma albumin/glob ulin mass ratioOrdered By: Sherice Fernandez on 02-03-2025 Albumin/Globulin [Mass ratio] 1.0 {ratio} 0.9-2.4 [facility] Serum or plasma alkaline lukas sphatase measurementOrdered By: Sherice Fernandez on 02-03-2025 ALP [Catalytic activity/Vol] 162 U/L High 35-104 [facility] Serum or plasma calcium jayro urement (mass/volume)Ordered By: Sherice Jim on 02-03-2025 Calcium [Mass/Vol] 9.4 mg/dL 7.6-11.0 [facility] Serum or plasma urea nitroge n measurement (mass/volume)Ordered By: Sherice Jim on 02-03-2025 Urea nitrogen [Mass/Vol] 7 mg/dL 4-19 [facility] Sodium levelOrdered By: Carmella campbell Jim on 02-03-2025 Sodium [Moles/Vol] 141 mmol/L 133-145 [facility] T4 Free Directon 02-03-2025 T4 FREE DIRECT 0.90 ng/dL Normal 0.76-1.46 [facility] Comment on above: Performed By: #### L 100.0100, L501.5200, L500.4050, L506.0400, L501.9520, L501.2300 ####[facility] [address] [place], [address] T4 freeOrdered By: Sherice Connie burciaga on 02-03-2025 Free T4 [Mass/Vol] 0.90 ng/dL 0.76-1.46 [facility] TSH DL <= 0.005 mIU/L QnOrde red By: Sherice Jim on 02-03-2025 TSH Qn 3.490 uIU/mL 0.300-4.200 [facility] Thyroid Stim Hormone (TSH)on 02-03-2025 TSH 3.490 uIU/mL Normal 0.300-4.200 [facility] Comment on above: Performed By: #### L 100.0100, L501.5200, L500.4050, L506.0400, L501.9520, L501.2300 ####[facility] [address] [place], [address] Total proteinOrdered By: Nain canseco Jim on 02-03-2025 Protein [Mass/Vol] 6.6 g/dL 5.9-8.4 [facility] White blood cell (WBC) count Ordered By: Sherice Fernandez on 02-03-2025 WBC (Bld) [#/Vol] 5.7 10*3/uL 4.4-11.0 [facility] CNOVon 01-26-2025 CNOV Office Visit (FAMPWS) BUSHRA RODRIGEZ ([id number]) 1955 F Date Time Provider Department 01/26/25 1:20 PM [facility] During your visit today, we recorded the following information about you: Temperature Pulse Respiration Blood pressure 99.3 degrees 80/minute 16/minute 116/66 Weight 64 kg Girish Lemos MD 01/26/2025 1:43 PM Signed Chief Complaint Patient presents with: Cough: Non-productive Throat Problem: Hoarse and sore sinus congestion with occasional green mucus Perspiration Recording using [employer] software for draft documentation of the visit was discussed with the patient/authorized printing supplies 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 Johnson Dysphagia Dr. 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) Obesity (BMI 30.0-34.9) Other pulmonary embolism without acute cor pulmonale (HCC) Pneumonia due to [facility]- virus Requiring intubation Small cell lung cancer [...] Known Problems Brother Stroke Maternal Grandmother or ID, patient unsure Coronary Artery Disease Maternal Grandfather Alcohol abuse Paternal Grandfather Patient Allergies ALLERGIES Allergen Reactions David Inhibitors Rash Codeine Vomiting, Other: See Comments Headache Remeron [Mirtazapin* Other: See Comments Fatigue Ifnczar-Upl-Rnk Red* Myalgia Merlin Unknown Zetia [Ezetimibe] Myalgia Current Medications Current [...] hours as needed for pain. mv,jaci,iron,mn/folic acid/chol (NQWT-LXEB-LMPVG, PABA, ORAL) Take 1 tablet by mouth once daily. Minoxidil 2 % external solution Apply 1 mL to affected area twice daily. albuterol (PROVENTIL) 2.5 mg /3 mL (more content not included)... Normal [facility] XR CHEST 2V FRONTAL/LATon XR CHEST [...] an approximately 2 cm left perihilar mass Sagger Soak: CHRISTY Transcribe Date/Time: Jan 26 2025 1:53P Dictated by : RAJIV DONOVAN MD This examination was interpreted and the report reviewed and electronically signed by: RAJIV DONOVAN MD on Jan 26 2025 1:58PM EST [id number] CN Normal [facility] XR Chest PA and Lateralon IMPRESSION: 1. Stable findings of underlying interstitial lung disease. 2. Redemonstration of an approximately 2 cm left perihilar mass Sagger Soak: CHRISTY Transcribe Date/Time: Jan 26 2025 1:53P [...] the upper abdomen. DIVISION OF RADIOLOGY Provider, [facility] [place] - 01/26/2025 * * *Final Report* * [...] an approximately 2 cm left perihilar mass Sagger Soak: CHRISTY Transcribe Date/Time: Jan 26 2025 1:53P Dictated by : RAJIV DONOVAN MD This examination was interpreted and the report reviewed and electronically signed by: RAJIV DONOVAN MD on Jan 26 2025 1:58PM EST [facility] Radiology Study [facility]narrative[facility] PA and LateralOrder ed By: [facility] Provider on 01-26-2025 [facility] CNOVon 01-13-2025 CNOV Office Visit (FAMPWS) ELIABUSHRA M ([id number]) 1955 F Date Time Provider Department 01/13/25 9:20 AM GIRISH LEMOS FAMPWS During your visit today, we recorded the following information about you: Pulse Respiration Blood pressure Weight 72/minute 16/minute 104/60 62.1 kg Girish Lemos MD 01/13/2025 10:35 AM Signed Chief Complaint Patient presents with: Hospital F/U HPI Bushra Rodrigez is a 69 year old female who presents here today for Hospital discharge follow up. Patient admitted to [facility] from 01/09 to 01/10 for complaint [...] 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 Johnson Dysphagia Dr. 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) Obesity (BMI 30.0-34.9) Other pulmonary embolism without acute cor pulmonale (HCC) [facility] Requiring intubation Small cell lung cancer [...] Known Problems Brother Stroke Maternal Grandmother or ID, patient unsure Coronary Artery Disease Maternal Grandfather Alcohol abuse Paternal Grandfather Patient Allergies ALLERGIES Allergen Reactions David Inhibitors Rash Codeine Vomiting, Other: See Comments Headache Remeron [Mirtazapin* Other: See Comments Fatigue Mdykozs-Zzs-Ohm Red* Myalgia Merlin Unknown Zetia [Ezetimibe] Myalgia Current Medications Current [...] by trina (more content not included)... Normal [facility] Absolute lymphocyte countOrd ered By: Estrella Cabezas on 01-10-2025 Lymphocytes Auto (Unsp spec) [#/Vol] 1.88 10*3/uL 0.83-4.51 [facility] Absolute neutrophil countOrd ered By: Estrella Cabezas on 01-10-2025 Neutrophils (Bld) [#/Vol] 43.6 10*3/uL High 2.0-7.7 [facility] Anion gap in Serum or Plasma Ordered By: Estrella Cabezas on 01-10-2025 Anion gap [Moles/Vol] 11 mmol/L 5-15 [facility] BUN/creatinine ratioOrdered By: Estrella Cabezas on 01-10-2025 Urea nitrogen/Creatinine [Mass ratio] 21.6 mg/mg High - [facility] Basic Metabolic Profile (BMP )on 01-10-2025 BUN/CRE 21.6 RATIO High 07-06 [facility] Comment on above: Performed By: #### L 500.2500, L100.0100 ####[facility] [address] [place], [address] Calcium [Mass/Vol] 8.5 mg/dL Normal 7.6-11.0 [facility] Comment on above: Performed By: #### L 500.2500, L100.0100 ####[facility] [address] [place], [address] Chloride [Moles/Vol] 104 mmol/L Normal 98-108 [facility] Comment on above: Performed By: #### L 500.2500, L100.0100 ####[facility] [address] [place], [address] CO2 [Moles/Vol] 26.7 mmol/L Normal 21.0-32.0 [facility] Comment on above: Performed By: #### L 500.2500, L100.0100 ####[facility] [address] [place], [address] Creatinine [Mass/Vol] 0.87 mg/dL Normal 0.70-1.20 [facility] Comment on above: Performed By: #### L 500.2500, L100.0100 ####[facility] [address] [place], [address] ECRCL 54.90 ml/min Normal 50-250 [facility] Comment on above: Performed By: #### L 500.2500, L100.0100 ####[facility] [address] [place], [address] GAP 11 Normal 5-15 [facility] Comment on above: Performed By: #### L 500.2500, L100.0100 ####[facility] [address] [place], [address] GFR/1.73 sq M.predicted among non-blacks MDRD (S/P/Bld) [Vol rate/Area] 72 mL/min/{1.73_m2} Normal >60 [facility] Comment on above: Result Comment: mL/m in/1.73m2 CKD-EPI Creatinine Equation (2020) Performed By: #### L 500.2500, L100.0100 ####[facility] [address] [place], [address] Glucose [Mass/Vol] 77 mg/dL Normal 70-99 [facility] Comment on above: Performed By: #### L 500.2500, L100.0100 ####[facility] [address] [place], [address] Potassium [Moles/Vol] 3.9 mmol/L Normal 3.3-5.1 [facility] Comment on above: Performed By: #### L 500.2500, L100.0100 ####[facility] [address] [place], [address] Sodium [Moles/Vol] 142 mmol/L Normal 133-145 [facility] Comment on above: Performed By: #### L 500.2500, L100.0100 ####[facility] [address] [place], [address] Urea nitrogen [Mass/Vol] 19 mg/dL Normal 4-19 [facility] Comment on above: Performed By: #### L 500.2500, L100.0100 ####[facility] [address] [place], [address] Bedside Glucoseon 01-10-2025 FINGERSTICK GLU 75 mg/dL Normal 74-106 [facility] Comment on above: Result Comment: FABRIZIO MAKI OF PATIENT CARE PER NURSING PROTOCOL Performed By: #### L 501.080 ####[facility] [address] [place], [place], [address] FINGERSTICK GLU 116 mg/dL High 74-106 [facility] Comment on above: Result Comment: FABRIZIO MAKI OF PATIENT CARE PER NURSING PROTOCOL Performed By: #### L 501.080 ####[facility] [address] [place], [place], [address] Blood band neutrophil count as percentage of total leukocytesOrdered By: Estrella Cabezas on 01-10-2025 Band form neutrophils/100 WBC (Bld) 1 % 0-5 [facility] Blood lymphocytes/100 leukoc ytesOrdered By: Estrella Cabezas on 01-10-2025 Lymphocytes/100 WBC (Bld) 4 % Low 19-41 [facility] Blood metamyelocytes/100 isa kocytesOrdered By: Estrella Cabezas on 01-10-2025 Metamyelocytes/100 WBC (Bld) 2 % High 0-1 [facility] Blood monocytes/100 leukocyt esOrdered By: Estrella Cabezas on 01-10-2025 Monocytes/100 WBC (Bld) 1 % 0-10 [facility] Blood segmented neutrophils/ 100 leukocytesOrdered By: Estrella Cabezas on 01-10-2025 Segmented neutrophils/100 WBC (Bld) 92 % High 47-70 [facility] COVID 19 AG RAPID (ROSANA Ayers)on 01-10-2025 SARS-CoV-2 (COVID-19) RNA DEBBY+probe Ql (Unsp spec) Normal [facility] Comment on above: Performed By: #### M 100.505 ####[facility] [address] [place], [place], [id number] Carbon dioxide, total [Moles /volume] in Central venous bloodOrdered By: Estrella Cabezas on 01-10-2025 CO2 [Moles/Vol] 26.7 mmol/L 21.0-32.0 [facility] Cells counted Molgen (Bld/Ti ss) [#]Ordered By: Estrella Cabezas on 01-10-2025 Differential Total Cells Counted 100 MANUAL DIFF [facility] Chloride assayOrdered By: David Cabezas on 01-10-2025 Chloride [Moles/Vol] 104 mmol/L 98-108 [facility] Discharge Instructionon 12-17 Discharge Instruction Normal [facility] Echocardiogram study reportO rdered By: Santi Hurd on 01-10-2025 Study report [facility] [address] [place] [address] Echo Complete 01/10/25 0851 MR#: [id number] Acct: [id number] Name: BUSHRA RODRIGEZ Rep #:[id number] : 1955 69 From: Santi Hurd MD Attending Dr: Dr. Jassi Borden MD Status: ADM FARIBA Ordering Dr: Estrella Cabezas MD Date: Location: [facility] Sex: F C Admitted: 01/09/25 Reason For [...] Referring Physician: Estrella Cabezas Performed By: Sesar Ferrera, UMM 01/10/25 1130 Date _ Santi Hurd MD CC: Dr. Fabricio Lemos MD; Dr. Estrella Cabezas MD; Dr. Jassi Borden MD ~ Date Dictated: 01/10/25 0851 Date Transcribed: 01/10/25 113 Sagger Soak: Signed [facility] Work Phone: [phone] Erythrocyte distribution wid th (RBC) [Ratio]Ordered By: Estrella Cabezas on 01-10-2025 Erythrocyte distribution width (RBC) [Entitic vol] 59.4 fL High 35.1-43.9 [facility] Erythrocyte distribution wid th ratioOrdered By: Estrella Cabezas on 01-10-2025 Erythrocyte distribution width (RBC) [Ratio] 18.6 % High 11.6-14.6 [facility] Erythrocyte distribution wid th standard deviationOrdered By: Estrella Cabezas on 01-10-2025 Erythrocyte distribution width (RBC) [Ratio] 59.4 fl High 35.1-43.9 [facility] Estimation of creatinine lubna aranceOrdered By: Estrella Cabezas on 01-10-2025 Estimated Creatinine Clearance Calc 54.90 ml/min 50-250 [facility] GFR/1.73 sq M.predicted mary g non-blacks MDRD (S/P/Bld) [Vol rate/Area]Ordered By: Estrella Cabezas on 01-10-2025 Estimated GFR (MDRD) Non-Af Amer 72 >60 [facility] Comment on above: mL/min/1.73m2 CKD-EP I Creatinine Equation (2020) Glomerular filtration rate ( GFR) estimation/1.73 sq m using serum, plasma, or whole bOrdered By: Estrella Cabezas on 01-10-2025 GFR/1.73 sq M.predicted among non-blacks MDRD (S/P/Bld) [Vol rate/Area] 72 mL/min/{1.73_m2} >60 [facility] Comment on above: mL/min/1.73m2 CKD-EP I Creatinine Equation (2020) Glucose measurement at bedsi deOrdered By: Estrella Cabezas on 01-10-2025 Bedside Glucose (Misc Panel) 75 mg/dL 74-106 [facility] Comment on above: MANAGEMENT OF PATIEN T CARE PER NURSING PROTOCOL Glucose [Mass/Vol] 75 mg/dL 74-106 [facility] Comment on above: MANAGEMENT OF PATIEN T CARE PER NURSING PROTOCOL Hematocrit Auto (Bld) [Volum e fraction]Ordered By: Estrella Cabezas on 01-10-2025 Hematocrit (Bld) [Volume fraction] 30.9 % Low 37-47 [facility] Hemoglobin measurementOrdere d By: Estrella Cabezas on 01-10-2025 Hemoglobin (Bld) [Mass/Vol] 10.4 g/dL Low 12.0-15.0 [facility] Lymphocytes Auto (Unsp spec) [#/Vol]Ordered By: Estrella Cabezas on 01-10-2025 Lymphocytes (Bld) [#/Vol] 1.88 10*3/uL 0.83-4.51 [facility] MCV (mean corpuscular volume ) determinationOrdered By: Estrella Cabezas on 01-10-2025 MCV (RBC) [Entitic vol] 89.0 fL 81-99 [facility] Mean corpuscular hemoglobin (MCH) determinationOrdered By: Estrella Cabezas on 01-10-2025 MCH (RBC) [Entitic mass] 30.0 pg 27.0-32.0 [facility] Mean corpuscular hemoglobin concentration (MCHC) determinationOrdered By: Estrella Cabezas on 01-10-2025 MCHC (RBC) [Mass/Vol] 33.7 g/dL 32-36 [facility] Mean platelet volume determi nationOrdered By: Estrella Cabezas on 01-10-2025 Platelet mean volume (Bld) [Entitic vol] 9.8 fL 6.2-12.0 [facility] Neutrophil percentageOrdered By: Estrella Cabezas on 01-10-2025 Neutrophils (%) (Auto) Not Reportable [facility] Pathologist review Scott (Unsp spec) [Interp]Ordered By: Estrella Cabezas on 01-10-2025 Differential Pathologist's Review January [facility] Platelet countOrdered By: David Cabezas on 01-10-2025 Platelets (Bld) [#/Vol] 419 10*3/uL 150-450 [facility] Platelet estimateOrdered By: Estrella Cabezas on 01-10-2025 Platelets LM Ql (Bld) A ADEQ [facility] Platelets LM Ql (Bld)Ordered By: Estrella Cabezas on 01-10-2025 Platelet Estimate A ADEQ [facility] Potassium (Unsp spec) [Mass/ Vol]Ordered By: Estrella Cabezas on 01-10-2025 Potassium [Moles/Vol] 3.9 mmol/L 3.3-5.1 [facility] Potassium measurement (mass/ volume)Ordered By: Estrella Cabezas on 01-10-2025 Potassium (Unsp spec) [Mass/Vol] 3.9 mmol/L 3.3-5.1 [facility] RBC Auto (Bld) [#/Vol]Ordere d By: Estrella Cabezas on 01-10-2025 RBC (Bld) [#/Vol] 3.47 10*6/uL Low 4.2-5.4 [facility] Review by pathologistOrdered By: Estrella Cabezas on 01-10-2025 Pathologist review Scott (Unsp spec) [Interp] January [facility] Pathologist review Scott (Unsp spec) [Interp] Reviewed [facility] Comment on above: Previous reported re sult: Marah oconnor Edited by: ELGIN on 02/05/25:1614SEE REPORT IN PATIENT'S EMR AMENDED REPORT 02/05/25 1614 PATH REV previously reported as: January anastasia Segmented neutrophils/100 WB C (Bld)Ordered By: Estrella Cabezas on 01-10-2025 Neutrophils/100 WBC (Bld) 92 % High 47-70 [facility] Serum creatinine measurement (mass/volume)Ordered By: Estrella Cabezas on 01-10-2025 Creatinine [Mass/Vol] 0.87 mg/dL 0.70-1.20 [facility] Serum glucose measurement (m ass/volume)Ordered By: Estrella Cabezas on 01-10-2025 Glucose [Mass/Vol] 77 mg/dL 70-99 [facility] Serum or plasma calcium jayro urement (mass/volume)Ordered By: Estrella Cabezas on 01-10-2025 Calcium [Mass/Vol] 8.5 mg/dL 7.6-11.0 [facility] Serum or plasma urea nitroge n measurement (mass/volume)Ordered By: Estrella Cabezas on 01-10-2025 Urea nitrogen [Mass/Vol] 19 mg/dL 4-19 [facility] Sodium levelOrdered By: Kenia Cabezas on 01-10-2025 Sodium [Moles/Vol] 142 mmol/L 133-145 [facility] Total cell countOrdered By: Estrella Cabezas on 01-10-2025 Cells counted [employer] (Bld/Tiss) [#] 100 MANUAL DIFF [facility] White blood cell (WBC) count Ordered By: Estrella Cabezas on 01-10-2025 WBC (Bld) [#/Vol] 46.9 10*3/uL High 4.4-11.0 [facility] Comment on above: CRITICAL VALUE MAIN D TO [id number]/26/25 0548 Tobi Yousif.RESULTS READ BACK BY SAME. 12 Lead EKGon 01-09-2025 12 Lead EKG Normal [facility] Automated lymphocyte count a s percentage of total leukocytesOrdered By: Austin Mack on 01-09-2025 Lymphocytes/100 WBC Auto (Unsp spec) 4.7 % Low 19-41 [facility] Basic Metabolic Profile (BMP )on 01-09-2025 BUN/CRE 25.5 RATIO High 10-20 [facility] Comment on above: Performed By: #### L 100.0100, L500.2500, L501.4021 ####[facility] [address] [place], [address] Calcium [Mass/Vol] 8.8 mg/dL Normal 7.6-11.0 [facility] Comment on above: Performed By: #### L 100.0100, L500.2500, L501.4021 ####[facility] [address] [place], [address] Chloride [Moles/Vol] 107 mmol/L Normal 98-108 [facility] Comment on above: Performed By: #### L 100.0100, L500.2500, L501.4021 ####[facility] [address] [place], [address] CO2 [Moles/Vol] 20.1 mmol/L Low 21.0-32.0 [facility] Comment on above: Performed By: #### L 100.0100, L500.2500, L501.4021 ####[facility] [address] [place], [address] Creatinine [Mass/Vol] 0.67 mg/dL Low 0.70-1.20 [facility] Comment on above: Performed By: #### L 100.0100, L500.2500, L501.4021 ####[facility] [address] [place], [address] ECRCL 61.24 ml/min Normal 50-250 [facility] Comment on above: Performed By: #### L 100.0100, L500.2500, L501.4021 ####[facility] [address] [place], [address] GAP 14 Normal 5-15 [facility] Comment on above: Performed By: #### L 100.0100, L500.2500, L501.4021 ####[facility] [address] [place], [address] GFR/1.73 sq M.predicted among non-blacks MDRD (S/P/Bld) [Vol rate/Area] 94 mL/min/{1.73_m2} Normal >60 [facility] Comment on above: Result Comment: mL/m in/1.73m2 CKD-EPI Creatinine Equation (2020) Performed By: #### L 100.0100, L500.2500, L501.4021 ####[facility] [address] [place], [address] Glucose [Mass/Vol] 64 mg/dL Low 70-99 [facility] Comment on above: Performed By: #### L 100.0100, L500.2500, L501.4021 ####[facility] [address] [place], [address] Potassium [Moles/Vol] 3.6 mmol/L Normal 3.3-5.1 [facility] Comment on above: Performed By: #### L 100.0100, L500.2500, L501.4021 ####[facility] [address] [place], [address] Sodium [Moles/Vol] 141 mmol/L Normal 133-145 [facility] Comment on above: Performed By: #### L 100.0100, L500.2500, L501.4021 ####[facility] [address] [place], [address] Urea nitrogen [Mass/Vol] 17 mg/dL Normal 4-19 [facility] Comment on above: Performed By: #### L 100.0100, L500.2500, L501.4021 ####[facility] [address] [place], [address] Basophil percentageOrdered B y: Austin Mack on 01-09-2025 Basophils/100 WBC (Bld) 0.1 % 0-1 [facility] CBC W/Diff, Automatedon 12-17 PLT EST SLT INC Normal ADEQ [facility] Comment on above: Performed By: #### L 100.0100, L500.2500, L501.4021 ####[facility] [address] [place], [address] COVID-19 virus antigen assay Ordered By: Estrella Cabezas on 01-09-2025 SARS-CoV-2 (COVID-19) Ag IA.rapid Ql (Resp) [facility] Chest 1 View (Portable)on Chest 1 View (Portable) Normal [facility] Echo Completeon 01-09-2025 Echo Complete Normal [facility] Emergency Department Summary on 01-09-2025 Emergency Department Summary Normal [facility] Eosinophil percentageOrdered By: Austin Mack on 01-09-2025 Eosinophils/100 WBC (Bld) 0.0 % 0-5 [facility] H AND P Exam - Hospitaliston 01-09-2025 H&P Exam - Hospitalist Normal [facility] Immature granulocytes/100 WB C Auto (Bld)Ordered By: Austin Mack on 01-09-2025 Immature granulocytes/100 WBC (Bld) 1.800 % High 0.0-0.9 [facility] Comment on above: IG% - Immature Granu locytes (promyelocytes, myelocytes and metamyelocytes) > 1% indicates that a LEFT SHIFT is Present. L499.0042on 01-09-2025 Trop T High Sen 19 ng/L High <=14 [facility] Comment on above: Performed By: #### L 499.0042 ####[facility] [address] [place], [address] L499.0043on 01-09-2025 Trop T High Sen 13 ng/L Normal <=14 [facility] Comment on above: Performed By: #### L 499.0043 ####[facility] [address] [place], [address] L501.4021on 01-09-2025 Trop T High Sen 12 ng/L Normal <=14 [facility] Comment on above: Performed By: #### L 100.0100, L500.2500, L501.4021 ####[facility] [address] [place], [address] L503.7505on 01-09-2025 Natriuretic peptide B (Bld) [Mass/Vol] 3119 pg/mL High <=900 [facility] Comment on above: Result Comment: Hear t Failure Unlikely: < 300 pg/mLHeart Failure Likely< 50 Years: > 450 pg/mL50-75 Years: > 900 pg/mL>75 Years: > 1800 pg/mL Performed By: #### L 503.7505 ####[facility] [address] [place], [place], [id number] Lymphocytes/100 WBC Auto (Un sp spec)Ordered By: Austin Mack on 01-09-2025 Lymphocytes/100 WBC (Bld) 4.7 % Low 19-41 [facility] Monocyte percentageOrdered B y: Austin Mack on 01-09-2025 Monocytes/100 WBC (Bld) 0.2 % 0-10 [facility] Natriuretic peptide.B prohor milan N-Terminal [Mass/Vol]Ordered By: Austin Mack on 01-09-2025 Natriuretic peptide B (Bld) [Mass/Vol] 3119 pg/mL High <900 [facility] Comment on above: Heart Failure Unlike ly: < 300 pg/mLHeart Failure Likely< 50 Years: > 450 pg/mL50-75 Years: > 900 pg/mL>75 Years: > 1800 pg/mL Natriuretic peptide.B prohor milan N-Terminal [Mass/volume] in Serum or PlasmaOrdered By: Austin Mack on 01-09-2025 Natriuretic peptide.B prohormone N-Terminal [Mass/Vol] 3119 pg/mL High <900 [facility] Comment on above: Heart Failure Unlike ly: < 300 pg/mLHeart Failure Likely< 50 Years: > 450 pg/mL50-75 Years: > 900 pg/mL>75 Years: > 1800 pg/mL Nucleated red blood cell per centageOrdered By: Austin Mack on 01-09-2025 Nucleated RBC/100 WBC (Bld) [Ratio] 0 % 0-5 [facility] RESPIRATORY PANEL MOLECULARo n 01-09-2025 RP PANEL Normal [facility] Comment on above: Performed By: #### M 100.638 ####[facility] [address] [place], [place], [address] Respiratory pathogens DNA an d RNA panel DEBBY+probe (Resp)Ordered By: Estrella Cabezas on 01-09-2025 Respiratory Panel (PCR) [facility] Respiratory pathogens detect ion panel by molecular detection methodOrdered By: Estrella Cabezas on 01-09-2025 Respiratory pathogens DNA and RNA panel DEBBY+probe (Resp) [facility] SARS-CoV-2 (COVID-19) Ag IA. rapid Ql (Resp)Ordered By: Estrella Cabezas on 01-09-2025 SARS-CoV-2 Antigen (Rapid) [facility] Troponin T.cardiac High sens itivity method [Mass/Vol]Ordered By: Austin Mack on 01-09-2025 Troponin T High Sensitivity 4 Hour 13 ng/L <14 [facility] Troponin T High Sensitivity 2 Hour 19 ng/L High <14 [facility] Troponin T High Sensitivity 12 ng/L <14 [facility] Troponin T.cardiac [Mass/vol ume] in Serum or Plasma by High sensitivity methodOrdered By: Austin Mack on 01-09-2025 Troponin T.cardiac High sensitivity method [Mass/Vol] 13 ng/L <14 [facility] Troponin T.cardiac High sensitivity method [Mass/Vol] 19 ng/L High <14 [facility] Troponin T.cardiac High sensitivity method [Mass/Vol] 12 ng/L <14 [facility] Absolute neutrophil countOrd ered By: Sherice Fernandez on 01-06-2025 Neutrophils (Bld) [#/Vol] 5.9 10*3/uL 2.0-7.7 [facility] Anion gap in Serum or Plasma Ordered By: Sherice Fernandez on 01-06-2025 Anion gap [Moles/Vol] 13 mmol/L 5-15 [facility] BUN/creatinine ratioOrdered By: Sherice Fernandez on 01-06-2025 Urea nitrogen/Creatinine [Mass ratio] 7.9 mg/mg Low 10-20 [facility] Basophil percentageOrdered B y: Sherice Fernandez on 01-06-2025 Basophils/100 WBC (Bld) 0.7 % 0-1 [facility] Bilirubin, totalOrdered By: Sherice Fernandez on 01-06-2025 Bilirubin [Mass/Vol] 0.62 mg/dL 0.00-1.30 [facility] Blood manual differential co mment interpretation (narrative result)Ordered By: Sherice Fernandez on 01-06-2025 Manual differential comment Scott (Bld) [Interp] SCANNED [facility] Comment on above: MONOCYTOSIS NOTED CBC W/Diff, Automatedon 12-17 PATH REV Reviewed Normal [facility] Comment on above: Result Comment: SEE REPORT IN PATIENT'S EMR AMENDED REPORT 01/06/25 5224 PATH REV previously reported as: January Performed By: #### L 501.5200, L500.2500, L100.0100, L501.2300 ####[facility] [address] [place], [address] Absolute Lymph 1.05 X10 3/uL Normal 0.83-4.51 [facility] Comment on above: Performed By: #### L 506.0400, L100.0100, L501.9520, L501.5200, L501.2300, L500.4050 ####[facility] [address] [place], [address] Absolute Neut 5.9 X10 3/uL Normal 2.0-7.7 [facility] Comment on above: Performed By: #### L 506.0400, L100.0100, L501.9520, L501.5200, L501.2300, L500.4050 ####[facility] [address] [place], [address] Basophils/100 WBC (Bld) 0.7 % Normal 0-1 [facility] Comment on above: Performed By: #### L 506.0400, L100.0100, L501.9520, L501.5200, L501.2300, L500.4050 ####[facility] [address] [place], [address] Eosinophils/100 WBC (Bld) 0.3 % Normal 0-5 [facility] Comment on above: Performed By: #### L 506.0400, L100.0100, L501.9520, L501.5200, L501.2300, L500.4050 ####[facility] [address] [place], [address] Erythrocyte distribution width (RBC) [Ratio] 18.2 % High 11.6-14.6 [facility] Comment on above: Performed By: #### L 506.0400, L100.0100, L501.9520, L501.5200, L501.2300, L500.4050 ####[facility] [address] [place], [address] Hematocrit (Bld) [Volume fraction] 33.1 % Low 37-47 [facility] Comment on above: Performed By: #### L 506.0400, L100.0100, L501.9520, L501.5200, L501.2300, L500.4050 ####[facility] [address] [place], [address] Hemoglobin (Bld) [Mass/Vol] 10.8 g/dL Low 12.0-15.0 [facility] Comment on above: Performed By: #### L 506.0400, L100.0100, L501.9520, L501.5200, L501.2300, L500.4050 ####[facility] [address] [place], [address] IG% 1.100 High 0.0-0.9 [facility] Comment on above: Result Comment: IG% - Immature Granulocytes (promyelocytes, myelocytes andmetamyelocytes) > 1% indicates that a LEFT SHIFT is Present. Performed By: #### L 506.0400, L100.0100, L501.9520, L501.5200, L501.2300, L500.4050 ####[facility] [address] [place], [address] Lymphocytes/100 WBC (Bld) 11.7 % Low 19-41 [facility] Comment on above: Performed By: #### L 506.0400, L100.0100, L501.9520, L501.5200, L501.2300, L500.4050 ####[facility] [address] [place], [address] MCH (RBC) [Entitic mass] 29.3 pg Normal 27.0-32.0 [facility] Comment on above: Performed By: #### L 506.0400, L100.0100, L501.9520, L501.5200, L501.2300, L500.4050 ####[facility] [address] [place], [address] MCHC (RBC) [Mass/Vol] 32.6 g/dL Normal 32-36 [facility] Comment on above: Performed By: #### L 506.0400, L100.0100, L501.9520, L501.5200, L501.2300, L500.4050 ####[facility] [address] [place], [address] MCV (RBC) [Entitic vol] 89.9 fL Normal 81-99 [facility] Comment on above: Performed By: #### L 506.0400, L100.0100, L501.9520, L501.5200, L501.2300, L500.4050 ####[facility] [address] [place], [address] Monocytes/100 WBC (Bld) 20.0 % High 0-10 [facility] Comment on above: Performed By: #### L 506.0400, L100.0100, L501.9520, L501.5200, L501.2300, L500.4050 ####[facility] [address] [place], [address] Neutrophils/100 WBC (Bld) 66.2 % Normal 47-70 [facility] Comment on above: Performed By: #### L 506.0400, L100.0100, L501.9520, L501.5200, L501.2300, L500.4050 ####[facility] [address] [place], [address] Nucleated RBC (Bld) [#/Vol] 0 10*3/uL Normal 0-5 [facility] Comment on above: Performed By: #### L 506.0400, L100.0100, L501.9520, L501.5200, L501.2300, L500.4050 ####[facility] [address] [place], [address] Platelet mean volume (Bld) [Entitic vol] 9.9 fL Normal 6.2-12.0 [facility] Comment on above: Performed By: #### L 506.0400, L100.0100, L501.9520, L501.5200, L501.2300, L500.4050 ####[facility] [address] [place], [address] Platelets (Bld) [#/Vol] 483 10*3/uL High 150-450 [facility] Comment on above: Performed By: #### L 506.0400, L100.0100, L501.9520, L501.5200, L501.2300, L500.4050 ####[facility] [address] [place], [address] RBC (Bld) [#/Vol] 3.68 10*6/uL Low 4.2-5.4 [facility] Comment on above: Performed By: #### L 506.0400, L100.0100, L501.9520, L501.5200, L501.2300, L500.4050 ####[facility] [address] [place], [address] RDW SD 59.6 fl High 35.1-43.9 [facility] Comment on above: Performed By: #### L 506.0400, L100.0100, L501.9520, L501.5200, L501.2300, L500.4050 ####[facility] [address] [place], [address] WBC (Bld) [#/Vol] 9.0 10*3/uL Normal 4.4-11.0 [facility] Comment on above: Performed By: #### L 506.0400, L100.0100, L501.9520, L501.5200, L501.2300, L500.4050 ####[facility] [address] [place], [address] Carbon dioxide, total [Moles /volume] in Central venous bloodOrdered By: Sherice Fernandez on 01-06-2025 CO2 [Moles/Vol] 24.3 mmol/L 21.0-32.0 [facility] Chloride assayOrdered By: Melva Fernandez on 01-06-2025 Chloride [Moles/Vol] 105 mmol/L 98-108 [facility] Comprehensive Metabolic Prof ilon 01-06-2025 Albumin [Mass/Vol] 3.2 g/dL Low 3.4-4.8 [facility] Comment on above: Performed By: #### L 506.0400, L100.0100, L501.9520, L501.5200, L501.2300, L500.4050 ####[facility] [address] [place], [address] Albumin/Globulin [Mass ratio] 0.8 {ratio} Low 0.9-2.4 [facility] Comment on above: Performed By: #### L 506.0400, L100.0100, L501.9520, L501.5200, L501.2300, L500.4050 ####[facility] [address] [place], [address] ALK PHOS 269 U/L High 35-104 [facility] Comment on above: Performed By: #### L 506.0400, L100.0100, L501.9520, L501.5200, L501.2300, L500.4050 ####[facility] [address] [place], [address] ALT [Catalytic activity/Vol] 28 U/L Normal <=34 [facility] Comment on above: Performed By: #### L 506.0400, L100.0100, L501.9520, L501.5200, L501.2300, L500.4050 ####[facility] [address] [place], [address] AST [Catalytic activity/Vol] 77 U/L High <=31 [facility] Comment on above: Performed By: #### L 506.0400, L100.0100, L501.9520, L501.5200, L501.2300, L500.4050 ####[facility] [address] [place], [address] Bilirubin [Mass/Vol] 0.62 mg/dL Normal 0.00-1.30 [facility] Comment on above: Performed By: #### L 506.0400, L100.0100, L501.9520, L501.5200, L501.2300, L500.4050 ####[facility] [address] [place], [address] BUN/CRE 7.9 RATIO Low 10-20 [facility] Comment on above: Performed By: #### L 506.0400, L100.0100, L501.9520, L501.5200, L501.2300, L500.4050 ####[facility] [address] [place], [address] Calcium [Mass/Vol] 8.8 mg/dL Normal 7.6-11.0 [facility] Comment on above: Performed By: #### L 506.0400, L100.0100, L501.9520, L501.5200, L501.2300, L500.4050 ####[facility] [address] [place], [address] Chloride [Moles/Vol] 105 mmol/L Normal 98-108 [facility] Comment on above: Performed By: #### L 506.0400, L100.0100, L501.9520, L501.5200, L501.2300, L500.4050 ####[facility] [address] [place], [address] CO2 [Moles/Vol] 24.3 mmol/L Normal 21.0-32.0 [facility] Comment on above: Performed By: #### L 506.0400, L100.0100, L501.9520, L501.5200, L501.2300, L500.4050 ####[facility] [address] [place], [address] Creatinine [Mass/Vol] 0.77 mg/dL Normal 0.70-1.20 [facility] Comment on above: Performed By: #### L 506.0400, L100.0100, L501.9520, L501.5200, L501.2300, L500.4050 ####[facility] [address] [place], [address] ECRCL 54.13 ml/min Normal 50-250 [facility] Comment on above: Performed By: #### L 506.0400, L100.0100, L501.9520, L501.5200, L501.2300, L500.4050 ####[facility] [address] [place], [address] GAP 13 Normal 5-15 [facility] Comment on above: Performed By: #### L 506.0400, L100.0100, L501.9520, L501.5200, L501.2300, L500.4050 ####[facility] [address] [place], [address] GFR/1.73 sq M.predicted among non-blacks MDRD (S/P/Bld) [Vol rate/Area] 83 mL/min/{1.73_m2} Normal >60 [facility] Comment on above: Result Comment: mL/m in/1.73m2 CKD-EPI Creatinine Equation (2020) Performed By: #### L 506.0400, L100.0100, L501.9520, L501.5200, L501.2300, L500.4050 ####[facility] [address] [place], [address] Globulin (S) [Mass/Vol] 4.0 g/dL Normal 2.2-4.2 [facility] Comment on above: Performed By: #### L 506.0400, L100.0100, L501.9520, L501.5200, L501.2300, L500.4050 ####[facility] [address] [place], [address] Glucose [Mass/Vol] 126 mg/dL High 70-99 [facility] Comment on above: Performed By: #### L 506.0400, L100.0100, L501.9520, L501.5200, L501.2300, L500.4050 ####[facility] [address] [place], [address] Potassium [Moles/Vol] 4.4 mmol/L Normal 3.3-5.1 [facility] Comment on above: Performed By: #### L 506.0400, L100.0100, L501.9520, L501.5200, L501.2300, L500.4050 ####[facility] [address] [place], [address] Sodium [Moles/Vol] 142 mmol/L Normal 133-145 [facility] Comment on above: Performed By: #### L 506.0400, L100.0100, L501.9520, L501.5200, L501.2300, L500.4050 ####[facility] [address] [place], [place], [address] T PROT 7.2 g/dL Normal 5.9-8.4 [facility] Comment on above: Performed By: #### L 506.0400, L100.0100, L501.9520, L501.5200, L501.2300, L500.4050 ####[facility] [address] [place], [place], [id number] Urea nitrogen [Mass/Vol] 6 mg/dL Normal 4-19 [facility] Comment on above: Performed By: #### L 506.0400, L100.0100, L501.9520, L501.5200, L501.2300, L500.4050 ####[facility] [address] [place], [place], [id number] Eosinophil percentageOrdered By: Sherice Fernandez on 01-06-2025 Eosinophils/100 WBC (Bld) 0.3 % 0-5 [facility] Erythrocyte distribution wid th (RBC) [Ratio]Ordered By: Sherice Fernandez on 01-06-2025 Erythrocyte distribution width (RBC) [Entitic vol] 59.6 fL High 35.1-43.9 [facility] Erythrocyte distribution wid th ratioOrdered By: [facility] 01-06-2025 Erythrocyte distribution width (RBC) [Ratio] 18.2 % High 11.6-14.6 [facility] Estimation of creatinine lubna aranceOrdered By: Sherice Fernandez on 01-06-2025 Estimated Creatinine Clearance Calc 54.13 ml/min 50-250 [facility] GFR/1.73 sq M.predicted mary g non-blacks MDRD (S/P/Bld) [Vol rate/Area]Ordered By: Sherice Fernandez on 01-06-2025 Estimated GFR (MDRD) Non-Af Amer 83 >60 [facility] Comment on above: mL/min/1.73m2 CKD-EP I Creatinine Equation (2020) Hematocrit Auto (Bld) [Volum e fraction]Ordered By: Sherice Fernandez on 01-06-2025 Hematocrit (Bld) [Volume fraction] 33.1 % Low 37-47 [facility] Hemoglobin measurementOrdere d By: Sherice Fernandez on 01-06-2025 Hemoglobin (Bld) [Mass/Vol] 10.8 g/dL Low 12.0-15.0 [facility] Immature granulocytes/100 WB C Auto (Bld)Ordered By: Sherice Fernandez on 01-06-2025 Immature granulocytes/100 WBC (Bld) 1.100 % High 0.0-0.9 [facility] Comment on above: IG% - Immature Granu locytes (promyelocytes, myelocytes and metamyelocytes) > 1% indicates that a LEFT SHIFT is Present. Laboratory - Chemistry and C hemistry - challengeOrdered By: Sherice Fernandez on 01-06-2025 AST [Catalytic activity/Vol] 77 U/L High <32 [facility] Lymphocytes Auto (Unsp spec) [#/Vol][facility] 01-[facility]25 Lymphocytes (Bld) [#/Vol] 1.05 10*3/uL 0.83-4.51 [facility] Lymphocytes/100 WBC Auto (Un sp spec)Ordered By: Sherice Fernandez on 01-06-2025 Lymphocytes/100 WBC (Bld) 11.7 % Low 19-41 [facility] MCV (mean corpuscular volume ) determinationOrdered By: [facility] on 01-06-2025 MCV (RBC) [Entitic vol] 89.9 fL 81-99 [facility] Magnesiumon 01-06-2025 Magnesium [Mass/Vol] 1.5 mg/dL Normal 1.5-2.2 [facility] Comment on above: Performed By: #### L 506.0400, L100.0100, L501.9520, L501.5200, L501.2300, L500.4050 ####[facility] [address] [place], [place], [id number] Magnesium (Unsp spec) [Mass/ Vol]Ordered By: Sherice Fernandez on 01-06-2025 Magnesium [Mass/Vol] 1.5 mg/dL 1.5-2.2 [facility] Manual differential comment Scott (Bld) [Interp]Ordered By: Sherice Fernandez on 01-06-2025 Differential Comment SCANNED [facility] Comment on above: MONOCYTOSIS NOTED Mean corpuscular hemoglobin (MCH) determinationOrdered By: [facility] Jim on 01-06-2025 MCH (RBC) [Entitic mass] 29.3 pg 27.0-32.0 [facility] Mean corpuscular hemoglobin concentration (MCHC) determinationOrdered By: [facility] Jim on 01-06-2025 MCHC (RBC) [Mass/Vol] 32.6 g/dL 32-36 [facility] Mean platelet volume determi nationOrdered By: [facility] Fern[facility] on 01-06-2025 Platelet mean volume (Bld) [Entitic vol] 9.9 fL 6.2-12.0 [facility] Monocyte percentageOrdered B y: Sherice Fernandez on 01-06-2025 Monocytes/100 WBC (Bld) 20.0 % High 0-10 [facility] Neutrophil percentageOrdered By: [facility] 01-[facility] Neutrophils/100 WBC (Bld) 66.2 % 47-70 [facility] Nucleated red blood cell per centageOrdered By: [facility] on 01-06-2025 Nucleated RBC/100 WBC (Bld) [Ratio] 0 % 0-5 [facility] Oncology Visit Reporton 12-17 Oncology Visit Report Normal [facility] Phosphoruson 01-06-2025 Phosphate [Mass/Vol] 3.9 mg/dL Normal 2.7-4.5 [facility] Comment on above: Performed By: #### L 506.0400, L100.0100, L501.9520, L501.5200, L501.2300, L500.4050 ####[facility] [address] [place], [address] Platelet countOrdered By: Melva Fernandez on 01-06-2025 Platelets (Bld) [#/Vol] 483 10*3/uL High 150-450 [facility] Potassium (Unsp spec) [Mass/ Vol]Ordered By: Sherice Fernandez on 01-06-2025 Potassium [Moles/Vol] 4.4 mmol/L 3.3-5.1 [facility] RBC Auto (Bld) [#/Vol]Ordere d By: Sherice Fernandez on 01-06-2025 RBC (Bld) [#/Vol] 3.68 10*6/uL Low 4.2-5.4 [facility] Serum creatinine measurement (mass/volume)Ordered By: Sherice Fernandez on 01-06-2025 Creatinine [Mass/Vol] 0.77 mg/dL 0.70-1.20 [facility] Serum globulin measurementOr dered By: Sherice Fernandez on 01-06-2025 Globulin (S) [Mass/Vol] 4.0 g/dL 2.2-4.2 [facility] Serum glucose measurement (m ass/volume)Ordered By: Sherice Fernandez on 01-06-2025 Glucose [Mass/Vol] 126 mg/dL High 70-99 [facility] Serum or plasma alanine encarnacion otransferase (ALT) measurementOrdered By: Sherice Fernandez on 01-06-2025 ALT [Catalytic activity/Vol] 28 U/L <35 [facility] Serum or plasma albumin jayro urement (mass/volume)Ordered By: Sherice Fernandez on 01-06-2025 Albumin [Mass/Vol] 3.2 g/dL Low 3.4-4.8 [facility] Serum or plasma albumin/glob ulin mass ratioOrdered By: Sherice Fernandez on 01-06-2025 Albumin/Globulin [Mass ratio] 0.8 {ratio} Low 0.9-2.4 [facility] Serum or plasma alkaline lukas sphatase measurementOrdered By: Sherice Fernandez on 01-06-2025 ALP [Catalytic activity/Vol] 269 U/L High 35-104 [facility] Serum or plasma calcium jayro urement (mass/volume)Ordered By: Sherice Fernandez on 01-06-2025 Calcium [Mass/Vol] 8.8 mg/dL 7.6-11.0 [facility] Serum or plasma urea nitroge n measurement (mass/volume)Ordered By: Sherice Fernandez on 01-06-2025 Urea nitrogen [Mass/Vol] 6 mg/dL 4-19 [facility] Serum phosphorus measurement Ordered By: Sherice Fernandez on 01-06-2025 Phosphorus Level 3.9 mg/dL 2.7-4.5 [facility] Sodium levelOrdered By: Carmella Fernandez on 01-06-2025 Sodium [Moles/Vol] 142 mmol/L 133-145 [facility] T4 Free Directon 01-06-2025 T4 FREE DIRECT 1.20 ng/dL Normal 0.76-1.46 [facility] Comment on above: Performed By: #### L 506.0400, L100.0100, L501.9520, L501.5200, L501.2300, L500.4050 ####[facility] [address] [place], [address] T4 freeOrdered By: Sherice burciaga on 01-06-2025 Free T4 [Mass/Vol] 1.20 ng/dL 0.76-1.46 [facility] TSH DL <= 0.005 mIU/L QnOrde red By: Sherice Fernandez on 01-06-2025 Thyroid Stimulating Hormone (TSH) 1.820 uIU/mL 0.300-4.200 [facility] Thyroid Stim Hormone (TSH)on 01-06-2025 TSH 1.820 uIU/mL Normal 0.300-4.200 [facility] Comment on above: Performed By: #### L 506.0400, L100.0100, L501.9520, L501.5200, L501.2300, L500.4050 ####[facility] [address] [place], [place], [id number] Total proteinOrdered By: Nain canseco Alyssa on 01-06-2025 Protein [Mass/Vol] 7.2 g/dL 5.9-8.4 [facility] White blood cell (WBC) count Ordered By: Sherice Jim on 01-06-2025 WBC (Bld) [#/Vol] 9.0 10*3/uL 4.4-11.0 [facility] CBC W/Diff, Automatedon 12-16 PATH REV N/A Normal [facility] Comment on above: Result Comment: AMENDED REPORT 12/30/24 3406 PATH REV previously reported as: January Performed By: #### L 500.4050, L100.0100 ####[facility] [address] [place], [address] Blood band neutrophil count as percentage of total leukocytesOrdered By: Shardaarslan TerrellAudie on 12-29-2024 Band form neutrophils/100 WBC (Bld) 11 % High 0-5 [facility] Blood lymphocytes/100 leukoc ytesOrdered By: Sharda Audie on 12-29-2024 Lymphocytes/100 WBC (Bld) 12 % Low 19-41 [facility] Blood metamyelocytes/100 isa kocytesOrdered By: Sharda Audie on 12-29-2024 Metamyelocytes/100 WBC (Bld) 3 % High 0-1 [facility] Blood monocytes/100 leukocyt esOrdered By: Sharda Audie on 12-29-2024 Monocytes/100 WBC (Bld) 16 % High 0-10 [facility] Blood segmented neutrophils/ 100 leukocytesOrdered By: Sharda Audie on 12-29-2024 Segmented neutrophils/100 WBC (Bld) 57 % 47-70 [facility] Cells counted Molgen (Bld/Ti ss) [#]Ordered By: Shardaarslan TerrellAudie on 12-29-2024 Differential Total Cells Counted 100 MANUAL DIFF [facility] Comprehensive Metabolic Prof ilon 12-29-2024 Albumin [Mass/Vol] 3.3 g/dL Low 3.4-4.8 [facility] Comment on above: Performed By: #### L 500.4050, L100.0100 ####[facility] [address] [place], [address] Albumin/Globulin [Mass ratio] 1.0 {ratio} Normal 0.9-2.4 [facility] Comment on above: Performed By: #### L 500.4050, L100.0100 ####[facility] [address] [place], [address] ALK PHOS 418 U/L High 35-104 [facility] Comment on above: Performed By: #### L 500.4050, L100.0100 ####[facility] [address] [place], [address] ALT [Catalytic activity/Vol] 44 U/L High <=34 [facility] Comment on above: Performed By: #### L 500.4050, L100.0100 ####[facility] [address] [place], [address] AST [Catalytic activity/Vol] 98 U/L High <=31 [facility] Comment on above: Performed By: #### L 500.4050, L100.0100 ####[facility] [address] [place], [address] Bilirubin [Mass/Vol] 0.65 mg/dL Normal 0.00-1.30 [facility] Comment on above: Performed By: #### L 500.4050, L100.0100 ####[facility] [address] [place], [address] BUN/CRE 11.3 RATIO Normal 10-20 [facility] Comment on above: Performed By: #### L 500.4050, L100.0100 ####[facility] [address] [place], [address] Calcium [Mass/Vol] 8.9 mg/dL Normal 7.6-11.0 [facility] Comment on above: Performed By: #### L 500.4050, L100.0100 ####[facility] [address] [place], [address] Chloride [Moles/Vol] 101 mmol/L Normal 98-108 [facility] Comment on above: Performed By: #### L 500.4050, L100.0100 ####[facility] [address] [place], [address] CO2 [Moles/Vol] 24.3 mmol/L Normal 21.0-32.0 [facility] Comment on above: Performed By: #### L 500.4050, L100.0100 ####[facility] [address] [place], [address] Creatinine [Mass/Vol] 0.75 mg/dL Normal 0.70-1.20 [facility] Comment on above: Performed By: #### L 500.4050, L100.0100 ####[facility] [address] [place], [address] ECRCL 59.65 ml/min Normal 50-250 [facility] Comment on above: Performed By: #### L 500.4050, L100.0100 ####[facility] [address] [place], [address] GAP 12 Normal 5-15 [facility] Comment on above: Performed By: #### L 500.4050, L100.0100 ####[facility] [address] [place], [address] GFR/1.73 sq M.predicted among non-blacks MDRD (S/P/Bld) [Vol rate/Area] 86 mL/min/{1.73_m2} Normal >60 [facility] Comment on above: Result Comment: mL/m in/1.73m2 CKD-EPI Creatinine Equation (2020) Performed By: #### L 500.4050, L100.0100 ####[facility] [address] [place], [address] Globulin (S) [Mass/Vol] 3.2 g/dL Normal 2.2-4.2 [facility] Comment on above: Performed By: #### L 500.4050, L100.0100 ####[facility] [address] [place], [address] Glucose [Mass/Vol] 168 mg/dL High 70-99 [facility] Comment on above: Performed By: #### L 500.4050, L100.0100 ####[facility] [address] [place], [address] Potassium [Moles/Vol] 4.2 mmol/L Normal 3.3-5.1 [facility] Comment on above: Performed By: #### L 500.4050, L100.0100 ####[facility] [address] [place], [address] Sodium [Moles/Vol] 137 mmol/L Normal 133-145 [facility] Comment on above: Performed By: #### L 500.4050, L100.0100 ####[facility] [address] [place], [address] T PROT 6.5 g/dL Normal 5.9-8.4 [facility] Comment on above: Performed By: #### L 500.4050, L100.0100 ####[facility] [address] [place], [address] Urea nitrogen [Mass/Vol] 8 mg/dL Normal 4-19 [facility] Comment on above: Performed By: #### L 500.4050, L100.0100 ####[facility] [address] [place], [address] Myelocyte %Ordered By: Sharda Bronson on 12-29-2024 Myelocytes/100 WBC (Bld) 1 % High 0-0 [facility] Oncology Visit Reporton 12-16 Oncology Visit Report Normal [facility] Pathologist review Scott (Unsp spec) [Interp]Ordered By: Sharda Bronson on 12-29-2024 Differential Pathologist's Review N/A [facility] Comment on above: Previous reported re sult: January anastasia Edited by: HARDIK on 12/30/24:1406 AMENDED REPORT 12/30/24 1406 PATH REV previously reported as: January anastasia Platelet estimateOrdered By: Sharda Bronson on 12-29-2024 Platelets LM Ql (Bld) MOD DEC ADEQ [facility] Platelets LM Ql (Bld)Ordered By: Sharda Bronson on 12-29-2024 Platelet Estimate MOD DEC [facility] Review by pathologistOrdered By: Sharda Bronson on 12-29-2024 Pathologist review Scott (Unsp spec) [Interp] N/A [facility] Comment on above: Previous reported re sult: Marah oconnor Edited by: HARDIK on 12/30/24:1406 AMENDED REPORT 12/30/24 1406 PATH REV previously reported as: Marah oconnor Segmented neutrophils/100 WB C (Bld)Ordered By: Sharda Bronson on 12-29-2024 Neutrophils/100 WBC (Bld) 57 % 47-70 [facility] Total cell countOrdered By: Sharda Bronson on 12-29-2024 Cells counted Molgen (Bld/Tiss) [#] 100 MANUAL DIFF [facility] Surgery Visit Reporton 12-22 Surgery Visit Report Normal [facility] CBC W/Diff, Automatedon PATH REV N/A Normal [facility] Comment on above: Result Comment: AMENDED REPORT 12/21/24 1428 PATH REV previously reported as: Marah oconnor Performed By: #### L 501.2300, L500.4050, L501.9520, L501.5200, L506.0400, L100.0100 ####[facility] [address] [place], [address] CBC W/Diff, Automatedon 04-0 Absolute Neut Normal 2.0-7.7 [facility] Comment on above: Result Comment: NO S PECIMENS COLLECTED. Performed By: #### L 500.4050, L100.0100 ####[facility] [address] [place], [address] HCT Normal 37-47 [facility] Comment on above: Result Comment: NO S PECIMENS COLLECTED. Performed By: #### L 500.4050, L100.0100 ####[facility] [address] [place], [address] HGB Normal 12.0-15.0 [facility] Comment on above: Result Comment: NO S PECIMENS COLLECTED. Performed By: #### L 500.4050, L100.0100 ####[facility] [address] [place], [address] MCH Normal 27.0-32.0 [facility] Comment on above: Result Comment: NO S PECIMENS COLLECTED. Performed By: #### L 500.4050, L100.0100 ####[facility] [address] [place], [address] MCHC Normal 32-36 [facility] Comment on above: Result Comment: NO S PECIMENS COLLECTED. Performed By: #### L 500.4050, L100.0100 ####[facility] [address] [place], [address] MCV Normal 81-99 [facility] Comment on above: Result Comment: NO S PECIMENS COLLECTED. Performed By: #### L 500.4050, L100.0100 ####[facility] [address] [place], [address] NEUT% Normal 47-70 [facility] Comment on above: Result Comment: NO S PECIMENS COLLECTED. Performed By: #### L 500.4050, L100.0100 ####[facility] [address] [place], [address] PLT Normal 150-450 [facility] Comment on above: Result Comment: NO S PECIMENS COLLECTED. Performed By: #### L 500.4050, L100.0100 ####[facility] [address] [place], [address] RBC Normal 4.2-5.4 [facility] Comment on above: Result Comment: NO S PECIMENS COLLECTED. Performed By: #### L 500.4050, L100.0100 ####[facility] [address] [place], [address] RDW CV Normal 11.6-14.6 [facility] Comment on above: Result Comment: NO S PECIMENS COLLECTED. Performed By: #### L 500.4050, L100.0100 ####[facility] [address] [place], [address] RDW SD Normal 35.1-43.9 [facility] Comment on above: Result Comment: NO S PECIMENS COLLECTED. Performed By: #### L 500.4050, L100.0100 ####[facility] [address] [place], [address] WBC Normal 4.4-11.0 [facility] Comment on above: Result Comment: NO S PECIMENS COLLECTED. Performed By: #### L 500.4050, L100.0100 ####[facility] [address] [place], [address] Comprehensive Metabolic Prof ilon 12-17-2024 ALB Normal 3.4-4.8 [facility] Comment on above: Result Comment: NO S PECIMENS COLLECTED Performed By: #### L 500.4050, L100.0100 ####[facility] [address] [place], [address] ALK PHOS Normal 35-104 [facility] Comment on above: Result Comment: NO S PECIMENS COLLECTED Performed By: #### L 500.4050, L100.0100 ####[facility] [address] [place], [address] ALT Normal <=34 [facility] Comment on above: Result Comment: NO S PECIMENS COLLECTED Performed By: #### L 500.4050, L100.0100 ####[facility] [address] [place], [address] AST Normal <=31 [facility] Comment on above: Result Comment: NO S PECIMENS COLLECTED Performed By: #### L 500.4050, L100.0100 ####[facility] [address] [place], [address] BUN Normal 4-19 [facility] Comment on above: Result Comment: NO S PECIMENS COLLECTED Performed By: #### L 500.4050, L100.0100 ####[facility] [address] [place], [address] BUN/CRE Normal 10-20 [facility] Comment on above: Result Comment: NO S PECIMENS COLLECTED Performed By: #### L 500.4050, L100.0100 ####[facility] [address] [place], [address] Calcium Normal 7.6-11.0 [facility] Comment on above: Result Comment: NO S PECIMENS COLLECTED Performed By: #### L 500.4050, L100.0100 ####[facility] [address] [place], [address] CL Normal 98-108 [facility] Comment on above: Result Comment: NO S PECIMENS COLLECTED Performed By: #### L 500.4050, L100.0100 ####[facility] [address] [place], [address] CO2 Normal 21.0-32.0 [facility] Comment on above: Result Comment: NO S PECIMENS COLLECTED Performed By: #### L 500.4050, L100.0100 ####[facility] [address] [place], [address] CREAT,SERUM Normal 0.70-1.20 [facility] Comment on above: Result Comment: NO S PECIMENS COLLECTED Performed By: #### L 500.4050, L100.0100 ####[facility] [address] [place], [address] eGFR Normal >60 [facility] Comment on above: Result Comment: NO S PECIMENS COLLECTED Performed By: #### L 500.4050, L100.0100 ####[facility] [address] [place], [address] GAP Normal 5-15 [facility] Comment on above: Result Comment: NO S PECIMENS COLLECTED Performed By: #### L 500.4050, L100.0100 ####[facility] [address] [place], [address] GLU Normal 70-99 [facility] Comment on above: Result Comment: NO S PECIMENS COLLECTED Performed By: #### L 500.4050, L100.0100 ####[facility] [address] [place], [address] Potassium Normal 3.3-5.1 [facility] Comment on above: Result Comment: NO S PECIMENS COLLECTED Performed By: #### L 500.4050, L100.0100 ####[facility] [address] [place], [address] T BILI Normal 0.00-1.30 [facility] Comment on above: Result Comment: NO S PECIMENS COLLECTED Performed By: #### L 500.4050, L100.0100 ####[facility] [address] [place], [address] T PROT Normal 5.9-8.4 [facility] Comment on above: Result Comment: NO S PECIMENS COLLECTED Performed By: #### L 500.4050, L100.0100 ####[facility] [address] [place], [address] Comprehensive Metabolic Profil Normal 133-145 [facility] Comment on above: Result Comment: NO S PECIMENS COLLECTED Performed By: #### L 500.4050, L100.0100 ####[facility] [address] [place], [address] Comprehensive Metabolic Prof ilon 12-16-2024 Albumin [Mass/Vol] 3.2 g/dL Low 3.4-4.8 [facility] Comment on above: Performed By: #### L 501.2300, L500.4050, L501.9520, L501.5200, L506.0400, L100.0100 ####[facility] [address] [place], [address] Albumin/Globulin [Mass ratio] 1.0 {ratio} Normal 0.9-2.4 [facility] Comment on above: Performed By: #### L 501.2300, L500.4050, L501.9520, L501.5200, L506.0400, L100.0100 ####[facility] [address] [place], [address] ALK PHOS 590 U/L High 35-104 [facility] Comment on above: Performed By: #### L 501.2300, L500.4050, L501.9520, L501.5200, L506.0400, L100.0100 ####[facility] [address] [place], [address] ALT [Catalytic activity/Vol] 47 U/L High <=34 [facility] Comment on above: Performed By: #### L 501.2300, L500.4050, L501.9520, L501.5200, L506.0400, L100.0100 ####[facility] [address] [place], [address] AST [Catalytic activity/Vol] 210 U/L High <=31 [facility] Comment on above: Performed By: #### L 501.2300, L500.4050, L501.9520, L501.5200, L506.0400, L100.0100 ####[facility] [address] [place], [address] Bilirubin [Mass/Vol] 1.24 mg/dL Normal 0.00-1.30 [facility] Comment on above: Performed By: #### L 501.2300, L500.4050, L501.9520, L501.5200, L506.0400, L100.0100 ####[facility] [address] [place], [address] BUN/CRE 7.8 RATIO Low 10-20 [facility] Comment on above: Performed By: #### L 501.2300, L500.4050, L501.9520, L501.5200, L506.0400, L100.0100 ####[facility] [address] [place], [address] Calcium [Mass/Vol] 8.8 mg/dL Normal 7.6-11.0 [facility] Comment on above: Performed By: #### L 501.2300, L500.4050, L501.9520, L501.5200, L506.0400, L100.0100 ####[facility] [address] [place], [address] Chloride [Moles/Vol] 104 mmol/L Normal 98-108 [facility] Comment on above: Performed By: #### L 501.2300, L500.4050, L501.9520, L501.5200, L506.0400, L100.0100 ####[facility] [address] [place], [address] CO2 [Moles/Vol] 21.3 mmol/L Normal 21.0-32.0 [facility] Comment on above: Performed By: #### L 501.2300, L500.4050, L501.9520, L501.5200, L506.0400, L100.0100 ####[facility] [address] [place], [address] Creatinine [Mass/Vol] 0.79 mg/dL Normal 0.70-1.20 [facility] Comment on above: Performed By: #### L 501.2300, L500.4050, L501.9520, L501.5200, L506.0400, L100.0100 ####[facility] [address] [place], [address] ECRCL 60.80 ml/min Normal 50-250 [facility] Comment on above: Performed By: #### L 501.2300, L500.4050, L501.9520, L501.5200, L506.0400, L100.0100 ####[facility] [address] [place], [address] GAP 14 Normal 5-15 [facility] Comment on above: Performed By: #### L 501.2300, L500.4050, L501.9520, L501.5200, L506.0400, L100.0100 ####[facility] [address] [place], [address] GFR/1.73 sq M.predicted among non-blacks MDRD (S/P/Bld) [Vol rate/Area] 81 mL/min/{1.73_m2} Normal >60 [facility] Comment on above: Result Comment: mL/m in/1.73m2 CKD-EPI Creatinine Equation (2020) Performed By: #### L 501.2300, L500.4050, L501.9520, L501.5200, L506.0400, L100.0100 ####[facility] [address] [place], [address] Globulin (S) [Mass/Vol] 3.2 g/dL Normal 2.2-4.2 [facility] Comment on above: Performed By: #### L 501.2300, L500.4050, L501.9520, L501.5200, L506.0400, L100.0100 ####[facility] [address] [place], [address] Glucose [Mass/Vol] 162 mg/dL High 70-99 [facility] Comment on above: Performed By: #### L 501.2300, L500.4050, L501.9520, L501.5200, L506.0400, L100.0100 ####[facility] [address] [place], [address] Potassium [Moles/Vol] 3.9 mmol/L Normal 3.3-5.1 [facility] Comment on above: Performed By: #### L 501.2300, L500.4050, L501.9520, L501.5200, L506.0400, L100.0100 ####[facility] [address] [place], [address] Sodium [Moles/Vol] 139 mmol/L Normal 133-145 [facility] Comment on above: Performed By: #### L 501.2300, L500.4050, L501.9520, L501.5200, L506.0400, L100.0100 ####[facility] [address] [place], [address] T PROT 6.4 g/dL Normal 5.9-8.4 [facility] Comment on above: Performed By: #### L 501.2300, L500.4050, L501.9520, L501.5200, L506.0400, L100.0100 ####[facility] [address] [place], [place], [id number] Urea nitrogen [Mass/Vol] 6 mg/dL Normal 4-19 [facility] Comment on above: Performed By: #### L 501.2300, L500.4050, L501.9520, L501.5200, L506.0400, L100.0100 ####[facility] [address] [place], [place], [address] Magnesiumon 12-16-2024 Magnesium [Mass/Vol] 1.5 mg/dL Normal 1.5-2.2 [facility] Comment on above: Performed By: #### L 501.2300, L500.4050, L501.9520, L501.5200, L506.0400, L100.0100 ####[facility] [address] [place], [place], [address] Oncology Visit Reporton 040 Oncology Visit Report Normal [facility] Phosphoruson 12-16-2024 Phosphate [Mass/Vol] 3.1 mg/dL Normal 2.7-4.5 [facility] Comment on above: Performed By: #### L 501.2300, L500.4050, L501.9520, L501.5200, L506.0400, L100.0100 ####[facility] [address] [place], [address] T4 Free Directon 12-16-2024 T4 FREE DIRECT 1.40 ng/dL Normal 0.76-1.46 [facility] Comment on above: Performed By: #### L 501.2300, L500.4050, L501.9520, L501.5200, L506.0400, L100.0100 ####[facility] [address] [place], [address] Thyroid Stim Hormone (TSH)on 12-16-2024 TSH 5.070 uIU/mL High 0.300-4.200 [facility] Comment on above: Performed By: #### L 501.2300, L500.4050, L501.9520, L501.5200, L506.0400, L100.0100 ####[facility] [address] [place], [address] Chest 1 View (Portable)on Chest 1 View (Portable) Normal [facility] Discharge Instructionon 11-16 Discharge Instruction Normal [facility] MR/POSTOP.ANEon 12-12-2024 MR/POSTOP.ANE Normal [facility] MR/OVAAMCVW5nu 12-12-2024 MR/POSTOPAN2 Normal [facility] Operative Reporton Operative Report Normal [facility] MR/PAT.ANEon 12-11-2024 MR/PAT.ANE Normal [facility] Surgery Visit Reporton 12-10 Surgery Visit Report Normal [facility] Absolute neutrophil countOrd ered By: Sherice Fernandez on 12-09-2024 Neutrophils (Bld) [#/Vol] 6.7 10*3/uL 2.0-7.7 [facility] Anion gap in Serum or Plasma Ordered By: Sherice Fernandez on 12-09-2024 Anion gap [Moles/Vol] 14 mmol/L 5-15 [facility] BUN/creatinine ratioOrdered By: Sherice Fernandez on 12-09-2024 Urea nitrogen/Creatinine [Mass ratio] 7.9 mg/mg Low 10-20 [facility] Basophil percentageOrdered B y: Sherice Fernandez on 12-09-2024 Basophils/100 WBC (Bld) 0.9 % 0-1 [facility] Bilirubin, totalOrdered By: Sherice Fernandez on 12-09-2024 Bilirubin [Mass/Vol] 1.84 mg/dL High 0.00-1.30 [facility] CBC W/Diff, Automatedon 11-16 PLT EST MOD DEC Normal ADEQ [facility] Comment on above: Performed By: #### L 501.2300, L100.0100, L501.5200 ####[facility] [address] [place], [address] SMEAR COMMENT SCANNED Normal [facility] Comment on above: Performed By: #### L 501.2300, L100.0100, L501.5200 ####[facility] [address] [place], [address] Carbon dioxide, total [Moles /volume] in Central venous bloodOrdered By: Sherice Fernandez on 12-09-2024 CO2 [Moles/Vol] 22.3 mmol/L 21.0-32.0 [facility] Chloride assayOrdered By: Melva Fernandez on 12-09-2024 Chloride [Moles/Vol] 102 mmol/L 98-108 [facility] Comprehensive Metabolic Prof ilon 12-09-2024 Albumin [Mass/Vol] 3.3 g/dL Low 3.4-4.8 [facility] Comment on above: Performed By: #### L 500.4050 ####[facility] [address] [place], [address] Albumin/Globulin [Mass ratio] 1.2 {ratio} Normal 0.9-2.4 [facility] Comment on above: Performed By: #### L 500.4050 ####[facility] [address] [place], [address] ALK PHOS 685 U/L High 35-104 [facility] Comment on above: Performed By: #### L 500.4050 ####[facility] [address] [place], [address] ALT [Catalytic activity/Vol] 88 U/L High <=34 [facility] Comment on above: Performed By: #### L 500.4050 ####[facility] [address] [place], [address] AST [Catalytic activity/Vol] 248 U/L High <=31 [facility] Comment on above: Performed By: #### L 500.4050 ####[facility] [address] [place], [address] Bilirubin [Mass/Vol] 1.84 mg/dL High 0.00-1.30 [facility] Comment on above: Performed By: #### L 500.4050 ####[facility] [address] [place], [address] BUN/CRE 7.9 RATIO Low 10-20 [facility] Comment on above: Performed By: #### L 500.4050 ####[facility] [address] [place], [address] Calcium [Mass/Vol] 8.9 mg/dL Normal 7.6-11.0 [facility] Comment on above: Performed By: #### L 500.4050 ####[facility] [address] [place], [address] Chloride [Moles/Vol] 102 mmol/L Normal 98-108 [facility] Comment on above: Performed By: #### L 500.4050 ####[facility] [address] [place], [address] CO2 [Moles/Vol] 22.3 mmol/L Normal 21.0-32.0 [facility] Comment on above: Performed By: #### L 500.4050 ####[facility] [address] [place], [address] Creatinine [Mass/Vol] 0.84 mg/dL Normal 0.70-1.20 [facility] Comment on above: Performed By: #### L 500.4050 ####[facility] [address] [place], [address] ECRCL 57.91 ml/min Normal 50-250 [facility] Comment on above: Performed By: #### L 500.4050 ####[facility] [address] [place], [address] GAP 14 Normal 5-15 [facility] Comment on above: Performed By: #### L 500.4050 ####[facility] [address] [place], [address] GFR/1.73 sq M.predicted among non-blacks MDRD (S/P/Bld) [Vol rate/Area] 75 mL/min/{1.73_m2} Normal >60 [facility] Comment on above: Result Comment: mL/m in/1.73m2 CKD-EPI Creatinine Equation (2020) Performed By: #### L 500.4050 ####[facility] [address] [place], [address] Globulin (S) [Mass/Vol] 2.9 g/dL Normal 2.2-4.2 [facility] Comment on above: Performed By: #### L 500.4050 ####[facility] [address] [place], [address] Glucose [Mass/Vol] 134 mg/dL High 70-99 [facility] Comment on above: Performed By: #### L 500.4050 ####[facility] [address] [place], [address] Potassium [Moles/Vol] 4.4 mmol/L Normal 3.3-5.1 [facility] Comment on above: Performed By: #### L 500.4050 ####[facility] [address] [place], [address] Sodium [Moles/Vol] 138 mmol/L Normal 133-145 [facility] Comment on above: Performed By: #### L 500.4050 ####[facility] [address] [place], [place], [address] T PROT 6.2 g/dL Normal 5.9-8.4 [facility] Comment on above: Performed By: #### L 500.4050 ####[facility] [address] [place], [place], [address] Urea nitrogen [Mass/Vol] 7 mg/dL Normal 4-19 [facility] Comment on above: Performed By: #### L 500.4050 ####[facility] [address] [place], [place], [address] Eosinophil percentageOrdered By: Sherice Fernandez on 12-09-2024 Eosinophils/100 WBC (Bld) 0.1 % 0-5 [facility] Erythrocyte distribution wid th ratioOrdered By: Sherice Fernandez on 12-09-2024 Erythrocyte distribution width (RBC) [Ratio] 19.4 % High 11.6-14.6 [facility] Erythrocyte distribution wid th standard deviationOrdered By: Sherice Fernandez on 12-09-2024 Erythrocyte distribution width (RBC) [Entitic vol] 59.1 fL High 35.1-43.9 [facility] Estimation of creatinine lubna aranceOrdered By: Sherice Fernandez on 12-09-2024 Estimated Creatinine Clearance Calc 57.91 ml/min 50-250 [facility] GFR/1.73 sq M.predicted mary g non-blacks MDRD (S/P/Bld) [Vol rate/Area]Ordered By: Sherice Fernandez on 12-09-2024 Estimated GFR (MDRD) Non-Af Amer 75 >60 [facility] Comment on above: mL/min/1.73m2 CKD-EP I Creatinine Equation (2020) Hematocrit Auto (Bld) [Volum e fraction]Ordered By: Sherice Fernandez on 12-09-2024 Hematocrit (Bld) [Volume fraction] 34.2 % Low 37-47 [facility] Hemoglobin measurementOrdere d By: Sherice Fernandez on 12-09-2024 Hemoglobin (Bld) [Mass/Vol] 11.4 g/dL Low 12.0-15.0 [facility] Immature granulocytes/100 WB C Auto (Bld)Ordered By: Sherice Fernandez on 12-09-2024 Immature granulocytes/100 WBC (Bld) 3.400 % High 0.0-0.9 [facility] Comment on above: IG% - Immature Granu locytes (promyelocytes, myelocytes and metamyelocytes) > 1% indicates that a LEFT SHIFT is Present. Laboratory - Chemistry and C hemistry - challengeOrdered By: Sherice Fernandez on 12-09-2024 AST [Catalytic activity/Vol] 248 U/L High <32 [facility] Lymphocytes Auto (Unsp spec) [#/Vol]Ordered By: [facility] on 12-09-2024 Lymphocytes (Bld) [#/Vol] 1.01 10*3/uL 0.83-4.51 [facility] Lymphocytes/100 WBC Auto (Un sp spec)Ordered By: Sherice Fernandez on 12-09-2024 Lymphocytes/100 WBC (Bld) 11.0 % Low 19-41 [facility] MCV (mean corpuscular volume ) determinationOrdered By: Sherice Fernandez on 12-09-2024 MCV (RBC) [Entitic vol] 87.9 fL 81-99 [facility] Magnesiumon 12-09-2024 Magnesium [Mass/Vol] 1.4 mg/dL Low 1.5-2.2 [facility] Comment on above: Performed By: #### L 501.2300, L100.0100, L501.5200 ####[facility] [address] [facility] [place], [place], [address] Magnesium (Unsp spec) [Mass/ Vol]Ordered By: Sherice Fernandez on 12-09-2024 Magnesium [Mass/Vol] 1.4 mg/dL Low 1.5-2.2 [facility] Manual differential comment Scott (Bld) [Interp]Ordered By: Sherice Fernandez on 12-09-2024 Differential Comment SCANNED [facility] Mean corpuscular hemoglobin (MCH) determinationOrdered By: Sherice Fernandez on 12-09-2024 MCH (RBC) [Entitic mass] 29.3 pg 27.0-32.0 [facility] Mean corpuscular hemoglobin concentration (MCHC) determinationOrdered By: Sherice Fernandez on 12-09-2024 MCHC (RBC) [Mass/Vol] 33.3 g/dL 32-36 [facility] Mean platelet volume determi nationOrdered By: Sherice Fernandez on 12-09-2024 Platelet mean volume (Bld) [Entitic vol] 11.8 fL 6.2-12.0 [facility] Monocyte percentageOrdered B y: Sherice Fernandez on 12-09-2024 Monocytes/100 WBC (Bld) 12.3 % High 0-10 [facility] Neutrophil percentageOrdered By: [facility] on 12-09-2024 Neutrophils/100 WBC (Bld) 72.3 % High 47-70 [facility] Nucleated red blood cell per centageOrdered By: [facility] on 12-09-2024 Nucleated RBC/100 WBC (Bld) [Ratio] 0.2 % 0-5 [facility] Oncology Visit Reporton 11-16 Oncology Visit Report Normal [facility] Phosphoruson 12-09-2024 Phosphate [Mass/Vol] 3.0 mg/dL Normal 2.7-4.5 [facility] Comment on above: Performed By: #### L 501.2300, L100.0100, L501.5200 ####[facility] [address] [place], [address] Platelet countOrdered By: Melva Fernandez on 12-09-2024 Platelets (Bld) [#/Vol] 87 10*3/uL Low 150-450 [facility] Platelets LM Ql (Bld)Ordered By: Sherice Fernandez on 12-09-2024 Platelet Estimate MOD DEC ADEQ [facility] Potassium (Unsp spec) [Mass/ Vol]Ordered By: Sherice Fernandez on 12-09-2024 Potassium [Moles/Vol] 4.4 mmol/L 3.3-5.1 [facility] RBC Auto (Bld) [#/Vol]Ordere d By: Sherice Fernandez on 12-09-2024 RBC (Bld) [#/Vol] 3.89 10*6/uL Low 4.2-5.4 [facility] Serum creatinine measurement (mass/volume)Ordered By: Sherice Fernandez on 12-09-2024 Creatinine [Mass/Vol] 0.84 mg/dL 0.70-1.20 [facility] Serum globulin measurementOr dered By: Sherice Fernandez on 12-09-2024 Globulin (S) [Mass/Vol] 2.9 g/dL 2.2-4.2 [facility] Serum glucose measurement (m ass/volume)Ordered By: Sherice Fernandez on 12-09-2024 Glucose [Mass/Vol] 134 mg/dL High 70-99 [facility] Serum or plasma alanine encarnacion otransferase (ALT) measurementOrdered By: Sherice Fernandez on 12-09-2024 ALT [Catalytic activity/Vol] 88 U/L High <35 [facility] Serum or plasma albumin jayro urement (mass/volume)Ordered By: Sherice Fernandez on 12-09-2024 Albumin [Mass/Vol] 3.3 g/dL Low 3.4-4.8 [facility] Serum or plasma albumin/glob ulin mass ratioOrdered By: Sherice Fernandez on 12-09-2024 Albumin/Globulin [Mass ratio] 1.2 {ratio} 0.9-2.4 [facility] Serum or plasma alkaline lukas sphatase measurementOrdered By: Sherice Fernandez on 12-09-2024 ALP [Catalytic activity/Vol] 685 U/L High 35-104 [facility] Serum or plasma calcium jayro urement (mass/volume)Ordered By: Sherice Fernandez on 12-09-2024 Calcium [Mass/Vol] 8.9 mg/dL 7.6-11.0 [facility] Serum or plasma urea nitroge n measurement (mass/volume)Ordered By: Sherice Fernandez on 12-09-2024 Urea nitrogen [Mass/Vol] 7 mg/dL 4-19 [facility] Serum phosphorus measurement Ordered By: Sherice Fernandez on 12-09-2024 Phosphorus Level 3.0 mg/dL 2.7-4.5 [facility] Sodium levelOrdered By: Carmella campbell Jim on 12-09-2024 Sodium [Moles/Vol] 138 mmol/L 133-145 [facility] Total proteinOrdered By: Nain canseco Jim on 12-09-2024 Protein [Mass/Vol] 6.2 g/dL 5.9-8.4 [facility] White blood cell (WBC) count Ordered By: Sherice Fernandez on 12-09-2024 WBC (Bld) [#/Vol] 9.2 10*3/uL 4.4-11.0 [facility] Brain W/WO Contraston 2024 Brain W/WO Contrast Normal [facility] Magnetic resonance imaging r eportOrdered By: Dillon Mullen on 12-03-2024 Study report [facility] Imaging Services [address] [place] [address] Brain W/WO Contrast MR#: [id number] Acct: [id number] Name: BUSHRA RODRIGEZ Rep #: [id number] : 1955 F 69 From: Tasha Mullen MD PCP: Dr. Fabricio Lemos MD Status: REG CLI Study:Brain W/WO Contrast Date of Exam: 12/03/24 Exam# [id number] Ordering Dr: Sherice Fernandez MD PROCEDURE: BRAIN [...] 3. Additional description as above. Reading Location: [id number] CC: Dr. Fabricio Lemos MD; Dr. Sherice Fernandez MD ~ [employer]: Signed [facility] Basic Metabolic Profile (BMP )on 12-02-2024 BUN/CRE 20.6 RATIO High 10-20 [facility] Comment on above: Performed By: #### L 501.5200, L500.2500, L100.0100, L501.2300 ####[facility] [address] [place], [address] Calcium [Mass/Vol] 10.0 mg/dL Normal 7.6-11.0 [facility] Comment on above: Performed By: #### L 501.5200, L500.2500, L100.0100, L501.2300 ####[facility] [address] [place], [address] Chloride [Moles/Vol] 102 mmol/L Normal 98-108 [facility] Comment on above: Performed By: #### L 501.5200, L500.2500, L100.0100, L501.2300 ####[facility] [address] [place], [address] CO2 [Moles/Vol] 22.1 mmol/L Normal 21.0-32.0 [facility] Comment on above: Performed By: #### L 501.5200, L500.2500, L100.0100, L501.2300 ####[facility] [address] [place], [address] Creatinine [Mass/Vol] 0.95 mg/dL Normal 0.70-1.20 [facility] Comment on above: Performed By: #### L 501.5200, L500.2500, L100.0100, L501.2300 ####[facility] [address] [place], [address] ECRCL 52.76 ml/min Normal 50-250 [facility] Comment on above: Performed By: #### L 501.5200, L500.2500, L100.0100, L501.2300 ####[facility] [address] [place], [address] GAP 14 Normal 5-15 [facility] Comment on above: Performed By: #### L 501.5200, L500.2500, L100.0100, L501.2300 ####[facility] [address] [place], [address] GFR/1.73 sq M.predicted among non-blacks MDRD (S/P/Bld) [Vol rate/Area] 64 mL/min/{1.73_m2} Normal >60 [facility] Comment on above: Result Comment: mL/m in/1.73m2 CKD-EPI Creatinine Equation (2020) Performed By: #### L 501.5200, L500.2500, L100.0100, L501.2300 ####[facility] [address] [place], [address] Glucose [Mass/Vol] 167 mg/dL High 70-99 [facility] Comment on above: Performed By: #### L 501.5200, L500.2500, L100.0100, L501.2300 ####[facility] [address] [place], [address] Potassium [Moles/Vol] 4.3 mmol/L Normal 3.3-5.1 [facility] Comment on above: Performed By: #### L 501.5200, L500.2500, L100.0100, L501.2300 ####[facility] [address] [place], [address] Sodium [Moles/Vol] 138 mmol/L Normal 133-145 [facility] Comment on above: Performed By: #### L 501.5200, L500.2500, L100.0100, L501.2300 ####[facility] [address] [place], [address] Urea nitrogen [Mass/Vol] 20 mg/dL High 4-19 [facility] Comment on above: Performed By: #### L 501.5200, L500.2500, L100.0100, L501.2300 ####[facility] [address] [place], [address] Bilirubin directOrdered By: Sharda Bronson on 12-02-2024 Bilirubin.direct [Mass/Vol] 3.44 mg/dL High 0.00-0.30 [facility] Blood band neutrophil count as percentage of total leukocytesOrdered By: Sherice Fernandez on 12-02-2024 Band form neutrophils/100 WBC (Bld) 7 % High 0-5 [facility] Blood lymphocytes/100 leukoc ytesOrdered By: Sherice Fernandez on 12-02-2024 Lymphocytes/100 WBC (Bld) 10 % Low 19-41 [facility] Blood metamyelocytes/100 isa kocytesOrdered By: Sherice Fernandez on 12-02-2024 Metamyelocytes/100 WBC (Bld) 1 % 0-1 [facility] Blood monocytes/100 leukocyt esOrdered By: Sherice Fernandez on 12-02-2024 Monocytes/100 WBC (Bld) 3 % 0-10 [facility] Cells counted Molgen (Bld/Ti ss) [#]Ordered By: Sherice Fernandez on 12-02-2024 Differential Total Cells Counted 100 MANUAL DIFF [facility] Erythrocyte morphology asses smentOrdered By: Sherice Fernandez on 12-02-2024 RBC morphology finding Nom (Bld) NORM C+C NORMAL NORM C&C [facility] Liver Profileon 12-02-2024 Albumin [Mass/Vol] 3.5 g/dL Normal 3.4-4.8 [facility] Comment on above: Order Comment: ADD O N TG4 5 J Performed By: #### L 500.3400 ####[facility] [address] [place], [address] ALK PHOS 648 U/L High 35-104 [facility] Comment on above: Order Comment: ADD O N TG4 5 J Performed By: #### L 500.3400 ####[facility] [address] [place], [address] ALT [Catalytic activity/Vol] 157 U/L High <=34 [facility] Comment on above: Order Comment: ADD O N TG4 5 J Performed By: #### L 500.3400 ####[facility] [address] [place], [address] AST [Catalytic activity/Vol] 408 U/L High <=31 [facility] Comment on above: Order Comment: ADD O N TG4 5 J Performed By: #### L 500.3400 ####[facility] [address] [place], [address] Bilirubin [Mass/Vol] 4.41 mg/dL High 0.00-1.30 [facility] Comment on above: Order Comment: ADD O N TG4 5 J Performed By: #### L 500.3400 ####[facility] [address] [place], [address] Bilirubin.direct [Mass/Vol] 3.44 mg/dL High 0.00-0.30 [facility] Comment on above: Order Comment: ADD O N TG4 5 J Performed By: #### L 500.3400 ####[facility] [address] [place], [address] Globulin (S) [Mass/Vol] 3.0 g/dL Normal 2.2-4.2 [facility] Comment on above: Order Comment: ADD O N TG4 5 J Performed By: #### L 500.3400 ####[facility] [address] [place], [address] T PROT 6.5 g/dL Normal 5.9-8.4 [facility] Comment on above: Order Comment: ADD O N TG4 5 J Performed By: #### L 500.3400 ####[facility] [address] [place], [address] Magnesiumon 12-02-2024 Magnesium [Mass/Vol] 1.4 mg/dL Low 1.5-2.2 [facility] Comment on above: Performed By: #### L 501.5200, L500.2500, L100.0100, L501.2300 ####[facility] [address] [place], [address] Oncology Visit Reporton 11-15 Oncology Visit Report Normal [facility] Pathologist review Scott (Unsp spec) [Interp]Ordered By: Sherice Fernandez on 12-02-2024 Differential Pathologist's Review May anastasia [facility] Phosphoruson 12-02-2024 Phosphate [Mass/Vol] 3.0 mg/dL Normal 2.7-4.5 [facility] Comment on above: Performed By: #### L 501.5200, L500.2500, L100.0100, L501.2300 ####[facility] [address] [place], [address] RBC morphology finding Nom ( Bld)Ordered By: Sherice Fernandez on 12-02-2024 Red Blood Cell Morphology NORM C+C NORMAL NORM C&C [facility] Segmented neutrophils/100 WB C (Bld)Ordered By: Sherice Fernandez on 12-02-2024 Neutrophils/100 WBC (Bld) 79 % High 47-70 [facility] CBC W/Diff, Automatedon 11-15 Absolute Neut Normal 2.0-7.7 [facility] Comment on above: Result Comment: PER JESSE NURSE CBCD NOT NEEDED Performed By: #### L 100.0100, L500.4050 ####[facility] [address] [place], [address] HCT Normal 37-47 [facility] Comment on above: Result Comment: PER JESSE NURSE CBCD NOT NEEDED Performed By: #### L 100.0100, L500.4050 ####[facility] [address] [place], [address] HGB Normal 12.0-15.0 [facility] Comment on above: Result Comment: PER JESSE NURSE CBCD NOT NEEDED Performed By: #### L 100.0100, L500.4050 ####[facility] [address] [place], [address] MCH Normal 27.0-32.0 [facility] Comment on above: Result Comment: PER JESSE NURSE CBCD NOT NEEDED Performed By: #### L 100.0100, L500.4050 ####[facility] [address] [place], [address] MCHC Normal 32-36 [facility] Comment on above: Result Comment: PER JESSE NURSE CBCD NOT NEEDED Performed By: #### L 100.0100, L500.4050 ####[facility] [address] [place], [address] MCV Normal 81-99 [facility] Comment on above: Result Comment: PER JESSE NURSE CBCD NOT NEEDED Performed By: #### L 100.0100, L500.4050 ####[facility] [address] [place], [address] NEUT% Normal 47-70 [facility] Comment on above: Result Comment: PER JESSE NURSE CBCD NOT NEEDED Performed By: #### L 100.0100, L500.4050 ####[facility] [address] [place], [address] PLT Normal 150-450 [facility] Comment on above: Result Comment: PER JESSE NURSE CBCD NOT NEEDED Performed By: #### L 100.0100, L500.4050 ####[facility] [address] [place], [address] RBC Normal 4.2-5.4 [facility] Comment on above: Result Comment: PER JESSE NURSE CBCD NOT NEEDED Performed By: #### L 100.0100, L500.4050 ####[facility] [address] [place], [address] RDW CV Normal 11.6-14.6 [facility] Comment on above: Result Comment: PER JESSE NURSE CBCD NOT NEEDED Performed By: #### L 100.0100, L500.4050 ####[facility] [address] [place], [address] RDW SD Normal 35.1-43.9 [facility] Comment on above: Result Comment: PER JESSE NURSE CBCD NOT NEEDED Performed By: #### L 100.0100, L500.4050 ####[facility] [address] [place], [address] WBC Normal 4.4-11.0 [facility] Comment on above: Result Comment: PER JESSE NURSE CBCD NOT NEEDED Performed By: #### L 100.0100, L500.4050 ####[facility] [address] [place], [address] Comprehensive Metabolic Prof ilon 11-25-2024 Albumin [Mass/Vol] 3.5 g/dL Normal 3.4-4.8 [facility] Comment on above: Performed By: #### L 100.0100, L500.4050 ####[facility] [address] [place], [address] Albumin/Globulin [Mass ratio] 1.1 {ratio} Normal 0.9-2.4 [facility] Comment on above: Performed By: #### L 100.0100, L500.4050 ####[facility] [address] [place], [address] ALK PHOS 582 U/L High 35-104 [facility] Comment on above: Performed By: #### L 100.0100, L500.4050 ####[facility] [address] [place], [address] ALT [Catalytic activity/Vol] 159 U/L High <=34 [facility] Comment on above: Performed By: #### L 100.0100, L500.4050 ####[facility] [address] [place], [address] AST [Catalytic activity/Vol] 698 U/L High <=31 [facility] Comment on above: Performed By: #### L 100.0100, L500.4050 ####[facility] [address] [place], [address] Bilirubin [Mass/Vol] 3.65 mg/dL High 0.00-1.30 [facility] Comment on above: Performed By: #### L 100.0100, L500.4050 ####[facility] [address] [place], [address] BUN/CRE 15.4 RATIO Normal 10-20 [facility] Comment on above: Performed By: #### L 100.0100, L500.4050 ####[facility] [address] [place], [address] Calcium [Mass/Vol] 11.4 mg/dL High 7.6-11.0 [facility] Comment on above: Performed By: #### L 100.0100, L500.4050 ####[facility] [address] [place], [address] Chloride [Moles/Vol] 101 mmol/L Normal 98-108 [facility] Comment on above: Performed By: #### L 100.0100, L500.4050 ####[facility] [address] [place], [address] CO2 [Moles/Vol] 18.1 mmol/L Low 21.0-32.0 [facility] Comment on above: Performed By: #### L 100.0100, L500.4050 ####[facility] [address] [place], [address] Creatinine [Mass/Vol] 1.09 mg/dL Normal 0.70-1.20 [facility] Comment on above: Performed By: #### L 100.0100, L500.4050 ####[facility] [address] [place], [address] ECRCL 45.19 ml/min Low 50-250 [facility] Comment on above: Performed By: #### L 100.0100, L500.4050 ####[facility] [address] [place], [address] GAP 18 High 5-15 [facility] Comment on above: Performed By: #### L 100.0100, L500.4050 ####[facility] [address] [place], [address] GFR/1.73 sq M.predicted among non-blacks MDRD (S/P/Bld) [Vol rate/Area] 55 mL/min/{1.73_m2} Low >60 [facility] Comment on above: Result Comment: mL/m in/1.73m2 CKD-EPI Creatinine Equation (2020) Performed By: #### L 100.0100, L500.4050 ####[facility] [address] [place], [address] Globulin (S) [Mass/Vol] 3.1 g/dL Normal 2.2-4.2 [facility] Comment on above: Performed By: #### L 100.0100, L500.4050 ####[facility] [address] [place], [address] Glucose [Mass/Vol] 111 mg/dL High 70-99 [facility] Comment on above: Performed By: #### L 100.0100, L500.4050 ####[facility] [address] [place], [address] Potassium [Moles/Vol] 3.8 mmol/L Normal 3.3-5.1 [facility] Comment on above: Performed By: #### L 100.0100, L500.4050 ####[facility] [address] [place], [address] Sodium [Moles/Vol] 138 mmol/L Normal 133-145 [facility] Comment on above: Performed By: #### L 100.0100, L500.4050 ####[facility] [address] [place], [address] T PROT 6.5 g/dL Normal 5.9-8.4 [facility] Comment on above: Performed By: #### L 100.0100, L500.4050 ####[facility] [address] [place], [address] Urea nitrogen [Mass/Vol] 17 mg/dL Normal 4-19 [facility] Comment on above: Performed By: #### L 100.0100, L500.4050 ####[facility] [address] [place], [address] ALB Normal 3.4-4.8 [facility] Comment on above: Result Comment: THER E WAS TX PLAN DUPLICATED NEEDS Performed By: #### L 500.4050 ####[facility] [address] [place], [address] ALK PHOS Normal 35-104 [facility] Comment on above: Result Comment: THER E WAS TX PLAN DUPLICATED NEEDS Performed By: #### L 500.4050 ####[facility] [address] [place], [address] ALT Normal <=34 [facility] Comment on above: Result Comment: THER E WAS TX PLAN DUPLICATED NEEDS Performed By: #### L 500.4050 ####[facility] [address] [place], [address] AST Normal <=31 [facility] Comment on above: Result Comment: THER E WAS TX PLAN DUPLICATED NEEDS Performed By: #### L 500.4050 ####[facility] [address] [place], [address] BUN Normal 4-19 [facility] Comment on above: Result Comment: THER E WAS TX PLAN DUPLICATED NEEDS Performed By: #### L 500.4050 ####[facility] [address] [place], [address] BUN/CRE Normal 10-20 [facility] Comment on above: Result Comment: THER E WAS TX PLAN DUPLICATED NEEDS Performed By: #### L 500.4050 ####[facility] [address] [place], [address] Calcium Normal 7.6-11.0 [facility] Comment on above: Result Comment: THER E WAS TX PLAN DUPLICATED NEEDS Performed By: #### L 500.4050 ####[facility] [address] [place], [address] CL Normal 98-108 [facility] Comment on above: Result Comment: THER E WAS TX PLAN DUPLICATED NEEDS Performed By: #### L 500.4050 ####[facility] [address] [place], [address] CO2 Normal 21.0-32.0 [facility] Comment on above: Result Comment: THER E WAS TX PLAN DUPLICATED NEEDS Performed By: #### L 500.4050 ####[facility] [address] [place], [address] CREAT,SERUM Normal 0.70-1.20 [facility] Comment on above: Result Comment: THER E WAS TX PLAN DUPLICATED NEEDS Performed By: #### L 500.4050 ####[facility] [address] [place], [address] eGFR Normal >60 [facility] Comment on above: Result Comment: THER E WAS TX PLAN DUPLICATED NEEDS Performed By: #### L 500.4050 ####[facility] [address] [place], [address] GAP Normal 5-15 [facility] Comment on above: Result Comment: THER E WAS TX PLAN DUPLICATED NEEDS Performed By: #### L 500.4050 ####[facility] [address] [place], [address] GLU Normal 70-99 [facility] Comment on above: Result Comment: THER E WAS TX PLAN DUPLICATED NEEDS Performed By: #### L 500.4050 ####[facility] [address] [place], [address] Potassium Normal 3.3-5.1 [facility] Comment on above: Result Comment: THER E WAS TX PLAN DUPLICATED NEEDS Performed By: #### L 500.4050 ####[facility] [address] [place], [address] T BILI Normal 0.00-1.30 [facility] Comment on above: Result Comment: THER E WAS TX PLAN DUPLICATED NEEDS Performed By: #### L 500.4050 ####[facility] [address] [place], [address] T PROT Normal 5.9-8.4 [facility] Comment on above: Result Comment: THER E WAS TX PLAN DUPLICATED NEEDS Performed By: #### L 500.4050 ####[facility] [address] [place], [address] Comprehensive Metabolic Profil Normal 133-145 [facility] Comment on above: Result Comment: THER E WAS TX PLAN DUPLICATED NEEDS Performed By: #### L 500.4050 ####[facility] [address] [place], [address] CBC W/Diff, Automatedon - 0-2024 Absolute Lymph 0.81 X10 3/uL Low 0.83-4.51 [facility] Comment on above: Performed By: #### L 100.0100, L500.4050 ####[facility] [address] [place], [address] Absolute Neut 6.9 X10 3/uL Normal 2.0-7.7 [facility] Comment on above: Performed By: #### L 100.0100, L500.4050 ####[facility] [address] [place], [address] Basophils/100 WBC (Bld) 0.4 % Normal 0-1 [facility] Comment on above: Performed By: #### L 100.0100, L500.4050 ####[facility] [address] [place], [address] Eosinophils/100 WBC (Bld) 0.1 % Normal 0-5 [facility] Comment on above: Performed By: #### L 100.0100, L500.4050 ####[facility] [address] [place], [address] Erythrocyte distribution width (RBC) [Ratio] 18.2 % High 11.6-14.6 [facility] Comment on above: Performed By: #### L 100.0100, L500.4050 ####[facility] [address] [place], [address] Hematocrit (Bld) [Volume fraction] 41.0 % Normal 37-47 [facility] Comment on above: Performed By: #### L 100.0100, L500.4050 ####[facility] [address] [place], [address] Hemoglobin (Bld) [Mass/Vol] 13.4 g/dL Normal 12.0-15.0 [facility] Comment on above: Performed By: #### L 100.0100, L500.4050 ####[facility] [address] [place], [address] IG% 0.700 Normal 0.0-0.9 [facility] Comment on above: Result Comment: IG% - Immature Granulocytes (promyelocytes, myelocytes andmetamyelocytes) > 1% indicates that a LEFT SHIFT is Present. Performed By: #### L 100.0100, L500.4050 ####[facility] [address] [place], [address] Lymphocytes/100 WBC (Bld) 9.0 % Low 19-41 [facility] Comment on above: Performed By: #### L 100.0100, L500.4050 ####[facility] [address] [place], [address] MCH (RBC) [Entitic mass] 28.6 pg Normal 27.0-32.0 [facility] Comment on above: Performed By: #### L 100.0100, L500.4050 ####[facility] [address] [place], [address] MCHC (RBC) [Mass/Vol] 32.7 g/dL Normal 32-36 [facility] Comment on above: Performed By: #### L 100.0100, L500.4050 ####[facility] [address] [place], [address] MCV (RBC) [Entitic vol] 87.4 fL Normal 81-99 [facility] Comment on above: Performed By: #### L 100.0100, L500.4050 ####[facility] [address] [place], [address] Monocytes/100 WBC (Bld) 13.4 % High 0-10 [facility] Comment on above: Performed By: #### L 100.0100, L500.4050 ####[facility] [address] [place], [address] Neutrophils/100 WBC (Bld) 76.4 % High 47-70 [facility] Comment on above: Performed By: #### L 100.0100, L500.4050 ####[facility] [address] [place], [address] Nucleated RBC (Bld) [#/Vol] 0.2 10*3/uL Normal 0-5 [facility] Comment on above: Performed By: #### L 100.0100, L500.4050 ####[facility] [address] [place], [address] Platelet mean volume (Bld) [Entitic vol] 11.3 fL Normal 6.2-12.0 [facility] Comment on above: Performed By: #### L 100.0100, L500.4050 ####[facility] [address] [place], [address] Platelets (Bld) [#/Vol] 340 10*3/uL Normal 150-450 [facility] Comment on above: Performed By: #### L 100.0100, L500.4050 ####[facility] [address] [place], [address] RBC (Bld) [#/Vol] 4.69 10*6/uL Normal 4.2-5.4 [facility] Comment on above: Performed By: #### L 100.0100, L500.4050 ####[facility] [address] [place], [address] RDW SD 56.8 fl High 35.1-43.9 [facility] Comment on above: Performed By: #### L 100.0100, L500.4050 ####[facility] [address] [place], [address] WBC (Bld) [#/Vol] 9.0 10*3/uL Normal 4.4-11.0 [facility] Comment on above: Performed By: #### L 100.0100, L500.4050 ####[facility] [address] [place], [address] Comprehensive Metabolic Prof il 11-24-2024 Albumin [Mass/Vol] 3.6 g/dL Normal 3.4-4.8 [facility] Comment on above: Performed By: #### L 100.0100, L500.4050 ####[facility] [address] [place], [address] Albumin/Globulin [Mass ratio] 1.1 {ratio} Normal 0.9-2.4 [facility] Comment on above: Performed By: #### L 100.0100, L500.4050 ####[facility] [address] [place], [address] ALK PHOS 606 U/L High 35-104 [facility] Comment on above: Performed By: #### L 100.0100, L500.4050 ####[facility] [address] [place], [address] ALT [Catalytic activity/Vol] 164 U/L High <=34 [facility] Comment on above: Performed By: #### L 100.0100, L500.4050 ####[facility] [address] [place], [address] AST [Catalytic activity/Vol] 675 U/L High <=31 [facility] Comment on above: Performed By: #### L 100.0100, L500.4050 ####[facility] [address] [place], [address] Bilirubin [Mass/Vol] 3.14 mg/dL High 0.00-1.30 [facility] Comment on above: Performed By: #### L 100.0100, L500.4050 ####[facility] [address] [place], [address] BUN/CRE 17.6 RATIO Normal 10-20 [facility] Comment on above: Performed By: #### L 100.0100, L500.4050 ####[facility] [address] [place], [address] Calcium [Mass/Vol] 11.8 mg/dL High 7.6-11.0 [facility] Comment on above: Performed By: #### L 100.0100, L500.4050 ####[facility] [address] [place], [address] Chloride [Moles/Vol] 100 mmol/L Normal 98-108 [facility] Comment on above: Performed By: #### L 100.0100, L500.4050 ####[facility] [address] [place], [address] CO2 [Moles/Vol] 21.0 mmol/L Normal 21.0-32.0 [facility] Comment on above: Performed By: #### L 100.0100, L500.4050 ####[facility] [address] [place], [address] Creatinine [Mass/Vol] 1.29 mg/dL High 0.70-1.20 [facility] Comment on above: Performed By: #### L 100.0100, L500.4050 ####[facility] [address] [place], [address] ECRCL 38.19 ml/min Low 50-250 [facility] Comment on above: Performed By: #### L 100.0100, L500.4050 ####[facility] [address] [place], [address] GAP 17 High 5-15 [facility] Comment on above: Performed By: #### L 100.0100, L500.4050 ####[facility] [address] [place], [address] GFR/1.73 sq M.predicted among non-blacks MDRD (S/P/Bld) [Vol rate/Area] 45 mL/min/{1.73_m2} Low >60 [facility] Comment on above: Result Comment: mL/m in/1.73m2 CKD-EPI Creatinine Equation (2020) Performed By: #### L 100.0100, L500.4050 ####[facility] [address] [place], [address] Globulin (S) [Mass/Vol] 3.2 g/dL Normal 2.2-4.2 [facility] Comment on above: Performed By: #### L 100.0100, L500.4050 ####[facility] [address] [place], [address] Glucose [Mass/Vol] 97 mg/dL Normal 70-99 [facility] Comment on above: Performed By: #### L 100.0100, L500.4050 ####[facility] [address] [place], [address] Potassium [Moles/Vol] 4.2 mmol/L Normal 3.3-5.1 [facility] Comment on above: Performed By: #### L 100.0100, L500.4050 ####[facility] [address] [place], [address] Sodium [Moles/Vol] 138 mmol/L Normal 133-145 [facility] Comment on above: Performed By: #### L 100.0100, L500.4050 ####[facility] [address] [place], [address] T PROT 6.8 g/dL Normal 5.9-8.4 [facility] Comment on above: Performed By: #### L 100.0100, L500.4050 ####[facility] [address] [place], [address] Urea nitrogen [Mass/Vol] 23 mg/dL High 4-19 [facility] Comment on above: Performed By: #### L 100.0100, L500.4050 ####[facility] [address] [place], [address] Oncology Visit Reporton 11-15 Oncology Visit Report Normal [facility] Absolute lymphocyte countOrd ered By: Yenifer Patten on 11-23-2024 Lymphocytes Auto (Unsp spec) [#/Vol] 0.69 10*3/uL Low 0.83-4.51 [facility] Absolute neutrophil countOrd ered By: Yenifer Patten on 11-23-2024 Neutrophils (Bld) [#/Vol] 7.5 10*3/uL 2.0-7.7 [facility] Anion gap in Serum or Plasma Ordered By: Yenifer Patten on 11-23-2024 Anion gap [Moles/Vol] 18 mmol/L High 5-15 [facility] Automated lymphocyte count a s percentage of total leukocytesOrdered By: Yenifer Patten on 11-23-2024 Lymphocytes/100 WBC Auto (Unsp spec) 7.2 % Low 19-41 [facility] BUN/creatinine ratioOrdered By: Yenifer Patten on 11-23-2024 Urea nitrogen/Creatinine [Mass ratio] 18.3 mg/mg 10-20 [facility] Basophil percentageOrdered B y: Yenifer Patten on 11-23-2024 Basophils/100 WBC (Bld) 0.4 % 0-1 [facility] Bilirubin, totalOrdered By: Yenifer Patten on 11-23-2024 Bilirubin [Mass/Vol] 3.04 mg/dL High 0.00-1.30 [facility] CBC W/Diff, Automatedon 030 Absolute Lymph 0.69 X10 3/uL Low 0.83-4.51 [facility] Comment on above: Performed By: #### L 100.0100, L500.4050, L501.2450 ####[facility] [address] [place], [address] Absolute Neut 7.5 X10 3/uL Normal 2.0-7.7 [facility] Comment on above: Performed By: #### L 100.0100, L500.4050, L501.2450 ####[facility] [address] [place], [address] Basophils/100 WBC (Bld) 0.4 % Normal 0-1 [facility] Comment on above: Performed By: #### L 100.0100, L500.4050, L501.2450 ####[facility] [address] [place], [address] Eosinophils/100 WBC (Bld) 0.1 % Normal 0-5 [facility] Comment on above: Performed By: #### L 100.0100, L500.4050, L501.2450 ####[facility] [address] [place], [address] Erythrocyte distribution width (RBC) [Ratio] 17.4 % High 11.6-14.6 [facility] Comment on above: Performed By: #### L 100.0100, L500.4050, L501.2450 ####[facility] [address] [place], [address] Hematocrit (Bld) [Volume fraction] 41.5 % Normal 37-47 [facility] Comment on above: Performed By: #### L 100.0100, L500.4050, L501.2450 ####[facility] [address] [place], [address] Hemoglobin (Bld) [Mass/Vol] 14.3 g/dL Normal 12.0-15.0 [facility] Comment on above: Performed By: #### L 100.0100, L500.4050, L501.2450 ####[facility] [address] [place], [address] IG% 0.700 Normal 0.0-0.9 [facility] Comment on above: Result Comment: IG% - Immature Granulocytes (promyelocytes, myelocytes andmetamyelocytes) > 1% indicates that a LEFT SHIFT is Present. Performed By: #### L 100.0100, L500.4050, L501.2450 ####[facility] [address] [place], [address] Lymphocytes/100 WBC (Bld) 7.2 % Low 19-41 [facility] Comment on above: Performed By: #### L 100.0100, L500.4050, L501.2450 ####[facility] [address] [place], [address] MCH (RBC) [Entitic mass] 29.8 pg Normal 27.0-32.0 [facility] Comment on above: Performed By: #### L 100.0100, L500.4050, L501.2450 ####[facility] [address] [place], [address] MCHC (RBC) [Mass/Vol] 34.5 g/dL Normal 32-36 [facility] Comment on above: Performed By: #### L 100.0100, L500.4050, L501.2450 ####[facility] [address] [place], [address] MCV (RBC) [Entitic vol] 86.5 fL Normal 81-99 [facility] Comment on above: Performed By: #### L 100.0100, L500.4050, L501.2450 ####[facility] [address] [place], [address] Monocytes/100 WBC (Bld) 13.0 % High 0-10 [facility] Comment on above: Performed By: #### L 100.0100, L500.4050, L501.2450 ####[facility] [address] [place], [address] Neutrophils/100 WBC (Bld) 78.6 % High 47-70 [facility] Comment on above: Performed By: #### L 100.0100, L500.4050, L501.2450 ####[facility] [address] [place], [address] Nucleated RBC (Bld) [#/Vol] 0.3 10*3/uL Normal 0-5 [facility] Comment on above: Performed By: #### L 100.0100, L500.4050, L501.2450 ####[facility] [address] [place], [address] Platelet mean volume (Bld) [Entitic vol] 11.5 fL Normal 6.2-12.0 [facility] Comment on above: Performed By: #### L 100.0100, L500.4050, L501.2450 ####[facility] [address] [place], [address] Platelets (Bld) [#/Vol] 348 10*3/uL Normal 150-450 [facility] Comment on above: Performed By: #### L 100.0100, L500.4050, L501.2450 ####[facility] [address] [place], [address] RBC (Bld) [#/Vol] 4.80 10*6/uL Normal 4.2-5.4 [facility] Comment on above: Performed By: #### L 100.0100, L500.4050, L501.2450 ####[facility] [address] [place], [address] RDW SD 53.6 fl High 35.1-43.9 [facility] Comment on above: Performed By: #### L 100.0100, L500.4050, L501.2450 ####[facility] [address] [place], [address] WBC (Bld) [#/Vol] 9.6 10*3/uL Normal 4.4-11.0 [facility] Comment on above: Performed By: #### L 100.0100, L500.4050, L501.2450 ####[facility] [address] [place], [address] Carbon dioxide, total [Moles /volume] in Central venous bloodOrdered By: Yenifer Patten on 11-23-2024 CO2 [Moles/Vol] 19.7 mmol/L Low 21.0-32.0 [facility] Chloride assayOrdered By: Kristin Patten on 11-23-2024 Chloride [Moles/Vol] 101 mmol/L 98-108 [facility] Comprehensive Metabolic Prof ilon 11-23-2024 Albumin [Mass/Vol] 3.5 g/dL Normal 3.4-4.8 [facility] Comment on above: Performed By: #### L 100.0100, L500.4050, L501.2450 ####[facility] [address] [place], [address] Albumin/Globulin [Mass ratio] 1.1 {ratio} Normal 0.9-2.4 [facility] Comment on above: Performed By: #### L 100.0100, L500.4050, L501.2450 ####[facility] [address] [place], [address] ALK PHOS 603 U/L High 35-104 [facility] Comment on above: Performed By: #### L 100.0100, L500.4050, L501.2450 ####[facility] [address] [place], [address] ALT [Catalytic activity/Vol] 159 U/L High <=34 [facility] Comment on above: Performed By: #### L 100.0100, L500.4050, L501.2450 ####[facility] [address] [place], [address] AST [Catalytic activity/Vol] 683 U/L High <=31 [facility] Comment on above: Performed By: #### L 100.0100, L500.4050, L501.2450 ####[facility] [address] [place], [address] Bilirubin [Mass/Vol] 3.04 mg/dL High 0.00-1.30 [facility] Comment on above: Performed By: #### L 100.0100, L500.4050, L501.2450 ####[facility] [address] [place], [address] BUN/CRE 18.3 RATIO Normal 10-20 [facility] Comment on above: Performed By: #### L 100.0100, L500.4050, L501.2450 ####[facility] [address] [place], [address] Calcium [Mass/Vol] 11.8 mg/dL High 7.6-11.0 [facility] Comment on above: Performed By: #### L 100.0100, L500.4050, L501.2450 ####[facility] [address] [place], [address] Chloride [Moles/Vol] 101 mmol/L Normal 98-108 [facility] Comment on above: Performed By: #### L 100.0100, L500.4050, L501.2450 ####[facility] [address] [place], [address] CO2 [Moles/Vol] 19.7 mmol/L Low 21.0-32.0 [facility] Comment on above: Performed By: #### L 100.0100, L500.4050, L501.2450 ####[facility] [address] [place], [address] Creatinine [Mass/Vol] 1.22 mg/dL High 0.70-1.20 [facility] Comment on above: Performed By: #### L 100.0100, L500.4050, L501.2450 ####[facility] [address] [place], [address] ECRCL 40.43 ml/min Low 50-250 [facility] Comment on above: Performed By: #### L 100.0100, L500.4050, L501.2450 ####[facility] [address] [place], [address] GAP 18 High 5-15 [facility] Comment on above: Performed By: #### L 100.0100, L500.4050, L501.2450 ####[facility] [address] [place], [address] GFR/1.73 sq M.predicted among non-blacks MDRD (S/P/Bld) [Vol rate/Area] 48 mL/min/{1.73_m2} Low >60 [facility] Comment on above: Result Comment: mL/m in/1.73m2 CKD-EPI Creatinine Equation (2020) Performed By: #### L 100.0100, L500.4050, L501.2450 ####[facility] [address] [place], [address] Globulin (S) [Mass/Vol] 3.2 g/dL Normal 2.2-4.2 [facility] Comment on above: Performed By: #### L 100.0100, L500.4050, L501.2450 ####[facility] [address] [place], [address] Glucose [Mass/Vol] 118 mg/dL High 70-99 [facility] Comment on above: Performed By: #### L 100.0100, L500.4050, L501.2450 ####[facility] [address] [place], [address] Potassium [Moles/Vol] 4.3 mmol/L Normal 3.3-5.1 [facility] Comment on above: Performed By: #### L 100.0100, L500.4050, L501.2450 ####[facility] [address] [place], [address] Sodium [Moles/Vol] 139 mmol/L Normal 133-145 [facility] Comment on above: Performed By: #### L 100.0100, L500.4050, L501.2450 ####[facility] [address] [place], [address] T PROT 6.8 g/dL Normal 5.9-8.4 [facility] Comment on above: Performed By: #### L 100.0100, L500.4050, L501.2450 ####[facility] [address] [place], [address] Urea nitrogen [Mass/Vol] 22 mg/dL High 4-19 [facility] Comment on above: Performed By: #### L 100.0100, L500.4050, L501.2450 ####[facility] [address] [place], [address] Emergency Department Summary on 11-23-2024 Emergency Department Summary Normal [facility] Eosinophil percentageOrdered By: Yenifer Patten on 11-23-2024 Eosinophils/100 WBC (Bld) 0.1 % 0-5 [facility] Erythrocyte distribution wid th ratioOrdered By: Yenifer Patten on 11-23-2024 Erythrocyte distribution width (RBC) [Ratio] 17.4 % High 11.6-14.6 [facility] Erythrocyte distribution wid th standard deviationOrdered By: Yenifer Patten on 11-23-2024 Erythrocyte distribution width (RBC) [Entitic vol] 53.6 fL High 35.1-43.9 [facility] Erythrocyte distribution width (RBC) [Ratio] 53.6 fl High 35.1-43.9 [facility] Estimation of creatinine lubna aranceOrdered By: Yenifer Patten on 11-23-2024 Estimated Creatinine Clearance Calc 40.43 ml/min Low 50-250 [facility] GFR/1.73 sq M.predicted mary g non-blacks MDRD (S/P/Bld) [Vol rate/Area]Ordered By: Yenifer Patten on 11-23-2024 Estimated GFR (MDRD) Non-Af Amer 48 Low >60 [facility] Comment on above: mL/min/1.73m2 CKD-EP I Creatinine Equation (2020) Glomerular filtration rate ( GFR) estimation/1.73 sq m using serum, plasma, or whole bOrdered By: Yenifer Patten on 11-23-2024 GFR/1.73 sq M.predicted among non-blacks MDRD (S/P/Bld) [Vol rate/Area] 48 mL/min/{1.73_m2} Low >60 [facility] Comment on above: mL/min/1.73m2 CKD-EP I Creatinine Equation (2020) Hematocrit Auto (Bld) [Volum e fraction]Ordered By: Yenifer Patten on 11-23-2024 Hematocrit (Bld) [Volume fraction] 41.5 % 37-47 [facility] Hemoglobin measurementOrdere d By: Yenifer Patten on 11-23-2024 Hemoglobin (Bld) [Mass/Vol] 14.3 g/dL 12.0-15.0 [facility] Immature granulocytes/100 WB C Auto (Bld)Ordered By: Yenifer Patten on 11-23-2024 Immature granulocytes/100 WBC (Bld) 0.700 % 0.0-0.9 [facility] Comment on above: IG% - Immature Granu locytes (promyelocytes, myelocytes and metamyelocytes) > 1% indicates that a LEFT SHIFT is Present. Laboratory - Chemistry and C hemistry - challengeOrdered By: Yenifer Patten on 11-23-2024 AST [Catalytic activity/Vol] 683 U/L High <32 [facility] Lipaseon 11-23-2024 Lipase [Catalytic activity/Vol] 267 U/L High 13-75 [facility] Comment on above: Result Comment: Elise brunson note:LIPASE revised reference range effective 22.New Lipase methodology. Expected to produce lower valuesthan the previous assay method.NEW Reference Range: 13 - 75 U/L Performed By: #### L 100.0100, L500.4050, L501.2450 ####[facility] [address] [place], [address] Lipase measurementOrdered By : Yenifer Patten on 11-23-2024 Lipase [Catalytic activity/Vol] 267 U/L High 13-75 [facility] Comment on above: Please note:LIPASE r evised reference range effective 22. New Lipase methodology. Expected to produce lower values than the previous assay method. NEW Reference Range: 13 - 75 U/L Lymphocytes Auto (Unsp spec) [#/Vol]Ordered By: Yenifer Patten on 11-23-2024 Lymphocytes (Bld) [#/Vol] 0.69 10*3/uL Low 0.83-4.51 [facility] Lymphocytes/100 WBC Auto (Un sp spec)Ordered By: Yenifer Patten on 11-23-2024 Lymphocytes/100 WBC (Bld) 7.2 % Low 19-41 [facility] MCV (mean corpuscular volume ) determinationOrdered By: Yenifer Patten on 11-23-2024 MCV (RBC) [Entitic vol] 86.5 fL 81-99 [facility] Mean corpuscular hemoglobin (MCH) determinationOrdered By: Yenifer Patten on 11-23-2024 MCH (RBC) [Entitic mass] 29.8 pg 27.0-32.0 [facility] Mean corpuscular hemoglobin concentration (MCHC) determinationOrdered By: Yenifer Patten on 11-23-2024 MCHC (RBC) [Mass/Vol] 34.5 g/dL 32-36 [facility] Mean platelet volume determi nationOrdered By: Yenifer Patten on 11-23-2024 Platelet mean volume (Bld) [Entitic vol] 11.5 fL 6.2-12.0 [facility] Monocyte percentageOrdered B y: Yenifer Patten on 11-23-2024 Monocytes/100 WBC (Bld) 13.0 % High 0-10 [facility] Neutrophil percentageOrdered By: Yenifer Patten on 11-23-2024 Neutrophils/100 WBC (Bld) 78.6 % High 47-70 [facility] No Panel InformationOrdered By: Yenifer Patten on 11-23-2024 683 U/L High <32 [facility] Nucleated red blood cell per centageOrdered By: Yenifer Patten on 11-23-2024 Nucleated RBC/100 WBC (Bld) [Ratio] 0.3 % 0-5 [facility] Platelet countOrdered By: Kristin Patten on 11-23-2024 Platelets (Bld) [#/Vol] 348 10*3/uL 150-450 [facility] Potassium (Unsp spec) [Mass/ Vol]Ordered By: Yenifer Patten on 11-23-2024 Potassium [Moles/Vol] 4.3 mmol/L 3.3-5.1 [facility] Potassium measurement (mass/ volume)Ordered By: Yenifer Patten on 11-23-2024 Potassium (Unsp spec) [Mass/Vol] 4.3 mmol/L 3.3-5.1 [facility] RBC Auto (Bld) [#/Vol]Ordere d By: Yenifer Patten on 11-23-2024 RBC (Bld) [#/Vol] 4.80 10*6/uL 4.2-5.4 [facility] Serum creatinine measurement (mass/volume)Ordered By: Yenifer Patten on 11-23-2024 Creatinine [Mass/Vol] 1.22 mg/dL High 0.70-1.20 [facility] Serum globulin measurementOr dered By: Yenifer Patten on 11-23-2024 Globulin (S) [Mass/Vol] 3.2 g/dL 2.2-4.2 [facility] Serum glucose measurement (m ass/volume)Ordered By: Yenifer Patten on 11-23-2024 Glucose [Mass/Vol] 118 mg/dL High 70-99 [facility] Serum or plasma alanine encarnacion otransferase (ALT) measurementOrdered By: Yenifer Patten on 11-23-2024 ALT [Catalytic activity/Vol] 159 U/L High <35 [facility] Serum or plasma albumin jayro urement (mass/volume)Ordered By: Yenifer Patten on 11-23-2024 Albumin [Mass/Vol] 3.5 g/dL 3.4-4.8 [facility] Serum or plasma albumin/glob ulin mass ratioOrdered By: Yenifer Patten on 11-23-2024 Albumin/Globulin [Mass ratio] 1.1 {ratio} 0.9-2.4 [facility] Serum or plasma alkaline lukas sphatase measurementOrdered By: Yenifer Patten on 11-23-2024 ALP [Catalytic activity/Vol] 603 U/L High 35-104 [facility] Serum or plasma calcium jayro urement (mass/volume)Ordered By: Yenifer Patten on 11-23-2024 Calcium [Mass/Vol] 11.8 mg/dL High 7.6-11.0 [facility] Serum or plasma urea nitroge n measurement (mass/volume)Ordered By: Yenifer Patten on 11-23-2024 Urea nitrogen [Mass/Vol] 22 mg/dL High 4-19 [facility] Sodium levelOrdered By: Yenifer Patten on 11-23-2024 Sodium [Moles/Vol] 139 mmol/L 133-145 [facility] Total proteinOrdered By: Laura Patten on 11-23-2024 Protein [Mass/Vol] 6.8 g/dL 5.9-8.4 [facility] White blood cell (WBC) count Ordered By: Yenifer Patten on 11-23-2024 WBC (Bld) [#/Vol] 9.6 10*3/uL 4.4-11.0 [facility] BUN/creatinine ratioOrdered By: Mae Horton on 11-14-2024 Urea nitrogen/Creatinine [Mass ratio] 10.6 mg/mg 10-20 [facility] Basic Metabolic Profile (BMP )on 11-14-2024 Anion gap [Moles/Vol] 13 mmol/L Normal 5-15 [facility] Comment on above: Performed By: #### L 100.0500, L500.2500 ####[facility] [address] [place], [address] BUN/CRE 10.6 RATIO Normal 10-20 [facility] Comment on above: Performed By: #### L 100.0500, L500.2500 ####[facility] [address] [place], [address] Calcium [Mass/Vol] 10.1 mg/dL Normal 7.6-11.0 [facility] Comment on above: Performed By: #### L 100.0500, L500.2500 ####[facility] [address] [place], [address] Chloride [Moles/Vol] 105 mmol/L Normal 96-108 [facility] Comment on above: Performed By: #### L 100.0500, L500.2500 ####[facility] [address] [place], [address] CO2 [Moles/Vol] 20.3 mmol/L Low 22.0-29.0 [facility] Comment on above: Performed By: #### L 100.0500, L500.2500 ####[facility] [address] [place], [address] Creatinine [Mass/Vol] 0.91 mg/dL Normal 0.70-1.20 [facility] Comment on above: Performed By: #### L 100.0500, L500.2500 ####[facility] [address] [place], [address] ECRCL 54.89 ml/min Normal [facility] Comment on above: Performed By: #### L 100.0500, L500.2500 ####[facility] [address] [place], [address] GFR/1.73 sq M.predicted among non-blacks MDRD (S/P/Bld) [Vol rate/Area] 68 mL/min/{1.73_m2} Normal >60 [facility] Comment on above: Result Comment: mL/m in/1.73m2 CKD-EPI Creatinine Equation (2020) Performed By: #### L 100.0500, L500.2500 ####[facility] [address] [place], [address] Glucose [Mass/Vol] 95 mg/dL Normal 70-99 [facility] Comment on above: Performed By: #### L 100.0500, L500.2500 ####[facility] [address] [place], [address] Potassium [Moles/Vol] 4.2 mmol/L Normal 3.3-5.1 [facility] Comment on above: Performed By: #### L 100.0500, L500.2500 ####[facility] [address] [place], [address] Sodium [Moles/Vol] 139 mmol/L Normal 133-145 [facility] Comment on above: Performed By: #### L 100.0500, L500.2500 ####[facility] [address] [place], [address] Urea nitrogen [Mass/Vol] 10 mg/dL Normal 4-19 [facility] Comment on above: Performed By: #### L 100.0500, L500.2500 ####[facility] [address] [place], [address] Biopsy/Inj or Needle Placeme nton 11-14-2024 Biopsy/Inj or Needle Placement Normal [facility] CBC-Complete Blood Cnt No Di ffon 11-14-2024 Erythrocyte distribution width (RBC) [Ratio] 15.8 % High 11.6-14.6 [facility] Comment on above: Performed By: #### L 100.0500, L500.2500 ####[facility] [address] [place], [address] Hematocrit (Bld) [Volume fraction] 37.1 % Normal 37-47 [facility] Comment on above: Performed By: #### L 100.0500, L500.2500 ####[facility] [address] [place], [address] Hemoglobin (Bld) [Mass/Vol] 12.0 g/dL Normal 12.0-15.0 [facility] Comment on above: Performed By: #### L 100.0500, L500.2500 ####[facility] [address] [place], [address] MCH (RBC) [Entitic mass] 28.8 pg Normal 27.0-32.0 [facility] Comment on above: Performed By: #### L 100.0500, L500.2500 ####[facility] [address] [place], [address] MCHC (RBC) [Mass/Vol] 32.3 g/dL Normal 32-36 [facility] Comment on above: Performed By: #### L 100.0500, L500.2500 ####[facility] [address] [place], [address] MCV (RBC) [Entitic vol] 89.0 fL Normal 81-99 [facility] Comment on above: Performed By: #### L 100.0500, L500.2500 ####[facility] [address] [place], [address] Platelet mean volume (Bld) [Entitic vol] 12.0 fL Normal 6.2-12.0 [facility] Comment on above: Performed By: #### L 100.0500, L500.2500 ####[facility] [address] [place], [address] Platelets (Bld) [#/Vol] 275 10*3/uL Normal 150-450 [facility] Comment on above: Performed By: #### L 100.0500, L500.2500 ####[facility] [address] [place], [address] RBC (Bld) [#/Vol] 4.17 10*6/uL Low 4.2-5.4 [facility] Comment on above: Performed By: #### L 100.0500, L500.2500 ####[facility] [address] [place], [address] RDW SD 50.9 fl High 35.1-43.9 [facility] Comment on above: Performed By: #### L 100.0500, L500.2500 ####[facility] [address] [place], [address] WBC (Bld) [#/Vol] 7.2 10*3/uL Normal 4.4-11.0 [facility] Comment on above: Performed By: #### L 100.0500, L500.2500 ####[facility] [address] [place], [address] Carbon dioxide measurementOr dered By: Mae Horton on 11-14-2024 CO2 [Moles/Vol] 20.3 mmol/L Low 22.0-29.0 [facility] Chloride measurementOrdered By: Mae Horton on 11-14-2024 Chloride [Moles/Vol] 105 mmol/L 96-108 [facility] Erythrocyte distribution wid th ratioOrdered By: Mae Horton on 11-14-2024 Erythrocyte distribution width (RBC) [Ratio] 15.8 % High 11.6-14.6 [facility] Erythrocyte distribution wid th standard deviationOrdered By: Mae Horton on 11-14-2024 Erythrocyte distribution width (RBC) [Entitic vol] 50.9 fL High 35.1-43.9 [facility] Erythrocyte distribution width (RBC) [Ratio] 50.9 fl High 35.1-43.9 [facility] Estimation of creatinine lubna aranceOrdered By: Mae Horton on 11-14-2024 Estimated Creatinine Clearance Calc 54.89 ml/min [facility] GFR/1.73 sq M.predicted mary g non-blacks MDRD (S/P/Bld) [Vol rate/Area]Ordered By: Mae Horton on 11-14-2024 Estimated GFR (MDRD) Non-Af Amer 68 >60 [facility] Comment on above: mL/min/1.73m2 CKD-EP I Creatinine Equation (2020) Glomerular filtration rate ( GFR) estimation/1.73 sq m using serum, plasma, or whole bOrdered By: Mae Horton on 11-14-2024 GFR/1.73 sq M.predicted among non-blacks MDRD (S/P/Bld) [Vol rate/Area] 68 mL/min/{1.73_m2} >60 [facility] Comment on above: mL/min/1.73m2 CKD-EP I Creatinine Equation (2020) Hematocrit Auto (Bld) [Volum e fraction]Ordered By: Mae Horton on 11-14-2024 Hematocrit (Bld) [Volume fraction] 37.1 % 37-47 [facility] Hemoglobin measurementOrdere d By: Mae Horton on 11-14-2024 Hemoglobin (Bld) [Mass/Vol] 12.0 g/dL 12.0-15.0 [facility] Immunohistochemical Stainson 11-14-2024 Immunohistochemical Stains Normal [facility] Comment on above: Performed By: #### P [facility] ####[facility] [address] [place], [place], [id number] MCV (mean corpuscular volume ) determinationOrdered By: Mae Horton on 11-14-2024 MCV (RBC) [Entitic vol] 89.0 fL 81-99 [facility] Mean corpuscular hemoglobin (MCH) determinationOrdered By: Mae Horton on 11-14-2024 MCH (RBC) [Entitic mass] 28.8 pg 27.0-32.0 [facility] Mean corpuscular hemoglobin concentration (MCHC) determinationOrdered By: Mae Horton on 11-14-2024 MCHC (RBC) [Mass/Vol] 32.3 g/dL 32-36 [facility] Mean platelet volume determi nationOrdered By: Mae Horton on 11-14-2024 Platelet mean volume (Bld) [Entitic vol] 12.0 fL 6.2-12.0 [facility] Platelet countOrdered By: Kassie Horton on 11-14-2024 Platelets (Bld) [#/Vol] 275 10*3/uL 150-450 [facility] RBC Auto (Bld) [#/Vol]Ordere d By: Mae Horton on 11-14-2024 RBC (Bld) [#/Vol] 4.17 10*6/uL Low 4.2-5.4 [facility] Serum creatinine measurement (mass/volume)Ordered By: Mae Horton on 11-14-2024 Creatinine [Mass/Vol] 0.91 mg/dL 0.70-1.20 [facility] Serum glucose measurement (m ass/volume)Ordered By: Mae Horton on 11-14-2024 Glucose [Mass/Vol] 95 mg/dL 70-99 [facility] Serum or plasma anion gap de termination (moles/volume)Ordered By: Mae Horton on 11-14-2024 Anion gap [Moles/Vol] 13 mmol/L 5-15 [facility] Serum or plasma calcium jayro urement (mass/volume)Ordered By: Mae Horton on 11-14-2024 Calcium [Mass/Vol] 10.1 mg/dL 7.6-11.0 [facility] Serum or plasma potassium me asurementOrdered By: Mae Horton on 11-14-2024 Potassium [Moles/Vol] 4.2 mmol/L 3.3-5.1 [facility] Serum or plasma sodium measu rement (moles/volume)Ordered By: Mae Horton on 11-14-2024 Sodium [Moles/Vol] 139 mmol/L 133-145 [facility] Serum or plasma urea nitroge n measurement (mass/volume)Ordered By: Mae Horton on 11-14-2024 Urea nitrogen [Mass/Vol] 10 mg/dL 4-19 [facility] White blood cell (WBC) count Ordered By: Mae Horton on 11-14-2024 WBC (Bld) [#/Vol] 7.2 10*3/uL 4.4-11.0 [facility] 12 Lead EKGon 11-13-2024 12 Lead EKG Normal [facility] Absolute lymphocyte countOrd ered By: Mae Horton on 11-13-2024 Lymphocytes Auto (Unsp spec) [#/Vol] 1.02 10*3/uL 0.83-4.51 [facility] Absolute neutrophil countOrd ered By: Mae Horton on 11-13-2024 Neutrophils (Bld) [#/Vol] 4.2 10*3/uL 2.0-7.7 [facility] Automated lymphocyte count a s percentage of total leukocytesOrdered By: Mae Horton on 11-13-2024 Lymphocytes/100 WBC Auto (Unsp spec) 16.3 % Low 19-41 [facility] Basophil percentageOrdered B y: Mae Horton on 11-13-2024 Basophils/100 WBC (Bld) 0.8 % 0-1 [facility] Bilirubin, totalOrdered By: Mae Horton on 11-13-2024 Bilirubin [Mass/Vol] 0.84 mg/dL 0.00-1.30 [facility] CBC W/Diff, Automatedon 10-19 Absolute Lymph 1.02 X10 3/uL Normal 0.83-4.51 [facility] Comment on above: Performed By: #### L 501.2300, L100.0100, L501.9520, L501.5200, L500.4050 ####[facility] [address] [place], [address] Absolute Neut 4.2 X10 3/uL Normal 2.0-7.7 [facility] Comment on above: Performed By: #### L 501.2300, L100.0100, L501.9520, L501.5200, L500.4050 ####[facility] [address] [place], [address] Basophils/100 WBC (Bld) 0.8 % Normal 0-1 [facility] Comment on above: Performed By: #### L 501.2300, L100.0100, L501.9520, L501.5200, L500.4050 ####[facility] [address] [place], [address] Eosinophils/100 WBC (Bld) 0.6 % Normal 0-5 [facility] Comment on above: Performed By: #### L 501.2300, L100.0100, L501.9520, L501.5200, L500.4050 ####[facility] [address] [place], [address] Erythrocyte distribution width (RBC) [Ratio] 15.3 % High 11.6-14.6 [facility] Comment on above: Performed By: #### L 501.2300, L100.0100, L501.9520, L501.5200, L500.4050 ####[facility] [address] [place], [address] Hematocrit (Bld) [Volume fraction] 35.9 % Low 37-47 [facility] Comment on above: Performed By: #### L 501.2300, L100.0100, L501.9520, L501.5200, L500.4050 ####[facility] [address] [place], [address] Hemoglobin (Bld) [Mass/Vol] 11.7 g/dL Low 12.0-15.0 [facility] Comment on above: Performed By: #### L 501.2300, L100.0100, L501.9520, L501.5200, L500.4050 ####[facility] [address] [place], [address] IG% 0.300 Normal 0.0-0.9 [facility] Comment on above: Result Comment: IG% - Immature Granulocytes (promyelocytes, myelocytes andmetamyelocytes) > 1% indicates that a LEFT SHIFT is Present. Performed By: #### L 501.2300, L100.0100, L501.9520, L501.5200, L500.4050 ####[facility] [address] [place], [address] Lymphocytes/100 WBC (Bld) 16.3 % Low 19-41 [facility] Comment on above: Performed By: #### L 501.2300, L100.0100, L501.9520, L501.5200, L500.4050 ####[facility] [address] [place], [address] MCH (RBC) [Entitic mass] 28.9 pg Normal 27.0-32.0 [facility] Comment on above: Performed By: #### L 501.2300, L100.0100, L501.9520, L501.5200, L500.4050 ####[facility] [address] [place], [address] MCHC (RBC) [Mass/Vol] 32.6 g/dL Normal 32-36 [facility] Comment on above: Performed By: #### L 501.2300, L100.0100, L501.9520, L501.5200, L500.4050 ####[facility] [address] [place], [address] MCV (RBC) [Entitic vol] 88.6 fL Normal 81-99 [facility] Comment on above: Performed By: #### L 501.2300, L100.0100, L501.9520, L501.5200, L500.4050 ####[facility] [address] [place], [address] Monocytes/100 WBC (Bld) 14.7 % High 0-10 [facility] Comment on above: Performed By: #### L 501.2300, L100.0100, L501.9520, L501.5200, L500.4050 ####[facility] [address] [place], [address] Neutrophils/100 WBC (Bld) 67.3 % Normal 47-70 [facility] Comment on above: Performed By: #### L 501.2300, L100.0100, L501.9520, L501.5200, L500.4050 ####[facility] [address] [place], [address] Nucleated RBC (Bld) [#/Vol] 0 10*3/uL Normal 0-5 [facility] Comment on above: Performed By: #### L 501.2300, L100.0100, L501.9520, L501.5200, L500.4050 ####[facility] [address] [place], [address] Platelet mean volume (Bld) [Entitic vol] 11.2 fL Normal 6.2-12.0 [facility] Comment on above: Performed By: #### L 501.2300, L100.0100, L501.9520, L501.5200, L500.4050 ####[facility] [address] [place], [address] Platelets (Bld) [#/Vol] 249 10*3/uL Normal 150-450 [facility] Comment on above: Performed By: #### L 501.2300, L100.0100, L501.9520, L501.5200, L500.4050 ####[facility] [address] [place], [address] RBC (Bld) [#/Vol] 4.05 10*6/uL Low 4.2-5.4 [facility] Comment on above: Performed By: #### L 501.2300, L100.0100, L501.9520, L501.5200, L500.4050 ####[facility] [address] [place], [address] RDW SD 49.1 fl High 35.1-43.9 [facility] Comment on above: Performed By: #### L 501.2300, L100.0100, L501.9520, L501.5200, L500.4050 ####[facility] [address] [place], [address] WBC (Bld) [#/Vol] 6.3 10*3/uL Normal 4.4-11.0 [facility] Comment on above: Performed By: #### L 501.2300, L100.0100, L501.9520, L501.5200, L500.4050 ####[facility] [address] [place], [address] Comprehensive Metabolic [facility] 11-13-2024 Albumin [Mass/Vol] 3.5 g/dL Normal 3.4-4.8 [facility] Comment on above: Performed By: #### L 501.2300, L100.0100, L501.9520, L501.5200, L500.4050 ####[facility] [address] [place], [address] Albumin/Globulin [Mass ratio] 1.7 {ratio} Normal 0.9-2.4 [facility] Comment on above: Performed By: #### L 501.2300, L100.0100, L501.9520, L501.5200, L500.4050 ####[facility] [address] [place], [address] ALK PHOS 422 U/L High 35-104 [facility] Comment on above: Performed By: #### L 501.2300, L100.0100, L501.9520, L501.5200, L500.4050 ####[facility] [address] [place], [address] ALT [Catalytic activity/Vol] 133 U/L High <=34 [facility] Comment on above: Performed By: #### L 501.2300, L100.0100, L501.9520, L501.5200, L500.4050 ####[facility] [address] [place], [address] Anion gap [Moles/Vol] 12 mmol/L Normal 5-15 [facility] Comment on above: Performed By: #### L 501.2300, L100.0100, L501.9520, L501.5200, L500.4050 ####[facility] [address] [place], [address] AST [Catalytic activity/Vol] 462 U/L High <=31 [facility] Comment on above: Performed By: #### L 501.2300, L100.0100, L501.9520, L501.5200, L500.4050 ####[facility] [address] [place], [address] Bilirubin [Mass/Vol] 0.84 mg/dL Normal 0.00-1.30 [facility] Comment on above: Performed By: #### L 501.2300, L100.0100, L501.9520, L501.5200, L500.4050 ####[facility] [address] [place], [address] BUN/CRE 12.3 RATIO Normal 10-20 [facility] Comment on above: Performed By: #### L 501.2300, L100.0100, L501.9520, L501.5200, L500.4050 ####[facility] [address] [place], [address] Calcium [Mass/Vol] 9.9 mg/dL Normal 7.6-11.0 [facility] Comment on above: Performed By: #### L 501.2300, L100.0100, L501.9520, L501.5200, L500.4050 ####[facility] [address] [place], [address] Chloride [Moles/Vol] 105 mmol/L Normal 96-108 [facility] Comment on above: Performed By: #### L 501.2300, L100.0100, L501.9520, L501.5200, L500.4050 ####[facility] [address] [place], [address] CO2 [Moles/Vol] 21.4 mmol/L Low 22.0-29.0 [facility] Comment on above: Performed By: #### L 501.2300, L100.0100, L501.9520, L501.5200, L500.4050 ####[facility] [address] [place], [address] Creatinine [Mass/Vol] 0.8 mg/dL Normal 0.6-1.0 [facility] Comment on above: Performed By: #### L 501.2300, L100.0100, L501.9520, L501.5200, L500.4050 ####[facility] [address] [place], [address] ECRCL 62.02 ml/min Normal [facility] Comment on above: Performed By: #### L 501.2300, L100.0100, L501.9520, L501.5200, L500.4050 ####[facility] [address] [place], [address] GFR/1.73 sq M.predicted among non-blacks MDRD (S/P/Bld) [Vol rate/Area] 74 mL/min/{1.73_m2} Normal >60 [facility] Comment on above: Result Comment: mL/m in/1.73m2 CKD-EPI Creatinine Equation (2020) Performed By: #### L 501.2300, L100.0100, L501.9520, L501.5200, L500.4050 ####[facility] [address] [place], [address] Globulin (S) [Mass/Vol] 2.0 g/dL Low 2.2-4.2 [facility] Comment on above: Performed By: #### L 501.2300, L100.0100, L501.9520, L501.5200, L500.4050 ####[facility] [address] [place], [address] Glucose [Mass/Vol] 90 mg/dL Normal 70-99 [facility] Comment on above: Performed By: #### L 501.2300, L100.0100, L501.9520, L501.5200, L500.4050 ####[facility] [address] [place], [address] Potassium [Moles/Vol] 4.3 mmol/L Normal 3.3-5.1 [facility] Comment on above: Performed By: #### L 501.2300, L100.0100, L501.9520, L501.5200, L500.4050 ####[facility] [address] [place], [address] Sodium [Moles/Vol] 138 mmol/L Normal 133-145 [facility] Comment on above: Performed By: #### L 501.2300, L100.0100, L501.9520, L501.5200, L500.4050 ####[facility] [address] [place], [address] T PROT 5.5 g/dL Low 5.9-8.4 [facility] Comment on above: Performed By: #### L 501.2300, L100.0100, L501.9520, L501.5200, L500.4050 ####[facility] [address] [place], [address] Urea nitrogen [Mass/Vol] 10 mg/dL Normal 4-19 [facility] Comment on above: Performed By: #### L 501.2300, L100.0100, L501.9520, L501.5200, L500.4050 ####[facility] [address] [place], [address] ENTERIC PATHOGEN PANEL STOOL on 11-13-2024 EP PANEL Normal [facility] Comment on above: Performed By: #### M 100.7900, M100.637 ####[facility] [address] [place], [address] Eosinophil percentageOrdered By: Mae Horton on 11-13-2024 Eosinophils/100 WBC (Bld) 0.6 % 0-5 [facility] Immature granulocytes/100 WB C Auto (Bld)Ordered By: Mae Horton on 11-13-2024 Immature granulocytes/100 WBC (Bld) 0.300 % 0.0-0.9 [facility] Comment on above: IG% - Immature Granu locytes (promyelocytes, myelocytes and metamyelocytes) > 1% indicates that a LEFT SHIFT is Present. Laboratory - Chemistry and C hemistry - challengeOrdered By: Mae Horton on 11-13-2024 AST [Catalytic activity/Vol] 462 U/L High <32 [facility] Lymphocytes Auto (Unsp spec) [#/Vol]Ordered By: Mae Horton on 11-13-2024 Lymphocytes (Bld) [#/Vol] 1.02 10*3/uL 0.83-4.51 [facility] Lymphocytes/100 WBC Auto (Un sp spec)Ordered By: Mae Horton on 11-13-2024 Lymphocytes/100 WBC (Bld) 16.3 % Low 19-41 [facility] Magnesiumon 11-13-2024 Magnesium [Mass/Vol] 1.7 mg/dL Normal 1.5-2.2 [facility] Comment on above: Performed By: #### L 501.2300, L100.0100, L501.9520, L501.5200, L500.4050 ####[facility] [address] [place], [address] Magnesium (Unsp spec) [Mass/ Vol]Ordered By: Mae Horton on 11-13-2024 Magnesium [Mass/Vol] 1.7 mg/dL 1.5-2.2 [facility] Magnesium measurement (mass/ volume)Ordered By: Mae Horotn on 11-13-2024 Magnesium (Unsp spec) [Mass/Vol] 1.7 mg/dL 1.5-2.2 [facility] Monocyte percentageOrdered B y: Mae Horton on 11-13-2024 Monocytes/100 WBC (Bld) 14.7 % High 0-10 [facility] Neutrophil percentageOrdered By: Mae Horton on 11-13-2024 Neutrophils/100 WBC (Bld) 67.3 % 47-70 [facility] No Panel InformationOrdered By: Mae Horton on 11-13-2024 462 U/L High <32 [facility] Nucleated red blood cell per centageOrdered By: Mae Horton on 11-13-2024 Nucleated RBC/100 WBC (Bld) [Ratio] 0 % 0-5 [facility] Phosphoruson 11-13-2024 Phosphate [Mass/Vol] 2.9 mg/dL Normal 2.7-4.5 [facility] Comment on above: Performed By: #### L 501.2300, L100.0100, L501.9520, L501.5200, L500.4050 ####[facility] [address] [place], [address] Serum globulin measurementOr dered By: Mae Horton on 11-13-2024 Globulin (S) [Mass/Vol] 2.0 g/dL Low 2.2-4.2 [facility] Serum or plasma alanine encarnacion otransferase (ALT) measurementOrdered By: Mae Horton on 11-13-2024 ALT [Catalytic activity/Vol] 133 U/L High <35 [facility] Serum or plasma albumin jayro urement (mass/volume)Ordered By: Mae Horton on 11-13-2024 Albumin [Mass/Vol] 3.5 g/dL 3.4-4.8 [facility] Serum or plasma albumin/glob ulin mass ratioOrdered By: Mae Horton on 11-13-2024 Albumin/Globulin [Mass ratio] 1.7 {ratio} 0.9-2.4 [facility] Serum or plasma alkaline lukas sphatase measurementOrdered By: Mae Horton on 11-13-2024 ALP [Catalytic activity/Vol] 422 U/L High 35-104 [facility] Serum phosphorus measurement Ordered By: Mae Horton on 11-13-2024 Phosphorus Level 2.9 mg/dL 2.7-4.5 [facility] TSH DL <= 0.005 mIU/L QnOrde red By: Mae Horton on 11-13-2024 Thyroid Stimulating Hormone (TSH) 3.530 uIU/mL 0.300-4.200 [facility] TSH Qn 3.530 uIU/mL 0.300-4.200 [facility] Thyroid Stim Hormone (TSH)on 11-13-2024 TSH 3.530 uIU/mL Normal 0.300-4.200 [facility] Comment on above: Performed By: #### L 501.2300, L100.0100, L501.9520, L501.5200, L500.4050 ####[facility] [address] [place], [address] Total proteinOrdered By: Yamel Horton on 11-13-2024 Protein [Mass/Vol] 5.5 g/dL Low 5.9-8.4 [facility] Abdomen/Pelvis W IV Cont ONL Yon 11-12-2024 Abdomen/Pelvis W IV Cont ONLY Normal [facility] Activated partial thrombopla stin time (aPTT) in platelet poor plasma by coagulation aOrdered By: Austin Mack on 11-12-2024 aPTT Coag (PPP) [Time] 26.4 s 24.1-36.[address] [facility] Bacteria LM.HPF (Urine sed) [#/Area]Ordered By: Austin Mack on 11-12-2024 Urine Bacteria RARE /hpf None Seen [facility] Bilirubin Test strip Ql (U)O rdered By: Austin Mack on 11-12-2024 Bilirubin Ql (U) 1 mg/dL High Negative [facility] Comment on above: COLOR OF URINE MAY A FFECT DIPSTICK RESULTS. CBC W/Diff, Automatedon 10-19 Absolute Lymph 0.81 X10 3/uL Low 0.83-4.51 [facility] Comment on above: Performed By: #### L 300.4310, L300.3900, L500.4050, L100.0100, L501.2450 ####[facility] [address] [place], [address] Absolute Neut 5.9 X10 3/uL Normal 2.0-7.7 [facility] Comment on above: Performed By: #### L 300.4310, L300.3900, L500.4050, L100.0100, L501.2450 ####[facility] [address] [place], [address] Basophils/100 WBC (Bld) 0.8 % Normal 0-1 [facility] Comment on above: Performed By: #### L 300.4310, L300.3900, L500.4050, L100.0100, L501.2450 ####[facility] [address] [place], [address] Eosinophils/100 WBC (Bld) 0.3 % Normal 0-5 [facility] Comment on above: Performed By: #### L 300.4310, L300.3900, L500.4050, L100.0100, L501.2450 ####[facility] [address] [place], [address] Erythrocyte distribution width (RBC) [Ratio] 15.1 % High 11.6-14.6 [facility] Comment on above: Performed By: #### L 300.4310, L300.3900, L500.4050, L100.0100, L501.2450 ####[facility] [address] [place], [address] Hematocrit (Bld) [Volume fraction] 41.0 % Normal 37-47 [facility] Comment on above: Performed By: #### L 300.4310, L300.3900, L500.4050, L100.0100, L501.2450 ####[facility] [address] [place], [address] Hemoglobin (Bld) [Mass/Vol] 13.8 g/dL Normal 12.0-15.0 [facility] Comment on above: Performed By: #### L 300.4310, L300.3900, L500.4050, L100.0100, L501.2450 ####[facility] [address] [place], [address] IG% 0.400 Normal 0.0-0.9 [facility] Comment on above: Result Comment: IG% - Immature Granulocytes (promyelocytes, myelocytes andmetamyelocytes) > 1% indicates that a LEFT SHIFT is Present. Performed By: #### L 300.4310, L300.3900, L500.4050, L100.0100, L501.2450 ####[facility] [address] [place], [address] Lymphocytes/100 WBC (Bld) 10.5 % Low 19-41 [facility] Comment on above: Performed By: #### L 300.4310, L300.3900, L500.4050, L100.0100, L501.2450 ####[facility] [address] [place], [address] MCH (RBC) [Entitic mass] 29.4 pg Normal 27.0-32.0 [facility] Comment on above: Performed By: #### L 300.4310, L300.3900, L500.4050, L100.0100, L501.2450 ####[facility] [address] [place], [address] MCHC (RBC) [Mass/Vol] 33.7 g/dL Normal 32-36 [facility] Comment on above: Performed By: #### L 300.4310, L300.3900, L500.4050, L100.0100, L501.2450 ####[facility] [address] [place], [address] MCV (RBC) [Entitic vol] 87.4 fL Normal 81-99 [facility] Comment on above: Performed By: #### L 300.4310, L300.3900, L500.4050, L100.0100, L501.2450 ####[facility] [address] [place], [address] Monocytes/100 WBC (Bld) 12.3 % High 0-10 [facility] Comment on above: Performed By: #### L 300.4310, L300.3900, L500.4050, L100.0100, L501.2450 ####[facility] [address] [place], [address] Neutrophils/100 WBC (Bld) 75.7 % High 47-70 [facility] Comment on above: Performed By: #### L 300.4310, L300.3900, L500.4050, L100.0100, L501.2450 ####[facility] [address] [place], [address] Nucleated RBC (Bld) [#/Vol] 0 10*3/uL Normal 0-5 [facility] Comment on above: Performed By: #### L 300.4310, L300.3900, L500.4050, L100.0100, L501.2450 ####[facility] [address] [place], [address] Platelet mean volume (Bld) [Entitic vol] 11.6 fL Normal 6.2-12.0 [facility] Comment on above: Performed By: #### L 300.4310, L300.3900, L500.4050, L100.0100, L501.2450 ####[facility] [address] [place], [address] Platelets (Bld) [#/Vol] 326 10*3/uL Normal 150-450 [facility] Comment on above: Performed By: #### L 300.4310, L300.3900, L500.4050, L100.0100, L501.2450 ####[facility] [address] [place], [address] RBC (Bld) [#/Vol] 4.69 10*6/uL Normal 4.2-5.4 [facility] Comment on above: Performed By: #### L 300.4310, L300.3900, L500.4050, L100.0100, L501.2450 ####[facility] [address] [place], [address] RDW SD 48.1 fl High 35.1-43.9 [facility] Comment on above: Performed By: #### L 300.4310, L300.3900, L500.4050, L100.0100, L501.2450 ####[facility] [address] [place], [place], [address] WBC (Bld) [#/Vol] 7.7 10*3/uL Normal 4.4-11.0 [facility] Comment on above: Performed By: #### L 300.4310, L300.3900, L500.4050, L100.0100, L501.2450 ####[facility] [address] [place], [place], [id number] CNOVon 11-12-2024 CNOV Office Visit (FAMPWS) BUSHRA RODRIGEZ ([id number]) 1955 F Date Time Provider Department 11/12/24 8:40 [facility] During your visit today, we recorded the [...] Pain: Continues- PET scan completed yesterday HPI Bushra Rodrigez is a 69 year old female [...] for diarrhea which is not helping. Has Hudson for her back which she has been taking for her abdominal pain without much improvement. Needing to take Hudson more than prescribed. Past medical history, appointments, medications, allergies reviewed. Previous Medical History PAST MEDICAL HISTORY Diagnosis Date Anxiety with depression Chronic back pain Chronic kidney disease (CKD), stage 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 Johnson Dysphagia Dr. Stiles Ectopic 1991 GERD (gastroesophageal reflux disease) History of prediabetes Hyperlipidemia Hypertension Hypothyroidism Obesity (BMI 30.0-34.9) Other pulmonary embolism without acute cor pulmonale (HCC) [facility] Requiring intubation Previous Surgical History PAST [...] Known Problems Brother Stroke Maternal Grandmother or ID, patient unsure Coronary Artery Disease Maternal Grandfather Alcohol abuse Paternal Grandfather Patient Allergies ALLERGIES Allergen Reactions David Inhibitors Rash Codeine Vomiting, Other: See Comments Headache Remeron [Mirtazapin* Other: See Comments Fatigue Zrpfrgr-Uco-Eho Red* Myalgia Merlin Unknown Zetia [Ezetimibe] Myalgia Current Medications Current [...] not taking: Reported on 11/05/2024) mv,jaci,iron,mn/folic acid/chol (HYDS-UJMO-HGRYN, PABA, ORAL) Take 1 tablet by mouth once daily. (Patien (more content not included)... Normal [facility] Metabolic Prof florencia 11-12-2024 Albumin [Mass/Vol] 3.9 g/dL Normal 3.4-4.8 [facility] Comment on above: Performed By: #### L 300.4310, L300.3900, L500.4050, L100.0100, L501.2450 ####[facility] [address] [place], [address] Albumin/Globulin [Mass ratio] 1.3 {ratio} Normal 0.9-2.4 [facility] Comment on above: Performed By: #### L 300.4310, L300.3900, L500.4050, L100.0100, L501.2450 ####[facility] [address], [address] ALK PHOS 494 U/L High 35-104 [facility] Comment on above: Performed By: #### L 300.4310, L300.3900, L500.4050, L100.0100, L501.2450 ####[facility] [address], [address] ALT [Catalytic activity/Vol] 142 U/L High <=34 [facility] Comment on above: Performed By: #### L 300.4310, L300.3900, L500.4050, L100.0100, L501.2450 ####[facility] [address] [place], [address] Anion gap [Moles/Vol] 14 mmol/L Normal 5-15 [facility] Comment on above: Performed By: #### L 300.4310, L300.3900, L500.4050, L100.0100, L501.2450 ####[facility] [address] [place], [address] AST [Catalytic activity/Vol] 529 U/L High <=31 [facility] Comment on above: Performed By: #### L 300.4310, L300.3900, L500.4050, L100.0100, L501.2450 ####[facility] [address] [place], [address] Bilirubin [Mass/Vol] 0.97 mg/dL Normal 0.00-1.30 [facility] Comment on above: Performed By: #### L 300.4310, L300.3900, L500.4050, L100.0100, L501.2450 ####[facility] [address] [place], [address] BUN/CRE 19.5 RATIO Normal 10-20 [facility] Comment on above: Performed By: #### L 300.4310, L300.3900, L500.4050, L100.0100, L501.2450 ####[facility] [address] [place], [address] Calcium [Mass/Vol] 10.5 mg/dL Normal 7.6-11.0 [facility] Comment on above: Performed By: #### L 300.4310, L300.3900, L500.4050, L100.0100, L501.2450 ####[facility] [address] [place], [address] Chloride [Moles/Vol] 102 mmol/L Normal 96-108 [facility] Comment on above: Performed By: #### L 300.4310, L300.3900, L500.4050, L100.0100, L501.2450 ####[facility] [address] [place], [address] CO2 [Moles/Vol] 21.8 mmol/L Low 22.0-29.0 [facility] Comment on above: Performed By: #### L 300.4310, L300.3900, L500.4050, L100.0100, L501.2450 ####[facility] [address] [place], [address] Creatinine [Mass/Vol] 0.9 mg/dL Normal 0.6-1.0 [facility] Comment on above: Performed By: #### L 300.4310, L300.3900, L500.4050, L100.0100, L501.2450 ####[facility] [address] [place], [address] ECRCL 54.07 ml/min Normal [facility] Comment on above: Performed By: #### L 300.4310, L300.3900, L500.4050, L100.0100, L501.2450 ####[facility] [address] [place], [address] GFR/1.73 sq M.predicted among non-blacks MDRD (S/P/Bld) [Vol rate/Area] 68 mL/min/{1.73_m2} Normal >60 [facility] Comment on above: Result Comment: mL/m in/1.73m2 CKD-EPI Creatinine Equation (2020) Performed By: #### L 300.4310, L300.3900, L500.4050, L100.0100, L501.2450 ####[facility] [address] [place], [address] Globulin (S) [Mass/Vol] 3.1 g/dL Normal 2.2-4.2 [facility] Comment on above: Performed By: #### L 300.4310, L300.3900, L500.4050, L100.0100, L501.2450 ####[facility] [address] [place], [address] Glucose [Mass/Vol] 102 mg/dL High 70-99 [facility] Comment on above: Performed By: #### L 300.4310, L300.3900, L500.4050, L100.0100, L501.2450 ####[facility] [address] [place], [address] Potassium [Moles/Vol] 4.4 mmol/L Normal 3.3-5.1 [facility] Comment on above: Performed By: #### L 300.4310, L300.3900, L500.4050, L100.0100, L501.2450 ####[facility] [address] [place], [address] Sodium [Moles/Vol] 137 mmol/L Normal 133-145 [facility] Comment on above: Performed By: #### L 300.4310, L300.3900, L500.4050, L100.0100, L501.2450 ####[facility] [address] [place], [address] T PROT 7.0 g/dL Normal 5.9-8.4 [facility] Comment on above: Performed By: #### L 300.4310, L300.3900, L500.4050, L100.0100, L501.2450 ####[facility] [address] [place], [address] Urea nitrogen [Mass/Vol] 18 mg/dL Normal 4-19 [facility] Comment on above: Performed By: #### L 300.4310, L300.3900, L500.4050, L100.0100, L501.2450 ####[facility] [address] [place], [place], [address] Emergency Department Summary on 11-12-2024 Emergency Department Summary Normal [facility] Epithelial cells.squamous LM Ql (Urine sed)Ordered By: Austin Mack on 11-12-2024 Epithelial cells.squamous LM.HPF (Urine sed) [#/Area] 0 /[HPF] 5-10 [facility] Glucose Ql (U)Ordered By: Kelton Mack on 11-12-2024 Urine Glucose (UA) Normal mg/dl Normal [facility] H AND P Exam - Hospitaliston 11-12-2024 H&P Exam - Hospitalist Normal [facility] International normalized rat io (INR) calculationOrdered By: Austin Mack on 11-12-2024 INR Coag (Bld) [Relative time] 1.1 {INR} [facility] Ketones Test strip Ql (U)Ord ered By: Austin Mack on 11-12-2024 Ketones Ql (U) 5 mg/dl High Negative [facility] Lipaseon 11-12-2024 Lipase [Catalytic activity/Vol] 154 U/L High 13-75 [facility] Comment on above: Result Comment: Elise brunson note:LIPASE revised reference range effective 22.New Lipase methodology. Expected to produce lower valuesthan the previous assay method.NEW Reference Range: 13 - 75 U/L Performed By: #### L 300.4310, L300.3900, L500.4050, L100.0100, L501.2450 ####[facility] [address] [place], [place], [address] Lipase measurementOrdered By : Austin Mack on 11-12-2024 Lipase [Catalytic activity/Vol] 154 U/L High 13-75 [facility] Comment on above: Please note:LIPASE r evised reference range effective 22. New Lipase methodology. Expected to produce lower values than the previous assay method. NEW Reference Range: 13 - 75 U/L Lower GI hemoglobin IA Ql (S tl)Ordered By: Mae Horton on 11-12-2024 Stool Occult Blood (MAXWELL) Positive Abnormal [facility] Microscopic analysis of urin e for red blood cells (RBC)Ordered By: Austin Mack on 11-12-2024 Microscopic analysis of urine for red blood cells (RBC) 0 SEEN /hpf 0-5 [facility] Urine RBC 0 SEEN /hpf 0-5 [facility] Mucus LM Ql (Urine sed)Order ed By: Austin Mack on 11-12-2024 Mucus Ql (Urine sed) 0 SEEN /hpf [facility] Nitrite Test strip Ql (U)Ord ered By: Austin Mack on 11-12-2024 Nitrite Ql (U) Negative Negative [facility] Partial Thromboplast Timeon 11-12-2024 aPTT Coag (Bld) [Time] 26.4 s Normal 24.1-36.[address] [facility] Comment on above: Performed By: #### L 300.4310, L300.3900, L500.4050, L100.0100, L501.2450 ####[facility] [address] [place], [place], [address] Protein Test strip Ql (U)Ord ered By: Austin Mack on 11-12-2024 Protein Ql (U) 30 mg/dl High Negative [facility] Prothrombin Time w/INRon INR Coag (PPP) [Relative time] 1.1 {INR} Normal [facility] Comment on above: Performed By: #### L 300.4310, L300.3900, L500.4050, L100.0100, L501.2450 ####[facility] [address] [place], [address] PT Coag (PPP) [Time] 14.2 s Normal 11.7-14.9 [facility] Comment on above: Performed By: #### L 300.4310, L300.3900, L500.4050, L100.0100, L501.2450 ####[facility] [address] [place], [address] Prothrombin timeOrdered By: Austin Mack on 11-12-2024 PT Coag (PPP) [Time] 14.2 s 11.7-14.9 [facility] Squamous epithelial cells de tection in urine sediment by light microscopyOrdered By: Austin Mack on 11-12-2024 Epithelial cells.squamous LM Ql (Urine sed) 0-5 SEEN /hpf 5-10 [facility] Stool Occult Blood iFOBon STOB Positive Normal [facility] Comment on above: Performed By: #### M 100.7900, M100.637 ####[facility] [address] [place], [place], [id number] Stool enteric pathogen panel by probe and target amplification methodOrdered By: Mae Horton on 11-12-2024 Enteric Bacteriology [facility] Stool gastrointestinal hemog lobin detection by immunologic methodOrdered By: Mae Horton on 11-12-2024 Lower GI hemoglobin IA Ql (Stl) Positive Abnormal [facility] Urinalysis, Completeon 11-12 BACTERIA RARE Normal None Seen [facility] Comment on above: Order Comment: CLEAN CATCH Performed By: #### L 400.0001 ####[facility] [address] [place], [address] EPI,SQUAMOUS 0-5 SEEN Normal 5-10 [facility] Comment on above: Order Comment: CLEAN CATCH Performed By: #### L 400.0001 ####[facility] [address] [place], [place], [id number] RBC 0 SEEN Normal 0-5 [facility] Comment on above: Order Comment: CLEAN CATCH Performed By: #### L 400.0001 ####[facility] [address] [place], [place], [id number] WBC 0-5 SEEN Normal 0-5 [facility] Comment on above: Order Comment: CLEAN CATCH Performed By: #### L 400.0001 ####[facility] [address] [place], [place], [phone] Mucus Ql (Urine sed) 0 SEEN Normal [facility] Comment on above: Order Comment: CLEAN CATCH Performed By: #### L 400.0001 ####[facility] [address] [place], [place], [id number] Urine blood detectionOrdered By: Austin Mack on 11-12-2024 Urine Occult Blood Negative Negative [facility] Urine clarityOrdered By: Stephanie Mack on 11-12-2024 Clarity (U) Clear Clear [facility] Urine color determinationOrd ered By: Austin Mack on 11-12-2024 Color (U) Yellow Yellow [facility] Urine glucose detectionOrder ed By: Austin Mack on 11-12-2024 Glucose Ql (U) Normal mg/dl Normal [facility] Urine leukocyte esterase det ection by dipstickOrdered By: Austin Mack on 11-12-2024 Leukocyte esterase Test strip Ql (U) Negative Negative [facility] Urine pHOrdered By: Austin palumbo on 11-12-2024 pH (U) 6.0 [pH] 5.0 - 8.0 [facility] Urine sediment bacteria coun t by microscopy (number/high power field)Ordered By: Austin Mack on 11-12-2024 Bacteria LM.HPF (Urine sed) [#/Area] RARE /hpf None Seen [facility] Urine specific gravity measu rementOrdered By: Austin Mack on 11-12-2024 Specific gravity (U) [Rel density] 1.015 1.002-1.030 [facility] Urine urobilinogen measureme ntOrdered By: Austin Mack on 11-12-2024 Urobilinogen Ql (U) 1 mg/dl High Normal [facility] Urobilinogen Ql (U)Ordered B y: Austin Mack on 11-12-2024 Urobilinogen (U) [Mass/Vol] 1 mg/dL High Normal [facility] White blood cell countOrdere d By: Austin Frederick on 11-12-2024 Urine WBC 0-5 SEEN /hpf 0-5 [facility] White blood cell count 0-5 SEEN /hpf 0-5 [facility] aPTT Coag (PPP) [Time]Ordere d By: Austin Frederick on 11-12-2024 aPTT Coag (Bld) [Time] 26.4 s 24.1-36.[address] [facility] PET/CT Tumor Base -Thigh Ini ton 11-11-2024 PET/CT Tumor Base -Thigh Init Normal [facility] CNOVSPon 11-05-2024 CNOVSP Visit (SP) Office (PJ) BUSHRA RODRIGEZ ([id number]) 1955 F Date Time Provider Department 11/05/24 9:00 AM SILAS ROBBINS During your visit today, we recorded the following information about you: Temperature Pulse Blood pressure Weight 98.1 degrees 69/minute 138/78 71.9 kg Height 1.61 m Silas Robbins MD 11/05/2024 9:19 AM Signed HISTORY OF PRESENT ILLNESS: Bushra M Elia is a 69 year old female right [...] III (moderate) (HCC) Colon polyp tubular adenoma [address] 07/16 to 08/17 DDD (degenerative disc [...] Known Problems Brother Stroke Maternal Grandmother or ID, patient unsure Coronary Artery Disease Maternal Grandfather [...] Drug use: No ALLERGIES: ALLERGIES Allergen Reactions David Inhibitors Rash Codeine Vomiting, Other: See Comments Headache Remeron [Mirtazapin* Other: See Comments Fatigue Tvzhcmo-Lug-Bvk Red* Myalgia Merlin Unknown Zetia [Ezetimibe] Myalgia CURRENT OUTPATIENT MEDICATIONS: [...] not taking: Reported on 11/05/2024) mv,jaci,iron,mn/folic acid/chol (VNCL-AOXF-PHILT, PABA, ORAL) Take 1 tablet by mouth [...] distress, a (more content not included)... Normal [facility] Alexandrea 11-05-2024 [facility] Telephone (PJ) BUSHRA RODRIGEZ ([id number]) 1955 F Date Time Provider Department 11/05/24 SILAS ROBBINS During your visit today, we recorded the following information about you: Haroon RoyalCady 11/05/2024 1:57 PM Signed RECOMMENDATION/PLAN: 1. Recommend biopsy of liver. Patient wants to think about it, she' ll call or MyChart if she decides to proceed as recommended Allergies As of Date: 11/05/2024 Noted Allergy Reaction DAVID INHIBITORS 10/06/2017 2 - Rash CODEINE 10/06/2017 11 - Vomiting 14 - Other: See Comments Comments: Headache REMERON (MIRTAZAPINE) 01/17/2021 14 - Other: See Comments Comments: Fatigue JVRHHRD-SHD-VXE REDUCTASE INHIBIT*11/14/2017 17 - Myalgia WALNUT 10/06/2017 [...] as needed for pain. - mv,jaci,iron,mn/folic acid/chol (ZLTE-WCOI-ZMTAS, PABA, ORAL) Take 1 tablet by mouth [...] hypertension (HCC) [I27.20] 06/22/2023 Encounter Status:Closed by CADY BRIGGS on 11/13/24 [facility] BUSHRA RODRIGEZ ([id number]) 1955 F Date Time Provider Department 11/04/24 GIRISH LEMOS During your visit today, we recorded the following information about you: Terri Dowell, ROSANA 11/04/2024 12:18 PM Signed Roxann Gomez CNP [facility] calls and is requesting PCP to call her back about patient. Terri Dowell RN Girish Lemos MD 11/04/2024 12:26 PM Signed Call is [...] As of Date: 11/04/2024 Noted Allergy Reaction DAVID INHIBITORS 10/06/2017 2 - Rash CODEINE 10/06/2017 11 - Vomiting 14 - Other: See Comments Comments: Headache REMERON (MIRTAZAPINE) 01/17/2021 14 - Other: See Comments Comments: Fatigue UJEGUDL-PME-WIO REDUCTASE INHIBIT*11/14/2017 17 - Myalgia WALNUT 10/06/2017 16 - Unknown ZETIA (EZETIMIBE) 01/17/2021 17 - Myalgia Date Reviewed: 10/30/2024 Reviewed by: Liane Torres, RT(R) - Fully Assessed Reason for Visit: Return Call Request [[id number]] Prescriptions as of 11/12/2024 - ondansetron orally [...] as needed for pain. - mv,jaci,iron,mn/folic acid/chol (BESG-NZCV-TKXPX, PABA, ORAL) Take 1 tablet by mouth [...] Encounter Status:Closed by TERRI DOWELL on 11/12/24 [facility] [place] 11-03-2024 [facility] Telephone (PJ) BUSHRA RODRIGEZ ([id number]) 1955 F Date Time Provider Department 11/03/24 SILAS ROBBINS During your visit today, we recorded the following information about you: Cady Briggs 11/03/2024 1:45 PM Signed Patient called [...] reschedule after patient has pet scan at [facility]. Daughter states wait until results from [...] As of Date: 11/03/2024 Noted Allergy Reaction DAVID INHIBITORS 10/06/2017 2 - Rash CODEINE 10/06/2017 11 - Vomiting 14 - Other: See Comments Comments: Headache REMERON (MIRTAZAPINE) 01/17/2021 14 - Other: See Comments Comments: Fatigue EWEPYAG-SLY-BBM REDUCTASE INHIBIT*11/14/2017 17 - Myalgia [place]AL[place]UT 10/06/2017 16 - Unknown ZETIA (EZETIMIBE) 01/17/2021 17 - Myalgia Date Reviewed: 10/30/2024 Reviewed by: Liane Trores, RT(R) - Fully Assessed Prescriptions as of [...] as needed for pain. - mv,jaci,iron,mn/folic acid/chol (TSSR-GXZZ-GXEFX, PABA, ORAL) Take 1 tablet by mouth [...] Status:Closed by JOYCE CISNEROS on 11/03/24 Normal [facility] Pulmonary Visit Reporton Pulmonary Visit Report Normal [facility] 10-31-2024 [facility] Telephone (SHIELAWS) BUSHRA RODRGIEZ ([id number]) 1955 F Date Time Provider Department 10/31/24 [facility] During your visit today, we recorded the following information about you: Nallely Ambriz LPN 10/31/2024 12:13 PM Signed Pt called to request a copy of the disk for the CT of chest pt had done 10/30/24. Pt has an apt on 11-21-24 at [facility] with Pulmonology. Pt is trying to get this moved up. Please advise pt when the disk is done. Nallely Ambriz, Delmis Walker, PSS 10/31/2024 4:05 PM Signed CD READ[facility] FOR [facility] SUPERVISOR AT [facility] Pt is aware Allergies As of Date: 10/31/2024 Noted Allergy Reaction DAVID INHIBITORS 10/06/2017 2 - Rash CODEINE 10/06/2017 11 - Vomiting 14 - Other: See Comments Comments: Headache REMERON (MIRTAZAPINE) 01/17/2021 14 - Other: See Comments Comments: Fatigue RGLMERN-RAA-ABV REDUCTASE INHIBIT*11/14/2017 17 - Myalgia WALNUT 10/06/2017 16 - Unknown ZETIA (EZETIMIBE) 01/17/2021 17 - Myalgia Date Reviewed: 10/30/2024 Reviewed by: Liane Torres, RT(R) - Fully Assessed Reason for [...] as needed for pain. - mv,jaci,iron,mn/folic acid/chol (KURJ-RVOL-FIAMZ, PABA, ORAL) Take 1 tablet by mouth [...] hypertension (HCC) [I27.20] 06/22/2023 Encounter Status:Closed by NALLELY AMBRIZ on 11/03/24 [facility] BUSHRA RODRIGEZ ([id number]) 1955 F Date Time Provider Department 10/30/24 [facility] During your visit today, we recorded the following information about you: Poonam Denise, RN 10/30/2024 9:48 AM Signed Patient calling [...] As of Date: 10/30/2024 Noted Allergy Reaction DAVID INHIBITORS 10/06/2017 2 - Rash CODEINE 10/06/2017 11 - Vomiting 14 - Other: See Comments Comments: Headache REMERON (MIRTAZAPINE) 01/17/2021 14 - Other: See Comments Comments: Fatigue SJYSRLM-XBP-VQX REDUCTASE INHIBIT*11/14/2017 17 - Myalgia WALNUT 10/06/2017 16 - Unknown ZETIA (EZETIMIBE) 01/17/2021 17 - Myalgia Date Reviewed: 10/30/2024 Reviewed by: Liane Torres, RT(R) - Fully Assessed Reason for [...] as needed for pain. - mv,jaci,iron,mn/folic acid/chol (JLFK-OEFG-QDLCS, PABA, ORAL) Take 1 tablet by mouth [...] Status:Closed by POONAM DENISE on 10/30/24 Normal [facility] CT CHEST W IVCONon CT CHEST W IVCON * * *Final Report* * * DATE OF EXAM: Oct 30 2024 8:41AM [facility] 0539 - CT CHEST W IVCON / [...] lesion 2. Mediastinal and left hilar lymphadenopathy [place]: [facility] Transcribe Date/Time: Oct 30 2024 9:39A Dictated by : MADHU CORNELL MD This examination was interpreted and the report reviewed and electronically signed by: MADHU CORNELL MD on Oct 30 2024 9:52AM EST [id number] CN Normal [facility] CT Chest W contrast Rosalino IMPRESSION: 1. Irregular left upper lobe perihilar mass which could represent a primary lung malignancy or metastatic lesion 2. Mediastinal and left hilar lymphadenopathy [place]: [facility] Transcribe Date/Time: Oct 30 2024 9:39A Dictated by : MADHU CORNELL MD This examination was interpreted and the report reviewed and electronically signed by: MADHU CORNELL MD on Oct 30 2024 9:52AM [facility] DIVISION OF RADIOLOGY * * *Final Report* * * DATE OF EXAM: Oct 30 2024 8:41AM [facility] 0539 - CT CHEST W IVCON / [...] No additional findings. DIVISION OF RADIOLOGY Provider, [facility] - 10/30/2024 * * *Final Report* * * DATE OF EXAM: Oct 30 2024 8:41AM [facility] 0539 - CT CHEST W IVCON / [...] lesion 2. Mediastinal and left hilar lymphadenopathy [place]: [facility] Transcribe Date/Time: Oct 30 2024 9:39A Dictated by : MADHU CORNELL MD This examination was interpreted and the report reviewed and electronically signed by: MADHU CORNELL MD on Oct 30 2024 9:52AM EST [facility] Radiology Study observation (narrative) [facility] Chest W contrast IVOrdere d By: [facility] Provider on 10-30-2024 [facility] 10-22-2024 CNPN Telephone (FAMPWS) BUSHRA RODRIGEZ ([id number]) 1955 F Date Time Provider Department 10/22/24 [facility] During your visit today, we recorded the following information about you: Phylicia Heredia RN 10/22/2024 3:37 PM Signed Patient calls upset that the CT scan of her chest order has been cancelled four times. Patient requests order be sent to [facility] to see if they can see her any sooner that [facility]. Faxed per request to [phone]. Submitted PA to [employer] [facility] [employer]. Phylicia Heredia RN Allergies As of Date: 10/22/2024 Noted Allergy Reaction DAVID INHIBITORS 10/06/2017 2 - Rash CODEINE 10/06/2017 11 - Vomiting 14 - Other: See Comments Comments: Headache REMERON (MIRTAZAPINE) 01/17/2021 14 - Other: See Comments Comments: Fatigue GAYQTEY-QPW-SEQ REDUCTASE INHIBIT*11/14/2017 17 - Myalgia WALNUT 10/06/2017 [...] as needed for pain. - mv,jaci,iron,mn/folic acid/chol (JLPG-TLHN-KIXVI, PABA, ORAL) Take 1 tablet by mouth [...] Status:Closed by PHYLICIA HEREDIA on 10/22/24 Normal [facility] CNPNon 10-20-2024 CNPN Telephone (FAMWS) BUSHRA RODRIGEZ ([id number]) 1955 F Date Time Provider Department 10/20/24 [...] AM Signed Pt notified of results via [employer]. Mae Wong Ma Allergies As of Date: 10/20/2024 Noted Allergy Reaction DAVID INHIBITORS 10/06/2017 2 - Rash CODEINE 10/06/2017 11 - Vomiting 14 - Other: See Comments Comments: Headache REMERON (MIRTAZAPINE) 01/17/2021 14 - Other: See Comments Comments: Fatigue RLVWDLX-EGN-IVQ REDUCTASE INHIBIT*11/14/2017 17 - Myalgia [place]UT 10/06/2017 [...] as needed for pain. - mv,jaci,iron,mn/folic acid/chol (UYLI-KIVP-NVIXE, PABA, ORAL) Take 1 tablet by mouth [...] Encounter Status:Closed by MAE WONG on 10/20/24 [facility] CNP Telephone (HEMAWS) BUSHRA RODRIGEZ ([id number]) 1955 F Date Time Provider Department 10/20/24 [...] She is aware of the appointment. BETTYE SantosCady 10/31/2024 2:37 PM Signed Appointment scheduled. Allergies As of Date: 10/20/2024 Noted Allergy Reaction DAVID INHIBITORS 10/06/2017 2 - Rash CODEINE 10/06/2017 11 - Vomiting 14 - Other: See Comments Comments: Headache REMERON (MIRTAZAPINE) 01/17/2021 14 - Other: See Comments Comments: Fatigue AGMZIRJ-DVG-LPJ REDUCTASE INHIBIT*11/14/2017 17 - Myalgia WAL[place]UT 10/06/2017 [...] as needed for pain. - mv,jaci,iron,mn/folic acid/chol (XZJG-LWYR-BUHNE, PABA, ORAL) Take 1 tablet by mouth [...] Status:Closed by JOYCE CISNEROS on 10/31/24 Normal [facility] AFP SerPl-mCncon 10-17-2024 AFP [Mass/Vol] 6.52 ng/mL Normal <9.00 [facility] Comment on above: Order Comment: Speci men Type: BLOOD SPECIMENOrdering Facility: [facility] Address: [address] [place] [address] Result Comment: The Alpha-Fetoprotein test was performed using the Juan Jose Cordiael DxI immunoenzymatic assay. Results obtained with different assay methods or kits cannot be used interchangeably. Performed By: #### 1 834-1 ####[facility] [id number] [address] [place] CNOVon 10-17-2024 CNOV Office Visit (FAMPWS) BUSHRA RODRIGEZ ([id number]) 1955 F Date Time Provider Department 10/17/24 1:00 PM GIRISH LEMOS During your visit today, we recorded the following information about you: Temperature Pulse Respiration Blood pressure 97.8 degrees 67/minute 12/minute 118/70 Weight Height 73.5 kg 1.6 m Girish Lemos MD 10/17/2024 3:26 PM Signed Chief Complaint Patient presents with: Follow Up: discuss lab results and care plan, diarrhea x 3 days HPI Bushra Rodrigez is a 68 year old female [...] pain, currently 5/10. Treating at home with [place] which Dr. 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 Johnson Dysphagia Dr. Stiles Ectopic 1991 GERD (gastroesophageal reflux disease) History of prediabetes Hyperlipidemia Hypertension Hypothyroidism Obesity (BMI 30.0-34.9) Other pulmonary embolism without acute cor pulmonale (HCC) Pneum[facility] virus Requiring intubation Previous Surgical History PAST [...] Cancer Brother lung Stroke Maternal Grandmother or ID, patient unsure Coronary Artery Disease Maternal Grandfather No Known Problems Sister Patient Allergies ALLERGIES Allergen Reactions David Inhibitors Rash Codeine Vomiting, Other: See Comments Headache Remeron [Mirtazapin* Other: See Comments Fatigue Kexdcre-Yjr-Eax Red* Myalgia Merlin Unknown Zetia [Ezetimibe] Myalgia Current Medications Current [...] nebulizer every (more content not included)... Normal [facility] CNPSandra 10-17-2024 CNPN Telephone (DEEPTIWST) BUSHRA RODRIGEZ ([id number]) 1955 F Date Time Provider Department 10/17/24 MAHNAZ BELLAMY During your visit today, we recorded the following information about you: Mahnaz Bellamy MSW 10/17/2024 3:56 PM Signed Sw spoke with patient regarding transportation needs. Patient reports that she does live in [place]. Her spouse takes her to doctor appts, he is just not able to drive early in the morning or late at night, due to vision issues. Patient reports I do think that my Medicare Advantage plan has transportation. Patient will give her insurance a call to discuss transportation and see if she has that as a benefit. Patient and Sw also discussed [employer] [place] [facility]. Sw provided patient with the number for [employer]. [employer] coordinates local churches in [place] to address needs of residents. Patient notes that she will check with [employer] if insurance is unable to provide transportation [...] As of Date: 10/17/2024 Noted Allergy Reaction DAVID INHIBITORS 10/06/2017 2 - Rash CODEINE 10/06/2017 11 - Vomiting 14 - Other: See Comments Comments: Headache REMERON (MIRTAZAPINE) 01/17/2021 14 - Other: See Comments Comments: Fatigue FSMZMGQ-WJA-OUC REDUCTASE INHIBIT*11/14/2017 17 - Myalgia [place]AL[place]UT 10/06/2017 [...] as needed for pain. - mv,jaci,iron,mn/folic acid/chol (CXEA-AZKO-ZRBNJ, PABA, ORAL) Take 1 tablet by mouth [...] hypertension (HCC) [I27.20] 06/22/2023 Encounter Status:Closed by MAHNAZ BELLAMY on 10/20/24 Normal [facility] HAV IgM Ser Qlon 10-17-2024 HAV IgM Ql (S) Negative Normal Negative [facility] Comment on above: Order Comment: Speci men Type: BLOOD SPECIMEN [facility] Address: [address] [place] [address] Result Comment: No e vidence of recent infection with Hepatitis A virus. Performed By: #### 2 2314-9, 56797-6, 5194-3 #### [facility] CLIA [id number] [address] [place] [address] [place] HBV core IgM Ser Qlon 2024 HBV core IgM Ql (S) Negative Normal Negative [facility] Comment on above: Order Comment: Speci men Type: BLOOD SPECIMEN [facility] Address: [address] [place] [address] Result Comment: No e vidence of recent infection with Hepatitis B virus. Should recent infection be suspected, repeat testing may be considered 3-4 weeks after this draw. Performed By: #### 2 2314-9, 56727-9, 3 #### [facility] CLIA [id number] [address] [place] [address] [place] HBV surface Ag Ser Qlon 09-19 HBV surface Ag Ql (S) Negative Normal Negative [facility] Comment on above: Order Comment: Speci men Type: BLOOD SPECIMEN [facility] Address: [address] [place] [address] Performed By: #### 2 2314-9, 92768-8, 3 #### [facility] CLIA [id number] [address] [place] [address] [place] HCV Ab Ser Qlon 10-17-2024 HCV Ab Ql (S) Negative Normal Negative [facility] Comment on above: Order Comment: Speci men Type: BLOOD SPECIMENOrdering Facility: [facility] Address: [facility] [place] [address] Result Comment: The result suggests no evidence of active infection with Hepatitis C virus. Should recent infection be suspected, repeat testing may be considered 4-6 weeks after this draw. Performed By: #### 1 6128-1 ####[facility] LABCLIA [id number] [address] [place] Amylase SerPl-cCncon 025 Amylase [Catalytic activity/Vol] 77 U/L Normal 30-104 [facility] Comment on above: Order Comment: Speci men Type: BLOOD SPECIMENOrdering Facility: [facility] Address: [address] [place] [address] Performed By: #### 2 4323-8 ####[facility] [id number] [address] [place]#### 1798-8, 3040-3 ####[facility] LABCLIA [id number] [address] [place] CBC W Auto Differential pane l (Bld)on 10-16-2024 Basophils (Bld) [#/Vol] 0.07 10*3/uL [facility] Basophils/100 WBC (Bld) 1.5 % [facility] Differential cell count method Nom (Bld) Auto [facility] Eosinophils (Bld) [#/Vol] 0.08 10*3/uL [facility] Eosinophils/100 WBC (Bld) 1.7 % [facility] Erythrocyte distribution width (RBC) [Ratio] 13.2 % 11.5 - 15.0 % [facility] Hematocrit (Bld) [Volume fraction] 42.8 % 36.0 - 46.0 % [facility] Hemoglobin (Bld) [Mass/Vol] 14.3 g/dL 11.5 - 15.5 g/dL [facility] Immature granulocytes (Bld) [#/Vol] [facility] Immature granulocytes/100 WBC (Bld) 0.2 % [facility] Lymphocytes (Bld) [#/Vol] 1.31 10*3/uL [facility] Lymphocytes/100 WBC (Bld) 27.6 % [facility] MCH (RBC) [Entitic mass] 29.1 pg 26. 0 - 34.0 pg [facility] MCHC (RBC) [Mass/Vol] 33.4 g/dL 30.5 - 36.0 g/dL [facility] MCV (RBC) [Entitic vol] 87.2 fL 80.0 - 100.0 fL [facility] Monocytes (Bld) [#/Vol] 0.66 10*3/uL [facility] Monocytes/100 WBC (Bld) 13.9 % [facility] Neutrophils (Bld) [#/Vol] 2.61 10*3/uL [facility] Neutrophils/100 WBC (Bld) 55.1 % [facility] Nucleated RBC (Bld) [#/Vol] [facility] Nucleated RBC/100 WBC (Bld) [Ratio] 0.0 % /100 WBC [facility] Platelet mean volume (Bld) [Entitic vol] 11.5 fL 9.0 - 12.7 fL [facility] Platelets (Bld) [#/Vol] 318 10*3/uL [facility] RBC (Bld) [#/Vol] 4.91 10*6/uL 3.90 - 5.2 0 m/uL [facility] WBC (Bld) [#/Vol] 4.74 10*3/uL [facility] Basophils (Bld) [#/Vol] 0.07 10*3/uL Normal <0.11 [facility] Comment on above: Order Comment: Speci men Type: BLOOD SPECIMENOrdering Facility: [facility] Address: [address] [place] [address] Performed By: #### 5 7021-8 ####[facility] [id number] [address] [place] Basophils/100 WBC (Bld) 1.5 % Normal C [facility] Comment on above: Order Comment: Speci men Type: BLOOD SPECIMENOrdering Facility: [facility] Address: [address] [place] [address] Performed By: #### 5 7021-8 ####[facility]ITAL[facility] [id number] [place] [address] [place] Differential cell count method Nom (Bld) Auto Normal [facility] Comment on above: Order Comment: Speci men Type: BLOOD SPECIMENOrdering Facility: [facility] Address: [address] [place] [address] Performed By: #### 5 7021-8 ####[facility] [id number] [place] [address] [place] Eosinophils (Bld) [#/Vol] 0.08 10*3/uL Normal <0.46 [facility] Comment on above: Order Comment: Speci men Type: BLOOD SPECIMENOrdering Facility: [facility] Address: [address] [place] [address] Performed By: #### 5 7021-8 ####[facility] [id number] [place] [address] [place] Eosinophils/100 WBC (Bld) 1.7 % Normal [facility] Comment on above: Order Comment: Speci men Type: BLOOD SPECIMENOrdering Facility: [facility] Address: [address] [place] [address] Performed By: #### 5 7021-8 ####[facility] [id number] [place] [address] [place] Erythrocyte distribution width (RBC) [Ratio] 13.2 % Normal 11.5-15.0 [facility] Comment on above: Order Comment: Speci men Type: BLOOD SPECIMENOrdering Facility: [facility] Address: [address] [place] [address] Performed By: #### 5 7021-8 ####[facility] [id number] [place] [address] [place] Hematocrit (Bld) [Volume fraction] 42.8 % Normal 36.0-46.0 [facility] Comment on above: Order Comment: Speci men Type: BLOOD SPECIMENOrdering Facility: [facility] Address: [address] [place] [address] Performed By: #### 5 7021-8 ####[facility] [id number] [place] [address] [place] Hemoglobin (Bld) [Mass/Vol] 14.3 g/dL Normal 11.5-15.5 [facility] Comment on above: Order Comment: Speci men Type: BLOOD SPECIMENOrdering Facility: [facility] Address: [address] [place] [address] Performed By: #### 5 7021-8 ####[facility] [id number] [place] [address] [place] Immature granulocytes (Bld) [#/Vol] 10*3/uL Normal <0.10 [facility] Comment on above: Order Comment: Speci men Type: BLOOD SPECIMENOrdering Facility: [facility] Address: [address] [place] [address] Performed By: #### 5 7021-8 ####[facility] [id number] [place] [address] [place] Immature granulocytes/100 WBC (Bld) 0.2 % Normal [facility] Comment on above: Order Comment: Speci men Type: BLOOD SPECIMENOrdering Facility: [facility] Address: [address] [place] [address] Performed By: #### 5 7021-8 ####[facility] [id number] [place] [address] [place] Lymphocytes (Bld) [#/Vol] 1.31 10*3/uL Normal 1.00-4.00 [facility] Comment on above: Order Comment: Speci men Type: BLOOD SPECIMENOrdering Facility: [facility] Address: [address] [place] [address] Performed By: #### 5 7021-8 ####[facility] [id number] [place] [address] [place] Lymphocytes/100 WBC (Bld) 27.6 % Normal [facility] Comment on above: Order Comment: Speci men Type: BLOOD SPECIMENOrdering Facility: [facility] Address: [address] [place] [address] Performed By: #### 5 7021-8 ####[facility] [id number] [place] [address] [place] MCH (RBC) [Entitic mass] 29.1 pg Normal 26.0-34.0 [facility] Comment on above: Order Comment: Speci men Type: BLOOD SPECIMENOrdering Facility: [facility] Address: [address] [place] [address] Performed By: #### 5 7021-8 ####[facility] [id number] [place] [address] [place] MCHC (RBC) [Mass/Vol] 33.4 g/dL Normal 30.5-36.0 [facility] Comment on above: Order Comment: Speci men Type: BLOOD SPECIMENOrdering Facility: [facility] Address: [address] [place] [address] Performed By: #### 5 7021-8 ####[facility]ITALNCLI [id number] [place] [address] [place] MCV (RBC) [Entitic vol] 87.2 fL Normal 80.0-100.0 [facility] Comment on above: Order Comment: Speci men Type: BLOOD SPECIMENOrdering Facility: [facility] Address: [address] [place] [address] Performed By: #### 5 7021-8 ####[facility] MILLWNCLIA [id number] [place] [address] [place] Monocytes (Bld) [#/Vol] 0.66 10*3/uL Normal <0.87 [facility] Comment on above: Order Comment: Speci men Type: BLOOD SPECIMENOrdering Facility: [facility] Address: [address] [place] [address] Performed By: #### 5 7021-8 ####[facility] CENTERLIA [id number] [place] [address] [place] Monocytes/100 WBC (Bld) 13.9 % Normal [facility] Comment on above: Order Comment: Speci men Type: BLOOD SPECIMENOrdering Facility: [facility] Address: [address] [place] [address] Performed By: #### 5 7021-8 ####[facility] [id number] [place] [address] [place] Neutrophils (Bld) [#/Vol] 2.61 10*3/uL Normal 1.45-7.50 [facility] Comment on above: Order Comment: Speci men Type: BLOOD SPECIMENOrdering Facility: [facility] Address: [address] [place] [address] Performed By: #### 5 7021-8 ####[facility] CENTERLIA [id number] [place] [address] [place] Neutrophils/100 WBC (Bld) 55.1 % Normal [facility] Comment on above: Order Comment: Speci men Type: BLOOD SPECIMENOrdering Facility: [facility] Address: [address] [place] [address] Performed By: #### 5 7021-8 ####[facility]ENTERLIA [id number] [place] [address] [place] Nucleated RBC (Bld) [#/Vol] 10*3/uL Normal <0.01 [facility] Comment on above: Order Comment: Speci men Type: BLOOD SPECIMENOrdering Facility: [facility] Address: [address] [place] [address] Performed By: #### 5 7021-8 ####[facility] [id number] [place] [address] [place] Nucleated RBC/100 WBC (Bld) [Ratio] 0.0 /100 WBC Normal [facility] Comment on above: Order Comment: Speci men Type: BLOOD SPECIMENOrdering Facility: [facility] Address: [address] [place] [address] Performed By: #### 5 7021-8 ####[facility] [id number] [place] [address] [place] Platelet mean volume (Bld) [Entitic vol] 11.5 fL Normal 9.0-12.7 [facility] Comment on above: Order Comment: Speci men Type: BLOOD SPECIMENOrdering Facility: [facility] Address: [address] [place] [address] Performed By: #### 5 7021-8 ####[facility] [id number] [place] [address] [place] Platelets (Bld) [#/Vol] 318 10*3/uL Normal 150-400 [facility] Comment on above: Order Comment: Speci men Type: BLOOD SPECIMENOrdering Facility: [facility] Address: [address] [place] [address] Performed By: #### 5 7021-8 ####[facility] [id number] [place] [address] [place] RBC (Bld) [#/Vol] 4.91 10*6/uL Normal 3.90-5.20 [facility] Comment on above: Order Comment: Speci men Type: BLOOD SPECIMENOrdering Facility: [facility] Address: [address] [place], [place] [address] Performed By: #### 5 7021-8 ####[facility] SAMMYROMANCENCLIA [id number] [place] [address] [place] WBC (Bld) [#/Vol] 4.74 10*3/uL Normal 3.70-11.00 [facility] Comment on above: Order Comment: Speci men Type: BLOOD SPECIMENOrdering Facility: [facility] Address: [address] [place], [place] [address] Performed By: #### 5 7021-8 ####[facility] SAMMYROMANCENCLIA [id number] [address] [place] CNOVon 10-16-2024 CNOV Office Visit (SHIELAWS) BUSHRA RODRIGEZ ([id number]) 1955 F Date Time Provider Department 10/16/24 8:40 AM OLEG FIELDS During your visit today, we recorded the following information about you: Pulse Respiration Blood pressure Weight 74/minute 14/minute 144/80 73.9 kg Oleg Fields, POSITION CLASSIFICATION SPECIALIST.PRIMING POWDER PREMIX BLENDER 10/16/2024 8:53 AM Signed Chief Complaint Patient presents with: Abdominal Pain: X 1 month HPI Bushra Marta Rodrigez is a 68 year old female [...] 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 Johnson Dysphagia Dr. Stiles Ectopic 1991 GERD (gastroesophageal reflux disease) History of prediabetes Hyperlipidemia Hypertension Hypothyroidism Obesity (BMI 30.0-34.9) Other pulmonary embolism without acute cor pulmonale (HCC) Pneumonia due to [facility]- virus Requiring intubation Previous Surgical History PAST [...] Cancer Brother lung Stroke Maternal Grandmother or ID, patient unsure Coronary Artery Disease Maternal Grandfather No Known Problems Sister Patient Allergies ALLERGIES Allergen Reactions David Inhibitors Rash Codeine Vomiting, Other: See Comments Headache Remeron [Mirtazapin* Other: See Comments Fatigue Jrflion-Bmu-Uic Red* Myalgia Merlin Unknown Zetia [Ezetimibe] Myalgia Current Medications Current [...] hours as needed for pain. mv,jaci,iron,mn/folic acid/chol ([id number]-[id number], PABA, ORAL) Take 1 tablet by mouth [...] 05/18/2024 Advance (more content not included)... Normal [facility] Alexandrea 10-16-2024 [facility]WS[facility] BUSHRA RODRIGEZ ([id number]) 1955 F Date Time Provider Department 10/16/24 OLEG FIELDS During your visit today, we recorded the following information about you: Oleg Fields APRN.PRIMING POWDER PREMIX BLENDER 10/16/2024 1:38 PM Signed Please call patient and schedule follow up with Dr. Lemos for tomorrow to discuss results and care plan. Also let patient know I have ordered follow up labs. Arin Muñoz MA 10/16/2024 3:00 PM Signed Pt notified and scheduled for a follow up tomorrow MELVA Mcfarlane Danielle, APRN.PRIMING POWDER PREMIX BLENDER 10/20/2024 10:20 AM Signed Please let patient know her hepatitis panel is negative. Mae Wong MA 10/20/2024 10:40 AM Signed Pt notified of results via [employer]. Mae Wong Ma Allergies As of Date: 10/16/2024 Noted Allergy Reaction DAVID INHIBITORS 10/06/2017 2 - Rash CODEINE 10/06/2017 11 - Vomiting 14 - Other: See Comments Comments: Headache REMERON (MIRTAZAPINE) 01/17/2021 14 - Other: See Comments Comments: Fatigue UILUCIX-ZNG-UPN REDUCTASE INHIBIT*11/14/2017 17 - Myalgia WALNUT 10/06/2017 16 - Unknown ZETIA (EZETIMIBE) 01/17/2021 17 - Myalgia Date Reviewed: 10/16/2024 Reviewed by: Liane Torres, RT(R) - Fully Assessed Reason for Visit: Results [95] Primary Visit Diagnosis:Abnormal MRI, liver [R93.2] Order(s):CONSULT TO HEPATOLOGY [[id number]] Order #: [id number]: 1 FUTURE IR INTERVENTIONAL RADIOLOGY CONSULT [[id number]] Order #: [id number] HEP ACUTE PANEL BL [SQHACUTP] Order #: [id number] FUTURE Prescriptions as of 10/20/2024 - ondansetron [...] as needed for pain. - mv,jaci,iron,mn/folic acid/chol ([id number]-[id number]-FHSEV, PABA, ORAL) Take 1 tablet by mouth [...] Status:Closed by MAE WONG on 10/20/24 Normal [facility] CT ABD/PEL W IVCONon 025 CT ABD/PEL W IVCON * * *Final Report* * * DATE OF EXAM: Oct 16 2024 11:11AM [facility] 0530 - CT ABD/PEL W IVCON / [...] be communicated with the ordering provider via [employer] staff message or phone message by [employer] within 2 business days of report finalization. --END OF FINDING-- Algorithms for management of incidental imaging findings can be found on the [facility] Intranet Sharepoint site at: [email or web address] [email or web address] [email or web address]%20Inc idental%20Findi ngs%20at%20Imaging/F orms/AllItems.aspx S[employer] Soak: CHRISTY Transcribe Date/Time: Oct 16 2024 11:46A Dictated by : GRAHAM BUSTILLO MD This examination was interpreted and the report reviewed and electronically signed by: GRAHAM BUSTILLO MD on Oct 16 2024 11:58AM EST [id number] CN ACTIONABLE Invalid Interpretation Code [facility] CT Abdomen and Pelvis W cont rast IVOrdered By: [facility] Provider on 10-16-2024 Radiology Result ACTIONABLE Abnormal [facility] Comment on above: This report contains an [...] contact your provider for the next steps. [facility] CT Abdomen and Pelvis W cont rast [...] be communicated with the ordering provider via [employer] staff message or phone message by [facility] [employer] [facility] within 2 business days of report finalization. --END OF FINDING-- Algorithms for management of incidental imaging findings can be found on the [facility] Intranet Sharepoint site at: [email or web address] [email or web address] links/Managing%20Inc idental%20Findi ngs%20at%20Imaging/F orms/AllItems.aspx Sagger Soak: CHRISTY Transcribe Date/Time: Oct 16 2024 11:46A Dictated by : GRAHAM BUSTILLO MD This examination was interpreted and the report reviewed and electronically signed by: GRAHAM BUSTILLO MD on Oct 16 2024 11:58AM [facility] DIVISION OF RADIOLOGY * * *Final Report* * * DATE OF EXAM: Oct 16 2024 11:11AM [facility] 0530 - CT ABD/PEL W IVCON / [...] No additional findings. DIVISION OF RADIOLOGY Provider, [facility] [place] - 10/16/2024 * * *Final Report* * * DATE OF EXAM: Oct 16 2024 11:11AM [facility] 0530 - CT ABD/PEL W IVCON / [...] be communicated with the ordering provider via [employer] staff message or phone message by [facility] [employer] [facility] within 2 business days of report finalization. --END OF FINDING-- Algorithms for management of incidental imaging findings can be found on the [facility] Intranet Sharepoint site at: [email or web address] [email or web address] [email or web address]%20Inc idental%20Findi ngs%20at%20Imaging/F orms/AllItems.aspx [employer] Soak: CHRISTY Transcribe Date/Time: Oct 16 2024 11:46A Dictated by : GRAHAM BUSTILLO MD This examination was interpreted and the report reviewed and electronically signed by: GRAHAM BUSTILLO MD on Oct 16 2024 11:58AM EST [facility] Radiology Study observation (narrative) [facility] Comprehensive metabolic 2000 panelOrdered By: Jeanette Streeter on 10-16-2024 Albumin [Mass/Vol] 4.3 g/dL 3.9 - 4.9 g/dL [facility] ALP [Catalytic activity/Vol] 128 U/L High 34 - 123 U/L [facility] ALT [Catalytic activity/Vol] 43 U/L High 7 - 38 U/L [facility] Anion gap [Moles/Vol] 7 mmol/L Low 8 - 15 mmol/L [facility] AST [Catalytic activity/Vol] 117 U/L High 13 - 35 U/L [facility] Bilirubin [Mass/Vol] 0.4 mg/dL 0.2 - 1 .3 mg/dL [facility] Calcium [Mass/Vol] 10.6 mg/dL High 8.5 - 10. 2 mg/dL [facility] Chloride [Moles/Vol] 106 mmol/L 98 - 10 7 mmol/L [facility] CO2 [Moles/Vol] 27 mmol/L 22 - 30 mmol/L [facility] Creatinine [Mass/Vol] 0.86 mg/dL 0.58 - 0.96 mg/dL [facility] GFR/1.73 sq M.predicted among non-blacks MDRD (S/P/Bld) [Vol rate/Area] 73 mL/min/{1.73_m2} - PINF [facility] Comment on above: Estimated Glomerular Filtration Rate [...] 108 mg/dL High 74 - 99 mg/dL [facility] Comment on above: The [place] Diabete s Association (ADA) provides guidance for [...] Standards of Medical Care in Diabetes 2016, [place] [employer]. Diabetes Care. 2016.39(Suppl 1). Potassium [Moles/Vol] 4.3 mmol/L 3.7 - 5.1 mmol/L [facility] Protein [Mass/Vol] 7.3 g/dL 6.3 - 8.0 g/dL [facility] Sodium [Moles/Vol] 140 mmol/L 136 - 144 mmol/L [facility] Urea nitrogen [Mass/Vol] 16 mg/dL 7 - 21 mg/d L [facility] Comprehensive metabolic 2000 panelon 10-16-2024 Albumin [Mass/Vol] 4.3 g/dL Normal 3.9-4.9 [facility] Comment on above: Order Comment: Speci men Type: BLOOD SPECIMENOrdering Facility: [facility] Address: [address] [place] [address] Performed By: #### 2 4323-8 ####[facility] [id number] [place] [address] [place]#### 1798-8, 3040-3 ####[facility] LABIA [id number] [place] [address] [place] ALP [Catalytic activity/Vol] 128 U/L High 34-123 [facility] Comment on above: Order Comment: Changi men Type: BLOOD SPECIMENOrdering Facility: [facility] Address: [address] [place] [address] Performed By: #### 2 4323-8 ####[facility] [id number] [place] [address] [place]#### 1798-8, 3040-3 ####[facility] LABCLIA [id number] [place] [address] [place] ALT [Catalytic activity/Vol] 43 U/L High 7-38 [facility] Comment on above: Order Comment: Speci men Type: BLOOD SPECIMENOrdering Facility: [facility] Address: [address] [place], [place] [address], [place] [address] Performed By: #### 2 4323-8 ####[facility]ITALNCLIA [id number] [place] [address] [place]#### 1798-8, 3040-3 ####[facility] LABCLIA [id number] [place] [address] [place] Anion gap [Moles/Vol] 7 mmol/L Low 8-15 [facility] Comment on above: Order Comment: Speci men Type: BLOOD SPECIMENOrdering Facility: [facility] Address: [address] [place] [address] Performed By: #### 2 4323-8 ####[facility] CENTERLIA [id number] [place] [address] [place]#### 1798-8, 3040-3 ####[facility] LABCLIA [id number] [place] [address] [place] AST [Catalytic activity/Vol] 117 U/L High 13-35 [facility] Comment on above: Order Comment: Speci men Type: BLOOD SPECIMENOrdering Facility: [facility] Address: [address] [place] [address] Performed By: #### 2 4323-8 ####[facility] CENTERLIA [id number] [place] [address] [place]#### 1798-8, 3040-3 ####[facility] LABCLIA [id number] [place] [address] [place] Bilirubin [Mass/Vol] 0.4 mg/dL Normal 0.2-1.3 [facility] Comment on above: Order Comment: Speci men Type: BLOOD SPECIMENOrdering Facility: [facility] Address: [address] [place] [address] Performed By: #### 2 4323-8 ####[facility] MILLTOWNCLIA [id number] [place] [address] [place]#### 1798-8, 3040-3 ####[facility] LABCLIA [id number] [address] [address] [place] Calcium [Mass/Vol] 10.6 mg/dL High 8.5-10.2 [facility] Comment on above: Order Comment: Speci men Type: BLOOD SPECIMENOrdering Facility: [facility] Address: [address] [place] [address] Performed By: #### 2 4323-8 ####[facility] POINTWNCLIA [id number] [place] [address] [place]#### 1798-8, 0-3 ####[facility] LABCLIA [id number] [place] [address] [place] Chloride [Moles/Vol] 106 mmol/L Normal 98-107 [facility] Comment on above: Order Comment: Speci men Type: BLOOD SPECIMENOrdering Facility: [facility] Address: [address] [place] [address] Performed By: #### 2 4323-8 ####[facility] MILLTOWNCLIA [id number] [place] [address] [place]#### 1798-8, 0-3 ####[facility] LABCLIA [id number] [place] [address] [place] CO2 [Moles/Vol] 27 mmol/L Normal 22-30 [facility] Comment on above: Order Comment: Speci men Type: BLOOD SPECIMENOrdering Facility: [facility] Address: [address] [place] [address] Performed By: #### 2 4323-8 ####[facility] POINTWNCLIA [id number] [place] [address] [place]#### 1798-8, 3039-3 ####[facility] LABCLIA [id number] [place] [address] [place] Creatinine [Mass/Vol] 0.86 mg/dL Normal 0.58-0.96 [facility] Comment on above: Order Comment: Speci men Type: BLOOD SPECIMENOrdering Facility: [facility] Address: [address] [place] [address] Performed By: #### 2 4323-8 ####[facility] HOS[facility]ITALNCLIA [id number] [place] [address] [place]#### 1798-8, 3 ####[facility] LABCLIA [id number] [address] STATES [facility] Creatinine and Glomerular filtration rate.predicted panel (S/P/Bld) 73 mL/min/1.73m??? Normal >=60 [facility] Comment on above: Order Comment: Speci men Type: BLOOD SPECIMENOrdering Facility: [facility] Address: [address] [place] [address] Result Comment: Jazlyn mated Glomerular Filtration Rate [...] actual GFR. Performed By: #### 2 4323-8 ####[facility]INTWNCLIA [id number] [place] [address] [place]#### 1798-8, 3039-3 ####[facility] LABCLIA [id number] [place] [address] [place] Glucose [Mass/Vol] 108 mg/dL High 74-99 [facility] Comment on above: Order Comment: Speci men Type: BLOOD SPECIMENOrdering Facility: [facility] Address: [address] [place] [address] Result Comment: The [place] Diabetes Association (ADA) provides guidance for cutoff [...] Standards of Medical Care in Diabetes 2016, [place] Diabetes [employer]. Diabetes Care. 2016.39(Suppl 1). Performed By: #### 2 4323-8 ####[facility] MILLTOWNCLIA [id number] [place] [address] [place]#### 1798-8, 3040-3 ####[facility] LABCLIA [id number] [place] [address] [place] Potassium [Moles/Vol] 4.3 mmol/L Normal 3.7-5.1 [facility] Comment on above: Order Comment: Speci men Type: BLOOD SPECIMENOrdering Facility: [facility] Address: [address] [place] [address] Performed By: #### 2 4323-8 ####[facility] MILLWNCLIA [id number] [place] [address] [place]#### 1798-8, 3040-3 ####[facility] LABCLIA [id number] [place] [address] [place] Protein [Mass/Vol] 7.3 g/dL Normal 6.3-8.0 [facility] Comment on above: Order Comment: Speci men Type: BLOOD SPECIMENOrdering Facility: [facility] Address: [address] [place] [address] Performed By: #### 2 4323-8 ####[facility] MILLTOWNCLIA [id number] [place] [address] [place]#### 1798-8, 3040-3 ####[facility] LABCLIA [id number] [place] [address] [place] Sodium [Moles/Vol] 140 mmol/L Normal 136-144 [facility] Comment on above: Order Comment: Speci men Type: BLOOD SPECIMENOrdering Facility: [facility] Address: [address] [place] [address] Performed By: #### 2 4323-8 ####[facility]ENTERLIA [id number] [place] [address] [place]#### 1798-8, 3040-3 ####[facility] LABCLIA [id number] [place] [address] [place] Urea nitrogen [Mass/Vol] 16 mg/dL Normal 7-21 [facility] Comment on above: Order Comment: Speci men Type: BLOOD SPECIMENOrdering Facility: [facility] Address: [address] [place] [address] Performed By: #### 2 4323-8 ####[facility] POINTWNCLIA [id number] [place] [address] [place]#### 1798-8, 3040-3 ####[facility] LABCLIA [id number] [place] [id number] [place] [facility] 01 25 Lipase [Catalytic activity/Vol] 77 U/L High 16-61 [facility] Comment on above: Order Comment: Speci men Type: BLOOD SPECIMENOrdering Facility: [facility] Address: [address] [place] [address] Performed By: #### 2 4323-8 ####[facility] IRAMIKE CHRISTIANSONROMANCENCLIA [id number] [place], [place] [address] [place] [address] [place]#### 1798-8, 3040-3 ####[facility] LABCLIA [id number] [facility]ENTERDESK [id number] [place] No Panel InformationOrdered By: Ccf Provider on 10-16-2024 Interpretation and review of laboratory results Abnormal [facility] CNOVon 09-19-2024 CNOV Office Visit (FAMPWS) SIMON RODRIGEZBEDIEGO Lozano ([id number]) 1955 F Date Time Provider Department 09/19/24 9:40 AM [facility]ISH [facility]EMOS [facility] During your visit today, we recorded the following information about you: Pulse Respiration Blood pressure Weight 73/minute 18/minute 124/68 74.9 kg Girish Lemos MD 09/19/2024 1:08 PM Signed Chief Complaint Patient presents with: Blood Pressure: Recheck-losartan increased to 50mg.No note of call back from [facility] [place] around 09/03/24 as requested with readings. Patient reports am readings higher but was advised by visiting nurse to take prior to medication. ARMANDO Martinezbandar Rodrigez is a 68 year old female [...] with average BP's in the 130/70's range. Bushra denies regular aerobic exercise. 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 Johnson Dysphagia Dr. Stiles Ectopic 1991 GERD (gastroesophageal reflux disease) History of prediabetes Hyperlipidemia Hypertension Hypothyroidism Obesity (BMI 30.0-34.9) Other pulmonary embolism without acute cor pulmonale (HCC) Pneum[facility] Requiring intubation Previous Surgical History PAST [...] Cancer Brother lung Stroke Maternal Grandmother or ID, patient unsure Coronary Artery Disease Maternal Grandfather No Known Problems Sister Patient Allergies ALLERGIES Allergen Reactions David Inhibitors Rash Codeine Vomiting, Other: See Comments Headache Remeron [Mirtazapin* Other: See Comments Fatigue Vuejbpu-Pcj-Pyz Red* Myalgia Merlin Unknown Zetia [Ezetimibe] Myalgia Current Medications Current [...] mouth two times a day. mv,jaci,iron,mn/folic acid/chol (VTQD-ITYC-HMFXQ, PABA, ORAL) Take 1 tablet by mouth [...] Use Topic (more content not included)... Normal [facility] Alexandrea 08-27-2024 [facility] Telephone (FAMPWS) BUSHRA RODRIGEZ ([id number]) 1955 F Date Time Provider Department 08/27/24 GIRISH LEMOSWS During your visit today, we recorded the following information about you: Marta Meadows, RN 08/27/2024 9:44 AM Signed Jeanne- [facility] [place]- reports she received a referral from patient's insurance company, once patient's losartan was increased, for their 3 mth monitoring program. [facility] monitors quality of life, checks VS's, [...] then, will increase to 100 mg daily. Kristen Baker RN 08/27/2024 10:51 AM Signed Jeanne- [facility] [place] called and is notified of providers message and instructions. She voices understanding and will send updated Bps in one week. Kristen Baker RN Allergies As of Date: 08/27/2024 Noted Allergy Reaction DAVID INHIBITORS 10/06/2017 2 - Rash CODEINE 10/06/2017 11 - Vomiting 14 - Other: See Comments Comments: Headache REMERON (MIRTAZAPINE) 01/17/2021 14 - Other: See Comments Comments: Fatigue KKJZSSJ-OXN-FXB REDUCTASE INHIBIT*11/14/2017 17 - Myalgia WALNUT 10/06/2017 [...] as needed for pain. - mv,jaci,iron,mn/folic acid/chol (ETHQ-YWRM-KNKNP, PABA, ORAL) Take 1 tablet by mouth [...] hypertension (HCC) [I27.20] 06/22/2023 Encounter Status:Closed by KRISTEN BAKER on 08/27/24 [facility] CNOVon 08-19-2024 CNOV Office Visit (FAMPWS) BUSHRA RODRIGEZ ([id number]) 1955 F Date Time Provider Department 08/19/24 10:20 AM JEANETTE BERRIOS During your visit today, we recorded the following information about you: Pulse Respiration Blood pressure Weight 58/minute 18/minute 164/82 77.2 kg Jeanette Berrios APRN.PRIMING POWDER PREMIX BLENDER 08/19/2024 12:04 PM Signed 08/19/2024 Patient presents [...] 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 Johnson Dysphagia Dr. Stiles Ectopic 1991 GERD (gastroesophageal reflux disease) History of prediabetes Hyperlipidemia Hypertension Hypothyroidism Obesity (BMI 30.0-34.9) Other pulmonary embolism without acute cor pulmonale (HCC) Pneumonia [facility] virus Requiring intubation ALLERGIES David Inhibitors, Codeine, Remeron [Mirtazapine], Edksyxo-Gch-Mni Reductase Inhibitors, Merlin, and Zetia [Ezetimibe] MEDICATIONS Current Outpatient Medications [...] hours as needed for pain. mv,jaci,iron,mn/folic acid/chol (DZOE-ZKMK-OBSFE, PABA, ORAL) Take 1 tablet by mouth [...] to treatmen (more content not included)... Normal [facility] CNOVon 07-15-2024 LILIANA Office Visit (CHRISTIANO) BUSHRA RODRIGEZ ([id number]) 1955 F Date Time Provider Department 07/15/24 [...] No. ASTHMA/Pulmonary HTN:/ARMANDO: Follows with Dr. 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 Last visit in May. 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 Johnson Dysphagia Dr. Stiles Ectopic 1991 GERD (gastroesophageal reflux disease) History of prediabetes Hyperlipidemia Hypertension Hypothyroidism Obesity (BMI 30.0-34.9) Other pulmonary embolism without acute cor pulmonale (HCC) Pneumonia [facility] Requiring intubation ALLERGIES David Inhibitors, Codeine, Remeron [Mirtazapine], Cbspbnt-Tiu-Kqz Reductase Inhibitors, Merlin, and Zetia [Ezetimibe] MEDICATIONS Current Outpatient Medications [...] hours as needed for pain. mv,jaci,iron,mn/folic acid/chol (TMWU-PRFU-SEYDY, PABA, ORAL) Take 1 tablet by mouth [...] - 7 (more content not included)... Normal [facility] Comprehensive metabolic 2000 panelon 07-15-2024 Albumin [Mass/Vol] 4.5 g/dL Normal 3.9-4.9 [facility] Comment on above: Order Comment: Speci men Type: BLOOD SPECIMEN [facility]ing Facility: [facility] Address: [address] [place] [address] Performed By: #### 2 2314-9, 08497-4, 5194-3 #### [facility] CLIA [id number] [address] [place] [address] [place] ALP [Catalytic activity/Vol] 86 U/L Normal 34-123 [facility] Comment on above: Order Comment: Speci men Type: BLOOD SPECIMEN Ordering Facility: [facility] Address: [address] [place] [address] Performed By: #### 2 2314-9, 15252-0, 5194-3 #### [facility] CLIA [id number] [address] [place] [address] [place] ALT [Catalytic activity/Vol] 20 U/L Normal 7-38 [facility] Comment on above: Order Comment: Speci men Type: BLOOD SPECIMEN Ordering Facility: [facility] Address: [address] [place] [address] Performed By: #### 2 2314-9, 08255-6, 5194-3 #### [facility] CLIA [id number] [address] [place] [address] [place] Anion gap [Moles/Vol] 11 mmol/L Normal 8-15 [facility] Comment on above: Order Comment: Speci men Type: BLOOD SPECIMEN Ordering Facility: [facility] Address: [address] [place] [address] Performed By: #### 2 2314-9, 47561-5, 5194-11 #### [facility] CLIA [id number] [address] [place] [address] [place] AST [Catalytic activity/Vol] 27 U/L Normal 13-35 [facility] Comment on above: Order Comment: Speci men Type: BLOOD SPECIMEN Ordering Facility: [facility] Address: [address] [place] [address] Performed By: #### 2 2314-9, 16272-1, 5194-11 #### [facility] CLIA [id number] [address] [place] [address] [place] Bilirubin [Mass/Vol] 0.3 mg/dL Normal 0.2-1.3 [facility] Comment on above: Order Comment: Speci men Type: BLOOD SPECIMEN [facility] Facility: [facility] Address: [address] [place] [address] Performed By: #### 2 2314-9, 05208-3, 5194-11 #### [facility] CLIA [id number] [address] [place] [address] [place] Calcium [Mass/Vol] 9.7 mg/dL Normal 8.5-10.2 [facility] Comment on above: Order Comment: Speci men Type: BLOOD SPECIMEN Ordering Facility: [facility] Address: [address] [place] [address] Performed By: #### 2 2314-9, 21353-9, 5194-11 #### [facility] CLIA [id number] [address] [place] [address] [place] Chloride [Moles/Vol] 108 mmol/L High 98-107 [facility] Comment on above: Order Comment: Speci men Type: BLOOD SPECIMEN Ordering Facility: [facility] Address: [address] [place] [address] Performed By: #### 2 2314-9, 52085-7, 5194-11 #### [facility] CLIA [id number] [address] [place] [address] [place] CO2 [Moles/Vol] 25 mmol/L Normal 22-30 [facility] Comment on above: Order Comment: Speci men Type: BLOOD SPECIMEN Ordering Facility: [facility] Address: [address] [place] [address] Performed By: #### 2 2314-9, 17378-0, 5194-11 #### [facility] CLIA [id number] [address] [place] [address] [place] Creatinine [Mass/Vol] 0.90 mg/dL Normal 0.58-0.96 [facility] Comment on above: Order Comment: Speci men Type: BLOOD SPECIMEN Ordering Facility: [facility] Address: [address] [place] [address] Performed By: #### 2 2314-9, 04957-9, 5194-11 #### [facility] CLIA [id number] [address] [place] [address] [place] Creatinine and Glomerular filtration rate.predicted panel (S/P/Bld) 69 mL/min/1.73m??? Normal >=60 [facility] Comment on above: Order Comment: Speci men Type: BLOOD SPECIMEN Ordering Facility: [facility] Address: [address] [place] [address] Result Comment: Jazlyn mated Glomerular Filtration Rate [...] actual GFR. Performed By: #### 2 2314-9, 15442-9, 5194-11 #### [facility] CLIA [id number] [address] [place], [place] [address] [place] Glucose [Mass/Vol] 81 mg/dL Normal 74-99 [facility] Comment on above: Order Comment: Speci men Type: BLOOD SPECIMEN Ordering Facility: [facility] Address: [address] [place] [address] Result Comment: The [place] Diabetes Association (ADA) provides guidance for cutoff [...] Standards of Medical Care in Diabetes 2016, [place] Diabetes Association. Diabetes Care. 2016.39(Suppl 1). Performed By: #### 2 2314-9, 91043-6, 3 #### [facility] CLIA [id number] [address] [place] [address] [place] Potassium [Moles/Vol] 3.8 mmol/L Normal 3.7-5.1 [facility] Comment on above: Order Comment: Pati men Type: BLOOD SPECIMEN Ordering Facility: [facility] Address: [address] [place] [address] Performed By: #### 2 2314-9, 55408-2, 3 #### [facility] CLIA [id number] [address] [place] [address] [place] Protein [Mass/Vol] 6.9 g/dL Normal 6.3-8.0 [facility] Comment on above: Order Comment: Changi men Type: BLOOD SPECIMEN Ordering Facility: [facility] Address: [address] [place], [place] [address] Performed By: #### 2 2314-9, 33219-3, 3 #### [facility] CLIA [id number] [address] [place] [address] [place] Sodium [Moles/Vol] 144 mmol/L Normal 136-144 [facility] Comment on above: Order Comment: Pati fajardo Type: BLOOD SPECIMEN Ordering Facility: [facility] Address: [address] [place] [address] Performed By: #### 2 2314-9, 65049-8, 5195-3 #### [facility] CLIA [id number] [address] [place] [address] [place] Urea nitrogen [Mass/Vol] 15 mg/dL Normal 7-21 [facility] Comment on above: Order Comment: Pati fajardo Type: BLOOD SPECIMEN Ordering Facility: [facility] Address: [address] [place] [address] Performed By: #### 2 2314-9, 62901-4, 5195-3 #### [facility] CLIA [id number] [address] [place] [address] [place] HbA1c (Bld)on 07-15-2024 Average glucose Estimated from glycated hemoglobin (Bld) [Mass/Vol] 120 mg/dL Normal [facility] Comment on above: Order Comment: Pati fajardo Type: BLOOD SPECIMEN Ordering Facility: [facility] Address: [address] [place] [address] Result Comment: eAG: (Estimated average glucose) is a calculated value from HgbA1c and is printing supplies sales representative of the average blood glucose level in the last 2-3 month period. Performed By: #### 5 5454-3 #### [facility] CLIA [id number] [address] [place] [address] [place] HbA1c (Bld) [Mass fraction] 5.8 % High 4.3-5.6 [facility] Comment on above: Order Comment: Pati fajardo Type: BLOOD SPECIMEN Ordering Facility: [facility] Address: [address] [place] [address] Result Comment: Amer [place] Diabetes Association guidelines indicate that patients with HgbA1c in the range 5.7-6.4% are at increased risk for development of diabetes, and intervention by lifestyle modification may be beneficial. HgbA1c greater or equal to 6.5% is considered diagnostic of diabetes. Performed By: #### 5 5454-3 #### [facility] CLIA [id number] [address] [place] [address] [place] Pulmonary Visit Reporton Pulmonary Visit Report Normal [facility] CV ARTERIAL U OR L SINGLE [address] [address] Patient: BUSHRA RODRIGEZTori Phone#: : 1955 Age: 68 Gender: F Pt. Type: Out Account: [id number] Location: [facility] Ordering: RICHARD GARCIA Exam Date: 06/13/2024/7:48 Family Phys: GIRISH LEMOS Charge Code: [id number] Physician: [place] Order #: [id number] Dose#: PROCEDURE: ARTERIAL BILAT U OR L [...] 181 184 Ankle (DPA): 190 186 Ankle (ALTERNATIVE FINANCING SPECIALIST): 209 193 ANKLE BRACHIAL INDEX RIGHT LEFT 1.14 1.05 Pattern Data Operator: RICARDO FINDINGS: Right Lower Extremity: The right lower extremity demonstrates normal triphasic Doppler signals at the posterior tibial, and dorsalis pedis arteries. Volume pulse recordings are normal throughout the extremity demonstrating a sharp systolic peak and prominent dicrotic notch. Left Lower Extremity: Continued Report - Page 2 of 2 Patient: ELIA BUSHRA M. Phone#: : 1955 Age: 68 Gender: F Pt. Type: Out Account: [id number] Location: 052 Ordering: RICHARD GARCIA Exam Date: 06/13/2024/7:48 Family Phys: GIRISH LEMOS Charge Code: [id number] Physician: [place] Order #: [id number] Dose#: The left lower extremity demonstrates normal [...] Bonner MD on 06/13/2024 at 13:[address] [facility] Fluor Guidance for Spine Inj on 06-02-2024 Fluor Guidance for Spine Inj Normal [facility] MR/POSTOP.ANEon 06-02-2024 MR/POSTOP.ANE Normal [facility] MR/[id number] 06-02-2024 MR/POSTOPAN2 Normal [facility] Operative Reporton Operative Report Normal [facility] Echo Complete W/ Contraston 04-01-2024 Echo Complete W/ Contrast Normal [facility] LIPID PROFILEon 03-06-2024 Cholesterol [Mass/Vol] 231 mg/dL Normal 0 - 240 [facility] Comment on above: Performed By: #### 2 23692 #### [facility],[address] [place] [address] Cholesterol in HDL [Mass/Vol] 66 mg/dL High 40 - 60 [facility] Comment on above: Performed By: #### 2 38962 #### [facility],[address] [place] [address] Cholesterol in LDL [Mass/Vol] 151 mg/dL High 0 - 129 [facility] Comment on above: Performed By: #### 2 22475 #### [facility],[address] [place] [address] Cholesterol.total/Choles terol in HDL [Mass ratio] 3.5 {ratio} Normal 0.0 - 5.0 [facility] Comment on above: Performed By: #### 2 42574 #### [facility],[address] [place] [address] [address] [facility] Comment on above: Result Comment: LIPI D PROFILE Performed By: #### 2 77827 #### [facility],[address] [place] [address] Triglyceride [Mass/Vol] 71 mg/dL Normal 0 - 150 [facility] Comment on above: Performed By: #### 2 39666 #### [facility],[address] [place] [address] LIPID PROFILEon 06-21-2023 Cholesterol [Mass/Vol] 159 mg/dL Normal 0 - 240 [facility] Comment on above: Performed By: #### 2 29558 #### [facility],[address] [place] [address] Cholesterol in HDL [Mass/Vol] 62 mg/dL High 40 - 60 [facility] Comment on above: Performed By: #### 2 70356 #### [facility],[address] [place] [address] Cholesterol in LDL [Mass/Vol] 86 mg/dL Normal 0 - 129 [facility] Comment on above: Performed By: #### 2 13340 #### [facility],[address] [place] [address] Cholesterol.total/Choles terol in HDL [Mass ratio] 2.6 {ratio} Normal 0.0 - 5.0 [facility] Comment on above: Performed By: #### 2 77851 #### [facility],[address] [place] [address] [address]id [address] [facility] Comment on above: Result Comment: LIPI D PROFILE Performed By: #### 2 94408 #### [facility],[address] [place] [address] Triglyceride [Mass/Vol] 57 mg/dL Normal 0 - 150 [facility] Comment on above: Performed By: #### 2 41682 #### [facility],[address] [place] [address] CBC W Auto Differential pane l (Bld)on 02-20-2023 Basophils (Bld) [#/Vol] 0.05 10*3/uL <0.11 k/uL [facility] Basophils/100 WBC (Bld) 0.9 % [facility] Differential cell count method Nom (Bld) Auto [facility] Eosinophils (Bld) [#/Vol] 0.15 10*3/uL <0.46 k/uL [facility] Eosinophils/100 WBC (Bld) 2.8 % [facility] Erythrocyte distribution width (RBC) [Ratio] 13.0 % 11.5 - 15.0 % [facility] Hematocrit (Bld) [Volume fraction] 46.0 % 36.0 - 46.0 % [facility] Hemoglobin (Bld) [Mass/Vol] 14.9 g/dL 11.5 - 15.5 g/dL [facility] Immature granulocytes (Bld) [#/Vol] <0.10 k/uL [facility] Immature granulocytes/100 WBC (Bld) 0.4 % [facility] Lymphocytes (Bld) [#/Vol] 1.41 10*3/uL 1.00 - 4.00 k/uL [facility] Lymphocytes/100 WBC (Bld) 26.2 % [facility] MCH (RBC) [Entitic mass] 28.8 pg 26. 0 - 34.0 pg [facility] MCHC (RBC) [Mass/Vol] 32.4 g/dL 30.5 - 36.0 g/dL [facility] MCV (RBC) [Entitic vol] 88.8 fL 80.0 - 100.0 fL [facility] Monocytes (Bld) [#/Vol] 0.66 10*3/uL <0.87 k/uL [facility] Monocytes/100 WBC (Bld) 12.2 % [facility] Neutrophils (Bld) [#/Vol] 3.10 10*3/uL 1.45 - 7.50 k/uL [facility] Neutrophils/100 WBC (Bld) 57.5 % [facility] Nucleated RBC (Bld) [#/Vol] <0.01 k/uL [facility] Nucleated RBC/100 WBC (Bld) [Ratio] 0.0 /100 WBC [facility] Platelet mean volume (Bld) [Entitic vol] 10.9 fL 9.0 - 12.7 fL [facility] Platelets (Bld) [#/Vol] 308 10*3/uL 150 - 400 k/uL [facility] RBC (Bld) [#/Vol] 5.18 10*6/uL 3.90 - 5.2 0 m/uL [facility] WBC (Bld) [#/Vol] 5.39 10*3/uL 3.70 - 11. 00 k/uL [facility] XR FOOT GENERAL 3V AP/LAT/OB L LEFTon 01-24-2023 [facility] DXA-AXIAL SKELETONon 023 LOWEST T-SCORE -0.7 [facility] Absolute lymphocyte counton 09-13-2022 Lymphocytes Auto (Unsp spec) [#/Vol] 1.57 10*3/uL 0.83-4.51 [facility] Work Phone: Basophil percentageon 2021 Basophils/100 WBC (Bld) 0.6 % 0-1 [facility] Work Phone: Bilirubin [Mass/Vol] 0.50 mg/dL 0.20-1.00 [facility] Work Phone: Comment on above: For patients on eltr ombopag therapy, use of Dimension [place] TBIL is not recommended. Chloride [Moles/Vol] 107 mmol/L 98-107 [facility] Work Phone: Eosinophils/100 WBC (Bld) 1.8 % 0-5 [facility] Work Phone: Glucose [Mass/Vol] 102 mg/dL 74-106 [facility] Work Phone: Comment on above: Fasting Glucose resu lt from 100 to 125 mg/dL suggests IMPAIRED HOMEOSTASIS per A.D.A. criteria. Neutrophils (Bld) [#/Vol] 4.4 10*3/uL 2.0-7.7 [facility] Work Phone: Neutrophils/100 WBC (Bld) 62.2 % 47-70 [facility] Work Phone: Potassium [Moles/Vol] 4.9 mmol/L 3.5-5.1 [facility] Work Phone: Comment on above: Moderate Hemolysis, Result may be falsely increased. Protein [Mass/Vol] 7.2 g/dL 6.4-8.2 [facility] Work Phone: Sodium [Moles/Vol] 141 mmol/L 136-145 [facility] Work Phone: WBC (Bld) [#/Vol] 7.1 10*3/uL 4.4-11.0 [facility] Work Phone: Blood erythrocytes count (nu mber/volume)on 09-13-2022 RBC (Bld) [#/Vol] 5.37 10*6/uL 4.2-5.4 [facility] Work Phone: Blood hemoglobin measurement (mass/volume)on 09-13-2022 Hemoglobin (Bld) [Mass/Vol] 15.8 g/dL 12.0-15.0 [facility] Work Phone: Blood lymphocytes/100 leukoc yteson 09-13-2022 Lymphocytes/100 WBC (Bld) 22.2 % 19-41 [facility] Work Phone: Blood monocytes/100 leukocyt eson 09-13-2022 Monocytes/100 WBC (Bld) 12.4 % 0-10 [facility] Work Phone: Blood platelet mean volumeon 09-13-2022 Platelet mean volume (Bld) [Entitic vol] 9.7 fL 6.2-12.0 [facility] Work Phone: Determination of erythrocyte mean corpuscular volume (MCV)on 09-13-2022 MCV (RBC) [Entitic vol] 88.5 fL 81-99 [facility] Work Phone: [phone] Hematocrit Auto (Bld) [Volum e fraction]on 09-13-2022 Hematocrit (Bld) [Volume fraction] 47.5 % 37-47 [facility] Work Phone: [phone] Laboratory - Chemistry and C hemistry - challengeon 09-13-2022 ALP [Catalytic activity/Vol] 100 U/L 45-117 [facility] Work Phone: [phone] ALT [Catalytic activity/Vol] 69 U/L 13-56 [facility] Work Phone: [phone] CO2 [Moles/Vol] 27.0 mmol/L 21.0-32.0 [facility] Work Phone: [phone] Globulin (S) [Mass/Vol] 3.9 g/dL 2.2-4.2 [facility] Work Phone: [phone] Urea nitrogen/Creatinine [Mass ratio] 17.6 mg/mg 10-20 [facility] Work Phone: [phone] Laboratory - Hematology and Cell countson 09-13-2022 Erythrocyte distribution width (RBC) [Entitic vol] 42.7 fL 35.1-43.9 [facility] Work Phone: [phone] Erythrocyte distribution width (RBC) [Ratio] 13.1 % 11.6-14.6 [facility] Work Phone: [phone] Immature granulocytes/100 WBC (Bld) 0.800 % 0.0-0.9 [facility] Work Phone: [phone] Comment on above: IG% - Immature Granu locytes (promyelocytes, myelocytes and metamyelocytes) > 1% indicates that a LEFT SHIFT is Present. MCH (RBC) [Entitic mass] 29.4 pg 27.0-32.0 [facility] Work Phone: [phone] Nucleated RBC/100 WBC (Bld) [Ratio] 0 % 0-5 [facility] Work Phone: [phone] MCHC Auto (RBC) [Mass/Vol]on 09-13-2022 MCHC (RBC) [Mass/Vol] 33.3 g/dL 32-36 [facility] Work Phone: No Panel Informationon 09-13 Estimated Creatinine Clearance Calc 41.81 ml/min [facility] Work Phone: Estimated GFR (MDRD) Amer 65 mL/min >60 [facility] Work Phone: Comment on above: GFR Calc Estimated GFR (MDRD) Non-Af Amer 54 mL/min >60 [facility] Work Phone: Comment on above: Non- GFR Calc Platelets bldon 09-13-2022 Platelets (Bld) [#/Vol] 336 10*3/uL 150-450 [facility] Work Phone: Serum or plasma albumin jayro urement (mass/volume)on 09-13-2022 Albumin [Mass/Vol] 3.3 g/dL 3.2-5.0 [facility] Work Phone: [phone] Serum or plasma albumin/glob ulin mass ratioon 09-13-2022 Albumin/Globulin [Mass ratio] 0.8 {ratio} 0.9-2.4 [facility] Work Phone: Serum or plasma calcium jayro urement (mass/volume)on 09-13-2022 Calcium [Mass/Vol] 9.3 mg/dL 8.5-10.1 [facility] Work Phone: Serum or plasma creatinine m easurement (mass/volume)on 09-13-2022 Creatinine [Mass/Vol] 1.08 mg/dL 0.55-1.02 [facility] Work Phone: Comment on above: The validity of the calculated GFR & GFRAA in patients over 70 years has not been determined. Clinical correlation is essential. Serum or plasma urea nitroge n measurement (mass/volume)on 09-13-2022 Urea nitrogen [Mass/Vol] 19 mg/dL 7-18 [facility] Work Phone: Thin prep Papanicolaou smear with manual screeningon 09-13-2022 Thin prep Papanicolaou smear with manual screening 53 U/L 15-37 [facility] Work Phone: Comment on above: Moderate Hemolysis, Result may be falsely increased. Thin prep Papanicolaou smear with manual screening 7 5-15 [facility] Work Phone: UA DIP, URINE (POC)on 2021 BILIRUBIN UA (POCT) Negative Negative [facility] CLARITY UA (POCT) Slightly Cloudy Cl [facility] COLOR UA (POCT) Dark yellow [facility] GLUCOSE UA (POCT) Negative Negative mg/dL [facility] HEMOGLOBIN/BLOOD UA (POCT) Large Abnormal Negative [facility] KETONE UA (POCT) Negative Negative mg/dL [facility] LEUKOCYTES UA (POCT) Negative Negative [facility] NITRITE UA (POCT) Negative Negative [facility] PH UA (POCT) 5.5 4.5 - 8.0 [facility] Protein Ql (U) 30 mg/dL Abnormal Negative mg/dL [facility] SPECIFIC GRAVITY UA (POCT) 1.025 1.005 - 1.030 [facility] UROBILINOGEN UA (POCT) 0.2 E.U./dL Mellissa l E.U./dL [facility] 2019 CORONAVIRUSon 2 SARS-CoV-2 (COVID-19) RNA DEBBY+probe Ql (Resp) SARS-CoV-2 (Agent of COVID-19) Not Detected by RT-PCR or equivalent method. Not Detected [facility] XR Chest PA and Lateralon IMPRESSION: Stable chest. No acute cardiopulmonary process. Sagger Soak[facility] Transcribe Date/Time: Nov 25 2021 1:45P Dictated by : BANDAR KUMAR MD This examination was interpreted and the report reviewed and electronically signed by: BANDAR KUMAR MD on Nov 25 2021 1:48PM [facility] DIVISION OF RADIOLOGY * * [...] structures are intact DIVISION OF RADIOLOGY Provider, [facility] - 11/25/2021 * * *Final Report* * [...] IMPRESSION: Stable chest. No acute cardiopulmonary process. Sagger Soak: [facility] Transcribe Date/Time: Nov 25 2021 1:45P Dictated by : BANDAR KUMAR MD This examination was interpreted and the report reviewed and electronically signed by: BANDAR KUMAR MD on Nov 25 2021 1:48PM EST [facility] Radiology Study observation (narrative) Anant schneider [facility] XR Chest PA and LateralOrder ed By: Ccf Provider on 11-25-2021 [facility] Absolute lymphocyte counton 11-17-2021 Lymphocytes Auto (Unsp spec) [#/Vol] 0.65 10*3/uL 0.83-4.51 [facility] Work Phone: Basophil percentageon 2021 Basophils/100 WBC (Bld) 0.2 % 0-1 [facility] Work Phone: Chloride [Moles/Vol] 103 mmol/L 98-107 [facility] Work Phone: Eosinophils/100 WBC (Bld) 0.2 % 0-5 [facility] Work Phone: Glucose [Mass/Vol] 98 mg/dL 74-106 [facility] Work Phone: Neutrophils (Bld) [#/Vol] 5.0 10*3/uL 2.0-7.7 [facility] Work Phone: Neutrophils/100 WBC (Bld) 75.4 % 47-70 [facility] Work Phone: Potassium [Moles/Vol] 3.5 mmol/L 3.5-5.1 [facility] Work Phone: Sodium [Moles/Vol] 135 mmol/L 136-145 [facility] Work Phone: WBC (Bld) [#/Vol] 6.7 10*3/uL 4.4-11.0 [facility] Work Phone: Blood erythrocytes count (nu mber/volume)on 11-17-2021 RBC (Bld) [#/Vol] 4.70 10*6/uL 4.2-5.4 [facility] Work Phone: Blood hemoglobin measurement (mass/volume)on 11-17-2021 Hemoglobin (Bld) [Mass/Vol] 13.5 g/dL 12.0-15.0 [facility] Work Phone: Blood lymphocytes/100 leukoc yteson 11-17-2021 Lymphocytes/100 WBC (Bld) 9.8 % 19-41 [facility] Work Phone: Blood monocytes/100 leukocyt eson 11-17-2021 Monocytes/100 WBC (Bld) 13.5 % 0-10 [facility] Work Phone: [phone] Blood platelet mean volumeon 11-17-2021 Platelet mean volume (Bld) [Entitic vol] 10.9 fL 6.2-12.0 [facility] Work Phone: [phone] Determination of erythrocyte mean corpuscular volume (MCV)on 11-17-2021 MCV (RBC) [Entitic vol] 86.2 fL 81-99 [facility] Work Phone: [phone] Hematocrit Auto (Bld) [Volum e fraction]on 11-17-2021 Hematocrit (Bld) [Volume fraction] 40.5 % 37-47 [facility] Work Phone: [phone] Laboratory - Chemistry and C hemistry - challengeon 11-17-2021 CO2 [Moles/Vol] 27.0 mmol/L 21.0-32.0 [facility] Work Phone: [phone] Urea nitrogen/Creatinine [Mass ratio] 17.5 mg/mg 10-20 [facility] Work Phone: [phone] Laboratory - Hematology and Cell countson 11-17-2021 Erythrocyte distribution width (RBC) [Entitic vol] 42.7 fL 35.1-43.9 [facility] Work Phone: [phone] Erythrocyte distribution width (RBC) [Ratio] 13.4 % 11.6-14.6 [facility] Work Phone: [phone] Immature granulocytes/100 WBC (Bld) 0.900 % 0.0-0.9 [facility] Work Phone: [phone] Comment on above: IG% - Immature Granu locytes (promyelocytes, myelocytes and metamyelocytes) > 1% indicates that a LEFT SHIFT is Present. MCH (RBC) [Entitic mass] 28.7 pg 27.0-32.0 [facility] Work Phone: [phone] Nucleated RBC/100 WBC (Bld) [Ratio] 0 % 0-5 [facility] Work Phone: [phone] MCHC Auto (RBC) [Mass/Vol]on 11-17-2021 MCHC (RBC) [Mass/Vol] 33.3 g/dL 32-36 [facility] Work Phone: No Panel Informationon 11-17 Estimated Creatinine Clearance Calc 43.84 ml/min [facility] Work Phone: Estimated GFR (MDRD) Amer 69 mL/min >60 [facility] Work Phone: Comment on above: GFR Calc Estimated GFR (MDRD) Non-Af Amer 57 mL/min >60 [facility] Work Phone: Comment on above: Non- GFR Calc Platelets bldon 11-17-2021 Platelets (Bld) [#/Vol] 228 10*3/uL 150-450 [facility] Work Phone: Serum or plasma calcium jayro urement (mass/volume)on 11-17-2021 Calcium [Mass/Vol] 9.1 mg/dL 8.5-10.1 [facility] Work Phone: Serum or plasma creatinine m easurement (mass/volume)on 11-17-2021 Creatinine [Mass/Vol] 1.03 mg/dL 0.55-1.02 [facility] Work Phone: Comment on above: The validity of the calculated GFR & GFRAA in patients over 70 years has not been determined. Clinical correlation is essential. Serum or plasma urea nitroge n measurement (mass/volume)on 11-17-2021 Urea nitrogen [Mass/Vol] 18 mg/dL 7-18 [facility] Work Phone: Thin prep Papanicolaou smear with manual screeningon 11-17-2021 Thin prep Papanicolaou smear with manual screening 5 5-15 [facility] Work Phone: XR Chest PA and Lateralon [...] to pulmonary artery hypertension or hilar lymphadenopathy. Sagger Soak: CHRISTY Transcribe Date/Time: Nov 15 2021 3:09P Dictated by : RAJIV DONOVAN MD This examination was interpreted and the report reviewed and electronically signed by: RAJIV DONOVAN MD on Nov 15 2021 3:43PM [facility] DIVISION OF RADIOLOGY * * [...] right chest wall. DIVISION OF RADIOLOGY Provider, [facility] - 11/15/2021 * * *Final Report* * [...] to pulmonary artery hypertension or hilar lymphadenopathy. Sagger Soak: CHRISTY Transcribe Date/Time: Nov 15 2021 3:09P Dictated by : RAJIV DONOVAN MD This examination was interpreted and the report reviewed and electronically signed by: RAJIV DONOVAN MD on Nov 15 2021 3:43PM EST [facility] Radiology Study observation (narrative) Anant schneider [facility] XR Chest PA and LateralOrder ed By: Ccf Provider on 11-15-2021 [facility] Absolute lymphocyte counton 11-12-2021 Lymphocytes Auto (Unsp spec) [#/Vol] 0.57 10*3/uL 0.83-4.51 [facility] Work Phone: Basophil percentageon 2021 Basophils/100 WBC (Bld) 0.6 % 0-1 [facility] Work Phone: Chloride [Moles/Vol] 108 mmol/L 98-107 [facility] Work Phone: Eosinophils/100 WBC (Bld) 0.5 % 0-5 [facility] Work Phone: Glucose [Mass/Vol] 135 mg/dL 74-106 [facility] Work Phone: Comment on above: Fasting Glucose resu lt greater than or equal to 126 mg/dL suggests DIABETES MELLITUS per A.D.A. criteria. Neutrophils (Bld) [#/Vol] 4.8 10*3/uL 2.0-7.7 [facility] Work Phone: Neutrophils/100 WBC (Bld) 74.4 % 47-70 [facility] Work Phone: Potassium [Moles/Vol] 3.7 mmol/L 3.5-5.1 [facility] Work Phone: Sodium [Moles/Vol] 140 mmol/L 136-145 [facility] Work Phone: [phone] WBC (Bld) [#/Vol] 6.5 10*3/uL 4.4-11.0 [facility] Work Phone: [phone] Blood erythrocytes count (nu mber/volume)on 11-12-2021 RBC (Bld) [#/Vol] 4.93 10*6/uL 4.2-5.4 [facility] Work Phone: Blood hemoglobin measurement (mass/volume)on 11-12-2021 Hemoglobin (Bld) [Mass/Vol] 14.6 g/dL 12.0-15.0 [facility] Work Phone: [phone] Blood lymphocytes/100 leukoc yteson 11-12-2021 Lymphocytes/100 WBC (Bld) 8.8 % 19-41 [facility] Work Phone: [phone] Blood manual differential co mment interpretation (narrative result)on 11-12-2021 Manual differential comment Scott (Bld) [Interp] See comment [facility] Work Phone: Comment on above: LYMPHOPENIA NOTED Blood monocytes/100 leukocyt eson 11-12-2021 Monocytes/100 WBC (Bld) 15.4 % 0-10 [facility] Work Phone: [phone] Blood platelet adequacy dete ction by light microscopyon 11-12-2021 Platelets LM Ql (Bld) ADEQUATE ADEQ [facility] Work Phone: [phone] Blood platelet mean volumeon 11-12-2021 Platelet mean volume (Bld) [Entitic vol] 10.2 fL 6.2-12.0 [facility] Work Phone: [phone] Determination of erythrocyte mean corpuscular volume (MCV)on 11-12-2021 MCV (RBC) [Entitic vol] 86.0 fL 81-99 [facility] Work Phone: [phone] Hematocrit Auto (Bld) [Volum e fraction]on 11-12-2021 Hematocrit (Bld) [Volume fraction] 42.4 % 37-47 [facility] Work Phone: [phone] Laboratory - Chemistry and C hemistry - challengeon 11-12-2021 CO2 [Moles/Vol] 24.0 mmol/L 21.0-32.0 [facility] Work Phone: [phone] Urea nitrogen/Creatinine [Mass ratio] 13.3 mg/mg 10-20 [facility] Work Phone: [phone] Laboratory - Hematology and Cell countson 11-12-2021 Erythrocyte distribution width (RBC) [Entitic vol] 42.1 fL 35.1-43.9 [facility] Work Phone: [phone] Erythrocyte distribution width (RBC) [Ratio] 13.4 % 11.6-14.6 [facility] Work Phone: [phone] Immature granulocytes/100 WBC (Bld) 0.300 % 0.0-0.9 [facility] Work Phone: [phone] Comment on above: IG% - Immature Granu locytes (promyelocytes, myelocytes and metamyelocytes) > 1% indicates that a LEFT SHIFT is Present. MCH (RBC) [Entitic mass] 29.6 pg 27.0-32.0 [facility] Work Phone: [phone] Nucleated RBC/100 WBC (Bld) [Ratio] 0 % 0-5 [facility] Work Phone: [phone] MCHC Auto (RBC) [Mass/Vol]on 11-12-2021 MCHC (RBC) [Mass/Vol] 34.4 g/dL 32-36 [facility] Work Phone: [phone] No Panel Informationon 11-12 Estimated Creatinine Clearance Calc 43.01 ml/min [facility] Work Phone: [phone] Estimated GFR (MDRD) Amer 67 mL/min >60 [facility] Work Phone: [phone] Comment on above: GFR Calc Estimated GFR (MDRD) Non-Af Amer 56 mL/min >60 [facility] Work Phone: [phone] Comment on above: Non- GFR Calc SARS-CoV-2 Antigen (Rapid) [facility] Work Phone: Platelets bldon 11-12-2021 Platelets (Bld) [#/Vol] 264 10*3/uL 150-450 [facility] Work Phone: RBC morphologyon 11-12-2021 RBC morphology finding Nom (Bld) NORM C+C NORMAL NORM C&C [facility] Work Phone: Serum or plasma calcium jayro urement (mass/volume)on 11-12-2021 Calcium [Mass/Vol] 9.5 mg/dL 8.5-10.1 [facility] Work Phone: Serum or plasma creatinine m easurement (mass/volume)on 11-12-2021 Creatinine [Mass/Vol] 1.05 mg/dL 0.55-1.02 [facility] Work Phone: Comment on above: The validity of the calculated GFR & GFRAA in patients over 70 years has not been determined. Clinical correlation is essential. Serum or plasma urea nitroge n measurement (mass/volume)on 11-12-2021 Urea nitrogen [Mass/Vol] 14 mg/dL 7-18 [facility] Work Phone: Thin prep Papanicolaou smear with manual screeningon 11-12-2021 Thin prep Papanicolaou smear with manual screening 8 5-15 [facility] Work Phone: Vital Signs Date Time Vital Sign Value Performing Clinician Facility 04-06-2025 10:33-0400 Body height 160.[address] Fabricio Lemos MD Work Phone: [facility] 04-06-2025 10:33-0400 Body mass index (BMI) [Ratio] 25 kg/m2 Dr. Fabricio Lemos MD Work Phone: [facility] 04-06-2025 10:33-0400 Body temperature 98.3 [degF] Dr. Fabricio Lemos MD Work Phone: [facility] 04-06-2025 10:33-0400 Body weight 64.[address] Fabricio Lemos MD Work Phone: [phone](753)482-523311 [place] [address] 04-06-2025 10:33-0400 Diastolic blood pressure 75 mm[Hg] Dr. Fabricio Lemos MD Work Phone: 9(748)454-837811 [place] [address] 04-06-2025 10:33-0400 Heart rate 76 /min Dr. Fabricio Lemos MD Work Phone: 8(765)475-743311 [place] [address] 04-06-2025 10:33-0400 Respiratory rate 18 /min Dr. Fabricio Lemos MD Work Phone: 8(815)327-062211 [place] [address] 04-06-2025 10:33-0400 SaO2% (BldA) [Mass fraction] 93 % Dr. Fabricio Lemos MD Work Phone: [phone])[phone] [place] [address] 04-06-2025 10:33-0400 Systolic blood pressure 135 mm[Hg] Dr. Fabricio Lemos MD Work Phone: 6(866)426-002211 [place] [address] 04-05-2025 22:20-0400 Body temperature 97.9 [degF] Dr. Fabricio Lemos MD Work Phone: 7(164)575-782911 [place] [address] 04-05-2025 22:20-0400 Diastolic blood pressure 78 mm[Hg] Dr. Fabricio Lemos MD Work Phone: 7(940)605-363511 [place] [address] 04-05-2025 22:20-0400 Heart rate 75 /min Dr. Fabricio Lemos MD Work Phone: 2(799)643-669911 [place] [address] 04-05-2025 22:20-0400 Respiratory rate 14 /min Dr. Fabricio Lemos MD Work Phone: 5(978)901-072211 [place] [address] 04-05-2025 22:20-0400 SaO2% (BldA) [Mass fraction] 99 % Dr. Fabricio Lemos MD Work Phone: 9(619)504-419911 [place] [address] 04-05-2025 22:20-0400 Systolic blood pressure 145 mm[Hg] Dr. Fabricio Lemos MD Work Phone: 7(332)414-268611 [place] [address] 04-05-2025 20:22-0400 Body mass index (BMI) [Ratio] 25 kg/m2 Dr. Fabricio Lemos MD Work Phone: 4(271)969-058911 [place] [address] 04-05-2025 20:22-0400 Body weight [address] Fabricio Lemos MD Work Phone: 7(726)416-071711 [place] [address] 04-05-2025 19:38-0400 Body height 160.[address] Fabricio Lemos MD Work Phone: 9(561)651-100811 [place] [address] 03-19-2025 14:43-0400 Body temperature 96.1 [degF] Dr. Fabricio Lemos MD Work Phone: 6(576)227-250311 [place] [address] 03-19-2025 14:43-0400 Diastolic blood pressure 74 mm[Hg] Dr. Fabricio Lemos MD Work Phone: 3(748)424-461611 [place] [address] 03-19-2025 14:43-0400 Heart rate 66 /min Dr. Fabricio Lemos MD Work Phone: 6(821)452-684311 [place] [address] 03-19-2025 14:43-0400 Respiratory rate 16 /min Dr. Fabricio Lemos MD Work Phone: 6(288)971-338411 [place] [address] 03-19-2025 14:43-0400 SaO2% (BldA) [Mass fraction] 94 % Dr. Fabricio Lemos MD Work Phone: 5(100)094-871511 [place] [address] 03-19-2025 14:43-0400 Systolic blood pressure 139 mm[Hg] Dr. Fabricio Lemos MD Work Phone: 1(315)876-680911 [place] [address] 03-16-2025 12:14-0400 Body weight 65.[address] Fabricio Lemos MD Work Phone: 3(967)241-591211 [place] [address] 03-16-2025 09:15-0400 Body height 160.[address] Fabricio Lemos MD Work Phone: 1(081)824-590611 [place] [address] 03-16-2025 09:15-0400 Body mass index (BMI) [Ratio] 25.4 kg/m2 Dr. Fabricio Lemos MD Work Phone: 9(125)545-995511 [place] [address] 03-16-2025 09:15-0400 Body temperature 97.3 [degF] Dr. Fabricio Lemos MD Work Phone: 3(652)266-296711 [place] [address] 03-16-2025 09:15-0400 Body weight 65.[address] Fabricio Lemos MD Work Phone: 9(101)624-056911 [place] [address] 03-16-2025 09:15-0400 Diastolic blood pressure 76 mm[Hg] Dr. Fabricio Lemos MD Work Phone: 3(867)405-263311 [place] [address] 03-16-2025 09:15-0400 Heart rate 65 /min Dr. Fabricio Lemos MD Work Phone: 4(480)838-436911 [place] [address] 03-16-2025 09:15-0400 Respiratory rate 16 /min Dr. Fabricio Lemos MD Work Phone: 0([phone] [place] [address] 03-16-2025 09:15-0400 SaO2% (BldA) [Mass fraction] 92 % Dr. Fabricio Lemos MD Work Phone: 4(751)773-653611 [place] [address] 03-16-2025 09:15-0400 Systolic blood pressure 128 mm[Hg] Dr. Fabricio Lemos MD Work Phone: 3(594)096-531711 [place] [address] 02-27-2025 14:42-0400 Body temperature 98.1 [degF] Dr. Fabricio Lemos MD Work Phone: 2(681)180-385411 [place] [address] 02-27-2025 14:42-0400 Diastolic blood pressure 70 mm[Hg] Dr. Fabricio Lemos MD Work Phone: 7(429)591-199011 [place] [address] 02-27-2025 14:42-0400 Heart rate 64 /min Dr. Fabricio Lemos MD Work Phone: 8(618)393-689411 [place] [address] 02-27-2025 14:42-0400 Respiratory rate 16 /min Dr. Fabricio Lemos MD Work Phone: 8(166)280-952511 [place] [address] 02-27-2025 14:42-0400 SaO2% (BldA) [Mass fraction] 94 % Dr. Fabricio Lemos MD Work Phone: 8(551)606-016911 [place] [address] 02-27-2025 14:42-0400 Systolic blood pressure 138 mm[Hg] Dr. Fabricio Lemos MD Work Phone: 7(241)962-334711 [place] [address] 02-24-2025 09:13-0400 Body height 160.[address] Fabricio Lemos MD Work Phone: 5(053)736-605111 [place] [address] 02-24-2025 09:13-0400 Body mass index (BMI) [Ratio] 25.5 kg/m2 Dr. Fabricio Lemos MD Work Phone: 8(927)419-025711 [place] [address] 02-24-2025 09:13-0400 Body temperature 98.6 [degF] Dr. Fabricio Lemos MD Work Phone: 6(826)171-436211 [place] [address] 02-24-2025 09:13-0400 Body weight 65.[address] Fabricio Lemos MD Work Phone: 4(532)233-366211 [place] [address] 02-24-2025 09:13-0400 Diastolic blood pressure 79 mm[Hg] Dr. Fabricio Lemos MD Work Phone: 1(389)489-682311 [place] [address] 02-24-2025 09:13-0400 Heart rate 63 /min Dr. Fabricio Lemos MD Work Phone: 6(751)771-839511 [place] [address] 02-24-2025 09:13-0400 Respiratory rate 16 /min Dr. Fabricio Lemos MD Work Phone: 3(263)576-601911 [place] [address] 02-24-2025 09:13-0400 SaO2% (BldA) [Mass fraction] 94 % Dr. Fabricio Lemos MD Work Phone: 7(761)861-188511 [place] [address] 02-24-2025 09:13-0400 Systolic blood pressure 136 mm[Hg] Dr. Fabricio Lemos MD Work Phone: 0(269)760-174911 [place] [address] 02-16-2025 09:00-0400 Body temperature 98.2 [degF] Dr. Fabricio Lemos MD Work Phone: 7(572)457-611311 [place] [address] 02-16-2025 09:00-0400 Diastolic blood pressure 58 mm[Hg] Dr. Fabricio Lemos MD Work Phone: 3(437)738-652611 [place] [address] 02-16-2025 09:00-0400 Heart rate 70 /min Dr. Fabricio Lemos MD Work Phone: 5(619)608-927711 [place] [address] 02-16-2025 09:00-0400 Respiratory rate 16 /min Dr. Fabricio Lemos MD Work Phone: 6(607)464-863711 [place] [address] 02-16-2025 09:00-0400 SaO2% (BldA) [Mass fraction] 94 % Dr. Fabricio Lemos MD Work Phone: 8(262)804-752111 [place] [address] 02-16-2025 09:00-0400 Systolic blood pressure 105 mm[Hg] Dr. Fabricio Lemos MD Work Phone: 2(902)708-533911 [place] [address] 02-16-2025 07:38-0400 Body height 160.[address] Fabricio Lemos MD Work Phone: 9(199)298-051811 [place] [address] 02-16-2025 07:38-0400 Body mass index (BMI) [Ratio] 25.7 kg/m2 Dr. Fabricio Lemos MD Work Phone: 0(526)090-661711 [place] [address] 02-16-2025 07:38-0400 Body weight [address] Fabricio Lemos MD Work Phone: 2(941)604-676411 [place] [address] 02-06-2025 12:18-0400 Body temperature 97.2 [degF] Dr. Fabricio Lemos MD Work Phone: 3(480)841-689811 [place] [address] 02-06-2025 12:18-0400 Diastolic blood pressure 82 mm[Hg] Dr. Fabricio Lemos MD Work Phone: 0(037)549-024911 [place] [address] 02-06-2025 12:18-0400 Heart rate 57 /min Dr. Fabricio Lemos MD Work Phone: 1(119)058-516011 [place] [address] 02-06-2025 12:18-0400 Respiratory rate 16 /min Dr. Fabricio Lemos MD Work Phone: 2(535)601-625911 [place] [address] 02-06-2025 12:18-0400 SaO2% (BldA) [Mass fraction] 97 % Dr. Fabricio Lemos MD Work Phone: 6(937)667-154511 [place] [address] 02-06-2025 12:18-0400 Systolic blood pressure 156 mm[Hg] Dr. Fabricio Lemos MD Work Phone: 2([phone])323-824311 [address] [place], [place] [address] 02-05-2025 12:48-0400 Body mass index (BMI) [Ratio] 26.1 kg/m2 Dr. Fabricio Lemos MD Work Phone: 0(579)891-619811 [place] [address] 02-05-2025 12:48-0400 Body weight 66.[address] Fabricio Lemos MD Work Phone: 4(394)867-020311 [place] [address] 02-03-2025 09:31-0400 Body height 160.[address] Fabricio Lemos MD Work Phone: 1(574)936-507811 [place] [address] 02-03-2025 09:31-0400 Body weight 64.[address] Fabricio Lemos MD Work Phone: 7(485)634-822111 [place] [address] 02-03-2025 09:01-0400 Body mass index (BMI) [Ratio] 25 kg/m2 Dr. Fabricio Lemos MD Work Phone: 4(826)552-436911 [place] [address] 02-03-2025 09:01-0400 Body temperature 97.4 [degF] Dr. Fabricio Lemos MD Work Phone: 1(137)886-099011 [place] [address] 02-03-2025 09:01-0400 Body weight 64.[address] Fabricio Lemos MD Work Phone: 2(833)659-728311 [place] [address] 02-03-2025 09:01-0400 Diastolic blood pressure 81 mm[Hg] Dr. Fabricio Lemos MD Work Phone: 0(391)514-595911 [place] [address] 02-03-2025 09:01-0400 Heart rate 76 /min Dr. Fabricio Lemos MD Work Phone: 5(260)122-745511 [place] [address] 02-03-2025 09:01-0400 Respiratory rate 16 /min Dr. Fabricio Lemos MD Work Phone: [facility] 02-03-2025 09:01-0400 SaO2% (BldA) [Mass fraction] 92 % Dr. Fabricio Lemos MD Work Phone: [facility] 02-03-2025 09:01-0400 Systolic blood pressure 134 mm[Hg] Dr. Fabricio Lemos MD Work Phone: [facility] 01-26-2025 13:02-0400 Body mass index (BMI) [Ratio] 24.71 kg/m2 Girish Lemos MD Work Phone: [facility] 01-26-2025 13:02-0400 Body temperature 99.3 [degF] Girish Lemos MD Work Phone: [facility] 01-26-2025 13:02-0400 Body weight 64.05 kg Girish Lemos MD Work Phone: [facility] 01-26-2025 13:02-0400 Diastolic blood pressure 66 mm[Hg] Girish Lemos MD Work Phone: [facility] 01-26-2025 13:02-0400 Heart rate 80 /min Girish Lemos MD Work Phone: [facility] 01-26-2025 13:02-0400 Respiratory rate 16 /min Girish Lemos MD Work Phone: [facility] 01-26-2025 13:02-0400 SaO2% (BldA) [Mass fraction] 95 % Girish Lemos MD Work Phone: [facility] 01-26-2025 13:02-0400 Systolic blood pressure 116 mm[Hg] Girish Lemos MD Work Phone: [facility] 01-13-2025 09:27-0400 Body mass index (BMI) [Ratio] 23.97 kg/m2 Girish Lemos MD Work Phone: [facility] 01-13-2025 09:27-0400 Body weight 62.14 kg Girish Lemos MD Work Phone: [facility] 01-13-2025 09:27-0400 Diastolic blood pressure 60 mm[Hg] Girish Lemos MD Work Phone: [facility] 01-13-2025 09:27-0400 Heart rate 72 /min Girish Lemos MD Work Phone: [facility] 01-13-2025 09:27-0400 Respiratory rate 16 /min Girish Lemos MD Work Phone: [facility] 01-13-2025 09:27-0400 SaO2% (BldA) [Mass fraction] 98 % Girish Lemos MD Work Phone: [facility] 01-13-2025 09:27-0400 Systolic blood pressure 104 mm[Hg] Girish Lemos MD Work Phone: [facility] 01-10-2025 14:35-0400 Body temperature 98.4 [degF] Dr. Fabricio Lemos MD Work Phone: [facility] 01-10-2025 14:35-0400 Diastolic blood pressure 65 mm[Hg] Dr. Fabricio Lemos MD Work Phone: [facility] 01-10-2025 14:35-0400 Heart rate 72 /min Dr. Fabricio Lemos MD Work Phone: [facility] 01-10-2025 14:35-0400 Respiratory rate 14 /min Dr. Fabricio Lemos MD Work Phone: [facility] 01-10-2025 14:35-0400 SaO2% (BldA) [Mass fraction] 94 % Dr. Fabricio Lemos MD Work Phone: [facility] 01-10-2025 14:35-0400 Systolic blood pressure 118 mm[Hg] Dr. Fabricio Lemos MD Work Phone: 1(864)639-256199 [place] [address] 01-10-2025 13:49-0400 Body height 160.[address] Fabricio Lemos MD Work Phone: 5(562)714-791711 [place] [address] 01-10-2025 13:49-0400 Body weight 65.[address] Fabricio Lemos MD Work Phone: 5(326)159-885811 [place] [address] 01-10-2025 08:31-0400 Inhaled oxygen flow rate 2 L/min Dr. Fabricio Lemos MD Work Phone: 7(257)387-078711 [place] [address] 01-10-2025 03:07-0400 Body mass index (BMI) [Ratio] 25.7 kg/m2 Dr. Fabricio Lemos MD Work Phone: 0(375)722-080311 [place] [address] 01-08-2025 14:51-0400 Diastolic blood pressure 74 mm[Hg] Dr. Fabricio Lemos MD Work Phone: 5(817)923-776411 [place] [address] 01-08-2025 14:51-0400 Heart rate 57 /min Dr. Fabricio Lemos MD Work Phone: 4(597)788-608011 [place] [address] 01-08-2025 14:51-0400 Respiratory rate 16 /min Dr. Fabricio Lemos MD Work Phone: 7(440)154-159311 [place] [address] 01-08-2025 14:51-0400 Systolic blood pressure 156 mm[Hg] Dr. Fabricio Lemos MD Work Phone: 9(019)718-778011 [place] [address] 01-08-2025 12:54-0400 Body temperature 97.1 [degF] Dr. Fabricio Lemos MD Work Phone: 4(302)082-104211 [place] [address] 01-08-2025 12:54-0400 SaO2% (BldA) [Mass fraction] 97 % Dr. Fabricio Lemos MD Work Phone: 5(506)690-894111 [place] [address] 01-06-2025 08:55-0400 Body mass index (BMI) [Ratio] 24.4 kg/m2 Dr. Fabricio Lemos MD Work Phone: 5(857)021-753911 [place] [address] 01-06-2025 08:55-0400 Body temperature 97 [degF] Dr. Fabricio Lemos MD Work Phone: 4(586)957-536999 [place] [address] 01-06-2025 08:55-0400 Body weight 62.[address] Fabricio Lemos MD Work Phone: 5(099)742-261611 [place] [address] 01-06-2025 08:55-0400 Diastolic blood pressure 80 mm[Hg] Dr. Fabricio Lemos MD Work Phone: 6(067)197-345711 [place] [address] 01-06-2025 08:55-0400 Heart rate 71 /min Dr. Fabricio Lemos MD Work Phone: 9(992)393-770111 [place] [address] 01-06-2025 08:55-0400 Respiratory rate 16 /min Dr. Fabricio Lemos MD Work Phone: 8(015)392-499311 [place] [address] 01-06-2025 08:55-0400 SaO2% (BldA) [Mass fraction] 95 % Dr. Fabricio Lemos MD Work Phone: 8(007)782-201711 [place] [address] 01-06-2025 08:55-0400 Systolic blood pressure 127 mm[Hg] Dr. Fabricio Lemos MD Work Phone: 0(301)811-629711 [place] [address] 12-29-2024 13:46-0400 Body mass index (BMI) [Ratio] 24.4 kg/m2 Dr. Fabricio Lemos MD Work Phone: 9(276)471-261811 [place] [address] 12-29-2024 13:46-0400 Body temperature 98.2 [degF] Dr. Fabricio Lemos MD Work Phone: 7(013)297-622711 [place] [address] 12-29-2024 13:46-0400 Body weight 62.[address] Fabricio Lemos MD Work Phone: 5(247)319-502011 [place] [address] 12-29-2024 13:46-0400 Diastolic blood pressure 74 mm[Hg] Dr. Fabricio Lemos MD Work Phone: 0(701)783-818611 [place] [address] 12-29-2024 13:46-0400 Heart rate 69 /min Dr. Fabricio Lemos MD Work Phone: 6(895)587-169711 [place] [address] 12-29-2024 13:46-0400 Respiratory rate 16 /min Dr. Fabricio Lemos MD Work Phone: 5(242)074-407511 [place] [address] 12-29-2024 13:46-0400 SaO2% (BldA) [Mass fraction] 93 % Dr. Fabricio Lemos MD Work Phone: 8(432)873-025511 [place] [address] 12-29-2024 13:46-0400 Systolic blood pressure 121 mm[Hg] Dr. Fabricio Lemos MD Work Phone: 6(322)876-086211 [place] [address] 12-16-2024 08:51-0400 Body mass index (BMI) [Ratio] 25.7 kg/m2 Dr. Fabricio Lemos MD Work Phone: 1(590)966-147611 [place] [address] 12-16-2024 08:51-0400 Body temperature 98.4 [degF] Dr. Fabricio Lemos MD Work Phone: 6(406)032-504311 [place] [address] 12-16-2024 08:51-0400 Body weight 65.[address] Fabricio Lemos MD Work Phone: 5(940)868-760511 [place] [address] 12-16-2024 08:51-0400 Diastolic blood pressure 79 mm[Hg] Dr. Fabricio Lemos MD Work Phone: 1(183)071-455911 [place] [address] 12-16-2024 08:51-0400 Heart rate 71 /min Dr. Fabricio Lemos MD Work Phone: 8(522)295-798011 [place] [address] 12-16-2024 08:51-0400 Respiratory rate 14 /min Dr. Fabricio Lemos MD Work Phone: 5(734)826-533311 [place] [address] 12-16-2024 08:51-0400 SaO2% (BldA) [Mass fraction] 93 % Dr. Fabricio Lemos MD Work Phone: 6(938)720-094211 [place] [address] 12-16-2024 08:51-0400 Systolic blood pressure 144 mm[Hg] Dr. Fabricio Lemos MD Work Phone: 4(001)362-835111 [place] [address] 12-12-2024 12:35-0400 Body temperature 98.2 [degF] Dr. Fabricio Lemos MD Work Phone: 8(399)258-901311 [place] [address] 12-12-2024 12:35-0400 Diastolic blood pressure 67 mm[Hg] Dr. Fabricio Lemos MD Work Phone: 4(755)839-300211 [place] [address] 12-12-2024 12:35-0400 Heart rate 80 /min Dr. Fabricio Lemos MD Work Phone: 5(707)474-899611 [place] [address] 12-12-2024 12:35-0400 Inhaled oxygen flow rate 2 L/min Dr. Fabricio Lemos MD Work Phone: 2(504)113-188511 [place] [address] 12-12-2024 12:35-0400 Respiratory rate 18 /min Dr. Fabricio Lemos MD Work Phone: 2(739)657-602911 [place] [address] 12-12-2024 12:35-0400 SaO2% (BldA) [Mass fraction] 95 % Dr. Fabricio Lemos MD Work Phone: 8(849)330-179311 [place] [address] 12-12-2024 12:35-0400 Systolic blood pressure 121 mm[Hg] Dr. Fabricio Lemos MD Work Phone: 0(448)782-255911 [place] [address] 12-12-2024 10:51-0400 Body height 160.[address] Fabricio Lemos MD Work Phone: 7(579)142-180011 [place] [address] 12-12-2024 10:51-0400 Body mass index (BMI) [Ratio] 26.2 kg/m2 Dr. Fabricio Lemos MD Work Phone: 0(439)668-703911 [place] [address] 12-12-2024 10:51-0400 Body weight [address] Fabricio Lemos MD Work Phone: 3(615)891-596311 [place] [address] 12-10-2024 12:46-0400 Body height 160.[address] Fabricio Lemos MD Work Phone: 5(531)869-081111 [place] [address] 12-10-2024 12:46-0400 Body mass index (BMI) [Ratio] 26.7 kg/m2 Dr. Fabricio Lemos MD Work Phone: 6(502)957-253411 [place] [address] 12-10-2024 12:46-0400 Body weight 68.[address] Fabricio Lemos MD Work Phone: 6(197)862-885511 [place] [address] 12-10-2024 12:46-0400 Diastolic blood pressure 71 mm[Hg] Dr. Fabricio Lemos MD Work Phone: 6(925)998-146611 [place] [address] 12-10-2024 12:46-0400 Heart rate 81 /min Dr. Fabricio Lemos MD Work Phone: 0(343)071-458511 [place] [address] 12-10-2024 12:46-0400 Respiratory rate 17 /min Dr. Fabricio Lemos MD Work Phone: 7(448)006-339111 [place] [address] 12-10-2024 12:46-0400 SaO2% (BldA) [Mass fraction] 93 % Dr. Fabricio Lemos MD Work Phone: 5(988)801-361511 [place] [address] 12-10-2024 12:46-0400 Systolic blood pressure 135 mm[Hg] Dr. Fabricio Lemos MD Work Phone: 0(522)792-957111 [place] [address] 12-09-2024 10:45-0400 Body mass index (BMI) [Ratio] 26.7 kg/m2 Dr. Fabricio Lemos MD Work Phone: 1(799)045-967511 [place] [address] 12-09-2024 10:45-0400 Body temperature 97.8 [degF] Dr. Fabricio Lemos MD Work Phone: 6(735)783-019911 [place] [address] 12-09-2024 10:45-0400 Body weight 68.[address] Fabricio Lemos MD Work Phone: 8(134)736-811711 [place] [address] 12-09-2024 10:45-0400 Diastolic blood pressure 73 mm[Hg] Dr. Fabricio Lemos MD Work Phone: 9(990)352-534611 [place] [address] 12-09-2024 10:45-0400 Heart rate 77 /min Dr. Fabricio Lemos MD Work Phone: 9(376)279-079611 [place] [address] 12-09-2024 10:45-0400 Respiratory rate 16 /min Dr. Fabricio Lemos MD Work Phone: 9(149)725-134911 [place] [address] 12-09-2024 10:45-0400 SaO2% (BldA) [Mass fraction] 93 % Dr. Fabricio Lemos MD Work Phone: 9(756)367-723511 [place] [address] 12-09-2024 10:45-0400 Systolic blood pressure 125 mm[Hg] Dr. Fabricio Lemos MD Work Phone: 9(604)348-350111 [place] [address] 12-02-2024 13:20-0400 Body mass index (BMI) [Ratio] 28 kg/m2 Dr. Fabricio Lemos MD Work Phone: 2(693)821-479011 [place] [address] 12-02-2024 13:20-0400 Body temperature 97.8 [degF] Dr. Fabricio Lemos MD Work Phone: 4(527)570-685911 [place] [address] 12-02-2024 13:20-0400 Body weight 71.[address] Fabricio Lemos MD Work Phone: 6(572)964-739011 [place] [address] 12-02-2024 13:20-0400 Diastolic blood pressure 77 mm[Hg] Dr. Fabricio Lemos MD Work Phone: 5(395)806-029011 [place] [address] 12-02-2024 13:20-0400 Heart rate 78 /min Dr. Fabricio Lemos MD Work Phone: 2(517)454-740111 [place] [address] 12-02-2024 13:20-0400 Respiratory rate 16 /min Dr. Fabricio Lemos MD Work Phone: 0(695)515-850911 [place] [address] 12-02-2024 13:20-0400 SaO2% (BldA) [Mass fraction] 94 % Dr. Fabricio Lemos MD Work Phone: 5(826)110-703811 [place] [address] 12-02-2024 13:20-0400 Systolic blood pressure 128 mm[Hg] Dr. Fabricio Lemos MD Work Phone: 8(512)374-197011 [place] [address] 11-28-2024 08:45-0400 Body temperature 96.2 [degF] Dr. Fabricio Lemos MD Work Phone: 3(906)583-935111 [place] [address] 11-28-2024 08:45-0400 Diastolic blood pressure 69 mm[Hg] Dr. Fabricio Lemos MD Work Phone: 4(069)228-673811 [place] [address] 11-28-2024 08:45-0400 Heart rate 82 /min Dr. Fabricio Lemos MD Work Phone: 3(685)978-601411 [place] [address] 11-28-2024 08:45-0400 Respiratory rate 16 /min Dr. Fabricio Lemos MD Work Phone: 9(697)718-929311 [place] [address] 11-28-2024 08:45-0400 SaO2% (BldA) [Mass fraction] 94 % Dr. Fabricio Lemos MD Work Phone: 6(693)083-917911 [place] [address] 11-28-2024 08:45-0400 Systolic blood pressure 120 mm[Hg] Dr. Fabricio Lemos MD Work Phone: 8(075)248-318511 [place] [address] 11-26-2024 08:22-0400 Inhaled oxygen flow rate 2 L/min Dr. Fabricio Lemos MD Work Phone: 9(501)285-824011 [place] [address] 11-26-2024 08:21-0400 Body mass index (BMI) [Ratio] 28.5 kg/m2 Dr. Fabricio Lemos MD Work Phone: 1(774)094-960911 [place] [address] 11-24-2024 16:29-0400 Body weight 70.[address] Fabricio Lemso MD Work Phone: 7(120)557-863011 [place] [address] 11-24-2024 15:32-0400 Body mass index (BMI) [Ratio] 27.5 kg/m2 Dr. Fabricio Lemos MD Work Phone: 9(825)119-447211 [place] [address] 11-24-2024 15:32-0400 Body temperature 97.5 [degF] Dr. Fabricio Lemos MD Work Phone: 0(042)857-262511 [place] [address] 11-24-2024 15:32-0400 Diastolic blood pressure 74 mm[Hg] Dr. Fabircio Lemos MD Work Phone: 7(496)639-358911 [place] [address] 11-24-2024 15:32-0400 Heart rate 86 /min Dr. Fabricio Lemos MD Work Phone: 2(459)277-508111 [place] [address] 11-24-2024 15:32-0400 Respiratory rate 16 /min Dr. Fabricio Lemos MD Work Phone: 9(305)283-277811 [place] [address] 11-24-2024 15:32-0400 SaO2% (BldA) [Mass fraction] 90 % Dr. Fabricio Lemos MD Work Phone: 8(195)855-668011 [place] [address] 11-24-2024 15:32-0400 Systolic blood pressure 126 mm[Hg] Dr. Fabricio Lemos MD Work Phone: 2(199)287-280711 [place] [address] 11-23-2024 17:39-0400 Diastolic blood pressure 73 mm[Hg] Dr. Fabricio Lemos MD Work Phone: 8(865)010-159711 [place] [address] 11-23-2024 17:39-0400 Heart rate 70 /min Dr. Fabricio Lemos MD Work Phone: 0(972)685-192811 [place] [address] 11-23-2024 17:39-0400 Respiratory rate 18 /min Dr. Fabricio Lemos MD Work Phone: 8(269)129-012911 [place] [address] 11-23-2024 17:39-0400 SaO2% (BldA) [Mass fraction] 98 % Dr. Fabricio Lemos MD Work Phone: 8(672)875-508911 [place] [address] 11-23-2024 17:39-0400 Systolic blood pressure 123 mm[Hg] Dr. Fabricio Lemos MD Work Phone: 5(744)071-963911 [place] [address] 11-23-2024 16:25-0400 Body mass index (BMI) [Ratio] 27.6 kg/m2 Dr. Fabricio Lemos MD Work Phone: 9(393)258-337611 [place] [address] 11-23-2024 16:25-0400 Body weight 70.[address] Fabricio Lemos MD Work Phone: 8(683)241-683311 [place] [address] 11-23-2024 15:39-0400 Body height 160.[address] Fabricio Lemos MD Work Phone: 3(792)553-480211 [place] [address] 11-23-2024 15:39-0400 Body temperature 97.5 [degF] Dr. Fabricio Lemos MD Work Phone: 4(644)264-258811 [place] [address] 11-15-2024 12:29-0500 Body temperature 98.8 [degF] Dr. Fabricio Lemos MD Work Phone: 6(285)949-196111 [place] [address] 11-15-2024 12:29-0500 Diastolic blood pressure 78 mm[Hg] Dr. Fabricio Lemos MD Work Phone: 9(039)780-544411 [place] [address] 11-15-2024 12:29-0500 Heart rate 70 /min Dr. Fabricio Lemos MD Work Phone: 6(434)366-785311 [place] [address] 11-15-2024 12:29-0500 Respiratory rate 18 /min Dr. Fabricio Lemos MD Work Phone: 6(710)920-293811 [place] [address] 11-15-2024 12:29-0500 SaO2% (BldA) [Mass fraction] 98 % Dr. Fabricio Lemos MD Work Phone: 7(448)431-110611 [place] [address] 11-15-2024 12:29-0500 Systolic blood pressure 144 mm[Hg] Dr. Fabricio Lemos MD Work Phone: 3(846)251-052111 [place] [address] 11-15-2024 05:07-0500 Body mass index (BMI) [Ratio] 30.2 kg/m2 Dr. Fabricio Lemos MD Work Phone: 2(197)507-932711 [place] [address] 11-15-2024 05:07-0500 Body weight 77.[address] Fabricio Lemos MD Work Phone: 5(209)503-534311 [place] [address] 11-14-2024 14:28-0500 Inhaled oxygen flow rate 2 L/min Dr. Fabricio Lemos MD Work Phone: 8(137)703-363911 [place] [address] 11-12-2024 08:28-0500 Body mass index (BMI) [Ratio] 27.02 kg/m2 Girish Lemos MD Work Phone: 9(783)063-143924 [place] [address] 11-12-2024 08:28-0500 Body temperature 98.29 [degF] Girish Lemos MD Work Phone: [facility] 11-12-2024 08:28-0500 Body weight 70.03 kg Girish Lemos MD Work Phone: [facility] 11-12-2024 08:28-0500 Diastolic blood pressure 64 mm[Hg] Girish Lemos MD Work Phone: [facility] 11-12-2024 08:28-0500 Heart rate 83 /min Girish Lemos MD Work Phone: [facility] 11-12-2024 08:28-0500 Respiratory rate 16 /min Girish Lemos MD Work Phone: [facility] 11-12-2024 08:28-0500 SaO2% (BldA) [Mass fraction] 93 % Girish Lemos MD Work Phone: [facility] 11-12-2024 08:28-0500 Systolic blood pressure 104 mm[Hg] Girish Lemos MD Work Phone: [facility] 11-05-2024 08:48-0500 Body height 161 cm Silas Robbins MD Work Phone: [facility] 11-05-2024 08:48-0500 Body mass index (BMI) [Ratio] 27.74 kg/m2 Silas Robbins MD Work Phone: [facility] 11-05-2024 08:48-0500 Body temperature 98.1 [degF] Silas Robbins MD Work Phone: [facility] 11-05-2024 08:48-0500 Body weight 71.89 kg Silas Robbins MD Work Phone: [facility] 11-05-2024 08:48-0500 Diastolic blood pressure 78 mm[Hg] Silas Robbins MD Work Phone: [facility] 11-05-2024 08:48-0500 Heart rate 69 /min Silas Robbins MD Work Phone: [facility] 11-05-2024 08:48-0500 SaO2% (BldA) [Mass fraction] 95 % Silas Robbins MD Work Phone: [facility] 11-05-2024 08:48-0500 Systolic blood pressure 138 mm[Hg] Silas Robbins MD Work Phone: [facility] 11-03-2024 07:46-0500 Body mass index (BMI) [Ratio] 27.4 kg/m2 Dr. Fabricio Lemos MD Work Phone: [facility] 11-03-2024 07:46-0500 Body temperature 97.3 [degF] Dr. Fabricio Lemos MD Work Phone: 2(166)634-582911 [place] [address] 11-03-2024 07:46-0500 Body weight 72.[address] Fabricio Lemos MD Work Phone: 1(937)441-133611 [place] [address] 11-03-2024 07:46-0500 Diastolic blood pressure 72 mm[Hg] Dr. Fabricio Lemos MD Work Phone: [facility] 11-03-2024 07:46-0500 Heart rate 69 /min Dr. Fabricio Lemos MD Work Phone: [facility] 11-03-2024 07:46-0500 Respiratory rate 18 /min Dr. Fabricio Lemos MD Work Phone: [facility] 11-03-2024 07:46-0500 SaO2% (BldA) [Mass fraction] 94 % Dr. Fabricio Lemos MD Work Phone: [facility] 11-03-2024 07:46-0500 Systolic blood pressure 118 mm[Hg] Dr. Fabricio Lemos MD Work Phone: [facility] 10-17-2024 12:52-0500 Body height 160 cm Girish Lemos MD Work Phone: [facility] 10-17-2024 12:52-0500 Body mass index (BMI) [Ratio] 28.7 kg/m2 Girish Lemos MD Work Phone: [facility] 10-17-2024 12:52-0500 Body temperature 97.81 [degF] Girish Lemos MD Work Phone: [facility] 10-17-2024 12:52-0500 Body weight 73.48 kg Girish Lemos MD Work Phone: [facility] 10-17-2024 12:52-0500 Diastolic blood pressure 70 mm[Hg] Girish Lemos MD Work Phone: [facility] 10-17-2024 12:52-0500 Heart rate 67 /min Girish Lemos MD Work Phone: [facility] 10-17-2024 12:52-0500 Respiratory rate 12 /min Girish Lemos MD Work Phone: [facility] 10-17-2024 12:52-0500 SaO2% (BldA) [Mass fraction] 94 % Girish Lemos MD Work Phone: [facility] 10-17-2024 12:52-0500 Systolic blood pressure 118 mm[Hg] Girish Lemos MD Work Phone: [facility] 10-16-2024 08:22-0500 Body mass index (BMI) [Ratio] 28.87 kg/m2 Oleg Fields APRN.[employer] Work Phone: [facility] 10-16-2024 08:22-0500 Body weight 73.94 kg Oleg Fields APRN.[employer] Work Phone: [facility] 10-16-2024 08:22-0500 Diastolic blood pressure 80 mm[Hg] Oleg Fields APRN.[employer] Work Phone: [facility] 10-16-2024 08:22-0500 Heart rate 74 /min Oleg Fields APRN.[employer] Work Phone: [facility] 10-16-2024 08:22-0500 Respiratory rate 14 /min Oleg Fields APRN.[employer] Work Phone: [facility] 10-16-2024 08:22-0500 Systolic blood pressure 144 mm[Hg] Oleg Fields POSITION CLASSIFICATION SPECIALIST.[employer] Work Phone: [facility] 09-19-2024 09:38-0500 Body mass index (BMI) [Ratio] 29.26 kg/m2 Girish Lemos MD Work Phone: [facility] 09-19-2024 09:38-0500 Body weight 74.93 kg Girish Lemos MD Work Phone: [facility] 09-19-2024 09:38-0500 Diastolic blood pressure 68 mm[Hg] Girish Lemos MD Work Phone: [facility] 09-19-2024 09:38-0500 Heart rate 73 /min Girish Lemos MD Work Phone: [facility] 09-19-2024 09:38-0500 Respiratory rate 18 /min Girish Lemos MD Work Phone: [facility] 09-19-2024 09:38-0500 SaO2% (BldA) [Mass fraction] 98 % Girish Lemos MD Work Phone: [facility] 09-19-2024 09:38-0500 Systolic blood pressure 124 mm[Hg] Girish Lemos MD Work Phone: [facility] 08-19-2024 10:40-0500 Diastolic blood pressure 82 mm[Hg] Jeanette Schaefferlogshai POSITION CLASSIFICATION SPECIALIST.[employer] Work Phone: [facility] Comment on above: [facility] 08-19-2024 10:40-0500 Systolic blood pressure 164 mm[Hg] Jeanette Podlogar POSITION CLASSIFICATION SPECIALIST.[employer] Work Phone: [facility] Comment on above: [facility] 08-19-2024 10:16-0500 Body mass index (BMI) [Ratio] 30.15 kg/m2 Jeanette Schaefferlogshai POSITION CLASSIFICATION SPECIALIST.[employer] Work Phone: [facility] 08-19-2024 10:16-0500 Body weight 77.2 kg Jeanette Schaefferlogshai POSITION CLASSIFICATION SPECIALIST.[employer] [facility] [facility] 08-19-2024 10:16-0500 Heart rate 58 /min Jeanette Podlogar POSITION CLASSIFICATION SPECIALIST.PRIMING POWDER PREMIX BLENDER Work Phone: [facility] 08-19-2024 10:16-0500 Respiratory rate 18 /min Jeanette Podlogar POSITION CLASSIFICATION SPECIALIST.PRIMING POWDER PREMIX BLENDER Work Phone: [facility] 08-19-2024 10:16-0500 SaO2% (BldA) [Mass fraction] 98 % Jeanette Podlogar POSITION CLASSIFICATION SPECIALIST.PRIMING POWDER PREMIX BLENDER Work Phone: [facility] 07-15-2024 10:22-0400 Diastolic blood pressure 80 mm[Hg] Jeanette Podlogar POSITION CLASSIFICATION SPECIALIST.PRIMING POWDER PREMIX BLENDER Work Phone: [facility] Comment on above: [facility] 07-15-2024 10:22-0400 Heart rate 50 /min Jeanette Podlogar POSITION CLASSIFICATION SPECIALIST.PRIMING POWDER PREMIX BLENDER Work Phone: [facility] 07-15-2024 10:22-0400 Systolic blood pressure 157 mm[Hg] Jeanette Podlogar POSITION CLASSIFICATION SPECIALIST.PRIMING POWDER PREMIX BLENDER Work Phone: [facility] Comment on above: [facility] 07-15-2024 08:53-0400 Body mass index (BMI) [Ratio] 31.01 kg/m2 Jeanette Podlogar POSITION CLASSIFICATION SPECIALIST.PRIMING POWDER PREMIX BLENDER Work Phone: [facility] 07-15-2024 08:53-0400 Body weight 79.4 kg Jeanette Podlogar POSITION CLASSIFICATION SPECIALIST.PRIMING POWDER PREMIX BLENDER Work Phone: [facility] 07-15-2024 08:53-0400 Respiratory rate 18 /min Jeanette Podlogar POSITION CLASSIFICATION SPECIALIST.PRIMING POWDER PREMIX BLENDER Work Phone: [facility] 07-15-2024 08:53-0400 SaO2% (BldA) [Mass fraction] 97 % Jeanette Podlogar POSITION CLASSIFICATION SPECIALIST.PRIMING POWDER PREMIX BLENDER Work Phone: [facility] 01-08-2024 09:14-0400 Body mass index (BMI) [Ratio] 31.74 kg/m2 Jeanette Podlogar POSITION CLASSIFICATION SPECIALIST.PRIMING POWDER PREMIX BLENDER Work Phone: [facility] 01-08-2024 09:14-0400 Body weight 81.28 kg Jeanette Podlogar POSITION CLASSIFICATION SPECIALIST.PRIMING POWDER PREMIX BLENDER Work Phone: [facility] 01-08-2024 09:14-0400 Diastolic blood pressure 84 mm[Hg] Jeanette Podlogar POSITION CLASSIFICATION SPECIALIST.PRIMING POWDER PREMIX BLENDER Work Phone: [facility] 01-08-2024 09:14-0400 Heart rate 55 /min Jeanette Podlogar POSITION CLASSIFICATION SPECIALIST.PRIMING POWDER PREMIX BLENDER Work Phone: [facility] 01-08-2024 09:14-0400 Respiratory rate 18 /min Jeanette Podlogar POSITION CLASSIFICATION SPECIALIST.PRIMING POWDER PREMIX BLENDER Work Phone: [facility] 01-08-2024 09:14-0400 SaO2% (BldA) [Mass fraction] 96 % Jeanette Podlogar POSITION CLASSIFICATION SPECIALIST.PRIMING POWDER PREMIX BLENDER Work Phone: [facility] 01-08-2024 09:14-0400 Systolic blood pressure 136 mm[Hg] Jeanette Podlogar POSITION CLASSIFICATION SPECIALIST.PRIMING POWDER PREMIX BLENDER Work Phone: [facility] 06-22-2023 08:55-0400 Body weight 80.47 kg Jeanette Podlogar POSITION CLASSIFICATION SPECIALIST.PRIMING POWDER PREMIX BLENDER Work Phone: [facility] 06-22-2023 08:55-0400 Diastolic blood pressure 80 mm[Hg] Jeanette Podlogar POSITION CLASSIFICATION SPECIALIST.PRIMING POWDER PREMIX BLENDER Work Phone: [facility] 06-22-2023 08:55-0400 Heart rate 60 /min Jeanette Podlogar POSITION CLASSIFICATION SPECIALIST.PRIMING POWDER PREMIX BLENDER Work Phone: [facility] 06-22-2023 08:55-0400 Respiratory rate 16 /min Jeanette Podlogar POSITION CLASSIFICATION SPECIALIST.PRIMING POWDER PREMIX BLENDER Work Phone: [facility] 06-22-2023 08:55-0400 SaO2% (BldA) [Mass fraction] 94 % Jeanette Podlogar POSITION CLASSIFICATION SPECIALIST.PRIMING POWDER PREMIX BLENDER Work Phone: [facility] 06-22-2023 08:55-0400 Systolic blood pressure 132 mm[Hg] Jeanette Podlogar POSITION CLASSIFICATION SPECIALIST.PRIMING POWDER PREMIX BLENDER Work Phone: [facility] 05-03-2023 08:18-0400 Body height 160.[address] Fabricio Lemos Work Phone: [facility] 05-03-2023 08:18-0400 Body weight 80.[address] Fabricio Lemos Work Phone: [facility] 05-03-2023 08:18-0400 Heart rate 67 /min Dr. Fabricio Lemos Work Phone: [facility] 05-03-2023 08:18-0400 SaO2% (BldA) [Mass fraction] 98 % Dr. Fabricio Lemos Work Phone: [facility] 03-21-2023 09:09-0400 Body weight 83.64 kg Jeanette Podlogar POSITION CLASSIFICATION SPECIALIST.PRIMING POWDER PREMIX BLENDER Work Phone: [facility] 03-21-2023 09:09-0400 Diastolic blood pressure 82 mm[Hg] Jeanette Podlogar POSITION CLASSIFICATION SPECIALIST.PRIMING POWDER PREMIX BLENDER Work Phone: [facility] 03-21-2023 09:09-0400 Heart rate 58 /min Jeanette Podlogar POSITION CLASSIFICATION SPECIALIST.PRIMING POWDER PREMIX BLENDER Work Phone: [facility] 03-21-2023 09:09-0400 Respiratory rate 16 /min Jeanette Podlogar POSITION CLASSIFICATION SPECIALIST.PRIMING POWDER PREMIX BLENDER Work Phone: [facility] 03-21-2023 09:09-0400 SaO2% (BldA) [Mass fraction] 96 % Jeanette Podlogar POSITION CLASSIFICATION SPECIALIST.PRIMING POWDER PREMIX BLENDER Work Phone: [facility] 03-21-2023 09:09-0400 Systolic blood pressure 140 mm[Hg] Jeanette Podlogar POSITION CLASSIFICATION SPECIALIST.PRIMING POWDER PREMIX BLENDER Work Phone: [facility] 03-13-2023 05:49-0400 Body mass index (BMI) [Ratio] 32.2 kg/m2 Dr. Fabricio Lemos Work Phone: [facility] 03-13-2023 05:49-0400 Body temperature 98.1 [degF] Dr. Fabricio Lemos Work Phone: [facility] 03-13-2023 05:49-0400 Body weight 82.[address] Fabricio Lemos Work Phone: [facility] 03-13-2023 05:49-0400 Diastolic blood pressure 85 mm[Hg] Dr. Fabricio Lemos Work Phone: [facility] 03-13-2023 05:49-0400 Heart rate 66 /min Dr. Fabricio Lemos Work Phone: [facility] 03-13-2023 05:49-0400 Respiratory rate 18 /min Dr. Fabricio Lemos Work Phone: [facility] 03-13-2023 05:49-0400 SaO2% (BldA) [Mass fraction] 93 % Dr. Fabricio Lemos Work Phone: [facility] 03-13-2023 05:49-0400 Systolic blood pressure 160 mm[Hg] Dr. Fabricio Lemos Work Phone: [facility] 02-20-2023 08:40-0400 Body weight 83.64 kg Jeanette Podlogar POSITION CLASSIFICATION SPECIALIST.PRIMING POWDER PREMIX BLENDER Work Phone: [facility] 02-20-2023 08:40-0400 Diastolic blood pressure 78 mm[Hg] Jeanette Podlogar POSITION CLASSIFICATION SPECIALIST.PRIMING POWDER PREMIX BLENDER Work Phone: [facility] 02-20-2023 08:40-0400 Heart rate 48 /min Jeanette Podlogar POSITION CLASSIFICATION SPECIALIST.PRIMING POWDER PREMIX BLENDER Work Phone: [facility] 02-20-2023 08:40-0400 Respiratory rate 18 /min Jeanette Podlogar POSITION CLASSIFICATION SPECIALIST.PRIMING POWDER PREMIX BLENDER Work Phone: [facility] 02-20-2023 08:40-0400 SaO2% (BldA) [Mass fraction] 95 % Jeanette Podlogar POSITION CLASSIFICATION SPECIALIST.PRIMING POWDER PREMIX BLENDER Work Phone: [facility] 02-20-2023 08:40-0400 Systolic blood pressure 148 mm[Hg] Jeanette Berrios APRN.CNP Work Phone: 3(355)400-796024 [place] [address] 09-25-2022 07:58-0500 Body height 160.[address] Fabricio Lemos Work Phone: [facility] 09-25-2022 07:58-0500 Body mass index (BMI) [Ratio] 32.8 kg/m2 Dr. Fabricio Lemos Work Phone: 4(013)[phone] [place] [address] 09-25-2022 07:58-0500 Body temperature 97.3 [degF] Dr. Fabricio Lemos Work Phone: 2(487)206-746111 [place] [address] 09-25-2022 07:58-0500 Body weight 83.[address] Fabricio Lemos Work Phone: 7(102)540-715211 [place] [address] 09-25-2022 07:58-0500 Diastolic blood pressure 79 mm[Hg] Dr. Fabricio Lemos Work Phone: 9(888)115-914299 [place] [address] 09-25-2022 07:58-0500 Heart rate 49 /min Dr. Fabricio Lemos Work Phone: 0(615)559-245011 [place] [address] 09-25-2022 07:58-0500 Respiratory rate 18 /min Dr. Fabricio Lemos Work Phone: 0(336)[phone] [place] [address] 09-25-2022 07:58-0500 SaO2% (BldA) [Mass fraction] 94 % Dr. Fabricio Lemos Work Phone: [facility] 09-25-2022 07:58-0500 Systolic blood pressure 181 mm[Hg] Dr. Fabricio Lemos Work Phone: 6(083)734-421111 [place] [address] 09-19-2022 09:11-0500 Diastolic blood pressure 70 mm[Hg] Girish Lemos MD Work Phone: [facility] 09-19-2022 09:11-0500 Heart rate 56 /min Girish Lemos MD Work Phone: [facility] 09-19-2022 09:11-0500 Respiratory rate 16 /min Girish Lemos MD Work Phone: [facility] 09-19-2022 09:11-0500 SaO2% (BldA) [Mass fraction] 96 % Girish Lemos MD Work Phone: [facility] 09-19-2022 09:11-0500 Systolic blood pressure 122 mm[Hg] Girish Lemos MD Work Phone: [facility] 09-13-2022 10:00-0500 Diastolic blood pressure 75 mm[Hg] Dr. Fabricio Lemos Work Phone: [facility] Work Phone: 09-13-2022 10:00-0500 Heart rate 58 /min Dr. Fabricio Lemos Work Phone: [facility] Work Phone: 09-13-2022 10:00-0500 Respiratory rate 12 /min Dr. Fabricio Lemos Work Phone: [facility] Work Phone: 09-13-2022 10:00-0500 SaO2% (BldA) [Mass fraction] 94 % Dr. Fabricio Lemos Work Phone: [facility] Work Phone: 09-13-2022 10:00-0500 Systolic blood pressure 118 mm[Hg] Dr. Fabricio Lemos Work Phone: [facility] Work Phone: 09-13-2022 08:00-0500 Body temperature 97.9 [degF] Dr. Fabricio Lemos Work Phone: [facility] Work Phone: 09-13-2022 06:47-0500 Body height 160.[address] Fabricio Lemos Work Phone: [facility] Work Phone: 09-13-2022 06:47-0500 Body mass index (BMI) [Ratio] 32.2 kg/m2 Dr. Fabricio Lemos Work Phone: [facility] Work Phone: 09-13-2022 06:47-0500 Body weight 82.[address] Fabricio Lemos Work Phone: [facility] Work Phone: 09-04-2022 12:45-0500 Body mass index (BMI) [Ratio] 32.5 kg/m2 Dr. Fabricio Lemos Work Phone: [facility] Work Phone: 09-04-2022 12:45-0500 Body temperature 100.4 [degF] Dr. Fabricio Lemos Work Phone: [facility] Work Phone: 09-04-2022 12:45-0500 Body weight 86.[address] Fabricio Lemos Work Phone: [facility] Work Phone: 09-04-2022 12:45-0500 Diastolic blood pressure 81 mm[Hg] Dr. Fabricio Lemos Work Phone: [facility] Work Phone: 09-04-2022 12:45-0500 Heart rate 75 /min Dr. Fabricio Lemos Work Phone: [facility] Work Phone: 09-04-2022 12:45-0500 Respiratory rate 18 /min Dr. Fabricio Lemos Work Phone: [facility] Work Phone: 09-04-2022 12:45-0500 SaO2% (BldA) [Mass fraction] 94 % Dr. Fabricio Lemos Work Phone: [facility] Work Phone: 09-04-2022 12:45-0500 Systolic blood pressure 130 mm[Hg] Dr. Fabricio Lemos Work Phone: [facility] Work Phone: 08-22-2022 09:44-0500 Body height 160 cm Jeanette Podlogar POSITION CLASSIFICATION SPECIALIST.PRIMING POWDER PREMIX BLENDER Work Phone: [facility] 08-22-2022 09:44-0500 Body weight 82.56 kg Jeanette Podlogar POSITION CLASSIFICATION SPECIALIST.PRIMING POWDER PREMIX BLENDER Work Phone: [facility] 08-22-2022 09:44-0500 Diastolic blood pressure 78 mm[Hg] Jeanette Podlogar POSITION CLASSIFICATION SPECIALIST.PRIMING POWDER PREMIX BLENDER Work Phone: [facility] 08-22-2022 09:44-0500 Heart rate 58 /min Jeanette Podlogar POSITION CLASSIFICATION SPECIALIST.PRIMING POWDER PREMIX BLENDER Work Phone: [facility] 08-22-2022 09:44-0500 SaO2% (BldA) [Mass fraction] 95 % Jeanette Podlogar POSITION CLASSIFICATION SPECIALIST.PRIMING POWDER PREMIX BLENDER Work Phone: [facility] 08-22-2022 09:44-0500 Systolic blood pressure 138 mm[Hg] Jeanette Podlogar POSITION CLASSIFICATION SPECIALIST.PRIMING POWDER PREMIX BLENDER Work Phone: [facility] 07-24-2022 17:34-0500 Body temperature 97.7 [degF] Jamaica Kira POSITION CLASSIFICATION SPECIALIST.PRIMING POWDER PREMIX BLENDER Work Phone: [facility] 07-24-2022 17:34-0500 Body weight 85.28 kg Jamaica Kira POSITION CLASSIFICATION SPECIALIST.PRIMING POWDER PREMIX BLENDER Work Phone: [facility] 07-24-2022 17:34-0500 Diastolic blood pressure 68 mm[Hg] Jamaica Kira POSITION CLASSIFICATION SPECIALIST.PRIMING POWDER PREMIX BLENDER Work Phone: [facility] 07-24-2022 17:34-0500 Heart rate 70 /min Jamaica Kira POSITION CLASSIFICATION SPECIALIST.PRIMING POWDER PREMIX BLENDER Work Phone: [facility] 07-24-2022 17:34-0500 Respiratory rate 16 /min Jamaica Kira POSITION CLASSIFICATION SPECIALIST.PRIMING POWDER PREMIX BLENDER Work Phone: [facility] 07-24-2022 17:34-0500 SaO2% (BldA) [Mass fraction] 97 % Jamaica Malone APRN.PRIMING POWDER PREMIX BLENDER Work Phone: [facility] 07-24-2022 17:34-0500 Systolic blood pressure 110 mm[Hg] Jamaica Malone APRN.PRIMING POWDER PREMIX BLENDER Work Phone: [facility] 03-23-2022 10:50-0400 Body temperature 98.71 [degF] Girish Lemos MD Work Phone: [facility] 03-23-2022 10:50-0400 Body weight 83.83 kg Girish Lemos MD Work Phone: [facility] 03-23-2022 10:50-0400 Diastolic blood pressure 84 mm[Hg] Girish Lemos MD Work Phone: [facility] 03-23-2022 10:50-0400 Heart rate 69 /min Girish Lemos MD Work Phone: [facility] 03-23-2022 10:50-0400 Respiratory rate 18 /min Girish Lemos MD Work Phone: [facility] 03-23-2022 10:50-0400 SaO2% (BldA) [Mass fraction] 95 % Girish Lemos MD Work Phone: [facility] 03-23-2022 10:50-0400 Systolic blood pressure 122 mm[Hg] Girish Lemos MD Work Phone: [facility] 01-05-2022 13:12-0400 Body height 162.[address] Fabricio Lemos Work Phone: [facility] Work Phone: 01-05-2022 13:12-0400 Body mass index (BMI) [Ratio] 33 kg/m2 Dr. Fabricio Lemos Work Phone: [facility] Work Phone: 01-05-2022 13:12-0400 Body temperature 97.2 [degF] Dr. Fabricio Lemos Work Phone: [facility] Work Phone: 01-05-2022 13:12-0400 Body weight 87.[address] Fabricio Lemos Work Phone: [facility] Work Phone: 01-05-2022 13:12-0400 Diastolic blood pressure 82 mm[Hg] Dr. Fabricio Lemos Work Phone: [facility] Work Phone: 01-05-2022 13:12-0400 Heart rate 64 /min Dr. Fabricio Lemos Work Phone: [facility] Work Phone: 01-05-2022 13:12-0400 Respiratory rate 16 /min Dr. Fabricio Lemos Work Phone: [facility] Work Phone: 01-05-2022 13:12-0400 SaO2% (BldA) [Mass fraction] 96 % Dr. Fabricio Lemos Work Phone: [facility] Work Phone: 01-05-2022 13:12-0400 Systolic blood pressure 131 mm[Hg] Dr. Fabricio Lemos Work Phone: [facility] Work Phone: 11-17-2021 12:35-0500 Diastolic blood pressure 78 mm[Hg] Dr. Fabricio Lemos Work Phone: [facility] Work Phone: 11-17-2021 12:35-0500 Heart rate 73 /min Dr. Fabricio Lemos Work Phone: [facility] Work Phone: 11-17-2021 12:35-0500 Respiratory rate 18 /min Dr. Fabricio Lemos Work Phone: [facility] Work Phone: 11-17-2021 12:35-0500 SaO2% (BldA) [Mass fraction] 94 % Dr. Fabricio Lemos Work Phone: [facility] Work Phone: 11-17-2021 12:35-0500 Systolic blood pressure 138 mm[Hg] Dr. Fabricio Lemos Work Phone: [facility] Work Phone: 11-17-2021 09:18-0500 Body mass index (BMI) [Ratio] 31.8 kg/m2 Dr. Fabricio Lemos Work Phone: [facility] Work Phone: 11-17-2021 09:18-0500 Body temperature 96.9 [degF] Dr. Fabricio Lemos Work Phone: [facility] Work Phone: 11-17-2021 09:18-0500 Body weight 81.[address] Fabricio Lemos Work Phone: [facility] Work Phone: 11-12-2021 19:00-0500 Diastolic blood pressure 77 mm[Hg] Dr. Fabricio Lemos Work Phone: [facility] Work Phone: 11-12-2021 19:00-0500 Heart rate 76 /min Dr. Fabricio Lemos Work Phone: [facility] Work Phone: 11-12-2021 19:00-0500 Respiratory rate 18 /min Dr. Fabricio Lemos Work Phone: [facility] Work Phone: 11-12-2021 19:00-0500 SaO2% (BldA) [Mass fraction] 93 % Dr. Fabricio Lemos Work Phone: [facility] Work Phone: 11-12-2021 19:00-0500 Systolic blood pressure 144 mm[Hg] Dr. Fabricio Lemos Work Phone: [facility] Work Phone: 11-12-2021 16:39-0500 Body mass index (BMI) [Ratio] 32.8 kg/m2 Dr. Fabricio Lemos Work Phone: [facility] Work Phone: 11-12-2021 16:39-0500 Body temperature 99.9 [degF] Dr. Fabricio Lemos Work Phone: [facility] Work Phone: 11-12-2021 16:39-0500 Body weight 83.[address] Fabricio Lemos Work Phone: [facility] Work Phone: Encounters Encounter Date Encounter Type Care Provider Facility Start: 04-06-2025 End: 04-06-[address] Fabricio Lemos MD Work Phone: -[facility] Start: 04-06-2025 End: 04-06-2025 Patient encounter procedure Sharda Bronson NP-[place] -[facility] Work Phone: Start: 04-06-[address] Rubi Fernandez MD -[facility] Start: 04-05-2025 End: 04-05-2025 Emergency department patient visit Dr. Fabricio Lemos MD Work Phone: -Emergency Department Work Phone: Start: 03-31-2025 End: 03-31-2025 Refill Girish Lemos MD Work Phone: [facility] Comment on above: Refill Request Start: 03-19-2025 ambulatory Sherice Tovar ty:[facility] Start: 03-19-[address] Rubi Fernandez MD -[facility] Start: 03-16-[address] Rubi Fernandez MD -[facility] Start: 03-16-2025 End: 03-16-[address] Sherice Fernandez MD -[facility] Work Phone: Start: 03-16-2025 End: 03-16-[address] Fabricio Lemos MD Work Phone: [facility] Start: 02-24-2025 End: 02-24-[address] Fabricio Lemos MD Work Phone: [facility] Work Phone: Start: 02-24-2025 End: 02-24-[address] Sherice Fernandez MD -[facility] Work Phone: Start: 02-24-2025 End: 02-24-2025 Dr. Sherice Fernandez MD -[facility] Work Phone: Start: 02-17-2025 End: 02-17-[address] Fabricio Lemos MD Work Phone: [facility] Work Phone: Start: 02-17-2025 End: 02-17-[address] Sherice Fernandez MD -Cat Scan [facility] Work Phone: Start: 02-17-2025 End: 02-17-2025 Dr. Sherice Fernandez MD -Cat Scan [facility] Work Phone: Start: 02-16-2025 End: 02-16-2025 Admission to same day surgery center Dr. Az Hoffmann MD -[facility] Start: 02-16-2025 End: 02-16-2025 Dr. Az Hoffmann MD -[facility] Start: 02-16-2025 End: 02-17-[address] Fabricio Lemos MD Work Phone: [facility] Work Phone: Start: 02-11-2025 End: 02-11-2025 Refill Girish Lemos MD Work Phone: [facility] Comment on above: Refill Request Start: 02-06-2025 Dr. Sherice hernandez MD -[facility] Start: 02-03-[address] Rubi Fernandez MD -[facility] Start: 02-03-2025 End: 02-03-[address] Sherice Fernandez MD -[facility] Work Phone: Start: 02-03-2025 End: 02-03-2025 Dr. Sherice Fernandez MD -[facility] Work Phone: Start: 02-03-2025 End: 02-03-[address] Fabricio Lemos MD Work Phone: [facility] Work Phone: Start: 01-27-2025 End: 01-27-2025 Follow-up encounter [facility]ish [facility] Start: 01-26-2025 End: 01-26-2025 Follow-up encounter Girish Lemos MD Work Phone: [facility] Comment on above: Results (Chest Xray) Start: 01-26-2025 End: 01-26-2025 Subsequent hospital visit by physician Xr [facility] [place] Work Phone: Radiology Comment on above: Viral URI with cough [J06.9] Start: 01-26-2025 End: 01-26-2025 Patient encounter procedure Girish Lemos MD Work Phone: [facility] Comment on above: Viral URI with cough (Primary Dx); Immunocompromised state (HCC) Start: 01-26-2025 End: 01-26-2025 ambulatory SILAS ROBBINS Facility:[facility] Start: 01-13-2025 End: 01-13-2025 Patient encounter procedure Girish Lemos MD Work Phone: [facility] Comment on above: Chest pain, unspecif ied type (Primary Dx); Small cell carcinoma of lung, unspecified laterality, unspecified part of lung (HCC); 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 Jassi Borden MD -[facility] Work Phone: Start: 01-10-2025 Dr. Jassi Borden MD -[facility] Work Phone: Start: 01-10-2025 ambulatory Fabricio Lemos Faci lity:[facility] Start: 01-10-2025 Non-patient / Non-visit Dr. Santi valdez MD -[facility] Start: 01-10-2025 Dr. Santi Hurd MD -[facility] Start: 01-09-2025 End: 01-09-2025 Non-patient / Non-visit Dr. Man Polo MD -[facility] Work Phone: Start: 01-09-2025 End: 01-10-2025 ambulatory Estrella Cabezas Facility:[facility] Start: 01-09-2025 End: 01-10-2025 Evaluation and management of inpatient Dr. Jassi Borden MD -Pro[facility] Care Unit Work Phone: Start: 01-09-2025 End: 01-10-[address] Fabricio Lemos MD Work Phone: [facility] Work Phone: Start: 01-09-2025 End: 01-10-2025 Dr. Jassi Borden MD -[facility] Work Phone: Start: 01-09-[address] Rubi Fernandez MD -[facility] Start: 01-06-2025 End: 01-06-[address] Sherice Fernandez MD -[facility] Work Phone: Start: 01-06-2025 End: 01-06-2025 Dr. Sherice Fernandez MD -[facility] Work Phone: Start: 01-06-2025 End: 01-06-2025 ambulatory Fabricio Lemos Facility:[facility] Start: 12-29-2024 End: 12-29-2024 Patient encounter procedure Sahrda Audie SYSTEM CONTROLLER-C -[facility] Work Phone: Start: 12-29-2024 End: 12-29-2024 Sharda Audie SYSTEM CONTROLLER-C -[facility] Work Phone: Start: 12-29-2024 End: 12-29-2024 ambulatory Sharda Audie SYSTEM CONTROLLER Facility:[facility] Start: 12-22-2024 End: 12-22-2024 Patient encounter procedure Kristen Mattson PA-C -[facility] Work Phone: Start: 12-22-2024 End: 12-22-2024 [facility] Work Phone: Start: 12-22-2024 End: 12-22-2024 ambulatory Fabricio Lemos Facility:[facility] Start: 12-16-2024 End: 12-16-2024 Patient encounter procedure Sharda Audie SYSTEM CONTROLLER-C -[facility] Work Phone: Start: 12-16-2024 End: 12-16-2024 Sharda Audie SYSTEM CONTROLLER-C -[facility] Work Phone: Start: 12-16-2024 End: 12-16-2024 ambulatory Sharda Audie SYSTEM CONTROLLER Facility:[facility] Start: 12-15-2024 End: 12-15-2024 Refill Girish Lemos MD Work Phone: [facility] Comment on above: Encounter not needed Refill Request Start: 12-12-2024 ambulatory Fabricio Lemos Faci lity:[facility] Start: 12-12-2024 Non-patient / Non-visit Dr. Stefan Sorto MD -[facility] Start: 12-12-2024 Dr. Yeimi ramos MD -[facility] Start: 12-12-2024 End: 12-12-2024 Admission to same day surgery center Dr. Yeimi Sorto MD -[facility] Start: 12-12-2024 End: 12-12-2024 Dr. Yeimi Sorto MD -[facility] Start: 12-12-2024 End: 12-12-[address] Fabricio Lemos MD Work Phone: [facility] Work Phone: Start: 12-10-2024 End: 12-10-2024 Patient encounter procedure Dr. Yeimi Sorto MD -[facility] Work Phone: Start: 12-10-2024 End: 12-10-2024 Dr. Yeimi Sorto MD -[facility] Work Phone: Start: 12-10-2024 End: 12-10-2024 ambulatory Fabricio Lemos Facility[place] Start: 12-09-[address] Rubi Fernandez MD -[facility] Start: 12-09-2024 End: 12-09-2024 Patient encounter procedure Sharda Audie SYSTEM CONTROLLER-C -[facility] Work Phone: Start: 12-09-2024 End: 12-09-2024 Sharda Audie SYSTEM CONTROLLER-C -[facility] Work Phone: Start: 12-09-2024 End: 12-09-2024 ambulatory Sharda Audie SYSTEM CONTROLLER Facility:[facility] Start: 12-03-2024 End: 12-03-[address] Fabricio Lemos MD Work Phone: [facility] Work Phone: Start: 12-03-2024 End: 12-03-[address] Sherice Fernandez MD -[facility] Work Phone: Start: 12-03-2024 End: 12-03-2024 Dr. Sherice Fernandez MD -[facility] Work Phone: Start: 12-02-2024 End: 12-02-2024 Patient encounter procedure Sharda Audie SYSTEM CONTROLLER-C -[facility] Work Phone: Start: 12-02-2024 End: 12-02-2024 Shrada Bronson NP- -[facility] Work Phone: Start: 12-02-2024 End: 12-03-2024 ambulatory Sherice Fernandez Facility:[facility] Start: 11-24-2024 End: 11-24-[address] Sherice Fernandez MD -[facility] Work Phone: Start: 11-24-2024 End: 11-24-2024 Dr. Sherice Fernandez MD -[facility] Work Phone: Start: 11-24-2024 End: 11-24-2024 ambulatory Roxann Gomez NP Facility:[facility] Start: 11-23-2024 End: 11-23-2024 Dr. Alex Mercado MD -Emergency [facility] t Work Phone: Start: 11-23-2024 End: 11-23-2024 Emergency department patient visit Dr. Fabricio Lemos MD Work Phone: -Emergency Department Work Phone: Start: 11-15-2024 Non-patient / Non-visit Dr. Mae Horton DO [facility] Work Phone: Start: 11-15-2024 Dr. Mae Horton DO [facility] Work Phone: Start: 11-14-2024 Non-patient / Non-visit Dr. Mae Horton DO [facility] Work Phone: Start: 11-14-2024 Dr. Mae Horton [facility] Inpatient Physicians Work Phone: Start: 11-13-2024 Non-patient / Non-visit Dr. Mae Horton DO [facility] Work Phone: Start: 11-13-2024 [facility]. [facility] Work Phone: Start: 11-12-2024 Non-patient / Non-visit Dr. Mae Horton DO [facility] Work Phone: Start: 11-12-2024 End: 11-15-2024 ambulatory Mae Horton Facility:[facility] Start: 11-12-2024 End: 11-15-2024 Evaluation and management of inpatient Dr. Mae Horton DO -Pro[facility] Care Unit Work Phone: Start: 11-12-2024 End: 11-15-2024 Dr. Mae Horton DO -[facility] Work Phone: Start: 11-12-2024 End: 11-12-2024 ambulatory GIRISH LEMOS Facility:[facility] Start: 11-12-2024 End: 11-12-2024 Patient encounter procedure Girish Lemos MD Work Phone: [facility] Comment on above: Generalized abdomina l pain (Primary Dx); Weight loss; Liver masses; Lung mass; Abnormal MRI, liver; Nausea and vomiting, unspecified vomiting type; Diarrhea, unspecified type; Dehydration; BRBPR (bright red blood per rectum) Start: 11-11-2024 End: 11-11-2024 Patient encounter procedure Roxann Gomez SYSTEM CONTROLLER-C -[facility] Start: 11-11-2024 End: 11-11-2024 Roxann Gomez SYSTEM CONTROLLER-C -[facility] Start: 11-11-2024 End: 11-11-2024 ambulatory Roxann Gomez NP Facility:[facility] Start: 11-05-2024 End: 11-13-2024 Telephone encounter Silas Robbins MD Work Phone: Hematology/Oncology Start: 11-05-2024 End: 11-05-2024 ambulatory Silas Robbins MD Work Phone: Hematology/Oncology Comment on above: Liver masses Start: 11-05-2024 End: 11-05-2024 Patient encounter procedure Silas Robbins MD Work Phone: Hematology/Oncology Start: 11-04-2024 End: 11-12-2024 Telephone encounter Girish Lemos MD Work Phone: [facility] Comment on above: Return Call Request Start: 11-03-2024 End: 11-03-2024 Telephone encounter Silas Robbins MD Work Phone: Hematology/Oncology Start: 11-03-2024 End: 11-03-2024 Patient encounter procedure Roxann Gomez SYSTEM CONTROLLER-C -[facility] Work Phone: Start: 11-03-2024 End: 11-03-2024 Roxann Gomez SYSTEM CONTROLLER-C -[facility] Work Phone: Start: 11-03-2024 End: 11-03-2024 ambulatory Roxann Gomez SYSTEM CONTROLLER Facility[facility] Start: 10-31-2024 End: 11-03-2024 Telephone encounter Girish Lemos MD Work Phone: [facility] [place] Comment on above: requesting disk Start: 10-30-2024 End: 12-30-2024 Follow-up encounter Girish Lemos MD Work Phone: [facility] [place] Comment on above: Results Start: 10-30-2024 End: 10-30-2024 Telephone encounter Girish Lemos MD Work Phone: [facility] [place] Comment on above: Patient Request Start: 10-30-2024 End: 10-30-2024 ambulatory GIRISH LEMOS Facility:[facility] Start: 10-30-2024 End: 10-30-2024 Subsequent hospital visit by physician Maxine [facility] ([facility]) Work Phone: Cat Scan Comment on above: Liver masses [R16.0] Start: 10-22-2024 End: 10-22-2024 Telephone encounter Girish Lemos MD Work Phone: [facility] [place] Comment on above: Orders Start: 10-20-2024 End: 10-31-2024 Telephone encounter Girish Lemos MD Work Phone: [facility] [place] Comment on above: Results New Patient Start: 10-17-2024 End: 10-20-2024 Telephone encounter Mahnaz URIBE Navigation Start: 10-17-2024 End: 10-17-2024 ambulatory GIRISH LEMOS Facility:[facility] Start: 10-17-2024 End: 10-17-2024 Patient encounter procedure Girish Lemos MD Work Phone: [facility] [place] Comment on above: Liver masses (Primar y Dx); RUQ abdominal pain; Nausea and vomiting, unspecified vomiting type; Diarrhea, unspecified type Start: 10-16-2024 End: 10-20-2024 Telephone encounter Oleg Fields APRN.PRIMING POWDER PREMIX BLENDER Work Phone: [facility] [place] Comment on above: Results Start: 10-16-2024 End: 10-16-2024 ambulatory GIRISH LEMOS Facility:[facility] Start: 10-16-2024 End: 10-16-2024 Subsequent hospital visit by physician Maxine [facility] ([facility]) Work Phone: Cat Scan Comment on above: Generalized abdomina l pain [R10.84] Start: 10-16-2024 End: 10-16-2024 Office outpatient visit 15 minutes Oleg Fields APRN.PRIMING POWDER PREMIX BLENDER Work Phone: [facility] [place] Comment on above: Generalized abdomina l pain (Primary Dx); Diarrhea, unspecified type; Nausea Start: 10-16-2024 End: 10-16-2024 ambulatory GIRISH LEMOS Facility:[facility] Start: 10-15-2024 End: 10-15-2024 ambulatory Girish Lemos MD Work Phone: [facility] [place] Comment on above: Abdominal Pain Start: 09-19-2024 End: 09-19-2024 Patient encounter procedure Girish Lemos MD Work Phone: [facility] [place] Comment on above: Primary hypertension (Primary Dx) Start: 09-19-2024 End: 09-19-2024 ambulatory GIRISH LEMOS Facility:[facility] Start: 08-27-2024 End: 08-27-2024 Telephone encounter Girish Lemos MD Work Phone: [facility] [place] Comment on above: Patient Update Start: 08-19-2024 End: 08-19-2024 Patient encounter procedure Jeanette Podlogar POSITION CLASSIFICATION SPECIALIST.PRIMING POWDER PREMIX BLENDER Work Phone: [facility] [place] Comment on above: Essential hypertensi on Start: 08-19-2024 End: 08-19-2024 ambulatory JEANETTE PODLOGAR Facility:[facility] Start: 07-15-2024 End: 07-15-2024 ambulatory JEANETTE PODLOGAR Facility:[facility] Start: 07-15-2024 End: 07-15-2024 Patient encounter procedure Jeanette Podlogar POSITION CLASSIFICATION SPECIALIST.PRIMING POWDER PREMIX BLENDER Work Phone: [facility] [place] Comment on above: Essential hypertensi on (Primary Dx); Non-seasonal allergic rhinitis, unspecified trigger; Encounter for immunization; Hyperlipidemia, unspecified hyperlipidemia type; Prediabetes; Stage 3 chronic kidney disease, unspecified whether stage 3a or 3b CKD (HCC); Pulmonary hypertension (HCC); First degree AV block; Acquired hypothyroidism Start: 07-15-2024 End: 07-15-2024 ambulatory JEANETTE PODLOGAR Facility:[facility] Start: 07-11-2024 End: 07-11-2024 Refill [facility] Comment on above: Refill Request Start: 06-25-2024 End: 06-30-2024 ambulatory Girish Lemos MD Work Phone: Internal Medicine [place] [id number] Start: 06-16-2024 End: 06-16-2024 ambulatory Roxann Gomez SYSTEM CONTROLLER Facility[facility] Start: 06-13-2024 End: 06-13-2024 ambulatory RICHARD ERNANDEZ [facility] Start: 06-02-2024 End: 06-02-2024 ambulatory Az Hoffmann Facility:[facility] Start: 04-28-2024 Refill Girish Lemos MD Work Phone: [facility] [place] Comment on above: Refill Request Start: 04-08-2024 End: 04-08-2024 ambulatory Roxann Gomez SYSTEM CONTROLLER Facility:[facility] Start: 04-01-2024 ambulatory Matthew Beard cility:[facility] Start: 04-01-2024 End: 04-01-2024 ambulatory Roxann Gomez NP Facility:[facility] Start: 03-06-2024 End: 03-06-2024 ambulatory RICHARD ERNANDEZ [facility] Start: 01-21-2024 Telephone encounter Jeanette kirkland APRN.PRIMING POWDER PREMIX BLENDER Work Phone: [facility] Comment on above: Results Start: 01-21-2024 End: 01-21-2024 ambulatory [facility] Work Phone: Start: 01-21-2024 End: 01-21-2024 Patient encounter procedure [facility] Work Phone: Start: 01-08-2024 End: 01-08-2024 Patient encounter procedure Jeanette Berrios APRN.PRIMING POWDER PREMIX BLENDER Work Phone: [facility] Comment on above: Essential hypertensi on (Primary Dx); Non-seasonal allergic rhinitis, unspecified trigger; Acquired hypothyroidism; Hyperlipidemia, unspecified hyperlipidemia type; Stage 3 chronic kidney disease, unspecified whether stage 3a or 3b CKD (HCC); Pulmonary hypertension (HCC); Muscle cramps Start: 10-23-2023 Refill Girish Lemos MD Work Phone: [facility] Comment on above: Refill Request Start: 07-25-2023 ambulatory Girish Lemos MD Work Phone: Internal Medicine [facility] [place] Start: 06-22-2023 End: 06-22-2023 Patient encounter procedure Jeanette Berrois APRN.PRIMING POWDER PREMIX BLENDER Work Phone: [facility] Comment on above: Essential hypertensi on (Primary Dx); Encounter for immunization; Prediabetes; Acquired hypothyroidism; Stage 3 chronic kidney disease, unspecified whether stage 3a or 3b CKD (HCC); First degree AV block Start: 06-21-2023 End: 06-21-2023 ambulatory RICHARD ERNANDEZ [facility] Start: 05-07-2023 Telephone encounter Fabricio Lemos MD Work Phone: [facility] Comment on above: Consult Start: 05-07-2023 Non-patient / Non-visit Dr. Johnny Lemos Work Phone: [facility] Start: 05-03-2023 End: 05-03-[address] Fabricio Lemos Work Phone: [facility] Work Phone: Start: 05-03-2023 End: 05-03-[address] [facility] Work [facility]: Start: 05-02-2023 Non-patient / Non-visit Dr. Johnny Lemos Work Phone: [facility] Start: 05-01-2023 End: 05-01-[address] Fabricio Lemos [facility] Work Phone: Start: 04-13-2023 Refill Girish Lemos MD Work Phone: [facility] Comment on above: Refill Request Start: 03-21-2023 End: 03-21-2023 Patient encounter procedure Jeanette Berrios APRN.PRIMING POWDER PREMIX BLENDER Work Phone: [facility] Comment on above: Primary hypertension (Primary Dx); Bradycardia; Skin eruption Start: 03-19-2023 Telephone encounter Fabricio Lemos MD Work Phone: [facility] Comment on above: Request Outside [facility] Records Start: 03-13-2023 End: 03-13-[address] [facility] Work Phone: Start: 02-21-2023 Telephone encounter Jeanette kirkland POSITION CLASSIFICATION SPECIALIST.PRIMING POWDER PREMIX BLENDER Work Phone: [facility] Comment on above: Results Start: 02-20-2023 End: 02-20-2023 Patient encounter procedure Jeanette Berrios APRN.PRIMING POWDER PREMIX BLENDER Work Phone: [facility] Comment on above: Essential hypertensi on (Primary Dx); Prediabetes; Acquired hypothyroidism; Hyperlipidemia, unspecified hyperlipidemia type; Bradycardia; First degree AV block; Stage 3 chronic kidney disease, unspecified whether stage 3a or 3b CKD ([facility]) Start: 01-24-2023 End: 01-24-2023 Patient encounter procedure Talat Martinjuany Work Phone: Podiatry Comment on above: Hammertoe of left fo ot (Primary Dx); Pain in toe of left foot; Other acute pulmonary embolism, unspecified whether acute cor pulmonale present ([facility]) Start: 01-24-2023 End: 01-24-2023 Subsequent hospital visit by physician Xr [facility] Work Phone: Radiology Comment on above: Pain [R52] Start: 01-18-2023 End: 01-18-[address] Fabricio Lemos Work Phone: [facility] Work Phone: Start: 01-18-2023 End: 01-18-[address] Fabricio Lemos Work Phone: [facility] Start: 09-25-2022 End: 09-25-[address] Fabricio Lemos Work Phone: [facility] Start: 09-22-2022 Telephone encounter Jeanette kirkland APRN.PRIMING POWDER PREMIX BLENDER Work Phone: [facility] Comment on above: Results Start: 09-20-2022 End: 09-20-2022 Subsequent hospital visit by physician [facility] D[facility] Work Phone: Radiology Comment on above: Screening for osteop orosis [Z13.820] Start: 09-19-2022 End: 09-19-2022 Patient encounter procedure Girish Lemos MD Work Phone: [facility] Comment on above: Skin tag (Primary Dx ); S/P cryotherapy of skin lesion Start: 09-13-2022 End: 09-13-2022 Emergency department patient visit Dr. Fabricio Lemos Work Phone: [facility]-Emergency Department Start: 09-08-2022 Telephone encounter Fabricio Lemos MD Work Phone: [facility] Comment on above: Medication Request Start: 09-04-2022 End: 09-04-[address] Fabricio Lem[facility] Start: 08-23-2022 Telephone encounter Jeanette kirkland POSITION CLASSIFICATION SPECIALIST.PRIMING POWDER PREMIX BLENDER Work Phone: [facility] Comment on above: Results Start: 08-22-2022 End: 08-22-2022 Patient encounter procedure Jeanette Berrios APRN.PRIMING POWDER PREMIX BLENDER Work Phone: [facility] Comment on above: Essential hypertensi on (Primary Dx); Encounter for immunization; Prediabetes; Hyperlipidemia, unspecified hyperlipidemia type; Acquired hypothyroidism; Ringworm of body; Screening for osteoporosis; Gastroesophageal reflux disease without esophagitis; Dyspareunia in female; Abnormal vaginal bleeding in postmenopausal patient Start: 08-17-2022 ambulatory Girish Lemos MD Work Phone: Internal Medicine [facility] Start: 08-04-2022 Refill Girish Lemos MD Work Phone: [facility] Comment on above: Refill Request Start: 07-26-2022 Telephone encounter Rosie Mcintosh APRN.PRIMING POWDER PREMIX BLENDER Work Phone: [facility] Comment on above: Results Start: 07-24-2022 End: 07-24-2022 Patient encounter procedure Jamaica Malone POSITION CLASSIFICATION SPECIALIST.PRIMING POWDER PREMIX BLENDER Work Phone: [facility] Comment on above: Gross hematuria ([place] ching Dx); Acute vaginitis; Vulvar irritation Start: 07-24-2022 ambulatory Girish Lemos MD Work Phone: [facility] Comment on above: urinary symptoms Start: 03-23-2022 ambulatory Girish Lemos MD Work Phone: [facility] Comment on above: Cough Start: 03-23-2022 End: 03-23-2022 Patient encounter procedure Girish Lemos MD Work Phone: [facility] Comment on above: Suspected COVID-19 v irus infection (Primary Dx); Non-seasonal allergic rhinitis, unspecified trigger Start: 02-22-2022 Refill Girish Lemos MD Work Phone: [facility] Comment on above: Refill Request Start: 01-18-2022 End: 01-18-[address] Fabricio Lemos Work Phone: [facility] Start: 01-05-2022 End: 01-05-[address] Fabricio Lem[facility] Start: 11-25-2021 End: 11-25-2021 Subsequent hospital visit by physician Xr [facility] Work Phone: Radiology Comment on above: Pneumonia due to inf ectious organism, unspecified laterality, unspecified part of lung [J18.9] Start: 11-17-2021 End: 11-17-2021 Emergency department patient visit Dr. Fabricio Lemos Work Phone: [facility]-Emergency Department Start: 11-15-2021 End: 11-15-2021 Subsequent hospital visit by physician Xr [facility] Work Phone: Radiology Comment on above: Fever, unspecified f ever cause [R50.9] Start: 11-12-2021 End: 11-12-2021 Emergency department patient visit Dr. Fabricio Lemos Work Phone: [facility]-Emergency Department Start: 10-06-2021 End: 10-06-[address] Fabricio Lemos Work Phone: [facility]-Sleep Lab Start: 09-08-2020 End: 09-08-2020 Patient encounter procedure [facility] Start: 09-06-2020 End: 09-06-2020 [facility] Start: 09-01-2020 End: 09-01-2020 Patient encounter procedure [facility]I [facility] Start: 08-25-2020 End: 08-25-2020 Patient encounter procedure TONI [facility] Start: 08-18-2020 End: 08-18-2020 Patient encounter procedure [facility] Procedures Date Procedure Procedure Detail Performing Clinician Start: 04-06-[address] Fabricio Lemos MD Work Phone: Start: 04-06-2025 Serum inorganic phos phate measurement Dr. Fabricio Lemos MD Work Phone: Start: 04-05-[address] Fabricio Lemos MD Work Phone: Start: 04-05-2025 Computerized axial tomography of lumbar spine with contrast Dr. Fabricio Lemos MD Work Phone: Start: 03-16-[address] Fabricio [...] Nucleated red blood cell count procedure Dr. Fabircio Lemos MD Work Phone: Start: 02-03-2025 Platelet [...] Nucleated red blood cell count procedure Dr. Fbaricio Lemos MD Work Phone: Start: 11-13-2024 Serum [...] abdomen & pelvis w/contrast material Oleg Fields POSITION CLASSIFICATION SPECIALIST.PRIMING POWDER PREMIX BLENDER Work Phone: Start: 01-21-2024 CT of chest Start: 06-22-2023 INFLUENZA VACCINE, P RSV FREE, AGE 65+ YR, HIGH DOSE, QUADRIVALENT (FLUZONE HIGH-DOSE) Jeanette Schaefferlogshai POSITION CLASSIFICATION SPECIALIST.PRIMING POWDER PREMIX BLENDER Work Phone: Start: 02-20-2023 Ecg routine ecg w/le ast 12 lds i&r only [facility] Provider Start: 02-20-2023 Lipid 1996 panel - S anahi or Plasma Jeanette Schaefferlogshai POSITION CLASSIFICATION SPECIALIST.PRIMING POWDER PREMIX BLENDER Work Phone: Start: 01-24-2023 Radex foot complete minimum 3 views Talat Veronicajuany Work Phone: Start: 01-18-[address] Fili Lemos Work Phone: Start: 09-20-2022 Dxa bone density tripp dy 1/> sites axial skel Jeanette Berrios POSITION CLASSIFICATION SPECIALIST.PRIMING POWDER PREMIX BLENDER Work Phone: Start: 09-13-2022 Plain chest X-ray Dr. Ansley Lemos Work Phone: Start: 08-22-2022 INFLUENZA SEASONAL QUADRIVALENT HIGH DOSE AGE 65+ Jeanette Podlogar POSITION CLASSIFICATION SPECIALIST.PRIMING POWDER PREMIX BLENDER Work Phone: Start: 07-24-2022 Urnls dip stick/tabl et rgnt auto w/o microscopy Jamaica Malone POSITION CLASSIFICATION SPECIALIST.PRIMING POWDER PREMIX BLENDER Work Phone: Start: 03-23-2022 2019 CORONAVIRUS Fili Lemos MD Work Phone: Start: 01-18-[address] Fili Lemos Work Phone: Start: 11-25-2021 Radiologic exam ches t 2 views Girish Lemos MD Work Phone: Start: 11-17-2021 Plain chest X-ray Dr. Ansley Lemos Work Phone: Start: 11-15-2021 Radiologic exam ches t 2 views Jeanette Schaefferlogshai POSITION CLASSIFICATION SPECIALIST.PRIMING POWDER PREMIX BLENDER Work Phone: Start: 11-12-2021 Plain chest X-ray Dr. Ansley Lemos Work Phone: Start: 11-12-2021 SARS-CoV-2 Antigen (Rapid) Dr. Fabricio Lemos Work Phone: Start: 07-16-2019 Mammography Fabricio Lemos MD Work Phone: Start: 03-28-2018 Colonoscopy Fabricio Lemos MD Work Phone: Plan of Treatment Date Care Activity Detail Author Start: 2029 RSV Vaccine (1 - 1-dose 75+ series) RSV Vaccine (1 - 1-dose 75+ series) [facility] Start: 02-21-2028 Lipid 1996 panel - Serum or Plasma Lipid Screening [facility] Start: 02-21-2028 Lipid panel Lipid Screening [facility] Start: 02-21-2028 LIPID SCREEN LIPID SCREEN [facility] Start: 10-16-2027 Diabetes Screening Diabetes Screening [facility] Start: 08-22-2027 LIPID SCREEN LIPID SCREEN [facility] Start: 07-15-2027 Diabetes Screening Diabetes Screening [facility] Start: 01-17-2027 Diabetes Screening Diabetes Screening [facility] Start: 02-20-2026 DIABETES SCREEN DIABETES SCREEN [facility] Start: 02-20-2026 Diabetes Screening Diabetes Screening [facility] Start: 01-26-2026 Annual PCP Team Chronic Disease Visit Annual PCP Team Chronic Disease Visit [facility] Start: 01-26-2026 BP Controlled (<130/80) BP Controlled (<130/80) [facility] Start: 01-13-2026 Annual PCP Team Chronic Disease Visit Annual PCP Team Chronic Disease Visit [facility] Start: 01-13-2026 BP Controlled (<130/80) BP Controlled (<130/80) [facility] Start: 11-17-2025 LIPID SCREEN LIPID SCREEN [facility] Start: 11-12-2025 Annual PCP Team Chronic Disease Visit Annual PCP Team Chronic Disease Visit [facility] Start: 11-12-2025 BP Controlled (<130/80) BP Controlled (<130/80) [facility] Start: 10-30-2025 Screening for malignant neoplasm of lung Lung Cancer Screening [facility] Start: 10-17-2025 Annual PCP Team Chronic Disease Visit Annual PCP Team Chronic Disease Visit [facility] Start: 10-17-2025 BP Controlled (<130/80) BP Controlled (<130/80) [facility] Start: 10-16-2025 Annual PCP Team Chronic Disease Visit Annual PCP Team Chronic Disease Visit [facility] Start: 10-16-2025 Creatinine measurement Serum Creatinine [facility] Start: 09-19-2025 Annual PCP Team Chronic Disease Visit Annual PCP Team Chronic Disease Visit [facility] Start: 09-19-2025 BP Controlled (<130/80) BP Controlled (<130/80) [facility] Start: 08-22-2025 DIABETES SCREEN DIABETES SCREEN [facility] Start: 08-19-2025 Annual PCP Team Chronic Disease Visit Annual PCP Team Chronic Disease Visit [facility] Start: 07-15-2025 Annual PCP Team Chronic Disease Visit Annual PCP Team Chronic Disease Visit [facility] Start: 07-15-2025 Creatinine measurement Serum Creatinine [facility] Start: 05-18-2025 Influenza vaccination Influenza Vaccine (#[facility]) [facility] Start: 04-14-2025 End: 04-14-2025 Patient encounter procedure 04/14/2025 9:40 AM EDT Office Visit [facility] [place] [address] [place] [address] Girish Lemos MD [address] [address] 3 month follow up [facility] Comment on above: 3 month follow up Start: 04-06-2025 [facility] Start: 04-06-2025 Serum inorganic phosphate measurement [facility] Start: 04-06-2025 Vital signs measurements [facility] Start: 04-05-2025 End: 04-06-2025 [facility] Start: 03-18-2025 Vital signs measurements [facility] Start: 03-17-2025 Vital signs measurements [facility] Start: 03-16-2025 [facility] Start: 03-16-2025 Vital signs measurements [facility] Start: 02-26-2025 Vital signs measurements [facility] Start: 02-25-2025 Vital signs measurements [facility] Start: 02-24-2025 [facility] Start: 02-24-2025 Vital signs measurements [facility] Start: 02-17-2025 Venous catheter care management [facility] Start: 02-16-2025 Anes dx/ther nerve block/injection prone pos [facility] Start: 02-16-2025 Njx anes&/strd w/img tfrml edrl lmbr/sac 1 lvl [facility] Start: 02-16-2025 Njx anes&/strd w/img tfrml edrl lmbr/sac ea lv [facility] Start: 02-16-2025 Injection of spinal epidural space [facility] Start: 02-16-2025 X-ray of lumbar spine, two or three views [facility] Start: 02-16-2025 Patient discharge [facility] Start: 02-05-2025 Vital signs measurements [facility] Start: 02-04-2025 Vital signs measurements [facility] Start: 02-03-2025 [facility] Start: 02-03-2025 Vital signs measurements [facility] Start: 01-20-2025 Screening for malignant neoplasm of lung Lung Cancer Screening [facility] Start: 01-17-2025 Creatinine measurement Serum Creatinine [facility] Start: 01-13-2025 End: 01-13-2025 Patient encounter procedure 01/13/2025 9:20 AM EDT Office Visit Family [facility] [place] [address] [place] [address] Girish Lemos MD [address] [place] [address] 6 month follow up Family [facility] Comment on above: 6 month follow up Start: 01-10-2025 Patient discharge [facility] Start: 01-09-2025 Continuous positive airway pressure ventilation treatment [facility] Start: 01-09-2025 Chemotherapy care management [facility] Start: 01-09-2025 Venous catheter care management [facility] Start: 01-09-2025 Assessment of risk of venous thromboembolism [facility] Start: 01-09-2025 Care regimes management [facility] Start: 01-09-2025 Incentive spirometry [facility] Start: 01-09-2025 Insertion of catheter into peripheral vein [facility] Start: 01-09-2025 Measuring intake and output [facility] Start: 01-09-2025 Notification of physician [facility] Start: 01-09-2025 Oxygen therapy [facility] Start: 01-09-2025 Providing care according to standard [facility] Start: 01-09-2025 Provision of activity privileges [facility] Start: 01-09-2025 Referral to service [facility] Start: 01-09-2025 End: 01-09-2025 [facility] Start: 01-09-2025 Admission procedure [facility] Start: 01-09-2025 [facility] Start: 01-09-2025 Chemotherapy care management [facility] Start: 01-09-2025 Inhalation therapy procedure [facility] Start: 01-09-2025 Patient referral to dietitian [facility] Start: 01-08-2025 Vital signs measurements [facility] Start: 01-07-2025 Annual PCP Team Chronic Disease Visit Annual PCP Team Chronic Disease Visit [facility] Start: 01-07-2025 Vital signs measurements [facility] Start: 01-06-2025 Patient referral [facility] Work Phone: Start: 01-06-2025 Vital signs measurements [facility] Start: 12-26-2024 End: 12-26-2024 Patient encounter procedure 12/26/2024 10:30 AM EDT Office Visit [facility] [place] [address] [place] [id number] Rachael Sheikh APRN.PRIMING POWDER PREMIX BLENDER [address] [place] [address] Abnormal MRI, liver [R93.2] [facility] Comment on above: Abnormal MRI, liver [R93.2] Start: 12-18-2024 Vital signs measurements [facility] Start: 12-17-2024 Vital signs measurements [facility] Start: 12-16-2024 Patient referral [facility] Work Phone: Start: 12-16-2024 Venous catheter care management [facility] Start: 12-16-2024 Vital signs measurements [facility] Start: 12-12-2024 Anesthesia access central venous circulation [facility] Start: 12-12-2024 Insj tunneled ctr vad w/subq port age 4 yr/> [facility] Start: 12-12-2024 [facility] Start: 12-12-2024 Patient discharge [facility] Start: 12-09-2024 Patient referral [facility] Work Phone: Start: 11-24-2024 Patient referral [facility] Work Phone: Start: 11-23-2024 [facility] Start: 11-15-2024 DIABETES SCREEN DIABETES SCREEN [facility] Start: 11-15-2024 Provision of activity privileges [facility] Start: 11-15-2024 Patient discharge [facility] Start: 11-14-2024 [facility] Start: 11-14-2024 Following clinical pathway protocol [facility] Start: 11-14-2024 Referral to service [facility] Start: 11-14-2024 End: 11-14-2024 Patient encounter procedure 11/14/2024 8:40 AM EST Office Visit Family [facility] [place] [address] [place] [address] Girish Lemos MD [address] [place] [address] 4 week follow up [facility] Comment on above: 4 week follow up Start: 11-14-2024 Catheterization of vein [facility] Start: 11-14-2024 Vital signs measurements [facility] Start: 11-13-2024 Provision of activity privileges [facility] Start: 11-12-2024 Biopsy liver needle percutaneous [facility] Start: 11-12-2024 Assessment of risk of venous thromboembolism [facility] Start: 11-12-2024 Inhalation therapy procedure [facility] Start: 11-12-2024 Insertion of catheter into peripheral vein [facility] Start: 11-12-2024 Measuring intake and output [facility] Start: 11-12-2024 Patient referral to dietitian [facility] Start: 11-12-2024 Providing care according to standard [facility] Start: 11-12-2024 Provision of activity privileges [facility] Start: 11-12-2024 Referral to occupational therapist [facility] Start: 11-12-2024 Referral to service [facility] Start: 11-12-2024 End: 11-12-2024 [facility] Start: 11-12-2024 Admission procedure [facility] Start: 11-05-2024 End: 11-05-2024 ambulatory 11/05/2024 9:00 AM EST Visit (SP) Office Hematology/Oncology [place] [address] [place] [address] [place] [address] SYSTEM CONTROLLER/LIVER MASSES/REF PROV DR LEMOS* Hematology/Oncology Comment on above: SYSTEM CONTROLLER/LIVER MASSES/REF PROV DR LEMOS* Start: 10-30-2024 End: 10-30-2024 Patient encounter procedure 10/30/2024 8:00 AM EST Appointment Cat Scan [address] [place] [address] Liver masses [R16.0] [facility] Comment on above: Liver masses [R16.0] Start: 10-22-2024 End: 10-22-2024 Patient encounter procedure 10/22/2024 3:40 PM EST Appointment [facility] [address] [place] [address] Liver masses [R16.0] [facility] Comment on above: Liver masses [R16.0] Start: 10-21-2024 End: 10-21-2024 Patient encounter procedure 10/21/2024 8:20 AM EST Appointment Cat Scan [address] [place] [address] Liver masses [R16.0] [facility] Comment on above: Liver masses [R16.0] Start: 10-20-2024 End: 10-20-2024 Patient encounter procedure 10/20/2024 11:20 AM EST Appointment Cat Scan [address] [place] [address] Liver masses [R16.0] [facility] Comment on above: Liver masses [R16.0] Start: 10-17-2024 End: 01-16-2025 [id number] [Mass/volume] in Serum or Plasma [facility] Comment on above: Expected: 10/17/2024, Expires: Start: 10-17-2024 End: 10-17-2024 Patient encounter procedure 10/17/2024 1:00 PM EST Office Visit Family Medicine [place] [address] [place] [address] Girish Lemos MD [address] [place] [address] follow up to discuss resutls [facility] [place] Comment on above: follow up to discuss resutls Start: 10-16-2024 End: 05-01-2025 Amylase [Enzymatic activity/volume] in Serum or Plasma [facility] Comment on above: Expected: 10/16/2024, Expires: Start: 10-16-2024 End: 01-15-2025 Lipase [Enzymatic activity/volume] in Serum or Plasma [facility] Work Phone: Comment on above: Expected: 10/16/2024, Expires: Start: 10-16-2024 End: 10-16-2024 Patient encounter procedure 10/16/2024 8:40 AM EST Office Visit Family Medicine [place] [address] [facility] [place] [address] Oleg Fields APRN.PRIMING POWDER PREMIX BLENDER [address] [place] [address] Abdominal Pain. See triage 10/15/2024. [facility] [place] Comment on above: Abdominal Pain. See triage 10/15/2024. Start: 09-19-2024 End: 09-19-2024 Patient encounter procedure 09/19/2024 9:40 AM EST Office Visit [facility] [place] [address] [facility] [place] [address] Girish Lemos MD [address] [place] [address] 1 month follow up [facility] Comment on above: 1 month follow up Start: 09-17-2024 Advance Directive Discussion Advance Directive Discussion [facility] Start: 09-17-2024 Medicare Advantage Annual Wellness Visit Medicare Advantage Annual Wellness Visit [facility] Start: 08-19-2024 End: 08-19-2024 Patient encounter procedure 08/19/2024 10:20 AM EST Office Visit [facility] [place] [address] [facility] [place] [address] Jeanette Berrios APRN.PRIMING POWDER PREMIX BLENDER [address] [place] [address] BP check [facility] Comment on above: BP check Start: 07-15-2024 End: 10-14-2024 Comprehensive metabolic 2000 panel - Serum or Plasma [facility] Work Phone: Comment on above: Expected: 07/15/2024, Expires: Start: 07-15-2024 End: 10-14-2024 Hemoglobin A1c in Blood [facility] Comment on above: Expected: 07/15/2024, Expires: Start: 07-15-2024 End: 07-15-2024 Patient encounter procedure 07/15/2024 9:00 AM EDT Office Visit Family Medicine [place] [address] [place] [address] PodlogarJeanette, POSITION CLASSIFICATION SPECIALIST.PRIMING POWDER PREMIX BLENDER [address] [facility] [place] [address] 6 month follow up Family [facility] [place] Comment on above: 6 month follow up Start: 07-09-2024 End: 07-09-2024 Patient encounter procedure 07/09/2024 9:40 AM EDT Office Visit Family Medicine [place] [address] [facility] [address] Podlucasar, Jeanette, POSITION CLASSIFICATION SPECIALIST.PRIMING POWDER PREMIX BLENDER [address] [place] [id number] 6 month follow up [facility] [place] Comment on above: 6 month follow up Start: 06-22-2024 Annual PCP Team Chronic Disease Visit Annual PCP Team Chronic Disease Visit [facility] Start: 06-22-2024 BP Controlled (<130/80) BP Controlled (<130/80) [facility] Start: 05-18-2024 Covid-19 Vaccine ( season) Covid-19 Vaccine ( season) [facility] Start: 05-18-2024 Influenza vaccination Influenza Vaccine (#[facility]) [facility] Start: 03-21-2024 ANNUAL PCP TEAM CHRONIC DISEASE VISIT ANNUAL PCP TEAM CHRONIC DISEASE VISIT [facility] Start: 02-21-2024 ANNUAL PCP TEAM CHRONIC DISEASE VISIT ANNUAL PCP TEAM CHRONIC DISEASE VISIT [facility] Start: 02-21-2024 Creatinine measurement Serum Creatinine [facility] Start: 02-21-2024 SERUM CREATININE SERUM CREATININE [facility] Start: 01-19-2024 Influenza vaccination LUNG CANCER SCREENING [facility] Start: 01-19-2024 Screening for malignant neoplasm of lung Lung Cancer Screening [facility] Start: 01-08-2024 End: 04-08-2024 25-hydroxyvitamin D3 [Mass/volume] in Serum or Plasma VITAMIN D 25 HYDROXY Lab Routine Muscle cramps Expected: 01/08/2024, Expires: 04/08/2024 [facility] Work Phone: Comment on above: Expected: 01/08/2024, Expires: Start: 01-08-2024 End: 04-08-2024 CBC W Auto Differential panel - Blood COMPLETE BLOOD COUNT AND DIFFERENTIAL Lab Routine Muscle cramps Expected: 01/08/2024, Expires: 04/08/2024 [facility] Comment on above: Expected: 01/08/2024, Expires: Start: 01-08-2024 End: 04-08-2024 Comprehensive metabolic 2000 panel - Serum or Plasma COMPREHENSIVE METABOLIC PANEL Lab Routine Essential hypertension Hyperlipidemia, unspecified hyperlipidemia type Expected: 01/08/2024, Expires: 04/08/2024 [facility] Comment on above: Expected: 01/08/2024, Expires: Start: 01-08-2024 End: 04-08-2024 Thyrotropin [Units/volume] in Serum or Plasma THYROID STIMULATING HORMONE Lab Routine Muscle cramps Expected: 01/08/2024, Expires: 04/08/2024 [facility] Comment on above: Expected: 01/08/2024, Expires: Start: 09-19-2023 ANNUAL PCP TEAM CHRONIC DISEASE VISIT ANNUAL PCP TEAM CHRONIC DISEASE VISIT [facility] Start: 09-19-2023 BP CONTROLLED (<130/80) BP CONTROLLED (<130/80) [facility] Start: 09-17-2023 Advance Directive Discussion Advance Directive Discussion [facility] Start: 08-22-2023 ANNUAL PCP TEAM CHRONIC DISEASE VISIT ANNUAL PCP TEAM CHRONIC DISEASE VISIT [facility] Start: 08-22-2023 End: 10-22-2023 Comprehensive metabolic 2000 panel - Serum or Plasma COMP METABOLIC PANEL Lab Routine Essential hypertension Expected: 08/22/2023, Expires: 10/22/2023 [facility] Work Phone: Comment on above: Expected: 08/22/2023, Expires: 4 Start: 08-22-2023 End: 10-22-2023 Hemoglobin A1c in Blood HGB A1C Lab Routine Prediabetes Expected: 08/22/2023, Expires: 10/22/2023 [facility] Work Phone: Comment on above: Expected: 08/22/2023, Expires: 4 Start: 08-22-2023 SERUM CREATININE SERUM CREATININE [facility] Start: 07-24-2023 BP CONTROLLED (<130/80) BP CONTROLLED (<130/80) [facility] Start: 05-18-2023 Covid-19 Vaccine () Covid-19 Vaccine () [facility] Start: 05-18-2023 Influenza vaccination INFLUENZA (#1) [facility] Start: 03-28-2023 Colonoscopy COLONOSCOPY [facility] Start: 03-28-2023 COLORECTAL CANCER SCREENING COLORECTAL CANCER SCREENING [facility] Start: 03-28-2023 Screening for malignant neoplasm of colon [facility] Start: 03-23-2023 ANNUAL PCP TEAM CHRONIC DISEASE VISIT ANNUAL PCP TEAM CHRONIC DISEASE VISIT [facility] Start: 02-20-2023 End: 04-22-2023 Comprehensive metabolic 2000 panel - Serum or Plasma [facility] Work Phone: Comment on above: Expected: 02/20/2023, Expires: 3 Start: 02-20-2023 End: 04-22-2023 Hemoglobin A1c in Blood [facility] Work Phone: Comment on above: Expected: 02/20/2023, Expires: 3 Start: 02-20-2023 End: 04-22-2023 Lipid 1996 panel - Serum or Plasma [facility] Work Phone: Comment on above: Expected: 02/20/2023, Expires: 3 Start: 02-20-2023 End: 04-22-2023 Magnesium [Mass/volume] in Serum or Plasma [facility] Work Phone: Comment on above: Expected: 02/20/2023, Expires: 3 Start: 02-20-2023 End: 04-22-2023 Thyrotropin [Units/volume] in Serum or Plasma [facility] Work Phone: Comment on above: Expected: 02/20/2023, Expires: 3 Start: 01-18-2023 Influenza vaccination LUNG CANCER SCREENING [facility] Start: 11-25-2022 ANNUAL PCP TEAM CHRONIC DISEASE VISIT ANNUAL PCP TEAM CHRONIC DISEASE VISIT [facility] Start: 11-25-2022 BP CONTROLLED (<130/80) BP CONTROLLED (<130/80) [facility] Start: 09-17-2022 ADVANCE DIRECTIVE DISCUSSION ADVANCE DIRECTIVE DISCUSSION [facility] Start: 09-13-2022 [facility] Work Phone: Start: 08-22-2022 End: 10-22-2022 Comprehensive metabolic 2000 panel - Serum or Plasma [facility] Work Phone: Comment on above: Expected: 08/22/2022, Expires: 3 Start: 08-22-2022 End: 10-22-2022 Hemoglobin A1c in Blood [facility] Work Phone: Comment on above: Expected: 08/22/2022, Expires: 3 Start: 08-22-2022 End: 10-22-2022 Lipid 1996 panel - Serum or Plasma [facility] Work Phone: Comment on above: Expected: 08/22/2022, Expires: 3 Start: 08-22-2022 End: 10-22-2022 Thyrotropin [Units/volume] in Serum or Plasma [facility] Work Phone: Comment on above: Expected: 08/22/2022, Expires: 3 Start: 07-24-2022 End: 09-23-2022 BACTERIAL VAGINOSIS AMPLIFICATION BACTERIAL VAGINOSIS AMPLIFICATION Lab Routine Acute vaginitis Expected: 07/24/2022, Expires: 09/23/2022 [facility] Work Phone: Comment on above: Expected: 07/24/2022, Expires: 3 Start: 05-18-2022 Influenza vaccination [facility] Start: 11-17-2021 BP CONTROLLED (<130/80) BP CONTROLLED (<130/80) [facility] Start: 09-17-2021 ADVANCE DIRECTIVE DISCUSSION ADVANCE DIRECTIVE DISCUSSION [facility] Start: 04-26-2021 COVID-19 VACCINE (3 - Booster for Moderna series) COVID-19 VACCINE (3 - Booster for Moderna series) [facility] Start: 04-09-2021 PNEUMOCOCCAL: 65+ (2 - PCV) PNEUMOCOCCAL: 65+ (2 - PCV) [facility] Start: 01-19-2021 COVID-19 VACCINE (3 - Booster for Moderna series) COVID-19 VACCINE (3 - Booster for Moderna series) [facility] Start: 01-19-2021 COVID-19 VACCINE (3 - Moderna series) COVID-19 VACCINE (3 - Moderna series) [facility] Start: 07-16-2020 Mammography [facility] Start: 07-16-2020 Screening for malignant neoplasm of breast Mammogram Screening [facility] Start: 2019 BONE DENSITY BONE DENSITY [facility] Start: 07-03-2018 Urine microalbumin profile DTAP,TDAP,TD (1 - Tdap) [facility] Start: 2014 RSV Vaccine (1 - 1-dose 60+ series) RSV Vaccine (1 - 1-dose 60+ series) [facility] Start: 2004 Influenza vaccination LUNG CANCER SCREENING [facility] Start: 2004 SHINGRIX VACCINE (1 of 2) SHINGRIX VACCINE (1 of 2) [facility] Start: 1999 COLOGUARD (FIT-DNA) COLOGUARD (FIT-DNA) [facility] Start: [address] COLONOGRAPHY [facility] Start: 1999 FECAL OCCULT BLOOD FECAL OCCULT BLOOD [facility] Start: 1999 Screening for malignant neoplasm of colon [facility] Start: 1999 SIGMOIDOSCOPY SIGMOIDOSCOPY [facility] Alanine aminotransfe rase [Enzymatic activity/volume] in Serum or Plasma [facility] Albumin [Mass/volume ] in Serum or Plasma [facility] Alkaline phosphatase [Enzymatic activity/volume] in Serum or Plasma [facility] Anion gap in Serum o r Plasma [facility] Bacteria identified in Urine by Culture URINE CULTURE Microbiology Routine Gross hematuria Ordered: 07/24/2022 [facility] Work Phone: Comment on above: Ordered: 07/24/2022 Bilirubin, total measurement [facility] BUN/Creatinine ratio [facility] Calcium [Mass/volume ] in Serum or Plasma [facility] SUNI / TRICHOMONA S AMPLIFICATION SUNI / TRICHOMONAS AMPLIFICATION Microbiology Routine Acute vaginitis Ordered: 07/24/2022 [facility] Work Phone: Comment on above: Ordered: 07/24/2022 Carbon dioxide, tota l [Moles/volume] in Central venous blood [facility] CBC W Auto Different ial panel - Blood [facility] Comprehensive metabo lic 2000 panel - Serum or Plasma [facility] COVID & INFLUENZA A/ B & RSV PCR, ROUTINE COVID & INFLUENZA A/B & RSV PCR, ROUTINE Microbiology Routine Viral URI with cough 01/26/2025 1:45 PM EDT [facility] Work Phone: Creatinine [Mass/vol ume] in Serum or Plasma [facility] CT Chest and Abdomen W contrast IV [facility] CT Chest and Abdomen W contrast IV [facility] End: 11-16-2025 CT Chest W contrast IV CT CHEST W IVCON Radiology STAT Liver masses 1 Occurrences starting 10/17/2024 until 11/16/2025 [facility] Work Phone: Comment on above: 1 Occurrences starting 10/17/2024 until 11/16/2025 End: 07-25-2025 DBT Breast - bilateral screening LYN SCREENING W ANT Radiology Routine Encounter for screening mammogram for breast cancer 1 Occurrences starting 06/25/2024 until 07/25/2025 [facility] Work Phone: Comment on above: 1 Occurrences starting 06/25/2024 until 07/25/2025 End: 09-21-2023 DXA-AXIAL SKELETON DXA-AXIAL SKELETON Radiology Routine Screening for osteoporosis 1 Occurrences starting 08/22/2022 until 09/21/2023 [facility] Work Phone: Comment on above: 1 Occurrences starting 08/22/2022 until 09/21/2023 End: 02-21-2024 ECG COMPLETE ECG COMPLETE ECG Routine Bradycardia 1 Occurrences starting 02/20/2023 until 02/21/2024 [facility] Work Phone: Comment on above: 1 Occurrences starting 02/20/2023 until 02/21/2024 ECG COMPLETE ECG COMPLETE ECG 02/20/2023 9:30 AM EDT [facility] Erythrocyte mean corpuscular volume determination [facility] End: 02-21-2024 EXERCISE STRESS ECG (WITHOUT IMAGING) EXERCISE STRESS ECG (WITHOUT IMAGING) Cardiology Routine Bradycardia First degree AV block 1 Occurrences starting 02/20/2023 until 02/21/2024 [facility] Work Phone: Comment on above: 1 Occurrences starting 02/20/2023 until 02/21/2024 Ferritin [Mass/volum e] in Serum or Plasma [facility] Glucose [Mass/volume ] in Serum or Plasma [facility] Hematocrit [Volume Fraction] of Blood [facility] Hemoglobin [Mass/vol ume] in Blood [facility] Interventional radio logy Consult note IR INTERVENTIONAL RADIOLOGY CONSULT Radiology Routine Abnormal MRI, liver Ordered: 10/16/2024 [facility] Work Phone: Comment on above: Ordered: 10/16/2024 Iron and Iron bindin g capacity panel - Serum or Plasma [facility] Lactate dehydrogenas e measurement [facility] Leukocytes [#/volume ] in Blood [facility] Magnesium measurement [facility] Magnesium measurement [facility] End: 09-16-2023 [facility] SCREENING LYN SCREENING Radiology Routine Encounter for screening mammogram for breast cancer 1 Occurrences starting 08/17/2022 until 09/16/2023 [facility] Work Phone: Comment on above: 1 Occurrences starting 08/17/2022 until 09/16/2023 End: 08-23-2024 LYN SCREENING LYN SCREENING Radiology Routine Encounter for screening mammogram for breast cancer 1 Occurrences starting 07/25/2023 until 08/23/2024 [facility] Work Phone: Comment on above: 1 Occurrences starting 07/25/2023 until 08/23/2024 Mean corpuscular hemoglobin concentration determination [facility] [facility] Mean corpuscular hemoglobin determination [facility] Measurement of renal function [facility] MR Lumbar spine WO a nd W contrast IV [facility] Neutrophil count [facility] Neutrophil percent differential count [facility] Patient Education [facility] Work Phone: Patient referral [facility] Work Phone: Platelets [#/volume] in Blood [facility] Positron emission tomography with computed tomography [facility] Potassium measurement [facility] Red blood cell count [facility] Red cell distributio n width determination [facility] Removal skn tags stoper fibrq tags any area upw/15 REMOVAL OF SKIN TAGS 1-15 Procedures Routine Skin tag S/P cryotherapy of skin lesion Ordered: 09/19/2022 [facility] Work Phone: Comment on above: Ordered: 09/19/2022 Reticulocyte count [facility] Serum chloride measurement [facility] Serum inorganic phosphate measurement [facility] Sodium measurement [facility] Thyroid stimulating hormone measurement [facility] Total protein measurement [facility] Urea nitrogen [Mass/volume] in Serum or Plasma [facility] Immunizations Immunization Date Immunization Notes Care Provider Chirag mishra 07-15-2024 influenza, high dose seasonal, preservative-free Jeanette Podlogar POSITION CLASSIFICATION SPECIALIST.PRIMING POWDER PREMIX BLENDER Work Phone: [facility] 07-15-2024 influenza virus vaccine, unspecified formulation Girish Lemos MD Work Phone: [facility] 06-22-2023 influenza (HD-IIV4) vaccine, age 65+ yr, high dose, quadrivalent, PF (FLUZONE HIGH-DOSE) Jeanette Podlogar POSITION CLASSIFICATION SPECIALIST.PRIMING POWDER PREMIX BLENDER Work Phone: [facility] 06-22-2023 influenza virus vaccine, unspecified formulation Girish Lemos MD Work Phone: [facility] 08-22-2022 influenza, high-dose , quadrivalent vaccine (FLUZONE HIGH DOSE QUADRIVALENT) Jeanette Podlogar POSITION CLASSIFICATION SPECIALIST.PRIMING POWDER PREMIX BLENDER Work Phone: [facility] 08-22-2022 pneumococcal (PCV20) vaccine, 20 valent (PREVNAR 20) Jeanette Podlogar POSITION CLASSIFICATION SPECIALIST.PRIMING POWDER PREMIX BLENDER Work Phone: [facility] 08-22-2022 pneumococcal Conjuga te, unspecified formulation Jeanette Podlogar POSITION CLASSIFICATION SPECIALIST.PRIMING POWDER PREMIX BLENDER Work Phone: [facility] Work Phone: 11-24-2020 COVID-19 vaccine, fu ll dose (MODERNA) Girish Lemos MD Work Phone: [facility] 10-27-2020 COVID-19 vaccine, fu ll dose (MODERNA) Girish Lemos MD Work Phone: [facility] 07-17-2020 influenza, injectabl e, quadrivalent, preservative free [facility] 07-17-2020 influenza, seasonal, injectable Dr. Fabricio Lemos Work Phone: [facility] 07-17-2020 influenza, seasonal, injectable, preservative free Girish Lemos MD Work Phone: [facility] Work Phone: 04-09-2020 pneumococcal polysaccharide vaccine, 23 valent Girish Lemos MD Work Phone: [facility] 07-02-2019 influenza, injectabl e, quadrivalent, contains preservative Girish Lemos MD Work Phone: [facility] 07-02-2018 influenza, injectabl e, quadrivalent, contains preservative Girish Lemos MD Work Phone: [facility] 07-02-2018 tetanus and diphther ia toxoids, adsorbed, preservative free, for adult use (5 Lf of tetanus toxoid and 2 Lf of diphtheria toxoid) Girish eLmos MD Work Phone: [facility] 06-15-2017 influenza, injectabl e, quadrivalent, contains preservative Girish Lemos MD Work Phone: [facility] Work Phone: 07-24-2016 influenza, injectabl e, quadrivalent, contains preservative Girish Lemos MD Work Phone: [facility] Work Phone: 08-16-2015 influenza, seasonal, injectable Girish Lemos MD Work Phone: [facility] Work Phone: 06-17-2014 influenza, injectabl e, quadrivalent, preservative free Girish Lemos MD Work Phone: [facility] Work Phone: 05-18-2014 influenza, seasonal, injectable Girish Lemos MD Work Phone: [facility] Work Phone: 09-17-2012 influenza, seasonal, injectable Girish Lemos MD Work Phone: [facility] Work Phone: 09-17-2010 pneumococcal polysaccharide vaccine, 23 valent Girish Lemos MD Work Phone: [facility] Work Phone: 09-17-1992 tetanus and diphther ia toxoids, adsorbed, preservative free, for adult use (5 Lf of tetanus toxoid and 2 Lf of diphtheria toxoid) Girish Lemos MD Work Phone: [facility] Work Phone: Payers Date Payer Category Payer Unknown [id number] 2024 Self-pay [id number] 2022 Medicare (Managed Care) O MEDADVANTAGE O [id number] 2020 Medicare [id number] 2018 Medicare MMO MEDICARE MMO MEDADVANTAGE PPO [id number] 2018-Present [phone] [address] [place] [address] [facility] [id number]. [id number] 2018 Medicare [id number] [id number]. [id number] 2013 Unknown [id number] 1955 Unknown [id number] 2.16.840.1.581688.3.579.2. 903 1954 Unknown [id number] 2.16840.1.966243.3.579.2. 903 1954 Unknown [id number] 2.16.840.1.924975.3.579.2. 903 1954 Unknown [id number] 2.16.840.1.228723.3.579.2. 651 1954 Unknown [id number] 2.16.840.1.385192.3.579.2. 651 1954 Unknown [id number] 2.16.840.1.829978.3.579.2. 651 Medicare [id number] Unknown [id number] 2.16.840.1.367527.3.579.2. 462 Unknown [id number] 2.16.840.1.942425.3.579.2. 462 Unknown [id number] 2.16.840.1.779786.3.579.2. 462 Unknown [id number] 2.16.840.1.533762.3.579.2. 462 Unknown [id number] 2.16.840.1.076960.3.579.2. 462 Unknown [id number] 2.16.840.1.235806.3.579.2. 462 Unknown [id number] 2.840.1.451533.3.579.2. 462 Unknown [id number] 2.840.1.815591.3.579.2. 462 Unknown [id number] 2.840.1.594042.3.579.2. 462 Unknown [id number] 2.840.1.099986.3.579.2. 462 Unknown [id number] 2.840.1.718273.3.579.2. 462 Unknown [id number] 2.840.1.975154.3.579.2. 462 Unknown [id number] 2.840.1.742643.3.579.2. 462 Unknown [id number] 2.840.1.584567.3.579.2. 462 Unknown [id number] 2..840.1.240813.3.579.2. 462 Unknown [id number] 2.840.1.927871.3.579.2. 462 Unknown [id number] 2.840.1.707129.3.579.2. 462 Unknown [id number] 2.840.1.016862.3.579.2. 462 Unknown [id number] 2.16.840.1.558559.3.579.2. 462 Unknown [id number] 2.16.840.1.663614.3.579.2. 462 Unknown [id number] 2.16.840.1.176679.3.579.2. 462 Unknown [id number] 2.16.840.1.193870.3.579.2. 462 Unknown [id number] 2.16.840.1.065171.3.579.2. 462 Unknown [id number] 2.16.840.1.719956.3.579.2. 462 Unknown [id number] 2.16.840.1.051902.3.579.2. 462 Unknown [id number] 2.16.840.1.005104.3.579.2. 462 Unknown [id number] 2.16.840.1.194903.3.579.2. 462 Unknown [id number] 2.16.840.1.872534.3.579.2. 462 Unknown [id number] 2.16.840.1.319489.3.579.2. 462 Unknown [id number] 2.16.840.1.880982.3.579.2. 462 Unknown [id number] 2.16.840.1.991164.3.579.2. 462 Unknown [id number] 2.16.840.1.180240.3.579.2. 462 Unknown [id number] 2.16.840.1.752028.3.579.2. 462 Unknown [id number] 2.16.840.1.507512.3.579.2. 462 Unknown [id number] 2.16.840.1.825810.3.579.2. 462 Unknown [id number] 2.16.840.1.565199.3.579.2. 462 Social History Date Type Detail Facility Start: 01-05-2022 End: 06-13-2023 Tobacco smoking status NHIS Unknown if ever smoked [facility] Start: 07-22-2020 None [facility] Start: 07-16-2020 Cigarettes [facility] Start: 1955 Sex Assigned At Female W [facility] Start: 11-14-2017 End: 04-05-2025 Tobacco smoking status NHIS Ex-smoker [facility] Start: 08-14-1967 End: 08-14-2016 History of tobacco use Current smoker [facility] Start: 08-14-1967 End: 08-14-2016 History of tobacco use Cigarette Smoker [facility] Start: 11-14-2017 End: 01-24-2023 Cigarettes smoked current (pack per day) - Reported 1 [facility] Work Phone: Start: 11-14-2017 End: 07-15-2024 Tobacco use and exposure Smokeless tobacco non-user [facility] Start: 11-25-2021 End: 01-13-2025 Alcohol intake Current non-drinker of alcohol (finding) [facility] Start: 1955 Sex Assigned At Not on file [facility] Start: 10-16-2021 End: 03-23-2022 Exposure to SARS-CoV-2 (event) Not sure [facility] Start: 01-24-2023 End: 03-21-2023 Tobacco use panel [facility] Work Phone: National Score (1-100), lower number is lower risk 72 [facility] Work Phone: Start: 11-23-2024 End: 01-10-2025 Sex Female (finding) [facility] NEGATED: Highlighted row Not [facility] Medical Equipment Procedure Code Equipment Code Equipment Origin al Text Equipment Identifier Dates Insertion, vascular access port ([id number]) [id number] FDA Start: 12-12-2024 Goals Date Patient Goal Desired Activity /State Functional Status Date Assessment Result Facility 01-10-2025 Functional status Ambulates [facility] Work Phone: 11-15-2024 Functional status Ambulates;Up ad joselito [facility] Work Phone: Mental Status Date Assessment Result Facility 02-16-2025 Cognitive function Voice/Name [facility] Work Phone: 01-10-2025 Cognitive function Voice/Name [facility] Work Phone: 12-12-2024 Cognitive function Awake;Alert [facility] Work Phone: 12-12-2024 Cognitive function Voice/Name [facility] Work Phone: 11-24-2024 Cognitive function Voice/Name [facility] Work Phone: 11-23-2024 Cognitive function Awake;Alert;A ppropriate;Follow s Commands [facility] Work Phone: 11-15-2024 Cognitive function Voice/Name [facility] Work Phone: 09-13-2022 Cognitive function Level Of Cons ciousness Awake;Alert;Appropriate;Follow s Commands [facility] Work Phone: Clinical Notes 11-25-2021 to 04-05-2025 Telephone Encounter - Ney Mitchell LPN - 03/31/2025 1:48 PM EDTTelephone Encounter - Ney Mitchell LPN - 03/31/2025 1:48 PM EDTTelephone Encounter - Lindsey Up - 03/31/2025 11:08 AM EDT Note Date & Type Note Facility 04-05-2025 Radiology Diagnostic study note [facility] Imaging Services [address] [place] [address] [id number] Spine Lumbar WITH Contrast MR#: [id number] Acct: [id number] Name: BUSHRA RODRIGEZ Rep #: [id number] : 1955 F 69 From: Catherine Castaneda MD PCP: Dr. Fabricio Lemos MD Status: REG ER Study:Spine Lumbar WITH Contrast Date of Exam : 04/05/25 Exam# [id number] Ordering Dr: Kimberly Lynch DO PROCEDURE: SPINE LUMBAR WITH CONTRAST 04/05/2025 REASON FOR EXAM: BACK PAIN WITH LEFT RADICULOPATHY, HX OF BONE METS TECHNIQUE: SPINE LUMBAR WITH CONTRAST One or more dose reduction techniques were used (e.g., Automated exposure control, adjustment of the mA and/or kV according to patient size, use of iterative reconstruction technique). RADIATION DOSE SUMMARY: CTDlvol: 14.5 mGy DLP: 540 mGycm COMPARISON: CT abdomen and pelvis 02/17/2025 FINDINGS: There are 5 vgz-ign-agpgfss lumbar-type vertebral bodies. Lumbar vertebral bodyheights and alignment are maintained. Heterogeneous sclerotic marrow throughout, most pronounced at L2, similar to CT on 02/17/2025. The L4 spinous process is slightly indistinct. Mild multilevel disc height loss, endplate osteophyte formation, and facet arthrosis. There is mild osseous neural foraminal narrowing bilaterally at L4-5 and L5-S1. No significant osseous spinal canal narrowing at any level. Numerous hypodensities throughout the liver, similar to prior. Aortic atherosclerosis with fusiform ectasia measuring up to 2.3 cm, also unchanged. CT/Spine Lumbar WITH Contrast IMPRESSION: 1. Heterogeneous and sclerotic appearance of the lumbar spine bone marrow, similar to prior and in keeping with known osseous metastatic disease. 2. Indistinct appearance of the L4 spinous process may represent early destructive changes, likely also related to osseous metastatic disease. 3. Mild multilevel degenerative changes of the lumbar spine at worst at L4-5 and L5-S1 where there is mild osseous neural foraminal narrowing bilaterally. No significant osseous spinal canal narrowing at any level. Reading Location: [id number] CC: Dr. Fabricio Lemos MD; Dr. Juan Lynch, DO ~ [place]: Signed [facility] 03-31-2025 Telephone encounter Note Rx on 01/13/25 was a med update. Rx pending. Please review and file. Ney Mitchell LPN [facility] 03-31-2025 Miscellaneous Notes Rx on 01/13/25 was a med update. [...] 2025 11:08 AM documented in this encounter [facility] 03-31-2025 Telephone encounter Note Prescription is listed as being sent on 01-13-25, but there is no acknowledgement. [facility] 03-31-2025 Telephone encounter Note Prescription Refill Information The patient has [...] Lindsey Royal March 31, 2025 11:08 AM [facility] 02-24-2025 Progress note Note Date/Time February 24, 2025 9:40am [facility] [place] [address] OFFICE VISIT Date of Service: 02/24/25 09 MR#: [id number] Acct: [id number] Name: BUSHRA RODRIGEZ Rep #: [id number] : 1955 From: Sherice ramirez MD Age/Sex: 69/F Location: [facility] Status: Signed HPI Subjective Date of Service 02/24/25 Chief Complaint Metastatic lung cancer History of Present Illness 69-year-old female ex-smoker who presented with rapid progression of right upperquadrant pain, anorexia, and weight loss. October 31, 2024 CT scan of the chest ([facility]): Left upper lobe perihilar mass with mediastinal [...] (back ) Pain scale (1-10): 3 Allergies DAVID Inhibitors Allergy (Verified 02/24/25 09:13) Rash codeine Allergy (Verified 02/24/25 09:13) Vomiting walnut Allergy (Verified 02/24/25 09:13) Food Allergy prednisone Adverse Reaction (Verified 02/24/25 09:13) Other Ldpgabj-NEU-GoI Reductase Inhibitor (Zvurloa-Qxl-Tvd Reductase Inhibitor) Adverse Reaction (Verified 02/24/25 09:13) [...] no focal motor deficits Coordination / Balance: jahqqn-pf-zwwx test normal Speech: speech normal Gait (Neuro): [...] impression and plan discussed. Sherice Fernandez MD Laundry Machine Tender, [facility] Divisions of Medical Oncology & Hematology Department of Internal Medicine [place] [address] This note was generated using a voice [...] fallen in the past year?: Yes 02/24/25 1940 <Electronically signed by Sherice delgadillo MD> Date _ Sherice Fernandez MD Cosign Signature: Date (if applicable) CC: ~ [facility] Work Phone: 1(438) 361-935106-06-2025 Radiology Diagnostic study [facility]06-02-2025 Procedure [facility]05-28-2025 Telephone encounter Note* Telephone Encounter - Lindsey [...] Lindsey Royal February 11, 2025 8:40 AM [facility]05-28-2025 Miscellaneous Notes* Telephone Encounter - Lindsey Up [...] 11, 2025 8:40 AM [facility]2025 [facility] [address] [place] [address] OFFICE VISIT Date of Service: 02/03/25 0856 MR#: [id number] Acct: [id number] Name: BUSHRA RODRIGEZ Rep #: [id number] : 1955 From: Sherice ramirez MD Age/Sex: 69/F Location: [facility] Status: Signed HPI Subjective Date of Service 02/03/25 Chief Complaint Metastatic lung cancer History of Present Illness 69-year-old female ex-smoker who presented with rapid progression of right upperquadrant pain, anorexia, and weight loss. October 31, 2024 CT scan of the chest ([facility]): Left upper lobe perihilar mass with mediastinal [...] cardiac event was ruled out. No recurrence [facility] Medical History Hypothyroidism GERD (gastroesophageal reflux disease) [...] pain ) Pain scale (1-10): 6 Allergies DAVID Inhibitors Allergy (Verified 02/03/25 09:01) Rash codeine Allergy (Verified 02/03/25 09:01) Vomiting walnut Allergy (Verified 02/03/25 09:01) Food Allergy prednisone Adverse Reaction (Verified 02/03/25 09:01) Other Aywvfud-QJM-CxQ Reductase Inhibitor (Krsrjgf-Eew-Zfc Reductase Inhibitor) Adverse Reaction (Verified 02/03/25 09:01) [...] no focal motor deficits Coordination / Balance: gatspy-qd-iwlq test normal Speech: speech normal Gait (Neuro): [...] impression and plan discussed. Sherice Fernandez MD Laundry Machine Tender, [facility] Divisions of Medical Oncology & Hematology Department of Internal Medicine [place] [address] This note was generated using a voice [...] Cosigner Signature: Date (if applicable) CC: ~ [facility]05-20-2025 Progress note Author Sherice Fernandez [facility] Note Date/Time February 03, 2025 9:29a m [facility] [address] [place] [id number] OFFICE VISIT Date of Service: 02/03/25 0856 MR#: [id number] Acct: [id number] Name: BUSHRA RODRIGEZ Rep #: [id number] : 1955 From: Sherice ramirez MD Age/Sex: 69/F Location: [facility] Status: Signed HPI Subjective Date of Service 02/03/25 Chief Complaint Metastatic lung cancer History of Present Illness 69-year-old female ex-smoker who presented with rapid progression of right upperquadrant pain, anorexia, and weight loss. October 31, 2024 CT scan of the chest ([facility]): Left upper lobe perihilar mass with mediastinal [...] pain ) Pain scale (1-10): 6 Allergies DAVID Inhibitors Allergy (Verified 02/03/25 09:01) Rash codeine Allergy (Verified 02/03/25 09:01) Vomiting walnut Allergy (Verified 02/03/25 09:01) Food Allergy prednisone Adverse Reaction (Verified 02/03/25 09:01) Other Gohwmts-ZYO-WsF Reductase Inhibitor (Phxdydn-Psp-Fos Reductase Inhibitor) Adverse Reaction (Verified 02/03/25 09:01) [...] no focal motor deficits Coordination / Balance: szfvfy-bt-nqrz test normal Speech: speech normal Gait (Neuro): [...] impression and plan discussed. Sherice Fernandez MD Laundry Machine Tender, [facility] Divisions of Medical Oncology & Hematology Department of Internal Medicine [place] [address] This note was generated using a voice [...] Cosigner Signature: Date (if applicable) CC: ~ [employer] Work Phone: 1(533) 894-271105-13-2025 Telephone encounter Note* Telephone Encounter - Rosario Haddad LPN - 01/27/2025 12:28 PM EDT Phoned patient and reviewed results with her. She voiced understanding. Rosario Haddad LPN [facility]05-13-2025 Miscellaneous Notes* Telephone Encounter - Rosario Haddad [...] and call with worseningsymptoms. [facility] Telephone encounter Note * Telephone Encounter - Rosario Haddad LPN - 01/27/2025 12:27 PM EDT ----- Message from Girish Lemos MD sent at 01/27/2025 7:13 AM EDT ----- Negative for COVID/flu/RSV. Continue supportive care as discussed in office and call with worseningsymptoms. [facility]05-12-2025 Telephone encounter Note* Telephone Encounter - Rosario Haddad LPN - 01/26/2025 3:06 PM EDT Phoned patient and updated her with results. Patient voiced understanding. Rosario Haddad LPN [facility]05-12-2025 Miscellaneous Notes* Telephone Encounter - Rosario Haddad [...] Continue treatment as discussed. [facility] Telephone encounter Note * Telephone Encounter - Rosario Haddad LPN - 01/26/2025 3:05 PM EDT ----- Message from Girish Lemos MD sent at 01/26/2025 2:40 PM EDT ----- Patient's CXR is negative for pneumonia. Otherwise, stable xray. Continue treatment as discussed. [facility]05-12-2025 History of Present illness Narrative* Antonia Simms RT(R) - 01/26/2025 1:50 PM EDT Radiology Service Progress Note PATIENT NAME: Bushra Rodrigez DATE OF SERVICE: January 26, 2025 [...] PATIENT PRESENTS WITH AN IMPLANTABLE OR ATTACHED SPEECH LANGUAGE PATHOLOGY ASSISTANT: No RADIOLOGY DEPARTMENT: General X-ray: Exam(s) Completed: Chest X-Ray PERIPHERAL IV DATA: Not applicable SIGNED BY: RT Dameon(R) January 26, 2025 1:47 PM documented in [facility]-2025 NoteHNO ID: [id number] Author: ANTONIA SIMMS RT(R) Service: Radiology Author Type: Technologist Type: Progress Notes Filed: 01/26/2025 13:53 Note Text: Radiology Service Progress Note PATIENT NAME: Bushra Rodrigez DATE OF SERVICE: January 26, 2025 [...] PATIENT PRESENTS WITH AN IMPLANTABLE OR ATTACHED SPEECH LANGUAGE PATHOLOGY ASSISTANT: No RADIOLOGY DEPARTMENT: General X-ray: Exam(s) Completed: Chest X-Ray PERIPHERAL IV DATA: Not applicable SIGNED BY: RT Dameon(Coy) January 26, 2025 1:47 [facility] WnhjRKJI-WFA-9 (AGENT OF COVID-19) RNA: Not detected INFLUENZA A RNA: Not detected INFLUENZA B RNA: Not detected RESPIRATORY SYNCYTIAL VIRUS (RSV) RNA: Not detectedMercy Health Fairfield HospitalComment on above:Performed By: #### [id number] ####[facility] LABJUSTIN [id number] [address]05-12-2025 Instructions* Patient Instructions* Girish Lemos MD - 01/26/2025 1:38 PM EDT Take the prescribed Tessalon Perles as needed for your cough (the order was sent to [facility] in [place]). For additional cough relief, you may use umqw-fwo-ybfqxmu cough drops or Delsym if desired. For your sore throat, try drinking tea with honey, gargling warm salt water, and using gxxz-yjr-iwhoozy chloraseptic sprays or lozenges. Drink plenty of [...] return for further evaluation. [facility]-2025 NoteHNO ID: [id number] Author: GIRISH LEMOS MD Service: ? Author Type: Physician Type: Progress Notes Filed: 01/26/2025 13:43 Note Text: Chief Complaint Patient presents with: Cough: Non-productive Throat Problem: Hoarse and sore sinus congestion with occasional green mucus Perspiration Recording using Fraxion software for draft documentation of the visit was discussed with the patient/authorized printing supplies 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 mv,jaci,iron,mn/folic acid/chol (TELU-ZBXY-QMOTZ, PABA, ORAL) Take 1 tablet by mouth [...] day. No current facility-administe (more content not included)...[facility]05-12-2025 History of Present illness Narrative* Girish Lemos MD - 01/26/2025 1:06 PM EDT Chief Complaint Patient presents with: Cough: Non-productive Throat Problem: Hoarse and sore sinus congestion with occasional green mucus Perspiration Recording using Fraxion software for draft documentation of the visit was discussed with the patient/authorized printing supplies 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 mv,jaci,iron,mn/folic acid/chol (MQNP-EWVS-CTUUR, PABA, ORAL) Take 1 tablet by mouth [...] Perles for cough management; advised use of ojen-alm-dmjopbo cough drops or Delsym. - Recommended tea with honey, warm salt water gargles, and ledo-rbk-obnhsiy Chloraseptic sprays or lozenges for sore throat. [...] recovery from current illness. [facility] in [facility]25 NoteHNO ID: [id number] Author: GIRISH LEMOS MD Service: ? Author Type: Physician Type: Progress Notes Filed: 01/13/2025 10:35 Note Text: Chief Complaint Patient presents with: Hospital F/U [facility] Bushra Rodrigez is a 69 year old female who presents here today for Hospital discharge follow up. 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 mv,jaci,iron,mn/folic acid/chol (VCXU-FCAG-YTTWO, PABA, ORAL) Take 1 tablet by mouth once daily. (Patient not taking: Reported on 08/22/2022) Minoxidil 2 % external solution Apply 1 mL to affected area twice daily. albuterol (PROVENTIL) 2.5 (more content not included)...[facility]04-29-2025 History of Present illness Narrative* Girish Lemos MD - 01/13/2025 9:08 AM EDT Chief Complaint Patient presents with: Hospital F/U [facility] Bushra Rodrigez is a 69 year old female who presents here today for Hospital discharge follow up. 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 mv,jaci,iron,mn/folic acid/chol (GYAO-YGDX-JWDJV, PABA, ORAL) Take 1 tablet by mouth [...] which included preparing to see the patient, qbms-sz-txdw patient care, completing clinical documentation, obtaining and/or reviewing separately obtained history, performing a medically appropriate examination, counseling and educating the pat ient/family/caregiver, and ordering medications, tests, or procedures. Girish Lemos MD documented in this encounterCommunity [facility]04-26-[facility]25 Discharge summary [facility] Medical Records Department [address] [place] [address] Discharge Summary 01/10/25 1428 MR#: [id number] Acct: [id number] Name: BUSHRA RODRIEGZ Rep #:[id number] : 1955 69 From: Jassi Schneider PCP: Dr. Fabricio Lemos MD Status :ADM FARIBA Location: [place] [address] Providers Date of Admission: 01/09/25 Date of [...] 01/10/25 14:09 RMA (Rec: 01/10/25 14:09 RMA [id number]) Nutrition Malnutrition Evidence of Yes Malnutrition Exists [...] 93.2 H, Lymph % (Auto) 4.7 L, [place] % (Auto) 0.2, Eos % (Auto) 0.0, [...] Metamyelocytes % 2 H, Diff Path Review January, Platelet Estimate A, Sodium 142,Potassium 3.9, Chloride [...] relate to congestion and edema. Reading Location: [facility] Echocardiogram 01/09/25 20:22 Interpretation Summary The LV [...] Diagnoses (Choose all that apply): CHF CHF DAVID/ARB ordered at discharge?: Yes Documented LVEF (%): [...] Self Care Charges/Coding Visit Charges Inpatient E&M: 48917 Disch Hosp >30min 01/10/25 1439 Cosigner Signature (if applicable): CC: Dr. Fabricio Lemos MD; Dr. Jassi Borden MD~ Signed [facility]04-26-2025 Discharge summary [facility] Medical Records Department [address] [place] [address] Instructions for Home/Discharge Instructions 01/10/25 1425 MR#: [id number] Acct: [id number] Name: BUSHRA RODRIGEZ Rep #:[id number] : 1955 69 [...] MD; Dr. Estrella Cabezas MD ~ Signed [facility]04-26-2025 [facility] Discharge summary Author Austin Reodica [facility] Note Date/Time January 09, 2025 11: 20pm [facility] Medical Records Department [address] [place] [address] Emergency Department Summary 01/09/25 MR#: [id number] Acct: [id number] Name: BUSHRA RODRIGEZ Rep #:[id number] : 1955 69 From: Austin Mack MD PCP: Dr. Fabricio Lemos MD Status :ADM FARIBA Location: [address] History of Present Illness Chief Complaint: [...] reaction to her white blood cell booster. [facility] Medical History Hypothyroidism GERD (gastroesophageal [...] Type Severity Reaction Status Date / Time DAVID Inhibitors Allergy Rash Verified 01/09/25 15:36 codeine Allergy Vomiting Verified 01/09/25 15:36 walnut Allergy Food Verified 01/09/25 15:36 Allergy prednisone AdvReac Other Verified 01/09/25 15:36 Cudaunl-DYY-IrP Reductase AdvReac cramps Verified 01/09/25 15:36 Inhibitor (Xwgnkrh-Yrd-Mxg Reductase Inhibitor) Family History Mother Cancer Hx [...] 93.2 H Lymph % (Auto) 4.7 L [place] % (Auto) 0.2 Eos % (Auto) 0.0 [...] relate to congestion and edema. Reading Location: [facility] Discharge Plan Dx/Rx/DC Orders Clinical Impression: Chest pain, Shortness of breath, Small cell lung cancer, Elevated troponin Disposition Disposition: Acute Care Hospital [facility] Discharge Date/Time: 01/09/25 20:00 What to do if you have Problems For any increased pain, shortness of breath, bleeding, nausea or vomiting, chestpain, or any unexpected problems, contact your Primary Care Provider. Call [facility] ([phone]) or report to the closest Emergency Room. Call 911 if necessary. 01/09/252319 <Electronically signed by Austin Mack MD> Cosigner Signature (if applicable): CC: Dr. Fabricio Lemos MD ~ Signed [facility] Work Phone: 1(516) 962-365704-25-2025 Discharge summary [facility] Medical Records Department [address] [place] [address] Emergency Department Summary 01/09/25 MR#: [id number] Acct: [id number] Name: BUSHRA RODRIGEZ Rep #:[id number] : 1955 69 From: Austin Mack MD PCP: Dr. Fabricio Lemos MD Status :ADM [facility] History of Present Illness Chief Complaint: [...] reaction to her white blood cell booster. [facility] Medical History Hypothyroidism GERD (gastroesophageal [...] Type Severity Reaction Status Date / Time DAVID Inhibitors Allergy Rash Verified 01/09/25 15:36 codeine Allergy Vomiting Verified 01/09/25 15:36 walnut Allergy Food Verified 01/09/25 15:36 Allergy prednisone AdvReac Other Verified 01/09/25 15:36 Cdlnpmk-PQA-DmN Reductase AdvReac cramps Verified 01/09/25 15:36 Inhibitor (Qfvnupe-Ojo-Bjz Reductase Inhibitor) Family History Mother Cancer Hx [...] 93.2 H Lymph % (Auto) 4.7 L [place] % (Auto) 0.2 Eos % (Auto) 0.0 [...] relate to congestion and edema. Reading Location: [facility] Discharge Plan Dx/Rx/DC Orders Clinical Impression: Chest pain, Shortness of breath, Small cell lung cancer, Elevated troponin Disposition Disposition: Acute Care Hospital [facility] Discharge Date/Time: 01/09/25 20:00 What to do if you have Problems For any increased pain, shortness of breath, bleeding, nausea or vomiting, chestpain, or any unexpected problems, contact your Primary Care Provider. Call [facility] ([phone]) or report tothe closest Emergency Room. Call 911 if necessary. 01/09/252319 Cosigner Signature (if applicable): CC: Dr. Fabricio Lemos MD ~ Signed [facility]04-25-2025 Progress note Author Estrella Cabezas [facility] Note Date/Time January 09, 2025 8:1 7pm [facility] Medical Records Department [address] [place] [address] Progress Note - Hospitalist 01/09/252015 MR#: [id number] Acct: [id number] Name: BUSHRA RODRIGEZ Rep #:[id number] : 1955 69 From: Estrella Cabezas MD PCP: Dr. Fabricio Lemos MD Status :ADM FARIBA Location: [place] [address] Hospitalist Note BNP elevated, will give dose of Lasix 01/09/252016 <Electronically signed by Estrella Cabezas MD> Cosigner Signature (if applicable): CC: ~ Signed [facility] Work Phone: 1(309) 951-487404-25-2025 History and physical note Author Estrella Cabezas [facility] Note Date/Time January 09, 2025 8:0 5pm [facility] Medical Records Department [address] [place] [address] H&P Exam - Hospitalist 01/09/251930 MR#: [id number] Acct: [id number] Name: BUSHRA RODRIGEZ Rep #:[id number] : 1955 69 From: Estrella Cabezas MD PCP: Dr. 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 [facility] Medical History (Updated 01/09/25 @ 19:35 by [...] Type Severity Reaction Status Date / Time DAVID Inhibitors Allergy Rash Verified 01/09/25 15:36 codeine Allergy Vomiting Verified 01/09/25 15:36 walnut Allergy Food Verified 01/09/25 15:36 Allergy prednisone AdvReac Other Verified 01/09/25 15:36 Lhuuftz-RQG-CnS Reductase AdvReac cramps Verified 01/09/25 15:36 Inhibitor (Mzqtoyz-Sxr-Rtc Reductase Inhibitor) Family History Mother Cancer Hx [...] 93.2 H, Lymph % (Auto) 4.7 L, [place] % (Auto) 0.2, Eos % (Auto) 0.0, [...] relate to congestion and edema. Reading Location: [facility] Assessment & Plan Assessment/Plan (1) Chest pain: [...] Cabezas MD Charges/Coding Visit Charges Inpatient E&M: 00402 Init Hosp L2 01/09/252004 <Electronically signed by Estrella Cabezas MD> Cosigner Signature (if applicable): CC: Dr. Fabricio Lemos MD; Dr. Estrella Cabezas MD~ Signed [facility] Work Phone: 1(498) 652-437504-25-2025 Progress note [facility] Medical Records Department [address] [place] [address] Progress Note - Hospitalist 01/09/252015 MR#: [id number] Acct: [id number] Name: BUSHRA RODRIGEZ Rep #:[id number] : 1955 69 From: Estrella Cabezas MD PCP: Dr. Fabricio Lemos MD Status :ADM FARIBA Location: [place] [address] Hospitalist Note BNP elevated, will give dose of Lasix 01/09/252016 Cosigner Signature (if applicable): CC: ~ Signed [facility]04-25-2025 History and physical note [facility] Medical Records Department [address] [place] [address] H&P Exam - Hospitalist 01/09/251930 MR#: [id number] Acct: [id number] Name: BUSHRA RODRIGEZ Rep #:[id number] : 1955 69 From: Estrella Cabezas MD PCP: Dr. 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 [facility] Medical History (Updated 01/09/25 @ 19:35 by [...] Type Severity Reaction Status Date / Time DAVID Inhibitors Allergy Rash Verified 01/09/25 15:36 codeine Allergy Vomiting Verified 01/09/25 15:36 walnut Allergy Food Verified 01/09/25 15:36 Allergy prednisone AdvReac Other Verified 01/09/25 15:36 Bbndwds-MWY-RgB Reductase AdvReac cramps Verified 01/09/25 15:36 Inhibitor (Tklwifb-Kvl-Xmb Reductase Inhibitor) Family History Mother Cancer Hx [...] 93.2 H, Lymph % (Auto) 4.7 L, [place] % (Auto) 0.2, Eos % (Auto) 0.0, [...] relate to congestion and edema. Reading Location: [facility] Assessment & Plan Assessment/Plan (1) Chest pain: [...] -Continue Synthroid #DVT ppx: Lovenox subcu Estrella Cabeazs MD Charges/Coding Visit Charges Inpatient E&M: 35221 Init Hosp L2 01/09/252004 Cosigner Signature (if applicable): CC: Dr. Fabricio Lemos MD; Dr. Estrella Cabezas MD~ Signed [facility]04-25-2025 Radiology Diagnostic study note [facility] Imaging Services [address] [place], [place] [address] Chest 1 View (Portable) MR#: [id number] Acct: [id number] Name: BUSHRA RODRIGEZ Rep #: [id number] : 1955 F 69 From: Tasha Fajardo MD PCP: Dr. Fabricio Lemos MD Status: REG ER Study:Chest 1 View (Portable) Date of Exam: 01/09/25 Exam# [id number] Ordering Dr: Austin Mack MD EXAM: XR [...] relate to congestion and edema. Reading Location: [facility] CC: Dr. Austin Mack MD; Dr. Fabricio Lemos MD ~ Sagger Soak: Signed [facility]03-31-2025 Telephone encounter Note* Telephone Encounter - Marta [...] Meadows RN December 15, 2024 9:14 AM [facility]03[facility] Miscellaneous Notes* Telephone Encounter - Marta Meadows [...] 15, 2024 9:14 AM documented in this encounterCommunity [facility] Center03-28-2025 Consult note Author Lennox Schaefer [facility] Note Date/Time December 12, 2024 12: 33pm [facility] Medical Records Department [address] [facility] [place] [address] Anesthesia Postop Eval II 12/12/24 1233 MR#: [id number] Acct: [id number] Name: BUSHRA RODRIGEZ Rep #:[id number] : 1955 69 From: Lennox Schaefer MD PCP: Dr. Fabricio Lemos MD Status :REG SDC Y Race: C Location: [place] [address]-1 Anesthesia Postop Eval I Sum Postop Eval Completion status Anesthesia document: Postop Eval 1 completed: Yes Anesthesia Postop Eval I Summary Anesthesia Postop Eval I Summary: Anesthesia Postop Eval I: Assessment Summary Airway patent Yes 12/12/24 12:31 SCALLOP DREDGER.TMEN Spontaneous unlabored No 12/12/24 12:31 SCALLOP DREDGER.TMEN respirations Mental status nausea No 12/12/24 12:31 SCALLOP DREDGER.TMEN Vomiting No 12/12/24 12:31 SCALLOP DREDGER.TMEN Anesthesia Postop Eval I: Fluid Summary Crystalloid volume administer 500 12/12/24 12:31 SCALLOP DREDGER.TMEN (ml) Colloids volume administered ( ml) Blood Product volume administered (ml) Total IV fluid infused 500 12/12/24 12:31 SCALLOP DREDGER.TMEN Anesthesia Postop Eval I: Summary Notes Anesthesia Complication No 12/12/24 12:31 SCALLOP DREDGER.TMEN Anesthesia Complication Comment: Post-operative progress note Anesthesia: Postop Eval II Evaluation Mental status: Awake Pain Level: 0 nausea: No Vomiting: No 12/12/24 1233 <Electronically signed by Lennox Schaefer MD > Date _ Lennox Schaefer MD Cosigner Signature: Date CC: ~ Signed [facility] Work Phone: [phone]) 115-902603-28-2025 Consult note Author Nohemi Andres [facility] Note Date/Time December 12, 2024 12: 31pm [facility] Medical Records Department [address] [facility] [place] [address] Anesthesia Postop Eval I 12/12/24 1230 MR#: [id number] Acct: [id number] Name: BUSHRA RODRIGEZ Rep #:[id number] : 1955 69 From: Nohemi khan CRNA PCP: Dr. Fabricio Lemos MD Status :REG SDC Y Race: C Location: [place] [address] Anesthesia: Postop Eval I Current Vital Signs [...] 1231 <Electronically signed by Nohemi Perez ace SCALLOP DREDGER> Date _ Nohemi Andres SCALLOP DREDGER Cosigner Signature: Date CC: ~ Signed [facility] Work Phone: 1(738) 845-142103-28-2025 Discharge summary [facility] Note Date/Time December 12, 2024 12: 24pm [facility] Medical Records Department [address] [place] [address] Instructions for Home/Discharge Instructions 12/12/24 1222 MR#: [id number] Acct: [id number] Name: BUSHRA RODRIGEZ Rep #:[id number] : 1955 69 From: Yeimi Sorto MD PCP: Dr. Fabricio Lemos MD Status :REG [facility] Discharge Instructions Procedure Port-A-Cath Diet Discharge Diet: [...] Care Provider: Fabricio Lemos Instructions Print Language: Argentine Discharge Orders/Prescriptions Prescriptions: Continued (DME) Disability Placard [...] can be placed): Home, Self Care 12/12/24 5601<Electronically signed by Yeimi Sorto MD>Yeimi Sorto MD CC: Dr. Fabricio Lemos MD ~ Signed [facility] Work Phone: 1(293) 484-314103-28-2025 History and physical note Author Yeimi Sorto [facility] Note Date/Time December 12, 2024 11: 40am [facility] Medical Records Department [address] [place] [address] History & Physical Exam 12/12/24 1138 MR#: [id number] Acct: [id number] Name: BUSHRA RODRIGEZ Rep #:[id number] : 1955 69 From: Yeimi Sorto MD PCP: Dr. Fabricio Lemos MD Status :[facility] Location: [place] [address] History and Physical Date of Admission: 12/12/24 Date of Service: 12/10/24 MR#: [id number] Acct: [id number] Name: BUSHRA RODRIGEZ Rep #: [id number] : 1955 Provider: Dr. Yeimi Sorto MD Age/Sex: 69/F Location: [facility] Status: Signed Intake Vital Signs 12/09/2509:45 12/09/2510:48 [...] in back and due to cancer) Allergies DAVID Inhibitors Allergy (Verified 12/11/24 08:17) Rashcodeine Allergy (Verified 12/11/24 08:17) Vomitingwalnut Allergy (Verified 12/11/24 08:17) Food Allergyprednisone Adverse Reaction (Verified 12/11/24 08:17) YpfusDnsugtq-WTL-KoC Reductase Inhibitor (Uxaiwty-Kzf-Ijc Reductase Inhibitor) Adverse Reaction (Verified 12/11/24 08:17) [...] you fallen in the past year?: No [facility] Medical History (Updated 12/11/24 @ 09:30 by [...] no further questions. Yeimi Sorto M.D. Pager: [phone] [facility] [address] [place] [address], [address] [place] [address] Office: [phone] Coding Level of Care Code Off vis,new,level [...] MD; Dr. Yeimi Sorto MD ~* Signed [facility] Work Phone: 1(626) 393-937703-28-2025 Consult note Author Lennox Schaefer [facility] Note Date/Time December 12, 2024 11: 14am [facility] Medical Records Department [address] [place] [address] Pre-Anesthesia Evaluation 12/12/24 1113 MR#: [id number] Acct: [id number] Name: BUSHRA RODRIGEZ Rep #:[id number] : 1955 69 From: Lennox Schaefer MD PCP: Dr. Fabricio Lemos MD Status :REG [facility] Y Race: C Location: [place] [address] ASA Classification* ASA Classification ASA Classification: 3 [...] poss left Anesthesia History Anesthesia History - manager title: Anesthesia History - manager title Hx Hospitalization Yes: 3-12/11/24 08:45 Any Problems With Anesthesia No 12/11/24 [...] take am of surgery PONV PONV - manager title: PONV - manager title Female Yes 12/11/24 08:45 HX of Motion [...] 12/12/24 10:51 Respiratory Assessment Respiratory Assessment - manager title: Respiratory Tract Infection Hx - manager title Hx Respiratory Tract Infection No 12/11/24 08:45 STOP Sleep Apnea STOP Sleep Apnea - manager title: STOP Sleep Apnea - manager title Hx Hypertension Yes: MED 12/11/24 08:45 Hx [...] Tobacco Use History Tobacco Use History - manager title: Tobacco Use History - manager title Tobacco Use Smoking Status Former smoker 12/11/24 08:45 Hx Tobacco Use No 12/11/24 08:45 Years Smoking Packs Smoked per Day Smoking Cessation Date was Yes - quit smoking within 15 12/11/24 08:45 within the last 15 years years Hx Smoking Cessation Date 09/17/15 12/11/24 08:45 Hx Smoking Cessation No 12/11/24 08:45 Counseling Hematologic Medial History Hematologic Hx - manager title: Hematologic Medical Hx - psych coordinator Hx of Blood Transfusion No 12/11/24 08:45 [...] confused, unrespo /Reproduction History /Reproductive History - manager title: /Reproductive Hx- manager title Hx Now No 12/11/24 08:45 Gestational Age [...] Type Severity Reaction Status Date / Time DAVID Inhibitors Allergy Rash Verified 12/12/24 10:47 codeine Allergy Vomiting Verified 12/12/24 10:47 walnut Allergy Food Verified 12/12/24 10:47 Allergy prednisone AdvReac Other Verified 12/12/24 10:47 Wsrcitx-BFN-GgG Reductase AdvReac cramps Verified 12/12/24 10:47 Inhibitor (Kicakbq-Sfw-Slm Reductase Inhibitor) Family History Mother Cancer Hx [...] MD Cosigner Signature: Date CC: ~ Signed [facility] Work Phone: 1(213) 830-214303-28-2025 Radiology Diagnostic study note [facility] Imaging Services [address] [place] [id number] Chest 1 View (Portable) MR#: [id number] Acct: [id number] Name: BUSHRA RODRIGEZ Rep #: [id number] : 1955 F 69 From: Tasha Fajardo MD PCP: Dr. Fabricio Lemos MD Status: [facility] Study:Chest 1 View (Portable) Date of Exam: 12/12/24 Exam# [id number] Ordering Dr: Yeimi Sorto MD EXAM: XR [...] edema. Pneumonia cannot be excluded. Reading Location: [facility] CC: Dr. Fabricio Lemos MD; Dr. Yeimi Sorto MD ~ Sagger Soak: Signed [facility]03-28-2025 Procedure note [facility] Medical Records Department [address] [facility] [place] [address] Operative Report 12/12/24 1219 MR#: [id number] Acct: [id number] Name: BUSHRA RODRIGEZ Rep #:[id number] : 1955 69 From: Yeimi Sorto MD PCP: Dr. Fabricio Lemos MD Status :[facility] Location: [place] [address] Operative Report (Standard) Operative Information Date of Procedure: 12/12/24 Pre-Operative Diagnosis: z45.2, lung cancer Post-Operative Diagnosis: Same Surgery/Procedure Performed: 1. Placement of right IJ Port-A-Cath 2. Use of fluoroscopy 3. Use of ultrasound computer publisher: No Type of Anesthesia: MAC/Supplemental RN Documented [...] details: Bard PowerPort isp M.R.I. 6Fr Lot [id number] Special Medications: Ancef 2 g IV x [...] Lemos MD; Dr. Yeimi Sorto MD~ Signed [facility]03-28-2025 Consult note [facility] Medical Records Department [address] [place] [address] Anesthesia Postop Eval II 12/12/24 1233 MR#: [id number] Acct: [id number] Name: BUSHRA RODRIGEZ Rep #:[id number] : 1955 69 From: Lennox Schaefer MD PCP: Dr. Fabricio Lemos MD Status :REG SDC Y Race: C Location: [place] [address]- Anesthesia Postop Eval I Sum Postop Eval Completion status Anesthesia document: Postop Eval 1 completed: Yes Anesthesia Postop Eval I Summary Anesthesia Postop Eval I Summary: Anesthesia Postop Eval I: Assessment Summary Airway patent Yes 12/12/24 12:31 SCALLOP DREDGER.TMEN Spontaneous unlabored No 12/12/24 12:31 SCALLOP DREDGER.TMEN respirations Mental status nausea No 12/12/24 12:31 SCALLOP DREDGER.TMEN Vomiting No 12/12/24 12:31 SCALLOP DREDGER.TMEN Anesthesia Postop Eval I: Fluid Summary Crystalloid volume administer 500 12/12/24 12:31 SCALLOP DREDGER.TMEN (ml) Colloids volume administered ( ml) Blood Product volume administered (ml) Total IV fluid infused 500 12/12/24 12:31 SCALLOP DREDGER.TMEN Anesthesia Postop Eval I: Summary Notes Anesthesia Complication No 12/12/24 12:31 SCALLOP DREDGER.TMEN Anesthesia Complication Comment: Post-operative progress note Anesthesia: Postop Eval II Evaluation Mental status: Awake Pain Level: 0 nausea: No Vomiting: No 12/12/24 1233 > Date _ Lennox Schaefer MD Cosigner Signature: Date CC: ~ Signed [facility]03-28-2025 Consult note [facility] Medical Records Department [address] [facility] [place] [address] Anesthesia Postop Eval I 12/12/24 1230 MR#: [id number] Acct: [id number] Name: BUSHRA RODRIGEZ Rep #:[id number] : 1955 69 From: Nohemi khan SCALLOP DREDGER PCP: Dr. Fabricio Lemos MD Status :[facility] Y Race: C Location: [place] [address] Anesthesia: Postop Eval I Current Vital Signs Temperature: 99.0 F Pulse Rate: 82 Blood Pressure: 109/58 Respiratory Rate: 20 Pulse Ox: 91 Assessment Airway patent: Yes Spontaneous unlabored respirations: No nausea: No Vomiting: No Anesthesia Complication: No Fluid Hydration Crystalloid volume administer (ml): 500 Total IV fluid infused: 500 Progress Note Anesthesia document: Postop Eval 1 completed: Yes 12/12/24 1231 david SCALLOP DREDGER> Date _ Nohemi Andres SCALLOP DREDGER Cosigner Signature: Date CC: ~ Signed [facility]03-28-2025 Discharge summary [facility] Medical Records Department [address] [place] [address] Instructions for Home/Discharge Instructions 12/12/24 1222 MR#: [id number] Acct: [id number] Name: BUSHRA RODRIGEZ Rep #:[id number] : 1955 69 From: Yeimi Sorto MD PCP: Dr. Fabricio Lemos MD Status :[facility] Discharge Instructions Procedure Port-A-Cath Diet Discharge Diet: [...] Care Provider: Fabricio Lemos Instructions Print Language: Argentine Discharge Orders/Prescriptions Prescriptions: Continued (DME) Disability Placard [...] CC: Dr. Fabricio Lemos MD ~ Signed [facility]03-28-2025 History and physical note [facility] Medical Records Department [address] [place] [address] History & Physical Exam 12/12/24 1138 MR#: [id number] Acct: [id number] Name: BUSHRA RODRIGEZ Rep #:[id number] : 1955 69 From: Yeimi Sorto MD PCP: Dr. Fabricio Lemos MD Status :[facility] Location: [place] [address] History and Physical Date of Admission: 12/12/24 Date of Service: 12/10/24 MR#: [id number] Acct: [id number] Name: ELIABUSHRA M Rep #: [id number] : 1955 Provider: Dr. Yeimi Sorto MD Age/Sex: 69/F Location: [facility] Status: Signed Intake Vital Signs 12/09/2509:45 12/09/2510:48 [...] in back and due to cancer) Allergies DAVID Inhibitors Allergy (Verified 12/11/24 08:17) Rashcodeine Allergy (Verified 12/11/24 08:17) Vomitingwalnut Allergy (Verified 12/11/24 08:17) Food Allergyprednisone Adverse Reaction (Verified 12/11/24 08:17) CyywdYjwwfvy-VKL-McC Reductase Inhibitor (Rubvypm-Tby-Tov Reductase Inhibitor) Adverse Reaction (Verified 12/11/24 08:17) [...] comfortable and no acute distress [facility] Head: normocephalic and atraumatic Neck Neck: supple [...] no further questions. Yeimi Sorto M.D. Pager: [phone] [facility] [address] [place] [address], [address] [place] [address] Office: [phone] Coding Level of Care Code Off vis,new,level [...] MD; Dr. Yeimi Sorto MD ~* Signed [facility]03-28-2025 [facility]03-28-2025 Consult note [facility] Medical Records Department [address] [place] [address] Pre-Anesthesia Evaluation 12/12/24 1113 MR#: [id number] Acct: [id number] Name: BUSHRA RODRIGEZ Rep #:[id number] : 1955 69 From: Lennox Schaefer MD PCP: Dr. Fabricio Lemos MD Status :[facility] Y Race: C Location: [place] [address] ASA Classification* ASA Classification ASA Classification: 3 [...] poss left Anesthesia History Anesthesia History - manager title: Anesthesia History - manager title Hx Hospitalization Yes: 12-0912/11/24 08:45 Any Problems [...] take am of surgery PONV PONV - manager title: PONV - manager title Female Yes 12/11/24 08:45 HX of Motion [...] 12/12/24 10:51 Respiratory Assessment Respiratory Assessment - manager title: Respiratory Tract Infection Hx - manager title Hx Respiratory Tract Infection No 12/11/24 08:45 STOP Sleep Apnea STOP Sleep Apnea - manager title: STOP Sleep Apnea - manager title Hx Hypertension Yes: MED 12/11/24 08:45 Hx [...] Tobacco Use History Tobacco Use History - manager title: Tobacco Use History - manager title Tobacco Use Smoking Status Former smoker 12/11/24 08:45 Hx Tobacco Use No 12/11/24 08:45 Years Smoking Packs Smoked per Day Smoking Cessation Date was Yes - quit smoking within 15 12/11/24 08:45 within the last 15 years years Hx Smoking Cessation Date 09/17/15 12/11/24 08:45 Hx Smoking Cessation No 12/11/24 08:45 Counseling Hematologic Medial History Hematologic Hx - manager title: Hematologic Medical Hx - psych coordinator Hx of Blood Transfusion No 12/11/24 08:45 [...] confused, unrespo /Reproduction History /Reproductive History - manager title: /Reproductive Hx- manager title Hx Now No 12/11/24 08:45 Gestational Age [...] Type Severity Reaction Status Date / Time DAVID Inhibitors Allergy Rash Verified 12/12/24 10:47 codeine Allergy Vomiting Verified 12/12/24 10:47 walnut Allergy Food Verified 12/12/24 10:47 Allergy prednisone AdvReac Other Verified 12/12/24 10:47 Whahldn-QNY-ViD Reductase AdvReac cramps Verified 12/12/24 10:47 Inhibitor (Yjlnaqv-Lkx-Qqy Reductase Inhibitor) Family History Mother Cancer Hx [...] MD Cosigner Signature: Date CC: ~ Signed [facility]03-25-2025 Evaluation note* Diagnosis Onset Date Resolution Status Admit Date Bilateral lower extremity edema acut e December 09, 2024 9:51am Small cell lung cancer acute [facility] 2024 9:51am 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 December 09, 2024 9:51am 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 December 09, 2024 9:51am 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 December 09, 2024 9:51am Encounter for insertion of venous access port acute December 10, 12:33pm High grade neuroendocrine carcinoma of lung [...] is present chronic March 16, 2025 7:48am [facility] Work Phone: 1(922) 818-767003-25-2025 Evaluation note* Diagnosis Onset Date Resolution Status Admit Date Bilateral lower extremity edema acut e December 09, 2024 9:51am Small cell lung cancer acute [facility] 2024 9:51am 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 December [...] is present chronic March 16, 2025 7:48am Anemia acute April 06 9:34am 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 April 06 9:34am Left leg weakness acute April 062024 9:34am 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 March 182024 9:34am 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 April 06, 2025 9:34am 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 April 06, 2025 9:34am [facility] [employer] Work Phone: 1(107) 412-346703-10-2025 Evaluation note* Diagnosis Onset Date Resolution Status Admit Date 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 November 24 2:38pm Small cell lung cancer acute [facility] 2024 2:38pm 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 November 24, 2024 2:38pm 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 November 24, 2024 2:38pm 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 November 24, 2024 2:38pm Jaundice resolved November 24 2:38pm Bilateral lower extremity edema acut e December 02, 2024 12:19pm Small cell lung cancer acute [facility] 2024 12:19pm 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 December 02, 2024 12:19pm 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 Author Type: Physician Type: Progress Notes Filed: 11/12/2024 09:17 Note Text: Chief Complaint Patient presents with: Follow Up: 4 week follow up Diarrhea Weight Problem: Weight loss down approx 7 lbs in 1 week Fatigue: weakness Sleep Problem Abdominal Pain: Continues- PET scan completed yesterday HPI Bushra Rodrigez is a 69 year old female [...] for diarrhea which is not helping. Has Hudson for her back which she has been taking for her abdominal pain without much improvement. Needing to take Hudson more than prescribed. Past medical history, appointments, medications, allergies reviewed. Previous Medical History PAST MEDICAL HISTORY Diagnosis Date Anxiety with depression Chronic back pain Chronic kidney disease (CKD), stage III (moderate) (HCC) Colon polyp tubular adenoma [address] 07/16 to 08/17 DDD (degenerative disc [...] Known Problems Brother Stroke Maternal Grandmother or ID, patient unsure Coronary Artery Disease Maternal Grandfather Alcohol abuse Paternal Grandfather Patient Allergies ALLERGIES Allergen Reactions David Inhibitors Rash Codeine Vomiting, Other: See Comments Headache Remeron [Mirtazapin* Other: See Comments Fatigue Ztfawzu-Gox-Kmb Red* Myalgia Merlin Unknown Zetia [Ezetimibe] Myalgia Current Medications Current [...] not taking: Reported on 11/05/2024) mv,jaci,iron,mn/folic acid/chol (YAOO-EPWL-OMVHO, PABA, ORAL) Take 1 tablet by mouth once daily. (Patient not taking: Reported on 08/22/2022) Minoxidil 2 % external solution Apply 1 mL to affected area twice daily. No current facility-administered medications on file prior to visit. Social History Social History Tobacco Use Smoking status: Former Current packs/day: 0.00 Average packs/day: 1 pack/d (more content not included)...[facility]02-26-2025 History of Present illness Narrative* Girish Lemos MD - 11/12/2024 8:31 AM EST Chief Complaint Patient presents with: Follow Up: 4 week follow up Diarrhea Weight Problem: Weight loss down approx 7 lbs in 1 week Fatigue: weakness Sleep Problem Abdominal Pain: Continues- PET scan completed yesterday HPI Bushra Rodrigez is a 69 year old female [...] for diarrhea which is not helping. Has Hudson for her back which she has been taking for her abdominal pain without much improvement. Needing to take Hudson more than prescribed. Past medical history, appointments, medications, allergies reviewed. Previous Medical History PAST MEDICAL HISTORY Diagnosis Date Anxiety with depression Chronic back pain Chronic kidney disease (CKD), stage 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 Johnson Dysphagia Dr. Stiles Ectopic 1991 GERD (gastroesophageal reflux disease) History of prediabetes Hyperlipidemia Hypertension Hypothyroidism Obesity (BMI 30.0-34.9) Other pulmonary embolism without acute cor pulmonale (HCC) [facility] Requ[facility] Previous Surgical History PAST [...] Known Problems Brother Stroke Maternal Grandmother or ID, patient unsure Coronary Artery Disease Maternal Grandfather Alcohol abuse Paternal Grandfather Patient Allergies ALLERGIES Allergen Reactions David Inhibitors Rash Codeine Vomiting, Other: See Comments Headache Remeron [Mirtazapin* Other: See Comments Fatigue Yogheib-Pvw-Osv Red* Myalgia Merlin Unknown Zetia [Ezetimibe] Myalgia Current Medications Current [...] not taking: Reported on 11/05/2024) mv,jaci,iron,mn/folic acid/chol (VSZI-TELF-MVQHR, PABA, ORAL) Take 1 tablet by mouth [...] diagnosis) Patient with worsening abdominal pain despite Hudson, diarrhea uncontrolled with OTC meds, nausea uncontrolled with zofran. Appears dehydrated. Losing weight. All likely 2/2 cancer of unknown origin. Discussed evaluation through ER with admission to help control pain, give her IV fluids, and ideallyget biopsies to determine cause for her cancer. Agreeable to ER evaluation through [facility]. Called and gave report to ER physician. Advised if they discharge her home without admission, would recommend [facility] or [facility]. Records sent with patient. to drive her [...] which included preparing to see the patient, kvve-fr-mqnj patient care, completing clinical documentation, obtaining and/or reviewing separately obtained history, performing a medically appropriate examination, counseling and educating the pat ient/family/caregiver, and ordering medications, tests, or procedures. Girish Lemos MD documented [facility] Telephone encounter Note * Telephone Encounter - Cady Briggs - 11/05/2024 1:56 PM EST RECOMMENDATION/PLAN: 1. Recommend biopsy of liver. Patient wants to think about it, she' ll call or MyChart if she decides to proceed as recommended [facility] Work Phone: 1(294) 847-890602-19-2025 Miscellaneous Notes* Telephone Encounter - Cady Briggs - 11/05/2024 1:56 PM EST RECOMMENDATION/PLAN: 1. Recommend biopsy of liver. Patient wants to think about it, she' ll call or MyChart if she decides to proceed as recommended documented in this encounterCommunity [facility]02-[facility]-2025 NoteHNO ID: [id number] Author: SILAS ROBBINS MD Service: ? Author Type: Physician Type: Progress Notes Filed: 11/05/2024 09:19 Note Text: HISTORY OF PRESENT ILLNESS: Bushra Rodrigez is a 69 year old female [...] 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 Johnson Dysphagia Dr. Stiles Ectopic 1991 GERD (gastroesophageal reflux disease) History of prediabetes Hyperlipidemia Hypertension Hypothyroidism Obesity (BMI 30.0-34.9) Other pulmonary embolism without acute cor pulmonale (HCC) Pneumonia due to [facility]- virus Requiring intubation PAST SURGICAL HISTORY Procedure [...] Known Problems Brother Stroke Maternal Grandmother or ID, patient unsure Coronary Artery Disease Maternal Grandfather [...] Drug use: No ALLERGIES: ALLERGIES Allergen Reactions David Inhibitors Rash Codeine Vomiting, Other: See Comments Headache Remeron [Mirtazapin* Other: See Comments Fatigue Mwywfqt-Xkr-Rch Red* Myalgia Merlin Unknown Zetia [Ezetimibe] Myalgia CURRENT OUTPATIENT MEDICATIONS: [...] not taking: Reported on 11/05/2024) mv,jaci,iron,mn/folic acid/chol (LANP-XZHI-DZIGH, PABA, ORAL) Take 1 tablet by mouth [...] which included preparing to see the patient, ibat-eb-cvxw patient care, completing clinical documentation, obtaining and/or reviewing separately obtained history, counseling and educ (more content not included)...[facility] 11-05-2024 History of Present illness Narrative* Silas Robbins MD - 11/05/2024 8:52 AM EST HISTORY OF PRESENT ILLNESS: Bushra Rodrigez is a 69 year old female [...] 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 Johnson Dysphagia Dr. Stiles Ectopic 1991 GERD (gastroesophageal reflux disease) History of prediabetes Hyperlipidemia Hypertension Hypothyroidism Obesity (BMI 30.0-34.9) Other pulmonary embolism without acute cor pulmonale (HCC) [facility] Requiring intubation PAST SURGICAL HISTORY Procedure [...] Known Problems Brother Stroke Maternal Grandmother or ID, patient unsure Coronary Artery Disease Maternal Grandfather [...] Drug use: No ALLERGIES: ALLERGIES Allergen Reactions David Inhibitors Rash Codeine Vomiting, Other: See Comments Headache Remeron [Mirtazapin* Other: See Comments Fatigue Xkrxvfc-Atk-Mll Red* Myalgia Merlin Unknown Zetia [Ezetimibe] Myalgia CURRENT OUTPATIENT MEDICATIONS: [...] not taking: Reported on 11/05/2024) mv,jaci,iron,mn/folic acid/chol (JTUH-QSPM-IHBXO, PABA, ORAL) Take 1 tablet by mouth [...] which included preparing to see the patient, mrdj-ic-dbin patient care, completing clinical documentation, obtaining and/or reviewing separately obtained history, counseling and educating the patient/family/caregiver, communicating with other HCPs (not separately reported), independently interpreting results (not separately reported), and communicating results to the patient/family/caregiver. Reviewed images. Electronically Signed: Silas Robbins MD November 05, 2024 8:52 AM documented in this encounterCommunity [facility]02-[facility]25 Telephone encounter Note * Telephone Encounter - Krystin Zimmerman LPN - 11/04/2024 5:02 PM EST Scan on 11/04/2024 1:33 PM by Provider, Vonnie PAShanikaC: Consultation - Pulmonary [facility]02-18-[facility]25 Miscellaneous Notes* Telephone Encounter - Krystin Zimmerman LPN - 11/04/2024 5:02 PM EST Scan on 11/04/2024 1:33 PM by Provider, External, PA-C: Consultation - Pulmonary * Telephone Encounter - [...] 11/04/2024 12:16 PM EST Roxann Gomez CNP [facility] calls and is requesting PCP to call her back about patient. Terri Dowell RN documented in this encounterCommunity [facility]02-18-2025 Telephone encounter Note * Telephone Encounter - [...] to Dr. Robbins to review as RAO. [facility]02-[facility] Telephone encounter Note* Telephone Encounter - Girish Lemos MD - 11/04/2024 12:26 PM EST Call is going to directly voicemail. Will call back after seeing next patient. [facility]02-18-[facility] Telephone encounter Note* Telephone Encounter - Terri Dowell RN - 11/04/2024 12:16 PM EST Roxann Gomez CNP [facility] calls and is requesting PCP to call her back about patient. Terri Dowell RN [facility]02-17-[facility] Telephone encounter Note* Telephone Encounter - Joyce Cisneros LPN - 11/03/2024 2:38 PM EST After speaking to Dr. Lee regarding this patient's records, I spoke with the patient and she decided to keep the appointment as scheduled with Dr. Robbins as to not delay her care. Joyce Cisneros LPN [facility]02-17-2025 Miscellaneous Notes* Telephone Encounter - Joyce Cisneros LPN - 11/03/2024 2:38 PM EST After speaking to Dr. Lee regarding this patient's records, I spoke with the patient and she decided to keep the appointment as scheduled with Dr. Robbins as to not delay her care. Joyce Cisneros LPN * Telephone Encounter - Cady Briggs - 11/03/2024 1:43 PM EST Patient [...] reschedule after patient has pet scan at [facility]. Daughter states wait until results from Pet scan and then patient will reschedule. documented in this encounterCommunity [facility]02-[facility]-2025 Telephone encounter Note * Telephone Encounter - Cady Briggs - 11/03/2024 1:43 PM EST Patient [...] reschedule after patient has pet scan at [facility]. Daughter states wait until results from Pet scan and then patient will reschedule. [facility] Work Phone: 1(709) 417-835402-17-2025 Evaluation note* Diagnosis Onset Date Resolution Status [...] 12, 2024 12:58pm Metastasis to liver acute 2024 12:58pm [facility] Work Phone: 1(572) 969-770302-17-2025 Evaluation note* Diagnosis Onset Date Resolution Status [...] 12, 2024 12:58pm Metastasis to liver acute 2024 12:58pm Elevated LFTs deleted November 122024 12:58pm Elevated lipase deleted November 12, 2024 12:58pm 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 November 24 2:38pm Jaundice acute November 24 2:38pm Metastasis to bone acute November 24, 2024 2:38pm Metastasis to liver acute November 24, 2024 2:38pm Regional lymph node metastas is present acute November 24, 2024 2:38pm Small cell lung cancer acute [facility] 2024 2:38pm Bilateral lower extremity edema acut e December 02, 2024 12:19pm Jaundice acute December 02 12:19pm Metastasis to bone acute December 02, 2024 12:19pm Metastasis to liver acute December 02, 2024 12:19pm Regional lymph node metastas is present acute December 02, 2024 12:19pm Small cell lung cancer acute [facility] 2024 12:19pm Bilateral lower extremity edema acut e December 09, 2024 9:51am Metastasis to bone acute December 09, 2024 9:51am Metastasis to liver acute December 09, 2024 9:51am Regional lymph node metastas is present acute December 09, 2024 9:51am Small cell lung cancer acute [facility] 2024 9:51am Encounter for insertion of venous access port acute December 10, 025 12:33pm 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 December 10 12:33pm [facility] Work Phone: 1(729) 846-281302-17-2025 Evaluation note* Diagnosis Onset Date Resolution Status [...] 2024 2:38pm Small cell lung cancer acute [facility] 2024 2:38pm Jaundice resolved November 24 2:38pm Bilateral lower extremity edema acute December 02, 2024 12:19pm Metastasis to bone acute December 02, 2024 12:19pm Metastasis to liver acute December 02, 2024 12:19pm Regional lymph node metastas is present acute December 02, 2024 12:19pm Small cell lung cancer acute [facility] 2024 12:19pm Jaundice resolved December 02 12:19pm Bilateral lower extremity edema acute December 09, 2024 9:51am Metastasis to bone acute December 09, 2024 9:51am Metastasis to liver acute December 09, 2024 9:51am Regional lymph node metastas is present acute December 09, 2024 9:51am Small cell lung cancer acute [facility] 2024 9:51am Encounter for insertion of venous access port acute December 10, 12:33pm High grade neuroendocrine carcinoma of lung [...] lung cancer acute Ap ril 2024 7:31pm [facility] Work Phone: 1(435) 366-274302-17-2025 Evaluation note* Diagnosis Onset Date Resolution Status [...] 2024 2:38pm Small cell lung cancer acute [facility] 2024 2:38pm Jaundice resolved November 24 2:38pm Bilateral lower extremity edema acute December 02, 2024 12:19pm Metastasis to bone acute December 02, 2024 12:19pm Metastasis to liver acute December 02, 2024 12:19pm Regional lymph node metastas is present acute December 02, 2024 12:19pm Small cell lung cancer acute [facility] 2024 12:19pm Jaundice resolved December 02 12:19pm Bilateral lower extremity edema acute December 09, 2024 9:51am Metastasis to bone acute December 09, 2024 9:51am Metastasis to liver acute December 09, 2024 9:51am Regional lymph node metastas is present acute December 09, 2024 9:51am Small cell lung cancer acute [facility] 2024 9:51am Encounter for insertion of [...] :56am Jaundice resolved February 03, 2025 7:56am [facility] Work Phone: 1(359) 709-920202-17-2025 Evaluation note* Diagnosis Onset Date Resolution Status [...] 24 2:38pm Small cell lung cancer acute [facility] 2024 2:38pm 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 November 24, 2024 2:38pm 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 November 24, 2024 2:38pm Regional lymph node metastas is present November 24, 2024 2:38pm Jaundice resolved November 24 2:38pm Bilateral lower extremity edema acute December 02, 2024 12:19pm Small cell lung cancer acute [facility] 2024 12:19pm 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 December 02, 2024 12:19pm 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 December 02, 2024 12:19pm 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 December 02, 2024 12:19pm Jaundice resolved December 02 12:19pm Bilateral lower extremity edema acute December 09, 2024 9:51am Small cell lung cancer acute [facility] 2024 9:51am 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 December 09, 2024 9:51am 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 December 09, 2024 9:51am 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 December 09, 2024 9:51am Encounter for insertion of venous access port acute December 10, 12:33pm High grade neuroendocrine carcinoma of lung [...] is present chronic February 24, 2025 7:52am [employer] Work Phone: 1(422) 542-353802-14-2025 Telephone encounter Note* Telephone Encounter - Delmis Park PSS - 10/31/2024 4:04 PM EST 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 Pt has an apt on 11-21-24 at [facility] with Pulmonology. Pt is trying to get this moved up. Please advise pt when the disk is done. Nallely Ambriz LPN documented in this encounterCommunity [facility] Center02-[facility]-2025 Telephone encounter Note * Telephone Encounter - Cady Briggs - 10/31/2024 2:36 PM EST Appointment scheduled. [facility] Work Phone: [phone]) 638-218902-14-2025 Miscellaneous Notes* Telephone Encounter - Cady Briggs - 10/31/2024 2:36 PM EST Appointment [...] Please review and advise. documented in this encounterCommunity [facility] Center02-14-2025 Telephone encounter Note * Telephone Encounter - Joyce Cisneros LPN - 10/31/2024 2:13 PM EST PSS- please schedule patient with Dr. Robbins on 11/05/2024 @ 9:00. Patient knows to arrive at 8:30. She is aware of the appointment. Joyce Cisneros LPN [facility]02-14-2025 Telephone encounter Note* Telephone Encounter - Nallely Ambriz LPN - 10/31/2024 12:10 PM EST Pt called to request a copy of the disk for the CT of chest pt had done 10/30/24. Pt has an apt on 11-21-24 at [facility] with Pulmonology. Pt is trying to get this moved up. Please advise pt when the disk is done. Nallely Ambriz LPN [facility]02-14-2025 Telephone encounter Note* Telephone Encounter - Lizzy Watson - 10/31/2024 9:19 AM EST Patient scheduled consultation with hepatology on 12/26/24 and has been added to wait list. Patient declined to schedule with provider's that had sooner availability due to distance to facilities. Routing message to [facility]/Onc to assist patient with scheduling oncology referral. [facility]02-14-2025 Miscellaneous Notes* Telephone Encounter - Lizzy Watson - 10/31/2024 9:19 AM EST Patient scheduled consultation with hepatology on 12/26/24 and has been added to wait list. Patient declined to schedule with provider's that had sooner availability due to distance to facilities. Routing message to [facility]On[facility] to assist patient with scheduling oncology referral. * Telephone Encounter - Marta Meadows RN - 10/31/2024 9:12 AM EST Patient returned call and given provider's message regarding CT scan results. Patient agreeable to schedule with sales analyst. 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 Faxed CT results and demographics to [facility] pulmonology per patient request. documented in this encounterCommunity [facility] Center02-14-2025 Telephone encounter Note * Telephone Encounter - Marta Meadows RN - 10/31/2024 9:12 AM EST Patient returned call and given provider's message regarding CT scan results. Patient agreeable to schedule with sales analyst. 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 Faxed CT results and demographics to [facility] pulmonology per patient request. [facility]02-14-[facility] Telephone encounter Note* Telephone Encounter - Joyce Cisneros LPN - 10/31/2024 8:55 AM EST Left message for patient to contact office. PSS- please offer her a new patient appointment TODAY with Dr. Hansen @ 10:30 or 1:00. Joyce Cisneros LPN [facility]02-13-2025 Telephone encounter Note* Telephone Encounter - Joyce Cisneros LPN - 10/30/2024 4:[address] chest results from 10/30/2024- IMPRESSION: 1. Irregular left upper lobe perihilar mass which could represent a primary lung malignancy or metastatic lesion 2. Mediastinal and left hilar lymphadenopathy CT abd/pel from 10/16/2024- Numerous bilobar hepatic masses Being referred by Dr. Lemos. No biopsy yet. Joyce Cisneros LPN [facility]02-13-2025 Telephone encounter Note* Telephone Encounter - Poonam [...] received and PCP advises. Poonam Denise RN [facility]02-13-2025 Miscellaneous Notes* Telephone Encounter - Poonam eDnise RN - 10/30/2024 9:36 AM EST Patient [...] advises. Poonam Denise RN documented in this encounterCommunity Regional Medical Center02-13-2025 History of Present illness Narrative* Liane Torres, RT(R) - 10/30/2024 8:00 AM EST [...] PATIENT PRESENTS WITH AN IMPLANTABLE OR ATTACHED SPEECH LANGUAGE PATHOLOGY ASSISTANT: No ALLERGIES: Reviewed and unchanged CONTRAST ALLERGY: [...] Completed: Chest SIGNATURE: GM Cristobal) PATIENT NAME: Bushra Rodrigez DATE: October 30, 2024 TIME: 12:42 PM documented in this encounterCommunity Regional Medical Center02-13-2025 NoteHNO ID: [id number] Author: LIANE TORRES RT(R) Service: ? Author Type: Grain Unloader Type: Progress Notes Filed: 10/30/2024 12:42 Note [...] PATIENT PRESENTS WITH AN IMPLANTABLE OR ATTACHED SPEECH LANGUAGE PATHOLOGY ASSISTANT: No ALLERGIES: Reviewed and unchanged CONTRAST ALLERGY: [...] Completed: Chest SIGNATURE: RT Levar(R) PATIENT NAME: Bushra Rodrigez DATE: October 30, 2024 TIME: 12:42 [facility]02-10-2025 Telephone encounter Note* Telephone Encounter - Joyce Cisneros LPN - 10/27/2024 9:[address] chest scheduled for 10/30/2024. Joyce Cisneros LPN [facility]02-05-2025 Telephone encounter Note* Telephone Encounter - Phylicia Heredia RN - 10/22/2024 3:19 PM EST Patient calls upset that the CT scan of her chest order has been cancelled four times. Patient requests order be sent to [facility] to see if they can see her any sooner that [facility]. Faxed per request to [phone]. Submitted PA to [employer] and Lori. Phylicia Heredia RN [facility]02-05-2025 Miscellaneous Notes* Telephone Encounter - Phylicia Heredia RN - 10/22/2024 3:19 PM EST Patient calls upset that the CT scan of her chest order has been cancelled four times. Patient requests order be sent to [facility] to see if they can see her any sooner that [facility]. Faxed per request to [phone]. Submitted PA to [employer] and Lori. Phylicia Heredia RN documented in this encounterCommunity [facility] Medical Center02-05-2025 Telephone encounter Note * Telephone Encounter - Joyce Cisneros LPN - 10/22/2024 10:31 AM EST D/T CT machine being down, CT chest rescheduled to 10/22/2024. Joyce Cisneros LPN [facility]02-03-2025 Telephone encounter Note* Telephone Encounter - Mae Wong MA - 10/20/2024 10:40 AM EST Pt notified of results via [employer]. Mae Wong Ma [facility]02-03-2025 Miscellaneous Notes* Telephone Encounter - Mae Wong MA - 10/20/2024 10:40 AM EST Pt notified of results via mychart. Mae Wong Ma * Telephone Encounter - Oleg Fields APRN.CNP - 10/20/2024 10:20 AM EST Please let patient know her hepatitis panel is negative. * Telephone Encounter - Arin Muoñz MA - 10/16/2024 3:00 PM EST Pt notified and scheduled for a follow up tomorrow Arin Muñoz MA * Telephone Encounter - Oleg Fields APRN.CNP - 10/16/2024 1:33 PM EST Please call patient and schedule follow up with Dr. Lemos for tomorrow to discuss results and care plan. Also let patient know I have ordered follow up labs. documented in this encounterCommunity [facility] Medical Center02-03-2025 Telephone encounter Note * Telephone Encounter - Oleg Fields APRN.CNP - 10/20/2024 10:20 AM EST Please let patient know her hepatitis panel is negative. [facility]02-03-2025 Telephone encounter Note* Telephone Encounter - Mae Wogn MA - 10/20/2024 10:11 AM EST Pt notified of results via mychart. Mae Wong Ma [facility]02-03-2025 Miscellaneous Notes* Telephone Encounter - Mae Wong MA - 10/20/2024 10:11 AM EST Pt notified of results via [employer]. Mae Wong Ma * Telephone Encounter - Mae Wong MA - 10/20/2024 10:10 AM EST ----- Message from Girish Lemos MD sent at 10/19/2024 2:20 PM EST ----- Normal alpha fetoprotein level. Follow up with CT chest and referrals as discussed in office. documented in this encounterCommunity Regional Medical Center02-03-2025 Telephone encounter Note * Telephone Encounter - Mae Wong MA - 10/20/2024 10:10 AM EST ----- Message from Girish Lemos MD sent at 10/19/2024 2:20 PM EST ----- Normal alpha fetoprotein level. Follow up with CT chest and referrals as discussed in office. [facility] Telephone encounter Note* Telephone Encounter - Joyce Cisneros LPN - 10/20/2024 8:34 AM EST Scheduled for CT chest today to find primary. Will need biopsy. Jocye Cisneros LPN [facility]02-03-2025 Telephone encounter Note* Telephone Encounter - Jyotsna Bender - 10/20/2024 8:29 AM EST Patient has consult to Oncology that needs to be scheduled. DX: Liver Masses Insurance: O Medicare Advantage HMO Referred by: Girish Lemos MD Please review and advise. [facility]02-02-2025 Telephone encounter Note* Telephone Encounter - Girish Lemos MD - 10/19/2024 1:52 PM EST Thank you. [facility]02-02-2025 Miscellaneous Notes* Telephone Encounter - Girish Lemos MD - 10/19/2024 1:52 PM EST Thank you. * Telephone Encounter - Mahnaz Bellamy MSW - 10/17/2024 3:50 PM EST Sw spoke with patient regarding transportation needs. Patient reports that she does live in [place]. Her spouse takes her to doctor appts, he is just not able to drive early in the morning or late at night, due to vision issues. Patient reports I do think that my Medicare Advantage plan has transportation. Patient will giveher insurance a call to discuss transportation and see if she has that as a benefit. Patient and Sw also discussed [employer] [place] [facility]. Sw provided patient with the number for [facility] [facility]. [facility] [facility] coordinates local churches in [place] to address needs of residents. Patient notes that she will check with [employer] if insurance is unable to provide transportation assistance. Sw also provided patient with direct number and discussed other needs ie home care, home delivered meals, financial assistance needs that Sw could help with linking to resources. Patient thanked SW for call and will let Sw know if she has any further needs. documented in this encounterCommunity Regional Medical Center01-31-2025 Telephone encounter Note * Telephone Encounter - Mahnaz Bellamy MSW - 10/17/2024 3:50 PM EST Sw spoke with patient regarding transportation needs. Patient reports that she does live in [place]. Her spouse takes her to doctor appts, he is just not able to drive early in the morning or late at night, due to vision issues. Patient reports I do think that my Medicare Advantage plan has transportation. Patient will giveher insurance a call to discuss transportation and see if she has that as a benefit. Patient and Sw also discussed [employer] [place] [facility]. Sw provided patient with the number for [employer]. [employer] coordinates local churches in [place] to address needs of residents. Patient notes that she will check with [employer] if insurance is unable to provide transportation assistance. Sw also provided patient with Sw direct number and discussed other needs ie home care, home delivered meals, financial assistance needs that Sw could help with linking to resources. Patient thanked SW for call and will let Sw know if she has any further needs. [facility]01[facility]2025 NoteHNO ID: [id number] Author: GIRISH LEMOS MD Service: ? Author Type: Physician Type: Progress Notes Filed: 10/17/2024 15:26 Note Text: Chief Complaint Patient presents with: Follow Up: discuss lab results and care plan, diarrhea x 3 days HPI Bushra Rodrigez is a 68 year old female [...] pain, currently 5/10. Treating at home with Hudson which Dr. 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 Johnson Dysphagia Dr. Stiles Ectopic 1991 GERD (gastroesophageal reflux disease) History of prediabetes Hyperlipidemia Hypertension Hypothyroidism Obesity (BMI 30.0-34.9) Other pulmonary embolism without acute cor pulmonale (HCC) [facility] Requiring intubation Previous Surgical History PAST [...] Cancer Brother lung Stroke Maternal Grandmother or ID, patient unsure Coronary Artery Disease Maternal Grandfather No Known Problems Sister Patient Allergies ALLERGIES Allergen Reactions David Inhibitors Rash Codeine Vomiting, Other: See Comments Headache Remeron [Mirtazapin* Other: See Comments Fatigue Aidyenj-Xps-Qqt Red* Myalgia Merlin Unknown Zetia [Ezetimibe] Myalgia Current Medications Current [...] once for 1 dose.N (more content not included)...[facility]01-31-2025 History of Present illness Narrative* Girish Lemos MD - 10/17/2024 1:10 PM EST Chief Complaint Patient presents with: Follow Up: discuss lab results and care plan, diarrhea x 3 days HPI Bushra Rodrigez is a 68 year old female [...] RUQ pain, currently 5/10. Treating at homewith Hudson which Dr. 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 Johnson Dysphagia Dr. Stiles Ectopic 1991 GERD (gastroesophageal reflux disease) History of prediabetes Hyperlipidemia Hypertension Hypothyroidism Obesity (BMI 30.0-34.9) Other pulmonary embolism without acute cor pulmonale (HCC) [facility] [place] Requiring intubation Previous Surgical History PAST [...] Cancer Brother lung Stroke Maternal Grandmother or ID, patient unsure Coronary Artery Disease Maternal Grandfather No Known Problems Sister Patient Allergies ALLERGIES Allergen Reactions Davdi Inhibitors Rash Codeine Vomiting, Other: See Comments Headache Remeron [Mirtazapin* Other: See Comments Fatigue Aajoxza-Sth-Yiz Red* Myalgia Merlin Unknown Zetia [Ezetimibe] Myalgia Current Medications Current [...] designated per enteric contrast guidelines mv,jaci,iron,mn/folic acid/chol (AGVH-[id number]-BBFKN, PABA, ORAL) Take 1 tablet by mouth [...] Abs Lymph 1.00 - 4.00 k/uL 1.31 [place]% % 13.9 Abs [place] <0.87 k/uL 0.66 [place]% % 1.7 Abs [...] which included preparing to see the patient, vpan-[id number]-[id number] patient care, completing clinical documentation, obtaining and/or reviewing separately obtained history, performing a medically appropriate examination, counseling and educating the pat ient/family/caregiver, and ordering medications, tests, or procedures. Girish Lemos MD documented in this encounterCommunity [facility] Medical Center01-30-2025 Telephone encounter Note * Telephone Encounter - Arin Muñoz MA - 10/16/2024 3:00 PM EST Pt notified and scheduled for a follow up tomorrow Arin Muñoz MA [facility]01-30-2025 Telephone encounter Note* Telephone Encounter - Oleg Fields APRN.CNP - 10/16/2024 1:33 PM EST Please call patient and schedule follow up with Dr. Lemos for tomorrow to discuss results and care plan. Also let patient know I have ordered follow up labs. [facility]01-30-2025 NoteHNO ID: [id number] Author: OLEG FIELDS APRN.[employer]IMING P[employer]DER PREMIX BLENDER Service: ? 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 Johnson Dysphagia Dr. Stiles Ectopic 1991 GERD (gastroesophageal reflux disease) History of prediabetes Hyperlipidemia Hypertension Hypothyroidism Obesity (BMI 30.0-34.9) Other pulmonary embolism without acute cor pulmonale (HCC) [facility] [place] Requiring intubation Previous Surgical History PAST [...] Cancer Brother lung Stroke Maternal Grandmother or ID, patient unsure Coronary Artery Disease Maternal Grandfather No Known Problems Sister Patient Allergies ALLERGIES Allergen Reactions David Inhibitors Rash Codeine Vomiting, Other: See Comments Headache Remeron [Mirtazapin* Other: See Comments Fatigue Mdqhjpw-Klz-Dxv Red* Myalgia Merlin Unknown Zetia [Ezetimibe] Myalgia Current Medications Current [...] hours as needed for pain. mv,jaci,iron,mn/folic acid/chol (EFER-UFLR-WRRHH, PABA, ORAL) Take 1 tablet by mouth [...] on 07/15/2027 Lipid Screeni (more content not included)...[facility]01-30-2025 History of Present illness Narrative* Oleg Fields, ALEXA.PRIMING POWDER PREMIX BLENDER - 10/16/2024 8:38 AM EST Chief Complaint Patient presents with: Abdominal Pain: X 1 month HPI Bushra Rodrigez is a 68 year old female [...] III (moderate) (HCC) Colon polyp tubular adenoma [address] 07/16 to 08/17 DDD (degenerative disc [...] Cancer Brother lung Stroke Maternal Grandmother or ID, patient unsure Coronary Artery Disease Maternal Grandfather No Known Problems Sister Patient Allergies ALLERGIES Allergen Reactions David Inhibitors Rash Codeine Vomiting, Other: See Comments Headache Remeron [Mirtazapin* Other: See Comments Fatigue Xyiosna-Quo-Zzo Red* Myalgia Merlin Unknown Zetia [Ezetimibe] Myalgia Current Medications Current [...] hours as needed for pain. mv,jaci,iron,mn/folic acid/chol (WYBW-YXZV-FZVUE, PABA, ORAL) Take 1 tablet by mouth [...] - CT ABD/PEL W IVCON Oleg Fields APRN.PRIMING POWDER PREMIX BLENDER documented in this encounterCommunity [facility] Medical Center01-29-2025 Telephone encounter Note * Telephone Encounter - [...] pain, vomiting Protocols used: Abdominal Pain - Ksbqxg-OERIP-LK [facility]01-29-2025 Miscellaneous Notes* Telephone Encounter - Phylicia Heredia RN - 10/15/2024 8:27 AM EST Patient calls for stomach discomfort. Nurse triage completed. Protocol recommends see provider within 24 hours. Patient not able to come in for appt with PCP dyad. [facility] [...] pain, vomiting Protocols used: Abdominal Pain - Plqoim-WLXQL-BW documented in this encounterCommunity Regional Medical Center01-03-2025 NoteHNO ID: [id number] Author: GIRISH LEMOS MD Service: ? Author Type: Physician Type: Progress Notes Filed: 09/19/2024 13:08 Note Text: Chief Complaint Patient presents with: Blood Pressure: Recheck-losartan increased to 50mg.No note of call back from [facility] [place] around 09/03/24 as requested with readings. Patient reports am readings higher but was advised by visiting nurse to take prior to medication. HPI Bushra Rodrigez is a 68 year old female [...] with average BP's in the 130/70's range. Bushra denies regular aerobic exercise. 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 Johnson Dysphagia Dr. Stiles Ectopic 1991 GERD (gastroesophageal reflux disease) History of prediabetes Hyperlipidemia Hypertension Hypothyroidism Obesity (BMI 30.0-34.9) Other pulmonary embolism without acute cor pulmonale (HCC) [facility] [place] Requiring intubation Previous Surgical History PAST [...] Cancer Brother lung Stroke Maternal Grandmother or ID, patient unsure Coronary Artery Disease Maternal Grandfather No Known Problems Sister Patient Allergies ALLERGIES Allergen Reactions David Inhibitors Rash Codeine Vomiting, Other: See Comments Headache Remeron [Mirtazapin* Other: See Comments Fatigue Jacudcn-Eji-Cjj Red* Myalgia Merlin Unknown Zetia [Ezetimibe] Myalgia Current Medications Current [...] mouth two times a day. mv,jaci,iron,mn/folic acid/chol (CONF-RAGC-UDBNA, PABA, ORAL) Take 1 tablet by mouth [...] distress, well-hydrated, well nouris (more content not included)...[facility]01-03-2025 History of Present illness Narrative* Girish Lemos MD - 09/19/2024 9:57 AM EST Chief Complaint Patient presents with: Blood Pressure: Recheck-losartan increased to 50mg.No note of call back from [facility] 09/03/24 as requested with readings. Patient reports am readings higher but was advised by visiting nurse to take prior to medication. HPI Bushra Rodrigez is a 68 year old female [...] with average BP's in the 130/70's range. Bushra denies regular aerobic exercise. 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 Johnson Dysphagia Dr. Stiles Ectopic 1991 GERD (gastroesophageal reflux disease) History of prediabetes Hyperlipidemia Hypertension Hypothyroidism Obesity (BMI 30.0-34.9) Other pulmonary embolism without acute cor pulmonale (HCC) Pneumonia due to [facility]- virus Requiring intubation Previous Surgical History PAST [...] Cancer Brother lung Stroke Maternal Grandmother or ID, patient unsure Coronary Artery Disease Maternal Grandfather No Known Problems Sister Patient Allergies ALLERGIES Allergen Reactions David Inhibitors Rash Codeine Vomiting, Other: See Comments Headache Remeron [Mirtazapin* Other: See Comments Fatigue Nrqkvgk-Yzl-Bed Red* Myalgia Merlin Unknown Zetia [Ezetimibe] Myalgia Current Medications Current [...] mouth two times a day. mv,jaci,iron,mn/folic acid/chol (RKCM-ZOPD-UGDVJ, PABA, ORAL) Take 1 tablet by mouth [...] exercise Girish Lemos MD documented in this encounterCommunity [facility] Medical Center12-11-2024 Telephone encounter Note * Telephone Encounter - Kristen Baker RN - 08/27/2024 10:50 AM EST Jeanne- [facility] [place] called and is notified of providers message and instructions. She voices understanding and will send updated Bps in one week. Kristen Baker RN [facility]12-11-2024 Miscellaneous Notes* Telephone Encounter - Kristen Baker RN - 08/27/2024 10:50 AM EST Jeanne- [facility] [place] called and is notified of providers message and instructions. She voices understanding and will send updated Bps in one week. Kristen Baker RN * Telephone Encounter - Girish Lemos MD - 08/27/2024 10:15 AM EST BP still high on this dosage after about 1 week. Please send updated BP in 1 week. If still high then, will increase to 100 mg daily. * Telephone Encounter - Marta Meadows RN - 08/27/2024 9:33 AM EST Jeanne- [facility] [place]- reports she received a referral from patient's insurance company, once patient's losartan was increased, for their 3 mth monitoring program. [facility] monitors quality of life, checks VS's, [...] weeks. Given fax number. documented in this encounterCommunity [facility] Medical Center12-11-2024 Telephone encounter Note * Telephone Encounter - Girish Lemos MD - 08/27/2024 10:15 AM EST BP still high on this dosage after about 1 week. Please send updated BP in 1 week. If still high then, will increase to 100 mg daily. [facility] Telephone encounter Note* Telephone Encounter - Marta Meadows RN - 08/27/2024 9:33 AM EST Jeanne- [facility] [place]- reports she received a referral from patient's insurance company, once patient's losartan was increased, for their 3 mth monitoring program. [facility] monitors quality of life, checks VS's, [...] patient for 3 weeks. Given fax number. 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 Johnson Dysphagia Dr. Stiles Ectopic 1991 GERD (gastroesophageal reflux disease) History of prediabetes Hyperlipidemia Hypertension Hypothyroidism Obesity (BMI 30.0-34.9) Other pulmonary embolism without acute cor pulmonale (HCC) Pneumonia due to [facility]- virus Requiring intubation ALLERGIES David Inhibitors, Codeine, Remeron [Mirtazapine], Qzvqcwj-Ixr-Ifn Reductase Inhibitors, Merlin, and Zetia [Ezetimibe] MEDICATIONS Current Outpatient Medications [...] hours as needed for pain. mv,jaci,iron,mn/folic acid/chol (YSCM-PPEU-BTUQZ, PABA, ORAL) Take 1 tablet by mouth [...] Level: 4 - Moderate documented in this encounterCommunity Regional Medical Center12-03-2024 NoteHNO ID: [id number] Author: JEANETTE BERRIOS APRN.CNP Service: ? 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 Johnson Dysphagia Dr. Stiles Ectopic 1991 GERD (gastroesophageal reflux disease) History of prediabetes Hyperlipidemia Hypertension Hypothyroidism Obesity (BMI 30.0-34.9) Other pulmonary embolism without acute cor pulmonale (HCC) Pneumonia due to [facility]- virus Requiring intubation ALLERGIES David Inhibitors, Codeine, Remeron [Mirtazapine], Clpvxgs-Gux-Qls Reductase Inhibitors, Merlin, and Zetia [Ezetimibe] MEDICATIONS Current Outpatient Medications [...] hours as needed for pain. mv,jaci,iron,mn/folic acid/chol (XENG-FPMD-DJBPL, PABA, ORAL) Take 1 tablet by mouth [...] - LOSARTAN 50 MG TABLET Jeanette Berrios APRN.PRIMING POWDER PREMIX BLENDER Prescription instructions reviewed with patient as applicable. [...] testing/treatment Medical Decision Making Level: 4 - [facility] NoteHNO ID: [id number] Author: JEANETTE BERRIOS APRN.PRIMING POWDER PREMIX BLENDER Service: ? Author Type: Nurse Practitioner Type: [...] No. ASTHMA/Pulmonary HTN:/ARMANDO: Follows with Dr. 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 Last visit in May. 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 Johnson Dysphagia Dr. Stiles Ectopic 1991 GERD (gastroesophageal reflux disease) History of prediabetes Hyperlipidemia Hypertension Hypothyroidism Obesity (BMI 30.0-34.9) Other pulmonary embolism without acute cor pulmonale (HCC) [facility] Requiring intubation ALLERGIES David Inhibitors, Codeine, Remeron [Mirtazapine], Jhlprou-Gld-Tag Reductase Inhibitors, Merlin, and Zetia [Ezetimibe] MEDICATIONS Current Outpatient Medications [...] hours as needed for pain. mv,jaci,iron,mn/folic acid/chol (LAWJ-PQHD-LUGKP, PABA, ORAL) Take 1 tablet by mouth [...] Abs Lymph 1.00 - 4.00 k/uL 1.36 [place]% % 13.7 Abs [place] <0.87 k/uL 0.58 Eosin% % 2.4 Abs Eosin <0.46 k/uL 0.10 Baso% % 1.4 Abs Baso <0.11 k/uL 0.06 Immature Gran % % 0.5 IMMATURE GRANS (ABS) <0.10 k/uL <0.03 NRBC /100 WBC 0 (more content not included)...[facility] 07-[facility] History of Present illness Narrative* Jeanette Berrios APRN.PRIMING POWDER PREMIX BLENDER - 07/15/2024 8:56 AM EDT 07/15/2024 Patient [...] No. ASTHMA/Pulmonary HTN:/ARMANDO: Follows with Dr. 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 Last visit in May. 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 Johnson Dysphagia Dr. Stiles Ectopic 1991 GERD (gastroesophageal reflux disease) History of prediabetes Hyperlipidemia Hypertension Hypothyroidism Obesity (BMI 30.0-34.9) Other pulmonary embolism without acute cor pulmonale (HCC) P[facility] Requiring intubation ALLERGIES David Inhibitors, Codeine, Remeron [Mirtazapine], Knzcgeg-Skz-Rqx Reductase Inhibitors, Merlin, and Zetia [Ezetimibe] MEDICATIONS Current Outpatient Medications [...] hours as needed for pain. mv,jaci,iron,mn/folic acid/chol (DRQU-TGJL-DBIQS, PABA, ORAL) Take 1 tablet by mouth [...] or lesions to exposed skin Latest Ref [facility] 01/18/2024 WBC 3.70 - 11.00 k/uL 4.22 [...] Abs Lymph 1.00 - 4.00 k/uL 1.36 [place]% % 13.7 Abs [place] <0.87 k/uL 0.58 Eosin% % 2.4 Abs [...] - Follow up in 6 months Jeanette Berrios APRN.CNP Prescription instructions reviewed with [...] Level: 4 - Moderate documented in this encounterCommunity [facility] Center10-25-[facility]24 Telephone encounter Note * Telephone Encounter - [...] Briseyda Kong July 11, 2024 8:49 AM [facility]10-25-2024 Miscellaneous Notes* Telephone Encounter - Briseyda Kong [...] 11, 2024 8:49 AM documented in this encounterCommunity [facility] Center10-09-2024 NotePatient Outreach (INTMMN) BUSHRA RODRIGEZ ([id number]) 1955 F Date Time Provider Department 06/25/24 GIRISH LEMOS INTMMN During your visit today, we recorded the following information about you: Allergies As of Date: 06/25/2024 Noted Allergy Reaction DAVID INHIBITORS 10/06/2017 2 - Rash CODEINE 10/06/2017 11 - Vomiting 14 - Other: See Comments Comments: Headache REMERON (MIRTAZAPINE) 01/17/2021 14 - Other: See Comments Comments: Fatigue ODFOTIG-AZR-OSH REDUCTASE INHIBIT*11/14/2017 17 - Myalgia WALNUT 10/06/2017 16 - Unknown ZETIA (EZETIMIBE) 01/17/2021 17 - Myalgia Date Reviewed: 01/08/2024 Reviewed by: Krystin Zimmerman LPN - Fully Assessed Visit Diagnosis:Encounter for screening mammogram for breast cancer [Z12.31] Order(s):LYN SCREENING W ANT [[id number]] Order #: [id number] FUTURE Prescriptions as of 06/30/2024 - potassium [...] as needed for pain. - mv,jaci,iron,mn/folic acid/chol (GGMC-LEWF-DTIWX, PABA, ORAL) Take 1 tablet by mouth [...] 06/22/2023 Encounter Status:Closed by ELLIOTT ANNA on 06/30/24[facility] Telephone encounter Note* Telephone Encounter - Meridian Beverley Royal - 04/28/2024 2:01 PM EDT [...] Beverley Royal April 28, 2024 2:02 PM [facility]08-12-[facility]24 Miscellaneous Notes* Telephone Encounter - Beverley Colbert [...] 28, 2024 2:02 PM documented in this encounterCommunity [facility] Center05-06-2024 Telephone encounter Note * Telephone Encounter - Mae Wong MA - 01/21/2024 10:45 AM EDT Pt notified and voiced understanding. Mae Wong MA [facility]05-06-2024 Miscellaneous Notes* Telephone Encounter - Mae Wong [...] normal. Jeanette Berrios APRN.CNP documented in this encounterCommunity Regional Medical Center05-06-2024 Telephone encounter Note * Telephone Encounter - Mae Wong MA - 01/21/2024 10:44 AM EDT ----- Message from Jeanette Berrios APRN.CNP sent at 01/21/2024 6:40 AM EDT ----- Vitamin D mildly low- if not already should take 2000 units daily- may get this over the counter. The rest of her blood work is normal. Jeanette Berrios APRN.CNP [facility]04-23-2024 History of Present illness Narrative* Jeanette Berrios [...] Dizziness: No. ASTHMA/Pulmonary HTN: Follows with Dr. Major, fleet manager/dispatch. Has follow-up with pulmonology next week. HYPOTHYROIDISM: [...] 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 Johnson Dysphagia Dr. Stiles Ectopic 1991 GERD (gastroesophageal reflux disease) History of prediabetes Hyperlipidemia Hypertension Hypothyroidism Obesity (BMI 30.0-34.9) Other pulmonary embolism without acute cor pulmonale (HCC) [facility] Requiring intubation ALLERGIES David Inhibitors, Codeine, Remeron [Mirtazapine], Mcfktbk-Fwz-Qdf Reductase Inhibitors, Merlin, and Zetia [Ezetimibe] MEDICATIONS Current Outpatient Medications [...] not taking: Reported on 06/22/2023) mv,jaci,iron,mn/folic acid/chol (PTEB-NMNX-UQVYF, PABA, ORAL) Take 1 tablet by mouth [...] Level: 4 - Moderate documented in this encounterCommunity Regional Medical Center02-06-2024 Miscellaneous Notes* Telephone Encounter - Bandar Landry LPN - 10/23/2023 10:46 AM EST [...] primary care: 12/24/2023 Please advise. Thank you. Bandar Landry LPN. documented in this encounterCommunity [facility] Medical Center10-06-2023 Instructions* Patient Instructions* Jeanette Berrios APRN.CNP - 06/22/2023 9:17 AM EDT Check labs in August, follow-up in 6 months for routine visit Use debrox for ear documented in this encounterCommunity Regional Medical Center10-06-2023 History of Present illness Narrative* Jeanette Berrios POSITION CLASSIFICATION SPECIALIST.PRIMING POWDER PREMIX BLENDER - 06/22/2023 8:53 AM EDT 06/22/2023 Patient [...] bedning over. ASTHMA: Follows with Dr. James, [facility] fleet manager/dispatch with last visit on 03/13/2023. Completed PFT and walking test. Patient reports was told looks like she is improving some Patient reports spoke with sleep medicine over at [facility] and was told she has horrible insomnia. Will be following up with sleep medicine. Has CPAP she uses sometimes HYPOTHYROIDISM: taking synthroid as prescribed without side effects PREDIABETES: tries to eat lower carbohydrate diet and stay active. 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 Johnson Dysphagia Dr. Stiles Ectopic 1991 GERD (gastroesophageal reflux disease) History of prediabetes Hyperlipidemia Hypertension Hypothyroidism Obesity (BMI 30.0-34.9) Other pulmonary embolism without acute cor pulmonale (HCC) [facility] Requiring intubation ALLERGIES David Inhibitors, Codeine, Remeron [Mirtazapine], Zzbvwsv-Bqg-Zgg Reductase Inhibitors, Merlin, and Zetia [Ezetimibe] MEDICATIONS Current Outpatient Medications [...] tablets by mouth once daily. mv,jaci,iron,mn/folic acid/chol (JLMG-ZRWF-BSVEI, PABA, ORAL) Take 1 tablet by mouth [...] Abs Lymph 1.00 - 4.00 k/uL 1.41 [place]% % 12.2 Abs [place] <0.87 k/uL 0.66 Eosin% % 2.8 Abs [...] - ICD9: 426.11, ICD10: I44.0 - follow-up [facility] cardiology as recommended Jeanette Berrios APRN.PRIMING POWDER PREMIX BLENDER Prescription instructions reviewed with patient as applicable. [...] which included preparing to see the patient, qjxm-vu-pzio patient care, completing clinical documentation, obtaining and/or reviewing separately obtained history, performing a medically appropriate examination, counseling and educating the pat ient/family/caregiver, and ordering medications, tests, or procedures. documented in this encounterCommunity Regional Medical Center08-21-2023 Miscellaneous Notes* Telephone Encounter - Rosario Haddad [...] her insurance. Pended. Needs diagnosis. Fax to [phone]. Phylicia Heredia RN documented in this encounterCommunity Regional Medical Center08-21-2023 Procedure [facility]07-28-2023 Miscellaneous Notes* Telephone Encounter - Phylicia Heredia [...] 02/20/2023 308 04/20/2021 277 Potassium: 4.7 on 6. Please advise. Thank you. Phylicia Heredia RN documented in this encounterCommunity Regional Medical Center07-05-2023 Instructions* Patient Instructions* Jeanette Berrios APRN.CNP - 03/21/2023 9:29 AM EDT Make appointment with Dr. Stiles to discuss colonoscopy documented in this encounterCommunity Regional Medical Center07-05-2023 History of Present illness Narrative* Jeanette Berrios APRN.CNP - 03/21/2023 9:11 AM EDT 03/21/2023 Patient presents with: Recheck: Low heart rate SUBJECTIVE: This is a 67 year old that is here today for Above Complaints. BP elevated at last office visit. No medication changes made at that time. Not checking BP at home.Admits to chronic intermittent dizziness since [facility]. Denies visual changes, headaches, slurred speech, facial drooping, extremity numbness, tingling, weakness, presyncope, syncope, worsening SOB from her baseline, dyspnea, wheezing, coughing, orthopnea, chest pain or palpitations. 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 Johnson Dysphagia Dr. Stiles Ectopic 1991 GERD (gastroesophageal reflux disease) History of prediabetes Hyperlipidemia Hypertension Hypothyroidism Obesity (BMI 30.0-34.9) Other pulmonary embolism without acute cor pulmonale (HCC) Pneumonia due to [place] [address] virus Requiring intubation ALLERGIES David Inhibitors, Codeine, Remeron [Mirtazapine], Bilvyot-Xvw-Mct Reductase Inhibitors, Merlin, and Zetia [Ezetimibe] MEDICATIONS Current Outpatient Medications [...] tablets by mouth once daily. mv,jaci,iron,mn/folic acid/chol (XHHO-FXNU-NIWTH, PABA, ORAL) Take 1 tablet by mouth [...] - follow-up if not resolving Jeanette Berrios APRN.DIA Prescription instructions reviewed with [...] which included preparing to see the patient, vkkg-in-uqob patient care, completing clinical documentation, obtaining and/or reviewing separately obtained history, performing a medically appropriate examination, counseling and educating the pat ient/family/caregiver, and ordering medications, tests, or procedures. documented in this encounterCommunity Regional Medical Center07-03-2023 Miscellaneous Notes* Telephone Encounter - Priti Heck LPN - 03/19/2023 2:49 PM EDT Thi from [facility] [place] asking that last office visit and EKg be faxed to Dr. Richard Castillo. These were faxed to [phone]. documented in this encounterCommunity Regional Medical Center06-07-2023 Miscellaneous Notes* Telephone Encounter - Bandar Landry LPN - 02/21/2023 10:59 AM EDT Patient returned call and went over results, notes from Jeanette Berrios SYSTEM CONTROLLER with understanding. Patient said she can not [...] AM EDT ----- Message from Jeanette Berrios APRN.PRIMING POWDER PREMIX BLENDER sent at 02/21/2023 7:45 AM EDT ----- Cholesterol levels about the same as last check. Continue to eat lower saturated fat diet and aim for at least 150 minutes of exercise per week. A1c remains the same in prediabetic range- continue lower carbohydrate diet and exercise as mentioned abo ve. The rest of her blood work is within acceptable ranges. Jeanette Berrios APRN.PRIMING POWDER PREMIX BLENDER documented in this encounterCommunity Regional Medical Center06-06-2023 Nurse Note* Krystin Zimmerman LPN - 02/20/2023 9:25 AM EDT ROSALVA BP: BP 163/84 P 47 #1 BP 167/90 P 47 #2 BP 166/80 P 50 #3 BP 164/89 P 47 #4 BP 164/90 P 46 #5 BP 153/84 P 46 #6 BP 166/81 P 47 Krystin Zimmerman LPN documented in this encounterCommunity Regional Medical Center06-06-2023 History of Present illness Narrative* Jeanette Berrios APRN.PRIMING POWDER PREMIX BLENDER - 02/20/2023 8:46 AM EDT 02/20/2023 Patient [...] 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 Johnson Dysphagia Dr. Stiles Ectopic 1991 GERD (gastroesophageal reflux disease) History of prediabetes Hyperlipidemia Hypertension Hypothyroidism Obesity (BMI 30.0-34.9) Other pulmonary embolism without acute cor pulmonale (HCC) Pneumonia due to [place] [address] virus Requiring intubation ALLERGIES David Inhibitors, Codeine, Remeron [Mirtazapine], Wvuwogq-Hvn-Vnz Reductase Inhibitors, Merlin, and Zetia [Ezetimibe] MEDICATIONS Current Outpatient Medications [...] by mouth three times daily. mv,jaci,iron,mn/folic acid/chol (JUAJ-ETXO-RFTRF, PABA, ORAL) Take 1 tablet by mouth [...] - follow-up pending blood work Jeanette Berrios APRN.CNP Prescription instructions reviewed with [...] which included preparing to see the patient, plgk-wk-xsxh patient care, completing clinical documentation, obtaining and/or reviewing separately obtained history, performing a medically appropriate examination, counseling and educating the pat ient/family/caregiver, and ordering medications, tests, or procedures. documented in this encounterCommunity Regional Medical Center05-10-2023 History of Present illness Narrative* Barbara Salinas LPN - 01/24/2023 10:09 AM EDT Per Bushra Andre was provided with powerstep original, size 8, and instructed/educated in its application, wear, and care. All questions were answered, and patient was able to demonstrate competence with the necessary skills to utilize the above equipment. Per Dr. Merida Bushra was provided with gel toe cap, size S, and instructed/educated in its application, wear, and care. All questions were answered, and patient was able to demonstrate competence with the necessary skills to utilize the above equipment. Barbara Salinas LPN * Talat Magnolia - 01/24/2023 9:56 AM EDT Images from [...] 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 Johnson Dysphagia Dr. Stiles Ectopic 1991 GERD (gastroesophageal reflux disease) History of prediabetes Hyperlipidemia Hypertension Hypothyroidism Obesity (BMI 30.0-34.9) Other pulmonary embolism without acute cor pulmonale (HCC) [facility] Requiring intubation Current Outpatient Medications Medication [...] tablets by mouth once daily. mv,jaci,iron,mn/folic acid/chol (LTTR-QQZK-ZKYXU, PABA, ORAL) Take 1 tablet by mouth [...] medications for this visit. ALLERGIES Allergen Reactions David Inhibitors Rash Codeine Vomiting, Other: See Comments Headache Remeron [Mirtazapin* Other: See Comments Fatigue Rplgmtx-Npn-Zmx Red* Myalgia Merlin Unknown Zetia [Ezetimibe] Myalgia PAST SURGICAL HISTORY [...] Cancer Brother lung Stroke Maternal Grandmother or ID, patient unsure Coronary Artery Disease Maternal Grandfather [...] Talat Merida DPM Podiatry [address] [facility] [address] Dept: [phone] Dept * Barbara Salinas LPN - 01/24/2023 [...] toe. Barbara Salinas LPN documented in this encounterCommunity Regional Medical Center05-10-2023 Instructions* Patient Instructions* Talat Merida - 01/24/2023 10:02 AM EDT Recommend gel pad while walking to help cushion the left 5th toe Powerstep Original Full length. Can purchase at [employer] here in [place], [employer] in [place] or [place]. Also can find in [place] in [facility]. Powersteps can also be purchased online, [...] everything fits well together documented in this encounterCommunity Regional Medical Center05-10-2023 History of Present illness Narrative* Antonia Simms RT(R) - 01/24/2023 9:00 AM EDT Radiology Service Progress Note PATIENT NAME: Bushra Rodrigez DATE OF SERVICE: January 24, 2023 [...] 24, 2023 8:50 AM documented in this encounterCommunity Regional Medical Center01-06-2023 Miscellaneous Notes* Telephone Encounter - Kristen Baker RN - 09/22/2022 11:48 AM EST Pt called and is notified of providers results and instructions. Pt voices understanding. Kristen Baker RN * Telephone Encounter - Jeanette Berrios APRN.CNP - 09/22/2022 11:23 AM EST Please let patient know her bone density testing was normal. For her age it is recommend to take 1200 mg of calcium and 2000 units of vitamin D. Stay active with weight bearing activities which include walking and light weight lifting. Jeanette Berrios APRN.CNP documented in this encounterCommunity Regional Medical Center01-04-2023 History of Present illness Narrative* Dayo Cardoso RT(R) - 09/20/2022 10:00 AM EST Radiology Service Progress Note PATIENT NAME: Bushra Rodrigez DATE OF SERVICE: September 20, 2022 [...] 20, 2022 9:58 AM documented in this encounterCommunity Regional Medical Center01-03-2023 Procedure note* Girish Lemos MD - 09/19/2022 9:48 AM EST After the risks and options of alternative treatments were reviewed, the lesion(s) located on [place] were treated with cryosurgery after prepping area with alcohol. A total of 3 lesion(s) were treated. Girish Lemos MD documented in this encounterCommunity Regional Medical Center01-03-2023 Instructions* Patient Instructions* Girish Lemos [...] instructed by your physician, you may take hcen-kpp-ekoziav pain medications as needed for discomfort. 5. [...] the office at . 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 Johnson Dysphagia Dr. Stiles Ectopic 1991 GERD (gastroesophageal reflux disease) History of prediabetes Hyperlipidemia Hypertension Hypothyroidism Obesity (BMI 30.0-34.9) Other pulmonary embolism without acute cor pulmonale (HCC) [facility] Requiring intubation Previous Surgical History PAST [...] Cancer Brother lung Stroke Maternal Grandmother or ID, patient unsure Coronary Artery Disease Maternal Grandfather No Known Problems Sister Patient Allergies ALLERGIES Allergen Reactions David Inhibitors Rash Codeine Vomiting, Other: See Comments Headache Remeron [Mirtazapin* Other: See Comments Fatigue Lspgiul-Fwn-Pla Red* Myalgia Merlin Unknown Zetia [Ezetimibe] Myalgia Current Medications Current [...] and 3 months after surgery. mv,jaci,iron,mn/folic acid/chol (COZQ-AKXU-OHAYL, PABA, ORAL) Take 1 tablet by mouth [...] 1-15 Girish Lemos MD documented in this encounterCommunity Regional Medical Center12-23-2022 Miscellaneous Notes* Telephone Encounter - Jeanette Berrios APRN.CNP - 09/08/2022 9:38 AM EST Medications resent to [facility]. Jeanette Berrios APRN.DIA * Telephone Encounter - Poonam Denise RN - 09/08/2022 9:26 AM EST Patient calling and states her 4 recent scripts for lotrimin, levothyroxine, losartan, and potassium chloride were sent to incorrect pharmacy on 08/22/22. Patient asking if scripts can be sent to [facility] instead. Thank you. documented in this encounterCommunity Regional Medical Center12-07-2022 Miscellaneous Notes* Telephone Encounter - Rosario Tejada [...] medications. Jeanette Berrios APRN.CNP documented in this encounterCommunity Regional Medical Center12-06-2022 Instructions* Patient Instructions* Jeanette Berrios APRN.CNP - [...] your usual activities immediately. 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 Johnson Dysphagia Dr. Stiles Ectopic 1991 GERD (gastroesophageal reflux disease) History of prediabetes Hyperlipidemia Hypertension Hypothyroidism Obesity (BMI 30.0-34.9) Other pulmonary embolism without acute cor pulmonale (HCC) [facility] Requiring intubation ALLERGIES David Inhibitors, Codeine, Remeron [Mirtazapine], Hcyurod-Xsg-Bxo Reductase Inhibitors, Merlin, and Zetia [Ezetimibe] MEDICATIONS Current Outpatient Medications [...] not taking: Reported on 08/22/2022) mv,jaci,iron,mn/folic acid/chol (NDRN-SSLK-XRCBE, PABA, ORAL) Take 1 tablet by mouth [...] Abs Lymph 1.00 - 4.00 k/uL 1.37 [place]% % 11.0 Abs [place] <0.87 k/uL 1.67 (H) Eosin% % 0.0 Abs Eosin <0.46 k/uL 0.00 Baso% % 0.0 Abs Baso <0.11 k/uL 0.00 [place]% % 2.0 Myelo% % 1.0 Left Shift [...] ICD10: N94.10 - recommend she follow-up with MANAGER MANUFACTURING 10. Abnormal vaginal bleeding in postmenopausal patient - ICD9: 627.1, ICD10: N95.0 - follow-up with MANAGER MANUFACTURING Jeanette Berrios APRN.PRIMING POWDER PREMIX BLENDER Prescription instructions reviewed with patient as applicable. [...] which included preparing to see the patient, hzhp-ro-evky patient care, completing clinical documentation, obtaining and/or reviewing separately obtained history, performing a medically appropriate examination, counseling and educating the pat ient/family/caregiver, and ordering medications, tests, or procedures. documented in this encounterCommunity [facility]11-[facility]-2022 Miscellaneous Notes* Telephone Encounter - Cady Patiño Pss - 08/04/2022 2:25 PM EST [...] two tablets daily Please review and advise. Cady Patiño Pss documented in this encounterCommunity [facility] Center11-09-2022 Miscellaneous Notes* Telephone Encounter - Rosie Mcintosh APRN.CNP - 07/26/2022 10:20 AM EST Patient says her symptoms are gone at this time. Patient was instructed if symptoms return that sheshould come back and have another urine sample done. documented in this encounterCommunity [facility] Medical Center11-07-2022 Instructions* Patient Instructions* Jamaica Malone APRN.CNP - 07/24/2022 5:50 PM EST Use mycolog cream as needed for irritation Will send cultures and call with results and treatment needed documented in this encounterCommunity Regional Medical Center11-07-2022 History of Present illness Narrative* Jamaica Malone APRN.CNP - 07/24/2022 5:37 PM EST Images from the original note were not included. Subjective The history is provided by the patient. No vice president of procurement was used. 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 Johnson Dysphagia Dr. Stiles Ectopic 1991 GERD (gastroesophageal reflux disease) History of prediabetes Hyperlipidemia Hypertension Hypothyroidism Obesity (BMI 30.0-34.9) Other pulmonary embolism without acute cor pulmonale (HCC) Pneumonia due to COVID-19 virus Requiring intubation I have confirmed and edited as necessary, the [facility] Review of Systems Constitutional: Negative for chills, fever and malaise/fatigue. Gastrointestinal: Negative for abdominal pain. Genitourinary: Positive for hematuria. Negative for dysuria, flank pain, frequency and urgency. Objective Physical Exam Vitals and nursing note reviewed. Exam conducted with a fisheries manager present. Constitutional: Appearance: Normal appearance. HENT: Mouth/Throat: [...] indetail warranting prompt ER evaluation. Jamaica Malone APRN.DIA documented in this encounterCommunity [facility] Medical Center11-07-2022 Miscellaneous Notes* Telephone Encounter - Jeanette Berrios APRN.CNP - 07/24/2022 4:27 PM EST Reviewed. Jeanette Berrios APRN.DIA * Telephone Encounter - Phylicia Heredia RN - 07/24/2022 4:18 PM EST Patient calls for urinary symptoms(urgency, painful urination, and blood in urine). Nurse triage completed. Protocol recommends see provider within 24 hours. Appointment offered. Patient decided to go to [facility] for evaluation and treatment. Reason for Disposition [...] discharge or genital sores. Protocols used: Urinary Rbmgxgin-PVNWN-GG, Urination Pain - Antnmq-RFXQZ-RK documented in this encounterCommunity Regional Medical Center07-07-2022 History of Present illness Narrative* Girish Lemos MD - 03/23/2022 10:53 AM EDT Chief Complaint Patient presents with: URI: x 1 week HPI Bushra Rodrigez is a 66 year old female who presents here today for Above Complaints. Patient states that since she was in [place] about 1 week ago when she developed [...] III (moderate) (HCC) Colon polyp tubular adenoma [address] 07/16 to 08/17 DDD (degenerative disc [...] Cancer Brother lung Stroke Maternal Grandmother or ID, patient unsure Coronary Artery Disease Maternal Grandfather No Known Problems Sister Patient Allergies ALLERGIES Allergen Reactions David Inhibitors Rash Codeine Vomiting, Other: See Comments Headache Remeron [Mirtazapin* Other: See Comments Fatigue Yxhjhcl-Gbk-Ylx Red* Myalgia Merlin Unknown Zetia [Ezetimibe] Myalgia Current Medications Current [...] capsules by mouth once daily. mv,jaci,iron,mn/folic acid/chol (EQLF-WPVR-VTJOJ, PABA, ORAL) Take 1 tablet by mouth [...] SPRAY,SUSPENSION Girish Lemos MD documented in this encounterCommunity Regional Medical Center07-07-2022 Miscellaneous Notes* Telephone Encounter - Girish Lemos MD - 03/23/2022 9:12 AM EDT Agree. * Telephone Encounter - Kristen Baker RN - 03/23/2022 9:01 AM EDT [...] was recently on prolonged travel down to [place]. 10. OTHER SYMPTOMS: Pt reports runny nose, slight fever, nausea, diarrhea, eyes watering/red/blood shot/with pus, fatigue, weak, O2 93% on 1.5 L, slight headache. Pt denies wheezing, chest pain. 11. : Postmenopausal. 12. TRAVEL: Just came back from [place] on Sunday, states no one tested positive down there. Protocols used: COUGH - ACUTE JZLSHSGGIB-CIWMC-RB documented in this encounterCommunity Regional Medical Center06-08-2022 Miscellaneous Notes* Telephone Encounter - Nallely Ambriz LPN - 02/22/2022 11:33 AM EDT Spoke with pt and information listed below given. Pt verbalizes understanding. Nallely Ambriz LPN * Telephone Encounter - Jeanette [...] $10 each time she gets it from [employer] scripts. Patient aware RX escripted to mail away pharmacy. No need to notify patient. Bailee Zacarias Pss documented in this encounterCommunity [facility] Medical Center03-11-2022 History of Present illness Narrative* Antonia Simms RT(R) - 11/25/2021 10:50 AM EST Radiology Service Progress Note PATIENT NAME: Bushra Rodrigez DATE OF SERVICE: November 25, 2021 [...] 25, 2021 11:18 AM documented in this encounterCommunity Regional Medical CenterConsult note Author Huan Billy [facility] Note Date/Time February 16, 2025 8:12a [facility] Medical Records Department [address] [place] [id number] Pre-Anesthesia Evaluation 02/16/25 0809 MR#: [id number] Acct: [id number] Name: BUSHRA RODRIGEZ Rep #:[id number] : 1955 69 From: Huan Billy MD PCP: Dr. Fabricio Lemos MD Status :REG [facility] Y Race: C Location: [place] [address] ASA Classification* ASA Classification ASA Classification: 3 [...] 01/10/25 TSH 3.490 uIU/mL (0.300-4.200) 02/03/25 08:05 05/ COAG PT 14.2 SECONDS (11.7-14.9) 11/12/24 10:03 Pre-Assessment Diagnosis/Proposed Procedure Planned Operative Procedure(s): LEFT LUMBAR TRANSFORAMINAL EPIDURAL L4-5 S1 UNDER FLUOROSCOPY Anesthesia History Anesthesia History - manager title: Anesthesia History - manager title Hx Hospitalization Yes: 12/2024 DUE TO REACTION [...] take am of surgery PONV PONV - manager title: PONV - manager title Female Yes 02/11/25 15:02 HX of Motion [...] 02/16/25 07:38 Respiratory Assessment Respiratory Assessment - manager title: Respiratory Tract Infection Hx - manager title Hx Respiratory Tract Infection No 02/11/25 15:02 STOP Sleep Apnea STOP Sleep Apnea - manager title: STOP Sleep Apnea - manager title Hx Hypertension Yes: CONTROLLED WITH MED 02/11/25 [...] Tobacco Use History Tobacco Use History - manager title: Tobacco Use History - manager title Tobacco Use Smoking Status Former smoker 02/11/25 15:02 Hx Tobacco Use No 02/11/25 15:02 Years Smoking Packs Smoked per Day Smoking Cessation Date was Yes - quit smoking within 15 02/11/25 15:02 within the last 15 years years Hx Smoking Cessation Date 09/17/15 02/11/25 15:02 Hx Smoking Cessation No 02/11/25 15:02 Counseling Hematologic Medial History Hematologic Hx - manager title: Hematologic Medical Hx - psych coordinator Hx of Blood Transfusion No 02/11/25 15:02 [...] confused, unrespo /Reproduction History /Reproductive History - manager title: /Reproductive Hx- manager title Hx Now No 02/11/25 15:02 Gestational Age [...] Type Severity Reaction Status Date / Time DAVID Inhibitors Allergy Rash Verified 02/16/25 07:36 codeine Allergy Vomiting Verified 02/16/25 07:36 walnut Allergy Food Verified 02/16/25 07:36 Allergy prednisone AdvReac Other Verified 02/16/25 07:36 Jfzpxrh-KPS-DcO Reductase AdvReac cramps Verified 02/16/25 07:36 Inhibitor (Fcofxrr-Fzw-Ece Reductase Inhibitor) Family History Mother Cancer Hx [...] MD Cosigner Signature: Date CC: ~ Signed [facility] Work Phone: Consult note Author Daniel Sevilla [facility] Note Date/Time February 16, 2025 8:55a [facility] Medical Records Department [address] [place], [place] [address] [address] Anesthesia Postop Eval I 02/16/25853 MR#: [id number] Acct: [id number] Name: ELIABUSHRA M Rep #:[id number] : 1955 69 From: Daniel Sevilla PCP: Dr. Fabricio Lemos MD Status :REG [facility] Y Race: C Location: [place] [address] Anesthesia: Postop Eval I Current Vital Signs [...] Daniel Mendoza Signature: Date CC: ~ Signed [facility] Work Phone: Consult note Author Huan Billy [facility] Note Date/Time February 16, 2025 9:34a m [facility] Medical Records Department [address] [place] [address] Anesthesia Postop Eval II 02/16/25900 MR#: [id number] Acct: [id number] Name: BUSHRA RODRIGEZ Rep #:[id number] : 1955 69 From: Huan Billy MD PCP: Dr. Fabricio Lemos MD Status :REG [facility] Y Race: C Location: [address] Anesthesia Postop Eval I Sum Postop Eval [...] No Vomiting: No Complications Anesthesia Complication: No 02/16/25900 <Electronically signed by Huan Billy MD> Date _ Huan Billy MD Cosigner Signature: Date CC: ~ Signed [facility] Work Phone: Discharjt summary Author Jassi Borden [facility] Note Date/Time January 10, 2025 2:2 8pm [facility] Medical Records Department [address] [place] [address] Instructions for Home/Discharge Instructions 01/10/25 1425 MR#: [id number] Acct: [id number] Name: BUSHRA RODRIGEZ Rep #:[id number] : 1955 69 From: Jassi Schneider PCP: Dr. Fbaricio Lemos MD Status :ADM [facility] Discharge Instructions [...] MD; Dr. Estrella Cabezas MD ~ Signed [facility] Work Phone: Discharge summary Author Jassi Borden [facility] Note Date/Time January 10, 2025 2:3 9pm [facility] Medical Records Department [address] [place] [address] Discharge Summary 01/10/251427 MR#: [id number] Acct: [id number] Name: BUSHRA RODRIGEZ Rep #:[id number] : 1955 69 From: Jassi Schneider PCP: Dr. Fabricio Lemos MD Status :ADM [facility] Location: [place] [address] Providers Date of Admission: 01/09/25 Date of [...] 01/10/25 14:09 RMA (Rec: 01/10/25 14:09 RMA [id number]) Nutrition Malnutrition Evidence of Yes Malnutrition Exists [...] 93.2 H, Lymph % (Auto) 4.7 L, [place] % (Auto) 0.2, Eos % (Auto) 0.0, [...] Metamyelocytes % 2 H, Diff Path Review January, Platelet Estimate A, Sodium 142,Potassium 3.9, Chloride [...] relate to congestion and edema. Reading Location: [facility] Echocardiogram 01/09/25 20:22 Interpretation Summary The LV [...] Diagnoses (Choose all that apply): CHF CHF DAVID/ARB ordered at discharge?: Yes Documented LVEF (%): [...] Qty: 30 2RF Referrals / Follow Up: Fabircio Lemos MD [Primary Care Provider] - Sherice Fernandez MD [Med Staff - Active Staff] - Within 1 Month Disposition Disposition (needs filled in before D/C Order can be placed): Home, Self Care Charges/Coding Visit Charges Inpatient E&M: 94222 Disch Hosp >30min 01/10/25 1439 <Electronically signed by Jassi Borden MD> Cosigner Signature (if applicable): CC: Dr. Fabricio Lemos MD; Dr. Jassi Borden MD~ Signed [facility] Work Phone: evaluation note* Diagnosis Onset Date Resolution Status Respiratory insufficiency ac natalie Smoking greater than 40 pack years acute [facility] Work Phone: evaluation note* Diagnosis Suspected COVID-19 virus infection- Primary Non-seasonal allergic rhinitis, unspecified trigger documented in this encounter [facility] note* Diagnosis Gross hematuria- Primary Acute vaginitis Vaginitis and vulvovaginitis, unspecified Vulvar irritation Other specified noninflammatory disorder of vulva and perineum [facility]* Diagnosis Acquired hypothyroidism Unspecified hypothyroidism Essential hypertension Unspecified essential hypertension [facility]* Diagnosis Encounter for screening mammogram for breast cancer documented in this encounter [facility] note* Diagnosis Essential hypertension- Primary [...] in postmenopausal patient [facility]* Diagnosis Ringworm of body Dermatophytosis of the body Acquired hypothyroidism Unspecified hypothyroidism Essential hypertension Unspecified essential hypertension [facility]* Diagnosis Onset Date Resolution Status Influenza acute [facility] Work Phone: evaluation note* Diagnosis Skin tag- Primary Unspecified hypertrophic and atrophic condition of skin S/P cryotherapy of skin lesion [facility] Diagnosis Onset Date Resolution Status Bronchiectasis acute Smoking greater than 40 pack years acute [facility] Work Phone: Evaluation note* Diagnosis Hammertoe of left foot- Primary Pain in toe of left foot Pain in limb Other acute pulmonary embolism, unspecified whether acute cor pulmonale present (HCC) [facility]* Diagnosis Essential hypertension- Primary Unspecified essential hypertension Prediabetes Other abnormal glucose Acquired hypothyroidism Unspecified hypothyroidism Hyperlipidemia, unspecified hyperlipidemia type Bradycardia Other specified cardiac dysrhythmias First degree AV block First degree atrioventricular block Stage 3 chronic kidney disease, unspecified whether stage 3a or 3b CKD (HCC) [facility] Diagnosis Primary hypertension- Primary Unspecified essential hypertension Bradycardia Other specified cardiac dysrhythmias Skin eruption Rash and other nonspecific skin eruption [facility]* Diagnosis Acquired hypothyroidism Unspecified hypothyroidism Essential hypertension Unspecified essential hypertension [facility]* Diagnosis Screening for colon cancer- Primary Special screening for malignant neoplasms, colon documented [facility]* Diagnosis Onset Date Resolution Status Bronchiectasis acute COVID-19 acute Pulmonary fibrosis acute Pulmonary hypertension acute Smoking greater than 40 pack years acute [facility] Work Phone: Evaluation note* Diagnosis Essential hypertension- Primary Unspecified essential hypertension Encounter for immunization Need for other specified prophylactic vaccination against single bacterial disease Prediabetes Other abnormal glucose Acquired hypothyroidism Unspecified hypothyroidism Stage 3 chronic kidney disease, unspecified whether stage 3a or 3b CKD (HCC) First degree AV block First degree atrioventricular block [facility]* Diagnosis Pain Generalized pain [facility] Diagnosis Screening for osteoporosis Special screening for osteoporosis [facility]* Diagnosis Encounter for screening mammogram for breast cancer [facility] Diagnosis Acquired hypothyroidism Unspecified hypothyroidism Essential hypertension Unspecified essential hypertension [facility]* Diagnosis Essential hypertension- Primary Unspecified essential hypertension Non-seasonal allergic rhinitis, unspecified trigger Acquired hypothyroidism Unspecified hypothyroidism Hyperlipidemia, unspecified hyperlipidemia type Stage 3 chronic kidney disease, unspecified whether stage 3a or 3b CKD (HCC) Pulmonary hypertension (HCC) Other chronic pulmonary heart diseases Muscle cramps Cramp of limb documented in this encounter [facility] noteNo assessment information availableWKettering [facility] Work Phone[facility]* Diagnosis Essential hypertension Unspecified essential hypertension documented in this encounter [facility] note* Diagnosis Fever, unspecified fever cause Diarrhea, unspecified type Nausea Nausea alone Cough documented in this encounter [facility] note* Diagnosis Pneumonia due to infectious organism, unspecified laterality, unspecified part of lung documented in this encounter [facility] note* Diagnosis Encounter for screening mammogram for breast cancer documented in this encounter [facility] note* Diagnosis Acquired hypothyroidism Unspecified hypothyroidism documented in this encounter [facility] note* Diagnosis Essential hypertension- Primary [...] hypothyroidism Unspecified hypothyroidism documented in this encounter [facility] note* Diagnosis Essential hypertension Unspecified essential hypertension documented in this encounter [facility] note* Diagnosis Primary hypertension- Primary Unspecified essential hypertension documented in this encounter [facility] note* Diagnosis Generalized abdominal pain- Primary Abdominal pain, generalized Diarrhea, unspecified type Nausea Nausea alone Generalized abdominal pain Abdominal pain, generalized Diarrhea, unspecified type Nausea Nausea alone documented in this encounter [facility] note* Diagnosis Generalized abdominal pain Abdominal pain, generalized Diarrhea, unspecified type Nausea Nausea alone documented in this encounter [facility] note* Diagnosis Liver masses- Primary Unspecified disorder of liver RUQ abdominal pain Abdominal pain, right upper quadrant Nausea and vomiting, unspecified vomiting type Diarrhea, unspecified type documented in this encounter [facility] note* Diagnosis Abnormal MRI, liver- Primary Nonspecific (abnormal) findings on radiological and other examination of biliary tract documented in this encounter [facility] note* Diagnosis Liver masses Unspecified disorder of liver documented in this encounter [facility] note* Diagnosis Liver masses Unspecified disorder of liver documented in this encounter [facility] note* Diagnosis Generalized abdominal pain- [...] rectum and anus documented in this encounter [facility] note* Diagnosis Chest pain, unspecified [...] Loss of weight documented in this encounter [facility] note* Diagnosis Viral URI with cough- Primary Acute upper respiratory infections of unspecified site Immunocompromised state (HCC) Unspecified immunity deficiency Viral URI with cough Acute upper respiratory infections of unspecified site documented in this encounter [facility] note* Diagnosis Viral URI with cough Acute upper respiratory infections of unspecified site documented in this encounter [facility] note* Diagnosis Acquired hypothyroidism Unspecified hypothyroidism documented in this encounter [facility] note* Diagnosis Essential hypertension Unspecified essential hypertension [facility] Additional Instructions You were given IV fluids for dehydration. Continue taking your home nausea and pain medications. Follow-up with the oncologist at your appointment tomorrow.[facility] Work Phone: Hospital Discharge instructionsAdditional Instructions Recommend you follow-up with your primary care physician to order outpatient MRI of lumbar spine. Return to the ER for worsening pain, weakness in extremities, loss of bowel or bladder function, or condition worsen anyway.[facility] Work Phone: Reason for referral (narrative)* Diagnostic Procedure Only (Routine) - Pending Review Specialty Diagnoses / Procedures Referred By Zaida ayers Referred To Contact [facility] Diagnoses Encounter for screening mammogram for breast cancer Procedures LNY SCREENING SCREENING MAMMOGRAPHY BI 2-VIEW BREAST INC CAD Girish Lemos MD [address] [place] [address] [facility] [address] [place] [address] Referral ID Status Reason Start Date Expiration Date Visits Requested Visits Authorized [id number] Pending Review Auto-Generat ed Referral 08/17/2022 09/16/2023 1 1 [facility] for referral (narrative)* Outpatient Procedure (Routine) - Closed Specialty Diagnoses / Procedures Referred By Contac t Referred To Contact [facility] Diagnoses Bradycardia Procedures ECG COMPLETE ECG ROUTINE ECG W/LEAST 12 LDS W/I&R PodlogarJeanette APRN.PRIMING POWDER PREMIX BLENDER [address] [place] [address] [facility] [place] [address] [place] [address] Referral ID Status Reason Start Date Expiration Date V isits Requested Visits Authorized [id number] Closed Auto-Generate d Referral 02/20/2023 02/20/2024 1 1 * Consult, Test, Treat (Routine) - Authorized Specialty Diagnoses / Procedures Referred By Contac t Referred To Contact Cardiology Diagnoses Bradycardia First degree AV block Procedures CONSULT TO CARDIOLOGY OFFICE/OUTPATIENT [facility] 60-74 MINUTES PodlogJeanette gibbons APRN.PRIMING POWDER PREMIX BLENDER [address] [place] [address] Referral ID Status Reason Start Date Expiration Date Visits Requested Visits Authorized [id number] Authorized PCP Requested Referral 02/20/2023 02/20/2024 1 1 [facility] for referral (narrative)* Diagnostic Procedure Only (Routine) - Closed Specialty Diagnoses / Procedures Referred By Contac t Referred To Contact [facility] Diagnoses Pain Procedures XR FOOT GENERAL 3V AP/LAT/OBL LEFT RADEX FOOT COMPLETE MINIMUM [address] [place] [address] [place] [address] Referral ID Status Reason Start Date Expiration Date V isits Requested Visits Authorized [id number] Closed Auto-Generate d Referral 01/04/2023 02/03/2024 1 1 [facility] for referral (narrative)* Diagnostic Procedure Only (Routine) - Pending Review Specialty Diagnoses / Procedures Referred By Contac t Referred To Contact [facility] Diagnoses Encounter for screening mammogram for breast cancer Procedures LYN SCREENING SCREENING MAMMOGRAPHY BI 2-VIEW BREAST INC Girish Espinal MD [address] [place] [address] [facility] [address] [place] [address] Referral ID Status Reason Start Date Expiration Date Visits Requested Visits Authorized [id number] Pending Review Auto-Generat ed Referral 07/25/2023 08/23/2024 1 1 [facility] for referral (narrative)* Diagnostic Procedure Only (Routine) - New Request Specialty Diagnoses / Procedures Referred By Contac t Referred To Contact [facility] Diagnoses Encounter for screening mammogram for breast cancer Procedures LYN SCREENING W ANT SCREENING DIGITAL BREAST TOMOSYNTHESIS BI SCREENING MAMMOGRAPHY BI 2-VIEW BREAST INC Girish Espinal MD [address] [place] [id number] [facility] [address] [place] [address] Referral ID Status Reason Start Date Expiration Date Visits Requested Visits Authorized [id number] New Request Auto-Generat ed Referral 06/25/2024 07/25/2025 1 1 [facility] for referral (narrative)No reason for referral information [facility]WK[facility] Phone: Reason for visit Narrative* Diagnostic Procedure Only (Routine) - Closed Specialty Diagnoses / Procedures Referred By Contac t Referred To Contact XR IMAGING Diagnoses Pain Procedures XR FOOT GENERAL 3V AP/LAT/OBL LEFT RADEX FOOT COMPLETE MINIMUM 3 VIEWS Talat Merida [address] [place] [address] [place] [address] Referral ID Status Reason Start Date Expiration Date V isits Requested Visits Authorized [id number] Closed Auto-Generate d Referral 01/04/2023 02/03/2024 1 1 [facility] Summary Purpose Family History Relationship Condition Age at Onset Recorded Date/T chris mother Malignant neoplasm Unknown father Malignant neoplasm Unknown Advance Directives Advance Directive Response Recorded Date/ Time Advance Directives No October 11:59pm Living Will No November 17, 2021 12:21pm Power of Blood Coordinator No November 17 12:21pm Advance Directive Response Recorded Date/ Time Advance Directives No October 10:59pm Living Will No September 13 6:53am Power of Blood Coordinator No September 13, 2022 6:53am Advance Directive Response Recorded Date/ Time Advance Directives No October 11:59pm Living Will No September 13 7:53am Power of Blood Coordinator No September 13, 2022 7:53am Advance Directive Response Recorded Date/ Time Living Will No May 28, 2024 11:58am Power of Blood Coordinator No May 11:58am Living Will No November 12 2:53pm Power of Blood Coordinator No November 12, 2024 2:53pm Living Will No November 23, 2024 4:39pm Power of Blood Coordinator No November 23 4:39pm Advance Directives No October 11:59pm Advance Directive Response Recorded Date/ Time Living Will No May 28, 2024 11:58am Do you have a Healthcare Power of Blood Coordinator? No May 28, 2024 11:58am Advance Directives No December 09 11:48am Living Will No November 12 2:53pm Do you have a Healthcare Power of Blood Coordinator? No November 12, 2024 2:53pm Living Will No November 28, 2024 8:45am Do you have a Healthcare Power of Blood Coordinator? No November 28, 2024 8:45am Living Will No November 23, 2024 4:39pm Do you have a Healthcare Power of Blood Coordinator? No November 23, 2024 4:39pm Advance Directive Response Recorded Date/ Time Living Will No May 28, 2024 11:58am Do you have a Healthcare Pow er of Blood Coordinator? No May 28, 2024 11:58am Advance Directives No December 09 11:48am Living Will No November 12 2:53pm Do you have a Healthcare Pow er of Blood Coordinator? No November 12, 2024 2:53pm Living Will No November 28, 2024 8:45am Do you have a Healthcare Pow er of Blood Coordinator? No November 28, 2024 8:45am Living Will No November 23, 2024 4:39pm Do you have a Healthcare Pow er of Blood Coordinator? No November 23, 2024 4:39pm Living Will Yes December 11, 2024 8:45am Do you have a Healthcare Pow er of Blood Coordinator? Yes December 11, 2024 8:45am Name of Medical Power of Blood Coordinator SON AND DAUGHT ER December 11, 2024 8:45am Advance Directive Response Recorded Date/ Time Living Will No May 28, 2024 11:58am Do you have a Healthcare Pow er of Blood Coordinator? No May 28, 2024 11:58am Living Will No November 12 2:53pm Do you have a Healthcare Pow er of Blood Coordinator? No November 12, 2024 2:53pm Living Will No January 09, 2025 2:14pm Do you have a Healthcare Pow er of Blood Coordinator? No January 09, 2025 2:14pm Advance Directives No January 09 2:14pm Living Will No November 23, 2024 4:39pm Do you have a Healthcare Pow er of Blood Coordinator? No November 23, 2024 4:39pm Living Will Yes December 11, 2024 8:45am Do you have a Healthcare Pow er of Blood Coordinator? Yes December 11, 2024 8:45am Name of Medical Power of Blood Coordinator SON AND DAUGHT ER December 11, 2024 8:45am Do you have a Healthcare Pow er of Blood Coordinator? Yes January 09, 2025 8:02pm Name of Medical Power of Blood Coordinator Goyo laguerre January 09, 2025 4:01pm Advance Directive Response Recorded Date/ Time Living Will No May 28, 2024 11:58am Do you have a Healthcare Pow er of Blood Coordinator? No May 28, 2024 11:58am Living Will No November 12 025 2:53pm Do you have a Healthcare Pow er of Blood Coordinator? No November 12, 2024 2:53pm Living Will No February 06, 2025 1 2:18pm Do you have a Healthcare Pow er of Blood Coordinator? No February 06, 2025 12:18pm Advance Directives No February 06 12:18pm Do you have a Healthcare Pow er of Blood Coordinator? Yes February 11, 2025 3:02pm Living Will No November 23, 2024 4:39pm Do you have a Healthcare Pow er of Blood Coordinator? No November 23, 2024 4:39pm Living Will Yes December 11, 2024 8:45am Do you have a Healthcare Pow er of Blood Coordinator? Yes December 11, 2024 8:45am Name of Medical Power of Blood Coordinator SON AND DAUGHT ER December 11, 2024 8:45am Do you have a Healthcare Pow er of Blood Coordinator? Yes January 09, 2025 8:02pm Name of Medical Power of Blood Coordinator Goyo Malloy shade January 09, 2025 4:01pm Advance Directive Response Recorded Date/ Time Living Will No May 28, 2024 11:58am Do you have a Healthcare Pow er of Blood Coordinator? No May 28, 2024 11:58am Living Will No November 12 025 2:53pm Do you have a Healthcare Pow er of Blood Coordinator? No November 12, 2024 2:53pm Living Will No February 24, 2025 8:19am Do you have a Healthcare Pow er of Blood Coordinator? No February 24, 2025 8:19am Advance Directives No February 24 8:19am Do you have a Healthcare Pow er of Blood Coordinator? Yes February 11, 2025 3:02pm Living Will No November 23, 2024 4:39pm Do you have a Healthcare Pow er of Blood Coordinator? No November 23, 2024 4:39pm Living Will Yes December 11, 2024 8:45am Do you have a Healthcare Pow er of Blood Coordinator? Yes December 11, 2024 8:45am Name of Medical Power of Blood Coordinator SON AND DAUGHT ER December 11, 2024 8:45am Do you have a Healthcare Pow er of Blood Coordinator? Yes January 09, 2025 8:02pm Name of Medical Power of Blood Coordinator Goyo laguerre January 09, 2025 4:01pm Advance Directive Response Recorded Date/ Time Living Will No February 27, 2025 2:42pm Do you have a Healthcare Pow er of Blood Coordinator? No February 27, 2025 2:42pm Advance Directives No February 27 2:42pm Do you have a Healthcare Pow er of Blood Coordinator? Yes February 11, 2025 3:02pm Living Will No November 23, 2024 4:39pm Do you have a Healthcare Pow er of Blood Coordinator? No November 23, 2024 4:39pm Living Will Yes December 11, 2024 8:45am Do you have a Healthcare Pow er of Blood Coordinator? Yes December 11, 2024 8:45am Name of Medical Power of Blood Coordinator SON AND DAUGHT ER December 11, 2024 8:45am Do you have a Healthcare Pow er of Blood Coordinator? Yes January 09, 2025 8:02pm Name of Medical Power of Blood Coordinator Goyo laguerre January 09, 2025 4:01pm Advance Directive Response Recorded Date/ Time Living Will No March 19, 2025 2 :43pm Do you have a Healthcare Pow er of Blood Coordinator? No March 19, 2025 2:43pm Advance Directives No March 19 2:43pm Do you have a Healthcare Pow er of Blood Coordinator? Yes February 11, 2025 3:02pm Do you have a Healthcare Pow er of Blood Coordinator? Yes April 05, 2025 8:09pm Living Will Yes December 11, 2024 8:45am Do you have a Healthcare Pow er of Blood Coordinator? Yes December 11, 2024 8:45am Name of Medical Power of Blood Coordinator SON AND DAUGHT ER December 11, 2024 8:45am Do you have a Healthcare Pow er of Blood Coordinator? Yes January 09, 2025 8:02pm Name of Medical Power of Blood Coordinator Goyo laguerre January 09, 2025 4:01pm Chief [...] 11:20am Smoking greater than 40 pack years [place] dacia 2024 11:20am Elevated LFTs November 12, [...] LUNG CANCER IV CONTRAST ONLY Feb 6:55am Chief Complaint Admit Date 3 M [...] 8pm Regional lymph node metastasis present M 2024 2:38pm Jaundice November 24, 2024 2:3 8pm Bilateral lower extremity edema December 022024 12:19pm Small cell lung cancer December 02, 2024 12:19pm Metastasis to bone December 02, 2024 12: 19pm Metastasis to liver December 02, 2024 12: 19pm Regional lymph node metastasis present M [facility] 2024 12:19pm Jaundice December 02, 2024 12: 19pm Bilateral lower extremity edema December 092024 9:51am Small cell lung cancer December 09, 2024 9:51am Metastasis to bone December 09, 2024 9:5 1am Metastasis to liver December 09, 2024 9:5 1am Regional lymph node metastasis present M [facility] 2024 9:51am Encounter for insertion of venous access port December 10, 2024 12:33pm 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 December 10, 2024 12:33pm Bilateral lower extremity edema December 7:48am Encounter for chemotherapy management Ap 2024 7:48am Internal hemorrhoids December 16, 2024 7:4 8am Small cell lung cancer December 16, 2024 7 :48am Metastasis to bone Yudi 1st, 2025 7:48 am Metastasis to liver December 16, [...] am Regional lymph node metastasis present J [facility] 2024 7:52am Chief Complaint Admit Date [...] 8pm Regional lymph node metastasis present M [facility] 2024 2:38pm Jaundice November 24, 2024 2:3 8pm Bilateral lower extremity edema December 022024 12:19pm Small cell lung cancer December 02, 2024 12:19pm Metastasis to bone December 02, 2024 12: 19pm Metastasis to liver December 02, 2024 12: 19pm Regional lymph node metastasis present M [facility] 2024 12:19pm Jaundice December 02, 2024 12: 19pm Bilateral lower extremity edema December 092024 9:51am Small cell lung cancer December 09, 2024 9:51am Metastasis to bone December 09, 2024 9:5 1am Metastasis to liver December 09, 2024 9:5 1am Regional lymph node metastasis present M [facility] 2024 9:51am Encounter for insertion of venous [...] node metastasis present J une 2024 7:48am Chief Complaint Admit Date TOX CHECK - LABS December 09, 2024 [...] LABS - CARBO/ETOP/ATEZO February 7:48am LABS March 19, 2025 3:00p m L Hip April 05, 2025 7:37 pm Reason for Visit Admit Date Bilateral lower extremity edema December 092024 9:51am Small cell lung cancer December 09, 2024 9:51am Metastasis to bone December 09, 2024 9:5 1am Metastasis to liver December 09, 2024 9:5 1am Regional lymph node metastasis present M [facility] 2024 9:51am Encounter for insertion of venous [...] node metastasis present J une 2024 7:48am Chief Complaint Admit Date TOX CHECK - LABS December 09, 2024 [...] WKS - LABS - CARBO/ETOP/ATEZO February 7:48am L Hip April 05, 2025 7:37 pm LABS April 06, 2025 9:30 am 3 WKS - LABS - ATEZO April 06, 2025 9:3 4am Reason for Visit Admit Date Bilateral lower extremity edema December 092024 9:51am Small cell lung cancer December 09, 2024 9:51am Metastasis to bone December 09, 2024 9:5 1am Metastasis to liver December 09, 2024 9:5 1am Regional lymph node metastasis present M [facility] 2024 9:51am Encounter for insertion of venous [...] node metastasis present J une 2024 7:48am Anemia April 06, 2025 9:34 am 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 April 06, 2025 9:34am Left leg weakness April 06, 2025 9:34 am Metastasis to bone April 06, 2025 9:34 am Metastasis to liver April 06, 2025 9:34 am Regional lymph node metastasis present J susy 2024 9:34am Reason for Referral Specialty Diagnoses / Procedures Referred By Zaida ayers Referred To Contact Gastroenterology Diagnoses Screening for colon cancer Procedures CONSULT TO GASTROENTEROLOGY OFFICE/OUTPATIENT [facility] MDM 60-74 MINUTES Girish Lemos MD [address] [place] [address] Referral ID Status Reason Start Date Expiration Date Visits Requested Visits Authorized [id number] Authorized PCP Requested Referral 05/07/2023 05/06/2024 1 1 Specialty Diagnoses / Procedures Referred By Contac t Referred To Contact CT IMAGING Diagnoses Generalized abdominal pain Diarrhea, unspecified type Nausea Procedures CT ABD/PEL W IVCON CT ABD & PELVIS W/CONTRAST Oleg Fields, ALEXA.[employer] BL[employer]ER [address] [place] [address] [place] [address] Referral ID Status Reason Start Date Expiration Date V isits Requested Visits Authorized [id number] Closed Auto-Generate d Referral 10/16/2024 11/15/2025 1 1 Specialty Diagnoses / Procedures Referred By Contac t Referred To Contact Oncology Diagnoses Liver masses Procedures CONSULT TO ONCOLOGY OFFICE/OUTPATIENT [facility] [place] 60 MINUTES Girish Lemos MD [address] [place] [id number] Referral ID Status Reason Start Date Expiration Date Visits Requested Visits Authorized [id number] Authorized PCP Requested Referral 10/17/2024 10/17/2025 1 1 Specialty Diagnoses / Procedures Referred By Contac t Referred To Contact Diagnoses Nausea and vomiting, unspecified vomiting type Girish Lemos MD [address] [place] [id number] Referral ID Status Reason Start Date Expiration Date Visits Re quested Visits Authorized [id number] Closed 1 1 Specialty Diagnoses / Procedures Referred By Contac t Referred To Contact CT IMAGING Diagnoses Liver masses Procedures CT CHEST W IVCON DIAGNOSTIC COMPUTED TOMOGRAPHY THORAX W/CONTRAST Girish Lemos MD [address] [place] [id number] [place] [address] Referral ID Status Reason Start Date Expiration Date Visits Requested Visits Authorized [id number] Authorized Auto-Generat ed Referral 10/17/2024 11/16/2025 1 1 Specialty Diagnoses / Procedures Referred By Contac t Referred To Contact Diagnoses Abnormal MRI, liver Procedures CONSULT TO HEPATOLOGY OFFICE/OUTPATIENT [facility] [facility] 60 MINUTES Oleg Fields APRN.[employer] BLENDER [address] [place] [id number] Referral ID Status Reason Start Date Expiration Date Visits Requested Visits Authorized [id number] Authorized PCP Requested Referral 10/16/2024 10/16/2025 1 1 Additional Source Comments INFORMATION SOURCE (unrecogn ized section and content) DATE CREATED AUTHOR 09/10/2020 [facility] DATE CREATED AUTHOR AUTHOR'S ORGANIZ ATION 06/14/2024 [facility] DATE CREATED AUTHOR AUTHOR'S ORGANIZ ATION 01/31/2025 [facility] DATE CREATED AUTHOR AUTHOR'S ORGANIZ ATION 03/22/2025 [facility] Goals (unrecognized section and content) Goals [...] or prosecute any alcohol or drug abuse patient.[facility] Center[facility] the event this information is protected by the Federal Confidentiality of Alcohol and Drug Abuse Patient Records regulations: The Federal rules restrict any use of the information to criminally investigate or prosecute any alcohol or drug abuse patient.[facility] CenterIn the event this information is protected by the Federal Confidentiality of Alcohol and Drug Abuse Patient Records regulations: The Federal rules restrict any use of the information to criminally investigate or prosecute any alcohol or drug abuse patient.[facility] CenterIn the event this information is protected by the Federal Confidentiality of Alcohol and Drug Abuse Patient Records regulations: The Federal rules restrict any use of the information to criminally investigate or prosecute any alcohol or drug abuse patient.[facility] CenterIn the event this information is protected by the Federal Confidentiality of Alcohol and Drug Abuse Patient Records regulations: The Federal rules restrict any use of the information to criminally investigate or prosecute any alcohol or drug abuse patient.[facility] CenterIn the event this information is protected by the Federal Confidentiality of Alcohol and Drug Abuse Patient Records regulations: The Federal rules restrict any use of the information to criminally investigate or prosecute any alcohol or drug abuse patient.[facility] CenterIn the event this information is protected by the Federal Confidentiality of Alcohol and Drug Abuse Patient Records regulations: The Federal rules restrict any use of the information to criminally investigate or prosecute any alcohol or drug abuse patient.[facility] CenterIn the event this information is protected by the Federal Confidentiality of Alcohol and Drug Abuse Patient Records regulations: The Federal rules restrict any use of the information to criminally investigate or prosecute any alcohol or drug abuse patient.[facility] CenterIn the event this information is protected by the Federal Confidentiality of Alcohol and Drug Abuse Patient Records regulations: The Federal rules restrict any use of the information to criminally investigate or prosecute any alcohol or drug abuse patient.[facility] CenterIn the event this information is protected by the Federal Confidentiality of Alcohol and Drug Abuse Patient Records regulations: The Federal rules restrict any use of the information to criminally investigate or prosecute any alcohol or drug abuse patient.[facility] CenterIn the event this information is protected by the Federal Confidentiality of Alcohol and Drug Abuse Patient Records regulations: The Federal rules restrict any use of the information to criminally investigate or prosecute any alcohol or drug abuse patient.[facility] CenterIn the event this information is protected by the Federal Confidentiality of Alcohol and Drug Abuse Patient Records regulations: The Federal rules restrict any use of the information to criminally investigate or prosecute any alcohol or drug abuse patient.[facility] CenterIn the event this information is protected by the Federal Confidentiality of Alcohol and Drug Abuse Patient Records regulations: The Federal rules restrict any use of the information to criminally investigate or prosecute any alcohol or drug abuse patient.[facility] CenterIn the event this information is protected by the Federal Confidentiality of Alcohol and Drug Abuse Patient Records regulations: The Federal rules restrict any use of the information to criminally investigate or prosecute any alcohol or drug abuse patient.[facility] CenterIn the event this information is protected by the Federal Confidentiality of Alcohol and Drug Abuse Patient Records regulations: The Federal rules restrict any use of the information to criminally investigate or prosecute any alcohol or drug abuse patient.[facility] CenterIn the event this information is protected by the Federal Confidentiality of Alcohol and Drug Abuse Patient Records regulations: The Federal rules restrict any use of the information to criminally investigate or prosecute any alcohol or drug abuse patient.[facility] CenterIn the event this information is protected by the Federal Confidentiality of Alcohol and Drug Abuse Patient Records regulations: The Federal rules restrict any use of the information to criminally investigate or prosecute any alcohol or drug abuse patient.[facility] CenterIn the event this information is protected by the Federal Confidentiality of Alcohol and Drug Abuse Patient Records regulations: The Federal rules restrict any use of the information to criminally investigate or prosecute any alcohol or drug abuse patient.[facility] CenterIn the event this information is protected by the Federal Confidentiality of Alcohol and Drug Abuse Patient Records regulations: The Federal rules restrict any use of the information to criminally investigate or prosecute any alcohol or drug abuse patient.[facility] CenterIn the event this information is protected by the Federal Confidentiality of Alcohol and Drug Abuse Patient Records regulations: The Federal rules restrict any use of the information to criminally investigate or prosecute any alcohol or drug abuse patient.[facility] CenterIn the event this information is protected by the Federal Confidentiality of Alcohol and Drug Abuse Patient Records regulations: The Federal rules restrict any use of the information to criminally investigate or prosecute any alcohol or drug abuse patient.[facility] CenterIn the event this information is protected by the Federal Confidentiality of Alcohol and Drug Abuse Patient Records regulations: The Federal rules restrict any use of the information to criminally investigate or prosecute any alcohol or drug abuse patient.[facility] CenterIn the event this information is protected by the Federal Confidentiality of Alcohol and Drug Abuse Patient Records regulations: The Federal rules restrict any use of the information to criminally investigate or prosecute any alcohol or drug abuse patient.[facility] CenterIn the event this information is protected by the Federal Confidentiality of Alcohol and Drug Abuse Patient Records regulations: The Federal rules restrict any use of the information to criminally investigate or prosecute any alcohol or drug abuse patient.[facility] CenterIn the event this information is protected by the Federal Confidentiality of Alcohol and Drug Abuse Patient Records regulations: The Federal rules restrict any use of the information to criminally investigate or prosecute any alcohol or drug abuse patient.[facility] CenterIn the event this information is protected by the Federal Confidentiality of Alcohol and Drug Abuse Patient Records regulations: The Federal rules restrict any use of the information to criminally investigate or prosecute any alcohol or drug abuse patient.[facility] the event this information is protected by the Federal Confidentiality of Alcohol and Drug Abuse Patient Records regulations: The Federal rules restrict any use of the information to criminally investigate or prosecute any alcohol or drug abuse patient.[facility] CenterIn the event this information is protected by the Federal Confidentiality of Alcohol and Drug Abuse Patient Records regulations: The Federal rules restrict any use of the information to criminally investigate or prosecute any alcohol or drug abuse patient.[facility] CenterIn the event this information is protected by the Federal Confidentiality of Alcohol and Drug Abuse Patient Records regulations: The Federal rules restrict any use of the information to criminally investigate or prosecute any alcohol or drug abuse patient.[facility] CenterIn the event this information is protected by the Federal Confidentiality of Alcohol and Drug Abuse Patient Records regulations: The Federal rules restrict any use of the information to criminally investigate or prosecute any alcohol or drug abuse patient.[facility] CenterIn the event this information is protected by the Federal Confidentiality of Alcohol and Drug Abuse Patient Records regulations: The Federal rules restrict any use of the information to criminally investigate or prosecute any alcohol or drug abuse patient.[facility] CenterIn the event this information is protected by the Federal Confidentiality of Alcohol and Drug Abuse Patient Records regulations: The Federal rules restrict any use of the information to criminally investigate or prosecute any alcohol or drug abuse patient.[facility] CenterIn the event this information is protected by the Federal Confidentiality of Alcohol and Drug Abuse Patient Records regulations: The Federal rules restrict any use of the information to criminally investigate or prosecute any alcohol or drug abuse patient.[facility] CenterIn the event this information is protected by the Federal Confidentiality of Alcohol and Drug Abuse Patient Records regulations: The Federal rules restrict any use of the information to criminally investigate or prosecute any alcohol or drug abuse patient.[facility] CenterIn the event this information is protected by the Federal Confidentiality of Alcohol and Drug Abuse Patient Records regulations: The Federal rules restrict any use of the information to criminally investigate or prosecute any alcohol or drug abuse patient.[facility] CenterIn the event this information is protected by the Federal Confidentiality of Alcohol and Drug Abuse Patient Records regulations: The Federal rules restrict any use of the information to criminally investigate or prosecute any alcohol or drug abuse patient.[facility] CenterIn the event this information is protected by the Federal Confidentiality of Alcohol and Drug Abuse Patient Records regulations: The Federal rules restrict any use of the information to criminally investigate or prosecute any alcohol or drug abuse patient.[facility] CenterIn the event this information is protected by the Federal Confidentiality of Alcohol and Drug Abuse Patient Records regulations: The Federal rules restrict any use of the information to criminally investigate or prosecute any alcohol or drug abuse patient.[facility] CenterIn the event this information is protected by the Federal Confidentiality of Alcohol and Drug Abuse Patient Records regulations: The Federal rules restrict any use of the information to criminally investigate or prosecute any alcohol or drug abuse patient.[facility] CenterIn the event this information is protected by the Federal Confidentiality of Alcohol and Drug Abuse Patient Records regulations: The Federal rules restrict any use of the information to criminally investigate or prosecute any alcohol or drug abuse patient.[facility] CenterIn the event this information is protected by the Federal Confidentiality of Alcohol and Drug Abuse Patient Records regulations: The Federal rules restrict any use of the information to criminally investigate or prosecute any alcohol or drug abuse patient.[facility] CenterIn the event this information is protected by the Federal Confidentiality of Alcohol and Drug Abuse Patient Records regulations: The Federal rules restrict any use of the information to criminally investigate or prosecute any alcohol or drug abuse patient.[facility] CenterIn the event this information is protected by the Federal Confidentiality of Alcohol and Drug Abuse Patient Records regulations: The Federal rules restrict any use of the information to criminally investigate or prosecute any alcohol or drug abuse patient.[facility] CenterIn the event this information is protected by the Federal Confidentiality of Alcohol and Drug Abuse Patient Records regulations: The Federal rules restrict any use of the information to criminally investigate or prosecute any alcohol or drug abuse patient.[facility] CenterIn the event this information is protected by the Federal Confidentiality of Alcohol and Drug Abuse Patient Records regulations: The Federal rules restrict any use of the information to criminally investigate or prosecute any alcohol or drug abuse patient.[facility] CenterIn the event this information is protected by the Federal Confidentiality of Alcohol and Drug Abuse Patient Records regulations: The Federal rules restrict any use of the information to criminally investigate or prosecute any alcohol or drug abuse patient.[facility] CenterIn the event this information is protected by the Federal Confidentiality of Alcohol and Drug Abuse Patient Records regulations: The Federal rules restrict any use of the information to criminally investigate or prosecute any alcohol or drug abuse patient.[facility] CenterIn the event this information is protected by the Federal Confidentiality of Alcohol and Drug Abuse Patient Records regulations: The Federal rules restrict any use of the information to criminally investigate or prosecute any alcohol or drug abuse patient.[facility] CenterIn the event this information is protected by the Federal Confidentiality of Alcohol and Drug Abuse Patient Records regulations: The Federal rules restrict any use of the information to criminally investigate or prosecute any alcohol or drug abuse patient.[facility] CenterIn the event this information is protected by the Federal Confidentiality of Alcohol and Drug Abuse Patient Records regulations: The Federal rules restrict any use of the information to criminally investigate or prosecute any alcohol or drug abuse patient.[facility] CenterIn the event this information is protected by the Federal Confidentiality of Alcohol and Drug Abuse Patient Records regulations: The Federal rules restrict any use of the information to criminally investigate or prosecute any alcohol or drug abuse patient.[facility] CenterIn the event this information is protected by the Federal Confidentiality of Alcohol and Drug Abuse Patient Records regulations: The Federal rules restrict any use of the information to criminally investigate or prosecute any alcohol or drug abuse patient.[facility] CenterIn the event this information is protected by the Federal Confidentiality of Alcohol and Drug Abuse Patient Records regulations: The Federal rules restrict any use of the information to criminally investigate or prosecute any alcohol or drug abuse patient.[facility] CenterIn the event this information is protected by the Federal Confidentiality of Alcohol and Drug Abuse Patient Records regulations: The Federal rules restrict any use of the information to criminally investigate or prosecute any alcohol or drug abuse patient.[facility] CenterIn the event this information is protected by the Federal Confidentiality of Alcohol and Drug Abuse Patient Records regulations: The Federal rules restrict any use of the information to criminally investigate or prosecute any alcohol or drug abuse patient.[facility] CenterIn the event this information is protected by the Federal Confidentiality of Alcohol and Drug Abuse Patient Records regulations: The Federal rules restrict any use of the information to criminally investigate or prosecute any alcohol or drug abuse patient.[facility] CenterIn the event this information is protected by the Federal Confidentiality of Alcohol and Drug Abuse Patient Records regulations: The Federal rules restrict any use of the information to criminally investigate or prosecute any alcohol or drug abuse patient.[facility] CenterIn the event this information is protected by the Federal Confidentiality of Alcohol and Drug Abuse Patient Records regulations: The Federal rules restrict any use of the information to criminally investigate or prosecute any alcohol or drug abuse patient.[facility] CenterIn the event this information is protected by the Federal Confidentiality of Alcohol and Drug Abuse Patient Records regulations: The Federal rules restrict any use of the information to criminally investigate or prosecute any alcohol or drug abuse patient.[facility] CenterIn the event this information is protected by the Federal Confidentiality of Alcohol and Drug Abuse Patient Records regulations: The Federal rules restrict any use of the information to criminally investigate or prosecute any alcohol or drug abuse patient.[facility] CenterIn the event this information is protected by the Federal Confidentiality of Alcohol and Drug Abuse Patient Records regulations: The Federal rules restrict any use of the information to criminally investigate or prosecute any alcohol or drug abuse patient.[facility] CenterIn the event this information is protected by the Federal Confidentiality of Alcohol and Drug Abuse Patient Records regulations: The Federal rules restrict any use of the information to criminally investigate or prosecute any alcohol or drug abuse patient.[facility] CenterIn the event this information is protected by the Federal Confidentiality of Alcohol and Drug Abuse Patient Records regulations: The Federal rules restrict any use of the information to criminally investigate or prosecute any alcohol or drug abuse patient.[facility] CenterIn the event this information is protected by the Federal Confidentiality of Alcohol and Drug Abuse Patient Records regulations: The Federal rules restrict any use of the information to criminally investigate or prosecute any alcohol or drug abuse patient.[facility] Reason for Visit (unrecogniz ed section and content) Reason Comments New Patient Specialty Diagnoses / Procedures Referred By Zaida ayers Referred To Contact Oncology Diagnoses Liver masses Procedures CONSULT TO ONCOLOGY OFFICE/OUTPATIENT NEW HIGH MDM 60 MINUTES Girish Lemos MD [address] [place] [address] Phone: tel: fax: Referral ID Status Reason Start Date Expiration Date V isits Requested Visits Authorized [id number] Closed PCP Requested Referral 10/17/2024 10/17/2025 1 [...] of call back from Visiting nurse of [place] around 09/03/24 as requested with readings. Patient reports am readings higher but was advised by visiting nurse to take prior to medication. Reason Comments Abdominal Pain Reason Comments Abdominal Pain X 1 month Specialty Diagnoses / Procedures Referred By Zaida ayers Referred To Contact CT [facility] Diagnoses Generalized abdominal pain Diarrhea, unspecified type Nausea Procedures CT ABD/PEL W IVCON CT ABD & PELVIS W/CONTRAST Oleg Fields, ALEXA.PRIMING POWDER PREMIX BLENDER [address] [place] [address] [place] [address] Referral ID Status Reason Start Date Expiration Date V isits Requested Visits Authorized [id number] Closed Auto-Generate d Referral 10/16/2024 11/15/2025 1 1 Reason Comments Follow Up discuss lab results and care plan, diarrhea x 3 days Reason Comments Results Reason Comments Orders Reason Comments Patient Request Reason Comments Radiology CT Specialty Diagnoses / Procedures Referred By Zaida t Referred To Contact CT IMAGING Diagnoses Liver masses Procedures CT CHEST W IVCON DIAGNOSTIC COMPUTED TOMOGRAPHY THORAX W/CONTRAST Girish Lemos MD [address] [place] [address] Phone: tel: fax: [place] [address] Referral ID Status Reason Start Date Expiration Date V isits Requested Visits Authorized [id number] Closed Auto-Generate d Referral 10/17/2024 11/16/2025 1 [...] Care Teams (unrecognized sec tion and content) Contact Center Specialist Relationship Specialty Start Date End Date Girish Lemos MD [address] [place], [place] [id number] PCP - General Family Practice 11/14/17 Contact Center Specialist Relationship Specialty Start Date End Date Girish Lemos MD [address] [place] [address] PCP - General Family Practice 11/14/17 Contact Center Specialist Relationship Specialty Start Date End Date Girish Lemos MD [address] [place], [place] [id number] PCP - General Family Medicine 11/14/17 Contact Center Specialist Relationship Specialty Start Date End Date Girish Lemos MD [address] [place] [place] [address] PCP - General Family Medicine 11/14/17 Contact Center Specialist Relationship Specialty Start Date End Date Girish Lemos MD [address] [place] [place] [address] PCP - General Family Medicine 11/14/17 Contact Center Specialist Relationship Specialty Start Date End Date Girish Lemos MD [address] [place] [place] [address] PCP - General Family Medicine 11/14/17 Contact Center Specialist Relationship Specialty Start Date End Date Girish Lemos MD [address] [place] [address] PCP - General Family Medicine 11/14/17 Contact Center Specialist Relationship Specialty Start Date End Date Girish Lemos MD [address] [place] [place] [address] PCP - General Family Medicine 11/14/17 Contact Center Specialist Relationship Specialty Start Date End Date Girish Lemos MD [address] [place] [address] PCP - General Family Medicine 11/14/17 Contact Center Specialist Relationship Specialty Start Date End Date Girish Lemos MD [address] [place] [address] PCP - General Family Medicine 11/14/17 Contact Center Specialist Relationship Specialty Start Date End Date Girish Lemos MD [address] [place] [address] PCP - General Family Medicine 11/14/17 Team Status: Active Member Role Status Dates DEFINED NOT Family Provider Active Dr. Fabricio Lemos MD Primary Care Provider Acti ve Team Status: Inactive Member Role Status Dates Dr. Fabricio Lemos MD Primary Care Provider, Ref erring Provider Active Roxann Gomez SYSTEM CONTROLLER, SYSTEM CONTROLLER-C Attending Provider Active Team Status: Inactive Member Role Status Dates Dr. Fabricio Lemos MD Primary Care Provider Acti ve Roxann Gomez SYSTEM CONTROLLER, SYSTEM CONTROLLER-C Attending Provider, Basil rendon Provider Active Contact Center Specialist Relationship Specialty Start Date End Date Girish Lemos MD [address] [place] [address] PCP - General Family Medicine 11/14/17 Contact Center Specialist Relationship Specialty Start Date End Date Girish Lemos MD [address] [place] [address] PCP - General Family Medicine 11/14/17 Contact Center Specialist Relationship Specialty Start Date End Date Girish Lemos MD [address] [place] [address] PCP - General Family Medicine 11/14/17 Contact Center Specialist Relationship Specialty Start Date End Date Girish Lemos MD [address] [place] [address] PCP - General Family Medicine 11/14/17 Contact Center Specialist Relationship Specialty Start Date End Date Girish Lemos MD [address] [place] [address] PCP - General Family Medicine 11/14/17 Team [...] MD Attending Provider, Referring Pr ovider Active Contact Center Specialist Relationship Specialty Start Date End Date Girish Lemos MD [address] [place] [place] [address] PCP - General Family Medicine 11/14/17 Contact Center Specialist Relationship Specialty Start Date End Date Girish Lemos MD [address] [place] [address] PCP - General Family Medicine 11/14/17 Contact Center Specialist Relationship Specialty Start Date End Date Girish Lemos MD [address] [place] [address] PCP - General Family Medicine 11/14/17 Contact Center Specialist Relationship Specialty Start Date End Date Girish Lemos MD [address] [place] [address] PCP - General Family Medicine 11/14/17 Contact Center Specialist Relationship Specialty Start Date End Date Girish Lemos MD [address] [place] [address] PCP - General Family Medicine 11/14/17 Contact Center Specialist Relationship Specialty Start Date End Date Girish Lemos MD [address] [place] [address] PCP - General Family Medicine 11/14/17 Contact Center Specialist Relationship Specialty Start Date End Date Girish Lemos MD [address] [place] [address] PCP - General Family Medicine 11/14/17 Contact Center Specialist Relationship Specialty Start Date End Date Girish Lemos MD [address] [place] [address] PCP - General Family Medicine 11/14/17 Contact Center Specialist Relationship Specialty Start Date End Date Girish Lemos MD [address] [place] [address] PCP - General Family Medicine 11/14/17 Contact Center Specialist Relationship Specialty Start Date End Date Girish Lemos MD [address] [place] [address] PCP - General Family Medicine 11/14/17 Contact Center Specialist Relationship Specialty Start Date End Date Girish Lemos MD [address] [place] [address] PCP - General Family Medicine 11/14/17 Contact Center Specialist Relationship Specialty Start Date End Date Girish Lemos MD [address] [place] [address] PCP - General Family Medicine 11/14/17 Contact Center Specialist Relationship Specialty Start Date End Date Girish Lemos MD [address] [place] [address] PCP - General Family Medicine 11/14/17 PodlogarJeanette APRN.PRIMING POWDER PREMIX BLENDER [address] [place] [address] Journeyman Pressman Family Medicine 08/23/24 Contact Center Specialist Relationship Specialty Start Date End Date Girish Lemos MD [address] [place] [address] PCP - General Family Medicine 11/14/17 Podlogar, Jeanette, POSITION CLASSIFICATION SPECIALIST.PRIMING POWDER PREMIX BLENDER [address] [place] [address] Journeyman Pressman Family Medicine 08/23/24 Contact Center Specialist Relationship Specialty Start Date End Date Girish Lemos MD [address] [place] [address] PCP - General Family Medicine 11/14/17 Podlogar, Jeanette, POSITION CLASSIFICATION SPECIALIST.PRIMING POWDER PREMIX BLENDER [address] [place] [address] Journeyman Pressman [facility] Medicine 08/23/24 Contact Center Specialist Relationship Specialty Start Date End Date Girish Lemos MD [address] [place] [address] PCP - General Family Medicine 11/14/17 Podlogar, Jeanette, POSITION CLASSIFICATION SPECIALIST.PRIMING POWDER PREMIX BLENDER [address] [place] [address] Journeyman Pressman Family Medicine 08/23/24 Contact Center Specialist Relationship Specialty Start Date End Date Girish Lemos MD [address] [place] [address] PCP - General Family Medicine 11/14/17 Podlogar, Jeanette, POSITION CLASSIFICATION SPECIALIST.PRIMING POWDER PREMIX BLENDER [address] [place] [address] Journeyman Pressman Family Medicine 08/23/24 Contact Center Specialist Relationship Specialty Start Date End Date Girish Lemos MD [address] [place] [address] PCP - General Family Medicine 11/14/17 Podlogar, Jeanette, POSITION CLASSIFICATION SPECIALIST.PRIMING POWDER PREMIX BLENDER [address] [place] [address] Journeyman Pressman Family [facility] 08/23/24 Contact Center Specialist Relationship Specialty Start Date End Date Girish Lemos MD [address] [place] [address] PCP - General Family Medicine 11/14/17 Podlogar, Jeanette, POSITION CLASSIFICATION SPECIALIST.PRIMING POWDER PREMIX BLENDER [address] [place] [address] [facility] 08/23/24 Contact Center Specialist Relationship Specialty Start Date End Date Girish Lemos MD [address] [place] [address] PCP - General Family Medicine 11/14/17 Podlogar, Jeanette, POSITION CLASSIFICATION SPECIALIST.PRIMING POWDER PREMIX BLENDER [address] [place] [address] [facility] 08/23/24 Contact Center Specialist Relationship Specialty Start Date End Date Girish Lemos MD [address] [place] [address] PCP - General Family Medicine 11/14/17 Podlogar, Jeanette, POSITION CLASSIFICATION SPECIALIST.PRIMING POWDER PREMIX BLENDER [address] [place] [address] [facility] 08/23/24 Contact Center Specialist Relationship Specialty Start Date End Date Girish Lemos MD [address] [place] [address] PCP - General Family Medicine 11/14/17 Podlogar, Jeanette, POSITION CLASSIFICATION SPECIALIST.PRIMING POWDER PREMIX BLENDER [address] [place] [address] Journeyman Pressman Family [facility] 08/23/24 Contact Center Specialist Relationship Specialty Start Date End Date Girish Lemos MD [address] [place] [address] PCP - General Family Medicine 11/14/17 Podlogar, Jeanette, POSITION CLASSIFICATION SPECIALIST.PRIMING POWDER PREMIX BLENDER [address] [place] [address] Journeyman Pressman Family Medicine 08/23/24 Contact Center Specialist Relationship Specialty Start Date End Date Girish Lemos MD [address] [place] [address] PCP - General Family Medicine 11/14/17 Podlogar, Jeanette, POSITION CLASSIFICATION SPECIALIST.PRIMING POWDER PREMIX BLENDER [address] [place] [address] Journeyman Pressman Family Medicine 08/23/24 Contact Center Specialist Relationship Specialty Start Date End Date Girish Lemos MD [address] [place] [address] PCP - General Family Medicine 11/14/17 Podlogar, Jeanette, POSITION CLASSIFICATION SPECIALIST.PRIMING POWDER PREMIX BLENDER [address] [place] [address] Journeyman Pressman Family Medicine 08/23/24 Contact Center Specialist Relationship Specialty Start Date End Date Girish Lemos MD [address] [place] [address] PCP - General Family Medicine 11/14/17 Podlogar, Jeanette, POSITION CLASSIFICATION SPECIALIST.PRIMING POWDER PREMIX BLENDER [address] [facility] [address] Journeyman Pressman Family Medicine 08/23/24 Roxann Gomez [address] [place] [address] Vascular Medicine 11/05/24 Contact Center Specialist Relationship Specialty Start Date End Date Girish Lemos MD [address] [facility] [address] PCP - General Family Medicine 11/14/17 PodlogarJeanette APRN.PRIMING POWDER PREMIX BLENDER [address] [facility] [place] [address] Journeyman Pressman Family Medicine 08/23/24 Roxann Gomez [address] [place] [address] Vascular Medicine 11/05/24 Silas Robbins MD [address] [place] [address] Hematology/Oncology 11/10/24 Contact Center Specialist Relationship Specialty Start Date End Date Girish Lemos MD [address] [facility] [place] [address] PCP - General Family Medicine 11/14/17 Podlogar, ALEXA Reid.PRIMING POWDER PREMIX BLENDER [address] [facility] [address] Journeyman Pressman Family Medicine 08/23/24 Roxann Gomez [address] [place] [address] Vascular Medicine 11/05/24 Silas Robbins MD [address] [place], [place] [address] Hematology/Oncology 11/10/24 Contact Center Specialist Relationship Specialty Start Date End Date Girish Lemos MD [address] [place], [place] [address] PCP - General Family Medicine 11/14/17 PodlogarJeanette APRN.PRIMING POWDER PREMIX BLENDER [address] [place], [place] [address] Journeyman Pressman Family Medicine 08/23/24 Roxann Gomez [address] [facility] [place] [address] Vascular Medicine 11/05/24 Silas Robbins MD [address] [place], [place] [id number] Hematology/Oncology 11/10/24 Team Status: Active Member Role Status Dates Dr. Fabricio Lemos MD Primary Care Provider Acti ve Team Status: Inactive Member Role Status Dates Dr. Fabricio Lemos MD Primary Care Provider Acti ve Start: November 03, 2024 End: November 03, 2024 Dr. Fabricio Lemos MD Referring Provider Active Start: November 03, 2024 End: November 03, 2024 Roxann Gomez SYSTEM CONTROLLER, SYSTEM CONTROLLER-C Attending Provider Active Start: November 03, 2024 End: November 03, 2024 Team Status: Inactive Member Role Status Dates Dr. Fabricio Lemos MD Primary Care Provider Acti ve Start: November 11, 2024 End: November 11, 2024 Roxann Gomez NP, SYSTEM CONTROLLER-C Attending Provider Active Start: November 11, 2024 End: November 11, 2024 Roxann Gomez NP, SYSTEM CONTROLLER-C Referring Provider Active Start: November 11, 2024 [...] November 15, 2024 Dr. Mae Horton , Attending Provider Active S tart: November 12, 2024 End: November 15, 2024 Team Status: Active Member Role Status Dates Dr. Fabricio Lemos MD Primary Care Provider Acti ve Start: November 12, 2024 Austin Mack MD Emergency Provider Active Star t: November 12, 2024 Dr. Mae Horton , Admit Provider Active Start : November 12, 2024 Dr. Mae Horton , Attending Provider Active S tart: November 12, 2024 Dr. Mae Horton , Other Provider Active Start : November 12, 2024 Team Status: Active Member Role Status Dates Dr. Fabricio Lemos MD Primary Care Provider Acti ve Start: November 13, 2024 Austin Mack MD Emergency Provider Active Star t: November 13, 2024 Dr. Mae Horton , Admit Provider Active Start : November 13, [...] : November 14, 2024 Dr. Mae Horton , Attending Provider Active S tart: November 14, [...] 2024 End: November 24, 2024 Roxann Gomez SYSTEM CONTROLLER, SYSTEM CONTROLLER-C Referring Provider Active Start: November 24, 2024 [...] 2024 End: December 02, 2024 Sharda Bronson SYSTEM CONTROLLER, SYSTEM CONTROLLER-C Attending Provider Active Start: December 02, 2024 [...] 2024 End: December 09, 2024 Sharda Bronson SYSTEM CONTROLLER, SYSTEM CONTROLLER-C Attending Provider Active Start: December 09, 2024 [...] Provider Active S tart: December 12, 2024 Contact Center Specialist Relationship Specialty Start Date End Date Girish Lemos MD [address] [place] [address] PCP - General Family Medicine 11/14/17 Podlogar, ALEXA Reid.PRIMING POWDER PREMIX BLENDER [address] [facility] [place] [address] Journeyman Pressman [facility] 08/23/24 Roxann Gomez [address] [place] [address] Vascular Medicine 11/05/24 Silas Robbins MD [address] [place] [address] Hematology/Oncology 11/10/24 Oleg Fields APRN.PRIMING POWDER PREMIX BLENDER [address] [facility] [place] [address] [facility] 12/08/24 Contact Center Specialist Relationship Specialty Start Date End Date Girish Lemos MD [address] [facility] [place] [address] PCP - General Family Medicine 11/14/17 Podlogar, ALEXA Reid.PRIMING POWDER PREMIX BLENDER [address] [facility] [place] [address] Journeyman Pressman [facility] 08/23/24 Roxann Gomez [address] [place] [address] Vascular Medicine 11/05/24 Silas Robbins MD [address] [place] [address] Hematology/Oncology 11/10/24 Oleg Fields APRN.PRIMING POWDER PREMIX BLENDER [address] [facility] [place] [address] [facility] 12/08/24 Contact Center Specialist Relationship Specialty Start Date End Date Girish Lemos MD [address] [place], [place] [address] PCP - General Family Medicine 11/14/17 PodlogarJeanette APRN.PRIMING POWDER PREMIX BLENDER [address] [place], [place] [address] [facility] 08/23/24 Roxann Gomez [address] [place] [phone] Vascular Medicine 11/05/24 Silas Robbins MD [address] [place], [place] [address] Hematology/Oncology 11/10/24 Oleg Fields APRN.PRIMING POWDER PREMIX BLENDER [address] [place], [place] [address] [facility] 11/28/24 12/07/24 Oleg Fields APRN.PRIMING POWDER PREMIX BLENDER [address] [place], [place] [id number] [facility] 12/08/24 Team Status: Inactive Member Role Status Dates Dr. Fabricio Lemos MD Primary Care Provider Acti ve Start: December 16, 2024 End: December 16, 2024 Dr. Fabricio Lemos MD Referring Provider Active Start: December 16, 2024 End: December 16, 2024 Sharda Bronson SYSTEM CONTROLLER, SYSTEM CONTROLLER-C Attending Provider Active Start: December 16, 2024 End: December 16, 2024 Team Status: Inactive Member Role Status Dates Dr. Fabricio Lemos MD Primary Care Provider Acti ve Start: December 22, 2024 End: December 22, 2024 Dr. Fabricio Lemos MD Referring Provider Active Start: December 22, 2024 End: December 22, 2024 Kristen Mattson PA PAShanikaC Attending Provider Active Start: December 22, 2024 End: December 22, 2024 Team Status: Inactive Member Role Status Dates Dr. Fabricio Lemos MD Primary Care Provider Acti ve Start: December 29, 2024 End: December 29, 2024 Dr. Fabricio Lemos MD Referring Provider Active Start: December 29, 2024 End: December 29, 2024 Sharda Bronson SYSTEM CONTROLLER, SYSTEM CONTROLLER-C Attending Provider Active Start: December 29, 2024 [...] Provider Active Sta rt: January 10, 2025 Contact Center Specialist Relationship Specialty Start Date End Date Girish Lemos MD [address] [facility], [place] [address] PCP - General Family Medicine 11/14/17 PodlogarJeanette APRN.PRIMING POWDER PREMIX BLENDER [address] [facility], [place] [address] Journeyman Pressman Family Medicine 08/23/24 Roxann Gomez [address] [place] [address] Vascular Medicine 11/05/24 Silas Robbins MD [address] [facility], [place] [phone] Hematology/Oncology 11/10/24 Oleg Fields APRN.PRIMING POWDER PREMIX BLENDER [address] [place], [place] [id number] Journeyman Pressman Family [facility] 12/08/24 Contact Center Specialist Relationship Specialty Start Date End Date Girish Lemos MD [address] [facility] [place] [address] PCP - General Family Medicine 11/14/17 PodlogarJeanette APRN.PRIMING POWDER PREMIX BLENDER [address] [facility] [place] [address] Journeyman Pressman Family [facility] 08/23/24 Roxann Gomez [address] [place] [address] Vascular Medicine 11/05/24 Silas Robbins MD [address] [place] [address] Hematology/Oncology 11/10/24 Oleg Fields APRN.PRIMING POWDER PREMIX BLENDER [address] [facility] [place] [address] [facility] 12/08/24 Contact Center Specialist Relationship Specialty Start Date End Date Girish Lemos MD [address] [facility] [place] [address] PCP - General Family Medicine 11/14/17 PodlogarJeanette APRN.PRIMING POWDER PREMIX BLENDER [address] [facility] [place] [address] [facility] 08/23/24 Roxann Gomez [address] [place] [address] Vascular Medicine 11/05/24 Silas Robbins MD [address] [place] [address] Hematology/Oncology 11/10/24 Oleg Fields APRN.PRIMING POWDER PREMIX BLENDER [address] [facility] [place] [address] Journeyman Pressman Family Medicine 12/08/24 Contact Center Specialist Relationship Specialty Start Date End Date Girish Lemos MD [address] [place] [place] [address] PCP - General Family Medicine 11/14/17 PodlogarJeanette APRN.PRIMING POWDER PREMIX BLENDER [address] [place] [address] Journeyman Pressman Family Medicine 08/23/24 Roxann Gomez [address] [place] [address] Vascular Medicine 11/05/24 Silas Robbins MD [address] [place] [address] Hematology/Oncology 11/10/24 Oleg Fields, ALEXA.PRIMING POWDER PREMIX BLENDER [address] [facility] [place] [address] Journeyman Pressman Family Medicine 12/08/24 Contact Center Specialist Relationship Specialty Start Date End Date Girish Lemos MD [address] [place] [place] [address] PCP - General Family Medicine 11/14/17 Podlogar, ALEXA Reid.PRIMING POWDER PREMIX BLENDER [address] [place] [address] Journeyman Pressman Family Medicine 08/23/24 Roxann Gomez [address] [place] [phone] Vascular Medicine 11/05/24 Silas Robbins MD [address] [place], [place] [address] Hematology/Oncology 11/10/24 Oleg Fields APRN.PRIMING POWDER PREMIX BLENDER [address] [place], [place] [id number] Journeyman Pressman Family Medicine 12/08/24 Team Status: Active Member Role Status [...] Provider Active Start: January 10, 2025 Dr. aJssi Borden MD Other Provider Active Sta rt: January 10, 2025 Team Status: Inactive Member Role Status Dates Dr. Fabricio Lemos MD Primary Care Provider Acti ve Start: February 03, 2025 End: February 03, 2025 Dr. Farbicio Lemos MD Referring Provider Active Start: February [...] Referring Provider Active Start: February 03, 2025 Contact Center Specialist Relationship Specialty Start Date End Date Girish Lemos MD [address] [facility] [place], [place] [address] PCP - General Family Medicine 11/14/17 PodlogarJeanette APRN.PRIMING POWDER PREMIX BLENDER [address] [facility] [place] [address] Journeyman Pressman Family Medicine 08/23/24 Roxann Gomez [address] [facility] [place] [phone] Vascular Medicine 11/05/24 Silas Robbins MD [address] [place], [place] [address] Hematology/Oncology 11/10/24 Team Status: Active Member Role [...] 2024 End: November 24, 2024 Roxann Gomez SYSTEM CONTROLLER, SYSTEM CONTROLLER-C Referring Provider Active Start: November 24, 2024 [...] 2024 End: December 02, 2024 Sharda Bronson SYSTEM CONTROLLER, SYSTEM CONTROLLER-C Attending Provider Active Start: December 02, 2024 [...] 2024 End: December 09, 2024 Sharda Bronson SYSTEM CONTROLLER, SYSTEM CONTROLLER-C Attending Provider Active Start: December 09, 2024 [...] 2024 End: December 16, 2024 Sharda Bronson SYSTEM CONTROLLER, SYSTEM CONTROLLER-C Attending Provider Active Start: December 16, 2024 End: December 16, 2024 Team Status: Inactive Member Role/Relationship Status Dates Dr. Fabricio Lemos MD Primary Care Provider Acti ve Start: December 22, 2024 End: December 22, 2024 Dr. Fabricio Lemos MD Referring Provider Active Start: December 22, 2024 End: December 22, 2024 Kristen BENNETT PA-C Attending Provider Active Start: December 22, 2024 End: December 22, 2024 Team Status: Inactive Member Role/Relationship Status Dates Dr. Fabricio Lemos MD Primary Care Provider Acti ve Start: December 29, 2024 End: December 29, 2024 Dr. Fabricio Lemos MD Referring Provider Active Start: December 29, 2024 End: December 29, 2024 Sharda Bronson SYSTEM CONTROLLER, SYSTEM CONTROLLER-C Attending Provider Active Start: December 29, 2024 [...] Referring Provider Active Start: March 16, 2025 Contact Center Specialist Relationship Specialty Start Date End Date Girish Lemos MD [address] [facility] [place] [address] PCP - General Family Medicine 11/14/17 PodlogarJeanette APRN.PRIMING POWDER PREMIX BLENDER [address] [facility] [place] [address] Journeyman Pressman Family Medicine 08/23/24 Roxann Gomez [address] [place] [address] Vascular Medicine 11/05/24 Silas Robbins MD [address] [place] [address] Hematology/Oncology 11/10/24 Oleg Fields APRN.PRIMING POWDER PREMIX BLENDER [address] [place] [address] Journeyman Pressman Family Medicine 02/26/25 Team Status: Inactive Member Role/Relationship Status Dates Dr. Fabricio Lemos MD Primary Care Provider Acti ve Start: December 09, 2024 End: December 09, 2024 Dr. Fabricio Lemos MD Referring Provider Active Start: December 09, 2024 End: December 09, 2024 Sharda Bronson SYSTEM CONTROLLER, SYSTEM CONTROLLER-C Attending Provider Active Start: December 09, 2024 [...] 2024 End: December 16, 2024 Sharda Bronson SYSTEM CONTROLLER, SYSTEM CONTROLLER-C Attending Provider Active Start: December 16, 2024 End: December 16, 2024 Team Status: Inactive Member Role/Relationship Status Dates Dr. Fabricio Lemos MD Primary Care Provider Acti ve Start: December 22, 2024 End: December 22, 2024 Dr. Fabricio Lemos MD Referring Provider Active Start: December 22, 2024 End: December 22, 2024 Kristen Mattson PA PA-C Attending Provider Active Start: December 22, 2024 End: December 22, 2024 Team Status: Inactive Member Role/Relationship Status Dates Dr. Fabricio Lemos MD Primary Care Provider Acti ve Start: December 29, 2024 End: December 29, 2024 Dr. Fabricio Lemos MD Referring Provider Active Start: December 29, 2024 End: December 29, 2024 Sharda Bronson SYSTEM CONTROLLER, SYSTEM CONTROLLER-C Attending Provider Active Start: December 29, 2024 [...] Primary Care Provider Acti ve Start: March 19, 2025 Dr. Sherice Fernandez MD Attending Provider Active Start: March 19, 2025 Dr. Sherice Fernandez MD Referring Provider Active Start: March 19, 2025 Team Status: Inactive Member Role/Relationship Status Dates Dr. Fabricio Lemos MD Primary Care Provider Acti ve Start: April 05, 2025 End: April 05, 2025 Dr. Juan Lynch DO Emergency Provider Active S tart: April 05, 2025 End: April 05, 2025 Team Status: Inactive Member Role/Relationship Status Dates Dr. Fabricio Lemos MD Primary Care Provider Acti ve Start: April 05, 2025 End: April 05, 2025 Dr. Juan Lynch DO Emergency Provider Active S tart: April 05, 2025 End: April 05, 2025 Team Status: Active Member Role/Relationship Status Dates Dr. Fabricio Lemos MD Primary Care Provider Acti ve Start: April 06, 2025 Dr. Sherice Fernandez MD Attending Provider Active Start: April 06, 2025 Dr. Sherice Fernandez MD Referring Provider Active Start: April 06, 2025 Team Status: Inactive Member Role/Relationship Status Dates Dr. Fabricio Lemos MD Primary Care Provider Acti ve Start: April 06, 2025 End: April 06, 2025 Dr. Fabricio Lemos MD Referring Provider Active Start: April 06, 2025 End: April 06, 2025 Sharda Bronson SYSTEM CONTROLLER, SYSTEM CONTROLLER-C Attending Provider Active Start: April 06, 2025 End: April 06, 2025 FOR RECORDS PERTAINING TO PATIENTS WHO [...] BE BASED ON THE PRIMARY CLINICAL RECORDS. [employer] provides no warranty or guarantee of the accuracy or completeness of information in this document.
== END | disposition home or self-care (01) ==
LOC: OPMRI 12:33 → MRI 14:40
PROVIDERS: PCP Family Medicine; Referring Provider Nurse Practitioner Family; Visit Provider Nurse Practitioner Family
DX: M25.552 Pain in left hip (principal); R29.898 Other symptoms and signs involving the musculoskeletal system
CPT/HCPCS: 72158; A9575; A4216

== ENCOUNTER 2025-04-20 01:56 | Emergency (ER) | payer MEDICARE, SELFPAY ==
[2025-04-20 01:57] VITALS: BP 153/80; PULSE 98; RESP 18; TEMP 37.2; O2SAT 93; BMI 24.7
--- NOTE | 2025-04-20 02:29 | CT_ITS ---
PROCEDURE: ABDOMEN/PELVIS W IV CONT ONLY 04/20/2025 REASON FOR EXAM: VOMITING, LOW BACK PAIN TECHNIQUE: ABDOMEN/PELVIS W IV CONT ONLY Coronal and Sagittal reconstruction series were provided. CONTRAST: Isovue 370 VOLUME: 99 mL One or more dose reduction techniques were used (e.g., Automated exposure control, adjustment of the mA and/or kV according to patient size, use of iterative reconstruction technique. RADIATION DOSE SUMMARY: CTDlvol: 25 mGy DLP: 955 mGycm COMPARISON: 02/17/2025 FINDINGS: Bibasilar scar/atelectasis. Normal heart size. Cirrhosis and extensive liver metastatic disease, similar to the previous examination. There are more than 30 liver lesions measuring up to about 3 cm. Status post cholecystectomy. Stable periportal adenopathy, nonspecific. Unremarkable pancreas, spleen, adrenal glands, kidneys. No hydronephrosis. Normal bladder. Normal uterus. Small ascites which is a new finding. No retroperitoneal or pelvic adenopathy. No free air. Nondistended bowel. No signs of appendicitis. No acute large bowel findings. Lumbar spine degeneration. Interval improved appearance to sclerotic osseous metastatic disease suggesting response to treatment. Interval development of lytic bony metastatic disease, L4 spinous process and lamina, series 2 images 56/60, extraosseous extension. 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 This may be a cause of low back pain. Extensive liver metastatic disease/treated metastases as seen previously. New small ascites. Reading Location: [place] [address]
[2025-04-20] MEDS: 0.9% Normal Saline (1000mL) 1,000 ML 1000 ML IV (02:50)
--- NOTE | 2025-04-20 03:00 | EX.ED.DYSGE1 ---
HPI History of Present Illness Chief Complaint: Abd Pain Informant: patient and spouse/S.O. Narrative Narrative: History recent metastatic lung cancer metastasis to the spine lumbar region and brain diagnosed a few months ago pursuing other. Went through 6 rounds of chemo currently for described as immunotherapy monthly has received her first dose. Followed by Dr. Fatima. For pain and is on morphine sulfate 30 mg twice daily. Breakthrough morphine at 15 mg every 4 hours. Last 24 hours nausea vomit x 1 and again things down. Increasing pain in her lumbar. No pain down the legs. No fever chills or sweats. Reports pending radiation treatment. [facility] Medical History Left leg weakness Anemia Cancer Difficulty swallowing Hypothyroidism GERD (gastroesophageal reflux disease) Chest pain Encounter for chemotherapy management Internal hemorrhoids Current use of steroid medication Ambulates with cane Back pain On home oxygen therapy High grade neuroendocrine carcinoma of lung Jaundice Regional lymph node metastasis present Metastasis to bone Small cell lung cancer Loss of hearing Wears glasses Wears dentures Post-menopausal Thyroid disease Arthritis High cholesterol DVT (deep venous thrombosis) Injury of back Migraine headache Syncope History of hiatal hernia History of ulceration History of diverticulitis Former smoker Asthma CPAP (continuous positive airway pressure) dependence Leg cramps Shortness of breath on exertion History of pain when walking Hypertension Heart murmur History of echocardiogram History of stress test Cardiology follow-up encounter Bradycardia Chronic respiratory failure with hypoxia Smoking greater than 40 pack years Pulmonary hypertension Bronchiectasis History of staph infection Hypoxia Home Medications ?Medication ?Instructions ?Recorded ?Last Taken ?Type levothyroxine 25 mcg tablet 25 mcg PO DAILY thyroid 11/03/17 02/16/25 05:30 History Disability Placard #1 ea 09/15/20 Unknown Rx potassium citrate 10 mEq (1,080 20 meq PO DAILY potassium 01/26/22 12/11/24 History mg) tablet,extended release albuterol sulfate 90 mcg/actuation 2 puff inhalation Q4H PRN 06/13/23 Unknown History aerosol inhaler shortness of breath or wheezing fluticasone propionate 50 1 spray intranasal DAILY PRN nasal 05/28/24 Unknown History mcg/actuation nasal congestion spray,suspension (Flonase Allergy Relief) losartan 25 mg tablet 25 mg PO DAILY blood pressure 11/12/24 02/16/25 05:30 History ondansetron HCl 8 mg tablet 8 mg PO Q8H PRN nausea and vomiting 11/24/24 01/09/25 History docusate sodium 100 mg capsule 100 mg PO BID PRN constipation 12/11/24 Unknown History omeprazole 40 mg capsule,delayed 40 mg PO BID gerd 12/11/24 02/16/25 05:30 History release lidocaine-prilocaine 2.5 %-2.5 % 1 applic topical ONCE PRN port 12/15/24 Unknown Rx topical cream access 30 days #30 grams prochlorperazine maleate 10 mg 10 mg PO Q6H PRN nausea and 12/15/24 01/07/25 Rx tablet vomiting #30 tabs mirtazapine 15 mg tablet 15 mg PO QHS sleep #30 tabs 12/29/24 01/08/25 Rx furosemide 20 mg tablet 20 mg PO DAILY PRN leg 01/10/25 Unknown Rx swelling/SOB #30 tabs gabapentin 400 mg capsule 600 mg PO TID nerve pain 04/13/25 Unknown History morphine 15 mg immediate release 15 mg PO Q4-6H PRN pain 04/13/25 Unknown History tablet morphine 30 mg tablet,extended 30 mg PO Q12H 04/20/25 Unknown History release Allergy/AdvReac Type Severity Reaction Status Date / Time DAVID Inhibitors Allergy Rash Verified 04/20/25 01:57 codeine Allergy Vomiting Verified 04/20/25 01:57 walnut Allergy Food Verified 04/20/25 01:57 Allergy prednisone AdvReac Other Verified 04/20/25 01:57 Sbtsgii-MVA-FbF Reductase AdvReac cramps Verified 04/20/25 01:57 Inhibitor (Zufprhq-Fbg-Lnf Reductase Inhibitor) Family History Mother Cancer Hx Lung CA. Father Cancer Hx Lung CA. Surgical History History of vascular access device Hx of right cataract extraction Hx of left cataract extraction Hx of breast reconstruction Hx of foot surgery Hx of surgical amputation of finger Hx of elbow surgery History of carpal tunnel surgery Hx of vein stripping History of cholecystectomy History of back surgery History of eye surgery History of breast biopsy History of tubal ligation History of History of appendectomy History of tonsillectomy Social History household members: spouse Smoking Status: Former smoker quit date: 08/17/16 Tobacco: How many years used: 45 alcohol intake: never ROS ROS ED Constitutional Constitutional ED: Denies fever(s) Cardiovascular Cardiovascular: Denies chest pain Respiratory/Chest Respiratory/Chest: Denies cough Gastrointestinal Gastrointestinal: Reports nausea and vomiting; Denies diarrhea Musculoskeletal Musculoskeletal: Reports back pain; Denies none Integumentary Denies rash or wounds Neurologic Neurologic: Denies weakness EXAM Physical Exam Const Vital Signs: 04/20/25 01:57 04/20/25 03:57 04/20/25 05:00 Temperature 98.9 F Temperature Source Oral Pulse Rate 98 95 90 Respiratory Rate 18 18 18 Blood Pressure 153/80 H 147/82 H 122/74 H Blood Pressure Mean 104 103 90 Pulse Ox 93 98 91 Oxygen Delivery Method Room Air Room Air Room Air Constitutional Narrative: Thin patient, uncomfortable, nontoxic General Appearance ED: NAD HEENT Reports moist mucous membranes normocephalic and atraumatic Eyes General Eye ED: Yes normal appearance of both eyes Neck full ROM Chest Wall Chest: Negative for tenderness Resp normal respiratory effort and normal air movement Effort and Inspection: symmetric chest movement; Negative for respiratory distress Cardio regular rate, regular rhythm and no murmurs Peripheral Pulses: pulses 2+ throughout GI normal to inspection, nondistended, normoactive bowel sounds and non-tender GI Narrative: Soft nondistended Palpation: Negative for guarding or rebound tenderness present Back/Spine Back/Spine Narrative: Tender palpation lower mid lumbar no step-offs Extremity normal to inspection General Extremety ED: Negative for edema or tenderness General Extremity: Negative for edema Neuro oriented x3 and no sensory deficits noted Sensorium / Orientation: awake and alert Skin no rashes or lesions noted and no wounds MDM MDM MDM Narrative Medical decision making narrative: Interventions / MDM: Differential diagnosis: Metastatic lung cancer to the spine and brain. Vomiting, back pain Diagnosis considered but do not suspect: No cauda equina symptoms. My EKG interpretation: N/A Imaging independently reviewed and interpreted by myself: CT abdomen pelvis IV contrast: L4 posterior element metastatic disease, no fractures. External documents reviewed: MRI April 06, 2025 had metastatic disease to T12, L2, L3, L4, and L5. Outpatient oncology notes since 04 06 which MRI was obtained. Radiation oncology visit 728 with planned upcoming radiation specially L4 area with possible enhancement involving epidural region at L4. Test considered but not ordered:N/A ED course: Presents nausea and vomiting unable to take her pain medicines. Worsening low back pain. IV established for labs. 10 mg morphine with Zofran and fluids. CT abdomen pelvis IV contrast for further evaluation. 0415: Labs are stable hemoglobin 9.7 stable from previous. Creatinine 1.18. Elevated ALP and AST slightly more than previous she has metastatic to bone and liver. States she does not feel well with pain and nausea. I will redose her with IV morphine along with Ativan 0.5 mg IV. Will reevaluate. Currently able to walk to the restroom slowly. 0505: Pain medications kicking in patient more comfortable. Peak effects with her being more drowsy per family in the room. Radiation plans are Sunday when discussing for treatment that is in 2 days. Will monitor reevaluate if pain controlled enough to go home versus needing hospitalization. 0539: Reevaluation pain is much more tolerable. Patient states she would like to go home to continued pain control. Goal is for radiation treatment to alleviate pain and to decrease her pain requirements. I discussed with patient and family, discussed with her palliative team for adjustment in the meantime. If she is pain not controlled, return to ED for reevaluation. All questions were answered. Re-evaluation: stable Disposition discussed with patient/family/significant other: Patient and family Case discussed with consulting clinician: N/A This note was generated with [employer] dictation software. It may contain incorrect words, spelling, and punctuation that were not noted in checking the note before signing. Lab Data Attestation: I reviewed the patient's lab results. Labs: Laboratory Results - last 24 hr 04/20/25 02:00 WBC 6.5 RBC 2.95 L Hgb 9.7 L Hct 30.1 L MCV 102.0 H MCH 32.9 H MCHC 32.2 RDW Std Deviation 61.8 H RDW Coeff of Brittanie 16.5 H Plt Count 190 MPV 10.7 Immature Gran % (Auto) 0.800 Neut % (Auto) 76.5 H Lymph % (Auto) 9.8 L [place] % (Auto) 11.2 H Eos % (Auto) 0.9 Baso % (Auto) 0.8 Absolute Neuts (auto) 4.9 Absolute Lymphs (auto) 0.63 L Nucleated RBC % 0 Sodium 141 Potassium 4.3 Chloride 103 Carbon Dioxide 24.0 Anion Gap 13 BUN 11 Creatinine 1.18 Estim Creat Clear Calc 39.78 L Est GFR (MDRD) Non-Af 50 L BUN/Creatinine Ratio 9.2 L Glucose 117 H Calcium 11.3 H Total Bilirubin 0.67 AST 220 H ALT 34 Alkaline Phosphatase 224 H Total Protein 6.6 Albumin 3.6 Globulin 3.0 Albumin/Globulin Ratio 1.2 Lipase 57 Radiography Diagnostic Testing: Clinical Impression(s) from Imaging Studies Abdomen/Pelvis CT 04/20/25 02:29 IMPRESSION: New L4 posterior element metastatic disease with extraosseous extension. This may be a cause of low back pain. Extensive liver metastatic disease/treated metastases as seen previously. New small ascites. Reading Location: [place] [id number] Discharge Plan Triage Chief Complaint: Abd Pain ED Provider: George Fajardo Dx/Rx/DC Orders Clinical Impression: High grade neuroendocrine carcinoma of lung, Metastasis, Back pain Instructions: Communicating About Pain, Common Myths About Pain Medications Prescriptions: No Action (DME) Disability Placard See Rx Instructions .Route .MEDSUPPLY Qty: 1 0RF Rx Instructions: Expires 09/09/2025 albuterol sulfate 90 mcg/actuation HFA aerosol inhaler 2 puff inhalation Q4H PRN (Reason: shortness of breath or wheezing) ondansetron HCl 8 mg tablet 8 mg PO Q8H PRN (Reason: nausea and vomiting) mirtazapine 15 mg tablet 15 mg PO QHS Qty: 30 3RF morphine 15 mg tablet 15 mg PO Q4-6H PRN (Reason: pain) levothyroxine 25 MCG tablet 25 mcg PO DAILY potassium citrate 10 mEq (1,080 mg) tablet extended release 20 meq PO DAILY Patient Comments: pt unsure if she takes this medication gabapentin 400 mg capsule 600 mg PO TID fluticasone propionate [Flonase Allergy Relief] 50 mcg/actuation spray,suspension 1 spray intranasal DAILY PRN (Reason: nasal congestion) Rx Instructions: administer into each nostril losartan 25 mg tablet 25 mg PO DAILY morphine 30 mg tablet extended release 30 mg PO Q12H omeprazole 40 MG capsule,delayed release(DR/EC) 40 mg PO BID docusate sodium 100 mg Capsule 100 mg PO BID PRN (Reason: constipation) Rx Instructions: Hold for diarrhea furosemide 20 mg tablet 20 mg PO DAILY PRN (Reason: leg swelling/SOB) Qty: 30 0RF lidocaine-prilocaine 2.5-2.5 % cream 1 applic topical ONCE PRN (Reason: port access) 30 Days Qty: 30 2RF prochlorperazine maleate 10 mg tablet 10 mg PO Q6H PRN (Reason: nausea and vomiting) Qty: 30 2RF Primary Care Provider: Fabricio Lemos Referrals: Fabricio Lemos MD [Primary Care Provider] - Activity Restrictions/Additional Instructions: You are given 2 separate doses of 10 mg IV morphine in the ED. CT scan abdomen pelvis no obstruction. Labs are stable. Discussed with your palliative team pain medicine adjustments with pending radiation treatment to your spine in 2 days. Print Language: [place]ralt[place] Disposition Disposition: Home, Self Care Discharge Date/Time: 04/20/25 06:01
[2025-04-20 03:02] LABS: Hematocrit 30.1 % (37-47); Hemoglobin 9.7 g/dL (12.0-15.0); Immature Granulocytes Count 0.050 X10^3/uL (0.0-0.0); Mean Corp Hgb Conc 32.2 g/dL (32-36); Mean Corpuscular Volume 102.0 fL (81-99); Mean Platelet Vol. 10.7 fl (6.2-12.0); NRBC Flagged by Analyzer 0 % (0-5); Platelet Count 190 K/mm3 (150-450); RBC Distribution Width CV 16.5 % (11.6-14.6); RBC Distribution Width SD 61.8 fl (35.1-43.9); Red Blood Count 2.95 M/mm3 (4.2-5.4); White Blood Count 6.5 K/mm3 (4.4-11.0)
[2025-04-20 03:32] LABS: AST(SGOT) 220 U/L (<=31); Alanine Aminotransfer ALT/SGPT 34 U/L (<=34); Albumin, Serum 3.6 g/dL (3.4-4.8); Alkaline Phosphatase 224 U/L (35-104); Anion Gap 13 (5-15); BUN 11 mg/dL (4-19); BUN/Creat Ratio 9.2 RATIO (10-20); Calcium,Total 11.3 mg/dL (7.6-11.0); Carbon Dioxide 24.0 mmol/L (21.0-32.0); Chloride 103 mmol/L (98-108); Estimated Creatinine Clearance 39.78 ml/min (50-250); Globulin 3.0 g/dL (2.2-4.2); Glucose 117 mg/dL (70-99); Lipase 57 U/L (13-75); Potassium 4.3 mmol/L (3.3-5.1)
[2025-04-20 03:57] VITALS: BP 147/82; PULSE 95; RESP 18; O2SAT 98
[2025-04-20] MEDS: Lorazepam 2 MG/ML WCH Syringe 0.5 MG IV (04:24)
--- OUTSIDE RECORDS SUMMARY | 2025-04-20 04:49 | XMS RPT_ITS | CCD ---
Author Organization [facility] Care Team Providers Care Lime Slaker Name Role Phone TAVALLAEE, TONI MONAZZAM Attending Unav ailable TAVALLAEE, TONI MONAZZAM Attending Unav ailable TAVALLAEE, TONI MONAZZAM Attending Unav ailable TAVALLAEE, TONI MONAZZAM Attending Unav ailable TAVALLAEE, TONI MONAZZAM Attending Unav ailable Dr. Fabricio Lemos Primary Care Provider Dr. Fabricio Lemos Referring Provider [phone] Patricia DICKEY, 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-C Roxann Attending Provider [phone] Girish Lemos MD Primary Care Provider Girish Lemos MD Primary Care Provider Girish Lemos MD Primary Care Provider Dr. Fabricio Lemos Primary Care Provider Dr. Fabricio Lemos Referring Provider Patricia DICKEY, 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-C Roxann Attending Provider Dr. Fabricio Lemos Primary Care Provider Dr. Fabricio Lemos Referring Provider Patricia DICKEY 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-C Roxann Attending Provider Dr. Fabricio Lemos Primary Care Provider Dr. Fabricio Lemos Referring Provider [phone] Dr. Tobias Gonsalves Attending Provider Dr. Tobias [...] Consulting Unavailable PROVIDER, UNKNOWN Consulting Unavailable [employer] 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, Jeanette Unavailable Roxann Gomez Unavailable Silas Robbins MD Unavailable Dr. Fabricio Lemos MD Primary Care Provider Dr. Fabricio Lemos MD Referring Provider Patricia 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-CRoxann Attending Provider Patricia 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-CRoxann Referring Provider Austin Mack MD Emergency Provider Dr. Mae Horton DO Admit Provider Dr. Mae Horton DO Attending Provider Dr. Mae Horton DO Other Provider Dr. Alex Mercado MD Emergency Provider Dr. Alex Mercado MD Attending Provider Dr. Sherice Fernandez MD Attending Provider Audie 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-C, Sharda Attending Provider Dr. Sherice Fernandez MD Referring Provider Macario ERNANDEZ, Dr. Jalloh Attending Provider Macario ERNANDEZ, Dr. Jalloh Referring Provider Macario ERNANDEZ, Dr. Jalloh Other Provider Knoble 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, Oleg Unavailable Knoble 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, Oleg Unavailable Rachael Mattson PA-C Attending Provider [...] Aminta ERNANDEZ, Dr. Regalado Referring Provider [phone] Patricia 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-C, Roxann Attending Provider Patricia 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-C, Roxann Referring Provider Austin Mack MD Emergency Provider Clifford EM, Dr. Wall Admit Provider Dr. Mae Horton DO Attending Provider Dr. Mae Horton DO Other Provider Rogelio ERNANDEZ, Dr. Johnson Attending Provider Rogelio ERNANDEZ, Dr. Johnson Emergency Provider Jim ERNANDEZ, Dr. Smiley Attending Provider Audie 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-C, Sharda Attending Provider Dr. Sherice Fernandez MD Referring Provider Dr. Yeimi Sorto MD Attending Provider Dr. Yeimi Sorto MD Referring Provider Dr. Yeimi Sorto MD Other Provider Twila DOBBINS, Rachael Attending Provider Raulito ERNANDEZ, Dr. De La Rosa Admit Provider Raulito ERNANDEZ, Dr. De La Rosa Referring Provider Raulito ERNANDEZ, Dr. De La oRsa Other Provider Dr. Jassi Borden MD Attending Provider Dr. Man Polo MD Attending Provider Vickey ERNANDEZ, Dr. Hancock Attending Provider Michi ERNANDEZ, Dr. Keene Other Provider Shun ERNANDEZ, Dr. Bernardo Attending Provider Shun ERNANDEZ, Dr. Bernardo Referring Provider Aminta ERNANDEZ, Dr. Regalado Primary Care Provider Patricia 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-C, Roxann Referring Provider Aminta ERNANDEZ, Dr. Regalado Referring Provider [phone] Twila BENNETT-C, Rachael Attending Provider Frederick ERNANDEZ, Austin Emergency Provider Shun ERNANDEZ, Dr. Bernardo Attending Provider Shun ERNANDEZ, Dr. Bernardo Referring Provider Diamond 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, Oleg Unavailable Aminta ERNANDEZ, Dr. Regalado Primary Care Provider Aminta ERNANDEZ, Dr. Regalado Referring Provider Audie 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-C, Sharda Attending Provider Jim ERNANDEZ, Dr. Smiley Attending Provider Jim ERNANDEZ, Dr. Smiley Referring Provider Cris EM, Dr. Martinez Emergency Provider Aminta ERNANDEZ, Dr. Regalado Primary Care Provider Macario ERNANDEZ, Dr. Jalloh Attending Provider Aminta ERNANDEZ, Dr. Regalado Referring Provider Audie 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-C, Sharda Attending Provider Dr. Juan Lynch DO Attending Provider Audie 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-C, Sharda Referring Provider Aminta ERNANDEZ, Dr. Regalado Primary Care Provider Dr. Reg Layne DO Attending Provider Az Hoffmann Attending Unavailable Bursley, Fabricio Primary Care Unavailable Az Hoffmann Referring Unavailable Bursley, Fabricio Primary Care Unavailable Cabezas, Estrella Referring Unavailable Cabezas, Estrella Consulting Unavailable Cabezas, Estrella Admitting Unavailable Michi, Jassi Attending Unavailable Isckarus, Mansour Referring Unavailable Isckarus, Mansour Attending Unavailable Bursley, Fabricio Primary Care Unavailable Bursley, Fabricio Primary Care Unavailable Cabzeas, Estrella Referring Unavailable Cabezas, Estrella Attending Unavailable Cabezas, Estrella Consulting Unavailable Cabezas, Estrella Admitting Unavailable Bursley, Fabricio Primary Care Unavailable Mae Horton Admitting Unavailable Mae Horton Attending Unavailable Mae Horton Consulting Unavailable Bursley, Fabricio Primary Care Unavailable Alex Mercado Attending Unavailable Bursley, Fabricio Primary Care Unavailable Juan Lynch Attending Unavailable Bursley, Fabricio Primary Care Unavailable Patricia 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, Roxann Attending Unavailable Patricia 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, Roxann Referring Unavailable Isckarus, Carmellaour Attending Unavailable Isckarus, Mansour Referring Unavailable Bursley, Fabricio Primary Care Unavailable Bursley, Fabricio Primary Care Unavailable Audie 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, Sharda Attending Unavailable Audie 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, Sharda Referring Unavailable Cabezas, Estrella Referring Unavailable Man Polo Attending Unavailable Bursley, Fabricio Primary Care Unavailable Bursley, Fabricio Primary Care Unavailable eRg Layne Attending Unavailable Bursley, Fabricio Primary Care Unavailable Bursley, Fabricio Referring Unavailable Audie 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, Sharda Attending Unavailable Bursley, Fabricio Primary Care Unavailable Bursley, Fabricio Referring Unavailable Reg Layne Attending Unavailable Bursley, Fabricio Referring Unavailable Bursley, Fabricio Primary Care Unavailable Robotham, Yeimi Attending Unavailable Michi, Jassi Attending Unavailable Michi, Jassi Consulting Unavailable Bursley, Fabricio Primary Care Unavailable Robotham, Yeimi Referring Unavailable Robotham, Yeimi Attending Unavailable Isckarus, Mansour Referring Unavailable Isckarus, Mansour Attending Unavailable Bursley, Fabricio Primary Care Unavailable Bursley, Fabricio Primary Care Unavailable Robotham, Yeimi Attending Unavailable Robotham, Yeimi Consulting Unavailable Robotham, Yeimi Referring Unavailable Bursley, Fabricio Primary Care Unavailable Reg Layne Attending Unavailable Bursley, Fabricio Primary Care Unavailable Mae Horton Attending Unavailable Mae Horton Admitting Unavailable Bursley, Fabricio Primary Care Unavailable Shun, Az Attending Unavailable ShunAz Referring Unavailable Bursley, Fabricio Primary Care Unavailable Gomez 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, Roxann Attending Unavailable Gomez 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, Roxann Referring Unavailable Isckarus, Mansour Attending Unavailable Bursley, Fabricio Primary Care Unavailable Gomez 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, Roxann Referring Unavailable Bursley, Fabricio Primary Care Unavailable Bursley, Fabricio Referring Unavailable Audie 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, Sharda Attending Unavailable Bursley, Fabricio Referring Unavailable Bursley, Fabricio Primary Care Unavailable Rachael Charles Attending Unavailable Bursley, Fabricio Referring Unavailable Bursley, Fabricio Primary Care Unavailable Audie 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, Sharda Attending Unavailable Isckarus, Mansour Attending Unavailable Bursley, Fabricio Primary Care Unavailable Bursley, Fabricio Referring Unavailable Bursley, Fabricio Primary Care Unavailable Bursley, Fabricio Referring Unavailable Gomez 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, Roxann Attending Unavailable Bursley, Fabricio Primary Care Unavailable Bursley, Fabricio Referring Unavailable Gomez 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, Roxann Attending Unavailable Bursley, Fabricio Referring Unavailable Bursley, Fabricio Primary Care Unavailable Audie 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, Sharda Attending Unavailable Isckarus, Mansour Attending Unavailable Bursley, Fabricio Referring Unavailable Bursley, Fabricio Primary Care Unavailable Isckarus, Mansour Attending Unavailable Bursley, Fabricio Primary Care Unavailable Bursley, Fabricio Referring Unavailable Isckarus, Mansour Attending Unavailable Bursley, Fabricio Primary Care Unavailable Bursley, Fabricio Referring Unavailable Bursley, Fabricio Primary Care Unavailable Bursley, Fabricio Referring Unavailable Audie 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, Sharda Attending Unavailable Bursley, Fabricio Primary Care Unavailable Santi Hurd Attending Unavailable Allergies Allergy Classification Reported Allergen(s) Allergy Type Date of Onset Reaction(s) Facility (20 sources) Angiotensin Converting Enzyme (Meagan) Inhibitors; Translations: [MEAGAN INHIBITORS] Allergy to substance 8 Rash [facility] Work Phone: (20 sources) Codeine; Translations: [CODEINE] Drug Allergy 8 Vomiting, Other: See Comments [facility] Work Phone: (18 sources) predniSONE Drug Allergy 2 Other [facility] Comment on above: patient does not rec all the reaction, just states she can't take prednisone. (20 sources) walnut allergenic extract; Translations: [WALNUT] Drug Allergy 8 Unknown [facility] (19 sources) Tyhpfyh-Cms-Jwf Reductase Inhibitor; Translations: [Noqimcn-Unc-Ge a Reductase Inhibitor] Propensity to adverse reactions 2 cramps [facility] (20 sources) ezetimibe; Translations: [EZETIMIBE] Drug Allergy 1 Myalgia [facility] Work Phone: (2 sources) HMG-CoA reductase inhibitor; Translations: [RODSMKA-FNS-WM A REDUCTASE INHIBITORS] Drug Intolerance 8 Myalgia [facility] Work Phone: (20 sources) Mirtazapine; Translations: [MIRTAZAPINE] Drug Allergy 1 Other: See Comments [facility] Work Phone: (20 sources) HMG-CoA reductase inhibitor Drug Intolerance 8 Myalgia [facility] Work Phone: (1 source) Codeine Drug Allergy [facility] (1 source) Codeine Drug Allergy 5 [facility] (1 source) predniSONE Drug Allergy 5 [facility] (1 source) walnut Drug allergy (disorder) 5 [facility] Medications Current Medications Medication Drug Class(es) Dates Sig (Normalized) Sig (Original) [id number] 200 actuat albuterol 0.09 mg/actuat metered dose [...] 30 capsule 01/26/2025 02/05/2025 Active Disability Placard (15 sources) Start: 09-15-20 Disability Placard Active 0 [...] 0 .Route .MEDSUPPLY 1 September 15, 2020 12:00am Expires 09/09/2025 docusate [...] oral capsule (20 sources) Anti-epileptic Agent Start: 04-13-2025 Gabapenti n 400 mg capsule Active 600 mg PO THREE TIMES A DAY April 13, 2025 11:10am nerve pain Start: 07-16-2020 End: 04-13-2025 take 1 capsule by mouth three times daily Gabapentin 400 MG capsule Discontinued 400 mg PO THREE TIMES A DAY July 16, 2020 12:00am April 13, 2025 11:10am nerve pain take 1 capsule by [facility] twice daily gabapentin (NEURONTIN) 400 mg capsule Take 400 [...] mg/ml / prilocaine 25 mg/ml topical cream (10 sources) Antiarrhythmic, Amide Local Anesthetic Start: 12-15-2024 Lidocaine-Prilocaine 2.5-2.5 % cream Active 1 NMA TOPICAL ONCE as needed for port access December 15, 2024 12:00am 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 120 mL 1 11/17/2020 Active Comment on above: Apply 1 mL to affect ed area twice daily. mirtazapine 15 mg oral tablet (10 sources) Start: 12-29-2024 take 1 tablet by mouth at bedtime Mirtazapine 15 mg tablet Active 15 mg PO AT BEDTIME 30 December 29, 2024 12:00am Disturbance in sleep behavior Sleep disorder, unspecified sleep Start: 12-29-2024 morphine sulfate 15 mg oral tablet (1 source) Opioid Agonist Start: 04-13-2025 take 1 tablet by mouth every four to six hours as needed Morphine 15 mg tablet Active 15 mg PO EVERY 4-6 HOURS as needed 0 April 13, 2025 12:00am mv,jaci,iron,mn/fol ic acid/chol (MOIE-KXWB-VLVIJ, PABA, ORAL) (20 sources) take 1 tablet by mouth once daily mv,jaci,iron,mn/fol ic acid/chol (OXDX-BGYN-RIZVH, PABA, ORAL) Take 1 tablet by mouth once daily. Active take 1 tablet by mouth once nica y mv,jaci,iron,mn/folic acid/chol (UETB-WRAM-IOPCY, PABA, ORAL) Take 1 tablet by mouth [...] on above: Take [address] capsule by mo [facility] twice daily. Pnv No.470-Fb-Ck6-Dha-E pa-Fish ( Gummies) 400 mcg-35 mg- 25 mg-5 mg tablet,chewable (15 sources) Start: 01-05-2022 take 2 tablets by mouth once daily Pnv No.686-At-Xw0-Dha -Epa-Fish ( Gummies) 400 mcg-35 mg- 25 mg-5 mg tablet,chewable Active 2 TABLET PO DAILY January 05, 2022 1:15pm Start: 01-05-2022 End: 09-04-2022 Pnv No.719-Ry-Rq8-Dha-Epa-Fi sh ( Gummies) 400 mcg-35 mg- 25 mg-5 mg tablet,chewable Discontinued 2 {tbl} PO DAILY January 05, 2022 12:00am September 04, 2022 1:49pm Start: 01-05-2022 End: 09-04-2022 take 2 tablets by mouth once daily Pnv No.138-Os-Ax2-Kwt-Iza-Txdh ( Gummies) 400 mcg-35 mg- 25 mg-5 mg tablet,chewable Discontinued 2 TABLET PO DAILY January 05, 2022 12:00am September 04, 2022 1:49pm Start: 01-05-2022 End: 09-04-2022 take 2 tablets by mouth once daily Pnv No.803-Jg-Qe8-Toq-Gxs-Dbgj ( Gummies) 400 mcg-35 mg- 25 mg-5 [...] 2022 1:19pm prochlorperazine 10 mg oral tablet (10 sources) Phenothiazine Start: 12-15-2024 take 1 tablet by mouth every six hours as needed for nausea and vomiting Prochlorperazine Maleate 10 mg tablet Active 10 mg PO EVERY 6 HOURS as needed for nausea and vomiting December 15, 2024 12:00am Chemotherapy-induced nausea and vomiting Nausea with vomiting, unspecified Adverse effect of antineoplastic and immunosuppressive drugs, initial encounter Druxssf-Kaxw-Jtfwj-Or eg-Capryl (4 sources) Start: 01-05-2022 take 2 capsules by mouth once daily Fmkraqx-Akam-Prani-Oreg- Capryl Active 2 CAP PO DAILY January 05, 2022 1:15pm Start: 01-05-2022 End: 05-09-2022 take 2 capsules by mouth once daily Yazpijc-Vfuf-Bmjce-Oreg-Capryl Discontin ued 2 CAP PO DAILY January 05, 2022 12:00am May 09, 2022 10:07am Start: 01-05-2022 End: 05-09-2022 take 2 capsules by mouth once daily Rxzgaww-Iofu-Tqrfd-Oreg-Capryl Discontin ued 2 CAP PO DAILY January 04, 2022 11:00pm May 09, 2022 9:07am Vitamin B Complex (B Complex-Vitamin B12) tablet (15 sources) Start: 01-05-2022 take 1 tablet by [...] / oxyCODONE hydrochloride 5 mg oral tablet (18 sources) Opioid Agonist Start: 09-15-2020 End: 05-28-2024 [...] / ipratropium bromide 0.167 mg/ml inhalation solution (17 sources) Anticholinergic, beta2-Adrenergic Agonist Start: 05-09-2022 End: [...] 2022 12:00am allopurinol 300 mg oral tablet (12 sources) Xanthine Oxidase Inhibitor Start: 11-24-2024 End: 12-11-2024 take 1 tablet by mouth once daily Allopurinol 300 mg tablet Discontinued 300 mg PO daily 7 0 November 24, 2024 12:00am December 11, 2024 8:20am amoxicillin 875 mg / clavulanate 125 mg oral tablet (18 sources) Penicillin-class Antibacterial Start: 11-17-2021 End: 05-09-2022 [...] 11:18am COVID-19 azithromycin 250 mg oral tablet (13 sources) Macrolide Antimicrobial Start: 09-02-2024 End: 11-03-2024 take 2-5 tablets by mouth once daily Azithromycin 250 mg tablet Discontinued 0 PO .COMPLEX 6 0 September 02, 2024 1:00am November 03, 2024 12:18pm take 500 mg today (day 1), then 250 mg for 4 days (days 2-5) PO Calcium (10 sources) Phosphate Binder, Calcium Start: 05-28-2024 End: [...] Start: 05-28-2024 take 1 capsule by mo [facility] once daily Calcium 600 mg capsule Active [...] on above: Take 1,000 mg by [facility] once daily. cholecalciferol 0.025 mg oral capsule [...] twice daily. dexamethasone 1 mg oral tablet (20 sources) Corticosteroid Start: 12-29-2024 End: 12-29-2024 take [...] 10:48am doxycycline hyclate 100 mg oral tablet (18 sources) Tetracycline-class Drug Start: 11-17-2021 End: 05-09-2022 [...] completed) Start: 05-17-2021 take 1 capsule by [facility] once daily, then take 1 capsule by mouth once daily INV VITAMIN D3 5000 UNITS CAPSULE (IRB [id number]) Take 1 capsule by mouth once daily. For Investigational Drug Use Only. PI: Krystin Rodrigues, PhD. Take one capsule by mouth daily for 3 months prior to surgery and 3 months after surgery. 90 capsule 3 05/17/2021 Active Comment on above: Take 1 capsule by [facility] once daily. For Investigational Drug Use Only. PI: Krystin Rodrigues, PhD. Take one capsule by mouth daily for 3 months prior to surgery and 3 months after surgery. levoFLOXacin 750 mg oral tablet (17 sources) Quinolone Antimicrobial Start: 09-04-20 End: 09-11-20 take 1 tablet by mouth every twenty-four hours Levofloxacin 750 mg tablet Discontinued 750 mg PO Q24H 7 7 0 September 04, 2022 1:00am September 10, 2022 1:00am September 11, 2022 1:04am losartan potassium 50 mg oral tablet (20 sources) Angiotensin 2 Receptor Juany Start: 01-14-20 End: 10-12-19 take 0.5 tablet by mouth once daily losartan (COZAAR) 50 mg tablet Indications: Essential hypertension Take 0.5 tablets by mouth once daily. 45 tablet 1 03/31/2025 04/15/2025 Discontinued Start: 11-12-2024 take 1 tablet by [facility] [...] 1 tablet by [facility] once daily. mv,calcium,min/iron /folic/vitK (ONE-A-DAY WOMEN'S COMPLETE ORAL) (9 sources) End: 08-22-2022 take 2 capsules by mouth once daily mv,calcium,min/iron/fo lic/vitK (ONE-A-DAY WOMEN'S COMPLETE ORAL) Take 2 capsules [...] on above: Take 2 capsules by m out once daily. nystatin [id number] unt/ml oral suspension (12 sources) Polyene Antifungal Start: 11-24-2024 End: 12-11-2024 [...] every 6 hours as needed for nausea/vomiting. oxyCODONE hydrochloride 10 mg oral tablet (20 sources) Opioid Agonist Start: 01-10-20 End: 04-13-20 take 1 tablet by mouth every four hours as needed for pain Oxycodone 10 mg tablet Discontinued 10 mg PO Q4H as needed for pain January 09, 2025 12:00am April 13, 2025 11:10am Start: 11-15-2024 End: 12-22-2024 take 2 tablets [...] day as needed for pain. 0 Active red yeast rice 600 mg oral tablet (20 sources) Start: 01-26-2022 End: 05-28-2024 take 1 tablet by mouth once daily [...] on above: Take 2 tablets by mo [facility] once daily. sertraline 50 mg oral tablet (9 sources) Serotonin Reuptake Inhibitor Start: 1 End: 2 take 1 tablet by mouth once daily sertraline (ZOLOFT) 50 mg tablet Indications: Anxiety with depression Take 1 tablet by mouth once daily. 30 tablet 2 04/20/2021 08/22/2022 Discontinued (Other) Comment on above: Take 1 tablet by [facility] once daily. traZODone hydrochloride 50 mg oral tablet (10 sources) Serotonin Reuptake Inhibitor Start: 5 End: 5 take 1 tablet by mouth at bedtime Trazodone 50 mg tablet Discontinued 50 mg PO AT BEDTIME December 29, 2024 12:00am December 29, 2024 2:50pm Start: 12-29-2024 End: 12-29-2024 Esvtukjp-Thxw-Gtxiw-Oreg-Cap ry (1 source) Start: 01-05-2022 End: 05-09-2022 take 2 capsules by mouth once daily Chlrafmx-Yzkq-Uyvdn-Oreg-Capry Discontinued 2 CAP PO DAILY January 05, 2022 12:00am May 09, 2022 10:07am Uihpowxu-Mrzc-Ohwbs-Oreg-Cap ry 100 mg-150 mg- 50 mg-150 mg capsule (10 sources) Start: 01-05-2022 End: 05-09-2022 take 1 capsule by mouth once daily Equfkylv-Ucqb-Pudaf-Oreg-Capry 100 mg-150 mg- 50 mg-150 mg capsule [...] anxiety disorders] Onset: 1 04-20-2021 Chronic Asthma (12 sources) Asthma; Translations: [Unspecified asthma, uncomplicated] 11-24-2024 [...] lobes. Chronic obstructive pulmonary disease and bronchiectasis (18 sources) Bronchitis; Translations: [Bronchitis, not specified as acute or chronic] 11-20-2021 Episodic Conduction disorders (4 sources) First degree atrioventricular block; Translations: [Atrioventricular block, first degree] Onset: 4 Chronic Deficiency and other anemia (6 sources) Anemia; Translations: [Anemia, unspecified] 04-06-2025 Episodic Deficiency and other anemia (2 sources) Anemia, unspecified; Translations: [Anemia, unspecified] Onset: 5 Episodic Disorders of lipid metabolism (20 sources) [...] Translations: [Gross hematuria] Episodic Heart valve disorders (12 sources) Heart murmur; Translations: [Cardiac murmur, unspecified] [...] other respiratory manifestations] Episodic Maintenance chemotherapy; radiotherapy (20 sources) Patient encounter status; Translations: [Encounter for antineoplastic chemotherapy] 12-16-2024 Chronic Malignant neoplasm without specification of site (20 sources) Carcinoma of lung; 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] Onset: 5 11-25-2024 Chronic Menopausal disorders (1 source) Postmenopausal bleeding; Translations: [Postmenopausal bleeding] Chronic Mycoses (2 sources) Dermatophytosis; Translations: [Tinea corporis] Episodic Nausea and vomiting (19 sources) Nausea; Translations: [Nausea] Onset: 5 11-15-2021 Episodic Osteoarthritis (12 sources) Arthritis; Translations: [Unspecified osteoarthritis, unspecified site] 11-24-2024 Chronic Other circulatory disease (20 sources) Device in situ; Translations: [Presence of other vascular implants and grafts] 12-22-2024 Chronic Other connective tissue disease (1 source) Pain of toe of left foot; Translations: [Pain in left toe(s)] Episodic Other connective tissue disease (1 source) Cramp; Translations: [Cramp and spasm] 01-08-2024 Episodic Other connective tissue disease (6 sources) Monoparesis - leg; Translations: [Other symptoms and signs involving the musculoskeletal system] 04-06-2025 Episodic Other connective tissue disease (1 source) Other symptoms and signs involving the musculoskeletal system; Translations: [Other symptoms and signs involving the musculoskeletal system] Onset: Episodic Other ear and sense organ disorders (12 sources) Hearing loss; Translations: [Unspecified hearing loss, unspecified ear] 11-24-2024 Chronic Other female genital disorders (1 source) Pain in female genitalia on intercourse; Translations: [Unspecified dyspareunia] Chronic Other female genital disorders (1 source) Vulval irritation; Translations: [Other specified noninflammatory disorders of vulva and perineum] Episodic Other gastrointestinal disorders (17 sources) Acute diarrhea; Translations: [Diarrhea, unspecified] 09-21-2022 Episodic Other gastrointestinal disorders (5 sources) Diarrhea; Translations: [Diarrhea, unspecified] 11-15-2021 Episodic Other liver diseases (5 sources) Liver mass; Translations: [Hepatomegaly, not elsewhere classified] 10-17-2024 Episodic Other liver diseases (13 sources) Enzyme level - finding; Translations: [Elevated transaminase measurement] 11-23-2024 Episodic Other liver diseases (20 sources) High lipase level in serum; Translations: [Abnormal levels of other serum enzymes] 11-12-2024 Episodic Other liver diseases (20 sources) Jaundice; Translations: [Unspecified jaundice] 11-24-2024 Episodic Other liver diseases (1 source) Unspecified jaundice; Translations: [Unspecified jaundice] Onset: Episodic Other lower respiratory disease (15 sources) Fibrosis of lung; Translations: [Pulmonary fibrosis, unspecified] 03-13-2023 Chronic Other lower respiratory disease (1 source) Pulmonary fibrosis, unspecified; Translations: [Postinflammatory pulmonary fibrosis] 03-13-2023 Chronic Other lower respiratory disease (18 sources) Respiratory insufficiency; Translations: [Other abnormalities of breathing] 11-12-2021 Episodic Other lower respiratory disease (20 sources) Hypoxia; Translations: [Hypoxemia] 09-15-2020 Episodic Other lower respiratory disease (1 source) Other abnormalities of breathing; Translations: [Other respiratory abnormalities] Episodic Other lower respiratory disease (17 sources) Acute lower respiratory tract infection; Translations: [Unspecified acute lower respiratory infection] 09-21-2022 Episodic Other lower respiratory disease (1 source) Cough; Translations: [Cough] 11-15-2021 Episodic Other lower respiratory disease (1 source) Lung mass; Translations: [Other nonspecific abnormal finding of lung field] 11-12-2024 Episodic Other lower respiratory disease (20 sources) Dyspnea; Translations: [Shortness of breath] 03-13-2024 Episodic Other non-traumatic joint disorders (1 source) Pain in left hip; Translations: [Pain in left hip] Onset: 5 Episodic Other nutritional; endocrine; and metabolic disorders [...] caused by tuberculosis or sexually transmitted disease) (19 sources) Pneumonia; Translations: [Pneumonia, unspecified organism] 11-25-2021 [...] 11 cmH2O Residual codes; unclassified (1 source) Past history of procedure; Translations: [Other specified postprocedural states] Episodic Residual codes; unclassified (1 source) Pain; Translations: [Pain, unspecified] 01-24-2023 Episodic Residual codes; unclassified (20 sources) Bilateral lower limb edema; Translations: [Localized edema] 12-02-2024 Episodic Residual codes; unclassified (10 sources) Disturbance in sleep behavior; Translations: [Sleep disorder, unspecified] 12-29-2024 Episodic Respiratory failure; insufficiency; arrest (adult) (12 sources) Chronic hypoxemic respiratory failure; Translations: [Chronic respiratory failure with hypoxia] 11-24-2024 Chronic Secondary malignancies (20 sources) Secondary malignant neoplasm of liver; 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] 11-12-2024 Chronic Secondary malignancies (13 sources) Secondary malignant neoplastic disease; Translations: [Secondary malignant neoplasm of unspecified site] 11-23-2024 Chronic Secondary malignancies (20 sources) Regional lymph node metastasis present ; Translations: [Secondary and unspecified malignant neoplasm of lymph node, unspecified] Chronic Secondary malignancies (20 sources) Secondary malignant neoplasm of bone; Translations: [Secondary malignant neoplasm of bone] 11-24-2024 Chronic Secondary malignancies (9 sources) Secondary malignant neoplasm of lymph node; Translations: [Secondary and unspecified malignant neoplasm of lymph node, unspecified] 01-13-2025 Chronic Secondary malignancies (3 sources) Secondary malignant neoplasm of bone; Translations: [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)] Onset: 5 Chronic Secondary malignancies (3 sources) Secondary malignant neoplasm of liver and intrahepatic bile duct; Translations: [Metastasis to liver (HCC)] Onset: 5 Chronic Secondary malignancies (2 sources) Secondary and unspecified malignant neoplasm of lymph node, unspecified; Translations: [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)] Onset: 04-29-202 5 Chronic Spondylosis; intervertebral disc disorders; other back [...] unspecified] Onset: 8 11-14-2017 Chronic Thyroid disorders (12 sources) Disorder of thyroid gland; Translations: [Disorder of thyroid, unspecified] 11-24-2024 Episodic Comment on above: ON MED Unclassified (17 sources) High grade neuroendocrine carcinoma of lung; Translations: [C7A.1 - Malignant poorly differentiated neuroendocrine tumors] Unclassified (10 sources) Malignant neoplasm metastatic to bone Unclassified (7 sources) 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 Unclassified [...] malignant neoplasm of lymph node, unspecified Unclassified (7 sources) C34.12 - Malignant neoplasm of upper lobe, left bronchus or lung,C79.51 - Secondary malignant neoplasm of bone,C7A.1 - Malignant poorly differentiated neuroendocrine tumors,C77.9 - Secondary and unspecified malignant neoplasm of lymph node, unspecified,C78.7 - Secondary malignant neoplasm of liver and intrahepatic bile duct Unclassified (1 source) Low back pain, unspecified; Translations: [Low back pain, unspecified] Onset: 5 Viral infection (19 sources) Disease caused by 2019-nCoV; Translations: [COVID-19] [...] source) Weakness; Translations: [Weakness] Onset: 12-04-2024 Episodic Nonspecific chest pain (20 sources) Chest pain; Translations: [Chest pain, unspecified] Onset: 01-12-2025 01-09-2025 Episodic Other aftercare (1 source) Encounter for [...] of lung field] Onset: 11-15-2024 Episodic Other screening for suspected conditions (not [...] 01-24-2023 Episodic Residual codes; unclassified (1 source) Sleep disorder, unspecified; Translations: [Sleep disorder, unspecified] Onset: 12-29-2024 Episodic Residual codes; unclassified (1 source) Localized edema; Translations: [Localized edema] Onset: 12-10-2024 Episodic Results Test Name Value Interpretation Reference Range Facility Radiation Oncology Visiton 0 04-13-2025 Radiation Oncology Visit Normal [facility] Absolute lymphocyte countOrd ered [facility]: [facility] 04-[facility]-2025 Lymphocytes Auto (Unsp spec) [#/Vol] 0.44 10*3/uL Low 0.83-4.51 [facility] Absolute neutrophil countOrd ered By: [facility] on 04-06-2025 Neutrophils (Bld) [#/Vol] 2.4 10*3/uL 2.0-7.7 [facility] Anion gap in Serum or Plasma Ordered By: [facility] on 04-06-2025 Anion gap [Moles/Vol] 12 mmol/L 5-15 [facility] Automated lymphocyte count a s percentage of total leukocytesOrdered By: [facility] Lymphocytes/100 WBC Auto (Unsp spec) 11.3 % Low 19-41 [facility] BUN/creatinine ratioOrdered By: [facility] on 04-06-2025 Urea nitrogen/Creatinine [Mass ratio] 5.6 mg/mg Low 10-20 [facility] Basophil percentageOrdered B y: [facility] on 04-06-2025 Basophils/100 WBC (Bld) 0.8 % 0-1 [facility] Bilirubin, totalOrdered By: [facility] Jim on 04-06-2025 Bilirubin [Mass/Vol] 0.26 mg/dL 0.00-1.30 [facility] CBC W/Diff, Automatedon - Absolute Neut Normal 2.0-7.7 [facility] Comment on above: Result Comment: DUPL ICATE ORDER Performed By: #### L 500.4050, L100.0100 ####[facility] [address] [place], [place], [id number] HCT Normal 37-47 [facility] Comment on above: Result Comment: DUPL ICATE ORDER Performed By: #### L 500.4050, L100.0100 ####[facility] [address] [place], [address] HGB Normal 12.0-15.0 [facility] Comment on above: Result Comment: DUPL ICATE ORDER Performed By: #### L 500.4050, L100.0100 ####[facility] [address] [place], [address] MCH Normal 27.0-32.0 [facility] Comment on above: Result Comment: DUPL ICATE ORDER Performed By: #### L 500.4050, L100.0100 ####[facility] [address] [place], [address] MCHC Normal 32-36 [facility] Comment on above: Result Comment: DUPL ICATE ORDER Performed By: #### L 500.4050, L100.0100 ####[facility] [address] [place], [address] MCV Normal 81-99 [facility] Comment on above: Result Comment: DUPL ICATE ORDER Performed By: #### L 500.4050, L100.0100 ####[facility] [address] [place], [address] NEUT% Normal 47-70 [facility] Comment on above: Result Comment: DUPL ICATE ORDER Performed By: #### L 500.4050, L100.0100 ####[facility] [address] [place], [address] PLT Normal 150-450 [facility] Comment on above: Result Comment: DUPL ICATE ORDER Performed By: #### L 500.4050, L100.0100 ####[facility] [address] [place], [address] RBC Normal 4.2-5.4 [facility] Comment on above: Result Comment: DUPL ICATE ORDER Performed By: #### L 500.4050, L100.0100 ####[facility] [address] [place], [address] RDW CV Normal 11.6-14.6 [facility] Comment on above: Result Comment: DUPL ICATE ORDER Performed By: #### L 500.4050, L100.0100 ####[facility] [address] [place], [address] RDW SD Normal 35.1-43.9 [facility] Comment on above: Result Comment: DUPL ICATE ORDER Performed By: #### L 500.4050, L100.0100 ####[facility] [address] [place], [address] WBC Normal 4.4-11.0 [facility] Comment on above: Result Comment: DUPL ICATE ORDER Performed By: #### L 500.4050, L100.0100 ####[facility] [address] [place], [address] Absolute Lymph 0.44 X10 3/uL Low 0.83-4.51 [facility] Comment on above: Performed By: #### L 501.5200, L501.2300, L100.0100, L500.4050 ####[facility] [address] [place], [address] Absolute Neut 2.4 X10 3/uL Normal 2.0-7.7 [facility] Comment on above: Performed By: #### L 501.5200, L501.2300, L100.0100, L500.4050 ####[facility] [address] [place], [address] Basophils/100 WBC (Bld) 0.8 % Normal 0-1 [facility] Comment on above: Performed By: #### L 501.5200, L501.2300, L100.0100, L500.4050 ####[facility] [address] [place], [address] Eosinophils/100 WBC (Bld) 0.5 % Normal 0-5 [facility] Comment on above: Performed By: #### L 501.5200, L501.2300, L100.0100, L500.4050 ####[facility] [address] [place], [address] Erythrocyte distribution width (RBC) [Ratio] 17.2 % High 11.6-14.6 [facility] Comment on above: Performed By: #### L 501.5200, L501.2300, L100.0100, L500.4050 ####[facility] [address] [place], [address] Hematocrit (Bld) [Volume fraction] 25.5 % Low 37-47 [facility] Comment on above: Performed By: #### L 501.5200, L501.2300, L100.0100, L500.4050 ####[facility] [address] [place], [address] Hemoglobin (Bld) [Mass/Vol] 8.3 g/dL Low 12.0-15.0 [facility] Comment on above: Performed By: #### L 501.5200, L501.2300, L100.0100, L500.4050 ####[facility] [address] [place], [address] IG% 0.800 Normal 0.0-0.9 [facility] Comment on above: Result Comment: IG% - Immature Granulocytes (promyelocytes, myelocytes andmetamyelocytes) > 1% indicates that a LEFT SHIFT is Present. Performed By: #### L 501.5200, L501.2300, L100.0100, L500.4050 ####[facility] [address] [place], [address] Lymphocytes/100 WBC (Bld) 11.3 % Low 19-41 [facility] Comment on above: Performed By: #### L 501.5200, L501.2300, L100.0100, L500.4050 ####[facility] [address] [place], [address] MCH (RBC) [Entitic mass] 33.3 pg High 27.0-32.0 [facility] Comment on above: Performed By: #### L 501.5200, L501.2300, L100.0100, L500.4050 ####[facility] [address] [place], [address] MCHC (RBC) [Mass/Vol] 32.5 g/dL Normal 32-36 [facility] Comment on above: Performed By: #### L 501.5200, L501.2300, L100.0100, L500.4050 ####[facility] [address] [place], [address] MCV (RBC) [Entitic vol] 102.4 fL High 81-99 [facility] Comment on above: Performed By: #### L 501.5200, L501.2300, L100.0100, L500.4050 ####[facility] [address] [place], [address] Monocytes/100 WBC (Bld) 24.2 % High 0-10 [facility] Comment on above: Performed By: #### L 501.5200, L501.2300, L100.0100, L500.4050 ####[facility] [address] [place], [address] Neutrophils/100 WBC (Bld) 62.4 % Normal 47-70 [facility] Comment on above: Performed By: #### L 501.5200, L501.2300, L100.0100, L500.4050 ####[facility] [address] [place], [address] Nucleated RBC (Bld) [#/Vol] 0 10*3/uL Normal 0-5 [facility] Comment on above: Performed By: #### L 501.5200, L501.2300, L100.0100, L500.4050 ####[facility] [address] [place], [address] Platelet mean volume (Bld) [Entitic vol] 10.3 fL Normal 6.2-12.0 [facility] Comment on above: Performed By: #### L 501.5200, L501.2300, L100.0100, L500.4050 ####[facility] [address] [place], [address] Platelets (Bld) [#/Vol] 132 10*3/uL Low 150-450 [facility] Comment on above: Performed By: #### L 501.5200, L501.2300, L100.0100, L500.4050 ####[facility] [address] [place], [address] RBC (Bld) [#/Vol] 2.49 10*6/uL Low 4.2-5.4 [facility] Comment on above: Performed By: #### L 501.5200, L501.2300, L100.0100, L500.4050 ####[facility] [address] [place], [address] RDW SD 63.7 fl High 35.1-43.9 [facility] Comment on above: Performed By: #### L 501.5200, L501.2300, L100.0100, L500.4050 ####[facility] [address] [place], [address] WBC (Bld) [#/Vol] 3.9 10*3/uL Low 4.4-11.0 [facility] Comment on above: Performed By: #### L 501.5200, L501.2300, L100.0100, L500.4050 ####[facility] [address] [place], [address] Carbon dioxide, total [Moles /volume] in Central venous bloodOrdered By: Sherice Fernandez on 04-06-2025 CO2 [Moles/Vol] 24.3 mmol/L 21.0-32.0 [facility] Chloride assayOrdered By: Melva Fernandez on 04-06-2025 Chloride [Moles/Vol] 107 mmol/L 98-108 [facility] Comprehensive Metabolic Prof ilon 04-06-2025 Albumin [Mass/Vol] 3.8 g/dL Normal 3.4-4.8 [facility] Comment on above: Performed By: #### L 501.5200, L501.2300, L100.0100, L500.4050 ####[facility] [address] [place], [address] Albumin/Globulin [Mass ratio] 1.4 {ratio} Normal 0.9-2.4 [facility] Comment on above: Performed By: #### L 501.5200, L501.2300, L100.0100, L500.4050 ####[facility] [address] [place], [address] ALK PHOS 163 U/L High 35-104 [facility] Comment on above: Performed By: #### L 501.5200, L501.2300, L100.0100, L500.4050 ####[facility] [address] [place], [address] ALT [Catalytic activity/Vol] 24 U/L Normal <=34 [facility] Comment on above: Performed By: #### L 501.5200, L501.2300, L100.0100, L500.4050 ####[facility] [address] [place], [address] AST [Catalytic activity/Vol] 100 U/L High <=31 [facility] Comment on above: Performed By: #### L 501.5200, L501.2300, L100.0100, L500.4050 ####[facility] [address] [place], [address] Bilirubin [Mass/Vol] 0.26 mg/dL Normal 0.00-1.30 [facility] Comment on above: Performed By: #### L 501.5200, L501.2300, L100.0100, L500.4050 ####[facility] [address] [place], [address] BUN/CRE 5.6 RATIO Low 10-20 [facility] Comment on above: Performed By: #### L 501.5200, L501.2300, L100.0100, L500.4050 ####[facility] [address] [place], [address] Calcium [Mass/Vol] 9.7 mg/dL Normal 7.6-11.0 [facility] Comment on above: Performed By: #### L 501.5200, L501.2300, L100.0100, L500.4050 ####[facility] [address] [place], [address] Chloride [Moles/Vol] 107 mmol/L Normal 98-108 [facility] Comment on above: Performed By: #### L 501.5200, L501.2300, L100.0100, L500.4050 ####[facility] [address] [place], [address] CO2 [Moles/Vol] 24.3 mmol/L Normal 21.0-32.0 [facility] Comment on above: Performed By: #### L 501.5200, L501.2300, L100.0100, L500.4050 ####[facility] [address] [place], [address] Creatinine [Mass/Vol] 0.88 mg/dL Normal 0.70-1.20 [facility] Comment on above: Performed By: #### L 501.5200, L501.2300, L100.0100, L500.4050 ####[facility] [address] [place], [address] ECRCL 53.57 ml/min Normal 50-250 [facility] Comment on above: Performed By: #### L 501.5200, L501.2300, L100.0100, L500.4050 ####[facility] [address] [place], [address] GAP 12 Normal 5-15 [facility] Comment on above: Performed By: #### L 501.5200, L501.2300, L100.0100, L500.4050 ####[facility] [address] [place], [address] GFR/1.73 sq M.predicted among non-blacks MDRD (S/P/Bld) [Vol rate/Area] 71 mL/min/{1.73_m2} Normal >60 [facility] Comment on above: Result Comment: mL/m in/1.73m2 CKD-EPI Creatinine Equation (2020) Performed By: #### L 501.5200, L501.2300, L100.0100, L500.4050 ####[facility] [address] [place], [address] Globulin (S) [Mass/Vol] 2.7 g/dL Normal 2.2-4.2 [facility] Comment on above: Performed By: #### L 501.5200, L501.2300, L100.0100, L500.4050 ####[facility] [address] [place], [address] Glucose [Mass/Vol] 135 mg/dL High 70-99 [facility] Comment on above: Performed By: #### L 501.5200, L501.2300, L100.0100, L500.4050 ####[facility] [address] [place], [address] Potassium [Moles/Vol] 3.3 mmol/L Normal 3.3-5.1 [facility] Comment on above: Performed By: #### L 501.5200, L501.2300, L100.0100, L500.4050 ####[facility] [address] [place], [address] Sodium [Moles/Vol] 143 mmol/L Normal 133-145 [facility] Comment on above: Performed By: #### L 501.5200, L501.2300, L100.0100, L500.4050 ####[facility] [address] [place], [address] T PROT 6.5 g/dL Normal 5.9-8.4 [facility] Comment on above: Performed By: #### L 501.5200, L501.2300, L100.0100, L500.4050 ####[facility] [address] [place], [address] Urea nitrogen [Mass/Vol] 5 mg/dL Normal 4-19 [facility] Comment on above: Performed By: #### L 501.5200, L501.2300, L100.0100, L500.4050 ####[facility] [address] [place], [address] ALB Normal 3.4-4.8 [facility] Comment on above: Result Comment: DUPL ICATE ORDER Performed By: #### L 500.4050, L100.0100 ####[facility] [address] [place], [address] ALK PHOS Normal 35-104 [facility] Comment on above: Result Comment: DUPL ICATE ORDER Performed By: #### L 500.4050, L100.0100 ####[facility] [address] [place], [address] ALT Normal <=34 [facility] Comment on above: Result Comment: DUPL ICATE ORDER Performed By: #### L 500.4050, L100.0100 ####[facility] [address] [place], [address] AST Normal <=31 [facility] Comment on above: Result Comment: DUPL ICATE ORDER Performed By: #### L 500.4050, L100.0100 ####[facility] [address] [place], [address] BUN Normal 4-19 [facility] Comment on above: Result Comment: DUPL ICATE ORDER Performed By: #### L 500.4050, L100.0100 ####[facility] [address] [place], [address] BUN/CRE Normal 10-20 [facility] Comment on above: Result Comment: DUPL ICATE ORDER Performed By: #### L 500.4050, L100.0100 ####[facility] [address] [place], [address] Calcium Normal 7.6-11.0 [facility] Comment on above: Result Comment: DUPL ICATE ORDER Performed By: #### L 500.4050, L100.0100 ####[facility] [address] [place], [address] CL Normal 98-108 [facility] Comment on above: Result Comment: DUPL ICATE ORDER Performed By: #### L 500.4050, L100.0100 ####[facility] [address] [place], [address] CO2 Normal 21.0-32.0 [facility] Comment on above: Result Comment: DUPL ICATE ORDER Performed By: #### L 500.4050, L100.0100 ####[facility] [address] [place], [address] CREAT,SERUM Normal 0.70-1.20 [facility] Comment on above: Result Comment: DUPL ICATE ORDER Performed By: #### L 500.4050, L100.0100 ####[facility] [address] [place], [address] eGFR Normal >60 [facility] Comment on above: Result Comment: DUPL ICATE ORDER Performed By: #### L 500.4050, L100.0100 ####[facility] [address] [place], [address] GAP Normal 5-15 [facility] Comment on above: Result Comment: DUPL ICATE ORDER Performed By: #### L 500.4050, L100.0100 ####[facility] [address] [place], [address] GLU Normal 70-99 [facility] Comment on above: Result Comment: DUPL ICATE ORDER Performed By: #### L 500.4050, L100.0100 ####[facility] [address] [place], [address] Potassium Normal 3.3-5.1 [facility] Comment on above: Result Comment: DUPL ICATE ORDER Performed By: #### L 500.4050, L100.0100 ####[facility] [address] [place], [address] T BILI Normal 0.00-1.30 [facility] Comment on above: Result Comment: DUPL ICATE ORDER Performed By: #### L 500.4050, L100.0100 ####[facility] [address] [place], [address] T PROT Normal 5.9-8.4 [facility] Comment on above: Result Comment: DUPL ICATE ORDER Performed By: #### L 500.4050, L100.0100 ####[facility] [address] [place], [address] Comprehensive Metabolic Profil Normal 133-145 [facility] Comment on above: Result Comment: DUPL ICATE ORDER Performed By: #### L 500.4050, L100.0100 ####[facility] [address] [place], [address] Eosinophil percentageOrdered By: Sherice Fernandez on 04-06-2025 Eosinophils/100 WBC (Bld) 0.5 % 0-5 [facility] Erythrocyte distribution wid th ratioOrdered By: [facility] on 04-06-2025 Erythrocyte distribution width (RBC) [Ratio] 17.2 % High 11.6-14.6 [facility] Erythrocyte distribution wid th standard deviationOrdered By: [facility] on 04-06-2025 Erythrocyte distribution width (RBC) [Ratio] 63.7 fl High 35.1-43.9 [facility] Ferritinon 04-06-2025 Ferritin [Mass/Vol] 827 ng/mL High 22-378 [facility] Comment on above: Performed By: #### L 501.9520, L503.6550, L503.6030, L504.2610, L100.9950 ####[facility] [address] [place], [address] Glomerular filtration rate ( GFR) estimation/1.73 sq m using serum, plasma, or whole bOrdered By: Sherice Fernandez on 04-06-2025 GFR/1.73 sq M.predicted among non-blacks MDRD (S/P/Bld) [Vol rate/Area] 71 mL/min/{1.73_m2} >60 [facility] Comment on above: mL/min/1.73m2 CKD-EP I Creatinine Equation (2020) Hematocrit Auto (Bld) [Volum e fraction]Ordered By: Sherice Fernandez on 04-06-2025 Hematocrit (Bld) [Volume fraction] 25.5 % Low 37-47 [facility] Hemoglobin measurementOrdere d By: Sherice Fernandez on 04-06-2025 Hemoglobin (Bld) [Mass/Vol] 8.3 g/dL Low 12.0-15.0 [facility] Immature granulocytes/100 WB C Auto (Bld)Ordered By: Sherice Fernandez on 04-06-2025 Immature granulocytes/100 WBC (Bld) 0.800 % 0.0-0.9 [facility] Comment on above: IG% - Immature Granu locytes (promyelocytes, myelocytes and metamyelocytes) > 1% indicates that a LEFT SHIFT is Present. Iron measurement (mass/mass) Ordered By: Sharda Bronson on 04-06-2025 Iron (Unsp spec) [Mass/Mass] 43 ug/dL Low 50-170 [facility] Iron+Iron Binding Capacityon 04-06-2025 TIBC 235 ug/dL Low 250-450 [facility] Comment on above: Performed By: #### L 501.9520, L503.6550, L503.6030, L504.2610, L100.9950 ####[facility] [address] [facility] [place], [address] LDHon 04-06-2025 LDH 829 U/L High 84-246 [facility] Comment on above: Order Comment: 1 Performed By: #### L 501.9520, L503.6550, L503.6030, L504.2610, L100.9950 ####[facility] [address] [place], [address] Laboratory - Chemistry and C hemistry - challengeOrdered By: Sherice Fernandez on 04-06-2025 AST [Catalytic activity/Vol] 100 U/L High <32 [facility] Lactate dehydrogenase (LDH) measurementOrdered By: Sharda Bronson on 04-06-2025 LDH [Catalytic activity/Vol] 829 U/L High 84-246 [facility] MCV (mean corpuscular volume ) determinationOrdered By: Sherice Fernandez on 04-06-2025 MCV (RBC) [Entitic vol] 102.4 fL High 81-99 [facility] Magnesiumon 04-06-2025 Magnesium [Mass/Vol] 1.3 mg/dL Low 1.5-2.2 [facility] Comment on above: Performed By: #### L 501.5200, L501.2300, L100.0100, L500.4050 ####[facility] [address] [place], [place], [id number] Magnesium measurement (mass/ volume)Ordered By: Sherice Jim on 04-06-2025 Magnesium (Unsp spec) [Mass/Vol] 1.3 mg/dL Low 1.5-2.2 [facility] Magnetic resonance imaging r eportOrdered By: Diaz Salazar on 04-06-2025 Study report [facility] Imaging Services [address], [place] [address] Spine Lumbar W/WO Contrast MR#: [id number] Acct: [id number] Name: BETSY RODRIGEZ Rep #: [id number] 21 : 1955 F 69 From: Martell Salazar MD PCP: Dr. 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 CONTRAST: Clariscan VOLUME: 13 mL COMPARISON: Lumbar spine CT 04/05/2025. FINDINGS: 5 fgm-mii-nvhigyo lumbar-type vertebrae are preserved in height, with anatomic alignment. No acute fracture or subluxation. Heterogeneous marrow signal abnormality with several T1 hypointense enhancing marrow lesions, compatible with osseous metastatic disease. Most prominent lesions are seen within the right aspect of T12 vertebral body, occupying nearly the entire vertebral body at L2, right aspect of L3, within and slightly expanding the spinous process of L4, posterior left aspect of L5, and dorsal aspect of S1. Several additional metastatic lesions are seen in the partially included sacrum and bilateral iliac bones. There appears to be subtle enhancing dorsal epidural disease extension at L4 at the midline. Otherwise, no mass lesion or pathologic enhancement is seen elsewhere within the spinal canal. No nodularityof the cauda equina nerve roots appreciated. Mild multilevel spondylotic changes with varying degrees of disc desiccation andnarrowing, endplate osteophytosis, and hypertrophic facet arthropathy. L1-2: No disc bulge, spinal canal or neural foraminal narrowing. L2-3: No disc bulge, spinal canal or neural foraminal narrowing. L3-4: No significant disc bulge, spinal canal or foraminal narrowing. L4-5: Mild broad-based dorsal annular disc bulge, combined with deiw-knwqlmu-nacp-ri ght ligamentum flavum and facet hypertrophy, results in mild spinal canal narrowing. Mild right and moderate-advanced left neural foraminal narrowing. Probable thin enhancing dorsal epidural enhancing tissue. L5-S1: No disc bulge or spinal canal narrowing. Mild bilateral foraminal narrowing. MRI/Spine Lumbar W/WO Contrast IMPRESSION: 1. Numerous osseous metastatic lesions as described. No pathologic fracture. 2. Probable thin enhancing dorsal epidural disease extension at the L4 level. 3. No substantial spinal canal narrowing. Mild spondylotic changes with moderate-advanced left neural foraminal narrowing at L4-5, more mild at the remaining levels. Reading Location: [id number] CC: SUZI Bronson; Dr. Fabricio Lemos MD ~ Automotive Services Manager: Signed [facility] Mean corpuscular hemoglobin (MCH) determinationOrdered By: Sherice Fernandez on 04-06-2025 MCH (RBC) [Entitic mass] 33.3 pg High 27.0-32.0 [facility] Mean corpuscular hemoglobin concentration (MCHC) determinationOrdered By: Sherice Fernandez on 04-06-2025 MCHC (RBC) [Mass/Vol] 32.5 g/dL 32-36 [facility] Mean platelet volume determi nationOrdered By: Sherice Fernandez on 04-06-2025 Platelet mean volume (Bld) [Entitic vol] 10.3 fL 6.2-12.0 [facility] Monocyte percentageOrdered B y: Sherice Jim on 04-06-2025 Monocytes/100 WBC (Bld) 24.2 % High 0-10 [facility] Neutrophil percentageOrdered By: [facility] Jim on 04-06-2025 Neutrophils/100 WBC (Bld) 62.4 % 47-70 [facility] No Panel InformationOrdered By: Sharda Bronson on 04-06-2025 Unsaturated Iron Binding Capacity 192 ug/dL Low 228-428 [facility] Nucleated red blood cell per centageOrdered By: [facility] Fernandez on 04-06-2025 Nucleated RBC/100 WBC (Bld) [Ratio] 0 % 0-5 [facility] Oncology Visit Reporton 03-18 Oncology Visit Report Normal [facility] Phosphoruson 04-06-2025 Phosphate [Mass/Vol] 3.1 mg/dL Normal 2.7-4.5 [facility] Comment on above: Performed By: #### L 501.5200, L501.2300, L100.0100, L500.4050 ####[facility] [address] [place], [place], [address] Platelet countOrdered By: Melva Fernandez on 04-06-2025 Platelets (Bld) [#/Vol] 132 10*3/uL Low 150-450 [facility] Potassium measurement (mass/ volume)Ordered By: Sherice Fernandez on 04-06-2025 Potassium (Unsp spec) [Mass/Vol] 3.3 mmol/L 3.3-5.1 [facility] RBC Auto (Bld) [#/Vol]Ordere d By: Sherice Fernandez on 04-06-2025 RBC (Bld) [#/Vol] 2.49 10*6/uL Low 4.2-5.4 [facility] Retic Panelon 04-06-2025 IM RET FRACTION 29.70 High 3.00-15.90 [facility] Comment on above: Order Comment: ADD O N Performed By: #### L 501.9520, L503.6550, L503.6030, L504.2610, L100.9950 ####[facility] [address] [place], [address] RET-HE 32.2 pg Normal 30-35 [facility] Comment on above: Order Comment: ADD O N Performed By: #### L 501.9520, L503.6550, L503.6030, L504.2610, L100.9950 ####[facility] [address] [place], [address] Retic Count 5.12 High 0.5-1.5 [facility] Comment on above: Order Comment: ADD O N Performed By: #### L 501.9520, L503.6550, L503.6030, L504.2610, L100.9950 ####[facility] [address] [place], [address] Reticulocyte hemoglobin equi valent (RET-He) measurementOrdered By: Sharda Bronson on 04-06-2025 Hemoglobin (Reticulocytes) [Entitic mass] 32.2 pg 30-35 [facility] Reticulocytes Auto (Bld) [#/ Vol]Ordered By: Sharda Bronson on 04-06-2025 Reticulocytes/100 RBC (Bld) 5.12 % High 0.5-1.5 [facility] Serum creatinine measurement (mass/volume)Ordered By: Sherice Fernandez on 04-06-2025 Creatinine [Mass/Vol] 0.88 mg/dL 0.70-1.20 [facility] Serum globulin measurementOr dered By: Sherice Fernandez on 04-06-2025 Globulin (S) [Mass/Vol] 2.7 g/dL 2.2-4.2 [facility] Serum glucose measurement (m ass/volume)Ordered By: Sherice Fernandez on 04-06-2025 Glucose [Mass/Vol] 135 mg/dL High 70-99 [facility] Serum or plasma alanine encarnacion otransferase (ALT) measurementOrdered By: Sherice Fernandez on 04-06-2025 ALT [Catalytic activity/Vol] 24 U/L <35 [facility] Serum or plasma albumin jayro urement (mass/volume)Ordered By: Sherice Fernandez on 04-06-2025 Albumin [Mass/Vol] 3.8 g/dL 3.4-4.8 [facility] Serum or plasma albumin/glob ulin mass ratioOrdered By: Sherice Fernandez on 04-06-2025 Albumin/Globulin [Mass ratio] 1.4 {ratio} 0.9-2.4 [facility] Serum or plasma alkaline lukas sphatase measurementOrdered By: Sherice Fernandez on 04-06-2025 ALP [Catalytic activity/Vol] 163 U/L High 35-104 [facility] Serum or plasma calcium jayro urement (mass/volume)Ordered By: Sherice Fernandez on 04-06-2025 Calcium [Mass/Vol] 9.7 mg/dL 7.6-11.0 [facility] Serum or plasma ferritin caesar surement (mass/volume)Ordered By: Sharda Bronson on 04-06-2025 Ferritin [Mass/Vol] 827 ng/mL High 22-378 [facility] Serum or plasma iron saturat ion measurement (mass fraction)Ordered By: Sharda Bronson on 04-06-2025 Iron saturation [Mass fraction] 18.3 % 13-59 [facility] Comment on above: Previous reported re sult: 18.0 %Edited by: ALPHONSE on 04/06/25:1307 AMENDED REPORT 04/06/25 1307 IRON SATURATION previously reported as: 18.0 % Serum or plasma urea nitroge n measurement (mass/volume)Ordered By: Sherice Fernandez on 04-06-2025 Urea nitrogen [Mass/Vol] 5 mg/dL 4-19 [facility] Sodium levelOrdered By: Carmella Fernandez on 04-06-2025 Sodium [Moles/Vol] 143 mmol/L 133-145 [facility] Spine Lumbar W/WO Contraston 04-06-2025 Spine Lumbar W/WO Contrast Normal [facility] TSH DL <= 0.005 mIU/L QnOrde red By: Sharda Bronson on 04-06-2025 TSH Qn 2.410 uIU/mL 0.300-4.200 [facility] Thyroid Stim Hormone (TSH)on 04-06-2025 TSH 2.410 uIU/mL Normal 0.300-4.200 [facility] Comment on above: Performed By: #### L 501.6148, L503.6550, L503.6030, L504.2610, L100.9950 ####[facility] [address] [place], [address] Total proteinOrdered By: Nain canseco Jim on 04-06-2025 Protein [Mass/Vol] 6.5 g/dL 5.9-8.4 [facility] White blood cell (WBC) count Ordered By: Sherice Jim on 04-06-2025 WBC (Bld) [#/Vol] 3.9 10*3/uL Low 4.4-11.0 [facility] Absolute lymphocyte countOrd ered By: Juan Lynch on 04-05-2025 Lymphocytes Auto (Unsp spec) [#/Vol] 0.63 10*3/uL Low 0.83-4.51 [facility] Absolute neutrophil countOrd ered By: Juan Lynch on 04-05-2025 Neutrophils (Bld) [#/Vol] 4.0 10*3/uL 2.0-7.7 [facility] Anion gap in Serum or Plasma Ordered By: Juan Lynch on 04-05-2025 Anion gap [Moles/Vol] 14 mmol/L 5-15 [facility] Automated lymphocyte count a s percentage of total leukocytesOrdered By: Juan Lynch on 04-05-2025 Lymphocytes/100 WBC Auto (Unsp spec) 11.0 % Low 19-41 [facility] BUN/creatinine ratioOrdered By: Juan Lynch on 04-05-2025 Urea nitrogen/Creatinine [Mass ratio] 6.2 mg/mg Low 10-20 [facility] Basic Metabolic Profile (BMP )on 04-05-2025 BUN/CRE 6.2 RATIO Low 07-06 [facility] Comment on above: Performed By: #### L 500.2500 ####[facility] [address] [place], [address] Calcium [Mass/Vol] 9.8 mg/dL Normal 7.6-11.0 [facility] Comment on above: Performed By: #### L 500.2500 ####[facility] [address] [place], [address] Chloride [Moles/Vol] 103 mmol/L Normal 98-108 [facility] Comment on above: Performed By: #### L 500.2500 ####[facility] [address] [place], [address] CO2 [Moles/Vol] 23.7 mmol/L Normal 21.0-32.0 [facility] Comment on above: Performed By: #### L 500.2500 ####[facility] [address] [place], [address] Creatinine [Mass/Vol] 0.91 mg/dL Normal 0.70-1.20 [facility] Comment on above: Performed By: #### L 500.2500 ####[facility] [address] [place], [address] ECRCL 51.80 ml/min Normal 50-250 [facility] Comment on above: Performed By: #### L 500.2500 ####[facility] [address] [place], [address] GAP 14 Normal 5-15 [facility] Comment on above: Performed By: #### L 500.2500 ####[facility] [address] [place], [address] GFR/1.73 sq M.predicted among non-blacks MDRD (S/P/Bld) [Vol rate/Area] 68 mL/min/{1.73_m2} Normal >60 [facility] Comment on above: Result Comment: mL/m in/1.73m2 CKD-EPI Creatinine Equation (2020) Performed By: #### L 500.2500 ####[facility] [address] [place], [address] Glucose [Mass/Vol] 127 mg/dL High 70-99 [facility] Comment on above: Performed By: #### L 500.2500 ####[facility] [address] [place], [address] Potassium [Moles/Vol] 3.3 mmol/L Normal 3.3-5.1 [facility] Comment on above: Performed By: #### L 500.2500 ####[facility] [address] [place], [address] Sodium [Moles/Vol] 140 mmol/L Normal 133-145 [facility] Comment on above: Performed By: #### L 500.2500 ####[facility] [address] [place], [address] Urea nitrogen [Mass/Vol] 6 mg/dL Normal 4-19 [facility] Comment on above: Performed By: #### L 500.2500 ####[facility] [address] [place], [address] Basophil percentageOrdered B y: Remus Ungur on 04-05-2025 Basophils/100 WBC (Bld) 0.5 % 0-1 [facility] CBC W/Diff, Automatedon 03-18 Absolute Lymph 0.63 X10 3/uL Low 0.83-4.51 [facility] Comment on above: Performed By: #### L 100.0100 ####[facility] [address] [place], [address] Absolute Neut 4.0 X10 3/uL Normal 2.0-7.7 [facility] Comment on above: Performed By: #### L 100.0100 ####[facility] [address] [place], [address] Basophils/100 WBC (Bld) 0.5 % Normal 0-1 [facility] Comment on above: Performed By: #### L 100.0100 ####[facility] [address] [place], [address] Eosinophils/100 WBC (Bld) 0.5 % Normal 0-5 [facility] Comment on above: Performed By: #### L 100.0100 ####[facility] [address] [place], [address] Erythrocyte distribution width (RBC) [Ratio] 16.9 % High 11.6-14.6 [facility] Comment on above: Performed By: #### L 100.0100 ####[facility] [address] [place], [address] Hematocrit (Bld) [Volume fraction] 25.5 % Low 37-47 [facility] Comment on above: Performed By: #### L 100.0100 ####[facility] [address] [place], [address] Hemoglobin (Bld) [Mass/Vol] 8.6 g/dL Low 12.0-15.0 [facility] Comment on above: Performed By: #### L 100.0100 ####[facility] [address] [place], [address] IG% 0.700 Normal 0.0-0.9 [facility] Comment on above: Result Comment: IG% - Immature Granulocytes (promyelocytes, myelocytes andmetamyelocytes) > 1% indicates that a LEFT SHIFT is Present. Performed By: #### L 100.0100 ####[facility] [address] [place], [address] Lymphocytes/100 WBC (Bld) 11.0 % Low 19-41 [facility] Comment on above: Performed By: #### L 100.0100 ####[facility] [address] [place], [address] MCH (RBC) [Entitic mass] 33.1 pg High 27.0-32.0 [facility] Comment on above: Performed By: #### L 100.0100 ####[facility] [address] [place], [address] MCHC (RBC) [Mass/Vol] 33.7 g/dL Normal 32-36 [facility] Comment on above: Performed By: #### L 100.0100 ####[facility] [address] [place], [address] MCV (RBC) [Entitic vol] 98.1 fL Normal 81-99 [facility] Comment on above: Performed By: #### L 100.0100 ####[facility] [address] [place], [address] Monocytes/100 WBC (Bld) 18.4 % High 0-10 [facility] Comment on above: Performed By: #### L 100.0100 ####[facility] [address] [place], [address] Neutrophils/100 WBC (Bld) 68.9 % Normal 47-70 [facility] Comment on above: Performed By: #### L 100.0100 ####[facility] [address] [place], [address] Nucleated RBC (Bld) [#/Vol] 0 10*3/uL Normal 0-5 [facility] Comment on above: Performed By: #### L 100.0100 ####[facility] [address] [place], [address] Platelet mean volume (Bld) [Entitic vol] 11.2 fL Normal 6.2-12.0 [facility] Comment on above: Performed By: #### L 100.0100 ####[facility] [address] [place], [address] Platelets (Bld) [#/Vol] 134 10*3/uL Low 150-450 [facility] Comment on above: Performed By: #### L 100.0100 ####[facility] [address] [place], [address] RBC (Bld) [#/Vol] 2.60 10*6/uL Low 4.2-5.4 [facility] Comment on above: Performed By: #### L 100.0100 ####[facility] [address] [place], [address] RDW SD 59.0 fl High 35.1-43.9 [facility] Comment on above: Performed By: #### L 100.0100 ####[facility] [address] [place], [address] WBC (Bld) [#/Vol] 5.8 10*3/uL Normal 4.4-11.0 [facility] Comment on above: Performed By: #### L 100.0100 ####[facility] [address] [place], [address] Carbon dioxide, total [Moles /volume] in Central venous bloodOrdered By: Juan Lynch on 04-05-2025 CO2 [Moles/Vol] 23.7 mmol/L 21.0-32.0 [facility] Chloride assayOrdered By: Kimberly Lynch on 04-05-2025 Chloride [Moles/Vol] 103 mmol/L 98-108 [facility] Emergency Department Summary on 04-05-2025 Emergency Department Summary Normal [facility] Eosinophil percentageOrdered By: Juan Lynch on 04-05-2025 Eosinophils/100 WBC (Bld) 0.5 % 0-5 [facility] Erythrocyte distribution wid th ratioOrdered By: Juan Lynch on 04-05-2025 Erythrocyte distribution width (RBC) [Ratio] 16.9 % High 11.6-14.6 [facility] Erythrocyte distribution wid th standard deviationOrdered By: Juan Lynch on 04-05-2025 Erythrocyte distribution width (RBC) [Ratio] 59.0 fl High 35.1-43.9 [facility] Glomerular filtration rate ( GFR) estimation/1.73 sq m using serum, plasma, or whole bOrdered By: Juan Lynch on 04-05-2025 GFR/1.73 sq M.predicted among non-blacks MDRD (S/P/Bld) [Vol rate/Area] 68 mL/min/{1.73_m2} >60 [facility] Comment on above: mL/min/1.73m2 CKD-EP I Creatinine Equation (2020) Hematocrit Auto (Bld) [Volum e fraction]Ordered By: Juan Lynch on 04-05-2025 Hematocrit (Bld) [Volume fraction] 25.5 % Low 37-47 [facility] Hemoglobin measurementOrdere d By: Juan Lynch on 04-05-2025 Hemoglobin (Bld) [Mass/Vol] 8.6 g/dL Low 12.0-15.0 [facility] Immature granulocytes/100 WB C Auto (Bld)Ordered By: Juan Lynch on 04-05-2025 Immature granulocytes/100 WBC (Bld) 0.700 % 0.0-0.9 [facility] Comment on above: IG% - Immature Granu locytes (promyelocytes, myelocytes and metamyelocytes) > 1% indicates that a LEFT SHIFT is Present. MCV (mean corpuscular volume ) determinationOrdered By: Juan Lynch on 04-05-2025 MCV (RBC) [Entitic vol] 98.1 fL 81-99 [facility] Mean corpuscular hemoglobin (MCH) determinationOrdered By: Juan Lynch on 04-05-2025 MCH (RBC) [Entitic mass] 33.1 pg High 27.0-32.0 [facility] Mean corpuscular hemoglobin concentration (MCHC) determinationOrdered By: Juan Lynch on 04-05-2025 MCHC (RBC) [Mass/Vol] 33.7 g/dL 32-36 [facility] Mean platelet volume determi nationOrdered By: Juan Lynch on 04-05-2025 Platelet mean volume (Bld) [Entitic vol] 11.2 fL 6.2-12.0 [facility] Monocyte percentageOrdered B y: Juan Lynch on 04-05-2025 Monocytes/100 WBC (Bld) 18.4 % High 0-10 [facility] Neutrophil percentageOrdered By: Juan Lynch on 04-05-2025 Neutrophils/100 WBC (Bld) 68.9 % 47-70 [facility] Nucleated red blood cell per centageOrdered By: Juan Lynch on 04-05-2025 Nucleated RBC/100 WBC (Bld) [Ratio] 0 % 0-5 [facility] Platelet countOrdered By: Kimberly Lynch on 04-05-2025 Platelets (Bld) [#/Vol] 134 10*3/uL Low 150-450 [facility] Potassium measurement (mass/ volume)Ordered By: Juan Lynch on 04-05-2025 Potassium (Unsp spec) [Mass/Vol] 3.3 mmol/L 3.3-5.1 [facility] RBC Auto (Bld) [#/Vol]Ordere d By: Juan Lynch on 04-05-2025 RBC (Bld) [#/Vol] 2.60 10*6/uL Low 4.2-5.4 [facility] Serum creatinine measurement (mass/volume)Ordered By: Juan Lynch on 04-05-2025 Creatinine [Mass/Vol] 0.91 mg/dL 0.70-1.20 [facility] Serum glucose measurement (m ass/volume)Ordered By: Juan Lynch on 04-05-2025 Glucose [Mass/Vol] 127 mg/dL High 70-99 [facility] Serum or plasma calcium jayro urement (mass/volume)Ordered By: Juan Lynch on 04-05-2025 Calcium [Mass/Vol] 9.8 mg/dL 7.6-11.0 [facility] Serum or plasma urea nitroge n measurement (mass/volume)Ordered By: Juan Lynch on 04-05-2025 Urea nitrogen [Mass/Vol] 6 mg/dL 4-19 [facility] Sodium levelOrdered By: Mark Lynch on 04-05-2025 Sodium [Moles/Vol] 140 mmol/L 133-145 [facility] Spine Lumbar WITH Contraston 07-20-2025 Spine Lumbar WITH Contrast Normal [facility] White blood cell (WBC) count Ordered By: Juan Lynch on 04-05-2025 WBC (Bld) [#/Vol] 5.8 10*3/uL 4.4-11.0 [facility] Absolute lymphocyte countOrd ered By: [facility] Fern[facility] on 03-16-2025 Lymphocytes Auto (Unsp spec) [#/Vol] 1.00 10*3/uL 0.83-4.51 [facility] Absolute neutrophil countOrd ered By: [facility] Fern[facility] on 03-16-2025 Neutrophils (Bld) [#/Vol] 3.2 10*3/uL 2.0-7.7 [facility] Anion gap in Serum or Plasma Ordered By: Sherice Fernandez on 03-16-2025 Anion gap [Moles/Vol] 12 mmol/L 5-15 [facility] Automated lymphocyte count a s percentage of total leukocytesOrdered By: Sherice Fernandez on 03-16-2025 Lymphocytes/100 WBC Auto (Unsp spec) 18.6 % Low 19-41 [facility] BUN/creatinine ratioOrdered By: [facility] Jim on 03-16-2025 Urea nitrogen/Creatinine [Mass ratio] 8.4 mg/mg Low 10-20 [facility] Basophil percentageOrdered B y: Sherice Fernandez on 03-16-2025 Basophils/100 WBC (Bld) 0.6 % 0-1 [facility] Bilirubin, totalOrdered By: Sherice Fernandez on 03-16-2025 Bilirubin [Mass/Vol] 0.31 mg/dL 0.00-1.30 [facility] CBC W/Diff, Automatedon 02-17 Absolute Lymph 1.00 X10 3/uL Normal 0.83-4.51 [facility] Comment on above: Performed By: #### L 500.4050, L501.2300, L501.5200, L100.0100, L501.9520, L506.0400 ####[facility] [address] [place], [address] Absolute Neut 3.2 X10 3/uL Normal 2.0-7.7 [facility] Comment on above: Performed By: #### L 500.4050, L501.2300, L501.5200, L100.0100, L501.9520, L506.0400 ####[facility] [address] [place], [address] Basophils/100 WBC (Bld) 0.6 % Normal 0-1 [facility] Comment on above: Performed By: #### L 500.4050, L501.2300, L501.5200, L100.0100, L501.9520, L506.0400 ####[facility] [address] [place], [address] Eosinophils/100 WBC (Bld) 0.9 % Normal 0-5 [facility] Comment on above: Performed By: #### L 500.4050, L501.2300, L501.5200, L100.0100, L501.9520, L506.0400 ####[facility] [address] [place], [address] Erythrocyte distribution width (RBC) [Ratio] 17.6 % High 11.6-14.6 [facility] Comment on above: Performed By: #### L 500.4050, L501.2300, L501.5200, L100.0100, L501.9520, L506.0400 ####[facility] [address] [place], [address] Hematocrit (Bld) [Volume fraction] 28.4 % Low 37-47 [facility] Comment on above: Performed By: #### L 500.4050, L501.2300, L501.5200, L100.0100, L501.9520, L506.0400 ####[facility] [address] [place], [address] Hemoglobin (Bld) [Mass/Vol] 9.5 g/dL Low 12.0-15.0 [facility] Comment on above: Performed By: #### L 500.4050, L501.2300, L501.5200, L100.0100, L501.9520, L506.0400 ####[facility] [address] [place], [address] IG% 0.700 Normal 0.0-0.9 [facility] Comment on above: Result Comment: IG% - Immature Granulocytes (promyelocytes, myelocytes andmetamyelocytes) > 1% indicates that a LEFT SHIFT is Present. Performed By: #### L 500.4050, L501.2300, L501.5200, L100.0100, L501.9520, L506.0400 ####[facility] [address] [place], [address] Lymphocytes/100 WBC (Bld) 18.6 % Low 19-41 [facility] Comment on above: Performed By: #### L 500.4050, L501.2300, L501.5200, L100.0100, L501.9520, L506.0400 ####[facility] [facility] [address] [place], [address] MCH (RBC) [Entitic mass] 33.0 pg High 27.0-32.0 [facility] Comment on above: Performed By: #### L 500.4050, L501.2300, L501.5200, L100.0100, L501.9520, L506.0400 ####[facility] [address] [place], [address] MCHC (RBC) [Mass/Vol] 33.5 g/dL Normal 32-36 [facility] Comment on above: Performed By: #### L 500.4050, L501.2300, L501.5200, L100.0100, L501.9520, L506.0400 ####[facility] [address] [place], [address] MCV (RBC) [Entitic vol] 98.6 fL Normal 81-99 [facility] Comment on above: Performed By: #### L 500.4050, L501.2300, L501.5200, L100.0100, L501.9520, L506.0400 ####[facility] [address] [place], [address] Monocytes/100 WBC (Bld) 19.9 % High 0-10 [facility] Comment on above: Performed By: #### L 500.4050, L501.2300, L501.5200, L100.0100, L501.9520, L506.0400 ####[facility] [address] [place], [address] Neutrophils/100 WBC (Bld) 59.3 % Normal 47-70 [facility] Comment on above: Performed By: #### L 500.4050, L501.2300, L501.5200, L100.0100, L501.9520, L506.0400 ####[facility] [address] [place], [address] Nucleated RBC (Bld) [#/Vol] 0 10*3/uL Normal 0-5 [facility] Comment on above: Performed By: #### L 500.4050, L501.2300, L501.5200, L100.0100, L501.9520, L506.0400 ####[facility] [address] [place], [address] Platelet mean volume (Bld) [Entitic vol] 10.5 fL Normal 6.2-12.0 [facility] Comment on above: Performed By: #### L 500.4050, L501.2300, L501.5200, L100.0100, L501.9520, L506.0400 ####[facility] [address] [place], [address] Platelets (Bld) [#/Vol] 192 10*3/uL Normal 150-450 [facility] Comment on above: Performed By: #### L 500.4050, L501.2300, L501.5200, L100.0100, L501.9520, L506.0400 ####[facility] [address] [place], [address] RBC (Bld) [#/Vol] 2.88 10*6/uL Low 4.2-5.4 [facility] Comment on above: Performed By: #### L 500.4050, L501.2300, L501.5200, L100.0100, L501.9520, L506.0400 ####[facility] [address] [place], [address] RDW SD 64.3 fl High 35.1-43.9 [facility] Comment on above: Performed By: #### L 500.4050, L501.2300, L501.5200, L100.0100, L501.9520, L506.0400 ####[facility] [address] [place], [address] WBC (Bld) [#/Vol] 5.4 10*3/uL Normal 4.4-11.0 [facility] Comment on above: Performed By: #### L 500.4050, L501.2300, L501.5200, L100.0100, L501.9520, L506.0400 ####[facility] [address] [place], [address] Carbon dioxide, total [Moles /volume] in Central venous bloodOrdered By: Sherice Fernandez on 03-16-2025 CO2 [Moles/Vol] 22.1 mmol/L 21.0-32.0 [facility] Chloride assayOrdered By: Melva Fernandez on 03-16-2025 Chloride [Moles/Vol] 105 mmol/L 98-108 [facility] Comprehensive Metabolic Prof ilon 03-16-2025 Albumin [Mass/Vol] 3.8 g/dL Normal 3.4-4.8 [facility] Comment on above: Performed By: #### L 500.4050, L501.2300, L501.5200, L100.0100, L501.9520, L506.0400 ####[facility] [address] [place], [address] Albumin/Globulin [Mass ratio] 1.3 {ratio} Normal 0.9-2.4 [facility] Comment on above: Performed By: #### L 500.4050, L501.2300, L501.5200, L100.0100, L501.9520, L506.0400 ####[facility] [address] [place], [address] ALK PHOS 158 U/L High 35-104 [facility] Comment on above: Performed By: #### L 500.4050, L501.2300, L501.5200, L100.0100, L501.9520, L506.0400 ####[facility] [address] [place], [address] ALT [Catalytic activity/Vol] 19 U/L Normal <=34 [facility] Comment on above: Performed By: #### L 500.4050, L501.2300, L501.5200, L100.0100, L501.9520, L506.0400 ####[facility] [address] [place], [address] AST [Catalytic activity/Vol] 73 U/L High <=31 [facility] Comment on above: Performed By: #### L 500.4050, L501.2300, L501.5200, L100.0100, L501.9520, L506.0400 ####[facility] [address] [place], [address] Bilirubin [Mass/Vol] 0.31 mg/dL Normal 0.00-1.30 [facility] Comment on above: Performed By: #### L 500.4050, L501.2300, L501.5200, L100.0100, L501.9520, L506.0400 ####[facility] [address] [place], [address] BUN/CRE 8.4 RATIO Low 10-20 [facility] Comment on above: Performed By: #### L 500.4050, L501.2300, L501.5200, L100.0100, L501.9520, L506.0400 ####[facility] [address] [place], [address] Calcium [Mass/Vol] 9.8 mg/dL Normal 7.6-11.0 [facility] Comment on above: Performed By: #### L 500.4050, L501.2300, L501.5200, L100.0100, L501.9520, L506.0400 ####[facility] [address] [place], [address] Chloride [Moles/Vol] 105 mmol/L Normal 98-108 [facility] Comment on above: Performed By: #### L 500.4050, L501.2300, L501.5200, L100.0100, L501.9520, L506.0400 ####[facility] [address] [place], [address] CO2 [Moles/Vol] 22.1 mmol/L Normal 21.0-32.0 [facility] Comment on above: Performed By: #### L 500.4050, L501.2300, L501.5200, L100.0100, L501.9520, L506.0400 ####[facility] [address] [place], [address] Creatinine [Mass/Vol] 0.85 mg/dL Normal 0.70-1.20 [facility] Comment on above: Performed By: #### L 500.4050, L501.2300, L501.5200, L100.0100, L501.9520, L506.0400 ####[facility] [address] [place], [address] ECRCL 56.03 ml/min Normal 50-250 [facility] Comment on above: Performed By: #### L 500.4050, L501.2300, L501.5200, L100.0100, L501.9520, L506.0400 ####[facility] [address] [place], [address] GAP 12 Normal 5-15 [facility] Comment on above: Performed By: #### L 500.4050, L501.2300, L501.5200, L100.0100, L501.9520, L506.0400 ####[facility] [address] [place], [address] GFR/1.73 sq M.predicted among non-blacks MDRD (S/P/Bld) [Vol rate/Area] 74 mL/min/{1.73_m2} Normal >60 [facility] Comment on above: Result Comment: mL/m in/1.73m2 CKD-EPI Creatinine Equation (2020) Performed By: #### L 500.4050, L501.2300, L501.5200, L100.0100, L501.9520, L506.0400 ####[facility] [address] [place], [address] Globulin (S) [Mass/Vol] 3.0 g/dL Normal 2.2-4.2 [facility] Comment on above: Performed By: #### L 500.4050, L501.2300, L501.5200, L100.0100, L501.9520, L506.0400 ####[facility] [address] [place], [address] Glucose [Mass/Vol] 158 mg/dL High 70-99 [facility] Comment on above: Performed By: #### L 500.4050, L501.2300, L501.5200, L100.0100, L501.9520, L506.0400 ####[facility] [address] [place], [address] Potassium [Moles/Vol] 3.8 mmol/L Normal 3.3-5.1 [facility] Comment on above: Performed By: #### L 500.4050, L501.2300, L501.5200, L100.0100, L501.9520, L506.0400 ####[facility] [address] [place], [address] Sodium [Moles/Vol] 140 mmol/L Normal 133-145 [facility] Comment on above: Performed By: #### L 500.4050, L501.2300, L501.5200, L100.0100, L501.9520, L506.0400 ####[facility] [address] [place], [address] T PROT 6.7 g/dL Normal 5.9-8.4 [facility] Comment on above: Performed By: #### L 500.4050, L501.2300, L501.5200, L100.0100, L501.9520, L506.0400 ####[facility] [address] [place], [address] Urea nitrogen [Mass/Vol] 7 mg/dL Normal 4-19 [facility] Comment on above: Performed By: #### L 500.4050, L501.2300, L501.5200, L100.0100, L501.9520, L506.0400 ####[facility] [address] [place], [address] Eosinophil percentageOrdered By: Sherice Fernandez on 03-16-2025 Eosinophils/100 WBC (Bld) 0.9 % 0-5 [facility] Erythrocyte distribution wid th ratioOrdered By: [facility] Jim on 03-16-2025 Erythrocyte distribution width (RBC) [Ratio] 17.6 % High 11.6-14.6 [facility] Erythrocyte distribution wid th standard deviationOrdered By: [facility] Jim on 03-16-2025 Erythrocyte distribution width (RBC) [Ratio] 64.3 fl High 35.1-43.9 [facility] Glomerular filtration rate ( GFR) estimation/1.73 sq m using serum, plasma, or whole bOrdered By: [facility] 03-16-[facility] GFR/1.73 sq M.predicted among non-blacks MDRD (S/P/Bld) [Vol rate/Area] 74 mL/min/{1.73_m2} >60 [facility] Comment on above: mL/min/1.73m2 CKD-EP I Creatinine Equation (2020) Hematocrit Auto (Bld) [Volum e fraction]Ordered By: [facility] on 03-16-2025 Hematocrit (Bld) [Volume fraction] 28.4 % Low 37-47 [facility] Hemoglobin measurementOrdere d By: Sherice Fernandez on 03-16-2025 Hemoglobin (Bld) [Mass/Vol] 9.5 g/dL Low 12.0-15.0 [facility] Immature granulocytes/100 WB C Auto (Bld)Ordered By: [facility] on 03-16-2025 Immature granulocytes/100 WBC (Bld) 0.700 % 0.0-0.9 [facility] Comment on above: IG% - Immature Granu locytes (promyelocytes, myelocytes and metamyelocytes) > 1% indicates that a LEFT SHIFT is Present. L509.6001on 03-16-2025 CORTISOL 9.88 ug/dL Normal 6.02-18.40 [facility] Comment on above: Performed By: #### L 509.6005 ####[facility] [address] [place], [place], [id number] Laboratory - Chemistry and C hemistry - challengeOrdered By: Sherice Fernandez on 03-16-2025 AST [Catalytic activity/Vol] 73 U/L High <32 [facility] MCV (mean corpuscular volume ) determinationOrdered By: Sherice Fernandez on 03-16-2025 MCV (RBC) [Entitic vol] 98.6 fL 81-99 [facility] Magnesiumon 03-16-2025 Magnesium [Mass/Vol] 1.5 mg/dL Normal 1.5-2.2 [facility] Comment on above: Performed By: #### L 500.4050, L501.2300, L501.5200, L100.0100, L501.9520, L506.0400 ####[facility] [address] [place], [place], [id number] Magnesium measurement (mass/ volume)Ordered By: Sherice Fernandez on 03-16-2025 Magnesium (Unsp spec) [Mass/Vol] 1.5 mg/dL 1.5-2.2 [facility] Mean corpuscular hemoglobin (MCH) determinationOrdered By: Sherice Fernandez on 03-16-2025 MCH (RBC) [Entitic mass] 33.0 pg High 27.0-32.0 [facility] Mean corpuscular hemoglobin concentration (MCHC) determinationOrdered By: Sherice Fernandez on 03-16-2025 MCHC (RBC) [Mass/Vol] 33.5 g/dL 32-36 [facility] Mean platelet volume determi nationOrdered By: Sherice Fernandez on 03-16-2025 Platelet mean volume (Bld) [Entitic vol] 10.5 fL 6.2-12.0 [facility] Monocyte percentageOrdered B y: Sherice Fernandez on 03-16-2025 Monocytes/100 WBC (Bld) 19.9 % High 0-10 [facility] Neutrophil percentageOrdered By: Sherice Fernandez on 06-30-2025 Neutrophils/100 WBC (Bld) 59.3 % 47-70 [facility] Nucleated red blood cell per centageOrdered By: Sherice Fernandez on 03-16-2025 Nucleated RBC/100 WBC (Bld) [Ratio] 0 % 0-5 [facility] Oncology Visit Reporton 02-17 0-2024 Oncology Visit Report Normal [facility] Phosphoruson 03-16-2025 Phosphate [Mass/Vol] 3.4 mg/dL Normal 2.7-4.5 [facility] Comment on above: Performed By: #### L 500.4050, L501.2300, L501.5200, L100.0100, L501.9520, L506.0400 ####[facility] [address] [place], [address] Platelet countOrdered By: Melva Fernandez on 03-16-2025 Platelets (Bld) [#/Vol] 192 10*3/uL 150-450 [facility] Potassium measurement (mass/ volume)Ordered By: Sherice Fernandez on 03-16-2025 Potassium (Unsp spec) [Mass/Vol] 3.8 mmol/L 3.3-5.1 [facility] RBC Auto (Bld) [#/Vol]Ordere d By: Sherice Fernandez on 03-16-2025 RBC (Bld) [#/Vol] 2.88 10*6/uL Low 4.2-5.4 [facility] Serum creatinine measurement (mass/volume)Ordered By: Sherice Fernandez on 03-16-2025 Creatinine [Mass/Vol] 0.85 mg/dL 0.70-1.20 [facility] Serum globulin measurementOr dered By: Sherice Fernandez on 03-16-2025 Globulin (S) [Mass/Vol] 3.0 g/dL 2.2-4.2 [facility] Serum glucose measurement (m ass/volume)Ordered By: Sherice Fernandez on 03-16-2025 Glucose [Mass/Vol] 158 mg/dL High 70-99 [facility] Serum or plasma alanine encarnacion otransferase (ALT) measurementOrdered By: Sherice Fernandez on 03-16-2025 ALT [Catalytic activity/Vol] 19 U/L <35 [facility] Serum or plasma albumin jayro urement (mass/volume)Ordered By: Sherice Fernandez on 03-16-2025 Albumin [Mass/Vol] 3.8 g/dL 3.4-4.8 [facility] Serum or plasma albumin/glob ulin mass ratioOrdered By: [facility] on 03-16-2025 Albumin/Globulin [Mass ratio] 1.3 {ratio} 0.9-2.4 [facility] Serum or plasma alkaline lukas sphatase measurementOrdered By: Sherice Fernandez on 03-16-2025 ALP [Catalytic activity/Vol] 158 U/L High 35-104 [facility] Serum or plasma calcium jayro urement (mass/volume)Ordered By: Sherice Fernandez on 03-16-2025 Calcium [Mass/Vol] 9.8 mg/dL 7.6-11.0 [facility] Serum or plasma cortisol caesar surement (mass/volume)Ordered By: Sherice Fernandez on 03-16-2025 Cortisol [Mass/Vol] 9.88 ug/dL 6.02-18.40 [facility] Serum or plasma urea nitroge n measurement (mass/volume)Ordered By: Sherice Fernandez on 03-16-2025 Urea nitrogen [Mass/Vol] 7 mg/dL 4-19 [facility] Sodium levelOrdered By: Carmella Fernandez on 03-16-2025 Sodium [Moles/Vol] 140 mmol/L 133-145 [facility] T4 Free Directon 03-16-2025 T4 FREE DIRECT 1.10 ng/dL Normal 0.76-1.46 [facility] Comment on above: Performed By: #### L 500.4050, L501.2300, L501.5200, L100.0100, L501.9520, L506.0400 ####[facility] [address] [place], [address] T4 freeOrdered By: Sherice burciaga on 03-16-2025 Free T4 [Mass/Vol] 1.10 ng/dL 0.76-1.46 [facility] TSH DL <= 0.005 mIU/L QnOrde red By: Sherice Fernandez on 03-16-2025 TSH Qn 2.960 uIU/mL 0.300-4.200 [facility] Thyroid Stim Hormone (TSH)on 03-16-2025 TSH 2.960 uIU/mL Normal 0.300-4.200 [facility] Comment on above: Performed By: #### L 500.4050, L501.2300, L501.5200, L100.0100, L501.9520, L506.0400 ####[facility] [address] [place], [place], [id number] Total proteinOrdered By: Nain Fernandez on 03-16-2025 Protein [Mass/Vol] 6.7 g/dL 5.9-8.4 [facility] White blood cell (WBC) count Ordered By: Sherice Fernandez on 03-16-2025 WBC (Bld) [#/Vol] 5.4 10*3/uL 4.4-11.0 [facility] Absolute lymphocyte countOrd ered By: Sherice Fernandez on 02-24-2025 Lymphocytes Auto (Unsp spec) [#/Vol] 1.24 10*3/uL 0.83-4.51 [facility] Anion gap in Serum or Plasma Ordered By: Sherice Fernandez on 02-24-2025 Anion gap [Moles/Vol] 11 mmol/L 5-15 [facility] Automated lymphocyte count a s percentage of total leukocytesOrdered By: Sherice Fernandez on 02-24-2025 Lymphocytes/100 WBC Auto (Unsp spec) 18.7 % Low 19-41 [facility] BUN/creatinine ratioOrdered By: Sherice Fernandez on 02-24-2025 Urea nitrogen/Creatinine [Mass ratio] 15.8 mg/mg 10-20 [facility] Basophil percentageOrdered B y: Sherice Fernandez on 02-24-2025 Basophils/100 WBC (Bld) 0.6 % 0-1 [facility] Bilirubin, totalOrdered By: Sherice Fernandez on 02-24-2025 Bilirubin [Mass/Vol] 0.24 mg/dL Normal 0.00-1.30 [facility] Comment on above: Performed By: #### L 500.4050, L100.0100, L506.0400, L501.9520, L501.5200, L501.2300 ####[facility] [address] [place], [address] CBC W/Diff, AutomatedOrdered By: Sherice Fernandez on 02-24-2025 Anisocytosis Ql (Bld) 13 Normal [facility] Comment on above: Performed By: #### L 500.4050, L100.0100, L506.0400, L501.9520, L501.5200, L501.2300 ####[facility] [address] [place], [address] CBC W/Diff, Automatedon 02-15 PLT EST A Normal ADEQ [facility] Comment on above: Performed By: #### L 500.4050, L100.0100, L506.0400, L501.9520, L501.5200, L501.2300 ####[facility] [address] [place], [address] RED CELL MORPH NORM C+C Normal NORM C C [facility] Comment on above: Performed By: #### L 500.4050, L100.0100, L506.0400, L501.9520, L501.5200, L501.2300 ####[facility] [address] [place], [address] Carbon dioxide, total [Moles /volume] in Central venous bloodOrdered By: Sherice Fernandez on 02-24-2025 CO2 [Moles/Vol] 24.1 mmol/L Normal 21.0-32.0 [facility] Comment on above: Performed By: #### L 500.4050, L100.0100, L506.0400, L501.9520, L501.5200, L501.2300 ####[facility] [address] [place], [address] Chloride assayOrdered By: Melva Fernandez on 02-24-2025 Chloride [Moles/Vol] 104 mmol/L Normal 98-108 [facility] Comment on above: Performed By: #### L 500.4050, L100.0100, L506.0400, L501.9520, L501.5200, L501.2300 ####[facility] [address] [place], [address] Comprehensive Metabolic Prof ilon 02-24-2025 ALK PHOS 155 U/L High 35-104 [facility] Comment on above: Performed By: #### L 500.4050, L100.0100, L506.0400, L501.9520, L501.5200, L501.2300 ####[facility] [address] [place], [address] AST [Catalytic activity/Vol] 43 U/L High <=31 [facility] Comment on above: Performed By: #### L 500.4050, L100.0100, L506.0400, L501.9520, L501.5200, L501.2300 ####[facility] [address] [place], [address] BUN/CRE 15.8 RATIO Normal 10-20 [facility] Comment on above: Performed By: #### L 500.4050, L100.0100, L506.0400, L501.9520, L501.5200, L501.2300 ####[facility] [address] [place], [address] ECRCL 59.36 ml/min Normal 50-250 [facility] Comment on above: Performed By: #### L 500.4050, L100.0100, L506.0400, L501.9520, L501.5200, L501.2300 ####[facility] [address] [place], [address] GAP 11 Normal 5-15 [facility] Comment on above: Performed By: #### L 500.4050, L100.0100, L506.0400, L501.9520, L501.5200, L501.2300 ####[facility] [address] [place], [address] Potassium [Moles/Vol] 3.9 mmol/L Normal 3.3-5.1 [facility] Comment on above: Performed By: #### L 500.4050, L100.0100, L506.0400, L501.9520, L501.5200, L501.2300 ####[facility] [address] [place], [address] T PROT 6.6 g/dL Normal 5.9-8.4 [facility] Comment on above: Performed By: #### L 500.4050, L100.0100, L506.0400, L501.9520, L501.5200, L501.2300 ####[facility] [address] [place], [address] Eosinophil percentageOrdered By: Sherice Fernandez on 02-24-2025 Eosinophils/100 WBC (Bld) 0.6 % 0-5 [facility] Erythrocyte distribution wid th ratioOrdered By: Sherice Fernandez on 02-24-2025 Erythrocyte distribution width (RBC) [Ratio] 20.3 % High 11.6-14.6 [facility] Erythrocyte distribution wid th standard deviationOrdered By: Sherice Fernandez on 02-24-2025 Erythrocyte distribution width (RBC) [Ratio] 74.4 fl High 35.1-43.9 [facility] Erythrocyte morphology asses smentOrdered By: Sherice Fernandez on 02-24-2025 RBC morphology finding Nom (Bld) NORM C+C NORMAL NORM C&C [facility] Glomerular filtration rate ( GFR) estimation/1.73 sq m using serum, plasma, or whole bOrdered By: Sherice Fernandez on 02-24-2025 GFR/1.73 sq M.predicted among non-blacks MDRD (S/P/Bld) [Vol rate/Area] 78 mL/min/{1.73_m2} Normal >60 [facility] Comment on above: Result Comment: mL/m in/1.73m2 CKD-EPI Creatinine Equation (2020) Performed By: #### L 500.4050, L100.0100, L506.0400, L501.9520, L501.5200, L501.2300 ####[facility] [address] [place], [address] Hematocrit Auto (Bld) [Volum e fraction]Ordered By: [facility] on 02-24-2025 Hematocrit (Bld) [Volume fraction] 31.1 % Low 37-47 [facility] Hemoglobin measurementOrdere d By: Sherice Fernandez on 02-24-2025 Hemoglobin (Bld) [Mass/Vol] 10.1 g/dL Low 12.0-15.0 [facility] Immature granulocytes/100 WB C Auto (Bld)Ordered By: Sherice Fernandez on 02-24-2025 Immature granulocytes/100 WBC (Bld) 1.200 % High 0.0-0.9 [facility] MCV (mean corpuscular volume ) determinationOrdered By: Sherice Fernandez on 02-24-2025 MCV (RBC) [Entitic vol] 97.8 fL 81-99 [facility] Magnesiumon 02-24-2025 Magnesium [Mass/Vol] 1.6 mg/dL Normal 1.5-2.2 [facility] Comment on above: Performed By: #### L 500.4050, L100.0100, L506.0400, L501.9520, L501.5200, L501.2300 ####[facility] [address] [place], [address] Magnesium measurement (mass/ volume)Ordered By: [facility] on 02-24-2025 Magnesium (Unsp spec) [Mass/Vol] 1.6 mg/dL 1.5-2.2 [facility] Mean corpuscular hemoglobin (MCH) determinationOrdered By: Sherice Fernandez on 02-24-2025 MCH (RBC) [Entitic mass] 31.8 pg 27.0-32.0 [facility] Monocyte percentageOrdered B y: Sherice Fernandez on 02-24-2025 Monocytes/100 WBC (Bld) 18.1 % High 0-10 [facility] Neutrophil percentageOrdered By: Sherice Fernandez on 02-24-2025 Neutrophils/100 WBC (Bld) 60.8 % 47-70 [facility] No Panel InformationOrdered By: Sherice Fernandez on 02-24-2025 13 [facility] 43 U/L High <32 [facility] Oncology Visit Reporton 02-15 Oncology Visit Report Normal [facility] Phosphoruson 02-24-2025 Phosphate [Mass/Vol] 3.4 mg/dL Normal 2.7-4.5 [facility] Comment on above: Performed By: #### L 500.4050, L100.0100, L506.0400, L501.9520, L501.5200, L501.2300 ####[facility] [address] [place], [address] Platelet countOrdered By: Melva Fernandez on 02-24-2025 Platelets (Bld) [#/Vol] 317 10*3/uL 150-450 [facility] Platelet estimateOrdered By: Sherice Fernandez on 02-24-2025 Platelets LM Ql (Bld) A ADEQ [facility] Potassium measurement (mass/ volume)Ordered By: Sherice Fernandez on 02-24-2025 Potassium (Unsp spec) [Mass/Vol] 3.9 mmol/L 3.3-5.1 [facility] RBC Auto (Bld) [#/Vol]Ordere d By: Sherice Fernandez on 02-24-2025 RBC (Bld) [#/Vol] 3.18 10*6/uL Low 4.2-5.4 [facility] Serum creatinine measurement (mass/volume)Ordered By: Sherice Fernandez on 02-24-2025 Creatinine [Mass/Vol] 0.81 mg/dL Normal 0.70-1.20 [facility] Comment on above: Performed By: #### L 500.4050, L100.0100, L506.0400, L501.9520, L501.5200, L501.2300 ####[facility] [id number] [place], [address] Serum globulin measurementOr dered By: Sherice Fernandez on 02-24-2025 Globulin (S) [Mass/Vol] 2.7 g/dL Normal 2.2-4.2 [facility] Comment on above: Performed By: #### L 500.4050, L100.0100, L506.0400, L501.9520, L501.5200, L501.2300 ####[facility] [id number] [place], [address] Serum glucose measurement (m ass/volume)Ordered By: Sherice Fernandez on 02-24-2025 Glucose [Mass/Vol] 123 mg/dL High 70-99 [facility] Comment on above: Performed By: #### L 500.4050, L100.0100, L506.0400, L501.9520, L501.5200, L501.2300 ####[facility] [id number] [place], [address] Serum or plasma alanine encarnacion otransferase (ALT) measurementOrdered By: Sherice Fernandez on 02-24-2025 ALT [Catalytic activity/Vol] 17 U/L Normal <=34 [facility] [facility] Comment on above: Performed By: #### L 500.4050, L100.0100, L506.0400, L501.9520, L501.5200, L501.2300 ####[facility] [address] [place], [address] Serum or plasma albumin jayro urement (mass/volume)Ordered By: Sherice Fernandez on 02-24-2025 Albumin [Mass/Vol] 3.9 g/dL Normal 3.4-4.8 [facility] Comment on above: Performed By: #### L 500.4050, L100.0100, L506.0400, L501.9520, L501.5200, L501.2300 ####[facility] [address] [place], [place], [id number] Serum or plasma albumin/glob ulin mass ratioOrdered By: Sherice Fernandez on 02-24-2025 Albumin/Globulin [Mass ratio] 1.4 {ratio} Normal 0.9-2.4 [facility] Comment on above: Performed By: #### L 500.4050, L100.0100, L506.0400, L501.9520, L501.5200, L501.2300 ####[facility] [address] [place], [place], [phone] Serum or plasma alkaline lukas sphatase measurementOrdered By: Sherice Fernandez on 02-24-2025 ALP [Catalytic activity/Vol] 155 U/L High 35-104 [facility] Serum or plasma calcium jayro urement (mass/volume)Ordered By: Sherice Fernandez on 02-24-2025 Calcium [Mass/Vol] 9.4 mg/dL Normal 7.6-11.0 [facility] Comment on above: Performed By: #### L 500.4050, L100.0100, L506.0400, L501.9520, L501.5200, L501.2300 ####[facility] [address] [place], [address] Serum or plasma urea nitroge n measurement (mass/volume)Ordered By: Sherice Fernandez on 02-24-2025 Urea nitrogen [Mass/Vol] 13 mg/dL Normal 4-19 [facility] Comment on above: Performed By: #### L 500.4050, L100.0100, L506.0400, L501.9520, L501.5200, L501.2300 ####[facility] [address] [place], [place], [phone] Sodium levelOrdered By: Carmella Fernandez on 02-24-2025 Sodium [Moles/Vol] 139 mmol/L Normal 133-145 [facility] Comment on above: Performed By: #### L 500.4050, L100.0100, L506.0400, L501.9520, L501.5200, L501.2300 ####[facility] [address] [place], [place], [phone] T4 Free Directon 02-24-2025 T4 FREE DIRECT 0.80 ng/dL Normal 0.76-1.46 [facility] Comment on above: Performed By: #### L 500.4050, L100.0100, L506.0400, L501.9520, L501.5200, L501.2300 ####[facility] [address] [place], [place], [phone] T4 freeOrdered By: Sherice burciaga on 02-24-2025 Free T4 [Mass/Vol] 0.80 ng/dL 0.76-1.46 [facility] TSH DL <= 0.005 mIU/L QnOrde red By: Sherice Fernandez on 02-24-2025 TSH Qn 3.640 uIU/mL 0.300-4.200 [facility] Thyroid Stim Hormone (TSH)on 02-24-2025 TSH 3.640 uIU/mL Normal 0.300-4.200 [facility] Comment on above: Performed By: #### L 500.4050, L100.0100, L506.0400, L501.9520, L501.5200, L501.2300 ####[facility] [address] [place], [address] Total proteinOrdered By: Nain Fernandez on 02-24-2025 Protein [Mass/Vol] 6.6 g/dL 5.9-8.4 [facility] White blood cell (WBC) count Ordered By: Sherice Fernandez on 02-24-2025 WBC (Bld) [#/Vol] 6.6 10*3/uL 4.4-11.[address] [facility] CT Chest AND Abd W/ Contrast on 02-17-2025 CT Chest AND Abd W/ Contrast Normal [facility] Lumbar Spine 2 or 3 Viewson 02-16-2025 Lumbar Spine 2 or 3 Views Normal [facility] MR/POSTOP.ANEon 02-16-2025 MR/POSTOP.ANE Normal [facility] MR/AKATPHDV9qk 02-16-2025 MR/POSTOPAN2 Normal [facility] Operative Reporton Operative Report Normal [facility] MR/PAT.ANEon 02-11-2025 MR/PAT.ANE Normal [facility] CBC W/Diff, Automatedon 01-16 PATH REV Reviewed Normal [facility] Comment on above: Result Comment: SEE REPORT IN PATIENT'S EMR AMENDED REPORT 02/05/25 1614 PATH REV previously reported as: January Performed By: #### L 500.2500, L100.0100 ####[facility] [address] [place], [address] Absolute lymphocyte countOrd ered By: Sherice Fernandez on 02-03-2025 Lymphocytes Auto (Unsp spec) [#/Vol] 1.14 10*3/uL 0.83-4.51 [facility] Absolute neutrophil countOrd ered By: [facility] on 02-03-2025 Neutrophils (Bld) [#/Vol] 3.1 10*3/uL 2.0-7.7 [facility] Anion gap in Serum or Plasma Ordered By: Sherice Fernandez on 02-03-2025 Anion gap [Moles/Vol] 11 mmol/L 5-15 [facility] Automated lymphocyte count a s percentage of total leukocytesOrdered By: Sherice Fernandez on 02-03-2025 Lymphocytes/100 WBC Auto (Unsp spec) 19.9 % 19- [facility] BUN/creatinine ratioOrdered By: Sherice Smithestefany on 02-03-2025 Urea nitrogen/Creatinine [Mass ratio] 8.6 mg/mg Low 10-20 [facility] Basophil percentageOrdered B y: Sherice Smithestefany on 02-03-2025 Basophils/100 WBC (Bld) 1.9 % High 0-1 [facility] Bilirubin, totalOrdered By: Sherice Smithestefany on 02-03-2025 Bilirubin [Mass/Vol] 0.41 mg/dL 0.00-1.30 [facility] CBC W/Diff, Automatedon 01-16 Anisocytosis Ql (Bld) 1+ Normal [facility] Comment on above: Performed By: #### L 501.5200, L100.0100, L501.9520, L500.4050, L506.0400, L501.2300 ####[facility] [address] [place], [address] Carbon dioxide, total [Moles /volume] in Central venous bloodOrdered By: Sherice Jim on 02-03-2025 CO2 [Moles/Vol] 24.1 mmol/L 21.0-32.0 [facility] Chloride assayOrdered By: Melva baladrian Fernandez on 02-03-2025 Chloride [Moles/Vol] 106 mmol/L 98-108 [facility] Comprehensive Metabolic Prof ilon 02-03-2025 Albumin [Mass/Vol] 3.4 g/dL Normal 3.4-4.8 [facility] Comment on above: Performed By: #### L 501.5200, L100.0100, L501.9520, L500.4050, L506.0400, L501.2300 ####[facility] [address] [place], [address] Albumin/Globulin [Mass ratio] 1.0 {ratio} Normal 0.9-2.4 [facility] Comment on above: Performed By: #### L 501.5200, L100.0100, L501.9520, L500.4050, L506.0400, L501.2300 ####[facility] [address] [place], [address] ALK PHOS 162 U/L High 35-104 [facility] Comment on above: Performed By: #### L 501.5200, L100.0100, L501.9520, L500.4050, L506.0400, L501.2300 ####[facility] [address] [place], [address] ALT [Catalytic activity/Vol] 10 U/L Normal <=34 [facility] Comment on above: Performed By: #### L 501.5200, L100.0100, L501.9520, L500.4050, L506.0400, L501.2300 ####[facility] [address] [place], [address] AST [Catalytic activity/Vol] 39 U/L High <=31 [facility] Comment on above: Performed By: #### L 501.5200, L100.0100, L501.9520, L500.4050, L506.0400, L501.2300 ####[facility] [address] [place], [address] Bilirubin [Mass/Vol] 0.41 mg/dL Normal 0.00-1.30 [facility] Comment on above: Performed By: #### L 501.5200, L100.0100, L501.9520, L500.4050, L506.0400, L501.2300 ####[facility] [address] [place], [address] BUN/CRE 8.6 RATIO Low 10-20 [facility] Comment on above: Performed By: #### L 501.5200, L100.0100, L501.9520, L500.4050, L506.0400, L501.2300 ####[facility] [address] [place], [address] Calcium [Mass/Vol] 9.4 mg/dL Normal 7.6-11.0 [facility] Comment on above: Performed By: #### L 501.5200, L100.0100, L501.9520, L500.4050, L506.0400, L501.2300 ####[facility] [address] [place], [address] Chloride [Moles/Vol] 106 mmol/L Normal 98-108 [facility] Comment on above: Performed By: #### L 501.5200, L100.0100, L501.9520, L500.4050, L506.0400, L501.2300 ####[facility] [address] [place], [address] CO2 [Moles/Vol] 24.1 mmol/L Normal 21.0-32.0 [facility] Comment on above: Performed By: #### L 501.5200, L100.0100, L501.9520, L500.4050, L506.0400, L501.2300 ####[facility] [address] [place], [address] Creatinine [Mass/Vol] 0.82 mg/dL Normal 0.70-1.20 [facility] Comment on above: Performed By: #### L 501.5200, L100.0100, L501.9520, L500.4050, L506.0400, L501.2300 ####[facility] [address] [place], [address] ECRCL 52.81 ml/min Normal 50-250 [facility] Comment on above: Performed By: #### L 501.5200, L100.0100, L501.9520, L500.4050, L506.0400, L501.2300 ####[facility] [address] [place], [address] GAP 11 Normal 5-15 [facility] Comment on above: Performed By: #### L 501.5200, L100.0100, L501.9520, L500.4050, L506.0400, L501.2300 ####[facility] [address] [place], [address] GFR/1.73 sq M.predicted among non-blacks MDRD (S/P/Bld) [Vol rate/Area] 77 mL/min/{1.73_m2} Normal >60 [facility] Comment on above: Result Comment: mL/m in/1.73m2 CKD-EPI Creatinine Equation (2020) Performed By: #### L 501.5200, L100.0100, L501.9520, L500.4050, L506.0400, L501.2300 ####[facility] [address] [place], [address] Globulin (S) [Mass/Vol] 3.3 g/dL Normal 2.2-4.2 [facility] Comment on above: Performed By: #### L 501.5200, L100.0100, L501.9520, L500.4050, L506.0400, L501.2300 ####[facility] [address] [place], [address] Glucose [Mass/Vol] 108 mg/dL High 70-99 [facility] Comment on above: Performed By: #### L 501.5200, L100.0100, L501.9520, L500.4050, L506.0400, L501.2300 ####[facility] [address] [place], [address] Potassium [Moles/Vol] 4.0 mmol/L Normal 3.3-5.1 [facility] Comment on above: Performed By: #### L 501.5200, L100.0100, L501.9520, L500.4050, L506.0400, L501.2300 ####[facility] [address] [place], [address] Sodium [Moles/Vol] 141 mmol/L Normal 133-145 [facility] Comment on above: Performed By: #### L 501.5200, L100.0100, L501.9520, L500.4050, L506.0400, L501.2300 ####[facility] [address] [place], [address] T PROT 6.6 g/dL Normal 5.9-8.4 [facility] Comment on above: Performed By: #### L 501.5200, L100.0100, L501.9520, L500.4050, L506.0400, L501.2300 ####[facility] [address] [place], [address] Urea nitrogen [Mass/Vol] 7 mg/dL Normal 4-19 [facility] Comment on above: Performed By: #### L 501.5200, L100.0100, L501.9520, L500.4050, L506.0400, L501.2300 ####[facility] [address] [place], [address] Eosinophil percentageOrdered By: Sherice Fernandez on 02-03-2025 Eosinophils/100 WBC (Bld) 0.9 % 0-5 [facility] Erythrocyte distribution wid th ratioOrdered By: Sherice Fernandez on 02-03-2025 Erythrocyte distribution width (RBC) [Ratio] 19.5 % High 11.6-14.6 [facility] Erythrocyte distribution wid th standard deviationOrdered By: Sherice Fernandez on 02-03-2025 Erythrocyte distribution width (RBC) [Ratio] 65.8 fl High 35.1-43.9 [facility] Glomerular filtration rate ( GFR) estimation/1.73 sq m using serum, plasma, or whole bOrdered By: Sherice Fernandez on 02-03-2025 GFR/1.73 sq M.predicted among non-blacks MDRD (S/P/Bld) [Vol rate/Area] 77 mL/min/{1.73_m2} >60 [facility] Comment on above: mL/min/1.73m2 CKD-EP I Creatinine Equation (2020) Hematocrit Auto (Bld) [Volum e fraction]Ordered By: Sherice Fernandez on 02-03-2025 Hematocrit (Bld) [Volume fraction] 32.6 % Low 37-47 [facility] Hemoglobin measurementOrdere d By: [facility] on 02-03-2025 Hemoglobin (Bld) [Mass/Vol] 10.7 g/dL Low 12.0-15.0 [facility] Immature granulocytes/100 WB C Auto (Bld)Ordered By: [facility] Fern[facility] on 02-03-2025 Immature granulocytes/100 WBC (Bld) 0.300 % 0.0-0.9 [facility] Comment on above: IG% - Immature Granu locytes (promyelocytes, myelocytes and metamyelocytes) > 1% indicates that a LEFT SHIFT is Present. Laboratory - Chemistry and C hemistry - challengeOrdered By: [facility] Fern[facility] on 02-03-2025 AST [Catalytic activity/Vol] 39 U/L High <32 [facility] Laboratory - Hematology and Cell countsOrdered By: [facility] on 02-03-2025 Anisocytosis Ql (Bld) 1+ [facility] MCV (mean corpuscular volume ) determinationOrdered By: Sherice Fernandez on 02-03-2025 MCV (RBC) [Entitic vol] 92.1 fL 81-99 [facility] Magnesiumon 02-03-2025 Magnesium [Mass/Vol] 1.5 mg/dL Normal 1.5-2.2 [facility] Comment on above: Performed By: #### L 501.5200, L100.0100, L501.9520, L500.4050, L506.0400, L501.2300 ####[facility] [address] [place], [place], [id number] Magnesium measurement (mass/ volume)Ordered By: Sherice Fernandez on 02-03-2025 Magnesium (Unsp spec) [Mass/Vol] 1.5 mg/dL 1.5-2.2 [facility] Mean corpuscular hemoglobin (MCH) determinationOrdered By: Sherice Fernandez on 02-03-2025 MCH (RBC) [Entitic mass] 30.2 pg 27.0-32.0 [facility] Mean corpuscular hemoglobin concentration (MCHC) determinationOrdered By: Sherice Fernandez on 02-03-2025 MCHC (RBC) [Mass/Vol] 32.8 g/dL 32-36 [facility] Mean platelet volume determi nationOrdered By: Sherice Fernandez on 02-03-2025 Platelet mean volume (Bld) [Entitic vol] 9.6 fL 6.2-12.0 [facility] Monocyte percentageOrdered B y: Sherice Fernandez on 02-03-2025 Monocytes/100 WBC (Bld) 22.7 % High 0-10 [facility] Neutrophil percentageOrdered By: Sherice Fernandez on 02-03-2025 Neutrophils/100 WBC (Bld) 54.3 % 47-70 [facility] No Panel InformationOrdered By: Sherice Fernandez on 02-03-2025 1+ [facility] 39 U/L High <32 [facility] Nucleated red blood cell per centageOrdered By: Sherice Fernandez on 02-03-2025 Nucleated RBC/100 WBC (Bld) [Ratio] 0 % 0-5 [facility] Oncology Visit Reporton 01-16 Oncology Visit Report Normal [facility] Phosphoruson 02-03-2025 Phosphate [Mass/Vol] 4.0 mg/dL Normal 2.7-4.5 [facility] Comment on above: Performed By: #### L 501.5200, L100.0100, L501.9520, L500.4050, L506.0400, L501.2300 ####[facility] [address] [place], [place], [id number] Platelet countOrdered By: Melva Fernandez on 02-03-2025 Platelets (Bld) [#/Vol] 356 10*3/uL 150-450 [facility] Potassium measurement (mass/ volume)Ordered By: Sherice Fernandez on 02-03-2025 Potassium (Unsp spec) [Mass/Vol] 4.0 mmol/L 3.3-5.1 [facility] RBC Auto (Bld) [#/Vol]Ordere d By: Sherice Fernandez on 02-03-2025 RBC (Bld) [#/Vol] 3.54 10*6/uL Low 4.2-5.4 [facility] Serum creatinine measurement (mass/volume)Ordered By: Sherice Fernandez on 02-03-2025 Creatinine [Mass/Vol] 0.82 mg/dL 0.70-1.20 [facility] Serum globulin measurementOr dered By: Sherice Fernandez on 02-03-2025 Globulin (S) [Mass/Vol] 3.3 g/dL 2.2-4.2 [facility] Serum glucose measurement (m ass/volume)Ordered By: Sherice Fernandez on 02-03-2025 Glucose [Mass/Vol] 108 mg/dL High 70-99 [facility] Serum or plasma alanine encarnacion otransferase (ALT) measurementOrdered By: Sherice Fernandez on 02-03-2025 ALT [Catalytic activity/Vol] 10 U/L <35 [facility] Serum or plasma albumin jayro urement (mass/volume)Ordered By: Sherice Fernandez on 02-03-2025 Albumin [Mass/Vol] 3.4 g/dL 3.4-4.8 [facility] Serum or plasma albumin/glob ulin mass ratioOrdered By: Sherice Fernandez on 02-03-2025 Albumin/Globulin [Mass ratio] 1.0 {ratio} 0.9-2.4 [facility] Serum or plasma alkaline lukas sphatase measurementOrdered By: Sherice Fernandez on 02-03-2025 ALP [Catalytic activity/Vol] 162 U/L High 35-104 [facility] Serum or plasma calcium jayro urement (mass/volume)Ordered By: Sherice Fernandez on 02-03-2025 Calcium [Mass/Vol] 9.4 mg/dL 7.6-11.0 [facility] Serum or plasma urea nitroge n measurement (mass/volume)Ordered By: Sherice Fernandez on 02-03-2025 Urea nitrogen [Mass/Vol] 7 mg/dL 4-19 [facility] Sodium levelOrdered By: Carmella Fernandez on 02-03-2025 Sodium [Moles/Vol] 141 mmol/L 133-145 [facility] T4 Free Directon 02-03-2025 T4 FREE DIRECT 0.90 ng/dL Normal 0.76-1.46 [facility] Comment on above: Performed By: #### L 501.5200, L100.0100, L501.9520, L500.4050, L506.0400, L501.2300 ####[facility] [address] [place], [address] T4 freeOrdered By: Sherice burciaga on 02-03-2025 Free T4 [Mass/Vol] 0.90 ng/dL 0.76-1.46 [facility] TSH DL <= 0.005 mIU/L QnOrde red By: Sherice Fernandez on 02-03-2025 TSH Qn 3.490 uIU/mL 0.300-4.200 [facility] Thyroid Stim Hormone (TSH)on 02-03-2025 TSH 3.490 uIU/mL Normal 0.300-4.200 [facility] Comment on above: Performed By: #### L 501.5200, L100.0100, L501.9520, L500.4050, L506.0400, L501.2300 ####[facility] [address] [place], [address] Total proteinOrdered By: Nain Fernandez on 02-03-2025 Protein [Mass/Vol] 6.6 g/dL 5.9-8.4 [facility] White blood cell (WBC) count Ordered By: Sherice Fernandez on 02-03-2025 WBC (Bld) [#/Vol] 5.7 10*3/uL 4.4-11.0 [facility] 01-26-2025 CN Office Visit (FAMPWS) BETSY RODRIGEZ ([id number]) 1955 F Date Time Provider Department 01/26/25 1:20 [facility] visit today, we recorded the following information about you: Temperature Pulse Respiration Blood pressure 99.3 degrees 80/minute 16/minute 116/66 Weight 64 kg Girish Lemos MD 01/26/2025 1:43 PM Signed Chief Complaint Patient presents with: Cough: Non-productive Throat Problem: Hoarse and sore sinus congestion with occasional green mucus Perspiration Recording using Pathable software for draft documentation of the visit was discussed with the patient/authorized graphic art 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 Patient/authorized graphic art sales representative agreed to proceed HPI Betsy [...] III (moderate) (HCC) Colon polyp tubular adenoma [address] 07/16 to 08/17 DDD (degenerative disc disease), lumbar seeing Dr. Johnson Dysphagia Dr. 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) Obesity (BMI 30.0-34.9) Other pulmonary embolism without acute cor pulmonale (HCC) Pneumonia due to [facility]- virus Requiring intubation Small cell lung cancer [...] Known Problems Brother Stroke Maternal Grandmother or [place], patient unsure Coronary Artery Disease Maternal Grandfather Alcohol abuse Paternal Grandfather Patient Allergies ALLERGIES Allergen Reactions Meagan Inhibitors Rash Codeine Vomiting, Other: See Comments Headache Remeron [Mirtazapin* Other: See Comments Fatigue Dicrbfg-Mko-Lbl Red* Myalgia [place] Unknown Zetia [Ezetimibe] Myalgia Current Medications Current [...] hours as needed for pain. mv,jaci,iron,mn/folic acid/chol (HICK-FTQS-DXFMX, PABA, ORAL) Take 1 tablet by mouth once daily. Minoxidil 2 % external solution Apply 1 mL to affected area twice daily. albuterol (PROVENTIL) 2.5 mg /3 mL (more content not included)... Normal [facility] XR CHEST 2V FRONTAL/LATon XR CHEST 2V [...] an approximately 2 cm left perihilar mass Automotive Services Manager: CHRISTY Transcribe Date/Time: Jan 26 2025 1:53P Dictated by : RAJIV DONOVAN MD This examination was interpreted and the report reviewed and electronically signed by: RAJIV DONOVAN MD on Jan 26 2025 1:58PM EST [id number] CN Normal [facility] XR Chest PA and Lateralon IMPRESSION: 1. Stable findings of underlying interstitial lung disease. 2. Redemonstration of an approximately 2 cm left perihilar mass Automotive Services Manager: CHRISTY Transcribe Date/Time: Jan 26 2025 1:53P Dictated by : RAJIV DONOVAN MD This examination was interpreted and the report reviewed and electronically signed by: RAJIV DONOVAN MD on Jan 26 2025 1:58PM [facility] DIVISION OF RADIOLOGY * * *Final [...] the upper abdomen. DIVISION OF RADIOLOGY Provider, [facility] - 01/26/2025 * * *Final Report* * [...] an approximately 2 cm left perihilar mass Automotive Services Manager: CHRISTY Transcribe Date/Time: Jan 26 2025 1:53P Dictated by : RAJIV DONOVAN MD This examination was interpreted and the report reviewed and electronically signed by: RAJIV DONOVAN MD on Jan 26 2025 1:58PM EST [facility] Radiology Study observation (narrative) Anant schneider [facility] XR Chest PA and LateralOrder ed By: [facility] Provider on 01-26-2025 [facility] CNOVon 01-13-2025 CNOV Office Visit (FAMPWS) BETSY RODRIGEZ ([id number]) 1955 F Date Time Provider Department 01/13/25 9:20 AM GIRISH LEMOS FAMPWS During your visit today, we recorded the following information about you: Pulse Respiration Blood pressure Weight 72/minute 16/minute 104/60 62.1 kg Girish Lemos MD 01/13/2025 10:35 AM Signed Chief Complaint Patient presents with: Hospital F/U [facility] Betsyjann Rodrigez is a 69 year old female who presents here today for Hospital discharge follow up. 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 Johnson Dysphagia Dr. 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) Obesity (BMI 30.0-34.9) Other pulmonary embolism without acute cor pulmonale (HCC) [facility] Requ[facility] intubation Small [...] Known Problems Brother Stroke Maternal Grandmother or [place], patient unsure Coronary Artery Disease Maternal Grandfather Alcohol abuse Paternal Grandfather Patient Allergies ALLERGIES Allergen Reactions Meagan Inhibitors Rash Codeine Vomiting, Other: See Comments Headache Remeron [Mirtazapin* Other: See Comments Fatigue Qjsvbbw-Iae-Gbd Red* Myalgia [place] Unknown Zetia [Ezetimibe] Myalgia Current Medications Current [...] by trina (more content not included)... Normal [facility] Absolute lymphocyte countOrd ered By: Estrella Cabezas on 01-10-2025 Lymphocytes Auto (Unsp spec) [#/Vol] 1.88 10*3/uL 0.83-4.51 [facility] Absolute neutrophil countOrd ered By: Estrella Cabezas on 01-10-2025 Neutrophils (Bld) [#/Vol] 43.6 10*3/uL High 2.0-7.7 [facility] Anion gap in Serum or Plasma Ordered By: Estrella Cabezas on 01-10-2025 Anion gap [Moles/Vol] 11 mmol/L 5-15 [facility] BUN/creatinine ratioOrdered By: Estrella Cabezas on 01-10-2025 Urea nitrogen/Creatinine [Mass ratio] 21.6 mg/mg High 10-20 [facility] Basic Metabolic Profile (BMP )on 01-10-2025 BUN/CRE 21.6 RATIO High 10-20 [facility] Comment on above: Performed By: #### L 500.2500, L100.0100 ####[facility] [address] [place], [address] Calcium [Mass/Vol] 8.5 mg/dL Normal 7.6-11.0 [facility] Comment on above: Performed By: #### L 500.2500, L100.0100 ####[facility] [address] [place], [address] Chloride [Moles/Vol] 104 mmol/L Normal 98-108 [facility] Comment on above: Performed By: #### L 500.2500, L100.0100 ####[facility] [address] [place], [address] CO2 [Moles/Vol] 26.7 mmol/L Normal 21.0-32.0 [facility] [facility] Comment on above: Performed By: #### L 500.2500, L100.0100 ####[facility] [address] [place], [address] Creatinine [Mass/Vol] 0.87 mg/dL Normal 0.70-1.20 [facility] Comment on above: Performed By: #### L 500.2500, L100.0100 ####[facility] [address] [place], [address] ECRCL 54.90 ml/min Normal 50-250 [facility] Comment on above: Performed By: #### L 500.2500, L100.0100 ####[facility] [address] [place], [address] GAP 11 Normal 5-15 [facility] Comment on above: Performed By: #### L 500.2500, L100.0100 ####[facility] [address] [place], [address] GFR/1.73 sq M.predicted among non-blacks MDRD (S/P/Bld) [Vol rate/Area] 72 mL/min/{1.73_m2} Normal >60 [facility] Comment on above: Result Comment: mL/m in/1.73m2 CKD-EPI Creatinine Equation (2020) Performed By: #### L 500.2500, L100.0100 ####[facility] [address] [place], [address] Glucose [Mass/Vol] 77 mg/dL Normal 70-99 [facility] Comment on above: Performed By: #### L 500.2500, L100.0100 ####[facility] [address] [place], [address] Potassium [Moles/Vol] 3.9 mmol/L Normal 3.3-5.1 [facility] Comment on above: Performed By: #### L 500.2500, L100.0100 ####[facility] [address] [place], [address] Sodium [Moles/Vol] 142 mmol/L Normal 133-145 [facility] Comment on above: Performed By: #### L 500.2500, L100.0100 ####[facility] [address] [place], [address] Urea nitrogen [Mass/Vol] 19 mg/dL Normal 4-19 [facility] Comment on above: Performed By: #### L 500.2500, L100.0100 ####[facility] [address] [place], [address] Bedside Glucoseon 01-10-2025 FINGERSTICK GLU 75 mg/dL Normal 74-106 [facility] Comment on above: Result Comment: FABRIZIO MAKI OF PATIENT CARE PER NURSING PROTOCOL Performed By: #### L 501.080 ####[facility] [address] [place], [address] FINGERSTICK GLU 116 mg/dL High 74-106 [facility] Comment on above: Result Comment: FABRIZIO MAKI OF PATIENT CARE PER NURSING PROTOCOL Performed By: #### L 501.080 ####[facility] [address] [place], [place], [id number] Blood band neutrophil count as percentage of total leukocytesOrdered By: Estrella Cabezas on 01-10-2025 Band form neutrophils/100 WBC (Bld) 1 % 0-5 [facility] Blood lymphocytes/100 leukoc ytesOrdered By: Estrella Cabezas on 01-10-2025 Lymphocytes/100 WBC (Bld) 4 % Low 19-41 [facility] Blood metamyelocytes/100 isa kocytesOrdered By: Estrella Cabezas on 01-10-2025 Metamyelocytes/100 WBC (Bld) 2 % High 0-1 [facility] Blood monocytes/100 leukocyt esOrdered By: Estrella Cabezas on 01-10-2025 Monocytes/100 WBC (Bld) 1 % 0-10 [facility] Blood segmented neutrophils/ 100 leukocytesOrdered By: Estrella Cabezas on 01-10-2025 Segmented neutrophils/100 WBC (Bld) 92 % High 47-70 [facility] COVID 19 AG RAPID (RN PARAS Ayers)on 01-10-2025 SARS-CoV-2 (COVID-19) RNA DEBBY+probe Ql (Unsp spec) Normal [facility] Comment on above: Performed By: #### M 100.505 ####[facility] [address] [place], [place], [id number] Carbon dioxide, total [Moles /volume] in Central venous bloodOrdered By: Estrella Cabezas on 01-10-2025 CO2 [Moles/Vol] 26.7 mmol/L 21.0-32.0 [facility] Cells counted Molgen (Bld/Ti ss) [#]Ordered By: Estrella Cabezas on 01-10-2025 Differential Total Cells Counted 100 MANUAL DIFF [facility] Chloride assayOrdered By: David Cabezas on 01-10-2025 Chloride [Moles/Vol] 104 mmol/L 98-108 [facility] Discharge Instructionon 12-17 Discharge Instruction Normal [facility] Echocardiogram study reportO rdered By: Santi Hurd on 01-10-2025 Study report [facility] [place] [address] [place] [address] Echo Complete 01/10/25 0851 MR#: [id number] Acct: [id number] Name: BETSY RODRIGEZ Rep #:[id number] 04 : 1955 69 From: Santi Hurd MD Attending Dr: Dr. Jassi Borden MD Status: ADM FARIBA Ordering Dr: Estrella Cabezas MD Date: Location: [facility] Sex: F C Admitted: 01/09/25 Reason [...] Dictated: 01/10/25 0851 Date Transcribed: 01/10/25 1130 [employer]otive Services Manager: Signed [facility] Work Phone: [phone] Erythrocyte distribution wid th (RBC) [Ratio]Ordered By: Estrella Cabezas on 01-10-2025 Erythrocyte distribution width (RBC) [Entitic vol] 59.4 fL High 35.1-43.9 [facility] Erythrocyte distribution wid th ratioOrdered By: Estrella Cabezas on 01-10-2025 Erythrocyte distribution width (RBC) [Ratio] 18.6 % High 11.6-14.6 [facility] Erythrocyte distribution wid th standard deviationOrdered By: Estrella Cabezas on 01-10-2025 Erythrocyte distribution width (RBC) [Ratio] 59.4 fl High 35.1-43.9 [facility] Estimation of creatinine lubna aranceOrdered By: Estrella Cabezas on 01-10-2025 Estimated Creatinine Clearance Calc 54.90 ml/min 50-250 [facility] GFR/1.73 sq M.predicted mary g non-blacks MDRD (S/P/Bld) [Vol rate/Area]Ordered By: Estrella Cabezas on 01-10-2025 Estimated GFR (MDRD) Non-Af Amer 72 >60 [facility] Comment on above: mL/min/1.73m2 CKD-EP I Creatinine Equation (2020) Glomerular filtration rate ( GFR) estimation/1.73 sq m using serum, plasma, or whole bOrdered By: Estrella Cabezas on 01-10-2025 GFR/1.73 sq M.predicted among non-blacks MDRD (S/P/Bld) [Vol rate/Area] 72 mL/min/{1.73_m2} >60 [facility] Comment on above: mL/min/1.73m2 CKD-EP I Creatinine Equation (2020) Glucose measurement at bedsi deOrdered By: Estrella Cabezas on 01-10-2025 Bedside Glucose (Misc Panel) 75 mg/dL 74-106 [facility] Comment on above: MANAGEMENT OF PATIEN T CARE PER NURSING PROTOCOL Glucose [Mass/Vol] 75 mg/dL 74-106 [facility] Comment on above: MANAGEMENT OF PATIEN T CARE PER NURSING PROTOCOL Hematocrit Auto (Bld) [Volum e fraction]Ordered By: Estrella Cabezas on 01-10-2025 Hematocrit (Bld) [Volume fraction] 30.9 % Low 37-47 [facility] Hemoglobin measurementOrdere d By: Estrella Cabezas on 01-10-2025 Hemoglobin (Bld) [Mass/Vol] 10.4 g/dL Low 12.0-15.0 [facility] Lymphocytes Auto (Unsp spec) [#/Vol]Ordered By: Estrella Cabezas on 01-10-2025 Lymphocytes (Bld) [#/Vol] 1.88 10*3/uL 0.83-4.51 [facility] MCV (mean corpuscular volume ) determinationOrdered By: Estrella Cabezas on 01-10-2025 MCV (RBC) [Entitic vol] 89.0 fL 81-99 [facility] Mean corpuscular hemoglobin (MCH) determinationOrdered By: Estrella Cabezas on 01-10-2025 MCH (RBC) [Entitic mass] 30.0 pg 27.0-32.0 [facility] Mean corpuscular hemoglobin concentration (MCHC) determinationOrdered By: Estrella Cabezas on 01-10-2025 MCHC (RBC) [Mass/Vol] 33.7 g/dL 32-36 [facility] Mean platelet volume determi nationOrdered By: Estrella Cabezas on 01-10-2025 Platelet mean volume (Bld) [Entitic vol] 9.8 fL 6.2-12.0 [facility] Neutrophil percentageOrdered By: Estrelal Cabezas on 01-10-2025 Neutrophils (%) (Auto) Not Reportable [facility] Pathologist review Scott (Unsp spec) [Interp]Ordered By: Estrella Cabezas on 01-10-2025 Differential Pathologist's Review May foll [facility] Platelet countOrdered By: David Cabezas on 01-10-2025 Platelets (Bld) [#/Vol] 419 10*3/uL 150-450 [facility] Platelet estimateOrdered By: Estrella Cabezas on 01-10-2025 Platelets LM Ql (Bld) A ADEQ [facility] Platelets LM Ql (Bld)Ordered By: Estrella Cabezas on 01-10-2025 Platelet Estimate A [facility] Potassium (Unsp spec) [Mass/ Vol]Ordered By: Estrella Cabezas on 01-10-2025 Potassium [Moles/Vol] 3.9 mmol/L 3.3-5.1 [facility] Potassium measurement (mass/ volume)Ordered By: Estrella Cabezas on 01-10-2025 Potassium (Unsp spec) [Mass/Vol] 3.9 mmol/L 3.3-5.1 [facility] RBC Auto (Bld) [#/Vol]Ordere d By: Estrella Cabezas on 01-10-2025 RBC (Bld) [#/Vol] 3.47 10*6/uL Low 4.2-5.4 [facility] Review by pathologistOrdered By: Estrella Cabezas on 01-10-2025 Pathologist review Scott (Unsp spec) [Interp] Marah oconnor [facility] Pathologist review Scott (Unsp spec) [Interp] Reviewed [facility] Comment on above: Previous reported re sult: Marah oconnor Edited by: ELGIN on 02/05/25:1614SEE REPORT IN PATIENT'S EMR AMENDED REPORT 02/05/25 1614 PATH REV previously reported as: Marah oconnor Segmented neutrophils/100 WB C (Bld)Ordered By: Estrella Cabezas on 01-10-2025 Neutrophils/100 WBC (Bld) 92 % High 47-70 [facility] Serum creatinine measurement (mass/volume)Ordered By: Estrella Cabezas on 01-10-2025 Creatinine [Mass/Vol] 0.87 mg/dL 0.70-1.20 [facility] Serum glucose measurement (m ass/volume)Ordered By: Estrella Cabezas on 01-10-2025 Glucose [Mass/Vol] 77 mg/dL 70-99 [facility] Serum or plasma calcium jayro urement (mass/volume)Ordered By: Estrella Cabezas on 04-26-2025 Calcium [Mass/Vol] 8.5 mg/dL 7.6-11.0 [facility] Serum or plasma urea nitroge n measurement (mass/volume)Ordered By: Estrella Cabezas on 01-10-2025 Urea nitrogen [Mass/Vol] 19 mg/dL 4-19 [facility] Sodium levelOrdered By: Kenia Cabezas on 01-10-2025 Sodium [Moles/Vol] 142 mmol/L 133-145 [facility] Total cell countOrdered By: Estrella Cabezas on 01-10-2025 Cells counted Molgen (Bld/Tiss) [#] 100 MANUAL DIFF [facility] White blood cell (WBC) count Ordered By: Estrella Cabezas on 01-10-2025 WBC (Bld) [#/Vol] 46.9 10*3/uL High 4.4-11.0 [facility] Comment on above: CRITICAL VALUE MAIN D TO MNIVYDYSA83/26/25 0548 Tobi Yousif.RESULTS READ BACK BY SAME. 12 Lead EKGon 01-09-2025 12 Lead EKG Normal [facility] Automated lymphocyte count a s percentage of total leukocytesOrdered By: Austin Mack on 01-09-2025 Lymphocytes/100 WBC Auto (Unsp spec) 4.7 % Low 19-41 [facility] Basic Metabolic Profile (BMP )on 01-09-2025 BUN/CRE 25.5 RATIO High 10-20 [facility] Comment on above: Performed By: #### L 100.0100, L500.2500, L501.4021 ####[facility] [address] [place], [address] Calcium [Mass/Vol] 8.8 mg/dL Normal 7.6-11.0 [facility] Comment on above: Performed By: #### L 100.0100, L500.2500, L501.4021 ####[facility] [address] [place], [address] Chloride [Moles/Vol] 107 mmol/L Normal 98-108 [facility] Comment on above: Performed By: #### L 100.0100, L500.2500, L501.4021 ####[facility] [address] [place], [address] CO2 [Moles/Vol] 20.1 mmol/L Low 21.0-32.0 [facility] Comment on above: Performed By: #### L 100.0100, L500.2500, L501.4021 ####[facility] [address] [place], [address] Creatinine [Mass/Vol] 0.67 mg/dL Low 0.70-1.20 [facility] Comment on above: Performed By: #### L 100.0100, L500.2500, L501.4021 ####[facility] [address] [place], [address] ECRCL 61.24 ml/min Normal 50-250 [facility] Comment on above: Performed By: #### L 100.0100, L500.2500, L501.4021 ####[facility] [address] [place], [address] GAP 14 Normal 5-15 [facility] Comment on above: Performed By: #### L 100.0100, L500.2500, L501.4021 ####[facility] [address] [place], [address] GFR/1.73 sq M.predicted among non-blacks MDRD (S/P/Bld) [Vol rate/Area] 94 mL/min/{1.73_m2} Normal >60 [facility] Comment on above: Result Comment: mL/m in/1.73m2 CKD-EPI Creatinine Equation (2020) Performed By: #### L 100.0100, L500.2500, L501.4021 ####[facility] [address] [place], [address] Glucose [Mass/Vol] 64 mg/dL Low 70-99 [facility] Comment on above: Performed By: #### L 100.0100, L500.2500, L501.4021 ####[facility] [address] [place], [address] Potassium [Moles/Vol] 3.6 mmol/L Normal 3.3-5.1 [facility] Comment on above: Performed By: #### L 100.0100, L500.2500, L501.4021 ####[facility] [address] [place], [address] Sodium [Moles/Vol] 141 mmol/L Normal 133-145 [facility] Comment on above: Performed By: #### L 100.0100, L500.2500, L501.4021 ####[facility] [address] [place], [address] Urea nitrogen [Mass/Vol] 17 mg/dL Normal 4-19 [facility] Comment on above: Performed By: #### L 100.0100, L500.2500, L501.4021 ####[facility] [address] [place], [address] Basophil percentageOrdered B y: Austin Mack on 01-09-2025 Basophils/100 WBC (Bld) 0.1 % 0-1 [facility] CBC W/Diff, Automatedon 12-17 PLT EST SLT INC Normal ADEQ [facility] Comment on above: Performed By: #### L 100.0100, L500.2500, L501.4021 ####[facility] [address] [place], [address] COVID-19 virus antigen assay Ordered By: Estrella Cabezas on 01-09-2025 SARS-CoV-2 (COVID-19) Ag IA.rapid Ql (Resp) [facility] Chest 1 View (Portable)on Chest 1 View (Portable) Normal [facility] Echo Completeon 01-09-2025 Echo Complete Normal [facility] Emergency Department Summary on 01-09-2025 Emergency Department Summary Normal [facility] Eosinophil percentageOrdered By: Austin Mack on 01-09-2025 Eosinophils/100 WBC (Bld) 0.0 % 0-5 [facility] H AND P Exam - Hospitaliston 01-09-2025 H&P Exam - Hospitalist Normal [facility] Immature granulocytes/100 WB C Auto (Bld)Ordered By: Austin Mack on 01-09-2025 Immature granulocytes/100 WBC (Bld) 1.800 % High 0.0-0.9 [facility] Comment on above: IG% - Immature Granu locytes (promyelocytes, myelocytes and metamyelocytes) > 1% indicates that a LEFT SHIFT is Present. L499.0042on 01-09-2025 Trop T High Sen 19 ng/L High <=14 [facility] Comment on above: Performed By: #### L 499.0042 ####[facility] [address] [place], [address] L499.0043on 01-09-2025 Trop T High Sen 13 ng/L Normal <=14 [facility] Comment on above: Performed By: #### L 499.0043 ####[facility] [address] [place], [address] L501.4021on 01-09-2025 Trop T High Sen 12 ng/L Normal <=14 [facility] Comment on above: Performed By: #### L 100.0100, L500.2500, L501.4021 ####[facility] [address] [place], [address] L503.7505on 01-09-2025 Natriuretic peptide B (Bld) [Mass/Vol] 3119 pg/mL High <=900 [facility] Comment on above: Result Comment: Hear t Failure Unlikely: < 300 pg/mLHeart Failure Likely< 50 Years: > 450 pg/mL50-75 Years: > 900 pg/mL>75 Years: > 1800 pg/mL Performed By: #### L 503.7505 ####[facility] [address] [place], [place], [id number] Lymphocytes/100 WBC Auto (Un sp spec)Ordered By: Austin Mack on 01-09-2025 Lymphocytes/100 WBC (Bld) 4.7 % Low 19-41 [facility] Monocyte percentageOrdered B y: Austin Mack on 01-09-2025 Monocytes/100 WBC (Bld) 0.2 % 0-10 [facility] Natriuretic peptide.B prohor milan N-Terminal [Mass/Vol]Ordered By: Austin aMck on 01-09-2025 Natriuretic peptide B (Bld) [Mass/Vol] 3119 pg/mL High <900 [facility] Comment on above: Heart Failure Unlike ly: < 300 pg/mLHeart Failure Likely< 50 Years: > 450 pg/mL50-75 Years: > 900 pg/mL>75 Years: > 1800 pg/mL Natriuretic peptide.B prohor milan N-Terminal [Mass/volume] in Serum or PlasmaOrdered By: Austin Mack on 01-09-2025 Natriuretic peptide.B prohormone N-Terminal [Mass/Vol] 3119 pg/mL High <900 [facility] Comment on above: Heart Failure Unlike ly: < 300 pg/mLHeart Failure Likely< 50 Years: > 450 pg/mL50-75 Years: > 900 pg/mL>75 Years: > 1800 pg/mL Nucleated red blood cell per centageOrdered By: Austin Mack on 01-09-2025 Nucleated RBC/100 WBC (Bld) [Ratio] 0 % 0-5 [facility] RESPIRATORY PANEL MOLECULARo n 01-09-2025 RP PANEL Normal [facility] Comment on above: Performed By: #### M 100.638 ####[facility] [address] [place], [address] Respiratory pathogens DNA an d RNA panel DEBBY+probe (Resp)Ordered By: Estrella Cabezas on 01-09-2025 Respiratory Panel (PCR) [facility] Respiratory pathogens detect ion panel by molecular detection methodOrdered By: Estrella Cabezas on 01-09-2025 Respiratory pathogens DNA and RNA panel DEBBY+probe (Resp) [facility] SARS-CoV-2 (COVID-19) Ag IA. rapid Ql (Resp)Ordered By: Estrella Cabezas on 01-09-2025 SARS-CoV-2 Antigen (Rapid) [facility] Troponin T.cardiac High sens itivity method [Mass/Vol]Ordered By: Austin Mack on 01-09-2025 Troponin T High Sensitivity 4 Hour 13 ng/L <14 [facility] Troponin T High Sensitivity 2 Hour 19 ng/L High <14 [facility] Troponin T High Sensitivity 12 ng/L <14 [facility] Troponin T.cardiac [Mass/vol ume] in Serum or Plasma by High sensitivity methodOrdered By: Austin Mack on 01-09-2025 Troponin T.cardiac High sensitivity method [Mass/Vol] 13 ng/L <14 [facility] Troponin T.cardiac High sensitivity method [Mass/Vol] 19 ng/L High <14 [facility] Troponin T.cardiac High sensitivity method [Mass/Vol] 12 ng/L <14 [facility] Absolute neutrophil countOrd ered By: Sherice Fernandez on 01-06-2025 Neutrophils (Bld) [#/Vol] 5.9 10*3/uL 2.0-7.7 [facility] Anion gap in Serum or Plasma Ordered By: Sherice Fernandez on 01-06-2025 Anion gap [Moles/Vol] 13 mmol/L 5-15 [facility] BUN/creatinine ratioOrdered By: Sherice Fernandez on 01-06-2025 Urea nitrogen/Creatinine [Mass ratio] 7.9 mg/mg Low 10-20 [facility] Basophil percentageOrdered B y: Sherice Fernandez on 01-06-2025 Basophils/100 WBC (Bld) 0.7 % 0-1 [facility] Bilirubin, totalOrdered By: Sherice Fernandez on 01-06-2025 Bilirubin [Mass/Vol] 0.62 mg/dL 0.00-1.30 [facility] Blood manual differential co mment interpretation (narrative result)Ordered By: Sherice Fernandez on 01-06-2025 Manual differential comment Scott (Bld) [Interp] SCANNED [facility] Comment on above: MONOCYTOSIS NOTED CBC W/Diff, Automatedon 12-17 PATH REV Reviewed Normal [facility] Comment on above: Result Comment: SEE REPORT IN PATIENT'S EMR AMENDED REPORT 01/06/25 1328 PATH REV previously reported as: January Performed By: #### L 501.5200, L500.2500, L100.0100, L501.2300 ####[facility] [address] [place], [address] Absolute Lymph 1.05 X10 3/uL Normal 0.83-4.51 [facility] Comment on above: Performed By: #### L 506.0400, L100.0100, L501.9520, L501.5200, L501.2300, L500.4050 ####[facility] [address] [place], [address] Absolute Neut 5.9 X10 3/uL Normal 2.0-7.7 [facility] Comment on above: Performed By: #### L 506.0400, L100.0100, L501.9520, L501.5200, L501.2300, L500.4050 ####[facility] [address] [place], [address] Basophils/100 WBC (Bld) 0.7 % Normal 0-1 [facility] Comment on above: Performed By: #### L 506.0400, L100.0100, L501.9520, L501.5200, L501.2300, L500.4050 ####[facility] [address] [place], [address] Eosinophils/100 WBC (Bld) 0.3 % Normal 0-5 [facility] Comment on above: Performed By: #### L 506.0400, L100.0100, L501.9520, L501.5200, L501.2300, L500.4050 ####[facility] [address] [place], [address] Erythrocyte distribution width (RBC) [Ratio] 18.2 % High 11.6-14.6 [facility] Comment on above: Performed By: #### L 506.0400, L100.0100, L501.9520, L501.5200, L501.2300, L500.4050 ####[facility] [address] [place], [address] Hematocrit (Bld) [Volume fraction] 33.1 % Low 37-47 [facility] Comment on above: Performed By: #### L 506.0400, L100.0100, L501.9520, L501.5200, L501.2300, L500.4050 ####[facility] [address] [place], [address] Hemoglobin (Bld) [Mass/Vol] 10.8 g/dL Low 12.0-15.0 [facility] Comment on above: Performed By: #### L 506.0400, L100.0100, L501.9520, L501.5200, L501.2300, L500.4050 ####[facility] [address] [place], [address] IG% 1.100 High 0.0-0.9 [facility] Comment on above: Result Comment: IG% - Immature Granulocytes (promyelocytes, myelocytes andmetamyelocytes) > 1% indicates that a LEFT SHIFT is Present. Performed By: #### L 506.0400, L100.0100, L501.9520, L501.5200, L501.2300, L500.4050 ####[facility] [address] [place], [address] Lymphocytes/100 WBC (Bld) 11.7 % Low 19-41 [facility] Comment on above: Performed By: #### L 506.0400, L100.0100, L501.9520, L501.5200, L501.2300, L500.4050 ####[facility] [address] [place], [address] MCH (RBC) [Entitic mass] 29.3 pg Normal 27.0-32.0 [facility] Comment on above: Performed By: #### L 506.0400, L100.0100, L501.9520, L501.5200, L501.2300, L500.4050 ####[facility] [address] [place], [address] MCHC (RBC) [Mass/Vol] 32.6 g/dL Normal 32-36 [facility] Comment on above: Performed By: #### L 506.0400, L100.0100, L501.9520, L501.5200, L501.2300, L500.4050 ####[facility] [address] [place], [address] MCV (RBC) [Entitic vol] 89.9 fL Normal 81-99 [facility] Comment on above: Performed By: #### L 506.0400, L100.0100, L501.9520, L501.5200, L501.2300, L500.4050 ####[facility] [address] [place], [address] Monocytes/100 WBC (Bld) 20.0 % High 0-10 [facility] Comment on above: Performed By: #### L 506.0400, L100.0100, L501.9520, L501.5200, L501.2300, L500.4050 ####[facility] [address] [place], [address] Neutrophils/100 WBC (Bld) 66.2 % Normal 47-70 [facility] Comment on above: Performed By: #### L 506.0400, L100.0100, L501.9520, L501.5200, L501.2300, L500.4050 ####[facility] [address] [place], [address] Nucleated RBC (Bld) [#/Vol] 0 10*3/uL Normal 0-5 [facility] Comment on above: Performed By: #### L 506.0400, L100.0100, L501.9520, L501.5200, L501.2300, L500.4050 ####[facility] [address] [place], [address] Platelet mean volume (Bld) [Entitic vol] 9.9 fL Normal 6.2-12.0 [facility] Comment on above: Performed By: #### L 506.0400, L100.0100, L501.9520, L501.5200, L501.2300, L500.4050 ####[facility] [address] [place], [address] Platelets (Bld) [#/Vol] 483 10*3/uL High 150-450 [facility] Comment on above: Performed By: #### L 506.0400, L100.0100, L501.9520, L501.5200, L501.2300, L500.4050 ####[facility] [address] [place], [address] RBC (Bld) [#/Vol] 3.68 10*6/uL Low 4.2-5.4 [facility] Comment on above: Performed By: #### L 506.0400, L100.0100, L501.9520, L501.5200, L501.2300, L500.4050 ####[facility] [address] [place], [address] RDW SD 59.6 fl High 35.1-43.9 [facility] Comment on above: Performed By: #### L 506.0400, L100.0100, L501.9520, L501.5200, L501.2300, L500.4050 ####[facility] [address] [place], [address] WBC (Bld) [#/Vol] 9.0 10*3/uL Normal 4.4-11.0 [facility] Comment on above: Performed By: #### L 506.0400, L100.0100, L501.9520, L501.5200, L501.2300, L500.4050 ####[facility] [address] [place], [address] Carbon dioxide, total [Moles /volume] in Central venous bloodOrdered By: Sherice Fernandez on 01-06-2025 CO2 [Moles/Vol] 24.3 mmol/L 21.0-32.0 [facility] Chloride assayOrdered By: Melva Fernandez on 01-06-2025 Chloride [Moles/Vol] 105 mmol/L 98-[facility] [facility] Comprehensive Metabolic Prof ilon 01-06-2025 Albumin [Mass/Vol] 3.2 g/dL Low 3.4-4.8 [facility] Comment on above: Performed By: #### L 506.0400, L100.0100, L501.9520, L501.5200, L501.2300, L500.4050 ####[facility] [address] [place], [address] Albumin/Globulin [Mass ratio] 0.8 {ratio} Low 0.9-2.4 [facility] Comment on above: Performed By: #### L 506.0400, L100.0100, L501.9520, L501.5200, L501.2300, L500.4050 ####[facility] [address] [place], [address] ALK PHOS 269 U/L High 35-104 [facility] Comment on above: Performed By: #### L 506.0400, L100.0100, L501.9520, L501.5200, L501.2300, L500.4050 ####[facility] [address] [place], [address] ALT [Catalytic activity/Vol] 28 U/L Normal <=34 [facility] Comment on above: Performed By: #### L 506.0400, L100.0100, L501.9520, L501.5200, L501.2300, L500.4050 ####[facility] [address] [place], [address] AST [Catalytic activity/Vol] 77 U/L High <=31 [facility] Comment on above: Performed By: #### L 506.0400, L100.0100, L501.9520, L501.5200, L501.2300, L500.4050 ####[facility] [address] [place], [address] Bilirubin [Mass/Vol] 0.62 mg/dL Normal 0.00-1.30 [facility] Comment on above: Performed By: #### L 506.0400, L100.0100, L501.9520, L501.5200, L501.2300, L500.4050 ####[facility] [address] [place], [address] BUN/CRE 7.9 RATIO Low 10-20 [facility] Comment on above: Performed By: #### L 506.0400, L100.0100, L501.9520, L501.5200, L501.2300, L500.4050 ####[facility] [address] [place], [address] Calcium [Mass/Vol] 8.8 mg/dL Normal 7.6-11.0 [facility] Comment on above: Performed By: #### L 506.0400, L100.0100, L501.9520, L501.5200, L501.2300, L500.4050 ####[facility] [address] [place], [address] Chloride [Moles/Vol] 105 mmol/L Normal 98-108 [facility] Comment on above: Performed By: #### L 506.0400, L100.0100, L501.9520, L501.5200, L501.2300, L500.4050 ####[facility] [address] [place], [address] CO2 [Moles/Vol] 24.3 mmol/L Normal 21.0-32.0 [facility] Comment on above: Performed By: #### L 506.0400, L100.0100, L501.9520, L501.5200, L501.2300, L500.4050 ####[facility] [address] [place], [address] Creatinine [Mass/Vol] 0.77 mg/dL Normal 0.70-1.20 [facility] Comment on above: Performed By: #### L 506.0400, L100.0100, L501.9520, L501.5200, L501.2300, L500.4050 ####[facility] [address] [place], [address] ECRCL 54.13 ml/min Normal 50-250 [facility] Comment on above: Performed By: #### L 506.0400, L100.0100, L501.9520, L501.5200, L501.2300, L500.4050 ####[facility] [address] [place], [address] GAP 13 Normal 5-15 [facility] Comment on above: Performed By: #### L 506.0400, L100.0100, L501.9520, L501.5200, L501.2300, L500.4050 ####[facility] [address] [place], [address] GFR/1.73 sq M.predicted among non-blacks MDRD (S/P/Bld) [Vol rate/Area] 83 mL/min/{1.73_m2} Normal >60 [facility] Comment on above: Result Comment: mL/m in/1.73m2 CKD-EPI Creatinine Equation (2020) Performed By: #### L 506.0400, L100.0100, L501.9520, L501.5200, L501.2300, L500.4050 ####[facility] [address] [place], [address] Globulin (S) [Mass/Vol] 4.0 g/dL Normal 2.2-4.2 [facility] Comment on above: Performed By: #### L 506.0400, L100.0100, L501.9520, L501.5200, L501.2300, L500.4050 ####[facility] [address] [place], [address] Glucose [Mass/Vol] 126 mg/dL High 70-99 [facility] Comment on above: Performed By: #### L 506.0400, L100.0100, L501.9520, L501.5200, L501.2300, L500.4050 ####[facility] [address] [place], [address] Potassium [Moles/Vol] 4.4 mmol/L Normal 3.3-5.1 [facility] Comment on above: Performed By: #### L 506.0400, L100.0100, L501.9520, L501.5200, L501.2300, L500.4050 ####[facility] [address] [place], [address] Sodium [Moles/Vol] 142 mmol/L Normal 133-145 [facility] Comment on above: Performed By: #### L 506.0400, L100.0100, L501.9520, L501.5200, L501.2300, L500.4050 ####[facility] [address] [place], [place], [phone]) T PROT 7.2 g/dL Normal 5.9-8.4 [facility] Comment on above: Performed By: #### L 506.0400, L100.0100, L501.9520, L501.5200, L501.2300, L500.4050 ####[facility] [address] [place], [address] Urea nitrogen [Mass/Vol] 6 mg/dL Normal 4-19 [facility] Comment on above: Performed By: #### L 506.0400, L100.0100, L501.9520, L501.5200, L501.2300, L500.4050 ####[facility] [address] [place], [address] Eosinophil percentageOrdered By: Sherice Fernandez on 01-06-2025 Eosinophils/100 WBC (Bld) 0.3 % 0-5 [facility] Erythrocyte distribution wid th (RBC) [Ratio]Ordered By: Sherice Fernandez on 01-06-2025 Erythrocyte distribution width (RBC) [Entitic vol] 59.6 fL High 35.1-43.9 [facility] Erythrocyte distribution wid th ratioOrdered By: [facility] on 01-06-2025 Erythrocyte distribution width (RBC) [Ratio] 18.2 % High 11.6-14.6 [facility] Estimation of creatinine lubna aranceOrdered By: [facility] Fern[facility] on 01-06-2025 Estimated Creatinine Clearance Calc 54.13 ml/min 50-250 [facility] GFR/1.73 sq M.predicted mary g non-blacks MDRD (S/P/Bld) [Vol rate/Area]Ordered By: Sherice Fernandez on 01-06-2025 Estimated GFR (MDRD) Non-Af Amer 83 >60 [facility] Comment on above: mL/min/1.73m2 CKD-EP I Creatinine Equation (2020) Hematocrit Auto (Bld) [Volum e fraction]Ordered By: Sherice Fernandez on 01-06-2025 Hematocrit (Bld) [Volume fraction] 33.1 % Low 37-47 [facility] Hemoglobin measurementOrdere d By: Sherice Fernandez on 01-06-2025 Hemoglobin (Bld) [Mass/Vol] 10.8 g/dL Low 12.0-15.0 [facility] Immature granulocytes/100 WB C Auto (Bld)Ordered By: [facility] 01-[facility] Immature granulocytes/100 WBC (Bld) 1.100 % High 0.0-0.9 [facility] Comment on above: IG% - Immature Granu locytes (promyelocytes, myelocytes and metamyelocytes) > 1% indicates that a LEFT SHIFT is Present. Laboratory - Chemistry and C hemistry - challengeOrdered By: [facility] on 01-06-2025 AST [Catalytic activity/Vol] 77 U/L High <32 [facility] Lymphocytes Auto (Unsp spec) [#/Vol]Ordered By: [facility] on 01-06-2025 Lymphocytes (Bld) [#/Vol] 1.05 10*3/uL 0.83-4.51 [facility] Lymphocytes/100 WBC Auto (Un sp spec)Ordered By: [facility] on 01-06-2025 Lymphocytes/100 WBC (Bld) 11.7 % Low 19-41 [facility] MCV (mean corpuscular volume ) determinationOrdered By: [facility] on 01-06-2025 MCV (RBC) [Entitic vol] 89.9 fL 81-99 [facility] Magnesiumon 01-06-2025 Magnesium [Mass/Vol] 1.5 mg/dL Normal 1.5-2.2 [facility] Comment on above: Performed By: #### L 506.0400, L100.0100, L501.9520, L501.5200, L501.2300, L500.4050 ####[facility] [address] [place], [place], [phone] Magnesium (Unsp spec) [Mass/ Vol]Ordered By: Sherice Fernandez on 01-06-2025 Magnesium [Mass/Vol] 1.5 mg/dL 1.5-2.2 [facility] Manual differential comment Scott (Bld) [Interp]Ordered By: Sherice Fernandez on 01-06-[address] [facility] Comment on above: MONOCYTOSIS NOTED Mean corpuscular hemoglobin (MCH) determinationOrdered By: Sherice Fernandez on 01-06-2025 MCH (RBC) [Entitic mass] 29.3 pg 27.0-32.0 [facility] Mean corpuscular hemoglobin concentration (MCHC) determinationOrdered By: Sherice Fernandez on 01-06-2025 MCHC (RBC) [Mass/Vol] 32.6 g/dL 32-36 [facility] Mean platelet volume determi nationOrdered By: Sherice Fernandez on 01-06-2025 Platelet mean volume (Bld) [Entitic vol] 9.9 fL 6.2-12.0 [facility] Monocyte percentageOrdered B y: Sherice Fernandez on 01-06-2025 Monocytes/100 WBC (Bld) 20.0 % High 0-10 [facility] Neutrophil percentageOrdered By: Sherice Fernandez on 01-06-2025 Neutrophils/100 WBC (Bld) 66.2 % 47-70 [facility] Nucleated red blood cell per centageOrdered By: Sherice Fernandez on 01-06-2025 Nucleated RBC/100 WBC (Bld) [Ratio] 0 % 0-5 [facility] Oncology Visit Reporton 12-17 Oncology Visit Report Normal [facility] Phosphoruson 01-06-2025 Phosphate [Mass/Vol] 3.9 mg/dL Normal 2.7-4.5 [facility] Comment on above: Performed By: #### L 506.0400, L100.0100, L501.9520, L501.5200, L501.2300, L500.4050 ####[facility] [address] [place], [place], [phone] Platelet countOrdered By: Melva Fernandez on 01-06-2025 Platelets (Bld) [#/Vol] 483 10*3/uL High 150-450 [facility] Potassium (Unsp spec) [Mass/ Vol]Ordered By: Sherice Fernandez on 01-06-2025 Potassium [Moles/Vol] 4.4 mmol/L 3.3-5.1 [facility] RBC Auto (Bld) [#/Vol]Ordere d By: Sherice Fernandez on 01-06-2025 RBC (Bld) [#/Vol] 3.68 10*6/uL Low 4.2-5.4 [facility] Serum creatinine measurement (mass/volume)Ordered By: Sherice Fernandez on 01-06-2025 Creatinine [Mass/Vol] 0.77 mg/dL 0.70-1.20 [facility] Serum globulin measurementOr dered By: Sherice Fernandez on 01-06-2025 Globulin (S) [Mass/Vol] 4.0 g/dL 2.2-4.2 [facility] Serum glucose measurement (m ass/volume)Ordered By: Sherice Fernandez on 01-06-2025 Glucose [Mass/Vol] 126 mg/dL High 70-99 [facility] Serum or plasma alanine encarnacion otransferase (ALT) measurementOrdered By: Sherice Fernandez on 01-06-2025 ALT [Catalytic activity/Vol] 28 U/L <35 [facility] Serum or plasma albumin jayro urement (mass/volume)Ordered By: Sherice Fernandez on 01-06-2025 Albumin [Mass/Vol] 3.2 g/dL Low 3.4-4.8 [facility] Serum or plasma albumin/glob ulin mass ratioOrdered By: Sherice Fernandez on 01-06-2025 Albumin/Globulin [Mass ratio] 0.8 {ratio} Low 0.9-2.4 [facility] Serum or plasma alkaline lukas sphatase measurementOrdered By: Sherice Fernandez on 01-06-2025 ALP [Catalytic activity/Vol] 269 U/L High 35-104 [facility] Serum or plasma calcium jayro urement (mass/volume)Ordered By: Sherice Fernandez on 01-06-2025 Calcium [Mass/Vol] 8.8 mg/dL 7.6-11.0 [facility] Serum or plasma urea nitroge n measurement (mass/volume)Ordered By: Carmellaadrian Fernandez on 01-06-2025 Urea nitrogen [Mass/Vol] 6 mg/dL 4-19 [facility] Serum phosphorus measurement Ordered By: Carmellaadrian Fernandez on 01-06-2025 Phosphorus Level 3.9 mg/dL 2.7-4.5 [facility] Sodium levelOrdered By: Carmella campbell Jim on 01-06-2025 Sodium [Moles/Vol] 142 mmol/L 133-145 [facility] T4 Free Directon 01-06-2025 T4 FREE DIRECT 1.20 ng/dL Normal 0.76-1.46 [facility] Comment on above: Performed By: #### L 506.0400, L100.0100, L501.9520, L501.5200, L501.2300, L500.4050 ####[facility] [address] [place], [place], [id number] T4 freeOrdered By: Sherice burciaga on 01-06-2025 Free T4 [Mass/Vol] 1.20 ng/dL 0.76-1.46 [facility] TSH DL <= 0.005 mIU/L QnOrde red By: Sherice Fernandez on 01-06-2025 Thyroid Stimulating Hormone (TSH) 1.820 uIU/mL 0.300-4.200 [facility] Thyroid Stim Hormone (TSH)on 01-06-2025 TSH 1.820 uIU/mL Normal 0.300-4.200 [facility] Comment on above: Performed By: #### L 506.0400, L100.0100, L501.9520, L501.5200, L501.2300, L500.4050 ####[facility] [address] [place], [place], [phone] Total proteinOrdered By: Nain ajith Fernandez on 01-06-2025 Protein [Mass/Vol] 7.2 g/dL 5.9-8.4 [facility] White blood cell (WBC) count Ordered By: Sherice Fernandez on 01-06-2025 WBC (Bld) [#/Vol] 9.0 10*3/uL 4.4-11.0 [facility] CBC W/Diff, Automatedon - PATH REV N/A Normal [facility] Comment on above: Result Comment: AMENDED REPORT 12/30/24 1406 PATH REV previously reported as: January Performed By: #### L 500.4050, L100.0100 ####[facility] [address] [place], [place], [phone] Blood band neutrophil count as percentage of total leukocytesOrdered By: Sharda Bronson on 12-29-2024 Band form neutrophils/100 WBC (Bld) 11 % High 0-5 [facility] Blood lymphocytes/100 leukoc ytesOrdered By: Sharda Bronson on 12-29-2024 Lymphocytes/100 WBC (Bld) 12 % Low 19-41 [facility] Blood metamyelocytes/100 isa kocytesOrdered By: Sharda Audie on 12-29-2024 Metamyelocytes/100 WBC (Bld) 3 % High 0-1 [facility] Blood monocytes/100 leukocyt esOrdered By: Shardajany TerrellAudie on 12-29-2024 Monocytes/100 WBC (Bld) 16 % High 0-10 [facility] Blood segmented neutrophils/ 100 leukocytesOrdered By: Shardajany TerrellAudie on 12-29-2024 Segmented neutrophils/100 WBC (Bld) 57 % 47-70 [facility] Cells counted Molgen (Bld/Ti ss) [#]Ordered By: Shardajany Bronson on 12-29-2024 Differential Total Cells Counted 100 MANUAL DIFF [facility] Comprehensive Metabolic Prof ilon 12-29-2024 Albumin [Mass/Vol] 3.3 g/dL Low 3.4-4.8 [facility] Comment on above: Performed By: #### L 500.4050, L100.0100 ####[facility] [address] [place], [address] Albumin/Globulin [Mass ratio] 1.0 {ratio} Normal 0.9-2.4 [facility] Comment on above: Performed By: #### L 500.4050, L100.0100 ####[facility] [address] [place], [address] ALK PHOS 418 U/L High 35-104 [facility] Comment on above: Performed By: #### L 500.4050, L100.0100 ####[facility] [address] [place], [address] ALT [Catalytic activity/Vol] 44 U/L High <=34 [facility] Comment on above: Performed By: #### L 500.4050, L100.0100 ####[facility] [address] [place], [address] AST [Catalytic activity/Vol] 98 U/L High <=31 [facility] Comment on above: Performed By: #### L 500.4050, L100.0100 ####[facility] [address] [place], [address] Bilirubin [Mass/Vol] 0.65 mg/dL Normal 0.00-1.30 [facility] Comment on above: Performed By: #### L 500.4050, L100.0100 ####[facility] [address] [place], [address] BUN/CRE 11.3 RATIO Normal 10-20 [facility] Comment on above: Performed By: #### L 500.4050, L100.0100 ####[facility] [address] [place], [address] Calcium [Mass/Vol] 8.9 mg/dL Normal 7.6-11.0 [facility] Comment on above: Performed By: #### L 500.4050, L100.0100 ####[facility] [address] [place], [address] Chloride [Moles/Vol] 101 mmol/L Normal 98-108 [facility] Comment on above: Performed By: #### L 500.4050, L100.0100 ####[facility] [address] [place], [address] CO2 [Moles/Vol] 24.3 mmol/L Normal 21.0-32.0 [facility] Comment on above: Performed By: #### L 500.4050, L100.0100 ####[facility] [address] [place], [address] Creatinine [Mass/Vol] 0.75 mg/dL Normal 0.70-1.20 [facility] Comment on above: Performed By: #### L 500.4050, L100.0100 ####[facility] [address] [place], [address] ECRCL 59.65 ml/min Normal 50-250 [facility] Comment on above: Performed By: #### L 500.4050, L100.0100 ####[facility] [address] [place], [address] GAP 12 Normal 5-15 [facility] Comment on above: Performed By: #### L 500.4050, L100.0100 ####[facility] [address] [place], [address] GFR/1.73 sq M.predicted among non-blacks MDRD (S/P/Bld) [Vol rate/Area] 86 mL/min/{1.73_m2} Normal >60 [facility] Comment on above: Result Comment: mL/m in/1.73m2 CKD-EPI Creatinine Equation (2020) Performed By: #### L 500.4050, L100.0100 ####[facility] [address] [place], [address] Globulin (S) [Mass/Vol] 3.2 g/dL Normal 2.2-4.2 [facility] Comment on above: Performed By: #### L 500.4050, L100.0100 ####[facility] [address] [place], [address] Glucose [Mass/Vol] 168 mg/dL High 70-99 [facility] Comment on above: Performed By: #### L 500.4050, L100.0100 ####[facility] [address] [place], [address] Potassium [Moles/Vol] 4.2 mmol/L Normal 3.3-5.1 [facility] Comment on above: Performed By: #### L 500.4050, L100.0100 ####[facility] [address] [place], [address] Sodium [Moles/Vol] 137 mmol/L Normal 133-145 [facility] Comment on above: Performed By: #### L 500.4050, L100.0100 ####[facility] [address] [place], [address] T PROT 6.5 g/dL Normal 5.9-8.4 [facility] Comment on above: Performed By: #### L 500.4050, L100.0100 ####[facility] [address] [place], [address] Urea nitrogen [Mass/Vol] 8 mg/dL Normal 4-19 [facility] Comment on above: Performed By: #### L 500.4050, L100.0100 ####[facility] [address] [place], [address] Myelocyte %Ordered By: Sharda Bronson on 12-29-2024 Myelocytes/100 WBC (Bld) 1 % High 0-0 [facility] Oncology Visit Reporton 12-16 Oncology Visit Report Normal [facility] Pathologist review Scott (Unsp spec) [Interp]Ordered By: Sharda Bronson on 12-29-2024 Differential Pathologist's Review N/A [facility] Comment on above: Previous reported re sult: Marah anastasia Edited by: HARDIK on 12/30/24:1406 AMENDED REPORT 12/30/241405 PATH REV previously reported as: January anastasia Platelet estimateOrdered By: Sharda Bronson on 12-29-2024 Platelets LM Ql (Bld) MOD DEC ADEQ [facility] Platelets LM Ql (Bld)Ordered By: Sharda Bronson on 12-29-2024 Platelet Estimate MOD DEC ADEQ [facility] Review by pathologistOrdered By: Sharda Bronson on 12-29-2024 Pathologist review Scott (Unsp spec) [Interp] N/A [facility] Comment on above: Previous reported re sult: Marah anastasia Edited by: HARDIK on 12/30/24:1406 AMENDED REPORT 12/30/241405 PATH REV previously reported as: January anastasia Segmented neutrophils/100 WB C (Bld)Ordered By: Sharda Bronson on 12-29-2024 Neutrophils/100 WBC (Bld) 57 % 47-70 [facility] Total cell countOrdered By: Sharda Bronson on 12-29-2024 Cells counted Molgen (Bld/Tiss) [#] 100 MANUAL DIFF [facility] Surgery Visit Reporton 12-[address] [facility] CBC W/Diff, Automatedon PATH REV N/A Normal [facility] Comment on above: Result Comment: AMENDED REPORT 12/21/24 1428 PATH REV previously reported as: Marah oconnor Performed By: #### L 506.0400, L501.2300, L500.4050, L501.9520, L501.5200, L100.0100 ####[facility] [address] [place], [address] CBC W/Diff, Automatedon Absolute Neut Normal 2.0-7.7 [facility] Comment on above: Result Comment: NO S PECIMENS COLLECTED. Performed By: #### L 500.4050, L100.0100 ####[facility] [address] [place], [address] HCT Normal 37-47 [facility] Comment on above: Result Comment: NO S PECIMENS COLLECTED. Performed By: #### L 500.4050, L100.0100 ####[facility] [address] [place], [address] HGB Normal 12.0-15.0 [facility] Comment on above: Result Comment: NO S PECIMENS COLLECTED. Performed By: #### L 500.4050, L100.0100 ####[facility] [address] [place], [address] MCH Normal 27.0-32.0 [facility] Comment on above: Result Comment: NO S PECIMENS COLLECTED. Performed By: #### L 500.4050, L100.0100 ####[facility] [address] [place], [address] MCHC Normal 32-36 [facility] Comment on above: Result Comment: NO S PECIMENS COLLECTED. Performed By: #### L 500.4050, L100.0100 ####[facility] [address] [place], [address] MCV Normal 81-99 [facility] Comment on above: Result Comment: NO S PECIMENS COLLECTED. Performed By: #### L 500.4050, L100.0100 ####[facility] [address] [place], [address] NEUT% Normal 47-70 [facility] Comment on above: Result Comment: NO S PECIMENS COLLECTED. Performed By: #### L 500.4050, L100.0100 ####[facility] [address] [place], [address] PLT Normal 150-450 [facility] Comment on above: Result Comment: NO S PECIMENS COLLECTED. Performed By: #### L 500.4050, L100.0100 ####[facility] [address] [place], [address] RBC Normal 4.2-5.4 [facility] Comment on above: Result Comment: NO S PECIMENS COLLECTED. Performed By: #### L 500.4050, L100.0100 ####[facility] [address] [place], [address] RDW CV Normal 11.6-14.6 [facility] Comment on above: Result Comment: NO S PECIMENS COLLECTED. Performed By: #### L 500.4050, L100.0100 ####[facility] [address] [place], [address] RDW SD Normal 35.1-43.9 [facility] Comment on above: Result Comment: NO S PECIMENS COLLECTED. Performed By: #### L 500.4050, L100.0100 ####[facility] [address] [place], [address] WBC Normal 4.4-11.0 [facility] Comment on above: Result Comment: NO S PECIMENS COLLECTED. Performed By: #### L 500.4050, L100.0100 ####[facility] [address] [place], [address] Comprehensive Metabolic Prof ilon 12-17-2024 ALB Normal 3.4-4.8 [facility] Comment on above: Result Comment: NO S PECIMENS COLLECTED Performed By: #### L 500.4050, L100.0100 ####[facility] [address] [place], [address] ALK PHOS Normal 35-104 [facility] Comment on above: Result Comment: NO S PECIMENS COLLECTED Performed By: #### L 500.4050, L100.0100 ####[facility] [address] [place], [address] ALT Normal <=34 [facility] Comment on above: Result Comment: NO S PECIMENS COLLECTED Performed By: #### L 500.4050, L100.0100 ####[facility] [address] [place], [address] AST Normal <=31 [facility] Comment on above: Result Comment: NO S PECIMENS COLLECTED Performed By: #### L 500.4050, L100.0100 ####[facility] [address] [place], [address] BUN Normal 4-19 [facility] Comment on above: Result Comment: NO S PECIMENS COLLECTED Performed By: #### L 500.4050, L100.0100 ####[facility] [address] [place], [address] BUN/CRE Normal 10-20 [facility] Comment on above: Result Comment: NO S PECIMENS COLLECTED Performed By: #### L 500.4050, L100.0100 ####[facility] [address] [place], [address] Calcium Normal 7.6-11.0 [facility] Comment on above: Result Comment: NO S PECIMENS COLLECTED Performed By: #### L 500.4050, L100.0100 ####[facility] [address] [place], [address] CL Normal 98-108 [facility] Comment on above: Result Comment: NO S PECIMENS COLLECTED Performed By: #### L 500.4050, L100.0100 ####[facility] [address] [place], [address] CO2 Normal 21.0-32.0 [facility] Comment on above: Result Comment: NO S PECIMENS COLLECTED Performed By: #### L 500.4050, L100.0100 ####[facility] [address] [place], [address] CREAT,SERUM Normal 0.70-1.20 [facility] Comment on above: Result Comment: NO S PECIMENS COLLECTED Performed By: #### L 500.4050, L100.0100 ####[facility] [address] [place], [address] eGFR Normal >60 [facility] Comment on above: Result Comment: NO S PECIMENS COLLECTED Performed By: #### L 500.4050, L100.0100 ####[facility] [address] [place], [address] GAP Normal 5-15 [facility] Comment on above: Result Comment: NO S PECIMENS COLLECTED Performed By: #### L 500.4050, L100.0100 ####[facility] [address] [place], [address] GLU Normal 70-99 [facility] Comment on above: Result Comment: NO S PECIMENS COLLECTED Performed By: #### L 500.4050, L100.0100 ####[facility] [address] [place], [address] Potassium Normal 3.3-5.1 [facility] Comment on above: Result Comment: NO S PECIMENS COLLECTED Performed By: #### L 500.4050, L100.0100 ####[facility] [address] [place], [address] T BILI Normal 0.00-1.30 [facility] Comment on above: Result Comment: NO S PECIMENS COLLECTED Performed By: #### L 500.4050, L100.0100 ####[facility] [address] [place], [address] T PROT Normal 5.9-8.4 [facility] Comment on above: Result Comment: NO S PECIMENS COLLECTED Performed By: #### L 500.4050, L100.0100 ####[facility] [address] [place], [address] Comprehensive Metabolic Profil Normal 133-145 [facility] Comment on above: Result Comment: NO S PECIMENS COLLECTED Performed By: #### L 500.4050, L100.0100 ####[facility] [address] [place], [address] Comprehensive Metabolic Prof ilon 12-16-2024 Albumin [Mass/Vol] 3.2 g/dL Low 3.4-4.8 [facility] Comment on above: Performed By: #### L 506.0400, L501.2300, L500.4050, L501.9520, L501.5200, L100.0100 ####[facility] [address] [place], [address] Albumin/Globulin [Mass ratio] 1.0 {ratio} Normal 0.9-2.4 [facility] Comment on above: Performed By: #### L 506.0400, L501.2300, L500.4050, L501.9520, L501.5200, L100.0100 ####[facility] [address] [place], [address] ALK PHOS 590 U/L High 35-104 [facility] Comment on above: Performed By: #### L 506.0400, L501.2300, L500.4050, L501.9520, L501.5200, L100.0100 ####[facility] [address] [place], [address] ALT [Catalytic activity/Vol] 47 U/L High <=34 [facility] Comment on above: Performed By: #### L 506.0400, L501.2300, L500.4050, L501.9520, L501.5200, L100.0100 ####[facility] [address] [place], [address] AST [Catalytic activity/Vol] 210 U/L High <=31 [facility] Comment on above: Performed By: #### L 506.0400, L501.2300, L500.4050, L501.9520, L501.5200, L100.0100 ####[facility] [address] [place], [address] Bilirubin [Mass/Vol] 1.24 mg/dL Normal 0.00-1.30 [facility] Comment on above: Performed By: #### L 506.0400, L501.2300, L500.4050, L501.9520, L501.5200, L100.0100 ####[facility] [address] [place], [address] BUN/CRE 7.8 RATIO Low 10-20 [facility] Comment on above: Performed By: #### L 506.0400, L501.2300, L500.4050, L501.9520, L501.5200, L100.0100 ####[facility] [address] [place], [address] Calcium [Mass/Vol] 8.8 mg/dL Normal 7.6-11.0 [facility] Comment on above: Performed By: #### L 506.0400, L501.2300, L500.4050, L501.9520, L501.5200, L100.0100 ####[facility] [address] [place], [address] Chloride [Moles/Vol] 104 mmol/L Normal 98-108 [facility] Comment on above: Performed By: #### L 506.0400, L501.2300, L500.4050, L501.9520, L501.5200, L100.0100 ####[facility] [address] [place], [address] CO2 [Moles/Vol] 21.3 mmol/L Normal 21.0-32.0 [facility] Comment on above: Performed By: #### L 506.0400, L501.2300, L500.4050, L501.9520, L501.5200, L100.0100 ####[facility] [address] [place], [address] Creatinine [Mass/Vol] 0.79 mg/dL Normal 0.70-1.20 [facility] Comment on above: Performed By: #### L 506.0400, L501.2300, L500.4050, L501.9520, L501.5200, L100.0100 ####[facility] [address] [place], [address] ECRCL 60.80 ml/min Normal 50-250 [facility] Comment on above: Performed By: #### L 506.0400, L501.2300, L500.4050, L501.9520, L501.5200, L100.0100 ####[facility] [address] [place], [address] GAP 14 Normal 5-15 [facility] Comment on above: Performed By: #### L 506.0400, L501.2300, L500.4050, L501.9520, L501.5200, L100.0100 ####[facility] [address] [place], [address] GFR/1.73 sq M.predicted among non-blacks MDRD (S/P/Bld) [Vol rate/Area] 81 mL/min/{1.73_m2} Normal >60 [facility] Comment on above: Result Comment: mL/m in/1.73m2 CKD-EPI Creatinine Equation (2020) Performed By: #### L 506.0400, L501.2300, L500.4050, L501.9520, L501.5200, L100.0100 ####[facility] [address] [place], [address] Globulin (S) [Mass/Vol] 3.2 g/dL Normal 2.2-4.2 [facility] Comment on above: Performed By: #### L 506.0400, L501.2300, L500.4050, L501.9520, L501.5200, L100.0100 ####[facility] [address] [place], [address] Glucose [Mass/Vol] 162 mg/dL High 70-99 [facility] Comment on above: Performed By: #### L 506.0400, L501.2300, L500.4050, L501.9520, L501.5200, L100.0100 ####[facility] [address] [place], [address] Potassium [Moles/Vol] 3.9 mmol/L Normal 3.3-5.1 [facility] Comment on above: Performed By: #### L 506.0400, L501.2300, L500.4050, L501.9520, L501.5200, L100.0100 ####[facility] [address] [place], [address] Sodium [Moles/Vol] 139 mmol/L Normal 133-145 [facility] Comment on above: Performed By: #### L 506.0400, L501.2300, L500.4050, L501.9520, L501.5200, L100.0100 ####[facility] [address] [place], [address] T PROT 6.4 g/dL Normal 5.9-8.4 [facility] Comment on above: Performed By: #### L 506.0400, L501.2300, L500.4050, L501.9520, L501.5200, L100.0100 ####[facility] [address] [place], [address] Urea nitrogen [Mass/Vol] 6 mg/dL Normal 4-19 [facility] Comment on above: Performed By: #### L 506.0400, L501.2300, L500.4050, L501.9520, L501.5200, L100.0100 ####[facility] [address] [place], [address] Magnesiumon 12-16-2024 Magnesium [Mass/Vol] 1.5 mg/dL Normal 1.5-2.2 [facility] Comment on above: Performed By: #### L 506.0400, L501.2300, L500.4050, L501.9520, L501.5200, L100.0100 ####[facility] [address] [place], [address] Oncology Visit Reporton 04-0 Oncology Visit Report Normal [facility] Phosphoruson 12-16-2024 Phosphate [Mass/Vol] 3.1 mg/dL Normal 2.7-4.5 [facility] Comment on above: Performed By: #### L 506.0400, L501.2300, L500.4050, L501.9520, L501.5200, L100.0100 ####[facility] [address] [place], [address] T4 Free Directon 12-16-2024 T4 FREE DIRECT 1.40 ng/dL Normal 0.76-1.46 [facility] Comment on above: Performed By: #### L 506.0400, L501.2300, L500.4050, L501.9520, L501.5200, L100.0100 ####[facility] [address] [place], [place], [id number] Thyroid Stim Hormone (TSH)on 12-16-2024 TSH 5.070 uIU/mL High 0.300-4.200 [facility] Comment on above: Performed By: #### L 506.0400, L501.2300, L500.4050, L501.9520, L501.5200, L100.0100 ####[facility] [address] [place], [place], [id number] Chest 1 View (Portable)on Chest 1 View (Portable) Normal [facility] Discharge Instructionon 11-16 Discharge Instruction Normal [facility] MR/POSTOP.ANEon 12-12-2024 MR/POSTOP.ANE Normal [facility] MR/[id number] 12-12-2024 MR/POSTOPAN2 Normal [facility] Operative Reporton Operative Report Normal [facility] MR/PAT.ANEon 12-11-2024 MR/PAT.ANE Normal [facility] Surgery Visit Reporton 12-[address] [facility] Absolute neutrophil countOrd ered By: Sherice Fernandez on 12-09-2024 Neutrophils (Bld) [#/Vol] 6.7 10*3/uL 2.0-7.7 [facility] Anion gap in Serum or Plasma Ordered By: Sherice Fernandez on 12-09-2024 Anion gap [Moles/Vol] 14 mmol/L 5-15 [facility] BUN/creatinine ratioOrdered By: Sherice Fernandez on 12-09-2024 Urea nitrogen/Creatinine [Mass ratio] 7.9 mg/mg Low 10-20 [facility] Basophil percentageOrdered B y: Sherice Fernandez on 12-09-2024 Basophils/100 WBC (Bld) 0.9 % 0-1 [facility] Bilirubin, totalOrdered By: Sherice Fernandez on 12-09-2024 Bilirubin [Mass/Vol] 1.84 mg/dL High 0.00-1.30 [facility] CBC W/Diff, Automatedon 11-16 PLT EST MOD DEC Normal ADEQ [facility] Comment on above: Performed By: #### L 501.2300, L100.0100, L501.5200 ####[facility] [address] [place], [address] SMEAR COMMENT SCANNED Normal [facility] Comment on above: Performed By: #### L 501.2300, L100.0100, L501.5200 ####[facility] [address] [place], [address] Carbon dioxide, total [Moles /volume] in Central venous bloodOrdered By: Sherice Fernandez on 12-09-2024 CO2 [Moles/Vol] 22.3 mmol/L 21.0-32.0 [facility] Chloride assayOrdered By: Melva Fernandez on 12-09-2024 Chloride [Moles/Vol] 102 mmol/L 98-108 [facility] Comprehensive Metabolic Prof ilon 12-09-2024 Albumin [Mass/Vol] 3.3 g/dL Low 3.4-4.8 [facility] Comment on above: Performed By: #### L 500.4050 ####[facility] [address] [place], [address] Albumin/Globulin [Mass ratio] 1.2 {ratio} Normal 0.9-2.4 [facility] Comment on above: Performed By: #### L 500.4050 ####[facility] [address] [place], [address] ALK PHOS 685 U/L High 35-104 [facility] Comment on above: Performed By: #### L 500.4050 ####[facility] [address] [place], [address] ALT [Catalytic activity/Vol] 88 U/L High <=34 [facility] Comment on above: Performed By: #### L 500.4050 ####[facility] [address] [place], [address] AST [Catalytic activity/Vol] 248 U/L High <=31 [facility] Comment on above: Performed By: #### L 500.4050 ####[facility] [address] [place], [address] Bilirubin [Mass/Vol] 1.84 mg/dL High 0.00-1.30 [facility] Comment on above: Performed By: #### L 500.4050 ####[facility] [address] [place], [address] BUN/CRE 7.9 RATIO Low 10-20 [facility] Comment on above: Performed By: #### L 500.4050 ####[facility] [address] [place], [address] Calcium [Mass/Vol] 8.9 mg/dL Normal 7.6-11.0 [facility] Comment on above: Performed By: #### L 500.4050 ####[facility] [address] [place], [address] Chloride [Moles/Vol] 102 mmol/L Normal 98-108 [facility] Comment on above: Performed By: #### L 500.4050 ####[facility] [address] [place], [address] CO2 [Moles/Vol] 22.3 mmol/L Normal 21.0-32.0 [facility] Comment on above: Performed By: #### L 500.4050 ####[facility] [address] [place], [address] Creatinine [Mass/Vol] 0.84 mg/dL Normal 0.70-1.20 [facility] Comment on above: Performed By: #### L 500.4050 ####[facility] [address] [place], [address] ECRCL 57.91 ml/min Normal 50-250 [facility] Comment on above: Performed By: #### L 500.4050 ####[facility] [address] [place], [address] GAP 14 Normal 5-15 [facility] Comment on above: Performed By: #### L 500.4050 ####[facility] [address] [place], [address] GFR/1.73 sq M.predicted among non-blacks MDRD (S/P/Bld) [Vol rate/Area] 75 mL/min/{1.73_m2} Normal >60 [facility] Comment on above: Result Comment: mL/m in/1.73m2 CKD-EPI Creatinine Equation (2020) Performed By: #### L 500.4050 ####[facility] [address] [place], [address] Globulin (S) [Mass/Vol] 2.9 g/dL Normal 2.2-4.2 [facility] Comment on above: Performed By: #### L 500.4050 ####[facility] [address] [place], [address] Glucose [Mass/Vol] 134 mg/dL High 70-99 [facility] Comment on above: Performed By: #### L 500.4050 ####[facility] [address] [place], [address] Potassium [Moles/Vol] 4.4 mmol/L Normal 3.3-5.1 [facility] Comment on above: Performed By: #### L 500.4050 ####[facility] [address] [place], [address] Sodium [Moles/Vol] 138 mmol/L Normal 133-145 [facility] Comment on above: Performed By: #### L 500.4050 ####[facility] [address] [place], [address] T PROT 6.2 g/dL Normal 5.9-8.4 [facility] Comment on above: Performed By: #### L 500.4050 ####[facility] [address] [place], [address] Urea nitrogen [Mass/Vol] 7 mg/dL Normal 4-19 [facility] Comment on above: Performed By: #### L 500.4050 ####[facility] [address] [place], [address] Eosinophil percentageOrdered By: Sherice Fernandez on 12-09-2024 Eosinophils/100 WBC (Bld) 0.1 % 0-5 [facility] Erythrocyte distribution wid th ratioOrdered By: Sherice Fernandez on 12-09-2024 Erythrocyte distribution width (RBC) [Ratio] 19.4 % High 11.6-14.6 [facility] Erythrocyte distribution wid th standard deviationOrdered By: Sherice Fernandez on 12-09-2024 Erythrocyte distribution width (RBC) [Entitic vol] 59.1 fL High 35.1-43.9 [facility] Estimation of creatinine lubna aranceOrdered By: Sherice Fernandez on 12-09-2024 Estimated Creatinine Clearance Calc 57.91 ml/min 50-250 [facility] GFR/1.73 sq M.predicted mary g non-blacks MDRD (S/P/Bld) [Vol rate/Area]Ordered By: Sherice Fernandez on 12-09-2024 Estimated GFR (MDRD) Non-Af Amer 75 >60 [facility] Comment on above: mL/min/1.73m2 CKD-EP I Creatinine Equation (2020) Hematocrit Auto (Bld) [Volum e fraction]Ordered By: Sherice Fernandez on 12-09-2024 Hematocrit (Bld) [Volume fraction] 34.2 % Low 37-47 [facility] Hemoglobin measurementOrdere d By: Sherice Fernandez on 12-09-2024 Hemoglobin (Bld) [Mass/Vol] 11.4 g/dL Low 12.0-15.0 [facility] Immature granulocytes/100 WB C Auto (Bld)Ordered By: Sherice Fernandez on 12-09-2024 Immature granulocytes/100 WBC (Bld) 3.400 % High 0.0-0.9 [facility] Comment on above: IG% - Immature Granu locytes (promyelocytes, myelocytes and metamyelocytes) > 1% indicates that a LEFT SHIFT is Present. Laboratory - Chemistry and C hemistry - challengeOrdered By: Sherice Fernandez on 12-09-2024 AST [Catalytic activity/Vol] 248 U/L High <32 [facility] Lymphocytes Auto (Unsp spec) [#/Vol]Ordered By: [facility] on 12-09-2024 Lymphocytes (Bld) [#/Vol] 1.01 10*3/uL 0.83-4.51 [facility] Lymphocytes/100 WBC Auto (Un sp spec)Ordered By: Sherice Fernandez on 12-09-2024 Lymphocytes/100 WBC (Bld) 11.0 % Low 19-41 [facility] MCV (mean corpuscular volume ) determinationOrdered By: Sherice Fernandez on 12-09-2024 MCV (RBC) [Entitic vol] 87.9 fL 81-99 [facility] Magnesiumon 12-09-2024 Magnesium [Mass/Vol] 1.4 mg/dL Low 1.5-2.2 [facility] Comment on above: Performed By: #### L 501.2300, L100.0100, L501.5200 ####[facility] [address] [place], [address] Magnesium (Unsp spec) [Mass/ Vol]Ordered By: Sherice Fernandez on 12-09-2024 Magnesium [Mass/Vol] 1.4 mg/dL Low 1.5-2.2 [facility] Manual differential comment Scott (Bld) [Interp]Ordered By: Sherice Fernandez on 12-09-[address] [facility] Mean corpuscular hemoglobin (MCH) determinationOrdered By: [facility] on 12-09-2024 MCH (RBC) [Entitic mass] 29.3 pg 27.0-32.0 [facility] Mean corpuscular hemoglobin concentration (MCHC) determinationOrdered By: Sherice Fernandez on 12-09-2024 MCHC (RBC) [Mass/Vol] 33.3 g/dL 32-36 [facility] Mean platelet volume determi nationOrdered By: Sherice Fernandez on 12-09-2024 Platelet mean volume (Bld) [Entitic vol] 11.8 fL 6.2-12.0 [facility] Monocyte percentageOrdered B y: Sherice Fernandez on 12-09-2024 Monocytes/100 WBC (Bld) 12.3 % High 0-10 [facility] Neutrophil percentageOrdered By: Sherice Fernandez on 12-09-2024 Neutrophils/100 WBC (Bld) 72.3 % High 47-70 [facility] Nucleated red blood cell per centageOrdered By: Sherice Fernandez on 12-09-2024 Nucleated RBC/100 WBC (Bld) [Ratio] 0.2 % 0-5 [facility] Oncology Visit Reporton 11-16 Oncology Visit Report Normal [facility] Phosphoruson 12-09-2024 Phosphate [Mass/Vol] 3.0 mg/dL Normal 2.7-4.5 [facility] Comment on above: Performed By: #### L 501.2300, L100.0100, L501.5200 ####[facility] [address] [place], [address] Platelet countOrdered By: Melva Fernandez on 12-09-2024 Platelets (Bld) [#/Vol] 87 10*3/uL Low 150-450 [facility] Platelets LM Ql (Bld)Ordered By: Sherice Fernandez on 12-09-2024 Platelet Estimate MOD DEC ADEQ [facility] Potassium (Unsp spec) [Mass/ Vol]Ordered By: Sherice Fernandez on 12-09-2024 Potassium [Moles/Vol] 4.4 mmol/L 3.3-5.1 [facility] RBC Auto (Bld) [#/Vol]Ordere d By: Sherice Fernandez on 12-09-2024 RBC (Bld) [#/Vol] 3.89 10*6/uL Low 4.2-5.4 [facility] Serum creatinine measurement (mass/volume)Ordered By: Sherice Fernandez on 12-09-2024 Creatinine [Mass/Vol] 0.84 mg/dL 0.70-1.20 [facility] Serum globulin measurementOr dered By: Sherice Fernandez on 12-09-2024 Globulin (S) [Mass/Vol] 2.9 g/dL 2.2-4.2 [facility] Serum glucose measurement (m ass/volume)Ordered By: Sherice Fernandez on 12-09-2024 Glucose [Mass/Vol] 134 mg/dL High 70-99 [facility] Serum or plasma alanine encarnacion otransferase (ALT) measurementOrdered By: Sherice Fernandez on 12-09-2024 ALT [Catalytic activity/Vol] 88 U/L High <35 [facility] Serum or plasma albumin jayro urement (mass/volume)Ordered By: Sherice Fernandez on 12-09-2024 Albumin [Mass/Vol] 3.3 g/dL Low 3.4-4.8 [facility] Serum or plasma albumin/glob ulin mass ratioOrdered By: Sherice Fernandez on 12-09-2024 Albumin/Globulin [Mass ratio] 1.2 {ratio} 0.9-2.4 [facility] Serum or plasma alkaline lukas sphatase measurementOrdered By: Sherice Fernandez on 12-09-2024 ALP [Catalytic activity/Vol] 685 U/L High 35-104 [facility] Serum or plasma calcium jayro urement (mass/volume)Ordered By: Sherice Fernandez on 12-09-2024 Calcium [Mass/Vol] 8.9 mg/dL 7.6-11.0 [facility] Serum or plasma urea nitroge n measurement (mass/volume)Ordered By: Sherice Fernandez on 12-09-2024 Urea nitrogen [Mass/Vol] 7 mg/dL 4-19 [facility] Serum phosphorus measurement Ordered By: Sherice Fernandez on 12-09-2024 Phosphorus Level 3.0 mg/dL 2.7-4.5 [facility] Sodium levelOrdered By: Carmella Fernandez on 12-09-2024 Sodium [Moles/Vol] 138 mmol/L 133-145 [facility] Total proteinOrdered By: Nain canseco Jim on 12-09-2024 Protein [Mass/Vol] 6.2 g/dL 5.9-8.4 [facility] White blood cell (WBC) count Ordered By: Sherice Jim on 12-09-2024 WBC (Bld) [#/Vol] 9.2 10*3/uL 4.4-11.0 [facility] Brain W/WO Contraston 2024 Brain W/WO Contrast Normal [facility] Magnetic resonance imaging r eportOrdered By: Dillon Mullen on 12-03-2024 Study report [facility] Imaging Services [address] [place] [address] Brain W/WO Contrast MR#: [id number] Acct: [id number] Name: BETSY RODRIGEZ Rep #: [id number] : 1955 F 69 From: Tasha Mullen MD PCP: Dr. Fabricio Lemos MD Status: REG CLI Study:Brain W/WO Contrast Date of Exam: 12/03/24 Exam# [id number] Ordering Dr: Sherice Fernandez MD PROCEDURE: BRAIN [...] 3. Additional description as above. Reading Location: [id number] CC: Dr. Fabricio Lemos MD; Dr. Sherice Fernandez MD ~ [employer] Manager: Signed [facility] Basic Metabolic Profile (BMP )on 12-02-2024 BUN/CRE 20.6 RATIO High 10-20 [facility] Comment on above: Performed By: #### L 501.5200, L500.2500, L100.0100, L501.2300 ####[facility] [address] [place], [address] Calcium [Mass/Vol] 10.0 mg/dL Normal 7.6-11.0 [facility] Comment on above: Performed By: #### L 501.5200, L500.2500, L100.0100, L501.2300 ####[facility] [address] [place], [address] Chloride [Moles/Vol] 102 mmol/L Normal 98-108 [facility] Comment on above: Performed By: #### L 501.5200, L500.2500, L100.0100, L501.2300 ####[facility] [address] [place], [address] CO2 [Moles/Vol] 22.1 mmol/L Normal 21.0-32.0 [facility] Comment on above: Performed By: #### L 501.5200, L500.2500, L100.0100, L501.2300 ####[facility] [address] [place], [address] Creatinine [Mass/Vol] 0.95 mg/dL Normal 0.70-1.20 [facility] Comment on above: Performed By: #### L 501.5200, L500.2500, L100.0100, L501.2300 ####[facility] [address] [place], [address] ECRCL 52.76 ml/min Normal 50-250 [facility] Comment on above: Performed By: #### L 501.5200, L500.2500, L100.0100, L501.2300 ####[facility] [address] [place], [address] GAP 14 Normal 5-15 [facility] Comment on above: Performed By: #### L 501.5200, L500.2500, L100.0100, L501.2300 ####[facility] [address] [place], [address] GFR/1.73 sq M.predicted among non-blacks MDRD (S/P/Bld) [Vol rate/Area] 64 mL/min/{1.73_m2} Normal >60 [facility] Comment on above: Result Comment: mL/m in/1.73m2 CKD-EPI Creatinine Equation (2020) Performed By: #### L 501.5200, L500.2500, L100.0100, L501.2300 ####[facility] [address] [place], [address] Glucose [Mass/Vol] 167 mg/dL High 70-99 [facility] Comment on above: Performed By: #### L 501.5200, L500.2500, L100.0100, L501.2300 ####[facility] [address] [place], [address] Potassium [Moles/Vol] 4.3 mmol/L Normal 3.3-5.1 [facility] Comment on above: Performed By: #### L 501.5200, L500.2500, L100.0100, L501.2300 ####[facility] [address] [place], [address] Sodium [Moles/Vol] 138 mmol/L Normal 133-145 [facility] Comment on above: Performed By: #### L 501.5200, L500.2500, L100.0100, L501.2300 ####[facility] [address] [place], [address] Urea nitrogen [Mass/Vol] 20 mg/dL High 4-19 [facility] Comment on above: Performed By: #### L 501.5200, L500.2500, L100.0100, L501.2300 ####[facility] [address] [place], [address] Bilirubin directOrdered By: Sharda Bronson on 12-02-2024 Bilirubin.direct [Mass/Vol] 3.44 mg/dL High 0.00-0.30 [facility] Blood band neutrophil count as percentage of total leukocytesOrdered By: Sherice Fernandez on 12-02-2024 Band form neutrophils/100 WBC (Bld) 7 % High 0-5 [facility] Blood lymphocytes/100 leukoc ytesOrdered By: Sherice Fernandez on 12-02-2024 Lymphocytes/100 WBC (Bld) 10 % Low 19-41 [facility] Blood metamyelocytes/100 isa kocytesOrdered By: Sherice Fernandez on 12-02-2024 Metamyelocytes/100 WBC (Bld) 1 % 0-1 [facility] Blood monocytes/100 leukocyt esOrdered By: Sherice Fernandez on 12-02-2024 Monocytes/100 WBC (Bld) 3 % 0-10 [facility] Cells counted Molgen (Bld/Ti ss) [#]Ordered By: Sherice Fernandez on 12-02-2024 Differential Total Cells Counted 100 MANUAL DIFF [facility] Erythrocyte morphology asses smentOrdered By: Sherice Fernandez on 12-02-2024 RBC morphology finding Nom (Bld) NORM C+C NORMAL NORM C&C [facility] Liver Profileon 12-02-2024 Albumin [Mass/Vol] 3.5 g/dL Normal 3.4-4.8 [facility] Comment on above: Order Comment: ADD O N TG4 5 J Performed By: #### L 500.3400 ####[facility] [address] [place], [address] ALK PHOS 648 U/L High 35-104 [facility] Comment on above: Order Comment: ADD O N TG4 5 J Performed By: #### L 500.3400 ####[facility] [address] [place], [address] ALT [Catalytic activity/Vol] 157 U/L High <=34 [facility] Comment on above: Order Comment: ADD O N TG4 5 J Performed By: #### L 500.3400 ####[facility] [address] [place], [address] AST [Catalytic activity/Vol] 408 U/L High <=31 [facility] Comment on above: Order Comment: ADD O N TG4 5 J Performed By: #### L 500.3400 ####[facility] [address] [place], [address] Bilirubin [Mass/Vol] 4.41 mg/dL High 0.00-1.30 [facility] Comment on above: Order Comment: ADD O N TG4 5 J Performed By: #### L 500.3400 ####[facility] [address] [place], [address] Bilirubin.direct [Mass/Vol] 3.44 mg/dL High 0.00-0.30 [facility] Comment on above: Order Comment: ADD O N TG4 5 J Performed By: #### L 500.3400 ####[facility] [address] [place], [address] Globulin (S) [Mass/Vol] 3.0 g/dL Normal 2.2-4.2 [facility] Comment on above: Order Comment: ADD O N TG4 5 J Performed By: #### L 500.3400 ####[facility] [address] [place], [address] T PROT 6.5 g/dL Normal 5.9-8.4 [facility] Comment on above: Order Comment: ADD O N TG4 5 J Performed By: #### L 500.3400 ####[facility] [address] [place], [address] Magnesiumon 12-02-2024 Magnesium [Mass/Vol] 1.4 mg/dL Low 1.5-2.2 [facility] Comment on above: Performed By: #### L 501.5200, L500.2500, L100.0100, L501.2300 ####[facility] [address] [place], [address] Oncology Visit Reporton 11-15 Oncology Visit Report Normal [facility] Pathologist review Scott (Unsp spec) [Interp]Ordered By: Sherice Fernandez on 12-02-2024 Differential Pathologist's Review May anastasia [facility] Phosphoruson 12-02-2024 Phosphate [Mass/Vol] 3.0 mg/dL Normal 2.7-4.5 [facility] Comment on above: Performed By: #### L 501.5200, L500.2500, L100.0100, L501.2300 ####[facility] [address] [place], [address] RBC morphology finding Nom ( Bld)Ordered By: Sherice Fernandez on 12-02-2024 Red Blood Cell Morphology NORM C+C NORMAL NORM C&C [facility] Segmented neutrophils/100 WB C (Bld)Ordered By: Sherice Fernandez on 12-02-2024 Neutrophils/100 WBC (Bld) 79 % High 47-70 [facility] CBC W/Diff, Automatedon 03- Absolute Neut Normal 2.0-7.7 [facility] Comment on above: Result Comment: PER JESSE NURSE CBCD NOT NEEDED Performed By: #### L 100.0100, L500.4050 ####[facility] [address] [place], [address] HCT Normal 37-47 [facility] Comment on above: Result Comment: PER JESSE NURSE CBCD NOT NEEDED Performed By: #### L 100.0100, L500.4050 ####[facility] [address] [place], [address] HGB Normal 12.0-15.0 [facility] Comment on above: Result Comment: PER JESSE NURSE CBCD NOT NEEDED Performed By: #### L 100.0100, L500.4050 ####[facility] [address] [place], [address] MCH Normal 27.0-32.0 [facility] Comment on above: Result Comment: PER JESSE NURSE CBCD NOT NEEDED Performed By: #### L 100.0100, L500.4050 ####[facility] [address] [place], [address] MCHC Normal 32-36 [facility] Comment on above: Result Comment: PER JESSE NURSE CBCD NOT NEEDED Performed By: #### L 100.0100, L500.4050 ####[facility] [address] [place], [address] MCV Normal 81-99 [facility] Comment on above: Result Comment: PER JESSE NURSE CBCD NOT NEEDED Performed By: #### L 100.0100, L500.4050 ####[facility] [address] [place], [address] NEUT% Normal 47-70 [facility] Comment on above: Result Comment: PER JESSE NURSE CBCD NOT NEEDED Performed By: #### L 100.0100, L500.4050 ####[facility] [address] [place], [address] PLT Normal 150-450 [facility] Comment on above: Result Comment: PER JESSE NURSE CBCD NOT NEEDED Performed By: #### L 100.0100, L500.4050 ####[facility] [address] [place], [address] RBC Normal 4.2-5.4 [facility] Comment on above: Result Comment: PER JESSE NURSE CBCD NOT NEEDED Performed By: #### L 100.0100, L500.4050 ####[facility] [address] [place], [address] RDW CV Normal 11.6-14.6 [facility] Comment on above: Result Comment: PER JESSE NURSE CBCD NOT NEEDED Performed By: #### L 100.0100, L500.4050 ####[facility] [address] [place], [address] RDW SD Normal 35.1-43.9 [facility] Comment on above: Result Comment: PER JESSE NURSE CBCD NOT NEEDED Performed By: #### L 100.0100, L500.4050 ####[facility] [address] [place], [address] WBC Normal 4.4-11.0 [facility] Comment on above: Result Comment: PER JESSE NURSE CBCD NOT NEEDED Performed By: #### L 100.0100, L500.4050 ####[facility] [address] [place], [address] Comprehensive Metabolic Prof flsimone 11-25-2024 Albumin [Mass/Vol] 3.5 g/dL Normal 3.4-4.8 [facility] Comment on above: Performed By: #### L 100.0100, L500.4050 ####[facility] [address] [place], [address] Albumin/Globulin [Mass ratio] 1.1 {ratio} Normal 0.9-2.4 [facility] Comment on above: Performed By: #### L 100.0100, L500.4050 ####[facility] [address] [place], [address] ALK PHOS 582 U/L High 35-104 [facility] Comment on above: Performed By: #### L 100.0100, L500.4050 ####[facility] [address] [place], [address] ALT [Catalytic activity/Vol] 159 U/L High <=34 [facility] Comment on above: Performed By: #### L 100.0100, L500.4050 ####[facility] [address] [place], [address] AST [Catalytic activity/Vol] 698 U/L High <=31 [facility] Comment on above: Performed By: #### L 100.0100, L500.4050 ####[facility] [address] [place], [address] Bilirubin [Mass/Vol] 3.65 mg/dL High 0.00-1.30 [facility] Comment on above: Performed By: #### L 100.0100, L500.4050 ####[facility] [address] [place], [address] BUN/CRE 15.4 RATIO Normal 10-20 [facility] Comment on above: Performed By: #### L 100.0100, L500.4050 ####[facility] [address] [place], [address] Calcium [Mass/Vol] 11.4 mg/dL High 7.6-11.0 [facility] Comment on above: Performed By: #### L 100.0100, L500.4050 ####[facility] [address] [place], [address] Chloride [Moles/Vol] 101 mmol/L Normal 98-108 [facility] Comment on above: Performed By: #### L 100.0100, L500.4050 ####[facility] [address] [place], [address] CO2 [Moles/Vol] 18.1 mmol/L Low 21.0-32.0 [facility] Comment on above: Performed By: #### L 100.0100, L500.4050 ####[facility] [address] [place], [address] Creatinine [Mass/Vol] 1.09 mg/dL Normal 0.70-1.20 [facility] Comment on above: Performed By: #### L 100.0100, L500.4050 ####[facility] [address] [place], [address] ECRCL 45.19 ml/min Low 50-250 [facility] Comment on above: Performed By: #### L 100.0100, L500.4050 ####[facility] [address] [place], [address] GAP 18 High 5-15 [facility] Comment on above: Performed By: #### L 100.0100, L500.4050 ####[facility] [address] [place], [address] GFR/1.73 sq M.predicted among non-blacks MDRD (S/P/Bld) [Vol rate/Area] 55 mL/min/{1.73_m2} Low >60 [facility] Comment on above: Result Comment: mL/m in/1.73m2 CKD-EPI Creatinine Equation (2020) Performed By: #### L 100.0100, L500.4050 ####[facility] [address] [place], [address] Globulin (S) [Mass/Vol] 3.1 g/dL Normal 2.2-4.2 [facility] Comment on above: Performed By: #### L 100.0100, L500.4050 ####[facility] [address] [place], [address] Glucose [Mass/Vol] 111 mg/dL High 70-99 [facility] Comment on above: Performed By: #### L 100.0100, L500.4050 ####[facility] [address] [place], [address] Potassium [Moles/Vol] 3.8 mmol/L Normal 3.3-5.1 [facility] Comment on above: Performed By: #### L 100.0100, L500.4050 ####[facility] [address] [place], [address] Sodium [Moles/Vol] 138 mmol/L Normal 133-145 [facility] Comment on above: Performed By: #### L 100.0100, L500.4050 ####[facility] [address] [place], [address] T PROT 6.5 g/dL Normal 5.9-8.4 [facility] Comment on above: Performed By: #### L 100.0100, L500.4050 ####[facility] [address] [place], [address] Urea nitrogen [Mass/Vol] 17 mg/dL Normal 4-19 [facility] Comment on above: Performed By: #### L 100.0100, L500.4050 ####[facility] [address] [place], [address] ALB Normal 3.4-4.8 [facility] Comment on above: Result Comment: THER E WAS TX PLAN DUPLICATED NEEDS Performed By: #### L 500.4050 ####[facility] [address] [place], [address] ALK PHOS Normal 35-104 [facility] Comment on above: Result Comment: THER E WAS TX PLAN DUPLICATED NEEDS Performed By: #### L 500.4050 ####[facility] [address] [place], [address] ALT Normal <=34 [facility] Comment on above: Result Comment: THER E WAS TX PLAN DUPLICATED NEEDS Performed By: #### L 500.4050 ####[facility] [address] [place], [address] AST Normal <=31 [facility] Comment on above: Result Comment: THER E WAS TX PLAN DUPLICATED NEEDS Performed By: #### L 500.4050 ####[facility] [address] [place], [address] BUN Normal 4-19 [facility] Comment on above: Result Comment: THER E WAS TX PLAN DUPLICATED NEEDS Performed By: #### L 500.4050 ####[facility] [address] [place], [address] BUN/CRE Normal 10-20 [facility] Comment on above: Result Comment: THER E WAS TX PLAN DUPLICATED NEEDS Performed By: #### L 500.4050 ####[facility] [address] [place], [address] Calcium Normal 7.6-11.0 [facility] Comment on above: Result Comment: THER E WAS TX PLAN DUPLICATED NEEDS Performed By: #### L 500.4050 ####[facility] [address] [place], [address] CL Normal 98-108 [facility] Comment on above: Result Comment: THER E WAS TX PLAN DUPLICATED NEEDS Performed By: #### L 500.4050 ####[facility] [address] [place], [address] CO2 Normal 21.0-32.0 [facility] Comment on above: Result Comment: THER E WAS TX PLAN DUPLICATED NEEDS Performed By: #### L 500.4050 ####[facility] [address] [place], [address] CREAT,SERUM Normal 0.70-1.20 [facility] Comment on above: Result Comment: THER E WAS TX PLAN DUPLICATED NEEDS Performed By: #### L 500.4050 ####[facility] [address] [place], [address] eGFR Normal >60 [facility] Comment on above: Result Comment: THER E WAS TX PLAN DUPLICATED NEEDS Performed By: #### L 500.4050 ####[facility] [address] [place], [address] GAP Normal 5-15 [facility] Comment on above: Result Comment: THER E WAS TX PLAN DUPLICATED NEEDS Performed By: #### L 500.4050 ####[facility] [address] [place], [address] GLU Normal 70-99 [facility] Comment on above: Result Comment: THER E WAS TX PLAN DUPLICATED NEEDS Performed By: #### L 500.4050 ####[facility] [address] [place], [address] Potassium Normal 3.3-5.1 [facility] Comment on above: Result Comment: THER E WAS TX PLAN DUPLICATED NEEDS Performed By: #### L 500.4050 ####[facility] [address] [place], [address] T BILI Normal 0.00-1.30 [facility] Comment on above: Result Comment: THER E WAS TX PLAN DUPLICATED NEEDS Performed By: #### L 500.4050 ####[facility] [address] [place], [address] T PROT Normal 5.9-8.4 [facility] Comment on above: Result Comment: THER E WAS TX PLAN DUPLICATED NEEDS Performed By: #### L 500.4050 ####[facility] [address] [place], [address] Comprehensive Metabolic Profil Normal 133-145 [facility] Comment on above: Result Comment: THER E WAS TX PLAN DUPLICATED NEEDS Performed By: #### L 500.4050 ####[facility] [address] [place], [address] CBC W/Diff, Automatedon 03- 0-2024 Absolute Lymph 0.81 X10 3/uL Low 0.83-4.51 [facility] Comment on above: Performed By: #### L 100.0100, L500.4050 ####[facility] [address] [place], [address] Absolute Neut 6.9 X10 3/uL Normal 2.0-7.7 [facility] Comment on above: Performed By: #### L 100.0100, L500.4050 ####[facility] [address] [place], [address] Basophils/100 WBC (Bld) 0.4 % Normal 0-1 [facility] Comment on above: Performed By: #### L 100.0100, L500.4050 ####[facility] [address] [place], [address] Eosinophils/100 WBC (Bld) 0.1 % Normal 0-5 [facility] Comment on above: Performed By: #### L 100.0100, L500.4050 ####[facility] [address] [place], [address] Erythrocyte distribution width (RBC) [Ratio] 18.2 % High 11.6-14.6 [facility] Comment on above: Performed By: #### L 100.0100, L500.4050 ####[facility] [address] [place], [address] Hematocrit (Bld) [Volume fraction] 41.0 % Normal 37-47 [facility] Comment on above: Performed By: #### L 100.0100, L500.4050 ####[facility] [address] [place], [address] Hemoglobin (Bld) [Mass/Vol] 13.4 g/dL Normal 12.0-15.0 [facility] Comment on above: Performed By: #### L 100.0100, L500.4050 ####[facility] [address] [place], [address] IG% 0.700 Normal 0.0-0.9 [facility] Comment on above: Result Comment: IG% - Immature Granulocytes (promyelocytes, myelocytes andmetamyelocytes) > 1% indicates that a LEFT SHIFT is Present. Performed By: #### L 100.0100, L500.4050 ####[facility] [address] [place], [address] Lymphocytes/100 WBC (Bld) 9.0 % Low 19-41 [facility] Comment on above: Performed By: #### L 100.0100, L500.4050 ####[facility] [address] [place], [address] MCH (RBC) [Entitic mass] 28.6 pg Normal 27.0-32.0 [facility] Comment on above: Performed By: #### L 100.0100, L500.4050 ####[facility] [address] [place], [address] MCHC (RBC) [Mass/Vol] 32.7 g/dL Normal 32-36 [facility] Comment on above: Performed By: #### L 100.0100, L500.4050 ####[facility] [address] [place], [address] MCV (RBC) [Entitic vol] 87.4 fL Normal 81-99 [facility] Comment on above: Performed By: #### L 100.0100, L500.4050 ####[facility] [address] [place], [address] Monocytes/100 WBC (Bld) 13.4 % High 0-10 [facility] Comment on above: Performed By: #### L 100.0100, L500.4050 ####[facility] [address] [place], [address] Neutrophils/100 WBC (Bld) 76.4 % High 47-70 [facility] Comment on above: Performed By: #### L 100.0100, L500.4050 ####[facility] [address] [place], [address] Nucleated RBC (Bld) [#/Vol] 0.2 10*3/uL Normal 0-5 [facility] Comment on above: Performed By: #### L 100.0100, L500.4050 ####[facility] [address] [place], [address] Platelet mean volume (Bld) [Entitic vol] 11.3 fL Normal 6.2-12.0 [facility] Comment on above: Performed By: #### L 100.0100, L500.4050 ####[facility] [address] [place], [address] Platelets (Bld) [#/Vol] 340 10*3/uL Normal 150-450 [facility] Comment on above: Performed By: #### L 100.0100, L500.4050 ####[facility] [address] [place], [address] RBC (Bld) [#/Vol] 4.69 10*6/uL Normal 4.2-5.4 [facility] Comment on above: Performed By: #### L 100.0100, L500.4050 ####[facility] [address] [place], [address] RDW SD 56.8 fl High 35.1-43.9 [facility] Comment on above: Performed By: #### L 100.0100, L500.4050 ####[facility] [address] [place], [address] WBC (Bld) [#/Vol] 9.0 10*3/uL Normal 4.4-11.0 [facility] Comment on above: Performed By: #### L 100.0100, L500.4050 ####[facility] [address] [place], [address] Comprehensive Metabolic Prof ilon 11-24-2024 Albumin [Mass/Vol] 3.6 g/dL Normal 3.4-4.8 [facility] Comment on above: Performed By: #### L 100.0100, L500.4050 ####[facility] [address] [place], [address] Albumin/Globulin [Mass ratio] 1.1 {ratio} Normal 0.9-2.4 [facility] Comment on above: Performed By: #### L 100.0100, L500.4050 ####[facility] [address] [place], [address] ALK PHOS 606 U/L High 35-104 [facility] Comment on above: Performed By: #### L 100.0100, L500.4050 ####[facility] [address] [place], [address] ALT [Catalytic activity/Vol] 164 U/L High <=34 [facility] Comment on above: Performed By: #### L 100.0100, L500.4050 ####[facility] [address] [place], [address] AST [Catalytic activity/Vol] 675 U/L High <=31 [facility] Comment on above: Performed By: #### L 100.0100, L500.4050 ####[facility] [address] [place], [address] Bilirubin [Mass/Vol] 3.14 mg/dL High 0.00-1.30 [facility] Comment on above: Performed By: #### L 100.0100, L500.4050 ####[facility] [address] [place], [address] BUN/CRE 17.6 RATIO Normal 10-20 [facility] Comment on above: Performed By: #### L 100.0100, L500.4050 ####[facility] [address] [place], [address] Calcium [Mass/Vol] 11.8 mg/dL High 7.6-11.0 [facility] Comment on above: Performed By: #### L 100.0100, L500.4050 ####[facility] [address] [place], [address] Chloride [Moles/Vol] 100 mmol/L Normal 98-108 [facility] Comment on above: Performed By: #### L 100.0100, L500.4050 ####[facility] [address] [place], [address] CO2 [Moles/Vol] 21.0 mmol/L Normal 21.0-32.0 [facility] Comment on above: Performed By: #### L 100.0100, L500.4050 ####[facility] [address] [place], [address] Creatinine [Mass/Vol] 1.29 mg/dL High 0.70-1.20 [facility] Comment on above: Performed By: #### L 100.0100, L500.4050 ####[facility] [address] [place], [address] ECRCL 38.19 ml/min Low 50-250 [facility] Comment on above: Performed By: #### L 100.0100, L500.4050 ####[facility] [address] [place], [address] GAP 17 High 5-15 [facility] Comment on above: Performed By: #### L 100.0100, L500.4050 ####[facility] [address] [place], [address] GFR/1.73 sq M.predicted among non-blacks MDRD (S/P/Bld) [Vol rate/Area] 45 mL/min/{1.73_m2} Low >60 [facility] Comment on above: Result Comment: mL/m in/1.73m2 CKD-EPI Creatinine Equation (2020) Performed By: #### L 100.0100, L500.4050 ####[facility] [address] [place], [address] Globulin (S) [Mass/Vol] 3.2 g/dL Normal 2.2-4.2 [facility] Comment on above: Performed By: #### L 100.0100, L500.4050 ####[facility] [address] [place], [address] Glucose [Mass/Vol] 97 mg/dL Normal 70-99 [facility] Comment on above: Performed By: #### L 100.0100, L500.4050 ####[facility] [address] [place], [address] Potassium [Moles/Vol] 4.2 mmol/L Normal 3.3-5.1 [facility] Comment on above: Performed By: #### L 100.0100, L500.4050 ####[facility] [address] [place], [address] Sodium [Moles/Vol] 138 mmol/L Normal 133-145 [facility] Comment on above: Performed By: #### L 100.0100, L500.4050 ####[facility] [address] [place], [address] T PROT 6.8 g/dL Normal 5.9-8.4 [facility] Comment on above: Performed By: #### L 100.0100, L500.4050 ####[facility] [address] [place], [address] Urea nitrogen [Mass/Vol] 23 mg/dL High 4-19 [facility] Comment on above: Performed By: #### L 100.0100, L500.4050 ####[facility] [address] [place], [address] Oncology Visit Reporton 11-15 Oncology Visit Report Normal [facility] Absolute lymphocyte countOrd ered By: Yenifer Patten on 11-23-2024 Lymphocytes Auto (Unsp spec) [#/Vol] 0.69 10*3/uL Low 0.83-4.51 [facility] Absolute neutrophil countOrd ered By: Yenifer Patten on 11-23-2024 Neutrophils (Bld) [#/Vol] 7.5 10*3/uL 2.0-7.7 [facility] Anion gap in Serum or Plasma Ordered By: Yenifer Patten on 11-23-2024 Anion gap [Moles/Vol] 18 mmol/L High 5-15 [facility] Automated lymphocyte count a s percentage of total leukocytesOrdered By: Yenifer Patten on 11-23-2024 Lymphocytes/100 WBC Auto (Unsp spec) 7.2 % Low 19-41 [facility] BUN/creatinine ratioOrdered By: Yenifer Patten on 11-23-2024 Urea nitrogen/Creatinine [Mass ratio] 18.3 mg/mg 10-20 [facility] Basophil percentageOrdered B y: Yenifer Patten on 11-23-2024 Basophils/100 WBC (Bld) 0.4 % 0-1 [facility] Bilirubin, totalOrdered By: Yenifer Patten on 11-23-2024 Bilirubin [Mass/Vol] 3.04 mg/dL High 0.00-1.30 [facility] CBC W/Diff, Automatedon Absolute Lymph 0.69 X10 3/uL Low 0.83-4.51 [facility] Comment on above: Performed By: #### L 100.0100, L500.4050, L501.2450 ####[facility] [address] [place], [address] Absolute Neut 7.5 X10 3/uL Normal 2.0-7.7 [facility] Comment on above: Performed By: #### L 100.0100, L500.4050, L501.2450 ####[facility] [address] [place], [address] Basophils/100 WBC (Bld) 0.4 % Normal 0-1 [facility] Comment on above: Performed By: #### L 100.0100, L500.4050, L501.2450 ####[facility] [address] [place], [address] Eosinophils/100 WBC (Bld) 0.1 % Normal 0-5 [facility] Comment on above: Performed By: #### L 100.0100, L500.4050, L501.2450 ####[facility] [address] [place], [address] Erythrocyte distribution width (RBC) [Ratio] 17.4 % High 11.6-14.6 [facility] Comment on above: Performed By: #### L 100.0100, L500.4050, L501.2450 ####[facility] [address] [place], [address] Hematocrit (Bld) [Volume fraction] 41.5 % Normal 37-47 [facility] Comment on above: Performed By: #### L 100.0100, L500.4050, L501.2450 ####[facility] [address] [place], [address] Hemoglobin (Bld) [Mass/Vol] 14.3 g/dL Normal 12.0-15.0 [facility] Comment on above: Performed By: #### L 100.0100, L500.4050, L501.2450 ####[facility] [address] [place], [address] IG% 0.700 Normal 0.0-0.9 [facility] Comment on above: Result Comment: IG% - Immature Granulocytes (promyelocytes, myelocytes andmetamyelocytes) > 1% indicates that a LEFT SHIFT is Present. Performed By: #### L 100.0100, L500.4050, L501.2450 ####[facility] [address] [place], [address] Lymphocytes/100 WBC (Bld) 7.2 % Low 19-41 [facility] Comment on above: Performed By: #### L 100.0100, L500.4050, L501.2450 ####[facility] [address] [place], [address] MCH (RBC) [Entitic mass] 29.8 pg Normal 27.0-32.0 [facility] Comment on above: Performed By: #### L 100.0100, L500.4050, L501.2450 ####[facility] [address] [place], [address] MCHC (RBC) [Mass/Vol] 34.5 g/dL Normal 32-36 [facility] Comment on above: Performed By: #### L 100.0100, L500.4050, L501.2450 ####[facility] [address] [place], [address] MCV (RBC) [Entitic vol] 86.5 fL Normal 81-99 [facility] Comment on above: Performed By: #### L 100.0100, L500.4050, L501.2450 ####[facility] [address] [place], [address] Monocytes/100 WBC (Bld) 13.0 % High 0-10 [facility] Comment on above: Performed By: #### L 100.0100, L500.4050, L501.2450 ####[facility] [address] [place], [address] Neutrophils/100 WBC (Bld) 78.6 % High 47-70 [facility] Comment on above: Performed By: #### L 100.0100, L500.4050, L501.2450 ####[facility] [address] [place], [address] Nucleated RBC (Bld) [#/Vol] 0.3 10*3/uL Normal 0-5 [facility] Comment on above: Performed By: #### L 100.0100, L500.4050, L501.2450 ####[facility] [address] [place], [address] Platelet mean volume (Bld) [Entitic vol] 11.5 fL Normal 6.2-12.0 [facility] Comment on above: Performed By: #### L 100.0100, L500.4050, L501.2450 ####[facility] [address] [place], [address] Platelets (Bld) [#/Vol] 348 10*3/uL Normal 150-450 [facility] Comment on above: Performed By: #### L 100.0100, L500.4050, L501.2450 ####[facility] [address] [place], [address] RBC (Bld) [#/Vol] 4.80 10*6/uL Normal 4.2-5.4 [facility] Comment on above: Performed By: #### L 100.0100, L500.4050, L501.2450 ####[facility] [address] [place], [address] RDW SD 53.6 fl High 35.1-43.9 [facility] Comment on above: Performed By: #### L 100.0100, L500.4050, L501.2450 ####[facility] [address] [place], [address] WBC (Bld) [#/Vol] 9.6 10*3/uL Normal 4.4-11.0 [facility] Comment on above: Performed By: #### L 100.0100, L500.4050, L501.2450 ####[facility] [address] [place], [address] Carbon dioxide, total [Moles /volume] in Central venous bloodOrdered By: Yenifer Patten on 11-23-2024 CO2 [Moles/Vol] 19.7 mmol/L Low 21.0-32.0 [facility] Chloride assayOrdered By: Kristin Patten on 11-23-2024 Chloride [Moles/Vol] 101 mmol/L 98-108 [facility] Comprehensive Metabolic Prof ilon 11-23-2024 Albumin [Mass/Vol] 3.5 g/dL Normal 3.4-4.8 [facility] Comment on above: Performed By: #### L 100.0100, L500.4050, L501.2450 ####[facility] [address] [place], [address] Albumin/Globulin [Mass ratio] 1.1 {ratio} Normal 0.9-2.4 [facility] Comment on above: Performed By: #### L 100.0100, L500.4050, L501.2450 ####[facility] [address] [place], [address] ALK PHOS 603 U/L High 35-104 [facility] Comment on above: Performed By: #### L 100.0100, L500.4050, L501.2450 ####[facility] [address] [place], [address] ALT [Catalytic activity/Vol] 159 U/L High <=34 [facility] Comment on above: Performed By: #### L 100.0100, L500.4050, L501.2450 ####[facility] [address] [place], [address] AST [Catalytic activity/Vol] 683 U/L High <=31 [facility] Comment on above: Performed By: #### L 100.0100, L500.4050, L501.2450 ####[facility] [address] [place], [address] Bilirubin [Mass/Vol] 3.04 mg/dL High 0.00-1.30 [facility] Comment on above: Performed By: #### L 100.0100, L500.4050, L501.2450 ####[facility] [address] [place], [address] BUN/CRE 18.3 RATIO Normal 10-20 [facility] Comment on above: Performed By: #### L 100.0100, L500.4050, L501.2450 ####[facility] [address] [place], [address] Calcium [Mass/Vol] 11.8 mg/dL High 7.6-11.0 [facility] Comment on above: Performed By: #### L 100.0100, L500.4050, L501.2450 ####[facility] [address] [place], [address] Chloride [Moles/Vol] 101 mmol/L Normal 98-108 [facility] Comment on above: Performed By: #### L 100.0100, L500.4050, L501.2450 ####[facility] [address] [place], [address] CO2 [Moles/Vol] 19.7 mmol/L Low 21.0-32.0 [facility] Comment on above: Performed By: #### L 100.0100, L500.4050, L501.2450 ####[facility] [address] [place], [address] Creatinine [Mass/Vol] 1.22 mg/dL High 0.70-1.20 [facility] Comment on above: Performed By: #### L 100.0100, L500.4050, L501.2450 ####[facility] [address] [place], [address] ECRCL 40.43 ml/min Low 50-250 [facility] Comment on above: Performed By: #### L 100.0100, L500.4050, L501.2450 ####[facility] [address] [place], [address] GAP 18 High 5-15 [facility] Comment on above: Performed By: #### L 100.0100, L500.4050, L501.2450 ####[facility] [address] [place], [address] GFR/1.73 sq M.predicted among non-blacks MDRD (S/P/Bld) [Vol rate/Area] 48 mL/min/{1.73_m2} Low >60 [facility] Comment on above: Result Comment: mL/m in/1.73m2 CKD-EPI Creatinine Equation (2020) Performed By: #### L 100.0100, L500.4050, L501.2450 ####[facility] [address] [place], [address] Globulin (S) [Mass/Vol] 3.2 g/dL Normal 2.2-4.2 [facility] Comment on above: Performed By: #### L 100.0100, L500.4050, L501.2450 ####[facility] [address] [place], [address] Glucose [Mass/Vol] 118 mg/dL High 70-99 [facility] Comment on above: Performed By: #### L 100.0100, L500.4050, L501.2450 ####[facility] [address] [place], [address] Potassium [Moles/Vol] 4.3 mmol/L Normal 3.3-5.1 [facility] Comment on above: Performed By: #### L 100.0100, L500.4050, L501.2450 ####[facility] [address] [place], [address] Sodium [Moles/Vol] 139 mmol/L Normal 133-145 [facility] Comment on above: Performed By: #### L 100.0100, L500.4050, L501.2450 ####[facility] [address] [place], [address] T PROT 6.8 g/dL Normal 5.9-8.4 [facility] Comment on above: Performed By: #### L 100.0100, L500.4050, L501.2450 ####[facility] [address] [place], [address] Urea nitrogen [Mass/Vol] 22 mg/dL High 4-19 [facility] Comment on above: Performed By: #### L 100.0100, L500.4050, L501.2450 ####[facility] [address] [place], [address] Emergency Department Summary on 11-23-2024 Emergency Department Summary Normal [facility] Eosinophil percentageOrdered By: Yenifer Patten on 11-23-2024 Eosinophils/100 WBC (Bld) 0.1 % 0-5 [facility] Erythrocyte distribution wid th ratioOrdered By: Yenifer Patten on 11-23-2024 Erythrocyte distribution width (RBC) [Ratio] 17.4 % High 11.6-14.6 [facility] Erythrocyte distribution wid th standard deviationOrdered By: Yenifer Patten on 11-23-2024 Erythrocyte distribution width (RBC) [Entitic vol] 53.6 fL High 35.1-43.9 [facility] Erythrocyte distribution width (RBC) [Ratio] 53.6 fl High 35.1-43.9 [facility] Estimation of creatinine lubna aranceOrdered By: Yenifer Patten on 11-23-2024 Estimated Creatinine Clearance Calc 40.43 ml/min Low 50-250 [facility] GFR/1.73 sq M.predicted mary g non-blacks MDRD (S/P/Bld) [Vol rate/Area]Ordered By: Yenifer Patten on 11-23-2024 Estimated GFR (MDRD) Non-Af Amer 48 Low >60 [facility] Comment on above: mL/min/1.73m2 CKD-EP I Creatinine Equation (2020) Glomerular filtration rate ( GFR) estimation/1.73 sq m using serum, plasma, or whole bOrdered By: Yenifer Patten on 11-23-2024 GFR/1.73 sq M.predicted among non-blacks MDRD (S/P/Bld) [Vol rate/Area] 48 mL/min/{1.73_m2} Low >60 [facility] Comment on above: mL/min/1.73m2 CKD-EP I Creatinine Equation (2020) Hematocrit Auto (Bld) [Volum e fraction]Ordered By: Yenifer Patten on 11-23-2024 Hematocrit (Bld) [Volume fraction] 41.5 % 37-47 [facility] Hemoglobin measurementOrdere d By: Yenifer Patten on 11-23-2024 Hemoglobin (Bld) [Mass/Vol] 14.3 g/dL 12.0-15.0 [facility] Immature granulocytes/100 WB C Auto (Bld)Ordered By: Yenifer Patten on 11-23-2024 Immature granulocytes/100 WBC (Bld) 0.700 % 0.0-0.9 [facility] Comment on above: IG% - Immature Granu locytes (promyelocytes, myelocytes and metamyelocytes) > 1% indicates that a LEFT SHIFT is Present. Laboratory - Chemistry and C hemistry - challengeOrdered By: Yenifer Patten on 11-23-2024 AST [Catalytic activity/Vol] 683 U/L High <32 [facility] Lipaseon 11-23-2024 Lipase [Catalytic activity/Vol] 267 U/L High 13-75 [facility] Comment on above: Result Comment: Elise brunson note:LIPASE revised reference range effective 22.New Lipase methodology. Expected to produce lower valuesthan the previous assay method.NEW Reference Range: 13 - 75 U/L Performed By: #### L 100.0100, L500.4050, L501.2450 ####[facility] [address] [place], [address] Lipase measurementOrdered By : Yenifer Patten on 11-23-2024 Lipase [Catalytic activity/Vol] 267 U/L High 13-75 [facility] Comment on above: Please note:LIPASE r evised reference range effective 22. New Lipase methodology. Expected to produce lower values than the previous assay method. NEW Reference Range: 13 - 75 U/L Lymphocytes Auto (Unsp spec) [#/Vol]Ordered By: Yenifer Patten on 11-23-2024 Lymphocytes (Bld) [#/Vol] 0.69 10*3/uL Low 0.83-4.51 [facility] Lymphocytes/100 WBC Auto (Un sp spec)Ordered By: Yenifer Patten on 11-23-2024 Lymphocytes/100 WBC (Bld) 7.2 % Low 19-41 [facility] MCV (mean corpuscular volume ) determinationOrdered By: Yenifer Patten on 11-23-2024 MCV (RBC) [Entitic vol] 86.5 fL 81-99 [facility] Mean corpuscular hemoglobin (MCH) determinationOrdered By: Yenifer Patten on 11-23-2024 MCH (RBC) [Entitic mass] 29.8 pg 27.0-32.0 [facility] Mean corpuscular hemoglobin concentration (MCHC) determinationOrdered By: Yenifer Patten on 11-23-2024 MCHC (RBC) [Mass/Vol] 34.5 g/dL 32-36 [facility] Mean platelet volume determi nationOrdered By: Yenifer Patten on 11-23-2024 Platelet mean volume (Bld) [Entitic vol] 11.5 fL 6.2-12.0 [facility] Monocyte percentageOrdered B y: Yenifer Patten on 11-23-2024 Monocytes/100 WBC (Bld) 13.0 % High 0-10 [facility] Neutrophil percentageOrdered By: Yenifer Patten on 11-23-2024 Neutrophils/100 WBC (Bld) 78.6 % High 47-70 [facility] No Panel InformationOrdered By: Yenifer Patten on 11-23-2024 683 U/L High <32 [facility] Nucleated red blood cell per centageOrdered By: Yenifer Patten on 11-23-2024 Nucleated RBC/100 WBC (Bld) [Ratio] 0.3 % 0-5 [facility] Platelet countOrdered By: Kristin Patten on 11-23-2024 Platelets (Bld) [#/Vol] 348 10*3/uL 150-450 [facility] Potassium (Unsp spec) [Mass/ Vol]Ordered By: Yenifer Patten on 11-23-2024 Potassium [Moles/Vol] 4.3 mmol/L 3.3-5.1 [facility] Potassium measurement (mass/ volume)Ordered By: Yenifer Patten on 11-23-2024 Potassium (Unsp spec) [Mass/Vol] 4.3 mmol/L 3.3-5.1 [facility] RBC Auto (Bld) [#/Vol]Ordere d By: Yenifer Patten on 11-23-2024 RBC (Bld) [#/Vol] 4.80 10*6/uL 4.2-5.4 [facility] Serum creatinine measurement (mass/volume)Ordered By: Yenifer Patten on 11-23-2024 Creatinine [Mass/Vol] 1.22 mg/dL High 0.70-1.20 [facility] Serum globulin measurementOr dered By: Yenifer Patten on 11-23-2024 Globulin (S) [Mass/Vol] 3.2 g/dL 2.2-4.2 [facility] Serum glucose measurement (m ass/volume)Ordered By: Yenifer Patten on 11-23-2024 Glucose [Mass/Vol] 118 mg/dL High 70-99 [facility] Serum or plasma alanine encarnacion otransferase (ALT) measurementOrdered By: Yenifer Patten on 11-23-2024 ALT [Catalytic activity/Vol] 159 U/L High <35 [facility] Serum or plasma albumin jayro urement (mass/volume)Ordered By: Yenifer Patten on 11-23-2024 Albumin [Mass/Vol] 3.5 g/dL 3.4-4.8 [facility] Serum or plasma albumin/glob ulin mass ratioOrdered By: Yenifer Patten on 11-23-2024 Albumin/Globulin [Mass ratio] 1.1 {ratio} 0.9-2.4 [facility] Serum or plasma alkaline lukas sphatase measurementOrdered By: Yenifer Patten on 11-23-2024 ALP [Catalytic activity/Vol] 603 U/L High 35-104 [facility] Serum or plasma calcium jayro urement (mass/volume)Ordered By: Yenifer Patten on 11-23-2024 Calcium [Mass/Vol] 11.8 mg/dL High 7.6-11.0 [facility] Serum or plasma urea nitroge n measurement (mass/volume)Ordered By: Yenifer Patten on 11-23-2024 Urea nitrogen [Mass/Vol] 22 mg/dL High 4-19 [facility] Sodium levelOrdered By: Yenifer Patten on 11-23-2024 Sodium [Moles/Vol] 139 mmol/L 133-145 [facility] Total proteinOrdered By: Laura Patten on 11-23-2024 Protein [Mass/Vol] 6.8 g/dL 5.9-8.4 [facility] White blood cell (WBC) count Ordered By: Yenifer Patten on 11-23-2024 WBC (Bld) [#/Vol] 9.6 10*3/uL 4.4-11.0 [facility] BUN/creatinine ratioOrdered By: Mae H[place] on 11-14-2024 Urea nitrogen/Creatinine [Mass ratio] 10.6 mg/mg 10-20 [facility] Basic Metabolic Profile (BMP )on 11-14-2024 Anion gap [Moles/Vol] 13 mmol/L Normal 5-15 [facility] Comment on above: Performed By: #### L 100.0500, L500.2500 ####[facility] [address] [place], [address] BUN/CRE 10.6 RATIO Normal 10-20 [facility] Comment on above: Performed By: #### L 100.0500, L500.2500 ####[facility] [address] [place], [address] Calcium [Mass/Vol] 10.1 mg/dL Normal 7.6-11.0 [facility] Comment on above: Performed By: #### L 100.0500, L500.2500 ####[facility] [address] [place], [address] Chloride [Moles/Vol] 105 mmol/L Normal 96-108 [facility] Comment on above: Performed By: #### L 100.0500, L500.2500 ####[facility] [address] [place], [address] CO2 [Moles/Vol] 20.3 mmol/L Low 22.0-29.0 [facility] Comment on above: Performed By: #### L 100.0500, L500.2500 ####[facility] [address] [place], [address] Creatinine [Mass/Vol] 0.91 mg/dL Normal 0.70-1.20 [facility] Comment on above: Performed By: #### L 100.0500, L500.2500 ####[facility] [address] [place], [address] ECRCL 54.89 ml/min Normal [facility] Comment on above: Performed By: #### L 100.0500, L500.2500 ####[facility] [address] [place], [address] GFR/1.73 sq M.predicted among non-blacks MDRD (S/P/Bld) [Vol rate/Area] 68 mL/min/{1.73_m2} Normal >60 [facility] Comment on above: Result Comment: mL/m in/1.73m2 CKD-EPI Creatinine Equation (2020) Performed By: #### L 100.0500, L500.2500 ####[facility] [address] [place], [address] Glucose [Mass/Vol] 95 mg/dL Normal 70-99 [facility] Comment on above: Performed By: #### L 100.0500, L500.2500 ####[facility] [address] [place], [address] Potassium [Moles/Vol] 4.2 mmol/L Normal 3.3-5.1 [facility] Comment on above: Performed By: #### L 100.0500, L500.2500 ####[facility] [address] [place], [address] Sodium [Moles/Vol] 139 mmol/L Normal 133-145 [facility] Comment on above: Performed By: #### L 100.0500, L500.2500 ####[facility] [address] [place], [address] Urea nitrogen [Mass/Vol] 10 mg/dL Normal 4-19 [facility] Comment on above: Performed By: #### L 100.0500, L500.2500 ####[facility] [address] [place], [address] Biopsy/Inj or Needle Placeme nton 11-14-2024 Biopsy/Inj or Needle Placement Normal [facility] CBC-Complete Blood Cnt No Di ffon 11-14-2024 Erythrocyte distribution width (RBC) [Ratio] 15.8 % High 11.6-14.6 [facility] Comment on above: Performed By: #### L 100.0500, L500.2500 ####[facility] [address] [place], [address] Hematocrit (Bld) [Volume fraction] 37.1 % Normal 37-47 [facility] Comment on above: Performed By: #### L 100.0500, L500.2500 ####[facility] [address] [place], [address] Hemoglobin (Bld) [Mass/Vol] 12.0 g/dL Normal 12.0-15.0 [facility] Comment on above: Performed By: #### L 100.0500, L500.2500 ####[facility] [address] [place], [address] MCH (RBC) [Entitic mass] 28.8 pg Normal 27.0-32.0 [facility] Comment on above: Performed By: #### L 100.0500, L500.2500 ####[facility] [address] [place], [address] MCHC (RBC) [Mass/Vol] 32.3 g/dL Normal 32-36 [facility] Comment on above: Performed By: #### L 100.0500, L500.2500 ####[facility] [address] [place], [address] MCV (RBC) [Entitic vol] 89.0 fL Normal 81-99 [facility] Comment on above: Performed By: #### L 100.0500, L500.2500 ####[facility] [address] [place], [address] Platelet mean volume (Bld) [Entitic vol] 12.0 fL Normal 6.2-12.0 [facility] Comment on above: Performed By: #### L 100.0500, L500.2500 ####[facility] [address] [place], [address] Platelets (Bld) [#/Vol] 275 10*3/uL Normal 150-450 [facility] Comment on above: Performed By: #### L 100.0500, L500.2500 ####[facility] [address] [place], [address] RBC (Bld) [#/Vol] 4.17 10*6/uL Low 4.2-5.4 [facility] Comment on above: Performed By: #### L 100.0500, L500.2500 ####[facility] [address] [place], [address] RDW SD 50.9 fl High 35.1-43.9 [facility] Comment on above: Performed By: #### L 100.0500, L500.2500 ####[facility] [address] [place], [address] WBC (Bld) [#/Vol] 7.2 10*3/uL Normal 4.4-11.0 [facility] Comment on above: Performed By: #### L 100.0500, L500.2500 ####[facility] [address] [place], [address] Carbon dioxide measurementOr dered By: Mae Horton on 11-14-2024 CO2 [Moles/Vol] 20.3 mmol/L Low 22.0-29.0 [facility] Chloride measurementOrdered By: Mae Horton on 02-28-2025 Chloride [Moles/Vol] 105 mmol/L 96-108 [facility] Erythrocyte distribution wid th ratioOrdered By: Mae Horton on 11-14-2024 Erythrocyte distribution width (RBC) [Ratio] 15.8 % High 11.6-14.6 [facility] Erythrocyte distribution wid th standard deviationOrdered By: Mae Horton on 11-14-2024 Erythrocyte distribution width (RBC) [Entitic vol] 50.9 fL High 35.1-43.9 [facility] Erythrocyte distribution width (RBC) [Ratio] 50.9 fl High 35.1-43.9 [facility] Estimation of creatinine lubna aranceOrdered By: Mae Horton on 11-14-2024 Estimated Creatinine Clearance Calc 54.89 ml/min [facility] GFR/1.73 sq M.predicted mary g non-blacks MDRD (S/P/Bld) [Vol rate/Area]Ordered By: Mae Horton on 11-14-2024 Estimated GFR (MDRD) Non-Af Amer 68 >60 [facility] Comment on above: mL/min/1.73m2 CKD-EP I Creatinine Equation (2020) Glomerular filtration rate ( GFR) estimation/1.73 sq m using serum, plasma, or whole bOrdered By: Mae Horton on 11-14-2024 GFR/1.73 sq M.predicted among non-blacks MDRD (S/P/Bld) [Vol rate/Area] 68 mL/min/{1.73_m2} >60 [facility] Comment on above: mL/min/1.73m2 CKD-EP I Creatinine Equation (2020) Hematocrit Auto (Bld) [Volum e fraction]Ordered By: Mae Horton on 11-14-2024 Hematocrit (Bld) [Volume fraction] 37.1 % 37-47 [facility] Hemoglobin measurementOrdere d By: Mae Horton on 11-14-2024 Hemoglobin (Bld) [Mass/Vol] 12.0 g/dL 12.0-15.0 [facility] Immunohistochemical Stainson 11-14-2024 Immunohistochemical Stains Normal [facility] Comment on above: Performed By: #### P [facility] ####[facility] [address] [place], [address] MCV (mean corpuscular volume ) determinationOrdered By: Mae Horton on 11-14-2024 MCV (RBC) [Entitic vol] 89.0 fL 81-99 [facility] Mean corpuscular hemoglobin (MCH) determinationOrdered By: Mae Horton on 11-14-2024 MCH (RBC) [Entitic mass] 28.8 pg 27.0-32.0 [facility] Mean corpuscular hemoglobin concentration (MCHC) determinationOrdered By: Mae Horton on 11-14-2024 MCHC (RBC) [Mass/Vol] 32.3 g/dL 32-36 [facility] Mean platelet volume determi nationOrdered By: Mae Horton on 11-14-2024 Platelet mean volume (Bld) [Entitic vol] 12.0 fL 6.2-12.0 [facility] Platelet countOrdered By: Kassie Horton on 11-14-2024 Platelets (Bld) [#/Vol] 275 10*3/uL 150-450 [facility] RBC Auto (Bld) [#/Vol]Ordere d By: Mae Horton on 11-14-2024 RBC (Bld) [#/Vol] 4.17 10*6/uL Low 4.2-5.4 [facility] Serum creatinine measurement (mass/volume)Ordered By: Mae Horton on 11-14-2024 Creatinine [Mass/Vol] 0.91 mg/dL 0.70-1.20 [facility] Serum glucose measurement (m ass/volume)Ordered By: Mae Horton on 11-14-2024 Glucose [Mass/Vol] 95 mg/dL 70-99 [facility] Serum or plasma anion gap de termination (moles/volume)Ordered By: Mae Horton on 11-14-2024 Anion gap [Moles/Vol] 13 mmol/L 5-15 [facility] Serum or plasma calcium jayro urement (mass/volume)Ordered By: Mae Horton on 11-14-2024 Calcium [Mass/Vol] 10.1 mg/dL 7.6-11.0 [facility] Serum or plasma potassium me asurementOrdered By: Mae Horton on 11-14-2024 Potassium [Moles/Vol] 4.2 mmol/L 3.3-5.1 [facility] Serum or plasma sodium measu rement (moles/volume)Ordered By: Mae Horton on 11-14-2024 Sodium [Moles/Vol] 139 mmol/L 133-145 [facility] [facility] Serum or plasma urea nitroge n measurement (mass/volume)Ordered By: Mae Horton on 11-14-2024 Urea nitrogen [Mass/Vol] 10 mg/dL 4-19 [facility] White blood cell (WBC) count Ordered By: Mae Horton on 11-14-2024 WBC (Bld) [#/Vol] 7.2 10*3/uL 4.4-11.0 [facility] 12 Lead EKGon 11-13-2024 12 Lead EKG Normal [facility] Absolute lymphocyte countOrd ered By: Mae Horton on 11-13-2024 Lymphocytes Auto (Unsp spec) [#/Vol] 1.02 10*3/uL 0.83-4.51 [facility] Absolute neutrophil countOrd ered By: Mae Horton on 11-13-2024 Neutrophils (Bld) [#/Vol] 4.2 10*3/uL 2.0-7.7 [facility] Automated lymphocyte count a s percentage of total leukocytesOrdered By: Mae Horton on 11-13-2024 Lymphocytes/100 WBC Auto (Unsp spec) 16.3 % Low 19-41 [facility] Basophil percentageOrdered B y: Mae Horton on 11-13-2024 Basophils/100 WBC (Bld) 0.8 % 0-1 [facility] Bilirubin, totalOrdered By: Mae Horton on 11-13-2024 Bilirubin [Mass/Vol] 0.84 mg/dL 0.00-1.30 [facility] CBC W/Diff, Automatedon 10-19 Absolute Lymph 1.02 X10 3/uL Normal 0.83-4.51 [facility] Comment on above: Performed By: #### L 501.2300, L100.0100, L500.4050, L501.9520, L501.5200 ####[facility] [address] [place], [address] Absolute Neut 4.2 X10 3/uL Normal 2.0-7.7 [facility] Comment on above: Performed By: #### L 501.2300, L100.0100, L500.4050, L501.9520, L501.5200 ####[facility] [address] [place], [address] Basophils/100 WBC (Bld) 0.8 % Normal 0-1 [facility] Comment on above: Performed By: #### L 501.2300, L100.0100, L500.4050, L501.9520, L501.5200 ####[facility] [address] [place], [address] Eosinophils/100 WBC (Bld) 0.6 % Normal 0-5 [facility] Comment on above: Performed By: #### L 501.2300, L100.0100, L500.4050, L501.9520, L501.5200 ####[facility] [address] [place], [address] Erythrocyte distribution width (RBC) [Ratio] 15.3 % High 11.6-14.6 [facility] Comment on above: Performed By: #### L 501.2300, L100.0100, L500.4050, L501.9520, L501.5200 ####[facility] [address] [place], [address] Hematocrit (Bld) [Volume fraction] 35.9 % Low 37-47 [facility] Comment on above: Performed By: #### L 501.2300, L100.0100, L500.4050, L501.9520, L501.5200 ####[facility] [address] [place], [address] Hemoglobin (Bld) [Mass/Vol] 11.7 g/dL Low 12.0-15.0 [facility] Comment on above: Performed By: #### L 501.2300, L100.0100, L500.4050, L501.9520, L501.5200 ####[facility] [address] [place], [address] IG% 0.300 Normal 0.0-0.9 [facility] Comment on above: Result Comment: IG% - Immature Granulocytes (promyelocytes, myelocytes andmetamyelocytes) > 1% indicates that a LEFT SHIFT is Present. Performed By: #### L 501.2300, L100.0100, L500.4050, L501.9520, L501.5200 ####[facility] [address] [place], [address] Lymphocytes/100 WBC (Bld) 16.3 % Low 19-41 [facility] Comment on above: Performed By: #### L 501.2300, L100.0100, L500.4050, L501.9520, L501.5200 ####[facility] [address] [place], [address] MCH (RBC) [Entitic mass] 28.9 pg Normal 27.0-32.0 [facility] Comment on above: Performed By: #### L 501.2300, L100.0100, L500.4050, L501.9520, L501.5200 ####[facility] [address] [place], [address] MCHC (RBC) [Mass/Vol] 32.6 g/dL Normal 32-36 [facility] Comment on above: Performed By: #### L 501.2300, L100.0100, L500.4050, L501.9520, L501.5200 ####[facility] [address] [place], [address] MCV (RBC) [Entitic vol] 88.6 fL Normal 81-99 [facility] Comment on above: Performed By: #### L 501.2300, L100.0100, L500.4050, L501.9520, L501.5200 ####[facility] [address] [place], [address] Monocytes/100 WBC (Bld) 14.7 % High 0-10 [facility] Comment on above: Performed By: #### L 501.2300, L100.0100, L500.4050, L501.9520, L501.5200 ####[facility] [address] [place], [address] Neutrophils/100 WBC (Bld) 67.3 % Normal 47-70 [facility] Comment on above: Performed By: #### L 501.2300, L100.0100, L500.4050, L501.9520, L501.5200 ####[facility] [address] [place], [address] Nucleated RBC (Bld) [#/Vol] 0 10*3/uL Normal 0-5 [facility] Comment on above: Performed By: #### L 501.2300, L100.0100, L500.4050, L501.9520, L501.5200 ####[facility] [address] [place], [address] Platelet mean volume (Bld) [Entitic vol] 11.2 fL Normal 6.2-12.0 [facility] Comment on above: Performed By: #### L 501.2300, L100.0100, L500.4050, L501.9520, L501.5200 ####[facility] [address] [place], [address] Platelets (Bld) [#/Vol] 249 10*3/uL Normal 150-450 [facility] Comment on above: Performed By: #### L 501.2300, L100.0100, L500.4050, L501.9520, L501.5200 ####[facility] [address] [place], [address] RBC (Bld) [#/Vol] 4.05 10*6/uL Low 4.2-5.4 [facility] Comment on above: Performed By: #### L 501.2300, L100.0100, L500.4050, L501.9520, L501.5200 ####[facility] [address] [place], [address] RDW SD 49.1 fl High 35.1-43.9 [facility] Comment on above: Performed By: #### L 501.2300, L100.0100, L500.4050, L501.9520, L501.5200 ####[facility] [address] [place], [address] WBC (Bld) [#/Vol] 6.3 10*3/uL Normal 4.4-11.0 [facility] Comment on above: Performed By: #### L 501.2300, L100.0100, L500.4050, L501.9520, L501.5200 ####[facility] [address] [place], [address] Comprehensive Metabolic [facility] 11-13-2024 Albumin [Mass/Vol] 3.5 g/dL Normal 3.4-4.8 [facility] Comment on above: Performed By: #### L 501.2300, L100.0100, L500.4050, L501.9520, L501.5200 ####[facility] [address] [place], [address] Albumin/Globulin [Mass ratio] 1.7 {ratio} Normal 0.9-2.4 [facility] Comment on above: Performed By: #### L 501.2300, L100.0100, L500.4050, L501.9520, L501.5200 ####[facility] [address] [place], [address] ALK PHOS 422 U/L High 35-104 [facility] Comment on above: Performed By: #### L 501.2300, L100.0100, L500.4050, L501.9520, L501.5200 ####[facility] [address] [place], [address] ALT [Catalytic activity/Vol] 133 U/L High <=34 [facility] Comment on above: Performed By: #### L 501.2300, L100.0100, L500.4050, L501.9520, L501.5200 ####[facility] [address] [place], [address] Anion gap [Moles/Vol] 12 mmol/L Normal 5-15 [facility] Comment on above: Performed By: #### L 501.2300, L100.0100, L500.4050, L501.9520, L501.5200 ####[facility] [address] [place], [address] AST [Catalytic activity/Vol] 462 U/L High <=31 [facility] Comment on above: Performed By: #### L 501.2300, L100.0100, L500.4050, L501.9520, L501.5200 ####[facility] [address] [place], [address] Bilirubin [Mass/Vol] 0.84 mg/dL Normal 0.00-1.30 [facility] Comment on above: Performed By: #### L 501.2300, L100.0100, L500.4050, L501.9520, L501.5200 ####[facility] [address] [place], [address] BUN/CRE 12.3 RATIO Normal 10-20 [facility] Comment on above: Performed By: #### L 501.2300, L100.0100, L500.4050, L501.9520, L501.5200 ####[facility] [address] [place], [address] Calcium [Mass/Vol] 9.9 mg/dL Normal 7.6-11.0 [facility] Comment on above: Performed By: #### L 501.2300, L100.0100, L500.4050, L501.9520, L501.5200 ####[facility] [address] [place], [address] Chloride [Moles/Vol] 105 mmol/L Normal 96-108 [facility] Comment on above: Performed By: #### L 501.2300, L100.0100, L500.4050, L501.9520, L501.5200 ####[facility] [address] [place], [address] CO2 [Moles/Vol] 21.4 mmol/L Low 22.0-29.0 [facility] Comment on above: Performed By: #### L 501.2300, L100.0100, L500.4050, L501.9520, L501.5200 ####[facility] [address] [place], [address] Creatinine [Mass/Vol] 0.8 mg/dL Normal 0.6-1.0 [facility] Comment on above: Performed By: #### L 501.2300, L100.0100, L500.4050, L501.9520, L501.5200 ####[facility] [address] [place], [address] ECRCL 62.02 ml/min Normal [facility] Comment on above: Performed By: #### L 501.2300, L100.0100, L500.4050, L501.9520, L501.5200 ####[facility] [address] [place], [address] GFR/1.73 sq M.predicted among non-blacks MDRD (S/P/Bld) [Vol rate/Area] 74 mL/min/{1.73_m2} Normal >60 [facility] Comment on above: Result Comment: mL/m in/1.73m2 CKD-EPI Creatinine Equation (2020) Performed By: #### L 501.2300, L100.0100, L500.4050, L501.9520, L501.5200 ####[facility] [address] [place], [address] Globulin (S) [Mass/Vol] 2.0 g/dL Low 2.2-4.2 [facility] Comment on above: Performed By: #### L 501.2300, L100.0100, L500.4050, L501.9520, L501.5200 ####[facility] [address] [place], [address] Glucose [Mass/Vol] 90 mg/dL Normal 70-99 [facility] Comment on above: Performed By: #### L 501.2300, L100.0100, L500.4050, L501.9520, L501.5200 ####[facility] [address] [place], [address] Potassium [Moles/Vol] 4.3 mmol/L Normal 3.3-5.1 [facility] Comment on above: Performed By: #### L 501.2300, L100.0100, L500.4050, L501.9520, L501.5200 ####[facility] [address] [place], [address] Sodium [Moles/Vol] 138 mmol/L Normal 133-145 [facility] Comment on above: Performed By: #### L 501.2300, L100.0100, L500.4050, L501.9520, L501.5200 ####[facility] [address] [place], [address] T PROT 5.5 g/dL Low 5.9-8.4 [facility] Comment on above: Performed By: #### L 501.2300, L100.0100, L500.4050, L501.9520, L501.5200 ####[facility] [address] [place], [address] Urea nitrogen [Mass/Vol] 10 mg/dL Normal 4-19 [facility] Comment on above: Performed By: #### L 501.2300, L100.0100, L500.4050, L501.9520, L501.5200 ####[facility] [address] [place], [address] ENTERIC PATHOGEN PANEL STOOL on 11-13-2024 EP PANEL Normal [facility] Comment on above: Performed By: #### M 100.7900, M100.637 ####[facility] [address] [place], [address] Eosinophil percentageOrdered By: Mae Horton on 11-13-2024 Eosinophils/100 WBC (Bld) 0.6 % 0-5 [facility] Immature granulocytes/100 WB C Auto (Bld)Ordered By: Mae Horton on 11-13-2024 Immature granulocytes/100 WBC (Bld) 0.300 % 0.0-0.9 [facility] Comment on above: IG% - Immature Granu locytes (promyelocytes, myelocytes and metamyelocytes) > 1% indicates that a LEFT SHIFT is Present. Laboratory - Chemistry and C hemistry - challengeOrdered By: Mae Horton on 11-13-2024 AST [Catalytic activity/Vol] 462 U/L High <32 [facility] Lymphocytes Auto (Unsp spec) [#/Vol]Ordered By: Mae Horton on 11-13-2024 Lymphocytes (Bld) [#/Vol] 1.02 10*3/uL 0.83-4.51 [facility] Lymphocytes/100 WBC Auto (Un sp spec)Ordered By: Mae Horton on 11-13-2024 Lymphocytes/100 WBC (Bld) 16.3 % Low 19-41 [facility] Magnesiumon 11-13-2024 Magnesium [Mass/Vol] 1.7 mg/dL Normal 1.5-2.2 [facility] Comment on above: Performed By: #### L 501.2300, L100.0100, L500.4050, L501.9520, L501.5200 ####[facility] [address] [place], [address] Magnesium (Unsp spec) [Mass/ Vol]Ordered By: Mae Horton on 11-13-2024 Magnesium [Mass/Vol] 1.7 mg/dL 1.5-2.2 [facility] Magnesium measurement (mass/ volume)Ordered By: Mae Horton on 11-13-2024 Magnesium (Unsp spec) [Mass/Vol] 1.7 mg/dL 1.5-2.2 [facility] Monocyte percentageOrdered B y: Mae Horton on 11-13-2024 Monocytes/100 WBC (Bld) 14.7 % High 0-10 [facility] Neutrophil percentageOrdered By: Mae Horton on 11-13-2024 Neutrophils/100 WBC (Bld) 67.3 % 47-70 [facility] No Panel InformationOrdered By: Mae Horton on 11-13-2024 462 U/L High <32 [facility] Nucleated red blood cell per centageOrdered By: Mae Horton on 11-13-2024 Nucleated RBC/100 WBC (Bld) [Ratio] 0 % 0-5 [facility] Phosphoruson 11-13-2024 Phosphate [Mass/Vol] 2.9 mg/dL Normal 2.7-4.5 [facility] Comment on above: Performed By: #### L 501.2300, L100.0100, L500.4050, L501.9520, L501.5200 ####[facility] [address] [place], [place], [id number] Serum globulin measurementOr dered By: Mae Horton on 11-13-2024 Globulin (S) [Mass/Vol] 2.0 g/dL Low 2.2-4.2 [facility] Serum or plasma alanine encarnacion otransferase (ALT) measurementOrdered By: Mae Horton on 11-13-2024 ALT [Catalytic activity/Vol] 133 U/L High <35 [facility] Serum or plasma albumin jayro urement (mass/volume)Ordered By: Mae Horton on 11-13-2024 Albumin [Mass/Vol] 3.5 g/dL 3.4-4.8 [facility] Serum or plasma albumin/glob ulin mass ratioOrdered By: Mae Hotron on 11-13-2024 Albumin/Globulin [Mass ratio] 1.7 {ratio} 0.9-2.4 [facility] Serum or plasma alkaline lukas sphatase measurementOrdered By: Mae Horton on 11-13-2024 ALP [Catalytic activity/Vol] 422 U/L High 35-104 [facility] Serum phosphorus measurement Ordered By: Mae Horton on 11-13-2024 Phosphorus Level 2.9 mg/dL 2.7-4.5 [facility] TSH DL <= 0.005 mIU/L QnOrde red By: Mae Horton on 11-13-2024 Thyroid Stimulating Hormone (TSH) 3.530 uIU/mL 0.300-4.200 [facility] TSH Qn 3.530 uIU/mL 0.300-4.200 [facility] Thyroid Stim Hormone (TSH)on 11-13-2024 TSH 3.530 uIU/mL Normal 0.300-4.200 [facility] Comment on above: Performed By: #### L 501.2300, L100.0100, L500.4050, L501.9520, L501.5200 ####[facility] [address] [place], [place], [id number] Total proteinOrdered By: Yamel Horton on 11-13-2024 Protein [Mass/Vol] 5.5 g/dL Low 5.9-8.4 [facility] Abdomen/Pelvis W IV Cont ONL Yon 11-12-2024 Abdomen/Pelvis W IV Cont ONLY Normal [facility] Activated partial thrombopla stin time (aPTT) in platelet poor plasma by coagulation aOrdered By: Austin Mack on 11-12-2024 aPTT Coag (PPP) [Time] 26.4 s 24.1-36.2 [facility] Bacteria LM.HPF (Urine sed) [#/Area]Ordered By: Austin Mack on 11-12-2024 Urine Bacteria RARE /hpf None Seen [facility] Bilirubin Test strip Ql (U)O rdered By: Austin Mack on 11-12-2024 Bilirubin Ql (U) 1 mg/dL High Negative [facility] Comment on above: COLOR OF URINE MAY A FFECT DIPSTICK RESULTS. CBC W/Diff, Automatedon 10-19 Absolute Lymph 0.81 X10 3/uL Low 0.83-4.51 [facility] Comment on above: Performed By: #### L 500.4050, L300.4310, L501.2450, L300.3900, L100.0100 ####[facility] [address] [place], [address] Absolute Neut 5.9 X10 3/uL Normal 2.0-7.7 [facility] Comment on above: Performed By: #### L 500.4050, L300.4310, L501.2450, L300.3900, L100.0100 ####[facility] [address] [place], [address] Basophils/100 WBC (Bld) 0.8 % Normal 0-1 [facility] Comment on above: Performed By: #### L 500.4050, L300.4310, L501.2450, L300.3900, L100.0100 ####[facility] [address] [place], [address] Eosinophils/100 WBC (Bld) 0.3 % Normal 0-5 [facility] Comment on above: Performed By: #### L 500.4050, L300.4310, L501.2450, L300.3900, L100.0100 ####[facility] [address] [place], [address] Erythrocyte distribution width (RBC) [Ratio] 15.1 % High 11.6-14.6 [facility] Comment on above: Performed By: #### L 500.4050, L300.4310, L501.2450, L300.3900, L100.0100 ####[facility] [address] [place], [address] Hematocrit (Bld) [Volume fraction] 41.0 % Normal 37-47 [facility] Comment on above: Performed By: #### L 500.4050, L300.4310, L501.2450, L300.3900, L100.0100 ####[facility] [address] [place], [address] Hemoglobin (Bld) [Mass/Vol] 13.8 g/dL Normal 12.0-15.0 [facility] Comment on above: Performed By: #### L 500.4050, L300.4310, L501.2450, L300.3900, L100.0100 ####[facility] [address] [place], [address] IG% 0.400 Normal 0.0-0.9 [facility] Comment on above: Result Comment: IG% - Immature Granulocytes (promyelocytes, myelocytes andmetamyelocytes) > 1% indicates that a LEFT SHIFT is Present. Performed By: #### L 500.4050, L300.4310, L501.2450, L300.3900, L100.0100 ####[facility] [address] [place], [address] Lymphocytes/100 WBC (Bld) 10.5 % Low 19-41 [facility] Comment on above: Performed By: #### L 500.4050, L300.4310, L501.2450, L300.3900, L100.0100 ####[facility] [address] [place], [address] MCH (RBC) [Entitic mass] 29.4 pg Normal 27.0-32.0 [facility] Comment on above: Performed By: #### L 500.4050, L300.4310, L501.2450, L300.3900, L100.0100 ####[facility] [address] [place], [address] MCHC (RBC) [Mass/Vol] 33.7 g/dL Normal 32-36 [facility] Comment on above: Performed By: #### L 500.4050, L300.4310, L501.2450, L300.3900, L100.0100 ####[facility] [address] [place], [address] MCV (RBC) [Entitic vol] 87.4 fL Normal 81-99 [facility] Comment on above: Performed By: #### L 500.4050, L300.4310, L501.2450, L300.3900, L100.0100 ####[facility] [address] [place], [address] Monocytes/100 WBC (Bld) 12.3 % High 0-10 [facility] Comment on above: Performed By: #### L 500.4050, L300.4310, L501.2450, L300.3900, L100.0100 ####[facility] [address] [place], [address] Neutrophils/100 WBC (Bld) 75.7 % High 47-70 [facility] Comment on above: Performed By: #### L 500.4050, L300.4310, L501.2450, L300.3900, L100.0100 ####[facility] [address] [place], [address] Nucleated RBC (Bld) [#/Vol] 0 10*3/uL Normal 0-5 [facility] Comment on above: Performed By: #### L 500.4050, L300.4310, L501.2450, L300.3900, L100.0100 ####[facility] [address] [place], [address] Platelet mean volume (Bld) [Entitic vol] 11.6 fL Normal 6.2-12.0 [facility] Comment on above: Performed By: #### L 500.4050, L300.4310, L501.2450, L300.3900, L100.0100 ####[facility] [address] [place], [address] Platelets (Bld) [#/Vol] 326 10*3/uL Normal 150-450 [facility] Comment on above: Performed By: #### L 500.4050, L300.4310, L501.2450, L300.3900, L100.0100 ####[facility] [address] [place], [address] RBC (Bld) [#/Vol] 4.69 10*6/uL Normal 4.2-5.4 [facility] Comment on above: Performed By: #### L 500.4050, L300.4310, L501.2450, L300.3900, L100.0100 ####[facility] [address] [place], [address] RDW SD 48.1 fl High 35.1-43.9 [facility] Comment on above: Performed By: #### L 500.4050, L300.4310, L501.2450, L300.3900, L100.0100 ####[facility] [address] [place], [place], [address] WBC (Bld) [#/Vol] 7.7 10*3/uL Normal 4.4-11.0 [facility] Comment on above: Performed By: #### L 500.4050, L300.4310, L501.2450, L300.3900, L100.0100 ####[facility] [address] [place], [address] CNOVon 11-12-2024 CNOV Office Visit (SHIELAWS) ELIABETSY M ([id number]) 1955 F Date Time Provider Department 11/12/24 8:40 AM GIRISH LEMOS During your visit today, [...] Pain: Continues- PET scan completed yesterday HPI Betsydiego Rodrigez is a 69 year old female [...] for diarrhea which is not helping. Has [place] for her back which she has been taking for her abdominal pain without much improvement. Needing to take [place] more than prescribed. Past medical history, appointments, medications, allergies reviewed. Previous Medical History PAST MEDICAL HISTORY Diagnosis Date Anxiety with depression Chronic back pain Chronic kidney disease (CKD), stage III (moderate) (HCC) Colon polyp tubular adenoma [address] 07/16 to 08/17 DDD (degenerative disc disease), lumbar seeing Dr. Johnson Dysphagia Dr. Stiles Ectopic 1991 GERD (gastroesophageal reflux disease) History of prediabetes Hyperlipidemia Hypertension Hypothyroidism Obesity (BMI 30.0-34.9) Other pulmonary embolism without acute cor pulmonale (HCC) [place] [facility] Requ[place] Previous [...] Known Problems Brother Stroke Maternal Grandmother or [place], patient unsure Coronary Artery Disease Maternal Grandfather Alcohol abuse Paternal Grandfather Patient Allergies ALLERGIES Allergen Reactions Meagan Inhibitors Rash Codeine Vomiting, Other: See Comments Headache Remeron [Mirtazapin* Other: See Comments Fatigue Elztjzf-Izv-Vsh Red* Myalgia [place] Unknown Zetia [Ezetimibe] Myalgia Current Medications Current [...] not taking: Reported on 11/05/2024) mv,jaci,iron,mn/folic acid/chol (CGVK-OVYD-YSAOR, PABA, ORAL) Take 1 tablet by mouth once daily. (Patien (more content not included)... Normal [facility] Metabolic Prof florencia 11-12-2024 Albumin [Mass/Vol] 3.9 g/dL Normal 3.4-4.8 [facility] Comment on above: Performed By: #### L 500.4050, L300.4310, L501.2450, L300.3900, L100.0100 ####[facility] [address] [place], [address] Albumin/Globulin [Mass ratio] 1.3 {ratio} Normal 0.9-2.4 [facility] Comment on above: Performed By: #### L 500.4050, L300.4310, L501.2450, L300.3900, L100.0100 ####[facility] [address] [place], [address] ALK PHOS 494 U/L High 35-104 [facility] Comment on above: Performed By: #### L 500.4050, L300.4310, L501.2450, L300.3900, L100.0100 ####[facility] [address] [place], [address] ALT [Catalytic activity/Vol] 142 U/L High <=34 [facility] Comment on above: Performed By: #### L 500.4050, L300.4310, L501.2450, L300.3900, L100.0100 ####[facility] [address] [place], [address] Anion gap [Moles/Vol] 14 mmol/L Normal 5-15 [facility] Comment on above: Performed By: #### L 500.4050, L300.4310, L501.2450, L300.3900, L100.0100 ####[facility] [address] [place], [address] AST [Catalytic activity/Vol] 529 U/L High <=31 [facility] Comment on above: Performed By: #### L 500.4050, L300.4310, L501.2450, L300.3900, L100.0100 ####[facility] [address] [place], [address] Bilirubin [Mass/Vol] 0.97 mg/dL Normal 0.00-1.30 [facility] Comment on above: Performed By: #### L 500.4050, L300.4310, L501.2450, L300.3900, L100.0100 ####[facility] [address] [place], [address] BUN/CRE 19.5 RATIO Normal 10-20 [facility] Comment on above: Performed By: #### L 500.4050, L300.4310, L501.2450, L300.3900, L100.0100 ####[facility] [address] [place], [address] Calcium [Mass/Vol] 10.5 mg/dL Normal 7.6-11.0 [facility] Comment on above: Performed By: #### L 500.4050, L300.4310, L501.2450, L300.3900, L100.0100 ####[facility] [address] [place], [address] Chloride [Moles/Vol] 102 mmol/L Normal 96-108 [facility] Comment on above: Performed By: #### L 500.4050, L300.4310, L501.2450, L300.3900, L100.0100 ####[facility] [address] [place], [address] CO2 [Moles/Vol] 21.8 mmol/L Low 22.0-29.0 [facility] Comment on above: Performed By: #### L 500.4050, L300.4310, L501.2450, L300.3900, L100.0100 ####[facility] [address] [place], [address] Creatinine [Mass/Vol] 0.9 mg/dL Normal 0.6-1.0 [facility] Comment on above: Performed By: #### L 500.4050, L300.4310, L501.2450, L300.3900, L100.0100 ####[facility] [address] [place], [address] ECRCL 54.07 ml/min Normal [facility] Comment on above: Performed By: #### L 500.4050, L300.4310, L501.2450, L300.3900, L100.0100 ####[facility] [address] [place], [address] GFR/1.73 sq M.predicted among non-blacks MDRD (S/P/Bld) [Vol rate/Area] 68 mL/min/{1.73_m2} Normal >60 [facility] Comment on above: Result Comment: mL/m in/1.73m2 CKD-EPI Creatinine Equation (2020) Performed By: #### L 500.4050, L300.4310, L501.2450, L300.3900, L100.0100 ####[facility] [address] [place], [address] Globulin (S) [Mass/Vol] 3.1 g/dL Normal 2.2-4.2 [facility] Comment on above: Performed By: #### L 500.4050, L300.4310, L501.2450, L300.3900, L100.0100 ####[facility] [address] [place], [address] Glucose [Mass/Vol] 102 mg/dL High 70-99 [facility] Comment on above: Performed By: #### L 500.4050, L300.4310, L501.2450, L300.3900, L100.0100 ####[facility] [address] [place], [address] Potassium [Moles/Vol] 4.4 mmol/L Normal 3.3-5.1 [facility] Comment on above: Performed By: #### L 500.4050, L300.4310, L501.2450, L300.3900, L100.0100 ####[facility] [address] [place], [address] Sodium [Moles/Vol] 137 mmol/L Normal 133-145 [facility] Comment on above: Performed By: #### L 500.4050, L300.4310, L501.2450, L300.3900, L100.0100 ####[facility] [address] [place], [place], [id number] T PROT 7.0 g/dL Normal 5.9-8.4 [facility] Comment on above: Performed By: #### L 500.4050, L300.4310, L501.2450, L300.3900, L100.0100 ####[facility] [address] [place], [place], [id number] Urea nitrogen [Mass/Vol] 18 mg/dL Normal 4-19 [facility] Comment on above: Performed By: #### L 500.4050, L300.4310, L501.2450, L300.3900, L100.0100 ####[facility] [address] [place], [place], [phone] Emergency Department Summary on 11-12-2024 Emergency Department Summary Normal [facility] Epithelial cells.squamous LM Ql (Urine sed)Ordered By: Austin Mack on 11-12-2024 Epithelial cells.squamous LM.HPF (Urine sed) [#/Area] 0 /[HPF] 5-10 [facility] Glucose Ql (U)Ordered By: Kelton Mack on 11-12-2024 Urine Glucose (UA) Normal mg/dl Normal [facility] H AND P Exam - Hospitaliston 11-12-2024 H&P Exam - Hospitalist Normal [facility] normalized rat io (INR) calculationOrdered By: Austin Mack on 11-12-2024 INR Coag (Bld) [Relative time] 1.1 {INR} [facility] Ketones Test strip Ql (U)Ord ered By: Austin Mack on 11-12-2024 Ketones Ql (U) 5 mg/dl High Negative [facility] Lipaseon 11-12-2024 Lipase [Catalytic activity/Vol] 154 U/L High 13-75 [facility] Comment on above: Result Comment: Elise brunson note:LIPASE revised reference range effective 22.New Lipase methodology. Expected to produce lower valuesthan the previous assay method.NEW Reference Range: 13 - 75 U/L Performed By: #### L 500.4050, L300.4310, L501.2450, L300.3900, L100.0100 ####[facility] [address] [place], [place], [phone] Lipase measurementOrdered By : Austin Mack on 11-12-2024 Lipase [Catalytic activity/Vol] 154 U/L High 13-75 [facility] Comment on above: Please note:LIPASE r evised reference range effective 22. New Lipase methodology. Expected to produce lower values than the previous assay method. NEW Reference Range: 13 - 75 U/L Lower GI hemoglobin IA Ql (S tl)Ordered By: Mae Horton on 11-12-2024 Stool Occult Blood (MAXWELL) Positive Abnormal [facility] Microscopic analysis of urin e for red blood cells (RBC)Ordered By: Austin Mack on 11-12-2024 Microscopic analysis of urine for red blood cells (RBC) 0 SEEN /hpf 0-5 [facility] Urine RBC 0 SEEN /hpf 0-5 [facility] Mucus LM Ql (Urine sed)Order ed By: Austin Mack on 11-12-2024 Mucus Ql (Urine sed) 0 SEEN /hpf [facility] Nitrite Test strip Ql (U)Ord ered By: Austin Mack on 11-12-2024 Nitrite Ql (U) Negative Negative [facility] Partial Thromboplast Timeon 11-12-2024 aPTT Coag (Bld) [Time] 26.4 s Normal 24.1-36.2 [facility] Comment on above: Performed By: #### L 500.4050, L300.4310, L501.2450, L300.3900, L100.0100 ####[facility] [address] [place], [place], [phone] Protein Test strip Ql (U)Ord ered By: Austin Mack on 11-12-2024 Protein Ql (U) 30 mg/dl High Negative [facility] Prothrombin Time w/INRon INR Coag (PPP) [Relative time] 1.1 {INR} Normal [facility] Comment on above: Performed By: #### L 500.4050, L300.4310, L501.2450, L300.3900, L100.0100 ####[facility] [address] [place], [address] PT Coag (PPP) [Time] 14.2 s Normal 11.7-14.9 [facility] Comment on above: Performed By: #### L 500.4050, L300.4310, L501.2450, L300.3900, L100.0100 ####[facility] [address] [place], [address] Prothrombin timeOrdered By: Austin Mack on 11-12-2024 PT Coag (PPP) [Time] 14.2 s 11.7-14.9 [facility] Squamous epithelial cells de tection in urine sediment by light microscopyOrdered By: Austin Mack on 11-12-2024 Epithelial cells.squamous LM Ql (Urine sed) 0-5 SEEN /hpf 5-10 [facility] Stool Occult Blood iFOBon STOB Positive Normal [facility] Comment on above: Performed By: #### M 100.7900, M100.637 ####[facility] [address] [place], [address] Stool enteric pathogen panel by probe and target amplification methodOrdered By: Mae Horton on 11-12-[address] [facility] Stool gastrointestinal hemog lobin detection by immunologic methodOrdered By: Mae Horton on 11-12-2024 Lower GI hemoglobin IA Ql (Stl) Positive Abnormal [facility] Urinalysis, Completeon 11-12 BACTERIA RARE Normal None Seen [facility] Comment on above: Order Comment: CLEAN CATCH Performed By: #### L 400.0001 ####[facility] [address] [place], [address] EPI,SQUAMOUS 0-5 SEEN Normal 5-10 [facility] Comment on above: Order Comment: CLEAN CATCH Performed By: #### L 400.0001 ####[facility] [address] [place], [address] RBC 0 SEEN Normal 0-5 [facility] Comment on above: Order Comment: CLEAN CATCH Performed By: #### L 400.0001 ####[facility] [address] [place], [address] WBC 0-5 SEEN Normal 0-5 [facility] Comment on above: Order Comment: CLEAN CATCH Performed By: #### L 400.0001 ####[facility] [address] [place], [address] Mucus Ql (Urine sed) [address] [facility] Comment on above: Order Comment: CLEAN CATCH Performed By: #### L 400.0001 ####[facility] [address] [place], [address] Urine blood detectionOrdered By: Austin Mack on 11-12-2024 Urine Occult Blood Negative Negative [facility] Urine clarityOrdered By: Stephanie Mack on 11-12-2024 Clarity (U) Clear Clear [facility] Urine color determinationOrd ered By: Austin Mack on 11-12-2024 Color (U) Yellow Yellow [facility] Urine glucose detectionOrder ed By: Austin Mack on 11-12-2024 Glucose Ql (U) Normal mg/dl Normal [facility] Urine leukocyte esterase det ection by dipstickOrdered By: Austin Mack on 11-12-2024 Leukocyte esterase Test strip Ql (U) Negative Negative [facility] Urine pHOrdered By: Austin palumbo on 11-12-2024 pH (U) 6.0 [pH] 5.0 - 8.0 [facility] Urine sediment bacteria coun t by microscopy (number/high power field)Ordered By: Austin Mack on 11-12-2024 Bacteria LM.HPF (Urine sed) [#/Area] RARE /hpf None Seen [facility] Urine specific gravity measu rementOrdered By: Austin Mack on 11-12-2024 Specific gravity (U) [Rel density] 1.015 1.002-1.030 [facility] Urine urobilinogen measureme ntOrdered By: Austin Mack on 11-12-2024 Urobilinogen Ql (U) 1 mg/dl High Normal [facility] Urobilinogen Ql (U)Ordered B y: Austin Mack on 11-12-2024 Urobilinogen (U) [Mass/Vol] 1 mg/dL High Normal [facility] White blood cell countOrdere d By: Austin Mack on 11-12-2024 Urine WBC 0-5 SEEN /hpf 0-5 [facility] White blood cell count 0-5 SEEN /hpf 0-5 [facility] aPTT Coag (PPP) [Time]Ordere d By: Austin Mack on 11-12-2024 aPTT Coag (Bld) [Time] 26.4 s 24.1-36.2 [facility] PET/CT Tumor Base -Thigh Ini ton 11-11-2024 PET/CT Tumor Base -Thigh Init Normal [facility] CNOVSPon 11-05-2024 CNOVSP Visit (SP) Office (PJ) BETSY RODRIGEZ ([id number]) 1955 F Date Time Provider Department 11/05/24 [...] III (moderate) (HCC) Colon polyp tubular adenoma [address] 07/16 to 08/17 DDD (degenerative disc disease), lumbar seeing Dr. Johnson Dysphagia Dr. Stiles Ectopic 1991 GERD (gastroesophageal reflux disease) History of prediabetes Hyperlipidemia Hypertension Hypothyroidism Obesity (BMI 30.0-34.9) Other pulmonary embolism without acute cor pulmonale (HCC) [facility] Requiring intubation PAST [...] Known Problems Brother Stroke Maternal Grandmother or HI, patient unsure Coronary Artery Disease Maternal Grandfather [...] Headache Remeron [Mirtazapin* Other: See Comments Fatigue Sphzvoe-Hvq-Fgz Red* Myalgia [place] Unknown Zetia [Ezetimibe] Myalgia CURRENT OUTPATIENT MEDICATIONS: [...] not taking: Reported on 11/05/2024) mv,jaci,iron,mn/folic acid/chol (BQVA-UGTY-WFMUC, PABA, ORAL) Take 1 tablet by mouth [...] distress, a (more content not included)... Normal [facility] Alexandrea 11-05-2024 [facility] Telephone (PJ) BETSY RDORIGEZ ([id number]) 1955 F Date Time Provider Department 11/05/24 [...] 14 - Other: See Comments Comments: Fatigue JUJLVTF-FYW-YAP REDUCTASE INHIBIT*11/14/2017 17 - Myalgia WALNUT 10/06/2017 [...] as needed for pain. - mv,jaci,iron,mn/folic acid/chol (QSDM-VWWS-WGCKA, PABA, ORAL) Take 1 tablet by mouth [...] Encounter Status:Closed by JEN BRIGGS on 11/13/24 [facility] Alexandrea 11-04-2024 [employer] [facility] [facility] [employer] (F[facility]WS[facility] BETSY RODRIGEZ ([id number]) 1955 F Date Time Provider Department 11/04/24 GIRISH LEMOS During your visit today, we recorded the following information about you: Terri Dowell RN 11/04/2024 12:18 PM Signed Roxann Gomez CNP [facility] calls and is requesting PCP to [...] Scan on 11/04/2024 1:33 PM by Provider, Vonnie, PAShanikaC: Consultation - Pulmonary Allergies As of Date: 11/04/2024 Noted Allergy Reaction MEAGAN INHIBITORS 10/06/2017 2 - Rash CODEINE 10/06/2017 11 - Vomiting 14 - Other: See Comments Comments: Headache REMERON (MIRTAZAPINE) 01/17/2021 14 - Other: See Comments Comments: Fatigue THYYPGP-KWV-EOR REDUCTASE INHIBIT*11/14/2017 17 - Myalgia WALNUT 10/06/2017 16 - Unknown ZETIA (EZETIMIBE) 01/17/2021 17 - Myalgia Date Reviewed: 10/30/2024 Reviewed by: Viridiana Torres, RT(R) - Fully Assessed Reason for Visit: Return Call Request [[id number]] Prescriptions as of 11/12/2024 - ondansetron orally [...] as needed for pain. - mv,jaci,iron,mn/folic acid/chol (NOGE-NBZE-AHOZB, PABA, ORAL) Take 1 tablet by mouth [...] Encounter Status:Closed by TERRI DOWELL on 11/12/24 [facility] Alexandrea 11-03-2024 [employer] [facility] [facility] [employer] Tele[facility] (PJ) BETSY RODRIGEZ ([id number]) 1955 F Date Time Provider Department 11/03/24 [...] reschedule after patient has pet scan at [facility]. Daughter states wait until results [...] 14 - Other: See Comments Comments: Fatigue ELOKMRT-QEZ-HXV REDUCTASE INHIBIT*11/14/2017 17 - Myalgia WALNUT 10/06/2017 [...] as needed for pain. - mv,jaci,iron,mn/folic acid/chol (GZOJ-DTAV-ICMSU, PABA, ORAL) Take 1 tablet by mouth [...] Status:Closed by JOYCE CISNEROS on 11/03/24 Normal [facility] Pulmonary Visit Reporton Pulmonary Visit Report Normal [facility] 10-31-2024 [facility] Telephone (CHRISTIANO) BETSY RODRIGEZ ([id number]) 1955 F Date Time Provider Department 10/31/[facility] During your visit today, we recorded the following information about you: Chacho Ambriz LPN 10/31/2024 12:13 PM Signed Pt called to request a copy of the disk for the CT of chest pt had done 10/30/24. Pt has an apt on 11-21-24 at [facility] with Pulmonology. Pt is trying to get this moved up. Please advise pt when the disk is done. Chacho Ambriz, Delmis Walker, MICA 10/31/2024 4:05 PM Signed CD READY FOR [employer] [facility] Pt is aware Allergies As of Date: 10/31/2024 Noted Allergy Reaction MEAGAN INHIBITORS 10/06/2017 2 - Rash CODEINE 10/06/2017 11 - Vomiting 14 - Other: See Comments Comments: Headache REMERON (MIRTAZAPINE) 01/17/2021 14 - Other: See Comments Comments: Fatigue ILQSHDA-CBL-EHR REDUCTASE INHIBIT*11/14/2017 17 - Myalgia WALNUT 10/06/2017 [...] as needed for pain. - mv,jaci,iron,mn/folic acid/chol (GQNP-CXCW-OGNFK, PABA, ORAL) Take 1 tablet by mouth [...] Encounter Status:Closed by CH[facility]O [facility]BRIZ [facility]03[facility]OD[facility] ([id number]) 1955 F Date Time Provider Department 10/30/24 [facility] During your visit today, we recorded [...] 14 - Other: See Comments Comments: Fatigue KTDGRKG-JFD-PDL REDUCTASE INHIBIT*11/14/2017 17 - Myalgia WALNUT 10/06/2017 16 - Unknown ZETIA (EZETIMIBE) 01/17/2021 17 - Myalgia Date Reviewed: 10/30/2024 Reviewed by: Viridiana Torres, RT(R) - Fully Assessed Reason for Visit: Patient Request [[id number]] Prescriptions as of 10/30/2024 - ondansetron orally [...] as needed for pain. - mv,jaci,iron,mn/folic acid/chol (PCIU-GBEX-WVNOA, PABA, ORAL) Take 1 tablet by mouth [...] Status:Closed by POONAM DENISE on 10/30/24 Normal [facility] CT CHEST W IVCONon 5 CT CHEST W IVCON * * *Final Report* * * DATE OF EXAM: Oct 30 2024 8:41AM [facility] 0539 - CT CHEST W IVCON [...] lesion 2. Mediastinal and left hilar lymphadenopathy Automotive Services Manager: [facility] Transcribe Date/Time: Oct 30 2024 9:39A Dictated by : MADHU CORNELL MD This examination was interpreted and the report reviewed and electronically signed by: MADHU CORNELL MD on Oct 30 2024 9:52AM EST [id number] Normal [facility] CT Chest W contrast Rosalino IMPRESSION: 1. Irregular left upper lobe perihilar mass which could represent a primary lung malignancy or metastatic lesion 2. Mediastinal and left hilar lymphadenopathy Automotive Services Manager: [facility] Transcribe Date/Time: Oct 30 2024 9:39A Dictated by : MADHU CORNELL MD This examination was interpreted and the report reviewed and electronically signed by: MADHU CORNELL MD on Oct 30 2024 9:52AM EST DIVISION OF RADIOLOGY * * *Final Report* * * DATE OF EXAM: Oct 30 2024 8:41AM [facility] 0539 - CT CHEST W IVCON [...] No additional findings. DIVISION OF RADIOLOGY Provider, [facility] [place] - 10/30/2024 * * *Final Report* * * DATE OF EXAM: Oct 30 2024 8:41AM [facility] 0539 - CT CHEST W IVCON [...] lesion 2. Mediastinal and left hilar lymphadenopathy Automotive Services Manager: [facility] Transcribe Date/Time: Oct 30 2024 9:39A Dictated by : MADHU CORNELL MD This examination was interpreted and the report reviewed and electronically signed by: MADHU CORNELL MD on Oct 30 2024 9:52AM EST [facility] Radiology Study observation (narrative) Anant schneider [facility] CT Chest W contrast IVOrdere d By: [facility] Provider on 10-30-2024 [facility] 10-22-2024 [facility] Telephone (FAMPWS) BETSY RODRIGEZ ([id number]) 1955 F Date Time Provider Department 10/22/24 [facility] During your visit today, we recorded the following information about you: Phylicia Heredia RN 10/22/2024 3:37 PM Signed Patient calls upset that the CT scan of her chest order has been cancelled four times. Patient requests order be sent to [facility] to see if they can see her any sooner that [facility]. Faxed per request to [phone]. Submitted PA to [employer]. Phylicia Heredia RN Allergies As of Date: 10/22/2024 Noted Allergy Reaction MEAGAN INHIBITORS 10/06/2017 2 - Rash CODEINE 10/06/2017 11 - Vomiting 14 - Other: See Comments Comments: Headache REMERON (MIRTAZAPINE) 01/17/2021 14 - Other: See Comments Comments: Fatigue FARBTYQ-VAV-QJU REDUCTASE INHIBIT*11/14/2017 17 - Myalgia WALNUT 10/06/2017 [...] as needed for pain. - mv,jaci,iron,mn/folic acid/chol (TNRA-LVJR-WBXTJ, PABA, ORAL) Take 1 tablet by mouth [...] Status:Closed by PHYLICIA HEREDIA on 10/22/24 Normal [facility] CNPNon 10-20-2024 [employer] [facility] Tele[facility] (FAMWS) BETSY RODRIGEZ ([id number]) 1955 F Date Time Provider Department 10/20/24 [facility] During your visit today, we recorded the following information about you: Mae Wong MA 10/20/2024 10:10 AM Signed ----- Message from Girish Lemos MD sent at 10/19/2024 2:20 PM EST ----- Normal alpha fetoprotein level. Follow up with CT chest and referrals as discussed in office. Mae Wong MA 10/20/2024 10:11 AM Signed Pt notified of results via [employer]. Mae Wong Ma Allergies As of Date: 10/20/2024 Noted Allergy Reaction MEAGAN INHIBITORS 10/06/2017 2 - Rash CODEINE 10/06/2017 11 - Vomiting 14 - Other: See Comments Comments: Headache REMERON (MIRTAZAPINE) 01/17/2021 14 - Other: See Comments Comments: Fatigue YRJGSLV-QIS-IHX REDUCTASE INHIBIT*11/14/2017 17 - Myalgia WALNUT 10/06/2017 [...] as needed for pain. - mv,jaci,iron,mn/folic acid/chol (HQQL-EPJF-RHRQQ, PABA, ORAL) Take 1 tablet by mouth [...] on 10/20/24 [facility] Telephone (HEMAWS) ELIABETSY Lozano ([id number]) 1955 F Date Time Provider Department 10/20/24 BARBARA LEE PJ During your visit today, we recorded the following information about you: NapoleonJyotsna 10/20/2024 8:30 AM Signed Patient has consult [...] is aware of the appointment. BETTYE Santos Mica, Jen 10/31/2024 2:37 PM Signed Appointment scheduled. Allergies As of Date: 10/20/2024 Noted Allergy Reaction MEAGAN INHIBITORS 10/06/2017 2 - Rash CODEINE 10/06/2017 11 - Vomiting 14 - Other: See Comments Comments: Headache REMERON (MIRTAZAPINE) 01/17/2021 14 - Other: See Comments Comments: Fatigue UOPTPBF-DAD-FTA REDUCTASE INHIBIT*11/14/2017 17 - Myalgia WALNUT 10/06/2017 [...] as needed for pain. - mv,jaci,iron,mn/folic acid/chol (NKSL-HYXW-KSODB, PABA, ORAL) Take 1 tablet by mouth [...] Status:Closed by JOYCE CISNEROS on 10/31/24 Normal [facility] AFP SerPl-mCncon 10-17-2024 AFP [Mass/Vol] 6.52 ng/mL Normal <9.00 [facility] Comment on above: Order Comment: Speci men Type: BLOOD SPECIMENOrdering Facility: [facility] Address: [address] [place] [address] Result Comment: The Alpha-Fetoprotein test was performed using the [employer]book Gl[employer] DxI immunoenzymatic assay. Results obtained with different assay methods or kits cannot be used interchangeably. Performed By: #### 1 834-1 ####[facility] LABCLIA [id number] [facility] [id number] [place] [address] [place] CNOVon 10-17-2024 CNOV Office Visit (FAMPWS) BETSY RODRIGEZ ([id number]) 1955 F Date Time Provider Department 10/17/24 [...] pain, currently 5/10. Treating at home with [place] which Dr. Johnson prescribes for her back [...] III (moderate) (HCC) Colon polyp tubular adenoma [address] 07/16 to 08/17 DDD (degenerative disc [...] Cancer Brother lung Stroke Maternal Grandmother or HI, patient unsure Coronary Artery Disease Maternal Grandfather No Known Problems Sister Patient Allergies ALLERGIES Allergen Reactions Meagan Inhibitors Rash Codeine Vomiting, Other: See Comments Headache Remeron [Mirtazapin* Other: See Comments Fatigue Pyjfbxi-Kml-Cbr Red* Myalgia [place] Unknown Zetia [Ezetimibe] Myalgia Current Medications Current [...] nebulizer every (more content not included)... Normal [facility] 10-17-2024 [facility] Telephone (NAVT) BETSY RODRIGEZ ([id number]) 1955 F Date Time Provider Department 10/17/24 LENNOX BELLAMY During your visit today, we recorded the following information about you: Lennox Bellamy, JOJO 10/17/2024 3:56 PM Signed Sw spoke with patient regarding transportation needs. Patient reports that she does live in [place]. Her spouse takes her to doctor appts, he is just not able to drive early in the morning or late at night, due to vision issues. Patient reports I do think that my Medicare Advantage plan has transportation. Patient will give her insurance a call to discuss transportation and see if she has that as a benefit. Patient and Sw also discussed [employer] [facility] [place] [facility]. Sw provided patient with the number for [employer]. [employer] [facility] [place] to address needs of residents. Patient notes that she will check with [employer] if insurance is unable to provide transportation [...] 14 - Other: See Comments Comments: Fatigue UQLYXHD-GAJ-WWK REDUCTASE INHIBIT*11/14/2017 17 - Myalgia WALNUT 10/06/2017 [...] as needed for pain. - mv,jaci,iron,mn/folic acid/chol (RFBN-AHAS-TGHFZ, PABA, ORAL) Take 1 tablet by mouth [...] Status:Closed by LENNOX BELLAMY on 10/20/24 Normal [facility] HAV IgM Ser Qlon 01-31-2025 HAV IgM Ql (S) Negative Normal Negative [facility] Comment on above: Order Comment: Speci men Type: BLOOD SPECIMEN [facility]: [facility] Address: [address] [place] [address] Result Comment: No e vidence of recent infection with Hepatitis A virus. Performed By: #### 2 2314-9, 92362-6, 3 #### [facility] CLIA [id number] [address] [place] [address] [place] HBV core IgM Ser Qlon 2024 HBV core IgM Ql (S) Negative Normal Negative [facility] Comment on above: Order Comment: Pati fajardo Type: BLOOD SPECIMEN Ordering Facility: [facility] Address: [address] [place] [address] Result Comment: No e vidence of recent infection with Hepatitis B virus. Should recent infection be suspected, repeat testing may be considered 3-4 weeks after this draw. Performed By: #### 2 2314-9, 27191-5, 5194-11 #### [facility] CLIA [id number] [address] [place] [address] [place] HBV surface Ag Ser Qlon 09-19 HBV surface Ag Ql (S) Negative Normal Negative [facility] Comment on above: Order Comment: Pati fajardo Type: BLOOD SPECIMEN Ordering Facility: [facility] Address: [address] [place] [address] Performed By: #### 2 2314-9, 34472-4, 5194-11 #### [facility] CLIA [id number] [address] [place] [address] [place] HCV Ab Ser Qlon 10-17-2024 HCV Ab Ql (S) Negative Normal Negative [facility] Comment on above: Order Comment: Pati fajardo Type: BLOOD SPECIMENOrdering Facility: [facility] Address: [address] [place] [address] Result Comment: The result suggests no evidence of active infection with Hepatitis C virus. Should recent infection be suspected, repeat testing may be considered 4-6 weeks after this draw. Performed By: #### 1 6128-1 ####[facility] LABCLIA [id number] [address] [place] Amylase SerPl-cCncon 025 Amylase [Catalytic activity/Vol] 77 U/L Normal 30-104 [facility] Comment on above: Order Comment: Speci men Type: BLOOD SPECIMENOrdering Facility: [facility] Address: [address] [place] [address] Performed By: #### 2 4323-8 ####[facility] [id number] [address] [place]#### 1798-8, 3040-3 ####[facility] LABCLIA [id number] [address] [place] CBC W Auto Differential pane l (Bld)on 10-16-2024 Basophils (Bld) [#/Vol] 0.07 10*3/uL [facility] Basophils/100 WBC (Bld) 1.5 % [facility] Differential cell count method Nom (Bld) Auto [facility] Eosinophils (Bld) [#/Vol] 0.08 10*3/uL [facility] Eosinophils/100 WBC (Bld) 1.7 % [facility] Erythrocyte distribution width (RBC) [Ratio] 13.2 % 11.5 - 15.0 % [facility] Hematocrit (Bld) [Volume fraction] 42.8 % 36.0 - 46.0 % [facility] Hemoglobin (Bld) [Mass/Vol] 14.3 g/dL 11.5 - 15.5 g/dL [facility] Immature granulocytes (Bld) [#/Vol] NINF [facility] Immature granulocytes/100 WBC (Bld) 0.2 % [facility] Lymphocytes (Bld) [#/Vol] 1.31 10*3/uL [facility] Lymphocytes/100 WBC (Bld) 27.6 % [facility] MCH (RBC) [Entitic mass] 29.1 pg 26. 0 - 34.0 pg [facility] MCHC (RBC) [Mass/Vol] 33.4 g/dL 30.5 - 36.0 g/dL [facility] MCV (RBC) [Entitic vol] 87.2 fL 80.0 - 100.0 fL [facility] Monocytes (Bld) [#/Vol] 0.66 10*3/uL [facility] Monocytes/100 WBC (Bld) 13.9 % [facility] Neutrophils (Bld) [#/Vol] 2.61 10*3/uL [facility] Neutrophils/100 WBC (Bld) 55.1 % [facility] Nucleated RBC (Bld) [#/Vol] NINF [facility] Nucleated RBC/100 WBC (Bld) [Ratio] 0.0 % /100 WBC [facility] Platelet mean volume (Bld) [Entitic vol] 11.5 fL 9.0 - 12.7 fL [facility] Platelets (Bld) [#/Vol] 318 10*3/uL [facility] RBC (Bld) [#/Vol] 4.91 10*6/uL 3.90 - 5.2 0 m/uL [facility] WBC (Bld) [#/Vol] 4.74 10*3/uL [facility] Basophils (Bld) [#/Vol] 0.07 10*3/uL Normal <0.11 [facility] Comment on above: Order Comment: Speci men Type: BLOOD SPECIMENOrdering Facility: [facility] Address: [address] [place] [address] Performed By: #### 5 7021-8 ####[facility] [id number] [place] [address] [place] Basophils/100 WBC (Bld) 1.5 % Normal C [facility] Comment on above: Order Comment: Speci men Type: BLOOD SPECIMENOrdering Facility: [facility] Address: [address] [place] [address] Performed By: #### 5 7021-8 ####[facility] ANDERSONLIA [id number] [place] [address] [place] Differential cell count method Nom (Bld) Auto Normal [facility] Comment on above: Order Comment: Speci men Type: BLOOD SPECIMENOrdering Facility: [facility] Address: [address] [place] [address] Performed By: #### 5 7021-8 ####[facility] [id number] [place] [address] [place] Eosinophils (Bld) [#/Vol] 0.08 10*3/uL Normal <0.46 [facility] Comment on above: Order Comment: Speci men Type: BLOOD SPECIMENOrdering Facility: [facility] Address: [address] [place] [address] Performed By: #### 5 7021-8 ####[facility] [id number] [place] [address] [place] Eosinophils/100 WBC (Bld) 1.7 % Normal [facility] Comment on above: Order Comment: Speci men Type: BLOOD SPECIMENOrdering Facility: [facility] Address: [address] [place] [address] Performed By: #### 5 7021-8 ####[facility] [id number] [place] [address] [place] Erythrocyte distribution width (RBC) [Ratio] 13.2 % Normal 11.5-15.0 [facility] Comment on above: Order Comment: Speci men Type: BLOOD SPECIMENOrdering Facility: [facility] Address: [address] [place] [address] Performed By: #### 5 7021-8 ####[facility] [id number] [place] [address] [place] Hematocrit (Bld) [Volume fraction] 42.8 % Normal 36.0-46.0 [facility] Comment on above: Order Comment: Speci men Type: BLOOD SPECIMENOrdering Facility: [facility] Address: [address] [place] [address] Performed By: #### 5 7021-8 ####[facility] LEONWNCLIA [id number] [place] [address] [place] Hemoglobin (Bld) [Mass/Vol] 14.3 g/dL Normal 11.5-15.5 [facility] Comment on above: Order Comment: Speci men Type: BLOOD SPECIMENOrdering Facility: [facility] Address: [address] [place] [address] Performed By: #### 5 7021-8 ####[facility] JACKSONVILLEWLAKESHIALIA [id number] [place] [address] [place] Immature granulocytes (Bld) [#/Vol] 10*3/uL Normal <0.10 [facility] Comment on above: Order Comment: Speci men Type: BLOOD SPECIMENOrdering Facility: [facility] Address: [address] [place] [address] Performed By: #### 5 7021-8 ####[facility] [id number] [place] [address] [place] Immature granulocytes/100 WBC (Bld) 0.2 % Normal [facility] Comment on above: Order Comment: Speci men Type: BLOOD SPECIMENOrdering Facility: [facility] Address: [address] [place] [address] Performed By: #### 5 7021-8 ####[facility] SAMMYWNCLIA [id number] [place] [address] [place] Lymphocytes (Bld) [#/Vol] 1.31 10*3/uL Normal 1.00-4.00 [facility] Comment on above: Order Comment: Speci men Type: BLOOD SPECIMENOrdering Facility: [facility] Address: [address] [place] [address] Performed By: #### 5 7021-8 ####[facility] [id number] [place] [address] [place] Lymphocytes/100 WBC (Bld) 27.6 % Normal [facility] Comment on above: Order Comment: Speci men Type: BLOOD SPECIMENOrdering Facility: [facility] Address: [address] [place] [address] Performed By: #### 5 7021-8 ####[facility] [id number] [place] [address] [place] MCH (RBC) [Entitic mass] 29.1 pg Normal 26.0-34.0 [facility] Comment on above: Order Comment: Speci men Type: BLOOD SPECIMENOrdering Facility: [facility] Address: [address] [place] [address] Performed By: #### 5 7021-8 ####[facility] [id number] [place] [address] [place] MCHC (RBC) [Mass/Vol] 33.4 g/dL Normal 30.5-36.0 [facility] Comment on above: Order Comment: Speci men Type: BLOOD SPECIMENOrdering Facility: [facility] Address: [address] [place] [address] Performed By: #### 5 7021-8 ####[facility] [id number] [place] [address] [place] MCV (RBC) [Entitic vol] 87.2 fL Normal 80.0-100.0 C [facility] Comment on above: Order Comment: Speci men Type: BLOOD SPECIMENOrdering Facility: [facility] Address: [address] [place] [address] Performed By: #### 5 7021-8 ####[facility] [id number] [place] [address] [place] Monocytes (Bld) [#/Vol] 0.66 10*3/uL Normal <0.87 [facility] Comment on above: Order Comment: Speci men Type: BLOOD SPECIMENOrdering Facility: [facility] Address: [address] [place] [address] Performed By: #### 5 7021-8 ####[facility] [id number] [place] [address] [place] Monocytes/100 WBC (Bld) 13.9 % Normal [facility] Comment on above: Order Comment: Speci men Type: BLOOD SPECIMENOrdering Facility: [facility] Address: [address] [place] [address] Performed By: #### 5 7021-8 ####[facility] [id number] [place] [address] [place] Neutrophils (Bld) [#/Vol] 2.61 10*3/uL Normal 1.45-7.50 [facility] Comment on above: Order Comment: Speci men Type: BLOOD SPECIMENOrdering Facility: [facility] Address: [address] [place] [address] Performed By: #### 5 7021-8 ####[facility] [id number] [place] [address] [place] Neutrophils/100 WBC (Bld) 55.1 % Normal [facility] Comment on above: Order Comment: Speci men Type: BLOOD SPECIMENOrdering Facility: [facility] Address: [address] [place] [address] Performed By: #### 5 7021-8 ####[facility] [id number] [place] [address] [place] Nucleated RBC (Bld) [#/Vol] 10*3/uL Normal <0.01 [facility] Comment on above: Order Comment: Speci men Type: BLOOD SPECIMENOrdering Facility: [facility] Address: [address] [place] [address] Performed By: #### 5 7021-8 ####[facility] SAMMYTORRANCEANIYAH [id number] [place] [address] [place] Nucleated RBC/100 WBC (Bld) [Ratio] 0.0 /100 WBC Normal [facility] Comment on above: Order Comment: Speci men Type: BLOOD SPECIMENOrdering Facility: [facility] Address: [address] [place] [address] Performed By: #### 5 7021-8 ####[facility] [id number] [place] [address] [place] Platelet mean volume (Bld) [Entitic vol] 11.5 fL Normal 9.0-12.7 [facility] Comment on above: Order Comment: Speci men Type: BLOOD SPECIMENOrdering Facility: [facility] Address: [address] [place] [address] Performed By: #### 5 7021-8 ####[facility] [id number] [place] [address] [place] Platelets (Bld) [#/Vol] 318 10*3/uL Normal 150-400 [facility] Comment on above: Order Comment: Speci men Type: BLOOD SPECIMENOrdering Facility: [facility] Address: [address] [place] [address] Performed By: #### 5 7021-8 ####[facility] [id number] [place] [address] [place] RBC (Bld) [#/Vol] 4.91 10*6/uL Normal 3.90-5.20 [facility] Comment on above: Order Comment: Speci men Type: BLOOD SPECIMENOrdering Facility: [facility] Address: [address] [place] [address] Performed By: #### 5 7021-8 ####[facility] [id number] [place] [address] [place] WBC (Bld) [#/Vol] 4.74 10*3/uL Normal 3.70-11.00 [facility] Comment on above: Order Comment: Speci men Type: BLOOD SPECIMENOrdering Facility: [facility] Address: [facility] [place] [address] Performed By: #### 5 7021-8 ####[facility] SAMMYTOWNCLIA [id number] [place] [address] [place] CNOVon 10-16-2024 CNOV Office Visit (CHRISTIANO) ELIABETSY ([id number]) 1955 F Date Time Provider Department 10/16/24 8:40 AM OLEG FIELDS During your visit today, we recorded the following information about you: Pulse Respiration Blood pressure Weight 74/minute 14/minute 144/80 73.9 kg 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 10/16/2024 8:53 AM Signed Chief Complaint Patient presents with: Abdominal Pain: X 1 month HPI Betsy Lozano Elia is a 68 [...] III (moderate) (HCC) Colon polyp tubular adenoma [address] 07/16 to 08/17 DDD (degenerative disc [...] Cancer Brother lung Stroke Maternal Grandmother or [place], patient unsure Coronary Artery Disease Maternal Grandfather No Known Problems Sister Patient Allergies ALLERGIES Allergen Reactions Meagan Inhibitors Rash Codeine Vomiting, Other: See Comments Headache Remeron [Mirtazapin* Other: See Comments Fatigue Dsfgkke-Gmu-Bdo Red* Myalgia [place] Unknown Zetia [Ezetimibe] Myalgia Current Medications Current [...] hours as needed for pain. mv,jaci,iron,mn/folic acid/chol (CVCF-IPEB-JWPTI, PABA, ORAL) Take 1 tablet by mouth [...] 05/18/2024 Advance (more content not included)... Normal [facility] 10-16-2024 TAQUERIA Telephone (CHRISTIANO) BETSY RODRIGEZ ([id number]) 1955 F Date Time Provider Department 10/16/24 OLEG FIELDS During your visit today, we recorded the following information about you: Oleg Fields APRN.[employer] 10/16/2024 1:38 PM Signed Please call patient and schedule follow up with Dr. Lemos for tomorrow to discuss results and care plan. Also let patient know I have ordered follow up labs. Arin Muñoz MA 10/16/2024 3:00 PM Signed Pt notified and scheduled for a follow up tomorrow MELVA Mcfarlane Danielle, APRN.FORM[employer]ATOR COMPOUNDER 10/20/2024 10:20 AM Signed Please let patient know her hepatitis panel is negative. Mae Wong MA 10/20/2024 10:40 AM Signed Pt notified of results via FonJaxhart. Mae Wong Ma Allergies As of Date: 10/16/2024 Noted Allergy Reaction MEAGAN INHIBITORS 10/06/2017 2 - Rash CODEINE 10/06/2017 11 - Vomiting 14 - Other: See Comments Comments: Headache REMERON (MIRTAZAPINE) 01/17/2021 14 - Other: See Comments Comments: Fatigue EWHTXXX-CJT-EOR REDUCTASE INHIBIT*11/14/2017 17 - Myalgia [place] 10/06/2017 16 - Unknown ZETIA (EZETIMIBE) 01/17/2021 17 - Myalgia Date Reviewed: 10/16/2024 Reviewed by: Viridiana Torres, RT(R) - Fully Assessed Reason for Visit: Results [95] Primary Visit Diagnosis:Abnormal MRI, liver [R93.2] Order(s):CONSULT TO HEPATOLOGY [[id number]] Order #: [id number]: 1 FUTURE IR INTERVENTIONAL RADIOLOGY CONSULT [[id number]] Order #: [id number] HEP ACUTE PANEL BL [SQHACUTP] Order #: [id number] FUTURE Prescriptions as of 10/20/2024 - ondansetron [...] as needed for pain. - mv,jaci,iron,mn/folic acid/chol (AJWV-MYSJ-URJVO, PABA, ORAL) Take 1 tablet by mouth [...] Status:Closed by MAE WONG on 10/20/24 Normal [facility] CT ABD/PEL W IVCONon 025 CT ABD/PEL W IVCON * * *Final Report* * * DATE OF EXAM: Oct 16 2024 11:11AM [facility] 0530 - CT ABD/PEL W IVCON [...] be communicated with the ordering provider via [employer] staff message or phone message by Imaging Support Services within 2 business days of report finalization. --END OF FINDING-- Algorithms for management of incidental imaging findings can be found on the [facility] Intranet Sharepoint site at: [email or web address]%20Inc idental%20Findi ngs%20at%20Imaging/F orms/AllItems.aspx Automotive Services Manager: CHRISTY Transcribe Date/Time: Oct 16 2024 11:46A Dictated by : GRAHAM BUSTILLO MD This examination was interpreted and the report reviewed and electronically signed by: RGAHAM BUSTILLO MD on Oct 16 2024 11:58AM EST [id number] CN ACTIONABLE Invalid Interpretation Code [facility] CT Abdomen and Pelvis W cont rast IVOrdered By: [facility] Provider on 10-16-2024 Radiology Result ACTIONABLE Abnormal [facility] Comment on above: This report contains [...] contact your provider for the next steps. [facility] CT Abdomen and Pelvis [...] be communicated with the ordering provider via [employer] staff message or phone message by [facility] Support Services within 2 business days of report finalization. --END OF FINDING-- Algorithms for management of incidental imaging findings can be found on the [facility] Intranet Sharepoint site at: [email or web address] [email or web address]%20Inc idental%20Findi ngs%20at%20Imaging/F orms/AllItems.aspx Automotive Services Manager: CHRISTY Transcribe Date/Time: Oct 16 2024 11:46A Dictated by : GRAHAM BUSTILLO MD This examination was interpreted and the report reviewed and electronically signed by: GRAHAM BUSTILLO MD on Oct 16 2024 11:58AM [facility] DIVISION OF RADIOLOGY * * *Final Report* * * DATE OF EXAM: Oct 16 2024 11:11AM [facility] 0530 - CT ABD/PEL W IVCON [...] No additional findings. DIVISION OF RADIOLOGY Provider, [facility] Imaging [place] - 10/16/2024 * * *Final Report* * * DATE OF EXAM: Oct 16 2024 11:11AM [facility] 0530 - CT ABD/PEL W IVCON [...] be communicated with the ordering provider via [employer] staff message or phone message by [facility] Support Services within 2 business days of report finalization. --END OF FINDING-- Algorithms for management of incidental imaging findings can be found on the [facility] Intranet Sharepoint site at: [email or web address] idental%20Findi ngs%20at%20Imaging/F orms/AllItems.aspx Automotive Services Manager: CHRISTY Transcribe Date/Time: Oct 16 2024 11:46A Dictated by : GRAHAM BUSTILLO MD This examination was interpreted and the report reviewed and electronically signed by: GRAHAM BUSTILLO MD on Oct 16 2024 11:58AM EST [facility] Radiology Study observation (narrative) [facility] Comprehensive metabolic 2000 panelOrdered By: Jeanette Streeter on 10-16-2024 Albumin [Mass/Vol] 4.3 g/dL 3.9 - 4.9 g/dL [facility] ALP [Catalytic activity/Vol] 128 U/L High 34 - 123 U/L [facility] ALT [Catalytic activity/Vol] 43 U/L High 7 - 38 U/L [facility] Anion gap [Moles/Vol] 7 mmol/L Low 8 - 15 mmol/L [facility] AST [Catalytic activity/Vol] 117 U/L High 13 - 35 U/L [facility] Bilirubin [Mass/Vol] 0.4 mg/dL 0.2 - 1 .3 mg/dL [facility] Calcium [Mass/Vol] 10.6 mg/dL High 8.5 - 10. 2 mg/dL [facility] Chloride [Moles/Vol] 106 mmol/L 98 - 10 7 mmol/L [facility] CO2 [Moles/Vol] 27 mmol/L 22 - 30 mmol/L [facility] Creatinine [Mass/Vol] 0.86 mg/dL 0.58 - 0.96 mg/dL [facility] GFR/1.73 sq M.predicted among non-blacks MDRD (S/P/Bld) [Vol rate/Area] 73 mL/min/{1.73_m2} - PINF [facility] Comment on above: Estimated [...] 108 mg/dL High 74 - 99 mg/dL [facility] Comment on above: The [place] Diabete s Association (ADA) provides guidance for [...] Standards of Medical Care in Diabetes 2016, [place] [employer]. Diabetes Care. 2016.39(Suppl 1). Potassium [Moles/Vol] 4.3 mmol/L 3.7 - 5.1 mmol/L [facility] Protein [Mass/Vol] 7.3 g/dL 6.3 - 8.0 g/dL [facility] Sodium [Moles/Vol] 140 mmol/L 136 - 144 mmol/L [facility] Urea nitrogen [Mass/Vol] 16 mg/dL 7 - 21 mg/d L [facility] Comprehensive metabolic 2000 panelon 10-16-2024 Albumin [Mass/Vol] 4.3 g/dL Normal 3.9-4.9 [facility] Comment on above: Order Comment: Speci men Type: BLOOD SPECIMENOrdering Facility: [facility] Address: [address] [place] [address] Performed By: #### 2 4323-8 ####[facility] [id number] [place] [address] [place]#### 1798-8, 3040-3 ####[facility] LABCLIA [id number] [place] [address] [place] ALP [Catalytic activity/Vol] 128 U/L High 34-123 [facility] Comment on above: Order Comment: Speci men Type: BLOOD SPECIMENOrdering Facility: [facility] Address: [address] [place] [address] Performed By: #### 2 4323-8 ####[facility] [id number] [place] [address] [place]#### 1798-8, 3040-3 ####[facility] LABCLIA [id number] [place] [address] [place] ALT [Catalytic activity/Vol] 43 U/L High 7-38 [facility] Comment on above: Order Comment: Speci men Type: BLOOD SPECIMENOrdering Facility: [facility] Address: [address] [place] [address] Performed By: #### 2 4323-8 ####[facility]ACKSONVILLEWNCLIA [id number] [place] [address] [place]#### 1798-8, 3040-3 ####[facility] LABCLIA [id number] [place] [address] [place] Anion gap [Moles/Vol] 7 mmol/L Low 8-15 [facility] Comment on above: Order Comment: Speci men Type: BLOOD SPECIMENOrdering Facility: [facility] Address: [address] [place] [address] Performed By: #### 2 4323-8 ####[facility] MILLTOWNCLIA [id number] [place] [address] [place]#### 1798-8, 3040-3 ####[facility] LABCLIA [id number] [place] [address] [place] AST [Catalytic activity/Vol] 117 U/L High 13-35 [facility] Comment on above: Order Comment: Speci men Type: BLOOD SPECIMENOrdering Facility: [facility] Address: [address] [place] [address] Performed By: #### 2 4323-8 ####[facility] MILLTOWNCLIA [id number] [place] [address] [place]#### 1798-8, 3040-3 ####[facility] LABCLIA [id number] [place] [address] [place] Bilirubin [Mass/Vol] 0.4 mg/dL Normal 0.2-1.3 [facility] Comment on above: Order Comment: Speci men Type: BLOOD SPECIMENOrdering Facility: [facility] Address: [address] [place] [address] Performed By: #### 2 4323-8 ####[facility] MILLTOWNCLIA [id number] [address] [place]#### 1798-8, 3040-3 ####[facility] LABCLIA [id number] [place] [address] [place] Calcium [Mass/Vol] 10.6 mg/dL High 8.5-10.2 [facility] Comment on above: Order Comment: Speci men Type: BLOOD SPECIMENOrdering Facility: [facility] Address: [address] [place] [address] Performed By: #### 2 4323-8 ####[facility] MILLTOWNCLIA [id number] [place] [address] [place]#### 1798-8, 3040-3 ####[facility] LABCLIA [id number] [place] [address] [place] Chloride [Moles/Vol] 106 mmol/L Normal 98-107 [facility] Comment on above: Order Comment: Speci men Type: BLOOD SPECIMENOrdering Facility: [facility] Address: [address] [place] [address] Performed By: #### 2 4323-8 ####[facility]ACKSONVILLEWNCLIA [id number] [place] [address] [place]#### 1798-8, 3040-3 ####[facility] LABCLIA [id number] [place] [address] [place] CO2 [Moles/Vol] 27 mmol/L Normal 22-30 [facility] Comment on above: Order Comment: Speci men Type: BLOOD SPECIMENOrdering Facility: [facility] Address: [address] [place] [id number] Performed By: #### 2 4323-8 ####[facility] MILLTOWNCLIA [id number] [place] [address] [place]#### 1798-8, 3039-3 ####[facility] LABCLIA [id number] [place] [address] [place] Creatinine [Mass/Vol] 0.86 mg/dL Normal 0.58-0.96 [facility] Comment on above: Order Comment: Speci men Type: BLOOD SPECIMENOrdering Facility: [facility] Address: [address] [place] [address] Performed By: #### 2 4323-8 ####[facility] [id number] [place] [address] [place]#### 1798-8, 3 ####[facility] LABIA [id number] [place] [address] [facility] Creatinine and Glomerular filtration rate.predicted panel (S/P/Bld) 73 mL/min/1.73m??? Normal >=60 [facility] Comment on above: Order Comment: Pati fajardo Type: BLOOD SPECIMENOrdering Facility: [facility] Address: [address] [place] [address] Result Comment: Jazlyn mated Glomerular Filtration Rate [...] actual GFR. Performed By: #### 2 4323-8 ####[facility] [id number] [place] [address] [place]#### 1798-8, 3039-3 ####[facility] LABIA [id number] [place] [address] [place] Glucose [Mass/Vol] 108 mg/dL High 74-99 [facility] Comment on above: Order Comment: Speci men Type: BLOOD SPECIMENOrdering Facility: [facility] Address: [address] [place] [address] Result Comment: The [place] Diabetes Association (ADA) provides guidance for cutoff [...] Standards of Medical Care in Diabetes 2016, [place] Diabetes Association. Diabetes Care. 2016.39(Suppl 1). Performed By: #### 2 4323-8 ####[facility] [id number] [place] [address] [place]#### 1798-8, 3040-3 ####[facility] LABCLIA [id number] [place] [address] [place] Potassium [Moles/Vol] 4.3 mmol/L Normal 3.7-5.1 [facility] Comment on above: Order Comment: Changi men Type: BLOOD SPECIMENOrdering Facility: [facility] Address: [address] [place] [address] Performed By: #### 2 4323-8 ####[facility] [id number] [place] [address] [place]#### 1798-8, 3040-3 ####[facility] LABCLIA [id number] [place] [address] [place] Protein [Mass/Vol] 7.3 g/dL Normal 6.3-8.0 [facility] Comment on above: Order Comment: Speci men Type: BLOOD SPECIMENOrdering Facility: [facility] Address: [address] [place] [address] Performed By: #### 2 4323-8 ####[facility] [id number] [place] [address] [place]#### 1798-8, 3040-3 ####[facility] LABCLIA [id number] [place] [address] [place] Sodium [Moles/Vol] 140 mmol/L Normal 136-144 [facility] Comment on above: Order Comment: Speci men Type: BLOOD SPECIMENOrdering Facility: [facility] Address: [address] [place] [address] Performed By: #### 2 4323-8 ####[facility] [id number] [place] [address] [place]#### 1798-8, 3040-3 ####[facility] LABCLIA [id number] [place] [address] [place] Urea nitrogen [Mass/Vol] 16 mg/dL Normal 7-21 [facility] Comment on above: Order Comment: Speci men Type: BLOOD SPECIMENOrdering Facility: [facility] Address: [address] [place] [address] Performed By: #### 2 4323-8 ####[facility] [id number] [place] [address] [place]#### 1798-8, 3040-3 ####[facility] LABCLIA [id number] [place] [address] [place] Lipase SerPl-cCncon 10-16-19 25 Lipase [Catalytic activity/Vol] 77 U/L High 16-61 [facility] Comment on above: Order Comment: Speci men Type: BLOOD SPECIMENOrdering Facility: [facility] Address: [address] [place] [id number] Performed By: #### 2 4323-8 ####[facility] IRAM CHRISTIANSONTORRANCELAKESHIAJany [id number] [place] [address] [place]#### 1798-8, 3040-3 ####[facility] LABCLIA [id number] [facility] [id number] [place] No Panel InformationOrdered By: Ccf Provider on 10-16-2024 Interpretation and review of laboratory results Abnormal [facility] CNOVon 09-19-2024 CNOV Office Visit (FAMPWS) BETSY RODRIGEZ ([id number]) 1955 F Date Time Provider Department 09/19/24 9:40 AM GIRISH LEMOS During your visit today, we recorded the following information about you: Pulse Respiration Blood pressure Weight 73/minute 18/minute 124/68 74.9 kg Girish Lemos MD 09/19/2024 1:08 PM Signed Chief Complaint Patient presents with: Blood Pressure: Recheck-losartan increased to 50mg.No note of call back from [facility] [place] around 09/03/24 as requested with readings. Patient reports am readings higher but was advised by visiting nurse to take prior to medication. 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 Johnson Dysphagia Dr. Stiles Ectopic 1991 GERD (gastroesophageal reflux disease) History of prediabetes Hyperlipidemia Hypertension Hypothyroidism Obesity (BMI 30.0-34.9) Other pulmonary embolism without acute cor pulmonale (HCC) Pneumonia due to [facility]- virus Requiring intubation Previous Surgical History PAST [...] Cancer Brother lung Stroke Maternal Grandmother or HI, patient unsure Coronary Artery Disease Maternal Grandfather No Known Problems Sister Patient Allergies ALLERGIES Allergen Reactions Meagan Inhibitors Rash Codeine Vomiting, Other: See Comments Headache Remeron [Mirtazapin* Other: See Comments Fatigue Acdbcpy-Roi-Vtu Red* Myalgia [place] Unknown Zetia [Ezetimibe] Myalgia Current Medications Current [...] mouth two times a day. mv,jaci,iron,mn/folic acid/chol (BWCJ-PXWS-KECYV, PABA, ORAL) Take 1 tablet by mouth [...] content not included)... Normal [facility] Alexandrea 08-27-2024 [facility] (FAMDamirWS[facility] BETSY RODRIGEZ ([id number]) 1955 F Date Time Provider Department 08/27/24 GIRISH LEMOS During your visit today, we recorded the following information about you: Marta Meadows RN 08/27/2024 9:44 AM Signed Jeanne- [facility] [place]- reports she received a referral from patient's insurance company, once patient's losartan was increased, for their 3 mth monitoring program. [facility] monitors quality of life, checks VS's, [...] 10:51 AM Signed Jeanne- [facility] [place] called and is notified of providers message and instructions. She voices understanding and will send updated Bps in one week. Rachael Baker RN Allergies As of Date: 08/27/2024 Noted Allergy Reaction MEAGAN INHIBITORS 10/06/2017 2 - Rash CODEINE 10/06/2017 11 - Vomiting 14 - Other: See Comments Comments: Headache REMERON (MIRTAZAPINE) 01/17/2021 14 - Other: See Comments Comments: Fatigue UAJUGZV-KYC-ZMV REDUCTASE INHIBIT*11/14/2017 17 - Myalgia WALNUT 10/06/2017 [...] as needed for pain. 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 Johnson Dysphagia Dr. Stiles Ectopic 1991 GERD (gastroesophageal reflux disease) History of prediabetes Hyperlipidemia Hypertension Hypothyroidism Obesity (BMI 30.0-34.9) Other pulmonary embolism without acute cor pulmonale (HCC) Pneumonia due to [place] [address] virus Requiring intubation ALLERGIES Meagan Inhibitors, Codeine, Remeron [Mirtazapine], Wvmpldn-Fsf-Erp Reductase Inhibitors, [place], and Zetia [Ezetimibe] MEDICATIONS Current Outpatient Medications [...] hours as needed for pain. mv,jaci,iron,mn/folic acid/chol (QHAL-BXTT-EAVBH, PABA, ORAL) Take 1 tablet by mouth [...] to treatmen (more content not included)... Normal [facility] CNOVon 07-15-2024 CNOV Office Visit (FAMVANESA) BETSY RODRIGEZ ([id number]) 1955 F Date Time Provider Department 07/15/24 [...] No. 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 Last visit in May. 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 Johnson Dysphagia Dr. Stiles Ectopic 1991 GERD (gastroesophageal reflux disease) History of prediabetes Hyperlipidemia Hypertension Hypothyroidism Obesity (BMI 30.0-34.9) Other pulmonary embolism without acute cor pulmonale (HCC) [facility] Requiring intubation ALLERGIES Meagan Inhibitors, Codeine, Remeron [Mirtazapine], Khkmwms-Vgr-Uyl Reductase Inhibitors, [place], and Zetia [Ezetimibe] MEDICATIONS Current Outpatient Medications [...] hours as needed for pain. mv,jaci,iron,mn/folic acid/chol (ARRZ-JWOJ-XLNTY, PABA, ORAL) Take 1 tablet by mouth [...] or lesions to exposed skin Latest Ref [facility] 01/18/2024 WBC 3.70 - 11.00 k/uL [...] - 7 (more content not included)... Normal [facility] Comprehensive metabolic 2000 panelon 07-15-2024 Albumin [Mass/Vol] 4.5 g/dL Normal 3.9-4.9 [facility] Comment on above: Order Comment: Speci men Type: BLOOD SPECIMEN [facility] Address: [address] [place] [address] Performed By: #### 2 2314-9, 28484-9, 5194-3 #### [facility] LAB CLIA [id number] [address] [place] [address] [place] ALP [Catalytic activity/Vol] 86 U/L Normal 34-123 [facility] Comment on above: Order Comment: Speci men Type: BLOOD SPECIMEN [facility] Address: [address] [place] [address] Performed By: #### 2 2314-9, 08260-5, 3 #### [facility] CLIA [id number] [address] [place] [address] [place] ALT [Catalytic activity/Vol] 20 U/L Normal 7-38 [facility] Comment on above: Order Comment: Speci men Type: BLOOD SPECIMEN [facility]: [facility] Address: [address] [place] [address] Performed By: #### 2 2314-9, 31469-0, 3 #### [facility] CLIA [id number] [address] [place] [address] [place] Anion gap [Moles/Vol] 11 mmol/L Normal 8-15 [facility] Comment on above: Order Comment: Speci men Type: BLOOD SPECIMEN Order[facility]: [facility] Address: [address] [place] [address] Performed By: #### 2 2314-9, 24071-1, 5194-3 #### [facility] LAB CLIA [id number] [address] [place] [address] [place] AST [Catalytic activity/Vol] 27 U/L Normal 13-35 [facility] Comment on above: Order Comment: Speci men Type: BLOOD SPECIMEN [facility]: [facility] Address: [address] [place] [address] Performed By: #### 2 2314-9, 93217-3, 3 #### [facility] CLIA [id number] [address] [place] [address] [place] Bilirubin [Mass/Vol] 0.3 mg/dL Normal 0.2-1.3 [facility] Comment on above: Order Comment: Speci men Type: BLOOD SPECIMEN [facility] Address: [address] [place] [address] Performed By: #### 2 2314-9, 49722-1, 3 #### [facility] CLIA [id number] [address] [place] [address] [place] Calcium [Mass/Vol] 9.7 mg/dL Normal 8.5-10.2 [facility] Comment on above: Order Comment: Speci men Type: BLOOD SPECIMEN [facility]: [facility] Address: [address] [place] [address] Performed By: #### 2 2314-9, 64865-8, 3 #### [facility] CLIA [id number] [address] [place] [address] [place] Chloride [Moles/Vol] 108 mmol/L High 98-107 [facility] Comment on above: Order Comment: Speci men Type: BLOOD SPECIMEN [facility] Address: [address] [place] [address] Performed By: #### 2 2314-9, 83387-7, 3 #### [facility] CLIA [id number] [address] [place] [address] [place] CO2 [Moles/Vol] 25 mmol/L Normal 22-30 [facility] Comment on above: Order Comment: Speci men Type: BLOOD SPECIMEN [facility]: [facility] Address: [address] [place] [address] Performed By: #### 2 2314-9, 26330-0, 3 #### [facility] CLIA [id number] [address] [place] [address] [place] Creatinine [Mass/Vol] 0.90 mg/dL Normal 0.58-0.96 [facility] Comment on above: Order Comment: Speci men Type: BLOOD SPECIMEN [facility] Address: [address] [place] [address] Performed By: #### 2 2314-9, 51890-1, 5194-11 #### [facility] CLIA [id number] [address] [place] [address] [place] Creatinine and Glomerular filtration rate.predicted panel (S/P/Bld) 69 mL/min/1.73m??? Normal >=60 [facility] Comment on above: Order Comment: Pati fajardo Type: BLOOD SPECIMEN [facility]: [facility] Address: [address] [place] [address] Result Comment: Jazlyn mated Glomerular Filtration Rate [...] actual GFR. Performed By: #### 2 2314-9, 17284-0, 3 #### [facility] CLIA [id number] [address] [place] [address] [place] Glucose [Mass/Vol] 81 mg/dL Normal 74-99 [facility] Comment on above: Order Comment: Changi men Type: BLOOD SPECIMEN [facility]: [facility] Address: [address] [place] [id number] Result Comment: The [place] Diabetes Association (ADA) provides guidance for cutoff [...] Standards of Medical Care in Diabetes 2016, [place] Diabetes Association. Diabetes Care. 2016.39(Suppl 1). Performed By: #### 2 2314-9, 41409-7, 5- #### [facility] CLIA [id number] [address] [place] [address] [place] Potassium [Moles/Vol] 3.8 mmol/L Normal 3.7-5.1 [facility] Comment on above: Order Comment: Speci men Type: BLOOD SPECIMEN Order[facility]: [facility] Address: [address] [place] [address] Performed By: #### 2 2314-9, 99972-4, 5194-11 #### [facility] CLIA [id number] [address] [place] [address] [place] Protein [Mass/Vol] 6.9 g/dL Normal 6.3-8.0 [facility] Comment on above: Order Comment: Speci men Type: BLOOD SPECIMEN Ordering Facility: [facility] Address: [address] [place] [address] Performed By: #### 2 2314-9, 15063-3, 3 #### [facility] CLIA [id number] [address] [place] [address] [place] Sodium [Moles/Vol] 144 mmol/L Normal 136-144 [facility] Comment on above: Order Comment: Speci men Type: BLOOD SPECIMEN Order[facility]: [facility] Address: [address] [place] [address] Performed By: #### 2 2314-9, 47626-2, 5195-3 #### [facility] CLIA [id number] [address] [place] [address] [place] Urea nitrogen [Mass/Vol] 15 mg/dL Normal 7-21 [facility] Comment on above: Order Comment: Pati men Type: BLOOD SPECIMEN Order[facility]: [facility] Address: [address] [place] [address] Performed By: #### 2 2314-9, 07648-7, 5195-3 #### [facility] CLIA [id number] [address] [place] [address] [place] HbA1c (Bld)on 07-15-2024 Average glucose Estimated from glycated hemoglobin (Bld) [Mass/Vol] 120 mg/dL Normal [facility] Comment on above: Order Comment: Pati fajardo Type: BLOOD SPECIMEN Order[facility]: [facility] Address: [address] [place] [address] Result Comment: eAG: (Estimated average glucose) is a calculated value from HgbA1c and is graphic art sales representative of the average blood glucose level in the last 2-3 month period. Performed By: #### 5 5454-3 #### [facility] CLIA [id number] [address] [place] [address] [place] HbA1c (Bld) [Mass fraction] 5.8 % High 4.3-5.6 [facility] Comment on above: Order Comment: Pati tana Type: BLOOD SPECIMEN Ordering [facility]: [facility] Address: [address] [place] [address] Result Comment: [place] Diabetes Association guidelines indicate that patients with HgbA1c in the range 5.7-6.4% are at increased risk for development of diabetes, and intervention by lifestyle modification may be beneficial. HgbA1c greater or equal to 6.5% is considered diagnostic of diabetes. Performed By: #### 5 5454-3 #### [facility] CLIA [id number] [address] [place] [address] [place] Pulmonary Visit Reporton Pulmonary Visit Report Normal [facility] CV ARTERIAL U OR L SINGLE PH YSIOLOon 06-13-2024 CV ARTERIAL U OR L SINGLE [address] [address] Patient: BETSY RODRIGEZ Phone#: : [phone] Age: 68 Gender: F Pt. Type: Out Account: [id number] Location: 052 Ordering: XUAN GRACIA Exam Date: 06/13/2024/7:48 Family Phys: GIRISH LEMOS Charge Code: [id number] Physician: Collier Order #: [id number] Dose#: PROCEDURE: ARTERIAL BILAT U OR L [...] 181 184 Ankle (DPA): 190 186 Ankle (INSURANCE APPRAISER): 209 193 ANKLE BRACHIAL INDEX RIGHT LEFT 1.14 1.05 Sea Kay[employer] Guide: RICARDO FINDINGS: Right Lower Extremity: The right lower extremity demonstrates normal triphasic Doppler signals at the posterior tibial, and dorsalis pedis arteries. Volume pulse recordings are normal throughout the extremity demonstrating a sharp systolic peak and prominent dicrotic notch. Left Lower Extremity: Continued Report - Page 2 of 2 Patient: BETSY RODRIGEZ Phone#: : 1955 Age: 68 Gender: F Pt. Type: Out Account: [id number] Location: 052 Ordering: XUAN GARCIA Exam Date: 06/13/2024/7:48 Family Phys: GIRISH LEMOS Charge Code: [id number] Physician: Collier Order #: [id number] Dose#: The left lower extremity demonstrates normal [...] Bonner MD on 06/13/2024 at 13:12 Normal [facility] Fluor Guidance for Spine Inj on 06-02-2024 Fluor Guidance for Spine Inj Normal [facility] MR/POSTOP.ANEon 06-02-2024 MR/POSTOP.ANE Normal [facility] MR/[id number] 06-02-2024 MR/POSTOPAN2 Normal [facility] Operative Reporton Operative Report Normal [facility] LIPID PROFILEon 03-06-2024 Cholesterol [Mass/Vol] 231 mg/dL Normal 0 - 240 [facility] Comment on above: Performed By: #### 2 99021 #### [facility],[address] [place] [address] Cholesterol in HDL [Mass/Vol] 66 mg/dL High 40 - 60 [facility] Comment on above: Performed By: #### 2 95101 #### [facility],[address] [place] [address] Cholesterol in LDL [Mass/Vol] 151 mg/dL High 0 - 129 [facility] Comment on above: Performed By: #### 2 20830 #### [facility],[address] [place] [address] Cholesterol.total/Choles terol in HDL [Mass ratio] 3.5 {ratio} Normal 0.0 - 5.0 [facility] Comment on above: Performed By: #### 2 90668 #### [facility],[address] [place] [address] Lipid 1996 panel Normal [facility] Comment on above: Result Comment: LIPI D PROFILE Performed By: #### 2 02921 #### [facility],[address] [place] [address] Triglyceride [Mass/Vol] 71 mg/dL Normal 0 - 150 [facility] Comment on above: Performed By: #### 2 87531 #### [facility],[address] [place] [address] LIPID PROFILEon 06-21-2023 Cholesterol [Mass/Vol] 159 mg/dL Normal 0 - 240 [facility] Comment on above: Performed By: #### 2 85057 #### [facility],[address] [place] [address] Cholesterol in HDL [Mass/Vol] 62 mg/dL High 40 - 60 [facility] Comment on above: Performed By: #### 2 22990 #### [facility],[address] [place] [address] Cholesterol in LDL [Mass/Vol] 86 mg/dL Normal 0 - 129 [facility] Comment on above: Performed By: #### 2 33462 #### [facility],[address] [place] [address] Cholesterol.total/Choles terol in HDL [Mass ratio] 2.6 {ratio} Normal 0.0 - 5.0 [facility] Comment on above: Performed By: #### 2 12130 #### [facility],[address] [place] [address] Lipid 1996 panel Normal [facility] Comment on above: Result Comment: LIPI D PROFILE Performed By: #### 2 91948 #### [facility],[address] [place] [address] Triglyceride [Mass/Vol] 57 mg/dL Normal 0 - 150 [facility] Comment on above: Performed By: #### 2 98238 #### [facility],[address] [place], [place] [address] CBC W Auto Differential pane l (Bld)on 02-20-2023 Basophils (Bld) [#/Vol] 0.05 10*3/uL <0.11 k/uL [facility] Basophils/100 WBC (Bld) 0.9 % C [facility] Differential cell count method Nom (Bld) Auto [facility] Eosinophils (Bld) [#/Vol] 0.15 10*3/uL <0.46 k/uL [facility] Eosinophils/100 WBC (Bld) 2.8 % [facility] Erythrocyte distribution width (RBC) [Ratio] 13.0 % 11.5 - 15.0 % [facility] Hematocrit (Bld) [Volume fraction] 46.0 % 36.0 - 46.0 % [facility] Hemoglobin (Bld) [Mass/Vol] 14.9 g/dL 11.5 - 15.5 g/dL [facility] Immature granulocytes (Bld) [#/Vol] <0.10 k/uL [facility] Immature granulocytes/100 WBC (Bld) 0.4 % [facility] Lymphocytes (Bld) [#/Vol] 1.41 10*3/uL 1.00 - 4.00 k/uL [facility] Lymphocytes/100 WBC (Bld) 26.2 % [facility] MCH (RBC) [Entitic mass] 28.8 pg 26. 0 - 34.0 pg [facility] MCHC (RBC) [Mass/Vol] 32.4 g/dL 30.5 - 36.0 g/dL [facility] MCV (RBC) [Entitic vol] 88.8 fL 80.0 - 100.0 fL [facility] Monocytes (Bld) [#/Vol] 0.66 10*3/uL <0.87 k/uL [facility] Monocytes/100 WBC (Bld) 12.2 % C [facility] Neutrophils (Bld) [#/Vol] 3.10 10*3/uL 1.45 - 7.50 k/uL [facility] Neutrophils/100 WBC (Bld) 57.5 % [facility] Nucleated RBC (Bld) [#/Vol] <0.01 k/uL [facility] Nucleated RBC/100 WBC (Bld) [Ratio] 0.0 /100 WBC [facility] Platelet mean volume (Bld) [Entitic vol] 10.9 fL 9.0 - 12.7 fL [facility] Platelets (Bld) [#/Vol] 308 10*3/uL 150 - 400 k/uL [facility] RBC (Bld) [#/Vol] 5.18 10*6/uL 3.90 - 5.2 0 m/uL [facility] WBC (Bld) [#/Vol] 5.39 10*3/uL 3.70 - 11. 00 k/uL [facility] XR FOOT GENERAL 3V AP/LAT/OB L LEFTon 01-24-2023 [facility] DXA-AXIAL SKELETONon 023 LOWEST T-SCORE -0.7 [facility] Absolute lymphocyte counton 09-13-2022 Lymphocytes Auto (Unsp spec) [#/Vol] 1.57 10*3/uL 0.83-4.51 [facility] Work Phone: Basophil percentageon 2021 Basophils/100 WBC (Bld) 0.6 % 0-1 [facility] Work Phone: Bilirubin [Mass/Vol] 0.50 mg/dL 0.20-1.00 [facility] Work Phone: Comment on above: For patients on eltr ombopag therapy, use of Dimension Pyote TBIL is not recommended. Chloride [Moles/Vol] 107 mmol/L 98-107 [facility] Work Phone: Eosinophils/100 WBC (Bld) 1.8 % 0-5 [facility] Work Phone: Glucose [Mass/Vol] 102 mg/dL 74-106 [facility] Work Phone: Comment on above: Fasting Glucose resu lt from 100 to 125 mg/dL suggests IMPAIRED HOMEOSTASIS per A.D.A. criteria. Neutrophils (Bld) [#/Vol] 4.4 10*3/uL 2.0-7.7 [facility] Work Phone: Neutrophils/100 WBC (Bld) 62.2 % 47-70 [facility] Work Phone: Potassium [Moles/Vol] 4.9 mmol/L 3.5-5.1 [facility] Work Phone: Comment on above: Moderate Hemolysis, Result may be falsely increased. Protein [Mass/Vol] 7.2 g/dL 6.4-8.2 [facility] Work Phone: Sodium [Moles/Vol] 141 mmol/L 136-145 [facility] Work Phone: [phone] WBC (Bld) [#/Vol] 7.1 10*3/uL 4.4-11.0 [facility] Work Phone: [phone] Blood erythrocytes count (nu mber/volume)on 09-13-2022 RBC (Bld) [#/Vol] 5.37 10*6/uL 4.2-5.4 [facility] Work Phone: [phone] Blood hemoglobin measurement (mass/volume)on 09-13-2022 Hemoglobin (Bld) [Mass/Vol] 15.8 g/dL 12.0-15.0 [facility] Work Phone: [phone] Blood lymphocytes/100 leukoc yteson 09-13-2022 Lymphocytes/100 WBC (Bld) 22.2 % 19-41 [facility] Work Phone: [phone] Blood monocytes/100 leukocyt eson 09-13-2022 Monocytes/100 WBC (Bld) 12.4 % 0-10 [facility] Work Phone: [phone] Blood platelet mean volumeon 09-13-2022 Platelet mean volume (Bld) [Entitic vol] 9.7 fL 6.2-12.0 [facility] Work Phone: Determination of erythrocyte mean corpuscular volume (MCV)on 09-13-2022 MCV (RBC) [Entitic vol] 88.5 fL 81-99 [facility] Work Phone: [phone] Hematocrit Auto (Bld) [Volum e fraction]on 09-13-2022 Hematocrit (Bld) [Volume fraction] 47.5 % 37-47 [facility] Work Phone: Laboratory - Chemistry and C hemistry - challengeon 09-13-2022 ALP [Catalytic activity/Vol] 100 U/L 45-117 [facility] Work Phone: [phone] ALT [Catalytic activity/Vol] 69 U/L 13-56 [facility] Work Phone: [phone] CO2 [Moles/Vol] 27.0 mmol/L 21.0-32.0 [facility] Work Phone: [phone] Globulin (S) [Mass/Vol] 3.9 g/dL 2.2-4.2 [facility] Work Phone: [phone] Urea nitrogen/Creatinine [Mass ratio] 17.6 mg/mg 10-20 [facility] Work Phone: [phone] Laboratory - Hematology and Cell countson 09-13-2022 Erythrocyte distribution width (RBC) [Entitic vol] 42.7 fL 35.1-43.9 [facility] Work Phone: [phone] Erythrocyte distribution width (RBC) [Ratio] 13.1 % 11.6-14.6 [facility] Work Phone: [phone] Immature granulocytes/100 WBC (Bld) 0.800 % 0.0-0.9 [facility] Work Phone: [phone] Comment on above: IG% - Immature Granu locytes (promyelocytes, myelocytes and metamyelocytes) > 1% indicates that a LEFT SHIFT is Present. MCH (RBC) [Entitic mass] 29.4 pg 27.0-32.0 [facility] Work Phone: [phone] Nucleated RBC/100 WBC (Bld) [Ratio] 0 % 0-5 [facility] Work Phone: [phone] MCHC Auto (RBC) [Mass/Vol]on 09-13-2022 MCHC (RBC) [Mass/Vol] 33.3 g/dL 32-36 [facility] Work Phone: [phone] Panel Informationon 09-13 Estimated Creatinine Clearance Calc 41.81 ml/min [facility] Work Phone: [phone] Estimated GFR (MDRD) Amer 65 mL/min >60 [facility] Work Phone: Comment on above: GFR Calc Estimated GFR (MDRD) Non-Af Amer 54 mL/min >60 [facility] Work Phone: Comment on above: Non- GFR Calc Platelets bldon 09-13-2022 Platelets (Bld) [#/Vol] 336 10*3/uL 150-450 [facility] Work Phone: Serum or plasma albumin jayro urement (mass/volume)on 09-13-2022 Albumin [Mass/Vol] 3.3 g/dL 3.2-5.0 [facility] Work Phone: Serum or plasma albumin/glob ulin mass ratioon 09-13-2022 Albumin/Globulin [Mass ratio] 0.8 {ratio} 0.9-2.4 [facility] Work Phone: Serum or plasma calcium jayro urement (mass/volume)on 09-13-2022 Calcium [Mass/Vol] 9.3 mg/dL 8.5-10.1 [facility] Work Phone: Serum or plasma creatinine m easurement (mass/volume)on 09-13-2022 Creatinine [Mass/Vol] 1.08 mg/dL 0.55-1.02 [facility] Work Phone: Comment on above: The validity of the calculated GFR & GFRAA in patients over 70 years has not been determined. Clinical correlation is essential. Serum or plasma urea nitroge n measurement (mass/volume)on 09-13-2022 Urea nitrogen [Mass/Vol] 19 mg/dL 7-18 [facility] Work Phone: Thin prep Papanicolaou smear with manual screeningon 09-13-2022 Thin prep Papanicolaou smear with manual screening 53 U/L 15-37 [facility] Work Phone: Comment on above: Moderate Hemolysis, Result may be falsely increased. Thin prep Papanicolaou smear with manual screening 7 5-15 [facility] Work Phone: UA DIP, URINE (POC)on 2021 BILIRUBIN UA (POCT) Negative Negative [facility] CLARITY UA (POCT) Slightly Cloudy Cl [facility] COLOR UA (POCT) Dark yellow [facility] GLUCOSE UA (POCT) Negative Negative mg/dL [facility] HEMOGLOBIN/BLOOD UA (POCT) Large Abnormal Negative [facility] KETONE UA (POCT) Negative Negative mg/dL [facility] LEUKOCYTES UA (POCT) Negative [facility] ([facility]) Negative Negative [facility] PH UA (POCT) 5.5 4.5 - 8.0 [facility] Protein Ql (U) 30 mg/dL Abnormal Negative mg/dL [facility] SPECIFIC GRAVITY UA (POCT) 1.025 1.005 - 1.030 [facility] UROBILINOGEN UA (POCT) 0.2 E.U./dL Mellissa l E.U./dL [facility] 2019 CORONAVIRUSon SARS-CoV-2 (COVID-19) RNA DEBBY+probe Ql (Resp) SARS-CoV-2 (Agent of COVID-19) Not Detected by RT-PCR or equivalent method. Not Detected [facility] XR Chest PA and Lateralon IMPRESSION: Stable chest. No acute cardiopulmonary process. Automotive Services Manager: PSCB Transcribe Date/Time: Nov 25 2021 1:45P Dictated by : JANN KUMAR MD This examination was interpreted and the report reviewed and electronically signed by: JANN KUMAR MD on Nov 25 2021 1:48PM [facility] DIVISION OF RADIOLOGY * * *Final [...] structures are intact DIVISION OF RADIOLOGY Provider, [facility] [place] - 11/25/2021 * * *Final Report* * [...] IMPRESSION: Stable chest. No acute cardiopulmonary process. Automotive Services Manager: CHRISTY Transcribe Date/Time: Nov 25 2021 1:45P Dictated by : JANN KUMAR MD This examination was interpreted and the report reviewed and electronically signed by: JANN KUMAR MD on Nov 25 2021 1:48PM [facility] Radiology Study observation (narrative) [facility] XR Chest PA and LateralOrder ed By: [facility]cf Provider on 11-25-2021 [facility] Absolute lymphocyte counton 11-17-2021 Lymphocytes Auto (Unsp spec) [#/Vol] 0.65 10*3/uL 0.83-4.51 [facility] Work Phone: Basophil percentageon 2021 Basophils/100 WBC (Bld) 0.2 % 0-1 [facility] Work Phone: Chloride [Moles/Vol] 103 mmol/L 98-107 [facility] Work Phone: Eosinophils/100 WBC (Bld) 0.2 % 0-5 [facility] Work Phone: Glucose [Mass/Vol] 98 mg/dL 74-106 [facility] Work Phone: Neutrophils (Bld) [#/Vol] 5.0 10*3/uL 2.0-7.7 [facility] Work Phone: Neutrophils/100 WBC (Bld) 75.4 % 47-70 [facility] Work Phone: Potassium [Moles/Vol] 3.5 mmol/L 3.5-5.1 [facility] Work Phone: Sodium [Moles/Vol] 135 mmol/L 136-145 [facility] Work Phone: WBC (Bld) [#/Vol] 6.7 10*3/uL 4.4-11.0 [facility] Work Phone: Blood erythrocytes count (nu mber/volume)on 11-17-2021 RBC (Bld) [#/Vol] 4.70 10*6/uL 4.2-5.4 [facility] Work Phone: Blood hemoglobin measurement (mass/volume)on 11-17-2021 Hemoglobin (Bld) [Mass/Vol] 13.5 g/dL 12.0-15.0 [facility] Work Phone: Blood lymphocytes/100 leukoc yteson 11-17-2021 Lymphocytes/100 WBC (Bld) 9.8 % 19-41 [facility] Work Phone: Blood monocytes/100 leukocyt eson 11-17-2021 Monocytes/100 WBC (Bld) 13.5 % 0-10 [facility] Work Phone: Blood platelet mean volumeon 11-17-2021 Platelet mean volume (Bld) [Entitic vol] 10.9 fL 6.2-12.0 [facility] Work Phone: [phone] Determination of erythrocyte mean corpuscular volume (MCV)on 11-17-2021 MCV (RBC) [Entitic vol] 86.2 fL 81-99 [facility] Work Phone: [phone] Hematocrit Auto (Bld) [Volum e fraction]on 11-17-2021 Hematocrit (Bld) [Volume fraction] 40.5 % 37-47 [facility] Work Phone: [phone] Laboratory - Chemistry and C hemistry - challengeon 11-17-2021 CO2 [Moles/Vol] 27.0 mmol/L 21.0-32.0 [facility] Work Phone: [phone] Urea nitrogen/Creatinine [Mass ratio] 17.5 mg/mg 10-20 [facility] Work Phone: [phone] Laboratory - Hematology and Cell countson 11-17-2021 Erythrocyte distribution width (RBC) [Entitic vol] 42.7 fL 35.1-43.9 [facility] Work Phone: [phone] Erythrocyte distribution width (RBC) [Ratio] 13.4 % 11.6-14.6 [facility] Work Phone: [phone] Immature granulocytes/100 WBC (Bld) 0.900 % 0.0-0.9 [facility] Work Phone: [phone] Comment on above: IG% - Immature Granu locytes (promyelocytes, myelocytes and metamyelocytes) > 1% indicates that a LEFT SHIFT is Present. MCH (RBC) [Entitic mass] 28.7 pg 27.0-32.0 [facility] Work Phone: [phone] Nucleated RBC/100 WBC (Bld) [Ratio] 0 % 0-5 [facility] Work Phone: [phone] MCHC Auto (RBC) [Mass/Vol]on 11-17-2021 MCHC (RBC) [Mass/Vol] 33.3 g/dL 32-36 [facility] Work Phone: [phone] Panel Informationon 11-17 Estimated Creatinine Clearance Calc 43.84 ml/min [facility] Work Phone: Estimated GFR (MDRD) Amer 69 mL/min >60 [facility] Work Phone: Comment on above: GFR Calc Estimated GFR (MDRD) Non-Af Amer 57 mL/min >60 [facility] Work Phone: Comment on above: Non- GFR Calc Platelets bldon 11-17-2021 Platelets (Bld) [#/Vol] 228 10*3/uL 150-450 [facility] Work Phone: Serum or plasma calcium jayro urement (mass/volume)on 11-17-2021 Calcium [Mass/Vol] 9.1 mg/dL 8.5-10.1 [facility] Work Phone: Serum or plasma creatinine m easurement (mass/volume)on 11-17-2021 Creatinine [Mass/Vol] 1.03 mg/dL 0.55-1.02 [facility] Work Phone: Comment on above: The validity of the calculated GFR & GFRAA in patients over 70 years has not been determined. Clinical correlation is essential. Serum or plasma urea nitroge n measurement (mass/volume)on 11-17-2021 Urea nitrogen [Mass/Vol] 18 mg/dL 7-18 [facility] Work Phone: Thin prep Papanicolaou smear with manual screeningon 11-17-2021 Thin prep Papanicolaou smear with manual screening 5 5-15 [facility] Work Phone: XR Chest PA and [...] to pulmonary artery hypertension or hilar lymphadenopathy. Automotive Services Manager: CHRISTY Transcribe Date/Time: Nov 15 2021 3:09P Dictated by : RAJIV DONOVAN MD This examination was interpreted and the report reviewed and electronically signed by: RAJIV DONOVAN MD on Nov 15 2021 3:43PM [facility] DIVISION OF RADIOLOGY * * *Final [...] right chest wall. DIVISION OF RADIOLOGY Provider, [facility] - 11/15/2021 * * *Final Report* * [...] to pulmonary artery hypertension or hilar lymphadenopathy. Automotive Services Manager: CHRISTY Transcribe Date/Time: Nov 15 2021 3:09P Dictated by : RAJIV DONOVAN MD This examination was interpreted and the report reviewed and electronically signed by: RAJIV DONOVAN MD on Nov 15 2021 3:43PM EST [facility] Radiology Study observation (narrative) [facility] XR Chest PA and LateralOrder ed By: [facility] Provider on 11-15-2021 [facility] Absolute lymphocyte counton 11-12-2021 Lymphocytes Auto (Unsp spec) [#/Vol] 0.57 10*3/uL 0.83-4.51 [facility] Work Phone: Basophil percentageon 2021 Basophils/100 WBC (Bld) 0.6 % 0-1 [facility] Work Phone: Chloride [Moles/Vol] 108 mmol/L 98-107 [facility] Work Phone: Eosinophils/100 WBC (Bld) 0.5 % 0-5 [facility] Work Phone: Glucose [Mass/Vol] 135 mg/dL 74-106 [facility] Work Phone: Comment on above: Fasting Glucose resu lt greater than or equal to 126 mg/dL suggests DIABETES MELLITUS per A.D.A. criteria. Neutrophils (Bld) [#/Vol] 4.8 10*3/uL 2.0-7.7 [facility] Work Phone: Neutrophils/100 WBC (Bld) 74.4 % 47-70 [facility] Work Phone: Potassium [Moles/Vol] 3.7 mmol/L 3.5-5.1 [facility] Work Phone: Sodium [Moles/Vol] 140 mmol/L 136-145 [facility] Work Phone: WBC (Bld) [#/Vol] 6.5 10*3/uL 4.4-11.0 [facility] Work Phone: Blood erythrocytes count (nu mber/volume)on 11-12-2021 RBC (Bld) [#/Vol] 4.93 10*6/uL 4.2-5.4 [facility]: Blood hemoglobin measurement (mass/volume)on 11-12-2021 Hemoglobin (Bld) [Mass/Vol] 14.6 g/dL 12.0-15.0 [facility] Work Phone: Blood lymphocytes/100 leukoc yteson 11-12-2021 Lymphocytes/100 WBC (Bld) 8.8 % 19-41 [facility] Work Phone: [phone] Blood manual differential co mment interpretation (narrative result)on 11-12-2021 Manual differential comment Scott (Bld) [Interp] See comment [facility] Work Phone: Comment on above: LYMPHOPENIA NOTED Blood monocytes/100 leukocyt eson 11-12-2021 Monocytes/100 WBC (Bld) 15.4 % 0-10 [facility] Work Phone: Blood platelet adequacy dete ction by light microscopyon 11-12-2021 Platelets LM Ql (Bld) ADEQUATE ADEQ [facility] Work Phone: Blood platelet mean volumeon 11-12-2021 Platelet mean volume (Bld) [Entitic vol] 10.2 fL 6.2-12.0 [facility] Work Phone: [phone] Determination of erythrocyte mean corpuscular volume (MCV)on 11-12-2021 MCV (RBC) [Entitic vol] 86.0 fL 81-99 [facility] Work Phone: [phone] Hematocrit Auto (Bld) [Volum e fraction]on 11-12-2021 Hematocrit (Bld) [Volume fraction] 42.4 % 37-47 [facility] Work Phone: Laboratory - Chemistry and C hemistry - challengeon 11-12-2021 CO2 [Moles/Vol] 24.0 mmol/L 21.0-32.0 [facility] Work Phone: [phone] Urea nitrogen/Creatinine [Mass ratio] 13.3 mg/mg 10-20 [facility] Work Phone: [phone] Laboratory - Hematology and Cell countson 11-12-2021 Erythrocyte distribution width (RBC) [Entitic vol] 42.1 fL 35.1-43.9 [facility] Work Phone: [phone] Erythrocyte distribution width (RBC) [Ratio] 13.4 % 11.6-14.6 [facility] Work Phone: [phone] Immature granulocytes/100 WBC (Bld) 0.300 % 0.0-0.9 [facility] Work Phone: [phone] Comment on above: IG% - Immature Granu locytes (promyelocytes, myelocytes and metamyelocytes) > 1% indicates that a LEFT SHIFT is Present. MCH (RBC) [Entitic mass] 29.6 pg 27.0-32.0 [facility] Work Phone: [phone] Nucleated RBC/100 WBC (Bld) [Ratio] 0 % 0-5 [facility] Work Phone: [phone] MCHC Auto (RBC) [Mass/Vol]on 11-12-2021 MCHC (RBC) [Mass/Vol] 34.4 g/dL 32-36 [facility] Work Phone: [phone] Panel Informationon 11-12 Estimated Creatinine Clearance Calc 43.01 ml/min [facility] Work Phone: [phone] Estimated GFR (MDRD) Amer 67 mL/min >60 [facility] Work Phone: [phone] Comment on above: GFR Calc Estimated GFR (MDRD) Non-Af Amer 56 mL/min >60 [facility] Work Phone: [phone] Comment on above: Non- GFR Calc SARS-CoV-2 Antigen (Rapid) [facility] Work Phone: [phone] Platelets bldon 11-12-2021 Platelets (Bld) [#/Vol] 264 10*3/uL 150-450 [facility] Work Phone: RBC morphologyon 11-12-2021 RBC morphology finding Nom (Bld) NORM C+C NORMAL NORM C&C [facility] Work Phone: Serum or plasma calcium jayro urement (mass/volume)on 11-12-2021 Calcium [Mass/Vol] 9.5 mg/dL 8.5-10.1 [facility] Work Phone: Serum or plasma creatinine m easurement (mass/volume)on 11-12-2021 Creatinine [Mass/Vol] 1.05 mg/dL 0.55-1.02 [facility] Work Phone: Comment on above: The validity of the calculated GFR & GFRAA in patients over 70 years has not been determined. Clinical correlation is essential. Serum or plasma urea nitroge n measurement (mass/volume)on 11-12-2021 Urea nitrogen [Mass/Vol] 14 mg/dL 7-18 [facility] Work Phone: Thin prep Papanicolaou smear with manual screeningon 11-12-2021 Thin prep Papanicolaou smear with manual screening 8 5-15 [facility] Work Phone: Vital Signs Date Time Vital Sign Value Performing Clinician Facility 04-13-2025 10:59-0400 Body height 160.[address] Fabricio Lemos MD Work Phone: [facility] 04-13-2025 10:59-0400 Body mass index (BMI) [Ratio] 25.2 kg/m2 Dr. Fabricio Lemos MD Work Phone: [facility] 04-13-2025 10:59-0400 Body temperature 97.7 [degF] Dr. Fabricio Lemos MD Work Phone: [facility] 04-13-2025 10:59-0400 Body weight 64.[address] Fabricio Lemos MD Work Phone: [facility] 04-13-2025 10:59-0400 Diastolic blood pressure 75 mm[Hg] Dr. Fabricio Lemos MD Work Phone: [phone] [address] 04-13-2025 10:59-0400 Heart rate 75 /min Dr. Fabricio Lemos MD Work Phone: [phone])512-17[address] [place] [address] 04-13-2025 10:59-0400 Respiratory rate 16 /min Dr. Fabricio Lemos MD Work Phone: 4(622)650-152780 [place] [address] 04-13-2025 10:59-0400 SaO2% (BldA) [Mass fraction] 94 % Dr. Fabricio Lemos MD Work Phone: [phone])798-095280 [place] [address] 04-13-2025 10:59-0400 Systolic blood pressure 135 mm[Hg] Dr. Fabricio Lemos MD Work Phone: 0(806)139-012480 [place] [address] 04-06-2025 10:33-0400 Body height 160.[address] Fabricio Lemos MD Work Phone: 6(325)022-734280 [place] [address] 04-06-2025 10:33-0400 Body mass index (BMI) [Ratio] 25 kg/m2 Dr. Fabricio Lemos MD Work Phone: 6(333)148-516380 [place] [address] 04-06-2025 10:33-0400 Body temperature 98.3 [degF] Dr. Fabricio Lemos MD Work Phone: 4(491)875-764580 [place] [address] 04-06-2025 10:33-0400 Body weight 64.[address] Fabricio Lemos MD Work Phone: 8(470)713-273580 [place] [address] 04-06-2025 10:33-0400 Diastolic blood pressure 75 mm[Hg] Dr. Fabricio Lemos MD Work Phone: 8(391)984-810480 [place] [address] 04-06-2025 10:33-0400 Heart rate 76 /min Dr. Fabricio Lemos MD Work Phone: 9(760)378-499680 [place] [address] 04-06-2025 10:33-0400 Respiratory rate 18 /min Dr. Fabricio Lemos MD Work Phone: 4(582)622-193480 [place] [address] 04-06-2025 10:33-0400 SaO2% (BldA) [Mass fraction] 93 % Dr. Fabricio Lemos MD Work Phone: 2(478)006-553880 [place] [address] 04-06-2025 10:33-0400 Systolic blood pressure 135 mm[Hg] Dr. Fabricio Lemos MD Work Phone: 9(906)943-202080 [place] [address] 04-05-2025 22:20-0400 Body temperature 97.9 [degF] Dr. Fabricio Lemos MD Work Phone: 0(097)633-065380 [place] [address] 04-05-2025 22:20-0400 Diastolic blood pressure 78 mm[Hg] Dr. Fabricio Lemos MD Work Phone: 1(284)267-253680 [place] [address] 04-05-2025 22:20-0400 Heart rate 75 /min Dr. Fabricio Lemos MD Work Phone: 8(410)098-121780 [place] [address] 04-05-2025 22:20-0400 Respiratory rate 14 /min Dr. Fabricio Lemos MD Work Phone: 3(907)871-618880 [place] [address] 04-05-2025 22:20-0400 SaO2% (BldA) [Mass fraction] 99 % Dr. Fabricio Lemos MD Work Phone: 2(250)676-379580 [place] [address] 04-05-2025 22:20-0400 Systolic blood pressure 145 mm[Hg] Dr. Fabricio Lemos MD Work Phone: 3(328)960-086780 [place] [address] 04-05-2025 20:22-0400 Body mass index (BMI) [Ratio] 25 kg/m2 Dr. Fabricio Lemos MD Work Phone: 7(424)946-359180 [place] [address] 04-05-2025 20:22-0400 Body weight [address] Fabricio Lemos MD Work Phone: 8(143)774-992480 [place] [address] 04-05-2025 19:38-0400 Body height 160.[address] Fabricio Lemos MD Work Phone: 4(744)871-852980 [place] [address] 03-19-2025 14:43-0400 Body temperature 96.1 [degF] Dr. Fabricio Lemos MD Work Phone: 3(542)601-519880 [place] [address] 03-19-2025 14:43-0400 Diastolic blood pressure 74 mm[Hg] Dr. Fabricio Lemos MD Work Phone: 7(474)998-514080 [place] [address] 03-19-2025 14:43-0400 Heart rate 66 /min Dr. Fabricio Lemos MD Work Phone: 3(233)426-710780 [place] [address] 03-19-2025 14:43-0400 Respiratory rate 16 /min Dr. Fabricio Lemos MD Work Phone: 0(241)050-019380 [place] [address] 03-19-2025 14:43-0400 SaO2% (BldA) [Mass fraction] 94 % Dr. Fabricio Lemos MD Work Phone: 3(107)760-259780 [place] [address] 03-19-2025 14:43-0400 Systolic blood pressure 139 mm[Hg] Dr. Fabricio Lemos MD Work Phone: 8(553)673-592680 [place] [address] 03-16-2025 12:14-0400 Body weight 65.[address] Fabricio Lemos MD Work Phone: 6(979)330-330780 [place] [address] 03-16-2025 09:15-0400 Body height 160.[address] Fabricio Lemos MD Work Phone: 0(191)934-773780 [place] [address] 03-16-2025 09:15-0400 Body mass index (BMI) [Ratio] 25.4 kg/m2 Dr. Fabricio Lemos MD Work Phone: 8(807)438-589580 [place] [address] 03-16-2025 09:15-0400 Body temperature 97.3 [degF] Dr. Fabricio Lemos MD Work Phone: 8(651)480-199880 [place] [address] 03-16-2025 09:15-0400 Body weight 65.[address] Fabricio Lemos MD Work Phone: 5(892)921-045680 [place] [address] 03-16-2025 09:15-0400 Diastolic blood pressure 76 mm[Hg] Dr. Fabricio Lemos MD Work Phone: 5(962)613-721480 [place] [address] 03-16-2025 09:15-0400 Heart rate 65 /min Dr. Fabricio Lemos MD Work Phone: 8(015)202-324480 [place] [address] 03-16-2025 09:15-0400 Respiratory rate 16 /min Dr. Fabricio Lemos MD Work Phone: 9(750)825-253080 [place] [address] 03-16-2025 09:15-0400 SaO2% (BldA) [Mass fraction] 92 % Dr. Fabricio Lemos MD Work Phone: 6(087)710-924980 [place] [address] 03-16-2025 09:15-0400 Systolic blood pressure 128 mm[Hg] Dr. Fabricio Lemos MD Work Phone: 3(141)130-305180 [place] [address] 02-27-2025 14:42-0400 Body temperature 98.1 [degF] Dr. Fabricio Lemos MD Work Phone: 6(088)696-790180 [place] [address] 02-27-2025 14:42-0400 Diastolic blood pressure 70 mm[Hg] Dr. Fabricio Lemos MD Work Phone: 7(343)845-576880 [place] [address] 02-27-2025 14:42-0400 Heart rate 64 /min Dr. Fabricio Lemos MD Work Phone: 5(865)128-923280 [place] [address] 02-27-2025 14:42-0400 Respiratory rate 16 /min Dr. Fabricio Lemos MD Work Phone: 1(928)778-414680 [place] [address] 02-27-2025 14:42-0400 SaO2% (BldA) [Mass fraction] 94 % Dr. Fabricio Lemos MD Work Phone: 6(375)567-069880 [place] [address] 02-27-2025 14:42-0400 Systolic blood pressure 138 mm[Hg] Dr. Fabricio Lemos MD Work Phone: 5(836)007-979280 [place] [address] 02-24-2025 09:13-0400 Body height 160.[address] Fabricio Lemos MD Work Phone: 8(627)564-458480 [place] [address] 02-24-2025 09:13-0400 Body mass index (BMI) [Ratio] 25.5 kg/m2 Dr. Fabricio Lemos MD Work Phone: 0(059)896-522280 [place] [address] 02-24-2025 09:13-0400 Body temperature 98.6 [degF] Dr. Fabricio Lemos MD Work Phone: 3(499)217-773180 [place] [address] 02-24-2025 09:13-0400 Body weight 65.[address] Fabricio Lemos MD Work Phone: 1(266)651-295680 [place] [address] 02-24-2025 09:13-0400 Diastolic blood pressure 79 mm[Hg] Dr. Fabricio Lemos MD Work Phone: 8(513)146-906980 [place] [address] 02-24-2025 09:13-0400 Heart rate 63 /min Dr. Fabricio Lemos MD Work Phone: 2(028)217-224180 [place] [address] 02-24-2025 09:13-0400 Respiratory rate 16 /min Dr. Fabricio Lemos MD Work Phone: 1(170)393-363380 [place] [address] 02-24-2025 09:13-0400 SaO2% (BldA) [Mass fraction] 94 % Dr. Fabricio Lemos MD Work Phone: 3(050)985-510180 [place] [address] 02-24-2025 09:13-0400 Systolic blood pressure 136 mm[Hg] Dr. Fabricio Lemos MD Work Phone: 5(930)891-961380 [place] [address] 02-16-2025 09:00-0400 Body temperature 98.2 [degF] Dr. Fabricio Lemos MD Work Phone: 8(242)285-823880 [place] [address] 02-16-2025 09:00-0400 Diastolic blood pressure 58 mm[Hg] Dr. Fabricio Lemos MD Work Phone: 9(550)014-915380 [place] [address] 02-16-2025 09:00-0400 Heart rate 70 /min Dr. Fabricio Lemos MD Work Phone: 3(555)782-448780 [place] [address] 02-16-2025 09:00-0400 Respiratory rate 16 /min Dr. Fabricio Lemos MD Work Phone: 1(584)636-358380 [place] [address] 02-16-2025 09:00-0400 SaO2% (BldA) [Mass fraction] 94 % Dr. Fabricio Lemos MD Work Phone: 9(836)936-559080 [place] [address] 02-16-2025 09:00-0400 Systolic blood pressure 105 mm[Hg] Dr. Fabricio Lemos MD Work Phone: 0(369)538-536180 [place] [address] 02-16-2025 07:38-0400 Body height 160.[address] Fabricio Lemos MD Work Phone: 0(634)291-671180 [place] [address] 02-16-2025 07:38-0400 Body mass index (BMI) [Ratio] 25.7 kg/m2 Dr. Fabricio Lemos MD Work Phone: 2(844)189-114680 [place] [address] 02-16-2025 07:38-0400 Body weight [address] Fabricio Lemos MD Work Phone: 6(498)017-386180 [place] [address] 02-06-2025 12:18-0400 Body temperature 97.2 [degF] Dr. Fabricio Lemos MD Work Phone: 7(192)977-107780 [place] [address] 02-06-2025 12:18-0400 Diastolic blood pressure 82 mm[Hg] Dr. Fabricio Lemos MD Work Phone: 1(476)681-478380 [place] [address] 02-06-2025 12:18-0400 Heart rate 57 /min Dr. Fabricio Lemos MD Work Phone: 4(833)017-055080 [place] [address] 02-06-2025 12:18-0400 Respiratory rate 16 /min Dr. Fabricio Lemos MD Work Phone: 6(504)776-194980 [place] [address] 02-06-2025 12:18-0400 SaO2% (BldA) [Mass fraction] 97 % Dr. Fabricio Lemos MD Work Phone: 0(831)781-210380 [place] [address] 02-06-2025 12:18-0400 Systolic blood pressure 156 mm[Hg] Dr. Fabricio Lemos MD Work Phone: 5(623)135-998680 [place] [address] 02-05-2025 12:48-0400 Body mass index (BMI) [Ratio] 26.1 kg/m2 Dr. Fabricio Lemos MD Work Phone: 2(485)098-270080 [place] [address] 02-05-2025 12:48-0400 Body weight 66.[address] Fabricio Lemos MD Work Phone: 9(754)293-034680 [place] [address] 02-03-2025 09:31-0400 Body height 160.[address] Fabricio Lemos MD Work Phone: 5(616)650-037880 [place] [address] 02-03-2025 09:31-0400 Body weight 64.[address] Fabricio Lemos MD Work Phone: 4(840)155-834780 [place] [address] 02-03-2025 09:01-0400 Body mass index (BMI) [Ratio] 25 kg/m2 Dr. Fabricio Lemos MD Work Phone: 0(451)556-953380 [place] [address] 02-03-2025 09:01-0400 Body temperature 97.4 [degF] Dr. Fabricio Lemos MD Work Phone: 4(249)555-603380 [place] [address] 02-03-2025 09:01-0400 Body weight 64.[address] Fabricio Lemos MD Work Phone: 7(452)531-952680 [place] [address] 02-03-2025 09:01-0400 Diastolic blood pressure 81 mm[Hg] Dr. Fabricio Lemos MD Work Phone: 5(462)960-367580 [place] [address] 02-03-2025 09:01-0400 Heart rate 76 /min Dr. Fabricio Lemos MD Work Phone: 2(085)918-942680 [place] [address] 02-03-2025 09:01-0400 Respiratory rate 16 /min Dr. Fabricio Lemos MD Work Phone: 4(587)152-754680 [place] [address] 02-03-2025 09:01-0400 SaO2% (BldA) [Mass fraction] 92 % Dr. Fabricio Lemos MD Work Phone: 8(978)828-143380 [place] [address] 02-03-2025 09:01-0400 Systolic blood pressure 134 mm[Hg] Dr. Fabricio Lemos MD Work Phone: 8(370)826-176480 [place] [address] 01-26-2025 13:02-0400 Body mass index (BMI) [Ratio] 24.71 kg/m2 Girish Lemos MD Work Phone: 2(211)576-420849 [place] [address] 01-26-2025 13:02-0400 Body temperature 99.3 [degF] Girish Lemos MD Work Phone: [facility] 01-26-2025 13:02-0400 Body weight 64.05 kg Girish Lemos MD Work Phone: [facility] 01-26-2025 13:02-0400 Diastolic blood pressure 66 mm[Hg] Girish Lemos MD Work Phone: [facility] 01-26-2025 13:02-0400 Heart rate 80 /min Girish Lemos MD Work Phone: [facility] 01-26-2025 13:02-0400 Respiratory rate 16 /min Girish Lemos MD Work Phone: [facility] 01-26-2025 13:02-0400 SaO2% (BldA) [Mass fraction] 95 % Girish Lemos MD Work Phone: [facility] 01-26-2025 13:02-0400 Systolic blood pressure 116 mm[Hg] Girish Lemos MD Work Phone: [facility] 01-13-2025 09:27-0400 Body mass index (BMI) [Ratio] 23.97 kg/m2 Girish Lemos MD Work Phone: [facility] 01-13-2025 09:27-0400 Body weight 62.14 kg Girish Lemos MD Work Phone: [facility] 01-13-2025 09:27-0400 Diastolic blood pressure 60 mm[Hg] Girish Lemos MD Work Phone: [facility] 01-13-2025 09:27-0400 Heart rate 72 /min Girish Lemos MD Work Phone: [facility] 01-13-2025 09:27-0400 Respiratory rate 16 /min Girish Lemos MD Work Phone: [facility] 01-13-2025 09:27-0400 SaO2% (BldA) [Mass fraction] 98 % Girish Lemos MD Work Phone: 0(548)599-695449 [place] [address] 01-13-2025 09:27-0400 Systolic blood pressure 104 mm[Hg] Girish Lemos MD Work Phone: 4(196)847-203949 [place] [address] 01-10-2025 14:35-0400 Body temperature 98.4 [degF] Dr. Fabricio Lemos MD Work Phone: 2(652)704-728280 [place] [address] 01-10-2025 14:35-0400 Diastolic blood pressure 65 mm[Hg] Dr. Fabricio Lemos MD Work Phone: 5(272)692-034980 [place] [address] 01-10-2025 14:35-0400 Heart rate 72 /min Dr. Fabricio Lemos MD Work Phone: 9(214)019-557480 [place] [address] 01-10-2025 14:35-0400 Respiratory rate 14 /min Dr. Fabricio Lemos MD Work Phone: 3(309)201-216280 [place] [address] 01-10-2025 14:35-0400 SaO2% (BldA) [Mass fraction] 94 % Dr. Fabricio Lemos MD Work Phone: 8(869)020-038380 [place] [address] 01-10-2025 14:35-0400 Systolic blood pressure 118 mm[Hg] Dr. Fabricio Lemos MD Work Phone: 1(609)894-394462 [place] [address] 01-10-2025 13:49-0400 Body height 160.[address] Fabricio Lemos MD Work Phone: 8(878)697-933480 [place] [address] 01-10-2025 13:49-0400 Body weight 65.[address] Fabricio Lemos MD Work Phone: 1(319)443-912180 [place] [address] 01-10-2025 08:31-0400 Inhaled oxygen flow rate 2 L/min Dr. Fabricio Lemos MD Work Phone: 9(461)433-520780 [place] [address] 01-10-2025 03:07-0400 Body mass index (BMI) [Ratio] 25.7 kg/m2 Dr. Fabricio Lemos MD Work Phone: 1(043)691-979380 [place] [address] 01-08-2025 14:51-0400 Diastolic blood pressure 74 mm[Hg] Dr. Fabricio Lemos MD Work Phone: 3(651)737-684480 [place] [address] 01-08-2025 14:51-0400 Heart rate 57 /min Dr. Fabricio Lemos MD Work Phone: 3(541)317-279080 [place] [address] 01-08-2025 14:51-0400 Respiratory rate 16 /min Dr. Fabricio Lemos MD Work Phone: 1(686)235-943880 [place] [address] 01-08-2025 14:51-0400 Systolic blood pressure 156 mm[Hg] Dr. Fabricio Lemos MD Work Phone: 7(732)821-089380 [place] [address] 01-08-2025 12:54-0400 Body temperature 97.1 [degF] Dr. Fabricio Lemos MD Work Phone: 1(741)168-561280 [place] [address] 01-08-2025 12:54-0400 SaO2% (BldA) [Mass fraction] 97 % Dr. Fabricio Lemos MD Work Phone: 5(459)704-731680 [place] [address] 01-06-2025 08:55-0400 Body mass index (BMI) [Ratio] 24.4 kg/m2 Dr. Fabricio Lemos MD Work Phone: 3(875)015-485480 [place] [address] 01-06-2025 08:55-0400 Body temperature 97 [degF] Dr. Fabricio Lemos MD Work Phone: 6(374)165-514780 [place] [address] 01-06-2025 08:55-0400 Body weight 62.[address] Fabricio Lemos MD Work Phone: 1(189)601-004880 [place] [address] 01-06-2025 08:55-0400 Diastolic blood pressure 80 mm[Hg] Dr. Fabricio Lemos MD Work Phone: 8(725)546-619380 [place] [address] 01-06-2025 08:55-0400 Heart rate 71 /min Dr. Fabricio Lemos MD Work Phone: 4(667)029-867180 [place] [address] 01-06-2025 08:55-0400 Respiratory rate 16 /min Dr. Fabricio Lemos MD Work Phone: 2(420)150-937080 [place] [address] 01-06-2025 08:55-0400 SaO2% (BldA) [Mass fraction] 95 % Dr. aFbricio Lemos MD Work Phone: 0(229)450-913980 [place] [address] 01-06-2025 08:55-0400 Systolic blood pressure 127 mm[Hg] Dr. Fabricio Lemos MD Work Phone: 0(307)122-432280 [place] [address] 12-29-2024 13:46-0400 Body mass index (BMI) [Ratio] 24.4 kg/m2 Dr. Fabricio Lemos MD Work Phone: 3(185)548-548380 [place] [address] 12-29-2024 13:46-0400 Body temperature 98.2 [degF] Dr. Fabricio Lemos MD Work Phone: 3(603)315-025480 [place] [address] 12-29-2024 13:46-0400 Body weight 62.[address] Fabricio Lemos MD Work Phone: 7(248)602-599680 [place] [address] 12-29-2024 13:46-0400 Diastolic blood pressure 74 mm[Hg] Dr. Fabricio Lemos MD Work Phone: 6(203)427-354980 [place] [address] 12-29-2024 13:46-0400 Heart rate 69 /min Dr. Fabricio Lemos MD Work Phone: 2(763)382-043280 [place] [address] 12-29-2024 13:46-0400 Respiratory rate 16 /min Dr. Fabricio Lemos MD Work Phone: 1(811)087-300080 [place] [address] 12-29-2024 13:46-0400 SaO2% (BldA) [Mass fraction] 93 % Dr. Fabricio Lemos MD Work Phone: 6(358)361-740780 [place] [address] 12-29-2024 13:46-0400 Systolic blood pressure 121 mm[Hg] Dr. Fabricio Lemos MD Work Phone: 0(343)571-255880 [place] [address] 12-16-2024 08:51-0400 Body mass index (BMI) [Ratio] 25.7 kg/m2 Dr. Fabricio Lemos MD Work Phone: 5(580)503-031680 [place] [address] 12-16-2024 08:51-0400 Body temperature 98.4 [degF] Dr. Fabricio Lemos MD Work Phone: 5(916)449-679880 [place] [address] 12-16-2024 08:51-0400 Body weight 65.[address] Fabricio Lemos MD Work Phone: 2(633)380-562980 [place] [address] 12-16-2024 08:51-0400 Diastolic blood pressure 79 mm[Hg] Dr. Fabricio Lemos MD Work Phone: 6(138)295-189780 [place] [address] 12-16-2024 08:51-0400 Heart rate 71 /min Dr. Fabricio Lemos MD Work Phone: 9(275)420-843880 [place] [address] 12-16-2024 08:51-0400 Respiratory rate 14 /min Dr. Fabricio Lemos MD Work Phone: 8(871)249-750480 [place] [address] 12-16-2024 08:51-0400 SaO2% (BldA) [Mass fraction] 93 % Dr. Fabricio Lemos MD Work Phone: 4(536)244-738280 [place] [address] 12-16-2024 08:51-0400 Systolic blood pressure 144 mm[Hg] Dr. Fabricio Lemos MD Work Phone: 6(868)327-077280 [place] [address] 12-12-2024 12:35-0400 Body temperature 98.2 [degF] Dr. Fabricio Lemos MD Work Phone: 3(847)559-445380 [place] [address] 12-12-2024 12:35-0400 Diastolic blood pressure 67 mm[Hg] Dr. Fabricio Lemos MD Work Phone: 1(677)320-178880 [place] [address] 12-12-2024 12:35-0400 Heart rate 80 /min Dr. Fabricio Lemos MD Work Phone: 6(510)885-717680 [place] [address] 12-12-2024 12:35-0400 Inhaled oxygen flow rate 2 L/min Dr. Fabricio Lemos MD Work Phone: 8(943)323-959080 [place] [address] 12-12-2024 12:35-0400 Respiratory rate 18 /min Dr. Fabricio Lemos MD Work Phone: 7(371)742-961780 [place] [address] 12-12-2024 12:35-0400 SaO2% (BldA) [Mass fraction] 95 % Dr. Fabricio Lemos MD Work Phone: 8(761)850-527880 [place] [address] 12-12-2024 12:35-0400 Systolic blood pressure 121 mm[Hg] Dr. Fabricio Lemos MD Work Phone: 4(464)774-102580 [place] [address] 12-12-2024 10:51-0400 Body height 160.[address] Fabricio Lemos MD Work Phone: 0(324)988-496880 [place] [address] 12-12-2024 10:51-0400 Body mass index (BMI) [Ratio] 26.2 kg/m2 Dr. Fabricio Lemos MD Work Phone: 4(639)385-807280 [place] [address] 12-12-2024 10:51-0400 Body weight [address] Fabricio Lemos MD Work Phone: 0(361)798-989280 [place] [address] 12-10-2024 12:46-0400 Body height 160.[address] Fabricio Lemos MD Work Phone: 0(159)275-670980 [place] [address] 12-10-2024 12:46-0400 Body mass index (BMI) [Ratio] 26.7 kg/m2 Dr. Fabricio Lemos MD Work Phone: 1(764)370-641280 [place] [address] 12-10-2024 12:46-0400 Body weight 68.[address] Fabricio Lemos MD Work Phone: 4(798)008-432480 [place] [address] 12-10-2024 12:46-0400 Diastolic blood pressure 71 mm[Hg] Dr. Fabricio Lemos MD Work Phone: 4(922)313-677980 [place] [address] 12-10-2024 12:46-0400 Heart rate 81 /min Dr. Fabricio Lemos MD Work Phone: 1(821)091-266680 [place] [address] 12-10-2024 12:46-0400 Respiratory rate 17 /min Dr. Fabricio Lemos MD Work Phone: 2(195)605-312280 [place] [address] 12-10-2024 12:46-0400 SaO2% (BldA) [Mass fraction] 93 % Dr. Fabricio Lemos MD Work Phone: 1(483)459-331780 [place] [address] 12-10-2024 12:46-0400 Systolic blood pressure 135 mm[Hg] Dr. Fabricio Lemos MD Work Phone: 9(632)501-726780 [place] [address] 12-09-2024 10:45-0400 Body mass index (BMI) [Ratio] 26.7 kg/m2 Dr. Fabricio Lemos MD Work Phone: 8(738)593-771880 [place] [address] 12-09-2024 10:45-0400 Body temperature 97.8 [degF] Dr. Fabricio Lemos MD Work Phone: 0(639)373-528280 [place] [address] 12-09-2024 10:45-0400 Body weight 68.[address] Fabricio Lemos MD Work Phone: 9(141)481-816980 [place] [address] 12-09-2024 10:45-0400 Diastolic blood pressure 73 mm[Hg] Dr. Fabricio Lemos MD Work Phone: 2(475)083-760380 [place] [address] 12-09-2024 10:45-0400 Heart rate 77 /min Dr. Fabricio Lemos MD Work Phone: 2(759)229-709180 [place] [address] 12-09-2024 10:45-0400 Respiratory rate 16 /min Dr. Fabricio Lemos MD Work Phone: 4(641)044-615280 [place] [address] 12-09-2024 10:45-0400 SaO2% (BldA) [Mass fraction] 93 % Dr. Fabricio Lemos MD Work Phone: 8(287)860-107380 [place] [address] 12-09-2024 10:45-0400 Systolic blood pressure 125 mm[Hg] Dr. Fabricio Lemos MD Work Phone: 3(550)577-618580 [place] [address] 12-02-2024 13:20-0400 Body mass index (BMI) [Ratio] 28 kg/m2 Dr. Fabricio Lemos MD Work Phone: 2(951)011-084080 [place] [address] 12-02-2024 13:20-0400 Body temperature 97.8 [degF] Dr. Fabricio Lemos MD Work Phone: 9(184)990-794480 [place] [address] 12-02-2024 13:20-0400 Body weight 71.[address] Fabricio Lemos MD Work Phone: 0(280)809-087780 [place] [address] 12-02-2024 13:20-0400 Diastolic blood pressure 77 mm[Hg] Dr. Fabricio Lemos MD Work Phone: 7(133)354-539880 [place] [address] 12-02-2024 13:20-0400 Heart rate 78 /min Dr. Fabricio Lemos MD Work Phone: 2(995)023-372280 [place] [address] 12-02-2024 13:20-0400 Respiratory rate 16 /min Dr. Fabricio Lemos MD Work Phone: 2(182)191-484480 [place] [address] 12-02-2024 13:20-0400 SaO2% (BldA) [Mass fraction] 94 % Dr. Fabricio Lemos MD Work Phone: 7(741)760-438580 [place] [address] 12-02-2024 13:20-0400 Systolic blood pressure 128 mm[Hg] Dr. Fabricio Lemos MD Work Phone: 7(165)413-753080 [place] [address] 11-28-2024 08:45-0400 Body temperature 96.2 [degF] Dr. Fabricio Lemos MD Work Phone: 6(845)614-815780 [place] [address] 11-28-2024 08:45-0400 Diastolic blood pressure 69 mm[Hg] Dr. Fabricio Lemos MD Work Phone: 3(515)966-115980 [place] [address] 11-28-2024 08:45-0400 Heart rate 82 /min Dr. Fabricio Lemos MD Work Phone: 2(980)519-747580 [place] [address] 11-28-2024 08:45-0400 Respiratory rate 16 /min Dr. Fabricio Lemos MD Work Phone: 8(584)044-726080 [place] [address] 11-28-2024 08:45-0400 SaO2% (BldA) [Mass fraction] 94 % Dr. Fabricio Lemos MD Work Phone: 1(383)133-050980 [place] [address] 11-28-2024 08:45-0400 Systolic blood pressure 120 mm[Hg] Dr. Fabricio Lemos MD Work Phone: 6(440)329-365180 [place] [address] 11-26-2024 08:22-0400 Inhaled oxygen flow rate 2 L/min Dr. Fabricio Lemos MD Work Phone: 2(912)590-240180 [place] [address] 11-26-2024 08:21-0400 Body mass index (BMI) [Ratio] 28.5 kg/m2 Dr. Fabricio Lemos MD Work Phone: 8(808)930-127880 [place] [address] 11-24-2024 16:29-0400 Body weight 70.[address] Fabricio Lemos MD Work Phone: 0(592)836-981980 [place] [address] 11-24-2024 15:32-0400 Body mass index (BMI) [Ratio] 27.5 kg/m2 Dr. Fabricio Lemos MD Work Phone: 1(362)505-255280 [place] [address] 11-24-2024 15:32-0400 Body temperature 97.5 [degF] Dr. Fabricio Lemos MD Work Phone: 3(526)572-156480 [place] [address] 11-24-2024 15:32-0400 Diastolic blood pressure 74 mm[Hg] Dr. Fabricio Lemos MD Work Phone: 3(862)929-178780 [place] [address] 11-24-2024 15:32-0400 Heart rate 86 /min Dr. Fabricio Lemos MD Work Phone: 4(951)385-255680 [place] [address] 11-24-2024 15:32-0400 Respiratory rate 16 /min Dr. Fabricio Lemos MD Work Phone: 6(464)920-568280 [place] [address] 11-24-2024 15:32-0400 SaO2% (BldA) [Mass fraction] 90 % Dr. Fabricio Lemos MD Work Phone: 7(705)987-525980 [place] [address] 11-24-2024 15:32-0400 Systolic blood pressure 126 mm[Hg] Dr. Fabricio Lemos MD Work Phone: 1(945)414-653580 [place] [address] 11-23-2024 17:39-0400 Diastolic blood pressure 73 mm[Hg] Dr. Fabricio Lemos MD Work Phone: 7(684)430-042862 [place] [address] 11-23-2024 17:39-0400 Heart rate 70 /min Dr. Fabricio Lemos MD Work Phone: 1(732)080-863880 [place] [address] 11-23-2024 17:39-0400 Respiratory rate 18 /min Dr. Fabricio Lemos MD Work Phone: 6(543)244-116180 [place] [address] 11-23-2024 17:39-0400 SaO2% (BldA) [Mass fraction] 98 % Dr. Fabricio Lemos MD Work Phone: 7(541)553-841980 [place] [address] 11-23-2024 17:39-0400 Systolic blood pressure 123 mm[Hg] Dr. Fabricio Lemos MD Work Phone: 5(919)473-762980 [place] [address] 11-23-2024 16:25-0400 Body mass index (BMI) [Ratio] 27.6 kg/m2 Dr. Fabricio Lemos MD Work Phone: 2(497)380-308680 [place] [address] 11-23-2024 16:25-0400 Body weight 70.[address] Fabricio Lemos MD Work Phone: 1(533)664-710380 [place] [address] 11-23-2024 15:39-0400 Body height 160.[address] Fabricio Lemos MD Work Phone: 4(648)895-854080 [place] [address] 11-23-2024 15:39-0400 Body temperature 97.5 [degF] Dr. Fabricio Lemos MD Work Phone: 0(241)621-323180 [place] [address] 11-15-2024 12:29-0500 Body temperature 98.8 [degF] Dr. Fabricio Lemos MD Work Phone: 0(569)965-028880 [place] [address] 11-15-2024 12:29-0500 Diastolic blood pressure 78 mm[Hg] Dr. Fabricio Lemos MD Work Phone: 2(510)547-900780 [place] [address] 11-15-2024 12:29-0500 Heart rate 70 /min Dr. Fabricio Lemos MD Work Phone: 1(462)260-654180 [place] [address] 11-15-2024 12:29-0500 Respiratory rate 18 /min Dr. Fabricio Lemos MD Work Phone: [facility] 11-15-2024 12:29-0500 SaO2% (BldA) [Mass fraction] 98 % Dr. Fabricio Lemos MD Work Phone: [facility] 11-15-2024 12:29-0500 Systolic blood pressure 144 mm[Hg] Dr. Fabricio Lemos MD Work Phone: [facility] 11-15-2024 05:07-0500 Body mass index (BMI) [Ratio] 30.2 kg/m2 Dr. Fabricio Lemos MD Work Phone: 9(863)844-200662 [place] [address] 11-15-2024 05:07-0500 Body weight 77.[address] Fabricio Lemos MD Work Phone: 8(334)568-337580 [place] [address] 11-14-2024 14:28-0500 Inhaled oxygen flow rate 2 L/min Dr. Fabricio Lemos MD Work Phone: [facility] 11-12-2024 08:28-0500 Body mass index (BMI) [Ratio] 27.02 kg/m2 Girish Lemos MD Work Phone: [facility] 11-12-2024 08:28-0500 Body temperature 98.29 [degF] Girish Lemos MD Work Phone: [facility] 11-12-2024 08:28-0500 Body weight 70.03 kg Girish Lemos MD Work Phone: [facility] 11-12-2024 08:28-0500 Diastolic blood pressure 64 mm[Hg] Girish Lemos MD Work Phone: [facility] 11-12-2024 08:28-0500 Heart rate 83 /min Girish Lemos MD Work Phone: [facility] 11-12-2024 08:28-0500 Respiratory rate 16 /min Girish Lemos MD Work Phone: [facility] 11-12-2024 08:28-0500 SaO2% (BldA) [Mass fraction] 93 % Girish Lemos MD Work Phone: [facility] 11-12-2024 08:28-0500 Systolic blood pressure 104 mm[Hg] Girish Lemos MD Work Phone: [facility] 11-05-2024 08:48-0500 Body height 161 cm Silas Robbins MD Work Phone: [facility] 11-05-2024 08:48-0500 Body mass index (BMI) [Ratio] 27.74 kg/m2 Silas Robbins MD Work Phone: [facility] 11-05-2024 08:48-0500 Body temperature 98.1 [degF] Silas Robbins MD Work Phone: [facility] 11-05-2024 08:48-0500 Body weight 71.89 kg Silas Robbins MD Work Phone: [facility] 11-05-2024 08:48-0500 Diastolic blood pressure 78 mm[Hg] Silas Robbins MD Work Phone: [facility] 11-05-2024 08:48-0500 Heart rate 69 /min Silas Robbins MD Work Phone: [facility] 11-05-2024 08:48-0500 SaO2% (BldA) [Mass fraction] 95 % Silas Robbins MD Work Phone: [facility] 11-05-2024 08:48-0500 Systolic blood pressure 138 mm[Hg] Silas Robbins MD Work Phone: [facility] 11-03-2024 07:46-0500 Body mass index (BMI) [Ratio] 27.4 kg/m2 Dr. Fabricio Lemos MD Work Phone: [facility] 11-03-2024 07:46-0500 Body temperature 97.3 [degF] Dr. Fabricio Lemos MD Work Phone: [facility] 11-03-2024 07:46-0500 Body weight 72.[address] Fabricio Lemos MD Work Phone: 8(957)[phone] [place] [address] 11-03-2024 07:46-0500 Diastolic blood pressure 72 mm[Hg] Dr. Fabricio Lemos MD Work Phone: 0(720)[phone] [place] [address] 11-03-2024 07:46-0500 Heart rate 69 /min Dr. Fabricio Lemos MD Work Phone: 7(401)[phone] [place] [address] 11-03-2024 07:46-0500 Respiratory rate 18 /min Dr. Fabricio Lemos MD Work Phone: 7(873)[phone] [place] [address] 11-03-2024 07:46-0500 SaO2% (BldA) [Mass fraction] 94 % Dr. Fabricio Lemos MD Work Phone: 3([phone])[phone] [place] [address] 11-03-2024 07:46-0500 Systolic blood pressure 118 mm[Hg] Dr. Fabricio Lemos MD Work Phone: 3(912)[phone] [place] [address] 10-17-2024 12:52-0500 Body height 160 cm Girish Lemos MD Work Phone: 3(259)[phone] [place] [address] 10-17-2024 12:52-0500 Body mass index (BMI) [Ratio] 28.7 kg/m2 Girish Lemos MD Work Phone: [phone] [place] [address] 10-17-2024 12:52-0500 Body temperature 97.81 [degF] Girish Lemos MD Work Phone: [phone] [place] [address] 10-17-2024 12:52-0500 Body weight 73.48 kg Girish Lemos MD Work Phone: [phone] [place] [address] 10-17-2024 12:52-0500 Diastolic blood pressure 70 mm[Hg] Girish Lemos MD Work Phone: [facility] 10-17-2024 12:52-0500 Heart rate 67 /min Girish Lemos MD Work Phone: [facility] 10-17-2024 12:52-0500 Respiratory rate 12 /min Girish Lemos MD Work Phone: [facility] 10-17-2024 12:52-0500 SaO2% (BldA) [Mass fraction] 94 % Girish Lemos MD Work Phone: [facility] 10-17-2024 12:52-0500 Systolic blood pressure 118 mm[Hg] Girish Lemos MD Work Phone: [facility] 10-16-2024 08:22-0500 Body mass index (BMI) [Ratio] 28.87 kg/m2 Oleg Fields 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 Work Phone: [facility] 10-16-2024 08:22-0500 Body weight 73.94 kg Oleg Fields 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 Work Phone: [facility] 10-16-2024 08:22-0500 Diastolic blood pressure 80 mm[Hg] Oleg Fields 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 Work Phone: [facility] 10-16-2024 08:22-0500 Heart rate 74 /min Oleg Fields 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 Work Phone: [facility] 10-16-2024 08:22-0500 Respiratory rate 14 /min 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 Work Phone: [facility] 10-16-2024 08:22-0500 Systolic blood pressure 144 mm[Hg] Oleg Fields 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 Work Phone: [facility] 09-19-2024 09:38-0500 Body mass index (BMI) [Ratio] 29.26 kg/m2 Girish Lemos MD Work Phone: [facility] 09-19-2024 09:38-0500 Body weight 74.93 kg Girish Lemos MD Work Phone: [facility] 09-19-2024 09:38-0500 Diastolic blood pressure 68 mm[Hg] Girish Lemos MD Work Phone: [facility] 09-19-2024 09:38-0500 Heart rate 73 /min Girish Lemos MD Work Phone: [facility] 09-19-2024 09:38-0500 Respiratory rate 18 /min Girish Lemos MD Work Phone: [facility] 09-19-2024 09:38-0500 SaO2% (BldA) [Mass fraction] 98 % Girish Lemos MD Work Phone: [facility] 09-19-2024 09:38-0500 Systolic blood pressure 124 mm[Hg] Girish Lemos MD Work Phone: [facility] 08-19-2024 10:40-0500 Diastolic blood pressure 82 mm[Hg] Jeanette Podlogar 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 Work Phone: [facility] Comment on above: ROSAL[facility] BP 08-19-2024 10:40-0500 Systolic blood pressure 164 mm[Hg] Jeanette Podlogar 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 Work Phone: [facility] Comment on above: [facility] BP 08-19-2024 10:16-0500 Body mass index (BMI) [Ratio] 30.15 kg/m2 Jeanette Podlogar 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 Work Phone: [facility] 08-19-2024 10:16-0500 Body weight 77.2 kg Jeanette Podlogar 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 Work Phone: [facility] 08-19-2024 10:16-0500 Heart rate 58 /min Jeanette Podlogar 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 Work Phone: [facility] 08-19-2024 10:16-0500 Respiratory rate 18 /min Jeanette Podlogar 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 Work Phone: [facility] 08-19-2024 10:16-0500 SaO2% (BldA) [Mass fraction] 98 % Jeanette Podlogar 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 Work Phone: [facility] 07-15-2024 10:22-0400 Diastolic blood pressure 80 mm[Hg] Jeanette Podlogar 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 Work Phone: [facility] Comment on above: ROSALVA BP 07-15-2024 10:22-0400 Heart rate 50 /min Jeanette Podlogar 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 Work Phone: [facility] 07-15-2024 10:22-0400 Systolic blood pressure 157 mm[Hg] Jeanette Podlogar 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 Work Phone: [facility] Comment on above: ROSAL[facility] BP 07-15-2024 08:53-0400 Body mass index (BMI) [Ratio] 31.01 kg/m2 Jeanette Podlogar 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 Work Phone: [facility] 07-15-2024 08:53-0400 Body weight 79.4 kg Jeanette Podlogar 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 Work Phone: [facility] 07-15-2024 08:53-0400 Respiratory rate 18 /min Jeanette Podlogar 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 Work Phone: [facility] 07-15-2024 08:53-0400 SaO2% (BldA) [Mass fraction] 97 % Jeanette Podlogar 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 Work Phone: [facility] 01-08-2024 09:14-0400 Body mass index (BMI) [Ratio] 31.74 kg/m2 Jeanette Podlogar 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 Work Phone: [facility] 01-08-2024 09:14-0400 Body weight 81.28 kg Jeanette Podlogar 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 Work Phone: [facility] 01-08-2024 09:14-0400 Diastolic blood pressure 84 mm[Hg] Jeanette Podlogar 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 Work Phone: [facility] 01-08-2024 09:14-0400 Heart rate 55 /min Jeanette Podlogar 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 Work Phone: [facility] 01-08-2024 09:14-0400 Respiratory rate 18 /min Jeanette Podlogar 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 Work Phone: [facility] 01-08-2024 09:14-0400 SaO2% (BldA) [Mass fraction] 96 % Jeanette Podlogar 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 Work Phone: [facility] 01-08-2024 09:14-0400 Systolic blood pressure 136 mm[Hg] Jeanette Podlogar 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 Work Phone: [facility] 06-22-2023 08:55-0400 Body weight 80.47 kg Jeanette Podlogar 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 Work Phone: [facility] 06-22-2023 08:55-0400 Diastolic blood pressure 80 mm[Hg] Jeanette Podlogar 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 Work Phone: [facility] 06-22-2023 08:55-0400 Heart rate 60 /min Jeanette Podlogar 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 Work Phone: [facility] 06-22-2023 08:55-0400 Respiratory rate 16 /min Jeanette Podlogar 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 Work Phone: [facility] 06-22-2023 08:55-0400 SaO2% (BldA) [Mass fraction] 94 % Jeanette Podlogar 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 Work Phone: [facility] 06-22-2023 08:55-0400 Systolic blood pressure 132 mm[Hg] Jeanette Podlogar 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 Work Phone: [facility] 05-03-2023 08:18-0400 Body height 160.[address] Fabricio Lemos Work Phone: [facility] 05-03-2023 08:18-0400 Body weight 80.[address] Fabricio Lemos Work Phone: [facility] 05-03-2023 08:18-0400 Heart rate 67 /min Dr. Fabricio Lemos Work Phone: [facility] 05-03-2023 08:18-0400 SaO2% (BldA) [Mass fraction] 98 % Dr. Fabricio Lemos Work Phone: [facility] 03-21-2023 09:09-0400 Body weight 83.64 kg Jeanette Podlogar 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 Work Phone: [facility] 03-21-2023 09:09-0400 Diastolic blood pressure 82 mm[Hg] Jeanette Podlogar 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 Work Phone: [facility] 03-21-2023 09:09-0400 Heart rate 58 /min Jeanette Podlogar 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 Work Phone: [facility] 03-21-2023 09:09-0400 Respiratory rate 16 /min Jeanette Podlogar 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 Work Phone: [facility] 03-21-2023 09:09-0400 SaO2% (BldA) [Mass fraction] 96 % Jeanette Podlogar 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 Work Phone: [facility] 03-21-2023 09:09-0400 Systolic blood pressure 140 mm[Hg] Jeanette Podlogar 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 Work Phone: [facility] 03-13-2023 05:49-0400 Body mass index (BMI) [Ratio] 32.2 kg/m2 Dr. Fabricio Lemos Work Phone: [facility] 03-13-2023 05:49-0400 Body temperature 98.1 [degF] Dr. Fabricio Lemos Work Phone: [facility] 03-13-2023 05:49-0400 Body weight 82.[address] Fabricio Lemos Work Phone: [facility] 03-13-2023 05:49-0400 Diastolic blood pressure 85 mm[Hg] Dr. Fabricio Lemos Work Phone: [facility] 03-13-2023 05:49-0400 Heart rate 66 /min Dr. Fabricio Lemos Work Phone: [facility] 03-13-2023 05:49-0400 Respiratory rate 18 /min Dr. Fabricio Lemos Work Phone: [facility] 03-13-2023 05:49-0400 SaO2% (BldA) [Mass fraction] 93 % Dr. Fabricio Lemos Work Phone: [facility] 03-13-2023 05:49-0400 Systolic blood pressure 160 mm[Hg] Dr. Fabricio Lemos Work Phone: [facility] 02-20-2023 08:40-0400 Body weight 83.64 kg Jeanette Podlogar 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 Work Phone: [facility] 02-20-2023 08:40-0400 Diastolic blood pressure 78 mm[Hg] Jeanette Podlogar 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 Work Phone: [facility] 02-20-2023 08:40-0400 Heart rate 48 /min Jeanette Podlogar 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 Work Phone: [facility] 02-20-2023 08:40-0400 Respiratory rate 18 /min Jeanette Podlogar 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 Work Phone: [facility] 02-20-2023 08:40-0400 SaO2% (BldA) [Mass fraction] 95 % Jeanette Podlogar 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 Work Phone: [facility] 02-20-2023 08:40-0400 Systolic blood pressure 148 mm[Hg] Jeanette Podlogar 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 Work Phone: [facility] 09-25-2022 07:58-0500 Body height 160.[address] Fabricio Lemos Work Phone: [facility] 09-25-2022 07:58-0500 Body mass index (BMI) [Ratio] 32.8 kg/m2 Dr. Fabricio Lemos Work Phone: [facility] 09-25-2022 07:58-0500 Body temperature 97.3 [degF] Dr. Fabricio Lemos Work Phone: [facility] 09-25-2022 07:58-0500 Body weight 83.[address] Fabricio Lemos Work Phone: [facility] 09-25-2022 07:58-0500 Diastolic blood pressure 79 mm[Hg] Dr. Fabricio Lemos Work Phone: [facility] 09-25-2022 07:58-0500 Heart rate 49 /min Dr. Fabricio Lemso Work Phone: [facility] 09-25-2022 07:58-0500 Respiratory rate 18 /min Dr. Fabricio Lemos Work Phone: [facility] 09-25-2022 07:58-0500 SaO2% (BldA) [Mass fraction] 94 % Dr. Fabricio Lemos Work Phone: [facility] 09-25-2022 07:58-0500 Systolic blood pressure 181 mm[Hg] Dr. Fabricio Lemos Work Phone: [facility] 09-19-2022 09:11-0500 Diastolic blood pressure 70 mm[Hg] Girish Lemos MD Work Phone: [facility] 09-19-2022 09:11-0500 Heart rate 56 /min Girish Lemos MD Work Phone: [facility] 09-19-2022 09:11-0500 Respiratory rate 16 /min Girish Lemos MD Work Phone: [facility] 09-19-2022 09:11-0500 SaO2% (BldA) [Mass fraction] 96 % Girish Lemos MD Work Phone: [facility] 09-19-2022 09:11-0500 Systolic blood pressure 122 mm[Hg] Girish Lemos MD Work Phone: [facility] 09-13-2022 10:00-0500 Diastolic blood pressure 75 mm[Hg] Dr. Fabricio Lemos Work Phone: [facility] Work Phone: 09-13-2022 10:00-0500 Heart rate 58 /min Dr. Fabricio Lemos Work Phone: [facility] Work Phone: 09-13-2022 10:00-0500 Respiratory rate 12 /min Dr. Fabricio Lemos Work Phone: [facility] Work Phone: 09-13-2022 10:00-0500 SaO2% (BldA) [Mass fraction] 94 % Dr. Fabricio Lemos Work Phone: [facility] Work Phone: 09-13-2022 10:00-0500 Systolic blood pressure 118 mm[Hg] Dr. Fabricio Lemos Work Phone: [facility] Work Phone: 09-13-2022 08:00-0500 Body temperature 97.9 [degF] Dr. Fabricio Lemos Work Phone: [facility] Work Phone: 09-13-2022 06:47-0500 Body height 160.[address] Fabricio Lemos Work Phone: [facility] Work Phone: 09-13-2022 06:47-0500 Body mass index (BMI) [Ratio] 32.2 kg/m2 Dr. Fabricio Lemos Work Phone: [facility] Work Phone: 09-13-2022 06:47-0500 Body weight 82.[address] Fabricio Lemos Work Phone: [facility] Work Phone: 09-04-2022 12:45-0500 Body mass index (BMI) [Ratio] 32.5 kg/m2 Dr. Fabricio Lemos Work Phone: [facility] Work Phone: 09-04-2022 12:45-0500 Body temperature 100.4 [degF] Dr. Fabricio Lemos Work Phone: [facility] Work Phone: 09-04-2022 12:45-0500 Body weight 86.[address] Fabricio Lemos Work Phone: [facility] Work Phone: 09-04-2022 12:45-0500 Diastolic blood pressure 81 mm[Hg] Dr. Fabricio Lemos Work Phone: [facility] Work Phone: 09-04-2022 12:45-0500 Heart rate 75 /min Dr. Fabricio Lemos Work Phone: [facility] Work Phone: 09-04-2022 12:45-0500 Respiratory rate 18 /min Dr. Fabricio Lemos Work Phone: [facility] Work Phone: 09-04-2022 12:45-0500 SaO2% (BldA) [Mass fraction] 94 % Dr. Fabricio Lemos Work Phone: [facility] Work Phone: 09-04-2022 12:45-0500 Systolic blood pressure 130 mm[Hg] Dr. Fabricio Lemos Work Phone: [facility] Work Phone: 08-22-2022 09:44-0500 Body height 160 cm Jeanette Podlogar 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 Work Phone: [facility] 08-22-2022 09:44-0500 Body weight 82.56 kg Jeanette Podlogar 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 Work Phone: [facility] 08-22-2022 09:44-0500 Diastolic blood pressure 78 mm[Hg] Jeanette Podlogar 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 Work Phone: [facility] 08-22-2022 09:44-0500 Heart rate 58 /min Jeanette Podlogar 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 Work Phone: [facility] 08-22-2022 09:44-0500 SaO2% (BldA) [Mass fraction] 95 % Jeanette Podlogar 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 Work Phone: [facility] 08-22-2022 09:44-0500 Systolic blood pressure 138 mm[Hg] Jeanette Podlogar 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 Work Phone: [facility] 07-24-2022 17:34-0500 Body temperature 97.7 [degF] Jamaica Kira 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 Work Phone: [facility] 07-24-2022 17:34-0500 Body weight 85.28 kg Jamaica Kira 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 Work Phone: [facility] 07-24-2022 17:34-0500 Diastolic blood pressure 68 mm[Hg] Jamaica Kira 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 Work Phone: [facility] 07-24-2022 17:34-0500 Heart rate 70 /min Jamaica Kira 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 Work Phone: [facility] 07-24-2022 17:34-0500 Respiratory rate 16 /min Jamaica Kira 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 Work Phone: [facility] 07-24-2022 17:34-0500 SaO2% (BldA) [Mass fraction] 97 % Jamaica Kira 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 Work Phone: [facility] 07-24-2022 17:34-0500 Systolic blood pressure 110 mm[Hg] Jamaica Kira 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 Work Phone: [facility] 03-23-2022 10:50-0400 Body temperature 98.71 [degF] Girish Lemos MD Work Phone: [facility] 03-23-2022 10:50-0400 Body weight 83.83 kg Girish Lemos MD Work Phone: [facility] 03-23-2022 10:50-0400 Diastolic blood pressure 84 mm[Hg] Girish Lemos MD Work Phone: [facility] 03-23-2022 10:50-0400 Heart rate 69 /min Girish Lemos MD Work Phone: [facility] 03-23-2022 10:50-0400 Respiratory rate 18 /min Girish Lemos MD Work Phone: [facility] 03-23-2022 10:50-0400 SaO2% (BldA) [Mass fraction] 95 % Girish Lemos MD Work Phone: [facility] 03-23-2022 10:50-0400 Systolic blood pressure 122 mm[Hg] Girish Lemos MD Work Phone: [facility] 01-05-2022 13:12-0400 Body height 162.[address] Fabricio Lemos Work Phone: [facility] Work Phone: 01-05-2022 13:12-0400 Body mass index (BMI) [Ratio] 33 kg/m2 Dr. Fabricio Lemos Work Phone: [facility] Work Phone: 01-05-2022 13:12-0400 Body temperature 97.2 [degF] Dr. Fabricio Lemos Work Phone: [facility] Work Phone: 01-05-2022 13:12-0400 Body weight 87.[address] Fabricio Lemos Work Phone: [facility] Work Phone: 01-05-2022 13:12-0400 Diastolic blood pressure 82 mm[Hg] Dr. Fabricio Lemos Work Phone: [facility] Work Phone: 01-05-2022 13:12-0400 Heart rate 64 /min Dr. Fabricio Lemos Work Phone: [facility] Work Phone: 01-05-2022 13:12-0400 Respiratory rate 16 /min Dr. Fabricio Lemos Work Phone: [facility] Work Phone: 01-05-2022 13:12-0400 SaO2% (BldA) [Mass fraction] 96 % Dr. Fabricio Lemos Work Phone: [facility] Work Phone: 01-05-2022 13:12-0400 Systolic blood pressure 131 mm[Hg] Dr. Fabricio Lemos Work Phone: [facility] Work Phone: 11-17-2021 12:35-0500 Diastolic blood pressure 78 mm[Hg] Dr. Fabricio Lemos Work Phone: [facility] Work Phone: 11-17-2021 12:35-0500 Heart rate 73 /min Dr. Fabricio Lemos Work Phone: [facility] Work Phone: 11-17-2021 12:35-0500 Respiratory rate 18 /min Dr. Fabricio Lemos Work Phone: [facility] Work Phone: 11-17-2021 12:35-0500 SaO2% (BldA) [Mass fraction] 94 % Dr. Fabricio Lemos Work Phone: [facility] Work Phone: 11-17-2021 12:35-0500 Systolic blood pressure 138 mm[Hg] Dr. Fabricio Lemos Work Phone: [facility] Work Phone: 11-17-2021 09:18-0500 Body mass index (BMI) [Ratio] 31.8 kg/m2 Dr. Fabricio Lemos Work Phone: [facility] Work Phone: 11-17-2021 09:18-0500 Body temperature 96.9 [degF] Dr. Fabricio Lemos Work Phone: [facility] Work Phone: 11-17-2021 09:18-0500 Body weight 81.[address] Fabricio Lemos Work Phone: [facility] Work Phone: 11-12-2021 19:00-0500 Diastolic blood pressure 77 mm[Hg] Dr. Fabricio Lemos Work Phone: [facility] Work Phone: 11-12-2021 19:00-0500 Heart rate 76 /min Dr. Fabricio Lemos Work Phone: [facility] Work Phone: 11-12-2021 19:00-0500 Respiratory rate 18 /min Dr. Fabricio Lemos Work Phone: [facility] Work Phone: 11-12-2021 19:00-0500 SaO2% (BldA) [Mass fraction] 93 % Dr. Fabricio Lemos Work Phone: [facility] Work Phone: 11-12-2021 19:00-0500 Systolic blood pressure 144 mm[Hg] Dr. Fabricio Lemos Work Phone: [facility] Work Phone: 11-12-2021 16:39-0500 Body mass index (BMI) [Ratio] 32.8 kg/m2 Dr. Fabricio Lemos Work Phone: [facility] Work Phone: 11-12-2021 16:39-0500 Body temperature 99.9 [degF] Dr. Fabricio Lemos Work Phone: [facility] Work Phone: 11-12-2021 16:39-0500 Body weight 83.[address] Fabricio Lemos Work Phone: [facility] Work Phone: Encounters Encounter Date Encounter Type Care Provider Facility Start: 04-15-2025 End: 04-15-2025 Refill Girish Lemos MD Work Phone: [facility] Comment on above: Refill Request Start: 04-13-2025 End: 04-13-[address] Reg Layne DO -[facility] Work Phone: Start: 04-13-2025 End: 04-13-[address] Fabricio Lemos MD Work Phone: -[facility] Start: 04-13-2025 ambulatory Fabricio Lemos [facility] Start: 04-06-2025 End: 04-06-[address] Fabricio Lemos MD Work Phone: -[facility] Start: 04-06-2025 End: 04-06-2025 Patient encounter procedure Sharda Audie 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-C -[facility] Work Phone: Start: 04-06-2025 End: 04-06-2025 Patient encounter procedure Sharda Audie 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-C -[facility] Work Phone: Start: 04-06-2025 End: 04-06-[address] Fabricio Lemos MD Work Phone: -[facility] Start: 04-06-[address] Rubi Fernandez MD -[facility] Start: 04-06-2025 End: 04-06-2025 ambulatory Fabricio Lemos Facility:[facility] Start: 04-05-2025 End: 04-05-2025 Emergency department patient visit Dr. Fabricio Lemos MD Work Phone: -Emergency Department Work Phone: Start: 03-31-2025 End: 03-31-2025 Refill Girish Lemos MD Work Phone: [facility] Comment on above: Refill Request Start: 07-03-[address] Rubi Fernandez MD -[facility] Start: 03-16-[address] Rubi Fernandez MD -[facility] Start: 03-16-2025 End: 03-16-[address] Sherice Fernandez MD -[facility] Work Phone: Start: 03-16-2025 End: 03-16-[address] Fabricio Lemos MD Work Phone: [facility] Start: 02-24-2025 End: 02-24-[address] Fabricio Lemos MD Work Phone: [facility] Work Phone: Start: 02-24-2025 End: 02-24-[address] Sherice Fernandez MD -[facility] Work Phone: Start: 02-24-2025 End: 02-24-2025 Dr. Sherice Fernandez MD -[facility] Work Phone: Start: 02-17-2025 End: 02-17-[address] Fabricio Lemos MD Work Phone: [facility] Work Phone: Start: 02-17-2025 End: 02-17-[address] Sherice Fernandez MD -Cat Scan [facility] Work Phone: Start: 02-17-2025 End: 02-17-2025 Dr. Sherice Fernandez MD -Cat Scan [facility] Work Phone: Start: 02-16-2025 End: 02-16-2025 Admission to same day surgery center Dr. Az Hoffmann MD -[facility] Start: 02-16-2025 End: 02-16-2025 Dr. Az Hoffmann MD -[facility] Start: 02-16-2025 End: 02-17-[address] Fabricio Lemos MD Work Phone: [facility] Work Phone: Start: 02-11-2025 End: 02-11-2025 Refill Girish Lemos MD Work Phone: [facility] Comment on above: Refill Request Start: 02-06-2025 Dr. Sherice hernandez MD -[facility] Start: 02-03-[address] Rubi Fernandez MD -[facility] Start: 02-03-2025 End: 02-03-[address] Sherice Fernandez MD -[facility] Work Phone: Start: 02-03-2025 End: 02-03-2025 Dr. Sherice Fernandez MD -[facility] Work Phone: Start: 02-03-2025 End: 02-03-[address] Fabricio Lemos MD Work Phone: [facility] Work Phone: Start: 01-27-2025 End: 01-27-2025 Follow-up encounter Girish Lemos MD Work Phone: [facility] Start: 01-26-2025 End: 01-26-2025 Follow-up encounter Girish Lemos MD Work Phone: [facility] Comment on above: Results (Chest Xray) Start: 01-26-2025 End: 01-26-2025 Subsequent hospital visit by physician Xr [facility] Work Phone: Radiology Comment on above: Viral URI with cough [J06.9] Start: 01-26-2025 End: 01-26-2025 Patient encounter procedure Girish Lemos MD Work Phone: [facility] [facility] Comment on above: Viral URI with cough (Primary Dx); Immunocompromised state (HCC) Start: 01-26-2025 End: 01-26-2025 ambulatory SILAS ROBBINS Facility:[facility] Start: 01-13-2025 End: 01-13-2025 Patient encounter procedure Girish Lemos MD Work Phone: [facility] Comment on above: Chest pain, unspecif ied type (Primary Dx); Small cell carcinoma of lung, unspecified laterality, unspecified part of lung (HCC); 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 Jassi Borden MD -[facility] Work Phone: Start: 01-10-2025 Dr. Jassi Borden MD -[facility] Work Phone: Start: 01-10-2025 ambulatory Fabricio Lemos Faci lity:[facility] Start: 01-10-2025 Non-patient / Non-visit Dr. Santi valdez MD -[facility] Start: 01-10-2025 Dr. Santi Hurd MD -[facility] Start: 01-09-2025 End: 01-09-2025 Non-patient / Non-visit Dr. Man Polo MD -[facility] Work Phone: Start: 01-09-2025 End: 01-10-2025 ambulatory Fabricio Lemos Facility:[facility] Start: 01-09-2025 End: 01-10-2025 Evaluation and management of inpatient Dr. Jassi Borden MD -Progressive Care Unit Work Phone: Start: 01-09-2025 End: 01-10-[address] Fabricio Lemos MD Work Phone: [facility] Work Phone: Start: 01-09-2025 End: 01-10-2025 Dr. Jassi Borden MD -Progressive Care Unit Work Phone: Start: 01-09-[address] Rubi Fernandez MD -[facility] Start: 01-06-2025 End: 01-06-[address] Sherice Fernandez MD -[facility] Work Phone: Start: 01-06-2025 End: 01-06-2025 Dr. Sherice Fernandez MD -[facility] Work Phone: Start: 01-06-2025 End: 01-06-2025 ambulatory Sehrice Fernandez Facility:[facility] Start: 12-29-2024 End: 12-29-2024 Patient encounter procedure Sharda Audie 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-C -[facility] Work Phone: Start: 12-29-2024 End: 12-29-2024 Sharda Audie 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-C -[facility] Work Phone: Start: 12-29-2024 End: 12-29-2024 ambulatory Fabricio Lemos Facility:[facility] Start: 12-22-2024 End: 12-22-2024 Patient encounter procedure Rachael Mattson PA-C -[facility] Work Phone: Start: 12-22-2024 End: 12-22-2024 Rachael Mattson PA-C -[facility] Work Phone: Start: 12-22-2024 End: 12-22-2024 ambulatory Fabricio Lemos Facility:[facility] Start: 12-16-2024 End: 12-16-2024 Patient encounter procedure Sharda Audie 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-C -[facility] Work Phone: Start: 12-16-2024 End: 12-16-2024 Sharda Bronson 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-C -[facility] Work Phone: Start: 12-16-2024 End: 12-16-2024 ambulatory Fabricio Lemos Facility:[facility] Start: 12-15-2024 End: 12-15-2024 Refill Girish Lemos MD Work Phone: [facility] Comment on above: Encounter not needed Refill Request Start: 12-12-2024 ambulatory Fabricio Lemos Faci lity:[facility] Start: 12-12-2024 Non-patient / Non-visit Dr. Stefan Sorto MD -[facility] Start: 12-12-2024 Dr. Yeimi ramos MD -[facility] Start: 12-12-2024 End: 12-12-2024 Admission to same day surgery center Dr. Yeimi Sorto MD -[facility] Start: 12-12-2024 End: 12-12-2024 Dr. Yeimi Sorto MD -[facility] Start: 12-12-2024 End: 12-12-[address] Fabricio Lemos MD Work Phone: [facility] Work Phone: Start: 12-10-2024 End: 12-10-[address] Yeimi Sorto MD -[facility] Work Phone: Start: 12-10-2024 End: 12-10-2024 Dr. Yeimi Sorto MD -[facility] Work Phone: Start: 12-10-2024 End: 12-10-2024 ambulatory [facility] Facility:[facility] Start: 12-09-[address] Rubi Fernandez MD -[facility] Start: 12-09-2024 End: 12-09-2024 Patient encounter procedure Shardajany Bronson 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- -[facility] Work Phone: Start: 12-09-2024 End: 12-09-2024 Sharda Audie 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-C -[facility] Work Phone: Start: 12-09-2024 End: 12-09-2024 ambulatory [facility] Facility:[facility] Start: 12-03-2024 End: 12-03-[address] Fabricio Lemos MD Work Phone: [facility] Work Phone: Start: 12-03-2024 End: 12-03-[address] Sherice Fernandez MD -[facility] Work Phone: Start: 12-03-2024 End: 12-03-2024 Dr. Sherice Fernandez MD -[facility] Work Phone: Start: 12-02-2024 End: 12-02-2024 Patient encounter procedure Sharda Audie [facility] Work Phone: Start: 12-02-2024 End: 12-02-2024 Sharda Audie 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-[facility] Work Phone: Start: 12-02-2024 End: 12-03-2024 ambulatory [facility] Facility:[facility] Start: 11-24-2024 End: 11-24-[address] Sherice Fernandez MD -[facility] Work Phone: Start: 11-24-2024 End: 11-24-2024 Dr. Sherice Fernandez MD -[facility] Work Phone: Start: 11-24-2024 End: 11-24-2024 ambulatory [facility] Facility:[facility] Start: 11-23-2024 End: 11-23-2024 Dr. [facility] Work Phone: Start: 11-23-2024 End: 11-23-2024 Emergency department patient visit Dr. Fabricio Lemos MD Work Phone: -Emergency Department Work Phone: Start: 11-15-2024 Non-patient / Non-visit [facility] Work Phone: Start: 11-15-2024 Dr. Mae Horton DO [facility] Work Phone: Start: 11-14-2024 Non-patient / Non-visit [facility]. [facility] Work Phone: Start: 11-14-2024 Dr. Mae Horton DO [facility] Work Phone: Start: 11-13-2024 Non-patient / Non-visit Dr. Mae Horton DO [facility] Work Phone: Start: 11-13-2024 Dr. Mae Newton [facility] Work Phone: Start: 11-12-2024 Non-patient / Non-visit Dr. Mae Horton DO [facility] Work Phone: Start: 11-12-2024 End: 11-15-2024 ambulatory [facility] Facility:[facility] Start: 11-12-2024 End: 11-15-2024 Evaluation and management of inpatient Dr. Mae Horton DO [facility] Work Phone: Start: 11-12-2024 End: 11-15-2024 Dr. Mae Horton DO [facility] Work Phone: Start: 11-12-2024 End: 11-12-2024 ambulatory TOÑA Catalina LEMOS Facility:[facility] Start: 11-12-2024 End: 11-12-2024 Patient encounter procedure Girish Lemos MD Work Phone: [facility] Comment on above: Generalized abdomina l pain (Primary Dx); Weight loss; Liver masses; Lung mass; Abnormal MRI, liver; Nausea and vomiting, unspecified vomiting type; Diarrhea, unspecified type; Dehydration; BRBPR (bright red blood per rectum) Start: 11-11-2024 End: 11-11-2024 Patient encounter procedure Roxann Gomez NP-C -[facility] Start: 11-11-2024 End: 11-11-2024 Roxann Gomez NP-[place] -[facility] Start: 11-11-2024 End: 11-11-2024 ambulatory [facility] Facility:[facility] Start: 11-05-2024 End: 11-13-2024 Telephone encounter Silas Robbins MD Work Phone: Hematology/Oncology Start: 11-05-2024 End: 11-05-2024 ambulatory Silas Robbins MD Work Phone: Hematology/Oncology Comment on above: Liver masses Start: 11-05-2024 End: 11-05-2024 Patient encounter procedure Silas Robbins MD Work Phone: Hematology/Oncology Start: 11-04-2024 End: 11-12-2024 Telephone encounter Girish Lemos MD Work Phone: [facility] Comment on above: Return Call Request Start: 11-03-2024 End: 11-03-2024 Telephone encounter Silas Robbins MD Work Phone: Hematology/Oncology Start: 11-03-2024 End: 11-03-2024 Patient encounter procedure Roxann Gomez 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-C -[facility] Work Phone: Start: 11-03-2024 End: 11-03-2024 Roxann Gomez 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-C -[facility] Work Phone: Start: 11-03-2024 End: 11-03-2024 ambulatory Fabricio Lemos Facility:[facility] Start: 10-31-2024 End: 11-03-2024 Telephone encounter Girish Lemos MD Work Phone: [facility] Comment on above: requesting disk Start: 10-30-2024 End: 12-30-2024 Follow-up encounter Girish Lemos MD Work Phone: Family [facility] Comment on above: Results Start: 10-30-2024 End: 10-30-2024 Telephone encounter Girish Lemos MD Work Phone: Family [facility] Comment on above: Patient Request Start: 10-30-2024 End: 10-30-2024 ambulatory GIRISH LEMOS Facility:[facility] Start: 10-30-2024 End: 10-30-2024 Subsequent hospital visit by physician [facility] (I-Stat) Work Phone: Cat Scan Comment on above: Liver masses [R16.0] Start: 10-22-2024 End: 10-22-2024 Telephone encounter Girish Lemos MD Work Phone: [facility] Comment on above: Orders Start: 10-20-2024 End: 10-31-2024 Telephone encounter Girish Lemos MD Work Phone: Family [facility] [place] Comment on above: Results New Patient Start: 10-17-2024 End: 10-20-2024 Telephone encounter Lennox Bellamy SPOOL WORKER Navigation Start: 10-17-2024 End: 10-17-2024 ambulatory GIRISH LEMOS Facility:[facility] Start: 10-17-2024 End: 10-17-2024 Patient encounter procedure Girish Lemos MD Work Phone: [facility] Comment on above: Liver masses (Primar y Dx); RUQ abdominal pain; Nausea and vomiting, unspecified vomiting type; Diarrhea, unspecified type Start: 10-16-2024 End: 10-20-2024 Telephone encounter Oleg Fields APRN.CNP Work Phone: [facility] Comment on above: Results Start: 10-16-2024 End: 10-16-2024 ambulatory GIRISH LEMOS Facility:[facility] Start: 10-16-2024 End: 10-16-2024 Subsequent hospital visit by physician Maxine [facility] (I-Stat) Work Phone: Cat Scan Comment on above: Generalized abdomina l pain [R10.84] Start: 10-16-2024 End: 10-16-2024 Office outpatient visit 15 minutes 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 Work Phone: [facility] Comment on above: Generalized abdomina l pain (Primary Dx); Diarrhea, unspecified type; Nausea Start: 10-16-2024 End: 10-16-2024 ambulatory GIRISH LEMOS Facility:[facility] Start: 10-15-2024 End: 10-15-2024 ambulatory Girish Lemos MD Work Phone: [facility] Comment on above: Abdominal Pain Start: 09-19-2024 End: 09-19-2024 Patient encounter procedure Girish Lemos MD Work Phone: [facility] Comment on above: Primary hypertension (Primary Dx) Start: 09-19-2024 End: 09-19-2024 ambulatory GIRISH LEMOS Facility:[facility] Start: 08-27-2024 End: 08-27-2024 Telephone encounter Girish Lemos MD Work Phone: [facility] Comment on above: Patient Update Start: 08-19-2024 End: 08-19-2024 Patient encounter procedure Jeanette Podlogar 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 Work Phone: [facility] Comment on above: Essential hypertensi on Start: 08-19-2024 End: 08-19-2024 ambulatory JEANETTE PODLOGAR Facility:[facility] Start: 07-15-2024 End: 07-15-2024 ambulatory JEANETTE PODLOGAR Facility:[facility] Start: 07-15-2024 End: 07-15-2024 Patient encounter procedure Jeanette Podlogar 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 Work Phone: [facility] Comment on above: Essential hypertensi on (Primary Dx); Non-seasonal allergic rhinitis, unspecified trigger; Encounter for immunization; Hyperlipidemia, unspecified hyperlipidemia type; Prediabetes; Stage 3 chronic kidney disease, unspecified whether stage 3a or 3b CKD (HCC); Pulmonary hypertension (HCC); First degree AV block; Acquired hypothyroidism Start: 07-15-2024 End: 07-15-2024 ambulatory JEANETTE PODLOGAR Facility:[facility] Start: 07-11-2024 End: 07-11-2024 Refill Girish Lemos MD Work Phone: [facility] Comment on above: Refill Request Start: 06-25-2024 End: 06-30-2024 ambulatory Girish Lemos MD Work Phone: Internal Medicine [place] [id number] Start: 06-16-2024 End: 06-16-2024 ambulatory Fabricio Lemos Facility:[facility] Start: 06-13-2024 End: 06-13-2024 ambulatory XUAN ERNANDEZ [facility] Start: 06-02-2024 End: 06-02-2024 ambulatory Fabricio Lemos Facility:[facility] Start: 04-28-2024 Refill Girish Lemos MD Work Phone: [facility] Comment on above: Refill Request Start: 03-06-2024 End: 03-06-2024 ambulatory XUAN ERNANDEZ [facility] Start: 01-21-2024 Telephone encounter Jeanette kirkland APRN.FORMULATOR COMPOUNDER Work Phone: [facility] Comment on above: Results Start: 01-21-2024 End: 01-21-2024 ambulatory [facility] Work Phone: Start: 01-21-2024 End: 01-21-2024 Patient encounter procedure [facility], [facility] Work Phone: Start: 01-08-2024 End: 01-08-2024 Patient encounter procedure Jeanette Berrios APRN.FORMULATOR COMPOUNDER Work Phone: [facility] Comment on above: Essential hypertensi on (Primary Dx); Non-seasonal allergic rhinitis, unspecified trigger; Acquired hypothyroidism; Hyperlipidemia, unspecified hyperlipidemia type; Stage 3 chronic kidney disease, unspecified whether stage 3a or 3b CKD (HCC); Pulmonary hypertension (HCC); Muscle cramps Start: 10-23-2023 Refill Girish Lemos MD Work Phone: [facility] Comment on above: Refill Request Start: 07-25-2023 ambulatory Girish Lemos MD Work Phone: Internal Medicine [facility] Start: 06-22-2023 End: 06-22-2023 Patient encounter procedure Jeanette Berrios APRN.FORMULATOR COMPOUNDER Work Phone: [facility] Comment on above: Essential hypertensi on (Primary Dx); Encounter for immunization; Prediabetes; Acquired hypothyroidism; Stage 3 chronic kidney disease, unspecified whether stage 3a or 3b CKD (HCC); First degree AV block Start: 06-21-2023 End: 06-21-2023 ambulatory XUAN ERNANDEZ [facility] Start: 05-07-2023 Telephone encounter Fabricio Lemos MD Work Phone: [facility] Comment on above: Consult Start: 05-07-2023 Non-patient / Non-visit Dr. Johnny Lemos Work Phone: [facility] Start: 05-03-2023 End: 05-03-[address] Fabricio Lemos Work Phone: [facility] Work Phone: Start: 05-03-2023 End: 05-03-[address] [facility] Work Phone: Start: 05-02-2023 Non-patient / Non-visit Dr. Johnny Lemos Work Phone: [facility] Start: 05-01-2023 End: 05-01-[address] Fabricio Lemos [facility] Work Phone: Start: 04-13-2023 Refill Girish Lemos MD Work Phone: [facility] Comment on above: Refill Request Start: 03-21-2023 End: 03-21-2023 Patient encounter procedure Jeanette Berrios APRN.FORMULATOR COMPOUNDER Work Phone: [facility] Comment on above: Primary hypertension (Primary Dx); Bradycardia; Skin eruption Start: 03-19-2023 Telephone encounter Fabricio Lemos MD Work Phone: [facility] Comment on above: Request Outside [facility] Records Start: 03-13-2023 End: 03-13-[address] [facility] Lem[facility] Work Phone: Start: 02-21-2023 Telephone encounter Jeanette kirkland APRN.FORMULATOR COMPOUNDER Work Phone: [facility] Comment on above: Results Start: 02-20-2023 End: 02-20-2023 Patient encounter procedure Jeanette Berrios APRN.FORMULATOR COMPOUNDER Work Phone: [facility] Comment on above: Essential hypertensi on (Primary Dx); Prediabetes; Acquired hypothyroidism; Hyperlipidemia, unspecified hyperlipidemia type; Bradycardia; First degree AV block; Stage 3 chronic kidney disease, unspecified whether stage 3a or 3b CKD ([facility]) Start: 01-24-2023 End: 01-24-2023 Patient encounter procedure Talat Merida Work Phone: Podiatry Comment on above: Hammertoe of left fo ot (Primary Dx); Pain in toe of left foot; Other acute pulmonary embolism, unspecified whether acute cor pulmonale present ([facility]) Start: 01-24-2023 End: 01-24-2023 Subsequent hospital visit by physician Xr [facility] Work Phone: Radiology Comment on above: Pain [R52] Start: 01-18-2023 End: 01-18-[address] Fabricio Lemos Work Phone: [facility] Work Phone: Start: 01-18-2023 End: 01-18-[address] Fabricio Lemos Work Phone: [facility]-Cat Scan, [facility] Start: 09-25-2022 End: 09-25-[address] Fabricio Lemos Work Phone: [facility]-Pulmonary Medicine [facility] Start: 09-22-2022 Telephone encounter Jeanette kirkland APRN.CNP Work Phone: [facility] Comment on above: Results Start: 09-20-2022 End: 09-20-2022 Subsequent hospital visit by physician Bone Density [facility] Work Phone: Radiology Comment on above: Screening for osteop orosis [Z13.820] Start: 09-19-2022 End: 09-19-2022 Patient encounter procedure Girish Lemos MD Work Phone: [facility] Comment on above: Skin tag (Primary Dx ); S/P cryotherapy of skin lesion Start: 09-13-2022 End: 09-13-2022 Emergency department patient visit Dr. Fabricio Lemos Work Phone: [facility]-Emergency Department Start: 09-08-2022 Telephone encounter Fabricio Lemos MD Work Phone: [facility] Comment on above: Medication Request Start: 09-04-2022 End: 09-04-[address] Fabricio Lemos [facility] Start: 08-23-2022 Telephone encounter Jeanette kirkland APRN.FORMULATOR COMPOUNDER Work Phone: [facility] Comment on above: Results Start: 08-22-2022 End: 08-22-2022 Patient encounter procedure Jeanette Berrios APRN.FORMULATOR COMPOUNDER Work Phone: [facility] Comment on above: Essential hypertensi on (Primary Dx); Encounter for immunization; Prediabetes; Hyperlipidemia, unspecified hyperlipidemia type; Acquired hypothyroidism; Ringworm of body; Screening for osteoporosis; Gastroesophageal reflux disease without esophagitis; Dyspareunia in female; Abnormal vaginal bleeding in postmenopausal patient Start: 08-17-2022 ambulatory Girish Lemos MD Work Phone: Internal Medicine [facility] Start: 08-04-2022 Refill Girish Lemos MD Work Phone: [facility] Comment on above: Refill Request Start: 07-26-2022 Telephone encounter Rosie Mcintosh APRN.FORMULATOR COMPOUNDER Work Phone: [facility] Comment on above: Results Start: 07-24-2022 End: 07-24-2022 Patient encounter procedure Jamaica Malone APRN.FORMULATOR COMPOUNDER Work Phone: [facility] Comment on above: Gross hematuria ([place] ch[place] Dx); Acute vaginitis; Vulvar irritation Start: 07-24-2022 ambulatory Girish Lemos MD Work Phone: [facility] Comment on above: urinary symptoms Start: 03-23-2022 ambulatory Girish Lemos MD Work Phone: [facility] Comment on above: Cough Start: 03-23-2022 End: 03-23-2022 Patient encounter procedure Girish Lemos MD Work Phone: [facility] Comment on above: Suspected COVID-19 v irus infection (Primary Dx); Non-seasonal allergic rhinitis, unspecified trigger Start: 02-22-2022 Refill Girish Lemos MD Work Phone: [facility] Comment on above: Refill Request Start: 01-18-2022 End: 01-18-[address] Fabricio Lemos Work Phone: [facility] Start: 01-05-2022 End: 01-05-[address] Fabricio Lemos [facility] Start: 11-25-2021 End: 11-25-2021 Subsequent hospital visit by physician Xr [facility] Work Phone: Radiology Comment on above: Pneumonia due to inf ectious organism, unspecified laterality, unspecified part of lung [J18.9] Start: 11-17-2021 End: 11-17-2021 Emergency department patient visit Dr. Fabricio Lemos Work Phone: [facility]-Emergency Department Start: 11-15-2021 End: 11-15-2021 Subsequent hospital visit by physician Xr [facility] Work Phone: Radiology Comment on above: Fever, unspecified f ever cause [R50.9] Start: 11-12-2021 End: 11-12-2021 Emergency department patient visit Dr. Fabricio Lemos Work Phone: [facility]-Emergency Department Start: 10-06-2021 End: 10-06-[address] Fabricio Lemos Work Phone: [facility]-Sleep Lab Start: 09-08-2020 End: 09-08-2020 [facility] Start: 09-06-2020 End: 09-06-2020 Patient encounter procedure [facility] Start: 09-01-2020 End: 09-01-2020 Patient encounter procedure TONI [facility] Start: 08-25-2020 End: 08-25-2020 Patient encounter procedure TONI [facility] Start: 08-18-2020 End: 08-18-2020 Patient encounter procedure [facility] Procedures Date Procedure Procedure Detail Performing Clinician Start: 04-06-2025 MRI of lumbar spine with contrast Dr. Fabricio Lemos MD Work Phone: Start: 04-06-[address] Fabricio Lemos MD Work Phone: Start: 04-06-[address] fraction Dr[address] Fabricio Lemos MD Work Phone: Start: 04-06-2025 Serum inorganic phos phate measurement Dr. Fabricio Lemos MD Work Phone: Start: 04-06-2025 Total iron binding c apacity measurement Dr. Fabricio Lemos MD Work Phone: [...] Start: 11-14-2024 Biopsy/Inj or Needle Placement Dr. Fbaricio Lemos MD Work Phone: Start: 11-14-2024 Dr. [...] abdomen & pelvis w/contrast material Oleg Fields 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 Work Phone: Start: 01-21-2024 CT of chest Start: 06-22-2023 INFLUENZA VACCINE, P RSV FREE, AGE 65+ YR, HIGH DOSE, QUADRIVALENT (FLUZONE HIGH-DOSE) Jeanette Schaefferlogshai 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 Work Phone: Start: 02-20-2023 Ecg routine ecg w/le ast 12 lds i&r only [facility] Provider Start: 02-20-2023 Lipid 1996 panel - S anahi or Plasma Jeanette Schaefferlogshai 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 Work Phone: Start: 01-24-2023 Radex foot complete minimum 3 views Talat Merida Work Phone: Start: 01-18-[address] Fili Lemos Work Phone: Start: 09-20-2022 Dxa bone density tripp dy 1/> sites axial skel Jeanette Podlogar 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 Work Phone: Start: 09-13-2022 Plain chest X-ray Dr. Ansley Lemos Work Phone: Start: 08-22-2022 INFLUENZA SEASONAL QUADRIVALENT HIGH DOSE AGE 65+ Jeanette Podlogar 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 Work Phone: Start: 07-24-2022 Urnls dip stick/tabl et rgnt auto w/o microscopy [place] Kira 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 Work Phone: Start: 03-23-2022 2019 CORONAVIRUS Fili Lemos MD Work Phone: Start: 01-18-[address] Fili Lemos Work Phone: Start: 11-25-2021 Radiologic exam ches t 2 views Girish Lemos MD Work Phone: Start: 11-17-2021 Plain chest X-ray Dr. Ansley Lemos Work Phone: Start: 11-15-2021 Radiologic exam ches t 2 views Jeanette Podlogshai 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 Work Phone: Start: 11-12-2021 Plain chest X-ray Dr. Ansley Lemos Work Phone: Start: 11-12-2021 SARS-CoV-2 Antigen (Rapid) Dr. Fabricio Lemos Work Phone: Start: 07-16-2019 Mammography Fabricio Lemos MD Work Phone: Start: 03-28-2018 Colonoscopy Fabricio Lemos MD Work Phone: Plan of Treatment Date Care Activity Detail Author Start: 2029 RSV Vaccine (1 - 1-dose 75+ series) RSV Vaccine (1 - 1-dose 75+ series) [facility] Start: 02-21-2028 Lipid 1996 panel - Serum or Plasma Lipid Screening [facility] Start: 02-21-2028 Lipid panel Lipid Screening [facility] Start: 02-21-2028 LIPID SCREEN LIPID SCREEN [facility] Start: 10-16-2027 Diabetes Screening Diabetes Screening [facility] Start: 08-22-2027 LIPID SCREEN LIPID SCREEN [facility] Start: 07-15-2027 Diabetes Screening Diabetes Screening [facility] Start: 01-17-2027 Diabetes Screening Diabetes Screening [facility] Start: 02-20-2026 DIABETES SCREEN DIABETES SCREEN [facility] Start: 02-20-2026 Diabetes Screening Diabetes Screening [facility] Start: 01-26-2026 Annual PCP Team Chronic Disease Visit Annual PCP Team Chronic Disease Visit [facility] Start: 01-26-2026 BP Controlled (<130/80) BP Controlled (<130/80) [facility] Start: 01-13-2026 Annual PCP Team Chronic Disease Visit Annual PCP Team Chronic Disease Visit [facility] Start: 01-13-2026 BP Controlled (<130/80) BP Controlled (<130/80) [facility] Start: 11-17-2025 LIPID SCREEN LIPID SCREEN [facility] Start: 11-12-2025 Annual PCP Team Chronic Disease Visit Annual PCP Team Chronic Disease Visit [facility] Start: 11-12-2025 BP Controlled (<130/80) BP Controlled (<130/80) [facility] Start: 10-30-2025 Screening for malignant neoplasm of lung Lung Cancer Screening [facility] Start: 10-17-2025 Annual PCP Team Chronic Disease Visit Annual PCP Team Chronic Disease Visit [facility] Start: 10-17-2025 BP Controlled (<130/80) BP Controlled (<130/80) [facility] Start: 10-16-2025 Annual PCP Team Chronic Disease Visit Annual PCP Team Chronic Disease Visit [facility] Start: 10-16-2025 Creatinine measurement Serum Creatinine [facility] Start: 09-19-2025 Annual PCP Team Chronic Disease Visit Annual PCP Team Chronic Disease Visit [facility] Start: 09-19-2025 BP Controlled (<130/80) BP Controlled (<130/80) [facility] Start: 08-22-2025 DIABETES SCREEN DIABETES SCREEN [facility] Start: 08-19-2025 Annual PCP Team Chronic Disease Visit Annual PCP Team Chronic Disease Visit [facility] Start: 07-15-2025 Annual PCP Team Chronic Disease Visit Annual PCP Team Chronic Disease Visit [facility] Start: 07-15-2025 Creatinine measurement Serum Creatinine [facility] Start: 05-18-2025 Influenza vaccination Influenza Vaccine (#1) [facility] Start: 04-14-2025 End: 04-14-2025 Patient encounter procedure 04/14/2025 9:40 AM EDT Office Visit [facility] [place] [address] [place] [address] Girish Lemos MD [address] [place] [address] 3 month follow up [facility] Comment on above: 3 month follow up Start: 04-06-2025 [facility] Start: 04-06-2025 Serum inorganic phosphate measurement [facility] Start: 04-06-2025 Vital signs measurements [facility] Start: 04-05-2025 End: 04-06-2025 [facility] Start: 03-18-2025 Vital signs measurements [facility] Start: 03-17-2025 Vital signs measurements [facility] Start: 03-16-2025 [facility] Start: 03-16-2025 Vital signs measurements [facility] Start: 02-26-2025 Vital signs measurements [facility] Start: 02-25-2025 Vital signs measurements [facility] Start: 02-24-2025 [facility] Start: 02-24-2025 Vital signs measurements [facility] Start: 02-17-2025 Venous catheter care management [facility] Start: 02-16-2025 Anes dx/ther nerve block/injection prone pos [facility] Start: 02-16-2025 Njx anes&/strd w/img tfrml edrl lmbr/sac 1 lvl [facility] Start: 02-16-2025 Njx anes&/strd w/img tfrml edrl lmbr/sac ea lv [facility] Start: 02-16-2025 Injection of spinal epidural space [facility] Start: 02-16-2025 X-ray of lumbar spine, two or three views [facility] Start: 02-16-2025 Patient discharge [facility] Start: 02-05-2025 Vital signs measurements [facility] Start: 02-04-2025 Vital signs measurements [facility] Start: 02-03-2025 [facility] Start: 02-03-2025 Vital signs measurements [facility] Start: 01-20-2025 Screening for malignant neoplasm of lung Lung Cancer Screening [facility] Start: 01-17-2025 Creatinine measurement Serum Creatinine [facility] Start: 01-13-2025 End: 01-13-2025 Patient encounter procedure 01/13/2025 9:20 AM EDT Office Visit [facility] [place] [address] [place] [address] Girish Lemos MD [address] [place] [address] 6 month follow up [facility] [place] Comment on above: 6 month follow up Start: 01-10-2025 Patient discharge [facility] Start: 01-09-2025 Continuous positive airway pressure ventilation treatment [facility] Start: 01-09-2025 Chemotherapy care management [facility] Start: 01-09-2025 Venous catheter care management [facility] Start: 01-09-2025 Assessment of risk of venous thromboembolism [facility] Start: 01-09-2025 Care regimes management [facility] Start: 01-09-2025 Incentive spirometry [facility] Start: 01-09-2025 Insertion of catheter into peripheral vein [facility] Start: 01-09-2025 Measuring intake and output [facility] Start: 01-09-2025 Notification of physician [facility] Start: 01-09-2025 Oxygen therapy [facility] Start: 01-09-2025 Providing care according to standard [facility] Start: 01-09-2025 Provision of activity privileges [facility] Start: 01-09-2025 Referral to service [facility] Start: 01-09-2025 End: 01-09-2025 [facility] Start: 01-09-2025 Admission procedure [facility] Start: 01-09-2025 [facility] Start: 01-09-2025 Chemotherapy care management [facility] Start: 01-09-2025 Inhalation therapy procedure [facility] Start: 01-09-2025 Patient referral to dietitian [facility] Start: 01-08-2025 Vital signs measurements [facility] Start: 01-07-2025 Annual PCP Team Chronic Disease Visit Annual PCP Team Chronic Disease Visit [facility] Start: 01-07-2025 Vital signs measurements [facility] Start: 01-06-2025 Patient referral [facility] Work Phone: Start: 01-06-2025 Vital signs measurements [facility] Start: 12-26-2024 End: 12-26-2024 Patient encounter procedure 12/26/2024 10:30 AM EDT Office Visit [facility] [address] [facility] [facility] [place] [id number] Rachael Sheikh APRN.[employer] [address] [facility] [place] [address] Abnormal MRI, liver [R93.2] [facility] Comment on above: Abnormal MRI, liver [R93.2] Start: 12-18-2024 Vital signs measurements [facility] Start: 12-17-2024 Vital signs measurements [facility] Start: 12-16-2024 Patient referral [facility] Work Phone: Start: 12-16-2024 Venous catheter care management [facility] Start: 12-16-2024 Vital signs measurements [facility] Start: 12-12-2024 Anesthesia access central venous circulation [facility] Start: 12-12-2024 Insj tunneled ctr vad w/subq port age 4 yr/> [facility] Start: 12-12-2024 [facility] Start: 12-12-2024 Patient discharge [facility] Start: 12-09-2024 Patient referral [facility] Work Phone: Start: 11-24-2024 Patient referral [facility] Work Phone: Start: 11-23-2024 [facility] Start: 11-15-2024 DIABETES SCREEN DIABETES SCREEN [facility] Start: 11-15-2024 Provision of activity privileges [facility] Start: 11-15-2024 Patient discharge [facility] Start: 11-14-2024 [facility] Start: 11-14-2024 Following clinical pathway protocol [facility] Start: 11-14-2024 Referral to service [facility] Start: 11-14-2024 End: 11-14-2024 Patient encounter procedure 11/14/2024 8:40 AM EST Office Visit [facility] [place] [address] [place] [address] Girish Lemos MD [address] [place] [address] 4 week follow up Family [facility] Comment on above: 4 week follow up Start: 11-14-2024 Catheterization of vein [facility] Start: 11-14-2024 Vital signs measurements [facility] Start: 11-13-2024 Provision of activity privileges [facility] Start: 11-12-2024 Biopsy liver needle percutaneous [facility] Start: 11-12-2024 Assessment of risk of venous thromboembolism [facility] Start: 11-12-2024 Inhalation therapy procedure [facility] Start: 11-12-2024 Insertion of catheter into peripheral vein [facility] Start: 11-12-2024 Measuring intake and output [facility] Start: 11-12-2024 Patient referral to dietitian [facility] Start: 11-12-2024 Providing care according to standard [facility] Start: 11-12-2024 Provision of activity privileges [facility] Start: 11-12-2024 Referral to occupational therapist [facility] Start: 11-12-2024 Referral to service [facility] Start: 11-12-2024 End: 11-12-2024 [facility] Start: 11-12-2024 Admission procedure [facility] Start: 11-05-2024 End: 11-05-2024 ambulatory 11/05/2024 9:00 AM EST Visit (SP) Office Hematology/Oncology [address] [place] [address] [place] [address] [place] [address] 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/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 MASSES/REF PROV DR LEMOS* Hematology/Oncology Comment on above: 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/LIVER MASSES/REF PROV DR LEMOS* Start: 10-30-2024 End: 10-30-2024 Patient encounter procedure 10/30/2024 8:00 AM EST Appointment Cat Scan [address] [place] [address] Liver masses [R16.0] [facility] Comment on above: Liver masses [R16.0] Start: 10-22-2024 End: 10-22-2024 Patient encounter procedure 10/22/2024 3:40 PM EST Appointment Cat Scan [address] [place] [address] Liver masses [R16.0] [facility] Comment on above: Liver masses [R16.0] Start: 10-21-2024 End: 10-21-2024 Patient encounter procedure 10/21/2024 8:20 AM EST Appointment Cat Scan [address] [place] [address] Liver masses [R16.0] [facility] Comment on above: Liver masses [R16.0] Start: 10-20-2024 End: 10-20-2024 Patient encounter procedure 10/20/2024 11:20 AM EST Appointment Cat Scan [address] [place] [address] Liver masses [R16.0] [facility] Comment on above: Liver masses [R16.0] Start: 10-17-2024 End: 01-16-2025 [id number] [Mass/volume] in Serum or Plasma [facility] Comment on above: Expected: 10/17/2024, Expires: Start: 10-17-2024 End: 10-17-2024 Patient encounter procedure 10/17/2024 1:00 PM EST Office Visit [facility] [place] [address] [place] [address] Girish Lemos MD [address] [place], [place] [id number] follow up to discuss resutls [facility] [place] Comment on above: follow up to discuss resutls Start: 10-16-2024 End: 01-15-2025 Amylase [Enzymatic activity/volume] in Serum or Plasma [facility] Comment on above: Expected: 10/16/2024, Expires: Start: 10-16-2024 End: 01-15-2025 Lipase [Enzymatic activity/volume] in Serum or Plasma [facility] Work Phone: Comment on above: Expected: 10/16/2024, Expires: Start: 10-16-2024 End: 10-16-2024 Patient encounter procedure 10/16/2024 8:40 AM EST Office Visit [facility] [place] [address] [place], [place] [id number] 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 [address] [place], [place] [id number] Abdominal Pain. See triage 10/15/2024. [facility] [place] Comment on above: Abdominal Pain. See triage 10/15/2024. Start: 09-19-2024 End: 09-19-2024 Patient encounter procedure 09/19/2024 9:40 AM EST Office Visit [facility] [place] [address] [place] [address] Girish Lemos MD [address] [place] [address] 1 month follow up [facility] [place] Comment on above: 1 month follow up Start: 09-17-2024 Advance Directive Discussion Advance Directive Discussion [facility] Start: 09-17-2024 Medicare Advantage Annual Wellness Visit Medicare Advantage Annual Wellness Visit [facility] Start: 08-19-2024 End: 08-19-2024 Patient encounter procedure 08/19/2024 10:20 AM EST Office Visit [facility] [place] [address] [place] [address] Jeanette Berrios APRN.FORMULATOR COMPOUNDER [address] [place] [address] BP check [facility] [place] Comment on above: BP check Start: 07-15-2024 End: 10-14-2024 Comprehensive metabolic 2000 panel - Serum or Plasma [facility] Work Phone: Comment on above: Expected: 07/15/2024, Expires: Start: 07-15-2024 End: 10-14-2024 Hemoglobin A1c in Blood [facility] Comment on above: Expected: 07/15/2024, Expires: Start: 07-15-2024 End: 07-15-2024 Patient encounter procedure 07/15/2024 9:00 AM EDT Office Visit [facility] [place] [address] [place] [address] Jeanette Berrios, 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 [address] [place] [address] 6 month follow up [facility] [place] Comment on above: 6 month follow up Start: 07-09-2024 End: 07-09-2024 Patient encounter procedure 07/09/2024 9:40 AM EDT Office Visit [facility] [place] [address] [place] [address] Jeanette Berrios APRN.FORMULATOR COMPOUNDER [address] [place] [address] 6 month follow up [facility] [place] Comment on above: 6 month follow up Start: 06-22-2024 Annual PCP Team Chronic Disease Visit Annual PCP Team Chronic Disease Visit [facility] Start: 06-22-2024 BP Controlled (<130/80) BP Controlled (<130/80) [facility] Start: 05-18-2024 Covid-19 Vaccine () Covid-19 Vaccine () [facility] Start: 05-18-2024 Influenza vaccination Influenza Vaccine (#1) [facility] Start: 03-21-2024 ANNUAL PCP TEAM CHRONIC DISEASE VISIT ANNUAL PCP TEAM CHRONIC DISEASE VISIT [facility] Start: 02-21-2024 ANNUAL PCP TEAM CHRONIC DISEASE VISIT ANNUAL PCP TEAM CHRONIC DISEASE VISIT [facility] Start: 02-21-2024 Creatinine measurement Serum Creatinine [facility] Start: 02-21-2024 SERUM CREATININE SERUM CREATININE [facility] Start: 01-19-2024 Influenza vaccination LUNG CANCER SCREENING [facility] Start: 01-19-2024 Screening for malignant neoplasm of lung Lung Cancer Screening [facility] Start: 01-08-2024 End: 04-08-2024 25-hydroxyvitamin D3 [Mass/volume] in Serum or Plasma VITAMIN D 25 HYDROXY Lab Routine Muscle cramps Expected: 01/08/2024, Expires: 04/08/2024 [facility] Work Phone: Comment on above: Expected: 01/08/2024, Expires: Start: 01-08-2024 End: 04-08-2024 CBC W Auto Differential panel - Blood COMPLETE BLOOD COUNT AND DIFFERENTIAL Lab Routine Muscle cramps Expected: 01/08/2024, Expires: 04/08/2024 [facility] Comment on above: Expected: 01/08/2024, Expires: Start: 01-08-2024 End: 04-08-2024 Comprehensive metabolic 2000 panel - Serum or Plasma COMPREHENSIVE METABOLIC PANEL Lab Routine Essential hypertension Hyperlipidemia, unspecified hyperlipidemia type Expected: 01/08/2024, Expires: 04/08/2024 [facility] Comment on above: Expected: 01/08/2024, Expires: Start: 01-08-2024 End: 04-08-2024 Thyrotropin [Units/volume] in Serum or Plasma THYROID STIMULATING HORMONE Lab Routine Muscle cramps Expected: 01/08/2024, Expires: 04/08/2024 [facility] Comment on above: Expected: 01/08/2024, Expires: Start: 09-19-2023 ANNUAL PCP TEAM CHRONIC DISEASE VISIT ANNUAL PCP TEAM CHRONIC DISEASE VISIT [facility] Start: 09-19-2023 BP CONTROLLED (<130/80) BP CONTROLLED (<130/80) [facility] Start: 09-17-2023 Advance Directive Discussion Advance Directive Discussion [facility] Start: 08-22-2023 ANNUAL PCP TEAM CHRONIC DISEASE VISIT ANNUAL PCP TEAM CHRONIC DISEASE VISIT [facility] Start: 08-22-2023 End: 10-22-2023 Comprehensive metabolic 2000 panel - Serum or Plasma COMP METABOLIC PANEL Lab Routine Essential hypertension Expected: 08/22/2023, Expires: 10/22/2023 [facility] Work Phone: Comment on above: Expected: 08/22/2023, Expires: 4 Start: 08-22-2023 End: 10-22-2023 Hemoglobin A1c in Blood HGB A1C Lab Routine Prediabetes Expected: 08/22/2023, Expires: 10/22/2023 [facility] Work Phone: Comment on above: Expected: 08/22/2023, Expires: 4 Start: 08-22-2023 SERUM CREATININE SERUM CREATININE [facility] Start: 07-24-2023 BP CONTROLLED (<130/80) BP CONTROLLED (<130/80) [facility] Start: 05-18-2023 Covid-19 Vaccine ( season) Covid-19 Vaccine () [facility] Start: 05-18-2023 Influenza vaccination INFLUENZA (#1) [facility] Start: 03-28-2023 Colonoscopy COLONOSCOPY [facility] Start: 03-28-2023 COLORECTAL CANCER SCREENING COLORECTAL CANCER SCREENING [facility] Start: 03-28-2023 Screening for malignant neoplasm of colon [facility] Start: 03-23-2023 ANNUAL PCP TEAM CHRONIC DISEASE VISIT ANNUAL PCP TEAM CHRONIC DISEASE VISIT [facility] Start: 02-20-2023 End: 04-22-2023 Comprehensive metabolic 2000 panel - Serum or Plasma [facility] Work Phone: Comment on above: Expected: 02/20/2023, Expires: 3 Start: 02-20-2023 End: 04-22-2023 Hemoglobin A1c in Blood [facility] Work Phone: Comment on above: Expected: 02/20/2023, Expires: 3 Start: 02-20-2023 End: 04-22-2023 Lipid 1996 panel - Serum or Plasma [facility] Work Phone: Comment on above: Expected: 02/20/2023, Expires: 3 Start: 02-20-2023 End: 04-22-2023 Magnesium [Mass/volume] in Serum or Plasma [facility] Work Phone: Comment on above: Expected: 02/20/2023, Expires: 3 Start: 02-20-2023 End: 04-22-2023 Thyrotropin [Units/volume] in Serum or Plasma [facility] Work Phone: Comment on above: Expected: 02/20/2023, Expires: 3 Start: 01-18-2023 Influenza vaccination LUNG CANCER SCREENING [facility] Start: 11-25-2022 ANNUAL PCP TEAM CHRONIC DISEASE VISIT ANNUAL PCP TEAM CHRONIC DISEASE VISIT [facility] Start: 11-25-2022 BP CONTROLLED (<130/80) BP CONTROLLED (<130/80) [facility] Start: 09-17-2022 ADVANCE DIRECTIVE DISCUSSION ADVANCE DIRECTIVE DISCUSSION [facility] Start: 09-13-2022 [facility] Work Phone: Start: 08-22-2022 End: 10-22-2022 Comprehensive metabolic 2000 panel - Serum or Plasma [facility] Work Phone: Comment on above: Expected: 08/22/2022, Expires: 3 Start: 08-22-2022 End: 10-22-2022 Hemoglobin A1c in Blood [facility] Work Phone: Comment on above: Expected: 08/22/2022, Expires: 3 Start: 08-22-2022 End: 10-22-2022 Lipid 1996 panel - Serum or Plasma [facility] Work Phone: Comment on above: Expected: 08/22/2022, Expires: 3 Start: 08-22-2022 End: 10-22-2022 Thyrotropin [Units/volume] in Serum or Plasma [facility] Work Phone: Comment on above: Expected: 08/22/2022, Expires: 3 Start: 07-24-2022 End: 09-23-2022 BACTERIAL VAGINOSIS AMPLIFICATION BACTERIAL VAGINOSIS AMPLIFICATION Lab Routine Acute vaginitis Expected: 07/24/2022, Expires: 09/23/2022 [facility] Work Phone: Comment on above: Expected: 07/24/2022, Expires: 3 Start: 05-18-2022 Influenza vaccination [facility] Start: 11-17-2021 BP CONTROLLED (<130/80) BP CONTROLLED (<130/80) [facility] Start: 09-17-2021 ADVANCE DIRECTIVE DISCUSSION ADVANCE DIRECTIVE DISCUSSION [facility] Start: 04-26-2021 COVID-19 VACCINE (3 - Booster for Moderna series) COVID-19 VACCINE (3 - Booster for Moderna series) [facility] Start: 04-09-2021 PNEUMOCOCCAL: 65+ (2 - PCV) PNEUMOCOCCAL: 65+ (2 - PCV) [facility] Start: 01-19-2021 COVID-19 VACCINE (3 - Booster for Moderna series) COVID-19 VACCINE (3 - Booster for Moderna series) [facility] Start: 01-19-2021 COVID-19 VACCINE (3 - Moderna series) COVID-19 VACCINE (3 - Moderna series) [facility] Start: 07-16-2020 Mammography [facility] Start: 07-16-2020 Screening for malignant neoplasm of breast Mammogram Screening [facility] Start: 2019 BONE DENSITY BONE DENSITY [facility] Start: 07-03-2018 Urine microalbumin profile DTAP,TDAP,TD (1 - Tdap) [facility] Start: 2014 RSV Vaccine (1 - 1-dose 60+ series) RSV Vaccine (1 - 1-dose 60+ series) [facility] Start: 2004 Influenza vaccination LUNG CANCER SCREENING [facility] Start: 2004 SHINGRIX VACCINE (1 of 2) SHINGRIX VACCINE (1 of 2) [facility] Start: 1999 COLOGUARD (FIT-DNA) COLOGUARD (FIT-DNA) [facility] Start: [address] COLONOGRAPHY [facility] Start: 1999 FECAL OCCULT BLOOD FECAL OCCULT BLOOD [facility] Start: 1999 Screening for malignant neoplasm of colon [facility] Start: 1999 SIGMOIDOSCOPY SIGMOIDOSCOPY [facility] Alanine aminotransfe rase [Enzymatic activity/volume] in Serum or Plasma [facility] Albumin [Mass/volume ] in Serum or Plasma [facility] Alkaline phosphatase [Enzymatic activity/volume] in Serum or Plasma [facility] Anion gap in Serum o r Plasma [facility] Bacteria identified in Urine by Culture URINE CULTURE Microbiology Routine Gross hematuria Ordered: 07/24/2022 [facility] Work Phone: Comment on above: Ordered: 07/24/2022 Bilirubin, total measurement [facility] BUN/Creatinine ratio [facility] Calcium [Mass/volume ] in Serum or Plasma [facility] SUNI / TRICHOMONA S AMPLIFICATION SUNI / TRICHOMONAS AMPLIFICATION Microbiology Routine Acute vaginitis Ordered: 07/24/2022 [facility] Work Phone: Comment on above: Ordered: 07/24/2022 Carbon dioxide, tota l [Moles/volume] in Central venous blood [facility] CBC W Auto Different ial panel - Blood [facility] Comprehensive metabo lic 1999 panel - Serum or Plasma [facility] COVID & INFLUENZA A/ B & RSV PCR, ROUTINE COVID & INFLUENZA A/B & RSV PCR, ROUTINE Microbiology Routine Viral URI with cough 01/26/2025 1:45 PM EDT [facility] Work Phone: Creatinine [Mass/vol ume] in Serum or Plasma [facility] CT Chest and Abdomen W contrast IV [facility] CT Chest and Abdomen W contrast IV [facility] End: 11-16-2025 CT Chest W contrast IV CT CHEST W IVCON Radiology STAT Liver masses 1 Occurrences starting 10/17/2024 until 11/16/2025 [facility] Work Phone: Comment on above: 1 Occurrences starting 10/17/2024 until 11/16/2025 End: 07-25-2025 DBT Breast - bilateral screening LYN SCREENING W ANT Radiology Routine Encounter for screening mammogram for breast cancer 1 Occurrences starting 06/25/2024 until 07/25/2025 [facility] Work Phone: Comment on above: 1 Occurrences starting 06/25/2024 until 07/25/2025 End: 09-21-2023 DXA-AXIAL SKELETON DXA-AXIAL SKELETON Radiology Routine Screening for osteoporosis 1 Occurrences starting 08/22/2022 until 09/21/2023 [facility] Work Phone: Comment on above: 1 Occurrences starting 08/22/2022 until 09/21/2023 End: 02-21-2024 ECG COMPLETE ECG COMPLETE ECG Routine Bradycardia 1 Occurrences starting 02/20/2023 until 02/21/2024 [facility] Work Phone: Comment on above: 1 Occurrences starting 02/20/2023 until 02/21/2024 ECG COMPLETE ECG COMPLETE ECG 02/20/2023 9:30 AM EDT [facility] Erythrocyte mean corpuscular volume determination [facility] End: 02-21-2024 EXERCISE STRESS ECG (WITHOUT IMAGING) EXERCISE STRESS ECG (WITHOUT IMAGING) Cardiology Routine Bradycardia First degree AV block 1 Occurrences starting 02/20/2023 until 02/21/2024 [facility] Work Phone: Comment on above: 1 Occurrences starting 02/20/2023 until 02/21/2024 Ferritin [Mass/volum e] in Serum or Plasma [facility] Glucose [Mass/volume ] in Serum or Plasma [facility] Hematocrit [Volume Fraction] of Blood [facility] Hemoglobin [Mass/vol ume] in Blood [facility] Interventional radio logy Consult note IR INTERVENTIONAL RADIOLOGY CONSULT Radiology Routine Abnormal MRI, liver Ordered: 10/16/2024 [facility] Work Phone: Comment on above: Ordered: 10/16/2024 Iron and Iron bindin g capacity panel - Serum or Plasma [facility] Lactate dehydrogenas e measurement [facility] Leukocytes [#/volume ] in Blood [facility] Magnesium measurement [facility] Magnesium measurement [facility] End: 09-16-2023 LYN SCREENING LYN SCREENING Radiology Routine Encounter for screening mammogram for breast cancer 1 Occurrences starting 08/17/2022 until 09/16/2023 [facility] Work Phone: Comment on above: 1 Occurrences starting 08/17/2022 until 09/16/2023 End: 08-23-2024 LYN SCREENING LYN SCREENING Radiology Routine Encounter for screening mammogram for breast cancer 1 Occurrences starting 07/25/2023 until 08/23/2024 [facility] Work Phone: Comment on above: 1 Occurrences starting 07/25/2023 until 08/23/2024 Mean corpuscular hemoglobin concentration determination [facility] Mean corpuscular hemoglobin determination [facility] Measurement of renal function [facility] MR Lumbar spine WO a nd W contrast IV [facility] Neutrophil count [facility] Neutrophil percent differential count [facility] Patient Education [facility] Work Phone: Patient referral [facility] Work Phone: Platelets [#/volume] in Blood [facility] Positron emission tomography with computed tomography [facility] Potassium measurement [facility] Red blood cell count [facility] Red cell distributio n width determination [facility] Removal skn tags dry transfer worker fibrq tags any area upw/15 REMOVAL OF SKIN TAGS 1-15 Procedures Routine Skin tag S/P cryotherapy of skin lesion Ordered: 09/19/2022 [facility] Work Phone: Comment on above: Ordered: 09/19/2022 Reticulocyte count [facility] Serum chloride measurement [facility] Serum inorganic phosphate measurement [facility] Sodium measurement [facility] Thyroid stimulating hormone measurement [facility] Total protein measurement [facility] Urea nitrogen [Mass/volume] in Serum or Plasma [facility] Immunizations Immunization Date Immunization Notes Care Provider Chirag samuels 07-15-2024 influenza, high dose seasonal, preservative-free Jeanette Schaefferlogshai 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 Work Phone: [facility] 07-15-2024 influenza virus vaccine, unspecified formulation Girish Lemos MD Work Phone: [facility] 06-22-2023 influenza (HD-IIV4) vaccine, age 65+ yr, high dose, quadrivalent, PF (FLUZONE HIGH-DOSE) Jeanette Podlogar 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 Work Phone: [facility] 06-22-2023 influenza virus vaccine, unspecified formulation Girish Lemos MD Work Phone: [facility] 08-22-2022 influenza, high-dose , quadrivalent vaccine (FLUZONE HIGH DOSE QUADRIVALENT) Jeanette Podlogar 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 Work Phone: [facility] 08-22-2022 pneumococcal (PCV20) vaccine, 20 valent (PREVNAR 20) Jeanette Podlogar 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 Work Phone: [facility] 08-22-2022 pneumococcal Conjuga te, unspecified formulation Jeanette Podlogar 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 Work Phone: [facility] Work Phone: 11-24-2020 COVID-19 vaccine, fu ll dose (MODERNA) Girish Lemos MD Work Phone: [facility] 10-27-2020 COVID-19 vaccine, fu ll dose (MODERNA) Girish Lemos MD Work Phone: [facility] 07-17-2020 influenza, injectabl e, quadrivalent, preservative free [facility] 07-17-2020 influenza, seasonal, injectable Dr. Fabricio Lemos Work Phone: [facility] 07-17-2020 influenza, seasonal, injectable, preservative free Girish Lemos MD Work Phone: [facility] Work Phone: 04-09-2020 pneumococcal polysaccharide vaccine, 23 valent Girish Lemos MD Work Phone: [facility] 07-02-2019 influenza, injectabl e, quadrivalent, contains preservative Girish Lemos MD Work Phone: [facility] 07-02-2018 influenza, injectabl e, quadrivalent, contains preservative Girish Lemos MD Work Phone: [facility] 07-02-2018 tetanus and diphther ia toxoids, adsorbed, preservative free, for adult use (5 Lf of tetanus toxoid and 2 Lf of diphtheria toxoid) Girish Lemos MD Work Phone: [facility] 06-15-2017 influenza, injectabl e, quadrivalent, contains preservative Girish Lemos MD Work Phone: [facility] Work Phone: 07-24-2016 influenza, injectabl e, quadrivalent, contains preservative Girish Lemos MD Work Phone: [facility] Work Phone: 08-16-2015 influenza, seasonal, injectable Girish Lemos MD Work Phone: [facility] Work Phone: 06-17-2014 influenza, injectabl e, quadrivalent, preservative free Girish Lemos MD Work Phone: [facility] Work Phone: 05-18-2014 influenza, seasonal, injectable Girish Lemos MD Work Phone: [facility] Work Phone: 09-17-2012 influenza, seasonal, injectable Girish Lemos MD Work Phone: [facility] Work Phone: 09-17-2010 pneumococcal polysaccharide vaccine, 23 valent Girish Lemos MD Work Phone: [facility] Work Phone: 09-17-1992 tetanus and diphther ia toxoids, adsorbed, preservative free, for adult use (5 Lf of tetanus toxoid and 2 Lf of diphtheria toxoid) Girish Lemos MD Work Phone: [facility] Work Phone: Payers Date Payer Category Payer Unknown [id number] 2024 Self-pay [id number] 2022 Medicare (Managed Care) MMO MEDADVANTAGE HMO [id number] 2020 Medicare [id number] 2018 Medicare MMO MEDICARE MMO MEDADVANTAGE PPO [id number] 2018-Present [phone] [address] [place] [address] O [id number]. [id number] 2018 Medicare [id number]. [id number]. [id number] 2013 Unknown [id number] 1955 Unknown [id number] 2.16.840.1.205571.3.579.2. 903 1954 Unknown [id number] 2.16.840.1.697379.3.579.2. 903 1954 Unknown [id number] 2.16.840.1.770256.3.579.2. 903 1954 Unknown [id number] 2.16.840.1.369552.3.579.2. 651 1954 Unknown [id number] 2.16.840.1.798586.3.579.2. 651 1954 Unknown [id number] 2.16.840.1.436787.3.579.2. 651 Medicare [id number] Unknown [id number] 2.16.840.1.058543.3.579.2. 462 Unknown [id number] 2.840.1.231500.3.579.2. 462 Unknown [id number] 2.840.1.566339.3.579.2. 462 Unknown [id number] 2.840.1.013026.3.579.2. 462 Unknown [id number] 2.840.1.455542.3.579.2. 462 Unknown [id number] 2.840.1.938837.3.579.2. 462 Unknown [id number] 2.840.1.933347.3.579.2. 462 Unknown [id number] 2.840.1.754367.3.579.2. 462 Unknown [id number] 2.840.1.912774.3.579.2. 462 Unknown [id number] 2.840.1.111072.3.579.2. 462 Unknown [id number] 2.840.1.512348.3.579.2. 462 Unknown [id number] 2.840.1.160495.3.579.2. 462 Unknown [id number] 2.16.840.1.325584.3.579.2. 462 Unknown [id number] 2.16.840.1.846263.3.579.2. 462 Unknown [id number] 2.16.840.1.294160.3.579.2. 462 Unknown [id number] 2.16840.1.028965.3.579.2. 462 Unknown [id number] 2.16.840.1.420437.3.579.2. 462 Unknown [id number] 2.16.840.1.217561.3.579.2. 462 Unknown [id number] 2.16.840.1.339462.3.579.2. 462 Unknown [id number] 2.16.840.1.957721.3.579.2. 462 Unknown [id number] 2.16.840.1.937305.3.579.2. 462 Unknown [id number] 2.16.840.1.421746.3.579.2. 462 Unknown [id number] 2.16840.1.350286.3.579.2. 462 Unknown [id number] 2.16.840.1.024988.3.579.2. 462 Unknown [id number] 2.840.1.763378.3.579.2. 462 Unknown [id number] 2.16840.1.441608.3.579.2. 462 Unknown [id number] 2.16840.1.019006.3.579.2. 462 Unknown [id number] 2.16.840.1.482300.3.579.2. 462 Unknown [id number] 2.16.840.1.608482.3.579.2. 462 Unknown [id number] 2.16.840.1.619574.3.579.2. 462 Unknown [id number] 2.16.840.1.055791.3.579.2. 462 Unknown [id number] 2.16.840.1.983878.3.579.2. 462 Unknown [id number] 2.16.840.1.073238.3.579.2. 462 Unknown [id number] 2.16.840.1.520562.3.579.2. 462 Unknown [id number] 2.16.840.1.889952.3.579.2. 462 Unknown [id number] 2.16.840.1.356626.3.579.2. 462 Unknown [id number] 2.16.840.1.164694.3.579.2. 462 Unknown [id number] 2.16.840.1.750215.3.579.2. 462 Unknown [id number] 2.840.1.229703.3.579.2. 462 Social History Date Type Detail Facility Start: 01-05-2022 End: 06-13-2023 Tobacco smoking status [facility] Unknown if ever smoked [facility] Start: 07-22-2020 None [facility] Start: 07-16-2020 Cigarettes [facility] Start: 1955 Sex Assigned At Female [facility] Start: 11-14-2017 End: 07-15-2024 Tobacco smoking status NYIS Ex-smoker [facility] Start: 08-14-1967 End: 08-14-2016 History of tobacco use Current smoker [facility] Start: 08-14-1967 End: 08-14-2016 History of tobacco use Cigarette Smoker [facility] Start: 11-14-2017 End: 01-24-2023 Cigarettes smoked current (pack per day) - Reported 1 [facility] Work Phone: Start: 11-14-2017 End: 07-15-2024 Tobacco use and exposure Smokeless tobacco non-user [facility] Start: 11-25-2021 End: 01-13-2025 Alcohol intake Current non-drinker of alcohol (finding) [facility] Start: 1955 Sex Assigned At Not on file [facility] Start: 10-16-2021 End: 03-23-2022 Exposure to SARS-CoV-2 (event) Not sure [facility] Start: 01-24-2023 End: 03-21-2023 Tobacco use panel [facility] Work Phone: National Score (1-100), lower number is lower risk 72 [facility] Work Phone: Start: 11-23-2024 End: 01-10-2025 Sex Female (finding) [facility] NEGATED: Highlighted row Not [facility] Medical Equipment Procedure Code Equipment Code Equipment Origin al Text Equipment Identifier Dates Insertion, vascular access port ([id number]) [id number] FDA Start: 12-12-2024 Goals Date Patient Goal Desired Activity /State Functional Status Date Assessment Result Facility 01-10-2025 Functional status Ambulates [facility] Work Phone: 11-15-2024 Functional status Ambulates;Up ad joselito [facility] Work Phone: Mental Status Date Assessment Result Facility 02-16-2025 Cognitive function Voice/Name [facility] Work Phone: 01-10-2025 Cognitive function Voice/Name [facility] Work Phone: 12-12-2024 Cognitive function Awake;Alert [facility] Work Phone: 12-12-2024 Cognitive function Voice/Name [facility] Work Phone: 11-24-2024 Cognitive function Voice/Name [facility] Work Phone: 11-23-2024 Cognitive function Awake;Alert;A ppropriate;Follow s Commands [facility] Work Phone: 11-15-2024 Cognitive function Voice/Name [facility] Work Phone: 09-13-2022 Cognitive function Level Of Cons ciousness Awake;Alert;Appropriate;Follow s Commands [facility] Work Phone: Clinical Notes 11-25-2021 to 04-15-2025 Telephone Encounter - Jeanette Li - 04/15/2025 9:28 AM EDTTelephone Encounter - Jeanette Li - 04/15/2025 9:28 AM EDTTelephone Encounter - Ney Mitchell LPN - 03/31/2025 1:48 PM EDT Note Date & Type Note Facility 04-15-2025 Telephone encounter Note Patient has been identified by name and date of : Yes Patient phones for refill(s): Requested Prescriptions Pending Prescriptions Disp Refills losartan (COZAAR) 50 mg tablet 45 tablet 1 Sig: Take 0.5 tablets by mouth once daily. Date of last office visit in primary care: 01/26/2025 Date of next office visit in primary care: Visit date not found Please advise. Thank you. Jeanette Li. [facility] 04-15-2025 Miscellaneous Notes Patient has been identified by name and date of : Yes Patient phones for refill(s): Requested Prescriptions Pending Prescriptions Disp Refills losartan (COZAAR) 50 mg tablet 45 tablet 1 Sig: Take 0.5 tablets by mouth once daily. Date of last office visit in primary care: 01/26/2025 Date of next office visit in primary care: Visit date not found Please advise. Thank you. Jeanette Li. documented in this encounter [facility] 04-05-2025 Radiology Diagnostic study note [facility] Imaging Services [address] [place] [address] [id number] Spine Lumbar WITH Contrast MR#: [id number] Acct: [id number] Name: BETSY RODRIGEZ Rep #: [id number] : 1955 F 69 From: Catherine Castaneda MD PCP: Dr. Fabricio Lemos MD Status: REG ER Study:Spine Lumbar WITH Contrast Date of Exam : 04/05/25 Exam# [id number] Ordering Dr: Kimberly Lynch DO PROCEDURE: SPINE [...] and pelvis 02/17/2025 FINDINGS: There are 5 ysf-esq-lbzvewo lumbar-type vertebral bodies. Lumbar vertebral bodyheights and [...] canal narrowing at any level. Reading Location: [id number] CC: Dr. Fabricio Lemos MD; Dr. Juan Lynch DO ~ Automotive Services Manager: Signed [facility] 03-31-2025 Telephone encounter Note Rx on 01/13/25 was a med update. Rx pending. Please review and file. Ney Mitchell LPN [facility] 03-31-2025 Miscellaneous Notes Rx [...] 2025 11:08 AM documented in this encounter [facility] 03-31-2025 Telephone encounter Note Prescription is listed as being sent on 01-13-25, but there is no acknowledgement. [facility] 03-31-2025 Telephone encounter Note [...] Lindsey Royal March 31, 2025 11:08 AM [facility] 02-24-2025 Progress note Note Date/Time February 24, 2025 9:40am [facility] Department [place] [address] OFFICE VISIT Date of Service: 02/24/25 0909 MR#: [id number] Acct: [id number] Name: BETSY RODRIGEZ Rep #: [id number] : 1955 From: Sherice ramirez MD Age/Sex: 69/F Location: [facility] [place] Status: Signed HPI Subjective Date of Service 02/24/25 Chief Complaint Metastatic lung cancer History of Present Illness 69-year-old female ex-smoker who presented with rapid progression of right upperquadrant pain, anorexia, and weight loss. October 31, 2024 CT scan of the chest ([facility]): Left upper lobe perihilar [...] prednisone Adverse Reaction (Verified 02/24/25 09:13) Other Bkjuhpo-XWK-CyN Reductase Inhibitor (Fpdhlsx-Zmu-Jyo Reductase Inhibitor) Adverse Reaction (Verified 02/24/25 09:13) [...] no focal motor deficits Coordination / Balance: yuopkj-gt-vrrj test normal Speech: speech normal Gait (Neuro): [...] and plan discussed. Sherice Fernandez MD Senior Telecommunications Specialist, [facility] Divisions of Medical Oncology & Hematology Department of Internal Medicine [place] [id number] This note was generated using a voice [...] delgadillo MD> Date _ Sher[facility] Fern[facility] Signature: Date (if applicable) CC: ~ [place] [employer] Work Phone: 1(450) 941-921106-06-2025 Radiology Diagnostic study [facility]06-02-2025 Procedure [facility]05-28-2025 Telephone encounter Note* Telephone Encounter - Lindsey [...] Lindsey Royal February 11, 2025 8:40 AM [facility]05-28-2025 Miscellaneous Notes* Telephone Encounter [...] 11, 2025 8:40 AM documented in this [facility]2025 [facility] [address] [address] OFFICE VISIT Date of Service: 02/03/25 0856 MR#: [id number] Acct: [id number] Name: ELIABETSY Marta Rep #: [id number] : 1955 From: Sherice ramirez MD Age/Sex: 69/F Location: [facility] [place] Status: Signed HPI Subjective Date of Service 02/03/25 Chief Complaint Metastatic lung cancer History of Present Illness 69-year-old female ex-smoker who presented with rapid progression of right upperquadrant pain, anorexia, and weight loss. October 31, 2024 CT scan of the chest ([facility]): Left upper lobe perihilar [...] prednisone Adverse Reaction (Verified 02/03/25 09:01) Other Ljpkobf-SFI-KeX Reductase Inhibitor (Vpafeol-Hin-Kax Reductase Inhibitor) Adverse Reaction (Verified 02/03/25 09:01) [...] no focal motor deficits Coordination / Balance: kqqepg-io-txeh test normal Speech: speech normal Gait (Neuro): [...] and plan discussed. Sherice Fernandez MD Senior Telecommunications Specialist, [facility] Divisions of Medical Oncology & Hematology Department of Internal Medicine [place] [id number] This note was generated using a voice [...] leona ERNANDEZ> Date _ Sherice Fern[facility] Signature: Date (if applicable) CC: ~ [facility]05-20-2025 Progress note Author Sherice Fernandez [facility] Services Note Date/Time February 03, 2025 9:29a m [facility] [address] [address] OFFICE VISIT Date of Service: 02/03/25 0856 MR#: [id number] Acct: [id number] Name: BETSY RODRIGEZ Rep #: [id number] : 1955 From: Sherice ramirez MD Age/Sex: 69/F Location: [facility] Status: Signed HPI Subjective Date of Service 02/03/25 Chief Complaint Metastatic lung cancer History of Present Illness 69-year-old female ex-smoker who presented with rapid progression of right upperquadrant pain, anorexia, and weight loss. October 31, 2024 CT scan of the chest ([facility]): Left upper lobe perihilar [...] prednisone Adverse Reaction (Verified 02/03/25 09:01) Other Mfvjlkf-FAR-GaO Reductase Inhibitor (Gxvzgtj-Cgm-Lpm Reductase Inhibitor) Adverse Reaction (Verified 02/03/25 09:01) [...] no focal motor deficits Coordination / Balance: szkxpl-so-uuuk test normal Speech: speech normal Gait (Neuro): [...] and plan discussed. Sherice Fernandez MD Senior Telecommunications Specialist, [facility] Divisions of Medical Oncology & Hematology Department of Internal Medicine [place] [id number] This note was generated using a voice [...] Cosigner Signature: Date (if applicable) CC: ~ [place] [employer] Work Phone: 1(939) 831-550005-13-2025 Telephone encounter Note* Telephone Encounter - Rosario Haddad LPN - 01/27/2025 12:28 PM EDT Phoned patient and reviewed results with her. She voiced understanding. Rosario Haddad LPN [facility]05-13-2025 Miscellaneous Notes* Telephone Encounter [...] and call with worseningsymptoms. documented in this encounter[facility] Telephone encounter Note * Telephone Encounter - Rosario Haddad LPN - 01/27/2025 12:27 PM EDT ----- Message from Girish Lemos MD sent at 01/27/2025 7:13 AM EDT ----- Negative for COVID/flu/RSV. Continue supportive care as discussed in office and call with worseningsymptoms. [facility]05-12-2025 Telephone encounter Note* Telephone Encounter - Rosario Haddad LPN - 01/26/2025 3:06 PM EDT Phoned patient and updated her with results. Patient voiced understanding. Rosario Haddad LPN [facility]05-12-2025 Miscellaneous Notes* Telephone Encounter [...] Continue treatment as discussed. documented in this encounter[facility]25 Telephone encounter Note * Telephone Encounter - Rosario Haddad LPN - 01/26/2025 3:05 PM EDT ----- Message from Girish Lemos MD sent at 01/26/2025 2:40 PM EDT ----- Patient's CXR is negative for pneumonia. Otherwise, stable xray. Continue treatment as discussed. [facility]05-12-2025 History of Present illness [...] PATIENT PRESENTS WITH AN IMPLANTABLE OR ATTACHED HEAD GOLF PROFESSIONAL: No RADIOLOGY DEPARTMENT: General X-ray: Exam(s) Completed: Chest X-Ray PERIPHERAL IV DATA: Not applicable SIGNED BY: GM Xiao) January 26, 2025 1:47 PM documented in this encounterCoshocton [facility]05-12-2025 NoteHNO ID: [id number] Author: ANTONIA SIMMS RT (R) Service: Radiology [...] PATIENT PRESENTS WITH AN IMPLANTABLE OR ATTACHED HEAD GOLF PROFESSIONAL: No RADIOLOGY DEPARTMENT: General X-ray: Exam(s) Completed: Chest X-Ray PERIPHERAL IV DATA: Not applicable SIGNED BY: RT Dameon(Coy) January 26, 2025 1:47 [facility]05-12-2025 OrsgMFEM-PCG-1 (AGENT OF COVID-19) RNA: Not detected INFLUENZA A RNA: Not detected INFLUENZA B RNA: Not detected RESPIRATORY SYNCYTIAL VIRUS (RSV) RNA: Not detectedFairfield Medical CenterComment on above:Performed By: #### [id number] ####[facility] LABCLIA [id number] [address] OF [id number] Instructions* Patient Instructions* Bursley, Christopher B, MD - 01/26/2025 1:38 PM EDT Take the prescribed Tessalon Perles as needed for your cough (the order was sent to [facility] in [place]). For additional cough relief, you may use nktt-vna-rhvuzov cough drops or Delsym if desired. For your sore throat, try drinking tea with honey, gargling warm salt water, and using ncfo-nnd-vvpopam chloraseptic sprays or lozenges. Drink plenty of [...] return for further evaluation. documented in this encounterCoshocton [facility]05-12-2025 NoteHNO ID: [id number] Author: GIRISH LEMOS MD Service: ? Author Type: Physician Type: Progress Notes Filed: 01/26/2025 13:43 Note Text: Chief Complaint Patient presents with: Cough: Non-productive Throat Problem: Hoarse and sore sinus congestion with occasional green mucus Perspiration Recording using Path[employer] software for draft documentation of the visit was discussed with the patient/authorized graphic art 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 Patient/authorized graphic art sales representative agreed to proceed HPI Betsy [...] III (moderate) (HCC) Colon polyp tubular adenoma [address] 07/16 to 08/17 DDD (degenerative disc [...] Known Problems Brother Stroke Maternal Grandmother or HI, patient unsure Coronary Artery Disease Maternal Grandfather Alcohol abuse Paternal Grandfather Patient Allergies ALLERGIES Allergen Reactions Meagan Inhibitors Rash Codeine Vomiting, Other: See Comments Headache Remeron [Mirtazapin* Other: See Comments Fatigue Mhwyqrg-Jhz-Xqg Red* Myalgia [place] Unknown Zetia [Ezetimibe] Myalgia Current Medications Current [...] hours as needed for pain. mv,jaci,iron,mn/folic acid/chol (FFQO-QENQ-ONXFX, PABA, ORAL) Take 1 tablet by mouth [...] day. No current facility-administe (more content not included)...[facility]05-12-2025 History of Present illness Narrative* Girish Lemos MD - 01/26/2025 1:06 PM EDT Chief Complaint Patient presents with: Cough: Non-productive Throat Problem: Hoarse and sore sinus congestion with occasional green mucus Perspiration Recording using Pathable software for draft documentation of the visit was discussed with the patient/authorized graphic art 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 mv,jaci,iron,mn/folic acid/chol (XPLO-YAWR-PCVJI, PABA, ORAL) Take 1 tablet by mouth [...] Perles for cough management; advised use of ddsc-lng-hfpaolr cough drops or Delsym. - Recommended tea with honey, warm salt water gargles, and quan-eya-jvjxzat Chloraseptic sprays or lozenges for sore throat. [...] recovery from current illness. documented in this [facility] NoteHNO ID: [id number] Author: GIRISH LEMOS MD Service: ? Author Type: Physician Type: Progress Notes Filed: 01/13/2025 10:35 Note Text: Chief Complaint Patient presents with: Hospital F/U [facility] Betsy Rodrigez is a 69 year old female who presents here today for Hospital discharge follow up. 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 Johnson Dysphagia Dr. 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) Obesity (BMI 30.0-34.9) Other pulmonary embolism without acute cor pulmonale (HCC) [facility] [place] [facility] [place] Requiring intubation Small cell lung cancer [...] Known Problems Brother Stroke Maternal Grandmother or HI, patient unsure Coronary Artery Disease Maternal Grandfather Alcohol abuse Paternal Grandfather Patient Allergies ALLERGIES Allergen Reactions Meagan Inhibitors Rash Codeine Vomiting, Other: See Comments Headache Remeron [Mirtazapin* Other: See Comments Fatigue Dyaxece-Jey-Ycf Red* Myalgia [place] Unknown Zetia [Ezetimibe] Myalgia Current Medications Current [...] hours as needed for pain. mv,jaci,iron,mn/folic acid/chol (GNKP-GCMI-DTHOY, PABA, ORAL) Take 1 tablet by mouth once daily. (Patient not taking: Reported on 08/22/2022) Minoxidil 2 % external solution Apply 1 mL to affected area twice daily. albuterol (PROVENTIL) 2.5 (more content not included)...[facility]04-29-2025 History of Present illness Narrative* Girish Lemos MD - 01/13/2025 9:08 AM EDT Chief Complaint Patient presents with: Hospital F/U [facility] Betsy Rodrigez is a 69 year old female who presents here today for Hospital discharge follow up. 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 mv,jaci,iron,mn/folic acid/chol (KYJS-UZMI-CBKXO, PABA, ORAL) Take 1 tablet by mouth [...] which included preparing to see the patient, fooa-uk-warl patient care, completing clinical documentation, obtaining and/or reviewing separately obtained history, performing a medically appropriate examination, counseling and educating the pat ient/family/caregiver, and ordering medications, tests, or procedures. Girish Lemos MD documented in this encounterCosho[facility]04-26-2025 Discharge summary [facility] Medical Records Department [address] [place] [address] Discharge Summary 01/10/25 1428 MR#: [id number] Acct: [id number] Name: BETSY RODRIGEZ Rep #:[id number] : 1955 69 From: Jassi Schneider PCP: Dr. Fabricio Lemos MD Status :ADM FARIBA Location: [place] [address] Providers Date of Admission: 01/09/25 Date of [...] 01/10/25 14:09 RMA (Rec: 01/10/25 14:09 RMA [id number]) Nutrition Malnutrition Evidence of Yes Malnutrition Exists [...] 93.2 H, Lymph % (Auto) 4.7 L, Coleman % (Auto) 0.2, Eos % (Auto) 0.0, [...] relate to congestion and edema. Reading Location: [facility] Echocardiogram 01/09/25 20:22 Interpretation Summary The [...] Self Care Charges/Coding Visit Charges Inpatient E&M: 31548 Disch Hosp >30min 01/10/25 1439 Cosigner Signature (if applicable): CC: Dr. Fabricio Lemos MD; Dr. Jassi Borden MD~ Signed [facility]04-26-2025 Discharge summary [facility] Medical Records Department [address] [place] [address] Instructions for Home/Discharge Instructions 01/10/25 1425 MR#: [id number] Acct: [id number] Name: BETSY RODRIGEZ Rep #:[id number] : [...] MD; Dr. Estrella Cabezas MD ~ Signed [facility]26[facility] Discharge summary Author Austin Mack [facility] Note Date/Time January 09, 2025 11: 20pm [facility] Medical Records Department [address] [place] [address] Emergency Department Summary 01/09/25 MR#: [id number] Acct: [id number] Name: BETSY RODRIGEZ Rep #:[id number] : 1955 69 From: Austin Mack MD PCP: Dr. Fabricio Lemos MD Status :ADM FARIBA Location: [place] [address] HPI History of Present Illness Chief Complaint: [...] reaction to her white blood cell booster. [facility] Medical History Hypothyroidism GERD [...] Allergy prednisone AdvReac Other Verified 01/09/25 15:36 Yjznjzt-RXT-FeJ Reductase AdvReac cramps Verified 01/09/25 15:36 Inhibitor (Kfujvgu-Kbt-Xuk Reductase Inhibitor) Family History Mother Cancer Hx [...] 93.2 H Lymph % (Auto) 4.7 L Coleman % (Auto) 0.2 Eos % (Auto) 0.0 [...] relate to congestion and edema. Reading Location: [facility] Discharge Plan Dx/Rx/DC Orders Clinical Impression: Chest pain, Shortness of breath, Small cell lung cancer, Elevated troponin Disposition Disposition: Acute Care Hospital [facility] Discharge Date/Time: 01/09/25 20:00 What to do if you have Problems For any increased pain, shortness of breath, bleeding, nausea or vomiting, chestpain, or any unexpected problems, contact your Primary Care Provider. Call [facility] ([phone]) or report to the closest Emergency Room. Call 911 if necessary. 01/09/252319 <Electronically signed by Autsin Mack MD> Cosigner Signature (if applicable): CC: Dr. Fabricio Lemos MD ~ Signed [facility] Work Phone: 1(563) 382-835404-25-2025 Discharge summary [facility] Medical Records Department [address] [place] [address] Emergency Department Summary 01/09/25 MR#: [id number] Acct: [id number] Name: BETSY RODRIGEZ Rep #:[id number] : 1955 69 From: Austin Mack MD PCP: Dr. Fabricio Lemos MD Status :ADM FARIBA Location: [address] History of Present Illness Chief Complaint: [...] reaction to her white blood cell booster. [facility] Medical History Hypothyroidism GERD [...] Allergy prednisone AdvReac Other Verified 01/09/25 15:36 Bxwnwqh-BAM-ZkV Reductase AdvReac cramps Verified 01/09/25 15:36 Inhibitor (Xyggkgr-Jpi-Dfa Reductase Inhibitor) Family History Mother Cancer Hx [...] Std Deviation 60.6 H RDW Coeff of Rbittanie 18.8 H Plt Count 442 MPV 9.9 Immature Gran % (Auto) 1.800 H Neut % (Auto) 93.2 H Lymph % (Auto) 4.7 L Coleman % (Auto) 0.2 Eos % (Auto) 0.0 [...] relate to congestion and edema. Reading Location: [facility] Discharge Plan Dx/Rx/DC Orders Clinical Impression: Chest pain, Shortness of breath, Small cell lung cancer, Elevated troponin Disposition Disposition: Acute Care Hospital [facility] Discharge Date/Time: 01/09/25 20:00 What to do if you have Problems For any increased pain, shortness of breath, bleeding, nausea or vomiting, chestpain, or any unexpected problems, contact your Primary Care Provider. Call [facility] ([phone]) or report tothe closest Emergency Room. Call 911 if necessary. 01/09/252319 Cosigner Signature (if applicable): CC: Dr. Fabricio Lemos MD ~ Signed [facility]04-25-2025 Progress note Author [facility] Note Date/Time January 09, 2025 8:1 7pm [facility] Medical Records Department [address] [place] [address] Progress Note - Hospitalist 01/09/252015 MR#: [id number] Acct: [id number] Name: BETSY RODRIGEZ Rep #:[id number] : 1955 69 From: Estrella Cabezas MD PCP: Dr. Fabricio Lemos MD Status :ADM FARIBA Location: [place] [address] Hospitalist Note BNP elevated, will give dose of Lasix 01/09/252016 <Electronically signed by Estrella Cabezas MD> Cosigner Signature (if applicable): CC: ~ Signed [facility] Work Phone: 1([phone]) 684-831904-25-2025 History and physical note Author [facility] Note Date/Time January 09, 2025 8:0 5pm [facility] Medical Records Department [address] [facility] [place] [address] H&P Exam - Hospitalist 01/09/251930 MR#: [id number] Acct: [id number] Name: BETSY RODRIGEZ Rep #:[id number] : 1955 69 From: Estrella Cabezas MD PCP: Dr. Fabricio Lemos MD Status :ADM FARIBA Location: [place] [address] 1 HPI - General General Date of Admission: 01/09/25 Date of Service: 01/09/25 Chief Complaint: episode of chest pain HPI Narrative BETSY RODRIGEZ, is a 69 F with a history of suspected lung carcinoma with metastasis to liver and bone, GERD, ARMANDO, hypothyroidism, hypertension, and chronic pain pain related to her cancer who presented to [facility] ED 01/09/2025 due to an episode [...] or cough, no bowel or bladder changes. [facility] Medical History (Updated 01/09/25 @ 19:35 [...] Allergy prednisone AdvReac Other Verified 01/09/25 15:36 Iddonbe-QZL-NoL Reductase AdvReac cramps Verified 01/09/25 15:36 Inhibitor (Mjoysva-Ixm-Qiu Reductase Inhibitor) Family History Mother Cancer Hx [...] 93.2 H, Lymph % (Auto) 4.7 L, Coleman % (Auto) 0.2, Eos % (Auto) 0.0, [...] relate to congestion and edema. Reading Location: [facility] Assessment & Plan Assessment/Plan (1) Chest [...] Cabezas MD Charges/Coding Visit Charges Inpatient E&M: 49239 Init Hosp L2 01/09/252004 <Electronically signed by Estrella Cabezas MD> Cosigner Signature (if applicable): CC: Dr. Fabricio Lemos MD; Dr. Estrella Cabezas MD~ Signed [facility] Work Phone: 1(636) 941-122304-25-2025 Progress note [facility] Medical Records Department [address] [place] [address] Progress Note - Hospitalist 01/09/252015 MR#: [id number] Acct: [id number] Name: BETSY RODRIGEZ Rep #:[id number] : 1955 69 From: Estrella Cabezas MD PCP: Dr. Fabricio Lemos MD Status :ADM FARIBA Location: [place] [address] Hospitalist Note BNP elevated, will give dose of Lasix 01/09/252016 Cosigner Signature (if applicable): CC: ~ Signed [facility]04-25-2025 History and physical note [facility] Medical Records Department [address] [place] [address] H&P Exam - Hospitalist 01/09/25 193 MR#: [id number] Acct: [id number] Name: ELIABETSY M Rep #:[id number] : 1955 69 From: Estrella Cabezas MD PCP: Dr. Fabricio Lemos MD Status :ADM FARIBA Location: [place] [address] HPI - General General Date of Admission: 01/09/25 Date of Service: 01/09/25 Chief Complaint: episode of chest pain HPI Narrative BETSY RODRIGEZ, is a 69 F with a history of suspected lung carcinoma with metastasis to liver andbone, GERD, ARMANDO, hypothyroidism, hypertension, and chronic pain pain related to her cancer who presented to [facility] ED 01/09/2025 due to an episode [...] or cough, no bowel or bladder changes. [facility] Medical History (Updated 01/09/25 @ 19:35 [...] Allergy prednisone AdvReac Other Verified 01/09/25 15:36 Etjfywa-BJO-AyQ Reductase AdvReac cramps Verified 01/09/25 15:36 Inhibitor (Mywrdec-Nst-Akw Reductase Inhibitor) Family History Mother Cancer Hx [...] 93.2 H, Lymph % (Auto) 4.7 L, Coleman % (Auto) 0.2, Eos % (Auto) 0.0, [...] relate to congestion and edema. Reading Location: [facility] Assessment & Plan Assessment/Plan (1) Chest [...] Cabezas MD Charges/Coding Visit Charges Inpatient E&M: 16607 Init Hosp L2 01/09/252004 Cosigner Signature (if applicable): CC: Dr. Fabricio Lemos MD; Dr. Estrella Cabezas MD~ Signed [facility]04-25-2025 Radiology Diagnostic study note [facility] Imaging Services [address] [place] [address] Chest 1 View (Portable) MR#: [id number] Acct: [id number] Name: BETSY RODRIGEZ Rep #: [id number] : 1955 F 69 From: Tasha Fajardo MD PCP: Dr. Fabricio Lemos MD Status: REG ER Study:Chest 1 View (Portable) Date of Exam: 01/09/25 Exam# [id number] Ordering Dr: Austin Mack MD EXAM: XR [...] relate to congestion and edema. Reading Location: [facility] CC: Dr. Austin Mack MD; Dr. Fabricio Lemos MD ~ Automotive Services Manager: Signed [facility]04-01-2025 Evaluation note* Diagnosis Onset Date Resolution Status [...] is present chronic April 06, 2025 9:34am [facility] Work Phone: 1(491) 196-815403-31-2025 Telephone encounter Note* Telephone Encounter - Marta [...] Meadows RN December 15, 2024 9:14 AM [facility]03-31-[facility] Miscellaneous Notes* Telephone Encounter [...] 15, 2024 9:14 AM documented in this [facility]03-28-2025 Consult note Author Lennox Schaefer [facility] Note Date/Time December 12, 2024 12: 33pm [facility] Medical Records Department [address] [place] [address] Anesthesia Postop Eval II 12/12/24 1233 MR#: [id number] Acct: [id number] Name: BETSY RODRIGEZ Rep #:[id number] : 1955 69 From: Lennox Schaefer MD PCP: Dr. Fabricio Lemos MD Status :REG SDC Y Race: C Location: [place] [address] Anesthesia Postop Eval I Sum Postop Eval Completion status Anesthesia document: Postop Eval 1 completed: Yes Anesthesia Postop Eval I Summary Anesthesia Postop Eval I Summary: Anesthesia Postop Eval I: Assessment Summary Airway patent Yes 12/12/24 12:31 AXMINSTER WEAVER.TMEN Spontaneous unlabored No 12/12/24 12:31 AXMINSTER WEAVER.TMEN respirations Mental status nausea No 12/12/24 12:31 AXMINSTER WEAVER.TMEN Vomiting No 12/12/24 12:31 AXMINSTER WEAVER.TMEN Anesthesia Postop Eval I: Fluid Summary Crystalloid volume administer 500 12/12/24 12:31 AXMINSTER WEAVER.TMEN (ml) Colloids volume administered ( ml) Blood Product volume administered (ml) Total IV fluid infused 500 12/12/24 12:31 AXMINSTER WEAVER.TMEN Anesthesia Postop Eval I: Summary Notes Anesthesia Complication No 12/12/24 12:31 AXMINSTER WEAVER.TMEN Anesthesia Complication Comment: Post-operative progress note Anesthesia: Postop Eval II Evaluation Mental status: Awake Pain Level: 0 nausea: No Vomiting: No 12/12/24 1233 <Electronically signed by Lennox Schaefer MD > Date _ Lennox Schaefer MD Cosigner Signature: Date CC: ~ Signed [facility] Work Phone: [phone]) 657-700803-28-2025 Consult note Author Nohemi Andres [facility] Note Date/Time December 12, 2024 12: 31pm [facility] Medical Records Department [address] [place] [address] Anesthesia Postop Eval I 12/12/24 1230 MR#: [id number] Acct: [id number] Name: BETSY RODRIGEZ Rep #:[id number] : 1955 69 From: Nohemi khan CRNA PCP: Dr. Fabricio Lemos MD Status :REG ALC Y Race: C Location: [place] [address] Anesthesia: Postop Eval I Current Vital Signs [...] Perez ace, CRNA> Date _ Nohemi Andres AXMINSTER WEAVER Cosigner Signature: Date CC: ~ Signed [facility] Work Phone: 1(712) 714-671003-28-2025 Discharge summary Author Yeimi Sorto [facility] Note Date/Time December 12, 2024 12: 24pm [facility] Medical Records Department [address] [place] [address] Instructions for Home/Discharge Instructions 12/12/24 1222 MR#: [id number] Acct: [id number] Name: BETSY RODRIGEZ Rep #:[id number] : 1955 69 From: Yeimi Sorto MD PCP: Dr. Fabricio Lemos MD Status :REG [facility] Discharge Instructions Procedure Port-A-Cath Diet Discharge Diet: [...] Care Provider: Fabricio Lemos Instructions Print Language: Belizean Discharge Orders/Prescriptions Prescriptions: Continued (DME) Disability Placard [...] CC: Dr. Fabricio Lemos MD ~ Signed [facility] Work Phone: 1(430) 619-750803-28-2025 History and physical note Author Yeimi [facility] Note Date/Time December 12, 2024 11: 40am [facility] Medical Records Department [address] [place] [address] History & Physical Exam 12/12/24 1138 MR#: [id number] Acct: [id number] Name: BETSY RODRIGEZ Rep #:[id number] : 1955 69 From: Yeimi Sorto MD PCP: Dr. Fabricio Lemos MD Status :[facility] Location: [place] [address] History and Physical Date of Admission: 12/12/24 Date of Service: 12/10/24 MR#: [id number] Acct: [id number] Name: BETSY RODRIGEZ Rep #: [id number] : 1955 Provider: Dr. Yeimi Sorto MD Age/Sex: 69/F Location: [facility] Status: Signed Intake Vital Signs 12/09/2509:45 12/09/2510:48 [...] Food Allergyprednisone Adverse Reaction (Verified 12/11/24 08:17) JnejmRtuowjv-HEC-MiX Reductase Inhibitor (Xblylvq-Cgc-Qal Reductase Inhibitor) Adverse Reaction (Verified 12/11/24 08:17) [...] you fallen in the past year?: No [facility] Medical History (Updated 12/11/24 @ 09:30 by [...] healthy appearing, comfortable and no acute distress [facility] Head: normocephalic and atraumatic Neck Neck: supple [...] no further questions. Yeimi Sorto M.D. Pager: [phone] [facility] [address] [place] [address], [facility], [address] [place] [address] Office: [phone] Coding Level of Care Code Off vis,new,level [...] MD; Dr. Yeimi Sorto MD ~* Signed [facility] Work Phone: 1(396) 226-353003-28-2025 Consult note Author Lennox Schaefer [facility] Note Date/Time December 12, 2024 11: 14am [facility] Medical Records Department [address] [place] [address] Pre-Anesthesia Evaluation 12/12/24 1113 MR#: [id number] Acct: [id number] Name: BETSY RODRIGEZ Rep #:[id number] : 1955 69 From: Lennox Schaefer MD PCP: Dr. Fabricio Lemos MD Status :REG [facility] Y Race: C Location: [place] [address] ASA Classification* ASA Classification ASA Classification: 3 [...] poss left Anesthesia History Anesthesia History - container coordinator: Anesthesia History - container coordinator Hx Hospitalization Yes: 3-12/11/24 08:45 Any Problems [...] take am of surgery PONV PONV - container coordinator: PONV - container coordinator Female Yes 12/11/24 08:45 HX of Motion [...] 12/12/24 10:51 Respiratory Assessment Respiratory Assessment - container coordinator: Respiratory Tract Infection Hx - container coordinator Hx Respiratory Tract Infection No 12/11/24 08:45 STOP Sleep Apnea STOP Sleep Apnea - container coordinator: STOP Sleep Apnea - container coordinator Hx Hypertension Yes: MED 12/11/24 08:45 Hx [...] Tobacco Use History Tobacco Use History - container coordinator: Tobacco Use History - container coordinator Tobacco Use Smoking Status Former smoker 12/11/24 08:45 Hx Tobacco Use No 12/11/24 08:45 Years Smoking Packs Smoked per Day Smoking Cessation Date was Yes - quit smoking within 15 12/11/24 08:45 within the last 15 years years Hx Smoking Cessation Date 09/17/15 12/11/24 08:45 Hx Smoking Cessation No 12/11/24 08:45 Counseling Hematologic Medial History 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 Hx of Blood Transfusion No 12/11/24 08:45 [...] confused, unrespo /Reproduction History /Reproductive History - container coordinator: /Reproductive Hx- container coordinator Hx Now No 12/11/24 08:45 Gestational Age [...] Allergy prednisone AdvReac Other Verified 12/12/24 10:47 Dafsycy-LNQ-DnH Reductase AdvReac cramps Verified 12/12/24 10:47 Inhibitor (Jcpqyek-Kgk-Brj Reductase Inhibitor) Family History Mother Cancer Hx [...] MD Cosigner Signature: Date CC: ~ Signed [facility] Work Phone: 1(638) 860-725803-28-2025 Radiology Diagnostic study note [facility] Imaging Services [address] [place], [place] [address] Chest 1 View (Portable) MR#: [id number] Acct: [id number] Name: BETSY RODRIGEZ Rep #: [id number] : 1955 F 69 From: Tasha Fajardo MD PCP: Dr. Fabricio Lemos MD Status: REG [facility] Study:Chest 1 View (Portable) Date of Exam: 12/12/24 Exam# [id number] Ordering Dr: Yeimi Sorto MD EXAM: XR [...] edema. Pneumonia cannot be excluded. Reading Location: [facility] CC: Dr. Fabricio Lemos MD; Dr. Yeimi Sorto MD ~ Automotive Services Manager: Signed [facility]03-28-2025 Procedure note [facility] Medical Records Department [address] [place] [address] Operative Report 12/12/24 1219 MR#: [id number] Acct: [id number] Name: BETSY RODRIGEZ Rep #:[id number] : 1955 69 From: Yeimi Sorto MD PCP: Dr. Fabricio Lemos MD Status :REG [facility] Location: [place] [address] Operative Report (Standard) Operative Information Date of Procedure: 12/12/24 Pre-Operative Diagnosis: z45.2, lung cancer Post-Operative Diagnosis: Same Surgery/Procedure Performed: 1. Placement of right IJ Port-A-Cath 2. Use of fluoroscopy 3. Use of ultrasound art specialist: No Type of Anesthesia: MAC/Supplemental RN Documented [...] details: [employer] PowerPort isp M.R.I. 6Fr Lot [id number] Special Medications: Ancef 2 g IV x [...] Lemos MD; Dr. Yeimi Sorto MD~ Signed [facility]03-28-2025 Consult note [facility] Medical Records Department [address] [place] [address] Anesthesia Postop Eval II 12/12/24 1233 MR#: [id number] Acct: [id number] Name: BETSY RODRIGEZ Rep #:[id number] : 1955 69 From: Lennox Schaefer MD PCP: Dr. Fabricio Lemos MD Status :REG [facility] Y Race: C Location: [place] [address] Anesthesia Postop Eval I Sum Postop Eval Completion status Anesthesia document: Postop Eval 1 completed: Yes Anesthesia Postop Eval I Summary Anesthesia Postop Eval I Summary: Anesthesia Postop Eval I: Assessment Summary Airway patent Yes 12/12/24 12:31 [email or web address] [email or web address] Spontaneous unlabored No 12/12/24 12:31 [email or web address] [email or web address] respirations Mental status nausea No 12/12/24 12:31 [email or web address] [email or web address] Vomiting No 12/12/24 12:31 [email or web address] [email or web address] Anesthesia Postop Eval I: Fluid Summary Crystalloid volume administer 500 12/12/24 12:31 [email or web address] [email or web address] (ml) Colloids volume administered ( ml) Blood Product volume administered (ml) Total IV fluid infused 500 12/12/24 12:31 [email or web address] [email or web address] Anesthesia Postop Eval I: Summary Notes Anesthesia Complication No 12/12/24 12:31 [email or web address] [email or web address] Anesthesia Complication Comment: Post-operative progress note Anesthesia: Postop Eval II Evaluation Mental status: Awake Pain Level: 0 nausea: No Vomiting: No 12/12/24 1233 > Date _ Lennox Schaefer MD Cosigner Signature: Date CC: ~ Signed [facility]03-28-2025 Consult note [facility] Medical Records Department [address] [place] [address] Anesthesia Postop Eval I 12/12/24 1230 MR#: [id number] Acct: [id number] Name: BETSY RODRIGEZ Rep #:[id number] : 1955 69 From: Nohemi khan AXMINSTER WEAVER PCP: Dr. Fabricio Lemos MD Status :[facility] Y Race: C Location: [place] [address] Anesthesia: Postop Eval I Current Vital Signs Temperature: 99.0 F Pulse Rate: 82 Blood Pressure: 109/58 Respiratory Rate: 20 Pulse Ox: 91 Assessment Airway patent: Yes Spontaneous unlabored respirations: No nausea: No Vomiting: No Anesthesia Complication: No Fluid Hydration Crystalloid volume administer (ml): 500 Total IV fluid infused: 500 Progress Note Anesthesia document: Postop Eval 1 completed: Yes 12/12/24 1231 meagan AXMINSTER WEAVER> Date _ Nohemi Andres CRNA Cosigner Signature: Date CC: ~ Signed [facility]03-28-2025 Discharge summary [facility] Medical Records Department [address] [place] [address] Instructions for Home/Discharge Instructions 12/12/24 1222 MR#: [id number] Acct: [id number] Name: BETSY RODRIGEZ Rep #:[id number] : 1955 69 From: Yeimi Sorto MD PCP: Dr. Fabricio Lemos MD Status :[facility] Discharge Instructions Procedure Port-A-Cath Diet Discharge Diet: [...] Care Provider: Fabricio Lemos Instructions Print Language: Belizean Discharge Orders/Prescriptions Prescriptions: Continued (DME) Disability Placard [...] CC: Dr. Fabricio Lemos MD ~ Signed [facility]03-28-2025 History and physical note [facility] Medical Records Department [address] [place] [address] History & Physical Exam 12/12/24 1138 MR#: [id number] Acct: [id number] Name: BETSY RODRIGEZ Rep #:[id number] : 1955 69 From: Yeimi Sorto MD PCP: Dr. Fabricio Lemos MD Status :[facility] Location: [place] [address] History and Physical Date of Admission: 12/12/24 Date of Service: 12/10/24 MR#: [id number] Acct: [id number] Name: BETSY RODRIGEZ Rep #: [id number] : 1955 Provider: Dr. Yeimi Sorto MD Age/Sex: 69/F Location: [facility] Status: Signed Intake Vital Signs 12/09/2509:45 12/09/2510:48 [...] Food Allergyprednisone Adverse Reaction (Verified 12/11/24 08:17) HqeiyHjippqq-NDV-DmI Reductase Inhibitor (Iaimetv-Zci-Wir Reductase Inhibitor) Adverse Reaction (Verified 12/11/24 08:17) [...] no further questions. Yeimi Sorto M.D. Pager: [phone] [facility] [address] [place] [address], [facility], [address] [place] [address] Office: [phone] Coding Level of Care Code Off vis,new,level [...] MD; Dr. Yeimi Sorto MD ~* Signed [facility]03-28-2025 [facility]03-28-2025 Consult note [facility] Medical Records Department [address] [place] [address] Pre-Anesthesia Evaluation 12/12/24 1113 MR#: [id number] Acct: [id number] Name: BETSY RODRIGEZ Rep #:[id number] : 1955 69 From: Lennox Schaefer MD PCP: Dr. Fabricio Lemos MD Status :REG [facility] Y Race: C Location: [place] [address] ASA Classification* ASA Classification ASA Classification: 3 [...] poss left Anesthesia History Anesthesia History - container coordinator: Anesthesia History - container coordinator Hx Hospitalization Yes: -12/11/24 08:45 Any Problems [...] take am of surgery PONV PONV - container coordinator: PONV - container coordinator Female Yes 12/11/24 08:45 HX of Motion [...] 12/12/24 10:51 Respiratory Assessment Respiratory Assessment - container coordinator: Respiratory Tract Infection Hx - container coordinator Hx Respiratory Tract Infection No 12/11/24 08:45 STOP Sleep Apnea STOP Sleep Apnea - container coordinator: STOP Sleep Apnea - container coordinator Hx Hypertension Yes: MED 12/11/24 08:45 Hx [...] Tobacco Use History Tobacco Use History - container coordinator: Tobacco Use History - container coordinator Tobacco Use Smoking Status Former smoker 12/11/24 08:45 Hx Tobacco Use No 12/11/24 08:45 Years Smoking Packs Smoked per Day Smoking Cessation Date was Yes - quit smoking within 15 12/11/24 08:45 within the last 15 years years Hx Smoking Cessation Date 09/17/15 12/11/24 08:45 Hx Smoking Cessation No 12/11/24 08:45 Counseling Hematologic Medial History 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 Hx of Blood Transfusion No 12/11/24 08:45 [...] confused, unrespo /Reproduction History /Reproductive History - container coordinator: /Reproductive Hx- container coordinator Hx Now No 12/11/24 08:45 Gestational Age [...] Allergy prednisone AdvReac Other Verified 12/12/24 10:47 Cdpxyke-LMI-DnI Reductase AdvReac cramps Verified 12/12/24 10:47 Inhibitor (Guufkcu-Hhw-Nmf Reductase Inhibitor) Family History Mother Cancer Hx [...] MD Cosigner Signature: Date CC: ~ Signed [facility]03-25-2025 Evaluation note* Diagnosis Onset Date Resolution Status Admit Date Bilateral lower extremity edema acut e December 09, 2024 9:51am Small cell lung cancer acute [facility] 2024 9:51am 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 December [...] is present chronic March 16, 2025 7:48am [facility] Work Phone: 1(245) 177-554203-25-2025 Evaluation note* Diagnosis Onset Date Resolution Status [...] is present chronic April 06, 2025 9:34am [facility] Work Phone: 1([phone]) 393-356103-10-2025 Evaluation note* Diagnosis Onset Date Resolution Status Admit Date 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 November 24 2:38pm Small cell lung cancer acute [facility] 2024 2:38pm 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 November 24, 2024 2:38pm 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 November 24, 2024 2:38pm 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 November 24, 2024 2:38pm Jaundice resolved November 24 2:38pm Bilateral lower extremity edema acut e December 02, 2024 12:19pm Small cell lung cancer acute [facility] 2024 12:19pm 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 December [...] is present chronic March 16, 2025 7:48am [facility] Work Phone: 1(516) 792-728103-01-2025 [facility]02-28-2025 [facility]02-26-2025 NoteHNO ID: [id number] Author: GIRISH LEMOS MD Service: ? Author [...] for diarrhea which is not helping. Has [place] for her back which she has been taking for her abdominal pain without much improvement. Needing to take [place] more than prescribed. Past medical history, appointments, medications, allergies reviewed. Previous Medical History PAST MEDICAL HISTORY Diagnosis Date Anxiety with depression Chronic back pain Chronic kidney disease (CKD), stage III (moderate) (HCC) Colon polyp tubular adenoma [address] 07/16 to 08/17 DDD (degenerative disc disease), lumbar seeing Dr. Johnson Dysphagia Dr. Stiles Ectopic 1991 GERD (gastroesophageal reflux disease) History of prediabetes Hyperlipidemia Hypertension Hypothyroidism Obesity (BMI 30.0-34.9) Other pulmonary embolism without acute cor pulmonale (HCC) Pneumonia due to [facility]- virus Requiring intubation Previous Surgical History PAST [...] Known Problems Brother Stroke Maternal Grandmother or [place], patient unsure Coronary Artery Disease Maternal Grandfather Alcohol abuse Paternal Grandfather Patient Allergies ALLERGIES Allergen Reactions Meagan Inhibitors Rash Codeine Vomiting, Other: See Comments Headache Remeron [Mirtazapin* Other: See Comments Fatigue Spyvidj-Jtw-Wct Red* Myalgia [place] Unknown Zetia [Ezetimibe] Myalgia Current Medications Current [...] not taking: Reported on 11/05/2024) mv,jaci,iron,mn/folic acid/chol (FIQD-VIIQ-JDMGY, PABA, ORAL) Take 1 tablet by mouth once daily. (Patient not taking: Reported on 08/22/2022) Minoxidil 2 % external solution Apply 1 mL to affected area twice daily. No current facility-administered medications on file prior to visit. Social History Social History Tobacco Use Smoking status: Former Current packs/day: 0.00 Average packs/day: 1 pack/d (more content not included)...[facility]02-26-2025 History of Present illness Narrative* Girish Lemos [...] for diarrhea which is not helping. Has [place] for her back which she has been taking for her abdominal pain without much improvement. Needing to take [place] more than prescribed. Past medical history, appointments, medications, allergies reviewed. Previous Medical History PAST MEDICAL HISTORY Diagnosis Date Anxiety with depression Chronic back pain Chronic kidney disease (CKD), stage III (moderate) (HCC) Colon polyp tubular adenoma [address] 07/16 to 08/17 DDD (degenerative disc disease), lumbar seeing Dr. Johnson Dysphagia Dr. Stiles Ectopic 1991 GERD (gastroesophageal reflux disease) History of prediabetes Hyperlipidemia Hypertension Hypothyroidism Obesity (BMI 30.0-34.9) Other pulmonary embolism without acute cor pulmonale (HCC) [facility] [place] [facility] [place] Requiring intubation Previous [...] Known Problems Brother Stroke Maternal Grandmother or [place], patient unsure Coronary Artery Disease Maternal Grandfather Alcohol abuse Paternal Grandfather Patient Allergies ALLERGIES Allergen Reactions Meagan Inhibitors Rash Codeine Vomiting, Other: See Comments Headache Remeron [Mirtazapin* Other: See Comments Fatigue Jzeudsd-Fus-Fub Red* Myalgia [place] Unknown Zetia [Ezetimibe] Myalgia Current Medications Current [...] not taking: Reported on 11/05/2024) mv,jaci,iron,mn/folic acid/chol (OUWR-UDHU-MHFUM, PABA, ORAL) Take 1 tablet by mouth [...] diagnosis) Patient with worsening abdominal pain despite [place], diarrhea uncontrolled with OTC meds, nausea uncontrolled with zofran. Appears dehydrated. Losing weight. All likely 2/2 cancer of unknown origin. Discussed evaluation through ER with admission to help control pain, give her IV fluids, and ideallyget biopsies to determine cause for her cancer. Agreeable to ER evaluation through [facility]. Called and gave report to ER physician. Advised if they discharge her home without admission, would recommend [facility] or [facility]. Records sent with patient. to drive her [...] which included preparing to see the patient, zing-vj-tjpm patient care, completing clinical documentation, obtaining and/or reviewing separately obtained history, performing a medically appropriate examination, counseling and educating the pat ient/family/caregiver, and ordering medications, tests, or procedures. Girish Lemos MD documented in this encounterCos[facility] Telephone encounter Note * Telephone Encounter - Jen Briggs - 11/05/2024 1:56 PM EST RECOMMENDATION/PLAN: 1. Recommend biopsy of liver. Patient wants to think about it, she' ll call or MyChart if she decides to proceed as recommended [facility] Work Phone: [phone]) 684-261602-19-2025 Miscellaneous Notes* Telephone Encounter - Jen Briggs - 11/05/2024 1:56 PM EST RECOMMENDATION/PLAN: 1. Recommend biopsy of liver. Patient wants to think about it, she' ll call or MyChart if she decides to proceed as recommended documented in this encounterCoshocton [facility] Center02-19-2025 NoteHNO ID: [id number] Author: SILAS ROBBINS MD Service: ? Author [...] III (moderate) (HCC) Colon polyp tubular adenoma [address] 07/16 to 08/17 DDD (degenerative disc disease), lumbar seeing Dr. Jonhson Dysphagia Dr. Stiles Ectopic 1991 GERD (gastroesophageal reflux disease) History of prediabetes Hyperlipidemia Hypertension Hypothyroidism Obesity (BMI 30.0-34.9) Other pulmonary embolism without acute cor pulmonale (HCC) Pneumonia [facility] [place] [facility] [place] Requiring intubation PAST [...] Known Problems Brother Stroke Maternal Grandmother or HI, patient unsure Coronary Artery Disease Maternal Grandfather [...] Headache Remeron [Mirtazapin* Other: See Comments Fatigue Jnosayv-Poq-Mfc Red* Myalgia [place] Unknown Zetia [Ezetimibe] Myalgia CURRENT OUTPATIENT MEDICATIONS: [...] not taking: Reported on 11/05/2024) mv,jaci,iron,mn/folic acid/chol (PJQG-SCRD-HKDMC, PABA, ORAL) Take 1 tablet by mouth [...] which included preparing to see the patient, tvso-lv-lqib patient care, completing clinical documentation, obtaining and/or reviewing separately obtained history, counseling and educ (more content not included)...[facility] 11-05-2024 History of Present illness Narrative* Silas [...] III (moderate) (HCC) Colon polyp tubular adenoma [address] 07/16 to 08/17 DDD (degenerative disc disease), lumbar seeing Dr. Johnson Dysphagia Dr. Stiles Ectopic 1991 GERD (gastroesophageal reflux disease) History of prediabetes Hyperlipidemia Hypertension Hypothyroidism Obesity (BMI 30.0-34.9) Other pulmonary embolism without acute cor pulmonale (HCC) [facility] [place] [facility] [place] Requiring intubation PAST SURGICAL HISTORY Procedure [...] Known Problems Brother Stroke Maternal Grandmother or HI, patient unsure Coronary Artery Disease Maternal Grandfather [...] Headache Remeron [Mirtazapin* Other: See Comments Fatigue Lwfbazh-Nio-Ltd Red* Myalgia [place] Unknown Zetia [Ezetimibe] Myalgia CURRENT OUTPATIENT MEDICATIONS: [...] not taking: Reported on 11/05/2024) mv,jaci,iron,mn/folic acid/chol (CRJD-TAEM-CPZKH, PABA, ORAL) Take 1 tablet by mouth [...] which included preparing to see the patient, cydj-kr-smkh patient care, completing clinical documentation, obtaining and/or reviewing separately obtained history, counseling and educating the patient/family/caregiver, communicating with other HCPs (not separately reported), independently interpreting results (not separately reported), and communicating results to the patient/family/caregiver. Reviewed images. Electronically Signed: Silas Robbins MD November 05, 2024 8:52 AM documented in this encounterCoshocton [facility] Center02-18-2025 Telephone encounter Note * Telephone Encounter - Krystin Zimmerman LPN - 11/04/2024 5:02 PM EST Scan on 11/04/2024 1:33 PM by ProviderVonnie PA-C: Consultation - Pulmonary [facility]02-18-2025 Miscellaneous Notes* Telephone Encounter - Krystin Zimmerman LPN - 11/04/2024 5:02 PM EST Scan on 11/04/2024 1:33 PM by ProviderVonnie PAStephane: Consultation - Pulmonary * Telephone Encounter - [...] 11/04/2024 12:16 PM EST Roxann Gomez CNP [facility] calls and is requesting PCP to call her back about patient. Terri Dowell RN documented in this encounterCoshocton [facility] Center02-18-2025 Telephone encounter Note * [...] to Dr. Robbins to review as FYI. [facility]02-[facility] Telephone encounter Note* Telephone Encounter - Girish Lemos MD - 11/04/2024 12:26 PM EST Call is going to directly voicemail. Will call back after seeing next patient. [facility]02-18-[facility] Telephone encounter Note* Telephone Encounter - Terri Dowell RN - 11/04/2024 12:16 PM EST Roxann Gomez CNP [facility] calls and is requesting PCP to call her back about patient. Terri Dowell, RN [facility]02-17-2025 Telephone encounter Note* Telephone Encounter - Jyoce Cisneros LPN - 11/03/2024 2:38 PM EST After speaking to Dr. Lee regarding this patient's records, I spoke with the patient and she decided to keep the appointment as scheduled with Dr. Robbins as to not delay her care. Joyce Cisneros LPN [facility]02-17-2025 Miscellaneous Notes* Telephone Encounter [...] reschedule after patient has pet scan at [facility]. Daughter states wait until results from Pet scan and then patient will reschedule. documented in this encounterCoshocton [facility] Center02-17-2025 Telephone encounter Note * [...] reschedule after patient has pet scan at [facility]. Daughter states wait until results from Pet scan and then patient will reschedule. [facility] Work Phone: 1(891) 797-507302-17-2025 Evaluation note* Diagnosis Onset Date Resolution Status Admit Date Mediastinal mass acute November 03, 2024 11:20am Hypoxia chronic November 03, 2024 11:20am ARMANDO (obstructive sleep apnea) chroni c November 03, 2024 11:20am Pulmonary hypertension chronic Fe bruary 2024 11:20am Smoking greater than 40 pack years chronic November 03 025 11:20am Elevated LFTs acute November 122024 12:58pm Elevated lipase acute November 12, 2024 12:58pm Epigastric pain acute November 12, 2024 12:58pm Intractable abdominal pain acute November 12, 2024 12:58pm Metastasis to liver acute 2024 12:58pm [facility] Work Phone: 1(844) 124-806502-17-2025 Evaluation note* Diagnosis Onset Date Resolution Status [...] 2024 2:38pm Small cell lung cancer acute [facility] 2024 2:38pm Bilateral lower extremity edema acut e December 02, 2024 12:19pm Jaundice acute December 02 12:19pm Metastasis to bone acute December 02, 2024 12:19pm Metastasis to liver acute December 02, 2024 12:19pm Regional lymph node metastas is present acute December 02, 2024 12:19pm Small cell lung cancer acute [facility] 2024 12:19pm Bilateral lower extremity edema acut e December 09, 2024 9:51am Metastasis to bone acute December 09, 2024 9:51am Metastasis to liver acute December 09, 2024 9:51am Regional lymph node metastas is present acute December 09, 2024 9:51am Small cell lung cancer acute [facility] 2024 9:51am Encounter for insertion of venous access port acute December 10, 025 12:33pm 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 December 10 12:33pm [facility] Work Phone: 1(690) 749-511402-17-2025 Evaluation note* Diagnosis Onset Date Resolution Status [...] 2024 2:38pm Small cell lung cancer acute [facility] 2024 2:38pm Jaundice resolved November 24 2:38pm Bilateral lower extremity edema acute December 02, 2024 12:19pm Metastasis to bone acute December 02, 2024 12:19pm Metastasis to liver acute December 02, 2024 12:19pm Regional lymph node metastas is present acute December 02, 2024 12:19pm Small cell lung cancer acute [facility] 2024 12:19pm Jaundice resolved December 02 12:19pm Bilateral lower extremity edema acute December 09, 2024 9:51am Metastasis to bone acute December 09, 2024 9:51am Metastasis to liver acute December 09, 2024 9:51am Regional lymph node metastas is present acute December 09, 2024 9:51am Small cell lung cancer acute [facility] 2024 9:51am Encounter for insertion of venous [...] lung cancer acute Ap ril 2024 7:31pm [facility] Work Phone: 1(540) 450-232702-17-2025 Evaluation note* Diagnosis Onset Date Resolution Status [...] 2024 2:38pm Small cell lung cancer acute [facility] 2024 2:38pm Jaundice resolved November 24 2:38pm Bilateral lower extremity edema acute December 02, 2024 12:19pm Metastasis to bone acute December 02, 2024 12:19pm Metastasis to liver acute December 02, 2024 12:19pm Regional lymph node metastas is present acute December 02, 2024 12:19pm Small cell lung cancer acute [facility] 2024 12:19pm Jaundice resolved December 02 12:19pm Bilateral lower extremity edema acute December 09, 2024 9:51am Metastasis to bone acute December 09, 2024 9:51am Metastasis to liver acute December 09, 2024 9:51am Regional lymph node metastas is present acute December 09, 2024 9:51am Small cell lung cancer acute [facility] 2024 9:51am Encounter for insertion of venous [...] :56am Jaundice resolved February 03, 2025 7:56am [facility] Work Phone: 1(909) 220-166302-17-2025 Evaluation note* Diagnosis Onset Date Resolution Status [...] 24 2:38pm Small cell lung cancer acute [facility] 2024 2:38pm 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 November 24, 2024 2:38pm 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 November 24, 2024 2:38pm 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 November 24, 2024 2:38pm Jaundice resolved November 24 2:38pm Bilateral lower extremity edema acute December 02, 2024 12:19pm Small cell lung cancer acute [facility] 2024 12:19pm 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 December 02, 2024 12:19pm 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 December 02, 2024 12:19pm 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 December 02, 2024 12:19pm Jaundice resolved December 02 12:19pm Bilateral lower extremity edema acute December 09, 2024 9:51am Small cell lung cancer acute [facility] 2024 9:51am 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 December [...] 16, 2024 7:48am Internal hemorrhoids acute [facility] 2024 7:48am Small cell lung cancer acute [facility] 2024 7:48am 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 December [...] is present chronic February 24, 2025 7:52am [facility] Work Phone: 1([phone]) 894-774302-14-2025 Telephone encounter Note* Telephone Encounter - Delmis Park PSS - 10/31/2024 4:04 PM EST CD READY FOR [facility] Pt is aware [facility]02-14-2025 Miscellaneous Notes* Telephone Encounter - Delmis Park PSS - 10/31/2024 4:04 PM EST CD READY FOR [facility] Pt is aware * Telephone Encounter - Chacho Ambriz LPN - 10/31/2024 12:10 PM EST Pt called to request a copy of the disk for the CT of chest pt had done 10/30/24. Pt has an apt on 11-21-24 at [facility] with Pulmonology. Pt is trying to get this moved up. Please advise pt when the disk is done. Chacho Ambriz LPN documented in this encounterCoshocton [facility]02-14-2025 Telephone encounter Note * Telephone Encounter - Jen Briggs - 10/31/2024 2:36 PM EST Appointment scheduled. [facility] Work Phone: 1(283) 357-555802-14-2025 Miscellaneous Notes* Telephone Encounter - Jen Briggs - 10/31/2024 2:36 PM EST Appointment scheduled. * Telephone Encounter - Joyce Cisneros LPN - 10/31/2024 2:13 PM EST PSS- please schedule patient with Dr. Robbins on 11/05/2024 @ 9:00. Patient knows to arrive at 8:30. She is aware of the appointment. Joyce Cisneros LPN * Telephone Encounter - Jocye Cisneros LPN - 10/31/2024 8:55 AM EST [...] Please review and advise. documented in this encounterCoshocton [facility]02-14-2025 Telephone encounter Note * Telephone Encounter - Joyce Cisneros LPN - 10/31/2024 2:13 PM EST PSS- please schedule patient with Dr. Robbins on 11/05/2024 @ 9:00. Patient knows to arrive at 8:30. She is aware of the appointment. Joyce Cisneros LPN [facility]02-14-20[facility] Telephone encounter Note* Telephone Encounter - Chacho Ambriz LPN - 10/31/2024 12:10 PM EST Pt called to request a copy of the disk for the CT of chest pt had done 10/30/24. Pt has an apt on 11-21-24 at [facility] with Pulmonology. Pt is trying to get this moved up. Please advise pt when the disk is done. Chacho Ambriz LPN [facility]02-14-2025 Telephone encounter Note* Telephone Encounter - Lizzy Watson - 10/31/2024 9:19 AM EST Patient scheduled consultation with hepatology on 12/26/24 and has been added to wait list. Patient declined to schedule with provider's that had sooner availability due to distance to facilities. Routing message to [facility] to assist patient with scheduling oncology referral. [facility]02-14-2025 Miscellaneous Notes* Telephone Encounter [...] scan results. Patient agreeable to schedule with field reviewer. 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 Faxed CT results and demographics to [facility] pulmonology per patient request. documented in this encounterCoshocton [facility] Telephone encounter Note * Telephone Encounter - Marta Meadows RN - 10/31/2024 9:12 AM EST Patient returned call and given provider's message regarding CT scan results. Patient agreeable to schedule with field reviewer. 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 Faxed CT results and demographics to [facility] pulmonology per patient request. [facility]02-14-2025 Telephone encounter Note* Telephone Encounter - Joyce Cisneros LPN - 10/31/2024 8:55 AM EST Left message for patient to contact office. PSS- please offer her a new patient appointment TODAY with Dr. Hansen @ 10:30 or 1:00. Joyce Cisneros LPN [facility]02-13-2025 Telephone encounter Note* Telephone [...] Lemos. No biopsy yet. Joyce Cisneros LPN [facility]02-13-2025 Telephone encounter Note* Telephone [...] received and PCP advises. Poonam Denise RN [facility]02-13-2025 Miscellaneous Notes* Telephone Encounter - Poonam Denise [...] advises. Poonam Denise RN documented in this encounterCoshocton Regional [facility] Center02-13-2025 History of Present illness Narrative* Reef Viridiana [...] PATIENT PRESENTS WITH AN IMPLANTABLE OR ATTACHED HEAD GOLF PROFESSIONAL: No ALLERGIES: Reviewed and unchanged CONTRAST ALLERGY: [...] DEPARTMENT: CT; Exam(s) Completed: Chest SIGNATURE: RT Levar(Coy) PATIENT NAME: Betsy Rodrigez DATE: October 30, 2024 TIME: 12:42 PM documented in this encounterCoshocton Regional [facility] Center02-13-2025 NoteHNO ID: [id number] Author: VIRIDIANA TORRES RT(R) Service: ? Author Type: [place] Type: Progress Notes Filed: 10/30/2024 12:42 Note [...] PATIENT PRESENTS WITH AN IMPLANTABLE OR ATTACHED HEAD GOLF PROFESSIONAL: No ALLERGIES: Reviewed and unchanged CONTRAST ALLERGY: [...] Rodrigez DATE: October 30, 2024 TIME: 12:42 [facility]02-10-2025 Telephone encounter Note* Telephone Encounter - Joyce Cisneros LPN - 10/27/2024 9:[address] chest scheduled for 10/30/2024. Joyce Cisneros LPN [facility]02-05-2025 Telephone encounter Note* Telephone Encounter - Phylicia Heredia RN - 10/22/2024 3:19 PM EST Patient calls upset that the CT scan of her chest order has been cancelled four times. Patient requests order be sent to [facility] to see if they can see her any sooner that [facility]. Faxed per request to [phone]. Submitted PA to [employer] and Lori. Phylicia Heredia RN [facility]02-05-2025 Miscellaneous Notes* Telephone Encounter - Phylicia Heredia RN - 10/22/2024 3:19 PM EST Patient calls upset that the CT scan of her chest order has been cancelled four times. Patient requests order be sent to [facility] to see if they can see her any sooner that [facility]. Faxed per request to [phone]. Submitted PA to [employer] and Lori. Phylicia Heredia RN documented in this encounterCoshocton Regional Medical Center02-05-2025 Telephone encounter Note * Telephone Encounter - Joyce Cisneros LPN - 10/22/2024 10:31 AM EST D/T CT machine being down, CT chest rescheduled to 10/22/2024. Joyce Cisneros LPN [facility]02-03-2025 Telephone encounter Note* Telephone Encounter - Mae Wong MA - 10/20/2024 10:40 AM EST Pt notified of results via FonJaxhart. Mae Wong Ma [facility]02-03-2025 Miscellaneous Notes* Telephone Encounter [...] ordered follow up labs. documented in this encounterCoshocton Regional Medical Center02-03-2025 Telephone encounter Note * Telephone Encounter - Oleg Fields APRN.CNP - 10/20/2024 10:20 AM EST Please let patient know her hepatitis panel is negative. [facility]02-03-2025 Telephone encounter Note* Telephone Encounter - Mae Wong MA - 10/20/2024 10:11 AM EST Pt notified of results via FonJaxhart. Mae Wong Ma [facility]02-03-2025 Miscellaneous Notes* Telephone Encounter [...] as discussed in office. documented in this encounterCoshocton Regional Medical Center02-03-2025 Telephone encounter Note * Telephone Encounter - Mae Wong MA - 10/20/2024 10:10 AM EST ----- Message from Girish Lemos MD sent at 10/19/2024 2:20 PM EST ----- Normal alpha fetoprotein level. Follow up with CT chest and referrals as discussed in office. [facility]02-03-2025 Telephone encounter Note* Telephone Encounter - Joyce Cisneros LPN - 10/20/2024 8:34 AM EST Scheduled for CT chest today to find primary. Will need biopsy. Joyce Cisneros LPN [facility]02-03-2025 Telephone encounter Note* Telephone Encounter - Jyotsna Bender - 10/20/2024 8:29 AM EST Patient has consult to Oncology that needs to be scheduled. DX: Liver Masses Insurance: M[employer] Medicare Advantage HMO Referred by: Girish Lemos MD Please review and advise. [facility]02-02-2025 Telephone encounter Note* Telephone Encounter - Girish Lemos MD - 10/19/2024 1:52 PM EST Thank you. [facility]02-02-2025 Miscellaneous Notes* Telephone Encounter - Girish Lemos MD - 10/19/2024 1:52 PM EST Thank you. * Telephone Encounter - Lennox Bellamy MSW - 10/17/2024 3:50 PM EST Sw spoke with patient regarding transportation needs. Patient reports that she does live in [place]. Her spouse takes her to doctor appts, he is just not able to drive early in the morning or late at night, due to vision issues. Patient reports I do think that my Medicare Advantage plan has transportation. Patient will giveher insurance a call to discuss transportation and see if she has that as a benefit. Patient and Sw also discussed [employer] [place] [facility]. Sw provided patient with the number for [employer]. [employer] coordinates local churches in [place] to address needs of residents. Patient notes that she will check with [employer] if insurance is unable to provide transportation assistance. Sw also provided patient with direct number and discussed other needs ie home care, home delivered meals, financial assistance needs that Sw could help with linking to resources. Patient thanked SW for call and will let Sw know if she has any further needs. documented in this encounterCoshocton Regional Medical Center01-31-2025 Telephone encounter Note * Telephone Encounter - Lennox Bellamy MSW - 10/17/2024 3:50 PM EST Sw spoke with patient regarding transportation needs. Patient reports that she does live in [place]. Her spouse takes her to doctor appts, he is just not able to drive early in the morning or late at night, due to vision issues. Patient reports I do think that my Medicare Advantage plan has transportation. Patient will giveher insurance a call to discuss transportation and see if she has that as a benefit. Patient and Sw also discussed [employer] [facility]. Sw provided patient with the number for [employer]. [employer] coordinates local churches in [place] to address needs of residents. Patient notes that she will check with [employer] if insurance is unable to provide transportation assistance. Sw also provided patient with direct number and discussed other needs ie home care, home delivered meals, financial assistance needs that Sw could help with linking to resources. Patient thanked SW for call and will let Sw know if she has any further needs. [facility]01-31-2025 NoteHNO ID: [id number] Author: GIRISH LEMOS MD Service: ? Author [...] pain, currently 5/10. Treating at home with [place] which Dr. Johnson prescribes for her back [...] III (moderate) (HCC) Colon polyp tubular adenoma [address] 07/16 to 08/17 DDD (degenerative disc disease), lumbar seeing Dr. Johnson Dysphagia Dr. Stiles Ectopic 1991 GERD (gastroesophageal reflux disease) History of prediabetes Hyperlipidemia Hypertension Hypothyroidism Obesity (BMI 30.0-34.9) Other pulmonary embolism without acute cor pulmonale (HCC) [place] [facility] Requ[place] intubation Previous Surgical History PAST [...] Cancer Brother lung Stroke Maternal Grandmother or [place], patient unsure Coronary Artery Disease Maternal Grandfather No Known Problems Sister Patient Allergies ALLERGIES Allergen Reactions Meagan Inhibitors Rash Codeine Vomiting, Other: See Comments Headache Remeron [Mirtazapin* Other: See Comments Fatigue Mprddgt-Sqv-Tav Red* Myalgia [place] Unknown Zetia [Ezetimibe] Myalgia Current Medications Current [...] once for 1 dose.N (more content not included)...[facility]01-31-2025 History of Present illness Narrative* Girish Lemos [...] having RUQ pain, currently 01/24. Treating at homewith [place] which Dr. Johnson prescribes for her back [...] III (moderate) (HCC) Colon polyp tubular adenoma [address] 07/16 to 08/17 DDD (degenerative disc disease), lumbar seeing Dr. Johnson Dysphagia Dr. Stiles Ectopic 1991 GERD (gastroesophageal reflux disease) History of prediabetes Hyperlipidemia Hypertension Hypothyroidism Obesity (BMI 30.0-34.9) Other pulmonary embolism without acute cor pulmonale (HCC) Pneumonia [place] [facility] Requiring intubation Previous [...] Cancer Brother lung Stroke Maternal Grandmother or [place], patient unsure Coronary Artery Disease Maternal Grandfather No Known Problems Sister Patient Allergies ALLERGIES Allergen Reactions Meagan Inhibitors Rash Codeine Vomiting, Other: See Comments Headache Remeron [Mirtazapin* Other: See Comments Fatigue Ztpvyfy-Xvn-Bug Red* Myalgia [place] Unknown Zetia [Ezetimibe] Myalgia Current Medications Current [...] designated per enteric contrast guidelines mv,jaci,iron,mn/folic acid/chol (PLOI-HSRV-FOYLV, PABA, ORAL) Take 1 tablet by mouth [...] Abs Lymph 1.00 - 4.00 k/uL 1.31 Coleman% % 13.9 Abs Coleman <0.87 k/uL 0.66 Eosin% % 1.7 Abs [...] which included preparing to see the patient, kdcz-fl-bkkz patient care, completing clinical documentation, obtaining and/or reviewing separately obtained history, performing a medically appropriate examination, counseling and educating the pat ient/family/caregiver, and ordering medications, tests, or procedures. Girish Lemos MD documented in this encounterCoshocton [facility] Center01-30-2025 Telephone encounter Note * Telephone Encounter - Arin Muñoz MA - 10/16/2024 3:00 PM EST Pt notified and scheduled for a follow up tomorrow Arin Muñoz MA [facility]01-30-2025 Telephone encounter Note* Telephone Encounter - Olge Fields APRN.FORMULATOR COMPOUNDER - 10/16/2024 1:33 PM EST Please call patient and schedule follow up with Dr. Lemos for tomorrow to discuss results and care plan. Also let patient know I have ordered follow up labs. [facility]01-30-2025 NoteHNO ID: [id number] Author: OLEG FIELDS APRN.CNP Service: ? Author [...] III (moderate) (HCC) Colon polyp tubular adenoma [address] 07/16 to 08/17 DDD (degenerative disc [...] Cancer Brother lung Stroke Maternal Grandmother or HI, patient unsure Coronary Artery Disease Maternal Grandfather No Known Problems Sister Patient Allergies ALLERGIES Allergen Reactions Meagan Inhibitors Rash Codeine Vomiting, Other: See Comments Headache Remeron [Mirtazapin* Other: See Comments Fatigue Frhwsgi-Cgk-Igj Red* Myalgia [place] Unknown Zetia [Ezetimibe] Myalgia Current Medications Current [...] hours as needed for pain. mv,jaci,iron,mn/folic acid/chol (SNQV-VPVX-ZIVJC, PABA, ORAL) Take 1 tablet by mouth [...] on 07/15/2027 Lipid Screeni (more content not included)...[facility]01-30-2025 History of Present illness Narrative* 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 - 10/16/2024 8:38 AM EST Chief Complaint [...] III (moderate) (HCC) Colon polyp tubular adenoma [address] 07/16 to 08/17 DDD (degenerative disc disease), lumbar seeing Dr. Johnson Dysphagia Dr. Stiles Ectopic 1991 GERD (gastroesophageal reflux disease) History of prediabetes Hyperlipidemia Hypertension Hypothyroidism Obesity (BMI 30.0-34.9) Other pulmonary embolism without acute cor pulmonale (HCC) [place] [facility] [place] [place] Requiring intubation Previous Surgical History PAST [...] Cancer Brother lung Stroke Maternal Grandmother or HI, patient unsure Coronary Artery Disease Maternal Grandfather No Known Problems Sister Patient Allergies ALLERGIES Allergen Reactions Meagan Inhibitors Rash Codeine Vomiting, Other: See Comments Headache Remeron [Mirtazapin* Other: See Comments Fatigue Ewjczok-Zuh-Ffc Red* Myalgia [place] Unknown Zetia [Ezetimibe] Myalgia Current Medications Current [...] hours as needed for pain. mv,jaci,iron,mn/folic acid/chol (TGTV-XNFG-RWDCM, PABA, ORAL) Take 1 tablet by mouth [...] - CT ABD/PEL W IVCON 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 documented in this encounterCoshocton Regional Medical Center01-29-2025 Telephone encounter Note * Telephone Encounter - Phylicia Heredia RN - 10/15/2024 8:27 AM EST Patient calls for stomach discomfort. Nurse triage completed. Protocol recommends see provider within 24 hours. Patient not able to come in for appt with PCP dyad. [facility]. Appt [...] pain, vomiting Protocols used: Abdominal Pain - Mkhllo-JJIKY-JI [facility]01-29-2025 Miscellaneous Notes* Telephone Encounter - Phylicia Heredia RN - 10/15/2024 8:27 AM EST Patient calls for stomach discomfort. Nurse triage completed. Protocol recommends see provider within 24 hours. Patient not able to come in for appt with PCP dyad. [facility]. Appt [...] pain, vomiting Protocols used: Abdominal Pain - Abzqkx-ZGKOW-QE documented in this encounterCoshocton Regional Medical Center01-03-2025 NoteHNO ID: [id number] Author: GIRISH LEMOS MD Service: ? Author Type: Physician Type: Progress Notes Filed: 09/19/2024 13:08 Note Text: Chief Complaint Patient presents with: Blood Pressure: Recheck-losartan increased to 50mg.No note of call back from [facility] around 09/03/24 as requested with readings. Patient [...] III (moderate) (HCC) Colon polyp tubular adenoma [address] 07/16 to 08/17 DDD (degenerative disc disease), lumbar seeing Dr. Johnson Dysphagia Dr. Stiles Ectopic 1991 GERD (gastroesophageal reflux disease) History of prediabetes Hyperlipidemia Hypertension Hypothyroidism Obesity (BMI 30.0-34.9) Other pulmonary embolism without acute cor pulmonale (HCC) Pneumonia due to [facility]- virus Requiring intubation Previous Surgical History PAST [...] Cancer Brother lung Stroke Maternal Grandmother or HI, patient unsure Coronary Artery Disease Maternal Grandfather No Known Problems Sister Patient Allergies ALLERGIES Allergen Reactions Meagan Inhibitors Rash Codeine Vomiting, Other: See Comments Headache Remeron [Mirtazapin* Other: See Comments Fatigue Dktxvar-Bjw-Tdf Red* Myalgia [place] Unknown Zetia [Ezetimibe] Myalgia Current Medications Current [...] mg by mouth two times a day. mv,jcai,iron,mn/folic acid/chol (MEVX-FMLQ-PZHJI, PABA, ORAL) Take 1 tablet by mouth [...] distress, well-hydrated, well nouris (more content not included)...[facility]01-03-2025 History of Present illness Narrative* Girish Lemos MD - 09/19/2024 9:57 AM EST Chief Complaint Patient presents with: Blood Pressure: Recheck-losartan increased to 50mg.No note of call back from [facility] 09/03/24 as requested with readings. Patient [...] III (moderate) (HCC) Colon polyp tubular adenoma [address] 07/16 to 08/17 DDD (degenerative disc disease), lumbar seeing Dr. Johnson Dysphagia Dr. Stiles Ectopic 1991 GERD (gastroesophageal reflux disease) History of prediabetes Hyperlipidemia Hypertension Hypothyroidism Obesity (BMI 30.0-34.9) Other pulmonary embolism without acute cor pulmonale (HCC) [place] [facility] Requiring intubation Previous [...] Cancer Brother lung Stroke Maternal Grandmother or [place], patient unsure Coronary Artery Disease Maternal Grandfather No Known Problems Sister Patient Allergies ALLERGIES Allergen Reactions Meagan Inhibitors Rash Codeine Vomiting, Other: See Comments Headache Remeron [Mirtazapin* Other: See Comments Fatigue Aivbenj-Jxp-Xcb Red* Myalgia [place] Unknown Zetia [Ezetimibe] Myalgia Current Medications Current [...] mouth two times a day. mv,jaci,iron,mn/folic acid/chol (LLLO-PEQM-ZLAMM, PABA, ORAL) Take 1 tablet by mouth [...] exercise Girish Lemos MD documented in this encounterCoshocton Regional Medical Center12-11-2024 Telephone encounter Note * Telephone Encounter - Rachael Baker RN - 08/27/2024 10:50 AM EST Jeanne- [facility] called and is notified of providers message and instructions. She voices understanding and will send updated Bps in one week. Rachael Baker RN [facility]12-11-2024 Miscellaneous Notes* Telephone Encounter - Rachael Baker RN - 08/27/2024 10:50 AM EST Jeanne- [facility] called and is notified of providers message [...] 9:33 AM EST Jeanne- [facility]- reports she received a referral from patient's insurance company, once patient's losartan was increased, for their 3 mth monitoring program. [facility] monitors quality of life, checks VS's, [...] weeks. Given fax number. documented in this encounterCoshocton Regional Medical Center12-11-2024 Telephone encounter Note * Telephone Encounter - Girish Lemos MD - 08/27/2024 10:15 AM EST BP still high on this dosage after about 1 week. Please send updated BP in 1 week. If still high then, will increase to 100 mg daily. [facility]12-11-2024 Telephone encounter Note* Telephone Encounter - Marta Meadows RN - 08/27/2024 9:33 AM EST Jeanne- [facility]- reports she received a referral from patient's insurance company, once patient's losartan was increased, for their 3 mth monitoring program. [facility] monitors quality of life, checks VS's, [...] patient for 3 weeks. Given fax number. 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 Johnson Dysphagia Dr. Stiles Ectopic 1991 GERD (gastroesophageal reflux disease) History of prediabetes Hyperlipidemia Hypertension Hypothyroidism Obesity (BMI 30.0-34.9) Other pulmonary embolism without acute cor pulmonale (HCC) Pneumonia due to [facility]- virus Requiring intubation ALLERGIES Meagan Inhibitors, Codeine, Remeron [Mirtazapine], Ffkmept-Hgg-Sol Reductase Inhibitors, [place], and Zetia [Ezetimibe] MEDICATIONS Current Outpatient Medications [...] hours as needed for pain. mv,jaci,iron,mn/folic acid/chol (NZQQ-WWWK-FCOYW, PABA, ORAL) Take 1 tablet by mouth [...] - LOSARTAN 50 MG TABLET Jeanette Berrios APRN.DIA Prescription instructions reviewed with [...] Level: 4 - Moderate documented in this encounterCoshocton Regional Medical Center12-03-2024 NoteHNO ID: [id number] Author: JEANETTE BERRIOS APRN.FORMULATOR COMPOUNDER Service: ? Author Type: Nurse Practitioner Type: [...] III (moderate) (HCC) Colon polyp tubular adenoma [address] 07/16 to 08/17 DDD (degenerative disc disease), lumbar seeing Dr. Johnson Dysphagia Dr. Stiles Ectopic 1991 GERD (gastroesophageal reflux disease) History of prediabetes Hyperlipidemia Hypertension Hypothyroidism Obesity (BMI 30.0-34.9) Other pulmonary embolism without acute cor pulmonale (HCC) Pneumonia due to [facility]- virus Requiring intubation ALLERGIES Meagan Inhibitors, Codeine, Remeron [Mirtazapine], Vvukvvn-Nzk-Yct Reductase Inhibitors, [place], and Zetia [Ezetimibe] MEDICATIONS Current Outpatient Medications [...] hours as needed for pain. mv,jaci,iron,mn/folic acid/chol (OCJB-MXNK-IGFBU, PABA, ORAL) Take 1 tablet by mouth [...] - LOSARTAN 50 MG TABLET Jeanette Berrios APRN.FORMULATOR COMPOUNDER Prescription instructions reviewed with patient as applicable. [...] testing/treatment Medical Decision Making Level: 4 - [facility]erateFairfield [facility] Center10-29-2024 NoteHNO ID: [id number] Author: JEANETTE BERRIOS APRN.FORMULATOR COMPOUNDER Service: ? Author Type: Nurse Practitioner Type: [...] No. 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 Last visit in May. 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 Johnson Dysphagia Dr. Stiles Ectopic 1991 GERD (gastroesophageal reflux disease) History of prediabetes Hyperlipidemia Hypertension Hypothyroidism Obesity (BMI 30.0-34.9) Other pulmonary embolism without acute cor pulmonale (HCC) Pneumonia due to COVID-19 virus Requiring intubation ALLERGIES Meagan Inhibitors, Codeine, Remeron [Mirtazapine], Omuowle-Jpc-Xvh Reductase Inhibitors, [place], and Zetia [Ezetimibe] MEDICATIONS Current Outpatient Medications [...] hours as needed for pain. mv,jaci,iron,mn/folic acid/chol (TWPB-PDOJ-RXMMV, PABA, ORAL) Take 1 tablet by mouth [...] or lesions to exposed skin Latest Ref [facility] 01/18/2024 WBC 3.70 - 11.00 k/uL [...] Abs Lymph 1.00 - 4.00 k/uL 1.36 Coleman% % 13.7 Abs Coleman <0.87 k/uL 0.58 Eosin% % 2.4 Abs Eosin <0.46 k/uL 0.10 Baso% % 1.4 Abs Baso <0.11 k/uL 0.06 Immature Gran % % 0.5 IMMATURE GRANS (ABS) <0.10 k/uL <0.03 NRBC /100 WBC 0 (more content not included)...[facility] 07-15-2024 History of Present illness Narrative* MaksimlogJeanette gibbons APRN.FORMULATOR COMPOUNDER - 07/15/2024 8:56 AM EDT 07/15/2024 Patient [...] No. 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 Last visit in May. 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 Johnson Dysphagia Dr. Stiles Ectopic 1991 GERD (gastroesophageal reflux disease) History of prediabetes Hyperlipidemia Hypertension Hypothyroidism Obesity (BMI 30.0-34.9) Other pulmonary embolism without acute cor pulmonale (HCC) [place] [facility] [place] Requiring intubation ALLERGIES Meagan Inhibitors, Codeine, Remeron [Mirtazapine], Tnclepy-Xcd-Int Reductase Inhibitors, [place], and Zetia [Ezetimibe] MEDICATIONS Current Outpatient Medications [...] hours as needed for pain. mv,jaci,iron,mn/folic acid/chol (GBGP-VZRN-ELXES, PABA, ORAL) Take 1 tablet by mouth [...] Abs Lymph 1.00 - 4.00 k/uL 1.36 Coleman% % 13.7 Abs Coleman <0.87 k/uL 0.58 Eosin% % 2.4 Abs [...] Influenza Vaccine(1) due on 05/18/2024 Covid-19 Vaccine( - season) due on 05/18/2024 BP Controlled (<130/80) [...] Level: 4 - Moderate documented in this encounterCoshocton Regional Medical Center10-25-2024 Telephone encounter Note * [...] Briseyda Kong July 11, 2024 8:49 AM [facility]10-25-2024 Miscellaneous Notes* Telephone Encounter - rBiseyda Kong - 07/11/2024 8:48 AM EDT Prescription [...] 11, 2024 8:49 AM documented in this encounterCoshocton Regional Medical Center10-09-2024 NotePatient Outreach (INTMMN) BETSY RODRIGEZ ([id number]) 1955 F Date Time Provider Department 06/25/24 GIRISH LEMOS INTMMN During your visit today, we recorded the following information about you: Allergies As of Date: 06/25/2024 Noted Allergy Reaction MEAGAN INHIBITORS 10/06/2017 2 - Rash CODEINE 10/06/2017 11 - Vomiting 14 - Other: See Comments Comments: Headache REMERON (MIRTAZAPINE) 01/17/2021 14 - Other: See Comments Comments: Fatigue YZPUXYB-JGY-DXZ REDUCTASE INHIBIT*11/14/2017 17 - Myalgia WALNUT 10/06/2017 16 - Unknown ZETIA (EZETIMIBE) 01/17/2021 17 - Myalgia Date Reviewed: 01/08/2024 Reviewed by: Krystin Zimmerman LPN - Fully Assessed Visit Diagnosis:Encounter for screening mammogram for breast cancer [Z12.31] Order(s):LYN CAIN [[id number]] Order #: [id number] FUTURE Prescriptions as of 06/30/2024 - potassium [...] as needed for pain. - mv,jaci,iron,mn/folic acid/chol (BINJ-WQDR-MRENK, PABA, ORAL) Take 1 tablet by mouth [...] hypertension (HCC) [I27.20] 06/22/2023 Encounter Status:Closed by SHERRIE ANNAUSECoy on 06/30/24[facility] 04-28-2024 Telephone encounter Note* Telephone Encounter - [place] Beverley Royal - 04/28/2024 2:01 PM EDT [...] Beverley Royal April 28, 2024 2:02 PM [facility]08-12-2024 Miscellaneous Notes* Telephone Encounter - [place] Beverley Royal - 04/28/2024 2:01 PM EDT [...] 28, 2024 2:02 PM documented in this encounterCoshocton Regional Medical Center05-06-2024 Telephone encounter Note * Telephone Encounter - Mae Wong MA - 01/21/2024 10:45 AM EDT Pt notified and voiced understanding. Mae Wong MA [facility]05-06-2024 Miscellaneous Notes* Telephone Encounter [...] normal. Jeanette Berrios APRN.CNP documented in this encounterCoshocton Regional Medical Center05-06-2024 Telephone encounter Note * Telephone Encounter - Mae Wong MA - 01/21/2024 10:44 AM EDT ----- Message from Jeanette Berrios APRN.CNP sent at 01/21/2024 6:40 AM EDT ----- Vitamin D mildly low- if not already should take 2000 units daily- may get this over the counter. The rest of her blood work is normal. Jeanette Berrios APRN.CNP [facility]04-23-2024 History of Present illness [...] No. ASTHMA/Pulmonary HTN: Follows with Dr. 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 Has follow-up with pulmonology next week. 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 Johnson Dysphagia Dr. Stiles Ectopic 1991 GERD (gastroesophageal reflux disease) History of prediabetes Hyperlipidemia Hypertension Hypothyroidism Obesity (BMI 30.0-34.9) Other pulmonary embolism without acute cor pulmonale (HCC) [place] [facility] Requiring intubation ALLERGIES Meagan Inhibitors, Codeine, Remeron [Mirtazapine], Ikrqtno-Enx-Lzh Reductase Inhibitors, [place], and Zetia [Ezetimibe] MEDICATIONS Current Outpatient Medications [...] not taking: Reported on 06/22/2023) mv,jaci,iron,mn/folic acid/chol (CYGR-OMGG-BHJTV, PABA, ORAL) Take 1 tablet by mouth [...] COMPLETE BLOOD COUNT AND DIFFERENTIAL Jeanette Berrios APRN.FORMULATOR COMPOUNDER Prescription instructions reviewed with patient as applicable. [...] Level: 4 - Moderate documented in this encounterCoshocton Regional Medical Center02-06-2024 Miscellaneous Notes* Telephone Encounter - Jann Landry LPN - 10/23/2023 10:46 AM EST [...] primary care: 12/24/2023 Please advise. Thank you. Jann Landry LPN. documented in this encounterCoshocton Regional Medical Center10-06-2023 Instructions* Patient Instructions* Jeanette Berrios APRN.CNP - 06/22/2023 9:17 AM EDT Check labs in August, follow-up in 6 months for routine visit Use debrox for ear documented in this encounterCoshocton Regional Medical Center10-06-2023 History of Present illness [...] bedning over. ASTHMA: Follows with Dr. James, [facility] casing crew with last visit on 03/13/2023. Completed PFT and walking test. Patient reports was told looks like she is improving some Patient reports spoke with sleep medicine over at [facility] and was told she has horrible insomnia. Will be following up with sleep medicine. Has CPAP she uses sometimes HYPOTHYROIDISM: taking synthroid as prescribed without side effects PREDIABETES: tries to eat lower carbohydrate diet and stay active. 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 Johnson Dysphagia Dr. Stiles Ectopic 1991 GERD (gastroesophageal reflux disease) History of prediabetes Hyperlipidemia Hypertension Hypothyroidism Obesity (BMI 30.0-34.9) Other pulmonary embolism without acute cor pulmonale (HCC) Pneumonia due to COVID-19 virus Requiring intubation ALLERGIES Meagan Inhibitors, Codeine, Remeron [Mirtazapine], Emfimmc-Lqr-Dxp Reductase Inhibitors, [place], and Zetia [Ezetimibe] MEDICATIONS Current Outpatient Medications [...] tablets by mouth once daily. mv,jaci,iron,mn/folic acid/chol (VFDL-ZUMG-MGPKF, PABA, ORAL) Take 1 tablet by mouth [...] Abs Lymph 1.00 - 4.00 k/uL 1.41 Coleman% % 12.2 Abs Coleman <0.87 k/uL 0.66 Eosin% % 2.8 Abs [...] - follow-up wi cardiology as recommended Jeanette Berrios APRN.DIA Prescription instructions reviewed with [...] which included preparing to see the patient, yosm-gu-yvpf patient care, completing clinical documentation, obtaining and/or reviewing separately obtained history, performing a medically appropriate examination, counseling and educating the pat ient/family/caregiver, and ordering medications, tests, or procedures. documented in this encounterCoshocton Regional Medical Center08-21-2023 Miscellaneous Notes* Telephone Encounter [...] her insurance. Pended. Needs diagnosis. Fax to [phone]. Phylicia Heredia RN documented in this encounterCoshocton Regional Medical Center08-21-2023 Procedure [facility]07-28-2023 Miscellaneous Notes* Telephone Encounter - Phylicia Heredia [...] 02/20/2023 308 04/20/2021 277 Potassium: 4.7 on 6..2022 Please advise. Thank you. Phylicia Heredia RN documented in this encounterCoshocton Regional Medical Center07-05-2023 Instructions* Patient Instructions* Jeanette Berrios APRN.CNP - 03/21/2023 9:29 AM EDT Make appointment with Dr. Stiles to discuss colonoscopy documented in this encounterCoshocton Regional Medical Center07-05-2023 History of Present illness [...] pain or palpitations. 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 Johnson Dysphagia Dr. Stiles Ectopic 1991 GERD (gastroesophageal reflux disease) History of prediabetes Hyperlipidemia Hypertension Hypothyroidism Obesity (BMI 30.0-34.9) Other pulmonary embolism without acute cor pulmonale (HCC) Pneumonia due to [place] [address] virus Requiring intubation ALLERGIES Meagan Inhibitors, Codeine, Remeron [Mirtazapine], Jtzoyyb-Etl-Yeo Reductase Inhibitors, [place], and Zetia [Ezetimibe] MEDICATIONS Current Outpatient Medications [...] tablets by mouth once daily. mv,jaci,iron,mn/folic acid/chol (JJQS-PKUW-XWYFH, PABA, ORAL) Take 1 tablet by mouth [...] which included preparing to see the patient, xkpe-gy-mgkr patient care, completing clinical documentation, obtaining and/or reviewing separately obtained history, performing a medically appropriate examination, counseling and educating the pat ient/family/caregiver, and ordering medications, tests, or procedures. documented in this encounterCoshocton Regional Medical Center07-03-2023 Miscellaneous Notes* Telephone Encounter - Priti Heck LPN - 03/19/2023 2:49 PM EDT Thi from [facility] asking that last office visit and EKg be faxed to Dr. Xuan Castillo. These were faxed to [phone]. documented in this encounterCoshocton Regional Medical Center06-07-2023 Miscellaneous Notes* Telephone Encounter - Jann Landry LPN - 02/21/2023 10:59 AM EDT Patient returned call and went over results, notes from Jeanette Berrios 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 with understanding. Patient said she can not [...] AM EDT ----- Message from Jeanette Berrios APRN.FORMULATOR COMPOUNDER sent at 02/21/2023 7:45 AM EDT ----- Cholesterol levels about the same as last check. Continue to eat lower saturated fat diet and aim for at least 150 minutes of exercise per week. A1c remains the same in prediabetic range- continue lower carbohydrate diet and exercise as mentioned abo ve. The rest of her blood work is within acceptable ranges. 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 Johnson Dysphagia Dr. Stiles Ectopic 1991 GERD (gastroesophageal reflux disease) History of prediabetes Hyperlipidemia Hypertension Hypothyroidism Obesity (BMI 30.0-34.9) Other pulmonary embolism without acute cor pulmonale (HCC) Pneumonia due to [place] [address] virus Requiring intubation ALLERGIES Meagan Inhibitors, Codeine, Remeron [Mirtazapine], Wzgkclx-Fta-Ouv Reductase Inhibitors, [place], and Zetia [Ezetimibe] MEDICATIONS Current Outpatient Medications [...] by mouth three times daily. mv,jaci,iron,mn/folic acid/chol (GFJZ-ZBFF-RNGFJ, PABA, ORAL) Take 1 tablet by mouth [...] losartan - follow-up pending blood work Jeanette Berrios, 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 Prescription instructions reviewed with patient as applicable. [...] which included preparing to see the patient, qesr-ny-bduh patient care, completing clinical documentation, obtaining and/or reviewing separately obtained history, performing a medically appropriate examination, counseling and educating the pat ient/family/caregiver, and ordering medications, tests, or procedures. 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 Johnson Dysphagia Dr. Stiles Ectopic 1991 GERD (gastroesophageal reflux disease) History of prediabetes Hyperlipidemia Hypertension Hypothyroidism Obesity (BMI 30.0-34.9) Other pulmonary embolism without acute cor pulmonale (HCC) Pneumonia due to [place] [address] virus Requiring intubation Current Outpatient Medications Medication [...] tablets by mouth once daily. mv,jaci,iron,mn/folic acid/chol (PGST-PLGL-WIETT, PABA, ORAL) Take 1 tablet by mouth [...] Headache Remeron [Mirtazapin* Other: See Comments Fatigue Bdwewau-Zac-Knv Red* Myalgia [place] Unknown Zetia [Ezetimibe] Myalgia PAST SURGICAL HISTORY [...] Cancer Brother lung Stroke Maternal Grandmother or HI, patient unsure Coronary Artery Disease Maternal Grandfather [...] Talat Merida DPM Podiatry [address] [facility] [address] Dept: [phone] Dept * Barbara Salinas LPN - 01/24/2023 [...] toe. Barbara Salinas LPN documented in this encounterCoshocton Regional Medical Center05-10-2023 Instructions* Patient Instructions* Talat Merida - 01/24/2023 10:02 AM EDT Recommend gel pad while walking to help cushion the left 5th toe Powerstep Original Full length. Can purchase at [employer] here in [place], [employer] in [place] or [place]. Also can find in [employer] in [facility]. Powersteps can also be purchased online, [...] everything fits well together documented in this encounterCoshocton Regional Medical Center05-10-2023 History of Present illness [...] IV DATA: Not applicable SIGNED BY: RT Dmaeon(R) January 24, 2023 8:50 AM documented in this encounterCoshocton Regional Medical Center01-06-2023 Miscellaneous Notes* Telephone Encounter - Rachael Baker [...] walking and light weight lifting. Jeanette Berrios APRN.DIA documented in this encounterCoshocton Regional Medical Center01-04-2023 History of Present illness [...] 20, 2022 9:58 AM documented in this encounterCoshocton Regional Medical Center01-03-2023 Procedure note* Girish Lemos MD - 09/19/2022 9:48 AM EST After the risks and options of alternative treatments were reviewed, the lesion(s) located on [place] were treated with cryosurgery after prepping area with alcohol. A total of 3 lesion(s) were treated. Girish Lemos MD documented in this encounterCoshocton Regional Medical Center01-03-2023 Instructions* Patient Instructions* Girish [...] instructed by your physician, you may take cnfs-yve-fvlnnbi pain medications as needed for discomfort. 5. [...] the office at . 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 Jhonson Dysphagia Dr. Stiles Ectopic 1991 GERD (gastroesophageal reflux disease) History of prediabetes Hyperlipidemia Hypertension Hypothyroidism Obesity (BMI 30.0-34.9) Other pulmonary embolism without acute cor pulmonale (HCC) Pneumonia [place] [facility] [place] Requiring intubation Previous [...] Cancer Brother lung Stroke Maternal Grandmother or [place], patient unsure Coronary Artery Disease Maternal Grandfather No Known Problems Sister Patient Allergies ALLERGIES Allergen Reactions Meagan Inhibitors Rash Codeine Vomiting, Other: See Comments Headache Remeron [Mirtazapin* Other: See Comments Fatigue Wrwbqig-Sma-Ofi Red* Myalgia [place] Unknown Zetia [Ezetimibe] Myalgia Current Medications Current [...] and 3 months after surgery. mv,jaci,iron,mn/folic acid/chol (TFIF-VAFI-RBBCA, PABA, ORAL) Take 1 tablet by mouth [...] 1-15 Girish Lemos MD documented in this encounterCoshocton Regional Medical Center12-23-2022 Miscellaneous Notes* Telephone Encounter [...] Scripts instead. Thank you. documented in this encounterCoshocton Regional Medical Center12-07-2022 Miscellaneous Notes* Telephone Encounter [...] normal range. Continue current medications. Jeanette Berrios APRN.DIA documented in this encounterCoshocton Regional Medical Center12-06-2022 Instructions* Patient Instructions* Jeanette [...] your usual activities immediately. 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 Johnson Dysphagia Dr. Stiles Ectopic 1991 GERD (gastroesophageal reflux disease) History of prediabetes Hyperlipidemia Hypertension Hypothyroidism Obesity (BMI 30.0-34.9) Other pulmonary embolism without acute cor pulmonale (HCC) Pneumonia due to COVID-19 virus Requiring intubation ALLERGIES Meagan Inhibitors, Codeine, Remeron [Mirtazapine], Evpgexe-Qpu-Htd Reductase Inhibitors, [place], and Zetia [Ezetimibe] MEDICATIONS Current Outpatient Medications [...] not taking: Reported on 08/22/2022) mv,jaci,iron,mn/folic acid/chol (GDBY-ZJRQ-DYNJD, PABA, ORAL) Take 1 tablet by mouth [...] Abs Lymph 1.00 - 4.00 k/uL 1.37 Coleman% % 11.0 Abs Coleman <0.87 k/uL 1.67 (H) Eosin% % 0.0 Abs Eosin <0.46 k/uL 0.00 Baso% % 0.0 Abs Baso <0.11 k/uL 0.00 [place]% % 2.0 Myelo% % 1.0 Left Shift [...] ICD10: N94.10 - recommend she follow-up with [facility] REGENERATOR OPERATOR 10. Abnormal vaginal bleeding in postmenopausal patient - ICD9: 627.1, ICD10: N95.0 - follow-up with [facility] REGENER[facility] OPERATOR Jeanette Berrios APRN.DIA Prescription instructions reviewed with [...] which included preparing to see the patient, tpft-hm-mjxt patient care, completing clinical documentation, obtaining and/or reviewing separately obtained history, performing a medically appropriate examination, counseling and educating the pat ient/family/caregiver, and ordering medications, tests, or procedures. documented in this encounterCoshocton Regional Medical Center11-18-2022 Miscellaneous Notes* Telephone Encounter - Jen Patiño [...] tablets daily Please review and advise. Jen Haroon Pss documented in this encounterCoshocton Regional Medical Center11-09-2022 Miscellaneous Notes* Telephone Encounter - Rosie Mcintosh APRN.CNP - 07/26/2022 10:20 AM EST Patient says her symptoms are gone at this time. Patient was instructed if symptoms return that sheshould come back and have another urine sample done. documented in this encounterCoshocton Regional Medical Center11-07-2022 Instructions* Patient Instructions* Jamaica Malone APRN.CNP - 07/24/2022 5:50 PM EST Use mycolog cream as needed for irritation Will send cultures and call with results and treatment needed documented in this encounterCoshocton Regional Medical Center11-07-2022 History of Present illness Narrative* Jamaica Malone APRN.CNP - 07/24/2022 5:37 PM EST Images from the original note were not included. Subjective The history is provided by the patient. No language assistant was used. 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 Johnson Dysphagia Dr. Stiles Ectopic 1991 GERD (gastroesophageal reflux disease) History of prediabetes Hyperlipidemia Hypertension Hypothyroidism Obesity (BMI 30.0-34.9) Other pulmonary embolism without acute cor pulmonale (HCC) Pneumonia due to COVID-19 virus Requiring intubation I have confirmed and edited as necessary, the [facility] Review of Systems Constitutional: Negative for chills, fever and malaise/fatigue. Gastrointestinal: Negative for abdominal pain. Genitourinary: Positive for hematuria. Negative for dysuria, flank pain, frequency and urgency. Objective Physical Exam Vitals and nursing note reviewed. Exam conducted with a automobile or truck rental dispatcher present. Constitutional: Appearance: Normal appearance. HENT: Mouth/Throat: [...] evaluation. Jamaica Malone APRN.CNP documented in this encounterCoshocton Regional Medical Center11-07-2022 Miscellaneous Notes* Telephone Encounter - Jeanette Berrios APRN.CNP - 07/24/2022 4:27 PM EST Reviewed. Jeanette Berrios APRN.CNP * Telephone Encounter - Phylicia Heredia RN - 07/24/2022 4:18 PM EST Patient calls for urinary symptoms(urgency, painful urination, and blood in urine). Nurse triage completed. Protocol recommends see provider within 24 hours. Appointment offered. Patient decided to go to [facility] for evaluation and treatment. Reason for [...] discharge or genital sores. Protocols used: Urinary Gwphbwgm-CLJPN-SD, Urination Pain - Pxlfpz-SNIUY-JU documented in this encounterCoshocton Regional Medical Center07-07-2022 History of Present illness Narrative* Girish Lemos MD - 03/23/2022 10:53 AM EDT Chief Complaint Patient presents with: URI: x 1 week HPI Betsy Rodrigez is a 66 year old female who presents here today for Above Complaints. 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 mv,jaci,iron,mn/folic acid/chol (JSKA-CXWZ-CYSSU, PABA, ORAL) Take 1 tablet by mouth [...] SPRAY,SUSPENSION Girish Lemos MD documented in this encounterCoshocton Regional Medical Center07-07-2022 Miscellaneous Notes* Telephone Encounter [...] Covid in Jun 2020. 6. FEVER: Fever 03/21. Reports her forehead feels warm, but she [...] was recently on prolonged travel down to [place]. 10. OTHER SYMPTOMS: Pt reports runny nose, slight fever, nausea, diarrhea, eyes watering/red/blood shot/with pus, fatigue, weak, O2 93% on 1.5 L, slight headache. Pt denies wheezing, chest pain. 11. : Postmenopausal. 12. TRAVEL: Just came back from [place] on Sunday, states no one tested positive down there. Protocols used: COUGH - ACUTE SEQJNLRKRR-CBWKJ-UZ documented in this encounterCoshocton Regional Medical Center06-08-2022 Miscellaneous Notes* Telephone Encounter - Chacho Ambriz LPN - 02/22/2022 11:33 AM EDT Spoke with pt and information listed below given. Pt verbalizes understanding. Chacho Ambriz LPN * Telephone Encounter - Jeanette Berrios APRN.CNP - 02/22/2022 8:54 AM EDT She will need to check with her insurance company as see what is covered. Jeantete Berrios APRN.CNP * Telephone Encounter - Bailee Zacarias Pss [...] patient. Bailee Zacarias Pss documented in this encounterCoshocton Regional Medical Center03-11-2022 History of Present illness [...] 25, 2021 11:18 AM documented in this encounterCoshocton Regional Medical CenterConsult note Author Huan Billy [facility] Note Date/Time February 16, 2025 8:12a [facility] Medical Records Department [address] [place] [address] Pre-Anesthesia Evaluation 02/16/25 0809 MR#: [id number] Acct: [id number] Name: BETSY RODRIGEZ Rep #:[id number] : 1955 69 From: Huan Billy MD PCP: Dr. Fabricio Lemos MD Status :REG SDC Y Race: C Location: [place] [address] ASA Classification* ASA Classification ASA Classification: 3 [...] UNDER FLUOROSCOPY Anesthesia History Anesthesia History - container coordinator: Anesthesia History - container coordinator Hx Hospitalization Yes: 12/2024 DUE TO REACTION [...] take am of surgery PONV PONV - container coordinator: PONV - container coordinator Female Yes 02/11/25 15:02 HX of Motion [...] 02/16/25 07:38 Respiratory Assessment Respiratory Assessment - container coordinator: Respiratory Tract Infection Hx - container coordinator Hx Respiratory Tract Infection No 02/11/25 15:02 STOP Sleep Apnea STOP Sleep Apnea - container coordinator: STOP Sleep Apnea - container coordinator Hx Hypertension Yes: CONTROLLED WITH MED 02/11/25 [...] Tobacco Use History Tobacco Use History - container coordinator: Tobacco Use History - container coordinator Tobacco Use Smoking Status Former smoker 02/11/25 15:02 Hx Tobacco Use No 02/11/25 15:02 Years Smoking Packs Smoked per Day Smoking Cessation Date was Yes - quit smoking within 15 02/11/25 15:02 within the last 15 years years Hx Smoking Cessation Date 09/17/15 02/11/25 15:02 Hx Smoking Cessation No 02/11/25 15:02 Counseling Hematologic Medial History 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 Hx of Blood Transfusion No 02/11/25 15:02 [...] confused, unrespo /Reproduction History /Reproductive History - container coordinator: /Reproductive Hx- container coordinator Hx Now No 02/11/25 15:02 Gestational Age [...] Allergy prednisone AdvReac Other Verified 02/16/25 07:36 Xycbdaw-ENP-PvV Reductase AdvReac cramps Verified 02/16/25 07:36 Inhibitor (Znduqlg-Orp-Lut Reductase Inhibitor) Family History Mother Cancer Hx [...] MD Cosigner Signature: Date CC: ~ Signed [facility] Work Phone: Consult note Author Daniel Sevilla [facility] Note Date/Time February 16, 2025 8:55a [facility] Medical Records Department [address] [place] [address] Anesthesia Postop Eval I 02/16/25 0854 MR#: [id number] Acct: [id number] Name: BETSY RODRIGEZ Rep #:[id number] : 1955 69 From: Daniel Sevilla PCP: Dr. Fabricio Lemos MD Status :REG SDC Y Race: C Location: [place] [address] Anesthesia: Postop Eval I Current Vital Signs [...] Anesthesia document: Postop Eval 1 completed: Yes 02/16/25 0855 <Electronically signed by Daniel Sevilla > Date _ Daniel Mendoza Signature: Date CC: ~ Signed [facility] Work Phone: Consult note Author Huan Billy [facility] Note Date/Time February 16, 2025 9:34a m [facility] Medical Records Department [address] [facility] [place] [address] Anesthesia Postop Eval II 02/16/25900 MR#: [id number] Acct: [id number] Name: BETSY RODRIGEZ Rep #:[id number] : 1955 69 From: Huan Billy MD PCP: Dr. Fabricio Lemos MD Status :REG [facility] [place] Race: C Location: [place] [address] Anesthesia Postop Eval I Sum Postop Eval [...] MD Cosigner Signature: Date CC: ~ Signed [facility] Work Phone: Discharge summary Author Jassi Borden [facility] Note Date/Time January 10, 2025 2:2 8pm [facility] Medical Records Department [address] [place] [address] Instructions for Home/Discharge Instructions 01/10/25 1425 MR#: [id number] Acct: [id number] Name: ELIABETSY M Rep #:[id number] : 1955 69 From: [...] can be placed): Home, Self Care 01/10/25 5249<Electronically signed by Jassi Borden MD>Jassi Borden MD CC: Dr. Fabricio Lemos MD; Dr. Estrella Cabezas MD ~ Signed [facility] Work Phone: Discharge summary Author Jassi Borden [facility] Note Date/Time January 10, 2025 2:3 9pm [facility] Medical Records Department [address] [place] [address] Discharge Summary 01/10/25 1428 MR#: [id number] Acct: [id number] Name: BETSY RODRIGEZ Rep #:[id number] : 1955 69 From: Jassi Schneider PCP: Dr. Fabricio Lemos MD Status :ADM FARIBA Location: [facility] [place] [address] Providers Date of Admission: 01/09/25 Date of [...] PRN port access 30 days #30 grams 03/31/25 prochlorperazine maleate 10 mg tablet 10 mg [...] 01/10/25 14:09 RMA (Rec: 01/10/25 14:09 RMA [id number]) Nutrition Malnutrition Evidence of Yes Malnutrition Exists [...] 93.2 H, Lymph % (Auto) 4.7 L, Coleman % (Auto) 0.2, Eos % (Auto) 0.0, [...] relate to congestion and edema. Reading Location: [facility] Echocardiogram 01/09/25 20:22 Interpretation Summary The LV [...] Self Care Charges/Coding Visit Charges Inpatient E&M: 34120 Disch Hosp >30min 01/10/25 1439 <Electronically signed by Jassi Borden MD> Cosigner Signature (if applicable): CC: Dr. Fabricio Lemos MD; Dr. Jassi Borden MD~ Signed [facility] Work Phone: evaluation note* Diagnosis Onset Date Resolution Status Respiratory insufficiency ac iroquois Smoking greater than 40 pack years acute [facility] Work Phone: evaluation note* Diagnosis Suspected COVID-19 virus infection- Primary Non-seasonal allergic rhinitis, unspecified trigger documented in this encounter [facility] note* Diagnosis Gross hematuria- Primary Acute vaginitis Vaginitis and vulvovaginitis, unspecified Vulvar irritation Other specified noninflammatory disorder of vulva and perineum documented in this encounter [facility] note* Diagnosis Acquired hypothyroidism Unspecified hypothyroidism Essential hypertension Unspecified essential hypertension [facility]* Diagnosis Encounter for screening mammogram for breast cancer documented in this encounter [facility] note* Diagnosis Essential hypertension- Primary [...] in postmenopausal patient [facility] Diagnosis Ringworm of body Dermatophytosis of the body Acquired hypothyroidism Unspecified hypothyroidism Essential hypertension Unspecified essential hypertension [facility] Diagnosis Onset Date Resolution Status Influenza acute [facility] Work Phone: Evaluation note* Diagnosis Skin tag- Primary Unspecified hypertrophic and atrophic condition of skin S/P cryotherapy of skin lesion [facility] Diagnosis Onset Date Resolution Status Bronchiectasis acute Smoking greater than 40 pack years [facility] Work Phone: Evaluation note* Diagnosis Hammertoe of left foot- Primary Pain in toe of left foot Pain in limb Other acute pulmonary embolism, unspecified whether acute cor pulmonale present (HCC) [facility]* Diagnosis Essential hypertension- Primary Unspecified essential hypertension Prediabetes Other abnormal glucose Acquired hypothyroidism Unspecified hypothyroidism Hyperlipidemia, unspecified hyperlipidemia type Bradycardia Other specified cardiac dysrhythmias First degree AV block First degree atrioventricular block Stage 3 chronic kidney disease, unspecified whether stage 3a or 3b CKD (HCC) [facility]* Diagnosis Primary hypertension- Primary Unspecified essential hypertension Bradycardia Other specified cardiac dysrhythmias Skin eruption Rash and other nonspecific skin eruption [facility]* Diagnosis Acquired hypothyroidism Unspecified hypothyroidism Essential hypertension Unspecified essential hypertension [facility]* Diagnosis Screening for colon cancer- Primary Special screening for malignant neoplasms, colon documented [facility]* Diagnosis Onset Date Resolution Status Bronchiectasis acute COVID-19 acute Pulmonary fibrosis acute Pulmonary hypertension acute Smoking greater than 40 pack years acute [facility] Work Phone: Evaluation note* Diagnosis Essential hypertension- Primary Unspecified essential hypertension Encounter for immunization Need for other specified prophylactic vaccination against single bacterial disease Prediabetes Other abnormal glucose Acquired hypothyroidism Unspecified hypothyroidism Stage 3 chronic kidney disease, unspecified whether stage 3a or 3b CKD (HCC) First degree AV block First degree atrioventricular block [facility]* Diagnosis Pain Generalized pain [facility]* Diagnosis Screening for osteoporosis Special screening for osteoporosis documented in this encounter [facility] note* Diagnosis Encounter for screening mammogram for breast cancer documented in this encounter [facility] note* Diagnosis Acquired hypothyroidism Unspecified hypothyroidism Essential hypertension Unspecified essential hypertension documented in this encounter [facility] note* Diagnosis Essential hypertension- Primary Unspecified essential hypertension Non-seasonal allergic rhinitis, unspecified trigger Acquired hypothyroidism Unspecified hypothyroidism Hyperlipidemia, unspecified hyperlipidemia type Stage 3 chronic kidney disease, unspecified whether stage 3a or 3b CKD (HCC) Pulmonary hypertension (HCC) Other chronic pulmonary heart diseases Muscle cramps Cramp of limb documented in this encounter [facility] noteNo assessment information availableWBellevue [facility] Work Phone: [facility]* Diagnosis Essential hypertension Unspecified essential hypertension documented in this encounter [facility] note* Diagnosis Fever, unspecified fever cause Diarrhea, unspecified type Nausea Nausea alone Cough documented in this encounter [facility] note* Diagnosis Pneumonia due to infectious organism, unspecified laterality, unspecified part of lung documented in this encounter [facility] note* Diagnosis Encounter for screening mammogram for breast cancer documented in this encounter [facility] note* Diagnosis Acquired hypothyroidism Unspecified hypothyroidism documented in this encounter [facility] note* Diagnosis Essential hypertension- Primary [...] hypothyroidism Unspecified hypothyroidism documented in this encounter [facility] note* Diagnosis Essential hypertension Unspecified essential hypertension documented in this encounter [facility] note* Diagnosis Primary hypertension- Primary Unspecified essential hypertension documented in this encounter [facility] note* Diagnosis Generalized abdominal pain- Primary Abdominal pain, generalized Diarrhea, unspecified type Nausea Nausea alone Generalized abdominal pain Abdominal pain, generalized Diarrhea, unspecified type Nausea Nausea alone documented in this encounter [facility] note* Diagnosis Generalized abdominal pain Abdominal pain, generalized Diarrhea, unspecified type Nausea Nausea alone documented in this encounter [facility] note* Diagnosis Liver masses- Primary Unspecified disorder of liver RUQ abdominal pain Abdominal pain, right upper quadrant Nausea and vomiting, unspecified vomiting type Diarrhea, unspecified type documented [facility]* Diagnosis Abnormal MRI, liver- Primary Nonspecific (abnormal) findings on radiological and other examination of biliary tract documented [facility]* Diagnosis Liver masses Unspecified disorder of liver [facility]* Diagnosis Liver masses Unspecified disorder of liver documented [facility]* Diagnosis Generalized abdominal pain- Primary Abdominal [...] rectum and anus documented in this [facility]* Diagnosis Chest pain, unspecified type- Primary [...] Loss of weight [facility]* Diagnosis Viral URI with cough- Primary Acute upper respiratory infections of unspecified site Immunocompromised state (HCC) Unspecified immunity deficiency Viral URI with cough Acute upper respiratory infections of unspecified site documented [facility] this encounter [facility]* Diagnosis Viral URI with cough Acute upper respiratory infections of unspecified site documented in this encounter [facility]* Diagnosis Acquired hypothyroidism Unspecified hypothyroidism documented in this [facility]* Diagnosis Essential hypertension Unspecified essential hypertension documented in this encounter [facility]* Diagnosis Essential hypertension Unspecified essential hypertension [facility] Additional Instructions You were given IV fluids for dehydration. Continue taking your home nausea and pain medications. Follow-up with the oncologist at your appointment tomorrow.[facility] Work Phone: Hospital Discharge instructionsAdditional Instructions Recommend you follow-up with your primary care physician to order outpatient MRI of lumbar spine. Return to the ER for worsening pain, weakness in extremities, loss of bowel or bladder function, or condition worsen anyway.[facility] Work Phone: Reason for referral (narrative)* Diagnostic Procedure Only (Routine) - Pending Review Specialty Diagnoses / Procedures Referred By Zaida ayers Referred To Contact [facility] Diagnoses Encounter for screening mammogram for breast cancer Procedures LYN SCREENING SCREENING MAMMOGRAPHY BI 2-VIEW BREAST INC CAD Girish Lemos MD [address] [place] [address] [facility] [address] [place] [address] Referral ID Status Reason Start Date Expiration Date Visits Requested Visits Authorized [id number] Pending Review Auto-Generat ed Referral 08/17/2022 09/16/2023 1 1 [facility] for referral (narrative)* Outpatient Procedure (Routine) - Closed Specialty Diagnoses / Procedures Referred By Zaida t Referred To Contact [facility] Diagnoses Bradycardia Procedures ECG COMPLETE ECG ROUTINE ECG W/LEAST 12 LDS W/I&R MaksimlogarJeanette APRN.CNP [address] [place] [address] [facility] [address] [place] [id number] Referral ID Status Reason Start Date Expiration Date V isits Requested Visits Authorized [id number] Closed Auto-Generate d Referral 02/20/2023 02/20/2024 1 1 * Consult, Test, Treat (Routine) - Authorized Specialty Diagnoses / Procedures Referred By Zaida t Referred To Contact Cardiology Diagnoses Bradycardia First degree AV block Procedures CONSULT TO CARDIOLOGY OFFICE[facility] 60[facility]74 [facility]UTES Jeanette Berrios APRN.CNP [address] [place] [address] Referral ID Status Reason Start Date Expiration Date Visits Requested Visits Authorized [id number] Authorized PCP Requested Referral 02/20/2023 02/20/2024 1 1 [facility] for referral (narrative)* Diagnostic Procedure Only (Routine) - Closed Specialty Diagnoses / Procedures Referred By Contac t Referred To Contact [facility] Diagnoses Pain Procedures XR FOOT GENERAL 3V AP/LAT/OBL LEFT RADEX FOOT COMPLETE MINIMUM 3 VIEWS Talat Merida [address] [place] [address] [place] [address] Referral ID Status Reason Start Date Expiration Date V isits Requested Visits Authorized [id number] Closed Auto-Generate d Referral 01/04/2023 02/03/2024 1 1 [facility] for referral (narrative)* Diagnostic Procedure Only (Routine) - Pending Review Specialty Diagnoses / Procedures Referred By Zaida t Referred To Contact [facility] Diagnoses Encounter for screening mammogram for breast cancer Procedures LYN SCREENING SCREENING MAMMOGRAPHY BI 2-VIEW BREAST INC Girish Espinal MD [address] [place] [address] [facility] [address] [place] [address] Referral ID Status Reason Start Date Expiration Date Visits Requested Visits Authorized [id number] Pending Review Auto-Generat ed Referral 07/25/2023 08/23/2024 1 1 [facility] for referral (narrative)* Diagnostic Procedure Only (Routine) - New Request Specialty Diagnoses / Procedures Referred By Contac t Referred To Contact [facility] Diagnoses Encounter for screening mammogram for breast cancer Procedures LYN SCREENING W ANT SCREENING DIGITAL BREAST TOMOSYNTHESIS BI SCREENING MAMMOGRAPHY BI 2-VIEW BREAST INC Girish Espinal MD [address] [place] [address] [facility] [address] [place] [address] Referral ID Status Reason Start Date Expiration Date Visits Requested Visits Authorized [id number] New Request Auto-Generat ed Referral 06/25/2024 07/25/2025 1 1 [facility]No reason for referral information availableWBellevue Hospital Work Phone: Reason for visit Narrative* Diagnostic Procedure Only (Routine) - Closed Specialty Diagnoses / Procedures Referred By Contac t Referred To Contact [facility] IMAG[facility] Diagnoses Pain Procedures XR FOOT GENERAL 3V AP/LAT/OBL LEFT RADEX FOOT COMPLETE MINIMUM 3 VIEWS Talat Merida [address] [place] [address] [place] [address] Referral ID Status Reason Start Date Expiration Date V isits Requested Visits Authorized [id number] Closed Auto-Generate d Referral 01/04/2023 02/03/2024 1 1 [facility] Summary Purpose Family History No Family History Records Found Relationship Condition Age at Onset Recorded Date/T chris mother Malignant neoplasm Unknown father Malignant neoplasm Unknown Advance Directives No Advanced Directives Records Found Advance Directive Response Recorded Date/ Time Advance Directives No October 11:59pm Living Will No November 17, 2021 12:21pm Power of Refrigeration [place] No November 17 12:21pm Advance Directive Response Recorded Date/ Time Advance Directives No October 10:59pm Living Will No September 13, 022 6:53am Power of Refrigeration [place] No September 13, 2022 6:53am Advance Directive Response Recorded Date/ Time Advance Directives No October 11:59pm Living Will No September 13, 2 022 7:53am Power of Refrigeration [place] No September 13, 2022 7:53am Advance Directive Response Recorded Date/ Time Living Will No May 28, 2024 11:58am Power of Refrigeration [place] No May 11:58am Living Will No November 12, 025 2:53pm Power of Refrigeration [place] No November 12, 2024 2:53pm Living Will No November 23, 2024 4:39pm Power of Refrigeration [place] No November 23 4:39pm Advance Directives No October 11:59pm Advance Directive Response Recorded Date/ Time Living Will No May 28, 2024 11:58am Do you have a Healthcare Power of Refrigeration [place]? No May 28, 2024 11:58am Advance Directives No December 09 11:48am Living Will No November 12 2:53pm Do you have a Healthcare Power of Refrigeration [place]? No November 12, 2024 2:53pm Living Will No November 28, 2024 8:45am Do you have a Healthcare Power of Refrigeration [place]? No November 28, 2024 8:45am Living Will No November 23, 2024 4:39pm Do you have a Healthcare Power of Refrigeration [place]? No November 23, 2024 4:39pm Advance Directive Response Recorded Date/ Time Living Will No May 28, 2024 11:58am Do you have a Healthcare Pow er of Refrigeration [place]? No May 28, 2024 11:58am Advance Directives No December 09 11:48am Living Will No November 12 2:53pm Do you have a Healthcare Pow er of Refrigeration [place]? No November 12, 2024 2:53pm Living Will No November 28, 2024 8:45am Do you have a Healthcare Pow er of Refrigeration [place]? No November 28, 2024 8:45am Living Will No November 23, 2024 4:39pm Do you have a Healthcare Pow er of Refrigeration [place]? No November 23, 2024 4:39pm Living Will Yes December 11, 2024 8:45am Do you have a Healthcare Pow er of Refrigeration [place]? Yes December 11, 2024 8:45am Name of Medical Power of Refrigeration [place] SON AND DAUGHT ER December 11, 2024 8:45am Advance Directive Response Recorded Date/ Time Living Will No May 28, 2024 11:58am Do you have a Healthcare Pow er of Refrigeration [place]? No May 28, 2024 11:58am Living Will No November 12 2:53pm Do you have a Healthcare Pow er of Refrigeration [place]? No November 12, 2024 2:53pm Living Will No January 09, 2025 2:14pm Do you have a Healthcare Pow er of Refrigeration [place]? No January 09, 2025 2:14pm Advance Directives No January 09 2:14pm Living Will No November 23, 2024 4:39pm Do you have a Healthcare Pow er of Refrigeration [place]? No November 23, 2024 4:39pm Living Will Yes December 11, 2024 8:45am Do you have a Healthcare Pow er of Refrigeration [place]? Yes December 11, 2024 8:45am Name of Medical Power of Refrigeration [place] SON AND DAUGHT ER December 11, 2024 8:45am Do you have a Healthcare Pow er of Refrigeration [place]? Yes January 09, 2025 8:02pm Name of Medical Power of Refrigeration [place] Goyo laguerre January 09, 2025 4:01pm Advance Directive Response Recorded Date/ Time Living Will No May 28, 2024 11:58am Do you have a Healthcare Pow er of Refrigeration [place]? No May 28, 2024 11:58am Living Will No November 12 025 2:53pm Do you have a Healthcare Pow er of Refrigeration [place]? No November 12, 2024 2:53pm Living Will No February 06, 2025 1 2:18pm Do you have a Healthcare Pow er of Refrigeration [place]? No February 06, 2025 12:18pm Advance Directives No February 06 12:18pm Do you have a Healthcare Pow er of Refrigeration [place]? Yes February 11, 2025 3:02pm Living Will No November 23, 2024 4:39pm Do you have a Healthcare Pow er of Refrigeration [place]? No November 23, 2024 4:39pm Living Will Yes December 11, 2024 8:45am Do you have a Healthcare Pow er of Refrigeration [place]? Yes December 11, 2024 8:45am Name of Medical Power of Refrigeration [place] SON AND DAUGHT ER December 11, 2024 8:45am Do you have a Healthcare Pow er of Refrigeration [place]? Yes January 09, 2025 8:02pm Name of Medical Power of Refrigeration [place] Goyo laguerre January 09, 2025 4:01pm Advance Directive Response Recorded Date/ Time Living Will No May 28, 2024 11:58am Do you have a Healthcare Pow er of Refrigeration [place]? No May 28, 2024 11:58am Living Will No November 12 025 2:53pm Do you have a Healthcare Pow er of Refrigeration [place]? No November 12, 2024 2:53pm Living Will No February 24, 2025 8:19am Do you have a Healthcare Pow er of Refrigeration [place]? No February 24, 2025 8:19am Advance Directives No February 24 8:19am Do you have a Healthcare Pow er of Refrigeration [place]? Yes February 11, 2025 3:02pm Living Will No November 23, 2024 4:39pm Do you have a Healthcare Pow er of Refrigeration [place]? No November 23, 2024 4:39pm Living Will Yes December 11, 2024 8:45am Do you have a Healthcare Pow er of Refrigeration [place]? Yes December 11, 2024 8:45am Name of Medical Power of Refrigeration [place] SON AND DAUGHT ER December 11, 2024 8:45am Do you have a Healthcare Pow er of Refrigeration [place]? Yes January 09, 2025 8:02pm Name of Medical Power of Refrigeration [place] Goyo Rodrigez Gama laguerre January 09, 2025 4:01pm Advance Directive Response Recorded Date/ Time Living Will No February 27, 2025 2:42pm Do you have a Healthcare Pow er of Refrigeration [place]? No February 27, 2025 2:42pm Advance Directives No February 27 2:42pm Do you have a Healthcare Pow er of Refrigeration [place]? Yes February 11, 2025 3:02pm Living Will No November 23, 2024 4:39pm Do you have a Healthcare Pow er of Refrigeration [place]? No November 23, 2024 4:39pm Living Will Yes December 11, 2024 8:45am Do you have a Healthcare Pow er of Refrigeration [place]? Yes December 11, 2024 8:45am Name of Medical Power of Refrigeration [place] SON AND DAUGHT ER December 11, 2024 8:45am Do you have a Healthcare Pow er of Refrigeration [place]? Yes January 09, 2025 8:02pm Name of Medical Power of Refrigeration [place] Goyo Rodrigez Gama laguerre January 09, 2025 4:01pm Advance Directive Response Recorded Date/ Time Living Will No March 19, 2025 2 :43pm Do you have a Healthcare Pow er of Refrigeration [place]? No March 19, 2025 2:43pm Advance Directives No March 19 2:43pm Do you have a Healthcare Pow er of Refrigeration [place]? Yes February 11, 2025 3:02pm Do you have a Healthcare Pow er of Refrigeration [place]? Yes April 05, 2025 8:09pm Living Will Yes December 11, 2024 8:45am Do you have a Healthcare Pow er of Refrigeration [place]? Yes December 11, 2024 8:45am Name of Medical Power of Refrigeration [place] SON AND DAUGHT ER December 11, 2024 8:45am Do you have a Healthcare Pow er of Refrigeration [place]? Yes January 09, 2025 8:02pm Name of Medical Power of Refrigeration [place] Goyo damonband January 09, 2025 4:01pm Advance Directive Response Recorded Date/ Time Living Will No April 06, 2025 1:25pm Do you have a Healthcare Pow er of Refrigeration [place]? No April 06, 2025 1:25pm Advance Directives No April 06 1:25pm Do you have a Healthcare Pow er of Refrigeration [place]? Yes February 11, 2025 3:02pm Do you have a Healthcare Pow er of Refrigeration [place]? Yes April 05, 2025 8:09pm Living Will Yes December 11, 2024 8:45am Do you have a Healthcare Pow er of Refrigeration [place]? Yes December 11, 2024 8:45am Name of Medical Power of Refrigeration [place] SON AND DAUGHT ER December 11, 2024 8:45am Do you have a Healthcare Pow er of Refrigeration [place]? Yes January 09, 2025 8:02pm Name of Medical Power of Refrigeration [place] Goyo damonband January 09, 2025 4:01pm Advance Directive Response Recorded Date/ Time Living Will No April 06, 2025 1:25pm Do you have a Healthcare Pow er of Refrigeration [place]? No April 06, 2025 1:25pm Advance Directives No April 06 1:25pm Do you have a Healthcare Pow er of Refrigeration [place]? Yes February 11, 2025 3:02pm Do you have a Healthcare Pow er of Refrigeration [place]? Yes April 05, 2025 8:09pm Do you have a Healthcare Pow er of Refrigeration [place]? Yes January 09, 2025 8:02pm Name of Medical Power of Refrigeration [place] Goyo damonband January 09, 2025 4:01pm Chief Complaint and [...] lymph node metastasis present [facility] 2024 2:38pm 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 24, 2024 2:38pm Bilateral lower extremity edema December [id number] 12:19pm Jaundice December 02, 2024 12: 19pm Metastasis to bone December 02, 2024 12: 19pm Metastasis to liver December 02, 2024 12: 19pm Regional lymph node metastasis present [facility] 2024 12:19pm Small cell lung cancer December 02, 2024 12:19pm Bilateral lower extremity edema December [id number] 9:51am Metastasis to bone December 09, 2024 9:5 1am Metastasis to liver December 09, 2024 9:5 1am Regional lymph node metastasis present [facility] 2024 9:51am Small cell lung cancer December [...] lymph node metastasis present [facility] 2024 2:38pm 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 24, 2024 2:38pm Jaundice November 24, 2024 2:3 8pm Bilateral lower extremity edema December [id number] 12:19pm Metastasis to bone December 02, 2024 12: 19pm Metastasis to liver December 02, 2024 12: 19pm Regional lymph node metastasis present [facility] 2024 12:19pm Small cell lung cancer December 02, 2024 12:19pm Jaundice December 02, 2024 12: 19pm Bilateral lower extremity edema December [id number] 9:51am Metastasis to bone December 09, 2024 9:5 1am Metastasis to liver December 09, 2024 9:5 1am Regional lymph node metastasis present [facility] 2024 9:51am Small cell lung cancer December [...] 8pm Regional lymph node metastasis present [facility] 2024 2:38pm Jaundice November 24, 2024 2:3 8pm Bilateral lower extremity edema December [id number] 12:19pm Small cell lung cancer December 02, 2024 12:19pm Metastasis to bone December 02, 2024 12: 19pm Metastasis to liver December 02, 2024 12: 19pm Regional lymph node metastasis present [facility] 2024 12:19pm Jaundice December 02, 2024 12: 19pm Bilateral lower extremity edema December [id number] 9:51am Small cell lung cancer December 09, 2024 9:51am Metastasis to bone December 09, 2024 9:5 1am Metastasis to liver December 09, 2024 9:5 1am Regional lymph node metastasis present [facility] 2024 9:51am Encounter for insertion of [...] am Regional lymph node metastasis present A pri 2024 7:48am Port-A-Cath in place December 22, [...] am Regional lymph node metastasis present [facility] 2024 7:52am Chief Complaint Admit Date WEAKNESS [...] 19pm Regional lymph node metastasis present [facility] 2024 12:19pm Jaundice December 02, 2024 12: 19pm Bilateral lower extremity edema December [id number] 9:51am Small cell lung cancer December 09, 2024 9:51am Metastasis to bone December 09, 2024 9:5 1am Metastasis to liver December 09, 2024 9:5 1am Regional lymph node metastasis present [facility] 2024 9:51am Encounter for insertion of [...] am Regional lymph node metastasis present [facility] 2024 7:52am 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, 2025 7:48am Metastasis to bone March 16, 2025 7:48 am Metastasis to liver March 16, 2025 7:48 am Regional lymph node metastasis present [facility] 2024 7:48am Chief Complaint Admit Date TOX [...] 1am Regional lymph node metastasis present [facility] 2024 9:51am Encounter for insertion of [...] am Regional lymph node metastasis present [facility] 2024 7:52am 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, 2025 7:48am Metastasis to bone March 16, 2025 7:48 am Metastasis to liver March 16, 2025 7:48 am Regional lymph node metastasis present [facility] 2024 7:48am Anemia April 06, 2025 9:34 am 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 April 06, 2025 9:34am Left leg weakness April 06, 2025 9:34 am Metastasis to bone April 06, 2025 9:34 am Metastasis to liver April 06, 2025 9:34 am Regional lymph node metastasis present [facility] 2024 9:34am Chief Complaint Admit Date Insertion, Vascular Port right poss left December [...] - ATEZO April 06, 2025 9:3 4am LEFT HIP PAIN April 06, 2025 2:40 pm Reason for Visit Admit Date Bilateral lower extremity edema December 7:48am Encounter [...] node metastasis present J [facility] 2024 9:34am Chief Complaint Admit Date 3 WKS - LABS - CARBO/ETOP December [...] - ATEZO April 06, 2025 9:3 4am LEFT HIP PAIN April 06, 2025 2:40 pm CONSULT - BONE METS April 13, 2025 10:5 1am Reason for Referral Specialty Diagnoses / Procedures Referred By Contac t Referred To Contact Gastroenterology Diagnoses Screening for colon cancer Procedures CONSULT TO [facility]OLOGY OFFICE[facility] 60-74 [facility]UTES Girish Lemos MD [address] [place] [id number] Referral ID Status Reason Start Date Expiration Date Visits Requested Visits Authorized [id number] Authorized PCP Requested Referral 05/07/2023 05/06/2024 1 1 Specialty Diagnoses / Procedures Referred By Contac t Referred To Contact CT IMAGING Diagnoses Generalized abdominal pain Diarrhea, unspecified type Nausea Procedures CT ABD/PEL W IVCON CT ABD & PELVIS W/CONTRAST 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, 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 [address] [place], [place] [id number] [facility] [place] [address] Referral ID Status Reason Start Date Expiration Date V isits Requested Visits Authorized [id number] Closed Auto-Generate d Referral 10/16/2024 11/15/2025 1 1 Specialty Diagnoses / Procedures Referred By Contac t Referred To Contact Oncology Diagnoses Liver masses Procedures CONSULT TO [facility]COL[facility]Y OFFICE[facility] 60 MINUTES Girish Lemos MD [address] [place] [id number] Referral ID Status Reason Start Date Expiration Date Visits Requested Visits Authorized [id number] Authorized PCP Requested Referral 10/17/2024 10/17/2025 1 1 Specialty Diagnoses / Procedures Referred By Contac t Referred To Contact Diagnoses Nausea and vomiting, unspecified vomiting type Girish Lemos MD [address] [place] [id number] Referral ID Status Reason Start Date Expiration Date Visits Re quested Visits Authorized [id number] Closed 1 1 Specialty Diagnoses / Procedures Referred By Contac t Referred To Contact CT IMAGING Diagnoses Liver masses Procedures CT CHEST W IVCON DIAGNOSTIC COMPUTED TOMOGRAPHY THORAX W/CONTRAST Girish Lemos MD [address] [place] [address] [place] [address] Referral ID Status Reason Start Date Expiration Date Visits Requested Visits Authorized [id number] Authorized Auto-Generat ed Referral 10/17/2024 11/16/2025 1 1 Specialty Diagnoses / Procedures Referred By Contac t Referred To Contact Diagnoses Abnormal MRI, liver Procedures CONSULT TO [facility]PATOLOGY OFFICE[facility] 60 MINUTES 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 [address] [place] [address] Referral ID Status Reason Start Date Expiration Date Visits Requested Visits Authorized [id number] Authorized PCP Requested Referral 10/16/2024 10/16/2025 1 1 Additional Source Comments INFORMATION SOURCE (unrecogn ized section and content) DATE CREATED AUTHOR 09/10/2020 [facility] DATE CREATED AUTHOR AUTHOR'S ORGANIZ ATION 06/14/2024 [facility] DATE CREATED AUTHOR AUTHOR'S ORGANIZ ATION 01/31/2025 [facility] DATE CREATED AUTHOR AUTHOR'S ORGANIZ ATION 04/17/2025 [facility] Goals (unrecognized section and content) Goals [...] or prosecute any alcohol or drug abuse patient.[facility] Center[facility] the event this information is protected by the Federal Confidentiality of Alcohol and Drug Abuse Patient Records regulations: The Federal rules restrict any use of the information to criminally investigate or prosecute any alcohol or drug abuse patient.[facility] CenterIn the event this information is protected by the Federal Confidentiality of Alcohol and Drug Abuse Patient Records regulations: The Federal rules restrict any use of the information to criminally investigate or prosecute any alcohol or drug abuse patient.[facility] CenterIn the event this information is protected by the Federal Confidentiality of Alcohol and Drug Abuse Patient Records regulations: The Federal rules restrict any use of the information to criminally investigate or prosecute any alcohol or drug abuse patient.[facility] CenterIn the event this information is protected by the Federal Confidentiality of Alcohol and Drug Abuse Patient Records regulations: The Federal rules restrict any use of the information to criminally investigate or prosecute any alcohol or drug abuse patient.[facility] CenterIn the event this information is protected by the Federal Confidentiality of Alcohol and Drug Abuse Patient Records regulations: The Federal rules restrict any use of the information to criminally investigate or prosecute any alcohol or drug abuse patient.[facility] CenterIn the event this information is protected by the Federal Confidentiality of Alcohol and Drug Abuse Patient Records regulations: The Federal rules restrict any use of the information to criminally investigate or prosecute any alcohol or drug abuse patient.[facility] CenterIn the event this information is protected by the Federal Confidentiality of Alcohol and Drug Abuse Patient Records regulations: The Federal rules restrict any use of the information to criminally investigate or prosecute any alcohol or drug abuse patient.[facility] CenterIn the event this information is protected by the Federal Confidentiality of Alcohol and Drug Abuse Patient Records regulations: The Federal rules restrict any use of the information to criminally investigate or prosecute any alcohol or drug abuse patient.[facility] CenterIn the event this information is protected by the Federal Confidentiality of Alcohol and Drug Abuse Patient Records regulations: The Federal rules restrict any use of the information to criminally investigate or prosecute any alcohol or drug abuse patient.[facility] CenterIn the event this information is protected by the Federal Confidentiality of Alcohol and Drug Abuse Patient Records regulations: The Federal rules restrict any use of the information to criminally investigate or prosecute any alcohol or drug abuse patient.[facility] CenterIn the event this information is protected by the Federal Confidentiality of Alcohol and Drug Abuse Patient Records regulations: The Federal rules restrict any use of the information to criminally investigate or prosecute any alcohol or drug abuse patient.[facility] CenterIn the event this information is protected by the Federal Confidentiality of Alcohol and Drug Abuse Patient Records regulations: The Federal rules restrict any use of the information to criminally investigate or prosecute any alcohol or drug abuse patient.[facility] CenterIn the event this information is protected by the Federal Confidentiality of Alcohol and Drug Abuse Patient Records regulations: The Federal rules restrict any use of the information to criminally investigate or prosecute any alcohol or drug abuse patient.[facility] CenterIn the event this information is protected by the Federal Confidentiality of Alcohol and Drug Abuse Patient Records regulations: The Federal rules restrict any use of the information to criminally investigate or prosecute any alcohol or drug abuse patient.[facility] CenterIn the event this information is protected by the Federal Confidentiality of Alcohol and Drug Abuse Patient Records regulations: The Federal rules restrict any use of the information to criminally investigate or prosecute any alcohol or drug abuse patient.[facility] CenterIn the event this information is protected by the Federal Confidentiality of Alcohol and Drug Abuse Patient Records regulations: The Federal rules restrict any use of the information to criminally investigate or prosecute any alcohol or drug abuse patient.[facility] CenterIn the event this information is protected by the Federal Confidentiality of Alcohol and Drug Abuse Patient Records regulations: The Federal rules restrict any use of the information to criminally investigate or prosecute any alcohol or drug abuse patient.[facility] CenterIn the event this information is protected by the Federal Confidentiality of Alcohol and Drug Abuse Patient Records regulations: The Federal rules restrict any use of the information to criminally investigate or prosecute any alcohol or drug abuse patient.[facility] CenterIn the event this information is protected by the Federal Confidentiality of Alcohol and Drug Abuse Patient Records regulations: The Federal rules restrict any use of the information to criminally investigate or prosecute any alcohol or drug abuse patient.[facility] CenterIn the event this information is protected by the Federal Confidentiality of Alcohol and Drug Abuse Patient Records regulations: The Federal rules restrict any use of the information to criminally investigate or prosecute any alcohol or drug abuse patient.[facility] CenterIn the event this information is protected by the Federal Confidentiality of Alcohol and Drug Abuse Patient Records regulations: The Federal rules restrict any use of the information to criminally investigate or prosecute any alcohol or drug abuse patient.[facility] CenterIn the event this information is protected by the Federal Confidentiality of Alcohol and Drug Abuse Patient Records regulations: The Federal rules restrict any use of the information to criminally investigate or prosecute any alcohol or drug abuse patient.[facility] CenterIn the event this information is protected by the Federal Confidentiality of Alcohol and Drug Abuse Patient Records regulations: The Federal rules restrict any use of the information to criminally investigate or prosecute any alcohol or drug abuse patient.[facility] CenterIn the event this information is protected by the Federal Confidentiality of Alcohol and Drug Abuse Patient Records regulations: The Federal rules restrict any use of the information to criminally investigate or prosecute any alcohol or drug abuse patient.[facility] CenterIn the event this information is protected by the Federal Confidentiality of Alcohol and Drug Abuse Patient Records regulations: The Federal rules restrict any use of the information to criminally investigate or prosecute any alcohol or drug abuse patient.[facility] CenterIn the event this information is protected by the Federal Confidentiality of Alcohol and Drug Abuse Patient Records regulations: The Federal rules restrict any use of the information to criminally investigate or prosecute any alcohol or drug abuse patient.[facility] CenterIn the event this information is protected by the Federal Confidentiality of Alcohol and Drug Abuse Patient Records regulations: The Federal rules restrict any use of the information to criminally investigate or prosecute any alcohol or drug abuse patient.[facility] CenterIn the event this information is protected by the Federal Confidentiality of Alcohol and Drug Abuse Patient Records regulations: The Federal rules restrict any use of the information to criminally investigate or prosecute any alcohol or drug abuse patient.[facility] CenterIn the event this information is protected by the Federal Confidentiality of Alcohol and Drug Abuse Patient Records regulations: The Federal rules restrict any use of the information to criminally investigate or prosecute any alcohol or drug abuse patient.[facility] CenterIn the event this information is protected by the Federal Confidentiality of Alcohol and Drug Abuse Patient Records regulations: The Federal rules restrict any use of the information to criminally investigate or prosecute any alcohol or drug abuse patient.[facility] CenterIn the event this information is protected by the Federal Confidentiality of Alcohol and Drug Abuse Patient Records regulations: The Federal rules restrict any use of the information to criminally investigate or prosecute any alcohol or drug abuse patient.[facility] CenterIn the event this information is protected by the Federal Confidentiality of Alcohol and Drug Abuse Patient Records regulations: The Federal rules restrict any use of the information to criminally investigate or prosecute any alcohol or drug abuse patient.[facility] CenterIn the event this information is protected by the Federal Confidentiality of Alcohol and Drug Abuse Patient Records regulations: The Federal rules restrict any use of the information to criminally investigate or prosecute any alcohol or drug abuse patient.[facility] CenterIn the event this information is protected by the Federal Confidentiality of Alcohol and Drug Abuse Patient Records regulations: The Federal rules restrict any use of the information to criminally investigate or prosecute any alcohol or drug abuse patient.[facility] CenterIn the event this information is protected by the Federal Confidentiality of Alcohol and Drug Abuse Patient Records regulations: The Federal rules restrict any use of the information to criminally investigate or prosecute any alcohol or drug abuse patient.[facility] CenterIn the event this information is protected by the Federal Confidentiality of Alcohol and Drug Abuse Patient Records regulations: The Federal rules restrict any use of the information to criminally investigate or prosecute any alcohol or drug abuse patient.[facility] CenterIn the event this information is protected by the Federal Confidentiality of Alcohol and Drug Abuse Patient Records regulations: The Federal rules restrict any use of the information to criminally investigate or prosecute any alcohol or drug abuse patient.[facility] CenterIn the event this information is protected by the Federal Confidentiality of Alcohol and Drug Abuse Patient Records regulations: The Federal rules restrict any use of the information to criminally investigate or prosecute any alcohol or drug abuse patient.[facility] CenterIn the event this information is protected by the Federal Confidentiality of Alcohol and Drug Abuse Patient Records regulations: The Federal rules restrict any use of the information to criminally investigate or prosecute any alcohol or drug abuse patient.[facility] CenterIn the event this information is protected by the Federal Confidentiality of Alcohol and Drug Abuse Patient Records regulations: The Federal rules restrict any use of the information to criminally investigate or prosecute any alcohol or drug abuse patient.[facility] CenterIn the event this information is protected by the Federal Confidentiality of Alcohol and Drug Abuse Patient Records regulations: The Federal rules restrict any use of the information to criminally investigate or prosecute any alcohol or drug abuse patient.[facility] CenterIn the event this information is protected by the Federal Confidentiality of Alcohol and Drug Abuse Patient Records regulations: The Federal rules restrict any use of the information to criminally investigate or prosecute any alcohol or drug abuse patient.[facility] CenterIn the event this information is protected by the Federal Confidentiality of Alcohol and Drug Abuse Patient Records regulations: The Federal rules restrict any use of the information to criminally investigate or prosecute any alcohol or drug abuse patient.[facility] CenterIn the event this information is protected by the Federal Confidentiality of Alcohol and Drug Abuse Patient Records regulations: The Federal rules restrict any use of the information to criminally investigate or prosecute any alcohol or drug abuse patient.[facility] CenterIn the event this information is protected by the Federal Confidentiality of Alcohol and Drug Abuse Patient Records regulations: The Federal rules restrict any use of the information to criminally investigate or prosecute any alcohol or drug abuse patient.[facility] CenterIn the event this information is protected by the Federal Confidentiality of Alcohol and Drug Abuse Patient Records regulations: The Federal rules restrict any use of the information to criminally investigate or prosecute any alcohol or drug abuse patient.[facility] CenterIn the event this information is protected by the Federal Confidentiality of Alcohol and Drug Abuse Patient Records regulations: The Federal rules restrict any use of the information to criminally investigate or prosecute any alcohol or drug abuse patient.[facility] CenterIn the event this information is protected by the Federal Confidentiality of Alcohol and Drug Abuse Patient Records regulations: The Federal rules restrict any use of the information to criminally investigate or prosecute any alcohol or drug abuse patient.[facility] CenterIn the event this information is protected by the Federal Confidentiality of Alcohol and Drug Abuse Patient Records regulations: The Federal rules restrict any use of the information to criminally investigate or prosecute any alcohol or drug abuse patient.[facility] CenterIn the event this information is protected by the Federal Confidentiality of Alcohol and Drug Abuse Patient Records regulations: The Federal rules restrict any use of the information to criminally investigate or prosecute any alcohol or drug abuse patient.[facility] CenterIn the event this information is protected by the Federal Confidentiality of Alcohol and Drug Abuse Patient Records regulations: The Federal rules restrict any use of the information to criminally investigate or prosecute any alcohol or drug abuse patient.[facility] CenterIn the event this information is protected by the Federal Confidentiality of Alcohol and Drug Abuse Patient Records regulations: The Federal rules restrict any use of the information to criminally investigate or prosecute any alcohol or drug abuse patient.[facility] CenterIn the event this information is protected by the Federal Confidentiality of Alcohol and Drug Abuse Patient Records regulations: The Federal rules restrict any use of the information to criminally investigate or prosecute any alcohol or drug abuse patient.[facility] Center[facility] the event this information is protected by the Federal Confidentiality of Alcohol and Drug Abuse Patient Records regulations: The Federal rules restrict any use of the information to criminally investigate or prosecute any alcohol or drug abuse patient.[facility] Center[facility] the event this information is protected by the Federal Confidentiality of Alcohol and Drug Abuse Patient Records regulations: The Federal rules restrict any use of the information to criminally investigate or prosecute any alcohol or drug abuse patient.[facility] Center[facility] the event this information is protected by the Federal Confidentiality of Alcohol and Drug Abuse Patient Records regulations: The Federal rules restrict any use of the information to criminally investigate or prosecute any alcohol or drug abuse patient.[facility] Center[facility] the event this information is protected by the Federal Confidentiality of Alcohol and Drug Abuse Patient Records regulations: The Federal rules restrict any use of the information to criminally investigate or prosecute any alcohol or drug abuse patient.[facility] CenterIn the event this information is protected by the Federal Confidentiality of Alcohol and Drug Abuse Patient Records regulations: The Federal rules restrict any use of the information to criminally investigate or prosecute any alcohol or drug abuse patient.[facility] Center[facility] the event this information is protected by the Federal Confidentiality of Alcohol and Drug Abuse Patient Records regulations: The Federal rules restrict any use of the information to criminally investigate or prosecute any alcohol or drug abuse patient.[facility] CenterIn the event this information is protected by the Federal Confidentiality of Alcohol and Drug Abuse Patient Records regulations: The Federal rules restrict any use of the information to criminally investigate or prosecute any alcohol or drug abuse patient.[facility] CenterIn the event this information is protected by the Federal Confidentiality of Alcohol and Drug Abuse Patient Records regulations: The Federal rules restrict any use of the information to criminally investigate or prosecute any alcohol or drug abuse patient.[facility] CenterIn the event this information is protected by the Federal Confidentiality of Alcohol and Drug Abuse Patient Records regulations: The Federal rules restrict any use of the information to criminally investigate or prosecute any alcohol or drug abuse patient.[facility] CenterIn the event this information is protected by the Federal Confidentiality of Alcohol and Drug Abuse Patient Records regulations: The Federal rules restrict any use of the information to criminally investigate or prosecute any alcohol or drug abuse patient.[facility] CenterIn the event this information is protected by the Federal Confidentiality of Alcohol and Drug Abuse Patient Records regulations: The Federal rules restrict any use of the information to criminally investigate or prosecute any alcohol or drug abuse patient.[facility] Reason for Visit (unrecogniz ed section and content) Reason Comments New Patient Specialty Diagnoses / Procedures Referred By Zaida t Referred To Contact Oncology Diagnoses Liver masses Procedures CONSULT TO [facility] OFFICE[facility] MINUTES Girish Lemos MD [address] [place] [address] Phone: tel: fax: Referral ID Status Reason Start Date Expiration Date V isits Requested Visits Authorized [id number] Closed PCP Requested Referral 10/17/2024 10/17/2025 1 [...] of call back from [facility] [place] around 09/03/24 as requested with readings. Patient [...] IVCON CT ABD & PELVIS W/CONTRAST 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 [id number] Imaging [facility]95 Referral ID Status Reason Start Date Expiration Date V isits Requested Visits Authorized [id number] Closed Auto-Generate d Referral 10/16/2024 11/15/2025 1 [...] TOMOGRAPHY THORAX W/CONTRAST Girish Lemos MD [address] [place] [address] Phone: tel: fax: CT IMAGING [facility]95 Referral ID Status Reason Start Date Expiration Date V isits Requested Visits Authorized [id number] Closed Auto-Generate d Referral 10/17/2024 11/16/2025 1 [...] Reason Onset Date Comments Refill Request 03/31/2025 Reason Onset Date Comments Refill Request 04/15/2025 Care Teams (unrecognized sec tion and content) Lime Slaker Relationship Specialty Start Date End Date Girish Lemos MD [address] [place] [address] PCP - General Family Practice 11/14/17 Lime Slaker Relationship Specialty Start Date End Date Girish Lemos MD [address] [place] [address] PCP - General Family Practice 11/14/17 Lime Slaker Relationship Specialty Start Date End Date Girish Lemos MD [address] [place] [address] PCP - General Family Medicine 11/14/17 Lime Slaker Relationship Specialty Start Date End Date Girish Lemos MD [address] [place] [address] PCP - General Family Medicine 11/14/17 Lime Slaker Relationship Specialty Start Date End Date Girish Lmeos MD [address] [place] [address] PCP - General Family Medicine 11/14/17 Lime Slaker Relationship Specialty Start Date End Date Girish Lemos MD [address] [place] [address] PCP - General Family Medicine 11/14/17 Lime Slaker Relationship Specialty Start Date End Date Girish Lemos MD [address] [facility] [place] [address] PCP - General Family Medicine 11/14/17 Lime Slaker Relationship Specialty Start Date End Date Girish Lemos MD [address] [facility] [place] [address] PCP - General Family Medicine 11/14/17 Lime Slaker Relationship Specialty Start Date End Date Girish Lemos MD [address] [facility] [place] [address] PCP - General Family Medicine 11/14/17 Lime Slaker Relationship Specialty Start Date End Date Girish Lemos MD [address] [facility] [place] [address] PCP - General Family Medicine 11/14/17 Lime Slaker Relationship Specialty Start Date End Date Girish Lemos MD [address] [facility] [place] [address] PCP - General Family Medicine 11/14/17 Team Status: Active Member Role Status Dates DEFINED NOT Family Provider Active Dr. Fabricio Lemos MD Primary Care Provider Acti ve Team Status: Inactive Member Role Status Dates Dr. Fabricio Lemos MD Primary Care Provider, Ref erring Provider Active Roxann Gomez 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, 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-C Attending Provider Active Team Status: Inactive Member Role Status Dates Dr. Fabricio Lemos MD Primary Care Provider Acti ve Roxann Gomez 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, 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-C Attending Provider, Referrin g Provider Active Lime Slaker Relationship Specialty Start Date End Date Girish Lemos MD [address] [facility] [place] [address] PCP - General Family Medicine 11/14/17 Lime Slaker Relationship Specialty Start Date End Date Girish Lemos MD [address] [facility] [place] [address] PCP - General Family Medicine 11/14/17 Lime Slaker Relationship Specialty Start Date End Date Girish Lemos MD [address] [place], [place] [address] PCP - General Family Medicine 11/14/17 Lime Slaker Relationship Specialty Start Date End Date Girish Lemos MD [address] [place], [place] [address] PCP - General Family Medicine 11/14/17 Lime Slaker Relationship Specialty Start Date End Date Girish Lemos MD [address] [place], [place] [id number] PCP - General Family Medicine 11/14/17 Team [...] MD Attending Provider, Referring Pr ovider Active Lime Slaker Relationship Specialty Start Date End Date Girish Lemos MD [address] [place], [place] [address] PCP - General Family Medicine 11/14/17 Lime Slaker Relationship Specialty Start Date End Date Girish Lemos MD [address] [place], [place] [address] PCP - General Family Medicine 11/14/17 Lime Slaker Relationship Specialty Start Date End Date Girish Lemos MD [address] [place] [address] PCP - General Family Medicine 11/14/17 Lime Slaker Relationship Specialty Start Date End Date Girish Lemos MD [address] [facility] [place] [address] PCP - General Family Medicine 11/14/17 Lime Slaker Relationship Specialty Start Date End Date Girish Lemos MD [address] [facility] [place] [address] PCP - General Family Medicine 11/14/17 Lime Slaker Relationship Specialty Start Date End Date Girish Lemos MD [address] [facility] [place] [address] PCP - General Family Medicine 11/14/17 Lime Slaker Relationship Specialty Start Date End Date Girish Lemos MD [address] [facility] [place] [address] PCP - General Family Medicine 11/14/17 Lime Slaker Relationship Specialty Start Date End Date Girihs Lemos MD [address] [facility] [place] [address] PCP - General Family Medicine 11/14/17 Lime Slaker Relationship Specialty Start Date End Date Girish Lemos MD [address] [facility] [place] [address] PCP - General Family Medicine 11/14/17 Lime Slaker Relationship Specialty Start Date End Date Girish Lemos MD [address] [facility] [place] [address] PCP - General Family Medicine 11/14/17 Lime Slaker Relationship Specialty Start Date End Date Girish Lemos MD [address] [facility] [place] [address] PCP - General Family Medicine 11/14/17 Lime Slaker Relationship Specialty Start Date End Date Girish Lemos MD [address] [facility] [place] [address] PCP - General Family Medicine 11/14/17 Lime Slaker Relationship Specialty Start Date End Date Girish Lemos MD [address] [facility] [place] [address] PCP - General Family Medicine 11/14/17 Podlogar, ALEXA Reid.FORMULATOR COMPOUNDER [address] [facility] [place] [address] Featheredge Machine Operator Family Medicine 08/23/24 Lime Slaker Relationship Specialty Start Date End Date Girish Lemos MD [address] [facility] [place] [address] PCP - General Family Medicine 11/14/17 Podlogar, ALEXA Reid.FORMULATOR COMPOUNDER [address] [facility] [place] [address] Featheredge Machine Operator Family Medicine 08/23/24 Lime Slaker Relationship Specialty Start Date End Date Girish Lemos MD [address] [facility] [place] [address] PCP - General Family Medicine 11/14/17 Podlogar, ALEXA Reid.FORMULATOR COMPOUNDER [address] [facility] [place] [address] Featheredge Machine Operator Family Medicine 08/23/24 Lime Slaker Relationship Specialty Start Date End Date Girish Lemos MD [address] [facility] [place] [address] PCP - General Family Medicine 11/14/17 PodlogarJeanette APRN.FORMULATOR COMPOUNDER [address] [place] [address] Featheredge Machine Operator Family Medicine 08/23/24 Lime Slaker Relationship Specialty Start Date End Date Girish Lemos MD [address] [facility] [place] [address] PCP - General Family Medicine 11/14/17 PodlogarJeanette APRN.FORMULATOR COMPOUNDER [address] [facility] [place] [address] Featheredge Machine Operator Family Medicine 08/23/24 Lime Slaker Relationship Specialty Start Date End Date Girish Lemos MD [address] [facility] [place] [address] PCP - General Family Medicine 11/14/17 PodlogarJeanette APRN.FORMULATOR COMPOUNDER [address] [facility] [place] [address] Featheredge Machine Operator Family Medicine 08/23/24 Lime Slaker Relationship Specialty Start Date End Date Girish Lemos MD [address] [facility] [place] [address] PCP - General Family Medicine 11/14/17 PodlogarJeanette APRN.FORMULATOR COMPOUNDER [address] [facility] [place] [address] Featheredge Machine Operator Family Medicine 08/23/24 Lime Slaker Relationship Specialty Start Date End Date Girish Lemos MD [address] [facility] [place] [address] PCP - General Family Medicine 11/14/17 PodlogarJeanette APRN.FORMULATOR COMPOUNDER [address] [place] [address] Featheredge Machine Operator Family Medicine 08/23/24 Lime Slaker Relationship Specialty Start Date End Date Girish Lemos MD [address] [facility] [place] [address] PCP - General Family Medicine 11/14/17 PodlogarJeanette APRN.FORMULATOR COMPOUNDER [address] [facility] [place] [address] Featheredge Machine Operator Family Medicine 08/23/24 Lime Slaker Relationship Specialty Start Date End Date Girish Lemos MD [address] [facility] [place] [address] PCP - General Family Medicine 11/14/17 PodlogarJeanette APRN.FORMULATOR COMPOUNDER [address] [facility] [place] [address] Featheredge Machine Operator Family Medicine 08/23/24 Lime Slaker Relationship Specialty Start Date End Date Girish Lemos MD [address] [facility] [place] [address] PCP - General Family Medicine 11/14/17 PodlogarJeanette APRN.FORMULATOR COMPOUNDER [address] [facility] [place] [address] Featheredge Machine Operator Family Medicine 08/23/24 Lime Slaker Relationship Specialty Start Date End Date Girish Lemos MD [address] [place] [address] PCP - General Family Medicine 11/14/17 PodlogarJeanette APRN.FORMULATOR COMPOUNDER [address] [place] [address] Featheredge Machine Operator Family [facility] 08/23/24 Lime Slaker Relationship Specialty Start Date End Date Girish Lemos MD [address] [facility] [place] [address] PCP - General Family Medicine 11/14/17 PodlogarJeanette APRN.FORMULATOR COMPOUNDER [address] [facility] [place] [address] Featheredge Machine Operator [facility] 08/23/24 Lime Slaker Relationship Specialty Start Date End Date Girish Lemos MD [address] [facility] [place] [address] PCP - General Family Medicine 11/14/17 PodlogarJeanette APRN.FORMULATOR COMPOUNDER [address] [facility] [place] [address] Featheredge Machine Operator Family Medicine 08/23/24 Roxann Gomez [address] [facility] [place] [address] Vascular Medicine 11/05/24 Lime Slaker Relationship Specialty Start Date End Date Girish Lemos MD [address] [facility] [place] [address] PCP - General Family Medicine 11/14/17 PodlogarJeanette APRN.FORMULATOR COMPOUNDER [address] [facility] [place] [address] Featheredge Machine Operator Family Medicine 08/23/24 Roxann Gomez [address] [place] [address] Vascular Medicine 11/05/24 Silas Robbins MD [address] [place] [address] Hematology/Oncology 11/10/24 Lime Slaker Relationship Specialty Start Date End Date Girish Lemos MD [address] [place] [address] PCP - General Family Medicine 11/14/17 Podlogar, ALEXA Reid.FORMULATOR COMPOUNDER [address] [place] [address] Featheredge Machine Operator Family Medicine 08/23/24 Roxann Gomez [address] [place] [address] Vascular Medicine 11/05/24 Silas Robbins MD [address] [place] [address] Hematology/Oncology 11/10/24 Lime Slaker Relationship Specialty Start Date End Date Girish Lemos MD [address] [place] [address] PCP - General Family Medicine 11/14/17 Podlogar, ALEXA Reid.FORMULATOR COMPOUNDER [address] [place] [address] Featheredge Machine Operator Family Medicine 08/23/24 Roxann Gomez [address] [place] [address] Vascular Medicine 11/05/24 Silas Robbins MD [address] [place], [place] [address] Hematology/Oncology 11/10/24 Team Status: Active Member Role Status Dates Dr. Fabricio Lemos MD Primary Care Provider Acti ve Team Status: Inactive Member Role Status Dates Dr. Fabricio Lemos MD Primary Care Provider Acti ve Start: November 03, 2024 End: November 03, 2024 Dr. Fabricio Lemos MD Referring Provider Active Start: November 03, 2024 End: November 03, 2024 Roxann Gomez 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, 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-C Attending Provider Active Start: November 03, 2024 End: November 03, 2024 Team Status: Inactive Member Role Status Dates Dr. Fabricio Lemos MD Primary Care Provider Acti ve Start: November 11, 2024 End: November 11, 2024 Roxann Gomez 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, 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-C Attending Provider Active Start: November 11, 2024 End: November 11, 2024 Roxann Gomez 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, 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-C Referring Provider Active Start: November 11, 2024 [...] t: November 14, 2024 Dr. Mae Horton , Admit Provider Active Start : November 14, [...] Active Start : November 15, 2024 Dr. Mea Horton DO Attending Provider Active S tart: [...] End: November 24, 2024 Roxann Gomez NP, 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-C Referring Provider Active Start: November 24, 2024 [...] 2024 End: December 02, 2024 Sharda Bronson 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, 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-C Attending Provider Active Start: December 02, 2024 [...] End: December 09, 2024 Sharda Bronson NP, 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-C Attending Provider Active Start: December 09, 2024 [...] Provider Active S tart: December 12, 2024 Lime Slaker Relationship Specialty Start Date End Date Girish Lemos MD [address] [place], [place] [id number] PCP - General Family Medicine 11/14/17 PodlogarJeanette APRN.FORMULATOR COMPOUNDER [address] [place], [place] [id number] Featheredge Machine Operator Family Medicine 08/23/24 Roxann Gomez [address] [facility] [place] [address] Vascular Medicine 11/05/24 Silas Robbins MD [address] [place], [place] [address] Hematology/Oncology 11/10/24 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 [address] [facility] [place] [address] Featheredge Machine Operator Family [facility] 12/08/24 Lime Slaker Relationship Specialty Start Date End Date Girish Lemos MD [address] [place] [address] PCP - General Family Medicine 11/14/17 PodlogarJeanette APRN.FORMULATOR COMPOUNDER [address] [place] [address] Featheredge Machine Operator Family Medicine 08/23/24 Roxann Gomez [address] [place] [address] Vascular Medicine 11/05/24 Silas Robbins MD [address] [place] [address] Hematology/Oncology 11/10/24 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 [address] [place] [address] [facility] 12/08/24 Lime Slaker Relationship Specialty Start Date End Date Girish Lemos MD [address] [place] [address] PCP - General Family Medicine 11/14/17 PodlogarJeanette APRN.FORMULATOR COMPOUNDER [address] [place] [address] Featheredge Machine Operator Family Medicine 08/23/24 Roxann Gomez [address] [place] [place] [address] Vascular Medicine 11/05/24 Silas Robbins MD [address] [place], [place] [id number] Hematology/Oncology 11/10/24 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 [address] [place] [id number] Featheredge Machine Operator Family Medicine 11/28/24 12/07/24 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 [address] [place] [address] [facility] 12/08/24 Team Status: Inactive Member Role Status Dates Dr. Fabricio Lemos MD Primary Care Provider Acti ve Start: December 16, 2024 End: December 16, 2024 Dr. Fabricio Lemos MD Referring Provider Active Start: December 16, 2024 End: December 16, 2024 Sharda Bronson NP, 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-C Attending Provider Active Start: December 16, 2024 [...] End: December 29, 2024 Sharda Bronson NP 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-C Attending Provider Active Start: December 29, 2024 [...] Provider Active Sta rt: January 10, 2025 Lime Slaker Relationship Specialty Start Date End Date Girish Lemos MD [address] [place] [address] PCP - General Family Medicine 11/14/17 PodlogarJeanette APRN.FORMULATOR COMPOUNDER [address] [place] [address] Featheredge Machine Operator Family Medicine 08/23/24 Roxann Gomez [address] [place] [address] Vascular Medicine 11/05/24 Silas Robbins MD [address] [place] [address] Hematology/Oncology 11/10/24 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 [address] [facility] [place] [address] Featheredge Machine Operator [facility] 12/08/24 Lime Slaker Relationship Specialty Start Date End Date Girish Lemos MD [address] [place] [address] PCP - General Family Medicine 11/14/17 PodlogarJeanette APRN.FORMULATOR COMPOUNDER [address] [place] [address] Featheredge Machine Operator Family Medicine 08/23/24 Roxann Gomez [address] [place] [address] Vascular Medicine 11/05/24 Silas Robbins MD [address] [place] [address] Hematology/Oncology 11/10/24 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 [address] [place] [address] Featheredge Machine Operator Family [facility] 12/08/24 Lime Slaker Relationship Specialty Start Date End Date Girish Lemos MD [address] [place] [address] PCP - General Family Medicine 11/14/17 PodlogarJeanette APRN.FORMULATOR COMPOUNDER [address] [place] [address] Featheredge Machine Operator Family Medicine 08/23/24 Roxann Gomez [address] [place] [address] Vascular Medicine 11/05/24 Silas Robbins MD [address] [place] [address] Hematology/Oncology 11/10/24 Oleg Fields, 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 [address] [place] [address] [facility] 12/08/24 Lime Slaker Relationship Specialty Start Date End Date Girish Lemos MD [address] [place] [address] PCP - General Family Medicine 11/14/17 Podlogar, ALEXA Reid.FORMULATOR COMPOUNDER [address] [place] [address] Featheredge Machine Operator Family Medicine 08/23/24 Roxann Gomez [address] [place] [address] Vascular Medicine 11/05/24 Silas Robbins MD [address] [place] [address] Hematology/Oncology 11/10/24 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 [address] [facility] [place] [address] Featheredge Machine Operator [facility] 12/08/24 Lime Slaker Relationship Specialty Start Date End Date Girish Lemos MD [address] [facility] [place] [address] PCP - General Family Medicine 11/14/17 PodlogarJeanette APRN.FORMULATOR COMPOUNDER [address] [facility] [place] [address] Featheredge Machine Operator Family Medicine 08/23/24 Roxann Gomez [address] [place] [address] Vascular Medicine 11/05/24 Silas Robbins MD [address] [place] [address] Hematology/Oncology 11/10/24 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 [address] [facility] [place] [address] [facility] 12/08/24 Team Status: Active Member Role [...] Referring Provider Active Start: February 03, 2025 Lime Slaker Relationship Specialty Start Date End Date Girish Lemos MD [address] [place], [place] [address] PCP - General Family Medicine 11/14/17 Jeanette Berrios APRN.CNP [address] [place], [place] [address] Featheredge Machine Operator Family Medicine 08/23/24 Roxann Gomez [address] [place] [address] Vascular Medicine 11/05/24 Silas Robbins MD [address] [place] [address] Hematology/Oncology 11/10/24 Team Status: Active Member Role [...] Active Member Role Status Dates Dr. Fabricio Lemso MD Primary Care Provider Acti ve Start: [...] End: November 24, 2024 Roxann Gomez NP, 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-C Referring Provider Active Start: November 24, 2024 [...] 2024 End: December 02, 2024 Sharda Bronson 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, 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-C Attending Provider Active Start: December 02, 2024 [...] 2024 End: December 09, 2024 Sharda Bronson 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, 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-C Attending Provider Active Start: December 09, 2024 [...] 2024 End: December 16, 2024 Sharda Bronson 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, 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-C Attending Provider Active Start: December 16, 2024 End: December 16, 2024 Team Status: Inactive Member Role/Relationship Status Dates Dr. Fabricio Lemos MD Primary Care Provider Acti ve Start: December 22, 2024 End: December 22, 2024 Dr. Fabricio Lemos MD Referring Provider Active Start: December 22, 2024 End: December 22, 2024 Rachael Mattson PA PA-C Attending Provider Active Start: December 22, 2024 End: December 22, 2024 Team Status: Inactive Member Role/Relationship Status Dates Dr. Fabricio Lemos MD Primary Care Provider Acti ve Start: December 29, 2024 End: December 29, 2024 Dr. Fabricio Lemos MD Referring Provider Active Start: December 29, 2024 End: December 29, 2024 Sharda Bronson 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, 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-C Attending Provider Active Start: December 29, 2024 [...] Referring Provider Active Start: March 16, 2025 Lime Slaker Relationship Specialty Start Date End Date Girish Lemos MD [address] [facility], [place] [id number] PCP - General Family Medicine 11/14/17 PodlogJeanette gibbons APRN.FORMULATOR COMPOUNDER [address] [facility], [place] [id number] [employer] Machine Operator Family Medicine 08/23/24 Roxann Gomez [address] [place] [id number] Vascular Medicine 11/05/24 Silas Robbins MD [address] [facility], [place] [id number] Hematology/Oncology 11/10/24 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 [address] [facility], [place] [id number] [facility] 02/26/25 Team Status: Inactive Member Role/Relationship Status Dates Dr. Fabricio Lemos MD Primary Care Provider Acti ve Start: December 09, 2024 End: December 09, 2024 Dr. Fabricio Lemos MD Referring Provider Active Start: December 09, 2024 End: December 09, 2024 Sharda Bronson 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, 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-C Attending Provider Active Start: December 09, 2024 [...] 2024 End: December 16, 2024 Sharda Bronson 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, 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-C Attending Provider Active Start: December 16, 2024 End: December 16, 2024 Team Status: Inactive Member Role/Relationship Status Dates Dr. Fabricio Lemos MD Primary Care Provider Acti ve Start: December 22, 2024 End: December 22, 2024 Dr. Fabricio Lemos MD Referring Provider Active Start: December 22, 2024 End: December 22, 2024 Rachael Mattson PA PA-C Attending Provider Active Start: December 22, 2024 End: December 22, 2024 Team Status: Inactive Member Role/Relationship Status Dates Dr. Fabricio Lemos MD Primary Care Provider Acti ve Start: December 29, 2024 End: December 29, 2024 Dr. Fabricio Lemos MD Referring Provider Active Start: December 29, 2024 End: December 29, 2024 Sharda Bronson 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, 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-C Attending Provider Active Start: December 29, 2024 [...] 2025 End: April 06, 2025 Sharda Bronson 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, 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-C Attending Provider Active Start: April 06, 2025 End: April 06, 2025 Team Status: Inactive Member [...] 2024 End: December 16, 2024 Sharda Bronson 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, 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-C Attending Provider Active Start: December 16, 2024 End: December 16, 2024 Team Status: Inactive Member Role/Relationship Status Dates Dr. Fabricio Lemos MD Primary Care Provider Acti ve Start: December 22, 2024 End: December 22, 2024 Dr. Fabricio Lemos MD Referring Provider Active Start: December 22, 2024 End: December 22, 2024 EDE KimC Attending Provider Active Start: December 22, 2024 End: December 22, 2024 Team Status: Inactive Member Role/Relationship Status Dates Dr. Fabricio Lemos MD Primary Care Provider Acti ve Start: December 29, 2024 End: December 29, 2024 Dr. Fabricio Lemos MD Referring Provider Active Start: December 29, 2024 End: December 29, 2024 Sharda Bronson NP, 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-C Attending Provider Active Start: December 29, 2024 [...] 2025 End: March 16, 2025 Team Status: Inactive Member Role/Relationship Status Dates Dr. Fabricio Lemos MD Primary Care Provider Acti ve Start: April 05, 2025 End: April 05, 2025 Dr. Juan Lynch DO Attending Provider Active S tart: April 05, 2025 [...] 2025 End: April 06, 2025 Sharda Bronson 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, 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-C Attending Provider Active Start: April 06, 2025 End: April 06, 2025 Team Status: Inactive Member Role/Relationship Status Dates Dr. Fabricio Lemos MD Primary Care Provider Acti ve Start: April 06, 2025 End: April 06, 2025 Shardajany Bronson 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, 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-C Attending Provider Active Start: April 06, 2025 End: April 06, 2025 Shardajany Bronson 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, 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-C Referring Provider Active Start: April 06, 2025 End: April 06, 2025 Team Status: Inactive Member Role/Relationship Status Dates Dr. Fabricio Lemos MD Primary Care Provider Acti ve Start: December 16, 2024 End: December 16, 2024 Dr. Fabricio Lemos MD Referring Provider Active Start: December 16, 2024 End: December 16, 2024 Sharda Bronson 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, 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-C Attending Provider Active Start: December 16, 2024 [...] 2024 End: December 29, 2024 Sharda Bronson 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, 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-C Attending Provider Active Start: December 29, 2024 [...] 2025 End: March 16, 2025 Team Status: Inactive Member Role/Relationship Status Dates Dr. Fabricio Lemos MD Primary Care Provider Acti ve Start: April 05, 2025 End: April 05, 2025 Dr. Juan Lynch DO Attending Provider Active S tart: April 05, 2025 [...] April 06, 2025 End: April 06, 2025 Shardajany Bronson 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, 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-C Attending Provider Active Start: April 06, 2025 End: April 06, 2025 Team Status: Inactive Member Role/Relationship Status Dates Dr. Fabricio Lemos MD Primary Care Provider Acti ve Start: April 06, 2025 End: April 06, 2025 Shardajany Bronson 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, 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-C Attending Provider Active Start: April 06, 2025 End: April 06, 2025 Shardajany Bronson 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, 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-C Referring Provider Active Start: April 06, 2025 End: April 06, 2025 Team Status: Inactive Member Role/Relationship Status Dates Dr. Fabricio Lemos MD Primary Care Provider Acti ve Start: April 13, 2025 End: April 13, 2025 Dr. Farbicio Lemos MD Referring Provider Active Start: April 13, 2025 End: April 13, 2025 Dr. Reg Layne DO Attending Provider Active Start: April 13, 2025 End: April 13, 2025 Lime Slaker Relationship Specialty Start Date End Date Girish Lemos MD [address] [place], [place] [id number] PCP - General Family Medicine 11/14/17 PodlogJeanette gibbons APRN.FORMULATOR COMPOUNDER [address] [place], [place] [address] [facility] 08/23/24 Roxann Gomez [address] [place] [id number] Vascular Medicine 11/05/24 Silas Robbins MD [address] [place], [place] [id number] Hematology/Oncology 11/10/24 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 [address] [place] [id number] [facility] 02/26/25 FOR RECORDS PERTAINING TO PATIENTS [...] BE BASED ON THE PRIMARY CLINICAL RECORDS. [facility]. provides no warranty or guarantee of the accuracy or completeness of information in this document.
[2025-04-20 05:00] VITALS: BP 122/74; PULSE 90; RESP 18; O2SAT 91
[2025-04-20 06:00] VITALS: BP 112/71; PULSE 85; RESP 16; TEMP 36.6; O2SAT 93
== END 2025-04-20 06:01 | disposition home or self-care (01) ==
PROVIDERS: Emergency Provider Emergency Medicine; PCP Family Medicine; Visit Provider Emergency Medicine
DX: C79.51 Secondary malignant neoplasm of bone (principal); C78.7 Secondary malignant neoplasm of liver and intrahepatic bile duct; C79.31 Secondary malignant neoplasm of brain; C7A.8 Other malignant neuroendocrine tumors; I10 Essential (primary) hypertension; Z79.899 Other long term (current) drug therapy; Z87.891 Personal history of nicotine dependence
CPT/HCPCS: 36591; 74177; 80053; 83690; 85025; 96361; 96374; 96375; 96376; 99282; Q9967; A4216; J2405

== ENCOUNTER 2025-04-30 06:27 | Emergency (ER) | payer MEDICARE, SELFPAY ==
[2025-04-30] VITALS (7 sets, daily range): BP systolic 134–146; BP diastolic 73–92; PULSE 74–95; RESP 14–17; TEMP 36.7; O2SAT 92–95; BMI 25.4
--- NOTE | 2025-04-30 06:56 | RAD_ITS ---
PROCEDURE: LUMBAR SPINE 2 OR 3 VIEWS 04/30/2025 REASON FOR EXAM: INJURY/PAIN TECHNIQUE: LUMBAR SPINE 2 OR 3 VIEWS COMPARISON: April 05, 2025 CT FINDINGS: Vertebral body height and alignment are maintained. The facets are aligned. Disc height is maintained. Surgical clips are noted. Vascular calcifications are present. Mineralization is normal. RAD/Lumbar Spine 2 or 3 Views IMPRESSION: No fracture or spondylolisthesis is identified in the lumbar region. Reading Location: [facility]
--- NOTE | 2025-04-30 06:56 | RAD_ITS ---
PROCEDURE: HIP, UNI W/ PELVIS 2-3 VIEWS 04/30/2025 REASON FOR EXAM: INJURY/PAIN TECHNIQUE: Pelvis with two views of the left hip COMPARISON: None FINDINGS: There is no fracture or dislocation identified. The SI joints are aligned. The sacral foramina appear intact. Mineralization is normal. There is visible atherosclerosis. RAD/HIP, UNI W/ Pelvis 2-3 Views IMPRESSION: No fracture or dislocation is identified. Reading Location: [facility]
--- NOTE | 2025-04-30 06:59 | EX.ED.GENINJ ---
[facility] <Dr. Neal Bass MD - Last Filed: 05/01/25 07:13> History of Present Illness Chief Complaint: Fall Detail of Chief Complaint: Mechanical fall complaining of low back pain and left hip/pelvic pain Informant: patient, spouse/S.O. and family Onset/Context/Timing Onset: Today (Occurred at 0500 walking to the restroom) Mechanism/Context: Blunt Injury and Fall Location of pain/injuries: Right forearm (Abrasion does not complain of pain), Right hand (Abrasion does not complain of pain) and Left hip (Complains of pain left hip area.) Quality of Pain: Dull and Aching Location: Low back and left hip region Current Severity: Mild Maximum Severity: Severe Worsened by: Palpation to low back and movement movement of left lower extremity Relieved by: Nothing Associated Symptoms Associated Symptoms: Positive for Loss of function and Inability to ambulate; Negative for Parasthesias, Weakness, Loss of consciousness or Amnesia Length of loss of consciousness: None Narrative Narrative: Patient is a 69-year-old woman. She has history of metastatic small cell lung cancer. She was walking towards the restroom. She did not make it to the restroom. She had loss of bowel control. She slipped on her stool. This occurred at 5:00 in the morning. at that time gave her long-acting morphine, 30 mg. She arrived by ambulance. She was not able to get up. Movement of her left lower extremity causes her pain in the left hip region. She denies head trauma. She denies loss of conscious. She not amnestic. She states she has abrasion to her right hand and forearm. She apparently braced her fall against the wall. Patient is not on anticoagulant. Patient has metastasis to bone. Patient denies headache, visual, ocular auditory symptoms. Patient denies pain in her upper extremities. She has no complaint of pain in her right lower extremity. She does complain of pain in the low back. She did not have a syncopal sewed. verifies she had no loss of consciousness. She is not amnestic. She was not dazed. Prior similar symptoms: No Recent Illness/Hospitalization: Yes [facility] <Dr. Neal Bass MD - Last Filed: 05/01/25 07:13> [facility] Medical History Hypercalcemia of malignancy Left leg weakness Anemia Cancer Difficulty swallowing Hypothyroidism GERD (gastroesophageal reflux disease) Chest pain Encounter for chemotherapy management Internal hemorrhoids Current use of steroid medication Ambulates with cane Back pain On home oxygen therapy High grade neuroendocrine carcinoma of lung Jaundice Regional lymph node metastasis present Metastasis to bone Small cell lung cancer Loss of hearing Wears glasses Wears dentures Post-menopausal Thyroid disease Arthritis High cholesterol DVT (deep venous thrombosis) Injury of back Migraine headache Syncope History of hiatal hernia History of ulceration History of diverticulitis Former smoker Asthma CPAP (continuous positive airway pressure) dependence Leg cramps Shortness of breath on exertion History of pain when walking Hypertension Heart murmur History of echocardiogram History of stress test Cardiology follow-up encounter Bradycardia Chronic respiratory failure with hypoxia Smoking greater than 40 pack years Pulmonary hypertension Bronchiectasis History of staph infection Hypoxia Home Medications ?Medication ?Instructions ?Recorded ?Last Taken ?Type levothyroxine 25 mcg tablet 25 mcg PO DAILY thyroid 11/03/17 02/16/25 05:30 History Disability Placard #1 ea 09/15/20 Unknown Rx potassium citrate 10 mEq (1,080 20 meq PO DAILY potassium 01/26/22 12/11/24 History mg) tablet,extended release albuterol sulfate 90 mcg/actuation 2 puff inhalation Q4H PRN 06/13/23 Unknown History aerosol inhaler shortness of breath or wheezing fluticasone propionate 50 1 spray intranasal DAILY PRN nasal 05/28/24 Unknown History mcg/actuation nasal congestion spray,suspension (Flonase Allergy Relief) losartan 25 mg tablet 25 mg PO DAILY blood pressure 11/12/24 02/16/25 05:30 History ondansetron HCl 8 mg tablet 8 mg PO Q8H PRN nausea and vomiting 11/24/24 01/09/25 History docusate sodium 100 mg capsule 100 mg PO BID PRN constipation 12/11/24 Unknown History omeprazole 40 mg capsule,delayed 40 mg PO BID gerd 12/11/24 02/16/25 05:30 History release lidocaine-prilocaine 2.5 %-2.5 % 1 applic topical ONCE PRN port 12/15/24 Unknown Rx topical cream access 30 days #30 grams prochlorperazine maleate 10 mg 10 mg PO Q6H PRN nausea and 12/15/24 01/07/25 Rx tablet vomiting #30 tabs mirtazapine 15 mg tablet 15 mg PO QHS sleep #30 tabs 12/29/24 01/08/25 Rx furosemide 20 mg tablet 20 mg PO DAILY PRN leg 01/10/25 Unknown Rx swelling/SOB #30 tabs gabapentin 400 mg capsule 600 mg PO TID nerve pain 04/13/25 Unknown History morphine 15 mg immediate release 15 mg PO Q6H PRN pain 04/13/25 Unknown History tablet morphine 30 mg tablet,extended 30 mg PO Q12H 04/20/25 Unknown History release Allergy/AdvReac Type Severity Reaction Status Date / Time DAVID Inhibitors Allergy Rash Verified 04/30/25 06:34 codeine Allergy Vomiting Verified 04/30/25 06:34 walnut Allergy Food Verified 04/30/25 06:34 Allergy prednisone AdvReac Other Verified 04/30/25 06:34 Qseapsp-ZCN-GlF Reductase AdvReac cramps Verified 04/30/25 06:34 Inhibitor (Kvnzshj-Yki-Uhg Reductase Inhibitor) Family History Mother Cancer Hx Lung CA. Father Cancer Hx Lung CA. Surgical History History of vascular access device Hx of right cataract extraction Hx of left cataract extraction Hx of breast reconstruction Hx of foot surgery Hx of surgical amputation of finger Hx of elbow surgery History of carpal tunnel surgery Hx of vein stripping History of cholecystectomy History of back surgery History of eye surgery History of breast biopsy History of tubal ligation History of History of appendectomy History of tonsillectomy Social History household members: spouse Smoking Status: Former smoker quit date: 08/17/16 Tobacco: How many years used: 45 alcohol intake: never ROS <Dr. Neal Bass MD - Last Filed: 05/01/25 07:13> ROS ED Constitutional Constitutional ED: Denies chills, fever(s) or subjective Eyes Eyes: Denies blurry vision or change in vision ENT ENT ED: Denies ear pain, rhinorrhea or sore throat Cardiovascular Cardiovascular: Denies chest pain or palpitations Respiratory/Chest Respiratory/Chest: Denies cough, dyspnea or dyspnea on exertion Gastrointestinal Gastrointestinal: Denies abdominal pain, melena, nausea or vomiting Genitourinary Genitourinary ED: Denies dysuria, hematuria or urinary frequency Musculoskeletal Musculoskeletal: Denies arthralgias, back pain or myalgias Integumentary Reports Abrasions Neurologic Neurologic: Reports weakness; Denies headache(s) or paresthesias Endocrine Endocrinology: Denies cold intolerance or heat intolerance Hematologic/Lymphatic Hematologic/Lymphatic: Denies easy bleeding or easy bruising EXAM <Dr. Neal Bass MD - Last Filed: 05/01/25 07:13> Physical Exam Const Vital Signs: 04/30/25 08:59 04/30/25 10:18 04/30/25 12:00 Temperature Pulse Rate Respiratory Rate 16 Blood Pressure 135/92 H 146/78 H Blood Pressure Mean 106 100 Pulse Ox Oxygen Delivery Method Oxygen Flow Rate (L/min) 04/30/25 16:00 04/30/25 18:00 04/30/25 22:17 Temperature 98.1 F Pulse Rate 87 95 74 Respiratory Rate 14 17 15 Blood Pressure 142/82 H 138/78 H 142/87 H Blood Pressure Mean 102 98 105 Pulse Ox 92 94 95 Oxygen Delivery Method Room Air Nasal Cannula Oxygen Flow Rate (L/min) 2 Positive well nourished and well developed Constitutional Narrative: Patient has 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 Patient is thin. She appears pale. General Appearance ED: well developed HEENT Reports TM's clear atraumatic; Negative for tenderness Nose: Negative for septum abnormal Tympanic Membrane ED: Yes TM's clear Eyes PERRL and EOMs intact bilaterally General Eye ED: Yes other Other Details: There is no subconjunctival hemorrhage. Neck full ROM General: Negative for tenderness or other Chest Wall inspection of chest normal and palpation of chest normal Resp normal respiratory effort and clear to auscultation bilaterally Cardio regular rhythm, S1 normal heart sound, S2 normal heart sound and no murmurs Rate: regular rate GI normal to inspection, nondistended, normoactive bowel sounds, non-tender, non-distended and no masses Back/Spine normal to inspection; Negative for no thoracic nor lumbar tenderness Back/Spine Narrative: There is pain palpation over the spinous process of L4, L5 and sacral region. General Back: Negative for CVA tenderness Thoracic Spine / Upper Back: Negative for thoracic spinal tenderness Extremity Negative for normal to inspection or full ROM Extremity Narrative: Patient has noted to have stool on her legs. She is in a flexed position. She does not move her left lower extremity. She has pain palpation over the left ischial tuberosity only. There is pain ovation over the left greater trochanteric region. Attempting to extend the leg causes her significant pain in the groin/hip region. Patient is presently on her right side. There is no pain ovation over the right or left ilium. There is no pain ovation over the knees, ankles or feet. Neuro oriented x3, CN's II-XII intact bilaterally and moves all extremities [place] Coma Scale: document GCS findings Spontaneous Obeys Commands Oriented 15 Sensorium / Orientation: alert Psych Negative for mental status grossly normal or thought process normal Skin No no wounds Skin Narrative: Patient appears pale. Trauma: abrasion <Dr. George Fajardo DO - Last Filed: 04/30/25 21:14> Physical Exam Const Vital Signs: 04/30/25 08:59 04/30/25 10:18 04/30/25 12:00 Temperature Pulse Rate Respiratory Rate 16 Blood Pressure 135/92 H 146/78 H Blood Pressure Mean 106 100 Pulse Ox Oxygen Delivery Method Oxygen Flow Rate (L/min) 04/30/25 16:00 04/30/25 18:00 04/30/25 22:17 Temperature 98.1 F Pulse Rate 87 95 74 Respiratory Rate 14 17 15 Blood Pressure 142/82 H 138/78 H 142/87 H Blood Pressure Mean 102 98 105 Pulse Ox 92 94 95 Oxygen Delivery Method Room Air Nasal Cannula Oxygen Flow Rate (L/min) 2 Neuro [place] Coma Scale: document GCS findings 15 MDM <Dr. Neal Bass MD - Last Filed: 05/01/25 07:13> [facility] MDM Narrative Medical decision making narrative: X-ray of the hip was obtained to evaluate for hip fracture versus pelvic fracture involving the inferior superior pubic rami. Also x-ray of the LS spine was obtained since she has tenderness and has history of metastasis to bone. 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 Patient's care was turned over to the afternoon physician Dr. George Fajardo. History & Record Review Additional record(s) reviewed:: Prior outpatient record (Reviewed Dr. Ferro' office note. Patient has a neuroendocrine carcinoma of the lung.) Radiography Chest X-Ray - ED: 2 View (2 views of the LS-spine was obtained. Patient has calcification of the aorta. There is no evidence of aneurysm. There is degenerative changes noted of the lumbar vertebrae. There is concern for abnormality of T11. Compared to CT that was obtained on April 20 there is no obvious significant blank) and Read by ED Physician (Three-view x-ray of the left hip reveals no evidence of fracture of the femur or pelvis.) Diagnostic Testing: Clinical Impression(s) from Imaging Studies Hip/Pelvis X-Ray 04/30/25 06:56 IMPRESSION: No fracture or dislocation is identified. Reading Location: [facility] Lumbar Spine X-Ray 04/30/25 06:56 IMPRESSION: No fracture or spondylolisthesis is identified in the lumbar region. Reading Location: [facility] Treatment and Re-Evaluation Narrative: Patient was informed of her x-ray results. She was informed of her lumbar CAT scan performed on April 20 and she did not know the results. Patient states the pain is slightly worse than her baseline. An additional dose of Dilaudid was ordered at 0830. Patient did not have much improvement after second dose of Dilaudid. She is scheduled to meet with hospice [facility]. In light of this and the fact that she still having pain grimaces with minimal movement of her extremities will contact hospice to see her in the emergency department. <Dr. George Fajardo, DO - Last Filed: 04/30/25 21:14> MDM Radiography Diagnostic Testing: Clinical Impression(s) from Imaging Studies Hip/Pelvis X-Ray 04/30/25 06:56 IMPRESSION: No fracture or dislocation is identified. Reading Location: [facility] Lumbar Spine X-Ray 04/30/25 06:56 IMPRESSION: No fracture or spondylolisthesis is identified in the lumbar region. Reading Location: [facility] Treatment and Re-Evaluation Narrative: Patient was informed of her x-ray results. She was informed of her lumbar CAT scan performed on April 20 and she did not know the results. Patient states the pain is slightly worse than her baseline. An additional dose of Dilaudid was ordered at 0830. Patient did not have much improvement after second dose of Dilaudid. She is scheduled to meet with hospice tonight. In light of this and the fact that she still having pain grimaces with minimal movement of her extremities will contact hospice to see her in the emergency department. 2100: Le. Patient was signed out to me pending hospice evaluation. In the interim pain was not controlled with 0.5 mg Dilaudid to switch over 1 mg IV Dilaudid every 3 hours. She was evaluated by hospice, patient is excepted to hospice facility. Awaiting transfer. Discharge Plan Triage Chief Complaint: Fall ED Provider: Neal Bass Dx/Rx/DC Orders Clinical Impression: Metastatic cancer, Hospice care Prescriptions: No Action (DME) Disability Placard See Rx Instructions .Route .MEDSUPPLY Qty: 1 0RF Rx Instructions: Expires 09/09/2025 albuterol sulfate 90 mcg/actuation HFA aerosol inhaler 2 puff inhalation Q4H PRN (Reason: shortness of breath or wheezing) ondansetron HCl 8 mg tablet 8 mg PO Q8H PRN (Reason: nausea and vomiting) mirtazapine 15 mg tablet 15 mg PO QHS Qty: 30 3RF morphine 15 mg tablet 15 mg PO Q6H PRN (Reason: pain) levothyroxine 25 MCG tablet 25 mcg PO DAILY potassium citrate 10 mEq (1,080 mg) tablet extended release 20 meq PO DAILY Patient Comments: pt unsure if she takes this medication gabapentin 400 mg capsule 600 mg PO TID fluticasone propionate [Flonase Allergy Relief] 50 mcg/actuation spray,suspension 1 spray intranasal DAILY PRN (Reason: nasal congestion) Rx Instructions: administer into each nostril losartan 25 mg tablet 25 mg PO DAILY morphine 30 mg tablet extended release 30 mg PO Q12H omeprazole 40 MG capsule,delayed release(DR/EC) 40 mg PO BID docusate sodium 100 mg Capsule 100 mg PO BID PRN (Reason: constipation) Rx Instructions: Hold for diarrhea furosemide 20 mg tablet 20 mg PO DAILY PRN (Reason: leg swelling/SOB) Qty: 30 0RF lidocaine-prilocaine 2.5-2.5 % cream 1 applic topical ONCE PRN (Reason: port access) 30 Days Qty: 30 2RF prochlorperazine maleate 10 mg tablet 10 mg PO Q6H PRN (Reason: nausea and vomiting) Qty: 30 2RF Primary Care Provider: Fabricio Lemos Referrals: Fabricio eLmos MD [Primary Care Provider] - Print Language: Grenadian Disposition Disposition: Hospice in Medical Facility Discharge Location: [facility] Discharge Date/Time: 04/30/25 22:30
[2025-04-30] MEDS: HYDROmorphone 0.5 MG/0.5 ML SYRINGE IM (07:13)
--- OUTSIDE RECORDS SUMMARY | 2025-04-30 07:40 | XMS RPT_ITS | CCD ---
Author Organization [facility] Care Team Providers Care Arbitrator Name Role Phone TONI GREER Attending Unav ailable TONI GREER Attending Unav ailable TONI GREER Attending Unav ailable PERCY, TONI PIMENTEL Attending Unav ailable PERCY, TONI PIMENTEL Attending Unav ailDr. Fabricio Henry Primary Care Provider Dr. Fabricio Lemos Referring Provider [phone] Patricia DICKEY INSULATION BLOWER-Ansley Hackett Attending Provider [phone] Girish Lemos MD Primary Care Provider Girish Lemos MD Primary Care Provider Girish Lemos MD Primary Care Provider Dr. Fabricio Lemos Primary Care Provider Dr. Fabricio Lemos Referring Provider Patricia DICKEY NP-Ansley Hackett Attending Provider Dr. Fabricio Lemos Primary Care Provider [phone] Dr. Fabricio Lemos Referring Provider Patricia INSULATION BLOWER, INSULATION BLOWER-C Roxann Attending Provider Dr. Fabricio Lemos Primary Care Provider [phone] Dr. Fabricio Lemos Referring Provider Dr. Tobias Gonsalves Attending Provider Dr. Tobias Gonsalves Referring Provider Dr. Tobias Gonsalves Other Provider Dr. Sarmad Noe Attending Provider Girish Lemos MD Primary Care Provider XUAN GARCIA MD Attending Unavailabl e RADHA, XUAN ERNANDEZ Primary Care Unavailabl e GIRISH LEMOS Consulting Unavailab le RADHA, XUAN ERNANDEZ Admitting Unavailabl e PROVIDER, UNKNOWN Consulting Unavailable RADHA, XUAN ERNANDEZ Attending Unavailabl e RADHA, XUAN ERNANDEZ Primary Care Unavailabl e GIRISH LEMOS Consulting Unavailab le RADHA, XUAN ERNANDEZ Admitting Unavailabl e PROVIDER, UNKNOWN Consulting Unavailable JERRIANDAEduardo, XUAN ERNANDEZ Primary Care Unavailabl e DUMANDAN, XUAN ERNANDEZ Admitting Unavailabl e OLIVEIRA, AURE A Consulting Unavailable DUMANDAEduardo, XUAN ERNANDEZ Attending Unavailabl e PROVIDER, UNKNOWN Consulting Unavailable PROVIDER, UNKNOWN Consulting Unavailable PROVIDER, UNKNOWN Consulting Unavailable Podlogar 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, Jeanette Unavailable Roxann Gomez Unavailable Francisco ERNANDEZ, Silas Unavailable Dr. Fabricio Lemos MD Primary Care Provider Dr. Fabricio Lemos MD Referring Provider [phone] Patricia INSULATION BLOWER-CRoxann Attending Provider Patricia INSULATION BLOWER-CRoxann Referring Provider Austin Mack MD Emergency Provider Dr. Mae Horton DO Admit Provider Dr. Mae Horton DO Attending Provider Dr. Mae Horton DO Other Provider Rogelio ERNANDEZ, Dr. Johnson Emergency Provider [phone] Dr. Alex Mercado MD Attending Provider Dr. Sherice Fernandez MD Attending Provider Audie INSULATION BLOWER-C, Sharda Attending Provider Jim ERNANDEZ, Dr. Smiley Referring Provider Macario ERNANDEZ, Dr. Jalloh Attending Provider Macario ERNANDEZ, Dr. Jalloh Referring Provider Macario ERNANDEZ, Dr. Jalloh Other Provider Knoble 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, Oleg Unavailable Knoble 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, Oleg Unavailable Rachael Mattson PA-C Attending Provider Raulito ERNANDEZ, Dr. De La Rosa Admit Provider Raulito ERNANDEZ, Dr. De La Rosa Referring Provider Raulito ERNANDEZ, Dr. De La Rosa Other Provider Michi ERNANDEZ, Dr. Keene Attending Provider Vickey ERNANDEZ, Dr. Hancock Attending Provider Michi ERNANDEZ, Dr. Keene Other Provider GIRISH LEMOS Primary Care Unavailab OLEG Jamison Referring Unavailable GIRISH LEMOS Primary Care Unavailab OLEG Jamison Referring Unavailable PODLOGJEANETTE GIBBONS Attending Unavailable GIRISH LEMOS Primary Care Unavailab le GIRISH LEMOS Attending Unavailab le GIRISH LEMOS Primary Care Unavailab le GIRISH LEMOS Primary Care Unavailab OLEG Jamison Referring Unavailable GIRISH LEMOS Primary Care Unavailab [...] Primary Care Unavailab le PODLOGARJEANETTE Attending Unavailable BURSLEY, CHRISTOPHER B Primary Care Unavailab le PODLOGAR, JEANETTE Referring Unavailable BURSLEY, CHRISTOPHER B Primary Care Unavailab le BURSLEY, CHRISTOPHER B Referring Unavailab le BURSLEY, CHRISTOPHER B Primary Care Unavailab le BURSLEY, CHRISTOPHER B Primary Care Unavailab le KNOBLE, OLEG Attending Unavailable BURSLEY, CHRISTOPHER B Primary Care Unavailab le KNOBLE, OLEG Referring Unavailable BURSLEY, CHRISTOPHER B Primary Care Unavailab le BURSLEY, CHRISTOPHER B Attending Unavailab victor hugo Polo MD, Dr. Conway Attending Provider Aminta ERNANDEZ, Dr. Regalado Primary Care Provider Aminta ERNANDEZ, Dr. Regalado Referring Provider Patricia INSULATION BLOWER-C, Roxann Attending Provider Patricia INSULATION BLOWER-C, Roxann Referring Provider Austin Mack MD Emergency Provider Dr. Mae Horton DO Admit Provider Dr. Mae Horton DO Attending Provider Dr. Mae Horton DO Other Provider Rogelio ERNANDEZ, Dr. Johnson Attending Provider [phone] Alex Mercado MD Emergency Provider Dr. Sherice Fernandez MD Attending Provider Audie INSULATION BLOWER-C, Sharda Attending Provider Dr. Sherice Fernandez MD Referring Provider Dr. Yeimi Sorto MD Attending Provider Dr. Yeimi Sorto MD Referring Provider Dr. Yeimi Sorto MD Other Provider Twila BENNETT-Ansley, Rachael Attending Provider Raulito ERNANDEZ, Dr. De La Rosa Admit Provider Raulito ERNANDEZ, Dr. De La Rosa Referring Provider Raulito ERNANDEZ, Dr. De La Rosa Other Provider Dr. Jassi Borden MD Attending Provider Christ ERNANDEZ, Dr. Conway Attending Provider Vickey ERNANDEZ, Dr. Hancock Attending Provider Michi ERNANDEZ, Dr. Keene Other Provider Shun ERNANDEZ, Dr. Bernardo Attending Provider Shun ERNANDEZ, Dr. Bernardo Referring Provider Aminta ERNANDEZ, Dr. Regalado Primary Care Provider Patricia INSULATION BLOWER-C, Roxann Referring Provider Aminta ERNANDEZ, Dr. Regalado Referring Provider Rachael Mattson PA-C Attending Provider Frederick ERNANDEZ, Austin Emergency Provider Shun ERNANDEZ, Dr. Bernardo Attending Provider Shun ERNANDEZ, Dr. Bernardo Referring Provider Lorin 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, Oleg Unavailable Aminta ERNANDEZ, Dr. Regalado Primary Care Provider Aminta ERNANDEZ, Dr. Regalado Referring Provider Audie INSULATION BLOWER-C, Sharda Attending Provider Jim ERNANDEZ, Dr. Smiley Attending Provider Jim ERNANDEZ, Dr. Smiley Referring Provider Dr. Juan Lynch DO Emergency Provider Aminta ERNANDEZ, Dr. Regalado Primary Care Provider Macario ERNANDEZ, Dr. Jalloh Attending Provider Aminta ERNANDEZ, Dr. Regalado Referring Provider Audie INSULATION BLOWER-C, Sharda Attending Provider Dr. Juan Lynch DO Attending Provider Audie INSULATION BLOWER-C, Sharda Referring Provider Aminta ERNANDEZ, Dr. Regalado Primary Care Provider Xi EM, Dr. Finney Attending Provider Aminta ERNANDEZ, Dr. Regalado Primary Care Provider Aminta ERNANDEZ, Dr. Regalado Referring Provider [phone] Audie INSULATION BLOWER-C, Sharda Attending Provider Victor Hugo EM, Dr. Vazquez Emergency Provider Aminta ERNANDEZ, Dr. Regalado Primary Care Provider Aminta ERNANDEZ, Dr. Regalado Referring Provider Victro Hugo EM, Dr. Vazquez Attending Provider Aminta ERNANDEZ, Dr. Regalado Primary Care Provider Aminta ERNANDEZ, Dr. Regalado Referring Provider Audie INSULATION BLOWER-C, Sharda Attending Provider Aminta, Fabricio Primary Care Unavailable Patricia DICKEY, Roxann Referring Unavailable Sherice Fernandez Attending Unavailable Bursley, Fabricio Primary Care Unavailable Az Hoffmann Attending Unavailable Az Hoffmann Referring Unavailable Bursley, Fabricio Primary Care Unavailable Mae Horton Attending Unavailable Mae Horton Admitting Unavailable Estrella Cabezas Referring Unavailable Cabezas, Estrella Consulting Unavailable Michi, Jassi Attending Unavailable Estrella Cabezas Admitting Unavailable Bursley, Fabricio Primary Care Unavailable Michi, Jassi Consulting Unavailable Bursley, Fabricio Referring Unavailable Bursley, Fabricio Primary Care Unavailable Yeimi Sorto Attending Unavailable Bursley, Fabricio Primary Care Unavailable Alex Mercado Attending Unavailable Juan Lynch Attending Unavailable Bursley, Fabricio Primary Care Unavailable Bursley, Fabricio Primary Care Unavailable George Fajardo Attending Unavailable Az Hoffmann Referring Unavailable Az Hoffmann Attending Unavailable Bursley, Fabricio Primary Care Unavailable Audie INSULATION BLOWER, Sharda Attending Unavailable Audie INSULATION BLOWER, Sharda Referring Unavailable Bursley, Fabricio Primary Care Unavailable Bursley, Fabricio Primary Care Unavailable Gomez INSULATION BLOWER, Roxann Attending Unavailable Gomez INSULATION BLOWER, Roxann Referring Unavailable Bursley, Fabricio Primary Care Unavailable Bursley, Fabricio Referring Unavailable Audie INSULATION BLOWER, Sharda Attending Unavailable Bursley, Fabricio Primary Care Unavailable Bursley, Fabricio Referring Unavailable Audie INSULATION BLOWER, Sharda Attending Unavailable Bursley, Fabricio Primary Care Unavailable Bursley, Fabricio Referring Unavailable Isckarus, Mansour Attending Unavailable Bursley, Fabricio Primary Care Unavailable XiJosee Attending Unavailable Bursley, Fabricio Referring Unavailable Bursley, Fabricio Primary Care Unavailable Mae Horton Attending Unavailable Mae Horton Consulting Unavailable Mae Horton Admitting Unavailable Bursley, Fabricio Primary Care Unavailable Isckarus, Mansour Attending Unavailable Isckarus, Mansour Referring Unavailable Bursley, Fabricio Primary Care Unavailable Robotham, Yeimi Referring Unavailable Robotham, Yeiim Attending Unavailable Bursley, Fabricio Primary Care Unavailable Robotham, Yeimi Attending Unavailable Robotham, Yeimi Consulting Unavailable Robotham, Yeimi Referring Unavailable Isckarus, Mansour Referring Unavailable Isckarus, Mansour Attending Unavailable Bursley, Fabricio Primary Care Unavailable Bursley, Fabricio Primary Care Unavailable Patricia INSULATION BLOWER, Roxann Attending Unavailable Patricia INSULATION BLOWER, Roxann Referring Unavailable Xi, Reg Attending Unavailable Bursley, Fabricio Primary Care Unavailable Bursley, Fabricio Primary Care Unavailable Cabezas, Estrella Referring Unavailable Cabezas, Estrella Consulting Unavailable Raulito Estrella Admitting Unavailable Jassi Borden Attending Unavailable Bursley, Fabricio Primary Care Unavailable Isckarus, Mansour Attending Unavailable Isckarus, Mansour Referring Unavailable Cabezas, Estrella Attending Unavailable Cabezas, Estrella Referring Unavailable Man Polo Attending Unavailable Bursley, Fabricio Primary Care Unavailable Bursley, Fabricio Primary Care Unavailable XiJosee Attending Unavailable Bursley, Fabricio Primary Care Unavailable Xi, Reg Attending Unavailable Bursley, Fabricio Primary Care Unavailable Bursley, Fabricio Referring Unavailable Isckarus, Mansour Attending Unavailable Bursley, Fabricio Primary Care Unavailable Bursley, Fabricio Referring Unavailable Isckarus, Mansour Attending Unavailable Bursley, Fabricio Primary Care Unavailable Bursley, Fabricio Referring Unavailable Xi, Reg Attending Unavailable Bursley, Fabricio Primary Care Unavailable Bursley, Fabricio Referring Unavailable Isckarus, Mansour Attending Unavailable Bursley, Fabricio Referring Unavailable Isckarus, Mansour Attending Unavailable Bursley, Fabricio Primary Care Unavailable Bursley, Fabricio Referring Unavailable Sherice Fernandez Attending Unavailable Bursley, Fabricio Primary Care Unavailable Bursley, Fabricio Referring Unavailable Audie INSULATION BLOWER, Sharda Attending Unavailable Bursley, Fabricio Primary Care Unavailable Bursley, Fabricio Primary Care Unavailable Bursley, Fabricio Referring Unavailable Gomez INSULATION BLOWER, Roxann Attending Unavailable Bursley, Fabricio Referring Unavailable Bursley, Fabricio Primary Care Unavailable Audie INSULATION BLOWER, Sharda Attending Unavailable Bursley, Fabricio Referring Unavailable Bursley, Fabricio Primary Care Unavailable Rachael Mattson Attending Unavailable Bursley, Fabricio Referring Unavailable Bursley, Fabricio Primary Care Unavailable Audie INSULATION BLOWER, Sharda Attending Unavailable Bursley, Fabricio Primary Care Unavailable Bursley, Fabricio Referring Unavailable Gomez INSULATION BLOWER, Roxann Attending Unavailable Bursley, Fabricio Primary Care Unavailable Reg Layne Attending Unavailable Santi Hurd Attending Unavailable Bursley, Fabricio Primary Care Unavailable Allergies Allergy Classification Reported Allergen(s) Allergy Type Date of Onset Reaction(s) Facility (20 sources) Angiotensin Converting Enzyme (Meagan) Inhibitors; Translations: [MEAGAN INHIBITORS] Allergy to substance 8 Rash [facility] Work Phone: (20 sources) Codeine; Translations: [CODEINE] Drug Allergy 8 Vomiting, Other: See Comments [facility] Work Phone: (20 sources) predniSONE Drug Allergy 2 Other [facility] Comment on above: patient does not rec all the reaction, just states she can't take prednisone. (20 sources) walnut allergenic extract; Translations: [WALNUT] Drug Allergy 8 Unknown [facility] (20 sources) Ywwzkmx-Njw-Vzl Reductase Inhibitor; Translations: [Tgyqgfs-Wkb-Hb a Reductase Inhibitor] Propensity to adverse reactions 2 [facility] (20 sources) ezetimibe; Translations: [EZETIMIBE] Drug Allergy 1 Myalgia [facility] Work Phone: (2 sources) HMG-CoA reductase inhibitor; Translations: [KKLUXUB-BPU-KW A REDUCTASE INHIBITORS] Drug Intolerance 8 Myalgia [facility] Work Phone: (20 sources) Mirtazapine; Translations: [MIRTAZAPINE] Drug Allergy 1 Other: See Comments [facility] Work Phone: (20 sources) HMG-CoA reductase inhibitor Drug Intolerance 8 Myalgia [facility] Work Phone: (1 source) Codeine Drug Allergy [facility] Repository (1 source) Codeine Drug Allergy 5 [facility] Repository (1 source) predniSONE Drug Allergy 5 [facility] Repository (1 source) walnut Drug allergy (disorder) 5 [facility] Repository Medications Current Medications Medication Drug Class(es) Dates Sig (Normalized) Sig (Original) [id number] 200 actuat albuterol 0.09 mg/actuat metered dose [...] 30 capsule 01/26/2025 02/05/2025 Active Disability Placard (19 sources) Start: 09-15-20 Disability Placard Active 0 [...] daily. Rinse mouth after use. 1 Each 07/15/2024 Active Comment on above: Use 2 [...] 11:10am nerve pain take 1 capsule by mo [facility] twice daily gabapentin (NEURONTIN) 400 mg capsule [...] mg/ml / prilocaine 25 mg/ml topical cream (14 sources) Antiarrhythmic, Amide Local Anesthetic Start: 12-15-2024 [...] twice daily. mirtazapine 15 mg oral tablet (14 sources) Start: 12-29-2024 take 1 tablet by mouth at bedtime Mirtazapine 15 mg tablet Active 15 mg PO AT BEDTIME 30 December 29, 2024 12:00am Disturbance in sleep behavior Sleep disorder, unspecified sleep Start: 12-29-2024 morphine sulfate 30 mg extended release oral tablet (9 sources) Opioid Agonist Start: 04-20-2025 take 1 tablet by mouth every twelve hours Morphine 30 mg tablet extended release Active 30 mg PO Q12H April 20, 2025 12:00am Start: 04-13-2025 take 1 tablet by trina th every four to six hours as needed for pain Morphine 15 mg tablet Active 15 mg PO EVERY 4-6 HOURS as needed for pain 0 April 13, 2025 12:00am mv,jaci,iron,mn/folic acid/ch ol (KXTW-OMGO-BCGID, PABA, ORAL) (20 sources) take 1 tablet by mouth once daily mv,jaci,iron,mn/folic acid/chol (KRYA-MLQO-UCGGQ, PABA, ORAL) Take 1 tablet by mouth once daily. Active take 1 tablet by mouth once nica y mv,jaci,iron,mn/folic acid/chol (HMVU-PNJD-CRFZL, PABA, ORAL) Take 1 tablet by mouth [...] 1 capsule by mo uth twice daily. Pnv No.506-Ut-Tz2-Dha-E pa-Fish ( Gummies) 400 mcg-35 mg- 25 mg-5 mg tablet,chewable (19 sources) Start: 01-05-2022 take 2 tablets by mouth once daily Pnv No.315-Nu-Yr4-Dha -Epa-Fish ( Gummies) 400 mcg-35 mg- 25 mg-5 mg tablet,chewable Active 2 TABLET PO DAILY January 05, 2022 1:15pm Start: 01-05-2022 End: 09-04-2022 Pnv No.132-Ci-Hb9-Dha-Epa-Fi sh ( Gummies) 400 mcg-35 mg- 25 mg-5 mg tablet,chewable Discontinued 2 {tbl} PO DAILY January 05, 2022 12:00am September 04, 2022 1:49pm Start: 01-05-2022 End: 09-04-2022 take 2 tablets by mouth once daily Pnv No.215-Ba-Ok7-Cso-Wun-Coae ( Gummies) 400 mcg-35 mg- 25 mg-5 mg tablet,chewable Discontinued 2 TABLET PO DAILY January 05, 2022 12:00am September 04, 2022 1:49pm Start: 01-05-2022 End: 09-04-2022 take 2 tablets by mouth once daily Pnv No.269-Zj-Uq8-Sko-Mwd-Gphc ( Gummies) 400 mcg-35 mg- 25 mg-5 [...] 2022 1:19pm prochlorperazine 10 mg oral tablet (14 sources) Phenothiazine Start: 12-15-2024 take 1 tablet by mouth every six hours as needed for nausea and vomiting Prochlorperazine Maleate 10 mg tablet Active 10 mg PO EVERY 6 HOURS as needed for nausea and vomiting December 15, 2024 12:00am Chemotherapy-induced nausea and vomiting Nausea with vomiting, unspecified Adverse effect of antineoplastic and immunosuppressive drugs, initial encounter Fnwtuyk-Axic-Koojr-Or eg-Capryl (4 sources) Start: 01-05-2022 take 2 capsules by mouth once daily Ncujtez-Wftq-Lbxab-Oreg- Capryl Active 2 CAP PO DAILY January 05, 2022 1:15pm Start: 01-05-2022 End: 05-09-2022 take 2 capsules by mouth once daily Idntbsm-Ldnb-Mtdjr-Oreg-Capryl Discontin ued 2 CAP PO DAILY January 05, 2022 12:00am May 09, 2022 10:07am Start: 01-05-2022 End: 05-09-2022 take 2 capsules by mouth once daily Dvvlvld-Ityo-Agpgq-Oreg-Capryl Discontin ued 2 CAP PO DAILY January 04, 2022 11:00pm May 09, 2022 9:07am Vitamin B Complex (B Complex-Vitamin B12) tablet (19 sources) Start: 01-05-2022 take 1 tablet by [...] / oxyCODONE hydrochloride 5 mg oral tablet (20 sources) Opioid Agonist Start: 09-15-2020 End: 05-28-2024 [...] / ipratropium bromide 0.167 mg/ml inhalation solution (20 sources) Anticholinergic, beta2-Adrenergic Agonist Start: 05-09-2022 End: [...] 2022 12:00am allopurinol 300 mg oral tablet (16 sources) Xanthine Oxidase Inhibitor Start: 11-24-2024 End: 12-11-2024 take 1 tablet by mouth once daily Allopurinol 300 mg tablet Discontinued 300 mg PO daily 7 0 November 24, 2024 12:00am December 11, 2024 8:20am amoxicillin 875 mg / clavulanate 125 mg oral tablet (20 sources) Penicillin-class Antibacterial Start: 11-17-2021 End: 05-09-2022 [...] 11:18am COVID-19 azithromycin 250 mg oral tablet (17 sources) Macrolide Antimicrobial Start: 09-02-2024 End: 11-03-2024 [...] 12:19pm Comment on above: once daily. Calcium (14 sources) Phosphate Binder, Calcium Start: 05-28-2024 End: [...] Start: 05-28-2024 take 1 capsule by mo [facility] once daily Calcium 600 mg capsule Active [...] Comment on above: [facility] cholecalciferol 0.025 mg oral capsule [...] 10:48am doxycycline hyclate 100 mg oral tablet (20 sources) Tetracycline-class Drug Start: 11-17-2021 End: 05-09-2022 [...] completed) Start: 05-17-2021 take 1 capsule by [facility] once daily, then take 1 capsule by mouth once daily INV VITAMIN D3 5000 UNITS CAPSULE (IRB [id number]) Take 1 capsule by mouth once daily. For Investigational Drug Use Only. PI: Krystin Rodrigues, PhD. Take one capsule by mouth daily for 3 months prior to surgery and 3 months after surgery. 90 capsule 3 05/17/2021 Active Comment on above: Take 1 capsule by [facility] once daily. For Investigational Drug Use Only. PI: Krystin Rodrigues, PhD. Take one capsule by mouth daily for 3 months prior to surgery and 3 months after surgery. levoFLOXacin 750 mg oral tablet (20 sources) Quinolone Antimicrobial Start: 09-04-20 End: 09-11-20 [...] Discontinued Start: 11-12-2024 take 1 tablet by [facility] once daily Losartan 25 mg tablet Active [...] capsules by m outh once daily. nystatin [id number] unt/ml oral suspension (16 sources) Polyene Antifungal Start: 11-24-2024 End: 12-11-2024 [...] on above: Take 2 tablets by mo uth once daily. sertraline 50 mg oral tablet (9 sources) Serotonin Reuptake Inhibitor Start: 1 End: 2 take 1 tablet by mouth once daily sertraline (ZOLOFT) 50 mg tablet Indications: Anxiety with depression Take 1 tablet by mouth once daily. 30 tablet 2 04/20/2021 08/22/2022 Discontinued (Other) Comment on above: Take 1 tablet by trina th once daily. traZODone hydrochloride 50 mg oral tablet (14 sources) Serotonin Reuptake Inhibitor Start: End: take 1 tablet by mouth at bedtime Trazodone 50 mg tablet Discontinued 50 mg PO AT BEDTIME December 29, 2024 12:00am December 29, 2024 2:50pm Start: 12-29-2024 End: 12-29-2024 Armxtdlu-Ifvh-Iuvuk-Oreg-Cap ry (1 source) Start: 01-05-2022 End: 05-09-2022 take 2 capsules by mouth once daily Pgcsvuej-Ngro-Hiswm-Oreg-Capry Discontinued 2 CAP PO DAILY January 05, 2022 12:00am May 09, 2022 10:07am Ydnjdrch-Dsod-Tfdfs-Oreg-Cap ry 100 mg-150 mg- 50 mg-150 mg capsule (14 sources) Start: 01-05-2022 End: 05-09-2022 take 1 capsule by mouth once daily Vjruvkzv-Cfwu-Osyeq-Oreg-Capry 100 mg-150 mg- 50 mg-150 mg capsule [...] disorder; Translations: [Other specified anxiety disorders] Onset: 04-20-2021 Chronic Asthma (16 sources) Asthma; Translations: [Unspecified asthma, uncomplicated] 11-24-2024 [...] lobes. Chronic obstructive pulmonary disease and bronchiectasis (20 sources) Bronchitis; Translations: [Bronchitis, not specified as acute or chronic] 11-20-2021 Episodic Conduction disorders (4 sources) First degree atrioventricular block; Translations: [Atrioventricular block, first degree] Onset: 4 Chronic Deficiency and other anemia (14 sources) Anemia; Translations: [Anemia, unspecified] 04-06-2025 Episodic Deficiency and other anemia (1 source) Anemia, unspecified; Translations: [Anemia, unspecified] Onset: 5 [...] Translations: [Gross hematuria] Episodic Heart valve disorders (16 sources) Heart murmur; Translations: [Cardiac murmur, unspecified] [...] Translations: [Tinea corporis] Episodic Nausea and vomiting (20 sources) Nausea; Translations: [Nausea] Onset: 5 11-15-2021 Episodic Osteoarthritis (16 sources) Arthritis; Translations: [Unspecified osteoarthritis, unspecified site] 11-24-2024 Chronic Other circulatory disease (20 sources) Device in situ; Translations: [Presence of other vascular implants and grafts] 12-22-2024 Chronic Other connective tissue disease (1 source) Pain of toe of left foot; Translations: [Pain in left toe(s)] Episodic Other connective tissue disease (1 source) Cramp; Translations: [Cramp and spasm] 01-08-2024 Episodic Other connective tissue disease (14 sources) Monoparesis - leg; Translations: [Other symptoms and signs involving the musculoskeletal system] 04-06-2025 Episodic Other connective tissue disease (1 source) Other symptoms and signs involving the musculoskeletal system; Translations: [Other symptoms and signs involving the musculoskeletal system] Onset: Episodic Other ear and sense organ disorders (16 sources) Hearing loss; Translations: [Unspecified hearing loss, unspecified ear] 11-24-2024 Chronic Other female genital disorders (1 source) Pain in female genitalia on intercourse; Translations: [Unspecified dyspareunia] Chronic Other female genital disorders (1 source) Vulval irritation; Translations: [Other specified noninflammatory disorders of vulva and perineum] Episodic Other gastrointestinal disorders (20 sources) Acute diarrhea; Translations: [Diarrhea, unspecified] 09-21-2022 Episodic Other gastrointestinal disorders (5 sources) Diarrhea; Translations: [Diarrhea, unspecified] 11-15-2021 Episodic Other liver diseases (5 sources) Liver mass; Translations: [Hepatomegaly, not elsewhere classified] 10-17-2024 Episodic Other liver diseases (17 sources) Enzyme level - finding; Translations: [Elevated transaminase measurement] 11-23-2024 Episodic Other liver diseases (20 sources) High lipase level in serum; Translations: [Abnormal levels of other serum enzymes] 11-12-2024 Episodic Other liver diseases (20 sources) Jaundice; Translations: [Unspecified jaundice] 11-24-2024 Episodic Other liver diseases (1 source) Unspecified jaundice; Translations: [Unspecified jaundice] Onset: Episodic Other lower respiratory disease (19 sources) Fibrosis of lung; Translations: [Pulmonary fibrosis, unspecified] 03-13-2023 Chronic Other lower respiratory disease (1 source) Pulmonary fibrosis, unspecified; Translations: [Postinflammatory pulmonary fibrosis] 03-13-2023 Chronic Other lower respiratory disease (20 sources) Respiratory insufficiency; Translations: [Other abnormalities of breathing] 11-12-2021 Episodic Other lower respiratory disease (20 sources) Hypoxia; Translations: [Hypoxemia] 09-15-2020 Episodic Other lower respiratory disease (1 source) Other abnormalities of breathing; Translations: [Other respiratory abnormalities] Episodic Other lower respiratory disease (20 sources) Acute lower respiratory tract infection; Translations: [...] Chronic Other nutritional; endocrine; and metabolic disorders (7 sources) Hypercalcemia; Translations: [Hypercalcemia] 04-27-2025 Chronic Other nutritional; endocrine; and metabolic disorders (2 sources) Hypercalcemia; Translations: [Hypercalcemia] Onset: Chronic Other nutritional; endocrine; and metabolic disorders [...] caused by tuberculosis or sexually transmitted disease) (20 sources) Pneumonia; Translations: [Pneumonia, unspecified organism] 11-25-2021 [...] [Localized edema] 12-02-2024 Episodic Residual codes; unclassified (14 sources) Disturbance in sleep behavior; Translations: [Sleep disorder, unspecified] 12-29-2024 Episodic Respiratory failure; insufficiency; arrest (adult) (16 sources) Chronic hypoxemic respiratory failure; Translations: [Chronic respiratory failure with hypoxia] 11-24-2024 Chronic Secondary malignancies (20 sources) Secondary malignant neoplasm of liver; 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] 11-12-2024 Chronic Secondary malignancies (20 sources) Secondary malignant neoplastic disease; Translations: [Secondary [...] neoplasm to regional lymph node (HCC)] Onset: 5 Chronic Spondylosis; intervertebral disc disorders; other [...] unspecified] Onset: 8 11-14-2017 Chronic Thyroid disorders (16 sources) Disorder of thyroid gland; Translations: [Disorder of thyroid, unspecified] 11-24-2024 Episodic Comment on above: ON MED Unclassified (20 sources) High grade neuroendocrine carcinoma of lung; Translations: [C7A.1 - Malignant poorly differentiated neuroendocrine tumors] Unclassified (14 sources) Malignant neoplasm metastatic to bone Unclassified (11 sources) 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 Unclassified [...] malignant neoplasm of lymph node, unspecified Unclassified (11 sources) C34.12 - Malignant neoplasm of upper lobe, left bronchus or lung,C79.51 - Secondary malignant neoplasm of bone,C7A.1 - Malignant poorly differentiated neuroendocrine tumors,C77.9 - Secondary and unspecified malignant neoplasm of lymph node, unspecified,C78.7 - Secondary malignant neoplasm of liver and intrahepatic bile duct Unclassified (1 source) Low back pain, unspecified; Translations: [Low back pain, unspecified] Onset: 5 Viral infection (20 sources) Disease caused by 2019-nCoV; Translations: [COVID-19] [...] Test Name Value Interpretation Reference Range Facility Anion gap in Serum or Plasma Ordered By: Sherice Fernandez on 04-29-2025 Anion gap [Moles/Vol] 13 mmol/L 5-15 [facility] BUN/creatinine ratioOrdered By: Sherice Fernandez on 04-29-2025 Urea nitrogen/Creatinine [Mass ratio] 11.4 mg/mg 10- [facility] Bilirubin, totalOrdered By: Sherice Fernandez on 04-29-2025 Bilirubin [Mass/Vol] 1.28 mg/dL 0.00-1.30 [facility] Carbon dioxide, total [Moles /volume] in Central venous bloodOrdered By: Sherice Fernandez on 04-29-2025 CO2 [Moles/Vol] 22.2 mmol/L 21.0-32.0 [facility] Chloride assayOrdered By: Melva Fernandez on 04-29-2025 Chloride [Moles/Vol] 106 mmol/L 98-108 [facility] Comprehensive Metabolic Prof ilon 04-29-2025 Albumin [Mass/Vol] 3.4 g/dL Normal 3.4-4.8 [facility] Comment on above: Performed By: #### L 500.4050 ####[facility] [address] [place], [place], [id number] Albumin/Globulin [Mass ratio] 1.1 {ratio} Normal 0.9-2.4 [facility] Comment on above: Performed By: #### L 500.4050 ####[facility] [address] [place], [address] ALK PHOS 257 U/L High 35-104 [facility] Comment on above: Performed By: #### L 500.4050 ####[facility] [address] [place], [address] ALT [Catalytic activity/Vol] 48 U/L High <=34 [facility] Comment on above: Performed By: #### L 500.4050 ####[facility] [address] [place], [address] AST [Catalytic activity/Vol] 333 U/L High <=31 [facility] Comment on above: Performed By: #### L 500.4050 ####[facility] [address] [place], [address] Bilirubin [Mass/Vol] 1.28 mg/dL Normal 0.00-1.30 [facility] Comment on above: Performed By: #### L 500.4050 ####[facility] [address] [place], [address] BUN/CRE 11.4 RATIO Normal 10-20 [facility] Comment on above: Performed By: #### L 500.4050 ####[facility] [address] [place], [address] Calcium [Mass/Vol] 10.5 mg/dL Normal 7.6-11.0 [facility] Comment on above: Performed By: #### L 500.4050 ####[facility] [address] [place], [address] Chloride [Moles/Vol] 106 mmol/L Normal 98-108 [facility] Comment on above: Performed By: #### L 500.4050 ####[facility] [address] [place], [address] CO2 [Moles/Vol] 22.2 mmol/L Normal 21.0-32.0 [facility] Comment on above: Performed By: #### L 500.4050 ####[facility] [address] [place], [address] Creatinine [Mass/Vol] 0.94 mg/dL Normal 0.70-1.20 [facility] Comment on above: Performed By: #### L 500.4050 ####[facility] [address] [place], [address] ECRCL 49.97 ml/min Low 50-250 [facility] Comment on above: Performed By: #### L 500.4050 ####[facility] [address] [place], [address] GAP 13 Normal 5-15 [facility] Comment on above: Performed By: #### L 500.4050 ####[facility] [address] [place], [address] GFR/1.73 sq M.predicted among non-blacks MDRD (S/P/Bld) [Vol rate/Area] 65 mL/min/{1.73_m2} Normal >60 [facility] Comment on above: Result Comment: mL/m in/1.73m2 CKD-EPI Creatinine Equation (2020) Performed By: #### L 500.4050 ####[facility] [address] [place], [address] Globulin (S) [Mass/Vol] 3.1 g/dL Normal 2.2-4.2 [facility] Comment on above: Performed By: #### L 500.4050 ####[facility] [address] [place], [address] Glucose [Mass/Vol] 153 mg/dL High 70-99 [facility] Comment on above: Performed By: #### L 500.4050 ####[facility] [address] [place], [address] Potassium [Moles/Vol] 3.9 mmol/L Normal 3.3-5.1 [facility] Comment on above: Performed By: #### L 500.4050 ####[facility] [address] [place], [address] Sodium [Moles/Vol] 141 mmol/L Normal 133-145 [facility] Comment on above: Performed By: #### L 500.4050 ####[facility] [address] [place], [place], [id number] T PROT 6.6 g/dL Normal 5.9-8.4 [facility] Comment on above: Performed By: #### L 500.4050 ####[facility] [address] [place], [place], [id number] Urea nitrogen [Mass/Vol] 11 mg/dL Normal 4-19 [facility] Comment on above: Performed By: #### L 500.4050 ####[facility] [address] [place], [place], [id number] Glomerular filtration rate ( GFR) estimation/1.73 sq m using serum, plasma, or whole bOrdered By: Sherice Fernandez on 04-29-2025 GFR/1.73 sq M.predicted among non-blacks MDRD (S/P/Bld) [Vol rate/Area] 65 mL/min/{1.73_m2} >60 [facility] Comment on above: mL/min/1.73m2 CKD-EP I Creatinine Equation (2020) L509.6001on 04-29-2025 CORTISOL 18.10 ug/dL Normal 6.02-18.40 [facility] Comment on above: Performed By: #### L 509.6001 ####[facility] [address] [place], [place], [id number] Laboratory - Chemistry and C hemistry - challengeOrdered By: Sherice Fernandez on 04-29-2025 AST [Catalytic activity/Vol] 333 U/L High <32 [facility] Oncology Visit Reporton 04-17 Oncology Visit Report Normal [facility] Potassium measurement (mass/ volume)Ordered By: Sherice Fernandez on 04-29-2025 Potassium (Unsp spec) [Mass/Vol] 3.9 mmol/L 3.3-5.1 [facility] Serum creatinine measurement (mass/volume)Ordered By: Sherice Fernandez on 04-29-2025 Creatinine [Mass/Vol] 0.94 mg/dL 0.70-1.20 [facility] Serum globulin measurementOr dered By: Sherice Fernandez on 04-29-2025 Globulin (S) [Mass/Vol] 3.1 g/dL 2.2-4.2 [facility] Serum glucose measurement (m ass/volume)Ordered By: Sherice Fernandez on 04-29-2025 Glucose [Mass/Vol] 153 mg/dL High 70-99 [facility] Serum or plasma alanine encarnacion otransferase (ALT) measurementOrdered By: Sherice Fernandez on 04-29-2025 ALT [Catalytic activity/Vol] 48 U/L High <35 [facility] Serum or plasma albumin jayro urement (mass/volume)Ordered By: Sherice Fernandez on 04-29-2025 Albumin [Mass/Vol] 3.4 g/dL 3.4-4.8 [facility] Serum or plasma albumin/glob ulin mass ratioOrdered By: Sherice Fernandez on 04-29-2025 Albumin/Globulin [Mass ratio] 1.1 {ratio} 0.9-2.4 [facility] Serum or plasma alkaline lukas sphatase measurementOrdered By: Sherice Fernandez on 04-29-2025 ALP [Catalytic activity/Vol] 257 U/L High 35-104 [facility] Serum or plasma calcium jayro urement (mass/volume)Ordered By: Sherice Fernandez on 04-29-2025 Calcium [Mass/Vol] 10.5 mg/dL 7.6-11.0 [facility] Serum or plasma urea nitroge n measurement (mass/volume)Ordered By: Sherice Fernandez on 04-29-2025 Urea nitrogen [Mass/Vol] 11 mg/dL 4-19 [facility] Sodium levelOrdered By: Carmella Fernandez on 04-29-2025 Sodium [Moles/Vol] 141 mmol/L 133-145 [facility] Total proteinOrdered By: Nain Fernandez on 04-29-2025 Protein [Mass/Vol] 6.6 g/dL 5.9-8.4 [facility] Radiation Oncology Visiton 0 04-28-2025 Radiation Oncology Visit Normal [facility] Radiation Oncology Visit Normal [facility] Absolute lymphocyte countOrd ered By: [facility] Jim on 04-27-2025 Lymphocytes Auto (Unsp spec) [#/Vol] 0.50 10*3/uL Low 0.83-4.51 [facility] Absolute neutrophil countOrd ered By: [facility] Sarahestefany on 04-27-2025 Neutrophils (Bld) [#/Vol] 4.9 10*3/uL 2.0-7.7 [facility] Anion gap in Serum or Plasma [facility] 04-[facility] Anion gap [Moles/Vol] 14 mmol/L 5-15 [facility] Automated lymphocyte count a s percentage of total leukocytesOrdered By: [facility] Jim on 04-27-2025 Lymphocytes/100 WBC Auto (Unsp spec) 8.2 % Low 19-41 [facility] BUN/creatinine ratioOrdered By: [facility] Jim on 04-27-2025 Urea nitrogen/Creatinine [Mass ratio] 11.5 mg/mg 10- [facility] Basophil percentageOrdered B y: Sherice Fernandez on 04-27-2025 Basophils/100 WBC (Bld) 0.7 % 0-1 [facility] Bilirubin, totalOrdered By: [facility] on 04-27-2025 Bilirubin [Mass/Vol] 1.15 mg/dL 0.00-1.30 [facility] CBC W/Diff, Automatedon 04-17 Absolute Lymph 0.50 X10 3/uL Low 0.83-4.51 [facility] Comment on above: Performed By: #### L 500.4050, L100.0100, L501.2300, L501.5200 ####[facility] [address] [place], [address] Absolute Neut 4.9 X10 3/uL Normal 2.0-7.7 [facility] Comment on above: Performed By: #### L 500.4050, L100.0100, L501.2300, L501.5200 ####[facility] [address] [place], [address] Basophils/100 WBC (Bld) 0.7 % Normal 0-1 [facility] Comment on above: Performed By: #### L 500.4050, L100.0100, L501.2300, L501.5200 ####[facility] [address] [place], [address] Eosinophils/100 WBC (Bld) 0.8 % Normal 0-5 [facility] Comment on above: Performed By: #### L 500.4050, L100.0100, L501.2300, L501.5200 ####[facility] [address] [place], [address] Erythrocyte distribution width (RBC) [Ratio] 17.0 % High 11.6-14.6 [facility] Comment on above: Performed By: #### L 500.4050, L100.0100, L501.2300, L501.5200 ####[facility] [address] [place], [address] Hematocrit (Bld) [Volume fraction] 31.7 % Low 37-47 [facility] Comment on above: Performed By: #### L 500.4050, L100.0100, L501.2300, L501.5200 ####[facility] [address] [place], [address] Hemoglobin (Bld) [Mass/Vol] 10.4 g/dL Low 12.0-15.0 [facility] Comment on above: Performed By: #### L 500.4050, L100.0100, L501.2300, L501.5200 ####[facility] [address] [place], [address] IG% 0.500 Normal 0.0-0.9 [facility] Comment on above: Result Comment: IG% - Immature Granulocytes (promyelocytes, myelocytes andmetamyelocytes) > 1% indicates that a LEFT SHIFT is Present. Performed By: #### L 500.4050, L100.0100, L501.2300, L501.5200 ####[facility] [address] [place], [address] Lymphocytes/100 WBC (Bld) 8.2 % Low 19-41 [facility] Comment on above: Performed By: #### L 500.4050, L100.0100, L501.2300, L501.5200 ####[facility] [address] [place], [address] MCH (RBC) [Entitic mass] 32.9 pg High 27.0-32.0 [facility] Comment on above: Performed By: #### L 500.4050, L100.0100, L501.2300, L501.5200 ####[facility] [address] [place], [address] MCHC (RBC) [Mass/Vol] 32.8 g/dL Normal 32-36 [facility] Comment on above: Performed By: #### L 500.4050, L100.0100, L501.2300, L501.5200 ####[facility] [address] [place], [address] MCV (RBC) [Entitic vol] 100.3 fL High 81-99 [facility] Comment on above: Performed By: #### L 500.4050, L100.0100, L501.2300, L501.5200 ####[facility] [address] [place], [address] Monocytes/100 WBC (Bld) 9.7 % Normal 0-10 [facility] Comment on above: Performed By: #### L 500.4050, L100.0100, L501.2300, L501.5200 ####[facility] [address] [place], [address] Neutrophils/100 WBC (Bld) 80.1 % High 47-70 [facility] Comment on above: Performed By: #### L 500.4050, L100.0100, L501.2300, L501.5200 ####[facility] [address] [place], [address] Nucleated RBC (Bld) [#/Vol] 0 10*3/uL Normal 0-5 [facility] Comment on above: Performed By: #### L 500.4050, L100.0100, L501.2300, L501.5200 ####[facility] [address] [place], [address] Platelet mean volume (Bld) [Entitic vol] 11.4 fL Normal 6.2-12.0 [facility] Comment on above: Performed By: #### L 500.4050, L100.0100, L501.2300, L501.5200 ####[facility] [address] [place], [address] Platelets (Bld) [#/Vol] 142 10*3/uL Low 150-450 [facility] Comment on above: Performed By: #### L 500.4050, L100.0100, L501.2300, L501.5200 ####[facility] [address] [place], [address] RBC (Bld) [#/Vol] 3.16 10*6/uL Low 4.2-5.4 [facility] Comment on above: Performed By: #### L 500.4050, L100.0100, L501.2300, L501.5200 ####[facility] [address] [place], [address] RDW SD 62.2 fl High 35.1-43.9 [facility] Comment on above: Performed By: #### L 500.4050, L100.0100, L501.2300, L501.5200 ####[facility] [address] [place], [address] WBC (Bld) [#/Vol] 6.1 10*3/uL Normal 4.4-11.0 [facility] Comment on above: Performed By: #### L 500.4050, L100.0100, L501.2300, L501.5200 ####[facility] [address] [place], [address] Carbon dioxide, total [Moles /volume] in Central venous bloodOrdered By: Sherice Fernandez on 04-27-2025 CO2 [Moles/Vol] 22.7 mmol/L 21.0-32.0 [facility] Chloride assayOrdered By: Melva Fernandez on 04-27-2025 Chloride [Moles/Vol] 105 mmol/L 98-108 [facility] Comprehensive Metabolic Prof ilon 04-27-2025 Albumin [Mass/Vol] 3.5 g/dL Normal 3.4-4.8 [facility] Comment on above: Performed By: #### L 500.4050, L100.0100, L501.2300, L501.5200 ####[facility] [address] [place], [address] Albumin/Globulin [Mass ratio] 1.2 {ratio} Normal 0.9-2.4 [facility] Comment on above: Performed By: #### L 500.4050, L100.0100, L501.2300, L501.5200 ####[facility] [address] [place], [address] ALK PHOS 252 U/L High 35-104 [facility] Comment on above: Performed By: #### L 500.4050, L100.0100, L501.2300, L501.5200 ####[facility] [address] [place], [address] ALT [Catalytic activity/Vol] 41 U/L High <=34 [facility] Comment on above: Performed By: #### L 500.4050, L100.0100, L501.2300, L501.5200 ####[facility] [address] [place], [address] AST [Catalytic activity/Vol] 322 U/L High <=31 [facility] Comment on above: Performed By: #### L 500.4050, L100.0100, L501.2300, L501.5200 ####[facility] [address] [place], [address] Bilirubin [Mass/Vol] 1.15 mg/dL Normal 0.00-1.30 [facility] Comment on above: Performed By: #### L 500.4050, L100.0100, L501.2300, L501.5200 ####[facility] [address] [place], [address] BUN/CRE 11.5 RATIO Normal 10-20 [facility] Comment on above: Performed By: #### L 500.4050, L100.0100, L501.2300, L501.5200 ####[facility] [address] [place], [address] Calcium [Mass/Vol] 11.8 mg/dL High 7.6-11.0 [facility] Comment on above: Performed By: #### L 500.4050, L100.0100, L501.2300, L501.5200 ####[facility] [address] [place], [address] Chloride [Moles/Vol] 105 mmol/L Normal 98-108 [facility] Comment on above: Performed By: #### L 500.4050, L100.0100, L501.2300, L501.5200 ####[facility] [address] [place], [address] CO2 [Moles/Vol] 22.7 mmol/L Normal 21.0-32.0 [facility] Comment on above: Performed By: #### L 500.4050, L100.0100, L501.2300, L501.5200 ####[facility] [address] [place], [address] Creatinine [Mass/Vol] 0.85 mg/dL Normal 0.70-1.20 [facility] Comment on above: Performed By: #### L 500.4050, L100.0100, L501.2300, L501.5200 ####[facility] [address] [place], [address] ECRCL 55.69 ml/min Normal 50-250 [facility] Comment on above: Performed By: #### L 500.4050, L100.0100, L501.2300, L501.5200 ####[facility] [address] [place], [address] GAP 14 Normal 5-15 [facility] Comment on above: Performed By: #### L 500.4050, L100.0100, L501.2300, L501.5200 ####[facility] [address] [place], [address] GFR/1.73 sq M.predicted among non-blacks MDRD (S/P/Bld) [Vol rate/Area] 74 mL/min/{1.73_m2} Normal >60 [facility] Comment on above: Result Comment: mL/m in/1.73m2 CKD-EPI Creatinine Equation (2020) Performed By: #### L 500.4050, L100.0100, L501.2300, L501.5200 ####[facility] [address] [place], [address] Globulin (S) [Mass/Vol] 3.0 g/dL Normal 2.2-4.2 [facility] Comment on above: Performed By: #### L 500.4050, L100.0100, L501.2300, L501.5200 ####[facility] [address] [place], [address] Glucose [Mass/Vol] 143 mg/dL High 70-99 [facility] Comment on above: Performed By: #### L 500.4050, L100.0100, L501.2300, L501.5200 ####[facility] [address] [place], [address] Potassium [Moles/Vol] 3.5 mmol/L Normal 3.3-5.1 [facility] Comment on above: Performed By: #### L 500.4050, L100.0100, L501.2300, L501.5200 ####[facility] [address] [place], [address] Sodium [Moles/Vol] 142 mmol/L Normal 133-145 [facility] Comment on above: Performed By: #### L 500.4050, L100.0100, L501.2300, L501.5200 ####[facility] [address] [place], [address] T PROT 6.5 g/dL Normal 5.9-8.4 [facility] Comment on above: Performed By: #### L 500.4050, L100.0100, L501.2300, L501.5200 ####[facility] [address] [place], [address] Urea nitrogen [Mass/Vol] 10 mg/dL Normal 4-19 [facility] Comment on above: Performed By: #### L 500.4050, L100.0100, L501.2300, L501.5200 ####[facility] [address] [place], [address] Eosinophil percentageOrdered By: Sherice Fernandez on 04-27-2025 Eosinophils/100 WBC (Bld) 0.8 % 0-5 [facility] Erythrocyte distribution wid th ratioOrdered By: Sherice Fernandez on 04-27-2025 Erythrocyte distribution width (RBC) [Ratio] 17.0 % High 11.6-14.6 [facility] Erythrocyte distribution wid th standard deviationOrdered By: Sherice Fernandez on 04-27-2025 Erythrocyte distribution width (RBC) [Ratio] 62.2 fl High 35.1-43.9 [facility] Glomerular filtration rate ( GFR) estimation/1.73 sq m using serum, plasma, or whole bOrdered By: Sherice Fernandez on 04-27-2025 GFR/1.73 sq M.predicted among non-blacks MDRD (S/P/Bld) [Vol rate/Area] 74 mL/min/{1.73_m2} >60 [facility] Comment on above: mL/min/1.73m2 CKD-EP I Creatinine Equation (2020) Hematocrit Auto (Bld) [Volum e fraction]Ordered By: Sherice Fernandez on 04-27-2025 Hematocrit (Bld) [Volume fraction] 31.7 % Low 37-47 [facility] Hemoglobin measurementOrdere d By: Sherice Fernandez on 04-27-2025 Hemoglobin (Bld) [Mass/Vol] 10.4 g/dL Low 12.0-15.0 [facility] Immature granulocytes/100 WB C Auto (Bld)Ordered By: Sherice Fernandez on 04-27-2025 Immature granulocytes/100 WBC (Bld) 0.500 % 0.0-0.9 [facility] Comment on above: IG% - Immature Granu locytes (promyelocytes, myelocytes and metamyelocytes) > 1% indicates that a LEFT SHIFT is Present. Laboratory - Chemistry and C hemistry - challengeOrdered By: Sherice Fernandez on 04-27-2025 AST [Catalytic activity/Vol] 322 U/L High <32 [facility] MCV (mean corpuscular volume ) determinationOrdered By: Sherice Fernandez on 04-27-2025 MCV (RBC) [Entitic vol] 100.3 fL High 81-99 [facility] Magnesiumon 04-27-2025 Magnesium [Mass/Vol] 1.3 mg/dL Low 1.5-2.2 [facility] Comment on above: Performed By: #### L 500.4050, L100.0100, L501.2300, L501.5200 ####[facility] [address] [place], [address] Magnesium measurement (mass/ volume)Ordered By: Sherice Fernandez on 04-27-2025 Magnesium (Unsp spec) [Mass/Vol] 1.3 mg/dL Low 1.5-2.2 [facility] Mean corpuscular hemoglobin (MCH) determinationOrdered By: Sherice Fernandez on 04-27-2025 MCH (RBC) [Entitic mass] 32.9 pg High 27.0-32.0 [facility] Mean corpuscular hemoglobin concentration (MCHC) determinationOrdered By: Sherice Fernandez on 04-27-2025 MCHC (RBC) [Mass/Vol] 32.8 g/dL 32-36 [facility] Mean platelet volume determi nationOrdered By: [facility] Jim on 04-27-2025 Platelet mean volume (Bld) [Entitic vol] 11.4 fL 6.2-12.0 [facility] Monocyte percentageOrdered B y: Sherice Fernandez on 04-27-2025 Monocytes/100 WBC (Bld) 9.7 % 0-10 [facility] Neutrophil percentageOrdered By: [facility] Jim on 04-27-2025 Neutrophils/100 WBC (Bld) 80.1 % High 47-70 [facility] Nucleated red blood cell per centageOrdered By: [facility] 04-27-2025 Nucleated RBC/100 WBC (Bld) [Ratio] 0 % 0-5 [facility] Oncology Visit Reporton 04-17 Oncology Visit Report Normal [facility] Phosphoruson 04-27-2025 Phosphate [Mass/Vol] 2.8 mg/dL Normal 2.7-4.5 [facility] Comment on above: Performed By: #### L 500.4050, L100.0100, L501.2300, L501.5200 ####[facility] [address] [place], [address] Platelet countOrdered By: Melva Fernandez on 04-27-2025 Platelets (Bld) [#/Vol] 142 10*3/uL Low 150-450 [facility] Potassium measurement (mass/ volume)Ordered By: Sherice Fernandez on 04-27-2025 Potassium (Unsp spec) [Mass/Vol] 3.5 mmol/L 3.3-5.1 [facility] RBC Auto (Bld) [#/Vol]Ordere d By: Sherice Fernandez on 04-27-2025 RBC (Bld) [#/Vol] 3.16 10*6/uL Low 4.2-5.4 [facility] Serum creatinine measurement (mass/volume)Ordered By: Sherice Fernandez on 04-27-2025 Creatinine [Mass/Vol] 0.85 mg/dL 0.70-1.20 [facility] Serum globulin measurementOr dered By: Sherice Fernandez on 04-27-2025 Globulin (S) [Mass/Vol] 3.0 g/dL 2.2-4.2 [facility] Serum glucose measurement (m ass/volume)Ordered By: Sherice Fernandez on 04-27-2025 Glucose [Mass/Vol] 143 mg/dL High 70-99 [facility] Serum or plasma alanine encarnacion otransferase (ALT) measurementOrdered By: Sherice Fernandez on 04-27-2025 ALT [Catalytic activity/Vol] 41 U/L High <35 [facility] Serum or plasma albumin jayro urement (mass/volume)Ordered By: Sherice Fernandez on 04-27-2025 Albumin [Mass/Vol] 3.5 g/dL 3.4-4.8 [facility] Serum or plasma albumin/glob ulin mass ratioOrdered By: Sherice Fernandez on 04-27-2025 Albumin/Globulin [Mass ratio] 1.2 {ratio} 0.9-2.4 [facility] Serum or plasma alkaline lukas sphatase measurementOrdered By: Sherice Fernandez on 04-27-2025 ALP [Catalytic activity/Vol] 252 U/L High 35-104 [facility] Serum or plasma calcium jayro urement (mass/volume)Ordered By: Sherice Jim on 04-27-2025 Calcium [Mass/Vol] 11.8 mg/dL High 7.6-11.0 [facility] Serum or plasma urea nitroge n measurement (mass/volume)Ordered By: Sherice Jim on 04-27-2025 Urea nitrogen [Mass/Vol] 10 mg/dL 4-19 [facility] Sodium levelOrdered By: Carmella campbell Jim on 04-27-2025 Sodium [Moles/Vol] 142 mmol/L 133-145 [facility] Total proteinOrdered By: Nain canseco Jim on 04-27-2025 Protein [Mass/Vol] 6.5 g/dL 5.9-8.4 [facility] White blood cell (WBC) count Ordered By: Sherice Jim on 04-27-2025 WBC (Bld) [#/Vol] 6.1 10*3/uL 4.4-11.0 [facility] Abdomen/Pelvis W IV Cont ONL Yon 04-20-2025 Abdomen/Pelvis W IV Cont ONLY Normal [facility] Absolute lymphocyte countOrd ered By: George Fajardo on 04-20-2025 Lymphocytes Auto (Unsp spec) [#/Vol] 0.63 10*3/uL Low 0.83-4.51 [facility] Absolute neutrophil countOrd ered By: George Fajardo on 04-20-2025 Neutrophils (Bld) [#/Vol] 4.9 10*3/uL 2.0-7.7 [facility] Anion gap in Serum or Plasma Ordered By: George Fajardo on 04-20-2025 Anion gap [Moles/Vol] 13 mmol/L 5-15 [facility] Automated blood erythrocyte countOrdered By: George Fajardo on 04-20-2025 RBC (Bld) [#/Vol] 2.95 10*6/uL Low 4.2-5.4 [facility] Comment on above: Performed By: #### L 501.4270, L500.4050, L100.0100 ####[facility] [address] [place], [address] Automated blood hematocrit ( percentage)Ordered By: George Le on 04-20-2025 Hematocrit (Bld) [Volume fraction] 30.1 % Low 37-47 [facility] Comment on above: Performed By: #### L 501.2450, L500.4050, L100.0100 ####[facility] [address] [place], [address] Automated lymphocyte count a s percentage of total leukocytesOrdered By: George Fajardo on 04-20-2025 Lymphocytes/100 WBC Auto (Unsp spec) 9.8 % Low 19-41 [facility] BUN/creatinine ratioOrdered By: George Fajardo on 04-20-2025 Urea nitrogen/Creatinine [Mass ratio] 9.2 mg/mg Low 10-20 [facility] Basophil percentageOrdered B y: George Fajardo on 04-20-2025 Basophils/100 WBC (Bld) 0.8 % Normal 0-1 [facility] Comment on above: Performed By: #### L 501.2450, L500.4050, L100.0100 ####[facility] [address] [place], [address] Bilirubin, totalOrdered By: George Le on 04-20-2025 Bilirubin [Mass/Vol] 0.67 mg/dL Normal 0.00-1.30 [facility] Comment on above: Performed By: #### L 501.2450, L500.4050, L100.0100 ####[facility] [address] [place], [address] CBC W/Diff, Automatedon 080 Absolute Lymph 0.63 X10 3/uL Low 0.83-4.51 [facility] Comment on above: Performed By: #### L 501.2450, L500.4050, L100.0100 ####[facility] [address] [place], [address] Absolute Neut 4.9 X10 3/uL Normal 2.0-7.7 [facility] Comment on above: Performed By: #### L 501.2450, L500.4050, L100.0100 ####[facility] [address] [place], [address] IG% 0.800 Normal 0.0-0.9 [facility] Comment on above: Result Comment: IG% - Immature Granulocytes (promyelocytes, myelocytes andmetamyelocytes) > 1% indicates that a LEFT SHIFT is Present. Performed By: #### L 501.2450, L500.4050, L100.0100 ####[facility] [address] [place], [address] Lymphocytes/100 WBC (Bld) 9.8 % Low 19-41 [facility] Comment on above: Performed By: #### L 501.2450, L500.4050, L100.0100 ####[facility] [address] [place], [address] Nucleated RBC (Bld) [#/Vol] 0 10*3/uL Normal 0-5 [facility] Comment on above: Performed By: #### L 501.2450, L500.4050, L100.0100 ####[facility] [address] [place], [address] RDW SD 61.8 fl High 35.1-43.9 [facility] Comment on above: Performed By: #### L 501.2450, L500.4050, L100.0100 ####[facility] [address] [place], [address] Carbon dioxide, total [Moles /volume] in Central venous bloodOrdered By: George Fajardo on 04-20-2025 CO2 [Moles/Vol] 24.0 mmol/L Normal 21.0-32.0 [facility] Comment on above: Performed By: #### L 501.2450, L500.4050, L100.0100 ####[facility] [address] [place], [address] Chloride assayOrdered By: Augusto Fajardo on 04-20-2025 Chloride [Moles/Vol] 103 mmol/L Normal 98-108 [facility] Comment on above: Performed By: #### L 501.2450, L500.4050, L100.0100 ####[facility] [address] [place], [address] Comprehensive Metabolic Prof ilon 04-20-2025 ALK PHOS 224 U/L High 35-104 [facility] Comment on above: Performed By: #### L 501.2450, L500.4050, L100.0100 ####[facility] [address] [place], [address] BUN/CRE 9.2 RATIO Low 10-20 [facility] Comment on above: Performed By: #### L 501.2450, L500.4050, L100.0100 ####[facility] [address] [place], [address] ECRCL 39.78 ml/min Low 50-250 [facility] Comment on above: Performed By: #### L 501.2450, L500.4050, L100.0100 ####[facility] [address] [place], [address] GAP 13 Normal 5-15 [facility] Comment on above: Performed By: #### L 501.2450, L500.4050, L100.0100 ####[facility] [address] [place], [address] Potassium [Moles/Vol] 4.3 mmol/L Normal 3.3-5.1 [facility] Comment on above: Performed By: #### L 501.2450, L500.4050, L100.0100 ####[facility] [address] [place], [address] T PROT 6.6 g/dL Normal 5.9-8.4 [facility] Comment on above: Performed By: #### L 501.2450, L500.4050, L100.0100 ####[facility] [address] [place], [address] Comprehensive Metabolic Prof ilOrdered By: George Fajardo on 04-20-2025 AST [Catalytic activity/Vol] 220 U/L High <=31 [facility] Comment on above: Performed By: #### L 501.2450, L500.4050, L100.0100 ####[facility] [address] [place], [address] Emergency Department Summary on 04-20-2025 Emergency Department Summary Normal [facility] Eosinophil percentageOrdered By: George Fajardo on 04-20-2025 Eosinophils/100 WBC (Bld) 0.9 % Normal 0-5 [facility] Comment on above: Performed By: #### L 501.2450, L500.4050, L100.0100 ####[facility] [address] [place], [address] Erythrocyte distribution wid th ratioOrdered By: George Fajardo on 04-20-2025 Erythrocyte distribution width (RBC) [Ratio] 16.5 % High 11.6-14.6 [facility] Comment on above: Performed By: #### L 501.2450, L500.4050, L100.0100 ####[facility] [address] [place], [address] Erythrocyte distribution wid th standard deviationOrdered By: George Fajardo on 04-20-2025 Erythrocyte distribution width (RBC) [Ratio] 61.8 fl High 35.1-43.9 [facility] Glomerular filtration rate ( GFR) estimation/1.73 sq m using serum, plasma, or whole bOrdered By: George Fajardo on 04-20-2025 GFR/1.73 sq M.predicted among non-blacks MDRD (S/P/Bld) [Vol rate/Area] 50 mL/min/{1.73_m2} Low >60 [facility] Comment on above: mL/min/1.73m2 CKD-EP I Creatinine Equation (2020) Result Comment: mL/m in/1.73m2 CKD-EPI Creatinine Equation (2020) Performed By: #### L 501.2450, L500.4050, L100.0100 ####[facility] [address] [place], [address] Hemoglobin measurementOrdere d By: George Fajardo on 04-20-2025 Hemoglobin (Bld) [Mass/Vol] 9.7 g/dL Low 12.0-15.0 [facility] Comment on above: Performed By: #### L 501.2450, L500.4050, L100.0100 ####[facility] [address] [place], [address] Immature granulocytes/100 WB C Auto (Bld)Ordered By: George Fajardo on 04-20-2025 Immature granulocytes/100 WBC (Bld) 0.800 % 0.0-0.9 [facility] Comment on above: IG% - Immature Granu locytes (promyelocytes, myelocytes and metamyelocytes) > 1% indicates that a LEFT SHIFT is Present. Lipase measurementOrdered By : George Fajardo on 04-20-2025 Lipase [Catalytic activity/Vol] 57 U/L Normal 13-75 [facility] Comment on above: Please note:LIPASE r evised reference range effective 22. New Lipase methodology. Expected to produce lower values than the previous assay method. NEW Reference Range: 13 - 75 U/L Result Comment: Elise brunson note:LIPASE revised reference range effective 22.New Lipase methodology. Expected to produce lower valuesthan the previous assay method.NEW Reference Range: 13 - 75 U/L Performed By: #### L 501.2450, L500.4050, L100.0100 ####[facility] [address] [place], [address] MCV (mean corpuscular volume ) determinationOrdered By: George Fajardo on 04-20-2025 MCV (RBC) [Entitic vol] 102.0 fL High 81-99 [facility] Comment on above: Performed By: #### L 501.2450, L500.4050, L100.0100 ####[facility] [address] [place], [address] Mean corpuscular hemoglobin (MCH) determinationOrdered By: George Fajardo on 04-20-2025 MCH (RBC) [Entitic mass] 32.9 pg High 27.0-32.0 [facility] Comment on above: Performed By: #### L 501.2450, L500.4050, L100.0100 ####[facility] [address] [place], [address] Mean corpuscular hemoglobin concentration (MCHC) determinationOrdered By: George Fajardo on 04-20-2025 MCHC (RBC) [Mass/Vol] 32.2 g/dL Normal 32-36 [facility] Comment on above: Performed By: #### L 501.2450, L500.4050, L100.0100 ####[facility] [address] [place], [address] Mean platelet volume determi nationOrdered By: George Fajardo on 04-20-2025 Platelet mean volume (Bld) [Entitic vol] 10.7 fL Normal 6.2-12.0 [facility] Comment on above: Performed By: #### L 501.2450, L500.4050, L100.0100 ####[facility] [address] [place], [address] Monocyte percentageOrdered B y: George Fajardo on 04-20-2025 Monocytes/100 WBC (Bld) 11.2 % High 0-10 [facility] Comment on above: Performed By: #### L 501.2450, L500.4050, L100.0100 ####[facility] [address] [place], [address] Neutrophil percentageOrdered By: George Fajardo on 04-20-2025 Neutrophils/100 WBC (Bld) 76.5 % High 47-70 [facility] Comment on above: Performed By: #### L 501.2450, L500.4050, L100.0100 ####[facility] [address] [place], [address] Nucleated red blood cell per centageOrdered By: George Fajardo on 04-20-2025 Nucleated RBC/100 WBC (Bld) [Ratio] 0 % 0-5 [facility] Platelet countOrdered By: Augusto Fajardo on 04-20-2025 Platelets (Bld) [#/Vol] 190 10*3/uL Normal 150-450 [facility] Comment on above: Performed By: #### L 501.2450, L500.4050, L100.0100 ####[facility] [address] [place], [address] Potassium measurement (mass/ volume)Ordered By: George Fajardo on 04-20-2025 Potassium (Unsp spec) [Mass/Vol] 4.3 mmol/L 3.3-5.1 [facility] Serum creatinine measurement (mass/volume)Ordered By: George Fajardo on 04-20-2025 Creatinine [Mass/Vol] 1.18 mg/dL Normal 0.70-1.20 [facility] Comment on above: Performed By: #### L 501.2450, L500.4050, L100.0100 ####[facility] [address] [place], [address] Serum globulin measurementOr dered By: George Fajardo on 04-20-2025 Globulin (S) [Mass/Vol] 3.0 g/dL Normal 2.2-4.2 [facility] Comment on above: Performed By: #### L 501.2450, L500.4050, L100.0100 ####[facility] [address] [place], [address] Serum glucose measurement (m ass/volume)Ordered By: George Fajardo on 04-20-2025 Glucose [Mass/Vol] 117 mg/dL High 70-99 [facility] Comment on above: Performed By: #### L 501.2450, L500.4050, L100.0100 ####[facility] [address] [place], [address] Serum or plasma alanine encarnacion otransferase (ALT) measurementOrdered By: George Fajardo on 04-20-2025 ALT [Catalytic activity/Vol] 34 U/L Normal <=34 [facility] Comment on above: Performed By: #### L 501.2450, L500.4050, L100.0100 ####[facility] [address] [place], [address] Serum or plasma albumin jayro urement (mass/volume)Ordered By: George Fajardo on 04-20-2025 Albumin [Mass/Vol] 3.6 g/dL Normal 3.4-4.8 [facility] Comment on above: Performed By: #### L 501.2450, L500.4050, L100.0100 ####[facility] [address] [place], [address] Serum or plasma albumin/glob ulin mass ratioOrdered By: George Fajardo on 04-20-2025 Albumin/Globulin [Mass ratio] 1.2 {ratio} Normal 0.9-2.4 [facility] Comment on above: Performed By: #### L 501.2450, L500.4050, L100.0100 ####[facility] [address] [place], [address] Serum or plasma alkaline lukas sphatase measurementOrdered By: George Fajardo on 04-20-2025 ALP [Catalytic activity/Vol] 224 U/L High 35-104 [facility] Serum or plasma calcium jayro urement (mass/volume)Ordered By: George Fajardo on 04-20-2025 Calcium [Mass/Vol] 11.3 mg/dL High 7.6-11.0 [facility] Comment on above: Performed By: #### L 501.2450, L500.4050, L100.0100 ####[facility] [address] [place], [address] Serum or plasma urea nitroge n measurement (mass/volume)Ordered By: George Fajardo on 04-20-2025 Urea nitrogen [Mass/Vol] 11 mg/dL Normal 4-19 [facility] Comment on above: Performed By: #### L 501.2450, L500.4050, L100.0100 ####[facility] [address] [place], [address] Sodium levelOrdered By: George Fajardo on 04-20-2025 Sodium [Moles/Vol] 141 mmol/L Normal 133-145 [facility] Comment on above: Performed By: #### L 501.2450, L500.4050, L100.0100 ####[facility] [address] [place], [address] Total proteinOrdered By: Gurdeep Fajardo on 04-20-2025 Protein [Mass/Vol] 6.6 g/dL 5.9-8.4 [facility] White blood cell (WBC) count Ordered By: George Fajardo on 04-20-2025 WBC (Bld) [#/Vol] 6.5 10*3/uL Normal 4.4-11.0 [facility] Comment on above: Performed By: #### L 501.2450, L500.4050, L100.0100 ####[facility] [address] [place], [address] Radiation Oncology Visiton 0 04-13-2025 Radiation Oncology Visit Normal [facility] Absolute lymphocyte countOrd ered By: Sherice Fernandez on 04-06-2025 Lymphocytes Auto (Unsp spec) [#/Vol] 0.44 10*3/uL Low 0.83-4.51 [facility] Absolute neutrophil countOrd ered By: [facility] on 04-06-2025 Neutrophils (Bld) [#/Vol] 2.4 10*3/uL 2.0-7.7 [facility] Anion gap in Serum or Plasma Ordered By: [facility] on 04-06-2025 Anion gap [Moles/Vol] 12 mmol/L 5-15 [facility] Automated lymphocyte count a s percentage of total leukocytesOrdered By: [facility] on 04-06-2025 Lymphocytes/100 WBC Auto (Unsp spec) 11.3 % Low 19-41 [facility] BUN/creatinine ratioOrdered By: [facility] Jim on 04-06-2025 Urea nitrogen/Creatinine [Mass ratio] 5.6 mg/mg Low 10-20 [facility] Basophil percentageOrdered B y: [facility] on 04-06-2025 Basophils/100 WBC (Bld) 0.8 % 0-1 [facility] Bilirubin, totalOrdered By: [facility] on 04-06-2025 Bilirubin [Mass/Vol] 0.26 mg/dL 0.00-1.30 [facility] CBC W/Diff, Automatedon 03-18 Absolute Neut Normal 2.0-7.7 [facility] Comment on above: Result Comment: DUPL ICATE ORDER Performed By: #### L 500.4050, L100.0100 ####[facility] [address] [place], [address] HCT Normal 37-47 [facility] Comment on above: Result Comment: DUPL ICATE ORDER Performed By: #### L 500.4050, L100.0100 ####[facility] [address] [place], [address] HGB Normal 12.0-15.0 [facility] Comment on above: Result Comment: DUPL ICATE ORDER Performed By: #### L 500.4050, L100.0100 ####[facility] [address] [place], [address] MCH Normal 27.0-32.0 [facility] Comment on above: Result Comment: DUPL ICATE ORDER Performed By: #### L 500.4050, L100.0100 ####[facility] [address] [place], [address] MCHC Normal 32-36 [facility] Comment on above: Result Comment: DUPL ICATE ORDER Performed By: #### L 500.4050, L100.0100 ####[facility] [address] [place], [address] MCV Normal 81-99 [facility] Comment on above: Result Comment: DUPL ICATE ORDER Performed By: #### L 500.4050, L100.0100 ####[facility] [address] [place], [address] NEUT% Normal 47-70 [facility] Comment on above: Result Comment: DUPL ICATE ORDER Performed By: #### L 500.4050, L100.0100 ####[facility] [address] [place], [address] PLT Normal 150-450 [facility] Comment on above: Result Comment: DUPL ICATE ORDER Performed By: #### L 500.4050, L100.0100 ####[facility] [address] [place], [address] RBC Normal 4.2-5.4 [facility] Comment on above: Result Comment: DUPL ICATE ORDER Performed By: #### L 500.4050, L100.0100 ####[facility] [address] [place], [address] RDW CV Normal 11.6-14.6 [facility] Comment on above: Result Comment: DUPL ICATE ORDER Performed By: #### L 500.4050, L100.0100 ####[facility] [address] [place], [address] RDW SD Normal 35.1-43.9 [facility] Comment on above: Result Comment: DUPL ICATE ORDER Performed By: #### L 500.4050, L100.0100 ####[facility] [address] [place], [address] WBC Normal 4.4-11.0 [facility] Comment on above: Result Comment: DUPL ICATE ORDER Performed By: #### L 500.4050, L100.0100 ####[facility] [address] [place], [address] Absolute Lymph 0.44 X10 3/uL Low 0.83-4.51 [facility] Comment on above: Performed By: #### L 501.5200, L501.2300, L100.0100, L500.4050 ####[facility] [address] [place], [address] Absolute Neut 2.4 X10 3/uL Normal 2.0-7.7 [facility] Comment on above: Performed By: #### L 501.5200, L501.2300, L100.0100, L500.4050 ####[facility] [address] [place], [address] Basophils/100 WBC (Bld) 0.8 % Normal 0-1 [facility] Comment on above: Performed By: #### L 501.5200, L501.2300, L100.0100, L500.4050 ####[facility] [address] [place], [address] Eosinophils/100 WBC (Bld) 0.5 % Normal 0-5 [facility] Comment on above: Performed By: #### L 501.5200, L501.2300, L100.0100, L500.4050 ####[facility] [address] [place], [address] Erythrocyte distribution width (RBC) [Ratio] 17.2 % High 11.6-14.6 [facility] Comment on above: Performed By: #### L 501.5200, L501.2300, L100.0100, L500.4050 ####[facility] [address] [place], [address] Hematocrit (Bld) [Volume fraction] 25.5 % Low 37-47 [facility] Comment on above: Performed By: #### L 501.5200, L501.2300, L100.0100, L500.4050 ####[facility] [address] [place], [address] Hemoglobin (Bld) [Mass/Vol] 8.3 g/dL Low 12.0-15.0 [facility] Comment on above: Performed By: #### L 501.5200, L501.2300, L100.0100, L500.4050 ####[facility] [address] [place], [address] IG% 0.800 Normal 0.0-0.9 [facility] Comment on above: Result Comment: IG% - Immature Granulocytes (promyelocytes, myelocytes andmetamyelocytes) > 1% indicates that a LEFT SHIFT is Present. Performed By: #### L 501.5200, L501.2300, L100.0100, L500.4050 ####[facility] [address] [place], [address] Lymphocytes/100 WBC (Bld) 11.3 % Low 19-41 [facility] Comment on above: Performed By: #### L 501.5200, L501.2300, L100.0100, L500.4050 ####[facility] [address] [place], [address] MCH (RBC) [Entitic mass] 33.3 pg High 27.0-32.0 [facility] Comment on above: Performed By: #### L 501.5200, L501.2300, L100.0100, L500.4050 ####[facility] [address] [place], [address] MCHC (RBC) [Mass/Vol] 32.5 g/dL Normal 32-36 [facility] Comment on above: Performed By: #### L 501.5200, L501.2300, L100.0100, L500.4050 ####[facility] [address] [place], [address] MCV (RBC) [Entitic vol] 102.4 fL High 81-99 [facility] Comment on above: Performed By: #### L 501.5200, L501.2300, L100.0100, L500.4050 ####[facility] [address] [place], [address] Monocytes/100 WBC (Bld) 24.2 % High 0-10 [facility] Comment on above: Performed By: #### L 501.5200, L501.2300, L100.0100, L500.4050 ####[facility] [address] [place], [address] Neutrophils/100 WBC (Bld) 62.4 % Normal 47-70 [facility] Comment on above: Performed By: #### L 501.5200, L501.2300, L100.0100, L500.4050 ####[facility] [address] [place], [address] Nucleated RBC (Bld) [#/Vol] 0 10*3/uL Normal 0-5 [facility] Comment on above: Performed By: #### L 501.5200, L501.2300, L100.0100, L500.4050 ####[facility] [facility] [address] [place], [address] Platelet mean volume (Bld) [Entitic vol] 10.3 fL Normal 6.2-12.0 [facility] Comment on above: Performed By: #### L 501.5200, L501.2300, L100.0100, L500.4050 ####[facility] [address] [place], [address] Platelets (Bld) [#/Vol] 132 10*3/uL Low 150-450 [facility] Comment on above: Performed By: #### L 501.5200, L501.2300, L100.0100, L500.4050 ####[facility] [address] [place], [address] RBC (Bld) [#/Vol] 2.49 10*6/uL Low 4.2-5.4 [facility] Comment on above: Performed By: #### L 501.5200, L501.2300, L100.0100, L500.4050 ####[facility] [address] [place], [address] RDW SD 63.7 fl High 35.1-43.9 [facility] Comment on above: Performed By: #### L 501.5200, L501.2300, L100.0100, L500.4050 ####[facility] [address] [place], [address] WBC (Bld) [#/Vol] 3.9 10*3/uL Low 4.4-11.0 [facility] Comment on above: Performed By: #### L 501.5200, L501.2300, L100.0100, L500.4050 ####[facility] [address] [place], [address] Carbon dioxide, total [Moles /volume] in Central venous bloodOrdered By: Sherice Fernandez on 07-21-2025 CO2 [Moles/Vol] 24.3 mmol/L 21.0-32.0 [facility] Chloride assayOrdered By: Melva Fernandez on 04-06-2025 Chloride [Moles/Vol] 107 mmol/L 98-108 [facility] Comprehensive Metabolic Prof ilon 04-06-2025 Albumin [Mass/Vol] 3.8 g/dL Normal 3.4-4.8 [facility] Comment on above: Performed By: #### L 501.5200, L501.2300, L100.0100, L500.4050 ####[facility] [address] [place], [address] Albumin/Globulin [Mass ratio] 1.4 {ratio} Normal 0.9-2.4 [facility] Comment on above: Performed By: #### L 501.5200, L501.2300, L100.0100, L500.4050 ####[facility] [address] [place], [address] ALK PHOS 163 U/L High 35-104 [facility] Comment on above: Performed By: #### L 501.5200, L501.2300, L100.0100, L500.4050 ####[facility] [address] [place], [address] ALT [Catalytic activity/Vol] 24 U/L Normal <=34 [facility] Comment on above: Performed By: #### L 501.5200, L501.2300, L100.0100, L500.4050 ####[facility] [address] [place], [address] AST [Catalytic activity/Vol] 100 U/L High <=31 [facility] Comment on above: Performed By: #### L 501.5200, L501.2300, L100.0100, L500.4050 ####[facility] [address] [place], [address] Bilirubin [Mass/Vol] 0.26 mg/dL Normal 0.00-1.30 [facility] Comment on above: Performed By: #### L 501.5200, L501.2300, L100.0100, L500.4050 ####[facility] [address] [place], [address] BUN/CRE 5.6 RATIO Low 10-20 [facility] Comment on above: Performed By: #### L 501.5200, L501.2300, L100.0100, L500.4050 ####[facility] [address] [place], [address] Calcium [Mass/Vol] 9.7 mg/dL Normal 7.6-11.0 [facility] Comment on above: Performed By: #### L 501.5200, L501.2300, L100.0100, L500.4050 ####[facility] [address] [place], [address] Chloride [Moles/Vol] 107 mmol/L Normal 98-108 [facility] Comment on above: Performed By: #### L 501.5200, L501.2300, L100.0100, L500.4050 ####[facility] [address] [place], [address] CO2 [Moles/Vol] 24.3 mmol/L Normal 21.0-32.0 [facility] Comment on above: Performed By: #### L 501.5200, L501.2300, L100.0100, L500.4050 ####[facility] [address] [place], [address] Creatinine [Mass/Vol] 0.88 mg/dL Normal 0.70-1.20 [facility] Comment on above: Performed By: #### L 501.5200, L501.2300, L100.0100, L500.4050 ####[facility] [address] [place], [address] ECRCL 53.57 ml/min Normal 50-250 [facility] Comment on above: Performed By: #### L 501.5200, L501.2300, L100.0100, L500.4050 ####[facility] [address] [place], [address] GAP 12 Normal 5-15 [facility] Comment on above: Performed By: #### L 501.5200, L501.2300, L100.0100, L500.4050 ####[facility] [address] [place], [address] GFR/1.73 sq M.predicted among non-blacks MDRD (S/P/Bld) [Vol rate/Area] 71 mL/min/{1.73_m2} Normal >60 [facility] Comment on above: Result Comment: mL/m in/1.73m2 CKD-EPI Creatinine Equation (2020) Performed By: #### L 501.5200, L501.2300, L100.0100, L500.4050 ####[facility] [address] [place], [address] Globulin (S) [Mass/Vol] 2.7 g/dL Normal 2.2-4.2 [facility] Comment on above: Performed By: #### L 501.5200, L501.2300, L100.0100, L500.4050 ####[facility] [address] [place], [address] Glucose [Mass/Vol] 135 mg/dL High 70-99 [facility] Comment on above: Performed By: #### L 501.5200, L501.2300, L100.0100, L500.4050 ####[facility] [address] [place], [address] Potassium [Moles/Vol] 3.3 mmol/L Normal 3.3-5.1 [facility] Comment on above: Performed By: #### L 501.5200, L501.2300, L100.0100, L500.4050 ####[facility] [address] [place], [address] Sodium [Moles/Vol] 143 mmol/L Normal 133-145 [facility] Comment on above: Performed By: #### L 501.5200, L501.2300, L100.0100, L500.4050 ####[facility] [address] [place], [address] T PROT 6.5 g/dL Normal 5.9-8.4 [facility] Comment on above: Performed By: #### L 501.5200, L501.2300, L100.0100, L500.4050 ####[facility] [address] [place], [address] Urea nitrogen [Mass/Vol] 5 mg/dL Normal 4-19 [facility] Comment on above: Performed By: #### L 501.5200, L501.2300, L100.0100, L500.4050 ####[facility] [address] [place], [address] ALB Normal 3.4-4.8 [facility] Comment on above: Result Comment: DUPL ICATE ORDER Performed By: #### L 500.4050, L100.0100 ####[facility] [address] [place], [address] ALK PHOS Normal 35-104 [facility] Comment on above: Result Comment: DUPL ICATE ORDER Performed By: #### L 500.4050, L100.0100 ####[facility] [address] [place], [address] ALT Normal <=34 [facility] Comment on above: Result Comment: DUPL ICATE ORDER Performed By: #### L 500.4050, L100.0100 ####[facility] [address] [place], [address] AST Normal <=31 [facility] Comment on above: Result Comment: DUPL ICATE ORDER Performed By: #### L 500.4050, L100.0100 ####[facility] [address] [place], [address] BUN Normal 4-19 [facility] Comment on above: Result Comment: DUPL ICATE ORDER Performed By: #### L 500.4050, L100.0100 ####[facility] [address] [place], [address] BUN/CRE Normal 10-20 [facility] Comment on above: Result Comment: DUPL ICATE ORDER Performed By: #### L 500.4050, L100.0100 ####[facility] [address] [place], [address] Calcium Normal 7.6-11.0 [facility] Comment on above: Result Comment: DUPL ICATE ORDER Performed By: #### L 500.4050, L100.0100 ####[facility] [address] [place], [address] CL Normal 98-108 [facility] Comment on above: Result Comment: DUPL ICATE ORDER Performed By: #### L 500.4050, L100.0100 ####[facility] [address] [place], [address] CO2 Normal 21.0-32.0 [facility] Comment on above: Result Comment: DUPL ICATE ORDER Performed By: #### L 500.4050, L100.0100 ####[facility] [address] [place], [address] CREAT,SERUM Normal 0.70-1.20 [facility] Comment on above: Result Comment: DUPL ICATE ORDER Performed By: #### L 500.4050, L100.0100 ####[facility] [address] [place], [address] eGFR Normal >60 [facility] Comment on above: Result Comment: DUPL ICATE ORDER Performed By: #### L 500.4050, L100.0100 ####[facility] [address] [place], [address] GAP Normal 5-15 [facility] Comment on above: Result Comment: DUPL ICATE ORDER Performed By: #### L 500.4050, L100.0100 ####[facility] [address] [place], [address] GLU Normal 70-99 [facility] Comment on above: Result Comment: DUPL ICATE ORDER Performed By: #### L 500.4050, L100.0100 ####[facility] [address] [place], [address] Potassium Normal 3.3-5.1 [facility] Comment on above: Result Comment: DUPL ICATE ORDER Performed By: #### L 500.4050, L100.0100 ####[facility] [address] [place], [address] T BILI Normal 0.00-1.30 [facility] Comment on above: Result Comment: DUPL ICATE ORDER Performed By: #### L 500.4050, L100.0100 ####[facility] [address] [place], [address] T PROT Normal 5.9-8.4 [facility] Comment on above: Result Comment: DUPL ICATE ORDER Performed By: #### L 500.4050, L100.0100 ####[facility] [address] [place], [address] Comprehensive Metabolic Profil Normal 133-145 [facility] Comment on above: Result Comment: DUPL ICATE ORDER Performed By: #### L 500.4050, L100.0100 ####[facility] [address] [place], [address] Eosinophil percentageOrdered By: Sherice Fernandez on 04-06-2025 Eosinophils/100 WBC (Bld) 0.5 % 0-5 [facility] Erythrocyte distribution wid th ratioOrdered By: Sherice Fernandez on 04-06-2025 Erythrocyte distribution width (RBC) [Ratio] 17.2 % High 11.6-14.6 [facility] Erythrocyte distribution wid th standard deviationOrdered By: Sherice Fernandez on 04-06-2025 Erythrocyte distribution width (RBC) [Ratio] 63.7 fl High 35.1-43.9 [facility] Ferritinon 04-06-2025 Ferritin [Mass/Vol] 827 ng/mL High 22-378 [facility] Comment on above: Performed By: #### L 504.2610, L501.9520, L503.6550, L503.6030, L100.9950 ####[facility] [address] [place], [address] Glomerular filtration rate ( GFR) estimation/1.73 sq m using serum, plasma, or whole bOrdered By: Sherice Fernandez on 04-06-2025 GFR/1.73 sq M.predicted among non-blacks MDRD (S/P/Bld) [Vol rate/Area] 71 mL/min/{1.73_m2} >60 [facility] Comment on above: mL/min/1.73m2 CKD-EP I Creatinine Equation (2020) Hematocrit Auto (Bld) [Volum e fraction]Ordered By: Sherice Fernandez on 04-06-2025 Hematocrit (Bld) [Volume fraction] 25.5 % Low 37-47 [facility] Hemoglobin measurementOrdere d By: Sherice Feranndez on 04-06-2025 Hemoglobin (Bld) [Mass/Vol] 8.3 g/dL Low 12.0-15.0 [facility] Immature granulocytes/100 WB C Auto (Bld)Ordered By: Sherice Fernandez on 04-06-2025 Immature granulocytes/100 WBC (Bld) 0.800 % 0.0-0.9 [facility] Comment on above: IG% - Immature Granu locytes (promyelocytes, myelocytes and metamyelocytes) > 1% indicates that a LEFT SHIFT is Present. Iron measurement (mass/mass) Ordered By: Sharda Bronson on 04-06-2025 Iron (Unsp spec) [Mass/Mass] 43 ug/dL Low 50-170 [facility] Iron+Iron Binding Capacityon 04-06-2025 TIBC 235 ug/dL Low 250-450 [facility] Comment on above: Performed By: #### L 504.2610, L501.9520, L503.6550, L503.6030, L100.9950 ####[facility] [address] [place], [place], [id number] LDHon 04-06-2025 LDH 829 U/L High 84-246 [facility] Comment on above: Order Comment: 1 Performed By: #### L 504.2610, L501.9520, L503.6550, L503.6030, L100.9950 ####[facility] [address] [place], [place], [id number] Laboratory - Chemistry and C hemistry - challengeOrdered By: Sherice Fernandez on 04-06-2025 AST [Catalytic activity/Vol] 100 U/L High <32 [facility] Lactate dehydrogenase (LDH) measurementOrdered By: Sharda Bronson on 04-06-2025 LDH [Catalytic activity/Vol] 829 U/L High 84-246 [facility] MCV (mean corpuscular volume ) determinationOrdered By: Sherice Fernandez on 04-06-2025 MCV (RBC) [Entitic vol] 102.4 fL High 81-99 [facility] Magnesiumon 04-06-2025 Magnesium [Mass/Vol] 1.3 mg/dL Low 1.5-2.2 [facility] Comment on above: Performed By: #### L 501.5200, L501.2300, L100.0100, L500.4050 ####[facility] [address] [place], [place], [id number] Magnesium measurement (mass/ volume)Ordered By: Sherice Feranndez on 04-06-2025 Magnesium (Unsp spec) [Mass/Vol] 1.3 mg/dL Low 1.5-2.2 [facility] Magnetic resonance imaging r eportOrdered By: Diaz Salazar on 04-06-2025 Study report [facility] Imaging Services [address] [place] [address] Spine Lumbar W/WO Contrast MR#: [id number] Acct: [id number] Name: BETSY RODRIGEZ Rep #: [id number] 21 : 1955 F 69 From: Martell Salazar MD PCP: Dr. Fabricio Lemos MD Status: REG CLI Study:Spine Lumbar W/WO Contrast Date of Exa m: 04/06/25 Exam# [id number] Ordering Dr: Sharda Medrano INSULATION BLOWER INSULATION BLOWER-C PROCEDURE: SPINE LUMBAR W/WO CONTRAST 04/06/2025 REASON FOR EXAM: LEFT HIP PAIN, LLE WEAKNESS; SCLC MET TO BONE TECHNIQUE: SPINE LUMBAR W/WO CONTRAST Multiplanar and multisequence images were obtained without and with intravenous gadolinium-based contrast administration. CONTRAST: Clariscan VOLUME: 13 mL COMPARISON: Lumbar spine CT 04/05/2025. FINDINGS: 5 otw-dip-isqvhyj lumbar-type vertebrae are preserved in height, with [...] broad-based dorsal annular disc bulge, combined with twzh-lgpupui-pqac-ri ght ligamentum flavum and facet hypertrophy, results [...] mild at the remaining levels. Reading Location: [id number] CC: SUZI Bronson; Dr. Fabricio Lemos MD ~ [employer]: Signed [facility] Mean corpuscular hemoglobin (MCH) determinationOrdered By: Sherice Fernandez on 04-06-2025 MCH (RBC) [Entitic mass] 33.3 pg High 27.0-32.0 [facility] Mean corpuscular hemoglobin concentration (MCHC) determinationOrdered By: Sherice Fernandez on 04-06-2025 MCHC (RBC) [Mass/Vol] 32.5 g/dL 32-36 [facility] Mean platelet volume determi nationOrdered By: Sherice Fernandez on 04-06-2025 Platelet mean volume (Bld) [Entitic vol] 10.3 fL 6.2-12.0 [facility] Monocyte percentageOrdered B y: Sherice Fernandez on 04-06-2025 Monocytes/100 WBC (Bld) 24.2 % High 0-10 [facility] Neutrophil percentageOrdered By: Sherice Fernandez on 04-06-2025 Neutrophils/100 WBC (Bld) 62.4 % 47-70 [facility] No Panel InformationOrdered By: Sharda Bronson on 04-06-2025 Unsaturated Iron Binding Capacity 192 ug/dL Low 228-428 [facility] Nucleated red blood cell per centageOrdered By: Sherice Fernandez on 04-06-2025 Nucleated RBC/100 WBC (Bld) [Ratio] 0 % 0-5 [facility] Oncology Visit Reporton 03-18 Oncology Visit Report Normal [facility] Phosphoruson 04-06-2025 Phosphate [Mass/Vol] 3.1 mg/dL Normal 2.7-4.5 [facility] Comment on above: Performed By: #### L 501.5200, L501.2300, L100.0100, L500.4050 ####[facility] [address] [place], [place], [id number] Platelet countOrdered By: Melva Fernandez on 04-06-2025 Platelets (Bld) [#/Vol] 132 10*3/uL Low 150-450 [facility] Potassium measurement (mass/ volume)Ordered By: Sherice Fernandez on 04-06-2025 Potassium (Unsp spec) [Mass/Vol] 3.3 mmol/L 3.3-5.1 [facility] RBC Auto (Bld) [#/Vol]Ordere d By: Sherice Fernandez on 04-06-2025 RBC (Bld) [#/Vol] 2.49 10*6/uL Low 4.2-5.4 [facility] Retic Panelon 04-06-2025 IM RET FRACTION 29.70 High 3.00-15.90 [facility] Comment on above: Order Comment: ADD O N Performed By: #### L 504.2610, L501.9520, L503.6550, L503.6030, L100.9950 ####[facility] [address] [place], [place], [id number] RET-HE 32.2 pg Normal 30-35 [facility] Comment on above: Order Comment: ADD O N Performed By: #### L 504.2610, L501.9520, L503.6550, L503.6030, L100.9950 ####[facility] [address] [place], [place], [id number] Retic Count 5.12 High 0.5-1.5 [facility] Comment on above: Order Comment: ADD O N Performed By: #### L 504.2610, L501.9520, L503.6550, L503.6030, L100.9950 ####[facility] [address] [place], [place], [address] Reticulocyte hemoglobin equi valent (RET-He) measurementOrdered By: Sharda Bronson on 04-06-2025 Hemoglobin (Reticulocytes) [Entitic mass] 32.2 pg 30-35 [facility] Reticulocytes Auto (Bld) [#/ Vol]Ordered By: Sharda Bronson on 04-06-2025 Reticulocytes/100 RBC (Bld) 5.12 % High 0.5-1.5 [facility] Serum creatinine measurement (mass/volume)Ordered By: Sherice Fernandez on 04-06-2025 Creatinine [Mass/Vol] 0.88 mg/dL 0.70-1.20 [facility] Serum globulin measurementOr dered By: Sherice Fernandez on 04-06-2025 Globulin (S) [Mass/Vol] 2.7 g/dL 2.2-4.2 [facility] Serum glucose measurement (m ass/volume)Ordered By: Sherice Fernandez on 04-06-2025 Glucose [Mass/Vol] 135 mg/dL High 70-99 [facility] Serum or plasma alanine encarnacion otransferase (ALT) measurementOrdered By: Sherice Fernandez on 04-06-2025 ALT [Catalytic activity/Vol] 24 U/L <35 [facility] Serum or plasma albumin jayro urement (mass/volume)Ordered By: Sherice Fernandez on 04-06-2025 Albumin [Mass/Vol] 3.8 g/dL 3.4-4.8 [facility] Serum or plasma albumin/glob ulin mass ratioOrdered By: Sherice Fernandez on 04-06-2025 Albumin/Globulin [Mass ratio] 1.4 {ratio} 0.9-2.4 [facility] Serum or plasma alkaline lukas sphatase measurementOrdered By: Sherice Fernandez on 04-06-2025 ALP [Catalytic activity/Vol] 163 U/L High 35-104 [facility] Serum or plasma calcium jayro urement (mass/volume)Ordered By: Sherice Fernandez on 04-06-2025 Calcium [Mass/Vol] 9.7 mg/dL 7.6-11.0 [facility] Serum or plasma ferritin caesar surement (mass/volume)Ordered By: Sharda Bronson on 04-06-2025 Ferritin [Mass/Vol] 827 ng/mL High 22-378 [facility] Serum or plasma iron saturat ion measurement (mass fraction)Ordered By: Sharda Bronson on 04-06-2025 Iron saturation [Mass fraction] 18.3 % 13-59 [facility] Comment on above: Previous reported re sult: 18.0 %Edited by: ALPHONSE on 04/06/25:1307 AMENDED REPORT 04/06/25 1307 IRON SATURATION previously reported as: 18.0 % Serum or plasma urea nitroge n measurement (mass/volume)Ordered By: Sherice Fernandez on 04-06-2025 Urea nitrogen [Mass/Vol] 5 mg/dL 4-19 [facility] Sodium levelOrdered By: Carmella Fernandez on 04-06-2025 Sodium [Moles/Vol] 143 mmol/L 133-145 [facility] Spine Lumbar W/WO Contraston 04-06-2025 Spine Lumbar W/WO Contrast Normal [facility] TSH DL <= 0.005 mIU/L QnOrde red By: Sharda Bronson on 04-06-2025 TSH Qn 2.410 uIU/mL 0.300-4.200 [facility] Thyroid Stim Hormone (TSH)on 04-06-2025 TSH 2.410 uIU/mL Normal 0.300-4.200 [facility] Comment on above: Performed By: #### L 504.2610, L501.9520, L503.6550, L503.6030, L100.9950 ####[facility] [address] [place], [address] Total proteinOrdered By: Nain Fernandez on 04-06-2025 Protein [Mass/Vol] 6.5 g/dL 5.9-8.4 [facility] White blood cell (WBC) count Ordered By: Sherice Jim on 04-06-2025 WBC (Bld) [#/Vol] 3.9 10*3/uL Low 4.4-11.0 [facility] Absolute lymphocyte countOrd ered By: Juan Lynch on 04-05-2025 Lymphocytes Auto (Unsp spec) [#/Vol] 0.63 10*3/uL Low 0.83-4.51 [facility] Absolute neutrophil countOrd ered By: Juan Lynch on 04-05-2025 Neutrophils (Bld) [#/Vol] 4.0 10*3/uL 2.0-7.7 [facility] Anion gap in Serum or Plasma Ordered By: Juan Cris on 04-05-2025 Anion gap [Moles/Vol] 14 mmol/L 5-15 [facility] Automated lymphocyte count a s percentage of total leukocytesOrdered By: Juan Cris on 04-05-2025 Lymphocytes/100 WBC Auto (Unsp spec) 11.0 % Low 19-41 [facility] BUN/creatinine ratioOrdered By: Juan Lynch on 04-05-2025 Urea nitrogen/Creatinine [Mass ratio] 6.2 mg/mg Low 10-20 [facility] Basic Metabolic Profile (BMP )on 04-05-2025 BUN/CRE 6.2 RATIO Low - [facility] Comment on above: Performed By: #### L 500.2500 ####[facility] [address] [place], [place], [id number] Calcium [Mass/Vol] 9.8 mg/dL Normal 7.6-11.0 [facility] Comment on above: Performed By: #### L 500.2500 ####[facility] [address] [place], [address] Chloride [Moles/Vol] 103 mmol/L Normal 98-108 [facility] Comment on above: Performed By: #### L 500.2500 ####[facility] [address] [place], [address] CO2 [Moles/Vol] 23.7 mmol/L Normal 21.0-32.0 [facility] Comment on above: Performed By: #### L 500.2500 ####[facility] [address] [place], [address] Creatinine [Mass/Vol] 0.91 mg/dL Normal 0.70-1.20 [facility] Comment on above: Performed By: #### L 500.2500 ####[facility] [address] [place], [address] ECRCL 51.80 ml/min Normal 50-250 [facility] Comment on above: Performed By: #### L 500.2500 ####[facility] [address] [place], [address] GAP 14 Normal 5-15 [facility] Comment on above: Performed By: #### L 500.2500 ####[facility] [address] [place], [address] GFR/1.73 sq M.predicted among non-blacks MDRD (S/P/Bld) [Vol rate/Area] 68 mL/min/{1.73_m2} Normal >60 [facility] Comment on above: Result Comment: mL/m in/1.73m2 CKD-EPI Creatinine Equation (2020) Performed By: #### L 500.2500 ####[facility] [address] [place], [address] Glucose [Mass/Vol] 127 mg/dL High 70-99 [facility] Comment on above: Performed By: #### L 500.2500 ####[facility] [address] [place], [address] Potassium [Moles/Vol] 3.3 mmol/L Normal 3.3-5.1 [facility] Comment on above: Performed By: #### L 500.2500 ####[facility] [address] [place], [address] Sodium [Moles/Vol] 140 mmol/L Normal 133-145 [facility] Comment on above: Performed By: #### L 500.2500 ####[facility] [address] [place], [address] Urea nitrogen [Mass/Vol] 6 mg/dL Normal 4-19 [facility] Comment on above: Performed By: #### L 500.2500 ####[facility] [address] [place], [address] Basophil percentageOrdered B y: Remus Ungur on 04-05-2025 Basophils/100 WBC (Bld) 0.5 % 0-1 [facility] CBC W/Diff, Automatedon -2 0-2024 Absolute Lymph 0.63 X10 3/uL Low 0.83-4.51 [facility] Comment on above: Performed By: #### L 100.0100 ####[facility] [address] [place], [address] Absolute Neut 4.0 X10 3/uL Normal 2.0-7.7 [facility] Comment on above: Performed By: #### L 100.0100 ####[facility] [address] [place], [address] Basophils/100 WBC (Bld) 0.5 % Normal 0-1 [facility] Comment on above: Performed By: #### L 100.0100 ####[facility] [address] [place], [address] Eosinophils/100 WBC (Bld) 0.5 % Normal 0-5 [facility] Comment on above: Performed By: #### L 100.0100 ####[facility] [address] [place], [address] Erythrocyte distribution width (RBC) [Ratio] 16.9 % High 11.6-14.6 [facility] Comment on above: Performed By: #### L 100.0100 ####[facility] [address] [place], [address] Hematocrit (Bld) [Volume fraction] 25.5 % Low 37-47 [facility] Comment on above: Performed By: #### L 100.0100 ####[facility] [address] [place], [address] Hemoglobin (Bld) [Mass/Vol] 8.6 g/dL Low 12.0-15.0 [facility] Comment on above: Performed By: #### L 100.0100 ####[facility] [address] [place], [address] IG% 0.700 Normal 0.0-0.9 [facility] Comment on above: Result Comment: IG% - Immature Granulocytes (promyelocytes, myelocytes andmetamyelocytes) > 1% indicates that a LEFT SHIFT is Present. Performed By: #### L 100.0100 ####[facility] [address] [place], [address] Lymphocytes/100 WBC (Bld) 11.0 % Low 19-41 [facility] Comment on above: Performed By: #### L 100.0100 ####[facility] [address] [place], [address] MCH (RBC) [Entitic mass] 33.1 pg High 27.0-32.0 [facility] Comment on above: Performed By: #### L 100.0100 ####[facility] [address] [place], [address] MCHC (RBC) [Mass/Vol] 33.7 g/dL Normal 32-36 [facility] Comment on above: Performed By: #### L 100.0100 ####[facility] [address] [place], [address] MCV (RBC) [Entitic vol] 98.1 fL Normal 81-99 [facility] Comment on above: Performed By: #### L 100.0100 ####[facility] [address] [place], [address] Monocytes/100 WBC (Bld) 18.4 % High 0-10 [facility] Comment on above: Performed By: #### L 100.0100 ####[facility] [address] [place], [address] Neutrophils/100 WBC (Bld) 68.9 % Normal 47-70 [facility] Comment on above: Performed By: #### L 100.0100 ####[facility] [address] [place], [address] Nucleated RBC (Bld) [#/Vol] 0 10*3/uL Normal 0-5 [facility] Comment on above: Performed By: #### L 100.0100 ####[facility] [address] [place], [address] Platelet mean volume (Bld) [Entitic vol] 11.2 fL Normal 6.2-12.0 [facility] Comment on above: Performed By: #### L 100.0100 ####[facility] [address] [place], [address] Platelets (Bld) [#/Vol] 134 10*3/uL Low 150-450 [facility] Comment on above: Performed By: #### L 100.0100 ####[facility] [address] [place], [address] RBC (Bld) [#/Vol] 2.60 10*6/uL Low 4.2-5.4 [facility] Comment on above: Performed By: #### L 100.0100 ####[facility] [address] [place], [address] RDW SD 59.0 fl High 35.1-43.9 [facility] Comment on above: Performed By: #### L 100.0100 ####[facility] [address] [place], [address] WBC (Bld) [#/Vol] 5.8 10*3/uL Normal 4.4-11.0 [facility] Comment on above: Performed By: #### L 100.0100 ####[facility] [address] [place], [address] Carbon dioxide, total [Moles /volume] in Central venous bloodOrdered By: Juan Lynch on 04-05-2025 CO2 [Moles/Vol] 23.7 mmol/L 21.0-32.0 [facility] Chloride assayOrdered By: Kimberly Lynch on 04-05-2025 Chloride [Moles/Vol] 103 mmol/L 98-108 [facility] Emergency Department Summary on 04-05-2025 Emergency Department Summary Normal [facility] Eosinophil percentageOrdered By: Juan Lynch on 04-05-2025 Eosinophils/100 WBC (Bld) 0.5 % 0-5 [facility] Erythrocyte distribution wid th ratioOrdered By: Juan Lynch on 04-05-2025 Erythrocyte distribution width (RBC) [Ratio] 16.9 % High 11.6-14.6 [facility] Erythrocyte distribution wid th standard deviationOrdered By: Juan Lynch on 04-05-2025 Erythrocyte distribution width (RBC) [Ratio] 59.0 fl High 35.1-43.9 [facility] Glomerular filtration rate ( GFR) estimation/1.73 sq m using serum, plasma, or whole bOrdered By: Juan Lynch on 04-05-2025 GFR/1.73 sq M.predicted among non-blacks MDRD (S/P/Bld) [Vol rate/Area] 68 mL/min/{1.73_m2} >60 [facility] Comment on above: mL/min/1.73m2 CKD-EP I Creatinine Equation (2020) Hematocrit Auto (Bld) [Volum e fraction]Ordered By: Juan Lynch on 04-05-2025 Hematocrit (Bld) [Volume fraction] 25.5 % Low 37-47 [facility] Hemoglobin measurementOrdere d By: Juan Lynch on 04-05-2025 Hemoglobin (Bld) [Mass/Vol] 8.6 g/dL Low 12.0-15.0 [facility] Immature granulocytes/100 WB C Auto (Bld)Ordered By: Juan Lynch on 04-05-2025 Immature granulocytes/100 WBC (Bld) 0.700 % 0.0-0.9 [facility] Comment on above: IG% - Immature Granu locytes (promyelocytes, myelocytes and metamyelocytes) > 1% indicates that a LEFT SHIFT is Present. MCV (mean corpuscular volume ) determinationOrdered By: Juan Lynch on 04-05-2025 MCV (RBC) [Entitic vol] 98.1 fL 81-99 [facility] Mean corpuscular hemoglobin (MCH) determinationOrdered By: Juan Lynch on 04-05-2025 MCH (RBC) [Entitic mass] 33.1 pg High 27.0-32.0 [facility] Mean corpuscular hemoglobin concentration (MCHC) determinationOrdered By: Juan Lynch on 04-05-2025 MCHC (RBC) [Mass/Vol] 33.7 g/dL 32-36 [facility] Mean platelet volume determi nationOrdered By: Juan Lynch on 04-05-2025 Platelet mean volume (Bld) [Entitic vol] 11.2 fL 6.2-12.0 [facility] Monocyte percentageOrdered B y: Remus Cris on 04-05-2025 Monocytes/100 WBC (Bld) 18.4 % High 0-10 [facility] Neutrophil percentageOrdered By: Juan Lynch on 04-05-2025 Neutrophils/100 WBC (Bld) 68.9 % 47-70 [facility] Nucleated red blood cell per centageOrdered By: Juan Lynch on 04-05-2025 Nucleated RBC/100 WBC (Bld) [Ratio] 0 % 0-5 [facility] Platelet countOrdered By: Kimberly Lynch on 04-05-2025 Platelets (Bld) [#/Vol] 134 10*3/uL Low 150-450 [facility] Potassium measurement (mass/ volume)Ordered By: Juan Lynch on 04-05-2025 Potassium (Unsp spec) [Mass/Vol] 3.3 mmol/L 3.3-5.1 [facility] RBC Auto (Bld) [#/Vol]Ordere d By: Juan Lynch on 04-05-2025 RBC (Bld) [#/Vol] 2.60 10*6/uL Low 4.2-5.4 [facility] Serum creatinine measurement (mass/volume)Ordered By: Juan Lynch on 04-05-2025 Creatinine [Mass/Vol] 0.91 mg/dL 0.70-1.20 [facility] Serum glucose measurement (m ass/volume)Ordered By: Juan Lynch on 04-05-2025 Glucose [Mass/Vol] 127 mg/dL High 70-99 [facility] Serum or plasma calcium jayro urement (mass/volume)Ordered By: Juan Lynch on 04-05-2025 Calcium [Mass/Vol] 9.8 mg/dL 7.6-11.0 [facility] Serum or plasma urea nitroge n measurement (mass/volume)Ordered By: Juan Lynch on 04-05-2025 Urea nitrogen [Mass/Vol] 6 mg/dL 4-19 [facility] Sodium levelOrdered By: Mark Lynch on 04-05-2025 Sodium [Moles/Vol] 140 mmol/L 133-145 [facility] Spine Lumbar WITH Contraston 04-05-2025 Spine Lumbar WITH Contrast Normal [facility] White blood cell (WBC) count Ordered By: Juan Lynch on 04-05-2025 WBC (Bld) [#/Vol] 5.8 10*3/uL 4.4-11.0 [facility] Absolute lymphocyte countOrd ered By: Sherice Fernandez on 03-16-2025 Lymphocytes Auto (Unsp spec) [#/Vol] 1.00 10*3/uL 0.83-4.51 [facility] Absolute neutrophil countOrd ered By: [facility] on 03-16-2025 Neutrophils (Bld) [#/Vol] 3.2 10*3/uL 2.0-7.7 [facility] Anion gap in Serum or Plasma Ordered By: [facility] on 03-16-2025 Anion gap [Moles/Vol] 12 mmol/L 5-15 [facility] Automated lymphocyte count a s percentage of total leukocytesOrdered By: [facility] on 03-16-2025 Lymphocytes/100 WBC Auto (Unsp spec) 18.6 % Low 19-41 [facility] BUN/creatinine ratioOrdered By: [facility] on 03-16-2025 Urea nitrogen/Creatinine [Mass ratio] 8.4 mg/mg Low 10-20 [facility] Basophil percentageOrdered B y: Sherice Fernandez on 03-16-2025 Basophils/100 WBC (Bld) 0.6 % 0-1 [facility] Bilirubin, totalOrdered By: [facility] Sarahestefany on 03-16-2025 Bilirubin [Mass/Vol] 0.31 mg/dL 0.00-1.30 [facility] CBC W/Diff, Automatedon 02-17 Absolute Lymph 1.00 X10 3/uL Normal 0.83-4.51 [facility] Comment on above: Performed By: #### L 500.4050, L501.2300, L501.5200, L100.0100, L501.9520, L506.0400 ####[facility] [address] [place], [address] Absolute Neut 3.2 X10 3/uL Normal 2.0-7.7 [facility] Comment on above: Performed By: #### L 500.4050, L501.2300, L501.5200, L100.0100, L501.9520, L506.0400 ####[facility] [address] [place], [address] Basophils/100 WBC (Bld) 0.6 % Normal 0-1 [facility] Comment on above: Performed By: #### L 500.4050, L501.2300, L501.5200, L100.0100, L501.9520, L506.0400 ####[facility] [address] [place], [address] Eosinophils/100 WBC (Bld) 0.9 % Normal 0-5 [facility] Comment on above: Performed By: #### L 500.4050, L501.2300, L501.5200, L100.0100, L501.9520, L506.0400 ####[facility] [address] [place], [address] Erythrocyte distribution width (RBC) [Ratio] 17.6 % High 11.6-14.6 [facility] Comment on above: Performed By: #### L 500.4050, L501.2300, L501.5200, L100.0100, L501.9520, L506.0400 ####[facility] [address] [place], [address] Hematocrit (Bld) [Volume fraction] 28.4 % Low 37-47 [facility] Comment on above: Performed By: #### L 500.4050, L501.2300, L501.5200, L100.0100, L501.9520, L506.0400 ####[facility] [address] [place], [address] Hemoglobin (Bld) [Mass/Vol] 9.5 g/dL Low 12.0-15.0 [facility] Comment on above: Performed By: #### L 500.4050, L501.2300, L501.5200, L100.0100, L501.9520, L506.0400 ####[facility] [address] [place], [address] IG% 0.700 Normal 0.0-0.9 [facility] Comment on above: Result Comment: IG% - Immature Granulocytes (promyelocytes, myelocytes andmetamyelocytes) > 1% indicates that a LEFT SHIFT is Present. Performed By: #### L 500.4050, L501.2300, L501.5200, L100.0100, L501.9520, L506.0400 ####[facility] [address] [place], [address] Lymphocytes/100 WBC (Bld) 18.6 % Low 19-41 [facility] Comment on above: Performed By: #### L 500.4050, L501.2300, L501.5200, L100.0100, L501.9520, L506.0400 ####[facility] [address] [place], [address] MCH (RBC) [Entitic mass] 33.0 pg High 27.0-32.0 [facility] Comment on above: Performed By: #### L 500.4050, L501.2300, L501.5200, L100.0100, L501.9520, L506.0400 ####[facility] [address] [place], [address] MCHC (RBC) [Mass/Vol] 33.5 g/dL Normal 32-36 [facility] Comment on above: Performed By: #### L 500.4050, L501.2300, L501.5200, L100.0100, L501.9520, L506.0400 ####[facility] [address] [place], [address] MCV (RBC) [Entitic vol] 98.6 fL Normal 81-99 [facility] Comment on above: Performed By: #### L 500.4050, L501.2300, L501.5200, L100.0100, L501.9520, L506.0400 ####[facility] [address] [place], [address] Monocytes/100 WBC (Bld) 19.9 % High 0-10 [facility] Comment on above: Performed By: #### L 500.4050, L501.2300, L501.5200, L100.0100, L501.9520, L506.0400 ####[facility] [address] [place], [address] Neutrophils/100 WBC (Bld) 59.3 % Normal 47-70 [facility] Comment on above: Performed By: #### L 500.4050, L501.2300, L501.5200, L100.0100, L501.9520, L506.0400 ####[facility] [address] [place], [address] Nucleated RBC (Bld) [#/Vol] 0 10*3/uL Normal 0-5 [facility] Comment on above: Performed By: #### L 500.4050, L501.2300, L501.5200, L100.0100, L501.9520, L506.0400 ####[facility] [address] [place], [address] Platelet mean volume (Bld) [Entitic vol] 10.5 fL Normal 6.2-12.0 [facility] Comment on above: Performed By: #### L 500.4050, L501.2300, L501.5200, L100.0100, L501.9520, L506.0400 ####[facility] [address] [place], [address] Platelets (Bld) [#/Vol] 192 10*3/uL Normal 150-450 [facility] Comment on above: Performed By: #### L 500.4050, L501.2300, L501.5200, L100.0100, L501.9520, L506.0400 ####[facility] [address] [place], [address] RBC (Bld) [#/Vol] 2.88 10*6/uL Low 4.2-5.4 [facility] Comment on above: Performed By: #### L 500.4050, L501.2300, L501.5200, L100.0100, L501.9520, L506.0400 ####[facility] [address] [place], [address] RDW SD 64.3 fl High 35.1-43.9 [facility] Comment on above: Performed By: #### L 500.4050, L501.2300, L501.5200, L100.0100, L501.9520, L506.0400 ####[facility] [address] [place], [address] WBC (Bld) [#/Vol] 5.4 10*3/uL Normal 4.4-11.0 [facility] Comment on above: Performed By: #### L 500.4050, L501.2300, L501.5200, L100.0100, L501.9520, L506.0400 ####[facility] [address] [place], [address] Carbon dioxide, total [Moles /volume] in Central venous bloodOrdered By: Sherice Fernandez on 03-16-2025 CO2 [Moles/Vol] 22.1 mmol/L 21.0-32.0 [facility] Chloride assayOrdered By: Melva Fernandez on 03-16-2025 Chloride [Moles/Vol] 105 mmol/L 98-108 [facility] Comprehensive Metabolic Prof ilon 03-16-2025 Albumin [Mass/Vol] 3.8 g/dL Normal 3.4-4.8 [facility] Comment on above: Performed By: #### L 500.4050, L501.2300, L501.5200, L100.0100, L501.9520, L506.0400 ####[facility] [address] [place], [address] Albumin/Globulin [Mass ratio] 1.3 {ratio} Normal 0.9-2.4 [facility] Comment on above: Performed By: #### L 500.4050, L501.2300, L501.5200, L100.0100, L501.9520, L506.0400 ####[facility] [address] [place], [address] ALK PHOS 158 U/L High 35-104 [facility] Comment on above: Performed By: #### L 500.4050, L501.2300, L501.5200, L100.0100, L501.9520, L506.0400 ####[facility] [address] [place], [address] ALT [Catalytic activity/Vol] 19 U/L Normal <=34 [facility] Comment on above: Performed By: #### L 500.4050, L501.2300, L501.5200, L100.0100, L501.9520, L506.0400 ####[facility] [address] [place], [address] AST [Catalytic activity/Vol] 73 U/L High <=31 [facility] Comment on above: Performed By: #### L 500.4050, L501.2300, L501.5200, L100.0100, L501.9520, L506.0400 ####[facility] [address] [place], [address] Bilirubin [Mass/Vol] 0.31 mg/dL Normal 0.00-1.30 [facility] Comment on above: Performed By: #### L 500.4050, L501.2300, L501.5200, L100.0100, L501.9520, L506.0400 ####[facility] [address] [place], [address] BUN/CRE 8.4 RATIO Low 10-20 [facility] Comment on above: Performed By: #### L 500.4050, L501.2300, L501.5200, L100.0100, L501.9520, L506.0400 ####[facility] [address] [place], [address] Calcium [Mass/Vol] 9.8 mg/dL Normal 7.6-11.0 [facility] Comment on above: Performed By: #### L 500.4050, L501.2300, L501.5200, L100.0100, L501.9520, L506.0400 ####[facility] [address] [place], [address] Chloride [Moles/Vol] 105 mmol/L Normal 98-108 [facility] Comment on above: Performed By: #### L 500.4050, L501.2300, L501.5200, L100.0100, L501.9520, L506.0400 ####[facility] [address] [place], [address] CO2 [Moles/Vol] 22.1 mmol/L Normal 21.0-32.0 [facility] Comment on above: Performed By: #### L 500.4050, L501.2300, L501.5200, L100.0100, L501.9520, L506.0400 ####[facility] [address] [place], [address] Creatinine [Mass/Vol] 0.85 mg/dL Normal 0.70-1.20 [facility] Comment on above: Performed By: #### L 500.4050, L501.2300, L501.5200, L100.0100, L501.9520, L506.0400 ####[facility] [address] [place], [address] ECRCL 56.03 ml/min Normal 50-250 [facility] Comment on above: Performed By: #### L 500.4050, L501.2300, L501.5200, L100.0100, L501.9520, L506.0400 ####[facility] [address] [place], [address] GAP 12 Normal 5-15 [facility] Comment on above: Performed By: #### L 500.4050, L501.2300, L501.5200, L100.0100, L501.9520, L506.0400 ####[facility] [address] [place], [address] GFR/1.73 sq M.predicted among non-blacks MDRD (S/P/Bld) [Vol rate/Area] 74 mL/min/{1.73_m2} Normal >60 [facility] Comment on above: Result Comment: mL/m in/1.73m2 CKD-EPI Creatinine Equation (2020) Performed By: #### L 500.4050, L501.2300, L501.5200, L100.0100, L501.9520, L506.0400 ####[facility] [address] [place], [address] Globulin (S) [Mass/Vol] 3.0 g/dL Normal 2.2-4.2 [facility] Comment on above: Performed By: #### L 500.4050, L501.2300, L501.5200, L100.0100, L501.9520, L506.0400 ####[facility] [address] [place], [address] Glucose [Mass/Vol] 158 mg/dL High 70-99 [facility] Comment on above: Performed By: #### L 500.4050, L501.2300, L501.5200, L100.0100, L501.9520, L506.0400 ####[facility] [address] [place], [address] Potassium [Moles/Vol] 3.8 mmol/L Normal 3.3-5.1 [facility] Comment on above: Performed By: #### L 500.4050, L501.2300, L501.5200, L100.0100, L501.9520, L506.0400 ####[facility] [address] [place], [address] Sodium [Moles/Vol] 140 mmol/L Normal 133-145 [facility] Comment on above: Performed By: #### L 500.4050, L501.2300, L501.5200, L100.0100, L501.9520, L506.0400 ####[facility] [address] [place], [address] T PROT 6.7 g/dL Normal 5.9-8.4 [facility] Comment on above: Performed By: #### L 500.4050, L501.2300, L501.5200, L100.0100, L501.9520, L506.0400 ####[facility] [address] [place], [address] Urea nitrogen [Mass/Vol] 7 mg/dL Normal 4-19 [facility] Comment on above: Performed By: #### L 500.4050, L501.2300, L501.5200, L100.0100, L501.9520, L506.0400 ####[facility] [address] [place], [address] Eosinophil percentageOrdered By: Sherice Fernandez on 03-16-2025 Eosinophils/100 WBC (Bld) 0.9 % 0-5 [facility] Erythrocyte distribution wid th ratioOrdered By: [facility] on 03-16-2025 Erythrocyte distribution width (RBC) [Ratio] 17.6 % High 11.6-14.6 [facility] Erythrocyte distribution wid th standard deviationOrdered By: [facility] on 03-16-2025 Erythrocyte distribution width (RBC) [Ratio] 64.3 fl High 35.1-43.9 [facility] Glomerular filtration rate ( GFR) estimation/1.73 sq m using serum, plasma, or whole bOrdered By: [facility] on 03-16-2025 GFR/1.73 sq M.predicted among non-blacks MDRD (S/P/Bld) [Vol rate/Area] 74 mL/min/{1.73_m2} >60 [facility] Comment on above: mL/min/1.73m2 CKD-EP I Creatinine Equation (2020) Hematocrit Auto (Bld) [Volum e fraction]Ordered By: [facility] on 03-16-2025 Hematocrit (Bld) [Volume fraction] 28.4 % Low 37-47 [facility] Hemoglobin measurementOrdere d By: [facility] on 03-16-2025 Hemoglobin (Bld) [Mass/Vol] 9.5 g/dL Low 12.0-15.0 [facility] Immature granulocytes/100 WB C Auto (Bld)Ordered By: [facility] on 03-16-2025 Immature granulocytes/100 WBC (Bld) 0.700 % 0.0-0.9 [facility] Comment on above: IG% - Immature Granu locytes (promyelocytes, myelocytes and metamyelocytes) > 1% indicates that a LEFT SHIFT is Present. L509.6001on 03-16-2025 CORTISOL 9.88 ug/dL Normal 6.02-18.40 [facility] Comment on above: Performed By: #### L 509.6001 ####[facility] [address] [place], [address] Laboratory - Chemistry and C hemistry - challengeOrdered By: [facility] on 03-16-2025 AST [Catalytic activity/Vol] 73 U/L High <32 [facility] MCV (mean corpuscular volume ) determinationOrdered By: Sherice Fernandez on 03-16-2025 MCV (RBC) [Entitic vol] 98.6 fL 81-99 [facility] Magnesiumon 03-16-2025 Magnesium [Mass/Vol] 1.5 mg/dL Normal 1.5-2.2 [facility] Comment on above: Performed By: #### L 500.4050, L501.2300, L501.5200, L100.0100, L501.9520, L506.0400 ####[facility] [address] [place], [address] Magnesium measurement (mass/ volume)Ordered By: Sherice Fernandez on 03-16-2025 Magnesium (Unsp spec) [Mass/Vol] 1.5 mg/dL 1.5-2.2 [facility] Mean corpuscular hemoglobin (MCH) determinationOrdered By: Sherice Fernandez on 03-16-2025 MCH (RBC) [Entitic mass] 33.0 pg High 27.0-32.0 [facility] Mean corpuscular hemoglobin concentration (MCHC) determinationOrdered By: Sherice Fernandez on 03-16-2025 MCHC (RBC) [Mass/Vol] 33.5 g/dL 32-36 [facility] Mean platelet volume determi nationOrdered By: Sherice Fernandez on 03-16-2025 Platelet mean volume (Bld) [Entitic vol] 10.5 fL 6.2-12.0 [facility] Monocyte percentageOrdered B y: Sherice Fernandez on 03-16-2025 Monocytes/100 WBC (Bld) 19.9 % High 0-10 [facility] Neutrophil percentageOrdered By: [facility] on 03-16-2025 Neutrophils/100 WBC (Bld) 59.3 % 47-70 [facility] Nucleated red blood cell per centageOrdered By: Sherice Fernandez on 03-16-2025 Nucleated RBC/100 WBC (Bld) [Ratio] 0 % 0-5 [facility] Oncology Visit Reporton 02-17 Oncology Visit Report Normal [facility] Phosphoruson 03-16-2025 Phosphate [Mass/Vol] 3.4 mg/dL Normal 2.7-4.5 [facility] Comment on above: Performed By: #### L 500.4050, L501.2300, L501.5200, L100.0100, L501.9520, L506.0400 ####[facility] [address] [place], [address] Platelet countOrdered By: Melva Fernandez on 03-16-2025 Platelets (Bld) [#/Vol] 192 10*3/uL 150-450 [facility] Potassium measurement (mass/ volume)Ordered By: Sherice Fernandez on 03-16-2025 Potassium (Unsp spec) [Mass/Vol] 3.8 mmol/L 3.3-5.1 [facility] RBC Auto (Bld) [#/Vol]Ordere d By: Sherice Fernandez on 03-16-2025 RBC (Bld) [#/Vol] 2.88 10*6/uL Low 4.2-5.4 [facility] Serum creatinine measurement (mass/volume)Ordered By: Sherice Fernandez on 03-16-2025 Creatinine [Mass/Vol] 0.85 mg/dL 0.70-1.20 [facility] Serum globulin measurementOr dered By: Sherice Fernandez on 03-16-2025 Globulin (S) [Mass/Vol] 3.0 g/dL 2.2-4.2 [facility] Serum glucose measurement (m ass/volume)Ordered By: Sherice Fernandez on 03-16-2025 Glucose [Mass/Vol] 158 mg/dL High 70-99 [facility] Serum or plasma alanine encarnacion otransferase (ALT) measurementOrdered By: Sherice Fernandez on 03-16-2025 ALT [Catalytic activity/Vol] 19 U/L <35 [facility] Serum or plasma albumin jayro urement (mass/volume)Ordered By: Sherice Fernandez on 03-16-2025 Albumin [Mass/Vol] 3.8 g/dL 3.4-4.8 [facility] Serum or plasma albumin/glob ulin mass ratioOrdered By: Sherice Fernandez on 03-16-2025 Albumin/Globulin [Mass ratio] 1.3 {ratio} 0.9-2.4 [facility] Serum or plasma alkaline lukas sphatase measurementOrdered By: Sherice Fernandez on 03-16-2025 ALP [Catalytic activity/Vol] 158 U/L High 35-104 [facility] Serum or plasma calcium ajyro urement (mass/volume)Ordered By: Sherice Fernandez on 03-16-2025 Calcium [Mass/Vol] 9.8 mg/dL 7.6-11.0 [facility] Serum or plasma cortisol caesar surement (mass/volume)Ordered By: Sherice Fernandez on 03-16-2025 Cortisol [Mass/Vol] 9.88 ug/dL 6.02-18.40 [facility] Serum or plasma urea nitroge n measurement (mass/volume)Ordered By: Sherice Fernandez on 03-16-2025 Urea nitrogen [Mass/Vol] 7 mg/dL 4-19 [facility] Sodium levelOrdered By: Carmella Fernandez on 03-16-2025 Sodium [Moles/Vol] 140 mmol/L 133-145 [facility] T4 Free Directon 03-16-2025 T4 FREE DIRECT 1.10 ng/dL Normal 0.76-1.46 [facility] Comment on above: Performed By: #### L 500.4050, L501.2300, L501.5200, L100.0100, L501.9520, L506.0400 ####[facility] [address] [place], [address] T4 freeOrdered By: Sherice burciaga on 03-16-2025 Free T4 [Mass/Vol] 1.10 ng/dL 0.76-1.46 [facility] TSH DL <= 0.005 mIU/L QnOrde red By: Sherice Fernandez on 03-16-2025 TSH Qn 2.960 uIU/mL 0.300-4.200 [facility] Thyroid Stim Hormone (TSH)on 03-16-2025 TSH 2.960 uIU/mL Normal 0.300-4.200 [facility] Comment on above: Performed By: #### L 500.4050, L501.2300, L501.5200, L100.0100, L501.9520, L506.0400 ####[facility] [address] [place], [address] Total proteinOrdered By: Nain Smithpiper on 03-16-2025 Protein [Mass/Vol] 6.7 g/dL 5.9-8.4 [facility] White blood cell (WBC) count Ordered By: Sherice Smithestefany on 03-16-2025 WBC (Bld) [#/Vol] 5.4 10*3/uL 4.4-11.0 [facility] Absolute lymphocyte countOrd ered By: Sherice Smithestefany on 02-24-2025 Lymphocytes Auto (Unsp spec) [#/Vol] 1.24 10*3/uL 0.83-4.51 [facility] Anion gap in Serum or Plasma Ordered By: Sherice Smithestefany on 02-24-2025 Anion gap [Moles/Vol] 11 mmol/L 5-15 [facility] Automated lymphocyte count a s percentage of total leukocytesOrdered By: Sherice Smithestefany on 02-24-2025 Lymphocytes/100 WBC Auto (Unsp spec) 18.7 % Low 19-41 [facility] BUN/creatinine ratioOrdered By: [facility] on 02-24-2025 Urea nitrogen/Creatinine [Mass ratio] 15.8 mg/mg 10-20 [facility] Basophil percentageOrdered B y: Sherice Smithestefany on 02-24-2025 Basophils/100 WBC (Bld) 0.6 % 0-1 [facility] Bilirubin, totalOrdered By: Sherice Smithestefany on 02-24-2025 Bilirubin [Mass/Vol] 0.24 mg/dL Normal 0.00-1.30 [facility] Comment on above: Performed By: #### L 500.4050, L501.2300, L100.0100, L506.0400, L501.9520, L501.5200 ####[facility] [address] [place], [place], [id number] CBC W/Diff, AutomatedOrdered By: Sherice Fernandez on 02-24-2025 Anisocytosis Ql (Bld) 13 Normal [facility] Comment on above: Performed By: #### L 500.4050, L501.2300, L100.0100, L506.0400, L501.9520, L501.5200 ####[facility] [address] [place], [place], [phone] CBC W/Diff, Automatedon 02-15 PLT EST A Normal ADEQ [facility] Comment on above: Performed By: #### L 500.4050, L501.2300, L100.0100, L506.0400, L501.9520, L501.5200 ####[facility] [address] [place], [phone] RED CELL MORPH NORM C+C Normal NORM C C [facility] Comment on above: Performed By: #### L 500.4050, L501.2300, L100.0100, L506.0400, L501.9520, L501.5200 ####[facility] [address] [place], [place], [phone] Carbon dioxide, total [Moles /volume] in Central venous bloodOrdered By: Sherice Fernandez on 02-24-2025 CO2 [Moles/Vol] 24.1 mmol/L Normal 21.0-32.0 [facility] Comment on above: Performed By: #### L 500.4050, L501.2300, L100.0100, L506.0400, L501.9520, L501.5200 ####[facility] [address] [place], [place], [phone] Chloride assayOrdered By: Melva Fernandez on 02-24-2025 Chloride [Moles/Vol] 104 mmol/L Normal 98-108 [facility] Comment on above: Performed By: #### L 500.4050, L501.2300, L100.0100, L506.0400, L501.9520, L501.5200 ####[facility] [address] [place], [address] Comprehensive Metabolic Prof ilon 02-24-2025 ALK PHOS 155 U/L High 35-104 [facility] Comment on above: Performed By: #### L 500.4050, L501.2300, L100.0100, L506.0400, L501.9520, L501.5200 ####[facility] [address] [place], [address] AST [Catalytic activity/Vol] 43 U/L High <=31 [facility] Comment on above: Performed By: #### L 500.4050, L501.2300, L100.0100, L506.0400, L501.9520, L501.5200 ####[facility] [address] [place], [address] BUN/CRE 15.8 RATIO Normal 10-20 [facility] Comment on above: Performed By: #### L 500.4050, L501.2300, L100.0100, L506.0400, L501.9520, L501.5200 ####[facility] [address] [place], [address] ECRCL 59.36 ml/min Normal 50-250 [facility] Comment on above: Performed By: #### L 500.4050, L501.2300, L100.0100, L506.0400, L501.9520, L501.5200 ####[facility] [address] [place], [address] GAP 11 Normal 5-15 [facility] Comment on above: Performed By: #### L 500.4050, L501.2300, L100.0100, L506.0400, L501.9520, L501.5200 ####[facility] [address] [place], [address] Potassium [Moles/Vol] 3.9 mmol/L Normal 3.3-5.1 [facility] Comment on above: Performed By: #### L 500.4050, L501.2300, L100.0100, L506.0400, L501.9520, L501.5200 ####[facility] [address] [place], [address] T PROT 6.6 g/dL Normal 5.9-8.4 [facility] Comment on above: Performed By: #### L 500.4050, L501.2300, L100.0100, L506.0400, L501.9520, L501.5200 ####[facility] [address] [place], [address] Eosinophil percentageOrdered By: Sherice Fernandez on 02-24-2025 Eosinophils/100 WBC (Bld) 0.6 % 0-5 [facility] Erythrocyte distribution wid th ratioOrdered By: Sherice Fernandez on 02-24-2025 Erythrocyte distribution width (RBC) [Ratio] 20.3 % High 11.6-14.6 [facility] Erythrocyte distribution wid th standard deviationOrdered By: Sherice Fernandez on 02-24-2025 Erythrocyte distribution width (RBC) [Ratio] 74.4 fl High 35.1-43.9 [facility] Erythrocyte morphology asses smentOrdered By: Sherice Fernandez on 02-24-2025 RBC morphology finding Nom (Bld) NORM C+C NORMAL NORM C&C [facility] Glomerular filtration rate ( GFR) estimation/1.73 sq m using serum, plasma, or whole bOrdered By: Sherice Fernandez on 02-24-2025 GFR/1.73 sq M.predicted among non-blacks MDRD (S/P/Bld) [Vol rate/Area] 78 mL/min/{1.73_m2} Normal >60 [facility] Comment on above: Result Comment: mL/m in/1.73m2 CKD-EPI Creatinine Equation (2020) Performed By: #### L 500.4050, L501.2300, L100.0100, L506.0400, L501.9520, L501.5200 ####[facility] [address] [place], [place], [phone] Hematocrit Auto (Bld) [Volum e fraction]Ordered By: Sherice Fernandez on 02-24-2025 Hematocrit (Bld) [Volume fraction] 31.1 % Low 37-47 [facility] Hemoglobin measurementOrdere d By: Sherice Fernandez on 02-24-2025 Hemoglobin (Bld) [Mass/Vol] 10.1 g/dL Low 12.0-15.0 [facility] Immature granulocytes/100 WB C Auto (Bld)Ordered By: Sherice Fernandez on 02-24-2025 Immature granulocytes/100 WBC (Bld) 1.200 % High 0.0-0.9 [facility] MCV (mean corpuscular volume ) determinationOrdered By: Sherice Fernandez on 02-24-2025 MCV (RBC) [Entitic vol] 97.8 fL 81-99 [facility] Magnesiumon 02-24-2025 Magnesium [Mass/Vol] 1.6 mg/dL Normal 1.5-2.2 [facility] Comment on above: Performed By: #### L 500.4050, L501.2300, L100.0100, L506.0400, L501.9520, L501.5200 ####[facility] [address] [place], [address] Magnesium measurement (mass/ volume)Ordered By: Sherice Fernandez on 02-24-2025 Magnesium (Unsp spec) [Mass/Vol] 1.6 mg/dL 1.5-2.2 [facility] Mean corpuscular hemoglobin (MCH) determinationOrdered By: Sherice Fernandez on 02-24-2025 MCH (RBC) [Entitic mass] 31.8 pg 27.0-32.0 [facility] Monocyte percentageOrdered B y: Sherice Fernandez on 02-24-2025 Monocytes/100 WBC (Bld) 18.1 % High 0-10 [facility] Neutrophil percentageOrdered By: Sherice Fernandez on 02-24-2025 Neutrophils/100 WBC (Bld) 60.8 % 47-70 [facility] No Panel InformationOrdered By: Sherice Fernandez on 02-24-2025 13 [facility] 43 U/L High <32 [facility] Oncology Visit Reporton 02-15 Oncology Visit Report Normal [facility] Phosphoruson 02-24-2025 Phosphate [Mass/Vol] 3.4 mg/dL Normal 2.7-4.5 [facility] Comment on above: Performed By: #### L 500.4050, L501.2300, L100.0100, L506.0400, L501.9520, L501.5200 ####[facility] [address] [place], [place], [phone] Platelet countOrdered By: Melva Fernandez on 02-24-2025 Platelets (Bld) [#/Vol] 317 10*3/uL 150-450 [facility] Platelet estimateOrdered By: Sherice Fernandez on 02-24-2025 Platelets LM Ql (Bld) A ADEQ [facility] Potassium measurement (mass/ volume)Ordered By: Sherice Fernandez on 02-24-2025 Potassium (Unsp spec) [Mass/Vol] 3.9 mmol/L 3.3-5.1 [facility] RBC Auto (Bld) [#/Vol]Ordere d By: Sherice Fernandez on 02-24-2025 RBC (Bld) [#/Vol] 3.18 10*6/uL Low 4.2-5.4 [facility] Serum creatinine measurement (mass/volume)Ordered By: Sherice Fernandez on 02-24-2025 Creatinine [Mass/Vol] 0.81 mg/dL Normal 0.70-1.20 [facility] Comment on above: Performed By: #### L 500.4050, L501.2300, L100.0100, L506.0400, L501.9520, L501.5200 ####[facility] [address] [place], [address] Serum globulin measurementOr dered By: Sherice Fernandez on 02-24-2025 Globulin (S) [Mass/Vol] 2.7 g/dL Normal 2.2-4.2 [facility] Comment on above: Performed By: #### L 500.4050, L501.2300, L100.0100, L506.0400, L501.9520, L501.5200 ####[facility] [address] [place], [place], [phone] Serum glucose measurement (m ass/volume)Ordered By: Sherice Fernandez on 02-24-2025 Glucose [Mass/Vol] 123 mg/dL High 70-99 [facility] Comment on above: Performed By: #### L 500.4050, L501.2300, L100.0100, L506.0400, L501.9520, L501.5200 ####[facility] [address] [facility] [place], [place], [phone] Serum or plasma alanine encarnacion otransferase (ALT) measurementOrdered By: Sherice Fernandez on 02-24-2025 ALT [Catalytic activity/Vol] 17 U/L Normal <=34 [facility] Comment on above: Performed By: #### L 500.4050, L501.2300, L100.0100, L506.0400, L501.9520, L501.5200 ####[facility] [address] [facility] [address] [place], [place], [phone] Serum or plasma albumin jayro urement (mass/volume)Ordered By: Sherice Fernandez on 02-24-2025 Albumin [Mass/Vol] 3.9 g/dL Normal 3.4-4.8 [facility] Comment on above: Performed By: #### L 500.4050, L501.2300, L100.0100, L506.0400, L501.9520, L501.5200 ####[facility] [address] [place], [address] Serum or plasma albumin/glob ulin mass ratioOrdered By: Sherice Fernandez on 02-24-2025 Albumin/Globulin [Mass ratio] 1.4 {ratio} Normal 0.9-2.4 [facility] Comment on above: Performed By: #### L 500.4050, L501.2300, L100.0100, L506.0400, L501.9520, L501.5200 ####[facility] [address] [place], [address] Serum or plasma alkaline lukas sphatase measurementOrdered By: Sherice Fernandez on 02-24-2025 ALP [Catalytic activity/Vol] 155 U/L High 35-104 [facility] Serum or plasma calcium jayro urement (mass/volume)Ordered By: Sherice Fernandez on 02-24-2025 Calcium [Mass/Vol] 9.4 mg/dL Normal 7.6-11.0 [facility] Comment on above: Performed By: #### L 500.4050, L501.2300, L100.0100, L506.0400, L501.9520, L501.5200 ####[facility] [address] [place], [address] Serum or plasma urea nitroge n measurement (mass/volume)Ordered By: Sherice Fernandez on 02-24-2025 Urea nitrogen [Mass/Vol] 13 mg/dL Normal 4-19 [facility] Comment on above: Performed By: #### L 500.4050, L501.2300, L100.0100, L506.0400, L501.9520, L501.5200 ####[facility] [address] [place], [address] Sodium levelOrdered By: Carmella Fernandez on 02-24-2025 Sodium [Moles/Vol] 139 mmol/L Normal 133-145 [facility] Comment on above: Performed By: #### L 500.4050, L501.2300, L100.0100, L506.0400, L501.9520, L501.5200 ####[facility] [address] [place], [place], [phone] T4 Free Directon 02-24-2025 T4 FREE DIRECT 0.80 ng/dL Normal 0.76-1.46 [facility] Comment on above: Performed By: #### L 500.4050, L501.2300, L100.0100, L506.0400, L501.9520, L501.5200 ####[facility] [address] [place], [address] T4 freeOrdered By: Sherice burciaga on 02-24-2025 Free T4 [Mass/Vol] 0.80 ng/dL 0.76-1.46 [facility] TSH DL <= 0.005 mIU/L QnOrde red By: Sherice Fernandez on 02-24-2025 TSH Qn 3.640 uIU/mL 0.300-4.200 [facility] Thyroid Stim Hormone (TSH)on 02-24-2025 TSH 3.640 uIU/mL Normal 0.300-4.200 [facility] Comment on above: Performed By: #### L 500.4050, L501.2300, L100.0100, L506.0400, L501.9520, L501.5200 ####[facility] [address] [place], [place], [phone] Total proteinOrdered By: Nain Fernandez on 02-24-2025 Protein [Mass/Vol] 6.6 g/dL 5.9-8.4 [facility] White blood cell (WBC) count Ordered By: Sherice Fernandez on 02-24-2025 WBC (Bld) [#/Vol] 6.6 10*3/uL 4.4-11.[address] [facility] [address] Chest AND Abd W/ Contrast on 02-17-2025 CT Chest AND Abd W/ Contrast Normal [facility] Lumbar Spine 2 or 3 Viewson 02-16-2025 Lumbar Spine 2 or 3 Views Normal [facility] MR/POSTOP.ANEon 02-16-2025 MR/POSTOP.ANE Normal [facility] MR/AGCYDSVO2km 02-16-2025 MR/POSTOPAN2 Normal [facility] Operative Reporton Operative Report Normal [facility] MR/PAT.ANEon 02-11-2025 MR/PAT.ANE Normal [facility] CBC W/Diff, Automatedon 01-16 PATH REV Reviewed Normal [facility] Comment on above: Result Comment: SEE REPORT IN PATIENT'S EMR AMENDED REPORT 02/05/25 [id number] PATH REV previously reported as: January anastasia Performed By: #### L 500.2500, L100.0100 ####[facility] [address] [place], [address] Absolute lymphocyte countOrd ered By: Sherice Fernandez on 02-03-2025 Lymphocytes Auto (Unsp spec) [#/Vol] 1.14 10*3/uL 0.83-4.51 [facility] Absolute neutrophil countOrd ered By: [facility] on 02-03-2025 Neutrophils (Bld) [#/Vol] 3.1 10*3/uL 2.0-7.7 [facility] Anion gap in Serum or Plasma Ordered By: Sherice Fernandez on 02-03-2025 Anion gap [Moles/Vol] 11 mmol/L - [facility] Automated lymphocyte count a s percentage of total leukocytesOrdered By: Sherice Fernandez on 02-03-2025 Lymphocytes/100 WBC Auto (Unsp spec) 19.9 % - [facility] BUN/creatinine ratioOrdered By: Sherice Fernandez on 02-03-2025 Urea nitrogen/Creatinine [Mass ratio] 8.6 mg/mg Low - [facility] Basophil percentageOrdered B y: Sherice Fernandez on 02-03-2025 Basophils/100 WBC (Bld) 1.9 % High 0-1 [facility] Bilirubin, totalOrdered By: Sherice Fernandez on 02-03-2025 Bilirubin [Mass/Vol] 0.41 mg/dL 0.00-1.30 [facility] CBC W/Diff, Automatedon 01-16 Anisocytosis Ql (Bld) 1+ Normal [facility] Comment on above: Performed By: #### L 501.5200, L100.0100, L506.0400, L501.9520, L500.4050, L501.2300 ####[facility] [address] [place], [address] Carbon dioxide, total [Moles /volume] in Central venous bloodOrdered By: Sherice Fernandez on 02-03-2025 CO2 [Moles/Vol] 24.1 mmol/L 21.0-32.0 [facility] Chloride assayOrdered By: Melva Fernandez on 02-03-2025 Chloride [Moles/Vol] 106 mmol/L 98-108 [facility] Comprehensive Metabolic Prof ilon 02-03-2025 Albumin [Mass/Vol] 3.4 g/dL Normal 3.4-4.8 [facility] Comment on above: Performed By: #### L 501.5200, L100.0100, L506.0400, L501.9520, L500.4050, L501.2300 ####[facility] [address] [place], [address] Albumin/Globulin [Mass ratio] 1.0 {ratio} Normal 0.9-2.4 [facility] Comment on above: Performed By: #### L 501.5200, L100.0100, L506.0400, L501.9520, L500.4050, L501.2300 ####[facility] [address] [place], [address] ALK PHOS 162 U/L High 35-104 [facility] Comment on above: Performed By: #### L 501.5200, L100.0100, L506.0400, L501.9520, L500.4050, L501.2300 ####[facility] [address] [place], [address] ALT [Catalytic activity/Vol] 10 U/L Normal <=34 [facility] Comment on above: Performed By: #### L 501.5200, L100.0100, L506.0400, L501.9520, L500.4050, L501.2300 ####[facility] [address] [place], [address] AST [Catalytic activity/Vol] 39 U/L High <=31 [facility] Comment on above: Performed By: #### L 501.5200, L100.0100, L506.0400, L501.9520, L500.4050, L501.2300 ####[facility] [address] [place], [address] Bilirubin [Mass/Vol] 0.41 mg/dL Normal 0.00-1.30 [facility] Comment on above: Performed By: #### L 501.5200, L100.0100, L506.0400, L501.9520, L500.4050, L501.2300 ####[facility] [address] [place], [address] BUN/CRE 8.6 RATIO Low 10-20 [facility] Comment on above: Performed By: #### L 501.5200, L100.0100, L506.0400, L501.9520, L500.4050, L501.2300 ####[facility] [address] [place], [address] Calcium [Mass/Vol] 9.4 mg/dL Normal 7.6-11.0 [facility] Comment on above: Performed By: #### L 501.5200, L100.0100, L506.0400, L501.9520, L500.4050, L501.2300 ####[facility] [address] [place], [address] Chloride [Moles/Vol] 106 mmol/L Normal 98-108 [facility] Comment on above: Performed By: #### L 501.5200, L100.0100, L506.0400, L501.9520, L500.4050, L501.2300 ####[facility] [address] [place], [address] CO2 [Moles/Vol] 24.1 mmol/L Normal 21.0-32.0 [facility] Comment on above: Performed By: #### L 501.5200, L100.0100, L506.0400, L501.9520, L500.4050, L501.2300 ####[facility] [address] [place], [address] Creatinine [Mass/Vol] 0.82 mg/dL Normal 0.70-1.20 [facility] Comment on above: Performed By: #### L 501.5200, L100.0100, L506.0400, L501.9520, L500.4050, L501.2300 ####[facility] [address] [place], [address] ECRCL 52.81 ml/min Normal 50-250 [facility] Comment on above: Performed By: #### L 501.5200, L100.0100, L506.0400, L501.9520, L500.4050, L501.2300 ####[facility] [address] [place], [address] GAP 11 Normal 5-15 [facility] Comment on above: Performed By: #### L 501.5200, L100.0100, L506.0400, L501.9520, L500.4050, L501.2300 ####[facility] [address] [place], [address] GFR/1.73 sq M.predicted among non-blacks MDRD (S/P/Bld) [Vol rate/Area] 77 mL/min/{1.73_m2} Normal >60 [facility] Comment on above: Result Comment: mL/m in/1.73m2 CKD-EPI Creatinine Equation (2020) Performed By: #### L 501.5200, L100.0100, L506.0400, L501.9520, L500.4050, L501.2300 ####[facility] [address] [place], [address] Globulin (S) [Mass/Vol] 3.3 g/dL Normal 2.2-4.2 [facility] Comment on above: Performed By: #### L 501.5200, L100.0100, L506.0400, L501.9520, L500.4050, L501.2300 ####[facility] [address] [place], [address] Glucose [Mass/Vol] 108 mg/dL High 70-99 [facility] Comment on above: Performed By: #### L 501.5200, L100.0100, L506.0400, L501.9520, L500.4050, L501.2300 ####[facility] [address] [place], [address] Potassium [Moles/Vol] 4.0 mmol/L Normal 3.3-5.1 [facility] Comment on above: Performed By: #### L 501.5200, L100.0100, L506.0400, L501.9520, L500.4050, L501.2300 ####[facility] [address] [place], [address] Sodium [Moles/Vol] 141 mmol/L Normal 133-145 [facility] Comment on above: Performed By: #### L 501.5200, L100.0100, L506.0400, L501.9520, L500.4050, L501.2300 ####[facility] [address] [place], [place], [phone] T PROT 6.6 g/dL Normal 5.9-8.4 [facility] Comment on above: Performed By: #### L 501.5200, L100.0100, L506.0400, L501.9520, L500.4050, L501.2300 ####[facility] [address] [place], [place], [phone] Urea nitrogen [Mass/Vol] 7 mg/dL Normal 4-19 [facility] Comment on above: Performed By: #### L 501.5200, L100.0100, L506.0400, L501.9520, L500.4050, L501.2300 ####[facility] [address] [place], [place], [phone] Eosinophil percentageOrdered By: Sherice Fernandez on 02-03-2025 Eosinophils/100 WBC (Bld) 0.9 % 0-5 [facility] Erythrocyte distribution wid th ratioOrdered By: Sherice Fernandez on 02-03-2025 Erythrocyte distribution width (RBC) [Ratio] 19.5 % High 11.6-14.6 [facility] Erythrocyte distribution wid th standard deviationOrdered By: [facility] on 02-03-2025 Erythrocyte distribution width (RBC) [Ratio] 65.8 fl High 35.1-43.9 [facility] Glomerular filtration rate ( GFR) estimation/1.73 sq m using serum, plasma, or whole bOrdered By: Sherice Fernandez on 02-03-2025 GFR/1.73 sq M.predicted among non-blacks MDRD (S/P/Bld) [Vol rate/Area] 77 mL/min/{1.73_m2} >60 [facility] Comment on above: mL/min/1.73m2 CKD-EP I Creatinine Equation (2020) Hematocrit Auto (Bld) [Volum e fraction]Ordered By: Sherice Fernandez on 02-03-2025 Hematocrit (Bld) [Volume fraction] 32.6 % Low 37-47 [facility] Hemoglobin measurementOrdere d By: Sherice Fernandez on 02-03-2025 Hemoglobin (Bld) [Mass/Vol] 10.7 g/dL Low 12.0-15.0 [facility] Immature granulocytes/100 WB C Auto (Bld)Ordered By: Sherice Fernandez on 02-03-2025 Immature granulocytes/100 WBC (Bld) 0.300 % 0.0-0.9 [facility] Comment on above: IG% - Immature Granu locytes (promyelocytes, myelocytes and metamyelocytes) > 1% indicates that a LEFT SHIFT is Present. Laboratory - Chemistry and C hemistry - challengeOrdered By: Sherice Fernandez on 02-03-2025 AST [Catalytic activity/Vol] 39 U/L High <32 [facility] Laboratory - Hematology and Cell countsOrdered By: Sherice Fernandez on 02-03-2025 Anisocytosis Ql (Bld) 1+ [facility] MCV (mean corpuscular volume ) determinationOrdered By: Sherice Fernandez on 02-03-2025 MCV (RBC) [Entitic vol] 92.1 fL 81-99 [facility] Magnesiumon 02-03-2025 Magnesium [Mass/Vol] 1.5 mg/dL Normal 1.5-2.2 [facility] Comment on above: Performed By: #### L 501.5200, L100.0100, L506.0400, L501.9520, L500.4050, L501.2300 ####[facility] [id number] [place], [address] Magnesium measurement (mass/ volume)Ordered By: Sherice Fernandez on 02-03-2025 Magnesium (Unsp spec) [Mass/Vol] 1.5 mg/dL 1.5-2.2 [facility] Mean corpuscular hemoglobin (MCH) determinationOrdered By: Sherice Fernandez on 02-03-2025 MCH (RBC) [Entitic mass] 30.2 pg 27.0-32.0 [facility] Mean corpuscular hemoglobin concentration (MCHC) determinationOrdered By: Sherice Fernandez on 02-03-2025 MCHC (RBC) [Mass/Vol] 32.8 g/dL 32-36 [facility] Mean platelet volume determi nationOrdered By: Sherice Fernandez on 02-03-2025 Platelet mean volume (Bld) [Entitic vol] 9.6 fL 6.2-12.0 [facility] Monocyte percentageOrdered B y: Sherice Fernandez on 02-03-2025 Monocytes/100 WBC (Bld) 22.7 % High 0-10 [facility] Neutrophil percentageOrdered By: Sherice Fernandez on 02-03-2025 Neutrophils/100 WBC (Bld) 54.3 % 47-70 [facility] No Panel InformationOrdered By: Sherice Fernandez on 02-03-2025 1+ [facility] 39 U/L High <32 [facility] Nucleated red blood cell per centageOrdered By: Sherice Fernandez on 02-03-2025 Nucleated RBC/100 WBC (Bld) [Ratio] 0 % 0-5 [facility] Oncology Visit Reporton 01-16 0-2024 Oncology Visit Report Normal [facility] Phosphoruson 02-03-2025 Phosphate [Mass/Vol] 4.0 mg/dL Normal 2.7-4.5 [facility] Comment on above: Performed By: #### L 501.5200, L100.0100, L506.0400, L501.9520, L500.4050, L501.2300 ####[facility] [address] [place], [address] Platelet countOrdered By: Melva Fernandez on 02-03-2025 Platelets (Bld) [#/Vol] 356 10*3/uL 150-450 [facility] Potassium measurement (mass/ volume)Ordered By: Sherice Fernandez on 02-03-2025 Potassium (Unsp spec) [Mass/Vol] 4.0 mmol/L 3.3-5.1 [facility] RBC Auto (Bld) [#/Vol]Ordere d By: Sherice Fernandez on 02-03-2025 RBC (Bld) [#/Vol] 3.54 10*6/uL Low 4.2-5.4 [facility] Serum creatinine measurement (mass/volume)Ordered By: Sherice Fernandez on 02-03-2025 Creatinine [Mass/Vol] 0.82 mg/dL 0.70-1.20 [facility] Serum globulin measurementOr dered By: Sherice Fernandez on 02-03-2025 Globulin (S) [Mass/Vol] 3.3 g/dL 2.2-4.2 [facility] Serum glucose measurement (m ass/volume)Ordered By: Sherice Fernandez on 02-03-2025 Glucose [Mass/Vol] 108 mg/dL High 70-99 [facility] Serum or plasma alanine encarnacion otransferase (ALT) measurementOrdered By: Sherice Fernandez on 02-03-2025 ALT [Catalytic activity/Vol] 10 U/L <35 [facility] Serum or plasma albumin jayro urement (mass/volume)Ordered By: Sherice Fernandez on 02-03-2025 Albumin [Mass/Vol] 3.4 g/dL 3.4-4.8 [facility] Serum or plasma albumin/glob ulin mass ratioOrdered By: Sherice Fernandez on 02-03-2025 Albumin/Globulin [Mass ratio] 1.0 {ratio} 0.9-2.4 [facility] Serum or plasma alkaline lukas sphatase measurementOrdered By: Sherice Fernandez on 02-03-2025 ALP [Catalytic activity/Vol] 162 U/L High 35-104 [facility] Serum or plasma calcium jayro urement (mass/volume)Ordered By: Sherice Fernandez on 02-03-2025 Calcium [Mass/Vol] 9.4 mg/dL 7.6-11.0 [facility] Serum or plasma urea nitroge n measurement (mass/volume)Ordered By: Sherice Fernandez on 02-03-2025 Urea nitrogen [Mass/Vol] 7 mg/dL 4-19 [facility] Sodium levelOrdered By: Carmella Fernandez on 02-03-2025 Sodium [Moles/Vol] 141 mmol/L 133-145 [facility] T4 Free Directon 02-03-2025 T4 FREE DIRECT 0.90 ng/dL Normal 0.76-1.46 [facility] Comment on above: Performed By: #### L 501.5200, L100.0100, L506.0400, L501.9520, L500.4050, L501.2300 ####[facility] [address] [place], [address] T4 freeOrdered By: Sherice burciaga on 02-03-2025 Free T4 [Mass/Vol] 0.90 ng/dL 0.76-1.46 [facility] TSH DL <= 0.005 mIU/L QnOrde red By: Sherice Fernandez on 02-03-2025 TSH Qn 3.490 uIU/mL 0.300-4.200 [facility] Thyroid Stim Hormone (TSH)on 02-03-2025 TSH 3.490 uIU/mL Normal 0.300-4.200 [facility] Comment on above: Performed By: #### L 501.5200, L100.0100, L506.0400, L501.9520, L500.4050, L501.2300 ####[facility] [address] [place], [address] Total proteinOrdered By: Nain Fernandez on 02-03-2025 Protein [Mass/Vol] 6.6 g/dL 5.9-8.4 [facility] White blood cell (WBC) count Ordered By: Sherice Fernandez on 02-03-2025 WBC (Bld) [#/Vol] 5.7 10*3/uL 4.4-11.0 [facility] CNOVon 01-26-2025 CNOV Office Visit (FAMPWS) BETSY RODRIGEZ ([id number]) 1955 F Date Time Provider Department 01/26/25 1:20 PM GIRISH LEMOS During your visit today, we recorded the following information about you: Temperature Pulse Respiration Blood pressure 99.3 degrees 80/minute 16/minute 116/66 Weight 64 kg Girish Lemos MD 01/26/2025 1:43 PM Signed Chief Complaint Patient presents with: Cough: Non-productive Throat Problem: Hoarse and sore sinus congestion with occasional green mucus Perspiration Recording using [employer] software for draft documentation of the visit was discussed with the patient/authorized medical 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 Patient/authorized medical sales representative agreed to proceed HPI Betsy [...] III (moderate) (HCC) Colon polyp tubular adenoma [address] 07/16 to 08/17 DDD (degenerative disc [...] Known Problems Brother Stroke Maternal Grandmother or [place], patient unsure Coronary Artery Disease Maternal Grandfather Alcohol abuse Paternal Grandfather Patient Allergies ALLERGIES Allergen Reactions Meagan Inhibitors Rash Codeine Vomiting, Other: See Comments Headache Remeron [Mirtazapin* Other: See Comments Fatigue Oelestr-Yqf-Zah Red* Myalgia Buckner Unknown Zetia [Ezetimibe] Myalgia Current Medications Current [...] hours as needed for pain. mv,jaci,iron,mn/folic acid/chol (JRPF-PBPR-PGJWZ, PABA, ORAL) Take 1 tablet by mouth once daily. Minoxidil 2 % external solution Apply 1 mL to affected area twice daily. albuterol (PROVENTIL) 2.5 mg /3 mL (more content not included)... Normal [facility] XR CHEST 2V FRONTAL/LATon XR CHEST 2V [...] an approximately 2 cm left perihilar mass [employer] Operations Engineer: CHRISTY Transcribe Date/Time: Jan 26 2025 1:53P Dictated by : RAJIV DONOVAN MD This examination was interpreted and the report reviewed and electronically signed by: RAJIV DONOVAN MD on Jan 26 2025 1:58PM EST [id number] CN Normal [facility] XR Chest PA and Lateralon IMPRESSION: 1. Stable findings of underlying interstitial lung disease. 2. Redemonstration of an approximately 2 cm left perihilar mass [employer] Operations Engineer: CHRISTY Transcribe Date/Time: Jan 26 2025 1:53P Dictated by : RAJIV DONOVAN MD This examination was interpreted and the report reviewed and electronically signed by: RAJIV DONOVAN MD on Jan 26 2025 1:58PM [facility] DIVISION OF RADIOLOGY * * *Final [...] the upper abdomen. DIVISION OF RADIOLOGY Provider, [facility] - 01/26/2025 * * *Final Report* * [...] an approximately 2 cm left perihilar mass [employer] Operations Engineer: CHRISTY Transcribe Date/Time: Jan 26 2025 1:53P Dictated by : RAJIV DONOVAN MD This examination was interpreted and the report reviewed and electronically signed by: RAJIV DONOVAN MD on Jan 26 2025 1:58PM EST [facility] Radiology Study observation (narrative) Anant schneider [facility] XR Chest PA and LateralOrder ed By: [facility] Provider on 01-26-2025 [facility] CNOVon 01-13-2025 CNOV Office Visit (FAMPWS) BETSY RODRIGEZ ([id number]) 1955 F Date Time Provider Department 01/13/25 9:20 AM GIRISH LEMOS FAMPWS During your visit today, we recorded the following information about you: Pulse Respiration Blood pressure Weight 72/minute 16/minute 104/60 62.1 kg Girish Lemos MD 01/13/2025 10:35 AM Signed Chief Complaint Patient presents with: Hospital F/U HPI Betys Rodrigez is a 69 year old female who presents here today for Hospital discharge follow up. Patient admitted to [facility] from 01/09 to 01/10 for complaint [...] 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 Johnson Dysphagia Dr. 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) Obesity (BMI 30.0-34.9) Other pulmonary embolism without acute cor pulmonale (HCC) Pneumonia due to [facility]- virus Requiring intubation Small cell lung cancer [...] Known Problems Brother Stroke Maternal Grandmother or [place], patient unsure Coronary Artery Disease Maternal Grandfather Alcohol abuse Paternal Grandfather Patient Allergies ALLERGIES Allergen Reactions Meagan Inhibitors Rash Codeine Vomiting, Other: See Comments Headache Remeron [Mirtazapin* Other: See Comments Fatigue Wjqtkhd-Djb-Gru Red* Myalgia Buckner Unknown Zetia [Ezetimibe] Myalgia Current Medications Current [...] by trina (more content not included)... Normal [facility] Absolute lymphocyte countOrd ered By: Estrella Cabezas on 01-10-2025 Lymphocytes Auto (Unsp spec) [#/Vol] 1.88 10*3/uL 0.83-4.51 [facility] Absolute neutrophil countOrd ered By: Estrella Cabezas on 01-10-2025 Neutrophils (Bld) [#/Vol] 43.6 10*3/uL High 2.0-7.7 [facility] Anion gap in Serum or Plasma Ordered By: Estrella Cabezas on 01-10-2025 Anion gap [Moles/Vol] 11 mmol/L 5-15 [facility] BUN/creatinine ratioOrdered By: Estrella Cabezas on 01-10-2025 Urea nitrogen/Creatinine [Mass ratio] 21.6 mg/mg High 10- [facility] Basic Metabolic Profile (BMP )on 01-10-2025 BUN/CRE 21.6 RATIO High 07-06 [facility] Comment on above: Performed By: #### L 500.2500, L100.0100 ####[facility] [address] [place], [address] Calcium [Mass/Vol] 8.5 mg/dL Normal 7.6-11.0 [facility] Comment on above: Performed By: #### L 500.2500, L100.0100 ####[facility] [address] [place], [address] Chloride [Moles/Vol] 104 mmol/L Normal 98-108 [facility] Comment on above: Performed By: #### L 500.2500, L100.0100 ####[facility] [address] [place], [address] CO2 [Moles/Vol] 26.7 mmol/L Normal 21.0-32.0 [facility] Comment on above: Performed By: #### L 500.2500, L100.0100 ####[facility] [address] [place], [address] Creatinine [Mass/Vol] 0.87 mg/dL Normal 0.70-1.20 [facility] Comment on above: Performed By: #### L 500.2500, L100.0100 ####[facility] [address] [place], [address] ECRCL 54.90 ml/min Normal 50-250 [facility] Comment on above: Performed By: #### L 500.2500, L100.0100 ####[facility] [address] [place], [address] GAP 11 Normal 5-15 [facility] Comment on above: Performed By: #### L 500.2500, L100.0100 ####[facility] [address] [place], [address] GFR/1.73 sq M.predicted among non-blacks MDRD (S/P/Bld) [Vol rate/Area] 72 mL/min/{1.73_m2} Normal >60 [facility] Comment on above: Result Comment: mL/m in/1.73m2 CKD-EPI Creatinine Equation (2020) Performed By: #### L 500.2500, L100.0100 ####[facility] [address] [place], [address] Glucose [Mass/Vol] 77 mg/dL Normal 70-99 [facility] Comment on above: Performed By: #### L 500.2500, L100.0100 ####[facility] [address] [place], [address] Potassium [Moles/Vol] 3.9 mmol/L Normal 3.3-5.1 [facility] Comment on above: Performed By: #### L 500.2500, L100.0100 ####[facility] [address] [place], [address] Sodium [Moles/Vol] 142 mmol/L Normal 133-145 [facility] Comment on above: Performed By: #### L 500.2500, L100.0100 ####[facility] [address] [place], [address] Urea nitrogen [Mass/Vol] 19 mg/dL Normal 4-19 [facility] Comment on above: Performed By: #### L 500.2500, L100.0100 ####[facility] [address] [place], [address] Bedside Glucoseon 01-10-2025 FINGERSTICK GLU 75 mg/dL Normal 74-106 [facility] Comment on above: Result Comment: FABRIZIO GEMENT OF PATIENT CARE PER NURSING PROTOCOL Performed By: #### L 501.080 ####[facility] [address] [place], [address] FINGERSTICK GLU 116 mg/dL High 74-106 [facility] Comment on above: Result Comment: FABRIZIO GEMENT OF PATIENT CARE PER NURSING PROTOCOL Performed By: #### L 501.080 ####[facility] [address] [place], [address] Blood band neutrophil count as percentage of total leukocytesOrdered By: Estrella Cabezas on 01-10-2025 Band form neutrophils/100 WBC (Bld) 1 % 0-5 [facility] Blood lymphocytes/100 leukoc ytesOrdered By: Estrella Cabezas on 01-10-2025 Lymphocytes/100 WBC (Bld) 4 % Low 19-41 [facility] Blood metamyelocytes/100 isa kocytesOrdered By: Estrella Cabezas on 01-10-2025 Metamyelocytes/100 WBC (Bld) 2 % High 0-1 [facility] Blood monocytes/100 leukocyt esOrdered By: Estrella Cabezas on 01-10-2025 Monocytes/100 WBC (Bld) 1 % 0-10 [facility] Blood segmented neutrophils/ 100 leukocytesOrdered By: Estrella Cabezas on 01-10-2025 Segmented neutrophils/100 WBC (Bld) 92 % High 47-70 [facility] COVID 19 AG RAPID (ROSANA Ayers)on 01-10-2025 SARS-CoV-2 (COVID-19) RNA DEBBY+probe Ql (Unsp spec) Normal [facility] Comment on above: Performed By: #### M 100.505 ####[facility] [address] [place], [place], [id number] Carbon dioxide, total [Moles /volume] in Central venous bloodOrdered By: Estrella Cabezas on 01-10-2025 CO2 [Moles/Vol] 26.7 mmol/L 21.0-32.0 [facility] Cells counted Molgen (Bld/Ti ss) [#]Ordered By: Estrella Cabezas on 01-10-2025 Differential Total Cells Counted 100 MANUAL DIFF [facility] Chloride assayOrdered By: David Cabezas on 01-10-2025 Chloride [Moles/Vol] 104 mmol/L 98-108 [facility] Discharge Instructionon 12-17 Discharge Instruction Normal [facility] Echocardiogram study reportO rdered By: Santi Hurd on 01-10-2025 Study report [facility] [address] [place] [address] Echo Complete 01/10/25 0851 MR#: [id number] Acct: [id number] Name: BETSY RODRIGEZ Rep #:[id number] : 1955 69 From: Santi Hurd MD Attending Dr: Dr. Jassi Borden MD Status: ADM FARIBA Ordering Dr: Estrella Cabezas MD Date: Location: [facility] Sex: F C Admitted: 01/09/25 Reason For [...] Lemos MD; Dr. Estrella Cabezas MD; Dr. Jsasi Borden MD ~ Date Dictated: 01/10/25 0851 Date Transcribed: 01/10/25 1130 [employer] Operations Engineer: Signed [facility] Work Phone: [phone] Erythrocyte distribution wid th (RBC) [Ratio]Ordered By: Estrella Cabezas on 01-10-2025 Erythrocyte distribution width (RBC) [Entitic vol] 59.4 fL High 35.1-43.9 [facility] Erythrocyte distribution wid th ratioOrdered By: Estrella Cabezas on 01-10-2025 Erythrocyte distribution width (RBC) [Ratio] 18.6 % High 11.6-14.6 [facility] Erythrocyte distribution wid th standard deviationOrdered By: Estrella Cabezas on 01-10-2025 Erythrocyte distribution width (RBC) [Ratio] 59.4 fl High 35.1-43.9 [facility] Estimation of creatinine lubna aranceOrdered By: Estrella Cabezas on 01-10-2025 Estimated Creatinine Clearance Calc 54.90 ml/min 50-250 [facility] GFR/1.73 sq M.predicted mary g non-blacks MDRD (S/P/Bld) [Vol rate/Area]Ordered By: Estrella Cabezas on 01-10-2025 Estimated GFR (MDRD) Non-Af Amer 72 >60 [facility] Comment on above: mL/min/1.73m2 CKD-EP I Creatinine Equation (2020) Glomerular filtration rate ( GFR) estimation/1.73 sq m using serum, plasma, or whole bOrdered By: Estrella Cabezas on 01-10-2025 GFR/1.73 sq M.predicted among non-blacks MDRD (S/P/Bld) [Vol rate/Area] 72 mL/min/{1.73_m2} >60 [facility] Comment on above: mL/min/1.73m2 CKD-EP I Creatinine Equation (2020) Glucose measurement at bedsi deOrdered By: Estrella Cabezas on 01-10-2025 Bedside Glucose (Misc Panel) 75 mg/dL 74-106 [facility] Comment on above: MANAGEMENT OF PATIEN T CARE PER NURSING PROTOCOL Glucose [Mass/Vol] 75 mg/dL 74-106 [facility] Comment on above: MANAGEMENT OF PATIEN T CARE PER NURSING PROTOCOL Hematocrit Auto (Bld) [Volum e fraction]Ordered By: Estrella Cabezas on 01-10-2025 Hematocrit (Bld) [Volume fraction] 30.9 % Low 37-47 [facility] Hemoglobin measurementOrdere d By: Estrella Cabezas on 01-10-2025 Hemoglobin (Bld) [Mass/Vol] 10.4 g/dL Low 12.0-15.0 [facility] Lymphocytes Auto (Unsp spec) [#/Vol]Ordered By: Estrella Cabezas on 01-10-2025 Lymphocytes (Bld) [#/Vol] 1.88 10*3/uL 0.83-4.51 [facility] MCV (mean corpuscular volume ) determinationOrdered By: Estrella Cabezas on 01-10-2025 MCV (RBC) [Entitic vol] 89.0 fL 81-99 [facility] Mean corpuscular hemoglobin (MCH) determinationOrdered By: Estrella Cabezas on 01-10-2025 MCH (RBC) [Entitic mass] 30.0 pg 27.0-32.0 [facility] Mean corpuscular hemoglobin concentration (MCHC) determinationOrdered By: Estrella Cabezas on 01-10-2025 MCHC (RBC) [Mass/Vol] 33.7 g/dL 32-36 [facility] Mean platelet volume determi nationOrdered By: Estrella Cabezas on 01-10-2025 Platelet mean volume (Bld) [Entitic vol] 9.8 fL 6.2-12.0 [facility] Neutrophil percentageOrdered By: Estrella Cabezas on 01-10-2025 Neutrophils (%) (Auto) Not Reportable [facility] Pathologist review Scott (Unsp spec) [Interp]Ordered By: Estrella Cabezas on 01-10-2025 Differential Pathologist's Review May anastasia [facility] Platelet countOrdered By: David Cabezas on 01-10-2025 Platelets (Bld) [#/Vol] 419 10*3/uL 150-450 [facility] Platelet estimateOrdered By: Estrella Cabezas on 01-10-2025 Platelets LM Ql (Bld) [facility] Platelets LM Ql (Bld)Ordered By: Estrella Cabezas on 01-10-2025 Platelet Estimate A [facility] Potassium (Unsp spec) [Mass/ Vol]Ordered By: Estrella Cabezas on 01-10-2025 Potassium [Moles/Vol] 3.9 mmol/L 3.3-5.1 [facility] Potassium measurement (mass/ volume)Ordered By: Estrella Cabezas on 01-10-2025 Potassium (Unsp spec) [Mass/Vol] 3.9 mmol/L 3.3-5.1 [facility] RBC Auto (Bld) [#/Vol]Ordere d By: Estrella Cabezas on 01-10-2025 RBC (Bld) [#/Vol] 3.47 10*6/uL Low 4.2-5.4 [facility] Review by pathologistOrdered By: Estrlela Cabezas on 01-10-2025 Pathologist review Scott (Unsp spec) [Interp] Marah oconnor [facility] Pathologist review Scott (Unsp spec) [Interp] Reviewed [facility] Comment on above: Previous reported re sult: Marah oconnor Edited by: ELGIN on 02/05/25:1614SEE REPORT IN PATIENT'S EMR AMENDED REPORT 02/05/25 1614 PATH REV previously reported as: Marah oconnor Segmented neutrophils/100 WB C (Bld)Ordered By: Estrella Cabezas on 01-10-2025 Neutrophils/100 WBC (Bld) 92 % High 47-70 [facility] Serum creatinine measurement (mass/volume)Ordered By: Estrella Cabezas on 01-10-2025 Creatinine [Mass/Vol] 0.87 mg/dL 0.70-1.20 [facility] Serum glucose measurement (m ass/volume)Ordered By: Estrella Cabezas on 01-10-2025 Glucose [Mass/Vol] 77 mg/dL 70-99 [facility] Serum or plasma calcium jayro urement (mass/volume)Ordered By: Estrella Cabezas on 01-10-2025 Calcium [Mass/Vol] 8.5 mg/dL 7.6-11.0 [facility] Serum or plasma urea nitroge n measurement (mass/volume)Ordered By: Estrella Cabezas on 01-10-2025 Urea nitrogen [Mass/Vol] 19 mg/dL 4-19 [facility] Sodium levelOrdered By: Kenia Cabezas on 01-10-2025 Sodium [Moles/Vol] 142 mmol/L 133-145 [facility] Total cell countOrdered By: Estrella Cabezas on 01-10-2025 Cells counted Molgen (Bld/Tiss) [#] 100 MANUAL DIFF [facility] White blood cell (WBC) count Ordered By: Estrella Cabezas on 01-10-2025 WBC (Bld) [#/Vol] 46.9 10*3/uL High 4.4-11.0 [facility] Comment on above: CRITICAL VALUE MAIN D TO [id number]/26/25 0548 Tobi Yousif.RESULTS READ BACK BY SAME. 12 Lead EKGon 01-09-2025 12 Lead EKG Normal [facility] Automated lymphocyte count a s percentage of total leukocytesOrdered By: Austin Mack on 01-09-2025 Lymphocytes/100 WBC Auto (Unsp spec) 4.7 % Low 19-41 [facility] Basic Metabolic Profile (BMP )on 01-09-2025 BUN/CRE 25.5 RATIO High 10-20 [facility] Comment on above: Performed By: #### L 100.0100, L500.2500, L501.4021 ####[facility] [address] [place], [address] Calcium [Mass/Vol] 8.8 mg/dL Normal 7.6-11.0 [facility] Comment on above: Performed By: #### L 100.0100, L500.2500, L501.4021 ####[facility] [address] [place], [address] Chloride [Moles/Vol] 107 mmol/L Normal 98-108 [facility] Comment on above: Performed By: #### L 100.0100, L500.2500, L501.4021 ####[facility] [address] [place], [address] CO2 [Moles/Vol] 20.1 mmol/L Low 21.0-32.0 [facility] Comment on above: Performed By: #### L 100.0100, L500.2500, L501.4021 ####[facility] [address] [place], [address] Creatinine [Mass/Vol] 0.67 mg/dL Low 0.70-1.20 [facility] Comment on above: Performed By: #### L 100.0100, L500.2500, L501.4021 ####[facility] [address] [place], [address] ECRCL 61.24 ml/min Normal 50-250 [facility] Comment on above: Performed By: #### L 100.0100, L500.2500, L501.4021 ####[facility] [address] [place], [address] GAP 14 Normal 5-15 [facility] Comment on above: Performed By: #### L 100.0100, L500.2500, L501.4021 ####[facility] [address] [place], [address] GFR/1.73 sq M.predicted among non-blacks MDRD (S/P/Bld) [Vol rate/Area] 94 mL/min/{1.73_m2} Normal >60 [facility] Comment on above: Result Comment: mL/m in/1.73m2 CKD-EPI Creatinine Equation (2020) Performed By: #### L 100.0100, L500.2500, L501.4021 ####[facility] [address] [place], [address] Glucose [Mass/Vol] 64 mg/dL Low 70-99 [facility] Comment on above: Performed By: #### L 100.0100, L500.2500, L501.4021 ####[facility] [address] [place], [address] Potassium [Moles/Vol] 3.6 mmol/L Normal 3.3-5.1 [facility] Comment on above: Performed By: #### L 100.0100, L500.2500, L501.4021 ####[facility] [address] [place], [address] Sodium [Moles/Vol] 141 mmol/L Normal 133-145 [facility] Comment on above: Performed By: #### L 100.0100, L500.2500, L501.4021 ####[facility] [address] [place], [address] Urea nitrogen [Mass/Vol] 17 mg/dL Normal 4-19 [facility] Comment on above: Performed By: #### L 100.0100, L500.2500, L501.4021 ####[facility] [address] [place], [address] Basophil percentageOrdered B y: Austin Mack on 01-09-2025 Basophils/100 WBC (Bld) 0.1 % 0-1 [facility] CBC W/Diff, Automatedon 12-17 PLT EST SLT INC Normal ADEQ [facility] Comment on above: Performed By: #### L 100.0100, L500.2500, L501.4021 ####[facility] [address] [place], [address] COVID-19 virus antigen assay Ordered By: Estrella Cabezas on 01-09-2025 SARS-CoV-2 (COVID-19) Ag IA.rapid Ql (Resp) [facility] Chest 1 View (Portable)on Chest 1 View (Portable) Normal [facility] Echo Completeon 01-09-2025 Echo Complete Normal [facility] Emergency Department Summary on 01-09-2025 Emergency Department Summary Normal [facility] Eosinophil percentageOrdered By: Austin Mack on 01-09-2025 Eosinophils/100 WBC (Bld) 0.0 % 0-5 [facility] H AND P Exam - Hospitaliston 01-09-2025 H&P Exam - Hospitalist Normal [facility] Immature granulocytes/100 WB C Auto (Bld)Ordered By: Austin Mack on 01-09-2025 Immature granulocytes/100 WBC (Bld) 1.800 % High 0.0-0.9 [facility] Comment on above: IG% - Immature Granu locytes (promyelocytes, myelocytes and metamyelocytes) > 1% indicates that a LEFT SHIFT is Present. L499.0042on 01-09-2025 Trop T High Sen 19 ng/L High <=14 [facility] Comment on above: Performed By: #### L 499.0042 ####[facility] [address] [place], [address] L499.0043on 01-09-2025 Trop T High Sen 13 ng/L Normal <=14 [facility] Comment on above: Performed By: #### L 499.0043 ####[facility] [address] [place], [address] L501.4021on 01-09-2025 Trop T High Sen 12 ng/L Normal <=14 [facility] Comment on above: Performed By: #### L 100.0100, L500.2500, L501.4021 ####[facility] [address] [place], [address] L503.7505on 01-09-2025 Natriuretic peptide B (Bld) [Mass/Vol] 3119 pg/mL High <=900 [facility] Comment on above: Result Comment: Hear t Failure Unlikely: < 300 pg/mLHeart Failure Likely< 50 Years: > 450 pg/mL50-75 Years: > 900 pg/mL>75 Years: > 1800 pg/mL Performed By: #### L 503.7505 ####[facility] [address] [place], [address] Lymphocytes/100 WBC Auto (Un sp spec)Ordered By: Austin Mack on 01-09-2025 Lymphocytes/100 WBC (Bld) 4.7 % Low 19-41 [facility] Monocyte percentageOrdered B y: Austin Mack on 01-09-2025 Monocytes/100 WBC (Bld) 0.2 % 0-10 [facility] Natriuretic peptide.B prohor milan N-Terminal [Mass/Vol]Ordered By: Austin Mack on 01-09-2025 Natriuretic peptide B (Bld) [Mass/Vol] 3119 pg/mL High <900 [facility] Comment on above: Heart Failure Unlike ly: < 300 pg/mLHeart Failure Likely< 50 Years: > 450 pg/mL50-75 Years: > 900 pg/mL>75 Years: > 1800 pg/mL Natriuretic peptide.B prohor milan N-Terminal [Mass/volume] in Serum or PlasmaOrdered By: Austin Mack on 01-09-2025 Natriuretic peptide.B prohormone N-Terminal [Mass/Vol] 3119 pg/mL High <900 [facility] Comment on above: Heart Failure Unlike ly: < 300 pg/mLHeart Failure Likely< 50 Years: > 450 pg/mL50-75 Years: > 900 pg/mL>75 Years: > 1800 pg/mL Nucleated red blood cell per centageOrdered By: Austin Mack on 01-09-2025 Nucleated RBC/100 WBC (Bld) [Ratio] 0 % 0-5 [facility] RESPIRATORY PANEL MOLECULARo n 01-09-2025 RP PANEL Normal [facility] Comment on above: Performed By: #### M 100.638 ####[facility] [address] [place], [address] Respiratory pathogens DNA an d RNA panel DEBBY+probe (Resp)Ordered By: Estrella Cabezas on 01-09-2025 Respiratory Panel (PCR) [facility] Respiratory pathogens detect ion panel by molecular detection methodOrdered By: Estrella Cabezas on 01-09-2025 Respiratory pathogens DNA and RNA panel DEBBY+probe (Resp) [facility] SARS-CoV-2 (COVID-19) Ag IA. rapid Ql (Resp)Ordered By: Estrella Cabezas on 01-09-2025 SARS-CoV-2 Antigen (Rapid) [facility] Troponin T.cardiac High sens itivity method [Mass/Vol]Ordered By: Austin Mack on 01-09-2025 Troponin T High Sensitivity 4 Hour 13 ng/L <14 [facility] Troponin T High Sensitivity 2 Hour 19 ng/L High <14 [facility] Troponin T High Sensitivity 12 ng/L <14 [facility] Troponin T.cardiac [Mass/vol ume] in Serum or Plasma by High sensitivity methodOrdered By: Austni Mack on 01-09-2025 Troponin T.cardiac High sensitivity method [Mass/Vol] 13 ng/L <14 [facility] Troponin T.cardiac High sensitivity method [Mass/Vol] 19 ng/L High <14 [facility] Troponin T.cardiac High sensitivity method [Mass/Vol] 12 ng/L <14 [facility] Absolute neutrophil countOrd ered By: Sherice Fernandez on 01-06-2025 Neutrophils (Bld) [#/Vol] 5.9 10*3/uL 2.0-7.7 [facility] Anion gap in Serum or Plasma Ordered By: Sherice Fernandez on 01-06-2025 Anion gap [Moles/Vol] 13 mmol/L 5-15 [facility] BUN/creatinine ratioOrdered By: Sherice Fernandez on 01-06-2025 Urea nitrogen/Creatinine [Mass ratio] 7.9 mg/mg Low 10-20 [facility] Basophil percentageOrdered B y: Sherice Fernandez on 01-06-2025 Basophils/100 WBC (Bld) 0.7 % 0-1 [facility] Bilirubin, totalOrdered By: Sherice Fernandez on 01-06-2025 Bilirubin [Mass/Vol] 0.62 mg/dL 0.00-1.30 [facility] Blood manual differential co mment interpretation (narrative result)Ordered By: Sherice Fernandez on 01-06-2025 Manual differential comment Scott (Bld) [Interp] SCANNED [facility] Comment on above: MONOCYTOSIS NOTED CBC W/Diff, Automatedon 12-17 PATH REV Reviewed Normal [facility] Comment on above: Result Comment: SEE REPORT IN PATIENT'S EMR AMENDED REPORT 01/06/25 1328 PATH REV previously reported as: January Performed By: #### L 501.5200, L500.2500, L100.0100, L501.2300 ####[facility] [address] [place], [address] Absolute Lymph 1.05 X10 3/uL Normal 0.83-4.51 [facility] Comment on above: Performed By: #### L 506.0400, L100.0100, L501.9520, L501.5200, L501.2300, L500.4050 ####[facility] [address] [place], [address] Absolute Neut 5.9 X10 3/uL Normal 2.0-7.7 [facility] Comment on above: Performed By: #### L 506.0400, L100.0100, L501.9520, L501.5200, L501.2300, L500.4050 ####[facility] [address] [place], [address] Basophils/100 WBC (Bld) 0.7 % Normal 0-1 [facility] Comment on above: Performed By: #### L 506.0400, L100.0100, L501.9520, L501.5200, L501.2300, L500.4050 ####[facility] [address] [place], [address] Eosinophils/100 WBC (Bld) 0.3 % Normal 0-5 [facility] Comment on above: Performed By: #### L 506.0400, L100.0100, L501.9520, L501.5200, L501.2300, L500.4050 ####[facility] [address] [place], [address] Erythrocyte distribution width (RBC) [Ratio] 18.2 % High 11.6-14.6 [facility] Comment on above: Performed By: #### L 506.0400, L100.0100, L501.9520, L501.5200, L501.2300, L500.4050 ####[facility] [address] [place], [address] Hematocrit (Bld) [Volume fraction] 33.1 % Low 37-47 [facility] Comment on above: Performed By: #### L 506.0400, L100.0100, L501.9520, L501.5200, L501.2300, L500.4050 ####[facility] [address] [place], [address] Hemoglobin (Bld) [Mass/Vol] 10.8 g/dL Low 12.0-15.0 [facility] Comment on above: Performed By: #### L 506.0400, L100.0100, L501.9520, L501.5200, L501.2300, L500.4050 ####[facility] [address] [place], [address] IG% 1.100 High 0.0-0.9 [facility] Comment on above: Result Comment: IG% - Immature Granulocytes (promyelocytes, myelocytes andmetamyelocytes) > 1% indicates that a LEFT SHIFT is Present. Performed By: #### L 506.0400, L100.0100, L501.9520, L501.5200, L501.2300, L500.4050 ####[facility] [address] [place], [address] Lymphocytes/100 WBC (Bld) 11.7 % Low 19-41 [facility] Comment on above: Performed By: #### L 506.0400, L100.0100, L501.9520, L501.5200, L501.2300, L500.4050 ####[facility] [address] [place], [address] MCH (RBC) [Entitic mass] 29.3 pg Normal 27.0-32.0 [facility] Comment on above: Performed By: #### L 506.0400, L100.0100, L501.9520, L501.5200, L501.2300, L500.4050 ####[facility] [address] [place], [address] MCHC (RBC) [Mass/Vol] 32.6 g/dL Normal 32-36 [facility] Comment on above: Performed By: #### L 506.0400, L100.0100, L501.9520, L501.5200, L501.2300, L500.4050 ####[facility] [address] [place], [address] MCV (RBC) [Entitic vol] 89.9 fL Normal 81-99 [facility] Comment on above: Performed By: #### L 506.0400, L100.0100, L501.9520, L501.5200, L501.2300, L500.4050 ####[facility] [address] [place], [address] Monocytes/100 WBC (Bld) 20.0 % High 0-10 [facility] Comment on above: Performed By: #### L 506.0400, L100.0100, L501.9520, L501.5200, L501.2300, L500.4050 ####[facility] [address] [place], [address] Neutrophils/100 WBC (Bld) 66.2 % Normal 47-70 [facility] Comment on above: Performed By: #### L 506.0400, L100.0100, L501.9520, L501.5200, L501.2300, L500.4050 ####[facility] [address] [place], [address] Nucleated RBC (Bld) [#/Vol] 0 10*3/uL Normal 0-5 [facility] Comment on above: Performed By: #### L 506.0400, L100.0100, L501.9520, L501.5200, L501.2300, L500.4050 ####[facility] [address] [place], [address] Platelet mean volume (Bld) [Entitic vol] 9.9 fL Normal 6.2-12.0 [facility] Comment on above: Performed By: #### L 506.0400, L100.0100, L501.9520, L501.5200, L501.2300, L500.4050 ####[facility] [address] [place], [address] Platelets (Bld) [#/Vol] 483 10*3/uL High 150-450 [facility] Comment on above: Performed By: #### L 506.0400, L100.0100, L501.9520, L501.5200, L501.2300, L500.4050 ####[facility] [address] [place], [address] RBC (Bld) [#/Vol] 3.68 10*6/uL Low 4.2-5.4 [facility] Comment on above: Performed By: #### L 506.0400, L100.0100, L501.9520, L501.5200, L501.2300, L500.4050 ####[facility] [address] [place], [address] RDW SD 59.6 fl High 35.1-43.9 [facility] Comment on above: Performed By: #### L 506.0400, L100.0100, L501.9520, L501.5200, L501.2300, L500.4050 ####[facility] [address] [place], [address] WBC (Bld) [#/Vol] 9.0 10*3/uL Normal 4.4-11.0 [facility] Comment on above: Performed By: #### L 506.0400, L100.0100, L501.9520, L501.5200, L501.2300, L500.4050 ####[facility] [address] [place], [address] Carbon dioxide, total [Moles /volume] in Central venous bloodOrdered By: Sherice Fernandez on 01-06-2025 CO2 [Moles/Vol] 24.3 mmol/L 21.0-32.0 [facility] Chloride assayOrdered By: Melva Fernandez on 01-06-2025 Chloride [Moles/Vol] 105 mmol/L 98-108 [facility] Comprehensive Metabolic Prof ilon 01-06-2025 Albumin [Mass/Vol] 3.2 g/dL Low 3.4-4.8 [facility] Comment on above: Performed By: #### L 506.0400, L100.0100, L501.9520, L501.5200, L501.2300, L500.4050 ####[facility] [address] [place], [address] Albumin/Globulin [Mass ratio] 0.8 {ratio} Low 0.9-2.4 [facility] Comment on above: Performed By: #### L 506.0400, L100.0100, L501.9520, L501.5200, L501.2300, L500.4050 ####[facility] [address] [place], [address] ALK PHOS 269 U/L High 35-104 [facility] Comment on above: Performed By: #### L 506.0400, L100.0100, L501.9520, L501.5200, L501.2300, L500.4050 ####[facility] [address] [place], [address] ALT [Catalytic activity/Vol] 28 U/L Normal <=34 [facility] Comment on above: Performed By: #### L 506.0400, L100.0100, L501.9520, L501.5200, L501.2300, L500.4050 ####[facility] [address] [place], [address] AST [Catalytic activity/Vol] 77 U/L High <=31 [facility] Comment on above: Performed By: #### L 506.0400, L100.0100, L501.9520, L501.5200, L501.2300, L500.4050 ####[facility] [address] [place], [address] Bilirubin [Mass/Vol] 0.62 mg/dL Normal 0.00-1.30 [facility] Comment on above: Performed By: #### L 506.0400, L100.0100, L501.9520, L501.5200, L501.2300, L500.4050 ####[facility] [address] [place], [address] BUN/CRE 7.9 RATIO Low 10-20 [facility] Comment on above: Performed By: #### L 506.0400, L100.0100, L501.9520, L501.5200, L501.2300, L500.4050 ####[facility] [address] [place], [address] Calcium [Mass/Vol] 8.8 mg/dL Normal 7.6-11.0 [facility] Comment on above: Performed By: #### L 506.0400, L100.0100, L501.9520, L501.5200, L501.2300, L500.4050 ####[facility] [address] [place], [address] Chloride [Moles/Vol] 105 mmol/L Normal 98-108 [facility] Comment on above: Performed By: #### L 506.0400, L100.0100, L501.9520, L501.5200, L501.2300, L500.4050 ####[facility] [address] [place], [address] CO2 [Moles/Vol] 24.3 mmol/L Normal 21.0-32.0 [facility] Comment on above: Performed By: #### L 506.0400, L100.0100, L501.9520, L501.5200, L501.2300, L500.4050 ####[facility] [address] [place], [address] Creatinine [Mass/Vol] 0.77 mg/dL Normal 0.70-1.20 [facility] Comment on above: Performed By: #### L 506.0400, L100.0100, L501.9520, L501.5200, L501.2300, L500.4050 ####[facility] [address] [place], [address] ECRCL 54.13 ml/min Normal 50-250 [facility] Comment on above: Performed By: #### L 506.0400, L100.0100, L501.9520, L501.5200, L501.2300, L500.4050 ####[facility] [address] [place], [address] GAP 13 Normal 5-15 [facility] Comment on above: Performed By: #### L 506.0400, L100.0100, L501.9520, L501.5200, L501.2300, L500.4050 ####[facility] [address] [place], [address] GFR/1.73 sq M.predicted among non-blacks MDRD (S/P/Bld) [Vol rate/Area] 83 mL/min/{1.73_m2} Normal >60 [facility] Comment on above: Result Comment: mL/m in/1.73m2 CKD-EPI Creatinine Equation (2021) Performed By: #### L 506.0400, L100.0100, L501.9520, L501.5200, L501.2300, L500.4050 ####[facility] [address] [place], [address] Globulin (S) [Mass/Vol] 4.0 g/dL Normal 2.2-4.2 [facility] Comment on above: Performed By: #### L 506.0400, L100.0100, L501.9520, L501.5200, L501.2300, L500.4050 ####[facility] [address] [place], [address] Glucose [Mass/Vol] 126 mg/dL High 70-99 [facility] Comment on above: Performed By: #### L 506.0400, L100.0100, L501.9520, L501.5200, L501.2300, L500.4050 ####[facility] [address] [place], [address] Potassium [Moles/Vol] 4.4 mmol/L Normal 3.3-5.1 [facility] Comment on above: Performed By: #### L 506.0400, L100.0100, L501.9520, L501.5200, L501.2300, L500.4050 ####[facility] [address] [place], [address] Sodium [Moles/Vol] 142 mmol/L Normal 133-145 [facility] Comment on above: Performed By: #### L 506.0400, L100.0100, L501.9520, L501.5200, L501.2300, L500.4050 ####[facility] [address] [place], [address] T PROT 7.2 g/dL Normal 5.9-8.4 [facility] Comment on above: Performed By: #### L 506.0400, L100.0100, L501.9520, L501.5200, L501.2300, L500.4050 ####[facility] [address] [place], [place], [id number] Urea nitrogen [Mass/Vol] 6 mg/dL Normal 4-19 [facility] Comment on above: Performed By: #### L 506.0400, L100.0100, L501.9520, L501.5200, L501.2300, L500.4050 ####[facility] [address] [place], [place], [id number] Eosinophil percentageOrdered By: Sherice Fernandez on 01-06-2025 Eosinophils/100 WBC (Bld) 0.3 % 0-5 [facility] Erythrocyte distribution wid th (RBC) [Ratio]Ordered By: Sherice Fernandez on 01-06-2025 Erythrocyte distribution width (RBC) [Entitic vol] 59.6 fL High 35.1-43.9 [facility] Erythrocyte distribution wid th ratioOrdered By: [facility] on 01-[facility]25 Erythrocyte distribution width (RBC) [Ratio] 18.2 % High 11.6-14.6 [facility] Estimation of creatinine lubna aranceOrdered By: Sherice Fernandez on 01-06-2025 Estimated Creatinine Clearance Calc 54.13 ml/min 50-250 [facility] GFR/1.73 sq M.predicted mary g non-blacks MDRD (S/P/Bld) [Vol rate/Area]Ordered By: Sherice Fernandez on 01-06-2025 Estimated GFR (MDRD) Non-Af Amer 83 >60 [facility] Comment on above: mL/min/1.73m2 CKD-EP I Creatinine Equation (2020) Hematocrit Auto (Bld) [Volum e fraction]Ordered By: Sherice Fernandez on 01-06-2025 Hematocrit (Bld) [Volume fraction] 33.1 % Low 37-47 [facility] Hemoglobin measurementOrdere d By: Sherice Fernandez on 01-06-2025 Hemoglobin (Bld) [Mass/Vol] 10.8 g/dL Low 12.0-15.0 [facility] Immature granulocytes/100 WB C Auto (Bld)Ordered By: Sherice Fernandez on 01-06-2025 Immature granulocytes/100 WBC (Bld) 1.100 % High 0.0-0.9 [facility] Comment on above: IG% - Immature Granu locytes (promyelocytes, myelocytes and metamyelocytes) > 1% indicates that a LEFT SHIFT is Present. Laboratory - Chemistry and C hemistry - challengeOrdered By: Sherice Fernandez on 01-06-2025 AST [Catalytic activity/Vol] 77 U/L High <32 [facility] Lymphocytes Auto (Unsp spec) [#/Vol]Ordered By: Sheriec Fernandez on 01-06-2025 Lymphocytes (Bld) [#/Vol] 1.05 10*3/uL 0.83-4.51 [facility] Lymphocytes/100 WBC Auto (Un sp spec)Ordered By: Sherice Fernandez on 01-06-2025 Lymphocytes/100 WBC (Bld) 11.7 % Low 19-41 [facility] MCV (mean corpuscular volume ) determinationOrdered By: Sherice Fernandez on 01-06-2025 MCV (RBC) [Entitic vol] 89.9 fL 81-99 [facility] Magnesiumon 01-06-2025 Magnesium [Mass/Vol] 1.5 mg/dL Normal 1.5-2.2 [facility] Comment on above: Performed By: #### L 506.0400, L100.0100, L501.9520, L501.5200, L501.2300, L500.4050 ####[facility] [address] [place], [place], [id number] Magnesium (Unsp spec) [Mass/ Vol]Ordered By: Sherice Fernandez on 01-06-2025 Magnesium [Mass/Vol] 1.5 mg/dL 1.5-2.2 [facility] Manual differential comment Scott (Bld) [Interp]Ordered By: Sherice Fernandez on 01-06-2025 Differential Comment SCANNED [facility] Comment on above: MONOCYTOSIS NOTED Mean corpuscular hemoglobin (MCH) determinationOrdered By: Sherice Fernandez on 01-06-2025 MCH (RBC) [Entitic mass] 29.3 pg 27.0-32.0 [facility] Mean corpuscular hemoglobin concentration (MCHC) determinationOrdered By: Sherice Fernandez on 01-06-2025 MCHC (RBC) [Mass/Vol] 32.6 g/dL 32-36 [facility] Mean platelet volume determi nationOrdered By: Sherice Fernandez on 01-06-2025 Platelet mean volume (Bld) [Entitic vol] 9.9 fL 6.2-12.0 [facility] Monocyte percentageOrdered B y: Sherice Fernandez on 01-06-2025 Monocytes/100 WBC (Bld) 20.0 % High 0-10 [facility] Neutrophil percentageOrdered By: Sherice Fernandez on 01-06-2025 Neutrophils/100 WBC (Bld) 66.2 % 47-70 [facility] Nucleated red blood cell per centageOrdered By: Sherice Fernandez on 01-06-2025 Nucleated RBC/100 WBC (Bld) [Ratio] 0 % 0-5 [facility] Oncology Visit Reporton 12-17 Oncology Visit Report Normal [facility] Phosphoruson 01-06-2025 Phosphate [Mass/Vol] 3.9 mg/dL Normal 2.7-4.5 [facility] Comment on above: Performed By: #### L 506.0400, L100.0100, L501.9520, L501.5200, L501.2300, L500.4050 ####[facility] [address] [place], [address] Platelet countOrdered By: Melva Fernandez on 01-06-2025 Platelets (Bld) [#/Vol] 483 10*3/uL High 150-450 [facility] Potassium (Unsp spec) [Mass/ Vol]Ordered By: Sherice Fernandez on 01-06-2025 Potassium [Moles/Vol] 4.4 mmol/L 3.3-5.1 [facility] RBC Auto (Bld) [#/Vol]Ordere d By: Sherice Fernandez on 01-06-2025 RBC (Bld) [#/Vol] 3.68 10*6/uL Low 4.2-5.4 [facility] Serum creatinine measurement (mass/volume)Ordered By: Sherice Fernandez on 01-06-2025 Creatinine [Mass/Vol] 0.77 mg/dL 0.70-1.20 [facility] Serum globulin measurementOr dered By: Sherice Fernandez on 01-06-2025 Globulin (S) [Mass/Vol] 4.0 g/dL 2.2-4.2 [facility] Serum glucose measurement (m ass/volume)Ordered By: Sherice Fernandez on 01-06-2025 Glucose [Mass/Vol] 126 mg/dL High 70-99 [facility] Serum or plasma alanine encarnacion otransferase (ALT) measurementOrdered By: Sherice Fernandez on 01-06-2025 ALT [Catalytic activity/Vol] 28 U/L <35 [facility] Serum or plasma albumin jayro urement (mass/volume)Ordered By: Sherice Fernandez on 01-06-2025 Albumin [Mass/Vol] 3.2 g/dL Low 3.4-4.8 [facility] Serum or plasma albumin/glob ulin mass ratioOrdered By: Sherice Fernandez on 01-06-2025 Albumin/Globulin [Mass ratio] 0.8 {ratio} Low 0.9-2.4 [facility] Serum or plasma alkaline lukas sphatase measurementOrdered By: Sherice Fernandez on 01-06-2025 ALP [Catalytic activity/Vol] 269 U/L High 35-104 [facility] Serum or plasma calcium jayro urement (mass/volume)Ordered By: Sherice Fernandez on 01-06-2025 Calcium [Mass/Vol] 8.8 mg/dL 7.6-11.0 [facility] Serum or plasma urea nitroge n measurement (mass/volume)Ordered By: Sherice Fernandez on 01-06-2025 Urea nitrogen [Mass/Vol] 6 mg/dL 4-19 [facility] Serum phosphorus measurement Ordered By: Sherice Fernandez on 01-06-2025 Phosphorus Level 3.9 mg/dL 2.7-4.5 [facility] Sodium levelOrdered By: Carmella Fernandez on 01-06-2025 Sodium [Moles/Vol] 142 mmol/L 133-145 [facility] T4 Free Directon 01-06-2025 T4 FREE DIRECT 1.20 ng/dL Normal 0.76-1.46 [facility] Comment on above: Performed By: #### L 506.0400, L100.0100, L501.9520, L501.5200, L501.2300, L500.4050 ####[facility] [address] [place], [place], [id number] T4 freeOrdered By: Sherice burciaga on 01-06-2025 Free T4 [Mass/Vol] 1.20 ng/dL 0.76-1.46 [facility] TSH DL <= 0.005 mIU/L QnOrde red By: Sherice Fernandez on 01-06-2025 Thyroid Stimulating Hormone (TSH) 1.820 uIU/mL 0.300-4.200 [facility] Thyroid Stim Hormone (TSH)on 01-06-2025 TSH 1.820 uIU/mL Normal 0.300-4.200 [facility] Comment on above: Performed By: #### L 506.0400, L100.0100, L501.9520, L501.5200, L501.2300, L500.4050 ####[facility] [id number] [place], [address] Total proteinOrdered By: Nain Fernandez on 01-06-2025 Protein [Mass/Vol] 7.2 g/dL 5.9-8.4 [facility] White blood cell (WBC) count Ordered By: Sherice Fernandez on 01-06-2025 WBC (Bld) [#/Vol] 9.0 10*3/uL 4.4-11.0 [facility] CBC W/Diff, Automatedon 12-16 PATH REV N/A Normal [facility] Comment on above: Result Comment: AMENDED REPORT 12/30/24 1406 PATH REV previously reported as: January Performed By: #### L 100.0100, L500.4050 ####[facility] [id number] [place], [address] Blood band neutrophil count as percentage of total leukocytesOrdered By: Sharda Audie on 12-29-2024 Band form neutrophils/100 WBC (Bld) 11 % High 0-5 [facility] Blood lymphocytes/100 leukoc ytesOrdered By: Sharda Audie on 12-29-2024 Lymphocytes/100 WBC (Bld) 12 % Low 19-41 [facility] Blood metamyelocytes/100 isa kocytesOrdered By: Sharda Audie on 12-29-2024 Metamyelocytes/100 WBC (Bld) 3 % High 0-1 [facility] Blood monocytes/100 leukocyt esOrdered By: Sharda Audie on 12-29-2024 Monocytes/100 WBC (Bld) 16 % High 0-10 [facility] Blood segmented neutrophils/ 100 leukocytesOrdered By: Sharda Audie on 12-29-2024 Segmented neutrophils/100 WBC (Bld) 57 % 47-70 [facility] Cells counted Molgen (Bld/Ti ss) [#]Ordered By: Sharda Audie on 12-29-2024 Differential Total Cells Counted 100 MANUAL DIFF [facility] Comprehensive Metabolic Prof ilon 12-29-2024 Albumin [Mass/Vol] 3.3 g/dL Low 3.4-4.8 [facility] Comment on above: Performed By: #### L 100.0100, L500.4050 ####[facility] [address] [place], [address] Albumin/Globulin [Mass ratio] 1.0 {ratio} Normal 0.9-2.4 [facility] Comment on above: Performed By: #### L 100.0100, L500.4050 ####[facility] [address] [place], [address] ALK PHOS 418 U/L High 35-104 [facility] Comment on above: Performed By: #### L 100.0100, L500.4050 ####[facility] [address] [place], [address] ALT [Catalytic activity/Vol] 44 U/L High <=34 [facility] Comment on above: Performed By: #### L 100.0100, L500.4050 ####[facility] [address] [place], [address] AST [Catalytic activity/Vol] 98 U/L High <=31 [facility] Comment on above: Performed By: #### L 100.0100, L500.4050 ####[facility] [address] [place], [address] Bilirubin [Mass/Vol] 0.65 mg/dL Normal 0.00-1.30 [facility] Comment on above: Performed By: #### L 100.0100, L500.4050 ####[facility] [address] [place], [address] BUN/CRE 11.3 RATIO Normal 10-20 [facility] Comment on above: Performed By: #### L 100.0100, L500.4050 ####[facility] [address] [place], [address] Calcium [Mass/Vol] 8.9 mg/dL Normal 7.6-11.0 [facility] Comment on above: Performed By: #### L 100.0100, L500.4050 ####[facility] [address] [place], [address] Chloride [Moles/Vol] 101 mmol/L Normal 98-108 [facility] Comment on above: Performed By: #### L 100.0100, L500.4050 ####[facility] [address] [place], [address] CO2 [Moles/Vol] 24.3 mmol/L Normal 21.0-32.0 [facility] Comment on above: Performed By: #### L 100.0100, L500.4050 ####[facility] [address] [place], [address] Creatinine [Mass/Vol] 0.75 mg/dL Normal 0.70-1.20 [facility] Comment on above: Performed By: #### L 100.0100, L500.4050 ####[facility] [address] [place], [address] ECRCL 59.65 ml/min Normal 50-250 [facility] Comment on above: Performed By: #### L 100.0100, L500.4050 ####[facility] [address] [place], [address] GAP 12 Normal 5-15 [facility] Comment on above: Performed By: #### L 100.0100, L500.4050 ####[facility] [address] [place], [address] GFR/1.73 sq M.predicted among non-blacks MDRD (S/P/Bld) [Vol rate/Area] 86 mL/min/{1.73_m2} Normal >60 [facility] Comment on above: Result Comment: mL/m in/1.73m2 CKD-EPI Creatinine Equation (2020) Performed By: #### L 100.0100, L500.4050 ####[facility] [address] [place], [address] Globulin (S) [Mass/Vol] 3.2 g/dL Normal 2.2-4.2 [facility] Comment on above: Performed By: #### L 100.0100, L500.4050 ####[facility] [address] [place], [address] Glucose [Mass/Vol] 168 mg/dL High 70-99 [facility] Comment on above: Performed By: #### L 100.0100, L500.4050 ####[facility] [address] [place], [address] Potassium [Moles/Vol] 4.2 mmol/L Normal 3.3-5.1 [facility] Comment on above: Performed By: #### L 100.0100, L500.4050 ####[facility] [address] [place], [address] Sodium [Moles/Vol] 137 mmol/L Normal 133-145 [facility] Comment on above: Performed By: #### L 100.0100, L500.4050 ####[facility] [address] [place], [address] T PROT 6.5 g/dL Normal 5.9-8.4 [facility] Comment on above: Performed By: #### L 100.0100, L500.4050 ####[facility] [address] [place], [address] Urea nitrogen [Mass/Vol] 8 mg/dL Normal 4-19 [facility] Comment on above: Performed By: #### L 100.0100, L500.4050 ####[facility] [address] [place], [address] Myelocyte %Ordered By: Sharda Bronson on 12-29-2024 Myelocytes/100 WBC (Bld) 1 % High 0-0 [facility] Oncology Visit Reporton 12-16 Oncology Visit Report Normal [facility] Pathologist review Scott (Unsp spec) [Interp]Ordered By: Sharda Bronson on 12-29-2024 Differential Pathologist's Review N/A [facility] Comment on above: Previous reported re sult: Marah oconnor Edited by: HARDIK on 12/30/24:1406 AMENDED REPORT 12/30/24 1406 PATH REV previously reported as: January anastasia Platelet estimateOrdered By: Sharda Bronson on 12-29-2024 Platelets LM Ql (Bld) MOD DEC ADEQ [facility] Platelets LM Ql (Bld)Ordered By: Sharda Bronson on 12-29-2024 Platelet Estimate MOD DEC ADEQ [facility] Review by pathologistOrdered By: Sharda Bronson on 12-29-2024 Pathologist review Scott (Unsp spec) [Interp] N/A [facility] Comment on above: Previous reported re sult: Marah anastasia Edited by: HARDIK on 12/30/24:1406 AMENDED REPORT 12/30/24 1406 PATH REV previously reported as: Marah anastasia Segmented neutrophils/100 WB C (Bld)Ordered By: Sharda Bronson on 12-29-2024 Neutrophils/100 WBC (Bld) 57 % 47-70 [facility] Total cell countOrdered By: Sharda Bronson on 12-29-2024 Cells counted Molgen (Bld/Tiss) [#] 100 MANUAL DIFF [facility] Surgery Visit Reporton 12-22 Surgery Visit Report Normal [facility] CBC W/Diff, Automatedon PATH REV N/A Normal [facility] Comment on above: Result Comment: AMENDED REPORT 12/21/24 1428 PATH REV previously reported as: Marah oconnor Performed By: #### L 506.0400, L501.2300, L500.4050, L501.9520, L501.5200, L100.0100 ####[facility] [address] [place], [address] CBC W/Diff, Automatedon Absolute Neut Normal 2.0-7.7 [facility] Comment on above: Result Comment: NO S PECIMENS COLLECTED. Performed By: #### L 500.4050, L100.0100 ####[facility] [address] [place], [address] HCT Normal 37-47 [facility] Comment on above: Result Comment: NO S PECIMENS COLLECTED. Performed By: #### L 500.4050, L100.0100 ####[facility] [address] [place], [address] HGB Normal 12.0-15.0 [facility] Comment on above: Result Comment: NO S PECIMENS COLLECTED. Performed By: #### L 500.4050, L100.0100 ####[facility] [address] [place], [address] MCH Normal 27.0-32.0 [facility] Comment on above: Result Comment: NO S PECIMENS COLLECTED. Performed By: #### L 500.4050, L100.0100 ####[facility] [address] [place], [address] MCHC Normal 32-36 [facility] Comment on above: Result Comment: NO S PECIMENS COLLECTED. Performed By: #### L 500.4050, L100.0100 ####[facility] [address] [place], [address] MCV Normal 81-99 [facility] Comment on above: Result Comment: NO S PECIMENS COLLECTED. Performed By: #### L 500.4050, L100.0100 ####[facility] [address] [place], [address] NEUT% Normal 47-70 [facility] Comment on above: Result Comment: NO S PECIMENS COLLECTED. Performed By: #### L 500.4050, L100.0100 ####[facility] [address] [place], [address] PLT Normal 150-450 [facility] Comment on above: Result Comment: NO S PECIMENS COLLECTED. Performed By: #### L 500.4050, L100.0100 ####[facility] [address] [place], [address] RBC Normal 4.2-5.4 [facility] Comment on above: Result Comment: NO S PECIMENS COLLECTED. Performed By: #### L 500.4050, L100.0100 ####[facility] [address] [place], [address] RDW CV Normal 11.6-14.6 [facility] Comment on above: Result Comment: NO S PECIMENS COLLECTED. Performed By: #### L 500.4050, L100.0100 ####[facility] [address] [place], [address] RDW SD Normal 35.1-43.9 [facility] Comment on above: Result Comment: NO S PECIMENS COLLECTED. Performed By: #### L 500.4050, L100.0100 ####[facility] [address] [place], [address] WBC Normal 4.4-11.0 [facility] Comment on above: Result Comment: NO S PECIMENS COLLECTED. Performed By: #### L 500.4050, L100.0100 ####[facility] [address] [place], [address] Comprehensive Metabolic Prof ilon 12-17-2024 ALB Normal 3.4-4.8 [facility] Comment on above: Result Comment: NO S PECIMENS COLLECTED Performed By: #### L 500.4050, L100.0100 ####[facility] [address] [place], [address] ALK PHOS Normal 35-104 [facility] Comment on above: Result Comment: NO S PECIMENS COLLECTED Performed By: #### L 500.4050, L100.0100 ####[facility] [address] [place], [address] ALT Normal <=34 [facility] Comment on above: Result Comment: NO S PECIMENS COLLECTED Performed By: #### L 500.4050, L100.0100 ####[facility] [address] [place], [address] AST Normal <=31 [facility] Comment on above: Result Comment: NO S PECIMENS COLLECTED Performed By: #### L 500.4050, L100.0100 ####[facility] [address] [place], [address] BUN Normal 4-19 [facility] Comment on above: Result Comment: NO S PECIMENS COLLECTED Performed By: #### L 500.4050, L100.0100 ####[facility] [address] [place], [address] BUN/CRE Normal 10-20 [facility] Comment on above: Result Comment: NO S PECIMENS COLLECTED Performed By: #### L 500.4050, L100.0100 ####[facility] [address] [place], [address] Calcium Normal 7.6-11.0 [facility] Comment on above: Result Comment: NO S PECIMENS COLLECTED Performed By: #### L 500.4050, L100.0100 ####[facility] [address] [place], [address] CL Normal 98-108 [facility] Comment on above: Result Comment: NO S PECIMENS COLLECTED Performed By: #### L 500.4050, L100.0100 ####[facility] [address] [place], [address] CO2 Normal 21.0-32.0 [facility] Comment on above: Result Comment: NO S PECIMENS COLLECTED Performed By: #### L 500.4050, L100.0100 ####[facility] [address] [place], [address] CREAT,SERUM Normal 0.70-1.20 [facility] Comment on above: Result Comment: NO S PECIMENS COLLECTED Performed By: #### L 500.4050, L100.0100 ####[facility] [address] [place], [address] eGFR Normal >60 [facility] Comment on above: Result Comment: NO S PECIMENS COLLECTED Performed By: #### L 500.4050, L100.0100 ####[facility] [address] [place], [address] GAP Normal 5-15 [facility] Comment on above: Result Comment: NO S PECIMENS COLLECTED Performed By: #### L 500.4050, L100.0100 ####[facility] [address] [place], [address] GLU Normal 70-99 [facility] Comment on above: Result Comment: NO S PECIMENS COLLECTED Performed By: #### L 500.4050, L100.0100 ####[facility] [address] [place], [address] Potassium Normal 3.3-5.1 [facility] Comment on above: Result Comment: NO S PECIMENS COLLECTED Performed By: #### L 500.4050, L100.0100 ####[facility] [address] [place], [address] T BILI Normal 0.00-1.30 [facility] Comment on above: Result Comment: NO S PECIMENS COLLECTED Performed By: #### L 500.4050, L100.0100 ####[facility] [address] [place], [address] T PROT Normal 5.9-8.4 [facility] Comment on above: Result Comment: NO S PECIMENS COLLECTED Performed By: #### L 500.4050, L100.0100 ####[facility] [address] [place], [address] Comprehensive Metabolic Profil Normal 133-145 [facility] Comment on above: Result Comment: NO S PECIMENS COLLECTED Performed By: #### L 500.4050, L100.0100 ####[facility] [address] [place], [address] Comprehensive Metabolic Prof ilon 12-16-2024 Albumin [Mass/Vol] 3.2 g/dL Low 3.4-4.8 [facility] Comment on above: Performed By: #### L 506.0400, L501.2300, L500.4050, L501.9520, L501.5200, L100.0100 ####[facility] [address] [place], [address] Albumin/Globulin [Mass ratio] 1.0 {ratio} Normal 0.9-2.4 [facility] Comment on above: Performed By: #### L 506.0400, L501.2300, L500.4050, L501.9520, L501.5200, L100.0100 ####[facility] [address] [place], [address] ALK PHOS 590 U/L High 35-104 [facility] Comment on above: Performed By: #### L 506.0400, L501.2300, L500.4050, L501.9520, L501.5200, L100.0100 ####[facility] [address] [place], [address] ALT [Catalytic activity/Vol] 47 U/L High <=34 [facility] Comment on above: Performed By: #### L 506.0400, L501.2300, L500.4050, L501.9520, L501.5200, L100.0100 ####[facility] [address] [place], [address] AST [Catalytic activity/Vol] 210 U/L High <=31 [facility] Comment on above: Performed By: #### L 506.0400, L501.2300, L500.4050, L501.9520, L501.5200, L100.0100 ####[facility] [address] [place], [address] Bilirubin [Mass/Vol] 1.24 mg/dL Normal 0.00-1.30 [facility] Comment on above: Performed By: #### L 506.0400, L501.2300, L500.4050, L501.9520, L501.5200, L100.0100 ####[facility] [address] [place], [address] BUN/CRE 7.8 RATIO Low 10-20 [facility] Comment on above: Performed By: #### L 506.0400, L501.2300, L500.4050, L501.9520, L501.5200, L100.0100 ####[facility] [address] [place], [address] Calcium [Mass/Vol] 8.8 mg/dL Normal 7.6-11.0 [facility] Comment on above: Performed By: #### L 506.0400, L501.2300, L500.4050, L501.9520, L501.5200, L100.0100 ####[facility] [address] [place], [address] Chloride [Moles/Vol] 104 mmol/L Normal 98-108 [facility] Comment on above: Performed By: #### L 506.0400, L501.2300, L500.4050, L501.9520, L501.5200, L100.0100 ####[facility] [address] [place], [address] CO2 [Moles/Vol] 21.3 mmol/L Normal 21.0-32.0 [facility] Comment on above: Performed By: #### L 506.0400, L501.2300, L500.4050, L501.9520, L501.5200, L100.0100 ####[facility] [address] [place], [address] Creatinine [Mass/Vol] 0.79 mg/dL Normal 0.70-1.20 [facility] Comment on above: Performed By: #### L 506.0400, L501.2300, L500.4050, L501.9520, L501.5200, L100.0100 ####[facility] [address] [place], [address] ECRCL 60.80 ml/min Normal 50-250 [facility] Comment on above: Performed By: #### L 506.0400, L501.2300, L500.4050, L501.9520, L501.5200, L100.0100 ####[facility] [address] [place], [address] GAP 14 Normal 5-15 [facility] Comment on above: Performed By: #### L 506.0400, L501.2300, L500.4050, L501.9520, L501.5200, L100.0100 ####[facility] [address] [place], [address] GFR/1.73 sq M.predicted among non-blacks MDRD (S/P/Bld) [Vol rate/Area] 81 mL/min/{1.73_m2} Normal >60 [facility] Comment on above: Result Comment: mL/m in/1.73m2 CKD-EPI Creatinine Equation (2020) Performed By: #### L 506.0400, L501.2300, L500.4050, L501.9520, L501.5200, L100.0100 ####[facility] [address] [place], [address] Globulin (S) [Mass/Vol] 3.2 g/dL Normal 2.2-4.2 [facility] Comment on above: Performed By: #### L 506.0400, L501.2300, L500.4050, L501.9520, L501.5200, L100.0100 ####[facility] [address] [place], [address] Glucose [Mass/Vol] 162 mg/dL High 70-99 [facility] Comment on above: Performed By: #### L 506.0400, L501.2300, L500.4050, L501.9520, L501.5200, L100.0100 ####[facility] [address] [place], [address] Potassium [Moles/Vol] 3.9 mmol/L Normal 3.3-5.1 [facility] Comment on above: Performed By: #### L 506.0400, L501.2300, L500.4050, L501.9520, L501.5200, L100.0100 ####[facility] [address] [place], [address] Sodium [Moles/Vol] 139 mmol/L Normal 133-145 [facility] Comment on above: Performed By: #### L 506.0400, L501.2300, L500.4050, L501.9520, L501.5200, L100.0100 ####[facility] [address] [place], [address] T PROT 6.4 g/dL Normal 5.9-8.4 [facility] Comment on above: Performed By: #### L 506.0400, L501.2300, L500.4050, L501.9520, L501.5200, L100.0100 ####[facility] [address] [place], [address] Urea nitrogen [Mass/Vol] 6 mg/dL Normal 4-19 [facility] Comment on above: Performed By: #### L 506.0400, L501.2300, L500.4050, L501.9520, L501.5200, L100.0100 ####[facility] [address] [place], [address] Magnesiumon 12-16-2024 Magnesium [Mass/Vol] 1.5 mg/dL Normal 1.5-2.2 [facility] Comment on above: Performed By: #### L 506.0400, L501.2300, L500.4050, L501.9520, L501.5200, L100.0100 ####[facility] [address] [place], [address] Oncology Visit Reporton Oncology Visit Report Normal [facility] Phosphoruson 12-16-2024 Phosphate [Mass/Vol] 3.1 mg/dL Normal 2.7-4.5 [facility] Comment on above: Performed By: #### L 506.0400, L501.2300, L500.4050, L501.9520, L501.5200, L100.0100 ####[facility] [address] [place], [address] T4 Free Directon 12-16-2024 T4 FREE DIRECT 1.40 ng/dL Normal 0.76-1.46 [facility] Comment on above: Performed By: #### L 506.0400, L501.2300, L500.4050, L501.9520, L501.5200, L100.0100 ####[facility] [address] [place], [address] Thyroid Stim Hormone (TSH)on 12-16-2024 TSH 5.070 uIU/mL High 0.300-4.200 [facility] Comment on above: Performed By: #### L 506.0400, L501.2300, L500.4050, L501.9520, L501.5200, L100.0100 ####[facility] [address] [place], [address] Chest 1 View (Portable)on Chest 1 View (Portable) Normal [facility] Discharge Instructionon 11-16 Discharge Instruction Normal [facility] MR/POSTOP.ANEon 12-12-2024 MR/POSTOP.ANE Normal [facility] MR/APMGMPEB4oj 12-12-2024 MR/POSTOPAN2 Normal [facility] Operative Reporton Operative Report Normal [facility] MR/PAT.ANEon 12-11-2024 MR/PAT.ANE Normal [facility] Surgery Visit Reporton 12-10 Surgery Visit Report Normal [facility] Absolute neutrophil countOrd ered By: Sherice Fernandez on 12-09-2024 Neutrophils (Bld) [#/Vol] 6.7 10*3/uL 2.0-7.7 [facility] Anion gap in Serum or Plasma Ordered By: Sherice Fernandez on 12-09-2024 Anion gap [Moles/Vol] 14 mmol/L 5-15 [facility] BUN/creatinine ratioOrdered By: Sherice Fernandez on 12-09-2024 Urea nitrogen/Creatinine [Mass ratio] 7.9 mg/mg Low 10-20 [facility] Basophil percentageOrdered B y: Sherice Fernandez on 12-09-2024 Basophils/100 WBC (Bld) 0.9 % 0-1 [facility] Bilirubin, totalOrdered By: Sherice Fernandez on 12-09-2024 Bilirubin [Mass/Vol] 1.84 mg/dL High 0.00-1.30 [facility] CBC W/Diff, Automatedon 11-16 PLT EST MOD DEC Normal ADEQ [facility] Comment on above: Performed By: #### L 501.2300, L100.0100, L501.5200 ####[facility] [address] [place], [address] SMEAR COMMENT SCANNED Normal [facility] Comment on above: Performed By: #### L 501.2300, L100.0100, L501.5200 ####[facility] [address] [place], [address] Carbon dioxide, total [Moles /volume] in Central venous bloodOrdered By: Sherice Fernandez on 12-09-2024 CO2 [Moles/Vol] 22.3 mmol/L 21.0-32.0 [facility] Chloride assayOrdered By: Melva Fernandez on 12-09-2024 Chloride [Moles/Vol] 102 mmol/L 98-108 [facility] Comprehensive Metabolic Prof ilon 12-09-2024 Albumin [Mass/Vol] 3.3 g/dL Low 3.4-4.8 [facility] Comment on above: Performed By: #### L 500.4050 ####[facility] [address] [place], [address] Albumin/Globulin [Mass ratio] 1.2 {ratio} Normal 0.9-2.4 [facility] Comment on above: Performed By: #### L 500.4050 ####[facility] [address] [place], [address] ALK PHOS 685 U/L High 35-104 [facility] Comment on above: Performed By: #### L 500.4050 ####[facility] [address] [place], [address] ALT [Catalytic activity/Vol] 88 U/L High <=34 [facility] Comment on above: Performed By: #### L 500.4050 ####[facility] [address] [place], [address] AST [Catalytic activity/Vol] 248 U/L High <=31 [facility] Comment on above: Performed By: #### L 500.4050 ####[facility] [address] [place], [address] Bilirubin [Mass/Vol] 1.84 mg/dL High 0.00-1.30 [facility] Comment on above: Performed By: #### L 500.4050 ####[facility] [address] [place], [address] BUN/CRE 7.9 RATIO Low 10-20 [facility] Comment on above: Performed By: #### L 500.4050 ####[facility] [address] [place], [address] Calcium [Mass/Vol] 8.9 mg/dL Normal 7.6-11.0 [facility] Comment on above: Performed By: #### L 500.4050 ####[facility] [address] [place], [address] Chloride [Moles/Vol] 102 mmol/L Normal 98-108 [facility] Comment on above: Performed By: #### L 500.4050 ####[facility] [address] [place], [address] CO2 [Moles/Vol] 22.3 mmol/L Normal 21.0-32.0 [facility] Comment on above: Performed By: #### L 500.4050 ####[facility] [address] [place], [address] Creatinine [Mass/Vol] 0.84 mg/dL Normal 0.70-1.20 [facility] Comment on above: Performed By: #### L 500.4050 ####[facility] [address] [place], [address] ECRCL 57.91 ml/min Normal 50-250 [facility] Comment on above: Performed By: #### L 500.4050 ####[facility] [address] [place], [address] GAP 14 Normal 5-15 [facility] Comment on above: Performed By: #### L 500.4050 ####[facility] [address] [place], [address] GFR/1.73 sq M.predicted among non-blacks MDRD (S/P/Bld) [Vol rate/Area] 75 mL/min/{1.73_m2} Normal >60 [facility] Comment on above: Result Comment: mL/m in/1.73m2 CKD-EPI Creatinine Equation (2020) Performed By: #### L 500.4050 ####[facility] [address] [place], [address] Globulin (S) [Mass/Vol] 2.9 g/dL Normal 2.2-4.2 [facility] Comment on above: Performed By: #### L 500.4050 ####[facility] [address] [place], [address] Glucose [Mass/Vol] 134 mg/dL High 70-99 [facility] Comment on above: Performed By: #### L 500.4050 ####[facility] [address] [place], [address] Potassium [Moles/Vol] 4.4 mmol/L Normal 3.3-5.1 [facility] Comment on above: Performed By: #### L 500.4050 ####[facility] [address] [place], [address] Sodium [Moles/Vol] 138 mmol/L Normal 133-145 [facility] Comment on above: Performed By: #### L 500.4050 ####[facility] [address] [place], [address] T PROT 6.2 g/dL Normal 5.9-8.4 [facility] Comment on above: Performed By: #### L 500.4050 ####[facility] [address] [place], [address] Urea nitrogen [Mass/Vol] 7 mg/dL Normal 4-19 [facility] Comment on above: Performed By: #### L 500.4050 ####[facility] [address] [place], [address] Eosinophil percentageOrdered By: Sherice Fernandez on 12-09-2024 Eosinophils/100 WBC (Bld) 0.1 % 0-5 [facility] Erythrocyte distribution wid th ratioOrdered By: Sherice Fernandez on 12-09-2024 Erythrocyte distribution width (RBC) [Ratio] 19.4 % High 11.6-14.6 [facility] Erythrocyte distribution wid th standard deviationOrdered By: [facility] on 12-09-2024 Erythrocyte distribution width (RBC) [Entitic vol] 59.1 fL High 35.1-43.9 [facility] Estimation of creatinine lubna aranceOrdered By: Sherice Fernandez on 12-09-2024 Estimated Creatinine Clearance Calc 57.91 ml/min 50-250 [facility] GFR/1.73 sq M.predicted mary g non-blacks MDRD (S/P/Bld) [Vol rate/Area]Ordered By: Sherice Fernandez on 12-09-2024 Estimated GFR (MDRD) Non-Af Amer 75 >60 [facility] Comment on above: mL/min/1.73m2 CKD-EP I Creatinine Equation (2020) Hematocrit Auto (Bld) [Volum e fraction]Ordered By: Sherice Fernandez on 12-09-2024 Hematocrit (Bld) [Volume fraction] 34.2 % Low 37-47 [facility] Hemoglobin measurementOrdere d By: Sherice Fernandez on 12-09-2024 Hemoglobin (Bld) [Mass/Vol] 11.4 g/dL Low 12.0-15.0 [facility] Immature granulocytes/100 WB C Auto (Bld)Ordered By: Sherice Fernandez on 12-09-2024 Immature granulocytes/100 WBC (Bld) 3.400 % High 0.0-0.9 [facility] Comment on above: IG% - Immature Granu locytes (promyelocytes, myelocytes and metamyelocytes) > 1% indicates that a LEFT SHIFT is Present. Laboratory - Chemistry and C hemistry - challengeOrdered By: Sherice Fernandez on 12-09-2024 AST [Catalytic activity/Vol] 248 U/L High <32 [facility] Lymphocytes Auto (Unsp spec) [#/Vol]Ordered By: Sherice Fernandez on 12-09-2024 Lymphocytes (Bld) [#/Vol] 1.01 10*3/uL 0.83-4.51 [facility] Lymphocytes/100 WBC Auto (Un sp spec)Ordered By: Sherice Fernandez on 12-09-2024 Lymphocytes/100 WBC (Bld) 11.0 % Low 19-41 [facility] MCV (mean corpuscular volume ) determinationOrdered By: Sherice Fernandez on 12-09-2024 MCV (RBC) [Entitic vol] 87.9 fL 81-99 [facility] Magnesiumon 12-09-2024 Magnesium [Mass/Vol] 1.4 mg/dL Low 1.5-2.2 [facility] Comment on above: Performed By: #### L 501.2300, L100.0100, L501.5200 ####[facility] [address] [place], [address] Magnesium (Unsp spec) [Mass/ Vol]Ordered By: Sherice Fernandez on 12-09-2024 Magnesium [Mass/Vol] 1.4 mg/dL Low 1.5-2.2 [facility] Manual differential comment Scott (Bld) [Interp]Ordered By: Sherice Fernandez on 12-09-2024 Differential Comment SCANNED [facility] Mean corpuscular hemoglobin (MCH) determinationOrdered By: Sherice Fernandez on 12-09-2024 MCH (RBC) [Entitic mass] 29.3 pg 27.0-32.0 [facility] Mean corpuscular hemoglobin concentration (MCHC) determinationOrdered By: Sherice Fernandez on 12-09-2024 MCHC (RBC) [Mass/Vol] 33.3 g/dL 32-36 [facility] Mean platelet volume determi nationOrdered By: Sherice Fernandez on 12-09-2024 Platelet mean volume (Bld) [Entitic vol] 11.8 fL 6.2-12.0 [facility] Monocyte percentageOrdered B y: Sherice Fernandez on 12-09-2024 Monocytes/100 WBC (Bld) 12.3 % High 0-10 [facility] Neutrophil percentageOrdered By: Sherice Fernandez on 12-09-2024 Neutrophils/100 WBC (Bld) 72.3 % High 47-70 [facility] Nucleated red blood cell per centageOrdered By: Sherice Fernandez on 12-09-2024 Nucleated RBC/100 WBC (Bld) [Ratio] 0.2 % 0-5 [facility] Oncology Visit Reporton 11-16 Oncology Visit Report Normal [facility] Phosphoruson 12-09-2024 Phosphate [Mass/Vol] 3.0 mg/dL Normal 2.7-4.5 [facility] Comment on above: Performed By: #### L 501.2300, L100.0100, L501.5200 ####[facility] [address] [place], [place], [address] Platelet countOrdered By: Melva Fernandez on 12-09-2024 Platelets (Bld) [#/Vol] 87 10*3/uL Low 150-450 [facility] Platelets LM Ql (Bld)Ordered By: Sherice Fernandez on 12-09-2024 Platelet Estimate MOD DEC ADEQ [facility] Potassium (Unsp spec) [Mass/ Vol]Ordered By: Sherice Fernandez on 12-09-2024 Potassium [Moles/Vol] 4.4 mmol/L 3.3-5.1 [facility] RBC Auto (Bld) [#/Vol]Ordere d By: Sherice Fernandez on 12-09-2024 RBC (Bld) [#/Vol] 3.89 10*6/uL Low 4.2-5.4 [facility] Serum creatinine measurement (mass/volume)Ordered By: Sherice Fernandez on 12-09-2024 Creatinine [Mass/Vol] 0.84 mg/dL 0.70-1.20 [facility] Serum globulin measurementOr dered By: Sherice Fernandez on 12-09-2024 Globulin (S) [Mass/Vol] 2.9 g/dL 2.2-4.2 [facility] Serum glucose measurement (m ass/volume)Ordered By: Sherice Fernandez on 12-09-2024 Glucose [Mass/Vol] 134 mg/dL High 70-99 [facility] Serum or plasma alanine encarnacion otransferase (ALT) measurementOrdered By: Sherice Fernandez on 12-09-2024 ALT [Catalytic activity/Vol] 88 U/L High <35 [facility] Serum or plasma albumin jayro urement (mass/volume)Ordered By: Sherice Fernandez on 12-09-2024 Albumin [Mass/Vol] 3.3 g/dL Low 3.4-4.8 [facility] Serum or plasma albumin/glob ulin mass ratioOrdered By: Sherice Fernandez on 12-09-2024 Albumin/Globulin [Mass ratio] 1.2 {ratio} 0.9-2.4 [facility] Serum or plasma alkaline lukas sphatase measurementOrdered By: Sherice Fernandez on 12-09-2024 ALP [Catalytic activity/Vol] 685 U/L High 35-104 [facility] Serum or plasma calcium jayro urement (mass/volume)Ordered By: Sherice Fernandez on 12-09-2024 Calcium [Mass/Vol] 8.9 mg/dL 7.6-11.0 [facility] Serum or plasma urea nitroge n measurement (mass/volume)Ordered By: Sherice Fernandez on 12-09-2024 Urea nitrogen [Mass/Vol] 7 mg/dL 4-19 [facility] Serum phosphorus measurement Ordered By: Sherice Fernandez on 12-09-2024 Phosphorus Level 3.0 mg/dL 2.7-4.5 [facility] Sodium levelOrdered By: Carmella Fernandez on 12-09-2024 Sodium [Moles/Vol] 138 mmol/L 133-145 [facility] Total proteinOrdered By: Nain Fernandez on 12-09-2024 Protein [Mass/Vol] 6.2 g/dL 5.9-8.4 [facility] White blood cell (WBC) count Ordered By: Sherice Fernandez on 12-09-2024 WBC (Bld) [#/Vol] 9.2 10*3/uL 4.4-11.0 [facility] Brain W/WO Contraston 2024 Brain W/WO Contrast Normal [facility] Magnetic resonance imaging r eportOrdered By: Dillon Mullen on 12-03-2024 Study report [facility] Imaging Services [address] [place] [address] Brain W/WO Contrast MR#: [id number] Acct: [id number] Name: BETSY RODRIGEZ Rep #: [id number] : 1955 F 69 From: Tasha Mullen MD PCP: Dr. Fabricio Lemos MD Status: REG CLI Study:Brain W/WO Contrast Date of Exam: 12/03/24 Exam# [id number] Ordering Dr: Sherice Fernandez MD PROCEDURE: BRAIN [...] 3. Additional description as above. Reading Location: [id number] CC: Dr. Fabricio Lemos MD; Dr. Sherice Fernandez MD ~ [employer]: Signed [facility] Basic Metabolic Profile (BMP )on 12-02-2024 BUN/CRE 20.6 RATIO High 10-20 [facility] Comment on above: Performed By: #### L 501.5200, L500.2500, L100.0100, L501.2300 ####[facility] [address] [place], [address] Calcium [Mass/Vol] 10.0 mg/dL Normal 7.6-11.0 [facility] Comment on above: Performed By: #### L 501.5200, L500.2500, L100.0100, L501.2300 ####[facility] [address] [place], [address] Chloride [Moles/Vol] 102 mmol/L Normal 98-108 [facility] Comment on above: Performed By: #### L 501.5200, L500.2500, L100.0100, L501.2300 ####[facility] [address] [place], [address] CO2 [Moles/Vol] 22.1 mmol/L Normal 21.0-32.0 [facility] Comment on above: Performed By: #### L 501.5200, L500.2500, L100.0100, L501.2300 ####[facility] [address] [place], [address] Creatinine [Mass/Vol] 0.95 mg/dL Normal 0.70-1.20 [facility] Comment on above: Performed By: #### L 501.5200, L500.2500, L100.0100, L501.2300 ####[facility] [address] [place], [address] ECRCL 52.76 ml/min Normal 50-250 [facility] Comment on above: Performed By: #### L 501.5200, L500.2500, L100.0100, L501.2300 ####[facility] [address] [place], [address] GAP 14 Normal 5-15 [facility] Comment on above: Performed By: #### L 501.5200, L500.2500, L100.0100, L501.2300 ####[facility] [address] [place], [address] GFR/1.73 sq M.predicted among non-blacks MDRD (S/P/Bld) [Vol rate/Area] 64 mL/min/{1.73_m2} Normal >60 [facility] Comment on above: Result Comment: mL/m in/1.73m2 CKD-EPI Creatinine Equation (2020) Performed By: #### L 501.5200, L500.2500, L100.0100, L501.2300 ####[facility] [address] [place], [address] Glucose [Mass/Vol] 167 mg/dL High 70-99 [facility] Comment on above: Performed By: #### L 501.5200, L500.2500, L100.0100, L501.2300 ####[facility] [address] [place], [address] Potassium [Moles/Vol] 4.3 mmol/L Normal 3.3-5.1 [facility] Comment on above: Performed By: #### L 501.5200, L500.2500, L100.0100, L501.2300 ####[facility] [address] [place], [address] Sodium [Moles/Vol] 138 mmol/L Normal 133-145 [facility] Comment on above: Performed By: #### L 501.5200, L500.2500, L100.0100, L501.2300 ####[facility] [address] [place], [place], [id number] Urea nitrogen [Mass/Vol] 20 mg/dL High 4-19 [facility] Comment on above: Performed By: #### L 501.5200, L500.2500, L100.0100, L501.2300 ####[facility] [address] [place], [place], [id number] Bilirubin directOrdered By: Sharda Bronson on 12-02-2024 Bilirubin.direct [Mass/Vol] 3.44 mg/dL High 0.00-0.30 [facility] Blood band neutrophil count as percentage of total leukocytesOrdered By: Sherice Fernandez on 12-02-2024 Band form neutrophils/100 WBC (Bld) 7 % High 0-5 [facility] Blood lymphocytes/100 leukoc ytesOrdered By: Sherice Fernandez on 12-02-2024 Lymphocytes/100 WBC (Bld) 10 % Low 19-41 [facility] Blood metamyelocytes/100 isa kocytesOrdered By: Sherice Fernandez on 12-02-2024 Metamyelocytes/100 WBC (Bld) 1 % 0-1 [facility] Blood monocytes/100 leukocyt esOrdered By: [facility] on 12-02-2024 Monocytes/100 WBC (Bld) 3 % 0-10 [facility] Cells counted Molgen (Bld/Ti ss) [#]Ordered By: Sherice Fernandez on 12-02-2024 Differential Total Cells Counted 100 MANUAL DIFF [facility] Erythrocyte morphology asses smentOrdered By: Sherice Fernandez on 12-02-2024 RBC morphology finding Nom (Bld) NORM C+C NORMAL NORM C&C [facility] Liver Profileon 12-02-2024 Albumin [Mass/Vol] 3.5 g/dL Normal 3.4-4.8 [facility] Comment on above: Order Comment: ADD O N TG4 5 J Performed By: #### L 500.3400 ####[facility] [address] [place], [address] ALK PHOS 648 U/L High 35-104 [facility] Comment on above: Order Comment: ADD O N TG4 5 J Performed By: #### L 500.3400 ####[facility] [address] [place], [address] ALT [Catalytic activity/Vol] 157 U/L High <=34 [facility] Comment on above: Order Comment: ADD O N TG4 5 J Performed By: #### L 500.3400 ####[facility] [address] [place], [address] AST [Catalytic activity/Vol] 408 U/L High <=31 [facility] Comment on above: Order Comment: ADD O N TG4 5 J Performed By: #### L 500.3400 ####[facility] [address] [place], [address] Bilirubin [Mass/Vol] 4.41 mg/dL High 0.00-1.30 [facility] Comment on above: Order Comment: ADD O N TG4 5 J Performed By: #### L 500.3400 ####[facility] [address] [place], [address] Bilirubin.direct [Mass/Vol] 3.44 mg/dL High 0.00-0.30 [facility] Comment on above: Order Comment: ADD O N TG4 5 J Performed By: #### L 500.3400 ####[facility] [address] [place], [address] Globulin (S) [Mass/Vol] 3.0 g/dL Normal 2.2-4.2 [facility] Comment on above: Order Comment: ADD O N TG4 5 J Performed By: #### L 500.3400 ####[facility] [address] [place], [address] T PROT 6.5 g/dL Normal 5.9-8.4 [facility] Comment on above: Order Comment: ADD O N TG4 5 J Performed By: #### L 500.3400 ####[facility] [address] [place], [address] Magnesiumon 12-02-2024 Magnesium [Mass/Vol] 1.4 mg/dL Low 1.5-2.2 [facility] Comment on above: Performed By: #### L 501.5200, L500.2500, L100.0100, L501.2300 ####[facility] [address] [place], [address] Oncology Visit Reporton 11-15 Oncology Visit Report Normal [facility] Pathologist review Scott (Unsp spec) [Interp]Ordered By: Sherice Fernandez on 12-02-2024 Differential Pathologist's Review May anastasia [facility] Phosphoruson 12-02-2024 Phosphate [Mass/Vol] 3.0 mg/dL Normal 2.7-4.5 [facility] Comment on above: Performed By: #### L 501.5200, L500.2500, L100.0100, L501.2300 ####[facility] [address] [place], [address] RBC morphology finding Nom ( Bld)Ordered By: Sherice Fernandez on 12-02-2024 Red Blood Cell Morphology NORM C+C NORMAL NORM C&C [facility] Segmented neutrophils/100 WB C (Bld)Ordered By: Sherice Fernandez on 12-02-2024 Neutrophils/100 WBC (Bld) 79 % High 47-70 [facility] CBC W/Diff, Automatedon 11-15 Absolute Neut Normal 2.0-7.7 [facility] Comment on above: Result Comment: PER JESSE NURSE CBCD NOT NEEDED Performed By: #### L 100.0100, L500.4050 ####[facility] [address] [place], [address] HCT Normal 37-47 [facility] Comment on above: Result Comment: PER JESSE NURSE CBCD NOT NEEDED Performed By: #### L 100.0100, L500.4050 ####[facility] [address] [place], [address] HGB Normal 12.0-15.0 [facility] Comment on above: Result Comment: PER JESSE NURSE CBCD NOT NEEDED Performed By: #### L 100.0100, L500.4050 ####[facility] [address] [place], [address] MCH Normal 27.0-32.0 [facility] Comment on above: Result Comment: PER JESSE NURSE CBCD NOT NEEDED Performed By: #### L 100.0100, L500.4050 ####[facility] [address] [place], [address] MCHC Normal 32-36 [facility] Comment on above: Result Comment: PER JESSE NURSE CBCD NOT NEEDED Performed By: #### L 100.0100, L500.4050 ####[facility] [address] [place], [address] MCV Normal 81-99 [facility] Comment on above: Result Comment: PER JESSE NURSE CBCD NOT NEEDED Performed By: #### L 100.0100, L500.4050 ####[facility] [address] [place], [address] NEUT% Normal 47-70 [facility] Comment on above: Result Comment: PER JESSE NURSE CBCD NOT NEEDED Performed By: #### L 100.0100, L500.4050 ####[facility] [address] [place], [address] PLT Normal 150-450 [facility] Comment on above: Result Comment: PER JESSE NURSE CBCD NOT NEEDED Performed By: #### L 100.0100, L500.4050 ####[facility] [address] [place], [address] RBC Normal 4.2-5.4 [facility] Comment on above: Result Comment: PER JESSE NURSE CBCD NOT NEEDED Performed By: #### L 100.0100, L500.4050 ####[facility] [address] [place], [address] RDW CV Normal 11.6-14.6 [facility] Comment on above: Result Comment: PER JESSE NURSE CBCD NOT NEEDED Performed By: #### L 100.0100, L500.4050 ####[facility] [address] [place], [address] RDW SD Normal 35.1-43.9 [facility] Comment on above: Result Comment: PER JESSE NURSE CBCD NOT NEEDED Performed By: #### L 100.0100, L500.4050 ####[facility] [address] [place], [address] WBC Normal 4.4-11.0 [facility] Comment on above: Result Comment: PER JESSE NURSE CBCD NOT NEEDED Performed By: #### L 100.0100, L500.4050 ####[facility] [address] [place], [address] Comprehensive Metabolic Prof txon 11-25-2024 Albumin [Mass/Vol] 3.5 g/dL Normal 3.4-4.8 [facility] Comment on above: Performed By: #### L 100.0100, L500.4050 ####[facility] [address] [place], [address] Albumin/Globulin [Mass ratio] 1.1 {ratio} Normal 0.9-2.4 [facility] Comment on above: Performed By: #### L 100.0100, L500.4050 ####[facility] [address] [place], [address] ALK PHOS 582 U/L High 35-104 [facility] Comment on above: Performed By: #### L 100.0100, L500.4050 ####[facility] [address] [place], [address] ALT [Catalytic activity/Vol] 159 U/L High <=34 [facility] Comment on above: Performed By: #### L 100.0100, L500.4050 ####[facility] [address] [place], [address] AST [Catalytic activity/Vol] 698 U/L High <=31 [facility] Comment on above: Performed By: #### L 100.0100, L500.4050 ####[facility] [address] [place], [address] Bilirubin [Mass/Vol] 3.65 mg/dL High 0.00-1.30 [facility] Comment on above: Performed By: #### L 100.0100, L500.4050 ####[facility] [address] [place], [address] BUN/CRE 15.4 RATIO Normal 10-20 [facility] Comment on above: Performed By: #### L 100.0100, L500.4050 ####[facility] [address] [place], [address] Calcium [Mass/Vol] 11.4 mg/dL High 7.6-11.0 [facility] Comment on above: Performed By: #### L 100.0100, L500.4050 ####[facility] [address] [place], [address] Chloride [Moles/Vol] 101 mmol/L Normal 98-108 [facility] Comment on above: Performed By: #### L 100.0100, L500.4050 ####[facility] [address] [place], [address] CO2 [Moles/Vol] 18.1 mmol/L Low 21.0-32.0 [facility] Comment on above: Performed By: #### L 100.0100, L500.4050 ####[facility] [address] [place], [address] Creatinine [Mass/Vol] 1.09 mg/dL Normal 0.70-1.20 [facility] Comment on above: Performed By: #### L 100.0100, L500.4050 ####[facility] [address] [place], [address] ECRCL 45.19 ml/min Low 50-250 [facility] Comment on above: Performed By: #### L 100.0100, L500.4050 ####[facility] [address] [place], [address] GAP 18 High 5-15 [facility] Comment on above: Performed By: #### L 100.0100, L500.4050 ####[facility] [address] [place], [address] GFR/1.73 sq M.predicted among non-blacks MDRD (S/P/Bld) [Vol rate/Area] 55 mL/min/{1.73_m2} Low >60 [facility] Comment on above: Result Comment: mL/m in/1.73m2 CKD-EPI Creatinine Equation (2020) Performed By: #### L 100.0100, L500.4050 ####[facility] [address] [place], [address] Globulin (S) [Mass/Vol] 3.1 g/dL Normal 2.2-4.2 [facility] Comment on above: Performed By: #### L 100.0100, L500.4050 ####[facility] [address] [place], [address] Glucose [Mass/Vol] 111 mg/dL High 70-99 [facility] Comment on above: Performed By: #### L 100.0100, L500.4050 ####[facility] [address] [place], [address] Potassium [Moles/Vol] 3.8 mmol/L Normal 3.3-5.1 [facility] Comment on above: Performed By: #### L 100.0100, L500.4050 ####[facility] [address] [place], [address] Sodium [Moles/Vol] 138 mmol/L Normal 133-145 [facility] Comment on above: Performed By: #### L 100.0100, L500.4050 ####[facility] [address] [place], [address] T PROT 6.5 g/dL Normal 5.9-8.4 [facility] Comment on above: Performed By: #### L 100.0100, L500.4050 ####[facility] [address] [place], [address] Urea nitrogen [Mass/Vol] 17 mg/dL Normal 4-19 [facility] Comment on above: Performed By: #### L 100.0100, L500.4050 ####[facility] [address] [place], [address] ALB Normal 3.4-4.8 [facility] Comment on above: Result Comment: THER E WAS TX PLAN DUPLICATED NEEDS Performed By: #### L 500.4050 ####[facility] [address] [place], [address] ALK PHOS Normal 35-104 [facility] Comment on above: Result Comment: THER E WAS TX PLAN DUPLICATED NEEDS Performed By: #### L 500.4050 ####[facility] [address] [place], [address] ALT Normal <=34 [facility] Comment on above: Result Comment: THER E WAS TX PLAN DUPLICATED NEEDS Performed By: #### L 500.4050 ####[facility] [address] [place], [address] AST Normal <=31 [facility] Comment on above: Result Comment: THER E WAS TX PLAN DUPLICATED NEEDS Performed By: #### L 500.4050 ####[facility] [address] [place], [address] BUN Normal 4-19 [facility] Comment on above: Result Comment: THER E WAS TX PLAN DUPLICATED NEEDS Performed By: #### L 500.4050 ####[facility] [address] [place], [address] BUN/CRE Normal 10-20 [facility] Comment on above: Result Comment: THER E WAS TX PLAN DUPLICATED NEEDS Performed By: #### L 500.4050 ####[facility] [address] [place], [address] Calcium Normal 7.6-11.0 [facility] Comment on above: Result Comment: THER E WAS TX PLAN DUPLICATED NEEDS Performed By: #### L 500.4050 ####[facility] [address] [place], [address] CL Normal 98-108 [facility] Comment on above: Result Comment: THER E WAS TX PLAN DUPLICATED NEEDS Performed By: #### L 500.4050 ####[facility] [address] [place], [address] CO2 Normal 21.0-32.0 [facility] Comment on above: Result Comment: THER E WAS TX PLAN DUPLICATED NEEDS Performed By: #### L 500.4050 ####[facility] [address] [place], [address] CREAT,SERUM Normal 0.70-1.20 [facility] Comment on above: Result Comment: THER E WAS TX PLAN DUPLICATED NEEDS Performed By: #### L 500.4050 ####[facility] [address] [place], [address] eGFR Normal >60 [facility] Comment on above: Result Comment: THER E WAS TX PLAN DUPLICATED NEEDS Performed By: #### L 500.4050 ####[facility] [address] [place], [address] GAP Normal 5-15 [facility] Comment on above: Result Comment: THER E WAS TX PLAN DUPLICATED NEEDS Performed By: #### L 500.4050 ####[facility] [address] [place], [address] GLU Normal 70-99 [facility] Comment on above: Result Comment: THER E WAS TX PLAN DUPLICATED NEEDS Performed By: #### L 500.4050 ####[facility] [address] [place], [address] Potassium Normal 3.3-5.1 [facility] Comment on above: Result Comment: THER E WAS TX PLAN DUPLICATED NEEDS Performed By: #### L 500.4050 ####[facility] [address] [place], [address] T BILI Normal 0.00-1.30 [facility] Comment on above: Result Comment: THER E WAS TX PLAN DUPLICATED NEEDS Performed By: #### L 500.4050 ####[facility] [address] [place], [address] T PROT Normal 5.9-8.4 [facility] Comment on above: Result Comment: THER E WAS TX PLAN DUPLICATED NEEDS Performed By: #### L 500.4050 ####[facility] [address] [place], [address] Comprehensive Metabolic Profil Normal 133-145 [facility] Comment on above: Result Comment: THER E WAS TX PLAN DUPLICATED NEEDS Performed By: #### L 500.4050 ####[facility] [address] [place], [address] CBC W/Diff, Automatedon 03- 0-5 Absolute Lymph 0.81 X10 3/uL Low 0.83-4.51 [facility] Comment on above: Performed By: #### L 100.0100, L500.4050 ####[facility] [address] [place], [address] Absolute Neut 6.9 X10 3/uL Normal 2.0-7.7 [facility] Comment on above: Performed By: #### L 100.0100, L500.4050 ####[facility] [address] [place], [address] Basophils/100 WBC (Bld) 0.4 % Normal 0-1 [facility] Comment on above: Performed By: #### L 100.0100, L500.4050 ####[facility] [address] [place], [address] Eosinophils/100 WBC (Bld) 0.1 % Normal 0-5 [facility] Comment on above: Performed By: #### L 100.0100, L500.4050 ####[facility] [address] [place], [address] Erythrocyte distribution width (RBC) [Ratio] 18.2 % High 11.6-14.6 [facility] Comment on above: Performed By: #### L 100.0100, L500.4050 ####[facility] [address] [place], [address] Hematocrit (Bld) [Volume fraction] 41.0 % Normal 37-47 [facility] Comment on above: Performed By: #### L 100.0100, L500.4050 ####[facility] [address] [place], [address] Hemoglobin (Bld) [Mass/Vol] 13.4 g/dL Normal 12.0-15.0 [facility] Comment on above: Performed By: #### L 100.0100, L500.4050 ####[facility] [address] [place], [address] IG% 0.700 Normal 0.0-0.9 [facility] Comment on above: Result Comment: IG% - Immature Granulocytes (promyelocytes, myelocytes andmetamyelocytes) > 1% indicates that a LEFT SHIFT is Present. Performed By: #### L 100.0100, L500.4050 ####[facility] [address] [place], [address] Lymphocytes/100 WBC (Bld) 9.0 % Low 19-41 [facility] Comment on above: Performed By: #### L 100.0100, L500.4050 ####[facility] [address] [place], [address] MCH (RBC) [Entitic mass] 28.6 pg Normal 27.0-32.0 [facility] Comment on above: Performed By: #### L 100.0100, L500.4050 ####[facility] [address] [place], [address] MCHC (RBC) [Mass/Vol] 32.7 g/dL Normal 32-36 [facility] Comment on above: Performed By: #### L 100.0100, L500.4050 ####[facility] [address] [place], [address] MCV (RBC) [Entitic vol] 87.4 fL Normal 81-99 [facility] Comment on above: Performed By: #### L 100.0100, L500.4050 ####[facility] [address] [place], [address] Monocytes/100 WBC (Bld) 13.4 % High 0-10 [facility] Comment on above: Performed By: #### L 100.0100, L500.4050 ####[facility] [address] [place], [address] Neutrophils/100 WBC (Bld) 76.4 % High 47-70 [facility] Comment on above: Performed By: #### L 100.0100, L500.4050 ####[facility] [address] [place], [address] Nucleated RBC (Bld) [#/Vol] 0.2 10*3/uL Normal 0-5 [facility] Comment on above: Performed By: #### L 100.0100, L500.4050 ####[facility] [address] [place], [address] Platelet mean volume (Bld) [Entitic vol] 11.3 fL Normal 6.2-12.0 [facility] Comment on above: Performed By: #### L 100.0100, L500.4050 ####[facility] [address] [place], [address] Platelets (Bld) [#/Vol] 340 10*3/uL Normal 150-450 [facility] Comment on above: Performed By: #### L 100.0100, L500.4050 ####[facility] [address] [place], [address] RBC (Bld) [#/Vol] 4.69 10*6/uL Normal 4.2-5.4 [facility] Comment on above: Performed By: #### L 100.0100, L500.4050 ####[facility] [address] [place], [address] RDW SD 56.8 fl High 35.1-43.9 [facility] Comment on above: Performed By: #### L 100.0100, L500.4050 ####[facility] [address] [place], [address] WBC (Bld) [#/Vol] 9.0 10*3/uL Normal 4.4-11.0 [facility] Comment on above: Performed By: #### L 100.0100, L500.4050 ####[facility] [address] [place], [address] Comprehensive Metabolic Prof ilon 11-24-2024 Albumin [Mass/Vol] 3.6 g/dL Normal 3.4-4.8 [facility] Comment on above: Performed By: #### L 100.0100, L500.4050 ####[facility] [address] [place], [address] Albumin/Globulin [Mass ratio] 1.1 {ratio} Normal 0.9-2.4 [facility] Comment on above: Performed By: #### L 100.0100, L500.4050 ####[facility] [address] [place], [address] ALK PHOS 606 U/L High 35-104 [facility] Comment on above: Performed By: #### L 100.0100, L500.4050 ####[facility] [address] [place], [address] ALT [Catalytic activity/Vol] 164 U/L High <=34 [facility] Comment on above: Performed By: #### L 100.0100, L500.4050 ####[facility] [address] [place], [address] AST [Catalytic activity/Vol] 675 U/L High <=31 [facility] Comment on above: Performed By: #### L 100.0100, L500.4050 ####[facility] [address] [place], [address] Bilirubin [Mass/Vol] 3.14 mg/dL High 0.00-1.30 [facility] Comment on above: Performed By: #### L 100.0100, L500.4050 ####[facility] [address] [place], [address] BUN/CRE 17.6 RATIO Normal 10-20 [facility] Comment on above: Performed By: #### L 100.0100, L500.4050 ####[facility] [address] [place], [address] Calcium [Mass/Vol] 11.8 mg/dL High 7.6-11.0 [facility] Comment on above: Performed By: #### L 100.0100, L500.4050 ####[facility] [address] [place], [address] Chloride [Moles/Vol] 100 mmol/L Normal 98-108 [facility] Comment on above: Performed By: #### L 100.0100, L500.4050 ####[facility] [address] [place], [address] CO2 [Moles/Vol] 21.0 mmol/L Normal 21.0-32.0 [facility] Comment on above: Performed By: #### L 100.0100, L500.4050 ####[facility] [address] [place], [address] Creatinine [Mass/Vol] 1.29 mg/dL High 0.70-1.20 [facility] Comment on above: Performed By: #### L 100.0100, L500.4050 ####[facility] [address] [place], [address] ECRCL 38.19 ml/min Low 50-250 [facility] Comment on above: Performed By: #### L 100.0100, L500.4050 ####[facility] [address] [place], [address] GAP 17 High 5-15 [facility] Comment on above: Performed By: #### L 100.0100, L500.4050 ####[facility] [address] [place], [address] GFR/1.73 sq M.predicted among non-blacks MDRD (S/P/Bld) [Vol rate/Area] 45 mL/min/{1.73_m2} Low >60 [facility] Comment on above: Result Comment: mL/m in/1.73m2 CKD-EPI Creatinine Equation (2020) Performed By: #### L 100.0100, L500.4050 ####[facility] [address] [place], [address] Globulin (S) [Mass/Vol] 3.2 g/dL Normal 2.2-4.2 [facility] Comment on above: Performed By: #### L 100.0100, L500.4050 ####[facility] [address] [place], [address] Glucose [Mass/Vol] 97 mg/dL Normal 70-99 [facility] Comment on above: Performed By: #### L 100.0100, L500.4050 ####[facility] [address] [place], [address] Potassium [Moles/Vol] 4.2 mmol/L Normal 3.3-5.1 [facility] Comment on above: Performed By: #### L 100.0100, L500.4050 ####[facility] [address] [place], [address] Sodium [Moles/Vol] 138 mmol/L Normal 133-145 [facility] Comment on above: Performed By: #### L 100.0100, L500.4050 ####[facility] [address] [place], [address] T PROT 6.8 g/dL Normal 5.9-8.4 [facility] Comment on above: Performed By: #### L 100.0100, L500.4050 ####[facility] [address] [place], [address] Urea nitrogen [Mass/Vol] 23 mg/dL High 4-19 [facility] Comment on above: Performed By: #### L 100.0100, L500.4050 ####[facility] [address] [place], [place], [address] Oncology Visit Reporton 11-15 Oncology Visit Report Normal [facility] Absolute lymphocyte countOrd ered By: Yenifer Patten on 11-23-2024 Lymphocytes Auto (Unsp spec) [#/Vol] 0.69 10*3/uL Low 0.83-4.51 [facility] Absolute neutrophil countOrd ered By: Yenifer Patten on 11-23-2024 Neutrophils (Bld) [#/Vol] 7.5 10*3/uL 2.0-7.7 [facility] Anion gap in Serum or Plasma Ordered By: Yenifer Patten on 11-23-2024 Anion gap [Moles/Vol] 18 mmol/L High 5-15 [facility] Automated lymphocyte count a s percentage of total leukocytesOrdered By: Yenifer Patten on 11-23-2024 Lymphocytes/100 WBC Auto (Unsp spec) 7.2 % Low 19-41 [facility] BUN/creatinine ratioOrdered By: Yenifer Patten on 11-23-2024 Urea nitrogen/Creatinine [Mass ratio] 18.3 mg/mg 10-20 [facility] Basophil percentageOrdered B y: Yenifer Patten on 11-23-2024 Basophils/100 WBC (Bld) 0.4 % 0-1 [facility] Bilirubin, totalOrdered By: Yenifer Patten on 11-23-2024 Bilirubin [Mass/Vol] 3.04 mg/dL High 0.00-1.30 [facility] CBC W/Diff, Automatedon 03-0 9-2025 Absolute Lymph 0.69 X10 3/uL Low 0.83-4.51 [facility] Comment on above: Performed By: #### L 501.2450, L100.0100, L500.4050 ####[facility] [address] [place], [address] Absolute Neut 7.5 X10 3/uL Normal 2.0-7.7 [facility] Comment on above: Performed By: #### L 501.2450, L100.0100, L500.4050 ####[facility] [address] [place], [address] Basophils/100 WBC (Bld) 0.4 % Normal 0-1 [facility] Comment on above: Performed By: #### L 501.2450, L100.0100, L500.4050 ####[facility] [address] [place], [address] Eosinophils/100 WBC (Bld) 0.1 % Normal 0-5 [facility] Comment on above: Performed By: #### L 501.2450, L100.0100, L500.4050 ####[facility] [address] [place], [address] Erythrocyte distribution width (RBC) [Ratio] 17.4 % High 11.6-14.6 [facility] Comment on above: Performed By: #### L 501.2450, L100.0100, L500.4050 ####[facility] [address] [place], [address] Hematocrit (Bld) [Volume fraction] 41.5 % Normal 37-47 [facility] Comment on above: Performed By: #### L 501.2450, L100.0100, L500.4050 ####[facility] [address] [place], [address] Hemoglobin (Bld) [Mass/Vol] 14.3 g/dL Normal 12.0-15.0 [facility] Comment on above: Performed By: #### L 501.2450, L100.0100, L500.4050 ####[facility] [address] [place], [address] IG% 0.700 Normal 0.0-0.9 [facility] Comment on above: Result Comment: IG% - Immature Granulocytes (promyelocytes, myelocytes andmetamyelocytes) > 1% indicates that a LEFT SHIFT is Present. Performed By: #### L 501.2450, L100.0100, L500.4050 ####[facility] [address] [place], [address] Lymphocytes/100 WBC (Bld) 7.2 % Low 19-41 [facility] Comment on above: Performed By: #### L 501.2450, L100.0100, L500.4050 ####[facility] [address] [place], [address] MCH (RBC) [Entitic mass] 29.8 pg Normal 27.0-32.0 [facility] Comment on above: Performed By: #### L 501.2450, L100.0100, L500.4050 ####[facility] [address] [place], [address] MCHC (RBC) [Mass/Vol] 34.5 g/dL Normal 32-36 [facility] Comment on above: Performed By: #### L 501.2450, L100.0100, L500.4050 ####[facility] [address] [place], [address] MCV (RBC) [Entitic vol] 86.5 fL Normal 81-99 [facility] Comment on above: Performed By: #### L 501.2450, L100.0100, L500.4050 ####[facility] [address] [place], [address] Monocytes/100 WBC (Bld) 13.0 % High 0-10 [facility] Comment on above: Performed By: #### L 501.2450, L100.0100, L500.4050 ####[facility] [address] [place], [address] Neutrophils/100 WBC (Bld) 78.6 % High 47-70 [facility] Comment on above: Performed By: #### L 501.2450, L100.0100, L500.4050 ####[facility] [address] [place], [address] Nucleated RBC (Bld) [#/Vol] 0.3 10*3/uL Normal 0-5 [facility] Comment on above: Performed By: #### L 501.2450, L100.0100, L500.4050 ####[facility] [address] [place], [address] Platelet mean volume (Bld) [Entitic vol] 11.5 fL Normal 6.2-12.0 [facility] Comment on above: Performed By: #### L 501.2450, L100.0100, L500.4050 ####[facility] [address] [place], [address] Platelets (Bld) [#/Vol] 348 10*3/uL Normal 150-450 [facility] Comment on above: Performed By: #### L 501.2450, L100.0100, L500.4050 ####[facility] [address] [place], [address] RBC (Bld) [#/Vol] 4.80 10*6/uL Normal 4.2-5.4 [facility] Comment on above: Performed By: #### L 501.2450, L100.0100, L500.4050 ####[facility] [address] [place], [address] RDW SD 53.6 fl High 35.1-43.9 [facility] Comment on above: Performed By: #### L 501.2450, L100.0100, L500.4050 ####[facility] [address] [place], [address] WBC (Bld) [#/Vol] 9.6 10*3/uL Normal 4.4-11.0 [facility] Comment on above: Performed By: #### L 501.2450, L100.0100, L500.4050 ####[facility] [address] [place], [address] Carbon dioxide, total [Moles /volume] in Central venous bloodOrdered By: Yenifer Patten on 11-23-2024 CO2 [Moles/Vol] 19.7 mmol/L Low 21.0-32.0 [facility] Chloride assayOrdered By: Kristin Patten on 11-23-2024 Chloride [Moles/Vol] 101 mmol/L 98-108 [facility] Comprehensive Metabolic Prof ilon 11-23-2024 Albumin [Mass/Vol] 3.5 g/dL Normal 3.4-4.8 [facility] Comment on above: Performed By: #### L 501.2450, L100.0100, L500.4050 ####[facility] [address] [place], [address] Albumin/Globulin [Mass ratio] 1.1 {ratio} Normal 0.9-2.4 [facility] Comment on above: Performed By: #### L 501.2450, L100.0100, L500.4050 ####[facility] [address] [place], [address] ALK PHOS 603 U/L High 35-104 [facility] Comment on above: Performed By: #### L 501.2450, L100.0100, L500.4050 ####[facility] [address] [place], [address] ALT [Catalytic activity/Vol] 159 U/L High <=34 [facility] Comment on above: Performed By: #### L 501.2450, L100.0100, L500.4050 ####[facility] [address] [place], [address] AST [Catalytic activity/Vol] 683 U/L High <=31 [facility] Comment on above: Performed By: #### L 501.2450, L100.0100, L500.4050 ####[facility] [address] [place], [address] Bilirubin [Mass/Vol] 3.04 mg/dL High 0.00-1.30 [facility] Comment on above: Performed By: #### L 501.2450, L100.0100, L500.4050 ####[facility] [address] [place], [address] BUN/CRE 18.3 RATIO Normal 10-20 [facility] Comment on above: Performed By: #### L 501.2450, L100.0100, L500.4050 ####[facility] [address] [place], [address] Calcium [Mass/Vol] 11.8 mg/dL High 7.6-11.0 [facility] Comment on above: Performed By: #### L 501.2450, L100.0100, L500.4050 ####[facility] [address] [place], [address] Chloride [Moles/Vol] 101 mmol/L Normal 98-108 [facility] Comment on above: Performed By: #### L 501.2450, L100.0100, L500.4050 ####[facility] [address] [place], [address] CO2 [Moles/Vol] 19.7 mmol/L Low 21.0-32.0 [facility] Comment on above: Performed By: #### L 501.2450, L100.0100, L500.4050 ####[facility] [address] [place], [address] Creatinine [Mass/Vol] 1.22 mg/dL High 0.70-1.20 [facility] Comment on above: Performed By: #### L 501.2450, L100.0100, L500.4050 ####[facility] [address] [place], [address] ECRCL 40.43 ml/min Low 50-250 [facility] Comment on above: Performed By: #### L 501.2450, L100.0100, L500.4050 ####[facility] [address] [place], [address] GAP 18 High 5-15 [facility] Comment on above: Performed By: #### L 501.2450, L100.0100, L500.4050 ####[facility] [address] [place], [address] GFR/1.73 sq M.predicted among non-blacks MDRD (S/P/Bld) [Vol rate/Area] 48 mL/min/{1.73_m2} Low >60 [facility] Comment on above: Result Comment: mL/m in/1.73m2 CKD-EPI Creatinine Equation (2020) Performed By: #### L 501.2450, L100.0100, L500.4050 ####[facility] [address] [place], [address] Globulin (S) [Mass/Vol] 3.2 g/dL Normal 2.2-4.2 [facility] Comment on above: Performed By: #### L 501.2450, L100.0100, L500.4050 ####[facility] [address] [place], [address] Glucose [Mass/Vol] 118 mg/dL High 70-99 [facility] Comment on above: Performed By: #### L 501.2450, L100.0100, L500.4050 ####[facility] [address] [place], [address] Potassium [Moles/Vol] 4.3 mmol/L Normal 3.3-5.1 [facility] Comment on above: Performed By: #### L 501.2450, L100.0100, L500.4050 ####[facility] [address] [place], [address] Sodium [Moles/Vol] 139 mmol/L Normal 133-145 [facility] Comment on above: Performed By: #### L 501.2450, L100.0100, L500.4050 ####[facility] [address] [place], [address] T PROT 6.8 g/dL Normal 5.9-8.4 [facility] Comment on above: Performed By: #### L 501.2450, L100.0100, L500.4050 ####[facility] [address] [place], [address] Urea nitrogen [Mass/Vol] 22 mg/dL High 4-19 [facility] Comment on above: Performed By: #### L 501.2450, L100.0100, L500.4050 ####[facility] [address] [place], [address] Emergency Department Summary on 11-23-2024 Emergency Department Summary Normal [facility] Eosinophil percentageOrdered By: Yenifer Patten on 11-23-2024 Eosinophils/100 WBC (Bld) 0.1 % 0-5 [facility] Erythrocyte distribution wid th ratioOrdered By: Yenifer Patten on 11-23-2024 Erythrocyte distribution width (RBC) [Ratio] 17.4 % High 11.6-14.6 [facility] Erythrocyte distribution wid th standard deviationOrdered By: Yenifer Patten on 11-23-2024 Erythrocyte distribution width (RBC) [Entitic vol] 53.6 fL High 35.1-43.9 [facility] Erythrocyte distribution width (RBC) [Ratio] 53.6 fl High 35.1-43.9 [facility] Estimation of creatinine lubna aranceOrdered By: Yenifer Patten on 11-23-2024 Estimated Creatinine Clearance Calc 40.43 ml/min Low 50-250 [facility] GFR/1.73 sq M.predicted mary g non-blacks MDRD (S/P/Bld) [Vol rate/Area]Ordered By: Yenifer Patten on 11-23-2024 Estimated GFR (MDRD) Non-Af Amer 48 Low >60 [facility] Comment on above: mL/min/1.73m2 CKD-EP I Creatinine Equation (2020) Glomerular filtration rate ( GFR) estimation/1.73 sq m using serum, plasma, or whole bOrdered By: Yenifer Patten on 11-23-2024 GFR/1.73 sq M.predicted among non-blacks MDRD (S/P/Bld) [Vol rate/Area] 48 mL/min/{1.73_m2} Low >60 [facility] Comment on above: mL/min/1.73m2 CKD-EP I Creatinine Equation (2020) Hematocrit Auto (Bld) [Volum e fraction]Ordered By: Yenifer Patten on 11-23-2024 Hematocrit (Bld) [Volume fraction] 41.5 % 37-47 [facility] Hemoglobin measurementOrdere d By: Yenifer Patten on 11-23-2024 Hemoglobin (Bld) [Mass/Vol] 14.3 g/dL 12.0-15.0 [facility] Immature granulocytes/100 WB C Auto (Bld)Ordered By: Yenifer Patten on 11-23-2024 Immature granulocytes/100 WBC (Bld) 0.700 % 0.0-0.9 [facility] Comment on above: IG% - Immature Granu locytes (promyelocytes, myelocytes and metamyelocytes) > 1% indicates that a LEFT SHIFT is Present. Laboratory - Chemistry and C hemistry - challengeOrdered By: Yenifer Patten on 11-23-2024 AST [Catalytic activity/Vol] 683 U/L High <32 [facility] Lipaseon 11-23-2024 Lipase [Catalytic activity/Vol] 267 U/L High 13-75 [facility] Comment on above: Result Comment: Elise brunson note:LIPASE revised reference range effective 22.New Lipase methodology. Expected to produce lower valuesthan the previous assay method.NEW Reference Range: 13 - 75 U/L Performed By: #### L 501.2450, L100.0100, L500.4050 ####[facility] [address] [place], [address] Lipase measurementOrdered By : Yenifer Patten on 11-23-2024 Lipase [Catalytic activity/Vol] 267 U/L High 13-75 [facility] Comment on above: Please note:LIPASE r evised reference range effective 22. New Lipase methodology. Expected to produce lower values than the previous assay method. NEW Reference Range: 13 - 75 U/L Lymphocytes Auto (Unsp spec) [#/Vol]Ordered By: Yenifer Patten on 11-23-2024 Lymphocytes (Bld) [#/Vol] 0.69 10*3/uL Low 0.83-4.51 [facility] Lymphocytes/100 WBC Auto (Un sp spec)Ordered By: Yenifer Patten on 11-23-2024 Lymphocytes/100 WBC (Bld) 7.2 % Low 19-41 [facility] MCV (mean corpuscular volume ) determinationOrdered By: Yenifer Patten on 11-23-2024 MCV (RBC) [Entitic vol] 86.5 fL 81-99 [facility] Mean corpuscular hemoglobin (MCH) determinationOrdered By: Yenifer Patten on 11-23-2024 MCH (RBC) [Entitic mass] 29.8 pg 27.0-32.0 [facility] Mean corpuscular hemoglobin concentration (MCHC) determinationOrdered By: Yenifer Patten on 11-23-2024 MCHC (RBC) [Mass/Vol] 34.5 g/dL 32-36 [facility] Mean platelet volume determi nationOrdered By: Yenifer Patten on 11-23-2024 Platelet mean volume (Bld) [Entitic vol] 11.5 fL 6.2-12.0 [facility] Monocyte percentageOrdered B y: Yenifer Patten on 11-23-2024 Monocytes/100 WBC (Bld) 13.0 % High 0-10 [facility] Neutrophil percentageOrdered By: Yenifer Patten on 11-23-2024 Neutrophils/100 WBC (Bld) 78.6 % High 47-70 [facility] No Panel InformationOrdered By: Yenifer Patten on 11-23-2024 683 U/L High <32 [facility] Nucleated red blood cell per centageOrdered By: Yenifer Patten on 11-23-2024 Nucleated RBC/100 WBC (Bld) [Ratio] 0.3 % 0-5 [facility] Platelet countOrdered By: Kristin Patten on 11-23-2024 Platelets (Bld) [#/Vol] 348 10*3/uL 150-450 [facility] Potassium (Unsp spec) [Mass/ Vol]Ordered By: Yenifer Patten on 11-23-2024 Potassium [Moles/Vol] 4.3 mmol/L 3.3-5.1 [facility] Potassium measurement (mass/ volume)Ordered By: Yenifer Patten on 11-23-2024 Potassium (Unsp spec) [Mass/Vol] 4.3 mmol/L 3.3-5.1 [facility] RBC Auto (Bld) [#/Vol]Ordere d By: Yenifer Patten on 11-23-2024 RBC (Bld) [#/Vol] 4.80 10*6/uL 4.2-5.4 [facility] Serum creatinine measurement (mass/volume)Ordered By: Yenifer Patten on 11-23-2024 Creatinine [Mass/Vol] 1.22 mg/dL High 0.70-1.20 [facility] Serum globulin measurementOr dered By: Yenifer Patten on 11-23-2024 Globulin (S) [Mass/Vol] 3.2 g/dL 2.2-4.2 [facility] Serum glucose measurement (m ass/volume)Ordered By: Yenifer Patten on 11-23-2024 Glucose [Mass/Vol] 118 mg/dL High 70-99 [facility] Serum or plasma alanine encarnacion otransferase (ALT) measurementOrdered By: Yenifer Patten on 11-23-2024 ALT [Catalytic activity/Vol] 159 U/L High <35 [facility] Serum or plasma albumin jayro urement (mass/volume)Ordered By: Yenifer Patten on 11-23-2024 Albumin [Mass/Vol] 3.5 g/dL 3.4-4.8 [facility] Serum or plasma albumin/glob ulin mass ratioOrdered By: Yenifer Patten on 11-23-2024 Albumin/Globulin [Mass ratio] 1.1 {ratio} 0.9-2.4 [facility] Serum or plasma alkaline lukas sphatase measurementOrdered By: Yenifer Patten on 11-23-2024 ALP [Catalytic activity/Vol] 603 U/L High 35-104 [facility] Serum or plasma calcium jayro urement (mass/volume)Ordered By: Yenifer Patten on 11-23-2024 Calcium [Mass/Vol] 11.8 mg/dL High 7.6-11.0 [facility] Serum or plasma urea nitroge n measurement (mass/volume)Ordered By: Yenifer Patten on 11-23-2024 Urea nitrogen [Mass/Vol] 22 mg/dL High 4-19 [facility] Sodium levelOrdered By: Yenifer Patten on 11-23-2024 Sodium [Moles/Vol] 139 mmol/L 133-145 [facility] Total proteinOrdered By: Laura Patten on 11-23-2024 Protein [Mass/Vol] 6.8 g/dL 5.9-8.4 [facility] White blood cell (WBC) count Ordered By: Yenifer Patten on 11-23-2024 WBC (Bld) [#/Vol] 9.6 10*3/uL 4.4-11.0 [facility] BUN/creatinine ratioOrdered By: Mae Horton on 11-14-2024 Urea nitrogen/Creatinine [Mass ratio] 10.6 mg/mg 10-20 [facility] Basic Metabolic Profile (BMP )on 11-14-2024 Anion gap [Moles/Vol] 13 mmol/L Normal 5-15 [facility] Comment on above: Performed By: #### L 100.0500, L500.2500 ####[facility] [address] [place], [address] BUN/CRE 10.6 RATIO Normal 10-20 [facility] Comment on above: Performed By: #### L 100.0500, L500.2500 ####[facility] [address] [place], [address] Calcium [Mass/Vol] 10.1 mg/dL Normal 7.6-11.0 [facility] Comment on above: Performed By: #### L 100.0500, L500.2500 ####[facility] [address] [place], [address] Chloride [Moles/Vol] 105 mmol/L Normal 96-108 [facility] Comment on above: Performed By: #### L 100.0500, L500.2500 ####[facility] [address] [place], [address] CO2 [Moles/Vol] 20.3 mmol/L Low 22.0-29.0 [facility] Comment on above: Performed By: #### L 100.0500, L500.2500 ####[facility] [address] [place], [address] Creatinine [Mass/Vol] 0.91 mg/dL Normal 0.70-1.20 [facility] Comment on above: Performed By: #### L 100.0500, L500.2500 ####[facility] [address] [place], [address] ECRCL 54.89 ml/min Normal [facility] Comment on above: Performed By: #### L 100.0500, L500.2500 ####[facility] [address] [place], [address] GFR/1.73 sq M.predicted among non-blacks MDRD (S/P/Bld) [Vol rate/Area] 68 mL/min/{1.73_m2} Normal >60 [facility] Comment on above: Result Comment: mL/m in/1.73m2 CKD-EPI Creatinine Equation (2020) Performed By: #### L 100.0500, L500.2500 ####[facility] [address] [place], [address] Glucose [Mass/Vol] 95 mg/dL Normal 70-99 [facility] Comment on above: Performed By: #### L 100.0500, L500.2500 ####[facility] [address] [place], [address] Potassium [Moles/Vol] 4.2 mmol/L Normal 3.3-5.1 [facility] Comment on above: Performed By: #### L 100.0500, L500.2500 ####[facility] [address] [place], [address] Sodium [Moles/Vol] 139 mmol/L Normal 133-145 [facility] Comment on above: Performed By: #### L 100.0500, L500.2500 ####[facility] [address] [place], [address] Urea nitrogen [Mass/Vol] 10 mg/dL Normal 4-19 [facility] Comment on above: Performed By: #### L 100.0500, L500.2500 ####[facility] [address] [place], [address] Biopsy/Inj or Needle Placeme nton 11-14-2024 Biopsy/Inj or Needle Placement Normal [facility] CBC-Complete Blood Cnt No Di ffon 11-14-2024 Erythrocyte distribution width (RBC) [Ratio] 15.8 % High 11.6-14.6 [facility] Comment on above: Performed By: #### L 100.0500, L500.2500 ####[facility] [address] [place], [address] Hematocrit (Bld) [Volume fraction] 37.1 % Normal 37-47 [facility] Comment on above: Performed By: #### L 100.0500, L500.2500 ####[facility] [address] [place], [address] Hemoglobin (Bld) [Mass/Vol] 12.0 g/dL Normal 12.0-15.0 [facility] Comment on above: Performed By: #### L 100.0500, L500.2500 ####[facility] [address] [place], [address] MCH (RBC) [Entitic mass] 28.8 pg Normal 27.0-32.0 [facility] Comment on above: Performed By: #### L 100.0500, L500.2500 ####[facility] [address] [place], [address] MCHC (RBC) [Mass/Vol] 32.3 g/dL Normal 32-36 [facility] Comment on above: Performed By: #### L 100.0500, L500.2500 ####[facility] [address] [place], [address] MCV (RBC) [Entitic vol] 89.0 fL Normal 81-99 [facility] Comment on above: Performed By: #### L 100.0500, L500.2500 ####[facility] [address] [place], [address] Platelet mean volume (Bld) [Entitic vol] 12.0 fL Normal 6.2-12.0 [facility] Comment on above: Performed By: #### L 100.0500, L500.2500 ####[facility] [address] [place], [address] Platelets (Bld) [#/Vol] 275 10*3/uL Normal 150-450 [facility] Comment on above: Performed By: #### L 100.0500, L500.2500 ####[facility] [address] [place], [address] RBC (Bld) [#/Vol] 4.17 10*6/uL Low 4.2-5.4 [facility] Comment on above: Performed By: #### L 100.0500, L500.2500 ####[facility] [address] [place], [address] RDW SD 50.9 fl High 35.1-43.9 [facility] Comment on above: Performed By: #### L 100.0500, L500.2500 ####[facility] [address] [place], [address] WBC (Bld) [#/Vol] 7.2 10*3/uL Normal 4.4-11.0 [facility] Comment on above: Performed By: #### L 100.0500, L500.2500 ####[facility] [address] [place], [address] Carbon dioxide measurementOr dered By: Mae Horton on 11-14-2024 CO2 [Moles/Vol] 20.3 mmol/L Low 22.0-29.0 [facility] Chloride measurementOrdered By: Mae Horton on 11-14-2024 Chloride [Moles/Vol] 105 mmol/L 96-108 [facility] Erythrocyte distribution wid th ratioOrdered By: Mae Horton on 11-14-2024 Erythrocyte distribution width (RBC) [Ratio] 15.8 % High 11.6-14.6 [facility] Erythrocyte distribution wid th standard deviationOrdered By: Mae Horton on 11-14-2024 Erythrocyte distribution width (RBC) [Entitic vol] 50.9 fL High 35.1-43.9 [facility] Erythrocyte distribution width (RBC) [Ratio] 50.9 fl High 35.1-43.9 [facility] Estimation of creatinine lubna aranceOrdered By: Mae Horton on 11-14-2024 Estimated Creatinine Clearance Calc 54.89 ml/min [facility] GFR/1.73 sq M.predicted mary g non-blacks MDRD (S/P/Bld) [Vol rate/Area]Ordered By: Mae Horton on 11-14-2024 Estimated GFR (MDRD) Non-Af Amer 68 >60 [facility] Comment on above: mL/min/1.73m2 CKD-EP I Creatinine Equation (2020) Glomerular filtration rate ( GFR) estimation/1.73 sq m using serum, plasma, or whole bOrdered By: Mae Horton on 11-14-2024 GFR/1.73 sq M.predicted among non-blacks MDRD (S/P/Bld) [Vol rate/Area] 68 mL/min/{1.73_m2} >60 [facility] Comment on above: mL/min/1.73m2 CKD-EP I Creatinine Equation (2020) Hematocrit Auto (Bld) [Volum e fraction]Ordered By: Mae Horton on 11-14-2024 Hematocrit (Bld) [Volume fraction] 37.1 % 37-47 [facility] Hemoglobin measurementOrdere d By: Mae Horton on 11-14-2024 Hemoglobin (Bld) [Mass/Vol] 12.0 g/dL 12.0-15.0 [facility] Immunohistochemical Stainson 11-14-2024 Immunohistochemical Stains Normal [facility] Comment on above: Performed By: #### P IMMN ####[facility] [address] [place], [place], [id number] MCV (mean corpuscular volume ) determinationOrdered By: Mae Horton on 11-14-2024 MCV (RBC) [Entitic vol] 89.0 fL 81-99 [facility] Mean corpuscular hemoglobin (MCH) determinationOrdered By: Mae Horton on 11-14-2024 MCH (RBC) [Entitic mass] 28.8 pg 27.0-32.0 [facility] Mean corpuscular hemoglobin concentration (MCHC) determinationOrdered By: Mae Horton on 11-14-2024 MCHC (RBC) [Mass/Vol] 32.3 g/dL 32-36 [facility] Mean platelet volume determi nationOrdered By: Mae Horton on 11-14-2024 Platelet mean volume (Bld) [Entitic vol] 12.0 fL 6.2-12.0 [facility] Platelet countOrdered By: Kassie Horton on 11-14-2024 Platelets (Bld) [#/Vol] 275 10*3/uL 150-450 [facility] RBC Auto (Bld) [#/Vol]Ordere d By: Mae Horton on 11-14-2024 RBC (Bld) [#/Vol] 4.17 10*6/uL Low 4.2-5.4 [facility] Serum creatinine measurement (mass/volume)Ordered By: Mae Horton on 11-14-2024 Creatinine [Mass/Vol] 0.91 mg/dL 0.70-1.20 [facility] Serum glucose measurement (m ass/volume)Ordered By: Mae Horton on 11-14-2024 Glucose [Mass/Vol] 95 mg/dL 70-99 [facility] Serum or plasma anion gap de termination (moles/volume)Ordered By: Mae Horton on 11-14-2024 Anion gap [Moles/Vol] 13 mmol/L 5-15 [facility] Serum or plasma calcium jayro urement (mass/volume)Ordered By: Mae Horton on 11-14-2024 Calcium [Mass/Vol] 10.1 mg/dL 7.6-11.0 [facility] Serum or plasma potassium me asurementOrdered By: Mea Horton on 11-14-2024 Potassium [Moles/Vol] 4.2 mmol/L 3.3-5.1 [facility] Serum or plasma sodium measu rement (moles/volume)Ordered By: Mae Horton on 11-14-2024 Sodium [Moles/Vol] 139 mmol/L 133-145 [facility] Serum or plasma urea nitroge n measurement (mass/volume)Ordered By: Mae Horton on 11-14-2024 Urea nitrogen [Mass/Vol] 10 mg/dL 4-19 [facility] White blood cell (WBC) count Ordered By: Mae Horton on 11-14-2024 WBC (Bld) [#/Vol] 7.2 10*3/uL 4.4-11.0 [facility] 12 Lead EKGon 11-13-2024 12 Lead EKG Normal [facility] Absolute lymphocyte countOrd ered By: Mae Horton on 11-13-2024 Lymphocytes Auto (Unsp spec) [#/Vol] 1.02 10*3/uL 0.83-4.51 [facility] Absolute neutrophil countOrd ered By: Mae Horton on 11-13-2024 Neutrophils (Bld) [#/Vol] 4.2 10*3/uL 2.0-7.7 [facility] Automated lymphocyte count a s percentage of total leukocytesOrdered By: Mae Horton on 11-13-2024 Lymphocytes/100 WBC Auto (Unsp spec) 16.3 % Low 19-41 [facility] Basophil percentageOrdered B y: Mae Horton on 11-13-2024 Basophils/100 WBC (Bld) 0.8 % 0-1 [facility] Bilirubin, totalOrdered By: Mae Horton on 11-13-2024 Bilirubin [Mass/Vol] 0.84 mg/dL 0.00-1.30 [facility] CBC W/Diff, Automatedon 10-19 Absolute Lymph 1.02 X10 3/uL Normal 0.83-4.51 [facility] Comment on above: Performed By: #### L 501.2300, L100.0100, L500.4050, L501.9520, L501.5200 ####[facility] [address] [place], [place], [id number] Absolute Neut 4.2 X10 3/uL Normal 2.0-7.7 [facility] Comment on above: Performed By: #### L 501.2300, L100.0100, L500.4050, L501.9520, L501.5200 ####[facility] [address] [place], [address] Basophils/100 WBC (Bld) 0.8 % Normal 0-1 [facility] Comment on above: Performed By: #### L 501.2300, L100.0100, L500.4050, L501.9520, L501.5200 ####[facility] [address] [place], [address] Eosinophils/100 WBC (Bld) 0.6 % Normal 0-5 [facility] Comment on above: Performed By: #### L 501.2300, L100.0100, L500.4050, L501.9520, L501.5200 ####[facility] [address] [place], [address] Erythrocyte distribution width (RBC) [Ratio] 15.3 % High 11.6-14.6 [facility] Comment on above: Performed By: #### L 501.2300, L100.0100, L500.4050, L501.9520, L501.5200 ####[facility] [address] [place], [address] Hematocrit (Bld) [Volume fraction] 35.9 % Low 37-47 [facility] Comment on above: Performed By: #### L 501.2300, L100.0100, L500.4050, L501.9520, L501.5200 ####[facility] [address] [place], [address] Hemoglobin (Bld) [Mass/Vol] 11.7 g/dL Low 12.0-15.0 [facility] Comment on above: Performed By: #### L 501.2300, L100.0100, L500.4050, L501.9520, L501.5200 ####[facility] [address] [place], [address] IG% 0.300 Normal 0.0-0.9 [facility] Comment on above: Result Comment: IG% - Immature Granulocytes (promyelocytes, myelocytes andmetamyelocytes) > 1% indicates that a LEFT SHIFT is Present. Performed By: #### L 501.2300, L100.0100, L500.4050, L501.9520, L501.5200 ####[facility] [address] [place], [address] Lymphocytes/100 WBC (Bld) 16.3 % Low 19-41 [facility] Comment on above: Performed By: #### L 501.2300, L100.0100, L500.4050, L501.9520, L501.5200 ####[facility] [address] [place], [address] MCH (RBC) [Entitic mass] 28.9 pg Normal 27.0-32.0 [facility] Comment on above: Performed By: #### L 501.2300, L100.0100, L500.4050, L501.9520, L501.5200 ####[facility] [address] [place], [address] MCHC (RBC) [Mass/Vol] 32.6 g/dL Normal 32-36 [facility] Comment on above: Performed By: #### L 501.2300, L100.0100, L500.4050, L501.9520, L501.5200 ####[facility] [address] [place], [address] MCV (RBC) [Entitic vol] 88.6 fL Normal 81-99 [facility] Comment on above: Performed By: #### L 501.2300, L100.0100, L500.4050, L501.9520, L501.5200 ####[facility] [address] [place], [address] Monocytes/100 WBC (Bld) 14.7 % High 0-10 [facility] Comment on above: Performed By: #### L 501.2300, L100.0100, L500.4050, L501.9520, L501.5200 ####[facility] [address] [place], [address] Neutrophils/100 WBC (Bld) 67.3 % Normal 47-70 [facility] Comment on above: Performed By: #### L 501.2300, L100.0100, L500.4050, L501.9520, L501.5200 ####[facility] [address] [place], [address] Nucleated RBC (Bld) [#/Vol] 0 10*3/uL Normal 0-5 [facility] Comment on above: Performed By: #### L 501.2300, L100.0100, L500.4050, L501.9520, L501.5200 ####[facility] [address] [place], [address] Platelet mean volume (Bld) [Entitic vol] 11.2 fL Normal 6.2-12.0 [facility] Comment on above: Performed By: #### L 501.2300, L100.0100, L500.4050, L501.9520, L501.5200 ####[facility] [address] [place], [address] Platelets (Bld) [#/Vol] 249 10*3/uL Normal 150-450 [facility] Comment on above: Performed By: #### L 501.2300, L100.0100, L500.4050, L501.9520, L501.5200 ####[facility] [address] [place], [address] RBC (Bld) [#/Vol] 4.05 10*6/uL Low 4.2-5.4 [facility] Comment on above: Performed By: #### L 501.2300, L100.0100, L500.4050, L501.9520, L501.5200 ####[facility] [address] [place], [address] RDW SD 49.1 fl High 35.1-43.9 [facility] Comment on above: Performed By: #### L 501.2300, L100.0100, L500.4050, L501.9520, L501.5200 ####[facility] [address] [place], [address] WBC (Bld) [#/Vol] 6.3 10*3/uL Normal 4.4-11.0 [facility] Comment on above: Performed By: #### L 501.2300, L100.0100, L500.4050, L501.9520, L501.5200 ####[facility] [address] [place], [address] Comprehensive Metabolic [facility] 11-13-2024 Albumin [Mass/Vol] 3.5 g/dL Normal 3.4-4.8 [facility] Comment on above: Performed By: #### L 501.2300, L100.0100, L500.4050, L501.9520, L501.5200 ####[facility] [address] [place], [address] Albumin/Globulin [Mass ratio] 1.7 {ratio} Normal 0.9-2.4 [facility] Comment on above: Performed By: #### L 501.2300, L100.0100, L500.4050, L501.9520, L501.5200 ####[facility] [address] [place], [address] ALK PHOS 422 U/L High 35-104 [facility] Comment on above: Performed By: #### L 501.2300, L100.0100, L500.4050, L501.9520, L501.5200 ####[facility] [address] [place], [address] ALT [Catalytic activity/Vol] 133 U/L High <=34 [facility] Comment on above: Performed By: #### L 501.2300, L100.0100, L500.4050, L501.9520, L501.5200 ####[facility] [address] [place], [address] Anion gap [Moles/Vol] 12 mmol/L Normal 5-15 [facility] Comment on above: Performed By: #### L 501.2300, L100.0100, L500.4050, L501.9520, L501.5200 ####[facility] [address] [place], [address] AST [Catalytic activity/Vol] 462 U/L High <=31 [facility] Comment on above: Performed By: #### L 501.2300, L100.0100, L500.4050, L501.9520, L501.5200 ####[facility] [address] [place], [address] Bilirubin [Mass/Vol] 0.84 mg/dL Normal 0.00-1.30 [facility] Comment on above: Performed By: #### L 501.2300, L100.0100, L500.4050, L501.9520, L501.5200 ####[facility] [address] [place], [address] BUN/CRE 12.3 RATIO Normal 10-20 [facility] Comment on above: Performed By: #### L 501.2300, L100.0100, L500.4050, L501.9520, L501.5200 ####[facility] [address] [place], [address] Calcium [Mass/Vol] 9.9 mg/dL Normal 7.6-11.0 [facility] Comment on above: Performed By: #### L 501.2300, L100.0100, L500.4050, L501.9520, L501.5200 ####[facility] [address] [place], [address] Chloride [Moles/Vol] 105 mmol/L Normal 96-108 [facility] Comment on above: Performed By: #### L 501.2300, L100.0100, L500.4050, L501.9520, L501.5200 ####[facility] [address] [place], [address] CO2 [Moles/Vol] 21.4 mmol/L Low 22.0-29.0 [facility] Comment on above: Performed By: #### L 501.2300, L100.0100, L500.4050, L501.9520, L501.5200 ####[facility] [address] [place], [address] Creatinine [Mass/Vol] 0.8 mg/dL Normal 0.6-1.0 [facility] Comment on above: Performed By: #### L 501.2300, L100.0100, L500.4050, L501.9520, L501.5200 ####[facility] [address] [place], [address] ECRCL 62.02 ml/min Normal [facility] Comment on above: Performed By: #### L 501.2300, L100.0100, L500.4050, L501.9520, L501.5200 ####[facility] [address] [place], [address] GFR/1.73 sq M.predicted among non-blacks MDRD (S/P/Bld) [Vol rate/Area] 74 mL/min/{1.73_m2} Normal >60 [facility] Comment on above: Result Comment: mL/m in/1.73m2 CKD-EPI Creatinine Equation (2020) Performed By: #### L 501.2300, L100.0100, L500.4050, L501.9520, L501.5200 ####[facility] [address] [place], [address] Globulin (S) [Mass/Vol] 2.0 g/dL Low 2.2-4.2 [facility] Comment on above: Performed By: #### L 501.2300, L100.0100, L500.4050, L501.9520, L501.5200 ####[facility] [address] [place], [address] Glucose [Mass/Vol] 90 mg/dL Normal 70-99 [facility] Comment on above: Performed By: #### L 501.2300, L100.0100, L500.4050, L501.9520, L501.5200 ####[facility] [address] [place], [address] Potassium [Moles/Vol] 4.3 mmol/L Normal 3.3-5.1 [facility] Comment on above: Performed By: #### L 501.2300, L100.0100, L500.4050, L501.9520, L501.5200 ####[facility] [address] [place], [address] Sodium [Moles/Vol] 138 mmol/L Normal 133-145 [facility] Comment on above: Performed By: #### L 501.2300, L100.0100, L500.4050, L501.9520, L501.5200 ####[facility] [address], [address] T PROT 5.5 g/dL Low 5.9-8.4 [facility] Comment on above: Performed By: #### L 501.2300, L100.0100, L500.4050, L501.9520, L501.5200 ####[facility] [address] [place], [address] Urea nitrogen [Mass/Vol] 10 mg/dL Normal 4-19 [facility] Comment on above: Performed By: #### L 501.2300, L100.0100, L500.4050, L501.9520, L501.5200 ####[facility] [address] [place], [address] ENTERIC PATHOGEN PANEL STOOL on 11-13-2024 EP PANEL Normal [facility] Comment on above: Performed By: #### M 100.7900, M100.637 ####[facility] [address] [place], [address] Eosinophil percentageOrdered By: Mae Horton on 11-13-2024 Eosinophils/100 WBC (Bld) 0.6 % 0-5 [facility] Immature granulocytes/100 WB C Auto (Bld)Ordered By: Mae Horton on 11-13-2024 Immature granulocytes/100 WBC (Bld) 0.300 % 0.0-0.9 [facility] Comment on above: IG% - Immature Granu locytes (promyelocytes, myelocytes and metamyelocytes) > 1% indicates that a LEFT SHIFT is Present. Laboratory - Chemistry and C hemistry - challengeOrdered By: Mae Horton on 11-13-2024 AST [Catalytic activity/Vol] 462 U/L High <32 [facility] Lymphocytes Auto (Unsp spec) [#/Vol]Ordered By: Mae Horton on 11-13-2024 Lymphocytes (Bld) [#/Vol] 1.02 10*3/uL 0.83-4.51 [facility] Lymphocytes/100 WBC Auto (Un sp spec)Ordered By: Mae Horton on 11-13-2024 Lymphocytes/100 WBC (Bld) 16.3 % Low 19-41 [facility] Magnesiumon 11-13-2024 Magnesium [Mass/Vol] 1.7 mg/dL Normal 1.5-2.2 [facility] Comment on above: Performed By: #### L 501.2300, L100.0100, L500.4050, L501.9520, L501.5200 ####[facility] [address] [place], [place], [id number] Magnesium (Unsp spec) [Mass/ Vol]Ordered By: Mae Horton on 11-13-2024 Magnesium [Mass/Vol] 1.7 mg/dL 1.5-2.2 [facility] Magnesium measurement (mass/ volume)Ordered By: Mae Horton on 11-13-2024 Magnesium (Unsp spec) [Mass/Vol] 1.7 mg/dL 1.5-2.2 [facility] Monocyte percentageOrdered B y: Mae Horton on 11-13-2024 Monocytes/100 WBC (Bld) 14.7 % High 0-10 [facility] Neutrophil percentageOrdered By: Mae Horton on 11-13-2024 Neutrophils/100 WBC (Bld) 67.3 % 47-70 [facility] No Panel InformationOrdered By: Mae Horton on 11-13-2024 462 U/L High <32 [facility] Nucleated red blood cell per centageOrdered By: Mae Horton on 11-13-2024 Nucleated RBC/100 WBC (Bld) [Ratio] 0 % 0-5 [facility] Phosphoruson 11-13-2024 Phosphate [Mass/Vol] 2.9 mg/dL Normal 2.7-4.5 [facility] Comment on above: Performed By: #### L 501.2300, L100.0100, L500.4050, L501.9520, L501.5200 ####[facility] [address] [place], [place], [id number] Serum globulin measurementOr dered By: Mae Horton on 11-13-2024 Globulin (S) [Mass/Vol] 2.0 g/dL Low 2.2-4.2 [facility] Serum or plasma alanine encarnacion otransferase (ALT) measurementOrdered By: Mae Horton on 11-13-2024 ALT [Catalytic activity/Vol] 133 U/L High <35 [facility] Serum or plasma albumin jayro urement (mass/volume)Ordered By: Mae Horton on 11-13-2024 Albumin [Mass/Vol] 3.5 g/dL 3.4-4.8 [facility] Serum or plasma albumin/glob ulin mass ratioOrdered By: Mae Horton on 11-13-2024 Albumin/Globulin [Mass ratio] 1.7 {ratio} 0.9-2.4 [facility] Serum or plasma alkaline lukas sphatase measurementOrdered By: Mae Horton on 11-13-2024 ALP [Catalytic activity/Vol] 422 U/L High 35-104 [facility] Serum phosphorus measurement Ordered By: Mae Horton on 11-13-2024 Phosphorus Level 2.9 mg/dL 2.7-4.5 [facility] TSH DL <= 0.005 mIU/L QnOrde red By: Mae Horton on 11-13-2024 Thyroid Stimulating Hormone (TSH) 3.530 uIU/mL 0.300-4.200 [facility] TSH Qn 3.530 uIU/mL 0.300-4.200 [facility] Thyroid Stim Hormone (TSH)on 11-13-2024 TSH 3.530 uIU/mL Normal 0.300-4.200 [facility] Comment on above: Performed By: #### L 501.2300, L100.0100, L500.4050, L501.9520, L501.5200 ####[facility] [address] [place], [address] Total proteinOrdered By: Yamel Horton on 11-13-2024 Protein [Mass/Vol] 5.5 g/dL Low 5.9-8.4 [facility] Abdomen/Pelvis W IV Cont ONL Yon 11-12-2024 Abdomen/Pelvis W IV Cont ONLY Normal [facility] Activated partial thrombopla stin time (aPTT) in platelet poor plasma by coagulation aOrdered By: Austin Mack on 11-12-2024 aPTT Coag (PPP) [Time] 26.4 s 24.1-36.2 [facility] Bacteria LM.HPF (Urine sed) [#/Area]Ordered By: Austin Mack on 11-12-2024 Urine Bacteria RARE /hpf None Seen [facility] Bilirubin Test strip Ql (U)O rdered By: Austin Mack on 11-12-2024 Bilirubin Ql (U) 1 mg/dL High Negative [facility] Comment on above: COLOR OF URINE MAY A FFECT DIPSTICK RESULTS. CBC W/Diff, Automatedon 10-19 Absolute Lymph 0.81 X10 3/uL Low 0.83-4.51 [facility] Comment on above: Performed By: #### L 300.3900, L500.4050, L300.4310, L501.2450, L100.0100 ####[facility] [address] [place], [address] Absolute Neut 5.9 X10 3/uL Normal 2.0-7.7 [facility] Comment on above: Performed By: #### L 300.3900, L500.4050, L300.4310, L501.2450, L100.0100 ####[facility] [address] [place], [address] Basophils/100 WBC (Bld) 0.8 % Normal 0-1 [facility] Comment on above: Performed By: #### L 300.3900, L500.4050, L300.4310, L501.2450, L100.0100 ####[facility] [address] [place], [address] Eosinophils/100 WBC (Bld) 0.3 % Normal 0-5 [facility] Comment on above: Performed By: #### L 300.3900, L500.4050, L300.4310, L501.2450, L100.0100 ####[facility] [address] [place], [address] Erythrocyte distribution width (RBC) [Ratio] 15.1 % High 11.6-14.6 [facility] Comment on above: Performed By: #### L 300.3900, L500.4050, L300.4310, L501.2450, L100.0100 ####[facility] [address] [place], [address] Hematocrit (Bld) [Volume fraction] 41.0 % Normal 37-47 [facility] Comment on above: Performed By: #### L 300.3900, L500.4050, L300.4310, L501.2450, L100.0100 ####[facility] [address] [place], [address] Hemoglobin (Bld) [Mass/Vol] 13.8 g/dL Normal 12.0-15.0 [facility] Comment on above: Performed By: #### L 300.3900, L500.4050, L300.4310, L501.2450, L100.0100 ####[facility] [address] [place], [address] IG% 0.400 Normal 0.0-0.9 [facility] Comment on above: Result Comment: IG% - Immature Granulocytes (promyelocytes, myelocytes andmetamyelocytes) > 1% indicates that a LEFT SHIFT is Present. Performed By: #### L 300.3900, L500.4050, L300.4310, L501.2450, L100.0100 ####[facility] [address] [place], [address] Lymphocytes/100 WBC (Bld) 10.5 % Low 19-41 [facility] Comment on above: Performed By: #### L 300.3900, L500.4050, L300.4310, L501.2450, L100.0100 ####[facility] [address] [place], [address] MCH (RBC) [Entitic mass] 29.4 pg Normal 27.0-32.0 [facility] Comment on above: Performed By: #### L 300.3900, L500.4050, L300.4310, L501.2450, L100.0100 ####[facility] [address] [place], [address] MCHC (RBC) [Mass/Vol] 33.7 g/dL Normal 32-36 [facility] Comment on above: Performed By: #### L 300.3900, L500.4050, L300.4310, L501.2450, L100.0100 ####[facility] [address] [place], [address] MCV (RBC) [Entitic vol] 87.4 fL Normal 81-99 [facility] Comment on above: Performed By: #### L 300.3900, L500.4050, L300.4310, L501.2450, L100.0100 ####[facility] [address] [place], [address] Monocytes/100 WBC (Bld) 12.3 % High 0-10 [facility] Comment on above: Performed By: #### L 300.3900, L500.4050, L300.4310, L501.2450, L100.0100 ####[facility] [address] [place], [address] Neutrophils/100 WBC (Bld) 75.7 % High 47-70 [facility] Comment on above: Performed By: #### L 300.3900, L500.4050, L300.4310, L501.2450, L100.0100 ####[facility] [address] [place], [address] Nucleated RBC (Bld) [#/Vol] 0 10*3/uL Normal 0-5 [facility] Comment on above: Performed By: #### L 300.3900, L500.4050, L300.4310, L501.2450, L100.0100 ####[facility] [address] [place], [address] Platelet mean volume (Bld) [Entitic vol] 11.6 fL Normal 6.2-12.0 [facility] Comment on above: Performed By: #### L 300.3900, L500.4050, L300.4310, L501.2450, L100.0100 ####[facility] [address] [place], [address] Platelets (Bld) [#/Vol] 326 10*3/uL Normal 150-450 [facility] Comment on above: Performed By: #### L 300.3900, L500.4050, L300.4310, L501.2450, L100.0100 ####[facility] [address] [place], [address] RBC (Bld) [#/Vol] 4.69 10*6/uL Normal 4.2-5.4 [facility] Comment on above: Performed By: #### L 300.3900, L500.4050, L300.4310, L501.2450, L100.0100 ####[facility] [address] [place], [address] RDW SD 48.1 fl High 35.1-43.9 [facility] Comment on above: Performed By: #### L 300.3900, L500.4050, L300.4310, L501.2450, L100.0100 ####[facility] [address] [place], [address] WBC (Bld) [#/Vol] 7.7 10*3/uL Normal 4.4-11.0 [facility] Comment on above: Performed By: #### L 300.3900, L500.4050, L300.4310, L501.2450, L100.0100 ####[facility] [address] [place], [address] CNOVon 11-12-2024 CNOV Office Visit (FAMPWS) EBTSY RODRIGEZ ([id number]) 1955 F Date Time Provider Department 11/12/24 8:40 AM [facility] today, we recorded [...] for diarrhea which is not helping. Has Lynco for her back which she has been taking for her abdominal pain without much improvement. Needing to take Lynco more than prescribed. Past medical history, appointments, medications, allergies reviewed. Previous Medical History PAST MEDICAL HISTORY Diagnosis Date Anxiety with depression Chronic back pain Chronic kidney disease (CKD), stage 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 Johnson Dysphagia Dr. Stiles Ectopic 1991 GERD (gastroesophageal reflux disease) History of prediabetes Hyperlipidemia Hypertension Hypothyroidism Obesity (BMI 30.0-34.9) Other pulmonary embolism without acute cor pulmonale (HCC) Pneumonia due to [facility]- virus Requiring intubation Previous Surgical History [...] Known Problems Brother Stroke Maternal Grandmother or [place], patient unsure Coronary Artery Disease Maternal Grandfather Alcohol abuse Paternal Grandfather Patient Allergies ALLERGIES Allergen Reactions Meagan Inhibitors Rash Codeine Vomiting, Other: See Comments Headache Remeron [Mirtazapin* Other: See Comments Fatigue Clesqhv-Bpr-Ynk Red* Myalgia Buckner Unknown Zetia [Ezetimibe] Myalgia Current Medications Current [...] not taking: Reported on 11/05/2024) mv,jaci,iron,mn/folic acid/chol (SEAL-BTYM-TCLMR, PABA, ORAL) Take 1 tablet by mouth once daily. (Patien (more content not included)... Normal [facility] Metabolic Prof ilon 11-12-2024 Albumin [Mass/Vol] 3.9 g/dL Normal 3.4-4.8 [facility] Comment on above: Performed By: #### L 300.3900, L500.4050, L300.4310, L501.2450, L100.0100 ####[facility] [address] [place], [address] Albumin/Globulin [Mass ratio] 1.3 {ratio} Normal 0.9-2.4 [facility] Comment on above: Performed By: #### L 300.3900, L500.4050, L300.4310, L501.2450, L100.0100 ####[facility] [address] [place], [address] ALK PHOS 494 U/L High 35-104 [facility] Comment on above: Performed By: #### L 300.3900, L500.4050, L300.4310, L501.2450, L100.0100 ####[facility] [address] [place], [address] ALT [Catalytic activity/Vol] 142 U/L High <=34 [facility] Comment on above: Performed By: #### L 300.3900, L500.4050, L300.4310, L501.2450, L100.0100 ####[facility] [address] [place], [address] Anion gap [Moles/Vol] 14 mmol/L Normal 5-15 [facility] Comment on above: Performed By: #### L 300.3900, L500.4050, L300.4310, L501.2450, L100.0100 ####[facility] [address] [place], [address] AST [Catalytic activity/Vol] 529 U/L High <=31 [facility] Comment on above: Performed By: #### L 300.3900, L500.4050, L300.4310, L501.2450, L100.0100 ####[facility] [address] [place], [address] Bilirubin [Mass/Vol] 0.97 mg/dL Normal 0.00-1.30 [facility] Comment on above: Performed By: #### L 300.3900, L500.4050, L300.4310, L501.2450, L100.0100 ####[facility] [address] [place], [address] BUN/CRE 19.5 RATIO Normal 10-20 [facility] Comment on above: Performed By: #### L 300.3900, L500.4050, L300.4310, L501.2450, L100.0100 ####[facility] [address] [place], [address] Calcium [Mass/Vol] 10.5 mg/dL Normal 7.6-11.0 [facility] Comment on above: Performed By: #### L 300.3900, L500.4050, L300.4310, L501.2450, L100.0100 ####[facility] [address] [place], [address] Chloride [Moles/Vol] 102 mmol/L Normal 96-108 [facility] Comment on above: Performed By: #### L 300.3900, L500.4050, L300.4310, L501.2450, L100.0100 ####[facility] [address] [place], [address] CO2 [Moles/Vol] 21.8 mmol/L Low 22.0-29.0 [facility] Comment on above: Performed By: #### L 300.3900, L500.4050, L300.4310, L501.2450, L100.0100 ####[facility] [address] [place], [address] Creatinine [Mass/Vol] 0.9 mg/dL Normal 0.6-1.0 [facility] Comment on above: Performed By: #### L 300.3900, L500.4050, L300.4310, L501.2450, L100.0100 ####[facility] [address] [place], [address] ECRCL 54.07 ml/min Normal [facility] Comment on above: Performed By: #### L 300.3900, L500.4050, L300.4310, L501.2450, L100.0100 ####[facility] [address] [place], [address] GFR/1.73 sq M.predicted among non-blacks MDRD (S/P/Bld) [Vol rate/Area] 68 mL/min/{1.73_m2} Normal >60 [facility] Comment on above: Result Comment: mL/m in/1.73m2 CKD-EPI Creatinine Equation (2020) Performed By: #### L 300.3900, L500.4050, L300.4310, L501.2450, L100.0100 ####[facility] [address] [place], [address] Globulin (S) [Mass/Vol] 3.1 g/dL Normal 2.2-4.2 [facility] Comment on above: Performed By: #### L 300.3900, L500.4050, L300.4310, L501.2450, L100.0100 ####[facility] [address] [place], [address] Glucose [Mass/Vol] 102 mg/dL High 70-99 [facility] Comment on above: Performed By: #### L 300.3900, L500.4050, L300.4310, L501.2450, L100.0100 ####[facility] [address] [place], [address] Potassium [Moles/Vol] 4.4 mmol/L Normal 3.3-5.1 [facility] Comment on above: Performed By: #### L 300.3900, L500.4050, L300.4310, L501.2450, L100.0100 ####[facility] [address] [place], [address] Sodium [Moles/Vol] 137 mmol/L Normal 133-145 [facility] Comment on above: Performed By: #### L 300.3900, L500.4050, L300.4310, L501.2450, L100.0100 ####[facility] [address] [place], [address] T PROT 7.0 g/dL Normal 5.9-8.4 [facility] Comment on above: Performed By: #### L 300.3900, L500.4050, L300.4310, L501.2450, L100.0100 ####[facility] [address] [place], [place], [id number] Urea nitrogen [Mass/Vol] 18 mg/dL Normal 4-19 [facility] Comment on above: Performed By: #### L 300.3900, L500.4050, L300.4310, L501.2450, L100.0100 ####[facility] [address] [place], [address] Emergency Department Summary on 11-12-2024 Emergency Department Summary Normal [facility] Epithelial cells.squamous LM Ql (Urine sed)Ordered By: Austin Mack on 11-12-2024 Epithelial cells.squamous LM.HPF (Urine sed) [#/Area] 0 /[HPF] 5-10 [facility] Glucose Ql (U)Ordered By: Kelton Mack on 11-12-2024 Urine Glucose (UA) Normal mg/dl Normal [facility] H AND P Exam - Hospitaliston 11-12-2024 H&P Exam - Hospitalist Normal [facility] normalized rat io (INR) calculationOrdered By: Austin Mack on 11-12-2024 INR Coag (Bld) [Relative time] 1.1 {INR} [facility] Ketones Test strip Ql (U)Ord ered By: Austin Mack on 11-12-2024 Ketones Ql (U) 5 mg/dl High Negative [facility] Lipaseon 11-12-2024 Lipase [Catalytic activity/Vol] 154 U/L High 13-75 [facility] Comment on above: Result Comment: Elise brunson note:LIPASE revised reference range effective 22.New Lipase methodology. Expected to produce lower valuesthan the previous assay method.NEW Reference Range: 13 - 75 U/L Performed By: #### L 300.3900, L500.4050, L300.4310, L501.2450, L100.0100 ####[facility] [address] [place], [place], [id number] Lipase measurementOrdered By : Austin Mack on 11-12-2024 Lipase [Catalytic activity/Vol] 154 U/L High 13-75 [facility] Comment on above: Please note:LIPASE r evised reference range effective 22. New Lipase methodology. Expected to produce lower values than the previous assay method. NEW Reference Range: 13 - 75 U/L Lower GI hemoglobin IA Ql (S tl)Ordered By: Mae Horton on 11-12-2024 Stool Occult Blood (MAXWELL) Positive Abnormal [facility] Microscopic analysis of urin e for red blood cells (RBC)Ordered By: Austin Mack on 11-12-2024 Microscopic analysis of urine for red blood cells (RBC) 0 SEEN /hpf 0-5 [facility] Urine RBC 0 SEEN /hpf 0-5 [facility] Mucus LM Ql (Urine sed)Order ed By: Austin Mack on 11-12-2024 Mucus Ql (Urine sed) 0 SEEN /hpf [facility] Nitrite Test strip Ql (U)Ord ered By: Austin Mack on 11-12-2024 Nitrite Ql (U) Negative Negative [facility] Partial Thromboplast Timeon 11-12-2024 aPTT Coag (Bld) [Time] 26.4 s Normal 24.1-36.2 [facility] Comment on above: Performed By: #### L 300.3900, L500.4050, L300.4310, L501.2450, L100.0100 ####[facility] [address] [place], [address] Protein Test strip Ql (U)Ord ered By: Austin Mack on 11-12-2024 Protein Ql (U) 30 mg/dl High Negative [facility] Prothrombin Time w/INRon INR Coag (PPP) [Relative time] 1.1 {INR} Normal [facility] Comment on above: Performed By: #### L 300.3900, L500.4050, L300.4310, L501.2450, L100.0100 ####[facility] [address] [place], [address] PT Coag (PPP) [Time] 14.2 s Normal 11.7-14.9 [facility] Comment on above: Performed By: #### L 300.3900, L500.4050, L300.4310, L501.2450, L100.0100 ####[facility] [address] [place], [address] Prothrombin timeOrdered By: Austin Mack on 11-12-2024 PT Coag (PPP) [Time] 14.2 s 11.7-14.9 [facility] Squamous epithelial cells de tection in urine sediment by light microscopyOrdered By: Austin Mack on 11-12-2024 Epithelial cells.squamous LM Ql (Urine sed) 0-5 SEEN /hpf 5-10 [facility] Stool Occult Blood iFOBon STOB Positive Normal [facility] Comment on above: Performed By: #### M 100.7900, M100.637 ####[facility] [address] [place], [address] Stool enteric pathogen panel by probe and target amplification methodOrdered By: Mae Horton on 11-12-2024 Enteric Bacteriology [facility] Stool gastrointestinal hemog lobin detection by immunologic methodOrdered By: Mae Horton on 11-12-2024 Lower GI hemoglobin IA Ql (Stl) Positive Abnormal [facility] Urinalysis, Completeon 11-12 BACTERIA RARE Normal None Seen [facility] Comment on above: Order Comment: CLEAN CATCH Performed By: #### L 400.0001 ####[facility] [address] [place], [address] EPI,SQUAMOUS 0-5 SEEN Normal 5-10 [facility] Comment on above: Order Comment: CLEAN CATCH Performed By: #### L 400.0001 ####[facility] [address] [place], [address] RBC 0 SEEN Normal 0-5 [facility] Comment on above: Order Comment: CLEAN CATCH Performed By: #### L 400.0001 ####[facility] [address] [place], [place], [id number] WBC 0-5 SEEN Normal 0-5 [facility] Comment on above: Order Comment: CLEAN CATCH Performed By: #### L 400.0001 ####[facility] [address] [place], [place], [address] Mucus Ql (Urine sed) 0 SEEN Normal [facility] Comment on above: Order Comment: CLEAN CATCH Performed By: #### L 400.0001 ####[facility] [address] [place], [place], [id number] Urine blood detectionOrdered By: Austin Mack on 11-12-2024 Urine Occult Blood Negative Negative [facility] Urine clarityOrdered By: Stephanie Mack on 11-12-2024 Clarity (U) Clear Clear [facility] Urine color determinationOrd ered By: Austin Mack on 11-12-2024 Color (U) Yellow Yellow [facility] Urine glucose detectionOrder ed By: Austin Mack on 11-12-2024 Glucose Ql (U) Normal mg/dl Normal [facility] Urine leukocyte esterase det ection by dipstickOrdered By: Austin Mack on 11-12-2024 Leukocyte esterase Test strip Ql (U) Negative Negative [facility] Urine pHOrdered By: Austin palumbo on 11-12-2024 pH (U) 6.0 [pH] 5.0 - 8.0 [facility] Urine sediment bacteria coun t by microscopy (number/high power field)Ordered By: Austin Mack on 11-12-2024 Bacteria LM.HPF (Urine sed) [#/Area] RARE /hpf None Seen [facility] Urine specific gravity measu rementOrdered By: Austin Mack on 11-12-2024 Specific gravity (U) [Rel density] 1.015 1.002-1.030 [facility] Urine urobilinogen measureme ntOrdered By: Austin Mack on 11-12-2024 Urobilinogen Ql (U) 1 mg/dl High Normal [facility] Urobilinogen Ql (U)Ordered B y: Austin Mack on 11-12-2024 Urobilinogen (U) [Mass/Vol] 1 mg/dL High Normal [facility] White blood cell countOrdere d By: Austin Mack on 11-12-2024 Urine WBC 0-5 SEEN /hpf 0-5 [facility] White blood cell count 0-5 SEEN /hpf 0-5 [facility] aPTT Coag (PPP) [Time]Ordere d By: Austin Mack on 11-12-2024 aPTT Coag (Bld) [Time] 26.4 s 24.1-36.2 [facility] PET/CT Tumor Base -Thigh Ini ton 11-11-2024 PET/CT Tumor Base -Thigh Init Normal [facility] CNOVSPon 11-05-2024 CNOVSP Visit (SP) Office (PJ) BETSY RODRIGEZ ([id number]) 1955 F Date Time Provider Department 11/05/24 [...] 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 Johnson Dysphagia Dr. Stiles Ectopic 1991 GERD (gastroesophageal reflux disease) History of prediabetes Hyperlipidemia Hypertension Hypothyroidism Obesity (BMI 30.0-34.9) Other pulmonary embolism without acute cor pulmonale (HCC) Pneumonia due to [facility]- virus Requiring intubation PAST SURGICAL HISTORY Procedure [...] Known Problems Brother Stroke Maternal Grandmother or [place], patient unsure Coronary Artery Disease Maternal Grandfather [...] Headache Remeron [Mirtazapin* Other: See Comments Fatigue Pkhadsr-Gcw-Ohe Red* Myalgia [place] Unknown Zetia [Ezetimibe] Myalgia CURRENT OUTPATIENT MEDICATIONS: [...] not taking: Reported on 11/05/2024) mv,jaci,iron,mn/folic acid/chol (LQIM-WVLC-LRWPR, PABA, ORAL) Take 1 tablet by mouth [...] distress, a (more content not included)... Normal [facility] 11-05-2024 [facility] Telephone (PJ) BETSY RODRIGEZ ([id number]) 1955 F Date Time Provider Department 11/05/24 [...] 14 - Other: See Comments Comments: Fatigue LMQPELK-QPE-OGO REDUCTASE INHIBIT*11/14/2017 17 - Myalgia [facility] 10/06/2017 [...] as needed for pain. - mv,jaci,iron,mn/folic acid/chol (ZVPZ-OQQD-RFNVV, PABA, ORAL) Take 1 tablet by mouth [...] Encounter Status:Closed by JEN BRIGGS on 11/13/24 [facility] BET[facility] RODRIGE[facility] ([id number]) 1955 F Date Time Provider Department 11/04/24 [facility] During your visit today, we recorded the following information about you: Terri Dowell RN 11/04/2024 12:18 PM Signed Roxann Gomez CNP [facility] calls and is requesting PCP to [...] this to Dr. Robbins to review as Krystin Curtis LPN 11/04/2024 5:02 PM Signed Scan on 11/04/2024 1:33 PM by Provider, Vonnie, MU: Consultation - Pulmonary Allergies As of Date: 11/04/2024 Noted Allergy Reaction MEAGAN INHIBITORS 10/06/2017 2 - Rash CODEINE 10/06/2017 11 - Vomiting 14 - Other: See Comments Comments: Headache REMERON (MIRTAZAPINE) 01/17/2021 14 - Other: See Comments Comments: Fatigue SRSDHKZ-EPC-JOM REDUCTASE INHIBIT*11/14/2017 17 - Myalgia WALNUT 10/06/2017 16 - Unknown ZETIA (EZETIMIBE) 01/17/2021 17 - Myalgia Date Reviewed: 10/30/2024 Reviewed by: Viridiana Torres, RT(R) - Fully Assessed Reason for Visit: Return Call Request [[id number]] Prescriptions as of 11/12/2024 - ondansetron orally [...] as needed for pain. - mv,jaci,iron,mn/folic acid/chol (GJSZ-SCSH-YXUMG, PABA, ORAL) Take 1 tablet by mouth [...] Encounter Status:Closed by TERRI DOWELL on 11/12/24 [facility] RODRIGE[facility] ([id number]) 1955 F Date Time Provider Department 11/03/24 [...] reschedule after patient has pet scan at [facility]. Daughter states wait until results from [...] 14 - Other: See Comments Comments: Fatigue FWNGVTB-PHY-RCI REDUCTASE INHIBIT*11/14/2017 17 - Myalgia WALNUT 10/06/2017 [...] as needed for pain. - mv,jaci,iron,mn/folic acid/chol (VUKP-INVE-WTKJI, PABA, ORAL) Take 1 tablet by mouth [...] Status:Closed by JOYCE CISNEROS on 11/03/24 Normal [facility] Pulmonary Visit Reporton Pulmonary Visit Report Normal [facility] 10-31-2024 CNPN Telephone ([facility]) BETSY RODRIGEZ ([id number]) 1955 F Date Time Provider Department 10/31/24 GIRISH LEMOS [facility] During your visit today, we recorded the following information about you: Chacho Ambriz LPN 10/31/2024 12:13 PM Signed Pt called to request a copy of the disk for the CT of chest pt had done 10/30/24. Pt has an apt on 11-21-24 at [facility] with Pulmonology. Pt is trying to get this moved up. Please advise pt when the disk is done. 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 RADIOLOGY Pt is aware Allergies As of Date: 10/31/2024 Noted Allergy Reaction MEAGAN INHIBITORS 10/06/2017 2 - Rash CODEINE 10/06/2017 11 - Vomiting 14 - Other: See Comments Comments: Headache REMERON (MIRTAZAPINE) 01/17/2021 14 - Other: See Comments Comments: Fatigue GIMSWKA-LHE-IKC REDUCTASE INHIBIT*11/14/2017 17 - Myalgia WALNUT 10/06/2017 [...] as needed for pain. - mv,jaci,iron,mn/folic acid/chol (KCQZ-OQCV-QBWPM, PABA, ORAL) Take 1 tablet by mouth [...] Encounter Status:Closed by CHACHO AMBRIZ on 11/03/24 Normal [facility] CNPNon 10-30-2024 CNPN Telephone (FAMPWS) BETSY RODRIGEZ ([id number]) 1955 F Date Time Provider Department 10/30/24 [facility] During your visit today, we recorded the [...] 14 - Other: See Comments Comments: Fatigue ALOROCZ-XPF-CVM REDUCTASE INHIBIT*11/14/2017 17 - Myalgia WALNUT 10/06/2017 16 - Unknown ZETIA (EZETIMIBE) 01/17/2021 17 - Myalgia Date Reviewed: 10/30/2024 Reviewed by: Viridiana Torres, RT(R) - Fully Assessed Reason for Visit: Patient Request [[id number]] Prescriptions as of 10/30/2024 - ondansetron orally [...] as needed for pain. - mv,jaci,iron,mn/folic acid/chol (BVFM-URUY-CVSSS, PABA, ORAL) Take 1 tablet by mouth [...] Status:Closed by POONAM DENISE on 10/30/24 Normal [facility] CT CHEST W IVCONon CT CHEST W IVCON * * *Final Report* * * DATE OF EXAM: Oct 30 2024 8:41AM [facility] 0539 - CT CHEST W IVCON [...] lesion 2. Mediastinal and left hilar lymphadenopathy [employer] Plant Operations Engineer: CHRISTY Transcribe Date/Time: Oct 30 2024 9:39A Dictated by : MADHU CORNELL MD This examination was interpreted and the report reviewed and electronically signed by: MADHU CORNELL MD on Oct 30 2024 9:52AM EST [id number] Normal [facility] CT Chest W contrast Rosalino IMPRESSION: 1. Irregular left upper lobe perihilar mass which could represent a primary lung malignancy or metastatic lesion 2. Mediastinal and left hilar lymphadenopathy [employer] Plant Operations Engineer: PSCB Transcribe Date/Time: Oct 30 2024 9:39A Dictated by : MADHU CORNELL MD This examination was interpreted and the report reviewed and electronically signed by: MADHU CORNELL MD on Oct 30 2024 9:52AM EST DIVISION OF RADIOLOGY * * *Final Report* * * DATE OF EXAM: Oct 30 2024 8:41AM [facility] 0539 - CT CHEST W IVCON [...] No additional findings. DIVISION OF RADIOLOGY Provider, [facility] [place] - 10/30/2024 * * *Final Report* * * DATE OF EXAM: Oct 30 2024 8:41AM [facility] 0539 - CT CHEST W IVCON [...] lesion 2. Mediastinal and left hilar lymphadenopathy [employer] Plant Operations Engineer: PSCB Transcribe Date/Time: Oct 30 2024 9:39A Dictated by : MADHU CORNELL MD This examination was interpreted and the report reviewed and electronically signed by: MADHU CORNELL MD on Oct 30 2024 9:52AM EST [facility] Radiology Study observation (narrative) Anant schneider [facility] CT Chest W contrast IVOrdere d By: [facility] Provider on 10-30-2024 [facility] CNPNon 10-22-2024 CNPN Telephone (FAMPWS) BETSY RODRIGEZ ([id number]) 1955 F Date Time Provider Department 10/22/24 GIRISH LEMOS [facility] During your visit today, we recorded the following information about you: Phylicia Heredia RN 10/22/2024 3:37 PM Signed Patient calls upset that the CT scan of her chest order has been cancelled four times. Patient requests order be sent to [facility] to see if they can see her any sooner that [facility]. Faxed per request to [phone]. Submitted PA to [employer] and [employer]. Phylicia Heredia RN Allergies As of Date: 10/22/2024 Noted Allergy Reaction MEAGAN INHIBITORS 10/06/2017 2 - Rash CODEINE 10/06/2017 11 - Vomiting 14 - Other: See Comments Comments: Headache REMERON (MIRTAZAPINE) 01/17/2021 14 - Other: See Comments Comments: Fatigue ZNEMWFJ-RSK-FRC REDUCTASE INHIBIT*11/14/2017 17 - Myalgia WALNUT 10/06/2017 [...] as needed for pain. - mv,jaci,iron,mn/folic acid/chol (TNFQ-SDCY-PSNOS, PABA, ORAL) Take 1 tablet by mouth [...] Status:Closed by PHYLICIA HEREDIA on 10/22/24 Normal [facility] CNPNon 10-20-2024 CNPN Telephone (FAMWS) BETSY RODRIGEZ ([id number]) 1955 F Date Time Provider Department 10/20/24 GIRISH LEMOS [facility] During your visit today, we recorded the following information about you: Mae Wong MA 10/20/2024 10:10 AM Signed ----- Message from Girish Lemos MD sent at 10/19/2024 2:20 PM EST ----- Normal alpha fetoprotein level. Follow up with CT chest and referrals as discussed in office. Mae Wong MA 10/20/2024 10:11 AM Signed Pt notified of results via [employer]. Mae Wong Ma Allergies As of Date: 10/20/2024 Noted Allergy Reaction MEAGAN INHIBITORS 10/06/2017 2 - Rash CODEINE 10/06/2017 11 - Vomiting 14 - Other: See Comments Comments: Headache REMERON (MIRTAZAPINE) 01/17/2021 14 - Other: See Comments Comments: Fatigue CKNIHJD-ETU-GKK REDUCTASE INHIBIT*11/14/2017 17 - Myalgia WALNUT 10/06/2017 [...] as needed for pain. - mv,jaci,iron,mn/folic acid/chol (XGMX-KHEQ-JFHVS, PABA, ORAL) Take 1 tablet by mouth [...] Encounter Status:Closed by MAE WONG on 10/20/24 [facility] ([id number]) 1955 F Date Time Provider Department 10/20/24 BARABRA LEE During your visit today, we recorded [...] 14 - Other: See Comments Comments: Fatigue HYBRVXS-SYI-CHC REDUCTASE INHIBIT*11/14/2017 17 - Myalgia WALNUT 10/06/2017 [...] as needed for pain. - mv,jaci,iron,mn/folic acid/chol (OHRZ-UPZM-JZXWX, PABA, ORAL) Take 1 tablet by mouth [...] Status:Closed by JOYCE CISNEROS on 10/31/24 Normal [facility] AFP SerPl-mCncon 10-17-2024 AFP [Mass/Vol] 6.52 ng/mL Normal <9.00 [facility] Comment on above: Order Comment: Speci men Type: BLOOD SPECIMENOrdering Facility: [facility] Address: [address] [place] [address] Result Comment: The Alpha-Fetoprotein test was performed using the ZipZap DxI immunoenzymatic assay. Results obtained with different assay methods or kits cannot be used interchangeably. Performed By: #### 1 834-1 ####[facility] LABCLIA [id number] [address] [facility] CNOVon 10-17-2024 CNOV Office Visit (FAMPWS) BETSY RODRIGEZ ([id number]) 1955 F Date Time Provider Department 10/17/24 1:00 PM GIRISH LEMOSPWS During your visit today, we [...] pain, currently 5/10. Treating at home with Lynco which Dr. 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 Normal [facility] 10-17-2024 DIAN Telephone (NAVWST) BETSY RODRIGEZ ([id number]) 1955 F Date Time Provider Department 10/17/24 LENNOX BELLAMY During your visit today, we recorded the following information about you: Lennox Bellamy, EQUIPMENT MAINTENANCE TECHNICIAN 10/17/2024 3:56 PM Signed Sw spoke with patient regarding transportation needs. Patient reports that she does live in [place]. Her spouse takes her to [...] a benefit. Patient and Sw also discussed [employer] [place]. Sw provided patient with the number for [employer]. [employer] coordinates local churches in [place] to address needs of residents. Patient notes that she will check with [employer] if insurance is unable to provide transportation [...] 14 - Other: See Comments Comments: Fatigue KNVSNNX-THJ-SZG REDUCTASE INHIBIT*11/14/2017 17 - Myalgia WALNUT 10/06/2017 [...] as needed for pain. - mv,jaci,iron,mn/folic acid/chol (ARJW-AZRW-HPPHU, PABA, ORAL) Take 1 tablet by mouth [...] Status:Closed by LENNOX BELLAMY on 10/20/24 Normal [facility] HAV IgM Ser Qlon 10-17-2024 HAV IgM Ql (S) Negative Normal Negative [facility] Comment on above: Order Comment: Speci men Type: BLOOD SPECIMEN [facility]: [facility] Address: [address] [place] [address] Result Comment: No e vidence of recent infection with Hepatitis A virus. Performed By: #### 2 2314-9, 33947-2, 3 #### [facility] CLIA [id number] [address] [place] [address] [place] HBV core IgM Ser Qlon 2024 HBV core IgM Ql (S) Negative Normal Negative [facility] Comment on above: Order Comment: Speci men Type: BLOOD SPECIMEN [facility]: [facility] Address: [address] [place] [address] Result Comment: No e vidence of recent infection with Hepatitis B virus. Should recent infection be suspected, repeat testing may be considered 3-4 weeks after this draw. Performed By: #### 2 2314-9, 22473-3, 3 #### [facility] CLIA [id number] [address] [place] [address] [place] HBV surface Ag Ser Qlon 09-19 HBV surface Ag Ql (S) Negative Normal Negative [facility] Comment on above: Order Comment: Speci men Type: BLOOD SPECIMEN [facility]ing [facility]: [facility] Address: [address] [place] [address] Performed By: #### 2 2314-9, 09569-9, 3 #### [facility] CLIA [id number] [address] [place] [address] [place] HCV Ab Ser Qlon 10-17-2024 HCV Ab Ql (S) Negative Normal Negative [facility] Comment on above: Order Comment: Speci men Type: BLOOD SPECIMENOrdering Facility: [facility] Address: [address] [place] [address] Result Comment: The result suggests no evidence of active infection with Hepatitis C virus. Should recent infection be suspected, repeat testing may be considered 4-6 weeks after this draw. Performed By: #### 1 6128-1 ####[facility] LABCLIA [id number] [place] [address] [place] Amylase SerPl-cCncon 025 Amylase [Catalytic activity/Vol] 77 U/L Normal 30-104 [facility] Comment on above: Order Comment: Speci men Type: BLOOD SPECIMENOrdering Facility: [facility] Address: [address] [place] [address] Performed By: #### 2 4323-8 ####[facility] CHRISTIANSONWNCLIA [id number] [place] [id number] [place] [address] OF [place]#### 1798-8, 3040-3 ####[facility] LABCLIA [id number] [facility] [place] CBC W Auto Differential pane l (Bld)on 10-16-2024 Basophils (Bld) [#/Vol] 0.07 10*3/uL [facility] Basophils/100 WBC (Bld) 1.5 % [facility] Differential cell count method Nom (Bld) Auto [facility] Eosinophils (Bld) [#/Vol] 0.08 10*3/uL [facility] Eosinophils/100 WBC (Bld) 1.7 % [facility] Erythrocyte distribution width (RBC) [Ratio] 13.2 % 11.5 - 15.0 % [facility] Hematocrit (Bld) [Volume fraction] 42.8 % 36.0 - 46.0 % [facility] Hemoglobin (Bld) [Mass/Vol] 14.3 g/dL 11.5 - 15.5 g/dL [facility] Immature granulocytes (Bld) [#/Vol] [facility] Immature granulocytes/100 WBC (Bld) 0.2 % [facility] Lymphocytes (Bld) [#/Vol] 1.31 10*3/uL [facility] Lymphocytes/100 WBC (Bld) 27.6 % [facility] MCH (RBC) [Entitic mass] 29.1 pg 26. 0 - 34.0 pg [facility] MCHC (RBC) [Mass/Vol] 33.4 g/dL 30.5 - 36.0 g/dL [facility] MCV (RBC) [Entitic vol] 87.2 fL 80.0 - 100.0 fL [facility] Monocytes (Bld) [#/Vol] 0.66 10*3/uL [facility] Monocytes/100 WBC (Bld) 13.9 % [facility] Neutrophils (Bld) [#/Vol] 2.61 10*3/uL [facility] Neutrophils/100 WBC (Bld) 55.1 % [facility] Nucleated RBC (Bld) [#/Vol] NINF [facility] Nucleated RBC/100 WBC (Bld) [Ratio] 0.0 % /100 WBC [facility] Platelet mean volume (Bld) [Entitic vol] 11.5 fL 9.0 - 12.7 fL [facility] Platelets (Bld) [#/Vol] 318 10*3/uL [facility] RBC (Bld) [#/Vol] 4.91 10*6/uL 3.90 - 5.2 0 m/uL [facility] WBC (Bld) [#/Vol] 4.74 10*3/uL [facility] Basophils (Bld) [#/Vol] 0.07 10*3/uL Normal <0.11 [facility] Comment on above: Order Comment: Speci men Type: BLOOD SPECIMENOrdering Facility: [facility] Address: [address] [place] [address] Performed By: #### 5 7021-8 ####[facility] [id number] [place] [address] [place] Basophils/100 WBC (Bld) 1.5 % Normal [facility] Comment on above: Order Comment: Speci men Type: BLOOD SPECIMENOrdering Facility: [facility] Address: [address] [place] [address] Performed By: #### 5 7021-8 ####[facility]ITAL[facility]CL[facility] [id number] [place] [address] [place] Differential cell count method Nom (Bld) Auto Normal [facility] Comment on above: Order Comment: Speci men Type: BLOOD SPECIMENOrdering Facility: [facility] Address: [address] [place] [address] Performed By: #### 5 7021-8 ####[facility] [id number] [place] [address] [place] Eosinophils (Bld) [#/Vol] 0.08 10*3/uL Normal <0.46 [facility] Comment on above: Order Comment: Speci men Type: BLOOD SPECIMENOrdering Facility: [facility] Address: [address] [place] [address] Performed By: #### 5 7021-8 ####[facility] [id number] [place] [address] [place] Eosinophils/100 WBC (Bld) 1.7 % Normal [facility] Comment on above: Order Comment: Speci men Type: BLOOD SPECIMENOrdering Facility: [facility] Address: [address] [place] [address] Performed By: #### 5 7021-8 ####ED [facility] HOSPITALNCMELISSA [id number] [place] [address] [place] Erythrocyte distribution width (RBC) [Ratio] 13.2 % Normal 11.5-15.0 [facility] Comment on above: Order Comment: Speci men Type: BLOOD SPECIMENOrdering Facility: [facility] Address: [address] [place] [address] Performed By: #### 5 7021-8 ####ED [facility]OSPITALNCLIJany [id number] [place] [address] [place] Hematocrit (Bld) [Volume fraction] 42.8 % Normal 36.0-46.0 [facility] Comment on above: Order Comment: Speci men Type: BLOOD SPECIMENOrdering Facility: [facility] Address: [address] [place] [address] Performed By: #### 5 7021-8 ####[facility]ITALNCLIA [id number] [place] [address] [place] Hemoglobin (Bld) [Mass/Vol] 14.3 g/dL Normal 11.5-15.5 [facility] Comment on above: Order Comment: Speci men Type: BLOOD SPECIMENOrdering Facility: [facility] Address: [address] [place] [address] Performed By: #### 5 7021-8 ####[facility] [id number] [place] [address] [place] Immature granulocytes (Bld) [#/Vol] 10*3/uL Normal <0.10 [facility] Comment on above: Order Comment: Speci men Type: BLOOD SPECIMENOrdering Facility: [facility] Address: [address] [place] [address] Performed By: #### 5 7021-8 ####[facility] [id number] [place] [address] [place] Immature granulocytes/100 WBC (Bld) 0.2 % Normal [facility] Comment on above: Order Comment: Speci men Type: BLOOD SPECIMENOrdering Facility: [facility] Address: [address] [place] [address] Performed By: #### 5 7021-8 ####[facility] [id number] [place] [address] [place] Lymphocytes (Bld) [#/Vol] 1.31 10*3/uL Normal 1.00-4.00 [facility] Comment on above: Order Comment: Speci men Type: BLOOD SPECIMENOrdering Facility: [facility] Address: [address] [place] [address] Performed By: #### 5 7021-8 ####[facility] [id number] [place] [address] [place] Lymphocytes/100 WBC (Bld) 27.6 % Normal [facility] Comment on above: Order Comment: Speci men Type: BLOOD SPECIMENOrdering Facility: [facility] Address: [address] [place] [address] Performed By: #### 5 7021-8 ####[facility] MILLAUGUSTOWNCLIA [id number] [place] [address] [place] MCH (RBC) [Entitic mass] 29.1 pg Normal 26.0-34.0 [facility] Comment on above: Order Comment: Speci men Type: BLOOD SPECIMENOrdering Facility: [facility] Address: [address] [place] [address] Performed By: #### 5 7021-8 ####[facility]ITALNCLIA [id number] [place] [address] [place] MCHC (RBC) [Mass/Vol] 33.4 g/dL Normal 30.5-36.0 [facility] Comment on above: Order Comment: Speci men Type: BLOOD SPECIMENOrdering Facility: [facility] Address: [address] [place] [address] Performed By: #### 5 7021-8 ####[facility]ITALNCLIA [id number] [place] [address] [place] MCV (RBC) [Entitic vol] 87.2 fL Normal 80.0-100.0 C [facility] Comment on above: Order Comment: Speci men Type: BLOOD SPECIMENOrdering Facility: [facility] Address: [address] [place] [address] Performed By: #### 5 7021-8 ####[facility] MILLWNCLIA [id number] [place] [address] [place] Monocytes (Bld) [#/Vol] 0.66 10*3/uL Normal <0.87 [facility] Comment on above: Order Comment: Speci men Type: BLOOD SPECIMENOrdering Facility: [facility] Address: [address] [place] [address] Performed By: #### 5 7021-8 ####[facility]ITALNCLIA [id number] [place] [address] [place] Monocytes/100 WBC (Bld) 13.9 % Normal [facility] Comment on above: Order Comment: Speci men Type: BLOOD SPECIMENOrdering Facility: [facility] Address: [address] [place] [address] Performed By: #### 5 7021-8 ####[facility] [id number] [place] [address] [place] Neutrophils (Bld) [#/Vol] 2.61 10*3/uL Normal 1.45-7.50 [facility] Comment on above: Order Comment: Speci men Type: BLOOD SPECIMENOrdering Facility: [facility] Address: [address] [place] [address] Performed By: #### 5 7021-8 ####[facility] [id number] [place] [address] [place] Neutrophils/100 WBC (Bld) 55.1 % Normal [facility] Comment on above: Order Comment: Speci men Type: BLOOD SPECIMENOrdering Facility: [facility] Address: [address] [place] [address] Performed By: #### 5 7021-8 ####[facility] [id number] [place] [address] [place] Nucleated RBC (Bld) [#/Vol] 10*3/uL Normal <0.01 [facility] Comment on above: Order Comment: Speci men Type: BLOOD SPECIMENOrdering Facility: [facility] Address: [address] [place] [address] Performed By: #### 5 7021-8 ####[facility] [id number] [place] [address] [place] Nucleated RBC/100 WBC (Bld) [Ratio] 0.0 /100 WBC Normal [facility] Comment on above: Order Comment: Speci men Type: BLOOD SPECIMENOrdering Facility: [facility] Address: [address] [place] [address] Performed By: #### 5 7021-8 ####[facility] SAMMYBevNCMELISSA [id number] [place] [address] [place] Platelet mean volume (Bld) [Entitic vol] 11.5 fL Normal 9.0-12.7 [facility] Comment on above: Order Comment: Speci men Type: BLOOD SPECIMENOrdering Facility: [facility] Address: [address] [place] [address] Performed By: #### 5 7021-8 ####[facility]OSPITALNCKRISTIN [id number] [place] [address] [place] Platelets (Bld) [#/Vol] 318 10*3/uL Normal 150-400 [facility] Comment on above: Order Comment: Speci men Type: BLOOD SPECIMENOrdering Facility: [facility] Address: [address] [place] [address] Performed By: #### 5 7021-8 ####[facility]ITAL[facility]CLIA [id number] [place] [address] [place] RBC (Bld) [#/Vol] 4.91 10*6/uL Normal 3.90-5.20 [facility] Comment on above: Order Comment: Speci men Type: BLOOD SPECIMENOrdering Facility: [facility] Address: [address] [place] [address] Performed By: #### 5 7021-8 ####[facility]ITAL[facility]CL[facility] [id number] [place] [address] [place] WBC (Bld) [#/Vol] 4.74 10*3/uL Normal 3.70-11.00 [facility] Comment on above: Order Comment: Speci men Type: BLOOD SPECIMENOrdering Facility: [facility] Address: [address] [place] [address] Performed By: #### 5 7021-8 ####[facility] [id number] [place] [address] [place] CNOVon 10-16-2024 CNOV Office Visit (FAMPWS) SIMON RODRIGEZBETH Marta ([id number]) 1955 F Date Time Provider Department 10/16/24 8:40 AM OLEG FIELDS During your visit today, we recorded the following information about you: Pulse Respiration Blood pressure Weight 74/minute 14/minute 144/80 73.9 kg Oleg Fields, 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 10/16/2024 8:53 AM Signed Chief Complaint Patient presents with: Abdominal Pain: X 1 month HPI Betsy M Elia is a 68 year old female [...] III (moderate) (HCC) Colon polyp tubular adenoma [address] 07/16 to 08/17 DDD (degenerative disc [...] Cancer Brother lung Stroke Maternal Grandmother or [place], patient unsure Coronary Artery Disease Maternal Grandfather No Known Problems Sister Patient Allergies ALLERGIES Allergen Reactions Meagan Inhibitors Rash Codeine Vomiting, Other: See Comments Headache Remeron [Mirtazapin* Other: See Comments Fatigue Chtcpyc-Wes-Orj Red* Myalgia Buckner Unknown Zetia [Ezetimibe] Myalgia Current Medications Current [...] hours as needed for pain. mv,jaci,iron,mn/folic acid/chol (WZKZ-FBWM-DTYKJ, PABA, ORAL) Take 1 tablet by mouth [...] 05/18/2024 Advance (more content not included)... Normal [facility] BETSY RODRIGEZ ([id number]) 1955 F Date Time Provider Department 10/16/24 OLEG FIELDS [facility] During your visit today, we recorded the following information about you: Oleg Fields APRN.MARINE 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 10/16/2024 1:38 PM Signed Please call patient and schedule follow up with Dr. Lemos for tomorrow to discuss results and care plan. Also let patient know I have ordered follow up labs. Arin Muñoz MA 10/16/2024 3:00 PM Signed Pt notified and scheduled for a follow up tomorrow MELVA Mcfarlane Danielle, APRN.MARINE O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 10/20/2024 10:20 AM Signed Please let patient know her hepatitis panel is negative. Mae Wong MA 10/20/2024 10:40 AM Signed Pt notified of results via [employer]. Mae Wong Ma Allergies As of Date: 10/16/2024 Noted Allergy Reaction MEAGAN INHIBITORS 10/06/2017 2 - Rash CODEINE 10/06/2017 11 - Vomiting 14 - Other: See Comments Comments: Headache REMERON (MIRTAZAPINE) 01/17/2021 14 - Other: See Comments Comments: Fatigue LIPMTCC-CDI-VRN REDUCTASE INHIBIT*11/14/2017 17 - Myalgia WALNUT 10/06/2017 16 - Unknown ZETIA (EZETIMIBE) 01/17/2021 17 - Myalgia Date Reviewed: 10/16/2024 Reviewed by: Viridiana Torres, RT(R) - Fully Assessed Reason for Visit: Results [95] Primary Visit Diagnosis:Abnormal MRI, liver [R93.2] Order(s):CONSULT TO HEPATOLOGY [[id number]] Order #: [id number]: 1 FUTURE IR INTERVENTIONAL RADIOLOGY CONSULT [[id number]] Order #: [id number] HEP ACUTE PANEL BL [SQHACUTP] Order #: [id number] FUTURE Prescriptions as of 10/20/2024 - ondansetron [...] as needed for pain. - mv,jaci,iron,mn/folic acid/chol (MTNN-HZOT-LDNKV, PABA, ORAL) Take 1 tablet by mouth [...] Status:Closed by MAE WONG on 10/20/24 Normal [facility] CT ABD/PEL W IVCONon 025 CT ABD/PEL W IVCON * * *Final Report* * * DATE OF EXAM: Oct 16 2024 11:11AM [facility]BD/PEL W IVCON [...] be communicated with the ordering provider via [employer] staff message or phone message by Imaging Support Services within 2 business days of report finalization. --END OF FINDING-- Algorithms for management of incidental imaging findings can be found on the [facility] Intranet Sharepoint site at: [email or web address] [email or web address] [email or web address]%20Inc idental%20Findi ngs%20at%20Imaging/F orms/AllItems.aspx [employer]ies[employer] Plant Operations Engineer: CHRISTY Transcribe Date/Time: Oct 16 2024 11:46A Dictated by : GRAHAM BUSTILLO MD This examination was interpreted and the report reviewed and electronically signed by: GRAHAM BUSTILLO MD on Oct 16 2024 11:58AM EST [id number] CN ACTIONABLE Invalid Interpretation Code [facility] CT Abdomen and Pelvis W cont rast IVOrdered By: [facility] Provider on 10-16-2024 Radiology Result ACTIONABLE Abnormal [facility] Comment on above: This report contains [...] contact your provider for the next steps. [facility] CT Abdomen and Pelvis W cont rast [...] be communicated with the ordering provider via [employer] staff message or phone message by Imaging Support Services within 2 business days of report finalization. --END OF FINDING-- Algorithms for management of incidental imaging findings can be found on the [facility] Intranet Sharepoint site at: [email or web address] [email or web address] links/Managing%20Inc idental%20Findi ngs%20at%20Imaging/F orms/AllItems.aspx Biodiesel Plant Operations Engineer: CHRISTY Transcribe Date/Time: Oct 16 2024 11:46A Dictated by : GRAHAM BUSTILLO MD This examination was interpreted and the report reviewed and electronically signed by: GRAHAM BUSTILLO MD on Oct 16 2024 11:58AM [facility] DIVISION OF RADIOLOGY * * *Final Report* * * DATE OF EXAM: Oct 16 2024 11:11AM [facility] 0530 - CT ABD/PEL W IVCON [...] No additional findings. DIVISION OF RADIOLOGY Provider, [facility] [place] - 10/16/2024 * * *Final Report* * * DATE OF EXAM: Oct 16 2024 11:11AM [facility] 0530 - CT ABD/PEL W IVCON [...] be communicated with the ordering provider via [employer] staff message or phone message by Imaging Support Services within 2 business days of report finalization. --END OF FINDING-- Algorithms for management of incidental imaging findings can be found on the [facility] Intranet Sharepoint site at: [email or web address] [email or web address] links/Managing%20Inc idental%20Findi ngs%20at%20Imaging/F orms/AllItems.aspx Biodiesel Plant Operations Engineer: PSCCatalina Transcribe Date/Time: Oct 16 2024 11:46A Dictated by : GRAHAM BUSTILLO MD This examination was interpreted and the report reviewed and electronically signed by: GRAHAM BUSTILLO MD on Oct 16 2024 11:58AM EST [facility] Radiology Study observation (narrative) [facility] Comprehensive metabolic 2000 panelOrdered By: Jeanette Streeter on 10-16-2024 Albumin [Mass/Vol] 4.3 g/dL 3.9 - 4.9 g/dL [facility] ALP [Catalytic activity/Vol] 128 U/L High 34 - 123 U/L [facility] ALT [Catalytic activity/Vol] 43 U/L High 7 - 38 U/L [facility] Anion gap [Moles/Vol] 7 mmol/L Low 8 - 15 mmol/L [facility] AST [Catalytic activity/Vol] 117 U/L High 13 - 35 U/L [facility] Bilirubin [Mass/Vol] 0.4 mg/dL 0.2 - 1 .3 mg/dL [facility] Calcium [Mass/Vol] 10.6 mg/dL High 8.5 - 10. 2 mg/dL [facility] Chloride [Moles/Vol] 106 mmol/L 98 - 10 7 mmol/L [facility] CO2 [Moles/Vol] 27 mmol/L 22 - 30 mmol/L [facility] Creatinine [Mass/Vol] 0.86 mg/dL 0.58 - 0.96 mg/dL [facility] GFR/1.73 sq M.predicted among non-blacks MDRD (S/P/Bld) [Vol rate/Area] 73 mL/min/{1.73_m2} - PINF [facility] Comment on above: Estimated Glomerular Filtration Rate [...] 108 mg/dL High 74 - 99 mg/dL [facility] Comment on above: The [place] Diabete s Association (ADA) provides guidance for [...] Standards of Medical Care in Diabetes 2016, [place] [employer] Association. Diabetes Care. 2016.39(Suppl 1). Potassium [Moles/Vol] 4.3 mmol/L 3.7 - 5.1 mmol/L [facility] Protein [Mass/Vol] 7.3 g/dL 6.3 - 8.0 g/dL [facility] Sodium [Moles/Vol] 140 mmol/L 136 - 144 mmol/L [facility] Urea nitrogen [Mass/Vol] 16 mg/dL 7 - 21 mg/d L [facility] Comprehensive metabolic 2000 panelon 10-16-2024 Albumin [Mass/Vol] 4.3 g/dL Normal 3.9-4.9 [facility] Comment on above: Order Comment: Speci men Type: BLOOD SPECIMENOrdering Facility: [facility] Address: [address] [place] [address] Performed By: #### 2 4323-8 ####[facility] MILLTOWNCLIA [id number] [place] [address] [place]#### 1798-8, 3040-3 ####[facility] LABCLIA [id number] [place] [address] [place] ALP [Catalytic activity/Vol] 128 U/L High 34-123 [facility] Comment on above: Order Comment: Speci men Type: BLOOD SPECIMENOrdering Facility: [facility] Address: [address] [place] [address] Performed By: #### 2 4323-8 ####[facility] MILLTOWNCLIA [id number] [place] [address] [place]#### 1798-8, 3040-3 ####[facility] LABCLIA [id number] [place] [address] [place] ALT [Catalytic activity/Vol] 43 U/L High 7-38 [facility] Comment on above: Order Comment: Speci men Type: BLOOD SPECIMENOrdering Facility: [facility] Address: [address] [place] [address] Performed By: #### 2 4323-8 ####[facility] MILLTOWNCLIA [id number] [place] [address] [place]#### 1798-8, 3040-3 ####[facility] LABCLIA [id number] [place] [address] [place] Anion gap [Moles/Vol] 7 mmol/L Low 8-15 [facility] Comment on above: Order Comment: Speci men Type: BLOOD SPECIMENOrdering Facility: [facility] Address: [address] [place] [address] Performed By: #### 2 4323-8 ####[facility] MILLTOWNCLIA [id number] [place] [address] [place]#### 1798-8, 3040-3 ####[facility] LABCLIA [id number] [place] [address] [place] AST [Catalytic activity/Vol] 117 U/L High 13-35 [facility] Comment on above: Order Comment: Speci men Type: BLOOD SPECIMENOrdering Facility: [facility] Address: [address] [place] [address] Performed By: #### 2 4323-8 ####[facility]ITAL[facility]CL[facility] [id number] [place] [address] [place]#### 1798-8, 3040-3 ####[facility] LABCLIA [id number] [place] [address] [place] Bilirubin [Mass/Vol] 0.4 mg/dL Normal 0.2-1.3 [facility] Comment on above: Order Comment: Speci men Type: BLOOD SPECIMENOrdering Facility: [facility] Address: [address] [place] [address] Performed By: #### 2 4323-8 ####[facility] MILLTOWNCLIA [id number] [place] [address] [place]#### 1798-8, 3040-3 ####[facility] LABCLIA [id number] [place] [address] [place] Calcium [Mass/Vol] 10.6 mg/dL High 8.5-10.2 [facility] Comment on above: Order Comment: Speci men Type: BLOOD SPECIMENOrdering Facility: [facility] Address: [address] [place] [address] Performed By: #### 2 4323-8 ####[facility] MILLTOWNCLIA [id number] [place] [address] [place]#### 1798-8, 3040-3 ####[facility] LABCLIA [id number] [place] [address] [place] Chloride [Moles/Vol] 106 mmol/L Normal 98-107 [facility] Comment on above: Order Comment: Speci men Type: BLOOD SPECIMENOrdering Facility: [facility] Address: [address] [place] [address] Performed By: #### 2 4323-8 ####[facility]ITAL[facility]CL[facility] [id number] [place] [address] [place]#### 1798-8, 3040-3 ####[facility] LABCLIA [id number] [place] [address] [place] CO2 [Moles/Vol] 27 mmol/L Normal 22-30 [facility] Comment on above: Order Comment: Speci men Type: BLOOD SPECIMENOrdering Facility: [facility] Address: [address] [place] [address] Performed By: #### 2 4323-8 ####[facility] MILLTOWNCLIA [id number] [place] [address] [place]#### 1798-8, 3040-3 ####[facility] LABCLIA [id number] [place] [address] [place] Creatinine [Mass/Vol] 0.86 mg/dL Normal 0.58-0.96 [facility] Comment on above: Order Comment: Speci men Type: BLOOD SPECIMENOrdering Facility: [facility] Address: [address] [place] [address] Performed By: #### 2 4323-8 ####[facility] [id number] [place] [address] [place]#### 1798-8, 3040-3 ####[facility] [id number] [place] [address] [place] Creatinine and Glomerular filtration rate.predicted panel (S/P/Bld) 73 mL/min/1.73m??? Normal >=60 [facility] Comment on above: Order Comment: Pati fajardo Type: BLOOD SPECIMENOrdering Facility: [facility] Address: [address] [place] [address] Result Comment: Jazlyn mated Glomerular Filtration Rate [...] actual GFR. Performed By: #### 2 4323-8 ####[facility]ITAL[facility]CLIA [id number] [place] [address] [place]#### 1798-8, 3040-3 ####[facility] LABIA [id number] [place] [address] [place] Glucose [Mass/Vol] 108 mg/dL High 74-99 [facility] Comment on above: Order Comment: Pati tana Type: BLOOD SPECIMENOrdering Facility: [facility] Address: [address] [place] [address] Result Comment: The [place] Diabetes Association (ADA) provides guidance for cutoff [...] Standards of Medical Care in Diabetes 2016, [place] Diabetes Association. Diabetes Care. 2016.39(Suppl 1). Performed By: #### 2 4323-8 ####[facility] MILLWNCLIA [id number] [place] [address] [place]#### 1798-8, 0-3 ####[facility] LABCLIA [id number] [place] [address] [place] Potassium [Moles/Vol] 4.3 mmol/L Normal 3.7-5.1 [facility] Comment on above: Order Comment: Speci men Type: BLOOD SPECIMENOrdering Facility: [facility] Address: [address] [place] [address] Performed By: #### 2 4323-8 ####[facility] [id number] [place] [address] [place]#### 1798-8, 0-3 ####[facility] LABCLIA [id number] [place] [address] [place] Protein [Mass/Vol] 7.3 g/dL Normal 6.3-8.0 [facility] Comment on above: Order Comment: Speci men Type: BLOOD SPECIMENOrdering Facility: [facility] Address: [address] [place] [address] Performed By: #### 2 4323-8 ####[facility]ITALWNCLIA [id number] [place] [address] [place]#### 1798-8, 3040-3 ####[facility] LABCLIA [id number] [address] [address] [place] Sodium [Moles/Vol] 140 mmol/L Normal 136-144 [facility] Comment on above: Order Comment: Speci men Type: BLOOD SPECIMENOrdering Facility: [facility] Address: [address] [place] [address] Performed By: #### 2 4323-8 ####[facility] MILLTOWNCLIA [id number] [place] [address] [place]#### 1798-8, 3039-3 ####[facility] LABCLIA [id number] [place] [address] [place] Urea nitrogen [Mass/Vol] 16 mg/dL Normal 7-21 [facility] Comment on above: Order Comment: Speci men Type: BLOOD SPECIMENOrdering Facility: [facility] Address: [address] [place], [place] [address] Performed By: #### 2 4323-8 ####[facility] MILLWNCLIA [id number] [place] [address] [place]#### 1798-8, 3039-3 ####[facility] LABCLIA [id number] [place] [address] [place] Lipase SerPl-cCncon 10-16-19 25 Lipase [Catalytic activity/Vol] 77 U/L High 16-61 [facility] Comment on above: Order Comment: Speci men Type: BLOOD SPECIMENOrdering Facility: [facility] Address: [facility] [place] [id number] Performed By: #### 2 4323-8 ####[facility] MILLTOWNCLIA [id number] [place] [address] [place]#### 1798-8, 0-3 ####[facility] LABCLIA [id number] [facility] [id number] [id number] [place] No Panel InformationOrdered By: [facility] Provider on 10-16-2024 Interpretation and review of laboratory results Abnormal [facility] CNOVon 09-19-2024 CNOV Office Visit (FAMPWS) BETSY RODRIGEZ ([id number]) 1955 F Date Time Provider Department 09/19/24 9:40 AM [facility] During your visit today, we recorded the following information about you: Pulse Respiration Blood pressure Weight 73/minute 18/minute 124/68 74.9 kg Girish Lemos MD 09/19/2024 1:08 PM Signed Chief Complaint Patient presents with: Blood Pressure: Recheck-losartan increased to 50mg.No note of call back from [facility] [place] around 09/03/24 as requested with readings. 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 Johnson Dysphagia Dr. Stiles Ectopic 1991 GERD (gastroesophageal reflux disease) History of prediabetes Hyperlipidemia Hypertension Hypothyroidism Obesity (BMI 30.0-34.9) Other pulmonary embolism without acute cor pulmonale (HCC) Pneumonia due to [facility]- virus Requiring intubation Previous Surgical History [...] Cancer Brother lung Stroke Maternal Grandmother or [place], patient unsure Coronary Artery Disease Maternal Grandfather No Known Problems Sister Patient Allergies ALLERGIES Allergen Reactions Meagan Inhibitors Rash Codeine Vomiting, Other: See Comments Headache Remeron [Mirtazapin* Other: See Comments Fatigue Hxvykrv-Qme-Afj Red* Myalgia Buckner Unknown Zetia [Ezetimibe] Myalgia Current Medications Current [...] mouth two times a day. mv,jaci,iron,mn/folic acid/chol (HLMX-FYMY-GBITD, PABA, ORAL) Take 1 tablet by mouth [...] Use Topic (more content not included)... Normal [facility] Alexandrea [facility] BET[facility]ODRIGE[facility] ([id number]) 1955 F Date Time Provider Department 08/27/24 GIRISH LEMOS [facility] During your visit today, we recorded the following information about you: Marta Meadows, RN 08/27/2024 9:44 AM Signed Jeanne- [facility] [place]- reports she received a referral from patient's insurance company, once patient's losartan was increased, for their 3 mth monitoring program. [facility] monitors quality of life, checks VS's, [...] 10:51 AM Signed Jeanne- [facility] [place] called and is notified of providers message and instructions. She voices understanding and will send updated Bps in one week. Rachael Baker RN Allergies As of Date: 08/27/2024 Noted Allergy Reaction MEAGAN INHIBITORS 10/06/2017 2 - Rash CODEINE 10/06/2017 11 - Vomiting 14 - Other: See Comments Comments: Headache REMERON (MIRTAZAPINE) 01/17/2021 14 - Other: See Comments Comments: Fatigue HGLPRYO-XBO-LPI REDUCTASE INHIBIT*11/14/2017 17 - Myalgia WALNUT 10/06/2017 [...] as needed for pain. 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 Johnson Dysphagia Dr. Stiles Ectopic 1991 GERD (gastroesophageal reflux disease) History of prediabetes Hyperlipidemia Hypertension Hypothyroidism Obesity (BMI 30.0-34.9) Other pulmonary embolism without acute cor pulmonale (HCC) [facility]- virus Requiring intubation ALLERGIES Meagan Inhibitors, Codeine, Remeron [Mirtazapine], Smcfxtg-Bui-Dah Reductase Inhibitors, Buckner, and Zetia [Ezetimibe] MEDICATIONS Current Outpatient Medications [...] hours as needed for pain. mv,jaci,iron,mn/folic acid/chol (MABC-DLWC-SCPVA, PABA, ORAL) Take 1 tablet by mouth [...] to treatmen (more content not included)... Normal [facility] CNOVon 07-15-2024 CNOV Office Visit (FAMWS) BETSY RODRIGEZ ([id number]) 1955 F Date Time Provider Department 07/15/24 [...] No. 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 Last visit in May. 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 Johnson Dysphagia Dr. Stiles Ectopic 1991 GERD (gastroesophageal reflux disease) History of prediabetes Hyperlipidemia Hypertension Hypothyroidism Obesity (BMI 30.0-34.9) Other pulmonary embolism without acute cor pulmonale (HCC) Pneumonia due to [facility]- virus Requiring intubation ALLERGIES Meagan Inhibitors, Codeine, Remeron [Mirtazapine], Enlfasj-Cbx-Vfd Reductase Inhibitors, Buckner, and Zetia [Ezetimibe] MEDICATIONS Current Outpatient Medications [...] hours as needed for pain. mv,jaci,iron,mn/folic acid/chol (RJFC-QSVZ-GCEPM, PABA, ORAL) Take 1 tablet by mouth [...] - 7 (more content not included)... Normal [facility] Comprehensive metabolic 2000 panelon 07-15-2024 Albumin [Mass/Vol] 4.5 g/dL Normal 3.9-4.9 [facility] Comment on above: Order Comment: Speci men Type: BLOOD SPECIMEN [facility] Address: [address] [place] [address] Performed By: #### 2 2314-9, 92566-8, 5194-3 #### [facility] CLIA [id number] [address] [place] [address] [place] ALP [Catalytic activity/Vol] 86 U/L Normal 34-123 [facility] Comment on above: Order Comment: Speci men Type: BLOOD SPECIMEN [facility] Address: [address] [place] [address] Performed By: #### 2 2314-9, 97104-6, 3 #### [facility] CLIA [id number] [address] [place] [address] [place] ALT [Catalytic activity/Vol] 20 U/L Normal 7-38 [facility] Comment on above: Order Comment: Speci men Type: BLOOD SPECIMEN [facility] Address: [address] [place] [address] Performed By: #### 2 2314-9, 16982-0, 5194-11 #### [facility] CLIA [id number] [address] [place] [address] [place] Anion gap [Moles/Vol] 11 mmol/L Normal 8-15 [facility] Comment on above: Order Comment: Speci men Type: BLOOD SPECIMEN [facility] Address: [address] [place] [address] Performed By: #### 2 2314-9, 24561-8, 5194-11 #### [facility] CLIA [id number] [address] [place] [address] [place] AST [Catalytic activity/Vol] 27 U/L Normal 13-35 [facility] Comment on above: Order Comment: Speci men Type: BLOOD SPECIMEN [facility] Address: [address] [place] [address] Performed By: #### 2 2314-9, 48663-6, 5194-11 #### [facility] CLIA [id number] [address] [place] [address] [place] Bilirubin [Mass/Vol] 0.3 mg/dL Normal 0.2-1.3 [facility] Comment on above: Order Comment: Speci men Type: BLOOD SPECIMEN [facility] Address: [address] [place] [address] Performed By: #### 2 2314-9, 54699-7, 5194-11 #### [facility] CLIA [id number] [address] [place] [address] [place] Calcium [Mass/Vol] 9.7 mg/dL Normal 8.5-10.2 [facility] Comment on above: Order Comment: Speci men Type: BLOOD SPECIMEN Ordering Facility: [facility] Address: [address] [place] [address] Performed By: #### 2 2314-9, 53701-3, 5194-11 #### [facility] CLIA [id number] [address] [place] [address] [place] Chloride [Moles/Vol] 108 mmol/L High 98-107 [facility] Comment on above: Order Comment: Speci men Type: BLOOD SPECIMEN Ordering Facility: [facility] Address: [address] [place] [address] Performed By: #### 2 2314-9, 18980-7, 5194-11 #### [facility] CLIA [id number] [address] [place], [place] [address] [place] CO2 [Moles/Vol] 25 mmol/L Normal 22-30 [facility] Comment on above: Order Comment: Speci men Type: BLOOD SPECIMEN Ordering Facility: [facility] Address: [address] [place] [address] Performed By: #### 2 2314-9, 55346-2, 5194-11 #### [facility] CLIA [id number] [facility] [place] [address] [place] Creatinine [Mass/Vol] 0.90 mg/dL Normal 0.58-0.96 [facility] Comment on above: Order Comment: Pati fajardo Type: BLOOD SPECIMEN Ordering Facility: [facility] Address: [address] [place] [address] Performed By: #### 2 2314-9, 82966-2, 5195-3 #### [facility] CLIA [id number] [address] [place] [address] [place] Creatinine and Glomerular filtration rate.predicted panel (S/P/Bld) 69 mL/min/1.73m??? Normal >=60 [facility] Comment on above: Order Comment: Pati fajardo Type: BLOOD SPECIMEN Ordering Facility: [facility] Address: [address] [place] [address] Result Comment: Jazlyn mated Glomerular Filtration Rate [...] actual GFR. Performed By: #### 2 2314-9, 80203-5, 5195-3 #### [facility] CLIA [id number] [address] [place] [address] [place] Glucose [Mass/Vol] 81 mg/dL Normal 74-99 [facility] Comment on above: Order Comment: Pati tana Type: BLOOD SPECIMEN Ordering Facility: [facility] Address: [address] [place] [address] Result Comment: The [place] Diabetes Association (ADA) provides guidance for cutoff [...] Standards of Medical Care in Diabetes 2016, [place] [employer] Association. Diabetes Care. 2016.39(Suppl 1). Performed By: #### 2 2314-9, 84898-3, 5194-3 #### [facility] CLIA [id number] [address] [place] [address] [place] Potassium [Moles/Vol] 3.8 mmol/L Normal 3.7-5.1 [facility] Comment on above: Order Comment: Specdayana fajardo Type: BLOOD SPECIMEN Ordering Facility: [facility] Address: [address] [place] [address] Performed By: #### 2 2314-9, 10829-1, 5194-11 #### [facility] CLIA [id number] [address] [place] [address] [place] Protein [Mass/Vol] 6.9 g/dL Normal 6.3-8.0 [facility] Comment on above: Order Comment: Pati fajardo Type: BLOOD SPECIMEN Ordering Facility: [facility] Address: [address] [place] [address] Performed By: #### 2 2314-9, 91484-6, 5194-11 #### [facility] CLIA [id number] [address] [place] [address] [place] Sodium [Moles/Vol] 144 mmol/L Normal 136-144 [facility] Comment on above: Order Comment: Changi men Type: BLOOD SPECIMEN Ordering Facility: [facility] Address: [address] [place] [address] Performed By: #### 2 2314-9, 00462-5, 3 #### [facility] CLIA [id number] [address] [place], [place] [address] [place] Urea nitrogen [Mass/Vol] 15 mg/dL Normal 7-21 [facility] Comment on above: Order Comment: Pati fajardo Type: BLOOD SPECIMEN Ordering Facility: [facility] Address: [address] [place] [address] Performed By: #### 2 2314-9, 23066-2, 5195-3 #### [facility] CLIA [id number] [address] [place] [address] [place] HbA1c (Bld)on 07-15-2024 Average glucose Estimated from glycated hemoglobin (Bld) [Mass/Vol] 120 mg/dL Normal [facility] Comment on above: Order Comment: Pati fajardo Type: BLOOD SPECIMEN Ordering Facility: [facility] Address: [address] [place] [address] Result Comment: eAG: (Estimated average glucose) is a calculated value from HgbA1c and is medical sales representative of the average blood glucose level in the last 2-3 month period. Performed By: #### 5 5454-3 #### [facility] CLIA [id number] [address] [place] [address] [place] HbA1c (Bld) [Mass fraction] 5.8 % High 4.3-5.6 [facility] Comment on above: Order Comment: Pati fajardo Type: BLOOD SPECIMEN Ordering Facility: [facility] Address: [address] [place] [address] Result Comment: [place] Diabetes Association guidelines indicate that patients with HgbA1c in the range 5.7-6.4% are at increased risk for development of diabetes, and intervention by lifestyle modification may be beneficial. HgbA1c greater or equal to 6.5% is considered diagnostic of diabetes. Performed By: #### 5 5454-3 #### [facility] CLIA [id number] [address] [place] [address] [place] Pulmonary Visit Reporton Pulmonary Visit Report Normal [facility] CV ARTERIAL U OR L SINGLE PH YSIOLOon 06-13-2024 CV ARTERIAL U OR L SINGLE [address] [address] Patient: BETSY RODRIGEZ Phone#: : 1955 Age: 68 Gender: F Pt. Type: Out Account: [id number] Location: 052 Ordering: XUAN GARCIA Exam Date: 06/13/2024/7:48 Family Phys: GIRISH LEMOS Charge Code: [id number] Physician: Morrow Order #: [id number] Dose#: PROCEDURE: ARTERIAL BILAT U OR L [...] 181 184 Ankle (DPA): 190 186 Ankle (CRYSTALLOGRAPHY TEACHER): 209 193 ANKLE BRACHIAL INDEX RIGHT LEFT 1.14 1.05 Tint Layer: RICARDO FINDINGS: Right Lower Extremity: The right lower extremity demonstrates normal triphasic Doppler signals at the posterior tibial, and dorsalis pedis arteries. Volume pulse recordings are normal throughout the extremity demonstrating a sharp systolic peak and prominent dicrotic notch. Left Lower Extremity: Continued Report - Page 2 of 2 Patient: BETSY RODRIGEZ Phone#: : 1955 Age: 68 Gender: F Pt. Type: Out Account: [id number] Location: 052 Ordering: XUAN GARCIA Exam Date: 06/13/2024/7:48 Family Phys: GIRISH LEMOS Charge Code: [id number] Physician: Morrow Order #: [id number] Dose#: The left lower extremity demonstrates normal [...] Bonner MD on 06/13/2024 at 13:12 Normal [facility] Fluor Guidance for Spine Inj on 06-02-2024 Fluor Guidance for Spine Inj Normal [facility] MR/POSTOP.ANEon 06-02-2024 MR/POSTOP.ANE Normal [facility] MR/[id number] 06-02-2024 MR/POSTOPAN2 Normal [facility] Operative Reporton Operative Report Normal [facility] LIPID PROFILEon 03-06-2024 Cholesterol [Mass/Vol] 231 mg/dL Normal 0 - 240 [facility] Comment on above: Performed By: #### 2 71470 #### [facility],[address] [place] [address] Cholesterol in HDL [Mass/Vol] 66 mg/dL High 40 - 60 [facility] Comment on above: Performed By: #### 2 26594 #### [facility],[address] [place] [address] Cholesterol in LDL [Mass/Vol] 151 mg/dL High 0 - 129 [facility] Comment on above: Performed By: #### 2 46349 #### [facility],[address] [place] [address] Cholesterol.total/Choles terol in HDL [Mass ratio] 3.5 {ratio} Normal 0.0 - 5.0 [facility] Comment on above: Performed By: #### 2 23451 #### [facility],[address] [place] [address] 11009 Lipid 1996 panel Normal [facility] Comment on above: Result Comment: LIPI D PROFILE Performed By: #### 2 80737 #### [facility],[address] [place] [address] Triglyceride [Mass/Vol] 71 mg/dL Normal 0 - 150 [facility] Comment on above: Performed By: #### 2 62417 #### [facility],[address] [place] [address] LIPID PROFILEon 06-21-2023 Cholesterol [Mass/Vol] 159 mg/dL Normal 0 - 240 [facility] Comment on above: Performed By: #### 2 84134 #### [facility],[address] [place] [address] Cholesterol in HDL [Mass/Vol] 62 mg/dL High 40 - 60 [facility] Comment on above: Performed By: #### 2 32008 #### [facility],[address] [place] [address] Cholesterol in LDL [Mass/Vol] 86 mg/dL Normal 0 - 129 [facility] Comment on above: Performed By: #### 2 63972 #### [facility],[address] [place] [address]37 Cholesterol.total/Choles terol in HDL [Mass ratio] 2.6 {ratio} Normal 0.0 - 5.0 [facility] Comment on above: Performed By: #### 2 77750 #### [facility],[address] [place] [address] Lipid 1996 panel Normal [facility] Comment on above: Result Comment: LIPI D PROFILE Performed By: #### 2 78929 #### [facility],[address] [place] [address] Triglyceride [Mass/Vol] 57 mg/dL Normal 0 - 150 [facility] Comment on above: Performed By: #### 2 93863 #### [facility],[address] [place] [address] CBC W Auto Differential pane l (Bld)on 02-20-2023 Basophils (Bld) [#/Vol] 0.05 10*3/uL <0.11 k/uL [facility] Basophils/100 WBC (Bld) 0.9 % C [facility] Differential cell count method Nom (Bld) Auto [facility] Eosinophils (Bld) [#/Vol] 0.15 10*3/uL <0.46 k/uL [facility] Eosinophils/100 WBC (Bld) 2.8 % [facility] Erythrocyte distribution width (RBC) [Ratio] 13.0 % 11.5 - 15.0 % [facility] Hematocrit (Bld) [Volume fraction] 46.0 % 36.0 - 46.0 % [facility] Hemoglobin (Bld) [Mass/Vol] 14.9 g/dL 11.5 - 15.5 g/dL [facility] Immature granulocytes (Bld) [#/Vol] <0.10 k/uL [facility] Immature granulocytes/100 WBC (Bld) 0.4 % [facility] Lymphocytes (Bld) [#/Vol] 1.41 10*3/uL 1.00 - 4.00 k/uL [facility] Lymphocytes/100 WBC (Bld) 26.2 % [facility] MCH (RBC) [Entitic mass] 28.8 pg 26. 0 - 34.0 pg [facility] MCHC (RBC) [Mass/Vol] 32.4 g/dL 30.5 - 36.0 g/dL [facility] MCV (RBC) [Entitic vol] 88.8 fL 80.0 - 100.0 fL [facility] Monocytes (Bld) [#/Vol] 0.66 10*3/uL <0.87 k/uL [facility] Monocytes/100 WBC (Bld) 12.2 % [facility] Neutrophils (Bld) [#/Vol] 3.10 10*3/uL 1.45 - 7.50 k/uL [facility] Neutrophils/100 WBC (Bld) 57.5 % [facility] Nucleated RBC (Bld) [#/Vol] <0.01 k/uL [facility] Nucleated RBC/100 WBC (Bld) [Ratio] 0.0 /100 WBC [facility] Platelet mean volume (Bld) [Entitic vol] 10.9 fL 9.0 - 12.7 fL [facility] Platelets (Bld) [#/Vol] 308 10*3/uL 150 - 400 k/uL [facility] RBC (Bld) [#/Vol] 5.18 10*6/uL 3.90 - 5.2 0 m/uL [facility] WBC (Bld) [#/Vol] 5.39 10*3/uL 3.70 - 11. 00 k/uL [facility] XR FOOT GENERAL 3V AP/LAT/OB L LEFTon 01-24-2023 [facility] DXA-AXIAL SKELETONon 023 LOWEST T-SCORE -0.7 [facility] Absolute lymphocyte counton 09-13-2022 Lymphocytes Auto (Unsp spec) [#/Vol] 1.57 10*3/uL 0.83-4.51 [facility] Work Phone: Basophil percentageon 2021 Basophils/100 WBC (Bld) 0.6 % 0-1 [facility] Work Phone: Bilirubin [Mass/Vol] 0.50 mg/dL 0.20-1.00 [facility] Work Phone: Comment on above: For patients on eltr ombopag therapy, use of Dimension [place] TBIL is not recommended. Chloride [Moles/Vol] 107 mmol/L 98-107 [facility] Work Phone: Eosinophils/100 WBC (Bld) 1.8 % 0-5 [facility] Work Phone: Glucose [Mass/Vol] 102 mg/dL 74-106 [facility] Work Phone: Comment on above: Fasting Glucose resu lt from 100 to 125 mg/dL suggests IMPAIRED HOMEOSTASIS per A.D.A. criteria. Neutrophils (Bld) [#/Vol] 4.4 10*3/uL 2.0-7.7 [facility] Work Phone: Neutrophils/100 WBC (Bld) 62.2 % 47-70 [facility] Work Phone: Potassium [Moles/Vol] 4.9 mmol/L 3.5-5.1 [facility] Work Phone: Comment on above: Moderate Hemolysis, Result may be falsely increased. Protein [Mass/Vol] 7.2 g/dL 6.4-8.2 [facility] Work Phone: Sodium [Moles/Vol] 141 mmol/L 136-145 [facility] Work Phone: [phone] WBC (Bld) [#/Vol] 7.1 10*3/uL 4.4-11.0 [facility] Work Phone: [phone] Blood erythrocytes count (nu mber/volume)on 09-13-2022 RBC (Bld) [#/Vol] 5.37 10*6/uL 4.2-5.4 [facility] Work Phone: [phone] Blood hemoglobin measurement (mass/volume)on 09-13-2022 Hemoglobin (Bld) [Mass/Vol] 15.8 g/dL 12.0-15.0 [facility] Work Phone: [phone] Blood lymphocytes/100 leukoc yteson 09-13-2022 Lymphocytes/100 WBC (Bld) 22.2 % 19-41 [facility] Work Phone: [phone] Blood monocytes/100 leukocyt eson 09-13-2022 Monocytes/100 WBC (Bld) 12.4 % 0-10 [facility] Work Phone: [phone] Blood platelet mean volumeon 09-13-2022 Platelet mean volume (Bld) [Entitic vol] 9.7 fL 6.2-12.0 [facility] Work Phone: [phone] Determination of erythrocyte mean corpuscular volume (MCV)on 09-13-2022 MCV (RBC) [Entitic vol] 88.5 fL 81-99 [facility] Work Phone: [phone] Hematocrit Auto (Bld) [Volum e fraction]on 09-13-2022 Hematocrit (Bld) [Volume fraction] 47.5 % 37-47 [facility] Work Phone: [phone] Laboratory - Chemistry and C hemistry - challengeon 09-13-2022 ALP [Catalytic activity/Vol] 100 U/L 45-117 [facility] Work Phone: [phone] ALT [Catalytic activity/Vol] 69 U/L 13-56 [facility] Work Phone: [phone] CO2 [Moles/Vol] 27.0 mmol/L 21.0-32.0 [facility] Work Phone: [phone] Globulin (S) [Mass/Vol] 3.9 g/dL 2.2-4.2 [facility] Work Phone: [phone] Urea nitrogen/Creatinine [Mass ratio] 17.6 mg/mg 10-20 [facility] Work Phone: [phone] Laboratory - Hematology and Cell countson 09-13-2022 Erythrocyte distribution width (RBC) [Entitic vol] 42.7 fL 35.1-43.9 [facility] Work Phone: [phone] Erythrocyte distribution width (RBC) [Ratio] 13.1 % 11.6-14.6 [facility] Work Phone: [phone] Immature granulocytes/100 WBC (Bld) 0.800 % 0.0-0.9 [facility] Work Phone: [phone] Comment on above: IG% - Immature Granu locytes (promyelocytes, myelocytes and metamyelocytes) > 1% indicates that a LEFT SHIFT is Present. MCH (RBC) [Entitic mass] 29.4 pg 27.0-32.0 [facility] Work Phone: [phone] Nucleated RBC/100 WBC (Bld) [Ratio] 0 % 0-5 [facility] Work Phone: [phone] MCHC Auto (RBC) [Mass/Vol]on 09-13-2022 MCHC (RBC) [Mass/Vol] 33.3 g/dL 32-36 [facility] Work Phone: [phone] Panel Informationon 09-13 Estimated Creatinine Clearance Calc 41.81 ml/min [facility] Work Phone: [phone] Estimated GFR (MDRD) Amer 65 mL/min >60 [facility] Work Phone: [phone] Comment on above: GFR Calc Estimated GFR (MDRD) Non-Af Amer 54 mL/min >60 [facility] Work Phone: [phone] Comment on above: Non- GFR Calc Platelets bldon 12-28-2022 Platelets (Bld) [#/Vol] 336 10*3/uL 150-450 [facility] Work Phone: Serum or plasma albumin jayro urement (mass/volume)on 09-13-2022 Albumin [Mass/Vol] 3.3 g/dL 3.2-5.0 [facility] Work Phone: [phone] Serum or plasma albumin/glob ulin mass ratioon 09-13-2022 Albumin/Globulin [Mass ratio] 0.8 {ratio} 0.9-2.4 [facility] Work Phone: [phone] Serum or plasma calcium jayro urement (mass/volume)on 09-13-2022 Calcium [Mass/Vol] 9.3 mg/dL 8.5-10.1 [facility] Work Phone: [phone] Serum or plasma creatinine m easurement (mass/volume)on 09-13-2022 Creatinine [Mass/Vol] 1.08 mg/dL 0.55-1.02 [facility] Work Phone: Comment on above: The validity of the calculated GFR & GFRAA in patients over 70 years has not been determined. Clinical correlation is essential. Serum or plasma urea nitroge n measurement (mass/volume)on 09-13-2022 Urea nitrogen [Mass/Vol] 19 mg/dL 7-18 [facility] Work Phone: Thin prep Papanicolaou smear with manual screeningon 09-13-2022 Thin prep Papanicolaou smear with manual screening 53 U/L 15-37 [facility] Work Phone: Comment on above: Moderate Hemolysis, Result may be falsely increased. Thin prep Papanicolaou smear with manual screening 7 5-15 [facility] Work Phone: UA DIP, URINE (POC)on 2021 BILIRUBIN UA (POCT) Negative Negative [facility] CLARITY UA (POCT) Slightly Cloudy Cl [facility] COLOR UA (POCT) Dark yellow [facility] GLUCOSE UA (POCT) Negative Negative mg/dL [facility] HEMOGLOBIN/BLOOD UA (POCT) Large Abnormal Negative [facility] KETONE UA (POCT) Negative Negative mg/dL [facility] LEUKOCYTES UA (POCT) Negative Negative [facility] NITRITE UA (POCT) Negative Negative [facility] PH UA (POCT) 5.5 4.5 - 8.0 [facility] Protein Ql (U) 30 mg/dL Abnormal Negative mg/dL [facility] SPECIFIC GRAVITY UA (POCT) 1.025 1.005 - 1.030 [facility] UROBILINOGEN UA (POCT) 0.2 E.U./dL Mellissa l E.U./dL [facility] 2019 CORONAVIRUSon 2 SARS-CoV-2 (COVID-19) RNA DEBBY+probe Ql (Resp) SARS-CoV-2 (Agent of COVID-19) Not Detected by RT-PCR or equivalent method. Not Detected [facility] XR Chest PA and Lateralon IMPRESSION: Stable chest. No acute cardiopulmonary process. [employer] Operations Engineer: CHRISTY Transcribe Date/Time: Nov 25 2021 1:45P Dictated by : ADRIANA KUMAR MD This examination was interpreted and the report reviewed and electronically signed by: ADRIANA KUMAR MD on Nov 25 2021 1:48PM [facility] DIVISION OF RADIOLOGY * * *Final [...] structures are intact DIVISION OF RADIOLOGY Provider, [facility] - 11/25/2021 * * *Final Report* * [...] IMPRESSION: Stable chest. No acute cardiopulmonary process. [employer] Operations Engineer: PSCB Transcribe Date/Time: Nov 25 2021 1:45P Dictated by : ADRIANA KUMAR MD This examination was interpreted and the report reviewed and electronically signed by: ADRIANA KUMAR MD on Nov 25 2021 1:48PM EST [facility] Radiology Study observation (narrative) Anant schneider [facility] XR Chest PA and LateralOrder ed By: [facility] Provider on 11-25-2021 [facility] Absolute lymphocyte counton 11-17-2021 Lymphocytes Auto (Unsp spec) [#/Vol] 0.65 10*3/uL 0.83-4.51 [facility] Work Phone: Basophil percentageon 2021 Basophils/100 WBC (Bld) 0.2 % 0-1 [facility] Work Phone: Chloride [Moles/Vol] 103 mmol/L 98-107 [facility] Work Phone: Eosinophils/100 WBC (Bld) 0.2 % 0-5 [facility] Work Phone: Glucose [Mass/Vol] 98 mg/dL 74-106 [facility] Work Phone: Neutrophils (Bld) [#/Vol] 5.0 10*3/uL 2.0-7.7 [facility] Work Phone: [phone] Neutrophils/100 WBC (Bld) 75.4 % 47-70 [facility] Work Phone: [phone] Potassium [Moles/Vol] 3.5 mmol/L 3.5-5.1 [facility] Work Phone: [phone] Sodium [Moles/Vol] 135 mmol/L 136-145 [facility] Work Phone: [phone] WBC (Bld) [#/Vol] 6.7 10*3/uL 4.4-11.0 [facility] Work Phone: [phone] Blood erythrocytes count (nu mber/volume)on 11-17-2021 RBC (Bld) [#/Vol] 4.70 10*6/uL 4.2-5.4 [facility] Work Phone: [phone] Blood hemoglobin measurement (mass/volume)on 11-17-2021 Hemoglobin (Bld) [Mass/Vol] 13.5 g/dL 12.0-15.0 [facility] Work Phone: [phone] Blood lymphocytes/100 leukoc yteson 11-17-2021 Lymphocytes/100 WBC (Bld) 9.8 % 19-41 [facility] Work Phone: [phone] Blood monocytes/100 leukocyt eson 11-17-2021 Monocytes/100 WBC (Bld) 13.5 % 0-10 [facility] Work Phone: [phone] Blood platelet mean volumeon 11-17-2021 Platelet mean volume (Bld) [Entitic vol] 10.9 fL 6.2-12.0 [facility] Work Phone: [phone] Determination of erythrocyte mean corpuscular volume (MCV)on 11-17-2021 MCV (RBC) [Entitic vol] 86.2 fL 81-99 [facility] Work Phone: Hematocrit Auto (Bld) [Volum e fraction]on 11-17-2021 Hematocrit (Bld) [Volume fraction] 40.5 % 37-47 [facility] Work Phone: [phone] Laboratory - Chemistry and C hemistry - challengeon 11-17-2021 CO2 [Moles/Vol] 27.0 mmol/L 21.0-32.0 [facility] Work Phone: [phone] Urea nitrogen/Creatinine [Mass ratio] 17.5 mg/mg 10-20 [facility] Work Phone: [phone] Laboratory - Hematology and Cell countson 11-17-2021 Erythrocyte distribution width (RBC) [Entitic vol] 42.7 fL 35.1-43.9 [facility] Work Phone: [phone] Erythrocyte distribution width (RBC) [Ratio] 13.4 % 11.6-14.6 [facility] Work Phone: [phone] Immature granulocytes/100 WBC (Bld) 0.900 % 0.0-0.9 [facility] Work Phone: [phone] Comment on above: IG% - Immature Granu locytes (promyelocytes, myelocytes and metamyelocytes) > 1% indicates that a LEFT SHIFT is Present. MCH (RBC) [Entitic mass] 28.7 pg 27.0-32.0 [facility] Work Phone: [phone] Nucleated RBC/100 WBC (Bld) [Ratio] 0 % 0-5 [facility] Work Phone: [phone] MCHC Auto (RBC) [Mass/Vol]on 11-17-2021 MCHC (RBC) [Mass/Vol] 33.3 g/dL 32-36 [facility] Work Phone: [phone] Panel Informationon 11-17 Estimated Creatinine Clearance Calc 43.84 ml/min [facility] Work Phone: [phone] Estimated GFR (MDRD) Amer 69 mL/min >60 [facility] Work Phone: [phone] Comment on above: GFR Calc Estimated GFR (MDRD) Non-Af Amer 57 mL/min >60 [facility] Work Phone: [phone] Comment on above: Non- GFR Calc Platelets bldon 11-17-2021 Platelets (Bld) [#/Vol] 228 10*3/uL 150-450 [facility] Work Phone: Serum or plasma calcium jayro urement (mass/volume)on 11-17-2021 Calcium [Mass/Vol] 9.1 mg/dL 8.5-10.1 [facility] Work Phone: Serum or plasma creatinine m easurement (mass/volume)on 11-17-2021 Creatinine [Mass/Vol] 1.03 mg/dL 0.55-1.02 [facility] Work Phone: Comment on above: The validity of the calculated GFR & GFRAA in patients over 70 years has not been determined. Clinical correlation is essential. Serum or plasma urea nitroge n measurement (mass/volume)on 11-17-2021 Urea nitrogen [Mass/Vol] 18 mg/dL 7-18 [facility] Work Phone: Thin prep Papanicolaou smear with manual screeningon 11-17-2021 Thin prep Papanicolaou smear with manual screening 5 5-15 [facility] Work Phone: XR Chest PA and [...] to pulmonary artery hypertension or hilar lymphadenopathy. [employer] Operations Engineer: CHRISTY Transcribe Date/Time: Nov 15 2021 3:09P Dictated by : RAJIV DONOVAN MD This examination was interpreted and the report reviewed and electronically signed by: RAJIV DONOVAN MD on Nov 15 2021 3:43PM [facility] DIVISION OF RADIOLOGY * * *Final [...] right chest wall. DIVISION OF RADIOLOGY Provider, [facility] [place] - 11/15/2021 * * *Final Report* * [...] to pulmonary artery hypertension or hilar lymphadenopathy. [employer] Engineer: CHRISTY Transcribe Date/Time: Nov 15 2021 3:09P Dictated by : RAJIV DONOVAN MD This examination was interpreted and the report reviewed and electronically signed by: RAJIV DONOVAN MD on Nov 15 2021 3:43PM EST [facility] Radiology Study observation (narrative) Anant schneider [facility] XR Chest PA and LateralOrder ed By: [facility] Provider on 11-15-2021 [facility] Absolute lymphocyte counton 11-12-2021 Lymphocytes Auto (Unsp spec) [#/Vol] 0.57 10*3/uL 0.83-4.51 [facility] Work Phone: Basophil percentageon 2021 Basophils/100 WBC (Bld) 0.6 % 0-1 [facility] Work Phone: Chloride [Moles/Vol] 108 mmol/L 98-107 [facility] Work Phone: Eosinophils/100 WBC (Bld) 0.5 % 0-5 [facility] Work Phone: Glucose [Mass/Vol] 135 mg/dL 74-106 [facility] Work Phone: Comment on above: Fasting Glucose resu lt greater than or equal to 126 mg/dL suggests DIABETES MELLITUS per A.D.A. criteria. Neutrophils (Bld) [#/Vol] 4.8 10*3/uL 2.0-7.7 [facility] Work Phone: Neutrophils/100 WBC (Bld) 74.4 % 47-70 [facility] Work Phone: Potassium [Moles/Vol] 3.7 mmol/L 3.5-5.1 [facility] Work Phone: [phone] Sodium [Moles/Vol] 140 mmol/L 136-145 [facility] Work Phone: WBC (Bld) [#/Vol] 6.5 10*3/uL 4.4-11.0 [facility] Work Phone: Blood erythrocytes count (nu mber/volume)on 11-12-2021 RBC (Bld) [#/Vol] 4.93 10*6/uL 4.2-5.4 [facility] Work Phone: Blood hemoglobin measurement (mass/volume)on 11-12-2021 Hemoglobin (Bld) [Mass/Vol] 14.6 g/dL 12.0-15.0 [facility] Work Phone: Blood lymphocytes/100 leukoc yteson 11-12-2021 Lymphocytes/100 WBC (Bld) 8.8 % 19-41 [facility] Work Phone: Blood manual differential co mment interpretation (narrative result)on 11-12-2021 Manual differential comment Scott (Bld) [Interp] See comment [facility] Work Phone: Comment on above: LYMPHOPENIA NOTED Blood monocytes/100 leukocyt eson 11-12-2021 Monocytes/100 WBC (Bld) 15.4 % 0-10 [facility] Work Phone: Blood platelet adequacy dete ction by light microscopyon 11-12-2021 Platelets LM Ql (Bld) ADEQUATE ADEQ [facility] Work Phone: Blood platelet mean volumeon 11-12-2021 Platelet mean volume (Bld) [Entitic vol] 10.2 fL 6.2-12.0 [facility] Work Phone: Determination of erythrocyte mean corpuscular volume (MCV)on 11-12-2021 MCV (RBC) [Entitic vol] 86.0 fL 81-99 [facility] Work Phone: Hematocrit Auto (Bld) [Volum e fraction]on 11-12-2021 Hematocrit (Bld) [Volume fraction] 42.4 % 37-47 [facility] Work Phone: Laboratory - Chemistry and C hemistry - challengeon 11-12-2021 CO2 [Moles/Vol] 24.0 mmol/L 21.0-32.0 [facility] Work Phone: Urea nitrogen/Creatinine [Mass ratio] 13.3 mg/mg 10-20 [facility] Work Phone: Laboratory - Hematology and Cell countson 11-12-2021 Erythrocyte distribution width (RBC) [Entitic vol] 42.1 fL 35.1-43.9 [facility] Work Phone: Erythrocyte distribution width (RBC) [Ratio] 13.4 % 11.6-14.6 [facility] Work Phone: Immature granulocytes/100 WBC (Bld) 0.300 % 0.0-0.9 [facility] Work Phone: Comment on above: IG% - Immature Granu locytes (promyelocytes, myelocytes and metamyelocytes) > 1% indicates that a LEFT SHIFT is Present. MCH (RBC) [Entitic mass] 29.6 pg 27.0-32.0 [facility] Work Phone: [phone] Nucleated RBC/100 WBC (Bld) [Ratio] 0 % 0-5 [facility] Work Phone: MCHC Auto (RBC) [Mass/Vol]on 11-12-2021 MCHC (RBC) [Mass/Vol] 34.4 g/dL 32-36 [facility] Work Phone: No Panel Informationon 11-12 Estimated Creatinine Clearance Calc 43.01 ml/min [facility] Work Phone: Estimated GFR (MDRD) Amer 67 mL/min >60 [facility] Work Phone: Comment on above: GFR Calc Estimated GFR (MDRD) Non-Af Amer 56 mL/min >60 [facility] Work Phone: Comment on above: Non- GFR Calc SARS-CoV-2 Antigen (Rapid) [facility] Work Phone: Platelets bldon 11-12-2021 Platelets (Bld) [#/Vol] 264 10*3/uL 150-450 [facility] Work Phone: RBC morphologyon 11-12-2021 RBC morphology finding Nom (Bld) NORM C+C NORMAL NORM C&C [facility] Work Phone: Serum or plasma calcium jayro urement (mass/volume)on 11-12-2021 Calcium [Mass/Vol] 9.5 mg/dL 8.5-10.1 [facility] Work Phone: Serum or plasma creatinine m easurement (mass/volume)on 11-12-2021 Creatinine [Mass/Vol] 1.05 mg/dL 0.55-1.02 [facility] Work Phone: Comment on above: The validity of the calculated GFR & GFRAA in patients over 70 years has not been determined. Clinical correlation is essential. Serum or plasma urea nitroge n measurement (mass/volume)on 11-12-2021 Urea nitrogen [Mass/Vol] 14 mg/dL 7-18 [facility] Work Phone: Thin prep Papanicolaou smear with manual screeningon 11-12-2021 Thin prep Papanicolaou smear with manual screening 8 5-15 [facility] Work Phone: Vital Signs Date Time Vital Sign Value Performing Clinician Facility 04-29-2025 10:11-0400 Body height 160.[address] Fabricio Lemos MD Work Phone: 1(806)323-586850 [place] [address] 04-29-2025 10:11-0400 Body mass index (BMI) [Ratio] 24.7 kg/m2 Dr. Fabricio Lemos MD Work Phone: [facility] 04-29-2025 10:11-0400 Body temperature 97.1 [degF] Dr. Fabricio Lemos MD Work Phone: [facility] 04-29-2025 10:11-0400 Body weight 63.[address] Fabricio Lemos MD Work Phone: [facility] 04-29-2025 10:11-0400 Diastolic blood pressure 71 mm[Hg] Dr. Fabricio Lemos MD Work Phone: [facility] 04-29-2025 10:11-0400 Heart rate 80 /min Dr. Fabricio Lemos MD Work Phone: [facility] 04-29-2025 10:11-0400 Respiratory rate 18 /min Dr. Fabricio Lemos MD Work Phone: [facility] 04-29-2025 10:11-0400 SaO2% (BldA) [Mass fraction] 91 % Dr. Fabricio Lemos MD Work Phone: 9(832)906-537648 [place] [address] 04-29-2025 10:11-0400 Systolic blood pressure 130 mm[Hg] Dr. Fabricio Lemos MD Work Phone: 1(158)965-486048 [place] [address] 04-28-2025 11:48-0400 Body height 160.[address] Fabricio Lemos MD Work Phone: 0(167)794-913248 [place] [address] 04-28-2025 11:48-0400 Body mass index (BMI) [Ratio] 24.7 kg/m2 Dr. Fabricio Lemos MD Work Phone: 9(586)368-944348 [place] [address] 04-28-2025 11:48-0400 Body temperature 96.6 [degF] Dr. Fabricio Lemos MD Work Phone: 8(830)304-829348 [place] [address] 04-28-2025 11:48-0400 Body weight 63.[address] Fabricio Lemos MD Work Phone: 1(848)531-762748 [place] [address] 04-28-2025 11:48-0400 Diastolic blood pressure 84 mm[Hg] Dr. Fabricio Lemos MD Work Phone: 4(324)961-342348 [place] [address] 04-28-2025 11:48-0400 Heart rate 90 /min Dr. Fabricio Lemos MD Work Phone: 7(341)089-589848 [place] [address] 04-28-2025 11:48-0400 Respiratory rate 16 /min Dr. Fabricio Lemos MD Work Phone: 5(310)299-268948 [place] [address] 04-28-2025 11:48-0400 SaO2% (BldA) [Mass fraction] 92 % Dr. Fabricio Lemos MD Work Phone: 0(548)291-397948 [place] [address] 04-28-2025 11:48-0400 Systolic blood pressure 164 mm[Hg] Dr. Fabricio Lemos MD Work Phone: 3(528)384-902948 [place] [address] 04-27-2025 11:09-0400 Body height 160.[address] Fabricio Lemos MD Work Phone: 4(738)985-471148 [place] [address] 04-27-2025 11:09-0400 Body mass index (BMI) [Ratio] 24.7 kg/m2 Dr. Fabricio Lemos MD Work Phone: 8(987)500-627148 [place] [address] 04-27-2025 11:09-0400 Body temperature 98.5 [degF] Dr. Fabricio Lemos MD Work Phone: 1(550)197-936848 [place] [address] 04-27-2025 11:09-0400 Body weight 63.[address] Fabricio Lemos MD Work Phone: 4(482)113-757348 [place] [address] 04-27-2025 11:09-0400 Diastolic blood pressure 69 mm[Hg] Dr. Fabricio Lemos MD Work Phone: 3(815)810-379848 [place] [address] 04-27-2025 11:09-0400 Heart rate 81 /min Dr. Fabricio Lemos MD Work Phone: 5(262)246-327248 [place] [address] 04-27-2025 11:09-0400 Respiratory rate 16 /min Dr. Fabricio Lemos MD Work Phone: 5(799)163-837848 [place] [address] 04-27-2025 11:09-0400 SaO2% (BldA) [Mass fraction] 91 % Dr. Fabricio Lemos MD Work Phone: 7(406)489-520448 [place] [address] 04-27-2025 11:09-0400 Systolic blood pressure 138 mm[Hg] Dr. Fabricio Lemos MD Work Phone: 2(622)879-222848 [place] [address] 04-20-2025 06:00-0400 Body temperature 97.8 [degF] Dr. Fabricio Lemos MD Work Phone: 0(677)123-172948 [place] [address] 04-20-2025 06:00-0400 Diastolic blood pressure 71 mm[Hg] Dr. Fabricio Lemos MD Work Phone: 5(436)185-950548 [place] [address] 04-20-2025 06:00-0400 Heart rate 85 /min Dr. Fabricio Lemos MD Work Phone: 1(431)130-035648 [place] [address] 04-20-2025 06:00-0400 Respiratory rate 16 /min Dr. Fabricio Lemos MD Work Phone: 3(353)814-628248 [place] [address] 04-20-2025 06:00-0400 SaO2% (BldA) [Mass fraction] 93 % Dr. Fabricio Lemos MD Work Phone: 4(121)705-902548 [place] [address] 04-20-2025 06:00-0400 Systolic blood pressure 112 mm[Hg] Dr. Fabricio Lemos MD Work Phone: 0(448)860-545748 [place] [address] 04-20-2025 01:57-0400 Body height 160.[address] Fabricio Lemos MD Work Phone: 1(169)239-618648 [place] [address] 04-20-2025 01:57-0400 Body mass index (BMI) [Ratio] 24.7 kg/m2 Dr. Fabricio Lemos MD Work Phone: 7(729)503-222148 [place] [address] 04-20-2025 01:57-0400 Body weight 63.[address] Fabricio Lemos MD Work Phone: 9(646)296-522948 [place] [address] 04-13-2025 10:59-0400 Body height 160.[address] Fabricio Lemos MD Work Phone: 5(101)313-056848 [place] [address] 04-13-2025 10:59-0400 Body mass index (BMI) [Ratio] 25.2 kg/m2 Dr. Fabricio Lemos MD Work Phone: 1(676)936-140848 [place] [address] 04-13-2025 10:59-0400 Body temperature 97.7 [degF] Dr. Fabricio Lemos MD Work Phone: 2(681)780-891848 [place] [address] 04-13-2025 10:59-0400 Body weight 64.[address] Fabricio Lemos MD Work Phone: 5(964)773-650648 [place] [address] 04-13-2025 10:59-0400 Diastolic blood pressure 75 mm[Hg] Dr. Fabricio Lemos MD Work Phone: 8(019)776-891248 [place] [address] 04-13-2025 10:59-0400 Heart rate 75 /min Dr. Fabricio Lemos MD Work Phone: 8(025)509-180048 [place] [address] 04-13-2025 10:59-0400 Respiratory rate 16 /min Dr. Fabricio Lemos MD Work Phone: 8(138)452-458248 [place] [address] 04-13-2025 10:59-0400 SaO2% (BldA) [Mass fraction] 94 % Dr. Fabricio Lemos MD Work Phone: 9(664)837-673248 [place] [address] 04-13-2025 10:59-0400 Systolic blood pressure 135 mm[Hg] Dr. Fabricio Lemos MD Work Phone: 1(859)185-820448 [place] [address] 04-06-2025 10:33-0400 Body height 160.[address] Fabricio Lemos MD Work Phone: 8(360)172-421048 [place] [address] 04-06-2025 10:33-0400 Body mass index (BMI) [Ratio] 25 kg/m2 Dr. Fabricio Lemos MD Work Phone: 4(330)105-831848 [place] [address] 04-06-2025 10:33-0400 Body temperature 98.3 [degF] Dr. Fabricio Lemos MD Work Phone: 5(700)698-153348 [place] [address] 04-06-2025 10:33-0400 Body weight 64.[address] Fabricio Lemos MD Work Phone: 2(264)808-961148 [place] [address] 04-06-2025 10:33-0400 Diastolic blood pressure 75 mm[Hg] Dr. Fabricio Lemos MD Work Phone: 3(394)740-156248 [place] [address] 04-06-2025 10:33-0400 Heart rate 76 /min Dr. Fabricio Lemos MD Work Phone: 2(670)148-631048 [place] [address] 04-06-2025 10:33-0400 Respiratory rate 18 /min Dr. Fabricio Lemos MD Work Phone: 0(226)329-634148 [place] [address] 04-06-2025 10:33-0400 SaO2% (BldA) [Mass fraction] 93 % Dr. Fabricio Lemos MD Work Phone: 7(439)471-785848 [place] [address] 04-06-2025 10:33-0400 Systolic blood pressure 135 mm[Hg] Dr. Fabricio Lemos MD Work Phone: 4(145)684-532548 [place] [address] 04-05-2025 22:20-0400 Body temperature 97.9 [degF] Dr. Fabricio Lemos MD Work Phone: 3(240)693-217048 [place] [address] 04-05-2025 22:20-0400 Diastolic blood pressure 78 mm[Hg] Dr. Fabricio Lemos MD Work Phone: 6(776)982-431250 [place] [address] 04-05-2025 22:20-0400 Heart rate 75 /min Dr. Fabricio Lemos MD Work Phone: 4(063)038-457350 [place] [address] 04-05-2025 22:20-0400 Respiratory rate 14 /min Dr. Fabricio Lemos MD Work Phone: 9(417)891-676948 [place] [address] 04-05-2025 22:20-0400 SaO2% (BldA) [Mass fraction] 99 % Dr. Fabricio Lemos MD Work Phone: 9(000)367-483148 [place] [address] 04-05-2025 22:20-0400 Systolic blood pressure 145 mm[Hg] Dr. Fabricio Lemos MD Work Phone: 8(923)592-113250 [place] [address] 04-05-2025 20:22-0400 Body mass index (BMI) [Ratio] 25 kg/m2 Dr. Fabricio Lemos MD Work Phone: 5(953)621-884350 [place] [address] 04-05-2025 20:22-0400 Body weight [address] Fabricio Lemos MD Work Phone: 9(412)545-798448 [place] [address] 04-05-2025 19:38-0400 Body height 160.[address] Fabricio Lemos MD Work Phone: 2(317)049-691948 [place] [address] 03-19-2025 14:43-0400 Body temperature 96.1 [degF] Dr. Fabricio Lemos MD Work Phone: 3(181)177-682748 [place] [address] 03-19-2025 14:43-0400 Diastolic blood pressure 74 mm[Hg] Dr. Fabricio Lemos MD Work Phone: 3(718)751-108648 [place] [address] 03-19-2025 14:43-0400 Heart rate 66 /min Dr. Fabricio Lemos MD Work Phone: 1(135)933-033248 [place] [address] 03-19-2025 14:43-0400 Respiratory rate 16 /min Dr. Fabricio Lemos MD Work Phone: 2(493)974-595148 [place] [address] 03-19-2025 14:43-0400 SaO2% (BldA) [Mass fraction] 94 % Dr. Fabricio Lemos MD Work Phone: 1(067)796-104048 [place] [address] 03-19-2025 14:43-0400 Systolic blood pressure 139 mm[Hg] Dr. Fabricio Lemos MD Work Phone: 8(083)504-976148 [place] [address] 03-16-2025 12:14-0400 Body weight 65.[address] Fabricio Lemos MD Work Phone: 2(302)276-521748 [place] [address] 03-16-2025 09:15-0400 Body height 160.[address] Fabricio Lemos MD Work Phone: 3(579)487-513548 [place] [address] 03-16-2025 09:15-0400 Body mass index (BMI) [Ratio] 25.4 kg/m2 Dr. Fabricio Lemos MD Work Phone: 0(880)364-671548 [place] [address] 03-16-2025 09:15-0400 Body temperature 97.3 [degF] Dr. Fabricio Lemos MD Work Phone: 1(362)099-257248 [place] [address] 03-16-2025 09:15-0400 Body weight 65.[address] Fabricio Lemos MD Work Phone: 8(542)472-776748 [place] [address] 03-16-2025 09:15-0400 Diastolic blood pressure 76 mm[Hg] Dr. Fabricio Lemos MD Work Phone: 1(194)015-170648 [place] [address] 03-16-2025 09:15-0400 Heart rate 65 /min Dr. Fabricio Lemos MD Work Phone: 5(376)237-696048 [place] [address] 03-16-2025 09:15-0400 Respiratory rate 16 /min Dr. Fabricio Lemos MD Work Phone: 9(297)883-770048 [place] [address] 03-16-2025 09:15-0400 SaO2% (BldA) [Mass fraction] 92 % Dr. Fabricio Lemos MD Work Phone: 5(291)142-455848 [place] [address] 03-16-2025 09:15-0400 Systolic blood pressure 128 mm[Hg] Dr. Fabricio Lemos MD Work Phone: 2(605)600-737848 [place] [address] 02-27-2025 14:42-0400 Body temperature 98.1 [degF] Dr. Fabricio Lemos MD Work Phone: 7(157)135-973648 [place] [address] 02-27-2025 14:42-0400 Diastolic blood pressure 70 mm[Hg] Dr. Fabricio Lemos MD Work Phone: 2(551)336-073048 [place] [address] 02-27-2025 14:42-0400 Heart rate 64 /min Dr. Fabricio Lemos MD Work Phone: 3(758)503-342248 [place] [address] 02-27-2025 14:42-0400 Respiratory rate 16 /min Dr. Fabricio Lemos MD Work Phone: 9(919)592-711648 [place] [address] 02-27-2025 14:42-0400 SaO2% (BldA) [Mass fraction] 94 % Dr. Fabricio Lemos MD Work Phone: 7(458)751-675748 [place] [address] 02-27-2025 14:42-0400 Systolic blood pressure 138 mm[Hg] Dr. Fabricio Lemos MD Work Phone: 5(595)694-713148 [place] [address] 02-24-2025 09:13-0400 Body height 160.[address] Fabricio Lemos MD Work Phone: 5(552)278-984148 [place] [address] 02-24-2025 09:13-0400 Body mass index (BMI) [Ratio] 25.5 kg/m2 Dr. Fabricio Lemos MD Work Phone: 6(946)196-709148 [place] [address] 02-24-2025 09:13-0400 Body temperature 98.6 [degF] Dr. Fabricio Lemos MD Work Phone: 5(068)601-632148 [place] [address] 02-24-2025 09:13-0400 Body weight 65.[address] Fabricio Lemos MD Work Phone: 0(875)926-282548 [place] [address] 02-24-2025 09:13-0400 Diastolic blood pressure 79 mm[Hg] Dr. Fabricio Lemos MD Work Phone: 9(063)797-191948 [place] [address] 02-24-2025 09:13-0400 Heart rate 63 /min Dr. Fabricio Lemos MD Work Phone: 8(030)424-795248 [place] [address] 02-24-2025 09:13-0400 Respiratory rate 16 /min Dr. Fabricio Lemos MD Work Phone: 7(670)374-822048 [place] [address] 02-24-2025 09:13-0400 SaO2% (BldA) [Mass fraction] 94 % Dr. Fabricio Lemos MD Work Phone: 6(757)660-415948 [place] [address] 02-24-2025 09:13-0400 Systolic blood pressure 136 mm[Hg] Dr. Fabricio Lemos MD Work Phone: 4(430)823-930648 [place] [address] 02-16-2025 09:00-0400 Body temperature 98.2 [degF] Dr. Fabricio Lemos MD Work Phone: 4(338)531-220248 [place] [address] 02-16-2025 09:00-0400 Diastolic blood pressure 58 mm[Hg] Dr. Fabricio Lemos MD Work Phone: 6(522)598-736048 [place] [address] 02-16-2025 09:00-0400 Heart rate 70 /min Dr. Fabricio Lemos MD Work Phone: 0(707)867-013848 [place] [address] 02-16-2025 09:00-0400 Respiratory rate 16 /min Dr. Fabricio Lemos MD Work Phone: 5(343)772-627948 [place] [address] 02-16-2025 09:00-0400 SaO2% (BldA) [Mass fraction] 94 % Dr. Fabricio Lemos MD Work Phone: 5(535)616-301248 [place] [address] 02-16-2025 09:00-0400 Systolic blood pressure 105 mm[Hg] Dr. Fabricio Lemos MD Work Phone: 5(129)964-938448 [place] [address] 02-16-2025 07:38-0400 Body height 160.[address] Fabricio Lemos MD Work Phone: 0(471)679-206148 [place] [address] 02-16-2025 07:38-0400 Body mass index (BMI) [Ratio] 25.7 kg/m2 Dr. Fabricio Lemos MD Work Phone: 7(948)226-345848 [place] [address] 02-16-2025 07:38-0400 Body weight [address] Fabricio Lemos MD Work Phone: 9(960)740-247048 [place] [address] 02-06-2025 12:18-0400 Body temperature 97.2 [degF] Dr. Fabricio Lemos MD Work Phone: 3(519)486-905848 [place] [address] 02-06-2025 12:18-0400 Diastolic blood pressure 82 mm[Hg] Dr. Fabricio Lemos MD Work Phone: 5(965)066-115948 [place] [address] 02-06-2025 12:18-0400 Heart rate 57 /min Dr. Fabricio Lemos MD Work Phone: 5(667)005-882348 [place] [address] 02-06-2025 12:18-0400 Respiratory rate 16 /min Dr. Fabricio Lemos MD Work Phone: 6(478)039-988248 [place] [address] 02-06-2025 12:18-0400 SaO2% (BldA) [Mass fraction] 97 % Dr. Fabricio Lemos MD Work Phone: 8(082)894-711948 [place] [address] 02-06-2025 12:18-0400 Systolic blood pressure 156 mm[Hg] Dr. Fabricio Lemos MD Work Phone: 2(345)062-470948 [place] [address] 02-05-2025 12:48-0400 Body mass index (BMI) [Ratio] 26.1 kg/m2 Dr. Fabricio Lemos MD Work Phone: 5(163)231-687148 [place] [address] 02-05-2025 12:48-0400 Body weight 66.[address] Fabricio Lemos MD Work Phone: 2(261)920-826948 [place] [address] 02-03-2025 09:31-0400 Body height 160.[address] Fabricio Lemos MD Work Phone: 8(201)222-259348 [place] [address] 02-03-2025 09:31-0400 Body weight 64.[address] Fabricio Lemos MD Work Phone: 1(598)168-483548 [place] [address] 02-03-2025 09:01-0400 Body mass index (BMI) [Ratio] 25 kg/m2 Dr. Fabricio Lemos MD Work Phone: 5(173)226-052648 [place] [address] 02-03-2025 09:01-0400 Body temperature 97.4 [degF] Dr. Fabricio Lemos MD Work Phone: 6(259)558-058448 [place] [address] 02-03-2025 09:01-0400 Body weight 64.[address] Fabricio Lemos MD Work Phone: 3(198)101-781548 [place] [address] 02-03-2025 09:01-0400 Diastolic blood pressure 81 mm[Hg] Dr. Fabricio Lemos MD Work Phone: 8(772)054-977548 [place] [address] 02-03-2025 09:01-0400 Heart rate 76 /min Dr. Fabricio Lemos MD Work Phone: 5(919)022-622048 [place] [address] 02-03-2025 09:01-0400 Respiratory rate 16 /min Dr. Fabricio Lemos MD Work Phone: 4(043)853-916848 [place] [address] 02-03-2025 09:01-0400 SaO2% (BldA) [Mass fraction] 92 % Dr. Fabricio Lemos MD Work Phone: 9(568)918-234748 [place] [address] 02-03-2025 09:01-0400 Systolic blood pressure 134 mm[Hg] Dr. Fabricio Lemos MD Work Phone: 3(775)733-276548 [place] [address] 01-26-2025 13:02-0400 Body mass index (BMI) [Ratio] 24.71 kg/m2 Girish Lemos MD Work Phone: 0(805)436-123405 [place] [address] 01-26-2025 13:02-0400 Body temperature 99.3 [degF] Girish Lemos MD Work Phone: [facility] 01-26-2025 13:02-0400 Body weight 64.05 kg Girish Lemos MD Work Phone: [facility] 01-26-2025 13:02-0400 Diastolic blood pressure 66 mm[Hg] Girish Lemos MD Work Phone: [facility] 01-26-2025 13:02-0400 Heart rate 80 /min Girish Lemos MD Work Phone: [facility] 01-26-2025 13:02-0400 Respiratory rate 16 /min Girish Lemos MD Work Phone: [facility] 01-26-2025 13:02-0400 SaO2% (BldA) [Mass fraction] 95 % Girish Lemos MD Work Phone: [facility] 01-26-2025 13:02-0400 Systolic blood pressure 116 mm[Hg] Girish Lemos MD Work Phone: [facility] 01-13-2025 09:27-0400 Body mass index (BMI) [Ratio] 23.97 kg/m2 Girish Lemos MD Work Phone: [facility] 01-13-2025 09:27-0400 Body weight 62.14 kg Girish Lemos MD Work Phone: [facility] 01-13-2025 09:27-0400 Diastolic blood pressure 60 mm[Hg] Girish Lemos MD Work Phone: [facility] 01-13-2025 09:27-0400 Heart rate 72 /min Girish Lemos MD Work Phone: [facility] 01-13-2025 09:27-0400 Respiratory rate 16 /min Girish Lemos MD Work Phone: [facility] 01-13-2025 09:27-0400 SaO2% (BldA) [Mass fraction] 98 % Girish Lemos MD Work Phone: [facility] 01-13-2025 09:27-0400 Systolic blood pressure 104 mm[Hg] Girish Lemos MD Work Phone: 7(341)708-188652 [place] [address] 01-10-2025 14:35-0400 Body temperature 98.4 [degF] Dr. Fabricio Lemos MD Work Phone: 9(899)587-029750 [place] [address] 01-10-2025 14:35-0400 Diastolic blood pressure 65 mm[Hg] Dr. Fabricio Lemos MD Work Phone: 0(148)627-889948 [place] [address] 01-10-2025 14:35-0400 Heart rate 72 /min Dr. Fabricio Lemos MD Work Phone: 6(944)629-711548 [facility] [place] [address] 01-10-2025 14:35-0400 Respiratory rate 14 /min Dr. Fabricio Lemos MD Work Phone: 0(362)230-820548 [place] [address] 01-10-2025 14:35-0400 SaO2% (BldA) [Mass fraction] 94 % Dr. Fabricio Lemos MD Work Phone: 6(199)756-581050 [place] [address] 01-10-2025 14:35-0400 Systolic blood pressure 118 mm[Hg] Dr. Fabricio Lemos MD Work Phone: 2(191)800-626750 [place] [address] 01-10-2025 13:49-0400 Body height 160.[address] Fabricio Lemos MD Work Phone: 9(553)160-406850 [place] [address] 01-10-2025 13:49-0400 Body weight 65.[address] Fabricio Lemos MD Work Phone: 9(831)188-711250 [place] [address] 01-10-2025 08:31-0400 Inhaled oxygen flow rate 2 L/min Dr. Fabricio Lemos MD Work Phone: 4(591)687-799148 [place] [address] 01-10-2025 03:07-0400 Body mass index (BMI) [Ratio] 25.7 kg/m2 Dr. Fabricio Lemos MD Work Phone: 1(913)099-351250 [place] [address] 01-08-2025 14:51-0400 Diastolic blood pressure 74 mm[Hg] Dr. Fabricio Lemos MD Work Phone: 2(115)431-348948 [place] [address] 01-08-2025 14:51-0400 Heart rate 57 /min Dr. Fabricio Lemos MD Work Phone: 1(201)243-820048 [place] [address] 01-08-2025 14:51-0400 Respiratory rate 16 /min Dr. Fabricio Lemos MD Work Phone: 5(522)349-880248 [place] [address] 01-08-2025 14:51-0400 Systolic blood pressure 156 mm[Hg] Dr. Fabricio Lemos MD Work Phone: 3(084)005-005348 [place] [address] 01-08-2025 12:54-0400 Body temperature 97.1 [degF] Dr. Fabricio Lemos MD Work Phone: 3(850)048-461048 [place] [address] 01-08-2025 12:54-0400 SaO2% (BldA) [Mass fraction] 97 % Dr. Fabricio Lemos MD Work Phone: 0(411)219-832448 [place] [address] 01-06-2025 08:55-0400 Body mass index (BMI) [Ratio] 24.4 kg/m2 Dr. Fabricio Lemos MD Work Phone: 0(988)108-293948 [place] [address] 01-06-2025 08:55-0400 Body temperature 97 [degF] Dr. Fabricio Lemos MD Work Phone: 5(265)295-872948 [place] [address] 01-06-2025 08:55-0400 Body weight 62.[address] Fabricio Lemos MD Work Phone: 8(307)366-263148 [place] [address] 01-06-2025 08:55-0400 Diastolic blood pressure 80 mm[Hg] Dr. Fabricio Lemos MD Work Phone: 3(877)188-654048 [place] [address] 01-06-2025 08:55-0400 Heart rate 71 /min Dr. Fabricio Lemos MD Work Phone: 0(269)452-678348 [place] [address] 01-06-2025 08:55-0400 Respiratory rate 16 /min Dr. Fabricio Lemos MD Work Phone: 7(215)608-251148 [place] [address] 01-06-2025 08:55-0400 SaO2% (BldA) [Mass fraction] 95 % Dr. Fabricio Lemos MD Work Phone: 9(480)427-781448 [place] [address] 01-06-2025 08:55-0400 Systolic blood pressure 127 mm[Hg] Dr. Fabricio Lemos MD Work Phone: 3(104)514-096748 [place] [address] 12-29-2024 13:46-0400 Body mass index (BMI) [Ratio] 24.4 kg/m2 Dr. Fabricio Lemos MD Work Phone: 6(181)959-413648 [place] [address] 12-29-2024 13:46-0400 Body temperature 98.2 [degF] Dr. Fabricio Lemos MD Work Phone: 5(381)929-252748 [place] [address] 12-29-2024 13:46-0400 Body weight 62.[address] Fabricio Lemos MD Work Phone: 7(568)479-636248 [place] [address] 12-29-2024 13:46-0400 Diastolic blood pressure 74 mm[Hg] Dr. Fabricio Lemos MD Work Phone: 8(389)559-515948 [place] [address] 12-29-2024 13:46-0400 Heart rate 69 /min Dr. Fabricio Lemos MD Work Phone: 7(745)256-235148 [place] [address] 12-29-2024 13:46-0400 Respiratory rate 16 /min Dr. Fabricio Lemos MD Work Phone: 2(920)643-691948 [place] [address] 12-29-2024 13:46-0400 SaO2% (BldA) [Mass fraction] 93 % Dr. Fabricio Lemos MD Work Phone: 1(858)244-813848 [place] [address] 12-29-2024 13:46-0400 Systolic blood pressure 121 mm[Hg] Dr. Fabricio Lemos MD Work Phone: 4(888)219-678148 [place] [address] 12-16-2024 08:51-0400 Body mass index (BMI) [Ratio] 25.7 kg/m2 Dr. Fabricio Lemos MD Work Phone: 6(452)203-053048 [place] [address] 12-16-2024 08:51-0400 Body temperature 98.4 [degF] Dr. Fabricio Lemos MD Work Phone: 8(116)372-149648 [place] [address] 12-16-2024 08:51-0400 Body weight 65.[address] Fabricio Lemos MD Work Phone: 6(364)506-463648 [place] [address] 12-16-2024 08:51-0400 Diastolic blood pressure 79 mm[Hg] Dr. Fabricio Lemos MD Work Phone: 2(088)363-365748 [place] [address] 12-16-2024 08:51-0400 Heart rate 71 /min Dr. Fabricio Lemos MD Work Phone: 4(281)075-766048 [place] [address] 12-16-2024 08:51-0400 Respiratory rate 14 /min Dr. Fabricio Lemos MD Work Phone: 1(839)914-070748 [place] [address] 12-16-2024 08:51-0400 SaO2% (BldA) [Mass fraction] 93 % Dr. Fabricio Lemos MD Work Phone: 0(691)066-113348 [place] [address] 12-16-2024 08:51-0400 Systolic blood pressure 144 mm[Hg] Dr. Fabricio Lemos MD Work Phone: 5(046)692-791848 [place] [address] 12-12-2024 12:35-0400 Body temperature 98.2 [degF] Dr. Fabricio Lemos MD Work Phone: 0(897)640-632348 [place] [address] 12-12-2024 12:35-0400 Diastolic blood pressure 67 mm[Hg] Dr. Fabricio Lemos MD Work Phone: 6(207)036-540248 [place] [address] 12-12-2024 12:35-0400 Heart rate 80 /min Dr. Fabricio Lemos MD Work Phone: 4(579)090-879548 [place] [address] 12-12-2024 12:35-0400 Inhaled oxygen flow rate 2 L/min Dr. Fabricio Lemos MD Work Phone: 4(241)548-040648 [place] [address] 12-12-2024 12:35-0400 Respiratory rate 18 /min Dr. Fabricio Lemos MD Work Phone: 8(924)528-563248 [place] [address] 12-12-2024 12:35-0400 SaO2% (BldA) [Mass fraction] 95 % Dr. Fabricio Lemos MD Work Phone: 8(443)654-243048 [place] [address] 12-12-2024 12:35-0400 Systolic blood pressure 121 mm[Hg] Dr. Fabricio Lemos MD Work Phone: 5(495)485-103648 [place] [address] 12-12-2024 10:51-0400 Body height 160.[address] Fabricio Lemos MD Work Phone: 0(991)971-679148 [place] [address] 12-12-2024 10:51-0400 Body mass index (BMI) [Ratio] 26.2 kg/m2 Dr. Fabricio Lemos MD Work Phone: 1(756)573-854548 [place] [address] 12-12-2024 10:51-0400 Body weight [address] Fabricio Lemos MD Work Phone: 8(108)052-822048 [place] [address] 12-10-2024 12:46-0400 Body height 160.[address] Fabricio Lemos MD Work Phone: 7(831)994-216748 [place] [address] 12-10-2024 12:46-0400 Body mass index (BMI) [Ratio] 26.7 kg/m2 Dr. Fabricio Lemos MD Work Phone: 1(711)618-484148 [place] [address] 12-10-2024 12:46-0400 Body weight 68.[address] Fabricio Lemos MD Work Phone: 6(032)342-421948 [place] [address] 12-10-2024 12:46-0400 Diastolic blood pressure 71 mm[Hg] Dr. Fabricio Lemos MD Work Phone: 7(132)544-870248 [place] [address] 12-10-2024 12:46-0400 Heart rate 81 /min Dr. Fabricio Lemos MD Work Phone: 7(348)845-705848 [place] [address] 12-10-2024 12:46-0400 Respiratory rate 17 /min Dr. Fabricio Lemos MD Work Phone: 8(809)042-396948 [place] [address] 12-10-2024 12:46-0400 SaO2% (BldA) [Mass fraction] 93 % Dr. Fabricio Lemos MD Work Phone: 2(661)981-535948 [place] [address] 12-10-2024 12:46-0400 Systolic blood pressure 135 mm[Hg] Dr. Fabricio Lemos MD Work Phone: 1(181)057-871148 [place] [address] 12-09-2024 10:45-0400 Body mass index (BMI) [Ratio] 26.7 kg/m2 Dr. Fabricio Lemos MD Work Phone: 8(948)768-451648 [place] [address] 12-09-2024 10:45-0400 Body temperature 97.8 [degF] Dr. Fabricio Lemos MD Work Phone: 0(036)703-467048 [place] [address] 12-09-2024 10:45-0400 Body weight 68.[address] Fabricio Lemos MD Work Phone: 3(095)348-770648 [place] [address] 12-09-2024 10:45-0400 Diastolic blood pressure 73 mm[Hg] Dr. Fabricio Lemos MD Work Phone: 5(883)065-350548 [place] [address] 12-09-2024 10:45-0400 Heart rate 77 /min Dr. Fabricio Lemos MD Work Phone: 1(964)031-384148 [place] [address] 12-09-2024 10:45-0400 Respiratory rate 16 /min Dr. Fabricio Lemos MD Work Phone: 3(274)384-017048 [place] [address] 12-09-2024 10:45-0400 SaO2% (BldA) [Mass fraction] 93 % Dr. Fabricio Lemos MD Work Phone: 3(011)938-305148 [place] [address] 12-09-2024 10:45-0400 Systolic blood pressure 125 mm[Hg] Dr. Fabricio Lemos MD Work Phone: 7(986)506-537048 [place] [address] 12-02-2024 13:20-0400 Body mass index (BMI) [Ratio] 28 kg/m2 Dr. Fabricio Lemos MD Work Phone: 9(945)353-740348 [place] [address] 12-02-2024 13:20-0400 Body temperature 97.8 [degF] Dr. Fabricio Lemos MD Work Phone: 4(029)349-804248 [place] [address] 12-02-2024 13:20-0400 Body weight 71.[address] Fabricio Lemos MD Work Phone: 1(917)655-873148 [place] [address] 12-02-2024 13:20-0400 Diastolic blood pressure 77 mm[Hg] Dr. Fabricio Lemos MD Work Phone: 3(876)576-329848 [place] [address] 12-02-2024 13:20-0400 Heart rate 78 /min Dr. Fabricio Lemos MD Work Phone: 4(858)808-579248 [place] [address] 12-02-2024 13:20-0400 Respiratory rate 16 /min Dr. Fabricio Lemos MD Work Phone: 5(650)274-754548 [place] [address] 12-02-2024 13:20-0400 SaO2% (BldA) [Mass fraction] 94 % Dr. Fabricio Lemos MD Work Phone: 8(752)439-970648 [place] [address] 12-02-2024 13:20-0400 Systolic blood pressure 128 mm[Hg] Dr. Fabricio Lemos MD Work Phone: 3(118)958-940348 [place] [address] 11-28-2024 08:45-0400 Body temperature 96.2 [degF] Dr. Fabricio Lemos MD Work Phone: 4(998)486-909648 [place] [address] 11-28-2024 08:45-0400 Diastolic blood pressure 69 mm[Hg] Dr. Fabricio Lemos MD Work Phone: 2(098)387-098048 [place] [address] 11-28-2024 08:45-0400 Heart rate 82 /min Dr. Fabricio Lemos MD Work Phone: 9(585)911-009448 [place] [address] 11-28-2024 08:45-0400 Respiratory rate 16 /min Dr. Fabricio Lemos MD Work Phone: 8(939)826-137448 [place] [address] 11-28-2024 08:45-0400 SaO2% (BldA) [Mass fraction] 94 % Dr. Fabricio Lemos MD Work Phone: 3(084)840-308148 [place] [address] 11-28-2024 08:45-0400 Systolic blood pressure 120 mm[Hg] Dr. Fabricio Lemos MD Work Phone: 8(216)569-993948 [place] [address] 11-26-2024 08:22-0400 Inhaled oxygen flow rate 2 L/min Dr. Fabricio Lemos MD Work Phone: 4(172)027-883348 [place] [address] 11-26-2024 08:21-0400 Body mass index (BMI) [Ratio] 28.5 kg/m2 Dr. Fabricio Lemos MD Work Phone: 1(059)211-984548 [place] [address] 11-24-2024 16:29-0400 Body weight 70.[address] Fabricio Lemos MD Work Phone: 7(481)923-042248 [place] [address] 11-24-2024 15:32-0400 Body mass index (BMI) [Ratio] 27.5 kg/m2 Dr. Fabricio Lemos MD Work Phone: 2(097)341-403948 [place] [address] 11-24-2024 15:32-0400 Body temperature 97.5 [degF] Dr. Fabricio Lemos MD Work Phone: 5(953)066-532748 [place] [address] 11-24-2024 15:32-0400 Diastolic blood pressure 74 mm[Hg] Dr. Fabricio Lemos MD Work Phone: 0(715)091-384948 [place] [address] 11-24-2024 15:32-0400 Heart rate 86 /min Dr. Fabricio Lemos MD Work Phone: 4(675)020-311748 [place] [address] 11-24-2024 15:32-0400 Respiratory rate 16 /min Dr. Fabricio Lemos MD Work Phone: 6(322)915-433548 [place] [address] 11-24-2024 15:32-0400 SaO2% (BldA) [Mass fraction] 90 % Dr. Fabricio Lemos MD Work Phone: 4(959)524-501548 [place] [address] 11-24-2024 15:32-0400 Systolic blood pressure 126 mm[Hg] Dr. Fabricio Lemos MD Work Phone: 7(404)744-019948 [place] [address] 11-23-2024 17:39-0400 Diastolic blood pressure 73 mm[Hg] Dr. Fabricio Lemos MD Work Phone: 4(506)132-712748 [place] [address] 11-23-2024 17:39-0400 Heart rate 70 /min Dr. Fabricio Lemos MD Work Phone: 9(485)832-266748 [place] [address] 11-23-2024 17:39-0400 Respiratory rate 18 /min Dr. Fabricio Lemos MD Work Phone: 4(604)249-905348 [place] [address] 11-23-2024 17:39-0400 SaO2% (BldA) [Mass fraction] 98 % Dr. Fabricio Lemos MD Work Phone: 2(472)934-250548 [place] [address] 11-23-2024 17:39-0400 Systolic blood pressure 123 mm[Hg] Dr. Fabricio Lemos MD Work Phone: 9(615)456-215748 [place] [address] 11-23-2024 16:25-0400 Body mass index (BMI) [Ratio] 27.6 kg/m2 Dr. Fabricio Lemos MD Work Phone: 7(808)854-937448 [place] [address] 11-23-2024 16:25-0400 Body weight 70.[address] Fabricio Lemos MD Work Phone: 3(932)903-290948 [place] [address] 11-23-2024 15:39-0400 Body height 160.[address] Fabricio Lemos MD Work Phone: 3(533)578-466448 [place] [address] 11-23-2024 15:39-0400 Body temperature 97.5 [degF] Dr. Fabricio Lemos MD Work Phone: 1(153)725-091148 [place] [address] 11-15-2024 12:29-0500 Body temperature 98.8 [degF] Dr. Fabricio Lemos MD Work Phone: 7(564)774-513848 [place] [address] 11-15-2024 12:29-0500 Diastolic blood pressure 78 mm[Hg] Dr. Fabricio Lemos MD Work Phone: 8(095)946-921848 [place] [address] 11-15-2024 12:29-0500 Heart rate 70 /min Dr. Fabricio Lemos MD Work Phone: 1(765)644-396948 [place] [address] 11-15-2024 12:29-0500 Respiratory rate 18 /min Dr. Fabricio Lemos MD Work Phone: 1(981)007-241348 [place] [address] 11-15-2024 12:29-0500 SaO2% (BldA) [Mass fraction] 98 % Dr. Fabricio Lemos MD Work Phone: 0(273)077-284850 [place] [address] 11-15-2024 12:29-0500 Systolic blood pressure 144 mm[Hg] Dr. Fabricio Lemos MD Work Phone: 7(783)324-378648 [place] [address] 11-15-2024 05:07-0500 Body mass index (BMI) [Ratio] 30.2 kg/m2 Dr. Fabricio Lemos MD Work Phone: 2(249)760-619748 [place] [address] 11-15-2024 05:07-0500 Body weight 77.[address] Fabricio Lemos MD Work Phone: 9(957)366-372048 [place] [address] 11-14-2024 14:28-0500 Inhaled oxygen flow rate 2 L/min Dr. Fabricio Lemos MD Work Phone: 7(939)310-457848 [place] [address] 11-12-2024 08:28-0500 Body mass index (BMI) [Ratio] 27.02 kg/m2 Girish Lemos MD Work Phone: 0(178)820-921552 [place] [address] 11-12-2024 08:28-0500 Body temperature 98.29 [degF] Girish Lemos MD Work Phone: [facility] 11-12-2024 08:28-0500 Body weight 70.03 kg Girish Lemos MD Work Phone: 7(231)491-336252 [place] [address] 11-12-2024 08:28-0500 Diastolic blood pressure 64 mm[Hg] Girish Lemos MD Work Phone: 3(516)504-445152 [place] [address] 11-12-2024 08:28-0500 Heart rate 83 /min Girish Lemos MD Work Phone: 8(008)857-693152 [place] [address] 11-12-2024 08:28-0500 Respiratory rate 16 /min Girish Lemos MD Work Phone: [facility] 11-12-2024 08:28-0500 SaO2% (BldA) [Mass fraction] 93 % Girish Lemos MD Work Phone: [facility] 11-12-2024 08:28-0500 Systolic blood pressure 104 mm[Hg] Girish Lemos MD Work Phone: [facility] 11-05-2024 08:48-0500 Body height 161 cm Silas Robbins MD Work Phone: [facility] 11-05-2024 08:48-0500 Body mass index (BMI) [Ratio] 27.74 kg/m2 Silas Robbins MD Work Phone: [facility] 11-05-2024 08:48-0500 Body temperature 98.1 [degF] Silas Robbins MD Work Phone: [facility] 11-05-2024 08:48-0500 Body weight 71.89 kg Silas Robbins MD Work Phone: [facility] 11-05-2024 08:48-0500 Diastolic blood pressure 78 mm[Hg] Silas Robbins MD Work Phone: [facility] 11-05-2024 08:48-0500 Heart rate 69 /min Silas Robbins MD Work Phone: [facility] 11-05-2024 08:48-0500 SaO2% (BldA) [Mass fraction] 95 % Silas Robbins MD Work Phone: [facility] 11-05-2024 08:48-0500 Systolic blood pressure 138 mm[Hg] Silas Robbins MD Work Phone: [facility] 11-03-2024 07:46-0500 Body mass index (BMI) [Ratio] 27.4 kg/m2 Dr. Fabricio Lemos MD Work Phone: [facility] 11-03-2024 07:46-0500 Body temperature 97.3 [degF] Dr. Fabricio Lemos MD Work Phone: [facility] 11-03-2024 07:46-0500 Body weight 72.[address] Fabricio Lemos MD Work Phone: [facility] 11-03-2024 07:46-0500 Diastolic blood pressure 72 mm[Hg] Dr. Fabricio Lemos MD Work Phone: [facility] 11-03-2024 07:46-0500 Heart rate 69 /min Dr. Fabricio Lemos MD Work Phone: 0(079)668-296348 [place] [address] 11-03-2024 07:46-0500 Respiratory rate 18 /min Dr. Fabricio Lemos MD Work Phone: 0(247)666-456050 [place] [address] 11-03-2024 07:46-0500 SaO2% (BldA) [Mass fraction] 94 % Dr. Fabricio Lemos MD Work Phone: 9(624)675-544450 [place] [address] 11-03-2024 07:46-0500 Systolic blood pressure 118 mm[Hg] Dr. Fabricio Lemos MD Work Phone: 7(231)924-892550 [place] [address] 10-17-2024 12:52-0500 Body height 160 cm Girish Lemos MD Work Phone: [facility] 10-17-2024 12:52-0500 Body mass index (BMI) [Ratio] 28.7 kg/m2 Girish Lemos MD Work Phone: [facility] 10-17-2024 12:52-0500 Body temperature 97.81 [degF] Girish Lemos MD Work Phone: [facility] 10-17-2024 12:52-0500 Body weight 73.48 kg Girish Lemos MD Work Phone: [facility] 10-17-2024 12:52-0500 Diastolic blood pressure 70 mm[Hg] Girish Lemos MD Work Phone: [facility] 10-17-2024 12:52-0500 Heart rate 67 /min Girish Lemos MD Work Phone: [facility] 10-17-2024 12:52-0500 Respiratory rate 12 /min Girish Lemos MD Work Phone: [facility] 10-17-2024 12:52-0500 SaO2% (BldA) [Mass fraction] 94 % Girish Lemos MD Work Phone: [facility] 10-17-2024 12:52-0500 Systolic blood pressure 118 mm[Hg] Girish Lemos MD Work Phone: [facility] 10-16-2024 08:22-0500 Body mass index (BMI) [Ratio] 28.87 kg/m2 Oleg Fields 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 Work Phone: [facility] 10-16-2024 08:22-0500 Body weight 73.94 kg Oleg Fields 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 Work Phone: [facility] 10-16-2024 08:22-0500 Diastolic blood pressure 80 mm[Hg] Oleg Fields 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 Work Phone: [facility] 10-16-2024 08:22-0500 Heart rate 74 /min Oleg Fields 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 Work Phone: [facility] 10-16-2024 08:22-0500 Respiratory rate 14 /min Oleg Fields 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 Work Phone: [facility] 10-16-2024 08:22-0500 Systolic blood pressure 144 mm[Hg] Oleg Fields 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 Work Phone: [facility] 09-19-2024 09:38-0500 Body mass index (BMI) [Ratio] 29.26 kg/m2 Girish Lemos MD Work Phone: [facility] 09-19-2024 09:38-0500 Body weight 74.93 kg Girish Lemos MD Work Phone: [facility] 09-19-2024 09:38-0500 Diastolic blood pressure 68 mm[Hg] Girish Lemos MD Work Phone: [facility] 09-19-2024 09:38-0500 Heart rate 73 /min Girish Lemos MD Work Phone: [facility] 09-19-2024 09:38-0500 Respiratory rate 18 /min Girish Lemos MD Work Phone: [facility] 09-19-2024 09:38-0500 SaO2% (BldA) [Mass fraction] 98 % Girish Lemos MD Work Phone: [facility] 09-19-2024 09:38-0500 Systolic blood pressure 124 mm[Hg] Girish Lemos MD Work Phone: [facility] 08-19-2024 10:40-0500 Diastolic blood pressure 82 mm[Hg] Jeanette Podlogar 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 Work Phone: [facility] Comment on above: [facility] BP 08-19-2024 10:40-0500 Systolic blood pressure 164 mm[Hg] Jeanette Podlogar 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 Work Phone: [facility] Comment on above: [facility] BP 08-19-2024 10:16-0500 Body mass index (BMI) [Ratio] 30.15 kg/m2 Jeanette Podlogar 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 Work Phone: [facility] 08-19-2024 10:16-0500 Body weight 77.2 kg Jeanette Podlogar 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 Work Phone: [facility] 08-19-2024 10:16-0500 Heart rate 58 /min Jeanette Podlogar 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 Work Phone: [facility] 08-19-2024 10:16-0500 Respiratory rate 18 /min Jeanette Podlogar 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 Work Phone: [facility] 08-19-2024 10:16-0500 SaO2% (BldA) [Mass fraction] 98 % Jeanette Podlogar 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 Work Phone: [facility] 07-15-2024 10:22-0400 Diastolic blood pressure 80 mm[Hg] Jeanette Podlogar 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 Work Phone: [facility] Comment on above: [facility] BP 07-15-2024 10:22-0400 Heart rate 50 /min Jeanette Podlogar 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 Work Phone: [facility] 07-15-2024 10:22-0400 Systolic blood pressure 157 mm[Hg] Jeanette Podlogar 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 Work Phone: [facility] Comment on above: [facility] BP 07-15-2024 08:53-0400 Body mass index (BMI) [Ratio] 31.01 kg/m2 Jeanette Podlogar 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 Work Phone: [facility] 07-15-2024 08:53-0400 Body weight 79.4 kg Jeanette Podlogar 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 Work Phone: [facility] 07-15-2024 08:53-0400 Respiratory rate 18 /min Jeanette Podlogar 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 Work Phone: [facility] 07-15-2024 08:53-0400 SaO2% (BldA) [Mass fraction] 97 % Jeanette Podlogar 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 Work Phone: [facility] 01-08-2024 09:14-0400 Body mass index (BMI) [Ratio] 31.74 kg/m2 Jeanette Podlogar 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 Work Phone: [facility] 01-08-2024 09:14-0400 Body weight 81.28 kg Jeanette Podlogar 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 Work Phone: [facility] 01-08-2024 09:14-0400 Diastolic blood pressure 84 mm[Hg] Jeanette Podlogar 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 Work Phone: [facility] 01-08-2024 09:14-0400 Heart rate 55 /min Jeanette Podlogar 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 Work Phone: [facility] 01-08-2024 09:14-0400 Respiratory rate 18 /min Jeanette Podlogar 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 Work Phone: [facility] 01-08-2024 09:14-0400 SaO2% (BldA) [Mass fraction] 96 % Jeanette Podlogar 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 Work Phone: [facility] 01-08-2024 09:14-0400 Systolic blood pressure 136 mm[Hg] Jeanette Podlogar 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 Work Phone: [facility] 06-22-2023 08:55-0400 Body weight 80.47 kg Jeanette Podlogar 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 Work Phone: [facility] 06-22-2023 08:55-0400 Diastolic blood pressure 80 mm[Hg] Jeanette Podlogar 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 Work Phone: [facility] 06-22-2023 08:55-0400 Heart rate 60 /min Jeanette Podlogar 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 Work Phone: [facility] 06-22-2023 08:55-0400 Respiratory rate 16 /min Jeanette Podlogar 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 Work Phone: [facility] 06-22-2023 08:55-0400 SaO2% (BldA) [Mass fraction] 94 % Jeanette Podlogar 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 Work Phone: [facility] 06-22-2023 08:55-0400 Systolic blood pressure 132 mm[Hg] Jeanette Podlogar 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 Work Phone: [facility] 05-03-2023 08:18-0400 Body height 160.[address] Fabricio Lemos Work Phone: [facility] 05-03-2023 08:18-0400 Body weight 80.[address] Fabricio Lemos Work Phone: [facility] 05-03-2023 08:18-0400 Heart rate 67 /min Dr. Fabricio Lemos Work Phone: [facility] 05-03-2023 08:18-0400 SaO2% (BldA) [Mass fraction] 98 % Dr. Fabricio Lemos Work Phone: [facility] 03-21-2023 09:09-0400 Body weight 83.64 kg Jeanette Podlogar 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 Work Phone: [facility] 03-21-2023 09:09-0400 Diastolic blood pressure 82 mm[Hg] Jeanette Podlogar 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 Work Phone: [facility] 03-21-2023 09:09-0400 Heart rate 58 /min Jeanette Podlogar 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 Work Phone: [facility] 03-21-2023 09:09-0400 Respiratory rate 16 /min Jeanette Podlogar 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 Work Phone: [facility] 03-21-2023 09:09-0400 SaO2% (BldA) [Mass fraction] 96 % Jeanette Podlogar 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 Work Phone: [facility] 03-21-2023 09:09-0400 Systolic blood pressure 140 mm[Hg] Jeanette Podlogar 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 Work Phone: [facility] 03-13-2023 05:49-0400 Body mass index (BMI) [Ratio] 32.2 kg/m2 Dr. Fabricio Lemos Work Phone: [facility] 03-13-2023 05:49-0400 Body temperature 98.1 [degF] Dr. Fabricio Lemos Work Phone: [facility] 03-13-2023 05:49-0400 Body weight 82.[address] Fabricio Lemos Work Phone: [facility] 03-13-2023 05:49-0400 Diastolic blood pressure 85 mm[Hg] Dr. Fabricio Lemos Work Phone: [facility] 03-13-2023 05:49-0400 Heart rate 66 /min Dr. Fabricio Lemos Work Phone: [facility] 03-13-2023 05:49-0400 Respiratory rate 18 /min Dr. Fabricio Lemos Work Phone: [facility] 03-13-2023 05:49-0400 SaO2% (BldA) [Mass fraction] 93 % Dr. Fabricio Lemos Work Phone: [facility] 03-13-2023 05:49-0400 Systolic blood pressure 160 mm[Hg] Dr. Fabricio Lemos Work Phone: [facility] 02-20-2023 08:40-0400 Body weight 83.64 kg Jeanette Podlogar 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 Work Phone: [facility] 02-20-2023 08:40-0400 Diastolic blood pressure 78 mm[Hg] Jeanette Podlogar 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 Work Phone: [facility] 02-20-2023 08:40-0400 Heart rate 48 /min Jeanette Podlogar 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 Work Phone: [facility] 02-20-2023 08:40-0400 Respiratory rate 18 /min Jeanette Podlogar 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 Work Phone: [facility] 02-20-2023 08:40-0400 SaO2% (BldA) [Mass fraction] 95 % Jeanette Podlogar 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 Work Phone: [facility] 02-20-2023 08:40-0400 Systolic blood pressure 148 mm[Hg] Jeanette Podlogar 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 Work Phone: [facility] 09-25-2022 07:58-0500 Body height 160.[address] Fabricio Lemos Work Phone: [facility] 09-25-2022 07:58-0500 Body mass index (BMI) [Ratio] 32.8 kg/m2 Dr. Fabricio Lemos Work Phone: [facility] 09-25-2022 07:58-0500 Body temperature 97.3 [degF] Dr. Fabricio Lemos Work Phone: [facility] 09-25-2022 07:58-0500 Body weight 83.[address] Fabricio Lemos Work Phone: [facility] 09-25-2022 07:58-0500 Diastolic blood pressure 79 mm[Hg] Dr. Fabricio Lemos Work Phone: [facility] 09-25-2022 07:58-0500 Heart rate 49 /min Dr. Fabricio Lemos Work Phone: [facility] 09-25-2022 07:58-0500 Respiratory rate 18 /min Dr. Fabricio Lemos Work Phone: 2(559)[phone] [place] [address] 09-25-2022 07:58-0500 SaO2% (BldA) [Mass fraction] 94 % Dr. Fabricio Lemos Work Phone: 9(475)[phone] [address] 09-25-2022 07:58-0500 Systolic blood pressure 181 mm[Hg] Dr. Fabricio Lemos Work Phone: 9(847)[phone] [place] [address] 09-19-2022 09:11-0500 Diastolic blood pressure 70 mm[Hg] Girish Lemos MD Work Phone: [facility] 09-19-2022 09:11-0500 Heart rate 56 /min Girish Lemos MD Work Phone: [facility] 09-19-2022 09:11-0500 Respiratory rate 16 /min Girish Lemos MD Work Phone: [facility] 09-19-2022 09:11-0500 SaO2% (BldA) [Mass fraction] 96 % Girish Lemos MD Work Phone: [facility] 09-19-2022 09:11-0500 Systolic blood pressure 122 mm[Hg] Girish Lemos MD Work Phone: [facility] 09-13-2022 10:00-0500 Diastolic blood pressure 75 mm[Hg] Dr. Fabricio Lemos Work Phone: [facility] Work Phone: 09-13-2022 10:00-0500 Heart rate 58 /min Dr. Fabricio Lemos Work Phone: [facility] Work Phone: 09-13-2022 10:00-0500 Respiratory rate 12 /min Dr. Fabricio Lemos Work Phone: [facility] Work Phone: 09-13-2022 10:00-0500 SaO2% (BldA) [Mass fraction] 94 % Dr. Fabricio Lemos Work Phone: [facility] Work Phone: 09-13-2022 10:00-0500 Systolic blood pressure 118 mm[Hg] Dr. Fabricio Lemos Work Phone: [facility] Work Phone: 09-13-2022 08:00-0500 Body temperature 97.9 [degF] Dr. Fabricio Lemos Work Phone: [facility] Work Phone: 09-13-2022 06:47-0500 Body height 160.[address] Fabricio Lemos Work Phone: [facility] Work Phone: 09-13-2022 06:47-0500 Body mass index (BMI) [Ratio] 32.2 kg/m2 Dr. Fabricio Lemos Work Phone: [facility] Work Phone: 09-13-2022 06:47-0500 Body weight 82.[address] Fabricio Lemos Work Phone: [facility] Work Phone: 09-04-2022 12:45-0500 Body mass index (BMI) [Ratio] 32.5 kg/m2 Dr. Fabricio Lemos Work Phone: [facility] Work Phone: 09-04-2022 12:45-0500 Body temperature 100.4 [degF] Dr. Fabricio Lemos Work Phone: [facility] Work Phone: 09-04-2022 12:45-0500 Body weight 86.[address] Fabricio Lemos Work Phone: [facility] Work Phone: 09-04-2022 12:45-0500 Diastolic blood pressure 81 mm[Hg] Dr. Fabricio Lemos Work Phone: [facility] Work Phone: 09-04-2022 12:45-0500 Heart rate 75 /min Dr. Fabricio Lemos Work Phone: [facility] Work Phone: 09-04-2022 12:45-0500 Respiratory rate 18 /min Dr. Fabricio Lemos Work Phone: [facility] Work Phone: 09-04-2022 12:45-0500 SaO2% (BldA) [Mass fraction] 94 % Dr. Fabricio Lemos Work Phone: [facility] Work Phone: 09-04-2022 12:45-0500 Systolic blood pressure 130 mm[Hg] Dr. Fabricio Lemos Work Phone: [facility] Work Phone: 08-22-2022 09:44-0500 Body height 160 cm Jeanette Podlogar 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 Work Phone: [facility] 08-22-2022 09:44-0500 Body weight 82.56 kg Jeanette Podlogar 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 Work Phone: [facility] 08-22-2022 09:44-0500 Diastolic blood pressure 78 mm[Hg] Jeanette Podlogar 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 Work Phone: [facility] 08-22-2022 09:44-0500 Heart rate 58 /min Jeanette Podlogar 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 Work Phone: [facility] 08-22-2022 09:44-0500 SaO2% (BldA) [Mass fraction] 95 % Jeanette Schaefferlogshai 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 Work Phone: [facility] 08-22-2022 09:44-0500 Systolic blood pressure 138 mm[Hg] Jeanette Podlogar 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 Work Phone: [facility] 07-24-2022 17:34-0500 Body temperature 97.7 [degF] Jamaica Kira 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 Work Phone: [facility] 07-24-2022 17:34-0500 Body weight 85.28 kg Jamaica Kira 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 Work Phone: [facility] 07-24-2022 17:34-0500 Diastolic blood pressure 68 mm[Hg] Jamaica Kira 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 Work Phone: [facility] 07-24-2022 17:34-0500 Heart rate 70 /min [place] Kira 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 Work Phone: [facility] 07-24-2022 17:34-0500 Respiratory rate 16 /min [place] Kira 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 Work Phone: [facility] 07-24-2022 17:34-0500 SaO2% (BldA) [Mass fraction] 97 % [place] Kira 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 Work Phone: [facility] 07-24-2022 17:34-0500 Systolic blood pressure 110 mm[Hg] [place] Kira 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 Work Phone: [facility] 03-23-2022 10:50-0400 Body temperature 98.71 [degF] Girish Lemos MD Work Phone: [facility] 03-23-2022 10:50-0400 Body weight 83.83 kg Girish Lemos MD Work Phone: [facility] 03-23-2022 10:50-0400 Diastolic blood pressure 84 mm[Hg] Girish Lemos MD Work Phone: [facility] 07-07-2022 10:50-0400 Heart rate 69 /min Girish Lemos MD Work Phone: [facility] 03-23-2022 10:50-0400 Respiratory rate 18 /min Girish Lemos MD Work Phone: [facility] 03-23-2022 10:50-0400 SaO2% (BldA) [Mass fraction] 95 % Girish Lemos MD Work Phone: [facility] 03-23-2022 10:50-0400 Systolic blood pressure 122 mm[Hg] Girish Lemos MD Work Phone: [facility] 01-05-2022 13:12-0400 Body height 162.[address] Fabricio Lemos Work Phone: [facility] Work Phone: 01-05-2022 13:12-0400 Body mass index (BMI) [Ratio] 33 kg/m2 Dr. Fabricio Lemos Work Phone: [facility] Work Phone: 01-05-2022 13:12-0400 Body temperature 97.2 [degF] Dr. Fabricio Lemos Work Phone: [facility] Work Phone: 01-05-2022 13:12-0400 Body weight 87.[address] Fabricio Lemos Work Phone: [facility] Work Phone: 01-05-2022 13:12-0400 Diastolic blood pressure 82 mm[Hg] Dr. Fabricio Lemos Work Phone: [facility] Work Phone: 01-05-2022 13:12-0400 Heart rate 64 /min Dr. Fabricio Lemos Work Phone: [facility] Work Phone: 01-05-2022 13:12-0400 Respiratory rate 16 /min Dr. Fabricio Lemos Work Phone: [facility] Work Phone: 01-05-2022 13:12-0400 SaO2% (BldA) [Mass fraction] 96 % Dr. Fabricio Lemos Work Phone: [facility] Work Phone: 01-05-2022 13:12-0400 Systolic blood pressure 131 mm[Hg] Dr. Fabricio Lemos Work Phone: [facility] Work Phone: 11-17-2021 12:35-0500 Diastolic blood pressure 78 mm[Hg] Dr. Fabricio Lemos Work Phone: [facility] Work Phone: 11-17-2021 12:35-0500 Heart rate 73 /min Dr. Fabricio Lemos Work Phone: [facility] Work Phone: 11-17-2021 12:35-0500 Respiratory rate 18 /min Dr. Fabricio Lemos Work Phone: [facility] Work Phone: 11-17-2021 12:35-0500 SaO2% (BldA) [Mass fraction] 94 % Dr. Fabricio Lemos Work Phone: [facility] Work Phone: 11-17-2021 12:35-0500 Systolic blood pressure 138 mm[Hg] Dr. Fabricio Lemos Work Phone: [facility] Work Phone: 11-17-2021 09:18-0500 Body mass index (BMI) [Ratio] 31.8 kg/m2 Dr. Fabricio Lemos Work Phone: [facility] Work Phone: 11-17-2021 09:18-0500 Body temperature 96.9 [degF] Dr. Fabricio Lemos Work Phone: [facility] Work Phone: 11-17-2021 09:18-0500 Body weight 81.[address] Fabricio Lemos Work Phone: [facility] Work Phone: 11-12-2021 19:00-0500 Diastolic blood pressure 77 mm[Hg] Dr. Fabricio Lemos Work Phone: [facility] Work Phone: 11-12-2021 19:00-0500 Heart rate 76 /min Dr. Fabricio Lemos Work Phone: [facility] Work Phone: 11-12-2021 19:00-0500 Respiratory rate 18 /min Dr. Fabricio Lemos Work Phone: [facility] Work Phone: 11-12-2021 19:00-0500 SaO2% (BldA) [Mass fraction] 93 % Dr. Fabricio Lemos Work Phone: [facility] Work Phone: 11-12-2021 19:00-0500 Systolic blood pressure 144 mm[Hg] Dr. Fabricio Lemos Work Phone: [facility] Work Phone: 11-12-2021 16:39-0500 Body mass index (BMI) [Ratio] 32.8 kg/m2 Dr. Fabricio Lemos Work Phone: [facility] Work Phone: 11-12-2021 16:39-0500 Body temperature 99.9 [degF] Dr. Fabricio Lemos Work Phone: [facility] Work Phone: 11-12-2021 16:39-0500 Body weight 83.[address] Fabricio Lemos Work Phone: [facility] Work Phone: Encounters Encounter Date Encounter Type Care Provider Facility Start: 04-29-[address] Rubi Fernandez MD -[facility] Start: 04-29-2025 End: 04-29-[address] Sherice Fernandez MD -[facility] Work Phone: Start: 04-29-2025 End: 04-29-[address] Fabricio Lemos MD Work Phone: [facility] Start: 04-28-[address] Rubi Fernandez MD -Radiation Oncology Start: 04-28-2025 End: 04-28-[address] Reg Layne [facility] Work Phone: Start: 04-28-2025 End: 04-28-[address] Fabricio Lemos MD Work Phone: [facility] Start: 04-27-[address] Rubi Fernandez MD -[facility] Start: 04-27-2025 End: 04-27-[address] Sherice Fernandez MD -[facility] Work Phone: Start: 04-27-2025 End: 04-27-[address] Fabricio Lemos MD Work Phone: [facility] Start: 04-22-2025 ambulatory Fabricio Blackwell [facility] Start: 04-22-2025 Non-patient / Non-visit Dr. Reg schwab DO [facility] Start: 04-21-2025 ambulatory Fabricio Blackwell [facility] Start: 04-21-2025 Non-patient / [facility] Start: 04-20-2025 End: 04-20-2025 Emergency department patient visit Dr. Fabricio Lemos MD Work Phone: -Emergency Department Work Phone: Start: 04-15-2025 Non-patient / [facility] Start: 04-15-2025 End: 04-15-2025 Refill Girish Lemos MD Work Phone: [facility] Comment on above: Refill Request Start: 04-15-[address] Rubi Fernandez MD -Radiation Oncology Start: 04-13-2025 End: 04-13-[address] Reg Layne DO -[facility] Work Phone: Start: 04-13-2025 End: 04-13-[address] Fabricio Lemos MD Work Phone: -[facility] Start: 04-13-2025 ambulatory Reg Xi Facility: [facility] Start: 04-06-2025 End: 04-06-[address] Fabricio Lemos MD Work Phone: -[facility] Start: 04-06-2025 End: 04-06-2025 Patient encounter procedure Sharda Audie INSULATION BLOWER-C -[facility] Work Phone: Start: 04-06-2025 End: 04-06-2025 Patient encounter procedure Sharda Audie INSULATION BLOWER-C -[facility] Work Phone: Start: 04-06-2025 End: 04-06-[address] Fabricio Lemos MD Work Phone: -[facility] Start: 04-06-[address] Rubi Fernandez MD -[facility] Start: 04-06-2025 End: 04-06-2025 ambulatory Sharda Audie INSULATION BLOWER Facility:[facility] Start: 04-05-2025 End: 04-05-2025 Emergency department patient visit Dr. Fabricio Lemos MD Work Phone: -Emergency Department Work Phone: Start: 03-31-2025 End: 03-31-2025 Refill Girish Lemos MD Work Phone: [facility] Comment on above: Refill Request Start: 03-19-[address] Rubi Fernandez MD [facility] Start: 03-16-[address] Rubi Fernandez MD [facility] Start: 03-16-2025 End: 03-16-[address] Sherice Fernandez MD -[facility] Work Phone: Start: 03-16-2025 End: 03-16-[address] Fabricio Lemos MD Work Phone: [facility] Start: 02-24-2025 End: 02-24-[address] Fabricio Lemos MD Work Phone: [facility] Work Phone: Start: 02-24-2025 End: 02-24-[address] Sherice Fernandez MD -[facility] Work Phone: Start: 02-24-2025 End: 02-24-2025 Dr. Sherice Fernandez MD -[facility] Work Phone: Start: 02-17-2025 End: 02-17-[address] Fabricio Lemos MD Work Phone: [facility] Work Phone: Start: 02-17-2025 End: 02-17-[address] Sherice Fernandez MD -Cat Scan [facility] Work Phone: Start: 02-17-2025 End: 02-17-2025 Dr. Sherice Fernandez MD -Cat Scan [facility] Work Phone: Start: 02-16-2025 End: 02-16-2025 Admission to same day surgery center Dr. Az Hoffmann MD -[facility] Start: 02-16-2025 End: 02-16-2025 Dr. Az Hoffmann MD -[facility] Start: 02-16-2025 End: 02-17-[address] Fabricio Lemos MD Work Phone: [facility] Work Phone: Start: 02-11-2025 End: 02-11-2025 Refill Girish Lemos MD Work Phone: [facility] Comment on above: Refill Request Start: 02-06-2025 Dr. Sherice hernandez MD -[facility] Start: 02-03-[address] Rubi Fernandez MD -[facility] Start: 02-03-2025 End: 02-03-[address] Sherice Fernandez MD -[facility] Work Phone: Start: 02-03-2025 End: 02-03-2025 Dr. Sherice Fernandez MD -[facility] Work Phone: Start: 02-03-2025 End: 02-03-[address] Fabricio Lemos MD Work Phone: [facility] Work Phone: Start: 01-27-2025 End: 01-27-2025 Follow-up encounter [facility] Start: 01-26-2025 End: 01-26-2025 Follow-up encounter Girish Lemos MD Work Phone: [facility] Comment on above: Results (Chest Xray) Start: 01-26-2025 End: 01-26-2025 Subsequent hospital visit by physician Xr [facility] [place] Work Phone: Radiology Comment on above: Viral URI with cough [J06.9] Start: 01-26-2025 End: 01-26-2025 Patient encounter procedure Girish Lemos MD Work Phone: [facility] Comment on above: Viral URI with cough (Primary Dx); Immunocompromised state (HCC) Start: 01-26-2025 End: 01-26-2025 ambulatory SILAS ROBBINS Facility:[facility] Start: 01-13-2025 End: 01-13-2025 Patient encounter procedure Girish Lemos MD Work Phone: 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 Jassi Borden MD -[facility] Work Phone: Start: 01-10-2025 Dr. Jassi Borden MD [facility] Work Phone: Start: 01-10-2025 ambulatory Santi Hurd Facility:[facility] Start: 01-10-2025 Non-patient / Non-visit Dr. Santi valdez MD -[facility] Start: 01-10-2025 Dr. Santi Hurd MD [facility] Start: 01-09-2025 End: 01-09-2025 Non-patient / Non-visit Dr. Man Polo MD -[facility] Work Phone: Start: 01-09-2025 End: 01-10-2025 ambulatory [facility] Facility:[facility] Start: 01-09-2025 End: 01-10-2025 Evaluation and management of inpatient Dr. Jassi Borden MD -Progressive Care Unit Work Phone: Start: 01-09-2025 End: 01-10-[address] Fabricio Lemos MD Work Phone: [facility] Work Phone: Start: 01-09-2025 End: 01-10-2025 Dr. Jassi Borden MD -[facility] Care Unit Work Phone: Start: 01-09-[address] Rubi Fernandez MD -[facility] Start: 01-06-2025 End: 01-06-[address] Sherice Fernandez MD -[facility] Work Phone: Start: 01-06-2025 End: 01-06-2025 Dr. Sherice Fernandez MD -[facility] Work Phone: Start: 01-06-2025 End: 01-06-2025 ambulatory [facility] Start: 12-29-2024 End: 12-29-2024 Patient encounter procedure Sharda Audie INS[employer]ATION BLOWER-C -[facility] Work Phone: Start: 12-29-2024 End: 12-29-2024 Sharda Audie [facility] [employer]-C -[facility] Work Phone: Start: 12-29-2024 End: 12-29-2024 ambulatory Fabricio Aminta Facility:[facility] Start: 12-22-2024 End: 12-22-2024 Patient encounter procedure Rachael Mattson PA-C -[facility] Work Phone: Start: 12-22-2024 End: 12-22-2024 Rachael Mattson PA-C -[facility] Work Phone: Start: 12-22-2024 End: 12-22-2024 ambulatory Fabricio Aminta Facility:[facility] Start: 12-16-2024 End: 12-16-2024 Patient encounter procedure Sharda Audie [facility]OWER-C -[facility] Work Phone: Start: 12-16-2024 End: 12-16-2024 Sharda Bronson INS[employer] BLOWER-C -[facility] Work Phone: Start: 12-16-2024 End: 12-16-2024 ambulatory [facility] Facility:[facility] Start: 12-15-2024 End: 12-15-2024 Refill Girish Lemos MD Work Phone: [facility] Comment on above: Encounter not needed Refill Request Start: 12-12-2024 ambulatory Fabriciojoyce Lemos Faci [facility]ity:[facility] Start: 12-12-2024 Non-patient / Non-visit Dr. Stefan Sorto MD -[facility] Start: 12-12-2024 Dr. Yeimi ramos MD -[facility] Start: 12-12-2024 End: 12-12-2024 Admission to same day surgery center Dr. Yeimi Sorto MD -[facility] Start: 12-12-2024 End: 12-12-2024 Dr. Yeimi Sorto MD -[facility] Start: 12-12-2024 End: 12-12-[address] Fabricio Lemos MD Work Phone: [facility] Work Phone: Start: 12-10-2024 End: 12-10-[address] Yeimi Sorto MD -[facility] Work Phone: Start: 12-10-2024 End: 12-10-2024 Dr. Yeimi Sorto MD -[facility] Work Phone: Start: 12-10-2024 End: 12-10-2024 ambulatory [facility] Facility:[facility] Start: 12-09-[address] Rubi Fernandez MD -[facility] Start: 12-09-2024 End: 12-09-2024 Patient encounter procedure Sharda Audie [facility] Work Phone: Start: 12-09-2024 End: 12-09-2024 Sharda Bronson [facility] Work Phone: Start: 12-09-2024 End: 12-09-2024 ambulatory [facility] Facility:[facility] Start: 12-03-2024 End: 12-03-[address] Fabricio Lemos MD Work Phone: [facility] Work Phone: Start: 12-03-2024 End: 12-03-[address] Sherice Fernandez MD -[facility] Work Phone: Start: 12-03-2024 End: 12-03-2024 Dr. Sherice Fernandez MD -[facility] Work Phone: Start: 12-02-2024 End: 12-02-2024 Patient encounter procedure Sharda Bronson INSULATION BLOWER- -[facility] Work Phone: Start: 12-02-2024 End: 12-02-2024 Sharda Bronson INSULATION BLOWER-C -[facility] Work Phone: Start: 12-02-2024 End: 12-03-2024 ambulatory [facility] Facility:[facility] Start: 11-24-2024 End: 11-24-[address] Sherice Fernandez MD -[facility] Work Phone: Start: 11-24-2024 End: 11-24-2024 Dr. Sherice Fernandez MD -[facility] Work Phone: Start: 11-24-2024 End: 11-24-2024 ambulatory [facility] Facility:[facility] Start: 11-23-2024 End: 11-23-2024 Dr. [facility] Start: 11-23-2024 End: 11-23-2024 Emergency department patient visit Dr. Fabricio Lemos MD Work Phone: -Emergency Department Work Phone: Start: 11-15-2024 Non-patient / Non-visit Dr. Mae Horton DO [facility] Work Phone: Start: 11-15-2024 Dr. Mae Horton DO [facility] Inpatient [facility] Work Phone: Start: 11-14-2024 Non-patient / Non-visit Dr. Mae Horton DO [facility] Work Phone: Start: 11-14-2024 Dr. Mae Horton DO [facility] Inpatient Physicians Work Phone: Start: 11-13-2024 Non-patient / Non-visit Dr. Mae Horton DO [facility] Inpatient [facility] Work Phone: Start: 11-13-2024 Dr. Mae Castillo Inpatient Physicians Work Phone: Start: 11-12-2024 Non-patient / Non-visit Dr. Mae Kay Inpatient Physicians Work Phone: Start: 11-12-2024 End: 11-15-2024 ambulatory [facility] Facility:[facility] Start: 11-12-2024 End: 11-15-2024 Evaluation and management of inpatient Dr. Mae Horton DO [facility] Work Phone: Start: 11-12-2024 End: 11-15-2024 Dr. Mae Horton DO [facility] Care Unit Work Phone: Start: 11-12-2024 End: 11-12-[address] [facility] Start: 11-12-2024 End: 11-12-2024 Patient encounter procedure Girish Lemos MD Work Phone: [facility] Comment on above: Generalized abdomina l pain (Primary Dx); Weight loss; Liver masses; Lung mass; Abnormal MRI, liver; Nausea and vomiting, unspecified vomiting type; Diarrhea, unspecified type; Dehydration; BRBPR (bright red blood per rectum) Start: 11-11-2024 End: 11-11-2024 Patient encounter procedure Roxann Gomez NP-[place] -[facility] Start: 11-11-2024 End: 11-11-2024 Roxann Gomez NP-[place] -[facility] Start: 11-11-2024 End: 11-11-2024 ambulatory [facility] Facility:[facility] Start: 11-05-2024 End: 11-13-2024 Telephone encounter [...] End: 11-03-2024 Patient encounter procedure Roxann Gomez INSULATION BLOWER-C -[facility] Work Phone: Start: 11-03-2024 End: 11-03-2024 Roxann Gomez INSULATION BLOWER-C -[facility] Work Phone: Start: 11-03-2024 End: 11-03-2024 ambulatory Fabricio Lemos Facility:[facility] Start: 10-31-2024 End: 11-03-2024 Telephone encounter Girish Lemos MD Work Phone: [facility] [place] Comment on above: requesting disk Start: 10-30-2024 End: 12-30-2024 Follow-up encounter Girish Lemos MD Work Phone: [facility] [place] Comment on above: Results Start: 10-30-2024 End: 10-30-2024 Telephone encounter Girish Lemos MD Work Phone: [facility] [place] Comment on above: Patient Request Start: 10-30-2024 End: 10-30-2024 ambulatory GIRISH LEMOS Facility:[facility] Start: 10-30-2024 End: 10-30-2024 Subsequent hospital visit by physician Maxine [facility] (I-Stat) Work Phone: Cat Scan Comment on above: Liver masses [R16.0] Start: 10-22-2024 End: 10-22-2024 Telephone encounter Girish Lemos MD Work Phone: [facility] [place] Comment on above: Orders Start: 10-20-2024 End: 10-31-2024 Telephone encounter Girish Lemos MD Work Phone: [facility] [place] Comment on above: Results New Patient Start: 10-17-2024 End: 10-20-2024 Telephone encounter Lennox Jimenezmagdalenepaty EQUIPMENT MAINTENANCE TECHNICIAN Navigation Start: 10-17-2024 End: 10-17-2024 ambulatory GIRISH LEMOS Facility:[facility] Start: 10-17-2024 End: 10-17-2024 Patient encounter procedure Girish Lemos MD Work Phone: [facility] [place] Comment on above: Liver masses (Primar y Dx); RUQ abdominal pain; Nausea and vomiting, unspecified vomiting type; Diarrhea, unspecified type Start: 10-16-2024 End: 10-20-2024 Telephone encounter Oleg Fields APRN.CNP Work Phone: [facility] [place] Comment on above: Results Start: 10-16-2024 End: 10-16-2024 ambulatory GIRISH LEMOS Facility:[facility] Start: 10-16-2024 End: 10-16-2024 Subsequent hospital visit by physician Maxine [facility] (I-Stat) Work Phone: Cat Scan Comment on above: Generalized abdomina l pain [R10.84] Start: 10-16-2024 End: 10-16-2024 Office outpatient visit 15 minutes Oleg Fields APRN.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 Work Phone: [facility] [place] Comment on above: Generalized abdomina l pain (Primary Dx); Diarrhea, unspecified type; Nausea Start: 10-16-2024 End: 10-16-2024 ambulatory GIRISH LEMOS Facility:[facility] Start: 10-15-2024 End: 10-15-2024 ambulatory Girish Lemos MD Work Phone: [facility] [place] Comment on above: Abdominal Pain Start: 09-19-2024 End: 09-19-2024 Patient encounter procedure Girish Lemos MD Work Phone: [facility] [place] Comment on above: Primary hypertension (Primary Dx) Start: 09-19-2024 End: 09-19-2024 ambulatory GIRISH LEMOS Facility:[facility] Start: 08-27-2024 End: 08-27-2024 Telephone encounter Girish Lemos MD Work Phone: [facility] [place] Comment on above: Patient Update Start: 08-19-2024 End: 08-19-2024 Patient encounter procedure Jeanette Podlogar 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 Work Phone: [facility] [place] Comment on above: Essential hypertensi on Start: 08-19-2024 End: 08-19-2024 ambulatory JEANETTE PODLOGAR Facility:[facility] Start: 07-15-2024 End: 07-15-2024 ambulatory JEANETTE PODLOGAR Facility:[facility] Start: 07-15-2024 End: 07-15-2024 Patient encounter procedure Jeanette Podlogar 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 Work Phone: [facility] [place] Comment on above: Essential hypertensi on (Primary Dx); Non-seasonal allergic rhinitis, unspecified trigger; Encounter for immunization; Hyperlipidemia, unspecified hyperlipidemia type; Prediabetes; Stage 3 chronic kidney disease, unspecified whether stage 3a or 3b CKD (HCC); Pulmonary hypertension (HCC); First degree AV block; Acquired hypothyroidism Start: 07-15-2024 End: 07-15-2024 ambulatory JEANETTE PODLOGAR Facility:[facility] Start: 07-11-2024 End: 07-11-2024 Refill Girish Lemos MD Work Phone: [facility] [place] Comment on above: Refill Request Start: 06-25-2024 End: 06-30-2024 ambulatory Girish Lemos MD Work Phone: Internal Medicine [facility] Start: 06-16-2024 End: 06-16-2024 ambulatory Fabricio Lemos Facility:[facility] Start: 06-13-2024 End: 06-13-2024 ambulatory XUAN ERNANDEZ [facility] Start: 06-02-2024 End: 06-02-2024 ambulatory Fabricio Lemos Facility:[facility] Start: 04-28-2024 Refill Girish Lemos MD Work Phone: [facility] [place] Comment on above: Refill Request Start: 03-06-2024 End: 03-06-2024 ambulatory XUAN ERNANDEZ [facility] Start: 01-21-2024 Telephone encounter Jeanette kirkland APRN.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 Work Phone: [facility] [place] Comment on above: Results Start: 01-21-2024 End: 01-21-2024 ambulatory [facility] Work Phone: Start: 01-21-2024 End: 01-21-2024 Patient encounter procedure [facility]-Cat Scan, [facility] Work Phone: Start: 01-08-2024 End: 01-08-2024 Patient encounter procedure Jeanette Berrios APRN.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 Work Phone: [facility] [place] Comment on above: Essential hypertensi on (Primary Dx); Non-seasonal allergic rhinitis, unspecified trigger; Acquired hypothyroidism; Hyperlipidemia, unspecified hyperlipidemia type; Stage 3 chronic kidney disease, unspecified whether stage 3a or 3b CKD (HCC); Pulmonary hypertension (HCC); Muscle cramps Start: 10-23-2023 Refill Girish Lemos MD Work Phone: [facility] [place] Comment on above: Refill Request Start: 07-25-2023 ambulatory Girish Lemos MD Work Phone: Internal Medicine [facility] Start: 06-22-2023 End: 06-22-2023 Patient encounter procedure Jeanette Berrios APRN.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 Work Phone: [facility] [place] Comment on above: Essential hypertensi on (Primary Dx); Encounter for immunization; Prediabetes; Acquired hypothyroidism; Stage 3 chronic kidney disease, unspecified whether stage 3a or 3b CKD (HCC); First degree AV block Start: 06-21-2023 End: 06-21-2023 ambulatory XUAN ERNANDEZ [facility] Start: 05-07-2023 Telephone encounter Fabricio Lemos MD Work Phone: [facility] [place] Comment on above: Consult Start: 05-07-2023 Non-patient / Non-visit Dr. Johnny Lemos Work Phone: [facility] Start: 05-03-2023 End: 05-03-[address] Fabricio Lemos Work Phone: [facility] Work Phone: Start: 05-03-2023 End: 05-03-[address] Fab[facility] Work Phone: Start: 05-02-2023 Non-patient / Non-visit Dr. Johnny Lemos Work Phone: [facility] Start: 05-01-2023 End: 05-01-[address] Fabricio Lemos [facility] Work Phone: Start: 04-13-2023 Refill Girish Lemos MD Work Phone: [facility] Comment on above: Refill Request Start: 03-21-2023 End: 03-21-2023 Patient encounter procedure Jeanette Berrios APRN.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 Work Phone: [facility] Comment on above: Primary hypertension (Primary Dx); Bradycardia; Skin eruption Start: 03-19-2023 Telephone encounter Fabricio Lemos MD Work Phone: [facility] Comment on above: Request Outside [facility] Records Start: 03-13-2023 End: 03-13-[address] [facility] Work Phone: Start: 02-21-2023 Telephone encounter Jeanette kirkland APRN.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 Work Phone: [facility] Comment on above: Results Start: 02-20-2023 End: 02-20-2023 Patient encounter procedure Jeanette Berrios APRN.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 Work Phone: [facility] Comment on above: Essential hypertensi on (Primary Dx); Prediabetes; Acquired hypothyroidism; Hyperlipidemia, unspecified hyperlipidemia type; Bradycardia; First degree AV block; Stage 3 chronic kidney disease, unspecified whether stage 3a or 3b CKD ([facility]) Start: 01-24-2023 End: 01-24-2023 Patient encounter procedure Talat Merida Work Phone: Podiatry Comment on above: Hammertoe of left fo ot (Primary Dx); Pain in toe of left foot; Other acute pulmonary embolism, unspecified whether acute cor pulmonale present ([facility]) Start: 01-24-2023 End: 01-24-2023 Subsequent hospital visit by physician Xr [facility] Work Phone: Radiology Comment on above: Pain [R52] Start: 01-18-2023 End: 01-18-[address] Fabricio Lemos Work Phone: [facility] Work Phone: Start: 01-18-2023 End: 01-18-[address] Fabricio Lemos Work Phone: [facility]-Cat [facility], [facility] Start: 09-25-2022 End: 09-25-[address] Fabricio Lemos Work Phone: [facility]-Pulmonary Medicine [facility] Start: 09-22-2022 Telephone encounter Jeanette kirkland APRN.CNP Work Phone: [facility] Comment on above: Results Start: 09-20-2022 End: 09-20-2022 Subsequent hospital visit by physician Bone Density [facility] Work Phone: Radiology Comment on above: Screening for osteop orosis [Z13.820] Start: 09-19-2022 End: 09-19-2022 Patient encounter procedure Girish Lemos MD Work Phone: [facility] Comment on above: Skin tag (Primary Dx ); S/P cryotherapy of skin lesion Start: 09-13-2022 End: 09-13-2022 Emergency department patient visit Dr. Fabricio Lemos Work Phone: [facility]-Emergency Department Start: 09-08-2022 Telephone encounter Fabricio Lemos MD Work Phone: [facility] Comment on above: Medication Request Start: 09-04-2022 End: 09-04-[address] Fabricio Lemos Work Phone: [facility] Medicine [facility] Start: 08-23-2022 Telephone encounter Jeanette kirkland APRN.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 Work Phone: [facility] Comment on above: Results Start: 08-22-2022 End: 08-22-2022 Patient encounter procedure Jeanette Berrios APRN.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 Work Phone: [facility] Comment on above: Essential hypertensi on (Primary Dx); Encounter for immunization; Prediabetes; Hyperlipidemia, unspecified hyperlipidemia type; Acquired hypothyroidism; Ringworm of body; Screening for osteoporosis; Gastroesophageal reflux disease without esophagitis; Dyspareunia in female; Abnormal vaginal bleeding in postmenopausal patient Start: 08-17-2022 ambulatory Girish Lemos MD Work Phone: Internal Medicine [facility] Start: 08-04-2022 Refill Girish Lemos MD Work Phone: [facility] Comment on above: Refill Request Start: 07-26-2022 Telephone encounter Rosie Mcintosh APRN.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 Work Phone: [facility] Comment on above: Results Start: 07-24-2022 End: 07-24-2022 Patient encounter procedure Jamaica Malone APRN.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 Work Phone: [facility] Comment on above: Gross hematuria ([place] ch[place] Dx); Acute vaginitis; Vulvar irritation Start: 07-24-2022 ambulatory Girish Lemos MD Work Phone: [facility] Comment on above: urinary symptoms Start: 03-23-2022 ambulatory Girish Lemos MD Work Phone: [facility] Comment on above: Cough Start: 03-23-2022 End: 03-23-2022 Patient encounter procedure Girish Lemos MD Work Phone: [facility] Comment on above: Suspected COVID-19 v irus infection (Primary Dx); Non-seasonal allergic rhinitis, unspecified trigger Start: 02-22-2022 Refill Girish Lemos MD Work Phone: [facility] Comment on above: Refill Request Start: 01-18-2022 End: 01-18-[address] Fabricio Lemos Work Phone: [facility] Start: 01-05-2022 End: 01-05-[address] Fab[facility]io Lem[facility] Start: 11-25-2021 End: 11-25-2021 Subsequent hospital visit by physician Xr [facility] Work Phone: Radiology Comment on above: Pneumonia due to inf ectious organism, unspecified laterality, unspecified part of lung [J18.9] Start: 11-17-2021 End: 11-17-2021 Emergency department patient visit Dr. Fabricio Lemos Work Phone: [facility]-Emergency Department Start: 11-15-2021 End: 11-15-2021 Subsequent hospital visit by physician Xr [facility] Work Phone: Radiology Comment on above: Fever, unspecified f ever cause [R50.9] Start: 11-12-2021 End: 11-12-2021 Emergency department patient visit Dr. Fabricio Lemos Work Phone: [facility]-Emergency Department Start: 10-06-2021 End: 10-06-[address] Fabricio Lemos Work Phone: [facility]-Sleep Lab Start: 09-08-2020 End: 09-08-2020 Patient encounter procedure TONI [facility] Start: 09-06-2020 End: 09-06-2020 Patient encounter procedure TONI [facility] Start: 09-01-2020 End: 09-01-2020 Patient encounter procedure TONI [facility] Start: 08-25-2020 End: 08-25-2020 Patient encounter procedure TONI [facility] Start: 08-18-2020 End: 08-18-2020 Patient encounter procedure [facility] Procedures Date Procedure Procedure Detail Performing Clinician Start: 04-29-[address] Fabricio Lemos MD Work Phone: Start: 04-27-[address] Fabricio Lemos MD Work Phone: Start: 04-27-2025 Serum inorganic phos phate measurement Dr. Fabricio Lemos MD Work Phone: Start: 04-20-[address] Fabricio Lemos MD Work Phone: Start: 04-20-2025 Computed tomography of abdomen and pelvis with intravenous contrast Dr. Fabricio Lemos MD Work Phone: Start: 04-06-2025 MRI of lumbar spine with [...] 11-13-2024 Serum inorganic phos phate measurement Dr. aFbricio Lemos MD Work Phone: Start: 11-12-2024 Iadna-dna/rna [...] abdomen & pelvis w/contrast material Oleg Fields APRN.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 Work Phone: Start: 05-06-2024 CT of chest Start: 06-22-2023 INFLUENZA VACCINE, P RSV FREE, AGE 65+ YR, HIGH DOSE, QUADRIVALENT (FLUZONE HIGH-DOSE) Jeanette Podlogar 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 Work Phone: Start: 02-20-2023 Ecg routine ecg w/le ast 12 lds i&r only [facility] Provider Start: 02-20-2023 Lipid 1996 panel - S anahi or Plasma Jeanette Podlogar 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 Work Phone: Start: 01-24-2023 Radex foot complete minimum 3 views Talat Merida Work Phone: Start: 01-18-[address] Fili Lemos Work Phone: Start: 09-20-2022 Dxa bone density tripp dy 1/> sites axial skel Jeanette Podlogar CHEMISTRY PROFESSOR.[facility] Work Phone: Start: 09-13-2022 Plain chest X-ray Dr. Ans[place] Lemos Work Phone: Start: 08-22-2022 INFLUENZA SEASONAL QUADRIVALENT HIGH DOSE AGE 65+ Jeanette Podlogar CHEMISTRY PROFESSOR.[facility] Work Phone: Start: 07-24-2022 Urnls dip stick/tabl et rgnt auto w/o microscopy Jamaica Malone CHEMISTRY PROFESSOR.[facility] Work Phone: Start: 03-23-2022 2019 CORONAVIRUS Fili Lemos MD Work Phone: Start: 01-18-[address] Fili Lemos Work Phone: Start: 11-25-2021 Radiologic exam ches t 2 views Girish Lemos MD Work Phone: Start: 11-17-2021 Plain chest X-ray Dr. Ansley Lemos Work Phone: Start: 11-15-2021 Radiologic exam ches t 2 views Jeanette Podlogshai 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 Work Phone: Start: 11-12-2021 Plain chest X-ray Dr. Ansley Lemos Work Phone: Start: 11-12-2021 SARS-CoV-2 Antigen (Rapid) Dr. Fabricio Lemos Work Phone: Start: 07-16-2019 Mammography Fabricio Lemos MD Work Phone: Start: 03-28-2018 Colonoscopy Fabricio Lemos MD Work Phone: Plan of Treatment Date Care Activity Detail Author Start: 2029 RSV Vaccine (1 - 1-dose 75+ series) RSV Vaccine (1 - 1-dose 75+ series) [facility] Start: 02-21-2028 Lipid 1996 panel - Serum or Plasma Lipid Screening [facility] Start: 02-21-2028 Lipid panel Lipid Screening [facility] Start: 02-21-2028 LIPID SCREEN LIPID SCREEN [facility] Start: 10-16-2027 Diabetes Screening Diabetes Screening [facility] Start: 08-22-2027 LIPID SCREEN LIPID SCREEN [facility] Start: 07-15-2027 Diabetes Screening Diabetes Screening [facility] Start: 01-17-2027 Diabetes Screening Diabetes Screening [facility] Start: 02-20-2026 DIABETES SCREEN DIABETES SCREEN [facility] Start: 02-20-2026 Diabetes Screening Diabetes Screening [facility] Start: 01-26-2026 Annual PCP Team Chronic Disease Visit Annual PCP Team Chronic Disease Visit [facility] Start: 01-26-2026 BP Controlled (<130/80) BP Controlled (<130/80) [facility] Start: 01-13-2026 Annual PCP Team Chronic Disease Visit Annual PCP Team Chronic Disease Visit [facility] Start: 01-13-2026 BP Controlled (<130/80) BP Controlled (<130/80) [facility] Start: 11-17-2025 LIPID SCREEN LIPID SCREEN [facility] Start: 11-12-2025 Annual PCP Team Chronic Disease Visit Annual PCP Team Chronic Disease Visit [facility] Start: 11-12-2025 BP Controlled (<130/80) BP Controlled (<130/80) [facility] Start: 10-30-2025 Screening for malignant neoplasm of lung Lung Cancer Screening [facility] Start: 10-17-2025 Annual PCP Team Chronic Disease Visit Annual PCP Team Chronic Disease Visit [facility] Start: 10-17-2025 BP Controlled (<130/80) BP Controlled (<130/80) [facility] Start: 10-16-2025 Annual PCP Team Chronic Disease Visit Annual PCP Team Chronic Disease Visit [facility] Start: 10-16-2025 Creatinine measurement Serum Creatinine [facility] Start: 09-19-2025 Annual PCP Team Chronic Disease Visit Annual PCP Team Chronic Disease Visit [facility] Start: 09-19-2025 BP Controlled (<130/80) BP Controlled (<130/80) [facility] Start: 08-22-2025 DIABETES SCREEN DIABETES SCREEN [facility] Start: 08-19-2025 Annual PCP Team Chronic Disease Visit Annual PCP Team Chronic Disease Visit [facility] Start: 07-15-2025 Annual PCP Team Chronic Disease Visit Annual PCP Team Chronic Disease Visit [facility] Start: 07-15-2025 Creatinine measurement Serum Creatinine [facility] Start: 05-18-2025 Influenza vaccination Influenza Vaccine (#1) [facility] Start: 04-29-2025 Cortisol [Mass/volume] in Serum or Plasma [facility] Start: 04-29-2025 End: 04-29-2025 [facility] Start: 04-27-2025 [facility] Start: 04-27-2025 Vital signs measurements [facility] Start: 04-20-2025 [facility] Start: 04-14-2025 End: 04-14-2025 Patient encounter procedure 04/14/2025 9:40 AM EDT Office Visit [facility] [place] [address] [place] [address] Girish Lemos MD [address] [place] [address] 3 month follow up [facility] [place] Comment on above: 3 month follow up Start: 04-06-2025 [facility] Start: 04-06-2025 Serum inorganic phosphate measurement [facility] Start: 04-06-2025 Vital signs measurements [facility] Start: 04-05-2025 End: 04-06-2025 [facility] Start: 03-18-2025 Vital signs measurements [facility] Start: 03-17-2025 Vital signs measurements [facility] Start: 03-16-2025 [facility] Start: 03-16-2025 Vital signs measurements [facility] Start: 02-26-2025 Vital signs measurements [facility] Start: 02-25-2025 Vital signs measurements [facility] Start: 02-24-2025 [facility] Start: 02-24-2025 Vital signs measurements [facility] Start: 02-17-2025 Venous catheter care management [facility] Start: 02-16-2025 Anes dx/ther nerve block/injection prone pos [facility] Start: 02-16-2025 Njx anes&/strd w/img tfrml edrl lmbr/sac 1 lvl [facility] Start: 02-16-2025 Njx anes&/strd w/img tfrml edrl lmbr/sac ea lv [facility] Start: 02-16-2025 Injection of spinal epidural space [facility] Start: 02-16-2025 X-ray of lumbar spine, two or three views [facility] Start: 02-16-2025 Patient discharge [facility] Start: 02-05-2025 Vital signs measurements [facility] Start: 02-04-2025 Vital signs measurements [facility] Start: 02-03-2025 [facility] Start: 02-03-2025 Vital signs measurements [facility] Start: 01-20-2025 Screening for malignant neoplasm of lung Lung Cancer Screening [facility] Start: 01-17-2025 Creatinine measurement Serum Creatinine [facility] Start: 01-13-2025 End: 01-13-2025 Patient encounter procedure 01/13/2025 9:20 AM EDT Office Visit [facility] [place] [address] [place] [address] Girish Lemos MD [address] [place] [address] 6 month follow up [facility] Comment on above: 6 month follow up Start: 01-10-2025 Patient discharge [facility] Start: 01-09-2025 Continuous positive airway pressure ventilation treatment [facility] Start: 01-09-2025 Chemotherapy care management [facility] Start: 01-09-2025 Venous catheter care management [facility] Start: 01-09-2025 Assessment of risk of venous thromboembolism [facility] Start: 01-09-2025 Care regimes management [facility] Start: 01-09-2025 Incentive spirometry [facility] Start: 01-09-2025 Insertion of catheter into peripheral vein [facility] Start: 01-09-2025 Measuring intake and output [facility] Start: 01-09-2025 Notification of physician [facility] Start: 01-09-2025 Oxygen therapy [facility] Start: 01-09-2025 Providing care according to standard [facility] Start: 01-09-2025 Provision of activity privileges [facility] Start: 01-09-2025 Referral to service [facility] Start: 01-09-2025 End: 01-09-2025 [facility] Start: 01-09-2025 Admission procedure [facility] Start: 01-09-2025 [facility] Start: 01-09-2025 Chemotherapy care management [facility] Start: 01-09-2025 Inhalation therapy procedure [facility] Start: 01-09-2025 Patient referral to dietitian [facility] Start: 01-08-2025 Vital signs measurements [facility] Start: 01-07-2025 Annual PCP Team Chronic Disease Visit Annual PCP Team Chronic Disease Visit [facility] Start: 01-07-2025 Vital signs measurements [facility] Start: 01-06-2025 Patient referral [facility] Work Phone: Start: 01-06-2025 Vital signs measurements [facility] Start: 12-26-2024 End: 12-26-2024 Patient encounter procedure 12/26/2024 10:30 AM EDT Office Visit [facility] [address] [place] [id number] Rachael Sheikh, 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 [address] [place] [address] Abnormal MRI, liver [R93.2] [facility] Comment on above: Abnormal MRI, liver [R93.2] Start: 12-18-2024 Vital signs measurements [facility] Start: 12-17-2024 Vital signs measurements [facility] Start: 12-16-2024 Patient referral [facility] Work Phone: Start: 12-16-2024 Venous catheter care management [facility] Start: 12-16-2024 Vital signs measurements [facility] Start: 12-12-2024 Anesthesia access central venous circulation [facility] Start: 12-12-2024 Insj tunneled ctr vad w/subq port age 4 yr/> [facility] Start: 12-12-2024 [facility] Start: 12-12-2024 Patient discharge [facility] Start: 12-09-2024 Patient referral [facility] Work Phone: Start: 11-24-2024 Patient referral [facility] Work Phone: Start: 11-23-2024 [facility] Start: 11-15-2024 DIABETES SCREEN DIABETES SCREEN [facility] Start: 11-15-2024 Provision of activity privileges [facility] Start: 11-15-2024 Patient discharge [facility] Start: 11-14-2024 [facility] Start: 11-14-2024 Following clinical pathway protocol [facility] Start: 11-14-2024 Referral to service [facility] Start: 11-14-2024 End: 11-14-2024 Patient encounter procedure 11/14/2024 8:40 AM EST Office Visit Family Medicine [place] [address] [place] [address] Girish Lemos MD [address] [place] [address] 4 week follow up [facility] Comment on above: 4 week follow up Start: 11-14-2024 Catheterization of vein [facility] Start: 11-14-2024 Vital signs measurements [facility] Start: 11-13-2024 Provision of activity privileges [facility] Start: 11-12-2024 Biopsy liver needle percutaneous [facility] Start: 11-12-2024 Assessment of risk of venous thromboembolism [facility] Start: 11-12-2024 Inhalation therapy procedure [facility] Start: 11-12-2024 Insertion of catheter into peripheral vein [facility] Start: 11-12-2024 Measuring intake and output [facility] Start: 11-12-2024 Patient referral to dietitian [facility] Start: 11-12-2024 Providing care according to standard [facility] Start: 11-12-2024 Provision of activity privileges [facility] Start: 11-12-2024 Referral to occupational therapist [facility] Start: 11-12-2024 Referral to service [facility] Start: 11-12-2024 End: 11-12-2024 [facility] Start: 11-12-2024 Admission procedure [facility] Start: 11-05-2024 End: 11-05-2024 ambulatory 11/05/2024 9:00 AM EST Visit (SP) Office Hematology/Oncology [address] [place] [address] [place] [address] [place] [address] 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 BLOWER/LIVER MASSES/REF PROV DR LEMOS* Hematology/Oncology Comment on above: INSULATION BLOWER/LIVER MASSES/REF PROV DR LEMOS* Start: 10-30-2024 End: 10-30-2024 Patient encounter procedure 10/30/2024 8:00 AM EST Appointment Cat Scan [address] [place] [address] Liver masses [R16.0] [facility] Comment on above: Liver masses [R16.0] Start: 10-22-2024 End: 10-22-2024 Patient encounter procedure 10/22/2024 3:40 PM EST Appointment Cat Scan [address] [place] [address] Liver masses [R16.0] [facility] Comment on above: Liver masses [R16.0] Start: 10-21-2024 End: 10-21-2024 Patient encounter procedure 10/21/2024 8:20 AM EST Appointment [facility] [address] [place] [address] Liver masses [R16.0] [facility] Comment on above: Liver masses [R16.0] Start: 10-20-2024 End: 10-20-2024 Patient encounter procedure 10/20/2024 11:20 AM EST Appointment [facility] [address] [place] [address] Liver masses [R16.0] [facility] Comment on above: Liver masses [R16.0] Start: 10-17-2024 End: 01-16-2025 [id number] [Mass/volume] in Serum or Plasma [facility] Comment on above: Expected: 10/17/2024, Expires: Start: 10-17-2024 End: 10-17-2024 Patient encounter procedure 10/17/2024 1:00 PM EST Office [facility] [address] [place] [address] Girish Lemos MD [address] [place] [address] follow up to discuss resutls [facility] Comment on above: follow up to discuss resutls Start: 10-16-2024 End: 01-15-2025 Amylase [Enzymatic activity/volume] in Serum or Plasma [facility] Comment on above: Expected: 10/16/2024, Expires: Start: 10-16-2024 End: 01-15-2025 Lipase [Enzymatic activity/volume] in Serum or Plasma [facility] Work Phone: Comment on above: Expected: 10/16/2024, Expires: Start: 10-16-2024 End: 10-16-2024 Patient encounter procedure 10/16/2024 8:40 AM EST Office Visit [facility] [address] [place], [place] [id number] Oleg Fields APRN.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 [address] [place] [address] Abdominal Pain. See triage 10/15/2024. Family [place] Comment on above: Abdominal Pain. See triage 10/15/2024. Start: 09-19-2024 End: 09-19-2024 Patient encounter procedure 09/19/2024 9:40 AM EST Office Visit Family [place] [address] [place] [address] Girish Lemos MD [address] [place] [address] 1 month follow up [facility] [place] Comment on above: 1 month follow up Start: 09-17-2024 Advance Directive Discussion Advance Directive Discussion [facility] Start: 09-17-2024 Medicare Advantage Annual Wellness Visit Medicare Advantage Annual Wellness Visit [facility] Start: 08-19-2024 End: 08-19-2024 Patient encounter procedure 08/19/2024 10:20 AM EST Office Visit [facility] [place] [address] [place] [address] Jeanette Berrios APRN.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 [address] [place] [address] BP check [facility] [place] Comment on above: BP check Start: 07-15-2024 End: 10-14-2024 Comprehensive metabolic 2000 panel - Serum or Plasma [facility] Work Phone: Comment on above: Expected: 07/15/2024, Expires: Start: 07-15-2024 End: 10-14-2024 Hemoglobin A1c in Blood [facility] Comment on above: Expected: 07/15/2024, Expires: Start: 07-15-2024 End: 07-15-2024 Patient encounter procedure 07/15/2024 9:00 AM EDT Office Visit Family [place] [address] [place] [address] Jeanette Berrios APRN.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 [address] [place] [address] 6 month follow up [facility] Comment on above: 6 month follow up Start: 07-09-2024 End: 07-09-2024 Patient encounter procedure 07/09/2024 9:40 AM EDT Office Visit Family [place] [address] [place] [address] PodlogarJeanette APRN.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 [address] [place] [address] 6 month follow up [facility] Medicine [place] Comment on above: 6 month follow up Start: 06-22-2024 Annual PCP Team Chronic Disease Visit Annual PCP Team Chronic Disease Visit [facility] Start: 06-22-2024 BP Controlled (<130/80) BP Controlled (<130/80) [facility] Start: 05-18-2024 Covid-19 Vaccine () Covid-19 Vaccine () [facility] Start: 05-18-2024 Influenza vaccination Influenza Vaccine (#1) [facility] Start: 03-21-2024 ANNUAL PCP TEAM CHRONIC DISEASE VISIT ANNUAL PCP TEAM CHRONIC DISEASE VISIT [facility] Start: 02-21-2024 ANNUAL PCP TEAM CHRONIC DISEASE VISIT ANNUAL PCP TEAM CHRONIC DISEASE VISIT [facility] Start: 02-21-2024 Creatinine measurement Serum Creatinine [facility] Start: 02-21-2024 SERUM CREATININE SERUM CREATININE [facility] Start: 01-19-2024 Influenza vaccination LUNG CANCER SCREENING [facility] Start: 01-19-2024 Screening for malignant neoplasm of lung Lung Cancer Screening [facility] Start: 01-08-2024 End: 04-08-2024 25-hydroxyvitamin D3 [Mass/volume] in Serum or Plasma VITAMIN D 25 HYDROXY Lab Routine Muscle cramps Expected: 01/08/2024, Expires: 04/08/2024 [facility] Work Phone: Comment on above: Expected: 01/08/2024, Expires: Start: 01-08-2024 End: 04-08-2024 CBC W Auto Differential panel - Blood COMPLETE BLOOD COUNT AND DIFFERENTIAL Lab Routine Muscle cramps Expected: 01/08/2024, Expires: 04/08/2024 [facility] Comment on above: Expected: 01/08/2024, Expires: Start: 01-08-2024 End: 04-08-2024 Comprehensive metabolic 2000 panel - Serum or Plasma COMPREHENSIVE METABOLIC PANEL Lab Routine Essential hypertension Hyperlipidemia, unspecified hyperlipidemia type Expected: 01/08/2024, Expires: 04/08/2024 [facility] Comment on above: Expected: 01/08/2024, Expires: Start: 01-08-2024 End: 04-08-2024 Thyrotropin [Units/volume] in Serum or Plasma THYROID STIMULATING HORMONE Lab Routine Muscle cramps Expected: 01/08/2024, Expires: 04/08/2024 [facility] Comment on above: Expected: 01/08/2024, Expires: Start: 09-19-2023 ANNUAL PCP TEAM CHRONIC DISEASE VISIT ANNUAL PCP TEAM CHRONIC DISEASE VISIT [facility] Start: 09-19-2023 BP CONTROLLED (<130/80) BP CONTROLLED (<130/80) [facility] Start: 09-17-2023 Advance Directive Discussion Advance Directive Discussion [facility] Start: 08-22-2023 ANNUAL PCP TEAM CHRONIC DISEASE VISIT ANNUAL PCP TEAM CHRONIC DISEASE VISIT [facility] Start: 08-22-2023 End: 10-22-2023 Comprehensive metabolic 2000 panel - Serum or Plasma COMP METABOLIC PANEL Lab Routine Essential hypertension Expected: 08/22/2023, Expires: 10/22/2023 [facility] Work Phone: Comment on above: Expected: 08/22/2023, Expires: 4 Start: 08-22-2023 End: 10-22-2023 Hemoglobin A1c in Blood HGB A1C Lab Routine Prediabetes Expected: 08/22/2023, Expires: 10/22/2023 [facility] Work Phone: Comment on above: Expected: 08/22/2023, Expires: Start: 08-22-2023 SERUM CREATININE SERUM CREATININE [facility] Start: 07-24-2023 BP CONTROLLED (<130/80) BP CONTROLLED (<130/80) [facility] Start: 05-18-2023 Covid-19 Vaccine () Covid-19 Vaccine () [facility] Start: 05-18-2023 Influenza vaccination INFLUENZA (#1) [facility] Start: 03-28-2023 Colonoscopy COLONOSCOPY [facility] Start: 03-28-2023 COLORECTAL CANCER SCREENING COLORECTAL CANCER SCREENING [facility] Start: 03-28-2023 Screening for malignant neoplasm of colon [facility] Start: 03-23-2023 ANNUAL PCP TEAM CHRONIC DISEASE VISIT ANNUAL PCP TEAM CHRONIC DISEASE VISIT [facility] Start: 02-20-2023 End: 04-22-2023 Comprehensive metabolic 2000 panel - Serum or Plasma [facility] Work Phone: Comment on above: Expected: 02/20/2023, Expires: 3 Start: 02-20-2023 End: 04-22-2023 Hemoglobin A1c in Blood [facility] Work Phone: Comment on above: Expected: 02/20/2023, Expires: 3 Start: 02-20-2023 End: 04-22-2023 Lipid 1996 panel - Serum or Plasma [facility] Work Phone: Comment on above: Expected: 02/20/2023, Expires: 3 Start: 02-20-2023 End: 04-22-2023 Magnesium [Mass/volume] in Serum or Plasma [facility] Work Phone: Comment on above: Expected: 02/20/2023, Expires: 3 Start: 02-20-2023 End: 04-22-2023 Thyrotropin [Units/volume] in Serum or Plasma [facility] Work Phone: Comment on above: Expected: 02/20/2023, Expires: 3 Start: 01-18-2023 Influenza vaccination LUNG CANCER SCREENING [facility] Start: 11-25-2022 ANNUAL PCP TEAM CHRONIC DISEASE VISIT ANNUAL PCP TEAM CHRONIC DISEASE VISIT [facility] Start: 11-25-2022 BP CONTROLLED (<130/80) BP CONTROLLED (<130/80) [facility] Start: 09-17-2022 ADVANCE DIRECTIVE DISCUSSION ADVANCE DIRECTIVE DISCUSSION [facility] Start: 09-13-2022 Enteric precautions [facility] Work Phone: Start: 08-22-2022 End: 10-22-2022 Comprehensive metabolic 2000 panel - Serum or Plasma [facility] Work Phone: Comment on above: Expected: 08/22/2022, Expires: 3 Start: 08-22-2022 End: 10-22-2022 Hemoglobin A1c in Blood [facility] Work Phone: Comment on above: Expected: 08/22/2022, Expires: 3 Start: 08-22-2022 End: 10-22-2022 Lipid 1996 panel - Serum or Plasma [facility] Work Phone: Comment on above: Expected: 08/22/2022, Expires: 3 Start: 08-22-2022 End: 10-22-2022 Thyrotropin [Units/volume] in Serum or Plasma [facility] Work Phone: Comment on above: Expected: 08/22/2022, Expires: 3 Start: 07-24-2022 End: 09-23-2022 BACTERIAL VAGINOSIS AMPLIFICATION BACTERIAL VAGINOSIS AMPLIFICATION Lab Routine Acute vaginitis Expected: 07/24/2022, Expires: 09/23/2022 [facility] Work Phone: Comment on above: Expected: 07/24/2022, Expires: 3 Start: 05-18-2022 Influenza vaccination [facility] Start: 11-17-2021 BP CONTROLLED (<130/80) BP CONTROLLED (<130/80) [facility] Start: 09-17-2021 ADVANCE DIRECTIVE DISCUSSION ADVANCE DIRECTIVE DISCUSSION [facility] Start: 04-26-2021 COVID-19 VACCINE (3 - Booster for Moderna series) COVID-19 VACCINE (3 - Booster for Moderna series) [facility] Start: 04-09-2021 PNEUMOCOCCAL: 65+ (2 - PCV) PNEUMOCOCCAL: 65+ (2 - PCV) [facility] Start: 01-19-2021 COVID-19 VACCINE (3 - Booster for Moderna series) COVID-19 VACCINE (3 - Booster for Moderna series) [facility] Start: 01-19-2021 COVID-19 VACCINE (3 - Moderna series) COVID-19 VACCINE (3 - Moderna series) [facility] Start: 07-16-2020 Mammography [facility] Start: 07-16-2020 Screening for malignant neoplasm of breast Mammogram Screening [facility] Start: 2019 BONE DENSITY BONE DENSITY [facility] Start: 07-03-2018 Urine microalbumin profile DTAP,TDAP,TD (1 - Tdap) [facility] Start: 2014 RSV Vaccine (1 - 1-dose 60+ series) RSV Vaccine (1 - 1-dose 60+ series) [facility] Start: 2004 Influenza vaccination LUNG CANCER SCREENING [facility] Start: 2004 SHINGRIX VACCINE (1 of 2) SHINGRIX VACCINE (1 of 2) [facility] Start: 1999 COLOGUARD (FIT-DNA) COLOGUARD (FIT-DNA) [facility] Start: [address] COLONOGRAPHY [facility] Start: 1999 FECAL OCCULT BLOOD FECAL OCCULT BLOOD [facility] Start: 1999 Screening for malignant neoplasm of colon [facility] Start: 1999 SIGMOIDOSCOPY SIGMOIDOSCOPY [facility] Alanine aminotransfe rase [Enzymatic activity/volume] in Serum or Plasma [facility] Albumin [Mass/volume ] in Serum or Plasma [facility] Alkaline phosphatase [Enzymatic activity/volume] in Serum or Plasma [facility] Anion gap in Serum o r Plasma [facility] Bacteria identified in Urine by Culture URINE CULTURE Microbiology Routine Gross hematuria Ordered: 07/24/2022 [facility] Work Phone: Comment on above: Ordered: 07/24/2022 Bilirubin, total measurement [facility] BUN/Creatinine ratio [facility] Calcium [Mass/volume ] in Serum or Plasma [facility] SUNI / TRICHOMONA S AMPLIFICATION SUNI / TRICHOMONAS AMPLIFICATION Microbiology Routine Acute vaginitis Ordered: 07/24/2022 [facility] Work Phone: Comment on above: Ordered: 07/24/2022 Carbon dioxide, tota l [Moles/volume] in Central venous blood [facility] CBC W Auto Different ial panel - Blood [facility] Comprehensive metabo lic 1999 panel - Serum or Plasma [facility] metabo lic 1999 panel - Serum or Plasma [facility] COVID & INFLUENZA A/ B & RSV PCR, ROUTINE COVID & INFLUENZA A/B & RSV PCR, ROUTINE Microbiology Routine Viral URI with cough 01/26/2025 1:45 PM EDT [facility] Work Phone: Creatinine [Mass/vol ume] in Serum or Plasma [facility] CT Chest and Abdomen W contrast IV [facility] CT Chest and Abdomen W contrast IV [facility] End: 11-16-2025 CT Chest W contrast IV CT CHEST W IVCON Radiology STAT Liver masses 1 Occurrences starting 10/17/2024 until 11/16/2025 [facility] Work Phone: Comment on above: 1 Occurrences starting 10/17/2024 until 11/16/2025 CT Chest W contrast IV [facility] End: 07-25-2025 DBT Breast - bilateral screening LYN SCREENING W ANT Radiology Routine Encounter for screening mammogram for breast cancer 1 Occurrences starting 06/25/2024 until 07/25/2025 [facility] Work Phone: Comment on above: 1 Occurrences starting 06/25/2024 until 07/25/2025 End: 09-21-2023 DXA-AXIAL SKELETON DXA-AXIAL SKELETON Radiology Routine Screening for osteoporosis 1 Occurrences starting 08/22/2022 until 09/21/2023 [facility] Work Phone: Comment on above: 1 Occurrences starting 08/22/2022 until 09/21/2023 End: 02-21-2024 ECG COMPLETE ECG COMPLETE ECG Routine Bradycardia 1 Occurrences starting 02/20/2023 until 02/21/2024 [facility] Work Phone: Comment on above: 1 Occurrences starting 02/20/2023 until 02/21/2024 ECG COMPLETE ECG COMPLETE ECG 02/20/2023 9:30 AM EDT [facility] Erythrocyte mean corpuscular volume determination [facility] End: 02-21-2024 EXERCISE STRESS ECG (WITHOUT IMAGING) EXERCISE STRESS ECG (WITHOUT IMAGING) Cardiology Routine Bradycardia First degree AV block 1 Occurrences starting 02/20/2023 until 02/21/2024 [facility] Work Phone: Comment on above: 1 Occurrences starting 02/20/2023 until 02/21/2024 Ferritin [Mass/volum e] in Serum or Plasma [facility] Glucose [Mass/volume ] in Serum or Plasma [facility] Hematocrit [Volume Fraction] of Blood [facility] Hemoglobin [Mass/vol ume] in Blood [facility] Interventional radio logy Consult note IR INTERVENTIONAL RADIOLOGY CONSULT Radiology Routine Abnormal MRI, liver Ordered: 10/16/2024 [facility] Work Phone: Comment on above: Ordered: 10/16/2024 Iron and Iron bindin g capacity panel - Serum or Plasma [facility] Lactate dehydrogenas e measurement [facility] Leukocytes [#/volume ] in Blood [facility] Magnesium measurement [facility] Magnesium measurement [facility] End: 09-16-2023 [facility] SCREENING [facility] SCREENING Radiology Routine Encounter for screening mammogram for breast cancer 1 Occurrences starting 08/17/2022 until 09/16/2023 [facility] Work Phone: Comment on above: 1 Occurrences starting 08/17/2022 until 09/16/2023 End: 08-23-2024 [facility] SCREENING [facility] SCREENING Radiology Routine Encounter for screening mammogram for breast cancer 1 Occurrences starting 07/25/2023 until 08/23/2024 [facility] Work Phone: Comment on above: 1 Occurrences starting 07/25/2023 until 08/23/2024 Mean corpuscular hemoglobin concentration determination [facility] Mean corpuscular hemoglobin determination [facility] Measurement of renal function [facility] MR Lumbar spine WO a nd W contrast IV [facility] Neutrophil count [facility] Neutrophil percent differential count [facility] Patient Education [facility] Work Phone: Patient referral [facility] Work Phone: Platelets [#/volume] in Blood [facility] Positron emission tomography with computed tomography [facility] Potassium measurement [facility] Red blood cell count [facility] Red cell distributio n width determination [facility] Removal skn tags digital photographer fibrq tags any area upw/15 REMOVAL OF SKIN TAGS 1-15 Procedures Routine Skin tag S/P cryotherapy of skin lesion Ordered: 09/19/2022 [facility] [facility] Work Phone: Comment on above: Ordered: 09/19/2022 Reticulocyte count [facility] Serum chloride measurement [facility] Serum inorganic phosphate measurement [facility] Sodium measurement [facility] Thyroid stimulating hormone measurement [facility] Total protein measurement [facility] Urea nitrogen [Mass/volume] in Serum or Plasma [facility] Immunizations Immunization Date Immunization Notes Care Provider [facility] 07-15-2024 influenza, high dose seasonal, preservative-free Jeanette Podlogar 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 Work Phone: [facility] 07-15-2024 influenza virus vaccine, unspecified formulation Girish Lemos MD Work Phone: [facility] 06-22-2023 influenza (HD-IIV4) vaccine, age 65+ yr, high dose, quadrivalent, PF (FLUZONE HIGH-DOSE) Jeanette Podlogar 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 Work Phone: [facility] 06-22-2023 influenza virus vaccine, unspecified formulation Girish Lemos MD Work Phone: [facility] 08-22-2022 influenza, high-dose , quadrivalent vaccine (FLUZONE HIGH DOSE QUADRIVALENT) Jeanette Podlogar 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 Work Phone: [facility] 08-22-2022 pneumococcal (PCV20) vaccine, 20 valent (PREVNAR 20) Jeanette Podlogar 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 Work Phone: [facility] 08-22-2022 pneumococcal Conjuga te, unspecified formulation Jeanette Podlogar 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 Work Phone: [facility] Work Phone: 11-24-2020 COVID-19 vaccine, fu ll dose (MODERNA) Girish Lemos MD Work Phone: [facility] 10-27-2020 COVID-19 vaccine, fu ll dose (MODERNA) Girish Lemos MD Work Phone: [facility] 07-17-2020 influenza, injectabl e, quadrivalent, preservative free [facility] 07-17-2020 influenza, seasonal, injectable Dr. Fabricio Lemos Work Phone: [facility] 07-17-2020 influenza, seasonal, injectable, preservative free Girish Lemos MD Work Phone: [facility] Work Phone: 04-09-2020 pneumococcal polysaccharide vaccine, 23 valent Girish Lemos MD Work Phone: [facility] 07-02-2019 influenza, injectabl e, quadrivalent, contains preservative Girish Lemos MD Work Phone: [facility] 07-02-2018 influenza, injectabl e, quadrivalent, contains preservative Girish Lemos MD Work Phone: [facility] 07-02-2018 tetanus and diphther ia toxoids, adsorbed, preservative free, for adult use (5 Lf of tetanus toxoid and 2 Lf of diphtheria toxoid) Girish Lemos MD Work Phone: [facility] 06-15-2017 influenza, injectabl e, quadrivalent, contains preservative Girish Lemos MD Work Phone: [facility] Work Phone: 07-24-2016 influenza, injectabl e, quadrivalent, contains preservative Girish Lemos MD Work Phone: [facility] Work Phone: 08-16-2015 influenza, seasonal, injectable Girish Lemos MD Work Phone: [facility] Work Phone: 06-17-2014 influenza, injectabl e, quadrivalent, preservative free Girish Lemos MD Work Phone: [facility] Work Phone: 05-18-2014 influenza, seasonal, injectable Girish Lemos MD Work Phone: [facility] Work Phone: 09-17-2012 influenza, seasonal, injectable Girish Lemos MD Work Phone: [facility] Work Phone: 09-17-2010 pneumococcal polysaccharide vaccine, 23 valent Girish Lemos MD Work Phone: [facility] Work Phone: 09-17-1992 tetanus and diphther ia toxoids, adsorbed, preservative free, for adult use (5 Lf of tetanus toxoid and 2 Lf of diphtheria toxoid) Girish Lemos MD Work Phone: [facility] Work Phone: Payers Date Payer Category Payer Unknown [id number] 2024 Self-pay [id number] 2022 Medicare (Managed Care) MMO MEDADVANTAGE O [id number] 2020 Medicare [id number] 2018 Medicare MMO MEDICARE MMO MEDADVANTAGE O [id number] 2018-Present [phone] [place] [id number] [facility] [id number]. [id number] 2018 Medicare [id number] [id number]. [id number] 2013 Unknown [id number] 1955 Unknown [id number] 2.16.840.1.336556.3.579.2. 903 1954 Unknown [id number] 2.16.840.1.160119.3.579.2. 903 1954 Unknown [id number] 2.16.840.1.793162.3.579.2. 903 1954 Unknown [id number] 2.16.840.1.499912.3.579.2. 651 1954 Unknown [id number] 2.16.840.1.326854.3.579.2. 651 1954 Unknown [id number] 2.16.840.1.583226.3.579.2. 651 Medicare [id number] Unknown [id number] 2.16.840.1.903470.3.579.2. 462 Unknown [id number] 2.16.840.1.523796.3.579.2. 462 Unknown [id number] 2.16.840.1.667004.3.579.2. 462 Unknown [id number] 2.16.840.1.146602.3.579.2. 462 Unknown [id number] 2.16.840.1.959986.3.579.2. 462 Unknown [id number] 2.16.840.1.565127.3.579.2. 462 Unknown [id number] 2.16.840.1.574131.3.579.2. 462 Unknown [id number] 2.840.1.154937.3.579.2. 462 Unknown [id number] 2.16840.1.891720.3.579.2. 462 Unknown [id number] 2.16.840.1.452810.3.579.2. 462 Unknown [id number] 2.840.1.701113.3.579.2. 462 Unknown [id number] 2.840.1.834236.3.579.2. 462 Unknown [id number] 2.840.1.351105.3.579.2. 462 Unknown [id number] 2.840.1.894943.3.579.2. 462 Unknown [id number] 2.840.1.613302.3.579.2. 462 Unknown [id number] 2.840.1.064388.3.579.2. 462 Unknown [id number] 2.840.1.238995.3.579.2. 462 Unknown [id number] 2.840.1.322095.3.579.2. 462 Unknown [id number] 2.840.1.298815.3.579.2. 462 Unknown [id number] 2.840.1.217502.3.579.2. 462 Unknown [id number] 2.840.1.893592.3.579.2. 462 Unknown [id number] 2.840.1.201325.3.579.2. 462 Unknown [id number] 2.840.1.498255.3.579.2. 462 Unknown [id number] 2.840.1.382052.3.579.2. 462 Unknown [id number] 2.840.1.429943.3.579.2. 462 Unknown [id number] 2.16.840.1.445109.3.579.2. 462 Unknown [id number] 2.16.840.1.868952.3.579.2. 462 Unknown [id number] 2.16.840.1.838531.3.579.2. 462 Unknown [id number] 2.16.840.1.827914.3.579.2. 462 Unknown [id number] 2.16.840.1.399817.3.579.2. 462 Unknown [id number] 2.16.840.1.643735.3.579.2. 462 Unknown [id number] 2.16.840.1.527696.3.579.2. 462 Unknown [id number] 2.16.840.1.978603.3.579.2. 462 Unknown [id number] 2.16.840.1.560163.3.579.2. 462 Unknown [id number] 2.16.840.1.790291.3.579.2. 462 Unknown [id number] 2.16.840.1.786933.3.579.2. 462 Unknown [id number] 2.16.840.1.257657.3.579.2. 462 Unknown [id number] 2.16.840.1.032318.3.579.2. 462 Unknown [id number] 2.16.840.1.872026.3.579.2. 462 Unknown [id number] 2.16.840.1.729338.3.579.2. 462 Unknown [id number] 2.16.840.1.026590.3.579.2. 462 Unknown [id number] 2.16.840.1.107516.3.579.2. 462 Unknown [id number] 2.16.840.1.313348.3.579.2. 462 Unknown [id number] 2.16.840.1.886467.3.579.2. 462 Unknown [id number] 2.16.840.1.797964.3.579.2. 462 Social History Date Type Detail Facility Start: 01-05-2022 End: 06-13-2023 Tobacco smoking status KSIS Unknown if ever smoked [facility] Start: 07-22-2020 None [facility] Start: 07-16-2020 Cigarettes [facility] Start: 1955 Sex Assigned At Female [facility] Start: 11-14-2017 End: 04-20-2025 Tobacco smoking status NHIS Ex-smoker [facility] Start: 08-14-1967 End: 08-14-2016 History of tobacco use Current smoker [facility] Start: 08-14-1967 End: 08-14-2016 History of tobacco use Cigarette Smoker [facility] Start: 11-14-2017 End: 01-24-2023 Cigarettes smoked current (pack per day) - Reported 1 [facility] Work Phone: Start: 11-14-2017 End: 07-15-2024 Tobacco use and exposure Smokeless tobacco non-user [facility] Start: 11-25-2021 End: 01-13-2025 Alcohol intake Current non-drinker of alcohol (finding) [facility] Start: 1955 Sex Assigned At Not on file [facility] Start: 10-16-2021 End: 03-23-2022 Exposure to SARS-CoV-2 (event) Not sure [facility] Start: 01-24-2023 End: 03-21-2023 Tobacco use panel [facility] Work Phone: National Score (1-100), lower number is lower risk 72 [facility] Work Phone: Start: 11-23-2024 End: 01-10-2025 Sex Female (finding) [facility] NEGATED: Highlighted row Not [facility] Medical Equipment Procedure Code Equipment Code Equipment Origin al Text Equipment Identifier Dates Insertion, vascular access port ([id number]) [id number] 60 [facility] Start: 12-12-2024 Goals Date Patient Goal Desired Activity /State Functional Status Date Assessment Result Facility 01-10-2025 Functional status Ambulates [facility] Work Phone: 11-15-2024 Functional status Ambulates;Up ad joselito [facility] Work Phone: Mental Status Date Assessment Result Facility 02-16-2025 Cognitive function Voice/Name [facility] Work Phone: 01-10-2025 Cognitive function Voice/Name [facility] Work Phone: 12-12-2024 Cognitive function Awake;Alert [facility] Work Phone: 12-12-2024 Cognitive function Voice/Name [facility] Work Phone: 11-24-2024 Cognitive function Voice/Name [facility] Work Phone: 11-23-2024 Cognitive function Awake;Alert;A ppropriate;Follow s Commands [facility] Work Phone: 11-15-2024 Cognitive function Voice/Name [facility] Work Phone: 09-13-2022 Cognitive function Level Of Cons ciousness Awake;Alert;Appropriate;Follow s Commands [facility] Work Phone: Clinical Notes 11-25-2021 to 04-28-2025 Note Date & Type Note Facility 04-28-2025 Progress note [facility] 04-28-2025 Progress note [facility] 04-28-2025 Progress note Note Date/Time April 28, 2025 12:31pm [facility] [address] [place], [place] [address] [address] OFFICE VISIT Date of Service: 04/28/25 1146 MR#: [id number] Acct: [id number] Name: ELIABETSY Marta Rep #: [id number] : 1955 From: Reg clark DO Age/Sex: 69/F Location: [facility] Status: Signed Intake Vital Signs 04/20/25 01:57 04/27/25 11:09 04/28/25 11:48 Height 5 ft 3 in 5 ft 3 in 5 ft 3 in Weight: 139 lb 6 oz BMI 24.7 BP 164/84 H Blood Pressure Location Rt brachial Position Sitting Respiration 16 Pulse 90 Pulse Source Monitor Temp 96.6 F L Temperature Source Temporal Artery Pulse Oximetry (%) 92 Oxygen Delivery Method room air Intake Visit Reasons: OTV Is patient in pain?: Yes (lower back) Pain scale (1-10): 8 Allergies MEAGAN Inhibitors Allergy (Verified 04/28/25 11:48) Rash codeine Allergy (Verified 04/28/25 11:48) Vomiting walnut Allergy (Verified 04/28/25 11:48) Food Allergy prednisone Adverse Reaction (Verified 04/28/25 11:48) Other Kfvfhoq-OVO-GnP Reductase Inhibitor (Afuvrft-Qau-Whv Reductase Inhibitor) Adverse Reaction (Verified 04/28/25 11:48) cramps Medications ?Medication ?Instructions ?Recorded ?Confirmed ?Type levothyroxine 25 mcg tablet 25 mcg PO DAILY thyroid 04/28/25 History Disability Placard #1 ea 09/15/20 04/28/25 Rx potassium citrate 10 mEq (1,080 20 meq PO DAILY potass ium 01/26/22 04/28/25 History mg) tablet,extended release albuterol sulfate 90 mcg/actuation 2 puff inhalation Q 4H PRN 06/13/23 04/28/25 History aerosol inhaler shortness of breath or wheez ing fluticasone propionate 50 1 spray intranasal DAILY PRN nasal 05/28/24 04/28/25 History mcg/actuation nasal congestion spray,suspension (Flonase Allergy Relief) losartan 25 mg tablet 25 mg PO DAILY blood pressur e 11/12/24 04/28/25 History ondansetron HCl 8 mg tablet 8 mg PO Q8H PRN nausea and vomiting 11/24/24 04/28/25 History docusate sodium 100 mg capsule 100 mg PO BID PRN const ipation 12/11/24 04/28/25 History omeprazole 40 mg capsule,delayed 40 mg PO BID gerd 04/28/25 History release lidocaine-prilocaine 2.5 %-2.5 % 1 applic topical ONCE PRN port 12/15/24 04/28/25 Rx topical cream access 30 days #30 grams prochlorperazine maleate 10 mg 10 mg PO Q6H PRN nausea and 12/15/24 04/28/25 Rx tablet vomiting #30 tabs mirtazapine 15 mg tablet 15 mg PO QHS sleep #30 tabs 12/29/24 04/28/25 Rx furosemide 20 mg tablet 20 mg PO DAILY PRN leg 01/1004/28/25 Rx swelling/SOB #30 tabs gabapentin 400 mg capsule 600 mg PO TID nerve pain 04/28/25 History morphine 15 mg immediate release 15 mg PO Q4-6H PRN pa in 04/13/25 04/28/25 History tablet morphine 30 mg tablet,extended 30 mg PO Q12H 04/20/25 04/28/25 History release Have you fallen in the past year?: No PFSH PFSH Medical History Hypercalcemia of malignancy Left leg weakness Anemia Cancer Difficulty swallowing Hypothyroidism GERD (gastroesophageal reflux [...] mcg PO DAILY thyroid 02/16/25 05:30 History Disability Placard #1 ea [...] QHS sleep #30 tabs 12/29/24 01/08/25 Rx furosemide 20 mg tablet 20 mg PO DAILY PRN leg 01/10 Unknown Rx swelling/SOB #30 tabs gabapentin 400 mg capsule 600 mg PO TID nerve pain Unknown History morphine 15 mg immediate release 15 mg PO Q4-6H PRN pa in 04/13/25 Unknown History tablet morphine 30 mg tablet,extended 30 mg PO Q12H 04/20/25 Unknown History release Allergy/AdvReac Type Severity Reaction Status Date / Time MEAGAN Inhibitors Allergy Rash Verified 04/28/25 11:48 codeine Allergy Vomiting Verified 04/28/25 11:48 walnut Allergy Food Verified 04/28/25 11:48 Allergy prednisone AdvReac Other Verified 04/28/25 11:48 Hhcuuyk-ZRB-ImO Reductase AdvReac cramps Verified 04/28/25 11:48 Inhibitor (Vqclbun-Qpp-Cmx Reductase Inhibitor) Family History Mother Cancer Hx Lung CA. Father Cancer Hx Lung CA. 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 Plan: Plan was made to treat with palliative radiation therapy consisting of 2000 centigrade delivered in 5 fractions to the L4 vertebral body through the lower sacrum. Treatment Data: Treatment Site: L4-Sacrum Current total dose/Total dose planned: 2000 cGy / 2000 cGy Fraction number: 5 Chemotherapy: none Subjective: Pain: 0 / 10 Fatigue: none Pain: 8/10, low back Diarrhea: increase to 1-3 per day, loose to watery Objective: Weight: 139 lbs Physical Exam: Gen: NAD Assessment & Plan Assessment/Plan (1) Metastasis to bone: PLAN: Plan Assessment: Tolerating treatment well overall.? I reviewed and approved all treatment associated imaging. Diarrhea: grade 1 Pain: severe, stable Plan: Continue treatment as planned.? I have reviewed potential treatment associated toxicities as well as timing for resolution and management. Follow up next week or sooner if needed. Thank you for allowing me to participate in the management and care of your patient. If I may answer any questions in the interim, please do not hesitate tocontact me at any time. Reg Layne DO, MS Water Engineer, Department of Radiation Oncology [facility] Coding Level of Care Code Radiation Tx Management x5 Diagnoses Metastasis to bone C79.51 04/28/25 1231 <Electronically signed by Reg Layne DO> Date _ Reg Layne DO Cosigner Signature: Date (if applicable) CC: ~ Bovey [employer] [facility] Work Phone: 1(698) 292-836608-12-2025 Progress note Author Reg Layne [facility] Services Note Date/Time April 28, 2025 12 :34pm [address] [address] OFFICE VISIT Date of Service: 04/28/25 1231 MR#: [id number] Acct: [id number] Name: BETSY RODRIGEZ Rep #: [id number] : 1955 From: Reg clark DO Age/Sex: 69/F Location: [facility] Status: Signed End of Treatment Summary: Diagnosis: Betsy Rodrigez is a 69 year-old female diagnosed with 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 Oncologic History: 10/31/2024: Patient completed CT chest with contrast.? This demonstrated left upper lobe perihilar mass with mediastinal and left hilar adenopathy. 11/11/2024: PET scan was performed.? This demonstrated hypermetabolic left upper lobe pulmonary nodule with FDG avid mediastinal and left hilar lymphadenopathy most compatible with primary lung cancer with regional lymph node involvement.? There are numerous axial and appendicular hypermetabolic osseous lesions compatible with metastatic disease. 11/12/2024: CT abdomen/pelvis with contrast was performed.? This demonstrated hepatomegaly with diffuse hepatic metastasis. 11/14/2024: Liver biopsy was completed.? This demonstrated metastatic high-grade neuroendocrine carcinoma. 11/25/2024: treated with Carboplatin/Etoposide/atezolizumab. 12/03/2024: MRI brain was performed.? This demonstrated a 1.3 cm enhancing lesionin the right parietal calvarium nonspecific but suspicious for possible osseous metastatic disease, recommend clinical/oncologic follow-up. 02/17/2025: CT chest/abdomen with contrast was performed.? This demonstrated interval decrease size of the left perihilar disease, similar-appearing diffuse hepatic metastatic disease.? Interval improvement of the previously mediastinal left hilar adenopathy.? No new concerning adenopathy.? New scattered osseous metastatic disease throughout the thoracolumbar spine, no fractures. 04/05/2025: Patient completed CT lumbar spine with contrast.? This demonstrated heterogeneous and sclerotic appearance of the lumbar spine bone marrow similar to prior in keeping with known osseous metastatic disease.? Indistinct appearance of the L4 spinous process may represent early destructive changes likely also possibly from metastatic disease.? Multilevel degenerative changes are noted. 04/06/2025: MRI lumbar spine with and without contrast was performed.? This demonstrated numerous osseous metastatic lesions throughout the lumbar spine andpelvis, probable thin enhancing dorsal epidural disease extension at the L4 level.? No substantial canal narrowing or other changes. Radiation Treatment History: None The patient completed a course of external beam radiotherapy in our department. This treatment was delivered for curative intent. Treatment was given according to the following parameters: BETSY RODRIGEZ received palliative radiation therapy consisting of 2000 cGy delivered in 5 fractions to the L4 vertebral body through the lower sacrum. Shewas treated with a 3D conformal treatment plan. The patient did not receive concurrent chemotherapy. Date of First Treatment: 04/22/2025 Date of Last Treatment: 04/28/2025 Total Elapsed Days (including weekend and holidays): 6 Missed Treatments: none Response and Tolerance: The patient tolerated this course of radiotherapy well overall. The following radiation related toxicities developed during the course of radiation therapy: * Grade 1 fatigue * Grade 1 diarrhea which was treated with imodium Total weight change during therapy: N/A Disposition: The patient tolerated the planned course of radiation therapy well without unexpected toxicity in an appropriate time course. I reviewed management of potential toxicities and discussed expected timing for toxicity resolution. I will have BETSY follow-up in one month for a routine visit. BETSY will maintain follow up with all other providers. BETSY was instructed to call with any further questions or concerns in the interim. If we can provide any further information on this patient's course of care, please do not hesitate to ask. We would like to thank you very much for allowingus to participate in the care of this patient. Sincerely, Reg Layne DO, MS Water Engineer, Department of Radiation Oncology [facility] 04/28/25 1236 <Electronically signed by Reg Layne DO> Date _ Reg Layne DO Cosigner Signature: Date (if applicable) CC: ~ Bovey [employer] Work Phone: 1(231) 569-247008-04-2025 Radiology Diagnostic study note [facility] Imaging Services [address] [place] [address] [id number] Abdomen/Pelvis W IV Cont ONLY MR#: [id number] Acct: [id number] Name: BETSY RODRIGEZ Rep #: [id number] : 1955 F 69 From: Vilma England MD PCP: Dr. Fabricio Lemos MD Status: PRE ER Study:Abdomen/Pelvis W IV Cont ONLY Date of E xam: 04/20/25 Exam# [id number] Ordering Dr: George Fajardo DO PROCEDURE: ABDOMEN/PELVIS W IV CONT ONLY 04/20/2025 REASON FOR EXAM: VOMITING, LOW BACK PAIN TECHNIQUE: ABDOMEN/PELVIS W IV CONT ONLY Coronal and Sagittal reconstruction series were provided. CONTRAST: Isovue 370 VOLUME: 99 mL One or more dose reduction techniques were used (e.g., Automated exposure control, adjustment of the mA and/or kV according to patient size, use of iterative reconstruction technique. RADIATION DOSE SUMMARY: CTDlvol: 25 mGy DLP: 955 mGycm COMPARISON: 02/17/2025 FINDINGS: Bibasilar scar/atelectasis. Normal heart size. Cirrhosis and extensive liver metastatic disease, similar to the previous examination. There are more than 30 liver lesions measuring up to about 3 cm. Status post cholecystectomy. Stable periportal adenopathy, nonspecific. Unremarkable pancreas, spleen, adrenal glands, kidneys. No hydronephrosis. Normal bladder. Normal uterus. Small ascites which is a new finding. No retroperitoneal or pelvic adenopathy. No free air. Nondistended bowel. No signs of appendicitis. No acute large bowel findings. Lumbar spine degeneration. Intervalimproved appearance to sclerotic osseous metastatic disease suggesting response to treatment. Intervaldevelopment of lyticbony metastatic disease, L4 spinous process and lamina, series 2 images 56/60, extraosseous extension. 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 This may be a cause of lowback pain. Extensive liver metastatic disease/treated metastases as seen previously. New small ascites. Reading Location: [place] [address] CC: Dr. Fabricio Lemos MD; Dr. George Fajardo DO ~ [employer] Operations Engineer: Signed [facility]07-30-2025 Telephone encounter Note* Telephone Encounter - Jeanette Li - 04/15/2025 9:28 AM EDT Patient has been identified by [...] found Please advise. Thank you. Jeanette Li. [facility]07-30-2025 Miscellaneous Notes* Telephone Encounter - Jeanette Li - 04/15/2025 9:28 AM EDT Patient has been identified by [...] Thank you. Jeanette Li. [facility] Radiology Diagnostic study note [facility] Imaging Services [address] [place] [address] [id number] Spine Lumbar WITH Contrast MR#: [id number] Acct: [id number] Name: BETSY RODRIGEZ Rep #: [id number] : 1955 F 69 From: Catherine Castaneda MD PCP: Dr. Fabricio Lemos MD Status: REG ER Study:Spine Lumbar WITH Contrast Date of Exam : 04/05/25 Exam# [id number] Ordering Dr: Kimberly Lynch DO PROCEDURE: SPINE [...] and pelvis 02/17/2025 FINDINGS: There are 5 gva-cud-mqdekqt lumbar-type vertebral bodies. Lumbar vertebral bodyheights and alignment are maintained. Heterogeneous sclerotic marrow throughout, most pronounced at L2, similar to CT on 02/17/2025. The L4 spinous process is slightly indistinct. Mild multilevel disc height loss, endplate osteophyte formation, and facet arthrosis. There is mildosseous neural foraminal narrowing bilaterally at L4-5 and L5-S1. No significant osseous spinal canal narrowing at any level. Numerous hypodensities throughout the liver, similar to prior. Aortic atherosclerosis with fusiformectasia measuring up to 2.3 cm, also unchanged. [...] canal narrowing at any level. Reading Location: [id number] CC: Dr. Fabricio Lemos MD; Dr. Juan Lynch, DO ~ [employer] Engineer: Signed [facility]07-15-2025 Telephone encounter Note* Telephone Encounter - Ney Mitchell LPN - 03/31/2025 1:48 PM EDT Rx on 01/13/25 was a med update. Rx pending. Please review and file. Ney Mitchell LPN [facility]07-15-2025 Miscellaneous Notes* Telephone Encounter - Ney Mitchell LPN - 03/31/2025 1:48 PM EDT Rx on 01/13/25 was a med update. Rx pending. Please review and file. Ney Mitchell LPN * Telephone Encounter - Lindsey Up - 03/31/2025 11:08 AM EDT Prescription is listed as being sent on 01-13-25, but there is no acknowledgement. * Telephone Encounter - Lindsey Up - 03/31/2025 11:08 AM EDT Prescription Refill Information The patient [...] 31, 2025 11:08 AM documented in this encounterM[facility] Telephone encounter Note * Telephone Encounter - Lindsey Up - 03/31/2025 11:08 AM EDT Prescription is listed as being sent on 01-13-25, but there is no acknowledgement. [facility]07-15-2025 Telephone encounter Note* Telephone Encounter - Lindsey Up - 03/31/2025 11:08 AM EDT Prescription Refill Information The patient [...] Lindsey Royal March 31, 2025 11:08 AM [facility]06-10-2025 Progress note Author Sherice Fernandez [facility] Services Note Date/Time February 24, 2025 9:40 am [facility] [place] [address] OFFICE VISIT Date of Service: 02/24/25 0909 MR#: [id number] Acct: [id number] Name: BETSY RODRIGEZ Rep #: [id number] : 1955 From: Sherice ramirez MD Age/Sex: 69/F Location: [facility] Status: Signed HPI Subjective Date of Service 02/24/25 Chief Complaint Metastatic lung cancer History of Present Illness 69-year-old female ex-smoker who presented with rapid progression of right upperquadrant pain, anorexia, and weight loss. October 31, 2024 CT scan of the chest ([facility]): Left upper lobe perihilar mass with mediastinal [...] prednisone Adverse Reaction (Verified 02/24/25 09:13) Other Tavnyyd-NGR-NxQ Reductase Inhibitor (Bhkpjfm-Kvw-Uyf Reductase Inhibitor) Adverse Reaction (Verified 02/24/25 09:13) [...] no focal motor deficits Coordination / Balance: pdglje-rc-kitw test normal Speech: speech normal Gait (Neuro): [...] impression and plan discussed. Sherice Fernandez MD Water Engineer, [facility] Divisions of Medical Oncology & Hematology Department of Internal Medicine [place] [address] This note was generated using a voice [...] delgadillo MD> Date _ Sherice Fernandez MD [facility] Signature: Date (if applicable) CC: ~ [employer] Work Phone: 1(542) 963-243106-06-[address] [facility]06-02-[address] [facility]05-28-2025 Telephone encounter Note* Telephone Encounter - Lance Royal Lindsey M - 02/11/2025 8:39 AM EDT Prescription Refill [...] Lindsey Royal February 11, 2025 8:40 AM [facility]05-28-2025 Miscellaneous Notes* Telephone Encounter - Lindsey Up [...] 11, 2025 8:40 AM documented in this encounterMarietta [facility]05-20-2025 [facility] [address] [place] [address] OFFICE VISIT Date of Service: 02/03/25 0856 MR#: [id number] Acct: [id number] Name: BETSY RODRIGEZ Marta Rep #: [id number] : 1955 From: Sherice ramirez MD Age/Sex: 69/F Location: [facility] Status: Signed HPI Subjective Date of Service 02/03/25 Chief Complaint Metastatic lung cancer History of Present Illness 69-year-old female ex-smoker who presented with rapid progression of right upperquadrant pain, anorexia, and weight loss. October 31, 2024 CT scan of the chest ([facility]): Left upper lobe perihilar mass with mediastinal [...] cardiac event was ruled out. No recurrence [facility] Medical History Hypothyroidism GERD (gastroesophageal reflux [...] prednisone Adverse Reaction (Verified 02/03/25 09:01) Other Ekkeyzb-QBO-QgO Reductase Inhibitor (Txurgfe-Bsc-Ncs Reductase Inhibitor) Adverse Reaction (Verified 02/03/25 09:01) [...] no focal motor deficits Coordination / Balance: kedhnc-ek-uxsv test normal Speech: speech normal Gait (Neuro): [...] impression and plan discussed. Sherice Fernandez MD Water Engineer, [facility] Divisions of Medical Oncology & Hematology Department of Internal Medicine [place] [phone] This note was generated using a voice [...] Cosigner Signature: Date (if applicable) CC: ~ [facility]05-20-2025 Progress note Author Sherice Fernandez [facility] Note Date/Time February 03, 2025 9:29a [facility] [address] [address] OFFICE VISIT Date of Service: 02/03/25 0856 MR#: [id number] Acct: [id number] Name: BETSY RODRIGEZ Rep #: [id number] : 1955 From: Sherice ramirez MD Age/Sex: 69/F Location: [facility] Status: Signed HPI Subjective Date of Service 02/03/25 Chief Complaint Metastatic lung cancer History of Present Illness 69-year-old female ex-smoker who presented with rapid progression of right upperquadrant pain, anorexia, and weight loss. 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 Sherice Fernandez MD Water Engineer, [facility] Divisions of Medical Oncology & Hematology Department of Internal Medicine [place] [address] This note was generated using a voice [...] Cosigner Signature: Date (if applicable) CC: ~ [employer] Work Phone: [phone] Telephone encounter Note* Telephone Encounter - Rosario Haddad LPN - 01/27/2025 12:28 PM EDT Phoned patient and reviewed results with her. She voiced understanding. Rosario Haddad LPN [facility]05-13-2025 Miscellaneous Notes* Telephone Encounter - Rosario Haddad [...] and call with worseningsymptoms. documented in this encounterMarietta [facility] Clinic05-13-2025 Telephone encounter Note * Telephone Encounter - Rosario Haddad LPN - 01/27/2025 12:27 PM EDT ----- Message from Girish Lemos MD sent at 01/27/2025 7:13 AM EDT ----- Negative for COVID/flu/RSV. Continue supportive care as discussed in office and call with worseningsymptoms. [facility]05-12-2025 Telephone encounter Note* Telephone Encounter - Rosario Haddad LPN - 01/26/2025 3:06 PM EDT Phoned patient and updated her with results. Patient voiced understanding. Rosario Haddad LPN [facility]05-12-2025 Miscellaneous Notes* Telephone Encounter - Rosario Haddad [...] Continue treatment as discussed. documented in this encounterMarietta [facility] Clinic05-12-2025 Telephone encounter Note * Telephone Encounter - Rosario Haddad LPN - 01/26/2025 3:05 PM EDT ----- Message from Girish Lemos MD sent at 01/26/2025 2:40 PM EDT ----- Patient's CXR is negative for pneumonia. Otherwise, stable xray. Continue treatment as discussed. [facility]05-12-2025 History of Present illness Narrative* Antonia Simms, RT(R) - 01/26/2025 1:50 PM EDT Radiology [...] PATIENT PRESENTS WITH AN IMPLANTABLE OR ATTACHED LUMBER INSPECTOR: No RADIOLOGY DEPARTMENT: General X-ray: Exam(s) Completed: Chest X-Ray PERIPHERAL IV DATA: Not applicable SIGNED BY: RT Dameon(Coy) January 26, 2025 1:47 PM documented in this encounterMarietta Osteopathic Clinic05-12-2025 NoteHNO ID: [id number] Author: ANTONIA SIMMS RT(R) Service: Radiology Author [...] PATIENT PRESENTS WITH AN IMPLANTABLE OR ATTACHED LUMBER INSPECTOR: No RADIOLOGY DEPARTMENT: General X-ray: Exam(s) Completed: Chest X-Ray PERIPHERAL IV DATA: Not applicable SIGNED BY: RT Dameon(Coy) January 26, 2025 1:47 [facility]05-12-2025 ZakkBXJB-SSV-2 (AGENT OF COVID-19) RNA: Not detected INFLUENZA A RNA: Not detected INFLUENZA B RNA: Not detected RESPIRATORY SYNCYTIAL VIRUS (RSV) RNA: Not detectedAvita Health SystemComment on above:Performed By: #### [id number] ####[facility] LABCLIA [id number] [facility] [place] [id number] [place] [id number] Instructions* Patient Instructions* Girish Lemos MD - 01/26/2025 1:38 PM EDT Take the prescribed Tessalon Perles as needed for your cough (the order was sent to [facility] in [place]). For additional cough relief, you may use dmxl-qau-tjknnlz cough drops or Delsym if desired. For your sore throat, try drinking tea with honey, gargling warm salt water, and using gcvt-zpg-ofubmzg chloraseptic sprays or lozenges. Drink plenty of [...] return for further evaluation. documented in this encounterMarietta [facility] Clinic05-12-2025 NoteHNO ID: [id number] Author: GIRISH LEMOS MD Service: ? Author Type: Physician Type: Progress Notes Filed: 01/26/2025 13:43 Note Text: Chief Complaint Patient presents with: Cough: Non-productive Throat Problem: Hoarse and sore sinus congestion with occasional green mucus Perspiration Recording using [employer] software for draft documentation of the visit was discussed with the patient/authorized medical 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 Patient/authorized medical sales representative agreed to proceed HPI Betsy [...] III (moderate) (HCC) Colon polyp tubular adenoma [address] 07/16 to 08/17 DDD (degenerative disc [...] Known Problems Brother Stroke Maternal Grandmother or [place], patient unsure Coronary Artery Disease Maternal Grandfather Alcohol abuse Paternal Grandfather Patient Allergies ALLERGIES Allergen Reactions Meagan Inhibitors Rash Codeine Vomiting, Other: See Comments Headache Remeron [Mirtazapin* Other: See Comments Fatigue Sexzslu-Phq-Vew Red* Myalgia Buckner Unknown Zetia [Ezetimibe] Myalgia Current Medications Current [...] hours as needed for pain. mv,jaci,iron,mn/folic acid/chol (AXFB-GGIP-BBEJR, PABA, ORAL) Take 1 tablet by mouth [...] day. No current facility-administe (more content not included)...[facility]05-12-[facility] History of Present illness Narrative* Girish Lemos MD - 01/26/2025 1:06 PM EDT Chief Complaint Patient presents with: Cough: Non-productive Throat Problem: Hoarse and sore sinus congestion with occasional green mucus Perspiration Recording using [employer] software for draft documentation of the visit was discussed with the patient/authorized medical 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 Patient/authorized medical sales representative agreed to proceed HPI Betsy [...] III (moderate) (HCC) Colon polyp tubular adenoma [address] 07/16 to 08/17 DDD (degenerative disc [...] Known Problems Brother Stroke Maternal Grandmother or [place], patient unsure Coronary Artery Disease Maternal Grandfather Alcohol abuse Paternal Grandfather Patient Allergies ALLERGIES Allergen Reactions Meagan Inhibitors Rash Codeine Vomiting, Other: See Comments Headache Remeron [Mirtazapin* Other: See Comments Fatigue Nvzhnjb-Onn-Rqe Red* Myalgia Buckner Unknown Zetia [Ezetimibe] Myalgia Current Medications Current [...] hours as needed for pain. mv,jaci,iron,mn/folic acid/chol (TMIE-FXAA-ARMUH, PABA, ORAL) Take 1 tablet by mouth [...] Perles for cough management; advised use of thvp-gcu-ndodhma cough drops or Delsym. - Recommended tea with honey, warm salt water gargles, and oyqm-kim-xauiqev Chloraseptic sprays or lozenges for sore throat. [...] recovery from current illness. documented in this encounterMarietta [facility] Clinic04-29-2025 NoteHNO ID: [id number] Author: GIRISH LEMOS MD Service: ? Author Type: Physician Type: Progress Notes Filed: 01/13/2025 10:35 Note Text: Chief Complaint Patient presents with: Hospital F/U HPI Betsy Rodrigez is a 69 year old female who presents here today for Hospital discharge follow up. Patient admitted to [facility] from 01/09 to 01/10 for complaint [...] III (moderate) (HCC) Colon polyp tubular adenoma [address] 07/16 to 08/17 DDD (degenerative disc [...] Known Problems Brother Stroke Maternal Grandmother or [place], patient unsure Coronary Artery Disease Maternal Grandfather Alcohol abuse Paternal Grandfather Patient Allergies ALLERGIES Allergen Reactions Meagan Inhibitors Rash Codeine Vomiting, Other: See Comments Headache Remeron [Mirtazapin* Other: See Comments Fatigue Lvbqylh-Wdm-Qkn Red* Myalgia Buckner Unknown Zetia [Ezetimibe] Myalgia Current Medications Current [...] hours as needed for pain. mv,jaci,iron,mn/folic acid/chol (NSPV-KETS-FSTYD, PABA, ORAL) Take 1 tablet by mouth once daily. (Patient not taking: Reported on 08/22/2022) Minoxidil 2 % external solution Apply 1 mL to affected area twice daily. albuterol (PROVENTIL) 2.5 (more content not included)...[facility]04-29-2025 History of Present illness Narrative* Girish Lemos MD - 01/13/2025 9:08 AM EDT Chief Complaint Patient presents with: [facility] F/U [facility] Betsy Rodrigez is a 69 year old female who presents here today for Hospital discharge follow up. Patient admitted to [facility] from 01/09 to 01/10 for complaint [...] 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 Johnosn Dysphagia Dr. 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) Obesity (BMI 30.0-34.9) Other pulmonary embolism without acute cor pulmonale (HCC) Pneumonia due to [facility]- virus Requiring intubation Small cell lung [...] Known Problems Brother Stroke Maternal Grandmother or [place], patient unsure Coronary Artery Disease Maternal Grandfather Alcohol abuse Paternal Grandfather Patient Allergies ALLERGIES Allergen Reactions Meagan Inhibitors Rash Codeine Vomiting, Other: See Comments Headache Remeron [Mirtazapin* Other: See Comments Fatigue Hviqjwi-Yyc-Ieb Red* Myalgia Buckner Unknown Zetia [Ezetimibe] Myalgia Current Medications Current [...] hours as needed for pain. mv,jaci,iron,mn/folic acid/chol (DERA-CSFX-HKFOR, PABA, ORAL) Take 1 tablet by mouth [...] which included preparing to see the patient, tbwk-nm-yzfq patient care, completing clinical documentation, obtaining and/or reviewing separately obtained history, performing a medically appropriate examination, counseling and educating the pat ient/family/caregiver, and ordering medications, tests, or procedures. Girish Lemos MD documented in this encounterMarietta [facility] Clinic04-26-2025 Discharge summary [facility] Medical Records Department [address] [place] [address] Discharge Summary 01/10/25 1428 MR#: [id number] Acct: [id number] Name: BETSY RODRIGEZ Rep #:[id number] : 1955 69 From: Jassi Schneider PCP: Dr. Fabricio Lemos MD Status :ADM FARIBA Location: [place] [address] Providers Date of Admission: 01/09/25 Date of [...] 01/10/25 14:09 RMA (Rec: 01/10/25 14:09 RMA [id number]) Nutrition Malnutrition Evidence of Yes Malnutrition Exists [...] 93.2 H, Lymph % (Auto) 4.7 L, Hand % (Auto) 0.2, Eos % (Auto) 0.0, [...] relate to congestion and edema. Reading Location: [facility] Echocardiogram 01/09/25 20:22 Interpretation Summary The LV systolic function is normal. EF is 65 %. The global longitudinal strain = -24.6 % (normal). Ordering Physician: Estrella Cabezas Referring Physician: Estrella Cabezas Performed By: Sesar Ferrera [facility] D/C Instructions Discharge Diet: No restrictions Weight [...] Self Care Charges/Coding Visit Charges Inpatient E&M: 88728 Disch Hosp >30min 01/10/25 1439 Cosigner Signature (if applicable): CC: Dr. Fabricio Lemos MD; Dr. Jassi Borden MD~ Signed [facility]04-26-2025 Discharge summary [facility] Medical Records Department [address] [place] [address] Instructions for Home/Discharge Instructions 01/10/25 1425 MR#: [id number] Acct: [id number] Name: BETSY RODRIGEZ Rep #:[id number] : [...] MD; Dr. Estrella Cabezas MD ~ Signed [facility]04-26-20[facility] Discharge summary Author Austin Mack [facility] Note Date/Time January 09, 2025 11: 20pm [facility] Medical Records Department [address] [place] [address] Emergency Department Summary 01/09/25 MR#: [id number] Acct: [id number] Name: BETSY RODRIGEZ Rep #:[id number] : 1955 69 From: Austin Mack MD PCP: Dr. Fabricio Lemos MD Status :ADM FARIBA Location: [address] History of Present Illness Chief Complaint: [...] reaction to her white blood cell booster. [facility] Medical History Hypothyroidism GERD (gastroesophageal reflux [...] Allergy prednisone AdvReac Other Verified 01/09/25 15:36 Snsdjly-YXV-DdZ Reductase AdvReac cramps Verified 01/09/25 15:36 Inhibitor (Ekzyjgs-Fec-Zuw Reductase Inhibitor) Family History Mother Cancer Hx [...] 93.2 H Lymph % (Auto) 4.7 L Hand % (Auto) 0.2 Eos % (Auto) 0.0 [...] to congestion and edema. Reading Location: [facility] Discharge Plan Dx/Rx/DC Orders Clinical Impression: Chest pain, Shortness of breath, Small cell lung cancer, Elevated troponin Disposition Disposition: Acute Care Hospital [facility] Discharge Date/Time: 01/09/25 20:00 What to do if you have Problems For any increased pain, shortness of breath, bleeding, nausea or vomiting, chestpain, or any unexpected problems, contact your Primary Care Provider. Call [facility] ([phone]) or report to the closest Emergency Room. Call 911 if necessary. 01/09/252319 <Electronically signed by Austin Mack MD> Cosigner Signature (if applicable): CC: Dr. Fabricio Lemos MD ~ Signed [facility] Work Phone: [phone] Discharge summary [facility] Medical Records Department [address] [place] [address] Emergency Department Summary 01/09/25 MR#: [id number] Acct: [id number] Name: BETSY RODRIGEZ Rep #:[id number] : 1955 69 From: Austin Mack MD PCP: Dr. Fabricio Lemos MD Status :ADM FARIBA Location: [place] [address] HPI History of Present Illness Chief Complaint: [...] reaction to her white blood cell booster. [facility] Medical History Hypothyroidism GERD (gastroesophageal reflux [...] Allergy prednisone AdvReac Other Verified 01/09/25 15:36 Zwankvk-YJA-QyU Reductase AdvReac cramps Verified 01/09/25 15:36 Inhibitor (Nbguauk-Dst-Pez Reductase Inhibitor) Family History Mother Cancer Hx [...] 93.2 H Lymph % (Auto) 4.7 L Hand % (Auto) 0.2 Eos % (Auto) 0.0 [...] relate to congestion and edema. Reading Location: [facility] Discharge Plan Dx/Rx/DC Orders Clinical Impression: Chest pain, Shortness of breath, Small cell lung cancer, Elevated troponin Disposition Disposition: Acute Care Hospital [facility] Discharge Date/Time: 01/09/25 20:00 What to do if you have Problems For any increased pain, shortness of breath, bleeding, nausea or vomiting, chestpain, or any unexpected problems, contact your Primary Care Provider. Call [facility] ([phone]) or report tothe closest Emergency Room. Call 911 if necessary. 01/09/252319 Cosigner Signature (if applicable): CC: Dr. Fabricio Lemos MD ~ Signed [facility]04-25-2025 Progress note Author Estrella Cabezas [facility] Note Date/Time January 09, 2025 8:1 7pm [facility] Medical Records Department [address] [place] [address] Progress Note - Hospitalist 01/09/252015 MR#: [id number] Acct: [id number] Name: BETSY RODRIGEZ Rep #:[id number] : 1955 69 From: Estrella Cabezas MD PCP: Dr. Fabricio Lemos MD Status :ADM FARIBA Location: [place] [address] Hospitalist Note BNP elevated, will give dose of Lasix 01/09/252016 <Electronically signed by Estrella Cabezas MD> Cosigner Signature (if applicable): CC: ~ Signed [facility] Work Phone: 1(464) 211-566504-25-2025 History and physical note Author Estrella Cabezas [facility] Note Date/Time January 09, 2025 8:0 5pm [facility] Medical Records Department [address] [place] [address] H&P Exam - Hospitalist 01/09/251930 MR#: [id number] Acct: [id number] Name: BETSY RODRIGEZ Rep #:[id number] : 1955 69 From: Estrella Cabezas MD PCP: Dr. 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 [facility] Medical History (Updated 01/09/25 @ 19:35 [...] Allergy prednisone AdvReac Other Verified 01/09/25 15:36 Gihswoz-KQA-NhJ Reductase AdvReac cramps Verified 01/09/25 15:36 Inhibitor (Julwshn-Jzo-Wpi Reductase Inhibitor) Family History Mother Cancer Hx [...] 93.2 H, Lymph % (Auto) 4.7 L, Hand % (Auto) 0.2, Eos % (Auto) 0.0, [...] relate to congestion and edema. Reading Location: [facility] Assessment & Plan Assessment/Plan (1) Chest pain: [...] Cabezas MD Charges/Coding Visit Charges Inpatient E&M: 03545 Init Hosp L2 01/09/252004 <Electronically signed by Estrella Cabezas MD> Cosigner Signature (if applicable): CC: Dr. Fabricio Lemos MD; Dr. Estrella Cabezas MD~ Signed [facility] Work Phone: 1(918) 194-992704-25-2025 Progress note [facility] Medical Records Department [address] [place] [address] Progress Note - Hospitalist 01/09/252015 MR#: [id number] Acct: [id number] Name: BETSY RODRIGEZ Rep #:[id number] : 1955 69 From: Estrella Cabezas MD PCP: Dr. Fabricio Lemos MD Status :ADM FARIBA Location: [place] [address] Hospitalist Note BNP elevated, will give dose of Lasix 01/09/252016 Cosigner Signature (if applicable): CC: ~ Signed [facility]04-25-2025 History and physical note [facility] Medical Records Department [address] [place] [address] H&P Exam - Hospitalist 01/09/251930 MR#: [id number] Acct: [id number] Name: BETSY RODRIGEZ Rep #:[id number] : 1955 69 From: Estrella Cabezas MD PCP: Dr. 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 [facility] Medical History (Updated 01/09/25 @ 19:35 [...] Allergy prednisone AdvReac Other Verified 01/09/25 15:36 Hmecapk-JNQ-IeF Reductase AdvReac cramps Verified 01/09/25 15:36 Inhibitor (Ekheyvk-Vpn-Znr Reductase Inhibitor) Family History Mother Cancer Hx [...] 93.2 H, Lymph % (Auto) 4.7 L, Hand % (Auto) 0.2, Eos % (Auto) 0.0, [...] relate to congestion and edema. Reading Location: [facility] Assessment & Plan Assessment/Plan (1) Chest pain: [...] Cabezas MD Charges/Coding Visit Charges Inpatient E&M: 05506 Init Hosp L2 01/09/252004 Cosigner Signature (if applicable): CC: Dr. Fabricio Lemos MD; Dr. Estrella Cabezas MD~ Signed [facility]04-25-2025 Radiology Diagnostic study note [facility] Imaging Services [address], [place] [id number] Chest 1 View (Portable) MR#: [id number] Acct: [id number] Name: BETSY RODRIGEZ Rep #: [id number] : 1955 F 69 From: Tasha Fajardo MD PCP: Dr. Fabricio Lemos MD Status: REG ER Study:Chest 1 View (Portable) Date of Exam: 01/09/25 Exam# [id number] Ordering Dr: Austin Mack MD EXAM: XR [...] relate to congestion and edema. Reading Location: [facility] CC: Dr. Austin Mack MD; Dr. 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 April 27, 2 025 9:46am Hypercalcemia of malignancy chronic April 27, 2025 9:46am 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 April 27, 2025 9:46am 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 Augus t 2024 9:46am 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 April 27 9:46am 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 April 28, 2025 10:48am 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 April 29, 2 025 9:00am Hypercalcemia of malignancy chronic April 29, 2025 9:00am 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 April 29, 2025 9:00am 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 Augus t 2024 9:00am 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 April 29 9:00am [employer] [facility] Work Phone: 1(508) 185-761204-14-2025 Evaluation note* Diagnosis Onset Date Resolution Status [...] is present chronic April 06, 2025 9:34am 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 March 182024 10:51am 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 April 27, 2 025 9:46am Hypercalcemia of malignancy chronic April 27, 2025 9:46am 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 April 27, 2025 9:46am 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 Augus t 2024 9:46am 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 April 27 9:46am [facility] Work Phone: 1(135) 713-571204-14-2025 Evaluation note* Diagnosis Onset Date Resolution Status [...] is present chronic April 06, 2025 9:34am 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 March 182024 10:51am 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 April 27, 2 025 9:46am Hypercalcemia of malignancy chronic April 27, 2025 9:46am 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 April 27, 2025 9:46am 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 Augus 2024 9:46am 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 April 27 9:46am 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 April 28, 2025 10:48am [facility] Work Phone: 1(679) 164-619004-07-2025 Evaluation note* Diagnosis Onset Date Resolution Status Admit Date Port-A-Cath in place acute Apri l 2024 [...] is present chronic April 06, 2025 9:34am 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 March 182024 10:51am [facility] Work Phone: 1(727) 169-159204-01-2025 Evaluation note* Diagnosis Onset Date Resolution Status [...] is present chronic April 06, 2025 9:34am [facility] Work Phone: 1(825) 629-925503-31-2025 Telephone encounter Note* Telephone Encounter - Marta [...] Meadows RN December 15, 2024 9:14 AM [facility]03-31-2025 Miscellaneous Notes* Telephone Encounter - Marta Meadows [...] 15, 2024 9:14 AM [facility] Consult note Author Lennox Schaefer [facility] Note Date/Time December 12, 2024 12: 33pm [facility] Medical Records Department [address] [place] [address] Anesthesia Postop Eval II 12/12/24 1233 MR#: [id number] Acct: [id number] Name: BETSY RODRIGEZ Rep #:[id number] : 1955 69 From: Lennox Schaefer MD PCP: Dr. Fabricio Lemos MD Status :REG MSC Y Race: C Location: [address] Anesthesia Postop Eval I Sum Postop Eval Completion status Anesthesia document: Postop Eval 1 completed: Yes Anesthesia Postop Eval I Summary Anesthesia Postop Eval I Summary: Anesthesia Postop Eval I: Assessment Summary Airway patent Yes 12/12/24 12:31 INSTRUMENTATION INSTRUCTOR.TMEN Spontaneous unlabored No 12/12/24 12:31 INSTRUMENTATION INSTRUCTOR.TMEN respirations Mental status nausea No 12/12/24 12:31 INSTRUMENTATION INSTRUCTOR.TMEN Vomiting No 12/12/24 12:31 INSTRUMENTATION INSTRUCTOR.TMEN Anesthesia Postop Eval I: Fluid Summary Crystalloid volume administer 500 12/12/24 12:31 INSTRUMENTATION INSTRUCTOR.TMEN (ml) Colloids volume administered ( ml) Blood Product volume administered (ml) Total IV fluid infused 500 12/12/24 12:31 INSTRUMENTATION INSTRUCTOR.TMEN Anesthesia Postop Eval I: Summary Notes Anesthesia Complication No 12/12/24 12:31 INSTRUMENTATION INSTRUCTOR.TMEN Anesthesia Complication Comment: Post-operative progress note Anesthesia: Postop Eval II Evaluation Mental status: Awake Pain Level: 0 nausea: No Vomiting: No 12/12/24 1233 <Electronically signed by Lennox Schaefer MD > Date _ Lennox Schaefer MD Cosigner Signature: Date CC: ~ Signed [facility] Work Phone: 1(217) 998-480203-28-2025 Consult note Author Nohemi Andres [facility] Note Date/Time December 12, 2024 12: 31pm [facility] Medical Records Department [address] [place] [address] Anesthesia Postop Eval I 12/12/24 1230 MR#: [id number] Acct: [id number] Name: BETSY RODRIGEZ Rep #:[id number] : 1955 69 From: Nohemi khan CRNA PCP: Dr. aFbricio Lemos MD Status :REG [facility] Y Race: C Location: [place] [address] Anesthesia: Postop Eval I Current Vital Signs [...] CRNA Cosigner Signature: Date CC: ~ Signed [facility] Work Phone: [phone] Discharge summary Author Yeimi Sorto [facility] Note Date/Time December 12, 2024 12: 24pm [facility] Medical Records Department [address] [place] [address] Instructions for Home/Discharge Instructions 12/12/24 1222 MR#: [id number] Acct: [id number] Name: ELIABETSY M Rep #:[id number] : 1955 69 From: Yeimi Sorto MD PCP: Dr. Fabricio Lemos MD Status :REG [facility] Discharge Instructions Procedure Port-A-Cath [...] Care Provider: Fabricio Lemos Instructions Print Language: Syriac Discharge Orders/Prescriptions Prescriptions: Continued (DME) Disability Placard [...] CC: Dr. Fabricio Lemos MD ~ Signed [facility] Work Phone: 1([phone]) 951-911503-28-2025 History and physical note Author Yeimi [facility] Note Date/Time December 12, 2024 11: 40[facility] Medical Records Department [address] [place] [address] History & Physical Exam 12/12/24 1138 MR#: [id number] Acct: [id number] Name: BETSY RODRIGEZ Rep #:[id number] : 1955 69 From: Yeimi Sorto MD PCP: Dr. Fabricio Lemos MD Status :[facility] Location: [place] [address] History and Physical Date of Admission: 12/12/24 Date of Service: 12/10/24 MR#: [id number] Acct: [id number] Name: BETSY RODRIGEZ Rep #: [id number] : 1955 Provider: Dr. Yeimi Sorto MD Age/Sex: 69/F Location: [facility] Status: Signed Intake Vital Signs 12/09/2509:45 12/09/2510:48 [...] Food Allergyprednisone Adverse Reaction (Verified 12/11/24 08:17) RbacbQjzpdzi-JXJ-NaA Reductase Inhibitor (Erkshzk-Gyf-Mmf Reductase Inhibitor) Adverse Reaction (Verified 12/11/24 08:17) [...] no further questions. Yeimi Sorto M.D. Pager: [phone] [facility] [address] [place] [address], [facility], [address] [place] [address] Office: [phone] Coding Level of Care Code Off vis,new,level [...] MD; Dr. Yeimi Sorto MD ~* Signed [facility] Work Phone: 1(812) 113-883303-28-2025 Consult note Author Lennox monika [facility] Note Date/Time December 12, 2024 11: 14am [facility] Medical Records Department [address] [place] [address] Pre-Anesthesia Evaluation 12/12/24 1113 MR#: [id number] Acct: [id number] Name: BETSY RODRIGEZ Marta Rep #:[id number] : 1955 69 From: Lennox Schaefer MD PCP: Dr. 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 Hx Respiratory Tract Infection No 12/11/24 08:45 STOP Sleep Apnea STOP Sleep Apnea - 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: STOP Sleep Apnea - 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 Hx Hypertension Yes: MED 12/11/24 08:45 Hx [...] Tobacco Use History Tobacco Use 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: Tobacco Use 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 Tobacco Use Smoking Status Former smoker 12/11/24 08:45 Hx Tobacco Use No 12/11/24 08:45 Years Smoking Packs Smoked per Day Smoking Cessation Date was Yes - quit smoking within 15 12/11/24 08:45 within the last 15 years years Hx Smoking Cessation Date 09/17/15 12/11/24 08:45 Hx Smoking Cessation No 12/11/24 08:45 Counseling Hematologic Medial History 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 Hx of Blood Transfusion No 12/11/24 08:45 [...] confused, unrespo /Reproduction History /Reproductive 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: /Reproductive Hx- 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 Hx Now No 12/11/24 08:45 Gestational Age [...] Allergy prednisone AdvReac Other Verified 12/12/24 10:47 Qutlfcn-NZT-LoN Reductase AdvReac cramps Verified 12/12/24 10:47 Inhibitor (Tqmjwti-Lpd-Hxy Reductase Inhibitor) Family History Mother Cancer Hx [...] MD Cosigner Signature: Date CC: ~ Signed [facility] Work Phone: [phone]) 135-193003-28-2025 Radiology Diagnostic study note [facility] Imaging Services [address] [place] [address] Chest 1 View (Portable) MR#: [id number] Acct: [id number] Name: BETSY RODRIGEZ Rep #: [id number] : 1955 F 69 From: Tasha Fajardo MD PCP: Dr. Fabricio Lemos MD Status: REG [facility] Study:Chest 1 View (Portable) Date of Exam: 12/12/24 Exam# [id number] Ordering Dr: Yeimi Sorto MD EXAM: XR [...] edema. Pneumonia cannot be excluded. Reading Location: [facility] CC: Dr. Fabricio Lemos MD; Dr. 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 Fabricio Lemos MD Status :REG [facility] Location: [place] [address] Operative Report (Standard) Operative Information Date of Procedure: 12/12/24 Pre-Operative Diagnosis: z45.2, lung cancer Post-Operative Diagnosis: Same Surgery/Procedure Performed: 1. Placement of right IJ Port-A-Cath 2. Use of fluoroscopy 3. Use of ultrasound recep: No Type of Anesthesia: MAC/Supplemental RN Documented [...] details: Bard PowerPort isp M.R.I. 6Fr Lot [id number] Special Medications: Ancef 2 g IV x [...] Lemos MD; Dr. Yeimi Sorto MD~ Signed [facility]03-28-2025 Consult note [facility] Medical Records Department [address] [place] [address] Anesthesia Postop Eval II 12/12/24 1233 MR#: [id number] Acct: [id number] Name: BETSY RODRIGEZ Rep #:[id number] : 1955 69 From: Lennox Schaefer MD PCP: Dr. Fabricio Lemos MD Status :REG [facility] Y Race: C Location: [place] [address] Anesthesia Postop Eval I Sum Postop Eval Completion status Anesthesia document: Postop Eval 1 completed: Yes Anesthesia Postop Eval I Summary Anesthesia Postop Eval I Summary: Anesthesia Postop Eval I: Assessment Summary Airway patent Yes 12/12/24 12:31 INSTRUMENTATION INSTRUCTOR.TMEN Spontaneous unlabored No 12/12/24 12:31 INSTRUMENTATION INSTRUCTOR.TMEN respirations Mental status nausea No 12/12/24 12:31 INSTRUMENTATION INSTRUCTOR.TMEN Vomiting No 12/12/24 12:31 INSTRUMENTATION INSTRUCTOR.TMEN Anesthesia Postop Eval I: Fluid Summary Crystalloid volume administer 500 12/12/24 12:31 INSTRUMENTATION INSTRUCTOR.TMEN (ml) Colloids volume administered ( ml) Blood Product volume administered (ml) Total IV fluid infused 500 12/12/24 12:31 INSTRUMENTATION INSTRUCTOR.TMEN Anesthesia Postop Eval I: Summary Notes Anesthesia Complication No 12/12/24 12:31 INSTRUMENTATION INSTRUCTOR.TMEN Anesthesia Complication Comment: Post-operative progress note Anesthesia: Postop Eval II Evaluation Mental status: Awake Pain Level: 0 nausea: No Vomiting: No 12/12/24 1233 > Date _ Lennox Schaefer MD Cosigner Signature: CC: ~ Signed [facility]03-28-2025 Consult note [facility] Medical Records Department [address] [place] [address] Anesthesia Postop Eval I 12/12/24 1230 MR#: [id number] Acct: [id number] Name: BETSY RODRIGEZ Rep #:[id number] : 1955 69 From: Nohemi khan INSTRUMENTATION INSTRUCTOR PCP: Dr. Fabricio Lemos MD Status :[facility] Y Race: C Location: [place] [address] Anesthesia: Postop Eval I Current Vital Signs Temperature: 99.0 F Pulse Rate: 82 Blood Pressure: 109/58 Respiratory Rate: 20 Pulse Ox: 91 Assessment Airway patent: Yes Spontaneous unlabored respirations: No nausea: No Vomiting: No Anesthesia Complication: No Fluid Hydration Crystalloid volume administer (ml): 500 Total IV fluid infused: 500 Progress Note Anesthesia document: Postop Eval 1 completed: Yes 12/12/24 1231 meagan INSTRUMENTATION INSTRUCTOR> Date _ Nohemi Andres INSTRUMENTATION INSTRUCTOR Cosigner Signature: Date CC: ~ Signed [facility]03-28-2025 Discharge summary [facility] Medical Records Department [address] [place] [address] Instructions for Home/Discharge Instructions 12/12/24 1222 MR#: [id number] Acct: [id number] Name: BETSY RODRIGEZ Rep #:[id number] : 1955 69 From: Yeimi Sorto MD PCP: Dr. Fabricio Lemos MD Status :REG SDC Discharge Instructions Procedure Port-A-Cath Diet Discharge Diet: [...] Care Provider: Fabricio Lemos Instructions Print Language: Syriac Discharge Orders/Prescriptions Prescriptions: Continued (DME) Disability Placard [...] CC: Dr. Fabricio Lemos MD ~ Signed [facility]03-28-2025 History and physical note [facility] Medical Records Department [address] [place] [address] History & Physical Exam 12/12/24 1138 MR#: [id number] Acct: [id number] Name: BETSY RODRIGEZ Rep #:[id number] : 1955 69 From: Yeimi Sorto MD PCP: Dr. Fabricio Lemos MD Status :[facility] Location: [place] [address] History and Physical Date of Admission: 12/12/24 Date of Service: 12/10/24 MR#: [id number] Acct: [id number] Name: BETSY RODRIGEZ Rep #: [id number] : 1955 Provider: Dr. Yeimi Sorto MD Age/Sex: 69/F Location: [facility] Status: Signed Intake Vital Signs 12/09/2509:45 12/09/2510:48 [...] Food Allergyprednisone Adverse Reaction (Verified 12/11/24 08:17) TwucjCbigvcg-EDO-McK Reductase Inhibitor (Hiwwuon-Ito-Zem Reductase Inhibitor) Adverse Reaction (Verified 12/11/24 08:17) [...] no further questions. Yeimi Sorto M.D. Pager: [phone] [facility] [address] [place] [address], [facility], [address] [place] [id number] Office: 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 Yeimi Sorto MD ~* Signed [facility]28[facility] Consult note [facility] Medical Records Department [address] [place] [address] Pre-Anesthesia Evaluation 12/12/24 1113 MR#: [id number] Acct: [id number] Name: BETSY RODRIGEZ Rep #:[id number] : 1955 69 From: Lennox Schaefer MD PCP: Dr. 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 Hx Respiratory Tract Infection No 12/11/24 08:45 STOP Sleep Apnea STOP Sleep Apnea - 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: STOP Sleep Apnea - 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 Hx Hypertension Yes: MED 12/11/24 08:45 Hx [...] Tobacco Use History Tobacco Use 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: Tobacco Use 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 Tobacco Use Smoking Status Former smoker 12/11/24 08:45 Hx Tobacco Use No 12/11/24 08:45 Years Smoking Packs Smoked per Day Smoking Cessation Date was Yes - quit smoking within 15 12/11/24 08:45 within the last 15 years years Hx Smoking Cessation Date 09/17/15 12/11/24 08:45 Hx Smoking Cessation No 12/11/24 08:45 Counseling Hematologic Medial History 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 Hx of Blood Transfusion No 12/11/24 08:45 [...] confused, unrespo /Reproduction History /Reproductive 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: /Reproductive Hx- 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 Hx Now No 12/11/24 08:45 Gestational Age [...] Allergy prednisone AdvReac Other Verified 12/12/24 10:47 Mbfssqd-MNF-SbG Reductase AdvReac cramps Verified 12/12/24 10:47 Inhibitor (Hbouobz-Erl-Nwj Reductase Inhibitor) Family History Mother Cancer Hx [...] MD Cosigner Signature: Date CC: ~ Signed [facility]03-25-2025 Evaluation note* Diagnosis Onset Date Resolution Status Admit Date Bilateral lower extremity edema acut e December 09, 2024 9:51am Small cell lung cancer acute [facility] 2024 9:51am 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 [...] is present chronic March 16, 2025 7:48am [facility] Work Phone: 1(822) 950-942403-25-2025 Evaluation note* Diagnosis Onset Date Resolution Status Admit Date Bilateral lower extremity edema acut e December 09, 2024 9:51am Small cell lung cancer acute [facility] 2024 9:51am 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 [...] is present chronic April 06, 2025 9:34am [facility] [employer] Work Phone: 1(757) 441-458803-10-2025 Evaluation note* Diagnosis Onset Date Resolution Status Admit Date 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 November 24 2:38pm Small cell lung cancer acute [facility]2024 2:38pm 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 November 24, 2024 2:38pm 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 November 24, 2024 2:38pm 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 November 24, 2024 2:38pm Jaundice resolved November 24 2:38pm Bilateral lower extremity edema acut e December 02, 2024 12:19pm Small cell lung cancer acute [facility] 2024 12:19pm 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 December [...] is present chronic March 16, 2025 7:48am [employer] [facility] Work Phone: 1(658) 228-418303-01-2025 [facility]02-28-2025 [facility]02-26-2025 NoteHNO ID: [id number] Author: GIRISH LEMOS MD Service: ? Author [...] for diarrhea which is not helping. Has Lynco for her back which she has been taking for her abdominal pain without much improvement. Needing to take Lynco more than prescribed. Past medical history, appointments, medications, allergies reviewed. Previous Medical History PAST MEDICAL HISTORY Diagnosis Date Anxiety with depression Chronic back pain Chronic kidney disease (CKD), stage 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 Johnson Dysphagia Dr. Stiles Ectopic 1991 GERD (gastroesophageal reflux disease) History of prediabetes Hyperlipidemia Hypertension Hypothyroidism Obesity (BMI 30.0-34.9) Other pulmonary embolism without acute cor pulmonale (HCC) Pneumonia due to [facility]- virus Requiring intubation Previous Surgical History [...] Known Problems Brother Stroke Maternal Grandmother or [place], patient unsure Coronary Artery Disease Maternal Grandfather Alcohol abuse Paternal Grandfather Patient Allergies ALLERGIES Allergen Reactions Meagan Inhibitors Rash Codeine Vomiting, Other: See Comments Headache Remeron [Mirtazapin* Other: See Comments Fatigue Xuvbrnc-Hcn-Enl Red* Myalgia Buckner Unknown Zetia [Ezetimibe] Myalgia Current Medications Current [...] not taking: Reported on 11/05/2024) mv,jaci,iron,mn/folic acid/chol (THHM-SZKA-SDIMV, PABA, ORAL) Take 1 tablet by mouth once daily. (Patient not taking: Reported on 08/22/2022) Minoxidil 2 % external solution Apply 1 mL to affected area twice daily. No current facility-administered medications on file prior to visit. Social History Social History Tobacco Use Smoking status: Former Current packs/day: 0.00 Average packs/day: 1 pack/d (more content not included)...[facility]02-26-2025 History of Present illness Narrative* Girish Lemos [...] for diarrhea which is not helping. Has Lynco for her back which she has been taking for her abdominal pain without much improvement. Needing to take Lynco more than prescribed. Past medical history, appointments, medications, allergies reviewed. Previous Medical History PAST MEDICAL HISTORY Diagnosis Date Anxiety with depression Chronic back pain Chronic kidney disease (CKD), stage 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 Johnson Dysphagia Dr. Stiles Ectopic 1991 GERD (gastroesophageal reflux disease) History of prediabetes Hyperlipidemia Hypertension Hypothyroidism Obesity (BMI 30.0-34.9) Other pulmonary embolism without acute cor pulmonale (HCC) [facility] Requiring intubation Previous Surgical History PAST [...] Known Problems Brother Stroke Maternal Grandmother or [place], patient unsure Coronary Artery Disease Maternal Grandfather Alcohol abuse Paternal Grandfather Patient Allergies ALLERGIES Allergen Reactions Meagan Inhibitors Rash Codeine Vomiting, Other: See Comments Headache Remeron [Mirtazapin* Other: See Comments Fatigue Yneixwj-Esv-Tom Red* Myalgia Buckner Unknown Zetia [Ezetimibe] Myalgia Current Medications Current [...] not taking: Reported on 11/05/2024) mv,jaci,iron,mn/folic acid/chol (EWKF-PGPT-PITLX, PABA, ORAL) Take 1 tablet by mouth [...] diagnosis) Patient with worsening abdominal pain despite Lynco, diarrhea uncontrolled with OTC meds, nausea uncontrolled with zofran. Appears dehydrated. Losing weight. All likely 2/2 cancer of unknown origin. Discussed evaluation through ER with admission to help control pain, give her IV fluids, and ideallyget biopsies to determine cause for her cancer. Agreeable to ER evaluation through [facility]. Called and gave report to ER physician. Advised if they discharge her home without admission, would recommend [facility] or kam. Records sent with patient. to [...] which included preparing to see the patient, imqd-uy-pdgv patient care, completing clinical documentation, obtaining and/or reviewing separately obtained history, performing a medically appropriate examination, counseling and educating the pat ient/family/caregiver, and ordering medications, tests, or procedures. Girish Lemos MD documented in this encounterMari[facility]02-19-2025 Telephone encounter Note * Telephone Encounter - Jen Briggs - 11/05/2024 1:56 PM EST RECOMMENDATION/PLAN: 1. Recommend biopsy of liver. Patient wants to think about it, she' ll call or MyChart if she decides to proceed as recommended [facility] Work Phone: 1(335) 923-245902-19-2025 Miscellaneous Notes* Telephone Encounter - Jen Briggs - 11/05/2024 1:56 PM EST RECOMMENDATION/PLAN: 1. Recommend biopsy of liver. Patient wants to think about it, she' ll call or MyChart if she decides to proceed as recommended documented in this encounterMarietta Osteopathic Clinic02-19-2025 NoteHNO ID: [id number] Author: SILAS ROBBINS MD Service: ? Author [...] III (moderate) (HCC) Colon polyp tubular adenoma [address] 07/16 to 08/17 DDD (degenerative disc [...] Known Problems Brother Stroke Maternal Grandmother or [place], patient unsure Coronary Artery Disease Maternal Grandfather [...] Headache Remeron [Mirtazapin* Other: See Comments Fatigue Gsgbvns-Zdp-Ofg Red* Myalgia Buckner Unknown Zetia [Ezetimibe] Myalgia CURRENT OUTPATIENT MEDICATIONS: [...] not taking: Reported on 11/05/2024) mv,jaci,iron,mn/folic acid/chol (LVFK-RNVK-ZCHHN, PABA, ORAL) Take 1 tablet by mouth [...] which included preparing to see the patient, njph-jl-vanb patient care, completing clinical documentation, obtaining and/or reviewing separately obtained history, counseling and educ (more content not included)...[facility] 11-05-2024 History of Present illness Narrative* Silas [...] 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 Johnson Dysphagia Dr. Stiles Ectopic 1991 GERD (gastroesophageal reflux disease) History of prediabetes Hyperlipidemia Hypertension Hypothyroidism Obesity (BMI 30.0-34.9) Other pulmonary embolism without acute cor pulmonale (HCC) Pneumonia due to [facility]- virus Requiring intubation PAST SURGICAL HISTORY Procedure [...] Known Problems Brother Stroke Maternal Grandmother or [place], patient unsure Coronary Artery Disease Maternal Grandfather [...] Headache Remeron [Mirtazapin* Other: See Comments Fatigue Jezmefb-Pnw-Pls Red* Myalgia Buckner Unknown Zetia [Ezetimibe] Myalgia CURRENT OUTPATIENT MEDICATIONS: [...] not taking: Reported on 11/05/2024) mv,jaci,iron,mn/folic acid/chol (CEIO-HLRS-NBXFM, PABA, ORAL) Take 1 tablet by mouth [...] which included preparing to see the patient, gcck-zp-otun patient care, completing clinical documentation, obtaining and/or reviewing separately obtained history, counseling and educating the patient/family/caregiver, communicating with other HCPs (not separately reported), independently interpreting results (not separately reported), and communicating results to the patient/family/caregiver. Reviewed images. Electronically Signed: Silas Robbins MD November 05, 2024 8:52 AM documented in this encounterMarietta Osteopathic Clinic02-18-2025 Telephone encounter Note * Telephone Encounter - Krystin Zimmerman LPN - 11/04/2024 5:02 PM EST Scan on 11/04/2024 1:33 PM by ProviderVonnie PA-C: Consultation - Pulmonary [facility]02-18-2025 Miscellaneous Notes* Telephone Encounter - Krystin Zimmerman LPN - 11/04/2024 5:02 PM EST Scan on 11/04/2024 1:33 PM by ProviderVonnie PA-C: Consultation - Pulmonary * Telephone Encounter [...] 11/04/2024 12:16 PM EST Roxann Gomez CNP [facility] calls and is requesting PCP to call her back about patient. Terri Dowell RN documented in this encounterMarietta Osteopathic Clinic02-18-2025 Telephone encounter Note * Telephone Encounter - [...] to Dr. Robbins to review as FYI. [facility]02-18-[facility]25 Telephone encounter Note* Telephone Encounter - Girish Lemos MD - 11/04/2024 12:26 PM EST Call is going to directly voicemail. Will call back after seeing next patient. [facility]02-18-2025 Telephone encounter Note* Telephone Encounter - Terri Dowell RN - 11/04/2024 12:16 PM EST Roxann Gomez CNP [facility] calls and is requesting PCP to call her back about patient. Terri Dowell, RN [facility]02-17-2025 Telephone encounter Note* Telephone Encounter - Joyce Cisneros LPN - 11/03/2024 2:38 PM EST After speaking to Dr. Lee regarding this patient's records, I spoke with the patient and she decided to keep the appointment as scheduled with Dr. Robbins as to not delay her care. Joyce Cisneros LPN [facility]02-17-2025 Miscellaneous Notes* Telephone Encounter - Joyce Cisneros [...] reschedule after patient has pet scan at [facility]. Daughter states wait until results from Pet scan and then patient will reschedule. documented in this encounterMarietta Osteopathic Clinic02-17-2025 Telephone encounter Note * Telephone Encounter - Haroon RoyalJen - 11/03/2024 1:43 PM EST Patient called [...] reschedule after patient has pet scan at [facility]. Daughter states wait until results from Pet scan and then patient will reschedule. [facility] Work Phone: 1(696) 132-441702-17-2025 Evaluation note* Diagnosis Onset Date Resolution Status [...] 12, 2024 12:58pm Metastasis to liver acute u 2024 12:58pm [facility] Work Phone: 1(998) 260-591802-17-2025 Evaluation note* Diagnosis Onset Date Resolution Status [...] 2024 2:38pm Small cell lung cancer acute [facility] 2024 2:38pm Bilateral lower extremity edema acut e December 02, 2024 12:19pm Jaundice acute December 02 12:19pm Metastasis to bone acute December 02, 2024 12:19pm Metastasis to liver acute December 02, 2024 12:19pm Regional lymph node metastas is present acute December 02, 2024 12:19pm Small cell lung cancer acute [facility] 2024 12:19pm Bilateral lower extremity edema acut e December 09, 2024 9:51am Metastasis to bone acute December 09, 2024 9:51am Metastasis to liver acute December 09, 2024 9:51am Regional lymph node metastas is present acute December 09, 2024 9:51am Small cell lung cancer acute [facility] 2024 9:51am Encounter for insertion of venous access port acute December 10 025 12:33pm 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 December 10 12:33pm [facility] Work Phone: 1(636) 202-135802-17-2025 Evaluation note* Diagnosis Onset Date Resolution Status [...] 2024 2:38pm Small cell lung cancer acute [facility] 2024 2:38pm Jaundice resolved November 24 2:38pm Bilateral lower extremity edema acute December 02, 2024 12:19pm Metastasis to bone acute December 02, 2024 12:19pm Metastasis to liver acute December 02, 2024 12:19pm Regional lymph node metastas is present acute December 02, 2024 12:19pm Small cell lung cancer acute [facility] 2024 12:19pm Jaundice resolved December 02 12:19pm Bilateral lower extremity edema acute December 09, 2024 9:51am Metastasis to bone acute December 09, 2024 9:51am Metastasis to liver acute December 09, 2024 9:51am Regional lymph node metastas is present acute December 09, 2024 9:51am Small cell lung cancer acute [facility] 2024 9:51am Encounter for insertion of venous [...] cell lung cancer acute Ap 2024 7:31pm [facility] Work Phone: 1(306) 266-450702-17-2025 Evaluation note* Diagnosis Onset Date Resolution Status [...] 2024 2:38pm Small cell lung cancer acute [facility] 2024 2:38pm Jaundice resolved November 24 2:38pm Bilateral lower extremity edema acute December 02, 2024 12:19pm Metastasis to bone acute December 02, 2024 12:19pm Metastasis to liver acute December 02, 2024 12:19pm Regional lymph node metastas is present acute December 02, 2024 12:19pm Small cell lung cancer acute [facility] 2024 12:19pm Jaundice resolved December 02 12:19pm Bilateral lower extremity edema acute December 09, 2024 9:51am Metastasis to bone acute December 09, 2024 9:51am Metastasis to liver acute December 09, 2024 9:51am Regional lymph node metastas is present acute December 09, 2024 9:51am Small cell lung cancer acute [facility] 2024 9:51am Encounter for insertion of venous [...] :56am Jaundice resolved February 03, 2025 7:56am [facility] Work Phone: 1(435) 326-705002-17-2025 Evaluation note* Diagnosis Onset Date Resolution Status [...] 2024 12:58pm 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 Febru dacia2024 12:58pm Elevated LFTs deleted November 122024 12:58pm Elevated lipase deleted November 12, 2024 12:58pm 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 November 24 2:38pm Small cell lung cancer acute [facility] 2024 2:38pm 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 November 24, 2024 2:38pm 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 November 24, 2024 2:38pm 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 Pt is aware [facility]02-14-2025 Miscellaneous Notes* Telephone Encounter - Delmis Park PSS - 10/31/2024 4:04 PM EST CD READY FOR ASSISTED LIVING DIRECTOR AT [facility] Pt is aware * Telephone Encounter - Chacho Ambriz LPN - 10/31/2024 12:10 PM EST Pt called to request a copy of the disk for the CT of chest pt had done 10/30/24. Pt has an apt on 11-21-24 at [facility] with Pulmonology. Pt is trying to get this moved up. Please advise pt when the disk is done. Chacho Ambriz LPN documented in this encounterMarietta Osteopathic Clinic02-14-2025 Telephone encounter Note * Telephone Encounter - Jen Briggs - 10/31/2024 2:36 PM EST Appointment scheduled. [facility] Work Phone: 1(501) 985-580802-14-2025 Miscellaneous Notes* Telephone Encounter - Jen Briggs [...] Please review and advise. documented in this encounterMarietta Oste[facility] Clinic02-14-2025 Telephone encounter Note * Telephone Encounter - Joyce Cisneros LPN - 10/31/2024 2:13 PM EST PSS- please schedule patient with Dr. Robbins on 11/05/2024 @ 9:00. Patient knows to arrive at 8:30. She is aware of the appointment. Joyce Cisneros LPN [facility]02-14-2025 Telephone encounter Note* Telephone Encounter - Chacho Ambriz LPN - 10/31/2024 12:10 PM EST Pt called to request a copy of the disk for the CT of chest pt had done 10/30/24. Pt has an apt on 11-21-24 at [facility] with Pulmonology. Pt is trying to get this moved up. Please advise pt when the disk is done. Chacho Ambriz LPN [facility]02-14-2025 Telephone encounter Note* Telephone Encounter - Lizzy Watson - 10/31/2024 9:19 AM EST Patient scheduled consultation with hepatology on 12/26/24 and has been added to wait list. Patient declined to schedule with provider's that had sooner availability due to distance to facilities. Routing message to CC Iram Fidel/Onc to assist patient with scheduling oncology referral. [facility]02-14-2025 Miscellaneous Notes* Telephone Encounter - Lizzy Watson - 10/31/2024 9:19 AM EST Patient scheduled consultation with hepatology on 12/26/24 and has been added to wait list. Patient declined to schedule with provider's that had sooner availability due to distance to facilities. Routing message to Iram Fidel/Onc to assist patient with scheduling oncology referral. * Telephone Encounter - Marta Meadows RN - 10/31/2024 9:12 AM EST Patient returned call and given provider's message regarding CT scan results. Patient agreeable to schedule with sales trainee. 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 Faxed CT results and demographics to [facility] pulmonology per patient request. documented in this encounterMarietta Osteopathic Clinic02-14-2025 Telephone encounter Note * Telephone Encounter - Marta Meadows RN - 10/31/2024 9:12 AM EST Patient returned call and given provider's message regarding CT scan results. Patient agreeable to schedule with sales trainee. 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 Faxed CT results and demographics to [facility] pulmonology per patient request. [facility]02-14-2025 Telephone encounter Note* Telephone Encounter - Joyce Cisneros LPN - 10/31/2024 8:55 AM EST Left message for patient to contact office. PSS- please offer her a new patient appointment TODAY with Dr. Hansen @ 10:30 or 1:00. Joyce Cisneros LPN [facility]02-13-2025 Telephone encounter Note* Telephone Encounter - Joyce Cisneros LPN - 10/30/2024 4:[address] chest results from 10/30/2024- IMPRESSION: 1. Irregular left upper lobe perihilar mass which could represent a primary lung malignancy or metastatic lesion 2. Mediastinal and left hilar lymphadenopathy CT abd/pel from 10/16/2024- Numerous bilobar hepatic masses Being referred by Dr. Lemos. No biopsy yet. Joyce Cisneros LPN [facility]02-13-2025 Telephone encounter Note* Telephone Encounter - Poonam [...] received and PCP advises. Poonam Denise RN [facility]02-13-2025 Miscellaneous Notes* Telephone Encounter - Poonam Denise [...] advises. Poonam Denise RN documented in this encounterMarietta Osteopathic Clinic02-13-2025 History of Present illness Narrative* Viridiana Torres RT(R) - 10/30/2024 8:00 AM EST Radiology [...] PATIENT PRESENTS WITH AN IMPLANTABLE OR ATTACHED LUMBER INSPECTOR: No ALLERGIES: Reviewed and unchanged CONTRAST ALLERGY: [...] 2024 TIME: 12:42 PM documented in this encounterMarietta Osteopathic Clinic02-13-2025 NoteHNO ID: [id number] Author: VIRIDIANA TORRES RT(R) Service: ? Author Type: Rolling Machine Operator Type: Progress Notes Filed: 10/30/2024 12:42 Note [...] PATIENT PRESENTS WITH AN IMPLANTABLE OR ATTACHED LUMBER INSPECTOR: No ALLERGIES: Reviewed and unchanged CONTRAST ALLERGY: [...] Rodrigez DATE: October 30, 2024 TIME: 12:42 [facility]02-10-2025 Telephone encounter Note* Telephone Encounter - Joyce Cisneros LPN - 10/27/2024 9:[address] chest scheduled for 10/30/2024. Joyce Cisneros LPN [facility]02-05-2025 Telephone encounter Note* Telephone Encounter - Phylicia Heredia RN - 10/22/2024 3:19 PM EST Patient calls upset that the CT scan of her chest order has been cancelled four times. Patient requests order be sent to [facility] to see if they can see her any sooner that [facility]. Faxed per request to [phone]. Submitted PA to [employer] and [employer]ori. Phylicia Heredia RN [facility]02-05-2025 Miscellaneous Notes* Telephone Encounter - Phylicia Heredia RN - 10/22/2024 3:19 PM EST Patient calls upset that the CT scan of her chest order has been cancelled four times. Patient requests order be sent to [facility] to see if they can see her any sooner that [facility]. Faxed per request to [phone]. Submitted PA to [employer] and [employer]. Phylicia Heredia RN documented in this encounterMarietta [facility] Clinic02-05-2025 Telephone encounter Note * Telephone Encounter - Joyce Cisneros LPN - 10/22/2024 10:31 AM EST D/T CT machine being down, CT chest rescheduled to 10/22/2024. Joyce Cisneros LPN [facility]02-03-2025 Telephone encounter Note* Telephone Encounter - Mae Wong MA - 10/20/2024 10:40 AM EST Pt notified of results via [employer]. Mae Wong Ma [facility]02-03-2025 Miscellaneous Notes* Telephone Encounter - Mae Wong [...] ordered follow up labs. documented in this encounterMarietta Osteopathic Clinic02-03-2025 Telephone encounter Note * Telephone Encounter - Oleg Fields APRN.CNP - 10/20/2024 10:20 AM EST Please let patient know her hepatitis panel is negative. [facility]02-03-2025 Telephone encounter Note* Telephone Encounter - Mae Wong MA - 10/20/2024 10:11 AM EST Pt notified of results via [employer]. Mae Wong Ma [facility]02-03-2025 Miscellaneous Notes* Telephone Encounter - Mae Wong [...] as discussed in office. documented in this encounterMarietta [facility] Clinic02-03-2025 Telephone encounter Note * Telephone Encounter - Mae Wong MA - 10/20/2024 10:10 AM EST ----- Message from Girish Lemos MD sent at 10/19/2024 2:20 PM EST ----- Normal alpha fetoprotein level. Follow up with CT chest and referrals as discussed in office. [facility]02-03-2025 Telephone encounter Note* Telephone Encounter - Joyce Cisneros LPN - 10/20/2024 8:34 AM EST Scheduled for CT chest today to find primary. Will need biopsy. Joyce Cisneros LPN [facility]02-03-2025 Telephone encounter Note* Telephone Encounter - Jyotsna Bender - 10/20/2024 8:29 AM EST Patient has consult to Oncology that needs to be scheduled. DX: Liver Masses Insurance: [employer] Medicare Advantage HMO Referred by: Girish Lemos MD Please review and advise. [facility]02-02-2025 Telephone encounter Note* Telephone Encounter - Girish Lemos MD - 10/19/2024 1:52 PM EST Thank you. [facility]02-02-2025 Miscellaneous Notes* Telephone Encounter - Girish Lemos MD - 10/19/2024 1:52 PM EST Thank you. * Telephone Encounter - Lennox Bellamy MSW - 10/17/2024 3:50 PM EST Sw spoke with patient regarding transportation needs. Patient reports that she does live in [place]. Her spouse takes her to doctor appts, he is just not able to drive early in the morning or late at night, due to vision issues. Patient reports I do think that my Medicare Advantage plan has transportation. Patient will giveher insurance a call to discuss transportation and see if she has that as a benefit. Patient and Sw also discussed [employer] [place] [place]. Sw provided patient with the number for [employer]. [employer] coordinates local churches in [place] to address needs of residents. Patient notes that she will check with [employer] if insurance is unable to provide transportation assistance. Sw also provided patient with Sw direct number and discussed other needs ie home care, home delivered meals, financial assistance needs that Sw could help with linking to resources. Patient thanked SW for call and will let Sw know if she has any further needs. documented in this encounterMarietta Osteopathic Clinic01-31-2025 Telephone encounter Note * Telephone Encounter - Lennox Bellamy MSW - 10/17/2024 3:50 PM EST Sw spoke with patient regarding transportation needs. Patient reports that she does live in [place]. Her spouse takes her to doctor appts, he is just not able to drive early in the morning or late at night, due to vision issues. Patient reports I do think that my Medicare Advantage plan has transportation. Patient will giveher insurance a call to discuss transportation and see if she has that as a benefit. Patient and Sw also discussed [employer] [facility]. Sw provided patient with the number for [employer]. [employer] coordinates local churches in [place] to address needs of residents. Patient notes that she will check with [employer] if insurance is unable to provide transportation assistance. Sw also provided patient with Sw direct number and discussed other needs ie home care, home delivered meals, financial assistance needs that Sw could help with linking to resources. Patient thanked SW for call and will let Sw know if she has any further needs. [facility]01-31-2025 NoteHNO ID: [id number] Author: GIRISH LEMOS MD Service: ? Author [...] pain, currently 5/10. Treating at home with Lynco which Dr. Johnson prescribes for her back [...] III (moderate) (HCC) Colon polyp tubular adenoma [address] 07/16 to 08/17 DDD (degenerative disc [...] Cancer Brother lung Stroke Maternal Grandmother or [place], patient unsure Coronary Artery Disease Maternal Grandfather No Known Problems Sister Patient Allergies ALLERGIES Allergen Reactions Meagan Inhibitors Rash Codeine Vomiting, Other: See Comments Headache Remeron [Mirtazapin* Other: See Comments Fatigue Dvzexhg-Xor-Uvw Red* Myalgia Buckner Unknown Zetia [Ezetimibe] Myalgia Current Medications Current [...] once for 1 dose.N (more content not included)...[facility]01-31-2025 History of Present illness Narrative* Girish Lemos [...] RUQ pain, currently 5/10. Treating at homewith Lynco which Dr. Johnson prescribes for her back [...] III (moderate) (HCC) Colon polyp tubular adenoma [address] 07/16 to 08/17 DDD (degenerative disc [...] Cancer Brother lung Stroke Maternal Grandmother or [place], patient unsure Coronary Artery Disease Maternal Grandfather No Known Problems Sister Patient Allergies ALLERGIES Allergen Reactions Meagan Inhibitors Rash Codeine Vomiting, Other: See Comments Headache Remeron [Mirtazapin* Other: See Comments Fatigue Bwxiarj-Rif-Ixy Red* Myalgia Buckner Unknown Zetia [Ezetimibe] Myalgia Current Medications Current [...] designated per enteric contrast guidelines mv,jaci,iron,mn/folic acid/chol (VIYH-LRBM-MBNTQ, PABA, ORAL) Take 1 tablet by mouth [...] Abs Lymph 1.00 - 4.00 k/uL 1.31 Hand% % 13.9 Abs Hand <0.87 k/uL 0.66 Eosin% % 1.7 Abs [...] which included preparing to see the patient, ynwq-or-wqiw patient care, completing clinical documentation, obtaining and/or reviewing separately obtained history, performing a medically appropriate examination, counseling and educating the pat ient/family/caregiver, and ordering medications, tests, or procedures. Girish Lemos MD documented in this encounterMarietta Osteopathic Clinic01-30-2025 Telephone encounter Note * Telephone Encounter - Arin Muñoz MA - 10/16/2024 3:00 PM EST Pt notified and scheduled for a follow up tomorrow Arin Muñoz MA [facility]01-30-2025 Telephone encounter Note* Telephone Encounter - Oleg Fields APRN.CNP - 10/16/2024 1:33 PM EST Please call patient and schedule follow up with Dr. Lemos for tomorrow to discuss results and care plan. Also let patient know I have ordered follow up labs. [facility]01-30-2025 NoteHNO ID: [id number] Author: OLEG FIELDS APRN.CNP Service: ? Author [...] 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 Johnson Dysphagia Dr. Stiles Ectopic 1991 GERD (gastroesophageal reflux disease) History of prediabetes Hyperlipidemia Hypertension Hypothyroidism Obesity (BMI 30.0-34.9) Other pulmonary embolism without acute cor pulmonale (HCC) [facility] Requiring intubation Previous Surgical History PAST SURGICAL HISTORY Procedure Laterality Date APPENDECTOMY 1966 BREAST LUMPECTOMY HX Bilateral BREAST RECONSTRUCTION Right SECTION HX 1974, 1975 CHOLECYSTECTOMY 2016 COLONOSCOPY 2016 repeat in 3 years, Dr. Stiles LYSIS OF ADHESIONS 1979 PAST SURGICAL HISTORY [...] Cancer Brother lung Stroke Maternal Grandmother or [place], patient unsure Coronary Artery Disease Maternal Grandfather No Known Problems Sister Patient Allergies ALLERGIES Allergen Reactions Meagan Inhibitors Rash Codeine Vomiting, Other: See Comments Headache Remeron [Mirtazapin* Other: See Comments Fatigue Hqhtgcy-Uex-Asi Red* Myalgia Buckner Unknown Zetia [Ezetimibe] Myalgia Current Medications Current [...] hours as needed for pain. mv,jaci,iron,mn/folic acid/chol (PXLL-YOMA-NDTBJ, PABA, ORAL) Take 1 tablet by mouth [...] on 07/15/2027 Lipid Screeni (more content not included)...[facility]01-30-2025 History of Present illness Narrative* Oleg Fields, AELXA.MARINE O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 - 10/16/2024 8:38 AM EST Chief Complaint [...] 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 Johnson Dysphagia Dr. Stiles Ectopic 1991 GERD (gastroesophageal reflux disease) History of prediabetes Hyperlipidemia Hypertension Hypothyroidism Obesity (BMI 30.0-34.9) Other pulmonary embolism without acute cor pulmonale (HCC) Pneumonia [facility] Requiring intubation Previous Surgical History PAST [...] Cancer Brother lung Stroke Maternal Grandmother or [place], patient unsure Coronary Artery Disease Maternal Grandfather No Known Problems Sister Patient Allergies ALLERGIES Allergen Reactions Meagan Inhibitors Rash Codeine Vomiting, Other: See Comments Headache Remeron [Mirtazapin* Other: See Comments Fatigue Cmyjpga-Olo-Aqe Red* Myalgia Buckner Unknown Zetia [Ezetimibe] Myalgia Current Medications Current [...] hours as needed for pain. mv,jaci,iron,mn/folic acid/chol (HYKV-SXLF-VPGFJ, PABA, ORAL) Take 1 tablet by mouth [...] R11.0 - CT ABD/PEL W IVCON Oleg Knoble, 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 documented in this encounterMarietta [facility]01-29-[facility]25 Telephone encounter Note * Telephone Encounter - [...] pain, vomiting Protocols used: Abdominal Pain - Xdipft-XUXUO-CN [facility]01-29-2025 Miscellaneous Notes* Telephone Encounter - Phylicia Heredia [...] pain, vomiting Protocols used: Abdominal Pain - Fhdgxv-DZMOH-AF documented in this encounterMarietta Osteopathic Clinic01-03-2025 NoteHNO ID: [id number] Author: GIRISH LEMOS MD Service: ? Author Type: Physician Type: Progress Notes Filed: 09/19/2024 13:08 Note Text: Chief Complaint Patient presents with: Blood Pressure: Recheck-losartan increased to 50mg.No note of call back from [facility] [place] around 09/03/24 as requested with readings. 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 Johnson Dysphagia Dr. Stiles Ectopic 1991 GERD (gastroesophageal reflux disease) History of prediabetes Hyperlipidemia Hypertension Hypothyroidism Obesity (BMI 30.0-34.9) Other pulmonary embolism without acute cor pulmonale (HCC) Pneumonia due to [facility]- virus Requiring intubation Previous Surgical History [...] Cancer Brother lung Stroke Maternal Grandmother or [place], patient unsure Coronary Artery Disease Maternal Grandfather No Known Problems Sister Patient Allergies ALLERGIES Allergen Reactions Meagan Inhibitors Rash Codeine Vomiting, Other: See Comments Headache Remeron [Mirtazapin* Other: See Comments Fatigue Ncigfmq-Xxy-Rye Red* Myalgia Buckner Unknown Zetia [Ezetimibe] Myalgia Current Medications Current [...] mouth two times a day. mv,jaci,iron,mn/folic acid/chol (GWER-QNFD-EQBIC, PABA, ORAL) Take 1 tablet by mouth [...] distress, well-hydrated, well nouris (more content not included)...[facility]01-03[facility]25 History of Present illness Narrative* Girish Lemos MD - 09/19/2024 9:57 AM EST Chief Complaint Patient presents with: Blood Pressure: Recheck-losartan increased to 50mg.No note of call back from [facility] 09/03/24 as requested with readings. 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 Johnson Dysphagia Dr. Stiles Ectopic 1991 GERD (gastroesophageal reflux disease) History of prediabetes Hyperlipidemia Hypertension Hypothyroidism Obesity (BMI 30.0-34.9) Other pulmonary embolism without acute cor pulmonale (HCC) Pneumonia [facility] Requiring intubation Previous Surgical History PAST [...] Cancer Brother lung Stroke Maternal Grandmother or [place], patient unsure Coronary Artery Disease Maternal Grandfather No Known Problems Sister Patient Allergies ALLERGIES Allergen Reactions Meagan Inhibitors Rash Codeine Vomiting, Other: See Comments Headache Remeron [Mirtazapin* Other: See Comments Fatigue Uyretaf-Wsl-Utr Red* Myalgia Buckner Unknown Zetia [Ezetimibe] Myalgia Current Medications Current [...] mouth two times a day. mv,jaci,iron,mn/folic acid/chol (UYRD-AXKX-IRYBH, PABA, ORAL) Take 1 tablet by mouth [...] exercise Girish Lemos MD documented in this encounterMarietta [facility] Clinic12-11-2024 Telephone encounter Note * Telephone Encounter - Rachael Baker RN - 08/27/2024 10:50 AM EST Jeanne- [facility] [place] called and is notified of providers message and instructions. She voices understanding and will send updated Bps in one week. Rachael Baker RN [facility]12-11-2024 Miscellaneous Notes* Telephone Encounter - Rachael Baker RN - 08/27/2024 10:50 AM EST Jeanne- [facility] [place] called and is notified of providers message [...] AM EST Jeanne- [facility] [place]- reports she received a referral from patient's insurance company, once patient's losartan was increased, for their 3 mth monitoring program. [facility] monitors quality of life, checks VS's, [...] weeks. Given fax number. documented in this encounterMarietta Osteopathic Clinic12-11-2024 Telephone encounter Note * Telephone Encounter - Girish Lemos MD - 08/27/2024 10:15 AM EST BP still high on this dosage after about 1 week. Please send updated BP in 1 week. If still high then, will increase to 100 mg daily. [facility]12-11-[facility] Telephone encounter Note* Telephone Encounter - Marta Meadows RN - 08/27/2024 9:33 AM EST Jeanne- [facility] [place]- reports she received a referral from patient's insurance company, once patient's losartan was increased, for their 3 mth monitoring program. [facility] monitors quality of life, checks VS's, [...] patient for 3 weeks. Given fax number. [facility]12-03-2024 History of Present illness Narrative* Podlogar, ALEXA Reid.DIA - 08/19/2024 10:20 AM EST 08/19/2024 Patient [...] 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 Johnson Dysphagia Dr. Stiles Ectopic 1991 GERD (gastroesophageal reflux disease) History of prediabetes Hyperlipidemia Hypertension Hypothyroidism Obesity (BMI 30.0-34.9) Other pulmonary embolism without acute cor pulmonale (HCC) Pneumonia due to [facility]- virus Requiring intubation ALLERGIES Meagan Inhibitors, Codeine, Remeron [Mirtazapine], Rtqkuoo-Wzi-Eem Reductase Inhibitors, Buckner, and Zetia [Ezetimibe] MEDICATIONS Current Outpatient Medications [...] hours as needed for pain. mv,jaci,iron,mn/folic acid/chol (RDAH-ZIUO-OFLGY, PABA, ORAL) Take 1 tablet by mouth [...] visit - LOSARTAN 50 MG TABLET Jeanette Berrios, ALEXA.MARINE O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 Prescription instructions reviewed with patient as applicable. [...] Level: 4 - Moderate documented in this encounterMarietta Osteopathic Clinic12-03-2024 NoteHNO ID: [id number] Author: JEANETTE BERRIOS APRN.DIA Service: ? Author [...] 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 Johnson Dysphagia Dr. Stiles Ectopic 1991 GERD (gastroesophageal reflux disease) History of prediabetes Hyperlipidemia Hypertension Hypothyroidism Obesity (BMI 30.0-34.9) Other pulmonary embolism without acute cor pulmonale (HCC) P[facility] Requiring intubation ALLERGIES Meagan Inhibitors, Codeine, Remeron [Mirtazapine], Bmgmuwc-Ata-Esk Reductase Inhibitors, Buckner, and Zetia [Ezetimibe] MEDICATIONS Current Outpatient Medications [...] hours as needed for pain. mv,jaci,iron,mn/folic acid/chol (HVIR-WIIN-DYRRG, PABA, ORAL) Take 1 tablet by mouth [...] - LOSARTAN 50 MG TABLET Jeanette Berrios APRN.MARINE O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 Prescription instructions reviewed with patient as applicable. [...] testing/treatment Medical Decision Making Level: 4 - [facility] NoteHNO ID: [id number] Author: JEANETTE BERRIOS APRN.DIA Service: ? Author [...] No. 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 Last visit in May. 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 Johnson Dysphagia Dr. Stiles Ectopic 1991 GERD (gastroesophageal reflux disease) History of prediabetes Hyperlipidemia Hypertension Hypothyroidism Obesity (BMI 30.0-34.9) Other pulmonary embolism without acute cor pulmonale (HCC) Pneumonia due to COVID-19 virus Requiring intubation ALLERGIES Meagan Inhibitors, Codeine, Remeron [Mirtazapine], Vxsdzlj-Acl-Oni Reductase Inhibitors, Buckner, and Zetia [Ezetimibe] MEDICATIONS Current Outpatient Medications [...] hours as needed for pain. mv,jaci,iron,mn/folic acid/chol (SDZF-EZHG-ATJYV, PABA, ORAL) Take 1 tablet by mouth [...] or lesions to exposed skin Latest Ref [facility] 01/18/2024 WBC 3.70 - 11.00 k/uL 4.22 [...] Abs Lymph 1.00 - 4.00 k/uL 1.36 Hand% % 13.7 Abs Hand <0.87 k/uL 0.58 Eosin% % 2.4 Abs Eosin <0.46 k/uL 0.10 Baso% % 1.4 Abs Baso <0.11 k/uL 0.06 Immature Gran % % 0.5 IMMATURE GRANS (ABS) <0.10 k/uL <0.03 NRBC /100 WBC 0 (more content not included)...[facility] 07-15-2024 History of Present illness Narrative* Podlogar, Jeanette, 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 - 07/15/2024 8:56 AM EDT 07/15/2024 Patient [...] No. 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 Last visit in May. 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 Johnson Dysphagia Dr. Stiles Ectopic 1991 GERD (gastroesophageal reflux disease) History of prediabetes Hyperlipidemia Hypertension Hypothyroidism Obesity (BMI 30.0-34.9) Other pulmonary embolism without acute cor pulmonale (HCC) Pneumonia due to [facility]- virus Requiring intubation ALLERGIES Meagan Inhibitors, Codeine, Remeron [Mirtazapine], Xxtyphb-Kcb-Yos Reductase Inhibitors, Buckner, and Zetia [Ezetimibe] MEDICATIONS Current Outpatient Medications [...] hours as needed for pain. mv,jaci,iron,mn/folic acid/chol (STVO-WJSG-UFTMR, PABA, ORAL) Take 1 tablet by mouth [...] or lesions to exposed skin Latest Ref Rn 01/18/2024 WBC 3.70 - 11.00 k/uL 4.22 [...] Abs Lymph 1.00 - 4.00 k/uL 1.36 Hand% % 13.7 Abs Hand <0.87 k/uL 0.58 Eosin% % 2.4 Abs [...] Follow up in 6 months Jeanette Berrios APRN.DIA Prescription instructions reviewed with [...] Level: 4 - Moderate documented in this encounterMarietta [facility] Clinic10-25-2024 Telephone encounter Note * Telephone Encounter - [...] Briseyda Kong July 11, 2024 8:49 AM [facility]10-25-2024 Miscellaneous Notes* Telephone Encounter - Briseyda Kong [...] 11, 2024 8:49 AM documented in this encounterMarietta Osteopathic Clinic10-09-2024 NotePatient Outreach (INTMMN) BETSY RODRIGEZ ([id number]) 1955 F Date Time Provider Department 06/25/24 GIRISH LEMOS INTMMN During your visit today, we recorded the following information about you: Allergies As of Date: 06/25/2024 Noted Allergy Reaction MEAGAN INHIBITORS 10/06/2017 2 - Rash CODEINE 10/06/2017 11 - Vomiting 14 - Other: See Comments Comments: Headache REMERON (MIRTAZAPINE) 01/17/2021 14 - Other: See Comments Comments: Fatigue GVOWLZL-RLW-TJO REDUCTASE INHIBIT*11/14/2017 17 - Myalgia WALNUT 10/06/2017 16 - Unknown ZETIA (EZETIMIBE) 01/17/2021 17 - Myalgia Date Reviewed: 01/08/2024 Reviewed by: Krystin Zimmerman LPN - Fully Assessed Visit Diagnosis:Encounter for screening mammogram for breast cancer [Z12.31] Order(s):LYN SCREENING W ANT [[id number]] Order #: [id number] FUTURE Prescriptions as of 06/30/2024 - potassium [...] as needed for pain. - mv,jaci,iron,mn/folic acid/chol (RYLB-KJVL-RTMCI, PABA, ORAL) Take 1 tablet by mouth [...] 06/22/2023 Encounter Status:Closed by ELLIOTT ANNA on 06/30/24[facility] 04-[facility] Telephone encounter Note* Telephone Encounter - [place] Beverley Royal - 04/28/2024 2:01 PM EDT [...] Beverley Royal April 28, 2024 2:02 PM [facility]08-12-2024 Miscellaneous Notes* Telephone Encounter - [place] Beverley Royal - 04/28/2024 2:01 PM EDT [...] 28, 2024 2:02 PM documented in this encounterMarietta Osteopathic Clinic05-06-2024 Telephone encounter Note * Telephone Encounter - Mae Wong MA - 01/21/2024 10:45 AM EDT Pt notified and voiced understanding. Mae Wong MA [facility]05-06-2024 Miscellaneous Notes* Telephone Encounter - Mae Wong [...] normal. Jeanette Berrios APRN.CNP documented in this encounterMarietta Osteopathic Clinic05-06-2024 Telephone encounter Note * Telephone Encounter - Mae Wong MA - 01/21/2024 10:44 AM EDT ----- Message from Jeanette Berrios APRN.CNP sent at 01/21/2024 6:40 AM EDT ----- Vitamin D mildly low- if not already should take 2000 units daily- may get this over the counter. The rest of her blood work is normal. Jeanette Berrios APRN.CNP [facility]04-23-2024 History of Present illness Narrative* Jeanette Berrios [...] No. 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 Has follow-up with pulmonology next week. HYPOTHYROIDISM: [...] 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 Johnson Dysphagia Dr. Stiles Ectopic 1991 GERD (gastroesophageal reflux disease) History of prediabetes Hyperlipidemia Hypertension Hypothyroidism Obesity (BMI 30.0-34.9) Other pulmonary embolism without acute cor pulmonale (HCC) [facility] Requiring intubation ALLERGIES Meagan Inhibitors, Codeine, Remeron [Mirtazapine], Euiisyd-Ikf-Xrj Reductase Inhibitors, Buckner, and Zetia [Ezetimibe] MEDICATIONS Current Outpatient Medications [...] not taking: Reported on 06/22/2023) mv,jaci,iron,mn/folic acid/chol (MWLW-QVFW-JDERZ, PABA, ORAL) Take 1 tablet by mouth [...] COMPLETE BLOOD COUNT AND DIFFERENTIAL Jeanette Berrios APRN.MARINE O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 Prescription instructions reviewed with patient as applicable. [...] Level: 4 - Moderate documented in this encounterMarietta Osteopathic Clinic02-06-2024 Miscellaneous Notes* Telephone Encounter - Adriana Landry [...] you. Adriana Landry LPN. documented in this encounterMarietta Osteopathic Clinic10-06-2023 Instructions* Patient Instructions* Jeanette Berrios APRN.CNP - 06/22/2023 9:17 AM EDT Check labs in August, follow-up in 6 months for routine visit Use debrox for ear documented in this encounterMarietta Osteopathic Clinic10-06-2023 History of Present illness Narrative* Jeanette Berrios [...] bedning over. ASTHMA: Follows with Dr. James, [facility] carton gluing machine operator with last visit on 03/13/2023. Completed PFT and walking test. Patient reports was told looks like she is improving some Patient reports spoke with sleep medicine over at [facility] and was told she has horrible insomnia. Will be following up with sleep medicine. Has CPAP she uses sometimes HYPOTHYROIDISM: taking synthroid as prescribed without side effects PREDIABETES: tries to eat lower carbohydrate diet and stay active. Denies visual changes, polyuria or polydipsia Followed up with vegetable farmer in [place] and she reports she was told she [...] 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 Johnson Dysphagia Dr. Stiles Ectopic 1991 GERD (gastroesophageal reflux disease) History of prediabetes Hyperlipidemia Hypertension Hypothyroidism Obesity (BMI 30.0-34.9) Other pulmonary embolism without acute cor pulmonale (HCC) Pneumonia due to [place] [address] virus Requiring intubation ALLERGIES Meagan Inhibitors, Codeine, Remeron [Mirtazapine], Hbehcng-Btw-Rqd Reductase Inhibitors, Buckner, and Zetia [Ezetimibe] MEDICATIONS Current Outpatient Medications [...] tablets by mouth once daily. mv,jaci,iron,mn/folic acid/chol (UYDQ-QWXD-WPCVA, PABA, ORAL) Take 1 tablet by mouth [...] Abs Lymph 1.00 - 4.00 k/uL 1.41 Hand% % 12.2 Abs Hand <0.87 k/uL 0.66 Eosin% % 2.8 Abs [...] - ICD9: 426.11, ICD10: I44.0 - follow-up wiht cardiology as recommended Jeanette Berrios APRN.DIA Prescription [...] which included preparing to see the patient, xabt-av-scxt patient care, completing clinical documentation, obtaining and/or reviewing separately obtained history, performing a medically appropriate examination, counseling and educating the pat ient/family/caregiver, and ordering medications, tests, or procedures. documented in this encounterMarietta Osteopathic Clinic08-21-2023 Miscellaneous Notes* Telephone Encounter - Rosario Haddad [...] her insurance. Pended. Needs diagnosis. Fax to [phone]. Phylicia Heredia RN documented in this encounterMarietta Osteopathic Clinic08-21-[address] [facility]07-28-2023 Miscellaneous Notes* Telephone Encounter - Phylicia [...] you. Phylicia Heredia RN documented in this encounterMarietta Osteopathic Clinic07-05-2023 Instructions* Patient Instructions* Jeanette Berrios APRN.CNP - 03/21/2023 9:29 AM EDT Make appointment with Dr. Stiles to discuss colonoscopy documented in this encounterMarietta Osteopathic Clinic07-05-2023 History of Present illness Narrative* Jeanette Berrios [...] pain or palpitations. Has appointment with non-[facility] vegetable farmer in March for her bradycardia Spot to [...] 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 Johnson Dysphagia Dr. Stiles Ectopic 1991 GERD (gastroesophageal reflux disease) History of prediabetes Hyperlipidemia Hypertension Hypothyroidism Obesity (BMI 30.0-34.9) Other pulmonary embolism without acute cor pulmonale (HCC) Pneumonia due to [facility]- virus Requiring intubation ALLERGIES Emagan Inhibitors, Codeine, Remeron [Mirtazapine], Dviayrz-Yqe-Uax Reductase Inhibitors, Buckner, and Zetia [Ezetimibe] MEDICATIONS Current Outpatient Medications [...] tablets by mouth once daily. mv,jaci,iron,mn/folic acid/chol (TTSI-DQYT-QKEKR, PABA, ORAL) Take 1 tablet by mouth [...] which included preparing to see the patient, vdfc-lg-dzle patient care, completing clinical documentation, obtaining and/or reviewing separately obtained history, performing a medically appropriate examination, counseling and educating the pat ient/family/caregiver, and ordering medications, tests, or procedures. documented in this encounterMarietta Osteopathic Clinic07-03-2023 Miscellaneous Notes* Telephone Encounter - Priti Heck LPN - 03/19/2023 2:49 PM EDT Thi from [facility] asking that last office visit and EKg be faxed to Dr. Xuan Castillo. These were faxed to [phone]. documented in this encounterMarietta Osteopathic Clinic06-07-2023 Miscellaneous Notes* Telephone Encounter - Adriana Landry LPN - 02/21/2023 10:59 AM EDT Patient returned call and went over results, notes from Jeanette Berrios INSULATION BLOWER with understanding. Patient said she can not [...] AM EDT ----- Message from Jeanette Berrios APRN.MARINE O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 sent at 02/21/2023 7:45 AM EDT ----- Cholesterol levels about the same as last check. Continue to eat lower saturated fat diet and aim for at least 150 minutes of exercise per week. A1c remains the same in prediabetic range- continue lower carbohydrate diet and exercise as mentioned abo ve. The rest of her blood work is within acceptable ranges. Jeanette Berrios APRN.MARINE O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 documented in this encounterMarietta Osteopathic Clinic06-06-2023 Nurse Note* Krystin Zimmerman LPN - 02/20/2023 9:25 AM EDT ROSALVA BP: BP 163/84 P 47 #1 BP 167/90 P 47 #2 BP 166/80 P 50 #3 BP 164/89 P 47 #4 BP 164/90 P 46 #5 BP 153/84 P 46 #6 BP 166/81 P 47 Krystin Zimmerman LPN documented in this encounterMarietta Osteopathic Clinic06-06-2023 History of Present illness Narrative* Jeanette Berrios APRN.MARINE O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 - 02/20/2023 8:46 AM EDT 02/20/2023 Patient [...] 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 Johnson Dysphagia Dr. Stiles Ectopic 1991 GERD (gastroesophageal reflux disease) History of prediabetes Hyperlipidemia Hypertension Hypothyroidism Obesity (BMI 30.0-34.9) Other pulmonary embolism without acute cor pulmonale (HCC) Pneumonia due to [place] [address] virus Requiring intubation ALLERGIES Meagan Inhibitors, Codeine, Remeron [Mirtazapine], Symjcnr-Shn-Dov Reductase Inhibitors, Buckner, and Zetia [Ezetimibe] MEDICATIONS Current Outpatient Medications [...] by mouth three times daily. mv,jaci,iron,mn/folic acid/chol (HMOO-OYTN-NNPHF, PABA, ORAL) Take 1 tablet by mouth [...] - follow-up pending blood work Jeanette Berrios APRN.MARINE O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 Prescription instructions reviewed with patient as applicable. [...] which included preparing to see the patient, zidx-vc-xhcq patient care, completing clinical documentation, obtaining and/or reviewing separately obtained history, performing a medically appropriate examination, counseling and educating the pat ient/family/caregiver, and ordering medications, tests, or procedures. documented in this encounterMarietta [facility]opathic Clinic05-10-2023 History of Present illness Narrative* Barbara Salinas [...] 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 Johnson Dysphagia Dr. Stiles Ectopic 1991 GERD (gastroesophageal reflux disease) History of prediabetes Hyperlipidemia Hypertension Hypothyroidism Obesity (BMI 30.0-34.9) Other pulmonary embolism without acute cor pulmonale (HCC) Pneumonia due to [facility]- virus Requiring intubation Current Outpatient Medications Medication [...] tablets by mouth once daily. mv,jaci,iron,mn/folic acid/chol (FYPD-FMTX-FHJNP, PABA, ORAL) Take 1 tablet by mouth [...] Headache Remeron [Mirtazapin* Other: See Comments Fatigue Iyypiqk-Rfg-Ivr Red* Myalgia Buckner Unknown Zetia [Ezetimibe] Myalgia PAST SURGICAL HISTORY [...] Cancer Brother lung Stroke Maternal Grandmother or [place], patient unsure Coronary Artery Disease Maternal Grandfather [...] Merida DPM Podiatry [address] [facility] [id number] Dept: [phone] Dept * Barbara Salinas LPN - 01/24/2023 [...] toe. Barbara Salinas LPN documented in this encounter[facility]23 Instructions* Patient Instructions* Talat Merida - 01/24/2023 10:02 AM EDT Recommend gel pad while walking to help cushion the left 5th toe Powerstep Original Full length. Can purchase at [employer] here in [place], [employer] in [place] or [employer]. Also can find in [place] in [facility]. Powersteps can also be purchased online, [...] everything fits well together documented in this encounterM[facility]05-10-2023 History of Present illness Narrative* Antonia Simms [...] 24, 2023 8:50 AM documented in this encounterM[facility]01-06-2023 Miscellaneous Notes* Telephone Encounter - Rachael Baker [...] lifting. Jeanette Berrios APRN.DIA documented in this encounterM[facility]01-04-2023 History of Present illness Narrative* Dayo Cardoso [...] 20, 2022 9:58 AM documented in this encounterMarietta [facility]01-03-2023 Procedure note* Girish Lemos MD - 09/19/2022 9:48 AM EST After the risks and options of alternative treatments were reviewed, the lesion(s) located on Rightaxilla were treated with cryosurgery after prepping area with alcohol. A total of 3 lesion(s) were treated. Girish Lemos MD documented in this encounterMarietta [facility]01-03-2023 Instructions* Patient Instructions* Girish Lemos MD - [...] instructed by your physician, you may take rufc-ffg-ibpgubj pain medications as needed for discomfort. 5. [...] the office at . documented in this encounterM[facility]01-03-2023 History of Present illness Narrative* Girish Lemos [...] 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 Johnson Dysphagia Dr. Stiles Ectopic 1991 GERD (gastroesophageal reflux disease) History of prediabetes Hyperlipidemia Hypertension Hypothyroidism Obesity (BMI 30.0-34.9) Other pulmonary embolism without acute cor pulmonale (HCC) Pneumonia due to [facility] virus Requiring intubation Previous Surgical History PAST [...] Cancer Brother lung Stroke Maternal Grandmother or [place], patient unsure Coronary Artery Disease Maternal Grandfather No Known Problems Sister Patient Allergies ALLERGIES Allergen Reactions Meagan Inhibitors Rash Codeine Vomiting, Other: See Comments Headache Remeron [Mirtazapin* Other: See Comments Fatigue Uwrizib-Btw-Xxm Red* Myalgia Buckner Unknown Zetia [Ezetimibe] Myalgia Current Medications Current [...] and 3 months after surgery. mv,jaci,iron,mn/folic acid/chol (VUDW-JRTZ-PQVLZ, PABA, ORAL) Take 1 tablet by mouth [...] 1-15 Girish Lemos MD documented in this encounterMari[facility]12-23-2022 Miscellaneous Notes* Telephone Encounter - Jeanette Berrios [...] Scripts instead. Thank you. documented in this encounterMari[facility]12-07-2022 Miscellaneous Notes* Telephone Encounter - Rosario Tejada [...] medications. Jeanette Berrios APRN.DIA documented in this encounterMarietta [facility] Clinic12-06-2022 Instructions* Patient Instructions* Jeanette Berrios APRN.DIA - 08/22/2022 10:05 AM EST [employer] [...] your usual activities immediately. documented in this encounterMarietta [facility] Clinic12-06-2022 History of Present illness Narrative* Jeanette Berrios [...] 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 Johnson Dysphagia Dr. Stiles Ectopic 1991 GERD (gastroesophageal reflux disease) History of prediabetes Hyperlipidemia Hypertension Hypothyroidism Obesity (BMI 30.0-34.9) Other pulmonary embolism without acute cor pulmonale (HCC) Pneumonia due to COVID-19 virus Requiring intubation ALLERGIES Meagan Inhibitors, Codeine, Remeron [Mirtazapine], Gxwmsbx-Bcf-Lkc Reductase Inhibitors, Buckner, and Zetia [Ezetimibe] MEDICATIONS Current Outpatient Medications [...] not taking: Reported on 08/22/2022) mv,jaci,iron,mn/folic acid/chol (XJPJ-IFJQ-FGGMB, PABA, ORAL) Take 1 tablet by mouth [...] Abs Lymph 1.00 - 4.00 k/uL 1.37 Hand% % 11.0 Abs Hand <0.87 k/uL 1.67 (H) Eosin% % 0.0 Abs Eosin <0.46 k/uL 0.00 Baso% % 0.0 Abs Baso <0.11 k/uL 0.00 [place]% % 2.0 Myelo% % 1.0 Left Shift [...] ICD10: N94.10 - recommend she follow-up with [facility] 10. Abnormal vaginal bleeding in postmenopausal patient - ICD9: 627.1, ICD10: N95.0 - follow-up with [facility] Jeanette Berrios APRN.CNP Prescription instructions reviewed with [...] which included preparing to see the patient, tlnt-ud-mdtv patient care, completing clinical documentation, obtaining and/or reviewing separately obtained history, performing a medically appropriate examination, counseling and educating the pat ient/family/caregiver, and ordering medications, tests, or procedures. documented in this encounterMarietta [facility] Clinic11-18-2022 Miscellaneous Notes* Telephone Encounter - Jen Haroon Pss - 08/04/2022 2:25 PM EST Patient [...] advise. Jen Patiño Pss documented in this encounterMarietta [facility] Clinic11-09-2022 Miscellaneous Notes* Telephone Encounter - Rosie Mcintosh APRN.DIA - 07/26/2022 10:20 AM EST Patient says her symptoms are gone at this time. Patient was instructed if symptoms return that sheshould come back and have another urine sample done. documented in this encounterMarietta [facility] Clinic11-07-2022 Instructions* Patient Instructions* Jamaica Malone APRN.CNP - 07/24/2022 5:50 PM EST Use mycolog cream as needed for irritation Will send cultures and call with results and treatment needed documented in this encounterMarietta [facility] Clinic11-07-2022 History of Present illness Narrative* [place] Malone APRN.CNP - 07/24/2022 5:37 PM EST Images from the original note were not included. Subjective The history is provided by the patient. No associate professor of theatre was used. HPI Betsy Rodrigez is a [...] 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 Johnson Dysphagia Dr. Stiles Ectopic 1991 GERD (gastroesophageal reflux disease) History of prediabetes Hyperlipidemia Hypertension Hypothyroidism Obesity (BMI 30.0-34.9) Other pulmonary embolism without acute cor pulmonale (HCC) Pneumonia due to COVID-19 virus Requiring intubation I have confirmed and edited as necessary, the [facility] Review of Systems Constitutional: Negative for chills, fever and malaise/fatigue. Gastrointestinal: Negative for abdominal pain. Genitourinary: Positive for hematuria. Negative for dysuria, flank pain, frequency and urgency. Objective Physical Exam Vitals and nursing note reviewed. Exam conducted with a drinking water technician present. Constitutional: Appearance: Normal appearance. HENT: Mouth/Throat: [...] evaluation. [place] Malone APRN.CNP documented in this encounterMarietta [facility] Clinic11-07-2022 Miscellaneous Notes* Telephone Encounter - Jeanette Berrios APRN.CNP - 07/24/2022 4:27 PM EST Reviewed. Jeanette Berrios APRN.CNP * Telephone Encounter - Phylicia Heredia RN - 07/24/2022 4:18 PM EST Patient calls for urinary symptoms(urgency, painful urination, and blood in urine). Nurse triage completed. Protocol recommends see provider within 24 hours. Appointment offered. Patient decided to [facility] to [facility] and treatment. Reason for Disposition [...] discharge or genital sores. Protocols used: Urinary Vvtijazi-UFGAT-DR, Urination Pain - Bgbpdx-IGXBK-DE documented in this encounterMarietta [facility] Clinic07-07-2022 History of Present illness Narrative* Girish Lemos [...] III (moderate) (HCC) Colon polyp tubular adenoma [address] 07/16 to 08/17 DDD (degenerative disc [...] Cancer Brother lung Stroke Maternal Grandmother or [place], patient unsure Coronary Artery Disease Maternal Grandfather No Known Problems Sister Patient Allergies ALLERGIES Allergen Reactions Meagan Inhibitors Rash Codeine Vomiting, Other: See Comments Headache Remeron [Mirtazapin* Other: See Comments Fatigue Sjdbmpy-Zmg-Ipd Red* Myalgia Buckner Unknown Zetia [Ezetimibe] Myalgia Current Medications Current [...] capsules by mouth once daily. mv,jaci,iron,mn/folic acid/chol (PEWG-MPYU-SDXMH, PABA, ORAL) Take 1 tablet by mouth [...] SPRAY,SUSPENSION Girish Lemos MD documented in this encounterMarietta [facility] Clinic07-07-2022 Miscellaneous Notes* Telephone Encounter - Girish Lemos [...] down there. Protocols used: COUGH - ACUTE MENBDODFXW-LJBUO-RZ documented in this encounterMarietta [facility] Clinic06-08-2022 Miscellaneous Notes* Telephone Encounter - Chacho Ambriz LPN - 02/22/2022 11:33 AM EDT Spoke with pt and information listed below given. Pt verbalizes understanding. Chacho Ambriz LPN * Telephone Encounter - Jeanette Berrios APRN.CNP - 02/22/2022 8:54 AM EDT She will need to check with her insurance company as see what is covered. Jeanette Berrios APRN.CNP * Telephone Encounter - Bailee [...] $10 each time she gets it from [facility]. Patient aware RX escripted to mail away pharmacy. No need to notify patient. Bailee Zacarias Pss documented in this encounterMarietta [facility] Clinic03-11-2022 History of Present illness Narrative* Antonia Simms [...] 25, 2021 11:18 AM documented in this encounterMarietta Osteopathic ClinicConsult note Author Huan Billy [facility] Note Date/Time February 16, 2025 8:12a [facility] Medical Records Department [address] [place] [address] Pre-Anesthesia Evaluation 02/16/25 0809 MR#: [id number] Acct: [id number] Name: BETSY RODRIGEZ Rep #:[id number] : 1955 69 From: Huan Billy MD PCP: Dr. 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 Female Yes 02/11/25 15:02 HX of Motion [...] 02/16/25 07:38 Respiratory Assessment Respiratory Assessment - 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: Respiratory Tract Infection Hx - 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 Hx Respiratory Tract Infection No 02/11/25 15:02 STOP Sleep Apnea STOP Sleep Apnea - 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: STOP Sleep Apnea - 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 Hx Hypertension Yes: CONTROLLED WITH MED 02/11/25 [...] Tobacco Use History Tobacco Use 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: Tobacco Use 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 Tobacco Use Smoking Status Former smoker 02/11/25 15:02 Hx Tobacco Use No 02/11/25 15:02 Years Smoking Packs Smoked per Day Smoking Cessation Date was Yes - quit smoking within 15 02/11/25 15:02 within the last 15 years years Hx Smoking Cessation Date 09/17/15 02/11/25 15:02 Hx Smoking Cessation No 02/11/25 15:02 Counseling Hematologic Medial History 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 Hx of Blood Transfusion No 02/11/25 15:02 [...] confused, unrespo /Reproduction History /Reproductive 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: /Reproductive Hx- 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 Hx Now No 02/11/25 15:02 Gestational Age [...] Allergy prednisone AdvReac Other Verified 02/16/25 07:36 Ulhfntr-AKU-XlA Reductase AdvReac cramps Verified 02/16/25 07:36 Inhibitor (Xikpeqp-Kxa-Aaw Reductase Inhibitor) Family History Mother Cancer Hx [...] MD Cosigner Signature: Date CC: ~ Signed [facility] Work Phone: Consult note Author Daniel Sevilla [facility] Note Date/Time February 16, 2025 8:55a [facility] Medical Records Department [address] [place] [address] Anesthesia Postop Eval I 02/16/25 0854 MR#: [id number] Acct: [id number] Name: BETSY RODRIGEZ Rep #:[id number] : 1955 69 From: Daniel Sevilla PCP: Dr. Fabricio Lemos MD Status :REG SDC Y Race: C Location: [place] [address] Anesthesia: Postop Eval I Current Vital Signs [...] by Daniel Sevilla > Date _ Daniel Sevilla Cosigner Signature: Date CC: ~ Signed [facility] Work Phone: Consult note Author Huan Billy [facility] Note Date/Time February 16, 2025 9:34a m [facility] Medical Records Department [address] [place] [address] Anesthesia Postop Eval II 02/16/25900 MR#: [id number] Acct: [id number] Name: BETSY RODRIGEZ Rep #:[id number] : 1955 69 From: Huan Billy MD PCP: Dr. Fabricio Lemos MD Status :REG [facility] Y Race: C Location: [place] [address] Anesthesia Postop Eval I Sum Postop Eval [...] MD Cosigner Signature: Date CC: ~ Signed [facility] Work Phone: Discharge summary Author Jassi Borden [facility] Note Date/Time January 10, 2025 2:2 8pm [facility] Medical Records Department [address] [place] [address] Instructions for Home/Discharge Instructions 01/10/25 1425 MR#: [id number] Acct: [id number] Name: ELIABETSY M Rep #:[id number] : [...] can be placed): Home, Self Care 01/10/25 0085<Electronically signed by Jassi Borden MD>Jassi Borden MD CC: Dr. Fabricio Lemos MD; Dr. Estrella Cabezas MD ~ Signed [facility] Work Phone: Discharge summary Author Jassi Borden [facility] Note Date/Time January 10, 2025 2:3 9pm [facility] Medical Records Department [address] [place] [address] Discharge Summary 01/10/258 MR#: [id number] Acct: [id number] Name: BETSY RODRIGEZ Rep #:[id number] : 1955 69 From: Jassi Schneider PCP: Dr. Fabricio Lemos MD Status :ADM FARIBA Location: [facility] [place] [address] Providers Date of Admission: 01/09/25 Date of [...] 01/10/25 14:09 RMA (Rec: 01/10/25 14:09 RMA [id number]) Nutrition Malnutrition Evidence of Yes Malnutrition Exists [...] 93.2 H, Lymph % (Auto) 4.7 L, Hand % (Auto) 0.2, Eos % (Auto) 0.0, [...] to congestion and edema. Reading Location: [facility] Echocardiogram 01/09/25 20:22 Interpretation Summary The LV systolic function is normal. EF is 65 %. The global longitudinal strain = -24.6 % (normal). Ordering Physician: Estrella Cabezas Referring Physician: Esrtella Cabezas Performed By: Sesar Ferrera, [facility] D/C Instructions Discharge Diet: No restrictions Weight [...] Self Care Charges/Coding Visit Charges Inpatient E&M: 60335 Disch Hosp >30min 01/10/25 1439 <Electronically signed by Jassi Borden MD> Cosigner Signature (if applicable): CC: Dr. Fabricio Lemos MD; Dr. Jassi Borden MD~ Signed [facility] Work Phone: Evaluation note* Diagnosis Onset Date Resolution Status Respiratory insufficiency ac [place] Smoking greater than 40 pack years acute [facility] Work Phone: Evaluation note* Diagnosis Suspected COVID-19 virus infection- Primary Non-seasonal allergic rhinitis, unspecified trigger documented in this encounter [facility] note* Diagnosis Gross hematuria- Primary Acute vaginitis Vaginitis and vulvovaginitis, unspecified Vulvar irritation Other specified noninflammatory disorder of vulva and perineum documented in this encounter [facility] note* Diagnosis Acquired hypothyroidism Unspecified hypothyroidism Essential hypertension Unspecified essential hypertension documented in this encounter [facility] note* Diagnosis Encounter for screening mammogram for breast cancer documented in this encounter [facility] note* Diagnosis Essential hypertension- Primary Unspecified [...] in postmenopausal patient [facility]* Diagnosis Ringworm of body Dermatophytosis of the body Acquired hypothyroidism Unspecified hypothyroidism Essential hypertension Unspecified essential hypertension [facility]* Diagnosis Onset Date Resolution Status Influenza acute [facility] Work Phone: Evaluation note* Diagnosis Skin tag- Primary Unspecified hypertrophic and atrophic condition of skin S/P cryotherapy of skin lesion [facility]* Diagnosis Onset Date Resolution Status Bronchiectasis acute Smoking greater than 40 pack years [facility] Work Phone: Evaluation note* Diagnosis Hammertoe of left foot- Primary Pain in toe of left foot Pain in limb Other acute pulmonary embolism, unspecified whether acute cor pulmonale present (HCC) documented [facility] encounter [facility]* Diagnosis Essential hypertension- Primary Unspecified essential hypertension Prediabetes Other abnormal glucose Acquired hypothyroidism Unspecified hypothyroidism Hyperlipidemia, unspecified hyperlipidemia type Bradycardia Other specified cardiac dysrhythmias First degree AV block First degree atrioventricular block Stage 3 chronic kidney disease, unspecified whether stage 3a or 3b CKD (HCC) [facility]* Diagnosis Primary hypertension- Primary Unspecified essential hypertension Bradycardia Other specified cardiac dysrhythmias Skin eruption Rash and other nonspecific skin eruption [facility]* Diagnosis Acquired hypothyroidism Unspecified hypothyroidism Essential hypertension Unspecified essential hypertension [facility]* Diagnosis Screening for colon cancer- Primary Special screening for malignant neoplasms, colon documented [facility] this [facility]* Diagnosis Onset Date Resolution Status Bronchiectasis acute COVID-19 acute Pulmonary fibrosis acute Pulmonary hypertension acute Smoking greater than 40 pack years [facility] Work Phone: Evaluation note* Diagnosis Essential hypertension- Primary Unspecified essential hypertension Encounter for immunization Need for other specified prophylactic vaccination against single bacterial disease Prediabetes Other abnormal glucose Acquired hypothyroidism Unspecified hypothyroidism Stage 3 chronic kidney disease, unspecified whether stage 3a or 3b CKD (HCC) First degree AV block First degree atrioventricular block documented in this encounter [facility] note* Diagnosis Pain Generalized pain documented in this encounter [facility] note* Diagnosis Screening for osteoporosis Special screening for osteoporosis documented in this encounter [facility] note* Diagnosis Encounter for screening mammogram for breast cancer documented in this encounter [facility] note* Diagnosis Acquired hypothyroidism Unspecified hypothyroidism Essential hypertension Unspecified essential hypertension documented in this encounter [facility] note* Diagnosis Essential hypertension- Primary Unspecified essential hypertension Non-seasonal allergic rhinitis, unspecified trigger Acquired hypothyroidism Unspecified hypothyroidism Hyperlipidemia, unspecified hyperlipidemia type Stage 3 chronic kidney disease, unspecified whether stage 3a or 3b CKD (HCC) Pulmonary hypertension (HCC) Other chronic pulmonary heart diseases Muscle cramps Cramp of limb documented in this encounter [facility] noteNo assessment information availableWPar[facility] Work Phone: [facility]* Diagnosis Essential hypertension Unspecified essential hypertension documented in this encounter [facility] note* Diagnosis Fever, unspecified fever cause Diarrhea, unspecified type Nausea Nausea alone Cough documented in this encounter [facility] note* Diagnosis Pneumonia due to infectious organism, unspecified laterality, unspecified part of lung documented in this encounter [facility] note* Diagnosis Encounter for screening mammogram for breast cancer documented in this encounter [facility] note* Diagnosis Acquired hypothyroidism Unspecified hypothyroidism documented in this encounter [facility] note* Diagnosis Essential hypertension- Primary Unspecified [...] hypothyroidism Unspecified hypothyroidism documented in this encounter [facility] note* Diagnosis Essential hypertension Unspecified essential hypertension documented in this encounter [facility] note* Diagnosis Primary hypertension- Primary Unspecified essential hypertension documented in this encounter [facility] note* Diagnosis Generalized abdominal pain- Primary Abdominal pain, generalized Diarrhea, unspecified type Nausea Nausea alone Generalized abdominal pain Abdominal pain, generalized Diarrhea, unspecified type Nausea Nausea alone documented in this encounter [facility] note* Diagnosis Generalized abdominal pain Abdominal pain, generalized Diarrhea, unspecified type Nausea Nausea alone documented [facility]* Diagnosis Liver masses- Primary Unspecified disorder of liver RUQ abdominal pain Abdominal pain, right upper quadrant Nausea and vomiting, unspecified vomiting type Diarrhea, unspecified type [facility]* Diagnosis Abnormal MRI, liver- Primary Nonspecific (abnormal) findings on radiological and other examination of biliary tract documented [facility] this encounter [facility]* Diagnosis Liver masses Unspecified disorder of liver documented [facility] this [facility]* Diagnosis Liver masses Unspecified disorder of liver documented in this encounter [facility]* Diagnosis Generalized abdominal pain- Primary Abdominal [...] rectum and anus documented [facility] this [facility]* Diagnosis Chest pain, unspecified type- Primary [...] Loss of weight documented [facility] this [facility]* Diagnosis Viral URI with cough- Primary Acute upper respiratory infections of unspecified site Immunocompromised state (HCC) Unspecified immunity deficiency Viral URI with cough Acute upper respiratory infections of unspecified site [facility]* Diagnosis Viral URI with cough Acute upper respiratory infections of unspecified site documented [facility] this [facility]* Diagnosis Acquired hypothyroidism Unspecified hypothyroidism documented in this [facility]* Diagnosis Essential hypertension Unspecified essential hypertension [facility]* Diagnosis Essential hypertension Unspecified essential hypertension [facility] Additional Instructions You were given IV fluids for dehydration. Continue taking your home nausea and pain medications. Follow-up with the oncologist at your appointment tomorrow.[facility] Work Phone: Hospital Discharge instructionsAdditional Instructions Recommend you follow-up with your primary care physician to order outpatient MRI of lumbar spine. Return to the ER for worsening pain, weakness in extremities, loss of bowel or bladder function, or condition worsen anyway.[facility] Work Phone: Hospital Discharge instructionsAdditional Instructions You are given 2 separate doses of 10 mg IV morphine in the ED. CT scan abdomen pelvis no obstruction. Labs are stable. Discussed with your palliative team pain medicine adjustments with pending radiation treatment to your spine in 2 days.[facility] Work Phone: Reason for referral (narrative)* Diagnostic Procedure Only (Routine) - Pending Review Specialty Diagnoses / Procedures Referred By Zaida ayers Referred To Contact BR IMAGING Diagnoses Encounter for screening mammogram for breast cancer Procedures LYN SCREENING SCREENING MAMMOGRAPHY BI 2-VIEW BREAST INC [facility] Girish Lemos MD [address] [place] [address] Br Imaging [address] [place] [address] Referral ID Status Reason Start Date Expiration Date Visits Requested Visits Authorized [id number] Pending Review Auto-Generat ed Referral 08/17/2022 09/16/2023 1 1 [facility] for referral (narrative)* Outpatient Procedure (Routine) - Closed Specialty Diagnoses / Procedures Referred By Zaida ayers Referred To [facility] Diagnoses Bradycardia Procedures ECG COMPLETE ECG ROUTINE ECG W/LEAST 12 LDS W/I&R PodlogJeanette gibbons APRN.CNP [address] [place] [address] [facility] [place] [address] [place] [address] Referral ID Status Reason Start Date Expiration Date V isits Requested Visits Authorized [id number] Closed Auto-Generate d Referral 02/20/2023 02/20/2024 1 1 * Consult, Test, Treat (Routine) - Authorized Specialty Diagnoses / Procedures Referred By Contac t Referred To Contact Cardiology Diagnoses Bradycardia First degree AV block Procedures CONSULT TO CARDIOLOGY OFFICE/OUTPATIENT NEW HIGH MDM 60-74 MINUTES Jeanette Berrios APRN.CNP [address] [place] [address] Referral ID Status Reason Start Date Expiration Date Visits Requested Visits Authorized [id number] Authorized PCP Requested Referral 02/20/2023 02/20/2024 1 1 [facility] for referral (narrative)* Diagnostic Procedure Only (Routine) - Closed Specialty Diagnoses / Procedures Referred By Zaida t Referred To Contact XR IMAGING Diagnoses Pain Procedures XR FOOT GENERAL 3V AP/LAT/OBL LEFT RADEX FOOT COMPLETE MINIMUM 3 VIEWS Talat Merida [address] [place] [address] [place] [address] Referral ID Status Reason Start Date Expiration Date V isits Requested Visits Authorized [id number] Closed Auto-Generate d Referral 01/04/2023 02/03/2024 1 1 [facility] for referral (narrative)* Diagnostic Procedure Only (Routine) - Pending Review Specialty Diagnoses / Procedures Referred By Zaida ayers Referred To Contact BR IMAGING Diagnoses Encounter for screening mammogram for breast cancer Procedures LYN SCREENING SCREENING MAMMOGRAPHY BI 2-VIEW BREAST INC CAD Girish Lemos MD [address] [place] [address] Br Imaging [address] [place] [address] Referral ID Status Reason Start Date Expiration Date Visits Requested Visits Authorized [id number] Pending Review Auto-Generat ed Referral 07/25/2023 08/23/2024 1 1 [facility] for referral (narrative)* Diagnostic Procedure Only (Routine) - New Request Specialty Diagnoses / Procedures Referred By Zaida t Referred To Contact BR IMAGING Diagnoses Encounter for screening mammogram for breast cancer Procedures LYN SCREENING W ANT SCREENING DIGITAL BREAST TOMOSYNTHESIS BI SCREENING MAMMOGRAPHY BI 2-VIEW BREAST INC CAD Girish Lemos MD [address] [place] [address] Br Imaging [address] [place] [address] Referral ID Status Reason Start Date Expiration Date Visits Requested Visits Authorized [id number] New Request Auto-Generat ed Referral 06/25/2024 07/25/2025 1 1 [facility]No reason for referral information availableWParma [facility] Work Phone: Reason for visit Narrative* Diagnostic Procedure Only (Routine) - Closed Specialty Diagnoses / Procedures Referred By Zaida t Referred To Contact XR IMAGING Diagnoses Pain Procedures XR FOOT GENERAL 3V AP/LAT/OBL LEFT RADEX FOOT COMPLETE MINIMUM 3 VIEWS Talat Merida[address] [place] [address] [place] [address] Referral ID Status Reason Start Date Expiration Date V isits Requested Visits Authorized [id number] Closed Auto-Generate d Referral 01/04/2023 02/03/2024 1 1 [facility] Summary Purpose Family History No Family History Records Found Relationship Condition Age at Onset Recorded Date/T chris mother Malignant neoplasm Unknown father Malignant neoplasm Unknown Advance Directives No Advanced Directives Records Found Advance Directive Response Recorded Date/ Time Advance Directives No October 11:59pm Living Will No November 17, 2021 12:21pm Power of Planning Coordinator No November 17 12:21pm Advance Directive Response Recorded Date/ Time Advance Directives No October 10:59pm Living Will No September 13, 2 022 6:53am Power of Planning Coordinator No September 13, 2022 6:53am Advance Directive Response Recorded Date/ Time Advance Directives No October 11:59pm Living Will No September 13, 2 022 7:53am Power of Planning Coordinator No September 13, 2022 7:53am Advance Directive Response Recorded Date/ Time Living Will No May 28, 2024 11:58am Power of Planning Coordinator No May 11:58am Living Will No November 12 2:53pm Power of Planning Coordinator No November 12, 2024 2:53pm Living Will No November 23, 2024 4:39pm Power of Planning Coordinator No November 23 4:39pm Advance Directives No October 11:59pm Advance Directive Response Recorded Date/ Time Living Will No May 28, 2024 11:58am Do you have a Healthcare Power of Planning Coordinator? No May 28, 2024 11:58am Advance Directives No December 09 11:48am Living Will No November 12 2:53pm Do you have a Healthcare Power of Planning Coordinator? No November 12, 2024 2:53pm Living Will No November 28, 2024 8:45am Do you have a Healthcare Power of Planning Coordinator? No November 28, 2024 8:45am Living Will No November 23, 2024 4:39pm Do you have a Healthcare Power of Planning Coordinator? No November 23, 2024 4:39pm Advance Directive Response Recorded Date/ Time Living Will No May 28, 2024 11:58am Do you have a Healthcare Pow er of Planning Coordinator? No May 28, 2024 11:58am Advance Directives No December 09 11:48am Living Will No November 12 2:53pm Do you have a Healthcare Pow er of Planning Coordinator? No November 12, 2024 2:53pm Living Will No November 28, 2024 8:45am Do you have a Healthcare Pow er of Planning Coordinator? No November 28, 2024 8:45am Living Will No November 23, 2024 4:39pm Do you have a Healthcare Pow er of Planning Coordinator? No November 23, 2024 4:39pm Living Will Yes December 11, 2024 8:45am Do you have a Healthcare Pow er of Planning Coordinator? Yes December 11, 2024 8:45am Name of Medical Power of Planning Coordinator SON AND DAUGHT ER December 11, 2024 8:45am Advance Directive Response Recorded Date/ Time Living Will No May 28, 2024 11:58am Do you have a Healthcare Pow er of Planning Coordinator? No May 28, 2024 11:58am Living Will No November 12 025 2:53pm Do you have a Healthcare Pow er of Planning Coordinator? No November 12, 2024 2:53pm Living Will No January 09, 2025 2:14pm Do you have a Healthcare Pow er of Planning Coordinator? No January 09, 2025 2:14pm Advance Directives No January 09 025 2:14pm Living Will No November 23, 2024 4:39pm Do you have a Healthcare Pow er of Planning Coordinator? No November 23, 2024 4:39pm Living Will Yes December 11, 2024 8:45am Do you have a Healthcare Pow er of Planning Coordinator? Yes December 11, 2024 8:45am Name of Medical Power of Planning Coordinator SON AND DAUGHT ER December 11, 2024 8:45am Do you have a Healthcare Pow er of Planning Coordinator? Yes January 09, 2025 8:02pm Name of Medical Power of Planning Coordinator Goyo Elia laguerre January 09, 2025 4:01pm Advance Directive Response Recorded Date/ Time Living Will No May 28, 2024 11:58am Do you have a Healthcare Pow er of Planning Coordinator? No May 28, 2024 11:58am Living Will No November 12 2:53pm Do you have a Healthcare Pow er of Planning Coordinator? No November 12, 2024 2:53pm Living Will No February 06, 2025 1 2:18pm Do you have a Healthcare Pow er of Planning Coordinator? No February 06, 2025 12:18pm Advance Directives No February 06 12:18pm Do you have a Healthcare Pow er of Planning Coordinator? Yes February 11, 2025 3:02pm Living Will No November 23, 2024 4:39pm Do you have a Healthcare Pow er of Planning Coordinator? No November 23, 2024 4:39pm Living Will Yes December 11, 2024 8:45am Do you have a Healthcare Pow er of Planning Coordinator? Yes December 11, 2024 8:45am Name of Medical Power of Planning Coordinator SON AND DAUGHT ER December 11, 2024 8:45am Do you have a Healthcare Pow er of Planning Coordinator? Yes January 09, 2025 8:02pm Name of Medical Power of Planning Coordinator Goyo laguerre January 09, 2025 4:01pm Advance Directive Response Recorded Date/ Time Living Will No May 28, 2024 11:58am Do you have a Healthcare Pow er of Planning Coordinator? No May 28, 2024 11:58am Living Will No November 12 2:53pm Do you have a Healthcare Pow er of Planning Coordinator? No November 12, 2024 2:53pm Living Will No February 24, 2025 8:19am Do you have a Healthcare Pow er of Planning Coordinator? No February 24, 2025 8:19am Advance Directives No February 24 8:19am Do you have a Healthcare Pow er of Planning Coordinator? Yes February 11, 2025 3:02pm Living Will No November 23, 2024 4:39pm Do you have a Healthcare Pow er of Planning Coordinator? No November 23, 2024 4:39pm Living Will Yes December 11, 2024 8:45am Do you have a Healthcare Pow er of Planning Coordinator? Yes December 11, 2024 8:45am Name of Medical Power of Planning Coordinator SON AND DAUGHT ER December 11, 2024 8:45am Do you have a Healthcare Pow er of Planning Coordinator? Yes January 09, 2025 8:02pm Name of Medical Power of Planning Coordinator Goyo laguerre January 09, 2025 4:01pm Advance Directive Response Recorded Date/ Time Living Will No February 27, 2025 2:42pm Do you have a Healthcare Pow er of Planning Coordinator? No February 27, 2025 2:42pm Advance Directives No February 27 2:42pm Do you have a Healthcare Pow er of Planning Coordinator? Yes February 11, 2025 3:02pm Living Will No November 23, 2024 4:39pm Do you have a Healthcare Pow er of Planning Coordinator? No November 23, 2024 4:39pm Living Will Yes December 11, 2024 8:45am Do you have a Healthcare Pow er of Planning Coordinator? Yes December 11, 2024 8:45am Name of Medical Power of Planning Coordinator SON AND DAUGHT ER December 11, 2024 8:45am Do you have a Healthcare Pow er of Planning Coordinator? Yes January 09, 2025 8:02pm Name of Medical Power of Planning Coordinator Goyo laguerre January 09, 2025 4:01pm Advance Directive Response Recorded Date/ Time Living Will No March 19, 2025 2 :43pm Do you have a Healthcare Pow er of Planning Coordinator? No March 19, 2025 2:43pm Advance Directives No March 19 2:43pm Do you have a Healthcare Pow er of Planning Coordinator? Yes February 11, 2025 3:02pm Do you have a Healthcare Pow er of Planning Coordinator? Yes April 05, 2025 8:09pm Living Will Yes December 11, 2024 8:45am Do you have a Healthcare Pow er of Planning Coordinator? Yes December 11, 2024 8:45am Name of Medical Power of Planning Coordinator SON AND DAUGHT ER December 11, 2024 8:45am Do you have a Healthcare Pow er of Planning Coordinator? Yes January 09, 2025 8:02pm Name of Medical Power of Planning Coordinator Goyo laguerre January 09, 2025 4:01pm Advance Directive Response Recorded Date/ Time Living Will No April 06, 2025 1:25pm Do you have a Healthcare Pow er of Planning Coordinator? No April 06, 2025 1:25pm Advance Directives No April 06 1:25pm Do you have a Healthcare Pow er of Planning Coordinator? Yes February 11, 2025 3:02pm Do you have a Healthcare Pow er of Planning Coordinator? Yes April 05, 2025 8:09pm Living Will Yes December 11, 2024 8:45am Do you have a Healthcare Pow er of Planning Coordinator? Yes December 11, 2024 8:45am Name of Medical Power of Planning Coordinator SON AND DAUGHT ER December 11, 2024 8:45am Do you have a Healthcare Pow er of Planning Coordinator? Yes January 09, 2025 8:02pm Name of Medical Power of Planning Coordinator Goyo laguerre January 09, 2025 4:01pm Advance Directive Response Recorded Date/ Time Living Will No April 06, 2025 1:25pm Do you have a Healthcare Pow er of Planning Coordinator? No April 06, 2025 1:25pm Advance Directives No April 06 1:25pm Do you have a Healthcare Pow er of Planning Coordinator? Yes February 11, 2025 3:02pm Do you have a Healthcare Pow er of Planning Coordinator? Yes April 05, 2025 8:09pm Do you have a Healthcare Pow er of Planning Coordinator? Yes January 09, 2025 8:02pm Name of Medical Power of Planning Coordinator Goyo damonband January 09, 2025 4:01pm Advance Directive Response Recorded Date/ Time Living Will No April 06, 2025 1:25pm Do you have a Healthcare Pow er of Planning Coordinator? No April 06, 2025 1:25pm Advance Directives No April 06 1:25pm Do you have a Healthcare Pow er of Planning Coordinator? Yes February 11, 2025 3:02pm Do you have a Healthcare Pow er of Planning Coordinator? Yes April 05, 2025 8:09pm Do you have a Healthcare Pow er of Planning Coordinator? No April 20, 2025 1:57am Do you have a Healthcare Pow er of Planning Coordinator? 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, [...] lymph node metastasis present M 2024 2:38pm 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 [...] 8pm Regional lymph node metastasis present M [facility] 2024 2:38pm 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 [...] IV CONTRAST ONLY Hari e 2024 6:55am Chief Complaint Admit Date 3 M FU/discuss CT results November 03, 2024 11:20am LUNG November 11, 2024 8:23am INTRACTABLE ABDOMINAL PAIN October 12:58pm INTRACTABLE ABDOMINAL PAIN October 1:06pm INTRACTABLE ABDOMINAL PAIN October 6:39pm INTRACTABLE ABDOMINAL PAIN October 4:39pm INTRACTABLE ABDOMINAL PAIN November 15 12:05pm WEAKNESS November 23, 2024 3:39 pm LUNG CA-PENDING PATHOLOGY November 24 2:38pm TOX CHECK - LABS March 18th, 2025 12: 19pm CANCER SCREEN December 03, 2024 [...] am Regional lymph node metastasis present J 2024 7:52am Chief Complaint Admit Date WEAKNESS [...] grade neuroendocrine carcinoma of l litzy March 10th, 2025 2:38pm 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 24, 2024 2:38pm Metastasis to bone November 24, 2024 2:3 8pm Metastasis to liver November 24, 2024 2:3 8pm Regional lymph node metastasis present M [facility] 2024 2:38pm Jaundice November 24, 2024 2:3 [...] 1am Regional lymph node metastasis present M [facility] 2024 9:51am Encounter for insertion of [...] BONE METS April 13, 2025 10:5 1am Chief Complaint Admit Date SUTURE REMOVAL December 22, 2024 1:00 pm [...] L Hip April 05, 2025 7:37 pm 3 WKS - LABS - ATEZO April 06, 2025 9:3 4am LEFT HIP PAIN April 06, 2025 2:40 pm CONSULT - BONE METS April 13, 2025 10:5 1am . 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 April 27, 2025 9:46am Hypercalcemia of malignancy April 27, 2025 9:46am Metastasis to bone April 27, 2025 9: 46am Metastasis to liver April 27, 2025 9: 46am Regional lymph node metastasis present A [facility] 2024 9:46am Metastasis to bone April 28, 2025 10 :48am Chief Complaint Admit Date 3 WKS - LABS - ATEZO/CARBO/ETOP January [...] L Hip April 05, 2025 7:37 pm 3 WKS - LABS - ATEZO April 06, 2025 9:3 4am LEFT HIP PAIN April 06, 2025 2:40 pm CONSULT - BONE METS April 13, 2025 10:5 1am abd pain April 20, 2025 1:5 6am 3 WKS - LABS - ATEZO April 27, 2025 9 :46am OTV April 28, 2025 10 :48am 2 DAYS - LABS April 29, 2025 9: 00am . 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 April 29, 2025 9:00am Hypercalcemia of malignancy April 29, 2025 9:00am Metastasis to bone April 29, 2025 9: 00am Metastasis to liver April 29, 2025 9: 00am Regional lymph node metastasis present A [facility] 2024 9:00am Reason for Referral Specialty Diagnoses / Procedures Referred By Contac t Referred To Contact Gastroenterology Diagnoses Screening for colon cancer Procedures CONSULT TO GASTROENTEROLOGY OFFICE/OUTPATIENT [facility] 60-74 MINUTES Girish Lemos MD [address] [id number] Referral ID Status Reason Start Date Expiration Date Visits Requested Visits Authorized [id number] Authorized PCP Requested Referral 05/07/2023 05/06/2024 1 1 Specialty Diagnoses / Procedures Referred By Contac t Referred To Contact CT IMAGING Diagnoses Generalized abdominal pain Diarrhea, unspecified type Nausea Procedures CT ABD/PEL W IVCON CT ABD & PELVIS W/CONTRAST 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, 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 [id number] Imaging [facility] Referral ID Status Reason Start Date Expiration Date V isits Requested Visits Authorized [id number] Closed Auto-Generate d Referral 10/16/2024 11/15/2025 1 1 Specialty Diagnoses / Procedures Referred By Contac t Referred To Contact Oncology Diagnoses Liver masses Procedures CONSULT TO ONCOLOGY OFFICE/OUTPATIENT [facility] 60 MINUTES Girish Lemos MD [address] [place] [address] Referral ID Status Reason Start Date Expiration Date Visits Requested Visits Authorized [id number] Authorized PCP Requested Referral 10/17/2024 10/17/2025 1 1 Specialty Diagnoses / Procedures Referred By Contac t Referred To Contact Diagnoses Nausea and vomiting, unspecified vomiting type Girish Lemos MD [address] [place] [address] Referral ID Status Reason Start Date Expiration Date Visits Re quested Visits Authorized [id number] Closed 1 1 Specialty Diagnoses / Procedures Referred By Contac t Referred To Contact CT IMAGING Diagnoses Liver masses Procedures CT CHEST W IVCON DIAGNOSTIC COMPUTED TOMOGRAPHY THORAX W/CONTRAST Girish Lemos MD [address] [place], [place] [id number] Ct Imaging [place] [address] Referral ID Status Reason Start Date Expiration Date Visits Requested Visits Authorized [id number] Authorized Auto-Generat ed Referral 10/17/2024 11/16/2025 1 1 Specialty Diagnoses / Procedures Referred By Contac t Referred To Contact Diagnoses Abnormal MRI, liver Procedures CONSULT TO HEPATOLOGY OFFICE/OUTPATIENT [facility] 60 MINUTES Oleg Fields APRN.CNP [address] [id number] Referral ID Status Reason Start Date Expiration Date Visits Requested Visits Authorized [id number] Authorized PCP Requested Referral 10/16/2024 10/16/2025 1 1 Additional Source Comments INFORMATION SOURCE (unrecogn ized section and content) DATE CREATED AUTHOR 09/10/2020 [facility] DATE CREATED AUTHOR AUTHOR'S ORGANIZ ATION 06/14/2024 [facility] DATE CREATED AUTHOR AUTHOR'S ORGANIZ ATION 01/31/2025 [facility] DATE CREATED AUTHOR AUTHOR'S ORGANIZ ATION 04/29/2025 [facility] Goals (unrecognized section and content) Goals may [...] or prosecute any alcohol or drug abuse patient.[facility] the event this information is protected by the Federal Confidentiality of Alcohol and Drug Abuse Patient Records regulations: The Federal rules restrict any use of the information to criminally investigate or prosecute any alcohol or drug abuse patient.[facility] the event this information is protected by the Federal Confidentiality of Alcohol and Drug Abuse Patient Records regulations: The Federal rules restrict any use of the information to criminally investigate or prosecute any alcohol or drug abuse patient.[facility] the event this information is protected by the Federal Confidentiality of Alcohol and Drug Abuse Patient Records regulations: The Federal rules restrict any use of the information to criminally investigate or prosecute any alcohol or drug abuse patient.[facility] the event this information is protected by the Federal Confidentiality of Alcohol and Drug Abuse Patient Records regulations: The Federal rules restrict any use of the information to criminally investigate or prosecute any alcohol or drug abuse patient.[facility] the event this information is protected by the Federal Confidentiality of Alcohol and Drug Abuse Patient Records regulations: The Federal rules restrict any use of the information to criminally investigate or prosecute any alcohol or drug abuse patient.[facility] the event this information is protected by the Federal Confidentiality of Alcohol and Drug Abuse Patient Records regulations: The Federal rules restrict any use of the information to criminally investigate or prosecute any alcohol or drug abuse patient.[facility] the event this information is protected by the Federal Confidentiality of Alcohol and Drug Abuse Patient Records regulations: The Federal rules restrict any use of the information to criminally investigate or prosecute any alcohol or drug abuse patient.[facility] the event this information is protected by the Federal Confidentiality of Alcohol and Drug Abuse Patient Records regulations: The Federal rules restrict any use of the information to criminally investigate or prosecute any alcohol or drug abuse patient.[facility] the event this information is protected by the Federal Confidentiality of Alcohol and Drug Abuse Patient Records regulations: The Federal rules restrict any use of the information to criminally investigate or prosecute any alcohol or drug abuse patient.[facility] ClinicIn the event this information is protected by the Federal Confidentiality of Alcohol and Drug Abuse Patient Records regulations: The Federal rules restrict any use of the information to criminally investigate or prosecute any alcohol or drug abuse patient.[facility] ClinicIn the event this information is protected by the Federal Confidentiality of Alcohol and Drug Abuse Patient Records regulations: The Federal rules restrict any use of the information to criminally investigate or prosecute any alcohol or drug abuse patient.[facility] ClinicIn the event this information is protected by the Federal Confidentiality of Alcohol and Drug Abuse Patient Records regulations: The Federal rules restrict any use of the information to criminally investigate or prosecute any alcohol or drug abuse patient.[facility] ClinicIn the event this information is protected by the Federal Confidentiality of Alcohol and Drug Abuse Patient Records regulations: The Federal rules restrict any use of the information to criminally investigate or prosecute any alcohol or drug abuse patient.[facility] ClinicIn the event this information is protected by the Federal Confidentiality of Alcohol and Drug Abuse Patient Records regulations: The Federal rules restrict any use of the information to criminally investigate or prosecute any alcohol or drug abuse patient.[facility] ClinicIn the event this information is protected by the Federal Confidentiality of Alcohol and Drug Abuse Patient Records regulations: The Federal rules restrict any use of the information to criminally investigate or prosecute any alcohol or drug abuse patient.[facility] ClinicIn the event this information is protected by the Federal Confidentiality of Alcohol and Drug Abuse Patient Records regulations: The Federal rules restrict any use of the information to criminally investigate or prosecute any alcohol or drug abuse patient.[facility] ClinicIn the event this information is protected by the Federal Confidentiality of Alcohol and Drug Abuse Patient Records regulations: The Federal rules restrict any use of the information to criminally investigate or prosecute any alcohol or drug abuse patient.[facility] ClinicIn the event this information is protected by the Federal Confidentiality of Alcohol and Drug Abuse Patient Records regulations: The Federal rules restrict any use of the information to criminally investigate or prosecute any alcohol or drug abuse patient.[facility] ClinicIn the event this information is protected by the Federal Confidentiality of Alcohol and Drug Abuse Patient Records regulations: The Federal rules restrict any use of the information to criminally investigate or prosecute any alcohol or drug abuse patient.[facility] ClinicIn the event this information is protected by the Federal Confidentiality of Alcohol and Drug Abuse Patient Records regulations: The Federal rules restrict any use of the information to criminally investigate or prosecute any alcohol or drug abuse patient.[facility] ClinicIn the event this information is protected by the Federal Confidentiality of Alcohol and Drug Abuse Patient Records regulations: The Federal rules restrict any use of the information to criminally investigate or prosecute any alcohol or drug abuse patient.[facility] ClinicIn the event this information is protected by the Federal Confidentiality of Alcohol and Drug Abuse Patient Records regulations: The Federal rules restrict any use of the information to criminally investigate or prosecute any alcohol or drug abuse patient.[facility] ClinicIn the event this information is protected by the Federal Confidentiality of Alcohol and Drug Abuse Patient Records regulations: The Federal rules restrict any use of the information to criminally investigate or prosecute any alcohol or drug abuse patient.[facility] ClinicIn the event this information is protected by the Federal Confidentiality of Alcohol and Drug Abuse Patient Records regulations: The Federal rules restrict any use of the information to criminally investigate or prosecute any alcohol or drug abuse patient.[facility] ClinicIn the event this information is protected by the Federal Confidentiality of Alcohol and Drug Abuse Patient Records regulations: The Federal rules restrict any use of the information to criminally investigate or prosecute any alcohol or drug abuse patient.[facility] ClinicIn the event this information is protected by the Federal Confidentiality of Alcohol and Drug Abuse Patient Records regulations: The Federal rules restrict any use of the information to criminally investigate or prosecute any alcohol or drug abuse patient.[facility] ClinicIn the event this information is protected by the Federal Confidentiality of Alcohol and Drug Abuse Patient Records regulations: The Federal rules restrict any use of the information to criminally investigate or prosecute any alcohol or drug abuse patient.[facility] ClinicIn the event this information is protected by the Federal Confidentiality of Alcohol and Drug Abuse Patient Records regulations: The Federal rules restrict any use of the information to criminally investigate or prosecute any alcohol or drug abuse patient.[facility] ClinicIn the event this information is protected by the Federal Confidentiality of Alcohol and Drug Abuse Patient Records regulations: The Federal rules restrict any use of the information to criminally investigate or prosecute any alcohol or drug abuse patient.[facility] ClinicIn the event this information is protected by the Federal Confidentiality of Alcohol and Drug Abuse Patient Records regulations: The Federal rules restrict any use of the information to criminally investigate or prosecute any alcohol or drug abuse patient.[facility] ClinicIn the event this information is protected by the Federal Confidentiality of Alcohol and Drug Abuse Patient Records regulations: The Federal rules restrict any use of the information to criminally investigate or prosecute any alcohol or drug abuse patient.[facility] ClinicIn the event this information is protected by the Federal Confidentiality of Alcohol and Drug Abuse Patient Records regulations: The Federal rules restrict any use of the information to criminally investigate or prosecute any alcohol or drug abuse patient.[facility] ClinicIn the event this information is protected by the Federal Confidentiality of Alcohol and Drug Abuse Patient Records regulations: The Federal rules restrict any use of the information to criminally investigate or prosecute any alcohol or drug abuse patient.[facility] ClinicIn the event this information is protected by the Federal Confidentiality of Alcohol and Drug Abuse Patient Records regulations: The Federal rules restrict any use of the information to criminally investigate or prosecute any alcohol or drug abuse patient.[facility] ClinicIn the event this information is protected by the Federal Confidentiality of Alcohol and Drug Abuse Patient Records regulations: The Federal rules restrict any use of the information to criminally investigate or prosecute any alcohol or drug abuse patient.[facility] ClinicIn the event this information is protected by the Federal Confidentiality of Alcohol and Drug Abuse Patient Records regulations: The Federal rules restrict any use of the information to criminally investigate or prosecute any alcohol or drug abuse patient.[facility] ClinicIn the event this information is protected by the Federal Confidentiality of Alcohol and Drug Abuse Patient Records regulations: The Federal rules restrict any use of the information to criminally investigate or prosecute any alcohol or drug abuse patient.[facility] ClinicIn the event this information is protected by the Federal Confidentiality of Alcohol and Drug Abuse Patient Records regulations: The Federal rules restrict any use of the information to criminally investigate or prosecute any alcohol or drug abuse patient.[facility] ClinicIn the event this information is protected by the Federal Confidentiality of Alcohol and Drug Abuse Patient Records regulations: The Federal rules restrict any use of the information to criminally investigate or prosecute any alcohol or drug abuse patient.[facility] ClinicIn the event this information is protected by the Federal Confidentiality of Alcohol and Drug Abuse Patient Records regulations: The Federal rules restrict any use of the information to criminally investigate or prosecute any alcohol or drug abuse patient.[facility] ClinicIn the event this information is protected by the Federal Confidentiality of Alcohol and Drug Abuse Patient Records regulations: The Federal rules restrict any use of the information to criminally investigate or prosecute any alcohol or drug abuse patient.[facility] ClinicIn the event this information is protected by the Federal Confidentiality of Alcohol and Drug Abuse Patient Records regulations: The Federal rules restrict any use of the information to criminally investigate or prosecute any alcohol or drug abuse patient.[facility] ClinicIn the event this information is protected by the Federal Confidentiality of Alcohol and Drug Abuse Patient Records regulations: The Federal rules restrict any use of the information to criminally investigate or prosecute any alcohol or drug abuse patient.[facility] ClinicIn the event this information is protected by the Federal Confidentiality of Alcohol and Drug Abuse Patient Records regulations: The Federal rules restrict any use of the information to criminally investigate or prosecute any alcohol or drug abuse patient.[facility] ClinicIn the event this information is protected by the Federal Confidentiality of Alcohol and Drug Abuse Patient Records regulations: The Federal rules restrict any use of the information to criminally investigate or prosecute any alcohol or drug abuse patient.[facility] ClinicIn the event this information is protected by the Federal Confidentiality of Alcohol and Drug Abuse Patient Records regulations: The Federal rules restrict any use of the information to criminally investigate or prosecute any alcohol or drug abuse patient.[facility] ClinicIn the event this information is protected by the Federal Confidentiality of Alcohol and Drug Abuse Patient Records regulations: The Federal rules restrict any use of the information to criminally investigate or prosecute any alcohol or drug abuse patient.[facility] ClinicIn the event this information is protected by the Federal Confidentiality of Alcohol and Drug Abuse Patient Records regulations: The Federal rules restrict any use of the information to criminally investigate or prosecute any alcohol or drug abuse patient.[facility] ClinicIn the event this information is protected by the Federal Confidentiality of Alcohol and Drug Abuse Patient Records regulations: The Federal rules restrict any use of the information to criminally investigate or prosecute any alcohol or drug abuse patient.[facility] ClinicIn the event this information is protected by the Federal Confidentiality of Alcohol and Drug Abuse Patient Records regulations: The Federal rules restrict any use of the information to criminally investigate or prosecute any alcohol or drug abuse patient.[facility] ClinicIn the event this information is protected by the Federal Confidentiality of Alcohol and Drug Abuse Patient Records regulations: The Federal rules restrict any use of the information to criminally investigate or prosecute any alcohol or drug abuse patient.[facility] ClinicIn the event this information is protected by the Federal Confidentiality of Alcohol and Drug Abuse Patient Records regulations: The Federal rules restrict any use of the information to criminally investigate or prosecute any alcohol or drug abuse patient.[facility] ClinicIn the event this information is protected by the Federal Confidentiality of Alcohol and Drug Abuse Patient Records regulations: The Federal rules restrict any use of the information to criminally investigate or prosecute any alcohol or drug abuse patient.[facility] ClinicIn the event this information is protected by the Federal Confidentiality of Alcohol and Drug Abuse Patient Records regulations: The Federal rules restrict any use of the information to criminally investigate or prosecute any alcohol or drug abuse patient.[facility] ClinicIn the event this information is protected by the Federal Confidentiality of Alcohol and Drug Abuse Patient Records regulations: The Federal rules restrict any use of the information to criminally investigate or prosecute any alcohol or drug abuse patient.[facility] ClinicIn the event this information is protected by the Federal Confidentiality of Alcohol and Drug Abuse Patient Records regulations: The Federal rules restrict any use of the information to criminally investigate or prosecute any alcohol or drug abuse patient.[facility] ClinicIn the event this information is protected by the Federal Confidentiality of Alcohol and Drug Abuse Patient Records regulations: The Federal rules restrict any use of the information to criminally investigate or prosecute any alcohol or drug abuse patient.[facility] ClinicIn the event this information is protected by the Federal Confidentiality of Alcohol and Drug Abuse Patient Records regulations: The Federal rules restrict any use of the information to criminally investigate or prosecute any alcohol or drug abuse patient.[facility] ClinicIn the event this information is protected by the Federal Confidentiality of Alcohol and Drug Abuse Patient Records regulations: The Federal rules restrict any use of the information to criminally investigate or prosecute any alcohol or drug abuse patient.[facility] ClinicIn the event this information is protected by the Federal Confidentiality of Alcohol and Drug Abuse Patient Records regulations: The Federal rules restrict any use of the information to criminally investigate or prosecute any alcohol or drug abuse patient.[facility] ClinicIn the event this information is protected by the Federal Confidentiality of Alcohol and Drug Abuse Patient Records regulations: The Federal rules restrict any use of the information to criminally investigate or prosecute any alcohol or drug abuse patient.[facility] ClinicIn the event this information is protected by the Federal Confidentiality of Alcohol and Drug Abuse Patient Records regulations: The Federal rules restrict any use of the information to criminally investigate or prosecute any alcohol or drug abuse patient.[facility] ClinicIn the event this information is protected by the Federal Confidentiality of Alcohol and Drug Abuse Patient Records regulations: The Federal rules restrict any use of the information to criminally investigate or prosecute any alcohol or drug abuse patient.[facility] ClinicIn the event this information is protected by the Federal Confidentiality of Alcohol and Drug Abuse Patient Records regulations: The Federal rules restrict any use of the information to criminally investigate or prosecute any alcohol or drug abuse patient.[facility] Reason for Visit (unrecogniz ed section and content) Reason Comments New Patient Specialty Diagnoses / Procedures Referred By Contac t Referred To Contact Oncology Diagnoses Liver masses Procedures CONSULT TO ONCOLOGY OFFICE/OUTPATIENT NEW HIGH MDM 60 MINUTES Girish Lemos MD [address] [place] [address] Phone: tel: fax: Referral ID Status Reason Start Date Expiration Date V isits Requested Visits Authorized [id number] Closed PCP Requested Referral 10/17/2024 10/17/2025 1 [...] call back from [facility] [place] around 09/03/24 as requested with readings. Patient [...] CT ABD & PELVIS W/CONTRAST Oleg Fields, ALEXA.MAR[employer]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 [address] [place] [address] [place] [address] Referral ID Status Reason Start Date Expiration Date V isits Requested Visits Authorized [id number] Closed Auto-Generate d Referral 10/16/2024 11/15/2025 1 1 Reason Comments Follow Up discuss lab results and care plan, diarrhea x 3 days Reason Comments Results Reason Comments Orders Reason Comments Patient Request Reason Comments Radiology CT Specialty Diagnoses / Procedures Referred By Zaida ayers Referred To Contact CT IMAGING Diagnoses Liver masses Procedures CT CHEST W IVCON DIAGNOSTIC COMPUTED TOMOGRAPHY THORAX W/CONTRAST Girish Lemos MD [address] [place] [address] Phone: tel: fax: [facility] [place] [id number] Referral ID Status Reason Start Date Expiration Date V isits Requested Visits Authorized [id number] Closed Auto-Generate d Referral 10/17/2024 11/16/2025 1 [...] Care Teams (unrecognized sec tion and content) Arbitrator Relationship Specialty Start Date End Date Girish Lemos MD [address] [place], [place] [id number] PCP - General Family Practice 11/14/17 Arbitrator Relationship Specialty Start Date End Date Girish Lemos MD [address] [place], [place] [id number] PCP - General Family Practice 11/14/17 Arbitrator Relationship Specialty Start Date End Date Girish Lemos MD [address] [place], [place] [id number] PCP - General Family Medicine 11/14/17 Arbitrator Relationship Specialty Start Date End Date Girish Lemos MD [address] [place] [address] PCP - General Family Medicine 11/14/17 Arbitrator Relationship Specialty Start Date End Date Girish Lemos MD [address] [place] [address] PCP - General Family Medicine 11/14/17 Arbitrator Relationship Specialty Start Date End Date Girish Lemos MD [address] [place] [address] PCP - General Family Medicine 11/14/17 Arbitrator Relationship Specialty Start Date End Date Girish Lemos MD [address] [place] [address] PCP - General Family Medicine 11/14/17 Arbitrator Relationship Specialty Start Date End Date Girish Lemos MD [address] [place] [address] PCP - General Family Medicine 11/14/17 Arbitrator Relationship Specialty Start Date End Date Girish Lemos MD [address] [place] [address] PCP - General Family Medicine 11/14/17 Arbitrator Relationship Specialty Start Date End Date Girish Lemos MD [address] [place] [address] PCP - General Family Medicine 11/14/17 Arbitrator Relationship Specialty Start Date End Date Girish Lemos MD [address] [place] [address] PCP - General Family Medicine 11/14/17 Team Status: Active Member Role Status Dates DEFINED NOT Family Provider Active Dr. Fabricio Lemos MD Primary Care Provider Acti ve Team Status: Inactive Member Role Status Dates Dr. Fabricio Lemos MD Primary Care Provider, Ref erring Provider Active Roxann Gomez INSULATION BLOWER, INSULATION BLOWER-C Attending Provider Active Team Status: Inactive Member Role Status Dates Dr. Fabricio Lemos MD Primary Care Provider Acti ve Roxann Gomez INSULATION BLOWER, INSULATION BLOWER-C Attending Provider, Referrin g Provider Active Arbitrator Relationship Specialty Start Date End Date Girish Lemos MD [address] [place] [address] PCP - General Family Medicine 11/14/17 Arbitrator Relationship Specialty Start Date End Date Girish Lemos MD [address] [place] [address] PCP - General Family Medicine 11/14/17 Arbitrator Relationship Specialty Start Date End Date Girish Lemos MD [address] [place] [address] PCP - General Family Medicine 11/14/17 Arbitrator Relationship Specialty Start Date End Date Girish Lemos MD [address] [place] [address] PCP - General Family Medicine 11/14/17 Arbitrator Relationship Specialty Start Date End Date Girish Lemos MD [address] [facility], [place] [address] PCP - General Family Medicine 11/14/17 Team [...] MD Attending Provider, Referring Pr ovider Active Arbitrator Relationship Specialty Start Date End Date Girish Lemos MD [address] [place] [address] PCP - General Family Medicine 11/14/17 Arbitrator Relationship Specialty Start Date End Date Girish Lmeos MD [address] [place] [address] PCP - General Family Medicine 11/14/17 Arbitrator Relationship Specialty Start Date End Date Girish Lemos MD [address] [place] [address] PCP - General Family Medicine 11/14/17 Arbitrator Relationship Specialty Start Date End Date Girish Lemos MD [address] [place] [address] PCP - General Family Medicine 11/14/17 Arbitrator Relationship Specialty Start Date End Date Girish Lemos MD [address] [place] [address] PCP - General Family Medicine 11/14/17 Arbitrator Relationship Specialty Start Date End Date Girish Lemos MD [address] [place] [address] PCP - General Family Medicine 11/14/17 Arbitrator Relationship Specialty Start Date End Date Girish Lemos MD [address] [place] [address] PCP - General Family Medicine 11/14/17 Arbitrator Relationship Specialty Start Date End Date Girish Lemos MD [address] [place] [address] PCP - General Family Medicine 11/14/17 Arbitrator Relationship Specialty Start Date End Date Girish Lemos MD [address] [place] [address] PCP - General Family Medicine 11/14/17 Arbitrator Relationship Specialty Start Date End Date Girish Lemos MD [address] [place] [address] PCP - General Family Medicine 11/14/17 Arbitrator Relationship Specialty Start Date End Date Girish Lemos MD [address] [place] [address] PCP - General Family Medicine 11/14/17 Arbitrator Relationship Specialty Start Date End Date Girish Lemos MD [address] [place] [address] PCP - General Family Medicine 11/14/17 Arbitrator Relationship Specialty Start Date End Date Girish Lemos MD [address] [place] [address] PCP - General Family Medicine 11/14/17 PodlogJeanette gibbons APRN.MARINE 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 [address] [place] [address] [employer] [facility] 08/23/24 Arbitrator Relationship Specialty Start Date End Date Girish Lemos MD [address] [place] [address] PCP - General Family Medicine 11/14/17 PodlogarJeanette APRN.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 [address] [place] [address] [facility] 08/[facility]/24 Arbitrator Relationship Specialty Start Date End Date Girish Lemos MD [address] [place] [address] PCP - General Family Medicine 11/14/17 Podlogar, Jeanette, 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 [address] [facility] [address] [facility] 08/23/24 Arbitrator Relationship Specialty Start Date End Date Girish Lemos MD [address] [facility] [place] [address] PCP - General Family Medicine 11/14/17 Podlogar, Jeanette, 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 [address] [place] [address] [facility] 08/23/24 Arbitrator Relationship Specialty Start Date End Date Girish Lemos MD [address] [place] [address] PCP - General Family Medicine 11/14/17 Podlogar, Jeanette, 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 [address] [facility] [place] [address] [facility] 08/23/24 Arbitrator Relationship Specialty Start Date End Date Girish Lemos MD [address] [facility] [place] [address] PCP - General Family Medicine 11/14/17 Podlogar, Jeanette, 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 [address] [place] [address] [facility] Arbitrator Relationship Specialty Start Date End Date Girish Lemos MD [address] [place] [address] PCP - General Family Medicine 11/14/17 Podlogar, Jeanette 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 [address] [place] [address] [facility] 08/23/24 Arbitrator Relationship Specialty Start Date End Date Girish Lemos MD [address] [place] [address] PCP - General Family Medicine 11/14/17 Podlogar, Jeanette, 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 [address] [place] [address] [facility] Arbitrator Relationship Specialty Start Date End Date Girish Lemos MD [address] [place] [address] PCP - General Family Medicine 11/14/17 Podlogar, Jeanette, 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 [address] [place] [address] [facility] 08/23/24 Arbitrator Relationship Specialty Start Date End Date Girish Lemos MD [address] [facility] [address] PCP - General Family Medicine 11/14/17 Podlogar, Jeanette, 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 [address] [place] [address] [facility] 08/[facility] Arbitrator Relationship Specialty Start Date End Date Girish Lemos MD [address] [place] [address] PCP - General Family Medicine 11/14/17 Podlogar, WILFRED ReidN.MARINE O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 [address] [place] [address] [facility] 08/[facility]/24 Arbitrator Relationship Specialty Start Date End Date Girish Lemos MD [address] [place] [address] PCP - General Family Medicine 11/14/17 Podlogar, ALEXA Reid.MARINE O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 [address] [place] [address] [facility] 08/23/24 Arbitrator Relationship Specialty Start Date End Date Girish Lemos MD [address] [place] [address] PCP - General Family Medicine 11/14/17 Podlogar, WILFRED ReidN.MARINE O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 [address] [place] [address] [facility] 08/23/24 Arbitrator Relationship Specialty Start Date End Date Girish Lemos MD [address] [facility] [address] PCP - General Family Medicine 11/14/17 Podlogar, Jeanette, 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 [address] [place] [address] Bead Worker Sewing Family [facility] 08/23/24 Roxann Gomez [address] [place] [address] Vascular Medicine 11/05/24 Arbitrator Relationship Specialty Start Date End Date Girish Lemos MD [address] [facility] [address] PCP - General Family Medicine 11/14/17 Podlogar, Jeanette, 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 [address] [facility] [address] [facility] 08/23/24 Roxann Gomez [address] [place] [address] Vascular Medicine 11/05/24 Silas Robbins MD [address] [place] [address] Hematology/Oncology 11/10/24 Arbitrator Relationship Specialty Start Date End Date Girish Lemos MD [address] [facility] [address] PCP - General Family Medicine 11/14/17 Podlogar, Jeanette, 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 [address] [place] [address] Bead Worker Sewing Family [facility] 08/23/24 Roxann Gomez [address] [place] [address] Vascular Medicine 11/05/24 Silas Robbins MD [address] [facility], [place] [address] Hematology/Oncology 11/10/24 Arbitrator Relationship Specialty Start Date End Date Girish Lemos MD [address] [facility], [place] [address] PCP - General Family Medicine 11/14/17 PodlogarJeanette APRN.MARINE O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 [address] [place] [address] Bead Worker Sewing Family Medicine 08/23/24 Roxann Gomez [address] [facility] [place] [address] Vascular Medicine 11/05/24 Silas Robbins MD [address] [place] [address] Hematology/Oncology 11/10/24 Team Status: Active Member Role Status Dates Dr. Fabricio Lemos MD Primary Care Provider Acti ve Team Status: Inactive Member Role Status Dates Dr. Fabricio Lemos MD Primary Care Provider Acti ve Start: November 03, 2024 End: November 03, 2024 Dr. Fabricio Lemos MD Referring Provider Active Start: November 03, 2024 End: November 03, 2024 Roxann Gomez NP, INSULATION BLOWER-C Attending Provider Active Start: November 03, 2024 End: November 03, 2024 Team Status: Inactive Member Role Status Dates Dr. Fabricio Lemos MD Primary Care Provider Acti ve Start: November 11, 2024 End: November 11, 2024 Roxann Gomez NP, INSULATION BLOWER-C Attending Provider Active Start: November 11, 2024 End: November 11, 2024 Roxann Gomez INSULATION BLOWER, INSULATION BLOWER-C Referring Provider Active Start: November 11, 2024 [...] Inactive Member Role Status Dates Dr. Fabricio Lemso [...] 2024 End: November 24, 2024 Roxann Gomez INSULATION BLOWER, INSULATION BLOWER-C Referring Provider Active Start: November 24, 2024 [...] 2024 End: December 02, 2024 Sharda Bronson INSULATION BLOWER, INSULATION BLOWER-C Attending Provider Active Start: December 02, 2024 [...] 2024 End: December 09, 2024 Sharda Bronson INSULATION BLOWER, INSULATION BLOWER-C Attending Provider Active Start: December 09, 2024 [...] Provider Active S tart: December 12, 2024 Arbitrator Relationship Specialty Start Date End Date Girish Lemos MD [address] [place] [address] PCP - General Family Medicine 11/14/17 MaksimlogarJeanette APRN.MARINE O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 [address] [place] [address] Bead Worker Sewing Family Medicine 08/23/24 Roxann Gomez [address] [place] [address] Vascular Medicine 11/05/24 Silas Robbins MD [address] [address] Hematology/Oncology 11/10/24 Oleg Fields APRN.MARINE O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 [address] [place] [address] [facility] 12/08/24 Arbitrator Relationship Specialty Start Date End Date Girish Lemos MD [address] [place] [address] PCP - General Family Medicine 11/14/17 PodlogarJeanette APRN.MARINE O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 [address] [place] [address] [facility] 08/23/24 Roxann Gomez [address] [place] [address] Vascular Medicine 11/05/24 Silas Robbins MD [address] [address] Hematology/Oncology 11/10/24 Oleg Fields, 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 [address] [place] [address] [facility] 12/08/24 Arbitrator Relationship Specialty Start Date End Date Girish Lemos MD [address] [facility], [place] [address] PCP - General Family Medicine 11/14/17 PodlogJeanette gibbons APRN.MARINE O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 [address] [facility], [place] [address] Bead Worker Sewing Family Medicine 08/23/24 Roxann Gomez [address] [facility] [place] [address] Vascular Medicine 11/05/24 Silas Robbins MD [address] [facility], [place] [address] Hematology/Oncology 11/10/24 Oleg Fields, 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 [address] [facility], [place] [address] [facility] 11/28/24 12/07/24 Oleg Fields, 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 [address] [facility], [place] [id number] [facility] 12/08/24 Team Status: Inactive Member Role Status Dates Dr. Fabricio Lemos MD Primary Care Provider Acti ve Start: December 16, 2024 End: December 16, 2024 Dr. Fabricio Lemos MD Referring Provider Active Start: December 16, 2024 End: December 16, 2024 Sharda Bronson INSULATION BLOWER, INSULATION BLOWER-C Attending Provider Active Start: December 16, 2024 End: December 16, 2024 Team Status: Inactive Member Role Status Dates Dr. Fabricio Lemos MD Primary Care Provider Acti ve Start: December 22, 2024 End: December 22, 2024 Dr. Fabricio Lemos MD Referring Provider Active Start: December 22, 2024 End: December 22, 2024 Rachael Mattson PA PAShanikaC Attending Provider Active Start: December 22, 2024 End: December 22, 2024 Team Status: Inactive Member Role Status Dates Dr. Fabricio Lemos MD Primary Care Provider Acti ve Start: December 29, 2024 End: December 29, 2024 Dr. Fabricio Lemos MD Referring Provider Active Start: December 29, 2024 End: December 29, 2024 Sharda Bronson INSULATION BLOWER, INSULATION BLOWER-C Attending Provider Active Start: December 29, 2024 [...] Provider Active Sta rt: January 10, 2025 Arbitrator Relationship Specialty Start Date End Date Girish Lemos MD [address] [place], [place] [address] PCP - General Family Medicine 11/14/17 PodlogarJeanette APRN.MARINE O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 [address] [place], [place] [address] Bead Worker Sewing Family [facility] 08/23/24 Roxann Gomez [address] [place] [address] Vascular Medicine 11/05/24 Silas Robbins MD [address] [place], [place] [address] Hematology/Oncology 11/10/24 Oleg Fields APRN.MARINE O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 [address] [place], [place] [id number] Bead Worker Sewing [facility] 12/08/24 Arbitrator Relationship Specialty Start Date End Date Girish Lemos MD [address] [place], [place] [id number] PCP - General Family Medicine 11/14/17 Podlogar, ALEXA Reid.MARINE O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 [address] [place] [address] [facility] 08/23/24 Roxann Gomez [address] [place] [address] Vascular Medicine 11/05/24 Silas Robbins MD [address] [place] [address] Hematology/Oncology 11/10/24 Oleg Fields APRN.MARINE O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 [address] [facility] [place] [address] [facility] 12/08/24 Arbitrator Relationship Specialty Start Date End Date Girish Lemos MD [address] [place] [address] PCP - General [facility] Medicine 11/14/17 Podlogar, ALEXA Reid.MARINE O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 [address] [place] [address] [facility] 08/23/24 Roxann Gomez [address] [place] [address] Vascular Medicine 11/05/24 Silas Robbins MD [address] [place] [address] Hematology/Oncology 11/10/24 Oleg Fields APRN.MARINE O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 [address] [facility] [place] [address] Bead Worker Sewing [facility] 12/08/24 Arbitrator Relationship Specialty Start Date End Date Girish Lemos MD [address] [place] [address] PCP - General Family Medicine 11/14/17 PodlogarJeanette APRN.MARINE O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 [address] [place] [address] Bead Worker Sewing Family Medicine 08/23/24 Roxann Gomez [address] [place] [address] Vascular Medicine 11/05/24 Silas Robbins MD [address] [place] [address] Hematology/Oncology 11/10/24 Oleg Fields APRN.MARINE O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 [address] [facility] [place] [address] [facility] 12/08/24 Arbitrator Relationship Specialty Start Date End Date Girish Lemos MD [address] [place] [address] PCP - General Family Medicine 11/14/17 PodlogarJeanette APRN.MARINE O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 [address] [place] [address] Bead Worker Sewing Family Medicine 08/23/24 Roxann Gomez [address] [place] [place] [address] Vascular Medicine 11/05/24 Silas Robbins MD [address] [place] [address] Hematology/Oncology 11/10/24 Oleg Fields APRN.MARINE O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 [address] [place] [address] Bead Worker Sewing [facility] 12/08/24 Team Status: Active Member [...] Referring Provider Active Start: February 03, 2025 Arbitrator Relationship Specialty Start Date End Date Girish Lemos MD [address] [facility] [place] [id number] PCP - General Family Medicine 11/14/17 Jeanette Berrios APRN.CNP [address] [facility] [place] [id number] Bead Worker Sewing Family [facility] 08/23/24 Roxann Gomez [address] [facility] [place] [address] Vascular Medicine 11/05/24 Silas Robbins MD [address] [facility], [place] [id number] Hematology/Oncology 11/10/24 Team Status: Active Member Role [...] 2024 End: November 24, 2024 Roxann Gomez INSULATION BLOWER, INSULATION BLOWER-C Referring Provider Active Start: November 24, 2024 [...] 2024 End: December 02, 2024 Sharda Bronson INSULATION BLOWER, INSULATION BLOWER-C Attending Provider Active Start: December 02, 2024 [...] 2024 End: December 09, 2024 Sharda Bronson INSULATION BLOWER, INSULATION BLOWER-C Attending Provider Active Start: December 09, 2024 [...] 2024 End: December 16, 2024 Sharda Bronson INSULATION BLOWER, INSULATION BLOWER-C Attending Provider Active Start: December 16, 2024 [...] 2024 End: December 29, 2024 Sharda Bronson INSULATION BLOWER, INSULATION BLOWER-C Attending Provider Active Start: December 29, 2024 [...] Referring Provider Active Start: March 16, 2025 Arbitrator Relationship Specialty Start Date End Girish Lemos MD [address] [place], [place] [address] PCP - General Family Medicine 11/14/17 PodlogJeanette gibbons APRN.CNP [address] [place], [place] [address] Bead Worker Sewing Family [facility] 08/23/24 Roxann Gomez [address] [place] [address] Vascular Medicine 11/05/24 iSlas Robbins MD [address] [place], [place] [id number] Hematology/Oncology 11/10/24 AshliejonasOleg APRN.MARINE O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 [address] [place] [address] Bead Worker Sewing Family [facility] 02/26/25 Team Status: Inactive Member Role/Relationship Status Dates Dr. Fabricio Lemos MD Primary Care Provider Acti ve Start: December 09, 2024 End: December 09, 2024 Dr. Fabricio Lemos MD Referring Provider Active Start: December 09, 2024 End: December 09, 2024 Sharda Bronson INSULATION BLOWER, INSULATION BLOWER-C Attending Provider Active Start: December 09, 2024 [...] 2024 End: December 16, 2024 Sharda Bronson INSULATION BLOWER, INSULATION BLOWER-C Attending Provider Active Start: December 16, 2024 [...] 2024 End: December 29, 2024 Sharda Bronson INSULATION BLOWER, INSULATION BLOWER-C Attending Provider Active Start: December 29, 2024 [...] 2025 End: April 06, 2025 Sharda Bronson INSULATION BLOWER, INSULATION BLOWER-C Attending Provider Active Start: April 06, 2025 [...] End: December 16, 2024 Sharda Bronson NP, INSULATION BLOWER-C Attending Provider Active Start: December 16, 2024 [...] 2024 End: December 29, 2024 Sharda Bronson INSULATION BLOWER, INSULATION BLOWER-C Attending Provider Active Start: December 29, 2024 [...] 2025 End: April 06, 2025 Sharda Bronson INSULATION BLOWER, INSULATION BLOWER-C Attending Provider Active Start: April 06, 2025 End: April 06, 2025 Team Status: Inactive Member Role/Relationship Status Dates Dr. Fabricio Lemos MD Primary Care Provider Acti ve Start: April 06, 2025 End: April 06, 2025 Shardajany Bronson INSULATION BLOWER, INSULATION BLOWER-C Attending Provider Active Start: April 06, 2025 End: April 06, 2025 Sharda Audie INSULATION BLOWER, INSULATION BLOWER-C Referring Provider Active Start: April 06, 2025 End: April 06, 2025 Team Status: Inactive Member Role/Relationship Status Dates Dr. Fabricio Lemos MD Primary Care Provider Acti ve Start: December 16, 2024 End: December 16, 2024 Dr. Fabricoi Lemos MD Referring Provider Active Start: December 16, 2024 End: December 16, 2024 Shardajany Bronson INSULATION BLOWER, INSULATION BLOWER-C Attending Provider Active Start: December 16, 2024 End: December 16, 2024 Team Status: Inactive Member Role/Relationship Status Dates Dr. Fabricio Lemos MD Primary Care Provider Acti ve Start: December 22, 2024 End: December 22, 2024 Dr. Fabricio Lemos MD Referring Provider Active Start: December 22, 2024 End: December 22, 2024 Rachael Mattson PA, PA-C Attending Provider Active Start: December 22, 2024 End: December 22, 2024 Team Status: Inactive Member Role/Relationship Status Dates Dr. Fabricio Lemos MD Primary Care Provider Acti ve Start: December 29, 2024 End: December 29, 2024 Dr. Fabricio Lemos MD Referring Provider Active Start: December 29, 2024 End: December 29, 2024 Sharda Bronson INSULATION BLOWER, INSULATION BLOWER-C Attending Provider Active Start: December 29, 2024 [...] 2025 End: April 06, 2025 Sharda Bronson INSULATION BLOWER, INSULATION BLOWER-C Attending Provider Active Start: April 06, 2025 End: April 06, 2025 Team Status: Inactive Member Role/Relationship Status Dates Dr. Fabricio Lemos MD Primary Care Provider Acti ve Start: April 06, 2025 End: April 06, 2025 Sharda Bronson INSULATION BLOWER, INSULATION BLOWER-C Attending Provider Active Start: April 06, 2025 End: April 06, 2025 Sharda Bronson INSULATION BLOWER, INSULATION BLOWER-C Referring Provider Active Start: April 06, 2025 End: April 06, 2025 Team Status: Inactive Member Role/Relationship Status Dates Dr. Fabricio Lemos MD Primary Care Provider Acti ve Start: April 13, 2025 End: April 13, 2025 Dr. Fabricio Lemos MD Referring Provider Active Start: April 13, 2025 End: April 13, 2025 Dr. Reg Layne DO Attending Provider Active Start: April 13, 2025 End: April 13, 2025 Arbitrator Relationship Specialty Start Date End Date Girish Lemos MD [address] [place], [place] [address] PCP - General Family Medicine 11/14/17 PodlogarJeanette APRN.MARINE O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 [address] [place], [place] [address] [facility] Medicine 08/23/24 Roxann Gomez [address] [place] [address] Vascular Medicine 11/05/24 Silas Robbins MD [address] [place], [place] [phone] Hematology/Oncology 11/10/24 Oleg Fields APRN.MARINE O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 [address] [place], [place] [id number] [facility] 02/26/25 Team Status: Inactive Member Role/Relationship Status [...] 2024 End: December 29, 2024 Sharda Bronson INSULATION BLOWER, INSULATION BLOWER-C Attending Provider Active Start: December 29, 2024 [...] 2025 End: April 06, 2025 Sharda Bronson INSULATION BLOWER, INSULATION BLOWER-C Attending Provider Active Start: April 06, 2025 End: April 06, 2025 Team Status: Inactive Member Role/Relationship Status Dates Dr. Fabricio Lemos MD Primary Care Provider Acti ve Start: April 06, 2025 End: April 06, 2025 Shardajany Bronson INSULATION BLOWER, INSULATION BLOWER-C Attending Provider Active Start: April 06, 2025 End: April 06, 2025 Sharda Audie INSULATION BLOWER, INSULATION BLOWER-C Referring Provider Active Start: April 06, 2025 End: April 06, 2025 Team Status: Inactive Member Role/Relationship Status Dates Dr. Fabricio Lemos MD Primary Care Provider Acti ve Start: April 13, 2025 End: April 13, 2025 Dr. Fabricio Lemos MD Referring Provider Active Start: April 13, 2025 End: April 13, 2025 Dr. Reg Layne DO Attending Provider Active Start: April 13, 2025 End: April 13, 2025 Team Status: Active Member Role/Relationship Status Dates Dr. Fabricio Lemos MD Primary Care Provider Acti ve Start: April 15, 2025 Dr. Sherice Fernandez MD Attending Provider Active Start: April 15, 2025 Dr. Sherice Fernandez MD Referring Provider Active Start: April 15, 2025 Team Status: Active Member Role/Relationship Status Dates Dr. Fabricio Lemos MD Primary Care Provider Acti ve Start: April 15, 2025 Dr. Reg Layne DO Attending Provider Active Start: April 15, 2025 Team Status: Inactive Member Role/Relationship Status Dates Dr. Fabricio Lemos MD Primary Care Provider Acti ve Start: April 20, 2025 End: April 20, 2025 Dr. George Fajardo DO Emergency Provider Active Start : April 20, 2025 End: April 20, 2025 Team Status: Inactive Member Role/Relationship Status Dates Dr. Fabricio Lemos MD Primary Care Provider Acti ve Start: December 29, 2024 End: December 29, 2024 Dr. Fabricio Lemos MD Referring Provider Active Start: December 29, 2024 End: December 29, 2024 Sharda Bronson INSULATION BLOWER, INSULATION BLOWER-C Attending Provider Active Start: December 29, 2024 [...] 2025 End: April 06, 2025 Sharda Bronson INSULATION BLOWER, INSULATION BLOWER-C Attending Provider Active Start: April 06, 2025 End: April 06, 2025 Team Status: Inactive Member Role/Relationship Status Dates Dr. Fabricio Lemos MD Primary Care Provider Acti ve Start: April 06, 2025 End: April 06, 2025 Sharda Bronson INSULATION BLOWER, INSULATION BLOWER-C Attending Provider Active Start: April 06, 2025 End: April 06, 2025 Sharda Bronson INSULATION BLOWER, INSULATION BLOWER-C Referring Provider Active Start: April 06, 2025 End: April 06, 2025 Team Status: Inactive Member Role/Relationship Status Dates Dr. Fabricio Lemos MD Primary Care Provider Acti ve Start: April 13, 2025 End: April 13, 2025 Dr. Fabricio Lemos MD Referring Provider Active Start: April 13, 2025 End: April 13, 2025 Dr. Reg Layne DO Attending Provider Active Start: April 13, 2025 End: April 13, 2025 Team Status: Active Member Role/Relationship Status Dates Dr. Fabricio Lemos MD Primary Care Provider Acti ve Start: April 15, 2025 Dr. Reg Layne DO Attending Provider Active Start: April 15, 2025 Team Status: Inactive Member Role/Relationship Status Dates Dr. Fabricio Lemos MD Primary Care Provider Acti ve Start: April 20, 2025 End: April 20, 2025 Dr. George Fajardo DO Attending Provider Active Start : April 20, 2025 End: April 20, 2025 Dr. George Fajardo DO Emergency Provider Active Start : April 20, 2025 End: April 20, 2025 Team Status: Active Member Role/Relationship Status Dates Dr. Fabricio Lemos MD Primary Care Provider Acti ve Start: April 21, 2025 Dr. Reg Layne DO Attending Provider Active Start: April 21, 2025 Team Status: Active Member Role/Relationship Status Dates Dr. Fabricio Lemos MD Primary Care Provider Acti ve Start: April 22, 2025 Dr. Reg Layne DO Attending Provider Active Start: April 22, 2025 Team Status: Inactive Member Role/Relationship Status Dates Dr. Fabricio Lemos MD Primary Care Provider Acti ve Start: April 27, 2025 End: April 27, 2025 Dr. Fabricio Lemos MD Referring Provider Active Start: April 27, 2025 End: April 27, 2025 Dr. Sherice Fernandez MD Attending Provider Active Start: April 27, 2025 End: April 27, 2025 Team Status: Active Member Role/Relationship Status Dates Dr. Fabricio Lemos MD Primary Care Provider Acti ve Start: April 27, 2025 Dr. Sherice Fernandez MD Attending Provider Active Start: April 27, 2025 Dr. Sherice Fernandez MD Referring Provider Active Start: April 27, 2025 Team Status: Inactive Member Role/Relationship Status Dates Dr. Fabricio Lemos MD Primary Care Provider Acti ve Start: April 28, 2025 End: April 28, 2025 Dr. Fabricio Lemos MD Referring Provider Active Start: April 28, 2025 End: April 28, 2025 Dr. Reg Layne DO Attending Provider Active Start: April 28, 2025 End: April 28, 2025 Team Status: Active Member Role/Relationship Status Dates Dr. Fabricio Lemos MD Primary Care Provider Acti ve Start: April 28, 2025 Dr. Sherice Fernandez MD Attending Provider Active Start: April 28, 2025 Dr. Sherice Fernandez MD Referring Provider Active Start: April 28, 2025 Team Status: Inactive Member Role/Relationship Status [...] 2025 End: January 10, 2025 Dr. Estrella Cbaezas MD Referring Provider Active Start: January 09, [...] 2025 End: April 06, 2025 Sharda Bronson INSULATION BLOWER, INSULATION BLOWER-C Attending Provider Active Start: April 06, 2025 End: April 06, 2025 Team Status: Inactive Member Role/Relationship Status Dates Dr. Fabricio Lemos MD Primary Care Provider Acti ve Start: April 06, 2025 End: April 06, 2025 Shardajany Bronson INSULATION BLOWER, INSULATION BLOWER-C Attending Provider Active Start: April 06, 2025 End: April 06, 2025 Shardajany Bronson INSULATION BLOWER, INSULATION BLOWER-C Referring Provider Active Start: April 06, 2025 End: April 06, 2025 Team Status: Inactive Member Role/Relationship Status Dates Dr. Fabricio Lemos MD Primary Care Provider Acti ve Start: April 13, 2025 End: April 13, 2025 Dr. Fabricio Lemos MD Referring Provider Active Start: April 13, 2025 End: April 13, 2025 Dr. Reg Layne DO Attending Provider Active Start: April 13, 2025 End: April 13, 2025 Team Status: Active Member Role/Relationship Status Dates Dr. Fabricio Lemos MD Primary Care Provider Acti ve Start: April 15, 2025 Dr. Reg Layne DO Attending Provider Active Start: April 15, 2025 Team Status: Inactive Member Role/Relationship Status Dates Dr. Fabricio Lemos MD Primary Care Provider Acti ve Start: April 20, 2025 End: April 20, 2025 Dr. George Fajardo DO Attending Provider Active Start : April 20, 2025 End: April 20, 2025 Dr. George Fajardo DO Emergency Provider Active Start : April 20, 2025 End: April 20, 2025 Team Status: Active Member Role/Relationship Status Dates Dr. Fabricio Lemos MD Primary Care Provider Acti ve Start: April 21, 2025 Dr. Reg Layne DO Attending Provider Active Start: April 21, 2025 Team Status: Active Member Role/Relationship Status Dates Dr. Fabricio Lemos MD Primary Care Provider Acti ve Start: April 22, 2025 Dr. Reg Layne DO Attending Provider Active Start: April 22, 2025 Team Status: Inactive Member Role/Relationship Status Dates Dr. Fabricio Lemos MD Primary Care Provider Acti ve Start: April 27, 2025 End: April 27, 2025 Dr. Fabricio Lemos MD Referring Provider Active Start: April 27, 2025 End: April 27, 2025 Dr. Sherice Fernandez MD Attending Provider Active Start: April 27, 2025 End: April 27, 2025 Team Status: Inactive Member Role/Relationship Status Dates Dr. Fabricio Lemos MD Primary Care Provider Acti ve Start: April 28, 2025 End: April 28, 2025 Dr. Fabricio Lemos MD Referring Provider Active Start: April 28, 2025 End: April 28, 2025 Dr. Reg Layne DO Attending Provider Active Start: April 28, 2025 End: April 28, 2025 Team Status: Inactive Member Role/Relationship Status Dates Dr. Fabricio Lemos MD Primary Care Provider Acti ve Start: April 29, 2025 End: April 29, 2025 Dr. Fabricio Lemos MD Referring Provider Active Start: April 29, 2025 End: April 29, 2025 Dr. Sherice Fernandez MD Attending Provider Active Start: April 29, 2025 End: April 29, 2025 Team Status: Active Member Role/Relationship Status Dates Dr. Fabricio Lemos MD Primary Care Provider Acti ve Start: April 29, 2025 Dr. Sherice Fernandez MD Attending Provider Active Start: April 29, 2025 Dr. Sherice Fernandez MD Referring Provider Active Start: April 29, 2025 FOR RECORDS PERTAINING TO PATIENTS WHO [...] BE BASED ON THE PRIMARY CLINICAL RECORDS. [facility] [employer] provides no warranty or guarantee of the accuracy or completeness of information in this document.
[2025-04-30] MEDS: HYDROmorphone 0.5 MG/0.5 ML SYRINGE IV ×2 (08:54→11:51)
--- NOTE | 2025-04-30 09:09 | ED.RN ---
patient continues to complain of pain. pt states she does not want to go home. Dr. Bass notified of conversation. Rn states they have consult with Hospice tonight at 5:30 but they would like their family present for this conversation. Dr. Bass requesting hospice be consulted for IPU in the ED rather than later. Son notified of conversation and states he will do his best to contact everyone at this time. Patient states she would like to go to inpatient hospice. I am in too much pain
--- NOTE | 2025-04-30 09:15 | PCA ---
THIS US CALLED HOSPICE AT 0915 TO GET PT EVALUATED FOR IN PATIENT UNIT, THE RN ON THE PHONE SAID EARLIEST THEY COULD COME EVALUATE IS 1730. WILL CALL BACK IF THEY HAVE ANY CHANGES.
--- NOTE | 2025-04-30 10:11 | ED.RN ---
patient requesting something to eat. Soup from [employer] ordered
--- NOTE | 2025-04-30 20:56 | ED.RN ---
report given to hospice. all questions answered
== END 2025-04-30 22:30 | disposition hospice, inpatient (51) ==
PROVIDERS: Emergency Provider Emergency Medicine; PCP Family Medicine; Visit Provider Emergency Medicine
DX: C7A.8 Other malignant neuroendocrine tumors (principal); I10 Essential (primary) hypertension; Z51.5 Encounter for palliative care; Z87.891 Personal history of nicotine dependence; E78.00 Pure hypercholesterolemia, unspecified; W01.198A Fall on same level from slipping, tripping and stumbling with subsequent striking against other object, initial encounter; Y93.01 Activity, walking, marching and hiking; E03.9 Hypothyroidism, unspecified; Z79.890 Hormone replacement therapy; J45.909 Unspecified asthma, uncomplicated; Z79.51 Long term (current) use of inhaled steroids; K21.9 Gastro-esophageal reflux disease without esophagitis; Z79.899 Other long term (current) drug therapy; Z98.41 Cataract extraction status, right eye; Z98.42 Cataract extraction status, left eye; Z90.49 Acquired absence of other specified parts of digestive tract; Z98.51 Tubal ligation status; Z85.118 Personal history of other malignant neoplasm of bronchus and lung
CPT/HCPCS: 72100; 73502; 96372; 96374; 96376; 99285; A4216